=== PATIENT | female | born 1990 | race Caucasian/White ===

== ENCOUNTER 2019-10-19 11:57 | Observation (INO) | payer OTHER ==
[2019-10-19 12:05] VITALS: TEMP 98
[2019-10-19] MEDS ORDERED: SODIUM CHLORIDE 0.9% 1,000 ML IV ONE ×2 (12:17→16:05)
[2019-10-19 12:39] LABS: Basophils # (A) 0.1 k/uL (0-0.2); Basophils % (A) 1 %; Eosinophils # (A) 0.2 k/uL (0-0.7); Eosinophils % (A) 1 %; HCT 44.3 % (34.0-46.0); HGB 14.3 gm/dL (11.4-16.0); Lymphocytes # (A) 2.1 k/uL (1.0-4.8); Lymphocytes % (A) 17 %; MCH 30.4 pg (25.0-35.0); MCHC 32.4 g/dL (31.0-37.0); MCV 93.9 fL (80.0-100.0); Mean Platelet Volume 6.4; Monocytes # (A) 0.5 k/uL (0-1.0); Monocytes % (A) 4 %; Neutrophils # (A) 9.5 k/uL (1.3-7.7); Neutrophils % (A) 77 %; Platelet Count 370 k/uL (150-450); RBC 4.72 m/uL (3.80-5.40); RDW 12.5 % (11.5-15.5); WBC 12.5 k/uL (3.8-10.6)
[2019-10-19 12:48] LABS: ALT 26 U/L (9-52); AST 20 U/L (14-36); African American GFR (CKD) 62 (>60 ml/min/1.73 sqM); Albumin 4.1 g/dL (3.5-5.0); Alkaline Phosphatase 75 U/L (38-126); Anion Gap 14 mmol/L; Blood Urea Nitrogen 28 mg/dL (7-17); Calcium 9.8 mg/dL (8.4-10.2); Carbon Dioxide 20 mmol/L (22-30); Chloride 103 mmol/L (98-107); Glucose 388 mg/dL (74-99); Non-African American GFR(CKD) 54 (>60 ml/min/1.73 sqM); Potassium 4.4 mmol/L (3.5-5.1); Sodium 137 mmol/L (137-145); Total Bilirubin 0.8 mg/dL (0.2-1.3); Total Protein 6.8 g/dL (6.3-8.2)
--- NOTE | 2019-10-19 12:57 | ED ---
General Adult HPI - General Chief complaint: Nausea/Vomiting/Diarrhea Stated complaint: Eye Pain & hyperglycemia Time Seen by Provider: 10/19/19 12:05 Source: patient, RN notes reviewed Mode of arrival: ambulatory Limitations: no limitations - History of Present Illness Initial comments: This is a pleasant 29-year-old female presents emergency Department with chief complaint of nausea vomiting hyperglycemia, left eye changes. Patient states that she routinely has elevated blood sugar treated for 5 or so she feels that she may be in DKA. She had associated nausea vomiting abdominal discomfort is not feeling well. Fatigue. Patient states she does feel slightly improved after vomiting prior to arrival. She has no localized abdominal pain no recent cough or cold-like symptoms no URI fevers or chills. Patient states proximal one hour prior arrival she noticed her left eye had this dark stringy like structure. She states that she got there something in front of her realize it was in her vision. She states that she moves quickly does move it seems to be in approximately 10 o'clock position. She states it is more reddish discoloration at this time. She has no pain with ocular movement. Patient states that she had no trauma she does admit that she's had prior surgery left eye for hemorrhaging from her diabetes. She states this was done in November - Related Data Home Medications Medication Instructions Recorded Confirmed ALPRAZolam [Xanax] 0.5 mg PO Q8H PRN 11/16/14 11/16/14 INSULIN ASPART (NovoLOG) [NovoLOG 0 unit SQ TID 11/16/14 11/16/14 (formulary)] Pantoprazole Sodium [Protonix] 40 mg PO DAILY 11/16/14 11/16/14 Previous Rx's Medication Instructions Recorded Insulin Detemir (Levemir) [Levemir] 25 unit SQ BID #1 vial 11/18/14 Vancomycin Oral Solution 250 mg PO Q6HR 14 Days ml 11/18/14 traMADol HCl [Ultram] 50 mg PO QID PRN #40 tab 11/18/14 Allergies Allergy/AdvReac Type Severity Reaction Status Date / Time acetaminophen Allergy Unknown Verified 10/19/19 12:04 [From Darvocet-N] propoxyphene Allergy Unknown Verified 10/19/19 12:04 [From Darvocet-N] tramadol Allergy Unknown Verified 10/19/19 12:04 hydromorphone HCl AdvReac Anaphylaxis Verified 10/19/19 12:03 [From Dilaudid] venom-honey bee AdvReac Unknown Verified 10/19/19 12:03 [bee venom (honey bee)] Review of Systems ROS Statement: Those systems with pertinent positive or pertinent negative responses have been documented in the HPI. ROS Other: All systems not noted in ROS Statement are negative. Past Medical History Past Medical History: Diabetes Mellitus, GERD/Reflux, Hypertension Additional Past Medical History / Comment(s): left leg fracture last week(TIBIA) History of Any Multi-Drug Resistant Organisms: C-DIFF Date of last positivie culture/infection: 2013 MDRO Source:: stool Past Surgical History: Adenoidectomy, Cholecystectomy, Orthopedic Surgery, Tonsi llectomy Additional Past Surgical History / Comment(s): 2 KNEE SCOPES, EAR TUBES Past Anesthesia/Blood Transfusion Reactions: No Reported Reaction Past Psychological History: Anxiety Smoking Status: Never smoker Past Alcohol Use History: None Reported Past Drug Use History: None Reported - Past Family History Father Family Medical History: Unable to Obtain Mother Family Medical History: No Reported History General Exam Limitations: no limitations General appearance: alert, in no apparent distress Head exam: Present: atraumatic, normocephalic, normal inspection Eye exam: Present: normal appearance, PERRL, EOMI, other (Left Pressure 28, pressure right 25). Absent: scleral icterus, conjunctival injection, periorbital swelling Pupils: Present: normal accommodation ENT exam: Present: normal exam, normal oropharynx, mucous membranes moist Neck exam: Present: normal inspection, full ROM. Absent: tenderness, meningismus, lymphadenopathy Respiratory exam: Present: normal lung sounds bilaterally. Absent: respiratory distress, wheezes, rales, rhonchi, stridor Cardiovascular Exam: Present: regular rate, normal rhythm, normal heart sounds. Absent: systolic murmur, diastolic murmur, rubs, gallop, clicks GI/Abdominal exam: Present: soft, normal bowel sounds. Absent: distended, tenderness, guarding, rebound, rigid Course Vital Signs 10/19/19 12:01 Temperature 98.0 F Pulse Rate 108 H Respiratory 16 Rate Blood Pressure 129/84 O2 Sat by Pulse 100 Oximetry Medical Decision Making - Medical Decision Making Patient will be admitted for DKA, patient's case discussed with service parts driver Dr. Herrera advised to call Dr. Batres who is familiar with the patient. I did discuss the case with Dr. Batres who will evaluate the patient, follow-up also in office believes it is related to a vitreous hemorrhage - Lab Data Result diagrams: 10/19/19 10:15 10/19/19 10:15 Lab Results 10/19/19 10/19/19 10/19/19 Range/Units 10:15 10:15 10:15 WBC 12.5 H (3.8-10.6) k/uL RBC 4.72 (3.80-5.40) m/uL Hgb 14.3 (11.4-16.0) gm/dL Hct 44.3 (34.0-46.0) % MCV 93.9 (80.0-100.0) fL MCH 30.4 (25.0-35.0) pg MCHC 32.4 (31.0-37.0) g/dL RDW 12.5 (11.5-15.5) % Plt Count 370 (150-450) k/uL Neutrophils % 77 % Lymphocytes % 17 % Monocytes % 4 % Eosinophils % 1 % Basophils % 1 % Neutrophils # 9.5 H (1.3-7.7) k/uL Lymphocytes # 2.1 (1.0-4.8) k/uL Monocytes # 0.5 (0-1.0) k/uL Eosinophils # 0.2 (0-0.7) k/uL Basophils # 0.1 (0-0.2) k/uL Sodium 137 (137-145) mmol/L Potassium 4.4 (3.5-5.1) mmol/L Chloride 103 (98-107) mmol/L Carbon Dioxide 20 L (22-30) mmol/L Anion Gap 14 mmol/L BUN 28 H (7-17) mg/dL Creatinine 1.35 H (0.52-1.04) mg/dL Est GFR (CKD-EPI)AfAm 62 (>60 ml/min/1.73 sqM) Est GFR (CKD-EPI)NonAf 54 (>60 ml/min/1.73 sqM) Glucose 388 H (74-99) mg/dL Plasma Lactic Acid Christopher 1.0 (0.7-2.0) mmol/L Calcium 9.8 (8.4-10.2) mg/dL Total Bilirubin 0.8 (0.2-1.3) mg/dL AST 20 (14-36) U/L ALT 26 (9-52) U/L Alkaline Phosphatase 75 (38-126) U/L Total Protein 6.8 (6.3-8.2) g/dL Albumin 4.1 (3.5-5.0) g/dL Lipase 223 (23-300) U/L Urine Color Urine Appearance (Clear) Urine pH (5.0-8.0) Ur Specific [place] (1.001-1.035) Urine Protein (Negative) Urine Glucose (UA) (Negative) Urine Ketones (Negative) Urine Blood (Negative) Urine Nitrite (Negative) Urine Bilirubin (Negative) Urine Urobilinogen (<2.0) mg/dL Ur Leukocyte Esterase (Negative) Urine RBC (0-5) /hpf Urine WBC (0-5) /hpf Ur Squamous Epith Cells (0-4) /hpf Urine Bacteria (None) /hpf Urine Mucus (None) /hpf Urine HCG, Qual (Not Detectd) Acetone, Qual Positive (Negative) 10/19/19 10/19/19 Range/Units 12:46 12:46 WBC (3.8-10.6) k/uL RBC (3.80-5.40) m/uL Hgb (11.4-16.0) gm/dL Hct (34.0-46.0) % MCV (80.0-100.0) fL MCH (25.0-35.0) pg MCHC (31.0-37.0) g/dL RDW (11.5-15.5) % Plt Count (150-450) k/uL Neutrophils % % Lymphocytes % % Monocytes % % Eosinophils % % Basophils % % Neutrophils # (1.3-7.7) k/uL Lymphocytes # (1.0-4.8) k/uL Monocytes # (0-1.0) k/uL Eosinophils # (0-0.7) k/uL Basophils # (0-0.2) k/uL Sodium (137-145) mmol/L Potassium (3.5-5.1) mmol/L Chloride (98-107) mmol/L Carbon Dioxide (22-30) mmol/L Anion Gap mmol/L BUN (7-17) mg/dL Creatinine (0.52-1.04) mg/dL Est GFR (CKD-EPI)AfAm (>60 ml/min/1.73 sqM) Est GFR (CKD-EPI)NonAf (>60 ml/min/1.73 sqM) Glucose (74-99) mg/dL Plasma Lactic Acid Christopher (0.7-2.0) mmol/L Calcium (8.4-10.2) mg/dL Total Bilirubin (0.2-1.3) mg/dL AST (14-36) U/L ALT (9-52) U/L Alkaline Phosphatase (38-126) U/L Total Protein (6.3-8.2) g/dL Albumin (3.5-5.0) g/dL Lipase (23-300) U/L Urine Color Light Yellow Urine Appearance Clear (Clear) Urine pH 5.5 (5.0-8.0) Ur Specific [place] 1.016 (1.001-1.035) Urine Protein 2+ H (Negative) Urine Glucose (UA) 4+ H (Negative) Urine Ketones 2+ H (Negative) Urine Blood Small H (Negative) Urine Nitrite Negative (Negative) Urine Bilirubin Negative (Negative) Urine Urobilinogen <2.0 (<2.0) mg/dL Ur Leukocyte Esterase Negative (Negative) Urine RBC 6 H (0-5) /hpf Urine WBC 1 (0-5) /hpf Ur Squamous Epith Cells 1 (0-4) /hpf Urine Bacteria Occasional H (None) /hpf Urine Mucus Rare H (None) /hpf Urine HCG, Qual Not Detected (Not Detectd) Acetone, Qual (Negative) Critical Care Time Critical Care Time: Yes Total Critical Care Time: 35 Critical Care Time: Total 35 minutes of critical care, use initially evaluated patient, reviewed past medical history medications and ordered labs in urinalysis. Patient vomiting DKA with a glucose of 388, bicarbonate 20 with 2+ ketones and acetone positive. Patient will be admitted for IV insulin, IV hydration. Patient also had visual changes in which case discussed with ophthalmology for further evaluation. Disposition Clinical Impression: DKA (diabetic ketoacidoses), Visual disturbance Disposition[facility] Condition: Fair Referrals: None,Stated [Primary Care Provider] - 1-2 days
[2019-10-19 13:11] LABS: Appearance,Urine Clear (Clear); Bacteria,Urine Occasional /hpf; Bilirubin,Urine Negative (Negative); Blood,Urine Small (Negative); Color,Urine Light Yellow; Glucose,Urine (UA) 4+ (Negative); Leukocyte Esterase,Urine Negative (Negative); Mucus,Urine Rare /hpf; Nitrite,Urine Negative (Negative); PH, Urine 5.5 (5.0-8.0); Protein,Urine 2+ (Negative); RBC,Urine 6 /hpf (0-5); Specific Gravity,Urine 1.016 (1.001-1.035); Squamous Epithelial Cell,Urine 1 /hpf (0-4); Urobilinogen,Urine <2.0 mg/dL (<2.0); WBC,Urine 1 /hpf (0-5)
[2019-10-19 13:19] LABS: Ketones,Urine 2+ (Negative)
[2019-10-19] MEDS ORDERED: SODIUM CHLORIDE 0.9% 1,000 ML IV SCH (13:45)
[2019-10-19] MEDS ORDERED: INSULIN REGULAR 100 UNIT in SODIUM CHLORIDE 0.9% 100 ML IV SCH (13:45)
[2019-10-19 14:17] LABS: Glucose,Whole Blood 264 mg/dL (75-99)
[2019-10-19 14:27] VITALS: RESP 18
[2019-10-19 14:44] LABS: VBG PH 7.32 (7.31-7.41)
[2019-10-19] MEDS ORDERED: D5-0.45% NACL WITH KCL 20MEQ/L 1,000 ML IV SCH (15:00)
[2019-10-19 16:10] VITALS: BP 122/69; PULSE 100
[2019-10-19] MEDS ORDERED: ONDANSETRON 4 MG/2 ML VIAL IVP PRN (16:12)
[2019-10-19] MEDS ORDERED: ACETAMINOPHEN TAB 325 MG TAB PO PRN (16:12)
[2019-10-19] MEDS ORDERED: NALOXONE 0.4 MG/ML 1 ML VIAL IV PRN (16:12)
[2019-10-19 16:37] LABS: Glucose,Whole Blood 305 mg/dL (75-99)
[2019-10-19] MEDS ORDERED: ONDANSETRON 4 MG TAB PO PRN (16:59)
[2019-10-19] MEDS ORDERED: hydrOXYzine PAMOATE 25 MG CAP PO PRN (16:59)
[2019-10-19] MEDS ORDERED: Insulin Aspart (For Pump) 100 UNIT/ML VIAL SQ-PUMP SCH (17:00)
--- NOTE | 2019-10-19 17:04 | P.HPIM ---
History of Present Illness H&P Date: 10/19/19 Chief Complaint: high blood sugars Patient is a 29-year-old female past medical history of type 1 diabetes mellitus diagnosed at age 7 who wears a continuous pump as well as a continuous 24-hour glucose monitor, chronic kidney disease, acid reflux, and high blood pressure presented to the emergency department with complaints of visual changes in her outer upper visual field on the left. She underwent an extensive evaluation in the ER. On arrival she was slightly tachycardic without a pulse of 108 her vital signs were otherwise within normal limits. Urinalysis showed slightly elevated white blood cell count of 12.5, carbon dioxide 20, anion gap 14, BUN 28, creatinine 1.35 and glucose of 388. She was acetone positive. VBG showed pH of 7.32. She was given 1 L of IV fluids. An insulin drip was ordered. She was then started on D5 half-normal with 20 of KCl. Patient seen and examined in the emergency department. She states that she felt herself going into DKA and had been chasing some high blood sugars over the last 24 hours. Today she self-induced vomiting. After she vomited she noticed a floater in her left eye upper outer quadrant. She states that it persisted and has not changed with where she is looking her or what she is focusing on. She does have some pressure but no pain behind the eye. She reports this as a Brown ready and of cloudy-looking area. She describes it almost is of Micronesian smoke. She denies any headaches, visual loss, decreased visual acuity, flashes of light or scotomas. She denies any recent illnesses such as cough, cold, fever, flu, unexplained diarrhea, or urinary tract symptoms. She reports that she has a history of multiple bouts of DKA her last BM year ago. She follows with Dr. Camarena Her last A1c was 9.2 prior to that it had been 14. She believes that the flare this time is being caused by stress. She is currently working 3 jobs. She states she does not fill ill overall. She reports that she only came to the ER secondary to her visual changes and wanting tube exit fluid. She feels a s though she could manage her DKA at home. She states she has had sugars up to the 700s. She denies any increased thirst or urination. She feels as though she was perfectly capable to follow-up in the outpatient setting for her DKA. Review of Systems Pertinent positives and negatives as discussed in HPI, a complete review of systems was performed and all other systems are negative. Past Medical History Past Medical History: Diabetes Mellitus, GERD/Reflux, Hypertension Additional Past Medical History / Comment(s): Neuropathy, epilepsy, gastroparesis, depression, anxiety History of Any Multi-Drug Resistant Organisms: C-DIFF Date of last positivie culture/infection: 2013 MDRO Source:: stool Past Surgical History: Adenoidectomy, Cholecystectomy, Orthopedic Surgery, Tonsillectomy Additional Past Surgical History / Comment(s): 2 KNEE SCOPES, EAR TUBES, a dditional left knee surgery related to fracture Past Anesthesia/Blood Transfusion Reactions: No Reported Reaction Past Psychological History: Anxiety Smoking Status: Never smoker Past Alcohol Use History: None Reported Past Drug Use History: None Reported Additional History: , currently working 3 jobs - Past Family History Father Family Medical History: Unable to Obtain Mother Family Medical History: No Reported History Grandfather Additional Family Medical History / Comment(s): Diabetes mellitus type 2 Medications and Allergies Home Medications Medication Instructions Recorded Confirmed Type RX: Pantoprazole Sodium [Protonix] 40 mg PO DAILY 11/16/14 10/19/19 History Divalproex Sodium [Depakote] 500 mg PO BID 10/19/19 10/19/19 History Insulin Aspart (For Pump) [NovoLOG 0.01 unit SQ-PUMP CONTINUOUS 10/19/19 10/19/19 History (For Pump)] Levothyroxine Sodium [Synthroid] 50 mcg PO DAILY 10/19/19 10/19/19 History Metoclopramide [Reglan] 10 mg PO ACHS 10/19/19 10/19/19 History OLANZapine [ZyPREXA] 2.5 mg PO HS 10/19/19 10/19/19 History Ondansetron HCl [Zofran] 8 mg PO Q12H PRN 10/19/19 10/19/19 History RX: Gabapentin 600 mg PO HS 10/19/19 10/19/19 History amLODIPine [Norvasc] 5 mg PO DAILY 10/19/19 10/19/19 History hydrOXYzine PAMOATE [Vistaril] 50 mg PO TID PRN 10/19/19 10/19/19 History lamoTRIgine [LaMICtal] 25 mg PO HS 10/19/19 10/19/19 History valACYclovir [Valtrex] 500 mg PO DAILY 10/19/19 10/19/19 History Allergies Allergy/AdvReac Type Severity Reaction Status Date / Time propoxyphene Allergy Unknown Verified 10/19/19 14:52 [From Darvocet-N] tramadol Allergy Unknown Verified 10/19/19 14:52 hydromorphone HCl AdvReac Anaphylaxis Verified 10/19/19 14:52 [From Dilaudid] venom-honey bee AdvReac Unknown Verified 10/19/19 14:52 [bee venom (honey bee)] Physical Exam Osteopathic Statement: *. No significant issues noted on an osteopathic structural exam other than those noted in the History and Physical/Consult. Vitals: Vital Signs Temp Pulse Resp BP Pulse Ox 10/19/19 15:12 98.0 F 91 18 116/70 98 10/19/19 14:25 98 18 140/90 99 10/19/19 12:01 98.0 F 108 H 16 129/84 100 Intake and Output 10/19/19 10/19/19 10/19/19 06:59 14:59 22:59 Other: Weight 66.587 kg General: non toxic, no distress, appears at stated age, normal weight Derm: multiple tattoos, no unusual rashes/lesions no unusual ecchymoses, warm, dry Head: atraumatic, normocephalic, symmetric Eyes: EOMI, no lid lag, anicteric sclera, pupils equal round reactive to light, visual acuity intact, visual armendariz testing intact ENT: Nose and ears atraumatic, no thrush, no pharyngeal erythema Neck: No thyromegaly, no cervical lymphadenopathy, trachea midline, supple Mouth: no lip lesion, mucus membranes dry Cardiovascular: S1S2 reg, no murmur, positive posterior tibial pulse bilateral, no edema, capillary refill less than 2 seconds Lungs: CTA bilateral, no rhonchi, no rales , no accessory muscle use Abdominal: soft, nontender to palpation, no guarding, no appreciable organomegaly, normal bowel sounds Ext: no gross muscle atrophy, muscle strength 5 out of 5 in all 4 extremities grossly, no contractures, Neuro: CN II-XI grossly intact, light touch intact all 4 extremities, finger to nose within normal limits, Psych: Alert, oriented, appropriate affect Results CBC & Chem 7: 10/19/19 10:15 10/19/19 10:15 Labs: Abnormal Lab Results - Last 24 Hours (Table) 10/19/19 10/19/19 10/19/19 Range/Units 10:15 10:15 12:46 WBC 12.5 H (3.8-10.6) k/uL Neutrophils # 9.5 H (1.3-7.7) k/uL VBG HCO3 (24-28) mmol/L Carbon Dioxide 20 L (22-30) mmol/L BUN 28 H (7-17) mg/dL Creatinine 1.35 H (0.52-1.04) mg/dL Glucose 388 H (74-99) mg/dL POC Glucose (mg/dL) (75-99) mg/dL Urine Protein 2+ H (Negative) Urine Glucose (UA) 4+ H (Negative) Urine Ketones 2+ H (Negative) Urine Blood Small H (Negative) Urine RBC 6 H (0-5) /hpf Urine Bacteria Occasional H (None) /hpf Urine Mucus Rare H (None) /hpf 10/19/19 10/19/19 Range/Units 14:10 14:15 WBC (3.8-10.6) k/uL Neutrophils # (1.3-7.7) k/uL VBG HCO3 21 L (24-28) mmol/L Carbon Dioxide (22-30) mmol/L BUN (7-17) mg/dL Creatinine (0.52-1.04) mg/dL Glucose (74-99) mg/dL POC Glucose (mg/dL) 264 H (75-99) mg/dL Urine Protein (Negative) Urine Glucose (UA) (Negative) Urine Ketones (Negative) Urine Blood (Negative) Urine RBC (0-5) /hpf Urine Bacteria (None) /hpf Urine Mucus (None) /hpf Thrombosis Risk Factor Assmnt - DVT/VTE Prophylaxis DVT/VTE Prophylaxis: Low risk, early ambulation encouraged Assessment and Plan Assessment: Mild DKA - additional 1L bolus of NS - repeat labs at 1730 - Continue with pump - q 1 hour accuchecks - likely home tonight if AG improved and BS controlled after IVF Visual disturbance - Can be seen in office on Wednesday by Dr. Hutchins - Spoke with Dr. Batres HTN, controlled - resume home medications CKD III - continue out patient follow-up, patient is a jacobs has seen nephrology in the past GERD - PPI The patient is placed in observation with an anticipated less than 2 midnight stay for evaluation of mild DKA. DVT prophylaxis: early ambulation Discussed with: Patient, , nursing, Dr. Batres Anticipated discharge date: tonight or in AM Anticipated discharge place: home A total of 75 minutes was spent on the care of this complex patient more than 50% of the time was spent in counseling and care coordination.
[2019-10-19] MEDS ORDERED: METOCLOPRAMIDE 10 MG TAB PO SCH (17:30)
[2019-10-19 18:40] LABS: Calcium 8.5 mg/dL (8.4-10.2); Potassium 4.4 mmol/L (3.5-5.1)
--- NOTE | 2019-10-19 19:00 | P.DS ---
Providers Date of admission: 10/19/19 13:34 Expected date of discharge: 10/19/19 Attending physician: Karthikeyan Copeland MD Primary care physician: Stated None Hospital Course: Discharge Diagnosis: milkd DKA, resolved Visual disturbance HTN CKD III GERD Hospital Course: Patient is a 29-year-old female past medical history of type 1 diabetes mellitus diagnosed at age 7 who wears a continuous pump as well as a continuous 24-hour glucose monitor, chronic kidney disease, acid reflux, and high blood pressure presented to the emergency department with complaints of visual changes in her outer upper visual field on the left. She underwent an extensive evaluation in the ER. On arrival she was slightly tachycardic without a pulse of 108 her vital signs were otherwise within normal limits. Urinalysis showed slightly elevated white blood cell count of 12.5, carbon dioxide 20, anion gap 14, BUN 28, creatinine 1.35 and glucose of 388. She was acetone positive. VBG showed pH of 7.32. She was given 1 L of IV fluids. An insulin drip was ordered but was not administered in the ER. She was then started on D5 half-normal with 20 of KCl her sugar did go up slightly with fluids containing glucose. She was admitted. She recieved another 1L bolus of NS< D5 1/2 NS was stopped. Labs were repeated and Anion gap was close slightly acidotic due to increased chloride form IVF. She was feeling well and was determined stable for discharge home. I did speak with optho. Patient is aware to call tomorrow for and appointment on Wednesday with Dr. Hutchins. She will stay off work until she is seen by him. For physical exam see H and P same date, A total of 25 minutes of time were spent preparing this complex discharge summary . Patient Condition at Discharge: Stable Plan - Discharge Summary Discharge Rx Participant: No New Discharge Prescriptions: Continue Pantoprazole Sodium [Protonix] 40 mg PO DAILY valACYclovir [Valtrex] 500 mg PO DAILY hydrOXYzine PAMOATE [Vistaril] 50 mg PO TID PRN PRN Reason: Itching OLANZapine [ZyPREXA] 2.5 mg PO HS amLODIPine [Norvasc] 5 mg PO DAILY Ondansetron HCl [Zofran] 8 mg PO Q12H PRN PRN Reason: Nausea Insulin Aspart (For Pump) [NovoLOG (For Pump)] 0.01 unit SQ-PUMP CONTINUOUS lamoTRIgine [LaMICtal] 25 mg PO HS Metoclopramide [Reglan] 10 mg PO ACHS Gabapentin 600 mg PO HS Divalproex Sodium [Depakote] 500 mg PO BID Levothyroxine Sodium [Synthroid] 50 mcg PO DAILY Discharge Medication List Pantoprazole Sodium [Protonix] 40 mg PO DAILY 11/16/14 [History] Divalproex Sodium [Depakote] 500 mg PO BID 10/19/19 [History] Gabapentin 600 mg PO HS 10/19/19 [History] Insulin Aspart (For Pump) [NovoLOG (For Pump)] 0.01 unit SQ-PUMP CONTINUOUS 10/19/19 [History] Levothyroxine Sodium [Synthroid] 50 mcg PO DAILY 10/19/19 [History] Metoclopramide [Reglan] 10 mg PO ACHS 10/19/19 [History] OLANZapine [ZyPREXA] 2.5 mg PO HS 10/19/19 [History] Ondansetron HCl [Zofran] 8 mg PO Q12H PRN 10/19/19 [History] amLODIPine [Norvasc] 5 mg PO DAILY 10/19/19 [History] hydrOXYzine PAMOATE [Vistaril] 50 mg PO TID PRN 10/19/19 [History] lamoTRIgine [LaMICtal] 25 mg PO HS 10/19/19 [History] valACYclovir [Valtrex] 500 mg PO DAILY 10/19/19 [History] Follow up Appointment(s)/Referral(s): Jarrett Delgadillo MD [REFERRING] - 1 Week Lenny Hutchins MD [REFERRING] - 1 Week (call office tomorrow for appointment on Tuesday 10/23 ) None,Stated [Primary Care Provider] - 1-2 days Activity/Diet/Wound Care/Special Instructions: Activity: as tolerated Diet: carb consistent encourage fluid Special Instructions: No heavy lifting Discharge/Stand Alone Forms: Work/Release Restrictions Form Discharge Disposition: HOME SELF-CARE
[2019-10-19] MEDS ORDERED: DIVALPROEX 500 MG TABLET.DR PO SCH (21:00)
[2019-10-19] MEDS ORDERED: OLANZapine 2.5 MG TAB PO SCH (21:00)
[2019-10-19] MEDS ORDERED: GABAPENTIN 300 MG CAP PO SCH (21:00)
[2019-10-19] MEDS ORDERED: lamoTRIgine 25 MG TAB PO SCH (21:00)
[2019-10-20] MEDS ORDERED: LEVOTHYROXINE 50 MCG TAB PO SCH (06:30)
[2019-10-20] MEDS ORDERED: PANTOPRAZOLE 40 MG TABLET PO SCH (07:30)
[2019-10-20] MEDS ORDERED: amLODIPine 5 MG TAB PO SCH (09:00)
[2019-10-20] MEDS ORDERED: valACYclovir 500 MG TAB PO SCH (09:00)
== END 2019-10-19 19:27 | disposition home or self-care (01) ==
LOC: EC 11:57 → INTOOBSV 13:34 → 3SCARD 13:34
PROVIDERS: ADMIT Family Medicine; ATTEND Family Medicine
DX: E10.10 Type 1 diabetes mellitus with ketoacidosis without coma (principal); E10.22 Type 1 diabetes mellitus with diabetic chronic kidney disease; E10.43 Type 1 diabetes mellitus with diabetic autonomic (poly)neuropathy; F41.9 Anxiety disorder, unspecified; I12.9 Hypertensive chronic kidney disease with stage 1 through stage 4 chronic kidney disease, or unspecified chronic kidney disease; K21.9 Gastro-esophageal reflux disease without esophagitis; K31.84 Gastroparesis; N18.3 Chronic kidney disease, stage 3 (moderate); Z79.4 Long term (current) use of insulin; Z79.890 Hormone replacement therapy; Z79.899 Other long term (current) drug therapy; Z83.3 Family history of diabetes mellitus; Z96.41 Presence of insulin pump (external) (internal); Z16.24 Resistance to multiple antibiotics; Z90.49 Acquired absence of other specified parts of digestive tract; Z88.5 Allergy status to narcotic agent; Z88.8 Allergy status to other drugs, medicaments and biological substances; Z91.030 Bee allergy status; H53.9 Unspecified visual disturbance
CPT/HCPCS: 96366; 96361; 96365; 99284; 36415; 80053; 80048; 82803; 82009; 83605; 83690; 85025; 81001; 81025; G0378

== ENCOUNTER 2020-08-18 04:07 | Emergency (ER) | payer BC, OTHER ==
[2020-08-18 04:22] VITALS: RESP 18
[2020-08-18] MEDS ORDERED: SODIUM CHLORIDE 0.9% 500 ML 500 ML IV STA (04:32)
[2020-08-18] MEDS ORDERED: HYDROcodone/APAP 5-325MG 1 EACH TAB PO STA (04:33)
--- NOTE | 2020-08-18 05:16 | CT ---
EXAMINATION TYPE: CT brain fabyine wo con DATE OF EXAM: 08/18/2020 COMPARISON: None HISTORY: syncope Headache. Neck pain. CT DLP: 1334.5 mGycm Automated exposure control for dose reduction was used. Ventricles and sulci appear normal. There is no mass effect or midline shift. There is no sign of int racranial hemorrhage. The calvarium is intact. There is no evidence of cerebral edema. Cervical vertebra have normal spacing and alignment. Posterior elements are intact. Facet joints appe ar normal. Prevertebral soft tissues appear normal. The skull base is intact. There is normal aeratio n of the mastoid sinuses. IMPRESSION: Normal CT scan of the brain. Normal CT scan cervical spine.
[2020-08-18 05:35] LABS: Albumin 3.9 g/dL (3.5-5.0); Calcium 9.9 mg/dL (8.4-10.2); Potassium 3.7 mmol/L (3.5-5.1); Total Bilirubin 0.3 mg/dL (0.2-1.3); Total Protein 6.6 g/dL (6.3-8.2)
[2020-08-18 05:39] VITALS: TEMP 98
[2020-08-18 05:46] LABS: Basophils # (A) 0.2 k/uL (0-0.2); Basophils % (A) 1 %; Eosinophils # (A) 0.3 k/uL (0-0.7); Eosinophils % (A) 3 %; HCT 48.5 % (34.0-46.0); HGB 15.5 gm/dL (11.4-16.0); Lymphocytes # (A) 4.6 k/uL (1.0-4.8); Lymphocytes % (A) 38 %; MCH 29.6 pg (25.0-35.0); MCHC 31.9 g/dL (31.0-37.0); MCV 92.7 fL (80.0-100.0); Mean Platelet Volume 7.4; Monocytes # (A) 0.6 k/uL (0-1.0); Monocytes % (A) 5 %; Neutrophils # (A) 6.1 k/uL (1.3-7.7); Neutrophils % (A) 51 %; Platelet Count 349 k/uL (150-450); RBC 5.23 m/uL (3.80-5.40); RDW 12.4 % (11.5-15.5)
--- NOTE | 2020-08-18 06:09 | ED ---
General Adult HPI - General Chief complaint: Syncope Stated complaint: Syncope Time Seen by Provider: 08/18/20 04:22 Source: patient, EMS Mode of arrival: EMS Limitations: no limitations - History of Present Illness Initial comments: This patient is 30-year-old woman with history of multiple previous syncopal episode 2 presents today to be evaluated after she had one of these at home. Patient had gotten up to use the bathroom she states she then had passed out and struck the right side of her head. The patient states she has had history of syncopal episodes but usually it is in response to pain. She does get abdominal pains related to gastroparesis and this is usually caused her syncope in the past. Patient states she is feeling back to her baseline other than a little dull ache. No neurologic symptoms. No chest pain, dyspnea, diaphoresis, nausea or vomiting. Onset/Timin -: hour(s) Location: head Radiation: non-radiation Quality: aching Consistency: constant Improves with: none Worsens with: none Associated Symptoms: syncope Treatments Prior to Arrival: none - Related Data Home Medications Medication Instructions Recorded Confirmed Pantoprazole Sodium [Protonix] 40 mg PO DAILY 11/16/14 10/19/19 Divalproex Sodium [Depakote] 500 mg PO BID 10/19/19 10/19/19 Gabapentin 600 mg PO HS 10/19/19 10/19/19 Insulin Aspart (For Pump) [NovoLOG 0.01 unit SQ-PUMP CONTINUOUS 10/19/19 10/19/19 (For Pump)] Levothyroxine Sodium [Synthroid] 50 mcg PO DAILY 10/19/19 10/19/19 Metoclopramide [Reglan] 10 mg PO ACHS 10/19/19 10/19/19 OLANZapine [ZyPREXA] 2.5 mg PO HS 10/19/19 10/19/19 Ondansetron HCl [Zofran] 8 mg PO Q12H PRN 10/19/19 10/19/19 amLODIPine [Norvasc] 5 mg PO DAILY 10/19/19 10/19/19 hydrOXYzine pamoate [Vistaril] 50 mg PO TID PRN 10/19/19 10/19/19 lamoTRIgine [LaMICtal] 25 mg PO HS 12/05/19 12/05/19 valACYclovir [Valtrex] 500 mg PO DAILY 10/19/19 10/19/19 Allergies Allergy/AdvReac Type Severity Reaction Status Date / Time propoxyphene Allergy Unknown Verified 08/18/20 04:22 [From Darvocet-N] tramadol Allergy Unknown Verified 08/18/20 04:22 hydromorphone HCl AdvReac Anaphylaxis Verified 08/18/20 04:22 [From Dilaudid] venom-honey bee AdvReac Unknown Verified 08/18/20 04:22 [bee venom (honey bee)] Review of Systems ROS Statement: Those systems with pertinent positive or pertinent negative responses have been documented in the HPI. ROS Other: All systems not noted in ROS Statement are negative. Constitutional: Denies: fever, chills, weakness Eyes: Denies: vision change Respiratory: Denies: cough, dyspnea Cardiovascular: Reports: syncope. Denies: chest pain, palpitations, orthopnea, edema Gastrointestinal: Denies: abdominal pain, nausea, vomiting Genitourinary: Denies: dysuria, hematuria Musculoskeletal: Denies: back pain Skin: Denies: rash Neurological: Reports: as per HPI, headache. Denies: weakness, numbness, paresthesias, confusion Hematological/Lymphatic: Denies: easy bleeding Past Medical History Past Medical History: Diabetes Mellitus, GERD/Reflux, Hypertension Additional Past Medical History / Comment(s): Neuropathy, epilepsy, gastropares is, depression, anxiety History of Any Multi-Drug Resistant Organisms: C-DIFF Date of last positivie culture/infection: 2013 MDRO Source:: stool Past Surgical History: Adenoidectomy, Cholecystectomy, Orthopedic Surgery, Tonsillectomy Additional Past Surgical History / Comment(s): 2 KNEE SCOPES, EAR TUBES, additional left knee surgery related to fracture Past Anesthesia/Blood Transfusion Reactions: No Reported Reaction Past Psychological History: Anxiety Smoking Status: Current some day smoker Past Alcohol Use History: None Reported Past Drug Use History: None Reported - Past Family History Father Family Medical History: Unable to Obtain Mother Family Medical History: No Reported History Grandfather Additional Family Medical History / Comment(s): Diabetes mellitus type 2 General Exam General appearance: alert, in no apparent distress Head exam: Present: atraumatic, normocephalic Eye exam: Present: normal appearance, PERRL, EOMI. Absent: scleral icterus, conjunctival injection, nystagmus Neck exam: Present: normal inspection, tenderness (There is mild upper cervical tenderness with no step-off or deformity), full ROM. Absent: meningismus Respiratory exam: Present: normal lung sounds bilaterally. Absent: respiratory distress, wheezes, rales, rhonchi, stridor Cardiovascular Exam: Present: regular rate, normal rhythm, normal heart sounds. Absent: systolic murmur, diastolic murmur, rubs, gallop GI/Abdominal exam: Present: soft. Absent: distended, tenderness, guarding, rebound, rigid, mass Extremities exam: Present: normal inspection, normal capillary refill. Absent: pedal edema, calf tenderness Back exam: Present: normal inspection. Absent: CVA tenderness (R), CVA tenderness (L) Neurological exam: Present: alert, oriented X3, CN II-XII intact. Absent: motor sensory deficit Skin exam: Present: warm, dry, intact, normal color. Absent: rash Course Vital Signs 08/18/20 08/18/20 08/18/20 04:19 05:22 06:20 Temperature 98.2 F 98.0 F Pulse Rate 77 75 85 Respiratory 18 18 18 Rate Blood Pressure 121/83 102/63 110/75 O2 Sat by Pulse 100 98 98 Oximetry Medical Decision Making - Lab Data Result diagrams: 08/18/20 05:14 08/18/20 05:14 Lab Results 08/18/20 08/18/20 08/18/20 Range/Units 05:14 05:14 05:14 WBC 12.0 H (3.8-10.6) k/uL RBC 5.23 (3.80-5.40) m/uL Hgb 15.5 (11.4-16.0) gm/dL Hct 48.5 H (34.0-46.0) % MCV 92.7 (80.0-100.0) fL MCH 29.6 (25.0-35.0) pg MCHC 31.9 (31.0-37.0) g/dL RDW 12.4 (11.5-15.5) % Plt Count 349 (150-450) k/uL Neutrophils % 51 % Lymphocytes % 38 % Monocytes % 5 % Eosinophils % 3 % Basophils % 1 % Neutrophils # 6.1 (1.3-7.7) k/uL Lymphocytes # 4.6 (1.0-4.8) k/uL Monocytes # 0.6 (0-1.0) k/uL Eosinophils # 0.3 (0-0.7) k/uL Basophils # 0.2 (0-0.2) k/uL Sodium 139 (137-145) mmol/L Potassium 3.7 (3.5-5.1) mmol/L Chloride 108 H (98-107) mmol/L Carbon Dioxide 24 (22-30) mmol/L Anion Gap 7 mmol/L BUN 24 H (7-17) mg/dL Creatinine 1.34 H (0.52-1.04) mg/dL Est GFR (CKD-EPI)AfAm 62 (>60 ml/min/1.73 sqM) Est GFR (CKD-EPI)NonAf 54 (>60 ml/min/1.73 sqM) Glucose 109 H (74-99) mg/dL Calcium 9.9 (8.4-10.2) mg/dL Total Bilirubin 0.3 (0.2-1.3) mg/dL AST 23 (14-36) U/L ALT 16 (4-34) U/L Alkaline Phosphatase 71 (38-126) U/L Troponin I <0.012 (0.000-0.034) ng/mL Total Protein 6.6 (6.3-8.2) g/dL Albumin 3.9 (3.5-5.0) g/dL Disposition Clinical Impression: Syncope, Head injury Disposition: HOME SELF-CARE Condition: Good Instructions (If sedation given, give patient instructions): Syncope (ED), Head Injury (ED) Is patient prescribed a controlled substance at d/c from ED?: No Referrals: None,Stated [Primary Care Provider] - 1-2 days
[2020-08-18 06:36] VITALS: BP 110/75; PULSE 85
== END 2020-08-18 06:20 | disposition home or self-care (01) ==
LOC: EC 04:07
DX: R55 Syncope and collapse (principal); S09.90XA Unspecified injury of head, initial encounter; K21.9 Gastro-esophageal reflux disease without esophagitis; K31.84 Gastroparesis; E11.40 Type 2 diabetes mellitus with diabetic neuropathy, unspecified; F41.9 Anxiety disorder, unspecified; F32.9 Major depressive disorder, single episode, unspecified; G40.909 Epilepsy, unspecified, not intractable, without status epilepticus; F17.200 Nicotine dependence, unspecified, uncomplicated; Z79.4 Long term (current) use of insulin; Z79.899 Other long term (current) drug therapy; Z88.8 Allergy status to other drugs, medicaments and biological substances; Z88.5 Allergy status to narcotic agent; Z91.030 Bee allergy status; Z90.49 Acquired absence of other specified parts of digestive tract; W18.39XA Other fall on same level, initial encounter; Y92.002 Bathroom of unspecified non-institutional (private) residence as the place of occurrence of the external cause
CPT/HCPCS: 36415; 70450; 72125; 80053; 84484; 85025; 93005; 99285

== ENCOUNTER 2021-10-14 17:00 | Emergency (ER) | payer BC, OTHER ==
[2021-10-14 17:09] VITALS: TEMP 98.4
[2021-10-14] MEDS ORDERED: SODIUM CHLORIDE 0.9% 1,000 ML IV STA (17:35)
[2021-10-14 18:12] LABS: Basophils # (A) 0.1 k/uL (0-0.2); Basophils % (A) 1 %; Eosinophils # (A) 0.1 k/uL (0-0.7); Eosinophils % (A) 2 %; HCT 40.7 % (34.0-46.0); HGB 14.3 gm/dL (11.4-16.0); Lymphocytes # (A) 1.8 k/uL (1.0-4.8); Lymphocytes % (A) 27 %; MCH 31.8 pg (25.0-35.0); MCHC 35.2 g/dL (31.0-37.0); MCV 90.3 fL (80.0-100.0); Mean Platelet Volume 7.2; Monocytes # (A) 0.4 k/uL (0-1.0); Monocytes % (A) 5 %; Neutrophils # (A) 4.4 k/uL (1.3-7.7); Neutrophils % (A) 64 %; Platelet Count 310 k/uL (150-450); RBC 4.51 m/uL (3.80-5.40); RDW 11.9 % (11.5-15.5); WBC 6.8 k/uL (3.8-10.6)
[2021-10-14 18:27] LABS: VBG PH 7.37 (7.31-7.41)
[2021-10-14 18:36] LABS: ALT 16 U/L (4-34); AST 20 U/L (14-36); African American GFR (CKD) >90 (>60 ml/min/1.73 sqM); Albumin 4.7 g/dL (3.5-5.0); Alkaline Phosphatase 75 U/L (38-126); Anion Gap 8 mmol/L; Blood Urea Nitrogen 8 mg/dL (7-17); Carbon Dioxide 25 mmol/L (22-30); Chloride 107 mmol/L (98-107); Creatine Kinase 88 U/L (30-135); Glucose 87 mg/dL (74-99); Non-African American GFR(CKD) >90 (>60 ml/min/1.73 sqM); Potassium 4.3 mmol/L (3.5-5.1); Sodium 140 mmol/L (137-145); Total Bilirubin 0.3 mg/dL (0.2-1.3); Total Protein 7.9 g/dL (6.3-8.2)
[2021-10-14] MEDS ORDERED: ONDANSETRON 4 MG/2 ML VIAL IVP STA (18:36)
[2021-10-14 18:52] LABS: HCG,Quantitative Serum <2.4 mIU/mL
[2021-10-14] MEDS ORDERED: KETOROLAC 30 MG/ML 1 ML VIAL IVP STA (18:56)
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
--- NOTE | 2021-10-14 19:20 | XR ---
EXAMINATION TYPE: XR chest 2V DATE OF EXAM: 10/14/2021 COMPARISON: EXAMINATION TYPE: XR chest 2V DATE OF EXAM: 10/14/2021 COMPARISON: Chest radiographs 11/17/2014 HISTORY: Tachypnea. Shortness of breath. TECHNIQUE: Frontal and lateral views of the chest are obtained. FINDINGS: There is no focal air space opacity, pleural effusion, or pneumothorax seen. The cardiac silhouette size is within normal limits. The osseous structures are intact. IMPRESSION: No acute cardiopulmonary process.
[2021-10-14 21:10] VITALS: BP 158/103; PULSE 96; RESP 16
== END 2021-10-14 21:10 | disposition home or self-care (01) ==
LOC: EC 17:00
DX: T58.91XA Toxic effect of carbon monoxide from unspecified source, accidental (unintentional), initial encounter (principal); E11.40 Type 2 diabetes mellitus with diabetic neuropathy, unspecified; E11.43 Type 2 diabetes mellitus with diabetic autonomic (poly)neuropathy; K31.84 Gastroparesis; I10 Essential (primary) hypertension; K21.9 Gastro-esophageal reflux disease without esophagitis; F17.200 Nicotine dependence, unspecified, uncomplicated; F12.90 Cannabis use, unspecified, uncomplicated; Z79.4 Long term (current) use of insulin
CPT/HCPCS: 36415; 93005; 80053; 82375; 82550; 82803; 82009; 83605; 84484; 85025; 84702; 71046; 99284; 96374; 96375; J2405; J1885

== ENCOUNTER 2022-07-14 03:11 | Emergency (ER) | payer OTHER ==
[2022-07-14 03:20] VITALS: RESP 16; TEMP 98.3
[2022-07-14] MEDS ORDERED: SODIUM CHLORIDE 0.9% 1,000 ML IV STA ×2 (03:21→06:40)
[2022-07-14] MEDS ORDERED: ACETAMINOPHEN TAB 500 MG TAB PO STA (03:29)
--- NOTE | 2022-07-14 03:41 | ED ---
Syncope HPI - General Source: patient, RN notes reviewed Mode of arrival: EMS Limitations: no limitations <Epi Cote - Last Filed: 07/14/22 03:41> <Polo Edward - Last Filed: 07/14/22 06:56> - General Chief Complaint: Syncope Stated Complaint: Syncope Time Seen by Provider: 07/14/22 03:21 - History of Present Illness Initial Comments: This is a pleasant 32-year-old female with history of type 1 diabetes mellitus, epilepsy, gastroparesis, neuropathy, hypertension, and acid reflux. She presents to the emergency department tonight after having a syncopal episode at work. Patient states she was at work, turned to her coworker and said she needed to sit down. She states that the next thing she knows she was on the ground and waking up. Apparently the patient lost consciousness. Patient states that she is having pain across her forehead. She is describing a significant headache as well as pain below her right eye and over her nasal bone area. Patient also complaining of neck pain. Patient denies recent illness, no fever or chills, no changes in vision or hearing, no sore throat or difficulty with speech, no chest pain or shortness of breath, no abdominal pain, no nausea or vomiting, no changes in urination or bowel movements, no numbness or tingling, no extremity pain, no skin rashes or lesions. Past medical, surgical, social, and family history reviewed. (Epi Cote) - Related Data Home Medications Medication Instructions Recorded Confirmed Insulin Aspart (For Pump) [NovoLOG 0.01 unit SQ-PUMP CONTINUOUS 10/14/21 10/14/21 (For Pump)] Insulin Glargine [Lantus Vial] 28 unit SQ HS 10/14/21 10/14/21 Allergies Allergy/AdvReac Type Severity Reaction Status Date / Time ibuprofen [From Motrin] Allergy Unknown Verified 07/14/22 03:15 propoxyphene Allergy Unknown Verified 07/14/22 03:15 [From Darvocet-N] tramadol Allergy Unknown Verified 07/14/22 03:15 hydromorphone HCl AdvReac Anaphylaxis Verified 07/14/22 03:15 [From Dilaudid] venom-honey bee AdvReac Unknown Verified 07/14/22 03:15 [bee venom (honey bee)] Review of Systems ROS Other: All systems not noted in ROS Statement are negative. <Epi Cote - Last Filed: 07/14/22 03:41> ROS Other: All systems not noted in ROS Statement are negative. <Polo Edward - Last Filed: 07/14/22 06:56> ROS Statement: Those systems with pertinent positive or pertinent negative responses have been documented in the HPI. Past Medical History Past Medical History: Diabetes Mellitus, GERD/Reflux, Hypertension Additional Past Medical History / Comment(s): Neuropathy, epilepsy, gastroparesis, depression, anxiety History of Any Multi-Drug Resistant Organisms: C-DIFF Date of last positivie culture/infection: 2013 MDRO Source:: stool Past Surgical History: Adenoidectomy, Cholecystectomy, Orthopedic Surgery, Tonsillectomy Additional Past Surgical History / Comment(s): 2 KNEE SCOPES, EAR TUBES, additional left knee surgery related to fracture Past Anesthesia/Blood Transfusion Reactions: No Reported Reaction Past Psychological History: Anxiety Smoking Status: Current some day smoker Past Alcohol Use History: None Reported Past Drug Use History: Marijuana - Past Family History Father Family Medical History: Unable to Obtain Mother Family Medical History: No Reported History Grandfather Additional Family Medical History / Comment(s): Diabetes mellitus type 2 <Epi Cote - Last Filed: 07/14/22 03:41> General Exam Limitations: no limitations General appearance: alert, in distress Head exam: Present: other (Patient has tenderness over the glabella, to the inferior orbital rim and over the nasal bones. No significant tenderness elsewhere. Extraocular movements intact. No evidence of entrapment) Eye exam: Present: normal appearance, PERRL, EOMI, nystagmus (A few beats of nonspecific lateral), periorbital tenderness (Right side). Absent: scleral icterus, conjunctival injection, periorbital swelling Pupils: Absent: irregular, unequal ENT exam: Present: normal exam, mucous membranes moist Neck exam: Present: normal inspection, tenderness (Patient has bilateral cervical paraspinal tenderness with mild midline tenderness.). Absent: meningismus, lymphadenopathy Respiratory exam: Present: normal lung sounds bilaterally. Absent: respiratory distress, wheezes, rales, rhonchi, stridor Cardiovascular Exam: Present: regular rate, normal rhythm, normal heart sounds. Absent: systolic murmur, diastolic murmur, rubs, gallop, clicks GI/Abdominal exam: Present: soft, normal bowel sounds. Absent: distended, tenderness, guarding, rebound, rigid Extremities exam: Present: normal inspection, full ROM, normal capillary refill. Absent: tenderness, pedal edema, joint swelling, calf tenderness Back exam: Present: normal inspection Neurological exam: Present: alert, oriented X3, CN II-XII intact Expanded Patient oriented to: Present: person, place, time Speech: Present: fluid speech Cranial nerves: EOM's Intact: Normal, Gag Reflex: Normal, Tongue Deviation: Normal, Facial Sensation: Normal, Facial Palsy with Forehead Movement: Normal, Facial Palsy without Forehead Movement: Normal Cerebellar function: Finger to Nose: Normal, Heel to Garg: Normal Motor strength exam: RUE: 5, LUE: 5, RLE: 5, LLE: 5 Eye Response: (4) open spontaneously Motor Response: (6) obeys commands Verbal Response: (5) oriented [place] Total: 15 Psychiatric exam: Present: normal affect, normal mood Skin exam: Present: warm, dry, intact, normal color. Absent: rash <Epi Cote - Last Filed: 07/14/22 03:41> General appearance: alert, in no apparent distress Head exam: Present: atraumatic, normocephalic, normal inspection Eye exam: Present: normal appearance, PERRL, EOMI. Absent: scleral icterus, conjunctival injection, periorbital swelling ENT exam: Present: normal exam, mucous membranes moist Neck exam: Present: normal inspection. Absent: tenderness, meningismus, lymphadenopathy Respiratory exam: Present: normal lung sounds bilaterally. Absent: respiratory distress, wheezes, rales, rhonchi, stridor Cardiovascular Exam: Present: regular rate, normal rhythm, normal heart sounds. Absent: systolic murmur, diastolic murmur, rubs, gallop, clicks GI/Abdominal exam: Present: soft, normal bowel sounds. Absent: distended, tenderness, guarding, rebound, rigid Extremities exam: Present: normal inspection, full ROM, normal capillary refill. Absent: tenderness, pedal edema, joint swelling, calf tenderness Back exam: Present: normal inspection Neurological exam: Present: alert, oriented X3, CN II-XII intact Psychiatric exam: Present: normal affect, normal mood Skin exam: Present: warm, dry, intact, normal color. Absent: rash <Polo Edward - Last Filed: 07/14/22 06:56> - General Exam Comments Initial Comments: Well-developed, well-nourished 32-year-old female appears to be in mild distress at time I'm seeing her. Cranial nerves II through XII are intact. Does not appear to be overtly ill or toxic. Vital signs are reviewed (Epi Cote) Course <Polo Edward - Last Filed: 07/14/22 06:56> Vital Signs 07/14/22 03:15 Temperature 98.3 F Pulse Rate 98 Respiratory 16 Rate Blood Pressure 137/96 O2 Sat by Pulse 98 Oximetry - Reevaluation(s) Reevaluation #1: 07/14/22 06:51 Medical record is reviewed (Polo Edward) Reevaluation #2: 07/14/22 06:51 Symptoms are improved here in the ER with no recurrent syncope (Polo Edward) Reevaluation #3: 07/14/22 06:51 Issue informed results and questions answered (Polo Edward) EKG Findings - EKG Comments: EKG Findings:: EKG done at 3:19 AM and read by the ED attending physician r eveals sinus rhythm with a rate of 93, normal intervals, no acute ST or T-wave changes. Normal axis. Normal QRS morphology. <Epi Cote - Last Filed: 07/14/22 03:41> Medical Decision Making <Epi Cote - Last Filed: 07/14/22 03:41> - Lab Data Result diagrams: 07/14/22 03:45 07/14/22 03:45 - Radiology Data Radiology results: report reviewed ( CT brain C-spine and facial bones positive for hematoma chest x-ray negative for acute disease ), image reviewed <Polo Edward - Last Filed: 07/14/22 06:56> - Medical Decision Making Type I diabetic female fell from a standing position, had a premonition that she was going to pass out. Patient struck her head and has a significant headache, facial injury, neck pain. Computed tomography scan ordered. Verbal orders to RN for hard cervical collar Patient will be endorsed to the ED attending physician at 4 AM for further evaluation and disposition. The case was discussed in detail with ED attending physician. Presentation, findings, treatment plan discussed in detail. 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 Patient has had injury, hematoma from fall, patient also has urinary tract infection and elevated blood sugar. Here in the ER will be discharged on antibiotics (Polo Edward) - Lab Data Lab Results 07/14/22 07/14/22 07/14/22 Range/Units 03:45 03:45 03:45 WBC 14.3 H (3.8-10.6) k/uL RBC 4.29 (3.80-5.40) m/uL Hgb 12.9 (11.4-16.0) gm/dL Hct 40.3 (34.0-46.0) % MCV 93.9 (80.0-100.0) fL MCH 30.1 (25.0-35.0) pg MCHC 32.1 (31.0-37.0) g/dL RDW 13.6 (11.5-15.5) % Plt Count 401 (150-450) k/uL MPV 7.8 Neutrophils % 67 % Lymphocytes % 20 % Monocytes % 4 % Eosinophils % 8 % Basophils % 1 % Neutrophils # 9.5 H (1.3-7.7) k/uL Lymphocytes # 2.9 (1.0-4.8) k/uL Monocytes # 0.5 (0-1.0) k/uL Eosinophils # 1.1 H (0-0.7) k/uL Basophils # 0.1 (0-0.2) k/uL VBG pH (7.31-7.41) VBG pCO2 (37-51) mmHg VBG HCO3 (24-28) mmol/L Sodium 134 L (137-145) mmol/L Potassium 3.7 (3.5-5.1) mmol/L Chloride 103 (98-107) mmol/L Carbon Dioxide 23 (22-30) mmol/L Anion Gap 8 mmol/L BUN 25 H (7-17) mg/dL Creatinine 1.47 H (0.52-1.04) mg/dL Est GFR (CKD-EPI)AfAm 54 (>60 ml/min/1.73 sqM) Est GFR (CKD-EPI)NonAf 47 (>60 ml/min/1.73 sqM) Glucose 372 H (74-99) mg/dL Calcium 8.7 (8.4-10.2) mg/dL Magnesium 1.8 (1.6-2.3) mg/dL Total Bilirubin 0.2 (0.2-1.3) mg/dL AST 22 (14-36) U/L ALT 29 (4-34) U/L Alkaline Phosphatase 120 (38-126) U/L Troponin I <0.012 (0.000-0.034) ng/mL Total Protein 5.7 L (6.3-8.2) g/dL Albumin 3.1 L (3.5-5.0) g/dL Urine Color Urine Appearance (Clear) Urine pH (5.0-8.0) Ur Specific [place] (1.001-1.035) Urine Protein (Negative) Urine Glucose (UA) (Negative) Urine Ketones (Negative) Urine Blood (Negative) Urine Nitrite (Negative) Urine Bilirubin (Negative) Urine Urobilinogen (<2.0) mg/dL Ur Leukocyte Esterase (Negative) Urine RBC (0-5) /hpf Urine WBC (0-5) /hpf Ur Squamous Epith Cells (0-4) /hpf Urine Mucus (None) /hpf Urine HCG, Qual (Not Detectd) Acetone, Qual Negative (Negative) 07/14/22 07/14/22 07/14/22 Range/Units 03:45 04:21 04:21 WBC (3.8-10.6) k/uL RBC (3.80-5.40) m/uL Hgb (11.4-16.0) gm/dL Hct (34.0-46.0) % MCV (80.0-100.0) fL MCH (25.0-35.0) pg MCHC (31.0-37.0) g/dL RDW (11.5-15.5) % Plt Count (150-450) k/uL MPV Neutrophils % % Lymphocytes % % Monocytes % % Eosinophils % % Basophils % % Neutrophils # (1.3-7.7) k/uL Lymphocytes # (1.0-4.8) k/uL Monocytes # (0-1.0) k/uL Eosinophils # (0-0.7) k/uL Basophils # (0-0.2) k/uL VBG pH 7.36 (7.31-7.41) VBG pCO2 45 (37-51) mmHg VBG HCO3 25 (24-28) mmol/L Sodium (137-145) mmol/L Potassium (3.5-5.1) mmol/L Chloride (98-107) mmol/L Carbon Dioxide (22-30) mmol/L Anion Gap mmol/L BUN (7-17) mg/dL Creatinine (0.52-1.04) mg/dL Est GFR (CKD-EPI)AfAm (>60 ml/min/1.73 sqM) Est GFR (CKD-EPI)NonAf (>60 ml/min/1.73 sqM) Glucose (74-99) mg/dL Calcium (8.4-10.2) mg/dL Magnesium (1.6-2.3) mg/dL Total Bilirubin (0.2-1.3) mg/dL AST (14-36) U/L ALT (4-34) U/L Alkaline Phosphatase (38-126) U/L Troponin I (0.000-0.034) ng/mL Total Protein (6.3-8.2) g/dL Albumin (3.5-5.0) g/dL Urine Color Light Yellow Urine Appearance Clear (Clear) Urine pH 7.0 (5.0-8.0) Ur Specific [place] 1.018 (1.001-1.035) Urine Protein 3+ H (Negative) Urine Glucose (UA) 4+ H (Negative) Urine Ketones Negative (Negative) Urine Blood Small H (Negative) Urine Nitrite Negative (Negative) Urine Bilirubin Negative (Negative) Urine Urobilinogen <2.0 (<2.0) mg/dL Ur Leukocyte Esterase Small H (Negative) Urine RBC 2 (0-5) /hpf Urine WBC 28 H (0-5) /hpf Ur Squamous Epith Cells 1 (0-4) /hpf Urine Mucus Rare H (None) /hpf Urine HCG, Qual Not Detected (Not Detectd) Acetone, Qual (Negative) Disposition <Epi Cote - Last Filed: 07/14/22 03:41> Is patient prescribed a controlled substance at d/c from ED?: No Time of Disposition: 06:55 <Polo Edward - Last Filed: 07/14/22 06:56> Clinical Impression: Vasovagal syncope, Hyperglycemia, Dehydration, UTI (urinary tract infection), Scalp hematoma Disposition: HOME SELF-CARE Condition: Good Instructions (If sedation given, give patient instructions): Diabetic Hyperglycemia (ED), Urinary Tract Infection in Women (ED), Syncope (ED), Hematoma (ED) Referrals: None,Stated [Primary Care Provider] - 1-2 days
[2022-07-14 04:07] LABS: Basophils # (A) 0.1 k/uL (0-0.2); Basophils % (A) 1 %; Eosinophils # (A) 1.1 k/uL (0-0.7); Eosinophils % (A) 8 %; HCT 40.3 % (34.0-46.0); HGB 12.9 gm/dL (11.4-16.0); Lymphocytes # (A) 2.9 k/uL (1.0-4.8); Lymphocytes % (A) 20 %; MCH 30.1 pg (25.0-35.0); MCHC 32.1 g/dL (31.0-37.0); MCV 93.9 fL (80.0-100.0); Mean Platelet Volume 7.8; Monocytes # (A) 0.5 k/uL (0-1.0); Monocytes % (A) 4 %; Neutrophils # (A) 9.5 k/uL (1.3-7.7); Neutrophils % (A) 67 %; Platelet Count 401 k/uL (150-450); RBC 4.29 m/uL (3.80-5.40); RDW 13.6 % (11.5-15.5); WBC 14.3 k/uL (3.8-10.6)
[2022-07-14 04:29] LABS: VBG PH 7.36 (7.31-7.41)
--- NOTE | 2022-07-14 04:30 | CT ---
EXAMINATION TYPE: CT facial bones wo con DATE OF EXAM: 07/14/2022 COMPARISON: HISTORY: Syncope/head injury/facial injury/neck pain after fall. CT DLP: 789 mGycm Automated exposure control for dose reduction was used. Images obtained from the bottom of the mandible to the top of the frontal sinuses with no contrast. Mandibular ring is intact. Zygomatic arches appear normal. Temporomandibular joints are intact. Nasal bone is intact. Orbital margins are intact. No retro-orbital mass. The globes are symmetric. There i s no evidence of orbital blowout fracture. Maxilla is intact. Soft tissues appear intact. IMPRESSION: Negative CT scan of the facial bones. No fracture.
--- NOTE | 2022-07-14 04:33 | XR ---
EXAMINATION TYPE: XR chest 1V portable DATE OF EXAM: 07/14/2022 COMPARISON: 10/14/2021 HISTORY: TECHNIQUE: FINDINGS: Heart and mediastinum are normal. Lungs are clear. Diaphragm is normal. Bony thorax appears normal. IMPRESSION: Normal chest. No change.
--- NOTE | 2022-07-14 04:40 | CT ---
EXAMINATION TYPE: CT brain maulik wo con DATE OF EXAM: 07/14/2022 COMPARISON: None HISTORY: Syncope/head injury/facial injury/neck pain after fall. CT DLP: 306.9 mGycm Automated exposure control for dose reduction was used. Images of the brain and cervical spine obtained with no contrast. Ventricles and sulci appear normal. There is no mass effect or midline shift. No sign of intracranial hemorrhage. Calvarium is intact. No evidence of cerebral edema. Sella turcica is normal. The cervical vertebra have normal spacing and alignment. Posterior elements are intact. Facet joints are intact. No compression fracture. Prevertebral soft tissues are intact. There is minor spurring an teriorly at C5-6. IMPRESSION: Negative CT scan of the brain. Negative CT scan cervical spine.
[2022-07-14 04:46] LABS: Appearance,Urine Clear (Clear); Bilirubin,Urine Negative (Negative); Blood,Urine Small (Negative); Color,Urine Light Yellow; Glucose,Urine (UA) 4+ (Negative); Ketones,Urine Negative (Negative); Leukocyte Esterase,Urine Small (Negative); Mucus,Urine Rare /hpf; Nitrite,Urine Negative (Negative); Protein,Urine 3+ (Negative); RBC,Urine 2 /hpf (0-5); Specific Gravity,Urine 1.018 (1.001-1.035); Squamous Epithelial Cell,Urine 1 /hpf (0-4); Urobilinogen,Urine <2.0 mg/dL (<2.0); WBC,Urine 28 /hpf (0-5)
[2022-07-14 05:08] LABS: ALT 29 U/L (4-34); AST 22 U/L (14-36); African American GFR (CKD) 54 (>60 ml/min/1.73 sqM); Albumin 3.1 g/dL (3.5-5.0); Alkaline Phosphatase 120 U/L (38-126); Anion Gap 8 mmol/L; Blood Urea Nitrogen 25 mg/dL (7-17); Calcium 8.7 mg/dL (8.4-10.2); Carbon Dioxide 23 mmol/L (22-30); Chloride 103 mmol/L (98-107); Glucose 372 mg/dL (74-99); Magnesium 1.8 mg/dL (1.6-2.3); Non-African American GFR(CKD) 47 (>60 ml/min/1.73 sqM); Potassium 3.7 mmol/L (3.5-5.1); Sodium 134 mmol/L (137-145); Total Bilirubin 0.2 mg/dL (0.2-1.3); Total Protein 5.7 g/dL (6.3-8.2)
[2022-07-14] MEDS ORDERED: cefTRIAXone IN SWFI 1,000 MG/10 ML SYRINGE IVP STA (06:40)
[2022-07-14] MEDS ORDERED: INSULIN REGULAR 100 UNIT/ML VIAL (IV) IV ONE (06:40)
[2022-07-14 07:57] VITALS: BP 151/99; PULSE 96
[2022-07-14 08:00] LABS: Glucose,Whole Blood 452 mg/dL (70-110)
== END 2022-07-14 08:02 | disposition home or self-care (01) ==
LOC: EC 03:11
DX: E10.65 Type 1 diabetes mellitus with hyperglycemia (principal); N39.0 Urinary tract infection, site not specified; E86.0 Dehydration; E10.43 Type 1 diabetes mellitus with diabetic autonomic (poly)neuropathy; K31.84 Gastroparesis; E10.40 Type 1 diabetes mellitus with diabetic neuropathy, unspecified; I10 Essential (primary) hypertension; F17.200 Nicotine dependence, unspecified, uncomplicated; Z88.6 Allergy status to analgesic agent; Z88.8 Allergy status to other drugs, medicaments and biological substances; Z88.5 Allergy status to narcotic agent; Z91.030 Bee allergy status
CPT/HCPCS: 99285 ×2; 96374 ×2; 36415; 93005; 80053; 82803; 82009; 83735; 84484; 85025; 81001; 81025; 87086; 71045; 72125; 70486; 70450; 96361; J0696

== ENCOUNTER 2023-07-29 14:39 | Emergency (ER) | payer OTHER ==
--- NOTE | 2023-07-29 15:32 | ED ---
General Adult HPI - General Stated complaint: dialysis center sent her Time Seen by Provider: 07/29/23 15:31 Source: patient, RN notes reviewed Mode of arrival: ambulatory Limitations: no limitations - History of Present Illness Initial comments: 33-year-old female presents emergency Department chief complaint of compilations from her dialysis catheter. She states she had clotting issues with her last she had to replace today and states that she was having dialysis when she became very symptomatic her blood pressure elevated she started having pain states that this pain free across her chest, head, neck region. Patient was sent over from for evaluation. - Related Data Home Medications Medication Instructions Recorded Confirmed Ergocalciferol [Vitamin D2 (1250 1,250 mcg PO Q7D 07/30/23 07/30/23 Mcg = 80109 Iu)] Insulin Aspart [NovoLOG Flexpen] See Protocol SQ AC-TID 07/30/23 07/30/23 Levothyroxine Sodium [Synthroid] 150 mcg PO DAILY 07/30/23 07/30/23 Magnesium Oxide [Mag-Ox] 400 mg PO DAILY 07/30/23 07/30/23 Sertraline [Zoloft] 50 mg PO HS 07/30/23 07/30/23 Sodium Bicarbonate Tab 650 mg PO BID 07/30/23 07/30/23 Torsemide [Demadex] 40 mg PO DAILY 07/30/23 07/30/23 carvediloL [Coreg] 12.5 mg PO BID 07/30/23 07/30/23 hydrALAZINE HCL [Apresoline] 50 mg PO TID 07/30/23 07/30/23 Allergies Allergy/AdvReac Type Severity Reaction Status Date / Time hydromorphone HCl Allergy Anaphylaxis Verified 07/30/23 09:23 [From Dilaudid] ibuprofen [From Motrin] Allergy Unknown Verified 07/30/23 09:23 propoxyphene Allergy Unknown Verified 07/30/23 09:23 [From Darvocet-N] tramadol Allergy Unknown Verified 07/30/23 09:23 venom-honey bee Allergy Unknown Verified 07/30/23 09:23 [bee venom (honey bee)] Review of Systems ROS Statement: Those systems with pertinent positive or pertinent negative responses have been documented in the HPI. ROS Other: All systems not noted in ROS Statement are negative. Past Medical History Past Medical History: Diabetes Mellitus, GERD/Reflux, Hypertension Additional Past Medical History / Comment(s): Neuropathy, epilepsy, gastroparesis, depression, anxiety History of Any Multi-Drug Resistant Organisms: C-DIFF Date of last positivie culture/infection: 2013 MDRO Source:: stool Past Surgical History: Adenoidectomy, Cholecystectomy, Orthopedic Surgery, Tonsillectomy Additional Past Surgical History / Comment(s): 2 KNEE SCOPES, EAR TUBES, additional left knee surgery related to fracture Past Anesthesia/Blood Transfusion Reactions: No Reported Reaction Past Psychological History: Anxiety Smoking Status: Current some day smoker Past Alcohol Use History: None Reported Past Drug Use History: Marijuana - Past Family History Father Family Medical History: Unable to Obtain Mother Family Medical History: No Reported History Grandfather Additional Family Medical History / Comment(s): Diabetes mellitus type 2 General Exam - General Exam Comments Initial Comments: Visual Physical Exam Vital signs reviewed General: Well-appearing, nontoxic, no acute distress. Head: Normocephalic, atraumatic Eyes: PERRLA, EOMI ENT: Airway patent Chest: Nonlabored breathing Skin: No visual rash, normal skin tone Neuro: Alert and oriented 3 Musculoskeletal: No gross abnormalities Course Vital Signs 07/29/23 16:24 Temperature 98.5 F Pulse Rate 104 H Respiratory 18 Rate Blood Pressure 153/99 O2 Sat by Pulse 98 Oximetry Medical Decision Making - Medical Decision Making I performed a quick note portion of this chart signed Lei Alvarez PA-C Patient left AGAINST MEDICAL ADVICE in the waiting room - Lab Data Result diagrams: 07/29/23 16:34 07/29/23 16:34 Lab Results 07/29/23 07/29/23 07/29/23 Range/Units 16:34 16:34 16:34 WBC 7.4 (3.8-10.6) k/uL RBC 3.77 L (3.80-5.40) m/uL Hgb 11.4 (11.4-16.0) gm/dL Hct 34.1 (34.0-46.0) % MCV 90.5 (80.0-100.0) fL MCH 30.2 (25.0-35.0) pg MCHC 33.4 (31.0-37.0) g/dL RDW 14.2 (11.5-15.5) % Plt Count 323 (150-450) k/uL MPV 7.7 Neutrophils % 58 % Lymphocytes % 29 % Monocytes % 4 % Eosinophils % 6 % Basophils % 1 % Neutrophils # 4.3 (1.3-7.7) k/uL Lymphocytes # 2.2 (1.0-4.8) k/uL Monocytes # 0.3 (0-1.0) k/uL Eosinophils # 0.4 (0-0.7) k/uL Basophils # 0.0 (0-0.2) k/uL PT 9.3 (9.0-12.0) sec INR 0.9 (<1.2) APTT 25.7 (22.0-30.0) sec Sodium 134 L (137-145) mmol/L Potassium 4.0 (3.5-5.1) mmol/L Chloride 103 (98-107) mmol/L Carbon Dioxide 27 (22-30) mmol/L Anion Gap 4 mmol/L BUN 26 H (7-17) mg/dL Creatinine 3.66 H (0.52-1.04) mg/dL Est GFR (CKD-EPI)AfAm 18 (>60 ml/min/1.73 sqM) Est GFR (CKD-EPI)NonAf 16 (>60 ml/min/1.73 sqM) Glucose 180 H (74-99) mg/dL Calcium 8.1 L (8.4-10.2) mg/dL Phosphorus 5.1 H (2.5-4.5) mg/dL Magnesium 1.7 (1.6-2.3) mg/dL Total Bilirubin 0.3 (0.2-1.3) mg/dL AST 30 (14-36) U/L ALT 23 (4-34) U/L Alkaline Phosphatase 87 (38-126) U/L Total Protein 5.4 L (6.3-8.2) g/dL Albumin 2.7 L (3.5-5.0) g/dL Lipase 346 H (23-300) U/L Disposition Clinical Impression: Dialysis catheter clot or failure Disposition: LEFT AGAINST MEDICAL ADVICE Referrals: Gucci Sullivan [Primary Care Provider] - 1-2 days
[2023-07-29 16:31] VITALS: BP 153/99; PULSE 104; RESP 18; TEMP 98.5
[2023-07-29 16:41] LABS: Basophils % (A) 1 %; Eosinophils # (A) 0.4 k/uL (0-0.7); Eosinophils % (A) 6 %; HCT 34.1 % (34.0-46.0); HGB 11.4 gm/dL (11.4-16.0); Lymphocytes # (A) 2.2 k/uL (1.0-4.8); Lymphocytes % (A) 29 %; MCH 30.2 pg (25.0-35.0); MCHC 33.4 g/dL (31.0-37.0); MCV 90.5 fL (80.0-100.0); Mean Platelet Volume 7.7; Monocytes # (A) 0.3 k/uL (0-1.0); Monocytes % (A) 4 %; Neutrophils # (A) 4.3 k/uL (1.3-7.7); Neutrophils % (A) 58 %; Platelet Count 323 k/uL (150-450); RBC 3.77 m/uL (3.80-5.40); RDW 14.2 % (11.5-15.5); WBC 7.4 k/uL (3.8-10.6)
[2023-07-29 16:55] LABS: INR 0.9 (<1.2); Partial Thromboplastin Time 25.7 sec (22.0-30.0); Prothrombin Time 9.3 sec (9.0-12.0)
[2023-07-29 17:03] LABS: ALT 23 U/L (4-34); AST 30 U/L (14-36); African American GFR (CKD) 18 (>60 ml/min/1.73 sqM); Albumin 2.7 g/dL (3.5-5.0); Alkaline Phosphatase 87 U/L (38-126); Anion Gap 4 mmol/L; Blood Urea Nitrogen 26 mg/dL (7-17); Calcium 8.1 mg/dL (8.4-10.2); Carbon Dioxide 27 mmol/L (22-30); Chloride 103 mmol/L (98-107); Glucose 180 mg/dL (74-99); Lipase 346 U/L (23-300); Magnesium 1.7 mg/dL (1.6-2.3); Non-African American GFR(CKD) 16 (>60 ml/min/1.73 sqM); Phosphorus 5.1 mg/dL (2.5-4.5); Sodium 134 mmol/L (137-145); Total Bilirubin 0.3 mg/dL (0.2-1.3); Total Protein 5.4 g/dL (6.3-8.2)
[2023-07-29] MEDS ORDERED: ALTEPLASE 59 MG in EMPTY BAG 1 BAG IV STA (23:45)
[2023-07-29] MEDS ORDERED: ALTEPLASE BOLUS 1 MG/1 ML SYRINGE IV ONE (23:45)
[2023-07-30] MEDS ORDERED: SODIUM CHLORIDE 0.9% 50 ML MINI-BAG IV ONE (00:47)
== END 2023-07-29 18:43 | disposition left against medical advice (07) ==
LOC: EC 14:39
DX: T85.611A Breakdown (mechanical) of intraperitoneal dialysis catheter, initial encounter (principal); E11.9 Type 2 diabetes mellitus without complications; I10 Essential (primary) hypertension; F41.9 Anxiety disorder, unspecified; F17.200 Nicotine dependence, unspecified, uncomplicated; F12.90 Cannabis use, unspecified, uncomplicated; Z79.4 Long term (current) use of insulin; Z79.899 Other long term (current) drug therapy; Z88.5 Allergy status to narcotic agent; Z91.030 Bee allergy status; Z88.6 Allergy status to analgesic agent; Z88.8 Allergy status to other drugs, medicaments and biological substances; Z90.49 Acquired absence of other specified parts of digestive tract; Z53.29 Procedure and treatment not carried out because of patient's decision for other reasons
CPT/HCPCS: 36415; 80053; 83690; 83735; 84100; 85025; 85610; 85730; 99283

== ENCOUNTER 2023-09-21 14:07 | Emergency (ER) | payer OTHER ==
[2023-09-21 14:28] LABS: Glucose,Whole Blood 116 mg/dL (70-110)
[2023-09-21 14:48] VITALS: TEMP 97.6
[2023-09-21] MEDS ORDERED: droPERidol 5 MG/2 ML VIAL IVP ONE (14:53)
--- NOTE | 2023-09-21 14:53 | ED ---
General Adult HPI - General Chief complaint: Weakness Stated complaint: weakness Time Seen by Provider: 09/21/23 14:25 Source: patient, EMS, RN notes reviewed, old records reviewed Mode of arrival: EMS Limitations: no limitations - History of Present Illness Initial comments: This is a 33-year-old female presents emergency Department stating she woke up this morning didn't feel that she had a mild headache. Patient states she went to go get dialysis and her dialysis and started feeling even worse and the headache was worse. Patient states she always gets headaches during dialysis and she states this headache is no different than any other. Patient states the next thing she remembers everybody was 196 she sort of went unresponsive for a few moments. Patient states she feels very tired now which is not atypical with her dialysis. Patient states she also has a headache she took Tylenol at noon doesn't want any NSAIDs or narcotics for the headache. Patient states she remains mildly nauseous. Patient denies any chest pain. Patient denies any shortness of breath or difficulty breathing. Patient denies any abdominal pain. Patient denies any back pain. Patient denies any numbness or weakness. - Related Data Home Medications Medication Instructions Recorded Confirmed Ergocalciferol [Vitamin D2 (1250 1,250 mcg PO Q7D 07/30/23 07/30/23 Mcg = 96752 Iu)] Insulin Aspart [NovoLOG Flexpen] See Protocol SQ AC-TID 07/30/23 07/30/23 Levothyroxine Sodium [Synthroid] 150 mcg PO DAILY 07/30/23 07/30/23 Magnesium Oxide [Mag-Ox] 400 mg PO DAILY 07/30/23 07/30/23 Sertraline [Zoloft] 50 mg PO HS 07/30/23 07/30/23 Sodium Bicarbonate Tab 650 mg PO BID 07/30/23 07/30/23 Torsemide [Demadex] 40 mg PO DAILY 07/30/23 07/30/23 carvediloL [Coreg] 12.5 mg PO BID 07/30/23 07/30/23 Previous Rx's Medication Instructions Recorded Aspirin 81 mg PO DAILY #30 tab 08/02/23 hydrALAZINE HCL [Apresoline] 100 mg PO TID 30 Days #180 tab 08/02/23 Allergies Allergy/AdvReac Type Severity Reaction Status Date / Time hydromorphone HCl Allergy Anaphylaxis Verified 09/21/23 14:31 [From Dilaudid] ibuprofen [From Motrin] Allergy Unknown Verified 09/21/23 14:31 propoxyphene Allergy Unknown Verified 09/21/23 14:31 [From Darvocet-N] tramadol Allergy Unknown Verified 09/21/23 14:31 venom-honey bee Allergy Unknown Verified 09/21/23 14:31 [bee venom (honey bee)] Review of Systems ROS Statement: Those systems with pertinent positive or pertinent negative responses have been documented in the HPI. ROS Other: All systems not noted in ROS Statement are negative. Past Medical History Past Medical History: Diabetes Mellitus, GERD/Reflux, Hypertension Additional Past Medical History / Comment(s): Neuropathy, epilepsy, gastroparesis, depression, anxiety. patient awaiting Kidney and Pancrease Transplant . unknown cardiac issues since having child. hx of diabetic seizures History of Any Multi-Drug Resistant Organisms: C-DIFF Date of last positivie culture/infection: 2013 MDRO Source:: stool Past Surgical History: Adenoidectomy, Cholecystectomy, Orthopedic Surgery, Tonsillectomy Additional Past Surgical History / Comment(s): 2 KNEE SCOPES, EAR TUBES, additional left knee surgery related to fracture, [place] a cath jul 29 Past Anesthesia/Blood Transfusion Reactions: No Reported Reaction Additional Past Anesthesia/Blood Transfusion Reaction / Comment(s): confusion, vomiting. Past Psychological History: Anxiety Smoking Status: Current some day smoker Past Alcohol Use History: None Reported Past Drug Use History: Marijuana - Past Family History Father Family Medical History: Unable to Obtain Mother Family Medical History: No Reported History Grandfather Additional Family Medical History / Comment(s): Diabetes mellitus type 2 General Exam - General Exam Comments Initial Comments: GENERAL: Patient is well-developed and well-nourished. Patient is nontoxic and well- hydrated and is in mild distress. ENT: Neck is soft and supple. No significant lymphadenopathy is noted. Oropharynx i s clear. Moist mucous membranes. Neck has full range of motion without eliciting any pain. EYES: The sclera were anicteric and conjunctiva were pink and moist. Extraocular movements were intact and pupils were equal round and reactive to light. Eyelids were unremarkable. PULMONARY: Unlabored respirations. Good breath sounds bilaterally. No audible rales rhonchi or wheezing was noted. CARDIOVASCULAR: There is a regular rate and rhythm without any murmurs gallops or rubs. ABDOMEN: Soft and nontender with normal bowel sounds. SKIN: Skin is clear with no lesions or rashes and otherwise unremarkable. NEUROLOGIC: Patient is alert and oriented x3. Cranial nerves II through XII are grossly intact. Motor and sensory are also intact. Normal speech, volume and content. Symmetrical smile. MUSCULOSKELETAL: Normal extremities with adequate strength and full range of motion. LYMPHATICS: No significant lymphadenopathy is noted PSYCHIATRIC: Normal psychiatric evaluation. Limitations: no limitations Course Vital Signs 09/21/23 09/21/23 14:10 15:45 Temperature 97.6 F Pulse Rate 90 87 Respiratory 18 20 Rate Blood Pressure 111/82 109/78 O2 Sat by Pulse 99 98 Oximetry Medical Decision Making - Medical Decision Making EKG is interpreted by myself. EKG shows a sinus rhythm at 90 bpm LA interval 226 QRS is 88 QT interval 372 QTC is 419. Patient's EKG shows no ST segment elevation or depression. Was pt. sent in by a medical professional or institution (Dr. PA, [employer], urgent care, hospital, or senior living...) When possible be specific @ -Patient was sent to us from the dialysis center Did you speak to anyone other than the patient for history (EMS, parent, family, police, friend...)? What history was obtained from this source @ -No Did you review nursing and triage notes (agree or disagree)? Why? @ -I reviewed and agree with nursing and triage notes Were old charts reviewed (outside hosp., previous admission, EMS record, old EKG, old radiological studies, urgent care reports/EKG's, senior living records)? Report findings @ -I reviewed prior charts and prior labwork on this patient Differential Diagnosis (chest pain, altered mental status, abdominal pain women, abdominal pain men, vaginal bleeding, weakness, fever, dyspnea, syncope, hea dache, dizziness, GI bleed, back pain, seizure, CVA, palpatations, mental health, musculoskeletal)? @ -Differential Syncope: Valvular disease, hypertrophic cardiomyopathy, pulmonary embolism, tamponade, tachycardia, bradycardia, SC, hypovolemia, hemorrhage, dissection, anemia, i ntracranial hemorrhage, seizure, hypoglycemia, carbon monoxide poisoning, this is not meant to be an all-inclusive list. EKG interpreted by me (3pts min.). @ -As above X-rays interpreted by me (1pt min.). @ -Chest x-ray shows no acute abnormality CT interpreted by me (1pt min.). @ -None done U/S interpreted by me (1pt. min.). @ -None done What testing was considered but not performed or refused? (CT, X-rays, U/S, labs)? Why? @ -None What meds were considered but not given or refused? Why? @ -None Did you discuss the management of the patient with other professionals (professionals i.e. DrKaterin, PA, [employer], lab, RT, psych nurse, public health social worker, county program technician, teacher, employment security officer, telephonic nurse case manager)? Give summary @ -I spoke with Dr. Lim about this patient for appropriate follow-up Was smoking cessation discussed for >3mins.? @ -No Was critical care preformed (if so, how long)? @ -No Were there social determinants of health that impacted care today? How? (Homelessness, low income, unemployed, alcoholism, drug addiction, transportation, low edu. Level, literacy, decrease access to med. care, [facility], rehab)? @ -No Was there de-escalation of care discussed even if they declined (Discuss DNR or withdrawal of care, Hospice)? DNR status @ -No What co-morbidities impacted this encounter? (DM, HTN, Smoking, COPD, CAD, Cancer, CVA, ARF, Chemo, Hep., AIDS, mental health diagnosis, sleep apnea, morbid obesity)? @ -None Was patient admitted / discharged? Hospital course, mention meds given and route, prescriptions, significant lab abnormalities, going to OR and other pertinent info. @ -Patient had lab work done it was relatively normal for her. Patient had droperidol for her headache and nausea. Patient fully considerably better when I went back in and went to different occasions she was sleeping and I awoke her she states she felt much better she felt good enough to go home. Undiagnosed new problem with uncertain prognosis? @ -No Drug Therapy requiring intensive monitoring for toxicity (Heparin, Nitro, Insulin, Cardizem)? @ -No Were any procedures done? @ -No Diagnosis/symptom? @ -Syncope Acute, or Chronic, or Acute on Chronic? @ -Acute Uncomplicated (without systemic symptoms) or Complicated (systemic symptoms)? @ -Complicated Side effects of treatment? @ -No Exacerbation, Progression, or Severe Exacerbation? @ -No Poses a threat to life or bodily function? How? (Chest pain, USA, SC, pneumonia, PE, COPD, DKA, ARF, appy, cholecystitis, CVA, Diverticulitis, Homicidal, Suicidal, threat to staff... and all critical care pts) @ -No Diagnosis/symptom? @ -Headache Acute, or Chronic, or Acute on Chronic? @ -Acute Uncomplicated (without systemic symptoms) or Complicated (systemic symptoms)? @ -Uncomplicated Side effects of treatment? @ -none Exacerbation, Progression, or Severe Exacerbation] @ -no Poses a threat to life or bodily function? @ -no - Lab Data Result diagrams: 09/21/23 14:55 09/21/23 14:55 Lab Results 09/21/23 09/21/23 09/21/23 Range/Units 14:27 14:55 14:55 WBC 12.6 H (3.8-10.6) k/uL RBC 3.70 L (3.80-5.40) m/uL Hgb 11.4 (11.4-16.0) gm/dL Hct 32.7 L (34.0-46.0) % MCV 88.4 (80.0-100.0) fL MCH 30.9 (25.0-35.0) pg MCHC 34.9 (31.0-37.0) g/dL RDW 14.0 (11.5-15.5) % Plt Count 450 (150-450) k/uL MPV 8.2 Neutrophils % 71 % Lymphocytes % 17 % Monocytes % 6 % Eosinophils % 5 % Basophils % 0 % Neutrophils # 8.9 H (1.3-7.7) k/uL Lymphocytes # 2.2 (1.0-4.8) k/uL Monocytes # 0.7 (0-1.0) k/uL Eosinophils # 0.6 (0-0.7) k/uL Basophils # 0.1 (0-0.2) k/uL Sodium 133 L (137-145) mmol/L Potassium 3.3 L (3.5-5.1) mmol/L Chloride 97 L (98-107) mmol/L Carbon Dioxide 29 (22-30) mmol/L Anion Gap 7 mmol/L BUN 22 H (7-17) mg/dL Creatinine 2.99 H (0.52-1.04) mg/dL Est GFR (CKD-EPI)AfAm 23 (>60 ml/min/1.73 sqM) Est GFR (CKD-EPI)NonAf 20 (>60 ml/min/1.73 sqM) Glucose 98 (74-99) mg/dL POC Glucose (mg/dL) 116 H (70-110) mg/dL POC Glu Peer Support Specialist ID Kathy Turner Calcium 8.5 (8.4-10.2) mg/dL Magnesium 1.8 (1.6-2.3) mg/dL Total Bilirubin 0.3 (0.2-1.3) mg/dL AST 38 H (14-36) U/L ALT 28 (4-34) U/L Alkaline Phosphatase 82 (38-126) U/L Total Protein 6.1 L (6.3-8.2) g/dL Albumin 3.2 L (3.5-5.0) g/dL Disposition Clinical Impression: Near syncope Disposition: HOME SELF-CARE Condition: Good Instructions (If sedation given, give patient instructions): Near Syncope (ED) Is patient prescribed a controlled substance at d/c from ED?: No Referrals: None,Stated [Primary Care Provider] - 1-2 days Time of Disposition: 16:11
[2023-09-21 15:03] LABS: Basophils # (A) 0.1 k/uL (0-0.2); Basophils % (A) 0 %; Eosinophils # (A) 0.6 k/uL (0-0.7); Eosinophils % (A) 5 %; HCT 32.7 % (34.0-46.0); HGB 11.4 gm/dL (11.4-16.0); Lymphocytes # (A) 2.2 k/uL (1.0-4.8); Lymphocytes % (A) 17 %; MCH 30.9 pg (25.0-35.0); MCHC 34.9 g/dL (31.0-37.0); MCV 88.4 fL (80.0-100.0); Mean Platelet Volume 8.2; Monocytes # (A) 0.7 k/uL (0-1.0); Monocytes % (A) 6 %; Neutrophils # (A) 8.9 k/uL (1.3-7.7); Neutrophils % (A) 71 %; Platelet Count 450 k/uL (150-450); WBC 12.6 k/uL (3.8-10.6)
[2023-09-21 15:20] LABS: ALT 28 U/L (4-34); AST 38 U/L (14-36); African American GFR (CKD) 23 (>60 ml/min/1.73 sqM); Albumin 3.2 g/dL (3.5-5.0); Alkaline Phosphatase 82 U/L (38-126); Anion Gap 7 mmol/L; Blood Urea Nitrogen 22 mg/dL (7-17); Calcium 8.5 mg/dL (8.4-10.2); Carbon Dioxide 29 mmol/L (22-30); Chloride 97 mmol/L (98-107); Glucose 98 mg/dL (74-99); Magnesium 1.8 mg/dL (1.6-2.3); Non-African American GFR(CKD) 20 (>60 ml/min/1.73 sqM); Potassium 3.3 mmol/L (3.5-5.1); Sodium 133 mmol/L (137-145); Total Bilirubin 0.3 mg/dL (0.2-1.3); Total Protein 6.1 g/dL (6.3-8.2)
--- NOTE | 2023-09-21 15:35 | XR ---
EXAMINATION TYPE: XR chest 2V DATE OF EXAM: 09/21/2023 3:30 PM COMPARISON: Chest radiographs from 07/29/2023 TECHNIQUE: XR chest 2V Frontal and lateral views of the chest. CLINICAL INDICATION:Female, 33 years old with history of Difficulty breathing ; FINDINGS: Lungs/Pleura: There is no evidence of pleural effusion, focal consolidation, or pneumothorax. Pulmonary vascularity: Unremarkable. Heart/mediastinum: Cardiomediastinal silhouette is prominent in size. Musculoskeletal: No acute osseous pathology. Other findings: None Lines/Tubes: Right IJ central venous catheter identified with distal tip terminating in the right atrium. IMPRESSION: No acute cardiopulmonary disease/process.
[2023-09-21 16:01] VITALS: RESP 20
[2023-09-21 17:18] LABS: Glucose,Whole Blood 55 mg/dL (70-110)
[2023-09-21 17:43] LABS: Glucose,Whole Blood 82 mg/dL (70-110)
[2023-09-21 18:10] LABS: Glucose,Whole Blood 105 mg/dL (70-110)
[2023-09-21 18:33] VITALS: BP 129/96; PULSE 95
== END 2023-09-21 18:21 | disposition home or self-care (01) ==
LOC: EC 14:07
DX: R55 Syncope and collapse (principal); E11.10 Type 2 diabetes mellitus with ketoacidosis without coma; E11.40 Type 2 diabetes mellitus with diabetic neuropathy, unspecified; I10 Essential (primary) hypertension; F41.9 Anxiety disorder, unspecified; F17.200 Nicotine dependence, unspecified, uncomplicated; F12.90 Cannabis use, unspecified, uncomplicated; Z88.5 Allergy status to narcotic agent; Z88.6 Allergy status to analgesic agent; Z88.8 Allergy status to other drugs, medicaments and biological substances; Z91.030 Bee allergy status; Z79.4 Long term (current) use of insulin; Z79.899 Other long term (current) drug therapy
CPT/HCPCS: 36415; 93005; 80053; 83735; 85025; 71046; 99285; 96374; J1790

== ENCOUNTER 2023-10-25 07:08 | Day surgery (SDC) | payer OTHER ==
[2023-10-22 08:57] VITALS: BMI 24.3
[~2023-10-25 07:08] MED LIST: ACETAMINOPHEN TAB 500 MG TAB PO PRN; HEPARIN SODIUM,PORCINE/PF 5,000 UNIT/0.5 ML SYRINGE SQ PRN
[2023-10-25] MEDS ORDERED: fentaNYL (PF) 50 MCG/ML 2 ML AMP IV PRN (07:25)
[2023-10-25] MEDS ORDERED: ONDANSETRON 4 MG/2 ML VIAL IVP ONE (07:25)
[2023-10-25] MEDS ORDERED: LACTATED RINGERS 1,000 ML IV SCH (07:25)
[2023-10-25] MEDS ORDERED: LIDOCAINE 1% (10MG/ML) FOR IV START INTRADERMA PRN (07:25)
[2023-10-25 08:03] LABS: Glucose,Whole Blood 282 mg/dL (70-110)
[2023-10-25] MEDS ORDERED: INSULIN ASPART (NovoLOG) 100 UNIT/ML VIAL SQ ONE (08:07)
[2023-10-25 08:15] LABS: Basophils # (A) 0.1 k/uL (0-0.2); Basophils % (A) 1 %; Eosinophils # (A) 0.6 k/uL (0-0.7); Eosinophils % (A) 6 %; HCT 29.3 % (34.0-46.0); Lymphocytes # (A) 1.9 k/uL (1.0-4.8); Lymphocytes % (A) 21 %; MCH 30.8 pg (25.0-35.0); MCHC 32.7 g/dL (31.0-37.0); Mean Platelet Volume 7.9; Monocytes # (A) 0.5 k/uL (0-1.0); Monocytes % (A) 6 %; Neutrophils # (A) 6.1 k/uL (1.3-7.7); Neutrophils % (A) 65 %; Platelet Count 301 k/uL (150-450); RBC 3.11 m/uL (3.80-5.40); RDW 14.6 % (11.5-15.5); WBC 9.3 k/uL (3.8-10.6)
[2023-10-25 08:18] LABS: HGB 9.6 gm/dL (11.4-16.0)
[2023-10-25 08:21] LABS: ALT 22 U/L (4-34); AST 27 U/L (14-36); African American GFR (CKD) 7 (>60 ml/min/1.73 sqM); Albumin 2.6 g/dL (3.5-5.0); Alkaline Phosphatase 58 U/L (38-126); Anion Gap 13 mmol/L; Blood Urea Nitrogen 59 mg/dL (7-17); Calcium 7.3 mg/dL (8.4-10.2); Carbon Dioxide 18 mmol/L (22-30); Chloride 102 mmol/L (98-107); Glucose 261 mg/dL (74-99); Non-African American GFR(CKD) 6 (>60 ml/min/1.73 sqM); Potassium 4.6 mmol/L (3.5-5.1); Sodium 133 mmol/L (137-145); Total Bilirubin 0.4 mg/dL (0.2-1.3)
[2023-10-25] MEDS ORDERED: fentaNYL (PF) 50 MCG/ML 2 ML AMP ONE (09:12)
[2023-10-25] MEDS ORDERED: PROPOFOL 10 MG/ML 20 ML VIAL IV ONE (09:12)
[2023-10-25] MEDS ORDERED: MIDAZOLAM 2 MG/2 ML VIAL ONE (09:12)
[2023-10-25] MEDS ORDERED: METOPROLOL TARTRATE 5 MG/5 ML VIAL IVP ONE (09:12)
[2023-10-25] MEDS ORDERED: LIDOCAINE 1% INJ 10MG/ML (20 ML MDV) ONE (09:12)
[2023-10-25] MEDS ORDERED: BUPIVACAINE (PF) 0.25% 30 ML VIAL SQ ONE ×2 (09:31)
[2023-10-25] MEDS ORDERED: HYDROcodone/APAP 5-325MG 1 EACH TAB PO PRN (10:08)
[2023-10-25] MEDS ORDERED: NALOXONE 0.4 MG/ML 1 ML VIAL IV PRN (10:08)
--- NOTE | 2023-10-25 10:11 | P.OP ---
Date of Procedure: 10/25/23 Procedure(s) Performed: PREOPERATIVE DIAGNOSIS: Renal failure POSTOPERATIVE DIAGNOSIS: Same PROCEDURE: Peritoneal dialysis catheter insertion SURGEON: Fausto EBL: Minimal ANESTHESIA: General COMPLICATIONS: None OPERATIVE PROCEDURE: The patient was placed in the operative table in the supine position. The abdomen was prepped and draped in usual sterile fashion. A small vertical incision was made in the left periumbilical location. Dissection down through the subcutaneous tissues took place using electrocautery. The anterior rectus was divided vertically using the scalpel. The rectus was bluntly. The posterior rectus was visualized. An 0 Vicryl pursestring was placed. A small opening in the posterior rectus fascia and peritoneum took place using a Metzenbaum scissors. There were no adhesions to the suture that was placed. The pigtail catheter was advanced into the pelvis over a stylette. No resistance was met. The inner cuff was secured to the fascia using the 0 Vicryl pursestring that was placed. The catheter was tunneled to an exit site in the right lateral lower quadrant. The catheter was connected to the 1 L bag of saline and approximated 800 mL of saline was easily introduced into the peritoneal cavity. The fluid was then allowed to evacuate. The majority of the fluid was returned. The anterior rectus fascia was then reapproximated using a running 0 Vicryl stitch. The subcutaneous tissues reprepped using 3-0 Vicryl sutures and the skin using 4-0 Monocryl sutures. The outpatient dialysis adapter was applied to the end of the catheter. Sterile dressings were then applied after skin glue was placed over the incision. DISPOSITION: Stable to recovery room
[2023-10-25 10:25] LABS: Glucose,Whole Blood 178 mg/dL (70-110)
[2023-10-25 10:38] VITALS: TEMP 97.5
[2023-10-25 11:02] VITALS: RESP 18
[2023-10-25 11:28] VITALS: BP 144/88; PULSE 83
== END 2023-10-25 11:44 | disposition home or self-care (01) ==
LOC: OR 07:08
PROVIDERS: ATTEND Surgery
DX: N19 Unspecified kidney failure (principal); I10 Essential (primary) hypertension; F17.210 Nicotine dependence, cigarettes, uncomplicated; E11.9 Type 2 diabetes mellitus without complications; K21.9 Gastro-esophageal reflux disease without esophagitis; F41.9 Anxiety disorder, unspecified; F32.A Depression, unspecified; Z79.84 Long term (current) use of oral hypoglycemic drugs; Z79.82 Long term (current) use of aspirin; Z79.899 Other long term (current) drug therapy; Z79.4 Long term (current) use of insulin; Z88.5 Allergy status to narcotic agent; Z88.8 Allergy status to other drugs, medicaments and biological substances; Z88.6 Allergy status to analgesic agent; Z90.49 Acquired absence of other specified parts of digestive tract; Z98.890 Other specified postprocedural states
CPT/HCPCS: 49421; 81025; 80053; 85025; J2250; J0690; J2405; J2001; J3010; J2704; J1644; J0665

== ENCOUNTER 2023-12-27 03:06 | Inpatient (IN) | payer OTHER ==
[2023-12-27] MEDS: NITROGLYCERIN-D5W PMX 50 MG in DEXTROSE/WATER 1 250ML.BAG IV STA (03:16)
[2023-12-27] MEDS: ONDANSETRON 4 MG/2 ML VIAL IVP STA (03:27)
[2023-12-27] MEDS: FUROSEMIDE 10 MG/ML 4 ML VIAL IV STA ×2 (03:27→04:14)
[2023-12-27] MEDS: MORPHINE SULFATE 4 MG/ML SYRINGE IVP STA (03:28)
[2023-12-27 03:54] LABS: HCT 25.9 % (34.0-46.0); HGB 8.2 gm/dL (11.4-16.0); MCH 30.5 pg (25.0-35.0); MCHC 31.8 g/dL (31.0-37.0); MCV 95.9 fL (80.0-100.0); Mean Platelet Volume 8.3; Platelet Count 342 k/uL (150-450); RDW 14.9 % (11.5-15.5); WBC 30.9 k/uL (3.8-10.6)
--- NOTE | 2023-12-27 03:54 | ED ---
SOB HPI - General Chief Complaint: Shortness of Breath Stated Complaint: Respiratory Distress Time Seen by Provider: 12/27/23 03:08 Source: EMS Mode of arrival: EMS Limitations: physical limitation (Severe dyspnea) - History of Present Illness Initial Comments: This patient is a 33-year-old woman with history of diabetes and kidney failure, on hemodialysis, who presents for acute onset of shortness of breath. History is limited as the patient is very dyspneic. She reports that she admitted [facility] and was released yesterday. Over the course tonight she became very short of breath. She has chest pain, substernal. There is cough and nausea. MD Complaint: shortness of breath, chest pain -: hour(s) Severity scale (1-10): 0 Improves With: upright position Worsens With: lying flat Known History Of: diabetes, other (Kidney failure) Associated Symptoms: chest pain Treatments Prior to Arrival: oxygen, nitroglycerin - Related Data Home Oxygen Therapy: No Home Medications Medication Instructions Recorded Confirmed Insulin Glargine,Hum.rec.anlog 25 units SQ DAILY@1330 10/22/23 12/27/23 [Lantus Solostar Pen] Levothyroxine Sodium [Synthroid] 175 mcg PO DAILY 10/22/23 12/27/23 Sertraline [Zoloft] 200 mg PO DAILY 10/22/23 12/27/23 Atorvastatin [Lipitor] 40 mg PO HS 12/27/23 12/27/23 Clopidogrel [Plavix] 75 mg PO DAILY 12/27/23 12/27/23 Divalproex ER [Depakote ER] 500 mg PO BID 12/27/23 12/27/23 INSULIN LISPRO (humaLOG) [humaLOG] See Protocol SQ AC-TID PRN 12/27/23 12/27/23 Lidocaine 5% Patch [Lidoderm] 1 patch TOPICAL BID 12/27/23 12/27/23 NIFEdipine [Adalat CC] 60 mg PO DAILY 12/27/23 12/27/23 Ondansetron [Zofran] 4 mg PO Q8HR PRN 12/27/23 12/27/23 Pantoprazole [Protonix] 40 mg PO DAILY 12/27/23 12/27/23 Augustine Caps 1 cap PO HS 12/27/23 12/27/23 Sulfamethox-Tmp 800-160Mg [Bactrim 1 tab PO DAILY 12/27/23 12/27/23 DS 800-160 mg] carvediloL [Coreg] 25 mg PO BID 12/27/23 12/27/23 hydrALAZINE HCL [Apresoline] 100 mg PO TID 12/27/23 12/27/23 methocarbamoL [Robaxin-750] 750 mg PO QID 12/27/23 12/27/23 Previous Rx's Medication Instructions Recorded Aspirin 81 mg PO DAILY #30 tab 08/02/23 HYDROcodone/APAP 5-325MG [[place] 1 tab PO Q6HR PRN 3 Days #12 tab 10/25/23 5-325] Allergies Allergy/AdvReac Type Severity Reaction Status Date / Time hydromorphone HCl Allergy Anaphylaxis Verified 12/27/23 08:39 [From Dilaudid] ibuprofen [From Motrin] Allergy unable to Verified 12/27/23 08:39 take due to kidney disease morphine Allergy Nausea & Verified 12/27/23 08:39 Vomiting propoxyphene Allergy Rash/Hives Verified 12/27/23 08:39 [From Darvocet-N] tramadol Allergy Anaphylaxis Verified 12/27/23 08:39 venom-honey bee Allergy passes out Verified 12/27/23 08:39 [bee venom (honey bee)] Review of Systems ROS Statement: Those systems with pertinent positive or pertinent negative responses have been documented in the HPI. ROS Other: All systems not noted in ROS Statement are negative. Limitations: ROS unobtainable due to patients medical condition Constitutional: Denies: fever Respiratory: Reports: cough, dyspnea Cardiovascular: Reports: chest pain Gastrointestinal: Reports: nausea Genitourinary: Denies: dysuria Neurological: Denies: headache Psychiatric: Reports: anxiety Past Medical History Past Medical History: Diabetes Mellitus, GERD/Reflux, Hypertension, Renal Disease, Seizure Disorder, Thyroid Disorder Additional Past Medical History / Comment(s): Neuropathy, last seizure 2020, gastroparesis, headaches with dialysis, states "fast heart rate" since giving b irth., receives Hemodialysis Wednesday- and Saturdays at [facility] [place]., right chest hemodialysis catheter., severe HTN. patient awaiting Kidney and Pancrease Transplant. , states sometimes she has had stroke -like symptoms but no stroke., hx of c-diff 2013. History of Any Multi-Drug Resistant Organisms: None Reported Date of last positivie culture/infection: 2013 MDRO Source:: stool Past Surgical History: Adenoidectomy, Section, Cholecystectomy, Orthopedic Surgery, Tonsillectomy Additional Past Surgical History / Comment(s): 2 KNEE SCOPES, EAR TUBES, additional left knee surgery related to fracture, new port a cath sept , eye surgeries for diabetic retinopathy. Past Anesthesia/Blood Transfusion Reactions: Previous Problems w/ Anesthesia Additional Past Anesthesia/Blood Transfusion Reaction / Comment(s): confusion Past Psychological History: Anxiety, Depression Smoking Status: Former smoker Past Alcohol Use History: None Reported Past Drug Use History: Marijuana, Methamphetamine - Past Family History Father Family Medical History: Unable to Obtain Mother Family Medical History: No Reported History Grandfather Additional Family Medical History / Comment(s): Diabetes mellitus type 2 General Exam General appearance: alert, in distress Head exam: Present: atraumatic, normocephalic Eye exam: Present: normal appearance. Absent: scleral icterus, conjunctival injection ENT exam: Present: other (Conjunctival pallor) Neck exam: Present: normal inspection Respiratory exam: Present: respiratory distress, rales, rhonchi. Absent: wheezes, stridor, accessory muscle use Cardiovascular Exam: Present: normal rhythm, tachycardia, systolic murmur. Absent: diastolic murmur, rubs, gallop GI/Abdominal exam: Present: soft. Absent: distended, tenderness, guarding, rebound, rigid Extremities exam: Present: normal inspection, normal capillary refill, pedal edema. Absent: calf tenderness Back exam: Present: normal inspection Neurological exam: Present: alert Psychiatric exam: Present: anxious Skin exam: Present: warm, dry, intact, pallor Course Vital Signs 12/27/23 12/27/23 12/27/23 03:08 03:11 03:32 Temperature 97.6 F Pulse Rate 131 H 122 H Pulse Rate [ Dry Kiln Operator Helper ] Respiratory 18 30 H Rate Blood Pressure 209/139 170/122 Blood Pressure [Left Arm] O2 Sat by Pulse 100 100 Oximetry Fraction of 100 Inspired Oxygen (FIO2) 12/27/23 12/27/23 12/27/23 03:36 03:40 03:42 Temperature Pulse Rate 118 H 117 H Pulse Rate [ Dry Kiln Operator Helper ] Respiratory 28 H 23 36 H Rate Blood Pressure 154/110 174/105 Blood Pressure [Left Arm] O2 Sat by Pulse 100 100 Oximetry Fraction of Inspired Oxygen (FIO2) 12/27/23 12/27/23 12/27/23 03:50 04:07 04:14 Temperature Pulse Rate 110 H 107 H Pulse Rate [ Dry Kiln Operator Helper ] Respiratory 27 H 22 Rate Blood Pressure 161/106 172/107 Blood Pressure [Left Arm] O2 Sat by Pulse 100 99 Oximetry Fraction of 60 Inspired Oxygen (FIO2) 12/27/23 12/27/23 12/27/23 04:17 04:30 04:39 Temperature Pulse Rate 102 H 98 98 Pulse Rate [ Dry Kiln Operator Helper ] Respiratory 20 20 20 Rate Blood Pressure 170/99 176/96 179/99 Blood Pressure [Left Arm] O2 Sat by Pulse 99 99 100 Oximetry Fraction of Inspired Oxygen (FIO2) 12/27/23 12/27/23 12/27/23 04:45 05:00 05:30 Temperature Pulse Rate 92 91 92 Pulse Rate [ Dry Kiln Operator Helper ] Respiratory 20 20 22 Rate Blood Pressure 166/94 164/94 147/88 Blood Pressure [Left Arm] O2 Sat by Pulse 99 99 99 Oximetry Fraction of Inspired Oxygen (FIO2) 12/27/23 12/27/23 12/27/23 06:00 06:30 07:46 Temperature Pulse Rate 102 H 93 96 Pulse Rate [ Dry Kiln Operator Helper ] Respiratory 22 20 18 Rate Blood Pressure 151/85 139/82 146/91 Blood Pressure [Left Arm] O2 Sat by Pulse 100 100 98 Oximetry Fraction of Inspired Oxygen (FIO2) 12/27/23 12/27/23 12/27/23 07:55 10:38 11:30 Temperature 98 F Pulse Rate 85 85 Pulse Rate [ Dry Kiln Operator Helper ] Respiratory 20 18 Rate Blood Pressure 135/89 148/91 Blood Pressure [Left Arm] O2 Sat by Pulse 99 98 Oximetry Fraction of 60 Inspired Oxygen (FIO2) 12/27/23 12/27/23 12/27/23 12:28 13:31 14:59 Temperature 98 F Pulse Rate 95 98 Pulse Rate [ 85 Dry Kiln Operator Helper ] Respiratory 18 16 16 Rate Blood Pressure 115/65 111/63 Blood Pressure 148/90 [Left Arm] O2 Sat by Pulse 96 97 Oximetry Fraction of Inspired Oxygen (FIO2) - Reevaluation(s) Reevaluation #1: 12/27/23 04:30 Case discussed with nephrology and stat dialysis will be arranged Reevaluation #2: 12/27/23 06:05 I did discuss the case with the [facility] transfer line, and at this point they are not accepting patient for transfer Medical Decision Making - Medical Decision Making This patient is a 33-year-old woman with end-stage renal disease on hemodialysis, presenting with severe dyspnea. The patient also markedly hypertensive. The patient is placed on BiPAP and administered IV nitroglycerin. The case is discussed with boilermaker loftsman and the patient is to have urgent dialysis. I was at the bedside for prolonged period, administering nitroglycerin and following patient's blood pressure until she began to demonstrate clinical improvement in her vital signs and respiratory status Case discussed with patient and her mother. They requested to see if she would be excepted to [facility] to have intake into the transplant program. I discussed the case transfer line and the patient is currently too unstable for ambulance transport. The patient will be admitted here to on-call as the patient's mother states she has no primary physician only seeing specialists. Patient had chest x-ray which I interpreted as showing presence of pulmonary edema Was pt. sent in by a medical professional or institution (, [facility], [facility], urgent care, hospital, or long term...) When possible be specific @ -[No] Did you speak to anyone other than the patient for history (EMS, parent, family, police, friend...)? What history was obtained from this source @ -[Case discussed with EMS and also with the patient's mother who provided history Did you review nursing and triage notes (agree or disagree)? Why? @ -[I reviewed and agree with nursing and triage notes] Were old charts reviewed (outside hosp., previous admission, EMS record, old EKG, old radiological studies, urgent care reports/EKG's, long term records)? Report findings @ -[Yes, old charts were reviewed] Differential Diagnosis (chest pain, altered mental status, abdominal pain women, abdominal pain men, vaginal bleeding, weakness, fever, dyspnea, syncope, headache, dizziness, GI bleed, back pain, seizure, CVA, palpatations, mental health, musculoskeletal)? @ -Differential Dyspnea: Coronary syndrome, arrhythmia, tamponade, asthma, COPD, pulmonary embolism, pneumonia, pneumothorax, pulmonary effusion, anaphylaxis, diabetic ketoacidosis, flailed chest, pulmonary contusion, diaphragmatic rupture, anemia, neuromu scular, this is not meant to be an all-inclusive list. EKG interpreted by me (3pts min.). @ -I interpreted as above] X-rays interpreted by me (1pt min.). @ -[The patient had chest x-ray which I interpreted as above CT interpreted by me (1pt min.). @ -[None done] U/S interpreted by me (1pt. min.). @ -[None done] What testing was considered but not performed or refused? (CT, X-rays, U/S, labs)? Why? @ -[None] What meds were considered but not given or refused? Why? @ -[None] Did you discuss the management of the patient with other professionals (professionals i.e. , PA, [facility], lab, RT, psych nurse, social media content specialist, groundskeeping maintenance, teacher, army officer, gearcase assembler)? Give summary @ -[Discussed the case with the admitting physician and also with the boilermaker loftsman, and treatment recommendations are incorporated. Was smoking cessation discussed for >3mins.? @ -[No] Was critical care preformed (if so, how long)? @ -[Yes 45 minutes Were there social determinants of health that impacted care today? How? (Homelessness, low income, unemployed, alcoholism, drug addiction, transportation, low edu. Level, literacy, decrease access to med. care, [facility], rehab)? @ -[No] Was there de-escalation of care discussed even if they declined (Discuss DNR or withdrawal of care, Hospice)? DNR status @ -[No] What co-morbidities impacted this encounter? (DM, HTN, Smoking, COPD, CAD, Cancer, CVA, ARF, Chemo, Hep., AIDS, mental health diagnosis, sleep apnea, morbid obesity)? @ -[Diabetes, hypertension, end-stage renal disease Was patient admitted / discharged? Hospital course, mention meds given and route, prescriptions, significant lab abnormalities, going to OR and other pertinent info. @ -[The patient is admitted, see the above notes Undiagnosed new problem with uncertain prognosis? @ -[No] Drug Therapy requiring intensive monitoring for toxicity (Heparin, Nitro, Insulin, Cardizem)? @ -[IV nitroglycerin drip Were any procedures done? @ -[No] Diagnosis/symptom? @ -[Acute pulmonary edema Hypertensive emergency End-stage renal disease on hemodialysis Hyperkalemia, acute Acute, or Chronic, or Acute on Chronic? @ -[Acute Uncomplicated (without systemic symptoms) or Complicated (systemic symptoms)? @ -[Complicated by severe dyspnea Side effects of treatment? @ -[No] Exacerbation, Progression, or Severe Exacerbation? @ -[No] Poses a threat to life or bodily function? How? (Chest pain, USA, NM, pneumonia, PE, COPD, DKA, ARF, appy, cholecystitis, CVA, Diverticulitis, Homicidal, Suicidal, threat to staff... and all critical care pts) @ -[Yes there is a threat to life, if not promptly treated the patient would experience respiratory failure and - Lab Data Result diagrams: 12/27/23 03:46 12/27/23 15:52 Lab Results 12/27/23 12/27/23 12/27/23 Range/Units 03:44 03:46 03:46 WBC 30.9 H (3.8-10.6) k/uL RBC 2.70 L (3.80-5.40) m/uL Hgb 8.2 L (11.4-16.0) gm/dL Hct 25.9 L (34.0-46.0) % MCV 95.9 (80.0-100.0) fL MCH 30.5 (25.0-35.0) pg MCHC 31.8 (31.0-37.0) g/dL RDW 14.9 (11.5-15.5) % Plt Count 342 (150-450) k/uL MPV 8.3 Neutrophils % (Manual) 88 % Lymphocytes % (Manual) 6 % Monocytes % (Manual) 5 % Eosinophils % (Manual) 1 % Neutrophils # (Manual) 27.19 H (1.3-7.7) k/uL Lymphocytes # (Manual) 1.85 (1.0-4.8) k/uL Monocytes # (Manual) 1.55 H (0-1.0) k/uL Eosinophils # (Manual) 0.31 (0-0.7) k/uL Nucleated RBCs 0 (0-0) /100 WBC Manual Slide Review Performed PT (10.0-12.5) sec INR (<1.2) APTT (22.0-30.0) sec VBG pH (7.31-7.41) VBG pCO2 (37-51) mmHg VBG HCO3 (24-28) mmol/L Sodium 135 L (137-145) mmol/L Potassium 6.3 H* (3.5-5.1) mmol/L Chloride 104 (98-107) mmol/L Carbon Dioxide 25 (22-30) mmol/L Anion Gap 6 mmol/L BUN 71 H (7-17) mg/dL Creatinine 6.93 H (0.52-1.04) mg/dL Est GFR (CKD-EPI)AfAm 8 (>60 ml/min/1.73 sqM) Est GFR (CKD-EPI)NonAf 7 (>60 ml/min/1.73 sqM) Glucose 100 H (74-99) mg/dL Plasma Lactic Acid Christopher (0.7-2.0) mmol/L Calcium 8.5 (8.4-10.2) mg/dL Iron (50-170) UG/DL TIBC (228-460) UG/DL % Saturation (12.00-45.00) Transferrin (204.0-354.0) mg/dL Ferritin (10.0-291.0) ng/mL Total Bilirubin 0.7 (0.2-1.3) mg/dL AST 44 H (14-36) U/L ALT 29 (4-34) U/L Alkaline Phosphatase 93 (38-126) U/L Troponin I (0.000-0.034) ng/mL NT-Pro-B Natriuret Pep 83651 pg/mL Total Protein 5.7 L (6.3-8.2) g/dL Albumin 3.1 L (3.5-5.0) g/dL Procalcitonin (0.02-0.09) ng/mL Influenza Type A (PCR) Not Detected (Not Detectd) Influenza Type B (PCR) Not Detected (Not Detectd) RSV (PCR) Not Detected (Not Detectd) SARS-CoV-2 (PCR) Not Detected (Not Detectd) 12/27/23 12/27/23 12/27/23 Range/Units 03:46 03:46 03:46 WBC (3.8-10.6) k/uL RBC (3.80-5.40) m/uL Hgb (11.4-16.0) gm/dL Hct (34.0-46.0) % MCV (80.0-100.0) fL MCH (25.0-35.0) pg MCHC (31.0-37.0) g/dL RDW (11.5-15.5) % Plt Count (150-450) k/uL MPV Neutrophils % (Manual) % Lymphocytes % (Manual) % Monocytes % (Manual) % Eosinophils % (Manual) % Neutrophils # (Manual) (1.3-7.7) k/uL Lymphocytes # (Manual) (1.0-4.8) k/uL Monocytes # (Manual) (0-1.0) k/uL Eosinophils # (Manual) (0-0.7) k/uL Nucleated RBCs (0-0) /100 WBC Manual Slide Review PT (10.0-12.5) sec INR (<1.2) APTT (22.0-30.0) sec VBG pH (7.31-7.41) VBG pCO2 (37-51) mmHg VBG HCO3 (24-28) mmol/L Sodium (137-145) mmol/L Potassium (3.5-5.1) mmol/L Chloride (98-107) mmol/L Carbon Dioxide (22-30) mmol/L Anion Gap mmol/L BUN (7-17) mg/dL Creatinine (0.52-1.04) mg/dL Est GFR (CKD-EPI)AfAm (>60 ml/min/1.73 sqM) Est GFR (CKD-EPI)NonAf (>60 ml/min/1.73 sqM) Glucose (74-99) mg/dL Plasma Lactic Acid Christopher 0.9 (0.7-2.0) mmol/L Calcium (8.4-10.2) mg/dL Iron (50-170) UG/DL TIBC (228-460) UG/DL % Saturation (12.00-45.00) Transferrin (204.0-354.0) mg/dL Ferritin (10.0-291.0) ng/mL Total Bilirubin (0.2-1.3) mg/dL AST (14-36) U/L ALT (4-34) U/L Alkaline Phosphatase (38-126) U/L Troponin I <0.012 (0.000-0.034) ng/mL NT-Pro-B Natriuret Pep pg/mL Total Protein (6.3-8.2) g/dL Albumin (3.5-5.0) g/dL Procalcitonin 0.23 H (0.02-0.09) ng/mL Influenza Type A (PCR) (Not Detectd) Influenza Type B (PCR) (Not Detectd) RSV (PCR) (Not Detectd) SARS-CoV-2 (PCR) (Not Detectd) 12/27/23 12/27/23 12/27/23 Range/Units 03:46 04:06 04:21 WBC (3.8-10.6) k/uL RBC (3.80-5.40) m/uL Hgb (11.4-16.0) gm/dL Hct (34.0-46.0) % MCV (80.0-100.0) fL MCH (25.0-35.0) pg MCHC (31.0-37.0) g/dL RDW (11.5-15.5) % Plt Count (150-450) k/uL MPV Neutrophils % (Manual) % Lymphocytes % (Manual) % Monocytes % (Manual) % Eosinophils % (Manual) % Neutrophils # (Manual) (1.3-7.7) k/uL Lymphocytes # (Manual) (1.0-4.8) k/uL Monocytes # (Manual) (0-1.0) k/uL Eosinophils # (Manual) (0-0.7) k/uL Nucleated RBCs (0-0) /100 WBC Manual Slide Review PT 10.3 (10.0-12.5) sec INR 0.9 (<1.2) APTT 23.1 (22.0-30.0) sec VBG pH 7.48 H (7.31-7.41) VBG pCO2 33 L (37-51) mmHg VBG HCO3 25 (24-28) mmol/L Sodium (137-145) mmol/L Potassium (3.5-5.1) mmol/L Chloride (98-107) mmol/L Carbon Dioxide (22-30) mmol/L Anion Gap mmol/L BUN (7-17) mg/dL Creatinine (0.52-1.04) mg/dL Est GFR (CKD-EPI)AfAm (>60 ml/min/1.73 sqM) Est GFR (CKD-EPI)NonAf (>60 ml/min/1.73 sqM) Glucose (74-99) mg/dL Plasma Lactic Acid Christopher (0.7-2.0) mmol/L Calcium (8.4-10.2) mg/dL Iron 29 L (50-170) UG/DL TIBC 290 (228-460) UG/DL % Saturation 10.00 L (12.00-45.00) Transferrin 207.0 (204.0-354.0) mg/dL Ferritin 207.0 (10.0-291.0) ng/mL Total Bilirubin (0.2-1.3) mg/dL AST (14-36) U/L ALT (4-34) U/L Alkaline Phosphatase (38-126) U/L Troponin I (0.000-0.034) ng/mL NT-Pro-B Natriuret Pep pg/mL Total Protein (6.3-8.2) g/dL Albumin (3.5-5.0) g/dL Procalcitonin (0.02-0.09) ng/mL Influenza Type A (PCR) (Not Detectd) Influenza Type B (PCR) (Not Detectd) RSV (PCR) (Not Detectd) SARS-CoV-2 (PCR) (Not Detectd) - EKG Data -: EKG Interpreted by Me EKG shows normal: sinus rhythm, axis (Normal), intervals (Normal) Rate: tachycardia (Rate 126 bpm) Critical Care Time Critical Care Time: Yes (45 minutes) Disposition Clinical Impression: Hypertensive emergency, Hyperkalemia, Pulmonary edema Disposition: ADMITTED IP TO THIS HOSP Condition: Critical Is patient prescribed a controlled substance at d/c from ED?: No
[2023-12-27 04:17] LABS: ALT 29 U/L (4-34); AST 44 U/L (14-36); African American GFR (CKD) 8 (>60 ml/min/1.73 sqM); Albumin 3.1 g/dL (3.5-5.0); Alkaline Phosphatase 93 U/L (38-126); Anion Gap 6 mmol/L; Blood Urea Nitrogen 71 mg/dL (7-17); Calcium 8.5 mg/dL (8.4-10.2); Carbon Dioxide 25 mmol/L (22-30); Chloride 104 mmol/L (98-107); Glucose 100 mg/dL (74-99); Non-African American GFR(CKD) 7 (>60 ml/min/1.73 sqM); Sodium 135 mmol/L (137-145); Total Bilirubin 0.7 mg/dL (0.2-1.3); Total Protein 5.7 g/dL (6.3-8.2)
--- NOTE | 2023-12-27 04:19 | XR ---
EXAM: XR Chest, 1 View CLINICAL HISTORY: ITS.REASON XR Reason: dyspnea TECHNIQUE: Frontal view of the chest. COMPARISON: No relevant prior studies available. FINDINGS: Lungs: See below. Pleural space: Unremarkable. No pneumothorax. Heart: See below. Mediastinum: Unremarkable. Normal mediastinal contour. Bones/joints: Unremarkable. No acute fracture. Tubes, lines and devices: Right-sided tunneled hemodialysis catheter with its tip in the right atrium. Diffuse interstitial infiltrate scattered throughout the lungs bilaterally consistent with multifocal pneumonia. Cardiomegaly. No effusions. IMPRESSION: Multifocal pneumonia
[2023-12-27 04:25] LABS: Potassium 6.3 mmol/L (3.5-5.1)
[2023-12-27 04:34] LABS: Eosinophils # (M) 0.31 k/uL (0-0.7); Lymphocytes # (M) 1.85 k/uL (1.0-4.8); Monocytes # (M) 1.55 k/uL (0-1.0); Neutrophils # (M) 27.19 k/uL (1.3-7.7); Neutrophils % (M) 88 %; Nucleated Red Blood Cells 0 /100 WBC (0-0); Total Cells Counted 100
[2023-12-27 04:45] LABS: NT-Pro-B-Type Natriuretic Pept 37200 pg/mL
[2023-12-27 04:49] LABS: VBG PH 7.48 (7.31-7.41)
[2023-12-27 05:00] LABS: INR 0.9 (<1.2); Partial Thromboplastin Time 23.1 sec (22.0-30.0); Prothrombin Time 10.3 sec (10.0-12.5)
[2023-12-27] MEDS: METOCLOPRAMIDE 5 MG/ML 2 ML VIAL IVP STA (06:35)
[2023-12-27] MEDS: MORPHINE SULFATE 2 MG/ML SYRINGE IVP PRN (10:22)
--- NOTE | 2023-12-27 11:15 | P.NPCON ---
History of Present Illness - Reason for Consult end stage renal disease - History of Present Illness Reason for consultation: End-stage renal disease History of present illness: Patient is a 33-year-old female seen in renal consultation for end-stage renal disease. Patient was seen and examined in the emergency room. She is maintained on hemodialysis on Wednesday schedule. Patient was recently admitted at [facility] due to impaired vision. There was concern for occipital CVA versus optic neuritis. She was subsequently transferred to [facility] and was discharged over the weekend. Patient developed sudden onset shortness of breath overnight and came to the hospital. She was scheduled to undergo urgent hemodialysis. She has a permacath. Patient is a type I diabetic. She has a PD catheter but still has not trained to do peritoneal dialysis. She still has impaired vision in both eyes. Hemodynamically stable. She is currently on BiPAP. Vital signs are stable. General: No acute distress. HEENT: Head exam is unremarkable. On BiPAP. LUNGS: Scattered rhonchi. HEART: Rate and Rhythm are regular. ABDOMEN: Nontender. EXTREMITITES: 2+ edema. Past Medical History Past Medical History: Diabetes Mellitus, GERD/Reflux, Hypertension, Renal Disease, Seizure Disorder, Thyroid Disorder Additional Past Medical History / Comment(s): Neuropathy, last seizure 2020, gastroparesis, headaches with dialysis, states "fast heart rate" since giving ., receives Hemodialysis and Saturdays at [facility]., right chest hemodialysis catheter., severe HTN. patient awaiting Kidney and Pancrease Transplant. , states sometimes she has had stroke -like symptoms but no stroke., hx of c-diff 2013. History of Any Multi-Drug Resistant Organisms: None Reported Date of last positivie culture/infection: 2013 MDRO Source:: stool Past Surgical History: Adenoidectomy, Section, Cholecystectomy, Orthopedic Surgery, Tonsillectomy Additional Past Surgical History / Comment(s): 2 KNEE SCOPES, EAR TUBES, additional left knee surgery related to fracture, new port a cath jul 29, eye surgeries for diabetic retinopathy. Past Anesthesia/Blood Transfusion Reactions: Previous Problems w/ Anesthesia Additional Past Anesthesia/Blood Transfusion Reaction / Comment(s): confusion Past Psychological History: Anxiety, Depression Smoking Status: Former smoker Past Alcohol Use History: None Reported Past Drug Use History: Marijuana, Methamphetamine - Past Family History Father Family Medical History: Unable to Obtain Mother Family Medical History: No Reported History Grandfather Additional Family Medical History / Comment(s): Diabetes mellitus type 2 Medications and Allergies Home Medications Medication Instructions Recorded Confirmed Type Aspirin 81 mg PO DAILY #30 tab 08/02/23 12/27/23 Rx Insulin Glargine,Hum.rec.anlog 25 units SQ DAILY@1330 10/22/23 12/27/23 History [Lantus Solostar Pen] Levothyroxine Sodium [Synthroid] 175 mcg PO DAILY 10/22/23 12/27/23 History Sertraline [Zoloft] 200 mg PO DAILY 10/22/23 12/27/23 History HYDROcodone/APAP 5-325MG [[place] 1 tab PO Q6HR PRN 3 Days #12 tab 10/25/23 12/27/23 Rx 5-325] Atorvastatin [Lipitor] 40 mg PO HS 12/27/23 12/27/23 History Clopidogrel [Plavix] 75 mg PO DAILY 12/27/23 12/27/23 History Divalproex ER [Depakote ER] 500 mg PO BID 12/27/23 12/27/23 History INSULIN LISPRO (humaLOG) [humaLOG] See Protocol SQ AC-TID PRN 12/27/23 12/27/23 History Lidocaine 5% Patch [Lidoderm] 1 patch TOPICAL BID 12/27/23 12/27/23 History NIFEdipine [Adalat CC] 60 mg PO DAILY 12/27/23 12/27/23 History Ondansetron [Zofran] 4 mg PO Q8HR PRN 12/27/23 12/27/23 History Pantoprazole [Protonix] 40 mg PO DAILY 12/27/23 12/27/23 History [place] Caps 1 cap PO HS 12/27/23 12/27/23 History Sulfamethox-Tmp 800-160Mg [Bactrim 1 tab PO DAILY 12/27/23 12/27/23 History DS 800-160 mg] carvediloL [Coreg] 25 mg PO BID 12/27/23 12/27/23 History hydrALAZINE HCL [Apresoline] 100 mg PO TID 12/27/23 12/27/23 History methocarbamoL [Robaxin-750] 750 mg PO QID 12/27/23 12/27/23 History Allergies Allergy/AdvReac Type Severity Reaction Status Date / Time hydromorphone HCl Allergy Anaphylaxis Verified 12/27/23 08:39 [From Dilaudid] ibuprofen [From Motrin] Allergy unable to Verified 12/27/23 08:39 take due to kidney disease morphine Allergy Nausea & Verified 12/27/23 08:39 Vomiting propoxyphene Allergy Rash/Hives Verified 12/27/23 08:39 [From Darvocet-N] tramadol Allergy Anaphylaxis Verified 12/27/23 08:39 venom-honey bee Allergy passes out Verified 12/27/23 08:39 [bee venom (honey bee)] Physical Exam Vitals: Vital Signs Temp Pulse Resp BP Pulse Ox FiO2 12/27/23 10:38 85 20 135/89 99 12/27/23 07:55 60 12/27/23 07:46 96 18 146/91 98 12/27/23 06:30 93 20 139/82 100 12/27/23 06:00 102 H 22 151/85 100 12/27/23 05:30 92 22 147/88 99 12/27/23 05:00 91 20 164/94 99 12/27/23 04:45 92 20 166/94 99 12/27/23 04:39 98 20 179/99 100 12/27/23 04:30 98 20 176/96 99 12/27/23 04:17 102 H 20 170/99 99 12/27/23 04:14 60 12/27/23 04:07 107 H 22 172/107 99 12/27/23 03:50 110 H 27 H 161/106 100 12/27/23 03:42 36 H 12/27/23 03:40 117 H 23 174/105 100 12/27/23 03:36 118 H 28 H 154/110 100 12/27/23 03:32 122 H 30 H 170/122 100 12/27/23 03:11 100 12/27/23 03:08 97.6 F 131 H 18 209/139 100 Intake and Output 12/26/23 12/27/23 12/27/23 22:59 06:59 14:59 Intake Total 5.8 197 Balance 5.8 197 Intake: Intake, IV Titration 5.8 197 Amount Nitroglycerin-D5w Pmx 50 5.8 197 mg In Dextrose/Water 1 250ml.bag @ 5 MCG/MIN 1.5 mls/hr IV .Q24H STA Rx#: [id number] Other: Weight 83.915 kg Results - Lab Results Most recent lab results Calcium 8.5 mg/dL (8.4-10.2) 12/27/23 03:46 12/27/23 03:46 12/27/23 03:46 Assessment and Plan Plan: Assessment: 1. End-stage renal disease maintained on hemodialysis on Wednesday schedule via right chest permacath. Has a PD catheter but still needs to be trained. 2. Acute hypoxic respiratory failure. 3. Volume overload. 4. Type 1 diabetes mellitus. 5. Impaired vision due to CVA versus optic neuritis. Neurology consulted. 6. Hypertension with chronic kidney disease. 7. Hyperkalemia secondary to chronic kidney disease. 8. Anemia of chronic kidney disease. Plan: Currently seen while undergoing hemodialysis. Another treatment tomorrow. Check phosphorus level. Check iron studies. Repeat potassium level this afternoon. Case discussed with primary team. Thank you for the consultation. I will continue to follow the patient with you during her hospital stay.
[2023-12-27] MEDS: CALCIUM ACETATE 667 MG TAB PO SCH (11:40)
[2023-12-27] MEDS: SODIUM BICARBONATE TAB 650 MG TAB PO SCH (11:46)
[2023-12-27] MEDS: carvediloL 12.5 MG TAB PO SCH (11:46)
[2023-12-27] MEDS: ASPIRIN 81 MG PO SCH (11:46)
[2023-12-27] MEDS: hydrALAZINE HCL 50 MG TAB PO SCH (11:46)
--- NOTE | 2023-12-27 13:15 | P.HPIM ---
History of Present Illness H&P Date: 12/27/23 Chief Complaint: dyspnea 33-year-old woman with medical history of end-stage renal disease secondary to type 1 diabetes who is on Wednesday dialysis via permacath. Patient was recently discharged from [facility] where she was transferred after developing sudden onset blindness while she was hospitalized in [facility] for dialysis. Following her discharge from [facility], patient noted she had significantly worsening shortness of breath and presented to [facility] for further evaluation. Patient was found to be hyperkalemic and significantly volume overloaded. Review of systems is negative for fevers, chills, nausea, vomiting. In the emergency room, patient was afebrile, 148/91, heart rate 85, 98% on nasal cannula. Upon initial arrival, patient was 210/140 and BiPAP dependent with a heart rate in the 130's and was started on a nitroglycerin drip which improved her blood pressure and heart rate. CBC demonstrated leukocytosis at 30.9, hemoglobin of 8.2. Chemistry shows sodium of 135, potassium is 6.3, BUN of 71, creatinine of 6.93, total protein of 5.7, albumin of 3.1, procalcitonin 1.23. VBG showed pH of 7.48, pCO2 of 33, coags were unremarkable. Influenza A, B, RSV, COVID were negative. Chest x-ray demonstrated cardiomegaly with diffuse interstitial infiltrates scattered throughout the lungs. EKG demonstrated sinus tachycardia with a short NV interval, no ischemic changes. No peaked T waves. All Systems reviewed and pertinent positives and negatives noted in HPI, all other symptoms are negative Gen: in no apparent distress, resting comfortably in bed Eyes: PERRL, no scleral injection or icterus HENT: normocephalic, atraumatic, good hearing acuity, moist mucous membranes Neck: no tracheal deviation, full range of motion Resp: good air exchange, breathing comfortably with no accessory muscle use, no tactile fremitus CVS: good distal perfusion x 4, no pitting edema GI: soft, NTTP, ND, no hepatosplenomegaly : no suprapubic tenderness, no CVAT, hardy catheter not present MSK: no clubbing, no cyanosis, no noted contractures of extremities Skin: no noted rashes, petechiae; temperature of skin is appropriate Neuro: moving all extremities without signs of weakness, CN II-XII intact Psych: cooperative, euthymic mood, insight and judgment intact Labs and imaging as above Assessment/plan: Acute hypoxemic respiratory failure secondary to volume overload Volume overload secondary to end-stage renal disease Hyperkalemia secondary to end-stage renal disease -Admit to inpatient -Nephrology was consulted for urgent dialysis -Supportive oxygen Acute blindness -Neurology was consulted -CT of the head, pending Type 1 diabetes -Resume home insulin regimen Patient is full code Past Medical History Past Medical History: Diabetes Mellitus, GERD/Reflux, Hypertension, Renal Disease, Seizure Disorder, Thyroid Disorder Additional Past Medical History / Comment(s): Neuropathy, last seizure 2020, gastroparesis, headaches with dialysis, states "fast heart rate" since giving ., receives Hemodialysis Wednesday- and Saturdays at [facility]., right chest hemodialysis catheter., severe HTN. patient awaiting Kidney and Pancrease Transplant. , states sometimes she has had stroke -like symptoms but no stroke., hx of c-diff 2013. History of Any Multi-Drug Resistant Organisms: None Reported Date of last positivie culture/infection: 2013 MDRO Source:: stool Past Surgical History: Adenoidectomy, Section, Cholecystectomy, Orthopedic Surgery, Tonsillectomy Additional Past Surgical History / Comment(s): 2 KNEE SCOPES, EAR TUBES, additional left knee surgery related to fracture, new port a cath jul 29, eye surgeries for diabetic retinopathy. Past Anesthesia/Blood Transfusion Reactions: Previous Problems w/ Anesthesia Additional Past Anesthesia/Blood Transfusion Reaction / Comment(s): confusion Past Psychological History: Anxiety, Depression Smoking Status: Former smoker Past Alcohol Use History: None Reported Past Drug Use History: Marijuana, Methamphetamine - Past Family History Father Family Medical History: Unable to Obtain Mother Family Medical History: No Reported History Grandfather Additional Family Medical History / Comment(s): Diabetes mellitus type 2 Medications and Allergies Home Medications Medication Instructions Recorded Confirmed Type Aspirin 81 mg PO DAILY #30 tab 08/02/23 12/27/23 Rx Insulin Glargine,Hum.rec.anlog 25 units SQ DAILY@1330 10/22/23 12/27/23 History [Lantus Solostar Pen] Levothyroxine Sodium [Synthroid] 175 mcg PO DAILY 10/22/23 12/27/23 History Sertraline [Zoloft] 200 mg PO DAILY 10/22/23 12/27/23 History HYDROcodone/APAP 5-325MG [[place] 1 tab PO Q6HR PRN 3 Days #12 tab 10/25/23 12/27/23 Rx 5-325] Atorvastatin [Lipitor] 40 mg PO HS 12/27/23 12/27/23 History Clopidogrel [Plavix] 75 mg PO DAILY 12/27/23 12/27/23 History Divalproex ER [Depakote ER] 500 mg PO BID 12/27/23 12/27/23 History INSULIN LISPRO (humaLOG) [humaLOG] See Protocol SQ AC-TID PRN 12/27/23 12/27/23 History Lidocaine 5% Patch [Lidoderm] 1 patch TOPICAL BID 12/27/23 12/27/23 History NIFEdipine [Adalat CC] 60 mg PO DAILY 12/27/23 12/27/23 History Ondansetron [Zofran] 4 mg PO Q8HR PRN 12/27/23 12/27/23 History Pantoprazole [Protonix] 40 mg PO DAILY 12/27/23 12/27/23 History [place] Caps 1 cap PO HS 12/27/23 12/27/23 History Sulfamethox-Tmp 800-160Mg [Bactrim 1 tab PO DAILY 12/27/23 12/27/23 History DS 800-160 mg] carvediloL [Coreg] 25 mg PO BID 12/27/23 12/27/23 History hydrALAZINE HCL [Apresoline] 100 mg PO TID 12/27/23 12/27/23 History methocarbamoL [Robaxin-750] 750 mg PO QID 12/27/23 12/27/23 History Allergies Allergy/AdvReac Type Severity Reaction Status Date / Time hydromorphone HCl Allergy Anaphylaxis Verified 12/27/23 08:39 [From Dilaudid] ibuprofen [From Motrin] Allergy unable to Verified 12/27/23 08:39 take due to kidney disease morphine Allergy Nausea & Verified 12/27/23 08:39 Vomiting propoxyphene Allergy Rash/Hives Verified 12/27/23 08:39 [From Darvocet-N] tramadol Allergy Anaphylaxis Verified 12/27/23 08:39 venom-honey bee Allergy passes out Verified 12/27/23 08:39 [bee venom (honey bee)] Physical Exam Osteopathic Statement: *. No significant issues noted on an osteopathic structural exam other than those noted in the History and Physical/Consult. Vitals: Vital Signs Temp Pulse Pulse Resp BP BP Pulse Ox 12/27/23 12:28 98 F 85 18 148/90 12/27/23 11:30 98 F 85 18 148/91 98 12/27/23 10:38 85 20 135/89 99 12/27/23 07:55 12/27/23 07:46 96 18 146/91 98 12/27/23 06:30 93 20 139/82 100 12/27/23 06:00 102 H 22 151/85 100 12/27/23 05:30 92 22 147/88 99 12/27/23 05:00 91 20 164/94 99 12/27/23 04:45 92 20 166/94 99 12/27/23 04:39 98 20 179/99 100 12/27/23 04:30 98 20 176/96 99 12/27/23 04:17 102 H 20 170/99 99 12/27/23 04:14 12/27/23 04:07 107 H 22 172/107 99 12/27/23 03:50 110 H 27 H 161/106 100 12/27/23 03:42 36 H 12/27/23 03:40 117 H 23 174/105 100 12/27/23 03:36 118 H 28 H 154/110 100 12/27/23 03:32 122 H 30 H 170/122 100 12/27/23 03:11 12/27/23 03:08 97.6 F 131 H 18 209/139 100 FiO2 12/27/23 12:28 12/27/23 11:30 12/27/23 10:38 12/27/23 07:55 60 12/27/23 07:46 12/27/23 06:30 12/27/23 06:00 12/27/23 05:30 12/27/23 05:00 12/27/23 04:45 12/27/23 04:39 12/27/23 04:30 12/27/23 04:17 12/27/23 04:14 60 12/27/23 04:07 12/27/23 03:50 02/12/24 03:42 12/27/23 03:40 12/27/23 03:36 12/27/23 03:32 12/27/23 03:11 100 12/27/23 03:08 Intake and Output 12/26/23 12/27/23 12/27/23 22:59 06:59 14:59 Intake Total 5.8 597 Output Total 3900 Balance 5.8 -3303 Intake: Intake, IV Titration 5.8 197 Amount Nitroglycerin-D5w Pmx 50 5.8 197 mg In Dextrose/Water 1 250ml.bag @ 5 MCG/MIN 1.5 mls/hr IV .Q24H STA Rx#: [id number] Hemodialysis 400 Output: Hemodialysis 3900 Other: Weight 83.915 kg Results CBC & Chem 7: 12/27/23 03:46 12/27/23 03:46 Labs: Abnormal Lab Results - Last 24 Hours (Table) 12/27/23 12/27/23 12/27/23 Range/Units 03:46 03:46 03:46 WBC 30.9 H (3.8-10.6) k/uL RBC 2.70 L (3.80-5.40) m/uL Hgb 8.2 L (11.4-16.0) gm/dL Hct 25.9 L (34.0-46.0) % Neutrophils # (Manual) 27.19 H (1.3-7.7) k/uL Monocytes # (Manual) 1.55 H (0-1.0) k/uL VBG pH (7.31-7.41) VBG pCO2 (37-51) mmHg Sodium 135 L (137-145) mmol/L Potassium 6.3 H* (3.5-5.1) mmol/L BUN 71 H (7-17) mg/dL Creatinine 6.93 H (0.52-1.04) mg/dL Glucose 100 H (74-99) mg/dL AST 44 H (14-36) U/L Total Protein 5.7 L (6.3-8.2) g/dL Albumin 3.1 L (3.5-5.0) g/dL Procalcitonin 0.23 H (0.02-0.09) ng/mL 12/27/23 Range/Units 04:06 WBC (3.8-10.6) k/uL RBC (3.80-5.40) m/uL Hgb (11.4-16.0) gm/dL Hct (34.0-46.0) % Neutrophils # (Manual) (1.3-7.7) k/uL Monocytes # (Manual) (0-1.0) k/uL VBG pH 7.48 H (7.31-7.41) VBG pCO2 33 L (37-51) mmHg Sodium (137-145) mmol/L Potassium (3.5-5.1) mmol/L BUN (7-17) mg/dL Creatinine (0.52-1.04) mg/dL Glucose (74-99) mg/dL AST (14-36) U/L Total Protein (6.3-8.2) g/dL Albumin (3.5-5.0) g/dL Procalcitonin (0.02-0.09) ng/mL
[2023-12-27] MEDS: methocarbamoL 750 MG TAB PO SCH (13:42)
[2023-12-27] MEDS: INSULIN DETEMIR (LEVEMIR) 100 UNIT/ML SYR SQ SCH (13:42)
--- NOTE | 2023-12-27 13:42 | CT ---
EXAMINATION TYPE: CT brain wo con DATE OF EXAM: 12/27/2023 COMPARISON: 07/31/2023 INDICATION: blindness DLP: 1050.4 mGycm, Automated exposure control for dose reduction was used. CONTRAST: None CT of the brain is performed utilizing 3 mm thick sections through the posterior fossa and 3 mm thick sections through the remaining calvarium. Study is performed within 24 hours of arrival to the hosp ital. No abnormal hyperdensity is present to suggest an acute intracranial hemorrhage. No mass lesion is evident. No acute infarcts are evident. Suprasellar cistern in the region of the optic chiasm as visualized is normal. Ventricles and sulci are appropriate for the patient age. Paranasal sinuses and mastoid air cells within the [id number] are clear. IMPRESSION: 1. No acute intracranial process to account for the patient's symptoms. Consider MRI for additional workup.
[2023-12-27] MEDS: HYDROcodone/APAP 5-325MG 1 EACH TAB PO PRN (13:50)
--- NOTE | 2023-12-27 14:45 | US ---
EXAMINATION TYPE: US carotid duplex BILAT DATE OF EXAM: 12/27/2023 COMPARISON: CLINICAL INDICATION: Female, 33 years old with history of stroke; HTN- pt states she is on meds. No hx TIA or stroke. SOB. Dialysis. TECHNIQUE: Carotid duplex ultrasound examination. Indirect Doppler criteria was utilized. FINDINGS: EXAM MEASUREMENTS: RIGHT: Peak Systolic Velocity (PSV) cm/sec ----- Right CCA: 104.8 ----- Right ICA: 108.8 ----- Right ECA: 171.7 ICA/CCA ratio: 1.0 RIGHT: End Diastole cm/sec ----- Right CCA: 19.2 ----- Right ICA: 27.3 ----- Right ECA: 0.0 LEFT: Peak Systolic Velocity (PSV) cm/sec ----- Left CCA: 94.7 ----- Left ICA: 111.3 ----- Left ECA: 173.3 ICA/CCA ratio: 1.2 LEFT: End Diastole cm/sec ----- Left CCA: 28.4 ----- Left ICA: 41.8 ----- Left ECA: 17.7 VERTEBRALS (direction of flow): Right Vertebral: Antegrade Left Vertebral: Antegrade Rhythm: Normal BURSAR NOTES: No wall thickening or plaque seen. IMPRESSION: Less than 50% stenosis of the bilateral carotid bifurcations. Criteria for Assigning % of Stenosis / Diameter reduction (Estimation based on the indirect measurements of the internal carotid artery velocities (ICA PSV). 1. Normal (no stenosis)=ICA PSV < 125 cm/s: ratio < 2.0: ICA EDV<40 cm/s. 2. Less than 50% stenosis=ICA PSV < 125 cm/s: ratio < 2.0: ICA EDV<40 cm/s. 3. 50 to 69% stenosis=ICA PSV of 125 to 230 cm/s: ration 2.0 ? 4.0: ICA EDV 40-100 cm/s. 4. Greater than 70% stenosis to near occlusion= ICA PSV > 230 cm/s: ratio > 4.0: ICA EDV > 100 cm/s. 5. Near occlusion= ICA PSV velocities may be low or undetectable: variable ratio and ICA EDV. 6. Total occlusion=unable to detect flow.
[2023-12-27 16:06] LABS: Glucose,Whole Blood 332 mg/dL (70-110)
--- NOTE | 2023-12-27 16:22 | P.CNNES ---
History of Present Illness Consult date: 12/27/23 Requesting physician: Yossi Golden Reason for Consult: acute blindness History of Present Illness: This is a 33-year-old woman who presented emergency department because of shortness of breath. Neurology is consulted for acute blindness. According to the patient on 12/10/2023 she had blindness over the right eye and severe blurry vision on the left eye and the was taken to [facility] and they're she was there for 5-6 days and that she had some imaging then was transferred to [facility] for chelation of care for her neurological issues. She stated that at [facility] she had MRI and was told possible inflammation around the eye versus a stroke and she stated that every team was given her a different response according to the patient. She stated that she received IV antibiotic. She does have right eye pain with movement since the end of November 2023. She stated a few month ago she had the right facial weakness and dysarthria. She does not have an official diagnosis of multiple sclerosis. She never followed up with a neurologist as an outpatient. He states she has minimal headache over the right side and denies any vomiting. She stated that she is legally blind over the right eye as a result and the severely blurry over the left eye can make out on the left eye. She states maybe she can see us back over the right if any. The difficult swallowing, any focal weakness or numbness. She has history of diabetes as chronic for at least 26 years. She stated that she's been on dialysis for last 7 month. She denies any tobacco use. She is to have history of illicit drug use using meth but has not done it in a while. She does take aspirin at home 81 mg. Spoke with the primary team and he stated at the outside hospital they thought possible stroke versus optic neuritis and was started on steroids at [facility]. Patient is afebrile. Some other workup during his hospital visit consisted of: Initial white blood cell is 30.9 thousand predominately neutrophilic Sodium is 135, glucose is 100, calcium is 8.5, AST of [address] of the head is reported as no acute intracranial process to account for the patient's symptoms. Consider MRI for additional workup. I reviewed the CT and agree with report. Carotid duplex was reported as less than 50% stenosis of bilateral carotid bifurcation. Review of Systems Review of system: The 12 point system was reviewed and apparent positive and negative per HPI. Past Medical History Past Medical History: Diabetes Mellitus, GERD/Reflux, Hypertension, Renal Disease, Seizure Disorder, Thyroid Disorder Additional Past Medical History / Comment(s): Neuropathy, last seizure 2020, gastroparesis, headaches with dialysis, states "fast heart rate" since giving ., receives Hemodialysis Wednesday- and Saturdays at [facility] [place] right chest hemodialysis catheter., severe HTN. patient aw aiting Kidney and Pancrease Transplant. , states sometimes she has had stroke - like symptoms but no stroke., hx of c-diff 2013. History of Any Multi-Drug Resistant Organisms: None Reported Date of last positivie culture/infection: 2013 MDRO Source:: stool Past Surgical History: Adenoidectomy, Section, Cholecystectomy, Orthopedic Surgery, Tonsillectomy Additional Past Surgical History / Comment(s): 2 KNEE SCOPES, EAR TUBES, additional left knee surgery related to fracture, new port a cath jul 29, eye surgeries for diabetic retinopathy. Past Anesthesia/Blood Transfusion Reactions: Previous Problems w/ Anesthesia Additional Past Anesthesia/Blood Transfusion Reaction / Comment(s): confusion Past Psychological History: Anxiety, Depression Smoking Status: Former smoker Past Alcohol Use History: None Reported Past Drug Use History: Marijuana, Methamphetamine - Past Family History Father Family Medical History: Unable to Obtain Mother Family Medical History: No Reported History Grandfather Additional Family Medical History / Comment(s): Diabetes mellitus type 2 Medications and Allergies Home Medications Medication Instructions Recorded Confirmed Type Aspirin 81 mg PO DAILY #30 tab 08/02/23 12/27/23 Rx Insulin Glargine,Hum.rec.anlog 25 units SQ DAILY@1330 10/22/23 12/27/23 History [Lantus Solostar Pen] Levothyroxine Sodium [Synthroid] 175 mcg PO DAILY 10/22/23 12/27/23 History Sertraline [Zoloft] 200 mg PO DAILY 10/22/23 12/27/23 History HYDROcodone/APAP 5-325MG [[place] 1 tab PO Q6HR PRN 3 Days #12 tab 10/25/2311/07 Rx 5-325] Atorvastatin [Lipitor] 40 mg PO HS 12/27/23 12/27/23 History Clopidogrel [Plavix] 75 mg PO DAILY 12/27/23 12/27/23 History Divalproex ER [Depakote ER] 500 mg PO BID 12/27/23 12/27/23 History INSULIN LISPRO (humaLOG) [humaLOG] See Protocol SQ AC-TID PRN 12/27/23 12/27/23 History Lidocaine 5% Patch [Lidoderm] 1 patch TOPICAL BID 12/27/23 12/27/23 History NIFEdipine [Adalat CC] 60 mg PO DAILY 12/27/23 12/27/23 History Ondansetron [Zofran] 4 mg PO Q8HR PRN 12/27/23 12/27/23 History Pantoprazole [Protonix] 40 mg PO DAILY 12/27/23 12/27/23 History [place] Caps 1 cap PO HS 12/27/23 12/27/23 History Sulfamethox-Tmp 800-160Mg [Bactrim 1 tab PO DAILY 12/27/23 12/27/23 History DS 800-160 mg] carvediloL [Coreg] 25 mg PO BID 12/27/23 12/27/23 History hydrALAZINE HCL [Apresoline] 100 mg PO TID 12/27/23 12/27/23 History methocarbamoL [Robaxin-750] 750 mg PO QID 12/27/23 12/27/23 History Allergies Allergy/AdvReac Type Severity Reaction Status Date / Time hydromorphone HCl Allergy Anaphylaxis Verified 12/27/23 08:39 [From Dilaudid] ibuprofen [From Motrin] Allergy unable to Verified 12/27/23 08:39 take due to kidney disease morphine Allergy Nausea & Verified 12/27/23 08:39 Vomiting propoxyphene Allergy Rash/Hives Verified 12/27/23 08:39 [From Darvocet-N] tramadol Allergy Anaphylaxis Verified 12/27/23 08:39 venom-honey bee Allergy passes out Verified 12/27/23 08:39 [bee venom (honey bee)] Physical Examination - Vital Signs Vital Signs: Vital Signs Temp Pulse Pulse Resp BP BP Pulse Ox 12/27/23 15:05 85 16 12/27/23 14:59 98 16 111/63 97 12/27/23 13:31 95 16 115/65 96 12/27/23 12:28 98 F 85 18 148/90 12/27/23 11:30 98 F 85 18 148/91 98 12/27/23 10:38 85 20 135/89 99 12/27/23 07:55 12/27/23 07:46 96 18 146/91 98 12/27/23 06:30 93 20 139/82 100 12/27/23 06:00 102 H 22 151/85 100 12/27/23 05:30 92 22 147/88 99 12/27/23 05:00 91 20 164/94 99 12/27/23 04:45 92 20 166/94 99 12/27/23 04:39 98 20 179/99 100 12/27/23 04:30 98 20 176/96 99 12/27/23 04:17 102 H 20 170/99 99 12/27/23 04:14 12/27/23 04:07 107 H 22 172/107 99 12/27/23 03:50 110 H 27 H 161/106 100 12/27/23 03:42 36 H 12/27/23 03:40 117 H 23 174/105 100 12/27/23 03:36 118 H 28 H 154/110 100 12/27/23 03:32 122 H 30 H 170/122 100 12/27/23 03:11 12/27/23 03:08 97.6 F 131 H 18 209/139 100 FiO2 12/27/23 15:05 12/27/23 14:59 12/27/23 13:31 12/27/23 12:28 12/27/23 11:30 12/27/23 10:38 12/27/23 07:55 60 12/27/23 07:46 12/27/23 06:30 12/27/23 06:00 12/27/23 05:30 12/27/23 05:00 12/27/23 04:45 12/27/23 04:39 12/27/23 04:30 12/27/23 04:17 12/27/23 04:14 60 12/27/23 04:07 12/27/23 03:50 12/27/23 03:42 12/27/23 03:40 12/27/23 03:36 12/27/23 03:32 12/27/23 03:11 100 12/27/23 03:08 Intake and Output 12/27/23 12/27/23 12/27/23 06:59 14:59 22:59 Intake Total 5.8 597 Output Total 3900 Balance 5.8 -3303 Intake: Intake, IV Titration 5.8 197 Amount Nitroglycerin-D5w Pmx 50 5.8 197 mg In Dextrose/Water 1 250ml.bag @ 5 MCG/MIN 1.5 mls/hr IV .Q24H STA Rx#: [id number] Hemodialysis 400 Output: Hemodialysis 3900 Other: Weight 83.915 kg GENERAL: The patient is lying in bed and is not in acute distress. HENT: Supple neck. NEUROLOGICAL: Higher mental function: The patient is awake, alert, oriented to self, place and time. Patient is following commands. No aphasia and no neglect. Cranial nerves: The pupils are round, right is 4mm and left is 3mm and right is sluggishly reactive to light while left is briskly reactive. Has APD over the right. Visual armendariz is legally blind over the right while left is full to confrontation throughout. Extraocular movement is intact no nystagmus is noted. Facial sensation is normal to touch throughout. The facial strength is normal throughout. Hearing is normal bilaterally to hand rub. Tongue is midline and moved [id number] without any difficulty. No dysarthria is noted. Shoulder shrug is normal bilaterally. Motor: The strength is 5 over 5 throughout. Normal tone and bulk. Cerebellum: Normal finger to nose heel to chin bilaterally. Sensation: Sensation is normal to touch throughout. Reflexes (right/left): 2+. Plantars are mute bilaterally. Results - Laboratory Findings CBC and BMP: 12/27/23 03:46 12/27/23 03:46 Abnormal Lab Findings: Abnormal Labs 12/27/23 12/27/23 12/27/23 03:46 03:46 03:46 WBC 30.9 H RBC 2.70 L Hgb 8.2 L Hct 25.9 L Neutrophils # (Manual) 27.19 H Monocytes # (Manual) 1.55 H VBG pH VBG pCO2 Sodium 135 L Potassium 6.3 H* BUN 71 H Creatinine 6.93 H Glucose 100 H POC Glucose (mg/dL) AST 44 H Total Protein 5.7 L Albumin 3.1 L Procalcitonin 0.23 H 12/27/23 12/27/23 04:06 16:04 WBC RBC Hgb Hct Neutrophils # (Manual) Monocytes # (Manual) VBG pH 7.48 H VBG pCO2 33 L Sodium Potassium BUN Creatinine Glucose POC Glucose (mg/dL) 332 H AST Total Protein Albumin Procalcitonin Assessment and Plan Assessment: This is a 33-year-old woman who has chronic history of 5 diabetes, end-stage renal disease on dialysis who presented emergency department because of shortness of breath. It seems that the on 12/10/2023 she went to outside hospital (like [place] for complete the visual loss over the right eye with eye pain and the blurry vision over the left eye and was told the she had the possible optic neuritis esses occipital stroke. Seems at the outside hospital she received IV steroids and then was transferred to to [facility] for escalation of care. She stated that she was not given a determined answer whether was optic neuritis versus a stroke. Right eye pain with visual loss over the right eye and blurry vision of left eye: Patient was notified she had optic neuritis versus occipital stroke at the outside hospital course the patient. She had a current CT of the head and carotid duplex in our facility which were negative. History of right facial droop and dysarthria a couple months ago. The patient stated that she did not have a stroke at that time when she went to the hospital Leukocytosis is likely reactive due to steroids. Does not have fevers Dyspnea possibly due to ESRD ESRD on dialysis Chronic Diabetes Mellitus Plan: I ordered MRI the brain, MRA of the head, 2-D echo, ESR, CRP, TSH, vitamin B12. We'll try to obtain records from the outside hospital She is on aspirin 81 mg daily as well as Lipitor 40 mg daily Follow G and cardiology on board We'll defer the rest of the medical management to primary and other specialists On discharge recommend the patient to follow-up with a neurologist as an outpatient within 1-2 weeks The plan discussed with the patient and the primary attending Thank you consultation Time with Patient: Greater than 30
[2023-12-27 16:57] LABS: C Reactive Protein 5.7 mg/dL (<1.0)
[2023-12-27] MEDS: INSULIN ASPART (NovoLOG) 100 UNIT/ML VIAL SQ SCH (17:16)
[2023-12-27 18:10] LABS: T4, Free (Free Thyroxine) 1.17 ng/dL (0.78-2.19)
[2023-12-27 20:15] LABS: Glucose,Whole Blood 362 mg/dL (70-110)
[2023-12-27] MEDS: DIVALPROEX ER 500 MG TAB.ER.24H PO SCH (20:27)
[2023-12-27] MEDS: ATORVASTATIN 40 MG TAB PO SCH (20:27)
[2023-12-27] MEDS: LIDOCAINE 4% PATCH TOPICAL SCH (20:27)
[2023-12-27] MEDS: FOLIC ACID-VIT B COMPLEX-VIT C 1 CAP PO SCH (21:31)
[2023-12-28 05:49] LABS: Glucose,Whole Blood 203 mg/dL (70-110)
[2023-12-28] MEDS: LEVOTHYROXINE 88 MCG TAB PO SCH (06:27)
[2023-12-28] MEDS: PANTOPRAZOLE 40 MG TABLET PO SCH (06:27)
[2023-12-28 07:33] LABS: Basophils % (A) 0 %; Eosinophils # (A) 0.3 k/uL (0-0.7); Eosinophils % (A) 2 %; HCT 20.9 % (34.0-46.0); Lymphocytes # (A) 1.4 k/uL (1.0-4.8); Lymphocytes % (A) 9 %; MCHC 31.9 g/dL (31.0-37.0); Mean Platelet Volume 8.7; Monocytes # (A) 1.2 k/uL (0-1.0); Monocytes % (A) 8 %; Neutrophils # (A) 12.5 k/uL (1.3-7.7); Neutrophils % (A) 81 %; Platelet Count 294 k/uL (150-450); RBC 2.16 m/uL (3.80-5.40); WBC 15.5 k/uL (3.8-10.6)
[2023-12-28 07:55] LABS: HGB 6.7 gm/dL (11.4-16.0)
[2023-12-28 07:56] LABS: African American GFR (CKD) 12 (>60 ml/min/1.73 sqM); Anion Gap 7 mmol/L; Blood Urea Nitrogen 46 mg/dL (7-17); Calcium 8.2 mg/dL (8.4-10.2); Carbon Dioxide 25 mmol/L (22-30); Chloride 99 mmol/L (98-107); Glucose 166 mg/dL (74-99); Non-African American GFR(CKD) 11 (>60 ml/min/1.73 sqM); Phosphorus 4.1 mg/dL (2.5-4.5); Potassium 5.7 mmol/L (3.5-5.1); Sodium 131 mmol/L (137-145)
[2023-12-28] MEDS: CLOPIDOGREL 75 MG TAB PO SCH (08:16)
[2023-12-28] MEDS: SERTRALINE 100 MG TAB PO SCH (08:18)
--- NOTE | 2023-12-28 10:51 | P.PN ---
Subjective Patient is seen in follow-up for end-stage renal disease. She is maintained on hemodialysis on Wednesday schedule. Tolerating dialysis well. Hemoglobin 6.7 is scheduled to receive a unit of blood. Vital signs are stable. General: No acute distress. HEENT: Head exam is unremarkable. On nasal cannula. LUNGS: No audible rhonchi or wheezes. HEART: Rate and Rhythm are regular. ABDOMEN: Nontender. EXTREMITITES: 1+ edema. Objective - Vital Signs Vital signs: Vital Signs Temp 97.5 F L 12/28/23 07:30 Pulse 99 12/28/23 07:30 Resp 18 12/28/23 07:30 BP 121/71 12/28/23 07:30 Pulse Ox 98 12/28/23 07:30 FiO2 60 12/27/23 07:55 Intake & Output 12/27/23 12/28/23 12/28/23 18:59 06:59 18:59 Intake Total 1077 360 Output Total 3900 Balance -2823 360 Weight 83.915 kg 87.9 kg Intake: Intake, IV Titration 197 Amount Nitroglycerin-D5w Pmx 50 197 mg In Dextrose/Water 1 250ml.bag @ 5 MCG/MIN 1.5 mls/hr IV .Q24H STA Rx#: [id number] Oral 480 360 Hemodialysis 400 Output: Hemodialysis 3900 Other: Voiding Method Toilet # Voids 1 - Labs CBC & Chem 7: 12/28/23 06:17 12/28/23 06:17 Labs: Abnormal Lab Results - Last 24 Hours (Table) 12/27/23 12/27/23 12/27/23 Range/Units 03:46 15:52 15:52 WBC (3.8-10.6) k/uL RBC (3.80-5.40) m/uL Hgb (11.4-16.0) gm/dL Hct (34.0-46.0) % Neutrophils # (1.3-7.7) k/uL Monocytes # (0-1.0) k/uL ESR 33 H (0-20) mm/Hr Sodium (137-145) mmol/L Potassium (3.5-5.1) mmol/L BUN (7-17) mg/dL Creatinine (0.52-1.04) mg/dL Glucose (74-99) mg/dL POC Glucose (mg/dL) (70-110) mg/dL Calcium (8.4-10.2) mg/dL Iron 29 L (50-170) UG/DL % Saturation 10.00 L (12.00-45.00) C-Reactive Protein 5.7 H (<1.0) mg/dL TSH 7.230 H (0.465-4.680) mIU/L 12/27/23 12/27/23 12/28/23 Range/Units 16:04 20:14 05:47 WBC (3.8-10.6) k/uL RBC (3.80-5.40) m/uL Hgb (11.4-16.0) gm/dL Hct (34.0-46.0) % Neutrophils # (1.3-7.7) k/uL Monocytes # (0-1.0) k/uL ESR (0-20) mm/Hr Sodium (137-145) mmol/L Potassium (3.5-5.1) mmol/L BUN (7-17) mg/dL Creatinine (0.52-1.04) mg/dL Glucose (74-99) mg/dL POC Glucose (mg/dL) 332 H 362 H 203 H (70-110) mg/dL Calcium (8.4-10.2) mg/dL Iron (50-170) UG/DL % Saturation (12.00-45.00) C-Reactive Protein (<1.0) mg/dL TSH (0.465-4.680) mIU/L 12/28/23 12/28/23 Range/Units 06:17 06:17 WBC 15.5 H (3.8-10.6) k/uL RBC 2.16 L (3.80-5.40) m/uL Hgb 6.7 L* D (11.4-16.0) gm/dL Hct 20.9 L (34.0-46.0) % Neutrophils # 12.5 H (1.3-7.7) k/uL Monocytes # 1.2 H (0-1.0) k/uL ESR (0-20) mm/Hr Sodium 131 L (137-145) mmol/L Potassium 5.7 H (3.5-5.1) mmol/L BUN 46 H (7-17) mg/dL Creatinine 4.98 H (0.52-1.04) mg/dL Glucose 166 H (74-99) mg/dL POC Glucose (mg/dL) (70-110) mg/dL Calcium 8.2 L (8.4-10.2) mg/dL Iron (50-170) UG/DL % Saturation (12.00-45.00) C-Reactive Protein (<1.0) mg/dL TSH (0.465-4.680) mIU/L Assessment and Plan Plan: Assessment: 1. End-stage renal disease maintained on hemodialysis on Wednesday schedule via right chest permacath. Has a PD catheter but still needs to be trained. 2. Acute hypoxic respiratory failure. 3. Volume overload. Improving with ultrafiltration. 4. Type 1 diabetes mellitus. 5. Impaired vision due to CVA versus optic neuritis. Neurology following. 6. Hypertension with chronic kidney disease. Better controlled. 7. Hyperkalemia secondary to chronic kidney disease. Improved postdialysis. 8. Anemia of chronic kidney disease. Scheduled to receive a unit of blood today. Plan: Currently seen while undergoing hemodialysis. Another treatment tomorrow. Phosphorus level 4.1 dated December 28, 2023. IV DDAVP x 1 dose today. Add Aranesp. Awaits transfer to [facility].
[2023-12-28 11:45] LABS: Glucose,Whole Blood 179 mg/dL (70-110)
--- NOTE | 2023-12-28 12:16 | P.PN ---
Subjective Progress Note Date: 12/28/23 Hospital Course: 33-year-old female with ESRD on hemodialysis, type 1 diabetes, hypertension, dyslipidemia presenting with acute on chronic shortness of breath. She first discovered about renal disease when she became , and subsequently was preeclamptic at the later stages of . She was started on hemodialysis 1 month prior to delivery. She remained on hemodialysis ever since. She u nderwent workup, and currently planning on getting pancreatic and renal transplant at [facility]. However, 3 weeks ago, she developed sudden onset bilateral vision loss. She initially presented to [facility], and was transferred to [facility]. She claims that workup at that hospital showed possible infection of the eye, was started on IV antibiotics and later discharged on oral antibiotics. She was only home for 1 day before she started developing worsening shortness of breath, and presented back to our facility. In the emergency room, patient was afebrile, 148/91, heart rate 85, 98% on nasal cannula. Upon initial arrival, patient was 210/140 and BiPAP dependent with a heart rate in the 130's and was started on a nitroglycerin drip which improved her blood pressure and heart rate. CBC demonstrated leukocytosis at 30.9, hemoglobin of 8.2. Chemistry shows sodium of 135, potassium is 6.3, BUN of 71, creatinine of 6.93, total protein of 5.7, albumin of 3.1, procalcitonin 1.23. VBG showed pH of 7.48, pCO2 of 33, coags were unremarkable. Influenza A, B, RSV, COVID were negative. Chest x-ray demonstrated cardiomegaly with diffuse interstitial infiltrates scattered throughout the lungs. EKG demonstrated sinus tachycardia with a short DC interval, no ischemic changes. No peaked T waves. Nephrology and neurology were consulted. Currently pending records from [facility] as well as ophthalmology is consulted. Subjective: Patient seen and examined at bedside. No acute events overnight. Complaining of body wide pain, unable to localize. Denies any further changes in her vision. Shortness of breath slightly improved after dialysis. Making very little urine. Pertinent positives and negatives as discussed above, a complete review of systems was performed and all other systems are negative. Vitals Signs Reviewed. General: Nontoxic, no distress, appears at stated age Derm: Warm, dry Head: Atraumatic, normocephalic, symmetric Eyes: Reduced visual acuity bilaterally, worse on the left, pupils equal and reactive to light Mouth: No lip lesion, mucus membranes moist Cardiovascular: S1S2 reg, no murmur Lungs: Bilateral] , no accessory muscle use, supplemental oxygen Abdominal: Soft, nontender to palpation, no guarding, no appreciable organomegaly Ext: No gross muscle atrophy, 2+ pitting edema, no contractures Neuro: CN II-XI grossly intact, no focal neuro deficits Psych: Alert, oriented, appropriate affect Data Reviewed Today: Pertinent Labs: WBC 15.5, hemoglobin 6.7, sodium 131, potassium 5.7, creatinine 4.98, blood sugars range between 1 66-3 62, magnesium 2 Imaging: Brain CT did not show any acute process. Carotid Dopplers did not show any significant stenosis. Assessment and Plan: Active: Acute hypoxic respiratory failure Acute pulmonary edema ESRD on hemodialysis Hyperkalemia Hypertensive urgency Anemia of chronic disease -Nephrology note reviewed, continue hemodialysis, another treatment tomorrow, added aranesp, IV DDAVP -Hemoglobin 6.7, pending 1 unit of PRBCs -No active bleeding -Continue to wean oxygen -Blood pressure better on oral Coreg 25 twice daily, hydralazine 100 3 times daily, nifedipine 60 daily -Was on nitroglycerin drip in the ER, now discontinued Subacute bilateral vision loss -Pending records from [facility] -Discussed management with neurology, holding off on MRI for now -Ophthalmology consulted Type 1 diabetes -Levemir 25 units daily, sliding scale insulin, monitor for hypoglycemia Chronic: Depression GERD Hypothyroidism Dyslipidemia DVT ppx: SCDs Code status: Full code Anticipated discharge place: Pending clinical course Anticipated discharge time: Pending clinical course Objective - Vital Signs Vital signs: Vital Signs Temp 97.1 F L 12/28/23 11:42 Pulse 94 12/28/23 12:02 Resp 17 12/28/23 12:02 BP 160/85 12/28/23 12:02 Pulse Ox 99 12/28/23 11:42 FiO2 60 12/27/23 07:55 Intake & Output 12/27/23 12/28/23 12/28/23 18:59 06:59 18:59 Intake Total 1077 360 Output Total 3900 Balance -2823 360 Weight 83.915 kg 87.9 kg Intake: Intake, IV Titration 197 Amount Nitroglycerin-D5w Pmx 50 197 mg In Dextrose/Water 1 250ml.bag @ 5 MCG/MIN 1.5 mls/hr IV .Q24H STA Rx#: [id number] Oral 480 360 Blood Product 0 Rc As-1 Unit 0 [id number] Hemodialysis 400 Output: Hemodialysis 3900 Other: Voiding Method Toilet # Voids 1 1 # Bowel Movements 1 - Labs CBC & Chem 7: 12/28/23 06:17 12/28/23 06:17 Labs: Abnormal Lab Results - Last 24 Hours (Table) 12/27/23 12/27/23 12/27/23 Range/Units 03:46 15:52 15:52 WBC (3.8-10.6) k/uL RBC (3.80-5.40) m/uL Hgb (11.4-16.0) gm/dL Hct (34.0-46.0) % Neutrophils # (1.3-7.7) k/uL Monocytes # (0-1.0) k/uL ESR 33 H (0-20) mm/Hr Sodium (137-145) mmol/L Potassium (3.5-5.1) mmol/L BUN (7-17) mg/dL Creatinine (0.52-1.04) mg/dL Glucose (74-99) mg/dL POC Glucose (mg/dL) (70-110) mg/dL Calcium (8.4-10.2) mg/dL Iron 29 L (50-170) UG/DL % Saturation 10.00 L (12.00-45.00) C-Reactive Protein 5.7 H (<1.0) mg/dL TSH 7.230 H (0.465-4.680) mIU/L Crossmatch 12/27/23 12/27/23 12/28/23 Range/Units 16:04 20:14 05:47 WBC (3.8-10.6) k/uL RBC (3.80-5.40) m/uL Hgb (11.4-16.0) gm/dL Hct (34.0-46.0) % Neutrophils # (1.3-7.7) k/uL Monocytes # (0-1.0) k/uL ESR (0-20) mm/Hr Sodium (137-145) mmol/L Potassium (3.5-5.1) mmol/L BUN (7-17) mg/dL Creatinine (0.52-1.04) mg/dL Glucose (74-99) mg/dL POC Glucose (mg/dL) 332 H 362 H 203 H (70-110) mg/dL Calcium (8.4-10.2) mg/dL Iron (50-170) UG/DL % Saturation (12.00-45.00) C-Reactive Protein (<1.0) mg/dL TSH (0.465-4.680) mIU/L Crossmatch 12/28/23 12/28/23 12/28/23 Range/Units 06:17 06:17 09:25 WBC 15.5 H (3.8-10.6) k/uL RBC 2.16 L (3.80-5.40) m/uL Hgb 6.7 L* D (11.4-16.0) gm/dL Hct 20.9 L (34.0-46.0) % Neutrophils # 12.5 H (1.3-7.7) k/uL Monocytes # 1.2 H (0-1.0) k/uL ESR (0-20) mm/Hr Sodium 131 L (137-145) mmol/L Potassium 5.7 H (3.5-5.1) mmol/L BUN 46 H (7-17) mg/dL Creatinine 4.98 H (0.52-1.04) mg/dL Glucose 166 H (74-99) mg/dL POC Glucose (mg/dL) (70-110) mg/dL Calcium 8.2 L (8.4-10.2) mg/dL Iron (50-170) UG/DL % Saturation (12.00-45.00) C-Reactive Protein (<1.0) mg/dL TSH (0.465-4.680) mIU/L Crossmatch See Detail 12/28/23 Range/Units 11:25 WBC (3.8-10.6) k/uL RBC (3.80-5.40) m/uL Hgb (11.4-16.0) gm/dL Hct (34.0-46.0) % Neutrophils # (1.3-7.7) k/uL Monocytes # (0-1.0) k/uL ESR (0-20) mm/Hr Sodium (137-145) mmol/L Potassium (3.5-5.1) mmol/L BUN (7-17) mg/dL Creatinine (0.52-1.04) mg/dL Glucose (74-99) mg/dL POC Glucose (mg/dL) 179 H (70-110) mg/dL Calcium (8.4-10.2) mg/dL Iron (50-170) UG/DL % Saturation (12.00-45.00) C-Reactive Protein (<1.0) mg/dL TSH (0.465-4.680) mIU/L Crossmatch
[2023-12-28] MEDS: DARBEPOETIN ALFA 40 MCG/0.4 ML SYRINGE SQ SCH (13:05)
[2023-12-28] MEDS: DESMOPRESSIN ACETATE 26 MCG in SODIUM CHLORIDE 0.9% 50 ML IVPB ONE (13:44)
--- NOTE | 2023-12-28 14:20 | CA ---
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 67 - 155 / 56 - 104 cm??? LV Systolic Volume MOD BP 39.7 cm??? 22 - 58 / 19 - 49 cm??? LV Ejection Fraction MOD BP 49.7 % >= 55 % LV Cardiac Index MOD BP 1860.4 cm???/min???m??? LV Diastolic Volume MOD 4C 83.1 cm??? LV Systolic Volume MOD 4C 43.2 cm??? LV Ejection Fraction MOD 4C 48.0 % LV Cardiac Index MOD 4C 1891.7 cm???/min???m??? LV Diastolic Length 4C 8.1 cm LV Systolic Length 4C 7.0 cm LV Diastolic Volume MOD 2C 73.8 cm??? LV Systolic Volume MOD 2C 33.7 cm??? LV Ejection Fraction MOD 2C 54.3 % LV Cardiac Index MOD 2C 1898.3 cm???/min???m??? LV Diastolic Length 2C 7.9 cm LV Systolic Length 2C 6.4 cm LA Volume 40.4 cm??? 18 - 58 / 22 - 52 cm??? LA Volume Index 20.0 cm???/m??? 16 - 28 cm???/m??? DOPPLER AV Peak Velocity 214.3 cm/s AV Peak Gradient 18.4 mmHg AV Mean Velocity 145.2 cm/s AV Mean Gradient 9.7 mmHg AV Velocity Time Integral 41.1 cm LVOT Peak Velocity 149.5 cm/s LVOT Peak Gradient 8.9 mmHg LVOT Velocity Time Integral 27.5 cm LVOT Stroke Volume 90.6 cm??? LVOT Stroke Volume Index 45.8 ml/m??? LVOT Cardiac Index 4295.3 cm???/min???m??? AV Area Cont Eq vti 2.2 cm??? AV Area Cont Eq pk 2.3 cm??? MV Peak Velocity 177.2 cm/s MV Peak Gradient 12.6 mmHg MV Mean Velocity 99.5 cm/s MV Mean Gradient 4.9 mmHg MV Velocity Time Integral 41.7 cm MR Peak Velocity 434.7 cm/s MR Peak Gradient 75.6 mmHg Mitral E Point Velocity 189.8 cm/s Mitral A Point Velocity 135.7 cm/s Mitral E to A Ratio 1.4 MV Deceleration Time 220.6 ms MV E' Velocity 7.9 cm/s Mitral E to MV E' Ratio 24.0 TR Peak Velocity 268.1 cm/s TR Peak Gradient 28.8 mmHg Right Ventricular Systolic Press 33.8 mmHg PV Peak Velocity 137.5 cm/s PV Peak Gradient 7.6 mmHg FINDINGS Left Ventricle Normal LV size. Mild to moderateLVH. Right Ventricle Normal right ventricular size. RVSP= 34mmHg. Right Atrium Normal right atrial size. Left Atrium Normal left atrial size. Negative agitated saline study. Mitral Valve Structurally normal mitral valve. Mild MR. Aortic Valve Aortic valve not well visualized. No aortic regurgitation. Tricuspid Valve Structurally normal tricuspid valve. Mild TR. Pulmonic Valve Structurally normal pulmonic valve. No pulmonic regurgitation. Pericardium Small global pericardial effusion best noted in apical views. Aorta Normal size aortic root. CONCLUSIONS Negative Bubble study. Mild to moderate increased left ventricular wall thickness Left ventricular ejection fraction 55-60% Mild mitral regurgitation Mild tricuspid regurgitation Small pericardial effusion with no tamponade physiology Previewed by: Dr. Azeem Avila DO (Electronically Signed) Final Date: 28 December 2023 14:20
--- NOTE | 2023-12-28 14:24 | P.PN ---
Subjective Progress Note Date: 12/28/23 I am following-up with patient and she feels about the same. She was getting dialysis upon seeing her. Objective - Vital Signs Vital signs: Vital Signs Temp 97.9 F 12/28/23 13:26 Pulse 100 12/28/23 13:26 Resp 16 12/28/23 13:26 BP 148/78 12/28/23 13:26 Pulse Ox 99 12/28/23 11:42 FiO2 60 12/27/23 07:55 Intake & Output 12/27/23 12/28/23 12/28/23 18:59 06:59 18:59 Intake Total 1077 910 Output Total 3900 Balance -2823 910 Weight 83.915 kg 87.9 kg 87.9 kg Intake: Intake, IV Titration 197 Amount Nitroglycerin-D5w Pmx 50 197 mg In Dextrose/Water 1 250ml.bag @ 5 MCG/MIN 1.5 mls/hr IV .Q24H STA Rx#: [id number] Oral 480 600 Blood Product 310 Rc As-1 Unit 310 [id number] Hemodialysis 400 Output: Hemodialysis 3900 Other: Voiding Method Toilet # Voids 1 1 # Bowel Movements 1 - Exam GENERAL: The patient is lying in bed and is not in acute distress. HENT: Supple neck. NEUROLOGICAL: Higher mental function: The patient is awake, alert, oriented to self, place and time. Patient is following commands. No aphasia and no neglect. Cranial nerves: The pupils are round, right is 4mm and left is 3mm and right is sluggishly reactive to light while left is briskly reactive. Has APD over the right. Visual armendariz is legally blind over the right while left is full to confrontation throughout. Extraocular movement is intact no nystagmus is noted. Facial sensation is normal to touch throughout. The facial strength is normal throughout. Hearing is normal bilaterally to hand rub. Tongue is midline and moved [id number] without any difficulty. No dysarthria is noted. Shoulder shrug is normal bilaterally. Motor: The strength is 5 over 5 throughout. Normal tone and bulk. Cerebellum: Normal finger to nose heel to chin bilaterally. Sensation: Sensation is normal to touch throughout. Reflexes (right/left): 2+. Plantars are mute bilaterally. Spoke with the primary team and he stated at the outside hospital they thought possible stroke versus optic neuritis and was started on steroids at [facility]. Patient is afebrile. Some other workup during his hospital visit consisted of: Initial white blood cell is 30.9 thousand predominately neutrophilic. Repeat Wbc is 15.5K ESR 33 Vitamin B12: 882, folate 12.50 TSH: 7.230, free T4: 1.17 Sodium is 135, glucose is 100, calcium is 8.5, AST of [address] of the head is reported as no acute intracranial process to account for the patient's symptoms. Consider MRI for additional workup. I reviewed the CT and agree with report. Carotid duplex was reported as less than 50% stenosis of bilateral carotid bifurcation. 2D echo: Left ventricular EF 55-60%. Small pericardial effusion No tamponade physiology - Labs CBC & Chem 7: 12/28/23 06:17 12/28/23 06:17 Labs: Abnormal Lab Results - Last 24 Hours (Table) 12/27/23 12/27/23 12/27/23 Range/Units 03:46 15:52 15:52 WBC (3.8-10.6) k/uL RBC (3.80-5.40) m/uL Hgb (11.4-16.0) gm/dL Hct (34.0-46.0) % Neutrophils # (1.3-7.7) k/uL Monocytes # (0-1.0) k/uL ESR 33 H (0-20) mm/Hr Sodium (137-145) mmol/L Potassium (3.5-5.1) mmol/L BUN (7-17) mg/dL Creatinine (0.52-1.04) mg/dL Glucose (74-99) mg/dL POC Glucose (mg/dL) (70-110) mg/dL Calcium (8.4-10.2) mg/dL Iron 29 L (50-170) UG/DL % Saturation 10.00 L (12.00-45.00) C-Reactive Protein 5.7 H (<1.0) mg/dL TSH 7.230 H (0.465-4.680) mIU/L Crossmatch 12/27/23 12/27/23 12/28/23 Range/Units 16:04 20:14 05:47 WBC (3.8-10.6) k/uL RBC (3.80-5.40) m/uL Hgb (11.4-16.0) gm/dL Hct (34.0-46.0) % Neutrophils # (1.3-7.7) k/uL Monocytes # (0-1.0) k/uL ESR (0-20) mm/Hr Sodium (137-145) mmol/L Potassium (3.5-5.1) mmol/L BUN (7-17) mg/dL Creatinine (0.52-1.04) mg/dL Glucose (74-99) mg/dL POC Glucose (mg/dL) 332 H 362 H 203 H (70-110) mg/dL Calcium (8.4-10.2) mg/dL Iron (50-170) UG/DL % Saturation (12.00-45.00) C-Reactive Protein (<1.0) mg/dL TSH (0.465-4.680) mIU/L Crossmatch 12/28/23 12/28/23 12/28/23 Range/Units 06:17 06:17 09:25 WBC 15.5 H (3.8-10.6) k/uL RBC 2.16 L (3.80-5.40) m/uL Hgb 6.7 L* D (11.4-16.0) gm/dL Hct 20.9 L (34.0-46.0) % Neutrophils # 12.5 H (1.3-7.7) k/uL Monocytes # 1.2 H (0-1.0) k/uL ESR (0-20) mm/Hr Sodium 131 L (137-145) mmol/L Potassium 5.7 H (3.5-5.1) mmol/L BUN 46 H (7-17) mg/dL Creatinine 4.98 H (0.52-1.04) mg/dL Glucose 166 H (74-99) mg/dL POC Glucose (mg/dL) (70-110) mg/dL Calcium 8.2 L (8.4-10.2) mg/dL Iron (50-170) UG/DL % Saturation (12.00-45.00) C-Reactive Protein (<1.0) mg/dL TSH (0.465-4.680) mIU/L Crossmatch See Detail 12/28/23 Range/Units 11:25 WBC (3.8-10.6) k/uL RBC (3.80-5.40) m/uL Hgb (11.4-16.0) gm/dL Hct (34.0-46.0) % Neutrophils # (1.3-7.7) k/uL Monocytes # (0-1.0) k/uL ESR (0-20) mm/Hr Sodium (137-145) mmol/L Potassium (3.5-5.1) mmol/L BUN (7-17) mg/dL Creatinine (0.52-1.04) mg/dL Glucose (74-99) mg/dL POC Glucose (mg/dL) 179 H (70-110) mg/dL Calcium (8.4-10.2) mg/dL Iron (50-170) UG/DL % Saturation (12.00-45.00) C-Reactive Protein (<1.0) mg/dL TSH (0.465-4.680) mIU/L Crossmatch Assessment and Plan Assessment: This is a 33-year-old woman who has chronic history of 5 diabetes, end-stage renal disease on dialysis who presented emergency department because of shortness of breath. It seems that the on 12/10/2023 she went to outside hospital (like [place] for complete the visual loss over the right eye with eye pain and the blurry vision over the left eye and was told the she had the possible optic neuritis esses occipital stroke. Seems at the outside hospital she received IV steroids and then was transferred to to [facility] for escalation of care. She stated that she was not given a determined answer w hether was optic neuritis versus a stroke. Right eye pain with visual loss over the right eye and blurry vision of left eye: Patient was notified she had optic neuritis versus occipital stroke at the outside hospital course the patient. She had a current CT of the head and carotid duplex in our facility which were negative. History of right facial droop and dysarthria a couple months ago. The patient stated that she did not have a stroke at that time when she went to the hospital Leukocytosis is likely reactive due to steroids. Does not have fevers Dyspnea possibly due to ESRD ESRD on dialysis Chronic Diabetes Mellitus Plan: Will cancel MRI and will obtain records from outside facility especially since had recent MRI and no worse in her condition and after getting records will make further recommendation. She is on aspirin 81 mg daily as well as Lipitor 40 mg daily Nephrology and cardiology on board We'll defer the rest of the medical management to primary and other specialists On discharge recommend the patient to follow-up with a neurologist as an outpatient within 1-2 weeks The plan discussed with the patient and the primary attending Time with Patient: Less than 30
[2023-12-28 16:22] LABS: Glucose,Whole Blood 330 mg/dL (70-110)
[2023-12-28 20:11] LABS: Glucose,Whole Blood 250 mg/dL (70-110)
[2023-12-29 05:36] LABS: Glucose,Whole Blood 103 mg/dL (70-110)
[2023-12-29 08:32] LABS: Anisocytosis Slight; HGB 7.6 gm/dL (11.4-16.0); MCHC 32.8 g/dL (31.0-37.0); MCV 94.3 fL (80.0-100.0); Mean Platelet Volume 8.6; Platelet Count 266 k/uL (150-450); RBC 2.44 m/uL (3.80-5.40); RDW 16.1 % (11.5-15.5); WBC 11.4 k/uL (3.8-10.6)
[2023-12-29 09:10] LABS: African American GFR (CKD) 16 (>60 ml/min/1.73 sqM); Anion Gap 8 mmol/L; Blood Urea Nitrogen 34 mg/dL (7-17); Calcium 8.9 mg/dL (8.4-10.2); Carbon Dioxide 25 mmol/L (22-30); Chloride 100 mmol/L (98-107); Glucose 99 mg/dL (74-99); Non-African American GFR(CKD) 14 (>60 ml/min/1.73 sqM); Potassium 5.3 mmol/L (3.5-5.1); Sodium 133 mmol/L (137-145)
[2023-12-29 11:32] LABS: Glucose,Whole Blood 239 mg/dL (70-110)
--- NOTE | 2023-12-29 12:32 | P.PN ---
Subjective Progress Note Date: 12/29/23 Hospital Course: 33-year-old female with ESRD on hemodialysis, type 1 diabetes, hypertension, dyslipidemia presenting with acute on chronic shortness of breath. She first discovered about renal disease when she became , and subsequently was preeclamptic at the later stages of . She was started on hemodialysis 1 month prior to delivery. She remained on hemodialysis ever since. She u nderwent workup, and currently planning on getting pancreatic and renal transplant at [facility]. However, 3 weeks ago, she developed sudden onset bilateral vision loss. She initially presented to [facility], and was transferred to [facility]. She claims that workup at that hospital showed possible infection of the eye, was started on IV antibiotics and later discharged on oral antibiotics. She was only home for 1 day before she started developing worsening shortness of breath, and presented back to our facility. In the emergency room, patient was afebrile, 148/91, heart rate 85, 98% on nasal cannula. Upon initial arrival, patient was 210/140 and BiPAP dependent with a heart rate in the 130's and was started on a nitroglycerin drip which improved her blood pressure and heart rate. CBC demonstrated leukocytosis at 30.9, hemoglobin of 8.2. Chemistry shows sodium of 135, potassium is 6.3, BUN of 71, creatinine of 6.93, total protein of 5.7, albumin of 3.1, procalcitonin 1.23. VBG showed pH of 7.48, pCO2 of 33, coags were unremarkable. Influenza A, B, RSV, COVID were negative. Chest x-ray demonstrated cardiomegaly with diffuse interstitial infiltrates scattered throughout the lungs. EKG demonstrated sinus tachycardia with a short MN interval, no ischemic changes. No peaked T waves. Nephrology and neurology were consulted. Currently pending records from [facility] as well as ophthalmology is consulted. Subjective: Patient seen and examined at bedside. No acute events overnight. Shortness of breath slightly improved with BiPAP Pertinent positives and negatives as discussed above, a complete review of systems was performed and all other systems are negative. Vitals Signs Reviewed. General: Nontoxic, no distress, appears at stated age Derm: Warm, dry Head: Atraumatic, normocephalic, symmetric Eyes: Reduced visual acuity bilaterally, worse on the left, pupils equal and reactive to light Mouth: No lip lesion, mucus membranes moist Cardiovascular: S1S2 reg, no murmur Lungs: Bilateral rales , no accessory muscle use, on BiPAP Abdominal: Soft, nontender to palpation, no guarding, no appreciable organomegaly Ext: No gross muscle atrophy, 2+ pitting edema, no contractures Neuro: CN II-XI grossly intact, no focal neuro deficits Psych: Alert, oriented, appropriate affect Data Reviewed Today: Pertinent Labs: WBC 11.4, hemoglobin 7.6, potassium 5.3, sodium 133, creatinine 4.08, blood sugars range between 99-2 50 Imaging: Brain CT did not show any acute process. Carotid Dopplers did not show any significant stenosis. Assessment and Plan: Patient is severely ill, needs close monitoring, prognosis guarded. Active: Acute hypoxic respiratory failure Acute pulmonary edema ESRD on hemodialysis Hyperkalemia Hypertensive urgency Anemia of chronic disease, hemoglobin improved, status post 1 unit of PRBC -Nephrology following, continue hemodialysis, also on aranesp -No active bleeding -Continue to wean oxygen -Blood pressure better on oral Coreg 25 twice daily, hydralazine 100 3 times daily, nifedipine 60 daily -Was on nitroglycerin drip in the ER, now discontinued Subacute bilateral vision loss -Pending records from [facility] -Discussed management with neurology, awaiting records -Ophthalmology consulted Type 1 diabetes -Levemir 25 units daily, sliding scale insulin, monitor for hypoglycemia Chronic: Depression GERD Hypothyroidism Dyslipidemia DVT ppx: SCDs Code status: Full code Anticipated discharge place: Pending clinical course Anticipated discharge time: Pending clinical course Objective - Vital Signs Vital signs: Vital Signs Temp 98.0 F 12/29/23 07:59 Pulse 94 12/29/23 07:59 Resp 17 12/29/23 07:59 BP 155/79 12/29/23 07:59 Pulse Ox 97 12/29/23 07:59 FiO2 60 12/29/23 11:39 Intake & Output 12/28/23 12/29/23 12/29/23 18:59 06:59 18:59 Intake Total 910 240 240 Balance 910 240 240 Weight 87.9 kg 85.4 kg Intake: Oral 600 240 240 Blood Product 310 Rc As-1 Unit 310 [id number] Other: Voiding Method Toilet Toilet Toilet # Voids 1 1 1 # Bowel Movements 1 - Labs CBC & Chem 7: 12/29/23 07:37 12/29/23 07:37 Labs: Abnormal Lab Results - Last 24 Hours (Table) 12/28/23 12/28/23 12/28/23 Range/Units 09:25 16:19 20:08 WBC (3.8-10.6) k/uL RBC (3.80-5.40) m/uL Hgb (11.4-16.0) gm/dL Hct (34.0-46.0) % RDW (11.5-15.5) % Sodium (137-145) mmol/L Potassium (3.5-5.1) mmol/L BUN (7-17) mg/dL Creatinine (0.52-1.04) mg/dL POC Glucose (mg/dL) 330 H 250 H (70-110) mg/dL Crossmatch See Detail 12/29/23 12/29/23 12/29/23 Range/Units 07:37 07:37 11:30 WBC 11.4 H (3.8-10.6) k/uL RBC 2.44 L (3.80-5.40) m/uL Hgb 7.6 L (11.4-16.0) gm/dL Hct 23.0 L (34.0-46.0) % RDW 16.1 H (11.5-15.5) % Sodium 133 L (137-145) mmol/L Potassium 5.3 H (3.5-5.1) mmol/L BUN 34 H (7-17) mg/dL Creatinine 4.08 H (0.52-1.04) mg/dL POC Glucose (mg/dL) 239 H (70-110) mg/dL Crossmatch
--- NOTE | 2023-12-29 12:42 | P.PN ---
Subjective Patient is seen in follow-up for end-stage renal disease. She is maintained on hemodialysis on Wednesday schedule. No problems with dialysis yesterday. Hemoglobin improved. No active bleeding. Vital signs are stable. General: No acute distress. HEENT: Head exam is unremarkable. On nasal cannula. LUNGS: No audible rhonchi or wheezes. HEART: Rate and Rhythm are regular. ABDOMEN: Nontender. EXTREMITITES: 1+ edema. Objective - Vital Signs Vital signs: Vital Signs Temp 98.0 F 12/29/23 07:59 Pulse 91 12/29/23 12:34 Resp 17 12/29/23 12:34 BP 167/90 12/29/23 12:34 Pulse Ox 97 12/29/23 12:34 FiO2 60 12/29/23 11:39 Intake & Output 12/28/23 12/29/23 12/29/23 18:59 06:59 18:59 Intake Total 910 240 240 Balance 910 240 240 Weight 87.9 kg 85.4 kg Intake: Oral 600 240 240 Blood Product 310 Rc As-1 Unit 310 [id number] Other: Voiding Method Toilet Toilet Toilet # Voids 1 1 1 # Bowel Movements 1 - Labs CBC & Chem 7: 12/29/23 07:37 12/29/23 07:37 Labs: Abnormal Lab Results - Last 24 Hours (Table) 12/28/23 12/28/23 12/28/23 Range/Units 09:25 16:19 20:08 WBC (3.8-10.6) k/uL RBC (3.80-5.40) m/uL Hgb (11.4-16.0) gm/dL Hct (34.0-46.0) % RDW (11.5-15.5) % Sodium (137-145) mmol/L Potassium (3.5-5.1) mmol/L BUN (7-17) mg/dL Creatinine (0.52-1.04) mg/dL POC Glucose (mg/dL) 330 H 250 H (70-110) mg/dL Crossmatch See Detail 12/29/23 12/29/23 12/29/23 Range/Units 07:37 07:37 11:30 WBC 11.4 H (3.8-10.6) k/uL RBC 2.44 L (3.80-5.40) m/uL Hgb 7.6 L (11.4-16.0) gm/dL Hct 23.0 L (34.0-46.0) % RDW 16.1 H (11.5-15.5) % Sodium 133 L (137-145) mmol/L Potassium 5.3 H (3.5-5.1) mmol/L BUN 34 H (7-17) mg/dL Creatinine 4.08 H (0.52-1.04) mg/dL POC Glucose (mg/dL) 239 H (70-110) mg/dL Crossmatch Assessment and Plan Plan: Assessment: 1. End-stage renal disease maintained on hemodialysis on Wednesday schedule via right chest permacath. Has a PD catheter but still needs to be trained. 2. Acute hypoxic respiratory failure. 3. Volume overload. Improving with ultrafiltration. 4. Type 1 diabetes mellitus. 5. Impaired vision due to CVA versus optic neuritis. Neurology following. 6. Hypertension with chronic kidney disease. 7. Hyperkalemia secondary to chronic kidney disease. Improved postdialysis. 8. Anemia of chronic kidney disease. Status post blood transfusion this admission. On . Plan: Hemodialysis today and again tomorrow. Phosphorus level 4.1 dated December 28, 2023.
--- NOTE | 2023-12-29 14:31 | P.PN ---
Subjective Progress Note Date: 12/29/23 I am following-up with patient and is on BiPAP. The primary consulted Ophthamology team and his office notified the nurse that she is known to them and had cauterization of eye in past and it seems needs to follow-up as outpatient. Objective - Vital Signs Vital signs: Vital Signs Temp 98.0 F 12/29/23 07:59 Pulse 91 12/29/23 12:34 Resp 17 12/29/23 12:34 BP 167/90 12/29/23 12:34 Pulse Ox 97 12/29/23 12:34 FiO2 60 12/29/23 11:39 Intake & Output 12/28/23 12/29/23 12/29/23 18:59 06:59 18:59 Intake Total 910 240 480 Balance 910 240 480 Weight 87.9 kg 85.4 kg Intake: Oral 600 240 480 Blood Product 310 Rc As-1 Unit 310 [id number] Other: Voiding Method Toilet Toilet Toilet # Voids 1 1 1 # Bowel Movements 1 - Exam GENERAL: The patient is lying in bed and is not in acute distress. HENT: Supple neck. NEUROLOGICAL: Is sleeping and has BiPAP on. Spoke with the primary team and he stated at the outside hospital they thought possible stroke versus optic neuritis and was started on steroids at [facility]. Patient is afebrile. Some other workup during his hospital visit consisted of: Initial white blood cell is 30.9 thousand predominately neutrophilic. Repeat Wbc is 15.5K ESR 33 Vitamin B12: 882, folate 12.50 TSH: 7.230, free T4: 1.17 Sodium is 135, glucose is 100, calcium is 8.5, AST of [address] of the head is reported as no acute intracranial process to account for the patient's symptoms. Consider MRI for additional workup. I reviewed the CT and agree with report. Carotid duplex was reported as less than 50% stenosis of bilateral carotid bifurcation. 2D echo: Left ventricular EF 55-60%. Small pericardial effusion No tamponade physiology - Labs CBC & Chem 7: 12/29/23 07:37 12/29/23 07:37 Labs: Abnormal Lab Results - Last 24 Hours (Table) 12/28/23 12/28/23 12/29/23 Range/Units 16:19 20:08 07:37 WBC 11.4 H (3.8-10.6) k/uL RBC 2.44 L (3.80-5.40) m/uL Hgb 7.6 L (11.4-16.0) gm/dL Hct 23.0 L (34.0-46.0) % RDW 16.1 H (11.5-15.5) % Sodium (137-145) mmol/L Potassium (3.5-5.1) mmol/L BUN (7-17) mg/dL Creatinine (0.52-1.04) mg/dL POC Glucose (mg/dL) 330 H 250 H (70-110) mg/dL 12/29/23 12/29/23 Range/Units 07:37 11:30 WBC (3.8-10.6) k/uL RBC (3.80-5.40) m/uL Hgb (11.4-16.0) gm/dL Hct (34.0-46.0) % RDW (11.5-15.5) % Sodium 133 L (137-145) mmol/L Potassium 5.3 H (3.5-5.1) mmol/L BUN 34 H (7-17) mg/dL Creatinine 4.08 H (0.52-1.04) mg/dL POC Glucose (mg/dL) 239 H (70-110) mg/dL Assessment and Plan Assessment: This is a 33-year-old woman who has chronic history of 5 diabetes, end-stage renal disease on dialysis who presented emergency department because of shortness of breath. It seems that the on 12/10/2023 she went to outside hospital (like [place] for complete the visual loss over the right eye with eye pain and the blurry vision over the left eye and was told the she had the possible optic neuritis esses occipital stroke. Seems at the outside hospital she received IV steroids and then was transferred to to [facility] for escalation of care. She stated that she was not given a determined answer whether was optic neuritis versus a stroke. Right eye pain with visual loss over the right eye and blurry vision of left eye: Patient was notified she had optic neuritis versus occipital stroke at the outside hospital course the patient. She had a current CT of the head and carotid duplex in our facility which were negative. History of right facial droop and dysarthria a couple months ago. The patient stated that she did not have a stroke at that time when she went to the hospital Leukocytosis is likely reactive due to steroids. Does not have fevers Dyspnea possibly due to ESRD ESRD on dialysis Chronic Diabetes Mellitus Plan: MRI Brain was cancelled and since had recent MRI and no worse in her condition. Pending records from outside facility and after getting records will make further recommendation. Ophthamologist is consulted (Dr. Moncada) and his staff notified our nurse that she is known to them and she had cauterization of eyes. She is on aspirin 81 mg daily as well as Lipitor 40 mg daily Nephrology and cardiology on board We'll defer the rest of the medical management to primary and other specialists Upon discharge recommend the patient to follow-up with a neurologist as an outpatient within 1-2 weeks and continue to follow-up with her [employer]. The plan discussed with the primary attending. Time with Patient: Less than 30
[2023-12-29] MEDS: ONDANSETRON 4 MG/2 ML VIAL IVP PRN (14:47)
[2023-12-29 16:34] LABS: Glucose,Whole Blood 181 mg/dL (70-110)
[2023-12-29 20:06] LABS: Glucose,Whole Blood 125 mg/dL (70-110)
[2023-12-30 05:53] LABS: Glucose,Whole Blood 110 mg/dL (70-110)
--- NOTE | 2023-12-30 09:02 | P.CRDCN ---
History of Present Illness Reason for Consult (text): Recent acute/subacute occipital infarct needs HAYDER and event monitor Chief complaint: WAQAR History of present illness: History of present illness: This is a 33-year-old female patient of Dr. Avila with past medical history of diabetes type 1 since age of 6, hypertension uncontrolled, end-stage renal disease on hemodialysis, dyslipidemia, hypothyroidism, depression, anxiety. We have been asked to evaluate the patient for recent acute/subacute occipital infarct needing HAYDER and event monitor. Patient states that she developed sudden onset blindness in the right eye and went [facility] December 10. She had an MRI initially showed a small area of infarct followed by a second MRI that did show expansion of this infarct area. Patient continues to have blindness in the right eye and thus this HAYDER requested. Patient states she presented to [facility] on 12/27 for sudden onset of shortness of breath that started Wednesday after she went to bed. She states her breathing Getting worse like she was drowning and it got to the point where she was passing out before EMS arrived. Patient states that HAYDER was not done at [facility]. EKG performed on 12/27 sinus rhythm with ventricular rate of 126 bpm Chest x-ray: Multifocal pneumonia CAT scan of the brain no acute intracranial process Carotid duplex less than 50% stenosis of bilateral carotid bifurcations Echocardiogram performed on 12/28/2023:Negative bubble study. Mild to moderate increase left ventricular wall thickness. EF 55 to 60%, mild mitral regurgitation, mild tricuspid regurgitation. Small pericardial effusion with no tamponade physiology WBC 11.4, hemoglobin 7.6, platelet count 266. Sodium 133, potassium 5.3, BUN 34 and 4.08. proBNP 37,200. Albumin 3.1. Troponin negative x 1. Influenza A, influenza B, RSV, COVID-19 not detected. Home cardiac medications: Aspirin 81 mg daily, atorvastatin 40 mg at bedtime, Coreg 25 mg twice daily, Plavix 75 mg daily, Depakote 500 mg twice daily, hydralazine 100 mg 3 times daily, Procardia 60 mg daily, also on levothyroxine 175 mcg daily. Review Of Systems: At the time of my exam: CONSTITUTIONAL: Denies fever or chills. HEENT: Reports loss of vision in the right eye, or eye pain. Denies hemoptysis CARDIOVASCULAR: Denies chest pain. Denies orthopnea. Denies PND. Denies palpitations RESPIRATORY: Reported shortness of breath. GASTROINTESTINAL: Denies abdominal pain. Denies nausea or vomiting. HEMATOLOGIC: Denies bleeding disorders. GENITOURINARY: Denies any blood in urine. SKIN: Denies pruitis. Denies rash. Physical examination: Gen: This is a 33-year-old female appears to be in no acute distress VS: reviewed HEENT: Head is atraumatic, normocephalic. Pupils equal, round. Sclerae is anicteric. NECK: Supple. No JVD. LUNGS: Clear to auscultation. No wheezes or rhonchi. No intercostal retractions. HEART: Regular rate and rhythm. No murmur. ABDOMEN: Soft No tenderness. EXTREMITIES: 2+ pedal edema. No calf tenderness. NEUROLOGICAL: Patient is awake, alert and oriented x3. Assessment: Subacute stroke Bilateral vision loss Acute hypoxic respiratory failure Acute pulmonary edema End-stage renal disease on hemodialysis Diabetes mellitus type 1 Hypertension Plan: Continue patient's current cardiac medications Patient to be scheduled for HAYDER tomorrow with Dr. Avila N.p.o. after midnight Thank you kindly for this consultation. Nurse practitioner note has been reviewed, I agree with documented findings and plan of care. Patient was seen and examined. Past Medical History Past Medical History: Diabetes Mellitus, GERD/Reflux, Hypertension, Renal Disease, Seizure Disorder, Thyroid Disorder Additional Past Medical History / Comment(s): Neuropathy, last seizure 2020, gastroparesis, headaches with dialysis, states "fast heart rate" since giving ., receives Hemodialysis Wednesday- and Saturdays at [facility] right chest hemodialysis catheter., severe HTN. patient awaiting Kidney and Pancrease Transplant. , states sometimes she has had stroke -like symptoms but no stroke., hx of c-diff 2013. History of Any Multi-Drug Resistant Organisms: None Reported Date of last positivie culture/infection: 2013 MDRO Source:: stool Past Surgical History: Adenoidectomy, Section, Cholecystectomy, Orthopedic Surgery, Tonsillectomy Additional Past Surgical History / Comment(s): 2 KNEE SCOPES, EAR TUBES, addit ional left knee surgery related to fracture, new port a cath jul 29, eye surgeries for diabetic retinopathy. Past Anesthesia/Blood Transfusion Reactions: Previous Problems w/ Anesthesia Additional Past Anesthesia/Blood Transfusion Reaction / Comment(s): confusion Past Psychological History: Anxiety, Depression Smoking Status: Former smoker Past Alcohol Use History: None Reported Past Drug Use History: Marijuana, Methamphetamine - Past Family History Father Family Medical History: Unable to Obtain Mother Family Medical History: No Reported History Grandfather Additional Family Medical History / Comment(s): Diabetes mellitus type 2 Medications and Allergies Home Medications Medication Instructions Recorded Confirmed Type Aspirin 81 mg PO DAILY #30 tab 08/02/23 12/27/23 Rx Insulin Glargine,Hum.rec.anlog 25 units SQ DAILY@1330 10/22/23 12/27/23 History [Lantus Solostar Pen] Levothyroxine Sodium [Synthroid] 175 mcg PO DAILY 10/22/23 12/27/23 History Sertraline [Zoloft] 200 mg PO DAILY 10/22/23 12/27/23 History HYDROcodone/APAP 5-325MG [Boelus 1 tab PO Q6HR PRN 3 Days #12 tab 10/25/23 12/27/23 Rx 5-325] Atorvastatin [Lipitor] 40 mg PO HS 12/27/23 12/27/23 History Clopidogrel [Plavix] 75 mg PO DAILY 12/27/23 12/27/23 History Divalproex ER [Depakote ER] 500 mg PO BID 12/27/23 12/27/23 History INSULIN LISPRO (humaLOG) [humaLOG] See Protocol SQ AC-TID PRN 12/27/23 12/27/23 History Lidocaine 5% Patch [Lidoderm] 1 patch TOPICAL BID 12/27/23 12/27/23 History NIFEdipine [Adalat CC] 60 mg PO DAILY 12/27/23 12/27/23 History Ondansetron [Zofran] 4 mg PO Q8HR PRN 12/27/23 12/27/23 History Pantoprazole [Protonix] 40 mg PO DAILY 12/27/23 12/27/23 History Augustine Caps 1 cap PO HS 12/27/23 12/27/23 History Sulfamethox-Tmp 800-160Mg [Bactrim 1 tab PO DAILY 12/27/23 12/27/23 History DS 800-160 mg] carvediloL [Coreg] 25 mg PO BID 12/27/23 12/27/23 History hydrALAZINE HCL [Apresoline] 100 mg PO TID 12/27/23 12/27/23 History methocarbamoL [Robaxin-750] 750 mg PO QID 12/27/23 12/27/23 History Allergies Allergy/AdvReac Type Severity Reaction Status Date / Time hydromorphone HCl Allergy Anaphylaxis Verified 12/27/23 08:39 [From Dilaudid] ibuprofen [From Motrin] Allergy unable to Verified 12/27/23 08:39 take due to kidney disease propoxyphene Allergy Rash/Hives Verified 12/27/23 08:39 [From Darvocet-N] tramadol Allergy Anaphylaxis Verified 12/27/23 08:39 venom-honey bee Allergy passes out Verified 12/27/23 08:39 [bee venom (honey bee)] Physical Exam Vitals: Vital Signs Temp Pulse Pulse Resp BP Pulse Ox FiO2 12/30/23 04:30 80 16 175/95 96 12/30/23 03:39 60 12/29/23 23:31 80 18 154/84 100 12/29/23 23:27 60 12/29/23 20:00 98.0 F 92 96 18 145/76 96 12/29/23 16:00 98.2 F 82 100 20 151/78 100 12/29/23 15:29 60 12/29/23 15:15 89 98 18 169/69 12/29/23 12:34 91 17 167/90 97 12/29/23 11:39 60 12/29/23 08:35 60 12/29/23 07:59 98.0 F 94 17 155/79 97 Intake and Output 12/29/23 12/30/23 12/30/23 22:59 06:59 14:59 Intake Total 680 Output Total 1999 Balance -1320 Intake: Oral 180 Hemodialysis 500 Output: Hemodialysis 1999 Other: Voiding Method Toilet Toilet # Voids 1 Weight 84.1 kg Results 12/29/23 07:37 12/29/23 07:37 CBC 12/29/23 Range/Units 07:37 WBC 11.4 H (3.8-10.6) k/uL RBC 2.44 L (3.80-5.40) m/uL Hgb 7.6 L (11.4-16.0) gm/dL Hct 23.0 L (34.0-46.0) % Plt Count 266 (150-450) k/uL Comprehensive Metabolic Panel 12/29/23 Range/Units 07:37 Sodium 133 L (137-145) mmol/L Potassium 5.3 H (3.5-5.1) mmol/L Chloride 100 (98-107) mmol/L Carbon Dioxide 25 (22-30) mmol/L BUN 34 H (7-17) mg/dL Creatinine 4.08 H (0.52-1.04) mg/dL Glucose 99 (74-99) mg/dL Calcium 8.9 (8.4-10.2) mg/dL Current Medications Generic Name Dose Route Start Last Admin Trade Name Freq PRN Reason Stop Dose Admin Hydrocodone Bitart/Acetaminophen 1 each 12/27/23 10:34 12/30/23 00:41 Hydrocodone/Apap 5-325mg 1 Each Tab PO 1 each Q6HR PRN Administration Pain Aspirin 81 mg 12/27/23 09:00 12/29/23 08:03 Aspirin 81 Mg PO 81 mg DAILY VY Administration Atorvastatin Calcium 40 mg 12/27/23 21:00 12/29/23 20:46 Atorvastatin 40 Mg Tab PO 40 mg HS VY Administration Carvedilol 25 mg 12/27/23 10:45 12/30/23 06:52 Carvedilol 12.5 Mg Tab PO 25 mg BID-W/MEALS VY Administration Clopidogrel Bisulfate 75 mg 12/28/23 09:00 12/29/23 08:03 Clopidogrel 75 Mg Tab PO 75 mg DAILY VY Administration Darbepoetin Artur 40 mcg 12/28/23 12:00 12/28/23 13:05 Darbepoetin Artur 40 Mcg/0.4 Ml Syringe SQ 40 mcg Q7D VY Administration Divalproex Sodium 500 mg 12/27/23 21:00 12/29/23 20:46 Divalproex Er 500 Mg Tab.Er.24h PO 500 mg BID VY Administration Hydralazine HCl 100 mg 12/27/23 10:45 12/29/23 20:46 Hydralazine Hcl 50 Mg Tab PO 100 mg TID VY Administration Insulin Aspart 0 unit 12/27/23 17:30 12/30/23 05:59 Insulin Aspart (Novolog) 100 Unit/Ml Vial SQ Not Given AC-TID [facility] Protocol Insulin Detemir 25 unit 12/27/23 13:30 12/29/23 13:13 Insulin Detemir (Levemir) 100 Unit/Ml Syr SQ 25 unit DAILY@1330 VY Administration Labetalol HCl 10 mg 12/27/23 10:36 Labetalol 5 Mg/Ml Vial Mdv IVP Q1H PRN Blood Pressure - High Levothyroxine Sodium 176 mcg 12/28/23 06:30 12/30/23 06:52 Levothyroxine 88 Mcg Tab PO 176 mcg DAILY@0630 VY Administration Lidocaine 1 patch 12/27/23 21:00 12/29/23 20:39 Lidocaine 4% Patch TOPICAL Not Given BID VY Methocarbamol 750 mg 12/27/23 13:00 12/29/23 20:46 Methocarbamol 750 Mg Tab PO 750 mg QID VY Administration Morphine Sulfate 2 mg 12/27/23 09:20 12/30/23 04:31 Morphine Sulfate 2 Mg/Ml Syringe IVP 2 mg Q4HR PRN Administration Pain/Discomfort Multivit/Ca Carb/B Cmplx/FA/Prenat 1 each 12/27/23 21:00 12/29/23 20:46 Folic Acid-Vit B Complex-Vit C 1 Cap PO 1 each HS VY Administration Nifedipine 60 mg 12/27/23 10:45 12/29/23 08:03 Nifedipine Xl 60 Mg Tab.Er.24 PO Not Given DAILY [facility] Ondansetron HCl 4 mg 12/29/23 13:58 12/29/23 14:47 Ondansetron 4 Mg/2 Ml Vial IVP 4 mg Q6HR PRN Administration Nausea And Vomiting Pantoprazole Sodium 40 mg 12/28/23 07:30 12/30/23 06:52 Pantoprazole 40 Mg Tablet PO 40 mg AC-BRKFST VY Administration Sertraline HCl 200 mg 12/28/23 09:00 12/29/23 08:03 Sertraline 100 Mg Tab PO 200 mg DAILY VY Administration Sodium Chloride 10 ml 12/27/23 09:00 12/29/23 20:47 Sodium Chloride 0.9% Flush 10 Ml Syringe IV 10 ml BID VY Administration Intake and Output 12/29/23 12/30/23 12/30/23 22:59 06:59 14:59 Intake Total 680 Output Total 1999 Balance -1320 Intake: Oral 180 Hemodialysis 500 Output: Hemodialysis 1999 Other: Voiding Method Toilet Toilet # Voids 1 Weight 84.1 kg 12/29/23 07:37 12/29/23 07:37
[2023-12-30 09:25] LABS: Basophils % (A) 0 %; Eosinophils # (A) 0.3 k/uL (0-0.7); Eosinophils % (A) 3 %; HCT 22.3 % (34.0-46.0); Lymphocytes # (A) 1.5 k/uL (1.0-4.8); Lymphocytes % (A) 15 %; MCH 29.9 pg (25.0-35.0); MCHC 31.5 g/dL (31.0-37.0); Mean Platelet Volume 8.7; Monocytes # (A) 0.7 k/uL (0-1.0); Monocytes % (A) 7 %; Neutrophils # (A) 7.4 k/uL (1.3-7.7); Neutrophils % (A) 73 %; Platelet Count 296 k/uL (150-450); RBC 2.35 m/uL (3.80-5.40); RDW 15.9 % (11.5-15.5); WBC 10.1 k/uL (3.8-10.6)
[2023-12-30 09:53] LABS: African American GFR (CKD) 14 (>60 ml/min/1.73 sqM); Anion Gap 6 mmol/L; Blood Urea Nitrogen 34 mg/dL (7-17); Calcium 8.8 mg/dL (8.4-10.2); Carbon Dioxide 29 mmol/L (22-30); Chloride 99 mmol/L (98-107); Glucose 159 mg/dL (74-99); Non-African American GFR(CKD) 12 (>60 ml/min/1.73 sqM); Potassium 5.4 mmol/L (3.5-5.1); Sodium 134 mmol/L (137-145)
--- NOTE | 2023-12-30 10:19 | P.PN ---
Subjective Patient is seen in follow-up for end-stage renal disease. She is maintained on hemodialysis on Wednesday schedule. No problems with dialysis yesterday. Currently seen while undergoing dialysis. Hemoglobin 7.0. Vital signs are stable. General: No acute distress. HEENT: Head exam is unremarkable. On nasal cannula. LUNGS: No audible rhonchi or wheezes. HEART: Rate and Rhythm are regular. ABDOMEN: Nontender. EXTREMITITES: 1+ edema. Objective - Vital Signs Vital signs: Vital Signs Temp 98.0 F 12/30/23 08:00 Pulse 86 12/30/23 08:00 Resp 16 12/30/23 08:00 BP 160/88 12/30/23 08:00 Pulse Ox 93 L 12/30/23 09:18 FiO2 60 12/30/23 03:39 Intake & Output 12/29/23 12/30/23 12/30/23 18:59 06:59 18:59 Intake Total 1160 222 Output Total 1999 Balance -840 222 Weight 84.1 kg Intake: Oral 660 222 Hemodialysis 500 Output: Hemodialysis 1999 Other: Voiding Method Toilet Toilet # Voids 1 1 - Labs CBC & Chem 7: 12/30/23 08:05 12/30/23 08:05 Labs: Abnormal Lab Results - Last 24 Hours (Table) 12/29/23 12/29/23 12/29/23 Range/Units 11:30 16:33 20:04 RBC (3.80-5.40) m/uL Hgb (11.4-16.0) gm/dL Hct (34.0-46.0) % RDW (11.5-15.5) % Sodium (137-145) mmol/L Potassium (3.5-5.1) mmol/L BUN (7-17) mg/dL Creatinine (0.52-1.04) mg/dL Glucose (74-99) mg/dL POC Glucose (mg/dL) 239 H 181 H 125 H (70-110) mg/dL 12/30/23 12/30/23 Range/Units 08:05 08:05 RBC 2.35 L (3.80-5.40) m/uL Hgb 7.0 L (11.4-16.0) gm/dL Hct 22.3 L (34.0-46.0) % RDW 15.9 H (11.5-15.5) % Sodium 134 L (137-145) mmol/L Potassium 5.4 H (3.5-5.1) mmol/L BUN 34 H (7-17) mg/dL Creatinine 4.39 H (0.52-1.04) mg/dL Glucose 159 H (74-99) mg/dL POC Glucose (mg/dL) (70-110) mg/dL Assessment and Plan Plan: Assessment: 1. End-stage renal disease maintained on hemodialysis on Wednesday schedule via right chest permacath. Has a PD catheter but still needs to be trained. PD catheter will be removed if no improvement in her vision. 2. Acute hypoxic respiratory failure. 3. Volume overload. Improving with ultrafiltration. 4. Type 1 diabetes mellitus. 5. Impaired vision due to CVA versus optic neuritis. Neurology following. 6. Hypertension with chronic kidney disease. 7. Hyperkalemia secondary to chronic kidney disease. Expect improvement postdialysis. 8. Anemia of chronic kidney disease. Status post blood transfusion this admission. On . Plan: Hemodialysis today and again tomorrow. Phosphorus level 4.1 dated December 28, 2023. HAYDER tomorrow. Low potassium diet And Lokelma 10 g once daily. Increase nifedipine to 60 mg twice daily. Hold hydralazine for systolic blood pressure less than 120.
[2023-12-30 11:28] LABS: Glucose,Whole Blood 219 mg/dL (70-110)
--- NOTE | 2023-12-30 12:13 | P.PN ---
Subjective Progress Note Date: 12/30/23 Hospital Course: 33-year-old female with ESRD on hemodialysis, type 1 diabetes, hypertension, dyslipidemia presenting with acute on chronic shortness of breath. She first discovered about renal disease when she became , and subsequently was preeclamptic at the later stages of . She was started on hemodialysis 1 month prior to delivery. She remained on hemodialysis ever since. She u nderwent workup, and currently planning on getting pancreatic and renal transplant at [facility]. However, 3 weeks ago, she developed sudden onset bilateral vision loss. She initially presented to [facility], and was transferred to [facility]. She claims that workup at that hospital showed possible infection of the eye, was started on IV antibiotics and later discharged on oral antibiotics. She was only home for 1 day before she started developing worsening shortness of breath, and presented back to our facility. In the emergency room, patient was afebrile, 148/91, heart rate 85, 98% on nasal cannula. Upon initial arrival, patient was 210/140 and BiPAP dependent with a heart rate in the 130's and was started on a nitroglycerin drip which improved her blood pressure and heart rate. CBC demonstrated leukocytosis at 30.9, hemoglobin of 8.2. Chemistry shows sodium of 135, potassium is 6.3, BUN of 71, creatinine of 6.93, total protein of 5.7, albumin of 3.1, procalcitonin 1.23. VBG showed pH of 7.48, pCO2 of 33, coags were unremarkable. Influenza A, B, RSV, COVID were negative. Chest x-ray demonstrated cardiomegaly with diffuse interstitial infiltrates scattered throughout the lungs. EKG demonstrated sinus tachycardia with a short IN interval, no ischemic changes. No peaked T waves. Nephrology and neurology were consulted. Records from [facility]: Patient had dental caries with some facial cellulitis, for which she received antibiotics. Periorbital edema was also noted, unlikely to be infectious. Optic neuritis was ruled out. Patient was seen to have vitreous hemorrhage on the right, probable cause for her worsening right-sided vision. MRI brain also showed small area of infarct in the right occipital lobe. TTE did not show any vegetation or intracardiac shunt. Patient did not get a HAYDER or an event monitor. Cardiology consulted for further workup. Subjective: Patient seen and examined at bedside. No acute events overnight. Shortness of breath have improved. Pertinent positives and negatives as discussed above, a complete review of systems was performed and all other systems are negative. Vitals Signs Reviewed. General: Nontoxic, no distress, appears at stated age Derm: Warm, dry Head: Atraumatic, normocephalic, symmetric Eyes: Reduced visual acuity bilaterally, worse on the left, pupils equal and reactive to light Mouth: No lip lesion, mucus membranes moist Cardiovascular: S1S2 reg, no murmur Lungs: Bilateral rales , no accessory muscle use, on BiPAP Abdominal: Soft, nontender to palpation, no guarding, no appreciable organomegaly Ext: No gross muscle atrophy, 2+ pitting edema, no contractures Neuro: CN II-XI grossly intact, no focal neuro deficits Psych: Alert, oriented, appropriate affect Data Reviewed Today: Pertinent Labs: WBC 10.1, hemoglobin 7, potassium 5.4, creatinine 4.39, blood sugars range between 1 10-2 19 Imaging: Brain CT did not show any acute process. Carotid Dopplers did not show any significant stenosis. Assessment and Plan: Patient is severely ill, needs close monitoring, prognosis guarded. Active: Acute hypoxic respiratory failure Acute pulmonary edema ESRD on hemodialysis Hyperkalemia Hypertensive urgency Anemia of chronic disease, hemoglobin improved, status post 1 unit of PRBC -Nephrology note reviewed, hemodialysis today and tomorrow, low potassium diet, Lokelma 10 g once daily, nifedipine increased to 60 mg twice daily, also on aranesp -No active bleeding -Continue to wean oxygen -Blood pressure better on oral Coreg 25 twice daily, hydralazine 100 3 times daily, nifedipine 60 BID -Was on nitroglycerin drip in the ER, now discontinued Subacute bilateral vision loss Right vitreous hemorrhage Small acute/subacute right occipital infarct -Discussed management with neurology, patient has been on dual antiplatelet therapy for 21 days, discontinued Plavix, continue monotherapy with aspirin, and statin. -Cardiology consulted, pending HAYDER tomorrow Type 1 diabetes -Levemir 25 units daily, sliding scale insulin, monitor for hypoglycemia Chronic: Depression GERD Hypothyroidism Dyslipidemia DVT ppx: SCDs Code status: Full code Anticipated discharge place: Pending clinical course Anticipated discharge time: Pending clinical course Objective - Vital Signs Vital signs: Vital Signs Temp 98.0 F 12/30/23 08:00 Pulse 86 12/30/23 08:00 Resp 16 12/30/23 08:00 BP 160/88 12/30/23 08:00 Pulse Ox 93 L 12/30/23 09:18 FiO2 60 12/30/23 03:39 Intake & Output 12/29/23 12/30/23 12/30/23 18:59 06:59 18:59 Intake Total 1160 222 Output Total 1999 Balance -840 222 Weight 84.1 kg Intake: Oral 660 222 Hemodialysis 500 Output: Hemodialysis 1999 Other: Voiding Method Toilet Toilet Toilet # Voids 1 1 - Labs CBC & Chem 7: 12/30/23 08:05 12/30/23 08:05 Labs: Abnormal Lab Results - Last 24 Hours (Table) 12/29/23 12/29/23 12/30/23 Range/Units 16:33 20:04 08:05 RBC 2.35 L (3.80-5.40) m/uL Hgb 7.0 L (11.4-16.0) gm/dL Hct 22.3 L (34.0-46.0) % RDW 15.9 H (11.5-15.5) % Sodium (137-145) mmol/L Potassium (3.5-5.1) mmol/L BUN (7-17) mg/dL Creatinine (0.52-1.04) mg/dL Glucose (74-99) mg/dL POC Glucose (mg/dL) 181 H 125 H (70-110) mg/dL 12/30/23 12/30/23 Range/Units 08:05 11:27 RBC (3.80-5.40) m/uL Hgb (11.4-16.0) gm/dL Hct (34.0-46.0) % RDW (11.5-15.5) % Sodium 134 L (137-145) mmol/L Potassium 5.4 H (3.5-5.1) mmol/L BUN 34 H (7-17) mg/dL Creatinine 4.39 H (0.52-1.04) mg/dL Glucose 159 H (74-99) mg/dL POC Glucose (mg/dL) 219 H (70-110) mg/dL
[2023-12-30 16:49] LABS: Glucose,Whole Blood 258 mg/dL (70-110)
--- NOTE | 2023-12-30 16:52 | P.PN ---
Subjective Progress Note Date: 12/30/23 I am following up with patient and she feels she is about the same. Denies of any new neurological issues. Patient did confirm that since she was discharged from [facility] her vision has not improved and she does not have any new neurological issues. We obtained the records from [facility]: The patient initially prior to transfer to [facility] was at outside hospital on 12/11/2023 for sudden loss of vision over the right eye associate with pain but had left facial swelling and headache. She was having floaters over the left eye for a week and a half prior to presentation. This seems the patient had CT of the face which shows soft tissue swelling with discrete fluid collection dental disease of lateral incision. MRI the brain showed acute to subacute small she was started on IV antibiotic as well as was treated with IV Solu- Medrol starting on 12/14/2023 due to concern for optic neuritis. right occipital and left semiovalve. The patient had dental caries was some facial cellulitis and she received antibiotic.. She received IV antibiotic as well as treated for IV Solu-Medrol for concern for optic neuritis She had a transthoracic echocardiogram which did not show any vegetation or intracardiac shunt. She had carotid duplex was negative for any stenosis. Patient was transferred to [facility] for neuro-ophthalmology evaluation. The ophthalmology team felt her vision issues was due to her diabetic retinopathy and vitreous hemorrhage in both eyes explained her vision change and there is a low concern for optic neuritis. The IV Solu-Medrol was discontinued. Patient had a repeat MRI and it's reported as showed increased size and progressive signal abnormality involving the small right occipital nonhemorrhagic infarct greater than 8 hours. MRV was negative for sinus thrombosis. ID was involved and there is no concern for orbital cellulitis or effective septic emboli. Objective - Vital Signs Vital signs: Vital Signs Temp 97.3 F L 12/30/23 14:14 Pulse 88 12/30/23 14:14 Resp 18 12/30/23 14:14 BP 177/94 12/30/23 14:14 Pulse Ox 98 12/30/23 12:33 FiO2 60 12/30/23 03:39 Intake & Output 12/29/23 12/30/23 12/30/23 18:59 06:59 18:59 Intake Total 1160 980 Output Total 2000 4400 Balance -840 -3420 Weight 84.1 kg Intake: Oral 660 580 Hemodialysis 500 400 Output: Hemodialysis 1999 4400 Other: Voiding Method Toilet Toilet Toilet # Voids 1 1 - Exam GENERAL: The patient is lying in bed and is not in acute distress. She is getting dialysis. NEUROLOGICAL: Higher mental function: The patient is awake, alert, oriented to self, place and time. Patient is following commands. No aphasia and no neglect. Cranial nerves: The pupils are round, right is 4mm and left is 3mm and right is sluggishly reactive to light while left is briskly reactive. Has APD over the right. Visual armendariz is legally blind over the right while left is full to confrontation throughout. Extraocular movement is intact no nystagmus is noted. Facial sensation is normal to touch throughout. The facial strength is normal throughout. Hearing is normal bilaterally to hand rub. Tongue is midline and moved [id number] without any difficulty. No dysarthria is noted. Shoulder shrug is normal bilaterally. Motor: The strength is 5 over 5 throughout. Normal tone and bulk. Cerebellum: Normal finger to nose bilaterally. Sensation: Sensation is normal to touch throughout. Some other workup during his hospital visit consisted of: Initial white blood cell is 30.9 thousand predominately neutrophilic--normalized. ESR 33 Vitamin B12: 882, folate 12.50 TSH: 7.230, free T4: 1.17 Sodium is 135, glucose is 100, calcium is 8.5, AST of 44 ALT of 29 B12:882 Serum folate: 12.5 CT of the head is reported as no acute intracranial process to account for the patient's symptoms. Consider MRI for additional workup. I reviewed the CT and agree with report. Carotid duplex was reported as less than 50% stenosis of bilateral carotid bifurcation. 2D echo: Left ventricular EF 55-60%. Small pericardial effusion No tamponade physiology - Labs CBC & Chem 7: 12/30/23 08:05 12/30/23 08:05 Labs: Abnormal Lab Results - Last 24 Hours (Table) 12/29/23 12/30/23 12/30/23 Range/Units 20:04 08:05 08:05 RBC 2.35 L (3.80-5.40) m/uL Hgb 7.0 L (11.4-16.0) gm/dL Hct 22.3 L (34.0-46.0) % RDW 15.9 H (11.5-15.5) % Sodium 134 L (137-145) mmol/L Potassium 5.4 H (3.5-5.1) mmol/L BUN 34 H (7-17) mg/dL Creatinine 4.39 H (0.52-1.04) mg/dL Glucose 159 H (74-99) mg/dL POC Glucose (mg/dL) 125 H (70-110) mg/dL 12/30/23 Range/Units 11:27 RBC (3.80-5.40) m/uL Hgb (11.4-16.0) gm/dL Hct (34.0-46.0) % RDW (11.5-15.5) % Sodium (137-145) mmol/L Potassium (3.5-5.1) mmol/L BUN (7-17) mg/dL Creatinine (0.52-1.04) mg/dL Glucose (74-99) mg/dL POC Glucose (mg/dL) 219 H (70-110) mg/dL Assessment and Plan Assessment: This is a 33-year-old woman who has chronic history of diabetes type I, end- stage renal disease on dialysis who presented emergency department because of shortness of breath. It seems that the on 12/10/2023 she went to outside hospital (like [place] for complete the visual loss over the right eye with eye pain and the blurry vision over the left eye. Patient then was transferred to outside hospital over to [facility] escalation of care. Results during this admission for shortness of breath. Visual disturbance of both eyes, visual loss over the right eye and blurry vision over the left eye due to multifactorial: diabetic retinopathy and vitreous hemorrhage in both eye and her recent small right occipital stroke. She has two MRI Brain at outside hospital which showed small right occipital stroke and MRV was negative. Was felt unlikely optic neuritis or orbital cellulitis. Recent stroke over the right occipital and left centrum semiovalve on recent MRI at outside hospital: History of right facial droop and dysarthria a couple months ago. The patient stated that she did not have a stroke at that time when she went to the hospital Leukocytosis is likely reactive due to steroids. Does not have fevers---resolved Dyspnea possibly due to ESRD ESRD on dialysis Chronic Diabetes Mellitus and her last HbA1c is 9.6 on 07/2023--poorly controlled History of seizures on Depakote Hypertension Hypothyroidism Plan: * We obtained the records from [facility]: The patient initially prior to transfer to [facility] was at outside hospital on 12/11/2023 for sudden loss of vision over the right eye associate with pain but had left facial swelling and headache. She was having floaters over the left eye for a week and a half prior to presentation. This seems the patient had CT of the face which shows soft tissue swelling with discrete fluid collection dental disease of lateral incision. MRI the brain showed acute to subacute small she was started on IV antibiotic as well as was treated with IV Solu- Medrol starting on 12/14/2023 due to concern for optic neuritis. right occipital and left semiovalve. The patient had dental caries was some facial cellulitis and she received antibiotic.. She received IV antibiotic as well as treated for IV Solu-Medrol for concern for optic neuritis She had a transthoracic echocardiogram which did not show any vegetation or intracardiac shunt. She had carotid duplex was negative for any stenosis. Patient was transferred to [facility] for neuro-ophthalmology evaluation. The ophthalmology team felt her vision issues was due to her diabetic retinopathy and vitreous hemorrhage in both eyes explained her vision change and there is a low concern for optic neuritis. The IV Solu-Medrol was discontinued. Patient had a repeat MRI and it's reported as showed increased size and progressive signal abnormality involving the small right occipital nonhemorrhagic infarct greater than 8 hours. MRV was negative for sinus thrombosis. ID was involved and there is no concern for orbital cellulitis or effective septic emboli. * The patient does not have any worsening under her neurological condition no need for repeat MRI. * Ophthamologist is consulted (Dr. Moncada) and his staff notified our nurse that she is known to them and it seems she has vitreous hemorrhage and had cauterization of eyes. * Recommend transesophageal echocardiogram and 30 day event monitor. * She is on aspirin 81 mg daily as well as Lipitor 40 mg daily. No need for dual antiplatelet since not worse of neurological condition and has vitreous hemorrhage. Will defer use of dual antiplatlet to outpatient neurologist if felt the need. * Nephrology and cardiology on board * Commend the better control of her risk factors, diabetes, hypertension on manager long term care. * We'll defer the rest of the medical management to primary and other s pecialists * Upon discharge recommend the patient to follow-up with a neurologist as an outpatient within 1-2 weeks and continue to follow-up with her [employer]. The plan discussed with the patient and her primary attending. Time with Patient: Less than 30
[2023-12-30 19:35] LABS: Glucose,Whole Blood 257 mg/dL (70-110)
[2023-12-31 05:53] LABS: Glucose,Whole Blood 287 mg/dL (70-110)
[2023-12-31] MEDS: MIDAZOLAM 2 MG/2 ML VIAL IVP ONE ×2 (09:00)
[2023-12-31] MEDS: BENZOCAINE SPRAY 1 CAN TOPICAL ONE (09:00)
[2023-12-31 09:20] LABS: Basophils % (A) 0 %; Eosinophils # (A) 0.3 k/uL (0-0.7); Eosinophils % (A) 3 %; HCT 22.4 % (34.0-46.0); HGB 7.2 gm/dL (11.4-16.0); Lymphocytes # (A) 1.6 k/uL (1.0-4.8); Lymphocytes % (A) 17 %; MCH 30.4 pg (25.0-35.0); MCHC 32.2 g/dL (31.0-37.0); MCV 94.3 fL (80.0-100.0); Mean Platelet Volume 8.6; Monocytes # (A) 0.7 k/uL (0-1.0); Monocytes % (A) 7 %; Neutrophils # (A) 6.7 k/uL (1.3-7.7); Neutrophils % (A) 71 %; Platelet Count 312 k/uL (150-450); RBC 2.37 m/uL (3.80-5.40); RDW 15.4 % (11.5-15.5); WBC 9.5 k/uL (3.8-10.6)
--- NOTE | 2023-12-31 09:23 | P.TEE ---
Description of Procedure(s): Procedure performed: Transesophageal Echocardiogram with color flow doppler, pulsed wave doppler and continuous wave doppler, moderate conscious sedation Moderate conscious sedation: Moderate conscious sedation was supplied with direct supervision of myself using Versed and Fentanyl. Complications: none Indications: Bacteremia PROCEDURE: After the risks, benefits and alternatives of the above mentioned procedure was explained in detail with the patient, informed consent was obtained. Patient was brought to the lab in a fasting state. Patient was given IV Versed and Fentanyl for sedation. The throat was sprayed with Hurricane to anesthetize the throat. A lubricated Omni probe was then introduced into the esophagus and stomach and multiple views were obtained. 2D echo with color flow doppler, pulsed wave doppler and continuous wave doppler was utilized. Agitated saline bubbles were injected to assess for any intra-atrial shunt. There was no shunt or bubbles noted crossing however images not recorded. The probe was then removed. Patient tolerated the procedure well. Patient was transferred to the post procedure area in stable and satisfactory condition. FINDINGS: 1. The aortic valve is tricuspid with normal function. 2. The mitral valve appears be normal with mild mitral regurgitation. 3. Tricuspid valve is normal with no vegetation. 4. The interatrial septum is intact. No evidence of PFO. 5. Left atrial appendage is free of clot. 6. Left ventricular ejection fraction 55% 7. No vegetation noted 8. Dialysis catheter noted in right atrium with no vegetation noted on catheter.
[2023-12-31 09:36] LABS: African American GFR (CKD) 18 (>60 ml/min/1.73 sqM); Anion Gap 6 mmol/L; Blood Urea Nitrogen 34 mg/dL (7-17); Calcium 8.4 mg/dL (8.4-10.2); Carbon Dioxide 29 mmol/L (22-30); Chloride 96 mmol/L (98-107); Glucose 231 mg/dL (74-99); Magnesium 1.8 mg/dL (1.6-2.3); Non-African American GFR(CKD) 15 (>60 ml/min/1.73 sqM); Potassium 4.9 mmol/L (3.5-5.1); Sodium 131 mmol/L (137-145)
[2023-12-31] MEDS: fentaNYL (PF) 50 MCG/1 ML VIAL IVP ONE (09:50)
[2023-12-31] MEDS: fentaNYL (PF) 50 MCG/ML 2 ML AMP ONE (10:51)
[2023-12-31 11:22] LABS: Glucose,Whole Blood 308 mg/dL (70-110)
[2023-12-31] MEDS: SODIUM ZIRCONIUM CYCLOSILICATE 10 GM PACKET PO SCH (11:32)
[2023-12-31] MEDS: METOCLOPRAMIDE 10 MG TAB PO SCH (11:35)
--- NOTE | 2023-12-31 11:45 | P.PN ---
Subjective Patient is seen in follow-up for end-stage renal disease. She is maintained on hemodialysis on Wednesday schedule. No problems with dialysis yesterday. Resting in bed. No active complaints. Vital signs are stable. General: No acute distress. HEENT: Head exam is unremarkable. On room air. LUNGS: No audible rhonchi or wheezes. HEART: Rate and Rhythm are regular. ABDOMEN: Nontender. EXTREMITITES: Trace edema. Objective - Vital Signs Vital signs: Vital Signs Temp 97.9 F 12/31/23 11:00 Pulse 86 12/31/23 11:00 Resp 18 12/31/23 11:00 BP 149/83 12/31/23 11:00 Pulse Ox 95 12/31/23 11:00 FiO2 60 12/31/23 00:24 Intake & Output 12/30/23 12/31/23 12/31/23 18:59 06:59 18:59 Intake Total 1424 540 Output Total 4400 Balance -2976 540 Intake: Oral 1024 540 Hemodialysis 400 Output: Hemodialysis 4400 Other: Voiding Method Toilet Toilet Toilet - Labs CBC & Chem 7: 12/31/23 07:41 12/31/23 07:41 Labs: Abnormal Lab Results - Last 24 Hours (Table) 12/30/23 12/30/23 12/31/23 Range/Units 16:48 19:31 05:52 RBC (3.80-5.40) m/uL Hgb (11.4-16.0) gm/dL Hct (34.0-46.0) % Sodium (137-145) mmol/L Chloride (98-107) mmol/L BUN (7-17) mg/dL Creatinine (0.52-1.04) mg/dL Glucose (74-99) mg/dL POC Glucose (mg/dL) 258 H 257 H 287 H (70-110) mg/dL 12/31/23 12/31/23 12/31/23 Range/Units 07:41 07:41 11:20 RBC 2.37 L (3.80-5.40) m/uL Hgb 7.2 L (11.4-16.0) gm/dL Hct 22.4 L (34.0-46.0) % Sodium 131 L (137-145) mmol/L Chloride 96 L (98-107) mmol/L BUN 34 H (7-17) mg/dL Creatinine 3.72 H (0.52-1.04) mg/dL Glucose 231 H (74-99) mg/dL POC Glucose (mg/dL) 308 H (70-110) mg/dL Assessment and Plan Plan: Assessment: 1. End-stage renal disease maintained on hemodialysis on Wednesday schedule via right chest permacath. Has a PD catheter but still needs to be trained. PD catheter will be removed if no improvement in her vision. 2. Acute hypoxic respiratory failure. 3. Volume overload. Improved with ultrafiltration. 4. Type 1 diabetes mellitus. 5. Impaired vision due to CVA versus optic neuritis. Neurology following. 6. Hypertension with chronic kidney disease. 7. Hyperkalemia secondary to chronic kidney disease. Improved postdialysis. 8. Anemia of chronic kidney disease. Status post blood transfusion this admission. On Aranesp. Plan: Received hemodialysis last 3 days with nearly 10 L of ultrafiltration. Next dialysis treatment tomorrow. Phosphorus level 4.1 dated December 28, 2023. No vegetation noted on HAYDER. Preserved ejection fraction. Low potassium diet Maintain Lokelid. Hold hydralazine for systolic blood pressure less than 120.
--- NOTE | 2023-12-31 12:14 | P.PN ---
Subjective Progress Note Date: 12/31/23 I am following-up with patient and today she had HAYDER. Denies any acute neurological issues. Objective - Vital Signs Vital signs: Vital Signs Temp 97.9 F 12/31/23 11:00 Pulse 86 12/31/23 11:00 Resp 18 12/31/23 11:00 BP 149/83 12/31/23 11:00 Pulse Ox 95 12/31/23 11:00 FiO2 60 12/31/23 00:24 Intake & Output 12/30/23 12/31/23 12/31/23 18:59 06:59 18:59 Intake Total 1424 540 Output Total 4400 Balance -2976 540 Intake: Oral 1024 540 Hemodialysis 400 Output: Hemodialysis 4400 Other: Voiding Method Toilet Toilet Toilet - Exam GENERAL: The patient is lying in bed and is not in acute distress. NEUROLOGICAL: Limited since just had HAYDER and sleepy. No facial weakness. Some other workup during his hospital visit consisted of: Initial white blood cell is 30.9 thousand predominately neutrophilic--normali zed. ESR 33 Vitamin B12: 882, folate 12.50 TSH: 7.230, free T4: 1.17 Sodium is 135, glucose is 100, calcium is 8.5, AST of 44 ALT of 29 B12:882 Serum folate: 12.5 CT of the head is reported as no acute intracranial process to account for the patient's symptoms. Consider MRI for additional workup. I reviewed the CT and agree with report. Carotid duplex was reported as less than 50% stenosis of bilateral carotid bifurcation. 2D echo: Left ventricular EF 55-60%. Small pericardial effusion No tamponade physiology HAYDER: 1. The aortic valve is tricuspid with normal function. 2. The mitral valve appears be normal with mild mitral regurgitation. 3. Tricuspid valve is normal with no vegetation. 4. The interatrial septum is intact. No evidence of PFO. 5. Left atrial appendage is free of clot. 6. Left ventricular ejection fraction 55% 7. No vegetation noted 8. Dialysis catheter noted in right atrium with no vegetation noted on catheter. - Labs CBC & Chem 7: 12/31/23 07:41 12/31/23 07:41 Labs: Abnormal Lab Results - Last 24 Hours (Table) 12/30/23 12/30/23 12/31/23 Range/Units 16:48 19:31 05:52 RBC (3.80-5.40) m/uL Hgb (11.4-16.0) gm/dL Hct (34.0-46.0) % Sodium (137-145) mmol/L Chloride (98-107) mmol/L BUN (7-17) mg/dL Creatinine (0.52-1.04) mg/dL Glucose (74-99) mg/dL POC Glucose (mg/dL) 258 H 257 H 287 H (70-110) mg/dL 12/31/23 12/31/23 12/31/23 Range/Units 07:41 07:41 11:20 RBC 2.37 L (3.80-5.40) m/uL Hgb 7.2 L (11.4-16.0) gm/dL Hct 22.4 L (34.0-46.0) % Sodium 131 L (137-145) mmol/L Chloride 96 L (98-107) mmol/L BUN 34 H (7-17) mg/dL Creatinine 3.72 H (0.52-1.04) mg/dL Glucose 231 H (74-99) mg/dL POC Glucose (mg/dL) 308 H (70-110) mg/dL Assessment and Plan Assessment: This is a 33-year-old woman who has chronic history of diabetes type I, end- stage renal disease on dialysis who presented emergency department because of shortness of breath. It seems that the on 12/10/2023 she went to outside hospital (like [place] for complete the visual loss over the right eye with eye pain and the blurry vision over the left eye. Patient then was transferred to outside hospital over to [facility] escalation of care. Results during this admission for shortness of breath. Visual disturbance of both eyes, visual loss over the right eye and blurry vision over the left eye due to multifactorial: diabetic retinopathy and vitreous hemorrhage in both eye and her recent small right occipital stroke. She has two MRI Brain at outside hospital which showed small right occipital st roke and MRV was negative. Was felt unlikely optic neuritis or orbital cellulitis. Recent stroke over the right occipital and left centrum semiovalve on recent MRI at outside hospital: History of right facial droop and dysarthria a couple months ago. The patient stated that she did not have a stroke at that time when she went to the hospital Leukocytosis is likely reactive due to steroids. Does not have fevers---resolved Dyspnea possibly due to ESRD ESRD on dialysis Chronic Diabetes Mellitus and her last HbA1c is 9.6 on 07/2023--poorly controlled History of seizures on Depakote Hypertension Hypothyroidism Plan: * We obtained the records from [facility]: The patient initially prior to transfer to [facility] was at outside hospital on 12/11/2023 for sudden loss of vision over the right eye associate with pain but had left facial swelling and headache. She was having floaters over the left eye for a week and a half prior to presentation. This seems the patient had CT of the face which shows soft tissue swelling with discrete fluid collection dental disease of lateral incision. MRI the brain showed acute to subacute small she was started on IV antibiotic as well as was treated with IV Solu- Medrol starting on 12/14/2023 due to concern for optic neuritis. right occipital and left semiovalve. The patient had dental caries was some facial cellulitis and she received antibiotic.. She received IV antibiotic as well as treated for IV Solu-Medrol for concern for optic neuritis She had a transthoracic echocardiogram which did not show any vegetation or intracardiac shunt. She had carotid duplex was negative for any stenosis. Patient was transferred to [facility] for neuro-ophthalmology evaluation. The ophthalmology team felt her vision issues was due to her diabetic retinopathy and vitreous hemorrhage in both eyes explained her vision change and there is a low concern for optic neuritis. The IV Solu-Medrol was discontinued. Patient had a repeat MRI and it's reported as showed increased size and progressive signal abnormality involving the small right occipital nonhemorrhagic infarct greater than 8 hours. MRV was negative for sinus thrombosis. ID was involved and there is no concern for orbital cellulitis or effective septic emboli. * The patient does not have any worsening under her neurological condition no need for repeat MRI. * Ophthamologist is consulted (Dr. Moncada) and his staff notified our nurse that she is known to them and it seems she has vitreous hemorrhage and had cauterization of eyes. * Today she had HAYDER which is negative for PFO or clot. Recommend 30 day event monitor. * She is on aspirin 81 mg daily as well as Lipitor 40 mg daily. No need for dual antiplatelet since not worse of neurological condition and has vitreous hemorrhage. Will defer use of dual antiplatlet to outpatient neurologist if felt the need. * Nephrology and cardiology on board * Recommend the better control of her risk factors, diabetes, hypertension on retirement. * We'll defer the rest of the medical management to primary and other specialists * Upon discharge recommend the patient to follow-up with a neurologist as an outpatient within 1-2 weeks and continue to follow-up with her Easter Bunny. The plan discussed with the patient and her primary attending. Time with Patient: Less than 30
--- NOTE | 2023-12-31 13:55 | P.PN ---
Subjective Progress Note Date: 12/31/23 Hospital Course: 33-year-old female with ESRD on hemodialysis, type 1 diabetes, hypertension, dyslipidemia presenting with acute on chronic shortness of breath. She first discovered about renal disease when she became , and subsequently was preeclamptic at the later stages of . She was started on hemodialysis 1 month prior to delivery. She remained on hemodialysis ever since. She u nderwent workup, and currently planning on getting pancreatic and renal transplant at [facility]. However, 3 weeks ago, she developed sudden onset bilateral vision loss. She initially presented to [facility], and was transferred to [facility]. She claims that workup at that hospital showed possible infection of the eye, was started on IV antibiotics and later discharged on oral antibiotics. She was only home for 1 day before she started developing worsening shortness of breath, and presented back to our facility. In the emergency room, patient was afebrile, 148/91, heart rate 85, 98% on nasal cannula. Upon initial arrival, patient was 210/140 and BiPAP dependent with a heart rate in the 130's and was started on a nitroglycerin drip which improved her blood pressure and heart rate. CBC demonstrated leukocytosis at 30.9, hemoglobin of 8.2. Chemistry shows sodium of 135, potassium is 6.3, BUN of 71, creatinine of 6.93, total protein of 5.7, albumin of 3.1, procalcitonin 1.23. VBG showed pH of 7.48, pCO2 of 33, coags were unremarkable. Influenza A, B, RSV, COVID were negative. Chest x-ray demonstrated cardiomegaly with diffuse interstitial infiltrates scattered throughout the lungs. EKG demonstrated sinus tachycardia with a short NV interval, no ischemic changes. No peaked T waves. Nephrology and neurology were consulted. Records from [facility]: Patient had dental caries with some facial cellulitis, for which she received antibiotics. Periorbital edema was also noted, unlikely to be infectious. Optic neuritis was ruled out. Patient was seen to have vitreous hemorrhage on the right, probable cause for her worsening right-sided vision. MRI brain also showed small area of infarct in the right occipital lobe. TTE did not show any vegetation or intracardiac shunt. Patient did not get a HAYDER or an event monitor. HAYDER showed no vegetations. Cardiology consulted. Subjective: Patient seen and examined at bedside. No acute events overnight. Shortness of breath have improved. Overall improving. Pertinent positives and negatives as discussed above, a complete review of systems was performed and all other systems are negative. Vitals Signs Reviewed. General: Nontoxic, no distress, appears at stated age Derm: Warm, dry Head: Atraumatic, normocephalic, symmetric Eyes: Reduced visual acuity bilaterally, worse on the left, pupils equal and reactive to light Mouth: No lip lesion, mucus membranes moist Cardiovascular: S1S2 reg, no murmur Lungs: Bilateral rales , no accessory muscle use, on BiPAP Abdominal: Soft, nontender to palpation, no guarding, no appreciable organomegaly Ext: No gross muscle atrophy, 2+ pitting edema, no contractures Neuro: CN II-XI grossly intact, no focal neuro deficits Psych: Alert, oriented, appropriate affect Data Reviewed Today: Pertinent Labs: WBC 9.5, hemoglobin 7.2, creatinine 3.72, blood sugars range between [id number], magnesium 1.8 Imaging: HAYDER did not show any vegetations Assessment and Plan: Active: Acute hypoxic respiratory failure, resolving Acute pulmonary edema, resolving ESRD on hemodialysis Hyperkalemia, resolved Hypertensive urgency Anemia of chronic disease, hemoglobin improved, status post 1 unit of PRBC -Nephrology note reviewed, hemodialysis tomorrow, low potassium diet, Lokelma 10 g once daily, nifedipine increased to 60 mg twice daily, also on aranesp -Continue to wean oxygen -Blood pressure better on oral Coreg 25 twice daily, hydralazine 100 3 times daily, nifedipine 60 BID -Was on nitroglycerin drip in the ER, now discontinued Subacute bilateral vision loss Right vitreous hemorrhage Small acute/subacute right occipital infarct -Discussed management with neurology, discontinue Plavix as she has been on it for 21 days, continue monotherapy with aspirin, and statin -Needs outpatient follow-up with neurology and ophthalmology -Cardiology following, HAYDER did not show any vegetations, patient may benefit from an event monitor Type 1 diabetes -Levemir increased to 30 units daily, sliding scale insulin, monitor for hypoglycemia Chronic: Depression GERD Hypothyroidism Dyslipidemia DVT ppx: SCDs Code status: Full code Anticipated discharge place: Home Anticipated discharge time: Possibly tomorrow Objective - Vital Signs Vital signs: Vital Signs Temp 97.9 F 12/31/23 11:00 Pulse 86 12/31/23 11:00 Resp 18 12/31/23 11:00 BP 149/83 12/31/23 11:00 Pulse Ox 95 12/31/23 11:00 FiO2 60 12/31/23 00:24 Intake & Output 12/30/23 12/31/23 12/31/23 18:59 06:59 18:59 Intake Total 1424 540 Output Total 4400 Balance -2976 540 Intake: Oral 1024 540 Hemodialysis 400 Output: Hemodialysis 4400 Other: Voiding Method Toilet Toilet Toilet - Labs CBC & Chem 7: 12/31/23 07:41 12/31/23 07:41 Labs: Abnormal Lab Results - Last 24 Hours (Table) 12/30/23 12/30/23 12/31/23 Range/Units 16:48 19:31 05:52 RBC (3.80-5.40) m/uL Hgb (11.4-16.0) gm/dL Hct (34.0-46.0) % Sodium (137-145) mmol/L Chloride (98-107) mmol/L BUN (7-17) mg/dL Creatinine (0.52-1.04) mg/dL Glucose (74-99) mg/dL POC Glucose (mg/dL) 258 H 257 H 287 H (70-110) mg/dL 12/31/23 12/31/23 12/31/23 Range/Units 07:41 07:41 11:20 RBC 2.37 L (3.80-5.40) m/uL Hgb 7.2 L (11.4-16.0) gm/dL Hct 22.4 L (34.0-46.0) % Sodium 131 L (137-145) mmol/L Chloride 96 L (98-107) mmol/L BUN 34 H (7-17) mg/dL Creatinine 3.72 H (0.52-1.04) mg/dL Glucose 231 H (74-99) mg/dL POC Glucose (mg/dL) 308 H (70-110) mg/dL
[2023-12-31] MEDS: INSULIN DETEMIR (LEVEMIR) 100 UNIT/ML SYR SQ ONE (16:18)
[2023-12-31 16:39] LABS: Glucose,Whole Blood 337 mg/dL (70-110)
[2023-12-31 19:56] LABS: Glucose,Whole Blood 275 mg/dL (70-110)
[2023-12-31] MEDS: INSULIN ASPART (NovoLOG) 100 UNIT/ML VIAL SQ SCH (20:26)
[2024-01-01 05:58] LABS: Glucose,Whole Blood 179 mg/dL (70-110)
[2024-01-01] MEDS: METOCLOPRAMIDE 10 MG TAB PO SCH (06:34)
[2024-01-01 09:09] LABS: Basophils # (A) 0.1 k/uL (0-0.2); Basophils % (A) 1 %; Eosinophils # (A) 0.3 k/uL (0-0.7); Eosinophils % (A) 2 %; HCT 23.4 % (34.0-46.0); HGB 7.5 gm/dL (11.4-16.0); Lymphocytes # (A) 1.6 k/uL (1.0-4.8); Lymphocytes % (A) 13 %; MCH 30.6 pg (25.0-35.0); MCHC 32.3 g/dL (31.0-37.0); MCV 94.6 fL (80.0-100.0); Mean Platelet Volume 8.4; Monocytes # (A) 0.7 k/uL (0-1.0); Monocytes % (A) 6 %; Neutrophils # (A) 9.7 k/uL (1.3-7.7); Neutrophils % (A) 78 %; Platelet Count 339 k/uL (150-450); RBC 2.47 m/uL (3.80-5.40); RDW 15.2 % (11.5-15.5); WBC 12.5 k/uL (3.8-10.6)
[2024-01-01 09:23] LABS: African American GFR (CKD) 12 (>60 ml/min/1.73 sqM); Anion Gap 10 mmol/L; Blood Urea Nitrogen 52 mg/dL (7-17); Calcium 8.8 mg/dL (8.4-10.2); Carbon Dioxide 23 mmol/L (22-30); Chloride 96 mmol/L (98-107); Glucose 165 mg/dL (74-99); Non-African American GFR(CKD) 11 (>60 ml/min/1.73 sqM); Potassium 5.4 mmol/L (3.5-5.1); Sodium 129 mmol/L (137-145)
[2024-01-01 11:21] LABS: Glucose,Whole Blood 242 mg/dL (70-110)
--- NOTE | 2024-01-01 12:54 | P.PN ---
Subjective Progress Note Date: 01/01/24 Hospital course: Patient is a 33-year-old female with a past medical history of ESRD on hemodialysis, type 1 diabetes, hypertension, and dyslipidemia. She presented to the emergency department on 12/27/2023 with acute on chronic shortness of breath. She first discovered about renal disease when she became , and subsequently was preeclamptic at the later stages of . She was started on hemodialysis 1 month prior to delivery. She remained on hemodialysis ever since and is currently planning on getting pancreatic and renal transplant at [facility]. However, 3 weeks ago, she developed sudden onset bilateral vision loss. She initially presented to [facility], and was transferred to [facility]. She claims that workup at that hospital showed possible infection of the eye and was started on IV antibiotics and later discharged on oral antibiotics. She was only home for 1 day before she then started developing worsening shortness of breath and presented to our facility. In the emergency room patient underwent full evaluation. Vital signs upon arrival show patient to be in hypertensive urgency with blood pressure 210/140 and BiPAP dependent with a heart rate in the 130's. She was started on a nitroglycerin drip which improved her blood pressure and heart rate. Labs were completed and reviewed. CBC demonstrated leukocytosis with WBC count of 30.9 and normocytic anemia with hemoglobin of 8.2 BMP revealed hyperkalemia with potassium of 6.3 and renal function consistent with ESRD with BUN of 71, cr eatinine of 6.93, and GFR of 7. Liver profile revealing elevated AST of 44, total protein of 5.7 and albumin of 3.1. Procalcitonin 0.23. VBG showed pH of 7.48 and pCO2 of 33. Coags were unremarkable. Influenza A, influenza B, RSV, and COVID were negative. Chest x-ray demonstrated cardiomegaly with diffuse interstitial infiltrates scattered throughout the lungs. EKG demonstrated sinus tachycardia with a short [place] interval, no ischemic changes and no peaked T waves. Patient was admitted under our services and nephrology and neurology were consulted. Records from [facility] were obtained revealing: Patient had dental caries with some facial cellulitis, for which she received anti biotics. Periorbital edema was also noted, unlikely to be infectious. Optic neuritis was ruled out. Patient was seen to have vitreous hemorrhage on the right, probable cause for her worsening right-sided vision. MRI brain also showed small area of infarct in the right occipital lobe. Cardiology was consulted and HAYDER was completed revealing a preserved EF of 55% and did not show any vegetation, PFO or intracardiac shunt. ESR 33 and CRP 5.7. TSH was elevated at 7.230 but free T4 was normal findings at 1.17. On 12/28/23 hemoglobin decreased to 6.7 resulting in transfusion of 1 unit PRBCs. Physical exam: Patient seen and fully evaluated at the bedside this morning. She reports continued decreased visual armendariz unchanged since admission, she states she believes her swelling has increased in her upper and lower extremities. Called and discussed this with lumber racker, Dr. Guzmán, whom recommended starting pt on Lasix 80 mg BID with strict I&O's. Vital signs reviewed and stable. General: Nontoxic, no distress and appears stated age. Derm: Skin warm and dry, normal coloration for ethnicity. Head: Atraumatic, normocephalic and symmetric. Eyes: Reduced visual acuity bilaterally, worse on the left, pupils equal and reactive to light Mouth: no lip lesions, mucus membranes moist Cardiovascular: regular rate and rhythm with normal S1S2, no murmur, positive posterior tibial pulses bilaterally, and cap refill < 2 seconds. Lungs: Respirations even, regular, and unlabored on room air. Lungs CTA bilaterally, no rhonchi, no rales, no wheezing, and no accessory muscle usage. Abdominal: soft, nontender to palpation, no guarding, no appreciable organomegaly Ext: ROM intact. No gross muscle atrophy, 2+ pitting bilateral upper and lower extremity edema, no contractures Neuro: Speech clear, face symmetrical and CN II-XII grossly intact with no noted focal neuro deficits Psych: Alert and oriented to person, place, time, and situation. Appropriate and pleasant affect. Assessment and Plan of Care: Acute hypoxic respiratory failure, improving Acute pulmonary edema, resolving ESRD on hemodialysis Fluid volume overload Hyperkalemia, currently undergoing dialysis Hyponatremia, secondary to dilution from fluid overload Hypertensive urgency, improved Anemia of chronic disease, hemoglobin stable status post 1 unit of PRBC -Nephrology following and discussed plan of care with lumber racker, Dr. Guzmán, whom recommended starting pt on Lasix 80 mg BID with strict I&O's. -Orders placed for Lasix 80 mg IVP twice daily. -Strict I's and O's -Continue dialysis Tuesdays//Saturdays. -Patient to continue low potassium diet, Lokelma 10 g once daily, darbepoetin 40 mcg q. 7 days, and nifedipine was increased to 60 mg twice daily. -Continue to wean oxygen as patient tolerates -Blood pressures better controlled. Continue Coreg 25 mg twice daily, hydralazine 100 mg 3 times daily, and nifedipine 60 mg twice daily Subacute bilateral vision loss Right vitreous hemorrhage Small acute/subacute right occipital infarct -Discussed management with neurology, discontinue Plavix as she has been on it for 21 days, continue monotherapy with aspirin 81 mg daily and atorvastatin 40 mg nightly. -Needs further outpatient follow-up with neurology and ophthalmology -Cardiology following, HAYDER was completed and did not show any vegetations or PFO. Patient may benefit from an event monitor at time of discharge Type 1 diabetes melitis with hyperglycemia -Blood glucose levels remain elevated and have fluctuated between 179 and 337 over the past 24 hours. Levemir increased to 35 units daily, and patient to continue with NovoLog sliding scale insulin. Monitor for hypoglycemia -Hemoglobin A1c was 9.6% in July, order placed for repeat hemoglobin A1c to review. Chronic: Depression GERD Hypothyroidism Dyslipidemia Data and imaging reviewed: -HAYDER was completed and report reviewed revealing a preserved EF of 55% and did not show any vegetation, PFO or intracardiac shunt. -Morning labs reviewed. CBC showing stable normocytic anemia with hemoglobin of 7.5. BMP revealing worsening hyponatremia with sodium of 129, potassium 5.4, and renal function consistent with ESRD with BUN of 52, creatinine of 4.95, and GFR of 11. Patient currently undergoing dialysis at this time which will treat hyperkalemia without need for further interventions/orders to be placed at this time. -Vital signs reviewed. Blood pressure 165/89, heart rate 94, respiratory rate 18, temp 98.4 F, and SpO2 of 93% on 4 L. Patient did require BiPAP overnight secondary to worsening shortness of breath but is now improved and stable on 4 L O2. DVT ppx: NAHED mccollum and SCDs Code status: Full code Anticipated discharge date: Clinical course to determine Anticipated discharge place: Clinical course to determine Patient was seen independently by Nurse Pracitioner. This document was prepared using [employer] dictation software. Please allow for errors in exchange trouble shooter, while rare they do occur. This patient was seen independently by Castro BURNER [employer]FT. I agree with the assessment and plan done by my colleague. Objective - Vital Signs Vital signs: Vital Signs Temp 98.2 F 01/01/24 04:04 Pulse 92 01/01/24 04:04 Resp 20 01/01/24 04:04 BP 150/79 01/01/24 04:04 Pulse Ox 93 L 01/01/24 04:04 FiO2 60 12/31/23 23:23 Intake & Output 12/31/23 01/01/24 01/01/24 18:59 06:59 18:59 Intake Total 960 Balance 960 Weight 84 kg Intake: Oral 960 Other: Voiding Method Toilet Toilet # Voids 0 0 # Bowel Movements 0 - Labs CBC & Chem 7: 01/02/24 06:48 01/02/24 06:48 Labs: Abnormal Lab Results - Last 24 Hours (Table) 12/31/23 12/31/23 12/31/23 Range/Units 07:41 07:41 11:20 RBC 2.37 L (3.80-5.40) m/uL Hgb 7.2 L (11.4-16.0) gm/dL Hct 22.4 L (34.0-46.0) % Sodium 131 L (137-145) mmol/L Chloride 96 L (98-107) mmol/L BUN 34 H (7-17) mg/dL Creatinine 3.72 H (0.52-1.04) mg/dL Glucose 231 H (74-99) mg/dL POC Glucose (mg/dL) 308 H (70-110) mg/dL 12/31/23 12/31/23 01/01/24 Range/Units 16:36 19:55 05:55 RBC (3.80-5.40) m/uL Hgb (11.4-16.0) gm/dL Hct (34.0-46.0) % Sodium (137-145) mmol/L Chloride (98-107) mmol/L BUN (7-17) mg/dL Creatinine (0.52-1.04) mg/dL Glucose (74-99) mg/dL POC Glucose (mg/dL) 337 H 275 H 179 H (70-110) mg/dL
[2024-01-01] MEDS: FUROSEMIDE 10 MG/ML 10 ML VIAL IV SCH (13:11)
[2024-01-01] MEDS: INSULIN DETEMIR (LEVEMIR) 100 UNIT/ML SYR SQ SCH (13:12)
[2024-01-01] MEDS ORDERED: INSULIN DETEMIR (LEVEMIR) 100 UNIT/ML SYR SQ SCH (13:30)
--- NOTE | 2024-01-01 15:03 | P.PN ---
Subjective Progress Note Date: 01/01/24 Patient is seen in follow-up for end-stage renal disease. She is maintained on hemodialysis on Wednesday schedule. No problems with dialysis today. Still feels very short of breath between HD sessions. Vital signs are stable. General: No acute distress. HEENT: Head exam is unremarkable. On room air. LUNGS: No audible rhonchi or wheezes. HEART: Rate and Rhythm are regular. ABDOMEN: Nontender. EXTREMITITES: Trace edema. Objective - Vital Signs Vital signs: Vital Signs Temp 98.4 F 01/01/24 08:25 Pulse 94 01/01/24 08:25 Resp 18 01/01/24 08:25 BP 165/89 01/01/24 08:25 Pulse Ox 98 01/01/24 08:25 FiO2 60 12/31/23 23:23 Intake & Output 12/31/23 01/01/24 01/01/24 18:59 06:59 18:59 Intake Total 960 480 Balance 960 480 Weight 84 kg Intake: Oral 960 480 Other: Voiding Method Toilet Toilet Toilet # Voids 0 0 # Bowel Movements 0 - Labs CBC & Chem 7: 01/01/24 07:03 01/01/24 07:03 Labs: Abnormal Lab Results - Last 24 Hours (Table) 12/31/23 12/31/23 12/31/23 Range/Units 11:20 16:36 19:55 WBC (3.8-10.6) k/uL RBC (3.80-5.40) m/uL Hgb (11.4-16.0) gm/dL Hct (34.0-46.0) % Neutrophils # (1.3-7.7) k/uL Sodium (137-145) mmol/L Potassium (3.5-5.1) mmol/L Chloride (98-107) mmol/L BUN (7-17) mg/dL Creatinine (0.52-1.04) mg/dL Glucose (74-99) mg/dL POC Glucose (mg/dL) 308 H 337 H 275 H (70-110) mg/dL 01/01/24 01/01/24 01/01/24 Range/Units 05:55 07:03 07:03 WBC 12.5 H (3.8-10.6) k/uL RBC 2.47 L (3.80-5.40) m/uL Hgb 7.5 L (11.4-16.0) gm/dL Hct 23.4 L (34.0-46.0) % Neutrophils # 9.7 H (1.3-7.7) k/uL Sodium 129 L (137-145) mmol/L Potassium 5.4 H (3.5-5.1) mmol/L Chloride 96 L (98-107) mmol/L BUN 52 H (7-17) mg/dL Creatinine 4.95 H (0.52-1.04) mg/dL Glucose 165 H (74-99) mg/dL POC Glucose (mg/dL) 179 H (70-110) mg/dL Assessment and Plan Plan: Assessment: 1. End-stage renal disease maintained on hemodialysis on Wednesday schedule via right chest permacath. Has a PD catheter but still needs to be trained. PD catheter will be removed if no improvement in her vision. 2. Acute hypoxic respiratory failure. 3. Volume overload. Improved with ultrafiltration. 4. Type 1 diabetes mellitus. 5. Impaired vision due to CVA versus optic neuritis. Neurology following. 6. Hypertension with chronic kidney disease. 7. Hyperkalemia secondary to chronic kidney disease. Improved postdialysis. 8. Anemia of chronic kidney disease. Status post blood transfusion this admission. On Aranesp. Plan: Had HD today, no issues. Next dialysis treatment Wednesday Start Lasix 80mg BID to maintain urine output. Phosphorus level 4.1 dated December 28, 2023. No vegetation noted on HAYDER. Preserved ejection fraction. Low potassium diet Maintain Lokelin. Hold hydralazine for systolic blood pressure less than 120.
[2024-01-01 16:33] LABS: Glucose,Whole Blood 332 mg/dL (70-110)
[2024-01-01 19:56] LABS: Glucose,Whole Blood 237 mg/dL (70-110)
[2024-01-02 06:06] LABS: Glucose,Whole Blood 170 mg/dL (70-110)
[2024-01-02 08:29] LABS: HCT 24.2 % (34.0-46.0); HGB 7.9 gm/dL (11.4-16.0); MCH 30.7 pg (25.0-35.0); MCHC 32.6 g/dL (31.0-37.0); MCV 94.1 fL (80.0-100.0); Mean Platelet Volume 8.7; Platelet Count 373 k/uL (150-450); RBC 2.57 m/uL (3.80-5.40); RDW 15.3 % (11.5-15.5); WBC 11.2 k/uL (3.8-10.6)
[2024-01-02 09:00] LABS: African American GFR (CKD) 16 (>60 ml/min/1.73 sqM); Anion Gap 13 mmol/L; Blood Urea Nitrogen 42 mg/dL (7-17); Calcium 9.2 mg/dL (8.4-10.2); Carbon Dioxide 23 mmol/L (22-30); Chloride 97 mmol/L (98-107); Glucose 155 mg/dL (74-99); Magnesium 1.7 mg/dL (1.6-2.3); Non-African American GFR(CKD) 14 (>60 ml/min/1.73 sqM); Potassium 4.9 mmol/L (3.5-5.1); Sodium 133 mmol/L (137-145)
[2024-01-02 11:25] LABS: Glucose,Whole Blood 379 mg/dL (70-110)
--- NOTE | 2024-01-02 11:45 | P.PN ---
Subjective Progress Note Date: 01/02/24 Patient is seen in follow-up for end-stage renal disease. She is maintained on hemodialysis on Wednesday schedule. Breathing is improved today but states that she does have some mild abdominal pain and feels like she is constipated with hard stool yesterday. Vital signs are stable. General: No acute distress. HEENT: Head exam is unremarkable. On room air. LUNGS: No audible rhonchi or wheezes. HEART: Rate and Rhythm are regular. ABDOMEN: Mild tenderness to palpation, no rebound tenderness EXTREMITITES: Trace edema. Objective - Vital Signs Vital signs: Vital Signs Temp 97.2 F L 01/02/24 08:20 Pulse 87 01/02/24 08:20 Resp 18 01/02/24 08:20 BP 138/86 01/02/24 08:20 Pulse Ox 97 01/02/24 08:20 FiO2 60 12/31/23 23:23 Intake & Output 01/01/24 01/02/24 01/02/24 18:59 06:59 18:59 Intake Total 1478 700 Output Total 4400 Balance -2922 700 Weight 81.4 kg Intake: Oral 1078 700 Hemodialysis 400 Output: Hemodialysis 4400 Other: Voiding Method Toilet Toilet # Voids 0 # Bowel Movements 1 - Labs CBC & Chem 7: 01/02/24 06:48 01/02/24 06:48 Labs: Abnormal Lab Results - Last 24 Hours (Table) 01/01/24 01/01/24 01/02/24 Range/Units 16:31 19:54 06:01 WBC (3.8-10.6) k/uL RBC (3.80-5.40) m/uL Hgb (11.4-16.0) gm/dL Hct (34.0-46.0) % Sodium (137-145) mmol/L Chloride (98-107) mmol/L BUN (7-17) mg/dL Creatinine (0.52-1.04) mg/dL Glucose (74-99) mg/dL POC Glucose (mg/dL) 332 H 237 H 170 H (70-110) mg/dL 01/02/24 01/02/24 01/02/24 Range/Units 06:48 06:48 11:23 WBC 11.2 H (3.8-10.6) k/uL RBC 2.57 L (3.80-5.40) m/uL Hgb 7.9 L (11.4-16.0) gm/dL Hct 24.2 L (34.0-46.0) % Sodium 133 L (137-145) mmol/L Chloride 97 L (98-107) mmol/L BUN 42 H (7-17) mg/dL Creatinine 3.99 H (0.52-1.04) mg/dL Glucose 155 H (74-99) mg/dL POC Glucose (mg/dL) 379 H (70-110) mg/dL Assessment and Plan Plan: Assessment: 1. End-stage renal disease maintained on hemodialysis on Wednesday schedule via right chest permacath. Has a PD catheter but still needs to be trained. PD catheter will be removed if no improvement in her vision. 2. Acute hypoxic respiratory failure. 3. Volume overload. Improved with ultrafiltration. 4. Type 1 diabetes mellitus. 5. Impaired vision due to CVA versus optic neuritis. Neurology following. 6. Hypertension with chronic kidney disease. 7. Hyperkalemia secondary to chronic kidney disease. Improved postdialysis. 8. Anemia of chronic kidney disease. Status post blood transfusion this admission. On . Plan: Next dialysis treatment Wednesday Lasix 80mg IV BID to maintain urine output, no urine output past 24 hours Phosphorus level 4.1 dated December 28, 2023. No vegetation noted on HAYDER. Preserved ejection fraction. Low potassium diet Maintain Lokelma. Hold hydralazine for systolic blood pressure less than 120. Started on stool softeners to avoid constipation and abdominal pain persists despite bowel movements will consider peritoneal fluid analysis for peritonitis
[2024-01-02] MEDS: DOCUSATE 100 MG CAP PO SCH (12:30)
--- NOTE | 2024-01-02 12:35 | P.PN ---
Subjective Progress Note Date: 01/02/24 I am following-up with patient and she denies any new neurological issues. She has swelling in extremities. Objective - Vital Signs Vital signs: Vital Signs Temp 97.2 F L 01/02/24 08:20 Pulse 87 01/02/24 08:20 Resp 18 01/02/24 08:20 BP 138/86 01/02/24 08:20 Pulse Ox 97 01/02/24 08:20 FiO2 60 12/31/23 23:23 Intake & Output 01/01/24 01/02/24 01/02/24 18:59 06:59 18:59 Intake Total 1478 700 Output Total 4400 Balance -2922 700 Weight 81.4 kg Intake: Oral 1078 700 Hemodialysis 400 Output: Hemodialysis 4400 Other: Voiding Method Toilet Toilet # Voids 0 # Bowel Movements 1 - Exam GENERAL: The patient is lying in bed and is not in acute distress. NEUROLOGICAL: Limited since just had HAYDER and sleepy. No facial weakness. Some other workup during his hospital visit consisted of: Initial white blood cell is 30.9 thousand predominately neutrophilic--normalized. ESR 33 Vitamin B12: 882, folate 12.50 TSH: 7.230, free T4: 1.17 Sodium is 135, glucose is 100, calcium is 8.5, AST of 44 ALT of 29 B12:882 Serum folate: 12.5 CT of the head is reported as no acute intracranial process to account for the patient's symptoms. Consider MRI for additional workup. I reviewed the CT and agree with report. Carotid duplex was reported as less than 50% stenosis of bilateral carotid bifurcation. 2D echo: Left ventricular EF 55-60%. Small pericardial effusion No tamponade p hysiology HAYDER: 1. The aortic valve is tricuspid with normal function. 2. The mitral valve appears be normal with mild mitral regurgitation. 3. Tricuspid valve is normal with no vegetation. 4. The interatrial septum is intact. No evidence of PFO. 5. Left atrial appendage is free of clot. 6. Left ventricular ejection fraction 55% 7. No vegetation noted 8. Dialysis catheter noted in right atrium with no vegetation noted on catheter. - Labs CBC & Chem 7: 01/02/24 06:48 01/02/24 06:48 Labs: Abnormal Lab Results - Last 24 Hours (Table) 01/01/24 01/01/2424 Range/Units 16:31 19:54 06:01 WBC (3.8-10.6) k/uL RBC (3.80-5.40) m/uL Hgb (11.4-16.0) gm/dL Hct (34.0-46.0) % Sodium (137-145) mmol/L Chloride (98-107) mmol/L BUN (7-17) mg/dL Creatinine (0.52-1.04) mg/dL Glucose (74-99) mg/dL POC Glucose (mg/dL) 332 H 237 H 170 H (70-110) mg/dL 01/02/24 01/02/24 01/02/24 Range/Units 06:48 06:48 11:23 WBC 11.2 H (3.8-10.6) k/uL RBC 2.57 L (3.80-5.40) m/uL Hgb 7.9 L (11.4-16.0) gm/dL Hct 24.2 L (34.0-46.0) % Sodium 133 L (137-145) mmol/L Chloride 97 L (98-107) mmol/L BUN 42 H (7-17) mg/dL Creatinine 3.99 H (0.52-1.04) mg/dL Glucose 155 H (74-99) mg/dL POC Glucose (mg/dL) 379 H (70-110) mg/dL Assessment and Plan Assessment: This is a 33-year-old woman who has chronic history of diabetes type I, end- stage renal disease on dialysis who presented emergency department because of shortness of breath. It seems that the on 12/10/2023 she went to outside hospital (like [facility] for complete the visual loss over the right eye with eye pain and the blurry vision over the left eye. Patient then was transferred to outside hospital over to [facility] escalation of care. Results during this admission for shortness of breath. Visual disturbance of both eyes, visual loss over the right eye and blurry vision over the left eye due to multifactorial: diabetic retinopathy and vitreous hemorrhage in both eye and her recent small right occipital stroke. She has two MRI Brain at outside hospital which showed small right occipital stroke and MRV was negative. Was felt unlikely optic neuritis or orbital cellulitis. Recent stroke over the right occipital and left centrum semiovalve on recent MRI at outside hospital: History of right facial droop and dysarthria a couple months ago. The patient stated that she did not have a stroke at that time when she went to the hospital Leukocytosis is likely reactive due to steroids. Does not have fevers---resolved Dyspnea possibly due to ESRD ESRD on dialysis Chronic Diabetes Mellitus and her last HbA1c is 9.6 on 07/2023--poorly controlled History of seizures on Depakote Hypertension Hypothyroidism Plan: * We obtained the records from [facility]: The patient initially prior to transfer to [facility] was at outside hospital on 12/11/2023 for sudden loss of vision over the right eye associate with pain but had left facial swelling and headache. She was having floaters over the left eye for a week and a half prior to presentation. This seems the patient had CT of the face which shows soft tissue swelling with discrete fluid collection dental disease of lateral incision. MRI the brain showed acute to subacute small she was started on IV antibiotic as well as was treated with IV Solu- Medrol starting on 12/14/2023 due to concern for optic neuritis. right occipital and left semiovalve. The patient had dental caries was some facial cellulitis and she received antibiotic.. She received IV antibiotic as well as treated for IV Solu-Medrol for concern for optic neuritis She had a transthoracic echocardiogram which did not show any vegetation or intracardiac shunt. She had carotid duplex was negative for any stenosis. Patient was transferred to [facility] for neuro-ophthalmology evaluation. The ophthalmology team felt her vision issues was due to her diabetic retinopathy and vitreous hemorrhage in both eyes explained her vision change and there is a low concern for optic neuritis. The IV Solu-Medrol was discontinued. Patient had a repeat MRI and it's reported as showed increased size and progressive signal abnormality involving the small right occipital nonhemorrhagic infarct g reater than 8 hours. MRV was negative for sinus thrombosis. ID was involved and there is no concern for orbital cellulitis or effective septic emboli. * The patient does not have any worsening under her neurological condition no need for repeat MRI. * Ophthamologist is consulted (Dr. Moncada) and his staff notified our nurse that she is known to them and it seems she has vitreous hemorrhage and had cauterization of eyes. * HAYDER which is negative for PFO or clot. Recommend 30 day event monitor. * She is on aspirin 81 mg daily as well as Lipitor 40 mg daily. No need for d ual antiplatelet since not worse of neurological condition and has vitreous hemorrhage. Will defer use of dual antiplatlet to outpatient neurologist if felt the need. * Nephrology and cardiology on board * Recommend the better control of her risk factors, diabetes, hypertension on custodial. * We'll defer the rest of the medical management to primary and other specialists * Upon discharge recommend the patient to follow-up with a neurologist as an outpatient within 1-2 weeks and continue to follow-up with her Redevelopment Specialist. The plan discussed with the patient and her primary team N.P. Will follow-up sporadically. Dr. Severino will resume neurology service tomorrow A.M. Time with Patient: Less than 30
--- NOTE | 2024-01-02 13:57 | P.PN ---
Subjective Progress Note Date: 01/02/24 Hospital course: Patient is a 33-year-old female with a past medical history of ESRD on hemodialysis, type 1 diabetes, hypertension, and dyslipidemia. She presented to the emergency department on 12/27/2023 with acute on chronic shortness of breath. She first discovered about renal disease when she became , and subsequently was preeclamptic at the later stages of . She was started on hemodialysis 1 month prior to delivery. She remained on hemodialysis ever since and is currently planning on getting pancreatic and renal transplant at [facility]. However, 3 weeks ago, she developed sudden onset bilateral vision loss. She initially presented to [facility], and was transferred to [facility]. She claims that workup at that hospital showed possible infection of the eye and was started on IV antibiotics and later discharged on oral antibiotics. She was only home for 1 day before she then started developing worsening shortness of breath and presented to our facility. In the emergency room patient underwent full evaluation. Vital signs upon arrival show patient to be in hypertensive urgency with blood pressure 210/140 and BiPAP dependent with a heart rate in the 130's. She was started on a nitroglycerin drip which improved her blood pressure and heart rate. Labs were completed and reviewed. CBC demonstrated leukocytosis with WBC count of 30.9 and normocytic anemia with hemoglobin of 8.2 BMP revealed hyperkalemia with potassium of 6.3 and renal function consistent with ESRD with BUN of 71, cr eatinine of 6.93, and GFR of 7. Liver profile revealing elevated AST of 44, total protein of 5.7 and albumin of 3.1. Procalcitonin 0.23. VBG showed pH of 7.48 and pCO2 of 33. Coags were unremarkable. Influenza A, influenza B, RSV, and COVID were negative. Chest x-ray demonstrated cardiomegaly with diffuse interstitial infiltrates scattered throughout the lungs. EKG demonstrated sinus tachycardia with a short ND interval, no ischemic changes and no peaked T waves. Patient was admitted under our services and nephrology and neurology were consulted. Records from [facility] were obtained revealing: Patient had dental caries with some facial cellulitis, for which she received anti biotics. Periorbital edema was also noted, unlikely to be infectious. Optic neuritis was ruled out. Patient was seen to have vitreous hemorrhage on the right, probable cause for her worsening right-sided vision. MRI brain also showed small area of infarct in the right occipital lobe. Cardiology was consulted and HAYDER was completed revealing a preserved EF of 55% and did not show any vegetation, PFO or intracardiac shunt. ESR 33 and CRP 5.7. TSH was elevated at 7.230 but free T4 was normal findings at 1.17. On 12/28/23 hemoglobin decreased to 6.7 resulting in transfusion of 1 unit PRBCs. Physical exam: Patient seen and fully evaluated at the bedside this morning. She reports continued decreased visual armendariz unchanged since admission, and denies any changes in swelling of upper and lower extremities. Patient has not had any urinary output since undergoing dialysis yesterday despite being started on Lasix 80 mg IVP twice daily. Called and discussed this with agricultural labor camp manager, Dr. Guzmán, whom recommended continuation of Lasix 80 mg BID and monitor for urinary output. Vital signs reviewed and stable. General: Nontoxic, no distress and appears stated age. Derm: Skin warm and dry, normal coloration for ethnicity. Head: Atraumatic, normocephalic and symmetric. Eyes: Reduced visual acuity bilaterally, worse on the left, pupils equal and reactive to light Mouth: no lip lesions, mucus membranes moist Cardiovascular: regular rate and rhythm with normal S1S2, no murmur, positive posterior tibial pulses bilaterally, and cap refill < 2 seconds. Lungs: Respirations even, regular, and unlabored on room air. Lungs CTA bilaterally, no rhonchi, no rales, no wheezing, and no accessory muscle usage. Abdominal: soft, nontender to palpation, no guarding, no appreciable organomegaly Ext: ROM intact. No gross muscle atrophy, 2+ pitting bilateral upper and lower extremity edema, no contractures Neuro: Speech clear, face symmetrical and CN II-XII grossly intact with no noted focal neuro deficits Psych: Alert and oriented to person, place, time, and situation. Appropriate and pleasant affect. Assessment and Plan of Care: Acute hypoxic respiratory failure, improving Acute pulmonary edema, resolving ESRD on hemodialysis Fluid volume overload Hyperkalemia, currently undergoing dialysis Hyponatremia, secondary to dilution from fluid overload Hypertensive urgency, improved Anemia of chronic disease, hemoglobin stable status post 1 unit of PRBC -Nephrology following and discussed plan of care with agricultural labor camp manager, Dr. Guzmán, Patient has not had any urinary output since undergoing dialysis yesterday daryl pite being started on Lasix 80 mg IVP twice daily, Dr. Guzmán, recommended continuation of Lasix 80 mg BID and continue to monitor for output. -Continue Lasix 80 mg IVP twice daily. -Strict I's and O's -Continue dialysis Tuesdays//Saturdays. Last dialysis session was 01/01/2024. -Patient to continue low potassium diet, Lokelma 10 g once daily, darbepoetin 40 mcg q. 7 days, and nifedipine was increased to 60 mg twice daily. -Continue to wean oxygen as patient tolerates -Blood pressures better controlled. Continue Coreg 25 mg twice daily, hydralazine 100 mg 3 times daily, and nifedipine 60 mg twice daily Subacute bilateral vision loss Right vitreous hemorrhage Small acute/subacute right occipital infarct -Discussed management with neurology, discontinue Plavix as she has been on it for 21 days, continue monotherapy with aspirin 81 mg daily and atorvastatin 40 mg nightly. Neurology recommending placement of 30-day event monitor prior to discharge. -Needs further outpatient follow-up with neurology and ophthalmology -Cardiology following, HAYDER was completed and did not show any vegetations or PFO. Patient may benefit from an event monitor at time of discharge Type 1 diabetes melitis with hyperglycemia -Blood glucose levels remain elevated and have fluctuated between 179 and 337 over the past 24 hours. Levemir increased to 35 units daily, and patient to continue with NovoLog sliding scale insulin. Monitor for hypoglycemia -Hemoglobin A1c was 9.6% in July, order placed for repeat hemoglobin A1c to review. Chronic Conditions: Depression and anxiety GERD Hypothyroidism Dyslipidemia -Patient to continue daily medication regimen with aspirin 81 mg daily, atorvastatin 40 mg nightly, carvedilol 25 mg twice daily, Depakote 500 mg twice daily, levothyroxine 176 mcg daily, Procardia 60 mg twice daily, Protonix 40 mg daily, and sertraline 200 mg daily. Data and imaging reviewed: -Morning labs reviewed. CBC showing stable normocytic anemia with hemoglobin of 7.9 and mild leukocytosis with WBC count of 11.2. BMP revealing worsening hyponatremia with sodium of 133, potassium 4.9, and renal function consistent with ESRD with BUN of 42, creatinine of 3.99 and GFR of 14. -Vital signs reviewed. Blood pressure 165/89, heart rate 94, respiratory rate 18, temp 98.4 F, and SpO2 of 93% on 4 L. Patient did require BiPAP overnight secondary to worsening shortness of breath but is now improved and stable on 4 L O2. DVT ppx: NAHED hose and SCDs Code status: Full code Anticipated discharge date: Clinical course to determine Anticipated discharge place: Clinical course to determine Patient was seen independently by Nurse Pracitioner. This document was prepared using [employer] dictation software. Please allow for errors in rehabilitation services aide, while rare they do occur. This patient was seen independently by [facility] PRESENTATION SPECIALIST. I agree with the assessment and plan done by my colleague. Objective - Vital Signs Vital signs: Vital Signs Temp 98.3 F 01/02/24 04:14 Pulse 91 01/02/24 04:14 Resp 18 01/02/24 04:14 BP 179/88 01/02/24 04:14 Pulse Ox 96 01/02/24 04:14 FiO2 60 12/31/23 23:23 Intake & Output 01/01/24 01/02/24 01/02/24 18:59 06:59 18:59 Intake Total 1478 Output Total 4400 Balance -2922 Weight 81.4 kg Intake: Oral 1078 Hemodialysis 400 Output: Hemodialysis 4400 Other: Voiding Method Toilet # Voids 0 # Bowel Movements 1 - Labs CBC & Chem 7: 01/02/24 06:48 01/02/24 06:48 Labs: Abnormal Lab Results - Last 24 Hours (Table) 01/01/24 01/01/24 01/01/24 Range/Units 07:03 07:03 11:19 WBC 12.5 H (3.8-10.6) k/uL RBC 2.47 L (3.80-5.40) m/uL Hgb 7.5 L (11.4-16.0) gm/dL Hct 23.4 L (34.0-46.0) % Neutrophils # 9.7 H (1.3-7.7) k/uL Sodium 129 L (137-145) mmol/L Potassium 5.4 H (3.5-5.1) mmol/L Chloride 96 L (98-107) mmol/L BUN 52 H (7-17) mg/dL Creatinine 4.95 H (0.52-1.04) mg/dL Glucose 165 H (74-99) mg/dL POC Glucose (mg/dL) 242 H (70-110) mg/dL 01/01/24 01/01/24 01/02/24 Range/Units 16:31 19:54 06:01 WBC (3.8-10.6) k/uL RBC (3.80-5.40) m/uL Hgb (11.4-16.0) gm/dL Hct (34.0-46.0) % Neutrophils # (1.3-7.7) k/uL Sodium (137-145) mmol/L Potassium (3.5-5.1) mmol/L Chloride (98-107) mmol/L BUN (7-17) mg/dL Creatinine (0.52-1.04) mg/dL Glucose (74-99) mg/dL POC Glucose (mg/dL) 332 H 237 H 170 H (70-110) mg/dL
[2024-01-02 16:18] LABS: Glucose,Whole Blood 353 mg/dL (70-110)
[2024-01-02 20:09] LABS: Glucose,Whole Blood 246 mg/dL (70-110)
[2024-01-03 06:08] LABS: Glucose,Whole Blood 211 mg/dL (70-110)
[2024-01-03 09:40] LABS: HCT 21.6 % (34.0-46.0); HGB 7.1 gm/dL (11.4-16.0); MCH 31.2 pg (25.0-35.0); MCHC 32.8 g/dL (31.0-37.0); MCV 95.3 fL (80.0-100.0); Mean Platelet Volume 7.5; Platelet Count 343 k/uL (150-450); RBC 2.26 m/uL (3.80-5.40); RDW 15.2 % (11.5-15.5); WBC 9.5 k/uL (3.8-10.6)
[2024-01-03 09:42] LABS: African American GFR (CKD) 11 (>60 ml/min/1.73 sqM); Anion Gap 13 mmol/L; Blood Urea Nitrogen 63 mg/dL (7-17); Calcium 8.8 mg/dL (8.4-10.2); Carbon Dioxide 21 mmol/L (22-30); Chloride 97 mmol/L (98-107); Glucose 240 mg/dL (74-99); Magnesium 1.7 mg/dL (1.6-2.3); Non-African American GFR(CKD) 10 (>60 ml/min/1.73 sqM); Potassium 5.2 mmol/L (3.5-5.1); Sodium 131 mmol/L (137-145)
[2024-01-03 11:20] LABS: Glucose,Whole Blood 360 mg/dL (70-110)
--- NOTE | 2024-01-03 12:10 | P.PN ---
Subjective Patient is seen for follow-up for end-stage renal disease. Complaining of shortness of breath which started last night. Patient is scheduled for hemodialysis today. She is currently on BiPAP. No acute distress. Objective - Vital Signs Vital signs: Vital Signs Temp 97.1 F L 01/03/24 08:20 Pulse 91 01/03/24 11:42 Resp 17 01/03/24 11:42 BP 154/83 01/03/24 11:42 Pulse Ox 95 01/03/24 11:42 FiO2 30 01/03/24 08:49 Intake & Output 01/02/24 01/03/24 01/03/24 18:59 06:59 18:59 Intake Total 1538 225 Output Total 200 350 300 Balance 1338 -350 -75 Weight 83.3 kg Intake: Oral 1538 225 Output: Urine 200 350 300 Other: Voiding Method Toilet Toilet Toilet - Exam Patient is awake, comfortable, no acute distress Examination of the heart S1 and S2 Examination of the lungs shows decreased breath sounds at the bases with basilar crackles Abdomen is soft nontender Examination of lower extremities shows no significant edema [employer] exam shows patient is able to move all 4 extremities. Decreased vision. - Labs CBC & Chem 7: 01/03/24 09:04 01/03/24 09:04 Labs: Abnormal Lab Results - Last 24 Hours (Table) 01/02/24 01/02/24 01/02/24 Range/Units 06:48 16:16 20:07 RBC (3.80-5.40) m/uL Hgb (11.4-16.0) gm/dL Hct (34.0-46.0) % Sodium (137-145) mmol/L Potassium (3.5-5.1) mmol/L Chloride (98-107) mmol/L Carbon Dioxide (22-30) mmol/L BUN (7-17) mg/dL Creatinine (0.52-1.04) mg/dL Glucose (74-99) mg/dL POC Glucose (mg/dL) 353 H 246 H (70-110) mg/dL Hemoglobin A1c 7.8 H (<=6.0) % 01/03/24 01/03/24 01/03/24 Range/Units 06:06 09:04 09:04 RBC 2.26 L (3.80-5.40) m/uL Hgb 7.1 L (11.4-16.0) gm/dL Hct 21.6 L (34.0-46.0) % Sodium 131 L (137-145) mmol/L Potassium 5.2 H (3.5-5.1) mmol/L Chloride 97 L (98-107) mmol/L Carbon Dioxide 21 L (22-30) mmol/L BUN 63 H (7-17) mg/dL Creatinine 5.30 H (0.52-1.04) mg/dL Glucose 240 H (74-99) mg/dL POC Glucose (mg/dL) 211 H (70-110) mg/dL Hemoglobin A1c (<=6.0) % 01/03/24 Range/Units 11:15 RBC (3.80-5.40) m/uL Hgb (11.4-16.0) gm/dL Hct (34.0-46.0) % Sodium (137-145) mmol/L Potassium (3.5-5.1) mmol/L Chloride (98-107) mmol/L Carbon Dioxide (22-30) mmol/L BUN (7-17) mg/dL Creatinine (0.52-1.04) mg/dL Glucose (74-99) mg/dL POC Glucose (mg/dL) 360 H (70-110) mg/dL Hemoglobin A1c (<=6.0) % Assessment and Plan Assessment: 1. End-stage renal disease maintained on hemodialysis on Wednesday schedule via right chest permacath. Has a PD catheter but still needs to be trained. Patient will be entertained on peritoneal dialysis if there is improvement in the left eye vision post cataract surgery otherwise the pd catheter will need to be removed. 2. Acute hypoxic respiratory failure. Improved 3. Volume overload. Improved with ultrafiltration. 4. Type 1 diabetes mellitus. 5. Impaired vision due to CVA versus optic neuritis. Neurology following. 6. Hypertension with chronic kidney disease. 7. Hyperkalemia secondary to chronic kidney disease. Improved postdialysis. 8. Anemia of chronic kidney disease. Status post blood transfusion this admis broderick. On Aranesp. Plan: Hemodialysis today and Repeat in a.m. Add lactulose for constipation
[2024-01-03] MEDS: LACTULOSE 20 GM/30 ML CUP PO SCH (12:20)
--- NOTE | 2024-01-03 13:25 | P.PN ---
Subjective Progress Note Date: 01/03/24 Hospital course: Patient is a 33-year-old female with a past medical history of ESRD on hemodialysis, type 1 diabetes, hypertension, and dyslipidemia. She presented to the emergency department on 12/27/2023 with acute on chronic shortness of breath. She first discovered about renal disease when she became , and subsequently was preeclamptic at the later stages of . She was started on hemodialysis 1 month prior to delivery. She remained on hemodialysis ever since and is currently planning on getting pancreatic and renal transplant at [facility]. However, 3 weeks ago, she developed sudden onset bilateral vision loss. She initially presented to [facility], and was transferred to [facility]. She claims that workup at that hospital showed possible infection of the eye and was started on IV antibiotics and later discharged on oral antibiotics. She was only home for 1 day before she then started developing worsening shortness of breath and presented to our facility. In the emergency room patient underwent full evaluation. Vital signs upon arrival show patient to be in hypertensive urgency with blood pressure 210/140 and BiPAP dependent with a heart rate in the 130's. She was started on a nitroglycerin drip which improved her blood pressure and heart rate. Labs were completed and reviewed. CBC demonstrated leukocytosis with WBC count of 30.9 and normocytic anemia with hemoglobin of 8.2 BMP revealed hyperkalemia with potassium of 6.3 and renal function consistent with ESRD with BUN of 71, cr eatinine of 6.93, and GFR of 7. Liver profile revealing elevated AST of 44, total protein of 5.7 and albumin of 3.1. Procalcitonin 0.23. VBG showed pH of 7.48 and pCO2 of 33. Coags were unremarkable. Influenza A, influenza B, RSV, and COVID were negative. Chest x-ray demonstrated cardiomegaly with diffuse interstitial infiltrates scattered throughout the lungs. EKG demonstrated sinus tachycardia with a short LA interval, no ischemic changes and no peaked T waves. Patient was admitted under our services and nephrology and neurology were consulted. Records from [facility] were obtained revealing: Patient had dental caries with some facial cellulitis, for which she received anti biotics. Periorbital edema was also noted, unlikely to be infectious. Optic neuritis was ruled out. Patient was seen to have vitreous hemorrhage on the right, probable cause for her worsening right-sided vision. MRI brain also showed small area of infarct in the right occipital lobe. Cardiology was consulted and HAYDER was completed revealing a preserved EF of 55% and did not show any vegetation, PFO or intracardiac shunt. ESR 33 and CRP 5.7. TSH was elevated at 7.230 but free T4 was normal findings at 1.17. On 12/28/23 hemoglobin decreased to 6.7 resulting in transfusion of 1 unit PRBCs. Physical exam: Patient seen and fully evaluated at the bedside this morning. She reports continued shortness of breath, urine output over the past 24 hours is 550 mL. Nephrology ordered for additional session of dialysis today. Patient also reporting constipation on lactulose was ordered. She denies having any chest pain, palpitations, nausea, vomiting, dizziness, lightheadedness, or any other complaints at this time. Vital signs reviewed and stable. General: Nontoxic, no distress and appears stated age. Derm: Skin warm and dry, normal coloration for ethnicity. Head: Atraumatic, normocephalic and symmetric. Eyes: Reduced visual acuity bilaterally, worse on the left, pupils equal and reactive to light Mouth: no lip lesions, mucus membranes moist Cardiovascular: regular rate and rhythm with normal S1S2, no murmur, positive posterior tibial pulses bilaterally, and cap refill < 2 seconds. Lungs: Respirations even, regular, and unlabored on room air. Lungs CTA bilaterally, no rhonchi, no rales, no wheezing, and no accessory muscle usage. Abdominal: soft, nontender to palpation, no guarding, no appreciable organomegaly Ext: ROM intact. No gross muscle atrophy, 2+ pitting bilateral upper and lower extremity edema, no contractures Neuro: Speech clear, face symmetrical and CN II-XII grossly intact with no noted focal neuro deficits Psych: Alert and oriented to person, place, time, and situation. Appropriate and pleasant affect. Assessment and Plan of Care: Acute hypoxic respiratory failure, improving Acute pulmonary edema, resolving ESRD on hemodialysis Fluid volume overload Hyperkalemia, currently undergoing dialysis Hyponatremia, secondary to dilution from fluid overload Hypertensive urgency, improved Anemia of chronic disease, hemoglobin stable status post 1 unit of PRBC -Nephrology following and discussed plan of care with core drill operator, Dr. Guzmán, Patient has not had any urinary output since undergoing dialysis yesterday despite being started on Lasix 80 mg IVP twice daily, Dr. Guzmán, recommended continuation of Lasix 80 mg BID and continue to monitor for output. -Continue Lasix 80 mg IVP twice daily. -Strict I's and O's, urinary output over the past 24 hours is 550 cc. -Continue dialysis Tuesdays//Saturdays. Patient scheduled to undergo an additional dialysis session today. -Patient to continue low potassium diet, Lokelma 10 g once daily, darbepoetin 40 mcg q. 7 days, and nifedipine was increased to 60 mg twice daily. -Continue to wean oxygen as patient tolerates -Blood pressures better controlled. Continue Coreg 25 mg twice daily, hydralazine 100 mg 3 times daily, and nifedipine 60 mg twice daily Subacute bilateral vision loss Right vitreous hemorrhage Small acute/subacute right occipital infarct -Discussed management with neurology, discontinue Plavix as she has been on it for 21 days, continue monotherapy with aspirin 81 mg daily and atorvastatin 40 mg nightly. Neurology recommending placement of 30-day event monitor prior to discharge. -Needs further outpatient follow-up with neurology and ophthalmology -Cardiology following, HAYDER was completed and did not show any vegetations or PFO. Patient may benefit from an event monitor at time of discharge Type 1 diabetes melitis with hyperglycemia -Blood glucose levels remain elevated and have fluctuated between 179 and 337 over the past 24 hours. Levemir increased to 35 units daily, and patient to continue with NovoLog sliding scale insulin. Monitor for hypoglycemia -Hemoglobin A1c 7.8%. Constipation Patient started on lactulose 30 g twice daily Chronic Conditions: Depression and anxiety GERD Hypothyroidism Dyslipidemia -Patient to continue daily medication regimen with aspirin 81 mg daily, atorva statin 40 mg nightly, carvedilol 25 mg twice daily, Depakote 500 mg twice daily, levothyroxine 176 mcg daily, Procardia 60 mg twice daily, Protonix 40 mg daily, and sertraline 200 mg daily. Data and imaging reviewed: -Morning labs reviewed. CBC showing stable normocytic anemia BMP revealing hyponatremia with sodium of 131, hyperkalemia with potassium 5.2, hypochloremia with chloride of 97, and hypocarbia with bicarb of 21 and elevated anion gap of 13. Renal function consistent with known ESRD with BUN of 63, creatinine 5.30, and GFR of 10. Morning glucose 240. Magnesium slightly low at 1.7. Orders placed for replacement. -Vital signs reviewed. Blood pressure DVT ppx: NAHED hose and SCDs Code status: Full code Anticipated discharge date: Clinical course to determine Anticipated discharge place: Clinical course to determine Patient was seen independently by Nurse Pracitioner. This document was prepared using [employer] dictation software. Please allow for errors in pe manager, while rare they do occur. This patient was seen independently by my colleague Castro DUENAS. I agree with the assessment and plan. Objective - Vital Signs Vital signs: Vital Signs Temp 97.0 F L 01/03/24 04:00 Pulse 93 01/03/24 04:00 Resp 18 01/03/24 04:00 BP 142/76 01/03/24 04:00 Pulse Ox 94 L 01/03/24 04:00 FiO2 30 01/03/24 03:19 Intake & Output 01/02/24 01/03/24 01/03/24 18:59 06:59 18:59 Intake Total 1538 Output Total 200 350 Balance 1338 -350 Weight 83.3 kg Intake: Oral 1538 Output: Urine 200 350 Other: Voiding Method Toilet Toilet - Labs CBC & Chem 7: 01/04/24 13:33 01/04/24 13:33 Labs: Abnormal Lab Results - Last 24 Hours (Table) 01/02/24 01/02/24 01/02/24 Range/Units 06:48 06:48 06:48 WBC 11.2 H (3.8-10.6) k/uL RBC 2.57 L (3.80-5.40) m/uL Hgb 7.9 L (11.4-16.0) gm/dL Hct 24.2 L (34.0-46.0) % Sodium 133 L (137-145) mmol/L Chloride 97 L (98-107) mmol/L BUN 42 H (7-17) mg/dL Creatinine 3.99 H (0.52-1.04) mg/dL Glucose 155 H (74-99) mg/dL POC Glucose (mg/dL) (70-110) mg/dL Hemoglobin A1c 7.8 H (<=6.0) % 01/02/24 01/02/24 01/02/24 Range/Units 11:23 16:16 20:07 WBC (3.8-10.6) k/uL RBC (3.80-5.40) m/uL Hgb (11.4-16.0) gm/dL Hct (34.0-46.0) % Sodium (137-145) mmol/L Chloride (98-107) mmol/L BUN (7-17) mg/dL Creatinine (0.52-1.04) mg/dL Glucose (74-99) mg/dL POC Glucose (mg/dL) 379 H 353 H 246 H (70-110) mg/dL Hemoglobin A1c (<=6.0) % 01/03/24 Range/Units 06:06 WBC (3.8-10.6) k/uL RBC (3.80-5.40) m/uL Hgb (11.4-16.0) gm/dL Hct (34.0-46.0) % Sodium (137-145) mmol/L Chloride (98-107) mmol/L BUN (7-17) mg/dL Creatinine (0.52-1.04) mg/dL Glucose (74-99) mg/dL POC Glucose (mg/dL) 211 H (70-110) mg/dL Hemoglobin A1c (<=6.0) %
[2024-01-03] MEDS: MAGNESIUM SULFATE-D5W PMX 1 GM in DEXTROSE/WATER 1 100ML.BAG IVPB SCH (13:36)
[2024-01-03 16:08] LABS: Glucose,Whole Blood 186 mg/dL (70-110)
[2024-01-03 20:23] LABS: Glucose,Whole Blood 155 mg/dL (70-110)
[2024-01-04 06:04] LABS: Glucose,Whole Blood 329 mg/dL (70-110)
[2024-01-04 12:08] LABS: Glucose,Whole Blood 229 mg/dL (70-110)
[2024-01-04 13:49] LABS: HCT 24.1 % (34.0-46.0); HGB 7.7 gm/dL (11.4-16.0); MCH 30.3 pg (25.0-35.0); MCHC 31.9 g/dL (31.0-37.0); Mean Platelet Volume 8.1; Platelet Count 377 k/uL (150-450); RBC 2.53 m/uL (3.80-5.40); RDW 15.3 % (11.5-15.5); WBC 9.2 k/uL (3.8-10.6)
[2024-01-04 14:00] LABS: African American GFR (CKD) 33 (>60 ml/min/1.73 sqM); Anion Gap 10 mmol/L; Blood Urea Nitrogen 19 mg/dL (7-17); Calcium 8.3 mg/dL (8.4-10.2); Carbon Dioxide 26 mmol/L (22-30); Chloride 97 mmol/L (98-107); Glucose 284 mg/dL (74-99); Magnesium 1.8 mg/dL (1.6-2.3); Non-African American GFR(CKD) 29 (>60 ml/min/1.73 sqM); Potassium 4.3 mmol/L (3.5-5.1); Sodium 133 mmol/L (137-145)
--- NOTE | 2024-01-04 14:45 | P.PN ---
Subjective Progress Note Date: 01/04/24 Hospital course: Patient is a 33-year-old female with a past medical history of ESRD on hemodialysis, type 1 diabetes, hypertension, and dyslipidemia. She presented to the emergency department on 12/27/2023 with acute on chronic shortness of breath. She first discovered about renal disease when she became , and subsequently was preeclamptic at the later stages of . She was started on hemodialysis 1 month prior to delivery. She remained on hemodialysis ever since and is currently planning on getting pancreatic and renal transplant at [facility]. However, 3 weeks ago, she developed sudden onset bilateral vision loss. She initially presented to [facility], and was transferred to [facility]. She claims that workup at that hospital showed possible infection of the eye and was started on IV antibiotics and later discharged on oral antibiotics. She was only home for 1 day before she then started developing worsening shortness of breath and presented to our facility. In the emergency room patient underwent full evaluation. Vital signs upon arrival show patient to be in hypertensive urgency with blood pressure 210/140 and BiPAP dependent with a heart rate in the 130's. She was started on a nitroglycerin drip which improved her blood pressure and heart rate. Labs were completed and reviewed. CBC demonstrated leukocytosis with WBC count of 30.9 and normocytic anemia with hemoglobin of 8.2 BMP revealed hyperkalemia with potassium of 6.3 and renal function consistent with ESRD with BUN of 71, cr eatinine of 6.93, and GFR of 7. Liver profile revealing elevated AST of 44, total protein of 5.7 and albumin of 3.1. Procalcitonin 0.23. VBG showed pH of 7.48 and pCO2 of 33. Coags were unremarkable. Influenza A, influenza B, RSV, and COVID were negative. Chest x-ray demonstrated cardiomegaly with diffuse interstitial infiltrates scattered throughout the lungs. EKG demonstrated sinus tachycardia with a short DC interval, no ischemic changes and no peaked T waves. Patient was admitted under our services and nephrology and neurology were consulted. Records from [facility] were obtained revealing: Patient had dental caries with some facial cellulitis, for which she received anti biotics. Periorbital edema was also noted, unlikely to be infectious. Optic neuritis was ruled out. Patient was seen to have vitreous hemorrhage on the right, probable cause for her worsening right-sided vision. MRI brain also showed small area of infarct in the right occipital lobe. Cardiology was consulted and HAYDER was completed revealing a preserved EF of 55% and did not show any vegetation, PFO or intracardiac shunt. ESR 33 and CRP 5.7. TSH was elevated at 7.230 but free T4 was normal findings at 1.17. On 12/28/23 hemoglobin decreased to 6.7 resulting in transfusion of 1 unit PRBCs. Physical exam: Patient seen and fully evaluated at the bedside this morning. She reports continued shortness of breath, urine output over the past 24 hours is 500 mL. She is currently undergoing scheduled dialysis session. She reports full resolution of previous reported constipation after taking lactulose. She denies having any chest pain, palpitations, nausea, vomiting, dizziness, lightheadedness, or any other complaints at this time. Vital signs reviewed and stable. General: Nontoxic, no distress and appears stated age. Derm: Skin warm and dry, normal coloration for ethnicity. Head: Atraumatic, normocephalic and symmetric. Eyes: Reduced visual acuity bilaterally, worse on the left, pupils equal and reactive to light Mouth: no lip lesions, mucus membranes moist Cardiovascular: regular rate and rhythm with normal S1S2, no murmur, positive posterior tibial pulses bilaterally, and cap refill < 2 seconds. Lungs: Respirations even, regular, and unlabored on room air. Lungs CTA bilaterally, no rhonchi, no rales, no wheezing, and no accessory muscle usage. Abdominal: soft, nontender to palpation, no guarding, no appreciable organomeg stephanie Ext: ROM intact. No gross muscle atrophy, 2+ pitting bilateral upper and lower extremity edema, no contractures Neuro: Speech clear, face symmetrical and CN II-XII grossly intact with no noted focal neuro deficits Psych: Alert and oriented to person, place, time, and situation. Appropriate and pleasant affect. Assessment and Plan of Care: Acute hypoxic respiratory failure, improving Acute pulmonary edema, resolving ESRD on hemodialysis Fluid volume overload Hyperkalemia, currently undergoing dialysis Hyponatremia, secondary to dilution from fluid overload Hypertensive urgency, improved Anemia of chronic disease, hemoglobin stable status post 1 unit of PRBC -Nephrology following and discussed plan of care with check scaler, Dr. Guzmán, Patient has not had any urinary output since undergoing dialysis yesterday despite being started on Lasix 80 mg IVP twice daily, Dr. Guzmán, recommended continuation of Lasix 80 mg BID and continue to monitor for output. -Continue Lasix 80 mg IVP twice daily. -Strict I's and O's, urinary output over the past 24 hours is 550 cc. -Continue dialysis Tuesdays//Saturdays. Patient scheduled to undergo an additional dialysis session today. -Patient to continue low potassium diet, Lokelma 10 g once daily, darbepoetin 40 mcg q. 7 days, and nifedipine was increased to 60 mg twice daily. -Continue to wean oxygen as patient tolerates -Blood pressures better controlled. Continue Coreg 25 mg twice daily, hydralazine 100 mg 3 times daily, and nifedipine 60 mg twice daily Subacute bilateral vision loss Right vitreous hemorrhage Small acute/subacute right occipital infarct -Neurology evaluated, discontinued Plavix as she has been on it for 21 days, continue monotherapy with aspirin 81 mg daily and atorvastatin 40 mg nightly. Neurology recommending placement of 30-day event monitor prior to discharge. -Needs further outpatient follow-up with neurology and ophthalmology -Cardiology following, HAYDER was completed and did not show any vegetations or PFO. Patient may benefit from an event monitor at time of discharge Type 1 diabetes melitis with hyperglycemia -Blood glucose levels remain elevated and have fluctuated between 179 and 337 over the past 24 hours. Levemir increased to 35 units daily, and patient to continue with NovoLog sliding scale insulin. Monitor for hypoglycemia -Hemoglobin A1c 7.8%. Constipation Patient started on lactulose 30 g twice daily Chronic Conditions: Depression and anxiety GERD Hypothyroidism Dyslipidemia -Patient to continue daily medication regimen with aspirin 81 mg daily, ator vastatin 40 mg nightly, carvedilol 25 mg twice daily, Depakote 500 mg twice daily, levothyroxine 176 mcg daily, Procardia 60 mg twice daily, Protonix 40 mg daily, and sertraline 200 mg daily. Data and imaging reviewed: -Morning labs reviewed. CBC showing stable normocytic anemia with hemoglobin of 7.7. BMP revealing hyponatremia with sodium 133 and elevated renal function consistent with ESRD with BUN of 19, creatinine 2.20, and GFR of 29. Magnesium normal findings at 1.8. -Vital signs reviewed. Blood pressure 147/80, heart rate 106, respiratory rate 17, temp 97.8 F, and SpO2 of 94% on 2 L. DVT ppx: NAHED mccollum and SCDs Code status: Full code Anticipated discharge date: Clinical course to determine Anticipated discharge place: Clinical course to determine Patient was seen independently by Nurse Pracitioner. This document was prepared using [employer] dictation software. Please allow for errors in node js developer, while rare they do occur. This patient was seen independently by my colleague Castro DUENAS. I agree with the assessment and plan. Objective - Vital Signs Vital signs: Vital Signs Temp 99.0 F 01/04/24 04:00 Pulse 102 H 01/04/24 04:00 Resp 18 01/04/24 04:00 BP 171/87 01/04/24 04:00 Pulse Ox 91 L 01/04/24 04:00 FiO2 30 01/03/24 15:55 Intake & Output 01/03/24 01/04/24 01/04/24 18:59 06:59 18:59 Intake Total 835 Output Total 3800 200 Balance -2965 -200 Intake: Oral 335 Hemodialysis 500 Output: Urine 300 200 Hemodialysis 3500 Other: Voiding Method Toilet Toilet - Labs CBC & Chem 7: 01/04/24 13:33 01/04/24 13:33 Labs: Abnormal Lab Results - Last 24 Hours (Table) 01/03/24 01/03/24 01/03/24 Range/Units 09:04 09:04 11:15 RBC 2.26 L (3.80-5.40) m/uL Hgb 7.1 L (11.4-16.0) gm/dL Hct 21.6 L (34.0-46.0) % Sodium 131 L (137-145) mmol/L Potassium 5.2 H (3.5-5.1) mmol/L Chloride 97 L (98-107) mmol/L Carbon Dioxide 21 L (22-30) mmol/L BUN 63 H (7-17) mg/dL Creatinine 5.30 H (0.52-1.04) mg/dL Glucose 240 H (74-99) mg/dL POC Glucose (mg/dL) 360 H (70-110) mg/dL 01/03/24 01/03/24 01/04/24 Range/Units 16:05 20:10 05:49 RBC (3.80-5.40) m/uL Hgb (11.4-16.0) gm/dL Hct (34.0-46.0) % Sodium (137-145) mmol/L Potassium (3.5-5.1) mmol/L Chloride (98-107) mmol/L Carbon Dioxide (22-30) mmol/L BUN (7-17) mg/dL Creatinine (0.52-1.04) mg/dL Glucose (74-99) mg/dL POC Glucose (mg/dL) 186 H 155 H 329 H (70-110) mg/dL
[2024-01-04 16:38] LABS: Glucose,Whole Blood 230 mg/dL (70-110)
--- NOTE | 2024-01-04 16:44 | P.PN ---
Subjective Patient is seen for follow-up for end-stage renal disease. Status post UF of 3.5 L yesterday. Shortness of breath has improved but persistent. No chest pains. Patient is seen on hemodialysis. Goal UF about 4.5 L. Objective - Vital Signs Vital signs: Vital Signs Temp 97.8 F 01/04/24 08:39 Pulse 100 01/04/24 12:00 Resp 17 01/04/24 12:00 BP 157/73 01/04/24 12:00 Pulse Ox 94 L 01/04/24 12:07 FiO2 30 01/04/24 12:07 Intake & Output 01/03/24 01/04/24 01/04/24 18:59 06:59 18:59 Intake Total 835 240 Output Total 3800 200 Balance -2965 -200 240 Weight 80.3 kg Intake: Oral 335 240 Hemodialysis 500 Output: Urine 300 200 Hemodialysis 3500 Other: Voiding Method Toilet Toilet Toilet - Exam Patient is awake, comfortable, no acute distress Examination of the heart S1 and S2 Examination of the lungs shows decreased breath sounds at the bases with basilar crackles Abdomen is soft nontender Examination of lower extremities shows 2+ edema 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 Decreased vision. - Labs CBC & Chem 7: 01/04/24 13:33 01/04/24 13:33 Labs: Abnormal Lab Results - Last 24 Hours (Table) 01/03/24 01/04/24 01/04/24 Range/Units 20:10 05:49 12:07 RBC (3.80-5.40) m/uL Hgb (11.4-16.0) gm/dL Hct (34.0-46.0) % Sodium (137-145) mmol/L Chloride (98-107) mmol/L BUN (7-17) mg/dL Creatinine (0.52-1.04) mg/dL Glucose (74-99) mg/dL POC Glucose (mg/dL) 155 H 329 H 229 H (70-110) mg/dL Calcium (8.4-10.2) mg/dL 01/04/24 01/04/24 01/04/24 Range/Units 13:33 13:33 16:36 RBC 2.53 L (3.80-5.40) m/uL Hgb 7.7 L (11.4-16.0) gm/dL Hct 24.1 L (34.0-46.0) % Sodium 133 L (137-145) mmol/L Chloride 97 L (98-107) mmol/L BUN 19 H (7-17) mg/dL Creatinine 2.20 H (0.52-1.04) mg/dL Glucose 284 H (74-99) mg/dL POC Glucose (mg/dL) 230 H (70-110) mg/dL Calcium 8.3 L (8.4-10.2) mg/dL Assessment and Plan Assessment: 1. End-stage renal disease maintained on hemodialysis on Wednesday schedule via right chest permacath. Has a PD catheter but still needs to be trained. Patient will be maintained on peritoneal dialysis if there is improvement in the left eye vision post cataract surgery otherwise the pd catheter will need to be removed. 2. Acute hypoxic respiratory failure. Improved 3. Volume overload. Improved with ultrafiltration. 4. Type 1 diabetes mellitus. 5. Impaired vision due to CVA versus optic neuritis. Neurology following. 6. Hypertension with chronic kidney disease. 7. Hyperkalemia secondary to chronic kidney disease. Improved postdialysis. 8. Anemia of chronic kidney disease. Status post blood transfusion this admission. On Aranesp. Plan: Hemodialysis today and Repeat in a.m. Continue lactulose for constipation
[2024-01-04 20:16] LABS: Glucose,Whole Blood 183 mg/dL (70-110)
[2024-01-05 06:06] LABS: Glucose,Whole Blood 78 mg/dL (70-110)
[2024-01-05 09:52] LABS: HCT 22.6 % (34.0-46.0); HGB 7.4 gm/dL (11.4-16.0); MCH 31.2 pg (25.0-35.0); MCHC 32.9 g/dL (31.0-37.0); MCV 94.9 fL (80.0-100.0); Mean Platelet Volume 7.6; Platelet Count 390 k/uL (150-450); RBC 2.38 m/uL (3.80-5.40); RDW 15.4 % (11.5-15.5)
--- NOTE | 2024-01-05 10:08 | P.PN ---
Subjective Progress Note Date: 01/04/24 Patient was initially seen by Dr. Lakhwinder Thornton. Please refer to his note for details. Patient is a 33-year-old female with visual loss bilateral eyes. She has extensive testing done as outpatient at [facility] with 2 brain MRI, MRV, and ophthalmology consultation and was felt to be due to vitreous hemorrhage and diabetic neuropathy. Patient has recent small right occipital stroke. HAYDER was performed which was negative. Patient needs an event monitor. Patient was seen for a follow-up. Patient has history of diabetes for last 26 years, type I. Patient has history of end-stage renal disease on hemodialysis. Patient states that on 12/10/2023 she woke up and could not see out of right eye at all. She was admitted at [facility] for less than a week and then transferred to [facility] where she stayed for another 2 weeks. Patient was discharged on 12/25/2023 and then was admitted at this facility 2 days later on 12/27/2023 on a Wednesday with chief complaints of difficulty breathing, feeling "drowning" because of fluid overload. She has been here since then. Patient does complain of some headache 04/24. Patient states that at [facility] she was diagnosed with "stroke in the right eye". Left eye is also affected because of diabetic retinopathy and cataract. Patient states that the right eye is almost blind, except for some light that she see on the right lateral side and the small portion of the visual field. In the left eye, she see shadows and some color, but cannot check on the details. Patient states that sometimes she can see perfectly out of left eye only for 10 seconds about once or twice a day. When she blinks, the vision again gets them. Some other workup during his hospital visit consisted of: Initial white blood cell is 30.9 thousand predominately neutrophilic--normalized. ESR 33 Vitamin B12: 882, folate 12.50 TSH: 7.230, free T4: 1.17. We will defer to IM to address abnormal thyroid functions. Sodium is 135, glucose is 100, calcium is 8.5, AST of 44 ALT of 29 B12:882 Serum folate: 12.5 CT of the head is reported as no acute intracranial process to account for the patient's symptoms. Consider MRI for additional workup. I reviewed the CT and agree with report. Carotid duplex was reported as less than 50% stenosis of bilateral carotid bifurcation. 2D echo: Left ventricular EF 55-60%. Small pericardial effusion No tamponade physiology HAYDER: 1. The aortic valve is tricuspid with normal function. 2. The mitral valve appears be normal with mild mitral regurgitation. 3. Tricuspid valve is normal with no vegetation. 4. The interatrial septum is intact. No evidence of PFO. 5. Left atrial appendage is free of clot. 6. Left ventricular ejection fraction 55% 7. No vegetation noted 8. Dialysis catheter noted in right atrium with no vegetation noted on catheter. Objective - Vital Signs Vital signs: Vital Signs Temp 98 F 01/04/24 16:52 Pulse 93 01/04/24 16:52 Resp 18 01/04/24 16:52 BP 152/86 01/04/24 16:52 Pulse Ox 95 01/04/24 16:00 FiO2 30 01/04/24 12:07 Intake & Output 01/03/24 01/04/24 01/04/24 18:59 06:59 18:59 Intake Total 835 962 Output Total 3800 200 4500 Balance -2965 -200 -3538 Weight 80.3 kg Intake: Oral 335 462 Hemodialysis 500 500 Output: Urine 300 200 Hemodialysis 3500 4500 Other: Voiding Method Toilet Toilet Toilet - Exam Patient is alert and awake in no distress. Speech and language functions are normal. Patient knows it is December and the year is 2023 and that she is [facility]. Patient cannot count fingers with the right eye. Her visual armendariz are full on confrontation with the left eye. On muscle strength testing, there is no pronator drift and the strength is normal in arms and legs distally and proximally. No ataxia for [id number] testing. Tone and bulk of muscles normal. Sensations are equal. - Labs CBC & Chem 7: 01/04/24 13:33 01/04/24 13:33 Labs: Abnormal Lab Results - Last 24 Hours (Table) 01/03/24 01/04/24 01/04/24 Range/Units 20:10 05:49 12:07 RBC (3.80-5.40) m/uL Hgb (11.4-16.0) gm/dL Hct (34.0-46.0) % Sodium (137-145) mmol/L Chloride (98-107) mmol/L BUN (7-17) mg/dL Creatinine (0.52-1.04) mg/dL Glucose (74-99) mg/dL POC Glucose (mg/dL) 155 H 329 H 229 H (70-110) mg/dL Calcium (8.4-10.2) mg/dL 01/04/24 01/04/24 01/04/24 Range/Units 13:33 13:33 16:36 RBC 2.53 L (3.80-5.40) m/uL Hgb 7.7 L (11.4-16.0) gm/dL Hct 24.1 L (34.0-46.0) % Sodium 133 L (137-145) mmol/L Chloride 97 L (98-107) mmol/L BUN 19 H (7-17) mg/dL Creatinine 2.20 H (0.52-1.04) mg/dL Glucose 284 H (74-99) mg/dL POC Glucose (mg/dL) 230 H (70-110) mg/dL Calcium 8.3 L (8.4-10.2) mg/dL Assessment and Plan Assessment: This is a 33-year-old woman who has chronic history of diabetes type I, end- stage renal disease on dialysis who presented emergency department because of shortness of breath. It seems that the on 12/10/2023 she went to outside hospital (like [facility] for complete the visual loss over the right eye with eye pain and the blurry vision over the left eye. Patient then was transferred to outside hospital over to [facility] escalation of care. Visual disturbance of both eyes, visual loss over the right eye and blurry vision over the left eye due to multifactorial: diabetic retinopathy and vitreous hemorrhage in both eye and her recent small right occipital stroke. She has two MRI Brain at outside hospital which showed small right occipital stroke and MRV was negative. Was felt unlikely optic neuritis or orbital cellulitis. Recent stroke over the right occipital and left centrum semiovalve on recent MRI at outside hospital: History of right facial droop and dysarthria a couple months ago. The patient s tated that she did not have a stroke at that time when she went to the hospital Leukocytosis is likely reactive due to steroids. Does not have fevers---resolved Dyspnea possibly due to ESRD ESRD on dialysis Chronic Diabetes Mellitus and her last HbA1c is 9.6 on 07/2023--poorly controlled History of seizures on Depakote Hypertension Hypothyroidism Plan: * We obtained the records from [facility]: Per review of records by Dr. Thornton as below: The patient initially prior to transfer to [facility] was at outside hospital on 12/11/2023 for sudden loss of vision over the right eye associate with pain but had left facial swelling and headache. She was having floaters over the left eye for a week and a half prior to presentation. This seems the patient had CT of the face which shows soft tissue swelling with discrete fluid collection dental disease of lateral incision. MRI the brain showed acute to subacute small she was started on IV antibiotic as well as was treated with IV Solu- Medrol starting on 12/14/2023 due to concern for optic neuritis. right occipital and left semiovalve. The patient had dental caries was some facial cellulitis and she received antibiotic.. She received IV antibiotic as well as treated for IV Solu-Medrol for concern for optic neuritis She had a transthoracic echocardiogram which did not show any vegetation or intracardiac shunt. She had carotid duplex was negative for any stenosis. Patient was transferred to [facility] for neuro-ophthalmology evaluation. The ophthalmology team felt her vision issues was due to her diabetic retinopathy and vitreous hemorrhage in both eyes explained her vision change and there is a low concern for optic neuritis. The IV Solu-Medrol was discontinued. Patient had a repeat MRI and it's reported as showed increased size and progressive signal abnormality involving the small right occipital nonhemorrhagic infarct greater than 8 hours. MRV was negative for sinus thrombosis. ID was involved and there is no concern for orbital cellulitis or effective septic emboli. * The patient does not have any worsening under her neurological condition no need for repeat MRI. * Ophthamologist is consulted (Dr. Moncada) and his staff notified our nurse that she is known to them and it seems she has vitreous hemorrhage and had cauterization of eyes. * HAYDER which is negative for PFO or clot. Recommend 30 day event monitor. * She is on aspirin 81 mg daily as well as Lipitor 40 mg daily. No need for dual antiplatelet since not worse of neurological condition and has vitreous hemorrhage. Will defer use of dual antiplatlet to outpatient neurologist if felt the need. * Nephrology and cardiology on board * Recommend the better control of her risk factors, diabetes, hypertension on prison. * We'll defer the rest of the medical management to primary and other specialists * Upon discharge recommend the patient to follow-up with a neurologist as an outpatient within 1-2 weeks and continue to follow-up with her Athletic Team Physician.
[2024-01-05 10:58] LABS: African American GFR (CKD) 19 (>60 ml/min/1.73 sqM); Anion Gap 10 mmol/L; Blood Urea Nitrogen 29 mg/dL (7-17); Calcium 8.6 mg/dL (8.4-10.2); Carbon Dioxide 23 mmol/L (22-30); Chloride 99 mmol/L (98-107); Glucose 208 mg/dL (74-99); Magnesium 1.9 mg/dL (1.6-2.3); Non-African American GFR(CKD) 17 (>60 ml/min/1.73 sqM); Potassium 4.8 mmol/L (3.5-5.1); Sodium 132 mmol/L (137-145)
[2024-01-05 11:47] LABS: Glucose,Whole Blood 364 mg/dL (70-110)
[2024-01-05] MEDS: LABETALOL 5 MG/ML VIAL MDV IVP PRN (12:58)
--- NOTE | 2024-01-05 13:06 | P.PN ---
Subjective Progress Note Date: 01/05/24 Hospital course: Patient is a 33-year-old female with a past medical history of ESRD on hemodialysis, type 1 diabetes, hypertension, and dyslipidemia. She presented to the emergency department on 12/27/2023 with acute on chronic shortness of breath. She first discovered about renal disease when she became , and subsequently was preeclamptic at the later stages of . She was started on hemodialysis 1 month prior to delivery. She remained on hemodialysis ever since and is currently planning on getting pancreatic and renal transplant at [facility]. However, 3 weeks ago, she developed sudden onset bilateral vision loss. She initially presented to [facility], and was transferred to [facility]. She claims that workup at that hospital showed possible infection of the eye and was started on IV antibiotics and later discharged on oral antibiotics. She was only home for 1 day before she then started developing worsening shortness of breath and presented to our facility. In the emergency room patient underwent full evaluation. Vital signs upon arrival show patient to be in hypertensive urgency with blood pressure 210/140 and BiPAP dependent with a heart rate in the 130's. She was started on a nitroglycerin drip which improved her blood pressure and heart rate. Labs were completed and reviewed. CBC demonstrated leukocytosis with WBC count of 30.9 and normocytic anemia with hemoglobin of 8.2 BMP revealed hyperkalemia with potassium of 6.3 and renal function consistent with ESRD with BUN of 71, cr eatinine of 6.93, and GFR of 7. Liver profile revealing elevated AST of 44, total protein of 5.7 and albumin of 3.1. Procalcitonin 0.23. VBG showed pH of 7.48 and pCO2 of 33. Coags were unremarkable. Influenza A, influenza B, RSV, and COVID were negative. Chest x-ray demonstrated cardiomegaly with diffuse interstitial infiltrates scattered throughout the lungs. EKG demonstrated sinus tachycardia with a short [place] interval, no ischemic changes and no peaked T waves. Patient was admitted under our services and nephrology and neurology were consulted. Records from [facility] were obtained revealing: Patient had dental caries with some facial cellulitis, for which she received anti biotics. Periorbital edema was also noted, unlikely to be infectious. Optic neuritis was ruled out. Patient was seen to have vitreous hemorrhage on the right, probable cause for her worsening right-sided vision. MRI brain also showed small area of infarct in the right occipital lobe. Cardiology was consulted and HAYDER was completed revealing a preserved EF of 55% and did not show any vegetation, PFO or intracardiac shunt. ESR 33 and CRP 5.7. TSH was elevated at 7.230 but free T4 was normal findings at 1.17. On 12/28/23 hemoglobin decreased to 6.7 resulting in transfusion of 1 unit PRBCs. Physical exam: Patient seen and fully evaluated at the bedside this morning. She appears to be somewhat improving and has been weaned off of oxygen. Patient sitting up in bed knitting at this time. She is scheduled to undergo another day of dialysis today . Vital signs reviewed and stable. General: Nontoxic, no distress and appears stated age Derm: Skin warm and dry, normal coloration for ethnicity. Head: Atraumatic, normocephalic and symmetric. Eyes: Reduced visual acuity bilaterally, worse on the left, pupils equal and reactive to light Mouth: no lip lesions, mucus membranes moist Cardiovascular: regular rate and rhythm with normal S1S2, no murmur, positive posterior tibial pulses bilaterally, and cap refill < 2 seconds. Lungs: Respirations even, regular, and unlabored on room air. Lungs CTA bilaterally, no rhonchi, no rales, no wheezing, and no accessory muscle usage. Abdominal: soft, nontender to palpation, no guarding, no appreciable organomegaly Ext: ROM intact. No gross muscle atrophy, 2+ pitting bilateral upper and lower extremity edema, no contractures Neuro: Speech clear, face symmetrical and CN II-XII grossly intact with no noted focal neuro deficits Psych: Alert and oriented to person, place, time, and situation. Appropriate and pleasant affect. Assessment and Plan of Care: Acute hypoxic respiratory failure, improving Acute pulmonary edema, resolving ESRD on hemodialysis Fluid volume overload Hyperkalemia, currently undergoing dialysis Hyponatremia, secondary to dilution from fluid overload Hypertensive urgency, improved Anemia of chronic disease, hemoglobin stable status post 1 unit of PRBC -Nephrology following and discussed plan of care with buggy operator, Dr. Lim, Patient to undergo dialysis again today and continue Lasix -Continue Lasix 80 mg IVP twice daily. -Strict I's and O's, urinary output over the past 24 hours is 200 cc. -Continue dialysis Tuesdays//Saturdays. Patient scheduled to undergo an additional dialysis session today. -Patient to continue low potassium diet, Lokelma 10 g once daily, darbepoetin 40 mcg q. 7 days, and nifedipine was increased to 60 mg twice daily. -Continue to wean oxygen as patient tolerates -Blood pressures better controlled. Continue Coreg 25 mg twice daily, hydralazine 100 mg 3 times daily, and nifedipine 60 mg twice daily Subacute bilateral vision loss Right vitreous hemorrhage Small acute/subacute right occipital infarct -Neurology evaluated, discontinued Plavix as she has been on it for 21 days, continue monotherapy with aspirin 81 mg daily and atorvastatin 40 mg nightly. Neurology recommending placement of 30-day event monitor prior to discharge. -Needs further outpatient follow-up with neurology and ophthalmology -Cardiology following, HAYDER was completed and did not show any vegetations or PFO. Patient may benefit from an event monitor at time of discharge Type 1 diabetes melitis with hyperglycemia -Continue Levemir at 35 units daily, and patient to continue with NovoLog sliding scale insulin. Monitor for hypoglycemia -Hemoglobin A1c 7.8%. Constipation Patient started on lactulose 30 g twice daily Chronic Conditions: Depression and anxiety GERD Hypothyroidism Dyslipidemia -Patient to continue daily medication regimen with aspirin 81 mg daily, atorvastatin 40 mg nightly, carvedilol 25 mg twice daily, Depakote 500 mg twice daily, levothyroxine 176 mcg daily, Procardia 60 mg twice daily, Protonix 40 mg daily, and sertraline 200 mg daily. Data and imaging reviewed: -Morning labs reviewed. CBC showing stable normocytic anemia with hemoglobin of 7.4. BMP revealing hyponatremia with sodium 132 and elevated renal function consistent with ESRD with BUN of 29, creatinine 3.45, and GFR of 17. Magnesium normal findings at 1.8. -Vital signs reviewed. Blood pressure 152/90, heart rate 92, respiratory rate 18, temp 98.8 F, and SpO2 of 93% on room air. DVT ppx: NAHED hose and SCDs Code status: Full code Anticipated discharge date: Clinical course to determine Anticipated discharge place: Clinical course to determine Patient was seen independently by Nurse Pracitioner. This document was prepared using [employer] dictation software. Please allow for errors in work order sorting clerk, while rare they do occur. Patient was seen independently by Castro DUENAS. I agree with the assessment and plan done by my colleague. Objective - Vital Signs Vital signs: Vital Signs Temp 96.3 F L 01/05/24 04:00 Pulse 76 01/05/24 04:00 Resp 18 01/05/24 04:00 BP 159/90 01/05/24 04:00 Pulse Ox 95 01/05/24 04:00 FiO2 30 01/04/24 12:07 Intake & Output 01/04/24 01/05/24 01/05/24 18:59 06:59 18:59 Intake Total 1202 Output Total 4500 200 Balance -3298 -200 Weight 76.9 kg Intake: Oral 702 Hemodialysis 500 Output: Urine 200 Hemodialysis 4500 Other: Voiding Method Toilet - Labs CBC & Chem 7: 01/10/24 07:31 01/10/24 07:31 Labs: Abnormal Lab Results - Last 24 Hours (Table) 01/04/24 01/04/24 01/04/24 Range/Units 12:07 13:33 13:33 RBC 2.53 L (3.80-5.40) m/uL Hgb 7.7 L (11.4-16.0) gm/dL Hct 24.1 L (34.0-46.0) % Sodium 133 L (137-145) mmol/L Chloride 97 L (98-107) mmol/L BUN 19 H (7-17) mg/dL Creatinine 2.20 H (0.52-1.04) mg/dL Glucose 284 H (74-99) mg/dL POC Glucose (mg/dL) 229 H (70-110) mg/dL Calcium 8.3 L (8.4-10.2) mg/dL 01/04/24 01/04/24 Range/Units 16:36 20:13 RBC (3.80-5.40) m/uL Hgb (11.4-16.0) gm/dL Hct (34.0-46.0) % Sodium (137-145) mmol/L Chloride (98-107) mmol/L BUN (7-17) mg/dL Creatinine (0.52-1.04) mg/dL Glucose (74-99) mg/dL POC Glucose (mg/dL) 230 H 183 H (70-110) mg/dL Calcium (8.4-10.2) mg/dL
[2024-01-05 16:30] LABS: Glucose,Whole Blood 310 mg/dL (70-110)
--- NOTE | 2024-01-05 16:38 | P.PN ---
Subjective Patient is seen for follow-up for end-stage renal disease. Status post UF of 4.5 L yesterday. Shortness of breath has improved. No chest pains. Objective - Vital Signs Vital signs: Vital Signs Temp 98.4 F 01/05/24 16:00 Pulse 92 01/05/24 16:00 Resp 20 01/05/24 16:00 BP 167/93 01/05/24 16:00 Pulse Ox 95 01/05/24 16:00 FiO2 30 01/05/24 08:00 Intake & Output 01/04/24 01/05/24 01/05/24 18:59 06:59 18:59 Intake Total 1202 600 Output Total 4500 200 Balance -3298 -200 600 Weight 76.9 kg Intake: Oral 702 600 Hemodialysis 500 Output: Urine 200 Hemodialysis 4500 Other: Voiding Method Toilet Toilet - Exam Patient is awake, comfortable, no acute distress Examination of the heart S1 and S2 Examination of the lungs shows decreased breath sounds at the bases with basilar crackles Abdomen is soft nontender Examination of lower extremities shows 2+ edema BLENDER HELPER exam shows patient is able to move all 4 extremities. Decreased vision. - Labs CBC & Chem 7: 01/05/24 08:54 01/05/24 08:54 Labs: Abnormal Lab Results - Last 24 Hours (Table) 01/04/24 01/04/24 01/05/24 Range/Units 16:36 20:13 08:54 RBC 2.38 L (3.80-5.40) m/uL Hgb 7.4 L (11.4-16.0) gm/dL Hct 22.6 L (34.0-46.0) % Sodium (137-145) mmol/L BUN (7-17) mg/dL Creatinine (0.52-1.04) mg/dL Glucose (74-99) mg/dL POC Glucose (mg/dL) 230 H 183 H (70-110) mg/dL 01/05/24 01/05/24 01/05/24 Range/Units 08:54 11:41 16:29 RBC (3.80-5.40) m/uL Hgb (11.4-16.0) gm/dL Hct (34.0-46.0) % Sodium 132 L (137-145) mmol/L BUN 29 H (7-17) mg/dL Creatinine 3.45 H (0.52-1.04) mg/dL Glucose 208 H (74-99) mg/dL POC Glucose (mg/dL) 364 H 310 H (70-110) mg/dL Assessment and Plan Assessment: 1. End-stage renal disease maintained on hemodialysis on Wednesday schedule via right chest permacath. Has a PD catheter but still needs to be trained. Patient will be maintained on peritoneal dialysis if there is improvement in the left eye vision post cataract surgery otherwise the pd catheter will need to be removed. 2. Acute hypoxic respiratory failure. Improved 3. Volume overload. Improved with ultrafiltration. 4. Type 1 diabetes mellitus. 5. Impaired vision due to CVA versus optic neuritis. Neurology following. 6. Hypertension with chronic kidney disease. 7. Hyperkalemia secondary to chronic kidney disease. Improved postdialysis. 8. Anemia of chronic kidney disease. Status post blood transfusion this admission. On Aranesp. Plan: Hemodialysis today and Repeat in a.m. Continue lactulose for constipation
[2024-01-05 20:28] LABS: Glucose,Whole Blood 196 mg/dL (70-110)
[2024-01-06 06:12] LABS: Glucose,Whole Blood 131 mg/dL (70-110)
[2024-01-06 09:40] LABS: HCT 22.3 % (34.0-46.0); HGB 7.4 gm/dL (11.4-16.0); MCH 31.1 pg (25.0-35.0); MCHC 33.2 g/dL (31.0-37.0); MCV 93.7 fL (80.0-100.0); Mean Platelet Volume 8.1; Platelet Count 389 k/uL (150-450); RBC 2.38 m/uL (3.80-5.40); RDW 15.7 % (11.5-15.5); WBC 9.3 k/uL (3.8-10.6)
[2024-01-06 10:05] LABS: African American GFR (CKD) 27 (>60 ml/min/1.73 sqM); Anion Gap 8 mmol/L; Blood Urea Nitrogen 21 mg/dL (7-17); Calcium 8.6 mg/dL (8.4-10.2); Carbon Dioxide 29 mmol/L (22-30); Chloride 96 mmol/L (98-107); Glucose 198 mg/dL (74-99); Magnesium 1.7 mg/dL (1.6-2.3); Non-African American GFR(CKD) 23 (>60 ml/min/1.73 sqM); Potassium 4.5 mmol/L (3.5-5.1); Sodium 133 mmol/L (137-145)
[2024-01-06 11:30] LABS: Glucose,Whole Blood 241 mg/dL (70-110)
--- NOTE | 2024-01-06 12:47 | P.PN ---
Subjective Progress Note Date: 01/06/24 Hospital course: Patient is a 33-year-old female with a past medical history of ESRD on hemodialysis, type 1 diabetes, hypertension, and dyslipidemia. She presented to the emergency department on 12/27/2023 with acute on chronic shortness of breath. She first discovered about renal disease when she became , and subsequently was preeclamptic at the later stages of . She was started on hemodialysis 1 month prior to delivery. She remained on hemodialysis ever since and is currently planning on getting pancreatic and renal transplant at [facility]. However, 3 weeks ago, she developed sudden onset bilateral vision loss. She initially presented to [facility], and was transferred to [facility]. She claims that workup at that hospital showed possible infection of the eye and was started on IV antibiotics and later discharged on oral antibiotics. She was only home for 1 day before she then started developing worsening shortness of breath and presented to our facility. In the emergency room patient underwent full evaluation. Vital signs upon arrival show patient to be in hypertensive urgency with blood pressure 210/140 and BiPAP dependent with a heart rate in the 130's. She was started on a nitroglycerin drip which improved her blood pressure and heart rate. Labs were completed and reviewed. CBC demonstrated leukocytosis with WBC count of 30.9 and normocytic anemia with hemoglobin of 8.2 BMP revealed hyperkalemia with potassium of 6.3 and renal function consistent with ESRD with BUN of 71, cr eatinine of 6.93, and GFR of 7. Liver profile revealing elevated AST of 44, total protein of 5.7 and albumin of 3.1. Procalcitonin 0.23. VBG showed pH of 7.48 and pCO2 of 33. Coags were unremarkable. Influenza A, influenza B, RSV, and COVID were negative. Chest x-ray demonstrated cardiomegaly with diffuse interstitial infiltrates scattered throughout the lungs. EKG demonstrated sinus tachycardia with a short VT interval, no ischemic changes and no peaked T waves. Patient was admitted under our services and nephrology and neurology were consulted. Records from [facility] were obtained revealing: Patient had dental caries with some facial cellulitis, for which she received anti biotics. Periorbital edema was also noted, unlikely to be infectious. Optic neuritis was ruled out. Patient was seen to have vitreous hemorrhage on the right, probable cause for her worsening right-sided vision. MRI brain also showed small area of infarct in the right occipital lobe. Cardiology was consulted and HAYDER was completed revealing a preserved EF of 55% and did not show any vegetation, PFO or intracardiac shunt. ESR 33 and CRP 5.7. TSH was elevated at 7.230 but free T4 was normal findings at 1.17. On 12/28/23 hemoglobin decreased to 6.7 resulting in transfusion of 1 unit PRBCs. Patient has been receiving daily dialysis. She is showing significant improvement and after discussion with polyethylene bag machine operator, tentative plan is for discharge home tomorrow after completion of dialysis session. Physical exam: Patient seen and fully evaluated at the bedside this morning. She appears to be doing well this morning. Her lower extremity edema has significantly improved and upper extremity edema resolved. She is undergoing dialysis today. Di scussed with polyethylene bag machine operator, recommending patient undergo dialysis again tomorrow and she will then be cleared for discharge home. Vital signs reviewed and stable. General: Nontoxic, no distress and appears stated age Derm: Skin warm and dry, normal coloration for ethnicity. Head: Atraumatic, normocephalic and symmetric. Eyes: Reduced visual acuity bilaterally, worse on the left, pupils equal and reactive to light Mouth: no lip lesions, mucus membranes moist Cardiovascular: regular rate and rhythm with normal S1S2, no murmur, positive posterior tibial pulses bilaterally, and cap refill < 2 seconds. Lungs: Respirations even, regular, and unlabored on room air. Lungs CTA bilaterally, no rhonchi, no rales, no wheezing, and no accessory muscle usage. Abdominal: soft, nontender to palpation, no guarding, no appreciable organomegaly Ext: ROM intact. No gross muscle atrophy, scant to 1+ pitting lower extremity edema, no contractures Neuro: Speech clear, face symmetrical and CN II-XII grossly intact with no noted focal neuro deficits Psych: Alert and oriented to person, place, time, and situation. Appropriate and pleasant affect. Assessment and Plan of Care: Acute hypoxic respiratory failure, improving Acute pulmonary edema, resolving ESRD on hemodialysis Fluid volume overload Hyperkalemia, currently undergoing dialysis Hyponatremia, secondary to dilution from fluid overload Hypertensive urgency, improved Anemia of chronic disease, hemoglobin stable status post 1 unit of PRBC -Nephrology following and discussed plan of care with polyethylene bag machine operator, Dr. Lim, Patient to undergo dialysis again today and again tomorrow and then will be cleared for discharge from nephrology standpoint. -Continue Lasix 80 mg IVP twice daily. -Strict I's and O's -Patient to continue low potassium diet, Lokelma 10 g once daily, darbepoetin 40 mcg q. 7 days, and nifedipine 60 mg twice daily. -Continue to wean oxygen as patient tolerates -Blood pressures better controlled. Continue Coreg 25 mg twice daily, hyd ralazine 100 mg 3 times daily, and nifedipine 60 mg twice daily Subacute bilateral vision loss Right vitreous hemorrhage Small acute/subacute right occipital infarct -Neurology evaluated, discontinued Plavix as she has been on it for 21 days, continue monotherapy with aspirin 81 mg daily and atorvastatin 40 mg nightly. Neurology recommending placement of 30-day event monitor prior to discharge. -Needs further outpatient follow-up with neurology and ophthalmology -Cardiology following, HAYDER was completed and did not show any vegetations or PFO. Patient may benefit from an event monitor at time of discharge Type 1 diabetes melitis with hyperglycemia -Continue Levemir at 35 units daily, and patient to continue with NovoLog sliding scale insulin. Monitor for hypoglycemia -Hemoglobin A1c 7.8%. Constipation Patient started on lactulose 30 g twice daily Chronic Conditions: Depression and anxiety GERD Hypothyroidism Dyslipidemia -Patient to continue daily medication regimen with aspirin 81 mg daily, atorvastatin 40 mg nightly, carvedilol 25 mg twice daily, Depakote 500 mg twice daily, levothyroxine 176 mcg daily, Procardia 60 mg twice daily, Protonix 40 mg daily, and sertraline 200 mg daily. Data and imaging reviewed: -Morning labs reviewed. CBC showing stable normocytic anemia with hemoglobin of 7.4. BMP revealing hyponatremia with sodium of 136 and renal function consistent with ESRD with BUN of 21, creatinine 2.62, GFR of 23. Magnesium was slightly low at 1.7 orders placed for Mag-Ox 400 mg p.o. x 1 dose. -Vital signs reviewed. Blood pressure 178/105, heart rate 95, respiratory rate 18, temp 97.8 F, and SpO2 of 97% on 2 L. Patient undergoing dialysis at this time, which should result in improvement of blood pressure along with medication regimen. DVT ppx: NAHED mccollum and SCDs Code status: Full code Anticipated discharge date: Tomorrow after dialysis Anticipated discharge place: Home Patient was seen independently by Nurse Pracitioner. This document was prepared using Dragon dictation software. Please allow for errors in table games floor supervisor, while rare they do occur. Harrison Erazo NP rendered care for this patient independently, reviewed the findings and plan as documented in the note above. I did not physically speak with or examine the patient on this date. Objective - Vital Signs Vital signs: Vital Signs Temp 98.2 F 01/06/24 04:00 Pulse 86 01/06/24 04:00 Resp 18 01/06/24 04:00 BP 120/74 01/06/24 04:00 Pulse Ox 95 01/06/24 04:00 FiO2 30 01/05/24 08:00 Intake & Output 01/05/24 01/06/24 01/06/24 18:59 06:59 18:59 Intake Total 1140 400 Output Total 4400 Balance 1140 -4000 Weight 74.3 kg Intake: Oral 1140 Hemodialysis 400 Output: Hemodialysis 4400 Other: Voiding Method Toilet - Labs CBC & Chem 7: 01/07/24 07:06 01/07/24 07:06 Labs: Abnormal Lab Results - Last 24 Hours (Table) 01/05/24 01/05/24 01/05/24 Range/Units 08:54 08:54 11:41 RBC 2.38 L (3.80-5.40) m/uL Hgb 7.4 L (11.4-16.0) gm/dL Hct 22.6 L (34.0-46.0) % Sodium 132 L (137-145) mmol/L BUN 29 H (7-17) mg/dL Creatinine 3.45 H (0.52-1.04) mg/dL Glucose 208 H (74-99) mg/dL POC Glucose (mg/dL) 364 H (70-110) mg/dL 01/05/24 01/05/24 01/06/24 Range/Units 16:29 20:27 06:10 RBC (3.80-5.40) m/uL Hgb (11.4-16.0) gm/dL Hct (34.0-46.0) % Sodium (137-145) mmol/L BUN (7-17) mg/dL Creatinine (0.52-1.04) mg/dL Glucose (74-99) mg/dL POC Glucose (mg/dL) 310 H 196 H 131 H (70-110) mg/dL
[2024-01-06] MEDS: MAGNESIUM OXIDE 400 MG TAB PO STA (12:55)
--- NOTE | 2024-01-06 13:36 | P.PN ---
Subjective Patient is seen for follow-up for end-stage renal disease. Status post UF of 4.4 L yesterday. Shortness of breath has improved. No chest pains. Seen on hemodialysis today. Tolerating treatment well. Objective - Vital Signs Vital signs: Vital Signs Temp 97.7 F 01/06/24 12:02 Pulse 95 01/06/24 12:02 Resp 18 01/06/24 12:02 BP 198/104 01/06/24 12:02 Pulse Ox 98 01/06/24 12:02 FiO2 30 01/05/24 08:00 Intake & Output 01/05/24 01/06/24 01/06/24 18:59 06:59 18:59 Intake Total 1140 400 218 Output Total 4400 Balance 1140 -4000 218 Weight 74.3 kg Intake: Oral 1140 218 Hemodialysis 400 Output: Hemodialysis 4400 Other: Voiding Method Toilet Toilet - Exam Patient is awake, comfortable, no acute distress Examination of the heart S1 and S2 Examination of the lungs shows decreased breath sounds at the bases with basilar crackles Abdomen is soft nontender Examination of lower extremities shows 2+ edema FLOUR INSPECTOR exam shows patient is able to move all 4 extremities. Decreased vision. - Labs CBC & Chem 7: 01/06/24 08:42 01/06/24 08:42 Labs: Abnormal Lab Results - Last 24 Hours (Table) 01/05/24 01/05/24 01/06/24 Range/Units 16:29 20:27 06:10 RBC (3.80-5.40) m/uL Hgb (11.4-16.0) gm/dL Hct (34.0-46.0) % RDW (11.5-15.5) % Sodium (137-145) mmol/L Chloride (98-107) mmol/L BUN (7-17) mg/dL Creatinine (0.52-1.04) mg/dL Glucose (74-99) mg/dL POC Glucose (mg/dL) 310 H 196 H 131 H (70-110) mg/dL 01/06/24 01/06/24 01/06/24 Range/Units 08:42 08:42 11:26 RBC 2.38 L (3.80-5.40) m/uL Hgb 7.4 L (11.4-16.0) gm/dL Hct 22.3 L (34.0-46.0) % RDW 15.7 H (11.5-15.5) % Sodium 133 L (137-145) mmol/L Chloride 96 L (98-107) mmol/L BUN 21 H (7-17) mg/dL Creatinine 2.62 H (0.52-1.04) mg/dL Glucose 198 H (74-99) mg/dL POC Glucose (mg/dL) 241 H (70-110) mg/dL Assessment and Plan Assessment: 1. End-stage renal disease maintained on hemodialysis on Wednesday schedule via right chest permacath. Has a PD catheter but still needs to be trained. Patient will be maintained on peritoneal dialysis if there is improvement in the left eye vision post cataract surgery otherwise the pd catheter will need to be removed. 2. Acute hypoxic respiratory failure. Improved 3. Volume overload. Improved with ultrafiltration. 4. Type 1 diabetes mellitus. 5. Impaired vision due to CVA versus optic neuritis. Neurology following. 6. Hypertension with chronic kidney disease. 7. Hyperkalemia secondary to chronic kidney disease. Improved postdialysis. 8. Anemia of chronic kidney disease. Status post blood transfusion this admission. On Aranesp. Plan: Hemodialysis today and Repeat in a.m. Continue lactulose for constipation
[2024-01-06 16:36] LABS: Glucose,Whole Blood 244 mg/dL (70-110)
[2024-01-06 20:08] LABS: Glucose,Whole Blood 201 mg/dL (70-110)
[2024-01-07 06:18] LABS: Glucose,Whole Blood 205 mg/dL (70-110)
[2024-01-07 07:45] LABS: HCT 25.4 % (34.0-46.0); HGB 8.2 gm/dL (11.4-16.0); MCH 30.7 pg (25.0-35.0); MCHC 32.2 g/dL (31.0-37.0); MCV 95.5 fL (80.0-100.0); Mean Platelet Volume 7.8; Platelet Count 446 k/uL (150-450); RBC 2.66 m/uL (3.80-5.40); RDW 15.8 % (11.5-15.5); WBC 10.1 k/uL (3.8-10.6)
[2024-01-07 07:58] LABS: African American GFR (CKD) 24 (>60 ml/min/1.73 sqM); Anion Gap 10 mmol/L; Blood Urea Nitrogen 26 mg/dL (7-17); Calcium 9.2 mg/dL (8.4-10.2); Carbon Dioxide 25 mmol/L (22-30); Chloride 98 mmol/L (98-107); Glucose 234 mg/dL (74-99); Magnesium 1.8 mg/dL (1.6-2.3); Non-African American GFR(CKD) 21 (>60 ml/min/1.73 sqM); Potassium 4.8 mmol/L (3.5-5.1); Sodium 133 mmol/L (137-145)
--- NOTE | 2024-01-07 10:53 | P.PN ---
Subjective Patient is seen for follow-up for end-stage renal disease. Status post UF of 4.5 L yesterday. Shortness of breath has improved. No chest pains. Seen on hemodialysis today. Tolerating treatment well. Objective - Vital Signs Vital signs: Vital Signs Temp 97.7 F 01/07/24 08:35 Pulse 86 01/07/24 08:35 Resp 18 01/07/24 08:35 BP 147/85 01/07/24 08:35 Pulse Ox 99 01/07/24 08:35 FiO2 30 01/05/24 08:00 Intake & Output 01/06/24 01/07/24 01/07/24 18:59 06:59 18:59 Intake Total 1138 600 Output Total 4500 Balance -3362 600 Weight 71.8 kg Intake: Oral 638 600 Hemodialysis 500 Output: Hemodialysis 4500 Other: Voiding Method Toilet Toilet Toilet - Exam Patient is awake, comfortable, no acute distress Abdomen is soft nontender Examination of lower extremities shows trace edema CAKE WINDER exam shows patient is able to move all 4 extremities. Decreased vision. - Labs CBC & Chem 7: 01/07/24 07:06 01/07/24 07:06 Labs: Abnormal Lab Results - Last 24 Hours (Table) 01/06/24 01/06/24 01/06/24 Range/Units 11:26 16:35 20:05 RBC (3.80-5.40) m/uL Hgb (11.4-16.0) gm/dL Hct (34.0-46.0) % RDW (11.5-15.5) % Sodium (137-145) mmol/L BUN (7-17) mg/dL Creatinine (0.52-1.04) mg/dL Glucose (74-99) mg/dL POC Glucose (mg/dL) 241 H 244 H 201 H (70-110) mg/dL 01/07/24 01/07/24 01/07/24 Range/Units 06:14 07:06 07:06 RBC 2.66 L (3.80-5.40) m/uL Hgb 8.2 L (11.4-16.0) gm/dL Hct 25.4 L (34.0-46.0) % RDW 15.8 H (11.5-15.5) % Sodium 133 L (137-145) mmol/L BUN 26 H (7-17) mg/dL Creatinine 2.89 H (0.52-1.04) mg/dL Glucose 234 H (74-99) mg/dL POC Glucose (mg/dL) 205 H (70-110) mg/dL Assessment and Plan Assessment: 1. End-stage renal disease maintained on hemodialysis on Wednesday schedule via right chest permacath. Has a PD catheter but still needs to be trained. Patient will be maintained on peritoneal dialysis if there is improvement in the left eye vision post cataract surgery otherwise the pd catheter will need to be removed. 2. Acute hypoxic respiratory failure. Improved 3. Volume overload. Improved with ultrafiltration. 4. Type 1 diabetes mellitus. 5. Impaired vision due to CVA versus optic neuritis. Neurology following. 6. Hypertension with chronic kidney disease. 7. Hyperkalemia secondary to chronic kidney disease. Improved postdialysis. 8. Anemia of chronic kidney disease. Status post blood transfusion this admission. On Aranesp. Plan: Hemodialysis today and Repeat in a.m. Continue lactulose for constipation
[2024-01-07 11:20] LABS: Glucose,Whole Blood 229 mg/dL (70-110)
--- NOTE | 2024-01-07 12:00 | P.PN ---
Subjective Progress Note Date: 01/06/24 01/06/2024: Patient was seen for a follow-up. Patient is sitting comfortably in the bed having dinner. Patient states she feels exhausted. Patient states her right eye is completely dark. In the left eye, she has blurred vision. Patient states her memory is getting worse. Patient states that she follows up with [facility] and also follows up with Dr. Thompson for left eye vitreous hemorrhage. 01/04/2024: Patient was initially seen by Dr. Lakhwinder Thornton. Please refer to his note for details. Patient is a 33-year-old female with visual loss bilateral eyes. She has extensive testing done as outpatient at [facility] with 2 brain MRI, MRV, and ophthalmology consultation and was felt to be due to vitreous hemorrhage and diabetic neuropathy. Patient has recent small right occipital stroke. HAYDER was performed which was negative. Patient needs an event monitor. Patient was seen for a follow-up. Patient has history of diabetes for last 26 years, type I. Patient has history of end-stage renal disease on hemodialysis. Patient states that on 12/10/2023 she woke up and could not see out of right eye at all. She was admitted at [facility] for less than a week and then transferred to [facility] where she stayed for another 2 weeks. Patient was discharged on 12/25/2023 and then was admitted at this facility 2 days later on 12/27/2023 on a Wednesday with chief complaints of difficulty breathing, feeling "drowning" because of fluid overload. She has been here since then. Patient does complain of some headache 04/24. Patient states that at [facility] she was diagnosed with "stroke in the right eye". Left eye is also affected because of diabetic retinopathy and cataract. Patient states that the right eye is almost blind, except for some light that she see on the right lateral side and the small portion of the visual field. In the left eye, she see shadows and some color, but cannot check on the details. Patient states that sometimes she can see perfectly out of left eye only for 10 seconds about once or twice a day. When she blinks, the vision again gets them. Some other workup during his hospital visit consisted of: Initial white blood cell is 30.9 thousand predominately neutrophilic--n ormalized. ESR 33 Vitamin B12: 882, folate 12.50 TSH: 7.230, free T4: 1.17. We will defer to IM to address abnormal thyroid functions. Sodium is 135, glucose is 100, calcium is 8.5, AST of 44 ALT of 29 B12:882 Serum folate: 12.5 CT of the head is reported as no acute intracranial process to account for the patient's symptoms. Consider MRI for additional workup. I reviewed the CT and agree with report. Carotid duplex was reported as less than 50% stenosis of bilateral carotid bifurcation. 2D echo: Left ventricular EF 55-60%. Small pericardial effusion No tamponade physiology HAYDER: 1. The aortic valve is tricuspid with normal function. 2. The mitral valve appears be normal with mild mitral regurgitation. 3. Tricuspid valve is normal with no vegetation. 4. The interatrial septum is intact. No evidence of PFO. 5. Left atrial appendage is free of clot. 6. Left ventricular ejection fraction 55% 7. No vegetation noted 8. Dialysis catheter noted in right atrium with no vegetation noted on catheter. Objective - Vital Signs Vital signs: Vital Signs Temp 97.6 F 01/06/24 16:51 Pulse 95 01/06/24 16:00 Resp 16 01/06/24 16:51 BP 190/101 01/06/24 16:51 Pulse Ox 97 01/06/24 16:00 FiO2 30 01/05/24 08:00 Intake & Output 01/05/24 01/06/24 01/06/24 18:59 06:59 18:59 Intake Total 9635 545 3262 Output Total 4400 4500 Balance 1140 -4000 -3362 Weight 74.3 kg Intake: Oral 1140 638 Hemodialysis 400 500 Output: Hemodialysis 4400 4500 Other: Voiding Method Toilet Toilet - Exam Patient is alert and awake in no distress. Speech and language functions are normal. Patient knows it is December and the year is 2023 and that she is [facility]. Patient cannot count fingers with the right eye. Her visual armendariz are full on confrontation with the left eye. Her visual acuity is 20/32 left eye. On muscle strength testing, there is no pronator drift and the strength is normal in arms and legs distally and proximally. No ataxia for [id number] testing. Tone and bulk of muscles normal. Sensations are equal. - Labs CBC & Chem 7: 01/07/24 07:06 01/07/24 07:06 Labs: Abnormal Lab Results - Last 24 Hours (Table) 01/05/24 01/06/24 01/06/24 Range/Units 20:27 06:10 08:42 RBC 2.38 L (3.80-5.40) m/uL Hgb 7.4 L (11.4-16.0) gm/dL Hct 22.3 L (34.0-46.0) % RDW 15.7 H (11.5-15.5) % Sodium (137-145) mmol/L Chloride (98-107) mmol/L BUN (7-17) mg/dL Creatinine (0.52-1.04) mg/dL Glucose (74-99) mg/dL POC Glucose (mg/dL) 196 H 131 H (70-110) mg/dL 01/06/24 01/06/24 01/06/24 Range/Units 08:42 11:26 16:35 RBC (3.80-5.40) m/uL Hgb (11.4-16.0) gm/dL Hct (34.0-46.0) % RDW (11.5-15.5) % Sodium 133 L (137-145) mmol/L Chloride 96 L (98-107) mmol/L BUN 21 H (7-17) mg/dL Creatinine 2.62 H (0.52-1.04) mg/dL Glucose 198 H (74-99) mg/dL POC Glucose (mg/dL) 241 H 244 H (70-110) mg/dL Assessment and Plan Assessment: This is a 33-year-old woman who has chronic history of diabetes type I, end- stage renal disease on dialysis who presented emergency department because of shortness of breath. It seems that the on 12/10/2023 she went to outside hospital (like [facility] for complete the visual loss over the right eye with eye pain and the blurry vision over the left eye. Patient then was transferred to outside hospital over to [facility] escalation of care. Visual disturbance of both eyes, visual loss over the right eye and blurry vision over the left eye due to multifactorial: diabetic retinopathy and vitreous hemorrhage in both eye and her recent small right occipital stroke. She has two MRI Brain at outside hospital which showed small right occipital stroke and MRV was negative. Was felt unlikely optic neuritis or orbital cellulitis. Recent stroke over the right occipital and left centrum semiovalve on recent MRI at outside hospital: History of right facial droop and dysarthria a couple months ago. The patient stated that she did not have a stroke at that time when she went to the hospital Leukocytosis is likely reactive due to steroids. Does not have fevers---resol maurice Dyspnea possibly due to ESRD ESRD on dialysis since 04/21/2023 Chronic Diabetes Mellitus, with current A1c 7.8 (her previous HbA1c is 9.6 on 07/2023) History of seizures on Depakote Hypertension Hypothyroidism Plan: * We obtained the records from [facility]: Per review of records by Dr. Thornton as below: The patient initially prior to transfer to [facility] was at outside hospital on 12/11/2023 for sudden loss of vision over the right eye associate with pain but had left facial swelling and headache. She was having floaters over the left eye for a week and a half prior to presentation. This seems the patient had CT of the face which shows soft tissue swelling with discrete fluid collection dental disease of lateral incision. MRI the brain showed acute to subacute small she was started on IV antibiotic as well as was treated with IV Solu- Medrol starting on 12/14/2023 due to concern for optic neuritis. right occipital and left semiovalve. The patient had dental caries was some facial cellulitis and she received antibiotic.. She received IV antibiotic as well as treated for IV Solu-Medrol for concern for optic neuritis She had a transthorac ic echocardiogram which did not show any vegetation or intracardiac shunt. She had carotid duplex was negative for any stenosis. Patient was transferred to [facility] for neuro-ophthalmology evaluation. The ophthalmology team felt her vision issues was due to her diabetic retinopathy and vitreous hemorrhage in both eyes explained her vision change and there is a low concern for optic neuritis. The IV Solu-Medrol was discontinued. Patient had a repeat MRI and it's reported as showed increased size and progressive signal abnormality involving the small right occipital nonhemorrhagic infarct greater than 8 hours. MRV was negative for sinus thrombosis. ID was involved and there is no concern for orbital cellulitis or effective septic emboli. * The patient does not have any worsening of underlying neurological condition, no need for repeat MRI. * Ophthamologist is consulted (Dr. Moncada) and his staff notified our nurse that she is known to them and it seems she has vitreous hemorrhage and had cauterization of eyes. * HAYDER which is negative for PFO or clot. Recommend 30 day event monitor. * She is on aspirin 81 mg daily as well as Lipitor 40 mg daily. No need for dual antiplatelet since not worse of neurological condition and has vitreous hemorrhage. Will defer use of dual antiplatlet to outpatient neurologist if felt the need. * Nephrology and cardiology on board * Recommend the better control of her risk factors, diabetes, hypertension on shelter. * We'll defer the rest of the medical management to primary and other specialists * Upon discharge recommend the patient to follow-up with a neurologist and her cigarette book maker as an outpatient within 1-2 weeks. Neurologically clear. Please call neurology if any other concerns.
[2024-01-07 16:23] LABS: Glucose,Whole Blood 415 mg/dL (70-110)
--- NOTE | 2024-01-07 16:47 | P.PN ---
Subjective Progress Note Date: 01/07/24 Hospital course: Patient is a 33-year-old female with a past medical history of ESRD on hemodialysis, type 1 diabetes, hypertension, and dyslipidemia. She presented to the emergency department on 12/27/2023 with acute on chronic shortness of breath. She first discovered about renal disease when she became , and subsequently was preeclamptic at the later stages of . She was started on hemodialysis 1 month prior to delivery. She remained on hemodialysis ever since and is currently planning on getting pancreatic and renal transplant at [facility]. However, 3 weeks ago, she developed sudden onset bilateral vision loss. She initially presented to [facility], and was transferred to [facility]. She claims that workup at that hospital showed possible infection of the eye and was started on IV antibiotics and later discharged on oral antibiotics. She was only home for 1 day before she then started developing worsening shortness of breath and presented to our facility. In the emergency room patient underwent full evaluation. Vital signs upon arrival show patient to be in hypertensive urgency with blood pressure 210/140 and BiPAP dependent with a heart rate in the 130's. She was started on a nitroglycerin drip which improved her blood pressure and heart rate. Labs were completed and reviewed. CBC demonstrated leukocytosis with WBC count of 30.9 and normocytic anemia with hemoglobin of 8.2 BMP revealed hyperkalemia with potassium of 6.3 and renal function consistent with ESRD with BUN of 71, cr eatinine of 6.93, and GFR of 7. Liver profile revealing elevated AST of 44, total protein of 5.7 and albumin of 3.1. Procalcitonin 0.23. VBG showed pH of 7.48 and pCO2 of 33. Coags were unremarkable. Influenza A, influenza B, RSV, and COVID were negative. Chest x-ray demonstrated cardiomegaly with diffuse interstitial infiltrates scattered throughout the lungs. EKG demonstrated sinus tachycardia with a short ID interval, no ischemic changes and no peaked T waves. Patient was admitted under our services and nephrology and neurology were consulted. Records from [facility] were obtained revealing: Patient had dental caries with some facial cellulitis, for which she received anti biotics. Periorbital edema was also noted, unlikely to be infectious. Optic neuritis was ruled out. Patient was seen to have vitreous hemorrhage on the right, probable cause for her worsening right-sided vision. MRI brain also showed small area of infarct in the right occipital lobe. Cardiology was consulted and HAYDER was completed revealing a preserved EF of 55% and did not show any vegetation, PFO or intracardiac shunt. ESR 33 and CRP 5.7. TSH was elevated at 7.230 but free T4 was normal findings at 1.17. On 12/28/23 hemoglobin decreased to 6.7 resulting in transfusion of 1 unit PRBCs. Patient has been receiving daily dialysis. She is showing significant improvement and after discussion with data report analyst, tentative plan is for discharge home tomorrow after completion of dialysis session. Physical exam: Patient seen and fully evaluated at the bedside this morning. She continues to appear to be doing well this morning. She is currently undergoing dialysis session. Per data report analyst, patient to remain in the hospital an additional ni ght and undergo dialysis again tomorrow morning and will be cleared for discharge. Vital signs reviewed and stable. General: Nontoxic, no distress and appears stated age Derm: Skin warm and dry, normal coloration for ethnicity. Head: Atraumatic, normocephalic and symmetric. Eyes: Reduced visual acuity bilaterally, worse on the left, pupils equal and reactive to light Mouth: no lip lesions, mucus membranes moist Cardiovascular: regular rate and rhythm with normal S1S2, no murmur, positive p osterior tibial pulses bilaterally, and cap refill < 2 seconds. Lungs: Respirations even, regular, and unlabored on room air. Lungs CTA bilaterally, no rhonchi, no rales, no wheezing, and no accessory muscle usage. Abdominal: soft, nontender to palpation, no guarding, no appreciable organomegaly Ext: ROM intact. No gross muscle atrophy, scant lower extremity edema, no contractures Neuro: Speech clear, face symmetrical and CN II-XII grossly intact with no noted focal neuro deficits Psych: Alert and oriented to person, place, time, and situation. Appropriate and pleasant affect. Assessment and Plan of Care: Acute hypoxic respiratory failure, improving Acute pulmonary edema, resolving ESRD on hemodialysis Fluid volume overload Hyperkalemia, currently undergoing dialysis Hyponatremia, secondary to dilution from fluid overload Hypertensive urgency, improved Anemia of chronic disease, hemoglobin stable status post 1 unit of PRBC -Nephrology following and discussed plan of care with data report analyst, Dr. Lim, Patient to undergo dialysis again today and again tomorrow and then will be cleared for discharge from nephrology standpoint. -Continue Lasix 80 mg IVP twice daily. -Strict I's and O's, documented output over the past 24 hours is 500 cc. -Patient to continue low potassium diet, Lokelma 10 g once daily, darbepoetin 40 mcg q. 7 days, and nifedipine 60 mg twice daily. -Continue to wean oxygen as patient tolerates -Blood pressures better controlled. Continue Coreg 25 mg twice daily, hydralazi ne 100 mg 3 times daily, and nifedipine 60 mg twice daily Subacute bilateral vision loss Right vitreous hemorrhage Small acute/subacute right occipital infarct -Neurology evaluated, discontinued Plavix as she has been on it for 21 days, continue monotherapy with aspirin 81 mg daily and atorvastatin 40 mg nightly. Neurology recommending placement of 30-day event monitor prior to discharge. -Needs further outpatient follow-up with neurology and ophthalmology -Cardiology following, HAYDER was completed and did not show any vegetations or PFO. Patient may benefit from an event monitor at time of discharge Type 1 diabetes melitis with hyperglycemia -Continue Levemir at 35 units daily, and patient to continue with NovoLog sliding scale insulin. Monitor for hypoglycemia -Hemoglobin A1c 7.8%. Constipation Patient started on lactulose 30 g twice daily Chronic Conditions: Depression and anxiety GERD Hypothyroidism Dyslipidemia -Patient to continue daily medication regimen with aspirin 81 mg daily, atorvastatin 40 mg nightly, carvedilol 25 mg twice daily, Depakote 500 mg twice daily, levothyroxine 176 mcg daily, Procardia 60 mg twice daily, Protonix 40 mg daily, and sertraline 200 mg daily. Data and imaging reviewed: -Morning labs reviewed. CBC showing normocytic anemia with hemoglobin of 8.2. BMP revealing hyponatremia with sodium of 133 and elevated renal function with BUN of 26, creatinine 2.89, GFR of 21. Blood glucose elevated at 234 and magnesium normal at 1.8. -Vital signs reviewed. Blood pressure 147/85, heart rate 86, respiratory rate 18, temp 97.7 F, and SpO2 of 99% on 2 L. -Documented urinary output over the past 24 hours is 500 cc -Patient has lost a total of 12.1 kg or 26.6 lbs since admission through di uresis and dialysis. DVT ppx: NAHED mccollum and SCDs Code status: Full code Anticipated discharge date: Tomorrow after dialysis Anticipated discharge place: Home Patient was seen independently by Nurse Pracitioner. This document was prepared using [employer] dictation software. Please allow for errors in underwriting director, while rare they do occur. Harrison Erazo KEY ACCOUNT EXECUTIVE rendered care for this patient independently, reviewed the findings and plan as documented in the note above. I did not physically speak with or examine the patient on this date. Objective - Vital Signs Vital signs: Vital Signs Temp 98.1 F 01/07/24 04:00 Pulse 86 01/07/24 04:00 Resp 19 01/07/24 04:00 BP 159/86 01/07/24 04:00 Pulse Ox 96 01/07/24 04:00 FiO2 30 01/05/24 08:00 Intake & Output 01/06/24 01/07/24 01/07/24 18:59 06:59 18:59 Intake Total 1138 Output Total 4500 Balance -3362 Weight 71.8 kg Intake: Oral 638 Hemodialysis 500 Output: Hemodialysis 4500 Other: Voiding Method Toilet Toilet - Labs CBC & Chem 7: 01/07/24 07:06 01/07/24 07:06 Labs: Abnormal Lab Results - Last 24 Hours (Table) 01/06/24 01/06/24 01/06/24 Range/Units 08:42 08:42 11:26 RBC 2.38 L (3.80-5.40) m/uL Hgb 7.4 L (11.4-16.0) gm/dL Hct 22.3 L (34.0-46.0) % RDW 15.7 H (11.5-15.5) % Sodium 133 L (137-145) mmol/L Chloride 96 L (98-107) mmol/L BUN 21 H (7-17) mg/dL Creatinine 2.62 H (0.52-1.04) mg/dL Glucose 198 H (74-99) mg/dL POC Glucose (mg/dL) 241 H (70-110) mg/dL 01/06/24 01/06/24 01/07/24 Range/Units 16:35 20:05 06:14 RBC (3.80-5.40) m/uL Hgb (11.4-16.0) gm/dL Hct (34.0-46.0) % RDW (11.5-15.5) % Sodium (137-145) mmol/L Chloride (98-107) mmol/L BUN (7-17) mg/dL Creatinine (0.52-1.04) mg/dL Glucose (74-99) mg/dL POC Glucose (mg/dL) 244 H 201 H 205 H (70-110) mg/dL 01/07/24 01/07/24 Range/Units 07:06 07:06 RBC 2.66 L (3.80-5.40) m/uL Hgb 8.2 L (11.4-16.0) gm/dL Hct 25.4 L (34.0-46.0) % RDW 15.8 H (11.5-15.5) % Sodium 133 L (137-145) mmol/L Chloride (98-107) mmol/L BUN 26 H (7-17) mg/dL Creatinine 2.89 H (0.52-1.04) mg/dL Glucose 234 H (74-99) mg/dL POC Glucose (mg/dL) (70-110) mg/dL
[2024-01-07 20:17] LABS: Glucose,Whole Blood 274 mg/dL (70-110)
[2024-01-08 06:13] LABS: Glucose,Whole Blood 94 mg/dL (70-110)
--- NOTE | 2024-01-08 10:20 | P.PN ---
Subjective Patient is seen for follow-up for end-stage renal disease. Status post UF of 4.4 L yesterday. Shortness of breath has improved. No chest pains. Leg swellings almost completely resolved Starting hemodialysis. Patient states she is weak and may be considering short-term rehab stay. Patient states she feels very unsteady on walking. Objective - Vital Signs Vital signs: Vital Signs Temp 98.0 F 01/08/24 08:08 Pulse 89 01/08/24 08:08 Resp 15 01/08/24 08:08 BP 146/71 01/08/24 08:08 Pulse Ox 96 01/08/24 08:08 FiO2 30 01/05/24 08:00 Intake & Output 01/07/24 01/08/24 01/08/24 18:59 06:59 18:59 Intake Total 1447 240 480 Output Total 4400 Balance -2953 240 480 Weight 69.6 kg Intake: Oral 1047 240 480 Hemodialysis 400 Output: Hemodialysis 4400 Other: Voiding Method Toilet Toilet - Exam Patient is awake, comfortable, no acute distress Examination of the heart S1 and S2 Examination of the lungs bilateral breath sounds are heard Abdomen is soft nontender Examination of lower extremities shows trace edema CHART CHANGER exam shows patient is able to move all 4 extremities. Decreased vision. - Labs CBC & Chem 7: 01/07/24 07:06 01/07/24 07:06 Labs: Abnormal Lab Results - Last 24 Hours (Table) 01/07/24 01/07/24 01/07/24 Range/Units 11:19 16:21 20:15 POC Glucose (mg/dL) 229 H 415 H 274 H (70-110) mg/dL Assessment and Plan Assessment: 1. End-stage renal disease maintained on hemodialysis on Wednesday schedule via right chest permacath. Has a PD catheter but still needs to be trained. Patient will be maintained on peritoneal dialysis if there is improvement in the left eye vision post cataract surgery otherwise the pd catheter will need to be removed. 2. Acute hypoxic respiratory failure. Improved 3. Volume overload. Improved with ultrafiltration. 4. Type 1 diabetes mellitus. 5. Impaired vision due to CVA versus optic neuritis. Neurology following. 6. Hypertension with chronic kidney disease. 7. Hyperkalemia secondary to chronic kidney disease. Improved postdialysis. 8. Anemia of chronic kidney disease. Status post blood transfusion this admission. On Arap. Plan: Hemodialysis today. If patient is not discharged she will be dialyzed on 01/10/2024 Continue lactulose for constipation
[2024-01-08 11:19] LABS: Glucose,Whole Blood 321 mg/dL (70-110)
--- NOTE | 2024-01-08 14:39 | P.PN ---
Subjective Progress Note Date: 01/08/24 Hospital course: Patient is a 33-year-old female with a past medical history of ESRD on hemodialysis, type 1 diabetes, hypertension, and dyslipidemia. She presented to the emergency department on 12/27/2023 with acute on chronic shortness of breath. She first discovered about renal disease when she became , and subsequently was preeclamptic at the later stages of . She was started on hemodialysis 1 month prior to delivery. She remained on hemodialysis ever since and is currently planning on getting pancreatic and renal transplant at [facility]. However, 3 weeks ago, she developed sudden onset bilateral vision loss. She initially presented to [facility], and was transferred to [facility]. She claims that workup at that hospital showed possible infection of the eye and was started on IV antibiotics and later discharged on oral antibiotics. She was only home for 1 day before she then started developing worsening shortness of breath and presented to our facility. In the emergency room patient underwent full evaluation. Vital signs upon arr ival show patient to be in hypertensive urgency with blood pressure 210/140 and BiPAP dependent with a heart rate in the 130's. She was started on a nitroglycerin drip which improved her blood pressure and heart rate. Labs were completed and reviewed. CBC demonstrated leukocytosis with WBC count of 30.9 and normocytic anemia with hemoglobin of 8.2 BMP revealed hyperkalemia with potassium of 6.3 and renal function consistent with ESRD with BUN of 71, creatinine of 6.93, and GFR of 7. Liver profile revealing elevated AST of 44, total protein of 5.7 and albumin of 3.1. Procalcitonin 0.23. VBG showed pH of 7.48 and pCO2 of 33. Coags were unremarkable. Influenza A, influenza B, RSV, and COVID were negative. Chest x-ray demonstrated cardiomegaly with diffuse interstitial infiltrates scattered throughout the lungs. EKG demonstrated sinus tachycardia with a short [place] interval, no ischemic changes and no peaked T waves. Patient was admitted under our services and nephrology and neurology were consulted. Records from [facility] were obtained revealing: Patient had dental caries with some facial cellulitis, for which she received antibiotics. Periorbital edema was also noted, unlikely to be infectious. Optic neuritis was ruled out. Patient was seen to have vitreous hemorrhage on the right, probable cause for her worsening right-sided vision. MRI brain also showed small area of infarct in the right occipital lobe. Cardiology was consulted and HAYDER was completed revealing a preserved EF of 55% and did not show any vegetation, PFO or intracardiac shunt. ESR 33 and CRP 5.7. TSH was elevated at 7.230 but free T4 was normal findings at 1.17. On 12/28/23 hemoglobin de creased to 6.7 resulting in transfusion of 1 unit PRBCs. Patient has been receiving daily dialysis. Overall improving. However patient is extremely weak unable to ambulate without assistance. Physical therapy ordered. Physical exam: Patient seen and examined at bedside. No acute events overnight. Still feeling extremely weak, unable to get out of the bed into the chair. Worried about bein g home by herself without any assistance. Vital signs reviewed and stable. General: Nontoxic, no distress and appears stated age Derm: Skin warm and dry, normal coloration for ethnicity. Head: Atraumatic, normocephalic and symmetric. Eyes: Reduced visual acuity bilaterally, worse on the left, pupils equal and reactive to light Mouth: no lip lesions, mucus membranes moist Cardiovascular: regular rate and rhythm with normal S1S2, no murmur, positive posterior tibial pulses bilaterally, and cap refill < 2 seconds. Lungs: Respirations even, regular, and unlabored on room air. Lungs CTA bi laterally, no rhonchi, no rales, no wheezing, and no accessory muscle usage. Abdominal: soft, nontender to palpation, no guarding, no appreciable organomegaly Ext: ROM intact. No gross muscle atrophy, scant lower extremity edema, no contractures Neuro: Speech clear, face symmetrical and CN II-XII grossly intact with no noted focal neuro deficits Psych: Alert and oriented to person, place, time, and situation. Appropriate and pleasant affect. Assessment and Plan of Care: Acute hypoxic respiratory failure, resolved Acute pulmonary edema, resolved ESRD on hemodialysis Fluid volume overload Hyperkalemia, currently undergoing dialysis Hyponatremia, secondary to dilution from fluid overload Hypertensive urgency, improved Anemia of chronic disease, hemoglobin stable status post 1 unit of PRBC -Nephrology following and discussed plan of care with lead electrical engineer, Dr. Lim, Patient to undergo dialysis again today and again tomorrow and then will be cleared for discharge from nephrology standpoint. -Continue Lasix 80 mg IVP twice daily. -Strict I's and O's -Patient to continue low potassium diet, Lokelma 10 g once daily, darbepoetin 40 mcg q. 7 days, and nifedipine 60 mg twice daily. -Blood pressures better controlled. Continue Coreg 25 mg twice daily, hydralazine 100 mg 3 times daily, and nifedipine 60 mg twice daily Subacute bilateral vision loss Right vitreous hemorrhage Small acute/subacute right occipital infarct -Neurology evaluated, discontinued Plavix as she has been on it for 21 days, continue monotherapy with aspirin 81 mg daily and atorvastatin 40 mg nightly. Neurology recommending placement of 30-day event monitor prior to discharge. -Needs further outpatient follow-up with neurology and ophthalmology -Cardiology following, HAYDER was completed and did not show any vegetations or PFO. Patient may benefit from an event monitor at time of discharge Type 1 diabetes melitis with hyperglycemia -Levemir increased to 40 units daily and patient to continue with NovoLog sliding scale insulin. Monitor for hypoglycemia -Hemoglobin A1c 7.8%. Constipation Patient started on lactulose 30 g twice daily Chronic Conditions: Depression and anxiety GERD Hypothyroidism Dyslipidemia -Patient to continue daily medication regimen with aspirin 81 mg daily, atorvastatin 40 mg nightly, carvedilol 25 mg twice daily, Depakote 500 mg twice daily, levothyroxine 176 mcg daily, Procardia 60 mg twice daily, Protonix 40 mg daily, and sertraline 200 mg daily. Data and imaging reviewed: -Blood glucose range between 94-415 DVT ppx: NAHED mccollum and SCDs Code status: Full code Anticipated discharge date: Pending clinical course Anticipated discharge place: PT evaluation pending Objective - Vital Signs Vital signs: Vital Signs Temp 98.2 F 01/08/24 13:33 Pulse 101 H 01/08/24 13:33 Resp 16 01/08/24 13:33 BP 151/94 01/08/24 13:33 Pulse Ox 95 01/08/24 11:20 FiO2 30 01/05/24 08:00 Intake & Output 01/07/24 01/08/24 01/08/24 18:59 06:59 18:59 Intake Total 1447 240 880 Output Total 4400 4800 Balance -2953 240 -3920 Weight 69.6 kg Intake: Oral 1047 240 480 Hemodialysis 400 400 Output: Hemodialysis 4400 4800 Other: Voiding Method Toilet Toilet Toilet - Labs CBC & Chem 7: 01/07/24 07:06 01/07/24 07:06 Labs: Abnormal Lab Results - Last 24 Hours (Table) 01/07/24 01/07/24 01/08/24 Range/Units 16:21 20:15 11:17 POC Glucose (mg/dL) 415 H 274 H 321 H (70-110) mg/dL
[2024-01-08 16:28] LABS: Glucose,Whole Blood 387 mg/dL (70-110)
[2024-01-08 20:00] LABS: Glucose,Whole Blood 330 mg/dL (70-110)
[2024-01-09 06:04] LABS: Glucose,Whole Blood 161 mg/dL (70-110)
--- NOTE | 2024-01-09 10:52 | P.PN ---
Subjective Patient is seen for follow-up for end-stage renal disease. Status post UF of 4.8 L yesterday. Shortness of breath has improved. No chest pains. Leg swelling has completely resolved Patient states she is weak and is considering considering short-term rehab stay. Patient states she feels very unsteady on walking. Objective - Vital Signs Vital signs: Vital Signs Temp 98.2 F 01/09/24 04:00 Pulse 77 01/09/24 04:00 Resp 18 01/09/24 04:00 BP 161/90 01/09/24 04:00 Pulse Ox 95 01/09/24 04:00 FiO2 30 01/05/24 08:00 Intake & Output 01/08/24 01/09/24 01/09/24 18:59 06:59 18:59 Intake Total 1840 720 Output Total 4800 Balance -2960 720 Weight 67.7 kg Intake: Oral 1440 720 Hemodialysis 400 Output: Hemodialysis 4800 Other: Voiding Method Toilet Toilet # Voids 1 # Bowel Movements 1 - Exam Patient is awake, comfortable, no acute distress Examination of the heart S1 and S2 Examination of the lungs bilateral breath sounds are heard Abdomen is soft nontender Examination of lower extremities shows trace edema EVAPORATOR REPAIRER exam shows patient is able to move all 4 extremities. Decreased vision. - Labs CBC & Chem 7: 01/07/24 07:06 01/07/24 07:06 Labs: Abnormal Lab Results - Last 24 Hours (Table) 01/08/24 01/08/24 01/08/24 Range/Units 11:17 16:27 19:59 POC Glucose (mg/dL) 321 H 387 H 330 H (70-110) mg/dL 01/09/24 Range/Units 06:02 POC Glucose (mg/dL) 161 H (70-110) mg/dL Assessment and Plan Assessment: 1. End-stage renal disease maintained on hemodialysis on Wednesday schedule via right chest permacath. Has a PD catheter but still needs to be trained. Patient will be maintained on peritoneal dialysis if there is improvement in the left eye vision post cataract surgery otherwise the pd catheter will need to be removed. 2. Acute hypoxic respiratory failure. Improved 3. Volume overload. Improved with ultrafiltration. 4. Type 1 diabetes mellitus. 5. Impaired vision due to CVA versus optic neuritis. Neurology following. 6. Hypertension with chronic kidney disease. 7. Hyperkalemia secondary to chronic kidney disease. Improved postdialysis. 8. Anemia of chronic kidney disease. Status post blood transfusion this admission. On Aranesp. Plan: Hemodialysis on 01/11/2024. I am hopeful patient will not need dialysis treatment tomorrow. We have reached her dry weight. Discussed potassium restriction in diet with patient and mom along with i ncreased protein intake and restriction of fluids as well as sodium.
[2024-01-09 11:33] LABS: Glucose,Whole Blood 486 mg/dL (70-110)
[2024-01-09] MEDS: INSULIN DETEMIR (LEVEMIR) 100 UNIT/ML SYR SQ SCH (12:07)
--- NOTE | 2024-01-09 13:03 | P.PN ---
Subjective Progress Note Date: 01/09/24 Hospital course: Patient is a 33-year-old female with a past medical history of ESRD on hemodialysis, type 1 diabetes, hypertension, and dyslipidemia. She presented to the emergency department on 12/27/2023 with acute on chronic shortness of breath. She first discovered about renal disease when she became , and subsequently was preeclamptic at the later stages of . She was started on hemodialysis 1 month prior to delivery. She remained on hemodialysis ever since and is currently planning on getting pancreatic and renal transplant at [facility]. However, 3 weeks ago, she developed sudden onset bilateral vision loss. She initially presented to [facility], and was transferred to [facility]. She claims that workup at that hospital showed possible infection of the eye and was started on IV antibiotics and later discharged on oral antibiotics. She was only home for 1 day before she then started developing worsening shortness of breath and presented to our facility. In the emergency room patient underwent full evaluation. Vital signs upon arr ival show patient to be in hypertensive urgency with blood pressure 210/140 and BiPAP dependent with a heart rate in the 130's. She was started on a nitroglycerin drip which improved her blood pressure and heart rate. Labs were completed and reviewed. CBC demonstrated leukocytosis with WBC count of 30.9 and normocytic anemia with hemoglobin of 8.2 BMP revealed hyperkalemia with potassium of 6.3 and renal function consistent with ESRD with BUN of 71, creatinine of 6.93, and GFR of 7. Liver profile revealing elevated AST of 44, total protein of 5.7 and albumin of 3.1. Procalcitonin 0.23. VBG showed pH of 7.48 and pCO2 of 33. Coags were unremarkable. Influenza A, influenza B, RSV, and COVID were negative. Chest x-ray demonstrated cardiomegaly with diffuse interstitial infiltrates scattered throughout the lungs. EKG demonstrated sinus tachycardia with a short [place] interval, no ischemic changes and no peaked T waves. Patient was admitted under our services and nephrology and neurology were consulted. Records from [facility] were obtained revealing: Patient had dental caries with some facial cellulitis, for which she received antibiotics. Periorbital edema was also noted, unlikely to be infectious. Optic neuritis was ruled out. Patient was seen to have vitreous hemorrhage on the right, probable cause for her worsening right-sided vision. MRI brain also showed small area of infarct in the right occipital lobe. Cardiology was consulted and HAYDER was completed revealing a preserved EF of 55% and did not show any vegetation, PFO or intracardiac shunt. ESR 33 and CRP 5.7. TSH was elevated at 7.230 but free T4 was normal findings at 1.17. On 12/28/23 hemoglobin de creased to 6.7 resulting in transfusion of 1 unit PRBCs. Patient has been receiving daily dialysis. Overall improving. However patient is extremely weak unable to ambulate without assistance. Physical therapy ordered. Physical exam: Patient seen and examined at bedside. No acute events overnight. Still feeling extremely weak, unable to get out of the bed into the chair without assistance. Worried about being home by herself without any assistance. Vital signs reviewed and stable. General: Nontoxic, no distress and appears stated age Derm: Skin warm and dry, normal coloration for ethnicity. Head: Atraumatic, normocephalic and symmetric. Eyes: Reduced visual acuity bilaterally, worse on the left, pupils equal and reactive to light Mouth: no lip lesions, mucus membranes moist Cardiovascular: regular rate and rhythm with normal S1S2, no murmur, positive posterior tibial pulses bilaterally, and cap refill < 2 seconds. Lungs: Respirations even, regular, and unlabored on room air. Lungs CTA bilaterally, no rhonchi, no rales, no wheezing, and no accessory muscle usage. Abdominal: soft, nontender to palpation, no guarding, no appreciable organomegaly Ext: ROM intact. No gross muscle atrophy, scant lower extremity edema, no contractures Neuro: Speech clear, face symmetrical and CN II-XII grossly intact with no noted focal neuro deficits Psych: Alert and oriented to person, place, time, and situation. Appropriate and pleasant affect. Assessment and Plan of Care: Acute hypoxic respiratory failure, resolved Acute pulmonary edema, resolved ESRD on hemodialysis Fluid volume overload Hyperkalemia, currently undergoing dialysis Hyponatremia, secondary to dilution from fluid overload Hypertensive urgency, improved Anemia of chronic disease, hemoglobin stable status post 1 unit of PRBC -Nephrology note reviewed, continue current therapy, no dialysis today -Continue Lasix 80 mg IVP twice daily. -Strict I's and O's -Patient to continue low potassium diet, Lokelma 10 g once daily, darbepoetin 40 mcg q. 7 days, and nifedipine 60 mg twice daily. -Blood pressures better controlled. Continue Coreg 25 mg twice daily, hydralazine 100 mg 3 times daily, and nifedipine 60 mg twice daily Subacute bilateral vision loss Right vitreous hemorrhage Small acute/subacute right occipital infarct -Neurology evaluated, discontinued Plavix as she has been on it for 21 days, co ntinue monotherapy with aspirin 81 mg daily and atorvastatin 40 mg nightly. Neurology recommending placement of 30-day event monitor prior to discharge. -Needs further outpatient follow-up with neurology and ophthalmology -Cardiology following, HAYDER was completed and did not show any vegetations or PFO. Patient may benefit from an event monitor at time of discharge Type 1 diabetes melitis with hyperglycemia -Levemir increased to 40 units daily and patient to continue with NovoLog sliding scale insulin. Monitor for hypoglycemia -Hemoglobin A1c 7.8%. Constipation Patient started on lactulose 30 g twice daily Chronic Conditions: Depression and anxiety GERD Hypothyroidism Dyslipidemia -Patient to continue daily medication regimen with aspirin 81 mg daily, atorvastatin 40 mg nightly, carvedilol 25 mg twice daily, Depakote 500 mg twice daily, levothyroxine 176 mcg daily, Procardia 60 mg twice daily, Protonix 40 mg daily, and sertraline 200 mg daily. Data and imaging reviewed: -Blood glucose range between 1 61-387 DVT ppx: NAHED [place] and SCDs Code status: Full code Anticipated discharge date: Pending clinical course Anticipated discharge place: PT evaluation pending Objective - Vital Signs Vital signs: Vital Signs Temp 98.6 F 01/09/24 08:00 Pulse 96 01/09/24 08:00 Resp 18 01/09/24 08:00 BP 176/103 01/09/24 08:00 Pulse Ox 98 01/09/24 08:00 FiO2 30 01/05/24 08:00 Intake & Output 01/08/24 01/09/24 01/09/24 18:59 06:59 18:59 Intake Total 1840 720 Output Total 4800 Balance -2960 720 Weight 67.7 kg Intake: Oral 1440 720 Hemodialysis 400 Output: Hemodialysis 4800 Other: Voiding Method Toilet Toilet Toilet # Voids 1 # Bowel Movements 1 - Labs CBC & Chem 7: 01/07/24 07:06 01/07/24 07:06 Labs: Abnormal Lab Results - Last 24 Hours (Table) 01/08/24 01/08/24 01/09/24 Range/Units 16:27 19:59 06:02 POC Glucose (mg/dL) 387 H 330 H 161 H (70-110) mg/dL 01/09/24 Range/Units 11:32 POC Glucose (mg/dL) 486 H (70-110) mg/dL
[2024-01-09 16:29] LABS: Glucose,Whole Blood 352 mg/dL (70-110)
[2024-01-09 20:15] LABS: Glucose,Whole Blood 201 mg/dL (70-110)
[2024-01-10 06:07] LABS: Glucose,Whole Blood 84 mg/dL (70-110)
[2024-01-10 07:48] LABS: Anisocytosis Slight; HCT 26.2 % (34.0-46.0); HGB 8.9 gm/dL (11.4-16.0); MCH 31.5 pg (25.0-35.0); MCV 92.8 fL (80.0-100.0); Mean Platelet Volume 7.8; Platelet Count 482 k/uL (150-450); RBC 2.82 m/uL (3.80-5.40); RDW 16.6 % (11.5-15.5); WBC 9.8 k/uL (3.8-10.6)
[2024-01-10 08:06] LABS: ALT 24 U/L (4-34); AST 24 U/L (14-36); African American GFR (CKD) 13 (>60 ml/min/1.73 sqM); Albumin 3.5 g/dL (3.5-5.0); Alkaline Phosphatase 92 U/L (38-126); Anion Gap 12 mmol/L; Blood Urea Nitrogen 43 mg/dL (7-17); Calcium 9.2 mg/dL (8.4-10.2); Carbon Dioxide 20 mmol/L (22-30); Chloride 98 mmol/L (98-107); Glucose 126 mg/dL (74-99); Magnesium 1.8 mg/dL (1.6-2.3); Non-African American GFR(CKD) 11 (>60 ml/min/1.73 sqM); Potassium 5.1 mmol/L (3.5-5.1); Sodium 130 mmol/L (137-145); Total Bilirubin 0.7 mg/dL (0.2-1.3); Total Protein 5.9 g/dL (6.3-8.2)
[2024-01-10 09:49] LABS: Glucose,Whole Blood 360 mg/dL (70-110)
--- NOTE | 2024-01-10 10:09 | P.PN ---
Subjective Patient is seen in follow-up for end-stage renal disease. She is maintained on hemodialysis on Wednesday schedule. No active complaints. Denies chest pain or shortness of breath. Vital signs are stable. General: No acute distress. HEENT: Head exam is unremarkable. On room air. LUNGS: No audible rhonchi or wheezes. HEART: Rate and Rhythm are regular. ABDOMEN: Nontender. EXTREMITITES: No edema. Objective - Vital Signs Vital signs: Vital Signs Temp 97.0 F L 01/10/24 04:00 Pulse 85 01/10/24 08:21 Resp 16 01/10/24 08:21 BP 143/73 01/10/24 08:21 Pulse Ox 98 01/10/24 08:21 FiO2 30 01/05/24 08:00 Intake & Output 01/09/24 01/10/24 01/10/24 18:59 06:59 18:59 Intake Total 1200 10 Output Total 750 Balance 1200 -740 Weight 70.2 kg Intake: IV 10 0.9 10 Oral 1200 Output: Urine 750 Other: Voiding Method Toilet Toilet # Voids 0 # Bowel Movements 1 - Labs CBC & Chem 7: 01/10/24 07:31 01/10/24 07:31 Labs: Abnormal Lab Results - Last 24 Hours (Table) 01/09/24 01/09/24 01/09/24 Range/Units 11:32 16:28 20:06 RBC (3.80-5.40) m/uL Hgb (11.4-16.0) gm/dL Hct (34.0-46.0) % RDW (11.5-15.5) % Plt Count (150-450) k/uL Sodium (137-145) mmol/L Carbon Dioxide (22-30) mmol/L BUN (7-17) mg/dL Creatinine (0.52-1.04) mg/dL Glucose (74-99) mg/dL POC Glucose (mg/dL) 486 H 352 H 201 H (70-110) mg/dL Total Protein (6.3-8.2) g/dL 01/10/24 01/10/24 01/10/24 Range/Units 07:31 07:31 09:47 RBC 2.82 L (3.80-5.40) m/uL Hgb 8.9 L (11.4-16.0) gm/dL Hct 26.2 L (34.0-46.0) % RDW 16.6 H (11.5-15.5) % Plt Count 482 H (150-450) k/uL Sodium 130 L (137-145) mmol/L Carbon Dioxide 20 L (22-30) mmol/L BUN 43 H (7-17) mg/dL Creatinine 4.85 H (0.52-1.04) mg/dL Glucose 126 H (74-99) mg/dL POC Glucose (mg/dL) 360 H (70-110) mg/dL Total Protein 5.9 L (6.3-8.2) g/dL Assessment and Plan Plan: Assessment: 1. End-stage renal disease maintained on hemodialysis on Wednesday schedule via right chest permacath. Has a PD catheter but still needs to be trained. Patient requesting removal of PD catheter as she does not want to do PD anymore. 2. Acute hypoxic respiratory failure. Improved. 3. Volume overload. Improved with ultrafiltration. 4. Type 1 diabetes mellitus. 5. Impaired vision due to CVA versus optic neuritis. Neurology following. 6. Hypertension with chronic kidney disease. 7. Hyperkalemia secondary to chronic kidney disease. Improved postdialysis. 8. Anemia of chronic kidney disease. Status post blood transfusion this admission. On . Plan: Hemodialysis tomorrow. Phosphorus level 4.1 dated December 28, 2023. No vegetation noted on HAYDER. Preserved ejection fraction. Low potassium diet Hold hydralazine for systolic blood pressure less than 120. Change IV Lasix to oral torsemide. Consult Dr. Lambert for PD catheter removal per patient's request.
[2024-01-10] MEDS: TORSEMIDE 20 MG TAB PO SCH (10:42)
[2024-01-10] MEDS: INSULIN ASPART (NovoLOG) 100 UNIT/ML VIAL SQ SCH (10:43)
--- NOTE | 2024-01-10 10:47 | P.PN ---
Subjective Progress Note Date: 01/10/24 Hospital course: Patient is a 33-year-old female with a past medical history of ESRD on hemodialysis, type 1 diabetes, hypertension, and dyslipidemia. She presented to the emergency department on 12/27/2023 with acute on chronic shortness of breath. She first discovered about renal disease when she became , and subsequently was preeclamptic at the later stages of . She was started on hemodialysis 1 month prior to delivery. She remained on hemodialysis ever since and is currently planning on getting pancreatic and renal transplant at [facility]. However, 3 weeks ago, she developed sudden onset bilateral vision loss. She initially presented to [facility], and was transferred to [facility]. She claims that workup at that hospital showed possible infection of the eye and was started on IV antibiotics and later discharged on oral antibiotics. She was only home for 1 day before she then started developing worsening shortness of breath and presented to our facility. In the emergency room patient underwent full evaluation. Vital signs upon arrival show patient to be in hypertensive urgency with blood pressure 210/140 and BiPAP dependent with a heart rate in the 130's. She was started on a nitroglycerin drip which improved her blood pressure and heart rate. Labs were completed and reviewed. CBC demonstrated leukocytosis with WBC count of 30.9 and normocytic anemia with hemoglobin of 8.2 BMP revealed hyperkalemia with potassium of 6.3 and renal function consistent with ESRD with BUN of 71, cr eatinine of 6.93, and GFR of 7. Liver profile revealing elevated AST of 44, total protein of 5.7 and albumin of 3.1. Procalcitonin 0.23. VBG showed pH of 7.48 and pCO2 of 33. Coags were unremarkable. Influenza A, influenza B, RSV, and COVID were negative. Chest x-ray demonstrated cardiomegaly with diffuse interstitial infiltrates scattered throughout the lungs. EKG demonstrated sinus tachycardia with a short [place] interval, no ischemic changes and no peaked T waves. Patient was admitted under our services and nephrology and neurology were consulted. Records from [facility] were obtained revealing: Patient had dental caries with some facial cellulitis, for which she received anti biotics. Periorbital edema was also noted, unlikely to be infectious. Optic neuritis was ruled out. Patient was seen to have vitreous hemorrhage on the right, probable cause for her worsening right-sided vision. MRI brain also showed small area of infarct in the right occipital lobe. Cardiology was consulted and HAYDER was completed revealing a preserved EF of 55% and did not show any vegetation, PFO or intracardiac shunt. ESR 33 and CRP 5.7. TSH was elevated at 7.230 but free T4 was normal findings at 1.17. On 12/28/23 hemoglobin decreased to 6.7 resulting in transfusion of 1 unit PRBCs. Patient has been receiving daily dialysis. Overall improving. However patient is extremely weak unable to ambulate without assistance. Physical therapy ordered and recommending placement in long term facility. Physical exam: Patient seen and examined at bedside. No acute events overnight. Patient reports she still feels extremely weak and unable to ambulate without assistance. She was evaluated by physical therapy recommending placement in long term facility for rehab. Discussed with community case manager, patient to be discharged to [facility] once insurance authorization has been obtained. Vital signs reviewed and stable. General: Nontoxic, no distress and appears stated age Derm: Skin warm and dry, normal coloration for ethnicity. Head: Atraumatic, normocephalic and symmetric. Eyes: Reduced visual acuity bilaterally, worse on the left, pupils equal and reactive to light Mouth: no lip lesions, mucus membranes moist Cardiovascular: regular rate and rhythm with normal S1S2, no murmur, positive posterior tibial pulses bilaterally, and cap refill < 2 seconds. Lungs: Respirations even, regular, and unlabored on room air. Lungs CTA bilaterally, no rhonchi, no rales, no wheezing, and no accessory muscle usage. Abdominal: soft, nontender to palpation, no guarding, no appreciable organomegaly Ext: ROM intact. No gross muscle atrophy, scant lower extremity edema, no contractures Neuro: Speech clear, face symmetrical and CN II-XII grossly intact with no noted focal neuro deficits Psych: Alert and oriented to person, place, time, and situation. Appropriate and pleasant affect. Assessment and Plan of Care: Acute hypoxic respiratory failure, resolved Acute pulmonary edema, resolved ESRD on hemodialysis Fluid volume overload Hyperkalemia, resolved. Continue dialysis Wednesday//Wednesday Hyponatremia, secondary to dilution from fluid overload Hypertensive urgency, improved Anemia of chronic disease, hemoglobin stable status post 1 unit of PRBC -Nephrology note reviewed, continue current therapy, no dialysis today. Discontinued IV Lasix and starting patient on torsemide 40 mg daily. -Continue to monitor I's and O's -Patient to continue low potassium diet, darbepoetin 40 mcg q. 7 days, and nifedipine 60 mg twice daily. -Blood pressures better controlled. Continue Coreg 25 mg twice daily, hydralazine 100 mg 3 times daily, and nifedipine 60 mg twice daily Subacute bilateral vision loss Right vitreous hemorrhage Small acute/subacute right occipital infarct -Neurology evaluated, discontinued Plavix as she has been on it for 21 days, continue monotherapy with aspirin 81 mg daily and atorvastatin 40 mg nightly. Neurology recommending placement of 30-day event monitor prior to discharge. -Needs further outpatient follow-up with neurology and ophthalmology -Cardiology following, HAYDER was completed and did not show any vegetations or PFO. Patient may benefit from an event monitor at time of discharge Type 1 diabetes melitis with hyperglycemia -Levemir increased to 40 units daily and patient placed on fixed dose insulin 5 units 3 times daily with meals and to continue with glycemic protocol with NovoLog sliding scale 4 times daily. Monitor for hypoglycemia -Hemoglobin A1c 7.8%. Constipation, resolved -Patient started on lactulose 30 g twice daily Chronic Conditions: Depression and anxiety GERD Hypothyroidism Dyslipidemia -Patient to continue daily medication regimen with aspirin 81 mg daily, atorvastatin 40 mg nightly, carvedilol 25 mg twice daily, Depakote 500 mg twice daily, levothyroxine 176 mcg daily, Procardia 60 mg twice daily, Protonix 40 mg daily, and sertraline 200 mg daily. Data and imaging reviewed: -Urine output 750 cc over the past 24 hours. -Blood glucose range between 84-486. -Morning labs reviewed. CBC showing stable normocytic anemia with hemoglobin of 8.9 and thrombocytosis with platelet count of 482. BMP showing mild hyponatre farooq with sodium of 130 and renal function consistent with ESRD with BUN of 43, creatinine 4.85, GFR of 11. Magnesium 1.8. DVT ppx: NAHED [place] and SCDs Code status: Full code Anticipated discharge date: Awaiting insurance authorization Anticipated discharge place: [facility] once insurance authorization is obtained. Patient was seen independently by Nurse Pracitioner. This document was prepared using [employer] dictation software. Please allow for errors in as400 operator, while rare they do occur. Harrison Erazo NP rendered care for this patient independently, reviewed the findings and plan as documented in the note above. I did not physically speak with or examine the patient on this date. Objective - Vital Signs Vital signs: Vital Signs Temp 97.0 F L 01/10/24 04:00 Pulse 81 01/10/24 04:00 Resp 18 01/10/24 04:00 BP 151/80 01/10/24 04:00 Pulse Ox 96 01/10/24 04:00 FiO2 30 01/05/24 08:00 Intake & Output 01/09/24 01/10/24 01/10/24 18:59 06:59 18:59 Intake Total 1200 10 Output Total 750 Balance 1200 -740 Weight 70.2 kg Intake: IV 10 0.9 10 Oral 1200 Output: Urine 750 Other: Voiding Method Toilet Toilet # Voids 0 # Bowel Movements 1 - Labs CBC & Chem 7: 01/10/24 07:31 01/10/24 07:31 Labs: Abnormal Lab Results - Last 24 Hours (Table) 01/09/24 01/09/24 01/09/24 Range/Units 11:32 16:28 20:06 POC Glucose (mg/dL) 486 H 352 H 201 H (70-110) mg/dL
[2024-01-10 11:35] LABS: Glucose,Whole Blood 449 mg/dL (70-110)
[2024-01-10] MEDS ORDERED: ONDANSETRON 4 MG/2 ML VIAL IVP ONE (13:36)
[2024-01-10] MEDS: LACTATED RINGERS 1,000 ML IV SCH (13:40)
[2024-01-10 16:45] LABS: Glucose,Whole Blood 165 mg/dL (70-110)
--- NOTE | 2024-01-10 18:18 | P.GSCN ---
History of Present Illness Consult date: 01/10/24 Reason for Consult: Renal failure History of present illness: 33-year-old female known to our service. Patient had dialysis catheter placement performed few months ago. 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 We are being consulted for catheter removal since she is now switching over to hemodialysis permanently. She is not able to perform the appropriate function at home because of the acute stroke. She never had any issues with the catheter. She states it was only flushed a few times. No pain. No infections. Review of Systems The patient denies any acute changes in hearing, no dysphagia or odynophagia, no chest pain or shortness of breath, no dysuria or hematuria, no headache, no runny nose, no rectal bleeding or melena, no unexplained weight loss Past Medical History Past Medical History: Diabetes Mellitus, GERD/Reflux, Hypertension, Renal Disease, Seizure Disorder, Thyroid Disorder Additional Past Medical History / Comment(s): Neuropathy, last seizure 2020, gastroparesis, headaches with dialysis, states "fast heart rate" since giving ., receives Hemodialysis Wednesday- and Saturdays at [facility] right chest hemodialysis catheter., severe HTN. patient awaiting Kidney and Pancrease Transplant. , states sometimes she has had stroke -like symptoms but no stroke., hx of c-diff 2013. History of Any Multi-Drug Resistant Organisms: None Reported Year Discovered:: 2013 MDRO Source:: stool Past Surgical History: Adenoidectomy, Section, Cholecystectomy, Orthopedic Surgery, Tonsillectomy Additional Past Surgical History / Comment(s): 2 KNEE SCOPES, EAR TUBES, a dditional left knee surgery related to fracture, new port a cath jul 29, eye surgeries for diabetic retinopathy. Past Anesthesia/Blood Transfusion Reactions: Previous Problems w/ Anesthesia Additional Past Anesthesia/Blood Transfusion Reaction / Comm: confusion Past Psychological History: Anxiety, Depression Smoking Status: Former smoker Past Alcohol Use History: None Reported Past Drug Use History: Marijuana, Methamphetamine - Past Family History Father Family Medical History: Unable to Obtain Mother Family Medical History: No Reported History Grandfather Additional Family Medical History / Comment(s): Diabetes mellitus type 2 Medications and Allergies Home Medications Medication Instructions Recorded Confirmed Type Aspirin 81 mg PO DAILY #30 tab 08/02/23 12/27/23 Rx Insulin Glargine,Hum.rec.anlog 25 units SQ DAILY@1330 10/22/23 12/27/23 History [Lantus Solostar Pen] Levothyroxine Sodium [Synthroid] 175 mcg PO DAILY 10/22/23 12/27/23 History Sertraline [Zoloft] 200 mg PO DAILY 10/22/23 12/27/23 History HYDROcodone/APAP 5-325MG [[place] 1 tab PO Q6HR PRN 3 Days #12 tab 10/25/23 12/27/23 Rx 5-325] Atorvastatin [Lipitor] 40 mg PO HS 12/27/23 12/27/23 History Clopidogrel [Plavix] 75 mg PO DAILY 12/27/23 12/27/23 History Divalproex ER [Depakote ER] 500 mg PO BID 12/27/23 12/27/23 History INSULIN LISPRO (humaLOG) [humaLOG] See Protocol SQ AC-TID PRN 12/27/23 12/27/23 History Lidocaine 5% Patch [Lidoderm] 1 patch TOPICAL BID 12/27/23 12/27/23 History NIFEdipine [Adalat CC] 60 mg PO DAILY 12/27/23 12/27/23 History Ondansetron [Zofran] 4 mg PO Q8HR PRN 12/27/23 12/27/23 History Pantoprazole [Protonix] 40 mg PO DAILY 12/27/23 12/27/23 History Augustine Caps 1 cap PO HS 12/27/23 12/27/23 History Sulfamethox-Tmp 800-160Mg [Bactrim 1 tab PO DAILY 12/27/23 12/27/23 History DS 800-160 mg] carvediloL [Coreg] 25 mg PO BID 12/27/23 12/27/23 History hydrALAZINE HCL [Apresoline] 100 mg PO TID 12/27/23 12/27/23 History methocarbamoL [Robaxin-750] 750 mg PO QID 12/27/23 12/27/23 History Allergies Allergy/AdvReac Type Severity Reaction Status Date / Time hydromorphone HCl Allergy Anaphylaxis Verified 12/27/23 08:39 [From Dilaudid] ibuprofen [From Motrin] Allergy unable to Verified 12/27/23 08:39 take due to kidney disease propoxyphene Allergy Rash/Hives Verified 12/27/23 08:39 [From Darvocet-N] tramadol Allergy Anaphylaxis Verified 12/27/23 08:39 venom-honey bee Allergy passes out Verified 12/27/23 08:39 [bee venom (honey bee)] Surgical - Exam Vital Signs Temp Pulse Resp BP Pulse Ox 97.6 F 131 H 18 209/139 100 12/27/23 03:08 12/27/23 03:08 12/27/23 03:08 12/27/23 03:08 12/27/23 03:08 Physical exam: General: Well-developed, well-nourished HEENT: Normocephalic, sclerae nonicteric Abdomen: Nontender, nondistended, left-sided catheter in place Extremities: No edema Neuro: Alert and oriented Results - Labs 01/10/24 07:31 01/10/24 07:31 Abnormal Lab Results - Last 24 Hours (Table) 01/09/24 01/10/24 01/10/24 Range/Units 20:06 07:31 07:31 RBC 2.82 L (3.80-5.40) m/uL Hgb 8.9 L (11.4-16.0) gm/dL Hct 26.2 L (34.0-46.0) % RDW 16.6 H (11.5-15.5) % Plt Count 482 H (150-450) k/uL Sodium 130 L (137-145) mmol/L Carbon Dioxide 20 L (22-30) mmol/L BUN 43 H (7-17) mg/dL Creatinine 4.85 H (0.52-1.04) mg/dL Glucose 126 H (74-99) mg/dL POC Glucose (mg/dL) 201 H (70-110) mg/dL Total Protein 5.9 L (6.3-8.2) g/dL 01/10/24 01/10/24 01/10/24 Range/Units 09:47 11:33 16:43 RBC (3.80-5.40) m/uL Hgb (11.4-16.0) gm/dL Hct (34.0-46.0) % RDW (11.5-15.5) % Plt Count (150-450) k/uL Sodium (137-145) mmol/L Carbon Dioxide (22-30) mmol/L BUN (7-17) mg/dL Creatinine (0.52-1.04) mg/dL Glucose (74-99) mg/dL POC Glucose (mg/dL) 360 H 449 H 165 H (70-110) mg/dL Total Protein (6.3-8.2) g/dL Diabetes panel 01/10/24 Range/Units 07:31 Sodium 130 L (137-145) mmol/L Potassium 5.1 (3.5-5.1) mmol/L Chloride 98 (98-107) mmol/L Carbon Dioxide 20 L (22-30) mmol/L BUN 43 H (7-17) mg/dL Creatinine 4.85 H (0.52-1.04) mg/dL Glucose 126 H (74-99) mg/dL Calcium 9.2 (8.4-10.2) mg/dL AST 24 (14-36) U/L ALT 24 (4-34) U/L Alkaline Phosphatase 92 (38-126) U/L Total Protein 5.9 L (6.3-8.2) g/dL Albumin 3.5 (3.5-5.0) g/dL Calcium panel 01/10/24 Range/Units 07:31 Calcium 9.2 (8.4-10.2) mg/dL Albumin 3.5 (3.5-5.0) g/dL Pituitary panel 01/10/24 Range/Units 07:31 Sodium 130 L (137-145) mmol/L Potassium 5.1 (3.5-5.1) mmol/L Chloride 98 (98-107) mmol/L Carbon Dioxide 20 L (22-30) mmol/L BUN 43 H (7-17) mg/dL Creatinine 4.85 H (0.52-1.04) mg/dL Glucose 126 H (74-99) mg/dL Calcium 9.2 (8.4-10.2) mg/dL Adrenal panel 01/10/24 Range/Units 07:31 Sodium 130 L (137-145) mmol/L Potassium 5.1 (3.5-5.1) mmol/L Chloride 98 (98-107) mmol/L Carbon Dioxide 20 L (22-30) mmol/L BUN 43 H (7-17) mg/dL Creatinine 4.85 H (0.52-1.04) mg/dL Glucose 126 H (74-99) mg/dL Calcium 9.2 (8.4-10.2) mg/dL Total Bilirubin 0.7 (0.2-1.3) mg/dL AST 24 (14-36) U/L ALT 24 (4-34) U/L Alkaline Phosphatase 92 (38-126) U/L Total Protein 5.9 L (6.3-8.2) g/dL Albumin 3.5 (3.5-5.0) g/dL Assessment and Plan (1) Renal failure Narrative/Plan: Will proceed with peritoneal dialysis catheter removal tomorrow. Risks of bleeding, infection, scarring, bowel injury reviewed. She understands wishes to proceed. Current Visit: Yes Status: Acute Code(s): N19 - UNSPECIFIED KIDNEY FAILURE SNOMED Code(s): 72719803
[2024-01-10 20:11] LABS: Glucose,Whole Blood 72 mg/dL (70-110)
[2024-01-11 06:06] LABS: Glucose,Whole Blood 223 mg/dL (70-110)
--- NOTE | 2024-01-11 10:47 | P.PN ---
Subjective Patient is seen in follow-up for end-stage renal disease. She is maintained on hemodialysis on Wednesday schedule. No active complaints. Denies chest pain or shortness of breath. Tolerating dialysis well. No active complaints. Vital signs are stable. General: No acute distress. HEENT: Head exam is unremarkable. On room air. LUNGS: No audible rhonchi or wheezes. HEART: Rate and Rhythm are regular. ABDOMEN: Nontender. EXTREMITITES: No edema. Objective - Vital Signs Vital signs: Vital Signs Temp 96.4 F L 01/10/24 23:36 Pulse 89 01/11/24 08:32 Resp 16 01/11/24 08:32 BP 151/96 01/11/24 08:32 Pulse Ox 96 01/11/24 04:29 FiO2 30 01/05/24 08:00 Intake & Output 01/10/24 01/11/24 01/11/24 18:59 06:59 18:59 Intake Total 960 240 Output Total 800 600 Balance 160 240 -600 Weight 70.2 kg 65 kg Intake: Oral 960 240 Output: Urine 800 600 - Labs CBC & Chem 7: 01/10/24 07:31 01/10/24 07:31 Labs: Abnormal Lab Results - Last 24 Hours (Table) 01/10/24 01/10/24 01/11/24 Range/Units 11:33 16:43 06:05 POC Glucose (mg/dL) 449 H 165 H 223 H (70-110) mg/dL Assessment and Plan Plan: Assessment: 1. End-stage renal disease maintained on hemodialysis on Wednesday schedule via right chest permacath. Has a PD catheter but still needs to be trained. Patient requesting removal of PD catheter as she does not want to do PD anymore. 2. Acute hypoxic respiratory failure. Improved. 3. Volume overload. Improved with ultrafiltration. 4. Type 1 diabetes mellitus. 5. Impaired vision due to CVA versus optic neuritis. Neurology following. 6. Hypertension with chronic kidney disease. 7. Hyperkalemia secondary to chronic kidney disease. Improved postdialysis. 8. Anemia of chronic kidney disease. Status post blood transfusion this admission. On Aranesp. Plan: Currently seen while undergoing hemodialysis. Phosphorus level 4.1 dated December 28, 2023. No vegetation noted on HAYDER. Preserved ejection fraction. Low potassium diet Hold hydralazine for systolic blood pressure less than 120. Maintain torsemide. PD catheter scheduled to be removed this afternoon.
[2024-01-11] MEDS: ONDANSETRON 4 MG/2 ML VIAL IVP ONE ×2 (11:34→14:43)
[2024-01-11] MEDS: SODIUM CHLORIDE 0.9% 1,000 ML IV ONE ×2 (11:34→11:43)
--- NOTE | 2024-01-11 11:38 | P.PN ---
Subjective Progress Note Date: 01/11/24 Hospital course: Patient is a 33-year-old female with a past medical history of ESRD on hemodialysis, type 1 diabetes, hypertension, and dyslipidemia. She presented to the emergency department on 12/27/2023 with acute on chronic shortness of breath. She first discovered about renal disease when she became , and subsequently was preeclamptic at the later stages of . She was started on hemodialysis 1 month prior to delivery. She remained on hemodialysis ever since and is currently planning on getting pancreatic and renal transplant at [facility]. However, 3 weeks ago, she developed sudden onset bilateral vision loss. She initially presented to [facility], and was transferred to [facility]. She claims that workup at that hospital showed possible infection of the eye and was started on IV antibiotics and later discharged on oral antibiotics. She was only home for 1 day before she then started developing worsening shortness of breath and presented to our facility. In the emergency room patient underwent full evaluation. Vital signs upon arrival show patient to be in hypertensive urgency with blood pressure 210/140 and BiPAP dependent with a heart rate in the 130's. She was started on a nitroglycerin drip which improved her blood pressure and heart rate. Labs were completed and reviewed. CBC demonstrated leukocytosis with WBC count of 30.9 and normocytic anemia with hemoglobin of 8.2 BMP revealed hyperkalemia with potassium of 6.3 and renal function consistent with ESRD with BUN of 71, cr eatinine of 6.93, and GFR of 7. Liver profile revealing elevated AST of 44, total protein of 5.7 and albumin of 3.1. Procalcitonin 0.23. VBG showed pH of 7.48 and pCO2 of 33. Coags were unremarkable. Influenza A, influenza B, RSV, and COVID were negative. Chest x-ray demonstrated cardiomegaly with diffuse interstitial infiltrates scattered throughout the lungs. EKG demonstrated sinus tachycardia with a short HI interval, no ischemic changes and no peaked T waves. Patient was admitted under our services and nephrology and neurology were consulted. Records from [facility] were obtained revealing: Patient had dental caries with some facial cellulitis, for which she received anti biotics. Periorbital edema was also noted, unlikely to be infectious. Optic neuritis was ruled out. Patient was seen to have vitreous hemorrhage on the right, probable cause for her worsening right-sided vision. MRI brain also showed small area of infarct in the right occipital lobe. Cardiology was consulted and HAYDER was completed revealing a preserved EF of 55% and did not show any vegetation, PFO or intracardiac shunt. ESR 33 and CRP 5.7. TSH was elevated at 7.230 but free T4 was normal findings at 1.17. On 12/28/23 hemoglobin decreased to 6.7 resulting in transfusion of 1 unit PRBCs. Patient has been receiving daily dialysis. Overall improving. However patient is extremely weak unable to ambulate without assistance. Physical therapy evaluated and recommending placement in [facility]. Plan is for discharge to rehab pending acceptance to rehab facility and insurance authorization. Physical exam: Patient seen and examined at bedside. No acute events overnight. Patient undergoing dialysis at this time and visiting with her family at bedside. Patient denies having any complaints or concerns at this time. She is awaiting insurance authorization for discharge to rehab. Vital signs reviewed and stable. General: Nontoxic, no distress and appears stated age Derm: Skin warm and dry, normal coloration for ethnicity. Head: Atraumatic, normocephalic and symmetric. Eyes: Reduced visual acuity bilaterally, worse on the left, pupils equal and reactive to light Mouth: no lip lesions, mucus membranes moist Cardiovascular: regular rate and rhythm with normal S1S2, no murmur, positive posterior tibial pulses bilaterally, and cap refill < 2 seconds. Lungs: Respirations even, regular, and unlabored on room air. Lungs CTA bilaterally, no rhonchi, no rales, no wheezing, and no accessory muscle usage. Abdominal: soft, nontender to palpation, no guarding, no appreciable organomegaly Ext: ROM intact. No gross muscle atrophy, scant lower extremity edema, no contractures Neuro: Speech clear, face symmetrical and CN II-XII grossly intact with no noted focal neuro deficits Psych: Alert and oriented to person, place, time, and situation. Appropriate and pleasant affect. Assessment and Plan of Care: Acute hypoxic respiratory failure, resolved Acute pulmonary edema, resolved ESRD on hemodialysis Fluid volume overload Hyperkalemia, resolved. Continue dialysis Wednesday//Wednesday Hyponatremia, secondary to dilution from fluid overload Hypertensive urgency, improved Anemia of chronic disease, hemoglobin stable status post 1 unit of PRBC -Nephrology note reviewed, continue current therapy, undergoing dialysis today. Recommending continuation of torsemide 40 mg daily. -Continue to monitor I's and O's -Patient to continue low potassium diet, darbepoetin 40 mcg q. 7 days, and nifedipine 60 mg twice daily. -Blood pressures better controlled. Continue Coreg 25 mg twice daily, hydralazine 100 mg 3 times daily, and nifedipine 60 mg twice daily Subacute bilateral vision loss Right vitreous hemorrhage Small acute/subacute right occipital infarct -Neurology evaluated, discontinued Plavix as she has been on it for 21 days, continue monotherapy with aspirin 81 mg daily and atorvastatin 40 mg nightly. Neurology recommending placement of 30-day event monitor prior to discharge. -Needs further outpatient follow-up with neurology and ophthalmology -Cardiology following, HAYDER was completed and did not show any vegetations or PFO. Patient to have 30-day event monitor placed at time of discharge Type 1 diabetes melitis with hyperglycemia -Levemir increased to 40 units daily and secondary to blood glucose levels ranging between 72 and 449 patient was also placed on fixed dose insulin 5 units 3 times daily with meals and to continue with glycemic protocol with NovoLog sliding scale 4 times daily. Monitor for hypoglycemia -Hemoglobin A1c 7.8%. Constipation, resolved -Continue lactulose 30 g twice daily Chronic Conditions: Depression and anxiety GERD Hypothyroidism Dyslipidemia -Patient to continue daily medication regimen with aspirin 81 mg daily, atorvastatin 40 mg nightly, carvedilol 25 mg twice daily, Depakote 500 mg twice daily, levothyroxine 176 mcg daily, Procardia 60 mg twice daily, Protonix 40 mg daily, and sertraline 200 mg daily. Data and imaging reviewed: -Urine output 800 cc over the past 24 hours. -Blood glucose range between 72-449 -Vital signs reviewed. Blood pressure 151/96, heart rate 89, respiratory rate 16, temp 97.9 F, and SpO2 of 98% on room air. DVT ppx: NAHED hose and SCDs Code status: Full code Anticipated discharge date: Pending insurance authorization Anticipated discharge place: [facility] once insurance authorization is obtained. Patient was seen independently by Nurse Pracitioner. This document was prepared using [employer] dictation software. Please allow for errors in city carrier, while rare they do occur. Harrison Erazo NP rendered care for this patient independently, reviewed the findings and plan as documented in the note above. I did not physically speak with or examine the patient on this date. Objective - Vital Signs Vital signs: Vital Signs Temp 96.4 F L 01/10/24 23:36 Pulse 86 01/11/24 04:29 Resp 18 01/11/24 04:29 BP 144/74 01/11/24 04:29 Pulse Ox 96 01/11/24 04:29 FiO2 30 01/05/24 08:00 Intake & Output 01/10/24 01/11/24 01/11/24 18:59 06:59 18:59 Intake Total 960 240 Output Total 800 600 Balance 160 240 -600 Weight 70.2 kg 65 kg Intake: Oral 960 240 Output: Urine 800 600 - Labs CBC & Chem 7: 01/10/24 07:31 01/10/24 07:31 Labs: Abnormal Lab Results - Last 24 Hours (Table) 01/10/24 01/10/24 01/10/24 Range/Units 07:31 09:47 11:33 Sodium 130 L (137-145) mmol/L Carbon Dioxide 20 L (22-30) mmol/L BUN 43 H (7-17) mg/dL Creatinine 4.85 H (0.52-1.04) mg/dL Glucose 126 H (74-99) mg/dL POC Glucose (mg/dL) 360 H 449 H (70-110) mg/dL Total Protein 5.9 L (6.3-8.2) g/dL 01/10/24 01/11/24 Range/Units 16:43 06:05 Sodium (137-145) mmol/L Carbon Dioxide (22-30) mmol/L BUN (7-17) mg/dL Creatinine (0.52-1.04) mg/dL Glucose (74-99) mg/dL POC Glucose (mg/dL) 165 H 223 H (70-110) mg/dL Total Protein (6.3-8.2) g/dL
[2024-01-11 11:40] LABS: Glucose,Whole Blood 158 mg/dL (70-110)
[2024-01-11] MEDS ORDERED: LIDOCAINE 1% INJ 10MG/ML (20 ML MDV) ONE (11:40)
[2024-01-11] MEDS ORDERED: MIDAZOLAM 2 MG/2 ML VIAL ONE (11:40)
[2024-01-11] MEDS ORDERED: fentaNYL (PF) 50 MCG/ML 2 ML AMP ONE (11:40)
[2024-01-11] MEDS ORDERED: PROPOFOL 10 MG/ML 20 ML VIAL IV ONE (11:40)
[2024-01-11] MEDS: BUPIVACAINE (PF) 0.25% 30 ML VIAL SQ ONE (12:04)
[2024-01-11 12:42] LABS: Glucose,Whole Blood 188 mg/dL (70-110)
[2024-01-11] MEDS: fentaNYL (PF) 50 MCG/ML 2 ML AMP IV PRN (12:45)
--- NOTE | 2024-01-11 12:54 | P.OP ---
Date of Procedure: 01/11/24 Procedure(s) Performed: PREOPERATIVE DIAGNOSIS: Renal failure POSTOPERATIVE DIAGNOSIS: Same PROCEDURE: PD cath removal SURGEON: Fausto EBL: 2 mL ANESTHESIA: Sedation and local COMPLICATIONS: None OPERATIVE PROCEDURE: Patient was placed in the supine position. The abdomen was prepped and draped in usual sterile fashion. The previous paramedian incision was re-incised after localizing the skin. The subcutaneous tissues were divided using electrocautery. Blunt dissection around the cuff that was present at the fascia and peritoneum took place. The cuff was fully mobilized. The catheter was removed from the perineal cavity. The outer cuff was dissected from the saphenous fascia using electrocautery. The catheter was cut on the other side of that cuff and the catheter was removed. The fascial defect was closed using a single [id number] 0 Vicryl stitch. The subcutaneous tissues were closed using 3-0 Vicryl sutures and the skin using 4-0 Monocryl sutures. Skin glue and sterile dressings were applied. DISPOSITION: Stable to recovery room
[2024-01-11 13:26] LABS: Glucose,Whole Blood 232 mg/dL (70-110)
[2024-01-11 17:01] LABS: Glucose,Whole Blood 233 mg/dL (70-110)
[2024-01-11 20:24] LABS: Glucose,Whole Blood 133 mg/dL (70-110)
[2024-01-12 02:42] LABS: Glucose,Whole Blood 47 mg/dL (70-110)
[2024-01-12 02:58] LABS: Glucose,Whole Blood 51 mg/dL (70-110)
[2024-01-12 03:21] LABS: Glucose,Whole Blood 64 mg/dL (70-110)
[2024-01-12 03:42] LABS: Glucose,Whole Blood 80 mg/dL (70-110)
[2024-01-12 05:14] LABS: Glucose,Whole Blood 81 mg/dL (70-110)
[2024-01-12 06:05] LABS: Glucose,Whole Blood 85 mg/dL (70-110)
[2024-01-12 07:03] LABS: Glucose,Whole Blood 69 mg/dL (70-110)
[2024-01-12 07:27] LABS: Glucose,Whole Blood 77 mg/dL (70-110)
[2024-01-12 08:58] LABS: Glucose,Whole Blood 170 mg/dL (70-110)
--- NOTE | 2024-01-12 09:03 | P.CONS ---
History of Present Illness - Reason for Consult Consult date: 01/11/24 rehab recommendations - Chief Complaint weakness - History of Present Illness Ms Marita Perrin is a 33 y/o right handed female who likes with her daughter and daughter's father in a second floor apartment with two flights of stairs to enter. She states prior to november she was independent with mobility and ADLs, but since has been mostly in the hospital and having difficulty with walking. She has a 2ww from recent hospital stay but has not used it at home yet. She is not working, she does not drive, takes the bus or her mother drives her. She can get assistance from her mother or daughter's father on discharge. was just released the day prior from [facility]. She was placed on Bipap, given IV nitro. CT head wtih no acute intracranial process, recommended MRI. She had a PD catheter placed a few months ago, but was unable to utilize it as there was concern for CVA vs optic neuritis which left her partially blind. She was transferred to [facility] and was recent discharged. She had a HAYDER on 12/31/23 with WF 55%, no evidence of PFO. proBNP 37,200. Albumin 3.1. Troponin negative x 1. Influenza A, influenza B, RSV, COVID-19 not detected. Per [facility] Records, Records from [facility] were obtained revealing: Patient had dental caries with some facial cellulitis, for which she received antibiotics. Periorbital edema was also noted, unlikely to be infectious. Optic neuritis was ruled out. Patient was seen to have vitreous hemorrhage on the right, probable cause for her worsening right-sided vision. MRI brain also showed small area of infarct in the right occipital lobe.On 12/28/23 hemoglobin decreased to 6.7 resulting in transfusion of 1 unit PRBCs. On 01/11/24 she underwent PD catheter removal and switched over to HD. Of note, patient is awaiting kidney and pancreas transplant. PM&R consulted for rehab recommendations. Patient evaluated by therapies, supervision with bathing and UB dressing, bed mobility, and gait 5 ft. 01/11/24: Patient states she is doing ok, feeling a little bit better than a couple days ago but still very weak. She reports complete right eye blindness and decreased vision in the left eye which has not changed since November. She denies CP, SOB. She has some abdominal pain from haver her PD catheter removed. She had a BM today. She was getting daily dialysis for a little bit and has now stopped producing urine. She reports numbness in feet from neuropathy, does get intermittent numbness in her legs. She has pain in her lower legs which she feels occurred after so much fluid was taken off by dialysis. Review of Systems reviewed, negative unless stated in HPI Past Medical History Past Medical History: Diabetes Mellitus, GERD/Reflux, Hypertension, Renal Disease, Seizure Disorder, Thyroid Disorder Additional Past Medical History / Comment(s): Neuropathy, last seizure 2020, gastroparesis, headaches with dialysis, states "fast heart rate" since giving ., receives Hemodialysis Wednesday- and Saturdays at [facility] right chest hemodialysis catheter., severe HTN. patient awaiting Kidney and Pancrease Transplant. , states sometimes she has had stroke -like symptoms but no stroke., hx of c-diff 2013. History of Any Multi-Drug Resistant Organisms: None Reported Year Discovered:: 2013 MDRO Source:: stool Past Surgical History: Adenoidectomy, Section, Cholecystectomy, Orthopedic Surgery, Tonsillectomy Additional Past Surgical History / Comment(s): 2 KNEE SCOPES, EAR TUBES, additional left knee surgery related to fracture, new port a cath jul 29, eye surgeries for diabetic retinopathy. Past Anesthesia/Blood Transfusion Reactions: Previous Problems w/ Anesthesia Additional Past Anesthesia/Blood Transfusion Reaction / Comm: confusion Past Psychological History: Anxiety, Depression Smoking Status: Former smoker Past Alcohol Use History: None Reported Past Drug Use History: Marijuana, Methamphetamine - Past Family History Father Family Medical History: Unable to Obtain Mother Family Medical History: No Reported History Grandfather Additional Family Medical History / Comment(s): Diabetes mellitus type 2 Medications and Allergies Home Medications Medication Instructions Recorded Confirmed Type Aspirin 81 mg PO DAILY #30 tab 08/02/23 12/27/23 Rx Insulin Glargine,Hum.rec.anlog 25 units SQ DAILY@1330 10/22/23 12/27/23 History [Lantus Solostar Pen] Levothyroxine Sodium [Synthroid] 175 mcg PO DAILY 10/22/23 12/27/23 History Sertraline [Zoloft] 200 mg PO DAILY 10/22/23 12/27/23 History HYDROcodone/APAP 5-325MG [Foley 1 tab PO Q6HR PRN 3 Days #12 tab 10/25/23 12/27/23 Rx 5-325] Atorvastatin [Lipitor] 40 mg PO HS 12/27/23 12/27/23 History Clopidogrel [Plavix] 75 mg PO DAILY 12/27/23 12/27/23 History Divalproex ER [Depakote ER] 500 mg PO BID 12/27/23 12/27/23 History INSULIN LISPRO (humaLOG) [humaLOG] See Protocol SQ AC-TID PRN 12/27/23 12/27/23 History Lidocaine 5% Patch [Lidoderm] 1 patch TOPICAL BID 12/27/23 12/27/23 History NIFEdipine [Adalat CC] 60 mg PO DAILY 12/27/23 12/27/23 History Ondansetron [Zofran] 4 mg PO Q8HR PRN 12/27/23 12/27/23 History Pantoprazole [Protonix] 40 mg PO DAILY 12/27/23 12/27/23 History Augustine Caps 1 cap PO HS 12/27/23 12/27/23 History Sulfamethox-Tmp 800-160Mg [Bactrim 1 tab PO DAILY 12/27/23 12/27/23 History DS 800-160 mg] carvediloL [Coreg] 25 mg PO BID 12/27/23 12/27/23 History hydrALAZINE HCL [Apresoline] 100 mg PO TID 12/27/23 12/27/23 History methocarbamoL [Robaxin-750] 750 mg PO QID 12/27/23 12/27/23 History Allergies Allergy/AdvReac Type Severity Reaction Status Date / Time hydromorphone HCl Allergy Anaphylaxis Verified 12/27/23 08:39 [From Dilaudid] ibuprofen [From Motrin] Allergy unable to Verified 12/27/23 08:39 take due to kidney disease propoxyphene Allergy Rash/Hives Verified 12/27/23 08:39 [From Darvocet-N] tramadol Allergy Anaphylaxis Verified 12/27/23 08:39 venom-honey bee Allergy passes out Verified 12/27/23 08:39 [bee venom (honey bee)] Physical Exam Vitals: Vital Signs Temp Pulse Resp BP BP Pulse Ox 01/11/24 14:00 96 16 187/95 01/11/24 13:45 89 16 187/90 98 01/11/24 13:14 85 16 165/87 96 01/11/24 13:00 85 18 160/82 96 01/11/24 12:45 86 17 170/94 96 01/11/24 12:27 97 F L 90 16 156/87 97 01/11/24 11:21 97.9 F 92 18 174/86 98 01/11/24 08:32 89 16 151/96 01/11/24 04:29 86 18 144/74 96 01/10/24 23:36 96.4 F L 89 16 129/71 96 01/10/24 19:57 96.4 F L 85 16 112/59 97 01/10/24 16:07 90 16 129/70 97 Intake and Output 01/11/24 01/11/24 01/11/24 06:59 14:59 22:59 Intake Total 600 Output Total 605 Balance -5 Intake: IV 400 Oral 200 Output: Urine 600 Estimated Blood Loss 5 Other: Weight 65 kg General: WDWN, middle aged female, sitting up in chair, NAD Head: Normocephalic, atraumatic. Eyes: Symmetric, patient reports " black/no vision" in right eye, decreased in left eye Ears: Symmetric. Hearing within normal limits. Mouth: Clear. Neck: Supple. Cardiac: lunchroom monitor on, Calves supple, slightly tender, no LE edema Lungs: Breathing comfortably on RA. Chest symmetric. Abdomen: Soft, slightly tender around post surgical site. Neurological: Alert and oriented x 4. Speech is clear and fluent without paraphasic errors Cranial nerves: CN II-XII grossly intact, decreased vision bilateral eyes, EOMI Sensation: Intact and symmetrical limbs. Musculoskeletal: ROM WFL EXCEPT: LE weakness, weakness vs giveaway MMT UE Sh Abd EE EF FABD WE HG Right 4 4+ 5- 5 Left 4 4+ 5- 5 MMT LE HF KE DF EHL Right 4- 4 4- 4 Left 4- 4 4- 4 Reflexes Biceps Triceps Brachioradialis Patella Achilles Babinski Hoffmans Right 1 1 1 0 0 Left 1 1 1 1 1 Skin: Skin intact where visible to head, neck, and bilateral upper and lower extremities EXCEPT: IV, old PD site Psych: Calm, cooperative Results CBC & Chem 7: 01/10/24 07:31 01/10/24 07:31 Labs: Abnormal Lab Results - Last 24 Hours (Table) 01/10/24 01/11/24 01/11/24 Range/Units 16:43 06:05 11:37 POC Glucose (mg/dL) 165 H 223 H 158 H (70-110) mg/dL 01/11/24 01/11/24 Range/Units 12:40 13:24 POC Glucose (mg/dL) 188 H 232 H (70-110) mg/dL Assessment and Plan Assessment: # Debility secondary to acute hypoxic respiratory failure and prolonged hospitalization -PT/OT # Recent right occipital lobe infarct -ASA and statin # Hypertensive emergency # History of CVA vs vitreous hemorrhage with residual blindness -neurology consulted # Pulmonary Edema # Diabetes Mellitus Type 1 with ESRD on HD -//Wednesday outpatient at [facility] # Acute SOB # Anemia s/p transfusion # Depression/anxiety # History of methamphetamine use # Pain Management -Foley 5/325 mg Q 6 hrs prn, given 2 doses of Fentanyl IV, Morphine IV prn, Robaxin 750 mg QID, Lidocaine patch # Comorbidities: GERD, HTN, Seizure disorder-Depakote, thyroid d/o, neuropathy, gastroparesis, headaches # Your medical dx and mgt Goals: Modified Independent mobility and ADLS both basic and advanced; increased functional mobility/strength; increased balance, safety, endurance. Improvement in medical issues through your care. Barriers: dialysis, pain Discharge recommendation: Discussed rehab options with the patient, she states she is set on going to [facility] and has been accepted, she does not think that [facility] is a good fit for her. Patient seen and examined in collaboration with Dr. Medina Thank you for consulting our services.
--- NOTE | 2024-01-12 10:34 | P.PN ---
Subjective Patient is seen in follow-up for end-stage renal disease. She is maintained on hemodialysis on Wednesday schedule. No active complaints. Denies chest pain or shortness of breath. No problems with dialysis yesterday. Vital signs are stable. General: No acute distress. HEENT: Head exam is unremarkable. On room air. LUNGS: No audible rhonchi or wheezes. HEART: Rate and Rhythm are regular. ABDOMEN: Nontender. EXTREMITITES: No edema. Objective - Vital Signs Vital signs: Vital Signs Temp 98.2 F 01/12/24 08:42 Pulse 91 01/12/24 08:42 Resp 16 01/12/24 08:42 BP 125/75 01/12/24 08:42 Pulse Ox 93 L 01/12/24 08:42 FiO2 30 01/05/24 08:00 Intake & Output 01/11/24 01/12/24 01/12/24 18:59 06:59 18:59 Intake Total 600 640 670 Output Total 605 1800 Balance -5 -1160 670 Weight 70 kg Intake: IV 400 10 Invasive Line 4 10 Oral 200 240 660 Hemodialysis 400 Output: Urine 600 Hemodialysis 1800 Estimated Blood Loss 5 - Labs CBC & Chem 7: 01/10/24 07:31 01/10/24 07:31 Labs: Abnormal Lab Results - Last 24 Hours (Table) 01/11/24 01/11/24 01/11/24 Range/Units 11:37 12:40 13:24 POC Glucose (mg/dL) 158 H 188 H 232 H (70-110) mg/dL 01/11/24 01/11/24 01/12/24 Range/Units 16:49 20:23 02:40 POC Glucose (mg/dL) 233 H 133 H 47 L (70-110) mg/dL 01/12/24 01/12/24 01/12/24 Range/Units 02:56 03:18 07:01 POC Glucose (mg/dL) 51 L 64 L 69 L (70-110) mg/dL 01/12/24 Range/Units 08:57 POC Glucose (mg/dL) 170 H (70-110) mg/dL Assessment and Plan Plan: Assessment: 1. End-stage renal disease maintained on hemodialysis on Wednesday schedule via right chest permacath. PD catheter removed January 11, 2024 as she is not interested in doing PD at this point. 2. Acute hypoxic respiratory failure. Improved. 3. Volume overload. Improved with ultrafiltration. 4. Type 1 diabetes mellitus. 5. 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 Neurology following. On aspirin and statin. 6. Hypertension with chronic kidney disease. 7. Hyperkalemia secondary to chronic kidney disease. Improved postdialysis. 8. Anemia of chronic kidney disease. Status post blood transfusion this admission. On Aranesp. Plan: Hemodialysis tomorrow. Phosphorus level 4.1 dated December 28, 2023. No vegetation noted on HAYDER. Preserved ejection fraction. Low potassium diet Hold hydralazine for systolic blood pressure less than 120. Maintain torsemide. Rehab upon discharge.
[2024-01-12 11:43] LABS: Glucose,Whole Blood 282 mg/dL (70-110)
[2024-01-12] MEDS ORDERED: ACETAMINOPHEN TAB 325 MG TAB PO PRN (12:10)
--- NOTE | 2024-01-12 12:24 | P.PN ---
Subjective Progress Note Date: 01/12/24 CHIEF COMPLAINT: Renal failure HISTORY OF PRESENT ILLNESS: Patient postop day #1 status post peritoneal d ialysis catheter removal. Patient does complain of abdominal pain. Denies any nausea or vomiting. Pain medication controls pain. She is tolerating regular diet. History of CVA and partial blindness afebrile. PHYSICAL EXAM: VITAL SIGNS: Reviewed. GENERAL: Well-developed in no acute distress. ABDOMEN: Soft. Nondistended. Incision site clean dry and intact. tenderness with palpation NEUROLOGIC: Alert and oriented. Cranial nerves II through XII grossly intact. ASSESSMENT: 1. Status post peritoneal dialysis catheter removal 2. Renal failure PLAN: -Patient scheduled for hemodialysis tomorrow -Continue supportive care -Surgical service will sign off. Please call with any questions or concerns. Physician Technical Sme note has been reviewed by physician. Signing provider agrees with the documented findings, assessment, and plan of care. Objective - Vital Signs Vital signs: Vital Signs Temp 98.2 F 01/12/24 11:29 Pulse 90 01/12/24 11:29 Resp 16 01/12/24 11:29 BP 176/95 01/12/24 11:29 Pulse Ox 96 01/12/24 11:29 FiO2 30 01/05/24 08:00 Intake & Output 01/11/24 01/12/24 01/12/24 18:59 06:59 18:59 Intake Total 600 640 670 Output Total 605 1800 500 Balance -5 -1160 170 Weight 70 kg Intake: IV 400 10 Invasive Line 4 10 Oral 200 240 660 Hemodialysis 400 Output: Urine 600 500 Hemodialysis 1800 Estimated Blood Loss 5 Other: Voiding Method Toilet # Bowel Movements 1 - Labs CBC & Chem 7: 01/10/24 07:31 01/10/24 07:31 Labs: Abnormal Lab Results - Last 24 Hours (Table) 01/11/24 01/11/24 01/11/24 Range/Units 12:40 13:24 16:49 POC Glucose (mg/dL) 188 H 232 H 233 H (70-110) mg/dL 01/11/24 01/12/24 01/12/24 Range/Units 20:23 02:40 02:56 POC Glucose (mg/dL) 133 H 47 L 51 L (70-110) mg/dL 01/12/24 01/12/24 01/12/24 Range/Units 03:18 07:01 08:57 POC Glucose (mg/dL) 64 L 69 L 170 H (70-110) mg/dL 01/12/24 Range/Units 11:39 POC Glucose (mg/dL) 282 H (70-110) mg/dL
[2024-01-12] MEDS: HYDROcodone/APAP 5-325MG 1 EACH TAB PO PRN (12:32)
--- NOTE | 2024-01-12 12:37 | P.PN ---
Subjective Progress Note Date: 01/12/24 Hospital course: Patient is a 33-year-old female with a past medical history of ESRD on hemodialysis, type 1 diabetes, hypertension, and dyslipidemia. She presented to the emergency department on 12/27/2023 with acute on chronic shortness of breath. She first discovered about renal disease when she became , and subsequently was preeclamptic at the later stages of . She was started on hemodialysis 1 month prior to delivery. She remained on hemodialysis ever since and is currently planning on getting pancreatic and renal transplant at [facility]. However, 3 weeks ago, she developed sudden onset bilateral vision loss. She initially presented to [facility], and was transferred to [facility]. She claims that workup at that hospital showed possible infection of the eye and was started on IV antibiotics and later discharged on oral antibiotics. She was only home for 1 day before she then started developing worsening shortness of breath and presented to our facility. In the emergency room patient underwent full evaluation. Vital signs upon arrival show patient to be in hypertensive urgency with blood pressure 210/140 and BiPAP dependent with a heart rate in the 130's. She was started on a nitroglycerin drip which improved her blood pressure and heart rate. Labs were completed and reviewed. CBC demonstrated leukocytosis with WBC count of 30.9 and normocytic anemia with hemoglobin of 8.2 BMP revealed hyperkalemia with potassium of 6.3 and renal function consistent with ESRD with BUN of 71, cr eatinine of 6.93, and GFR of 7. Liver profile revealing elevated AST of 44, total protein of 5.7 and albumin of 3.1. Procalcitonin 0.23. VBG showed pH of 7.48 and pCO2 of 33. Coags were unremarkable. Influenza A, influenza B, RSV, and COVID were negative. Chest x-ray demonstrated cardiomegaly with diffuse interstitial infiltrates scattered throughout the lungs. EKG demonstrated sinus tachycardia with a short WA interval, no ischemic changes and no peaked T waves. Patient was admitted under our services and nephrology and neurology were consulted. Records from [facility] were obtained revealing: Patient had dental caries with some facial cellulitis, for which she received anti biotics. Periorbital edema was also noted, unlikely to be infectious. Optic neuritis was ruled out. Patient was seen to have vitreous hemorrhage on the right, probable cause for her worsening right-sided vision. MRI brain also showed small area of infarct in the right occipital lobe. Cardiology was consulted and HAYDER was completed revealing a preserved EF of 55% and did not show any vegetation, PFO or intracardiac shunt. ESR 33 and CRP 5.7. TSH was elevated at 7.230 but free T4 was normal findings at 1.17. On 12/28/23 hemoglobin decreased to 6.7 resulting in transfusion of 1 unit PRBCs. Patient has been receiving daily dialysis. Overall improving. However patient is extremely weak unable to ambulate without assistance. Physical therapy evaluated and recommending placement in [facility] facility. Plan is for discharge to [facility] for rehab pending insurance authorization. Physical exam: Patient seen and examined at bedside. No acute events overnight. Pt sitting in the chair at bedside this morning. reports having generalized body aches and pains in her legs. Order placed for [place] 5/325 mg tablets. She reports that she remains unable to ambulate without assistance and currently awaiting insurance authorization for placement in [facility] for rehab. Vital signs reviewed and stable. General: Nontoxic, no distress and appears stated age Derm: Skin warm and dry, normal coloration for ethnicity. Head: Atraumatic, normocephalic and symmetric. Eyes: Reduced visual acuity bilaterally, worse on the left, pupils equal and reactive to light Mouth: no lip lesions, mucus membranes moist Cardiovascular: regular rate and rhythm with normal S1S2, no murmur, positive posterior tibial pulses bilaterally, and cap refill < 2 seconds. Right chest permacath dialysis catheter. Lungs: Respirations even, regular, and unlabored on room air. Lungs CTA bilaterally, no rhonchi, no rales, no wheezing, and no accessory muscle usage. Abdominal: soft, nontender to palpation, no guarding, no appreciable organomegaly Ext: ROM intact. No gross muscle atrophy, scant lower extremity edema, no contractures Neuro: Speech clear, face symmetrical and CN II-XII grossly intact with no noted focal neuro deficits Psych: Alert and oriented to person, place, time, and situation. Appropriate and pleasant affect. Assessment and Plan of Care: Acute hypoxic respiratory failure, resolved Acute pulmonary edema, resolved ESRD on hemodialysis Fluid volume overload Hyperkalemia, resolved. Continue dialysis Wednesday//Wednesday Hyponatremia, secondary to dilution from fluid overload Hypertensive urgency, improved Anemia of chronic disease, hemoglobin stable status post 1 unit of PRBC -Nephrology note reviewed, continue current therapy with dialysis T //Fridays. Recommending continuation of torsemide 40 mg daily. -Continue to monitor I's and O's -Patient to continue low potassium diet, darbepoetin 40 mcg q. 7 days, and nifedipine 60 mg twice daily. -Blood pressures better controlled. Continue Coreg 25 mg twice daily, hydralazine 100 mg 3 times daily, and nifedipine 60 mg twice daily -Peritoneal dialysis catheter was removed on 01/11/2024. Subacute bilateral vision loss Right vitreous hemorrhage Small acute/subacute right occipital infarct -Neurology evaluated, discontinued Plavix as she has been on it for 21 days, continue monotherapy with aspirin 81 mg daily and atorvastatin 40 mg nightly. Neurology recommending placement of 30-day event monitor prior to discharge. -Needs further outpatient follow-up with neurology and ophthalmology -Cardiology following, HAYDER was completed and did not show any vegetations or PFO. Patient to have 30-day event monitor placed at time of discharge Type 1 diabetes melitis Recurrent episodes of hypoglycemia throughout the night -Levemir decreased to 30 units daily and patient to continue fixed dose insulin 5 units 3 times daily with meals along with glycemic protocol with NovoLog sliding scale 4 times daily. Monitor for hypoglycemia -Hemoglobin A1c 7.8%. Constipation, resolved -Continue lactulose 30 g twice daily Chronic Conditions: Depression and anxiety GERD Hypothyroidism Dyslipidemia -Patient to continue daily medication regimen with aspirin 81 mg daily, atorvas tatin 40 mg nightly, carvedilol 25 mg twice daily, Depakote 500 mg twice daily, levothyroxine 176 mcg daily, Procardia 60 mg twice daily, Protonix 40 mg daily, and sertraline 200 mg daily. Data and imaging reviewed: -Blood glucose levels ranging from 47-282 over the past 24 hours. -Vital signs reviewed. Blood pressure 125/75, heart rate 91, respiratory rate 16, temp 98.2 F, and SpO2 of 93% on room air. DVT ppx: NAHED hose and SCDs Code status: Full code Anticipated discharge date: Pending insurance authorization Anticipated discharge place: [facility] once insurance authorization is obtained. Patient was seen independently by Nurse Pracitioner. This document was prepared using [employer] dictation software. Please allow for errors in car restorer, while rare they do occur. Objective - Vital Signs Vital signs: Vital Signs Temp 98.4 F 01/11/24 23:37 Pulse 96 01/12/24 03:06 Resp 16 01/12/24 03:06 BP 145/79 01/12/24 03:06 Pulse Ox 95 01/12/24 03:06 FiO2 30 01/05/24 08:00 Intake & Output 01/11/24 01/12/24 01/12/24 18:59 06:59 18:59 Intake Total 600 640 Output Total 605 1800 Balance -5 -1160 Weight 70 kg Intake: IV 400 Oral 200 240 Hemodialysis 400 Output: Urine 600 Hemodialysis 1800 Estimated Blood Loss 5 - Labs CBC & Chem 7: 01/10/24 07:31 01/10/24 07:31 Labs: Abnormal Lab Results - Last 24 Hours (Table) 01/11/24 01/11/24 01/11/24 Range/Units 11:37 12:40 13:24 POC Glucose (mg/dL) 158 H 188 H 232 H (70-110) mg/dL 01/11/24 01/11/24 01/12/24 Range/Units 16:49 20:23 02:40 POC Glucose (mg/dL) 233 H 133 H 47 L (70-110) mg/dL 01/12/24 01/12/24 01/12/24 Range/Units 02:56 03:18 07:01 POC Glucose (mg/dL) 51 L 64 L 69 L (70-110) mg/dL
[2024-01-12 13:14] VITALS: BMI 23.4
[2024-01-12] MEDS: INSULIN DETEMIR (LEVEMIR) 100 UNIT/ML SYR SQ SCH (13:48)
[2024-01-12 16:38] LABS: Glucose,Whole Blood 209 mg/dL (70-110)
[2024-01-12 20:07] LABS: Glucose,Whole Blood 138 mg/dL (70-110)
[2024-01-13 06:27] LABS: Glucose,Whole Blood 123 mg/dL (70-110)
[2024-01-13 06:34] LABS: Anisocytosis Slight; Basophils # (A) 0.1 k/uL (0-0.2); Basophils % (A) 1 %; Eosinophils # (A) 1.5 k/uL (0-0.7); Eosinophils % (A) 15 %; HCT 24.7 % (34.0-46.0); Lymphocytes % (A) 10 %; MCV 96.9 fL (80.0-100.0); Macrocytosis Slight; Mean Platelet Volume 7.7; Monocytes # (A) 0.8 k/uL (0-1.0); Monocytes % (A) 8 %; Neutrophils # (A) 6.7 k/uL (1.3-7.7); Neutrophils % (A) 65 %; Platelet Count 401 k/uL (150-450); RBC 2.55 m/uL (3.80-5.40); RDW 16.5 % (11.5-15.5); WBC 10.4 k/uL (3.8-10.6)
[2024-01-13 06:35] LABS: MCH 31.1 pg (25.0-35.0); MCHC 32.3 g/dL (31.0-37.0)
[2024-01-13 07:13] LABS: Glucose,Whole Blood 191 mg/dL (70-110)
[2024-01-13 08:20] LABS: African American GFR (CKD) 10 (>60 ml/min/1.73 sqM); Anion Gap 12 mmol/L; Blood Urea Nitrogen 54 mg/dL (7-17); Calcium 8.8 mg/dL (8.4-10.2); Carbon Dioxide 19 mmol/L (22-30); Chloride 102 mmol/L (98-107); Glucose 184 mg/dL (74-99); Non-African American GFR(CKD) 9 (>60 ml/min/1.73 sqM); Potassium 5.9 mmol/L (3.5-5.1); Sodium 133 mmol/L (137-145)
--- NOTE | 2024-01-13 10:30 | P.PN ---
Subjective Patient is seen in follow-up for end-stage renal disease. She is maintained on hemodialysis on Wednesday schedule. No active complaints. Denies chest pain or shortness of breath. Tolerating dialysis well. Vital signs are stable. General: No acute distress. HEENT: Head exam is unremarkable. On room air. LUNGS: No audible rhonchi or wheezes. HEART: Rate and Rhythm are regular. ABDOMEN: Nontender. EXTREMITITES: No edema. Objective - Vital Signs Vital signs: Vital Signs Temp 98.4 F 01/13/24 08:15 Pulse 95 01/13/24 08:15 Resp 16 01/13/24 08:15 BP 132/77 01/13/24 08:15 Pulse Ox 96 01/13/24 08:15 FiO2 30 01/05/24 08:00 Intake & Output 01/12/24 01/13/24 01/13/24 18:59 06:59 18:59 Intake Total 910 20 490 Output Total 500 800 Balance 410 20 -310 Weight 70 kg 62.3 kg Intake: IV 10 20 10 Invasive Line 4 10 20 10 Oral 900 480 Output: Urine 500 800 Other: Voiding Method Toilet Toilet # Bowel Movements 1 - Labs CBC & Chem 7: 01/13/24 06:12 01/13/24 07:48 Labs: Abnormal Lab Results - Last 24 Hours (Table) 01/12/24 01/12/24 01/12/24 Range/Units 11:39 16:32 19:56 RBC (3.80-5.40) m/uL Hgb (11.4-16.0) gm/dL Hct (34.0-46.0) % RDW (11.5-15.5) % Eosinophils # (0-0.7) k/uL Sodium (137-145) mmol/L Potassium (3.5-5.1) mmol/L Carbon Dioxide (22-30) mmol/L BUN (7-17) mg/dL Creatinine (0.52-1.04) mg/dL Glucose (74-99) mg/dL POC Glucose (mg/dL) 282 H 209 H 138 H (70-110) mg/dL 01/13/24 01/13/24 01/13/24 Range/Units 06:08 06:12 07:12 RBC 2.55 L (3.80-5.40) m/uL Hgb 8.0 L (11.4-16.0) gm/dL Hct 24.7 L (34.0-46.0) % RDW 16.5 H (11.5-15.5) % Eosinophils # 1.5 H (0-0.7) k/uL Sodium (137-145) mmol/L Potassium (3.5-5.1) mmol/L Carbon Dioxide (22-30) mmol/L BUN (7-17) mg/dL Creatinine (0.52-1.04) mg/dL Glucose (74-99) mg/dL POC Glucose (mg/dL) 123 H 191 H (70-110) mg/dL 01/13/24 Range/Units 07:48 RBC (3.80-5.40) m/uL Hgb (11.4-16.0) gm/dL Hct (34.0-46.0) % RDW (11.5-15.5) % Eosinophils # (0-0.7) k/uL Sodium 133 L (137-145) mmol/L Potassium 5.9 H (3.5-5.1) mmol/L Carbon Dioxide 19 L (22-30) mmol/L BUN 54 H (7-17) mg/dL Creatinine 5.87 H (0.52-1.04) mg/dL Glucose 184 H (74-99) mg/dL POC Glucose (mg/dL) (70-110) mg/dL Assessment and Plan Plan: Assessment: 1. End-stage renal disease maintained on hemodialysis on Wednesday schedule via right chest permacath. PD catheter removed January 11, 2024 as she is not interested in doing PD at this point. 2. Acute hypoxic respiratory failure. Improved. 3. Volume overload. Improved with ultrafiltration. 4. Type 1 diabetes mellitus. 5. 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 Neurology following. On aspirin and statin. 6. Hypertension with chronic kidney disease. 7. Hyperkalemia secondary to chronic kidney disease. Expect improvement postdialysis. 8. Anemia of chronic kidney disease. Status post blood transfusion this admission. On Aranesp. Plan: Currently seen while undergoing hemodialysis. Phosphorus level 4.1 dated December 28, 2023. No vegetation noted on HAYDER. Preserved ejection fraction. Low potassium diet Hold hydralazine for systolic blood pressure less than 120. Maintain torsemide. Rehab upon discharge.
[2024-01-13 11:47] LABS: Glucose,Whole Blood 146 mg/dL (70-110)
--- NOTE | 2024-01-13 12:59 | P.PN ---
Subjective Progress Note Date: 01/13/24 Hospital course: Patient is a 33-year-old female with a past medical history of ESRD on hemodialysis, type 1 diabetes, hypertension, and dyslipidemia. She presented to the emergency department on 12/27/2023 with acute on chronic shortness of breath. She first discovered about renal disease when she became , and subsequently was preeclamptic at the later stages of . She was started on hemodialysis 1 month prior to delivery. She remained on hemodialysis ever since and is currently planning on getting pancreatic and renal transplant at [facility]. However, 3 weeks ago, she developed sudden onset bilateral vision loss. She initially presented to [facility], and was transferred to [facility]. She claims that workup at that hospital showed possible infection of the eye and was started on IV antibiotics and later discharged on oral antibiotics. She was only home for 1 day before she then started developing worsening shortness of breath and presented to our facility. In the emergency room patient underwent full evaluation. Vital signs upon arr ival show patient to be in hypertensive urgency with blood pressure 210/140 and BiPAP dependent with a heart rate in the 130's. She was started on a nitroglycerin drip which improved her blood pressure and heart rate. Labs were completed and reviewed. CBC demonstrated leukocytosis with WBC count of 30.9 and normocytic anemia with hemoglobin of 8.2 BMP revealed hyperkalemia with potassium of 6.3 and renal function consistent with ESRD with BUN of 71, creatinine of 6.93, and GFR of 7. Liver profile revealing elevated AST of 44, total protein of 5.7 and albumin of 3.1. Procalcitonin 0.23. VBG showed pH of 7.48 and pCO2 of 33. Coags were unremarkable. Influenza A, influenza B, RSV, and COVID were negative. Chest x-ray demonstrated cardiomegaly with diffuse interstitial infiltrates scattered throughout the lungs. EKG demonstrated sinus tachycardia with a short [place] interval, no ischemic changes and no peaked T waves. Patient was admitted under our services and nephrology and neurology were consulted. Records from [facility] were obtained revealing: Patient had dental caries with some facial cellulitis, for which she received antibiotics. Periorbital edema was also noted, unlikely to be infectious. Optic neuritis was ruled out. Patient was seen to have vitreous hemorrhage on the right, probable cause for her worsening right-sided vision. MRI brain also showed small area of infarct in the right occipital lobe. Cardiology was consulted and HAYDER was completed revealing a preserved EF of 55% and did not show any vegetation, PFO or intracardiac shunt. ESR 33 and CRP 5.7. TSH was elevated at 7.230 but free T4 was normal findings at 1.17. On 12/28/23 hemoglobin de creased to 6.7 resulting in transfusion of 1 unit PRBCs. Patient has been receiving daily dialysis. Overall improving. However patient is extremely weak unable to ambulate without assistance. Physical therapy evaluated and recommending placement in alf facility. Plan is for discharge to [facility] for rehab pending insurance authorization. Physical exam: Patient seen and examined at bedside. No acute events overnight. Vital signs reviewed and stable. General: Nontoxic, no distress and appears stated age Derm: Skin warm and dry, normal coloration for ethnicity. Head: Atraumatic, normocephalic and symmetric. Eyes: Reduced visual acuity bilaterally, worse on the left, pupils equal and reactive to light Mouth: no lip lesions, mucus membranes moist Cardiovascular: regular rate and rhythm with normal S1S2, no murmur, positive posterior tibial pulses bilaterally, and cap refill < 2 seconds. Right chest permacath dialysis catheter. Lungs: Respirations even, regular, and unlabored on room air. Lungs CTA bilaterally, no rhonchi, no rales, no wheezing, and no accessory muscle usage. Abdominal: soft, nontender to palpation, no guarding, no appreciable organomegaly Ext: ROM intact. No gross muscle atrophy, scant lower extremity edema, no contractures Neuro: Speech clear, face symmetrical and CN II-XII grossly intact with no noted focal neuro deficits Psych: Alert and oriented to person, place, time, and situation. Appropriate and pleasant affect. Assessment and Plan of Care: Acute hypoxic respiratory failure, resolved Acute pulmonary edema, resolved ESRD on hemodialysis Fluid volume overload Hyperkalemia, Continue dialysis Wednesday//Wednesday Hyponatremia, secondary to dilution from fluid overload Hypertensive urgency, improved Anemia of chronic disease, hemoglobin stable status post 1 unit of PRBC -Nephrology note reviewed, continue current therapy with dialysis Wednesday//Fridays. Recommending continuation of torsemide 40 mg daily. -Continue to monitor I's and O's -Patient to continue low potassium diet, darbepoetin 40 mcg q. 7 days, and nifedipine 60 mg twice daily. -Blood pressures better controlled. Continue Coreg 25 mg twice daily, hydralazine 100 mg 3 times daily, and nifedipine 60 mg twice daily -Peritoneal dialysis catheter was removed on 01/11/2024. Subacute bilateral vision loss Right vitreous hemorrhage Small acute/subacute right occipital infarct -Neurology evaluated, discontinued Plavix as she has been on it for 21 days, continue monotherapy with aspirin 81 mg daily and atorvastatin 40 mg nightly. Neurology recommending placement of 30-day event monitor prior to discharge. -Needs further outpatient follow-up with neurology and ophthalmology -Cardiology following, HAYDER was completed and did not show any vegetations or PFO. Patient to have 30-day event monitor placed at time of discharge Type 1 diabetes melitis Recurrent episodes of hypoglycemia throughout the night -Levemir decreased to 30 units daily and patient to continue fixed dose insulin 5 units 3 times daily with meals along with glycemic protocol with NovoLog sliding scale 4 times daily. Monitor for hypoglycemia -Hemoglobin A1c 7.8%. Constipation, resolved -Continue lactulose 30 g twice daily Chronic Conditions: Depression and anxiety GERD Hypothyroidism Dyslipidemia -Patient to continue daily medication regimen with aspirin 81 mg daily, atorvastatin 40 mg nightly, carvedilol 25 mg twice daily, Depakote 500 mg twice daily, levothyroxine 176 mcg daily, Procardia 60 mg twice daily, Protonix 40 mg daily, and sertraline 200 mg daily. Data and imaging reviewed: -Hemoglobin 8, potassium 5.9, creatinine 5.87, blood sugars range between 1 23-1 84 DVT ppx: NAHED matteoavery and SCDs Code status: Full code Anticipated discharge date: Pending insurance authorization Anticipated discharge place: [facility] once insurance authorization is obtained. Objective - Vital Signs Vital signs: Vital Signs Temp 98.1 F 01/13/24 12:32 Pulse 98 01/13/24 12:32 Resp 16 01/13/24 12:32 BP 184/99 01/13/24 12:32 Pulse Ox 96 01/13/24 12:32 FiO2 30 01/05/24 08:00 Intake & Output 01/12/24 01/13/24 01/13/24 18:59 06:59 18:59 Intake Total 910 20 490 Output Total 500 800 Balance 410 20 -310 Weight 70 kg 62.3 kg Intake: IV 10 20 10 Invasive Line 4 10 20 10 Oral 900 480 Output: Urine 500 800 Other: Voiding Method Toilet Toilet Toilet # Bowel Movements 1 - Labs CBC & Chem 7: 01/13/24 06:12 01/13/24 07:48 Labs: Abnormal Lab Results - Last 24 Hours (Table) 01/12/24 01/12/24 01/13/24 Range/Units 16:32 19:56 06:08 RBC (3.80-5.40) m/uL Hgb (11.4-16.0) gm/dL Hct (34.0-46.0) % RDW (11.5-15.5) % Eosinophils # (0-0.7) k/uL Sodium (137-145) mmol/L Potassium (3.5-5.1) mmol/L Carbon Dioxide (22-30) mmol/L BUN (7-17) mg/dL Creatinine (0.52-1.04) mg/dL Glucose (74-99) mg/dL POC Glucose (mg/dL) 209 H 138 H 123 H (70-110) mg/dL 01/13/24 01/13/24 01/13/24 Range/Units 06:12 07:12 07:48 RBC 2.55 L (3.80-5.40) m/uL Hgb 8.0 L (11.4-16.0) gm/dL Hct 24.7 L (34.0-46.0) % RDW 16.5 H (11.5-15.5) % Eosinophils # 1.5 H (0-0.7) k/uL Sodium 133 L (137-145) mmol/L Potassium 5.9 H (3.5-5.1) mmol/L Carbon Dioxide 19 L (22-30) mmol/L BUN 54 H (7-17) mg/dL Creatinine 5.87 H (0.52-1.04) mg/dL Glucose 184 H (74-99) mg/dL POC Glucose (mg/dL) 191 H (70-110) mg/dL 01/13/24 Range/Units 11:45 RBC (3.80-5.40) m/uL Hgb (11.4-16.0) gm/dL Hct (34.0-46.0) % RDW (11.5-15.5) % Eosinophils # (0-0.7) k/uL Sodium (137-145) mmol/L Potassium (3.5-5.1) mmol/L Carbon Dioxide (22-30) mmol/L BUN (7-17) mg/dL Creatinine (0.52-1.04) mg/dL Glucose (74-99) mg/dL POC Glucose (mg/dL) 146 H (70-110) mg/dL
[2024-01-13 16:36] LABS: Glucose,Whole Blood 193 mg/dL (70-110)
[2024-01-13 19:54] LABS: Glucose,Whole Blood 122 mg/dL (70-110)
--- NOTE | 2024-01-14 05:06 | XR ---
EXAM: XR Chest, 1 View CLINICAL HISTORY: Hypoxia TECHNIQUE: Frontal view of the chest. COMPARISON: 12/27/2023. FINDINGS: Right internal jugular central venous line with tip in the right atrium. Heart is normal in size. Interval decrease in multifocal bilateral infiltrates. No definite pleural effusion or pneumothorax. Bones are unchanged. IMPRESSION: Interval decrease in diffuse infiltrates which may represent improving pulmonary edema versus improving pneumonia.
[2024-01-14 05:50] LABS: Glucose,Whole Blood 365 mg/dL (70-110)
[2024-01-14 07:03] LABS: Glucose,Whole Blood 336 mg/dL (70-110)
--- NOTE | 2024-01-14 09:54 | P.PN ---
Subjective Patient is seen in follow-up for end-stage renal disease. She is maintained on hemodialysis on Wednesday schedule. No active complaints. States she became short of breath last night but is feeling better now. Vital signs are stable. General: No acute distress. HEENT: Head exam is unremarkable. On 2 L nasal cannula. LUNGS: No audible rhonchi or wheezes. HEART: Rate and Rhythm are regular. ABDOMEN: Nontender. EXTREMITITES: No edema. Objective - Vital Signs Vital signs: Vital Signs Temp 98.5 F 01/14/24 08:00 Pulse 93 01/14/24 08:00 Resp 20 01/14/24 08:00 BP 155/89 01/14/24 08:00 Pulse Ox 98 01/14/24 08:00 FiO2 30 01/05/24 08:00 Intake & Output 01/13/24 01/14/24 01/14/24 18:59 06:59 18:59 Intake Total 2250 30 Output Total 6750 Balance -4500 30 Weight 74 kg Intake: IV 10 30 Invasive Line 4 10 30 Oral 1440 Hemodialysis 800 Output: Urine 950 Hemodialysis 5800 Other: Voiding Method Toilet Toilet Toilet # Voids 1 # Bowel Movements 1 - Labs CBC & Chem 7: 01/13/24 06:12 01/13/24 07:48 Labs: Abnormal Lab Results - Last 24 Hours (Table) 01/13/24 01/13/24 01/13/24 Range/Units 11:45 16:33 19:52 POC Glucose (mg/dL) 146 H 193 H 122 H (70-110) mg/dL 01/14/24 01/14/24 Range/Units 05:48 07:02 POC Glucose (mg/dL) 365 H 336 H (70-110) mg/dL Assessment and Plan Plan: Assessment: 1. End-stage renal disease maintained on hemodialysis on Wednesday schedule via right chest permacath. PD catheter removed January 11, 2024 as she is not interested in doing PD at this point. 2. Acute hypoxic respiratory failure. Improved. 3. Volume overload. Improved with ultrafiltration. 4. Type 1 diabetes mellitus. 5. 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 Neurology following. On aspirin and statin. 6. Hypertension with chronic kidney disease. 7. Hyperkalemia secondary to chronic kidney disease. Expect improvement postdialysis. 8. Anemia of chronic kidney disease. Status post blood transfusion this admission. On Aranesp. Plan: Show treatment of hemodialysis today mostly for ultrafiltration purposes. Phosphorus level 4.1 dated December 28, 2023. No vegetation noted on HAYDER. Preserved ejection fraction. Low potassium diet Hold hydralazine for systolic blood pressure less than 120. Maintain torsemide. Rehab upon discharge.
[2024-01-14 10:16] LABS: African American GFR (CKD) 14 (>60 ml/min/1.73 sqM); Anion Gap 12 mmol/L; Blood Urea Nitrogen 42 mg/dL (7-17); Carbon Dioxide 22 mmol/L (22-30); Chloride 98 mmol/L (98-107); Glucose 299 mg/dL (74-99); Non-African American GFR(CKD) 12 (>60 ml/min/1.73 sqM); Sodium 132 mmol/L (137-145)
[2024-01-14 10:30] LABS: Potassium 6.3 mmol/L (3.5-5.1)
--- NOTE | 2024-01-14 11:22 | P.PN ---
Subjective Progress Note Date: 01/14/24 Hospital course: Patient is a 33-year-old female with a past medical history of ESRD on hemodialysis, type 1 diabetes, hypertension, and dyslipidemia. She presented to the emergency department on 12/27/2023 with acute on chronic shortness of breath. She first discovered about renal disease when she became , and subsequently was preeclamptic at the later stages of . She was started on hemodialysis 1 month prior to delivery. She remained on hemodialysis ever since and is currently planning on getting pancreatic and renal transplant at [facility]. However, 3 weeks ago, she developed sudden onset bilateral vision loss. She initially presented to [facility], and was transferred to [facility]. She claims that workup at that hospital showed possible infection of the eye and was started on IV antibiotics and later discharged on oral antibiotics. She was only home for 1 day before she then started developing worsening shortness of breath and presented to our facility. In the emergency room patient underwent full evaluation. Vital signs upon arr ival show patient to be in hypertensive urgency with blood pressure 210/140 and BiPAP dependent with a heart rate in the 130's. She was started on a nitroglycerin drip which improved her blood pressure and heart rate. Labs were completed and reviewed. CBC demonstrated leukocytosis with WBC count of 30.9 and normocytic anemia with hemoglobin of 8.2 BMP revealed hyperkalemia with potassium of 6.3 and renal function consistent with ESRD with BUN of 71, creatinine of 6.93, and GFR of 7. Liver profile revealing elevated AST of 44, total protein of 5.7 and albumin of 3.1. Procalcitonin 0.23. VBG showed pH of 7.48 and pCO2 of 33. Coags were unremarkable. Influenza A, influenza B, RSV, and COVID were negative. Chest x-ray demonstrated cardiomegaly with diffuse interstitial infiltrates scattered throughout the lungs. EKG demonstrated sinus tachycardia with a short [place] interval, no ischemic changes and no peaked T waves. Patient was admitted under our services and nephrology and neurology were consulted. Records from [facility] were obtained revealing: Patient had dental caries with some facial cellulitis, for which she received antibiotics. Periorbital edema was also noted, unlikely to be infectious. Optic neuritis was ruled out. Patient was seen to have vitreous hemorrhage on the right, probable cause for her worsening right-sided vision. MRI brain also showed small area of infarct in the right occipital lobe. Cardiology was consulted and HAYDER was completed revealing a preserved EF of 55% and did not show any vegetation, PFO or intracardiac shunt. ESR 33 and CRP 5.7. TSH was elevated at 7.230 but free T4 was normal findings at 1.17. On 12/28/23 hemoglobin de creased to 6.7 resulting in transfusion of 1 unit PRBCs. Patient has been receiving daily dialysis. Overall improving. However patient is extremely weak unable to ambulate without assistance. Physical therapy evaluated and recommending placement in senior care facility. Plan is for discharge to [facility] for rehab pending insurance authorization. Physical exam: Patient seen and examined at bedside. No acute events overnight. Was feeling slightly short of breath overnight. Now feeling better. Vital signs reviewed and stable. General: Nontoxic, no distress and appears stated age Derm: Skin warm and dry, normal coloration for ethnicity. Head: Atraumatic, normocephalic and symmetric. Eyes: Reduced visual acuity bilaterally, worse on the left, pupils equal and reactive to light Mouth: no lip lesions, mucus membranes moist Cardiovascular: regular rate and rhythm with normal S1S2, no murmur, positive posterior tibial pulses bilaterally, and cap refill < 2 seconds. Right chest permacath dialysis catheter. Lungs: Respirations even, regular, and unlabored on room air. Lungs CTA bilaterally, no rhonchi, no rales, no wheezing, and no accessory muscle usage. Abdominal: soft, nontender to palpation, no guarding, no appreciable organomegaly Ext: ROM intact. No gross muscle atrophy, scant lower extremity edema, no contractures Neuro: Speech clear, face symmetrical and CN II-XII grossly intact with no noted focal neuro deficits Psych: Alert and oriented to person, place, time, and situation. Appropriate and pleasant affect. Assessment and Plan of Care: Acute hypoxic respiratory failure, resolved Acute pulmonary edema, resolved ESRD on hemodialysis Fluid volume overload Hyperkalemia, Continue dialysis Wednesday//Wednesday Hyponatremia, secondary to dilution from fluid overload Hypertensive urgency, improved Anemia of chronic disease, hemoglobin stable status post 1 unit of PRBC -Nephrology note reviewed, continue current therapy with dialysis Wednesday//Fridays. Recommending continuation of torsemide 40 mg daily. -Continue to monitor I's and O's -Patient to continue low potassium diet, darbepoetin 40 mcg q. 7 days, and nifedipine 60 mg twice daily. -Blood pressures better controlled. Continue Coreg 25 mg twice daily, hydralazine 100 mg 3 times daily, and nifedipine 60 mg twice daily -Peritoneal dialysis catheter was removed on 01/11/2024. Subacute bilateral vision loss Right vitreous hemorrhage Small acute/subacute right occipital infarct -Neurology evaluated, discontinued Plavix as she has been on it for 21 days, continue monotherapy with aspirin 81 mg daily and atorvastatin 40 mg nightly. Neurology recommending placement of 30-day event monitor prior to discharge. -Needs further outpatient follow-up with neurology and ophthalmology -Cardiology following, HAYDER was completed and did not show any vegetations or PFO. Patient to have 30-day event monitor placed at time of discharge Type 1 diabetes melitis Recurrent episodes of hypoglycemia throughout the night -Levemir decreased to 30 units daily and patient to continue fixed dose insulin 5 units 3 times daily with meals along with glycemic protocol with NovoLog sliding scale 4 times daily. Monitor for hypoglycemia -Hemoglobin A1c 7.8%. Constipation, resolved -Continue lactulose 30 g twice daily Chronic Conditions: Depression and anxiety GERD Hypothyroidism Dyslipidemia -Patient to continue daily medication regimen with aspirin 81 mg daily, atorvastatin 40 mg nightly, carvedilol 25 mg twice daily, Depakote 500 mg twice daily, levothyroxine 176 mcg daily, Procardia 60 mg twice daily, Protonix 40 mg daily, and sertraline 200 mg daily. Data and imaging reviewed: -Sodium 132, potassium 6.3, creatinine 4.54, blood sugars range between 1 22-3 65 Chest x-ray independently interpreted, shows interstitial opacities but improving. DVT ppx: NAHED mccollum and SCDs Code status: Full code Anticipated discharge date: Pending insurance authorization Anticipated discharge place: [facility] once insurance authorization is obtained. Objective - Vital Signs Vital signs: Vital Signs Temp 98.4 F 01/14/24 11:17 Pulse 89 01/14/24 11:17 Resp 20 01/14/24 11:17 BP 146/83 01/14/24 11:17 Pulse Ox 98 01/14/24 11:17 FiO2 30 01/05/24 08:00 Intake & Output 01/13/24 01/14/24 01/14/24 18:59 06:59 18:59 Intake Total 2250 30 360 Output Total 6750 Balance -4500 30 360 Weight 74 kg Intake: IV 10 30 Invasive Line 4 10 30 Oral 1440 360 Hemodialysis 800 Output: Urine 950 Hemodialysis 5800 Other: Voiding Method Toilet Toilet Toilet # Voids 1 # Bowel Movements 1 - Labs CBC & Chem 7: 01/13/24 06:12 01/14/24 08:32 Labs: Abnormal Lab Results - Last 24 Hours (Table) 01/13/24 01/13/24 01/13/24 Range/Units 11:45 16:33 19:52 Sodium (137-145) mmol/L Potassium (3.5-5.1) mmol/L BUN (7-17) mg/dL Creatinine (0.52-1.04) mg/dL Glucose (74-99) mg/dL POC Glucose (mg/dL) 146 H 193 H 122 H (70-110) mg/dL 01/14/24 01/14/24 01/14/24 Range/Units 05:48 07:02 08:32 Sodium 132 L (137-145) mmol/L Potassium 6.3 H* (3.5-5.1) mmol/L BUN 42 H (7-17) mg/dL Creatinine 4.54 H (0.52-1.04) mg/dL Glucose 299 H (74-99) mg/dL POC Glucose (mg/dL) 365 H 336 H (70-110) mg/dL
[2024-01-14 11:48] LABS: Glucose,Whole Blood 425 mg/dL (70-110)
--- NOTE | 2024-01-14 13:56 | P.DS ---
Providers Date of admission: 12/27/23 06:47 Expected date of discharge: 01/14/24 Attending physician: Agnes Cortez MD Consults: 12/27/23 06:47 Consult Physician Urgent Consulting Provider: Charlene Lim Consult Reason/Comments: End-stage renal disease with fluid overload and hyperkalemia Do you want consulting provider notified?: Already Contacted 12/27/23 10:34 Consult Physician Routine Consulting Provider: Lakhwinder Thornton Consult Reason/Comments: acute blindness Do you want consulting provider notified?: Yes 12/28/23 10:16 Consult Physician Urgent Consulting Provider: Shree Moncada Consult Reason/Comments: acute bilateral vision loss Do you want consulting provider notified?: Yes 12/29/23 16:57 Consult Physician Routine Consulting Provider: Azeem Avila Consult Reason/Comments: Recent acute/subacute occipital infarct, needs HAYDER and event monitor Do you want consulting provider notified?: Yes 01/11/24 13:53 Consult Physician Routine Consulting Provider: Delmar Maurice Consult Reason/Comments: eval for ipr Do you want consulting provider notified?: Yes Primary care physician: Stated None Hospital Course: Discharge Diagnosis: Acute hypoxic respiratory failure Acute pulmonary edema ESRD on hemodialysis Fluid volume overload Hyperkalemia Hyponatremia Hypertensive urgency Anemia of chronic disease, hemoglobin stable status post 1 unit of PRBC Subacute bilateral vision loss Right vitreous hemorrhage Small acute/subacute right occipital infarct Type 1 diabetes melitis Constipation, Depression and anxiety GERD Hypothyroidism Dyslipidemia Hospital Course: Patient is a 33-year-old female with a past medical history of ESRD on hemodialysis, type 1 diabetes, hypertension, and dyslipidemia. She presented to the emergency department on 12/27/2023 with acute on chronic shortness of breath. She first discovered about renal disease when she became , and subsequently was preeclamptic at the later stages of . She was started on hemodialysis 1 month prior to delivery. She remained on hemodialysis ever since and is currently planning on getting pancreatic and renal transplant at [facility]. However, 3 weeks ago, she developed sudden onset bilateral vision loss. She initially presented to [facility], and was transferred to [facility]. She claims that workup at that hospital showed possible infection of the eye and was started on IV antibiotics and later discharged on oral antibiotics. She was only home for 1 day before she then started developing worsening shortness of breath and presented to our facility. In the emergency room patient underwent full evaluation. Vital signs upon arrival show patient to be in hypertensive urgency with blood pressure 210/140 and BiPAP dependent with a heart rate in the 130's. She was started on a nitroglycerin drip which improved her blood pressure and heart rate. Labs were completed and reviewed. CBC demonstrated leukocytosis with WBC count of 30.9 and normocytic anemia with hemoglobin of 8.2 BMP revealed hyperkalemia with potassium of 6.3 and renal function consistent with ESRD with BUN of 71, creatinine of 6.93, and GFR of 7. Liver profile revealing elevated AST of 44, total protein of 5.7 and albumin of 3.1. Procalcitonin 0.23. VBG showed pH of 7.48 and pCO2 of 33. Coags were unremarkable. Influenza A, influenza B, RSV, and COVID were negative. Chest x-ray demonstrated cardiomegaly with diffuse interstitial infiltrates scattered throughout the lungs. EKG demonstrated sinus tachycardia with a short OR interval, no ischemic changes and no peaked T waves. Patient was admitted under our services and nephrology and neurology were consulted. Records from [facility] were obtained revealing: Patient had dental caries with some facial cellulitis, for which she received antibiotics. Periorbital edema was also noted, unlikely to be infectious. Optic neuritis was ruled out. Patient was seen to have vitreous hemorrhage on the right, probable cause for her worsening right-sided vision. MRI brain also showed small area of infarct in the right occipital lobe. Cardiology was consulted and HAYDER was completed revealing a preserved EF of 55% and did not show any vegetation, PFO or intracardiac shunt. ESR 33 and CRP 5.7. TSH was elevated at 7.230 but free T4 was normal findings at 1.17. On 12/28/23 hemoglobin decreased to 6.7 resulting in transfusion of 1 unit PRBCs. Patient has been receiving daily dialysis. Overall improving. However patient is extremely weak unable to ambulate without assistance. Physical therapy evaluated and recommending placement in retirement facility. Being discharged to subacute rehab. Patient seen and examined at bedside. Vital signs reviewed and stable. General: Nontoxic, no distress and appears stated age Derm: Skin warm and dry, normal coloration for ethnicity. Head: Atraumatic, normocephalic and symmetric. Eyes: Reduced visual acuity bilaterally, worse on the left, pupils equal and reactive to light Mouth: no lip lesions, mucus membranes moist Cardiovascular: regular rate and rhythm with normal S1S2, no murmur, positive posterior tibial pulses bilaterally, and cap refill < 2 seconds. Right chest permacath dialysis catheter. Lungs: Respirations even, regular, and unlabored on room air. Lungs CTA bila terally, no rhonchi, no rales, no wheezing, and no accessory muscle usage. Abdominal: soft, nontender to palpation, no guarding, no appreciable organomegaly Ext: ROM intact. No gross muscle atrophy, scant lower extremity edema, no contractures Neuro: Speech clear, face symmetrical and CN II-XII grossly intact with no noted focal neuro deficits Psych: Alert and oriented to person, place, time, and situation. Appropriate and pleasant affect. A total of 33 minutes of time were spent preparing this complex discharge summary. Patient was discharged on 01/14/2024 at 1356. Patient Condition at Discharge: Stable Plan - Discharge Summary Discharge Rx Participant: Yes New Discharge Prescriptions: New Docusate [Colace] 100 mg PO DAILY cap INSULIN ASPART (NovoLOG) [NovoLOG (formulary)] 5 unit SQ AC-TID each NIFEdipine XL [Procardia XL] 60 mg PO BID tab Metoclopramide [Reglan] 5 mg PO AC-BID tab Darbepoetin Artur [Aranesp] 40 mcg SQ Q7D each Torsemide [Demadex] 40 mg PO DAILY tab Insulin Detemir (Levemir) [Levemir] 30 unit SQ DAILY@1330 each INSULIN ASPART (NovoLOG) [NovoLOG (formulary)] 0 unit SQ ACHS each Continue Sertraline [Zoloft] 200 mg PO DAILY hydrALAZINE HCL [Apresoline] 100 mg PO TID Claiborne Caps 1 cap PO HS Lidocaine 5% Patch [Lidoderm 5% Patch] 1 patch TOPICAL BID Atorvastatin [Lipitor] 40 mg PO HS methocarbamoL [Robaxin-750] 750 mg PO QID Ondansetron [Zofran] 4 mg PO Q8HR PRN PRN Reason: Nausea And Vomiting HYDROcodone/APAP 5-325MG [Laredo 5-325] 1 tab PO Q6HR PRN 3 Days #10 tab PRN Reason: Pain Aspirin 81 mg PO DAILY #30 tab Levothyroxine Sodium [Synthroid] 175 mcg PO DAILY carvediloL [Coreg] 25 mg PO BID Divalproex ER [Depakote ER] 500 mg PO BID Pantoprazole [Protonix] 40 mg PO DAILY Discontinued Insulin Glargine,Hum.rec.anlog [Lantus Solostar Pen] 25 units SQ DAILY@1330 Sulfamethox-Tmp 800-160Mg [Bactrim DS 800-160 mg] 1 tab PO DAILY INSULIN LISPRO (humaLOG) [humaLOG] See Protocol SQ AC-TID PRN PRN Reason: Blood Sugar - High NIFEdipine [Adalat CC] 60 mg PO DAILY Clopidogrel [Plavix] 75 mg PO DAILY Discharge Medication List Aspirin 81 mg PO DAILY #30 tab 08/02/23 [Rx] Levothyroxine Sodium [Synthroid] 175 mcg PO DAILY 10/22/23 [History] Sertraline [Zoloft] 200 mg PO DAILY 10/22/23 [History] Atorvastatin [Lipitor] 40 mg PO HS 12/27/23 [History] Divalproex ER [Depakote ER] 500 mg PO BID 12/27/23 [History] Lidocaine 5% Patch [Lidoderm 5% Patch] 1 patch TOPICAL BID 12/27/23 [History] Ondansetron [Zofran] 4 mg PO Q8HR PRN 12/27/23 [History] Pantoprazole [Protonix] 40 mg PO DAILY 12/27/23 [History] Claiborne Caps 1 cap PO HS 12/27/23 [History] carvediloL [Coreg] 25 mg PO BID 12/27/23 [History] hydrALAZINE HCL [Apresoline] 100 mg PO TID 12/27/23 [History] methocarbamoL [Robaxin-750] 750 mg PO QID 12/27/23 [History] Darbepoetin Artur [Aranesp] 40 mcg SQ Q7D each 01/14/24 [Rx] Docusate [Colace] 100 mg PO DAILY cap 01/14/24 [Rx] HYDROcodone/APAP 5-325MG [Lared[place] 5-325] 1 tab PO Q6HR PRN 3 Days #10 tab 01/14/24 [Rx] INSULIN ASPART (NovoLOG) [NovoLOG (formulary)] 0 unit SQ ACHS each 01/14/24 [Rx] INSULIN ASPART (NovoLOG) [NovoLOG (formulary)] 5 unit SQ AC-TID each 01/14/24 [Rx] Insulin Detemir (Levemir) [Levemir] 30 unit SQ DAILY@1330 each 01/14/24 [Rx] Metoclopramide [Reglan] 5 mg PO AC-BID tab 01/14/24 [Rx] NIFEdipine XL [Procardia XL] 60 mg PO BID tab 01/14/24 [Rx] Torsemide [Demadex] 40 mg PO DAILY tab 01/14/24 [Rx] Follow up Appointment(s)/Referral(s): Gary Andrade DO [STAFF PHYSICIAN] - 1 Week Jose Alfredo Haque MD [STAFF PHYSICIAN] - 1 Week Rachael Conway MD [REFERRING] - 1 Week Uche Riley MD [REFERRING] - 1 Week Patient Instructions/Handouts: End Stage Kidney Disease (DC), Dialysis Diet (DC), Ischemic Stroke (DC), Diabetic Retinopathy (GEN) Activity/Diet/Wound Care/Special Instructions: Activity: As tolerated. Take breaks as needed. Diet: Heart healthy and carb consistent diet. Avoid salts, or foods with hidden salts such as canned or boxed foods and frozen dinners. Extra salt makes your heart work harder and traps the fluid in your body for longer. Special Instructions: Take all of your medications as directed and remember to keep all of your doctor's appointments and follow-up as needed. You are being discharged home with a 30-day event monitor. Thank you for allowing us to participate in your care, it was truly a pleasure having you for our patient!!! Discharge Disposition: TRANSFER TO SNF/ECF
[2024-01-14 15:21] VITALS: BP 148/89; PULSE 92; RESP 18; TEMP 98.5
== END 2024-01-14 16:30 | DRG 444 ==
LOC: EC 03:06 → 5NMEDONC 06:47 → 3SCARD 07:11
PROVIDERS: ADMIT Internal Medicine; ATTEND Internal Medicine
PROC: 5A09357 Assistance with Respiratory Ventilation, Less than 24 Consecutive Hours, Continuous Positive Airway Pressure (ICD-10-PCS; 2023-12-27)
PROC: 5A1D70Z Performance of Urinary Filtration, Intermittent, Less than 6 Hours Per Day (ICD-10-PCS; 2023-12-27)
PROC: 30233N1 Transfusion of Nonautologous Red Blood Cells into Peripheral Vein, Percutaneous Approach (ICD-10-PCS; 2023-12-28)
PROC: B24BZZ4 Ultrasonography of Heart with Aorta, Transesophageal (ICD-10-PCS; 2023-12-31)
PROC: 05HF33Z Insertion of Infusion Device into Left Cephalic Vein, Percutaneous Approach (ICD-10-PCS; 2023-12-31)
PROC: 02HV33Z Insertion of Infusion Device into Superior Vena Cava, Percutaneous Approach (ICD-10-PCS; 2023-12-31)
PROC: 0WPG03Z Removal of Infusion Device from Peritoneal Cavity, Open Approach (ICD-10-PCS; principal; 2024-01-11 12:45)
DX: E10.22 Type 1 diabetes mellitus with diabetic chronic kidney disease (principal); E10.42 Type 1 diabetes mellitus with diabetic polyneuropathy; J96.01 Acute respiratory failure with hypoxia; J81.0 Acute pulmonary edema; E10.43 Type 1 diabetes mellitus with diabetic autonomic (poly)neuropathy; H43.13 Vitreous hemorrhage, bilateral; I13.11 Hypertensive heart and chronic kidney disease without heart failure, with stage 5 chronic kidney disease, or end stage renal disease; N18.6 End stage renal disease; E10.36 Type 1 diabetes mellitus with diabetic cataract; Z99.2 Dependence on renal dialysis; E10.319 Type 1 diabetes mellitus with unspecified diabetic retinopathy without macular edema; Z79.4 Long term (current) use of insulin; Z76.82 Awaiting organ transplant status; I31.39 Other pericardial effusion (noninflammatory); J18.9 Pneumonia, unspecified organism; E87.1 Hypo-osmolality and hyponatremia; D63.1 Anemia in chronic kidney disease; I16.1 Hypertensive emergency; I65.23 Occlusion and stenosis of bilateral carotid arteries; F32.A Depression, unspecified; E03.9 Hypothyroidism, unspecified; I08.1 Rheumatic disorders of both mitral and tricuspid valves; H54.8 Legal blindness, as defined in USA; F41.9 Anxiety disorder, unspecified; K21.9 Gastro-esophageal reflux disease without esophagitis; E78.5 Hyperlipidemia, unspecified; K31.84 Gastroparesis; E87.5 Hyperkalemia; E87.70 Fluid overload, unspecified; K59.00 Constipation, unspecified; T38.0X5A Adverse effect of glucocorticoids and synthetic analogues, initial encounter; D72.828 Other elevated white blood cell count; H57.11 Ocular pain, right eye; M79.89 Other specified soft tissue disorders; Z79.890 Hormone replacement therapy; Z79.02 Long term (current) use of antithrombotics/antiplatelets; Z79.899 Other long term (current) drug therapy; Z79.82 Long term (current) use of aspirin; Z88.5 Allergy status to narcotic agent; Z88.6 Allergy status to analgesic agent; Z91.030 Bee allergy status; Z86.69 Personal history of other diseases of the nervous system and sense organs; Z87.891 Personal history of nicotine dependence; Z28.310 Unvaccinated for COVID-19; Z86.73 Personal history of transient ischemic attack (TIA), and cerebral infarction without residual deficits
CPT/HCPCS: 36410; 36415; 36430; 70450; 71045; 76937; 80048; 80053; 81025; 82607; 82728; 82746; 82803; 83036; 83540; 83550; 83605; 83735; 83880; 84100; 84132; 84145; 84439; 84443; 84484; 84703; 85025; 85027; 85610; 85652; 85730; 86140; 86850; 86900; 86901; 86920; 87636; 90935; 93005; 93270; 93306; 93312; 93320; 93325; 93880; 94660; 94760; 96365; 96366; 96375; 96376; 99291

== ENCOUNTER 2024-02-05 02:05 | Inpatient (IN) | payer OTHER ==
--- NOTE | 2024-02-05 02:15 | ED ---
SOB HPI - General Chief Complaint: Shortness of Breath Stated Complaint: sob Time Seen by Provider: 02/05/24 02:09 Source: EMS, RN notes reviewed, old records reviewed Mode of arrival: EMS Limitations: no limitations - History of Present Illness Initial Comments: This is a 34-year-old female presenting from EMS for severe distress severe respiratory distress with hypertensive emergency patient is currently significant for historian secondary to respiratory and clinical status MD Complaint: shortness of breath, chest pain, "asthma attack", anxiety -: hour(s) Severity: severe Severity scale (1-10): 10 Consistency: constant Improves With: nothing Worsens With: exertion, movement Known History Of: congestive heart failure Context: recent URI, anxiety, recent illness, other (Severely elevated blood pressure) Associated Symptoms: chest pain, pain with inspiration, cough, palpitations Treatments Prior to Arrival: oxygen, bronchodilator, NIPPV - Related Data Home Medications Medication Instructions Recorded Confirmed Levothyroxine Sodium [Synthroid] 175 mcg PO DAILY@0600 10/22/23 02/05/24 Sertraline [Zoloft] 200 mg PO DAILY@0800 10/22/23 02/05/24 Atorvastatin [Lipitor] 40 mg PO HS@2100 12/27/23 02/05/24 Divalproex ER [Depakote ER] 500 mg PO BID@0600,1700 12/27/23 02/05/24 Ondansetron [Zofran] 4 mg PO Q8HR PRN 12/27/23 02/05/24 Pantoprazole [Protonix] 40 mg PO DAILY@0600 12/27/23 02/05/24 [place] Caps 1 cap PO HS@209912/27/23 02/05/24 carvediloL [Coreg] 25 mg PO BID@0600,1700 12/27/23 02/05/24 hydrALAZINE HCL [Apresoline] 100 mg PO TID@0600,1400,2200 12/27/23 02/05/24 methocarbamoL [Robaxin-750] 750 mg PO QID@06,12,17,21 12/27/23 02/05/24 Aspirin 81 mg PO DAILY@0800 02/05/24 02/05/24 Docusate [Colace] 100 mg PO DAILY@0800 02/05/24 02/05/24 Lidocaine 4% Patch 1 patch TOPICAL DAILY@0800 02/05/24 02/05/24 Magnesium Hydroxide [Milk of 7,200 mg PO DAILY PRN 02/05/24 02/05/24 Magnesia Concentrate] Menthol [Biofreeze] 1 applic TOPICAL BID PRN 02/05/24 02/05/24 NIFEdipine XL [Procardia XL] 60 mg PO BID@0800,1700 02/05/24 02/05/24 Sevelamer [Renvela] 1,600 mg PO AC-TID@07,11,1830 02/05/24 02/05/24 Torsemide [Demadex] 40 mg PO DAILY@0800 02/05/24 02/05/24 bisacodyL [Dulcolax] 10 mg RECTAL DAILY PRN 02/05/24 02/05/24 Previous Rx's Medication Instructions Recorded ALPRAZolam [Xanax] 0.25 mg PO QID PRN #60 tab 02/14/24 Darbepoetin Artur [Aranesp] 40 mcg SQ Q7D each 02/14/24 HYDROcodone/APAP 5-325MG [[place] 1 tab PO Q8H PRN #20 tab 02/14/24 5-325] INSULIN ASPART (NovoLOG) [NovoLOG 0 unit SQ ACHS each 02/14/24 (formulary)] INSULIN ASPART (NovoLOG) [NovoLOG 7 unit SQ AC-BID@0730,1230 each 02/14/24 (formulary)] INSULIN ASPART (NovoLOG) [NovoLOG 10 unit SQ AC-SUPPER each 02/14/24 (formulary)] Insulin Detemir (Levemir) [Levemir] 15 unit SQ BID@0700,2100 each 02/14/24 Ipratropium-Albuterol Nebulize 3 ml INHALATION RT-TID PRN each 02/14/24 [Duoneb 0.5 mg-3 mg/3 ml Soln] Isosorbide Mononitrate ER [Imdur] 30 mg PO DAILY tab 02/14/24 Metoclopramide [Reglan] 5 mg PO AC-TID tab 02/14/24 cloNIDine 0.3 MG/24HR PATCH 1 patch TRANSDERM Q7D #4 patch 02/14/24 [Catapres-TTS] polyethylene glycoL 3350 [Miralax] 17 gm PO AC-LUNCH #527 gm 02/14/24 Allergies Allergy/AdvReac Type Severity Reaction Status Date / Time hydromorphone HCl Allergy Anaphylaxis Verified 02/05/24 13:04 [From Dilaudid] ibuprofen [From Motrin] Allergy unable to Verified 02/05/24 13:04 take due to kidney disease propoxyphene Allergy Rash/Hives Verified 02/05/24 13:04 [From Darvocet-N] tramadol Allergy Anaphylaxis Verified 02/05/24 13:04 venom-honey bee Allergy passes out Verified 02/05/24 13:04 [bee venom (honey bee)] Review of Systems ROS Statement: Those systems with pertinent positive or pertinent negative responses have been documented in the HPI. ROS Other: All systems not noted in ROS Statement are negative. Past Medical History Past Medical History: Diabetes Mellitus, GERD/Reflux, Hypertension, Renal Disease, Seizure Disorder, Thyroid Disorder Additional Past Medical History / Comment(s): Neuropathy, last seizure 2020, gastroparesis, headaches with dialysis, states "fast heart rate" since giving bi rth., receives Hemodialysis Wednesday- and Saturdays at [facility] [place] right chest hemodialysis catheter., severe HTN. patient awaiting Kidney and Pancrease Transplant. , states sometimes she has had stroke -like symptoms but no stroke., hx of c-diff 2013. History of Any Multi-Drug Resistant Organisms: None Reported Date of last positivie culture/infection: 2013 MDRO Source:: stool Past Surgical History: Adenoidectomy, Section, Cholecystectomy, Orthopedic Surgery, Tonsillectomy Additional Past Surgical History / Comment(s): 2 KNEE SCOPES, EAR TUBES, additional left knee surgery related to fracture, new [place] a cath jul 29, eye surgeries for diabetic retinopathy. Past Anesthesia/Blood Transfusion Reactions: Previous Problems w/ Anesthesia Additional Past Anesthesia/Blood Transfusion Reaction / Comment(s): confusion Past Psychological History: Anxiety, Depression Smoking Status: Former smoker Past Alcohol Use History: None Reported Past Drug Use History: Marijuana, Methamphetamine - Past Family History Father Family Medical History: Unable to Obtain Mother Family Medical History: No Reported History Grandfather Additional Family Medical History / Comment(s): Diabetes mellitus type 2 General Exam Limitations: altered mental status General appearance: alert, anxious, lethargic, in distress Head exam: Present: atraumatic, normocephalic, normal inspection Eye exam: Present: normal appearance, PERRL, EOMI. Absent: scleral icterus, conjunctival injection, periorbital swelling ENT exam: Present: normal exam, mucous membranes moist Neck exam: Present: normal inspection. Absent: tenderness, meningismus, lymphadenopathy Respiratory exam: Present: normal lung sounds bilaterally. Absent: respiratory distress, wheezes, rales, rhonchi, stridor Cardiovascular Exam: Present: regular rate, normal rhythm, normal heart sounds. Absent: systolic murmur, diastolic murmur, rubs, gallop, clicks GI/Abdominal exam: Present: soft, normal bowel sounds. Absent: distended, tenderness, guarding, rebound, rigid Extremities exam: Present: normal inspection, full ROM, normal capillary refill. Absent: tenderness, pedal edema, joint swelling, calf tenderness Back exam: Present: normal inspection Neurological exam: Present: alert, oriented X3, CN II-XII intact Psychiatric exam: Present: normal affect, normal mood Skin exam: Present: warm, dry, intact, normal color. Absent: rash Course Vital Signs 02/05/24 02/05/24 02/05/24 02:07 02:10 02:13 Temperature 98.4 F Pulse Rate 123 H Respiratory 28 H Rate Blood Pressure 199/124 Blood Pressure [Left Arm] O2 Sat by Pulse 90 L 99 Oximetry Fraction of 100 Inspired Oxygen (FIO2) 02/05/24 02/05/24 02/05/24 02:15 02:22 02:23 Temperature Pulse Rate 107 H Respiratory 26 H Rate Blood Pressure Blood Pressure [Left Arm] O2 Sat by Pulse Oximetry Fraction of 100 Inspired Oxygen (FIO2) 02/05/24 02/05/24 02/05/24 02:31 02:40 03:10 Temperature Pulse Rate 101 H 100 81 Respiratory 24 22 Rate Blood Pressure 179/120 166/113 Blood Pressure [Left Arm] O2 Sat by Pulse 99 99 Oximetry Fraction of Inspired Oxygen (FIO2) 02/05/24 02/05/24 02/05/24 03:31 03:41 04:00 Temperature Pulse Rate 81 82 91 Respiratory 20 18 20 Rate Blood Pressure 151/101 146/98 162/98 Blood Pressure [Left Arm] O2 Sat by Pulse 100 100 100 Oximetry Fraction of Inspired Oxygen (FIO2) 02/05/24 02/05/24 02/05/24 04:20 06:00 07:10 Temperature 98.5 F Pulse Rate 89 92 Respiratory 20 18 Rate Blood Pressure 145/87 157/93 Blood Pressure [Left Arm] O2 Sat by Pulse 100 100 Oximetry Fraction of 85 Inspired Oxygen (FIO2) 02/05/24 02/05/24 02/05/24 07:56 07:59 08:06 Temperature Pulse Rate 92 Respiratory 19 Rate Blood Pressure Blood Pressure [Left Arm] O2 Sat by Pulse Oximetry Fraction of 85 Inspired Oxygen (FIO2) 02/05/24 02/05/24 02/05/24 08:16 11:01 14:10 Temperature 98.7 F Pulse Rate 94 Respiratory 17 Rate Blood Pressure Blood Pressure 181/97 [Left Arm] O2 Sat by Pulse Oximetry Fraction of 70 Inspired Oxygen (FIO2) 02/05/24 02/05/24 02/05/24 15:02 15:15 16:18 Temperature Pulse Rate 96 95 Respiratory 17 Rate Blood Pressure 199/101 Blood Pressure [Left Arm] O2 Sat by Pulse 100 Oximetry Fraction of 50 Inspired Oxygen (FIO2) 02/05/24 02/05/24 02/05/24 16:29 16:30 17:15 Temperature Pulse Rate 108 H 114 H Respiratory 20 Rate Blood Pressure 180/100 Blood Pressure [Left Arm] O2 Sat by Pulse 98 97 Oximetry Fraction of Inspired Oxygen (FIO2) 02/05/24 02/05/24 02/05/24 18:03 19:57 20:17 Temperature 97.9 F Pulse Rate 105 H 94 87 Respiratory 20 13 Rate Blood Pressure 170/99 164/89 Blood Pressure [Left Arm] O2 Sat by Pulse 98 98 Oximetry Fraction of Inspired Oxygen (FIO2) 02/05/24 02/05/24 02/05/24 20:37 21:28 22:50 Temperature 98.2 F Pulse Rate 93 94 96 Respiratory 20 20 Rate Blood Pressure 176/105 182/103 Blood Pressure [Left Arm] O2 Sat by Pulse 97 97 Oximetry Fraction of Inspired Oxygen (FIO2) - Reevaluation(s) Reevaluation #1: 02/05/24 02:14 Medical record is reviewed Reevaluation #2: 02/05/24 03:47 Patient has mild to significant improvement in symptoms here in the ER on BiPAP with medications Reevaluation #3: 02/05/24 03:47 Patient informed of results and questions answered Reevaluation #4: Was pt. sent in by a medical professional or institution ([facility], CAN RECONDITIONER, urgent care, hospital, or fdc...) When possible be specific @ -no Did you speak to anyone other than the patient for history (EMS, parent, family, police, friend...)? What history was obtained from this source @ -no Did you review nursing and triage notes (agree or disagree)? Why? @ -agree Are old charts reviewed (outside hosp., previous admission, EMS record, old EKG, old radiological studies, urgent care reports/EKG's, fdc records)? Report findings @ -yes Differential Diagnosis (chest pain, altered mental status, abdominal pain women, abdominal pain men, vaginal bleeding, weakness, fever, dyspnea, syncope, headache, dizziness, GI bleed, back pain, seizure, CVA, palpatations, mental health, musculoskeletal)? @ -prior EKG interpreted by me (3pts min.). @ -yes X-rays interpreted by me (1pt min.). @ -yes significant pulmonary edema CT interpreted by me (1pt min.). @ -no U/S interpreted by me (1pt. min.). @ -no What testing was considered but not performed or refused? (CT, X-rays, U/S, labs)? Why? @ -none What meds were considered but not given or refused? Why? @ -none Did you discuss the management of the patient with other professionals (professionals i.e. [facility], [employer], lab, RT, psych nurse, protective services social worker, ethics instructor, teacher, family preservation officer, family independence case manager)? Give summary @ -no Was smoking cessation discussed for >3mins.? @ -no Was critical care preformed (if so, how long)? @ -yes31 Were there social determinants of health that impacted care today? How? (Homelessness, low income, unemployed, alcoholism, drug addiction, transportation, low edu. Level, literacy, decrease access to med. care, long term, rehab)? @ -none Was there de-escalation of care discussed even if they declined (Discuss DNR or withdrawal of care, Hospice)? DNR status @ -no What co-morbidities impacted this encounter? (DM, HTN, Smoking, COPD, CAD, Cancer, CVA, ARF, Chemo, Hep., AIDS, mental health diagnosis, sleep apnea, morbid obesity)? @ -none Was patient admitted / discharged? Hospital course, mention meds given and route, prescriptions, significant lab abnormalities, going to OR and other per tinent info. @ - 34 female will be admitted for severe hypertensive emergency with CHF. Fluid overload status on dialysis with respiratory failure and hypoxia Admitted Undiagnosed new problem with uncertain prognosis? @ -no Drug Therapy requiring intensive monitoring for toxicity (Heparin, Nitro, Insulin, Cardizem)? @ -no Were any procedures done? @ -no Diagnosis/symptom? @ -Fluid overload and CHF with significant respiratory failure Acute, or Chronic, or Acute on Chronic? @ -Acute Uncomplicated (without systemic symptoms) or Complicated (systemic symptoms)? @ -Complicated Side effects of treatment? @ -no Exacerbation, Progression, or Severe Exacerbation? @ -exacerbation Poses a threat to life or bodily function? How? (Chest pain, [place], [place], pneumonia, PE, COPD, DKA, ARF, appy, cholecystitis, CVA, Diverticulitis, Homicidal, Suicidal, threat to staff... and all critical care pts) @ -yes with significant respiratory failure Reevaluation #5: Differential Dyspnea: Coronary syndrome, arrhythmia, tamponade, asthma, COPD, pulmonary embolism, pneumonia, pneumothorax, pulmonary effusion, anaphylaxis, diabetic ketoacidosis, flailed chest, pulmonary contusion, diaphragmatic rupture, anemia, neuromuscular, this is not meant to be an all-inclusive list. - Consultations Consultation #1: Spoke with Dr. Morgan who agrees to admit this patient Medical Decision Making - Medical Decision Making 34 female will be admitted for severe hypertensive emergency with CHF. Fluid overload status on dialysis with respiratory failure and hypoxia - Lab Data Result diagrams: 02/13/24 07:28 02/13/24 07:28 Lab Results 02/05/24 02/05/24 02/05/24 Range/Units 02:16 02:16 02:16 WBC 14.8 H (3.8-10.6) k/uL RBC 2.82 L (3.80-5.40) m/uL Hgb 8.6 L (11.4-16.0) gm/dL Hct 27.5 L (34.0-46.0) % MCV 97.8 (80.0-100.0) fL MCH 30.6 (25.0-35.0) pg MCHC 31.3 (31.0-37.0) g/dL RDW 15.0 (11.5-15.5) % Plt Count 391 (150-450) k/uL MPV 8.2 Neutrophils % (Manual) 60 % Band Neuts % (Manual) 1 % Lymphocytes % (Manual) 13 % Monocytes % (Manual) 6 % Eosinophils % (Manual) 22 % Neutrophils # (Manual) 9.00 H (1.3-7.7) k/uL Lymphocytes # (Manual) 1.92 (1.0-4.8) k/uL Monocytes # (Manual) 0.89 (0-1.0) k/uL Eosinophils # (Manual) 3.26 H (0-0.7) k/uL Nucleated RBCs 0 (0-0) /100 WBC Manual Slide Review Performed Ovalocytes Present PT 10.4 (10.0-12.5) sec INR 0.9 (<1.2) APTT 25.5 (22.0-30.0) sec Sodium 138 (137-145) mmol/L Potassium 5.7 H (3.5-5.1) mmol/L Chloride 98 (98-107) mmol/L Carbon Dioxide 30 (22-30) mmol/L Anion Gap 10 mmol/L BUN 57 H (7-17) mg/dL Creatinine 5.62 H (0.52-1.04) mg/dL Est GFR (CKD-EPI)AfAm 11 (>60 ml/min/1.73 sqM) Est GFR (CKD-EPI)NonAf 9 (>60 ml/min/1.73 sqM) Glucose 172 H (74-99) mg/dL Plasma Lactic Acid Christopher (0.7-2.0) mmol/L Calcium 9.0 (8.4-10.2) mg/dL Magnesium 1.9 (1.6-2.3) mg/dL Total Bilirubin 1.0 (0.2-1.3) mg/dL AST 54 H (14-36) U/L ALT 52 H (4-34) U/L Alkaline Phosphatase 125 (38-126) U/L Troponin I (0.000-0.034) ng/mL NT-Pro-B Natriuret Pep 43754 pg/mL Total Protein 6.7 (6.3-8.2) g/dL Albumin 4.1 (3.5-5.0) g/dL 02/05/24 02/05/24 Range/Units 02:16 02:16 WBC (3.8-10.6) k/uL RBC (3.80-5.40) m/uL Hgb (11.4-16.0) gm/dL Hct (34.0-46.0) % MCV (80.0-100.0) fL MCH (25.0-35.0) pg MCHC (31.0-37.0) g/dL RDW (11.5-15.5) % Plt Count (150-450) k/uL MPV Neutrophils % (Manual) % Band Neuts % (Manual) % Lymphocytes % (Manual) % Monocytes % (Manual) % Eosinophils % (Manual) % Neutrophils # (Manual) (1.3-7.7) k/uL Lymphocytes # (Manual) (1.0-4.8) k/uL Monocytes # (Manual) (0-1.0) k/uL Eosinophils # (Manual) (0-0.7) k/uL Nucleated RBCs (0-0) /100 WBC Manual Slide Review Ovalocytes PT (10.0-12.5) sec INR (<1.2) APTT (22.0-30.0) sec Sodium (137-145) mmol/L Potassium (3.5-5.1) mmol/L Chloride (98-107) mmol/L Carbon Dioxide (22-30) mmol/L Anion Gap mmol/L BUN (7-17) mg/dL Creatinine (0.52-1.04) mg/dL Est GFR (CKD-EPI)AfAm (>60 ml/min/1.73 sqM) Est GFR (CKD-EPI)NonAf (>60 ml/min/1.73 sqM) Glucose (74-99) mg/dL Plasma Lactic Acid Christopher 1.3 (0.7-2.0) mmol/L Calcium (8.4-10.2) mg/dL Magnesium (1.6-2.3) mg/dL Total Bilirubin (0.2-1.3) mg/dL AST (14-36) U/L ALT (4-34) U/L Alkaline Phosphatase (38-126) U/L Troponin I <0.012 (0.000-0.034) ng/mL NT-Pro-B Natriuret Pep pg/mL Total Protein (6.3-8.2) g/dL Albumin (3.5-5.0) g/dL - EKG Data -: EKG Interpreted by Me (EKG is sinus tachycardia 113 [place] 104 QRS 81 QTc 384) - Radiology Data Radiology results: report reviewed (Chest x-ray shows significant pulmonary edema), image reviewed Critical Care Time Critical Care Time: Yes Total Critical Care Time: 31 Disposition Clinical Impression: Renal failure, Hypertensive emergency, Pulmonary edema, Acute respiratory failure, Acute pulmonary edema Disposition: ADMITTED IP TO THIS [facility] Condition: Serious Is patient prescribed a controlled substance at d/c from ED?: No
[2024-02-05] MEDS: IPRATROPIUM-ALBUTEROL 3 ML NEB INHALATION STA (02:22)
[2024-02-05] MEDS: LORazepam 2 MG/ML INJ IV STA (02:24)
[2024-02-05] MEDS: ENALAPRILAT 1.25 MG/ML 1 ML VIAL IVP STA (02:26)
[2024-02-05] MEDS: MORPHINE SULFATE 2 MG/ML SYRINGE IVP STA (02:32)
[2024-02-05] MEDS: SODIUM CHLORIDE 0.9% 1,000 ML IV STA (02:33)
[2024-02-05 02:44] LABS: ALT 52 U/L (4-34); AST 54 U/L (14-36); African American GFR (CKD) 11 (>60 ml/min/1.73 sqM); Albumin 4.1 g/dL (3.5-5.0); Alkaline Phosphatase 125 U/L (38-126); Anion Gap 10 mmol/L; Blood Urea Nitrogen 57 mg/dL (7-17); Carbon Dioxide 30 mmol/L (22-30); Chloride 98 mmol/L (98-107); Glucose 172 mg/dL (74-99); Magnesium 1.9 mg/dL (1.6-2.3); Non-African American GFR(CKD) 9 (>60 ml/min/1.73 sqM); Potassium 5.7 mmol/L (3.5-5.1); Sodium 138 mmol/L (137-145); Total Protein 6.7 g/dL (6.3-8.2)
[2024-02-05 02:47] LABS: HCT 27.5 % (34.0-46.0); HGB 8.6 gm/dL (11.4-16.0); MCH 30.6 pg (25.0-35.0); MCHC 31.3 g/dL (31.0-37.0); MCV 97.8 fL (80.0-100.0); Mean Platelet Volume 8.2; Platelet Count 391 k/uL (150-450); RBC 2.82 m/uL (3.80-5.40); WBC 14.8 k/uL (3.8-10.6)
[2024-02-05 02:50] LABS: INR 0.9 (<1.2); Partial Thromboplastin Time 25.5 sec (22.0-30.0); Prothrombin Time 10.4 sec (10.0-12.5)
[2024-02-05 03:09] LABS: NT-Pro-B-Type Natriuretic Pept 29400 pg/mL
[2024-02-05] MEDS ORDERED: NALOXONE 0.4 MG/ML 1 ML VIAL IV PRN (03:44)
[2024-02-05 03:51] LABS: Band Neutrophils % 1 %; Eosinophils # (M) 3.26 k/uL (0-0.7); Lymphocytes # (M) 1.92 k/uL (1.0-4.8); Monocytes # (M) 0.89 k/uL (0-1.0); Neutrophils % (M) 60 %; Nucleated Red Blood Cells 0 /100 WBC (0-0); Total Cells Counted 200
--- NOTE | 2024-02-05 03:54 | XR ---
EXAMINATION TYPE: XR chest 1V portable DATE OF EXAM: 02/05/2024 COMPARISON: Chest x-ray January 14, 2024 HISTORY: Shortness of breath TECHNIQUE: Single frontal view of the chest is obtained. FINDINGS: Stable large bore right internal jugular dialysis catheter. Increasing bilateral opacities with new small bilateral pleural effusions on current study. The cardiac silhouette size is stable and upper limits of normal. The osseous structures are intact. IMPRESSION: Findings are consistent with more prominent fluid overload state. Correlate clinically.
[2024-02-05 03:55] LABS: Ovalocytes Present
[2024-02-05] MEDS: IPRATROPIUM-ALBUTEROL 3 ML NEB INHALATION PRN (08:06)
--- NOTE | 2024-02-05 08:17 | P.HPIM ---
History of Present Illness H&P Date: 02/05/24 HISTORY OF PRESENT ILLNESS: 34-year-old [address] Sullivan's patient who has been in [facility] for the last 2 months with end-stage renal disease on hemodialysis 3 times a week, history of CVA with blindness in one of her eyes, history of urgent hypertension many times with admission to the hospital, history of complication related to type 1 diabetes including hyper/hypoglycemia, neuropathy, nephropathy, retinopathy, also patient has giving of to a baby a year ago when her kidney function finally become much worse and ended up having to go on dialysis and complication related to. Patient was not hospitalized time in December 27, 2023 shortly after she left [facility] for complicated hospitalization related to her CVA along with her end-stage renal disease on hemodialysis leaving [facility] at the time she made it home and within 24 hours in the [facility] and [facility] with flash pulmonary edema require emergency dialysis with severely urgent hypertension 210/114. The patient was treated and become debilitated afterward require more PT OT and extra help ended up in [facility] for short-term rehab. Has been in [facility] since with multi complication related to. Patient apparently gets rejected from to center in [place] for dialysis for variety of present and continue to go to the dialysis center 5 days a week until this last week when her dialysis will cut down to 3 days a week only and she does dialysis close to 5 hours sometimes. Apparently she called her nurse in [facility] earlier this morning complaining of severe shortness of breath dyspnea and hypoxia not been able to lay down flat and found to have significantly low oxygen level in the 80s with pulse rate in the 110 blood pressure was urgently high above 200 at the time. EMS was called and patient was transferred to the emergency department at [facility] at the time she arrived her blood pressure was 199/ respiration over 20 with pulse oximetry running in the 80s with higher flow oxygen and supportive care brought it up to 99, chest x-ray shows finding consistent with fluid overload and congestive heart failure. EKG showed sinus tachycardia with pulse rate of 113 bpm. Laboratory value with white blood cell 14,000 hemoglobin 8.6 creatinine 5.62 with bun 56 slightly abnormal liver function test proBNP was 29 400. Patient was giving IV Vasotec along with lorazepam and morphine started on nebulizer management settle down with bed. Nephrology were called in for urgent dialysis patient be transferred to the ICU. REVIEW OF SYSTEMS: CONSTITUTIONAL: Well-developed mild respiratory distress, wearing BiPAP. EYES: No icterus sclerae, no conjunctivitis. EARS, NOSE, MOUTH, THROAT, and FACE: No sore throat, lymphadenopathy, carotid bruits or deformity. RESPIRATORY: Positive shortness of breath cough and wheezes. CARDIOVASCULAR: Positive PND orthopnea and palpitation no angina. GASTROINTESTINAL: No Abd pain, Nausea or vomiting, no Diarrhea or constipation, No GI Bleed, no distention or masses. GENITOURINARY: Negative for Hematuria or UTI, no kidney stones. INTEGUMENT/BREAST: Negative for any muscular injury with mild osteoarthritis.. HEMATOLOGIC/LYMPHATIC: Negative for bleed or purpura. MUSCULOSKELTAL: Negative for Myalgia or arthralgia. NEURLOGICAL: No LOC, Sz or syncope, blurred vision dizziness or abnormality.. BEHAVIORAL/PSYCH: Negative. ENDOCRINE: Negative. PHYSICAL EXAMINATION: General Appearance: Alert, cooperative, slightly distressed looks older than her age. Neck HEENT: Supple, no lymphadenopathy, no thyroid enlargement, no carotid bruits. Lungs: Decreased breath sound bilaterally with fine rhonchi positive crackles and wheezes in both lung armendariz. Chest Wall: Decreased expansion with deep inspiration no tenderness and no deformity was found on exam, no costochondral pain or discomfort. Heart: Regular rate and rhythm, S1, S2 positive tachycardia , no murmur, rub or gallop. Back: Symmetric, no curvature, ROM normal, no CVA tenderness. Abdomen: Soft, non-tender, bowel sounds active all four quadrants, no masses, no organomegaly. Extremities: Extremities normal, atraumatic, no cyanosis trace edema. Pulses: 2+ and symmetric. Skin: Skin color, texture, tugor normal, no rashes or lesions. Neurologic: Alert oriented x3 cranial nerves II through XII intact, no motor deficit, no abnormal balance or gait. ASSESSMENT AND PLAN: _Severe dyspnea and shortness of breath with respiratory failure secondary to fluid overload and flash pulmonary edema will require to go for urgent dialysis as soon as possible in the meanwhile continue BiPAP continue IV medication to bring her blood pressure down such as visit tach and if needed clonidine patch. _Flash pulmonary edema: Patient apparently has been on dialysis 5 days a week and recently was changed not clear whether that become a necessity or not the patient be seen nephrology dialysis will be done today hopefully. _Urgent hypertension with a blood pressure running over 200 will resume her home medication between hydralazine 100 mg 3 times a day, Coreg 25 mg twice a day, torsemide 40 mg daily, nifedipine X L 60 mg twice a day. _End-stage renal disease on hemodialysis initially was done 5 days a week and recently was decreased to 3 days a week. Consult nephrology and start hemodialysis. _Type 1 diabetes has been on Levemir 30 units daily along with Accu-Chek with sliding scale coverage titrate dose higher patient will benefit significantly from seen endocrinology. _Congestive heart failure exacerbation not quite sure the patient has cardiomyopathy or not echocardiogram will be ordered and if significant change in ejection fraction will consult cardiology. _Hyperlipidemia: Remain on atorvastatin 40 mg a day. _Anemia: Iron deficiency and chronic in origin most likely dialysis related will continue iron as 40 mg weekly. _Recent history of stroke was related to type 1 diabetes along with urgent hypertension she is not on any antiplatelet agent at this point. _Gastroparesis: Remain on pantoprazole, Zofran and Reglan. Continue medication. _Hypothyroidism: Continue levothyroxine 175 mcg daily. _Seizure: With no seizure activity lately continue Depakote ER 500 mg twice a day. _Chronic pain syndrome: Plain related to lower back pain and recurrent neuropathy pain. Patient can benefit probably from smaller dose of gabapentin in the meanwhile has been using hydrocodone 5/325 mg up to 4 times a day. _GI prophylaxis: Remain on pantoprazole. _DVT prophylaxis: Continue knee-high NAHED hose and early mobilization. CODE STATUS: Full code. Admit patient to the inpatient service for more than 2 night stay. Past Medical History Past Medical History: Diabetes Mellitus, GERD/Reflux, Hypertension, Renal Disease, Seizure Disorder, Thyroid Disorder Additional Past Medical History / Comment(s): Neuropathy, last seizure 2020, gastroparesis, headaches with dialysis, states "fast heart rate" since giving ., receives Hemodialysis Wednesday- and Saturdays at [facility]., right chest hemodialysis catheter., severe HTN. patient awaiting Kidney and Pancrease Transplant. , states sometimes she has had stroke -like symptoms but no stroke., hx of c-diff 2013. History of Any Multi-Drug Resistant Organisms: None Reported Date of last positivie culture/infection: 2013 MDRO Source:: stool Past Surgical History: Adenoidectomy, Section, Cholecystectomy, Orthopedic Surgery, Tonsillectomy Additional Past Surgical History / Comment(s): 2 KNEE SCOPES, EAR TUBES, additional left knee surgery related to fracture, new port a cath sept , eye surgeries for diabetic retinopathy. Past Anesthesia/Blood Transfusion Reactions: Previous Problems w/ Anesthesia Additional Past Anesthesia/Blood Transfusion Reaction / Comment(s): confusion Past Psychological History: Anxiety, Depression Smoking Status: Former smoker Past Alcohol Use History: None Reported Past Drug Use History: Marijuana, Methamphetamine - Past Family History Father Family Medical History: Unable to Obtain Mother Family Medical History: No Reported History Grandfather Additional Family Medical History / Comment(s): Diabetes mellitus type 2 Medications and Allergies Home Medications Medication Instructions Recorded Confirmed Type Aspirin 81 mg PO DAILY #30 tab 08/02/23 12/27/23 Rx Levothyroxine Sodium [Synthroid] 175 mcg PO DAILY 10/22/23 12/27/23 History Sertraline [Zoloft] 200 mg PO DAILY 10/22/23 12/27/23 History Atorvastatin [Lipitor] 40 mg PO HS 12/27/23 12/27/23 History Divalproex ER [Depakote ER] 500 mg PO BID 12/27/23 12/27/23 History Lidocaine 5% Patch [Lidoderm 5% 1 patch TOPICAL BID 12/27/23 12/27/23 History Patch] Ondansetron [Zofran] 4 mg PO Q8HR PRN 12/27/23 12/27/23 History Pantoprazole [Protonix] 40 mg PO DAILY 12/27/23 12/27/23 History [place] Caps 1 cap PO HS 12/27/23 12/27/23 History carvediloL [Coreg] 25 mg PO BID 12/27/23 12/27/23 History hydrALAZINE HCL [Apresoline] 100 mg PO TID 12/27/23 12/27/23 History methocarbamoL [Robaxin-750] 750 mg PO QID 12/27/23 12/27/23 History Darbepoetin Artur [Aranesp] 40 mcg SQ Q7D each 01/14/24 Rx Docusate [Colace] 100 mg PO DAILY cap 01/14/24 Rx HYDROcodone/APAP 5-325MG [[place] 1 tab PO Q6HR PRN 3 Days #10 tab 01/14/24 Rx 5-325] INSULIN ASPART (NovoLOG) [NovoLOG 0 unit SQ ACHS each 01/14/24 Rx (formulary)] INSULIN ASPART (NovoLOG) [NovoLOG 5 unit SQ AC-TID each 01/14/24 Rx (formulary)] Insulin Detemir (Levemir) [Levemir] 30 unit SQ DAILY@1330 each 01/14/24 Rx Metoclopramide [Reglan] 5 mg PO AC-BID tab 01/14/24 Rx NIFEdipine XL [Procardia XL] 60 mg PO BID tab 01/14/24 Rx Torsemide [Demadex] 40 mg PO DAILY tab 01/14/24 Rx Allergies Allergy/AdvReac Type Severity Reaction Status Date / Time hydromorphone HCl Allergy Anaphylaxis Verified 02/05/24 02:12 [From Dilaudid] ibuprofen [From Motrin] Allergy unable to Verified 02/05/24 02:12 take due to kidney disease propoxyphene Allergy Rash/Hives Verified 02/05/24 02:12 [From Darvocet-N] tramadol Allergy Anaphylaxis Verified 02/05/24 02:12 venom-honey bee Allergy passes out Verified 02/05/24 02:12 [bee venom (honey bee)] Physical Exam Vitals: Vital Signs Temp Pulse Resp BP Pulse Ox FiO2 02/05/24 07:10 98.5 F 92 18 157/93 100 02/05/24 06:00 89 20 145/87 100 02/05/24 04:20 85 02/05/24 04:00 91 20 162/98 100 02/05/24 03:41 82 18 146/98 100 02/05/24 03:31 81 20 151/101 100 02/05/24 03:10 81 22 166/113 99 02/05/24 02:40 100 24 179/120 99 02/05/24 02:31 101 H 02/05/24 02:23 100 02/05/24 02:22 107 H 02/05/24 02:15 26 H 02/05/24 02:13 99 02/05/24 02:10 100 02/05/24 02:07 98.4 F 123 H 28 H 199/124 90 L Intake and Output 03/02/05/24 02/05/24 22:59 06:59 14:59 Other: Weight 78.925 kg Results CBC & Chem 7: 02/05/24 02:16 02/05/24 02:16 Labs: Abnormal Lab Results - Last 24 Hours (Table) 02/05/24 02/05/24 Range/Units 02:16 02:16 WBC 14.8 H (3.8-10.6) k/uL RBC 2.82 L (3.80-5.40) m/uL Hgb 8.6 L (11.4-16.0) gm/dL Hct 27.5 L (34.0-46.0) % Neutrophils # (Manual) 9.00 H (1.3-7.7) k/uL Eosinophils # (Manual) 3.26 H (0-0.7) k/uL Potassium 5.7 H (3.5-5.1) mmol/L BUN 57 H (7-17) mg/dL Creatinine 5.62 H (0.52-1.04) mg/dL Glucose 172 H (74-99) mg/dL AST 54 H (14-36) U/L ALT 52 H (4-34) U/L
[2024-02-05] MEDS: ONDANSETRON 4 MG/2 ML VIAL IVP PRN (08:38)
--- NOTE | 2024-02-05 11:13 | P.NPCON ---
History of Present Illness - Reason for Consult end stage renal disease - History of Present Illness Reason for consultation: End-stage renal disease History of present illness: Patient is a 34-year-old female seen in renal consultation for end-stage renal disease. She is maintained on hemodialysis on Wednesday schedule. Patient was receiving hemodialysis 6 times a week and was cut down to 4 times a week this past week as she was having vomiting during dialysis. Her last hemodialysis was on . She was due to go to dialysis today but developed shortness of breath overnight and was brought to the hospital. Chest x-ray suggestive of fluid overload. Patient is currently residing at [facility]. Patient has history of diastolic CHF. Patient also has history of CVA with impa ired vision. There was also concern for optic neuritis for which she was evaluated at [facility] and completed steroids. Blood pressure was elevated on admission but is better controlled now. She is currently on a BiPAP. Mother is present at bedside. Patient has longstanding history of diabetes. Vital signs are stable. General: No acute distress. HEENT: On BiPAP. LUNGS: Scattered rhonchi. HEART: Rate and Rhythm are regular. ABDOMEN: Nontender. EXTREMITITES: Trace edema. Past Medical History Past Medical History: Diabetes Mellitus, GERD/Reflux, Hypertension, Renal Disease, Seizure Disorder, Thyroid Disorder Additional Past Medical History / Comment(s): Neuropathy, last seizure 2020, gastroparesis, headaches with dialysis, states "fast heart rate" since giving ., receives Hemodialysis Wednesday- and Saturdays at [facility]., right chest hemodialysis catheter., severe HTN. patient awaiting Kidney and Pancrease Transplant. , states sometimes she has had stroke -like symptoms but no stroke., hx of c-diff 2013. History of Any Multi-Drug Resistant Organisms: None Reported Date of last positivie culture/infection: 2013 MDRO Source:: stool Past Surgical History: Adenoidectomy, Section, Cholecystectomy, Orthopedic Surgery, Tonsillectomy Additional Past Surgical History / Comment(s): 2 KNEE SCOPES, EAR TUBES, additional left knee surgery related to fracture, new port a cath jul 29, eye surgeries for diabetic retinopathy. Past Anesthesia/Blood Transfusion Reactions: Previous Problems w/ Anesthesia Additional Past Anesthesia/Blood Transfusion Reaction / Comment(s): confusion Past Psychological History: Anxiety, Depression Smoking Status: Former smoker Past Alcohol Use History: None Reported Past Drug Use History: Marijuana, Methamphetamine - Past Family History Father Family Medical History: Unable to Obtain Mother Family Medical History: No Reported History Grandfather Additional Family Medical History / Comment(s): Diabetes mellitus type 2 Medications and Allergies Home Medications Medication Instructions Recorded Confirmed Type Aspirin 81 mg PO DAILY #30 tab 08/02/23 12/27/23 Rx Levothyroxine Sodium [Synthroid] 175 mcg PO DAILY 10/22/23 12/27/23 History Sertraline [Zoloft] 200 mg PO DAILY 10/22/23 12/27/23 History Atorvastatin [Lipitor] 40 mg PO HS 12/27/23 12/27/23 History Divalproex ER [Depakote ER] 500 mg PO BID 12/27/23 12/27/23 History Lidocaine 5% Patch [Lidoderm 5% 1 patch TOPICAL BID 12/27/23 12/27/23 History Patch] Ondansetron [Zofran] 4 mg PO Q8HR PRN 12/27/23 12/27/23 History Pantoprazole [Protonix] 40 mg PO DAILY 12/27/23 12/27/23 History [place] Caps 1 cap PO HS 12/27/23 12/27/23 History carvediloL [Coreg] 25 mg PO BID 12/27/23 12/27/23 History hydrALAZINE HCL [Apresoline] 100 mg PO TID 12/27/23 12/27/23 History methocarbamoL [Robaxin-750] 750 mg PO QID 12/27/23 12/27/23 History Darbepoetin Artur [Aranesp] 40 mcg SQ Q7D each 01/14/24 Rx Docusate [Colace] 100 mg PO DAILY cap 01/14/24 Rx HYDROcodone/APAP 5-325MG [[place] 1 tab PO Q6HR PRN 3 Days #10 tab 01/14/24 Rx 5-325] INSULIN ASPART (NovoLOG) [NovoLOG 0 unit SQ ACHS each 01/14/24 Rx (formulary)] INSULIN ASPART (NovoLOG) [NovoLOG 5 unit SQ AC-TID each 01/14/24 Rx (formulary)] Insulin Detemir (Levemir) [Levemir] 30 unit SQ DAILY@1330 each 01/14/24 Rx Metoclopramide [Reglan] 5 mg PO AC-BID tab 01/14/24 Rx NIFEdipine XL [Procardia XL] 60 mg PO BID tab 01/14/24 Rx Torsemide [Demadex] 40 mg PO DAILY tab 01/14/24 Rx Allergies Allergy/AdvReac Type Severity Reaction Status Date / Time hydromorphone HCl Allergy Anaphylaxis Verified 02/05/24 02:12 [From Dilaudid] ibuprofen [From Motrin] Allergy unable to Verified 02/05/24 02:12 take due to kidney disease propoxyphene Allergy Rash/Hives Verified 02/05/24 02:12 [From Darvocet-N] tramadol Allergy Anaphylaxis Verified 02/05/24 02:12 venom-honey bee Allergy passes out Verified 02/05/24 02:12 [bee venom (honey bee)] Physical Exam Vitals: Vital Signs Temp Pulse Resp BP Pulse Ox FiO2 02/05/24 11:01 70 02/05/24 08:16 94 02/05/24 08:06 92 02/05/24 07:59 19 02/05/24 07:56 85 02/05/24 07:10 98.5 F 92 18 157/93 100 02/05/24 06:00 89 20 145/87 100 02/05/24 04:20 85 02/05/24 04:00 91 20 162/98 100 02/05/24 03:41 82 18 146/98 100 02/05/24 03:31 81 20 151/101 100 02/05/24 03:10 81 22 166/113 99 02/05/24 02:40 100 24 179/120 99 02/05/24 02:31 101 H 02/05/24 02:23 100 02/05/24 02:22 107 H 02/05/24 02:15 26 H 02/05/24 02:13 99 02/05/24 02:10 100 02/05/24 02:07 98.4 F 123 H 28 H 199/124 90 L Intake and Output 02/04/24 02/05/24 02/05/24 22:59 06:59 14:59 Other: Weight 78.925 kg Results - Lab Results Most recent lab results Calcium 9.0 mg/dL (8.4-10.2) 02/05/24 02:16 Magnesium 1.9 mg/dL (1.6-2.3) 02/05/24 02:16 02/05/24 02:16 02/05/24 02:16 Assessment and Plan Plan: Assessment: 1. End-stage renal disease maintained on hemodialysis on Wednesday schedule. 2. Hyperkalemia secondary to chronic kidney disease. 3. Anemia of chronic kidney disease. On Aranesp. 4. Hypertension with chronic kidney disease. 5. Diabetes mellitus type I. 6. Volume overload. 7. Acute hypoxic respiratory failure. On BiPAP. Plan: Hemodialysis today with goal 3 to 4 L ultrafiltration. Maintain torsemide. Check iron studies. Check phosphorus level. Thank you for the consultation. I will continue to follow the patient with you during her hospital stay.
[2024-02-05] MEDS: ASPIRIN 81 MG PO SCH (12:38)
[2024-02-05] MEDS: DOCUSATE 100 MG CAP PO SCH (12:39)
[2024-02-05] MEDS: carvediloL 12.5 MG TAB PO SCH (12:39)
[2024-02-05] MEDS: DIVALPROEX ER 500 MG TAB.ER.24H PO SCH (12:39)
[2024-02-05] MEDS: hydrALAZINE HCL 50 MG TAB PO SCH (12:40)
[2024-02-05] MEDS: methocarbamoL 750 MG TAB PO SCH (12:40)
[2024-02-05] MEDS: LEVOTHYROXINE 88 MCG TAB PO SCH (12:40)
[2024-02-05] MEDS: TORSEMIDE 20 MG TAB PO SCH (12:45)
[2024-02-05] MEDS: SERTRALINE 100 MG TAB PO SCH (12:45)
[2024-02-05] MEDS: PANTOPRAZOLE 40 MG TABLET PO SCH (12:45)
[2024-02-05] MEDS: LIDOCAINE 4% PATCH TOPICAL SCH (12:47)
--- NOTE | 2024-02-05 12:52 | P.CRDCN ---
History of Present Illness History of present illness: HISTORY OF PRESENT ILLNESS: This is a 34-year-old female with a past medical history significant for type 1 diabetes, hypertension, chronic kidney disease on hemodialysis, depression, anx iety, and hyperlipidemia. Patient follows in the office with Dr. Avila. We have been asked to see the patient in consultation for CHF. Patient examined at the bedside in the emergency room. Patient is somewhat lethargic at the time of examination. She is currently on BiPAP. Patient states she came to the hospital secondary to worsening shortness of breath. She states that she has been attending her dialysis as scheduled. She states she is currently getting hemodialysis 4 times a week. She denies any chest pain or pressure. She is currently undergoing hemodialysis at the time of examination with a goal of removal of 4 L. Patient states during her previous dialysis sessions they have been removing less than 3 L but she is unsure of the exact amount. The patient was found to have significantly elevated blood pressures upon arrival to the hospital with a blood pressure 199/24. Blood pressures have improved this morning with a reading of 157/93. DIAGNOSTICS: - EKG reveals sinus tachycardia with no signs of acute ischemia. Heart rate 113.. - Chest xray findings are consistent with more prominent fluid overload state. - Laboratory data: WBC 14.8. Hemoglobin 8.6. Platelet count 391. Sodium 138. Potassium 5.7. AST 54. ALT 52. Troponin negative x 1. proBNP 29,400 - Current home cardiac medication list has not been updated at the time of examination - Most recent echocardiogram obtained in December 2023 revealed ejection fraction 55 to 60%, mild MR, mild TR, and a small pericardial effusion with no tamponade physiology -Patient underwent HAYDER on 12/27/2023 secondary to bacteremia revealing aortic valve is tricuspid with normal function, mitral valve appears to be normal with mild MR, tricuspid valve is normal with no vegetation, the intra-atrial septum is intact. No evidence of PFO. Left atrial appendage is free of clot. Left ventricular ejection fraction 55%, no vegetation noted. Dialysis catheter noted in the right atrium with no vegetation noted on catheter. REVIEW OF SYSTEMS: At the time of my exam: CONSTITUTIONAL: Denies fever or chills. HEENT: Denies blurred vision, vision changes, or eye pain. Denies hemoptysis CARDIOVASCULAR: Denies chest pain. Denies orthopnea. Denies PND. Denies palpitations RESPIRATORY: Denies shortness of breath. GASTROINTESTINAL: Denies abdominal pain. Denies nausea or vomiting. HEMATOLOGIC: Denies bleeding disorders. GENITOURINARY: Denies any blood in urine. SKIN: Denies pruitis. Denies rash. PHYSICAL EXAM: VITAL SIGNS: Reviewed. GENERAL: Well-developed in no acute distress. Pale. HEENT: Head is normocephalic. Pupils are equal, round. Sclerae anicteric. Mucous membranes of the mouth are moist. Neck supple. No JVD or thyromegaly LUNGS: Respirations even and unlabored. Lungs essentially clear to auscultation bilaterally. HEART: Regular rate and rhythm. S1 and S2 heard. ABDOMEN: Soft. Nondistended. Nontender. EXTREMITIES: Normal range of motion. No clubbing or cyanosis. Peripheral pulses intact. Trace bilateral lower extremity edema NEUROLOGIC: Somewhat lethargic. Oriented x 3. ASSESSMENT: Shortness of breath Acute hypoxic respiratory failure requiring BiPAP Acute on chronic heart failure with preserved ejection fraction likely more related to CKD/volume overload Hypertensive urgency End-stage renal disease on hemodialysis Anemia of chronic disease History of hypertension History of hyperlipidemia Type 1 diabetes History of CVA History of seizure Hypothyroidism Chronic pain syndrome PLAN: No need to repeat echocardiogram as this was performed in 12/2023 Resume home cardiac medications Continue to monitor blood pressure Hemodialysis per nephrology Further recommendations pending patient course Nurse practitioner note has been reviewed by physician. Signing provider agrees with the documented findings, assessment, and plan of care documented by [employer] as a scribe. Past Medical History Past Medical History: Diabetes Mellitus, GERD/Reflux, Hypertension, Renal Disease, Seizure Disorder, Thyroid Disorder Additional Past Medical History / Comment(s): Neuropathy, last seizure 2020, gastroparesis, headaches with dialysis, states "fast heart rate" since giving ., receives Hemodialysis Wednesday- and Saturdays at [facility] [place]., right chest hemodialysis catheter., severe HTN. patient awaiting Kidney and Pancrease Transplant. , states sometimes she has had stroke -like symptoms but no stroke., hx of c-diff 2013. History of Any Multi-Drug Resistant Organisms: None Reported Date of last positivie culture/infection: 2013 MDRO Source:: stool Past Surgical History: Adenoidectomy, Section, Cholecystectomy, Orthopedic Surgery, Tonsillectomy Additional Past Surgical History / Comment(s): 2 KNEE SCOPES, EAR TUBES, additional left knee surgery related to fracture, new port a cath sept , eye surgeries for diabetic retinopathy. Past Anesthesia/Blood Transfusion Reactions: Previous Problems w/ Anesthesia Additional Past Anesthesia/Blood Transfusion Reaction / Comment(s): confusion Past Psychological History: Anxiety, Depression Smoking Status: Former smoker Past Alcohol Use History: None Reported Past Drug Use History: Marijuana, Methamphetamine - Past Family History Father Family Medical History: Unable to Obtain Mother Family Medical History: No Reported History Grandfather Additional Family Medical History / Comment(s): Diabetes mellitus type 2 Medications and Allergies Home Medications Medication Instructions Recorded Confirmed Type Aspirin 81 mg PO DAILY #30 tab 08/02/23 12/27/23 Rx Levothyroxine Sodium [Synthroid] 175 mcg PO DAILY 10/22/23 12/27/23 History Sertraline [Zoloft] 200 mg PO DAILY 10/22/23 12/27/23 History Atorvastatin [Lipitor] 40 mg PO HS 12/27/23 12/27/23 History Divalproex ER [Depakote ER] 500 mg PO BID 12/27/23 12/27/23 History Lidocaine 5% Patch [Lidoderm 5% 1 patch TOPICAL BID 12/27/23 12/27/23 History Patch] Ondansetron [Zofran] 4 mg PO Q8HR PRN 12/27/23 12/27/23 History Pantoprazole [Protonix] 40 mg PO DAILY 12/27/23 12/27/23 History [place] Caps 1 cap PO HS 12/27/23 12/27/23 History carvediloL [Coreg] 25 mg PO BID 12/27/23 12/27/23 History hydrALAZINE HCL [Apresoline] 100 mg PO TID 12/27/23 12/27/23 History methocarbamoL [Robaxin-750] 750 mg PO QID 12/27/23 12/27/23 History Darbepoetin Artur [Aranesp] 40 mcg SQ Q7D each 01/14/24 Rx Docusate [Colace] 100 mg PO DAILY cap 01/14/24 Rx HYDROcodone/APAP 5-325MG [[place] 1 tab PO Q6HR PRN 3 Days #10 tab 01/14/24 Rx 5-325] INSULIN ASPART (NovoLOG) [NovoLOG 0 unit SQ ACHS each 01/14/24 Rx (formulary)] INSULIN ASPART (NovoLOG) [NovoLOG 5 unit SQ AC-TID each 01/14/24 Rx (formulary)] Insulin Detemir (Levemir) [Levemir] 30 unit SQ DAILY@1330 each 01/14/24 Rx Metoclopramide [Reglan] 5 mg PO AC-BID tab 01/14/24 Rx NIFEdipine XL [Procardia XL] 60 mg PO BID tab 01/14/24 Rx Torsemide [Demadex] 40 mg PO DAILY tab 01/14/24 Rx Allergies Allergy/AdvReac Type Severity Reaction Status Date / Time hydromorphone HCl Allergy Anaphylaxis Verified 02/05/24 02:12 [From Dilaudid] ibuprofen [From Motrin] Allergy unable to Verified 02/05/24 02:12 take due to kidney disease propoxyphene Allergy Rash/Hives Verified 02/05/24 02:12 [From Darvocet-N] tramadol Allergy Anaphylaxis Verified 02/05/24 02:12 venom-honey bee Allergy passes out Verified 02/05/24 02:12 [bee venom (honey bee)] Physical Exam Vitals: Vital Signs Temp Pulse Resp BP Pulse Ox FiO2 02/05/24 08:16 94 02/05/24 08:06 92 02/05/24 07:59 19 02/05/24 07:56 85 02/05/24 07:10 98.5 F 92 18 157/93 100 02/05/24 06:00 89 20 145/87 100 02/05/24 04:20 85 02/05/24 04:00 91 20 162/98 100 02/05/24 03:41 82 18 146/98 100 02/05/24 03:31 81 20 151/101 100 02/05/24 03:10 81 22 166/113 99 02/05/24 02:40 100 24 179/120 99 02/05/24 02:31 101 H 02/05/24 02:23 100 02/05/24 02:22 107 H 02/05/24 02:15 26 H 02/05/24 02:13 99 02/05/24 02:10 100 02/05/24 02:07 98.4 F 123 H 28 H 199/124 90 L Intake and Output 02/04/24 02/05/24 02/05/24 22:59 06:59 14:59 Other: Weight 78.925 kg Results 02/05/24 02:16 02/05/24 02:16 Cardiac Enzymes 02/05/24 02/05/24 Range/Units 02:16 02:16 AST 54 H (14-36) U/L Troponin I <0.012 (0.000-0.034) ng/mL Coagulation 02/05/24 Range/Units 02:16 PT 10.4 (10.0-12.5) sec APTT 25.5 (22.0-30.0) sec CBC 02/05/24 Range/Units 02:16 WBC 14.8 H (3.8-10.6) k/uL RBC 2.82 L (3.80-5.40) m/uL Hgb 8.6 L (11.4-16.0) gm/dL Hct 27.5 L (34.0-46.0) % Plt Count 391 (150-450) k/uL Comprehensive Metabolic Panel 02/05/24 Range/Units 02:16 Sodium 138 (137-145) mmol/L Potassium 5.7 H (3.5-5.1) mmol/L Chloride 98 (98-107) mmol/L Carbon Dioxide 30 (22-30) mmol/L BUN 57 H (7-17) mg/dL Creatinine 5.62 H (0.52-1.04) mg/dL Glucose 172 H (74-99) mg/dL Calcium 9.0 (8.4-10.2) mg/dL AST 54 H (14-36) U/L ALT 52 H (4-34) U/L Alkaline Phosphatase 125 (38-126) U/L Total Protein 6.7 (6.3-8.2) g/dL Albumin 4.1 (3.5-5.0) g/dL Current Medications Generic Name Dose Route Start Last Admin Trade Name Freq PRN Reason Stop Dose Admin Hydrocodone Bitart/Acetaminophen 1 each 02/05/24 08:17 Hydrocodone/Apap 5-325mg 1 Each Tab PO Q6HR PRN Pain Albuterol/Ipratropium 3 ml 02/05/24 03:44 02/05/24 08:06 Ipratropium-Albuterol 3 Ml Neb INHALATION 3 ml RT-TID PRN Administration Shortness Of Breath Or Wheezing Aspirin 81 mg 02/05/24 09:00 Aspirin 81 Mg PO DAILY [facility] Atorvastatin Calcium 40 mg 02/05/24 21:00 Atorvastatin 40 Mg Tab PO HS [facility] Carvedilol 25 mg 02/05/24 09:00 Carvedilol 12.5 Mg Tab PO BID [facility] Darbepoetin Artur 40 mcg 02/12/24 09:00 Darbepoetin Artur 40 Mcg/0.4 Ml Syringe SQ Q7D [facility] Divalproex Sodium 500 mg 02/05/24 09:00 Divalproex Er 500 Mg Tab.Er.24h PO BID [facility] Docusate Sodium 100 mg 02/05/24 09:00 Docusate 100 Mg Cap PO DAILY [facility] Hydralazine HCl 100 mg 02/05/24 09:00 Hydralazine Hcl 50 Mg Tab PO TID [facility] Sodium Chloride 1,000 mls @ 20 mls/hr 02/05/24 02:13 02/05/24 02:33 Saline 0.9% IV 02/06/24 02:12 20 mls/hr .Q24H STA Administration Insulin Aspart 0 unit 02/05/24 12:30 Insulin Aspart (Novolog) 100 Unit/Ml Vial SQ ACHS [facility] Insulin Aspart 5 unit 02/05/24 12:30 Insulin Aspart (Novolog) 100 Unit/Ml Vial SQ AC-TID [facility] Insulin Detemir 30 unit 02/05/24 13:30 Insulin Detemir (Levemir) 100 Unit/Ml Syr SQ DAILY@1330 [facility] Levothyroxine Sodium 176 mcg 02/05/24 09:00 Levothyroxine 88 Mcg Tab PO DAILY@0630 [facility] Lidocaine 1 patch 02/05/24 09:00 Lidocaine 4% Patch TOPICAL BID [facility] Methocarbamol 750 mg 02/05/24 09:00 Methocarbamol 750 Mg Tab PO QID [facility] Metoclopramide HCl 5 mg 02/05/24 17:30 Metoclopramide 5 Mg Tab PO AC-BID [facility] Multivit/Ca Carb/B Cmplx/FA/Prenat 1 each 02/05/24 21:00 Folic Acid-Vit B Complex-Vit C 1 Cap PO HS [facility] Naloxone HCl 0.2 mg 02/05/24 03:44 Naloxone 0.4 Mg/Ml 1 Ml Vial IV Q2M PRN Opioid Reversal Nifedipine 60 mg 02/05/24 09:00 Nifedipine Xl 60 Mg Tab.Er.24 PO BID [facility] Ondansetron HCl 4 mg 02/05/24 03:44 02/05/24 08:38 Ondansetron 4 Mg/2 Ml Vial IVP 4 mg Q8HR PRN Administration Nausea And Vomiting Ondansetron HCl 4 mg 02/05/24 08:17 Ondansetron 4 Mg Tab PO Q8HR PRN Nausea And Vomiting Pantoprazole Sodium 40 mg 02/05/24 09:00 Pantoprazole 40 Mg Tablet PO DAILY@0730 [facility] Sertraline HCl 200 mg 02/05/24 09:00 Sertraline 100 Mg Tab PO DAILY [facility] Torsemide 40 mg 02/05/24 09:00 Torsemide 20 Mg Tab PO DAILY [facility] Intake and Output 02/04/24 02/05/24 02/05/24 22:59 06:59 14:59 Other: Weight 78.925 kg 02/05/24 02:16 02/05/24 02:16
--- NOTE | 2024-02-05 13:45 | P.CNPUL ---
History of Present Illness Consult date: 02/05/24 Reason for consult: dyspnea History of present illness: This is a 34-year-old female patient with acute hypoxic respiratory failure was being seen in the emergency and the patient is currently on a BiPAP pressure of 14 over 6 cm of water on 05 1260% and the patient's chest x-ray showing acute pulmonary edema and volume overload. She has a right IJ dialysis catheter in place. In the emergency, the patient was lethargic and yet arousable and the patient was undergoing hemodialysis. The goal of ultrafiltration is around 4.5 L. The patient has diabetes mellitus and end-stage renal disease and he has been maintained on hemodialysis 4 times a week. The patient was receiving 6 times a week and this was cut down to 4 times a week and this past week she was having some nausea vomiting. He has also had a recent CVA with impaired vision and some right-sided weakness. He has some optic neuritis and she has been evaluated [facility] treated with steroids. WBC count of 14.8, hemoglobin is at 8.6, normal coagulation profile, BUN is 57 with a creatinine of 5.6 and a sodium level of 138. Troponins are negative. proBNP level is 29,400. Review of Systems CONSTITUTIONAL: Well-developed mild respiratory distress, wearing BiPAP. EYES: No icterus sclerae, no conjunctivitis. EARS, NOSE, MOUTH, THROAT, and FACE: No sore throat, lymphadenopathy, carotid bruits or deformity. RESPIRATORY: Positive shortness of breath cough and wheezes. CARDIOVASCULAR: Positive PND orthopnea and palpitation no angina. GASTROINTESTINAL: No Abd pain, Nausea or vomiting, no Diarrhea or constipation, No GI Bleed, no distention or masses. GENITOURINARY: Negative for Hematuria or UTI, no kidney stones. INTEGUMENT/BREAST: Negative for any muscular injury with mild osteoarthritis.. HEMATOLOGIC/LYMPHATIC: Negative for bleed or purpura. MUSCULOSKELTAL: Negative for Myalgia or arthralgia. NEURLOGICAL: No LOC, Sz or syncope, blurred vision dizziness or abnormality.. BEHAVIORAL/PSYCH: Negative. ENDOCRINE: Negative. Past Medical History Past Medical History: Diabetes Mellitus, GERD/Reflux, Hypertension, Renal Disease, Seizure Disorder, Thyroid Disorder Additional Past Medical History / Comment(s): Neuropathy, last seizure 2020, gastroparesis, headaches with dialysis, states "fast heart rate" since giving ., receives Hemodialysis Wednesday- and Saturdays at [facility] [place]., right chest hemodialysis catheter., severe HTN. patient awaiting Kidney and Pancrease Transplant. , states sometimes she has had stroke -like symptoms but no stroke., hx of c-diff 2013. History of Any Multi-Drug Resistant Organisms: None Reported Date of last positivie culture/infection: 2013 MDRO Source:: stool Past Surgical History: Adenoidectomy, Section, Cholecystectomy, Orthopedic Surgery, Tonsillectomy Additional Past Surgical History / Comment(s): 2 KNEE SCOPES, EAR TUBES, addit ional left knee surgery related to fracture, new port a cath jul 29, eye surgeries for diabetic retinopathy. Past Anesthesia/Blood Transfusion Reactions: Previous Problems w/ Anesthesia Additional Past Anesthesia/Blood Transfusion Reaction / Comment(s): confusion Past Psychological History: Anxiety, Depression Smoking Status: Former smoker Past Alcohol Use History: None Reported Past Drug Use History: Marijuana, Methamphetamine - Past Family History Father Family Medical History: Unable to Obtain Mother Family Medical History: No Reported History Grandfather Additional Family Medical History / Comment(s): Diabetes mellitus type 2 Medications and Allergies Home Medications Medication Instructions Recorded Confirmed Type Levothyroxine Sodium [Synthroid] 175 mcg PO DAILY@0600 10/22/23 02/05/24 History Sertraline [Zoloft] 200 mg PO DAILY@0800 10/22/23 02/05/24 History Atorvastatin [Lipitor] 40 mg PO HS@209912/27/23 02/05/24 History Divalproex ER [Depakote ER] 500 mg PO BID@0600,1700 12/27/23 02/05/24 History Ondansetron [Zofran] 4 mg PO Q8HR PRN 12/27/23 02/05/24 History Pantoprazole [Protonix] 40 mg PO DAILY@0600 12/27/23 02/05/24 History [place] Caps 1 cap PO HS@209912/27/23 02/05/24 History carvediloL [Coreg] 25 mg PO BID@0600,1700 12/27/23 02/05/24 History hydrALAZINE HCL [Apresoline] 100 mg PO TID@0600,1400,2200 12/27/23 02/05/24 History methocarbamoL [Robaxin-750] 750 mg PO QID@06,12,,12/27/23 02/05/24 History Insulin Detemir (Levemir) [Levemir] 30 unit SQ DAILY@1330 each 01/14/24 02/05/24 Rx ALPRAZolam [Xanax] 0.25 mg PO QID PRN 02/05/24 02/05/24 History Aspirin 81 mg PO DAILY@0800 02/05/24 02/05/24 History Docusate [Colace] 100 mg PO DAILY@0800 02/05/24 02/05/24 History HYDROcodone/APAP 5-325MG [[place] 1 tab PO Q8H PRN 02/05/24 02/05/24 History 5-325] Insulin Aspart [NovoLOG Flexpen] 5 units SQ TID@08,12,02/05/24 02/05/24 History Insulin Aspart [NovoLOG Flexpen] See Protocol SQ 02/05/24 02/05/24 History ACHS@07,11,1630,2130 Lidocaine 4% Patch 1 patch TOPICAL DAILY@0800 02/05/24 02/05/24 History Magnesium Hydroxide [Milk of 7,200 mg PO DAILY PRN 02/05/24 02/05/24 History Magnesia Concentrate] Menthol [Biofreeze] 1 applic TOPICAL BID PRN 02/05/24 02/05/24 History Metoclopramide [Reglan] 2.5 mg PO BID@0600,1500 02/05/24 02/05/24 History NIFEdipine XL [Procardia XL] 60 mg PO BID@0800,1700 02/05/24 02/05/24 History Sevelamer [Renvela] 1,600 mg PO AC-TID@07,11,1830 02/05/24 02/05/24 History Torsemide [Demadex] 40 mg PO DAILY@0800 02/05/24 02/05/24 History amLODIPine [Norvasc] 5 mg PO DAILY@0800,1700 PRN 02/05/24 02/05/24 History bisacodyL [Dulcolax] 10 mg RECTAL DAILY PRN 02/05/24 02/05/24 History Allergies Allergy/AdvReac Type Severity Reaction Status Date / Time hydromorphone HCl Allergy Anaphylaxis Verified 02/05/24 13:04 [From Dilaudid] ibuprofen [From Motrin] Allergy unable to Verified 02/05/24 13:04 take due to kidney disease propoxyphene Allergy Rash/Hives Verified 02/05/24 13:04 [From Darvocet-N] tramadol Allergy Anaphylaxis Verified 02/05/24 13:04 venom-honey bee Allergy passes out Verified 02/05/24 13:04 [bee venom (honey bee)] Physical Exam Vitals: Vital Signs Temp Pulse Resp BP Pulse Ox FiO2 02/05/24 11:01 70 02/05/24 08:16 94 02/05/24 08:06 92 02/05/24 07:59 19 02/05/24 07:56 85 02/05/24 07:10 98.5 F 92 18 157/93 100 02/05/24 06:00 89 20 145/87 100 02/05/24 04:20 85 02/05/24 04:00 91 20 162/98 100 02/05/24 03:41 82 18 146/98 100 02/05/24 03:31 81 20 151/101 100 02/05/24 03:10 81 22 166/113 99 02/05/24 02:40 100 24 179/120 99 02/05/24 02:31 101 H 02/05/24 02:23 100 02/05/24 02:22 107 H 02/05/24 02:15 26 H 02/05/24 02:13 99 02/05/24 02:10 100 02/05/24 02:07 98.4 F 123 H 28 H 199/124 90 L Intake and Output 02/04/24 02/05/24 02/05/24 22:59 06:59 14:59 Other: Weight 78.925 kg General Appearance: Lethargic, arousable, maintained on a BiPAP and the patient is tolerating the BiPAP reasonably well at a pressure of 14 over 6 cm of water and FiO2 of 70%. Not using accessory muscles of breathing at this point in time. Neck HEENT: Supple, no lymphadenopathy, no thyroid enlargement, no carotid bruits. The patient has a right IJ hemodialysis catheter in place. Lungs: Decreased breath sound bilaterally with fine rhonchi positive crackles and wheezes in both lung armendariz. Chest Wall: Decreased expansion with deep inspiration no tenderness and no deformity was found on exam, no costochondral pain or discomfort. Heart: Regular rate and rhythm, S1, S2 positive tachycardia , no murmur, rub or gallop. Back: Symmetric, no curvature, ROM normal, no CVA tenderness. Abdomen: Soft, non-tender, bowel sounds active all four quadrants, no masses, no organomegaly. Extremities: Extremities normal, atraumatic, no cyanosis trace edema. Pulses: 2+ and symmetric. Skin: Skin color, texture, tugor normal, no rashes or lesions. Neurologic: Alert oriented x3 cranial nerves II through XII intact, no motor deficit, no abnormal balance or gait.. Patient has motor weakness in the right lower extremity on the right upper extremity and manager advanced in the right arm is weaker compared to the left. Results - Laboratory Findings CBC and BMP: 02/05/24 02:16 02/05/24 02:16 PT/INR, D-dimer PT 10.4 sec (10.0-12.5) 02/05/24 02:16 INR 0.9 (<1.2) 02/05/24 02:16 Abnormal lab findings: Abnormal Labs 02/05/24 02/05/24 02:16 02:16 WBC 14.8 H RBC 2.82 L Hgb 8.6 L Hct 27.5 L Neutrophils # (Manual) 9.00 H Eosinophils # (Manual) 3.26 H Potassium 5.7 H BUN 57 H Creatinine 5.62 H Glucose 172 H AST 54 H ALT 52 H - Diagnostic Findings Chest x-ray: image reviewed Assessment and Plan Plan: Acute hypoxic respiratory failure secondary to massive fluid overload/pulmonary edema. The patient is undergoing emergent hemodialysis. Patient is currently supported with BiPAP at a pressure of 14/6 with an FiO2 of 70% hide chest x-ray is consistent with acute pulmonary edema End-stage renal disease on hemodialysis maintained on hemodialysis 4 times a week Acute hyperkalemia secondary end-stage renal disease with a potassium level of 5.7, undergoing hemodialysis Anemia of chronic disease Diabetes mellitus type 1 Recent history of CVA with some residual right-sided weakness Optic neuritis maintain treated with steroids Plan Transfer this patient to the intensive care unit and the patient will be completing her hemodialysis with a total of 4 L of ultrafiltration. Will wean the BiPAP following her dialysis. The patient will have her electrolytes monitored. Outpatient medications have been resumed. Monitor blood sugar. Monitor the blood pressure. Hemodynamically stable at this point in time and her most recent BP is under adequate control. Based on echocardiogram from previous admissions showed a preserved LV function with a normal ejection fraction and a RVSP of 34 mmHg. Small pericardial effusion.
[2024-02-05 15:12] LABS: Glucose,Whole Blood 267 mg/dL (70-110)
[2024-02-05] MEDS: HYDROcodone/APAP 5-325MG 1 EACH TAB PO PRN (15:21)
[2024-02-05] MEDS: INSULIN ASPART (NovoLOG) 100 UNIT/ML VIAL SQ SCH ×3 (15:41→18:02)
[2024-02-05] MEDS: INSULIN DETEMIR (LEVEMIR) 100 UNIT/ML SYR SQ SCH (15:53)
[2024-02-05 17:43] LABS: Glucose,Whole Blood 277 mg/dL (70-110)
[2024-02-05] MEDS ORDERED: DEXTROSE 50% SYRINGE 50 ML IVP PRN (17:46)
[2024-02-05] MEDS: METOCLOPRAMIDE 5 MG TAB PO SCH ×2 (17:46→18:00)
[2024-02-05 22:56] LABS: Glucose,Whole Blood 160 mg/dL (70-110)
[2024-02-05 23:05] LABS: % Iron Saturation 6.55 (12.00-45.00)
[2024-02-05] MEDS: ATORVASTATIN 40 MG TAB PO SCH (23:06)
[2024-02-05] MEDS: FOLIC ACID-VIT B COMPLEX-VIT C 1 CAP PO SCH (23:07)
[2024-02-06] MEDS: ALPRAZolam 0.25 MG TAB PO PRN (01:08)
[2024-02-06] MEDS: hydrALAZINE HCL 20 MG/ML 1 ML VIAL IVP PRN (05:28)
[2024-02-06] MEDS: LEVOTHYROXINE 100 MCG TAB PO SCH (06:12)
[2024-02-06] MEDS: LEVOTHYROXINE 75 MCG TAB PO SCH (06:12)
[2024-02-06 06:20] LABS: Glucose,Whole Blood 82 mg/dL (70-110)
[2024-02-06] MEDS: SEVELAMER 800 MG TAB PO SCH (07:14)
[2024-02-06] MEDS: bisacodyL 5 MG TABLET.DR PO PRN (10:43)
--- NOTE | 2024-02-06 11:22 | P.PN ---
Subjective Patient is seen in follow-up for end-stage renal disease. She is maintained on hemodialysis on Wednesday schedule. Tolerated 4 L u ltrafiltration yesterday. Now on nasal cannula. Denies chest pain or shortness of breath. Vital signs are stable. General: No acute distress. HEENT: Head exam is unremarkable. On nasal cannula. LUNGS: No audible rhonchi or wheezes. HEART: Rate and Rhythm are regular. ABDOMEN: Nontender. EXTREMITITES: No edema. Objective - Vital Signs Vital signs: Vital Signs Temp 97.9 F 02/06/24 09:00 Pulse 82 02/06/24 09:00 Resp 16 02/06/24 09:00 BP 160/98 02/06/24 09:00 Pulse Ox 99 02/06/24 09:00 FiO2 50 02/06/24 03:33 Intake & Output 02/05/24 02/06/24 02/06/24 18:59 06:59 18:59 Intake Total 400 180 250 Output Total 4400 350 Balance -4000 -170 250 Weight 75.5 kg Intake: IV 10 Invasive Line 1 10 Oral 180 240 Hemodialysis 400 Output: Urine 350 Hemodialysis 4400 Other: Voiding Method Toilet Toilet Bedside Commode Bedside Commode # Voids 1 - Labs CBC & Chem 7: 02/05/24 02:16 02/05/24 02:16 Labs: Abnormal Lab Results - Last 24 Hours (Table) 02/05/24 02/05/24 02/05/24 Range/Units 13:16 15:10 17:41 POC Glucose (mg/dL) 267 H 277 H (70-110) mg/dL Iron 19 L (50-170) UG/DL % Saturation 6.55 L (12.00-45.00) 02/05/24 Range/Units 22:55 POC Glucose (mg/dL) 160 H (70-110) mg/dL Iron (50-170) UG/DL % Saturation (12.00-45.00) Assessment and Plan Plan: Assessment: 1. End-stage renal disease maintained on hemodialysis on Wednesday schedule. 2. Hyperkalemia secondary to chronic kidney disease. Expect improvement postdialysis. 3. Anemia of chronic kidney disease. Iron deficiency noted. 4. Hypertension with chronic kidney disease. 5. Diabetes mellitus type I. 6. Volume overload. Improved with ultrafiltration. 7. Acute hypoxic respiratory failure. Now on nasal cannula. Plan: Hemodialysis tomorrow. Maintain torsemide. Add IV iron. Follow-up phosphorus level.
[2024-02-06 11:38] LABS: Basophils # (A) 0.1 k/uL (0-0.2); Basophils % (A) 1 %; Eosinophils # (A) 1.2 k/uL (0-0.7); Eosinophils % (A) 12 %; HCT 23.3 % (34.0-46.0); HGB 7.3 gm/dL (11.4-16.0); Lymphocytes # (A) 1.5 k/uL (1.0-4.8); Lymphocytes % (A) 15 %; MCH 30.6 pg (25.0-35.0); MCHC 31.6 g/dL (31.0-37.0); MCV 97.1 fL (80.0-100.0); Mean Platelet Volume 8.7; Monocytes # (A) 0.7 k/uL (0-1.0); Monocytes % (A) 7 %; Neutrophils # (A) 6.6 k/uL (1.3-7.7); Neutrophils % (A) 65 %; Platelet Count 319 k/uL (150-450); RBC 2.39 m/uL (3.80-5.40); RDW 15.1 % (11.5-15.5); WBC 10.2 k/uL (3.8-10.6)
[2024-02-06 11:38] LABS: Glucose,Whole Blood 278 mg/dL (70-110)
[2024-02-06 11:55] LABS: ALT 36 U/L (4-34); AST 28 U/L (14-36); African American GFR (CKD) 14 (>60 ml/min/1.73 sqM); Albumin 3.3 g/dL (3.5-5.0); Alkaline Phosphatase 99 U/L (38-126); Anion Gap 15 mmol/L; Blood Urea Nitrogen 52 mg/dL (7-17); Calcium 8.6 mg/dL (8.4-10.2); Carbon Dioxide 22 mmol/L (22-30); Chloride 97 mmol/L (98-107); Glucose 253 mg/dL (74-99); Non-African American GFR(CKD) 12 (>60 ml/min/1.73 sqM); Phosphorus 7.7 mg/dL (2.5-4.5); Potassium 5.3 mmol/L (3.5-5.1); Sodium 134 mmol/L (137-145); Total Bilirubin 0.8 mg/dL (0.2-1.3); Total Protein 5.5 g/dL (6.3-8.2)
--- NOTE | 2024-02-06 12:13 | P.PN ---
Subjective Progress Note Date: 02/06/24 This is a 34-year-old female patient with acute hypoxic respiratory failure was being seen in the emergency and the patient is currently on a BiPAP pressure of 14 over 6 cm of water on 05 1260% and the patient's chest x-ray showing acute pulmonary edema and volume overload. She has a right IJ dialysis catheter in place. In the emergency, the patient was lethargic and yet arousable and the patient was undergoing hemodialysis. The goal of ultrafiltration is around 4.5 L. The patient has diabetes mellitus and end-stage renal disease and he has been maintained on hemodialysis 4 times a week. The patient was receiving 6 times a week and this was cut down to 4 times a week and this past week she was having some nausea vomiting. He has also had a recent CVA with impaired vision and some right-sided weakness. He has some optic neuritis and she has been evaluated [facility] treated with steroids. WBC count of 14.8, hemoglobin is at 8.6, normal coagulation profile, BUN is 57 with a creatinine of 5.6 and a sodium level of 138. Troponins are negative. proBNP level is 29,400. On today's evaluation of 02/06/2024, the patient is a 47 oxygen nasal cannula and the patient was taken off the BiPAP. The patient underwent hemodialysis yesterday with a total of 4.5 L of fluid removed. No significant respiratory distress. He is calm and comfortable. Hemodynamically stable. White cell count is at 10 with a hemoglobin 7.3 and a platelet count of 319. BUN is 52 with a creatinine of 4.5 and a sodium levels at 134 with a potassium level of 5.3. The patient did not require ICU stay. He was transferred to telemetry unit. Objective - Vital Signs Vital signs: Vital Signs Temp 97.9 F 02/06/24 09:00 Pulse 82 02/06/24 09:00 Resp 16 02/06/24 09:00 BP 160/98 02/06/24 09:00 Pulse Ox 99 02/06/24 09:00 FiO2 50 02/06/24 03:33 Intake & Output 02/05/24 02/06/24 02/06/24 18:59 06:59 18:59 Intake Total 400 180 240 Output Total 4400 350 Balance -4000 -170 240 Weight 75.5 kg Intake: Oral 180 240 Hemodialysis 400 Output: Urine 350 Hemodialysis 4400 Other: Voiding Method Toilet Bedside Commode # Voids 1 - Exam General Appearance: Lethargic, arousable, maintained on oxygen at 4 L and the patient is off BiPAP and the patient is awake and alert. Neck HEENT: Supple, no lymphadenopathy, no thyroid enlargement, no carotid bruits. The patient has a right IJ hemodialysis catheter in place. Lungs: Decreased breath sound bilaterally with fine rhonchi positive crackles and wheezes in both lung armendariz. Chest Wall: Decreased expansion with deep inspiration no tenderness and no deformity was found on exam, no costochondral pain or discomfort. Heart: Regular rate and rhythm, S1, S2 positive tachycardia , no murmur, rub or gallop. Back: Symmetric, no curvature, ROM normal, no CVA tenderness. Abdomen: Soft, non-tender, bowel sounds active all four quadrants, no masses, no organomegaly. Extremities: Extremities normal, atraumatic, no cyanosis trace edema. Pulses: 2+ and symmetric. Skin: Skin color, texture, tugor normal, no rashes or lesions. Neurologic: Alert oriented x3 cranial nerves II through XII intact, no motor deficit, no abnormal balance or gait.. 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 - Labs CBC & Chem 7: 02/06/24 11:08 02/06/24 11:08 Labs: Abnormal Lab Results - Last 24 Hours (Table) 02/05/24 02/05/24 02/05/24 Range/Units 13:16 15:10 17:41 POC Glucose (mg/dL) 267 H 277 H (70-110) mg/dL Iron 19 L (50-170) UG/DL % Saturation 6.55 L (12.00-45.00) 02/05/24 Range/Units 22:55 POC Glucose (mg/dL) 160 H (70-110) mg/dL Iron (50-170) UG/DL % Saturation (12.00-45.00) Assessment and Plan Plan: Acute hypoxic respiratory failure secondary to massive fluid overload/pulmonary edema, improved with hemodialysis and the patient is currently off BiPAP on 4 L of O2 nasal cannula End-stage renal disease on hemodialysis maintained on hemodialysis 4 times a week Acute hyperkalemia secondary end-stage renal disease with a potassium level of 5.7, undergoing hemodialysis Anemia of chronic disease Diabetes mellitus type 1 Recent history of CVA with some residual right-sided weakness Optic neuritis maintain treated with steroids Plan Dialysis was completed with a total of 4.5 L of ultrafiltration Patient was taken off the BiPAP and the patient is currently on 4 L of O2 nasal cannula The patient will have her electrolytes monitored. Outpatient medications have been resumed. Monitor blood sugar. Monitor the blood pressure. Hemodynamically stable at this point in time and her most recent BP is under adequate control. Based on echocardiogram from previous admissions showed a preserved LV function with a normal ejection fraction and a RVSP of 34 mmHg. Small pericardial effusion. Another session of hemodialysis to be done tomorrow Given IV iron Given torsemide
--- NOTE | 2024-02-06 12:14 | P.PN ---
Subjective Progress Note Date: 02/06/24 HISTORY OF PRESENT ILLNESS: 34-year-old [address] 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 Patient was not hospitalized time in December 27, 2023 shortly after she left [facility] for complicated hospitalization related to her CVA along with her end-stage renal disease on hemodialysis leaving [facility] at the time she made it home and within 24 hours in the [facility] and [facility] with flash pulmonary edema require emergency dialysis with severely urgent hypertension 210/114. The patient was treated and become debilitated afterward require more PT OT and extra help ended up in [facility] for short-term rehab. Has been in [facility] since with multi complication related to. Patient apparently gets rejected from to center in [place] for dialysis for variety of present and continue to go to the dialysis center 5 days a week until this last week when her dialysis will cut down to 3 days a week only and she does dialysis close to 5 hours sometimes. Apparently she called her nurse in [facility] earlier this morning complaining of severe shortness of breath dyspnea and hypoxia not been able to lay down flat and found to have significantly low oxygen level in the 80s with pulse rate in the 110 blood pressure was urgently high above 200 at the time. EMS was called and patient was transferred to the emergency department at [facility] at the time she arrived her blood pressure was 199/ respiration over 20 with pulse oximetry running in the 80s with higher flow oxygen and supportive care brought it up to 99, chest x-ray shows finding consistent with fluid overload and congestive heart failure. EKG showed sinus tachycardia with pulse rate of 113 bpm. Laboratory value with white blood cell 14,000 hemoglobin 8.6 creatinine 5.62 with bun 56 slightly abnormal liver function test proBNP was 29 400. Patient was giving IV Vasotec along with lorazepam and morphine started on nebulizer management settle down with bed. Nephrology were called in for urgent dialysis patient be transferred to the ICU. 02/06/2024: Following her dialysis her shortness of breath had improved significantly: Patient apparently has been require more dialysis than before not a clear whether this is just her body adjusting with mild more dialysis than expected or she is noncompliant with salt and fluid which make her retain more than expected in short Period of time. Again necessity to see dietitian and gas technician on regular basis also to follow her medication her diet her fluid intake and salt restriction low is expected to be on a more regular basis. Patient be seen Nephrology today no need for dialysis till tomorrow she still apparently scheduled for 3 times a week after this urgent dialysis this time, patient still require O2 at 3 L decreased to 2 L and probably prepare for discharge back to [facility] tomorrow after dialysis with no oxygen. REVIEW OF SYSTEMS: CONSTITUTIONAL: Well-developed mild respiratory distress, wearing BiPAP. EYES: No icterus sclerae, no conjunctivitis. EARS, NOSE, MOUTH, THROAT, and FACE: No sore throat, lymphadenopathy, carotid bruits or deformity. RESPIRATORY: Positive shortness of breath cough and wheezes. CARDIOVASCULAR: Positive PND orthopnea and palpitation no angina. GASTROINTESTINAL: No Abd pain, Nausea or vomiting, no Diarrhea or constipation, No GI Bleed, no distention or masses. GENITOURINARY: Negative for Hematuria or UTI, no kidney stones. INTEGUMENT/BREAST: Negative for any muscular injury with mild osteoarthritis.. HEMATOLOGIC/LYMPHATIC: Negative for bleed or purpura. MUSCULOSKELTAL: Negative for Myalgia or arthralgia. NEURLOGICAL: No LOC, Sz or syncope, blurred vision dizziness or abnormality.. BEHAVIORAL/PSYCH: Negative. ENDOCRINE: Negative. PHYSICAL EXAMINATION: General Appearance: Alert, cooperative, slightly distressed looks older than her age. Neck HEENT: Supple, no lymphadenopathy, no thyroid enlargement, no carotid bruits. Lungs: Decreased breath sound bilaterally with fine rhonchi positive crackles and wheezes in both lung armendariz. Chest Wall: Decreased expansion with deep inspiration no tenderness and no deformity was found on exam, no costochondral pain or discomfort. Heart: Regular rate and rhythm, S1, S2 positive tachycardia , no murmur, rub or gallop. Back: Symmetric, no curvature, ROM normal, no CVA tenderness. Abdomen: Soft, non-tender, bowel sounds active all four quadrants, no masses, no organomegaly. Extremities: Extremities normal, atraumatic, no cyanosis trace edema. Pulses: 2+ and symmetric. Skin: Skin color, texture, tugor normal, no rashes or lesions. Neurologic: Alert oriented x3 cranial nerves II through XII intact, no motor deficit, no abnormal balance or gait. ASSESSMENT AND PLAN: _Severe dyspnea and shortness of breath with respiratory failure secondary to fluid overload and flash pulmonary edema will require to go for urgent dialysis as soon as possible in the meanwhile continue BiPAP continue IV medication to br ing her blood pressure down such as visit tach and if needed clonidine patch. _Flash pulmonary edema: Patient apparently has been on dialysis 5 days a week and recently was changed not clear whether that become a necessity or not the patient be seen nephrology dialysis will be done today hopefully. _Urgent hypertension with a blood pressure running over 200 will resume her home medication between hydralazine 100 mg 3 times a day, Coreg 25 mg twice a day, torsemide 40 mg daily, nifedipine X L 60 mg twice a day. _End-stage renal disease on hemodialysis initially was done 5 days a week and recently was decreased to 3 days a week. Consult nephrology and start hemodialysis. _Type 1 diabetes has been on Levemir 30 units daily along with Accu-Chek with sliding scale coverage titrate dose higher patient will benefit significantly from seen endocrinology. _Congestive heart failure exacerbation not quite sure the patient has cardiomyopathy or not echocardiogram will be ordered and if significant change in ejection fraction will consult cardiology. _Hyperlipidemia: Remain on atorvastatin 40 mg a day. _Anemia: Iron deficiency and chronic in origin most likely dialysis related will continue iron as 40 mg weekly. _Recent history of stroke was related to type 1 diabetes along with urgent hypertension she is not on any antiplatelet agent at this point. _Gastroparesis: Remain on pantoprazole, Zofran and Reglan. Continue medication. _Hypothyroidism: Continue levothyroxine 175 mcg daily. _Seizure: With no seizure activity lately continue Depakote ER 500 mg twice a day. _Chronic pain syndrome: Plain related to lower back pain and recurrent neuropathy pain. Patient can benefit probably from smaller dose of gabapentin in the meanwhile has been using hydrocodone 5/325 mg up to 4 times a day. Symptoms improved significantly after dialysis she is not on BiPAP anymore she is requiring less oxygen, patient is more compliant with fluid and salt restriction, continue current medication, readjusted her dialysis time hopefully patient will have dialysis will be going back to [facility] tomorrow. Objective - Vital Signs Vital signs: Vital Signs Temp 98.0 F 02/06/24 05:00 Pulse 96 02/06/24 07:51 Resp 18 02/06/24 05:00 BP 173/104 02/06/24 05:00 Pulse Ox 98 02/06/24 07:51 FiO2 50 02/06/24 03:33 Intake & Output 02/05/24 02/06/24 02/06/24 18:59 06:59 18:59 Intake Total 400 180 Output Total 4400 350 Balance -4000 -170 Weight 75.5 kg Intake: Oral 180 Hemodialysis 400 Output: Urine 350 Hemodialysis 4400 Other: Voiding Method Toilet Bedside Commode # Voids 1 - Labs CBC & Chem 7: 02/06/24 11:08 02/06/24 11:08 Labs: Abnormal Lab Results - Last 24 Hours (Table) 02/05/24 02/05/24 02/05/24 Range/Units 13:16 15:10 17:41 POC Glucose (mg/dL) 267 H 277 H (70-110) mg/dL Iron 19 L (50-170) UG/DL % Saturation 6.55 L (12.00-45.00) 02/05/24 Range/Units 22:55 POC Glucose (mg/dL) 160 H (70-110) mg/dL Iron (50-170) UG/DL % Saturation (12.00-45.00)
--- NOTE | 2024-02-06 13:54 | P.PN ---
Subjective Progress Note Date: 02/06/24 HISTORY OF PRESENT ILLNESS: This is a 34-year-old female with a past medical history significant for type 1 diabetes, hypertension, chronic kidney disease on hemodialysis, depression, anxiety, and hyperlipidemia. Patient follows in the office with Dr. Avila. We have been asked to see the patient in consultation for CHF. Patient examined at the bedside in the emergency room. Patient is somewhat lethargic at the time of examination. She is currently on BiPAP. Patient states she came to the hosp ital secondary to worsening shortness of breath. She states that she has been attending her dialysis as scheduled. She states she is currently getting hemodialysis 4 times a week. She denies any chest pain or pressure. She is currently undergoing hemodialysis at the time of examination with a goal of removal of 4 L. Patient states during her previous dialysis sessions they have been removing less than 3 L but she is unsure of the exact amount. The patient was found to have significantly elevated blood pressures upon arrival to the hospital with a blood pressure 199/24. DIAGNOSTICS: - EKG reveals sinus tachycardia with no signs of acute ischemia. Heart rate 113.. - Chest xray findings are consistent with more prominent fluid overload state. - Laboratory data: WBC 14.8. Hemoglobin 8.6. Platelet count 391. Sodium 138. Potassium 5.7. AST 54. ALT 52. Troponin negative x 1. proBNP 29,400 - Current home cardiac medication list has not been updated at the time of examination - Most recent echocardiogram obtained in December 2023 revealed ejection fraction 55 to 60%, mild MR, mild TR, and a small pericardial effusion with no tamponade physiology -Patient underwent HAYDER on 12/27/2023 secondary to bacteremia revealing aortic valve is tricuspid with normal function, mitral valve appears to be normal with mild MR, tricuspid valve is normal with no vegetation, the intra-atrial septum is intact. No evidence of PFO. Left atrial appendage is free of clot. Left ventricular ejection fraction 55%, no vegetation noted. Dialysis catheter noted in the right atrium with no vegetation noted on catheter. 02/06/2024 Had dialysis yesterday and was able to get 4L off. She is still having shortness of breath but this is improved, feels "air hunger". Feels chest pressure constant, same as yesterday, pain with deep breathing. Hgb 7.3, K+ 5.3. Blood pressure not well controlled. PHYSICAL EXAM: VITAL SIGNS: Reviewed. GENERAL: Well-developed in no acute distress. Pale. HEENT: Head is normocephalic. Pupils are equal, round. Sclerae anicteric. Mucous membranes of the mouth are moist. Neck supple. LUNGS: Respirations even and unlabored. Lungs essentially clear to auscultation bilaterally, on NC O2. HEART: Regular rate and rhythm. S1 and S2 heard. ABDOMEN: Soft. Nondistended. Nontender. EXTREMITIES: Normal range of motion. No clubbing or cyanosis. Peripheral pulses intact. Trace bilateral lower extremity edema NEUROLOGIC: Somewhat lethargic. Oriented x 3. ASSESSMENT: Shortness of breath Acute hypoxic respiratory failure was requiring BiPAP Acute on chronic heart failure with preserved ejection fraction likely more related to CKD/volume overload Hypertensive urgency End-stage renal disease on hemodialysis Anemia of chronic disease History of hypertension History of hyperlipidemia Type 1 diabetes History of CVA History of seizure Hypothyroidism Chronic pain syndrome PLAN: No need to repeat echocardiogram as this was performed in 12/2023. Resume home ca rdiac medications. Blood pressure remains elevated, needs better control will start by adding imdur and may consider adding minoxidil or losartan. Hemodialysis per nephrology. Further recommendations pending patient course. Nurse practitioner note has been reviewed by physician. Signing provider agrees with the documented findings, assessment, and plan of care documented by [facility]IRY [facility] TECHNICIAN as a scribe. Objective - Vital Signs Vital signs: Vital Signs Temp 97.9 F 02/06/24 09:00 Pulse 82 02/06/24 09:00 Resp 16 02/06/24 09:00 BP 160/98 02/06/24 09:00 Pulse Ox 99 02/06/24 09:00 FiO2 50 02/06/24 03:33 Intake & Output 02/05/24 02/06/24 02/06/24 18:59 06:59 18:59 Intake Total 400 180 250 Output Total 4400 350 Balance -4000 -170 250 Weight 75.5 kg Intake: IV 10 Invasive Line 1 10 Oral 180 240 Hemodialysis 400 Output: Urine 350 Hemodialysis 4400 Other: Voiding Method Toilet Toilet Bedside Commode Bedside Commode # Voids 1 - Labs CBC & Chem 7: 02/06/24 11:08 02/06/24 11:08 Labs: Abnormal Lab Results - Last 24 Hours (Table) 02/05/24 02/05/24 02/05/24 Range/Units 13:16 15:10 17:41 RBC (3.80-5.40) m/uL Hgb (11.4-16.0) gm/dL Hct (34.0-46.0) % Eosinophils # (0-0.7) k/uL Sodium (137-145) mmol/L Potassium (3.5-5.1) mmol/L Chloride (98-107) mmol/L BUN (7-17) mg/dL Creatinine (0.52-1.04) mg/dL Glucose (74-99) mg/dL POC Glucose (mg/dL) 267 H 277 H (70-110) mg/dL Phosphorus (2.5-4.5) mg/dL Iron 19 L (50-170) UG/DL % Saturation 6.55 L (12.00-45.00) ALT (4-34) U/L Total Protein (6.3-8.2) g/dL Albumin (3.5-5.0) g/dL 02/05/24 02/06/24 02/06/24 Range/Units 22:55 11:08 11:08 RBC 2.39 L (3.80-5.40) m/uL Hgb 7.3 L (11.4-16.0) gm/dL Hct 23.3 L (34.0-46.0) % Eosinophils # 1.2 H (0-0.7) k/uL Sodium 134 L (137-145) mmol/L Potassium 5.3 H (3.5-5.1) mmol/L Chloride 97 L (98-107) mmol/L BUN 52 H (7-17) mg/dL Creatinine 4.52 H (0.52-1.04) mg/dL Glucose 253 H (74-99) mg/dL POC Glucose (mg/dL) 160 H (70-110) mg/dL Phosphorus 7.7 H (2.5-4.5) mg/dL Iron (50-170) UG/DL % Saturation (12.00-45.00) ALT 36 H (4-34) U/L Total Protein 5.5 L (6.3-8.2) g/dL Albumin 3.3 L (3.5-5.0) g/dL 02/06/24 Range/Units 11:37 RBC (3.80-5.40) m/uL Hgb (11.4-16.0) gm/dL Hct (34.0-46.0) % Eosinophils # (0-0.7) k/uL Sodium (137-145) mmol/L Potassium (3.5-5.1) mmol/L Chloride (98-107) mmol/L BUN (7-17) mg/dL Creatinine (0.52-1.04) mg/dL Glucose (74-99) mg/dL POC Glucose (mg/dL) 278 H (70-110) mg/dL Phosphorus (2.5-4.5) mg/dL Iron (50-170) UG/DL % Saturation (12.00-45.00) ALT (4-34) U/L Total Protein (6.3-8.2) g/dL Albumin (3.5-5.0) g/dL
--- NOTE | 2024-02-06 15:00 | CA ---
Transthoracic Echo Report Name: Marita Perrin Age: 34 Gender: F : 1990 Exam Date: 02/06/2024 10:52 Exam Location: [place] [facility] Ht (in): 66 Wt (lb): 174 Ordering Physician: Jason Morgan MD Attending/Referring Phys: Huc Ob Randa Parada RDCS Procedure CPT: Indications: lvfunction Cardiac Hx: Technical Quality: Contrast 1: Total Dose (mL): Contrast 2: Total Dose (mL): MEASUREMENTS (Male / Female) Normal Values 2D ECHO LV Diastolic Diameter PLAX 4.1 cm 4.2 - 5.9 / 3.9 - 5.3 cm LV Systolic Diameter PLAX 2.8 cm IVS Diastolic Thickness 1.3 cm 0.6 - 1.0 / 0.6 - 0.9 cm LVPW Diastolic Thickness 1.1 cm 0.6 - 1.0 / 0.6 - 0.9 cm LV Relative Wall Thickness 0.6 FINDINGS Left Ventricle Left ventricular ejection fraction is estimated at 55-60 %. Right Ventricle Right Atrium Left Atrium Mitral Valve Aortic Valve Tricuspid Valve Pulmonic Valve Pericardium Small pericardial effusion. Aorta CONCLUSIONS Limited study, previous echo recorded on 12/28/2023. Left ventricular ejection fraction 55-60% Small pericardial effusion with no tamponade physiology Previewed by: Dr. Azeem Avila DO (Electronically Signed) Final Date: 06 February 2024 14:59
[2024-02-06 16:15] LABS: Glucose,Whole Blood 255 mg/dL (70-110)
[2024-02-06] MEDS: SODIUM FERRIC GLUCONAT-SUCROSE 125 MG in SODIUM CHLORIDE 0.9% 100 ML IVPB SCH (17:02)
[2024-02-06] MEDS: ISOSORBIDE MONONITRATE ER 30 MG TAB.ER.24H PO SCH (17:02)
[2024-02-06] MEDS: ONDANSETRON 4 MG TAB PO PRN (18:12)
[2024-02-06 20:25] LABS: Glucose,Whole Blood 142 mg/dL (70-110)
[2024-02-07 06:11] LABS: Glucose,Whole Blood 309 mg/dL (70-110)
[2024-02-07] MEDS: polyethylene glycoL 3350 17 GM POWD.PACK PO SCH (10:15)
[2024-02-07 11:59] LABS: Glucose,Whole Blood 378 mg/dL (70-110)
--- NOTE | 2024-02-07 12:05 | P.PN ---
Subjective Patient is seen in follow-up for end-stage renal disease. She is maintained on hemodialysis on Wednesday schedule. Scheduled to receive dialysis today and again tomorrow. On nasal cannula. Denies chest pain or shortness of breath. Vomiting this morning. Vital signs are stable. General: No acute distress. HEENT: Head exam is unremarkable. On nasal cannula. LUNGS: No audible rhonchi or wheezes. HEART: Rate and Rhythm are regular. ABDOMEN: Nontender. EXTREMITITES: No edema. Objective - Vital Signs Vital signs: Vital Signs Temp 98.1 F 02/07/24 08:00 Pulse 99 02/07/24 08:00 Resp 16 02/07/24 08:00 BP 178/97 02/07/24 08:00 Pulse Ox 99 02/07/24 08:00 FiO2 50 02/06/24 03:33 Intake & Output 02/06/24 02/07/24 02/07/24 18:59 06:59 18:59 Intake Total 740 247 100 Output Total 0 450 700 Balance 740 -203 -600 Weight 76 kg Intake: IV 20 10 Invasive Line 1 20 10 Intake, IV Titration 100 Amount Sodium Ferric Gluconat- 100 Sucrose 125 mg In Sodium Chloride 0.9% 100 ml @ 100 mls/hr IVPB DAILY [facility] Rx#:[id number] Oral 720 237 Output: Gastric Drainage 0 Urine 0 Stool 0 Urine/Stool Mix 0 Emesis 0 450 700 Oral Regurgitation 0 Other 0 Other: Voiding Method Toilet Toilet Toilet Bedside Commode Bedside Commode Bedside Commode # Voids 1 1 # Bowel Movements 1 1 3 - Labs CBC & Chem 7: 02/06/24 11:08 02/06/24 11:08 Labs: Abnormal Lab Results - Last 24 Hours (Table) 02/06/24 02/06/24 02/07/24 Range/Units 16:13 20:24 06:10 POC Glucose (mg/dL) 255 H 142 H 309 H (70-110) mg/dL 02/07/24 Range/Units 11:58 POC Glucose (mg/dL) 378 H (70-110) mg/dL Microbiology - Last 24 Hours (Table) 02/05/24 17:24 Blood Culture - Preliminary Blood Assessment and Plan Plan: Assessment: 1. End-stage renal disease maintained on hemodialysis on Wednesday schedule. 2. Hyperkalemia secondary to chronic kidney disease. Improved postdialysis. 3. Anemia of chronic kidney disease. Iron deficiency noted. 4. Hypertension with chronic kidney disease. Exacerbated by vomiting. 5. Diabetes mellitus type I. 6. Volume overload. Improved with ultrafiltration. 7. Acute hypoxic respiratory failure. On nasal cannula. 8. Chronic kidney disease mineral bone disease. Phosphorus level 7.7 dated Jan. On Renvela. Plan: Hemodialysis today and tomorrow. Maintain torsemide. Maintain IV iron. Add Aranesp. Avoid BRI/ARB due to tendency for hyperkalemia.
[2024-02-07] MEDS: METOCLOPRAMIDE 5 MG/ML 2 ML VIAL IVP STA (13:14)
[2024-02-07] MEDS: cloNIDine 0.3 MG/24HR PATCH TRANSDERM SCH (14:56)
[2024-02-07] MEDS: DARBEPOETIN ALFA 40 MCG/0.4 ML SYRINGE SQ SCH (14:56)
--- NOTE | 2024-02-07 16:06 | P.PN ---
Subjective Progress Note Date: 02/07/24 Principal diagnosis: Acute hypoxic respiratory failure secondary to fluid overload/pulmonary edema/renal failure This is a 34-year-old female patient with acute hypoxic respiratory failure was being seen in the emergency and the patient is currently on a BiPAP pressure of 14 over 6 cm of water on 05 1260% and the patient's chest x-ray showing acute pulmonary edema and volume overload. She has a right IJ dialysis catheter in place. In the emergency, the patient was lethargic and yet arousable and the patient was undergoing hemodialysis. The goal of ultrafiltration is around 4.5 L. The patient has diabetes mellitus and end-stage renal disease and he has been maintained on hemodialysis 4 times a week. The patient was receiving 6 times a week and this was cut down to 4 times a week and this past week she was having some nausea vomiting. He has also had a recent CVA with impaired vision and some right-sided weakness. He has some optic neuritis and she has been e valuated [facility] treated with steroids. WBC count of 14.8, hemoglobin is at 8.6, normal coagulation profile, BUN is 57 with a creatinine of 5.6 and a sodium level of 138. Troponins are negative. proBNP level is 29,400. On today's evaluation of 02/06/2024, the patient is a 47 oxygen nasal cannula and the patient was taken off the BiPAP. The patient underwent hemodialysis yesterday with a total of 4.5 L of fluid removed. No significant respiratory distress. He is calm and comfortable. Hemodynamically stable. White cell count is at 10 with a hemoglobin 7.3 and a platelet count of 319. BUN is 52 with a creatinine of 4.5 and a sodium levels at 134 with a potassium level of 5 .3. The patient did not require ICU stay. He was transferred to telemetry unit. Patient was reevaluated today on 02/07/2024, remains on 4 L nasal cannula, O2 sats 98%, patient is scheduled to have hemodialysis again today. And in the meantime her chest x-ray continues to show evidence of pulmonary edema, patient seems to be calm, not in distress, but she seems to be chronically ill. WBC count is 10.2 hemoglobin 7.3. Potassium is 5.3 BUN is 52 creatinine 4.52 her last chest x-ray from 2 days ago showed evidence of pulmonary edema Objective - Vital Signs Vital signs: Vital Signs Temp 98.1 F 02/07/24 12:00 Pulse 113 H 02/07/24 12:00 Resp 16 02/07/24 12:00 BP 180/90 02/07/24 12:00 Pulse Ox 98 02/07/24 12:00 FiO2 50 02/06/24 03:33 Intake & Output 02/06/24 02/07/24 02/07/24 18:59 06:59 18:59 Intake Total 740 247 100 Output Total 0 450 700 Balance 740 -203 -600 Weight 76 kg Intake: IV 20 10 Invasive Line 1 20 10 Intake, IV Titration 100 Amount Sodium Ferric Gluconat- 100 Sucrose 125 mg In Sodium Chloride 0.9% 100 ml @ 100 mls/hr IVPB DAILY [facility] Rx#:[id number] Oral 720 237 Output: Gastric Drainage 0 Urine 0 Stool 0 Urine/Stool Mix 0 Emesis 0 450 700 Oral Regurgitation 0 Other 0 Other: Voiding Method Toilet Toilet Toilet Bedside Commode Bedside Commode Bedside Commode # Voids 1 1 # Bowel Movements 1 1 3 - Exam General: The patient is awake and alert, on 4 L nasal cannula Skin: Skin is warm and dry and no rashes or lesions are noted. Eye: Pupils are equal, round and reactive to light, extra-ocular movements are intact; there is normal conjunctiva bilaterally. Ears, nose, mouth and throat: There are moist mucous membranes and no oral lesions. Neck: The neck is supple, there is no tenderness or JVD. Cardiovascular: There is a regular rate and rhythm. No murmur, rub or gallop is appreciated. Respiratory: Crackles at the bases bilaterally Gastrointestinal: Soft, non-distended, non-tender abdomen without masses or organomegaly noted. There is no rebound or guarding present. Bowel sounds are unremarkable. Back: There is no tenderness to palpation in the midline. There is no obvious deformity. Musculoskeletal: Normal ROM, no tenderness, There is no pedal edema. There is n o calf tenderness or swelling. No cords were appreciated. Neurological: CN II-XII intact, Cranial nerves III through XII are intact. There are no obvious motor or sensory deficits. Coordination appears grossly intact. Speech is normal. Psychiatric: Cooperative, appropriate mood & affect, normal judgment. - Labs CBC & Chem 7: 02/06/24 11:08 02/06/24 11:08 Labs: Abnormal Lab Results - Last 24 Hours (Table) 02/06/24 02/06/24 02/07/24 Range/Units 16:13 20:24 06:10 POC Glucose (mg/dL) 255 H 142 H 309 H (70-110) mg/dL 02/07/24 Range/Units 11:58 POC Glucose (mg/dL) 378 H (70-110) mg/dL Microbiology - Last 24 Hours (Table) 02/05/24 17:24 Blood Culture - Preliminary Blood Assessment and Plan Assessment: impression: acute hypoxic respiratory failure secondary to massive fluid overload/pulmonary edema, improving with hemodialysis End-stage renal disease on hemodialysis maintained on hemodialysis 4 times a week Acute hyperkalemia secondary end-stage renal disease Anemia of chronic disease Diabetes mellitus type 1 Recent history of CVA with some residual right-sided weakness Optic neuritis maintain treated with steroids Recommendation: Continue ultrafiltration/hemodialysis Titrate oxygen accordingly Repeat chest x-ray in a.m. Continue diuretics Will continue to follow Continue IV iron Time with Patient: Less than 30
[2024-02-07 16:19] LABS: Glucose,Whole Blood 250 mg/dL (70-110)
[2024-02-07 20:21] LABS: Glucose,Whole Blood 94 mg/dL (70-110)
[2024-02-07] MEDS: ENALAPRILAT 1.25 MG/ML 1 ML VIAL IVP STA (21:51)
[2024-02-07] MEDS: MORPHINE SULFATE 2 MG/ML SYRINGE IVP PRN (22:15)
[2024-02-07] MEDS: ACETAMINOPHEN IV (For NPO) 1,000 MG in EMPTY BAG 1 BAG IVPB PRN (22:19)
--- NOTE | 2024-02-07 22:19 | XR ---
EXAMINATION TYPE: XR chest 1V portable DATE OF EXAM: 02/07/2024 CLINICAL HISTORY: Fever, rule out infection TECHNIQUE: Single AP portable frontal upright view of the chest is obtained. COMPARISON: Chest x-ray 2 days earlier. FINDINGS: Stable large bore right internal jugular dialysis catheter. Improved central bilateral inc reased opacities. Persist and slightly more focal right basilar opacity. Stable mild cardiomegaly The osseous structures are intact. IMPRESSION: Improving bilateral central edema. Persistent right basilar acute infiltrate and/or atele ctasis.
[2024-02-07 22:54] LABS: Appearance,Urine Clear (Clear); Bacteria,Urine Rare /hpf; Bilirubin,Urine Negative (Negative); Blood,Urine Trace (Negative); Color,Urine Colorless; Glucose,Urine (UA) 2+ (Negative); Hyaline Casts,Urine 1 /lpf (0-2); Ketones,Urine Negative (Negative); Leukocyte Esterase,Urine Negative (Negative); Mucus,Urine Rare /hpf; Nitrite,Urine Negative (Negative); PH, Urine 8.5 (5.0-8.0); Protein,Urine 3+ (Negative); RBC,Urine 7 /hpf (0-5); Specific Gravity,Urine 1.013 (1.001-1.035); Squamous Epithelial Cell,Urine 1 /hpf (0-4); Urobilinogen,Urine <2.0 mg/dL (<2.0); WBC,Urine 3 /hpf (0-5)
--- NOTE | 2024-02-07 23:00 | P.PN ---
Subjective Progress Note Date: 02/07/24 HISTORY OF PRESENT ILLNESS: 34-year-old [address] 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 Patient was not hospitalized time in December 27, 2023 shortly after she left [facility] for complicated hospitalization related to her CVA along with her end-stage renal disease on hemodialysis leaving [facility] at the time she made it home and within 24 hours in the [facility] and [facility] with flash pulmonary edema require emergency dialysis with severely urgent hypertension 210/114. The patient was treated and become debilitated afterward require more PT OT and extra help ended up in [facility] for short-term rehab. Has been in [facility] since with multi complication related to. Patient apparently gets rejected from to center in [place] for dialysis for variety of present and continue to go to the dialysis center 5 days a week until this last week when her dialysis will cut down to 3 days a week only and she does dialysis close to 5 hours sometimes. Apparently she called her nurse in [facility] earlier this morning complaining of severe shortness of breath dyspnea and hypoxia not been able to lay down flat and found to have significantly low oxygen level in the 80s with pulse rate in the 110 blood pressure was urgently high above 200 at the time. EMS was called and patient was transferred to the emergency department at [facility] at the time she arrived her blood pressure was 199/ respiration over 20 with pulse oximetry running in the 80s with higher flow oxygen and supportive care brought it up to 99, chest x-ray shows finding consistent with fluid overload and congestive heart failure. EKG showed sinus tachycardia with pulse rate of 113 bpm. Laboratory value with white blood cell 14,000 hemoglobin 8.6 creatinine 5.62 with bun 56 slightly abnormal liver function test proBNP was 29 400. Patient was giving IV Vasotec along with lorazepam and morphine started on nebulizer management settle down with bed. Nephrology were called in for urgent dialysis patient be transferred to the ICU. 02/06/2024: Following her dialysis her shortness of breath had improved significantly: Patient apparently has been require more dialysis than before not a clear whether this is just her body adjusting with mild more dialysis than expected or she is noncompliant with salt and fluid which make her retain more than expected in short Period of time. Again necessity to see dietitian and maintenance painter apprentice on regular basis also to follow her medication her diet her fluid intake and salt restriction low is expected to be on a more regular basis. Patient be seen Nephrology today no need for dialysis till tomorrow she still apparently scheduled for 3 times a week after this urgent dialysis this time, patient still require O2 at 3 L decreased to 2 L and probably prepare for discharge back to [facility] tomorrow after dialysis with no oxygen. 02/07/2024: The patient is more symptomatic today with Gastrointestinal symptoms including significant nausea not been able to tolerate any food or fluid, still on 4 L of O2 to keep her pulse ox at 98 percentile, she was on BiPAP through the night all night long, her hemoglobin is 7.3 with creatinine at 4.5 to. Chest x- ray does not show any evidence of pulmonary edema the patient still have the extreme high sensitivity for fluid overload and pulmonary edema require dialysis more often. REVIEW OF SYSTEMS: CONSTITUTIONAL: Well-developed mild respiratory distress, wearing BiPAP. EYES: No icterus sclerae, no conjunctivitis. EARS, NOSE, MOUTH, THROAT, and FACE: No sore throat, lymphadenopathy, carotid bruits or deformity. RESPIRATORY: Positive shortness of breath cough and wheezes. CARDIOVASCULAR: Positive PND orthopnea and palpitation no angina. GASTROINTESTINAL: No Abd pain, Nausea or vomiting, no Diarrhea or constipation, No GI Bleed, no distention or masses. GENITOURINARY: Negative for Hematuria or UTI, no kidney stones. INTEGUMENT/BREAST: Negative for any muscular injury with mild osteoarthritis.. HEMATOLOGIC/LYMPHATIC: Negative for bleed or purpura. MUSCULOSKELTAL: Negative for Myalgia or arthralgia. NEURLOGICAL: No LOC, Sz or syncope, blurred vision dizziness or abnormality.. BEHAVIORAL/PSYCH: Negative. ENDOCRINE: Negative. PHYSICAL EXAMINATION: General Appearance: Alert, cooperative, slightly distressed looks older than her age. Neck HEENT: Supple, no lymphadenopathy, no thyroid enlargement, no carotid bruits. Lungs: Decreased breath sound bilaterally with fine rhonchi positive crackles and wheezes in both lung armendariz. Chest Wall: Decreased expansion with deep inspiration no tenderness and no deformity was found on exam, no costochondral pain or discomfort. Heart: Regular rate and rhythm, S1, S2 positive tachycardia , no murmur, rub or gallop. Back: Symmetric, no curvature, ROM normal, no CVA tenderness. Abdomen: Soft, non-tender, bowel sounds active all four quadrants, no masses, no organomegaly. Extremities: Extremities normal, atraumatic, no cyanosis trace edema. Pulses: 2+ and symmetric. Skin: Skin color, texture, tugor normal, no rashes or lesions. Neurologic: Alert oriented x3 cranial nerves II through XII intact, no motor deficit, no abnormal balance or gait. ASSESSMENT AND PLAN: _Severe dyspnea and shortness of breath with respiratory failure secondary to fluid overload and flash pulmonary edema still require dialysis almost on daily basis at this point. _Flash pulmonary edema: Patient apparently has been on dialysis 5 days a week and recently was changed not clear whether that become a necessity or not the patient be seen nephrology dialysis will be done today hopefully. See nephrology and using dialysis on as-needed basis based on demand with her current condition. _Urgent hypertension with a blood pressure running over 200 will resume her home medication between hydralazine 100 mg 3 times a day, Coreg 25 mg twice a day, torsemide 40 mg daily, nifedipine X L 60 mg twice a day. Will add if needed clonidine TTS patch weekly. _End-stage renal disease on hemodialysis initially was done 5 days a week and re cently was decreased to 3 days a week. Continue to have ultrafiltration/hemodialysis. _Type 1 diabetes has been on Levemir 30 units daily along with Accu-Chek with sliding scale coverage titrate dose higher if needed with the blood sugars under control at this point. _Gastroparesis: Resume Reglan along with pantoprazole and continue Zofran continue hydration and try to hold feeding at this point. _Congestive heart failure exacerbation not quite sure the patient has cardiomyopathy or not echocardiogram will be ordered and if significant change in ejection fraction will consult cardiology. _Hyperlipidemia: Remain on atorvastatin 40 mg a day. _Anemia: Iron deficiency and chronic in origin most likely dialysis related will continue iron as 40 mg weekly. _Recent history of stroke was related to type 1 diabetes along with urgent hypertension she is not on any antiplatelet agent at this point. _Severe gastritis: Required to be on PPI with pantoprazole. _Hypothyroidism: Continue levothyroxine 175 mcg daily. _Seizure: With no seizure activity lately continue Depakote ER 500 mg twice a day. _Chronic pain syndrome: Plain related to lower back pain and recurrent neuropathy pain. Patient can benefit probably from smaller dose of gabapentin in the meanwhile has been using hydrocodone 5/325 mg up to 4 times a day. Discussion: Patient will improved with dialysis but after 12 hours continue to have slight shortness of breath slight worsening symptoms with fluid overload require more help, patient hemodialysis been adjusted on regular basis continue to have significant urgent hypertension require more help with medication, blood sugars under better control, she is severely hypoxic require higher O2 flow and require BiPAP at night. Prognosis: Fair but the other possibility of complication on regular basis is very high. Objective - Vital Signs Vital signs: Vital Signs Temp 98.1 F 02/06/24 23:28 Pulse 75 02/07/24 05:00 Resp 15 02/07/24 05:00 BP 164/75 02/07/24 05:00 Pulse Ox 99 02/07/24 05:00 FiO2 50 02/06/24 03:33 Intake & Output 02/06/24 02/06/24 02/07/24 06:59 18:59 06:59 Intake Total 180 740 247 Output Total 350 0 450 Balance -170 740 -203 Weight 75.5 kg 76 kg Intake: IV 20 10 Invasive Line 1 20 10 Oral 180 720 237 Output: Gastric Drainage 0 Urine 350 0 Stool 0 Urine/Stool Mix 0 Emesis 0 450 Oral Regurgitation 0 Other 0 Other: Voiding Method Toilet Toilet Toilet Bedside Commode Bedside Commode Bedside Commode # Voids 1 1 1 # Bowel Movements 1 1 - Labs CBC & Chem 7: 02/06/24 11:08 02/06/24 11:08 Labs: Abnormal Lab Results - Last 24 Hours (Table) 02/06/24 02/06/24 02/06/24 Range/Units 11:08 11:08 11:37 RBC 2.39 L (3.80-5.40) m/uL Hgb 7.3 L (11.4-16.0) gm/dL Hct 23.3 L (34.0-46.0) % Eosinophils # 1.2 H (0-0.7) k/uL Sodium 134 L (137-145) mmol/L Potassium 5.3 H (3.5-5.1) mmol/L Chloride 97 L (98-107) mmol/L BUN 52 H (7-17) mg/dL Creatinine 4.52 H (0.52-1.04) mg/dL Glucose 253 H (74-99) mg/dL POC Glucose (mg/dL) 278 H (70-110) mg/dL Phosphorus 7.7 H (2.5-4.5) mg/dL ALT 36 H (4-34) U/L Total Protein 5.5 L (6.3-8.2) g/dL Albumin 3.3 L (3.5-5.0) g/dL 02/06/24 02/06/24 02/07/24 Range/Units 16:13 20:24 06:10 RBC (3.80-5.40) m/uL Hgb (11.4-16.0) gm/dL Hct (34.0-46.0) % Eosinophils # (0-0.7) k/uL Sodium (137-145) mmol/L Potassium (3.5-5.1) mmol/L Chloride (98-107) mmol/L BUN (7-17) mg/dL Creatinine (0.52-1.04) mg/dL Glucose (74-99) mg/dL POC Glucose (mg/dL) 255 H 142 H 309 H (70-110) mg/dL Phosphorus (2.5-4.5) mg/dL ALT (4-34) U/L Total Protein (6.3-8.2) g/dL Albumin (3.5-5.0) g/dL Microbiology - Last 24 Hours (Table) 02/05/24 17:24 Blood Culture - Preliminary Blood
--- NOTE | 2024-02-07 23:19 | PN ---
PROGRESS NOTE SUBJECTIVE: This patient is complaining of nausea and had quite a bit of emesis. She has what seems to be diabetes with some gastroparesis as well. I am recommending that we will try 5 mg of Reglan to see if that will help. Echo performed yesterday revealed preserved ejection fraction. This lady has type 1 diabetes, hypertension, chronic end- stage renal disease, on hemodialysis, depression and anxiety. Plan is to continue current medications. Try Reglan for her nausea and gastroparesis type symptoms. Continue other medications. OBJECTIVE: VITAL SIGNS: Stable. CARDIAC: S1, S2 heard normally. LUNGS: Revealed decent air entry. ABDOMEN: Soft. Bowel sounds are audible. Rest of physical exam unchanged. MMODL / IJN: [id number] /
[2024-02-08] MEDS: PANTOPRAZOLE 40 MG/10 ML VIAL IVP SCH (00:30)
[2024-02-08] MEDS: hydrALAZINE HCL 20 MG/ML 1 ML VIAL IVP PRN (00:30)
[2024-02-08 06:24] LABS: Glucose,Whole Blood 101 mg/dL (70-110)
[2024-02-08 08:53] LABS: HCT 22.8 % (34.0-46.0); HGB 7.5 gm/dL (11.4-16.0); MCH 31.2 pg (25.0-35.0); MCHC 32.9 g/dL (31.0-37.0); MCV 94.8 fL (80.0-100.0); Mean Platelet Volume 7.6; Platelet Count 315 k/uL (150-450); RBC 2.41 m/uL (3.80-5.40); RDW 14.9 % (11.5-15.5); WBC 8.2 k/uL (3.8-10.6)
[2024-02-08 09:02] LABS: ALT 22 U/L (4-34); AST 20 U/L (14-36); African American GFR (CKD) 12 (>60 ml/min/1.73 sqM); Albumin 2.8 g/dL (3.5-5.0); Alkaline Phosphatase 64 U/L (38-126); Anion Gap 11 mmol/L; Blood Urea Nitrogen 50 mg/dL (7-17); Calcium 8.1 mg/dL (8.4-10.2); Carbon Dioxide 23 mmol/L (22-30); Chloride 96 mmol/L (98-107); Glucose 150 mg/dL (74-99); Non-African American GFR(CKD) 10 (>60 ml/min/1.73 sqM); Potassium 4.8 mmol/L (3.5-5.1); Sodium 130 mmol/L (137-145); Total Bilirubin 0.5 mg/dL (0.2-1.3); Total Protein 4.9 g/dL (6.3-8.2)
--- NOTE | 2024-02-08 11:11 | P.PN ---
Subjective Patient is seen in follow-up for end-stage renal disease. She is maintained on hemodialysis on Wednesday schedule. Yesterday's treatment was cut short due to vomiting. Endoscopy being considered. Still feels nauseous. Vital signs are stable. General: No acute distress. HEENT: Head exam is unremarkable. On nasal cannula. LUNGS: No audible rhonchi or wheezes. HEART: Rate and Rhythm are regular. ABDOMEN: Nontender. EXTREMITITES: No edema. Objective - Vital Signs Vital signs: Vital Signs Temp 98.6 F 02/08/24 03:36 Pulse 98 02/08/24 08:30 Resp 18 02/08/24 08:30 BP 168/102 02/08/24 03:36 Pulse Ox 98 02/08/24 03:36 FiO2 50 02/06/24 03:33 Intake & Output 02/07/24 02/08/24 02/08/24 18:59 06:59 18:59 Intake Total 100 410 Output Total 700 2450 200 Balance -600 -2040 -200 Weight 72.4 kg Intake: IV 10 Invasive Line 1 10 Intake, IV Titration 100 Amount Sodium Ferric Gluconat- 100 Sucrose 125 mg In Sodium Chloride 0.9% 100 ml @ 100 mls/hr IVPB DAILY [facility] Rx#:[id number] Hemodialysis 400 Output: Urine 250 200 Stool 0 Emesis 700 Hemodialysis 2200 Other: Voiding Method Toilet Bedside Commode Bedside Commode Bedside Commode # Bowel Movements 0 1 - Labs CBC & Chem 7: 02/08/24 07:57 02/08/24 07:57 Labs: Abnormal Lab Results - Last 24 Hours (Table) 02/07/24 02/07/24 02/07/24 Range/Units 11:58 16:18 22:39 RBC (3.80-5.40) m/uL Hgb (11.4-16.0) gm/dL Hct (34.0-46.0) % Sodium (137-145) mmol/L Chloride (98-107) mmol/L BUN (7-17) mg/dL Creatinine (0.52-1.04) mg/dL Glucose (74-99) mg/dL POC Glucose (mg/dL) 378 H 250 H (70-110) mg/dL Calcium (8.4-10.2) mg/dL Total Protein (6.3-8.2) g/dL Albumin (3.5-5.0) g/dL Urine pH 8.5 H (5.0-8.0) Urine Protein 3+ H (Negative) Urine Glucose (UA) 2+ H (Negative) Urine Blood Trace H (Negative) Urine RBC 7 H (0-5) /hpf Urine Bacteria Rare H (None) /hpf Urine Mucus Rare H (None) /hpf 02/08/24 02/08/24 Range/Units 07:57 07:57 RBC 2.41 L (3.80-5.40) m/uL Hgb 7.5 L (11.4-16.0) gm/dL Hct 22.8 L (34.0-46.0) % Sodium 130 L (137-145) mmol/L Chloride 96 L (98-107) mmol/L BUN 50 H (7-17) mg/dL Creatinine 5.07 H (0.52-1.04) mg/dL Glucose 150 H (74-99) mg/dL POC Glucose (mg/dL) (70-110) mg/dL Calcium 8.1 L (8.4-10.2) mg/dL Total Protein 4.9 L (6.3-8.2) g/dL Albumin 2.8 L (3.5-5.0) g/dL Urine pH (5.0-8.0) Urine Protein (Negative) Urine Glucose (UA) (Negative) Urine Blood (Negative) Urine RBC (0-5) /hpf Urine Bacteria (None) /hpf Urine Mucus (None) /hpf Microbiology - Last 24 Hours (Table) 02/05/24 17:24 Blood Culture - Preliminary Blood Assessment and Plan Plan: Assessment: 1. End-stage renal disease maintained on hemodialysis on Wednesday schedule. 2. Hyperkalemia secondary to chronic kidney disease. Improved postdialysis. 3. Anemia of chronic kidney disease. Iron deficiency noted. Receiving IV i cece. On Aranesp. 4. Hypertension with chronic kidney disease. Exacerbated by vomiting. 5. Diabetes mellitus type I. 6. Volume overload. Improved with ultrafiltration. 7. Acute hypoxic respiratory failure. On nasal cannula. 8. Chronic kidney disease mineral bone disease. Phosphorus level 7.7 dated February 06, 2024. On Renvela. Plan: Hemodialysis today per her outpatient schedule. Maintain torsemide. Maintain IV hydralazine as well as clonidine patch. Has difficulty taking oral meds at this time due to nausea/vomiting. Avoid BRI/ARB due to tendency for hyperkalemia. Follow-up cultures. She spiked a fever last night. Also draw cultures from [facility].
[2024-02-08 11:46] LABS: Glucose,Whole Blood 383 mg/dL (70-110)
[2024-02-08] MEDS: METOCLOPRAMIDE 5 MG TAB PO SCH (12:14)
--- NOTE | 2024-02-08 13:20 | P.PN ---
Subjective Progress Note Date: 02/08/24 HISTORY OF PRESENT ILLNESS: This is a 34-year-old female with a past medical history significant for type 1 diabetes, hypertension, chronic kidney disease on hemodialysis, depression, anxiety, and hyperlipidemia. Patient follows in the office with Dr. Avila. We have been asked to see the patient in consultation for CHF. Patient examined at the bedside in the emergency room. Patient is somewhat lethargic at the time of examination. She is currently on BiPAP. Patient states she came to the hosp ital secondary to worsening shortness of breath. She states that she has been attending her dialysis as scheduled. She states she is currently getting hemodialysis 4 times a week. She denies any chest pain or pressure. She is currently undergoing hemodialysis at the time of examination with a goal of removal of 4 L. Patient states during her previous dialysis sessions they have been removing less than 3 L but she is unsure of the exact amount. The patient was found to have significantly elevated blood pressures upon arrival to the hospital with a blood pressure 199/24. DIAGNOSTICS: - EKG reveals sinus tachycardia with no signs of acute ischemia. Heart rate 113.. - Chest xray findings are consistent with more prominent fluid overload state. - Laboratory data: WBC 14.8. Hemoglobin 8.6. Platelet count 391. Sodium 138. Potassium 5.7. AST 54. ALT 52. Troponin negative x 1. proBNP 29,400 - Current home cardiac medication list has not been updated at the time of examination - Most recent echocardiogram obtained in December 2023 revealed ejection fraction 55 to 60%, mild MR, mild TR, and a small pericardial effusion with no tamponade physiology -Patient underwent HAYDER on 12/27/2023 secondary to bacteremia revealing aortic valve is tricuspid with normal function, mitral valve appears to be normal with mild MR, tricuspid valve is normal with no vegetation, the intra-atrial septum is intact. No evidence of PFO. Left atrial appendage is free of clot. Left ventricular ejection fraction 55%, no vegetation noted. Dialysis catheter noted in the right atrium with no vegetation noted on catheter. 02/06/2024 Had dialysis yesterday and was able to get 4L off. She is still having shortness of breath but this is improved, feels "air hunger". Feels chest pressure constant, same as yesterday, pain with deep breathing. Hgb 7.3, K+ 5.3. Blood pressure not well controlled. 02/07 Yesterday, Reglan was added for nausea and gastroparesis type symptoms. She states her nausea is improved and she is feeling better in general. Echocardiogram has revealed preserved EF. Chest x-ray improving bilateral central edema. Persistent right basilar acute infiltrate and or atelectasis. Repeat blood work reveals hemoglobin 7.5, BUN 50 creatinine 5.07, sodium 130, potassium 4.8, chloride 96, CO2 23. PHYSICAL EXAM: VITAL SIGNS: Reviewed. GENERAL: Well-developed in no acute distress. Pale. HEENT: Head is normocephalic. Pupils are equal, round. Sclerae anicteric. Mucous membranes of the mouth are moist. Neck supple. LUNGS: Respirations even and unlabored. Lungs essentially clear to auscultation bilaterally, on NC O2. HEART: Regular rate and rhythm. S1 and S2 heard. ABDOMEN: Soft. Nondistended. Nontender. EXTREMITIES: Normal range of motion. No clubbing or cyanosis. Peripheral pulses intact. Trace bilateral lower extremity edema NEUROLOGIC: Somewhat lethargic. Oriented x 3. ASSESSMENT: Shortness of breath Acute hypoxic respiratory failure was requiring BiPAP Acute on chronic heart failure with preserved ejection fraction likely more related to CKD/volume overload Hypertensive urgency End-stage renal disease on hemodialysis Anemia of chronic disease History of hypertension History of hyperlipidemia Type 1 diabetes History of CVA History of seizure Hypothyroidism Chronic pain syndrome PLAN: Continue current cardiac medications Cardiology will sign off this case and follow on an as-needed basis. Please reconsult for any new concerns. Patient may follow-up in the office with Dr. Avila in one to 2 weeks. Nurse practitioner note has been reviewed by physician. Signing provider agrees with the documented findings, assessment, and plan of care documented by [employer] as a scribe. Objective - Vital Signs Vital signs: Vital Signs Temp 98.6 F 02/08/24 03:36 Pulse 98 02/08/24 08:30 Resp 18 02/08/24 08:30 BP 168/102 02/08/24 03:36 Pulse Ox 98 02/08/24 03:36 FiO2 50 02/06/24 03:33 Intake & Output 02/07/24 02/08/24 02/08/24 18:59 06:59 18:59 Intake Total 100 410 Output Total 700 2450 200 Balance -600 -2040 -200 Weight 72.4 kg Intake: IV 10 Invasive Line 1 10 Intake, IV Titration 100 Amount Sodium Ferric Gluconat- 100 Sucrose 125 mg In Sodium Chloride 0.9% 100 ml @ 100 mls/hr IVPB DAILY [facility] Rx#:[id number] Hemodialysis 400 Output: Urine 250 200 Stool 0 Emesis 700 Hemodialysis 2200 Other: Voiding Method Toilet Bedside Commode Bedside Commode Bedside Commode # Bowel Movements 0 1 - Labs CBC & Chem 7: 02/08/24 07:57 02/08/24 07:57 Labs: Abnormal Lab Results - Last 24 Hours (Table) 02/07/24 02/07/24 02/07/24 Range/Units 11:58 16:18 22:39 RBC (3.80-5.40) m/uL Hgb (11.4-16.0) gm/dL Hct (34.0-46.0) % Sodium (137-145) mmol/L Chloride (98-107) mmol/L BUN (7-17) mg/dL Creatinine (0.52-1.04) mg/dL Glucose (74-99) mg/dL POC Glucose (mg/dL) 378 H 250 H (70-110) mg/dL Calcium (8.4-10.2) mg/dL Total Protein (6.3-8.2) g/dL Albumin (3.5-5.0) g/dL Urine pH 8.5 H (5.0-8.0) Urine Protein 3+ H (Negative) Urine Glucose (UA) 2+ H (Negative) Urine Blood Trace H (Negative) Urine RBC 7 H (0-5) /hpf Urine Bacteria Rare H (None) /hpf Urine Mucus Rare H (None) /hpf 02/08/24 02/08/24 Range/Units 07:57 07:57 RBC 2.41 L (3.80-5.40) m/uL Hgb 7.5 L (11.4-16.0) gm/dL Hct 22.8 L (34.0-46.0) % Sodium 130 L (137-145) mmol/L Chloride 96 L (98-107) mmol/L BUN 50 H (7-17) mg/dL Creatinine 5.07 H (0.52-1.04) mg/dL Glucose 150 H (74-99) mg/dL POC Glucose (mg/dL) (70-110) mg/dL Calcium 8.1 L (8.4-10.2) mg/dL Total Protein 4.9 L (6.3-8.2) g/dL Albumin 2.8 L (3.5-5.0) g/dL Urine pH (5.0-8.0) Urine Protein (Negative) Urine Glucose (UA) (Negative) Urine Blood (Negative) Urine RBC (0-5) /hpf Urine Bacteria (None) /hpf Urine Mucus (None) /hpf Microbiology - Last 24 Hours (Table) 02/05/24 17:24 Blood Culture - Preliminary Blood
--- NOTE | 2024-02-08 14:24 | P.PN ---
Subjective Progress Note Date: 02/08/24 Principal diagnosis: Acute hypoxic respiratory failure secondary to fluid overload/pulmonary edema/renal failure This is a 34-year-old female patient with acute hypoxic respiratory failure was being seen in the emergency and the patient is currently on a BiPAP pressure of 14 over 6 cm of water on 05 1260% and the patient's chest x-ray showing acute pulmonary edema and volume overload. She has a right IJ dialysis catheter in place. In the emergency, the patient was lethargic and yet arousable and the patient was undergoing hemodialysis. The goal of ultrafiltration is around 4.5 L. The patient has diabetes mellitus and end-stage renal disease and he has been maintained on hemodialysis 4 times a week. The patient was receiving 6 times a week and this was cut down to 4 times a week and this past week she was having some nausea vomiting. He has also had a recent CVA with impaired vision and some right-sided weakness. He has some optic neuritis and she has been e valuated [facility] treated with steroids. WBC count of 14.8, hemoglobin is at 8.6, normal coagulation profile, BUN is 57 with a creatinine of 5.6 and a sodium level of 138. Troponins are negative. proBNP level is 29,400. On today's evaluation of 02/06/2024, the patient is a 47 oxygen nasal cannula and the patient was taken off the BiPAP. The patient underwent hemodialysis yesterday with a total of 4.5 L of fluid removed. No significant respiratory distress. He is calm and comfortable. Hemodynamically stable. White cell count is at 10 with a hemoglobin 7.3 and a platelet count of 319. BUN is 52 with a creatinine of 4.5 and a sodium levels at 134 with a potassium level of 5 .3. The patient did not require ICU stay. He was transferred to telemetry unit. Patient was reevaluated today on 02/07/2024, remains on 4 L nasal cannula, O2 sats 98%, patient is scheduled to have hemodialysis again today. And in the meantime her chest x-ray continues to show evidence of pulmonary edema, patient seems to be calm, not in distress, but she seems to be chronically ill. WBC count is 10.2 hemoglobin 7.3. Potassium is 5.3 BUN is 52 creatinine 4.52 her last chest x-ray from 2 days ago showed evidence of pulmonary edema Patient was reevaluated today on 02/08/2024, patient has been maintained on hemodialysis on Wednesday and Wednesday schedule, seems to be doing much better from the pulmonary perspective, chest x-ray showed dramatic improvement in her fluid overload, and she continues to clinically improve. Reglan was added for nausea and gastroparesis type of symptoms. Her echocardiogram showed preserved ejection fraction labs were reviewed, hemoglobin remains low at 7.5, creatinine 5.07 Objective - Vital Signs Vital signs: Vital Signs Temp 98.6 F 02/08/24 03:36 Pulse 98 02/08/24 08:30 Resp 18 02/08/24 08:30 BP 168/102 02/08/24 03:36 Pulse Ox 98 02/08/24 03:36 FiO2 50 02/06/24 03:33 Intake & Output 02/07/24 02/08/24 02/08/24 18:59 06:59 18:59 Intake Total 100 410 Output Total 700 2450 200 Balance -600 -2040 -200 Weight 72.4 kg Intake: IV 10 Invasive Line 1 10 Intake, IV Titration 100 Amount Sodium Ferric Gluconat- 100 Sucrose 125 mg In Sodium Chloride 0.9% 100 ml @ 100 mls/hr IVPB DAILY [facility] Rx#:[id number] Hemodialysis 400 Output: Urine 250 200 Stool 0 Emesis 700 Hemodialysis 2200 Other: Voiding Method Toilet Bedside Commode Bedside Commode Bedside Commode # Bowel Movements 0 1 - Exam General: The patient is awake and alert, on 4 L nasal cannula, O2 saturation 98% Skin: Skin is warm and dry and no rashes or lesions are noted. Eye: Pupils are equal, round and reactive to light, extra-ocular movements are intact; there is normal conjunctiva bilaterally. Ears, nose, mouth and throat: There are moist mucous membranes and no oral lesions. Neck: The neck is supple, there is no tenderness or JVD. Cardiovascular: There is a regular rate and rhythm. No murmur, rub or gallop is appreciated. Respiratory: Minimal crackles at the bases no rhonchi no wheezes Gastrointestinal: Soft, non-distended, non-tender abdomen without masses or organomegaly noted. There is no rebound or guarding present. Bowel sounds are unremarkable. Back: There is no tenderness to palpation in the midline. There is no obvious deformity. Musculoskeletal: Normal ROM, no tenderness, There is trace of pedal edema. There is no calf tenderness or swelling. No cords were appreciated. Neurological: CN II-XII intact, Cranial nerves III through XII are intact. There are no obvious motor or sensory deficits. Coordination appears grossly intact. Speech is normal. Psychiatric: Cooperative, appropriate mood & affect, normal judgment. - Labs CBC & Chem 7: 02/08/24 07:57 02/08/24 07:57 Labs: Abnormal Lab Results - Last 24 Hours (Table) 02/07/24 02/07/24 02/08/24 Range/Units 16:18 22:39 07:57 RBC 2.41 L (3.80-5.40) m/uL Hgb 7.5 L (11.4-16.0) gm/dL Hct 22.8 L (34.0-46.0) % Sodium (137-145) mmol/L Chloride (98-107) mmol/L BUN (7-17) mg/dL Creatinine (0.52-1.04) mg/dL Glucose (74-99) mg/dL POC Glucose (mg/dL) 250 H (70-110) mg/dL Calcium (8.4-10.2) mg/dL Total Protein (6.3-8.2) g/dL Albumin (3.5-5.0) g/dL Urine pH 8.5 H (5.0-8.0) Urine Protein 3+ H (Negative) Urine Glucose (UA) 2+ H (Negative) Urine Blood Trace H (Negative) Urine RBC 7 H (0-5) /hpf Urine Bacteria Rare H (None) /hpf Urine Mucus Rare H (None) /hpf 02/08/24 02/08/24 Range/Units 07:57 11:45 RBC (3.80-5.40) m/uL Hgb (11.4-16.0) gm/dL Hct (34.0-46.0) % Sodium 130 L (137-145) mmol/L Chloride 96 L (98-107) mmol/L BUN 50 H (7-17) mg/dL Creatinine 5.07 H (0.52-1.04) mg/dL Glucose 150 H (74-99) mg/dL POC Glucose (mg/dL) 383 H (70-110) mg/dL Calcium 8.1 L (8.4-10.2) mg/dL Total Protein 4.9 L (6.3-8.2) g/dL Albumin 2.8 L (3.5-5.0) g/dL Urine pH (5.0-8.0) Urine Protein (Negative) Urine Glucose (UA) (Negative) Urine Blood (Negative) Urine RBC (0-5) /hpf Urine Bacteria (None) /hpf Urine Mucus (None) /hpf Microbiology - Last 24 Hours (Table) 02/05/24 17:24 Blood Culture - Preliminary Blood Assessment and Plan Assessment: impression: acute hypoxic respiratory failure secondary to massive fluid overload/pulmonary edema, improving with hemodialysis End-stage renal disease on hemodialysis maintained on hemodialysis 4 times a week Acute hyperkalemia secondary end-stage renal disease Anemia of chronic disease Diabetes mellitus type 1 Recent history of CVA with some residual right-sided weakness Optic neuritis maintain treated with steroids Recommendation: Continue ultrafiltration/hemodialysis Titrate oxygen accordingly Chest x-ray yesterday showed dramatic improvement in her fluid overload Continue diuretics Will continue to follow Continue IV iron Will clear for discharge once she is cleared by other consultants. Time with Patient: Less than 30
[2024-02-08 16:24] LABS: Glucose,Whole Blood 108 mg/dL (70-110)
[2024-02-08 20:37] LABS: Glucose,Whole Blood 85 mg/dL (70-110)
[2024-02-09 02:23] LABS: Glucose,Whole Blood 44 mg/dL (70-110)
[2024-02-09] MEDS: diphenhydrAMINE 25 MG CAP PO PRN (02:23)
[2024-02-09 02:42] LABS: Glucose,Whole Blood 50 mg/dL (70-110)
[2024-02-09] MEDS: DEXTROSE 50% SYRINGE 50 ML IVP PRN (02:42)
[2024-02-09 03:08] LABS: Glucose,Whole Blood 118 mg/dL (70-110)
--- NOTE | 2024-02-09 06:02 | P.PN ---
Subjective Progress Note Date: 02/08/24 HISTORY OF PRESENT ILLNESS: 34-year-old [address] 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 Patient was not hospitalized time in December 27, 2023 shortly after she left [facility] for complicated hospitalization related to her CVA along with her end-stage renal disease on hemodialysis leaving [facility] at the time she made it home and within [facility] with flash pulmonary edema require emergency dialysis with severely urgent hypertension 210/114. The patient was treated and become debilitated afterward require more PT OT and extra help ended up in [facility] for short-term rehab. Has been in [facility] since with multi complication related to. Patient apparently gets rejected from to center in [place] for dialysis for variety of present and continue to go to the dialysis center 5 days a week until this last week when her dialysis will cut down to 3 days a week only and she does dialysis close to 5 hours sometimes. Apparently she called her nurse in [facility] earlier this morning complaining of severe shortness of breath dyspnea and hypoxia not been able to lay down flat and found to have significantly low oxygen level in the 80s with pulse rate in the 110 blood pressure was urgently high above 200 at the time. EMS was called and patient was transferred to the emergency department at [facility] at the time she arrived her blood pressure was 199/ respiration over 20 with pulse oximetry running in the 80s with higher flow oxygen and supportive care brought it up to 99, chest x-ray shows finding consistent with fluid overload and congestive heart failure. EKG showed sinus tachycardia with pulse rate of 113 bpm. Laboratory value with white blood cell 14,000 hemoglobin 8.6 creatinine 5.62 with bun 56 slightly abnormal liver function test proBNP was 29 400. Patient was giving IV Vasotec along with lorazepam and morphine started on nebulizer management settle down with bed. Nephrology were called in for urgent dialysis patient be transferred to the ICU. 02/06/2024: Following her dialysis her shortness of breath had improved significantly: Patient apparently has been require more dialysis than before not a clear whether this is just her body adjusting with mild more dialysis than expected or she is noncompliant with salt and fluid which make her retain more than expected in short Period of time. Again necessity to see dietitian and plastics and composites inspector on regular basis also to follow her medication her diet her fluid intake and salt restriction low is expected to be on a more regular basis. Patient be seen Nephrology today no need for dialysis till tomorrow she still apparently scheduled for 3 times a week after this urgent dialysis this time, patient still require O2 at 3 L decreased to 2 L and probably prepare for discharge back to [facility] tomorrow after dialysis with no oxygen. 02/07/2024: The patient is more symptomatic today with Gastrointestinal symptoms including significant nausea not been able to tolerate any food or fluid, still on 4 L of O2 to keep her pulse ox at 98 percentile, she was on BiPAP through the night all night long, her hemoglobin is 7.3 with creatinine at 4.5 to. Chest x- ray does not show any evidence of pulmonary edema the patient still have the extreme high sensitivity for fluid overload and pulmonary edema require dialysis more often. 02/08/2024: She still having significant nausea and vomiting continue to move mor e fluid with hemodialysis, hemoglobin remained 7.5, echocardiogram was performed showed ejection fraction is well-preserved and normal. Chest x-ray shows significant improvement of bilateral central edema with persistent right base acute infiltrate with either atelectasis or pneumonia. Gastroparesis still bad enough that patient could not tolerate any food last 24 hours Reglan will be increased to 5 mg AC meals, still on Zofran on regular basis and on proton pump inhibitor. Consult gastroenterology for possible EGD. REVIEW OF SYSTEMS: CONSTITUTIONAL: Well-developed mild respiratory distress, wearing BiPAP. EYES: No icterus sclerae, no conjunctivitis. EARS, NOSE, MOUTH, THROAT, and FACE: No sore throat, lymphadenopathy, carotid bruits or deformity. RESPIRATORY: Positive shortness of breath cough and wheezes. CARDIOVASCULAR: Positive PND orthopnea and palpitation no angina. GASTROINTESTINAL: No Abd pain, Nausea or vomiting, no Diarrhea or constipation, No GI Bleed, no distention or masses. GENITOURINARY: Negative for Hematuria or UTI, no kidney stones. INTEGUMENT/BREAST: Negative for any muscular injury with mild osteoarthritis.. HEMATOLOGIC/LYMPHATIC: Negative for bleed or purpura. MUSCULOSKELTAL: Negative for Myalgia or arthralgia. NEURLOGICAL: No LOC, Sz or syncope, blurred vision dizziness or abnormality.. BEHAVIORAL/PSYCH: Negative. ENDOCRINE: Negative. PHYSICAL EXAMINATION: General Appearance: Alert, cooperative, slightly distressed looks older than her age. Neck HEENT: Supple, no lymphadenopathy, no thyroid enlargement, no carotid bruits. Lungs: Decreased breath sound bilaterally with fine rhonchi positive crackles and wheezes in both lung armendariz. Chest Wall: Decreased expansion with deep inspiration no tenderness and no deformity was found on exam, no costochondral pain or discomfort. Heart: Regular rate and rhythm, S1, S2 positive tachycardia , no murmur, rub or gallop. Back: Symmetric, no curvature, ROM normal, no CVA tenderness. Abdomen: Soft, non-tender, bowel sounds active all four quadrants, no masses, no organomegaly. Extremities: Extremities normal, atraumatic, no cyanosis trace edema. Pulses: 2+ and symmetric. Skin: Skin color, texture, tugor normal, no rashes or lesions. Neurologic: Alert oriented x3 cranial nerves II through XII intact, no motor deficit, no abnormal balance or gait. ASSESSMENT AND PLAN: _Severe dyspnea and shortness of breath with respiratory failure secondary to fluid overload and flash pulmonary edema still require dialysis almost on daily basis at this point. _Recurrent flash pulmonary edema: Has been requiring removing more fluid faster than expected which require more dialysis. _Urgent hypertension with a blood pressure running over 200 will resume her home medication between hydralazine 100 mg 3 times a day, Coreg 25 mg twice a day, torsemide 40 mg daily, nifedipine X L 60 mg twice a day. Will add if needed c lonidine TTS patch weekly. Blood pressure finally is much better running in the low 100s. _End-stage renal disease on hemodialysis initially was done 5 days a week and recently was decreased to 3 days a week. Continue to have ultrafiltration/hemodialysis. _Type 1 diabetes has been on Levemir 30 units daily along with Accu-Chek with sliding scale coverage titrate dose higher if needed, She is running little bit toward being low specially not having to eat or drink anything last 48 hours with intractable nausea and vomiting. _Gastroparesis: Resume Reglan along with pantoprazole and continue Zofran continue hydration and try to hold feeding at this point. Symptoms are much worsening increase Reglan up to 5 mg AC meals we will consult gastroenterology for possible EGD. _Congestive heart failure exacerbation not quite sure the patient has cardiomyopathy echocardiogram shows well-preserved ejection fraction so this is more exacerbation of diastolic congestive heart failure most likely fluid overload from her overflow dialysis our having to retain more water faster than expected related to dialysis. _Hyperlipidemia: Remain on atorvastatin 40 mg a day. _Anemia: Iron deficiency and chronic in origin most likely dialysis related will continue iron as 40 mg weekly. _Recent history of stroke was related to type 1 diabetes along with urgent hypertension she is not on any antiplatelet agent at this point. _Severe gastritis: Required to be on PPI with pantoprazole. _Hypothyroidism: Continue levothyroxine 175 mcg daily. _Seizure: With no seizure activity lately continue Depakote ER 500 mg twice a day. _Chronic pain syndrome: Plain related to lower back pain and recurrent neuropathy pain. Patient can benefit probably from smaller dose of gabapentin i n the meanwhile has been using hydrocodone 5/325 mg up to 4 times a day. Discussion: With much worsening nausea and vomiting given her fluid overload and status with dialysis slightly better with continue to have intractable symptoms with GI not able to tolerate any food or fluid down, will consult gastroenterology or general surgery at least for EGD. Prognosis: Fair but length of stay with hospitalization has increased significantly related to the other comorbidity patient has specially as type I diabetic with multiple complications related to gastroparesis. Also her fluid status is up and down significantly making the possibility of patient rehospitalization is a lot higher especially with the status of her adjustment to dialysis and fluid status there is no better way than having to s ee him probably end up having renal transplant which will solve this problem eventually. Objective - Vital Signs Vital signs: Vital Signs Temp 97.6 F 02/09/24 04:00 Pulse 76 02/09/24 04:00 Resp 16 02/09/24 04:00 BP 124/80 02/09/24 04:00 Pulse Ox 98 02/09/24 04:00 FiO2 50 02/06/24 03:33 Intake & Output 02/08/24 02/08/24 02/09/24 06:59 18:59 06:59 Intake Total 410 640 10 Output Total 2450 2100 Balance -[id number] 10 Weight 72.4 kg 71.8 kg Intake: IV 10 10 Invasive Line 1 10 Invasive Line 3 10 Oral 240 Hemodialysis 400 400 Output: Urine 250 200 Stool 0 Hemodialysis 2200 1900 Other: Voiding Method Bedside Commode Bedside Commode Bedside Commode # Voids 0 # Bowel Movements 1 1 0 - Labs CBC & Chem 7: 02/08/24 07:57 02/08/24 07:57 Labs: Abnormal Lab Results - Last 24 Hours (Table) 02/08/24 02/08/24 02/08/24 Range/Units 07:57 07:57 11:45 RBC 2.41 L (3.80-5.40) m/uL Hgb 7.5 L (11.4-16.0) gm/dL Hct 22.8 L (34.0-46.0) % Sodium 130 L (137-145) mmol/L Chloride 96 L (98-107) mmol/L BUN 50 H (7-17) mg/dL Creatinine 5.07 H (0.52-1.04) mg/dL Glucose 150 H (74-99) mg/dL POC Glucose (mg/dL) 383 H (70-110) mg/dL Calcium 8.1 L (8.4-10.2) mg/dL Total Protein 4.9 L (6.3-8.2) g/dL Albumin 2.8 L (3.5-5.0) g/dL 02/09/24 02/09/24 02/09/24 Range/Units 02:17 02:39 02:57 RBC (3.80-5.40) m/uL Hgb (11.4-16.0) gm/dL Hct (34.0-46.0) % Sodium (137-145) mmol/L Chloride (98-107) mmol/L BUN (7-17) mg/dL Creatinine (0.52-1.04) mg/dL Glucose (74-99) mg/dL POC Glucose (mg/dL) 44 L 50 L 118 H (70-110) mg/dL Calcium (8.4-10.2) mg/dL Total Protein (6.3-8.2) g/dL Albumin (3.5-5.0) g/dL Microbiology - Last 24 Hours (Table) 02/07/24 22:09 Blood Culture - Preliminary Blood 02/05/24 17:24 Blood Culture - Preliminary Blood
[2024-02-09 06:08] LABS: Glucose,Whole Blood 67 mg/dL (70-110)
[2024-02-09] MEDS: DEXTROSE 5% IN WATER 1,000 ML IV ONE (06:29)
[2024-02-09 06:38] LABS: Glucose,Whole Blood 99 mg/dL (70-110)
[2024-02-09 10:10] LABS: ALT 25 U/L (4-34); AST 30 U/L (14-36); African American GFR (CKD) 15 (>60 ml/min/1.73 sqM); Albumin 2.9 g/dL (3.5-5.0); Alkaline Phosphatase 77 U/L (38-126); Anion Gap 11 mmol/L; Blood Urea Nitrogen 40 mg/dL (7-17); Calcium 8.1 mg/dL (8.4-10.2); Carbon Dioxide 25 mmol/L (22-30); Chloride 95 mmol/L (98-107); Glucose 132 mg/dL (74-99); Non-African American GFR(CKD) 13 (>60 ml/min/1.73 sqM); Potassium 4.9 mmol/L (3.5-5.1); Sodium 131 mmol/L (137-145); Total Bilirubin 0.5 mg/dL (0.2-1.3)
[2024-02-09 10:29] LABS: HCT 22.4 % (34.0-46.0); HGB 7.1 gm/dL (11.4-16.0); Hypochromasia Slight; MCH 30.9 pg (25.0-35.0); MCHC 31.7 g/dL (31.0-37.0); MCV 97.4 fL (80.0-100.0); Mean Platelet Volume 8.2; Platelet Count 265 k/uL (150-450); WBC 7.5 k/uL (3.8-10.6)
[2024-02-09 11:21] LABS: Glucose,Whole Blood 249 mg/dL (70-110)
--- NOTE | 2024-02-09 11:23 | P.PN ---
Subjective Patient is seen in follow-up for end-stage renal disease. She is maintained on hemodialysis on Wednesday schedule. No problems with dialysis yesterday. Endoscopy being considered. Still feels nauseous. Has been vomiting as well. Vital signs are stable. General: No acute distress. HEENT: Head exam is unremarkable. On nasal cannula. LUNGS: No audible rhonchi or wheezes. HEART: Rate and Rhythm are regular. ABDOMEN: Nontender. EXTREMITITES: No edema. Objective - Vital Signs Vital signs: Vital Signs Temp 98.2 F 02/09/24 08:35 Pulse 100 02/09/24 08:35 Resp 16 02/09/24 08:35 BP 151/81 02/09/24 08:35 Pulse Ox 100 02/09/24 08:35 FiO2 50 02/06/24 03:33 Intake & Output 02/08/24 02/09/24 02/09/24 18:59 06:59 18:59 Intake Total 640 10 180 Output Total 2100 Balance -1460 10 180 Weight 71.8 kg Intake: IV 10 Invasive Line 3 10 Oral 240 180 Hemodialysis 400 Output: Urine 200 Stool 0 Hemodialysis 1900 Other: Voiding Method Bedside Commode Bedside Commode Bedside Commode # Voids 0 0 # Bowel Movements 1 0 0 - Labs CBC & Chem 7: 02/09/24 09:08 02/09/24 09:08 Labs: Abnormal Lab Results - Last 24 Hours (Table) 02/08/24 02/09/24 02/09/24 Range/Units 11:45 02:17 02:39 RBC (3.80-5.40) m/uL Hgb (11.4-16.0) gm/dL Hct (34.0-46.0) % Sodium (137-145) mmol/L Chloride (98-107) mmol/L BUN (7-17) mg/dL Creatinine (0.52-1.04) mg/dL Glucose (74-99) mg/dL POC Glucose (mg/dL) 383 H 44 L 50 L (70-110) mg/dL Calcium (8.4-10.2) mg/dL Total Protein (6.3-8.2) g/dL Albumin (3.5-5.0) g/dL 02/09/24 02/09/24 02/09/24 Range/Units 02:57 06:04 09:08 RBC 2.30 L (3.80-5.40) m/uL Hgb 7.1 L (11.4-16.0) gm/dL Hct 22.4 L (34.0-46.0) % Sodium (137-145) mmol/L Chloride (98-107) mmol/L BUN (7-17) mg/dL Creatinine (0.52-1.04) mg/dL Glucose (74-99) mg/dL POC Glucose (mg/dL) 118 H 67 L (70-110) mg/dL Calcium (8.4-10.2) mg/dL Total Protein (6.3-8.2) g/dL Albumin (3.5-5.0) g/dL 02/09/24 02/09/24 Range/Units 09:08 11:20 RBC (3.80-5.40) m/uL Hgb (11.4-16.0) gm/dL Hct (34.0-46.0) % Sodium 131 L (137-145) mmol/L Chloride 95 L (98-107) mmol/L BUN 40 H (7-17) mg/dL Creatinine 4.29 H (0.52-1.04) mg/dL Glucose 132 H (74-99) mg/dL POC Glucose (mg/dL) 249 H (70-110) mg/dL Calcium 8.1 L (8.4-10.2) mg/dL Total Protein 5.0 L (6.3-8.2) g/dL Albumin 2.9 L (3.5-5.0) g/dL Microbiology - Last 24 Hours (Table) 02/07/24 22:09 Blood Culture - Preliminary Blood 02/05/24 17:24 Blood Culture - Preliminary Blood Assessment and Plan Plan: Assessment: 1. End-stage renal disease maintained on hemodialysis on Wednesday schedule. 2. Hyperkalemia secondary to chronic kidney disease. Improved postdialysis. 3. Anemia of chronic kidney disease. Iron deficiency noted. Receiving IV iron. On Aranesp. 4. Hypertension with chronic kidney disease. Exacerbated by vomiting. Stable. 5. Diabetes mellitus type I. 6. Volume overload. Improved with ultrafiltration. 7. Acute hypoxic respiratory failure. On nasal cannula. 8. Chronic kidney disease mineral bone disease. Phosphorus level 7.7 dated February 06, 2024. On Renvela. Plan: Hemodialysis tomorrow. Maintain torsemide. Maintain IV hydralazine as well as clonidine patch. Has difficulty taking oral meds at this time due to nausea/vomiting. Avoid BRI/ARB due to tendency for hyperkalemia. Follow-up cultures. Endoscopy being considered. Surgery following.
--- NOTE | 2024-02-09 14:32 | P.PN ---
Subjective Progress Note Date: 02/09/24 Principal diagnosis: Acute hypoxic respiratory failure secondary to fluid overload/pulmonary edema/renal failure This is a 34-year-old female patient with acute hypoxic respiratory failure was being seen in the emergency and the patient is currently on a BiPAP pressure of 14 over 6 cm of water on 05 1260% and the patient's chest x-ray showing acute pulmonary edema and volume overload. She has a right IJ dialysis catheter in place. In the emergency, the patient was lethargic and yet arousable and the patient was undergoing hemodialysis. The goal of ultrafiltration is around 4.5 L. The patient has diabetes mellitus and end-stage renal disease and he has been maintained on hemodialysis 4 times a week. The patient was receiving 6 times a week and this was cut down to 4 times a week and this past week she was having some nausea vomiting. He has also had a recent CVA with impaired vision and some right-sided weakness. He has some optic neuritis and she has been e valuated [facility] treated with steroids. WBC count of 14.8, hemoglobin is at 8.6, normal coagulation profile, BUN is 57 with a creatinine of 5.6 and a sodium level of 138. Troponins are negative. proBNP level is 29,400. On today's evaluation of 02/06/2024, the patient is a 47 oxygen nasal cannula and the patient was taken off the BiPAP. The patient underwent hemodialysis yesterday with a total of 4.5 L of fluid removed. No significant respiratory distress. He is calm and comfortable. Hemodynamically stable. White cell count is at 10 with a hemoglobin 7.3 and a platelet count of 319. BUN is 52 with a creatinine of 4.5 and a sodium levels at 134 with a potassium level of 5 .3. The patient did not require ICU stay. He was transferred to telemetry unit. Patient was reevaluated today on 02/07/2024, remains on 4 L nasal cannula, O2 sats 98%, patient is scheduled to have hemodialysis again today. And in the meantime her chest x-ray continues to show evidence of pulmonary edema, patient seems to be calm, not in distress, but she seems to be chronically ill. WBC count is 10.2 hemoglobin 7.3. Potassium is 5.3 BUN is 52 creatinine 4.52 her last chest x-ray from 2 days ago showed evidence of pulmonary edema Patient was reevaluated today on 02/08/2024, patient has been maintained on hemodialysis on Wednesday and Wednesday schedule, seems to be doing much better from the pulmonary perspective, chest x-ray showed dramatic improvement in her fluid overload, and she continues to clinically improve. Reglan was added for nausea and gastroparesis type of symptoms. Her echocardiogram showed preserved ejection fraction labs were reviewed, hemoglobin remains low at 7.5, creatinine 5.07 Reevaluate today on 02/09/2024, patient continues to do well from the pulmonary perspective, significantly better after few rounds of hemodialysis, chest x-ray dramatically improved, patient is now on room air, nonetheless she is having symptoms of nausea and vomiting related to gastroparesis. Being considered for possible EGD tomorrow, labs were reviewed, hemoglobin is 7.1, patient does have chronic anemia BUN is 40 creatinine 4.29 Objective - Vital Signs Vital signs: Vital Signs Temp 98.2 F 02/09/24 08:35 Pulse 78 02/09/24 12:00 Resp 17 02/09/24 12:00 BP 116/70 02/09/24 12:00 Pulse Ox 98 02/09/24 12:00 FiO2 50 02/06/24 03:33 Intake & Output 02/08/24 02/09/24 02/09/24 18:59 06:59 18:59 Intake Total 640 10 360 Output Total 2100 Balance -1460 10 360 Weight 71.8 kg Intake: IV 10 Invasive Line 3 10 Oral 240 360 Hemodialysis 400 Output: Urine 200 Stool 0 Hemodialysis 1900 Other: Voiding Method Bedside Commode Bedside Commode Bedside Commode # Voids 0 0 # Bowel Movements 1 0 0 - Exam General: The patient is awake and alert, on room air, patient is nauseated and having episodes of vomiting Skin: Skin is warm and dry and no rashes or lesions are noted. Eye: Pupils are equal, round and reactive to light, extra-ocular movements are intact; there is normal conjunctiva bilaterally. Ears, nose, mouth and throat: There are moist mucous membranes and no oral lesions. Neck: The neck is supple, there is no tenderness or JVD. Cardiovascular: There is a regular rate and rhythm. No murmur, rub or gallop is appreciated. Respiratory: Lear throughout no crackles rhonchi or wheezes Gastrointestinal: Soft, non-distended, non-tender abdomen without masses or organomegaly noted. There is no rebound or guarding present. Bowel sounds are unremarkable. Back: There is no tenderness to palpation in the midline. There is no obvious deformity. Musculoskeletal: Normal ROM, no tenderness, There is trace of pedal edema. There is no calf tenderness or swelling. No cords were appreciated. Neurological: CN II-XII intact, Cranial nerves III through XII are intact. There are no obvious motor or sensory deficits. Coordination appears grossly intact. Speech is normal. Psychiatric: Cooperative, appropriate mood & affect, normal judgment. - Labs CBC & Chem 7: 02/09/24 09:08 02/09/24 09:08 Labs: Abnormal Lab Results - Last 24 Hours (Table) 02/09/24 02/09/24 02/09/24 Range/Units 02:17 02:39 02:57 RBC (3.80-5.40) m/uL Hgb (11.4-16.0) gm/dL Hct (34.0-46.0) % Sodium (137-145) mmol/L Chloride (98-107) mmol/L BUN (7-17) mg/dL Creatinine (0.52-1.04) mg/dL Glucose (74-99) mg/dL POC Glucose (mg/dL) 44 L 50 L 118 H (70-110) mg/dL Calcium (8.4-10.2) mg/dL Total Protein (6.3-8.2) g/dL Albumin (3.5-5.0) g/dL 02/09/24 02/09/24 02/09/24 Range/Units 06:04 09:08 09:08 RBC 2.30 L (3.80-5.40) m/uL Hgb 7.1 L (11.4-16.0) gm/dL Hct 22.4 L (34.0-46.0) % Sodium 131 L (137-145) mmol/L Chloride 95 L (98-107) mmol/L BUN 40 H (7-17) mg/dL Creatinine 4.29 H (0.52-1.04) mg/dL Glucose 132 H (74-99) mg/dL POC Glucose (mg/dL) 67 L (70-110) mg/dL Calcium 8.1 L (8.4-10.2) mg/dL Total Protein 5.0 L (6.3-8.2) g/dL Albumin 2.9 L (3.5-5.0) g/dL 02/09/24 Range/Units 11:20 RBC (3.80-5.40) m/uL Hgb (11.4-16.0) gm/dL Hct (34.0-46.0) % Sodium (137-145) mmol/L Chloride (98-107) mmol/L BUN (7-17) mg/dL Creatinine (0.52-1.04) mg/dL Glucose (74-99) mg/dL POC Glucose (mg/dL) 249 H (70-110) mg/dL Calcium (8.4-10.2) mg/dL Total Protein (6.3-8.2) g/dL Albumin (3.5-5.0) g/dL Microbiology - Last 24 Hours (Table) 02/07/24 22:09 Blood Culture - Preliminary Blood 02/05/24 17:24 Blood Culture - Preliminary Blood Assessment and Plan Assessment: impression: acute hypoxic respiratory failure secondary to massive fluid overload/pulmonary edema, improving with hemodialysis End-stage renal disease on hemodialysis maintained on hemodialysis Acute hyperkalemia secondary end-stage renal disease Anemia of chronic disease Diabetes mellitus type 1 Recent history of CVA with some residual right-sided weakness Optic neuritis maintain treated with steroids Nausea and vomiting, possible gastroparesis Recommendation: Continue ultrafiltration/hemodialysis Patient is now on room air Chest x-ray yesterday showed dramatic improvement in her fluid overload Continue diuretics Possible EGD tomorrow Will continue to follow Continue IV iron Will clear for discharge once she is cleared by other consultants. Time with Patient: Less than 30
--- NOTE | 2024-02-09 15:44 | P.GSCN ---
History of Present Illness Consult date: 02/09/24 History of present illness: CHIEF COMPLAINT: Shortness of breath Reason for consult EGD and gastroparesis HISTORY OF PRESENT ILLNESS: This is a 34-year-old female who presented to the hospital with shortness of breath and respiratory failure due to fluid overload. Patient is end-stage renal disease on hemodialysis. Patient is a diabetic. Patient has been having nausea and vomiting x 2 days. She has a known history of gastroparesis. She has never had a EGD completed. They have adjusted her Reglan dose and patient continues to have nausea and vomiting. Surgical service consulted for EGD. PAST MEDICAL HISTORY: Diabetes Mellitus, GERD/Reflux, Hypertension, Renal Disease, Seizure Disorder, Thyroid Disorder,patient awaiting Kidney and Pancrease Transplant, CVA PAST SURGICAL HISTORY: Adenoidectomy, Section, Cholecystectomy, Orthopedic Surgery, Tonsillectomy MEDICATIONS: See below ALLERGIES: See below SOCIAL HISTORY: No illicit drug use. REVIEW OF SYSTEMS: CONSTITUTIONAL: Denies fever or chills. HEENT: Denies blurred vision, vision changes, or eye pain. Denies hemoptysis CARDIOVASCULAR: Denies chest pain or pressure. RESPIRATORY: No shortness of breath. GASTROINTESTINAL: See HPI for pertinent findings HEMATOLOGIC: Denies bleeding disorders. GENITOURINARY: Denies any blood in urine or increased urinary frequency. SKIN: Denies pruitis. Denies rash. PHYSICAL EXAM: VITAL SIGNS: Reviewed GENERAL: Well-developed in no acute distress. HEENT: No sclera icterus. Extraocular movements grossly intact. Moist buccal mucosa. Head is atraumatic, normocephalic. No nasal drainage. ABDOMEN: Soft. Nondistended. Epigastric tenderness NEUROLOGIC: Alert and oriented. Cranial nerves II through XII grossly intact. LABORATORY DATA: WBC 7.5 Hgb 7.1 platelets 265 Sodium 131 potassium 4.9 creatinine 4.29 IMAGING: ASSESSMENT: 1. Nausea and vomiting with known history of gastroparesis PLAN: -Patient scheduled for EGD tomorrow with Dr. Bella -N.p.o. after midnight -Continue Reglan Physician Sap Fico Architect note has been reviewed by physician. Signing provider agrees with the documented findings, assessment, and plan of care. Past Medical History Past Medical History: Heart Failure, Diabetes Mellitus, GERD/Reflux, Hypertension, Renal Disease, Seizure Disorder, Thyroid Disorder Additional Past Medical History / Comment(s): Neuropathy, last seizure 2020, gastroparesis, headaches with dialysis, states "fast heart rate" since giving ., receives Hemodialysis Wednesday- and Saturdays at [facility] [place] right chest hemodialysis catheter., severe HTN. patient awaiting Kidney and Pancrease Transplant. , states sometimes she has had stroke -like symptoms but no stroke., hx of c-diff 2013. History of Any Multi-Drug Resistant Organisms: None Reported Year Discovered:: 2013 MDRO Source:: stool Past Surgical History: Adenoidectomy, Section, Cholecystectomy, Orthopedic Surgery, Tonsillectomy Additional Past Surgical History / Comment(s): 2 KNEE SCOPES, EAR TUBES, additional left knee surgery related to fracture, new port a cath jul 29, eye surgeries for diabetic retinopathy, removal of peritoneal port 01/08 Past Anesthesia/Blood Transfusion Reactions: Previous Problems w/ Anesthesia Additional Past Anesthesia/Blood Transfusion Reaction / Comm: increased confusion/restlessness Past Psychological History: Anxiety, Depression Smoking Status: Former smoker Past Alcohol Use History: None Reported Additional Past Alcohol Use History / Comment(s): quit smoking 01/08 hx of up to 3 ppd. Past Drug Use History: Marijuana, Methamphetamine Additional Drug Use History / Comment(s): previously using marijuana edibles in nov 2023. Not eating currently - Past Family History Father Family Medical History: Unable to Obtain Mother Family Medical History: Thyroid Disorder Additional Family Medical History / Comment(s): hypothyroid Grandfather Family Medical History: Coronary Artery Disease (CAD) Additional Family Medical History / Comment(s): Diabetes mellitus type 2 Medications and Allergies Home Medications Medication Instructions Recorded Confirmed Type Levothyroxine Sodium [Synthroid] 175 mcg PO DAILY@0600 10/22/23 02/05/24 History Sertraline [Zoloft] 200 mg PO DAILY@0800 10/22/23 02/05/24 History Atorvastatin [Lipitor] 40 mg PO HS@2100 12/27/23 02/05/24 History Divalproex ER [Depakote ER] 500 mg PO BID@0600,1700 12/27/23 02/05/24 History Ondansetron [Zofran] 4 mg PO Q8HR PRN 12/27/23 02/05/24 History Pantoprazole [Protonix] 40 mg PO DAILY@0600 02/12/24 03/23/24 History [place] Caps 1 cap PO HS@2100 12/27/23 02/05/24 History carvediloL [Coreg] 25 mg PO BID@0600,1700 12/27/23 02/05/24 History hydrALAZINE HCL [Apresoline] 100 mg PO TID@0600,1400,2200 12/27/23 02/05/24 History methocarbamoL [Robaxin-750] 750 mg PO QID@06,12,17,12/27/23 02/05/24 History Insulin Detemir (Levemir) [Levemir] 30 unit SQ DAILY@1330 each 01/14/24 02/05/24 Rx ALPRAZolam [Xanax] 0.25 mg PO QID PRN 02/05/24 02/05/24 History Aspirin 81 mg PO DAILY@0800 02/05/24 02/05/24 History Docusate [Colace] 100 mg PO DAILY@0800 02/05/24 02/05/24 History HYDROcodone/APAP 5-325MG [Temple 1 tab PO Q8H PRN 02/05/24 02/05/24 History 5-325] Insulin Aspart [NovoLOG Flexpen] 5 units SQ TID@08,12,17 02/05/24 02/05/24 History Insulin Aspart [NovoLOG Flexpen] See Protocol SQ 02/05/24 02/05/24 History ACHS@07,11,1630,2130 Lidocaine 4% Patch 1 patch TOPICAL DAILY@0800 02/05/24 02/05/24 History Magnesium Hydroxide [Milk of 7,200 mg PO DAILY PRN 02/05/24 02/05/24 History Magnesia Concentrate] Menthol [Biofreeze] 1 applic TOPICAL BID PRN 02/05/24 02/05/24 History Metoclopramide [Reglan] 2.5 mg PO BID@0600,1500 02/05/24 02/05/24 History NIFEdipine XL [Procardia XL] 60 mg PO BID@0800,1700 02/05/24 02/05/24 History Sevelamer [Renvela] 1,600 mg PO AC-TID@07,11,1830 02/05/24 02/05/24 History Torsemide [Demadex] 40 mg PO DAILY@0800 02/05/24 02/05/24 History amLODIPine [Norvasc] 5 mg PO DAILY@0800,1700 PRN 02/05/24 02/05/24 History bisacodyL [Dulcolax] 10 mg RECTAL DAILY PRN 02/05/24 02/05/24 History Allergies Allergy/AdvReac Type Severity Reaction Status Date / Time hydromorphone HCl Allergy Anaphylaxis Verified 02/05/24 13:04 [From Dilaudid] ibuprofen [From Motrin] Allergy unable to Verified 02/05/24 13:04 take due to kidney disease propoxyphene Allergy Rash/Hives Verified 02/05/24 13:04 [From Darvocet-N] tramadol Allergy Anaphylaxis Verified 02/05/24 13:04 venom-honey bee Allergy passes out Verified 02/05/24 13:04 [bee venom (honey bee)] Surgical - Exam Vital Signs Temp Pulse Resp BP Pulse Ox 98.4 F 123 H 28 H 199/124 90 L 02/05/24 02:07 02/05/24 02:07 02/05/24 02:07 02/05/24 02:07 02/05/24 02:07 Results - Labs 02/09/24 09:08 02/09/24 09:08 Abnormal Lab Results - Last 24 Hours (Table) 02/09/24 02/09/24 02/09/24 Range/Units 02:17 02:39 02:57 RBC (3.80-5.40) m/uL Hgb (11.4-16.0) gm/dL Hct (34.0-46.0) % Sodium (137-145) mmol/L Chloride (98-107) mmol/L BUN (7-17) mg/dL Creatinine (0.52-1.04) mg/dL Glucose (74-99) mg/dL POC Glucose (mg/dL) 44 L 50 L 118 H (70-110) mg/dL Calcium (8.4-10.2) mg/dL Total Protein (6.3-8.2) g/dL Albumin (3.5-5.0) g/dL 02/09/24 02/09/24 02/09/24 Range/Units 06:04 09:08 09:08 RBC 2.30 L (3.80-5.40) m/uL Hgb 7.1 L (11.4-16.0) gm/dL Hct 22.4 L (34.0-46.0) % Sodium 131 L (137-145) mmol/L Chloride 95 L (98-107) mmol/L BUN 40 H (7-17) mg/dL Creatinine 4.29 H (0.52-1.04) mg/dL Glucose 132 H (74-99) mg/dL POC Glucose (mg/dL) 67 L (70-110) mg/dL Calcium 8.1 L (8.4-10.2) mg/dL Total Protein 5.0 L (6.3-8.2) g/dL Albumin 2.9 L (3.5-5.0) g/dL 02/09/24 Range/Units 11:20 RBC (3.80-5.40) m/uL Hgb (11.4-16.0) gm/dL Hct (34.0-46.0) % Sodium (137-145) mmol/L Chloride (98-107) mmol/L BUN (7-17) mg/dL Creatinine (0.52-1.04) mg/dL Glucose (74-99) mg/dL POC Glucose (mg/dL) 249 H (70-110) mg/dL Calcium (8.4-10.2) mg/dL Total Protein (6.3-8.2) g/dL Albumin (3.5-5.0) g/dL Microbiology - Last 24 Hours (Table) 02/07/24 22:09 Blood Culture - Preliminary Blood 02/05/24 17:24 Blood Culture - Preliminary Blood Diabetes panel 02/09/24 Range/Units 09:08 Sodium 131 L (137-145) mmol/L Potassium 4.9 (3.5-5.1) mmol/L Chloride 95 L (98-107) mmol/L Carbon Dioxide 25 (22-30) mmol/L BUN 40 H (7-17) mg/dL Creatinine 4.29 H (0.52-1.04) mg/dL Glucose 132 H (74-99) mg/dL Calcium 8.1 L (8.4-10.2) mg/dL AST 30 (14-36) U/L ALT 25 (4-34) U/L Alkaline Phosphatase 77 (38-126) U/L Total Protein 5.0 L (6.3-8.2) g/dL Albumin 2.9 L (3.5-5.0) g/dL Calcium panel 02/09/24 Range/Units 09:08 Calcium 8.1 L (8.4-10.2) mg/dL Albumin 2.9 L (3.5-5.0) g/dL Pituitary panel 02/09/24 Range/Units 09:08 Sodium 131 L (137-145) mmol/L Potassium 4.9 (3.5-5.1) mmol/L Chloride 95 L (98-107) mmol/L Carbon Dioxide 25 (22-30) mmol/L BUN 40 H (7-17) mg/dL Creatinine 4.29 H (0.52-1.04) mg/dL Glucose 132 H (74-99) mg/dL Calcium 8.1 L (8.4-10.2) mg/dL Adrenal panel 02/09/24 Range/Units 09:08 Sodium 131 L (137-145) mmol/L Potassium 4.9 (3.5-5.1) mmol/L Chloride 95 L (98-107) mmol/L Carbon Dioxide 25 (22-30) mmol/L BUN 40 H (7-17) mg/dL Creatinine 4.29 H (0.52-1.04) mg/dL Glucose 132 H (74-99) mg/dL Calcium 8.1 L (8.4-10.2) mg/dL Total Bilirubin 0.5 (0.2-1.3) mg/dL AST 30 (14-36) U/L ALT 25 (4-34) U/L Alkaline Phosphatase 77 (38-126) U/L Total Protein 5.0 L (6.3-8.2) g/dL Albumin 2.9 L (3.5-5.0) g/dL
[2024-02-09 16:40] LABS: Glucose,Whole Blood 208 mg/dL (70-110)
[2024-02-09 20:30] LABS: Glucose,Whole Blood 203 mg/dL (70-110)
[2024-02-10 02:30] LABS: Glucose,Whole Blood 452 mg/dL (70-110)
[2024-02-10 03:56] LABS: Glucose,Whole Blood 486 mg/dL (70-110)
[2024-02-10] MEDS: INSULIN ASPART (NovoLOG) 100 UNIT/ML VIAL SQ ONE ×2 (04:03→06:42)
[2024-02-10 05:02] LABS: Glucose,Whole Blood 501 mg/dL (70-110)
--- NOTE | 2024-02-10 05:27 | P.PN ---
Subjective Progress Note Date: 02/09/24 HISTORY OF PRESENT ILLNESS: 34-year-old [address] Sullivan's patient who has been in 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 Patient was not hospitalized time in December 27, 2023 shortly after she left [facility] for complicated hospitalization related to her CVA along with her end-stage renal disease on hemodialysis leaving [facility] at the time she made it home and [facility] with flash pulmonary edema require emergency dialysis with severely urgent hypertension 210/114. The patient was treated and become debilitated afterward require more PT OT and extra help ended up in [facility] for short-term rehab. Has been in [facility] since with multi complication related to. Patient apparently gets rejected from to center in [place] for dialysis for variety of present and continue to go to the dialysis center 5 days a week until this last week when her dialysis will cut down to 3 days a week only and she does dialysis close to 5 hours sometimes. Apparently she called her nurse in [facility] earlier this morning complaining of severe shortness of breath dyspnea and hypoxia not been able to lay down flat and found to have significantly low oxygen level in the 80s with pulse rate in the 110 blood pressure was urgently high above 200 at the time. EMS was called and patient was transferred to the emergency department at [facility] at the time she arrived her blood pressure was 199/ respiration over 20 with pulse oximetry running in the 80s with higher flow oxygen and supportive care brought it up to 99, chest x-ray shows finding consistent with fluid overload and congestive heart failure. EKG showed sinus tachycardia with pulse rate of 113 bpm. Laboratory value with white blood cell 14,000 hemoglobin 8.6 creatinine 5.62 with bun 56 slightly abnormal liver function test proBNP was 29 400. Patient was giving IV Vasotec along with lorazepam and morphine started on nebulizer management settle down with bed. Nephrology were called in for urgent dialysis patient be transferred to the ICU. 02/06/2024: Following her dialysis her shortness of breath had improved significantly: Patient apparently has been require more dialysis than before not a clear whether this is just her body adjusting with mild more dialysis than expected or she is noncompliant with salt and fluid which make her retain more than expected in short Period of time. Again necessity to see dietitian and director dermatology on regular basis also to follow her medication her diet her fluid intake and salt restriction low is expected to be on a more regular basis. Patient be seen Nephrology today no need for dialysis till tomorrow she still apparently scheduled for 3 times a week after this urgent dialysis this time, patient still require O2 at 3 L decreased to 2 L and probably prepare for discharge back to [facility] tomorrow after dialysis with no oxygen. 02/07/2024: The patient is more symptomatic today with Gastrointestinal symptoms including significant nausea not been able to tolerate any food or fluid, still on 4 L of O2 to keep her pulse ox at 98 percentile, she was on BiPAP through the night all night long, her hemoglobin is 7.3 with creatinine at 4.5 to. Chest x- ray does not show any evidence of pulmonary edema the patient still have the extreme high sensitivity for fluid overload and pulmonary edema require dialysis more often. 02/08/2024: She still having significant nausea and vomiting continue to move mor e fluid with hemodialysis, hemoglobin remained 7.5, echocardiogram was performed showed ejection fraction is well-preserved and normal. Chest x-ray shows significant improvement of bilateral central edema with persistent right base acute infiltrate with either atelectasis or pneumonia. Gastroparesis still bad enough that patient could not tolerate any food last 24 hours Reglan will be increased to 5 mg AC meals, still on Zofran on regular basis and on proton pump inhibitor. Consult gastroenterology for possible EGD. 02/09/2024: The patient started having hypoglycemia this morning with blood sugar running 44 and 61 holding her insulin this morning continue D5 continue supportive care for now, her intractable nausea and vomiting has settled some remain on Reglan for now and pantoprazole. We will initiate feeding at this point cautiously. Patient will skip dialysis today for tomorrow. Blood pressure remain a problem patient has been on IV hydralazine along with the clonidine patch because she is able to take her oral meds still trying to avoid BRI and ARB. GI service apparently not available patient be seen general surgery for possible EGD. REVIEW OF SYSTEMS: CONSTITUTIONAL: Well-developed mild respiratory distress, wearing BiPAP. EYES: No icterus sclerae, no conjunctivitis. EARS, NOSE, MOUTH, THROAT, and FACE: No sore throat, lymphadenopathy, carotid bruits or deformity. RESPIRATORY: Positive shortness of breath cough and wheezes. CARDIOVASCULAR: Positive PND orthopnea and palpitation no angina. GASTROINTESTINAL: No Abd pain, Nausea or vomiting, no Diarrhea or constipation, No GI Bleed, no distention or masses. GENITOURINARY: Negative for Hematuria or UTI, no kidney stones. INTEGUMENT/BREAST: Negative for any muscular injury with mild osteoarthritis.. HEMATOLOGIC/LYMPHATIC: Negative for bleed or purpura. MUSCULOSKELTAL: Negative for Myalgia or arthralgia. NEURLOGICAL: No LOC, Sz or syncope, blurred vision dizziness or abnormality.. BEHAVIORAL/PSYCH: Negative. ENDOCRINE: Negative. PHYSICAL EXAMINATION: General Appearance: Alert, cooperative, slightly distressed looks older than her age. Neck HEENT: Supple, no lymphadenopathy, no thyroid enlargement, no carotid bruits. Lungs: Decreased breath sound bilaterally with fine rhonchi positive crackles and wheezes in both lung armendariz. Chest Wall: Decreased expansion with deep inspiration no tenderness and no deformity was found on exam, no costochondral pain or discomfort. Heart: Regular rate and rhythm, S1, S2 positive tachycardia , no murmur, rub or gallop. Back: Symmetric, no curvature, ROM normal, no CVA tenderness. Abdomen: Soft, non-tender, bowel sounds active all four quadrants, no masses, no organomegaly. Extremities: Extremities normal, atraumatic, no cyanosis trace edema. Pulses: 2+ and symmetric. Skin: Skin color, texture, tugor normal, no rashes or lesions. Neurologic: Alert oriented x3 cranial nerves II through XII intact, no motor deficit, no abnormal balance or gait. ASSESSMENT AND PLAN: _Severe dyspnea and shortness of breath with respiratory failure secondary to fluid overload and flash pulmonary edema still require dialysis almost on daily basis at this point. _Recurrent flash pulmonary edema: Has been requiring removing more fluid faster than expected which require more dialysis. _Urgent hypertension with a blood pressure running over 200 will resume her home medication between hydralazine 100 mg 3 times a day, Coreg 25 mg twice a day, torsemide 40 mg daily, nifedipine X L 60 mg twice a day. Will add if needed clonidine TTS patch weekly. Blood pressure finally is much better running in the low 100s. Continue to rely on IV hydralazine along with clonidine patch till patient is able to take her oral meds. _End-stage renal disease on hemodialysis initially was done 5 days a week and recently was decreased to 3 days a week. Continue to have ultrafiltration/hemodialysis. _Type 1 diabetes: Patient sadly developed to have severe hypoglycemia her Levemir has been and held for now continue Accu-Chek with sliding scale coverage reinitiate Levemir as soon as her blood sugar is up we will switch probably Levemir from nighttime to morning and will least start maybe 15 to 20 units tomorrow. _ Hypoglycemia: Holding Levemir till tomorrow continue Accu-Chek with sliding scale coverage and patient is on D5 for now till her blood sugars about 120. _Gastroparesis: Resume Reglan along with pantoprazole and continue Zofran continue hydration and try to hold feeding at this point. Symptoms are much worsening increase Reglan up to 5 mg AC meals we will consult gastroenterology for possible EGD. _Congestive heart failure: Patient echocardiogram showed well-preserved ejection fraction patient is having probably diastolic dysfunction on most likely the fluid exchange with related to her dialysis and how rapid were able to exchange fluid while she is in end-stage renal failure. _Hyperlipidemia: Remain on atorvastatin 40 mg a day. _Anemia: Iron deficiency and chronic in origin most likely dialysis related will continue iron as 40 mg weekly. _Recent history of stroke was related to type 1 diabetes along with urgent hypertension she is not on any antiplatelet agent at this point. _Severe gastritis: Required to be on PPI with pantoprazole. _Hypothyroidism: Continue levothyroxine 175 mcg daily. _Seizure: With no seizure activity lately continue Depakote ER 500 mg twice a day. _Chronic pain syndrome: Plain related to lower back pain and recurrent neuro lanette pain. Patient can benefit probably from smaller dose of gabapentin in the meanwhile has been using hydrocodone 5/325 mg up to 4 times a day. Discussion: Still having intractable nausea and vomiting require probably EGD, her Reglan was increased up to 5 mg AC meals. Initiate fluid today gradually. Discharge planning not clear whether patient will be able to discharge next 24 hours or not still all depend whether she is able to keep her food down, shortness of breath is down and require less dialysis and if her blood sugar recover. Objective - Vital Signs Vital signs: Vital Signs Temp 97.6 F 02/09/24 04:00 Pulse 76 02/09/24 04:00 Resp 16 02/09/24 04:00 BP 124/80 02/09/24 04:00 Pulse Ox 98 02/09/24 04:00 FiO2 50 02/06/24 03:33 Intake & Output 02/08/24 02/08/24 02/09/24 06:59 18:59 06:59 Intake Total 410 640 10 Output Total 2450 2100 Balance -2039 -146 10 Weight 72.4 kg 71.8 kg Intake: IV 10 10 Invasive Line 1 10 Invasive Line 3 10 Oral 240 Hemodialysis 400 400 Output: Urine 250 200 Stool 0 Hemodialysis 2200 1900 Other: Voiding Method Bedside Commode Bedside Commode Bedside Commode # Voids 0 # Bowel Movements 1 1 0 - Labs CBC & Chem 7: 02/09/24 09:08 02/09/24 09:08 Labs: Abnormal Lab Results - Last 24 Hours (Table) 02/08/24 02/08/24 02/08/24 Range/Units 07:57 07:57 11:45 RBC 2.41 L (3.80-5.40) m/uL Hgb 7.5 L (11.4-16.0) gm/dL Hct 22.8 L (34.0-46.0) % Sodium 130 L (137-145) mmol/L Chloride 96 L (98-107) mmol/L BUN 50 H (7-17) mg/dL Creatinine 5.07 H (0.52-1.04) mg/dL Glucose 150 H (74-99) mg/dL POC Glucose (mg/dL) 383 H (70-110) mg/dL Calcium 8.1 L (8.4-10.2) mg/dL Total Protein 4.9 L (6.3-8.2) g/dL Albumin 2.8 L (3.5-5.0) g/dL 02/09/24 02/09/24 02/09/24 Range/Units 02:17 02:39 02:57 RBC (3.80-5.40) m/uL Hgb (11.4-16.0) gm/dL Hct (34.0-46.0) % Sodium (137-145) mmol/L Chloride (98-107) mmol/L BUN (7-17) mg/dL Creatinine (0.52-1.04) mg/dL Glucose (74-99) mg/dL POC Glucose (mg/dL) 44 L 50 L 118 H (70-110) mg/dL Calcium (8.4-10.2) mg/dL Total Protein (6.3-8.2) g/dL Albumin (3.5-5.0) g/dL 02/09/24 Range/Units 06:04 RBC (3.80-5.40) m/uL Hgb (11.4-16.0) gm/dL Hct (34.0-46.0) % Sodium (137-145) mmol/L Chloride (98-107) mmol/L BUN (7-17) mg/dL Creatinine (0.52-1.04) mg/dL Glucose (74-99) mg/dL POC Glucose (mg/dL) 67 L (70-110) mg/dL Calcium (8.4-10.2) mg/dL Total Protein (6.3-8.2) g/dL Albumin (3.5-5.0) g/dL Microbiology - Last 24 Hours (Table) 02/07/24 22:09 Blood Culture - Preliminary Blood 02/05/24 17:24 Blood Culture - Preliminary Blood
[2024-02-10 06:31] LABS: Glucose,Whole Blood 424 mg/dL (70-110)
[2024-02-10] MEDS: INSULIN DETEMIR (LEVEMIR) 100 UNIT/ML SYR SQ SCH (06:43)
[2024-02-10] MEDS ORDERED: INSULIN DETEMIR (LEVEMIR) 100 UNIT/ML SYR SQ SCH (07:00)
[2024-02-10 07:59] LABS: Glucose,Whole Blood 274 mg/dL (70-110)
--- NOTE | 2024-02-10 08:22 | P.PN ---
Subjective Progress Note Date: 02/10/24 HISTORY OF PRESENT ILLNESS: 34-year-old [address] 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 Patient was not hospitalized time in December 27, 2023 shortly after she left [facility] for complicated hospitalization related to her CVA along with her end-stage renal disease on hemodialysis leaving [facility] at the time she made it home and within 24 hours in the [facility] and [facility] with flash pulmonary edema require emergency dialysis with severely urgent hypertension 210/114. The patient was treated and become debilitated afterward require more PT OT and extra help ended up in [facility] for short-term rehab. Has been in [facility] since with multi complication related to. Patient apparently gets rejected from to center in [place] for dialysis for variety of present and continue to go to the dialysis center 5 days a week until this last week when her dialysis will cut down to 3 days a week only and she does dialysis close to 5 hours sometimes. Apparently she called her nurse in [facility] earlier this morning complaining of severe shortness of breath dyspnea and hypoxia not been able to lay down flat and found to have significantly low oxygen level in the 80s with pulse rate in the 110 blood pressure was urgently high above 200 at the time. EMS was called and patient was transferred to the emergency department at [facility] at the time she arrived her blood pressure was 199/ respiration over 20 with pulse oximetry running in the 80s with higher flow oxygen and supportive care brought it up to 99, chest x-ray shows finding consistent with fluid overload and congestive heart failure. EKG showed sinus tachycardia with pulse rate of 113 bpm. Laboratory value with white blood cell 14,000 hemoglobin 8.6 creatinine 5.62 with bun 56 slightly abnormal liver function test proBNP was 29 400. Patient was giving IV Vasotec along with lorazepam and morphine started on nebulizer management settle down with bed. Nephrology were called in for urgent dialysis patient be transferred to the ICU. 02/06/2024: Following her dialysis her shortness of breath had improved significantly: Patient apparently has been require more dialysis than before not a clear whether this is just her body adjusting with mild more dialysis than expected or she is noncompliant with salt and fluid which make her retain more than expected in short Period of time. Again necessity to see dietitian and goal umpire on regular basis also to follow her medication her diet her fluid intake and salt restriction low is expected to be on a more regular basis. Patient be seen Nephrology today no need for dialysis till tomorrow she still apparently scheduled for 3 times a week after this urgent dialysis this time, patient still require O2 at 3 L decreased to 2 L and probably prepare for discharge back to [facility] tomorrow after dialysis with no oxygen. 02/07/2024: The patient is more symptomatic today with Gastrointestinal symptoms including significant nausea not been able to tolerate any food or fluid, still on 4 L of O2 to keep her pulse ox at 98 percentile, she was on BiPAP through the night all night long, her hemoglobin is 7.3 with creatinine at 4.5 to. Chest x- ray does not show any evidence of pulmonary edema the patient still have the extreme high sensitivity for fluid overload and pulmonary edema require dialysis more often. 02/08/2024: She still having significant nausea and vomiting continue to move mor e fluid with hemodialysis, hemoglobin remained 7.5, echocardiogram was performed showed ejection fraction is well-preserved and normal. Chest x-ray shows significant improvement of bilateral central edema with persistent right base acute infiltrate with either atelectasis or pneumonia. Gastroparesis still bad enough that patient could not tolerate any food last 24 hours Reglan will be increased to 5 mg AC meals, still on Zofran on regular basis and on proton pump inhibitor. Consult gastroenterology for possible EGD. 02/09/2024: The patient started having hypoglycemia this morning with blood sugar running 44 and 61 holding her insulin this morning continue D5 continue supportive care for now, her intractable nausea and vomiting has settled some remain on Reglan for now and pantoprazole. We will initiate feeding at this point cautiously. Patient will skip dialysis today for tomorrow. Blood pressure remain a problem patient has been on IV hydralazine along with the clonidine patch because she is able to take her oral meds still trying to avoid BRI and ARB. GI service apparently not available patient be seen general surgery for possible EGD. 02/10/2024: Patient was severely hyperglycemic this morning required 2 different x 8 units of NovoLog to keep her blood sugar below 400 finally she is down to around 200. Her Levemir was held last 48 hours because of the nausea and vomiting with no oral intake. Patient started to eat some yesterday despite the gastroparesis still actively causing intractable nausea. She will be going for EGD this morning and hemodialysis to be done shortly after. Restart her back on her outpatient medication and titrate dose higher hopefully prepare for possible discharge tomorrow or day after tomorrow. Her severe dyspnea and shortness of breath has improved some she still require oxygen but no BiPAP at this point. REVIEW OF SYSTEMS: CONSTITUTIONAL: Well-developed mild respiratory distress, wearing BiPAP. EYES: No icterus sclerae, no conjunctivitis. EARS, NOSE, MOUTH, THROAT, and FACE: No sore throat, lymphadenopathy, carotid bruits or deformity. RESPIRATORY: Positive shortness of breath cough and wheezes. CARDIOVASCULAR: Positive PND orthopnea and palpitation no angina. GASTROINTESTINAL: No Abd pain, Nausea or vomiting, no Diarrhea or constipation, No GI Bleed, no distention or masses. GENITOURINARY: Negative for Hematuria or UTI, no kidney stones. INTEGUMENT/BREAST: Negative for any muscular injury with mild osteoarthritis.. HEMATOLOGIC/LYMPHATIC: Negative for bleed or purpura. MUSCULOSKELTAL: Negative for Myalgia or arthralgia. NEURLOGICAL: No LOC, Sz or syncope, blurred vision dizziness or abnormality.. BEHAVIORAL/PSYCH: Negative. ENDOCRINE: Negative. PHYSICAL EXAMINATION: General Appearance: Alert, cooperative, slightly distressed looks older than her age. Neck HEENT: Supple, no lymphadenopathy, no thyroid enlargement, no carotid bruits. Lungs: Decreased breath sound bilaterally with fine rhonchi positive crackles and wheezes in both lung armendariz. Chest Wall: Decreased expansion with deep inspiration no tenderness and no deformity was found on exam, no costochondral pain or discomfort. Heart: Regular rate and rhythm, S1, S2 positive tachycardia , no murmur, rub or gallop. Back: Symmetric, no curvature, ROM normal, no CVA tenderness. Abdomen: Soft, non-tender, bowel sounds active all four quadrants, no masses, no organomegaly. Extremities: Extremities normal, atraumatic, no cyanosis trace edema. Pulses: 2+ and symmetric. Skin: Skin color, texture, tugor normal, no rashes or lesions. Neurologic: Alert oriented x3 cranial nerves II through XII intact, no motor deficit, no abnormal balance or gait. ASSESSMENT AND PLAN: _Severe dyspnea and shortness of breath mostly from fluid overload related to her dialysis symptoms are much better lately. _Recurrent flash pulmonary edema: Continue to adjust her dialysis hours and frequency. _Urgent hypertension: Blood pressure is better so far been on nifedipine XL 60 mg twice a day along with torsemide, Coreg 25 mg twice a day, hydralazine 100 mg 3 times a day along with her clonidine TTS patch. _End-stage renal disease on hemodialysis initially was done 5 days a week and recently was decreased to 3 days a week. Continue to have ultrafiltration/hemodialysis. _Type 1 diabetes: She is back on Levemir 20 units this morning along with NovoLog 5 units AC meals plus sliding scale. Continue current management titrate dose higher. _ Hypoglycemia: Holding Levemir till tomorrow continue Accu-Chek with sliding scale coverage and patient is on D5 for now till her blood sugars about 120. _Gastroparesis: She is going for EGD this morning Reglan is up 5 mg 3 times a day and still on pantoprazole twice a day. _Congestive heart failure: Patient echocardiogram showed well-preserved ejection fraction patient is having probably diastolic dysfunction on most likely the fluid exchange with related to her dialysis and how rapid were able to exchange fluid while she is in end-stage renal failure. _Hyperlipidemia: Remain on atorvastatin 40 mg a day. _Anemia: Iron deficiency and chronic in origin most likely dialysis related will continue iron as 40 mg weekly. _Recent history of stroke was related to type 1 diabetes along with urgent hypertension she is not on any antiplatelet agent at this point. _Severe gastritis: Required to be on PPI with pantoprazole. _Hypothyroidism: Continue levothyroxine 175 mcg daily. _Seizure: With no seizure activity lately continue Depakote ER 500 mg twice a day. _Chronic pain syndrome: Plain related to lower back pain and recurrent neuropathy pain. Patient can benefit probably from smaller dose of gabapentin in the meanwhile has been using hydrocodone 5/325 mg up to 4 times a day. Discharge planning: After her EGD today patient will have dialysis and if she is doing well in the next 24 hours hopefully can be discharged back to SNF. Objective - Vital Signs Vital signs: Vital Signs Temp 98 F 02/10/24 00:00 Pulse 83 02/10/24 02:00 Resp 16 02/10/24 02:00 BP 118/63 02/10/24 00:00 Pulse Ox 99 02/10/24 00:00 FiO2 50 02/06/24 03:33 Intake & Output 02/09/24 02/09/24 02/10/24 06:59 18:59 06:59 Intake Total 10 360 Output Total 400 Balance 10 360 -400 Weight 71.8 kg Intake: IV 10 Invasive Line 3 10 Oral 360 Output: Urine 400 Other: Voiding Method Bedside Commode Bedside Commode Bedside Commode # Voids 0 0 # Bowel Movements 0 0 - Labs CBC & Chem 7: 02/09/24 09:08 02/09/24 09:08 Labs: Abnormal Lab Results - Last 24 Hours (Table) 02/09/24 02/09/24 02/09/24 Range/Units 06:04 09:08 09:08 RBC 2.30 L (3.80-5.40) m/uL Hgb 7.1 L (11.4-16.0) gm/dL Hct 22.4 L (34.0-46.0) % Sodium 131 L (137-145) mmol/L Chloride 95 L (98-107) mmol/L BUN 40 H (7-17) mg/dL Creatinine 4.29 H (0.52-1.04) mg/dL Glucose 132 H (74-99) mg/dL POC Glucose (mg/dL) 67 L (70-110) mg/dL Calcium 8.1 L (8.4-10.2) mg/dL Total Protein 5.0 L (6.3-8.2) g/dL Albumin 2.9 L (3.5-5.0) g/dL 02/09/24 02/09/24 02/09/24 Range/Units 11:20 16:38 20:22 RBC (3.80-5.40) m/uL Hgb (11.4-16.0) gm/dL Hct (34.0-46.0) % Sodium (137-145) mmol/L Chloride (98-107) mmol/L BUN (7-17) mg/dL Creatinine (0.52-1.04) mg/dL Glucose (74-99) mg/dL POC Glucose (mg/dL) 249 H 208 H 203 H (70-110) mg/dL Calcium (8.4-10.2) mg/dL Total Protein (6.3-8.2) g/dL Albumin (3.5-5.0) g/dL 02/10/24 02/10/24 02/10/24 Range/Units 02:20 03:45 04:59 RBC (3.80-5.40) m/uL Hgb (11.4-16.0) gm/dL Hct (34.0-46.0) % Sodium (137-145) mmol/L Chloride (98-107) mmol/L BUN (7-17) mg/dL Creatinine (0.52-1.04) mg/dL Glucose (74-99) mg/dL POC Glucose (mg/dL) 452 H 486 H 501 H (70-110) mg/dL Calcium (8.4-10.2) mg/dL Total Protein (6.3-8.2) g/dL Albumin (3.5-5.0) g/dL Microbiology - Last 24 Hours (Table) 02/07/24 22:09 Blood Culture - Preliminary Blood
[2024-02-10] MEDS ORDERED: LIDOCAINE 2% (PF) 20 MG/ML 5 ML VIAL ONE (08:43)
[2024-02-10] MEDS ORDERED: PROPOFOL 10 MG/ML 20 ML VIAL IV ONE (08:43)
[2024-02-10] MEDS: SODIUM CHLORIDE 0.9% 500 ML 500 ML IV ONE ×2 (08:49→09:01)
--- NOTE | 2024-02-10 09:00 | P.OP ---
Date of Procedure: 02/10/24 Preoperative Diagnosis: Gastroparesis Postoperative Diagnosis: Gastroparesis Mild antral gastritis Procedure(s) Performed: EGD Anesthesia: MAC Surgeon: Kenny Bella Pathology: other (Antrum) Condition: stable Disposition: PACU Description of Procedure: The patient's placed on the endoscopy table in the lateral position. Received IV sedation. The gastroscope placed oropharynx passed in the esophagus and stomach. Scope was placed through the pylorus. The first and second portion duodenum appeared normal. Scope back the antrum this. Mildly inflamed. Scope summer back the stomach there is a large amount of retained food suggestive gastroparesis. There is no gastrointestinal obstruction. The GE junction was at 40 cm per the distal esophagus. Normal. The proximal esophagus appeared normal. Scope withdrawn for patient.
[2024-02-10 10:10] LABS: Glucose,Whole Blood 137 mg/dL (70-110)
[2024-02-10 10:34] LABS: Basophils # (A) 0.1 k/uL (0-0.2); Basophils % (A) 1 %; Eosinophils # (A) 2.3 k/uL (0-0.7); Eosinophils % (A) 26 %; Lymphocytes # (A) 1.7 k/uL (1.0-4.8); Lymphocytes % (A) 19 %; MCHC 32.5 g/dL (31.0-37.0); MCV 95.3 fL (80.0-100.0); Mean Platelet Volume 8.5; Monocytes # (A) 0.6 k/uL (0-1.0); Monocytes % (A) 7 %; Neutrophils % (A) 46 %; Platelet Count 277 k/uL (150-450); RBC 2.02 m/uL (3.80-5.40); RDW 15.1 % (11.5-15.5); WBC 8.8 k/uL (3.8-10.6)
--- NOTE | 2024-02-10 11:02 | P.PN ---
Subjective Patient is seen in follow-up for end-stage renal disease. She is maintained on hemodialysis on Wednesday schedule. Tolerating dialysis well. Still feels nauseous. Vital signs are stable. General: No acute distress. HEENT: Head exam is unremarkable. On nasal cannula. LUNGS: No audible rhonchi or wheezes. HEART: Rate and Rhythm are regular. ABDOMEN: Nontender. EXTREMITITES: No edema. Objective - Vital Signs Vital signs: Vital Signs Temp 97.8 F 02/10/24 07:54 Pulse 68 02/10/24 09:11 Resp 15 02/10/24 09:11 BP 115/69 02/10/24 09:11 Pulse Ox 97 02/10/24 09:11 FiO2 50 02/06/24 03:33 Intake & Output 02/09/24 02/10/24 02/10/24 18:59 06:59 18:59 Intake Total 360 100 Output Total 400 Balance 360 -400 100 Weight 73.9 kg Intake: IV 100 Oral 360 Output: Urine 400 Other: Voiding Method Bedside Commode Bedside Commode Bedside Commode # Voids 0 # Bowel Movements 0 - Labs CBC & Chem 7: 02/10/24 09:14 02/09/24 09:08 Labs: Abnormal Lab Results - Last 24 Hours (Table) 02/09/24 02/09/24 02/09/24 Range/Units 11:20 16:38 20:22 RBC (3.80-5.40) m/uL Hgb (11.4-16.0) gm/dL Hct (34.0-46.0) % POC Glucose (mg/dL) 249 H 208 H 203 H (70-110) mg/dL 02/10/24 02/10/24 02/10/24 Range/Units 02:20 03:45 04:59 RBC (3.80-5.40) m/uL Hgb (11.4-16.0) gm/dL Hct (34.0-46.0) % POC Glucose (mg/dL) 452 H 486 H 501 H (70-110) mg/dL 02/10/24 02/10/24 02/10/24 Range/Units 05:52 07:57 09:14 RBC 2.02 L (3.80-5.40) m/uL Hgb 6.3 L* (11.4-16.0) gm/dL Hct 19.2 L* (34.0-46.0) % POC Glucose (mg/dL) 424 H 274 H (70-110) mg/dL 02/10/24 Range/Units 10:07 RBC (3.80-5.40) m/uL Hgb (11.4-16.0) gm/dL Hct (34.0-46.0) % POC Glucose (mg/dL) 137 H (70-110) mg/dL Microbiology - Last 24 Hours (Table) 02/07/24 22:09 Blood Culture - Preliminary Blood Assessment and Plan Plan: Assessment: 1. End-stage renal disease maintained on hemodialysis on Wednesday schedule. 2. Hyperkalemia secondary to chronic kidney disease. Improved postdialysis. 3. Anemia of chronic kidney disease. Iron deficiency noted. Receiving IV iron. On Aranesp. Component of acute blood loss. Hemoglobin 6.3 today. EGD showed antral gastritis and gastroparesis. 4. Hypertension with chronic kidney disease. Exacerbated by vomiting. Stable. 5. Diabetes mellitus type I. 6. Volume overload. Improved with ultrafiltration. 7. Acute hypoxic respiratory failure. On nasal cannula. 8. Chronic kidney disease mineral bone disease. Phosphorus level 7.7 dated February 06, 2024. On Renvela. Plan: Currently seen while undergoing hemodialysis. Maintain torsemide. Avoid BRI/ARB due to tendency for hyperkalemia. Follow-up cultures. Schedule to receive blood today. IV DDAVP x 1 dose today.
[2024-02-10 11:03] LABS: HCT 19.2 % (34.0-46.0); HGB 6.3 gm/dL (11.4-16.0)
[2024-02-10 11:05] LABS: African American GFR (CKD) 9 (>60 ml/min/1.73 sqM); Anion Gap 9 mmol/L; Blood Urea Nitrogen 49 mg/dL (7-17); Calcium 7.6 mg/dL (8.4-10.2); Carbon Dioxide 27 mmol/L (22-30); Chloride 93 mmol/L (98-107); Glucose 170 mg/dL (74-99); Non-African American GFR(CKD) 8 (>60 ml/min/1.73 sqM); Sodium 129 mmol/L (137-145)
[2024-02-10 12:08] LABS: Glucose,Whole Blood 86 mg/dL (70-110)
[2024-02-10] MEDS: DESMOPRESSIN ACETATE 20 MCG in SODIUM CHLORIDE 0.9% 50 ML IVPB ONE (13:01)
[2024-02-10 13:57] LABS: Glucose,Whole Blood 96 mg/dL (70-110)
--- NOTE | 2024-02-10 15:41 | P.PN ---
Subjective Progress Note Date: 02/10/24 Principal diagnosis: Acute hypoxic respiratory failure secondary to fluid overload/pulmonary edema/renal failure This is a 34-year-old female patient with acute hypoxic respiratory failure was being seen in the emergency and the patient is currently on a BiPAP pressure of 14 over 6 cm of water on 05 1260% and the patient's chest x-ray showing acute pulmonary edema and volume overload. She has a right IJ dialysis catheter in place. In the emergency, the patient was lethargic and yet arousable and the patient was undergoing hemodialysis. The goal of ultrafiltration is around 4.5 L. The patient has diabetes mellitus and end-stage renal disease and he has been maintained on hemodialysis 4 times a week. The patient was receiving 6 times a week and this was cut down to 4 times a week and this past week she was having some nausea vomiting. He has also had a recent CVA with impaired vision and some right-sided weakness. He has some optic neuritis and she has been e valuated [facility] treated with steroids. WBC count of 14.8, hemoglobin is at 8.6, normal coagulation profile, BUN is 57 with a creatinine of 5.6 and a sodium level of 138. Troponins are negative. proBNP level is 29,400. On today's evaluation of 02/06/2024, the patient is a 47 oxygen nasal cannula and the patient was taken off the BiPAP. The patient underwent hemodialysis yesterday with a total of 4.5 L of fluid removed. No significant respiratory distress. He is calm and comfortable. Hemodynamically stable. White cell count is at 10 with a hemoglobin 7.3 and a platelet count of 319. BUN is 52 with a creatinine of 4.5 and a sodium levels at 134 with a potassium level of 5 .3. The patient did not require ICU stay. He was transferred to telemetry unit. Patient was reevaluated today on 02/07/2024, remains on 4 L nasal cannula, O2 sats 98%, patient is scheduled to have hemodialysis again today. And in the meantime her chest x-ray continues to show evidence of pulmonary edema, patient seems to be calm, not in distress, but she seems to be chronically ill. WBC count is 10.2 hemoglobin 7.3. Potassium is 5.3 BUN is 52 creatinine 4.52 her last chest x-ray from 2 days ago showed evidence of pulmonary edema Patient was reevaluated today on 02/08/2024, patient has been maintained on hemodialysis on Wednesday and Wednesday schedule, seems to be doing much better from the pulmonary perspective, chest x-ray showed dramatic improvement in her fluid overload, and she continues to clinically improve. Reglan was added for nausea and gastroparesis type of symptoms. Her echocardiogram showed preserved ejection fraction labs were reviewed, hemoglobin remains low at 7.5, creatinine 5.07 Reevaluate today on 02/09/2024, patient continues to do well from the pulmonary perspective, significantly better after few rounds of hemodialysis, chest x-ray dramatically improved, patient is now on room air, nonetheless she is having symptoms of nausea and vomiting related to gastroparesis. Being considered for possible EGD tomorrow, labs were reviewed, hemoglobin is 7.1, patient does have chronic anemia BUN is 40 creatinine 4.29 Reevaluate today on 02/10/2024, patient continues to do well pulmonary freed, no cough no wheezing no shortness of breath, patient underwent EGD, and she was found to have mostly gastroparesis. There was evidence of significant amount of retained food in the stomach consistent with gastroparesis, no gastrointestinal obstruction noted. Objective - Vital Signs Vital signs: Vital Signs Temp 98 F 02/10/24 14:30 Pulse 94 02/10/24 14:30 Resp 17 02/10/24 14:30 BP 112/85 02/10/24 14:30 Pulse Ox 97 02/10/24 11:31 FiO2 50 02/06/24 03:33 Intake & Output 02/09/24 02/10/24 02/10/24 18:59 06:59 18:59 Intake Total 360 500 Output Total 400 2400 Balance 360 -400 -1900 Weight 73.9 kg 73.9 kg Intake: IV 100 Oral 360 Blood Product 0 Unit 0 Hemodialysis 400 Output: Urine 400 Hemodialysis 2400 Other: Voiding Method Bedside Commode Bedside Commode Bedside Commode # Voids 0 # Bowel Movements 0 - Exam General: The patient is awake and alert, on room air, undergoing hemodialysis. Not in distress Skin: Skin is warm and dry and no rashes or lesions are noted. Eye: Pupils are equal, round and reactive to light, extra-ocular movements are intact; there is normal conjunctiva bilaterally. Ears, nose, mouth and throat: There are moist mucous membranes and no oral lesions. Neck: The neck is supple, there is no tenderness or JVD. Cardiovascular: There is a regular rate and rhythm. No murmur, rub or gallop is appreciated. Respiratory: Clear breath sounds no rhonchi no wheezes Gastrointestinal: Soft, non-distended, non-tender abdomen without masses or organomegaly noted. There is no rebound or guarding present. Bowel sounds are unremarkable. Back: There is no tenderness to palpation in the midline. There is no obvious deformity. Musculoskeletal: Normal ROM, no tenderness, There is trace of pedal edema. There is no calf tenderness or swelling. No cords were appreciated. Neurological: CN II-XII intact, Cranial nerves III through XII are intact. There are no obvious motor or sensory deficits. Coordination appears grossly intact. Speech is normal. Psychiatric: Cooperative, appropriate mood & affect, normal judgment. - Labs CBC & Chem 7: 02/10/24 09:14 02/10/24 09:14 Labs: Abnormal Lab Results - Last 24 Hours (Table) 02/09/24 02/09/24 02/10/24 Range/Units 16:38 20:22 02:20 RBC (3.80-5.40) m/uL Hgb (11.4-16.0) gm/dL Hct (34.0-46.0) % Eosinophils # (0-0.7) k/uL Sodium (137-145) mmol/L Chloride (98-107) mmol/L BUN (7-17) mg/dL Creatinine (0.52-1.04) mg/dL Glucose (74-99) mg/dL POC Glucose (mg/dL) 208 H 203 H 452 H (70-110) mg/dL Calcium (8.4-10.2) mg/dL Crossmatch 02/10/24 02/10/24 02/10/24 Range/Units 03:45 04:59 05:52 RBC (3.80-5.40) m/uL Hgb (11.4-16.0) gm/dL Hct (34.0-46.0) % Eosinophils # (0-0.7) k/uL Sodium (137-145) mmol/L Chloride (98-107) mmol/L BUN (7-17) mg/dL Creatinine (0.52-1.04) mg/dL Glucose (74-99) mg/dL POC Glucose (mg/dL) 486 H 501 H 424 H (70-110) mg/dL Calcium (8.4-10.2) mg/dL Crossmatch 02/10/24 02/10/24 02/10/24 Range/Units 07:57 09:14 09:14 RBC 2.02 L (3.80-5.40) m/uL Hgb 6.3 L* (11.4-16.0) gm/dL Hct 19.2 L* (34.0-46.0) % Eosinophils # 2.3 H (0-0.7) k/uL Sodium 129 L (137-145) mmol/L Chloride 93 L (98-107) mmol/L BUN 49 H (7-17) mg/dL Creatinine 6.16 H (0.52-1.04) mg/dL Glucose 170 H (74-99) mg/dL POC Glucose (mg/dL) 274 H (70-110) mg/dL Calcium 7.6 L (8.4-10.2) mg/dL Crossmatch 02/10/24 02/10/24 Range/Units 10:07 10:58 RBC (3.80-5.40) m/uL Hgb (11.4-16.0) gm/dL Hct (34.0-46.0) % Eosinophils # (0-0.7) k/uL Sodium (137-145) mmol/L Chloride (98-107) mmol/L BUN (7-17) mg/dL Creatinine (0.52-1.04) mg/dL Glucose (74-99) mg/dL POC Glucose (mg/dL) 137 H (70-110) mg/dL Calcium (8.4-10.2) mg/dL Crossmatch See Detail Microbiology - Last 24 Hours (Table) 02/07/24 22:09 Blood Culture - Preliminary Blood Assessment and Plan Assessment: impression: acute hypoxic respiratory failure secondary to massive fluid overload/pulmonary edema, improving with hemodialysis End-stage renal disease on hemodialysis maintained on hemodialysis Acute hyperkalemia secondary end-stage renal disease Anemia of chronic disease Diabetes mellitus type 1 Recent history of CVA with some residual right-sided weakness Optic neuritis maintain treated with steroids Gastroparesis Recommendation: Continue hemodialysis Titrate oxygen accordingly Chest x-ray yesterday showed dramatic improvement in her fluid overload Continue diuretics EGD report was noted Will continue to follow Continue IV iron Will clear for discharge once she is cleared by other consultants. Time with Patient: Less than 30
[2024-02-10 16:06] LABS: Glucose,Whole Blood 246 mg/dL (70-110)
[2024-02-10 18:09] LABS: Glucose,Whole Blood 292 mg/dL (70-110)
[2024-02-10 20:12] LABS: Glucose,Whole Blood 264 mg/dL (70-110)
[2024-02-11 01:55] LABS: Glucose,Whole Blood 312 mg/dL (70-110)
[2024-02-11 06:03] LABS: Glucose,Whole Blood 488 mg/dL (70-110)
[2024-02-11] MEDS: INSULIN ASPART (NovoLOG) 100 UNIT/ML VIAL SQ SCH (06:41)
[2024-02-11] MEDS: INSULIN DETEMIR (LEVEMIR) 100 UNIT/ML SYR SQ SCH (06:42)
[2024-02-11 08:02] LABS: Glucose,Whole Blood 447 mg/dL (70-110)
[2024-02-11 11:50] LABS: Glucose,Whole Blood 193 mg/dL (70-110)
--- NOTE | 2024-02-11 12:03 | P.PN ---
Subjective Patient is seen in follow-up for end-stage renal disease. She is maintained on hemodialysis on Wednesday schedule. Nausea and vomiting improved. Tolerated 2 L ultrafiltration yesterday. Vital signs are stable. General: No acute distress. HEENT: Head exam is unremarkable. On nasal cannula. LUNGS: No audible rhonchi or wheezes. HEART: Rate and Rhythm are regular. ABDOMEN: Nontender. EXTREMITITES: No edema. Objective - Vital Signs Vital signs: Vital Signs Temp 98.1 F 02/11/24 11:55 Pulse 72 02/11/24 11:55 Resp 16 02/11/24 11:55 BP 119/66 02/11/24 11:55 Pulse Ox 98 02/11/24 11:55 FiO2 50 02/06/24 03:33 Intake & Output 02/10/24 02/11/24 02/11/24 18:59 06:59 18:59 Intake Total 1050 540 118 Output Total 2400 0 Balance -1350 540 118 Weight 73.9 kg 74.1 kg Intake: IV 100 Oral 240 540 118 Blood Product 310 Rc As-1 Unit 310 [id number] Hemodialysis 400 Output: Urine 0 Stool 0 Hemodialysis 2400 Other: Voiding Method Bedside Commode Bedside Commode Bedside Commode # Voids 0 0 # Bowel Movements 0 - Labs CBC & Chem 7: 02/10/24 09:14 02/10/24 09:14 Labs: Abnormal Lab Results - Last 24 Hours (Table) 02/10/24 02/10/24 02/10/24 Range/Units 10:58 16:05 18:07 POC Glucose (mg/dL) 246 H 292 H (70-110) mg/dL Crossmatch See Detail 02/10/24 02/11/24 02/11/24 Range/Units 20:10 01:53 06:03 POC Glucose (mg/dL) 264 H 312 H 488 H (70-110) mg/dL Crossmatch 02/11/24 02/11/24 Range/Units 08:01 11:48 POC Glucose (mg/dL) 447 H 193 H (70-110) mg/dL Crossmatch Microbiology - Last 24 Hours (Table) 02/07/24 22:09 Blood Culture - Preliminary Blood 02/05/24 17:24 Blood Culture - Final Blood 02/09/24 14:30 Blood Culture - Preliminary Blood Assessment and Plan Plan: Assessment: 1. End-stage renal disease maintained on hemodialysis on Wednesday schedule. 2. Hyperkalemia secondary to chronic kidney disease. Improved postdialysis. 3. Anemia of chronic kidney disease. Iron deficiency noted. Receiving IV iron. On Aranesp. Component of acute blood loss. Status post blood tra nsfusion and IV DDAVP this admission. EGD showed antral gastritis and gastroparesis. 4. Hypertension with chronic kidney disease. Exacerbated by vomiting. Stable. 5. Diabetes mellitus type I. 6. Volume overload. Improved with ultrafiltration. 7. Acute hypoxic respiratory failure. On nasal cannula. 8. Chronic kidney disease mineral bone disease. Phosphorus level 7.7 dated February 06, 2024. On Renvela. Plan: Hemodialysis tomorrow. Maintain torsemide. Avoid BRI/ARB due to tendency for hyperkalemia.
[2024-02-11 12:41] LABS: HCT 22.6 % (34.0-46.0); HGB 7.2 gm/dL (11.4-16.0); MCH 30.9 pg (25.0-35.0); MCHC 32.1 g/dL (31.0-37.0); MCV 96.3 fL (80.0-100.0); Mean Platelet Volume 8.5; Platelet Count 288 k/uL (150-450); RBC 2.34 m/uL (3.80-5.40); RDW 14.8 % (11.5-15.5); WBC 8.6 k/uL (3.8-10.6)
[2024-02-11 12:59] LABS: African American GFR (CKD) 15 (>60 ml/min/1.73 sqM); Anion Gap 8 mmol/L; Blood Urea Nitrogen 33 mg/dL (7-17); Calcium 7.8 mg/dL (8.4-10.2); Carbon Dioxide 27 mmol/L (22-30); Chloride 94 mmol/L (98-107); Glucose 228 mg/dL (74-99); Non-African American GFR(CKD) 13 (>60 ml/min/1.73 sqM); Potassium 4.8 mmol/L (3.5-5.1); Sodium 129 mmol/L (137-145)
[2024-02-11 16:59] LABS: Glucose,Whole Blood 59 mg/dL (70-110)
[2024-02-11 17:10] LABS: Glucose,Whole Blood 69 mg/dL (70-110)
[2024-02-11 17:54] LABS: Glucose,Whole Blood 96 mg/dL (70-110)
[2024-02-11 20:36] LABS: Glucose,Whole Blood 117 mg/dL (70-110)
[2024-02-12 00:01] LABS: Glucose,Whole Blood 201 mg/dL (70-110)
--- NOTE | 2024-02-12 06:12 | P.PN ---
Subjective Progress Note Date: 02/11/24 HISTORY OF PRESENT ILLNESS: 34-year-old [address] 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 Patient was not hospitalized time in December 27, 2023 shortly after she left [facility] for complicated hospitalization related to her CVA along with her end-stage renal disease on hemodialysis leaving [facility] at the time she made it home and within 24 hours in the the [facility] with flash pulmonary edema require emergency dialysis with severely urgent hypertension 210/114. The patient was treated and become debilitated afterward require more PT OT and extra help ended up in [facility] for short-term rehab. Has been in [facility] since with multi complication related to. Patient apparently gets rejected from to center in [place] for dialysis for variety of present and continue to go to the dialysis center 5 days a week until this last week when her dialysis will cut down to 3 days a week only and she does dialysis close to 5 hours sometimes. Apparently she called her nurse in [facility] earlier this morning complaining of severe shortness of breath dyspnea and hypoxia not been able to lay down flat and found to have significantly low oxygen level in the 80s with pulse rate in the 110 blood pressure was urgently high above 200 at the time. EMS was called and patient was transferred to the emergency department at [facility] at the time she arrived her blood pressure was 199/ respiration over 20 with pulse oximetry running in the 80s with higher flow oxygen and supportive care brought it up to 99, chest x-ray shows finding consistent with fluid overload and congestive heart failure. EKG showed sinus tachycardia with pulse rate of 113 bpm. Laboratory value with white blood cell 14,000 hemoglobin 8.6 creatinine 5.62 with bun 56 slightly abnormal liver function test proBNP was 29 400. Patient was giving IV Vasotec along with lorazepam and morphine started on nebulizer management settle down with bed. Nephrology were called in for urgent dialysis patient be transferred to the ICU. 02/06/2024: Following her dialysis her shortness of breath had improved significantly: Patient apparently has been require more dialysis than before not a clear whether this is just her body adjusting with mild more dialysis than expected or she is noncompliant with salt and fluid which make her retain more than expected in short Period of time. Again necessity to see dietitian and [employer] deployment lead on regular basis also to follow her medication her diet her fluid intake and salt restriction low is expected to be on a more regular basis. Patient be seen Nephrology today no need for dialysis till tomorrow she still apparently scheduled for 3 times a week after this urgent dialysis this time, patient still require O2 at 3 L decreased to 2 L and probably prepare for discharge back to [facility] tomorrow after dialysis with no oxygen. 02/07/2024: The patient is more symptomatic today with Gastrointestinal symptoms including significant nausea not been able to tolerate any food or fluid, still on 4 L of O2 to keep her pulse ox at 98 percentile, she was on BiPAP through the night all night long, her hemoglobin is 7.3 with creatinine at 4.5 to. Chest x- ray does not show any evidence of pulmonary edema the patient still have the extreme high sensitivity for fluid overload and pulmonary edema require dialysis more often. 02/08/2024: She still having significant nausea and vomiting continue to move mor e fluid with hemodialysis, hemoglobin remained 7.5, echocardiogram was performed showed ejection fraction is well-preserved and normal. Chest x-ray shows significant improvement of bilateral central edema with persistent right base acute infiltrate with either atelectasis or pneumonia. Gastroparesis still bad enough that patient could not tolerate any food last 24 hours Reglan will be increased to 5 mg AC meals, still on Zofran on regular basis and on proton pump inhibitor. Consult gastroenterology for possible EGD. 02/09/2024: The patient started having hypoglycemia this morning with blood sugar running 44 and 61 holding her insulin this morning continue D5 continue supportive care for now, her intractable nausea and vomiting has settled some remain on Reglan for now and pantoprazole. We will initiate feeding at this point cautiously. Patient will skip dialysis today for tomorrow. Blood pressure remain a problem patient has been on IV hydralazine along with the clonidine patch because she is able to take her oral meds still trying to avoid BRI and ARB. GI service apparently not available patient be seen general surgery for possible EGD. 02/10/2024: Patient was severely hyperglycemic this morning required 2 different x 8 units of NovoLog to keep her blood sugar below 400 finally she is down to around 200. Her Levemir was held last 48 hours because of the nausea and vomiting with no oral intake. Patient started to eat some yesterday despite the gastroparesis still actively causing intractable nausea. She will be going for EGD this morning and hemodialysis to be done shortly after. Restart her back on her outpatient medication and titrate dose higher hopefully prepare for possible discharge tomorrow or day after tomorrow. Her severe dyspnea and shortness of breath has improved some she still require oxygen but no BiPAP at this point. 02/11/2024: Patient is resting in bed with her mom on the side of her bed were updated on current condition, patient has a new complaint today with severe pain behind her eye and parable with slight decrease in her vision. Requested ophthalmology consultation at this point knowing that patient had lost her vision in the left side from stroke back in November this year when she was transferred to [facility] at the time. With a new complaint will make follow-up right side at least does not have any problem. The meanwhile patient will continue dialysis. Her gastroparesis is slightly bit better patient is able to tolerate her food to slight degree.Blood sugar is fluctuating still dropping down little bit at the time that she is running much better than before. Again her mobility and ability to ambulate still limited still require more help. Will continue PT OT inpatient plan again to go back to [facility] rehab while she is doing dialysis potential of doing this through the weekend possible if not might not happen until Wednesday. REVIEW OF SYSTEMS: CONSTITUTIONAL: Well-developed mild respiratory distress, wearing BiPAP. EYES: No icterus sclerae, no conjunctivitis. EARS, NOSE, MOUTH, THROAT, and FACE: No sore throat, lymphadenopathy, carotid bruits or deformity. RESPIRATORY: Positive shortness of breath cough and wheezes. CARDIOVASCULAR: Positive PND orthopnea and palpitation no angina. GASTROINTESTINAL: No Abd pain, Nausea or vomiting, no Diarrhea or constipation, No GI Bleed, no distention or masses. GENITOURINARY: Negative for Hematuria or UTI, no kidney stones. INTEGUMENT/BREAST: Negative for any muscular injury with mild osteoarthritis.. HEMATOLOGIC/LYMPHATIC: Negative for bleed or purpura. MUSCULOSKELTAL: Negative for Myalgia or arthralgia. NEURLOGICAL: No LOC, Sz or syncope, blurred vision dizziness or abnormality.. BEHAVIORAL/PSYCH: Negative. ENDOCRINE: Negative. PHYSICAL EXAMINATION: General Appearance: Alert, cooperative, slightly distressed looks older than her age. Neck HEENT: Supple, no lymphadenopathy, no thyroid enlargement, no carotid bruits. Lungs: Decreased breath sound bilaterally with fine rhonchi positive crackles and wheezes in both lung armendariz. Chest Wall: Decreased expansion with deep inspiration no tenderness and no deformity was found on exam, no costochondral pain or discomfort. Heart: Regular rate and rhythm, S1, S2 positive tachycardia , no murmur, rub or gallop. Back: Symmetric, no curvature, ROM normal, no CVA tenderness. Abdomen: Soft, non-tender, bowel sounds active all four quadrants, no masses, no organomegaly. Extremities: Extremities normal, atraumatic, no cyanosis trace edema. Pulses: 2+ and symmetric. Skin: Skin color, texture, tugor normal, no rashes or lesions. Neurologic: Alert oriented x3 cranial nerves II through XII intact, no motor deficit, no abnormal balance or gait. ASSESSMENT AND PLAN: _Severe dyspnea and shortness of breath mostly from fluid overload related to her dialysis symptoms are much better lately. _Recurrent flash pulmonary edema: Continue to adjust her dialysis hours and frequency. _Urgent hypertension: Blood pressure is better so far been on nifedipine XL 60 mg twice a day along with torsemide, Coreg 25 mg twice a day, hydralazine 100 mg 3 times a day along with her clonidine TTS patch. _End-stage renal disease on hemodialysis initially was done 5 days a week and recently was decreased to 3 days a week. Continue to have ultrafiltration/hemodialysis. _New complaint of severe pain and discomfort behind the eye on the right side that patient is blind on the left side from stroke had happened earlier in the year, consult ophthalmology patient might still need an official eye exam at ophthalmology clinic might be a lot better and easier than what she does in the hospital not quite sure the practicality of this at this point at least evaluation why she is in can be beneficial. _Type 1 diabetes: She is back on Levemir 20 units this morning along with NovoLog 5 units AC meals plus sliding scale. Continue current management titrate dose higher. _ Hypoglycemia: Holding Levemir till tomorrow continue Accu-Chek with sliding scale coverage and patient is on D5 for now till her blood sugars about 120. _Gastroparesis: She is going for EGD this morning Reglan is up 5 mg 3 times a day and still on pantoprazole twice a day. _Congestive heart failure: Patient echocardiogram showed well-preserved ejection fraction patient is having probably diastolic dysfunction on most likely the fluid exchange with related to her dialysis and how rapid were able to exchange fluid while she is in end-stage renal failure. _Hyperlipidemia: Remain on atorvastatin 40 mg a day. _Anemia: Iron deficiency and chronic in origin most likely dialysis related will continue iron as 40 mg weekly. _Recent history of stroke was related to type 1 diabetes along with urgent hypertension she is not on any antiplatelet agent at this point. _Severe gastritis: Required to be on PPI with pantoprazole. _Hypothyroidism: Continue levothyroxine 175 mcg daily. _Seizure: With no seizure activity lately continue Depakote ER 500 mg twice a day. _Chronic pain syndrome: Plain related to lower back pain and recurrent neuropathy pain. Patient can benefit probably from smaller dose of gabapentin i n the meanwhile has been using hydrocodone 5/325 mg up to 4 times a day. Prognosis: Fair. Discussion: Mother was on the bedside was asking several questions today about the patient's diet, support with dialysis, support with dietitian and [employer] deployment lead. Also the practicality of patient need a lot more support to be able to carry on probably able to be listed in the transplant for both kidney and pancreas that she will need a lot more family support and help. Information was given to the mother to the best of my knowledge who sadly was not happy with the discussion today the patient is. She had a lot on her hand with her own life beside having to take care of her patient. Any occasion Marita still going probably tomorrow with when she is done with this hospitalization to continue doing physical therapy that would lead the rest of this discussion and extra help to rn social work. Objective - Vital Signs Vital signs: Vital Signs Temp 98.1 F 02/11/24 04:00 Pulse 83 02/11/24 04:00 Resp 18 02/11/24 04:00 BP 131/80 02/11/24 04:00 Pulse Ox 96 02/11/24 04:00 FiO2 50 02/06/24 03:33 Intake & Output 02/10/24 02/10/24 02/11/24 06:59 18:59 06:59 Intake Total 1050 540 Output Total 400 2400 Balance -400 -1350 540 Weight 73.9 kg 73.9 kg Intake: IV 100 Oral 240 540 Blood Product 310 Rc As-1 Unit 310 [id number] Hemodialysis 400 Output: Urine 400 0 Hemodialysis 2400 Other: Voiding Method Bedside Commode Bedside Commode Bedside Commode # Voids 0 0 # Bowel Movements 0 - Labs CBC & Chem 7: 02/11/24 11:02 02/11/24 11:02 Labs: Abnormal Lab Results - Last 24 Hours (Table) 02/10/24 02/10/24 02/10/24 Range/Units 05:52 07:57 09:14 RBC 2.02 L (3.80-5.40) m/uL Hgb 6.3 L* (11.4-16.0) gm/dL Hct 19.2 L* (34.0-46.0) % Eosinophils # 2.3 H (0-0.7) k/uL Sodium (137-145) mmol/L Chloride (98-107) mmol/L BUN (7-17) mg/dL Creatinine (0.52-1.04) mg/dL Glucose (74-99) mg/dL POC Glucose (mg/dL) 424 H 274 H (70-110) mg/dL Calcium (8.4-10.2) mg/dL Crossmatch 02/10/24 02/10/24 02/10/24 Range/Units 09:14 10:07 10:58 RBC (3.80-5.40) m/uL Hgb (11.4-16.0) gm/dL Hct (34.0-46.0) % Eosinophils # (0-0.7) k/uL Sodium 129 L (137-145) mmol/L Chloride 93 L (98-107) mmol/L BUN 49 H (7-17) mg/dL Creatinine 6.16 H (0.52-1.04) mg/dL Glucose 170 H (74-99) mg/dL POC Glucose (mg/dL) 137 H (70-110) mg/dL Calcium 7.6 L (8.4-10.2) mg/dL Crossmatch See Detail 02/10/24 02/10/24 02/10/24 Range/Units 16:05 18:07 20:10 RBC (3.80-5.40) m/uL Hgb (11.4-16.0) gm/dL Hct (34.0-46.0) % Eosinophils # (0-0.7) k/uL Sodium (137-145) mmol/L Chloride (98-107) mmol/L BUN (7-17) mg/dL Creatinine (0.52-1.04) mg/dL Glucose (74-99) mg/dL POC Glucose (mg/dL) 246 H 292 H 264 H (70-110) mg/dL Calcium (8.4-10.2) mg/dL Crossmatch 02/11/24 Range/Units 01:53 RBC (3.80-5.40) m/uL Hgb (11.4-16.0) gm/dL Hct (34.0-46.0) % Eosinophils # (0-0.7) k/uL Sodium (137-145) mmol/L Chloride (98-107) mmol/L BUN (7-17) mg/dL Creatinine (0.52-1.04) mg/dL Glucose (74-99) mg/dL POC Glucose (mg/dL) 312 H (70-110) mg/dL Calcium (8.4-10.2) mg/dL Crossmatch Microbiology - Last 24 Hours (Table) 02/07/24 22:09 Blood Culture - Preliminary Blood 02/05/24 17:24 Blood Culture - Final Blood 02/09/24 14:30 Blood Culture - Preliminary Blood
[2024-02-12 06:16] LABS: Glucose,Whole Blood 452 mg/dL (70-110)
[2024-02-12] MEDS ORDERED: DARBEPOETIN ALFA 40 MCG/0.4 ML SYRINGE SQ SCH (09:00)
--- NOTE | 2024-02-12 10:31 | P.PN ---
Subjective Progress Note Date: 02/12/24 HISTORY OF PRESENT ILLNESS: 34-year-old [address] 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 Patient was not hospitalized time in December 27, 2023 shortly after she left [facility] for complicated hospitalization related to her CVA along with her end-stage renal disease on hemodialysis leaving [facility] at the time she made it home and within 24 hours in the [facility] and [facility] with flash pulmonary edema require emergency dialysis with severely urgent hypertension 210/114. The patient was treated and become debilitated afterward require more PT OT and extra help ended up in [facility] for short-term rehab. Has been in [facility] since with multi complication related to. Patient apparently gets rejected from to center in [place] for dialysis for variety of present and continue to go to the dialysis center 5 days a week until this last week when her dialysis will cut down to 3 days a week only and she does dialysis close to 5 hours sometimes. Apparently she called her nurse in [facility] earlier this morning complaining of severe shortness of breath dyspnea and hypoxia not been able to lay down flat and found to have significantly low oxygen level in the 80s with pulse rate in the 110 blood pressure was urgently high above 200 at the time. EMS was called and patient was transferred to the emergency department at [facility] at the time she arrived her blood pressure was 199/ respiration over 20 with pulse oximetry running in the 80s with higher flow oxygen and supportive care brought it up to 99, chest x-ray shows finding consistent with fluid overload and congestive heart failure. EKG showed sinus tachycardia with pulse rate of 113 bpm. Laboratory value with white blood cell 14,000 hemoglobin 8.6 creatinine 5.62 with bun 56 slightly abnormal liver function test proBNP was 29 400. Patient was giving IV Vasotec along with lorazepam and morphine started on nebulizer management settle down with bed. Nephrology were called in for urgent dialysis patient be transferred to the ICU. 02/06/2024: Following her dialysis her shortness of breath had improved significantly: Patient apparently has been require more dialysis than before not a clear whether this is just her body adjusting with mild more dialysis than expected or she is noncompliant with salt and fluid which make her retain more than expected in short Period of time. Again necessity to see dietitian and capacitor repairer on regular basis also to follow her medication her diet her fluid intake and salt restriction low is expected to be on a more regular basis. Patient be seen Nephrology today no need for dialysis till tomorrow she still apparently scheduled for 3 times a week after this urgent dialysis this time, patient still require O2 at 3 L decreased to 2 L and probably prepare for discharge back to [facility] tomorrow after dialysis with no oxygen. 02/07/2024: The patient is more symptomatic today with Gastrointestinal symptoms including significant nausea not been able to tolerate any food or fluid, still on 4 L of O2 to keep her pulse ox at 98 percentile, she was on BiPAP through the night all night long, her hemoglobin is 7.3 with creatinine at 4.5 to. Chest x- ray does not show any evidence of pulmonary edema the patient still have the extreme high sensitivity for fluid overload and pulmonary edema require dialysis more often. 02/08/2024: She still having significant nausea and vomiting continue to move mor e fluid with hemodialysis, hemoglobin remained 7.5, echocardiogram was performed showed ejection fraction is well-preserved and normal. Chest x-ray shows significant improvement of bilateral central edema with persistent right base acute infiltrate with either atelectasis or pneumonia. Gastroparesis still bad enough that patient could not tolerate any food last 24 hours Reglan will be increased to 5 mg AC meals, still on Zofran on regular basis and on proton pump inhibitor. Consult gastroenterology for possible EGD. 02/09/2024: The patient started having hypoglycemia this morning with blood sugar running 44 and 61 holding her insulin this morning continue D5 continue supportive care for now, her intractable nausea and vomiting has settled some remain on Reglan for now and pantoprazole. We will initiate feeding at this point cautiously. Patient will skip dialysis today for tomorrow. Blood pressure remain a problem patient has been on IV hydralazine along with the clonidine patch because she is able to take her oral meds still trying to avoid BRI and ARB. GI service apparently not available patient be seen general surgery for possible EGD. 02/10/2024: Patient was severely hyperglycemic this morning required 2 different x 8 units of NovoLog to keep her blood sugar below 400 finally she is down to around 200. Her Levemir was held last 48 hours because of the nausea and vomiting with no oral intake. Patient started to eat some yesterday despite the gastroparesis still actively causing intractable nausea. She will be going for EGD this morning and hemodialysis to be done shortly after. Restart her back on her outpatient medication and titrate dose higher hopefully prepare for possible discharge tomorrow or day after tomorrow. Her severe dyspnea and shortness of breath has improved some she still require oxygen but no BiPAP at this point. 02/11/2024: Patient is resting in bed with her mom on the side of her bed were updated on current condition, patient has a new complaint today with severe pain behind her eye and parable with slight decrease in her vision. Requested ophthalmology consultation at this point knowing that patient had lost her vision in the left side from stroke back in November this year when she was transferred to [facility] at the time. With a new complaint will make follow-up right side at least does not have any problem. The meanwhile patient will continue dialysis. Her gastroparesis is slightly bit better patient is able to tolerate her food to slight degree.Blood sugar is fluctuating still dropping down little bit at the time that she is running much better than before. Again her mobility and ability to ambulate still limited still require more help. Will continue PT OT inpatient plan again to go back to [facility] rehab while she is doing dialysis potential of doing this through the weekend possible if not might not happen until Wednesday. 02/12/2024: She is having dialysis today, gastroparesis slightly bit better, her significant decrease in sight in the right eye still a problem still waiting for ophthalmology to see her. Her hemoglobin is up to 7.1 after 1 unit of blood transfusion. Blood sugars still fluctuate slight bit she had low reading early and she is up to 400 slight adjustment on her sliding scale along with a long- acting insulin for now. See if possible to get patient out of bed to do PT OT and prepare hopefully for being discharged to rehab on Wednesday. REVIEW OF SYSTEMS: CONSTITUTIONAL: Well-developed mild respiratory distress, wearing BiPAP. EYES: No icterus sclerae, no conjunctivitis. EARS, NOSE, MOUTH, THROAT, and FACE: No sore throat, lymphadenopathy, carotid bruits or deformity. RESPIRATORY: Positive shortness of breath cough and wheezes. CARDIOVASCULAR: Positive PND orthopnea and palpitation no angina. GASTROINTESTINAL: No Abd pain, Nausea or vomiting, no Diarrhea or constipation, No GI Bleed, no distention or masses. GENITOURINARY: Negative for Hematuria or UTI, no kidney stones. INTEGUMENT/BREAST: Negative for any muscular injury with mild osteoarthritis.. HEMATOLOGIC/LYMPHATIC: Negative for bleed or purpura. MUSCULOSKELTAL: Negative for Myalgia or arthralgia. NEURLOGICAL: No LOC, Sz or syncope, blurred vision dizziness or abnormality.. BEHAVIORAL/PSYCH: Negative. ENDOCRINE: Negative. PHYSICAL EXAMINATION: General Appearance: Alert, cooperative, slightly distressed looks older than her age. Neck HEENT: Supple, no lymphadenopathy, no thyroid enlargement, no carotid bruits. Lungs: Decreased breath sound bilaterally with fine rhonchi positive crackles and wheezes in both lung armendariz. Chest Wall: Decreased expansion with deep inspiration no tenderness and no deformity was found on exam, no costochondral pain or discomfort. Heart: Regular rate and rhythm, S1, S2 positive tachycardia , no murmur, rub or gallop. Back: Symmetric, no curvature, ROM normal, no CVA tenderness. Abdomen: Soft, non-tender, bowel sounds active all four quadrants, no masses, no organomegaly. Extremities: Extremities normal, atraumatic, no cyanosis trace edema. Pulses: 2+ and symmetric. Skin: Skin color, texture, tugor normal, no rashes or lesions. Neurologic: Alert oriented x3 cranial nerves II through XII intact, no motor deficit, no abnormal balance or gait. ASSESSMENT AND PLAN: _Severe dyspnea and shortness of breath mostly from fluid overload related to her dialysis symptoms are much better lately. _Recurrent flash pulmonary edema: Continue to adjust her dialysis hours and frequency. _Urgent hypertension: Blood pressure is better so far been on nifedipine XL 60 mg twice a day along with torsemide, Coreg 25 mg twice a day, hydralazine 100 mg 3 times a day along with her clonidine TTS patch. _End-stage renal disease on hemodialysis initially was done 5 days a week and recently was decreased to 3 days a week. Continue to have ultrafiltration/hemo dialysis. _New complaint of severe pain and discomfort behind the eye on the right side that patient is blind on the left side from stroke had happened earlier in the year, consult ophthalmology patient might still need an official eye exam at ophthalmology clinic might be a lot better and easier than what she does in the hospital not quite sure the practicality of this at this point at least kandis cannon why she is in can be beneficial. _Type 1 diabetes: She is back on Levemir 20 units this morning along with NovoLog 5 units AC meals plus sliding scale. Continue current management titrate dose higher. _Severe hyper/hypoglycemia: Remain on Levemir up to 25 units daily still on NovoLog 7 units AC meals plus sliding scales slightly but still getting her in and out hypo-/hyperglycemia stage patient better from with management when she leaves the hospital is to go back on insulin pump and to go back to see her supervisory clerk more regularly. _Gastroparesis: She is going for EGD this morning Reglan is up 5 mg 3 times a day and still on pantoprazole twice a day. Slightly bit better with PPI she is not throwing up anymore. _Congestive heart failure: Patient echocardiogram showed well-preserved ejection fraction patient is having probably diastolic dysfunction on most likely the f luid exchange with related to her dialysis and how rapid were able to exchange fluid while she is in end-stage renal failure. _Hyperlipidemia: Remain on atorvastatin 40 mg a day. _Anemia: Iron deficiency and chronic in origin most likely dialysis related will continue iron as 40 mg weekly. _Recent history of stroke was related to type 1 diabetes along with urgent hypertension she is not on any antiplatelet agent at this point. _Severe gastritis: Required to be on PPI with pantoprazole. _Hypothyroidism: Continue levothyroxine 175 mcg daily. _Seizure: With no seizure activity lately continue Depakote ER 500 mg twice a day. _Chronic pain syndrome: Plain related to lower back pain and recurrent neuropathy pain. Patient can benefit probably from smaller dose of gabapentin in the meanwhile has been using hydrocodone 5/325 mg up to 4 times a day. Prognosis: Fair. Discussion: She is doing slightly better today except slight challenge of the blood pressure and blood sugar she is doing dialysis and hopefully prepare for going to rehab on Wednesday. Objective - Vital Signs Vital signs: Vital Signs Temp 98.5 F 02/12/24 04:00 Pulse 78 02/12/24 04:00 Resp 19 02/12/24 04:00 BP 166/89 02/12/24 04:00 Pulse Ox 99 02/12/24 04:00 FiO2 50 02/06/24 03:33 Intake & Output 02/11/24 02/11/24 02/12/24 06:59 18:59 06:59 Intake Total 540 838 Output Total 350 Balance 540 488 Weight 74.1 kg 74.1 kg Intake: Oral 540 838 Output: Urine 350 Stool 0 Other: Voiding Method Bedside Commode Bedside Commode Bedside Commode # Voids 0 0 0 # Bowel Movements 0 1 - Labs CBC & Chem 7: 02/11/24 11:02 02/11/24 11:02 Labs: Abnormal Lab Results - Last 24 Hours (Table) 02/11/24 02/11/24 02/11/24 Range/Units 08:01 11:02 11:02 RBC 2.34 L (3.80-5.40) m/uL Hgb 7.2 L (11.4-16.0) gm/dL Hct 22.6 L (34.0-46.0) % Sodium 129 L (137-145) mmol/L Chloride 94 L (98-107) mmol/L BUN 33 H (7-17) mg/dL Creatinine 4.26 H (0.52-1.04) mg/dL Glucose 228 H (74-99) mg/dL POC Glucose (mg/dL) 447 H (70-110) mg/dL Calcium 7.8 L (8.4-10.2) mg/dL 02/11/24 02/11/24 02/11/24 Range/Units 11:48 16:52 17:09 RBC (3.80-5.40) m/uL Hgb (11.4-16.0) gm/dL Hct (34.0-46.0) % Sodium (137-145) mmol/L Chloride (98-107) mmol/L BUN (7-17) mg/dL Creatinine (0.52-1.04) mg/dL Glucose (74-99) mg/dL POC Glucose (mg/dL) 193 H 59 L 69 L (70-110) mg/dL Calcium (8.4-10.2) mg/dL 02/11/24 02/12/24 Range/Units 20:32 00:00 RBC (3.80-5.40) m/uL Hgb (11.4-16.0) gm/dL Hct (34.0-46.0) % Sodium (137-145) mmol/L Chloride (98-107) mmol/L BUN (7-17) mg/dL Creatinine (0.52-1.04) mg/dL Glucose (74-99) mg/dL POC Glucose (mg/dL) 117 H 201 H (70-110) mg/dL Calcium (8.4-10.2) mg/dL Microbiology - Last 24 Hours (Table) 02/09/24 14:30 Blood Culture - Preliminary Blood 02/07/24 22:09 Blood Culture - Preliminary Blood
[2024-02-12 11:45] LABS: Glucose,Whole Blood 154 mg/dL (70-110)
--- NOTE | 2024-02-12 12:02 | P.PN ---
Subjective patient is seen on hemodialysis. Tolerating her treatment well. Goal UF about 2.5 L. Complaining off nausea Objective - Vital Signs Vital signs: Vital Signs Temp 98.2 F 02/12/24 08:28 Pulse 80 02/12/24 11:11 Resp 17 02/12/24 11:11 BP 154/89 02/12/24 11:11 Pulse Ox 99 02/12/24 04:00 FiO2 50 02/06/24 03:33 Intake & Output 02/11/24 02/12/24 02/12/24 18:59 06:59 18:59 Intake Total 838 956 Output Total 350 Balance 488 956 Weight 74.1 kg 74.5 kg Intake: Oral 838 956 Output: Urine 350 Stool 0 Other: Voiding Method Bedside Commode Bedside Commode Bedside Commode # Voids 0 0 # Bowel Movements 1 - Exam patient is awake, comfortable, no acute distress Examination of the heart S1 and S2 Examination of the lungs decreased breath sounds at the bases Abdomen is soft nontender Examination of lower extremities shows no edema METAL SMELTER exam grossly intact - Labs CBC & Chem 7: 02/11/24 11:02 02/11/24 11:02 Labs: Abnormal Lab Results - Last 24 Hours (Table) 02/11/24 02/11/24 02/11/24 Range/Units 11:02 11:02 16:52 RBC 2.34 L (3.80-5.40) m/uL Hgb 7.2 L (11.4-16.0) gm/dL Hct 22.6 L (34.0-46.0) % Sodium 129 L (137-145) mmol/L Chloride 94 L (98-107) mmol/L BUN 33 H (7-17) mg/dL Creatinine 4.26 H (0.52-1.04) mg/dL Glucose 228 H (74-99) mg/dL POC Glucose (mg/dL) 59 L (70-110) mg/dL Calcium 7.8 L (8.4-10.2) mg/dL 02/11/24 02/11/24 02/12/24 Range/Units 17:09 20:32 00:00 RBC (3.80-5.40) m/uL Hgb (11.4-16.0) gm/dL Hct (34.0-46.0) % Sodium (137-145) mmol/L Chloride (98-107) mmol/L BUN (7-17) mg/dL Creatinine (0.52-1.04) mg/dL Glucose (74-99) mg/dL POC Glucose (mg/dL) 69 L 117 H 201 H (70-110) mg/dL Calcium (8.4-10.2) mg/dL 02/12/24 02/12/24 Range/Units 06:14 11:43 RBC (3.80-5.40) m/uL Hgb (11.4-16.0) gm/dL Hct (34.0-46.0) % Sodium (137-145) mmol/L Chloride (98-107) mmol/L BUN (7-17) mg/dL Creatinine (0.52-1.04) mg/dL Glucose (74-99) mg/dL POC Glucose (mg/dL) 452 H 154 H (70-110) mg/dL Calcium (8.4-10.2) mg/dL Microbiology - Last 24 Hours (Table) 02/09/24 14:30 Blood Culture - Preliminary Blood Assessment and Plan Assessment: 1. End-stage renal disease maintained on hemodialysis on Wednesday schedule. 2. Hyperkalemia secondary to chronic kidney disease. Improved postdialysis. 3. Anemia of chronic kidney disease. Iron deficiency noted. Receiving IV iron. On Aranesp. Component of acute blood loss. Status post blood transfusion and IV DDAVP this admission. EGD showed antral gastritis and gastroparesis. 4. Hypertension with chronic kidney disease. Exacerbated by vomiting. Stable. 5. Diabetes mellitus type I. 6. Volume overload. Improved with ultrafiltration. 7. Acute hypoxic respiratory failure. On nasal cannula. 8. Chronic kidney disease mineral bone disease. Phosphorus level 7.7 dated February 06, 2024. On Renvela. 9. Mild antral gastritis noted on EGD. Component of gastroparesis present as well. Patient is maintained on Reglan. Plan: continue hemodialysis on a Wednesday schedule. Continue to assess for need for extra treatments for volume overload. continue Reglan for gastroparesis
[2024-02-12] MEDS: diphenhydrAMINE 50 MG/ML 1 ML VIAL IVP PRN (13:59)
--- NOTE | 2024-02-12 14:04 | P.PN ---
Subjective Progress Note Date: 02/12/24 Principal diagnosis: Acute hypoxic respiratory failure secondary to fluid overload/pulmonary edema/renal failure This is a 34-year-old female patient with acute hypoxic respiratory failure was being seen in the emergency and the patient is currently on a BiPAP pressure of 14 over 6 cm of water on 05 1260% and the patient's chest x-ray showing acute pulmonary edema and volume overload. She has a right IJ dialysis catheter in place. In the emergency, the patient was lethargic and yet arousable and the patient was undergoing hemodialysis. The goal of ultrafiltration is around 4.5 L. The patient has diabetes mellitus and end-stage renal disease and he has been maintained on hemodialysis 4 times a week. The patient was receiving 6 times a week and this was cut down to 4 times a week and this past week she was having some nausea vomiting. He has also had a recent CVA with impaired vision and some right-sided weakness. He has some optic neuritis and she has been e valuated [facility] treated with steroids. WBC count of 14.8, hemoglobin is at 8.6, normal coagulation profile, BUN is 57 with a creatinine of 5.6 and a sodium level of 138. Troponins are negative. proBNP level is 29,400. On today's evaluation of 02/06/2024, the patient is a 47 oxygen nasal cannula and the patient was taken off the BiPAP. The patient underwent hemodialysis yesterday with a total of 4.5 L of fluid removed. No significant respiratory distress. He is calm and comfortable. Hemodynamically stable. White cell count is at 10 with a hemoglobin 7.3 and a platelet count of 319. BUN is 52 with a creatinine of 4.5 and a sodium levels at 134 with a potassium level of 5 .3. The patient did not require ICU stay. He was transferred to telemetry unit. Patient was reevaluated today on 02/07/2024, remains on 4 L nasal cannula, O2 sats 98%, patient is scheduled to have hemodialysis again today. And in the meantime her chest x-ray continues to show evidence of pulmonary edema, patient seems to be calm, not in distress, but she seems to be chronically ill. WBC count is 10.2 hemoglobin 7.3. Potassium is 5.3 BUN is 52 creatinine 4.52 her last chest x-ray from 2 days ago showed evidence of pulmonary edema Patient was reevaluated today on 02/08/2024, patient has been maintained on hemodialysis on Wednesday and Wednesday schedule, seems to be doing much better from the pulmonary perspective, chest x-ray showed dramatic improvement in her fluid overload, and she continues to clinically improve. Reglan was added for nausea and gastroparesis type of symptoms. Her echocardiogram showed preserved ejection fraction labs were reviewed, hemoglobin remains low at 7.5, creatinine 5.07 Reevaluate today on 02/09/2024, patient continues to do well from the pulmonary perspective, significantly better after few rounds of hemodialysis, chest x-ray dramatically improved, patient is now on room air, nonetheless she is having symptoms of nausea and vomiting related to gastroparesis. Being considered for possible EGD tomorrow, labs were reviewed, hemoglobin is 7.1, patient does have chronic anemia BUN is 40 creatinine 4.29 Reevaluate today on 02/10/2024, patient continues to do well pulmonary freed, no cough no wheezing no shortness of breath, patient underwent EGD, and she was found to have mostly gastroparesis. There was evidence of significant amount of retained food in the stomach consistent with gastroparesis, no gastrointestinal obstruction noted. Reevaluate today on 02/12/24, patient is doing well, patient is asymptomatic except for intermittent episodes of nausea, no shortness of breath no cough no wheezing Objective - Vital Signs Vital signs: Vital Signs Temp 36.8 F L 02/12/24 13:36 Pulse 86 02/12/24 12:54 Resp 18 02/12/24 13:36 BP 166/70 02/12/24 13:36 Pulse Ox 99 02/12/24 04:00 FiO2 50 02/06/24 03:33 Intake & Output 02/11/24 02/12/24 02/12/24 18:59 06:59 18:59 Intake Total 838 1896 Output Total 350 2400 Balance 488 -504 Weight 74.1 kg 74.5 kg Intake: Oral 838 1496 Hemodialysis 400 Output: Urine 350 Stool 0 Hemodialysis 2400 Other: Voiding Method Bedside Commode Bedside Commode Bedside Commode # Voids 0 0 # Bowel Movements 1 - Exam General: The patient is awake and alert, on room air, undergoing hemodialysis. Not in distress Skin: Skin is warm and dry and no rashes or lesions are noted. Eye: Pupils are equal, round and reactive to light, extra-ocular movements are intact; there is normal conjunctiva bilaterally. Ears, nose, mouth and throat: There are moist mucous membranes and no oral lesions. Neck: The neck is supple, there is no tenderness or JVD. Cardiovascular: There is a regular rate and rhythm. No murmur, rub or gallop is appreciated. Respiratory: Clear breath sounds no rhonchi no wheezes Gastrointestinal: Soft, non-distended, non-tender abdomen without masses or organomegaly noted. There is no rebound or guarding present. Bowel sounds are unremarkable. Back: There is no tenderness to palpation in the midline. There is no obvious deformity. Musculoskeletal: Normal ROM, no tenderness, There is trace of pedal edema. There is no calf tenderness or swelling. No cords were appreciated. Neurological: CN II-XII intact, Cranial nerves III through XII are intact. There are no obvious motor or sensory deficits. Coordination appears grossly intact. Speech is normal. Psychiatric: Cooperative, appropriate mood & affect, normal judgment. - Labs CBC & Chem 7: 02/11/24 11:02 02/11/24 11:02 Labs: Abnormal Lab Results - Last 24 Hours (Table) 02/11/24 02/11/24 02/11/24 Range/Units 16:52 17:09 20:32 POC Glucose (mg/dL) 59 L 69 L 117 H (70-110) mg/dL 02/12/24 02/12/24 02/12/24 Range/Units 00:00 06:14 11:43 POC Glucose (mg/dL) 201 H 452 H 154 H (70-110) mg/dL Microbiology - Last 24 Hours (Table) 02/09/24 14:30 Blood Culture - Preliminary Blood Assessment and Plan Assessment: impression: acute hypoxic respiratory failure secondary to massive fluid overload/pulmonary edema, improving with hemodialysis End-stage renal disease on hemodialysis maintained on hemodialysis Acute hyperkalemia secondary end-stage renal disease Anemia of chronic disease Diabetes mellitus type 1 Recent history of CVA with some residual right-sided weakness Optic neuritis maintain treated with steroids Gastroparesis Recommendation: Continue hemodialysis EGD report was noted Continue IV iron Consider discharge planning in the next few days Time with Patient: Less than 30
--- NOTE | 2024-02-12 14:07 | P.PN ---
Subjective Progress Note Date: 02/11/24 Principal diagnosis: Acute hypoxic respiratory failure secondary to fluid overload/pulmonary edema/renal failure This is a 34-year-old female patient with acute hypoxic respiratory failure was being seen in the emergency and the patient is currently on a BiPAP pressure of 14 over 6 cm of water on 05 1260% and the patient's chest x-ray showing acute pulmonary edema and volume overload. She has a right IJ dialysis catheter in place. In the emergency, the patient was lethargic and yet arousable and the patient was undergoing hemodialysis. The goal of ultrafiltration is around 4.5 L. The patient has diabetes mellitus and end-stage renal disease and he has been maintained on hemodialysis 4 times a week. The patient was receiving 6 times a week and this was cut down to 4 times a week and this past week she was having some nausea vomiting. He has also had a recent CVA with impaired vision and some right-sided weakness. He has some optic neuritis and she has been e valuated [facility] treated with steroids. WBC count of 14.8, hemoglobin is at 8.6, normal coagulation profile, BUN is 57 with a creatinine of 5.6 and a sodium level of 138. Troponins are negative. proBNP level is 29,400. On today's evaluation of 02/06/2024, the patient is a 47 oxygen nasal cannula and the patient was taken off the BiPAP. The patient underwent hemodialysis yesterday with a total of 4.5 L of fluid removed. No significant respiratory distress. He is calm and comfortable. Hemodynamically stable. White cell count is at 10 with a hemoglobin 7.3 and a platelet count of 319. BUN is 52 with a creatinine of 4.5 and a sodium levels at 134 with a potassium level of 5 .3. The patient did not require ICU stay. He was transferred to telemetry unit. Patient was reevaluated today on 02/07/2024, remains on 4 L nasal cannula, O2 sats 98%, patient is scheduled to have hemodialysis again today. And in the meantime her chest x-ray continues to show evidence of pulmonary edema, patient seems to be calm, not in distress, but she seems to be chronically ill. WBC count is 10.2 hemoglobin 7.3. Potassium is 5.3 BUN is 52 creatinine 4.52 her last chest x-ray from 2 days ago showed evidence of pulmonary edema Patient was reevaluated today on 02/08/2024, patient has been maintained on hemodialysis on Wednesday and Wednesday schedule, seems to be doing much better from the pulmonary perspective, chest x-ray showed dramatic improvement in her fluid overload, and she continues to clinically improve. Reglan was added for nausea and gastroparesis type of symptoms. Her echocardiogram showed preserved ejection fraction labs were reviewed, hemoglobin remains low at 7.5, creatinine 5.07 Reevaluate today on 02/09/2024, patient continues to do well from the pulmonary perspective, significantly better after few rounds of hemodialysis, chest x-ray dramatically improved, patient is now on room air, nonetheless she is having symptoms of nausea and vomiting related to gastroparesis. Being considered for possible EGD tomorrow, labs were reviewed, hemoglobin is 7.1, patient does have chronic anemia BUN is 40 creatinine 4.29 Reevaluate today on 02/10/2024, patient continues to do well pulmonary freed, no cough no wheezing no shortness of breath, patient underwent EGD, and she was found to have mostly gastroparesis. There was evidence of significant amount of retained food in the stomach consistent with gastroparesis, no gastrointestinal obstruction noted. Reevaluate today on 02/10/30, patient is basically about the same, continues to have intermittent episodes of nausea, vomiting, dry heaves, this is all related to her severe gastroparesis. Pulmonary freed the patient improved significantly with hemodialysis. And she continues to have hemodialysis on a regular basis. No cough no wheezing no shortness of breath no chest pain no fever no chills no hemoptysis Objective - Vital Signs Vital signs: Vital Signs Temp 36.8 F L 02/12/24 13:36 Pulse 86 02/12/24 12:54 Resp 18 02/12/24 13:36 BP 166/70 02/12/24 13:36 Pulse Ox 99 02/12/24 04:00 FiO2 50 02/06/24 03:33 Intake & Output 02/11/24 02/12/24 02/12/24 18:59 06:59 18:59 Intake Total 838 1896 Output Total 350 2400 Balance 488 -504 Weight 74.1 kg 74.5 kg Intake: Oral 838 1496 Hemodialysis 400 Output: Urine 350 Stool 0 Hemodialysis 2400 Other: Voiding Method Bedside Commode Bedside Commode Bedside Commode # Voids 0 0 # Bowel Movements 1 - Exam General: Revealed 34-year-old female in no distress Skin: Skin is warm and dry and no rashes or lesions are noted. Eye: Pupils are equal, round and reactive to light, extra-ocular movements are intact; there is normal conjunctiva bilaterally. Ears, nose, mouth and throat: There are moist mucous membranes and no oral lesions. Neck: The neck is supple, there is no tenderness or JVD. Cardiovascular: There is a regular rate and rhythm. No murmur, rub or gallop is appreciated. Respiratory: Clear breath sounds no rhonchi no wheezes Gastrointestinal: Soft, non-distended, non-tender abdomen without masses or organomegaly noted. There is no rebound or guarding present. Bowel sounds are unremarkable. Musculoskeletal: Deformities no limitation range of motion Neurological: CN II-XII intact, Cranial nerves III through XII are intact. There are no obvious motor or sensory deficits. Coordination appears grossly intact. Speech is normal. Psychiatric: Cooperative, appropriate mood & affect, normal judgment. - Labs CBC & Chem 7: 02/11/24 11:02 02/11/24 11:02 Labs: Abnormal Lab Results - Last 24 Hours (Table) 02/11/24 02/11/24 02/11/24 Range/Units 16:52 17:09 20:32 POC Glucose (mg/dL) 59 L 69 L 117 H (70-110) mg/dL 02/12/24 02/12/24 02/12/24 Range/Units 00:00 06:14 11:43 POC Glucose (mg/dL) 201 H 452 H 154 H (70-110) mg/dL Microbiology - Last 24 Hours (Table) 02/09/24 14:30 Blood Culture - Preliminary Blood Assessment and Plan Assessment: impression: acute hypoxic respiratory failure secondary to massive fluid overload/pulmonary edema, improving with hemodialysis End-stage renal disease on hemodialysis maintained on hemodialysis Acute hyperkalemia secondary end-stage renal disease Anemia of chronic disease Diabetes mellitus type 1 Recent history of CVA with some residual right-sided weakness Optic neuritis maintain treated with steroids Gastroparesis/severe with severe symptoms of nausea and vomiting. Recommendation: Continue present supportive care measures Continue treatment of her diabetes and her electrolyte imbalance Continue cardiac meds Continue Depakote Continue hydralazine Continue insulin Resume levothyroxine Continue hemodialysis EGD report was noted Continue IV iron Consider discharge planning in the next few days Time with Patient: Less than 30
[2024-02-12 16:32] LABS: Glucose,Whole Blood 182 mg/dL (70-110)
[2024-02-12 20:06] LABS: Glucose,Whole Blood 202 mg/dL (70-110)
[2024-02-13 01:49] LABS: Glucose,Whole Blood 395 mg/dL (70-110)
[2024-02-13 05:57] LABS: Glucose,Whole Blood 536 mg/dL (70-110)
[2024-02-13] MEDS: INSULIN ASPART (NovoLOG) 100 UNIT/ML VIAL SQ ONE (06:55)
[2024-02-13 08:36] LABS: Basophils # (A) 0.1 k/uL (0-0.2); Basophils % (A) 1 %; Eosinophils # (A) 2.6 k/uL (0-0.7); Eosinophils % (A) 23 %; HGB 8.1 gm/dL (11.4-16.0); Hypochromasia Slight; Lymphocytes # (A) 1.9 k/uL (1.0-4.8); Lymphocytes % (A) 16 %; MCH 30.7 pg (25.0-35.0); MCHC 31.2 g/dL (31.0-37.0); MCV 98.6 fL (80.0-100.0); Mean Platelet Volume 8.6; Monocytes # (A) 0.5 k/uL (0-1.0); Monocytes % (A) 5 %; Neutrophils # (A) 6.4 k/uL (1.3-7.7); Neutrophils % (A) 55 %; Platelet Count 345 k/uL (150-450); RBC 2.64 m/uL (3.80-5.40); RDW 14.7 % (11.5-15.5); WBC 11.6 k/uL (3.8-10.6)
[2024-02-13 08:47] LABS: ALT 92 U/L (4-34); AST 47 U/L (14-36); African American GFR (CKD) 17 (>60 ml/min/1.73 sqM); Albumin 3.3 g/dL (3.5-5.0); Alkaline Phosphatase 191 U/L (38-126); Anion Gap 12 mmol/L; Blood Urea Nitrogen 31 mg/dL (7-17); Calcium 8.4 mg/dL (8.4-10.2); Carbon Dioxide 23 mmol/L (22-30); Chloride 94 mmol/L (98-107); Non-African American GFR(CKD) 15 (>60 ml/min/1.73 sqM); Potassium 4.8 mmol/L (3.5-5.1); Sodium 129 mmol/L (137-145); Total Bilirubin 0.5 mg/dL (0.2-1.3); Total Protein 5.5 g/dL (6.3-8.2)
[2024-02-13 08:51] LABS: Glucose 510 mg/dL (74-99)
[2024-02-13] MEDS: INSULIN ASPART (NovoLOG) 100 UNIT/ML VIAL SQ SCH ×2 (09:43→17:30)
--- NOTE | 2024-02-13 11:13 | P.PN ---
Subjective patient is seen for follow-up for end-stage renal disease. Status post hemodialysis yesterday with 2.4 L. This morning patient is complaining off having significant milk production in the left breast. patient's daughter is 9 months old and she states that she had stopped breast-feeding about 2 weeks after her . Tolerating oral intake better. Nausea has improved. Objective - Vital Signs Vital signs: Vital Signs Temp 98.3 F 02/13/24 09:35 Pulse 82 02/13/24 09:35 Resp 16 02/13/24 09:35 BP 165/93 02/13/24 09:35 Pulse Ox 99 02/13/24 09:35 FiO2 50 02/06/24 03:33 Intake & Output 02/12/24 02/13/24 02/13/24 18:59 06:59 18:59 Intake Total 2358 358 Output Total 2550 Balance -192 358 Weight 76.5 kg Intake: Oral 1958 358 Hemodialysis 400 Output: Urine 150 Hemodialysis 2400 Other: Voiding Method Bedside Commode Bedside Commode # Voids 1 0 - Exam patient is awake, comfortable, no acute distress Examination of the heart S1 and S2 Left breast tenderness Examination of the lungs decreased breath sounds at the bases Abdomen is soft nontender Examination of lower extremities shows no edema [employer]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 - Labs CBC & Chem 7: 02/13/24 07:28 02/13/24 07:28 Labs: Abnormal Lab Results - Last 24 Hours (Table) 02/12/24 02/12/24 02/12/24 Range/Units 11:43 16:27 20:04 WBC (3.8-10.6) k/uL RBC (3.80-5.40) m/uL Hgb (11.4-16.0) gm/dL Hct (34.0-46.0) % Eosinophils # (0-0.7) k/uL Sodium (137-145) mmol/L Chloride (98-107) mmol/L BUN (7-17) mg/dL Creatinine (0.52-1.04) mg/dL Glucose (74-99) mg/dL POC Glucose (mg/dL) 154 H 182 H 202 H (70-110) mg/dL AST (14-36) U/L ALT (4-34) U/L Alkaline Phosphatase (38-126) U/L Total Protein (6.3-8.2) g/dL Albumin (3.5-5.0) g/dL 02/13/24 02/13/24 02/13/24 Range/Units 01:49 05:54 07:28 WBC 11.6 H (3.8-10.6) k/uL RBC 2.64 L (3.80-5.40) m/uL Hgb 8.1 L (11.4-16.0) gm/dL Hct 26.0 L (34.0-46.0) % Eosinophils # 2.6 H (0-0.7) k/uL Sodium (137-145) mmol/L Chloride (98-107) mmol/L BUN (7-17) mg/dL Creatinine (0.52-1.04) mg/dL Glucose (74-99) mg/dL POC Glucose (mg/dL) 395 H 536 H (70-110) mg/dL AST (14-36) U/L ALT (4-34) U/L Alkaline Phosphatase (38-126) U/L Total Protein (6.3-8.2) g/dL Albumin (3.5-5.0) g/dL 02/13/24 Range/Units 07:28 WBC (3.8-10.6) k/uL RBC (3.80-5.40) m/uL Hgb (11.4-16.0) gm/dL Hct (34.0-46.0) % Eosinophils # (0-0.7) k/uL Sodium 129 L (137-145) mmol/L Chloride 94 L (98-107) mmol/L BUN 31 H (7-17) mg/dL Creatinine 3.86 H (0.52-1.04) mg/dL Glucose 510 H* (74-99) mg/dL POC Glucose (mg/dL) (70-110) mg/dL AST 47 H (14-36) U/L ALT 92 H (4-34) U/L Alkaline Phosphatase 191 H (38-126) U/L Total Protein 5.5 L (6.3-8.2) g/dL Albumin 3.3 L (3.5-5.0) g/dL Microbiology - Last 24 Hours (Table) 02/07/24 22:09 Blood Culture - Final Blood 02/09/24 14:30 Blood Culture - Preliminary Blood Assessment and Plan Assessment: 1. End-stage renal disease maintained on hemodialysis on Wednesday schedule. 2. Hyperkalemia secondary to chronic kidney disease. Improved postdialysis. 3. Anemia of chronic kidney disease. Iron deficiency noted. Receiving IV iron. On Aranesp. Component of acute blood loss. Status post blood transfusion and IV DDAVP this admission. EGD showed antral gastritis and gastroparesis. 4. Hypertension with chronic kidney disease. Exacerbated by vomiting. Stable. 5. Diabetes mellitus type I. 6. Volume overload. Improved with ultrafiltration. 7. Acute hypoxic respiratory failure. On nasal cannula. 8. Chronic kidney disease mineral bone disease. Phosphorus level 7.7 dated February 06, 2024. On Renvela. 9. Mild antral gastritis noted on EGD. Component of gastroparesis present as well. Patient is maintained on Reglan. 10. Galactorrhea. Patient's daughter is 9 months old. Patient had stopped breast-feeding about 2 weeks after her . OB will be consult. MEDICATIONS WERE REVIEWED AND i BELIEVE THIS IS MOST LIKELY SECONDARY TO REGLAN. Plan: hemodialysis in a.m. for 2 hours with 2 L of UF Consult OB for galactorrhea, however I believe this is most likely secondary to Reglan Continue salt and fluid restriction Continue Reglan for gastroparesis
[2024-02-13 11:24] LABS: Glucose,Whole Blood 277 mg/dL (70-110)
--- NOTE | 2024-02-13 13:36 | P.PN ---
Subjective Progress Note Date: 02/13/24 HISTORY OF PRESENT ILLNESS: 34-year-old [address] 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 Patient was not hospitalized time in December 27, 2023 shortly after she left [facility] for complicated hospitalization related to her CVA along with her end-stage renal disease on hemodialysis leaving [facility] at the time she made it home and within 24 hours in the [place] [facility] and [facility] with flash pulmonary edema require emergency dialysis with severely urgent hypertension 210/114. The patient was treated and become debilitated afterward require more PT OT and extra help ended up in [facility] for short-term rehab. Has been in [facility] since with multi complication related to. Patient apparently gets rejected from to center in [place] for dialysis for variety of present and continue to go to the dialysis center 5 days a week until this last week when her dialysis will cut down to 3 days a week only and she does dialysis close to 5 hours sometimes. Apparently she called her nurse in [facility] earlier this morning complaining of severe shortness of breath dyspnea and hypoxia not been able to lay down flat and found to have significantly low oxygen level in the 80s with pulse rate in the 110 blood pressure was urgently high above 200 at the time. EMS was called and patient was transferred to the emergency department at At [facility] at the time she arrived her blood pressure was 199/ respiration over 20 with pulse oximetry running in the 80s with higher flow oxygen and supportive care brought it up to 99, chest x-ray shows finding consistent with fluid overload and congestive heart failure. EKG showed sinus tachycardia with pulse rate of 113 bpm. Laboratory value with white blood cell 14,000 hemoglobin 8.6 creatinine 5.62 with bun 56 slightly abnormal liver function test proBNP was 29 400. Patient was giving IV Vasotec along with lorazepam and morphine started on nebulizer management settle down with bed. Nephrology were called in for urgent dialysis patient be transferred to the ICU. 02/06/2024: Following her dialysis her shortness of breath had improved significantly: Patient apparently has been require more dialysis than before not a clear whether this is just her body adjusting with mild more dialysis than expected or she is noncompliant with salt and fluid which make her retain more than expected in short Period of time. Again necessity to see dietitian and assistant printer floor covering on regular basis also to follow her medication her diet her fluid intake and salt restriction low is expected to be on a more regular basis. Patient be seen Nephrology today no need for dialysis till tomorrow she still apparently scheduled for 3 times a week after this urgent dialysis this time, patient still require O2 at 3 L decreased to 2 L and probably prepare for discharge back to [facility] tomorrow after dialysis with no oxygen. 02/07/2024: The patient is more symptomatic today with Gastrointestinal symptoms including significant nausea not been able to tolerate any food or fluid, still on 4 L of O2 to keep her pulse ox at 98 percentile, she was on BiPAP through the night all night long, her hemoglobin is 7.3 with creatinine at 4.5 to. Chest x- ray does not show any evidence of pulmonary edema the patient still have the extreme high sensitivity for fluid overload and pulmonary edema require dialysis more often. 02/08/2024: She still having significant nausea and vomiting continue to move mor e fluid with hemodialysis, hemoglobin remained 7.5, echocardiogram was performed showed ejection fraction is well-preserved and normal. Chest x-ray shows significant improvement of bilateral central edema with persistent right base acute infiltrate with either atelectasis or pneumonia. Gastroparesis still bad enough that patient could not tolerate any food last 24 hours Reglan will be increased to 5 mg AC meals, still on Zofran on regular basis and on proton pump inhibitor. Consult gastroenterology for possible EGD. 02/09/2024: The patient started having hypoglycemia this morning with blood sugar running 44 and 61 holding her insulin this morning continue D5 continue supportive care for now, her intractable nausea and vomiting has settled some remain on Reglan for now and pantoprazole. We will initiate feeding at this point cautiously. Patient will skip dialysis today for tomorrow. Blood pressure remain a problem patient has been on IV hydralazine along with the clonidine patch because she is able to take her oral meds still trying to avoid BRI and ARB. GI service apparently not available patient be seen general surgery for possible EGD. 02/10/2024: Patient was severely hyperglycemic this morning required 2 different x 8 units of NovoLog to keep her blood sugar below 400 finally she is down to around 200. Her Levemir was held last 48 hours because of the nausea and vomiting with no oral intake. Patient started to eat some yesterday despite the gastroparesis still actively causing intractable nausea. She will be going for EGD this morning and hemodialysis to be done shortly after. Restart her back on her outpatient medication and titrate dose higher hopefully prepare for possible discharge tomorrow or day after tomorrow. Her severe dyspnea and shortness of breath has improved some she still require oxygen but no BiPAP at this point. 02/11/2024: Patient is resting in bed with her mom on the side of her bed were updated on current condition, patient has a new complaint today with severe pain behind her eye and parable with slight decrease in her vision. Requested ophthalmology consultation at this point knowing that patient had lost her vision in the left side from stroke back in November this year when she was transferred to [facility] at the time. With a new complaint will make follow-up right side at least does not have any problem. The meanwhile patient will continue dialysis. Her gastroparesis is slightly bit better patient is able to tolerate her food to slight degree.Blood sugar is fluctuating still dropping down little bit at the time that she is running much better than before. Again her mobility and ability to ambulate still limited still require more help. Will continue PT OT inpatient plan again to go back to [facility] rehab while she is doing dialysis potential of doing this through the weekend possible if not might not happen until Wednesday. 02/12/2024: She is having dialysis today, gastroparesis slightly bit better, her significant decrease in sight in the right eye still a problem still waiting for ophthalmology to see her. Her hemoglobin is up to 7.1 after 1 unit of blood transfusion. Blood sugars still fluctuate slight bit she had low reading early and she is up to 400 slight adjustment on her sliding scale along with a long- acting insulin for now. See if possible to get patient out of bed to do PT OT and prepare hopefully for being discharged to rehab on Wednesday. 02/13/2024: She had dialysis yesterday, has been feeling slightly bit better, able to tolerate her food, blood sugar has been fluctuating up and down. Will do slight adjustment on her diabetic management with the Levemir will be done 16 units twice a day and NovoLog will be 7 units before breakfast and lunch and be fore supper and might do 2 to 3 units before bedtime. Her blood sugar after 1 unit of blood transfusion on the 28 still holding at 7.2 with repeat lab today, still see nephrology every day. Also still seen pulmonary daily with no foreign exchange trader at she is stable currently improving with dialysis electrolyte are better and does not require any CPAP or BiPAP. Patient apparently still using morphine sulfate for pain which will be stopped completely today, there is no complaint of lactating today very minimum which will be watch little bit carefully patient had her baby over 9 months ago no sign of any pituitary gland abnormality is currently having symptoms only do more pituitary gland testing along with consult with clinic. REVIEW OF SYSTEMS: CONSTITUTIONAL: Well-developed mild respiratory distress, wearing BiPAP. EYES: No icterus sclerae, no conjunctivitis. EARS, NOSE, MOUTH, THROAT, and FACE: No sore throat, lymphadenopathy, carotid br uits or deformity. RESPIRATORY: Positive shortness of breath cough and wheezes. CARDIOVASCULAR: Positive PND orthopnea and palpitation no angina. GASTROINTESTINAL: No Abd pain, Nausea or vomiting, no Diarrhea or constipation, No GI Bleed, no distention or masses. GENITOURINARY: Negative for Hematuria or UTI, no kidney stones. INTEGUMENT/BREAST: Negative for any muscular injury with mild osteoarthritis.. HEMATOLOGIC/LYMPHATIC: Negative for bleed or purpura. MUSCULOSKELTAL: Negative for Myalgia or arthralgia. NEURLOGICAL: No LOC, Sz or syncope, blurred vision dizziness or abnormality.. BEHAVIORAL/PSYCH: Negative. ENDOCRINE: Negative. PHYSICAL EXAMINATION: General Appearance: Alert, cooperative, slightly distressed looks older than her age. Neck HEENT: Supple, no lymphadenopathy, no thyroid enlargement, no carotid bruits. Lungs: Decreased breath sound bilaterally with fine rhonchi positive crackles and wheezes in both lung armendariz. Chest Wall: Decreased expansion with deep inspiration no tenderness and no deformity was found on exam, no costochondral pain or discomfort. Heart: Regular rate and rhythm, S1, S2 positive tachycardia , no murmur, rub or gallop. Back: Symmetric, no curvature, ROM normal, no CVA tenderness. Abdomen: Soft, non-tender, bowel sounds active all four quadrants, no masses, no organomegaly. Extremities: Extremities normal, atraumatic, no cyanosis trace edema. Pulses: 2+ and symmetric. Skin: Skin color, texture, tugor normal, no rashes or lesions. Neurologic: Alert oriented x3 cranial nerves II through XII intact, no motor deficit, no abnormal balance or gait. ASSESSMENT AND PLAN: _Severe dyspnea and shortness of breath mostly from fluid overload related to her dialysis symptoms are much better lately. _Recurrent flash pulmonary edema: Seen with adjustment of her dialysis doing better. _Urgent hypertension: Blood pressure is better so far been on nifedipine XL 60 mg twice a day along with torsemide, Coreg 25 mg twice a day, hydralazine 100 mg 3 times a day along with her clonidine TTS patch. Improved significantly with systolic blood pressures hardly above 140. _ Chronic pain syndrome: Including pain behind her eye was on morphine sulfate switched to hydrocodone orally only which with she doing it [facility] before. _New complaint of : She was giving over 9 months ago which does not make any sense as a complaint this is can be reaction or side effect 1 of medication: Will watch patient carefully I believe one of the major side effect of Reglan can be if we have to might reduce the dose down to 2.5 mg eventually. _End-stage renal disease on hemodialysis initially was done 5 days a week and recently was decreased to 3 days a week. Continue to have ultrafiltration/ hemodialysis. _New complaint of severe pain and discomfort behind the eye on the right side that patient is blind on the left side from stroke had happened earlier in the year, consult ophthalmology patient might still need an official eye exam at ophthalmology clinic might be a lot better and easier than what she does in the hospital not quite sure the practicality of this at this point at least evaluation why she is in can be beneficial. _Type 1 diabetes: Levemir was changed to 15 units twice a day and NovoLog 7 units AC breakfast and lunch 10 AC dinner. _Severe hyper/hypoglycemia: With adjustment of insulin hopefully that will help. _Severe iron deficiency anemia: Continue Arenesp along with iron infusion hemoglobin still running above 7 no need for transfusion. _Gastroparesis: She is going for EGD this morning Reglan is up 5 mg 3 times a day and still on pantoprazole twice a day. Slightly bit better with PPI she is not throwing up anymore. _Congestive heart failure: Mostly diastolic dysfunction mostly related to the challenge of dialysis with adjustment of dialysis and time seems patient to do better. _Hyperlipidemia: Remain on atorvastatin 40 mg a day. _Recent history of stroke was related to type 1 diabetes along with urgent hypertension she is not on any antiplatelet agent at this point. _Severe gastritis: Required to be on PPI with pantoprazole. _Hypothyroidism: Continue levothyroxine 175 mcg daily. _Seizure: With no seizure activity lately continue Depakote ER 500 mg twice a day. _Chronic pain syndrome: Plain related to lower back pain and recurrent ne uropathy pain. Patient can benefit probably from smaller dose of gabapentin in the meanwhile has been using hydrocodone 5/325 mg up to 4 times a day. Prognosis: Fair. Discussion: Patient is doing slightly better, continue to have slight pressure behind her eye she will be still seeing ophthalmology if not in-house as an outpatient she is not blind currently. Has done much better with dialysis y esterday would be able to stretch all the way till tomorrow patient hopefully be discharged tomorrow tomorrow. Objective - Vital Signs Vital signs: Vital Signs Temp 98.5 F 02/13/24 04:00 Pulse 86 02/13/24 04:00 Resp 19 02/13/24 04:00 BP 142/69 02/13/24 04:00 Pulse Ox 93 L 02/13/24 04:00 FiO2 50 02/06/24 03:33 Intake & Output 02/12/24 02/13/24 02/13/24 18:59 06:59 18:59 Intake Total 2358 Output Total 2550 Balance -192 Weight 76.5 kg Intake: Oral 1957 Hemodialysis 400 Output: Urine 150 Hemodialysis 2400 Other: Voiding Method Bedside Commode Bedside Commode # Voids 1 0 - Labs CBC & Chem 7: 02/13/24 07:28 02/13/24 07:28 Labs: Abnormal Lab Results - Last 24 Hours (Table) 02/12/24 02/12/24 02/12/24 Range/Units 11:43 16:27 20:04 POC Glucose (mg/dL) 154 H 182 H 202 H (70-110) mg/dL 02/13/24 02/13/24 Range/Units 01:49 05:54 POC Glucose (mg/dL) 395 H 536 H (70-110) mg/dL Microbiology - Last 24 Hours (Table) 02/07/24 22:09 Blood Culture - Final Blood 02/09/24 14:30 Blood Culture - Preliminary Blood
--- NOTE | 2024-02-13 13:50 | P.PN ---
Subjective Progress Note Date: 02/13/24 Principal diagnosis: Acute hypoxic respiratory failure secondary to fluid overload/pulmonary edema/renal failure This is a 34-year-old female patient with acute hypoxic respiratory failure was being seen in the emergency and the patient is currently on a BiPAP pressure of 14 over 6 cm of water on 05 1260% and the patient's chest x-ray showing acute pulmonary edema and volume overload. She has a right IJ dialysis catheter in place. In the emergency, the patient was lethargic and yet arousable and the patient was undergoing hemodialysis. The goal of ultrafiltration is around 4.5 L. The patient has diabetes mellitus and end-stage renal disease and he has been maintained on hemodialysis 4 times a week. The patient was receiving 6 times a week and this was cut down to 4 times a week and this past week she was having some nausea vomiting. He has also had a recent CVA with impaired vision and some right-sided weakness. He has some optic neuritis and she has been e valuated [facility] treated with steroids. WBC count of 14.8, hemoglobin is at 8.6, normal coagulation profile, BUN is 57 with a creatinine of 5.6 and a sodium level of 138. Troponins are negative. proBNP level is 29,400. On today's evaluation of 02/06/2024, the patient is a 47 oxygen nasal cannula and the patient was taken off the BiPAP. The patient underwent hemodialysis yesterday with a total of 4.5 L of fluid removed. No significant respiratory distress. He is calm and comfortable. Hemodynamically stable. White cell count is at 10 with a hemoglobin 7.3 and a platelet count of 319. BUN is 52 with a creatinine of 4.5 and a sodium levels at 134 with a potassium level of 5 .3. The patient did not require ICU stay. He was transferred to telemetry unit. Patient was reevaluated today on 02/07/2024, remains on 4 L nasal cannula, O2 sats 98%, patient is scheduled to have hemodialysis again today. And in the meantime her chest x-ray continues to show evidence of pulmonary edema, patient seems to be calm, not in distress, but she seems to be chronically ill. WBC count is 10.2 hemoglobin 7.3. Potassium is 5.3 BUN is 52 creatinine 4.52 her last chest x-ray from 2 days ago showed evidence of pulmonary edema Patient was reevaluated today on 02/08/2024, patient has been maintained on hemodialysis on Wednesday and Wednesday schedule, seems to be doing much better from the pulmonary perspective, chest x-ray showed dramatic improvement in her fluid overload, and she continues to clinically improve. Reglan was added for nausea and gastroparesis type of symptoms. Her echocardiogram showed preserved ejection fraction labs were reviewed, hemoglobin remains low at 7.5, creatinine 5.07 Reevaluate today on 02/09/2024, patient continues to do well from the pulmonary perspective, significantly better after few rounds of hemodialysis, chest x-ray dramatically improved, patient is now on room air, nonetheless she is having symptoms of nausea and vomiting related to gastroparesis. Being considered for possible EGD tomorrow, labs were reviewed, hemoglobin is 7.1, patient does have chronic anemia BUN is 40 creatinine 4.29 Reevaluate today on 02/10/2024, patient continues to do well pulmonary freed, no cough no wheezing no shortness of breath, patient underwent EGD, and she was found to have mostly gastroparesis. There was evidence of significant amount of retained food in the stomach consistent with gastroparesis, no gastrointestinal obstruction noted. Reevaluate today on 02/10/30, patient is basically about the same, continues to have intermittent episodes of nausea, vomiting, dry heaves, this is all related to her severe gastroparesis. Pulmonary freed the patient improved significantly with hemodialysis. And she continues to have hemodialysis on a regular basis. No cough no wheezing no shortness of breath no chest pain no fever no chills no hemoptysis Reevaluate today on 02/13/2024, patient is doing well, relatively asymptomatic, not in distress, continues to have intermittent episodes of nausea, pulmonary freed she is doing great, patient is being considered for placement at [facility]/rehab facility. Objective - Vital Signs Vital signs: Vital Signs Temp 98 F 02/13/24 12:35 Pulse 86 02/13/24 12:35 Resp 18 02/13/24 12:35 BP 160/89 02/13/24 12:35 Pulse Ox 99 02/13/24 12:35 FiO2 50 02/06/24 03:33 Intake & Output 02/12/24 02/13/24 02/13/24 18:59 06:59 18:59 Intake Total 2358 838 Output Total 2550 Balance -192 838 Weight 76.5 kg Intake: Oral 1957 838 Hemodialysis 400 Output: Urine 150 Hemodialysis 2400 Other: Voiding Method Bedside Commode Bedside Commode # Voids 1 0 0 - Exam General: Revealed 34-year-old female in no distress Skin: Skin is warm and dry and no rashes or lesions are noted. Eye: Pupils are equal, round and reactive to light, extra-ocular movements are intact; there is normal conjunctiva bilaterally. Ears, nose, mouth and throat: There are moist mucous membranes and no oral lesions. Neck: The neck is supple, there is no tenderness or JVD. Cardiovascular: There is a regular rate and rhythm. No murmur, rub or gallop is appreciated. Respiratory: Clear breath sounds no rhonchi no wheezes Gastrointestinal: Soft, non-distended, non-tender abdomen without masses or organomegaly noted. There is no rebound or guarding present. Bowel sounds are unremarkable. Musculoskeletal: Deformities no limitation range of motion Neurological: CN II-XII intact, Cranial nerves III through XII are intact. There are no obvious motor or sensory deficits. Coordination appears grossly intact. Speech is normal. Psychiatric: Cooperative, appropriate mood & affect, normal judgment. - Labs CBC & Chem 7: 02/13/24 07:28 02/13/24 07:28 Labs: Abnormal Lab Results - Last 24 Hours (Table) 02/12/24 02/12/24 02/13/24 Range/Units 16:27 20:04 01:49 WBC (3.8-10.6) k/uL RBC (3.80-5.40) m/uL Hgb (11.4-16.0) gm/dL Hct (34.0-46.0) % Eosinophils # (0-0.7) k/uL Sodium (137-145) mmol/L Chloride (98-107) mmol/L BUN (7-17) mg/dL Creatinine (0.52-1.04) mg/dL Glucose (74-99) mg/dL POC Glucose (mg/dL) 182 H 202 H 395 H (70-110) mg/dL AST (14-36) U/L ALT (4-34) U/L Alkaline Phosphatase (38-126) U/L Total Protein (6.3-8.2) g/dL Albumin (3.5-5.0) g/dL 02/13/24 02/13/24 02/13/24 Range/Units 05:54 07:28 07:28 WBC 11.6 H (3.8-10.6) k/uL RBC 2.64 L (3.80-5.40) m/uL Hgb 8.1 L (11.4-16.0) gm/dL Hct 26.0 L (34.0-46.0) % Eosinophils # 2.6 H (0-0.7) k/uL Sodium 129 L (137-145) mmol/L Chloride 94 L (98-107) mmol/L BUN 31 H (7-17) mg/dL Creatinine 3.86 H (0.52-1.04) mg/dL Glucose 510 H* (74-99) mg/dL POC Glucose (mg/dL) 536 H (70-110) mg/dL AST 47 H (14-36) U/L ALT 92 H (4-34) U/L Alkaline Phosphatase 191 H (38-126) U/L Total Protein 5.5 L (6.3-8.2) g/dL Albumin 3.3 L (3.5-5.0) g/dL 02/13/24 Range/Units 11:21 WBC (3.8-10.6) k/uL RBC (3.80-5.40) m/uL Hgb (11.4-16.0) gm/dL Hct (34.0-46.0) % Eosinophils # (0-0.7) k/uL Sodium (137-145) mmol/L Chloride (98-107) mmol/L BUN (7-17) mg/dL Creatinine (0.52-1.04) mg/dL Glucose (74-99) mg/dL POC Glucose (mg/dL) 277 H (70-110) mg/dL AST (14-36) U/L ALT (4-34) U/L Alkaline Phosphatase (38-126) U/L Total Protein (6.3-8.2) g/dL Albumin (3.5-5.0) g/dL Microbiology - Last 24 Hours (Table) 02/07/24 22:09 Blood Culture - Final Blood 02/09/24 14:30 Blood Culture - Preliminary Blood Assessment and Plan Assessment: impression: acute hypoxic respiratory failure secondary to massive fluid overload/pulmonary edema, improving with hemodialysis End-stage renal disease on hemodialysis maintained on hemodialysis Acute hyperkalemia secondary end-stage renal disease Anemia of chronic disease Diabetes mellitus type 1 Recent history of CVA with some residual right-sided weakness Optic neuritis maintain treated with steroids Gastroparesis/severe with severe symptoms of nausea and vomiting. Recommendation: Continue present supportive care measures Patient has no active pulmonary issues, Will follow as needed Scheduled to go to [facility] in a.m. Continue IV iron for now Time with Patient: Less than 30
[2024-02-13 16:44] LABS: Glucose,Whole Blood 78 mg/dL (70-110)
[2024-02-13 17:08] LABS: Glucose,Whole Blood 95 mg/dL (70-110)
[2024-02-13 20:23] LABS: Glucose,Whole Blood 137 mg/dL (70-110)
[2024-02-13] MEDS: INSULIN DETEMIR (LEVEMIR) 100 UNIT/ML SYR SQ SCH (20:26)
[2024-02-14 06:27] LABS: Glucose,Whole Blood 83 mg/dL (70-110)
--- NOTE | 2024-02-14 08:24 | P.DS ---
Providers Date of admission: 02/05/24 03:44 Attending physician: Jason oMrgan Consults: 02/05/24 03:44 Consult Physician Routine Consulting Provider: Geremias Mullins Consult Reason/Comments: chf Do you want consulting provider notified?: Yes Consult Physician Routine Consulting Provider: Gary Andrade Consult Reason/Comments: CKD Do you want consulting provider notified?: Yes Consult Physician Routine Consulting Provider: Praneeth Thomson Consult Reason/Comments: hypoxia Do you want consulting provider notified?: Yes 02/08/24 19:07 Consult Physician Routine Consulting Provider: Kenny Bella Consult Reason/Comments: Gastroperesis, EGD Do you want consulting provider notified?: Yes, Notify in am 02/11/24 08:38 Consult Physician Stat Consulting Provider: Shree Moncada Consult Reason/Comments: pressure, vision loss Do you want consulting provider notified?: Yes [facility] care [facility] Course: HISTORY OF PRESENT ILLNESS: 34-year-old [address] 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 Patient was not hospitalized time in December 27, 2023 shortly after she left [facility] for complicated hospitalization related to her CVA along with her end-stage renal disease on hemodialysis leaving [facility] at the time she made it home and within 24 hours in the [facility] with flash pulmonary edema require emergency dialysis with severely urgent hypertension 210/114. The patient was treated and become debilitated afterward require more PT OT and extra help ended up in [facility] for short-term rehab. Has been in [facility] since with multi complication related to. Patient apparently gets rejected from to center in [place] for dialysis for variety of present and continue to go to the dialysis center 5 days a week until this last week when her dialysis will cut down to 3 days a week only and she does dialysis close to 5 hours sometimes. Apparently she called her nurse in [facility] earlier this morning complaining of severe shortness of breath dyspnea and hypoxia not been able to lay down flat and found to have significantly low oxygen level in the 80s with pulse rate in the 110 blood pressure was urgently high above 200 at the time. EMS was called and patient was transferred to the emergency department at [facility] at the time she arrived her blood pressure was 199/ respiration over 20 with pulse oximetry running in the 80s with higher flow oxygen and supportive care brought it up to 99, chest x-ray shows finding consistent with fluid overload and congestive heart failure. EKG showed sinus tachycardia with pulse rate of 113 bpm. Laboratory value with white blood cell 14,000 hemoglobin 8.6 creatinine 5.62 with bun 56 slightly abnormal liver function test proBNP was 29 400. Patient was giving IV Vasotec along with lorazepam and morphine started on nebulizer management settle down with bed. Nephrology were called in for urgent dialysis patient be transferred to the ICU. 02/06/2024: Following her dialysis her shortness of breath had improved significantly: Patient apparently has been require more dialysis than before not a clear whether this is just her body adjusting with mild more dialysis than expected or she is noncompliant with salt and fluid which make her retain more than expected in short Period of time. Again necessity to see dietitian and oil field technician on regular basis also to follow her medication her diet her fluid intake and salt restriction low is expected to be on a more regular basis. Patient be seen Nephrology today no need for dialysis till tomorrow she still apparently scheduled for 3 times a week after this urgent dialysis this time, patient still require O2 at 3 L decreased to 2 L and probably prepare for discharge back to [facility] tomorrow after dialysis with no oxygen. 02/07/2024: The patient is more symptomatic today with Gastrointestinal symptoms including significant nausea not been able to tolerate any food or fluid, still on 4 L of O2 to keep her pulse ox at 98 percentile, she was on BiPAP through the night all night long, her hemoglobin is 7.3 with creatinine at 4.5 to. Chest x- ray does not show any evidence of pulmonary edema the patient still have the extreme high sensitivity for fluid overload and pulmonary edema require dialysis more often. 02/08/2024: She still having significant nausea and vomiting continue to move more fluid with hemodialysis, hemoglobin remained 7.5, echocardiogram was performed showed ejection fraction is well-preserved and normal. Chest x-ray shows significant improvement of bilateral central edema with persistent right base acute infiltrate with either atelectasis or pneumonia. Gastroparesis still bad enough that patient could not tolerate any food last 24 hours Reglan will be increased to 5 mg AC meals, still on Zofran on regular basis and on proton pump inhibitor. Consult gastroenterology for possible EGD. 02/09/2024: The patient started having hypoglycemia this morning with blood sugar running 44 and 61 holding her insulin this morning continue D5 continue supportive care for now, her intractable nausea and vomiting has settled some remain on Reglan for now and pantoprazole. We will initiate feeding at this point cautiously. Patient will skip dialysis today for tomorrow. Blood pressure remain a problem patient has been on IV hydralazine along with the clonidine patch because she is able to take her oral meds still trying to avoid BRI and ARB. GI service apparently not available patient be seen general surgery for possible EGD. 02/10/2024: Patient was severely hyperglycemic this morning required 2 different x 8 units of NovoLog to keep her blood sugar below 400 finally she is down to around 200. Her Levemir was held last 48 hours because of the nausea and vomiting with no oral intake. Patient started to eat some yesterday despite the gastroparesis still actively causing intractable nausea. She will be going for EGD this morning and hemodialysis to be done shortly after. Restart her back on her outpatient medication and titrate dose higher hopefully prepare for possible discharge tomorrow or day after tomorrow. Her severe dyspnea and shortness of breath has improved some she still require oxygen but no BiPAP at this point. 02/11/2024: Patient is resting in bed with her mom on the side of her bed were updated on current condition, patient has a new complaint today with severe pain behind her eye and parable with slight decrease in her vision. Requested ophthalmology consultation at this point knowing that patient had lost her vision in the left side from stroke back in November this year when she was transferred to [facility] at the time. With a new complaint will make follow-up right side at least does not have any problem. The meanwhile patient will continue dialysis. Her gastroparesis is slightly bit better patient is able to tolerate her food to slight degree.Blood sugar is fluctuating still dropping down little bit at the time that she is running much better than before. Again her mobility and ability to ambulate still limited still require more help. Will continue PT OT inpatient plan again to go back to [facility] rehab while she is doing dialysis potential of doing this through the weekend possible if not might not happen until Wednesday. 02/12/2024: She is having dialysis today, gastroparesis slightly bit better, her significant decrease in sight in the right eye still a problem still waiting for ophthalmology to see her. Her hemoglobin is up to 7.1 after 1 unit of blood transfusion. Blood sugars still fluctuate slight bit she had low reading early and she is up to 400 slight adjustment on her sliding scale along with a long- acting insulin for now. See if possible to get patient out of bed to do PT OT and prepare hopefully for being discharged to rehab on Wednesday. 02/13/2024: She had dialysis yesterday, has been feeling slightly bit better, able to tolerate her food, blood sugar has been fluctuating up and down. Will do slight adjustment on her diabetic management with the Levemir will be done 16 units twice a day and NovoLog will be 7 units before breakfast and lunch and before supper and might do 2 to 3 units before bedtime. Her blood sugar after 1 unit of blood transfusion on the 28 still holding at 7.2 with repeat lab today, still see nephrology every day. Also still seen pulmonary daily with no microsoft exchange architect at she is stable currently improving with dialysis electrolyte are better and does not require any CPAP or BiPAP. Patient apparently still using morphine sulfate for pain which will be stopped completely today, there is no complaint of lactating today very minimum which will be watch little bit carefully patient had her baby over 9 months ago no sign of any pituitary gland abnormality is currently having symptoms only do more pituitary gland testing along with consult with clinic. 02/14/2024: She is going for dialysis today, shortness of breath is much better, she had an episode of medication yesterday not a clear why reviewing all her medication I believe this is side effect from the increase in Reglan she had and her symptoms are slightly bit better today we will continue the same dose. Patient is not complaining of her vision of the pressure behind her eye anymore her appointment with ophthalmology probably will change to an outpatient. She is going to complete her dialysis today and she will be discharged tomorrow today. REVIEW OF SYSTEMS: CONSTITUTIONAL: Well-developed mild respiratory distress, wearing BiPAP. EYES: No icterus sclerae, no conjunctivitis. EARS, NOSE, MOUTH, THROAT, and FACE: No sore throat, lymphadenopathy, carotid bruits or deformity. RESPIRATORY: Positive shortness of breath cough and wheezes. CARDIOVASCULAR: Positive PND orthopnea and palpitation no angina. GASTROINTESTINAL: No Abd pain, Nausea or vomiting, no Diarrhea or constipation, No GI Bleed, no distention or masses. GENITOURINARY: Negative for Hematuria or UTI, no kidney stones. INTEGUMENT/BREAST: Negative for any muscular injury with mild osteoarthritis.. HEMATOLOGIC/LYMPHATIC: Negative for bleed or purpura. MUSCULOSKELTAL: Negative for Myalgia or arthralgia. NEURLOGICAL: No LOC, Sz or syncope, blurred vision dizziness or abnormality.. BEHAVIORAL/PSYCH: Negative. ENDOCRINE: Negative. PHYSICAL EXAMINATION: General Appearance: Alert, cooperative, slightly distressed looks older than her age. Neck HEENT: Supple, no lymphadenopathy, no thyroid enlargement, no carotid bruits. Lungs: Decreased breath sound bilaterally with fine rhonchi positive crackles and wheezes in both lung armendariz. Chest Wall: Decreased expansion with deep inspiration no tenderness and no deformity was found on exam, no costochondral pain or discomfort. Heart: Regular rate and rhythm, S1, S2 positive tachycardia , no murmur, rub or gallop. Back: Symmetric, no curvature, ROM normal, no CVA tenderness. Abdomen: Soft, non-tender, bowel sounds active all four quadrants, no masses, no organomegaly. Extremities: Extremities normal, atraumatic, no cyanosis trace edema. Pulses: 2+ and symmetric. Skin: Skin color, texture, tugor normal, no rashes or lesions. Neurologic: Alert oriented x3 cranial nerves II through XII intact, no motor deficit, no abnormal balance or gait. ASSESSMENT AND PLAN: _Severe dyspnea and shortness of breath mostly from fluid overload related to her dialysis symptoms are much better lately. _Recurrent flash pulmonary edema: Seen with adjustment of her dialysis doing better. _Urgent hypertension: Blood pressure is better so far been on nifedipine XL 60 mg twice a day along with torsemide, Coreg 25 mg twice a day, hydralazine 100 mg 3 times a day along with her clonidine TTS patch. Improved significantly with systolic blood pressures hardly above 140. _ Chronic pain syndrome: Including pain behind her eye was on morphine sulfate switched to hydrocodone orally only which with she doing it [place] before. _New complaint of : She was giving over 9 months ago which does not make any sense as a complaint this is can be reaction or side effect 1 of medication: Will watch patient carefully I believe one of the major side effect of Reglan can be if we have to might reduce the dose down to 2.5 mg eventually. _End-stage renal disease on hemodialysis initially was done 5 days a week and recently was decreased to 3 days a week. Continue to have ultrafiltration/hemodialysis. _New complaint of severe pain and discomfort behind the eye on the right side that patient is blind on the left side from stroke had happened earlier in the year, consult ophthalmology patient might still need an official eye exam at ophthalmology clinic might be a lot better and easier than what she does in the hospital not quite sure the practicality of this at this point at least evaluation why she is in can be beneficial. _Type 1 diabetes: Levemir was changed to 15 units twice a day and NovoLog 7 units AC breakfast and lunch 10 AC dinner. _Severe hyper/hypoglycemia: With adjustment of insulin hopefully that will help. _Severe iron deficiency anemia: Continue Arenesp along with iron infusion hemoglobin still running above 7 no need for transfusion. _Gastroparesis: She is going for EGD this morning Reglan is up 5 mg 3 times a day and still on pantoprazole twice a day. Slightly bit better with PPI she is not throwing up anymore. _Congestive heart failure: Mostly diastolic dysfunction mostly related to the challenge of dialysis with adjustment of dialysis and time seems patient to do better. _Hyperlipidemia: Remain on atorvastatin 40 mg a day. _Recent history of stroke was related to type 1 diabetes along with urgent hypertension she is not on any antiplatelet agent at this point. _Severe gastritis: Required to be on PPI with pantoprazole. _Hypothyroidism: Continue levothyroxine 175 mcg daily. _Seizure: With no seizure activity lately continue Depakote ER 500 mg twice a day. _Chronic pain syndrome: Plain related to lower back pain and recurrent neuropathy pain. Patient can benefit probably from smaller dose of gabapentin in the meanwhile has been using hydrocodone 5/325 mg up to 4 times a day. Prognosis: Guarded. Discussion: Doing better today will do hemodialysis and patient will be discharged tomorrow with after she is done. Hospital course: Patient was admitted with severe shortness of breath dyspnea and flash pulmonary edema she is not adjusted to dialysis that well her blood pressure was urgently high and she was having chest pain and pressure along with tachycardia and hypoxia. End up going back for dialysis and with more dialysis through the last few days. Patient was seen multi specialist including pulmonary critical care, cardiolo gy, nephrology. With the adjustment of her dialysis time has done slightly better with fewer urgent dialysis in between last few days has been doing much better. Patient developed to have hyper/hypoglycemia on and off from 1 end to another end up splitting her long-acting insulin into 2 still having NovoLog before each meal and at bedtime with seem to be better so far. She developed Pressure behind her eye required to see ophthalmology but no change in vision on the right side at this point the patient will be seen ophthalmology as an outpatient. Yesterday patient developed lactating from both breast as a side effect from increase of her Reglan and she is able to tolerate it so we will continue the same dose of medication hoping that skin improved within a few days. Patient stable to be discharged back tomorrow with today on 02/14/2024. Time spent on discharging patient was over 40 minutes. Patient Condition at Discharge: Serious Plan - Discharge Summary Discharge Rx Participant: Yes New Discharge Prescriptions: New Ipratropium-Albuterol Nebulize [Duoneb 0.5 mg-3 mg/3 ml Soln] 3 ml INHALATION RT-TID PRN each PRN Reason: Shortness Of Breath Or Wheezing Insulin Detemir (Levemir) [Levemir] 15 unit SQ BID@0700,2100 each INSULIN ASPART (NovoLOG) [NovoLOG (formulary)] 0 unit SQ ACHS each Metoclopramide [Reglan] 5 mg PO AC-TID tab Darbepoetin Artur [Aranesp] 40 mcg SQ Q7D each cloNIDine 0.3 MG/24HR PATCH [Catapres-TTS] 1 patch TRANSDERM Q7D #4 patch Isosorbide Mononitrate ER [Imdur] 30 mg PO DAILY tab polyethylene glycoL 3350 [Miralax] 17 gm PO AC-LUNCH #527 gm INSULIN ASPART (NovoLOG) [NovoLOG (formulary)] 10 unit SQ AC-SUPPER each INSULIN ASPART (NovoLOG) [NovoLOG (formulary)] 7 unit SQ AC-BID@0730,1230 each Continue Sertraline [Zoloft] 200 mg PO DAILY@0800 hydrALAZINE HCL [Apresoline] 100 mg PO TID@0600,1400,2200 [place] Caps 1 cap PO HS@2100 Atorvastatin [Lipitor] 40 mg PO HS@2100 methocarbamoL [Robaxin-750] 750 mg PO QID@06,12,17,21 Ondansetron [Zofran] 4 mg PO Q8HR PRN PRN Reason: Nausea And Vomiting bisacodyL [Dulcolax] 10 mg RECTAL DAILY PRN PRN Reason: Constipation Magnesium Hydroxide [Milk of Magnesia Concentrate] 7,200 mg PO DAILY PRN PRN Reason: Constipation NIFEdipine XL [Procardia XL] 60 mg PO BID@0800,1700 Torsemide [Demadex] 40 mg PO DAILY@0800 Lidocaine 4% Patch 1 patch TOPICAL DAILY@0800 Levothyroxine Sodium [Synthroid] 175 mcg PO DAILY@0600 carvediloL [Coreg] 25 mg PO BID@0600,1700 Divalproex ER [Depakote ER] 500 mg PO BID@0600,1700 Pantoprazole [Protonix] 40 mg PO DAILY@0600 Menthol [Biofreeze] 1 applic TOPICAL BID PRN PRN Reason: Pain Sevelamer [Renvela] 1,600 mg PO AC-TID@07,11,1830 Docusate [Colace] 100 mg PO DAILY@0800 Aspirin 81 mg PO DAILY@0800 HYDROcodone/APAP 5-325MG [[place] 5-325] 1 tab PO Q8H PRN #20 tab PRN Reason: Pain ALPRAZolam [Xanax] 0.25 mg PO QID PRN #60 tab PRN Reason: Anxiety Discontinued Insulin Aspart [NovoLOG Flexpen] See Protocol SQ ACHS@07,11,1630,2130 Metoclopramide [Reglan] 2.5 mg PO BID@0600,1500 Insulin Aspart [NovoLOG Flexpen] 5 units SQ TID@08,12,17 Insulin Detemir (Levemir) [Levemir] 30 unit SQ DAILY@1330 each amLODIPine [Norvasc] 5 mg PO DAILY@0800,1700 PRN PRN Reason: HOLD FOR SBP BELOW 110 Discharge Medication List Levothyroxine Sodium [Synthroid] 175 mcg PO DAILY@0600 10/22/23 [History] Sertraline [Zoloft] 200 mg PO DAILY@0800 10/22/23 [History] Atorvastatin [Lipitor] 40 mg PO HS@209912/27/23 [History] Divalproex ER [Depakote ER] 500 mg PO BID@0600,1700 12/27/23 [History] Ondansetron [Zofran] 4 mg PO Q8HR PRN 12/27/23 [History] Pantoprazole [Protonix] 40 mg PO DAILY@0612/27/23 [History] [place] Caps 1 cap PO HS@209912/27/23 [History] carvediloL [Coreg] 25 mg PO BID@0600,1700 12/27/23 [History] hydrALAZINE HCL [Apresoline] 100 mg PO TID@0600,1400,2200 12/27/23 [History] methocarbamoL [Robaxin-750] 750 mg PO QID@06,12,17,12/27/23 [History] Aspirin 81 mg PO DAILY@0802/05/24 [History] Docusate [Colace] 100 mg PO DAILY@0802/05/24 [History] Lidocaine 4% Patch 1 patch TOPICAL DAILY@0800 02/05/24 [History] Magnesium Hydroxide [Milk of Magnesia Concentrate] 7,200 mg PO DAILY PRN 02/05/24 [History] Menthol [Biofreeze] 1 applic TOPICAL BID PRN 02/05/24 [History] NIFEdipine XL [Procardia XL] 60 mg PO BID@0800,1700 02/05/24 [History] Sevelamer [Renvela] 1,600 mg PO AC-TID@07,11,1830 02/05/24 [History] Torsemide [Demadex] 40 mg PO DAILY@0800 02/05/24 [History] bisacodyL [Dulcolax] 10 mg RECTAL DAILY PRN 02/05/24 [History] ALPRAZolam [Xanax] 0.25 mg PO QID PRN #60 tab 02/14/24 [Rx] Darbepoetin Artur [Aranesp] 40 mcg SQ Q7D each 02/14/24 [Rx] HYDROcodone/APAP 5-325MG [[place] 5-325] 1 tab PO Q8H PRN #20 tab 02/14/24 [Rx] INSULIN ASPART (NovoLOG) [NovoLOG (formulary)] 0 unit SQ ACHS each 02/14/24 [Rx] INSULIN ASPART (NovoLOG) [NovoLOG (formulary)] 7 unit SQ AC-BID@0730,1230 each 02/14/24 [Rx] INSULIN ASPART (NovoLOG) [NovoLOG (formulary)] 10 unit SQ AC-SUPPER each 02/14/24 [Rx] Insulin Detemir (Levemir) [Levemir] 15 unit SQ BID@0700,2100 each 02/14/24 [Rx] Ipratropium-Albuterol Nebulize [Duoneb 0.5 mg-3 mg/3 ml Soln] 3 ml INHALATION RT-TID PRN each 02/14/24 [Rx] Isosorbide Mononitrate ER [Imdur] 30 mg PO DAILY tab 02/14/24 [Rx] Metoclopramide [Reglan] 5 mg PO AC-TID tab 02/14/24 [Rx] cloNIDine 0.3 MG/24HR PATCH [Catapres-TTS] 1 patch TRANSDERM Q7D #4 patch 02/14/24 [Rx] polyethylene glycoL 3350 [Miralax] 17 gm PO AC-LUNCH #527 gm 02/14/24 [Rx] Follow up Appointment(s)/Referral(s): Charlene Lim MD [STAFF PHYSICIAN] - 1 Week Jarrett Delgadillo MD [REFERRING] - 1 Week Azeem Avila DO [STAFF PHYSICIAN] - 1 Week Jason Morgan MD [Primary Care Provider] - 1 Week Shree Moncada MD [STAFF PHYSICIAN] - 1 Week Discharge Disposition: TRANSFER TO SNF/ECF
--- NOTE | 2024-02-14 10:05 | P.PN ---
Subjective patient is seen for follow-up for end-stage renal disease. seen on hemodialysis. Tolerating treatment well. continues to have milk production from left breast. 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 End-stage renal disease maintained on hemodialysis on Wednesday schedule. 2. Hyperkalemia secondary to chronic kidney disease. Improved postdialysis. 3. Anemia of chronic kidney disease. Iron deficiency noted. Receiving IV iron. On Aranesp. Component of acute blood loss. Status post blood transfusion and IV DDAVP this admission. EGD showed antral gastritis and gastroparesis. 4. Hypertension with chronic kidney disease. Exacerbated by vomiting. Stable. 5. Diabetes mellitus type I. 6. Volume overload. Improved with ultrafiltration. 7. Acute hypoxic respiratory failure. On nasal cannula. 8. Chronic kidney disease mineral bone disease. Phosphorus level 7.7 dated February 06, 2024. On Renvela. 9. Mild antral gastritis noted on EGD. Component of gastroparesis present as well. Patient is maintained on Reglan. 10. Galactorrhea. Patient's daughter is 9 months old. Patient had stopped breast-feeding about 2 weeks after her . I believe this is most likely secondary to Reglan. Plan: hemodialysis in a.m.if still here Continue salt and fluid restriction Continue Reglan for gastroparesis
[2024-02-14 11:30] LABS: Glucose,Whole Blood 78 mg/dL (70-110)
[2024-02-14 14:14] VITALS: BMI 27.2
[2024-02-14 15:44] VITALS: BP 161/66; PULSE 77; RESP 17; TEMP 98
[2024-02-14 16:56] LABS: Glucose,Whole Blood 82 mg/dL (70-110)
== END 2024-02-14 17:27 | DRG 194 ==
LOC: EC 02:05 → 3SCARD 03:44
PROVIDERS: ADMIT Internal Medicine Geriatric Medicine; ATTEND Internal Medicine Geriatric Medicine
PROC: 5A09357 Assistance with Respiratory Ventilation, Less than 24 Consecutive Hours, Continuous Positive Airway Pressure (ICD-10-PCS; 2024-02-05)
PROC: 5A09357 Assistance with Respiratory Ventilation, Less than 24 Consecutive Hours, Continuous Positive Airway Pressure (ICD-10-PCS; 2024-02-05)
PROC: 0DB78ZX Excision of Stomach, Pylorus, Via Natural or Artificial Opening Endoscopic, Diagnostic (ICD-10-PCS; principal; 2024-02-10 11:15)
PROC: 5A1D70Z Performance of Urinary Filtration, Intermittent, Less than 6 Hours Per Day (ICD-10-PCS; 2024-02-12)
DX: I13.2 Hypertensive heart and chronic kidney disease with heart failure and with stage 5 chronic kidney disease, or end stage renal disease (principal); I16.1 Hypertensive emergency; I50.33 Acute on chronic diastolic (congestive) heart failure; I69.351 Hemiplegia and hemiparesis following cerebral infarction affecting right dominant side; J96.01 Acute respiratory failure with hypoxia; K31.84 Gastroparesis; E83.9 Disorder of mineral metabolism, unspecified; I69.398 Other sequelae of cerebral infarction; H53.8 Other visual disturbances; J45.909 Unspecified asthma, uncomplicated; N18.6 End stage renal disease; D63.1 Anemia in chronic kidney disease; Z76.82 Awaiting organ transplant status; E03.9 Hypothyroidism, unspecified; Z99.2 Dependence on renal dialysis; E10.22 Type 1 diabetes mellitus with diabetic chronic kidney disease; E10.319 Type 1 diabetes mellitus with unspecified diabetic retinopathy without macular edema; E10.43 Type 1 diabetes mellitus with diabetic autonomic (poly)neuropathy; E10.649 Type 1 diabetes mellitus with hypoglycemia without coma; E10.65 Type 1 diabetes mellitus with hyperglycemia; G40.909 Epilepsy, unspecified, not intractable, without status epilepticus; D50.9 Iron deficiency anemia, unspecified; F32.A Depression, unspecified; E78.5 Hyperlipidemia, unspecified; E87.5 Hyperkalemia; F41.9 Anxiety disorder, unspecified; Z28.310 Unvaccinated for COVID-19; N64.3 Galactorrhea not associated with childbirth; H54.62 Unqualified visual loss, left eye, normal vision right eye; H46.9 Unspecified optic neuritis; G89.4 Chronic pain syndrome; K29.70 Gastritis, unspecified, without bleeding; Z28.21 Immunization not carried out because of patient refusal; Z79.4 Long term (current) use of insulin; Z87.19 Personal history of other diseases of the digestive system; K21.9 Gastro-esophageal reflux disease without esophagitis; Z91.199 Patient's noncompliance with other medical treatment and regimen due to unspecified reason; Z88.6 Allergy status to analgesic agent; Z88.5 Allergy status to narcotic agent; Z88.8 Allergy status to other drugs, medicaments and biological substances; Z79.890 Hormone replacement therapy; Z79.899 Other long term (current) drug therapy; Z87.891 Personal history of nicotine dependence; Z79.82 Long term (current) use of aspirin; Z82.49 Family history of ischemic heart disease and other diseases of the circulatory system; Z83.3 Family history of diabetes mellitus; Z96.41 Presence of insulin pump (external) (internal)
CPT/HCPCS: 36410; 36415; 43239; 71045; 80048; 80053; 81001; 82728; 83540; 83550; 83605; 83735; 83880; 84100; 84484; 85025; 85027; 85610; 85730; 86850; 86900; 86901; 86920; 87040; 87636; 88305; 90935; 93005; 93308; 94640; 94660; 94760

== ENCOUNTER 2024-02-18 05:01 | Inpatient (IN) | payer OTHER ==
[2024-02-18 05:09] LABS: Glucose,Whole Blood 255 mg/dL (70-110)
[2024-02-18] MEDS: CLEVIDIPINE BUTYRATE 25 MG in EMPTY BAG 1 BAG IV SCH (05:28)
[2024-02-18 05:30] LABS: Anisocytosis Slight; Basophils # (A) 0.1 k/uL (0-0.2); Basophils % (A) 1 %; Eosinophils # (A) 2.4 k/uL (0-0.7); Eosinophils % (A) 16 %; HCT 30.5 % (34.0-46.0); Lymphocytes # (A) 1.8 k/uL (1.0-4.8); Lymphocytes % (A) 12 %; MCH 31.4 pg (25.0-35.0); MCHC 32.7 g/dL (31.0-37.0); MCV 96.2 fL (80.0-100.0); Macrocytosis Slight; Mean Platelet Volume 7.9; Monocytes # (A) 0.8 k/uL (0-1.0); Monocytes % (A) 5 %; Neutrophils # (A) 9.9 k/uL (1.3-7.7); Neutrophils % (A) 65 %; Platelet Count 445 k/uL (150-450); RBC 3.17 m/uL (3.80-5.40); RDW 16.5 % (11.5-15.5); WBC 15.3 k/uL (3.8-10.6)
--- NOTE | 2024-02-18 05:31 | XR ---
EXAMINATION TYPE: XR chest 1V portable DATE OF EXAM: 02/18/2024 COMPARISON: Prior chest x-ray February 07, 2024 HISTORY: Altered mental status. Fast heart rate. TECHNIQUE: Single frontal view of the chest is obtained. FINDINGS: Stable right internal jugular dialysis catheter. Increased central opacities bilaterally. T here is no suspicious focal air space opacity, pleural effusion, or pneumothorax seen. The cardiac s ilhouette size is stable and upper limits of normal. The osseous structures are intact. IMPRESSION: Mild bilateral central edema remains present. Correlate for fluid overload state.
--- NOTE | 2024-02-18 05:34 | CT ---
EXAMINATION TYPE: CODE STROKE: CT brain wo contrast DATE OF EXAM: 02/18/2024 COMPARISON: None. HISTORY: PER PT LAST WELL KNOWN WAS 0200 TODAY. PT HAD A STROKE IN OCT 2023. Neuropathy, last seizu re 2020, gastroparesis, headaches with dialysis, states "fast heart rate" since giving ., recei ves Hemodialysis Wednesday- and Saturdays at [facility]., right chest hemodialys is catheter., severe HTN patient awaiting Kidney and Pancrease Transplant. , states sometimes she bhardwaj s had stroke -like symptoms but no stroke., hx of c-diff 2013. H/O DM, HTN, RENAL DISEASE. PER DR ISAURA AKINS, BYPASS [facility]S DUE TO H/O STROKE. Acute onset neuro deficit. CT DLP: 1091.8 mGycm. Automated Exposure Control for Dose Reduction was Utilized. TECHNIQUE: CT scan of the head is performed without contrast. FINDINGS: There is no acute intracranial hemorrhage, mass effect, or midline shift identified. The ventricles and sulci are within normal limits in size. Zapata-white matter differentiation is preserve d. The globes are intact and the visualized sinuses are clear. IMPRESSION: No acute intracranial hemorrhage, mass effect, or midline shift is seen.
[2024-02-18 05:41] LABS: ALT 40 U/L (4-34); AST 24 U/L (14-36); African American GFR (CKD) 16 (>60 ml/min/1.73 sqM); Albumin 3.8 g/dL (3.5-5.0); Alkaline Phosphatase 148 U/L (38-126); Anion Gap 7 mmol/L; Blood Urea Nitrogen 25 mg/dL (7-17); Calcium 9.1 mg/dL (8.4-10.2); Carbon Dioxide 34 mmol/L (22-30); Chloride 93 mmol/L (98-107); Glucose 250 mg/dL (74-99); Non-African American GFR(CKD) 14 (>60 ml/min/1.73 sqM); Potassium 4.8 mmol/L (3.5-5.1); Sodium 134 mmol/L (137-145); Total Bilirubin 0.7 mg/dL (0.2-1.3); Total Protein 6.2 g/dL (6.3-8.2)
[2024-02-18 05:49] LABS: Partial Thromboplastin Time 25.3 sec (22.0-30.0); Prothrombin Time 10.8 sec (10.0-12.5)
--- NOTE | 2024-02-18 05:51 | CT ---
EXAMINATION TYPE: CODE STROKE: CTA head neck DATE OF EXAM: 02/18/2024 HISTORY: PER PT LAST WELL KNOWN WAS 0200 TODAY. PT HAD A STROKE IN OCT 2023. Neuropathy, last seizu re 2020, gastroparesis, headaches with dialysis, states "fast heart rate" since giving ., recei ves Hemodialysis Wednesday- and Saturdays at [facility] right chest hemodialys is catheter., severe HTN patient awaiting Kidney and Pancrease Transplant. , states sometimes she bhardwaj s had stroke -like symptoms but no stroke., hx of c-diff 2013. H/O DM, HTN, RENAL DISEASE. PER DR ISAURA AKINS, BYPASS LABS DUE TO H/O STROKE. Right-sided weakness. Code stroke. COMPARISON: None. CT DLP: 498.9 mGycm. Automated Exposure Control for Dose Reduction was Utilized. TECHNIQUE: CTA scan of the head and neck is performed with IV Contrast, patient injected with 65 mL of Isovue 370, axial images are obtained, coronal and sagittal reformatted images are reviewed. 3D re constructed images are created on an independent workstation and reviewed. FINDINGS: Carotid/Vascular Structures: There is for vessel origin from aortic arch which is normal variant. No significant plaque or stenosis. No significant plaque or stenosis in the common or internal carotid a rteries bilaterally. Patent external carotid arteries bilaterally without significant stenosis. Right vertebral artery is larger caliber dominant. Vertebral arteries are patent to the basilar junction. Patent bilateral posterior communicating arteries are seen. Patent Anterior communicating artery. No large vessel occlusion or aneurysm in the anterior posterior circulations Other: At least small size bilateral pleural effusions are partially imaged. Right internal jugular d ialysis catheter terminates outside the field of view IMPRESSION: No significant vascular abnormality is seen. At least small bilateral pleural effusions are partially imaged. NASCET criteria was used in interpretation of this exam?
[2024-02-18] MEDS: ONDANSETRON 4 MG/2 ML VIAL IVP STA (06:07)
--- NOTE | 2024-02-18 06:42 | ED ---
Neuro HPI - General Chief Complaint: Neuro Symptoms/Deficit Stated Complaint: pos stroke Time Seen by Provider: 02/18/24 05:06 Source: patient, EMS Mode of arrival: EMS Limitations: no limitations - History of Present Illness Is the patient presenting with stroke symptoms?: No Initial Comments: Marita is a 34-year-old female with extensive past medical history most significant for recent admissions for end-stage renal disease on dialysis, episodes of hypertensive emergency. Patient does have a history of stroke with right eye blindness. Patient presented to the ER today with complaint of 3 days of headache and waking at 2 AM this morning feeling like she has weakness in her right arm right leg. She states her right side of her face feels numb her right leg feels numb which is different from her chronic neuropathy. However after further questioning patient does state that she does feel maybe the right sided weakness has been present for the entire time she has had the headache may be 2 to 3 days. EMS was called for evaluation of a possible stroke and it was found to be profoundly hypertensive with systolic blood pressure over 220. History of same: Yes - Related Data Home Medications: Home Medications Medication Instructions Recorded Confirmed Levothyroxine Sodium [Synthroid] 175 mcg PO DAILY@0600 10/22/23 02/18/24 Sertraline [Zoloft] 200 mg PO DAILY@0800 10/22/23 02/18/24 Atorvastatin [Lipitor] 40 mg PO HS@209912/27/23 02/18/24 Divalproex ER [Depakote ER] 500 mg PO BID@0800,1700 12/27/23 02/18/24 Ondansetron [Zofran] 4 mg PO Q8HR PRN 12/27/23 02/18/24 Pantoprazole [Protonix] 40 mg PO DAILY@0600 12/27/23 02/18/24 [place] Caps 1 cap PO HS@209912/27/23 02/18/24 methocarbamoL [Robaxin-750] 750 mg PO QID@06,12,17,21 12/27/23 02/18/24 Aspirin 81 mg PO DAILY@0800 02/05/24 02/18/24 Docusate [Colace] 100 mg PO DAILY@0800 02/05/24 02/18/24 Lidocaine 4% Patch 1 patch TOPICAL DAILY@79902/05/24 02/18/24 Magnesium Hydroxide [Milk of 7,200 mg PO DAILY PRN 02/05/24 02/18/24 Magnesia Concentrate] Menthol [Biofreeze] 1 applic TOPICAL BID PRN 02/05/24 02/18/24 NIFEdipine XL [Procardia XL] 60 mg PO BID@0800,1700 02/05/24 02/18/24 Sevelamer [Renvela] 1,600 mg PO AC-TID@07,11,1630 02/05/24 02/18/24 Torsemide [Demadex] 40 mg PO DAILY@0800 02/05/24 02/18/24 bisacodyL [Dulcolax] 10 mg RECTAL DAILY PRN 02/05/24 02/18/24 Acetaminophen [Tylenol] 650 mg PO Q4H PRN 02/18/24 02/18/24 Biotene Dry Mouth/Throat 10 ml PO BID PRN 02/18/24 02/18/24 INSULIN ASPART (NovoLOG) [NovoLOG 7 unit SQ AC-BID@0700,1200 02/18/24 02/18/24 (formulary)] INSULIN ASPART (NovoLOG) [NovoLOG See Protocol SQ ACHS 02/18/24 02/18/24 (formulary)] Insulin Detemir (Levemir) [Levemir] 12 unit SQ HS 02/18/24 02/18/24 Insulin Detemir (Levemir) [Levemir] 20 unit SQ DAILY 02/18/24 02/18/24 Previous Rx's Medication Instructions Recorded INSULIN ASPART (NovoLOG) [NovoLOG 10 unit SQ AC-SUPPER each 02/14/24 (formulary)] Ipratropium-Albuterol Nebulize 3 ml INHALATION RT-TID PRN each 02/14/24 [Duoneb 0.5 mg-3 mg/3 ml Soln] Isosorbide Mononitrate ER [Imdur] 30 mg PO DAILY tab 02/14/24 Metoclopramide [Reglan] 5 mg PO AC-TID tab 02/14/24 polyethylene glycoL 3350 [Miralax] 17 gm PO AC-LUNCH #527 gm 02/14/24 ALPRAZolam [Xanax] 0.5 mg PO BID PRN #20 tab 02/25/24 ARIPiprazole [Abilify] 5 mg PO DAILY tab 02/25/24 Baclofen [Lioresal] 10 mg PO TID PRN tab 02/25/24 Butalb/APAP/Caff 50-325-40Mg 1 each PO Q4HR PRN #20 tab 02/25/24 [Fioricet 50-325-40] Darbepoetin Artur [Aranesp] 40 mcg SQ Q7D each 02/25/24 HYDROcodone/APAP 7.5-325MG [[place] 1 each PO Q8HR PRN #12 tab 02/25/24 7.5-325] Labetalol [Trandate] 400 mg PO BID tab 02/25/24 Melatonin 1 mg PO HS tab 02/25/24 cloNIDine HCL [Catapres] 0.3 mg PO TID tab 02/25/24 hydrALAZINE HCL [Apresoline] 150 mg PO TID tab 02/25/24 minoxidiL [Loniten] 2.5 mg PO DAILY tab 02/25/24 traZODone HCL [Desyrel] 50 mg PO HS tab 02/25/24 Allergies/Adverse Reactions: Allergies Allergy/AdvReac Type Severity Reaction Status Date / Time hydromorphone HCl Allergy Anaphylaxis Verified 02/18/24 09:23 [From Dilaudid] propoxyphene Allergy Rash/Hives Verified 02/18/24 09:23 [From Darvocet-N] tramadol Allergy Anaphylaxis Verified 02/18/24 09:23 ibuprofen [From Motrin] AdvReac unable to Verified 02/18/24 09:23 take due to kidney disease venom-honey bee AdvReac passes out Verified 02/18/24 09:23 [bee venom (honey bee)] Review of Systems ROS Statement: Those systems with pertinent positive or pertinent negative responses have been documented in the HPI. ROS Other: All systems not noted in ROS Statement are negative. General Exam - General Exam Comments Initial Comments: Physical Exam GENERAL: Chronically ill-appearing female HENT: Normocephalic, Atraumatic. EYES: PERRL, EOMI PULMONARY: Unlabored respirations. CARDIOVASCULAR: RRR Warm and well perfused extremities ABDOMEN: Non-distended SKIN: No rashes or bruising : Deferred NEUROLOGIC: Alert and oriented Slurred speech Right arm weakness MUSCULOSKELETAL: no apparent injury PSYCHIATRIC: No SI/HI Limitations: no limitations General appearance: alert Stroke MDM - Lab Data Result diagrams: 02/24/24 08:44 02/24/24 08:44 Lab Results 02/18/24 02/18/24 02/18/24 Range/Units 05:07 05:08 05:08 WBC 15.3 H (3.8-10.6) k/uL RBC 3.17 L (3.80-5.40) m/uL Hgb 10.0 L D (11.4-16.0) gm/dL Hct 30.5 L (34.0-46.0) % MCV 96.2 (80.0-100.0) fL MCH 31.4 (25.0-35.0) pg MCHC 32.7 (31.0-37.0) g/dL RDW 16.5 H (11.5-15.5) % Plt Count 445 (150-450) k/uL MPV 7.9 Neutrophils % 65 % Lymphocytes % 12 % Monocytes % 5 % Eosinophils % 16 % Basophils % 1 % Neutrophils # 9.9 H (1.3-7.7) k/uL Lymphocytes # 1.8 (1.0-4.8) k/uL Monocytes # 0.8 (0-1.0) k/uL Eosinophils # 2.4 H (0-0.7) k/uL Basophils # 0.1 (0-0.2) k/uL Anisocytosis Slight Macrocytosis Slight PT 10.8 (10.0-12.5) sec INR 1.0 (<1.2) APTT 25.3 (22.0-30.0) sec Sodium (137-145) mmol/L Potassium (3.5-5.1) mmol/L Chloride (98-107) mmol/L Carbon Dioxide (22-30) mmol/L Anion Gap mmol/L BUN (7-17) mg/dL Creatinine (0.52-1.04) mg/dL Est GFR (CKD-EPI)AfAm (>60 ml/min/1.73 sqM) Est GFR (CKD-EPI)NonAf (>60 ml/min/1.73 sqM) Glucose (74-99) mg/dL POC Glucose (mg/dL) 255 H (70-110) mg/dL POC Glu Denial Resolution Specialist ID Marisa Phan Estimated Ave Glu mg/dL mg/dL Hemoglobin A1c (<=6.0) % Calcium (8.4-10.2) mg/dL Total Bilirubin (0.2-1.3) mg/dL AST (14-36) U/L ALT (4-34) U/L Alkaline Phosphatase (38-126) U/L Troponin I (0.000-0.034) ng/mL Total Protein (6.3-8.2) g/dL Albumin (3.5-5.0) g/dL 02/18/24 02/18/24 02/18/24 Range/Units 05:08 05:08 05:08 WBC (3.8-10.6) k/uL RBC (3.80-5.40) m/uL Hgb (11.4-16.0) gm/dL Hct (34.0-46.0) % MCV (80.0-100.0) fL MCH (25.0-35.0) pg MCHC (31.0-37.0) g/dL RDW (11.5-15.5) % Plt Count (150-450) k/uL MPV Neutrophils % % Lymphocytes % % Monocytes % % Eosinophils % % Basophils % % Neutrophils # (1.3-7.7) k/uL Lymphocytes # (1.0-4.8) k/uL Monocytes # (0-1.0) k/uL Eosinophils # (0-0.7) k/uL Basophils # (0-0.2) k/uL Anisocytosis Macrocytosis PT (10.0-12.5) sec INR (<1.2) APTT (22.0-30.0) sec Sodium 134 L (137-145) mmol/L Potassium 4.8 (3.5-5.1) mmol/L Chloride 93 L (98-107) mmol/L Carbon Dioxide 34 H (22-30) mmol/L Anion Gap 7 mmol/L BUN 25 H (7-17) mg/dL Creatinine 3.97 H (0.52-1.04) mg/dL Est GFR (CKD-EPI)AfAm 16 (>60 ml/min/1.73 sqM) Est GFR (CKD-EPI)NonAf 14 (>60 ml/min/1.73 sqM) Glucose 250 H (74-99) mg/dL POC Glucose (mg/dL) (70-110) mg/dL POC Glu Denial Resolution Specialist ID Estimated Ave Glu mg/dL 140 mg/dL Hemoglobin A1c 6.5 H (<=6.0) % Calcium 9.1 (8.4-10.2) mg/dL Total Bilirubin 0.7 (0.2-1.3) mg/dL AST 24 (14-36) U/L ALT 40 H (4-34) U/L Alkaline Phosphatase 148 H (38-126) U/L Troponin I <0.012 (0.000-0.034) ng/mL Total Protein 6.2 L (6.3-8.2) g/dL Albumin 3.8 (3.5-5.0) g/dL - NIH Stroke Scale 1a. Level of Consciousness: (0) alert 1b. LOC Questions: (0) answers correctly 1c. LOC Commands: (0) performs tasks correctly 2. Best Gaze: (0) normal 4. Facial Palsy: (1) minor paralysis 5a. Motor Arm Left: (0) no drift 5b. Motor Arm Right: (1) drift 6a. Motor Leg Left: (0) no drift 6b. Motor Leg Right: (1) drift 7. Limb Ataxia: (0) absent 8. Sensory: (1) mild/moderate sensory loss 9. Best Language: (0) no aphasia 10. Dysarthria: (0) normal 11. Extinction/Inattention: (0) no abnormality - Thrombolytic Inclusion/Exclusion Thrombolytic Exclusion Criteria: Onset of Symptoms Unknown Thrombolytic Contraindications: Diastolic Pressure > 110, Systolic Pressure > 185 - Core Measures Door to CT Read: 24 min Door to Neurologist Consult: 10 min AMI Core Measures Followed: Yes - Medical Decision Making Was pt. sent in by a medical professional or institution (, PA, INFORMATION ASSURANCE, urgent c are, hospital, or assisted...) When possible be specific @ -Yes sent from assisted Did you speak to anyone other than the patient for history (EMS, parent, family, police, friend...)? What history was obtained from this source @ -EMS Did you review nursing and triage notes (agree or disagree)? Why? @ -I reviewed and agree with nursing and triage notes Were old charts reviewed (outside hosp., previous admission, EMS record, old EKG, old radiological studies, urgent care reports/EKG's, assisted records)? Report findings @ -Previous admission was reviewed Differential Diagnosis (chest pain, altered mental status, abdominal pain women, abdominal pain men, vaginal bleeding, weakness, fever, dyspnea, syncope, headache, dizziness, GI bleed, back pain, seizure, CVA, palpatations, mental health)? @ -Differential Weakness: Hypoglycemia, shock, sepsis, hyponatremia, anemia, infection, OK, ETOH, adverse medicine reaction, overdose, stroke, this is not meant to be an all-inclusive list. EKG interpreted by me (3pts min.). @ -As above X-rays interpreted by me (1pt min.). @ -Chronic fluid overload no pneumothorax no pneumonia CT interpreted by me (1pt min.). @ -CT and CTA with no obvious masses or bleeds, I see no large clots U/S interpreted by me (1pt. min.). @ -None done What testing was considered but not performed or refused? (CT, X-rays, U/S, labs)? Why? @ -None What meds were considered but not given or refused? Why? @ -None Did you discuss the management of the patient with other professionals (professionals i.e. , PA, INFORMATION ASSURANCE, lab, RT, psych nurse, criminal justice social worker, thermal engineer, teacher, forest officer, renal case manager)? Give summary @ -Discussed with consulting physician, neurologist Dr. Mccullough, painter foreman Dr. Lim, Was smoking cessation discussed for >3mins.? @ -No Was critical care preformed (if so, how long)? @ -Yes, 35 minutes Were there social determinants of health that impacted care today? How? (Homelessness, low income, unemployed, alcoholism, drug addiction, transportation, low edu. Level, literacy, decrease access to med. care, usp, rehab)? @ -Unemployed Was there de-escalation of care discussed even if they declined (Discuss DNR or withdrawal of care, Hospice)? DNR status @ -No What co-morbidities impacted this encounter? (DM, HTN, Smoking, COPD, CAD, Cancer, CVA, ARF, Chemo, Hep., AIDS, mental health diagnosis, sleep apnea, morb id obesity)? @ -Hypertension, end-stage renal disease, type 1 diabetes Was patient admitted / discharged? Hospital course, mention meds given and route, prescriptions, significant lab abnormalities, going to OR and other pertinent info. @ -Admit The patient was seen and evaluated immediately upon arrival to the emergency department. Upon arrival patient is reporting 2 to 3 hours of right-sided weakness and numbness. Code stroke was activated. Patient was found to be profoundly hypertensive and Cleviprex drip was ordered for treatment of hypertension. Patient care was discussed with on-call interventional neurologist given the patient's history of blood pressure he recommended optimiz ing the blood pressure and follow-up. Patient's blood pressure improved significantly with Cleviprex. CT and CTA were negative. Patient was feeling better after the medication she reported that she had intermittent numbness in the right arm and leg for 2 to 3 days. Not an acute change today she just cannot bear the headache anymore. Patient was treated with morphine for the headache. Patient will be admitted to the hospital for emergent dialysis due to having received IV contrast. Due to being on Cleviprex for hypertensive emergency patient care was discussed with on-call activity director who accepts the patient to the ICU. Undiagnosed new problem with uncertain prognosis? @ -No Drug Therapy requiring intensive monitoring for toxicity (Heparin, Nitro, Insulin, Cardizem)? @ -No Were any procedures done? @ -No Diagnosis/symptom? @ -Hypertensive emergency Acute, or Chronic, or Acute on Chronic? @ -Acute Uncomplicated (without systemic symptoms) or Complicated (systemic symptoms)? @ -Complicated Side effects of treatment? @ -No Exacerbation, Progression, or Severe Exacerbation? @ -No Poses a threat to life or bodily function? How? (Chest pain, [place], OK, pneumonia, PE, COPD, DKA, ARF, appy, cholecystitis, CVA, Diverticulitis, Homicidal, Suicidal, threat to staff... and all critical care pts) @ -Yes can result in stroke, intracranial hemorrhage and - Radiology Data Radiology results: image reviewed interpreted by me: No masses or bleeds - EKG Data -: EKG Interpreted by Me EKG shows normal: sinus rhythm Rate: normal EKG interpreted by me, EKG obtained as part of stroke workup, EKG obtained at 5:20 PM, EKG with a rate of 90 sinus rhythm normal axis normal intervals, CO 130 QRS 80 QTc [address] elevations or depressions no evidence of acute ischemia or infarction. 02/18/24 08:07 Past Medical History Past Medical History: Diabetes Mellitus, GERD/Reflux, Hypertension, Renal Disease, Seizure Disorder, Thyroid Disorder Additional Past Medical History / Comment(s): Neuropathy, last seizure 2020, gastroparesis, headaches with dialysis, states "fast heart rate" since giving ., receives Hemodialysis Wednesday- and Saturdays at [facility]., right chest hemodialysis catheter., severe HTN. patient awaiting Kidney and Pancrease Transplant. , states sometimes she has had stroke -like symptoms but no stroke., hx of c-diff 2013. History of Any Multi-Drug Resistant Organisms: None Reported Date of last positivie culture/infection: 2013 MDRO Source:: stool Past Surgical History: Adenoidectomy, Section, Cholecystectomy, Orthopedic Surgery, Tonsillectomy Additional Past Surgical History / Comment(s): 2 KNEE SCOPES, EAR TUBES, additional left knee surgery related to fracture, new port a cath jul 29, eye surgeries for diabetic retinopathy. Past Anesthesia/Blood Transfusion Reactions: Previous Problems w/ Anesthesia Additional Past Anesthesia/Blood Transfusion Reaction / Comment(s): confusion Past Psychological History: Anxiety, Depression Smoking Status: Former smoker Past Alcohol Use History: None Reported Past Drug Use History: Marijuana, Methamphetamine - Past Family History Father Family Medical History: Unable to Obtain Mother Family Medical History: No Reported History Grandfather Family Medical History: Coronary Artery Disease (CAD) Additional Family Medical History / Comment(s): Diabetes mellitus type 2 Course Vital Signs 02/18/24 02/18/24 02/18/24 05:03 05:28 05:33 Temperature 98.9 F Pulse Rate 101 H 91 90 Pulse Rate [ Commercial Door Installer ] Respiratory 16 22 20 Rate Blood Pressure 213/117 194/110 199/110 Blood Pressure [Left Arm] O2 Sat by Pulse 98 92 L 91 L Oximetry 02/18/24 02/18/24 02/18/24 05:37 05:39 05:47 Temperature Pulse Rate 92 93 97 Pulse Rate [ Commercial Door Installer ] Respiratory 20 20 18 Rate Blood Pressure 199/113 168/93 151/88 Blood Pressure [Left Arm] O2 Sat by Pulse 91 L 91 L 93 L Oximetry 02/18/24 02/18/24 02/18/24 05:50 05:53 06:07 Temperature Pulse Rate 98 96 97 Pulse Rate [ Commercial Door Installer ] Respiratory 16 Rate Blood Pressure 150/83 148/86 139/89 Blood Pressure [Left Arm] O2 Sat by Pulse 93 L Oximetry 02/18/24 02/18/24 02/18/24 06:14 06:19 06:48 Temperature Pulse Rate 96 95 102 H Pulse Rate [ Commercial Door Installer ] Respiratory 18 18 18 Rate Blood Pressure 140/91 140/86 151/84 Blood Pressure [Left Arm] O2 Sat by Pulse 95 95 95 Oximetry 02/18/24 02/18/24 02/18/24 06:55 07:45 07:51 Temperature 98.0 F Pulse Rate 104 H 92 90 Pulse Rate [ Commercial Door Installer ] Respiratory 18 18 18 Rate Blood Pressure 144/82 122/65 Blood Pressure [Left Arm] O2 Sat by Pulse 97 97 96 Oximetry 02/18/24 02/18/24 02/18/24 08:21 08:51 08:58 Temperature Pulse Rate 89 90 93 Pulse Rate [ Commercial Door Installer ] Respiratory 18 18 18 Rate Blood Pressure 120/79 130/77 128/79 Blood Pressure [Left Arm] O2 Sat by Pulse 97 96 97 Oximetry 02/18/24 02/18/24 02/18/24 09:21 09:58 10:00 Temperature Pulse Rate 92 92 98 Pulse Rate [ Commercial Door Installer ] Respiratory 18 18 18 Rate Blood Pressure 127/78 127/72 122/72 Blood Pressure [Left Arm] O2 Sat by Pulse 95 94 L 95 Oximetry 02/18/24 02/18/24 02/18/24 10:21 10:51 11:21 Temperature Pulse Rate 85 89 87 Pulse Rate [ Commercial Door Installer ] Respiratory 18 18 18 Rate Blood Pressure 125/72 133/82 150/78 Blood Pressure [Left Arm] O2 Sat by Pulse 98 98 98 Oximetry 02/18/24 02/18/24 02/18/24 11:46 11:51 12:21 Temperature Pulse Rate 86 88 87 Pulse Rate [ Commercial Door Installer ] Respiratory 18 18 18 Rate Blood Pressure 165/98 169/87 170/98 Blood Pressure [Left Arm] O2 Sat by Pulse 98 98 98 Oximetry 02/18/24 02/18/24 02/18/24 12:43 12:51 13:07 Temperature Pulse Rate 86 81 81 Pulse Rate [ Commercial Door Installer ] Respiratory 18 18 18 Rate Blood Pressure 183/105 181/100 Blood Pressure [Left Arm] O2 Sat by Pulse 98 98 98 Oximetry 02/18/24 02/18/24 02/18/24 13:51 13:56 14:33 Temperature Pulse Rate 90 90 87 Pulse Rate [ Commercial Door Installer ] Respiratory 18 18 Rate Blood Pressure 187/100 187/100 Blood Pressure [Left Arm] O2 Sat by Pulse 98 98 Oximetry 02/18/24 02/18/24 02/18/24 14:40 14:45 14:51 Temperature Pulse Rate 90 84 82 Pulse Rate [ Commercial Door Installer ] Respiratory 18 18 Rate Blood Pressure 179/96 172/98 Blood Pressure [Left Arm] O2 Sat by Pulse 97 98 Oximetry 02/18/24 02/18/24 02/18/24 15:51 16:46 16:51 Temperature 98.0 F Pulse Rate 83 81 90 Pulse Rate [ Commercial Door Installer ] Respiratory 18 18 18 Rate Blood Pressure 160/89 163/88 174/99 Blood Pressure [Left Arm] O2 Sat by Pulse 98 97 98 Oximetry 02/18/24 02/18/24 02/18/24 17:04 17:35 17:51 Temperature 98.6 F Pulse Rate 90 81 Pulse Rate [ 83 Commercial Door Installer ] Respiratory 16 18 18 Rate Blood Pressure 161/85 Blood Pressure 180/94 [Left Arm] O2 Sat by Pulse 98 96 Oximetry 02/18/24 02/18/24 02/18/24 18:09 18:51 19:47 Temperature 98.4 F Pulse Rate 82 86 76 Pulse Rate [ Commercial Door Installer ] Respiratory 18 18 16 Rate Blood Pressure 165/92 151/97 Blood Pressure [Left Arm] O2 Sat by Pulse 96 97 97 Oximetry 02/18/24 20:09 Temperature Pulse Rate Pulse Rate [ Commercial Door Installer ] Respiratory Rate Blood Pressure Blood Pressure [Left Arm] O2 Sat by Pulse 98 Oximetry Critical Care Time Critical Care Time: Yes Total Critical Care Time: 35 Disposition Clinical Impression: Hypertensive emergency, Pulmonary edema, ESRD (end stage renal disease) Disposition: ADMITTED IP TO THIS [facility] Condition: Serious Is patient prescribed a controlled substance at d/c from ED?: No
[2024-02-18] MEDS: MORPHINE SULFATE 4 MG/ML SYRINGE IVP STA ×2 (06:43→09:49)
[2024-02-18] MEDS ORDERED: NALOXONE 0.4 MG/ML 1 ML VIAL IV PRN (07:13)
[2024-02-18 09:00] LABS: Glucose,Whole Blood 287 mg/dL (70-110)
--- NOTE | 2024-02-18 10:26 | P.NPCON ---
History of Present Illness - Reason for Consult end stage renal disease - History of Present Illness patient is a 34-year-old female with end-stage renal disease maintained on hemodialysis on a Wednesday schedule. Patient was admitted from [facility] early this morning due to uncontrolled hypertension and hypertensive emergency. Blood pressure was 213/117 and patient complained of right-sided weakness. She is complaining of migraine headache which has been present for last 3 days. Blood pressure started to increase yesterday. Patient has been receiving all her antihypertensive medications as scheduled at [facility]. Patient has not missed any of her hemodialysis treatments. CTA of the brain was negative. Blood pressure has improved. Currently maintained on Cleviprex drip. Patient is maintained on clonidine patch which she has not taken off. Patient was just discharged 2 days ago. Review of Systems as per HPI Past Medical History Past Medical History: Diabetes Mellitus, GERD/Reflux, Hypertension, Renal Disea se, Seizure Disorder, Thyroid Disorder Additional Past Medical History / Comment(s): Neuropathy, last seizure 2020, gastroparesis, headaches with dialysis, states "fast heart rate" since giving ., receives Hemodialysis Wednesday- and Saturdays at [facility]., right chest hemodialysis catheter., severe HTN. patient awaiting Kidney and Pancrease Transplant. , states sometimes she has had stroke -like symptoms but no stroke., hx of c-diff 2013. History of Any Multi-Drug Resistant Organisms: None Reported Date of last positivie culture/infection: 2013 MDRO Source:: stool Past Surgical History: Adenoidectomy, Section, Cholecystectomy, Orthopedic Surgery, Tonsillectomy Additional Past Surgical History / Comment(s): 2 KNEE SCOPES, EAR TUBES, additional left knee surgery related to fracture, new port a cath jul 29, eye surgeries for diabetic retinopathy. Past Anesthesia/Blood Transfusion Reactions: Previous Problems w/ Anesthesia Additional Past Anesthesia/Blood Transfusion Reaction / Comment(s): confusion Past Psychological History: Anxiety, Depression Smoking Status: Former smoker Past Alcohol Use History: None Reported Past Drug Use History: Marijuana, Methamphetamine - Past Family History Father Family Medical History: Unable to Obtain Mother Family Medical History: No Reported History Grandfather Family Medical History: Coronary Artery Disease (CAD) Additional Family Medical History / Comment(s): Diabetes mellitus type 2 Medications and Allergies Home Medications Medication Instructions Recorded Confirmed Type Levothyroxine Sodium [Synthroid] 175 mcg PO DAILY@0600 10/22/23 02/18/24 History Sertraline [Zoloft] 200 mg PO DAILY@0800 10/22/23 02/18/24 History Atorvastatin [Lipitor] 40 mg PO HS@209912/27/23 02/18/24 History Divalproex ER [Depakote ER] 500 mg PO BID@0800,1700 12/27/23 02/18/24 History Ondansetron [Zofran] 4 mg PO Q8HR PRN 12/27/23 02/18/24 History Pantoprazole [Protonix] 40 mg PO DAILY@0600 12/27/23 02/18/24 History [place] Caps 1 cap PO HS@209912/27/23 02/18/24 History carvediloL [Coreg] 25 mg PO BID@0600,1700 12/27/23 02/18/24 History hydrALAZINE HCL [Apresoline] 100 mg PO TID@0600,1400,2200 12/27/23 02/18/24 History methocarbamoL [Robaxin-750] 750 mg PO QID@06,12,17,21 12/27/23 02/18/24 History Aspirin 81 mg PO DAILY@0800 02/05/24 02/18/24 History Docusate [Colace] 100 mg PO DAILY@0800 02/05/24 02/18/24 History Lidocaine 4% Patch 1 patch TOPICAL DAILY@0800 02/05/24 02/18/24 History Magnesium Hydroxide [Milk of 7,200 mg PO DAILY PRN 02/05/24 02/18/24 History Magnesia Concentrate] Menthol [Biofreeze] 1 applic TOPICAL BID PRN 02/05/24 02/18/24 History NIFEdipine XL [Procardia XL] 60 mg PO BID@0800,1700 02/05/24 02/18/24 History Sevelamer [Renvela] 1,600 mg PO AC-TID@07,11,1630 02/05/24 02/18/24 History Torsemide [Demadex] 40 mg PO DAILY@0800 02/05/24 02/18/24 History bisacodyL [Dulcolax] 10 mg RECTAL DAILY PRN 02/05/24 02/18/24 History ALPRAZolam [Xanax] 0.25 mg PO QID PRN #60 tab 02/14/24 02/18/24 Rx HYDROcodone/APAP 5-325MG [[place] 1 tab PO Q8H PRN #20 tab 02/14/24 02/18/24 Rx 5-325] INSULIN ASPART (NovoLOG) [NovoLOG 10 unit SQ AC-SUPPER each 02/14/24 02/18/24 Rx (formulary)] Ipratropium-Albuterol Nebulize 3 ml INHALATION RT-TID PRN each 02/14/24 02/18/24 Rx [Duoneb 0.5 mg-3 mg/3 ml Soln] Isosorbide Mononitrate ER [Imdur] 30 mg PO DAILY tab 02/14/24 02/18/24 Rx Metoclopramide [Reglan] 5 mg PO AC-TID tab 02/14/24 02/18/24 Rx polyethylene glycoL 3350 [Miralax] 17 gm PO AC-LUNCH #527 gm 02/14/24 02/18/24 Rx Acetaminophen [Tylenol] 650 mg PO Q4H PRN 02/18/24 02/18/24 History Biotene Dry Mouth/Throat 10 ml PO BID PRN 02/18/24 02/18/24 History INSULIN ASPART (NovoLOG) [NovoLOG 7 unit SQ AC-BID@0700,1200 02/18/24 02/18/24 History (formulary)] INSULIN ASPART (NovoLOG) [NovoLOG See Protocol SQ ACHS 02/18/24 02/18/24 History (formulary)] Insulin Detemir (Levemir) [Levemir] 12 unit SQ HS 02/18/24 02/18/24 History Insulin Detemir (Levemir) [Levemir] 20 unit SQ DAILY 02/18/24 02/18/24 History Na Phos,M-B/Na Phos,Di-Ba [Fleet 133 ml RECTAL DAILY PRN 02/18/24 02/18/24 History Adult] cloNIDine 0.3 MG/24HR PATCH 1 patch TRANSDERM MO 02/18/24 02/18/24 History [Catapres-TTS] Allergies Allergy/AdvReac Type Severity Reaction Status Date / Time hydromorphone HCl Allergy Anaphylaxis Verified 02/18/24 09:23 [From Dilaudid] propoxyphene Allergy Rash/Hives Verified 02/18/24 09:23 [From Darvocet-N] tramadol Allergy Anaphylaxis Verified 02/18/24 09:23 ibuprofen [From Motrin] AdvReac unable to Verified 02/18/24 09:23 take due to kidney disease venom-honey bee AdvReac passes out Verified 02/18/24 09:23 [bee venom (honey bee)] Physical Exam Vitals: Vital Signs Temp Pulse Resp BP Pulse Ox 02/18/24 09:58 92 18 127/72 94 L 02/18/24 09:21 92 18 127/78 95 02/18/24 08:58 93 18 128/79 97 02/18/24 08:51 90 18 130/77 96 02/18/24 08:21 89 18 120/79 97 02/18/24 07:51 90 18 96 02/18/24 07:45 98.0 F 92 18 122/65 97 02/18/24 06:55 104 H 18 144/82 97 02/18/24 06:48 102 H 18 151/84 95 02/18/24 06:19 95 18 140/86 95 02/18/24 06:14 96 18 140/91 95 02/18/24 06:07 97 16 139/89 93 L 02/18/24 05:53 96 148/86 02/18/24 05:50 98 150/83 02/18/24 05:47 97 18 151/88 93 L 02/18/24 05:39 93 20 168/93 91 L 02/18/24 05:37 92 20 199/113 91 L 02/18/24 05:33 90 20 199/110 91 L 02/18/24 05:28 91 22 194/110 92 L 02/18/24 05:03 98.9 F 101 H 16 213/117 98 Intake and Output 02/17/24 02/18/24 02/18/24 22:59 06:59 14:59 Intake Total 1.900 33.133 Balance 1.900 33.133 Intake: Intake, IV Titration 1.900 33.133 Amount Clevidipine Butyrate 25 1.900 33.133 mg In Empty Bag 1 bag @ 1 MG/HR 2 mls/hr IV .Q24H [facility] Rx#:[id number] Other: Weight 68.946 kg patient is awake, comfortable, no acute distress Examination of the heart S1 and S2 Examination of the lungs bilateral breath sounds are heard Abdomen is soft nontender Examination lower extremity shows no significant edema No focal deficits noted. Moving all 4 extremities Results - Lab Results Most recent lab results Calcium 9.1 mg/dL (8.4-10.2) 02/18/24 05:08 02/18/24 05:08 02/18/24 05:08 Assessment and Plan Assessment: 1. End-stage renal disease on hemodialysis on a Wednesday schedule 2. Volume overload significantly improved over the last 1 week. 3. Hypertension with hypertensive emergency on admission. Currently maintained on Cleviprex drip area blood pressure is controlled and we will try to wean off Cleviprex and resume oral medications. Pain control for headache. 4. Diabetic gastroparesis and nausea and vomiting, improved with Reglan. However Reglan has caused galactorrhea which seems to be improving per patient. 5. Right-sided weakness seems to have improved. CT of the brain was negative. CTA negative as well 6. uncontrolled diabetes Plan: hemodialysis today and repeat in a.m. Resume oral medications and wean off Cleviprex drip. Continue with clonidine patch. Continue Reglan Thank you for the consultation. We will continue to follow the patient with you during her hospitalization.
[2024-02-18] MEDS: cloNIDine 0.2 MG/24HR PATCH TRANSDERM SCH (10:34)
--- NOTE | 2024-02-18 11:13 | P.CNPUL ---
History of Present Illness Consult date: 02/18/24 Requesting physician: Jason Morgan Reason for consult: other Chief complaint: Hypertensive emergency. History of present illness: Pulmonary consult dated February 18, 2024. This is a 34-year-old female with a history of multiple medical problems, who was seen in the emergency department, trauma room #1. The patient was admitted with a diagnosis of hypertensive emergency. Her blood pressure was well over 200 systolic. The patient was started on Cleviprex, and is currently on Cleviprex at 7 mg an hour. She is getting oxygen at 3 L by nasal cannula. CT of the brain was negative for anything acute, and angiography CT, was also negative. The patient was brought in from [facility]. The patient was recently in the hospital, on February 04, for fluid overload, hypoxemic respiratory failure, end-stage renal disease, hyperkalemia, anemia of chronic disease, diabetes, recent CVA with right-sided weakness, and optic neuritis. The patient is very lethargic today in the emergency department. White count 15.3, hemoglobin 10, hematocrit 30.5, platelet count 445,000. Sodium 134, pota ssium 4.8, chloride 93, CO2 34, BUN 25, and creatinine 3.97. Glucose is 287. ALT is 40. Troponin less than 0.012. Albumin 3.8. Chest x-ray shows fluid overload. Review of Systems REVIEW OF SYSTEMS: CONSTITUTIONAL: Weakness, lethargy. NEUROLOGIC: Mental status changes. HEENT: [ Negative.] CARDIAC: [Negative.] PULMONARY: Shortness of breath. GI: [Negative.] : [Negative.] RHEUMATOLOGIC: [ Negative.] IMMUNOLOGIC: [ Negative.] ENDOCRINE: [Negative. ] DERMATOLOGIC: [Negative.] Past Medical History Past Medical History: Diabetes Mellitus, GERD/Reflux, Hypertension, Renal Disease, Seizure Disorder, Thyroid Disorder Additional Past Medical History / Comment(s): Neuropathy, last seizure 2020, gastroparesis, headaches with dialysis, states "fast heart rate" since giving ., receives Hemodialysis Wednesday- and Saturdays at [facility] [place]., right chest hemodialysis catheter., severe HTN. patient awaiting Kidney and Pancrease Transplant. , states sometimes she has had stroke -like symptoms but no stroke., hx of c-diff 2013. History of Any Multi-Drug Resistant Organisms: None Reported Date of last positivie culture/infection: 2013 MDRO Source:: stool Past Surgical History: Adenoidectomy, Section, Cholecystectomy, Orthopedic Surgery, Tonsillectomy Additional Past Surgical History / Comment(s): 2 KNEE SCOPES, EAR TUBES, additi onal left knee surgery related to fracture, new port a cath sept , eye surgeries for diabetic retinopathy. Past Anesthesia/Blood Transfusion Reactions: Previous Problems w/ Anesthesia Additional Past Anesthesia/Blood Transfusion Reaction / Comment(s): confusion Past Psychological History: Anxiety, Depression Smoking Status: Former smoker Past Alcohol Use History: None Reported Past Drug Use History: Marijuana, Methamphetamine - Past Family History Father Family Medical History: Unable to Obtain Mother Family Medical History: No Reported History Grandfather Family Medical History: Coronary Artery Disease (CAD) Additional Family Medical History / Comment(s): Diabetes mellitus type 2 Medications and Allergies Home Medications Medication Instructions Recorded Confirmed Type Levothyroxine Sodium [Synthroid] 175 mcg PO DAILY@0600 10/22/23 02/18/24 History Sertraline [Zoloft] 200 mg PO DAILY@0800 10/22/23 02/18/24 History Atorvastatin [Lipitor] 40 mg PO HS@209912/27/23 02/18/24 History Divalproex ER [Depakote ER] 500 mg PO BID@0800,1700 12/27/23 02/18/24 History Ondansetron [Zofran] 4 mg PO Q8HR PRN 12/27/23 02/18/24 History Pantoprazole [Protonix] 40 mg PO DAILY@0600 12/27/23 02/18/24 History [place] Caps 1 cap PO HS@209912/27/23 02/18/24 History carvediloL [Coreg] 25 mg PO BID@0600,1700 12/27/23 02/18/24 History hydrALAZINE HCL [Apresoline] 100 mg PO TID@0600,1400,2200 12/27/23 02/18/24 History methocarbamoL [Robaxin-750] 750 mg PO QID@06,12,17,21 12/27/23 02/18/24 History Aspirin 81 mg PO DAILY@0800 02/05/24 02/18/24 History Docusate [Colace] 100 mg PO DAILY@0800 02/05/24 02/18/24 History Lidocaine 4% Patch 1 patch TOPICAL DAILY@0800 02/05/24 02/18/24 History Magnesium Hydroxide [Milk of 7,200 mg PO DAILY PRN 02/05/24 02/18/24 History Magnesia Concentrate] Menthol [Biofreeze] 1 applic TOPICAL BID PRN 02/05/24 02/18/24 History NIFEdipine XL [Procardia XL] 60 mg PO BID@0800,1700 02/05/24 02/18/24 History Sevelamer [Renvela] 1,600 mg PO AC-TID@07,11,1630 02/05/24 02/18/24 History Torsemide [Demadex] 40 mg PO DAILY@0800 02/05/24 02/18/24 History bisacodyL [Dulcolax] 10 mg RECTAL DAILY PRN 02/05/24 02/18/24 History ALPRAZolam [Xanax] 0.25 mg PO QID PRN #60 tab 02/14/24 02/18/24 Rx HYDROcodone/APAP 5-325MG [[place] 1 tab PO Q8H PRN #20 tab 02/14/24 02/18/24 Rx 5-325] INSULIN ASPART (NovoLOG) [NovoLOG 10 unit SQ AC-SUPPER each 02/14/24 02/18/24 Rx (formulary)] Ipratropium-Albuterol Nebulize 3 ml INHALATION RT-TID PRN each 02/14/24 02/18/24 Rx [Duoneb 0.5 mg-3 mg/3 ml Soln] Isosorbide Mononitrate ER [Imdur] 30 mg PO DAILY tab 02/14/24 02/18/24 Rx Metoclopramide [Reglan] 5 mg PO AC-TID tab 02/14/24 02/18/24 Rx polyethylene glycoL 3350 [Miralax] 17 gm PO AC-LUNCH #527 gm 02/14/24 02/18/24 Rx Acetaminophen [Tylenol] 650 mg PO Q4H PRN 02/18/24 02/18/24 History Biotene Dry Mouth/Throat 10 ml PO BID PRN 02/18/24 02/18/24 History INSULIN ASPART (NovoLOG) [NovoLOG 7 unit SQ AC-BID@0700,1200 02/18/24 02/18/24 History (formulary)] INSULIN ASPART (NovoLOG) [NovoLOG See Protocol SQ ACHS 02/18/24 02/18/24 History (formulary)] Insulin Detemir (Levemir) [Levemir] 12 unit SQ HS 02/18/24 02/18/24 History Insulin Detemir (Levemir) [Levemir] 20 unit SQ DAILY 02/18/24 02/18/24 History Na Phos,M-B/Na Phos,Di-Ba [Fleet 133 ml RECTAL DAILY PRN 02/18/24 02/18/24 History Adult] cloNIDine 0.3 MG/24HR PATCH 1 patch TRANSDERM MO 02/18/24 02/18/24 History [Catapres-TTS] Allergies Allergy/AdvReac Type Severity Reaction Status Date / Time hydromorphone HCl Allergy Anaphylaxis Verified 02/18/24 09:23 [From Dilaudid] propoxyphene Allergy Rash/Hives Verified 02/18/24 09:23 [From Darvocet-N] tramadol Allergy Anaphylaxis Verified 02/18/24 09:23 ibuprofen [From Motrin] AdvReac unable to Verified 02/18/24 09:23 take due to kidney disease venom-honey bee AdvReac passes out Verified 02/18/24 09:23 [bee venom (honey bee)] Physical Exam Osteopathic Statement: *. No significant issues noted on an osteopathic structural exam other than those noted in the History and Physical/Consult. Vitals: Vital Signs Temp Pulse Resp BP Pulse Ox 02/18/24 10:00 98 18 122/72 95 02/18/24 09:58 92 18 127/72 94 L 02/18/24 09:21 92 18 127/78 95 02/18/24 08:58 93 18 128/79 97 02/18/24 08:51 90 18 130/77 96 02/18/24 08:21 89 18 120/79 97 02/18/24 07:51 90 18 96 02/18/24 07:45 98.0 F 92 18 122/65 97 02/18/24 06:55 104 H 18 144/82 97 02/18/24 06:48 102 H 18 151/84 95 02/18/24 06:19 95 18 140/86 95 02/18/24 06:14 96 18 140/91 95 02/18/24 06:07 97 16 139/89 93 L 02/18/24 05:53 96 148/86 02/18/24 05:50 98 150/83 02/18/24 05:47 97 18 151/88 93 L 02/18/24 05:39 93 20 168/93 91 L 02/18/24 05:37 92 20 199/113 91 L 02/18/24 05:33 90 20 199/110 91 L 02/18/24 05:28 91 22 194/110 92 L 02/18/24 05:03 98.9 F 101 H 16 213/117 98 Intake and Output 02/17/24 02/18/24 02/18/24 22:59 06:59 14:59 Intake Total 1.900 33.133 Balance 1.900 33.133 Intake: Intake, IV Titration 1.900 33.133 Amount Clevidipine Butyrate 25 1.900 33.133 mg In Empty Bag 1 bag @ 1 MG/HR 2 mls/hr IV .Q24H [facility] Rx#:[id number] Other: Weight 68.946 kg No acute distress, lethargic, but arouses, currently on 3 L of oxygen. HEENT examination is grossly unremarkable. Mucous membranes are moist. No oral lesions. Neck supple. Full range of motion. No adenopathy thyromegaly or neck vein distention. Cardiovascular examination reveals regular rhythm rate. S1-S2 normal. No S3 or S4. No discernible murmur noted. HR is 98 bpm. Lungs reveal diffuse crackles. Breath sounds are equal bilaterally. No rhonchi. No wheezes. Breath sounds equal bilaterally. Saturations are 95%. Abdomen soft bowel sounds are heard. No masses or tenderness. Extremities are intact. No cyanosis clubbing or edema. Skin is without rash or lesion. Neurologic examination reveals the patient to be somewhat lethargic/somnolent. Results - Laboratory Findings CBC and BMP: 02/18/24 05:08 02/18/24 05:08 PT/INR, D-dimer PT 10.8 sec (10.0-12.5) 02/18/24 05:08 INR 1.0 (<1.2) 04/05/24 05:08 Abnormal lab findings: Abnormal Labs 02/18/24 02/18/24 02/18/24 05:07 05:08 05:08 WBC 15.3 H RBC 3.17 L Hgb 10.0 L D Hct 30.5 L RDW 16.5 H Neutrophils # 9.9 H Eosinophils # 2.4 H Sodium 134 L Chloride 93 L Carbon Dioxide 34 H BUN 25 H Creatinine 3.97 H Glucose 250 H POC Glucose (mg/dL) 255 H ALT 40 H Alkaline Phosphatase 148 H Total Protein 6.2 L 02/18/24 08:58 WBC RBC Hgb Hct RDW Neutrophils # Eosinophils # Sodium Chloride Carbon Dioxide BUN Creatinine Glucose POC Glucose (mg/dL) 287 H ALT Alkaline Phosphatase Total Protein - Diagnostic Findings Chest x-ray: image reviewed Assessment and Plan Assessment: Acute hypertensive urgency, with hypertensive encephalopathy, and mental status changes. Recent admission, in January 2024, for hypoxemic respiratory failure, and fluid overload. History of end-stage renal disease, currently on hemodialysis. Anemia of chronic disease. Diabetes mellitus. Recent CVA with right-sided weakness. History of optic neuritis. Plan: Plan dated February 18, 2024. Currently, the patient is on Cleviprex at 7 mg an hour. The patient is on nasal O2 at 3 L/min. CT scan of the brain was negative. Angiography CT was also negative. The patient's blood pressure is under better control. The patient has a history of multiple medical problems including end-stage renal disease, anemia of chronic disease, diabetes, optic neuritis, and previous CVA. The patient was hospitalized in January of this year, with an episode of hypoxemic respiratory failure, secondary to fluid overload. Labs, x-rays, medications are reviewed. We will continue to follow make recommendations along the way. Time with Patient: Greater than 30
[2024-02-18] MEDS ORDERED: NA PHOS,M-B/NA PHOS,DI-BA 133 ML ENEMA RECTAL PRN (12:51)
[2024-02-18] MEDS ORDERED: METHYL SALICYLATE-MENTHOL OINT (3 OZ TUBE) TOPICAL PRN (12:51)
[2024-02-18] MEDS ORDERED: MAGNESIUM HYDROXIDE 2,400 MG/30 ML CUP PO PRN (12:51)
[2024-02-18] MEDS ORDERED: DRY MOUTH SPRAY 44.3 SPRAY/44.3 ML SPRAY MUCOUS MEM PRN (12:51)
[2024-02-18] MEDS ORDERED: bisacodyL 10 MG SUPP RECTAL PRN (12:51)
[2024-02-18] MEDS ORDERED: DEXTROSE 50% SYRINGE 50 ML IVP PRN ×2 (12:58)
[2024-02-18] MEDS: ISOSORBIDE MONONITRATE ER 30 MG TAB.ER.24H PO SCH (13:19)
[2024-02-18] MEDS: hydrALAZINE HCL 50 MG TAB PO SCH ×2 (13:19→14:38)
[2024-02-18] MEDS: HYDROcodone/APAP 5-325MG 1 EACH TAB PO PRN (13:21)
[2024-02-18] MEDS: IPRATROPIUM-ALBUTEROL 3 ML NEB INHALATION PRN (14:29)
[2024-02-18 14:37] LABS: Glucose,Whole Blood 314 mg/dL (70-110)
[2024-02-18] MEDS: ONDANSETRON 4 MG TAB PO PRN (14:37)
--- NOTE | 2024-02-18 15:19 | P.HPIM ---
History of Present Illness H&P Date: 02/18/24 This is a 34-year-old female who presented to the emergency department via EMS from [facility] where she has no PCP in the outpatient setting but has been followed by Dr. Morgan while in rehab with reports of uncontrolled hypertension and volume overload. Patient also with concerns of stroke with 3 days of ongoing headache and woke up again this morning from a sleep having weakness in her right arm and leg as well as some numbness on the side of her face. Patient reports she has been having difficulty with controlling her blood pressure and was recently started on clonidine patch although reports to having some itching and feels it is related to the patch. Patient with significant past medical history of CVA, insulin-dependent diabetes, GERD, hypertension, renal disease, seizure disorder, thyroid disorder, gastroparesis, maintained on hemodialysis Wednesday although also receiving another day of dialysis weekly and patient is currently awaiting a kidney and pancreas transplant. Patient also with significant history of anxiety and depression is a former smoker and used to use large amounts of marijuana and methamphetamine. Patient currently maintained on Cleviprex drip and awaiting an ICU bed. Will discontinue Cleviprex and add hydralazine orally as well as IV as needed. Labs reviewed revealed a mildly elevated white count of 15.3, hemoglobin is 10, platelets are 445, sodium is 134 with a potassium of 4.8, BUN is 25 and creatinine is 3.97. Blood sugars were in the 2-3 100s, troponin was negative. Chest x-ray revealed mild bilateral central edema that remains present for fluid overload. CT brain showing no acute intracranial hemorrhage mass effect or midline shift noted. CT angio shows no significant vascular abnormality noted with small bilateral pleural effusions partially imaged. EKG with sinus rhythm REVIEW OF SYSTEMS: CONSTITUTIONAL: No fever, no malaise, no fatigue. HEENT: Reports of right eye blindness with visual problems, denies hearing problems. Denied any sore throat. CARDIOVASCULAR: No chest pain, orthopnea, PND, no palpitations, no syncope. PULMONARY: Reports shortness of breath, no cough, no hemoptysis. GASTROINTESTINAL: No diarrhea, no nausea, no vomiting, no abdominal pain. NEUROLOGICAL: Reports of headaches, reports of weakness, reports some facial numbness. HEMATOLOGICAL: Denies any bleeding or petechiae. GENITOURINARY: Denies any burning micturition, frequency, or urgency. MUSCULOSKELETAL/RHEUMATOLOGICAL: Denies any joint pain, swelling, or any muscle pain. ENDOCRINE: Denies any polyuria or polydipsia. The rest of the 14-point review of systems is negative. PHYSICAL EXAMINATION: GENERAL: The patient is alert and oriented x3, not in any acute distress. Well developed, well nourished. Elderly appearing, ill-appearing HEENT: Pupils are round and equally reacting to light. EOMI. No scleral icterus. No conjunctival pallor. Normocephalic, atraumatic. No pharyngeal erythema. No thyromegaly. CARDIOVASCULAR: S1 and S2 muffled PULMONARY: Diminished breath sounds bilaterally with some basilar crackles noted. ABDOMEN: Soft, nontender, nondistended, normoactive bowel sounds. No palpable organomegaly. MUSCULOSKELETAL: No joint swelling or deformity. EXTREMITIES: No cyanosis, clubbing, or pedal edema. NEUROLOGICAL: Gross neurological examination did not reveal any focal deficits. Diffusely weak SKIN: No rashes. Assessment: Right side weakness with recurrent visual loss, concerns for CVA versus TIA History of CVA End-stage renal disease on hemodialysis Wednesday//Wednesday and patient reports has been receiving four times weekly History of diabetic gastroparesis with nausea and vomiting, currently controlled Diabetes melitis, type II, insulin-dependent, uncontrolled with hyperglycemia Hypertension, uncontrolled with elevated blood pressures on admission Volume overload with bilateral pleural effusions Acute on chronic hypoxic respiratory failure secondary to continued volume overload, patient reports has been wearing oxygen at [facility] continuously since last admission Generalized weakness with gait dysfunction Anemia of chronic disease History of optic neuritis status post CVA with right eye blindness, patient reported it recently resolved although when the symptoms started she is experiencing right eye blindness again GERD History of seizure disorder History of thyroid disorder GI prophylaxis DVT prophylaxis Full code Plan: Patient with concerns of right-sided weakness and visual disturbances with numbness with concerns of possible CVA versus TIA, neurology is consulted and pending, CTA was negative as well as CT of the brain Patient with uncontrolled blood pressure started on Cleviprex in the ER although will discontinue and resume home medications along with hydralazine and as needed Continue Accu-Cheks before meals and at bedtime and will treat accordingly and titrate insulins as needed Nephrology following and will be having dialysis today as well as tomorrow and will follow-up on repeat labs Gait dysfunction with generalized weakness was at [facility] will reconsult PT/OT therapy Due to multiple complex medical issues, prognosis is guarded The impression and plan of care has been dictated by Margie Urbina, Nurse Practitioner as directed. Dr. Connie MD I have performed a history and examination and MDM of this patient, discussed the same with the dictator, and agree with the dictator's assessment and plan as written ,documented as a scribe. Based on total visit time, I have performed more than 50% of the visit. Past Medical History Past Medical History: Diabetes Mellitus, GERD/Reflux, Hypertension, Renal Disease, Seizure Disorder, Thyroid Disorder Additional Past Medical History / Comment(s): Neuropathy, last seizure 2020, gastroparesis, headaches with dialysis, states "fast heart rate" since giving ., receives Hemodialysis Wednesday- and Saturdays at [facility] right chest hemodialysis catheter., severe HTN. patient awaiting Kidney and Pancrease Transplant. , states sometimes she has had stroke -like symptoms but no stroke., hx of c-diff 2013. History of Any Multi-Drug Resistant Organisms: None Reported Date of last positivie culture/infection: 2013 MDRO Source:: stool Past Surgical History: Adenoidectomy, Section, Cholecystectomy, Orthopedic Surgery, Tonsillectomy Additional Past Surgical History / Comment(s): 2 KNEE SCOPES, EAR TUBES, additional left knee surgery related to fracture, new port a cath jul 29, eye surgeries for diabetic retinopathy. Past Anesthesia/Blood Transfusion Reactions: Previous Problems w/ Anesthesia Additional Past Anesthesia/Blood Transfusion Reaction / Comment(s): confusion Past Psychological History: Anxiety, Depression Smoking Status: Former smoker Past Alcohol Use History: None Reported Past Drug Use History: Marijuana, Methamphetamine - Past Family History Father Family Medical History: Unable to Obtain Mother Family Medical History: No Reported History Grandfather Family Medical History: Coronary Artery Disease (CAD) Additional Family Medical History / Comment(s): Diabetes mellitus type 2 Medications and Allergies Home Medications Medication Instructions Recorded Confirmed Type Levothyroxine Sodium [Synthroid] 175 mcg PO DAILY@0600 10/22/23 02/18/24 History Sertraline [Zoloft] 200 mg PO DAILY@0800 10/22/23 02/18/24 History Atorvastatin [Lipitor] 40 mg PO HS@2100 12/27/23 02/18/24 History Divalproex ER [Depakote ER] 500 mg PO BID@0800,1700 12/27/23 02/18/24 History Ondansetron [Zofran] 4 mg PO Q8HR PRN 12/27/23 02/18/24 History Pantoprazole [Protonix] 40 mg PO DAILY@0600 12/27/23 02/18/24 History [place] Caps 1 cap PO HS@2100 12/27/23 02/18/24 History carvediloL [Coreg] 25 mg PO BID@0600,1700 12/27/23 02/18/24 History hydrALAZINE HCL [Apresoline] 100 mg PO TID@0600,1400,2200 12/27/23 02/18/24 History methocarbamoL [Robaxin-750] 750 mg PO QID@06,12,17,21 12/27/23 02/18/24 History Aspirin 81 mg PO DAILY@0800 02/05/24 02/18/24 History Docusate [Colace] 100 mg PO DAILY@0800 02/05/24 02/18/24 History Lidocaine 4% Patch 1 patch TOPICAL DAILY@0800 02/05/24 02/18/24 History Magnesium Hydroxide [Milk of 7,200 mg PO DAILY PRN 02/05/24 02/18/24 History Magnesia Concentrate] Menthol [Biofreeze] 1 applic TOPICAL BID PRN 02/05/24 02/18/24 History NIFEdipine XL [Procardia XL] 60 mg PO BID@0800,1700 02/05/24 02/18/24 History Sevelamer [Renvela] 1,600 mg PO AC-TID@07,11,1630 02/05/24 02/18/24 History Torsemide [Demadex] 40 mg PO DAILY@0800 02/05/24 02/18/24 History bisacodyL [Dulcolax] 10 mg RECTAL DAILY PRN 02/05/24 02/18/24 History ALPRAZolam [Xanax] 0.25 mg PO QID PRN #60 tab 02/14/24 02/18/24 Rx HYDROcodone/APAP 5-325MG [[place] 1 tab PO Q8H PRN #20 tab 02/14/24 02/18/24 Rx 5-325] INSULIN ASPART (NovoLOG) [NovoLOG 10 unit SQ AC-SUPPER each 02/14/24 02/18/24 Rx (formulary)] Ipratropium-Albuterol Nebulize 3 ml INHALATION RT-TID PRN each 02/14/24 02/18/24 Rx [Duoneb 0.5 mg-3 mg/3 ml Soln] Isosorbide Mononitrate ER [Imdur] 30 mg PO DAILY tab 02/14/24 02/18/24 Rx Metoclopramide [Reglan] 5 mg PO AC-TID tab 02/14/24 02/18/24 Rx polyethylene glycoL 3350 [Miralax] 17 gm PO AC-LUNCH #527 gm 02/14/24 02/18/24 Rx Acetaminophen [Tylenol] 650 mg PO Q4H PRN 02/18/24 02/18/24 History Biotene Dry Mouth/Throat 10 ml PO BID PRN 02/18/24 02/18/24 History INSULIN ASPART (NovoLOG) [NovoLOG 7 unit SQ AC-BID@0700,1200 02/18/24 02/18/24 History (formulary)] INSULIN ASPART (NovoLOG) [NovoLOG See Protocol SQ ACHS 02/18/24 02/18/24 History (formulary)] Insulin Detemir (Levemir) [Levemir] 12 unit SQ HS 02/18/24 02/18/24 History Insulin Detemir (Levemir) [Levemir] 20 unit SQ DAILY 02/18/24 02/18/24 History Na Phos,M-B/Na Phos,Di-Ba [Fleet 133 ml RECTAL DAILY PRN 02/18/24 02/18/24 History Adult] cloNIDine 0.3 MG/24HR PATCH 1 patch TRANSDERM MO 02/18/24 02/18/24 History [Catapres-TTS] Allergies Allergy/AdvReac Type Severity Reaction Status Date / Time hydromorphone HCl Allergy Anaphylaxis Verified 02/18/24 09:23 [From Dilaudid] propoxyphene Allergy Rash/Hives Verified 02/18/24 09:23 [From Darvocet-N] tramadol Allergy Anaphylaxis Verified 02/18/24 09:23 ibuprofen [From Motrin] AdvReac unable to Verified 02/18/24 09:23 take due to kidney disease venom-honey bee AdvReac passes out Verified 02/18/24 09:23 [bee venom (honey bee)] Physical Exam Vitals: Vital Signs Temp Pulse Resp BP Pulse Ox 02/18/24 09:21 92 18 127/78 95 02/18/24 08:58 93 18 128/79 97 02/18/24 08:51 90 18 130/77 96 02/18/24 08:21 89 18 120/79 97 02/18/24 07:51 90 18 96 02/18/24 07:45 98.0 F 92 18 122/65 97 02/18/24 06:55 104 H 18 144/82 97 02/18/24 06:48 102 H 18 151/84 95 02/18/24 06:19 95 18 140/86 95 02/18/24 06:14 96 18 140/91 95 02/18/24 06:07 97 16 139/89 93 L 02/18/24 05:53 96 148/86 02/18/24 05:50 98 150/83 02/18/24 05:47 97 18 151/88 93 L 02/18/24 05:39 93 20 168/93 91 L 02/18/24 05:37 92 20 199/113 91 L 02/18/24 05:33 90 20 199/110 91 L 02/18/24 05:28 91 22 194/110 92 L 02/18/24 05:03 98.9 F 101 H 16 213/117 98 Intake and Output 02/17/24 02/18/24 02/18/24 22:59 06:59 14:59 Intake Total 1.900 33.133 Balance 1.900 33.133 Intake: Intake, IV Titration 1.900 33.133 Amount Clevidipine Butyrate 25 1.900 33.133 mg In Empty Bag 1 bag @ 1 MG/HR 2 mls/hr IV .Q24H [facility] Rx#:[id number] Other: Weight 68.946 kg Results CBC & Chem 7: 02/18/24 05:08 02/18/24 05:08 Labs: Abnormal Lab Results - Last 24 Hours (Table) 02/18/24 02/18/24 02/18/24 Range/Units 05:07 05:08 05:08 WBC 15.3 H (3.8-10.6) k/uL RBC 3.17 L (3.80-5.40) m/uL Hgb 10.0 L D (11.4-16.0) gm/dL Hct 30.5 L (34.0-46.0) % RDW 16.5 H (11.5-15.5) % Neutrophils # 9.9 H (1.3-7.7) k/uL Eosinophils # 2.4 H (0-0.7) k/uL Sodium 134 L (137-145) mmol/L Chloride 93 L (98-107) mmol/L Carbon Dioxide 34 H (22-30) mmol/L BUN 25 H (7-17) mg/dL Creatinine 3.97 H (0.52-1.04) mg/dL Glucose 250 H (74-99) mg/dL POC Glucose (mg/dL) 255 H (70-110) mg/dL ALT 40 H (4-34) U/L Alkaline Phosphatase 148 H (38-126) U/L Total Protein 6.2 L (6.3-8.2) g/dL 02/18/24 Range/Units 08:58 WBC (3.8-10.6) k/uL RBC (3.80-5.40) m/uL Hgb (11.4-16.0) gm/dL Hct (34.0-46.0) % RDW (11.5-15.5) % Neutrophils # (1.3-7.7) k/uL Eosinophils # (0-0.7) k/uL Sodium (137-145) mmol/L Chloride (98-107) mmol/L Carbon Dioxide (22-30) mmol/L BUN (7-17) mg/dL Creatinine (0.52-1.04) mg/dL Glucose (74-99) mg/dL POC Glucose (mg/dL) 287 H (70-110) mg/dL ALT (4-34) U/L Alkaline Phosphatase (38-126) U/L Total Protein (6.3-8.2) g/dL Thrombosis Risk Factor Assmnt - DVT/VTE Prophylaxis DVT/VTE Prophylaxis: Pharmacologic Prophylaxis ordered Assessment and Plan Time with Patient: Greater than 30
[2024-02-18] MEDS: INSULIN DETEMIR (LEVEMIR) 100 UNIT/ML SYR SQ SCH ×2 (16:45→21:51)
[2024-02-18 16:46] LABS: Glucose,Whole Blood 371 mg/dL (70-110)
[2024-02-18] MEDS: INSULIN ASPART (NovoLOG) 100 UNIT/ML VIAL SQ SCH (16:58)
[2024-02-18] MEDS: DIVALPROEX ER 500 MG TAB.ER.24H PO SCH (16:58)
[2024-02-18] MEDS: carvediloL 12.5 MG TAB PO SCH ×2 (16:58→17:55)
[2024-02-18] MEDS: SEVELAMER 800 MG TAB PO SCH (16:59)
[2024-02-18] MEDS: CLOPIDOGREL 75 MG TAB PO STA (16:59)
[2024-02-18] MEDS: METOCLOPRAMIDE 5 MG TAB PO SCH (16:59)
[2024-02-18] MEDS: methocarbamoL 750 MG TAB PO SCH (17:01)
[2024-02-18] MEDS: ACETAMINOPHEN IV (For NPO) 1,000 MG in EMPTY BAG 1 BAG IVPB PRN (18:56)
[2024-02-18 21:46] LABS: Glucose,Whole Blood 161 mg/dL (70-110)
[2024-02-18] MEDS: ATORVASTATIN 40 MG TAB PO SCH (21:51)
[2024-02-18] MEDS: BUTALB/APAP/CAFF 50-325-40MG TAB PO PRN (22:48)
[2024-02-18] MEDS: FOLIC ACID-VIT B COMPLEX-VIT C 1 CAP PO SCH (22:48)
[2024-02-18] MEDS: ALPRAZolam 0.25 MG TAB PO PRN (23:34)
[2024-02-19 01:59] LABS: Glucose,Whole Blood 35 mg/dL (70-110)
[2024-02-19 02:19] LABS: Glucose,Whole Blood 52 mg/dL (70-110)
[2024-02-19 02:32] LABS: Glucose,Whole Blood 80 mg/dL (70-110)
[2024-02-19] MEDS: PANTOPRAZOLE 40 MG TABLET PO SCH (05:40)
[2024-02-19] MEDS: LEVOTHYROXINE 75 MCG TAB PO SCH (05:40)
[2024-02-19] MEDS: LEVOTHYROXINE 100 MCG TAB PO SCH (05:40)
[2024-02-19 06:13] LABS: Glucose,Whole Blood 136 mg/dL (70-110)
[2024-02-19] MEDS ORDERED: INSULIN ASPART (NovoLOG) 100 UNIT/ML VIAL SQ SCH (07:00)
[2024-02-19] MEDS: LIDOCAINE 4% PATCH TOPICAL SCH (08:55)
[2024-02-19] MEDS: DOCUSATE 100 MG CAP PO SCH (08:56)
[2024-02-19] MEDS: SERTRALINE 100 MG TAB PO SCH (08:57)
[2024-02-19] MEDS: TORSEMIDE 20 MG TAB PO SCH (08:57)
[2024-02-19] MEDS: ASPIRIN 81 MG PO SCH (08:57)
[2024-02-19] MEDS: CLOPIDOGREL 75 MG TAB PO SCH (08:57)
--- NOTE | 2024-02-19 09:06 | P.CNNES ---
History of Present Illness Consult date: 02/18/24 Requesting physician: Siva Rosales Reason for Consult: Neuro symptoms History of Present Illness: Patient is a 34-year-old right-handed female with history of type 1 diabetes, hypertension, ESRD on hemodialysis, diabetic retinopathy, came to the hospital by ambulance inspector bullet slugs today at 5:01 AM for strokelike symptoms. Patient states that for last 3 days she has been suffering from migraines. She notices that her blood pressure has been running high, around 208/101. Today inspector bullet slugs at around 3 AM, she was sitting in the bed, when she developed numbness and tingling in the right hand that extended to the right elbow, also involving the right foot. There was no involvement of the face or the other part of the leg (except the foot). As per EMS flow sheet, when they arrived, patient was sitting in her bed. Nursing the facility reported that patient has been hypertensive for last 3 days and new symptoms of a headache and blurred vision started around 2 AM. Nursing reported that patient is usually hypertensive with a systolic being between 140- 160. Patient has history of a stroke in October 2023 with lasting deficits of poor vision in the right eye, renal failure, seizures, hypertension and diabetes. Patient had 10 pounds of fluid removed during her dialysis. As per EMS, there was no slurred speech or facial droop, but patient does have arm drift and right-sided weakness noted. Patient's blood glucose was 286. Patient's vitals at the scene was blood pressure 222/119, pulse rate 98, respirations 16, saturation 97%. Repeat blood pressure was 216/111. Vital signs on arrival blood pressure 213/117, which came down to 194/110. Patient is afebrile, pulse 100. Blood tests shows WBC 15.3, hemoglobin 10.0, platelets are normal. PT/PTT normal, sodium is 134 potassium 4.8, BUN 25, creatinine 3.97. AST 24, ALT 40. Troponins negative. Chest x-ray revealed mild bilateral central edema remains present. Correlate for fluid overload status. CT head revealed no acute intracranial process. No midline shift. I personally reviewed CT head, given the findings. EKG shows sinus rhythm. In the ER, code stroke was activated. Patient was evaluated by the ED staff, and her NIH stroke scale documented as 4. Her blood pressure was very high, and she was started on Cleviprex. ED staff discuss case with neuro intervention, and recommended blood pressure management. After patient returned from radiology, she informed that symptoms have been present off and on for 2-3 days, therefore she was considered not a candidate for TPA. Also because of unknown onset of symptoms, and uncontrolled blood pressure. Patient states that in the ER her symptoms have got worse, with right facial droop, the numbness has progressed from foot up to the knees and also involving the right side of the face and the numbness in the arm has progressed up to the mid upper arm. She feels right facial droopiness. No slurred speech even at this time. Patient has significant vision loss right eye on 12/27/2023 admission. Patient states that her vision improved and she was able to see sh adows, but now this morning, the vision has again got worse in the right eye. It is completely black. She has some diabetic hemorrhage and spots in the vision in the left eye. Patient states that she has been getting migraines for last 2 days although she does not really get migraines. She states her diabetes is well controlled, the last A1c 6.7 on 01/17/2024. She has been on hemodialysis since April 2023. Patient has been seen by neurology team multiple times in the past for acute visual disturbance. At that time it was suspected with trace hemorrhage. Patient denies any tobacco or alcohol use. Some other workup during previous hospital visit consisted of: Vitamin B12: 882, folate 12.50 TSH: 7.230, free T4: 1.17. Carotid duplex was reported as less than 50% stenosis of bilateral carotid bifurcation. 2D echo: Left ventricular EF 55-60%. Small pericardial effusion No tamponade physiology HAYDER 12/31/2023: 1. The aortic valve is tricuspid with normal function. 2. The mitral valve appears be normal with mild mitral regurgitation. 3. Tricuspid valve is normal with no vegetation. 4. The interatrial septum is intact. No evidence of PFO. 5. Left atrial appendage is free of clot. 6. Left ventricular ejection fraction 55% 7. No vegetation noted 8. Dialysis catheter noted in right atrium with no vegetation noted on catheter. Review of Systems Constitutional: Reports fever, Reports sweats, Denies chills Eyes: right loss of vision, left tunnel vision/blind spots, denies diplopia Ears: deny: decreased hearing, ear discharge Ears, nose, mouth and throat: Reports headache, Denies sore throat, Denies vertigo Cardiovascular: Reports chest pain, Reports lightheadedness, Reports shortness of breath Respiratory: Denies cough, Denies excessive sputum Gastrointestinal: Reports diarrhea, Reports nausea, Reports vomiting, Denies abdominal pain Musculoskeletal: Denies low back pain, Denies neck pain Integumentary: Denies pruritus, Denies rash Neurological: Reports as per HPI Psychiatric: Reports anxiety, Reports depression Endocrine: Reports fatigue, Denies weight change Hematologic/Lymphatic: Denies easy bleeding, Denies easy bruising Past Medical History Past Medical History: Diabetes Mellitus, GERD/Reflux, Hypertension, Renal Disease, Seizure Disorder, Thyroid Disorder Additional Past Medical History / Comment(s): Neuropathy, last seizure 2020, gastroparesis, headaches with dialysis, states "fast heart rate" since giving ., receives Hemodialysis Wednesday- and Saturdays at [facility]., right chest hemodialysis catheter., severe HTN. patient awaiting Kidney and Pancrease Transplant. , states sometimes she has had stroke -like symptoms but no stroke., hx of c-diff 2013. History of Any Multi-Drug Resistant Organisms: None Reported Date of last positivie culture/infection: 2013 MDRO Source:: stool Past Surgical History: Adenoidectomy, Section, Cholecystectomy, Orthopedic Surgery, Tonsillectomy Additional Past Surgical History / Comment(s): 2 KNEE SCOPES, EAR TUBES, additional left knee surgery related to fracture, new port a cath jul 29, eye surgeries for diabetic retinopathy. Past Anesthesia/Blood Transfusion Reactions: Previous Problems w/ Anesthesia Additional Past Anesthesia/Blood Transfusion Reaction / Comment(s): confusion Past Psychological History: Anxiety, Depression Smoking Status: Former smoker Past Alcohol Use History: None Reported Past Drug Use History: Marijuana, Methamphetamine - Past Family History Father Family Medical History: Unable to Obtain Mother Family Medical History: No Reported History Grandfather Family Medical History: Coronary Artery Disease (CAD) Additional Family Medical History / Comment(s): Diabetes mellitus type 2 Medications and Allergies Home Medications Medication Instructions Recorded Confirmed Type Levothyroxine Sodium [Synthroid] 175 mcg PO DAILY@0600 10/22/23 02/18/24 History Sertraline [Zoloft] 200 mg PO DAILY@0800 10/22/23 02/18/24 History Atorvastatin [Lipitor] 40 mg PO HS@209912/27/23 02/18/24 History Divalproex ER [Depakote ER] 500 mg PO BID@0800,1700 12/27/23 02/18/24 History Ondansetron [Zofran] 4 mg PO Q8HR PRN 12/27/23 02/18/24 History Pantoprazole [Protonix] 40 mg PO DAILY@0600 12/27/23 02/18/24 History [place] Caps 1 cap PO HS@209912/27/23 02/18/24 History carvediloL [Coreg] 25 mg PO BID@0600,1700 12/27/23 02/18/24 History hydrALAZINE HCL [Apresoline] 100 mg PO TID@0600,1400,2200 12/27/23 02/18/24 History methocarbamoL [Robaxin-750] 750 mg PO QID@06,12,17,21 12/27/23 02/18/24 History Aspirin 81 mg PO DAILY@0800 02/05/24 02/18/24 History Docusate [Colace] 100 mg PO DAILY@0800 02/05/24 02/18/24 History Lidocaine 4% Patch 1 patch TOPICAL DAILY@0800 02/05/24 02/18/24 History Magnesium Hydroxide [Milk of 7,200 mg PO DAILY PRN 02/05/24 02/18/24 History Magnesia Concentrate] Menthol [Biofreeze] 1 applic TOPICAL BID PRN 02/05/24 02/18/24 History NIFEdipine XL [Procardia XL] 60 mg PO BID@0800,1700 02/05/24 02/18/24 History Sevelamer [Renvela] 1,600 mg PO AC-TID@07,11,1630 02/05/24 02/18/24 History Torsemide [Demadex] 40 mg PO DAILY@0800 02/05/24 02/18/24 History bisacodyL [Dulcolax] 10 mg RECTAL DAILY PRN 02/05/24 02/18/24 History ALPRAZolam [Xanax] 0.25 mg PO QID PRN #60 tab 02/14/24 02/18/24 Rx HYDROcodone/APAP 5-325MG [[place] 1 tab PO Q8H PRN #20 tab 02/14/24 02/18/24 Rx 5-325] INSULIN ASPART (NovoLOG) [NovoLOG 10 unit SQ AC-SUPPER each 02/14/24 02/18/24 Rx (formulary)] Ipratropium-Albuterol Nebulize 3 ml INHALATION RT-TID PRN each 02/14/24 02/18/24 Rx [Duoneb 0.5 mg-3 mg/3 ml Soln] Isosorbide Mononitrate ER [Imdur] 30 mg PO DAILY tab 02/14/24 02/18/24 Rx Metoclopramide [Reglan] 5 mg PO AC-TID tab 02/14/24 02/18/24 Rx polyethylene glycoL 3350 [Miralax] 17 gm PO AC-LUNCH #527 gm 02/14/24 02/18/24 R x Acetaminophen [Tylenol] 650 mg PO Q4H PRN 02/18/24 02/18/24 History Biotene Dry Mouth/Throat 10 ml PO BID PRN 02/18/24 02/18/24 History INSULIN ASPART (NovoLOG) [NovoLOG 7 unit SQ AC-BID@0700,1200 02/18/24 02/18/24 History (formulary)] INSULIN ASPART (NovoLOG) [NovoLOG See Protocol SQ ACHS 02/18/24 02/18/24 History (formulary)] Insulin Detemir (Levemir) [Levemir] 12 unit SQ HS 02/18/24 02/18/24 History Insulin Detemir (Levemir) [Levemir] 20 unit SQ DAILY 02/18/24 02/18/24 History Na Phos,M-B/Na Phos,Di-Ba [Fleet 133 ml RECTAL DAILY PRN 02/18/24 02/18/24 History Adult] cloNIDine 0.3 MG/24HR PATCH 1 patch TRANSDERM MO 02/18/24 02/18/24 History [Catapres-TTS] Allergies Allergy/AdvReac Type Severity Reaction Status Date / Time hydromorphone HCl Allergy Anaphylaxis Verified 02/18/24 09:23 [From Dilaudid] propoxyphene Allergy Rash/Hives Verified 02/18/24 09:23 [From Darvocet-N] tramadol Allergy Anaphylaxis Verified 02/18/24 09:23 ibuprofen [From Motrin] AdvReac unable to Verified 02/18/24 09:23 take due to kidney disease venom-honey bee AdvReac passes out Verified 02/18/24 09:23 [bee venom (honey bee)] Physical Examination - Vital Signs Vital Signs: Vital Signs Temp Pulse Resp BP Pulse Ox 02/18/24 14:51 82 18 172/98 98 02/18/24 14:45 84 18 179/96 97 02/18/24 14:40 90 02/18/24 14:33 87 02/18/24 13:56 90 18 187/100 98 02/18/24 13:51 90 18 187/100 98 02/18/24 13:07 81 18 181/100 98 02/18/24 12:51 81 18 98 02/18/24 12:43 86 18 183/105 98 02/18/24 12:21 87 18 170/98 98 02/18/24 11:51 88 18 169/87 98 02/18/24 11:46 86 18 165/98 98 02/18/24 11:21 87 18 150/78 98 02/18/24 10:51 89 18 133/82 98 02/18/24 10:21 85 18 125/72 98 02/18/24 10:00 98 18 122/72 95 02/18/24 09:58 92 18 127/72 94 L 02/18/24 09:21 92 18 127/78 95 02/18/24 08:58 93 18 128/79 97 02/18/24 08:51 90 18 130/77 96 02/18/24 08:21 89 18 120/79 97 02/18/24 07:51 90 18 96 02/18/24 07:45 98.0 F 92 18 122/65 97 02/18/24 06:55 104 H 18 144/82 97 02/18/24 06:48 102 H 18 151/84 95 02/18/24 06:19 95 18 140/86 95 02/18/24 06:14 96 18 140/91 95 02/18/24 06:07 97 16 139/89 93 L 02/18/24 05:53 96 148/86 02/18/24 05:50 98 150/83 02/18/24 05:47 97 18 151/88 93 L 02/18/24 05:39 93 20 168/93 91 L 02/18/24 05:37 92 20 199/113 91 L 02/18/24 05:33 90 20 199/110 91 L 02/18/24 05:28 91 22 194/110 92 L 02/18/24 05:03 98.9 F 101 H 16 213/117 98 Intake and Output 02/18/24 02/18/24 02/18/24 06:59 14:59 22:59 Intake Total 1.900 83.133 Balance 1.900 83.133 Intake: Intake, IV Titration 1.900 83.133 Amount Clevidipine Butyrate 25 1.900 83.133 mg In Empty Bag 1 bag @ 1 MG/HR 2 mls/hr IV .Q24H [facility] Rx#:[id number] Other: Weight 68.946 kg Patient is a young female, very pleasant, in no acute distress. She has a slightly flat affect. Patient is alert awake oriented to time place and person. Speech and language functions are normal. Patient can name and repeat very well. No aphasia or dysarthria. Attention, concentration and fund of knowledge is adequate. On cranial nerve examination, both pupils are round, the left pupil is better reactive than the right. Visual armendariz are difficult to assess because of significant diabetic retinopathy. There is questionable visual field defect right lower quadrant and left upper quadrant. Quite inconsistent. Her visual acuity is severely decreased in the right, but much better on the left. Extraocular muscles are intact with no nystagmus. Patient has right facial weakness, central type. Her tongue protrudes to the midline. Palatal elevation and sensation normal, hearing and shoulder shrug normal, facial sensation decreased on right side of the face. On muscle strength testing, there is a right pronator drift about 45. Muscle strength is (right/left) deltoid 4/5, biceps 4/5, triceps 4+/5, supervisor grips 4/5, hip flexion 4+/5, ankle dorsiflexion 4/5. Patient does have right leg drift but does not hit the bed. Deep tendon reflexes are symmetric 1+ at the biceps, 1 brachioradialis, 1+ at the knees, 0 ankles and plantars downgoing bilaterally. Sensory to touch is decreased in the right arm and right leg. Cerebellar function showed mild ataxia for [id number] testing only on the right, not left. Patient has ataxia of the left leg for [id number] testing, but not the left lower extremity. Tone and bulk of muscles normal. Gait deferred.. On general examination, there is no carotid bruit or murmur, S1-S2 audible. Chest is clear on consultation. Abdomen is soft nontender. No organomegaly, bowel sounds present. Peripheral pulses are present. No peripheral edema. Results - Laboratory Findings CBC and BMP: 02/18/24 05:08 02/18/24 05:08 Abnormal Lab Findings: Abnormal Labs 02/18/24 02/18/24 02/18/24 05:07 05:08 05:08 WBC 15.3 H RBC 3.17 L Hgb 10.0 L D Hct 30.5 L RDW 16.5 H Neutrophils # 9.9 H Eosinophils # 2.4 H Sodium 134 L Chloride 93 L Carbon Dioxide 34 H BUN 25 H Creatinine 3.97 H Glucose 250 H POC Glucose (mg/dL) 255 H ALT 40 H Alkaline Phosphatase 148 H Total Protein 6.2 L 02/18/24 02/18/24 08:58 14:36 WBC RBC Hgb Hct RDW Neutrophils # Eosinophils # Sodium Chloride Carbon Dioxide BUN Creatinine Glucose POC Glucose (mg/dL) 287 H 314 H ALT Alkaline Phosphatase Total Protein Assessment and Plan Assessment: Acute onset of numbness and weakness of right side of the body including face arm and leg. Possible CVA. Her NIH stroke scale was 4 on arrival, but now it is 7. Patient was considered not a candidate for thrombolysis because of unknown last known well, and uncontrolled blood pressure. No LVO noted on CTA. History of chronic visual disturbance due to diabetic retinopathy, vitreous hemorrhage. History of small right occipital and left centrum semiovalve on previous MRI (outside) in November 2023. ESRD on dialysis since 04/21/2023 Chronic Diabetes Mellitus, with his most recent A1c 6.7 on 01/17/2024. ?History of seizures on Depakote Hypertension Hypothyroidism Plan: * MRI of the brain evaluate for acute stroke * Patient had a HAYDER performed 12/31/2023, which was normal. No need to repeat. * Patient underwent event monitoring from 01/03/2024 through 01/25/2024. The rhythm strip revealed sinus mechanism. No atrial fibrillation noted. No ventricular ectopy. * CTA of head and neck revealed no significant vascular abnormality. At least small bilateral pleural effusions are partially imaged. We will defer to IM regarding pleural effusion. * Hemoglobin A1c 6.7 on 01/17/2024, well controlled * Check lipid panel * Patient was on aspirin 81 mg daily. We will start Plavix. As patient is noticing worsening right-sided symptoms, we'll give loading dose of Plavix 300 mg and then maintain on 75 mg daily. * DVT prophylaxis: Start heparin 5000 unit every 12 hour. * PT OT, speech therapy. * Telemetry monitoring * Neurology will follow. Thank you for the consult. Time with Patient: Greater than 30
[2024-02-19 11:26] LABS: Anisocytosis Slight; Basophils # (A) 0.1 k/uL (0-0.2); Basophils % (A) 1 %; Eosinophils # (A) 2.3 k/uL (0-0.7); Eosinophils % (A) 17 %; HCT 26.6 % (34.0-46.0); Lymphocytes # (A) 1.9 k/uL (1.0-4.8); Lymphocytes % (A) 13 %; MCH 32.8 pg (25.0-35.0); MCHC 33.9 g/dL (31.0-37.0); MCV 96.6 fL (80.0-100.0); Macrocytosis Slight; Mean Platelet Volume 8.1; Monocytes # (A) 0.8 k/uL (0-1.0); Monocytes % (A) 6 %; Neutrophils # (A) 8.7 k/uL (1.3-7.7); Neutrophils % (A) 63 %; Platelet Count 351 k/uL (150-450); RBC 2.75 m/uL (3.80-5.40); RDW 16.8 % (11.5-15.5); WBC 13.9 k/uL (3.8-10.6)
[2024-02-19 11:36] LABS: ALT 32 U/L (4-34); AST 20 U/L (14-36); African American GFR (CKD) 16 (>60 ml/min/1.73 sqM); Albumin 3.1 g/dL (3.5-5.0); Alkaline Phosphatase 124 U/L (38-126); Anion Gap 9 mmol/L; Blood Urea Nitrogen 31 mg/dL (7-17); Calcium 8.6 mg/dL (8.4-10.2); Carbon Dioxide 28 mmol/L (22-30); Chloride 93 mmol/L (98-107); Glucose 248 mg/dL (74-99); Non-African American GFR(CKD) 14 (>60 ml/min/1.73 sqM); Sodium 130 mmol/L (137-145); Total Bilirubin 0.5 mg/dL (0.2-1.3); Total Protein 5.3 g/dL (6.3-8.2)
[2024-02-19 11:37] LABS: Glucose,Whole Blood 263 mg/dL (70-110)
[2024-02-19] MEDS: polyethylene glycoL 3350 17 GM POWD.PACK PO SCH (11:50)
[2024-02-19] MEDS: HEPARIN SODIUM,PORCINE 5,000 UNIT/ML 1 ML VIAL SQ SCH (11:58)
--- NOTE | 2024-02-19 12:00 | P.PN ---
Subjective Progress Note Date: 02/19/24 Principal diagnosis: Hypertensive emergency. Pulmonary consult dated February 18, 2024. This is a 34-year-old female with a history of multiple medical problems, who was seen in the emergency department, trauma room #1. The patient was admitted with a diagnosis of hypertensive emergency. Her blood pressure was well over 200 systolic. The patient was started on Cleviprex, and is currently on Cleviprex at 7 mg an hour. She is getting oxygen at 3 L by nasal cannula. CT of the brain was negative for anything acute, and angiography CT, was also negative. The patient was brought in from [facility]. The patient was recently in the hospital, on February 04, for fluid overload, hypoxemic respiratory failure, end-stage renal disease, hyperkalemia, anemia of chronic di sease, diabetes, recent CVA with right-sided weakness, and optic neuritis. The patient is very lethargic today in the emergency department. White count 15.3, hemoglobin 10, hematocrit 30.5, platelet count 445,000. Sodium 134, potassium 4.8, chloride 93, CO2 34, BUN 25, and creatinine 3.97. Glucose is 287. ALT is 40. Troponin less than 0.012. Albumin 3.8. Chest x-ray shows fluid overload. Progress note dated February 19, 2024. This is a 34-year-old female with a history of end-stage renal disease, who was seen in the emergency department yesterday, with hypertensive emergency, and hypertensive encephalopathy. In the emergency department, the patient was on Cleviprex for blood pressure support. Currently, she is seen in room 365. She is feeling better. She is on 3 L of oxygen. She is not receiving any IV fluids. Obviously, because she is on the floor, she is no longer on Cleviprex. White count is 13.9, hemoglobin 9, hematocrit 26.6, platelet count 351,000. Sodium 130, potassium 5, chloride 73, CO2 28, BUN 31, and creatinine 3.98. Glucose is 263. Albumin is 3.1. Objective - Vital Signs Vital signs: Vital Signs Temp 97.6 F 02/19/24 08:52 Pulse 78 02/19/24 08:52 Resp 18 02/19/24 08:53 BP 177/106 02/19/24 08:52 Pulse Ox 98 02/19/24 08:52 FiO2 Intake & Output 02/18/24 02/19/24 02/19/24 18:59 06:59 18:59 Intake Total 483.133 780 240 Output Total 2400 300 Balance -1916.867 480 240 Weight 75.7 kg Intake: Intake, IV Titration 83.133 Amount Clevidipine Butyrate 25 83.133 mg In Empty Bag 1 bag @ 1 MG/HR 2 mls/hr IV .Q24H [facility] Rx#:[id number] Oral 780 240 Hemodialysis 400 Output: Urine 300 Hemodialysis 2400 Other: Voiding Method Bedside Commode Bedside Commode # Voids 1 1 # Bowel Movements 1 - Exam No acute distress, awake and alert, currently on 3 L of oxygen. HEENT examination is grossly unremarkable. Mucous membranes are moist. No oral lesions. Neck supple. Full range of motion. No adenopathy thyromegaly or neck vein distention. Cardiovascular examination reveals regular rhythm rate. S1-S2 normal. No S3 or S4. No discernible murmur noted. HR is 78 bpm. Lungs reveal diffuse crackles. Breath sounds are equal bilaterally. No rhonchi. No wheezes. Breath Sounds Are Improved. Breath sounds equal bilaterally. Saturations are 88 %. Abdomen soft bowel sounds are heard. No masses or tenderness. Extremities are intact. No cyanosis clubbing or edema. Skin is without rash or lesion. Neurologic examination reveals the patient to be more awake and alert. - Labs CBC & Chem 7: 02/19/24 10:27 02/19/24 10:27 Labs: Abnormal Lab Results - Last 24 Hours (Table) 02/18/24 02/18/24 02/18/24 Range/Units 05:08 14:36 16:45 WBC (3.8-10.6) k/uL RBC (3.80-5.40) m/uL Hgb (11.4-16.0) gm/dL Hct (34.0-46.0) % RDW (11.5-15.5) % Neutrophils # (1.3-7.7) k/uL Eosinophils # (0-0.7) k/uL Sodium (137-145) mmol/L Chloride (98-107) mmol/L BUN (7-17) mg/dL Creatinine (0.52-1.04) mg/dL Glucose (74-99) mg/dL POC Glucose (mg/dL) 314 H 371 H (70-110) mg/dL Hemoglobin A1c 6.5 H (<=6.0) % Total Protein (6.3-8.2) g/dL Albumin (3.5-5.0) g/dL 02/18/24 02/19/24 02/19/24 Range/Units 21:44 01:57 02:17 WBC (3.8-10.6) k/uL RBC (3.80-5.40) m/uL Hgb (11.4-16.0) gm/dL Hct (34.0-46.0) % RDW (11.5-15.5) % Neutrophils # (1.3-7.7) k/uL Eosinophils # (0-0.7) k/uL Sodium (137-145) mmol/L Chloride (98-107) mmol/L BUN (7-17) mg/dL Creatinine (0.52-1.04) mg/dL Glucose (74-99) mg/dL POC Glucose (mg/dL) 161 H 35 L 52 L (70-110) mg/dL Hemoglobin A1c (<=6.0) % Total Protein (6.3-8.2) g/dL Albumin (3.5-5.0) g/dL 02/19/24 02/19/24 02/19/24 Range/Units 06:12 10:27 10:27 WBC 13.9 H (3.8-10.6) k/uL RBC 2.75 L (3.80-5.40) m/uL Hgb 9.0 L (11.4-16.0) gm/dL Hct 26.6 L (34.0-46.0) % RDW 16.8 H (11.5-15.5) % Neutrophils # 8.7 H (1.3-7.7) k/uL Eosinophils # 2.3 H (0-0.7) k/uL Sodium 130 L (137-145) mmol/L Chloride 93 L (98-107) mmol/L BUN 31 H (7-17) mg/dL Creatinine 3.98 H (0.52-1.04) mg/dL Glucose 248 H (74-99) mg/dL POC Glucose (mg/dL) 136 H (70-110) mg/dL Hemoglobin A1c (<=6.0) % Total Protein 5.3 L (6.3-8.2) g/dL Albumin 3.1 L (3.5-5.0) g/dL 02/19/24 Range/Units 11:34 WBC (3.8-10.6) k/uL RBC (3.80-5.40) m/uL Hgb (11.4-16.0) gm/dL Hct (34.0-46.0) % RDW (11.5-15.5) % Neutrophils # (1.3-7.7) k/uL Eosinophils # (0-0.7) k/uL Sodium (137-145) mmol/L Chloride (98-107) mmol/L BUN (7-17) mg/dL Creatinine (0.52-1.04) mg/dL Glucose (74-99) mg/dL POC Glucose (mg/dL) 263 H (70-110) mg/dL Hemoglobin A1c (<=6.0) % Total Protein (6.3-8.2) g/dL Albumin (3.5-5.0) g/dL Assessment and Plan Assessment: Acute hypertensive urgency, with hypertensive encephalopathy, and mental status changes. Recent admission, in January 2024, for hypoxemic respiratory failure, and fluid overload. History of end-stage renal disease, currently on hemodialysis. Anemia of chronic disease. Diabetes mellitus. Recent CVA with right-sided weakness. History of optic neuritis. Plan: Plan dated February 18, 2024. Currently, the patient is on Cleviprex at 7 mg an hour. The patient is on nasal O2 at 3 L/min. CT scan of the brain was negative. Angiography CT was also negative. The patient's blood pressure is under better control. The patient has a history of multiple medical problems including end-stage renal disease, anemia of chronic disease, diabetes, optic neuritis, and previous CVA. The patient was hospitalized in January of this year, with an episode of hypoxemic respiratory failure, secondary to fluid overload. Labs, x-rays, medications are reviewed. We will continue to follow make recommendations along the way. Plan dated February 19, 2024. The patient was evaluated in the emergency department yesterday. She was on Cleviprex for blood pressure support. The patient is also on 3 L of oxygen. Chest x-ray showed fluid overload. The patient was initially evaluated for possible stroke. It was thought afterward, the patient likely had hypertensive encephalopathy. Labs, x-rays, and medications are reviewed. Overall, the patient appears to be doing much better. She is not receiving any IV fluids. She is getting 3 L of oxygen. We will continue to follow, make recommendations along the way. Time with Patient: Less than 30
[2024-02-19] MEDS ORDERED: METOCLOPRAMIDE 5 MG/ML 2 ML VIAL IM PRN (12:19)
[2024-02-19] MEDS: LORazepam 2 MG/ML INJ IV ONE (12:57)
--- NOTE | 2024-02-19 13:21 | P.PN ---
Subjective Progress Note Date: 02/19/24 Patient follow-up for hemodialysis. Her blood pressure is improved today but she still has a headache and requesting morphine for this. She is planning for an MRI this afternoon and then after is scheduled for dialysis. Patient is awake, comfortable, no acute distress Examination of the heart S1 and S2 Examination of the lungs bilateral breath sounds are heard Abdomen is soft nontender Examination lower extremity shows no significant edema No focal deficits noted. Moving all 4 extremities Objective - Vital Signs Vital signs: Vital Signs Temp 97.6 F 02/19/24 08:52 Pulse 78 02/19/24 08:52 Resp 18 02/19/24 08:53 BP 177/106 02/19/24 08:52 Pulse Ox 98 02/19/24 08:52 FiO2 Intake & Output 02/18/24 02/19/24 02/19/24 18:59 06:59 18:59 Intake Total 483.133 780 240 Output Total 2400 300 Balance -1916.867 480 240 Weight 75.7 kg Intake: Intake, IV Titration 83.133 Amount Clevidipine Butyrate 25 83.133 mg In Empty Bag 1 bag @ 1 MG/HR 2 mls/hr IV .Q24H [facility] Rx#:[id number] Oral 780 240 Hemodialysis 400 Output: Urine 300 Hemodialysis 2400 Other: Voiding Method Bedside Commode Bedside Commode # Voids 1 1 # Bowel Movements 1 - Labs CBC & Chem 7: 02/19/24 10:27 02/19/24 10:27 Labs: Abnormal Lab Results - Last 24 Hours (Table) 02/18/24 02/18/24 02/18/24 Range/Units 05:08 14:36 16:45 POC Glucose (mg/dL) 314 H 371 H (70-110) mg/dL Hemoglobin A1c 6.5 H (<=6.0) % 02/18/24 02/19/24 02/19/24 Range/Units 21:44 01:57 02:17 POC Glucose (mg/dL) 161 H 35 L 52 L (70-110) mg/dL Hemoglobin A1c (<=6.0) % 02/19/24 Range/Units 06:12 POC Glucose (mg/dL) 136 H (70-110) mg/dL Hemoglobin A1c (<=6.0) % Assessment and Plan Plan: 1. End-stage renal disease on hemodialysis on a Wednesday schedule 2. Volume overload significantly improved over the last 1 week. 3. Hypertension with hypertensive emergency on admission. S/p Cleviprex drip, now on oral medications. Pain control for headache. 4. Diabetic gastroparesis and nausea and vomiting, improved with Reglan. However Reglan has caused galactorrhea which seems to be improving per patient. 5. Right-sided weakness seems to have improved. CT of the brain was negative. CTA negative as well 6. uncontrolled diabetes Plan: Hemodialysis yesterday and repeat today. Weaned off Cleviprex drip, home medications resumed. Clonidine discontinued, BP improving. Continue Reglan MRI brain without contrast plan for today.
--- NOTE | 2024-02-19 13:57 | MR ---
EXAMINATION TYPE: MR brain wo con DATE OF EXAM: 02/19/2024 1:52 PM COMPARISON: NONE HISTORY: Numbness and tingling in RUE/RLE and face. Hx stroke. Multiplanar and multispin-echo imaging of the brain was performed . The ventricles, basal cisterns and sulci overlying the cerebral convexities are within normal limits. There is no evidence for midline shift or mass effect. Acute intracranial hemorrhage or extra-axial collection is not evident. The brain parenchyma reveals no abnormal increased signal. No acute edema is identified. The paranasal sinuses are well aerated. Chronic mastoiditis changes on the right. IMPRESSION: Chronic mastoiditis on the right. No acute intracranial process identified at this time.
--- NOTE | 2024-02-19 14:24 | P.PN ---
Subjective Progress Note Date: 02/19/24 This is a 34-year-old female who presented to the emergency department via EMS from [facility] where she has no PCP in the outpatient setting but has been followed by Dr. Morgan while in rehab with reports of uncontrolled hypertension and volume overload. Patient also with concerns of stroke with 3 days of on going headache and woke up again this morning from a sleep having weakness in her right arm and leg as well as some numbness on the side of her face. Patient reports she has been having difficulty with controlling her blood pressure and was recently started on clonidine patch although reports to having some itching and feels it is related to the patch. Patient with significant past medical history of CVA, insulin-dependent diabetes, GERD, hypertension, renal disease, seizure disorder, thyroid disorder, gastroparesis, maintained on hemodialysis Wednesday although also receiving another day of dialysis weekly and patient is currently awaiting a kidney and pancreas transplant. Patient also with significant history of anxiety and depression is a former smoker and used to use large amounts of marijuana and methamphetamine. Patient currently maintained on Cleviprex drip and awaiting an ICU bed. Will discontinue Cleviprex and add hydralazine orally as well as IV as needed. Labs reviewed revealed a mildly elevated white count of 15.3, hemoglobin is 10, platelets are 445, sodium is 134 with a potassium of 4.8, BUN is 25 and creatinine is 3.97. Blood sugars were in the 2-3 100s, troponin was negative. Chest x-ray revealed mild bilateral central edema that remains present for fluid overload. CT brain showing no acute intracranial hemorrhage mass effect or midline shift noted. CT angio shows no significant vascular abnormality noted with small bilateral pleural effusions partially imaged. EKG with sinus rhythm 02/19/2024 Patient is evaluated today in follow-up in the medical floor. Patient underwent hemodialysis yesterday with plans for hemodialysis again today. Patient continues to report significant migraine rating a 10 out of 10 neurology is following and she has been placed on Fioricet as well as [place]. As well as IV Tylenol. brain MRI done showing chronic mastoiditis on the right with no acute intracranial process identified at this time. White blood cell count down to 13.9. Review of Systems Constitutional: Denied any fatigue denied any fever. Cardio vascular: denied any chest pain, palpitations Gastrointestinal: denied any nausea, vomiting, diarrhea Pulmonary: Denied any shortness of breath cough Neurologic denied any new focal deficits All inpatient medications were reviewed and appropriate changes in these medications as dictated in the interval history and assessment and plan. PHYSICAL EXAMINATION: GENERAL: The patient is alert and oriented x3, not in any acute distress. Well developed, well nourished. Elderly appearing, ill-appearing HEENT: Pupils are round and equally reacting to light. EOMI. No scleral icterus. No conjunctival pallor. Normocephalic, atraumatic. No pharyngeal erythema. No thyromegaly. CARDIOVASCULAR: S1 and S2 muffled PULMONARY: Diminished breath sounds bilaterally with some basilar crackles noted. ABDOMEN: Soft, nontender, nondistended, normoactive bowel sounds. No palpable organomegaly. MUSCULOSKELETAL: No joint swelling or deformity. EXTREMITIES: No cyanosis, clubbing, or pedal edema. NEUROLOGICAL: Gross neurological examination did not reveal any focal deficits. Diffusely weak SKIN: No rashes. Assessment: Right side weakness with recurrent visual loss, concerns for CVA versus TIA, brain MRI is negative for acute findings. History of CVA End-stage renal disease on hemodialysis Wednesday//Wednesday and patient reports has been receiving four times weekly History of diabetic gastroparesis with nausea and vomiting, currently controlled Diabetes melitis, type II, insulin-dependent, uncontrolled with hyperglycemia Hypertension, uncontrolled with elevated blood pressures on admission Volume overload with bilateral pleural effusions Acute on chronic hypoxic respiratory failure secondary to continued volume overload, patient reports has been wearing oxygen at [facility] continuously since last admission Generalized weakness with gait dysfunction Anemia of chronic disease History of optic neuritis status post CVA with right eye blindness, patient reported it recently resolved although when the symptoms started she is experiencing right eye blindness again GERD History of seizure disorder History of thyroid disorder GI prophylaxis DVT prophylaxis Full code Plan: Patient with concerns of right-sided weakness and visual disturbances with numbness with concerns of possible CVA versus TIA, neurology is consulted and pending, CTA was negative as well as CT of the brain. MRI is negative. Patient with uncontrolled blood pressure started on Cleviprex in the ER although will discontinue and resume home medications along with hydralazine and as needed. Continue Accu-Cheks before meals and at bedtime and will treat accordingly and titrate insulins as needed Nephrology following and will be having dialysis today and will follow-up on repeat labs Gait dysfunction with generalized weakness was at [facility] will reconsult PT/OT therapy Due to multiple complex medical issues, prognosis is guarded The impression and plan of care has been dictated by Yeni Blackburn, Nurse Practitioner as directed. Dr. Connie MD I have performed a history and physical examination and medical decision making of this patient, discussed the same with the dictator, and agree with the dictators assessment and plan as written, documented as a scribe. Based on total visit time, I have performed more than 50% of this visit. Objective - Vital Signs Vital signs: Vital Signs Temp 97.6 F 02/19/24 08:52 Pulse 81 02/19/24 13:00 Resp 18 02/19/24 11:27 BP 177/91 02/19/24 11:27 Pulse Ox 99 02/19/24 12:56 FiO2 Intake & Output 02/18/24 02/19/24 02/19/24 18:59 06:59 18:59 Intake Total 483.133 780 462 Output Total 2400 300 Balance -1916.867 480 462 Weight 75.7 kg Intake: Intake, IV Titration 83.133 Amount Clevidipine Butyrate 25 83.133 mg In Empty Bag 1 bag @ 1 MG/HR 2 mls/hr IV .Q24H [facility] Rx#:[id number] Oral 780 462 Hemodialysis 400 Output: Urine 300 Hemodialysis 2400 Other: Voiding Method Bedside Commode Bedside Commode # Voids 1 1 # Bowel Movements 1 - Labs CBC & Chem 7: 02/19/24 10:27 02/19/24 10:27 Labs: Abnormal Lab Results - Last 24 Hours (Table) 02/18/24 02/18/24 02/18/24 Range/Units 05:08 14:36 16:45 WBC (3.8-10.6) k/uL RBC (3.80-5.40) m/uL Hgb (11.4-16.0) gm/dL Hct (34.0-46.0) % RDW (11.5-15.5) % Neutrophils # (1.3-7.7) k/uL Eosinophils # (0-0.7) k/uL Sodium (137-145) mmol/L Chloride (98-107) mmol/L BUN (7-17) mg/dL Creatinine (0.52-1.04) mg/dL Glucose (74-99) mg/dL POC Glucose (mg/dL) 314 H 371 H (70-110) mg/dL Hemoglobin A1c 6.5 H (<=6.0) % Total Protein (6.3-8.2) g/dL Albumin (3.5-5.0) g/dL 02/18/24 02/19/24 02/19/24 Range/Units 21:44 01:57 02:17 WBC (3.8-10.6) k/uL RBC (3.80-5.40) m/uL Hgb (11.4-16.0) gm/dL Hct (34.0-46.0) % RDW (11.5-15.5) % Neutrophils # (1.3-7.7) k/uL Eosinophils # (0-0.7) k/uL Sodium (137-145) mmol/L Chloride (98-107) mmol/L BUN (7-17) mg/dL Creatinine (0.52-1.04) mg/dL Glucose (74-99) mg/dL POC Glucose (mg/dL) 161 H 35 L 52 L (70-110) mg/dL Hemoglobin A1c (<=6.0) % Total Protein (6.3-8.2) g/dL Albumin (3.5-5.0) g/dL 02/19/24 02/19/24 02/19/24 Range/Units 06:12 10:27 10:27 WBC 13.9 H (3.8-10.6) k/uL RBC 2.75 L (3.80-5.40) m/uL Hgb 9.0 L (11.4-16.0) gm/dL Hct 26.6 L (34.0-46.0) % RDW 16.8 H (11.5-15.5) % Neutrophils # 8.7 H (1.3-7.7) k/uL Eosinophils # 2.3 H (0-0.7) k/uL Sodium 130 L (137-145) mmol/L Chloride 93 L (98-107) mmol/L BUN 31 H (7-17) mg/dL Creatinine 3.98 H (0.52-1.04) mg/dL Glucose 248 H (74-99) mg/dL POC Glucose (mg/dL) 136 H (70-110) mg/dL Hemoglobin A1c (<=6.0) % Total Protein 5.3 L (6.3-8.2) g/dL Albumin 3.1 L (3.5-5.0) g/dL 02/19/24 Range/Units 11:34 WBC (3.8-10.6) k/uL RBC (3.80-5.40) m/uL Hgb (11.4-16.0) gm/dL Hct (34.0-46.0) % RDW (11.5-15.5) % Neutrophils # (1.3-7.7) k/uL Eosinophils # (0-0.7) k/uL Sodium (137-145) mmol/L Chloride (98-107) mmol/L BUN (7-17) mg/dL Creatinine (0.52-1.04) mg/dL Glucose (74-99) mg/dL POC Glucose (mg/dL) 263 H (70-110) mg/dL Hemoglobin A1c (<=6.0) % Total Protein (6.3-8.2) g/dL Albumin (3.5-5.0) g/dL Assessment and Plan Time with Patient: Less than 30
[2024-02-19 16:49] LABS: Glucose,Whole Blood 98 mg/dL (70-110)
[2024-02-19 20:25] LABS: Glucose,Whole Blood 218 mg/dL (70-110)
[2024-02-19] MEDS: MORPHINE SULFATE 2 MG/ML SYRINGE IVP STA (22:44)
[2024-02-19 22:52] LABS: Chol/HDL Ratio 2.99 Ratio; LDL Cholesterol,Calculated 24.3 mg/dL (0.0-131.0)
[2024-02-20 06:21] LABS: Glucose,Whole Blood 243 mg/dL (70-110)
[2024-02-20] MEDS: hydrALAZINE HCL 20 MG/ML 1 ML VIAL IVP PRN (10:24)
[2024-02-20] MEDS: cloNIDine HCL 0.1 MG TAB PO SCH (10:47)
--- NOTE | 2024-02-20 11:01 | P.PN ---
Subjective Progress Note Date: 02/19/24 Patient was seen for a follow-up. Patient is laying comfortably in the bed. Patient states her headache is improved with the Fioricet. Patient believes the headaches are coming from neck and shoulder. Denies any changes in her vision. Her examination has improved as mentioned below. Objective - Vital Signs Vital signs: Vital Signs Temp 97.9 F 02/19/24 18:11 Pulse 88 02/19/24 18:11 Resp 18 02/19/24 18:11 BP 180/94 02/19/24 18:11 Pulse Ox 100 02/19/24 18:11 FiO2 Intake & Output 02/18/24 02/19/24 02/19/24 18:59 06:59 18:59 Intake Total 483.133 780 962 Output Total 2400 300 3500 Balance -1916.867 480 -7268 Weight 75.7 kg Intake: Intake, IV Titration 83.133 Amount Clevidipine Butyrate 25 83.133 mg In Empty Bag 1 bag @ 1 MG/HR 2 mls/hr IV .Q24H [facility] Rx#:[id number] Oral 780 462 Hemodialysis 400 500 Output: Urine 300 Hemodialysis 2400 3500 Other: Voiding Method Bedside Commode Bedside Commode # Voids 1 0 # Bowel Movements 1 - Exam Patient is alert and awake. Speech and language functions are normal. Cranial nerves revealed right facial asymmetry, which is much better. Her vision remains same. Detailed vision exam deferred. On muscle strength testing, patient has right drift 45 degree but no pronation. Muscle strength is (right/left) deltoid 4+5-/5, biceps 5-/5, triceps 5/5, cord tire builder 4+/5, hip flexion 5-/5, ankle dorsiflexion 5/5. Sensory to touch is decreased in the right side of the body. No ataxia for [id number] testing. - Labs CBC & Chem 7: 02/19/24 10:27 02/19/24 10:27 Labs: Abnormal Lab Results - Last 24 Hours (Table) 02/18/24 02/18/24 02/19/24 Range/Units 05:08 21:44 01:57 WBC (3.8-10.6) k/uL RBC (3.80-5.40) m/uL Hgb (11.4-16.0) gm/dL Hct (34.0-46.0) % RDW (11.5-15.5) % Neutrophils # (1.3-7.7) k/uL Eosinophils # (0-0.7) k/uL Sodium (137-145) mmol/L Chloride (98-107) mmol/L BUN (7-17) mg/dL Creatinine (0.52-1.04) mg/dL Glucose (74-99) mg/dL POC Glucose (mg/dL) 161 H 35 L (70-110) mg/dL Hemoglobin A1c 6.5 H (<=6.0) % Total Protein (6.3-8.2) g/dL Albumin (3.5-5.0) g/dL 02/19/24 02/19/24 02/19/24 Range/Units 02:17 06:12 10:27 WBC 13.9 H (3.8-10.6) k/uL RBC 2.75 L (3.80-5.40) m/uL Hgb 9.0 L (11.4-16.0) gm/dL Hct 26.6 L (34.0-46.0) % RDW 16.8 H (11.5-15.5) % Neutrophils # 8.7 H (1.3-7.7) k/uL Eosinophils # 2.3 H (0-0.7) k/uL Sodium (137-145) mmol/L Chloride (98-107) mmol/L BUN (7-17) mg/dL Creatinine (0.52-1.04) mg/dL Glucose (74-99) mg/dL POC Glucose (mg/dL) 52 L 136 H (70-110) mg/dL Hemoglobin A1c (<=6.0) % Total Protein (6.3-8.2) g/dL Albumin (3.5-5.0) g/dL 02/19/24 02/19/24 Range/Units 10:27 11:34 WBC (3.8-10.6) k/uL RBC (3.80-5.40) m/uL Hgb (11.4-16.0) gm/dL Hct (34.0-46.0) % RDW (11.5-15.5) % Neutrophils # (1.3-7.7) k/uL Eosinophils # (0-0.7) k/uL Sodium 130 L (137-145) mmol/L Chloride 93 L (98-107) mmol/L BUN 31 H (7-17) mg/dL Creatinine 3.98 H (0.52-1.04) mg/dL Glucose 248 H (74-99) mg/dL POC Glucose (mg/dL) 263 H (70-110) mg/dL Hemoglobin A1c (<=6.0) % Total Protein 5.3 L (6.3-8.2) g/dL Albumin 3.1 L (3.5-5.0) g/dL Assessment and Plan Assessment: Acute onset of numbness and weakness of right side of the body including face arm and leg. Possible CVA. Her NIH stroke scale was 4 on arrival, but now it is 7. Patient was considered not a candidate for thrombolysis because of unknown last known well, and uncontrolled blood pressure. No LVO noted on CTA. Acute stroke ruled out. Uncertain if some component of hypertensive encephalopathy. History of chronic visual disturbance due to diabetic retinopathy, vitreous hemorrhage. History of small right occipital and left centrum semiovalve on previous MRI (outside) in November 2023. ESRD on dialysis since 04/21/2023 Chronic Diabetes Mellitus, with his most recent A1c 6.7 on 01/17/2024. 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 No acute intracranial process identified. I personally reviewed MRI, agree with the findings. No acute ischemic stroke. * Patient's examination has much improved although still has mild weakness on the right and continues to have numbness on the right. * Patient had a HAYDER performed 12/31/2023, which was normal. No need to repeat. * Patient underwent event monitoring from 01/03/2024 through 01/25/2024. The rhythm strip revealed sinus mechanism. No atrial fibrillation noted. No ventricular ectopy. * CTA of head and neck revealed no significant vascular abnormality. At least small bilateral pleural effusions are partially imaged. We will defer to IM regarding pleural effusion. * Hemoglobin A1c 6.7 on 01/17/2024, well controlled * Lipid panel cholesterol 129, LDL 24, HDL 43, triglycerides 308. Continue Lipitor 40 mg. * Patient was on aspirin 81 mg daily. Plavix 75 mg daily also initiated on this admission. * DVT prophylaxis: Start heparin 5000 unit every 12 hour. * PT OT, speech therapy. * Telemetry monitoring * Optimize control of blood pressure, to normotensive level. * Dr. Lakhwinder Thornton to start neurology service from 02/21/2024.
--- NOTE | 2024-02-20 11:13 | P.PN ---
Subjective Progress Note Date: 02/20/24 Patient follow-up for hemodialysis. Tolerated HD yesterday. Having nose bleeds over night and BP still elevated with headaches. Patient is awake, comfortable, no acute distress Examination of the heart S1 and S2 Examination of the lungs bilateral breath sounds are heard Abdomen is soft nontender Examination lower extremity shows no significant edema No focal deficits noted. Moving all 4 extremities Objective - Vital Signs Vital signs: Vital Signs Temp 98.3 F 02/20/24 08:58 Pulse 85 02/20/24 08:58 Resp 18 02/20/24 08:58 BP 182/108 02/20/24 08:58 Pulse Ox 98 02/20/24 08:58 FiO2 Intake & Output 02/19/24 02/20/24 02/20/24 18:59 06:59 18:59 Intake Total 962 Output Total 3500 200 Balance -2538 -200 Weight 74.1 kg Intake: Oral 462 Hemodialysis 500 Output: Urine 200 Hemodialysis 3500 Other: Voiding Method Bedside Commode Bedside Commode Bedside Commode # Voids 0 # Bowel Movements 1 - Labs CBC & Chem 7: 02/19/24 10:27 02/19/24 10:27 Labs: Abnormal Lab Results - Last 24 Hours (Table) 02/18/24 02/19/24 02/19/24 Range/Units 05:08 10:27 10:27 WBC 13.9 H (3.8-10.6) k/uL RBC 2.75 L (3.80-5.40) m/uL Hgb 9.0 L (11.4-16.0) gm/dL Hct 26.6 L (34.0-46.0) % RDW 16.8 H (11.5-15.5) % Neutrophils # 8.7 H (1.3-7.7) k/uL Eosinophils # 2.3 H (0-0.7) k/uL Sodium 130 L (137-145) mmol/L Chloride 93 L (98-107) mmol/L BUN 31 H (7-17) mg/dL Creatinine 3.98 H (0.52-1.04) mg/dL Glucose 248 H (74-99) mg/dL POC Glucose (mg/dL) (70-110) mg/dL Hemoglobin A1c 6.5 H (<=6.0) % Total Protein 5.3 L (6.3-8.2) g/dL Albumin 3.1 L (3.5-5.0) g/dL Triglycerides (0.00-149.00) mg/dL VLDL Cholesterol, Calc (5.00-40.00) mg/dL 02/19/24 02/19/24 02/19/24 Range/Units 10:27 11:34 20:23 WBC (3.8-10.6) k/uL RBC (3.80-5.40) m/uL Hgb (11.4-16.0) gm/dL Hct (34.0-46.0) % RDW (11.5-15.5) % Neutrophils # (1.3-7.7) k/uL Eosinophils # (0-0.7) k/uL Sodium (137-145) mmol/L Chloride (98-107) mmol/L BUN (7-17) mg/dL Creatinine (0.52-1.04) mg/dL Glucose (74-99) mg/dL POC Glucose (mg/dL) 263 H 218 H (70-110) mg/dL Hemoglobin A1c (<=6.0) % Total Protein (6.3-8.2) g/dL Albumin (3.5-5.0) g/dL Triglycerides 308.00 H (0.00-149.00) mg/dL VLDL Cholesterol, Calc 61.60 H (5.00-40.00) mg/dL 02/20/24 Range/Units 06:19 WBC (3.8-10.6) k/uL RBC (3.80-5.40) m/uL Hgb (11.4-16.0) gm/dL Hct (34.0-46.0) % RDW (11.5-15.5) % Neutrophils # (1.3-7.7) k/uL Eosinophils # (0-0.7) k/uL Sodium (137-145) mmol/L Chloride (98-107) mmol/L BUN (7-17) mg/dL Creatinine (0.52-1.04) mg/dL Glucose (74-99) mg/dL POC Glucose (mg/dL) 243 H (70-110) mg/dL Hemoglobin A1c (<=6.0) % Total Protein (6.3-8.2) g/dL Albumin (3.5-5.0) g/dL Triglycerides (0.00-149.00) mg/dL VLDL Cholesterol, Calc (5.00-40.00) mg/dL Assessment and Plan Plan: 1. End-stage renal disease on hemodialysis on a Wednesday schedule 2. Volume overload significantly improved over the last 1 week. 3. Hypertension with hypertensive emergency on admission. S/p Cleviprex drip, now on oral medications. Pain control for headache. 4. Diabetic gastroparesis and nausea and vomiting, improved with Reglan. However Reglan has caused galactorrhea which seems to be improving per patient. 5. Right-sided weakness seems to have improved. CT of the brain was negative. CTA negative as well 6. Uncontrolled diabetes Plan: Hemodialysis yesterday, plan again tomorrow to optimize fluid status. Weaned off Cleviprex drip, home medications resumed. BP remains high, will start PO Clonidine 0.1mg TID. If epistaxis continues will consider DDAVP for uremic platelet dysfunction. MRI brain negative for acute process.
--- NOTE | 2024-02-20 11:20 | P.PN ---
Subjective Progress Note Date: 02/20/24 Principal diagnosis: Hypertensive emergency. Pulmonary consult dated February 18, 2024. This is a 34-year-old female with a history of multiple medical problems, who was seen in the emergency department, trauma room #1. The patient was admitted with a diagnosis of hypertensive emergency. Her blood pressure was well over 200 systolic. The patient was started on Cleviprex, and is currently on Cleviprex at 7 mg an hour. She is getting oxygen at 3 L by nasal cannula. CT of the brain was negative for anything acute, and angiography CT, was also negative. The patient was brought in from [facility]. The patient was recently in the hospital, on February 04, for fluid overload, hypoxemic respiratory failure, end-stage renal disease, hyperkalemia, anemia of chronic di sease, diabetes, recent CVA with right-sided weakness, and optic neuritis. The patient is very lethargic today in the emergency department. White count 15.3, hemoglobin 10, hematocrit 30.5, platelet count 445,000. Sodium 134, potassium 4.8, chloride 93, CO2 34, BUN 25, and creatinine 3.97. Glucose is 287. ALT is 40. Troponin less than 0.012. Albumin 3.8. Chest x-ray shows fluid overload. Progress note dated February 19, 2024. This is a 34-year-old female with a history of end-stage renal disease, who was seen in the emergency department yesterday, with hypertensive emergency, and hypertensive encephalopathy. In the emergency department, the patient was on Cleviprex for blood pressure support. Currently, she is seen in room 365. She is feeling better. She is on 3 L of oxygen. She is not receiving any IV fluids. Obviously, because she is on the floor, she is no longer on Cleviprex. White count is 13.9, hemoglobin 9, hematocrit 26.6, platelet count 351,000. Sodium 130, potassium 5, chloride 73, CO2 28, BUN 31, and creatinine 3.98. Glucose is 263. Albumin is 3.1. Progress note dated February 20, 2024. The patient is seen today in room 365. She is currently on room air. She is not receiving any IV fluids. Unfortunately, the patient developed some epistaxis, and has been having issues with bleeding from the left nostril, since last night. Other than that, she is doing reasonably well. No new labs today other than a glucose of 243. Objective - Vital Signs Vital signs: Vital Signs Temp 98.3 F 02/20/24 08:58 Pulse 83 02/20/24 10:45 Resp 18 02/20/24 10:45 BP 176/97 02/20/24 10:45 Pulse Ox 97 02/20/24 10:45 FiO2 Intake & Output 02/19/24 02/20/24 02/20/24 18:59 06:59 18:59 Intake Total 962 540 Output Total 3500 200 Balance -2538 -200 540 Weight 74.1 kg Intake: Oral 462 540 Hemodialysis 500 Output: Urine 200 Hemodialysis 3500 Other: Voiding Method Bedside Commode Bedside Commode Bedside Commode # Voids 0 # Bowel Movements 1 - Exam No acute distress, awake and alert, currently on room air. HEENT examination is grossly unremarkable. Mucous membranes are moist. No oral lesions. Bleeding from left nostril. Most of the blood is dried, and dark. Neck supple. Full range of motion. No adenopathy thyromegaly or neck vein distention. Cardiovascular examination reveals regular rhythm rate. S1-S2 normal. No S3 or S4. No discernible murmur noted. HR is 83 bpm. Lungs reveal diffuse crackles. Breath sounds are equal bilaterally. No rhonchi. No wheezes. Breath Sounds Are Improved. Breath sounds equal bilaterally. Saturations are 97 %. Abdomen soft bowel sounds are heard. No masses or tenderness. Extremities are intact. No cyanosis clubbing or edema. Skin is without rash or lesion. Neurologic examination reveals the patient to be more awake and alert. - Labs CBC & Chem 7: 02/19/24 10:27 02/19/24 10:27 Labs: Abnormal Lab Results - Last 24 Hours (Table) 02/19/24 02/19/24 02/19/24 Range/Units 10:27 10:27 10:27 WBC 13.9 H (3.8-10.6) k/uL RBC 2.75 L (3.80-5.40) m/uL Hgb 9.0 L (11.4-16.0) gm/dL Hct 26.6 L (34.0-46.0) % RDW 16.8 H (11.5-15.5) % Neutrophils # 8.7 H (1.3-7.7) k/uL Eosinophils # 2.3 H (0-0.7) k/uL Sodium 130 L (137-145) mmol/L Chloride 93 L (98-107) mmol/L BUN 31 H (7-17) mg/dL Creatinine 3.98 H (0.52-1.04) mg/dL Glucose 248 H (74-99) mg/dL POC Glucose (mg/dL) (70-110) mg/dL Total Protein 5.3 L (6.3-8.2) g/dL Albumin 3.1 L (3.5-5.0) g/dL Triglycerides 308.00 H (0.00-149.00) mg/dL VLDL Cholesterol, Calc 61.60 H (5.00-40.00) mg/dL 02/19/24 02/19/24 02/20/24 Range/Units 11:34 20:23 06:19 WBC (3.8-10.6) k/uL RBC (3.80-5.40) m/uL Hgb (11.4-16.0) gm/dL Hct (34.0-46.0) % RDW (11.5-15.5) % Neutrophils # (1.3-7.7) k/uL Eosinophils # (0-0.7) k/uL Sodium (137-145) mmol/L Chloride (98-107) mmol/L BUN (7-17) mg/dL Creatinine (0.52-1.04) mg/dL Glucose (74-99) mg/dL POC Glucose (mg/dL) 263 H 218 H 243 H (70-110) mg/dL Total Protein (6.3-8.2) g/dL Albumin (3.5-5.0) g/dL Triglycerides (0.00-149.00) mg/dL VLDL Cholesterol, Calc (5.00-40.00) mg/dL Assessment and Plan Assessment: Acute hypertensive urgency, with hypertensive encephalopathy, and mental status changes. Recent admission, in January 2024, for hypoxemic respiratory failure, and fluid overload. History of end-stage renal disease, currently on hemodialysis. Anemia of chronic disease. Diabetes mellitus. Recent CVA with right-sided weakness. History of optic neuritis. Plan: Plan dated February 18, 2024. Currently, the patient is on Cleviprex at 7 mg an hour. The patient is on nasal O2 at 3 L/min. CT scan of the brain was negative. Angiography CT was also negative. The patient's blood pressure is under better control. The patient has a history of multiple medical problems including end-stage renal disease, anemia of chronic disease, diabetes, optic neuritis, and previous CVA. The patient was hospitalized in January of this year, with an episode of hypoxemic respiratory failure, secondary to fluid overload. Labs, x-rays, medications are reviewed. We will continue to follow make recommendations along the way. Plan dated February 19, 2024. The patient was evaluated in the emergency department yesterday. She was on Cleviprex for blood pressure support. The patient is also on 3 L of oxygen. Chest x-ray showed fluid overload. The patient was initially evaluated for possible stroke. It was thought afterward, the patient likely had hypertensive encephalopathy. Labs, x-rays, and medications are reviewed. Overall, the patient appears to be doing much better. She is not receiving any IV fluids. She is getting 3 L of oxygen. We will continue to follow, make recommendations along the way. Plan dated February 20, 2024. The patient is seen in room 365. The patient was initially seen in the emergency department, for hypertensive emergency, and encephalopathy secondary to hypertension. Labs, x-rays, and medications are reviewed. The patient is on room air. She is not receiving any IV fluids. The patient had issues with epistaxis last night. We will continue to follow and make recommendations. Prognosis is guarded. Time with Patient: Less than 30
[2024-02-20 11:31] LABS: Glucose,Whole Blood 184 mg/dL (70-110)
[2024-02-20] MEDS: MORPHINE SULFATE 2 MG/ML SYRINGE IVP STA (12:32)
[2024-02-20] MEDS: dexAMETHasone 4 MG TAB PO SCH (13:40)
[2024-02-20] MEDS: OXYMETAZOLINE 0.05% NASL SPRAY 1 SPRAY BOTTLE NASAL STA (13:42)
--- NOTE | 2024-02-20 14:07 | P.PN ---
Subjective Progress Note Date: 02/20/24 This is a 34-year-old female who presented to the emergency department via EMS from [facility] where she has no PCP in the outpatient setting but has been followed by Dr. Morgan while in rehab with reports of uncontrolled hypertension and volume overload. Patient also with concerns of stroke with 3 days of on going headache and woke up again this morning from a sleep having weakness in her right arm and leg as well as some numbness on the side of her face. Patient reports she has been having difficulty with controlling her blood pressure and was recently started on clonidine patch although reports to having some itching and feels it is related to the patch. Patient with significant past medical history of CVA, insulin-dependent diabetes, GERD, hypertension, renal disease, seizure disorder, thyroid disorder, gastroparesis, maintained on hemodialysis Wednesday although also receiving another day of dialysis weekly and patient is currently awaiting a kidney and pancreas transplant. Patient also with significant history of anxiety and depression is a former smoker and used to use large amounts of marijuana and methamphetamine. Patient currently maintained on Cleviprex drip and awaiting an ICU bed. Will discontinue Cleviprex and add hydralazine orally as well as IV as needed. Labs reviewed revealed a mildly elevated white count of 15.3, hemoglobin is 10, platelets are 445, sodium is 134 with a potassium of 4.8, BUN is 25 and creatinine is 3.97. Blood sugars were in the 2-3 100s, troponin was negative. Chest x-ray revealed mild bilateral central edema that remains present for fluid overload. CT brain showing no acute intracranial hemorrhage mass effect or midline shift noted. CT angio shows no significant vascular abnormality noted with small bilateral pleural effusions partially imaged. EKG with sinus rhythm 02/19/2024 Patient is evaluated today in follow-up in the medical floor. Patient underwent hemodialysis yesterday with plans for hemodialysis again today. Patient continues to report significant migraine rating a 10 out of 10 neurology is following and she has been placed on Fioricet as well as [place]. As well as IV Tylenol. brain MRI done showing chronic mastoiditis on the right with no acute intracranial process identified at this time. White blood cell count down to 13.9. 02/20/2024 Patient is evaluated in follow-up today on the medical floor. Patient underwent hemodialysis yesterday she got 3.5 L of fluid off. She continues to report significant headache she feels like it is originating from her cervical spine with radiation up into her head and down into her back she feels tense. Patient states that morphine is only thing it is helping at this time. She has concerns that she has had viral meningitis in the past. Clinical examination this is more likely a cervical radiculopathy and patient will be treated with high-dose steroids for a short course and monitor for clinical improvement. There is no signs of nuchal rigidity. This was discussed with neurology who felt neurologically she is clear with no further workup indicated as her MRI only reveals chronic mastoiditis. Review of Systems Constitutional: Denied any fatigue denied any fever. Cardio vascular: denied any chest pain, palpitations Gastrointestinal: denied any nausea, vomiting, diarrhea Pulmonary: Denied any shortness of breath cough Neurologic denied any new focal deficits All inpatient medications were reviewed and appropriate changes in these medications as dictated in the interval history and assessment and plan. PHYSICAL EXAMINATION: GENERAL: The patient is alert and oriented x3, not in any acute distress. Well developed, well nourished. Elderly appearing, ill-appearing HEENT: Pupils are round and equally reacting to light. EOMI. No scleral icterus. No conjunctival pallor. Normocephalic, atraumatic. No pharyngeal erythema. No th yromegaly. CARDIOVASCULAR: S1 and S2 muffled PULMONARY: Diminished breath sounds bilaterally with some basilar crackles noted. ABDOMEN: Soft, nontender, nondistended, normoactive bowel sounds. No palpable organomegaly. MUSCULOSKELETAL: No joint swelling or deformity. EXTREMITIES: No cyanosis, clubbing, or pedal edema. NEUROLOGICAL: Gross neurological examination did not reveal any focal deficits. Diffusely weak SKIN: No rashes. Assessment: Right side weakness with recurrent visual loss, concerns for CVA versus TIA, brain MRI is negative for acute findings. History of CVA End-stage renal disease on hemodialysis Wednesday//Wednesday and patient reports has been receiving four times weekly History of diabetic gastroparesis with nausea and vomiting, currently controlled Diabetes melitis, type II, insulin-dependent, uncontrolled with hyperglycemia Hypertension, uncontrolled with elevated blood pressures on admission Cervical radiculopathy will continue with oral Decadron for a short course as well as continue with [place]. Patient may benefit from a pain management consultation. Volume overload with bilateral pleural effusions Acute on chronic hypoxic respiratory failure secondary to continued volume overload, patient reports has been wearing oxygen at [facility] continuously since last admission Generalized weakness with gait dysfunction Anemia of chronic disease History of optic neuritis status post CVA with right eye blindness, patient reported it recently resolved although when the symptoms started she is experiencing right eye blindness again GERD History of seizure disorder History of thyroid disorder GI prophylaxis DVT prophylaxis Full code Plan: Patient with concerns of right-sided weakness and visual disturbances with numbness with concerns of possible CVA versus TIA, neurology is consulted and pending, CTA was negative as well as CT of the brain. MRI is negative. Patient with uncontrolled blood pressure started on Cleviprex in the ER although will discontinue and resume home medications along with hydralazine and as needed. Blood pressure is slowly improving. Continue Accu-Cheks before meals and at bedtime and will treat accordingly and titrate insulins as needed Nephrology following patient is to undergo hemodialysis on Wednesday and will follo w-up on repeat labs the morning Patient is continued migraine which is not improving with pain medications. Patient be given a short course of high-dose oral steroids and monitor for clinical improvement. Gait dysfunction with generalized weakness was at [facility] will reconsult PT/OT therapy Due to multiple complex medical issues, prognosis is guarded The impression and plan of care has been dictated by Yeni Blackburn, Nurse Practitioner as directed. Dr. Connie MD I have performed a history and physical examination and medical decision making of this patient, discussed the same with the dictator, and agree with the dictators assessment and plan as written, documented as a scribe. Based on total visit time, I have performed more than 50% of this visit. Objective - Vital Signs Vital signs: Vital Signs Temp 97.7 F 02/20/24 12:31 Pulse 82 02/20/24 13:39 Resp 18 02/20/24 13:39 BP 160/91 02/20/24 13:39 Pulse Ox 94 L 02/20/24 13:39 FiO2 Intake & Output 02/19/24 02/20/24 02/20/24 18:59 06:59 18:59 Intake Total 962 540 Output Total 3500 200 Balance -2538 -200 540 Weight 74.1 kg Intake: Oral 462 540 Hemodialysis 500 Output: Urine 200 Hemodialysis 3500 Other: Voiding Method Bedside Commode Bedside Commode Bedside Commode # Voids 0 # Bowel Movements 1 - Labs CBC & Chem 7: 02/19/24 10:27 02/19/24 10:27 Labs: Abnormal Lab Results - Last 24 Hours (Table) 02/19/24 02/19/24 02/20/24 Range/Units 10:27 20:23 06:19 POC Glucose (mg/dL) 218 H 243 H (70-110) mg/dL Triglycerides 308.00 H (0.00-149.00) mg/dL VLDL Cholesterol, Calc 61.60 H (5.00-40.00) mg/dL 02/20/24 Range/Units 11:28 POC Glucose (mg/dL) 184 H (70-110) mg/dL Triglycerides (0.00-149.00) mg/dL VLDL Cholesterol, Calc (5.00-40.00) mg/dL Assessment and Plan Time with Patient: Less than 30
--- NOTE | 2024-02-20 14:52 | P.PN ---
Subjective Progress Note Date: 02/20/24 Patient was seen for a follow-up. Patient is sleeping comfortably in the bed. On waking up, patient states her headache is 9/10, also neck pain 9/10. Fioricet is helping. She appears comfortable, although complaining of 9/10 pain. Primary has started on steroids and muscle relaxer. Denies any new c hanges in her vision. Her examination has improved as mentioned below. Objective - Vital Signs Vital signs: Vital Signs Temp 97.7 F 02/20/24 12:31 Pulse 82 02/20/24 13:39 Resp 18 02/20/24 13:39 BP 160/91 02/20/24 13:39 Pulse Ox 94 L 02/20/24 13:39 FiO2 Intake & Output 02/19/24 02/20/24 02/20/24 18:59 06:59 18:59 Intake Total 962 762 Output Total 3500 200 Balance -2538 -200 762 Weight 74.1 kg Intake: Oral 462 762 Hemodialysis 500 Output: Urine 200 Hemodialysis 3500 Other: Voiding Method Bedside Commode Bedside Commode Bedside Commode # Voids 0 # Bowel Movements 1 - Exam Patient is alert and awake. Speech and language functions are normal. Cranial nerves revealed right facial asymmetry, which is much better. Her vision remains same. Detailed vision exam deferred. On muscle strength testing, patient has right drift 45 degree but no pronation. Muscle strength is (right/left) deltoid 4+5-/5, biceps 5-/5, triceps 5/5, epic [facility] 4+/5, hip flexion 5-/5, ankle dorsiflexion 5/5. Sensory to touch is decreased in the right side of the body. No ataxia for [id number] testing. - Labs CBC & Chem 7: 02/19/24 10:27 02/19/24 10:27 Labs: Abnormal Lab Results - Last 24 Hours (Table) 02/19/24 02/19/24 02/20/24 Range/Units 10:27 20:23 06:19 POC Glucose (mg/dL) 218 H 243 H (70-110) mg/dL Triglycerides 308.00 H (0.00-149.00) mg/dL VLDL Cholesterol, Calc 61.60 H (5.00-40.00) mg/dL 02/20/24 Range/Units 11:28 POC Glucose (mg/dL) 184 H (70-110) mg/dL Triglycerides (0.00-149.00) mg/dL VLDL Cholesterol, Calc (5.00-40.00) mg/dL Assessment and Plan Assessment: Acute onset of numbness and weakness of right side of the body including face arm and leg. Possible CVA. Her NIH stroke scale was 4 on arrival, but now it is 7. Patient was considered not a candidate for thrombolysis because of unknown last known well, and uncontrolled blood pressure. No LVO noted on CTA. Acute stroke ruled out. Uncertain if some component of hypertensive encephalopathy. Cephalgia, and neck pain unclear cause. History of chronic visual disturbance due to diabetic retinopathy, vitreous hemorrhage. History of small right occipital and left centrum semiovalve on previous MRI (outside) in November 2023. ESRD on dialysis since 04/21/2023 Chronic Diabetes Mellitus, with his most recent A1c 6.7 on 01/17/2024. 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 No acute intracranial process identified. I personally reviewed MRI, agree with the findings. No acute ischemic stroke. * Patient's examination has much improved although still has mild weakness on the right and continues to have numbness on the right. * Patient concerned about viral meningitis which she had suffered from before. Patient is on Plavix, cannot do lumbar puncture at this time. Discussed that we should hold Plavix, but patient wants to continue Plavix for now. Primary has started patient on steroids and muscle relaxer. We will follow. * Patient had a HAYDER performed 12/31/2023, which was normal. No need to repeat. * Patient underwent event monitoring from 01/03/2024 through 01/25/2024. The rhythm strip revealed sinus mechanism. No atrial fibrillation noted. No ventricular ectopy. * CTA of head and neck revealed no significant vascular abnormality. At least small bilateral pleural effusions are partially imaged. We will defer to IM regarding pleural effusion. * Hemoglobin A1c 6.7 on 01/17/2024, well controlled * Lipid panel cholesterol 129, LDL 24, HDL 43, triglycerides 308. Continue Lipitor 40 mg. * Patient was on aspirin 81 mg daily. Plavix 75 mg daily also initiated on this admission. * Patient on Protonix 40 mg daily for gastric ulcer prophylaxis. * DVT prophylaxis: Start heparin 5000 unit every 12 hour. * PT OT, speech therapy. * Telemetry monitoring * Optimize control of blood pressure, to normotensive level. Discussed with primary team. * Dr. Lakhwinder Thornton to start neurology service from Wednesday morning, 02/21/2024.
[2024-02-20 16:34] LABS: Glucose,Whole Blood 151 mg/dL (70-110)
[2024-02-20 20:00] LABS: Glucose,Whole Blood 165 mg/dL (70-110)
[2024-02-21 05:45] LABS: Glucose,Whole Blood 266 mg/dL (70-110)
[2024-02-21 09:32] LABS: Anisocytosis Slight; HCT 28.3 % (34.0-46.0); HGB 8.9 gm/dL (11.4-16.0); Hypochromasia Slight; MCH 31.2 pg (25.0-35.0); MCHC 31.7 g/dL (31.0-37.0); MCV 98.4 fL (80.0-100.0); Macrocytosis Slight; Mean Platelet Volume 7.5; Platelet Count 315 k/uL (150-450); RBC 2.87 m/uL (3.80-5.40); RDW 17.1 % (11.5-15.5)
[2024-02-21] MEDS: HYDROcodone/APAP 7.5-325MG 1 EACH TAB PO PRN (09:39)
[2024-02-21 09:56] LABS: African American GFR (CKD) 12 (>60 ml/min/1.73 sqM); Anion Gap 12 mmol/L; Blood Urea Nitrogen 35 mg/dL (7-17); Calcium 8.9 mg/dL (8.4-10.2); Carbon Dioxide 25 mmol/L (22-30); Chloride 96 mmol/L (98-107); Glucose 193 mg/dL (74-99); Non-African American GFR(CKD) 11 (>60 ml/min/1.73 sqM); Potassium 4.7 mmol/L (3.5-5.1); Sodium 133 mmol/L (137-145)
[2024-02-21 11:27] LABS: Glucose,Whole Blood 248 mg/dL (70-110)
--- NOTE | 2024-02-21 11:58 | P.PN ---
Subjective Patient is seen in follow-up for end-stage renal disease. She is maintained on hemodialysis on Wednesday schedule. Last dialysis Wednesday. Still having nosebleed. No vomiting or diarrhea. Vital signs are stable. General: No acute distress. HEENT: Head exam is unremarkable. Nasal packing noted. LUNGS: No audible rhonchi or wheezes. HEART: Rate and Rhythm are regular. ABDOMEN: Nontender. EXTREMITITES: No edema. Objective - Vital Signs Vital signs: Vital Signs Temp 97.9 F 02/21/24 09:35 Pulse 83 02/21/24 09:35 Resp 17 02/21/24 09:35 BP 197/98 02/21/24 09:35 Pulse Ox 98 02/21/24 09:35 FiO2 Intake & Output 02/20/24 02/21/24 02/21/24 18:59 06:59 18:59 Intake Total 784 540 Output Total 200 Balance 784 340 Weight 75.5 kg Intake: Oral 784 540 Output: Urine 200 Other: Voiding Method Bedside Commode Bedside Commode Bedside Commode # Voids 1 1 - Labs CBC & Chem 7: 02/21/24 08:39 02/21/24 08:39 Labs: Abnormal Lab Results - Last 24 Hours (Table) 02/20/24 02/20/24 02/21/24 Range/Units 16:32 19:58 05:44 WBC (3.8-10.6) k/uL RBC (3.80-5.40) m/uL Hgb (11.4-16.0) gm/dL Hct (34.0-46.0) % RDW (11.5-15.5) % Sodium (137-145) mmol/L Chloride (98-107) mmol/L BUN (7-17) mg/dL Creatinine (0.52-1.04) mg/dL Glucose (74-99) mg/dL POC Glucose (mg/dL) 151 H 165 H 266 H (70-110) mg/dL 02/21/24 02/21/24 02/21/24 Range/Units 08:39 08:39 11:25 WBC 15.0 H (3.8-10.6) k/uL RBC 2.87 L (3.80-5.40) m/uL Hgb 8.9 L (11.4-16.0) gm/dL Hct 28.3 L (34.0-46.0) % RDW 17.1 H (11.5-15.5) % Sodium 133 L (137-145) mmol/L Chloride 96 L (98-107) mmol/L BUN 35 H (7-17) mg/dL Creatinine 5.03 H (0.52-1.04) mg/dL Glucose 193 H (74-99) mg/dL POC Glucose (mg/dL) 248 H (70-110) mg/dL Assessment and Plan Plan: Assessment: 1. End-stage renal disease maintained on hemodialysis on Wednesday ay Wednesday schedule. 2. Hypertension with chronic kidney disease. 3. Diabetes mellitus. 4. Anemia of chronic kidney disease. 5. Chronic kidney disease mineral bone disease maintained on Renvela. 6. Volume overload. Improved with ultrafiltration. 7. Right-sided weakness. Improved. CT of the brain and CTA negative. 8. Diabetic gastroparesis. Plan: Hemodialysis today and again tomorrow. IV DDAVP x 1 dose today due to nosebleed. Stop Fleet enemas. Add Aranesp. Increase dose of clonidine.
[2024-02-21] MEDS: DESMOPRESSIN ACETATE 20 MCG in SODIUM CHLORIDE 0.9% 50 ML IVPB ONE (12:25)
[2024-02-21] MEDS: DARBEPOETIN ALFA 40 MCG/0.4 ML SYRINGE SQ SCH (12:25)
[2024-02-21] MEDS: cloNIDine HCL 0.2 MG TAB PO SCH (15:45)
--- NOTE | 2024-02-21 16:09 | P.PN ---
Subjective Progress Note Date: 02/21/24 This is a 34-year-old female with a history of multiple medical problems, who was seen in the emergency department, trauma room #1. The patient was admitted with a diagnosis of hypertensive emergency. Her blood pressure was well over 200 systolic. The patient was started on Cleviprex, and is currently on Cleviprex at 7 mg an hour. She is getting oxygen at 3 L by nasal cannula. CT of the brain was negative for anything acute, and angiography CT, was also negative. The patient was brought in from [facility]. The patient was recently in the hospital, on February 04, for fluid overload, hypoxemic respiratory failure, end-stage renal disease, hyperkalemia, anemia of chronic disease, diabetes, recent CVA with right-sided weakness, and optic neuritis. The patient is very lethargic today in the emergency department. White count 15.3, hemoglobin 10, hematocrit 30.5, platelet count 445,000. Sodium 134, potassium 4.8, chloride 93, CO2 34, BUN 25, and creatinine 3.97. Glucose is 287. ALT is 40. Troponin less than 0.012. Albumin 3.8. Chest x-ray shows fluid overload. Progress note dated February 19, 2024. This is a 34-year-old female with a history of end-stage renal disease, who was seen in the emergency department yesterday, with hypertensive emergency, and hypertensive encephalopathy. In the emergency department, the patient was on Cleviprex for blood pressure support. Currently, she is seen in room 365. She is feeling better. She is on 3 L of oxygen. She is not receiving any IV fluids. Obviously, because she is on the floor, she is no longer on Cleviprex. White count is 13.9, hemoglobin 9, hematocrit 26.6, platelet count 351,000. Sodium 130, potassium 5, chloride 73, CO2 28, BUN 31, and creatinine 3.98. Glucose is 263. Albumin is 3.1. Progress note dated February 20, 2024. The patient is seen today in room 365. She is currently on room air. She is not receiving any IV fluids. Unfortunately, the patient developed some epistaxis, and has been having issues with bleeding from the left nostril, since last night. Other than that, she is doing reasonably well. No new labs today other than a glucose of 243. On today's evaluation of 02/21/2024, the patient is being seen for a follow-up. The patient is on room air oxygen. The active issue for now remains elevated blood pressure. Earlier this morning, the patient's blood pressure was as high as 181/100. Clonidine was added to the regimen and the patient is currently on clonidine 0.2 mg p.o. 3 times daily. She is also on nifedipine 60 mg p.o. twice daily Imdur 30 mg p.o. daily hydralazine 100 mg p.o. 3 times daily and Coreg 25 mg p.o. twice a day. Noted blood pressure subsequently improved. She is having episodes of tach epistaxis. The nostril is currently packed and the patient is awaiting ENT evaluation. Today is a dialysis day for this patient. The white cell count of 15 with a hemoglobin 8.9 and a platelet count of 315. BUN is 35 with a creatinine of 5 and a sodium levels at 133. The patient is currently on room air oxygen with a pulse ox of 95%. No altered mentation at this point in time and she is fully alert and awake and communicating. Objective - Vital Signs Vital signs: Vital Signs Temp 97.9 F 02/21/24 09:35 Pulse 83 02/21/24 09:35 Resp 17 02/21/24 09:35 BP 197/98 02/21/24 09:35 Pulse Ox 98 02/21/24 09:35 FiO2 Intake & Output 02/20/24 02/21/24 02/21/24 18:59 06:59 18:59 Intake Total 784 540 Output Total 200 Balance 784 340 Weight 75.5 kg Intake: Oral 784 540 Output: Urine 200 Other: Voiding Method Bedside Commode Bedside Commode Bedside Commode # Voids 1 1 - Exam No acute distress, awake and alert, currently on room air. The patient is nostril is packed due to recurrent epistaxis. No signs of any respiratory distress at this point in time. HEENT examination is grossly unremarkable. Mucous membranes are moist. No oral lesions. Bleeding from left nostril. Most of the blood is dried, and dark. Neck supple. Full range of motion. No adenopathy thyromegaly or neck vein distention. Cardiovascular examination reveals regular rhythm rate. S1-S2 normal. No S3 or S4. No discernible murmur noted. Lungs reveal diffuse crackles. Breath sounds are equal bilaterally. No rhonchi. No wheezes. Breath Sounds Are Improved. Breath sounds equal bilat erally. Abdomen soft bowel sounds are heard. No masses or tenderness. Extremities are intact. No cyanosis clubbing or edema. Skin is without rash or lesion. Neurologic examination reveals the patient to be more awake and alert. - Labs CBC & Chem 7: 02/21/24 08:39 02/21/24 08:39 Labs: Abnormal Lab Results - Last 24 Hours (Table) 02/20/24 02/20/24 02/21/24 Range/Units 16:32 19:58 05:44 WBC (3.8-10.6) k/uL RBC (3.80-5.40) m/uL Hgb (11.4-16.0) gm/dL Hct (34.0-46.0) % RDW (11.5-15.5) % Sodium (137-145) mmol/L Chloride (98-107) mmol/L BUN (7-17) mg/dL Creatinine (0.52-1.04) mg/dL Glucose (74-99) mg/dL POC Glucose (mg/dL) 151 H 165 H 266 H (70-110) mg/dL 02/21/24 02/21/24 02/21/24 Range/Units 08:39 08:39 11:25 WBC 15.0 H (3.8-10.6) k/uL RBC 2.87 L (3.80-5.40) m/uL Hgb 8.9 L (11.4-16.0) gm/dL Hct 28.3 L (34.0-46.0) % RDW 17.1 H (11.5-15.5) % Sodium 133 L (137-145) mmol/L Chloride 96 L (98-107) mmol/L BUN 35 H (7-17) mg/dL Creatinine 5.03 H (0.52-1.04) mg/dL Glucose 193 H (74-99) mg/dL POC Glucose (mg/dL) 248 H (70-110) mg/dL Assessment and Plan Plan: Acute hypertensive urgency, with hypertensive encephalopathy, and mental status changes. Blood pressure remains elevated although it is under better control for now. The patient is on a combination of antihypertensive medication. Close BP monitoring and adjustment of the blood pressure medication is being done at this point in time. Recent admission, in January 2024, for hypoxemic respiratory failure, and fluid overload. History of end-stage renal disease, currently on hemodialysis. Anemia of chronic disease. Diabetes mellitus. Recent CVA with right-sided weakness. History of optic neuritis. Epistaxis, probably addicted to her poorly controlled blood pressure. Plan: Continue blood pressure management Clonidine 0.2 mg 3 times daily Procardia 60 mg p.o. twice daily Coreg 25 mg p.o. twice daily Hydralazine 100 mg 3 times daily Patient undergoing periodic dialysis per nephrology No signs of encephalopathy Awaiting ENT consultation regarding the recurrent epistaxis. The left nostril is packed.
[2024-02-21 16:12] LABS: Glucose,Whole Blood 193 mg/dL (70-110)
--- NOTE | 2024-02-21 16:16 | P.PN ---
Subjective Progress Note Date: 02/21/24 I am seeing the patient for the first time during this admission. Please refer to Dr. Severino's notes for further details. She presents back with headaches since last with nausea, vomiting. Her nausea and vomiting has resolved. Dr. Severino recommended lumbar puncture but recommended holding Plavix but she refused. She feels headache is improving with Morphine and Fioricet. Dr. Severino recommended a lumbar puncture but she is on Plavix and refused to hold Plavix and pursue with Lumbar puncture. /She continues to have headache over the bilateral frontal that is constant, radiates to neck. Headache is Has nausea and vomiting. Has visual disturbance. Objective - Vital Signs Vital signs: Vital Signs Temp 98.3 F 02/21/24 15:43 Pulse 94 02/21/24 15:43 Resp 14 02/21/24 15:43 BP 161/91 02/21/24 15:43 Pulse Ox 94 L 02/21/24 15:43 FiO2 Intake & Output 02/20/24 02/21/24 02/21/24 18:59 06:59 18:59 Intake Total 784 762 Output Total 200 Balance 784 562 Weight 75.5 kg Intake: Oral 784 762 Output: Urine 200 Other: Voiding Method Bedside Commode Bedside Commode Bedside Commode # Voids 1 1 - Exam General: Lying in bed and is not in acute distress. Neuro: The patient is awake, alert, oriented to self, place and time. Is following simple commands. Pupils are round, equal and reactive to light. Visual armendariz are full to confrontation. EOM intact and no nystagmus. No facial weakness. No dysarthria. Motor: Has right sided weakness about 4-4+ but feel there is effort related. Left is 5/5. Sensation: Is decrease to touch on the right side. - Labs CBC & Chem 7: 02/21/24 08:39 02/21/24 08:39 Labs: Abnormal Lab Results - Last 24 Hours (Table) 02/20/24 02/20/24 02/21/24 Range/Units 16:32 19:58 05:44 WBC (3.8-10.6) k/uL RBC (3.80-5.40) m/uL Hgb (11.4-16.0) gm/dL Hct (34.0-46.0) % RDW (11.5-15.5) % Sodium (137-145) mmol/L Chloride (98-107) mmol/L BUN (7-17) mg/dL Creatinine (0.52-1.04) mg/dL Glucose (74-99) mg/dL POC Glucose (mg/dL) 151 H 165 H 266 H (70-110) mg/dL 02/21/24 02/21/24 02/21/24 Range/Units 08:39 08:39 11:25 WBC 15.0 H (3.8-10.6) k/uL RBC 2.87 L (3.80-5.40) m/uL Hgb 8.9 L (11.4-16.0) gm/dL Hct 28.3 L (34.0-46.0) % RDW 17.1 H (11.5-15.5) % Sodium 133 L (137-145) mmol/L Chloride 96 L (98-107) mmol/L BUN 35 H (7-17) mg/dL Creatinine 5.03 H (0.52-1.04) mg/dL Glucose 193 H (74-99) mg/dL POC Glucose (mg/dL) 248 H (70-110) mg/dL Assessment and Plan Assessment: Acute onset of numbness and weakness of right side of the body including face arm and leg. MRI Brain and there is no acute ischemic stroke. Her NIH stroke scale was 4 on arrival, but now it is 7. Patient was considered not a candidate for thrombolysis because of unknown last known well, and uncontrolled blood pressure. No LVO noted on CTA.---on examination felt there is some effort related with motor strength on right side. Cephalgia, and neck pain unclear cause. History of chronic visual disturbance due to diabetic retinopathy, vitreous hemorrhage. And had extensive workup in past. History of small right occipital and left centrum semiovalve on previous MRI (outside) in November 2023. ESRD on dialysis since 04/21/2023 Chronic Diabetes Mellitus, with his most recent A1c 6.7 on 01/17/2024. 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 No acute intracranial process identified. I personally reviewed MRI, agree with the findings. No acute ischemic stroke. * Patient concerned about viral meningitis which she had suffered from before. Patient is on Plavix, cannot do lumbar puncture at this time per Dr. Severino. He discussed holding Pavix but she refused. Also today she refused to stop Plavix or pursue with lumbar puncture. Primary has started patient on steroids and muscle relaxer. * Patient had a HAYDER performed 12/31/2023, which was normal. No need to repeat. * Patient underwent event monitoring from 01/03/2024 through 01/25/2024. The rhythm strip revealed sinus mechanism. No atrial fibrillation noted. No ventricular ectopy. * CTA of head and neck revealed no significant vascular abnormality. At least small bilateral pleural effusions are partially imaged. We will defer to IM regarding pleural effusion. * Hemoglobin A1c 6.7 on 01/17/2024, well controlled * Lipid panel cholesterol 129, LDL 24, HDL 43, triglycerides 308. Continue Lipitor 40 mg. * Patient was on aspirin 81 mg daily. Plavix 75 mg daily also initiated on this admission by Dr. Severino * Recommend psychiatry consultation as inpatient to assess underlying cause to her neurological manifestation. Recommend patient to follow-up with psychiatry as outpatient. * Patient on Protonix 40 mg daily for gastric ulcer prophylaxis. * DVT prophylaxis: Start heparin 5000 unit every 12 hour. * PT OT, speech therapy. * Telemetry monitoring * Optimize control of blood pressure, to normotensive level. The plan is discussed with her nurse. Time with Patient: Less than 30
[2024-02-21 20:11] LABS: Glucose,Whole Blood 246 mg/dL (70-110)
[2024-02-21 20:37] LABS: % Iron Saturation 29.55 (12.00-45.00)
--- NOTE | 2024-02-21 23:30 | P.PN ---
Subjective Progress Note Date: 02/21/24 HISTORY OF PRESENT ILLNESS: This is a 34-year-old female who presented to the emergency department via EMS from [facility] where she has no PCP in the outpatient setting but has been followed by Dr. Morgan while in rehab with reports of uncontrolled hypertension and volume overload. Patient also with concerns of stroke with 3 days of ongoing headache and woke up again this morning from a sleep having weakness in her right arm and leg as well as some numbness on the side of her face. Patient reports she has been having difficulty with controlling her blood pressure and was recently started on clonidine patch although reports to having some itching and feels it is related to the patch. Patient with significant past medical history of CVA, insulin-dependent diabetes, GERD, hypertension, renal disease, seizure disorder, thyroid disorder, gastroparesis, maintained on hemodialysis Wednesday although also receiving another day of dialysis weekly and patient is currently awaiting a kidney and pancreas transplant. Patient also with significant history of anxiety and depression is a former smoker and used to use large amounts of marijuana and methamphetamine. Patient currently maintained on Cleviprex drip and awaiting an ICU bed. Will discontinue Clevi prex and add hydralazine orally as well as IV as needed. Labs reviewed revealed a mildly elevated white count of 15.3, hemoglobin is 10, platelets are 445, sodium is 134 with a potassium of 4.8, BUN is 25 and creatinine is 3.97. Blood sugars were in the 2-3 100s, troponin was negative. Chest x-ray revealed mild bilateral central edema that remains present for fluid overload. CT brain showing no acute intracranial hemorrhage mass effect or midline shift noted. CT angio shows no significant vascular abnormality noted with small bilateral pleural effusions partially imaged. EKG with sinus rhythm 02/21/2024: Continue to have significant epistaxis: Continue to be on IV medication to lower her blood pressure which will be changed completely to oral medication still having significant shortness of breath require dialysis more often, blood pressure still fluctuating slight better. Patient is still having significant neuro loss consistent with worsening pressure behind both eyes along with confusion and slightly change with weakness in the right side along with mild aphasia. REVIEW OF SYSTEMS: CONSTITUTIONAL: Well-developed mild respiratory distress, wearing BiPAP. EYES: No icterus sclerae, no conjunctivitis. EARS, NOSE, MOUTH, THROAT, and FACE: No sore throat, lymphadenopathy, carotid bruits or deformity. RESPIRATORY: Positive shortness of breath cough and wheezes. CARDIOVASCULAR: Positive PND orthopnea and palpitation no angina. GASTROINTESTINAL: No Abd pain, Nausea or vomiting, no Diarrhea or constipation, No GI Bleed, no distention or masses. GENITOURINARY: Negative for Hematuria or UTI, no kidney stones. INTEGUMENT/BREAST: Negative for any muscular injury with mild osteoarthritis.. HEMATOLOGIC/LYMPHATIC: Negative for bleed or purpura. MUSCULOSKELTAL: Negative for Myalgia or arthralgia. NEURLOGICAL: No LOC, Sz or syncope, blurred vision dizziness or abnormality.. BEHAVIORAL/PSYCH: Negative. ENDOCRINE: Negative. PHYSICAL EXAMINATION: General Appearance: Alert, cooperative, slightly distressed looks older than her age. Neck HEENT: Supple, no lymphadenopathy, no thyroid enlargement, no carotid bruits. Lungs: Decreased breath sound bilaterally with fine rhonchi positive crackles and wheezes in both lung armendariz. Chest Wall: Decreased expansion with deep inspiration no tenderness and no deformity was found on exam, no costochondral pain or discomfort. Heart: Regular rate and rhythm, S1, S2 positive tachycardia , no murmur, rub or gallop. Back: Symmetric, no curvature, ROM normal, no CVA tenderness. Abdomen: Soft, non-tender, bowel sounds active all four quadrants, no masses, no organomegaly. Extremities: Extremities normal, atraumatic, no cyanosis trace edema. Pulses: 2+ and symmetric. Skin: Skin color, texture, tugor normal, no rashes or lesions. Neurologic: Alert oriented x3 cranial nerves II through XII intact, no motor deficit, no abnormal balance or gait. ASSESSMENT AND PLAN: _CVA with right-sided weakness: MRI of the brain is negative so far, still see neurology continue to watch symptoms carefully this is could be hypoperfusion from the severity of hypertension. _Acute hypertensive urgency with hypertensive encephalopathy: She is remain on Cleviprex 7 mg an hour, she has been so far been on nifedipine XL 60 mg twice a day along with torsemide, Coreg 25 mg twice a day, hydralazine 100 mg 3 times a day along with her clonidine TTS patch. Improved significantly with systolic blood pressures hardly above 140. _End-stage renal disease on hemodialysis initially was done 5 days a week and recently was decreased to 3 days a week. Continue to have ultrafiltration/hemodialysis. _ Cervical radiculopathy will continue with oral Decadron for a short course as well as continue with Mayview. Patient may benefit from a pain management consultation. _Volume overload with bilateral pleural effusions _Severe dyspnea and shortness of breath mostly from fluid overload related to her dialysis symptoms are much better lately. _Acute on chronic hypoxic respiratory failure secondary to continued volume over load, patient reports has been wearing oxygen at [facility] continuously since last admission _Type 1 diabetes: Levemir was changed to 15 units twice a day and NovoLog 7 units AC breakfast and lunch 10 AC dinner. Which patient seems to do better with it so far. _Severe iron deficiency anemia: Continue Arenesp along with iron infusion hemoglobin still running above 7 no need for transfusion. _Gastroparesis: She had her EGD last admission remain on Reglan and pantoprazole no active bleed currently. _Hyperlipidemia: Remain on atorvastatin 40 mg a day. _Hypothyroidism: Continue levothyroxine 175 mcg daily. _Seizure: With no seizure activity lately continue Depakote ER 500 mg twice a day. No seizure activity. _Chronic pain syndrome: Plain related to lower back pain and recurrent neuropath y pain. Patient can benefit probably from smaller dose of gabapentin in the meanwhile has been using hydrocodone 5/325 mg up to 4 times a day. CODE STATUS: Full code. Prognosis: Guarded. Objective - Vital Signs Vital signs: Vital Signs Temp 98.1 F 02/20/24 20:35 Pulse 79 02/21/24 03:59 Resp 16 02/21/24 03:59 BP 175/97 02/21/24 03:59 Pulse Ox 93 L 02/21/24 03:59 FiO2 Intake & Output 02/20/24 02/20/24 02/21/24 06:59 18:59 06:59 Intake Total 784 Output Total 200 Balance -200 784 Weight 74.1 kg 75.5 kg Intake: Oral 784 Output: Urine 200 Other: Voiding Method Bedside Commode Bedside Commode Bedside Commode # Voids 1 - Labs CBC & Chem 7: 02/21/24 08:39 02/21/24 08:39 Labs: Abnormal Lab Results - Last 24 Hours (Table) 02/20/24 02/20/24 02/20/24 Range/Units 06:19 11:28 16:32 POC Glucose (mg/dL) 243 H 184 H 151 H (70-110) mg/dL 02/20/24 02/21/24 Range/Units 19:58 05:44 POC Glucose (mg/dL) 165 H 266 H (70-110) mg/dL
[2024-02-22 06:14] LABS: Glucose,Whole Blood 142 mg/dL (70-110)
[2024-02-22] MEDS: cloNIDine HCL 0.1 MG TAB PO SCH (09:09)
[2024-02-22] MEDS: hydrALAZINE HCL 50 MG TAB PO SCH (09:09)
--- NOTE | 2024-02-22 09:28 | P.PN ---
Subjective Patient is seen in follow-up for end-stage renal disease. She is maintained on hemodialysis on Wednesday schedule. Tolerating dialysis well. Nosebleed resolved. Vital signs are stable. General: No acute distress. HEENT: Head exam is unremarkable. LUNGS: No audible rhonchi or wheezes. HEART: Rate and Rhythm are regular. ABDOMEN: Nontender. EXTREMITITES: No edema. Objective - Vital Signs Vital signs: Vital Signs Temp 98.5 F 02/22/24 07:54 Pulse 84 02/22/24 07:54 Resp 17 02/22/24 07:54 BP 173/103 02/22/24 09:08 Pulse Ox 99 02/22/24 07:54 FiO2 Intake & Output 02/21/24 02/22/24 02/22/24 18:59 06:59 18:59 Intake Total 1662 620 Output Total 200 3500 Balance 1462 -2880 Weight 74.3 kg Intake: Oral 1662 120 Hemodialysis 500 Output: Urine 200 Hemodialysis 3500 Other: Voiding Method Bedside Commode Bedside Commode Bedside Commode # Voids 1 - Labs CBC & Chem 7: 02/21/24 08:39 02/21/24 08:39 Labs: Abnormal Lab Results - Last 24 Hours (Table) 02/21/24 02/21/24 02/21/24 Range/Units 08:39 08:39 08:39 WBC 15.0 H (3.8-10.6) k/uL RBC 2.87 L (3.80-5.40) m/uL Hgb 8.9 L (11.4-16.0) gm/dL Hct 28.3 L (34.0-46.0) % RDW 17.1 H (11.5-15.5) % Sodium 133 L (137-145) mmol/L Chloride 96 L (98-107) mmol/L BUN 35 H (7-17) mg/dL Creatinine 5.03 H (0.52-1.04) mg/dL Glucose 193 H (74-99) mg/dL POC Glucose (mg/dL) (70-110) mg/dL Ferritin 352.0 H (10.0-291.0) ng/mL 02/21/24 02/21/24 02/21/24 Range/Units 11:25 16:08 20:10 WBC (3.8-10.6) k/uL RBC (3.80-5.40) m/uL Hgb (11.4-16.0) gm/dL Hct (34.0-46.0) % RDW (11.5-15.5) % Sodium (137-145) mmol/L Chloride (98-107) mmol/L BUN (7-17) mg/dL Creatinine (0.52-1.04) mg/dL Glucose (74-99) mg/dL POC Glucose (mg/dL) 248 H 193 H 246 H (70-110) mg/dL Ferritin (10.0-291.0) ng/mL 02/22/24 Range/Units 06:12 WBC (3.8-10.6) k/uL RBC (3.80-5.40) m/uL Hgb (11.4-16.0) gm/dL Hct (34.0-46.0) % RDW (11.5-15.5) % Sodium (137-145) mmol/L Chloride (98-107) mmol/L BUN (7-17) mg/dL Creatinine (0.52-1.04) mg/dL Glucose (74-99) mg/dL POC Glucose (mg/dL) 142 H (70-110) mg/dL Ferritin (10.0-291.0) ng/mL Assessment and Plan Plan: Assessment: 1. End-stage renal disease maintained on hemodialysis on Wednesday schedule. 2. Hypertension with chronic kidney disease. 3. Diabetes mellitus. 4. Anemia of chronic kidney disease. On Aranesp. Iron replete. 5. Chronic kidney disease mineral bone disease maintained on Renvela. 6. Volume overload. Improved with ultrafiltration. 7. Right-sided weakness. Improved. CT of the brain and CTA negative. 8. Diabetic gastroparesis. Plan: Currently seen while undergoing hemodialysis. Nosebleed resolved post IV DDAVP. Stopped Fleet enemas. Has not received any blood pressure meds so far today. To be given now even if patient scheduled for dialysis or receiving HD.
[2024-02-22 11:37] LABS: Glucose,Whole Blood 115 mg/dL (70-110)
--- NOTE | 2024-02-22 12:32 | CT ---
EXAMINATION TYPE: CT sinus wo con DATE OF EXAM: 02/22/2024 COMPARISON: 07/14/2022 HISTORY: LEGER, Retention and infection CT DLP: 413.5 mGycm CONTRAST: 0 mL of Isovue 300 The paranasal sinuses are examined in the axial plane at 2 mm thick sections. Reconstructed images i n the coronal plane were obtained. There is dental amalgam scatter artifact The maxillary sinuses are clear. The ethmoid air cells are clear. The sphenoid sinuses are clear. The frontal sinuses are clear. The septum is evaluated. There is septal deviation to the left. The ostiomeatal units are patent. Maxillary spine is intact. Nasal bones are intact. Greater wings of the sphenoid are normal. IMPRESSION: 1. No suspicious acute changes paranasal sinus CT. 2. Left anterior septal deviation.
--- NOTE | 2024-02-22 13:58 | P.PN ---
Subjective Progress Note Date: 02/22/24 This is a 34-year-old female with a history of multiple medical problems, who was seen in the emergency department, trauma room #1. The patient was admitted with a diagnosis of hypertensive emergency. Her blood pressure was well over 200 systolic. The patient was started on Cleviprex, and is currently on Cleviprex at 7 mg an hour. She is getting oxygen at 3 L by nasal cannula. CT of the brain was negative for anything acute, and angiography CT, was also negative. The patient was brought in from [facility]. The patient was recently in the hospital, on February 04, for fluid overload, hypoxemic respiratory failure, end-stage renal disease, hyperkalemia, anemia of chronic disease, diabetes, recent CVA with right-sided weakness, and optic neuritis. The patient is very lethargic today in the emergency department. White count 15.3, hemoglobin 10, hematocrit 30.5, platelet count 445,000. Sodium 134, potassium 4.8, chloride 93, CO2 34, BUN 25, and creatinine 3.97. Glucose is 287. ALT is 40. Troponin less than 0.012. Albumin 3.8. Chest x-ray shows fluid overload. Progress note dated February 19, 2024. This is a 34-year-old female with a history of end-stage renal disease, who was seen in the emergency department yesterday, with hypertensive emergency, and hypertensive encephalopathy. In the emergency department, the patient was on Cleviprex for blood pressure support. Currently, she is seen in room 365. She is feeling better. She is on 3 L of oxygen. She is not receiving any IV fluids. Obviously, because she is on the floor, she is no longer on Cleviprex. White count is 13.9, hemoglobin 9, hematocrit 26.6, platelet count 351,000. Sodium 130, potassium 5, chloride 73, CO2 28, BUN 31, and creatinine 3.98. Glucose is 263. Albumin is 3.1. Progress note dated February 20, 2024. The patient is seen today in room 365. She is currently on room air. She is not receiving any IV fluids. Unfortunately, the patient developed some epistaxis, and has been having issues with bleeding from the left nostril, since last night. Other than that, she is doing reasonably well. No new labs today other than a glucose of 243. On today's evaluation of 02/21/2024, the patient is being seen for a follow-up. The patient is on room air oxygen. The active issue for now remains elevated blood pressure. Earlier this morning, the patient's blood pressure was as high as 181/100. Clonidine was added to the regimen and the patient is currently on clonidine 0.2 mg p.o. 3 times daily. She is also on nifedipine 60 mg p.o. twice daily Imdur 30 mg p.o. daily hydralazine 100 mg p.o. 3 times daily and Coreg 25 mg p.o. twice a day. Noted blood pressure subsequently improved. She is having episodes of tach epistaxis. The nostril is currently packed and the patient is awaiting ENT evaluation. Today is a dialysis day for this patient. The white cell count of 15 with a hemoglobin 8.9 and a platelet count of 315. BUN is 35 with a creatinine of 5 and a sodium levels at 133. The patient is currently on room air oxygen with a pulse ox of 95%. No altered mentation at this point in time and she is fully alert and awake and communicating. On 02/22/2024, the patient is being seen for a follow-up. Blood pressure remains elevated and modification of blood pressure medication was done and the patient's clonidine dose has been increased 2.3 mg p.o. 3 times daily and this is in combination with Coreg 25 mg p.o. twice a day and the patient is also on hydralazine 150 mg p.o. 3 times daily and Procardia 60 mg p.o. twice a day. The patient has no active epistaxis at this point in time. Most recent BP is down to 163/94. She was on room air oxygen with a pulse ox of 97%. During her dialysis, patient was placed on oxygen. No encephalopathy. She is communicating. No headache. No focal neurological deficit at this point in time. No chest pain. Objective - Vital Signs Vital signs: Vital Signs Temp 98.5 F 02/22/24 07:54 Pulse 84 02/22/24 07:54 Resp 17 02/22/24 07:54 BP 173/103 02/22/24 09:08 Pulse Ox 99 02/22/24 07:54 FiO2 Intake & Output 02/21/24 02/22/24 02/22/24 18:59 06:59 18:59 Intake Total 1662 620 Output Total 200 3500 Balance 1462 -2880 Weight 74.3 kg Intake: Oral 1662 120 Hemodialysis 500 Output: Urine 200 Hemodialysis 3500 Other: Voiding Method Bedside Commode Bedside Commode Bedside Commode # Voids 1 - Exam No acute distress, awake and alert, currently on room air. The patient is nostril is packed due to recurrent epistaxis. No signs of any respiratory distress at this point in time. HEENT examination is grossly unremarkable. Mucous membranes are moist. No oral lesions. Bleeding from left nostril. Most of the blood is dried, and dark. Neck supple. Full range of motion. No adenopathy thyromegaly or neck vein distention. Cardiovascular examination reveals regular rhythm rate. S1-S2 normal. No S3 or S4. No discernible murmur noted. Lungs reveal diffuse crackles. Breath sounds are equal bilaterally. No rhonchi. No wheezes. Breath Sounds Are Improved. Breath sounds equal bilaterally. Abdomen soft bowel sounds are heard. No masses or tenderness. Extremities are intact. No cyanosis clubbing or edema. Skin is without rash or lesion. Neurologic examination reveals the patient to be more awake and alert. - Labs CBC & Chem 7: 02/21/24 08:39 02/21/24 08:39 Labs: Abnormal Lab Results - Last 24 Hours (Table) 02/21/24 02/21/24 02/21/24 Range/Units 08:39 11:25 16:08 POC Glucose (mg/dL) 248 H 193 H (70-110) mg/dL Ferritin 352.0 H (10.0-291.0) ng/mL 02/21/24 02/22/24 Range/Units 20:10 06:12 POC Glucose (mg/dL) 246 H 142 H (70-110) mg/dL Ferritin (10.0-291.0) ng/mL Assessment and Plan Plan: Acute hypertensive urgency, with hypertensive encephalopathy, and mental status changes. Blood pressure remains elevated although it is under better control for now. The patient is on a combination of antihypertensive medication. Close BP monitoring and adjustment of the blood pressure medication is being done at this point in time. Recent admission, in January 2024, for hypoxemic respiratory failure, and fluid overload. History of end-stage renal disease, currently on hemodialysis. Anemia of chronic disease. Diabetes mellitus. Recent CVA with right-sided weakness. History of optic neuritis. Epistaxis, probably addicted to her poorly controlled blood pressure. Plan: Continue blood pressure management Clonidine point 3 mg 3 times daily Procardia 60 mg p.o. twice daily Coreg 25 mg p.o. twice daily Hydralazine 150 mg 3 times daily Blood pressure medication adjustments were done Patient undergoing periodic dialysis per nephrology No signs of encephalopathy The nasal packing is removed, no active epistaxis at this point in time.
[2024-02-22 16:17] LABS: Glucose,Whole Blood 134 mg/dL (70-110)
[2024-02-22 20:12] LABS: Glucose,Whole Blood 303 mg/dL (70-110)
[2024-02-23] MEDS: BACLOFEN 10 MG TAB PO PRN (04:09)
--- NOTE | 2024-02-23 04:59 | P.PN ---
Subjective Progress Note Date: 02/22/24 HISTORY OF PRESENT ILLNESS: This is a 34-year-old female who presented to the emergency department via EMS from [facility] where she has no PCP in the outpatient setting but has been followed by Dr. Morgan while in rehab with reports of uncontrolled hypertension and volume overload. Patient also with concerns of stroke with 3 days of ongoing headache and woke up again this morning from a sleep having weakness in her right arm and leg as well as some numbness on the side of her face. Patient reports she has been having difficulty with controlling her blood pressure and was recently started on clonidine patch although reports to having some itching and feels it is related to the patch. Patient with significant past medical history of CVA, insulin-dependent diabetes, GERD, hypertension, renal disease, seizure disorder, thyroid disorder, gastroparesis, maintained on hemodialysis Wednesday although also receiving another day of dialysis weekly and patient is currently awaiting a kidney and pancreas transplant. Patient also with significant history of anxiety and depression is a former smoker and used to use large amounts of marijuana and methamphetamine. Patient currently maintained on Cleviprex drip and awaiting an ICU bed. Will discontinue Clevi prex and add hydralazine orally as well as IV as needed. Labs reviewed revealed a mildly elevated white count of 15.3, hemoglobin is 10, platelets are 445, sodium is 134 with a potassium of 4.8, BUN is 25 and creatinine is 3.97. Blood sugars were in the 2-3 100s, troponin was negative. Chest x-ray revealed mild bilateral central edema that remains present for fluid overload. CT brain showing no acute intracranial hemorrhage mass effect or midline shift noted. CT angio shows no significant vascular abnormality noted with small bilateral pleural effusions partially imaged. EKG with sinus rhythm 02/21/2024: Continue to have significant epistaxis: Continue to be on IV medication to lower her blood pressure which will be changed completely to oral medication still having significant shortness of breath require dialysis more often, blood pressure still fluctuating slight better. Patient is still having significant neuro loss consistent with worsening pressure behind both eyes along with confusion and slightly change with weakness in the right side along with mild aphasia. 02/22/2024: Her nosebleed had stopped completely after receiving 1 dose of IV DDAVP per nephrology. Her right-sided weakness has resolved completely. Urgent hypertension continue to be a problem patient remain of clonidine patch but will titrate clonidine up to 2.3 mg 3 times a day, hydralazine up to 160 mg 3 times a day, also will switch her beta-stephanie by tomorrow from Coreg to labetalol 200 mg 3 times a day. If that does not settle the blood pressure seen by patient has done very well with the clonidine patch will put her back on clonidine patch as of tomorrow. Continue dialysis, patient has slightly more congestion with her sinus behind her eyes but exclude possibility of any sinus infection sinus CAT scan will be done. Also repeat thyroid testing. Blood sugar is much better for daytime but nighttime patient does so many snack because of blood pressure to be quite bit high after supper. Neurology standpoint had review her testing including MRI of the brain without contrast did not show any sign of stroke or ischemic change, even offering patient to go for lumbar puncture She refused to go off Plavix and prepare for that purpose, transesophageal echocardiogram and universal branch consultant were done early, CT of the neck showed no significant blockage, patient A1c and lipid panel has been done recently, with everything else neurology has recommended psychiatry consultation to exclude out possibility of underlying psych problem probably to follow-up as an outpatient and prepare for her transplant as she become closer to in the future. Patient improving to some degree hoping to be able to let her probably go back to [facility] in the next 24 hours. REVIEW OF SYSTEMS: CONSTITUTIONAL: Well-developed mild respiratory distress, wearing BiPAP. EYES: No icterus sclerae, no conjunctivitis. EARS, NOSE, MOUTH, THROAT, and FACE: No sore throat, lymphadenopathy, carotid bruits or deformity. RESPIRATORY: Positive shortness of breath cough and wheezes. CARDIOVASCULAR: Positive PND orthopnea and palpitation no angina. GASTROINTESTINAL: No Abd pain, Nausea or vomiting, no Diarrhea or constipation, No GI Bleed, no distention or masses. GENITOURINARY: Negative for Hematuria or UTI, no kidney stones. INTEGUMENT/BREAST: Negative for any muscular injury with mild osteoarthritis.. HEMATOLOGIC/LYMPHATIC: Negative for bleed or purpura. MUSCULOSKELTAL: Negative for Myalgia or arthralgia. NEURLOGICAL: No LOC, Sz or syncope, blurred vision dizziness or abnormality.. BEHAVIORAL/PSYCH: Negative. ENDOCRINE: Negative. PHYSICAL EXAMINATION: General Appearance: Alert, cooperative, slightly distressed looks older than her age. Neck HEENT: Supple, no lymphadenopathy, no thyroid enlargement, no carotid bruits. Lungs: Decreased breath sound bilaterally with fine rhonchi positive crackles and wheezes in both lung armendariz. Chest Wall: Decreased expansion with deep inspiration no tenderness and no deformity was found on exam, no costochondral pain or discomfort. Heart: Regular rate and rhythm, S1, S2 positive tachycardia , no murmur, rub or gallop. Back: Symmetric, no curvature, ROM normal, no CVA tenderness. Abdomen: Soft, non-tender, bowel sounds active all four quadrants, no masses, no organomegaly. Extremities: Extremities normal, atraumatic, no cyanosis trace edema. Pulses: 2+ and symmetric. Skin: Skin color, texture, tugor normal, no rashes or lesions. Neurologic: Alert oriented x3 cranial nerves II through XII intact, no motor deficit, no abnormal balance or gait. ASSESSMENT AND PLAN: _CVA with right-sided weakness: MRI of the brain is negative so far, neurology has finished urine mastication believe with review of her MRI there is no evidence for stroke or ischemic change. _Acute hypertensive urgency with hypertensive encephalopathy: She is off Clev iprex 7 mg and will continue nifedipine XL 60 mg twice a day along with torsemide, Coreg 25 mg twice a day, hydralazine 100 mg 3 times a day along with her clonidine point 3 mg 3 times a day and as a neck step consider probably to go back on the clonidine patch and possible to start labetalol instead of Coreg. Improved significantly with systolic blood pressures hardly above 140. _End-stage renal disease on hemodialysis initially was done 5 days a week and recently was decreased to 3 days a week. Continue to have ultrafiltration/hemodialysis. _ Cervical radiculopathy will continue with oral Decadron for a short course as well as continue with [place]. Symptoms are slightly better. _Volume overload with bilateral pleural effusions: Most likely diastolic congestive heart failure from dialysis patient is doing dialysis regularly 4 days a week currently. _Severe dyspnea and shortness of breath mostly from fluid overload related to her dialysis symptoms are much better lately. _Acute on chronic hypoxic respiratory failure secondary to continued volume overload, patient reports has been wearing oxygen at [facility] continuously since last admission _Type 1 diabetes: Levemir was changed to 15 units twice a day and NovoLog 7 units AC breakfast and lunch 10 AC dinner. Blood sugar still fluctuating slightly but worsening at nighttime from her snack mostly. _Severe iron deficiency anemia: Continue Arenesp along with iron infusion hemoglobin still running above 7 no need for transfusion. _Gastroparesis: She is doing slightly better with the combination of pantoprazole and Reglan. _Hyperlipidemia: Remain on atorvastatin 40 mg a day. _Hypothyroidism: Continue levothyroxine 175 mcg daily. _Seizure: With no seizure activity lately continue Depakote ER 500 mg twice a day. _Chronic pain syndrome: Plain related to lower back pain and recurrent neuropathy pain. Patient can benefit probably from smaller dose of gabapentin her hydrocodone was increased to 7.5 mg. CODE STATUS: Full code. Prognosis: Guarded. Discharge planning: Possibly in the next 48 hours. Objective - Vital Signs Vital signs: Vital Signs Temp 98.3 F 02/21/24 23:42 Pulse 84 02/22/24 04:00 Resp 18 02/22/24 04:00 BP 178/98 02/22/24 04:00 Pulse Ox 93 L 02/22/24 04:00 FiO2 Intake & Output 02/21/24 02/21/24 02/22/24 06:59 18:59 06:59 Intake Total 1662 500 Output Total 200 3500 Balance 1462 -3000 Weight 75.5 kg Intake: Oral 1662 Hemodialysis 500 Output: Urine 200 Hemodialysis 3500 Other: Voiding Method Bedside Commode Bedside Commode Bedside Commode # Voids 1 - Labs CBC & Chem 7: 02/21/24 08:39 02/21/24 08:39 Labs: Abnormal Lab Results - Last 24 Hours (Table) 02/21/24 02/21/24 02/21/24 Range/Units 08:39 08:39 08:39 WBC 15.0 H (3.8-10.6) k/uL RBC 2.87 L (3.80-5.40) m/uL Hgb 8.9 L (11.4-16.0) gm/dL Hct 28.3 L (34.0-46.0) % RDW 17.1 H (11.5-15.5) % Sodium 133 L (137-145) mmol/L Chloride 96 L (98-107) mmol/L BUN 35 H (7-17) mg/dL Creatinine 5.03 H (0.52-1.04) mg/dL Glucose 193 H (74-99) mg/dL POC Glucose (mg/dL) (70-110) mg/dL Ferritin 352.0 H (10.0-291.0) ng/mL 02/21/24 02/21/24 02/21/24 Range/Units 11:25 16:08 20:10 WBC (3.8-10.6) k/uL RBC (3.80-5.40) m/uL Hgb (11.4-16.0) gm/dL Hct (34.0-46.0) % RDW (11.5-15.5) % Sodium (137-145) mmol/L Chloride (98-107) mmol/L BUN (7-17) mg/dL Creatinine (0.52-1.04) mg/dL Glucose (74-99) mg/dL POC Glucose (mg/dL) 248 H 193 H 246 H (70-110) mg/dL Ferritin (10.0-291.0) ng/mL 02/22/24 Range/Units 06:12 WBC (3.8-10.6) k/uL RBC (3.80-5.40) m/uL Hgb (11.4-16.0) gm/dL Hct (34.0-46.0) % RDW (11.5-15.5) % Sodium (137-145) mmol/L Chloride (98-107) mmol/L BUN (7-17) mg/dL Creatinine (0.52-1.04) mg/dL Glucose (74-99) mg/dL POC Glucose (mg/dL) 142 H (70-110) mg/dL Ferritin (10.0-291.0) ng/mL
[2024-02-23 06:05] LABS: Glucose,Whole Blood 134 mg/dL (70-110)
[2024-02-23] MEDS: LABETALOL 200 MG TAB PO SCH (08:54)
--- NOTE | 2024-02-23 10:41 | P.PN ---
Subjective Patient is seen in follow-up for end-stage renal disease. She is maintained on hemodialysis on Wednesday schedule. No problems with dialysis yesterday. Tolerated 3.5 L ultrafiltration. Vital signs are stable. General: No acute distress. HEENT: Head exam is unremarkable. LUNGS: No audible rhonchi or wheezes. HEART: Rate and Rhythm are regular. ABDOMEN: Nontender. EXTREMITITES: No edema. Objective - Vital Signs Vital signs: Vital Signs Temp 98.2 F 02/23/24 08:50 Pulse 75 02/23/24 08:50 Resp 18 02/23/24 08:50 BP 189/102 02/23/24 08:50 Pulse Ox 99 02/23/24 08:50 FiO2 Intake & Output 02/22/24 02/23/24 02/23/24 18:59 06:59 18:59 Intake Total 2156 444 240 Output Total 3900 Balance -1744 444 240 Weight 73.1 kg Intake: Oral 1756 444 240 Hemodialysis 400 Output: Hemodialysis 3900 Other: Voiding Method Bedside Commode Bedside Commode Bedside Commode # Voids 1 0 # Bowel Movements 1 - Labs CBC & Chem 7: 02/21/24 08:39 02/21/24 08:39 Labs: Abnormal Lab Results - Last 24 Hours (Table) 02/22/24 02/22/24 02/22/24 Range/Units 11:36 16:15 20:07 POC Glucose (mg/dL) 115 H 134 H 303 H (70-110) mg/dL 02/23/24 Range/Units 06:03 POC Glucose (mg/dL) 134 H (70-110) mg/dL Assessment and Plan Plan: Assessment: 1. End-stage renal disease maintained on hemodialysis on Wednesday schedule. 2. Hypertension with chronic kidney disease. 3. Diabetes mellitus. 4. Anemia of chronic kidney disease. On Aranesp. Iron replete. 5. Chronic kidney disease mineral bone disease maintained on Renvela. 6. Volume overload. Improved with ultrafiltration. 7. Right-sided weakness. Improved. CT of the brain and CTA negative. 8. Diabetic gastroparesis. Plan: Hemodialysis tomorrow. Stopped Fleet enemas. Add low-dose minoxidil.
--- NOTE | 2024-02-23 11:14 | P.PN ---
Subjective Progress Note Date: 02/23/24 This is a 34-year-old female with a history of multiple medical problems, who was seen in the emergency department, trauma room #1. The patient was admitted with a diagnosis of hypertensive emergency. Her blood pressure was well over 200 systolic. The patient was started on Cleviprex, and is currently on Cleviprex at 7 mg an hour. She is getting oxygen at 3 L by nasal cannula. CT of the brain was negative for anything acute, and angiography CT, was also negative. The patient was brought in from [facility]. The patient was recently in the hospital, on February 04, for fluid overload, hypoxemic respiratory failure, end-stage renal disease, hyperkalemia, anemia of chronic disease, diabetes, recent CVA with right-sided weakness, and optic neuritis. The patient is very lethargic today in the emergency department. White count 15.3, hemoglobin 10, hematocrit 30.5, platelet count 445,000. Sodium 134, potassium 4.8, chloride 93, CO2 34, BUN 25, and creatinine 3.97. Glucose is 287. ALT is 40. Troponin less than 0.012. Albumin 3.8. Chest x-ray shows fluid overload. Progress note dated February 19, 2024. This is a 34-year-old female with a history of end-stage renal disease, who was seen in the emergency department yesterday, with hypertensive emergency, and hypertensive encephalopathy. In the emergency department, the patient was on Cleviprex for blood pressure support. Currently, she is seen in room 365. She is feeling better. She is on 3 L of oxygen. She is not receiving any IV fluids. Obviously, because she is on the floor, she is no longer on Cleviprex. White count is 13.9, hemoglobin 9, hematocrit 26.6, platelet count 351,000. Sodium 130, potassium 5, chloride 73, CO2 28, BUN 31, and creatinine 3.98. Glucose is 263. Albumin is 3.1. Progress note dated February 20, 2024. The patient is seen today in room 365. She is currently on room air. She is not receiving any IV fluids. Unfortunately, the patient developed some epistaxis, and has been having issues with bleeding from the left nostril, since last night. Other than that, she is doing reasonably well. No new labs today other than a glucose of 243. On today's evaluation of 02/21/2024, the patient is being seen for a follow-up. The patient is on room air oxygen. The active issue for now remains elevated blood pressure. Earlier this morning, the patient's blood pressure was as high as 181/100. Clonidine was added to the regimen and the patient is currently on clonidine 0.2 mg p.o. 3 times daily. She is also on nifedipine 60 mg p.o. twice daily Imdur 30 mg p.o. daily hydralazine 100 mg p.o. 3 times daily and Coreg 25 mg p.o. twice a day. Noted blood pressure subsequently improved. She is having episodes of tach epistaxis. The nostril is currently packed and the patient is awaiting ENT evaluation. Today is a dialysis day for this patient. The white cell count of 15 with a hemoglobin 8.9 and a platelet count of 315. BUN is 35 with a creatinine of 5 and a sodium levels at 133. The patient is currently on room air oxygen with a pulse ox of 95%. No altered mentation at this point in time and she is fully alert and awake and communicating. On 02/22/2024, the patient is being seen for a follow-up. Blood pressure remains elevated and modification of blood pressure medication was done and the patient's clonidine dose has been increased 2.3 mg p.o. 3 times daily and this is in combination with Coreg 25 mg p.o. twice a day and the patient is also on hydralazine 150 mg p.o. 3 times daily and Procardia 60 mg p.o. twice a day. The patient has no active epistaxis at this point in time. Most recent BP is down to 163/94. She was on room air oxygen with a pulse ox of 97%. During her dialysis, patient was placed on oxygen. No encephalopathy. She is communicating. No headache. No focal neurological deficit at this point in time. No chest pain. On today's evaluation of 02/23/2024, the patient is being seen for a follow-up. BP is under better control on today's evaluation. Her most recent BP is around 165/95. Blood pressure is being monitored very closely. She underwent hemodialysis yesterday. No plans for hemodialysis today. No altered mentation. No chest pain. No shortness of breath. Her current blood pressure Medication coverage includes clonidine 0.3 mg p.o. 3 times daily, hydralazine 150 mg p.o. 3 times daily, labetalol 200 mg p.o. twice daily, minoxidil 2.5 mg p.o. daily, and Procardia 60 mg p.o. twice a day. Objective - Vital Signs Vital signs: Vital Signs Temp 98.2 F 02/23/24 04:00 Pulse 79 02/23/24 04:00 Resp 16 02/23/24 04:00 BP 165/95 02/23/24 04:00 Pulse Ox 95 02/23/24 04:00 FiO2 Intake & Output 02/22/24 02/23/24 02/23/24 18:59 06:59 18:59 Intake Total 2156 444 240 Output Total 3900 Balance -1744 444 240 Weight 73.1 kg Intake: Oral 1756 444 240 Hemodialysis 400 Output: Hemodialysis 3900 Other: Voiding Method Bedside Commode Bedside Commode # Voids 1 0 # Bowel Movements 1 - Exam No acute distress, awake and alert, currently on room air. The patient is nostril is packed due to recurrent epistaxis. No signs of any respiratory distress at this point in time. HEENT examination is grossly unremarkable. Mucous membranes are moist. No oral lesions. Bleeding from left nostril. Most of the blood is dried, and dark. Neck supple. Full range of motion. No adenopathy thyromegaly or neck vein distention. Cardiovascular examination reveals regular rhythm rate. S1-S2 normal. No S3 or S4. No discernible murmur noted. Lungs reveal diffuse crackles. Breath sounds are equal bilaterally. No rhonchi. No wheezes. Breath Sounds Are Improved. Breath sounds equal bilaterally. Abdomen soft bowel sounds are heard. No masses or tenderness. Extremities are intact. No cyanosis clubbing or edema. Skin is without rash or lesion. Neurologic examination reveals the patient to be more awake and alert. - Labs CBC & Chem 7: 02/21/24 08:39 02/21/24 08:39 Labs: Abnormal Lab Results - Last 24 Hours (Table) 02/22/24 02/22/24 02/22/24 Range/Units 11:36 16:15 20:07 POC Glucose (mg/dL) 115 H 134 H 303 H (70-110) mg/dL 02/23/24 Range/Units 06:03 POC Glucose (mg/dL) 134 H (70-110) mg/dL Assessment and Plan Plan: Acute hypertensive urgency, with hypertensive encephalopathy, and mental status changes. Blood pressure remains elevated although it is under better control for now. The patient is on a combination of antihypertensive medication. Close BP monitoring and adjustment of the blood pressure medication is being done at this point in time. Blood pressure medication is still being adjusted and the patient is under better control although she is still having episodes of increased blood pressure. No hypertensive encephalopathy. No altered mentation at this point in time. Recent admission, in January 2024, for hypoxemic respiratory failure, and fluid overload. History of end-stage renal disease, currently on hemodialysis. Anemia of chronic disease. Diabetes mellitus. Recent CVA with right-sided weakness. History of optic neuritis. Epistaxis, probably addicted to her poorly controlled blood pressure. Plan: Continue blood pressure management Labetalol 200 mg p.o. twice a day Clonidine point 3 mg 3 times daily Procardia 60 mg p.o. twice daily Coreg 25 mg p.o. twice daily Hydralazine 150 mg 3 times daily Minoxidil 2.5 mg p.o. daily Patient undergoing periodic dialysis per nephrology, last hemodialysis session was done yesterday. No signs of encephalopathy The nasal packing is removed, no active epistaxis at this point in time.
[2024-02-23 11:39] VITALS: BMI 24.5
[2024-02-23 11:44] LABS: Glucose,Whole Blood 262 mg/dL (70-110)
[2024-02-23] MEDS: minoxidiL 2.5 MG TAB PO SCH (12:12)
--- NOTE | 2024-02-23 14:30 | P.CN ---
Psychiatric Consult - . Consult date: 02/23/24 Consult:: 02/23/24 13:27 IDENTIFYING DATA: This patient is a 34 yo female, currently staying at [facility], has 1 kid and is currently REASON FOR REFERRAL: Psychiatry was consulted for severe depression and conversion disorder HISTORY OF PRESENT ILLNESS: The patient presented to the hospital initially on 02/17, she has a significant psychiatric history for depression and anxiety and polysubstance abuse history. Patient has end-stage renal disease, currently on hemodialysis. Patient also has a history of stroke, right eye blindness. She was presenting with headaches, was in hypertensive emergency when she presented. CT scan did not show any changes. Patient was seen today sitting at the side of her bed on her phone, she was agreeable to speak to sign writer hand. She presented as somewhat depressed, claiming that she is feeling more depressed lately. Claims that she is also having anxiety. States that she was having hypertension when she came in and has been admitted several times in the past. States that she was also "fluid overloaded". She states that her depression has been worsening as she has been getting more medical issues. Claims that she has not seen her daughter much due to being sick and in the hospital. Claims that she has a "fear of not watching her grow up". States that she used to abuse methamphetamine and other recreational substances however has been sober now for about 1 and half months. Claims that her sleep has been poor, appetite has been on and off. At this time patient denies any suicidal or homical ideations, intent or plan. Patient denies any auditory, visual hallucinations and denies any paranoia or delusions. Patients admits to using cannabis and cigarettes however claims that she quit using these in November. PAST PSYCHIATRIC HISTORY: Patient has a a history of depression, anxiety, multiple medical comorbidities. Patient is currently on Xanax as needed, Depakote 500 mg twice daily and Zoloft 200 mg daily for mood/anxiety. Claims she was last psychiatrically admitted to the mental health unit when she was 19 years old. Patient denies any psychiatric outpatient follow-up. Claims that she attempted to overdose on insulin at the age of 19 Past Medical History: Diabetes Mellitus, GERD/Reflux, Hypertension, Renal Disease, Seizure Disorder, Thyroid Disorder Additional Past Medical History / Comment(s): Neuropathy, last seizure 2020, gastroparesis, headaches with dialysis, states "fast heart rate" since giving ., receives Hemodialysis Wednesday- and Saturdays at [facility]., right chest hemodialysis catheter., severe HTN. patient awaiting Kidney and Pancrease Transplant. , states sometimes she has had stroke -like symptoms but no stroke., hx of c-diff 2013. History of Any Multi-Drug Resistant Organisms: None Reported Date of last positivie culture/infection: 2013 MDRO Source:: stool Past Surgical History: Adenoidectomy, Section, Cholecystectomy, Orthopedic Surgery, Tonsillectomy Additional Past Surgical History / Comment(s): 2 KNEE SCOPES, EAR TUBES, additional left knee surgery related to fracture, new port a cath jul 29, eye surgeries for diabetic retinopathy. Past Anesthesia/Blood Transfusion Reactions: Previous Problems w/ Anesthesia Additional Past Anesthesia/Blood Transfusion Reaction / Comment(s): confusion Past Psychological History: Anxiety, Depression Smoking Status: Former smoker Past Alcohol Use History: None Reported Past Drug Use History: Marijuana, Methamphetamine ALLERGIES: as per EMR. CHEMICAL DEPENDENCY HISTORY: as per HPI. FAMILY PSYCHIATRIC/SUBSTANCE USE HISTORY: Denies SOCIAL HISTORY: Patient was born and raised in [place] and then moved to [place]. States that she completed up to ninth grade in school. 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 States that she has 1 daughter, she is is currently , she lives at [facility]. She claims that she went to senior care in the past at the age of 19 for retail fraud. MENTAL STATUS EXAM: General Appearance: Patient appears to be have several tattoos, stated age is alert, attempts to be cooperative. Patient appears to have fair hygiene and grooming wearing hospital gown with poor eye contact. Behavior: Patient is calmly l sitting in the chair without any agitated behavior. Poor eye contact Speech: Patient's speech is fluent and nonpressured. Soft tone Mood/Affect: Patient reports their mood is "depressed and anxious", affect is congruent and constricted Suicidality/Homicidality: Patient denies having any suicidal or homicidal ideation intent or plan. Perceptions: Patient denies any visual hallucinations and denies any auditory hallucinations Though content/process: There is no evidence of any delusional thought content and thought process is linear and goal-directed. Focused on her anxiety and mood Memory and concentration: AOX3, grossly intact for the purposes of this session. Can spell "WORLD" backwards Judgment and insight: Fair IMPRESSIONS: Major depressive disorder, mild Anxiety disorder unspecified rule out PTSD PLAN: -At this time patient DOES NOT meet criteria for inpatient psychiatric admission. -Would recommend the following medication changes/additions: Mild increase to Xanax to 0.5 mg twice daily as needed for anxiety, will likely hold off on increasing further due to increased likelihood of tolerance/abuse. Continue with Zoloft and Depakote as prescribed. Added Abilify, will start with 2.5 mg increased to 5 mg tomorrow for mood adjunct. Trazodone 50 mg nightly for mood/insomnia -childcare worker to provide patient with outpatient mental health/psychiatry resources for appropriate follow up upon discharge -Continue your medication management for underlying medical comorbidities -Communicated plan to patient's nurse -Will continue to follow along if needed. -Please contact with any questions. 02/23/24 14:22 02/23/24 14:23
[2024-02-23] MEDS: ARIPiprazole 5 MG TAB PO ONE (15:56)
--- NOTE | 2024-02-23 16:25 | P.PN ---
Subjective Progress Note Date: 02/23/24 I am following-up with patient and she states she is about the same. Continues to have headache and feels Morphine and Fioricet is helping. I was notified by nurse that has stopped Morphine and patient is not happy with primary attending. Objective - Vital Signs Vital signs: Vital Signs Temp 97.7 F 02/23/24 12:10 Pulse 80 02/23/24 12:10 Resp 16 02/23/24 12:10 BP 122/63 02/23/24 12:10 Pulse Ox 98 02/23/24 12:10 FiO2 Intake & Output 02/22/24 02/23/24 02/23/24 18:59 06:59 18:59 Intake Total 2156 444 240 Output Total 3900 Balance -1744 444 240 Weight 73.1 kg 73.1 kg Intake: Oral 1756 444 240 Hemodialysis 400 Output: Hemodialysis 3900 Other: Voiding Method Bedside Commode Bedside Commode Bedside Commode # Voids 1 0 # Bowel Movements 1 - Exam General: Lying in bed and is not in acute distress. Neuro: The patient is awake, alert, oriented to self, place and time. Is following simple commands. Pupils are round, equal and reactive to light. Visual armendariz are full to confrontation. EOM intact and no nystagmus. No facial weakness. No dysarthria. Motor: Has right sided weakness about 4-4+ but feel there is effort related. Left is 5/5. Sensation: Is decrease to touch on the right side. - Labs CBC & Chem 7: 02/21/24 08:39 02/21/24 08:39 Labs: Abnormal Lab Results - Last 24 Hours (Table) 02/22/24 02/23/24 02/23/24 Range/Units 20:07 06:03 11:42 POC Glucose (mg/dL) 303 H 134 H 262 H (70-110) mg/dL Assessment and Plan Assessment: Acute onset of numbness and weakness of right side of the body including face arm and leg. MRI Brain and there is no acute ischemic stroke. Her NIH stroke scale was 4 on arrival, but now it is 7. Patient was considered not a candidate for thrombolysis because of unknown last known well, and uncontrolled blood pressure. No LVO noted on CTA.---on examination felt there is some effort related with motor strength on right side. I feel patient has a factor of psychogenic factor for her weakness. Rule out component of depression. Cephalgia, and neck pain unclear cause. History of chronic visual disturbance due to diabetic retinopathy, vitreous hemorrhage. And had extensive workup in past. History of small right occipital and left centrum semiovalve on previous MRI (outside) in November 2023. ESRD on dialysis since 04/21/2023 Chronic Diabetes Mellitus, with his most recent A1c 6.7 on 01/17/2024. 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 No acute intracranial process identified. I personally reviewed MRI, agree with the findings. No acute ischemic stroke. * Patient concerned about viral meningitis which she had suffered from before. Patient is on Plavix, cannot do lumbar puncture at this time per Dr. Severino. He discussed holding Pavix but she refused. Also today she refused to stop Plavix or pursue with lumbar puncture. Primary has started patient on steroids and muscle relaxer. * Patient had a HAYDER performed 12/31/2023, which was normal. No need to repeat. * Patient underwent event monitoring from 01/03/2024 through 01/25/2024. The rhythm strip revealed sinus mechanism. No atrial fibrillation noted. No ventricular ectopy. * CTA of head and neck revealed no significant vascular abnormality. At least small bilateral pleural effusions are partially imaged. We will defer to IM regarding pleural effusion. * Hemoglobin A1c 6.7 on 01/17/2024, well controlled * Lipid panel cholesterol 129, LDL 24, HDL 43, triglycerides 308. Continue Lipitor 40 mg. * Patient was on aspirin 81 mg daily. Plavix 75 mg daily also initiated on this admission by Dr. Severino * Psychiatry is consulted. Recommend patient to follow-up with psychiatry as outpatient. * Patient on Protonix 40 mg daily for gastric ulcer prophylaxis. * DVT prophylaxis: On subqheparin 5000 unit every 12 hour. * PT OT, speech therapy. * Telemetry monitoring * Optimize control of blood pressure, to normotensive level. The plan is discussed with patient and her nurse. Time with Patient: Less than 30
[2024-02-23 16:32] LABS: Glucose,Whole Blood 163 mg/dL (70-110)
[2024-02-23 20:23] LABS: Glucose,Whole Blood 200 mg/dL (70-110)
[2024-02-23] MEDS: traZODone HCL 50 MG TAB PO SCH (21:29)
[2024-02-23] MEDS: ALPRAZolam 0.5 MG TAB PO PRN (21:29)
[2024-02-24 04:39] LABS: Glucose,Whole Blood 122 mg/dL (70-110)
--- NOTE | 2024-02-24 05:26 | P.PN ---
Subjective Progress Note Date: 02/23/24 HISTORY OF PRESENT ILLNESS: This is a 34-year-old female who presented to the emergency department via EMS from [facility] where she has no PCP in the outpatient setting but has been followed by Dr. Morgan while in rehab with reports of uncontrolled hypertension and volume overload. Patient also with concerns of stroke with 3 days of ongoing headache and woke up again this morning from a sleep having weakness in her right arm and leg as well as some numbness on the side of her face. Patient reports she has been having difficulty with controlling her blood pressure and was recently started on clonidine patch although reports to having some itching and feels it is related to the patch. Patient with significant past medical history of CVA, insulin-dependent diabetes, GERD, hypertension, renal disease, seizure disorder, thyroid disorder, gastroparesis, maintained on hemodialysis Wednesday although also receiving another day of dialysis weekly and patient is currently awaiting a kidney and pancreas transplant. Patient also with significant history of anxiety and depression is a former smoker and used to use large amounts of marijuana and methamphetamine. Patient currently maintained on Cleviprex drip and awaiting an ICU bed. Will discontinue Clevi prex and add hydralazine orally as well as IV as needed. Labs reviewed revealed a mildly elevated white count of 15.3, hemoglobin is 10, platelets are 445, sodium is 134 with a potassium of 4.8, BUN is 25 and creatinine is 3.97. Blood sugars were in the 2-3 100s, troponin was negative. Chest x-ray revealed mild bilateral central edema that remains present for fluid overload. CT brain showing no acute intracranial hemorrhage mass effect or midline shift noted. CT angio shows no significant vascular abnormality noted with small bilateral pleural effusions partially imaged. EKG with sinus rhythm 02/21/2024: Continue to have significant epistaxis: Continue to be on IV medication to lower her blood pressure which will be changed completely to oral medication still having significant shortness of breath require dialysis more often, blood pressure still fluctuating slight better. Patient is still having significant neuro loss consistent with worsening pressure behind both eyes along with confusion and slightly change with weakness in the right side along with mild aphasia. 02/22/2024: Her nosebleed had stopped completely after receiving 1 dose of IV DDAVP per nephrology. Her right-sided weakness has resolved completely. Urgent hypertension continue to be a problem patient remain of clonidine patch but will titrate clonidine up to 2.3 mg 3 times a day, hydralazine up to 160 mg 3 times a day, also will switch her beta-stephanie by tomorrow from Coreg to labetalol 200 mg 3 times a day. If that does not settle the blood pressure seen by patient has done very well with the clonidine patch will put her back on clonidine patch as of tomorrow. Continue dialysis, patient has slightly more congestion with her sinus behind her eyes but exclude possibility of any sinus infection sinus CAT scan will be done. Also repeat thyroid testing. Blood sugar is much better for daytime but nighttime patient does so many snack because of blood pressure to be quite bit high after supper. Neurology standpoint had review her testing including MRI of the brain without contrast did not show any sign of stroke or ischemic change, even offering patient to go for lumbar puncture She refused to go off Plavix and prepare for that purpose, transesophageal echocardiogram and monitoring and evaluation advisor were done early, CT of the neck showed no significant blockage, patient A1c and lipid panel has been done recently, with everything else neurology has recommended psychiatry consultation to exclude out possibility of underlying psych problem probably to follow-up as an outpatient and prepare for her transplant as she become closer to in the future. Patient improving to some degree hoping to be able to let her probably go back to [facility] in the next 24 hours. 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 Patient blood pressure has been much better finally still fluctuating but with adjustment of medication including higher labetalol up to 200 mg twice a day hydralazine 150 mg twice a day and might have to go back on the clonidine patch at this point. She is well adjusted with dialysis and her discomfort around the sinus has been better sinus CAT scan was negative. Patient still doing physical therapy and has been doing better than when prepare hopefully for getting her back to SNF as soon as her preauthorization approved. REVIEW OF SYSTEMS: CONSTITUTIONAL: Well-developed mild respiratory distress, wearing BiPAP. EYES: No icterus sclerae, no conjunctivitis. EARS, NOSE, MOUTH, THROAT, and FACE: No sore throat, lymphadenopathy, carotid bruits or deformity. RESPIRATORY: Positive shortness of breath cough and wheezes. CARDIOVASCULAR: Positive PND orthopnea and palpitation no angina. GASTROINTESTINAL: No Abd pain, Nausea or vomiting, no Diarrhea or constipation, No GI Bleed, no distention or masses. GENITOURINARY: Negative for Hematuria or UTI, no kidney stones. INTEGUMENT/BREAST: Negative for any muscular injury with mild osteoarthritis.. HEMATOLOGIC/LYMPHATIC: Negative for bleed or purpura. MUSCULOSKELTAL: Negative for Myalgia or arthralgia. NEURLOGICAL: No LOC, Sz or syncope, blurred vision dizziness or abnormality.. BEHAVIORAL/PSYCH: Negative. ENDOCRINE: Negative. PHYSICAL EXAMINATION: General Appearance: Alert, cooperative, slightly distressed looks older than her age. Neck HEENT: Supple, no lymphadenopathy, no thyroid enlargement, no carotid bruits. Lungs: Decreased breath sound bilaterally with fine rhonchi positive crackles and wheezes in both lung armendariz. Chest Wall: Decreased expansion with deep inspiration no tenderness and no deformity was found on exam, no costochondral pain or discomfort. Heart: Regular rate and rhythm, S1, S2 positive tachycardia , no murmur, rub or gallop. Back: Symmetric, no curvature, ROM normal, no CVA tenderness. Abdomen: Soft, non-tender, bowel sounds active all four quadrants, no masses, no organomegaly. Extremities: Extremities normal, atraumatic, no cyanosis trace edema. Pulses: 2+ and symmetric. Skin: Skin color, texture, tugor normal, no rashes or lesions. Neurologic: Alert oriented x3 cranial nerves II through XII intact, no motor deficit, no abnormal balance or gait. ASSESSMENT AND PLAN: _CVA with right-sided weakness: MRI of the brain is negative so far, neurology has finished their investigation and believe with review of her MRI there is no evidence for stroke or ischemic change. May be although this is more hypoperfusion related to fluid overload and with patient is going to dialysis causing her symptoms. _Acute hypertensive urgency with hypertensive encephalopathy: Continue to adjust blood pressure medication on daily basis try to get her systolic below 140. _End-stage renal disease on hemodialysis initially was done 5 days a week and recently was decreased to 3 days a week. Continue to have ultrafiltration/hemodialysis. _ Cervical radiculopathy will continue with oral Decadron for a short course as well as continue with Fernley. Symptoms are slightly better. _Volume overload with bilateral pleural effusions: Most likely diastolic congestive heart failure from dialysis patient is doing dialysis regularly 4 days a week currently. _Severe dyspnea and shortness of breath mostly from fluid overload related to her dialysis symptoms are much better lately. _Acute on chronic hypoxic respiratory failure secondary to continued volume overload, patient reports has been wearing oxygen at [facility] continuously since last admission _Type 1 diabetes: Levemir was changed to 15 units twice a day and NovoLog 7 units AC breakfast and lunch 10 AC dinner. Blood sugar still fluctuating slightly but worsening at nighttime from her snack mostly. Blood sugar has been better so far. _Severe depression: Patient be seen psych adjust medication accordingly try to control her symptoms she probably benefit from doing counseling on regular basis. _Severe iron deficiency anemia: Continue Arenesp along with iron infusion hemoglobin still running above 7 no need for transfusion. _Gastroparesis: She is doing slightly better with the combination of pantoprazole and Reglan. _Hyperlipidemia: Remain on atorvastatin 40 mg a day. _Hypothyroidism: Continue levothyroxine 175 mcg daily. _Seizure: With no seizure activity lately continue Depakote ER 500 mg twice a day. _Chronic pain syndrome: Plain related to lower back pain and recurrent neuropathy pain. Patient can benefit probably from smaller dose of gabapentin her hydrocodone was increased to 7.5 mg. CODE STATUS: Full code. Prognosis: Guarded. Discharge planning: Patient will be transferred to SNF anytime in the next 48 hours. Objective - Vital Signs Vital signs: Vital Signs Temp 98.1 F 02/23/24 23:56 Pulse 78 02/23/24 23:56 Resp 16 02/23/24 23:56 BP 145/76 02/23/24 23:56 Pulse Ox 98 02/23/24 23:56 FiO2 Intake & Output 02/23/24 02/23/24 02/24/24 06:59 18:59 06:59 Intake Total 444 960 Balance 444 960 Weight 73.1 kg 73.1 kg Intake: Oral 444 960 Other: Voiding Method Bedside Commode Bedside Commode Bedside Commode # Voids 0 - Labs CBC & Chem 7: 02/21/24 08:39 02/21/24 08:39 Labs: Abnormal Lab Results - Last 24 Hours (Table) 02/23/24 02/23/24 02/23/24 Range/Units 06:03 11:42 16:30 POC Glucose (mg/dL) 134 H 262 H 163 H (70-110) mg/dL 02/23/24 Range/Units 20:22 POC Glucose (mg/dL) 200 H (70-110) mg/dL
[2024-02-24 06:01] LABS: Glucose,Whole Blood 121 mg/dL (70-110)
[2024-02-24 09:09] LABS: Anisocytosis Slight; Basophils # (A) 0.1 k/uL (0-0.2); Basophils % (A) 1 %; Eosinophils # (A) 2.4 k/uL (0-0.7); Eosinophils % (A) 20 %; HCT 26.8 % (34.0-46.0); HGB 8.8 gm/dL (11.4-16.0); Hypochromasia Slight; Lymphocytes # (A) 1.9 k/uL (1.0-4.8); Lymphocytes % (A) 15 %; MCH 32.3 pg (25.0-35.0); MCHC 32.9 g/dL (31.0-37.0); MCV 98.3 fL (80.0-100.0); Macrocytosis Slight; Mean Platelet Volume 8.2; Monocytes # (A) 0.9 k/uL (0-1.0); Monocytes % (A) 7 %; Neutrophils % (A) 56 %; Platelet Count 288 k/uL (150-450); RBC 2.73 m/uL (3.80-5.40); RDW 17.8 % (11.5-15.5); WBC 12.5 k/uL (3.8-10.6)
[2024-02-24 09:22] LABS: ALT 20 U/L (4-34); AST 16 U/L (14-36); African American GFR (CKD) 13 (>60 ml/min/1.73 sqM); Albumin 3.1 g/dL (3.5-5.0); Alkaline Phosphatase 100 U/L (38-126); Anion Gap 9 mmol/L; Blood Urea Nitrogen 37 mg/dL (7-17); Calcium 8.6 mg/dL (8.4-10.2); Carbon Dioxide 26 mmol/L (22-30); Chloride 97 mmol/L (98-107); Glucose 173 mg/dL (74-99); Non-African American GFR(CKD) 12 (>60 ml/min/1.73 sqM); Potassium 5.1 mmol/L (3.5-5.1); Sodium 132 mmol/L (137-145); Total Bilirubin 0.7 mg/dL (0.2-1.3); Total Protein 5.3 g/dL (6.3-8.2)
--- NOTE | 2024-02-24 11:22 | P.PN ---
Subjective Patient is seen in follow-up for end-stage renal disease. She is maintained on hemodialysis on Wednesday schedule. Tolerating dialysis well. Again developed nosebleed. Vital signs are stable. General: No acute distress. HEENT: Head exam is unremarkable. Nosebleed noted. LUNGS: No audible rhonchi or wheezes. HEART: Rate and Rhythm are regular. ABDOMEN: Nontender. EXTREMITITES: No edema. Objective - Vital Signs Vital signs: Vital Signs Temp 98.1 F 02/24/24 08:00 Pulse 85 02/24/24 08:00 Resp 14 02/24/24 09:00 BP 163/97 02/24/24 10:50 Pulse Ox 99 02/24/24 08:00 FiO2 Intake & Output 02/23/24 02/24/24 02/24/24 18:59 06:59 18:59 Intake Total 960 240 Balance 960 240 Weight 73.1 kg 76 kg Intake: Oral 960 240 Other: Voiding Method Bedside Commode Bedside Commode Toilet # Voids 0 1 - Labs CBC & Chem 7: 02/24/24 08:44 02/24/24 08:44 Labs: Abnormal Lab Results - Last 24 Hours (Table) 02/23/24 02/23/24 02/23/24 Range/Units 11:42 16:30 20:22 WBC (3.8-10.6) k/uL RBC (3.80-5.40) m/uL Hgb (11.4-16.0) gm/dL Hct (34.0-46.0) % RDW (11.5-15.5) % Eosinophils # (0-0.7) k/uL Sodium (137-145) mmol/L Chloride (98-107) mmol/L BUN (7-17) mg/dL Creatinine (0.52-1.04) mg/dL Glucose (74-99) mg/dL POC Glucose (mg/dL) 262 H 163 H 200 H (70-110) mg/dL Total Protein (6.3-8.2) g/dL Albumin (3.5-5.0) g/dL 02/24/24 02/24/24 02/24/24 Range/Units 04:37 06:00 08:44 WBC 12.5 H (3.8-10.6) k/uL RBC 2.73 L (3.80-5.40) m/uL Hgb 8.8 L (11.4-16.0) gm/dL Hct 26.8 L (34.0-46.0) % RDW 17.8 H (11.5-15.5) % Eosinophils # 2.4 H (0-0.7) k/uL Sodium (137-145) mmol/L Chloride (98-107) mmol/L BUN (7-17) mg/dL Creatinine (0.52-1.04) mg/dL Glucose (74-99) mg/dL POC Glucose (mg/dL) 122 H 121 H (70-110) mg/dL Total Protein (6.3-8.2) g/dL Albumin (3.5-5.0) g/dL 02/24/24 Range/Units 08:44 WBC (3.8-10.6) k/uL RBC (3.80-5.40) m/uL Hgb (11.4-16.0) gm/dL Hct (34.0-46.0) % RDW (11.5-15.5) % Eosinophils # (0-0.7) k/uL Sodium 132 L (137-145) mmol/L Chloride 97 L (98-107) mmol/L BUN 37 H (7-17) mg/dL Creatinine 4.65 H (0.52-1.04) mg/dL Glucose 173 H (74-99) mg/dL POC Glucose (mg/dL) (70-110) mg/dL Total Protein 5.3 L (6.3-8.2) g/dL Albumin 3.1 L (3.5-5.0) g/dL Assessment and Plan Plan: Assessment: 1. End-stage renal disease maintained on hemodialysis on Wednesday schedule. 2. Hypertension with chronic kidney disease. 3. Diabetes mellitus. 4. Anemia of chronic kidney disease. On Aranesp. Iron replete. 5. Chronic kidney disease mineral bone disease maintained on Renvela. 6. Volume overload. Improved with ultrafiltration. 7. Right-sided weakness. Improved. CT of the brain and CTA negative. 8. Diabetic gastroparesis. Plan: Currently seen while undergoing hemodialysis. Another treatment tomorrow. Repeat IV DDAVP x 1 today. Increase dose of labetalol.
[2024-02-24 11:36] LABS: Glucose,Whole Blood 251 mg/dL (70-110)
[2024-02-24] MEDS: ARIPiprazole 5 MG TAB PO SCH (13:02)
[2024-02-24] MEDS: DESMOPRESSIN ACETATE 22 MCG in SODIUM CHLORIDE 0.9% 50 ML IVPB ONE (13:05)
--- NOTE | 2024-02-24 13:38 | P.PN ---
Subjective Progress Note Date: 02/24/24 I am following-up with patient and continues to have headache. Having high blood pressure. Is getting dialysis. Has epistaxis. Objective - Vital Signs Vital signs: Vital Signs Temp 97.6 F 02/24/24 13:25 Pulse 97 02/24/24 13:25 Resp 18 02/24/24 13:25 BP 174/93 02/24/24 13:25 Pulse Ox 99 02/24/24 08:00 FiO2 Intake & Output 02/23/24 02/24/24 02/24/24 18:59 06:59 18:59 Intake Total 960 640 Output Total 3900 Balance 960 -3260 Weight 73.1 kg 76 kg Intake: Oral 960 240 Hemodialysis 400 Output: Hemodialysis 3900 Other: Voiding Method Bedside Commode Bedside Commode Toilet # Voids 0 1 - Exam General: Sitting in bed and is not in acute distress. Neuro: The patient is awake, alert, oriented to self, place and time. Is following simple commands. Pupils are round, equal and reactive to light. Visual armendariz are full to confrontation. EOM intact and no nystagmus. No facial weakness. No dysarthria. Motor: Has right sided weakness about 4-4+ but feel there is effort related. Left is 5/5. Sensation: Is decrease to touch on the right side. - Labs CBC & Chem 7: 02/24/24 08:44 02/24/24 08:44 Labs: Abnormal Lab Results - Last 24 Hours (Table) 02/23/24 02/23/24 02/24/24 Range/Units 16:30 20:22 04:37 WBC (3.8-10.6) k/uL RBC (3.80-5.40) m/uL Hgb (11.4-16.0) gm/dL Hct (34.0-46.0) % RDW (11.5-15.5) % Eosinophils # (0-0.7) k/uL Sodium (137-145) mmol/L Chloride (98-107) mmol/L BUN (7-17) mg/dL Creatinine (0.52-1.04) mg/dL Glucose (74-99) mg/dL POC Glucose (mg/dL) 163 H 200 H 122 H (70-110) mg/dL Total Protein (6.3-8.2) g/dL Albumin (3.5-5.0) g/dL 02/24/24 02/24/24 02/24/24 Range/Units 06:00 08:44 08:44 WBC 12.5 H (3.8-10.6) k/uL RBC 2.73 L (3.80-5.40) m/uL Hgb 8.8 L (11.4-16.0) gm/dL Hct 26.8 L (34.0-46.0) % RDW 17.8 H (11.5-15.5) % Eosinophils # 2.4 H (0-0.7) k/uL Sodium 132 L (137-145) mmol/L Chloride 97 L (98-107) mmol/L BUN 37 H (7-17) mg/dL Creatinine 4.65 H (0.52-1.04) mg/dL Glucose 173 H (74-99) mg/dL POC Glucose (mg/dL) 121 H (70-110) mg/dL Total Protein 5.3 L (6.3-8.2) g/dL Albumin 3.1 L (3.5-5.0) g/dL 02/24/24 Range/Units 11:34 WBC (3.8-10.6) k/uL RBC (3.80-5.40) m/uL Hgb (11.4-16.0) gm/dL Hct (34.0-46.0) % RDW (11.5-15.5) % Eosinophils # (0-0.7) k/uL Sodium (137-145) mmol/L Chloride (98-107) mmol/L BUN (7-17) mg/dL Creatinine (0.52-1.04) mg/dL Glucose (74-99) mg/dL POC Glucose (mg/dL) 251 H (70-110) mg/dL Total Protein (6.3-8.2) g/dL Albumin (3.5-5.0) g/dL Assessment and Plan Assessment: Acute onset of numbness and weakness of right side of the body including face arm and leg. MRI Brain and there is no acute ischemic stroke. Her NIH stroke scale was 4 on arrival, but now it is 7. Patient was considered not a candidate for thrombolysis because of unknown last known well, and uncontrolled blood pressure. No LVO noted on CTA.---on examination felt there is some effort related with motor strength on right side. I feel patient has a factor of psychogenic factor for her weakness. Rule out component of depression. Cephalgia, and neck pain unclear cause. Possible component of hypertensive. History of chronic visual disturbance due to diabetic retinopathy, vitreous hemorrhage. And had extensive workup in past. History of small right occipital and left centrum semiovalve on previous MRI (outside) in November 2023. ESRD on dialysis since 04/21/2023 Chronic Diabetes Mellitus, with his most recent A1c 6.7 on 01/17/2024. 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 No acute intracranial process identified. I personally reviewed MRI, agree with the findings. No acute ischemic stroke. * Patient concerned about viral meningitis which she had suffered from before. Patient is on Plavix, cannot do lumbar puncture at this time per Dr. Severino. He discussed holding Pavix but she refused. She refused lumbar puncture. Primary has started patient on steroids and muscle relaxer. * I started her on Melatonin 1mg qhs which helps with headache and sleep. * Patient had a HAYDER performed 12/31/2023, which was normal. No need to repeat. * Patient underwent event monitoring from 01/03/2024 through 01/25/2024. The rhythm strip revealed sinus mechanism. No atrial fibrillation noted. No ventricular ectopy. * CTA of head and neck revealed no significant vascular abnormality. At least small bilateral pleural effusions are partially imaged. We will defer to IM regarding pleural effusion. * Hemoglobin A1c 6.7 on 01/17/2024, well controlled * Lipid panel cholesterol 129, LDL 24, HDL 43, triglycerides 308. Continue Lipitor 40 mg. * Patient was on aspirin 81 mg daily. Plavix 75 mg daily also initiated on this admission by Dr. Severino but since has epistaxis will discontinue and she is in agreement. * Psychiatry is consulted. Recommend patient to follow-up with psychiatry as outpatient. * Patient on Protonix 40 mg daily for gastric ulcer prophylaxis. * DVT prophylaxis: On subqheparin 5000 unit every 12 hour. * PT OT, speech therapy. * Telemetry monitoring * Optimize control of blood pressure, to normotensive level. The plan is discussed with patient and her nurse. Time with Patient: Less than 30
--- NOTE | 2024-02-24 14:08 | P.PN ---
Subjective Progress Note Date: 02/24/24 This is a 34-year-old female with a history of multiple medical problems, who was seen in the emergency department, trauma room #1. The patient was admitted with a diagnosis of hypertensive emergency. Her blood pressure was well over 200 systolic. The patient was started on Cleviprex, and is currently on Cleviprex at 7 mg an hour. She is getting oxygen at 3 L by nasal cannula. CT of the brain was negative for anything acute, and angiography CT, was also negative. The patient was brought in from [facility]. The patient was recently in the hospital, on February 04, for fluid overload, hypoxemic respiratory failure, end-stage renal disease, hyperkalemia, anemia of chronic disease, diabetes, recent CVA with right-sided weakness, and optic neuritis. The patient is very lethargic today in the emergency department. White count 15.3, hemoglobin 10, hematocrit 30.5, platelet count 445,000. Sodium 134, potassium 4.8, chloride 93, CO2 34, BUN 25, and creatinine 3.97. Glucose is 287. ALT is 40. Troponin less than 0.012. Albumin 3.8. Chest x-ray shows fluid overload. Progress note dated February 19, 2024. This is a 34-year-old female with a history of end-stage renal disease, who was seen in the emergency department yesterday, with hypertensive emergency, and hypertensive encephalopathy. In the emergency department, the patient was on Cleviprex for blood pressure support. Currently, she is seen in room 365. She is feeling better. She is on 3 L of oxygen. She is not receiving any IV fluids. Obviously, because she is on the floor, she is no longer on Cleviprex. White count is 13.9, hemoglobin 9, hematocrit 26.6, platelet count 351,000. Sodium 130, potassium 5, chloride 73, CO2 28, BUN 31, and creatinine 3.98. Glucose is 263. Albumin is 3.1. Progress note dated February 20, 2024. The patient is seen today in room 365. She is currently on room air. She is not receiving any IV fluids. Unfortunately, the patient developed some epistaxis, and has been having issues with bleeding from the left nostril, since last night. Other than that, she is doing reasonably well. No new labs today other than a glucose of 243. On today's evaluation of 02/21/2024, the patient is being seen for a follow-up. The patient is on room air oxygen. The active issue for now remains elevated blood pressure. Earlier this morning, the patient's blood pressure was as high as 181/100. Clonidine was added to the regimen and the patient is currently on clonidine 0.2 mg p.o. 3 times daily. She is also on nifedipine 60 mg p.o. twice daily Imdur 30 mg p.o. daily hydralazine 100 mg p.o. 3 times daily and Coreg 25 mg p.o. twice a day. Noted blood pressure subsequently improved. She is having episodes of tach epistaxis. The nostril is currently packed and the patient is awaiting ENT evaluation. Today is a dialysis day for this patient. The white cell count of 15 with a hemoglobin 8.9 and a platelet count of 315. BUN is 35 with a creatinine of 5 and a sodium levels at 133. The patient is currently on room air oxygen with a pulse ox of 95%. No altered mentation at this point in time and she is fully alert and awake and communicating. On 02/22/2024, the patient is being seen for a follow-up. Blood pressure remains elevated and modification of blood pressure medication was done and the patient's clonidine dose has been increased 2.3 mg p.o. 3 times daily and this is in combination with Coreg 25 mg p.o. twice a day and the patient is also on hydralazine 150 mg p.o. 3 times daily and Procardia 60 mg p.o. twice a day. The patient has no active epistaxis at this point in time. Most recent BP is down to 163/94. She was on room air oxygen with a pulse ox of 97%. During her dialysis, patient was placed on oxygen. No encephalopathy. She is communicating. No headache. No focal neurological deficit at this point in time. No chest pain. On today's evaluation of 02/23/2024, the patient is being seen for a follow-up. BP is under better control on today's evaluation. Her most recent BP is around 165/95. Blood pressure is being monitored very closely. She underwent hemodialysis yesterday. No plans for hemodialysis today. No altered mentation. No chest pain. No shortness of breath. Her current blood pressure Medication coverage includes clonidine 0.3 mg p.o. 3 times daily, hydralazine 150 mg p.o. 3 times daily, labetalol 200 mg p.o. twice daily, minoxidil 2.5 mg p.o. daily, and Procardia 60 mg p.o. twice a day. On 02/24/2024, the patient is being seen for a follow-up. Morning blood pressure was again elevated. The patient is having recurrent epistaxis. At the same time, the patient is undergoing hemodialysis today. Blood pressure control has become an ongoing issue for this patient. She is on a combination of antihypertensive medication. She is currently on clonidine 0.3 mg 3 times daily, hydralazine 150 mg 3 times daily, labetalol and a dose has been increased up to 400 mg p.o. twice daily, Procardia 60 mg p.o. twice daily and minoxidil 2.5 mg p.o. daily. WBC count is 12.5, hemoglobin 8.8 and platelet count is at 188. Sodium is at 132, BUN 37 with a creatinine of 4.6. She remains on aspirin and Plavix. Nephrology on the case. Objective - Vital Signs Vital signs: Vital Signs Temp 98.1 F 02/24/24 04:00 Pulse 87 02/24/24 04:00 Resp 18 02/24/24 04:00 BP 184/100 02/24/24 04:00 Pulse Ox 98 02/24/24 04:00 FiO2 Intake & Output 02/23/24 02/24/24 02/24/24 18:59 06:59 18:59 Intake Total 960 240 Balance 960 240 Weight 73.1 kg 76 kg Intake: Oral 960 240 Other: Voiding Method Bedside Commode Bedside Commode # Voids 0 1 - Exam No acute distress, awake and alert, currently on room air. The patient is nostril is packed due to recurrent epistaxis. No signs of any respiratory distress at this point in time. HEENT examination is grossly unremarkable. Mucous membranes are moist. No oral lesions. Bleeding from left nostril. Most of the blood is dried, and dark. Neck supple. Full range of motion. No adenopathy thyromegaly or neck vein distention. Cardiovascular examination reveals regular rhythm rate. S1-S2 normal. No S3 or S4. No discernible murmur noted. Lungs reveal diffuse crackles. Breath sounds are equal bilaterally. No rhonchi. No wheezes. Breath Sounds Are Improved. Breath sounds equal bilaterally. Abdomen soft bowel sounds are heard. No masses or tenderness. Extremities are intact. No cyanosis clubbing or edema. Skin is without rash or lesion. Neurologic examination reveals the patient to be more awake and alert. - Labs CBC & Chem 7: 02/24/24 08:44 02/24/24 08:44 Labs: Abnormal Lab Results - Last 24 Hours (Table) 02/23/24 02/23/24 02/23/24 Range/Units 11:42 16:30 20:22 WBC (3.8-10.6) k/uL RBC (3.80-5.40) m/uL Hgb (11.4-16.0) gm/dL Hct (34.0-46.0) % RDW (11.5-15.5) % Eosinophils # (0-0.7) k/uL Sodium (137-145) mmol/L Chloride (98-107) mmol/L BUN (7-17) mg/dL Creatinine (0.52-1.04) mg/dL Glucose (74-99) mg/dL POC Glucose (mg/dL) 262 H 163 H 200 H (70-110) mg/dL Total Protein (6.3-8.2) g/dL Albumin (3.5-5.0) g/dL 02/24/24 02/24/24 02/24/24 Range/Units 04:37 06:00 08:44 WBC 12.5 H (3.8-10.6) k/uL RBC 2.73 L (3.80-5.40) m/uL Hgb 8.8 L (11.4-16.0) gm/dL Hct 26.8 L (34.0-46.0) % RDW 17.8 H (11.5-15.5) % Eosinophils # 2.4 H (0-0.7) k/uL Sodium (137-145) mmol/L Chloride (98-107) mmol/L BUN (7-17) mg/dL Creatinine (0.52-1.04) mg/dL Glucose (74-99) mg/dL POC Glucose (mg/dL) 122 H 121 H (70-110) mg/dL Total Protein (6.3-8.2) g/dL Albumin (3.5-5.0) g/dL 02/24/24 Range/Units 08:44 WBC (3.8-10.6) k/uL RBC (3.80-5.40) m/uL Hgb (11.4-16.0) gm/dL Hct (34.0-46.0) % RDW (11.5-15.5) % Eosinophils # (0-0.7) k/uL Sodium 132 L (137-145) mmol/L Chloride 97 L (98-107) mmol/L BUN 37 H (7-17) mg/dL Creatinine 4.65 H (0.52-1.04) mg/dL Glucose 173 H (74-99) mg/dL POC Glucose (mg/dL) (70-110) mg/dL Total Protein 5.3 L (6.3-8.2) g/dL Albumin 3.1 L (3.5-5.0) g/dL Assessment and Plan Plan: Acute hypertensive urgency, with hypertensive encephalopathy, and mental status changes. Continues to have elevated blood pressure. Adjustments of the medications being done on a daily basis. Having episodes of epistaxis related to elevated blood pressure. The patient also on a combination of aspirin and Plavix. Recent admission, in January 2024, for hypoxemic respiratory failure, and fluid overload. History of end-stage renal disease, currently on hemodialysis. Anemia of chronic disease. Diabetes mellitus. Recent CVA with right-sided weakness. History of optic neuritis. Epistaxis, probably related to her poorly controlled blood pressure. Plan: Continue blood pressure management Labetalol 400 mg p.o. twice a day Clonidine 0.3 mg 3 times daily Procardia 60 mg p.o. twice daily Coreg 25 mg p.o. twice daily Hydralazine 150 mg 3 times daily Minoxidil 2.5 mg p.o. daily Patient undergoing hemodialysis today. No signs of encephalopathy The nasal packing is being performed in regards to her epistaxis.
[2024-02-24 16:35] LABS: Glucose,Whole Blood 329 mg/dL (70-110)
[2024-02-24 19:57] LABS: Glucose,Whole Blood 265 mg/dL (70-110)
[2024-02-24] MEDS: MELATONIN 1 MG TAB PO SCH (21:01)
[2024-02-24] MEDS: LABETALOL 200 MG TAB PO SCH (21:01)
[2024-02-24] MEDS: ACETAMINOPHEN TAB 325 MG TAB PO PRN (21:03)
--- NOTE | 2024-02-25 06:01 | P.PN ---
Subjective Progress Note Date: 02/24/24 HISTORY OF PRESENT ILLNESS: This is a 34-year-old female who presented to the emergency department via EMS from [facility] where she has no PCP in the outpatient setting but has been followed by Dr. Morgan while in rehab with reports of uncontrolled hypertension and volume overload. Patient also with concerns of stroke with 3 days of ongoing headache and woke up again this morning from a sleep having weakness in her right arm and leg as well as some numbness on the side of her face. Patient reports she has been having difficulty with controlling her blood pressure and was recently started on clonidine patch although reports to having some itching and feels it is related to the patch. Patient with significant past medical history of CVA, insulin-dependent diabetes, GERD, hypertension, renal disease, seizure disorder, thyroid disorder, gastroparesis, maintained on hemodialysis Wednesday although also receiving another day of dialysis weekly and patient is currently awaiting a kidney and pancreas transplant. Patient also with significant history of anxiety and depression is a former smoker and used to use large amounts of marijuana and methamphetamine. Patient currently maintained on Cleviprex drip and awaiting an ICU bed. Will discontinue Clevi prex and add hydralazine orally as well as IV as needed. Labs reviewed revealed a mildly elevated white count of 15.3, hemoglobin is 10, platelets are 445, sodium is 134 with a potassium of 4.8, BUN is 25 and creatinine is 3.97. Blood sugars were in the 2-3 100s, troponin was negative. Chest x-ray revealed mild bilateral central edema that remains present for fluid overload. CT brain showing no acute intracranial hemorrhage mass effect or midline shift noted. CT angio shows no significant vascular abnormality noted with small bilateral pleural effusions partially imaged. EKG with sinus rhythm 02/21/2024: Continue to have significant epistaxis: Continue to be on IV medication to lower her blood pressure which will be changed completely to oral medication still having significant shortness of breath require dialysis more often, blood pressure still fluctuating slight better. Patient is still having significant neuro loss consistent with worsening pressure behind both eyes along with confusion and slightly change with weakness in the right side along with mild aphasia. 02/22/2024: Her nosebleed had stopped completely after receiving 1 dose of IV DDAVP per nephrology. Her right-sided weakness has resolved completely. Urgent hypertension continue to be a problem patient remain of clonidine patch but will titrate clonidine up to 2.3 mg 3 times a day, hydralazine up to 160 mg 3 times a day, also will switch her beta-stephanie by tomorrow from Coreg to labetalol 200 mg 3 times a day. If that does not settle the blood pressure seen by patient has done very well with the clonidine patch will put her back on clonidine patch as of tomorrow. Continue dialysis, patient has slightly more congestion with her sinus behind her eyes but exclude possibility of any sinus infection sinus CAT scan will be done. Also repeat thyroid testing. Blood sugar is much better for daytime but nighttime patient does so many snack because of blood pressure to be quite bit high after supper. Neurology standpoint had review her testing including MRI of the brain without contrast did not show any sign of stroke or ischemic change, even offering patient to go for lumbar puncture She refused to go off Plavix and prepare for that purpose, transesophageal echocardiogram and forepart rasper were done early, CT of the neck showed no significant blockage, patient A1c and lipid panel has been done recently, with everything else neurology has recommended psychiatry consultation to exclude out possibility of underlying psych problem probably to follow-up as an outpatient and prepare for her transplant as she become closer to in the future. Patient improving to some degree hoping to be able to let her probably go back to [facility] in the next 24 hours. 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 Patient blood pressure has been much better finally still fluctuating but with adjustment of medication including higher labetalol up to 200 mg twice a day hydralazine 150 mg twice a day and might have to go back on the clonidine patch at this point. She is well adjusted with dialysis and her discomfort around the sinus has been better sinus CAT scan was negative. Patient still doing physical therapy and has been doing better than when prepare hopefully for getting her back to SNF as soon as her preauthorization approved. 02/24/2024: Patient is feeling slightly better, started having nosebleed again, her blood pressure still slightly bit elevated was started on minoxidil 2.5 mg by nephrology and does be titrated possibly up to 5 mg can be used up to twice a day if blood pressure still high. Patient might be due for dialysis today or tomorrow and still trying to do preauthorization for getting patient back to SNF. No further study or testing need to be done for neurology, her anemia has been stable. Patient is not having any chest pain or tightness. Still complaining of generalized body pain and ache and kept complaining about side effect of her clonidine patch which patient remain off at this point. Expect hopefully discharge back to SNF tomorrow. REVIEW OF SYSTEMS: CONSTITUTIONAL: Well-developed mild respiratory distress, wearing BiPAP. EYES: No icterus sclerae, no conjunctivitis. EARS, NOSE, MOUTH, THROAT, and FACE: No sore throat, lymphadenopathy, carotid bruits or deformity. RESPIRATORY: Positive shortness of breath cough and wheezes. CARDIOVASCULAR: Positive PND orthopnea and palpitation no angina. GASTROINTESTINAL: No Abd pain, Nausea or vomiting, no Diarrhea or constipation, No GI Bleed, no distention or masses. GENITOURINARY: Negative for Hematuria or UTI, no kidney stones. INTEGUMENT/BREAST: Negative for any muscular injury with mild osteoarthritis.. HEMATOLOGIC/LYMPHATIC: Negative for bleed or purpura. MUSCULOSKELTAL: Negative for Myalgia or arthralgia. NEURLOGICAL: No LOC, Sz or syncope, blurred vision dizziness or abnormality.. BEHAVIORAL/PSYCH: Negative. ENDOCRINE: Negative. PHYSICAL EXAMINATION: General Appearance: Alert, cooperative, slightly distressed looks older than her age. Neck HEENT: Supple, no lymphadenopathy, no thyroid enlargement, no carotid bruits. Lungs: Decreased breath sound bilaterally with fine rhonchi positive crackles and wheezes in both lung armendariz. Chest Wall: Decreased expansion with deep inspiration no tenderness and no deformity was found on exam, no costochondral pain or discomfort. Heart: Regular rate and rhythm, S1, S2 positive tachycardia , no murmur, rub or gallop. Back: Symmetric, no curvature, ROM normal, no CVA tenderness. Abdomen: Soft, non-tender, bowel sounds active all four quadrants, no masses, no organomegaly. Extremities: Extremities normal, atraumatic, no cyanosis trace edema. Pulses: 2+ and symmetric. Skin: Skin color, texture, tugor normal, no rashes or lesions. Neurologic: Alert oriented x3 cranial nerves II through XII intact, no motor deficit, no abnormal balance or gait. ASSESSMENT AND PLAN: _CVA with right-sided weakness: MRI of the brain is negative so far, neurology has finished their investigation and believe with review of her MRI there is no evidence for stroke or ischemic change. May be although this is more hypoperfusion related to fluid overload and with patient is going to dialysis causing her symptoms. _Acute hypertensive urgency with hypertensive encephalopathy: Continue to adjust blood pressure medication on daily basis try to get her systolic below 140. _End-stage renal disease on hemodialysis initially was done 5 days a week and recently was decreased to 3 days a week. Continue to have ultrafiltration/hemodialysis. _ Cervical radiculopathy will continue with oral Decadron for a short course as well as continue with Lead. Symptoms are slightly better. _Volume overload with bilateral pleural effusions: Most likely diastolic congestive heart failure from dialysis patient is doing dialysis regularly 4 days a week currently. _Severe dyspnea and shortness of breath mostly from fluid overload related to her dialysis symptoms are much better lately. _Acute on chronic hypoxic respiratory failure secondary to continued volume overload, patient reports has been wearing oxygen at [facility] continuously since last admission. _Epistaxis: Patient will be admitted probably another dose of DDAVP. _Type 1 diabetes: Levemir was changed to 15 units twice a day and NovoLog 7 units AC breakfast and lunch 10 AC dinner. Blood sugar still fluctuating slightly but worsening at nighttime from her snack mostly. Blood sugar has been better so far. _Severe depression: The patient was seen by psych and switch to Zoloft, combined with trazodone and alprazolam 0.5 mg twice a day also the use of Vistaril on as- needed basis. _Severe iron deficiency anemia: Continue Arenesp along with iron infusion hemoglobin still running above 7 no need for transfusion. _Gastroparesis: She is doing slightly better with the combination of pantoprazole and Reglan. _Hyperlipidemia: Remain on atorvastatin 40 mg a day. _Hypothyroidism: Continue levothyroxine 175 mcg daily. _Seizure: With no seizure activity lately continue Depakote ER 500 mg twice a day. _Chronic pain syndrome: Plain related to lower back pain and recurrent neur opathy pain. Still on hydrocodone 7.5 mg every 6 hours combined with Fioricet and Tylenol. CODE STATUS: Full code. Prognosis: Guarded. Discharge planning: Patient will be transferred to [facility] anytime in the next 48 hours. Objective - Vital Signs Vital signs: Vital Signs Temp 98.1 F 02/24/24 04:00 Pulse 87 02/24/24 04:00 Resp 18 02/24/24 04:00 BP 184/100 02/24/24 04:00 Pulse Ox 98 02/24/24 04:00 FiO2 Intake & Output 02/23/24 02/23/24 02/24/24 06:59 18:59 06:59 Intake Total 444 960 Balance 444 960 Weight 73.1 kg 73.1 kg 76 kg Intake: Oral 444 960 Other: Voiding Method Bedside Commode Bedside Commode Bedside Commode # Voids 0 0 - Labs CBC & Chem 7: 02/24/24 08:44 02/24/24 08:44 Labs: Abnormal Lab Results - Last 24 Hours (Table) 02/23/24 02/23/24 02/23/24 Range/Units 06:03 11:42 16:30 POC Glucose (mg/dL) 134 H 262 H 163 H (70-110) mg/dL 02/23/24 02/24/24 Range/Units 20:22 04:37 POC Glucose (mg/dL) 200 H 122 H (70-110) mg/dL
[2024-02-25 06:02] LABS: Glucose,Whole Blood 104 mg/dL (70-110)
--- NOTE | 2024-02-25 11:09 | P.DS ---
Providers Date of admission: 02/18/24 07:19 Attending physician: Jason Morgan Consults: 02/18/24 07:16 Consult Physician Routine Consulting Provider: Jorge Thornton Consult Reason/Comments: ICU Do you want consulting provider notified?: Already Contacted 02/18/24 07:17 Consult Physician Routine Consulting Provider: Charlene Lim Consult Reason/Comments: dialysis Do you want consulting provider notified?: Already Contacted 02/18/24 11:45 Consult Physician Urgent Consulting Provider: Randi Severino Consult Reason/Comments: neuro symptoms Do you want consulting provider notified?: Yes 02/21/24 08:20 Consult Physician Routine Consulting Provider: Luis Eduardo Suarez Consult Reason/Comments: Epistaxis not control Do you want consulting provider notified?: Yes 02/23/24 04:55 Consult Physician Routine Consulting Provider: Yvan Torres Consult Reason/Comments: severe Depression and conversion Disorder Do you want consulting provider notified?: Yes Primary care physician: Jason Morgan [place] Hospital Course: HISTORY OF PRESENT ILLNESS: This is a 34-year-old female who presented to the emergency department via EMS from [facility] where she has no PCP in the outpatient setting but has been followed by Dr. Morgan while in rehab with reports of uncontrolled hypertension and volume overload. Patient also with concerns of stroke with 3 days of ongoing headache and woke up again this morning from a sleep having weakness in her right arm and leg as well as some numbness on the side of her face. Patient reports she has been having difficulty with controlling her blood pressure and was recently started on clonidine patch although reports to having some itching and feels it is related to the patch. Patient with significant past medical history of CVA, insulin-dependent diabetes, GERD, hypertension, renal disease, seizure disorder, thyroid disorder, gastroparesis, maintained on hemodialysis Wednesday although also receiving another day of dialysis weekly and patient is currently awaiting a kidney and pancreas transplant. Patient also with significant history of anxiety and depression is a former smoker and used to use large amounts of marijuana and methamphetamine. Patient currently maintained on Cleviprex drip and awaiting an ICU bed. Will discontinue Cleviprex and add hydralazine orally as well as IV as needed. Labs reviewed revealed a mildly elevated white count of 15.3, hemoglobin is 10, platelets are 445, sodium is 134 with a potassium of 4.8, BUN is 25 and creatinine is 3.97. Blood sugars were in the 2-3 100s, troponin was negative. Chest x-ray revealed mild bilateral central edema that remains present for fluid overload. CT brain showing no acute intracranial hemorrhage mass effect or midline shift noted. CT angio shows no significant vascular abnormality noted with small bilateral pleural effusions partially imaged. EKG with sinus rhythm 02/21/2024: Continue to have significant epistaxis: Continue to be on IV medication to lower her blood pressure which will be changed completely to oral medication still having significant shortness of breath require dialysis more often, blood pressure still fluctuating slight better. Patient is still having significant neuro loss consistent with worsening pressure behind both eyes along with confusion and slightly change with weakness in the right side along with mild aphasia. 02/22/2024: Her nosebleed had stopped completely after receiving 1 dose of IV DDAVP per nephrology. Her right-sided weakness has resolved completely. Urgent hypertension continue to be a problem patient remain of clonidine patch but will titrate clonidine up to 2.3 mg 3 times a day, hydralazine up to 160 mg 3 times a day, also will switch her beta-stephanie by tomorrow from Coreg to labetalol 200 mg 3 times a day. If that does not settle the blood pressure seen by patient has done very well with the clonidine patch will put her back on clonidine patch as of tomorrow. Continue dialysis, patient has slightly more congestion with her sinus behind her eyes but exclude possibility of any sinus infection sinus CAT scan will be done. Also repeat thyroid testing. Blood sugar is much better for daytime but nighttime patient does so many snack because of blood pressure to be quite bit high after supper. Neurology standpoint had review her testing including MRI of the brain without contrast did not show any sign of stroke or ischemic change, even offering patient to go for lumbar puncture She refused to go off Plavix and prepare for that purpose, transesophageal echocardiogram and traffic monitor specialist were done early, CT of the neck showed no significant blockage, patient A1c and lipid panel has been done recently, with everything else neurology has recommended psychiatry consultation to exclude out possibility of underlying psych problem probably to follow-up as an outpatient and prepare for her transplant as she become closer to in the future. Patient improving to some degree hoping to be able to let her probably go back to [facility] in the next 24 hours. 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 Patient blood pressure has been much better finally still fluctuating but with adjustment of medication including higher labetalol up to 200 mg twice a day hydralazine 150 mg twice a day and might have to go back on the clonidine patch at this point. She is well adjusted with dialysis and her discomfort around the sinus has been better sinus CAT scan was negative. Patient still doing physical therapy and has been doing better than when prepare hopefully for getting her back to SNF as soon as her preauthorization approved. 02/24/2024: Patient is feeling slightly better, started having nosebleed again, her blood pressure still slightly bit elevated was started on minoxidil 2.5 mg by nephrology and does be titrated possibly up to 5 mg can be used up to twice a day if blood pressure still high. Patient might be due for dialysis today or tomorrow and still trying to do preauthorization for getting patient back to SNF. No further study or testing need to be done for neurology, her anemia has been stable. Patient is not having any chest pain or tightness. Still complaining of generalized body pain and ache and kept complaining about side effect of her clonidine patch which patient remain off at this point. Expect hopefully discharge back to SNF tomorrow. 02/25/2024: Patient was not prepared to be discharged today and continue to have significant fluctuation of blood pressure but has been doing much better on minoxidil at this point. Also continue to have slight nosebleed despite the use of DDAVP, ENT consultation was requested again the patient hopefully will be seen ENT for packing today. With current management and patient not feeling well her discharge might be delayed at least next 24 hours and may be on the weekend, continue to have slight shortness of breath will require dialysis today when she is due for hemodialysis tomorrow as well. Her blood sugar is doing slightly better at this point. REVIEW OF SYSTEMS: CONSTITUTIONAL: Well-developed mild respiratory distress, wearing BiPAP. EYES: No icterus sclerae, no conjunctivitis. EARS, NOSE, MOUTH, THROAT, and FACE: No sore throat, lymphadenopathy, carotid bruits or deformity. RESPIRATORY: Positive shortness of breath cough and wheezes. CARDIOVASCULAR: Positive PND orthopnea and palpitation no angina. GASTROINTESTINAL: No Abd pain, Nausea or vomiting, no Diarrhea or constipation, No GI Bleed, no distention or masses. GENITOURINARY: Negative for Hematuria or UTI, no kidney stones. INTEGUMENT/BREAST: Negative for any muscular injury with mild osteoarthritis.. HEMATOLOGIC/LYMPHATIC: Negative for bleed or purpura. MUSCULOSKELTAL: Negative for Myalgia or arthralgia. NEURLOGICAL: No LOC, Sz or syncope, blurred vision dizziness or abnormality.. BEHAVIORAL/PSYCH: Negative. ENDOCRINE: Negative. PHYSICAL EXAMINATION: General Appearance: Alert, cooperative, slightly distressed looks older than her age. Neck HEENT: Supple, no lymphadenopathy, no thyroid enlargement, no carotid bruits. Lungs: Decreased breath sound bilaterally with fine rhonchi positive crackles and wheezes in both lung armendariz. Chest Wall: Decreased expansion with deep inspiration no tenderness and no deformity was found on exam, no costochondral pain or discomfort. Heart: Regular rate and rhythm, S1, S2 positive tachycardia , no murmur, rub or gallop. Back: Symmetric, no curvature, ROM normal, no CVA tenderness. Abdomen: Soft, non-tender, bowel sounds active all four quadrants, no masses, no organomegaly. Extremities: Extremities normal, atraumatic, no cyanosis trace edema. Pulses: 2+ and symmetric. Skin: Skin color, texture, tugor normal, no rashes or lesions. Neurologic: Alert oriented x3 cranial nerves II through XII intact, no motor deficit, no abnormal balance or gait. ASSESSMENT AND PLAN: _CVA with right-sided weakness: MRI of the brain is negative so far, neurology has finished their investigation and believe with review of her MRI there is no evidence for stroke or ischemic change. May be although this is more hypoperfusion related to fluid overload and with patient is going to dialysis causing her symptoms. _Acute hypertensive urgency with hypertensive encephalopathy: Continue to adjust blood pressure medication on daily basis try to get her systolic below 140. She was started on minoxidil 2.5 mg which made a huge difference on the blood pressure and nephrology adjusted her medication she is to hold hydralazine if her systolic blood pressure is running below 120. _End-stage renal disease on hemodialysis patient has done much better when dialysis switched to do Wednesday then and Wednesday she is having dialysis today and her next hemodialysis will be done on Wednesday. _ Cervical radiculopathy will continue with oral Decadron for a short course as well as continue with [place]. Symptoms are slightly better. _Volume overload with bilateral pleural effusions: Most likely diastolic congestive heart failure from dialysis patient is doing dialysis regularly 4 days a week currently. _Severe dyspnea and shortness of breath mostly from fluid overload related to her dialysis symptoms are much better lately. _Acute on chronic hypoxic respiratory failure secondary to continued volume overload, patient reports has been wearing oxygen at [facility] continuously since last admission. _Epistaxis: Patient had another dose of DDAVP and seen ENT Dr. Liao end up having nasal clamp will be sent with her to [facility] also had Afrin nasal spray to use 2 spray every 5 minutes till the bleeding stopped if it happened. Patient had no further bleeding today. _Type 1 diabetes: Levemir was changed to 15 units twice a day and NovoLog 7 units AC breakfast and lunch 10 AC dinner. Blood sugar still fluctuating slightly but worsening at nighttime from her snack mostly. Blood sugar has been better so far. _Severe depression: The patient was seen by psych and switch to Zoloft, combined with trazodone and alprazolam 0.5 mg twice a day also the use of Vistaril on as- needed basis. _Severe iron deficiency anemia: Continue Arenesp along with iron infusion hemoglobin still running above 7 no need for transfusion. _Gastroparesis: She is doing slightly better with the combination of pantoprazole and Reglan. _Hyperlipidemia: Remain on atorvastatin 40 mg a day. _Hypothyroidism: Continue levothyroxine 175 mcg daily. _Seizure: With no seizure activity lately continue Depakote ER 500 mg twice a day. _Chronic pain syndrome: Plain related to lower back pain and recurrent neuropathy pain. Still on hydrocodone 7.5 mg every 6 hours combined with Fioricet and Tylenol. CODE STATUS: Full code. Prognosis: Guarded. Discharge planning: Patient will be transferred to SNF anytime in the next 48 hours. 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 Patient mated to the emergency department at [facility] her workup at the time with negative CAT scan of the brain that she was required with fluid overload and central edema. CT angiogram of the brain did not show any abnormality, chest x-ray showed bilateral pleural effusion at the time. Patient was hospitalized continue to have quite bit high blood pressure at the time and medication were adjusted by changing her clonidine patch and start titrating her hydralazine along with beta-stephanie and nifedipine. Blood pressure continues to be quite bit elevated required to use minoxidil to keep it under control. Patient ended up having an episode of nosebleed twice required the use of DDAVP to control her symptoms. Part of the workup for her stroke including MRI of the brain along with transesophageal echocardiogram and ongoing workup by nephrology and neurology in the upcoming completely negative for any major finding and or abnormality. Patient continue require dialysis at least 4 times a week which seems to do well with it finally. Neurology had signed this event as not stroke related with no finding consistent with any abnormality sustainable to see recent stroke. Advised to have patient seen by psychiatry. Patient was seen by psychiatry and changing her medication and keep her on counseling on more regular basis will be more helpful. Her medication was changed to larger dose of Zoloft 100 mg combined with alprazolam 0.5 mg and trazodone 50 to 100 mg at bedtime along with Vistaril on as-needed basis. Patient blood pressure finally is better controlled since adding minoxidil and taking her off clonidine patch completely she is on 400 mg of labetalol twice a day at this point still on hydralazine 150 mg twice a day and nifedipine 60 mg twice a day as well. Her blood sugar slightly with better control on combination of Levemir 15 to 20 units a.m. and p.m. along with 7 to 10 units of NovoLog AC meals plus sliding scale. Patient was told that to watch her impulsive habit of snacking at nighttime specially with salt and sweet causing her problem with some of the flash pu lmonary edema and fluid overload also to comply little bit with diabetic diet for better health and lower the odds of having hypo-/hyperglycemic episode and event. Patient did not like the confrontation to improve her comorbidity as she is going into end-stage renal failure and multi visit to the emergency room and hospitalization could be avoided by better diet and more compliant with medication. Also patient decided to change primary care physician to have Dr. Ayon take over her care when she goes back to [facility]. Awaiting for the last step of her preauthorization which should be done today patient will be transferred back to [facility] hopefully today. Time spent on discharging patient was 47 minutes. Patient Condition at Discharge: Serious Plan - Discharge Summary Discharge Rx Participant: No New Discharge Prescriptions: New cloNIDine HCL [Catapres] 0.3 mg PO TID tab traZODone HCL [Desyrel] 50 mg PO HS tab Butalb/APAP/Caff 50-325-40Mg [Fioricet 50-325-40] 1 each PO Q4HR PRN #20 tab PRN Reason: Headache minoxidiL [Loniten] 2.5 mg PO DAILY tab HYDROcodone/APAP 7.5-325MG [[place] 7.5-325] 1 each PO Q8HR PRN #12 tab PRN Reason: Pain ARIPiprazole [Abilify] 5 mg PO DAILY tab hydrALAZINE HCL [Apresoline] 150 mg PO TID tab Darbepoetin Artur [Aranesp] 40 mcg SQ Q7D each Baclofen [Lioresal] 10 mg PO TID PRN tab PRN Reason: Muscle Spasm Melatonin 1 mg PO HS tab Labetalol [Trandate] 400 mg PO BID tab ALPRAZolam [Xanax] 0.5 mg PO BID PRN #20 tab PRN Reason: Anxiety Continue Sertraline [Zoloft] 200 mg PO DAILY@0800 [place] Caps 1 cap PO HS@2100 Atorvastatin [Lipitor] 40 mg PO HS@2100 methocarbamoL [Robaxin-750] 750 mg PO QID@06,12,17,21 Ondansetron [Zofran] 4 mg PO Q8HR PRN PRN Reason: Nausea And Vomiting bisacodyL [Dulcolax] 10 mg RECTAL DAILY PRN PRN Reason: Constipation Magnesium Hydroxide [Milk of Magnesia Concentrate] 7,200 mg PO DAILY PRN PRN Reason: Constipation NIFEdipine XL [Procardia XL] 60 mg PO BID@0800,1700 Torsemide [Demadex] 40 mg PO DAILY@0800 Lidocaine 4% Patch 1 patch TOPICAL DAILY@0800 Ipratropium-Albuterol Nebulize [Duoneb 0.5 mg-3 mg/3 ml Soln] 3 ml INHALATION RT-TID PRN each PRN Reason: Shortness Of Breath Or Wheezing Metoclopramide [Reglan] 5 mg PO AC-TID tab Biotene Dry Mouth/Throat 10 ml PO BID PRN PRN Reason: DRY MOUTH/THROAT Acetaminophen [Tylenol] 650 mg PO Q4H PRN PRN Reason: Pain Or Fever > 100.5 INSULIN ASPART (NovoLOG) [NovoLOG (formulary)] See Protocol SQ ACHS INSULIN ASPART (NovoLOG) [NovoLOG (formulary)] 7 unit SQ AC-BID@0700,1200 Insulin Detemir (Levemir) [Levemir] 20 unit SQ DAILY Levothyroxine Sodium [Synthroid] 175 mcg PO DAILY@0600 Divalproex ER [Depakote ER] 500 mg PO BID@0800,1700 Pantoprazole [Protonix] 40 mg PO DAILY@0600 Menthol [Biofreeze] 1 applic TOPICAL BID PRN PRN Reason: Pain Sevelamer [Renvela] 1,600 mg PO AC-TID@07,11,1630 Docusate [Colace] 100 mg PO DAILY@0800 Aspirin 81 mg PO DAILY@0800 Isosorbide Mononitrate ER [Imdur] 30 mg PO DAILY tab polyethylene glycoL 3350 [Miralax] 17 gm PO AC-LUNCH #527 gm INSULIN ASPART (NovoLOG) [NovoLOG (formulary)] 10 unit SQ AC-SUPPER each Insulin Detemir (Levemir) [Levemir] 12 unit SQ HS Discontinued hydrALAZINE HCL [Apresoline] 100 mg PO TID@0600,1400,2200 cloNIDine 0.3 MG/24HR PATCH [Catapres-TTS] 1 patch TRANSDERM MO Na Phos,M-B/Na Phos,Di-Ba [Fleet Adult] 133 ml RECTAL DAILY PRN PRN Reason: Constipation carvediloL [Coreg] 25 mg PO BID@0600,1700 HYDROcodone/APAP 5-325MG [[place] 5-325] 1 tab PO Q8H PRN #20 tab PRN Reason: Pain ALPRAZolam [Xanax] 0.25 mg PO QID PRN #60 tab PRN Reason: Anxiety Discharge Medication List Levothyroxine Sodium [Synthroid] 175 mcg PO DAILY@0610/22/23 [History] Sertraline [Zoloft] 200 mg PO DAILY@0810/22/23 [History] Atorvastatin [Lipitor] 40 mg PO HS@209912/27/23 [History] Divalproex ER [Depakote ER] 500 mg PO BID@0800,1700 12/27/23 [History] Ondansetron [Zofran] 4 mg PO Q8HR PRN 12/27/23 [History] Pantoprazole [Protonix] 40 mg PO DAILY@59912/27/23 [History] [place] Caps 1 cap PO HS@209912/27/23 [History] methocarbamoL [Robaxin-750] 750 mg PO QID@06,12,17,21 12/27/23 [History] Aspirin 81 mg PO DAILY@0802/05/24 [History] Docusate [Colace] 100 mg PO DAILY@79902/05/24 [History] Lidocaine 4% Patch 1 patch TOPICAL DAILY@0802/05/24 [History] Magnesium Hydroxide [Milk of Magnesia Concentrate] 7,200 mg PO DAILY PRN 02/05/24 [History] Menthol [Biofreeze] 1 applic TOPICAL BID PRN 02/05/24 [History] NIFEdipine XL [Procardia XL] 60 mg PO BID@0800,1700 02/05/24 [History] Sevelamer [Renvela] 1,600 mg PO AC-TID@07,11,1630 02/05/24 [History] Torsemide [Demadex] 40 mg PO DAILY@0802/05/24 [History] bisacodyL [Dulcolax] 10 mg RECTAL DAILY PRN 02/05/24 [History] INSULIN ASPART (NovoLOG) [NovoLOG (formulary)] 10 unit SQ AC-SUPPER each 02/14/24 [Rx] Ipratropium-Albuterol Nebulize [Duoneb 0.5 mg-3 mg/3 ml Soln] 3 ml INHALATION RT-TID PRN each 02/14/24 [Rx] Isosorbide Mononitrate ER [Imdur] 30 mg PO DAILY tab 02/14/24 [Rx] Metoclopramide [Reglan] 5 mg PO AC-TID tab 02/14/24 [Rx] polyethylene glycoL 3350 [Miralax] 17 gm PO AC-LUNCH #527 gm 02/14/24 [Rx] Acetaminophen [Tylenol] 650 mg PO Q4H PRN 02/18/24 [History] Biotene Dry Mouth/Throat 10 ml PO BID PRN 02/18/24 [History] INSULIN ASPART (NovoLOG) [NovoLOG (formulary)] 7 unit SQ AC-BID@0700,1200 02/18/24 [History] INSULIN ASPART (NovoLOG) [NovoLOG (formulary)] See Protocol SQ ACHS 02/18/24 [History] Insulin Detemir (Levemir) [Levemir] 12 unit SQ HS 02/18/24 [History] Insulin Detemir (Levemir) [Levemir] 20 unit SQ DAILY 02/18/24 [History] ALPRAZolam [Xanax] 0.5 mg PO BID PRN #20 tab 02/25/24 [Rx] ARIPiprazole [Abilify] 5 mg PO DAILY tab 02/25/24 [Rx] Baclofen [Lioresal] 10 mg PO TID PRN tab 02/25/24 [Rx] Butalb/APAP/Caff 50-325-40Mg [Fioricet 50-325-40] 1 each PO Q4HR PRN #20 tab 02/25/24 [Rx] Darbepoetin Artur [Aranesp] 40 mcg SQ Q7D each 02/25/24 [Rx] HYDROcodone/APAP 7.5-325MG [[place] 7.5-325] 1 each PO Q8HR PRN #12 tab 02/25/24 [Rx] Labetalol [Trandate] 400 mg PO BID tab 02/25/24 [Rx] Melatonin 1 mg PO HS tab 02/25/24 [Rx] cloNIDine HCL [Catapres] 0.3 mg PO TID tab 02/25/24 [Rx] hydrALAZINE HCL [Apresoline] 150 mg PO TID tab 02/25/24 [Rx] minoxidiL [Loniten] 2.5 mg PO DAILY tab 02/25/24 [Rx] traZODone HCL [Desyrel] 50 mg PO HS tab 02/25/24 [Rx] Follow up Appointment(s)/Referral(s): Charlene Lim MD [STAFF PHYSICIAN] - 1 Week Rambo Ayon MD [STAFF PHYSICIAN] - 1 Week Discharge Disposition: TRANSFER TO SNF/ECF
--- NOTE | 2024-02-25 11:16 | P.PN ---
Subjective Patient is seen in follow-up for end-stage renal disease. She is maintained on hemodialysis on Wednesday schedule. Tolerating dialysis well. Nosebleed improved but is now coughing up blood. Vital signs are stable. General: No acute distress. HEENT: Head exam is unremarkable. LUNGS: No audible rhonchi or wheezes. HEART: Rate and Rhythm are regular. ABDOMEN: Nontender. EXTREMITITES: No edema. Objective - Vital Signs Vital signs: Vital Signs Temp 98.3 F 02/25/24 07:34 Pulse 86 02/25/24 07:34 Resp 12 02/25/24 07:34 BP 151/82 02/25/24 07:34 Pulse Ox 96 02/25/24 07:34 FiO2 Intake & Output 02/24/24 02/25/24 02/25/24 18:59 06:59 18:59 Intake Total 640 240 240 Output Total 3900 100 Balance -3260 140 240 Weight 74.2 kg Intake: Oral 240 240 240 Hemodialysis 400 Output: Urine 100 Hemodialysis 3900 Other: Voiding Method Toilet Toilet # Voids 1 1 - Labs CBC & Chem 7: 02/24/24 08:44 02/24/24 08:44 Labs: Abnormal Lab Results - Last 24 Hours (Table) 02/24/24 02/24/24 02/24/24 Range/Units 11:34 16:32 19:55 POC Glucose (mg/dL) 251 H 329 H 265 H (70-110) mg/dL Assessment and Plan Plan: Assessment: 1. End-stage renal disease maintained on hemodialysis on Wednesday schedule. 2. Hypertension with chronic kidney disease. Better controlled. 3. Diabetes mellitus. 4. Anemia of chronic kidney disease. On Aranesp. Iron replete. 5. Chronic kidney disease mineral bone disease maintained on Renvela. 6. Volume overload. Improved with ultrafiltration. 7. Right-sided weakness. Improved. CT of the brain and CTA negative. 8. Diabetic gastroparesis. Plan: Currently seen while undergoing hemodialysis. Another treatment tomorrow. Repeat IV DDAVP x 1 today. Check complements, ANCA titers and anti-GBM antibody.
[2024-02-25 11:31] LABS: Glucose,Whole Blood 135 mg/dL (70-110)
[2024-02-25] MEDS: OXYMETAZOLINE 0.05% NASL SPRAY 1 SPRAY BOTTLE NASAL SCH ×2 (12:47→20:31)
[2024-02-25] MEDS: DESMOPRESSIN ACETATE 22 MCG in SODIUM CHLORIDE 0.9% 50 ML IVPB ONE (12:48)
--- NOTE | 2024-02-25 14:28 | XR ---
EXAMINATION TYPE: XR chest 1V DATE OF EXAM: 02/25/2024 COMPARISON: 02/18/2024 HISTORY: Chest pain TECHNIQUE: Single frontal view of the chest is obtained. FINDINGS: There is pulmonary venous congestion with interstitial edema. Overall appearance is improved from frances or study. Cardiomegaly is unchanged. The cardiac silhouette size is within normal limits. The osseous structures are intact. IMPRESSION: 1. There is pulmonary venous congestion with interstitial edema. Overall appearance is improved from prior study.
--- NOTE | 2024-02-25 14:45 | P.PN ---
Subjective Progress Note Date: 02/25/24 This is a 34-year-old female with a history of multiple medical problems, who was seen in the emergency department, trauma room #1. The patient was admitted with a diagnosis of hypertensive emergency. Her blood pressure was well over 200 systolic. The patient was started on Cleviprex, and is currently on Cleviprex at 7 mg an hour. She is getting oxygen at 3 L by nasal cannula. [address] of the brain was negative for anything acute, and angiography CT, was also negative. The patient was brought in from [facility]. The patient was recently in the hospital, on February 04, for fluid overload, hypoxemic respiratory failure, end-stage renal disease, hyperkalemia, anemia of chronic disease, diabetes, recent CVA with right-sided weakness, and optic neuritis. The patient is very lethargic today in the emergency department. White count 15.3, hemoglobin 10, hematocrit 30.5, platelet count 445,000. Sodium 134, potassium 4.8, chloride 93, CO2 34, BUN 25, and creatinine 3.97. Glucose is 287. ALT is 40. Troponin less than 0.012. Albumin 3.8. Chest x-ray shows fluid overload. Progress note dated February 19, 2024. This is a 34-year-old female with a history of end-stage renal disease, who was seen in the emergency department yesterday, with hypertensive emergency, and hypertensive encephalopathy. In the emergency department, the patient was on Cleviprex for blood pressure support. Currently, she is seen in room 365. She is feeling better. She is on 3 L of oxygen. She is not receiving any IV fluids. Obviously, because she is on the floor, she is no longer on Cleviprex. White count is 13.9, hemoglobin 9, hematocrit 26.6, platelet count 351,000. Sodium 130, potassium 5, chloride 73, CO2 28, BUN 31, and creatinine 3.98. Glucose is 263. Albumin is 3.1. Progress note dated February 20, 2024. The patient is seen today in room 365. She is currently on room air. She is not receiving any IV fluids. Unfortunately, the patient developed some epistaxis, and has been having issues with bleeding from the left nostril, since last night. Other than that, she is doing reasonably well. No new labs today other than a glucose of 243. On today's evaluation of 02/21/2024, the patient is being seen for a follow-up. The patient is on room air oxygen. The active issue for now remains elevated blood pressure. Earlier this morning, the patient's blood pressure was as high as 181/100. Clonidine was added to the regimen and the patient is currently on clonidine 0.2 mg p.o. 3 times daily. She is also on nifedipine 60 mg p.o. twice daily Imdur 30 mg p.o. daily hydralazine 100 mg p.o. 3 times daily and Coreg 25 mg p.o. twice a day. Noted blood pressure subsequently improved. She is having episodes of tach epistaxis. The nostril is currently packed and the patient is awaiting ENT evaluation. Today is a dialysis day for this patient. The white cell count of 15 with a hemoglobin 8.9 and a platelet count of 315. BUN is 35 with a creatinine of 5 and a sodium levels at 133. The patient is currently on room air oxygen with a pulse ox of 95%. No altered mentation at this point in time and she is fully alert and awake and communicating. On 02/22/2024, the patient is being seen for a follow-up. Blood pressure remains elevated and modification of blood pressure medication was done and the patient's clonidine dose has been increased 2.3 mg p.o. 3 times daily and this is in combination with Coreg 25 mg p.o. twice a day and the patient is also on hydralazine 150 mg p.o. 3 times daily and Procardia 60 mg p.o. twice a day. The patient has no active epistaxis at this point in time. Most recent BP is down to 163/94. She was on room air oxygen with a pulse ox of 97%. During her dialysis, patient was placed on oxygen. No encephalopathy. She is communicating. No headache. No focal neurological deficit at this point in time. No chest pain. On today's evaluation of 02/23/2024, the patient is being seen for a follow-up. BP is under better control on today's evaluation. Her most recent BP is around 165/95. Blood pressure is being monitored very closely. She underwent hemodialysis yesterday. No plans for hemodialysis today. No altered mentation. No chest pain. No shortness of breath. Her current blood pressure Medication coverage includes clonidine 0.3 mg p.o. 3 times daily, hydralazine 150 mg p.o. 3 times daily, labetalol 200 mg p.o. twice daily, minoxidil 2.5 mg p.o. daily, and Procardia 60 mg p.o. twice a day. On 02/24/2024, the patient is being seen for a follow-up. Morning blood pressure was again elevated. The patient is having recurrent epistaxis. At the same time, the patient is undergoing hemodialysis today. Blood pressure control has become an ongoing issue for this patient. She is on a combination of antihypertensive medication. She is currently on clonidine 0.3 mg 3 times daily, hydralazine 150 mg 3 times daily, labetalol and a dose has been increased up to 400 mg p.o. twice daily, Procardia 60 mg p.o. twice daily and minoxidil 2.5 mg p.o. daily. WBC count is 12.5, hemoglobin 8.8 and platelet count is at 188. Sodium is at 132, BUN 37 with a creatinine of 4.6. She remains on aspirin and Plavix. Nephrology on the case. On today's evaluation of 02/25/2024, the patient's blood pressure control is improved considerably. Her left nostril is still packed. No altered mentation. Undergoing hemodialysis periodically and her last dialysis was yesterday. Nephrology on the case.. No focal neurological deficits. No new labs are available from today. She is currently on room air oxygen. Objective - Vital Signs Vital signs: Vital Signs Temp 98.3 F 02/25/24 07:34 Pulse 86 02/25/24 07:34 Resp 12 02/25/24 07:34 BP 151/82 02/25/24 07:34 Pulse Ox 96 02/25/24 07:34 FiO2 Intake & Output 02/24/24 02/25/24 02/25/24 18:59 06:59 18:59 Intake Total 640 240 240 Output Total 3900 100 Balance -3260 140 240 Weight 74.2 kg Intake: Oral 240 240 240 Hemodialysis 400 Output: Urine 100 Hemodialysis 3900 Other: Voiding Method Toilet Toilet # Voids 1 1 - Exam No acute distress, awake and alert, currently on room air. The patient is nostril is packed due to recurrent epistaxis. No signs of any respiratory distress at this point in time. HEENT examination is grossly unremarkable. Mucous membranes are moist. No oral lesions. Bleeding from left nostril. Most of the blood is dried, and dark. Neck supple. Full range of motion. No adenopathy thyromegaly or neck vein distention. Cardiovascular examination reveals regular rhythm rate. S1-S2 normal. No S3 or S4. No discernible murmur noted. Lungs reveal diffuse crackles. Breath sounds are equal bilaterally. No rhonchi. No wheezes. Breath Sounds Are Improved. Breath sounds equal bilaterally. Abdomen soft bowel sounds are heard. No masses or tenderness. Extremities are intact. No cyanosis clubbing or edema. Skin is without rash or lesion. Neurologic examination reveals the patient to be more awake and alert. - Labs CBC & Chem 7: 02/24/24 08:44 02/24/24 08:44 Labs: Abnormal Lab Results - Last 24 Hours (Table) 02/24/24 02/24/24 02/24/24 Range/Units 11:34 16:32 19:55 POC Glucose (mg/dL) 251 H 329 H 265 H (70-110) mg/dL Assessment and Plan Plan: Acute hypertensive urgency, with hypertensive encephalopathy, and mental status changes. Continues to have elevated blood pressure. Adjustments of the medications being done on a daily basis. Having episodes of epistaxis related to elevated blood pressure. The patient also on a combination of aspirin and Plavix. The patient has a better blood pressure control at this point in time. Recent admission, in January 2024, for hypoxemic respiratory failure, and fluid overload. History of end-stage renal disease, currently on hemodialysis. Anemia of chronic disease. Diabetes mellitus. Recent CVA with right-sided weakness. History of optic neuritis. Epistaxis, probably related to her poorly controlled blood pressure. The patient was taken off the Plavix. Plan: Continue blood pressure management Labetalol 400 mg p.o. twice a day Clonidine 0.3 mg 3 times daily Procardia 60 mg p.o. twice daily Coreg 25 mg p.o. twice daily Hydralazine 150 mg 3 times daily Minoxidil 2.5 mg p.o. daily Patient underwent hemodialysis yesterday. No signs of encephalopathy The nasal packing is being performed in regards to her epistaxis. Pulmonary critical care services will sign off.
[2024-02-25 16:38] LABS: Glucose,Whole Blood 179 mg/dL (70-110)
[2024-02-25 17:29] LABS: Anti-DNA, DS unit <1.0 IU/mL; DNA Double-Stranded Negative (Negative)
[2024-02-25 20:22] LABS: Glucose,Whole Blood 303 mg/dL (70-110)
--- NOTE | 2024-02-25 20:42 | CONS ---
CONSULTATION REASON FOR CONSULTATION: Left-sided epistaxis. HISTORY OF PRESENT ILLNESS: The patient is a pleasant 34-year-old female, who was admitted to [facility] for evaluation and treatment of severe hypertensive emergency, CVA, and possible encephalopathy. I saw this patient on 02/25/2024. The patient states that since she has been hospitalized, she started having intermittent episodes of nosebleeds. Prior to her admission to the hospital, she did not have a history of having recurrent nosebleed. The patient is a nonsmoker, but admits to having used illegal drugs. The patient states that she has in the past snorted crystal meth. She quit approximately 1-1/2 years ago and has not used any illegal drugs since that time. At the time that she was seen in the emergency room, her blood pressure was over 220 systolic and she was confused and having issues with left-sided numbness. It was felt that the patient might possibly be experiencing a CVA and because of her confusion, it was felt she may also be experiencing encephalopathy. The patient was subsequently admitted to the hospital for evaluation and treatment of these disorders and the appropriate consultations were obtained. The patient is known to have end-stage renal disease and is currently on dialysis. In addition, she is currently on a 1 year waiting list for a double kidney and pancreas transplant. So far, she has not been upgraded on this list because of her other medical issues. I was consulted earlier today because of the patient having a several day history of intermittent minor nose bleeding on the left side. I advised the nursing staff that they may use cotton to pack her nose, but did not use gauze or tissue paper. In addition to this, I had them initiate starting Afrin nasal spray 2 puffs the left nostril twice daily. At the time that I saw the patient in her room, she was not having any active bleeding. PAST MEDICAL HISTORY: Reveals she has allergies to Dilaudid, tramadol, Motrin, and honey bee venom. MEDICATIONS: She is on multiple medications at home because of her end-stage renal disease and diabetes. Her medications include: 1. Zofran. 2. NovoLog insulin. 3. DuoNeb nebulizer. 4. Albuterol. 5. Robaxin. 6. Renvela. 7. Reglan. 8. Procardia XL. 9. Depakote. 10.[place] Caps. 11.Protonix. 12.Zoloft. 13.Demadex. 14.Synthroid. 15.MiraLAX. 16.Lipitor. 17.Levemir. 18.Imdur. 19.Desyrel. 20.Xanax. 21.Abilify. 22.Loniten. 23.Apresoline. 24.Catapres. 25.Trandate. 26.Aranesp. 27.Fioricet. 28.Lioresal. REVIEW OF SYSTEMS: CARDIOVASCULAR: Positive for hypertension. GASTROINTESTINAL: Positive for GERD, gastroesophageal reflux disorder. METABOLIC/ENDOCRINE: Positive for type 1 diabetes mellitus and hypothyroidism. MUSCULOSKELETAL: Positive for osteoarthritis. UROLOGICAL SYSTEM: Positive for end-stage renal disease. Remainder of the review of systems is essentially unremarkable. PHYSICAL EXAMINATION: GENERAL: This patient is a 34-year-old female, who is alert and cooperative. She is not experiencing any acute epistaxis at this time. The patient states that the bleeding is normally on the left side. HEENT: The patient is normocephalic. Tympanic membranes are normal. Middle ear spaces are free of any fluid or infection. Pupils equal, round, and reactive to light and accommodation. Extraocular movements within normal limits. Intranasal examination reveals mild septal deviation. There is an area noted of recent bleeding on the anterior/midportion of the septum. It is not actively bleeding at this time. Examination of the oropharynx reveals no evidence of any bleeding down the posterior pharyngeal wall. The remainder of the head and neck exam is essentially unremarkable. CHEST/CARDIOVASCULAR: Both lung armendariz are clear to percussion and auscultation. The patient has a regular sinus rhythm. S1 and S2 are present without evidence of any murmurs. ABDOMEN: There is no evidence any masses, megaly, or tenderness. The abdomen is soft. The remainder of physical exam is unremarkable. IMPRESSION: Left anterior-posterior epistaxis. PLAN: I have advised the nursing staff that we should avoid any type of nasal packing if possible. ENT surgeons rarely cauterize nasal bleeding nowadays. This is because the effect of the cauterization with silver nitrate is very superficial and tends not to be very effective. In addition it tends to further traumatize the the blood vessels. If the patient does have a severe nosebleed, then they might be forced to call the A-team and have them insert a Rhino-Rocket nasal balloon .. I would prefer not to insert any packing into his nose. In addition, I have advised the patient that if she feels there is anything in her nose, she should sniff it back and spit it out and thus avoid blowing her nose. Blowing her nose may disrupt any type of clot or scab formation over the bleeding site. I have ordered for the patient to have Afrin nasal spray 2 puffs in the left nostril twice daily. The patient is to continue this for least 7 days after she is discharged. She is also continue not blowing her nose for 7 days after discharge. I believe that the initiating factor for her epistaxis was the hypertensive episode combined with her being on Plavix and her end-stage renal disease. If it is possible to keep the patient off the Plavix at least for 1 week, then I think all of the bleeding will resolve. I will sign off of this patient at this time and I do not need to see her for follow-up in my office after her discharge. From an ENT standpoint, she can be discharged home at any time. I would like to take this opportunity to thank you for allowing me to assist in the care of your patient. If I could be of any further assistance, please feel free to contact my office. MMODL / IJN: [id number] / CARTER
[2024-02-26 06:06] LABS: Glucose,Whole Blood 110 mg/dL (70-110)
--- NOTE | 2024-02-26 08:21 | P.PN ---
Subjective Progress Note Date: 02/25/24 HISTORY OF PRESENT ILLNESS: This is a 34-year-old female who presented to the emergency department via EMS from [facility] where she has no PCP in the outpatient setting but has been followed by Dr. Morgan while in rehab with reports of uncontrolled hypertension and volume overload. Patient also with concerns of stroke with 3 days of ongoing headache and woke up again this morning from a sleep having weakness in her right arm and leg as well as some numbness on the side of her face. Patient reports she has been having difficulty with controlling her blood pressure and was recently started on clonidine patch although reports to having some itching and feels it is related to the patch. Patient with significant past medical history of CVA, insulin-dependent diabetes, GERD, hypertension, renal disease, seizure disorder, thyroid disorder, gastroparesis, maintained on hemodialysis Wednesday although also receiving another day of dialysis weekly and patient is currently awaiting a kidney and pancreas transplant. Patient also with significant history of anxiety and depression is a former smoker and used to use large amounts of marijuana and methamphetamine. Patient currently maintained on Cleviprex drip and awaiting an ICU bed. Will discontinue Clevi prex and add hydralazine orally as well as IV as needed. Labs reviewed revealed a mildly elevated white count of 15.3, hemoglobin is 10, platelets are 445, sodium is 134 with a potassium of 4.8, BUN is 25 and creatinine is 3.97. Blood sugars were in the 2-3 100s, troponin was negative. Chest x-ray revealed mild bilateral central edema that remains present for fluid overload. CT brain showing no acute intracranial hemorrhage mass effect or midline shift noted. CT angio shows no significant vascular abnormality noted with small bilateral pleural effusions partially imaged. EKG with sinus rhythm 02/21/2024: Continue to have significant epistaxis: Continue to be on IV medication to lower her blood pressure which will be changed completely to oral medication still having significant shortness of breath require dialysis more often, blood pressure still fluctuating slight better. Patient is still having significant neuro loss consistent with worsening pressure behind both eyes along with confusion and slightly change with weakness in the right side along with mild aphasia. 02/22/2024: Her nosebleed had stopped completely after receiving 1 dose of IV DDAVP per nephrology. Her right-sided weakness has resolved completely. Urgent hypertension continue to be a problem patient remain of clonidine patch but will titrate clonidine up to 2.3 mg 3 times a day, hydralazine up to 160 mg 3 times a day, also will switch her beta-stephanie by tomorrow from Coreg to labetalol 200 mg 3 times a day. If that does not settle the blood pressure seen by patient has done very well with the clonidine patch will put her back on clonidine patch as of tomorrow. Continue dialysis, patient has slightly more congestion with her sinus behind her eyes but exclude possibility of any sinus infection sinus CAT scan will be done. Also repeat thyroid testing. Blood sugar is much better for daytime but nighttime patient does so many snack because of blood pressure to be quite bit high after supper. Neurology standpoint had review her testing including MRI of the brain without contrast did not show any sign of stroke or ischemic change, even offering patient to go for lumbar puncture She refused to go off Plavix and prepare for that purpose, transesophageal echocardiogram and alarm security or surveillance monitor were done early, CT of the neck showed no significant blockage, patient A1c and lipid panel has been done recently, with everything else neurology has recommended psychiatry consultation to exclude out possibility of underlying psych problem probably to follow-up as an outpatient and prepare for her transplant as she become closer to in the future. Patient improving to some degree hoping to be able to let her probably go back to [facility] in the next 24 hours. 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 Patient blood pressure has been much better finally still fluctuating but with adjustment of medication including higher labetalol up to 200 mg twice a day hydralazine 150 mg twice a day and might have to go back on the clonidine patch at this point. She is well adjusted with dialysis and her discomfort around the sinus has been better sinus CAT scan was negative. Patient still doing physical therapy and has been doing better than when prepare hopefully for getting her back to SNF as soon as her preauthorization approved. 02/24/2024: Patient is feeling slightly better, started having nosebleed again, her blood pressure still slightly bit elevated was started on minoxidil 2.5 mg by nephrology and does be titrated possibly up to 5 mg can be used up to twice a day if blood pressure still high. Patient might be due for dialysis today or tomorrow and still trying to do preauthorization for getting patient back to SNF. No further study or testing need to be done for neurology, her anemia has been stable. Patient is not having any chest pain or tightness. Still complaining of generalized body pain and ache and kept complaining about side effect of her clonidine patch which patient remain off at this point. Expect hopefully discharge back to SNF tomorrow. 02/25/2024: Patient was not prepared to be discharged today and continue to have significant fluctuation of blood pressure but has been doing much better on minoxidil at this point. Also continue to have slight nosebleed despite the use of DDAVP, ENT consultation was requested again the patient hopefully will be seen ENT for packing today. With current management and patient not feeling well her discharge might be delayed at least next 24 hours and may be on the weekend, continue to have slight shortness of breath will require dialysis today when she is due for hemodialysis tomorrow as well. Her blood sugar is doing slightly better at this point. REVIEW OF SYSTEMS: CONSTITUTIONAL: Well-developed mild respiratory distress, wearing BiPAP. EYES: No icterus sclerae, no conjunctivitis. EARS, NOSE, MOUTH, THROAT, and FACE: No sore throat, lymphadenopathy, carotid bruits or deformity. RESPIRATORY: Positive shortness of breath cough and wheezes. CARDIOVASCULAR: Positive PND orthopnea and palpitation no angina. GASTROINTESTINAL: No Abd pain, Nausea or vomiting, no Diarrhea or constipation, No GI Bleed, no distention or masses. GENITOURINARY: Negative for Hematuria or UTI, no kidney stones. INTEGUMENT/BREAST: Negative for any muscular injury with mild osteoarthritis.. HEMATOLOGIC/LYMPHATIC: Negative for bleed or purpura. MUSCULOSKELTAL: Negative for Myalgia or arthralgia. NEURLOGICAL: No LOC, Sz or syncope, blurred vision dizziness or abnormality.. BEHAVIORAL/PSYCH: Negative. ENDOCRINE: Negative. PHYSICAL EXAMINATION: General Appearance: Alert, cooperative, slightly distressed looks older than her age. Neck HEENT: Supple, no lymphadenopathy, no thyroid enlargement, no carotid bruits. Lungs: Decreased breath sound bilaterally with fine rhonchi positive crackles and wheezes in both lung armendariz. Chest Wall: Decreased expansion with deep inspiration no tenderness and no deformity was found on exam, no costochondral pain or discomfort. Heart: Regular rate and rhythm, S1, S2 positive tachycardia , no murmur, rub or gallop. Back: Symmetric, no curvature, ROM normal, no CVA tenderness. Abdomen: Soft, non-tender, bowel sounds active all four quadrants, no masses, no organomegaly. Extremities: Extremities normal, atraumatic, no cyanosis trace edema. Pulses: 2+ and symmetric. Skin: Skin color, texture, tugor normal, no rashes or lesions. Neurologic: Alert oriented x3 cranial nerves II through XII intact, no motor deficit, no abnormal balance or gait. ASSESSMENT AND PLAN: _CVA with right-sided weakness: MRI of the brain is negative so far, neurology has finished their investigation and believe with review of her MRI there is no evidence for stroke or ischemic change. May be although this is more hypoperfusion related to fluid overload and with patient is going to dialysis causing her symptoms. _Acute hypertensive urgency with hypertensive encephalopathy: Seems to respond better to minoxidil may be there does need to be changed up to 5 mg. _End-stage renal disease on hemodialysis initially was done 5 days a week and recently was decreased to 3 days a week. Continue to have ultrafiltration/hemodialysis. _ Cervical radiculopathy will continue with oral Decadron for a short course as well as continue with [place]. Symptoms are slightly better. _Volume overload with bilateral pleural effusions: Most likely diastolic congestive heart failure from dialysis patient is doing dialysis regularly 4 days a week currently. _Severe dyspnea and shortness of breath mostly from fluid overload related to her dialysis symptoms are much better lately. _Acute on chronic hypoxic respiratory failure secondary to continued volume overload, patient reports has been wearing oxygen at [facility] continuously since last admission. _Epistaxis: Patient is seen ENT today she had another dose of DDAVP did not help continue packing continue conservative management. _Type 1 diabetes: Levemir was changed to 15 units twice a day and NovoLog 7 units AC breakfast and lunch 10 AC dinner. Blood sugar still fluctuating slightly but worsening at nighttime from her snack mostly. Blood sugar has been better so far. _Severe depression: The patient was seen by psych and switch to Zoloft, combined with trazodone and alprazolam 0.5 mg twice a day also the use of Vistaril on as- needed basis. _Severe iron deficiency anemia: Continue Arenesp along with iron infusion hemoglobin still running above 7 no need for transfusion. _Gastroparesis: She is doing slightly better with the combination of pantoprazole and Reglan. _Hyperlipidemia: Remain on atorvastatin 40 mg a day. _Hypothyroidism: Continue levothyroxine 175 mcg daily. _Seizure: With no seizure activity lately continue Depakote ER 500 mg twice a day. _Chronic pain syndrome: Plain related to lower back pain and recurrent neuropathy pain. Still on hydrocodone 7.5 mg every 6 hours combined with Fioricet and Tylenol. CODE STATUS: Full code. Prognosis: Guarded. Discharge planning: Still trying to get patient to transfer to care home rehab when she is ready and with the new development with continue nosebleed and patient is not feeling well her discharge will be delayed at least 24 hours. Objective - Vital Signs Vital signs: Vital Signs Temp 97.9 F 02/26/24 04:00 Pulse 90 02/26/24 04:00 Resp 17 02/26/24 04:00 BP 160/87 02/26/24 04:00 Pulse Ox 93 L 02/26/24 04:00 FiO2 Intake & Output 02/25/24 02/26/24 02/26/24 18:59 06:59 18:59 Intake Total 760 200 0 Output Total 3200 160 Balance -2440 40 0 Intake: Oral 360 200 0 Hemodialysis 400 Output: Urine 160 Hemodialysis 3200 Other: Voiding Method Toilet Toilet # Voids 1 1 - Labs CBC & Chem 7: 02/24/24 08:44 02/24/24 08:44 Labs: Abnormal Lab Results - Last 24 Hours (Table) 02/25/24 02/25/24 02/25/24 Range/Units 11:29 16:36 20:20 POC Glucose (mg/dL) 135 H 179 H 303 H (70-110) mg/dL
--- NOTE | 2024-02-26 09:55 | P.PN ---
Subjective Patient is seen in follow-up for end-stage renal disease. She is maintained on hemodialysis on Wednesday schedule. Tolerating dialysis well. Hemoptysis resolved. Blood pressure better controlled. Vital signs are stable. General: No acute distress. HEENT: Head exam is unremarkable. LUNGS: No audible rhonchi or wheezes. HEART: Rate and Rhythm are regular. ABDOMEN: Nontender. EXTREMITITES: No edema. Objective - Vital Signs Vital signs: Vital Signs Temp 97.9 F 02/26/24 04:00 Pulse 90 02/26/24 04:00 Resp 17 02/26/24 04:00 BP 160/87 02/26/24 04:00 Pulse Ox 93 L 02/26/24 04:00 FiO2 Intake & Output 02/25/24 02/26/24 02/26/24 18:59 06:59 18:59 Intake Total 760 200 0 Output Total 3200 160 Balance -2440 40 0 Intake: Oral 360 200 0 Hemodialysis 400 Output: Urine 160 Hemodialysis 3200 Other: Voiding Method Toilet Toilet # Voids 1 1 - Labs CBC & Chem 7: 02/24/24 08:44 02/24/24 08:44 Labs: Abnormal Lab Results - Last 24 Hours (Table) 02/25/24 02/25/24 02/25/24 Range/Units 11:29 16:36 20:20 POC Glucose (mg/dL) 135 H 179 H 303 H (70-110) mg/dL Assessment and Plan Plan: Assessment: 1. End-stage renal disease maintained on hemodialysis on Wednesday schedule. 2. Hypertension with chronic kidney disease. Better controlled. 3. Diabetes mellitus. 4. Anemia of chronic kidney disease. On Aranesp. Iron replete. Also received IV DDAVP this admission. 5. Chronic kidney disease mineral bone disease maintained on Renvela. 6. Volume overload. Improved with ultrafiltration. 7. Right-sided weakness. Improved. CT of the brain and CTA negative. 8. Diabetic gastroparesis. Plan: Currently seen while undergoing hemodialysis. Next treatment Wednesday. Follow-up ANCA titers and anti-GBM antibody. SELAM, double-stranded DNA antibody and complements normal. Possible discharge tomorrow today. Hydralazine to be held for systolic blood pressure less than 120.
[2024-02-26 11:26] LABS: Glucose,Whole Blood 164 mg/dL (70-110)
[2024-02-26 13:15] VITALS: PULSE 102; RESP 16; TEMP 97.6
--- NOTE | 2024-02-26 13:54 | P.PN ---
Subjective Progress Note Date: 02/26/24 Patient was seen for a follow-up. Patient was seen by Dr. Lakhwinder Thornton over the last 5 days. Please refer to his notes for details. Patient still complaining of migraine, calling at 9.5/10. She has noticed some tremors of the hands and jaw. Plavix was discontinued because of nosebleed. The last dose she received was on , 02/24/2024 at 9 AM. The symptoms on the right side have essentially resolved. No more numbness. Objective - Vital Signs Vital signs: Vital Signs Temp 97.6 F 02/26/24 12:57 Pulse 102 H 02/26/24 12:57 Resp 16 02/26/24 12:57 BP 158/92 02/26/24 12:57 Pulse Ox 91 L 02/26/24 08:00 FiO2 Intake & Output 02/25/24 02/26/24 02/26/24 18:59 06:59 18:59 Intake Total 760 200 500 Output Total 3200 160 3500 Balance -2440 40 -3000 Intake: Oral 360 200 0 Hemodialysis 400 500 Output: Urine 160 Hemodialysis 3200 3500 Other: Voiding Method Toilet Toilet Toilet # Voids 1 1 - Exam Patient is alert and awake. Speech and language functions are normal. Cranial nerves there is no facial asymmetry. Her vision remains same. Detailed vision exam deferred. - Labs CBC & Chem 7: 02/24/24 08:44 02/24/24 08:44 Labs: Abnormal Lab Results - Last 24 Hours (Table) 02/25/24 02/25/24 02/26/24 Range/Units 16:36 20:20 11:24 POC Glucose (mg/dL) 179 H 303 H 164 H (70-110) mg/dL Assessment and Plan Assessment: Acute onset of numbness and weakness of right side of the body including face arm and leg. MRI Brain and there is no acute ischemic stroke. Patient was considered not a candidate for thrombolysis because of unknown last known well, and uncontrolled blood pressure. No LVO noted on CTA.---on examination felt there is some effort related with motor strength on right side. Dr. Thornton also felt patient has a factor of psychogenic factor for her weakness. Cephalgia, and neck pain unclear cause. Possible component of hypertensive. History of chronic visual disturbance due to diabetic retinopathy, vitreous hemorrhage. And had extensive workup in past. History of small right occipital and left centrum semiovalve on previous MRI (outside) in November 2023. ESRD on dialysis since 04/21/2023 Chronic Diabetes Mellitus, with his most recent A1c 6.7 on 01/17/2024. 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 No acute intracranial process identified. I personally reviewed MRI, agree with the findings. No acute ischemic stroke. * Patient concerned about viral meningitis which she had suffered from before. Patient's Plavix was stopped 2 days ago due to nosebleed and the last dose she received was on , 02/24/2024 at 9 AM. Patient will stay off Plavix. * If the headache persists, patient can undergo lumbar puncture after 7 days of being off Plavix. This can be performed as an outpatient. Patient appears very comfortable otherwise, smiling normally, despite calling at 9.5/10 headache. * Dr. Thornton started her on Melatonin 1mg qhs which helps with headache and sleep. * Patient had a HAYDER performed 12/31/2023, which was normal. No need to repeat. * Patient underwent event monitoring from 01/03/2024 through 01/25/2024. The rhythm strip revealed sinus mechanism. No atrial fibrillation noted. No stone tricular ectopy. * CTA of head and neck revealed no significant vascular abnormality. At least small bilateral pleural effusions are partially imaged. We will defer to IM regarding pleural effusion. * Hemoglobin A1c 6.7 on 01/17/2024, well controlled * Lipid panel cholesterol 129, LDL 24, HDL 43, triglycerides 308. Continue Lipitor 40 mg. * Patient was on aspirin 81 mg daily. Plavix 75 mg daily also initiated on this admission by Dr. Severino but since has epistaxis will discontinue and she is in agreement. * Psychiatry is consulted. Recommend patient to follow-up with psychiatry as outpatient. * Patient on Protonix 40 mg daily for gastric ulcer prophylaxis. * DVT prophylaxis: On subqheparin 5000 unit every 12 hour. * PT OT, speech therapy. * Telemetry monitoring * Optimize control of blood pressure, to normotensive level. * It appears patient is being discharged home today. Recommend follow-up with neurologist within 1 week for further management of her headache.
[2024-02-26 15:09] VITALS: BP 156/92
[2024-02-28 14:24] LABS: Anti-Glomerular Basement Memb <1.5 U/mL (<7.0)
[2024-02-28 14:46] LABS: C-ANCA <1:20 Titer (<1:20)
== END 2024-02-26 15:01 | DRG 133 ==
LOC: EC 05:01 → 2SICU 07:19 → 3SCARD 18:12
PROVIDERS: ADMIT Internal Medicine Geriatric Medicine; ATTEND Internal Medicine Geriatric Medicine
PROC: 5A1D70Z Performance of Urinary Filtration, Intermittent, Less than 6 Hours Per Day (ICD-10-PCS; principal; 2024-02-18)
PROC: 05HF33Z Insertion of Infusion Device into Left Cephalic Vein, Percutaneous Approach (ICD-10-PCS; 2024-02-23 08:30)
DX: J96.21 Acute and chronic respiratory failure with hypoxia (principal); E87.70 Fluid overload, unspecified; I12.0 Hypertensive chronic kidney disease with stage 5 chronic kidney disease or end stage renal disease; I16.1 Hypertensive emergency; H54.61 Unqualified visual loss, right eye, normal vision left eye; I67.4 Hypertensive encephalopathy; E10.649 Type 1 diabetes mellitus with hypoglycemia without coma; I13.2 Hypertensive heart and chronic kidney disease with heart failure and with stage 5 chronic kidney disease, or end stage renal disease; G89.4 Chronic pain syndrome; H70.11 Chronic mastoiditis, right ear; I50.32 Chronic diastolic (congestive) heart failure; I69.351 Hemiplegia and hemiparesis following cerebral infarction affecting right dominant side; K21.9 Gastro-esophageal reflux disease without esophagitis; N18.6 End stage renal disease; R29.704 NIHSS score 4; R29.810 Facial weakness; Z99.2 Dependence on renal dialysis; K31.84 Gastroparesis; E78.5 Hyperlipidemia, unspecified; D50.9 Iron deficiency anemia, unspecified; F32.9 Major depressive disorder, single episode, unspecified; F41.9 Anxiety disorder, unspecified; D63.1 Anemia in chronic kidney disease; E03.9 Hypothyroidism, unspecified; Z79.890 Hormone replacement therapy; E10.22 Type 1 diabetes mellitus with diabetic chronic kidney disease; I16.0 Hypertensive urgency; E10.43 Type 1 diabetes mellitus with diabetic autonomic (poly)neuropathy; E87.1 Hypo-osmolality and hyponatremia; E87.5 Hyperkalemia; F15.10 Other stimulant abuse, uncomplicated; F44.9 Dissociative and conversion disorder, unspecified; G43.909 Migraine, unspecified, not intractable, without status migrainosus; G62.9 Polyneuropathy, unspecified; Z79.4 Long term (current) use of insulin; Z79.82 Long term (current) use of aspirin; Z79.899 Other long term (current) drug therapy; Z82.49 Family history of ischemic heart disease and other diseases of the circulatory system; Z87.891 Personal history of nicotine dependence; Z88.5 Allergy status to narcotic agent; G40.909 Epilepsy, unspecified, not intractable, without status epilepticus; I31.39 Other pericardial effusion (noninflammatory); I65.23 Occlusion and stenosis of bilateral carotid arteries; M89.8X9 Other specified disorders of bone, unspecified site; R53.1 Weakness; N64.3 Galactorrhea not associated with childbirth; R04.0 Epistaxis; R47.01 Aphasia; M54.12 Radiculopathy, cervical region; E10.319 Type 1 diabetes mellitus with unspecified diabetic retinopathy without macular edema; Z91.030 Bee allergy status; Z88.6 Allergy status to analgesic agent
CPT/HCPCS: 36410; 36415; 70450; 70486; 70496; 70498; 70551; 71045; 76937; 80048; 80053; 80061; 82728; 83036; 83516; 83540; 83550; 83735; 84443; 84484; 85025; 85027; 85610; 85730; 86038; 86160; 86162; 86225; 86255; 87636; 90935; 93005; 94640; 94760; 96365; 96366; 96375; 96376; 99291

== ENCOUNTER 2024-03-14 03:44 | Inpatient (IN) | payer OTHER ==
[2024-03-14 05:06] LABS: Basophils # (A) 0.1 k/uL (0-0.2); Basophils % (A) 1 %; Eosinophils # (A) 1.7 k/uL (0-0.7); Eosinophils % (A) 13 %; HCT 28.5 % (34.0-46.0); Lymphocytes # (A) 0.6 k/uL (1.0-4.8); Lymphocytes % (A) 5 %; MCH 31.9 pg (25.0-35.0); MCHC 31.7 g/dL (31.0-37.0); MCV 100.6 fL (80.0-100.0); Macrocytosis Slight; Mean Platelet Volume 8.2; Monocytes # (A) 0.7 k/uL (0-1.0); Monocytes % (A) 6 %; Neutrophils # (A) 9.5 k/uL (1.3-7.7); Neutrophils % (A) 75 %; Platelet Count 253 k/uL (150-450); RBC 2.83 m/uL (3.80-5.40); RDW 15.5 % (11.5-15.5); WBC 12.6 k/uL (3.8-10.6)
[2024-03-14 05:16] LABS: ALT 43 U/L (4-34); AST 25 U/L (14-36); African American GFR (CKD) 16 (>60 ml/min/1.73 sqM); Albumin 4.2 g/dL (3.5-5.0); Alkaline Phosphatase 124 U/L (38-126); Anion Gap 7 mmol/L; Blood Urea Nitrogen 37 mg/dL (7-17); Calcium 9.2 mg/dL (8.4-10.2); Carbon Dioxide 36 mmol/L (22-30); Chloride 96 mmol/L (98-107); Glucose 181 mg/dL (74-99); Magnesium 1.8 mg/dL (1.6-2.3); Non-African American GFR(CKD) 14 (>60 ml/min/1.73 sqM); Potassium 4.8 mmol/L (3.5-5.1); Sodium 139 mmol/L (137-145); Total Bilirubin 0.7 mg/dL (0.2-1.3); Total Protein 6.6 g/dL (6.3-8.2)
[2024-03-14 05:17] LABS: Partial Thromboplastin Time 25.2 sec (22.0-30.0); Prothrombin Time 10.9 sec (10.0-12.5)
[2024-03-14 05:23] LABS: NT-Pro-B-Type Natriuretic Pept 22200 pg/mL
--- NOTE | 2024-03-14 05:48 | ED ---
SOB HPI - General Chief Complaint: Shortness of Breath Stated Complaint: WAQAR Time Seen by Provider: 03/14/24 03:50 Source: EMS Mode of arrival: EMS - History of Present Illness Initial Comments: 34-year-old female with past medical history of diabetes, hypertension, end- stage renal disease on hemodialysis Wednesday, and Wednesday presents emergency department from [facility]. Patient has been wearing 2 L wall at the facility. They state that she was hypoxic and had increased work of breathing and therefore they increased her to 4 L. When EMS arrived they found her saturating 84% on the 4 L. She was then transition to a CPAP and then to a BiPAP upon arrival to our facility. Patient admits to increased swelling. She denies that she makes any urine. She denies any fevers. Was concerned that she had a low-grade fever. No other alleviating, precipitating or modifying factors - Related Data Home Medications Medication Instructions Recorded Confirmed Levothyroxine Sodium [Synthroid] 175 mcg PO DAILY@0600 10/22/23 02/18/24 Sertraline [Zoloft] 200 mg PO DAILY@0800 10/22/23 02/18/24 Atorvastatin [Lipitor] 40 mg PO HS@209912/27/23 02/18/24 Divalproex ER [Depakote ER] 500 mg PO BID@0800,1700 12/27/23 02/18/24 Ondansetron [Zofran] 4 mg PO Q8HR PRN 12/27/23 02/18/24 Pantoprazole [Protonix] 40 mg PO DAILY@0600 12/27/23 02/18/24 Augustine Caps 1 cap PO HS@209912/27/23 02/18/24 methocarbamoL [Robaxin-750] 750 mg PO QID@06,12,17,21 12/27/23 02/18/24 Aspirin 81 mg PO DAILY@0800 02/05/24 02/18/24 Docusate [Colace] 100 mg PO DAILY@0800 02/05/24 02/18/24 Lidocaine 4% Patch 1 patch TOPICAL DAILY@0800 02/05/24 02/18/24 Magnesium Hydroxide [Milk of 7,200 mg PO DAILY PRN 02/05/24 02/18/24 Magnesia Concentrate] Menthol [Biofreeze] 1 applic TOPICAL BID PRN 02/05/24 02/18/24 NIFEdipine XL [Procardia XL] 60 mg PO BID@0800,1700 02/05/24 02/18/24 Sevelamer [Renvela] 1,600 mg PO AC-TID@07,11,1630 02/05/24 02/18/24 Torsemide [Demadex] 40 mg PO DAILY@0800 02/05/24 02/18/24 bisacodyL [Dulcolax] 10 mg RECTAL DAILY PRN 02/05/24 02/18/24 Acetaminophen [Tylenol] 650 mg PO Q4H PRN 02/18/24 02/18/24 Biotene Dry Mouth/Throat 10 ml PO BID PRN 02/18/24 02/18/24 INSULIN ASPART (NovoLOG) [NovoLOG 7 unit SQ AC-BID@0700,1200 02/18/24 02/18/24 (formulary)] INSULIN ASPART (NovoLOG) [NovoLOG See Protocol SQ ACHS 02/18/24 02/18/24 (formulary)] Insulin Detemir (Levemir) [Levemir] 12 unit SQ HS 02/18/24 02/18/24 Insulin Detemir (Levemir) [Levemir] 20 unit SQ DAILY 02/18/24 02/18/24 Previous Rx's Medication Instructions Recorded INSULIN ASPART (NovoLOG) [NovoLOG 10 unit SQ AC-SUPPER each 02/14/24 (formulary)] Ipratropium-Albuterol Nebulize 3 ml INHALATION RT-TID PRN each 02/14/24 [Duoneb 0.5 mg-3 mg/3 ml Soln] Isosorbide Mononitrate ER [Imdur] 30 mg PO DAILY tab 02/14/24 Metoclopramide [Reglan] 5 mg PO AC-TID tab 02/14/24 polyethylene glycoL 3350 [Miralax] 17 gm PO AC-LUNCH #527 gm 02/14/24 ALPRAZolam [Xanax] 0.5 mg PO BID PRN #20 tab 02/25/24 ARIPiprazole [Abilify] 5 mg PO DAILY tab 02/25/24 Baclofen [Lioresal] 10 mg PO TID PRN tab 02/25/24 Butalb/APAP/Caff 50-325-40Mg 1 each PO Q4HR PRN #20 tab 02/25/24 [Fioricet 50-325-40] Darbepoetin Artur [Aranesp] 40 mcg SQ Q7D each 02/25/24 HYDROcodone/APAP 7.5-325MG [Mott 1 each PO Q8HR PRN #12 tab 02/25/24 7.5-325] Labetalol [Trandate] 400 mg PO BID tab 02/25/24 Melatonin 1 mg PO HS tab 02/25/24 cloNIDine HCL [Catapres] 0.3 mg PO TID tab 02/25/24 hydrALAZINE HCL [Apresoline] 150 mg PO TID tab 02/25/24 minoxidiL [Loniten] 2.5 mg PO DAILY tab 02/25/24 traZODone HCL [Desyrel] 50 mg PO HS tab 02/25/24 Allergies Allergy/AdvReac Type Severity Reaction Status Date / Time hydromorphone HCl Allergy Anaphylaxis Verified 03/14/24 04:01 [From Dilaudid] propoxyphene Allergy Rash/Hives Verified 03/14/24 04:01 [From Darvocet-N] tramadol Allergy Anaphylaxis Verified 03/14/24 04:01 ibuprofen [From Motrin] AdvReac unable to Verified 03/14/24 04:01 take due to kidney disease venom-honey bee AdvReac passes out Verified 03/14/24 04:01 [bee venom (honey bee)] Review of Systems ROS Statement: Those systems with pertinent positive or pertinent negative responses have been documented in the HPI. ROS Other: All systems not noted in ROS Statement are negative. Past Medical History Past Medical History: Diabetes Mellitus, GERD/Reflux, Hypertension, Renal Disease, Seizure Disorder, Thyroid Disorder Additional Past Medical History / Comment(s): Neuropathy, last seizure 2020, gastroparesis, headaches with dialysis, states "fast heart rate" since giving ., receives Hemodialysis Wednesday- and Saturdays at [facility] [place] right chest hemodialysis catheter., severe HTN. patient a waiting Kidney and Pancrease Transplant. , states sometimes she has had stroke - like symptoms but no stroke., hx of c-diff 2013. History of Any Multi-Drug Resistant Organisms: None Reported Date of last positivie culture/infection: 2013 MDRO Source:: stool Past Surgical History: Adenoidectomy, Section, Cholecystectomy, Orthopedic Surgery, Tonsillectomy Additional Past Surgical History / Comment(s): 2 KNEE SCOPES, EAR TUBES, additional left knee surgery related to fracture, new port a cath sept , eye surgeries for diabetic retinopathy. Past Anesthesia/Blood Transfusion Reactions: Previous Problems w/ Anesthesia Additional Past Anesthesia/Blood Transfusion Reaction / Comment(s): confusion Past Psychological History: Anxiety, Depression Smoking Status: Former smoker Past Alcohol Use History: None Reported Past Drug Use History: Marijuana, Methamphetamine - Past Family History Father Family Medical History: Unable to Obtain Mother Family Medical History: No Reported History Grandfather Family Medical History: Coronary Artery Disease (CAD) Additional Family Medical History / Comment(s): Diabetes mellitus type 2 General Exam Limitations: physical limitation (bipap on) General appearance: alert, in distress Eye exam: Present: normal appearance, PERRL, EOMI. Absent: scleral icterus, conjunctival injection, periorbital swelling ENT exam: Present: mucous membranes dry Respiratory exam: Present: respiratory distress, rales, accessory muscle use Cardiovascular Exam: Present: normal rhythm, tachycardia Extremities exam: Present: pedal edema Neurological exam: Present: alert, oriented X3, CN II-XII intact Psychiatric exam: Present: normal affect, normal mood Course Vital Signs 03/14/24 03/14/24 03/14/24 03:48 04:16 05:08 Temperature 99.5 F Pulse Rate 120 H Respiratory 26 H 21 Rate Blood Pressure 175/97 O2 Sat by Pulse 92 L Oximetry Fraction of 40 60 Inspired Oxygen (FIO2) 03/14/24 05:42 Temperature Pulse Rate 105 H Respiratory 21 Rate Blood Pressure 159/97 O2 Sat by Pulse 95 Oximetry Fraction of Inspired Oxygen (FIO2) - Reevaluation(s) Reevaluation #1: 03/14/24 05:[address] Morgan who states that this patient is no longer part of his practice Reevaluation #2: Spoke with Dr. Lim. She will order the patient's dialysis. We did notify dialysis. She does recommend 80 mg of Lasix x1. 03/14/24 06:58 Medical Decision Making - Medical Decision Making Was pt. sent in by a medical professional or institution (Dr., PA, P[employer]NER, urgent care, hospital, or alf...) When possible be specific @ -Patient was sent in from [facility] Did you speak to anyone other than the patient for history (EMS, parent, family, police, friend...)? What history was obtained from this source @ -Spoke with [facility] for history Did you review nursing and triage notes (agree or disagree)? Why? @ -I reviewed and agree with nursing and triage notes Were old charts reviewed (outside hosp., previous admission, EMS record, old EKG, old radiological studies, urgent care reports/EKG's, alf records)? Report findings @ -Reviewed patient's discharge summary from 25 February Differential Diagnosis (chest pain, altered mental status, abdominal pain women, abdominal pain men, vaginal bleeding, weakness, fever, dyspnea, syncope, headache, dizziness, GI bleed, back pain, seizure, CVA, palpatations, mental health, musculoskeletal)? @ -Differential Dyspnea: Coronary syndrome, arrhythmia, tamponade, asthma, COPD, pulmonary embolism, pneumonia, pneumothorax, pulmonary effusion, anaphylaxis, diabetic ketoacidosis, flailed chest, pulmonary contusion, diaphragmatic rupture, anemia, neuromuscular, this is not meant to be an all-inclusive list. EKG interpreted by me (3pts min.). @ -Yes and demonstrates sinus tach with a rate of 116. AL interval 131. QRS 80. QTc of 375. No acute ST segment elevations or depressions X-rays interpreted by me (1pt min.). @ -Yes and demonstrates worsening pulmonary edema CT interpreted by me (1pt min.). @ -None done U/S interpreted by me (1pt. min.). @ -None done What testing was considered but not performed or refused? (CT, X-rays, U/S, labs)? Why? @ -None What meds were considered but not given or refused? Why? @ -None Did you discuss the management of the patient with other professionals (professionals i.e. SOSA Arroyo, [employer]NER, lab, RT, psych nurse, social services specialist, risk manager, teacher, telecommunications officer, case sealer)? Give summary @ -Spoke with Dr. Lim and Sophia from [facility] Was smoking cessation discussed for >3mins.? @ -No Was critical care preformed (if so, how long)? @ -Yes, 35 minutes for BiPAP management Were there social determinants of health that impacted care today? How? (Homelessness, low income, unemployed, alcoholism, drug addiction, transportation, low edu. Level, literacy, decrease access to med. care, alf, rehab)? @ -Patient resides in rehab Was there de-escalation of care discussed even if they declined (Discuss DNR or withdrawal of care, Hospice)? DNR status @ -No What co-morbidities impacted this encounter? (DM, HTN, Smoking, COPD, CAD, Cancer, CVA, ARF, Chemo, Hep., AIDS, mental health diagnosis, sleep apnea, morbid obesity)? @ -End-stage renal disease on hemodialysis, diabetes Was patient admitted / discharged? Hospital course, mention meds given and route, prescriptions, significant lab abnormalities, going to OR and other pertinent info. @ -On arrival patient was seen and evaluated in trauma 1. She is transition to BiPAP. IV was established and laboratory studies were conducted. BNP is 22,000. Chest x-ray demonstrates worsening edema with a tiny right effusion. I did call and speak with Dr. Lim. She recommends 80 mg of IV Lasix. We did call dialysis and they will dialyze the patient JEMAL as she does not make much urine. Patient will be admitted to [facility]. Spoke with Sophia for admission Undiagnosed new problem with uncertain prognosis? @ -No Drug Therapy requiring intensive monitoring for toxicity (Heparin, Nitro, Insulin, Cardizem)? @ -No Were any procedures done? @ -No Diagnosis/symptom? @ -Acute hypoxic respiratory failure, acute volume overload, history of end- stage renal disease on hemodialysis Acute, or Chronic, or Acute on Chronic? @ -Acute on chronic Uncomplicated (without systemic symptoms) or Complicated (systemic symptoms)? @ -Complicated Side effects of treatment? @ -No Exacerbation, Progression, or Severe Exacerbation? @ -Yes Poses a threat to life or bodily function? How? (Chest pain, [place], [place], pneumonia, PE, COPD, DKA, ARF, appy, cholecystitis, CVA, Diverticulitis, Homicidal, Suicidal, threat to staff... and all critical care pts) @ -Yes as patient arrives hypoxic and respiratory failure - Lab Data Result diagrams: 03/14/24 04:57 03/14/24 04:57 Lab Results 03/14/24 03/14/2424 Range/Units 04:57 04:57 04:57 WBC 12.6 H (3.8-10.6) k/uL RBC 2.83 L (3.80-5.40) m/uL Hgb 9.0 L (11.4-16.0) gm/dL Hct 28.5 L (34.0-46.0) % MCV 100.6 H (80.0-100.0) fL MCH 31.9 (25.0-35.0) pg MCHC 31.7 (31.0-37.0) g/dL RDW 15.5 (11.5-15.5) % Plt Count 253 (150-450) k/uL MPV 8.2 Neutrophils % 75 % Lymphocytes % 5 % Monocytes % 6 % Eosinophils % 13 % Basophils % 1 % Neutrophils # 9.5 H (1.3-7.7) k/uL Lymphocytes # 0.6 L (1.0-4.8) k/uL Monocytes # 0.7 (0-1.0) k/uL Eosinophils # 1.7 H (0-0.7) k/uL Basophils # 0.1 (0-0.2) k/uL Macrocytosis Slight PT 10.9 (10.0-12.5) sec INR 1.0 (<1.2) APTT 25.2 (22.0-30.0) sec Sodium 139 (137-145) mmol/L Potassium 4.8 (3.5-5.1) mmol/L Chloride 96 L (98-107) mmol/L Carbon Dioxide 36 H (22-30) mmol/L Anion Gap 7 mmol/L BUN 37 H (7-17) mg/dL Creatinine 4.05 H (0.52-1.04) mg/dL Est GFR (CKD-EPI)AfAm 16 (>60 ml/min/1.73 sqM) Est GFR (CKD-EPI)NonAf 14 (>60 ml/min/1.73 sqM) Glucose 181 H (74-99) mg/dL Plasma Lactic Acid Christopher (0.7-2.0) mmol/L Calcium 9.2 (8.4-10.2) mg/dL Magnesium 1.8 (1.6-2.3) mg/dL Total Bilirubin 0.7 (0.2-1.3) mg/dL AST 25 (14-36) U/L ALT 43 H (4-34) U/L Alkaline Phosphatase 124 (38-126) U/L Troponin I (0.000-0.034) ng/mL NT-Pro-B Natriuret Pep 91436 pg/mL Total Protein 6.6 (6.3-8.2) g/dL Albumin 4.2 (3.5-5.0) g/dL 03/14/24 03/14/24 Range/Units 04:57 04:57 WBC (3.8-10.6) k/uL RBC (3.80-5.40) m/uL Hgb (11.4-16.0) gm/dL Hct (34.0-46.0) % MCV (80.0-100.0) fL MCH (25.0-35.0) pg MCHC (31.0-37.0) g/dL RDW (11.5-15.5) % Plt Count (150-450) k/uL MPV Neutrophils % % Lymphocytes % % Monocytes % % Eosinophils % % Basophils % % Neutrophils # (1.3-7.7) k/uL Lymphocytes # (1.0-4.8) k/uL Monocytes # (0-1.0) k/uL Eosinophils # (0-0.7) k/uL Basophils # (0-0.2) k/uL Macrocytosis PT (10.0-12.5) sec INR (<1.2) APTT (22.0-30.0) sec Sodium (137-145) mmol/L Potassium (3.5-5.1) mmol/L Chloride (98-107) mmol/L Carbon Dioxide (22-30) mmol/L Anion Gap mmol/L BUN (7-17) mg/dL Creatinine (0.52-1.04) mg/dL Est GFR (CKD-EPI)AfAm (>60 ml/min/1.73 sqM) Est GFR (CKD-EPI)NonAf (>60 ml/min/1.73 sqM) Glucose (74-99) mg/dL Plasma Lactic Acid Christopher 1.0 (0.7-2.0) mmol/L Calcium (8.4-10.2) mg/dL Magnesium (1.6-2.3) mg/dL Total Bilirubin (0.2-1.3) mg/dL AST (14-36) U/L ALT (4-34) U/L Alkaline Phosphatase (38-126) U/L Troponin I <0.012 (0.000-0.034) ng/mL NT-Pro-B Natriuret Pep pg/mL Total Protein (6.3-8.2) g/dL Albumin (3.5-5.0) g/dL Disposition Clinical Impression: ESRD (end stage renal disease), Pulmonary edema, Acute respiratory failure, BiPAP (biphasic positive airway pressure) dependence Disposition: ADMITTED IP TO THIS [facility] Condition: Serious Is patient prescribed a controlled substance at d/c from ED?: No Time of Disposition: 05:50 Decision to Admit Reason: Admit from EC Decision Date: 03/14/24 Decision Time: 05:50
[2024-03-14] MEDS ORDERED: NALOXONE 0.4 MG/ML 1 ML VIAL IV PRN (05:50)
--- NOTE | 2024-03-14 06:17 | XR ---
EXAM: XR Chest, 1 View CLINICAL HISTORY: ITS.REASON XR Reason: short of breath, dialysis patient TECHNIQUE: Frontal view of the chest. COMPARISON: FINDINGS: Lungs: Interval worsening interstitial process and aeration. Overall low lung volumes accentuate overall lung markings. No consolidation. Pleural space: Mild blunting of the right costophrenic angle likely tiny effusion. No pneumothorax. Heart: Cardiovascular silhouette, mildly enlarged and unchanged. Mediastinum: Mediastinal contour, within normal limits. Bones/joints: Unremarkable. No acute fracture. Tubes, lines and devices: Right-sided central venous catheter, unchanged in position. IMPRESSION: 1. Interval worsening edema. 2. Tiny right effusion suspected 3. Stable cardiomegaly. Low lung volume
[2024-03-14] MEDS: FUROSEMIDE 10 MG/ML 10 ML VIAL IV STA (06:58)
[2024-03-14] MEDS: HYDROcodone/APAP 10-325MG 1 EACH TAB PO ONE (08:24)
[2024-03-14] MEDS: MORPHINE SULFATE 4 MG/ML SYRINGE IVP STA (08:27)
--- NOTE | 2024-03-14 09:30 | P.CRDCN ---
History of Present Illness History of present illness: HISTORY OF PRESENT ILLNESS: This is a 34-year-old female with a past medical history significant for type 1 diabetes, hypertension, chronic kidney disease on hemodialysis, depression, anx iety, and hyperlipidemia. Patient follows in the office with Dr. Avila. We have been asked to see the patient in consultation for CHF. Patient examined at the bedside in the emergency room. Patient presented to the hospital with a chief complaint of shortness of breath. Patient also reports having chest pain and feels like an elephant is sitting on her chest. She states she has been attending dialysis regularly with no missed sessions. She states that her most recent session she had 4 L of fluid removed. She states at home she has been gaining approximately 3 to 4 pounds a day for the past few days. Patient's blood pressure was elevated upon admission to the hospital with a reading of 175/98. She was also tachycardic with heart rate around 120. DIAGNOSTICS: - EKG reveals sinus tachycardia with no signs of acute ischemia. - Chest xray interval worsening edema. Tiny right effusion suspected. Stable cardiomegaly.. - Laboratory data: WBC 12.6. Hemoglobin 9.0. Platelet count 253. Sodium 139. Potassium 4.8. BUN 37. Creatinine 4.04. Lactic acid 1.0. Magnesium 1.8. Troponin negative x 1. proBNP 22,200. - Current home cardiac medication list has not been updated at the time of examination - Most recent echocardiogram obtained in December 2023 revealed ejection fract ion 55 to 60%, mild MR, mild TR, and a small pericardial effusion with no tamponade physiology -Limited echo obtained on 02/06/2024 revealed ejection fraction 55 to 60% with small pericardial effusion with no tamponade physiology. -Patient underwent HAYDER on 12/27/2023 secondary to bacteremia revealing aortic valve is tricuspid with normal function, mitral valve appears to be normal with mild MR, tricuspid valve is normal with no vegetation, the intra-atrial septum is intact. No evidence of PFO. Left atrial appendage is free of clot. Left ventricular ejection fraction 55%, no vegetation noted. Dialysis catheter noted in the right atrium with no vegetation noted on catheter. REVIEW OF SYSTEMS: At the time of my exam: CONSTITUTIONAL: Denies fever or chills. HEENT: Denies blurred vision, vision changes, or eye pain. Denies hemoptysis CARDIOVASCULAR: Denies chest pain. Denies orthopnea. Denies PND. Denies palpitations RESPIRATORY: Reports shortness of breath. GASTROINTESTINAL: Denies abdominal pain. Denies nausea or vomiting. HEMATOLOGIC: Denies bleeding disorders. GENITOURINARY: Denies any blood in urine. SKIN: Denies pruitis. Denies rash. PHYSICAL EXAM: VITAL SIGNS: Reviewed. GENERAL: Well-developed in no acute distress. HEENT: Head is normocephalic. Pupils are equal, round. Sclerae anicteric. Mucous membranes of the mouth are moist. Neck supple. No JVD or thyromegaly LUNGS: Respirations even and unlabored. Lungs essentially clear to auscultation bilaterally. HEART: Mildly tachycardic. Regular rate and rhythm. S1 and S2 heard. + systolic murmur. S4 noted. ABDOMEN: Soft. Nondistended. Nontender. EXTREMITIES: Normal range of motion. No clubbing or cyanosis. Peripheral pulses intact. Bilateral lower extremity edema noted. NEUROLOGIC: Awake and alert. Oriented x 3. ASSESSMENT: Shortness of breath Acute hypoxic respiratory failure requiring BiPAP Acute on chronic heart failure with preserved ejection fraction likely more related to CKD/volume overload Hypertensive urgency End-stage renal disease on hemodialysis, Wednesday Leukocytosis Anemia of chronic disease History of hypertension History of hyperlipidemia Type 1 diabetes History of CVA, 2023 History of seizure Hypothyroidism Chronic pain syndrome PLAN: No need to repeat echocardiogram as this was performed last month Resume home cardiac medications when list has been verified Hemodialysis per nephrology Continue to monitor blood pressure. Will make adjustments as needed pending BP trends. Patient has not received her meds this morning yet as med rec has not been completed. Further recommendations pending patient course Nurse practitioner note has been reviewed by physician. Signing provider agrees with the documented findings, assessment, and plan of care documented by [employer]SEMBLER as a scribe. Past Medical History Past Medical History: Diabetes Mellitus, GERD/Reflux, Hypertension, Renal Disease, Seizure Disorder, Thyroid Disorder Additional Past Medical History / Comment(s): Neuropathy, last seizure 2020, gastroparesis, headaches with dialysis, states "fast heart rate" since giving ., receives Hemodialysis and Saturdays at [facility]., right chest hemodialysis catheter., severe HTN. patient awaiting Kidney and Pancrease Transplant. , states sometimes she has had stroke -like symptoms but no stroke., hx of c-diff 2013. History of Any Multi-Drug Resistant Organisms: None Reported Date of last positivie culture/infection: 2013 MDRO Source:: stool Past Surgical History: Adenoidectomy, Section, Cholecystectomy, Orthopedic Surgery, Tonsillectomy Additional Past Surgical History / Comment(s): 2 KNEE SCOPES, EAR TUBES, additi onal left knee surgery related to fracture, new port a cath sept , eye surgeries for diabetic retinopathy. Past Anesthesia/Blood Transfusion Reactions: Previous Problems w/ Anesthesia Additional Past Anesthesia/Blood Transfusion Reaction / Comment(s): confusion Past Psychological History: Anxiety, Depression Smoking Status: Former smoker Past Alcohol Use History: None Reported Past Drug Use History: Marijuana, Methamphetamine - Past Family History Father Family Medical History: Unable to Obtain Mother Family Medical History: No Reported History Grandfather Family Medical History: Coronary Artery Disease (CAD) Additional Family Medical History / Comment(s): Diabetes mellitus type 2 Medications and Allergies Home Medications Medication Instructions Recorded Confirmed Type Levothyroxine Sodium [Synthroid] 175 mcg PO DAILY@0600 10/22/23 02/18/24 History Sertraline [Zoloft] 200 mg PO DAILY@0800 10/22/23 02/18/24 History Atorvastatin [Lipitor] 40 mg PO HS@209912/27/23 02/18/24 History Divalproex ER [Depakote ER] 500 mg PO BID@0800,1700 12/27/23 02/18/24 History Ondansetron [Zofran] 4 mg PO Q8HR PRN 12/27/23 02/18/24 History Pantoprazole [Protonix] 40 mg PO DAILY@0600 12/27/23 02/18/24 History [place] Caps 1 cap PO HS@209912/27/23 02/18/24 History methocarbamoL [Robaxin-750] 750 mg PO QID@06,12,17,21 12/27/23 02/18/24 History Aspirin 81 mg PO DAILY@0800 02/05/24 02/18/24 History Docusate [Colace] 100 mg PO DAILY@0800 02/05/24 02/18/24 History Lidocaine 4% Patch 1 patch TOPICAL DAILY@0800 02/05/24 02/18/24 History Magnesium Hydroxide [Milk of 7,200 mg PO DAILY PRN 02/05/24 02/18/24 History Magnesia Concentrate] Menthol [Biofreeze] 1 applic TOPICAL BID PRN 02/05/24 02/18/24 History NIFEdipine XL [Procardia XL] 60 mg PO BID@0800,1700 02/05/24 02/18/24 History Sevelamer [Renvela] 1,600 mg PO AC-TID@07,11,1630 02/05/24 02/18/24 History Torsemide [Demadex] 40 mg PO DAILY@0800 02/05/24 02/18/24 History bisacodyL [Dulcolax] 10 mg RECTAL DAILY PRN 02/05/24 02/18/24 History INSULIN ASPART (NovoLOG) [NovoLOG 10 unit SQ AC-SUPPER each 02/14/24 02/18/24 Rx (formulary)] Ipratropium-Albuterol Nebulize 3 ml INHALATION RT-TID PRN each 02/14/24 02/18/24 Rx [Duoneb 0.5 mg-3 mg/3 ml Soln] Isosorbide Mononitrate ER [Imdur] 30 mg PO DAILY tab 02/14/24 02/18/24 Rx Metoclopramide [Reglan] 5 mg PO AC-TID tab 02/14/24 02/18/24 Rx polyethylene glycoL 3350 [Miralax] 17 gm PO AC-LUNCH #527 gm 02/14/24 02/18/24 Rx Acetaminophen [Tylenol] 650 mg PO Q4H PRN 02/18/24 02/18/24 History Biotene Dry Mouth/Throat 10 ml PO BID PRN 02/18/24 02/18/24 History INSULIN ASPART (NovoLOG) [NovoLOG 7 unit SQ AC-BID@0700,1200 02/18/24 02/18/24 History (formulary)] INSULIN ASPART (NovoLOG) [NovoLOG See Protocol SQ ACHS 02/18/24 02/18/24 History (formulary)] Insulin Detemir (Levemir) [Levemir] 12 unit SQ HS 02/18/24 02/18/24 History Insulin Detemir (Levemir) [Levemir] 20 unit SQ DAILY 02/18/24 02/18/24 History ALPRAZolam [Xanax] 0.5 mg PO BID PRN #20 tab 02/25/24 Rx ARIPiprazole [Abilify] 5 mg PO DAILY tab 02/25/24 Rx Baclofen [Lioresal] 10 mg PO TID PRN tab 02/25/24 Rx Butalb/APAP/Caff 50-325-40Mg 1 each PO Q4HR PRN #20 tab 02/25/24 Rx [Fioricet 50-325-40] Darbepoetin Artur [Aranesp] 40 mcg SQ Q7D each 02/25/24 Rx HYDROcodone/APAP 7.5-325MG [[place] 1 each PO Q8HR PRN #12 tab 02/25/24 Rx 7.5-325] Labetalol [Trandate] 400 mg PO BID tab 02/25/24 Rx Melatonin 1 mg PO HS tab 02/25/24 Rx cloNIDine HCL [Catapres] 0.3 mg PO TID tab 02/25/24 Rx hydrALAZINE HCL [Apresoline] 150 mg PO TID tab 02/25/24 Rx minoxidiL [Loniten] 2.5 mg PO DAILY tab 02/25/24 Rx traZODone HCL [Desyrel] 50 mg PO HS tab 02/25/24 Rx Allergies Allergy/AdvReac Type Severity Reaction Status Date / Time hydromorphone HCl Allergy Anaphylaxis Verified 03/14/24 04:01 [From Dilaudid] propoxyphene Allergy Rash/Hives Verified 03/14/24 04:01 [From Darvocet-N] tramadol Allergy Anaphylaxis Verified 03/14/24 04:01 ibuprofen [From Motrin] AdvReac unable to Verified 03/14/24 04:01 take due to kidney disease venom-honey bee AdvReac passes out Verified 03/14/24 04:01 [bee venom (honey bee)] Physical Exam Vitals: Vital Signs Temp Pulse Resp BP Pulse Ox FiO2 03/14/24 08:22 98 50 03/14/24 08:10 50 03/14/24 06:56 106 H 24 165/96 97 03/14/24 05:42 105 H 21 159/97 95 03/14/24 05:08 60 03/14/24 04:16 21 03/14/24 03:48 99.5 F 120 H 26 H 175/97 92 L 40 Intake and Output 03/13/24 03/14/24 03/14/24 22:59 06:59 14:59 Other: Weight 79.379 kg Results 03/14/24 04:57 03/14/24 04:57 Cardiac Enzymes 03/14/24 03/14/24 Range/Units 04:57 04:57 AST 25 (14-36) U/L Troponin I <0.012 (0.000-0.034) ng/mL Coagulation 03/14/24 Range/Units 04:57 PT 10.9 (10.0-12.5) sec APTT 25.2 (22.0-30.0) sec CBC 03/14/24 Range/Units 04:57 WBC 12.6 H (3.8-10.6) k/uL RBC 2.83 L (3.80-5.40) m/uL Hgb 9.0 L (11.4-16.0) gm/dL Hct 28.5 L (34.0-46.0) % Plt Count 253 (150-450) k/uL Comprehensive Metabolic Panel 03/14/24 Range/Units 04:57 Sodium 139 (137-145) mmol/L Potassium 4.8 (3.5-5.1) mmol/L Chloride 96 L (98-107) mmol/L Carbon Dioxide 36 H (22-30) mmol/L BUN 37 H (7-17) mg/dL Creatinine 4.05 H (0.52-1.04) mg/dL Glucose 181 H (74-99) mg/dL Calcium 9.2 (8.4-10.2) mg/dL AST 25 (14-36) U/L ALT 43 H (4-34) U/L Alkaline Phosphatase 124 (38-126) U/L Total Protein 6.6 (6.3-8.2) g/dL Albumin 4.2 (3.5-5.0) g/dL Current Medications Generic Name Dose Route Start Last Admin Trade Name Freq PRN Reason Stop Dose Admin Naloxone HCl 0.2 mg 03/14/24 05:50 Naloxone 0.4 Mg/Ml 1 Ml Vial IV Q2M PRN Opioid Reversal Intake and Output 03/13/24 03/14/2424 22:59 06:59 14:59 Other: Weight 79.379 kg 03/14/24 04:57 03/14/24 04:57
--- NOTE | 2024-03-14 11:00 | P.NPCON ---
History of Present Illness - Reason for Consult end stage renal disease - History of Present Illness patient is a 34-year-old female with end-stage renal disease maintained on hemodialysis on a Wednesday schedule. Patient is admitted to the hospital with complaints of shortness of breath. c hest x-ray shows CHF and volume overload. Patient has not missed any hemodialysis treatments. She has been dialyzing 4-5 times a week as outpatient. Status post 3.5 L of ultrafiltration with hemodialysis on Wednesday. fluid restriction has been discussed several times with the patient. no history of fever chills or cough. No history of abdominal pain. Currently maintained on BiPAP. Patient is seen on hemodialysis. Tolerating treatment well. Goal UF 3-4 L. Review of Systems as per HPI Past Medical History Past Medical History: Diabetes Mellitus, GERD/Reflux, Hypertension, Renal Disease, Seizure Disorder, Thyroid Disorder Additional Past Medical History / Comment(s): Neuropathy, last seizure 2020, gastroparesis, headaches with dialysis, states "fast heart rate" since giving ., receives Hemodialysis Wednesday- and Saturdays at [facility]., right chest hemodialysis catheter., severe HTN. patient awaiting Kidney and Pancrease Transplant. , states sometimes she has had stroke -like symptoms but no stroke., hx of c-diff 2013. History of Any Multi-Drug Resistant Organisms: None Reported Date of last positivie culture/infection: 2013 MDRO Source:: stool Past Surgical History: Adenoidectomy, Section, Cholecystectomy, Orthopedic Surgery, Tonsillectomy Additional Past Surgical History / Comment(s): 2 KNEE SCOPES, EAR TUBES, janet tional left knee surgery related to fracture, new port a cath jul 29, eye surgeries for diabetic retinopathy. Past Anesthesia/Blood Transfusion Reactions: Previous Problems w/ Anesthesia Additional Past Anesthesia/Blood Transfusion Reaction / Comment(s): confusion Past Psychological History: Anxiety, Depression Smoking Status: Former smoker Past Alcohol Use History: None Reported Past Drug Use History: Marijuana, Methamphetamine - Past Family History Father Family Medical History: Unable to Obtain Mother Family Medical History: No Reported History Grandfather Family Medical History: Coronary Artery Disease (CAD) Additional Family Medical History / Comment(s): Diabetes mellitus type 2 Medications and Allergies Home Medications Medication Instructions Recorded Confirmed Type Levothyroxine Sodium [Synthroid] 175 mcg PO DAILY@0600 10/22/23 03/14/24 History Sertraline [Zoloft] 200 mg PO DAILY@0800 10/22/23 03/14/24 History Atorvastatin [Lipitor] 40 mg PO HS@2100 12/27/23 03/14/24 History Divalproex ER [Depakote ER] 500 mg PO BID@0800,1700 12/27/23 03/14/24 History Ondansetron [Zofran] 4 mg PO Q8HR PRN 12/27/23 03/14/24 History Pantoprazole [Protonix] 40 mg PO DAILY@0600 12/27/23 03/14/24 History [place] Caps 1 cap PO HS@209912/27/23 03/14/24 History methocarbamoL [Robaxin-750] 750 mg PO QID@02,06,12,17 12/27/23 03/14/24 History Aspirin 81 mg PO DAILY@0800 02/05/24 03/14/24 History Docusate [Colace] 100 mg PO DAILY@0800 02/05/24 03/14/24 History Lidocaine 4% Patch 1 patch TOPICAL DAILY@0800 02/05/24 03/14/24 History Magnesium Hydroxide [Milk of 7,200 mg PO DAILY PRN 02/05/24 03/14/24 History Magnesia Concentrate] NIFEdipine XL [Procardia XL] 60 mg PO BID@0800,1700 02/05/24 03/14/24 History Sevelamer [Renvela] 1,600 mg PO AC-TID@07,11,1630 02/05/24 03/14/24 History Torsemide [Demadex] 40 mg PO DAILY@0800 02/05/24 03/14/24 History bisacodyL [Dulcolax] 10 mg RECTAL DAILY PRN 02/05/24 03/14/24 History Ipratropium-Albuterol Nebulize 3 ml INHALATION RT-TID PRN each 02/14/24 03/14/24 Rx [Duoneb 0.5 mg-3 mg/3 ml Soln] Isosorbide Mononitrate ER [Imdur] 30 mg PO DAILY tab 02/14/24 03/14/24 Rx Metoclopramide [Reglan] 5 mg PO AC-TID tab 02/14/24 03/14/24 Rx polyethylene glycoL 3350 [Miralax] 17 gm PO AC-LUNCH #527 gm 02/14/24 03/14/24 Rx Acetaminophen [Tylenol] 650 mg PO Q4H PRN 02/18/24 03/14/24 History Biotene Dry Mouth/Throat 10 ml PO BID PRN 02/18/24 03/14/24 History ALPRAZolam [Xanax] 0.5 mg PO BID PRN #20 tab 02/25/24 03/14/24 Rx Baclofen [Lioresal] 10 mg PO TID PRN tab 02/25/24 03/14/24 Rx Melatonin 1 mg PO HS tab 02/25/24 03/14/24 Rx hydrALAZINE HCL [Apresoline] 150 mg PO TID tab 02/25/24 03/14/24 Rx minoxidiL [Loniten] 2.5 mg PO DAILY tab 02/25/24 03/14/24 Rx traZODone HCL [Desyrel] 50 mg PO HS tab 02/25/24 03/14/24 Rx Butalb/APAP/Caff 50-325-40Mg 1 tab PO Q4HR PRN 03/14/24 03/14/24 History [Fioricet 50-325-40] Darbepoetin Artur [Aranesp] 40 mcg SQ MO 03/14/24 03/14/24 History HYDROcodone/APAP 7.5-325MG [[place] 1 tab PO Q8HR PRN 03/14/24 03/14/24 History 7.5-325] Insulin Aspart (For Pump) [NovoLOG 0.01 unit SQ-PUMP CONTINUOUS 03/14/24 03/14/24 History (For Pump)] Insulin Glargine [Lantus Vial] 25 unit SQ HS 03/14/24 03/14/24 History Labetalol [Trandate] 400 mg PO BID@0800,1700 03/14/24 03/14/24 History Menthol [Biofreeze] 1 applic TOPICAL BID PRN 03/14/24 03/14/24 History Sevelamer [Renvela] 800 mg PO HS 03/14/24 03/14/24 History cloNIDine HCL [Catapres] 0.3 mg PO TID 03/14/24 03/14/24 History Allergies Allergy/AdvReac Type Severity Reaction Status Date / Time hydromorphone HCl Allergy Anaphylaxis Verified 03/14/24 10:00 [From Dilaudid] propoxyphene Allergy Rash/Hives Verified 03/14/24 10:00 [From Darvocet-N] tramadol Allergy Anaphylaxis Verified 03/14/24 10:00 ibuprofen [From Motrin] AdvReac unable to Verified 03/14/24 10:00 take due to kidney disease venom-honey bee AdvReac passes out Verified 03/14/24 10:00 [bee venom (honey bee)] Physical Exam Vitals: Vital Signs Temp Pulse Resp BP Pulse Ox FiO2 03/14/24 08:22 98 50 03/14/24 08:10 50 03/14/24 06:56 106 H 24 165/96 97 03/14/24 05:42 105 H 21 159/97 95 03/14/24 05:08 60 03/14/24 04:16 21 03/14/24 03:48 99.5 F 120 H 26 H 175/97 92 L 40 Intake and Output 03/13/24 03/14/24 03/14/24 22:59 06:59 14:59 Other: Weight 79.379 kg patient is awake. She is on BiPAP Examination of the heart S1 and S2 Examination of the lungs bilateral breath sounds are heard Abdomen is soft nontender Examination of lower extremities shows edema 2+ bilaterally RECRUITING ADMINISTRATOR exam grossly intact Results - Lab Results Most recent lab results Calcium 9.2 mg/dL (8.4-10.2) 03/14/24 04:57 Magnesium 1.8 mg/dL (1.6-2.3) 03/14/24 04:57 03/14/24 04:57 03/14/24 04:57 Assessment and Plan Assessment: 1. End-stage renal disease on hemodialysis on a Wednesday schedule 2. Volume overload 3. Acute hypoxic respiratory failure secondary to CHF and volume overload 4. Hypertension partly volume sensitive, uncontrolled. Expect improvement with hemodialysis and ultrafiltration 5. CK D mineral bone disorder Plan: hemodialysis today and repeat in a.m. Resume home antihypertensive regimen add Aranesp Resume Renvela with meals Resume proton pump inhibitors and Reglan for gastroparesis. Next Thank you for the consultation. We will continue to follow the patient with you during her hospitalization.
[2024-03-14] MEDS ORDERED: NON FORMULARY DRUG (Menthol [Biofreeze] 89 ML Gel..Ml.) TOPICAL PRN (12:10)
[2024-03-14] MEDS ORDERED: bisacodyL 10 MG SUPP RECTAL PRN (12:10)
--- NOTE | 2024-03-14 12:24 | P.HPIM ---
History of Present Illness 34-year-old female came in with complaints of shortness of breath and patient is presently on BiPAP.. Patient has history of end-stage renal disease on hemodialysis did not miss any hemodialysis as per the patient patient is found to have severe pulmonary edema and and patient is undergoing hemodialysis with removal of the 3.5 L of fluid. Patient blood pressure is high. Patient had normal ejection fraction does not have any history of heart failure patient does not urinate much. Patient is complaining of pain in the chest because of which cardiology evaluated the patient, EKG did not show any acute ST-T wave changes. 1 set of troponin is within normal limits patient's proBNP is elevated to 22,200. Patient has not had any fever chills patient does have leukocytosis 12,600 REVIEW OF SYSTEMS: All other review of systems are negative save those mentioned above PHYSICAL EXAMINATION: GENERAL: The patient is alert and oriented x3, not in any acute distress. Well developed, well nourished. On BiPAP HEENT: Pupils are round and equally reacting to light. EOMI. No scleral icterus. No conjunctival pallor. Normocephalic, atraumatic. No pharyngeal erythema. No thyromegaly. CARDIOVASCULAR: S1 and S2 present. No murmurs, rubs, or gallops. PULMONARY: Chest is clear to auscultation, no wheezing. Patient has crackles posteriorly ABDOMEN: Soft, nontender, nondistended, normoactive bowel sounds. No palpable organomegaly. MUSCULOSKELETAL: No joint swelling or deformity. EXTREMITIES: No cyanosis, clubbing, or pedal edema. NEUROLOGICAL: Gross neurological examination did not reveal any focal deficits. SKIN: No rashes. Assessment and plan -Acute respiratory failure secondary to pulmonary edema from end-stage renal disease patient is undergoing hemodialysis received IV Lasix. -Leukocytosis reactive in nature Chest-chest pressure probably because of uremia and end-stage renal disease cardiology evaluated the patient -Hypertension uncontrolled elevated clearly was started on her home antihypertensive medications expected to improve with hemodialysis -Gastroesophageal reflux disease -End-stage renal disease -Seizure disorder -Hypothyroidism -Chronic pain -Depression DVT prophylaxis: Subcutaneous heparin Past Medical History Past Medical History: Diabetes Mellitus, GERD/Reflux, Hypertension, Renal Disease, Seizure Disorder, Thyroid Disorder Additional Past Medical History / Comment(s): Neuropathy, last seizure 2020, gastroparesis, headaches with dialysis, states "fast heart rate" since giving ., receives Hemodialysis Wednesday- and Saturdays at [facility] right chest hemodialysis catheter., severe HTN. patient awaiting Kidney and Pancrease Transplant. , states sometimes she has had stroke -like symptoms but no stroke., hx of c-diff 2013. History of Any Multi-Drug Resistant Organisms: None Reported Date of last positivie culture/infection: 2013 MDRO Source:: stool Past Surgical History: Adenoidectomy, Section, Cholecystectomy, Orthopedic Surgery, Tonsillectomy Additional Past Surgical History / Comment(s): 2 KNEE SCOPES, EAR TUBES, additional left knee surgery related to fracture, new port a cath sept , eye surgeries for diabetic retinopathy. Past Anesthesia/Blood Transfusion Reactions: Previous Problems w/ Anesthesia Additional Past Anesthesia/Blood Transfusion Reaction / Comment(s): confusion Past Psychological History: Anxiety, Depression Smoking Status: Former smoker Past Alcohol Use History: None Reported Past Drug Use History: Marijuana, Methamphetamine - Past Family History Father Family Medical History: Unable to Obtain Mother Family Medical History: No Reported History Grandfather Family Medical History: Coronary Artery Disease (CAD) Additional Family Medical History / Comment(s): Diabetes mellitus type 2 Medications and Allergies Home Medications Medication Instructions Recorded Confirmed Type Levothyroxine Sodium [Synthroid] 175 mcg PO DAILY@0600 10/22/23 03/14/24 History Sertraline [Zoloft] 200 mg PO DAILY@0800 10/22/23 03/14/24 History Atorvastatin [Lipitor] 40 mg PO HS@209912/27/23 03/14/24 History Divalproex ER [Depakote ER] 500 mg PO BID@0800,1700 12/27/23 03/14/24 History Ondansetron [Zofran] 4 mg PO Q8HR PRN 12/27/23 03/14/24 History Pantoprazole [Protonix] 40 mg PO DAILY@0600 12/27/23 03/14/24 History [place] Caps 1 cap PO HS@209912/27/23 03/14/24 History methocarbamoL [Robaxin-750] 750 mg PO QID@02,06,12,17 12/27/23 03/14/24 History Aspirin 81 mg PO DAILY@0800 02/05/24 03/14/24 History Docusate [Colace] 100 mg PO DAILY@0800 02/05/24 03/14/24 History Lidocaine 4% Patch 1 patch TOPICAL DAILY@0800 02/05/24 03/14/24 History Magnesium Hydroxide [Milk of 7,200 mg PO DAILY PRN 02/05/24 03/14/24 History Magnesia Concentrate] NIFEdipine XL [Procardia XL] 60 mg PO BID@0800,1700 02/05/24 03/14/24 History Sevelamer [Renvela] 1,600 mg PO AC-TID@07,11,1630 02/05/24 03/14/24 History Torsemide [Demadex] 40 mg PO DAILY@0800 02/05/24 03/14/24 History bisacodyL [Dulcolax] 10 mg RECTAL DAILY PRN 02/05/24 03/14/24 History Ipratropium-Albuterol Nebulize 3 ml INHALATION RT-TID PRN each 02/14/24 03/14/24 Rx [Duoneb 0.5 mg-3 mg/3 ml Soln] Isosorbide Mononitrate ER [Imdur] 30 mg PO DAILY tab 02/14/24 03/14/24 Rx Metoclopramide [Reglan] 5 mg PO AC-TID tab 02/14/24 03/14/24 Rx polyethylene glycoL 3350 [Miralax] 17 gm PO AC-LUNCH #527 gm 02/14/24 03/14/24 Rx Acetaminophen [Tylenol] 650 mg PO Q4H PRN 02/18/24 03/14/24 History Biotene Dry Mouth/Throat 10 ml PO BID PRN 02/18/24 03/14/24 History ALPRAZolam [Xanax] 0.5 mg PO BID PRN #20 tab 02/25/24 03/14/24 Rx Baclofen [Lioresal] 10 mg PO TID PRN tab 02/25/24 03/14/24 Rx Melatonin 1 mg PO HS tab 02/25/24 03/14/24 Rx hydrALAZINE HCL [Apresoline] 150 mg PO TID tab 02/25/24 03/14/24 Rx minoxidiL [Loniten] 2.5 mg PO DAILY tab 02/25/24 03/14/24 Rx traZODone HCL [Desyrel] 50 mg PO HS tab 02/25/24 03/14/24 Rx Butalb/APAP/Caff 50-325-40Mg 1 tab PO Q4HR PRN 03/14/24 03/14/24 History [Fioricet 50-325-40] Darbepoetin Artur [Aranesp] 40 mcg SQ MO 03/14/24 03/14/24 History HYDROcodone/APAP 7.5-325MG [[place] 1 tab PO Q8HR PRN 03/14/24 03/14/24 History 7.5-325] Insulin Aspart (For Pump) [NovoLOG 0.01 unit SQ-PUMP CONTINUOUS 03/14/24 03/14/24 History (For Pump)] Insulin Glargine [Lantus Vial] 25 unit SQ HS 03/14/24 03/14/24 History Labetalol [Trandate] 400 mg PO BID@0800,1700 03/14/24 03/14/24 History Menthol [Biofreeze] 1 applic TOPICAL BID PRN 03/14/24 03/14/24 History Sevelamer [Renvela] 800 mg PO HS 03/14/24 03/14/24 History cloNIDine HCL [Catapres] 0.3 mg PO TID 03/14/24 03/14/24 History Allergies Allergy/AdvReac Type Severity Reaction Status Date / Time hydromorphone HCl Allergy Anaphylaxis Verified 03/14/24 10:00 [From Dilaudid] propoxyphene Allergy Rash/Hives Verified 03/14/24 10:00 [From Darvocet-N] tramadol Allergy Anaphylaxis Verified 03/14/24 10:00 ibuprofen [From Motrin] AdvReac unable to Verified 03/14/24 10:00 take due to kidney disease venom-honey bee AdvReac passes out Verified 03/14/24 10:00 [bee venom (honey bee)] Physical Exam Vitals: Vital Signs Temp Pulse Resp BP Pulse Ox FiO2 03/14/24 12:17 50 03/14/24 11:00 101 H 16 182/101 97 03/14/24 10:30 97 18 161/99 97 03/14/24 10:00 96 17 141/88 97 03/14/24 09:30 98 18 142/85 97 03/14/24 09:00 101 H 18 156/87 97 03/14/24 08:30 104 H 11 L 167/92 97 03/14/24 08:22 98 50 03/14/24 08:10 50 03/14/24 08:00 107 H 17 155/90 97 03/14/24 07:30 107 H 14 161/94 96 03/14/24 06:56 106 H 24 165/96 97 03/14/24 05:42 105 H 21 159/97 95 03/14/24 05:08 60 03/14/24 04:16 21 03/14/24 03:48 99.5 F 120 H 26 H 175/97 92 L 40 Intake and Output 03/13/24 03/14/24 03/14/24 22:59 06:59 14:59 Other: Weight 79.379 kg Results CBC & Chem 7: 03/14/24 04:57 03/14/24 04:57 Labs: Abnormal Lab Results - Last 24 Hours (Table) 03/14/24 03/14/24 Range/Units 04:57 04:57 WBC 12.6 H (3.8-10.6) k/uL RBC 2.83 L (3.80-5.40) m/uL Hgb 9.0 L (11.4-16.0) gm/dL Hct 28.5 L (34.0-46.0) % MCV 100.6 H (80.0-100.0) fL Neutrophils # 9.5 H (1.3-7.7) k/uL Lymphocytes # 0.6 L (1.0-4.8) k/uL Eosinophils # 1.7 H (0-0.7) k/uL Chloride 96 L (98-107) mmol/L Carbon Dioxide 36 H (22-30) mmol/L BUN 37 H (7-17) mg/dL Creatinine 4.05 H (0.52-1.04) mg/dL Glucose 181 H (74-99) mg/dL ALT 43 H (4-34) U/L
[2024-03-14] MEDS: LIDOCAINE 4% PATCH TOPICAL ONE (13:15)
[2024-03-14] MEDS: ALPRAZolam 0.5 MG TAB PO PRN (13:16)
[2024-03-14] MEDS: BUTALB/APAP/CAFF 50-325-40MG TAB PO PRN (13:16)
[2024-03-14] MEDS: HYDROcodone/APAP 7.5-325MG 1 EACH TAB PO PRN (13:17)
[2024-03-14] MEDS: cloNIDine HCL 0.1 MG TAB PO SCH (13:18)
[2024-03-14] MEDS: hydrALAZINE HCL 50 MG TAB PO SCH (13:18)
[2024-03-14] MEDS: polyethylene glycoL 3350 17 GM POWD.PACK PO SCH (13:23)
[2024-03-14 16:51] LABS: Glucose,Whole Blood 333 mg/dL (70-110)
[2024-03-14] MEDS: SEVELAMER 800 MG TAB PO SCH ×2 (17:57→20:52)
[2024-03-14] MEDS: HEPARIN SODIUM,PORCINE 5,000 UNIT/ML 1 ML VIAL SQ SCH (17:57)
[2024-03-14] MEDS: methocarbamoL 750 MG TAB PO SCH (17:58)
[2024-03-14] MEDS: DIVALPROEX ER 500 MG TAB.ER.24H PO SCH (17:59)
[2024-03-14] MEDS: LABETALOL 200 MG TAB PO SCH (17:59)
[2024-03-14 20:03] LABS: Glucose,Whole Blood 406 mg/dL (70-110)
[2024-03-14] MEDS: Insulin Aspart (For Pump) 100 UNIT/ML VIAL SQ-PUMP SCH (20:06)
[2024-03-14] MEDS: traZODone HCL 50 MG TAB PO SCH (20:50)
[2024-03-14] MEDS: MELATONIN 1 MG TAB PO SCH (20:51)
[2024-03-14] MEDS: ATORVASTATIN 40 MG TAB PO SCH (20:52)
[2024-03-14] MEDS: INSULIN ASPART (NovoLOG) 100 UNIT/ML VIAL SQ SCH (20:52)
[2024-03-14] MEDS: INSULIN DETEMIR (LEVEMIR) 100 UNIT/ML SYR SQ SCH (20:54)
[2024-03-14] MEDS ORDERED: INSULIN DETEMIR (LEVEMIR) 100 UNIT/ML SYR SQ SCH (21:00)
[2024-03-14 22:54] LABS: Glucose,Whole Blood 330 mg/dL (70-110)
[2024-03-15] MEDS: ONDANSETRON 4 MG/2 ML VIAL IVP PRN (04:17)
[2024-03-15] MEDS: ACETAMINOPHEN TAB 325 MG TAB PO PRN (04:25)
[2024-03-15 04:35] LABS: Glucose,Whole Blood 29 mg/dL (70-110)
[2024-03-15] MEDS: DEXTROSE 50% SYRINGE 50 ML IVP PRN ×2 (04:36→11:00)
[2024-03-15 04:59] LABS: Glucose,Whole Blood 84 mg/dL (70-110)
[2024-03-15 05:49] LABS: Glucose,Whole Blood 33 mg/dL (70-110)
[2024-03-15 06:12] LABS: Glucose,Whole Blood 86 mg/dL (70-110)
[2024-03-15] MEDS: PANTOPRAZOLE 40 MG TABLET PO SCH (06:28)
[2024-03-15] MEDS: LEVOTHYROXINE 88 MCG TAB PO SCH (06:28)
[2024-03-15 07:06] LABS: Glucose,Whole Blood 47 mg/dL (70-110)
[2024-03-15 07:23] LABS: Glucose,Whole Blood 69 mg/dL (70-110)
[2024-03-15 07:59] LABS: Glucose,Whole Blood 71 mg/dL (70-110)
[2024-03-15] MEDS ORDERED: TORSEMIDE 20 MG TAB PO SCH (08:00)
[2024-03-15] MEDS: ASPIRIN 81 MG PO SCH (08:29)
[2024-03-15] MEDS: SERTRALINE 100 MG TAB PO SCH (08:30)
[2024-03-15] MEDS: DOCUSATE 100 MG CAP PO SCH (08:30)
[2024-03-15] MEDS: ISOSORBIDE MONONITRATE ER 30 MG TAB.ER.24H PO SCH (08:30)
[2024-03-15 10:54] LABS: Glucose,Whole Blood 52 mg/dL (70-110)
--- NOTE | 2024-03-15 10:56 | P.PN ---
Subjective patient is seen for follow-up for end-stage renal disease. admitted with shortness of breath and fluid overload. Status post hemodialysis yesterday with UF of 3.9 L. Seen on hemodialysis again today. Shortness of breath has improved. Off of BiPAP. Objective - Vital Signs Vital signs: Vital Signs Temp 98.6 F 03/14/24 23:11 Pulse 95 03/15/24 01:13 Resp 18 03/15/24 01:13 BP 134/82 03/15/24 01:13 Pulse Ox 92 L 03/15/24 08:13 FiO2 40 03/15/24 08:13 Intake & Output 03/14/24 03/15/24 03/15/24 18:59 06:59 18:59 Intake Total 400 480 Output Total 3900 Balance -3500 480 Weight 78.2 kg Intake: Oral 480 Hemodialysis 400 Output: Hemodialysis 3900 - Exam patient is awake. comfortable Examination of the heart S1 and S2 Examination of the lungs bilateral breath sounds are heard Abdomen is soft nontender Examination of lower extremities shows edema 2+ bilaterally LEVER MILLER exam grossly intact - Labs CBC & Chem 7: 03/14/24 04:57 03/14/24 04:57 Labs: Abnormal Lab Results - Last 24 Hours (Table) 03/14/24 03/14/24 03/14/24 Range/Units 16:50 19:56 22:52 POC Glucose (mg/dL) 333 H 406 H 330 H (70-110) mg/dL 03/15/24 03/15/24 03/15/24 Range/Units 04:34 05:47 07:00 POC Glucose (mg/dL) 29 L 33 L 47 L (70-110) mg/dL 03/15/24 Range/Units 07:21 POC Glucose (mg/dL) 69 L (70-110) mg/dL Assessment and Plan Assessment: 1. End-stage renal disease on hemodialysis on a Wednesday schedule 2. Volume overload. Patient has been maintained on hemodialysis 4-5 times a week as outpatient. Fluid restriction has been discussed on multiple occasions. 3. Acute hypoxic respiratory failure secondary to CHF and volume overload 4. Hypertension partly volume sensitive, uncontrolled. improved with hemodialysis and ultrafiltration 5. CK D mineral bone disorder Plan: hemodialysis today and repeat in a.m. continue Aranesp continue Renvela with meals
[2024-03-15 11:36] LABS: Glucose,Whole Blood 74 mg/dL (70-110)
[2024-03-15] MEDS: LIDOCAINE 4% PATCH TOPICAL SCH (12:27)
--- NOTE | 2024-03-15 12:37 | P.PN ---
Subjective HISTORY OF PRESENT ILLNESS: This is a 34-year-old female with a past medical history significant for type 1 diabetes, hypertension, chronic kidney disease on hemodialysis, depression, anxiety, and hyperlipidemia. Patient follows in the office with Dr. Avila. We have been asked to see the patient in consultation for CHF. Patient examined at the bedside in the emergency room. Patient presented to the hospital with a chief complaint of shortness of breath. Patient also reports having chest pain and feels like an elephant is sitting on her chest. She states she has been attending dialysis regularly with no missed sessions. She states that her most recent session she had 4 L of fluid removed. She states at home she has been gaining approximately 3 to 4 pounds a day for the past few days. Patient's blood pressure was elevated upon admission to the hospital with a reading of 175/98. She was also tachycardic with heart rate around 120. DIAGNOSTICS: - EKG reveals sinus tachycardia with no signs of acute ischemia. - Chest xray interval worsening edema. Tiny right effusion suspected. Stable cardiomegaly.. - Laboratory data: WBC 12.6. Hemoglobin 9.0. Platelet count 253. Sodium 139. Potassium 4.8. BUN 37. Creatinine 4.04. Lactic acid 1.0. Magnesium 1.8. Troponin negative x 1. proBNP 22,200. - Current home cardiac medication list has not been updated at the time of examination - Most recent echocardiogram obtained in December 2023 revealed ejection fraction 55 to 60%, mild MR, mild TR, and a small pericardial effusion with no tamponade physiology -Limited echo obtained on 02/06/2024 revealed ejection fraction 55 to 60% with small pericardial effusion with no tamponade physiology. -Patient underwent HAYDER on 12/27/2023 secondary to bacteremia revealing aortic valve is tricuspid with normal function, mitral valve appears to be normal with mild MR, tricuspid valve is normal with no vegetation, the intra-atrial septum is intact. No evidence of PFO. Left atrial appendage is free of clot. Left ventricular ejection fraction 55%, no vegetation noted. Dialysis catheter noted in the right atrium with no vegetation noted on catheter. 03/15/2024 Patient examined this morning the bedside. Patient is currently undergoing hemodialysis. Patient states she has been sleeping a lot since being admitted to the hospital. She reports back pain when she is coughing. She also reports chest pain with deep inspiration. Vital signs are stable. Blood pressure is much better controlled today. Blood pressure this morning 157/88. PHYSICAL EXAM: VITAL SIGNS: Reviewed. GENERAL: Well-developed in no acute distress. HEENT: Head is normocephalic. Pupils are equal, round. Sclerae anicteric. Mucous membranes of the mouth are moist. Neck supple. No JVD or thyromegaly LUNGS: Respirations even and unlabored. Lungs essentially clear to auscultation bilaterally. HEART: Regular rate and rhythm. S1 and S2 heard. + systolic murmur. S4 noted. ABDOMEN: Soft. Nondistended. Nontender. EXTREMITIES: Normal range of motion. No clubbing or cyanosis. Peripheral pulses intact. Bilateral lower extremity edema noted. NEUROLOGIC: Awake and alert. Oriented x 3. ASSESSMENT: Shortness of breath Acute hypoxic respiratory failure requiring BiPAP Acute on chronic heart failure with preserved ejection fraction likely more re lated to CKD/volume overload Hypertensive urgency End-stage renal disease on hemodialysis, Wednesday Leukocytosis Anemia of chronic disease History of hypertension History of hyperlipidemia Type 1 diabetes History of CVA, 2023 History of seizure Hypothyroidism Chronic pain syndrome PLAN: No need to repeat echocardiogram as this was performed last month Continue current cardiac medications Hemodialysis per nephrology Continue to monitor blood pressure Patient currently stable from a cardiac perspective Further recommendations pending patient course Nurse practitioner note has been reviewed by physician. Signing provider agrees with the documented findings, assessment, and plan of care documented by [employer] as a scribe. Objective - Vital Signs Vital signs: Vital Signs Temp 98 F 03/15/24 08:25 Pulse 85 03/15/24 08:25 Resp 16 03/15/24 08:25 BP 157/88 03/15/24 08:25 Pulse Ox 98 03/15/24 08:25 FiO2 40 03/15/24 08:13 Intake & Output 03/14/24 03/15/24 03/15/24 18:59 06:59 18:59 Intake Total 400 490 Output Total 3900 Balance -3500 490 Weight 78.2 kg Intake: IV 10 Invasive Line 1 10 Oral 480 Hemodialysis 400 Output: Hemodialysis 3900 - Labs CBC & Chem 7: 03/14/24 04:57 03/14/24 04:57 Labs: Abnormal Lab Results - Last 24 Hours (Table) 03/14/24 03/14/24 03/14/24 Range/Units 16:50 19:56 22:52 POC Glucose (mg/dL) 333 H 406 H 330 H (70-110) mg/dL 03/15/24 03/15/24 03/15/24 Range/Units 04:34 05:47 07:00 POC Glucose (mg/dL) 29 L 33 L 47 L (70-110) mg/dL 03/15/24 03/15/24 Range/Units 07:21 10:52 POC Glucose (mg/dL) 69 L 52 L (70-110) mg/dL
[2024-03-15 15:13] LABS: Basophils # (A) 0.1 k/uL (0-0.2); Basophils % (A) 1 %; Eosinophils % (A) 9 %; HCT 21.8 % (34.0-46.0); Lymphocytes # (A) 0.7 k/uL (1.0-4.8); Lymphocytes % (A) 6 %; MCH 31.8 pg (25.0-35.0); MCHC 31.8 g/dL (31.0-37.0); Macrocytosis Slight; Mean Platelet Volume 8.1; Monocytes % (A) 9 %; Neutrophils # (A) 8.5 k/uL (1.3-7.7); Neutrophils % (A) 75 %; Platelet Count 213 k/uL (150-450); RBC 2.18 m/uL (3.80-5.40); RDW 15.5 % (11.5-15.5); WBC 11.4 k/uL (3.8-10.6)
[2024-03-15 15:20] LABS: HGB 6.9 gm/dL (11.4-16.0)
--- NOTE | 2024-03-15 15:20 | P.PN ---
Subjective Progress Note Date: 03/15/24 34-year-old female came in with complaints of shortness of breath and patient is presently on BiPAP.. Patient has history of end-stage renal disease on hemodialysis did not miss any hemodialysis as per the patient patient is found to have severe pulmonary edema and and patient is undergoing hemodialysis with removal of the 3.5 L of fluid. Patient blood pressure is high. Patient had normal ejection fraction does not have any history of heart failure patient does not urinate much. Patient is complaining of pain in the chest because of which cardiology evaluated the patient, EKG did not show any acute ST-T wave changes. 1 set of troponin is within normal limits patient's proBNP is elevated to 22, 200. Patient has not had any fever chills patient does have leukocytosis 12,600 03/15/2024 Patient is evaluated today resting in bed during hemodialysis. She continues to report significant nausea as well as her chronic back pain. Patient is requesting additional nausea medication. Patient was started on a heart healthy diet which was not started until this morning unfortunately she did not get any dinner and was given a dose of Levemir 40 units at at bedtime due to increased blood glucose and blood sugar was down until 33 today because she is currently up to 74. Would recommend to hold the evening dose of Levemir for blood glucose remains below 100. Levemir was also decreased back to her usual dose of 25 units at bedtime. Patient continues on 3 L of oxygen. Patient is a // Wednesday hemodialysis patient although has been getting hemodialysis 4 to 5 times weekly on an outpatient basis and has not been complaint with fluid restrictions. Review of Systems Constitutional: Denied any fatigue denied any fever. Cardio vascular: denied any chest pain, palpitations Gastrointestinal: Reports nausea, vomiting, diarrhea Pulmonary: Denied any shortness of breath cough Neurologic denied any new focal deficits All inpatient medications were reviewed and appropriate changes in these medications as dictated in the interval history and assessment and plan. PHYSICAL EXAMINATION: GENERAL: The patient is alert and oriented x3, not in any acute distress. Well developed, well nourished. On BiPAP HEENT: Pupils are round and equally reacting to light. EOMI. No scleral icterus. No conjunctival pallor. Normocephalic, atraumatic. No pharyngeal erythema. No thyromegaly. CARDIOVASCULAR: S1 and S2 present. No murmurs, rubs, or gallops. PULMONARY: Chest is clear to auscultation, no wheezing. Patient has crackles posteriorly ABDOMEN: Soft, nontender, nondistended, normoactive bowel sounds. No palpable organomegaly. MUSCULOSKELETAL: No joint swelling or deformity. EXTREMITIES: No cyanosis, clubbing, or pedal edema. NEUROLOGICAL: Gross neurological examination did not reveal any focal deficits. SKIN: No rashes. Assessment and plan -Acute respiratory failure secondary to pulmonary edema from end-stage renal disease patient is undergoing hemodialysis received IV Lasix. -Nausea secondary to uremia and end-stage renal disease continues on antiemetics, oral compazine added today -History of gastroparesis maintained on Reglan on an outpatient basis -Leukocytosis reactive in nature -Chest pressure which appears more musculoskeletal in nature, pain is reproducible with palpation. Patient states this is from coughing. -Hypertension uncontrolled elevated clearly was started on her home antihypertensive medications improved with hemodialysis -Gastroesophageal reflux disease -End-stage renal disease -Seizure disorder -Hypothyroidism -Chronic pain patient continues on oral Acme as well as baclofen, methocarbamol while as needed -Depression DVT prophylaxis: Subcutaneous heparin GI prophylaxis Full Code PT/OT consulted, continue with hemodialysis per nephrology. Monitor renal function and electrolytes. The impression and plan of care has been dictated by Yeni Blackburn, Nurse Practitioner as directed. Dr. Connie MD I have performed a history and physical examination and medical decision making of this patient, discussed the same with the dictator, and agree with the dictators assessment and plan as written, documented as a scribe. Based on total visit time, I have performed more than 50% of this visit. Objective - Vital Signs Vital signs: Vital Signs Temp 98.6 F 03/14/24 23:11 Pulse 95 03/15/24 01:13 Resp 18 03/15/24 01:13 BP 134/82 03/15/24 01:13 Pulse Ox 92 L 03/15/24 08:13 FiO2 40 03/15/24 08:13 Intake & Output 03/14/24 03/15/24 03/15/24 18:59 06:59 18:59 Intake Total 400 480 Output Total 3900 Balance -3500 480 Weight 78.2 kg Intake: Oral 480 Hemodialysis 400 Output: Hemodialysis 3900 - Labs CBC & Chem 7: 03/14/24 04:57 03/14/24 04:57 Labs: Abnormal Lab Results - Last 24 Hours (Table) 03/14/24 03/14/24 03/14/24 Range/Units 16:50 19:56 22:52 POC Glucose (mg/dL) 333 H 406 H 330 H (70-110) mg/dL 03/15/24 03/15/24 03/15/24 Range/Units 04:34 05:47 07:00 POC Glucose (mg/dL) 29 L 33 L 47 L (70-110) mg/dL 03/15/24 Range/Units 07:21 POC Glucose (mg/dL) 69 L (70-110) mg/dL Assessment and Plan Time with Patient: Less than 30
[2024-03-15 15:38] LABS: African American GFR (CKD) 33 (>60 ml/min/1.73 sqM); Anion Gap 5 mmol/L; Blood Urea Nitrogen 17 mg/dL (7-17); Calcium 8.3 mg/dL (8.4-10.2); Carbon Dioxide 30 mmol/L (22-30); Chloride 97 mmol/L (98-107); Glucose 167 mg/dL (74-99); Non-African American GFR(CKD) 28 (>60 ml/min/1.73 sqM); Potassium 4.1 mmol/L (3.5-5.1); Sodium 132 mmol/L (137-145)
[2024-03-15 16:26] LABS: Glucose,Whole Blood 255 mg/dL (70-110)
[2024-03-15] MEDS: minoxidiL 2.5 MG TAB PO SCH (17:20)
[2024-03-15] MEDS: IPRATROPIUM-ALBUTEROL 3 ML NEB INHALATION PRN (18:27)
[2024-03-15 20:11] LABS: Glucose,Whole Blood 320 mg/dL (70-110)
[2024-03-15] MEDS: INSULIN DETEMIR (LEVEMIR) 100 UNIT/ML SYR SQ SCH (21:13)
[2024-03-16] MEDS: BACLOFEN 10 MG TAB PO PRN (00:05)
[2024-03-16 01:57] LABS: Glucose,Whole Blood 213 mg/dL (70-110)
[2024-03-16 06:10] LABS: Glucose,Whole Blood 34 mg/dL (70-110)
[2024-03-16 06:11] LABS: Glucose,Whole Blood 34 mg/dL (70-110)
[2024-03-16 06:32] LABS: Glucose,Whole Blood 100 mg/dL (70-110)
--- NOTE | 2024-03-16 10:12 | P.PN ---
Subjective Patient is seen in follow-up for end-stage renal disease. She is maintained on hemodialysis 4 days a week. Tolerated 4 L ultrafiltration yesterday. Vital signs are stable. General: Resting in bed. HEENT: On BiPAP. LUNGS: No audible rhonchi or wheezes. HEART: Rate and Rhythm are regular. ABDOMEN: Nontender. EXTREMITITES: Trace edema. Objective - Vital Signs Vital signs: Vital Signs Temp 97.8 F 03/16/24 04:00 Pulse 90 03/16/24 08:00 Resp 16 03/16/24 08:00 BP 135/87 03/16/24 08:00 Pulse Ox 95 03/16/24 08:35 FiO2 40 03/16/24 08:35 Intake & Output 03/15/24 03/16/24 03/16/24 18:59 06:59 18:59 Intake Total 1352 295 472 Output Total 4400 Balance -3048 295 472 Intake: IV 10 Invasive Line 1 10 Oral 942 472 Blood Product 0 295 Rc Pheresis As-3 Unit 0 295 [id number] Hemodialysis 400 Output: Hemodialysis 4400 Other: Voiding Method Bedside Commode # Voids 0 - Labs CBC & Chem 7: 03/15/24 14:53 03/15/24 14:53 Labs: Abnormal Lab Results - Last 24 Hours (Table) 03/15/24 03/15/24 03/15/24 Range/Units 10:52 14:53 14:53 WBC 11.4 H (3.8-10.6) k/uL RBC 2.18 L (3.80-5.40) m/uL Hgb 6.9 L* D (11.4-16.0) gm/dL Hct 21.8 L (34.0-46.0) % Neutrophils # 8.5 H (1.3-7.7) k/uL Lymphocytes # 0.7 L (1.0-4.8) k/uL Eosinophils # 1.0 H (0-0.7) k/uL Sodium 132 L (137-145) mmol/L Chloride 97 L (98-107) mmol/L Creatinine 2.22 H (0.52-1.04) mg/dL Glucose 167 H (74-99) mg/dL POC Glucose (mg/dL) 52 L (70-110) mg/dL Calcium 8.3 L (8.4-10.2) mg/dL Crossmatch 03/15/24 03/15/24 03/15/24 Range/Units 16:07 16:24 20:09 WBC (3.8-10.6) k/uL RBC (3.80-5.40) m/uL Hgb (11.4-16.0) gm/dL Hct (34.0-46.0) % Neutrophils # (1.3-7.7) k/uL Lymphocytes # (1.0-4.8) k/uL Eosinophils # (0-0.7) k/uL Sodium (137-145) mmol/L Chloride (98-107) mmol/L Creatinine (0.52-1.04) mg/dL Glucose (74-99) mg/dL POC Glucose (mg/dL) 255 H 320 H (70-110) mg/dL Calcium (8.4-10.2) mg/dL Crossmatch See Detail 03/16/24 03/16/24 03/16/24 Range/Units 01:55 06:09 06:10 WBC (3.8-10.6) k/uL RBC (3.80-5.40) m/uL Hgb (11.4-16.0) gm/dL Hct (34.0-46.0) % Neutrophils # (1.3-7.7) k/uL Lymphocytes # (1.0-4.8) k/uL Eosinophils # (0-0.7) k/uL Sodium (137-145) mmol/L Chloride (98-107) mmol/L Creatinine (0.52-1.04) mg/dL Glucose (74-99) mg/dL POC Glucose (mg/dL) 213 H 34 L 34 L (70-110) mg/dL Calcium (8.4-10.2) mg/dL Crossmatch Assessment and Plan Plan: Assessment: 1. End-stage renal disease maintained on hemodialysis Wednesday. 2. Acute hypoxic respiratory failure. 3. Volume overload. 4. Acute on chronic diastolic CHF. 5. Diabetes mellitus. 6. Hypertensive urgency. Improved. 7. Anemia of chronic kidney disease maintained on Aranesp. Status post blood transfusion this admission. Denies any active bleeding. 8. Chronic kidney disease mineral bone disease maintained on Renvela. Plan: Hemodialysis today. Wean FiO2. Check phosphorus level.
--- NOTE | 2024-03-16 10:34 | P.PN ---
Subjective HISTORY OF PRESENT ILLNESS: This is a 34-year-old female with a past medical history significant for type 1 diabetes, hypertension, chronic kidney disease on hemodialysis, depression, anxiety, and hyperlipidemia. Patient follows in the office with Dr. Avila. We have been asked to see the patient in consultation for CHF. Patient examined at the bedside in the emergency room. Patient presented to the hospital with a chief complaint of shortness of breath. Patient also reports having chest pain and feels like an elephant is sitting on her chest. She states she has been attending dialysis regularly with no missed sessions. She states that her most recent session she had 4 L of fluid removed. She states at home she has been gaining approximately 3 to 4 pounds a day for the past few days. Patient's blood pressure was elevated upon admission to the hospital with a reading of 175/98. She was also tachycardic with heart rate around 120. DIAGNOSTICS: - EKG reveals sinus tachycardia with no signs of acute ischemia. - Chest xray interval worsening edema. Tiny right effusion suspected. Stable cardiomegaly.. - Laboratory data: WBC 12.6. Hemoglobin 9.0. Platelet count 253. Sodium 139. Potassium 4.8. BUN 37. Creatinine 4.04. Lactic acid 1.0. Magnesium 1.8. Troponin negative x 1. proBNP 22,200. - Current home cardiac medication list has not been updated at the time of examination - Most recent echocardiogram obtained in December 2023 revealed ejection fraction 55 to 60%, mild MR, mild TR, and a small pericardial effusion with no tamponade physiology -Limited echo obtained on 02/06/2024 revealed ejection fraction 55 to 60% with small pericardial effusion with no tamponade physiology. -Patient underwent HAYDER on 12/27/2023 secondary to bacteremia revealing aortic valve is tricuspid with normal function, mitral valve appears to be normal with mild MR, tricuspid valve is normal with no vegetation, the intra-atrial septum is intact. No evidence of PFO. Left atrial appendage is free of clot. Left ventricular ejection fraction 55%, no vegetation noted. Dialysis catheter noted in the right atrium with no vegetation noted on catheter. 03/15/2024 Patient examined this morning the bedside. Patient is currently undergoing hemodialysis. Patient states she has been sleeping a lot since being admitted to the hospital. She reports back pain when she is coughing. She also reports chest pain with deep inspiration. Vital signs are stable. Blood pressure is much better controlled today. Blood pressure this morning 157/88. 03/16/2024 Patient examined this morning at the bedside. Patient continues to report shortness of breath. She is currently on BiPAP at the time of examination. Patient states she is scheduled to undergo hemodialysis again today. PHYSICAL EXAM: VITAL SIGNS: Reviewed. GENERAL: Well-developed in no acute distress. HEENT: Head is normocephalic. Pupils are equal, round. Sclerae anicteric. Mucous membranes of the mouth are moist. Neck supple. No JVD or thyromegaly LUNGS: Respirations even and unlabored. Lungs essentially clear to auscultation bilaterally. HEART: Regular rate and rhythm. S1 and S2 heard. + systolic murmur. S4 noted. ABDOMEN: Soft. Nondistended. Nontender. EXTREMITIES: Normal range of motion. No clubbing or cyanosis. Peripheral pulses intact. Bilateral lower extremity edema noted. NEUROLOGIC: Awake and alert. Oriented x 3. ASSESSMENT: Shortness of breath Acute hypoxic respiratory failure requiring BiPAP Acute on chronic heart failure with preserved ejection fraction likely more related to CKD/volume overload Hypertensive urgency End-stage renal disease on hemodialysis, Wednesday Leukocytosis Anemia of chronic disease History of hypertension History of hyperlipidemia Type 1 diabetes History of CVA, 2023 History of seizure Hypothyroidism Chronic pain syndrome PLAN: No need to repeat echocardiogram as this was performed last month Continue current cardiac medications Hemodialysis per nephrology Continue to monitor blood pressure Patient currently stable from a cardiac perspective Further recommendations pending patient course Nurse practitioner note has been reviewed by physician. Signing provider agrees with the documented findings, assessment, and plan of care documented by MANAGER [employer] as a scribe. Objective - Vital Signs Vital signs: Vital Signs Temp 97.8 F 03/16/24 04:00 Pulse 90 03/16/24 08:00 Resp 16 03/16/24 08:00 BP 135/87 03/16/24 08:00 Pulse Ox 95 03/16/24 08:35 FiO2 40 03/16/24 08:35 Intake & Output 03/15/24 03/16/24 03/16/24 18:59 06:59 18:59 Intake Total 1352 295 472 Output Total 4400 Balance -3048 295 472 Intake: IV 10 Invasive Line 1 10 Oral 942 472 Blood Product 0 295 Rc Pheresis As-3 Unit 0 295 [id number] Hemodialysis 400 Output: Hemodialysis 4400 Other: Voiding Method Bedside Commode # Voids 0 - Labs CBC & Chem 7: 03/15/24 14:53 03/15/24 14:53 Labs: Abnormal Lab Results - Last 24 Hours (Table) 03/15/24 03/15/24 03/15/24 Range/Units 10:52 14:53 14:53 WBC 11.4 H (3.8-10.6) k/uL RBC 2.18 L (3.80-5.40) m/uL Hgb 6.9 L* D (11.4-16.0) gm/dL Hct 21.8 L (34.0-46.0) % Neutrophils # 8.5 H (1.3-7.7) k/uL Lymphocytes # 0.7 L (1.0-4.8) k/uL Eosinophils # 1.0 H (0-0.7) k/uL Sodium 132 L (137-145) mmol/L Chloride 97 L (98-107) mmol/L Creatinine 2.22 H (0.52-1.04) mg/dL Glucose 167 H (74-99) mg/dL POC Glucose (mg/dL) 52 L (70-110) mg/dL Calcium 8.3 L (8.4-10.2) mg/dL Crossmatch 03/15/24 03/15/24 03/15/24 Range/Units 16:07 16:24 20:09 WBC (3.8-10.6) k/uL RBC (3.80-5.40) m/uL Hgb (11.4-16.0) gm/dL Hct (34.0-46.0) % Neutrophils # (1.3-7.7) k/uL Lymphocytes # (1.0-4.8) k/uL Eosinophils # (0-0.7) k/uL Sodium (137-145) mmol/L Chloride (98-107) mmol/L Creatinine (0.52-1.04) mg/dL Glucose (74-99) mg/dL POC Glucose (mg/dL) 255 H 320 H (70-110) mg/dL Calcium (8.4-10.2) mg/dL Crossmatch See Detail 03/16/24 03/16/24 03/16/24 Range/Units 01:55 06:09 06:10 WBC (3.8-10.6) k/uL RBC (3.80-5.40) m/uL Hgb (11.4-16.0) gm/dL Hct (34.0-46.0) % Neutrophils # (1.3-7.7) k/uL Lymphocytes # (1.0-4.8) k/uL Eosinophils # (0-0.7) k/uL Sodium (137-145) mmol/L Chloride (98-107) mmol/L Creatinine (0.52-1.04) mg/dL Glucose (74-99) mg/dL POC Glucose (mg/dL) 213 H 34 L 34 L (70-110) mg/dL Calcium (8.4-10.2) mg/dL Crossmatch
[2024-03-16 11:56] LABS: Glucose,Whole Blood 64 mg/dL (70-110)
[2024-03-16 12:01] LABS: Basophils # (A) 0.1 k/uL (0-0.2); Basophils % (A) 1 %; Eosinophils # (A) 1.4 k/uL (0-0.7); Eosinophils % (A) 14 %; HCT 21.5 % (34.0-46.0); HGB 7.4 gm/dL (11.4-16.0); Lymphocytes # (A) 0.6 k/uL (1.0-4.8); Lymphocytes % (A) 5 %; MCH 33.6 pg (25.0-35.0); MCHC 34.4 g/dL (31.0-37.0); MCV 97.7 fL (80.0-100.0); Mean Platelet Volume 8.7; Monocytes # (A) 0.7 k/uL (0-1.0); Monocytes % (A) 6 %; Neutrophils # (A) 7.8 k/uL (1.3-7.7); Neutrophils % (A) 74 %; Platelet Count 207 k/uL (150-450); RDW 15.5 % (11.5-15.5); WBC 10.6 k/uL (3.8-10.6)
[2024-03-16 12:32] LABS: Glucose,Whole Blood 64 mg/dL (70-110)
[2024-03-16 12:43] LABS: Glucose,Whole Blood 75 mg/dL (70-110)
--- NOTE | 2024-03-16 12:46 | P.CONS ---
History of Present Illness - Reason for Consult Consult date: 03/16/24 Anemia Requesting physician: Yeni Blackburn - Chief Complaint Shortness of breath, hypoxemia - History of Present Illness This is a pleasant 34-year-old female who presented to the emergency department [address] [facility] for shortness of breath and increased need for oxygen and requiring BiPAP. She has a past medical history for type I diabetes mellitus, hypertension, end-stage renal disease on dialysis, chronic anemia, seizure disorder, and thyroid disorder. She undergoes hemodialysis Tuesdays, and Saturdays. She was admitted for pulmonary edema, fluid overload and complaints chest pain. Patient has a history of chronic anemia she was admitted with a hemoglobin of 9.0 with a drop to 6.9 yesterday and was transfused 1 unit of blood. Gastr oenterology was consulted for anemia. Trending patient's labs that she has had longstanding history of anemia likely secondary to chronic disease. She did have a workup during her last admission and underwent upper endoscopy with Dr. Hawthorne on 02/10/2024 with findings of mild antral gastritis and gastroparesis. She denies any abdominal pain, nausea or vomiting. Denies any blood in her stool or black stool. She is not on any anticoagulation and denies any NSAID use. Patient is currently on BiPAP during this examination she is scheduled to undergo hemodialysis today. She continues to report shortness of breath. Review of Systems REVIEW OF SYSTEMS: CARDIOPULMONARY: No chest pain, shortness of breath. Gastrointestinal: No abdominal or epigastric pain. No nausea or vomiting. No hematemesis, coffee-ground emesis. No rectal bleeding, or melena. GENITOURINARY: No dysuria or hematuria. MUSCULOSKELETAL: Reports normal range of motion. SKIN: No rashes. No jaundice. ENDOCRINE: No chills, fevers. No excessive weight gain or loss. No polydipsia or polyuria. PSYCHIATRIC: Unremarkable. NEUROLOGY: No change in mental status. Denies dizziness, headache. ENT: Vision unremarkable. CONSTITUTIONAL: No recent weight loss. No fever, chills, night sweats. Past Medical History Past Medical History: Diabetes Mellitus, GERD/Reflux, Hypertension, Renal Disease, Seizure Disorder, Thyroid Disorder Additional Past Medical History / Comment(s): Neuropathy, last seizure 2020, gastroparesis, headaches with dialysis, states "fast heart rate" since giving ., receives Hemodialysis Wednesday- and Saturdays at [facility] right chest hemodialysis catheter., severe HTN. patient awaiting Kidney and Pancrease Transplant. , states sometimes she has had stroke -like symptoms but no stroke., hx of c-diff 2013. History of Any Multi-Drug Resistant Organisms: None Reported Year Discovered:: None MDRO Source:: None Past Surgical History: Adenoidectomy, Section, Cholecystectomy, Orthopedic Surgery, Tonsillectomy Additional Past Surgical History / Comment(s): 2 KNEE SCOPES, EAR TUBES, additional left knee surgery related to fracture, new port a cath jul 29, eye surgeries for diabetic retinopathy. Past Anesthesia/Blood Transfusion Reactions: Previous Problems w/ Anesthesia Additional Past Anesthesia/Blood Transfusion Reaction / Comm: confusion Past Psychological History: Anxiety, Depression Smoking Status: Former smoker Past Alcohol Use History: None Reported Additional Past Alcohol Use History / Comment(s): quit smoking 01/08 hx of up to 3 ppd. Past Drug Use History: Marijuana, Methamphetamine Additional Drug Use History / Comment(s): previously using marijuana edibles in nov 2023. Not eating currently - Past Family History Father Family Medical History: Unable to Obtain Mother Family Medical History: No Reported History Grandfather Family Medical History: Coronary Artery Disease (CAD) Additional Family Medical History / Comment(s): Diabetes mellitus type 2 Medications and Allergies Home Medications Medication Instructions Recorded Confirmed Type Levothyroxine Sodium [Synthroid] 175 mcg PO DAILY@0600 10/22/23 03/14/24 History Sertraline [Zoloft] 200 mg PO DAILY@79910/22/23 03/14/24 History Atorvastatin [Lipitor] 40 mg PO HS@209912/27/23 03/14/24 History Divalproex ER [Depakote ER] 500 mg PO BID@0800,1700 12/27/23 03/14/24 History Ondansetron [Zofran] 4 mg PO Q8HR PRN 12/27/23 03/14/24 History Pantoprazole [Protonix] 40 mg PO DAILY@0600 12/27/23 03/14/24 History Mcculloch Caps 1 cap PO HS@209912/27/23 03/14/24 History methocarbamoL [Robaxin-750] 750 mg PO QID@02,,,17 12/27/23 03/14/24 History Aspirin 81 mg PO DAILY@0800 02/05/24 03/14/24 History Docusate [Colace] 100 mg PO DAILY@0800 02/05/24 03/14/24 History Lidocaine 4% Patch 1 patch TOPICAL DAILY@0800 02/05/24 03/14/24 History Magnesium Hydroxide [Milk of 7,200 mg PO DAILY PRN 02/05/24 03/14/24 History Magnesia Concentrate] NIFEdipine XL [Procardia XL] 60 mg PO BID@0800,1700 02/05/24 03/14/24 History Sevelamer [Renvela] 1,600 mg PO AC-TID@07,11,1630 02/05/24 03/14/24 History Torsemide [Demadex] 40 mg PO DAILY@0800 02/05/24 03/14/24 History bisacodyL [Dulcolax] 10 mg RECTAL DAILY PRN 02/05/24 03/14/24 History Ipratropium-Albuterol Nebulize 3 ml INHALATION RT-TID PRN each 02/14/24 03/14/24 Rx [Duoneb 0.5 mg-3 mg/3 ml Soln] Isosorbide Mononitrate ER [Imdur] 30 mg PO DAILY tab 02/14/24 03/14/24 Rx Metoclopramide [Reglan] 5 mg PO AC-TID tab 02/14/24 03/14/24 Rx polyethylene glycoL 3350 [Miralax] 17 gm PO AC-LUNCH #527 gm 02/14/24 03/14/24 Rx Acetaminophen [Tylenol] 650 mg PO Q4H PRN 02/18/24 03/14/24 History Biotene Dry Mouth/Throat 10 ml PO BID PRN 02/18/24 03/14/24 History ALPRAZolam [Xanax] 0.5 mg PO BID PRN #20 tab 02/25/24 03/14/24 Rx Baclofen [Lioresal] 10 mg PO TID PRN tab 02/25/24 03/14/24 Rx Melatonin 1 mg PO HS tab 02/25/24 03/14/24 Rx hydrALAZINE HCL [Apresoline] 150 mg PO TID tab 02/25/24 03/14/24 Rx minoxidiL [Loniten] 2.5 mg PO DAILY tab 02/25/24 03/14/24 Rx traZODone HCL [Desyrel] 50 mg PO HS tab 02/25/24 03/14/24 Rx Butalb/APAP/Caff 50-325-40Mg 1 tab PO Q4HR PRN 03/14/24 03/14/24 History [Fioricet 50-325-40] Darbepoetin Artur [Aranesp] 40 mcg SQ MO 03/14/24 03/14/24 History HYDROcodone/APAP 7.5-325MG [Florien 1 tab PO Q8HR PRN 03/14/24 03/14/24 History 7.5-325] Insulin Aspart (For Pump) [NovoLOG 0.01 unit SQ-PUMP CONTINUOUS 03/14/24 03/14/24 History (For Pump)] Insulin Glargine [Lantus Vial] 25 unit SQ HS 03/14/24 03/14/24 History Labetalol [Trandate] 400 mg PO BID@0800,1700 03/14/24 03/14/24 History Menthol [Biofreeze] 1 applic TOPICAL BID PRN 03/14/24 03/14/24 History Sevelamer [Renvela] 800 mg PO HS 03/14/24 03/14/24 History cloNIDine HCL [Catapres] 0.3 mg PO TID 03/14/24 03/14/24 History Allergies Allergy/AdvReac Type Severity Reaction Status Date / Time hydromorphone HCl Allergy Anaphylaxis Verified 03/14/24 10:00 [From Dilaudid] propoxyphene Allergy Rash/Hives Verified 03/14/24 10:00 [From Darvocet-N] tramadol Allergy Anaphylaxis Verified 03/14/24 10:00 ibuprofen [From Motrin] AdvReac unable to Verified 03/14/24 10:00 take due to kidney disease venom-honey bee AdvReac passes out Verified 03/14/24 10:00 [bee venom (honey bee)] Physical Exam Vitals: Vital Signs Temp Pulse Pulse Pulse Resp BP BP 03/16/24 08:35 03/16/24 08:00 90 16 135/87 03/16/24 04:00 97.8 F 78 19 124/72 03/16/24 02:00 98.6 F 82 19 168/92 03/15/24 20:55 98.8 F 80 17 173/94 03/15/24 20:00 98.9 F 80 19 173/94 03/15/24 18:37 92 03/15/24 18:30 98.3 F 92 16 137/82 03/15/24 18:27 92 03/15/24 18:10 98.7 F 98 16 148/88 03/15/24 18:00 98.3 F 91 16 146/80 03/15/24 14:00 98.9 F 85 16 128/77 03/15/24 13:58 98.9 F 83 18 129/74 Pulse Ox FiO2 03/16/24 08:35 95 40 03/16/24 08:00 93 L 40 03/16/24 04:00 93 L 03/16/24 02:00 95 03/15/24 20:55 03/15/24 20:00 94 L 03/15/24 18:37 03/15/24 18:30 03/15/24 18:27 03/15/24 18:10 03/15/24 18:00 03/15/24 14:00 94 L 03/15/24 13:58 Intake and Output 03/15/24 03/16/24 03/16/24 22:59 06:59 14:59 Intake Total 517 472 Balance 517 472 Intake: Oral 222 472 Blood Product 295 Rc Pheresis As-3 Unit 295 [id number] Other: Voiding Method Bedside Commode Bedside Commode # Voids 0 General appearance: The patient is alert, oriented, currently on BiPAP, appears in no acute distress. HET: Head is normocephalic and atraumatic. Conjunctiva pink. Sclera anicteric. Neck: Supple without lymphadenopathy. Trachea midline. Heart: Regular. Lungs: Equal expansion, normal respiratory effort. Abdomen: Soft, nontender, nondistended. Skin: No rashes. No jaundice. Extremities: Normal skin color and turgor. Lower extremity edema. Neurological: No focal deficits. Alert and oriented x3. Results CBC & Chem 7: 03/16/24 11:23 03/15/24 14:53 Labs: Abnormal Lab Results - Last 24 Hours (Table) 03/15/24 03/15/24 03/15/24 Range/Units 10:52 14:53 14:53 WBC 11.4 H (3.8-10.6) k/uL RBC 2.18 L (3.80-5.40) m/uL Hgb 6.9 L* D (11.4-16.0) gm/dL Hct 21.8 L (34.0-46.0) % Neutrophils # 8.5 H (1.3-7.7) k/uL Lymphocytes # 0.7 L (1.0-4.8) k/uL Eosinophils # 1.0 H (0-0.7) k/uL Sodium 132 L (137-145) mmol/L Chloride 97 L (98-107) mmol/L Creatinine 2.22 H (0.52-1.04) mg/dL Glucose 167 H (74-99) mg/dL POC Glucose (mg/dL) 52 L (70-110) mg/dL Calcium 8.3 L (8.4-10.2) mg/dL Crossmatch 03/15/24 03/15/24 03/15/24 Range/Units 16:07 16:24 20:09 WBC (3.8-10.6) k/uL RBC (3.80-5.40) m/uL Hgb (11.4-16.0) gm/dL Hct (34.0-46.0) % Neutrophils # (1.3-7.7) k/uL Lymphocytes # (1.0-4.8) k/uL Eosinophils # (0-0.7) k/uL Sodium (137-145) mmol/L Chloride (98-107) mmol/L Creatinine (0.52-1.04) mg/dL Glucose (74-99) mg/dL POC Glucose (mg/dL) 255 H 320 H (70-110) mg/dL Calcium (8.4-10.2) mg/dL Crossmatch See Detail 03/16/24 03/16/24 03/16/24 Range/Units 01:55 06:09 06:10 WBC (3.8-10.6) k/uL RBC (3.80-5.40) m/uL Hgb (11.4-16.0) gm/dL Hct (34.0-46.0) % Neutrophils # (1.3-7.7) k/uL Lymphocytes # (1.0-4.8) k/uL Eosinophils # (0-0.7) k/uL Sodium (137-145) mmol/L Chloride (98-107) mmol/L Creatinine (0.52-1.04) mg/dL Glucose (74-99) mg/dL POC Glucose (mg/dL) 213 H 34 L 34 L (70-110) mg/dL Calcium (8.4-10.2) mg/dL Crossmatch Comments: Chest x-ray reports interval worsening edema. Tiny right effusion suspected. Stable cardiomegaly. Low lung volume. Assessment and Plan (1) Normocytic normochromic anemia Narrative/Plan: 34-year-old female presenting with shortness of breath noted to be hypoxic with multiple comorbidities including type 1 diabetes mellitus, end-stage renal disease on hemodialysis, seizure disorder, thyroid disorder and anemia of chronic disease and maintain on Aranesp currently admitted for pulmonary edema and fluid overload. Again has a history of chronic anemia she came in with a hemoglobin of 9.0 with a drop to 6.9 however patient denies any blood in her stool, black stool, nausea vomiting or hematemesis. She just underwent recent upper endoscopy with Dr. Bella for anemia on 02/10/2024 with findings of mild gastritis, and retained food in the stomach consistent with gastroparesis. Normocytic normochromic anemia which is often seen with her history of anemia of chronic disease. With recent endoscopy and no complaints of bleeding as well as patient's poor respiratory status no plans on endoscopic evaluation. Iron studies ordered. Transfuse as needed. Continue with recommendations from nephrology. Current Visit: Yes Status: Acute Code(s): D64.9 - ANEMIA, UNSPECIFIED SNOMED Code(s): 42508799 (2) Acute respiratory failure Current Visit: Yes Status: Acute Code(s): J96.00 - ACUTE RESPIRATORY FAILURE, UNSP W HYPOXIA OR HYPERCAPNIA SNOMED Code(s): 34856775 (3) ESRD (end stage renal disease) Current Visit: Yes Status: Acute Code(s): N18.6 - END STAGE RENAL DISEASE SNOMED Code(s): 45690319 (4) Acute pulmonary edema Current Visit: No Status: Acute Code(s): J81.0 - ACUTE PULMONARY EDEMA SNOMED Code(s): 76575352 (5) Gastroparesis Current Visit: Yes Status: Acute Code(s): K31.84 - GASTROPARESIS SNOMED Code(s): 342527383 Plan: 1. Continue symptomatic and supportive care 2. Daily CBC, transfuse for hemoglobin less than 7 3. Iron studies ordered 4. Continue with recommendations from nephrology, patient maintained on Aranesp 5. No plans on endoscopic evaluation. Patient had recent upper endoscopy on 02/10/2024 with no evidence of GI bleed. Mild gastritis and gastroparesis noted 6. Medical management per primary medical team Thank you for this consultation, we will continue to follow. Dr. Jermain Castillo I agree with the dictator's note, documented as a scribe by Caitlyn Gipson.
[2024-03-16 13:23] LABS: African American GFR (CKD) 20 (>60 ml/min/1.73 sqM); Anion Gap 5 mmol/L; Blood Urea Nitrogen 34 mg/dL (7-17); Calcium 8.3 mg/dL (8.4-10.2); Carbon Dioxide 32 mmol/L (22-30); Chloride 96 mmol/L (98-107); Non-African American GFR(CKD) 17 (>60 ml/min/1.73 sqM); Phosphorus 4.7 mg/dL (2.5-4.5); Sodium 133 mmol/L (137-145)
[2024-03-16 13:32] LABS: Glucose 46 mg/dL (74-99)
--- NOTE | 2024-03-16 14:48 | P.PN ---
Subjective Progress Note Date: 03/16/24 34-year-old female came in with complaints of shortness of breath and patient is presently on BiPAP.. Patient has history of end-stage renal disease on hemodialysis did not miss any hemodialysis as per the patient patient is found to have severe pulmonary edema and and patient is undergoing hemodialysis with removal of the 3.5 L of fluid. Patient blood pressure is high. Patient had normal ejection fraction does not have any history of heart failure patient does not urinate much. Patient is complaining of pain in the chest because of which cardiology evaluated the patient, EKG did not show any acute ST-T wave changes. 1 set of troponin is within normal limits patient's proBNP is elevated to 22,200. Patient has not had any fever chills patient does have leukocytosis 12,600 03/15/2024 Patient is evaluated today resting in bed during hemodialysis. She continues to report significant nausea as well as her chronic back pain. Patient is requesting additional nausea medication. Patient was started on a heart healthy diet which was not started until this morning unfortunately she did not get any dinner and was given a dose of Levemir 40 units at at bedtime due to increased blood glucose and blood sugar was down until 33 today because she is currently up to 74. Would recommend to hold the evening dose of Levemir for blood glucose remains below 100. Levemir was also decreased back to her usual dose of 25 units at bedtime. Patient continues on 3 L of oxygen. Patient is a /Wed/Wednesday hemodialysis patient although has been getting hemodialysis 4 to 5 times weekly on an outpatient basis and has not been complaint with fluid restrictions. 03/16/2024 Patient is seen and evaluated in follow-up today with multiple medical consultations following. Patient receiving hemodialysis today. Patient continues to report significant shortness of breath and had been requesting Bi PAP. Patient chronically wears oxygen in the outpatient setting. Patient's blood sugars have been on the lower side and will adjust long-acting send continue with sliding scales and Accu-Cheks before meals and at bedtime and at 2 AM. No active bleeding noted and patient's hemoglobin is stable at 7.4. GI was consulted for anemia and ordered iron studies with no plans of surgical endoscopic intervention at this time. Patient recently had endoscopy with general surgery last admission. Patient is afebrile reporting continued weakness and awaiting PT/OT therapy. Patient currently resides at [facility] and plans on returning there. Will follow-up with consultations regarding discharge planning in the next 24 to 48 hours Review of Systems Constitutional: Denied any fatigue denied any fever. Cardio vascular: denied any chest pain, palpitations Gastrointestinal: Reports nausea, no reports of vomiting, no diarrhea Pulmonary: Reports continued shortness of breath Neurologic denied any new focal deficits, diffusely weak All inpatient medications were reviewed and appropriate changes in these medications as dictated in the interval history and assessment and plan. PHYSICAL EXAMINATION: GENERAL: The patient is lethargic although arousable, alert and oriented x3, not in any acute distress. Well developed, well nourished. On BiPAP HEENT: Pupils are round and equally reacting to light. EOMI. No scleral icterus. No conjunctival pallor. Normocephalic, atraumatic. No pharyngeal erythema. No thyromegaly. CARDIOVASCULAR: S1 and S2 present. No murmurs, rubs, or gallops. PULMONARY: Chest is clear to auscultation, no wheezing. Patient has crackles posteriorly ABDOMEN: Soft, nontender, nondistended, normoactive bowel sounds. No palpable organomegaly. MUSCULOSKELETAL: No joint swelling or deformity. EXTREMITIES: No cyanosis, clubbing, or pedal edema. NEUROLOGICAL: Gross neurological examination did not reveal any focal deficits. Diffuse weakness SKIN: No rashes. Assessment and plan -Acute respiratory failure secondary to pulmonary edema from end-stage renal disease patient is undergoing hemodialysis received IV Lasix. -Nausea secondary to uremia and end-stage renal disease continues on antiemetics, continue oral Compazine as needed -History of gastroparesis maintained on Reglan on an outpatient basis -Anemia, likely chronic with chronic kidney disease -Leukocytosis reactive in nature -Chest pressure which appears more musculoskeletal in nature, pain is reproduc ible with palpation. Patient states this is from coughing. -Hypertension uncontrolled elevated , improved with hemodialysis -Gastroesophageal reflux disease -End-stage renal disease -Seizure disorder -Hypothyroidism -Chronic pain patient continues on oral Chappell as well as baclofen, methocarbamol while as needed -Depression DVT prophylaxis: Subcutaneous heparin GI prophylaxis Full Code PT/OT consulted and patient will be returning to [facility] on discharge once cleared by consultations, continue with hemodialysis per nephrology. Patient is to receive hemodialysis today. Patient was evaluated by GI, ordered iron studies which are pending. No plans for endoscopic intervention at this time. Patient had endoscopy on admission in January, showing antral gastritis and gastroparesis. Hemoglobin is stable at 7.4 today no active bleeding noted Case management following and plan is to return to [facility] once stabilized and cleared by consultations. Awaiting PT/OT therapy Blood sugars have been uncontrolled and abnormal including hypoglycemia and will adjust insulins accordingly. Continue monitoring Accu-Cheks before meals and at bedtime as well as 2 AM Possible discharge planning to [facility] in the next 24 to 48 hours The impression and plan of care has been dictated by Margie Urbina, Nurse Practitioner as directed. Dr. Connie MD I have performed a history and physical examination and medical decision making of this patient, discussed the same with the dictator, and agree with the dictators assessment and plan as written, documented as a scribe. Based on total visit time, I have performed more than 50% of this visit. Objective - Vital Signs Vital signs: Vital Signs Temp 97.8 F 03/16/24 04:00 Pulse 78 03/16/24 04:00 Resp 19 03/16/24 04:00 BP 124/72 03/16/24 04:00 Pulse Ox 95 03/16/24 08:35 FiO2 40 03/16/24 08:35 Intake & Output 03/15/24 03/16/24 03/16/24 18:59 06:59 18:59 Intake Total 1352 295 472 Output Total 4400 Balance -3048 295 472 Intake: IV 10 Invasive Line 1 10 Oral 942 472 Blood Product 0 295 Rc Pheresis As-3 Unit 0 295 [id number] Hemodialysis 400 Output: Hemodialysis 4400 Other: Voiding Method Bedside Commode - Labs CBC & Chem 7: 03/16/24 11:23 03/16/24 11:23 Labs: Abnormal Lab Results - Last 24 Hours (Table) 03/15/24 03/15/24 03/15/24 Range/Units 10:52 14:53 14:53 WBC 11.4 H (3.8-10.6) k/uL RBC 2.18 L (3.80-5.40) m/uL Hgb 6.9 L* D (11.4-16.0) gm/dL Hct 21.8 L (34.0-46.0) % Neutrophils # 8.5 H (1.3-7.7) k/uL Lymphocytes # 0.7 L (1.0-4.8) k/uL Eosinophils # 1.0 H (0-0.7) k/uL Sodium 132 L (137-145) mmol/L Chloride 97 L (98-107) mmol/L Creatinine 2.22 H (0.52-1.04) mg/dL Glucose 167 H (74-99) mg/dL POC Glucose (mg/dL) 52 L (70-110) mg/dL Calcium 8.3 L (8.4-10.2) mg/dL Crossmatch 03/15/24 03/15/24 03/15/24 Range/Units 16:07 16:24 20:09 WBC (3.8-10.6) k/uL RBC (3.80-5.40) m/uL Hgb (11.4-16.0) gm/dL Hct (34.0-46.0) % Neutrophils # (1.3-7.7) k/uL Lymphocytes # (1.0-4.8) k/uL Eosinophils # (0-0.7) k/uL Sodium (137-145) mmol/L Chloride (98-107) mmol/L Creatinine (0.52-1.04) mg/dL Glucose (74-99) mg/dL POC Glucose (mg/dL) 255 H 320 H (70-110) mg/dL Calcium (8.4-10.2) mg/dL Crossmatch See Detail 03/16/24 03/16/24 03/16/24 Range/Units 01:55 06:09 06:10 WBC (3.8-10.6) k/uL RBC (3.80-5.40) m/uL Hgb (11.4-16.0) gm/dL Hct (34.0-46.0) % Neutrophils # (1.3-7.7) k/uL Lymphocytes # (1.0-4.8) k/uL Eosinophils # (0-0.7) k/uL Sodium (137-145) mmol/L Chloride (98-107) mmol/L Creatinine (0.52-1.04) mg/dL Glucose (74-99) mg/dL POC Glucose (mg/dL) 213 H 34 L 34 L (70-110) mg/dL Calcium (8.4-10.2) mg/dL Crossmatch
[2024-03-16 16:22] LABS: Glucose,Whole Blood 234 mg/dL (70-110)
[2024-03-16 19:20] LABS: % Iron Saturation 11.34 (12.00-45.00); Iron 27 UG/DL (50-170); Total Iron Binding Capacity 238 UG/DL (228-460)
[2024-03-16 19:52] LABS: Glucose,Whole Blood 355 mg/dL (70-110)
[2024-03-16] MEDS: INSULIN DETEMIR (LEVEMIR) 100 UNIT/ML SYR SQ SCH (20:58)
[2024-03-17] MEDS: MORPHINE SULFATE 2 MG/ML SYRINGE IVP STA (02:39)
[2024-03-17 02:40] LABS: Glucose,Whole Blood 283 mg/dL (70-110)
[2024-03-17 06:28] LABS: Glucose,Whole Blood 315 mg/dL (70-110)
[2024-03-17 09:07] LABS: Basophils # (A) 0.1 k/uL (0-0.2); Basophils % (A) 0 %; Eosinophils # (A) 0.9 k/uL (0-0.7); Eosinophils % (A) 6 %; HCT 25.7 % (34.0-46.0); HGB 8.2 gm/dL (11.4-16.0); Lymphocytes # (A) 0.8 k/uL (1.0-4.8); Lymphocytes % (A) 6 %; MCV 99.9 fL (80.0-100.0); Macrocytosis Slight; Mean Platelet Volume 8.7; Monocytes % (A) 7 %; Neutrophils # (A) 11.4 k/uL (1.3-7.7); Neutrophils % (A) 80 %; Platelet Count 256 k/uL (150-450); RBC 2.57 m/uL (3.80-5.40); RDW 14.9 % (11.5-15.5); WBC 14.2 k/uL (3.8-10.6)
[2024-03-17 09:08] LABS: ALT 30 U/L (4-34); AST 19 U/L (14-36); African American GFR (CKD) 20 (>60 ml/min/1.73 sqM); Albumin 3.7 g/dL (3.5-5.0); Alkaline Phosphatase 90 U/L (38-126); Anion Gap 14 mmol/L; Blood Urea Nitrogen 26 mg/dL (7-17); Calcium 8.7 mg/dL (8.4-10.2); Carbon Dioxide 25 mmol/L (22-30); Chloride 91 mmol/L (98-107); Glucose 225 mg/dL (74-99); Magnesium 1.7 mg/dL (1.6-2.3); Non-African American GFR(CKD) 17 (>60 ml/min/1.73 sqM); Potassium 4.3 mmol/L (3.5-5.1); Sodium 130 mmol/L (137-145); Total Bilirubin 0.8 mg/dL (0.2-1.3)
[2024-03-17] MEDS: INSULIN DETEMIR (LEVEMIR) 100 UNIT/ML SYR SQ SCH (09:19)
--- NOTE | 2024-03-17 10:28 | P.PN ---
Subjective Patient is seen in follow-up for end-stage renal disease. She is maintained on hemodialysis 4 days a week. Tolerated 4 L ultrafiltration yesterday. Now on nasal cannula. Vital signs are stable. General: Resting in bed. HEENT: On nasal cannula. LUNGS: No audible rhonchi or wheezes. HEART: Rate and Rhythm are regular. ABDOMEN: Nontender. EXTREMITITES: Trace edema. Objective - Vital Signs Vital signs: Vital Signs Temp 99.2 F 03/17/24 04:00 Pulse 70 03/17/24 08:00 Resp 16 03/17/24 08:00 BP 148/90 03/17/24 08:00 Pulse Ox 96 03/17/24 10:16 FiO2 40 03/16/24 12:03 Intake & Output 03/16/24 03/17/24 03/17/24 18:59 06:59 18:59 Intake Total 1034 980 472 Output Total 0 4500 Balance 1034 -3520 472 Weight 77.8 kg Intake: Oral 1034 480 472 Hemodialysis 500 Output: Urine 0 Hemodialysis 4500 Other: Voiding Method Bedside Commode Bedside Commode - Labs CBC & Chem 7: 03/17/24 07:54 03/17/24 07:54 Labs: Abnormal Lab Results - Last 24 Hours (Table) 03/16/24 03/16/24 03/16/24 Range/Units 11:23 11:23 11:54 WBC (3.8-10.6) k/uL RBC 2.20 L (3.80-5.40) m/uL Hgb 7.4 L (11.4-16.0) gm/dL Hct 21.5 L (34.0-46.0) % Neutrophils # 7.8 H (1.3-7.7) k/uL Lymphocytes # 0.6 L (1.0-4.8) k/uL Eosinophils # 1.4 H (0-0.7) k/uL Sodium 133 L (137-145) mmol/L Chloride 96 L (98-107) mmol/L Carbon Dioxide 32 H (22-30) mmol/L BUN 34 H (7-17) mg/dL Creatinine 3.37 H (0.52-1.04) mg/dL Glucose 46 L* (74-99) mg/dL POC Glucose (mg/dL) 64 L (70-110) mg/dL Calcium 8.3 L (8.4-10.2) mg/dL Phosphorus 4.7 H (2.5-4.5) mg/dL Iron 27 L (50-170) UG/DL % Saturation 11.34 L (12.00-45.00) Transferrin 170.0 L (204.0-354.0) mg/dL Ferritin 340.0 H (10.0-291.0) ng/mL Total Protein (6.3-8.2) g/dL 03/16/24 03/16/24 03/16/24 Range/Units 12:31 16:21 19:51 WBC (3.8-10.6) k/uL RBC (3.80-5.40) m/uL Hgb (11.4-16.0) gm/dL Hct (34.0-46.0) % Neutrophils # (1.3-7.7) k/uL Lymphocytes # (1.0-4.8) k/uL Eosinophils # (0-0.7) k/uL Sodium (137-145) mmol/L Chloride (98-107) mmol/L Carbon Dioxide (22-30) mmol/L BUN (7-17) mg/dL Creatinine (0.52-1.04) mg/dL Glucose (74-99) mg/dL POC Glucose (mg/dL) 64 L 234 H 355 H (70-110) mg/dL Calcium (8.4-10.2) mg/dL Phosphorus (2.5-4.5) mg/dL Iron (50-170) UG/DL % Saturation (12.00-45.00) Transferrin (204.0-354.0) mg/dL Ferritin (10.0-291.0) ng/mL Total Protein (6.3-8.2) g/dL 03/17/24 03/17/24 03/17/24 Range/Units 02:37 06:26 07:54 WBC 14.2 H (3.8-10.6) k/uL RBC 2.57 L (3.80-5.40) m/uL Hgb 8.2 L (11.4-16.0) gm/dL Hct 25.7 L (34.0-46.0) % Neutrophils # 11.4 H (1.3-7.7) k/uL Lymphocytes # 0.8 L (1.0-4.8) k/uL Eosinophils # 0.9 H (0-0.7) k/uL Sodium (137-145) mmol/L Chloride (98-107) mmol/L Carbon Dioxide (22-30) mmol/L BUN (7-17) mg/dL Creatinine (0.52-1.04) mg/dL Glucose (74-99) mg/dL POC Glucose (mg/dL) 283 H 315 H (70-110) mg/dL Calcium (8.4-10.2) mg/dL Phosphorus (2.5-4.5) mg/dL Iron (50-170) UG/DL % Saturation (12.00-45.00) Transferrin (204.0-354.0) mg/dL Ferritin (10.0-291.0) ng/mL Total Protein (6.3-8.2) g/dL 03/17/24 Range/Units 07:54 WBC (3.8-10.6) k/uL RBC (3.80-5.40) m/uL Hgb (11.4-16.0) gm/dL Hct (34.0-46.0) % Neutrophils # (1.3-7.7) k/uL Lymphocytes # (1.0-4.8) k/uL Eosinophils # (0-0.7) k/uL Sodium 130 L (137-145) mmol/L Chloride 91 L (98-107) mmol/L Carbon Dioxide (22-30) mmol/L BUN 26 H (7-17) mg/dL Creatinine 3.38 H (0.52-1.04) mg/dL Glucose 225 H (74-99) mg/dL POC Glucose (mg/dL) (70-110) mg/dL Calcium (8.4-10.2) mg/dL Phosphorus (2.5-4.5) mg/dL Iron (50-170) UG/DL % Saturation (12.00-45.00) Transferrin (204.0-354.0) mg/dL Ferritin (10.0-291.0) ng/mL Total Protein 6.0 L (6.3-8.2) g/dL Assessment and Plan Plan: Assessment: 1. End-stage renal disease maintained on hemodialysis Wednesday. 2. Acute hypoxic respiratory failure. 3. Volume overload. Improving with ultrafiltration. 4. Acute on chronic diastolic CHF. 5. Diabetes mellitus. 6. Hypertensive urgency. Improved. 7. Anemia of chronic kidney disease maintained on Aranesp. Status post blood transfusion this admission. Denies any active bleeding. 8. Chronic kidney disease mineral bone disease maintained on Renvela. Phosphorus level 4.7 dated March 16, 2024. Plan: Hemodialysis today and again tomorrow. Wean FiO2. Maintain low-salt diet. Add 1500 cc fluid restriction.
[2024-03-17 11:48] LABS: Glucose,Whole Blood 155 mg/dL (70-110)
--- NOTE | 2024-03-17 13:25 | P.PN ---
Subjective Progress Note Date: 03/17/24 Principal diagnosis: Anemia This is a pleasant 34-year-old female who presented to the emergency department 2 days ago from a [facility] for shortness of breath and increased need for oxygen and requiring BiPAP. She has a past medical history for type I diabetes mellitus, hypertension, end-stage renal disease on dialysis, chronic anemia, seizure disorder, and thyroid disorder. She undergoes hemodialysis Tuesdays, and Saturdays. She was admitted for pulmonary edema, fluid overload and complaints chest pain. Patient has a history of chronic anemia she was admitted with a hemoglobin of 9.0 with a drop to 6.9 yesterday and was transfused 1 unit of blood. Gastroent erology was consulted for anemia. Trending patient's labs that she has had longstanding history of anemia likely secondary to chronic disease. She did have a workup during her last admission and underwent upper endoscopy with Dr. Hawthorne on 02/10/2024 with findings of mild antral gastritis and gastroparesis. She denies any abdominal pain, nausea or vomiting. Denies any blood in her stool or black stool. She is not on any anticoagulation and denies any NSAID use. Patient is currently on BiPAP during this examination she is scheduled to undergo hemodialysis today. She continues to report shortness of breath. 03/17/2024 Patient is seen and examined today as a follow-up. She currently has oxygen supplement mentation by nasal cannula. States that she is still short of breath and not feeling well. She denies any abdominal pain, nausea or vomiting. No blood in her stool or black stool noted. Patient underwent dialysis yesterday. Today's repeat hemoglobin 8.2 Objective - Vital Signs Vital signs: Vital Signs Temp 99.2 F 03/17/24 04:00 Pulse 101 H 03/17/24 04:00 Resp 20 03/17/24 04:00 BP 149/80 03/17/24 04:00 Pulse Ox 92 L 03/17/24 04:00 FiO2 40 03/16/24 12:03 Intake & Output 03/16/24 03/17/24 03/17/24 18:59 06:59 18:59 Intake Total 1034 980 Output Total 0 4500 Balance 1034 -3520 Weight 77.8 kg Intake: Oral 1034 480 Hemodialysis 500 Output: Urine 0 Hemodialysis 4500 Other: Voiding Method Bedside Commode Bedside Commode - Exam General appearance: The patient is alert, oriented, appears in no acute distress. HET: Head is normocephalic and atraumatic. Conjunctiva pink. Sclera anicteric. Neck: Supple without lymphadenopathy. Abdomen: Soft, nontender, nondistended with bowel sounds. No guarding or rigidity. Extremities: Normal skin color and turgor. No pedal edema Skin: No rashes, no jaundice Neurological: No focal deficits. Alert and oriented. - Labs CBC & Chem 7: 03/17/24 07:54 03/17/24 07:54 Labs: Abnormal Lab Results - Last 24 Hours (Table) 03/16/24 03/16/24 03/16/24 Range/Units 11:23 11:23 11:54 RBC 2.20 L (3.80-5.40) m/uL Hgb 7.4 L (11.4-16.0) gm/dL Hct 21.5 L (34.0-46.0) % Neutrophils # 7.8 H (1.3-7.7) k/uL Lymphocytes # 0.6 L (1.0-4.8) k/uL Eosinophils # 1.4 H (0-0.7) k/uL Sodium 133 L (137-145) mmol/L Chloride 96 L (98-107) mmol/L Carbon Dioxide 32 H (22-30) mmol/L BUN 34 H (7-17) mg/dL Creatinine 3.37 H (0.52-1.04) mg/dL Glucose 46 L* (74-99) mg/dL POC Glucose (mg/dL) 64 L (70-110) mg/dL Calcium 8.3 L (8.4-10.2) mg/dL Phosphorus 4.7 H (2.5-4.5) mg/dL Iron 27 L (50-170) UG/DL % Saturation 11.34 L (12.00-45.00) Transferrin 170.0 L (204.0-354.0) mg/dL Ferritin 340.0 H (10.0-291.0) ng/mL 03/16/24 03/16/24 03/16/24 Range/Units 12:31 16:21 19:51 RBC (3.80-5.40) m/uL Hgb (11.4-16.0) gm/dL Hct (34.0-46.0) % Neutrophils # (1.3-7.7) k/uL Lymphocytes # (1.0-4.8) k/uL Eosinophils # (0-0.7) k/uL Sodium (137-145) mmol/L Chloride (98-107) mmol/L Carbon Dioxide (22-30) mmol/L BUN (7-17) mg/dL Creatinine (0.52-1.04) mg/dL Glucose (74-99) mg/dL POC Glucose (mg/dL) 64 L 234 H 355 H (70-110) mg/dL Calcium (8.4-10.2) mg/dL Phosphorus (2.5-4.5) mg/dL Iron (50-170) UG/DL % Saturation (12.00-45.00) Transferrin (204.0-354.0) mg/dL Ferritin (10.0-291.0) ng/mL 03/17/24 03/17/24 Range/Units 02:37 06:26 RBC (3.80-5.40) m/uL Hgb (11.4-16.0) gm/dL Hct (34.0-46.0) % Neutrophils # (1.3-7.7) k/uL Lymphocytes # (1.0-4.8) k/uL Eosinophils # (0-0.7) k/uL Sodium (137-145) mmol/L Chloride (98-107) mmol/L Carbon Dioxide (22-30) mmol/L BUN (7-17) mg/dL Creatinine (0.52-1.04) mg/dL Glucose (74-99) mg/dL POC Glucose (mg/dL) 283 H 315 H (70-110) mg/dL Calcium (8.4-10.2) mg/dL Phosphorus (2.5-4.5) mg/dL Iron (50-170) UG/DL % Saturation (12.00-45.00) Transferrin (204.0-354.0) mg/dL Ferritin (10.0-291.0) ng/mL Assessment and Plan (1) Normocytic normochromic anemia Narrative/Plan: 34-year-old female presenting with shortness of breath noted to be hypoxic with multiple comorbidities including type 1 diabetes mellitus, end-stage renal disease on hemodialysis, seizure disorder, thyroid disorder and anemia of chronic disease and maintain on Aranesp currently admitted for pulmonary edema and fluid overload. Again has a history of chronic anemia she came in with a hemoglobin of 9.0 with a drop to 6.9 however patient denies any blood in her stool, black stool, nausea vomiting or hematemesis. She just underwent recent upper endoscopy with Dr. Bella for anemia on 02/10/2024 with findings of mild gastritis, and retained food in the stomach consistent with gastroparesis. Normocytic normochromic anemia which is often seen with her history of anemia of chronic disease. With recent endoscopy and no complaints of bleeding as well as patient's poor respiratory status no plans on endoscopic evaluation. Iron studies ordered. Transfuse as needed. Continue with recommendations from nephrology. Current Visit: Yes Status: Acute Code(s): D64.9 - ANEMIA, UNSPECIFIED SNOMED Code(s): 07848471 (2) Acute respiratory failure Current Visit: Yes Status: Acute Code(s): J96.00 - ACUTE RESPIRATORY FAILURE, UNSP W HYPOXIA OR HYPERCAPNIA SNOMED Code(s): 18412656 (3) ESRD (end stage renal disease) Current Visit: Yes Status: Acute Code(s): N18.6 - END STAGE RENAL DISEASE SNOMED Code(s): 55748025 (4) Acute pulmonary edema Current Visit: No Status: Acute Code(s): J81.0 - ACUTE PULMONARY EDEMA SNOMED Code(s): 55216603 (5) Gastroparesis Current Visit: Yes Status: Acute Code(s): K31.84 - GASTROPARESIS SNOMED Code(s): 475168792 Plan: 1. Continue symptomatic and supportive care 2. Daily CBC, transfuse for hemoglobin less than 7 3. Iron studies ordered 4. Continue with recommendations from nephrology, patient maintained on Aranesp 5. No plans on endoscopic evaluation. Patient had recent upper endoscopy on 02/10/2024 with no evidence of GI bleed. Mild gastritis and gastroparesis noted 6. Medical management per primary medical team Thank you for this consultation, we will sign off at this time. Dr. Jermain Castillo I agree with the dictator's note, documented as a scribe by Caitlyn Gipson.
--- NOTE | 2024-03-17 13:36 | P.PN ---
Subjective HISTORY OF PRESENT ILLNESS: This is a 34-year-old female with a past medical history significant for type 1 diabetes, hypertension, chronic kidney disease on hemodialysis, depression, anxiety, and hyperlipidemia. Patient follows in the office with Dr. Avila. We have been asked to see the patient in consultation for CHF. Patient examined at the bedside in the emergency room. Patient presented to the hospital with a chief complaint of shortness of breath. Patient also reports having chest pain and feels like an elephant is sitting on her chest. She states she has been attending dialysis regularly with no missed sessions. She states that her most recent session she had 4 L of fluid removed. She states at home she has been gaining approximately 3 to 4 pounds a day for the past few days. Patient's blood pressure was elevated upon admission to the hospital with a reading of 175/98. She was also tachycardic with heart rate around 120. DIAGNOSTICS: - EKG reveals sinus tachycardia with no signs of acute ischemia. - Chest xray interval worsening edema. Tiny right effusion suspected. Stable cardiomegaly.. - Laboratory data: WBC 12.6. Hemoglobin 9.0. Platelet count 253. Sodium 139. Potassium 4.8. BUN 37. Creatinine 4.04. Lactic acid 1.0. Magnesium 1.8. Troponin negative x 1. proBNP 22,200. - Current home cardiac medication list has not been updated at the time of examination - Most recent echocardiogram obtained in December 2023 revealed ejection fraction 55 to 60%, mild MR, mild TR, and a small pericardial effusion with no tamponade physiology -Limited echo obtained on 02/06/2024 revealed ejection fraction 55 to 60% with small pericardial effusion with no tamponade physiology. -Patient underwent HAYDER on 12/27/2023 secondary to bacteremia revealing aortic valve is tricuspid with normal function, mitral valve appears to be normal with mild MR, tricuspid valve is normal with no vegetation, the intra-atrial septum is intact. No evidence of PFO. Left atrial appendage is free of clot. Left ventricular ejection fraction 55%, no vegetation noted. Dialysis catheter noted in the right atrium with no vegetation noted on catheter. 03/15/2024 Patient examined this morning the bedside. Patient is currently undergoing hemodialysis. Patient states she has been sleeping a lot since being admitted to the hospital. She reports back pain when she is coughing. She also reports chest pain with deep inspiration. Vital signs are stable. Blood pressure is much better controlled today. Blood pressure this morning 157/88. 03/16/2024 Patient examined this morning at the bedside. Patient continues to report shortness of breath. She is currently on BiPAP at the time of examination. Patient states she is scheduled to undergo hemodialysis again today. 02/16/2024 Patient examined this morning at the bedside. Patient states that she did not sleep well overnight and is feeling unwell this morning. She reports nausea. She also reports a cough with sputum production. WBC today 14.2. Creatinine 3.38. Patient's blood pressures have remained stable. PHYSICAL EXAM: VITAL SIGNS: Reviewed. GENERAL: Well-developed in no acute distress. HEENT: Head is normocephalic. Pupils are equal, round. Sclerae anicteric. Mucous membranes of the mouth are moist. Neck supple. No JVD or thyromegaly LUNGS: Respirations even and unlabored. Lungs essentially clear to auscultation bilaterally. HEART: Regular rate and rhythm. S1 and S2 heard. + systolic murmur. S4 noted. ABDOMEN: Soft. Nondistended. Nontender. EXTREMITIES: Normal range of motion. No clubbing or cyanosis. Peripheral pulses intact. Bilateral lower extremity edema noted. NEUROLOGIC: Awake and alert. Oriented x 3. ASSESSMENT: Shortness of breath Acute hypoxic respiratory failure requiring BiPAP Acute on chronic heart failure with preserved ejection fraction likely more related to CKD/volume overload Hypertensive urgency End-stage renal disease on hemodialysis, Wednesday Leukocytosis Anemia of chronic disease History of hypertension History of hyperlipidemia Type 1 diabetes History of CVA, 2023 History of seizure Hypothyroidism Chronic pain syndrome PLAN: No need to repeat echocardiogram as this was performed last month Continue current cardiac medications Hemodialysis per nephrology Continue to monitor blood pressure Patient currently stable from a cardiac perspective We will sign off. Please reconsult if needed. Nurse practitioner note has been reviewed by physician. Signing provider agrees with the documented findings, assessment, and plan of care documented by MID WIFE as a scribe. Objective - Vital Signs Vital signs: Vital Signs Temp 99.2 F 03/17/24 04:00 Pulse 82 03/17/24 12:00 Resp 16 03/17/24 12:00 BP 102/58 03/17/24 12:00 Pulse Ox 93 L 03/17/24 12:00 FiO2 40 03/16/24 12:03 Intake & Output 03/16/24 03/17/24 03/17/24 18:59 06:59 18:59 Intake Total 1034 980 590 Output Total 0 4500 Balance 1034 -3520 590 Weight 77.8 kg Intake: Oral 1034 480 590 Hemodialysis 500 Output: Urine 0 Hemodialysis 4500 Other: Voiding Method Bedside Commode Bedside Commode Bedside Commode - Labs CBC & Chem 7: 03/17/24 07:54 03/17/24 07:54 Labs: Abnormal Lab Results - Last 24 Hours (Table) 03/16/24 03/16/24 03/16/24 Range/Units 11:23 16:21 19:51 WBC (3.8-10.6) k/uL RBC (3.80-5.40) m/uL Hgb (11.4-16.0) gm/dL Hct (34.0-46.0) % Neutrophils # (1.3-7.7) k/uL Lymphocytes # (1.0-4.8) k/uL Eosinophils # (0-0.7) k/uL Sodium (137-145) mmol/L Chloride (98-107) mmol/L BUN (7-17) mg/dL Creatinine (0.52-1.04) mg/dL Glucose (74-99) mg/dL POC Glucose (mg/dL) 234 H 355 H (70-110) mg/dL Iron 27 L (50-170) UG/DL % Saturation 11.34 L (12.00-45.00) Transferrin 170.0 L (204.0-354.0) mg/dL Ferritin 340.0 H (10.0-291.0) ng/mL Total Protein (6.3-8.2) g/dL 03/17/24 03/17/24 03/17/24 Range/Units 02:37 06:26 07:54 WBC 14.2 H (3.8-10.6) k/uL RBC 2.57 L (3.80-5.40) m/uL Hgb 8.2 L (11.4-16.0) gm/dL Hct 25.7 L (34.0-46.0) % Neutrophils # 11.4 H (1.3-7.7) k/uL Lymphocytes # 0.8 L (1.0-4.8) k/uL Eosinophils # 0.9 H (0-0.7) k/uL Sodium (137-145) mmol/L Chloride (98-107) mmol/L BUN (7-17) mg/dL Creatinine (0.52-1.04) mg/dL Glucose (74-99) mg/dL POC Glucose (mg/dL) 283 H 315 H (70-110) mg/dL Iron (50-170) UG/DL % Saturation (12.00-45.00) Transferrin (204.0-354.0) mg/dL Ferritin (10.0-291.0) ng/mL Total Protein (6.3-8.2) g/dL 03/17/24 03/17/24 Range/Units 07:54 11:46 WBC (3.8-10.6) k/uL RBC (3.80-5.40) m/uL Hgb (11.4-16.0) gm/dL Hct (34.0-46.0) % Neutrophils # (1.3-7.7) k/uL Lymphocytes # (1.0-4.8) k/uL Eosinophils # (0-0.7) k/uL Sodium 130 L (137-145) mmol/L Chloride 91 L (98-107) mmol/L BUN 26 H (7-17) mg/dL Creatinine 3.38 H (0.52-1.04) mg/dL Glucose 225 H (74-99) mg/dL POC Glucose (mg/dL) 155 H (70-110) mg/dL Iron (50-170) UG/DL % Saturation (12.00-45.00) Transferrin (204.0-354.0) mg/dL Ferritin (10.0-291.0) ng/mL Total Protein 6.0 L (6.3-8.2) g/dL
--- NOTE | 2024-03-17 15:12 | XR ---
EXAMINATION TYPE: XR chest 1V portable DATE OF EXAM: 03/17/2024 3:00 PM CLINICAL INDICATION:Female, 34 years old with history of shortness of breath; [facility] COMPARISON: Chest radiographs from 03/14/2024 TECHNIQUE: XR chest 1V portable Frontal view of the chest. FINDINGS: Lungs/Pleura: There is no evidence of pleural effusion, focal consolidation, or pneumothorax. Pulmonary vascularity: Pulmonary vascular congestion. Heart/mediastinum: Cardiomediastinal silhouette is enlarged and stable. Musculoskeletal: No acute osseous pathology. Other findings: None Right central venous catheter with tip in appropriate position. IMPRESSION: Similar Volume overload with pulmonary vascular congestion.
--- NOTE | 2024-03-17 16:00 | P.PN ---
Subjective Progress Note Date: 03/17/24 34-year-old female came in with complaints of shortness of breath and patient is presently on BiPAP.. Patient has history of end-stage renal disease on hemodialysis did not miss any hemodialysis as per the patient patient is found to have severe pulmonary edema and and patient is undergoing hemodialysis with removal of the 3.5 L of fluid. Patient blood pressure is high. Patient had normal ejection fraction does not have any history of heart failure patient does not urinate much. Patient is complaining of pain in the chest because of which cardiology evaluated the patient, EKG did not show any acute ST-T wave changes. 1 set of troponin is within normal limits patient's proBNP is elevated to 22,200. Patient has not had any fever chills patient does have leukocytosis 12,600 03/15/2024 Patient is evaluated today resting in bed during hemodialysis. She continues to report significant nausea as well as her chronic back pain. Patient is requesting additional nausea medication. Patient was started on a heart healthy diet which was not started until this morning unfortunately she did not get any dinner and was given a dose of Levemir 40 units at at bedtime due to increased blood glucose and blood sugar was down until 33 today because she is currently up to 74. Would recommend to hold the evening dose of Levemir for blood glucose remains below 100. Levemir was also decreased back to her usual dose of 25 units at bedtime. Patient continues on 3 L of oxygen. Patient is a /Wed/Wednesday hemodialysis patient although has been getting hemodialysis 4 to 5 times weekly on an outpatient basis and has not been complaint with fluid restrictions. 03/16/2024 Patient is seen and evaluated in follow-up today with multiple medical consultations following. Patient receiving hemodialysis today. Patient continues to report significant shortness of breath and had been requesting Bi PAP. Patient chronically wears oxygen in the outpatient setting. Patient's blood sugars have been on the lower side and will adjust long-acting send continue with sliding scales and Accu-Cheks before meals and at bedtime and at 2 AM. No active bleeding noted and patient's hemoglobin is stable at 7.4. GI was consulted for anemia and ordered iron studies with no plans of surgical endoscopic intervention at this time. Patient recently had endoscopy with general surgery last admission. Patient is afebrile reporting continued weakness and awaiting PT/OT therapy. Patient currently resides at [facility] and plans on returning there. Will follow-up with consultations regarding discharge planning in the next 24 to 48 hours 03/17/2024 Patient is seen in follow-up today with multiple medical consultations following including cardiology and nephrology. Patient is being dialyzed today and will need additional dialyzing tomorrow with continued volume overload. Patient having some cough with congestion and some faint wheezing on expiration noted. Patient notes the sputum is greenish and will initiate empiric Zithromax along with DuoNeb treatments scheduled and as needed and will obtain a chest x-ray. Patient to be evaluated by physical therapy with plans on returning to [facility] once stabilized and discharged. Patient is currently afebrile reports continued back pain with no relief in pain medications. White count today is 14.2, hemoglobin is 8.2, platelets 256, sodium is 130 with a potassium of 4.3, BUN is 26 and creatinine is currently 3.38. Blood sugars being monitored and had been elevated with adjustments to medications being made. Patient reports she takes 15 units of long-acting during the day and 12 units at night when she does not have her pump. Patient was on a relatively high dose and had been having low blood sugars all day yesterday. Sugars are slightly elevated today and will adjust insulins accordingly. Continue monitoring Accu-Cheks before meals and at bedtime as well as 2 AM as patient has significantly uncontrolled diabetes. Review of Systems Constitutional: Denied any fatigue denied any fever. Cardio vascular: denied any chest pain, palpitations Gastrointestinal: Reports nausea, no reports of vomiting, no diarrhea Pulmonary: Reports continued shortness of breath and a cough with phlegm Neurologic denied any new focal deficits, diffusely weak All inpatient medications were reviewed and appropriate changes in these medications as dictated in the interval history and assessment and plan. PHYSICAL EXAMINATION: GENERAL: The patient is awake, alert and oriented x3. Well developed, well nourished. Appears older than stated age, currently maintained on 4 L via nasal cannula HEENT: Pupils are round and equally reacting to light. EOMI. No scleral icterus. No conjunctival pallor. Normocephalic, atraumatic. No pharyngeal erythema. No thyromegaly. CARDIOVASCULAR: S1 and S2 present. No murmurs, rubs, or gallops. PULMONARY: Diminished breath sounds bilaterally with some upper bronchial congestion noted with cough on exam and some faint lower expiratory wheezing at the bases Patient has crackles posteriorly bilaterally ABDOMEN: Soft, nontender, nondistended, normoactive bowel sounds. No palpable organomegaly. MUSCULOSKELETAL: No joint swelling or deformity. EXTREMITIES: No cyanosis, clubbing, or pedal edema. NEUROLOGICAL: Gross neurological examination did not reveal any focal deficits. Diffuse weakness SKIN: No rashes. Assessment: -Acute respiratory failure secondary to pulmonary edema from end-stage renal disease patient is undergoing hemodialysis received IV Lasix in the ER. -Nausea secondary to uremia and end-stage renal disease continues on antiemetics, continue oral Compazine as needed -History of gastroparesis maintained on Reglan on an outpatient basis -Anemia, likely chronic with chronic kidney disease -Leukocytosis, possibly reactive although patient is having some bronchial congestion and phlegm production, will undergo further possible infectious workup. -Chest pressure which appears more musculoskeletal in nature, pain is reproducible with palpation. Patient states this is from coughing. -Hypertension uncontrolled elevated , improved with hemodialysis -Gastroesophageal reflux disease -End-stage renal disease -Seizure disorder -Hypothyroidism -Chronic pain patient continues on oral [place] as well as baclofen, methocarbamol while as needed -Depression DVT prophylaxis: Subcutaneous heparin GI prophylaxis Full Code Plan: PT/OT consulted and following as patient will be returning to [facility] on discharge once cleared by consultations, continue with hemodialysis per nephrology. Patient is to receive hemodialysis today as well as tomorrow per nephrology. Patient was evaluated by GI. No plans for endoscopic intervention at this time. Patient had endoscopy on admission in January, showing antral gastritis and gastroparesis. Hemoglobin is stable at 8.2 today no active bleeding noted Case management following and plan is to return to [facility] once stabilized and cleared by consultations. Awaiting PT/OT therapy Blood sugars have been uncontrolled and abnormal including hypoglycemia as well as hyperglycemia and will adjust insulins accordingly. Continue monitoring Accu-Cheks before meals and at bedtime as well as 2 AM. Patient reports she normally has an insulin pump and when she does not she uses 15 units of long- acting during the day and 12 units at night. Will adjust insulins accordingly and continue to monitor closely Patient having some cough and upper bronchial congestion with some faint wheezing and crackles noted. Chest x-ray obtained showing similar volume overload with pulmonary vascular congestion. Will obtain sputum sample if possible, start empiric Zithromax, obtain a procalcitonin, Cepheid, and start Mucinex. Encouraged incentive spirometer use The impression and plan of care has been dictated by Margie Urbina, Nurse Practitioner as directed. Dr. Connie MD I have performed a history and physical examination and medical decision making of this patient, discussed the same with the dictator, and agree with the dictators assessment and plan as written, documented as a scribe. Based on total visit time, I have performed more than 50% of this visit. Objective - Vital Signs Vital signs: Vital Signs Temp 99.2 F 03/17/24 04:00 Pulse 101 H 03/17/24 04:00 Resp 20 03/17/24 04:00 BP 149/80 03/17/24 04:00 Pulse Ox 92 L 03/17/24 04:00 FiO2 40 03/16/24 12:03 Intake & Output 03/16/24 03/17/24 03/17/24 18:59 06:59 18:59 Intake Total 1034 980 Output Total 0 4500 Balance 1034 -3520 Weight 77.8 kg Intake: Oral 1034 480 Hemodialysis 500 Output: Urine 0 Hemodialysis 4500 Other: Voiding Method Bedside Commode Bedside Commode - Labs CBC & Chem 7: 03/17/24 07:54 03/17/24 07:54 Labs: Abnormal Lab Results - Last 24 Hours (Table) 03/16/24 03/16/24 03/16/24 Range/Units 11:23 11:23 11:54 RBC 2.20 L (3.80-5.40) m/uL Hgb 7.4 L (11.4-16.0) gm/dL Hct 21.5 L (34.0-46.0) % Neutrophils # 7.8 H (1.3-7.7) k/uL Lymphocytes # 0.6 L (1.0-4.8) k/uL Eosinophils # 1.4 H (0-0.7) k/uL Sodium 133 L (137-145) mmol/L Chloride 96 L (98-107) mmol/L Carbon Dioxide 32 H (22-30) mmol/L BUN 34 H (7-17) mg/dL Creatinine 3.37 H (0.52-1.04) mg/dL Glucose 46 L* (74-99) mg/dL POC Glucose (mg/dL) 64 L (70-110) mg/dL Calcium 8.3 L (8.4-10.2) mg/dL Phosphorus 4.7 H (2.5-4.5) mg/dL Iron 27 L (50-170) UG/DL % Saturation 11.34 L (12.00-45.00) Transferrin 170.0 L (204.0-354.0) mg/dL Ferritin 340.0 H (10.0-291.0) ng/mL 03/16/24 03/16/24 03/16/24 Range/Units 12:31 16:21 19:51 RBC (3.80-5.40) m/uL Hgb (11.4-16.0) gm/dL Hct (34.0-46.0) % Neutrophils # (1.3-7.7) k/uL Lymphocytes # (1.0-4.8) k/uL Eosinophils # (0-0.7) k/uL Sodium (137-145) mmol/L Chloride (98-107) mmol/L Carbon Dioxide (22-30) mmol/L BUN (7-17) mg/dL Creatinine (0.52-1.04) mg/dL Glucose (74-99) mg/dL POC Glucose (mg/dL) 64 L 234 H 355 H (70-110) mg/dL Calcium (8.4-10.2) mg/dL Phosphorus (2.5-4.5) mg/dL Iron (50-170) UG/DL % Saturation (12.00-45.00) Transferrin (204.0-354.0) mg/dL Ferritin (10.0-291.0) ng/mL 03/17/24 03/17/24 Range/Units 02:37 06:26 RBC (3.80-5.40) m/uL Hgb (11.4-16.0) gm/dL Hct (34.0-46.0) % Neutrophils # (1.3-7.7) k/uL Lymphocytes # (1.0-4.8) k/uL Eosinophils # (0-0.7) k/uL Sodium (137-145) mmol/L Chloride (98-107) mmol/L Carbon Dioxide (22-30) mmol/L BUN (7-17) mg/dL Creatinine (0.52-1.04) mg/dL Glucose (74-99) mg/dL POC Glucose (mg/dL) 283 H 315 H (70-110) mg/dL Calcium (8.4-10.2) mg/dL Phosphorus (2.5-4.5) mg/dL Iron (50-170) UG/DL % Saturation (12.00-45.00) Transferrin (204.0-354.0) mg/dL Ferritin (10.0-291.0) ng/mL
[2024-03-17 16:16] LABS: Glucose,Whole Blood 94 mg/dL (70-110)
[2024-03-17] MEDS: guaiFENesin 600 MG TABLET.ER PO SCH (17:13)
[2024-03-17] MEDS: AZITHROMYCIN 500 MG in SODIUM CHLORIDE 0.9% 250 ML IVPB SCH (17:15)
[2024-03-17 20:01] LABS: Glucose,Whole Blood 102 mg/dL (70-110)
[2024-03-17] MEDS: IPRATROPIUM-ALBUTEROL 3 ML NEB INHALATION SCH (21:02)
[2024-03-18 01:39] LABS: Glucose,Whole Blood 34 mg/dL (70-110)
[2024-03-18 02:11] LABS: Glucose,Whole Blood 60 mg/dL (70-110)
[2024-03-18 02:33] LABS: Glucose,Whole Blood 85 mg/dL (70-110)
[2024-03-18 06:09] LABS: Glucose,Whole Blood 80 mg/dL (70-110)
[2024-03-18 09:41] LABS: Basophils # (A) 0.1 k/uL (0-0.2); Basophils % (A) 1 %; Eosinophils # (A) 1.6 k/uL (0-0.7); Eosinophils % (A) 17 %; HCT 23.4 % (34.0-46.0); HGB 7.5 gm/dL (11.4-16.0); Lymphocytes # (A) 1.3 k/uL (1.0-4.8); Lymphocytes % (A) 14 %; MCH 31.6 pg (25.0-35.0); MCV 98.5 fL (80.0-100.0); Mean Platelet Volume 9.1; Monocytes # (A) 0.6 k/uL (0-1.0); Monocytes % (A) 6 %; Neutrophils # (A) 5.5 k/uL (1.3-7.7); Neutrophils % (A) 60 %; Platelet Count 247 k/uL (150-450); RBC 2.37 m/uL (3.80-5.40); RDW 14.8 % (11.5-15.5); WBC 9.2 k/uL (3.8-10.6)
[2024-03-18 09:57] LABS: African American GFR (CKD) 19 (>60 ml/min/1.73 sqM); Anion Gap 10 mmol/L; Blood Urea Nitrogen 26 mg/dL (7-17); Calcium 8.5 mg/dL (8.4-10.2); Carbon Dioxide 28 mmol/L (22-30); Chloride 94 mmol/L (98-107); Glucose 69 mg/dL (74-99); Non-African American GFR(CKD) 16 (>60 ml/min/1.73 sqM); Potassium 4.2 mmol/L (3.5-5.1); Sodium 132 mmol/L (137-145)
--- NOTE | 2024-03-18 10:10 | P.PN ---
Subjective Patient is seen in follow-up for end-stage renal disease. She is maintained on hemodialysis 4 days a week. Tolerating dialysis well. On nasal cannula. Vital signs are stable. General: Resting in bed. HEENT: On nasal cannula. LUNGS: No audible rhonchi or wheezes. HEART: Rate and Rhythm are regular. ABDOMEN: Nontender. EXTREMITITES: Trace edema. Objective - Vital Signs Vital signs: Vital Signs Temp 98.0 F 03/18/24 08:23 Pulse 81 03/18/24 08:23 Resp 18 03/18/24 08:23 BP 121/69 03/18/24 08:23 Pulse Ox 98 03/18/24 08:23 FiO2 40 03/16/24 12:03 Intake & Output 03/17/24 03/18/24 03/18/24 18:59 06:59 18:59 Intake Total 990 540 250 Output Total 1999 Balance -1010 540 250 Weight 77.8 kg Intake: IV 10 Invasive Line 1 10 Oral 590 540 240 Hemodialysis 400 Output: Hemodialysis 2000 Other: Voiding Method Bedside Commode Bedside Commode # Voids 1 # Bowel Movements 1 - Labs CBC & Chem 7: 03/18/24 09:26 03/18/24 09:26 Labs: Abnormal Lab Results - Last 24 Hours (Table) 03/17/24 03/17/24 03/18/24 Range/Units 07:54 11:46 01:37 RBC (3.80-5.40) m/uL Hgb (11.4-16.0) gm/dL Hct (34.0-46.0) % Eosinophils # (0-0.7) k/uL Sodium (137-145) mmol/L Chloride (98-107) mmol/L BUN (7-17) mg/dL Creatinine (0.52-1.04) mg/dL Glucose (74-99) mg/dL POC Glucose (mg/dL) 155 H 34 L (70-110) mg/dL Procalcitonin 15.10 H (0.02-0.09) ng/mL 03/18/24 03/18/24 03/18/24 Range/Units 02:09 09:26 09:26 RBC 2.37 L (3.80-5.40) m/uL Hgb 7.5 L (11.4-16.0) gm/dL Hct 23.4 L (34.0-46.0) % Eosinophils # 1.6 H (0-0.7) k/uL Sodium 132 L (137-145) mmol/L Chloride 94 L (98-107) mmol/L BUN 26 H (7-17) mg/dL Creatinine 3.54 H (0.52-1.04) mg/dL Glucose 69 L (74-99) mg/dL POC Glucose (mg/dL) 60 L (70-110) mg/dL Procalcitonin (0.02-0.09) ng/mL Assessment and Plan Plan: Assessment: 1. End-stage renal disease maintained on hemodialysis Wednesday. 2. Acute hypoxic respiratory failure. 3. Volume overload. Improving with ultrafiltration. 4. Acute on chronic diastolic CHF. 5. Diabetes mellitus. 6. Hypertensive urgency. Improved. 7. Anemia of chronic kidney disease maintained on Aranesp. Status post blood transfusion this admission. Denies any active bleeding. 8. Chronic kidney disease mineral bone disease maintained on Renvela. Phosphorus level 4.7 dated March 16, 2024. Plan: Currently seen while undergoing hemodialysis. Next treatment on Wednesday. Maintain low-salt diet. Add 1500 cc fluid restriction. Add IV iron.
[2024-03-18 11:39] LABS: Glucose,Whole Blood 62 mg/dL (70-110)
[2024-03-18] MEDS: SODIUM FERRIC GLUCONAT-SUCROSE 125 MG in SODIUM CHLORIDE 0.9% 100 ML IVPB SCH (11:53)
[2024-03-18 11:59] LABS: Glucose,Whole Blood 63 mg/dL (70-110)
[2024-03-18 12:18] LABS: Glucose,Whole Blood 70 mg/dL (70-110)
[2024-03-18 12:39] LABS: Glucose,Whole Blood 102 mg/dL (70-110)
[2024-03-18 16:15] LABS: Glucose,Whole Blood 286 mg/dL (70-110)
--- NOTE | 2024-03-18 18:14 | P.PN ---
Subjective Progress Note Date: 03/18/24 34-year-old female came in with complaints of shortness of breath and patient is presently on BiPAP.. Patient has history of end-stage renal disease on hemodialysis did not miss any hemodialysis as per the patient patient is found to have severe pulmonary edema and and patient is undergoing hemodialysis with removal of the 3.5 L of fluid. Patient blood pressure is high. Patient had normal ejection fraction does not have any history of heart failure patient does not urinate much. Patient is complaining of pain in the chest because of which cardiology evaluated the patient, EKG did not show any acute ST-T wave changes. 1 set of troponin is within normal limits patient's proBNP is elevated to 22, 200. Patient has not had any fever chills patient does have leukocytosis 12,600 03/15/2024 Patient is evaluated today resting in bed during hemodialysis. She continues to report significant nausea as well as her chronic back pain. Patient is requesting additional nausea medication. Patient was started on a heart healthy diet which was not started until this morning unfortunately she did not get any dinner and was given a dose of Levemir 40 units at at bedtime due to increased blood glucose and blood sugar was down until 33 today because she is currently up to 74. Would recommend to hold the evening dose of Levemir for blood glucose remains below 100. Levemir was also decreased back to her usual dose of 25 units at bedtime. Patient continues on 3 L of oxygen. Patient is a // Wednesday hemodialysis patient although has been getting hemodialysis 4 to 5 times weekly on an outpatient basis and has not been complaint with fluid restrictions. 03/16/2024 Patient is seen and evaluated in follow-up today with multiple medical consultations following. Patient receiving hemodialysis today. Patient continues to report significant shortness of breath and had been requesting BiPAP. Patient chronically wears oxygen in the outpatient setting. Patient's blood sugars have been on the lower side and will adjust long-acting send continue with sliding scales and Accu-Cheks before meals and at bedtime and at 2 AM. No active bleeding noted and patient's hemoglobin is stable at 7.4. GI was consulted for anemia and ordered iron studies with no plans of surgical endoscopic intervention at this time. Patient recently had endoscopy with general surgery last admission. Patient is afebrile reporting continued weakness and awaiting PT/OT therapy. Patient currently resides at [facility] and plans on returning there. Will follow-up with consultations regarding discharge planning in the next 24 to 48 hours 03/17/2024 Patient is seen in follow-up today with multiple medical consultations following including cardiology and nephrology. Patient is being dialyzed today and will need additional dialyzing tomorrow with continued volume overload. Patient having some cough with congestion and some faint wheezing on expiration noted. Patient notes the sputum is greenish and will initiate empiric Zithromax along with DuoNeb treatments scheduled and as needed and will obtain a chest x-ray. Patient to be evaluated by physical therapy with plans on returning to [facility] once stabilized and discharged. Patient is currently afebrile reports continued back pain with no relief in pain medications. White count today is 14.2, hemoglobin is 8.2, platelets 256, sodium is 130 with a potassium of 4.3, BUN is 26 and creatinine is currently 3.38. Blood sugars being monitored and had been elevated with adjustments to medications being made. Patient reports she takes 15 units of long-acting during the day and 12 units at night when she does not have her pump. Patient was on a relatively high dose and had been having low blood sugars all day yesterday. Sugars are slightly elevated today and will adjust insulins accordingly. Continue monitoring Accu-Cheks before meals and at bedtime as well as 2 AM as patient has significantly uncontrolled diabetes. 03/18/2024 Patient is evaluated today in stepdown unit patient is undergoing hemodialysis. She states that her nausea has improved and continues on as needed Zofran and Compazine. Patient does continue to report cough with sputum production continues on azithromycin. Her procalcitonin level was significantly elevated. Patient is reporting some chest discomfort secondary to the cough. Blood sugars remain low in the morning down to the 30s again. Patient states that she takes 15 units in the morning and only 13 units in the evening and we will just the Levemir as accordingly and continue to monitor blood glucose Accu-Cheks before meals and at bedtime as well as 2 AM. Sputum culture is currently pending at this time. White blood cell count improved to 9.2 hemoglobin 7.5, sodium level 132, BUN 26, creatinine of 3.54 today. Review of Systems Constitutional: Denied any fatigue denied any fever. Cardio vascular: denied any chest pain, palpitations Gastrointestinal: Reports nausea, no reports of vomiting, no diarrhea Pulmonary: Reports continued shortness of breath and a cough with phlegm Neurologic denied any new focal deficits, diffusely weak All inpatient medications were reviewed and appropriate changes in these medications as dictated in the interval history and assessment and plan. PHYSICAL EXAMINATION: GENERAL: The patient is awake, alert and oriented x3. Well developed, well nourished. Appears older than stated age, currently maintained on 4 L via nasal cannula HEENT: Pupils are round and equally reacting to light. EOMI. No scleral icterus. No conjunctival pallor. Normocephalic, atraumatic. No pharyngeal erythema. No thyromegaly. CARDIOVASCULAR: S1 and S2 present. No murmurs, rubs, or gallops. PULMONARY: Diminished breath sounds bilaterally with some upper bronchial congestion noted with cough on exam and some faint lower expiratory wheezing at the bases Patient has crackles posteriorly bilaterally ABDOMEN: Soft, nontender, nondistended, normoactive bowel sounds. No palpable organomegaly. MUSCULOSKELETAL: No joint swelling or deformity. EXTREMITIES: No cyanosis, clubbing, or pedal edema. NEUROLOGICAL: Gross neurological examination did not reveal any focal deficits. Diffuse weakness SKIN: No rashes. Assessment: -Acute respiratory failure secondary to pulmonary edema from end-stage renal disease patient is undergoing hemodialysis received IV Lasix in the ER. -Nausea secondary to uremia and end-stage renal disease continues on antiemetics, continue oral Compazine as needed -History of gastroparesis maintained on Reglan on an outpatient basis -Anemia, likely chronic with chronic kidney disease -Leukocytosis with elevated procalcitonin level also has developed acute tracheobronchitis patient has been started on IV azithromycin. -Chest pressure which appears more musculoskeletal in nature, pain is reproducible with palpation. Patient states this is from coughing. -Hypertension uncontrolled elevated , improved with hemodialysis -Gastroesophageal reflux disease -End-stage renal disease -Seizure disorder -Hypothyroidism -Chronic pain patient continues on oral [place] as well as baclofen, methocarbamol while as needed -Depression DVT prophylaxis: Subcutaneous heparin GI prophylaxis Full Code Plan: PT/OT consulted and following as patient will be returning to [facility] on discharge once cleared by consultations, continue with hemodialysis per neph rology. Patient is to receive hemodialysis today, with next scheduled treatment on Wednesday per nephrology. Patient is maintained on a Wednesday schedule on an outpatient basis. Patient was evaluated by GI. No plans for endoscopic intervention at this time. Patient had endoscopy on admission in January, showing antral gastritis and gastroparesis. Hemoglobin is stable today no active bleeding noted Case management following and plan is to return to [facility] once stabilized and cleared by consultations. Awaiting PT/OT therapy Blood sugars have been uncontrolled and abnormal including hypoglycemia as well as hyperglycemia and will adjust insulins accordingly. Continue monitoring Accu-Cheks before meals and at bedtime as well as 2 AM. Patient reports she normally has an insulin pump and when she does not she uses 15 units of long- acting during the day and 12 units at night. Will adjust insulins accordingly and continue to monitor closely., Patient having some cough and upper bronchial congestion with some faint wheezing and crackles noted. Chest x-ray obtained showing similar volume overload with pulmonary vascular congestion. Will obtain sputum sample if possible, start empiric Zithromax.procalcitonin level significantly elevated and will continue on antibiotics. And start Mucinex. Encouraged incentive spirometer use The impression and plan of care has been dictated by Yeni Blackburn, Nurse Practitioner as directed. Dr. Connie MD I have performed a history and physical examination and medical decision making of this patient, discussed the same with the dictator, and agree with the dictators assessment and plan as written, documented as a scribe. Based on total visit time, I have performed more than 50% of this visit. Objective - Vital Signs Vital signs: Vital Signs Temp 98.0 F 03/18/24 08:23 Pulse 81 03/18/24 08:23 Resp 18 03/18/24 08:23 BP 121/69 03/18/24 08:23 Pulse Ox 98 03/18/24 08:23 FiO2 40 03/16/24 12:03 Intake & Output 03/17/24 03/18/24 03/18/24 18:59 06:59 18:59 Intake Total 990 540 250 Output Total 1999 Balance -1010 540 250 Weight 77.8 kg Intake: IV 10 Invasive Line 1 10 Oral 590 540 240 Hemodialysis 400 Output: Hemodialysis 1999 Other: Voiding Method Bedside Commode Bedside Commode # Voids 1 # Bowel Movements 1 - Labs CBC & Chem 7: 03/18/24 09:26 03/18/24 09:26 Labs: Abnormal Lab Results - Last 24 Hours (Table) 03/17/24 03/17/24 03/17/24 Range/Units 07:54 07:54 07:54 WBC 14.2 H (3.8-10.6) k/uL RBC 2.57 L (3.80-5.40) m/uL Hgb 8.2 L (11.4-16.0) gm/dL Hct 25.7 L (34.0-46.0) % Neutrophils # 11.4 H (1.3-7.7) k/uL Lymphocytes # 0.8 L (1.0-4.8) k/uL Eosinophils # 0.9 H (0-0.7) k/uL Sodium 130 L (137-145) mmol/L Chloride 91 L (98-107) mmol/L BUN 26 H (7-17) mg/dL Creatinine 3.38 H (0.52-1.04) mg/dL Glucose 225 H (74-99) mg/dL POC Glucose (mg/dL) (70-110) mg/dL Total Protein 6.0 L (6.3-8.2) g/dL Procalcitonin 15.10 H (0.02-0.09) ng/mL 03/17/24 03/18/24 03/18/24 Range/Units 11:46 01:37 02:09 WBC (3.8-10.6) k/uL RBC (3.80-5.40) m/uL Hgb (11.4-16.0) gm/dL Hct (34.0-46.0) % Neutrophils # (1.3-7.7) k/uL Lymphocytes # (1.0-4.8) k/uL Eosinophils # (0-0.7) k/uL Sodium (137-145) mmol/L Chloride (98-107) mmol/L BUN (7-17) mg/dL Creatinine (0.52-1.04) mg/dL Glucose (74-99) mg/dL POC Glucose (mg/dL) 155 H 34 L 60 L (70-110) mg/dL Total Protein (6.3-8.2) g/dL Procalcitonin (0.02-0.09) ng/mL Assessment and Plan Time with Patient: Less than 30
[2024-03-18 19:46] LABS: Glucose,Whole Blood 424 mg/dL (70-110)
[2024-03-18] MEDS: INSULIN ASPART (NovoLOG) 100 UNIT/ML VIAL SQ ONE (20:25)
[2024-03-18] MEDS: INSULIN DETEMIR (LEVEMIR) 100 UNIT/ML SYR SQ STA (20:25)
[2024-03-19 01:56] LABS: Glucose,Whole Blood 73 mg/dL (70-110)
[2024-03-19 02:16] LABS: Glucose,Whole Blood 96 mg/dL (70-110)
[2024-03-19 06:01] LABS: Glucose,Whole Blood 100 mg/dL (70-110)
[2024-03-19] MEDS: INSULIN DETEMIR (LEVEMIR) 100 UNIT/ML SYR SQ SCH ×2 (06:10→21:28)
[2024-03-19] MEDS ORDERED: INSULIN DETEMIR (LEVEMIR) 100 UNIT/ML SYR SQ SCH ×2 (07:00→21:00)
[2024-03-19 07:34] LABS: Basophils # (A) 0.1 k/uL (0-0.2); Basophils % (A) 1 %; Eosinophils % (A) 20 %; HCT 24.2 % (34.0-46.0); HGB 8.1 gm/dL (11.4-16.0); Lymphocytes # (A) 1.2 k/uL (1.0-4.8); Lymphocytes % (A) 12 %; MCH 32.5 pg (25.0-35.0); MCHC 33.4 g/dL (31.0-37.0); MCV 97.2 fL (80.0-100.0); Mean Platelet Volume 8.3; Monocytes # (A) 0.7 k/uL (0-1.0); Monocytes % (A) 7 %; Neutrophils # (A) 5.8 k/uL (1.3-7.7); Neutrophils % (A) 59 %; Platelet Count 305 k/uL (150-450); RBC 2.49 m/uL (3.80-5.40); RDW 14.7 % (11.5-15.5); WBC 9.8 k/uL (3.8-10.6)
[2024-03-19 07:58] LABS: African American GFR (CKD) 20 (>60 ml/min/1.73 sqM); Anion Gap 7 mmol/L; Blood Urea Nitrogen 22 mg/dL (7-17); Calcium 8.8 mg/dL (8.4-10.2); Carbon Dioxide 31 mmol/L (22-30); Chloride 98 mmol/L (98-107); Glucose 82 mg/dL (74-99); Magnesium 1.8 mg/dL (1.6-2.3); Non-African American GFR(CKD) 17 (>60 ml/min/1.73 sqM); Potassium 4.4 mmol/L (3.5-5.1); Sodium 136 mmol/L (137-145)
[2024-03-19] MEDS ORDERED: Magnesium Replacement Protocol 1 EACH MISC MISCELLANE PRN (08:55)
--- NOTE | 2024-03-19 10:01 | P.PN ---
Subjective Patient is seen in follow-up for end-stage renal disease. She is maintained on hemodialysis 4 days a week. Tolerated 4 L ultrafiltration yesterday. On nasal cannula. Vital signs are stable. General: Resting in bed. HEENT: On nasal cannula. LUNGS: No audible rhonchi or wheezes. HEART: Rate and Rhythm are regular. ABDOMEN: Nontender. EXTREMITITES: Trace edema. Objective - Vital Signs Vital signs: Vital Signs Temp 97.8 F 03/19/24 08:00 Pulse 88 03/19/24 08:50 Resp 16 03/19/24 08:50 BP 155/84 03/19/24 08:00 Pulse Ox 99 03/19/24 08:38 FiO2 40 03/16/24 12:03 Intake & Output 03/18/24 03/19/24 03/19/24 18:59 06:59 18:59 Intake Total 990 880 462 Output Total 4400 Balance 990 -3520 462 Weight 78.7 kg Intake: IV 20 Invasive Line 1 10 Invasive Line 3 10 Intake, IV Titration 250 Amount Azithromycin 500 mg In 250 Sodium Chloride 0.9% 250 ml @ 250 mls/hr IVPB DAILY [facility] Rx#:[id number] Oral 720 480 462 Hemodialysis 400 Output: Hemodialysis 4400 Other: Voiding Method Bedside Commode Bedside Commode Bedside Commode # Voids 1 # Bowel Movements 1 - Labs CBC & Chem 7: 03/19/24 07:09 03/19/24 07:09 Labs: Abnormal Lab Results - Last 24 Hours (Table) 03/18/24 03/18/24 03/18/24 Range/Units 11:38 11:57 16:13 RBC (3.80-5.40) m/uL Hgb (11.4-16.0) gm/dL Hct (34.0-46.0) % Eosinophils # (0-0.7) k/uL Sodium (137-145) mmol/L Carbon Dioxide (22-30) mmol/L BUN (7-17) mg/dL Creatinine (0.52-1.04) mg/dL POC Glucose (mg/dL) 62 L 63 L 286 H (70-110) mg/dL 03/18/24 03/19/24 03/19/24 Range/Units 19:45 07:09 07:09 RBC 2.49 L (3.80-5.40) m/uL Hgb 8.1 L (11.4-16.0) gm/dL Hct 24.2 L (34.0-46.0) % Eosinophils # 2.0 H (0-0.7) k/uL Sodium 136 L (137-145) mmol/L Carbon Dioxide 31 H (22-30) mmol/L BUN 22 H (7-17) mg/dL Creatinine 3.31 H (0.52-1.04) mg/dL POC Glucose (mg/dL) 424 H (70-110) mg/dL Assessment and Plan Plan: Assessment: 1. End-stage renal disease maintained on hemodialysis Wednesday. 2. Acute hypoxic respiratory failure. Now on nasal cannula. 3. Volume overload. Improving with ultrafiltration. 4. Acute on chronic diastolic CHF. 5. Diabetes mellitus. 6. Hypertensive urgency. Improved. 7. Anemia of chronic kidney disease maintained on Aranesp. Status post blood transfusion this admission. Denies any active bleeding. 8. Chronic kidney disease mineral bone disease maintained on [place]. Phosphorus level 4.7 dated March 16, 2024. Plan: Hemodialysis tomorrow. Maintain low-salt diet. Add 1500 cc fluid restriction. Maintain IV iron.
[2024-03-19 11:28] LABS: Glucose,Whole Blood 102 mg/dL (70-110)
[2024-03-19] MEDS: MAGNESIUM SULFATE-D5W PMX 1 GM in DEXTROSE/WATER 1 100ML.BAG IVPB ONE (11:42)
[2024-03-19 16:28] LABS: Glucose,Whole Blood 172 mg/dL (70-110)
--- NOTE | 2024-03-19 18:57 | P.PN ---
Subjective Progress Note Date: 03/19/24 34-year-old female came in with complaints of shortness of breath and patient is presently on BiPAP.. Patient has history of end-stage renal disease on hemodialysis did not miss any hemodialysis as per the patient patient is found to have severe pulmonary edema and and patient is undergoing hemodialysis with removal of the 3.5 L of fluid. Patient blood pressure is high. Patient had normal ejection fraction does not have any history of heart failure patient does not urinate much. Patient is complaining of pain in the chest because of which cardiology evaluated the patient, EKG did not show any acute ST-T wave changes. 1 set of troponin is within normal limits patient's proBNP is elevated to 22, 200. Patient has not had any fever chills patient does have leukocytosis 12,600 03/15/2024 Patient is evaluated today resting in bed during hemodialysis. She continues to report significant nausea as well as her chronic back pain. Patient is requesting additional nausea medication. Patient was started on a heart healthy diet which was not started until this morning unfortunately she did not get any dinner and was given a dose of Levemir 40 units at at bedtime due to increased blood glucose and blood sugar was down until 33 today because she is currently up to 74. Would recommend to hold the evening dose of Levemir for blood glucose remains below 100. Levemir was also decreased back to her usual dose of 25 units at bedtime. Patient continues on 3 L of oxygen. Patient is a // Wednesday hemodialysis patient although has been getting hemodialysis 4 to 5 times weekly on an outpatient basis and has not been complaint with fluid restrictions. 03/16/2024 Patient is seen and evaluated in follow-up today with multiple medical consultations following. Patient receiving hemodialysis today. Patient continues to report significant shortness of breath and had been requesting BiPAP. Patient chronically wears oxygen in the outpatient setting. Patient's blood sugars have been on the lower side and will adjust long-acting send continue with sliding scales and Accu-Cheks before meals and at bedtime and at 2 AM. No active bleeding noted and patient's hemoglobin is stable at 7.4. GI was consulted for anemia and ordered iron studies with no plans of surgical endoscopic intervention at this time. Patient recently had endoscopy with general surgery last admission. Patient is afebrile reporting continued weakness and awaiting PT/OT therapy. Patient currently resides at [facility] and plans on returning there. Will follow-up with consultations regarding discharge planning in the next 24 to 48 hours 03/17/2024 Patient is seen in follow-up today with multiple medical consultations following including cardiology and nephrology. Patient is being dialyzed today and will need additional dialyzing tomorrow with continued volume overload. Patient having some cough with congestion and some faint wheezing on expiration noted. Patient notes the sputum is greenish and will initiate empiric Zithromax along with DuoNeb treatments scheduled and as needed and will obtain a chest x-ray. Patient to be evaluated by physical therapy with plans on returning to [facility] once stabilized and discharged. Patient is currently afebrile reports continued back pain with no relief in pain medications. White count today is 14.2, hemoglobin is 8.2, platelets 256, sodium is 130 with a potassium of 4.3, BUN is 26 and creatinine is currently 3.38. Blood sugars being monitored and had been elevated with adjustments to medications being made. Patient reports she takes 15 units of long-acting during the day and 12 units at night when she does not have her pump. Patient was on a relatively high dose and had been having low blood sugars all day yesterday. Sugars are slightly elevated today and will adjust insulins accordingly. Continue monitoring Accu-Cheks before meals and at bedtime as well as 2 AM as patient has significantly uncontrolled diabetes. 03/18/2024 Patient is evaluated today in stepdown unit patient is undergoing hemodialysis. She states that her nausea has improved and continues on as needed Zofran and Compazine. Patient does continue to report cough with sputum production continues on azithromycin. Her procalcitonin level was significantly elevated. Patient is reporting some chest discomfort secondary to the cough. Blood sugars remain low in the morning down to the 30s again. Patient states that she takes 15 units in the morning and only 13 units in the evening and we will just the Levemir as accordingly and continue to monitor blood glucose Accu-Cheks before meals and at bedtime as well as 2 AM. Sputum culture is currently pending at this time. White blood cell count improved to 9.2 hemoglobin 7.5, sodium level 132, BUN 26, creatinine of 3.54 today. 03/19/2024 Patient evaluated in follow up. Resting comfortably. Patient underwent h emodialysis yesterday with 4L of ultrafiltration and is scheduled for hemodialysis tomorrow. Blood glucose has been adjusted to 15 units in the AM and 12 units HS and blood glucose has not been below 70 in the last 24 hours. Hemoglobin stable at 8.1. BUN of 22 and creatinine of 3.31. Magnesium 1.8. Review of Systems Constitutional: Denied any fatigue denied any fever. Cardio vascular: denied any chest pain, palpitations Gastrointestinal: Reports nausea, no reports of vomiting, no diarrhea Pulmonary: Reports continued shortness of breath and a cough with phlegm Neurologic denied any new focal deficits, diffusely weak All inpatient medications were reviewed and appropriate changes in these medications as dictated in the interval history and assessment and plan. PHYSICAL EXAMINATION: GENERAL: The patient is awake, alert and oriented x3. Well developed, well nourished. Appears older than stated age, currently maintained on 4 L via nasal cannula HEENT: Pupils are round and equally reacting to light. EOMI. No scleral icterus. No conjunctival pallor. Normocephalic, atraumatic. No pharyngeal erythema. No thyromegaly. CARDIOVASCULAR: S1 and S2 present. No murmurs, rubs, or gallops. PULMONARY: Diminished breath sounds bilaterally with some upper bronchial congestion noted with cough on exam and some faint lower expiratory wheezing at the bases Patient has crackles posteriorly bilaterally ABDOMEN: Soft, nontender, nondistended, normoactive bowel sounds. No palpable organomegaly. MUSCULOSKELETAL: No joint swelling or deformity. EXTREMITIES: No cyanosis, clubbing, or pedal edema. NEUROLOGICAL: Gross neurological examination did not reveal any focal deficits. Diffuse weakness SKIN: No rashes. Assessment: -Acute respiratory failure secondary to pulmonary edema from end-stage renal disease patient is undergoing hemodialysis received IV Lasix in the ER. -Nausea secondary to uremia and end-stage renal disease continues on antiemetics, continue oral Compazine as needed -History of gastroparesis maintained on Reglan on an outpatient basis -Anemia, likely chronic with chronic kidney disease -Leukocytosis with elevated procalcitonin level also has developed acute tr acheobronchitis patient has been started on IV azithromycin. -Chest pressure which appears more musculoskeletal in nature, pain is reproducible with palpation. Patient states this is from coughing. -Hypertension uncontrolled elevated , improved with hemodialysis -Gastroesophageal reflux disease -End-stage renal disease -Seizure disorder -Hypothyroidism -Chronic pain patient continues on oral Conroy as well as baclofen, methocarbamol while as needed -Depression DVT prophylaxis: Subcutaneous heparin GI prophylaxis Full Code Plan: PT/OT consulted and following as patient will be returning to [facility] on discharge once cleared by consultations, continue with hemodialysis per nephrology. Patient is to receive hemodialysis today, with next scheduled treatment on Wednesday per nephrology. Patient is maintained on a Wednesday schedule on an outpatient basis. Patient was evaluated by GI. No plans for endoscopic intervention at this time. Patient had endoscopy on admission in January, showing antral gastritis and gastroparesis. Hemoglobin is stable today no active bleeding noted Case management following and plan is to return to [facility] once stabilized and cleared by consultations. Blood glucose control improving and patient has been resumed on her home regimen with 15 units daily and 12 units HS. HgbA1C 5.8. Patient continues on sliding scale insulin with meals and accuchecks [id number]. Continue on low salt diet and 1500 cc fluid restriction. Patient having some cough and upper bronchial congestion with some faint wheezing and crackles noted. Chest x-ray obtained showing similar volume overload with pulmonary vascular congestion. procalcitonin level significantly elevated and will continue on antibiotics. Continue on mucinex. Sputum culture pending. Encouraged incentive spirometer use The impression and plan of care has been dictated by Yeni Blackburn, Nurse Practitioner as directed. Dr. Connie MD I have performed a history and physical examination and medical decision making of this patient, discussed the same with the dictator, and agree with the dictators assessment and plan as written, documented as a scribe. Based on total visit time, I have performed more than 50% of this visit. Objective - Vital Signs Vital signs: Vital Signs Temp 98 F 03/19/24 16:05 Pulse 87 03/19/24 16:05 Resp 20 03/19/24 16:05 BP 137/77 03/19/24 16:05 Pulse Ox 99 03/19/24 16:05 FiO2 40 03/16/24 12:03 Intake & Output 03/18/24 03/19/24 03/19/24 18:59 06:59 18:59 Intake Total 154 800 3098 Output Total 4400 Balance 990 -3520 2110 Weight 78.7 kg Intake: IV 20 Invasive Line 1 10 Invasive Line 3 10 Intake, IV Titration 250 450 Amount Azithromycin 500 mg In 250 250 Sodium Chloride 0.9% 250 ml @ 250 mls/hr IVPB DAILY [facility] Rx#:[id number] Magnesium Sulfate-D5w Pmx 100 1 gm In Dextrose/Water 1 100ml.bag @ 100 mls/hr IVPB ONCE ONE Rx#: [id number] Sodium Ferric Gluconat- 100 Sucrose 125 mg In Sodium Chloride 0.9% 100 ml @ 100 mls/hr IVPB DAILY [facility] Rx#:[id number] Oral 105 470 6726 Hemodialysis 400 Output: Hemodialysis 4400 Other: Voiding Method Bedside Commode Bedside Commode Bedside Commode # Voids 1 # Bowel Movements 1 - Labs CBC & Chem 7: 03/19/24 07:09 03/19/24 07:09 Labs: Abnormal Lab Results - Last 24 Hours (Table) 03/18/24 03/19/24 03/19/24 Range/Units 19:45 07:09 07:09 RBC 2.49 L (3.80-5.40) m/uL Hgb 8.1 L (11.4-16.0) gm/dL Hct 24.2 L (34.0-46.0) % Eosinophils # 2.0 H (0-0.7) k/uL Sodium 136 L (137-145) mmol/L Carbon Dioxide 31 H (22-30) mmol/L BUN 22 H (7-17) mg/dL Creatinine 3.31 H (0.52-1.04) mg/dL POC Glucose (mg/dL) 424 H (70-110) mg/dL 03/19/24 Range/Units 16:25 RBC (3.80-5.40) m/uL Hgb (11.4-16.0) gm/dL Hct (34.0-46.0) % Eosinophils # (0-0.7) k/uL Sodium (137-145) mmol/L Carbon Dioxide (22-30) mmol/L BUN (7-17) mg/dL Creatinine (0.52-1.04) mg/dL POC Glucose (mg/dL) 172 H (70-110) mg/dL Microbiology - Last 24 Hours (Table) 03/18/24 02:00 Gram Stain - Preliminary Sputum Assessment and Plan Time with Patient: Less than 30
[2024-03-19 20:13] LABS: Glucose,Whole Blood 327 mg/dL (70-110)
[2024-03-20 01:51] LABS: Glucose,Whole Blood 228 mg/dL (70-110)
[2024-03-20 05:57] LABS: Glucose,Whole Blood 124 mg/dL (70-110)
[2024-03-20] MEDS: DARBEPOETIN ALFA 40 MCG/0.4 ML SYRINGE SQ SCH (09:55)
--- NOTE | 2024-03-20 10:10 | P.PN ---
Subjective Patient is seen in follow-up for end-stage renal disease. She is maintained on hemodialysis 4 days a week. Tolerating dialysis well. On nasal cannula. Vital signs are stable. General: Resting in bed. HEENT: On nasal cannula. LUNGS: No audible rhonchi or wheezes. HEART: Rate and Rhythm are regular. ABDOMEN: Nontender. EXTREMITITES: Trace edema. Objective - Vital Signs Vital signs: Vital Signs Temp 97.8 F 03/20/24 03:54 Pulse 88 03/20/24 08:43 Resp 16 03/20/24 03:54 BP 153/74 03/20/24 03:54 Pulse Ox 98 03/20/24 08:35 FiO2 40 03/16/24 12:03 Intake & Output 03/19/24 03/20/24 03/20/24 18:59 06:59 18:59 Intake Total 2110 540 Output Total 0 Balance 2110 540 Weight 77 kg Intake: Intake, IV Titration 450 Amount Azithromycin 500 mg In 250 Sodium Chloride 0.9% 250 ml @ 250 mls/hr IVPB DAILY [facility] Rx#:[id number] Magnesium Sulfate-D5w Pmx 100 1 gm In Dextrose/Water 1 100ml.bag @ 100 mls/hr IVPB ONCE ONE Rx#: [id number] Sodium Ferric Gluconat- 100 Sucrose 125 mg In Sodium Chloride 0.9% 100 ml @ 100 mls/hr IVPB DAILY [facility] Rx#:[id number] Oral 1660 540 Output: Urine 0 Other: Voiding Method Bedside Commode Bedside Commode - Labs CBC & Chem 7: 03/19/24 07:09 03/19/24 07:09 Labs: Abnormal Lab Results - Last 24 Hours (Table) 03/19/24 03/19/24 03/20/24 Range/Units 16:25 20:12 01:49 POC Glucose (mg/dL) 172 H 327 H 228 H (70-110) mg/dL 03/20/24 Range/Units 05:55 POC Glucose (mg/dL) 124 H (70-110) mg/dL Microbiology - Last 24 Hours (Table) 03/19/24 08:40 Gram Stain - Preliminary Sputum Sputum Culture - Preliminary 03/18/24 02:00 Gram Stain - Final Sputum Sputum Culture - Final Assessment and Plan Plan: Assessment: 1. End-stage renal disease maintained on hemodialysis Wednesday. 2. Acute hypoxic respiratory failure. Now on nasal cannula. 3. Volume overload. Improving with ultrafiltration. 4. Acute on chronic diastolic CHF. 5. Diabetes mellitus. 6. Hypertensive urgency. Improved. 7. Anemia of chronic kidney disease maintained on Aranesp. Status post blood transfusion this admission. Denies any active bleeding. 8. Chronic kidney disease mineral bone disease maintained on Renvela. Phosphorus level 4.7 dated March 16, 2024. Plan: Currently seen while undergoing hemodialysis. Maintain low-salt diet and 1500 cc fluid restriction. Maintain IV iron.
[2024-03-20 11:33] LABS: Glucose,Whole Blood 86 mg/dL (70-110)
[2024-03-20 16:36] LABS: Glucose,Whole Blood 256 mg/dL (70-110)
[2024-03-20 18:44] LABS: Hepatitis B Surface Antigen Nonreactive (Nonreactive)
[2024-03-20 20:20] LABS: Glucose,Whole Blood 446 mg/dL (70-110)
--- NOTE | 2024-03-20 20:43 | P.PN ---
Subjective Progress Note Date: 03/20/24 34-year-old female came in with complaints of shortness of breath and patient is presently on BiPAP.. Patient has history of end-stage renal disease on hemodialysis did not miss any hemodialysis as per the patient patient is found to have severe pulmonary edema and and patient is undergoing hemodialysis with removal of the 3.5 L of fluid. Patient blood pressure is high. Patient had normal ejection fraction does not have any history of heart failure patient does not urinate much. Patient is complaining of pain in the chest because of which cardiology evaluated the patient, EKG did not show any acute ST-T wave changes. 1 set of troponin is within normal limits patient's proBNP is elevated to 22, 200. Patient has not had any fever chills patient does have leukocytosis 12,600 03/15/2024 Patient is evaluated today resting in bed during hemodialysis. She continues to report significant nausea as well as her chronic back pain. Patient is requesting additional nausea medication. Patient was started on a heart healthy diet which was not started until this morning unfortunately she did not get any dinner and was given a dose of Levemir 40 units at at bedtime due to increased blood glucose and blood sugar was down until 33 today because she is currently up to 74. Would recommend to hold the evening dose of Levemir for blood glucose remains below 100. Levemir was also decreased back to her usual dose of 25 units at bedtime. Patient continues on 3 L of oxygen. Patient is a // Wednesday hemodialysis patient although has been getting hemodialysis 4 to 5 times weekly on an outpatient basis and has not been complaint with fluid restrictions. 03/16/2024 Patient is seen and evaluated in follow-up today with multiple medical consultations following. Patient receiving hemodialysis today. Patient continues to report significant shortness of breath and had been requesting BiPAP. Patient chronically wears oxygen in the outpatient setting. Patient's blood sugars have been on the lower side and will adjust long-acting send continue with sliding scales and Accu-Cheks before meals and at bedtime and at 2 AM. No active bleeding noted and patient's hemoglobin is stable at 7.4. GI was consulted for anemia and ordered iron studies with no plans of surgical endoscopic intervention at this time. Patient recently had endoscopy with general surgery last admission. Patient is afebrile reporting continued weakness and awaiting PT/OT therapy. Patient currently resides at [facility] and plans on returning there. Will follow-up with consultations regarding discharge planning in the next 24 to 48 hours 03/17/2024 Patient is seen in follow-up today with multiple medical consultations following including cardiology and nephrology. Patient is being dialyzed today and will need additional dialyzing tomorrow with continued volume overload. Patient having some cough with congestion and some faint wheezing on expiration noted. Patient notes the sputum is greenish and will initiate empiric Zithromax along with DuoNeb treatments scheduled and as needed and will obtain a chest x-ray. Patient to be evaluated by physical therapy with plans on returning to [facility] once stabilized and discharged. Patient is currently afebrile reports continued back pain with no relief in pain medications. White count today is 14.2, hemoglobin is 8.2, platelets 256, sodium is 130 with a potassium of 4.3, BUN is 26 and creatinine is currently 3.38. Blood sugars being monitored and had been elevated with adjustments to medications being made. Patient reports she takes 15 units of long-acting during the day and 12 units at night when she does not have her pump. Patient was on a relatively high dose and had been having low blood sugars all day yesterday. Sugars are slightly elevated today and will adjust insulins accordingly. Continue monitoring Accu-Cheks before meals and at bedtime as well as 2 AM as patient has significantly uncontrolled diabetes. 03/18/2024 Patient is evaluated today in stepdown unit patient is undergoing hemodialysis. She states that her nausea has improved and continues on as needed Zofran and Compazine. Patient does continue to report cough with sputum production continues on azithromycin. Her procalcitonin level was significantly elevated. Patient is reporting some chest discomfort secondary to the cough. Blood sugars remain low in the morning down to the 30s again. Patient states that she takes 15 units in the morning and only 13 units in the evening and we will just the Levemir as accordingly and continue to monitor blood glucose Accu-Cheks before meals and at bedtime as well as 2 AM. Sputum culture is currently pending at this time. White blood cell count improved to 9.2 hemoglobin 7.5, sodium level 132, BUN 26, creatinine of 3.54 today. 03/19/2024 Patient evaluated in follow up. Resting comfortably. Patient underwent h emodialysis yesterday with 4L of ultrafiltration and is scheduled for hemodialysis tomorrow. Blood glucose has been adjusted to 15 units in the AM and 12 units HS and blood glucose has not been below 70 in the last 24 hours. Hemoglobin stable at 8.1. BUN of 22 and creatinine of 3.31. Magnesium 1.8. 03/20/2024 Patient is evaluated today resting comfortably. Reports continued nausea but has been tolerating some diet. Patient reports improvement in the chest discomfort. States she is not coughing as much. Sputum culture is negative. Patient continues on hemodialysis 4 times per week. Patient is receiving IV iron. Blood glucose ranging from 86 to 446. She is on 2L of oxygen with saturations of 96% and this can be weaned. Blood pressure improved. Review of Systems Constitutional: Denied any fatigue denied any fever. Cardio vascular: denied any chest pain, palpitations Gastrointestinal: Reports nausea, no reports of vomiting, no diarrhea Pulmonary: Reports continued shortness of breath and a cough with phlegm Neurologic denied any new focal deficits, diffusely weak All inpatient medications were reviewed and appropriate changes in these medications as dictated in the interval history and assessment and plan. PHYSICAL EXAMINATION: GENERAL: The patient is awake, alert and oriented x3. Well developed, well nourished. Appears older than stated age, currently maintained on 4 L via nasal cannula HEENT: Pupils are round and equally reacting to light. EOMI. No scleral icterus. No conjunctival pallor. Normocephalic, atraumatic. No pharyngeal erythema. No thyromegaly. CARDIOVASCULAR: S1 and S2 present. No murmurs, rubs, or gallops. PULMONARY: Diminished breath sounds bilaterally with some upper bronchial congestion noted with cough on exam and some faint lower expiratory wheezing at the bases Patient has crackles posteriorly bilaterally ABDOMEN: Soft, nontender, nondistended, normoactive bowel sounds. No palpable organomegaly. MUSCULOSKELETAL: No joint swelling or deformity. EXTREMITIES: No cyanosis, clubbing, or pedal edema. NEUROLOGICAL: Gross neurological examination did not reveal any focal deficits. Diffuse weakness SKIN: No rashes. Assessment: -Acute respiratory failure secondary to pulmonary edema from end-stage renal disease patient is undergoing hemodialysis received IV Lasix in the ER. -Nausea secondary to uremia and end-stage renal disease continues on antiemetics, continue oral Compazine as needed -History of gastroparesis maintained on Reglan on an outpatient basis -Anemia, likely chronic with chronic kidney disease -Leukocytosis with elevated procalcitonin level also has developed acute tracheobronchitis patient has completed course of azithromycin. -Chest pressure which appears more musculoskeletal in nature, pain is reproducible with palpation. Patient states this is from coughing. -Hypertension uncontrolled elevated , improved with hemodialysis -Gastroesophageal reflux disease -End-stage renal disease -Seizure disorder -Hypothyroidism -Chronic pain patient continues on oral [employer] as well as baclofen, methocarbamol while as needed -Depression DVT prophylaxis: Subcutaneous heparin GI prophylaxis Full Code Plan: PT/OT consulted and following as patient will be returning to [facility] on discharge once cleared by consultations, continue with hemodialysis per nephrology. Patient is to receive hemodialysis today, and again tomorrow per nephrology. Patient is maintained on a Wednesday schedule on an outpatient basis. Patient was evaluated by GI. No plans for endoscopic intervention at this time. Patient had endoscopy on admission in January, showing antral gastritis and gastroparesis. Hemoglobin is stable today no active bleeding noted Case management following and plan is to return to [facility] once stabilized and cleared by consultations. Blood glucose control improving and patient has been resumed on her home regimen with 15 units daily and 12 units HS. HgbA1C 5.8. Patient continues on sliding scale insulin with meals and accuchecks [id number]. Continue on low salt diet and 1500 cc fluid restriction. Chest x-ray obtained showing similar volume overload with pulmonary vascular congestion. Continue on mucinex. Sputum culture pending. Encouraged incentive spirometer use The impression and plan of care has been dictated by Yeni Blackburn, Nurse Practitioner as directed. Dr. Connie MD I have performed a history and physical examination and medical decision making of this patient, discussed the same with the dictator, and agree with the dictators assessment and plan as written, documented as a scribe. Based on total visit time, I have performed more than 50% of this visit. Objective - Vital Signs Vital signs: Vital Signs Temp 98.2 F 03/20/24 19:50 Pulse 92 03/20/24 19:50 Resp 16 03/20/24 19:50 BP 126/66 03/20/24 19:50 Pulse Ox 96 03/20/24 19:50 FiO2 40 03/16/24 12:03 Intake & Output 03/20/24 03/20/24 03/21/24 06:59 18:59 06:59 Intake Total 540 1280 Output Total 0 5000 Balance 540 -3720 Weight 77 kg Intake: Intake, IV Titration 100 Amount Sodium Ferric Gluconat- 100 Sucrose 125 mg In Sodium Chloride 0.9% 100 ml @ 100 mls/hr IVPB DAILY [facility] Rx#:[id number] Oral 540 180 Hemodialysis 1000 Output: Urine 0 Hemodialysis 5000 Other: Voiding Method Bedside Commode Bedside Commode - Labs CBC & Chem 7: 03/19/24 07:09 03/19/24 07:09 Labs: Abnormal Lab Results - Last 24 Hours (Table) 03/20/24 03/20/24 03/20/24 Range/Units 01:49 05:55 12:18 POC Glucose (mg/dL) 228 H 124 H (70-110) mg/dL Hep Bs Antibody A (Negative) 03/20/24 03/20/24 Range/Units 16:35 20:18 POC Glucose (mg/dL) 256 H 446 H (70-110) mg/dL Hep Bs Antibody (Negative) Microbiology - Last 24 Hours (Table) 03/19/24 08:40 Gram Stain - Preliminary Sputum Sputum Culture - Preliminary 03/18/24 02:00 Gram Stain - Final Sputum Sputum Culture - Final Assessment and Plan Time with Patient: Less than 30
[2024-03-21 01:55] LABS: Glucose,Whole Blood 374 mg/dL (70-110)
[2024-03-21 06:00] LABS: Glucose,Whole Blood 248 mg/dL (70-110)
[2024-03-21 07:32] LABS: African American GFR (CKD) 19 (>60 ml/min/1.73 sqM); Anion Gap 7 mmol/L; Blood Urea Nitrogen 25 mg/dL (7-17); Calcium 8.7 mg/dL (8.4-10.2); Carbon Dioxide 29 mmol/L (22-30); Chloride 98 mmol/L (98-107); Glucose 204 mg/dL (74-99); Non-African American GFR(CKD) 17 (>60 ml/min/1.73 sqM); Potassium 4.7 mmol/L (3.5-5.1); Sodium 134 mmol/L (137-145)
--- NOTE | 2024-03-21 10:09 | P.PN ---
Subjective Patient is seen in follow-up for end-stage renal disease. She is maintained on hemodialysis 4 days a week. Tolerated over 4 L ultrafiltration yesterday. On nasal cannula. Vital signs are stable. General: Resting in bed. HEENT: On nasal cannula. LUNGS: No audible rhonchi or wheezes. HEART: Rate and Rhythm are regular. ABDOMEN: Nontender. EXTREMITITES: Trace edema. Objective - Vital Signs Vital signs: Vital Signs Temp 97.6 F 03/21/24 08:00 Pulse 87 03/21/24 08:00 Resp 20 03/21/24 08:00 BP 143/86 03/21/24 08:00 Pulse Ox 100 03/21/24 08:00 FiO2 40 03/16/24 12:03 Intake & Output 03/20/24 03/21/24 03/21/24 18:59 06:59 18:59 Intake Total 1280 540 472 Output Total 5000 Balance -3720 540 472 Weight 75 kg Intake: Intake, IV Titration 100 Amount Sodium Ferric Gluconat- 100 Sucrose 125 mg In Sodium Chloride 0.9% 100 ml @ 100 mls/hr IVPB DAILY [facility] Rx#:[id number] Oral 180 540 472 Hemodialysis 1000 Output: Hemodialysis 5000 Other: Voiding Method Bedside Commode Bedside Commode Bedside Commode # Voids 0 - Labs CBC & Chem 7: 03/19/24 07:09 03/21/24 06:39 Labs: Abnormal Lab Results - Last 24 Hours (Table) 03/20/24 03/20/24 03/20/24 Range/Units 12:18 16:35 20:18 Sodium (137-145) mmol/L BUN (7-17) mg/dL Creatinine (0.52-1.04) mg/dL Glucose (74-99) mg/dL POC Glucose (mg/dL) 256 H 446 H (70-110) mg/dL Hep Bs Antibody A (Negative) 03/21/24 03/21/24 03/21/24 Range/Units 01:52 05:58 06:39 Sodium 134 L (137-145) mmol/L BUN 25 H (7-17) mg/dL Creatinine 3.41 H (0.52-1.04) mg/dL Glucose 204 H (74-99) mg/dL POC Glucose (mg/dL) 374 H 248 H (70-110) mg/dL Hep Bs Antibody (Negative) Microbiology - Last 24 Hours (Table) 03/19/24 08:40 Gram Stain - Final Sputum Sputum Culture - Final 03/18/24 02:00 Gram Stain - Final Sputum Sputum Culture - Final Assessment and Plan Plan: Assessment: 1. End-stage renal disease maintained on hemodialysis Wednesday. 2. Acute hypoxic respiratory failure. On nasal cannula. 3. Volume overload. Improving with ultrafiltration. 4. Acute on chronic diastolic CHF. 5. Diabetes mellitus. 6. Hypertensive urgency. Improved. 7. Anemia of chronic kidney disease maintained on Aranesp. Status post blood transfusion this admission. Denies any active bleeding. 8. Chronic kidney disease mineral bone disease maintained on Renvela. Phosphorus level 4.7 dated March 16, 2024. Plan: Hemodialysis today. Maintain low-salt diet and 1500 cc fluid restriction. Maintain IV iron.
[2024-03-21 11:41] LABS: Glucose,Whole Blood 137 mg/dL (70-110)
[2024-03-21 14:29] VITALS: BMI 25.1
[2024-03-21 14:37] LABS: Appearance,Urine Clear (Clear); Bilirubin,Urine Negative (Negative); Blood,Urine Negative (Negative); Color,Urine Colorless; Glucose,Urine (UA) 4+ (Negative); Ketones,Urine Negative (Negative); Leukocyte Esterase,Urine Negative (Negative); Mucus,Urine Rare /hpf; Nitrite,Urine Negative (Negative); Protein,Urine 3+ (Negative); RBC,Urine 2 /hpf (0-5); Specific Gravity,Urine 1.008 (1.001-1.035); Squamous Epithelial Cell,Urine 3 /hpf (0-4); Urobilinogen,Urine <2.0 mg/dL (<2.0); WBC,Urine 15 /hpf (0-5)
--- NOTE | 2024-03-21 15:06 | P.PN ---
Subjective Progress Note Date: 03/21/24 34-year-old female came in with complaints of shortness of breath and patient is presently on BiPAP.. Patient has history of end-stage renal disease on hemodialysis did not miss any hemodialysis as per the patient patient is found to have severe pulmonary edema and and patient is undergoing hemodialysis with removal of the 3.5 L of fluid. Patient blood pressure is high. Patient had normal ejection fraction does not have any history of heart failure patient does not urinate much. Patient is complaining of pain in the chest because of which cardiology evaluated the patient, EKG did not show any acute ST-T wave changes. 1 set of troponin is within normal limits patient's proBNP is elevated to 22, 200. Patient has not had any fever chills patient does have leukocytosis 12,600 03/15/2024 Patient is evaluated today resting in bed during hemodialysis. She continues to report significant nausea as well as her chronic back pain. Patient is requesting additional nausea medication. Patient was started on a heart healthy diet which was not started until this morning unfortunately she did not get any dinner and was given a dose of Levemir 40 units at at bedtime due to increased blood glucose and blood sugar was down until 33 today because she is currently up to 74. Would recommend to hold the evening dose of Levemir for blood glucose remains below 100. Levemir was also decreased back to her usual dose of 25 units at bedtime. Patient continues on 3 L of oxygen. Patient is a // Wednesday hemodialysis patient although has been getting hemodialysis 4 to 5 times weekly on an outpatient basis and has not been complaint with fluid restrictions. 03/16/2024 Patient is seen and evaluated in follow-up today with multiple medical consultations following. Patient receiving hemodialysis today. Patient continues to report significant shortness of breath and had been requesting BiPAP. Patient chronically wears oxygen in the outpatient setting. Patient's blood sugars have been on the lower side and will adjust long-acting send continue with sliding scales and Accu-Cheks before meals and at bedtime and at 2 AM. No active bleeding noted and patient's hemoglobin is stable at 7.4. GI was consulted for anemia and ordered iron studies with no plans of surgical endoscopic intervention at this time. Patient recently had endoscopy with general surgery last admission. Patient is afebrile reporting continued weakness and awaiting PT/OT therapy. Patient currently resides at [facility] and plans on returning there. Will follow-up with consultations regarding discharge planning in the next 24 to 48 hours 03/17/2024 Patient is seen in follow-up today with multiple medical consultations following including cardiology and nephrology. Patient is being dialyzed today and will need additional dialyzing tomorrow with continued volume overload. Patient having some cough with congestion and some faint wheezing on expiration noted. Patient notes the sputum is greenish and will initiate empiric Zithromax along with DuoNeb treatments scheduled and as needed and will obtain a chest x-ray. Patient to be evaluated by physical therapy with plans on returning to [facility] once stabilized and discharged. Patient is currently afebrile reports continued back pain with no relief in pain medications. White count today is 14.2, hemoglobin is 8.2, platelets 256, sodium is 130 with a potassium of 4.3, BUN is 26 and creatinine is currently 3.38. Blood sugars being monitored and had been elevated with adjustments to medications being made. Patient reports she takes 15 units of long-acting during the day and 12 units at night when she does not have her pump. Patient was on a relatively high dose and had been having low blood sugars all day yesterday. Sugars are slightly elevated today and will adjust insulins accordingly. Continue monitoring Accu-Cheks before meals and at bedtime as well as 2 AM as patient has significantly uncontrolled diabetes. 03/18/2024 Patient is evaluated today in stepdown unit patient is undergoing hemodialysis. She states that her nausea has improved and continues on as needed Zofran and Compazine. Patient does continue to report cough with sputum production continues on azithromycin. Her procalcitonin level was significantly elevated. Patient is reporting some chest discomfort secondary to the cough. Blood sugars remain low in the morning down to the 30s again. Patient states that she takes 15 units in the morning and only 13 units in the evening and we will just the Levemir as accordingly and continue to monitor blood glucose Accu-Cheks before meals and at bedtime as well as 2 AM. Sputum culture is currently pending at this time. White blood cell count improved to 9.2 hemoglobin 7.5, sodium level 132, BUN 26, creatinine of 3.54 today. 03/19/2024 Patient evaluated in follow up. Resting comfortably. Patient underwent h emodialysis yesterday with 4L of ultrafiltration and is scheduled for hemodialysis tomorrow. Blood glucose has been adjusted to 15 units in the AM and 12 units HS and blood glucose has not been below 70 in the last 24 hours. Hemoglobin stable at 8.1. BUN of 22 and creatinine of 3.31. Magnesium 1.8. 03/20/2024 Patient is evaluated today resting comfortably. Reports continued nausea but has been tolerating some diet. Patient reports improvement in the chest discomfort. States she is not coughing as much. Sputum culture is negative. Patient continues on hemodialysis 4 times per week. Patient is receiving IV iron. Blood glucose ranging from 86 to 446. She is on 2L of oxygen with saturations of 96% and this can be weaned. Blood pressure improved. 03/21/2024 Patient evaluated in follow up today. She is sitting up in bed undergoing hemodialysis. Patient reports fullness and hearing loss to the right ear. Has completed course of antibiotics for the cough and congestion. Sputum culture neg ative. Blood glucose continues to range between 86 to 446 however has not had any episodes of hypoglycemia. Completed course of IV iron. Review of Systems Constitutional: Denied any fatigue denied any fever. Cardio vascular: denied any chest pain, palpitations Gastrointestinal: Reports nausea, no reports of vomiting, no diarrhea Pulmonary: Reports continued shortness of breath and a cough with phlegm Neurologic denied any new focal deficits, diffusely weak All inpatient medications were reviewed and appropriate changes in these medications as dictated in the interval history and assessment and plan. PHYSICAL EXAMINATION: GENERAL: The patient is awake, alert and oriented x3. Well developed, well nourished. Appears older than stated age, currently maintained on 4 L via nasal cannula HEENT: Pupils are round and equally reacting to light. EOMI. No scleral icterus. No conjunctival pallor. Normocephalic, atraumatic. No pharyngeal erythema. No thyromegaly. CARDIOVASCULAR: S1 and S2 present. No murmurs, rubs, or gallops. PULMONARY: Diminished breath sounds bilaterally with some upper bronchial congestion noted with cough on exam and some faint lower expiratory wheezing at the bases Patient has crackles posteriorly bilaterally ABDOMEN: Soft, nontender, nondistended, normoactive bowel sounds. No palpable organomegaly. MUSCULOSKELETAL: No joint swelling or deformity. EXTREMITIES: No cyanosis, clubbing, or pedal edema. NEUROLOGICAL: Gross neurological examination did not reveal any focal deficits. Diffuse weakness SKIN: No rashes. Assessment: -Acute respiratory failure secondary to pulmonary edema from end-stage renal disease patient is undergoing hemodialysis received IV Lasix in the ER. -Nausea secondary to uremia and end-stage renal disease continues on antiemet ics, continue oral Compazine as needed -History of gastroparesis maintained on Reglan on an outpatient basis -Anemia, likely chronic with chronic kidney disease underlying iron deficiency noted. -Leukocytosis with elevated procalcitonin level also has developed acute tracheobronchitis patient has completed course of azithromycin. -Chest pressure which appears more musculoskeletal in nature, pain is reproducible with palpation. Patient states this is from coughing. -Hypertension uncontrolled elevated , improved with hemodialysis -Gastroesophageal reflux disease -End-stage renal disease -Seizure disorder -Hypothyroidism -Chronic pain patient continues on oral Dalhart as well as baclofen, methocarbamol as needed -Depression DVT prophylaxis: Subcutaneous heparin GI prophylaxis Full Code Plan: PT/OT consulted and following as patient will be returning to [facility] on discharge once cleared by consultations, continue with hemodialysis per nephrology. Patient is to receive hemodialysis today with next scheduled session on . Patient is maintained on a Wednesday schedule on an outpatient basis. Patient was evaluated by GI. No plans for endoscopic intervention at this time. Patient had endoscopy on admission in January, showing antral gastritis and gastroparesis. Hemoglobin is stable today no active bleeding noted Case management following and plan is to return to [facility] once stabilized and cleared by consultations. Blood glucose control improving and patient has been resumed on her home regimen with 15 units daily and 12 units HS. HgbA1C 5.8. Patient continues on sliding scale insulin with meals and accuchecks [id number]. Continue on low salt diet and 1500 cc fluid restriction. Chest x-ray obtained showing similar volume overload with pulmonary vascular congestion. Continue on mucinex. Sputum culture pending. Encouraged incentive spirometer use Add Ciprodex ear gtts. The impression and plan of care has been dictated by Yeni Blackburn, Nurse Practitioner as directed. Dr. Connie MD I have performed a history and physical examination and medical decision making of this patient, discussed the same with the dictator, and agree with the dictators assessment and plan as written, documented as a scribe. Based on total visit time, I have performed more than 50% of this visit. Objective - Vital Signs Vital signs: Vital Signs Temp 98 F 03/21/24 11:45 Pulse 92 03/21/24 12:08 Resp 20 03/21/24 11:45 BP 173/89 03/21/24 11:45 Pulse Ox 99 03/21/24 11:45 FiO2 40 03/16/24 12:03 Intake & Output 03/20/24 03/21/24 03/21/24 18:59 06:59 18:59 Intake Total 1280 540 472 Output Total 5000 300 Balance -3720 540 172 Weight 75 kg 75 kg Intake: Intake, IV Titration 100 Amount Sodium Ferric Gluconat- 100 Sucrose 125 mg In Sodium Chloride 0.9% 100 ml @ 100 mls/hr IVPB DAILY [facility] Rx#:[id number] Oral 180 540 472 Hemodialysis 1000 Output: Urine 300 Hemodialysis 5000 Other: Voiding Method Bedside Commode Bedside Commode Bedside Commode # Voids 0 - Labs CBC & Chem 7: 03/19/24 07:09 03/21/24 06:39 Labs: Abnormal Lab Results - Last 24 Hours (Table) 03/20/24 03/20/24 03/20/24 Range/Units 12:18 16:35 20:18 Sodium (137-145) mmol/L BUN (7-17) mg/dL Creatinine (0.52-1.04) mg/dL Glucose (74-99) mg/dL POC Glucose (mg/dL) 256 H 446 H (70-110) mg/dL Urine Protein (Negative) Urine Glucose (UA) (Negative) Urine WBC (0-5) /hpf Urine Mucus (None) /hpf Hep Bs Antibody A (Negative) 03/21/24 03/21/24 03/21/24 Range/Units 01:52 05:58 06:39 Sodium 134 L (137-145) mmol/L BUN 25 H (7-17) mg/dL Creatinine 3.41 H (0.52-1.04) mg/dL Glucose 204 H (74-99) mg/dL POC Glucose (mg/dL) 374 H 248 H (70-110) mg/dL Urine Protein (Negative) Urine Glucose (UA) (Negative) Urine WBC (0-5) /hpf Urine Mucus (None) /hpf Hep Bs Antibody (Negative) 03/21/24 03/21/24 Range/Units 11:39 14:21 Sodium (137-145) mmol/L BUN (7-17) mg/dL Creatinine (0.52-1.04) mg/dL Glucose (74-99) mg/dL POC Glucose (mg/dL) 137 H (70-110) mg/dL Urine Protein 3+ H (Negative) Urine Glucose (UA) 4+ H (Negative) Urine WBC 15 H (0-5) /hpf Urine Mucus Rare H (None) /hpf Hep Bs Antibody (Negative) Microbiology - Last 24 Hours (Table) 03/19/24 08:40 Gram Stain - Final Sputum Sputum Culture - Final Assessment and Plan Time with Patient: Less than 30
[2024-03-21 16:36] LABS: Glucose,Whole Blood 262 mg/dL (70-110)
[2024-03-21 19:52] LABS: Glucose,Whole Blood 438 mg/dL (70-110)
[2024-03-21] MEDS: CIPROFLOXACIN-DEXAMETH 0.3-0.1% DROPS 7.5 ML BTL RIGHT EAR SCH (20:01)
[2024-03-22 02:10] LABS: Glucose,Whole Blood 230 mg/dL (70-110)
[2024-03-22 06:10] LABS: Glucose,Whole Blood 196 mg/dL (70-110)
[2024-03-22 11:18] LABS: Glucose,Whole Blood 262 mg/dL (70-110)
--- NOTE | 2024-03-22 11:55 | P.PN ---
Subjective Patient is seen in follow-up for end-stage renal disease. She is maintained on hemodialysis 4 days a week. Completed hemodialysis yesterday. Resting in bed. Vital signs are stable. General: Resting in bed. HEENT: On nasal cannula. LUNGS: No audible rhonchi or wheezes. HEART: Rate and Rhythm are regular. ABDOMEN: Nontender. EXTREMITITES: Trace edema. Objective - Vital Signs Vital signs: Vital Signs Temp 98 F 03/22/24 08:00 Pulse 92 03/22/24 11:50 Resp 18 03/22/24 08:00 BP 176/94 03/22/24 08:00 Pulse Ox 97 03/22/24 08:00 FiO2 40 03/16/24 12:03 Intake & Output 03/21/24 03/22/24 03/22/24 18:59 06:59 18:59 Intake Total 794 240 Output Total 300 Balance 494 240 Weight 75 kg 73.5 kg Intake: Intake, IV Titration 100 Amount Sodium Ferric Gluconat- 100 Sucrose 125 mg In Sodium Chloride 0.9% 100 ml @ 100 mls/hr IVPB DAILY [facility] Rx#:[id number] Oral 694 240 Output: Urine 300 Other: Voiding Method Bedside Commode Bedside Commode Bedside Commode - Labs CBC & Chem 7: 03/19/24 07:09 03/21/24 06:39 Labs: Abnormal Lab Results - Last 24 Hours (Table) 03/21/24 03/21/24 03/21/24 Range/Units 14:21 16:34 19:50 POC Glucose (mg/dL) 262 H 438 H (70-110) mg/dL Urine Protein 3+ H (Negative) Urine Glucose (UA) 4+ H (Negative) Urine WBC 15 H (0-5) /hpf Urine Mucus Rare H (None) /hpf 03/22/24 03/22/24 03/22/24 Range/Units 02:08 06:01 11:17 POC Glucose (mg/dL) 230 H 196 H 262 H (70-110) mg/dL Urine Protein (Negative) Urine Glucose (UA) (Negative) Urine WBC (0-5) /hpf Urine Mucus (None) /hpf Microbiology - Last 24 Hours (Table) 03/19/24 08:40 Gram Stain - Final Sputum Sputum Culture - Final Assessment and Plan Plan: Assessment: 1. End-stage renal disease maintained on hemodialysis Wednesday. 2. Acute hypoxic respiratory failure. On nasal cannula. 3. Volume overload. Improving with ultrafiltration. 4. Acute on chronic diastolic CHF. 5. Diabetes mellitus. 6. Hypertensive urgency. Improved. 7. Anemia of chronic kidney disease maintained on Aranesp. Status post IV iron . Status post blood transfusion this admission. Denies any active bleeding. 8. Chronic kidney disease mineral bone disease maintained on Renvela. Phosphorus level 4.7 dated March 16, 2024. 9. Pyuria with dysuria. Plan: Hemodialysis tomorrow. Add Cipro x 3 days. Maintain low-salt diet and 1500 cc fluid restriction.
[2024-03-22] MEDS: CIPROFLOXACIN HCL 500 MG TAB PO SCH (12:49)
--- NOTE | 2024-03-22 14:54 | P.PN ---
Subjective Progress Note Date: 03/22/24 34-year-old female came in with complaints of shortness of breath and patient is presently on BiPAP.. Patient has history of end-stage renal disease on hemodialysis did not miss any hemodialysis as per the patient patient is found to have severe pulmonary edema and and patient is undergoing hemodialysis with removal of the 3.5 L of fluid. Patient blood pressure is high. Patient had normal ejection fraction does not have any history of heart failure patient does not urinate much. Patient is complaining of pain in the chest because of which cardiology evaluated the patient, EKG did not show any acute ST-T wave changes. 1 set of troponin is within normal limits patient's proBNP is elevated to 22, 200. Patient has not had any fever chills patient does have leukocytosis 12,600 03/15/2024 Patient is evaluated today resting in bed during hemodialysis. She continues to report significant nausea as well as her chronic back pain. Patient is requesting additional nausea medication. Patient was started on a heart healthy diet which was not started until this morning unfortunately she did not get any dinner and was given a dose of Levemir 40 units at at bedtime due to increased blood glucose and blood sugar was down until 33 today because she is currently up to 74. Would recommend to hold the evening dose of Levemir for blood glucose remains below 100. Levemir was also decreased back to her usual dose of 25 units at bedtime. Patient continues on 3 L of oxygen. Patient is a // Wednesday hemodialysis patient although has been getting hemodialysis 4 to 5 times weekly on an outpatient basis and has not been complaint with fluid restrictions. 03/16/2024 Patient is seen and evaluated in follow-up today with multiple medical consultations following. Patient receiving hemodialysis today. Patient continues to report significant shortness of breath and had been requesting BiPAP. Patient chronically wears oxygen in the outpatient setting. Patient's blood sugars have been on the lower side and will adjust long-acting send continue with sliding scales and Accu-Cheks before meals and at bedtime and at 2 AM. No active bleeding noted and patient's hemoglobin is stable at 7.4. GI was consulted for anemia and ordered iron studies with no plans of surgical endoscopic intervention at this time. Patient recently had endoscopy with general surgery last admission. Patient is afebrile reporting continued weakness and awaiting PT/OT therapy. Patient currently resides at [facility] and plans on returning there. Will follow-up with consultations regarding discharge planning in the next 24 to 48 hours 03/17/2024 Patient is seen in follow-up today with multiple medical consultations following including cardiology and nephrology. Patient is being dialyzed today and will need additional dialyzing tomorrow with continued volume overload. Patient having some cough with congestion and some faint wheezing on expiration noted. Patient notes the sputum is greenish and will initiate empiric Zithromax along with DuoNeb treatments scheduled and as needed and will obtain a chest x-ray. Patient to be evaluated by physical therapy with plans on returning to [facility] once stabilized and discharged. Patient is currently afebrile reports continued back pain with no relief in pain medications. White count today is 14.2, hemoglobin is 8.2, platelets 256, sodium is 130 with a potassium of 4.3, BUN is 26 and creatinine is currently 3.38. Blood sugars being monitored and had been elevated with adjustments to medications being made. Patient reports she takes 15 units of long-acting during the day and 12 units at night when she does not have her pump. Patient was on a relatively high dose and had been having low blood sugars all day yesterday. Sugars are slightly elevated today and will adjust insulins accordingly. Continue monitoring Accu-Cheks before meals and at bedtime as well as 2 AM as patient has significantly uncontrolled diabetes. 03/18/2024 Patient is evaluated today in stepdown unit patient is undergoing hemodialysis. She states that her nausea has improved and continues on as needed Zofran and Compazine. Patient does continue to report cough with sputum production continues on azithromycin. Her procalcitonin level was significantly elevated. Patient is reporting some chest discomfort secondary to the cough. Blood sugars remain low in the morning down to the 30s again. Patient states that she takes 15 units in the morning and only 13 units in the evening and we will just the Levemir as accordingly and continue to monitor blood glucose Accu-Cheks before meals and at bedtime as well as 2 AM. Sputum culture is currently pending at this time. White blood cell count improved to 9.2 hemoglobin 7.5, sodium level 132, BUN 26, creatinine of 3.54 today. 03/19/2024 Patient evaluated in follow up. Resting comfortably. Patient underwent h emodialysis yesterday with 4L of ultrafiltration and is scheduled for hemodialysis tomorrow. Blood glucose has been adjusted to 15 units in the AM and 12 units HS and blood glucose has not been below 70 in the last 24 hours. Hemoglobin stable at 8.1. BUN of 22 and creatinine of 3.31. Magnesium 1.8. 03/20/2024 Patient is evaluated today resting comfortably. Reports continued nausea but has been tolerating some diet. Patient reports improvement in the chest discomfort. States she is not coughing as much. Sputum culture is negative. Patient continues on hemodialysis 4 times per week. Patient is receiving IV iron. Blood glucose ranging from 86 to 446. She is on 2L of oxygen with saturations of 96% and this can be weaned. Blood pressure improved. 03/21/2024 Patient evaluated in follow up today. She is sitting up in bed undergoing hemodialysis. Patient reports fullness and hearing loss to the right ear. Has completed course of antibiotics for the cough and congestion. Sputum culture neg ative. Blood glucose continues to range between 86 to 446 however has not had any episodes of hypoglycemia. Completed course of IV iron. 03/22/2024 Patient is evaluated today in follow-up patient is scheduled to undergo hemodialysis tomorrow. Currently resting in bed with started on Ciprodex eard rops for reports of fullness to the right ear. Cough has been improving. Patient was started on Cipro for 3 days by nephrology with concern for dysuria although patient has not mentioned this. Her urinalysis was not overly suggestive of infection there was 15 white blood cells and rare mucus 3+ protein 4+ glucose. Review of Systems Constitutional: Denied any fatigue denied any fever. Cardio vascular: denied any chest pain, palpitations Gastrointestinal: Reports nausea, no reports of vomiting, no diarrhea Pulmonary: Reports continued shortness of breath and a cough with phlegm Neurologic denied any new focal deficits, diffusely weak All inpatient medications were reviewed and appropriate changes in these medications as dictated in the interval history and assessment and plan. PHYSICAL EXAMINATION: GENERAL: The patient is awake, alert and oriented x3. Well developed, well nourished. Appears older than stated age, currently maintained on 4 L via nasal cannula HEENT: Pupils are round and equally reacting to light. EOMI. No scleral icterus. No conjunctival pallor. Normocephalic, atraumatic. No pharyngeal erythema. No thyromegaly. CARDIOVASCULAR: S1 and S2 present. No murmurs, rubs, or gallops. PULMONARY: Diminished breath sounds bilaterally with some upper bronchial loree estion noted with cough on exam and some faint lower expiratory wheezing at the bases Patient has crackles posteriorly bilaterally ABDOMEN: Soft, nontender, nondistended, normoactive bowel sounds. No palpable organomegaly. MUSCULOSKELETAL: No joint swelling or deformity. EXTREMITIES: No cyanosis, clubbing, or pedal edema. NEUROLOGICAL: Gross neurological examination did not reveal any focal deficits. Diffuse weakness SKIN: No rashes. Assessment: -Acute respiratory failure secondary to pulmonary edema from end-stage renal disease patient is undergoing hemodialysis received IV Lasix in the ER. -Nausea secondary to uremia and end-stage renal disease continues on antiemetics, continue oral Compazine as needed -History of gastroparesis maintained on Reglan on an outpatient basis -Anemia, likely chronic with chronic kidney disease underlying iron deficiency noted. -Leukocytosis with elevated procalcitonin level also has developed acute tracheobronchitis patient has completed course of azithromycin. -Chest pressure which appears more musculoskeletal in nature, pain is reproducible with palpation. Patient states this is from coughing. -Hypertension uncontrolled elevated , improved with hemodialysis -Gastroesophageal reflux disease -End-stage renal disease -Seizure disorder -Hypothyroidism -Chronic pain patient continues on oral [place] as well as baclofen, methocarbamol as needed -Depression DVT prophylaxis: Subcutaneous heparin GI prophylaxis Full Code Plan: PT/OT consulted and following as patient will be returning to [facility] on discharge once cleared by consultations, continue with hemodialysis per nephrology. Patient will be dialyzed tomorrow. Patient is maintained on a Wednesday schedule on an outpatient basis. Patient was evaluated by GI. No plans for endoscopic intervention at this time. Patient had endoscopy on admission in January, showing antral gastritis and gastroparesis. Hemoglobin is stable today no active bleeding noted Case management following and plan is to return to [facility] once stabilized and cleared by consultations. Blood glucose control improving and patient has been resumed on her home regimen with 15 units daily and 12 units HS. HgbA1C 5.8. Patient continues on sliding scale insulin with meals and accuchecks [id number]. Continue on low salt diet and 1500 cc fluid restriction. Chest x-ray obtained showing similar volume overload with pulmonary vascular congestion. Continue on mucinex. Sputum culture pending. Encouraged incentive spirometer use Add Ciprodex ear gtts. Repeat labs in the morning The impression and plan of care has been dictated by Yeni Blackburn, Nurse Practitioner as directed. Dr. Connie MD I have performed a history and physical examination and medical decision making of this patient, discussed the same with the dictator, and agree with the dictators assessment and plan as written, documented as a scribe. Based on total visit time, I have performed more than 50% of this visit. Objective - Vital Signs Vital signs: Vital Signs Temp 98 F 03/22/24 11:54 Pulse 87 03/22/24 11:54 Resp 18 03/22/24 11:54 BP 175/92 03/22/24 11:54 Pulse Ox 100 03/22/24 11:54 FiO2 40 03/16/24 12:03 Intake & Output 03/21/24 03/22/24 03/22/24 18:59 06:59 18:59 Intake Total 794 480 Output Total 300 Balance 494 480 Weight 75 kg 73.5 kg Intake: Intake, IV Titration 100 Amount Sodium Ferric Gluconat- 100 Sucrose 125 mg In Sodium Chloride 0.9% 100 ml @ 100 mls/hr IVPB DAILY [facility] Rx#:[id number] Oral 694 480 Output: Urine 300 Other: Voiding Method Bedside Commode Bedside Commode Bedside Commode - Labs CBC & Chem 7: 03/19/24 07:09 03/21/24 06:39 Labs: Abnormal Lab Results - Last 24 Hours (Table) 03/21/24 03/21/24 03/22/24 Range/Units 16:34 19:50 02:08 POC Glucose (mg/dL) 262 H 438 H 230 H (70-110) mg/dL 03/22/24 03/22/24 Range/Units 06:01 11:17 POC Glucose (mg/dL) 196 H 262 H (70-110) mg/dL Assessment and Plan Time with Patient: Less than 30
[2024-03-22 16:34] LABS: Glucose,Whole Blood 350 mg/dL (70-110)
[2024-03-22 20:05] LABS: Glucose,Whole Blood 426 mg/dL (70-110)
[2024-03-22] MEDS: INSULIN DETEMIR (LEVEMIR) 100 UNIT/ML SYR SQ SCH (21:40)
[2024-03-23 01:58] LABS: Glucose,Whole Blood 222 mg/dL (70-110)
[2024-03-23 05:56] LABS: Glucose,Whole Blood 140 mg/dL (70-110)
[2024-03-23 10:32] LABS: Basophils # (A) 0.1 k/uL (0-0.2); Basophils % (A) 1 %; Eosinophils # (A) 2.2 k/uL (0-0.7); Eosinophils % (A) 17 %; HCT 24.8 % (34.0-46.0); Lymphocytes # (A) 1.7 k/uL (1.0-4.8); Lymphocytes % (A) 13 %; MCHC 32.1 g/dL (31.0-37.0); MCV 99.7 fL (80.0-100.0); Macrocytosis Slight; Mean Platelet Volume 8.7; Monocytes # (A) 0.7 k/uL (0-1.0); Monocytes % (A) 6 %; Neutrophils # (A) 8.2 k/uL (1.3-7.7); Neutrophils % (A) 63 %; Platelet Count 380 k/uL (150-450); RBC 2.49 m/uL (3.80-5.40); RDW 14.9 % (11.5-15.5)
[2024-03-23 10:36] LABS: African American GFR (CKD) 14 (>60 ml/min/1.73 sqM); Anion Gap 11 mmol/L; Blood Urea Nitrogen 38 mg/dL (7-17); Calcium 9.4 mg/dL (8.4-10.2); Carbon Dioxide 25 mmol/L (22-30); Chloride 99 mmol/L (98-107); Glucose 107 mg/dL (74-99); Non-African American GFR(CKD) 12 (>60 ml/min/1.73 sqM); Potassium 5.7 mmol/L (3.5-5.1); Sodium 135 mmol/L (137-145)
--- NOTE | 2024-03-23 11:24 | P.PN ---
Subjective Patient is seen in follow-up for end-stage renal disease. She is maintained on hemodialysis 4 days a week. Tolerating dialysis well. Hemodynamically stable. Resting in bed. Vital signs are stable. General: Resting in bed. HEENT: On nasal cannula. LUNGS: No audible rhonchi or wheezes. HEART: Rate and Rhythm are regular. ABDOMEN: Nontender. EXTREMITITES: Trace edema. Objective - Vital Signs Vital signs: Vital Signs Temp 98.3 F 03/23/24 04:03 Pulse 92 03/23/24 09:25 Resp 18 03/23/24 04:03 BP 119/74 03/23/24 04:03 Pulse Ox 95 03/23/24 04:03 FiO2 40 03/16/24 12:03 Intake & Output 03/22/24 03/23/24 03/23/24 18:59 06:59 18:59 Intake Total 1939 360 Balance 1939 360 Intake: Oral 1939 360 Other: Voiding Method Bedside Commode Bedside Commode # Voids 2 2 - Labs CBC & Chem 7: 03/23/24 07:58 03/23/24 07:58 Labs: Abnormal Lab Results - Last 24 Hours (Table) 03/22/24 03/22/24 03/23/24 Range/Units 16:33 20:03 01:56 WBC (3.8-10.6) k/uL RBC (3.80-5.40) m/uL Hgb (11.4-16.0) gm/dL Hct (34.0-46.0) % Neutrophils # (1.3-7.7) k/uL Eosinophils # (0-0.7) k/uL Sodium (137-145) mmol/L Potassium (3.5-5.1) mmol/L BUN (7-17) mg/dL Creatinine (0.52-1.04) mg/dL Glucose (74-99) mg/dL POC Glucose (mg/dL) 350 H 426 H 222 H (70-110) mg/dL 03/23/24 03/23/24 03/23/24 Range/Units 05:55 07:58 07:58 WBC 13.0 H (3.8-10.6) k/uL RBC 2.49 L (3.80-5.40) m/uL Hgb 8.0 L (11.4-16.0) gm/dL Hct 24.8 L (34.0-46.0) % Neutrophils # 8.2 H (1.3-7.7) k/uL Eosinophils # 2.2 H (0-0.7) k/uL Sodium 135 L (137-145) mmol/L Potassium 5.7 H (3.5-5.1) mmol/L BUN 38 H (7-17) mg/dL Creatinine 4.38 H (0.52-1.04) mg/dL Glucose 107 H (74-99) mg/dL POC Glucose (mg/dL) 140 H (70-110) mg/dL Assessment and Plan Plan: Assessment: 1. End-stage renal disease maintained on hemodialysis Wednesday. 2. Acute hypoxic respiratory failure. On nasal cannula. 3. Volume overload. Improved with ultrafiltration. 4. Acute on chronic diastolic CHF. 5. Diabetes mellitus. 6. Hypertensive urgency. Improved. 7. Anemia of chronic kidney disease maintained on Aranesp. Status post IV iron. Status post blood transfusion this admission. Denies any active bleeding. 8. Chronic kidney disease mineral bone disease maintained on Renvela. Phosphorus level 4.7 dated March 16, 2024. 9. Pyuria with dysuria. On antibiotics. 10. Hyperkalemia secondary to chronic kidney disease. Expect improvement postdialysis. Plan: Currently seen while undergoing hemodialysis. Maintain renal diet and 1500 cc fluid restriction.
[2024-03-23 12:07] LABS: Glucose,Whole Blood 96 mg/dL (70-110)
[2024-03-23 17:04] LABS: Glucose,Whole Blood 349 mg/dL (70-110)
[2024-03-23 19:52] LABS: Glucose,Whole Blood 390 mg/dL (70-110)
[2024-03-23] MEDS ORDERED: SODIUM CHLORIDE 0.65% NASAL SPRAY 44 ML BTL NASAL PRN (22:03)
--- NOTE | 2024-03-23 22:14 | P.PN ---
Subjective Progress Note Date: 03/23/24 34-year-old female came in with complaints of shortness of breath and patient is presently on BiPAP.. Patient has history of end-stage renal disease on hemodialysis did not miss any hemodialysis as per the patient patient is found to have severe pulmonary edema and and patient is undergoing hemodialysis with removal of the 3.5 L of fluid. Patient blood pressure is high. Patient had normal ejection fraction does not have any history of heart failure patient does not urinate much. Patient is complaining of pain in the chest because of which cardiology evaluated the patient, EKG did not show any acute ST-T wave changes. 1 set of troponin is within normal limits patient's proBNP is elevated to 22, 200. Patient has not had any fever chills patient does have leukocytosis 12,600 03/15/2024 Patient is evaluated today resting in bed during hemodialysis. She continues to report significant nausea as well as her chronic back pain. Patient is requesting additional nausea medication. Patient was started on a heart healthy diet which was not started until this morning unfortunately she did not get any dinner and was given a dose of Levemir 40 units at at bedtime due to increased blood glucose and blood sugar was down until 33 today because she is currently up to 74. Would recommend to hold the evening dose of Levemir for blood glucose remains below 100. Levemir was also decreased back to her usual dose of 25 units at bedtime. Patient continues on 3 L of oxygen. Patient is a // Wednesday hemodialysis patient although has been getting hemodialysis 4 to 5 times weekly on an outpatient basis and has not been complaint with fluid restrictions. 03/16/2024 Patient is seen and evaluated in follow-up today with multiple medical consultations following. Patient receiving hemodialysis today. Patient continues to report significant shortness of breath and had been requesting BiPAP. Patient chronically wears oxygen in the outpatient setting. Patient's blood sugars have been on the lower side and will adjust long-acting send continue with sliding scales and Accu-Cheks before meals and at bedtime and at 2 AM. No active bleeding noted and patient's hemoglobin is stable at 7.4. GI was consulted for anemia and ordered iron studies with no plans of surgical endoscopic intervention at this time. Patient recently had endoscopy with general surgery last admission. Patient is afebrile reporting continued weakness and awaiting PT/OT therapy. Patient currently resides at [facility] and plans on returning there. Will follow-up with consultations regarding discharge planning in the next 24 to 48 hours 03/17/2024 Patient is seen in follow-up today with multiple medical consultations following including cardiology and nephrology. Patient is being dialyzed today and will need additional dialyzing tomorrow with continued volume overload. Patient having some cough with congestion and some faint wheezing on expiration noted. Patient notes the sputum is greenish and will initiate empiric Zithromax along with DuoNeb treatments scheduled and as needed and will obtain a chest x-ray. Patient to be evaluated by physical therapy with plans on returning to [facility] once stabilized and discharged. Patient is currently afebrile reports continued back pain with no relief in pain medications. White count today is 14.2, hemoglobin is 8.2, platelets 256, sodium is 130 with a potassium of 4.3, BUN is 26 and creatinine is currently 3.38. Blood sugars being monitored and had been elevated with adjustments to medications being made. Patient reports she takes 15 units of long-acting during the day and 12 units at night when she does not have her pump. Patient was on a relatively high dose and had been having low blood sugars all day yesterday. Sugars are slightly elevated today and will adjust insulins accordingly. Continue monitoring Accu-Cheks before meals and at bedtime as well as 2 AM as patient has significantly uncontrolled diabetes. 03/18/2024 Patient is evaluated today in stepdown unit patient is undergoing hemodialysis. She states that her nausea has improved and continues on as needed Zofran and Compazine. Patient does continue to report cough with sputum production continues on azithromycin. Her procalcitonin level was significantly elevated. Patient is reporting some chest discomfort secondary to the cough. Blood sugars remain low in the morning down to the 30s again. Patient states that she takes 15 units in the morning and only 13 units in the evening and we will just the Levemir as accordingly and continue to monitor blood glucose Accu-Cheks before meals and at bedtime as well as 2 AM. Sputum culture is currently pending at this time. White blood cell count improved to 9.2 hemoglobin 7.5, sodium level 132, BUN 26, creatinine of 3.54 today. 03/19/2024 Patient evaluated in follow up. Resting comfortably. Patient underwent h emodialysis yesterday with 4L of ultrafiltration and is scheduled for hemodialysis tomorrow. Blood glucose has been adjusted to 15 units in the AM and 12 units HS and blood glucose has not been below 70 in the last 24 hours. Hemoglobin stable at 8.1. BUN of 22 and creatinine of 3.31. Magnesium 1.8. 03/20/2024 Patient is evaluated today resting comfortably. Reports continued nausea but has been tolerating some diet. Patient reports improvement in the chest discomfort. States she is not coughing as much. Sputum culture is negative. Patient continues on hemodialysis 4 times per week. Patient is receiving IV iron. Blood glucose ranging from 86 to 446. She is on 2L of oxygen with saturations of 96% and this can be weaned. Blood pressure improved. 03/21/2024 Patient evaluated in follow up today. She is sitting up in bed undergoing hemodialysis. Patient reports fullness and hearing loss to the right ear. Has completed course of antibiotics for the cough and congestion. Sputum culture neg ative. Blood glucose continues to range between 86 to 446 however has not had any episodes of hypoglycemia. Completed course of IV iron. 03/22/2024 Patient is evaluated today in follow-up patient is scheduled to undergo hemodialysis tomorrow. Currently resting in bed with started on Ciprodex eard rops for reports of fullness to the right ear. Cough has been improving. Patient was started on Cipro for 3 days by nephrology with concern for dysuria although patient has not mentioned this. Her urinalysis was not overly suggestive of infection there was 15 white blood cells and rare mucus 3+ protein 4+ glucose. 03/23/2024 Patient is evaluated today in follow up. Complains of worsening sinus congestion and ear pressure. Also complaining of bilateral flank pain and dysuria although she does not make much urine. States the cough continues and having chest congestion. Started on cipro with concerns for UTI. Would recommend adjustment to IV ceftriaxone for the sinusitis and concern for urinalysis. Patient will be dialyzed today continues on usual Wed schedule. Nephrology following closely. Review of Systems Constitutional: Denied any fatigue denied any fever. Cardio vascular: denied any chest pain, palpitations Gastrointestinal: Reports nausea, no reports of vomiting, no diarrhea Pulmonary: Reports continued shortness of breath and a cough with phlegm Neurologic denied any new focal deficits, diffusely weak All inpatient medications were reviewed and appropriate changes in these medications as dictated in the interval history and assessment and plan. PHYSICAL EXAMINATION: GENERAL: The patient is awake, alert and oriented x3. Well developed, well nourished. Appears older than stated age, currently maintained on 4 L via nasal cannula HEENT: Pupils are round and equally reacting to light. EOMI. No scleral icterus. No conjunctival pallor. Normocephalic, atraumatic. No pharyngeal erythema. No thyromegaly. CARDIOVASCULAR: S1 and S2 present. No murmurs, rubs, or gallops. PULMONARY: Diminished breath sounds bilaterally with some upper bronchial conge stion noted with cough on exam and some faint lower expiratory wheezing at the bases Patient has crackles posteriorly bilaterally ABDOMEN: Soft, nontender, nondistended, normoactive bowel sounds. No palpable organomegaly. MUSCULOSKELETAL: No joint swelling or deformity. EXTREMITIES: No cyanosis, clubbing, or pedal edema. NEUROLOGICAL: Gross neurological examination did not reveal any focal deficits. Diffuse weakness SKIN: No rashes. Assessment: -Acute respiratory failure secondary to pulmonary edema from end-stage renal disease patient is undergoing hemodialysis received IV Lasix in the ER. Continues on oxygen at 3L nasal cannula. -Nausea secondary to uremia and end-stage renal disease continues on antiemetics, continue oral Compazine as needed, nausea has improved. -History of gastroparesis maintained on Reglan on an outpatient basis -Anemia, likely chronic with chronic kidney disease underlying iron deficiency noted. -Leukocytosis with elevated procalcitonin level also has developed acute tracheobronchitis patient has completed course of azithromycin. -Sinusitis -Chest pressure which appears more musculoskeletal in nature, pain is reproducible with palpation. Patient states this is from coughing. -Hypertension uncontrolled elevated , improved with hemodialysis -Gastroesophageal reflux disease -End-stage renal disease -Seizure disorder -Hypothyroidism -Chronic pain patient continues on oral [place] as well as baclofen, methocarbamol as needed -Depression DVT prophylaxis: Subcutaneous heparin GI prophylaxis Full Code Plan: PT/OT consulted and following as patient will be returning to [facility] on discharge once cleared by consultations, continue with hemodialysis per nephrology. Patient is maintained on a Wednesday schedule on an outpatient basis. Patient undergoing hemodialysis today. Patient was evaluated by GI. No plans for endoscopic intervention at this time. Patient had endoscopy on admission in January, showing antral gastritis and gastroparesis. Hemoglobin is stable today no active bleeding noted Case management following and plan is to return to [facility] once stabilized and cleared by consultations. Blood glucose control improving and patient has been resumed on her home regimen with 15 units daily and 12 units HS. HgbA1C 5.8. Patient continues on sliding scale insulin with meals and accuchecks [id number]. Continue on low salt diet and 1500 cc fluid restriction. Continues on oral cipro, consider switching to IV ceftriaxone while inpatient if no improvement in symptoms with concern for sinusitis. Patient started on medrol dose pack, claritin and also ciprodex ear gtts. Chest x-ray obtained showing similar volume overload with pulmonary vascular congestion. Continue on mucinex. Sputum culture pending. Encouraged incentive spirometer use Repeat labs in the morning The impression and plan of care has been dictated by Yeni Blackburn, Nurse Practitioner as directed. Dr. Connie MD I have performed a history and physical examination and medical decision making of this patient, discussed the same with the dictator, and agree with the dictators assessment and plan as written, documented as a scribe. Based on total visit time, I have performed more than 50% of this visit. Objective - Vital Signs Vital signs: Vital Signs Temp 98.8 F 03/23/24 13:55 Pulse 99 03/23/24 20:34 Resp 16 03/23/24 16:25 BP 164/92 03/23/24 16:25 Pulse Ox 98 03/23/24 16:25 FiO2 40 03/16/24 12:03 Intake & Output 03/23/24 03/23/24 03/24/24 06:59 18:59 06:59 Intake Total 360 720 240 Output Total 4400 Balance 360 -3680 240 Weight 76.6 kg Intake: Oral 360 320 240 Hemodialysis 400 Output: Urine 0 Hemodialysis 4400 Other: Voiding Method Bedside Commode Bedside Commode # Voids 2 0 # Bowel Movements 0 - Labs CBC & Chem 7: 03/23/24 07:58 03/23/24 07:58 Labs: Abnormal Lab Results - Last 24 Hours (Table) 03/23/24 03/23/24 03/23/24 Range/Units 01:56 05:55 07:58 WBC 13.0 H (3.8-10.6) k/uL RBC 2.49 L (3.80-5.40) m/uL Hgb 8.0 L (11.4-16.0) gm/dL Hct 24.8 L (34.0-46.0) % Neutrophils # 8.2 H (1.3-7.7) k/uL Eosinophils # 2.2 H (0-0.7) k/uL Sodium (137-145) mmol/L Potassium (3.5-5.1) mmol/L BUN (7-17) mg/dL Creatinine (0.52-1.04) mg/dL Glucose (74-99) mg/dL POC Glucose (mg/dL) 222 H 140 H (70-110) mg/dL 03/23/24 03/23/24 03/23/24 Range/Units 07:58 16:55 19:50 WBC (3.8-10.6) k/uL RBC (3.80-5.40) m/uL Hgb (11.4-16.0) gm/dL Hct (34.0-46.0) % Neutrophils # (1.3-7.7) k/uL Eosinophils # (0-0.7) k/uL Sodium 135 L (137-145) mmol/L Potassium 5.7 H (3.5-5.1) mmol/L BUN 38 H (7-17) mg/dL Creatinine 4.38 H (0.52-1.04) mg/dL Glucose 107 H (74-99) mg/dL POC Glucose (mg/dL) 349 H 390 H (70-110) mg/dL Assessment and Plan Time with Patient: Less than 30
[2024-03-24 02:25] LABS: Glucose,Whole Blood 124 mg/dL (70-110)
[2024-03-24 04:39] LABS: Glucose,Whole Blood 115 mg/dL (70-110)
[2024-03-24 05:53] LABS: Glucose,Whole Blood 120 mg/dL (70-110)
[2024-03-24] MEDS: methylPREDNISolone 4 MG TAB TAPER PO SCH (09:49)
[2024-03-24] MEDS: LORATADINE 10 MG TAB PO SCH (09:55)
[2024-03-24 10:01] LABS: Basophils # (A) 0.1 k/uL (0-0.2); Basophils % (A) 1 %; Eosinophils # (A) 2.1 k/uL (0-0.7); Eosinophils % (A) 14 %; HCT 27.2 % (34.0-46.0); HGB 8.4 gm/dL (11.4-16.0); Hypochromasia Slight; Lymphocytes # (A) 1.4 k/uL (1.0-4.8); Lymphocytes % (A) 10 %; MCH 31.5 pg (25.0-35.0); MCHC 31.1 g/dL (31.0-37.0); MCV 101.1 fL (80.0-100.0); Macrocytosis Slight; Monocytes # (A) 0.6 k/uL (0-1.0); Monocytes % (A) 4 %; Neutrophils # (A) 10.1 k/uL (1.3-7.7); Neutrophils % (A) 70 %; Platelet Count 437 k/uL (150-450); RBC 2.69 m/uL (3.80-5.40); RDW 15.3 % (11.5-15.5); WBC 14.4 k/uL (3.8-10.6)
[2024-03-24 10:34] LABS: African American GFR (CKD) 18 (>60 ml/min/1.73 sqM); Anion Gap 8 mmol/L; Blood Urea Nitrogen 28 mg/dL (7-17); Calcium 9.5 mg/dL (8.4-10.2); Carbon Dioxide 27 mmol/L (22-30); Chloride 98 mmol/L (98-107); Glucose 273 mg/dL (74-99); Magnesium 1.9 mg/dL (1.6-2.3); Non-African American GFR(CKD) 15 (>60 ml/min/1.73 sqM); Potassium 5.8 mmol/L (3.5-5.1); Sodium 133 mmol/L (137-145)
--- NOTE | 2024-03-24 11:02 | P.PN ---
Subjective Patient is seen in follow-up for end-stage renal disease. She is maintained on hemodialysis 4 days a week. Hemodynamically stable. Resting in bed. Vital signs are stable. General: Resting in bed. HEENT: On nasal cannula. LUNGS: No audible rhonchi or wheezes. HEART: Rate and Rhythm are regular. ABDOMEN: Nontender. EXTREMITITES: Trace edema. Objective - Vital Signs Vital signs: Vital Signs Temp 98 F 03/23/24 20:00 Pulse 85 03/24/24 04:00 Resp 16 03/24/24 04:00 BP 132/82 03/24/24 04:00 Pulse Ox 100 03/24/24 09:34 FiO2 40 03/16/24 12:03 Intake & Output 03/23/24 03/24/24 03/24/24 18:59 06:59 18:59 Intake Total 720 240 458 Output Total 4400 Balance -3680 240 458 Weight 70.3 kg Intake: Oral 320 240 458 Hemodialysis 400 Output: Urine 0 Hemodialysis 4400 Other: Voiding Method Bedside Commode Bedside Commode # Voids 0 2 # Bowel Movements 0 - Labs CBC & Chem 7: 03/24/24 09:34 03/24/24 09:34 Labs: Abnormal Lab Results - Last 24 Hours (Table) 03/23/24 03/23/24 03/24/24 Range/Units 16:55 19:50 02:23 WBC (3.8-10.6) k/uL RBC (3.80-5.40) m/uL Hgb (11.4-16.0) gm/dL Hct (34.0-46.0) % MCV (80.0-100.0) fL Neutrophils # (1.3-7.7) k/uL Eosinophils # (0-0.7) k/uL Sodium (137-145) mmol/L Potassium (3.5-5.1) mmol/L BUN (7-17) mg/dL Creatinine (0.52-1.04) mg/dL Glucose (74-99) mg/dL POC Glucose (mg/dL) 349 H 390 H 124 H (70-110) mg/dL 03/24/24 03/24/24 03/24/24 Range/Units 04:37 05:52 09:34 WBC 14.4 H (3.8-10.6) k/uL RBC 2.69 L (3.80-5.40) m/uL Hgb 8.4 L (11.4-16.0) gm/dL Hct 27.2 L (34.0-46.0) % MCV 101.1 H (80.0-100.0) fL Neutrophils # 10.1 H (1.3-7.7) k/uL Eosinophils # 2.1 H (0-0.7) k/uL Sodium (137-145) mmol/L Potassium (3.5-5.1) mmol/L BUN (7-17) mg/dL Creatinine (0.52-1.04) mg/dL Glucose (74-99) mg/dL POC Glucose (mg/dL) 115 H 120 H (70-110) mg/dL 03/24/24 Range/Units 09:34 WBC (3.8-10.6) k/uL RBC (3.80-5.40) m/uL Hgb (11.4-16.0) gm/dL Hct (34.0-46.0) % MCV (80.0-100.0) fL Neutrophils # (1.3-7.7) k/uL Eosinophils # (0-0.7) k/uL Sodium 133 L (137-145) mmol/L Potassium 5.8 H (3.5-5.1) mmol/L BUN 28 H (7-17) mg/dL Creatinine 3.70 H (0.52-1.04) mg/dL Glucose 273 H (74-99) mg/dL POC Glucose (mg/dL) (70-110) mg/dL Assessment and Plan Plan: Assessment: 1. End-stage renal disease maintained on hemodialysis Wednesday. 2. Acute hypoxic respiratory failure. On nasal cannula. 3. Volume overload. Improved with ultrafiltration. 4. Acute on chronic diastolic CHF. 5. Diabetes mellitus. 6. Hypertensive urgency. Improved. 7. Anemia of chronic kidney disease maintained on Aranesp. Status post IV iron. Status post blood transfusion this admission. Denies any active bleeding. 8. Chronic kidney disease mineral bone disease maintained on Renvela. Phosphorus level 4.7 dated March 16, 2024. 9. Pyuria with dysuria. On antibiotics. 10. Hyperkalemia secondary to chronic kidney disease. Potassium high at 5.8 this morning. Denies any active bleeding. Hemoglobin higher from yesterday. Plan: Show dialysis treatment today due to hyperkalemia. Plan for another treatment tomorrow. Maintain renal diet and 1500 cc fluid restriction. Blood sugar control. Add Lokelma.
[2024-03-24 11:18] LABS: Glucose,Whole Blood 414 mg/dL (70-110)
--- NOTE | 2024-03-24 15:15 | P.PN ---
Subjective Progress Note Date: 03/24/24 34-year-old female came in with complaints of shortness of breath and patient is presently on BiPAP.. Patient has history of end-stage renal disease on hemodialysis did not miss any hemodialysis as per the patient patient is found to have severe pulmonary edema and and patient is undergoing hemodialysis with removal of the 3.5 L of fluid. Patient blood pressure is high. Patient had normal ejection fraction does not have any history of heart failure patient does not urinate much. Patient is complaining of pain in the chest because of which cardiology evaluated the patient, EKG did not show any acute ST-T wave changes. 1 set of troponin is within normal limits patient's proBNP is elevated to 22 ,200. Patient has not had any fever chills patient does have leukocytosis 12,600 Objective - Vital Signs Vital signs: Vital Signs Temp 98 F 03/23/24 20:00 Pulse 85 03/24/24 04:00 Resp 16 03/24/24 04:00 BP 132/82 03/24/24 04:00 Pulse Ox 100 03/24/24 09:34 FiO2 40 03/16/24 12:03 Intake & Output 03/23/24 03/24/24 03/24/24 18:59 06:59 18:59 Intake Total 720 240 458 Output Total 4400 Balance -3680 240 458 Weight 70.3 kg Intake: Oral 320 240 458 Hemodialysis 400 Output: Urine 0 Hemodialysis 4400 Other: Voiding Method Bedside Commode Bedside Commode # Voids 0 2 # Bowel Movements 0 - Exam GENERAL: The patient is awake, alert and oriented x3. Well developed, well nourished. Appears older than stated age, currently maintained on 4 L via nasal cannula HEENT: Pupils are round and equally reacting to light. EOMI. No scleral icterus. No conjunctival pallor. Normocephalic, atraumatic. No pharyngeal erythema. No thyromegaly. CARDIOVASCULAR: S1 and S2 present. No murmurs, rubs, or gallops. PULMONARY: Diminished breath sounds bilaterally with some upper bronchial congestion noted with cough on exam and some faint lower expiratory wheezing at the bases Patient has crackles posteriorly bilaterally ABDOMEN: Soft, nontender, nondistended, normoactive bowel sounds. No palpable organomegaly. MUSCULOSKELETAL: No joint swelling or deformity. EXTREMITIES: No cyanosis, clubbing, or pedal edema. NEUROLOGICAL: Gross neurological examination did not reveal any focal deficits. Diffuse weakness SKIN: No rashes. - Labs CBC & Chem 7: 03/24/24 09:34 03/24/24 09:34 Labs: Abnormal Lab Results - Last 24 Hours (Table) 03/23/24 03/23/24 03/23/24 Range/Units 07:58 07:58 16:55 WBC 13.0 H (3.8-10.6) k/uL RBC 2.49 L (3.80-5.40) m/uL Hgb 8.0 L (11.4-16.0) gm/dL Hct 24.8 L (34.0-46.0) % MCV (80.0-100.0) fL Neutrophils # 8.2 H (1.3-7.7) k/uL Eosinophils # 2.2 H (0-0.7) k/uL Sodium 135 L (137-145) mmol/L Potassium 5.7 H (3.5-5.1) mmol/L BUN 38 H (7-17) mg/dL Creatinine 4.38 H (0.52-1.04) mg/dL Glucose 107 H (74-99) mg/dL POC Glucose (mg/dL) 349 H (70-110) mg/dL 03/23/24 03/24/24 03/24/24 Range/Units 19:50 02:23 04:37 WBC (3.8-10.6) k/uL RBC (3.80-5.40) m/uL Hgb (11.4-16.0) gm/dL Hct (34.0-46.0) % MCV (80.0-100.0) fL Neutrophils # (1.3-7.7) k/uL Eosinophils # (0-0.7) k/uL Sodium (137-145) mmol/L Potassium (3.5-5.1) mmol/L BUN (7-17) mg/dL Creatinine (0.52-1.04) mg/dL Glucose (74-99) mg/dL POC Glucose (mg/dL) 390 H 124 H 115 H (70-110) mg/dL 03/24/24 03/24/24 Range/Units 05:52 09:34 WBC 14.4 H (3.8-10.6) k/uL RBC 2.69 L (3.80-5.40) m/uL Hgb 8.4 L (11.4-16.0) gm/dL Hct 27.2 L (34.0-46.0) % MCV 101.1 H (80.0-100.0) fL Neutrophils # 10.1 H (1.3-7.7) k/uL Eosinophils # 2.1 H (0-0.7) k/uL Sodium (137-145) mmol/L Potassium (3.5-5.1) mmol/L BUN (7-17) mg/dL Creatinine (0.52-1.04) mg/dL Glucose (74-99) mg/dL POC Glucose (mg/dL) 120 H (70-110) mg/dL Assessment and Plan Assessment: -Acute respiratory failure secondary to pulmonary edema from end-stage renal disease patient is undergoing hemodialysis received IV Lasix in the ER. Continues on oxygen at 3L nasal cannula. -Nausea secondary to uremia and end-stage renal disease continues on antiemetics, continue oral Compazine as needed, nausea has improved. -History of gastroparesis maintained on Reglan on an outpatient basis -Anemia, likely chronic with chronic kidney disease underlying iron deficiency noted. -Leukocytosis with elevated procalcitonin level also has developed acute tracheobronchitis patient has completed course of azithromycin. -Sinusitis -Chest pressure which appears more musculoskeletal in nature, pain is repro ducible with palpation. Patient states this is from coughing. -Hypertension uncontrolled elevated , improved with hemodialysis -Gastroesophageal reflux disease -End-stage renal disease -Seizure disorder -Hypothyroidism -Chronic pain patient continues on oral [place] as well as baclofen, methocarbamol as needed -Depression DVT prophylaxis: Subcutaneous heparin GI prophylaxis Full Code
[2024-03-24 16:12] LABS: Glucose,Whole Blood 268 mg/dL (70-110)
[2024-03-24 20:29] LABS: Glucose,Whole Blood 226 mg/dL (70-110)
[2024-03-24 21:15] LABS: African American GFR (CKD) 23 (>60 ml/min/1.73 sqM); Anion Gap 11 mmol/L; Blood Urea Nitrogen 24 mg/dL (7-17); Calcium 8.8 mg/dL (8.4-10.2); Carbon Dioxide 26 mmol/L (22-30); Chloride 95 mmol/L (98-107); Glucose 188 mg/dL (74-99); Non-African American GFR(CKD) 20 (>60 ml/min/1.73 sqM); Potassium 4.5 mmol/L (3.5-5.1); Sodium 132 mmol/L (137-145)
[2024-03-25 06:19] LABS: Glucose,Whole Blood 64 mg/dL (70-110)
[2024-03-25 06:46] LABS: Glucose,Whole Blood 92 mg/dL (70-110)
[2024-03-25 07:10] LABS: Basophils # (A) 0.1 k/uL (0-0.2); Basophils % (A) 1 %; Eosinophils % (A) 8 %; HCT 25.3 % (34.0-46.0); Lymphocytes # (A) 2.1 k/uL (1.0-4.8); Lymphocytes % (A) 18 %; MCHC 31.4 g/dL (31.0-37.0); MCV 98.6 fL (80.0-100.0); Macrocytosis Slight; Mean Platelet Volume 7.6; Monocytes # (A) 0.7 k/uL (0-1.0); Monocytes % (A) 6 %; Neutrophils # (A) 7.9 k/uL (1.3-7.7); Neutrophils % (A) 67 %; Platelet Count 424 k/uL (150-450); RBC 2.57 m/uL (3.80-5.40); RDW 15.2 % (11.5-15.5); WBC 11.9 k/uL (3.8-10.6)
[2024-03-25 07:47] LABS: African American GFR (CKD) 19 (>60 ml/min/1.73 sqM); Anion Gap 10 mmol/L; Blood Urea Nitrogen 31 mg/dL (7-17); Calcium 9.3 mg/dL (8.4-10.2); Carbon Dioxide 25 mmol/L (22-30); Chloride 98 mmol/L (98-107); Non-African American GFR(CKD) 16 (>60 ml/min/1.73 sqM); Sodium 133 mmol/L (137-145)
[2024-03-25 07:55] LABS: Glucose 34 mg/dL (74-99)
[2024-03-25 07:59] LABS: Glucose,Whole Blood 73 mg/dL (70-110)
[2024-03-25] MEDS: SODIUM ZIRCONIUM CYCLOSILICATE 10 GM PACKET PO SCH (09:03)
[2024-03-25 12:10] LABS: Glucose,Whole Blood 160 mg/dL (70-110)
--- NOTE | 2024-03-25 13:26 | P.PN ---
Subjective Progress Note Date: 03/25/24 Patient is seen in follow-up for end-stage renal disease. She is maintained on hemodialysis 4 days a week. Hemodynamically stable. Seen while on HD. Vital signs are stable. General: Resting in bed. HEENT: On nasal cannula. LUNGS: No audible rhonchi or wheezes. HEART: Rate and Rhythm are regular. ABDOMEN: Nontender. EXTREMITITES: Trace edema. Objective - Vital Signs Vital signs: Vital Signs Temp 97.9 F 03/25/24 08:00 Pulse 86 03/25/24 08:00 Resp 17 03/25/24 08:21 BP 133/93 03/25/24 08:00 Pulse Ox 100 03/25/24 08:00 FiO2 40 03/16/24 12:03 Intake & Output 03/24/24 03/25/24 03/25/24 18:59 06:59 18:59 Intake Total 680 1020 240 Output Total 240 4100 Balance 440 -3080 240 Weight 74.3 kg Intake: Oral 680 120 240 Hemodialysis 900 Output: Urine 240 Hemodialysis 4100 Other: Voiding Method Bedside Commode Toilet Toilet # Voids 4 - Labs CBC & Chem 7: 03/25/24 06:23 03/25/24 06:23 Labs: Abnormal Lab Results - Last 24 Hours (Table) 03/24/24 03/24/24 03/24/24 Range/Units 09:34 11:13 16:09 WBC (3.8-10.6) k/uL RBC (3.80-5.40) m/uL Hgb (11.4-16.0) gm/dL Hct (34.0-46.0) % Neutrophils # (1.3-7.7) k/uL Eosinophils # (0-0.7) k/uL Sodium (137-145) mmol/L Ch[place] (98-107) mmol/L BUN (7-17) mg/dL Creatinine (0.52-1.04) mg/dL Glucose (74-99) mg/dL POC Glucose (mg/dL) 414 H 268 H (70-110) mg/dL Procalcitonin 1.72 H (0.02-0.09) ng/mL 03/24/24 03/24/24 03/25/24 Range/Units 20:27 20:41 06:17 WBC (3.8-10.6) k/uL RBC (3.80-5.40) m/uL Hgb (11.4-16.0) gm/dL Hct (34.0-46.0) % Neutrophils # (1.3-7.7) k/uL Eosinophils # (0-0.7) k/uL Sodium 132 L (137-145) mmol/L Chloride 95 L (98-107) mmol/L BUN 24 H (7-17) mg/dL Creatinine 2.94 H (0.52-1.04) mg/dL Glucose 188 H (74-99) mg/dL POC Glucose (mg/dL) 226 H 64 L (70-110) mg/dL Procalcitonin (0.02-0.09) ng/mL 03/25/24 03/25/24 Range/Units 06:23 06:23 WBC 11.9 H (3.8-10.6) k/uL RBC 2.57 L (3.80-5.40) m/uL Hgb 8.0 L (11.4-16.0) gm/dL Hct 25.3 L (34.0-46.0) % Neutrophils # 7.9 H (1.3-7.7) k/uL Eosinophils # 1.0 H (0-0.7) k/uL Sodium 133 L (137-145) mmol/L Ch[place]ide (98-107) mmol/L BUN 31 H (7-17) mg/dL Creatinine 3.50 H (0.52-1.04) mg/dL Glucose 34 L* (74-99) mg/dL POC Glucose (mg/dL) (70-110) mg/dL Procalcitonin (0.02-0.09) ng/mL Assessment and Plan Plan: Assessment: 1. End-stage renal disease maintained on hemodialysis Wednesday. 2. Acute hypoxic respiratory failure. On nasal cannula. 3. Volume overload. Improved with ultrafiltration. 4. Acute on chronic diastolic CHF. 5. Diabetes mellitus. 6. Hypertensive urgency. Improved. 7. Anemia of chronic kidney disease maintained on Aranesp. Status post IV iron. Status post blood transfusion this admission. Denies any active bleeding. 8. Chronic kidney disease mineral bone disease maintained on Renvela. Phosphorus level 4.7 dated March 16, 2024. 9. Pyuria with dysuria. On antibiotics. 10. Hyperkalemia secondary to chronic kidney disease. Potassium high at 5.8 this morning. Denies any active bleeding. Hemoglobin higher from yesterday. Plan: Seen while on HD today. Maintain renal diet and 1500 cc fluid restriction. Blood sugar control. [facility].
[2024-03-25 16:50] LABS: Glucose,Whole Blood 463 mg/dL (70-110)
--- NOTE | 2024-03-25 17:57 | P.PN ---
Subjective Progress Note Date: 03/25/24 34-year-old female came in with complaints of shortness of breath and patient is presently on BiPAP.. Patient has history of end-stage renal disease on hemodialysis did not miss any hemodialysis as per the patient patient is found to have severe pulmonary edema and and patient is undergoing hemodialysis with removal of the 3.5 L of fluid. Patient blood pressure is high. Patient had normal ejection fraction does not have any history of heart failure patient does not urinate much. Patient is complaining of pain in the chest because of which cardiology evaluated the patient, EKG did not show any acute ST-T wave changes. 1 set of troponin is within normal limits patient's proBNP is elevated to 22 ,200. Patient has not had any fever chills patient does have leukocytosis 12,600 03/25/2024 Patient seen and evaluated sitting up in bed; just completed hemodialysis Vital signs are reviewed and stable with temperature of 97.9, pulse 86, respirations 17 and blood pressure 133/93 Lab review shows WBC 11.9, hemoglobin 8.2 and platelet count of 424, sodium 133, potassium 5.0, BUNs/creatinine of 31/3.50 Patient remains on hemodialysis 4 times a week; hypoxic respiratory failure resolved with hemodialysis --Remains on [facility] for blood sugar control Objective - Vital Signs Vital signs: Vital Signs Temp 97.9 F 03/25/24 08:00 Pulse 86 03/25/24 08:00 Resp 17 03/25/24 08:21 BP 133/93 03/25/24 08:00 Pulse Ox 100 03/25/24 08:00 FiO2 40 03/16/24 12:03 Intake & Output 03/24/24 03/25/24 03/25/24 18:59 06:59 18:59 Intake Total 680 1020 240 Output Total 240 4100 Balance 440 -3080 240 Weight 74.3 kg Intake: Oral 680 120 240 Hemodialysis 900 Output: Urine 240 Hemodialysis 4100 Other: Voiding Method Bedside Commode Toilet Toilet # Voids 4 - Exam GENERAL: The patient is awake, alert and oriented x3. Well developed, well nourished. Appears older than stated age, currently maintained on 4 L via nasal cannula HEENT: Pupils are round and equally reacting to light. EOMI. No scleral icterus. No conjunctival pallor. Normocephalic, atraumatic. No pharyngeal erythema. No thyromegaly. CARDIOVASCULAR: S1 and S2 present. No murmurs, rubs, or gallops. PULMONARY: Diminished breath sounds bilaterally with some upper bronchial congestion noted with cough on exam and some faint lower expiratory wheezing at the bases Patient has crackles posteriorly bilaterally ABDOMEN: Soft, nontender, nondistended, normoactive bowel sounds. No palpable organomegaly. MUSCULOSKELETAL: No joint swelling or deformity. EXTREMITIES: No cyanosis, clubbing, or pedal edema. NEUROLOGICAL: Gross neurological examination did not reveal any focal deficits. Diffuse weakness SKIN: No rashes. - Labs CBC & Chem 7: 03/25/24 06:23 03/25/24 06:23 Labs: Abnormal Lab Results - Last 24 Hours (Table) 03/24/24 03/24/24 03/24/24 Range/Units 09:34 16:09 20:27 WBC (3.8-10.6) k/uL RBC (3.80-5.40) m/uL Hgb (11.4-16.0) gm/dL Hct (34.0-46.0) % Neutrophils # (1.3-7.7) k/uL Eosinophils # (0-0.7) k/uL Sodium (137-145) mmol/L Chloride (98-107) mmol/L BUN (7-17) mg/dL Creatinine (0.52-1.04) mg/dL Glucose (74-99) mg/dL POC Glucose (mg/dL) 268 H 226 H (70-110) mg/dL Procalcitonin 1.72 H (0.02-0.09) ng/mL 03/24/24 03/25/24 03/25/24 Range/Units 20:41 06:17 06:23 WBC 11.9 H (3.8-10.6) k/uL RBC 2.57 L (3.80-5.40) m/uL Hgb 8.0 L (11.4-16.0) gm/dL Hct 25.3 L (34.0-46.0) % Neutrophils # 7.9 H (1.3-7.7) k/uL Eosinophils # 1.0 H (0-0.7) k/uL Sodium 132 L (137-145) mmol/L Chloride 95 L (98-107) mmol/L BUN 24 H (7-17) mg/dL Creatinine 2.94 H (0.52-1.04) mg/dL Glucose 188 H (74-99) mg/dL POC Glucose (mg/dL) 64 L (70-110) mg/dL Procalcitonin (0.02-0.09) ng/mL 03/25/24 Range/Units 06:23 WBC (3.8-10.6) k/uL RBC (3.80-5.40) m/uL Hgb (11.4-16.0) gm/dL Hct (34.0-46.0) % Neutrophils # (1.3-7.7) k/uL Eosinophils # (0-0.7) k/uL Sodium 133 L (137-145) mmol/L Chloride (98-107) mmol/L BUN 31 H (7-17) mg/dL Creatinine 3.50 H (0.52-1.04) mg/dL Glucose 34 L* (74-99) mg/dL POC Glucose (mg/dL) (70-110) mg/dL Procalcitonin (0.02-0.09) ng/mL Assessment and Plan Assessment: -Acute respiratory failure secondary to pulmonary edema from end-stage renal disease patient is undergoing hemodialysis received IV Lasix in the ER. Continues on oxygen at 3L nasal cannula. -Nausea secondary to uremia and end-stage renal disease continues on antieme tics, continue oral Compazine as needed, nausea has improved. -History of gastroparesis maintained on Reglan on an outpatient basis -Anemia, likely chronic with chronic kidney disease underlying iron deficiency noted. -Leukocytosis with elevated procalcitonin level also has developed acute tracheo bronchitis patient has completed course of azithromycin. -Sinusitis -Chest pressure which appears more musculoskeletal in nature, pain is reproducible with palpation. Patient states this is from coughing. -Hypertension uncontrolled elevated , improved with hemodialysis -Gastroesophageal reflux disease -End-stage renal disease -Seizure disorder -Hypothyroidism -Chronic pain patient continues on oral [place] as well as baclofen, methocarbamol as needed -Depression DVT prophylaxis: Subcutaneous heparin GI prophylaxis Full Code
[2024-03-25 22:08] LABS: Glucose,Whole Blood 346 mg/dL (70-110)
[2024-03-26 02:55] LABS: Glucose,Whole Blood 126 mg/dL (70-110)
[2024-03-26 06:01] LABS: Glucose,Whole Blood 61 mg/dL (70-110)
[2024-03-26 06:21] LABS: Glucose,Whole Blood 67 mg/dL (70-110)
[2024-03-26 06:36] LABS: Glucose,Whole Blood 89 mg/dL (70-110)
[2024-03-26 11:03] LABS: Basophils # (A) 0.11 X 10*3/uL (0.00-0.10); Basophils % (A) 0.9 %; Eosinophils # (A) 1.51 X 10*3/uL (0.04-0.35); HCT 24.5 % (37.2-46.3); HGB 7.8 g/dL (12.0-15.0); Lymphocytes # (A) 2.27 X 10*3/uL (0.90-5.00); MCH 32.4 pg (27.0-32.0); MCHC 31.8 g/dL (32.0-37.0); MCV 101.7 FL (80.0-97.0); Mean Platelet Volume 9.9 FL (9.5-12.2); Monocytes # (A) 0.92 X 10*3/uL (0.20-1.00); Monocytes % (A) 7.3 %; NRBC Per 100 WBC 0 X 10*3/uL (0.00-0.01); Neutrophils # (A) 7.49 X 10*3/uL (1.80-7.70); Neutrophils % (A) 59.4 %; Platelet Count 376 X 10*3/uL (140-440); RBC 2.41 X 10*6/uL (4.10-5.20)
[2024-03-26 11:29] LABS: BUN/Creat Ratio 7.05 Ratio (12.00-20.00); Blood Urea Nitrogen 27.5 mg/dL (9.0-27.0); Calcium 9.2 mg/dL (8.7-10.3); Carbon Dioxide 26.7 mmol/L (21.6-31.8); Chloride 97 mmol/L (96-109); Glucose 94 mg/dL (70-110); Potassium 4.6 mmol/L (3.5-5.5); Sodium 137 mmol/L (135-145)
[2024-03-26 11:45] LABS: Glucose,Whole Blood 63 mg/dL (70-110)
--- NOTE | 2024-03-26 12:05 | P.PN ---
Subjective Progress Note Date: 03/26/24 Patient is seen in follow-up for end-stage renal disease. She is maintained on hemodialysis 4 days a week. Hemodynamically stable. Tolerated HD yesterday. Vital signs are stable. General: Resting in bed. HEENT: On nasal cannula. LUNGS: No audible rhonchi or wheezes. HEART: Rate and Rhythm are regular. ABDOMEN: Nontender. EXTREMITITES: Trace edema. Objective - Vital Signs Vital signs: Vital Signs Temp 98.3 F 03/26/24 07:28 Pulse 85 03/26/24 07:28 Resp 16 03/26/24 07:28 BP 134/86 03/26/24 07:28 Pulse Ox 100 03/26/24 07:28 FiO2 40 03/16/24 12:03 Intake & Output 03/25/24 03/26/24 03/26/24 18:59 06:59 18:59 Intake Total 1660 1000 Output Total 3400 0 Balance -1740 1000 Weight 74.4 kg Intake: Oral 1260 1000 Hemodialysis 400 Output: Urine 0 Hemodialysis 3400 Other: Voiding Method Toilet Toilet - Labs CBC & Chem 7: 03/25/24 06:23 03/25/24 06:23 Labs: Abnormal Lab Results - Last 24 Hours (Table) 03/25/24 03/25/24 03/25/24 Range/Units 12:08 16:47 22:06 POC Glucose (mg/dL) 160 H 463 H 346 H (70-110) mg/dL 03/26/24 03/26/24 03/26/24 Range/Units 02:52 06:00 06:19 POC Glucose (mg/dL) 126 H 61 L 67 L (70-110) mg/dL Assessment and Plan Plan: Assessment: 1. End-stage renal disease maintained on hemodialysis Wednesday. 2. Acute hypoxic respiratory failure. On nasal cannula. 3. Volume overload. Improved with ultrafiltration. 4. Acute on chronic diastolic CHF. 5. Diabetes mellitus. 6. Hypertensive urgency. Improved. 7. Anemia of chronic kidney disease maintained on Aranesp. Status post IV iron. Status post blood transfusion this admission. Denies any active bleeding. 8. Chronic kidney disease mineral bone disease maintained on Renvela. Phosp horus level 4.7 dated March 16, 2024. 9. Pyuria with dysuria. On antibiotics. 10. Hyperkalemia secondary to chronic kidney disease. Potassium high at 5.8 this morning. Denies any active bleeding. Hemoglobin higher from yesterday. Plan: HD again tomorrow. Maintain renal diet and 1500 cc fluid restriction. Blood sugar control. [facility].
[2024-03-26 12:10] LABS: Glucose,Whole Blood 83 mg/dL (70-110)
[2024-03-26 15:59] LABS: Glucose,Whole Blood 371 mg/dL (70-110)
[2024-03-26 16:52] LABS: Glucose,Whole Blood 425 mg/dL (70-110)
--- NOTE | 2024-03-26 19:15 | P.PN ---
Subjective Progress Note Date: 03/26/24 34-year-old female came in with complaints of shortness of breath and patient is presently on BiPAP.. Patient has history of end-stage renal disease on hemodialysis did not miss any hemodialysis as per the patient patient is found to have severe pulmonary edema and and patient is undergoing hemodialysis with removal of the 3.5 L of fluid. Patient blood pressure is high. Patient had normal ejection fraction does not have any history of heart failure patient does not urinate much. Patient is complaining of pain in the chest because of which cardiology evaluated the patient, EKG did not show any acute ST-T wave changes. 1 set of troponin is within normal limits patient's proBNP is elevated to 22 ,200. Patient has not had any fever chills patient does have leukocytosis 12,600 03/25/2024 Patient seen and evaluated sitting up in bed; just completed hemodialysis Vital signs are reviewed and stable with temperature of 97.9, pulse 86, respirations 17 and blood pressure 133/93 Lab review shows WBC 11.9, hemoglobin 8.2 and platelet count of 424, sodium 133, potassium 5.0, BUNs/creatinine of 31/3.50 Patient remains on hemodialysis 4 times a week; hypoxic respiratory failure resolved with hemodialysis --Remains on [facility] for blood sugar control 03/26/2024 Patient is seen and evaluated in room at bedside; resting comfortably; no complaint of shortness of breath Vital signs are reviewed and temperature of 98.3, pulse 78, respiration 18 and blood pressure of 134/86 with O2 saturation 98% on 3 L Blood work reveals WBC of 12.6, hemoglobin of 7.8 and platelet count of 376, sodium 137, potassium 4.6, BUNs/creatinine of 27.5/3.9 Patient undergoes hemodialysis Wednesday, Wednesday, and Wednesday; nephrology planning hemodialysis tomorrow morning -Patient remains on 1500 cc fluid restriction Objective - Vital Signs Vital signs: Vital Signs Temp 98.3 F 03/26/24 07:28 Pulse 85 03/26/24 07:28 Resp 16 03/26/24 07:28 BP 134/86 03/26/24 07:28 Pulse Ox 100 03/26/24 07:28 FiO2 40 03/16/24 12:03 Intake & Output 05/11/24 05/12/24 05/12/24 18:59 06:59 18:59 Intake Total 1660 1000 Output Total 3400 0 Balance -1740 1000 Weight 74.4 kg Intake: Oral 1260 1000 Hemodialysis 400 Output: Urine 0 Hemodialysis 3400 Other: Voiding Method Toilet Toilet Toilet - Exam GENERAL: The patient is awake, alert and oriented x3. Well developed, well nourished. Appears older than stated age, currently maintained on 4 L via nasal cannula HEENT: Pupils are round and equally reacting to light. EOMI. No scleral icterus. No conjunctival pallor. Normocephalic, atraumatic. No pharyngeal erythema. No thyromegaly. CARDIOVASCULAR: S1 and S2 present. No murmurs, rubs, or gallops. PULMONARY: Diminished breath sounds bilaterally with some upper bronchial congestion noted with cough on exam and some faint lower expiratory wheezing at the bases Patient has crackles posteriorly bilaterally ABDOMEN: Soft, nontender, nondistended, normoactive bowel sounds. No palpable organomegaly. MUSCULOSKELETAL: No joint swelling or deformity. EXTREMITIES: No cyanosis, clubbing, or pedal edema. NEUROLOGICAL: Gross neurological examination did not reveal any focal deficits. Diffuse weakness SKIN: No rashes. - Labs CBC & Chem 7: 03/26/24 06:44 03/26/24 06:44 Labs: Abnormal Lab Results - Last 24 Hours (Table) 03/25/24 03/25/24 03/26/24 Range/Units 16:47 22:06 02:52 WBC (4.50-10.00) X 10*3/uL RBC (4.10-5.20) X 10*6/uL Hgb (12.0-15.0) g/dL Hct (37.2-46.3) % MCV (80.0-97.0) FL MCH (27.0-32.0) pg MCHC (32.0-37.0) g/dL RDW (11.5-14.5) % Immature Gran # (0.00-0.04) X 10*3/uL Eosinophils # (0.04-0.35) X 10*3/uL Basophils # (0.00-0.10) X 10*3/uL Anion Gap (4.00-12.00) mmol/L BUN (9.0-27.0) mg/dL Creatinine (0.6-1.5) mg/dL Est GFR (CKD-EPI) (>=60) BUN/Creatinine Ratio (12.00-20.00) Ratio POC Glucose (mg/dL) 463 H 346 H 126 H (70-110) mg/dL 03/26/24 03/26/24 03/26/24 Range/Units 06:00 06:19 06:44 WBC 12.60 H (4.50-10.00) X 10*3/uL RBC 2.41 L (4.10-5.20) X 10*6/uL Hgb 7.8 L (12.0-15.0) g/dL Hct 24.5 L (37.2-46.3) % MCV 101.7 H (80.0-97.0) FL MCH 32.4 H (27.0-32.0) pg MCHC 31.8 L (32.0-37.0) g/dL RDW 15.0 H (11.5-14.5) % Immature Gran # 0.30 H (0.00-0.04) X 10*3/uL Eosinophils # 1.51 H (0.04-0.35) X 10*3/uL Basophils # 0.11 H (0.00-0.10) X 10*3/uL Anion Gap (4.00-12.00) mmol/L BUN (9.0-27.0) mg/dL Creatinine (0.6-1.5) mg/dL Est GFR (CKD-EPI) (>=60) BUN/Creatinine Ratio (12.00-20.00) Ratio POC Glucose (mg/dL) 61 L 67 L (70-110) mg/dL 24 03/26/24 Range/Units 06:44 11:43 WBC (4.50-10.00) X 10*3/uL RBC (4.10-5.20) X 10*6/uL Hgb (12.0-15.0) g/dL Hct (37.2-46.3) % MCV (80.0-97.0) FL MCH (27.0-32.0) pg MCHC (32.0-37.0) g/dL RDW (11.5-14.5) % Immature Gran # (0.00-0.04) X 10*3/uL Eosinophils # (0.04-0.35) X 10*3/uL Basophils # (0.00-0.10) X 10*3/uL Anion Gap 13.30 H (4.00-12.00) mmol/L BUN 27.5 H (9.0-27.0) mg/dL Creatinine 3.9 H (0.6-1.5) mg/dL Est GFR (CKD-EPI) 15 L (>=60) BUN/Creatinine Ratio 7.05 L (12.00-20.00) Ratio POC Glucose (mg/dL) 63 L (70-110) mg/dL Assessment and Plan Assessment: -Acute respiratory failure secondary to pulmonary edema from end-stage renal disease patient is undergoing hemodialysis received IV Lasix in the ER. Continues on oxygen at 3L nasal cannula. -Nausea secondary to uremia and end-stage renal disease continues on antiemetics, continue oral Compazine as needed, nausea has improved. -History of gastroparesis maintained on Reglan on an outpatient basis -Anemia, likely chronic with chronic kidney disease underlying iron deficiency noted. -Leukocytosis with elevated procalcitonin level also has developed acute tracheobronchitis patient has completed course of azithromycin. -Sinusitis -Chest pressure which appears more musculoskeletal in nature, pain is reproducible with palpation. Patient states this is from coughing. -Hypertension uncontrolled elevated , improved with hemodialysis -Gastroesophageal reflux disease -End-stage renal disease -Seizure disorder -Hypothyroidism -Chronic pain patient continues on oral [place] as well as baclofen, methocarbamol as needed -Depression DVT prophylaxis: Subcutaneous heparin GI prophylaxis Full Code
[2024-03-26 21:25] LABS: Glucose,Whole Blood 259 mg/dL (70-110)
[2024-03-27 01:52] LABS: Glucose,Whole Blood 100 mg/dL (70-110)
[2024-03-27 04:56] LABS: Glucose,Whole Blood 35 mg/dL (70-110)
[2024-03-27 05:30] LABS: Glucose,Whole Blood 124 mg/dL (70-110)
--- NOTE | 2024-03-27 07:36 | XR ---
EXAMINATION TYPE: XR chest 1V DATE OF EXAM: 03/27/2024 COMPARISON: 03/17/2024 HISTORY: 34-year-old female shortness of breath TECHNIQUE: Single frontal view of the chest is obtained. FINDINGS: Right-sided double-lumen hemodialysis catheter with tips in the right atrium. Heart mildly enlarged. Diffuse interstitial and bilateral perihilar opacities are noted. The previous confluent ai rspace disease has resolved. No pleural effusion. IMPRESSION: Improvement in the previous confluent areas of pulmonary edema. Interstitial pulmonary e ana remains.
[2024-03-27 09:04] LABS: Basophils # (A) 0.15 X 10*3/uL (0.00-0.10); Basophils % (A) 1.3 %; Eosinophils # (A) 1.21 X 10*3/uL (0.04-0.35); Eosinophils % (A) 10.6 %; HCT 23.8 % (37.2-46.3); HGB 7.6 g/dL (12.0-15.0); Lymphocytes % (A) 17.5 %; MCH 31.8 pg (27.0-32.0); MCHC 31.9 g/dL (32.0-37.0); MCV 99.6 FL (80.0-97.0); Mean Platelet Volume 9.9 FL (9.5-12.2); Monocytes # (A) 0.73 X 10*3/uL (0.20-1.00); Monocytes % (A) 6.4 %; NRBC Per 100 WBC 0 X 10*3/uL (0.00-0.01); Neutrophils # (A) 7.06 X 10*3/uL (1.80-7.70); Platelet Count 372 X 10*3/uL (140-440); RBC 2.39 X 10*6/uL (4.10-5.20); RDW 15.5 % (11.5-14.5)
[2024-03-27 09:33] LABS: BUN/Creat Ratio 9.09 Ratio (12.00-20.00); Blood Urea Nitrogen 48.2 mg/dL (9.0-27.0); Calcium 8.7 mg/dL (8.7-10.3); Carbon Dioxide 23.2 mmol/L (21.6-31.8); Chloride 96 mmol/L (96-109); Glucose 100 mg/dL (70-110); Potassium 5.2 mmol/L (3.5-5.5); Sodium 137 mmol/L (135-145)
[2024-03-27] MEDS: INSULIN DETEMIR (LEVEMIR) 100 UNIT/ML SYR SQ SCH ×2 (12:00→21:14)
[2024-03-27 12:04] LABS: Glucose,Whole Blood 175 mg/dL (70-110)
--- NOTE | 2024-03-27 12:23 | P.PN ---
Subjective patient is seen for follow-up for end-stage renal disease. Admitted with shortness of breath and fluid overload. no complaints of shortness of breath. Patient is seen on hemodialysis. Tolerating treatment well. UF will be increased to 3-4 L as tolerated. Objective - Vital Signs Vital signs: Vital Signs Temp 97.9 F 03/27/24 07:20 Pulse 81 03/27/24 08:00 Resp 16 03/27/24 08:00 BP 126/72 03/27/24 07:20 Pulse Ox 95 03/27/24 08:47 FiO2 40 03/16/24 12:03 Intake & Output 03/26/24 03/27/24 03/27/24 18:59 06:59 18:59 Intake Total 500 Balance 500 Weight 74.4 kg Intake: Oral 500 Other: Voiding Method Toilet Toilet - Exam patient is awake. comfortable Examination of the heart S1 and S2 Examination of the lungs bilateral breath sounds are heard Abdomen is soft nontender Examination of lower extremities shows trace edema [employer]P exam grossly intact - Labs CBC & Chem 7: 03/27/24 06:10 03/27/24 06:10 Labs: Abnormal Lab Results - Last 24 Hours (Table) 03/26/24 03/26/24 03/26/24 Range/Units 15:58 16:51 21:21 WBC (4.50-10.00) X 10*3/uL RBC (4.10-5.20) X 10*6/uL Hgb (12.0-15.0) g/dL Hct (37.2-46.3) % MCV (80.0-97.0) FL MCHC (32.0-37.0) g/dL RDW (11.5-14.5) % Immature Gran # (0.00-0.04) X 10*3/uL Eosinophils # (0.04-0.35) X 10*3/uL Basophils # (0.00-0.10) X 10*3/uL Anion Gap (4.00-12.00) mmol/L BUN (9.0-27.0) mg/dL Creatinine (0.6-1.5) mg/dL Est GFR (CKD-EPI) (>=60) BUN/Creatinine Ratio (12.00-20.00) Ratio POC Glucose (mg/dL) 371 H 425 H 259 H (70-110) mg/dL Procalcitonin (0.02-0.09) ng/mL 03/27/24 03/27/24 03/27/24 Range/Units 04:54 05:18 06:10 WBC 11.40 H (4.50-10.00) X 10*3/uL RBC 2.39 L (4.10-5.20) X 10*6/uL Hgb 7.6 L (12.0-15.0) g/dL Hct 23.8 L (37.2-46.3) % MCV 99.6 H (80.0-97.0) FL MCHC 31.9 L (32.0-37.0) g/dL RDW 15.5 H (11.5-14.5) % Immature Gran # 0.25 H (0.00-0.04) X 10*3/uL Eosinophils # 1.21 H (0.04-0.35) X 10*3/uL Basophils # 0.15 H (0.00-0.10) X 10*3/uL Anion Gap (4.00-12.00) mmol/L BUN (9.0-27.0) mg/dL Creatinine (0.6-1.5) mg/dL Est GFR (CKD-EPI) (>=60) BUN/Creatinine Ratio (12.00-20.00) Ratio POC Glucose (mg/dL) 35 L 124 H (70-110) mg/dL Procalcitonin (0.02-0.09) ng/mL 03/27/24 03/27/24 03/27/24 Range/Units 06:10 06:10 12:00 WBC (4.50-10.00) X 10*3/uL RBC (4.10-5.20) X 10*6/uL Hgb (12.0-15.0) g/dL Hct (37.2-46.3) % MCV (80.0-97.0) FL MCHC (32.0-37.0) g/dL RDW (11.5-14.5) % Immature Gran # (0.00-0.04) X 10*3/uL Eosinophils # (0.04-0.35) X 10*3/uL Basophils # (0.00-0.10) X 10*3/uL Anion Gap 17.80 H (4.00-12.00) mmol/L BUN 48.2 H (9.0-27.0) mg/dL Creatinine 5.3 H (0.6-1.5) mg/dL Est GFR (CKD-EPI) 10 L (>=60) BUN/Creatinine Ratio 9.09 L (12.00-20.00) Ratio POC Glucose (mg/dL) 175 H (70-110) mg/dL Procalcitonin 0.83 H (0.02-0.09) ng/mL Assessment and Plan Assessment: 1. End-stage renal disease on hemodialysis on a Wednesday schedule and receiving treatments 4-5 times a week based on volume status. 2. Volume overload. Patient has been maintained on hemodialysis 4-5 times a week as outpatient. Fluid restriction has been discussed on multiple occasions. 3. Acute hypoxic respiratory failure secondary to CHF and volume overload 4. Hypertension partly volume sensitive, improved with hemodialysis and ultrafi ltration 5. CK D mineral bone disorder Plan: hemodialysis today and repeat in a.m. Increase UF today continue Aranesp continue Renvela with meals
--- NOTE | 2024-03-27 13:11 | P.PN ---
Subjective 34-year-old female came in with complaints of shortness of breath and patient is presently on BiPAP.. Patient has history of end-stage renal disease on hemodialysis did not miss any hemodialysis as per the patient patient is found to have severe pulmonary edema and and patient is undergoing hemodialysis with removal of the 3.5 L of fluid. Patient blood pressure is high. Patient had normal ejection fraction does not have any history of heart failure patient does not urinate much. Patient is complaining of pain in the chest because of which cardiology evaluated the patient, EKG did not show any acute ST-T wave changes. 1 set of troponin is within normal limits patient's proBNP is elevated to 22,200. Patient has not had any fever chills patient does have leukocytosis 12,600 03/25/2024 Patient seen and evaluated sitting up in bed; just completed hemodialysis Vital signs are reviewed and stable with temperature of 97.9, pulse 86, respirations 17 and blood pressure 133/93 Lab review shows WBC 11.9, hemoglobin 8.2 and platelet count of 424, sodium 133, potassium 5.0, BUNs/creatinine of 31/3.50 Patient remains on hemodialysis 4 times a week; hypoxic respiratory failure resolved with hemodialysis --Remains on [facility] for blood sugar control 03/26/2024 Patient is seen and evaluated in room at bedside; resting comfortably; no complaint of shortness of breath Vital signs are reviewed and temperature of 98.3, pulse 78, respiration 18 and blood pressure of 134/86 with O2 saturation 98% on 3 L Blood work reveals WBC of 12.6, hemoglobin of 7.8 and platelet count of 376, sodium 137, potassium 4.6, BUNs/creatinine of 27.5/3.9 Patient undergoes hemodialysis Wednesday, Wednesday, and Wednesday; nephrology planning hemodialysis tomorrow morning -Patient remains on 1500 cc fluid restriction 03/27/2024 This is a pleasant 34 years old female who presents initially because of shortness of breath from [facility], she was wheezing and hypoxic and she had to be placed on CPAP. Patient was found to be fluid overloaded and she underwent hemodialysis as she is a known case of end-stage renal disease on hemodialysis as an outpatient and her breathing is improving. Today is awake and alert, she is breathing fine on 3 L oxygen was saturating 95 to 99% with no dyspnea or chest pain or coughing. She is getting hemodialysis today and tomorrow per loss mitigation specialist She has also hypoglycemia with a glucose dropped to 35 overnight, at home she was taking Lantus 25 units daily, here she was taking 15 units in the morning and 15 units at night, glucose was 35 contact center specialist, currently glucose improved. Patient is asymptomatic. Will switch her Levemir to 20 units daily and 5 units at bedtime. She is complaining from mild ear pain and migraine headache which is controlled. Patient hemoglobin 7.8. Blood pressure is borderline but this morning is better with systolic around 120. Procalcitonin is improving 15 down to 1.7 and 0.8 today. Patient is not on antibiotic Repeat chest x-ray: Improved aeration and fluid overload status Possible discharge in 24 to 48 hours if she keeps improving Objective - Vital Signs Vital signs: Vital Signs Temp 97.9 F 03/27/24 07:20 Pulse 81 03/27/24 08:00 Resp 16 03/27/24 08:00 BP 126/72 03/27/24 07:20 Pulse Ox 95 03/27/24 08:47 FiO2 40 03/16/24 12:03 Intake & Output 03/26/24 03/27/24 03/27/24 18:59 06:59 18:59 Intake Total 500 Balance 500 Weight 74.4 kg Intake: Oral 500 Other: Voiding Method Toilet Toilet - Exam GENERAL: The patient is alert and oriented x3, not in any acute distress. Well developed, well nourished. HEENT: Pupils are round and equally reacting to light. EOMI. No scleral icterus. No conjunctival pallor. Normocephalic, atraumatic. No pharyngeal erythema. No thyromegaly. CARDIOVASCULAR: S1 and S2 present. No murmurs, rubs, or gallops. PULMONARY: Chest is clear to auscultation, no wheezing , no crackles. ABDOMEN: Soft, nontender, nondistended, normoactive bowel sounds. No palpable organomegaly. MUSCULOSKELETAL: No joint swelling or deformity. EXTREMITIES: No cyanosis, clubbing, or pedal edema. NEUROLOGICAL: Gross neurological examination did not reveal any focal deficits. SKIN: No rashes. no petechiae. - Labs CBC & Chem 7: 03/27/24 06:10 03/27/24 06:10 Labs: Abnormal Lab Results - Last 24 Hours (Table) 05/12/24 05/12/24 05/12/24 Range/Units 15:58 16:51 21:21 WBC (4.50-10.00) X 10*3/uL RBC (4.10-5.20) X 10*6/uL Hgb (12.0-15.0) g/dL Hct (37.2-46.3) % MCV (80.0-97.0) FL MCHC (32.0-37.0) g/dL RDW (11.5-14.5) % Immature Gran # (0.00-0.04) X 10*3/uL Eosinophils # (0.04-0.35) X 10*3/uL Basophils # (0.00-0.10) X 10*3/uL Anion Gap (4.00-12.00) mmol/L BUN (9.0-27.0) mg/dL Creatinine (0.6-1.5) mg/dL Est GFR (CKD-EPI) (>=60) BUN/Creatinine Ratio (12.00-20.00) Ratio POC Glucose (mg/dL) 371 H 425 H 259 H (70-110) mg/dL Procalcitonin (0.02-0.09) ng/mL 03/27/24 03/27/24 03/27/24 Range/Units 04:54 05:18 06:10 WBC 11.40 H (4.50-10.00) X 10*3/uL RBC 2.39 L (4.10-5.20) X 10*6/uL Hgb 7.6 L (12.0-15.0) g/dL Hct 23.8 L (37.2-46.3) % MCV 99.6 H (80.0-97.0) FL MCHC 31.9 L (32.0-37.0) g/dL RDW 15.5 H (11.5-14.5) % Immature Gran # 0.25 H (0.00-0.04) X 10*3/uL Eosinophils # 1.21 H (0.04-0.35) X 10*3/uL Basophils # 0.15 H (0.00-0.10) X 10*3/uL Anion Gap (4.00-12.00) mmol/L BUN (9.0-27.0) mg/dL Creatinine (0.6-1.5) mg/dL Est GFR (CKD-EPI) (>=60) BUN/Creatinine Ratio (12.00-20.00) Ratio POC Glucose (mg/dL) 35 L 124 H (70-110) mg/dL Procalcitonin (0.02-0.09) ng/mL 03/27/24 03/27/24 03/27/24 Range/Units 06:10 06:10 12:00 WBC (4.50-10.00) X 10*3/uL RBC (4.10-5.20) X 10*6/uL Hgb (12.0-15.0) g/dL Hct (37.2-46.3) % MCV (80.0-97.0) FL MCHC (32.0-37.0) g/dL RDW (11.5-14.5) % Immature Gran # (0.00-0.04) X 10*3/uL Eosinophils # (0.04-0.35) X 10*3/uL Basophils # (0.00-0.10) X 10*3/uL Anion Gap 17.80 H (4.00-12.00) mmol/L BUN 48.2 H (9.0-27.0) mg/dL Creatinine 5.3 H (0.6-1.5) mg/dL Est GFR (CKD-EPI) 10 L (>=60) BUN/Creatinine Ratio 9.09 L (12.00-20.00) Ratio POC Glucose (mg/dL) 175 H (70-110) mg/dL Procalcitonin 0.83 H (0.02-0.09) ng/mL Assessment and Plan Assessment: -Acute respiratory failure secondary to pulmonary edema from end-stage renal disease patient is undergoing hemodialysis received IV Lasix in the ER. Continues on oxygen at 3L nasal cannula. -Nausea secondary to uremia and end-stage renal disease continues on antiemetics, continue oral Compazine as needed, nausea has improved. -History of gastroparesis maintained on Reglan on an outpatient basis -Anemia, likely chronic with chronic kidney disease underlying iron deficiency noted. FOBT Is negative , f/u as outpatient -Leukocytosis with elevated procalcitonin level also has developed acute tracheobronchitis patient has completed course of azithromycin.procalcitonin is trending down , no more symptoms, she is off antibiotics and doing well, more antibiotic would have more harm than benefits as pt is afebrile and asymptomatic -Sinusitis , f/u with ENT outpatient -Chest pressure which appears more musculoskeletal in nature, pain is reproducible with palpation. Patient states this is from coughing. resolved no chest pain today -Hypertension uncontrolled elevated , improved with hemodialysis -Gastroesophageal reflux disease -End-stage renal disease -Seizure disorder -Hypothyroidism -Chronic pain patient continues on oral [place] as well as baclofen, methocarbamol as needed -Depression DVT prophylaxis: Subcutaneous heparin GI prophylaxis Full Code possible dc in 24-48 hours
[2024-03-27 16:30] LABS: Glucose,Whole Blood 162 mg/dL (70-110)
[2024-03-27 20:02] LABS: Glucose,Whole Blood 194 mg/dL (70-110)
[2024-03-27] MEDS ORDERED: INSULIN DETEMIR (LEVEMIR) 100 UNIT/ML SYR SQ SCH (21:00)
[2024-03-28 02:04] LABS: Glucose,Whole Blood 70 mg/dL (70-110)
[2024-03-28 06:15] LABS: Glucose,Whole Blood 69 mg/dL (70-110)
[2024-03-28 11:13] LABS: Glucose,Whole Blood 349 mg/dL (70-110)
--- NOTE | 2024-03-28 12:33 | P.PN ---
Subjective patient is seen for follow-up for end-stage renal disease. Admitted with shortness of breath and fluid overload. no complaints of shortness of breath. currently being dialyzed 4 times a week. status post hemodialysis yesterday with UF of 3.5 L. Objective - Vital Signs Vital signs: Vital Signs Temp 98.2 F 03/28/24 07:09 Pulse 90 03/28/24 09:14 Resp 17 03/28/24 07:09 BP 143/77 03/28/24 07:09 Pulse Ox 100 03/28/24 09:03 FiO2 40 03/16/24 12:03 Intake & Output 03/27/24 03/28/24 03/28/24 18:59 06:59 18:59 Intake Total 1150 400 Output Total 3500 Balance -2350 400 Weight 93 kg Intake: Oral 650 400 Hemodialysis 500 Output: Hemodialysis 3500 Other: Voiding Method Toilet Toilet Toilet - Exam patient is awake. comfortable Examination of the heart S1 and S2 Examination of the lungs bilateral breath sounds are heard Abdomen is soft nontender Examination of lower extremities shows trace edema DISPATCHER MOTOR VEHICLE exam grossly intact - Labs CBC & Chem 7: 03/27/24 06:10 03/27/24 06:10 Labs: Abnormal Lab Results - Last 24 Hours (Table) 03/27/24 03/27/24 03/28/24 Range/Units 16:28 20:01 06:14 POC Glucose (mg/dL) 162 H 194 H 69 L (70-110) mg/dL 03/28/24 Range/Units 11:10 POC Glucose (mg/dL) 349 H (70-110) mg/dL Assessment and Plan Assessment: 1. End-stage renal disease on hemodialysis on a Wednesday schedule and receiving treatments 4-5 times a week based on volume status. 2. Volume overload. Patient has been maintained on hemodialysis 4-5 times a week as outpatient. Fluid restriction has been discussed on multiple occasions. 3. Acute hypoxic respiratory failure secondary to CHF and volume overload 4. Hypertension partly volume sensitive, improved with hemodialysis and ultrafiltration 5. CK D mineral bone disorder Plan: hemodialysis today continue Aranesp continue Renvela with meals
[2024-03-28] MEDS ORDERED: METOCLOPRAMIDE 5 MG/ML 2 ML VIAL IVP PRN (14:24)
[2024-03-28 16:42] LABS: Glucose,Whole Blood 158 mg/dL (70-110)
[2024-03-28 20:21] LABS: Glucose,Whole Blood 306 mg/dL (70-110)
--- NOTE | 2024-03-28 23:33 | P.PN ---
Subjective 34-year-old female came in with complaints of shortness of breath and patient is presently on BiPAP.. Patient has history of end-stage renal disease on hemodialysis did not miss any hemodialysis as per the patient patient is found to have severe pulmonary edema and and patient is undergoing hemodialysis with removal of the 3.5 L of fluid. Patient blood pressure is high. Patient had normal ejection fraction does not have any history of heart failure patient does not urinate much. Patient is complaining of pain in the chest because of which cardiology evaluated the patient, EKG did not show any acute ST-T wave changes. 1 set of troponin is within normal limits patient's proBNP is elevated to 22,200. Patient has not had any fever chills patient does have leukocytosis 12,600 03/25/2024 Patient seen and evaluated sitting up in bed; just completed hemodialysis Vital signs are reviewed and stable with temperature of 97.9, pulse 86, respirations 17 and blood pressure 133/93 Lab review shows WBC 11.9, hemoglobin 8.2 and platelet count of 424, sodium 133, potassium 5.0, BUNs/creatinine of 31/3.50 Patient remains on hemodialysis 4 times a week; hypoxic respiratory failure resolved with hemodialysis --Remains on [facility] for blood sugar control 03/26/2024 Patient is seen and evaluated in room at bedside; resting comfortably; no complaint of shortness of breath Vital signs are reviewed and temperature of 98.3, pulse 78, respiration 18 and blood pressure of 134/86 with O2 saturation 98% on 3 L Blood work reveals WBC of 12.6, hemoglobin of 7.8 and platelet count of 376, sodium 137, potassium 4.6, BUNs/creatinine of 27.5/3.9 Patient undergoes hemodialysis Wednesday, Wednesday, and Wednesday; nephrology planning hemodialysis tomorrow morning -Patient remains on 1500 cc fluid restriction 03/27/2024 This is a pleasant 34 years old female who presents initially because of shortness of breath from [facility], she was wheezing and hypoxic and she had to be placed on CPAP. Patient was found to be fluid overloaded and she underwent hemodialysis as she is a known case of end-stage renal disease on hemodialysis as an outpatient and her breathing is improving. Today is awake and alert, she is breathing fine on 3 L oxygen was saturating 95 to 99% with no dyspnea or chest pain or coughing. She is getting hemodialysis today and tomorrow per teaching assistant She has also hypoglycemia with a glucose dropped to 35 overnight, at home she was taking Lantus 25 units daily, here she was taking 15 units in the morning and 15 units at night, glucose was 35 traffic or system dispatcher, currently glucose improved. Patient is asymptomatic. Will switch her Levemir to 20 units daily and 5 units at bedtime. She is complaining from mild ear pain and migraine headache which is controlled. Patient hemoglobin 7.8. Blood pressure is borderline but this morning is better with systolic around 120. Procalcitonin is improving 15 down to 1.7 and 0.8 today. Patient is not on antibiotic Repeat chest x-ray: Improved aeration and fluid overload status Possible discharge in 24 to 48 hours if she keeps improving 03/28/2024 Patient still complaining from nausea, she tolerates diet well though about 75 to 100%. Reglan as needed is added No significant abdominal pain or tenderness Patient complains from mild right ear pain x 7 days which might benefit from ENT evaluation pulm consulted She is currently breathing easily. Hypoxia and tachypnea improved. Cardiology is already signed off the case. Continue with hemodialysis per nephrology team Objective - Vital Signs Vital signs: Vital Signs Temp 97.6 F 03/28/24 13:38 Pulse 96 03/28/24 13:38 Resp 17 03/28/24 13:38 BP 138/77 03/28/24 13:38 Pulse Ox 100 03/28/24 13:38 FiO2 40 03/16/24 12:03 Intake & Output 03/27/24 03/28/24 03/28/24 18:59 06:59 18:59 Intake Total 1150 400 Output Total 3500 Balance -2350 400 Weight 93 kg Intake: Oral 650 400 Hemodialysis 500 Output: Hemodialysis 3500 Other: Voiding Method Toilet Toilet Toilet - Exam GENERAL: The patient is alert and oriented x3, not in any acute distress. Well developed, well nourished. HEENT: Pupils are round and equally reacting to light. EOMI. No scleral icterus. No conjunctival pallor. Normocephalic, atraumatic. No pharyngeal erythema. No thyromegaly. CARDIOVASCULAR: S1 and S2 present. No murmurs, rubs, or gallops. PULMONARY: Chest is clear to auscultation, no wheezing , no crackles. ABDOMEN: Soft, nontender, nondistended, normoactive bowel sounds. No palpable organomegaly. MUSCULOSKELETAL: No joint swelling or deformity. EXTREMITIES: No cyanosis, clubbing, or pedal edema. NEUROLOGICAL: Gross neurological examination did not reveal any focal deficits. SKIN: No rashes. no petechiae. - Labs CBC & Chem 7: 03/27/24 06:10 03/27/24 06:10 Labs: Abnormal Lab Results - Last 24 Hours (Table) 03/27/24 03/27/24 03/28/24 Range/Units 16:28 20:01 06:14 POC Glucose (mg/dL) 162 H 194 H 69 L (70-110) mg/dL 03/28/24 Range/Units 11:10 POC Glucose (mg/dL) 349 H (70-110) mg/dL Assessment and Plan Assessment: -Acute respiratory failure secondary to pulmonary edema from end-stage renal disease patient is undergoing hemodialysis received IV Lasix in the ER. Continues on oxygen at 3L nasal cannula. -Nausea secondary to uremia and end-stage renal disease continues on ant iemetics, continue oral Compazine as needed, nausea has improved. -History of gastroparesis maintained on Reglan on an outpatient basis -Anemia, likely chronic with chronic kidney disease underlying iron deficiency noted. FOBT Is negative , f/u as outpatient -Leukocytosis with elevated procalcitonin level also has developed acute tracheobronchitis patient has completed course of azithromycin.procalcitonin is trending down , no more symptoms, she is off antibiotics and doing well, more antibiotic would have more harm than benefits as pt is afebrile and asymptomatic -Sinusitis , f/u with ENT outpatient -Chest pressure which appears more musculoskeletal in nature, pain is reproducible with palpation. Patient states this is from coughing. resolved no chest pain today -Hypertension uncontrolled elevated , improved with hemodialysis -Gastroesophageal reflux disease -End-stage renal disease -Seizure disorder -Hypothyroidism -Chronic pain patient continues on oral [place] as well as baclofen, methocarbamol as needed -Depression DVT prophylaxis: Subcutaneous heparin GI prophylaxis Full Code possible dc in 24-48 hours
[2024-03-29 01:45] LABS: Glucose,Whole Blood 463 mg/dL (70-110)
[2024-03-29] MEDS: INSULIN ASPART (NovoLOG) 100 UNIT/ML VIAL SQ ONE (02:09)
[2024-03-29 03:46] LABS: Glucose,Whole Blood 373 mg/dL (70-110)
[2024-03-29 05:57] LABS: Glucose,Whole Blood 246 mg/dL (70-110)
[2024-03-29] MEDS: INSULIN DETEMIR (LEVEMIR) 100 UNIT/ML SYR SQ SCH (06:32)
[2024-03-29 11:35] LABS: Glucose,Whole Blood 109 mg/dL (70-110)
[2024-03-29] MEDS: PROCHLORPERAZINE 5 MG TAB PO PRN (12:38)
[2024-03-29 16:35] LABS: Glucose,Whole Blood 131 mg/dL (70-110)
--- NOTE | 2024-03-29 19:11 | P.PN ---
Subjective patient is seen for follow-up for end-stage renal disease. Admitted with shortness of breath and fluid overload. no complaints of shortness of breath. currently being dialyzed 4 times a week. Continues to complain of nausea Objective - Vital Signs Vital signs: Vital Signs Temp 98.1 F 03/29/24 13:39 Pulse 76 03/29/24 16:44 Resp 20 03/29/24 13:39 BP 113/69 03/29/24 16:44 Pulse Ox 95 03/29/24 13:39 FiO2 40 03/16/24 12:03 Intake & Output 03/29/24 03/29/24 03/30/24 06:59 18:59 06:59 Intake Total 360 Balance 360 Weight 72.1 kg Intake: Oral 360 Other: Voiding Method Toilet # Voids 1 3 - Exam patient is awake. comfortable Examination of the heart S1 and S2 Examination of the lungs bilateral breath sounds are heard Abdomen is soft nontender Examination of lower extremities shows trace edema CLIENT SERVICE CONSULTANT exam grossly intact - Labs CBC & Chem 7: 03/27/24 06:10 03/27/24 06:10 Labs: Abnormal Lab Results - Last 24 Hours (Table) 03/28/24 03/29/24 03/29/24 Range/Units 20:20 01:44 03:44 POC Glucose (mg/dL) 306 H 463 H 373 H (70-110) mg/dL 03/29/24 03/29/24 Range/Units 05:55 16:34 POC Glucose (mg/dL) 246 H 131 H (70-110) mg/dL Assessment and Plan Assessment: 1. End-stage renal disease on hemodialysis on a Wednesday schedule and receiving treatments 4-5 times a week based on volume status. 2. Volume overload. Patient has been maintained on hemodialysis 4-5 times a week as outpatient. Fluid restriction has been discussed on multiple occasions. 3. Acute hypoxic respiratory failure secondary to CHF and volume overload 4. Hypertension partly volume sensitive, improved with hemodialysis and ultrafiltration 5. CK D mineral bone disorder Plan: hemodialysis in a.m. Salt and fluid restriction continue Aranesp continue Renvela with meals
[2024-03-29 21:02] LABS: Glucose,Whole Blood 290 mg/dL (70-110)
--- NOTE | 2024-03-29 21:58 | P.PN ---
Subjective 34-year-old female came in with complaints of shortness of breath and patient is presently on BiPAP.. Patient has history of end-stage renal disease on hemodialysis did not miss any hemodialysis as per the patient patient is found to have severe pulmonary edema and and patient is undergoing hemodialysis with removal of the 3.5 L of fluid. Patient blood pressure is high. Patient had normal ejection fraction does not have any history of heart failure patient does not urinate much. Patient is complaining of pain in the chest because of which cardiology evaluated the patient, EKG did not show any acute ST-T wave changes. 1 set of troponin is within normal limits patient's proBNP is elevated to 22,200. Patient has not had any fever chills patient does have leukocytosis 12,600 03/25/2024 Patient seen and evaluated sitting up in bed; just completed hemodialysis Vital signs are reviewed and stable with temperature of 97.9, pulse 86, respirations 17 and blood pressure 133/93 Lab review shows WBC 11.9, hemoglobin 8.2 and platelet count of 424, sodium 133, potassium 5.0, BUNs/creatinine of 31/3.50 Patient remains on hemodialysis 4 times a week; hypoxic respiratory failure resolved with hemodialysis --Remains on [facility] for blood sugar control 03/26/2024 Patient is seen and evaluated in room at bedside; resting comfortably; no complaint of shortness of breath Vital signs are reviewed and temperature of 98.3, pulse 78, respiration 18 and blood pressure of 134/86 with O2 saturation 98% on 3 L Blood work reveals WBC of 12.6, hemoglobin of 7.8 and platelet count of 376, sodium 137, potassium 4.6, BUNs/creatinine of 27.5/3.9 Patient undergoes hemodialysis Wednesday, Wednesday, and Wednesday; nephrology planning hemodialysis tomorrow morning -Patient remains on 1500 cc fluid restriction 03/27/2024 This is a pleasant 34 years old female who presents initially because of shortness of breath from [facility], she was wheezing and hypoxic and she had to be placed on CPAP. Patient was found to be fluid overloaded and she underwent hemodialysis as she is a known case of end-stage renal disease on hemodialysis as an outpatient and her breathing is improving. Today is awake and alert, she is breathing fine on 3 L oxygen was saturating 95 to 99% with no dyspnea or chest pain or coughing. 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 Patient is asymptomatic. Will switch her Levemir to 20 units daily and 5 units at bedtime. She is complaining from mild ear pain and migraine headache which is controlled. Patient hemoglobin 7.8. Blood pressure is borderline but this morning is better with systolic around 120. Procalcitonin is improving 15 down to 1.7 and 0.8 today. Patient is not on antibiotic Repeat chest x-ray: Improved aeration and fluid overload status Possible discharge in 24 to 48 hours if she keeps improving 03/28/2024 Patient still complaining from nausea, she tolerates diet well though about 75 to 100%. Reglan as needed is added No significant abdominal pain or tenderness Patient complains from mild right ear pain x 7 days which might benefit from ENT evaluation pulm consulted She is currently breathing easily. Hypoxia and tachypnea improved. Cardiology is already signed off the case. Continue with hemodialysis per nephrology team pt with still right side headache, she states her pain is in right ear with some hearing difficulty pain is also on right side of head, no visioni problems we checked ESR and is 10 consult neurology service and input is appreciated ct of the brain is ordered pt may bnefit from ENT Evaluation as well pt tolerates diet well Objective - Vital Signs Vital signs: Vital Signs Temp 98.1 F 03/29/24 13:39 Pulse 82 03/29/24 13:39 Resp 20 03/29/24 13:39 BP 95/57 03/29/24 13:39 Pulse Ox 95 03/29/24 13:39 FiO2 40 03/16/24 12:03 Intake & Output 03/28/24 03/29/24 03/29/24 18:59 06:59 18:59 Intake Total 360 Balance 360 Weight 72.1 kg Intake: Oral 360 Other: Voiding Method Toilet Toilet # Voids 1 1 - Exam GENERAL: The patient is alert and oriented x3, not in any acute distress. Well developed, well nourished. HEENT: Pupils are round and equally reacting to light. EOMI. No scleral icterus. No conjunctival pallor. Normocephalic, atraumatic. No pharyngeal erythema. No thyromegaly. CARDIOVASCULAR: S1 and S2 present. No murmurs, rubs, or gallops. PULMONARY: Chest is clear to auscultation, no wheezing , no crackles. ABDOMEN: Soft, nontender, nondistended, normoactive bowel sounds. No palpable organomegaly. MUSCULOSKELETAL: No joint swelling or deformity. EXTREMITIES: No cyanosis, clubbing, or pedal edema. NEUROLOGICAL: Gross neurological examination did not reveal any focal deficits. SKIN: No rashes. no petechiae. - Labs CBC & Chem 7: 03/27/24 06:10 03/27/24 06:10 Labs: Abnormal Lab Results - Last 24 Hours (Table) 03/28/24 03/28/24 03/29/24 Range/Units 16:40 20:20 01:44 POC Glucose (mg/dL) 158 H 306 H 463 H (70-110) mg/dL 03/29/24 03/29/24 Range/Units 03:44 05:55 POC Glucose (mg/dL) 373 H 246 H (70-110) mg/dL Assessment and Plan Assessment: -Acute respiratory failure secondary to pulmonary edema from end-stage renal disease patient is undergoing hemodialysis received IV Lasix in the ER. Continues on oxygen at 2L nasal cannula with saturation more than 95% -right ear pain and right headache , low ESR, HEAD CT is pending , neurology team consutl. refer to ENT SPECIALTY -Nausea secondary to uremia and end-stage renal disease continues on antiemetics, continue oral Compazine as needed, nausea has improved. -History of gastroparesis maintained on Reglan on an outpatient basis -Anemia, likely chronic with chronic kidney disease underlying iron deficiency noted. FOBT Is negative , f/u as outpatient -Leukocytosis with elevated procalcitonin level also has developed acute tracheobronchitis patient has completed course of azithromycin.procalcitonin is trending down , no more symptoms, she is off antibiotics and doing well, more antibiotic would have more harm than benefits as pt is afebrile and asymptomatic -Sinusitis , f/u with ENT outpatient -Chest pressure which appears more musculoskeletal in nature, pain is reproducible with palpation. Patient states this is from coughing. resolved no chest pain today -Hypertension uncontrolled elevated , improved with hemodialysis -Gastroesophageal reflux disease -End-stage renal disease -Seizure disorder -Hypothyroidism -Chronic pain patient continues on oral [place] as well as baclofen, methocarbamol as needed -Depression DVT prophylaxis: Subcutaneous heparin GI prophylaxis Full Code possible dc in 24-48 hours
[2024-03-29] MEDS: Acetaminophen-Codeine 300-30mg TAB PO STA (22:23)
[2024-03-30 02:05] LABS: Glucose,Whole Blood 154 mg/dL (70-110)
[2024-03-30 05:47] LABS: Glucose,Whole Blood 176 mg/dL (70-110)
[2024-03-30] MEDS: Acetaminophen-Codeine 300-30mg TAB PO PRN (06:23)
[2024-03-30 08:21] VITALS: RESP 18
--- NOTE | 2024-03-30 08:43 | CT ---
EXAMINATION TYPE: CT brain wo con CT DLP: 1095.4 mGycm, Automated exposure control for dose reduction was used. DATE OF EXAM: 03/30/2024 8:33 AM COMPARISON: 12/27/2023. CLINICAL INDICATION:Female, 34 years old with history of Right ear, right frontal/temporal LEGER, weakne ss TECHNIQUE: Brain: Axial CT images of the brain were obtained with coronal and sagittal reformats created and rev iewed. Contrast used: None. Oral contrast used: None. FINDINGS: Brain: Extra-axial spaces: No abnormal extra-axial fluid collections. Ventricular system: Within normal limits Cerebral parenchyma: No acute intraparenchymal hemorrhage or mass effect. The darling-white junction is well differentiated. Cerebellum: Unremarkable. Mass effect: No evidence of midline shift. Intracranial vasculature: Atherosclerotic calcifications of the intracranial vessels. Soft tissues: Normal. Calvarium/osseous structures: No depressed skull fracture. Paranasal sinuses and mastoid air cells: Mild scattered paranasal sinus disease. Visualized orbits: Orbital contents are intact. IMPRESSION: No acute intracranial process.
--- NOTE | 2024-03-30 10:34 | P.CNNES ---
History of Present Illness Consult date: 03/29/24 Requesting physician: Jamal Glasgow Reason for Consult: right headache History of Present Illness: Patient is a 34-year-old female well-known to neurology service from previous multiple admissions to the hospital, came to the hospital because of fluid overload. Patient has history of end-stage renal disease on hemodialysis 4 days a week. Neurology was consulted for headache. Patient states that she is feeling her heartbeat in her head. When she is swallowing, she gets shooting pain in the right ear that goes to the head pointing to the right frontal temporal region. She is light and noise sensitive, and also has nausea but no vomiting. The headache is getting worse. The headache started 4 days ago. Patient denies any history of migraines. Patient states that her right side of face swells up more. Patient has chronic visual disturbance and she continues to have blurred vision right eye and she sees shadow. The left eye has some hemorrhage issues. She is off Plavix, only on aspirin. Patient states that she is receiving Fioricet which is not working. She is allergic to Dilaudid. She believes morphine works. Her ESR is 10, CBC with WBC 11.4 hemoglobin 7.6, platelets 372. Electrolytes ar e normal, BUN 48, creatinine 5.3. Calcium is normal. Her last hemoglobin A1c 5.8 on 03/15/2024. Lipid panel with cholesterol 125, LDL 43, HDL 73 and triglycerides 38. B12 882, folate 26.8, TSH is normal. SELAM, ANCA antibodies, dsDNA, abdominal basement membrane antibodies, complements are normal. Some other workup during previous hospital visit consisted of: Vitamin B12: 882, folate 12.50 TSH: 7.230, free T4: 1.17. Hemoglobin A1c 5.8 on 03/15/2024 Lipid panel with cholesterol 125, LDL 43, HDL 73, triglycerides 38, on 03/10/2024. 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 No acute intracranial process identified at this time. CT of the sinuses performed 02/22/2024 which revealed no suspicious acute changes paranasal sinuses CT. Left anterior septal deviation. CTA head and neck 02/18/2024 revealed no significant vascular abnormality. Carotid duplex was reported as less than 50% stenosis of bilateral carotid bifurcation. 2D echo: Left ventricular EF 55-60%. Small pericardial effusion No tamponade physiology HAYDER 12/31/2023: 1. The aortic valve is tricuspid with normal function. 2. The mitral valve appears be normal with mild mitral regurgitation. 3. Tricuspid valve is normal with no vegetation. 4. The interatrial septum is intact. No evidence of PFO. 5. Left atrial appendage is free of clot. 6. Left ventricular ejection fraction 55% 7. No vegetation noted 8. Dialysis catheter noted in right atrium with no vegetation noted on catheter. Review of Systems As mentioned in HPI. Past Medical History Past Medical History: Diabetes Mellitus, GERD/Reflux, Hypertension, Renal Disease, Seizure Disorder, Thyroid Disorder Additional Past Medical History / Comment(s): Neuropathy, last seizure 2020, gastroparesis, headaches with dialysis, states "fast heart rate" since giving ., receives Hemodialysis Wednesday- and Saturdays at [facility] right chest hemodialysis catheter., severe HTN. patient awaiting Kidney and Pancrease Transplant. , states sometimes she has had stroke -like symptoms but no stroke., hx of c-diff 2013. History of Any Multi-Drug Resistant Organisms: None Reported Date of last positivie culture/infection: None MDRO Source:: None Past Surgical History: Adenoidectomy, Section, Cholecystectomy, Orthopedic Surgery, Tonsillectomy Additional Past Surgical History / Comment(s): 2 KNEE SCOPES, EAR TUBES, additional left knee surgery related to fracture, new port a cath sept , ey e surgeries for diabetic retinopathy. Past Anesthesia/Blood Transfusion Reactions: Previous Problems w/ Anesthesia Additional Past Anesthesia/Blood Transfusion Reaction / Comment(s): confusion Past Psychological History: Anxiety, Depression Smoking Status: Former smoker Past Alcohol Use History: None Reported Additional Past Alcohol Use History / Comment(s): quit smoking 01/08 hx of up to 3 ppd. Past Drug Use History: Marijuana, Methamphetamine Additional Drug Use History / Comment(s): previously using marijuana edibles in nov 2023. Not eating currently - Past Family History Father Family Medical History: Unable to Obtain Mother Family Medical History: No Reported History Grandfather Family Medical History: Coronary Artery Disease (CAD) Additional Family Medical History / Comment(s): Diabetes mellitus type 2 Medications and Allergies Home Medications Medication Instructions Recorded Confirmed Type Levothyroxine Sodium [Synthroid] 175 mcg PO DAILY@0600 10/22/23 03/14/24 History Sertraline [Zoloft] 200 mg PO DAILY@0800 10/22/23 03/14/24 History Atorvastatin [Lipitor] 40 mg PO HS@209912/27/23 03/14/24 History Divalproex ER [Depakote ER] 500 mg PO BID@0800,1700 12/27/23 03/14/24 History Ondansetron [Zofran] 4 mg PO Q8HR PRN 12/27/23 03/14/24 History Pantoprazole [Protonix] 40 mg PO DAILY@0600 12/27/23 03/14/24 History Victoria Caps 1 cap PO HS@209912/27/23 03/14/24 History methocarbamoL [Robaxin-750] 750 mg PO QID@02,06,12,17 12/27/23 03/14/24 History Aspirin 81 mg PO DAILY@0800 02/05/24 03/14/24 History Docusate [Colace] 100 mg PO DAILY@0800 02/05/24 03/14/24 History Lidocaine 4% Patch 1 patch TOPICAL DAILY@0800 02/05/24 03/14/24 History Magnesium Hydroxide [Milk of 7,200 mg PO DAILY PRN 02/05/24 03/14/24 History Magnesia Concentrate] NIFEdipine XL [Procardia XL] 60 mg PO BID@0800,1700 02/05/24 03/14/24 History Sevelamer [Renvela] 1,600 mg PO AC-TID@07,11,1630 02/05/24 03/14/24 History Torsemide [Demadex] 40 mg PO DAILY@0800 02/05/24 03/14/24 History bisacodyL [Dulcolax] 10 mg RECTAL DAILY PRN 02/05/24 03/14/24 History Ipratropium-Albuterol Nebulize 3 ml INHALATION RT-TID PRN each 02/14/24 03/14/24 Rx [Duoneb 0.5 mg-3 mg/3 ml Soln] Isosorbide Mononitrate ER [Imdur] 30 mg PO DAILY tab 02/14/24 03/14/24 Rx Metoclopramide [Reglan] 5 mg PO AC-TID tab 02/14/24 03/14/24 Rx polyethylene glycoL 3350 [Miralax] 17 gm PO AC-LUNCH #527 gm 02/14/24 03/14/24 Rx Acetaminophen [Tylenol] 650 mg PO Q4H PRN 02/18/24 03/14/24 History Biotene Dry Mouth/Throat 10 ml PO BID PRN 02/18/24 03/14/24 History ALPRAZolam [Xanax] 0.5 mg PO BID PRN #20 tab 02/25/24 03/14/24 Rx Baclofen [Lioresal] 10 mg PO TID PRN tab 02/25/24 03/14/24 Rx Melatonin 1 mg PO HS tab 02/25/24 03/14/24 Rx hydrALAZINE HCL [Apresoline] 150 mg PO TID tab 02/25/24 03/14/24 Rx minoxidiL [Loniten] 2.5 mg PO DAILY tab 02/25/24 03/14/24 Rx traZODone HCL [Desyrel] 50 mg PO HS tab 02/25/24 03/14/24 Rx Butalb/APAP/Caff 50-325-40Mg 1 tab PO Q4HR PRN 03/14/24 03/14/24 History [Fioricet 50-325-40] Darbepoetin Artur [Aranesp] 40 mcg SQ MO 03/14/24 03/14/24 History HYDROcodone/APAP 7.5-325MG [[place] 1 tab PO Q8HR PRN 03/14/24 03/14/24 History 7.5-325] Insulin Aspart (For Pump) [NovoLOG 0.01 unit SQ-PUMP CONTINUOUS 03/14/24 03/14/24 History (For Pump)] Insulin Glargine [Lantus Vial] 25 unit SQ HS 03/14/24 03/14/24 History Labetalol [Trandate] 400 mg PO BID@0800,1700 03/14/24 03/14/24 History Menthol [Biofreeze] 1 applic TOPICAL BID PRN 03/14/24 03/14/24 History Sevelamer [Renvela] 800 mg PO HS 03/14/24 03/14/24 History cloNIDine HCL [Catapres] 0.3 mg PO TID 03/14/24 03/14/24 History Allergies Allergy/AdvReac Type Severity Reaction Status Date / Time hydromorphone HCl Allergy Anaphylaxis Verified 03/14/24 10:00 [From Dilaudid] propoxyphene Allergy Rash/Hives Verified 03/14/24 10:00 [From Darvocet-N] tramadol Allergy Anaphylaxis Verified 03/14/24 10:00 ibuprofen [From Motrin] AdvReac unable to Verified 03/14/24 10:00 take due to kidney disease venom-honey bee AdvReac passes out Verified 03/14/24 10:00 [bee venom (honey bee)] Physical Examination - Vital Signs Vital Signs: Vital Signs Temp Pulse Pulse Pulse Resp BP BP 03/29/24 20:43 80 03/29/24 20:31 80 03/29/24 16:44 76 113/69 03/29/24 13:39 98.1 F 82 20 95/57 03/29/24 11:56 90 03/29/24 11:48 03/29/24 11:47 87 03/29/24 08:32 03/29/24 07:10 98.2 F 94 16 152/80 03/29/24 01:41 98.4 F 97 16 156/81 03/28/24 21:21 87 18 03/28/24 21:13 90 18 Pulse Ox 03/29/24 20:43 03/29/24 20:31 03/29/24 16:44 03/29/24 13:39 95 03/29/24 11:56 03/29/24 11:48 100 03/29/24 11:47 03/29/24 08:32 98 03/29/24 07:10 98 03/29/24 01:41 98 03/28/24 21:21 03/28/24 21:13 Intake and Output 03/29/24 03/29/24 03/29/24 06:59 14:59 22:59 Intake Total 360 Balance 360 Intake: Oral 360 Other: # Voids 1 3 Weight 72.1 kg Patient is a young female, very pleasant, in no acute distress. She has a flat affect. Patient is alert awake oriented to time place and person. Speech and language functions are normal. Patient can name and repeat very well. No aphasia or dysarthria. Attention, concentration and fund of knowledge is adequate. On cranial nerve examination, both pupils are round, the left pupil is better reactive than the right. Visual armendariz are difficult to assess because of significant diabetic retinopathy. Patient has possible nasal defect only of the right eye. Extraocular muscles are intact with no nystagmus. Face is symmetric. Her tongue protrudes to the midline. Palatal elevation and sensation normal, hearing and shoulder shrug normal, facial sensation equal. On muscle strength testing, there is no pronator drift and the strength is normal in arms and legs distally and proximally. Deep tendon reflexes are symmetric 1+ at the biceps, 1 brachioradialis, 1+ at the knees, 0 ankles and plantars downgoing bilaterally. Sensory to touch is equal. Cerebellar function showed mild ataxia for [id number]-qvfu testing only on the right, not left. Patient has ataxia of the left leg for nowo-ht-pdql testing, but not the left lower extremity. Tone and bulk of muscles normal. Gait deferred.. On general examination, there is no carotid bruit or murmur, S1-S2 audible. Chest is clear on consultation. Abdomen is soft nontender. No organomegaly, bowel sounds present. Peripheral pulses are present. No peripheral edema. Results - Laboratory Findings CBC and BMP: 03/27/24 06:10 03/27/24 06:10 Abnormal Lab Findings: Abnormal Labs 03/14/24 03/14/24 03/14/24 04:57 04:57 16:50 WBC 12.6 H RBC 2.83 L Hgb 9.0 L Hct 28.5 L MCV 100.6 H MCH MCHC RDW Immature Gran # Neutrophils # 9.5 H Lymphocytes # 0.6 L Eosinophils # 1.7 H Basophils # Sodium Potassium Chloride 96 L Carbon Dioxide 36 H Anion Gap BUN 37 H Creatinine 4.05 H Est GFR (CKD-EPI) BUN/Creatinine Ratio Glucose 181 H POC Glucose (mg/dL) 333 H Calcium Phosphorus Iron % Saturation Transferrin Ferritin ALT 43 H Total Protein Procalcitonin Urine Protein Urine Glucose (UA) Urine WBC Urine Mucus Hep Bs Antibody Crossmatch 03/14/24 03/14/24 03/15/24 19:56 22:52 04:34 WBC RBC Hgb Hct MCV MCH MCHC RDW Immature Gran # Neutrophils # Lymphocytes # Eosinophils # Basophils # Sodium Potassium Chloride Carbon Dioxide Anion Gap BUN Creatinine Est GFR (CKD-EPI) BUN/Creatinine Ratio Glucose POC Glucose (mg/dL) 406 H 330 H 29 L Calcium Phosphorus Iron % Saturation Transferrin Ferritin ALT Total Protein Procalcitonin Urine Protein Urine Glucose (UA) Urine WBC Urine Mucus Hep Bs Antibody Crossmatch 03/15/24 03/15/24 03/15/24 05:47 07:00 07:21 WBC RBC Hgb Hct MCV MCH MCHC RDW Immature Gran # Neutrophils # Lymphocytes # Eosinophils # Basophils # Sodium Potassium Chloride Carbon Dioxide Anion Gap BUN Creatinine Est GFR (CKD-EPI) BUN/Creatinine Ratio Glucose POC Glucose (mg/dL) 33 L 47 L 69 L Calcium Phosphorus Iron % Saturation Transferrin Ferritin ALT Total Protein Procalcitonin Urine Protein Urine Glucose (UA) Urine WBC Urine Mucus Hep Bs Antibody Crossmatch 03/15/24 03/15/24 03/15/24 10:52 14:53 14:53 WBC 11.4 H RBC 2.18 L Hgb 6.9 L* D Hct 21.8 L MCV MCH MCHC RDW Immature Gran # Neutrophils # 8.5 H Lymphocytes # 0.7 L Eosinophils # 1.0 H Basophils # Sodium 132 L Potassium Chloride 97 L Carbon Dioxide Anion Gap BUN Creatinine 2.22 H Est GFR (CKD-EPI) BUN/Creatinine Ratio Glucose 167 H POC Glucose (mg/dL) 52 L Calcium 8.3 L Phosphorus Iron % Saturation Transferrin Ferritin ALT Total Protein Procalcitonin Urine Protein Urine Glucose (UA) Urine WBC Urine Mucus Hep Bs Antibody Crossmatch 03/15/24 03/15/24 03/15/24 16:07 16:24 20:09 WBC RBC Hgb Hct MCV MCH MCHC RDW Immature Gran # Neutrophils # Lymphocytes # Eosinophils # Basophils # Sodium Potassium Chloride Carbon Dioxide Anion Gap BUN Creatinine Est GFR (CKD-EPI) BUN/Creatinine Ratio Glucose POC Glucose (mg/dL) 255 H 320 H Calcium Phosphorus Iron % Saturation Transferrin Ferritin ALT Total Protein Procalcitonin Urine Protein Urine Glucose (UA) Urine WBC Urine Mucus Hep Bs Antibody Crossmatch See Detail 03/16/24 03/16/24 03/16/24 01:55 06:09 06:10 WBC RBC Hgb Hct MCV MCH MCHC RDW Immature Gran # Neutrophils # Lymphocytes # Eosinophils # Basophils # Sodium Potassium Chloride Carbon Dioxide Anion Gap BUN Creatinine Est GFR (CKD-EPI) BUN/Creatinine Ratio Glucose POC Glucose (mg/dL) 213 H 34 L 34 L Calcium Phosphorus Iron % Saturation Transferrin Ferritin ALT Total Protein Procalcitonin Urine Protein Urine Glucose (UA) Urine WBC Urine Mucus Hep Bs Antibody Crossmatch 03/16/24 03/16/24 03/16/24 11:23 11:23 11:54 WBC RBC 2.20 L Hgb 7.4 L Hct 21.5 L MCV MCH MCHC RDW Immature Gran # Neutrophils # 7.8 H Lymphocytes # 0.6 L Eosinophils # 1.4 H Basophils # Sodium 133 L Potassium Chloride 96 L Carbon Dioxide 32 H Anion Gap BUN 34 H Creatinine 3.37 H Est GFR (CKD-EPI) BUN/Creatinine Ratio Glucose 46 L* POC Glucose (mg/dL) 64 L Calcium 8.3 L Phosphorus 4.7 H Iron 27 L % Saturation 11.34 L Transferrin 170.0 L Ferritin 340.0 H ALT Total Protein Procalcitonin Urine Protein Urine Glucose (UA) Urine WBC Urine Mucus Hep Bs Antibody Crossmatch 03/16/24 03/16/24 03/16/24 12:31 16:21 19:51 WBC RBC Hgb Hct MCV MCH MCHC RDW Immature Gran # Neutrophils # Lymphocytes # Eosinophils # Basophils # Sodium Potassium Chloride Carbon Dioxide Anion Gap BUN Creatinine Est GFR (CKD-EPI) BUN/Creatinine Ratio Glucose POC Glucose (mg/dL) 64 L 234 H 355 H Calcium Phosphorus Iron % Saturation Transferrin Ferritin ALT Total Protein Procalcitonin Urine Protein Urine Glucose (UA) Urine WBC Urine Mucus Hep Bs Antibody Crossmatch 03/17/24 03/17/24 03/17/24 02:37 06:26 07:54 WBC 14.2 H RBC 2.57 L Hgb 8.2 L Hct 25.7 L MCV MCH MCHC RDW Immature Gran # Neutrophils # 11.4 H Lymphocytes # 0.8 L Eosinophils # 0.9 H Basophils # Sodium Potassium Chloride Carbon Dioxide Anion Gap BUN Creatinine Est GFR (CKD-EPI) BUN/Creatinine Ratio Glucose POC Glucose (mg/dL) 283 H 315 H Calcium Phosphorus Iron % Saturation Transferrin Ferritin ALT Total Protein Procalcitonin Urine Protein Urine Glucose (UA) Urine WBC Urine Mucus Hep Bs Antibody Crossmatch 03/17/24 03/17/24 03/17/24 07:54 07:54 11:46 WBC RBC Hgb Hct MCV MCH MCHC RDW Immature Gran # Neutrophils # Lymphocytes # Eosinophils # Basophils # Sodium 130 L Potassium Chloride 91 L Carbon Dioxide Anion Gap BUN 26 H Creatinine 3.38 H Est GFR (CKD-EPI) BUN/Creatinine Ratio Glucose 225 H POC Glucose (mg/dL) 155 H Calcium Phosphorus Iron % Saturation Transferrin Ferritin ALT Total Protein 6.0 L Procalcitonin 15.10 H Urine Protein Urine Glucose (UA) Urine WBC Urine Mucus Hep Bs Antibody Crossmatch 03/18/24 03/18/24 03/18/24 01:37 02:09 09:26 WBC RBC 2.37 L Hgb 7.5 L Hct 23.4 L MCV MCH MCHC RDW Immature Gran # Neutrophils # Lymphocytes # Eosinophils # 1.6 H Basophils # Sodium Potassium Chloride Carbon Dioxide Anion Gap BUN Creatinine Est GFR (CKD-EPI) BUN/Creatinine Ratio Glucose POC Glucose (mg/dL) 34 L 60 L Calcium Phosphorus Iron % Saturation Transferrin Ferritin ALT Total Protein Procalcitonin Urine Protein Urine Glucose (UA) Urine WBC Urine Mucus Hep Bs Antibody Crossmatch 03/18/24 03/18/24 03/18/24 09:26 11:38 11:57 WBC RBC Hgb Hct MCV MCH MCHC RDW Immature Gran # Neutrophils # Lymphocytes # Eosinophils # Basophils # Sodium 132 L Potassium Chloride 94 L Carbon Dioxide Anion Gap BUN 26 H Creatinine 3.54 H Est GFR (CKD-EPI) BUN/Creatinine Ratio Glucose 69 L POC Glucose (mg/dL) 62 L 63 L Calcium Phosphorus Iron % Saturation Transferrin Ferritin ALT Total Protein Procalcitonin Urine Protein Urine Glucose (UA) Urine WBC Urine Mucus Hep Bs Antibody Crossmatch 03/18/24 03/18/24 03/19/24 16:13 19:45 07:09 WBC RBC 2.49 L Hgb 8.1 L Hct 24.2 L MCV MCH MCHC RDW Immature Gran # Neutrophils # Lymphocytes # Eosinophils # 2.0 H Basophils # Sodium Potassium Chloride Carbon Dioxide Anion Gap BUN Creatinine Est GFR (CKD-EPI) BUN/Creatinine Ratio Glucose POC Glucose (mg/dL) 286 H 424 H Calcium Phosphorus Iron % Saturation Transferrin Ferritin ALT Total Protein Procalcitonin Urine Protein Urine Glucose (UA) Urine WBC Urine Mucus Hep Bs Antibody Crossmatch 03/19/24 03/19/24 03/19/24 07:09 16:25 20:12 WBC RBC Hgb Hct MCV MCH MCHC RDW Immature Gran # Neutrophils # Lymphocytes # Eosinophils # Basophils # Sodium 136 L Potassium Chloride Carbon Dioxide 31 H Anion Gap BUN 22 H Creatinine 3.31 H Est GFR (CKD-EPI) BUN/Creatinine Ratio Glucose POC Glucose (mg/dL) 172 H 327 H Calcium Phosphorus Iron % Saturation Transferrin Ferritin ALT Total Protein Procalcitonin Urine Protein Urine Glucose (UA) Urine WBC Urine Mucus Hep Bs Antibody Crossmatch 03/20/24 03/20/24 03/20/24 01:49 05:55 12:18 WBC RBC Hgb Hct MCV MCH MCHC RDW Immature Gran # Neutrophils # Lymphocytes # Eosinophils # Basophils # Sodium Potassium Chloride Carbon Dioxide Anion Gap BUN Creatinine Est GFR (CKD-EPI) BUN/Creatinine Ratio Glucose POC Glucose (mg/dL) 228 H 124 H Calcium Phosphorus Iron % Saturation Transferrin Ferritin ALT Total Protein Procalcitonin Urine Protein Urine Glucose (UA) Urine WBC Urine Mucus Hep Bs Antibody A Crossmatch 03/20/24 03/20/24 03/21/24 16:35 20:18 01:52 WBC RBC Hgb Hct MCV MCH MCHC RDW Immature Gran # Neutrophils # Lymphocytes # Eosinophils # Basophils # Sodium Potassium Chloride Carbon Dioxide Anion Gap BUN Creatinine Est GFR (CKD-EPI) BUN/Creatinine Ratio Glucose POC Glucose (mg/dL) 256 H 446 H 374 H Calcium Phosphorus Iron % Saturation Transferrin Ferritin ALT Total Protein Procalcitonin Urine Protein Urine Glucose (UA) Urine WBC Urine Mucus Hep Bs Antibody Crossmatch 03/21/24 03/21/24 03/21/24 05:58 06:39 11:39 WBC RBC Hgb Hct MCV MCH MCHC RDW Immature Gran # Neutrophils # Lymphocytes # Eosinophils # Basophils # Sodium 134 L Potassium Chloride Carbon Dioxide Anion Gap BUN 25 H Creatinine 3.41 H Est GFR (CKD-EPI) BUN/Creatinine Ratio Glucose 204 H POC Glucose (mg/dL) 248 H 137 H Calcium Phosphorus Iron % Saturation Transferrin Ferritin ALT Total Protein Procalcitonin Urine Protein Urine Glucose (UA) Urine WBC Urine Mucus Hep Bs Antibody Crossmatch 03/21/24 03/21/24 03/21/24 14:21 16:34 19:50 WBC RBC Hgb Hct MCV MCH MCHC RDW Immature Gran # Neutrophils # Lymphocytes # Eosinophils # Basophils # Sodium Potassium Chloride Carbon Dioxide Anion Gap BUN Creatinine Est GFR (CKD-EPI) BUN/Creatinine Ratio Glucose POC Glucose (mg/dL) 262 H 438 H Calcium Phosphorus Iron % Saturation Transferrin Ferritin ALT Total Protein Procalcitonin Urine Protein 3+ H Urine Glucose (UA) 4+ H Urine WBC 15 H Urine Mucus Rare H Hep Bs Antibody Crossmatch 03/22/24 03/22/24 03/22/24 02:08 06:01 11:17 WBC RBC Hgb Hct MCV MCH MCHC RDW Immature Gran # Neutrophils # Lymphocytes # Eosinophils # Basophils # Sodium Potassium Chloride Carbon Dioxide Anion Gap BUN Creatinine Est GFR (CKD-EPI) BUN/Creatinine Ratio Glucose POC Glucose (mg/dL) 230 H 196 H 262 H Calcium Phosphorus Iron % Saturation Transferrin Ferritin ALT Total Protein Procalcitonin Urine Protein Urine Glucose (UA) Urine WBC Urine Mucus Hep Bs Antibody Crossmatch 03/22/24 03/22/24 03/23/24 16:33 20:03 01:56 WBC RBC Hgb Hct MCV MCH MCHC RDW Immature Gran # Neutrophils # Lymphocytes # Eosinophils # Basophils # Sodium Potassium Chloride Carbon Dioxide Anion Gap BUN Creatinine Est GFR (CKD-EPI) BUN/Creatinine Ratio Glucose POC Glucose (mg/dL) 350 H 426 H 222 H Calcium Phosphorus Iron % Saturation Transferrin Ferritin ALT Total Protein Procalcitonin Urine Protein Urine Glucose (UA) Urine WBC Urine Mucus Hep Bs Antibody Crossmatch 03/23/24 03/23/24 03/23/24 05:55 07:58 07:58 WBC 13.0 H RBC 2.49 L Hgb 8.0 L Hct 24.8 L MCV MCH MCHC RDW Immature Gran # Neutrophils # 8.2 H Lymphocytes # Eosinophils # 2.2 H Basophils # Sodium 135 L Potassium 5.7 H Chloride Carbon Dioxide Anion Gap BUN 38 H Creatinine 4.38 H Est GFR (CKD-EPI) BUN/Creatinine Ratio Glucose 107 H POC Glucose (mg/dL) 140 H Calcium Phosphorus Iron % Saturation Transferrin Ferritin ALT Total Protein Procalcitonin Urine Protein Urine Glucose (UA) Urine WBC Urine Mucus Hep Bs Antibody Crossmatch 03/23/24 03/23/24 03/24/24 16:55 19:50 02:23 WBC RBC Hgb Hct MCV MCH MCHC RDW Immature Gran # Neutrophils # Lymphocytes # Eosinophils # Basophils # Sodium Potassium Chloride Carbon Dioxide Anion Gap BUN Creatinine Est GFR (CKD-EPI) BUN/Creatinine Ratio Glucose POC Glucose (mg/dL) 349 H 390 H 124 H Calcium Phosphorus Iron % Saturation Transferrin Ferritin ALT Total Protein Procalcitonin Urine Protein Urine Glucose (UA) Urine WBC Urine Mucus Hep Bs Antibody Crossmatch 03/24/24 03/24/24 03/24/24 04:37 05:52 09:34 WBC RBC Hgb Hct MCV MCH MCHC RDW Immature Gran # Neutrophils # Lymphocytes # Eosinophils # Basophils # Sodium Potassium Chloride Carbon Dioxide Anion Gap BUN Creatinine Est GFR (CKD-EPI) BUN/Creatinine Ratio Glucose POC Glucose (mg/dL) 115 H 120 H Calcium Phosphorus Iron % Saturation Transferrin Ferritin ALT Total Protein Procalcitonin 1.72 H Urine Protein Urine Glucose (UA) Urine WBC Urine Mucus Hep Bs Antibody Crossmatch 03/24/24 03/24/24 03/24/24 09:34 09:34 11:13 WBC 14.4 H RBC 2.69 L Hgb 8.4 L Hct 27.2 L MCV 101.1 H MCH MCHC RDW Immature Gran # Neutrophils # 10.1 H Lymphocytes # Eosinophils # 2.1 H Basophils # Sodium 133 L Potassium 5.8 H Chloride Carbon Dioxide Anion Gap BUN 28 H Creatinine 3.70 H Est GFR (CKD-EPI) BUN/Creatinine Ratio Glucose 273 H POC Glucose (mg/dL) 414 H Calcium Phosphorus Iron % Saturation Transferrin Ferritin ALT Total Protein Procalcitonin Urine Protein Urine Glucose (UA) Urine WBC Urine Mucus Hep Bs Antibody Crossmatch 03/24/24 03/24/24 03/24/24 16:09 20:27 20:41 WBC RBC Hgb Hct MCV MCH MCHC RDW Immature Gran # Neutrophils # Lymphocytes # Eosinophils # Basophils # Sodium 132 L Potassium Chloride 95 L Carbon Dioxide Anion Gap BUN 24 H Creatinine 2.94 H Est GFR (CKD-EPI) BUN/Creatinine Ratio Glucose 188 H POC Glucose (mg/dL) 268 H 226 H Calcium Phosphorus Iron % Saturation Transferrin Ferritin ALT Total Protein Procalcitonin Urine Protein Urine Glucose (UA) Urine WBC Urine Mucus Hep Bs Antibody Crossmatch 03/25/24 03/25/24 03/25/24 06:17 06:23 06:23 WBC 11.9 H RBC 2.57 L Hgb 8.0 L Hct 25.3 L MCV MCH MCHC RDW Immature Gran # Neutrophils # 7.9 H Lymphocytes # Eosinophils # 1.0 H Basophils # Sodium 133 L Potassium Chloride Carbon Dioxide Anion Gap BUN 31 H Creatinine 3.50 H Est GFR (CKD-EPI) BUN/Creatinine Ratio Glucose 34 L* POC Glucose (mg/dL) 64 L Calcium Phosphorus Iron % Saturation Transferrin Ferritin ALT Total Protein Procalcitonin Urine Protein Urine Glucose (UA) Urine WBC Urine Mucus Hep Bs Antibody Crossmatch 03/25/24 03/25/24 03/25/24 12:08 16:47 22:06 WBC RBC Hgb Hct MCV MCH MCHC RDW Immature Gran # Neutrophils # Lymphocytes # Eosinophils # Basophils # Sodium Potassium Chloride Carbon Dioxide Anion Gap BUN Creatinine Est GFR (CKD-EPI) BUN/Creatinine Ratio Glucose POC Glucose (mg/dL) 160 H 463 H 346 H Calcium Phosphorus Iron % Saturation Transferrin Ferritin ALT Total Protein Procalcitonin Urine Protein Urine Glucose (UA) Urine WBC Urine Mucus Hep Bs Antibody Crossmatch 03/26/24 03/26/24 03/26/24 02:52 06:00 06:19 WBC RBC Hgb Hct MCV MCH MCHC RDW Immature Gran # Neutrophils # Lymphocytes # Eosinophils # Basophils # Sodium Potassium Chloride Carbon Dioxide Anion Gap BUN Creatinine Est GFR (CKD-EPI) BUN/Creatinine Ratio Glucose POC Glucose (mg/dL) 126 H 61 L 67 L Calcium Phosphorus Iron % Saturation Transferrin Ferritin ALT Total Protein Procalcitonin Urine Protein Urine Glucose (UA) Urine WBC Urine Mucus Hep Bs Antibody Crossmatch 03/26/24 03/26/24 03/26/24 06:44 06:44 11:43 WBC 12.60 H RBC 2.41 L Hgb 7.8 L Hct 24.5 L MCV 101.7 H MCH 32.4 H MCHC 31.8 L RDW 15.0 H Immature Gran # 0.30 H Neutrophils # Lymphocytes # Eosinophils # 1.51 H Basophils # 0.11 H Sodium Potassium Chloride Carbon Dioxide Anion Gap 13.30 H BUN 27.5 H Creatinine 3.9 H Est GFR (CKD-EPI) 15 L BUN/Creatinine Ratio 7.05 L Glucose POC Glucose (mg/dL) 63 L Calcium Phosphorus Iron % Saturation Transferrin Ferritin ALT Total Protein Procalcitonin Urine Protein Urine Glucose (UA) Urine WBC Urine Mucus Hep Bs Antibody Crossmatch 03/26/24 03/26/24 03/26/24 15:58 16:51 21:21 WBC RBC Hgb Hct MCV MCH MCHC RDW Immature Gran # Neutrophils # Lymphocytes # Eosinophils # Basophils # Sodium Potassium Chloride Carbon Dioxide Anion Gap BUN Creatinine Est GFR (CKD-EPI) BUN/Creatinine Ratio Glucose POC Glucose (mg/dL) 371 H 425 H 259 H Calcium Phosphorus Iron % Saturation Transferrin Ferritin ALT Total Protein Procalcitonin Urine Protein Urine Glucose (UA) Urine WBC Urine Mucus Hep Bs Antibody Crossmatch 03/27/24 03/27/24 03/27/24 04:54 05:18 06:10 WBC 11.40 H RBC 2.39 L Hgb 7.6 L Hct 23.8 L MCV 99.6 H MCH MCHC 31.9 L RDW 15.5 H Immature Gran # 0.25 H Neutrophils # Lymphocytes # Eosinophils # 1.21 H Basophils # 0.15 H Sodium Potassium Chloride Carbon Dioxide Anion Gap BUN Creatinine Est GFR (CKD-EPI) BUN/Creatinine Ratio Glucose POC Glucose (mg/dL) 35 L 124 H Calcium Phosphorus Iron % Saturation Transferrin Ferritin ALT Total Protein Procalcitonin Urine Protein Urine Glucose (UA) Urine WBC Urine Mucus Hep Bs Antibody Crossmatch 03/27/24 03/27/24 03/27/24 06:10 06:10 12:00 WBC RBC Hgb Hct MCV MCH MCHC RDW Immature Gran # Neutrophils # Lymphocytes # Eosinophils # Basophils # Sodium Potassium Chloride Carbon Dioxide Anion Gap 17.80 H BUN 48.2 H Creatinine 5.3 H Est GFR (CKD-EPI) 10 L BUN/Creatinine Ratio 9.09 L Glucose POC Glucose (mg/dL) 175 H Calcium Phosphorus Iron % Saturation Transferrin Ferritin ALT Total Protein Procalcitonin 0.83 H Urine Protein Urine Glucose (UA) Urine WBC Urine Mucus Hep Bs Antibody Crossmatch 03/27/24 03/27/24 03/28/24 16:28 20:01 06:14 WBC RBC Hgb Hct MCV MCH MCHC RDW Immature Gran # Neutrophils # Lymphocytes # Eosinophils # Basophils # Sodium Potassium Chloride Carbon Dioxide Anion Gap BUN Creatinine Est GFR (CKD-EPI) BUN/Creatinine Ratio Glucose POC Glucose (mg/dL) 162 H 194 H 69 L Calcium Phosphorus Iron % Saturation Transferrin Ferritin ALT Total Protein Procalcitonin Urine Protein Urine Glucose (UA) Urine WBC Urine Mucus Hep Bs Antibody Crossmatch 03/28/24 03/28/24 03/28/24 11:10 16:40 20:20 WBC RBC Hgb Hct MCV MCH MCHC RDW Immature Gran # Neutrophils # Lymphocytes # Eosinophils # Basophils # Sodium Potassium Chloride Carbon Dioxide Anion Gap BUN Creatinine Est GFR (CKD-EPI) BUN/Creatinine Ratio Glucose POC Glucose (mg/dL) 349 H 158 H 306 H Calcium Phosphorus Iron % Saturation Transferrin Ferritin ALT Total Protein Procalcitonin Urine Protein Urine Glucose (UA) Urine WBC Urine Mucus Hep Bs Antibody Crossmatch 03/29/24 03/29/24 03/29/24 01:44 03:44 05:55 WBC RBC Hgb Hct MCV MCH MCHC RDW Immature Gran # Neutrophils # Lymphocytes # Eosinophils # Basophils # Sodium Potassium Chloride Carbon Dioxide Anion Gap BUN Creatinine Est GFR (CKD-EPI) BUN/Creatinine Ratio Glucose POC Glucose (mg/dL) 463 H 373 H 246 H Calcium Phosphorus Iron % Saturation Transferrin Ferritin ALT Total Protein Procalcitonin Urine Protein Urine Glucose (UA) Urine WBC Urine Mucus Hep Bs Antibody Crossmatch 03/29/24 03/29/24 16:34 21:00 WBC RBC Hgb Hct MCV MCH MCHC RDW Immature Gran # Neutrophils # Lymphocytes # Eosinophils # Basophils # Sodium Potassium Chloride Carbon Dioxide Anion Gap BUN Creatinine Est GFR (CKD-EPI) BUN/Creatinine Ratio Glucose POC Glucose (mg/dL) 131 H 290 H Calcium Phosphorus Iron % Saturation Transferrin Ferritin ALT Total Protein Procalcitonin Urine Protein Urine Glucose (UA) Urine WBC Urine Mucus Hep Bs Antibody Crossmatch Assessment and Plan Assessment: * Cephalgia, right frontal temporal region and involving the right ear. Rule out otitis media, rule out sinusitis. ESR is normal. * History of chronic visual disturbance due to diabetic retinopathy, vitreous hemorrhage. 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 * ESRD on dialysis since 04/21/2023 * Chronic Diabetes Mellitus, with his most recent A1c 6.7 on 01/17/2024. * Hypertension * Hypothyroidism Plan: * CT head, rule out sinusitis. Rule out other causes. ESR is normal. * Patient states Fioricet and [place] is not helping. She feels morphine may help, but with ESRD, could create other metabolic problems. * Discussed with primary physician, and we will start Tylenol 3. * Management of other medical conditions as per IM and other specialties on board. * Neurology will follow. Thank you for the consult.
--- NOTE | 2024-03-30 10:59 | P.PN ---
Subjective patient is seen for follow-up for end-stage renal disease. Admitted with shortness of breath and fluid overload. no complaints of shortness of breath. currently being dialyzed 4 times a week. Continues to complain of nausea Objective - Vital Signs Vital signs: Vital Signs Temp 97.9 F 03/30/24 07:06 Pulse 88 03/30/24 07:06 Resp 18 03/30/24 07:06 BP 135/78 03/30/24 07:06 Pulse Ox 99 03/30/24 02:05 FiO2 40 03/16/24 12:03 Intake & Output 03/29/24 03/30/24 03/30/24 18:59 06:59 18:59 Weight 73.4 kg Other: # Voids 3 4 - Exam patient is awake. comfortable Examination of the heart S1 and S2 Examination of the lungs bilateral breath sounds are heard Abdomen is soft nontender Examination of lower extremities shows trace edema MANAGER TRADING exam grossly intact - Labs CBC & Chem 7: 03/27/24 06:10 03/27/24 06:10 Labs: Abnormal Lab Results - Last 24 Hours (Table) 03/29/24 03/29/24 03/30/24 Range/Units 16:34 21:00 02:04 POC Glucose (mg/dL) 131 H 290 H 154 H (70-110) mg/dL 03/30/24 Range/Units 05:46 POC Glucose (mg/dL) 176 H (70-110) mg/dL Assessment and Plan Assessment: 1. End-stage renal disease on hemodialysis on a Wednesday schedule and receiving treatments 4-5 times a week based on volume status. 2. Volume overload. Patient has been maintained on hemodialysis 4-5 times a week as outpatient. Fluid restriction has been discussed on multiple occasions. 3. Acute hypoxic respiratory failure secondary to CHF and volume overload 4. Hypertension partly volume sensitive, improved with hemodialysis and ultrafiltration 5. CK D mineral bone disorder Plan: hemodialysis today. maintain scheduled dose of Reglan Salt and fluid restriction continue Aranesp continue Renvela with meals
[2024-03-30 11:51] LABS: Glucose,Whole Blood 104 mg/dL (70-110)
[2024-03-30 15:08] VITALS: BP 161/99; PULSE 83; TEMP 98
--- NOTE | 2024-03-30 15:35 | P.DS ---
Providers Date of admission: 03/14/24 06:08 Attending physician: Dahiana Chan Consults: 03/14/24 06:07 Consult Physician Urgent Consulting Provider: Gary Andrade Consult Reason/Comments: esrd on hd, bipap resp failure Do you want consulting provider notified?: Yes 03/28/24 14:25 Consult Physician Routine Consulting Provider: Luis Eduardo Suarez Consult Reason/Comments: right ear pain. Do you want consulting provider notified?: Yes 03/29/24 13:39 Consult Physician Routine Consulting Provider: Randi Severino Consult Reason/Comments: right headache Do you want consulting provider notified?: Yes 03/30/24 10:27 Consult Physician Urgent Consulting Provider: Yvan Torres Consult Reason/Comments: depression , stress Do you want consulting provider notified?: Yes Primary care physician: Rambo Ayon [facility] Course: Diagnoses: -Acute respiratory failure secondary to pulmonary edema from end-stage renal disease patient is undergoing hemodialysis received IV Lasix in the ER. Continu es on oxygen at 3L nasal cannula. -Right-sided headache, suspicious for migraine headache versus multifactorial from hypoglycemia pressure all other medical problems and stress -Nausea secondary to uremia and end-stage renal disease continues on antiemetics, continue oral Compazine as needed, nausea has improved. -History of gastroparesis maintained on Reglan on an outpatient basis -Anemia, likely chronic with chronic kidney disease underlying iron deficiency noted. FOBT Is negative , f/u as outpatient ,we recommend patient follow-up with PCP and GI service as an outpatient, patient informed and agreed and she agrees -Leukocytosis with elevated procalcitonin level also has developed acute tracheobronchitis patient has completed course of azithromycin.procalcitonin is trending down , no more symptoms, she is off antibiotics and doing well, more antibiotic would have more harm than benefits as pt is afebrile and asymptomatic -Sinusitis , f/u with ENT outpatient -Chest pressure which appears more musculoskeletal in nature, pain is reproducible with palpation. Patient states this is from coughing. resolved no chest pain today -Hypertension uncontrolled elevated , improved with hemodialysis -Gastroesophageal reflux disease -End-stage renal disease -Seizure disorder -Hypothyroidism -Chronic pain patient continues on oral [place] as well as baclofen, methocarbamol as needed -Depression hospital course: 34-year-old female came in with complaints of shortness of breath and patient is presently on BiPAP.. Patient has history of end-stage renal disease on hemodialysis did not miss any hemodialysis as per the patient patient is found to have severe pulmonary edema and and patient is undergoing hemodialysis with removal of the 3.5 L of fluid. Patient blood pressure is high. Patient had normal ejection fraction does not have any history of heart failure , patient does not urinate much. Patient is complaining of pain in the chest because of which cardiology evaluated the patient, EKG did not show any acute ST-T wave changes. Patient was evaluated by cardiology team who cleared her for discharge. Chest pain improved. Also patient undergoing several episodes of hemodialysis with nephrology were following, currently her breathing is significantly improved and back to baseline. She denies any respiratory difficulty. She has oxygen saturation of 100% on 2 to 3 L via nasal light Patient also has been complaining from right-sided ear pain and headache and some nausea for a few days. However patient is able to tolerate diet well. No hearing difficulty no tinnitus. CT of the brain was negative for acute process. We checked ESR and was low at 10. Ear examination was unremarkable. As there is no GI or ENT service in this facility during this time patient was referred for the services as an outpatient, patient monitored for a few days with no worsening of symptoms. Also I discussed the case with the neurologist who currently evaluated the patient. Most likely patient have migraine might be contributing to her symptoms and recommend to continue with symptomatic treatment and follow-up with a neurologist as an outpatient with Dr. dong , patient informed and she agrees Psychiatrist also evaluated the patient for history of depression. Cleared her for discharge. On the day of discharge she is fully awake and oriented, no chest pain or dyspnea. No abdominal pain vomiting or diarrhea. She has some nausea but she denies diet as above. She is eating between 75 to 100% of her meals. Also her abdominal examination is soft with no tenderness. Patient also has chronic anemia and show patient was referred to GI as an outpatient. No GI service in this facility as above Patient is afebrile, patient leukocytosis is mild and chronic. Has had but trending down most likely secondary to renal disease. No evidence of infection currently and antibiotics has more risk than benefit. Patient does not need antibiotics upon discharge upon our recommendation. Patient also had fluctuating hyper and hypoglycemia, patient eventually placed on her regimen of long-acting insulin or Levemir 25 units daily and her sugar level was stabilized and controlled. No more hypo or hyperglycemia currently. Patient also can continue with insulin sliding scale Please note that patient is medically stable but prognosis is guarded Patient was cleared by all consultants, cardiology signed off the case, nephrology neurology have cleared the patient for discharge as well as psychiatry service Patient agrees to go to subacute rehab today Patient will be discharged on Cipro eardrops to the right ear with recommendation to follow-up with ENT as an outpatient Problems and management plan were discussed with the patient and he verbalized understanding and acceptance Patient was found stable and can be discharged to [facility] in definitely guarded prognosis given her multi-system problems with complications , however she needs follow-up as an outpatient. Patient was instructed to follow up with PCP Dr. Ayon within one week and patient agrees Patient was instructed to follow-up with Dr. Coronado with a neurologist in 1 week after discharge and she agrees Patient was instructed to follow-up with GI service Dr. Charles and ENT Dr. Liao in 7 to 10 days and she agrees as well Patient will benefit to follow-up with her card tape converter operator Dr. Lim/Dr. Garcia in 1 week Physical exam Gen: patient is a AAOx3, no distress CVS: S1-S2, RRR, no murmur Lungs: B/L CTA, no wheezing Abdomen: soft, no distention, no tenderness, positive bowel sounds Extremity: no leg edema or induration Time spent more than 35 minutes Patient Condition at Discharge: Serious Plan - Discharge Summary Discharge Rx Participant: No New Discharge Prescriptions: No Action Sertraline [Zoloft] 200 mg PO DAILY@0800 [place] Caps 1 cap PO HS@2100 Atorvastatin [Lipitor] 40 mg PO HS@2100 methocarbamoL [Robaxin-750] 750 mg PO QID@02,06,12,17 Ondansetron [Zofran] 4 mg PO Q8HR PRN PRN Reason: Nausea And Vomiting bisacodyL [Dulcolax] 10 mg RECTAL DAILY PRN PRN Reason: Constipation Magnesium Hydroxide [Milk of Magnesia Concentrate] 7,200 mg PO DAILY PRN PRN Reason: Constipation NIFEdipine XL [Procardia XL] 60 mg PO BID@0800,1700 Torsemide [Demadex] 40 mg PO DAILY@0800 Lidocaine 4% Patch 1 patch TOPICAL DAILY@0800 Ipratropium-Albuterol Nebulize [Duoneb 0.5 mg-3 mg/3 ml Soln] 3 ml INHALATION RT-TID PRN each PRN Reason: Shortness Of Breath Or Wheezing Metoclopramide [Reglan] 5 mg PO AC-TID tab Biotene Dry Mouth/Throat 10 ml PO BID PRN PRN Reason: DRY MOUTH/THROAT Acetaminophen [Tylenol] 650 mg PO Q4H PRN PRN Reason: Pain Or Fever > 100.5 traZODone HCL [Desyrel] 50 mg PO HS tab minoxidiL [Loniten] 2.5 mg PO DAILY tab cloNIDine HCL [Catapres] 0.3 mg PO TID Darbepoetin Artur [Aranesp] 40 mcg SQ MO HYDROcodone/APAP 7.5-325MG [[place] 7.5-325] 1 tab PO Q8HR PRN PRN Reason: Pain Labetalol [Trandate] 400 mg PO BID@0800,1700 Sevelamer [Renvela] 800 mg PO HS Levothyroxine Sodium [Synthroid] 175 mcg PO DAILY@0600 Divalproex ER [Depakote ER] 500 mg PO BID@0800,1700 Pantoprazole [Protonix] 40 mg PO DAILY@0600 Sevelamer [Renvela] 1,600 mg PO AC-TID@07,11,1630 Docusate [Colace] 100 mg PO DAILY@0800 Aspirin 81 mg PO DAILY@0800 Isosorbide Mononitrate ER [Imdur] 30 mg PO DAILY tab polyethylene glycoL 3350 [Miralax] 17 gm PO AC-LUNCH #527 gm hydrALAZINE HCL [Apresoline] 150 mg PO TID tab Baclofen [Lioresal] 10 mg PO TID PRN tab PRN Reason: Muscle Spasm Melatonin 1 mg PO HS tab ALPRAZolam [Xanax] 0.5 mg PO BID PRN #20 tab PRN Reason: Anxiety Butalb/APAP/Caff 50-325-40Mg [Fioricet 50-325-40] 1 tab PO Q4HR PRN PRN Reason: Headache Insulin Aspart (For Pump) [NovoLOG (For Pump)] 0.01 unit SQ-PUMP CONTINUOUS Insulin Glargine [Lantus Vial] 25 unit SQ HS Menthol [Biofreeze] 1 applic TOPICAL BID PRN PRN Reason: Pain Discharge Medication List Levothyroxine Sodium [Synthroid] 175 mcg PO DAILY@0600 10/22/23 [History] Sertraline [Zoloft] 200 mg PO DAILY@0800 10/22/23 [History] Atorvastatin [Lipitor] 40 mg PO HS@209912/27/23 [History] Divalproex ER [Depakote ER] 500 mg PO BID@0800,1700 12/27/23 [History] Ondansetron [Zofran] 4 mg PO Q8HR PRN 12/27/23 [History] Pantoprazole [Protonix] 40 mg PO DAILY@0612/27/23 [History] [place] Caps 1 cap PO HS@209912/27/23 [History] methocarbamoL [Robaxin-750] 750 mg PO QID@02,06,12,17 12/27/23 [History] Aspirin 81 mg PO DAILY@0802/05/24 [History] Docusate [Colace] 100 mg PO DAILY@0802/05/24 [History] Lidocaine 4% Patch 1 patch TOPICAL DAILY@0802/05/24 [History] Magnesium Hydroxide [Milk of Magnesia Concentrate] 7,200 mg PO DAILY PRN 02/05/24 [History] NIFEdipine XL [Procardia XL] 60 mg PO BID@0800,1700 02/05/24 [History] Sevelamer [Renvela] 1,600 mg PO AC-TID@07,11,1630 02/05/24 [History] Torsemide [Demadex] 40 mg PO DAILY@0800 02/05/24 [History] bisacodyL [Dulcolax] 10 mg RECTAL DAILY PRN 02/05/24 [History] Ipratropium-Albuterol Nebulize [Duoneb 0.5 mg-3 mg/3 ml Soln] 3 ml INHALATION RT-TID PRN each 02/14/24 [Rx] Isosorbide Mononitrate ER [Imdur] 30 mg PO DAILY tab 02/14/24 [Rx] Metoclopramide [Reglan] 5 mg PO AC-TID tab 02/14/24 [Rx] polyethylene glycoL 3350 [Miralax] 17 gm PO AC-LUNCH #527 gm 02/14/24 [Rx] Acetaminophen [Tylenol] 650 mg PO Q4H PRN 02/18/24 [History] Biotene Dry Mouth/Throat 10 ml PO BID PRN 02/18/24 [History] ALPRAZolam [Xanax] 0.5 mg PO BID PRN #20 tab 02/25/24 [Rx] Baclofen [Lioresal] 10 mg PO TID PRN tab 02/25/24 [Rx] Melatonin 1 mg PO HS tab 02/25/24 [Rx] hydrALAZINE HCL [Apresoline] 150 mg PO TID tab 02/25/24 [Rx] minoxidiL [Loniten] 2.5 mg PO DAILY tab 02/25/24 [Rx] traZODone HCL [Desyrel] 50 mg PO HS tab 02/25/24 [Rx] Butalb/APAP/Caff 50-325-40Mg [Fioricet 50-325-40] 1 tab PO Q4HR PRN 03/14/24 [History] Darbepoetin Artur [Aranesp] 40 mcg SQ MO 03/14/24 [History] HYDROcodone/APAP 7.5-325MG [[place] 7.5-325] 1 tab PO Q8HR PRN 03/14/24 [History] Insulin Aspart (For Pump) [NovoLOG (For Pump)] 0.01 unit SQ-PUMP CONTINUOUS 03/14/24 [History] Insulin Glargine [Lantus Vial] 25 unit SQ HS 03/14/24 [History] Labetalol [Trandate] 400 mg PO BID@0800,1700 03/14/24 [History] Menthol [Biofreeze] 1 applic TOPICAL BID PRN 03/14/24 [History] Sevelamer [Renvela] 800 mg PO HS 03/14/24 [History] cloNIDine HCL [Catapres] 0.3 mg PO TID 03/14/24 [History] Follow up Appointment(s)/Referral(s): Luis Eduardo Suarez DO [Doctor of Osteopathic Medicine] - 1 Week (ENT for your ear pain) Rambo Ayon MD [Primary Care Provider] - 1-2 days Flora Castillo MD [STAFF PHYSICIAN] - 10 Days (project structural engineer for your anemia and for your stomach pain ) Leon Dong MD [Medical Doctor] - 1 Week (Patient probably has migraine. Cannot try Imitrex or triptans because of her vascular risk factors. Consider newer medication for possible migraines like Nurtec ODT or Ubrrelvy, which ever is safe in ESRD patient.) Activity/Diet/Wound Care/Special Instructions: please follow up with ENT
[2024-03-30 16:29] LABS: Glucose,Whole Blood 75 mg/dL (70-110)
[2024-03-30 17:05] LABS: Glucose,Whole Blood 64 mg/dL (70-110)
--- NOTE | 2024-03-30 20:40 | P.CN ---
Psychiatric Consult - . Consult date: 03/30/24 Consult:: 03/30/24 20:39 Reason for consult; Evaluation and management of depression. Identifying Data: The patient is 33 years old, single, wf., who lives in [place], [place]. [facility] History of psychiatric illness: The patient noted that she has been feeling depressed. She thinks that her medications are not working. Her depressive symptomatology consists of feeling low, lack of energy, loss of interest, impaired appetite, lack of sleep, and feeling worthless. She denied being hopeless, suicidal, or homicidal. She denied any symptoms consistent with psychosis. She requested to change her medications. The patient was explained that she is on maximum dose of Zoloft. To start a different medication the Zoloft will need to be tapered and the other antidepressant will be added and titrated up. She also stated that she was on Abilify but could not take it because of being on Reglan. The patient was suggested Lamictal as an adjective to her antidepressant. She was suggested Cymbalta as an alternate to Zoloft. She was explained that Cymbalta is good for chronic pain also. Other alternates were discussed, the patient opted for Cymbalta and Lamictal. The patient noted that [facility] and would consider this cross over and addition of Lamictal as an adjunctive treatment [facility] as she being discharged today. She did not feel that she needs to be admitted to psychiatric [facility]. She stated that her depression is not that bad. She denied any symptoms of psychosis. The patient noted that her depression began at 16. She for counseling. At age 19 she admitted to the hospital for depression and suicidal behavior. She was seen as out-pt at [facility]. She has had no psychiatric hospitalizations since then. Current and past medications: Zoloft, Zyprexa, Prozac, Prazosin, Abilify Past medical history: IDDM, Kidney failure, HTN, Stroke, Seizure disorder. The patient is on dialysis. Substance abuse history: marijuana abuse. Family history of psychiatric disorder: The patient denied. MSE: The patient was alert and attentive. Orientation X3. Patient was pleasant and cooperative. Psychomotor activity was normal Speech was normal tone, quality, and quantity. Mood: depressed. Affect; Consistent with mood. SI or HI: None Thought content: normal Thought process: normal Perceptual disturbance: none Cognition: Intact Judgement- Good. Insight- Good IMP: Major Depressive Disorder, Moderate, recurrent REC: The patient needs cross over from Zoloft to Cymbalta. [facility]. She indicated that a psychiatrist comes to see her every week. Lamictal to be added to the treatment as an adjunct to Cymbalta. The patient was explained the risks/benefits and side effects of both the medications The possibility of rash/severe allergic reaction with Lamictal. The patient will [facility] and do the cross over there as she is getting discharged today Itz Hanson MD Psychiatry
--- NOTE | 2024-03-31 10:30 | P.PN ---
Subjective Progress Note Date: 03/30/24 Patient continues to complain of headache right frontal temporal region 08/24, but appears comfortable. Patient has a very flat affect. No new concerns. Patient is getting hemodialysis. Objective - Vital Signs Vital signs: Vital Signs Temp 98.0 F 03/30/24 13:22 Pulse 83 03/30/24 13:22 Resp 18 03/30/24 13:22 BP 161/99 03/30/24 13:22 Pulse Ox 100 03/30/24 13:22 FiO2 40 03/16/24 12:03 Intake & Output 03/29/24 03/30/24 03/30/24 18:59 06:59 18:59 Weight 73.4 kg Other: # Voids 3 4 - Exam Unchanged. Mental status is completely normal. Rest of the examination is unchanged. - Labs CBC & Chem 7: 03/27/24 06:10 03/27/24 06:10 Labs: Abnormal Lab Results - Last 24 Hours (Table) 03/29/24 03/29/24 03/30/24 Range/Units 16:34 21:00 02:04 POC Glucose (mg/dL) 131 H 290 H 154 H (70-110) mg/dL 03/30/24 Range/Units 05:46 POC Glucose (mg/dL) 176 H (70-110) mg/dL Assessment and Plan Assessment: * Right frontal temporal headache with light, noise sensitivity and nausea, suggestive of probable migraine. CT head showed no acute process. ESR is normal. * History of chronic visual disturbance due to diabetic retinopathy, vitreous hemorrhage. 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 * ESRD on dialysis since 04/21/2023 * Chronic Diabetes Mellitus, with his most recent A1c 6.7 on 01/17/2024. * Hypertension * Hypothyroidism Plan: * CT head, showed no acute intracranial process. Visualized paranasal sinuses, external auditory canals are clear.. ESR is normal and. * Patient states Fioricet and [place] is not helping. She feels morphine may help, but with ESRD, could create other metabolic problems. * Discussed with primary physician, and we will start Tylenol 3. * Patient probably has migraine headaches. She was recommended to follow-up with local neurologist to try medication for migraine. I would avoid triptans because of her vascular risk factors. She may be a candidate for Ubrelvy or Nurtec ODT, if safe from renal standpoint. Patient will follow-up with neurologist for management of her headache. Patient also recommended to follow-up with accounting office manager to make sure there is no ocular cause of headache. * Management of other medical conditions as per IM and other specialties on board. * Neurologically clear for discharge.
== END 2024-03-30 17:18 | DRG 133 ==
LOC: EC 03:44 → 3NCARDOBS 06:08 → 3SCARD 10:56 → 4SSUR 03-24 22:19
PROVIDERS: ADMIT Hospitalist; ATTEND Hospitalist
PROC: 5A09357 Assistance with Respiratory Ventilation, Less than 24 Consecutive Hours, Continuous Positive Airway Pressure (ICD-10-PCS; principal; 2024-03-14)
PROC: 5A1D70Z Performance of Urinary Filtration, Intermittent, Less than 6 Hours Per Day (ICD-10-PCS; 2024-03-14)
DX: J96.01 Acute respiratory failure with hypoxia (principal); I13.2 Hypertensive heart and chronic kidney disease with heart failure and with stage 5 chronic kidney disease, or end stage renal disease; I50.33 Acute on chronic diastolic (congestive) heart failure; I16.0 Hypertensive urgency; G89.4 Chronic pain syndrome; G43.909 Migraine, unspecified, not intractable, without status migrainosus; H91.91 Unspecified hearing loss, right ear; I65.23 Occlusion and stenosis of bilateral carotid arteries; J20.9 Acute bronchitis, unspecified; K21.9 Gastro-esophageal reflux disease without esophagitis; E83.9 Disorder of mineral metabolism, unspecified; E10.649 Type 1 diabetes mellitus with hypoglycemia without coma; D63.1 Anemia in chronic kidney disease; E10.319 Type 1 diabetes mellitus with unspecified diabetic retinopathy without macular edema; E10.43 Type 1 diabetes mellitus with diabetic autonomic (poly)neuropathy; Z76.82 Awaiting organ transplant status; F12.11 Cannabis abuse, in remission; Z99.2 Dependence on renal dialysis; E03.9 Hypothyroidism, unspecified; E10.42 Type 1 diabetes mellitus with diabetic polyneuropathy; I34.0 Nonrheumatic mitral (valve) insufficiency; F33.1 Major depressive disorder, recurrent, moderate; J32.9 Chronic sinusitis, unspecified; F41.9 Anxiety disorder, unspecified; K31.84 Gastroparesis; Z28.310 Unvaccinated for COVID-19; Z28.21 Immunization not carried out because of patient refusal; Z71.3 Dietary counseling and surveillance; H53.8 Other visual disturbances; Z79.4 Long term (current) use of insulin; Z87.891 Personal history of nicotine dependence; Z96.41 Presence of insulin pump (external) (internal); Z86.73 Personal history of transient ischemic attack (TIA), and cerebral infarction without residual deficits; Z79.82 Long term (current) use of aspirin; Z79.890 Hormone replacement therapy; Z79.899 Other long term (current) drug therapy; Z88.5 Allergy status to narcotic agent; Z86.19 Personal history of other infectious and parasitic diseases; H70.11 Chronic mastoiditis, right ear; R68.2 Dry mouth, unspecified
CPT/HCPCS: 36415; 70450; 71045; 80048; 80053; 81001; 82272; 82728; 83036; 83540; 83550; 83605; 83735; 83880; 84100; 84145; 84484; 85025; 85610; 85652; 85730; 86706; 86850; 86900; 86901; 86920; 87070; 87205; 87340; 87636; 90935; 93005; 94640; 94660; 94760; 96374; 96375; 99291

== ENCOUNTER 2024-04-15 23:54 | Inpatient (IN) | payer OTHER ==
--- NOTE | 2024-04-16 00:27 | ED ---
General Adult HPI - General Chief complaint: Shortness of Breath Stated complaint: SOB, hypoxic Time Seen by Provider: 04/15/24 23:57 Source: patient, EMS, RN notes reviewed, old records reviewed Mode of arrival: EMS Limitations: no limitations - History of Present Illness Initial comments: 34-year-old female with diabetes and end-stage renal disease presenting with dyspnea. Patient states she did receive hemodialysis today. She was noted by paramedics to be hypoxic in the 80s and required CPAP support during transport. She was hypertensive. She denies central chest pain. Denies cough or fever. - Related Data Home Medications Medication Instructions Recorded Confirmed Levothyroxine Sodium [Synthroid] 175 mcg PO DAILY@0600 10/22/23 03/14/24 Sertraline [Zoloft] 200 mg PO DAILY@0800 10/22/23 03/14/24 Atorvastatin [Lipitor] 40 mg PO HS@209912/27/23 03/14/24 Divalproex ER [Depakote ER] 500 mg PO BID@0800,1700 12/27/23 03/14/24 Ondansetron [Zofran] 4 mg PO Q8HR PRN 12/27/23 03/14/24 Pantoprazole [Protonix] 40 mg PO DAILY@59912/27/23 03/14/24 [place] Caps 1 cap PO HS@209912/27/23 03/14/24 methocarbamoL [Robaxin-750] 750 mg PO QID@02,06,12,17 12/27/23 03/14/24 Aspirin 81 mg PO DAILY@79902/05/24 03/14/24 Docusate [Colace] 100 mg PO DAILY@0800 02/05/24 03/14/24 Lidocaine 4% Patch 1 patch TOPICAL DAILY@0800 02/05/24 03/14/24 Magnesium Hydroxide [Milk of 7,200 mg PO DAILY PRN 02/05/24 03/14/24 Magnesia Concentrate] NIFEdipine XL [Procardia XL] 60 mg PO BID@0800,1700 02/05/24 03/14/24 Sevelamer [Renvela] 1,600 mg PO AC-TID@07,11,1630 02/05/24 03/14/24 bisacodyL [Dulcolax] 10 mg RECTAL DAILY PRN 02/05/24 03/14/24 Acetaminophen [Tylenol] 650 mg PO Q4H PRN 02/18/24 03/14/24 Biotene Dry Mouth/Throat 10 ml PO BID PRN 02/18/24 03/14/24 Butalb/APAP/Caff 50-325-40Mg 1 tab PO Q4HR PRN 03/14/24 03/14/24 [Fioricet 50-325-40] Darbepoetin Artur [Aranesp] 40 mcg SQ MO 03/14/24 03/14/24 Insulin Glargine [Lantus Vial] 25 unit SQ HS 03/14/24 03/14/24 Labetalol [Trandate] 400 mg PO BID@0800,1700 03/14/24 03/14/24 Sevelamer [Renvela] 800 mg PO HS 03/14/24 03/14/24 cloNIDine HCL [Catapres] 0.3 mg PO TID 03/14/24 03/14/24 Previous Rx's Medication Instructions Recorded Ipratropium-Albuterol Nebulize 3 ml INHALATION RT-TID PRN each 02/14/24 [Duoneb 0.5 mg-3 mg/3 ml Soln] Isosorbide Mononitrate ER [Imdur] 30 mg PO DAILY tab 02/14/24 Metoclopramide [Reglan] 5 mg PO AC-TID tab 02/14/24 polyethylene glycoL 3350 [Miralax] 17 gm PO AC-LUNCH #527 gm 02/14/24 Melatonin 1 mg PO HS tab 02/25/24 hydrALAZINE HCL [Apresoline] 150 mg PO TID tab 02/25/24 minoxidiL [Loniten] 2.5 mg PO DAILY tab 02/25/24 traZODone HCL [Desyrel] 50 mg PO HS tab 02/25/24 ALPRAZolam [Xanax] 0.5 mg PO BID PRN #4 tab 03/30/24 Acetaminophen-Codeine 300-30mg 1 each PO Q6HR PRN 3 Days #10 tab 03/30/24 [Tylenol w/codeine #3] Ciprofloxacin-Dexameth [Ciprodex 4 drops RIGHT EAR BID ml 03/30/24 Otic Susp] INSULIN ASPART (NovoLOG) [NovoLOG 0 unit SQ ACHS each 03/30/24 (formulary)] Loratadine [Claritin] 5 mg PO DAILY tab 03/30/24 Allergies Allergy/AdvReac Type Severity Reaction Status Date / Time hydromorphone HCl Allergy Anaphylaxis Verified 04/16/24 00:05 [From Dilaudid] propoxyphene Allergy Rash/Hives Verified 04/16/24 00:05 [From Darvocet-N] tramadol Allergy Anaphylaxis Verified 04/16/24 00:05 ibuprofen [From Motrin] AdvReac unable to Verified 04/16/24 00:05 take due to kidney disease venom-honey bee AdvReac passes out Verified 04/16/24 00:05 [bee venom (honey bee)] Review of Systems ROS Statement: Those systems with pertinent positive or pertinent negative responses have been documented in the HPI. ROS Other: All systems not noted in ROS Statement are negative. Past Medical History Past Medical History: Diabetes Mellitus, GERD/Reflux, Hypertension, Renal Disease, Seizure Disorder, Thyroid Disorder Additional Past Medical History / Comment(s): Neuropathy, last seizure 2020, gastroparesis, headaches with dialysis, states "fast heart rate" since giving ., receives Hemodialysis Wednesday- and Saturdays at [facility] right chest hemodialysis catheter., severe HTN. patient awaiting Kidney and Pancrease Transplant. , states sometimes she has had stroke -like symptoms but no stroke., hx of c-diff 2013. History of Any Multi-Drug Resistant Organisms: None Reported Date of last positivie culture/infection: None MDRO Source:: None Past Surgical History: Adenoidectomy, Section, Cholecystectomy, Orthopedic Surgery, Tonsillectomy Additional Past Surgical History / Comment(s): 2 KNEE SCOPES, EAR TUBES, ad ditional left knee surgery related to fracture, new port a cath jul 29, eye surgeries for diabetic retinopathy. Past Anesthesia/Blood Transfusion Reactions: Previous Problems w/ Anesthesia Additional Past Anesthesia/Blood Transfusion Reaction / Comment(s): confusion Past Psychological History: Anxiety, Depression Smoking Status: Former smoker Past Alcohol Use History: None Reported Past Drug Use History: Marijuana, Methamphetamine - Past Family History Father Family Medical History: Unable to Obtain Mother Family Medical History: No Reported History Grandfather Family Medical History: Coronary Artery Disease (CAD) Additional Family Medical History / Comment(s): Diabetes mellitus type 2 General Exam General appearance: alert, in distress Head exam: Present: atraumatic, normocephalic Eye exam: Present: normal appearance, PERRL ENT exam: Present: normal exam Neck exam: Present: normal inspection. Absent: meningismus Respiratory exam: Present: respiratory distress, rales Cardiovascular Exam: Present: regular rate, normal rhythm GI/Abdominal exam: Present: soft. Absent: distended, tenderness Extremities exam: Present: pedal edema Neurological exam: Present: alert, oriented X3 Psychiatric exam: Present: normal affect, normal mood Skin exam: Present: warm, dry, intact Course Vital Signs 04/15/24 04/16/24 04/16/24 23:58 00:05 00:07 Temperature 98.5 F Pulse Rate 108 H 99 Respiratory 24 20 Rate Blood Pressure 206/140 197/118 O2 Sat by Pulse 97 99 Oximetry Fraction of 40 Inspired Oxygen (FIO2) 04/16/24 04/16/24 04/16/24 00:39 01:05 01:43 Temperature Pulse Rate 105 H 90 96 Respiratory 20 18 20 Rate Blood Pressure 187/105 183/105 183/102 O2 Sat by Pulse 100 100 99 Oximetry Fraction of Inspired Oxygen (FIO2) 04/16/24 01:51 Temperature Pulse Rate 93 Respiratory 16 Rate Blood Pressure 185/103 O2 Sat by Pulse 99 Oximetry Fraction of Inspired Oxygen (FIO2) Medical Decision Making - Medical Decision Making Was pt. sent in by a medical professional or institution (, PA, LAST TURNER, urgent care, hospital, or alf...) When possible be specific @ -No Did you speak to anyone other than the patient for history (EMS, parent, family, police, friend...)? What history was obtained from this source @ -No Did you review nursing and triage notes (agree or disagree)? Why? @ -I reviewed and agree with nursing and triage notes Were old charts reviewed (outside hosp., previous admission, EMS record, old EKG, old radiological studies, urgent care reports/EKG's, alf records)? Report findings @ -No old charts were reviewed Differential Dyspnea: Coronary syndrome, arrhythmia, tamponade, asthma, COPD, pulmonary embolism, pneumonia, pneumothorax, pulmonary effusion, anaphylaxis, diabetic ketoacidosis, flailed chest, pulmonary contusion, diaphragmatic rupture, anemia, neuromuscular, this is not meant to be an all-inclusive list. EKG interpreted by me (3pts min.). @ -Sinus tachycardia rate of 104, [place] interval 134, QRS duration 85, QTc [address] segment elevation. X-rays interpreted by me (1pt min.). @ -[Single view chest x-ray showing pulmonary edema consistent with CHF and fluid overload CT interpreted by me (1pt min.). @ -None done U/S interpreted by me (1pt. min.). @ -None done What testing was considered but not performed or refused? (CT, X-rays, U/S, labs)? Why? @ -None What meds were considered but not given or refused? Why? @ -None Did you discuss the management of the patient with other professionals (professionals i.e. , PA, LAST TURNER, lab, RT, psych nurse, social media community manager, director of infection prevention, teacher, community service officer, manager rn case)? Give summary @ -EM Was smoking cessation discussed for >3mins.? @ -No Was critical care preformed (if so, how long)? @ -35 minutes Were there social determinants of health that impacted care today? How? (Homelessness, low income, unemployed, alcoholism, drug addiction, transportation, low edu. Level, literacy, decrease access to med. care, long-term, rehab)? @ -No Was there de-escalation of care discussed even if they declined (Discuss DNR or withdrawal of care, Hospice)? DNR status @ -No What co-morbidities impacted this encounter? (DM, HTN, Smoking, COPD, CAD, Cancer, CVA, ARF, Chemo, Hep., AIDS, mental health diagnosis, sleep apnea, morbid obesity)? @Diabetes, end-stage renal disease Was patient admitted / discharged? Hospital course, mention meds given and route, prescriptions, significant lab abnormalities, going to OR and other pertinent info. @ -34-year-old female presenting with hypoxia, respiratory distress. History of end-stage renal disease. Patient is hypoxic and hypertensive. Started on BiPAP and nitroglycerin. Patient has significant improvement in work of lola athing and hypoxia resolved with this treatment. She will be admitted with nephrology on consult for fluid overload and hypertensive urgency. Undiagnosed new problem with uncertain prognosis? @ -No Drug Therapy requiring intensive monitoring for toxicity (Heparin, Nitro, Insulin, Cardizem)? @ -No Were any procedures done? @ -No Diagnosis/symptom? @ hypoxia secondary to hypertensive urgency and fluid overload Acute, or Chronic, or Acute on Chronic? @ -Acute Uncomplicated (without systemic symptoms) or Complicated (systemic symptoms)? @ -Complicated Side effects of treatment? @ -No Exacerbation, Progression, or Severe Exacerbation? @ -No Poses a threat to life or bodily function? How? (Chest pain, USA, NC, pneumonia, PE, COPD, DKA, ARF, appy, cholecystitis, CVA, Diverticulitis, Homicidal, Suicidal, threat to staff... and all critical care pts) @ -[Yes, respiratory failure, hypoxia - Lab Data Result diagrams: 04/16/24 00:00 04/16/24 00:00 Lab Results 04/16/24 04/16/24 04/16/24 Range/Units 00:00 00:00 00:00 WBC 11.8 H (3.8-10.6) k/uL RBC 2.99 L (3.80-5.40) m/uL Hgb 9.4 L D (11.4-16.0) gm/dL Hct 29.3 L (34.0-46.0) % MCV 98.0 (80.0-100.0) fL MCH 31.4 (25.0-35.0) pg MCHC 32.0 (31.0-37.0) g/dL RDW 15.6 H (11.5-15.5) % Plt Count 401 (150-450) k/uL MPV 7.8 Neutrophils % 67 % Lymphocytes % 11 % Monocytes % 9 % Eosinophils % 12 % Basophils % 1 % Neutrophils # 7.9 H (1.3-7.7) k/uL Lymphocytes # 1.3 (1.0-4.8) k/uL Monocytes # 1.0 (0-1.0) k/uL Eosinophils # 1.4 H (0-0.7) k/uL Basophils # 0.1 (0-0.2) k/uL Macrocytosis Slight PT 11.6 (10.0-12.5) sec INR 1.1 (<1.2) APTT 26.0 (22.0-30.0) sec VBG pH (7.31-7.41) VBG pCO2 (37-51) mmHg VBG HCO3 (24-28) mmol/L Sodium 132 L (137-145) mmol/L Potassium 3.7 (3.5-5.1) mmol/L Chloride 91 L (98-107) mmol/L Carbon Dioxide 30 (22-30) mmol/L Anion Gap 11 mmol/L BUN 17 (7-17) mg/dL Creatinine 2.85 H (0.52-1.04) mg/dL Est GFR (CKD-EPI)AfAm 24 (>60 ml/min/1.73 sqM) Est GFR (CKD-EPI)NonAf 21 (>60 ml/min/1.73 sqM) Glucose 334 H (74-99) mg/dL Calcium 9.3 (8.4-10.2) mg/dL Total Bilirubin 0.7 (0.2-1.3) mg/dL AST 25 (14-36) U/L ALT 31 (4-34) U/L Alkaline Phosphatase 134 H (38-126) U/L Troponin I (0.000-0.034) ng/mL NT-Pro-B Natriuret Pep 79136 pg/mL Total Protein 7.0 (6.3-8.2) g/dL Albumin 4.4 (3.5-5.0) g/dL 04/16/24 04/16/24 Range/Units 00:00 00:00 WBC (3.8-10.6) k/uL RBC (3.80-5.40) m/uL Hgb (11.4-16.0) gm/dL Hct (34.0-46.0) % MCV (80.0-100.0) fL MCH (25.0-35.0) pg MCHC (31.0-37.0) g/dL RDW (11.5-15.5) % Plt Count (150-450) k/uL MPV Neutrophils % % Lymphocytes % % Monocytes % % Eosinophils % % Basophils % % Neutrophils # (1.3-7.7) k/uL Lymphocytes # (1.0-4.8) k/uL Monocytes # (0-1.0) k/uL Eosinophils # (0-0.7) k/uL Basophils # (0-0.2) k/uL Macrocytosis PT (10.0-12.5) sec INR (<1.2) APTT (22.0-30.0) sec VBG pH 7.45 H (7.31-7.41) VBG pCO2 51 (37-51) mmHg VBG HCO3 35 H (24-28) mmol/L Sodium (137-145) mmol/L Potassium (3.5-5.1) mmol/L Chloride (98-107) mmol/L Carbon Dioxide (22-30) mmol/L Anion Gap mmol/L BUN (7-17) mg/dL Creatinine (0.52-1.04) mg/dL Est GFR (CKD-EPI)AfAm (>60 ml/min/1.73 sqM) Est GFR (CKD-EPI)NonAf (>60 ml/min/1.73 sqM) Glucose (74-99) mg/dL Calcium (8.4-10.2) mg/dL Total Bilirubin (0.2-1.3) mg/dL AST (14-36) U/L ALT (4-34) U/L Alkaline Phosphatase (38-126) U/L Troponin I <0.012 (0.000-0.034) ng/mL NT-Pro-B Natriuret Pep pg/mL Total Protein (6.3-8.2) g/dL Albumin (3.5-5.0) g/dL Critical Care Time Critical Care Time: Yes Total Critical Care Time: 35 Disposition Clinical Impression: Pulmonary edema, Acute pulmonary edema, ESRD (end stage renal disease), BiPAP (biphasic positive airway pressure) dependence Disposition: ADMITTED IP TO THIS [facility] Condition: Stable Is patient prescribed a controlled substance at d/c from ED?: No Referrals: None,Stated [Primary Care Provider] - 1-2 days Time of Disposition: 02:02
[2024-04-16 00:31] LABS: Basophils # (A) 0.1 k/uL (0-0.2); Basophils % (A) 1 %; Eosinophils # (A) 1.4 k/uL (0-0.7); Eosinophils % (A) 12 %; HCT 29.3 % (34.0-46.0); Lymphocytes # (A) 1.3 k/uL (1.0-4.8); Lymphocytes % (A) 11 %; MCH 31.4 pg (25.0-35.0); Macrocytosis Slight; Mean Platelet Volume 7.8; Monocytes % (A) 9 %; Neutrophils # (A) 7.9 k/uL (1.3-7.7); Neutrophils % (A) 67 %; Platelet Count 401 k/uL (150-450); RBC 2.99 m/uL (3.80-5.40); RDW 15.6 % (11.5-15.5); WBC 11.8 k/uL (3.8-10.6)
[2024-04-16 00:32] LABS: HGB 9.4 gm/dL (11.4-16.0)
[2024-04-16 00:38] LABS: VBG PH 7.45 (7.31-7.41)
[2024-04-16 00:47] LABS: INR 1.1 (<1.2); Prothrombin Time 11.6 sec (10.0-12.5)
[2024-04-16] MEDS: NITROGLYCERIN-D5W PMX 50 MG in DEXTROSE/WATER 1 250ML.BAG IV ONE (00:47)
[2024-04-16 00:48] LABS: ALT 31 U/L (4-34); AST 25 U/L (14-36); African American GFR (CKD) 24 (>60 ml/min/1.73 sqM); Albumin 4.4 g/dL (3.5-5.0); Alkaline Phosphatase 134 U/L (38-126); Anion Gap 11 mmol/L; Blood Urea Nitrogen 17 mg/dL (7-17); Calcium 9.3 mg/dL (8.4-10.2); Carbon Dioxide 30 mmol/L (22-30); Chloride 91 mmol/L (98-107); Glucose 334 mg/dL (74-99); Non-African American GFR(CKD) 21 (>60 ml/min/1.73 sqM); Potassium 3.7 mmol/L (3.5-5.1); Sodium 132 mmol/L (137-145); Total Bilirubin 0.7 mg/dL (0.2-1.3)
[2024-04-16 00:56] LABS: NT-Pro-B-Type Natriuretic Pept 23100 pg/mL
[2024-04-16] MEDS: FUROSEMIDE 10 MG/ML 4 ML VIAL IV STA (01:28)
[2024-04-16] MEDS: MORPHINE SULFATE 4 MG/ML SYRINGE IVP STA (01:28)
[2024-04-16] MEDS: ONDANSETRON 4 MG/2 ML VIAL IVP STA (01:41)
[2024-04-16] MEDS ORDERED: NALOXONE 0.4 MG/ML 1 ML VIAL IV PRN (01:57)
--- NOTE | 2024-04-16 02:01 | XR ---
EXAM: XR Chest, 1 View CLINICAL HISTORY: ITS.REASON XR Reason: edison TECHNIQUE: Frontal view of the chest. COMPARISON: No relevant prior studies available. IMPRESSION: Right-sided central line in place. Increased bilateral interstitial markings.
[2024-04-16] MEDS: cloNIDine HCL 0.1 MG TAB PO SCH (09:13)
[2024-04-16] MEDS: ACETAMINOPHEN TAB 325 MG TAB PO PRN (09:13)
[2024-04-16] MEDS: hydrALAZINE HCL 50 MG TAB PO SCH (09:14)
[2024-04-16] MEDS ORDERED: bisacodyL 10 MG SUPP RECTAL PRN (09:22)
[2024-04-16] MEDS ORDERED: DRY MOUTH SPRAY 44.3 SPRAY/44.3 ML SPRAY MUCOUS MEM PRN (09:22)
[2024-04-16] MEDS ORDERED: MAGNESIUM HYDROXIDE 2,400 MG/30 ML CUP PO PRN (09:22)
[2024-04-16] MEDS ORDERED: BUTALB/APAP/CAFF 50-325-40MG TAB PO PRN (09:22)
[2024-04-16] MEDS: LABETALOL 200 MG TAB PO SCH (09:25)
--- NOTE | 2024-04-16 10:14 | P.NPCON ---
History of Present Illness - Reason for Consult end stage renal disease - History of Present Illness patient is a 34-year-old female with end-stage renal disease maintained on hemodialysis on Wednesday schedule with extra treatment either on Wednesday or Wednesday. Patient is admitted to the hospital with shortness of breath. She did have about 2-1/2 L of ultrafiltration yesterday with hemodialysis. Patient states that she did not take her blood pressure meds and blood pressure was noted to be significantly elevated above 200 range for systolic blood pressure. Patient also complained of pain in the abdomen. Patient had been on BiPAP but is currently down to 3 L nasal cannula. Shortness of breath has improved with improving blood pressure. Review of Systems As per HPI Past Medical History Past Medical History: Diabetes Mellitus, GERD/Reflux, Hypertension, Renal Disease, Seizure Disorder, Thyroid Disorder Additional Past Medical History / Comment(s): Neuropathy, last seizure 2020, gastroparesis, headaches with dialysis, states "fast heart rate" since giving ., receives Hemodialysis Wednesday- and Saturdays at [facility]., right chest hemodialysis catheter., severe HTN. patient awaiting Kidney and Pancrease Transplant. , states sometimes she has had stroke -like symptoms but no stroke., hx of c-diff 2013. History of Any Multi-Drug Resistant Organisms: None Reported Date of last positivie culture/infection: None MDRO Source:: None Past Surgical History: Adenoidectomy, Section, Cholecystectomy, Orthopedic Surgery, Tonsillectomy Additional Past Surgical History / Comment(s): 2 KNEE SCOPES, EAR TUBES, additional left knee surgery related to fracture, new port a cath jul 29, eye surgeries for diabetic retinopathy. Past Anesthesia/Blood Transfusion Reactions: Previous Problems w/ Anesthesia Additional Past Anesthesia/Blood Transfusion Reaction / Comment(s): confusion Past Psychological History: Anxiety, Depression Smoking Status: Former smoker Past Alcohol Use History: None Reported Past Drug Use History: Marijuana, Methamphetamine - Past Family History Father Family Medical History: Unable to Obtain Mother Family Medical History: No Reported History Grandfather Family Medical History: Coronary Artery Disease (CAD) Additional Family Medical History / Comment(s): Diabetes mellitus type 2 Medications and Allergies Home Medications Medication Instructions Recorded Confirmed Type Levothyroxine Sodium [Synthroid] 175 mcg PO DAILY@0600 10/22/23 04/16/24 History Sertraline [Zoloft] 200 mg PO DAILY@0800 10/22/23 04/16/24 History Atorvastatin [Lipitor] 40 mg PO HS@209912/27/23 04/16/24 History Divalproex ER [Depakote ER] 500 mg PO BID@0800,1700 12/27/23 04/16/24 History Ondansetron [Zofran] 4 mg PO Q8HR PRN 12/27/23 04/16/24 History Pantoprazole [Protonix] 40 mg PO DAILY@0600 12/27/23 04/16/24 History [place] Caps 1 cap PO HS@209912/27/23 04/16/24 History methocarbamoL [Robaxin-750] 750 mg PO QID@02,,,12/27/23 04/16/24 History Aspirin 81 mg PO DAILY@0800 02/05/24 04/16/24 History Docusate [Colace] 100 mg PO DAILY@0800 02/05/24 04/16/24 History Lidocaine 4% Patch 1 patch TOPICAL DAILY@0802/05/24 04/16/24 History Magnesium Hydroxide [Milk of 7,200 mg PO DAILY PRN 02/05/24 04/16/24 History Magnesia Concentrate] NIFEdipine XL [Procardia XL] 60 mg PO BID@0800,1700 02/05/24 04/16/24 History Sevelamer [Renvela] 1,600 mg PO AC-TID@07,11,1630 02/05/24 04/16/24 History bisacodyL [Dulcolax] 10 mg RECTAL DAILY PRN 02/05/24 04/16/24 History Ipratropium-Albuterol Nebulize 3 ml INHALATION RT-TID PRN each 02/14/24 04/16/24 Rx [Duoneb 0.5 mg-3 mg/3 ml Soln] Isosorbide Mononitrate ER [Imdur] 30 mg PO DAILY tab 02/14/24 04/16/24 Rx Metoclopramide [Reglan] 5 mg PO AC-TID tab 02/14/24 04/16/24 Rx polyethylene glycoL 3350 [Miralax] 17 gm PO AC-LUNCH #527 gm 02/14/24 04/16/24 Rx Acetaminophen [Tylenol] 650 mg PO Q4H PRN 02/18/24 04/16/24 History Biotene Dry Mouth/Throat 10 ml PO BID PRN 02/18/24 04/16/24 History Melatonin 1 mg PO HS tab 02/25/24 04/16/24 Rx hydrALAZINE HCL [Apresoline] 150 mg PO TID tab 02/25/24 04/16/24 Rx minoxidiL [Loniten] 2.5 mg PO DAILY tab 02/25/24 04/16/24 Rx traZODone HCL [Desyrel] 50 mg PO HS tab 02/25/24 04/16/24 Rx Butalb/APAP/Caff 50-325-40Mg 1 tab PO Q4HR PRN 03/14/24 04/16/24 History [Fioricet 50-325-40] Darbepoetin Artur [Aranesp] 40 mcg SQ MO 03/14/24 04/16/24 History Insulin Glargine [Lantus Vial] 25 unit SQ HS 03/14/24 04/16/24 History Labetalol [Trandate] 400 mg PO BID@0800,1700 03/14/24 04/16/24 History Sevelamer [Renvela] 800 mg PO HS 03/14/24 04/16/24 History cloNIDine HCL [Catapres] 0.3 mg PO TID 03/14/24 04/16/24 History ALPRAZolam [Xanax] 0.5 mg PO BID PRN #4 tab 03/30/24 04/16/24 Rx Ciprofloxacin-Dexameth [Ciprodex 4 drops RIGHT EAR BID ml 03/30/24 04/16/24 Rx Otic Susp] Loratadine [Claritin] 5 mg PO DAILY tab 03/30/24 04/16/24 Rx Acetaminophen-Codeine 300-30mg 1 tab PO Q6HR PRN 04/16/24 04/16/24 History [Tylenol w/codeine #3] INSULIN ASPART (NovoLOG) [NovoLOG See Protocol SQ ACHS 04/16/24 04/16/24 History (formulary)] Allergies Allergy/AdvReac Type Severity Reaction Status Date / Time hydromorphone HCl Allergy Anaphylaxis Verified 04/16/24 08:41 [From Dilaudid] propoxyphene Allergy Rash/Hives Verified 04/16/24 08:41 [From Darvocet-N] tramadol Allergy Anaphylaxis Verified 04/16/24 08:41 ibuprofen [From Motrin] AdvReac unable to Verified 04/16/24 08:41 take due to kidney disease venom-honey bee AdvReac passes out Verified 04/16/24 08:41 [bee venom (honey bee)] Physical Exam Vitals: Vital Signs Temp Pulse Pulse Resp BP BP Pulse Ox 04/16/24 08:30 98 04/16/24 08:00 92 14 190/107 97 04/16/24 07:42 187/107 04/16/24 07:00 96 12 184/112 99 04/16/24 04:40 04/16/24 03:50 82 18 180/101 100 04/16/24 02:00 98 19 97 04/16/24 01:51 93 16 185/103 99 04/16/24 01:43 96 20 183/102 99 04/16/24 01:05 90 18 183/105 100 04/16/24 00:39 105 H 20 187/105 100 04/16/24 00:15 24 04/16/24 00:07 99 20 197/118 99 04/16/24 00:05 04/15/24 23:58 98.5 F 108 H 24 206/140 97 FiO2 04/16/24 08:30 04/16/24 08:00 40 04/16/24 07:42 04/16/24 07:00 04/16/24 04:40 40 04/16/24 03:50 04/16/24 02:00 04/16/24 01:51 04/16/24 01:43 04/16/24 01:05 04/16/24 00:39 04/16/24 00:15 04/16/24 00:07 04/16/24 00:05 40 04/15/24 23:58 Intake and Output 04/15/24 04/16/24 04/16/24 22:59 06:59 14:59 Intake Total 4.875 55.35 Balance 4.875 55.35 Intake: Intake, IV Titration 4.875 55.35 Amount Nitroglycerin-D5w Pmx 50 4.875 55.35 mg In Dextrose/Water 1 250ml.bag @ 5 MCG/MIN 1.5 mls/hr IV .Q24H ONE Rx#: [id number] Other: Weight 72.575 kg patient is awake, comfortable, no acute distress. 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 End-stage renal disease on hemodialysis on a Wednesday schedule with extra treatments either on Wednesday or Wednesday as outpatient. 2. Volume overload 3. Acute hypoxic respiratory failure currently improved. We will continue to monitor respiratory status and plan for hemodialysis in a.m. If respiratory status deteriorates patient will be dialyzed tonight. 4. Hypertensive urgency. Patient had not received antihypertensive medications yesterday. She has just taken her oral meds and the nitro drip will be weaned down. 5. CK D mineral bone disorder Plan: hemodialysis in a.m. If patient's respiratory status deteriorates she will be dialyzed tonight. Resume oral antihypertensive medications continue with selma Thank you for the consultation. We will continue to follow the patient with you during her hospitalization.
[2024-04-16] MEDS: minoxidiL 2.5 MG TAB PO SCH (11:25)
[2024-04-16] MEDS: methocarbamoL 750 MG TAB PO SCH (11:25)
--- NOTE | 2024-04-16 11:27 | P.HPIM ---
History of Present Illness Patient is a 34-year-old female with end-stage renal disease on hemodialysis Wednesday and Wednesday schedule, had hemodialysis yesterday came in because shortness of breath found to have pulm edema patient is also found to have highly elevated blood pressures above 200 patient is admitted for hypertensive emergency because of pulmonary edema. Patient respiratory status improved even without dialysis today after heparin patient was under control patient was started on nitroglycerin. Patient was on multiple medications which are which she did not take yesterday as she does not have those medications. Patient was unable to get to the pharmacy to get those medications after discharge from rehabilitation place. Patient denies any fever chills patient denies nausea vomiting cough. Patient with multiple medications for hypertension including minoxidil hydralazine, Imdur, nifedipine, clonidine all of which were resumed patient is complaining of headache because of nitroglycerin which will be discontinued at this time patient blood pressure is well-controlled at this time. Patient was on BiPAP presently on 3 L of oxygen which is her baseline patient does use 2 L of oxygen at home for COPD REVIEW OF SYSTEMS: CONSTITUTIONAL: No fever, no malaise, no fatigue. HEENT: No recent visual problems or hearing problems. Denied any sore throat. CARDIOVASCULAR: No chest pain, no palpitations, no syncope. PULMONARY: no hemoptysis. GASTROINTESTINAL: No diarrhea, no nausea, no vomiting, no abdominal pain. NEUROLOGICAL: No headaches, no weakness, no numbness. HEMATOLOGICAL: Denies any bleeding or petechiae. GENITOURINARY: Denies any burning micturition, frequency, or urgency. MUSCULOSKELETAL/RHEUMATOLOGICAL: Denies any joint pain, swelling, or any muscle pain. ENDOCRINE: Denies any polyuria or polydipsia. The rest of the 14-point review of systems is negative. PHYSICAL EXAMINATION: GENERAL: The patient is alert and oriented x3, not in any acute distress. Well developed, well nourished. HEENT: Pupils are round and equally reacting to light. EOMI. No scleral icterus. No conjunctival pallor. Normocephalic, atraumatic. No pharyngeal erythema. No thyromegaly. CARDIOVASCULAR: S1 and S2 present. No murmurs, rubs, or gallops. PULMONARY: Chest is clear to auscultation, no wheezing or crackles. ABDOMEN: Soft, nontender, nondistended, normoactive bowel sounds. No palpable organomegaly. MUSCULOSKELETAL: No joint swelling or deformity. EXTREMITIES: No cyanosis, clubbing, or pedal edema. NEUROLOGICAL: Gross neurological examination did not reveal any focal deficits. SKIN: No rashes. Assessment and plan -Shortness of breath secondary to volume load from end-stage renal disease and hypertensive urgency. Patient blood pressure is fairly controlled management as mentioned above stop nitroglycerin patient was resumed on her home medications. Patient missed her medications unable to get medications from the pharmacy. -Hypertensive emergency: Management as mentioned above -End-stage renal disease received hemodialysis yesterday nephrology evaluated patient not planning on any hemodialysis today unless her respiratory status worsen patient is on 3 L saturating at 89% at this time-acute hypoxic respiratory failure secondary to pulm edema -Type 2 diabetes mellitus will be resumed on home regimen monitor blood sugars -Seizure disorder -Hypothyroidism -Gastroesophageal reflux disease Patient mentioned chronic problems patient will be resumed on appropriate home medications DVT prophylaxis: Subcutaneous heparin Past Medical History Past Medical History: Diabetes Mellitus, GERD/Reflux, Hypertension, Renal Disease, Seizure Disorder, Thyroid Disorder Additional Past Medical History / Comment(s): Neuropathy, last seizure 2020, gastroparesis, headaches with dialysis, states "fast heart rate" since giving ., receives Hemodialysis Wednesday- and Saturdays at [facility]., right chest hemodialysis catheter., severe HTN. patient awaiting Kidney and Pancrease Transplant. , states sometimes she has had stroke -like symptoms but no stroke., hx of c-diff 2013. History of Any Multi-Drug Resistant Organisms: None Reported Date of last positivie culture/infection: None MDRO Source:: None Past Surgical History: Adenoidectomy, Section, Cholecystectomy, Orthopedic Surgery, Tonsillectomy Additional Past Surgical History / Comment(s): 2 KNEE SCOPES, EAR TUBES, additional left knee surgery related to fracture, new port a cath jul 29, eye surgeries for diabetic retinopathy. Past Anesthesia/Blood Transfusion Reactions: Previous Problems w/ Anesthesia Additional Past Anesthesia/Blood Transfusion Reaction / Comment(s): confusion Past Psychological History: Anxiety, Depression Smoking Status: Former smoker Past Alcohol Use History: None Reported Past Drug Use History: Marijuana, Methamphetamine - Past Family History Father Family Medical History: Unable to Obtain Mother Family Medical History: No Reported History Grandfather Family Medical History: Coronary Artery Disease (CAD) Additional Family Medical History / Comment(s): Diabetes mellitus type 2 Medications and Allergies Home Medications Medication Instructions Recorded Confirmed Type Levothyroxine Sodium [Synthroid] 175 mcg PO DAILY@0600 10/22/23 04/16/24 History Sertraline [Zoloft] 200 mg PO DAILY@0800 10/22/23 04/16/24 History Atorvastatin [Lipitor] 40 mg PO HS@2100 12/27/23 04/16/24 History Divalproex ER [Depakote ER] 500 mg PO BID@0800,1700 12/27/23 04/16/24 History Ondansetron [Zofran] 4 mg PO Q8HR PRN 12/27/23 04/16/24 History Pantoprazole [Protonix] 40 mg PO DAILY@00 12/27/23 04/16/24 History [place] Caps 1 cap PO HS@209912/27/23 04/16/24 History methocarbamoL [Robaxin-750] 750 mg PO QID@02,06,12,12/27/23 04/16/24 History Aspirin 81 mg PO DAILY@0800 02/05/24 04/16/24 History Docusate [Colace] 100 mg PO DAILY@0800 02/05/24 04/16/24 History Lidocaine 4% Patch 1 patch TOPICAL DAILY@0800 02/05/24 04/16/24 History Magnesium Hydroxide [Milk of 7,200 mg PO DAILY PRN 02/05/24 04/16/24 History Magnesia Concentrate] NIFEdipine XL [Procardia XL] 60 mg PO BID@0800,1700 02/05/24 04/16/24 History Sevelamer [Renvela] 1,600 mg PO AC-TID@07,11,1630 02/05/24 04/16/24 History bisacodyL [Dulcolax] 10 mg RECTAL DAILY PRN 02/05/24 04/16/24 History Ipratropium-Albuterol Nebulize 3 ml INHALATION RT-TID PRN each 02/14/24 04/16/24 Rx [Duoneb 0.5 mg-3 mg/3 ml Soln] Isosorbide Mononitrate ER [Imdur] 30 mg PO DAILY tab 02/14/24 04/16/24 Rx Metoclopramide [Reglan] 5 mg PO AC-TID tab 02/14/24 04/16/24 Rx polyethylene glycoL 3350 [Miralax] 17 gm PO AC-LUNCH #527 gm 02/14/24 04/16/24 Rx Acetaminophen [Tylenol] 650 mg PO Q4H PRN 02/18/24 04/16/24 History Biotene Dry Mouth/Throat 10 ml PO BID PRN 02/18/24 04/16/24 History Melatonin 1 mg PO HS tab 02/25/24 04/16/24 Rx hydrALAZINE HCL [Apresoline] 150 mg PO TID tab 02/25/24 04/16/24 Rx minoxidiL [Loniten] 2.5 mg PO DAILY tab 02/25/24 04/16/24 Rx traZODone HCL [Desyrel] 50 mg PO HS tab 02/25/24 04/16/24 Rx Butalb/APAP/Caff 50-325-40Mg 1 tab PO Q4HR PRN 03/14/24 04/16/24 History [Fioricet 50-325-40] Darbepoetin Artur [Aranesp] 40 mcg SQ MO 03/14/24 04/16/24 History Insulin Glargine [Lantus Vial] 25 unit SQ HS 03/14/24 04/16/24 History Labetalol [Trandate] 400 mg PO BID@0800,1700 03/14/24 04/16/24 History Sevelamer [Renvela] 800 mg PO HS 03/14/24 04/16/24 History cloNIDine HCL [Catapres] 0.3 mg PO TID 03/14/24 04/16/24 History ALPRAZolam [Xanax] 0.5 mg PO BID PRN #4 tab 03/30/24 04/16/24 Rx Ciprofloxacin-Dexameth [Ciprodex 4 drops RIGHT EAR BID ml 03/30/24 04/16/24 Rx Otic Susp] Loratadine [Claritin] 5 mg PO DAILY tab 03/30/24 04/16/24 Rx Acetaminophen-Codeine 300-30mg 1 tab PO Q6HR PRN 04/16/24 04/16/24 History [Tylenol w/codeine #3] INSULIN ASPART (NovoLOG) [NovoLOG See Protocol SQ ACHS 04/16/24 04/16/24 History (formulary)] Allergies Allergy/AdvReac Type Severity Reaction Status Date / Time hydromorphone HCl Allergy Anaphylaxis Verified 04/16/24 08:41 [From Dilaudid] propoxyphene Allergy Rash/Hives Verified 04/16/24 08:41 [From Darvocet-N] tramadol Allergy Anaphylaxis Verified 04/16/24 08:41 ibuprofen [From Motrin] AdvReac unable to Verified 04/16/24 08:41 take due to kidney disease venom-honey bee AdvReac passes out Verified 04/16/24 08:41 [bee venom (honey bee)] Physical Exam Vitals: Vital Signs Temp Pulse Pulse Resp BP BP Pulse Ox 04/16/24 10:30 96 16 176/94 96 04/16/24 10:15 101 H 14 172/98 97 04/16/24 10:00 89 15 189/105 04/16/24 09:45 93 13 183/108 100 04/16/24 09:30 101 H 22 181/106 96 04/16/24 09:15 95 14 185/107 99 04/16/24 09:06 15 04/16/24 08:30 98 04/16/24 08:00 92 14 190/107 97 04/16/24 07:42 187/107 04/16/24 07:00 96 12 184/112 99 04/16/24 04:40 04/16/24 03:50 82 18 180/101 100 04/16/24 02:00 98 19 97 04/16/24 01:51 93 16 185/103 99 04/16/24 01:43 96 20 183/102 99 04/16/24 01:05 90 18 183/105 100 04/16/24 00:39 105 H 20 187/105 100 04/16/24 00:15 24 04/16/24 00:07 99 20 197/118 99 04/16/24 00:05 04/15/24 23:58 98.5 F 108 H 24 206/140 97 FiO2 04/16/24 10:30 04/16/24 10:15 04/16/24 10:00 04/16/24 09:45 04/16/24 09:30 04/16/24 09:15 06/02/24 09:06 04/16/24 08:30 04/16/24 08:00 40 04/16/24 07:42 04/16/24 07:00 04/16/24 04:40 40 04/16/24 03:50 04/16/24 02:00 04/16/24 01:51 04/16/24 01:43 04/16/24 01:05 04/16/24 00:39 04/16/24 00:15 04/16/24 00:07 04/16/24 00:05 40 04/15/24 23:58 Intake and Output 04/15/24 04/16/24 04/16/24 22:59 06:59 14:59 Intake Total 4.875 85.075 Balance 4.875 85.075 Intake: Intake, IV Titration 4.875 85.075 Amount Nitroglycerin-D5w Pmx 50 4.875 85.075 mg In Dextrose/Water 1 250ml.bag @ 5 MCG/MIN 1.5 mls/hr IV .Q24H ONE Rx#: [id number] Other: Weight 72.575 kg Results CBC & Chem 7: 04/16/24 00:00 04/16/24 00:00 Labs: Abnormal Lab Results - Last 24 Hours (Table) 04/16/24 04/16/24 04/16/24 Range/Units 00:00 00:00 00:00 WBC 11.8 H (3.8-10.6) k/uL RBC 2.99 L (3.80-5.40) m/uL Hgb 9.4 L D (11.4-16.0) gm/dL Hct 29.3 L (34.0-46.0) % RDW 15.6 H (11.5-15.5) % Neutrophils # 7.9 H (1.3-7.7) k/uL Eosinophils # 1.4 H (0-0.7) k/uL VBG pH 7.45 H (7.31-7.41) VBG HCO3 35 H (24-28) mmol/L Sodium 132 L (137-145) mmol/L Chloride 91 L (98-107) mmol/L Creatinine 2.85 H (0.52-1.04) mg/dL Glucose 334 H (74-99) mg/dL Alkaline Phosphatase 134 H (38-126) U/L
[2024-04-16] MEDS: polyethylene glycoL 3350 17 GM POWD.PACK PO SCH (11:52)
[2024-04-16] MEDS: SEVELAMER 800 MG TAB PO SCH ×2 (11:59→16:16)
[2024-04-16] MEDS: IPRATROPIUM-ALBUTEROL 3 ML NEB INHALATION PRN (12:02)
[2024-04-16] MEDS ORDERED: DEXTROSE 50% SYRINGE 50 ML IVP PRN ×2 (12:36)
[2024-04-16] MEDS: Acetaminophen-Codeine 300-30mg TAB PO PRN (12:42)
[2024-04-16 12:49] LABS: Glucose,Whole Blood 230 mg/dL (70-110)
[2024-04-16] MEDS: INSULIN ASPART (NovoLOG) 100 UNIT/ML VIAL SQ SCH (12:52)
[2024-04-16] MEDS: DIVALPROEX ER 500 MG TAB.ER.24H PO SCH (16:16)
[2024-04-16 17:19] LABS: Glucose,Whole Blood 334 mg/dL (70-110)
[2024-04-16] MEDS: hydrALAZINE HCL 20 MG/ML 1 ML VIAL IVP PRN (17:55)
[2024-04-16 20:36] LABS: Glucose,Whole Blood 189 mg/dL (70-110)
[2024-04-16] MEDS: MELATONIN 1 MG TAB PO SCH (21:49)
[2024-04-16] MEDS: HEPARIN SODIUM,PORCINE 5,000 UNIT/ML 1 ML VIAL SQ SCH (21:49)
[2024-04-16] MEDS: BACLOFEN 10 MG TAB PO PRN (21:50)
[2024-04-16] MEDS: ALPRAZolam 0.5 MG TAB PO PRN (21:50)
[2024-04-16] MEDS: FOLIC ACID-VIT B COMPLEX-VIT C 1 CAP PO SCH (21:50)
[2024-04-16] MEDS: ATORVASTATIN 40 MG TAB PO SCH (21:51)
[2024-04-16] MEDS: traZODone HCL 50 MG TAB PO SCH (21:57)
[2024-04-16] MEDS: ONDANSETRON 4 MG/2 ML VIAL IVP PRN (22:05)
[2024-04-16] MEDS: CIPROFLOXACIN-DEXAMETH 0.3-0.1% DROPS 7.5 ML BTL RIGHT EAR SCH (22:17)
[2024-04-17 00:10] LABS: Glucose,Whole Blood 156 mg/dL (70-110)
[2024-04-17 06:22] LABS: Glucose,Whole Blood 210 mg/dL (70-110)
[2024-04-17] MEDS: PANTOPRAZOLE 40 MG TABLET PO SCH (06:33)
[2024-04-17] MEDS: ONDANSETRON 4 MG TAB PO PRN (06:33)
[2024-04-17] MEDS: LEVOTHYROXINE 88 MCG TAB PO SCH (06:33)
[2024-04-17] MEDS: LORATADINE 10 MG TAB PO SCH (08:10)
[2024-04-17] MEDS: DOCUSATE 100 MG CAP PO SCH (08:12)
[2024-04-17] MEDS: ASPIRIN 81 MG PO SCH (08:12)
[2024-04-17] MEDS: ISOSORBIDE MONONITRATE ER 30 MG TAB.ER.24H PO SCH (08:12)
[2024-04-17] MEDS: SERTRALINE 100 MG TAB PO SCH (08:12)
[2024-04-17] MEDS: LIDOCAINE 4% PATCH TOPICAL SCH (08:16)
[2024-04-17 08:58] LABS: African American GFR (CKD) 12 (>60 ml/min/1.73 sqM); Anion Gap 7 mmol/L; Blood Urea Nitrogen 29 mg/dL (7-17); Calcium 9.7 mg/dL (8.4-10.2); Carbon Dioxide 33 mmol/L (22-30); Chloride 94 mmol/L (98-107); Glucose 169 mg/dL (74-99); Non-African American GFR(CKD) 10 (>60 ml/min/1.73 sqM); Potassium 4.1 mmol/L (3.5-5.1); Sodium 134 mmol/L (137-145)
[2024-04-17 09:22] LABS: Anisocytosis Slight; HCT 28.9 % (34.0-46.0); HGB 8.7 gm/dL (11.4-16.0); Hypochromasia Marked; MCH 31.5 pg (25.0-35.0); MCHC 30.2 g/dL (31.0-37.0); Macrocytosis Moderate; Mean Platelet Volume 7.8; Platelet Count 336 k/uL (150-450); RBC 2.77 m/uL (3.80-5.40); RDW 16.4 % (11.5-15.5); WBC 13.9 k/uL (3.8-10.6)
[2024-04-17 09:26] LABS: MCV 104.3 fL (80.0-100.0)
--- NOTE | 2024-04-17 11:03 | P.PN ---
Subjective Patient is seen in follow-up for end-stage renal disease. She is maintained on hemodialysis on Mondays, Tuesdays and Saturdays. No active complaints. Wants to go home. Vital signs are stable. General: No acute distress. HEENT: Head exam is unremarkable. On nasal cannula. LUNGS: No audible rhonchi or wheezes. HEART: Rate and Rhythm are regular. ABDOMEN: Nontender. EXTREMITITES: 1+ edema. Objective - Vital Signs Vital signs: Vital Signs Temp 98.8 F 04/16/24 20:00 Pulse 91 04/17/24 10:35 Resp 19 04/17/24 10:35 BP 172/99 04/17/24 07:59 Pulse Ox 100 04/17/24 07:59 FiO2 40 04/16/24 08:00 Intake & Output 04/16/24 04/17/24 04/17/24 18:59 06:59 18:59 Intake Total 204.575 240 180 Output Total 300 Balance -95.425 240 180 Weight 72.575 kg 75.1 kg Intake: Intake, IV Titration 86.575 Amount Nitroglycerin-D5w Pmx 50 86.575 mg In Dextrose/Water 1 250ml.bag @ 5 MCG/MIN 1.5 mls/hr IV .Q24H ONE Rx#: [id number] Oral 118 240 180 Output: Urine 300 Other: # Voids 0 - Labs CBC & Chem 7: 04/17/24 08:03 04/17/24 08:03 Labs: Abnormal Lab Results - Last 24 Hours (Table) 04/16/24 04/16/24 04/16/24 Range/Units 00:00 12:47 17:18 WBC (3.8-10.6) k/uL RBC (3.80-5.40) m/uL Hgb (11.4-16.0) gm/dL Hct (34.0-46.0) % MCV (80.0-100.0) fL MCHC (31.0-37.0) g/dL RDW (11.5-15.5) % Sodium (137-145) mmol/L Chloride (98-107) mmol/L Carbon Dioxide (22-30) mmol/L BUN (7-17) mg/dL Creatinine (0.52-1.04) mg/dL Glucose (74-99) mg/dL POC Glucose (mg/dL) 230 H 334 H (70-110) mg/dL Phosphorus 2.3 L (2.5-4.5) mg/dL 04/16/24 04/17/24 04/17/24 Range/Units 20:34 00:08 06:21 WBC (3.8-10.6) k/uL RBC (3.80-5.40) m/uL Hgb (11.4-16.0) gm/dL Hct (34.0-46.0) % MCV (80.0-100.0) fL MCHC (31.0-37.0) g/dL RDW (11.5-15.5) % Sodium (137-145) mmol/L Chloride (98-107) mmol/L Carbon Dioxide (22-30) mmol/L BUN (7-17) mg/dL Creatinine (0.52-1.04) mg/dL Glucose (74-99) mg/dL POC Glucose (mg/dL) 189 H 156 H 210 H (70-110) mg/dL Phosphorus (2.5-4.5) mg/dL 04/17/24 04/17/24 Range/Units 08:03 08:03 WBC 13.9 H (3.8-10.6) k/uL RBC 2.77 L (3.80-5.40) m/uL Hgb 8.7 L (11.4-16.0) gm/dL Hct 28.9 L (34.0-46.0) % MCV 104.3 H D (80.0-100.0) fL MCHC 30.2 L (31.0-37.0) g/dL RDW 16.4 H (11.5-15.5) % Sodium 134 L (137-145) mmol/L Chloride 94 L (98-107) mmol/L Carbon Dioxide 33 H (22-30) mmol/L BUN 29 H (7-17) mg/dL Creatinine 5.05 H (0.52-1.04) mg/dL Glucose 169 H (74-99) mg/dL POC Glucose (mg/dL) (70-110) mg/dL Phosphorus (2.5-4.5) mg/dL Assessment and Plan Plan: Assessment: 1. End-stage renal disease maintained on hemodialysis Tuesdays and Saturdays. 2. Hypertension with chronic kidney disease. 3. Chronic kidney disease mineral bone disease. On Renvela. 4. Diabetes mellitus. 5. Volume overload. 6. Anemia of chronic kidney disease. Plan: Hemodialysis today and again tomorrow per her outpatient schedule. Add Aranesp. Advised low-salt diet and 1500 cc fluid restriction. Maintain home antihypertensives.
[2024-04-17 11:37] LABS: Glucose,Whole Blood 321 mg/dL (70-110)
[2024-04-17] MEDS: DARBEPOETIN ALFA 40 MCG/0.4 ML SYRINGE SQ SCH (12:45)
--- NOTE | 2024-04-17 15:17 | P.PAINPG ---
Objective - Vital Signs Vital signs: Vital Signs Temp 98.8 F 04/16/24 20:00 Pulse 98 04/17/24 13:46 Resp 19 04/17/24 13:46 BP 169/95 04/17/24 12:27 Pulse Ox 98 04/17/24 12:27 FiO2 40 04/16/24 08:00 Intake & Output 04/16/24 04/17/24 04/17/24 18:59 06:59 18:59 Intake Total 204.575 240 420 Output Total 300 Balance -95.425 240 420 Weight 72.575 kg 75.1 kg Intake: Intake, IV Titration 86.575 Amount Nitroglycerin-D5w Pmx 50 86.575 mg In Dextrose/Water 1 250ml.bag @ 5 MCG/MIN 1.5 mls/hr IV .Q24H ONE Rx#: [id number] Oral 118 240 420 Output: Urine 300 Other: # Voids 0 1 - Labs CBC & Chem 7: 04/17/24 08:03 04/17/24 08:03 Labs: Abnormal Lab Results - Last 24 Hours (Table) 04/16/24 04/16/24 04/17/24 Range/Units 17:18 20:34 00:08 WBC (3.8-10.6) k/uL RBC (3.80-5.40) m/uL Hgb (11.4-16.0) gm/dL Hct (34.0-46.0) % MCV (80.0-100.0) fL MCHC (31.0-37.0) g/dL RDW (11.5-15.5) % Sodium (137-145) mmol/L Chloride (98-107) mmol/L Carbon Dioxide (22-30) mmol/L BUN (7-17) mg/dL Creatinine (0.52-1.04) mg/dL Glucose (74-99) mg/dL POC Glucose (mg/dL) 334 H 189 H 156 H (70-110) mg/dL 04/17/24 04/17/24 04/17/24 Range/Units 06:21 08:03 08:03 WBC 13.9 H (3.8-10.6) k/uL RBC 2.77 L (3.80-5.40) m/uL Hgb 8.7 L (11.4-16.0) gm/dL Hct 28.9 L (34.0-46.0) % MCV 104.3 H D (80.0-100.0) fL MCHC 30.2 L (31.0-37.0) g/dL RDW 16.4 H (11.5-15.5) % Sodium 134 L (137-145) mmol/L Chloride 94 L (98-107) mmol/L Carbon Dioxide 33 H (22-30) mmol/L BUN 29 H (7-17) mg/dL Creatinine 5.05 H (0.52-1.04) mg/dL Glucose 169 H (74-99) mg/dL POC Glucose (mg/dL) 210 H (70-110) mg/dL 04/17/24 Range/Units 11:36 WBC (3.8-10.6) k/uL RBC (3.80-5.40) m/uL Hgb (11.4-16.0) gm/dL Hct (34.0-46.0) % MCV (80.0-100.0) fL MCHC (31.0-37.0) g/dL RDW (11.5-15.5) % Sodium (137-145) mmol/L Chloride (98-107) mmol/L Carbon Dioxide (22-30) mmol/L BUN (7-17) mg/dL Creatinine (0.52-1.04) mg/dL Glucose (74-99) mg/dL POC Glucose (mg/dL) 321 H (70-110) mg/dL PQRS Measure Charge Sheet Comment: HISTORY OF PRESENT ILLNESS: A 34 yr old inpatient female w mother at side as a referral from Dr Donahue presents today w severe and chronic joint aches secondary to DJD for evaluation. Pt states pain level is provoked at 6 /10 in intensity, constant, generalized in the lumbar spine, predominantly axial, achy in character without shooting pain. Pain is provoked by any movement. Pain is alleviated by medications (Fioricet, Lidoderm 4%, ASA), topicals, repositioning and rest . PMH: OA, ESRD on HD (T, R, S), Hypothyroidism, MDD/ Anxiety, HTN, Hyperlipidemia, Migraines, IDDM II, Seizure Disorder, GERD, ACD PSH: HD for ESRD, R Chest Port for HD, Adenoidectomy, Section, Cholecystectomy, BL Knee Arthroscopies, Ear Tubes, L Knee Surgery s/p Fracture, Tonsillectomy, Diabetic Retinopathy Eye Surgery SH: Former tobacco user, Hx of Methamphetamine use, Cannabis gummies use. Patient awaiting Kidney and Pancreas Transplant FH: Fa- Unable to obtain. Mo- No Reported History. MGF- CAD, DM All: See list Meds: See list REVIEW OF ORGAN SYSTEMS: CONSTITUTIONAL: No fevers or chills. No recent weight loss. NEUROLOGICAL: + numbness and tingling along the distal extremities. No seizure disorders or headaches. MUSCULOSKELETAL: + pain PSYCHIATRIC: Denies current depression or suicidal thoughts. Physical Examinations : Constitutional : Cooperative , not in acute distress . Neurologic : Cranial nerve II to XII intact. No focal neurological deficits. Psychiatric : alert & oriented x 3. Matching mood & appropriate affect. Judgment & insight intact. Musculoskeletal : Cervical Spine Motor strength in the deltoid and biceps: Normal right side. Normal Left side Motor strength biceps and the wrist extensors: Normal right side . Normal left side Motor strength in the triceps muscle: Normal right side. Normal left side Deep tendon reflexes: Normal at the biceps. Normal at Brachioradialis. Normal at triceps Vertebral body tenderness to deep palpation over Cervical facet loading test: positive bilaterally Spurling test: positive bilaterally Neck distraction test: positive bilaterally Yennifer sign: positive bilaterally Lumbar spine Motor strength lower extremities ,thigh and legs 5/5 Right side , 5/5 Left side Deep tendon reflexes : Normal Knee Jerk. Normal Ankle Jerk Vertebral body tenderness over Dumont Test positive Lumbar facet Loading Test: positive R ight / positive Left Range of motion of the lumbar spine Flexion 30 degrees, extension 10 degrees Straight Leg Raise test: Left/ Right positive at degrees Jinny test: positive right / positive left. Severe tenderness over the Sacroiliac joint on the Right / Left sides Gaenslen test: positive bilaterally Seated flexion test: positive bilaterally. Sacral spine : Severe tenderness over the Sacroiliac joint: right side / left side Range of motion: Flexion of the lumbar spine <60 degrees Range of motion: Extension of the lumbar spine <20 degrees Gaenslen's Test positive Jinny test: positive right side / left side Thigh Thrust Test Sacral Thrust Test Assessment/ Plan : BL Knee DJD s/p Recommendation of short supply of Tylenol #3 #12 NR Use, side effects, adverse reactions, safe storage discussed. Stated she is able to use THC Gummies while on the Organ Transplant list, however it is contraindicated for a narcotic agreement. Pt acknowledged she will not use Tylenol #3 and THC products on the same day. She states she does not drive due to R visual loss. All questions answered. I have spent greater than 30 minutes on patient care today. Dr Acuna was available by phone for the evaluation of this patient. The time was used to review the medical records including relevant urine studies and Prescription history (MAPs), review of the available imaging, evaluation and examination of the patient, coordination of care with the medical staff and if applicable referring physicians, as well as creation of the medical record - Pain Location Head Non-Pharmacological Interventions: Darkened Room, Emotional/Spiritual Support, Environmental Control, Reduce Environmental Stimuli, Relaxation Technique Pharmacological Interventions: Discuss Pain Med Options PQRS Narrative: Smoking Status Never smoker Blood Pressure [Right Arm] 169/95 Blood Pressure 169/89 Pain Intensity [Head] 8 Pain Intensity 9 Pain Scale Used Numeric (1 - 10) Scale Used Numeric (1 - 10) Home Medications: Ambulatory Orders Levothyroxine Sodium [Synthroid] 175 mcg PO DAILY@59910/22/23 Sertraline [Zoloft] 200 mg PO DAILY@79910/22/23 Atorvastatin [Lipitor] 40 mg PO HS@209912/27/23 Divalproex ER [Depakote ER] 500 mg PO BID@0800,169912/27/23 Ondansetron [Zofran] 4 mg PO Q8HR PRN 12/27/23 Pantoprazole [Protonix] 40 mg PO DAILY@59912/27/23 [place] Caps 1 cap PO HS@209912/27/23 methocarbamoL [Robaxin-750] 750 mg PO QID@02,06,12,12/27/23 Aspirin 81 mg PO DAILY@79902/05/24 Docusate [Colace] 100 mg PO DAILY@79902/05/24 Lidocaine 4% Patch 1 patch TOPICAL DAILY@79902/05/24 Magnesium Hydroxide [Milk of Magnesia Concentrate] 7,200 mg PO DAILY PRN 02/05/24 NIFEdipine XL [Procardia XL] 60 mg PO BID@0800,1700 02/05/24 Sevelamer [Renvela] 1,600 mg PO AC-TID@07,11,1630 02/05/24 bisacodyL [Dulcolax] 10 mg RECTAL DAILY PRN 02/05/24 Ipratropium-Albuterol Nebulize [Duoneb 0.5 mg-3 mg/3 ml Soln] 3 ml INHALATION RT-TID PRN each 02/14/24 Isosorbide Mononitrate ER [Imdur] 30 mg PO DAILY tab 02/14/24 Metoclopramide [Reglan] 5 mg PO AC-TID tab 02/14/24 polyethylene glycoL 3350 [Miralax] 17 gm PO AC-LUNCH #527 gm 02/14/24 Acetaminophen [Tylenol] 650 mg PO Q4H PRN 02/18/24 Biotene Dry Mouth/Throat 10 ml PO BID PRN 02/18/24 Melatonin 1 mg PO HS tab 02/25/24 hydrALAZINE HCL [Apresoline] 150 mg PO TID tab 02/25/24 minoxidiL [Loniten] 2.5 mg PO DAILY tab 02/25/24 traZODone HCL [Desyrel] 50 mg PO HS tab 02/25/24 Butalb/APAP/Caff 50-325-40Mg [Fioricet 50-325-40] 1 tab PO Q4HR PRN 03/14/24 Darbepoetin Artur [Aranesp] 40 mcg SQ MO 03/14/24 Insulin Glargine [Lantus Vial] 25 unit SQ HS 03/14/24 Sevelamer [Renvela] 800 mg PO HS 03/14/24 cloNIDine HCL [Catapres] 0.3 mg PO TID 03/14/24 ALPRAZolam [Xanax] 0.5 mg PO BID PRN #4 tab 03/30/24 Ciprofloxacin-Dexameth [Ciprodex Otic Susp] 4 drops RIGHT EAR BID ml 03/30/24 Loratadine [Claritin] 5 mg PO DAILY tab 03/30/24 Acetaminophen-Codeine 300-30mg [Tylenol w/codeine #3] 1 tab PO Q6HR PRN 04/16/24 INSULIN ASPART (NovoLOG) [NovoLOG (formulary)] See Protocol SQ ACHS 04/16/24 Labetalol [Trandate] 400 mg PO BID@0800,1700 7 Days #14 tab 04/17/24 Controlled Substance Measures - Controlled Substance Measures Is patient prescribed a controlled substance at discharge?: Yes When asked, does pt state using other controlled substances?: Yes If prescribed controlled substance>3 days was MAPS reviewed?: Prescribed <3 Days
[2024-04-17 16:04] LABS: Glucose,Whole Blood 262 mg/dL (70-110)
[2024-04-17 19:23] VITALS: BP 135/84; PULSE 85; RESP 16; TEMP 97.9
--- NOTE | 2024-04-19 23:22 | P.DS ---
Providers Date of admission: 04/16/24 01:58 Attending physician: Jamal Glasgow MD Consults: 04/16/24 01:57 Consult Physician Routine Consulting Provider: Charlene Lim Consult Reason/Comments: ESRD Do you want consulting provider notified?: Yes Primary care physician: Stated None Hospital Course: Final Diagnosis -Shortness of breath secondary to volume load from end-stage renal disease and hypertensive urgency. Patient missed her medications unable to get medications from the pharmacy. -Hypertensive emergency: Management as mentioned above -End-stage renal disease received hemodialysis -Acute hypoxic respiratory failure secondary to pulm edema -Type 2 diabetes mellitus will be resumed on home regimen monitor blood sugars -Seizure disorder -Hypothyroidism -Gastroesophageal reflux disease -Chronic oxygen dependent COPD on 2L outpatient -Chronic back pain Discharge Disposition Patient is stable for discharge home. Has been cleared by nephrology. Patient to follow up at her usual hemodialysis session tomorrow. Given a few day supply of blood pressure medications, the rest are ready at her pharmacy for miner pick. Patient states she will be establishing care with Dr. hollins on discharge. 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 Hospital Course Patient is a 34-year-old female with end-stage renal disease on hemodialysis Wednesday and Wednesday schedule, had hemodialysis day before admission; patient came in to the hospital because shortness of breath found to have pulmonary edema patient is also found to have highly elevated blood pressures above 200 patient is admitted for hypertensive emergency because of pulmonary edema. Patient was on multiple medications which are which she did not take yesterday as she does not have those medications. Patient was unable to get to the pharmacy to get those medications after discharge from rehabilitation place, they were not ready at her pharmacy. Patient respiratory status improved even without dialysis. Patient denies any fever chills patient denies nausea vomiting cough. Patient did receive IV nitroglycerin for her blood pressure. Patient with multiple medications for hypertension including minoxidil hydralazine, Imdur, nifedipine, clonidine all of which were resumed patient is complaining of headache because of nitroglycerin which will be discontinued at this time patient blood pressure is well-controlled at this time. Patient was on BiPAP presently on 3 L of oxygen which is her baseline patient does use 2 L of oxygen at home for COPD. She was admitted for monitoring and nephrology was consulted. Patient underwent hemodialysis. Her blood pressure is down to 135/84. Patient is not having chest pain, she is not having shortness of breath. Her lungs are clear, S1 S2 auscultated. Abdomen is soft and nontender. Focal neurological exam is negative. Headache has improved. She will be discharged home. Please see medication reconciliation for a list of current medications. Thank you for allowing us to participate in the care of this patient. The impression and plan of care has been dictated by Yeni Blackburn, Nurse Practitioner as directed. Dr. Connie MD I have performed a history and physical examination and medical decision making of this patient, discussed the same with the dictator, and agree with the dictators assessment and plan as written, documented as a scribe. Based on total visit time, I have performed more than 50% of this visit. Patient Condition at Discharge: Stable Plan - Discharge Summary Discharge Rx Participant: Yes New Discharge Prescriptions: Continue Sertraline [Zoloft] 200 mg PO DAILY@0800 [place] Caps 1 cap PO HS@2100 Atorvastatin [Lipitor] 40 mg PO HS@2100 methocarbamoL [Robaxin-750] 750 mg PO QID@02,06,12,17 Ondansetron [Zofran] 4 mg PO Q8HR PRN PRN Reason: Nausea And Vomiting bisacodyL [Dulcolax] 10 mg RECTAL DAILY PRN PRN Reason: Constipation Magnesium Hydroxide [Milk of Magnesia Concentrate] 7,200 mg PO DAILY PRN PRN Reason: Constipation NIFEdipine XL [Procardia XL] 60 mg PO BID@0800,1700 Lidocaine 4% Patch 1 patch TOPICAL DAILY@0800 Ipratropium-Albuterol Nebulize [Duoneb 0.5 mg-3 mg/3 ml Soln] 3 ml INHALATION RT-TID PRN each PRN Reason: Shortness Of Breath Or Wheezing Metoclopramide [Reglan] 5 mg PO AC-TID tab Biotene Dry Mouth/Throat 10 ml PO BID PRN PRN Reason: DRY MOUTH/THROAT Acetaminophen [Tylenol] 650 mg PO Q4H PRN PRN Reason: Pain Or Fever > 100.5 traZODone HCL [Desyrel] 50 mg PO HS tab minoxidiL [Loniten] 2.5 mg PO DAILY tab cloNIDine HCL [Catapres] 0.3 mg PO TID Darbepoetin Artur [Aranesp] 40 mcg SQ MO Sevelamer [Renvela] 800 mg PO HS Ciprofloxacin-Dexameth [Ciprodex Otic Susp] 4 drops RIGHT EAR BID ml Loratadine [Claritin] 5 mg PO DAILY tab INSULIN ASPART (NovoLOG) [NovoLOG (formulary)] See Protocol SQ ACHS Levothyroxine Sodium [Synthroid] 175 mcg PO DAILY@0600 Divalproex ER [Depakote ER] 500 mg PO BID@0800,1700 Pantoprazole [Protonix] 40 mg PO DAILY@0600 Sevelamer [Renvela] 1,600 mg PO AC-TID@07,11,1630 Docusate [Colace] 100 mg PO DAILY@0800 Aspirin 81 mg PO DAILY@0800 Isosorbide Mononitrate ER [Imdur] 30 mg PO DAILY tab polyethylene glycoL 3350 [Miralax] 17 gm PO AC-LUNCH #527 gm hydrALAZINE HCL [Apresoline] 150 mg PO TID tab Melatonin 1 mg PO HS tab Butalb/APAP/Caff 50-325-40Mg [Fioricet 50-325-40] 1 tab PO Q4HR PRN PRN Reason: Headache Insulin Glargine [Lantus Vial] 25 unit SQ HS ALPRAZolam [Xanax] 0.5 mg PO BID PRN #4 tab PRN Reason: Anxiety Labetalol [Trandate] 400 mg PO BID@0800,1700 7 Days #14 tab Changed Acetaminophen-Codeine 300-30mg [Tylenol w/codeine #3] 1 tab PO Q6HR PRN 3 Days #12 tab PRN Reason: Pain Discharge Medication List Levothyroxine Sodium [Synthroid] 175 mcg PO DAILY@0600 10/22/23 [History] Sertraline [Zoloft] 200 mg PO DAILY@0800 10/22/23 [History] Atorvastatin [Lipitor] 40 mg PO HS@2100 12/27/23 [History] Divalproex ER [Depakote ER] 500 mg PO BID@0800,1700 12/27/23 [History] Ondansetron [Zofran] 4 mg PO Q8HR PRN 12/27/23 [History] Pantoprazole [Protonix] 40 mg PO DAILY@0600 12/27/23 [History] [place] Caps 1 cap PO HS@2100 12/27/23 [History] methocarbamoL [Robaxin-750] 750 mg PO QID@02,06,12,17 12/27/23 [History] Aspirin 81 mg PO DAILY@0800 02/05/24 [History] Docusate [Colace] 100 mg PO DAILY@0800 02/05/24 [History] Lidocaine 4% Patch 1 patch TOPICAL DAILY@0800 02/05/24 [History] Magnesium Hydroxide [Milk of Magnesia Concentrate] 7,200 mg PO DAILY PRN 02/05/24 [History] NIFEdipine XL [Procardia XL] 60 mg PO BID@0800,1700 02/05/24 [History] Sevelamer [Renvela] 1,600 mg PO AC-TID@07,11,1630 02/05/24 [History] bisacodyL [Dulcolax] 10 mg RECTAL DAILY PRN 02/05/24 [History] Ipratropium-Albuterol Nebulize [Duoneb 0.5 mg-3 mg/3 ml Soln] 3 ml INHALATION RT-TID PRN each 02/14/24 [Rx] Isosorbide Mononitrate ER [Imdur] 30 mg PO DAILY tab 02/14/24 [Rx] Metoclopramide [Reglan] 5 mg PO AC-TID tab 02/14/24 [Rx] polyethylene glycoL 3350 [Miralax] 17 gm PO AC-LUNCH #527 gm 02/14/24 [Rx] Acetaminophen [Tylenol] 650 mg PO Q4H PRN 02/18/24 [History] Biotene Dry Mouth/Throat 10 ml PO BID PRN 02/18/24 [History] Melatonin 1 mg PO HS tab 02/25/24 [Rx] hydrALAZINE HCL [Apresoline] 150 mg PO TID tab 02/25/24 [Rx] minoxidiL [Loniten] 2.5 mg PO DAILY tab 02/25/24 [Rx] traZODone HCL [Desyrel] 50 mg PO HS tab 02/25/24 [Rx] Butalb/APAP/Caff 50-325-40Mg [Fioricet 50-325-40] 1 tab PO Q4HR PRN 04/30/24 [History] Darbepoetin Artur [Aranesp] 40 mcg SQ MO 03/14/24 [History] Insulin Glargine [Lantus Vial] 25 unit SQ HS 03/14/24 [History] Sevelamer [Renvela] 800 mg PO HS 03/14/24 [History] cloNIDine HCL [Catapres] 0.3 mg PO TID 03/14/24 [History] ALPRAZolam [Xanax] 0.5 mg PO BID PRN #4 tab 03/30/24 [Rx] Ciprofloxacin-Dexameth [Ciprodex Otic Susp] 4 drops RIGHT EAR BID ml 03/30/24 [Rx] Loratadine [Claritin] 5 mg PO DAILY tab 03/30/24 [Rx] INSULIN ASPART (NovoLOG) [NovoLOG (formulary)] See Protocol SQ ACHS 04/16/24 [History] Acetaminophen-Codeine 300-30mg [Tylenol w/codeine #3] 1 tab PO Q6HR PRN 3 Days #12 tab 04/17/24 [Rx] Labetalol [Trandate] 400 mg PO BID@0800,1700 7 Days #14 tab 04/17/24 [Rx] Follow up Appointment(s)/Referral(s): Justino Hollins MD [STAFF PHYSICIAN] - 1-2 Days (please call and make appointment ) None,Stated [Primary Care Provider] - 1-2 days Gary Andrade DO [STAFF PHYSICIAN] - 1 Week Patient Instructions/Handouts: Heart Failure (DC) Activity/Diet/Wound Care/Special Instructions: Continue with hemodialysis Per home schedule with next session tomorrow. Establish care with a PCP. Continue low salt diet and 1500 CC fluid restriction Discharge Disposition: HOME SELF-CARE
== END 2024-04-17 18:53 | disposition home or self-care (01) | DRG 194 ==
LOC: EC 23:54 → 3SCARD 04-16 01:58
PROVIDERS: ADMIT Internal Medicine; ATTEND Internal Medicine
PROC: 5A1D70Z Performance of Urinary Filtration, Intermittent, Less than 6 Hours Per Day (ICD-10-PCS; principal; 2024-04-16)
PROC: 5A09357 Assistance with Respiratory Ventilation, Less than 24 Consecutive Hours, Continuous Positive Airway Pressure (ICD-10-PCS; 2024-04-16)
DX: J81.0 Acute pulmonary edema (principal); Z87.891 Personal history of nicotine dependence; I16.1 Hypertensive emergency; E11.319 Type 2 diabetes mellitus with unspecified diabetic retinopathy without macular edema; E11.22 Type 2 diabetes mellitus with diabetic chronic kidney disease; E11.43 Type 2 diabetes mellitus with diabetic autonomic (poly)neuropathy; T46.3X5A Adverse effect of coronary vasodilators, initial encounter; N18.6 End stage renal disease; E03.9 Hypothyroidism, unspecified; M19.90 Unspecified osteoarthritis, unspecified site; D63.1 Anemia in chronic kidney disease; G44.40 Drug-induced headache, not elsewhere classified, not intractable; E78.5 Hyperlipidemia, unspecified; F32.A Depression, unspecified; F41.9 Anxiety disorder, unspecified; G40.909 Epilepsy, unspecified, not intractable, without status epilepticus; J44.9 Chronic obstructive pulmonary disease, unspecified; Z76.82 Awaiting organ transplant status; Z99.81 Dependence on supplemental oxygen; Z99.2 Dependence on renal dialysis; I13.2 Hypertensive heart and chronic kidney disease with heart failure and with stage 5 chronic kidney disease, or end stage renal disease; J96.01 Acute respiratory failure with hypoxia; K21.9 Gastro-esophageal reflux disease without esophagitis; K31.84 Gastroparesis; E83.9 Disorder of mineral metabolism, unspecified; Z79.4 Long term (current) use of insulin; Z79.82 Long term (current) use of aspirin; Z79.890 Hormone replacement therapy; Z79.899 Other long term (current) drug therapy; Z88.6 Allergy status to analgesic agent; Z88.5 Allergy status to narcotic agent; Z88.8 Allergy status to other drugs, medicaments and biological substances; Z86.19 Personal history of other infectious and parasitic diseases
CPT/HCPCS: 36415; 71045; 80048; 80053; 82803; 83036; 83880; 84100; 84484; 85025; 85027; 85610; 85730; 90935; 93005; 94640; 94660; 96365; 96366; 96375; 99291

== ENCOUNTER 2024-04-27 06:12 | Inpatient (IN) | payer OTHER ==
--- NOTE | 2024-04-27 06:53 | ED ---
SOB HPI - General Chief Complaint: Shortness of Breath Stated Complaint: WAQAR Time Seen by Provider: 04/27/24 06:18 Source: patient, EMS, RN notes reviewed Mode of arrival: EMS Limitations: no limitations - History of Present Illness Initial Comments: This is a 34-year-old female who presents to the emergency department for shortness of breath. Patient is on hemodialysis Wednesday, , and Wednesday. She went to check into her dialysis session today and was found to have an oxygen saturation of 78% on room air. She does have COPD and is oxygen dependent and wears 2 L at home as her baseline. States that she started to feel short of breath this morning. Denies any chest pain. When EMS arrived they did start her on a BiPAP and she was given a DuoNeb breathing treatment. Patient very hypertensive on arrival and states that she did not take her blood pressure medication this morning. She is also noncompliant with checking her blood pressure at home as she is supposed to do. She received IV nitroglycerin for blood pressure management when she was in the emergency department earlier this month. States that this gave her a headache and her blood pressure improved significantly when given her home medications, which is what she would like to start with. MD Complaint: shortness of breath - Related Data Home Medications Medication Instructions Recorded Confirmed Levothyroxine Sodium [Synthroid] 175 mcg PO DAILY@0600 10/22/23 04/27/24 Sertraline [Zoloft] 200 mg PO DAILY@0800 10/22/23 04/27/24 Atorvastatin [Lipitor] 40 mg PO HS@209912/27/23 04/27/24 Divalproex ER [Depakote ER] 500 mg PO BID@0800,1700 12/27/23 04/27/24 Ondansetron [Zofran] 4 mg PO Q8HR PRN 12/27/23 04/27/24 Pantoprazole [Protonix] 40 mg PO DAILY@0600 12/27/23 04/27/24 [place] Caps 1 cap PO HS@209912/27/23 04/27/24 methocarbamoL [Robaxin-750] 750 mg PO QID@02,06,12,17 12/27/23 04/27/24 Aspirin 81 mg PO DAILY@0800 02/05/24 04/27/24 Docusate [Colace] 100 mg PO DAILY@0800 02/05/24 04/27/24 Lidocaine 4% Patch 1 patch TOPICAL DAILY@0800 02/05/24 04/27/24 Magnesium Hydroxide [Milk of 7,200 mg PO DAILY PRN 02/05/24 04/27/24 Magnesia Concentrate] NIFEdipine XL [Procardia XL] 60 mg PO BID@0800,1700 02/05/24 04/27/24 Sevelamer [Renvela] 1,600 mg PO AC-TID@07,11,1630 02/05/24 04/27/24 bisacodyL [Dulcolax] 10 mg RECTAL DAILY PRN 02/05/24 04/27/24 Acetaminophen [Tylenol] 650 mg PO Q4H PRN 02/18/24 04/27/24 Biotene Dry Mouth/Throat 10 ml PO BID PRN 02/18/24 04/27/24 Butalb/APAP/Caff 50-325-40Mg 1 tab PO Q4HR PRN 03/14/24 04/27/24 [Fioricet 50-325-40] Darbepoetin Artur [Aranesp] 40 mcg SQ MO 03/14/24 04/27/24 Insulin Glargine [Lantus Vial] 25 unit SQ HS 03/14/24 04/27/24 Sevelamer [Renvela] 800 mg PO HS 03/14/24 04/27/24 cloNIDine HCL [Catapres] 0.3 mg PO TID 03/14/24 04/27/24 INSULIN ASPART (NovoLOG) [NovoLOG See Protocol SQ ACHS 04/16/24 04/27/24 (formulary)] Previous Rx's Medication Instructions Recorded Ipratropium-Albuterol Nebulize 3 ml INHALATION RT-TID PRN each 02/14/24 [Duoneb 0.5 mg-3 mg/3 ml Soln] Isosorbide Mononitrate ER [Imdur] 30 mg PO DAILY tab 02/14/24 Metoclopramide [Reglan] 5 mg PO AC-TID tab 02/14/24 polyethylene glycoL 3350 [Miralax] 17 gm PO AC-LUNCH #527 gm 02/14/24 Melatonin 1 mg PO HS tab 02/25/24 hydrALAZINE HCL [Apresoline] 150 mg PO TID tab 02/25/24 minoxidiL [Loniten] 2.5 mg PO DAILY tab 02/25/24 traZODone HCL [Desyrel] 50 mg PO HS tab 02/25/24 ALPRAZolam [Xanax] 0.5 mg PO BID PRN #4 tab 03/30/24 Ciprofloxacin-Dexameth [Ciprodex 4 drops RIGHT EAR BID ml 03/30/24 Otic Susp] Loratadine [Claritin] 5 mg PO DAILY tab 03/30/24 Acetaminophen-Codeine 300-30mg 1 tab PO Q6HR PRN 3 Days #12 tab 04/17/24 [Tylenol w/codeine #3] Labetalol [Trandate] 400 mg PO BID@0800,1700 7 Days #14 04/17/24 tab Allergies Allergy/AdvReac Type Severity Reaction Status Date / Time hydromorphone HCl Allergy Anaphylaxis Verified 04/27/24 09:49 [From Dilaudid] propoxyphene Allergy Rash/Hives Verified 04/27/24 09:49 [From Darvocet-N] tramadol Allergy Anaphylaxis Verified 04/27/24 09:49 ibuprofen [From Motrin] AdvReac unable to Verified 04/27/24 09:49 take due to kidney disease venom-honey bee AdvReac passes out Verified 04/27/24 09:49 [bee venom (honey bee)] Review of Systems ROS Statement: Those systems with pertinent positive or pertinent negative responses have been documented in the HPI. ROS Other: All systems not noted in ROS Statement are negative. Past Medical History Past Medical History: Diabetes Mellitus, GERD/Reflux, Hypertension, Renal Disease, Seizure Disorder, Thyroid Disorder Additional Past Medical History / Comment(s): Neuropathy, last seizure 2020, gastroparesis, headaches with dialysis, states "fast heart rate" since giving ., receives Hemodialysis Wednesday- and Saturdays at [facility] [place] right chest hemodialysis catheter., severe HTN. patient awaiting Kidney and Pancrease Transplant. , states sometimes she has had stroke -like symptoms but no stroke., hx of c-diff 2013. History of Any Multi-Drug Resistant Organisms: None Reported Date of last positivie culture/infection: None MDRO Source:: None Past Surgical History: Adenoidectomy, Section, Cholecystectomy, Orthopedic Surgery, Tonsillectomy Additional Past Surgical History / Comment(s): 2 KNEE SCOPES, EAR TUBES, additional left knee surgery related to fracture, new port a cath sept , eye surgeries for diabetic retinopathy. Past Anesthesia/Blood Transfusion Reactions: Previous Problems w/ Anesthesia Additional Past Anesthesia/Blood Transfusion Reaction / Comment(s): confusion Past Psychological History: Anxiety, Depression Smoking Status: Former smoker Past Alcohol Use History: None Reported Past Drug Use History: Marijuana, Methamphetamine - Past Family History Father Family Medical History: Unable to Obtain Mother Family Medical History: No Reported History Grandfather Family Medical History: Coronary Artery Disease (CAD) Additional Family Medical History / Comment(s): Diabetes mellitus type 2 General Exam Limitations: no limitations General appearance: alert Head exam: Present: atraumatic, normocephalic, normal inspection Respiratory exam: Present: respiratory distress, rales, accessory muscle use Cardiovascular Exam: Present: tachycardia Neurological exam: Present: alert, oriented X3, CN II-XII intact Psychiatric exam: Present: normal affect, normal mood Skin exam: Present: warm, dry, intact, normal color. Absent: rash Course Vital Signs 04/27/24 04/27/24 04/27/24 06:16 06:20 07:00 Temperature 97.5 F L Pulse Rate 112 H 92 Respiratory 30 H 30 H Rate Blood Pressure 226/133 214/129 O2 Sat by Pulse 95 96 Oximetry Fraction of 40 Inspired Oxygen (FIO2) 04/27/24 04/27/24 04/27/24 07:30 08:00 08:13 Temperature Pulse Rate 86 85 Respiratory 30 H 30 H Rate Blood Pressure 183/111 194/109 O2 Sat by Pulse 97 98 Oximetry Fraction of 40 Inspired Oxygen (FIO2) 04/27/24 04/27/24 04/27/24 08:30 09:00 09:30 Temperature Pulse Rate 77 90 81 Respiratory 30 H 28 H 24 Rate Blood Pressure 199/111 208/116 217/121 O2 Sat by Pulse 97 98 99 Oximetry Fraction of Inspired Oxygen (FIO2) 04/27/24 10:00 Temperature Pulse Rate 73 Respiratory 18 Rate Blood Pressure 207/117 O2 Sat by Pulse 100 Oximetry Fraction of Inspired Oxygen (FIO2) Medical Decision Making - Medical Decision Making This is a 34 year old female who presents to the emergency department for shortness of breath. Was pt. sent in by a medical professional or institution? @ -No Did you speak to anyone other than the patient for history? @ -No Did you review nursing and triage notes? @ -Yes, and I agree, it is accurate with regards to the patient's symptoms. Were old charts reviewed? @ -Discharge summary from 04/17/24 discussing the patient being managed with IV nitroglycerin in the emergency department for blood pressure control and was then transitioned to her home medications with sustained improvement in blood pressure. Differential Diagnosis? @ -Differential Dyspnea: Coronary syndrome, arrhythmia, tamponade, asthma, COPD, pulmonary embolism, pneumonia, pneumothorax, pulmonary effusion, anaphylaxis, diabetic ketoacidosis, flailed chest, pulmonary contusion, diaphragmatic rupture, anemia, neuromuscular, this is not meant to be an all-inclusive list. EKG interpreted by me (3pts min.)? @ -EKG interpreted by me demonstrating the following: Sinus tachycardia. Ventricular rate 110 bpm, OK interval 112 ms, QRS duration 85 ms, QTc 373 ms. X-rays interpreted by me (1pt min.)? @ -Chest x-ray obtained. My interpretation identifies pulmonary edema. CT interpreted by me (1pt min.)? @ -Not obtained U/S interpreted by me (1pt. min.)? @ -Not obtained What testing was considered but not performed? (CT, X-rays, U/S, labs)? Why? @ -None What meds were considered but not given? Why? @ -None Did you discuss the management of the patient with other professionals? @ -Yes, Margie Urbina with [facility], who accepts the patient for admission. Did you reconcile home meds? @ -Yes Was smoking cessation discussed for >3mins.? @ -No Was critical care preformed (if so, how long)? @ -No Were there social determinants of health that impacted care today? How? (Homelessness, low income, unemployed, alcoholism, drug addiction, transportation, low edu. Level, literacy, decrease access to med. care, intermediate, rehab)? @ -No Was there de-escalation of care discussed even if they declined? (Discuss DNR or withdrawal of care, Hospice)? @ -No What co-morbidities impacted this encounter? (DM, HTN, Smoking, COPD, CAD, Cancer, CVA, Hep., AIDS, mental health diagnosis, sleep apnea, morbid obesity)? @ -COPD, HTN, ESRD on dialysis, DM Was patient admitted / discharged? @ -Admitted. Patient hypertensive on arrival with a blood pressure of 226/133. She missed her home medications, and during prior admissions her BP corrected w ell with those doses. She was subsequently given home medications including clonidine, nifedipine, minoxidil, and Imdur. She was also in notable respiratory distress and she was maintained on the BiPAP, which was started by EMS. Lab work demonstrates leukocytosis with a white blood cell count of 17.7. She also has hyperglycemia with a glucose of 695. BNP elevated at 46,300 and troponin bumped at 0.093, which may be secondary to end-stage renal disease on dialysis and elevated BNP. Chest x-ray demonstrates pulmonary edema versus diffuse pneumonia or ARDS. This is most likely pulmonary edema, especially given the patient's history. The cause of the leukocytosis is not entirely clear. This may be reactive. Cepheid 4 Plex and urinalysis ordered with results pending at the time of admission to evaluate for any other potential causes of the leukocytosis. 14 units of NovoLog and 40 mg of IV Lasix were administered. Patient admitted to medicine for pulmonary edema and hypertensive urgency. Consult placed for nephrology and cardiology. Serial troponins ordered. Undiagnosed new problem with uncertain prognosis? @ -None Drug Therapy requiring intensive monitoring for toxicity (Heparin, Nitro, Insulin, Cardizem)? @ -None Were any procedures done? @ -None Diagnosis/symptom? @ -Pulmonary edema, hypertensive urgency Acute, or Chronic, or Acute on Chronic? @ -Acute Uncomplicated (without systemic symptoms) or Complicated (systemic symptoms)? @ -Complicated Side effects of treatment? @ -None Exacerbation, Progression, or Severe Exacerbation] @ -Not applicable Poses a threat to life or bodily function? @ -Yes This case was discussed in detail with the attending ED physician, Dr. Driver. Presentation, findings, and treatment plan discussed in detail as well. - Lab Data Result diagrams: 04/27/24 06:52 04/27/24 06:52 Lab Results 04/27/24 04/27/24 04/27/24 Range/Units 06:52 06:52 06:52 WBC 17.7 H (3.8-10.6) k/uL RBC 2.69 L (3.80-5.40) m/uL Hgb 8.8 L (11.4-16.0) gm/dL Hct 28.1 L (34.0-46.0) % MCV 104.6 H (80.0-100.0) fL MCH 32.8 (25.0-35.0) pg MCHC 31.4 (31.0-37.0) g/dL RDW 17.4 H (11.5-15.5) % Plt Count 260 (150-450) k/uL MPV 8.9 Neutrophils % 86 % Lymphocytes % 4 % Monocytes % 3 % Eosinophils % 5 % Basophils % 0 % Neutrophils # 15.3 H (1.3-7.7) k/uL Lymphocytes # 0.7 L (1.0-4.8) k/uL Monocytes # 0.6 (0-1.0) k/uL Eosinophils # 1.0 H (0-0.7) k/uL Basophils # 0.1 (0-0.2) k/uL Hypochromasia Marked Anisocytosis Slight Macrocytosis Moderate PT 10.9 (10.0-12.5) sec INR 1.0 (<1.2) APTT 20.0 L (22.0-30.0) sec Sodium 128 L (137-145) mmol/L Potassium 4.4 (3.5-5.1) mmol/L Chloride 90 L (98-107) mmol/L Carbon Dioxide 27 (22-30) mmol/L Anion Gap 11 mmol/L BUN 38 H (7-17) mg/dL Creatinine 4.93 H (0.52-1.04) mg/dL Est GFR (CKD-EPI)AfAm 12 (>60 ml/min/1.73 sqM) Est GFR (CKD-EPI)NonAf 11 (>60 ml/min/1.73 sqM) Glucose 695 H* (74-99) mg/dL Plasma Lactic Acid Christopher (0.7-2.0) mmol/L Calcium 9.1 (8.4-10.2) mg/dL Magnesium 1.7 (1.6-2.3) mg/dL Total Bilirubin 1.0 (0.2-1.3) mg/dL AST 35 (14-36) U/L ALT 27 (4-34) U/L Alkaline Phosphatase 194 H (38-126) U/L Troponin I (0.000-0.034) ng/mL NT-Pro-B Natriuret Pep 93139 pg/mL Total Protein 6.2 L (6.3-8.2) g/dL Albumin 4.0 (3.5-5.0) g/dL 04/27/24 04/27/24 Range/Units 06:52 06:52 WBC (3.8-10.6) k/uL RBC (3.80-5.40) m/uL Hgb (11.4-16.0) gm/dL Hct (34.0-46.0) % MCV (80.0-100.0) fL MCH (25.0-35.0) pg MCHC (31.0-37.0) g/dL RDW (11.5-15.5) % Plt Count (150-450) k/uL MPV Neutrophils % % Lymphocytes % % Monocytes % % Eosinophils % % Basophils % % Neutrophils # (1.3-7.7) k/uL Lymphocytes # (1.0-4.8) k/uL Monocytes # (0-1.0) k/uL Eosinophils # (0-0.7) k/uL Basophils # (0-0.2) k/uL Hypochromasia Anisocytosis Macrocytosis PT (10.0-12.5) sec INR (<1.2) APTT (22.0-30.0) sec Sodium (137-145) mmol/L Potassium (3.5-5.1) mmol/L Chloride (98-107) mmol/L Carbon Dioxide (22-30) mmol/L Anion Gap mmol/L BUN (7-17) mg/dL Creatinine (0.52-1.04) mg/dL Est GFR (CKD-EPI)AfAm (>60 ml/min/1.73 sqM) Est GFR (CKD-EPI)NonAf (>60 ml/min/1.73 sqM) Glucose (74-99) mg/dL Plasma Lactic Acid Christopher 1.8 (0.7-2.0) mmol/L Calcium (8.4-10.2) mg/dL Magnesium (1.6-2.3) mg/dL Total Bilirubin (0.2-1.3) mg/dL AST (14-36) U/L ALT (4-34) U/L Alkaline Phosphatase (38-126) U/L Troponin I 0.093 H* (0.000-0.034) ng/mL NT-Pro-B Natriuret Pep pg/mL Total Protein (6.3-8.2) g/dL Albumin (3.5-5.0) g/dL - Radiology Data Radiology results: report reviewed, image reviewed Disposition Clinical Impression: Pulmonary edema, Hypertensive urgency Disposition: ADMITTED IP TO THIS HOSP
[2024-04-27] MEDS: cloNIDine HCL 0.1 MG TAB PO STA (06:54)
[2024-04-27] MEDS: cloNIDine HCL 0.2 MG TAB PO STA (06:58)
[2024-04-27 07:06] LABS: Anisocytosis Slight; Basophils # (A) 0.1 k/uL (0-0.2); Basophils % (A) 0 %; Eosinophils % (A) 5 %; HCT 28.1 % (34.0-46.0); HGB 8.8 gm/dL (11.4-16.0); Hypochromasia Marked; Lymphocytes # (A) 0.7 k/uL (1.0-4.8); Lymphocytes % (A) 4 %; MCH 32.8 pg (25.0-35.0); MCHC 31.4 g/dL (31.0-37.0); MCV 104.6 fL (80.0-100.0); Macrocytosis Moderate; Mean Platelet Volume 8.9; Monocytes # (A) 0.6 k/uL (0-1.0); Monocytes % (A) 3 %; Neutrophils # (A) 15.3 k/uL (1.3-7.7); Neutrophils % (A) 86 %; Platelet Count 260 k/uL (150-450); RBC 2.69 m/uL (3.80-5.40); RDW 17.4 % (11.5-15.5); WBC 17.7 k/uL (3.8-10.6)
[2024-04-27] MEDS: ISOSORBIDE MONONITRATE ER 30 MG TAB.ER.24H PO STA (07:13)
[2024-04-27] MEDS: minoxidiL 2.5 MG TAB PO SCH (07:13)
[2024-04-27 07:21] LABS: ALT 27 U/L (4-34); AST 35 U/L (14-36); African American GFR (CKD) 12 (>60 ml/min/1.73 sqM); Alkaline Phosphatase 194 U/L (38-126); Anion Gap 11 mmol/L; Blood Urea Nitrogen 38 mg/dL (7-17); Calcium 9.1 mg/dL (8.4-10.2); Carbon Dioxide 27 mmol/L (22-30); Chloride 90 mmol/L (98-107); Magnesium 1.7 mg/dL (1.6-2.3); Non-African American GFR(CKD) 11 (>60 ml/min/1.73 sqM); Potassium 4.4 mmol/L (3.5-5.1); Sodium 128 mmol/L (137-145); Total Protein 6.2 g/dL (6.3-8.2)
[2024-04-27 07:34] LABS: Prothrombin Time 10.9 sec (10.0-12.5)
[2024-04-27 07:47] LABS: NT-Pro-B-Type Natriuretic Pept 46300 pg/mL
[2024-04-27 07:49] LABS: Glucose 695 mg/dL (74-99)
--- NOTE | 2024-04-27 07:53 | XR ---
EXAMINATION TYPE: XR chest 1V portable DATE OF EXAM: 04/27/2024 COMPARISON: 04/16/2024 HISTORY: Shortness of breath TECHNIQUE: Single frontal view of the chest is obtained. FINDINGS: Diffuse bilateral airspace disease with small pleural effusions. Heart is enlarged. No pne umothorax. Dialysis catheter stable. Osseous structures are stable. IMPRESSION: Correlate for pulmonary edema versus diffuse pneumonia or ARDS.
[2024-04-27] MEDS ORDERED: ACETAMINOPHEN TAB 325 MG TAB PO PRN ×2 (08:08→10:52)
[2024-04-27] MEDS ORDERED: NALOXONE 0.4 MG/ML 1 ML VIAL IV PRN (08:08)
[2024-04-27] MEDS: INSULIN ASPART (NovoLOG) 100 UNIT/ML VIAL SQ ONE (08:58)
[2024-04-27] MEDS: FUROSEMIDE 10 MG/ML 4 ML VIAL IV STA (08:58)
[2024-04-27] MEDS ORDERED: MAGNESIUM HYDROXIDE 2,400 MG/30 ML CUP PO PRN (10:52)
[2024-04-27] MEDS ORDERED: DRY MOUTH SPRAY 44.3 SPRAY/44.3 ML SPRAY MUCOUS MEM PRN (10:52)
[2024-04-27] MEDS ORDERED: ONDANSETRON 4 MG TAB PO PRN (10:52)
[2024-04-27] MEDS ORDERED: bisacodyL 10 MG SUPP RECTAL PRN (10:52)
[2024-04-27] MEDS ORDERED: BUTALB/APAP/CAFF 50-325-40MG TAB PO PRN (10:52)
[2024-04-27] MEDS: Acetaminophen-Codeine 300-30mg TAB PO PRN (12:29)
[2024-04-27] MEDS: methocarbamoL 750 MG TAB PO SCH (12:30)
[2024-04-27] MEDS: METOCLOPRAMIDE 5 MG TAB PO SCH (12:30)
[2024-04-27] MEDS: SEVELAMER 800 MG TAB PO SCH ×2 (12:31→21:51)
[2024-04-27] MEDS: ALPRAZolam 0.5 MG TAB PO PRN (12:31)
--- NOTE | 2024-04-27 12:36 | P.NPCON ---
History of Present Illness - Reason for Consult end stage renal disease - History of Present Illness patient is a 34-year-old female with end-stage renal disease on hemodialysis 4 times a week as outpatient. She presents to the hospital with complaints of shortness of breath and is noted to be in significant fluid overload again.no complaints of chest pains fever or chills. Patient states that she did not miss any of her dialysis treatments.patient came to the dialysis unit this morning she was very short of breath and hypoxic with O2 sats at 70%. Patient was barely able to talk. Blood pressure could not be obtained on her as well and therefore patient was sent to the hospital. It appears that patient had been smoking as well prior to coming in to the dialysis unit. No complaints of chest pain. Patient is currently on hemodialysis. She was placed on BiPAP and states she is feeling better. Review of Systems as per HPI Past Medical History Past Medical History: Diabetes Mellitus, GERD/Reflux, Hypertension, Renal Disease, Seizure Disorder, Thyroid Disorder Additional Past Medical History / Comment(s): Neuropathy, last seizure 2020, gastroparesis, headaches with dialysis, states "fast heart rate" since giving ., receives Hemodialysis Wednesday- and Saturdays at [facility]., right chest hemodialysis catheter., severe HTN. patient awaiting Kidney and Pancrease Transplant. , states sometimes she has had stroke -like symptoms but no stroke., hx of c-diff 2013. History of Any Multi-Drug Resistant Organisms: None Reported Date of last positivie culture/infection: None MDRO Source:: None Past Surgical History: Adenoidectomy, Section, Cholecystectomy, Or thopedic Surgery, Tonsillectomy Additional Past Surgical History / Comment(s): 2 KNEE SCOPES, EAR TUBES, additional left knee surgery related to fracture, new port a cath jul 29, eye surgeries for diabetic retinopathy. Past Anesthesia/Blood Transfusion Reactions: Previous Problems w/ Anesthesia Additional Past Anesthesia/Blood Transfusion Reaction / Comment(s): confusion Past Psychological History: Anxiety, Depression Smoking Status: Former smoker Past Alcohol Use History: None Reported Past Drug Use History: Marijuana, Methamphetamine - Past Family History Father Family Medical History: Unable to Obtain Mother Family Medical History: No Reported History Grandfather Family Medical History: Coronary Artery Disease (CAD) Additional Family Medical History / Comment(s): Diabetes mellitus type 2 Medications and Allergies Home Medications Medication Instructions Recorded Confirmed Type Levothyroxine Sodium [Synthroid] 175 mcg PO DAILY@0600 10/22/23 04/27/24 History Sertraline [Zoloft] 200 mg PO DAILY@0800 10/22/23 04/27/24 History Atorvastatin [Lipitor] 40 mg PO HS@2100 12/27/23 04/27/24 History Divalproex ER [Depakote ER] 500 mg PO BID@0800,1700 12/27/23 04/27/24 History Ondansetron [Zofran] 4 mg PO Q8HR PRN 12/27/23 04/27/24 History Pantoprazole [Protonix] 40 mg PO DAILY@0600 12/27/23 04/27/24 History [place] Caps 1 cap PO HS@2100 12/27/23 04/27/24 History methocarbamoL [Robaxin-750] 750 mg PO QID@02,06,12,17 12/27/23 04/27/24 History Aspirin 81 mg PO DAILY@0800 02/05/24 04/27/24 History Docusate [Colace] 100 mg PO DAILY@0800 02/05/24 04/27/24 History Lidocaine 4% Patch 1 patch TOPICAL DAILY@0800 02/05/24 04/27/24 History Magnesium Hydroxide [Milk of 7,200 mg PO DAILY PRN 02/05/24 04/27/24 History Magnesia Concentrate] NIFEdipine XL [Procardia XL] 60 mg PO BID@0800,1700 02/05/24 04/27/24 History Sevelamer [Renvela] 1,600 mg PO AC-TID@07,11,1630 02/05/24 04/27/24 History bisacodyL [Dulcolax] 10 mg RECTAL DAILY PRN 02/05/24 04/27/24 History Ipratropium-Albuterol Nebulize 3 ml INHALATION RT-TID PRN each 02/14/24 04/27/24 Rx [Duoneb 0.5 mg-3 mg/3 ml Soln] Isosorbide Mononitrate ER [Imdur] 30 mg PO DAILY tab 02/14/24 04/27/24 Rx Metoclopramide [Reglan] 5 mg PO AC-TID tab 02/14/24 04/27/24 Rx polyethylene glycoL 3350 [Miralax] 17 gm PO AC-LUNCH #527 gm 02/14/24 04/27/24 Rx Acetaminophen [Tylenol] 650 mg PO Q4H PRN 02/18/24 04/27/24 History Biotene Dry Mouth/Throat 10 ml PO BID PRN 02/18/24 04/27/24 History Melatonin 1 mg PO HS tab 02/25/24 04/27/24 Rx hydrALAZINE HCL [Apresoline] 150 mg PO TID tab 02/25/24 04/27/24 Rx minoxidiL [Loniten] 2.5 mg PO DAILY tab 02/25/24 04/27/24 Rx traZODone HCL [Desyrel] 50 mg PO HS tab 02/25/24 04/27/24 Rx Butalb/APAP/Caff 50-325-40Mg 1 tab PO Q4HR PRN 03/14/24 04/27/24 History [Fioricet 50-325-40] Darbepoetin Artur [Aranesp] 40 mcg SQ MO 03/14/24 04/27/24 History Insulin Glargine [Lantus Vial] 25 unit SQ HS 03/14/24 04/27/24 History Sevelamer [Renvela] 800 mg PO HS 03/14/24 04/27/24 History cloNIDine HCL [Catapres] 0.3 mg PO TID 03/14/24 04/27/24 History ALPRAZolam [Xanax] 0.5 mg PO BID PRN #4 tab 03/30/24 04/27/24 Rx Ciprofloxacin-Dexameth [Ciprodex 4 drops RIGHT EAR BID ml 03/30/24 04/27/24 Rx Otic Susp] Loratadine [Claritin] 5 mg PO DAILY tab 03/30/24 04/27/24 Rx INSULIN ASPART (NovoLOG) [NovoLOG See Protocol SQ ACHS 04/16/24 04/27/24 History (formulary)] Acetaminophen-Codeine 300-30mg 1 tab PO Q6HR PRN 3 Days #12 tab 04/17/24 04/27/24 Rx [Tylenol w/codeine #3] Labetalol [Trandate] 400 mg PO BID@0800,1700 7 Days #14 04/17/24 04/27/24 Rx tab Allergies Allergy/AdvReac Type Severity Reaction Status Date / Time hydromorphone HCl Allergy Anaphylaxis Verified 04/27/24 09:49 [From Dilaudid] propoxyphene Allergy Rash/Hives Verified 04/27/24 09:49 [From Darvocet-N] tramadol Allergy Anaphylaxis Verified 04/27/24 09:49 ibuprofen [From Motrin] AdvReac unable to Verified 04/27/24 09:49 take due to kidney disease venom-honey bee AdvReac passes out Verified 04/27/24 09:49 [bee venom (honey bee)] Physical Exam Vitals: Vital Signs Temp Pulse Resp BP Pulse Ox FiO2 04/27/24 11:22 40 04/27/24 10:00 73 18 207/117 100 04/27/24 09:30 81 24 217/121 99 04/27/24 09:00 90 28 H 208/116 98 04/27/24 08:30 77 30 H 199/111 97 04/27/24 08:13 40 04/27/24 08:00 85 30 H 194/109 98 04/27/24 07:30 86 30 H 183/111 97 04/27/24 07:00 92 30 H 214/129 96 04/27/24 06:20 40 04/27/24 06:16 97.5 F L 112 H 30 H 226/133 95 Intake and Output 04/26/24 04/27/24 04/27/24 22:59 06:59 14:59 Other: Weight 76.43 kg patient is awake. She is currently on BiPAP. Examination of the heart S1 and S2 Examination of the lungs decreased breath sounds at the bases with basilar crackles Abdomen is soft nontender Examination of lower extremity shows edema 2+ bilaterally [employer]ING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 Results - Lab Results Most recent lab results Calcium 9.1 mg/dL (8.4-10.2) 04/27/24 06:52 Magnesium 1.7 mg/dL (1.6-2.3) 04/27/24 06:52 04/27/24 06:52 04/27/24 06:52 Assessment and Plan Assessment: 1. End-stage renal disease on hemodialysis 4 times a week as outpatient. 2. Volume overload. Patient has been advised multiple times regarding salt and fluid restriction. 3. Acute hypoxic respiratory failure secondary to CHF and volume overload 4. Diabetic gastroparesis 5. CK D mineral bone disorder Plan: hemodialysis today with goal UF 3-4 L and repeat in a.m. We will continue to work with her as outpatient to maintain her goal dry weight. Resume home medications including antihypertensive medications and phosphate binders.
[2024-04-27 12:44] LABS: Glucose,Whole Blood 195 mg/dL (70-110)
--- NOTE | 2024-04-27 13:09 | P.HPIM ---
History of Present Illness 34-year-old female who returns renal disease for type hemodialysis a week did not miss any hemodialysis that came in with volume overload acute respiratory failure requiring BiPAP. Patient has extensive pulm edema on the chest x-ray. Patient is undergoing hemodialysis with removal of 4.5 L. Patient is found to have highly elevated blood pressure with systolics going into 220. Patient blood pressure is slightly better now. Patient was hypoxic with saturations in 70%. Patient has multiple hospitalizations for the same problem apparently patient is noncompliant with diet and fluid restriction recommendations. REVIEW OF SYSTEMS: CONSTITUTIONAL: No fever, no malaise, no fatigue. HEENT: No recent visual problems or hearing problems. Denied any sore throat. CARDIOVASCULAR: No chest pain, orthopnea, PND, no palpitations, no syncope. PULMONARY, no hemoptysis. GASTROINTESTINAL: No diarrhea, no nausea, no vomiting, no abdominal pain. NEUROLOGICAL: No headaches, no weakness, no numbness. HEMATOLOGICAL: Denies any bleeding or petechiae. GENITOURINARY: Denies any burning micturition, frequency, or urgency. MUSCULOSKELETAL/RHEUMATOLOGICAL: Denies any joint pain, swelling, or any muscle pain. ENDOCRINE: Denies any polyuria or polydipsia. The rest of the 14-point review of systems is negative. PHYSICAL EXAMINATION: GENERAL: The patient is alert and oriented x3, not in any acute distress. Well developed, well nourished. On BiPAP is in some discomfort HEENT: Pupils are round and equally reacting to light. EOMI. No scleral icterus. No conjunctival pallor. Normocephalic, atraumatic. No pharyngeal erythema. No thyromegaly. CARDIOVASCULAR: S1 and S2 present. No murmurs, rubs, or gallops. PULMONARY: Extensive bilateral crackles ABDOMEN: Soft, nontender, nondistended, normoactive bowel sounds. No palpable organomegaly. MUSCULOSKELETAL: No joint swelling or deformity. EXTREMITIES: No cyanosis, clubbing, or pedal edema. NEUROLOGICAL: Gross neurological examination did not reveal any focal deficits. SKIN: No rashes. Assessment and plan -Acute hypoxic respiratory failure requiring BiPAP secondary to pulmonary edema from end-stage renal disease patient is undergoing hemodialysis at this time w ith removal of 4 L of fluid so far -Hypertensive urgency uncontrolled elevated blood pressures patient was resumed on home regimen her blood pressure is still elevated but will continue with the home regimen and monitor expected to improve with hemodialysis. -Diabetes mellitus with diabetic nephropathy end-stage renal disease patient will be resumed on home regimen along with sliding scale -Seizure disorder -Hypothyroidism -End-stage renal disease -Depression For above-mentioned chronic medical problems patient resumed on appropriate home medications DVT prophylaxis: Subcutaneous heparin Past Medical History Past Medical History: Diabetes Mellitus, GERD/Reflux, Hypertension, Renal Disease, Seizure Disorder, Thyroid Disorder Additional Past Medical History / Comment(s): Neuropathy, last seizure 2020, gastroparesis, headaches with dialysis, states "fast heart rate" since giving ., receives Hemodialysis Wednesday- and Saturdays at [facility]., right chest hemodialysis catheter., severe HTN. patient awaiting Kidney and Pancrease Transplant. , states sometimes she has had stroke -like symptoms but no stroke., hx of c-diff 2013. History of Any Multi-Drug Resistant Organisms: None Reported Date of last positivie culture/infection: None MDRO Source:: None Past Surgical History: Adenoidectomy, Section, Cholecystectomy, Orthopedic Surgery, Tonsillectomy Additional Past Surgical History / Comment(s): 2 KNEE SCOPES, EAR TUBES, additional left knee surgery related to fracture, new port a cath jul 29, eye surgeries for diabetic retinopathy. Past Anesthesia/Blood Transfusion Reactions: Previous Problems w/ Anesthesia Additional Past Anesthesia/Blood Transfusion Reaction / Comment(s): confusion Past Psychological History: Anxiety, Depression Smoking Status: Former smoker Past Alcohol Use History: None Reported Past Drug Use History: Marijuana, Methamphetamine - Past Family History Father Family Medical History: Unable to Obtain Mother Family Medical History: No Reported History Grandfather Family Medical History: Coronary Artery Disease (CAD) Additional Family Medical History / Comment(s): Diabetes mellitus type 2 Medications and Allergies Home Medications Medication Instructions Recorded Confirmed Type Levothyroxine Sodium [Synthroid] 175 mcg PO DAILY@0600 10/22/23 04/27/24 History Sertraline [Zoloft] 200 mg PO DAILY@0800 10/22/23 04/27/24 History Atorvastatin [Lipitor] 40 mg PO HS@2100 12/27/23 04/27/24 History Divalproex ER [Depakote ER] 500 mg PO BID@0800,1700 12/27/23 04/27/24 History Ondansetron [Zofran] 4 mg PO Q8HR PRN 12/27/23 04/27/24 History Pantoprazole [Protonix] 40 mg PO DAILY@0600 12/27/23 04/27/24 History [place] Caps 1 cap PO HS@2100 12/27/23 04/27/24 History methocarbamoL [Robaxin-750] 750 mg PO QID@02,06,12,17 12/27/23 04/27/24 History Aspirin 81 mg PO DAILY@0800 02/05/24 04/27/24 History Docusate [Colace] 100 mg PO DAILY@0800 02/05/24 04/27/24 History Lidocaine 4% Patch 1 patch TOPICAL DAILY@0800 02/05/24 04/27/24 History Magnesium Hydroxide [Milk of 7,200 mg PO DAILY PRN 02/05/24 04/27/24 History Magnesia Concentrate] NIFEdipine XL [Procardia XL] 60 mg PO BID@0800,1700 02/05/24 04/27/24 History Sevelamer [Renvela] 1,600 mg PO AC-TID@07,11,1630 02/05/24 04/27/24 History bisacodyL [Dulcolax] 10 mg RECTAL DAILY PRN 02/05/24 04/27/24 History Ipratropium-Albuterol Nebulize 3 ml INHALATION RT-TID PRN each 02/14/24 Rx [Duoneb 0.5 mg-3 mg/3 ml Soln] Isosorbide Mononitrate ER [Imdur] 30 mg PO DAILY tab 02/14/24 04/27/24 Rx Metoclopramide [Reglan] 5 mg PO AC-TID tab 02/14/24 04/27/24 Rx polyethylene glycoL 3350 [Miralax] 17 gm PO AC-LUNCH #527 gm 02/14/24 04/27/24 Rx Acetaminophen [Tylenol] 650 mg PO Q4H PRN 02/18/24 04/27/24 History Biotene Dry Mouth/Throat 10 ml PO BID PRN 02/18/24 04/27/24 History Melatonin 1 mg PO HS tab 02/25/24 04/27/24 Rx hydrALAZINE HCL [Apresoline] 150 mg PO TID tab 02/25/24 04/27/24 Rx minoxidiL [Loniten] 2.5 mg PO DAILY tab 02/25/24 04/27/24 Rx traZODone HCL [Desyrel] 50 mg PO HS tab 02/25/24 04/27/24 Rx Butalb/APAP/Caff 50-325-40Mg 1 tab PO Q4HR PRN 03/14/24 04/27/24 History [Fioricet 50-325-40] Darbepoetin Artur [Aranesp] 40 mcg SQ MO 03/14/24 04/27/24 History Insulin Glargine [Lantus Vial] 25 unit SQ HS 03/14/24 04/27/24 History Sevelamer [Renvela] 800 mg PO HS 03/14/24 04/27/24 History cloNIDine HCL [Catapres] 0.3 mg PO TID 03/14/24 04/27/24 History ALPRAZolam [Xanax] 0.5 mg PO BID PRN #4 tab 03/30/24 04/27/24 Rx Ciprofloxacin-Dexameth [Ciprodex 4 drops RIGHT EAR BID ml 03/30/24 04/27/24 Rx Otic Susp] Loratadine [Claritin] 5 mg PO DAILY tab 03/30/24 04/27/24 Rx INSULIN ASPART (NovoLOG) [NovoLOG See Protocol SQ ACHS 04/16/24 04/27/24 History (formulary)] Acetaminophen-Codeine 300-30mg 1 tab PO Q6HR PRN 3 Days #12 tab 04/17/24 04/27/24 Rx [Tylenol w/codeine #3] Labetalol [Trandate] 400 mg PO BID@0800,1700 7 Days #14 04/17/24 04/27/24 Rx tab Allergies Allergy/AdvReac Type Severity Reaction Status Date / Time hydromorphone HCl Allergy Anaphylaxis Verified 04/27/24 09:49 [From Dilaudid] propoxyphene Allergy Rash/Hives Verified 04/27/24 09:49 [From Darvocet-N] tramadol Allergy Anaphylaxis Verified 04/27/24 09:49 ibuprofen [From Motrin] AdvReac unable to Verified 04/27/24 09:49 take due to kidney disease venom-honey bee AdvReac passes out Verified 04/27/24 09:49 [bee venom (honey bee)] Physical Exam Vitals: Vital Signs Temp Pulse Resp BP Pulse Ox FiO2 04/27/24 12:31 90 26 H 203/120 100 04/27/24 11:22 40 04/27/24 10:00 73 18 207/117 100 04/27/24 09:30 81 24 217/121 99 04/27/24 09:00 90 28 H 208/116 98 04/27/24 08:30 77 30 H 199/111 97 04/27/24 08:13 40 04/27/24 08:00 85 30 H 194/109 98 04/27/24 07:30 86 30 H 183/111 97 04/27/24 07:00 92 30 H 214/129 96 04/27/24 06:20 40 04/27/24 06:16 97.5 F L 112 H 30 H 226/133 95 Intake and Output 04/26/24 04/27/24 04/27/24 22:59 06:59 14:59 Other: Weight 76.43 kg Results CBC & Chem 7: 04/27/24 06:52 04/27/24 06:52 Labs: Abnormal Lab Results - Last 24 Hours (Table) 04/27/24 04/27/24 04/27/24 Range/Units 06:52 06:52 06:52 WBC 17.7 H (3.8-10.6) k/uL RBC 2.69 L (3.80-5.40) m/uL Hgb 8.8 L (11.4-16.0) gm/dL Hct 28.1 L (34.0-46.0) % MCV 104.6 H (80.0-100.0) fL RDW 17.4 H (11.5-15.5) % Neutrophils # 15.3 H (1.3-7.7) k/uL Lymphocytes # 0.7 L (1.0-4.8) k/uL Eosinophils # 1.0 H (0-0.7) k/uL APTT 20.0 L (22.0-30.0) sec Sodium 128 L (137-145) mmol/L Chloride 90 L (98-107) mmol/L BUN 38 H (7-17) mg/dL Creatinine 4.93 H (0.52-1.04) mg/dL Glucose 695 H* (74-99) mg/dL POC Glucose (mg/dL) (70-110) mg/dL Alkaline Phosphatase 194 H (38-126) U/L Troponin I (0.000-0.034) ng/mL Total Protein 6.2 L (6.3-8.2) g/dL 04/27/24 04/27/24 04/27/24 Range/Units 06:52 11:04 12:42 WBC (3.8-10.6) k/uL RBC (3.80-5.40) m/uL Hgb (11.4-16.0) gm/dL Hct (34.0-46.0) % MCV (80.0-100.0) fL RDW (11.5-15.5) % Neutrophils # (1.3-7.7) k/uL Lymphocytes # (1.0-4.8) k/uL Eosinophils # (0-0.7) k/uL APTT (22.0-30.0) sec Sodium (137-145) mmol/L Chloride (98-107) mmol/L BUN (7-17) mg/dL Creatinine (0.52-1.04) mg/dL Glucose (74-99) mg/dL POC Glucose (mg/dL) 195 H (70-110) mg/dL Alkaline Phosphatase (38-126) U/L Troponin I 0.093 H* 0.099 H* (0.000-0.034) ng/mL Total Protein (6.3-8.2) g/dL
[2024-04-27] MEDS: INSULIN ASPART (NovoLOG) 100 UNIT/ML VIAL SQ SCH (13:47)
[2024-04-27] MEDS: polyethylene glycoL 3350 17 GM POWD.PACK PO SCH (13:50)
[2024-04-27] MEDS: cloNIDine HCL 0.1 MG TAB PO SCH (16:56)
[2024-04-27] MEDS: hydrALAZINE HCL 50 MG TAB PO SCH (16:57)
[2024-04-27] MEDS: LABETALOL 200 MG TAB PO SCH (17:13)
[2024-04-27] MEDS: DIVALPROEX ER 500 MG TAB.ER.24H PO SCH (17:14)
[2024-04-27 17:40] LABS: Glucose,Whole Blood 199 mg/dL (70-110)
[2024-04-27] MEDS: MELATONIN 1 MG TAB PO SCH (21:51)
[2024-04-27] MEDS: traZODone HCL 50 MG TAB PO SCH (21:51)
[2024-04-27] MEDS: ATORVASTATIN 40 MG TAB PO SCH (21:51)
[2024-04-27] MEDS: INSULIN DETEMIR (LEVEMIR) 100 UNIT/ML SYR SQ SCH (21:52)
[2024-04-27] MEDS: FOLIC ACID-VIT B COMPLEX-VIT C 1 CAP PO SCH (21:52)
[2024-04-27] MEDS: HEPARIN SODIUM,PORCINE 5,000 UNIT/ML 1 ML VIAL SQ SCH (21:59)
[2024-04-27] MEDS: CIPROFLOXACIN-DEXAMETH 0.3-0.1% DROPS 7.5 ML BTL RIGHT EAR SCH (22:08)
[2024-04-28] MEDS: LEVOTHYROXINE 88 MCG TAB PO SCH (05:42)
[2024-04-28] MEDS: PANTOPRAZOLE 40 MG TABLET PO SCH (05:45)
[2024-04-28 07:49] LABS: Glucose,Whole Blood 219 mg/dL (70-110)
[2024-04-28] MEDS ORDERED: minoxidiL 2.5 MG TAB PO SCH (09:00)
[2024-04-28] MEDS: LIDOCAINE 4% PATCH TOPICAL SCH (09:04)
[2024-04-28] MEDS: ISOSORBIDE MONONITRATE ER 30 MG TAB.ER.24H PO SCH (09:12)
[2024-04-28] MEDS: LORATADINE 10 MG TAB PO SCH (09:13)
[2024-04-28] MEDS: DOCUSATE 100 MG CAP PO SCH (09:13)
[2024-04-28] MEDS: ONDANSETRON 4 MG/2 ML VIAL IVP PRN (09:19)
[2024-04-28 11:47] LABS: African American GFR (CKD) 15 (>60 ml/min/1.73 sqM); Anion Gap 9 mmol/L; Blood Urea Nitrogen 22 mg/dL (7-17); Calcium 9.3 mg/dL (8.4-10.2); Carbon Dioxide 33 mmol/L (22-30); Chloride 93 mmol/L (98-107); Glucose 143 mg/dL (74-99); Non-African American GFR(CKD) 13 (>60 ml/min/1.73 sqM); Potassium 3.6 mmol/L (3.5-5.1); Sodium 135 mmol/L (137-145)
[2024-04-28 12:18] LABS: Glucose,Whole Blood 128 mg/dL (70-110)
[2024-04-28] MEDS: SERTRALINE 100 MG TAB PO SCH (13:33)
[2024-04-28] MEDS: ASPIRIN 81 MG PO SCH (13:33)
--- NOTE | 2024-04-28 14:04 | P.CRDCN ---
History of Present Illness Consult date: 04/28/24 History of present illness: HISTORY OF PRESENTING ILLNESS 34-year-old female with past medical history of type 1 diabetes, diabetic nephropathy leading to ESRD on hemodialysis with minimal urine output, hypertension, depression, anxiety. She is established with Dr. Avila. Last she was hospitalized on 03/14/2024 with CHF exacerbation and shortness of breath. At that time she was moderately volume overloaded. During that admission her home medications were renewed without any changes and she was managed with fluid removal by hemodialysis. This time she presents to the hospital because of increased worsening shortness of breath. She gets hemodialysis 4 times per week. Her last hemodialysis was on Wednesday. On patient went to hemodialysis center where it was noticed that she was significantly short of breath and was found to be hypoxic therefore she did not get an outpatient hemodialysis and was sent to the hospital. She ended up getting hemodialysis in the hospital. She reports that since hemodialysis her shortness of breath has slightly improved. She describes her shortness of breath as orthopnea and paroxysmal nocturnal dyspnea. ECG showed sinus tachycardia with heart rate 110 bpm, possible left atrial dilatation, nonspecific ST changes. CXR showed significant bilateral pulmonary congestion. Labs shows sodium 135, potassium 4.4, troponin 0.09 with a [place] [address]. This is higher than her last admission 2 weeks ago when it was 23,000 BP 135/80, heart rate 92 REVIEW OF SYSTEMS 14 point review of system is negative except what is mentioned above in HPI. PHYSICAL EXAMINATION Vital signs reviewed. Head: Normocephalic. Eyes: Sclerae nonicteric. Neck: Brisk carotid upstroke, no jugular venous distention. Lungs: Clear to auscultation. Heart: Regular rate and rhythm, S1-S2, no S3, no murmur or rub. Abdomen: Soft nontender, positive bowel sounds. Extremities: No edema, intact distal pulses. Neuro: Alert, oritented, no focal deficits. Detailed neuro exam was not performed. ASSESSMENT Acute hypoxic respiratory failure due to flash pulmonary edema Acute HFpEF exacerbation Hypertensive urgency ESRD on hemodialysis Type 1 diabetes Depression Echo from December shows LVEF of 55 to 60%, mild MR, small pericardial effusion PLAN At home she is on clonidine 0.3 mg 3 times daily, minoxidil 2.5 mg daily, hydralazine 150 mg 3 times daily, nifedipine 60 mg twice daily, Imdur 30 mg daily, labetalol 400 mg twice daily, aspirin, atorvastatin. As patient's kidney function has failed to improved and is ESRD, there is no hope of further renal function recovery. At this stage I would recommend her to be started on Entresto for diastolic heart failure. This will give us opportunity to reduce her some of the second-line antihypertensive medications. She would also benefit from a cardioselective beta-stephanie like carvedilol rather than labetalol. I will discontinue her labetalol. I will reduce her clonidine to 0.1 mg 3 times daily. Instead I will start her on Entresto 49/51 mg twice daily and Coreg 25 mg twice daily. If patient tolerate these medications, neck step will be to increase Entresto to max dose and increase Coreg to 50 mg twice daily and take of other second line antihypertensives. Past Medical History Past Medical History: Diabetes Mellitus, GERD/Reflux, Hypertension, Renal Disease, Seizure Disorder, Thyroid Disorder Additional Past Medical History / Comment(s): Neuropathy, last seizure 2020, gastroparesis, headaches with dialysis, states "fast heart rate" since giving ., receives Hemodialysis Wednesday- and Saturdays at [facility] right chest hemodialysis catheter., severe HTN. patient awaiting Kidney and Pancrease Transplant. , states sometimes she has had stroke -like symptoms but no stroke., hx of c-diff 2013. History of Any Multi-Drug Resistant Organisms: None Reported Date of last positivie culture/infection: None MDRO Source:: None Past Surgical History: Adenoidectomy, Section, Cholecystectomy, Orthopedic Surgery, Tonsillectomy Additional Past Surgical History / Comment(s): 2 KNEE SCOPES, EAR TUBES, additional left knee surgery related to fracture, new port a cath jul 29, eye surgeries for diabetic retinopathy. Past Anesthesia/Blood Transfusion Reactions: Previous Problems w/ Anesthesia Additional Past Anesthesia/Blood Transfusion Reaction / Comment(s): confusion Past Psychological History: Anxiety, Depression Smoking Status: Former smoker Past Alcohol Use History: None Reported Additional Past Alcohol Use History / Comment(s): quit smoking 01/08 hx of up to 3 ppd. Past Drug Use History: Marijuana, Methamphetamine Additional Drug Use History / Comment(s): previously using marijuana edibles in nov 2023. Not eating currently - Past Family History Father History Unknown: Yes Family Medical History: Unable to Obtain Mother History Unknown: Yes Family Medical History: No Reported History Grandfather History Unknown: Yes Family Medical History: Coronary Artery Disease (CAD) Additional Family Medical History / Comment(s): Diabetes mellitus type 2 Medications and Allergies Home Medications Medication Instructions Recorded Confirmed Type Levothyroxine Sodium [Synthroid] 175 mcg PO DAILY@0600 10/22/23 04/27/24 History Sertraline [Zoloft] 200 mg PO DAILY@0800 10/22/23 04/27/24 History Atorvastatin [Lipitor] 40 mg PO HS@209912/27/23 04/27/24 History Divalproex ER [Depakote ER] 500 mg PO BID@0800,1700 12/27/23 04/27/24 History Ondansetron [Zofran] 4 mg PO Q8HR PRN 12/27/23 04/27/24 History Pantoprazole [Protonix] 40 mg PO DAILY@0600 12/27/23 04/27/24 History [place] Caps 1 cap PO HS@209912/27/23 04/27/24 History methocarbamoL [Robaxin-750] 750 mg PO QID@02,06,12,17 12/27/23 04/27/24 History Aspirin 81 mg PO DAILY@0800 02/05/24 04/27/24 History Docusate [Colace] 100 mg PO DAILY@0800 02/05/24 04/27/24 History Lidocaine 4% Patch 1 patch TOPICAL DAILY@0800 02/05/24 04/27/24 History Magnesium Hydroxide [Milk of 7,200 mg PO DAILY PRN 02/05/24 04/27/24 History Magnesia Concentrate] NIFEdipine XL [Procardia XL] 60 mg PO BID@0800,1700 02/05/24 04/27/24 History Sevelamer [Renvela] 1,600 mg PO AC-TID@07,11,1630 02/05/24 04/27/24 History bisacodyL [Dulcolax] 10 mg RECTAL DAILY PRN 02/05/24 04/27/24 History Ipratropium-Albuterol Nebulize 3 ml INHALATION RT-TID PRN each 02/14/24 04/27/24 Rx [Duoneb 0.5 mg-3 mg/3 ml Soln] Isosorbide Mononitrate ER [Imdur] 30 mg PO DAILY tab 02/14/24 04/27/24 Rx Metoclopramide [Reglan] 5 mg PO AC-TID tab 02/14/24 04/27/24 Rx polyethylene glycoL 3350 [Miralax] 17 gm PO AC-LUNCH #527 gm 02/14/24 04/27/24 Rx Acetaminophen [Tylenol] 650 mg PO Q4H PRN 02/18/24 04/27/24 History Biotene Dry Mouth/Throat 10 ml PO BID PRN 02/18/24 04/27/24 History Melatonin 1 mg PO HS tab 02/25/24 04/27/24 Rx hydrALAZINE HCL [Apresoline] 150 mg PO TID tab 02/25/24 04/27/24 Rx minoxidiL [Loniten] 2.5 mg PO DAILY tab 02/25/24 04/27/24 Rx traZODone HCL [Desyrel] 50 mg PO HS tab 02/25/24 04/27/24 Rx Butalb/APAP/Caff 50-325-40Mg 1 tab PO Q4HR PRN 03/14/24 04/27/24 History [Fioricet 50-325-40] Darbepoetin Artur [Aranesp] 40 mcg SQ MO 03/14/24 04/27/24 History Insulin Glargine [Lantus Vial] 25 unit SQ HS 03/14/24 04/27/24 History Sevelamer [Renvela] 800 mg PO HS 03/14/24 04/27/24 History cloNIDine HCL [Catapres] 0.3 mg PO TID 03/14/24 04/27/24 History ALPRAZolam [Xanax] 0.5 mg PO BID PRN #4 tab 03/30/24 04/27/24 Rx Ciprofloxacin-Dexameth [Ciprodex 4 drops RIGHT EAR BID ml 03/30/24 04/27/24 Rx Otic Susp] Loratadine [Claritin] 5 mg PO DAILY tab 03/30/24 04/27/24 Rx INSULIN ASPART (NovoLOG) [NovoLOG See Protocol SQ ACHS 04/16/24 04/27/24 History (formulary)] Acetaminophen-Codeine 300-30mg 1 tab PO Q6HR PRN 3 Days #12 tab 04/17/24 04/27/24 Rx [Tylenol w/codeine #3] Labetalol [Trandate] 400 mg PO BID@0800,1700 7 Days #14 04/17/24 04/27/24 Rx tab Allergies Allergy/AdvReac Type Severity Reaction Status Date / Time hydromorphone HCl Allergy Anaphylaxis Verified 04/27/24 09:49 [From Dilaudid] propoxyphene Allergy Rash/Hives Verified 04/27/24 09:49 [From Darvocet-N] tramadol Allergy Anaphylaxis Verified 04/27/24 09:49 ibuprofen [From Motrin] AdvReac unable to Verified 04/27/24 09:49 take due to kidney disease venom-honey bee AdvReac passes out Verified 04/27/24 09:49 [bee venom (honey bee)] Physical Exam Vitals: Vital Signs Temp Pulse Pulse Resp BP BP Pulse Ox 04/28/24 13:31 96.9 F L 92 16 135/80 99 04/28/24 11:40 99 04/28/24 11:00 79 16 125/77 96 04/28/24 10:28 97.4 F L 87 16 175/100 100 04/28/24 08:27 97.4 F L 87 16 175/100 100 04/28/24 08:08 04/28/24 07:38 95 18 182/115 95 04/28/24 05:41 94 15 169/106 100 04/28/24 03:50 73 15 161/97 100 04/28/24 03:35 04/28/24 01:14 82 20 152/93 97 04/27/24 23:48 04/27/24 21:48 89 18 156/84 99 04/27/24 19:57 04/27/24 17:16 90 16 176/108 100 04/27/24 15:38 98 F 87 19 199/78 04/27/24 15:28 80 16 148/115 99 04/27/24 14:44 FiO2 04/28/24 13:31 04/28/24 11:40 04/28/24 11:00 04/28/24 10:28 40 04/28/24 08:27 40 04/28/24 08:08 40 04/28/24 07:38 04/28/24 05:41 04/28/24 03:50 04/28/24 03:35 40 04/28/24 01:14 04/27/24 23:48 40 04/27/24 21:48 04/27/24 19:57 40 04/27/24 17:16 04/27/24 15:38 04/27/24 15:28 04/27/24 14:44 40 Intake and Output 04/27/24 04/28/24 04/28/24 22:59 06:59 14:59 Intake Total 500 358 Output Total 4500 Balance -4000 358 Intake: Oral 358 Hemodialysis 500 Output: Hemodialysis 4500 Other: Voiding Method Toilet Weight 76.43 kg Results 04/27/24 06:52 04/28/24 11:00 Cardiac Enzymes 04/27/24 Range/Units 14:47 Troponin I 0.097 H* (0.000-0.034) ng/mL Comprehensive Metabolic Panel 04/28/24 Range/Units 11:00 Sodium 135 L (137-145) mmol/L Potassium 3.6 (3.5-5.1) mmol/L Chloride 93 L (98-107) mmol/L Carbon Dioxide 33 H (22-30) mmol/L BUN 22 H (7-17) mg/dL Creatinine 4.27 H (0.52-1.04) mg/dL Glucose 143 H (74-99) mg/dL Calcium 9.3 (8.4-10.2) mg/dL Current Medications Generic Name Dose Route Start Last Admin Trade Name Freq PRN Reason Stop Dose Admin Acetaminophen 650 mg 04/27/24 10:52 Acetaminophen Tab 325 Mg Tab PO Q4H PRN Pain or Fever > 100.5 Acetaminophen/Butalbital/Caffeine 1 each 04/27/24 10:52 Butalb/Apap/Caff 50-325-40mg Tab PO Q4HR PRN Headache Acetaminophen/Codeine Phosphate 1 each 04/27/24 10:52 04/28/24 13:33 Acetaminophen-Codeine 300-30mg Tab PO 1 each Q6HR PRN Administration Pain Albuterol/Ipratropium 3 ml 04/27/24 10:52 Ipratropium-Albuterol 3 Ml Neb INHALATION RT-TID PRN Shortness Of Breath Or Wheezing Alprazolam 0.5 mg 04/27/24 10:52 04/27/24 12:31 Alprazolam 0.5 Mg Tab PO 0.5 mg BID PRN Administration Anxiety Aspirin 81 mg 04/28/24 08:00 04/28/24 13:33 Aspirin 81 Mg PO 81 mg DAILY@0800 [facility] Administration Atorvastatin Calcium 40 mg 04/27/24 21:00 04/27/24 21:51 Atorvastatin 40 Mg Tab PO 40 mg HS@2100 [facility] Administration Bisacodyl 10 mg 04/27/24 10:52 Bisacodyl 10 Mg Supp RECTAL DAILY PRN Constipation Carvedilol 25 mg 04/28/24 17:30 Carvedilol 12.5 Mg Tab PO BID-W/MEALS [facility] Ciprofloxacin/Dexamethasone 4 drops 04/27/24 21:00 04/28/24 09:12 Ciprofloxacin-Dexameth 0.3-0.1% Drops 7.5 Ml Btl RIGHT EAR 05/04/24 09:01 4 drops BID [facility] Administration Clonidine 0.1 mg 04/28/24 16:00 Clonidine Hcl 0.1 Mg Tab PO TID [facility] Darbepoetin Artur 40 mcg 05/01/24 09:00 Darbepoetin Artur 40 Mcg/0.4 Ml Syringe SQ MO [facility] Divalproex Sodium 500 mg 04/27/24 17:00 04/28/24 09:13 Divalproex Er 500 Mg Tab.Er.24h PO 500 mg BID@0800,1700 [facility] Administration Docusate Sodium 100 mg 04/28/24 08:00 04/28/24 09:13 Docusate 100 Mg Cap PO 100 mg DAILY@0800 [facility] Administration Heparin Sodium (Porcine) 5,000 unit 04/27/24 21:00 04/28/24 09:14 Heparin Sodium,Porcine 5,000 Unit/Ml 1 Ml Vial SQ Not Given Q12HR [facility] Hydralazine HCl 150 mg 04/27/24 16:00 04/27/24 21:52 Hydralazine Hcl 50 Mg Tab PO 150 mg TID [facility] Administration Insulin Aspart 0 unit 04/27/24 12:30 04/28/24 12:21 Insulin Aspart (Novolog) 100 Unit/Ml Vial SQ Not Given AC-TID [facility] Protocol Insulin Detemir 25 unit 04/27/24 21:00 04/27/24 21:52 Insulin Detemir (Levemir) 100 Unit/Ml Syr SQ 25 unit HS [facility] Administration Isosorbide Mononitrate 30 mg 04/28/24 09:00 04/28/24 09:12 Isosorbide Mononitrate Er 30 Mg Tab.Er.24h PO 30 mg DAILY [facility] Administration Levothyroxine Sodium 176 mcg 04/28/24 06:00 04/28/24 05:42 Levothyroxine 88 Mcg Tab PO 176 mcg DAILY@0600 [facility] Administration Lidocaine 1 patch 04/28/24 08:00 04/28/24 09:04 Lidocaine 4% Patch TOPICAL Not Given DAILY@0800 [facility] Protocol Loratadine 5 mg 04/28/24 09:00 04/28/24 09:13 Loratadine 10 Mg Tab PO 5 mg DAILY [facility] Administration Magnesium Hydroxide 7,200 mg 04/27/24 10:52 Magnesium Hydroxide 2,400 Mg/30 Ml Cup PO DAILY PRN Constipation Melatonin 1 mg 04/27/24 21:00 04/27/24 21:51 Melatonin 1 Mg Tab PO 1 mg HS [facility] Administration Methocarbamol 750 mg 04/27/24 12:00 04/28/24 13:38 Methocarbamol 750 Mg Tab PO 750 mg QID@02,06,12,17 [facility] Administration Metoclopramide HCl 5 mg 04/27/24 12:30 04/28/24 13:33 Metoclopramide 5 Mg Tab PO 5 mg AC-TID [facility] Administration Multivit/Ca Carb/B Cmplx/FA/Prenat 1 each 04/27/24 21:00 04/27/24 21:52 Folic Acid-Vit B Complex-Vit C 1 Cap PO 1 each HS@2100 [facility] Administration Naloxone HCl 0.2 mg 04/27/24 08:08 Naloxone 0.4 Mg/Ml 1 Ml Vial IV Q2M PRN Opioid Reversal Nifedipine 60 mg 04/27/24 17:00 04/28/24 09:14 Nifedipine Xl 60 Mg Tab.Er.24 PO 60 mg BID@0800,1700 [facility] Administration Ondansetron HCl 4 mg 04/27/24 08:08 04/28/24 09:19 Ondansetron 4 Mg/2 Ml Vial IVP 4 mg Q8HR PRN Administration Nausea And Vomiting Ondansetron HCl 4 mg 04/27/24 10:52 Ondansetron 4 Mg Tab PO Q8HR PRN Nausea And Vomiting Pantoprazole Sodium 40 mg 04/28/24 06:00 04/28/24 05:45 Pantoprazole 40 Mg Tablet PO 40 mg DAILY@0600 [facility] Administration Polyethylene Glycol 17 gm 04/27/24 12:30 04/28/24 12:15 Polyethylene Glycol 3350 17 Gm Powd.Pack PO Not Given AC-LUNCH VY Sacubitril/Valsartan 1 each 04/28/24 18:00 Sacubitril/Valsartan 49 Mg-51 Mg Tablet PO BID [facility]Y Saliva Substitute 3 spray 04/27/24 10:52 Dry Mouth [place] 44.3 [place]/44.3 Ml [place] MUCOUS MEM BID PRN DRY MOUTH/THROAT Sertraline HCl 200 mg 04/28/24 08:00 04/28/24 13:33 Sertraline 100 Mg Tab PO 200 mg DAILY@0800 [facility] Administration Sevelamer Carbonate 800 mg 04/27/24 21:00 04/27/24 21:51 Sevelamer 800 Mg Tab PO 800 mg HS [facility] Administration Sevelamer Carbonate 1,600 mg 04/27/24 11:00 04/28/24 13:33 Sevelamer 800 Mg Tab PO 1,600 mg AC-TID@07,11,1630 [facility] Administration Trazodone HCl 50 mg 04/27/24 21:00 04/27/24 21:51 Trazodone Hcl 50 Mg Tab PO 50 mg HS [facility]Y Administration Intake and Output 04/27/24 04/28/24 04/28/24 22:59 06:59 14:59 Intake Total 500 358 Output Total 4500 Balance -4000 358 Intake: Oral 358 Hemodialysis 500 Output: Hemodialysis 4500 Other: Voiding Method Toilet Weight 76.43 kg Patient Weight 04/29/24 06:59 Weight 76.43 kg 04/27/24 06:52 04/28/24 11:00
[2024-04-28] MEDS: cloNIDine HCL 0.1 MG TAB PO SCH (15:49)
[2024-04-28 16:52] LABS: Glucose,Whole Blood 524 mg/dL (70-110)
[2024-04-28] MEDS: SACUBITRIL/VALSARTAN 49 MG-51 MG TABLET PO SCH (17:25)
[2024-04-28] MEDS: carvediloL 12.5 MG TAB PO SCH (17:25)
[2024-04-28] MEDS: INSULIN DETEMIR (LEVEMIR) 100 UNIT/ML SYR SQ ONE ×2 (17:48→20:53)
--- NOTE | 2024-04-28 17:54 | P.PN ---
Subjective Patient is seen for follow-up for end-stage renal disease. Currently seen on hemodialysis. Patient states that she had IV contrast on redness today for a CT and developed significant shortness of breath following the procedure. She had only about 1 to 1.4 kg weight gain between her dialysis treatment earlier this week. Patient tolerated 4.5 L of UF yesterday and is set for about 4 L again today. Objective - Vital Signs Vital signs: Vital Signs Temp 97.6 F 04/28/24 17:18 Pulse 86 04/28/24 17:18 Resp 16 04/28/24 17:18 BP 149/82 04/28/24 17:18 Pulse Ox 98 04/28/24 15:48 FiO2 40 04/28/24 10:28 Intake & Output 04/27/24 04/28/24 04/28/24 18:59 06:59 18:59 Intake Total 500 976 Output Total 4500 4200 Balance -4000 -3224 Weight 76.43 kg Intake: Oral 476 Hemodialysis 500 500 Output: Hemodialysis 4500 4200 Other: Voiding Method Toilet # Voids 1 - Exam patient is awake. Examination of the heart S1 and S2 Examination of the lungs decreased breath sounds at the bases Abdomen is soft nontender Examination of lower extremity shows edema trace bilaterally DIAGNOSTIC RADIOLOGIST exam grossly intact - Labs CBC & Chem 7: 04/27/24 06:52 04/28/24 11:00 Labs: Abnormal Lab Results - Last 24 Hours (Table) 04/28/24 04/28/24 04/28/24 Range/Units 07:47 11:00 12:16 Sodium 135 L (137-145) mmol/L Chloride 93 L (98-107) mmol/L Carbon Dioxide 33 H (22-30) mmol/L BUN 22 H (7-17) mg/dL Creatinine 4.27 H (0.52-1.04) mg/dL Glucose 143 H (74-99) mg/dL POC Glucose (mg/dL) 219 H 128 H (70-110) mg/dL 04/28/24 Range/Units 16:50 Sodium (137-145) mmol/L Chloride (98-107) mmol/L Carbon Dioxide (22-30) mmol/L BUN (7-17) mg/dL Creatinine (0.52-1.04) mg/dL Glucose (74-99) mg/dL POC Glucose (mg/dL) 524 H* (70-110) mg/dL Assessment and Plan Assessment: 1. End-stage renal disease on hemodialysis 4 times a week as outpatient. 2. Volume overload. Patient has been advised multiple times regarding salt and fluid restriction. Received IV contrast for a CT on Wednesday and patient reports significant shortness of breath post procedure. This was done as outpatient. 3. Acute hypoxic respiratory failure secondary to CHF and volume overload 4. Diabetic gastroparesis 5. CK D mineral bone disorder Plan: hemodialysis today with goal UF 4 L and repeat in a.m. We will continue to work with her as outpatient to maintain her goal dry weight. Possible discharge tomorrow after hemodialysis.
[2024-04-28 20:03] LABS: Glucose,Whole Blood 541 mg/dL (70-110)
[2024-04-28 20:03] LABS: Glucose,Whole Blood 557 mg/dL (70-110)
[2024-04-28] MEDS: BACLOFEN 10 MG TAB PO PRN (20:55)
[2024-04-28] MEDS: IPRATROPIUM-ALBUTEROL 3 ML NEB INHALATION PRN (20:56)
[2024-04-28] MEDS ORDERED: Magnesium Replacement Protocol 1 EACH MISC MISCELLANE PRN (21:38)
--- NOTE | 2024-04-28 21:43 | P.PN ---
Subjective Progress Note Date: 04/28/24 34-year-old female who returns renal disease for type hemodialysis a week did not miss any hemodialysis that came in with volume overload acute respiratory failure requiring BiPAP. Patient has extensive pulm edema on the chest x-ray. Patient is undergoing hemodialysis with removal of 4.5 L. Patient is found to have highly elevated blood pressure with systolics going into 220. Patient blood pressure is slightly better now. Patient was hypoxic with saturations in 70%. Patient has multiple hospitalizations for the same problem apparently patient is noncompliant with diet and fluid restriction recommendations. 04/28/2024 Patient is evaluated today resting in bed. Reports feeling less short of breath. Patient currently undergoing hemodialysis. Patient reporting significant lower extremity pain and cramping. Also headache. Blood glucose in the 500s. Magnesium 1.8. Review of Systems Constitutional: Denied any fatigue denied any fever. Cardio vascular: denied any chest pain, palpitations Gastrointestinal: denied any nausea, vomiting, diarrhea Pulmonary: Denied any shortness of breath cough Neurologic denied any new focal deficits All inpatient medications were reviewed and appropriate changes in these medications as dictated in the interval history and assessment and plan. PHYSICAL EXAMINATION: GENERAL: The patient is alert and oriented x3, not in any acute distress. Well developed, well nourished. On BiPAP is in some discomfort HEENT: Pupils are round and equally reacting to light. EOMI. No scleral icterus. No conjunctival pallor. Normocephalic, atraumatic. No pharyngeal erythema. No thyromegaly. CARDIOVASCULAR: S1 and S2 present. No murmurs, rubs, or gallops. PULMONARY: Extensive bilateral crackles ABDOMEN: Soft, nontender, nondistended, normoactive bowel sounds. No palpable organomegaly. MUSCULOSKELETAL: No joint swelling or deformity. EXTREMITIES: No cyanosis, clubbing, or pedal edema. NEUROLOGICAL: Gross neurological examination did not reveal any focal deficits. SKIN: No rashes. Assessment and plan -Acute hypoxic respiratory failure requiring BiPAP secondary to pulmonary edema from end-stage renal disease patient is undergoing hemodialysis at this time with removal of 4 L of fluid so far currently undergoing hemodialysis today. -Hypertensive urgency uncontrolled elevated blood pressures patient was resumed on home regimen her blood pressure is still elevated but will continue with the home regimen and monitor expected to improve with hemodialysis. -Diabetes mellitus with diabetic nephropathy end-stage renal disease patient will be resumed on home regimen along with sliding scale -Uncontrolled diabetes increasing levemir and add scheduled insulin -Seizure disorder -Hypothyroidism -End-stage renal disease -Depression For above-mentioned chronic medical problems patient resumed on appropriate home medications DVT prophylaxis: Subcutaneous heparin The impression and plan of care has been dictated by Yeni Blackburn, Nurse Practitioner as directed. Dr. Connie MD I have performed a history and physical examination and medical decision making of this patient, discussed the same with the dictator, and agree with the dictators assessment and plan as written, documented as a scribe. Based on total visit time, I have performed more than 50% of this visit. Objective - Vital Signs Vital signs: Vital Signs Temp 96.9 F L 04/28/24 13:31 Pulse 92 04/28/24 13:31 Resp 16 04/28/24 13:31 BP 135/80 04/28/24 13:31 Pulse Ox 99 04/28/24 13:31 FiO2 40 04/28/24 10:28 Intake & Output 04/27/24 04/28/24 04/28/24 18:59 06:59 18:59 Intake Total 500 476 Output Total 4500 Balance -4000 476 Weight 76.43 kg Intake: Oral 476 Hemodialysis 500 Output: Hemodialysis 4500 Other: Voiding Method Toilet # Voids 1 - Labs CBC & Chem 7: 04/27/24 06:52 04/28/24 11:00 Labs: Abnormal Lab Results - Last 24 Hours (Table) 04/27/24 04/27/24 04/28/24 Range/Units 14:47 17:38 07:47 Sodium (137-145) mmol/L Chloride (98-107) mmol/L Carbon Dioxide (22-30) mmol/L BUN (7-17) mg/dL Creatinine (0.52-1.04) mg/dL Glucose (74-99) mg/dL POC Glucose (mg/dL) 199 H 219 H (70-110) mg/dL Troponin I 0.097 H* (0.000-0.034) ng/mL 04/28/24 04/28/24 Range/Units 11:00 12:16 Sodium 135 L (137-145) mmol/L Chloride 93 L (98-107) mmol/L Carbon Dioxide 33 H (22-30) mmol/L BUN 22 H (7-17) mg/dL Creatinine 4.27 H (0.52-1.04) mg/dL Glucose 143 H (74-99) mg/dL POC Glucose (mg/dL) 128 H (70-110) mg/dL Troponin I (0.000-0.034) ng/mL Assessment and Plan Time with Patient: Less than 30
[2024-04-28 23:01] LABS: Glucose,Whole Blood 430 mg/dL (70-110)
[2024-04-28] MEDS: MAGNESIUM SULFATE-D5W PMX 1 GM in DEXTROSE/WATER 1 100ML.BAG IVPB ONE (23:11)
[2024-04-29 01:57] LABS: Glucose,Whole Blood 245 mg/dL (70-110)
[2024-04-29 06:09] LABS: Glucose,Whole Blood 34 mg/dL (70-110)
[2024-04-29 06:09] LABS: Glucose,Whole Blood 38 mg/dL (70-110)
[2024-04-29] MEDS: DEXTROSE 50% SYRINGE 50 ML IVP ONE ×2 (06:12→10:04)
[2024-04-29 06:16] LABS: Glucose,Whole Blood 169 mg/dL (70-110)
[2024-04-29 06:31] LABS: Glucose,Whole Blood 107 mg/dL (70-110)
[2024-04-29 07:12] LABS: Glucose,Whole Blood 63 mg/dL (70-110)
[2024-04-29 07:30] LABS: Glucose,Whole Blood 74 mg/dL (70-110)
[2024-04-29 10:01] LABS: Glucose,Whole Blood 43 mg/dL (70-110)
[2024-04-29] MEDS ORDERED: DEXTROSE 50% SYRINGE 50 ML IVP PRN ×2 (10:01)
[2024-04-29 10:27] LABS: Glucose,Whole Blood 127 mg/dL (70-110)
[2024-04-29 11:24] LABS: Anisocytosis Slight; Basophils # (A) 0.1 k/uL (0-0.2); Basophils % (A) 1 %; Eosinophils # (A) 1.2 k/uL (0-0.7); Eosinophils % (A) 12 %; HGB 8.8 gm/dL (11.4-16.0); Hypochromasia Slight; Lymphocytes # (A) 1.2 k/uL (1.0-4.8); Lymphocytes % (A) 12 %; MCH 31.4 pg (25.0-35.0); MCHC 31.3 g/dL (31.0-37.0); MCV 100.3 fL (80.0-100.0); Macrocytosis Slight; Mean Platelet Volume 8.5; Monocytes # (A) 0.6 k/uL (0-1.0); Monocytes % (A) 6 %; Neutrophils # (A) 6.8 k/uL (1.3-7.7); Neutrophils % (A) 68 %; Platelet Count 371 k/uL (150-450); RBC 2.79 m/uL (3.80-5.40)
[2024-04-29 11:42] LABS: Glucose,Whole Blood 75 mg/dL (70-110)
[2024-04-29 11:50] LABS: African American GFR (CKD) 19 (>60 ml/min/1.73 sqM); Anion Gap 4 mmol/L; Blood Urea Nitrogen 29 mg/dL (7-17); Calcium 8.7 mg/dL (8.4-10.2); Carbon Dioxide 32 mmol/L (22-30); Chloride 95 mmol/L (98-107); Glucose 91 mg/dL (74-99); Non-African American GFR(CKD) 16 (>60 ml/min/1.73 sqM); Sodium 131 mmol/L (137-145)
[2024-04-29 11:52] LABS: Magnesium 2.1 mg/dL (1.6-2.3); Potassium 5.1 mmol/L (3.5-5.1)
[2024-04-29 12:31] LABS: Appearance,Urine Clear (Clear); Bilirubin,Urine Negative (Negative); Blood,Urine Trace (Negative); Color,Urine Light Yellow; Glucose,Urine (UA) 4+ (Negative); Ketones,Urine Negative (Negative); Leukocyte Esterase,Urine Negative (Negative); Mucus,Urine Rare /hpf; Nitrite,Urine Negative (Negative); PH, Urine 7.5 (5.0-8.0); Protein,Urine 3+ (Negative); RBC,Urine <1 /hpf (0-5); Specific Gravity,Urine 1.012 (1.001-1.035); Squamous Epithelial Cell,Urine 6 /hpf (0-4); Urobilinogen,Urine <2.0 mg/dL (<2.0); WBC,Urine 9 /hpf (0-5)
[2024-04-29 13:18] LABS: Glucose,Whole Blood 90 mg/dL (70-110)
--- NOTE | 2024-04-29 13:58 | P.PN ---
Subjective Progress Note Date: 04/29/24 HISTORY OF PRESENTING ILLNESS 34-year-old female with past medical history of type 1 diabetes, diabetic ne phropathy leading to ESRD on hemodialysis with minimal urine output, hypertension, depression, anxiety. She is established with Dr. Avila. Last she was hospitalized on 03/14/2024 with CHF exacerbation and shortness of breath. At that time she was moderately volume overloaded. During that admiss ion her home medications were renewed without any changes and she was managed with fluid removal by hemodialysis. This time she presents to the hospital because of increased worsening shortness of breath. She gets hemodialysis 4 times per week. Her last hemodialysis was on Wednesday. On patient went to hemodialysis center where it was noticed that she was significantly short of breath and was found to be hypoxic therefore she did not get an outpatient hemodialysis and was sent to the hospital. She ended up getting hemodialysis in the hospital. She reports that since hemodialysis her shortness of breath has slightly improved. She describes her shortness of breath as orthopnea and paroxysmal nocturnal dyspnea. ECG showed sinus tachycardia with heart rate 110 bpm, possible left atrial dilatation, nonspecific ST changes. CXR showed significant bilateral pulmonary congestion. Labs shows sodium 135, potassium 4.4, troponin 0.09 with a [place] [address]. This is higher than her last admission 2 weeks ago when it was 23,000 BP 135/80, heart rate 92 Progress note April 29, 2024 Blood pressure 120/76, heart rate 72 bpm, patient tolerated the changes in the medication made yesterday. Hemoglobin 8.8. No active signs of bleeding. Tolerated hemodialysis well yesterday. Reports that shortness of breath is resolved back to baseline. Appears somewhat euvolemic REVIEW OF SYSTEMS 14 point review of system is negative except what is mentioned above in HPI. PHYSICAL EXAMINATION Vital signs reviewed. Head: Normocephalic. Eyes: Sclerae nonicteric. Neck: Brisk carotid upstroke, no jugular venous distention. Lungs: Clear to auscultation. Heart: Regular rate and rhythm, S1-S2, no S3, no murmur or rub. Abdomen: Soft nontender, positive bowel sounds. Extremities: Plus edema bilateral lower extremity Neuro: Alert, oritented, no focal deficits. Detailed neuro exam was not performed. ASSESSMENT Acute hypoxic respiratory failure due to flash pulmonary edema Acute HFpEF exacerbation Hypertensive urgency ESRD on hemodialysis Type 1 diabetes Depression Echo from December shows LVEF of 55 to 60%, mild MR, small pericardial effusion PLAN At home she is on clonidine 0.3 mg 3 times daily, minoxidil 2.5 mg daily, hydralazine 150 mg 3 times daily, nifedipine 60 mg twice daily, Imdur 30 mg daily, labetalol 400 mg twice daily, aspirin, atorvastatin. As patient's kidney function has failed to improved and is ESRD, there is no hope of further renal function recovery. At this stage I would recommend her to be started on Entresto for diastolic heart failure. This will give us opportunity to reduce her some of the second-line antihypertensive medications. She would also benefit from a cardioselective beta-stephanie like carvedilol rather than labetalol. I will discontinue her labetalol. I will reduce her clonidine to 0.1 mg 3 times daily. Instead I will start her on Entresto 49/51 mg twice daily and Coreg 25 mg twice daily. If patient tolerate these medications, neck step will be to increase Entresto to max dose and increase Coreg to 50 mg twice daily and take of other second line antihypertensives. Objective - Vital Signs Vital signs: Vital Signs Temp 97.7 F 04/29/24 07:20 Pulse 79 04/29/24 11:52 Resp 18 04/29/24 11:52 BP 124/73 04/29/24 11:52 Pulse Ox 100 04/29/24 11:52 FiO2 40 04/29/24 03:36 Intake & Output 04/28/24 04/29/24 04/29/24 18:59 06:59 18:59 Intake Total 1516 580 Output Total 4200 80 Balance -2684 500 Weight 76.43 kg 69.3 kg Intake: Oral 1016 580 Hemodialysis 500 Output: Urine 80 Hemodialysis 4200 Other: Voiding Method Toilet Toilet Toilet # Voids 1 - Labs CBC & Chem 7: 04/29/24 10:46 04/29/24 10:46 Labs: Abnormal Lab Results - Last 24 Hours (Table) 04/28/24 04/28/24 04/28/24 Range/Units 16:50 20:00 20:02 RBC (3.80-5.40) m/uL Hgb (11.4-16.0) gm/dL Hct (34.0-46.0) % MCV (80.0-100.0) fL RDW (11.5-15.5) % Eosinophils # (0-0.7) k/uL Sodium (137-145) mmol/L Chloride (98-107) mmol/L Carbon Dioxide (22-30) mmol/L BUN (7-17) mg/dL Creatinine (0.52-1.04) mg/dL POC Glucose (mg/dL) 524 H* 541 H* 557 H* (70-110) mg/dL Urine Protein (Negative) Urine Glucose (UA) (Negative) Urine Blood (Negative) Urine WBC (0-5) /hpf Ur Squamous Epith Cells (0-4) /hpf Urine Mucus (None) /hpf 04/28/24 04/29/24 04/29/24 Range/Units 23:00 01:56 06:07 RBC (3.80-5.40) m/uL Hgb (11.4-16.0) gm/dL Hct (34.0-46.0) % MCV (80.0-100.0) fL RDW (11.5-15.5) % Eosinophils # (0-0.7) k/uL Sodium (137-145) mmol/L Chloride (98-107) mmol/L Carbon Dioxide (22-30) mmol/L BUN (7-17) mg/dL Creatinine (0.52-1.04) mg/dL POC Glucose (mg/dL) 430 H 245 H 38 L* (70-110) mg/dL Urine Protein (Negative) Urine Glucose (UA) (Negative) Urine Blood (Negative) Urine WBC (0-5) /hpf Ur Squamous Epith Cells (0-4) /hpf Urine Mucus (None) /hpf 04/29/24 04/29/24 04/29/24 Range/Units 06:08 06:15 07:09 RBC (3.80-5.40) m/uL Hgb (11.4-16.0) gm/dL Hct (34.0-46.0) % MCV (80.0-100.0) fL RDW (11.5-15.5) % Eosinophils # (0-0.7) k/uL Sodium (137-145) mmol/L Chloride (98-107) mmol/L Carbon Dioxide (22-30) mmol/L BUN (7-17) mg/dL Creatinine (0.52-1.04) mg/dL POC Glucose (mg/dL) 34 L* 169 H 63 L (70-110) mg/dL Urine Protein (Negative) Urine Glucose (UA) (Negative) Urine Blood (Negative) Urine WBC (0-5) /hpf Ur Squamous Epith Cells (0-4) /hpf Urine Mucus (None) /hpf 04/29/24 04/29/24 04/29/24 Range/Units 09:59 10:25 10:46 RBC 2.79 L (3.80-5.40) m/uL Hgb 8.8 L (11.4-16.0) gm/dL Hct 28.0 L (34.0-46.0) % MCV 100.3 H (80.0-100.0) fL RDW 17.0 H (11.5-15.5) % Eosinophils # 1.2 H (0-0.7) k/uL Sodium (137-145) mmol/L Chloride (98-107) mmol/L Carbon Dioxide (22-30) mmol/L BUN (7-17) mg/dL Creatinine (0.52-1.04) mg/dL POC Glucose (mg/dL) 43 L* 127 H (70-110) mg/dL Urine Protein (Negative) Urine Glucose (UA) (Negative) Urine Blood (Negative) Urine WBC (0-5) /hpf Ur Squamous Epith Cells (0-4) /hpf Urine Mucus (None) /hpf 04/29/24 04/29/24 Range/Units 10:46 12:11 RBC (3.80-5.40) m/uL Hgb (11.4-16.0) gm/dL Hct (34.0-46.0) % MCV (80.0-100.0) fL RDW (11.5-15.5) % Eosinophils # (0-0.7) k/uL Sodium 131 L (137-145) mmol/L Chloride 95 L (98-107) mmol/L Carbon Dioxide 32 H (22-30) mmol/L BUN 29 H (7-17) mg/dL Creatinine 3.52 H (0.52-1.04) mg/dL POC Glucose (mg/dL) (70-110) mg/dL Urine Protein 3+ H (Negative) Urine Glucose (UA) 4+ H (Negative) Urine Blood Trace H (Negative) Urine WBC 9 H (0-5) /hpf Ur Squamous Epith Cells 6 H (0-4) /hpf Urine Mucus Rare H (None) /hpf
[2024-04-29 16:52] LABS: Glucose,Whole Blood 205 mg/dL (70-110)
[2024-04-29 17:56] VITALS: PULSE 95
[2024-04-29 18:11] VITALS: BP 154/89; RESP 17; TEMP 98.6
--- NOTE | 2024-04-29 19:25 | P.PN ---
Subjective Progress Note Date: 04/29/24 Patient is seen for follow-up for end-stage renal disease. Patient states that she had IV contrast on redness today for a CT and developed significant shortness of breath following the procedure. She had only about 1 to 1.4 kg weight gain between her dialysis treatment earlier this week. Seen while on HD today Patient is awake. Examination of the heart S1 and S2 Examination of the lungs decreased breath sounds at the bases Abdomen is soft nontender Examination of lower extremity shows edema trace bilaterally [employer] exam grossly intact Objective - Vital Signs Vital signs: Vital Signs Temp 97.7 F 04/29/24 07:20 Pulse 82 04/29/24 07:20 Resp 18 04/29/24 07:20 BP 150/97 04/29/24 07:20 Pulse Ox 100 04/29/24 07:20 FiO2 40 04/29/24 03:36 Intake & Output 04/28/24 04/29/24 04/29/24 18:59 06:59 18:59 Intake Total 1516 358 Output Total 4200 Balance -2684 358 Weight 76.43 kg 69.3 kg Intake: Oral 1016 358 Hemodialysis 500 Output: Hemodialysis 4200 Other: Voiding Method Toilet Toilet Toilet # Voids 1 - Labs CBC & Chem 7: 04/29/24 10:46 04/29/24 10:46 Labs: Abnormal Lab Results - Last 24 Hours (Table) 04/28/24 04/28/24 04/28/24 Range/Units 11:00 12:16 16:50 RBC (3.80-5.40) m/uL Hgb (11.4-16.0) gm/dL Hct (34.0-46.0) % MCV (80.0-100.0) fL RDW (11.5-15.5) % Eosinophils # (0-0.7) k/uL Sodium 135 L (137-145) mmol/L Chloride 93 L (98-107) mmol/L Carbon Dioxide 33 H (22-30) mmol/L BUN 22 H (7-17) mg/dL Creatinine 4.27 H (0.52-1.04) mg/dL Glucose 143 H (74-99) mg/dL POC Glucose (mg/dL) 128 H 524 H* (70-110) mg/dL 04/28/24 04/28/2424 Range/Units 20:00 20:02 23:00 RBC (3.80-5.40) m/uL Hgb (11.4-16.0) gm/dL Hct (34.0-46.0) % MCV (80.0-100.0) fL RDW (11.5-15.5) % Eosinophils # (0-0.7) k/uL Sodium (137-145) mmol/L Chloride (98-107) mmol/L Carbon Dioxide (22-30) mmol/L BUN (7-17) mg/dL Creatinine (0.52-1.04) mg/dL Glucose (74-99) mg/dL POC Glucose (mg/dL) 541 H* 557 H* 430 H (70-110) mg/dL 04/29/24 04/29/24 04/29/24 Range/Units 01:56 06:07 06:08 RBC (3.80-5.40) m/uL Hgb (11.4-16.0) gm/dL Hct (34.0-46.0) % MCV (80.0-100.0) fL RDW (11.5-15.5) % Eosinophils # (0-0.7) k/uL Sodium (137-145) mmol/L Chloride (98-107) mmol/L Carbon Dioxide (22-30) mmol/L BUN (7-17) mg/dL Creatinine (0.52-1.04) mg/dL Glucose (74-99) mg/dL POC Glucose (mg/dL) 245 H 38 L* 34 L* (70-110) mg/dL 04/29/24 04/29/24 04/29/24 Range/Units 06:15 07:09 09:59 RBC (3.80-5.40) m/uL Hgb (11.4-16.0) gm/dL Hct (34.0-46.0) % MCV (80.0-100.0) fL RDW (11.5-15.5) % Eosinophils # (0-0.7) k/uL Sodium (137-145) mmol/L Chloride (98-107) mmol/L Carbon Dioxide (22-30) mmol/L BUN (7-17) mg/dL Creatinine (0.52-1.04) mg/dL Glucose (74-99) mg/dL POC Glucose (mg/dL) 169 H 63 L 43 L* (70-110) mg/dL 04/29/24 04/29/24 Range/Units 10:25 10:46 RBC 2.79 L (3.80-5.40) m/uL Hgb 8.8 L (11.4-16.0) gm/dL Hct 28.0 L (34.0-46.0) % MCV 100.3 H (80.0-100.0) fL RDW 17.0 H (11.5-15.5) % Eosinophils # 1.2 H (0-0.7) k/uL Sodium (137-145) mmol/L Chloride (98-107) mmol/L Carbon Dioxide (22-30) mmol/L BUN (7-17) mg/dL Creatinine (0.52-1.04) mg/dL Glucose (74-99) mg/dL POC Glucose (mg/dL) 127 H (70-110) mg/dL Assessment and Plan Assessment: 1. End-stage renal disease on hemodialysis 4 times a week as outpatient. 2. Volume overload. Patient has been advised multiple times regarding salt and fluid restriction. Received IV contrast for a CT on Wednesday and patient reports significant shortness of breath post procedure. This was done as outpatient. 3. Acute hypoxic respiratory failure secondary to CHF and volume overload 4. Diabetic gastroparesis 5. CKD mineral bone disorder Plan: Hemodialysis yesterday with goal UF 4 L and repeat today. We will continue to work with her as outpatient to maintain her goal dry weight. Clear for discharge after HD today.
[2024-05-01] MEDS ORDERED: DARBEPOETIN ALFA 40 MCG/0.4 ML SYRINGE SQ SCH (09:00)
--- NOTE | 2024-05-01 23:28 | P.DS ---
Providers Date of admission: 04/27/24 10:49 Attending physician: Dahiana hCan Consults: 04/27/24 08:08 Consult Physician Urgent Consulting Provider: Rachid Aquino Consult Reason/Comments: Elevated troponin and BNP Do you want consulting provider notified?: Yes Consult Physician Urgent Consulting Provider: Charlene Lim Consult Reason/Comments: ESRD on dialysis, fluid overload Do you want consulting provider notified?: Yes Primary care physician: Charlene Lim Hospital Course: Final Diagnosis -Acute hypoxic respiratory failure requiring BiPAP secondary to pulmonary edema from end-stage renal disease patient is undergoing hemodialysis at this time with removal of 4 L of fluid so far currently undergoing hemodialysis today. -Hypertensive urgency uncontrolled elevated blood pressures patient was resumed on home regimen her blood pressure is still elevated but will continue with the home regimen and monitor expected to improve with hemodialysis. -Diabetes mellitus with diabetic nephropathy end-stage renal disease patient will be resumed on home regimen along with sliding scale -Uncontrolled diabetes increasing levemir and add scheduled insulin -Seizure disorder -Hypothyroidism -End-stage renal disease -Depression Discharge Disposition Patient is stable for discharge home after hemodialysis. Patient has been maintained on hemodialysis 4 times per week and will continue on discharge. As m entioned blood pressure medications have been adj.usted by cardiology. Patient to establish care with Dr. Vallecillo on discharge. Continue on fluid restriction and low sodium diet. Hospital Course 34-year-old female with medical history of endstage renal disease, hypothyroidism, diabetes mellitus, hypertension, depression. Patient returns to the hospital with volume overload and respiratory distress. Patient require BiPAP in the ER. Patient has end stage renal disease on hemodialysis four times a week did not miss any hemodialysis. Patient has extensive pulmonary edema on the chest x-ray. Patient is undergoing hemodialysis with removal of 4.5 L. Patient is found to have highly elevated blood pressure with systolics going into 220. Patient blood pressure is slightly better now. Patient was hypoxic with saturations in 70%. Patient has multiple hospitalizations for the same problem apparently patient is noncompliant with diet and fluid restriction recommendations. Patient was admitted with nephrology consultation. Blood pressure medications have been adjusted by cardiology recommending entresto, carvedilol. Clonidine has been decreased. Patient has been taken off labetolol and minoxidil Blood pressure has significant improved and blood pressure now 150/80s. Even down to 124/73. Patient has no chest pain. Shortness of breath significantly improved. Patient is on oxygen outpatient and continues on 2L of oxygen. Patient will be discharged home today after hemodialysis. Please see medication reconciliation for a list of current medications. Thank you for allowing us to participate in the care of this patient. The impression and plan of care has been dictated by Yeni Blackburn, Nurse Practitioner as directed. Dr. Connie MD I have performed a history and physical examination and medical decision making of this patient, discussed the same with the dictator, and agree with the dictators assessment and plan as written, documented as a scribe. Based on total visit time, I have performed more than 50% of this visit. Patient Condition at Discharge: Stable Plan - Discharge Summary Discharge Rx Participant: Yes New Discharge Prescriptions: New cloNIDine HCL [Catapres] 0.1 mg PO BID #90 tab carvediloL [Coreg] 25 mg PO BID-W/MEALS #60 tablet Sacubitril/Valsartan [Entresto 49 mg-51 mg Tablet] 1 each PO BID #60 tab Continue Sertraline [Zoloft] 200 mg PO DAILY@0800 [place] Caps 1 cap PO HS@2100 Atorvastatin [Lipitor] 40 mg PO HS@2100 methocarbamoL [Robaxin-750] 750 mg PO QID@02,06,12,17 Ondansetron [Zofran] 4 mg PO Q8HR PRN PRN Reason: Nausea And Vomiting bisacodyL [Dulcolax] 10 mg RECTAL DAILY PRN PRN Reason: Constipation Magnesium Hydroxide [Milk of Magnesia Concentrate] 7,200 mg PO DAILY PRN PRN Reason: Constipation NIFEdipine XL [Procardia XL] 60 mg PO BID@0800,1700 Lidocaine 4% Patch 1 patch TOPICAL DAILY@0800 Ipratropium-Albuterol Nebulize [Duoneb 0.5 mg-3 mg/3 ml Soln] 3 ml INHALATION RT-TID PRN each PRN Reason: Shortness Of Breath Or Wheezing Metoclopramide [Reglan] 5 mg PO AC-TID tab Biotene Dry Mouth/Throat 10 ml PO BID PRN PRN Reason: DRY MOUTH/THROAT Acetaminophen [Tylenol] 650 mg PO Q4H PRN PRN Reason: Pain Or Fever > 100.5 traZODone HCL [Desyrel] 50 mg PO HS tab Darbepoetin Artur [Aranesp] 40 mcg SQ MO Sevelamer [Renvela] 800 mg PO HS Loratadine [Claritin] 5 mg PO DAILY tab INSULIN ASPART (NovoLOG) [NovoLOG (formulary)] See Protocol SQ ACHS Levothyroxine Sodium [Synthroid] 175 mcg PO DAILY@0600 Divalproex ER [Depakote ER] 500 mg PO BID@0800,1700 Pantoprazole [Protonix] 40 mg PO DAILY@0600 Sevelamer [Renvela] 1,600 mg PO AC-TID@07,,1630 Docusate [Colace] 100 mg PO DAILY@0800 Aspirin 81 mg PO DAILY@0800 Isosorbide Mononitrate ER [Imdur] 30 mg PO DAILY tab polyethylene glycoL 3350 [Miralax] 17 gm PO AC-LUNCH #527 gm hydrALAZINE HCL [Apresoline] 150 mg PO TID tab Melatonin 1 mg PO HS tab Butalb/APAP/Caff 50-325-40Mg [Fioricet 50-325-40] 1 tab PO Q4HR PRN PRN Reason: Headache Insulin Glargine [Lantus Vial] 25 unit SQ HS ALPRAZolam [Xanax] 0.5 mg PO BID PRN #4 tab PRN Reason: Anxiety Acetaminophen-Codeine 300-30mg [Tylenol w/codeine #3] 1 tab PO Q6HR PRN 3 Days #12 tab PRN Reason: Pain Discontinued minoxidiL [Loniten] 2.5 mg PO DAILY tab cloNIDine HCL [Catapres] 0.3 mg PO TID Ciprofloxacin-Dexameth [Ciprodex Otic Susp] 4 drops RIGHT EAR BID ml Labetalol [Trandate] 400 mg PO BID@0800,1700 7 Days #14 tab Discharge Medication List Levothyroxine Sodium [Synthroid] 175 mcg PO DAILY@0600 10/22/23 [History] Sertraline [Zoloft] 200 mg PO DAILY@0800 10/22/23 [History] Atorvastatin [Lipitor] 40 mg PO HS@2100 12/27/23 [History] Divalproex ER [Depakote ER] 500 mg PO BID@0800,1700 12/27/23 [History] Ondansetron [Zofran] 4 mg PO Q8HR PRN 12/27/23 [History] Pantoprazole [Protonix] 40 mg PO DAILY@0600 12/27/23 [History] [place] Caps 1 cap PO HS@2100 12/27/23 [History] methocarbamoL [Robaxin-750] 750 mg PO QID@02,06,12,17 12/27/23 [History] Aspirin 81 mg PO DAILY@0800 02/05/24 [History] Docusate [Colace] 100 mg PO DAILY@0800 02/05/24 [History] Lidocaine 4% Patch 1 patch TOPICAL DAILY@0800 02/05/24 [History] Magnesium Hydroxide [Milk of Magnesia Concentrate] 7,200 mg PO DAILY PRN 02/05/24 [History] NIFEdipine XL [Procardia XL] 60 mg PO BID@0800,1700 02/05/24 [History] Sevelamer [Renvela] 1,600 mg PO AC-TID@07,11,1630 02/05/24 [History] bisacodyL [Dulcolax] 10 mg RECTAL DAILY PRN 02/05/24 [History] Ipratropium-Albuterol Nebulize [Duoneb 0.5 mg-3 mg/3 ml Soln] 3 ml INHALATION RT-TID PRN each 02/14/24 [Rx] Isosorbide Mononitrate ER [Imdur] 30 mg PO DAILY tab 02/14/24 [Rx] Metoclopramide [Reglan] 5 mg PO AC-TID tab 02/14/24 [Rx] polyethylene glycoL 3350 [Miralax] 17 gm PO AC-LUNCH #527 gm 02/14/24 [Rx] Acetaminophen [Tylenol] 650 mg PO Q4H PRN 02/18/24 [History] Biotene Dry Mouth/Throat 10 ml PO BID PRN 02/18/24 [History] Melatonin 1 mg PO HS tab 02/25/24 [Rx] hydrALAZINE HCL [Apresoline] 150 mg PO TID tab 02/25/24 [Rx] traZODone HCL [Desyrel] 50 mg PO HS tab 02/25/24 [Rx] Butalb/APAP/Caff 50-325-40Mg [Fioricet 50-325-40] 1 tab PO Q4HR PRN 03/14/24 [History] Darbepoetin Artur [Aranesp] 40 mcg SQ MO 03/14/24 [History] Insulin Glargine [Lantus Vial] 25 unit SQ HS 03/14/24 [History] Sevelamer [Renvela] 800 mg PO HS 03/14/24 [History] ALPRAZolam [Xanax] 0.5 mg PO BID PRN #4 tab 03/30/24 [Rx] Loratadine [Claritin] 5 mg PO DAILY tab 03/30/24 [Rx] INSULIN ASPART (NovoLOG) [NovoLOG (formulary)] See Protocol SQ ACHS 04/16/24 [History] Acetaminophen-Codeine 300-30mg [Tylenol w/codeine #3] 1 tab PO Q6HR PRN 3 Days #12 tab 04/17/24 [Rx] Sacubitril/Valsartan [Entresto 49 mg-51 mg Tablet] 1 each PO BID #60 tab 04/29/24 [Rx] carvediloL [Coreg] 25 mg PO BID-W/MEALS #60 tablet 04/29/24 [Rx] cloNIDine HCL [Catapres] 0.1 mg PO BID #90 tab 04/29/24 [Rx] Follow up Appointment(s)/Referral(s): Mahendra Hanson MD [Medical Doctor] - 1 Week (Cardiology ) Charlene Lim MD [Primary Care Provider] - 1-2 days Justino Vallecillo MD [STAFF PHYSICIAN] - 1 Week Ambulatory/Diagnostic Orders: Basic Metabolic Panel [LAB.AMB] Time Frame: 4 Days, Location: None Selected Patient Instructions/Handouts: Pulmonary Edema (DC), Cystic Fibrosis (DC), Hypertensive Crisis (DC) Activity/Diet/Wound Care/Special Instructions: Can D/C home after hemodialysis Discharge Disposition: HOME SELF-CARE
== END 2024-04-29 18:39 | disposition home or self-care (01) | DRG 194 ==
LOC: EC 06:12 → 1SOBS 10:49 → 3SCARD 17:07
PROVIDERS: ADMIT Hospitalist; ATTEND Hospitalist
PROC: 5A09457 Assistance with Respiratory Ventilation, 24-96 Consecutive Hours, Continuous Positive Airway Pressure (ICD-10-PCS; principal; 2024-04-27)
PROC: 5A1D70Z Performance of Urinary Filtration, Intermittent, Less than 6 Hours Per Day (ICD-10-PCS; 2024-04-27)
DX: I13.2 Hypertensive heart and chronic kidney disease with heart failure and with stage 5 chronic kidney disease, or end stage renal disease (principal); I50.33 Acute on chronic diastolic (congestive) heart failure; J96.01 Acute respiratory failure with hypoxia; K31.84 Gastroparesis; E83.9 Disorder of mineral metabolism, unspecified; R68.2 Dry mouth, unspecified; N18.6 End stage renal disease; E03.9 Hypothyroidism, unspecified; E10.22 Type 1 diabetes mellitus with diabetic chronic kidney disease; E10.319 Type 1 diabetes mellitus with unspecified diabetic retinopathy without macular edema; G62.9 Polyneuropathy, unspecified; E10.43 Type 1 diabetes mellitus with diabetic autonomic (poly)neuropathy; K21.9 Gastro-esophageal reflux disease without esophagitis; F32.A Depression, unspecified; F15.21 Other stimulant dependence, in remission; F12.11 Cannabis abuse, in remission; F41.9 Anxiety disorder, unspecified; G40.909 Epilepsy, unspecified, not intractable, without status epilepticus; I16.0 Hypertensive urgency; Z79.4 Long term (current) use of insulin; Z79.82 Long term (current) use of aspirin; Z79.890 Hormone replacement therapy; Z79.899 Other long term (current) drug therapy; Z76.82 Awaiting organ transplant status; Z99.81 Dependence on supplemental oxygen; Z88.6 Allergy status to analgesic agent; Z88.5 Allergy status to narcotic agent; Z28.310 Unvaccinated for COVID-19; Z28.21 Immunization not carried out because of patient refusal; Z11.52 Encounter for screening for COVID-19; Z87.891 Personal history of nicotine dependence
CPT/HCPCS: 36415; 71045; 80048; 80053; 81001; 83605; 83735; 83880; 84100; 84484; 85025; 85610; 85730; 87636; 90935; 93005; 94640; 94660; 96374; 99285

== ENCOUNTER 2024-05-14 10:19 | Inpatient (IN) | payer OTHER ==
[2024-05-14 10:32] LABS: Glucose,Whole Blood >600 mg/dL (70-110)
[2024-05-14] MEDS: SODIUM CHLORIDE 0.9% 500 ML 500 ML IV ONE (11:09)
[2024-05-14 11:11] LABS: Anisocytosis Slight; Basophils # (A) 0.1 k/uL (0-0.2); Basophils % (A) 1 %; Eosinophils # (A) 0.6 k/uL (0-0.7); Eosinophils % (A) 5 %; HCT 24.6 % (34.0-46.0); Hypochromasia Slight; Lymphocytes # (A) 0.8 k/uL (1.0-4.8); Lymphocytes % (A) 6 %; MCH 33.9 pg (25.0-35.0); MCHC 32.6 g/dL (31.0-37.0); MCV 104.1 fL (80.0-100.0); Macrocytosis Moderate; Monocytes # (A) 0.3 k/uL (0-1.0); Monocytes % (A) 2 %; Neutrophils % (A) 86 %; Platelet Count 272 k/uL (150-450); RBC 2.36 m/uL (3.80-5.40); RDW 18.4 % (11.5-15.5); WBC 12.7 k/uL (3.8-10.6)
[2024-05-14 11:20] LABS: INR 1.1 (<1.2); Partial Thromboplastin Time 24.9 sec (22.0-30.0); Prothrombin Time 11.6 sec (10.0-12.5)
[2024-05-14 11:34] LABS: ALT 46 U/L (4-34); AST 46 U/L (14-36); African American GFR (CKD) 12 (>60 ml/min/1.73 sqM); Albumin 4.2 g/dL (3.5-5.0); Alcohol <10 mg/dL; Alkaline Phosphatase 199 U/L (38-126); Anion Gap 12 mmol/L; Blood Urea Nitrogen 39 mg/dL (7-17); Calcium 9.3 mg/dL (8.4-10.2); Carbon Dioxide 28 mmol/L (22-30); Chloride 92 mmol/L (98-107); Non-African American GFR(CKD) 11 (>60 ml/min/1.73 sqM); Potassium 5.7 mmol/L (3.5-5.1); Sodium 132 mmol/L (137-145); Total Bilirubin 1.1 mg/dL (0.2-1.3); Total Protein 6.4 g/dL (6.3-8.2)
[2024-05-14 11:45] LABS: Glucose,Whole Blood >600 mg/dL (70-110)
[2024-05-14] MEDS: INSULIN REGULAR 100 UNIT in SODIUM CHLORIDE 0.9% 100 ML IV SCH ×2 (11:46→17:25)
[2024-05-14 12:29] LABS: VBG PH 7.44 (7.31-7.41)
[2024-05-14 12:47] LABS: Glucose,Whole Blood >600 mg/dL (70-110)
[2024-05-14 12:52] LABS: Glucose 680 mg/dL (74-99)
[2024-05-14 12:56] LABS: Valproic Acid (Depakene) 24.7 ug/mL
[2024-05-14] MEDS: SODIUM CHLORIDE 0.9% 1,000 ML IV SCH (13:01)
[2024-05-14 13:29] LABS: African American GFR (CKD) 12 (>60 ml/min/1.73 sqM); Anion Gap 12 mmol/L; Blood Urea Nitrogen 41 mg/dL (7-17); Carbon Dioxide 26 mmol/L (22-30); Chloride 92 mmol/L (98-107); Non-African American GFR(CKD) 11 (>60 ml/min/1.73 sqM); Potassium 5.4 mmol/L (3.5-5.1); Sodium 130 mmol/L (137-145)
[2024-05-14 13:41] LABS: Glucose 665 mg/dL (74-99)
[2024-05-14 13:52] LABS: Glucose,Whole Blood 542 mg/dL (70-110)
[2024-05-14 13:58] LABS: Appearance,Urine Clear (Clear); Bacteria,Urine Rare /hpf; Bilirubin,Urine Negative (Negative); Blood,Urine Trace (Negative); Color,Urine Colorless; Glucose,Urine (UA) 4+ (Negative); Hyaline Casts,Urine 7 /lpf (0-2); Ketones,Urine Trace (Negative); Leukocyte Esterase,Urine Negative (Negative); Mucus,Urine Rare /hpf; Nitrite,Urine Negative (Negative); PH, Urine 8.5 (5.0-8.0); Protein,Urine 3+ (Negative); RBC,Urine 8 /hpf (0-5); Specific Gravity,Urine 1.017 (1.001-1.035); Squamous Epithelial Cell,Urine 1 /hpf (0-4); Urobilinogen,Urine <2.0 mg/dL (<2.0); WBC,Urine 2 /hpf (0-5)
[2024-05-14 14:04] LABS: Amphetamine Screen,Urine Not Detected (NotDetected); Barbiturate Screen,Urine Detected (NotDetected); Benzodiazepines Screen,Urine Not Detected (NotDetected); Cocaine Screen,Urine Not Detected (NotDetected); Methadone Screen, Urine Not Detected (NotDetected); Opiate Screen,Urine Detected (NotDetected); Oxycodone Screen, Urine Not Detected (NotDetected); Phencyclidine Screen,Urine Not Detected (NotDetected); Tricyclic Antidepressant,Urine Not Detected (NotDetected); Urn Cannabinoid Scrn Detected (NotDetected)
--- NOTE | 2024-05-14 14:07 | ED ---
Altered Mental Status HPI - General Chief Complaint: Altered Mental Status Stated Complaint: AMS,Hyperglycemia Time Seen by Provider: 05/14/24 10:30 Source: patient, EMS Mode of arrival: EMS Limitations: altered mental status - History of Present Illness Initial Comments: 34-year-old female with past medical history of diabetes, end-stage renal disease on hemodialysis 4 days/week who presents to the emergency department with altered mental status. Is reported by EMS that the patient was altered. They obtained an Accu-Chek and her glucose was higher than 600. Patient cannot provide much history due to her altered state. She is well-known to the hospital for uncontrolled diabetes and pulmonary edema. Patient does have oxygen saturations of 72% on 3 L. I am unsure if the patient missed any dialysis or took her medications. HPI is limited because of the patient's current altered state - Related Data Home Medications Medication Instructions Recorded Confirmed Levothyroxine Sodium [Synthroid] 175 mcg PO DAILY@0600 10/22/23 05/14/24 Sertraline [Zoloft] 200 mg PO DAILY@0810/22/23 05/14/24 Atorvastatin [Lipitor] 40 mg PO HS@209912/27/23 05/14/24 Divalproex ER [Depakote ER] 500 mg PO BID@0800,1700 12/27/23 05/14/24 Ondansetron [Zofran] 4 mg PO Q8HR PRN 12/27/23 05/14/24 Pantoprazole [Protonix] 40 mg PO DAILY@59912/27/23 05/14/24 Crosby Caps 1 cap PO HS@209912/27/23 05/14/24 methocarbamoL [Robaxin-750] 750 mg PO QID@02,06,12,17 12/27/23 05/14/24 Docusate [Colace] 100 mg PO DAILY@0800 02/05/24 05/14/24 Lidocaine 4% Patch 1 patch TOPICAL DAILY@79902/05/24 05/14/24 Magnesium Hydroxide [Milk of 7,200 mg PO DAILY PRN 02/05/24 05/14/24 Magnesia Concentrate] Sevelamer [Renvela] 1,600 mg PO AC-TID@07,11,1630 02/05/24 05/14/24 bisacodyL [Dulcolax] 10 mg RECTAL DAILY PRN 02/05/24 05/14/24 Acetaminophen [Tylenol] 650 mg PO Q4H PRN 02/18/24 05/14/24 Biotene Dry Mouth/Throat 10 ml PO BID PRN 02/18/24 05/14/24 Butalb/APAP/Caff 50-325-40Mg 1 tab PO Q4HR PRN 03/14/24 05/14/24 [Fioricet 50-325-40] Darbepoetin Artur [Aranesp] 40 mcg SQ MO 03/14/24 05/14/24 Sevelamer [Renvela] 800 mg PO HS 03/14/24 05/14/24 INSULIN ASPART (NovoLOG) [NovoLOG See Protocol SQ ACHS 04/16/24 05/14/24 (formulary)] Previous Rx's Medication Instructions Recorded Ipratropium-Albuterol Nebulize 3 ml INHALATION RT-TID PRN each 02/14/24 [Duoneb 0.5 mg-3 mg/3 ml Soln] Metoclopramide [Reglan] 5 mg PO AC-TID tab 02/14/24 polyethylene glycoL 3350 [Miralax] 17 gm PO AC-LUNCH #527 gm 02/14/24 Melatonin 1 mg PO HS tab 02/25/24 traZODone HCL [Desyrel] 50 mg PO HS tab 02/25/24 ALPRAZolam [Xanax] 0.5 mg PO BID PRN #4 tab 03/30/24 Loratadine [Claritin] 5 mg PO DAILY tab 03/30/24 Acetaminophen-Codeine 300-30mg 1 tab PO Q6HR PRN 3 Days #12 tab 04/17/24 [Tylenol w/codeine #3] carvediloL [Coreg] 25 mg PO BID-W/MEALS #60 tablet 04/29/24 Aspirin 81 mg PO DAILY@0800 #30 tab 05/18/24 Insulin Glargine [Lantus Vial] 17 unit SQ HS #1 each 05/18/24 Isosorbide Mononitrate ER [Imdur] 30 mg PO DAILY #30 tab 05/18/24 NIFEdipine XL [Procardia XL] 60 mg PO BID@0800,1700 #60 tab 05/18/24 Sacubitril/Valsartan [Entresto 49 1 tab PO BID #60 tab 05/18/24 mg-51 mg Tablet] cloNIDine HCL [Catapres] 0.1 mg PO BID 60 Days #90 tab 05/18/24 hydrALAZINE HCL [Apresoline] 150 mg PO TID #300 tab 05/18/24 Allergies Allergy/AdvReac Type Severity Reaction Status Date / Time hydromorphone HCl Allergy Anaphylaxis Verified 05/14/24 15:31 [From Dilaudid] propoxyphene Allergy Rash/Hives Verified 05/14/24 15:31 [From Darvocet-N] tramadol Allergy Anaphylaxis Verified 05/14/24 15:31 ibuprofen [From Motrin] AdvReac unable to Verified 05/14/24 15:31 take due to kidney disease venom-honey bee AdvReac passes out Verified 05/14/24 15:31 [bee venom (honey bee)] Review of Systems ROS Statement: Those systems with pertinent positive or pertinent negative responses have been documented in the HPI. ROS Other: All systems not noted in ROS Statement are negative. Past Medical History Past Medical History: Diabetes Mellitus, GERD/Reflux, Hypertension, Renal Disease, Seizure Disorder, Thyroid Disorder Additional Past Medical History / Comment(s): Neuropathy, last seizure 2020, gastroparesis, headaches with dialysis, states "fast heart rate" since giving ., receives Hemodialysis Wednesday- and Saturdays at [facility] [place] right chest hemodialysis catheter., severe HTN. patient awaiting Kidney and Pancrease Transplant. , states sometimes she has had stroke -like symptoms but no stroke., hx of c-diff 2013. History of Any Multi-Drug Resistant Organisms: None Reported Date of last positivie culture/infection: None MDRO Source:: None Past Surgical History: Adenoidectomy, Section, Cholecystectomy, Orthopedic Surgery, Tonsillectomy Additional Past Surgical History / Comment(s): 2 KNEE SCOPES, EAR TUBES, additional left knee surgery related to fracture, new port a cath jul 29, eye surgeries for diabetic retinopathy. Past Anesthesia/Blood Transfusion Reactions: Previous Problems w/ Anesthesia Additional Past Anesthesia/Blood Transfusion Reaction / Comment(s): confusion Past Psychological History: Anxiety, Depression Smoking Status: Former smoker Past Alcohol Use History: None Reported Past Drug Use History: Marijuana, Methamphetamine - Past Family History Father History Unknown: Yes Family Medical History: Unable to Obtain Mother History Unknown: Yes Family Medical History: No Reported History Grandfather History Unknown: Yes Family Medical History: Coronary Artery Disease (CAD) Additional Family Medical History / Comment(s): Diabetes mellitus type 2 General Exam Limitations: altered mental status General appearance: alert, lethargic Head exam: Present: atraumatic, normocephalic, normal inspection ENT exam: Present: mucous membranes dry Respiratory exam: Present: rales, decreased breath sounds Cardiovascular Exam: Present: regular rate, normal rhythm GI/Abdominal exam: Present: soft, normal bowel sounds. Absent: distended, tenderness, guarding, rebound, rigid Neurological exam: Present: altered Psychiatric exam: Present: flat affect Course Vital Signs 05/14/24 05/14/24 05/14/24 10:26 11:15 11:45 Temperature 97.7 F Pulse Rate 92 Respiratory 16 Rate Blood Pressure 191/131 215/138 O2 Sat by Pulse 92 L 72 L 97 Oximetry Fraction of Inspired Oxygen (FIO2) 05/14/24 05/14/24 05/14/24 11:56 11:57 14:15 Temperature Pulse Rate 79 Respiratory 16 Rate Blood Pressure 229/126 O2 Sat by Pulse 99 Oximetry Fraction of 40 40 Inspired Oxygen (FIO2) 05/14/24 05/14/24 05/14/24 14:35 16:32 16:45 Temperature 97.8 F Pulse Rate 78 79 Respiratory 20 14 Rate Blood Pressure 180/105 200/126 O2 Sat by Pulse 99 100 Oximetry Fraction of 40 40 Inspired Oxygen (FIO2) Medical Decision Making - Medical Decision Making Was pt. sent in by a medical professional or institution (, PA, CIRCUIT BREAKER ASSEMBLER, urgent care, hospital, or longterm...) When possible be specific @ -No Did you speak to anyone other than the patient for history (EMS, parent, family, police, friend...)? What history was obtained from this source @ -Spoke with EMS for history Did you review nursing and triage notes (agree or disagree)? Why? @ -I reviewed and agree with nursing and triage notes Were old charts reviewed (outside hosp., previous admission, EMS record, old EKG, old radiological studies, urgent care reports/EKG's, longterm records)? Report findings @ -No old charts were reviewed Differential Diagnosis (chest pain, altered mental status, abdominal pain women, abdominal pain men, vaginal bleeding, weakness, fever, dyspnea, syncope, headache, dizziness, GI bleed, back pain, seizure, CVA, palpatations, mental health, musculoskeletal)? @ -Differential Altered Mental Status: Hypoglycemia, DKA, hypercapnia, ETOH, overdose, CO poisoning, trauma, myxedema coma, HTN encephalopathy, infection, encephalitis, psychosis, intercranial hemorrhage, hepatic encephalopathy, meningitis, CVA, this is not meant to be an all-inclusive list EKG interpreted by me (3pts min.). @ -Yes and demonstrates sinus rhythm with a rate of 68. IL interval 119. QRS 84. QTc of 444. No acute ST segment elevations or depressions X-rays interpreted by me (1pt min.). @ -Yes and demonstrates pulmonary vascular congestion CT interpreted by me (1pt min.). @ -Yes and demonstrates no acute intracranial process U/S interpreted by me (1pt. min.). @ -None done What testing was considered but not performed or refused? (CT, X-rays, U/S, labs)? Why? @ -None What meds were considered but not given or refused? Why? @ -None Did you discuss the management of the patient with other professionals (lupe morales i.eKaterin Arroyo, PA, CIRCUIT BREAKER ASSEMBLER, lab, RT, psych nurse, hospice social worker, hvac estimator, teacher, correction officer supervisor, case consultant)? Give summary @ -I spoke with Dr. Andrade. He does recommend ordering all of the patient's home medications. He will dialyze the patient soon as possible. I also spoke with Dr. Thornton who accepted the patient into the ICU Was smoking cessation discussed for >3mins.? @ -No Was critical care preformed (if so, how long)? @ -Yes, 40 minutes for BiPAP management Were there social determinants of health that impacted care today? How? (Homelessness, low income, unemployed, alcoholism, drug addiction, transportation, low edu. Level, literacy, decrease access to med. care, penitentiary, rehab)? @ -No Was there de-escalation of care discussed even if they declined (Discuss DNR or withdrawal of care, Hospice)? DNR status @ -No What co-morbidities impacted this encounter? (DM, HTN, Smoking, COPD, CAD, Cancer, CVA, ARF, Chemo, Hep., AIDS, mental health diagnosis, sleep apnea, morbid obesity)? @ -End-stage renal disease on hemodialysis, congestive heart failure, diabetes Was patient admitted / discharged? Hospital course, mention meds given and route, prescriptions, significant lab abnormalities, going to OR and other pertinent info. @ -Upon arrival patient seen and evaluated in room 25. Thorough history and physical exam was performed. Patient is tachypneic. She is placed on BiPAP. IV was established and laboratory studies are conducted. Glucose was greater than 600. As the patient is already in volume overload I did hold on fluids. Patient is initiated on an insulin drip. Razo catheter was placed and the patient was given some Lasix. I called Dr. Andrade and informed him that the patient needs to be dialyzed. Patient is extremely sick and therefore I did call Dr. Philippe who accepted the patient into the ICU. Patient awaiting a bed in stable condition with an extremely guarded prognosis Undiagnosed new problem with uncertain prognosis? @ -No Drug Therapy requiring intensive monitoring for toxicity (Heparin, Nitro, Insulin, Cardizem)? @ -Insulin drip Were any procedures done? @ -No Diagnosis/symptom? @ -Acute respiratory insufficiency, acute BiPAP dependent respiratory failure, acute hyperglycemia, end-stage renal disease on hemodialysis Acute, or Chronic, or Acute on Chronic? @ -No acute Uncomplicated (without systemic symptoms) or Complicated (systemic symptoms)? @ -Complicated Side effects of treatment? @ -No Exacerbation, Progression, or Severe Exacerbation? @ -Yes Poses a threat to life or bodily function? How? (Chest pain, [place], [place], pneumonia, PE, COPD, DKA, ARF, appy, cholecystitis, CVA, Diverticulitis, Homicidal, Suicidal, threat to staff... and all critical care pts) @ -Yes as patient is acutely ill requiring BiPAP and insulin drip - Lab Data Result diagrams: 05/16/24 05:42 05/17/24 07:30 Lab Results 05/14/24 05/14/24 05/14/24 Range/Units 10:30 10:40 10:40 WBC 12.7 H (3.8-10.6) k/uL RBC 2.36 L (3.80-5.40) m/uL Hgb 8.0 L (11.4-16.0) gm/dL Hct 24.6 L (34.0-46.0) % MCV 104.1 H (80.0-100.0) fL MCH 33.9 (25.0-35.0) pg MCHC 32.6 (31.0-37.0) g/dL RDW 18.4 H (11.5-15.5) % Plt Count 272 (150-450) k/uL MPV 9.0 Neutrophils % 86 % Lymphocytes % 6 % Monocytes % 2 % Eosinophils % 5 % Basophils % 1 % Neutrophils # 11.0 H (1.3-7.7) k/uL Lymphocytes # 0.8 L (1.0-4.8) k/uL Monocytes # 0.3 (0-1.0) k/uL Eosinophils # 0.6 (0-0.7) k/uL Basophils # 0.1 (0-0.2) k/uL Hypochromasia Slight Anisocytosis Slight Macrocytosis Moderate PT 11.6 (10.0-12.5) sec INR 1.1 (<1.2) APTT 24.9 (22.0-30.0) sec Sample Site ABG pH (7.35-7.45) ABG pCO2 (35-45) mmHg ABG pO2 (83-108) mmHg ABG HCO3 (21-25) mmol/L ABG Total CO2 (19-24) mmol/L ABG O2 Saturation (94-97) % ABG Base Excess mmol/L Momo Test VBG pH (7.31-7.41) VBG pCO2 (37-51) mmHg VBG HCO3 (24-28) mmol/L FiO2 % Sodium (137-145) mmol/L Potassium (3.5-5.1) mmol/L Chloride (98-107) mmol/L Carbon Dioxide (22-30) mmol/L Anion Gap mmol/L BUN (7-17) mg/dL Creatinine (0.52-1.04) mg/dL Est GFR (CKD-EPI)AfAm (>60 ml/min/1.73 sqM) Est GFR (CKD-EPI)NonAf (>60 ml/min/1.73 sqM) Glucose (74-99) mg/dL POC Glucose (mg/dL) >600 H* (70-110) mg/dL POC Glu Payable Manager ID Stephan Mora Estimated Ave Glu mg/dL mg/dL Hemoglobin A1c (<=6.0) % Plasma Lactic Acid Christopher (0.7-2.0) mmol/L Calcium (8.4-10.2) mg/dL Phosphorus (2.5-4.5) mg/dL Total Bilirubin (0.2-1.3) mg/dL AST (14-36) U/L ALT (4-34) U/L Alkaline Phosphatase (38-126) U/L Troponin I (0.000-0.034) ng/mL NT-Pro-B Natriuret Pep pg/mL Total Protein (6.3-8.2) g/dL Albumin (3.5-5.0) g/dL TSH (0.465-4.680) mIU/L Urine Color Urine Appearance (Clear) Urine pH (5.0-8.0) Ur Specific Wilmot (1.001-1.035) Urine Protein (Negative) Urine Glucose (UA) (Negative) Urine Ketones (Negative) Urine Blood (Negative) Urine Nitrite (Negative) Urine Bilirubin (Negative) Urine Urobilinogen (<2.0) mg/dL Ur Leukocyte Esterase (Negative) Urine RBC (0-5) /hpf Urine WBC (0-5) /hpf Ur Squamous Epith Cells (0-4) /hpf Urine Bacteria (None) /hpf Hyaline Casts (0-2) /lpf Urine Mucus (None) /hpf Urine HCG, Qual (Not Detectd) Urine Opiates Screen (NotDetected) Ur Oxycodone Screen (NotDetected) Urine Methadone Screen (NotDetected) Ur Barbiturates Screen (NotDetected) Valproic Acid ug/mL U Tricyclic Antidepress (NotDetected) Ur Phencyclidine Scrn (NotDetected) Ur Amphetamines Screen (NotDetected) U Methamphetamines Scrn (NotDetected) U Benzodiazepines Scrn (NotDetected) Urine Cocaine Screen (NotDetected) U Marijuana (THC) Screen (NotDetected) Serum Alcohol mg/dL Acetone, Qual (Negative) 05/14/24 05/14/24 05/14/24 Range/Units 10:40 10:40 10:40 WBC (3.8-10.6) k/uL RBC (3.80-5.40) m/uL Hgb (11.4-16.0) gm/dL Hct (34.0-46.0) % MCV (80.0-100.0) fL MCH (25.0-35.0) pg MCHC (31.0-37.0) g/dL RDW (11.5-15.5) % Plt Count (150-450) k/uL MPV Neutrophils % % Lymphocytes % % Monocytes % % Eosinophils % % Basophils % % Neutrophils # (1.3-7.7) k/uL Lymphocytes # (1.0-4.8) k/uL Monocytes # (0-1.0) k/uL Eosinophils # (0-0.7) k/uL Basophils # (0-0.2) k/uL Hypochromasia Anisocytosis Macrocytosis PT (10.0-12.5) sec INR (<1.2) APTT (22.0-30.0) sec Sample Site ABG pH (7.35-7.45) ABG pCO2 (35-45) mmHg ABG pO2 (83-108) mmHg ABG HCO3 (21-25) mmol/L ABG Total CO2 (19-24) mmol/L ABG O2 Saturation (94-97) % ABG Base Excess mmol/L Momo Test VBG pH (7.31-7.41) VBG pCO2 (37-51) mmHg VBG HCO3 (24-28) mmol/L FiO2 % Sodium 132 L (137-145) mmol/L Potassium 5.7 H (3.5-5.1) mmol/L Chloride 92 L (98-107) mmol/L Carbon Dioxide 28 (22-30) mmol/L Anion Gap 12 mmol/L BUN 39 H (7-17) mg/dL Creatinine 4.97 H (0.52-1.04) mg/dL Est GFR (CKD-EPI)AfAm 12 (>60 ml/min/1.73 sqM) Est GFR (CKD-EPI)NonAf 11 (>60 ml/min/1.73 sqM) Glucose 680 H* (74-99) mg/dL POC Glucose (mg/dL) (70-110) mg/dL POC Glu Payable Manager ID Estimated Ave Glu mg/dL 177 mg/dL Hemoglobin A1c 7.8 H (<=6.0) % Plasma Lactic Acid Christopher (0.7-2.0) mmol/L Calcium 9.3 (8.4-10.2) mg/dL Phosphorus (2.5-4.5) mg/dL Total Bilirubin 1.1 (0.2-1.3) mg/dL AST 46 H (14-36) U/L ALT 46 H (4-34) U/L Alkaline Phosphatase 199 H (38-126) U/L Troponin I <0.012 (0.000-0.034) ng/mL NT-Pro-B Natriuret Pep pg/mL Total Protein 6.4 (6.3-8.2) g/dL Albumin 4.2 (3.5-5.0) g/dL TSH 1.320 (0.465-4.680) mIU/L Urine Color Urine Appearance (Clear) Urine pH (5.0-8.0) Ur Specific Wilmot (1.001-1.035) Urine Protein (Negative) Urine Glucose (UA) (Negative) Urine Ketones (Negative) Urine Blood (Negative) Urine Nitrite (Negative) Urine Bilirubin (Negative) Urine Urobilinogen (<2.0) mg/dL Ur Leukocyte Esterase (Negative) Urine RBC (0-5) /hpf Urine WBC (0-5) /hpf Ur Squamous Epith Cells (0-4) /hpf Urine Bacteria (None) /hpf Hyaline Casts (0-2) /lpf Urine Mucus (None) /hpf Urine HCG, Qual (Not Detectd) Urine Opiates Screen (NotDetected) Ur Oxycodone Screen (NotDetected) Urine Methadone Screen (NotDetected) Ur Barbiturates Screen (NotDetected) Valproic Acid 24.7 ug/mL U Tricyclic Antidepress (NotDetected) Ur Phencyclidine Scrn (NotDetected) Ur Amphetamines Screen (NotDetected) U Methamphetamines Scrn (NotDetected) U Benzodiazepines Scrn (NotDetected) Urine Cocaine Screen (NotDetected) U Marijuana (THC) Screen (NotDetected) Serum Alcohol <10 mg/dL Acetone, Qual (Negative) 05/14/24 05/14/24 05/14/24 Range/Units 11:43 12:16 12:33 WBC (3.8-10.6) k/uL RBC (3.80-5.40) m/uL Hgb (11.4-16.0) gm/dL Hct (34.0-46.0) % MCV (80.0-100.0) fL MCH (25.0-35.0) pg MCHC (31.0-37.0) g/dL RDW (11.5-15.5) % Plt Count (150-450) k/uL MPV Neutrophils % % Lymphocytes % % Monocytes % % Eosinophils % % Basophils % % Neutrophils # (1.3-7.7) k/uL Lymphocytes # (1.0-4.8) k/uL Monocytes # (0-1.0) k/uL Eosinophils # (0-0.7) k/uL Basophils # (0-0.2) k/uL Hypochromasia Anisocytosis Macrocytosis PT (10.0-12.5) sec INR (<1.2) APTT (22.0-30.0) sec Sample Site ABG pH (7.35-7.45) ABG pCO2 (35-45) mmHg ABG pO2 (83-108) mmHg ABG HCO3 (21-25) mmol/L ABG Total CO2 (19-24) mmol/L ABG O2 Saturation (94-97) % ABG Base Excess mmol/L Momo Test VBG pH 7.44 H (7.31-7.41) VBG pCO2 47 (37-51) mmHg VBG HCO3 32 H (24-28) mmol/L FiO2 % Sodium (137-145) mmol/L Potassium (3.5-5.1) mmol/L Chloride (98-107) mmol/L Carbon Dioxide (22-30) mmol/L Anion Gap mmol/L BUN (7-17) mg/dL Creatinine (0.52-1.04) mg/dL Est GFR (CKD-EPI)AfAm (>60 ml/min/1.73 sqM) Est GFR (CKD-EPI)NonAf (>60 ml/min/1.73 sqM) Glucose (74-99) mg/dL POC Glucose (mg/dL) >600 H* (70-110) mg/dL POC Glu Payable Manager ID Marti Gordon Estimated Ave Glu mg/dL mg/dL Hemoglobin A1c (<=6.0) % Plasma Lactic Acid Christopher (0.7-2.0) mmol/L Calcium (8.4-10.2) mg/dL Phosphorus 4.8 H (2.5-4.5) mg/dL Total Bilirubin (0.2-1.3) mg/dL AST (14-36) U/L ALT (4-34) U/L Alkaline Phosphatase (38-126) U/L Troponin I (0.000-0.034) ng/mL NT-Pro-B Natriuret Pep pg/mL Total Protein (6.3-8.2) g/dL Albumin (3.5-5.0) g/dL TSH (0.465-4.680) mIU/L Urine Color Urine Appearance (Clear) Urine pH (5.0-8.0) Ur Specific Wilmot (1.001-1.035) Urine Protein (Negative) Urine Glucose (UA) (Negative) Urine Ketones (Negative) Urine Blood (Negative) Urine Nitrite (Negative) Urine Bilirubin (Negative) Urine Urobilinogen (<2.0) mg/dL Ur Leukocyte Esterase (Negative) Urine RBC (0-5) /hpf Urine WBC (0-5) /hpf Ur Squamous Epith Cells (0-4) /hpf Urine Bacteria (None) /hpf Hyaline Casts (0-2) /lpf Urine Mucus (None) /hpf Urine HCG, Qual (Not Detectd) Urine Opiates Screen (NotDetected) Ur Oxycodone Screen (NotDetected) Urine Methadone Screen (NotDetected) Ur Barbiturates Screen (NotDetected) Valproic Acid ug/mL U Tricyclic Antidepress (NotDetected) Ur Phencyclidine Scrn (NotDetected) Ur Amphetamines Screen (NotDetected) U Methamphetamines Scrn (NotDetected) U Benzodiazepines Scrn (NotDetected) Urine Cocaine Screen (NotDetected) U Marijuana (THC) Screen (NotDetected) Serum Alcohol mg/dL Acetone, Qual (Negative) 05/14/24 05/14/24 05/14/24 Range/Units 12:33 12:36 12:36 WBC (3.8-10.6) k/uL RBC (3.80-5.40) m/uL Hgb (11.4-16.0) gm/dL Hct (34.0-46.0) % MCV (80.0-100.0) fL MCH (25.0-35.0) pg MCHC (31.0-37.0) g/dL RDW (11.5-15.5) % Plt Count (150-450) k/uL MPV Neutrophils % % Lymphocytes % % Monocytes % % Eosinophils % % Basophils % % Neutrophils # (1.3-7.7) k/uL Lymphocytes # (1.0-4.8) k/uL Monocytes # (0-1.0) k/uL Eosinophils # (0-0.7) k/uL Basophils # (0-0.2) k/uL Hypochromasia Anisocytosis Macrocytosis PT (10.0-12.5) sec INR (<1.2) APTT (22.0-30.0) sec Sample Site ABG pH (7.35-7.45) ABG pCO2 (35-45) mmHg ABG pO2 (83-108) mmHg ABG HCO3 (21-25) mmol/L ABG Total CO2 (19-24) mmol/L ABG O2 Saturation (94-97) % ABG Base Excess mmol/L Momo Test VBG pH (7.31-7.41) VBG pCO2 (37-51) mmHg VBG HCO3 (24-28) mmol/L FiO2 % Sodium 130 L (137-145) mmol/L Potassium 5.4 H (3.5-5.1) mmol/L Chloride 92 L (98-107) mmol/L Carbon Dioxide 26 (22-30) mmol/L Anion Gap 12 mmol/L BUN 41 H (7-17) mg/dL Creatinine 4.93 H (0.52-1.04) mg/dL Est GFR (CKD-EPI)AfAm 12 (>60 ml/min/1.73 sqM) Est GFR (CKD-EPI)NonAf 11 (>60 ml/min/1.73 sqM) Glucose 665 H* (74-99) mg/dL POC Glucose (mg/dL) (70-110) mg/dL POC Glu Payable Manager ID Estimated Ave Glu mg/dL mg/dL Hemoglobin A1c (<=6.0) % Plasma Lactic Acid Christopher 1.1 (0.7-2.0) mmol/L Calcium (8.4-10.2) mg/dL Phosphorus (2.5-4.5) mg/dL Total Bilirubin (0.2-1.3) mg/dL AST (14-36) U/L ALT (4-34) U/L Alkaline Phosphatase (38-126) U/L Troponin I (0.000-0.034) ng/mL NT-Pro-B Natriuret Pep 15048 pg/mL Total Protein (6.3-8.2) g/dL Albumin (3.5-5.0) g/dL TSH (0.465-4.680) mIU/L Urine Color Urine Appearance (Clear) Urine pH (5.0-8.0) Ur Specific Wilmot (1.001-1.035) Urine Protein (Negative) Urine Glucose (UA) (Negative) Urine Ketones (Negative) Urine Blood (Negative) Urine Nitrite (Negative) Urine Bilirubin (Negative) Urine Urobilinogen (<2.0) mg/dL Ur Leukocyte Esterase (Negative) Urine RBC (0-5) /hpf Urine WBC (0-5) /hpf Ur Squamous Epith Cells (0-4) /hpf Urine Bacteria (None) /hpf Hyaline Casts (0-2) /lpf Urine Mucus (None) /hpf Urine HCG, Qual (Not Detectd) Urine Opiates Screen (NotDetected) Ur Oxycodone Screen (NotDetected) Urine Methadone Screen (NotDetected) Ur Barbiturates Screen (NotDetected) Valproic Acid ug/mL U Tricyclic Antidepress (NotDetected) Ur Phencyclidine Scrn (NotDetected) Ur Amphetamines Screen (NotDetected) U Methamphetamines Scrn (NotDetected) U Benzodiazepines Scrn (NotDetected) Urine Cocaine Screen (NotDetected) U Marijuana (THC) Screen (NotDetected) Serum Alcohol mg/dL Acetone, Qual Positive (Negative) 05/14/24 05/14/24 05/14/24 Range/Units 12:45 13:47 13:47 WBC (3.8-10.6) k/uL RBC (3.80-5.40) m/uL Hgb (11.4-16.0) gm/dL Hct (34.0-46.0) % MCV (80.0-100.0) fL MCH (25.0-35.0) pg MCHC (31.0-37.0) g/dL RDW (11.5-15.5) % Plt Count (150-450) k/uL MPV Neutrophils % % Lymphocytes % % Monocytes % % Eosinophils % % Basophils % % Neutrophils # (1.3-7.7) k/uL Lymphocytes # (1.0-4.8) k/uL Monocytes # (0-1.0) k/uL Eosinophils # (0-0.7) k/uL Basophils # (0-0.2) k/uL Hypochromasia Anisocytosis Macrocytosis PT (10.0-12.5) sec INR (<1.2) APTT (22.0-30.0) sec Sample Site ABG pH (7.35-7.45) ABG pCO2 (35-45) mmHg ABG pO2 (83-108) mmHg ABG HCO3 (21-25) mmol/L ABG Total CO2 (19-24) mmol/L ABG O2 Saturation (94-97) % ABG Base Excess mmol/L Momo Test VBG pH (7.31-7.41) VBG pCO2 (37-51) mmHg VBG HCO3 (24-28) mmol/L FiO2 % Sodium (137-145) mmol/L Potassium (3.5-5.1) mmol/L Chloride (98-107) mmol/L Carbon Dioxide (22-30) mmol/L Anion Gap mmol/L BUN (7-17) mg/dL Creatinine (0.52-1.04) mg/dL Est GFR (CKD-EPI)AfAm (>60 ml/min/1.73 sqM) Est GFR (CKD-EPI)NonAf (>60 ml/min/1.73 sqM) Glucose (74-99) mg/dL POC Glucose (mg/dL) >600 H* (70-110) mg/dL POC Glu Payable Manager ID Marti Gordon Estimated Ave Glu mg/dL mg/dL Hemoglobin A1c (<=6.0) % Plasma Lactic Acid Christopher (0.7-2.0) mmol/L Calcium (8.4-10.2) mg/dL Phosphorus (2.5-4.5) mg/dL Total Bilirubin (0.2-1.3) mg/dL AST (14-36) U/L ALT (4-34) U/L Alkaline Phosphatase (38-126) U/L Troponin I (0.000-0.034) ng/mL NT-Pro-B Natriuret Pep pg/mL Total Protein (6.3-8.2) g/dL Albumin (3.5-5.0) g/dL TSH (0.465-4.680) mIU/L Urine Color Colorless Urine Appearance Clear (Clear) Urine pH 8.5 H (5.0-8.0) Ur Specific Wilmot 1.017 (1.001-1.035) Urine Protein 3+ H (Negative) Urine Glucose (UA) 4+ H (Negative) Urine Ketones Trace H (Negative) Urine Blood Trace H (Negative) Urine Nitrite Negative (Negative) Urine Bilirubin Negative (Negative) Urine Urobilinogen <2.0 (<2.0) mg/dL Ur Leukocyte Esterase Negative (Negative) Urine RBC 8 H (0-5) /hpf Urine WBC 2 (0-5) /hpf Ur Squamous Epith Cells 1 (0-4) /hpf Urine Bacteria Rare H (None) /hpf Hyaline Casts 7 H (0-2) /lpf Urine Mucus Rare H (None) /hpf Urine HCG, Qual Not Detected (Not Detectd) Urine Opiates Screen Detected H (NotDetected) Ur Oxycodone Screen Not Detected (NotDetected) Urine Methadone Screen Not Detected (NotDetected) Ur Barbiturates Screen Detected H (NotDetected) Valproic Acid ug/mL U Tricyclic Antidepress Not Detected (NotDetected) Ur Phencyclidine Scrn Not Detected (NotDetected) Ur Amphetamines Screen Not Detected (NotDetected) U Methamphetamines Scrn Not Detected (NotDetected) U Benzodiazepines Scrn Not Detected (NotDetected) Urine Cocaine Screen Not Detected (NotDetected) U Marijuana (THC) Screen Detected H (NotDetected) Serum Alcohol mg/dL Acetone, Qual (Negative) 05/14/24 05/14/24 05/14/24 Range/Units 13:50 14:41 14:50 WBC (3.8-10.6) k/uL RBC (3.80-5.40) m/uL Hgb (11.4-16.0) gm/dL Hct (34.0-46.0) % MCV (80.0-100.0) fL MCH (25.0-35.0) pg MCHC (31.0-37.0) g/dL RDW (11.5-15.5) % Plt Count (150-450) k/uL MPV Neutrophils % % Lymphocytes % % Monocytes % % Eosinophils % % Basophils % % Neutrophils # (1.3-7.7) k/uL Lymphocytes # (1.0-4.8) k/uL Monocytes # (0-1.0) k/uL Eosinophils # (0-0.7) k/uL Basophils # (0-0.2) k/uL Hypochromasia Anisocytosis Macrocytosis PT (10.0-12.5) sec INR (<1.2) APTT (22.0-30.0) sec Sample Site Right Radial ABG pH 7.41 (7.35-7.45) ABG pCO2 49 H (35-45) mmHg ABG pO2 152 H (83-108) mmHg ABG HCO3 31 H (21-25) mmol/L ABG Total CO2 33 H (19-24) mmol/L ABG O2 Saturation 100.1 H (94-97) % ABG Base Excess 5.9 mmol/L Momo Test Yes VBG pH (7.31-7.41) VBG pCO2 (37-51) mmHg VBG HCO3 (24-28) mmol/L FiO2 40 % Sodium (137-145) mmol/L Potassium (3.5-5.1) mmol/L Chloride (98-107) mmol/L Carbon Dioxide (22-30) mmol/L Anion Gap mmol/L BUN (7-17) mg/dL Creatinine (0.52-1.04) mg/dL Est GFR (CKD-EPI)AfAm (>60 ml/min/1.73 sqM) Est GFR (CKD-EPI)NonAf (>60 ml/min/1.73 sqM) Glucose (74-99) mg/dL POC Glucose (mg/dL) 542 H* 463 H (70-110) mg/dL POC Glu Payable Manager ID Marti Gordon Danielle Estimated Ave Glu mg/dL mg/dL Hemoglobin A1c (<=6.0) % Plasma Lactic Acid Christopher (0.7-2.0) mmol/L Calcium (8.4-10.2) mg/dL Phosphorus (2.5-4.5) mg/dL Total Bilirubin (0.2-1.3) mg/dL AST (14-36) U/L ALT (4-34) U/L Alkaline Phosphatase (38-126) U/L Troponin I (0.000-0.034) ng/mL NT-Pro-B Natriuret Pep pg/mL Total Protein (6.3-8.2) g/dL Albumin (3.5-5.0) g/dL TSH (0.465-4.680) mIU/L Urine Color Urine Appearance (Clear) Urine pH (5.0-8.0) Ur Specific Wilmot (1.001-1.035) Urine Protein (Negative) Urine Glucose (UA) (Negative) Urine Ketones (Negative) Urine Blood (Negative) Urine Nitrite (Negative) Urine Bilirubin (Negative) Urine Urobilinogen (<2.0) mg/dL Ur Leukocyte Esterase (Negative) Urine RBC (0-5) /hpf Urine WBC (0-5) /hpf Ur Squamous Epith Cells (0-4) /hpf Urine Bacteria (None) /hpf Hyaline Casts (0-2) /lpf Urine Mucus (None) /hpf Urine HCG, Qual (Not Detectd) Urine Opiates Screen (NotDetected) Ur Oxycodone Screen (NotDetected) Urine Methadone Screen (NotDetected) Ur Barbiturates Screen (NotDetected) Valproic Acid ug/mL U Tricyclic Antidepress (NotDetected) Ur Phencyclidine Scrn (NotDetected) Ur Amphetamines Screen (NotDetected) U Methamphetamines Scrn (NotDetected) U Benzodiazepines Scrn (NotDetected) Urine Cocaine Screen (NotDetected) U Marijuana (THC) Screen (NotDetected) Serum Alcohol mg/dL Acetone, Qual (Negative) Disposition Clinical Impression: Hypertensive emergency, Acute pulmonary edema, Acute respiratory failure, BiPAP (biphasic positive airway pressure) dependence, ESRD (end stage renal disease), Hyperglycemia Disposition: ADMITTED IP TO THIS HOSP Condition: Serious Is patient prescribed a controlled substance at d/c from ED?: No Time of Disposition: 15:35 Decision to Admit Reason: Admit from EC Decision Date: 05/14/24 Decision Time: 15:35
--- NOTE | 2024-05-14 14:27 | XR ---
EXAMINATION TYPE: XR chest 1V DATE OF EXAM: 05/14/2024 COMPARISON: 04/27/2024 HISTORY: 34-year-old female confusion, altered mental status TECHNIQUE: Single frontal view of the chest is obtained. FINDINGS: Right-sided double-lumen hemodialysis catheter tips in the upper right atrium. Heart mild to moderately enlarged. Diffuse interstitial and airspace opacity bilaterally is slightly less than f luid from prior exam. Suspect small right effusion. IMPRESSION: Bilateral diffuse pulmonary edema shows slight interval improvement.
[2024-05-14 14:43] LABS: Glucose,Whole Blood 463 mg/dL (70-110)
[2024-05-14 14:45] LABS: ABG Oxygen Saturation 100.1 % (94-97); ABG PCO2 49 mmHg (35-45); ABG PO2 152 mmHg (83-108); Allen Test Performed? Yes
[2024-05-14 14:57] LABS: ABG Base Excess 5.9 mmol/L; ABG HCO3 31 mmol/L (21-25); ABG PH 7.41 (7.35-7.45); ABG TCO2 33 mmol/L (19-24)
--- NOTE | 2024-05-14 15:34 | CT ---
EXAMINATION TYPE: CT brain wo con DATE OF EXAM: 05/14/2024 COMPARISON: 03/30/2024 HISTORY: 34-year-old female confusion, AMS, hypoxia TECHNIQUE: Examination was done in axial plane without intravenous contrast. Coronal and sagittal r econstructions performed. CT DLP: 1095.4 mGycm Automated exposure control for dose reduction was used. FINDINGS: There is no evidence of acute intracranial hemorrhage, acute ischemic changes, mass, mass-effect, or extra-axial fluid collection. There is no effacement of cerebral sulci or basal subarachnoid cister ns. There is no hydrocephalus. There is no midline shift. Zapata-white matter distinction is preserv ed. Paranasal sinuses and mastoid air cells are well pneumatized. Orbits and globes are intact. IMPRESSION: No acute intracranial abnormality seen. If symptoms persist consider MRI.
[2024-05-14] MEDS ORDERED: Phosphorus Replacement Protoco 1 EACH MISC MISCELLANE PRN (15:35)
[2024-05-14] MEDS ORDERED: Magnesium Replacement Protocol 1 EACH MISC MISCELLANE PRN (15:35)
[2024-05-14] MEDS ORDERED: NALOXONE 0.4 MG/ML 1 ML VIAL IV PRN (15:35)
[2024-05-14] MEDS ORDERED: Potassium Replacement Protocol 1 EACH MISC MISCELLANE PRN (15:35)
[2024-05-14] MEDS: hydrALAZINE HCL 20 MG/ML 1 ML VIAL IVP STA (15:39)
[2024-05-14] MEDS ORDERED: MAGNESIUM HYDROXIDE 2,400 MG/30 ML CUP PO PRN (15:40)
[2024-05-14 15:46] LABS: Glucose,Whole Blood 383 mg/dL (70-110)
[2024-05-14 16:28] LABS: African American GFR (CKD) 11 (>60 ml/min/1.73 sqM); Anion Gap 12 mmol/L; Blood Urea Nitrogen 42 mg/dL (7-17); Carbon Dioxide 29 mmol/L (22-30); Chloride 95 mmol/L (98-107); Glucose 326 mg/dL (74-99); Non-African American GFR(CKD) 9 (>60 ml/min/1.73 sqM); Potassium 4.6 mmol/L (3.5-5.1); Sodium 136 mmol/L (137-145)
[2024-05-14 16:33] LABS: NT-Pro-B-Type Natriuretic Pept 55500 pg/mL
[2024-05-14 16:49] LABS: Glucose,Whole Blood 261 mg/dL (70-110)
[2024-05-14] MEDS ORDERED: hydrALAZINE HCL 50 MG TAB PO SCH (17:00)
[2024-05-14] MEDS: SEVELAMER 800 MG TAB PO SCH ×2 (17:00→20:41)
[2024-05-14] MEDS: DIVALPROEX ER 500 MG TAB.ER.24H PO SCH (17:01)
[2024-05-14] MEDS: carvediloL 12.5 MG TAB PO SCH (17:01)
[2024-05-14] MEDS ORDERED: DEXTROSE 50% SYRINGE 50 ML IVP PRN (17:04)
[2024-05-14] MEDS: CLEVIDIPINE BUTYRATE 25 MG in EMPTY BAG 1 BAG IV SCH (17:10)
[2024-05-14] MEDS: hydrALAZINE HCL 20 MG/ML 1 ML VIAL IVP SCH (17:20)
[2024-05-14] MEDS: CLEVIDIPINE BUTYRATE 25 MG/50 ML VIAL IV ONE (17:36)
[2024-05-14 17:42] LABS: Glucose,Whole Blood 169 mg/dL (70-110)
[2024-05-14] MEDS: ONDANSETRON 4 MG/2 ML VIAL IVP PRN (18:31)
[2024-05-14] MEDS: ACETAMINOPHEN IV (For NPO) 1,000 MG in EMPTY BAG 1 BAG IVPB PRN (18:50)
[2024-05-14 19:06] LABS: Glucose,Whole Blood 102 mg/dL (70-110)
[2024-05-14 20:13] LABS: Glucose,Whole Blood 108 mg/dL (70-110)
[2024-05-14] MEDS: FOLIC ACID-VIT B COMPLEX-VIT C 1 CAP PO SCH (20:41)
[2024-05-14] MEDS: SACUBITRIL/VALSARTAN 49 MG-51 MG TABLET PO SCH (20:41)
[2024-05-14] MEDS: cloNIDine HCL 0.1 MG TAB PO SCH (20:41)
[2024-05-14] MEDS: ATORVASTATIN 40 MG TAB PO SCH (20:41)
[2024-05-14 21:00] LABS: Glucose,Whole Blood 121 mg/dL (70-110)
[2024-05-14 21:58] LABS: Glucose,Whole Blood 151 mg/dL (70-110)
[2024-05-14 23:18] LABS: Glucose,Whole Blood 251 mg/dL (70-110)
[2024-05-14] MEDS: INSULIN ASPART (NovoLOG) 100 UNIT/ML VIAL SQ SCH (23:23)
[2024-05-14] MEDS: MORPHINE SULFATE 2 MG/ML SYRINGE IVP PRN (23:24)
[2024-05-14] MEDS: carvediloL 12.5 MG TAB PO STA (23:29)
[2024-05-14] MEDS: INSULIN DETEMIR (LEVEMIR) 100 UNIT/ML SYR SQ SCH (23:38)
--- NOTE | 2024-05-15 02:02 | P.HPIM ---
History of Present Illness Aydin Kirkland is a 34 years old female of past medical history of acute pulmonary edema and hypertensive emergency and acute CHF. Presents because of altered mental status with acute respiratory difficulty. Patient in respiratory distress and agitated, she has placed on BiPAP. No family members at bedside and patient is not sitting up position. She also has evidence of acute kidney injury. Sugar was elevated more than 600 on admission. Patient has worsening labs with high creatinine 4.9. CT of the brain negative for acute process. Chest x-ray showed bilateral pulmonary edema or infiltrates. EKG sinus rhythm Patient was admitted to the ICU to be started on antihypertensive drips with close monitoring of mental status and other vital functions. Review of Systems ROS unobtainable: due to mental status Past Medical History Past Medical History: Diabetes Mellitus, GERD/Reflux, Hypertension, Renal Disease, Seizure Disorder, Thyroid Disorder Additional Past Medical History / Comment(s): Neuropathy, last seizure 2020, gastroparesis, headaches with dialysis, states "fast heart rate" since giving ., receives Hemodialysis (mon,,,wed), right chest hemodialysis catheter., severe HTN. states sometimes she has had stroke -like symptoms but no stroke., hx of c-diff 2013. 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 History of Any Multi-Drug Resistant Organisms: C-DIFF Date of last positivie culture/infection: 2013 MDRO Source:: stool Past Surgical History: Adenoidectomy, Section, Cholecystectomy, Orthopedic Surgery, Tonsillectomy Additional Past Surgical History / Comment(s): 2 KNEE SCOPES, EAR TUBES, additional left knee surgery, new [place] a cath jul 29, eye surgeries for diabetic retinopathy. Past Anesthesia/Blood Transfusion Reactions: Previous Problems w/ Anesthesia Additional Past Anesthesia/Blood Transfusion Reaction / Comment(s): confusion Past Psychological History: Anxiety, Depression Smoking Status: Current some day smoker Past Alcohol Use History: None Reported Past Drug Use History: Marijuana, Methamphetamine Additional Drug Use History / Comment(s): previously using marijuana edibles in nov 2023. Not eating currently - Past Family History Father History Unknown: Yes Family Medical History: Unable to Obtain Mother History Unknown: Yes Family Medical History: No Reported History Grandfather History Unknown: Yes Family Medical History: Coronary Artery Disease (CAD) Additional Family Medical History / Comment(s): Diabetes mellitus type 2 Medications and Allergies Home Medications Medication Instructions Recorded Confirmed Type Levothyroxine Sodium [Synthroid] 175 mcg PO DAILY@0600 10/22/23 05/14/24 History Sertraline [Zoloft] 200 mg PO DAILY@0800 10/22/23 05/14/24 History Atorvastatin [Lipitor] 40 mg PO HS@2100 12/27/23 05/14/24 History Divalproex ER [Depakote ER] 500 mg PO BID@0800,1700 12/27/23 05/14/24 History Ondansetron [Zofran] 4 mg PO Q8HR PRN 12/27/23 05/14/24 History Pantoprazole [Protonix] 40 mg PO DAILY@0600 12/27/23 05/14/24 History Kendall Caps 1 cap PO HS@2100 12/27/23 05/14/24 History methocarbamoL [Robaxin-750] 750 mg PO QID@02,06,12,17 12/27/23 05/14/24 History Aspirin 81 mg PO DAILY@0800 02/05/24 05/14/24 History Docusate [Colace] 100 mg PO DAILY@0800 02/05/24 05/14/24 History Lidocaine 4% Patch 1 patch TOPICAL DAILY@0800 02/05/24 05/14/24 History Magnesium Hydroxide [Milk of 7,200 mg PO DAILY PRN 02/05/24 05/14/24 History Magnesia Concentrate] NIFEdipine XL [Procardia XL] 60 mg PO BID@0800,1700 02/05/24 05/14/24 History Sevelamer [Renvela] 1,600 mg PO AC-TID@07,11,1630 02/05/24 05/14/24 History bisacodyL [Dulcolax] 10 mg RECTAL DAILY PRN 02/05/24 05/14/24 History Ipratropium-Albuterol Nebulize 3 ml INHALATION RT-TID PRN each 02/14/24 05/14/24 Rx [Duoneb 0.5 mg-3 mg/3 ml Soln] Isosorbide Mononitrate ER [Imdur] 30 mg PO DAILY tab 02/14/24 05/14/24 Rx Metoclopramide [Reglan] 5 mg PO AC-TID tab 02/14/24 05/14/24 Rx polyethylene glycoL 3350 [Miralax] 17 gm PO AC-LUNCH #527 gm 02/14/24 05/14/24 Rx Acetaminophen [Tylenol] 650 mg PO Q4H PRN 02/18/24 05/14/24 History Biotene Dry Mouth/Throat 10 ml PO BID PRN 02/18/24 05/14/24 History Melatonin 1 mg PO HS tab 02/25/24 05/14/24 Rx hydrALAZINE HCL [Apresoline] 150 mg PO TID tab 02/25/24 05/14/24 Rx traZODone HCL [Desyrel] 50 mg PO HS tab 02/25/24 05/14/24 Rx Butalb/APAP/Caff 50-325-40Mg 1 tab PO Q4HR PRN 03/14/24 05/14/24 History [Fioricet 50-325-40] Darbepoetin Artur [Aranesp] 40 mcg SQ MO 03/14/24 05/14/24 History Insulin Glargine [Lantus Vial] 25 unit SQ HS 03/14/24 05/14/24 History Sevelamer [Renvela] 800 mg PO HS 03/14/24 05/14/24 History ALPRAZolam [Xanax] 0.5 mg PO BID PRN #4 tab 03/30/24 05/14/24 Rx Loratadine [Claritin] 5 mg PO DAILY tab 03/30/24 05/14/24 Rx INSULIN ASPART (NovoLOG) [NovoLOG See Protocol SQ ACHS 04/16/24 05/14/24 History (formulary)] Acetaminophen-Codeine 300-30mg 1 tab PO Q6HR PRN 3 Days #12 tab 04/17/24 05/14/24 Rx [Tylenol w/codeine #3] carvediloL [Coreg] 25 mg PO BID-W/MEALS #60 tablet 04/29/24 05/14/24 Rx cloNIDine HCL [Catapres] 0.1 mg PO BID #90 tab 04/29/24 05/14/24 Rx Sacubitril/Valsartan [Entresto 49 1 tab PO BID 05/14/24 05/14/24 History mg-51 mg Tablet] Allergies Allergy/AdvReac Type Severity Reaction Status Date / Time hydromorphone HCl Allergy Anaphylaxis Verified 05/14/24 15:31 [From Dilaudid] propoxyphene Allergy Rash/Hives Verified 05/14/24 15:31 [From Darvocet-N] tramadol Allergy Anaphylaxis Verified 05/14/24 15:31 ibuprofen [From Motrin] AdvReac unable to Verified 05/14/24 15:31 take due to kidney disease venom-honey bee AdvReac passes out Verified 05/14/24 15:31 [bee venom (honey bee)] Physical Exam Vitals: Vital Signs Temp Pulse Resp BP Pulse Ox FiO2 05/14/24 19:00 103 H 10 L 158/87 94 L 05/14/24 18:45 121 H 15 161/91 94 L 05/14/24 18:30 115 H 17 174/101 96 05/14/24 18:15 115 H 12 163/99 99 05/14/24 18:00 105 H 11 L 159/89 100 05/14/24 17:45 95 16 180/96 100 05/14/24 17:30 87 15 200/116 100 05/14/24 17:15 84 12 197/107 99 05/14/24 17:14 69 10 L 197/107 100 05/14/24 16:45 97.8 F 79 14 200/126 100 40 05/14/24 16:32 78 20 180/105 99 05/14/24 14:35 40 05/14/24 14:15 79 16 229/126 99 05/14/24 11:57 40 05/14/24 11:56 40 05/14/24 11:45 215/138 97 05/14/24 11:15 72 L 05/14/24 10:26 97.7 F 92 16 191/131 92 L Intake and Output 05/14/24 05/14/24 05/14/24 06:59 14:59 22:59 Intake Total 24.262 72.431 Output Total 60 Balance 24.262 12.431 Intake: IV 30 0.9 KVO 30 Intake, IV Titration 24.262 42.431 Amount Clevidipine Butyrate 25 21.267 mg In Empty Bag 1 bag @ 1 MG/HR 2 mls/hr IV .Q24H [facility] Rx#:[id number] Insulin Regular 100 unit 24.262 18.294 In Sodium Chloride 0.9% 100 ml @ 0.1 UNITS/KG/HR 7.33 mls/hr IV .[id number] [facility] Rx#:[id number] Insulin Regular 100 unit 2.870 In Sodium Chloride 0.9% 100 ml @ Titrate IV .Q0M [facility] Rx#:[id number] Output: Urine 60 Other: Weight 72.575 kg 74.8 kg -GENERAL: The patient is confused HEENT: Pupils are round and equally reacting to light. EOMI. No scleral icterus. No conjunctival pallor. Normocephalic, atraumatic. No pharyngeal erythema. No thyromegaly. CARDIOVASCULAR: S1 and S2 present. No murmurs, rubs, or gallops. -PULMONARY: Chest is clear to auscultation, no wheezing , bilateral crepitations ABDOMEN: Soft, nontender, nondistended, normoactive bowel sounds. No palpable organomegaly. MUSCULOSKELETAL: No joint swelling or deformity. EXTREMITIES: No cyanosis, clubbing, or pedal edema. NEUROLOGICAL: Gross neurological examination did not reveal any focal deficits. SKIN: No rashes. no petechiae. Results CBC & Chem 7: 05/14/24 10:40 05/14/24 15:57 Labs: Abnormal Lab Results - Last 24 Hours (Table) 05/14/24 05/14/24 05/14/24 Range/Units 10:30 10:40 10:40 WBC 12.7 H (3.8-10.6) k/uL RBC 2.36 L (3.80-5.40) m/uL Hgb 8.0 L (11.4-16.0) gm/dL Hct 24.6 L (34.0-46.0) % MCV 104.1 H (80.0-100.0) fL RDW 18.4 H (11.5-15.5) % Neutrophils # 11.0 H (1.3-7.7) k/uL Lymphocytes # 0.8 L (1.0-4.8) k/uL ABG pCO2 (35-45) mmHg ABG pO2 (83-108) mmHg ABG HCO3 (21-25) mmol/L ABG Total CO2 (19-24) mmol/L ABG O2 Saturation (94-97) % VBG pH (7.31-7.41) VBG HCO3 (24-28) mmol/L Sodium 132 L (137-145) mmol/L Potassium 5.7 H (3.5-5.1) mmol/L Chloride 92 L (98-107) mmol/L BUN 39 H (7-17) mg/dL Creatinine 4.97 H (0.52-1.04) mg/dL Glucose 680 H* (74-99) mg/dL POC Glucose (mg/dL) >600 H* (70-110) mg/dL Phosphorus (2.5-4.5) mg/dL AST 46 H (14-36) U/L ALT 46 H (4-34) U/L Alkaline Phosphatase 199 H (38-126) U/L Urine pH (5.0-8.0) Urine Protein (Negative) Urine Glucose (UA) (Negative) Urine Ketones (Negative) Urine Blood (Negative) Urine RBC (0-5) /hpf Urine Bacteria (None) /hpf Hyaline Casts (0-2) /lpf Urine Mucus (None) /hpf Urine Opiates Screen (NotDetected) Ur Barbiturates Screen (NotDetected) U Marijuana (THC) Screen (NotDetected) 05/14/24 05/14/24 05/14/24 Range/Units 11:43 12:16 12:33 WBC (3.8-10.6) k/uL RBC (3.80-5.40) m/uL Hgb (11.4-16.0) gm/dL Hct (34.0-46.0) % MCV (80.0-100.0) fL RDW (11.5-15.5) % Neutrophils # (1.3-7.7) k/uL Lymphocytes # (1.0-4.8) k/uL ABG pCO2 (35-45) mmHg ABG pO2 (83-108) mmHg ABG HCO3 (21-25) mmol/L ABG Total CO2 (19-24) mmol/L ABG O2 Saturation (94-97) % VBG pH 7.44 H (7.31-7.41) VBG HCO3 32 H (24-28) mmol/L Sodium (137-145) mmol/L Potassium (3.5-5.1) mmol/L Chloride (98-107) mmol/L BUN (7-17) mg/dL Creatinine (0.52-1.04) mg/dL Glucose (74-99) mg/dL POC Glucose (mg/dL) >600 H* (70-110) mg/dL Phosphorus 4.8 H (2.5-4.5) mg/dL AST (14-36) U/L ALT (4-34) U/L Alkaline Phosphatase (38-126) U/L Urine pH (5.0-8.0) Urine Protein (Negative) Urine Glucose (UA) (Negative) Urine Ketones (Negative) Urine Blood (Negative) Urine RBC (0-5) /hpf Urine Bacteria (None) /hpf Hyaline Casts (0-2) /lpf Urine Mucus (None) /hpf Urine Opiates Screen (NotDetected) Ur Barbiturates Screen (NotDetected) U Marijuana (THC) Screen (NotDetected) 05/14/24 05/14/24 05/14/24 Range/Units 12:33 12:45 13:47 WBC (3.8-10.6) k/uL RBC (3.80-5.40) m/uL Hgb (11.4-16.0) gm/dL Hct (34.0-46.0) % MCV (80.0-100.0) fL RDW (11.5-15.5) % Neutrophils # (1.3-7.7) k/uL Lymphocytes # (1.0-4.8) k/uL ABG pCO2 (35-45) mmHg ABG pO2 (83-108) mmHg ABG HCO3 (21-25) mmol/L ABG Total CO2 (19-24) mmol/L ABG O2 Saturation (94-97) % VBG pH (7.31-7.41) VBG HCO3 (24-28) mmol/L Sodium 130 L (137-145) mmol/L Potassium 5.4 H (3.5-5.1) mmol/L Chloride 92 L (98-107) mmol/L BUN 41 H (7-17) mg/dL Creatinine 4.93 H (0.52-1.04) mg/dL Glucose 665 H* (74-99) mg/dL POC Glucose (mg/dL) >600 H* (70-110) mg/dL Phosphorus (2.5-4.5) mg/dL AST (14-36) U/L ALT (4-34) U/L Alkaline Phosphatase (38-126) U/L Urine pH 8.5 H (5.0-8.0) Urine Protein 3+ H (Negative) Urine Glucose (UA) 4+ H (Negative) Urine Ketones Trace H (Negative) Urine Blood Trace H (Negative) Urine RBC 8 H (0-5) /hpf Urine Bacteria Rare H (None) /hpf Hyaline Casts 7 H (0-2) /lpf Urine Mucus Rare H (None) /hpf Urine Opiates Screen Detected H (NotDetected) Ur Barbiturates Screen Detected H (NotDetected) U Marijuana (THC) Screen Detected H (NotDetected) 05/14/24 05/14/24 05/14/24 Range/Units 13:50 14:41 14:50 WBC (3.8-10.6) k/uL RBC (3.80-5.40) m/uL Hgb (11.4-16.0) gm/dL Hct (34.0-46.0) % MCV (80.0-100.0) fL RDW (11.5-15.5) % Neutrophils # (1.3-7.7) k/uL Lymphocytes # (1.0-4.8) k/uL ABG pCO2 49 H (35-45) mmHg ABG pO2 152 H (83-108) mmHg ABG HCO3 31 H (21-25) mmol/L ABG Total CO2 33 H (19-24) mmol/L ABG O2 Saturation 100.1 H (94-97) % VBG pH (7.31-7.41) VBG HCO3 (24-28) mmol/L Sodium (137-145) mmol/L Potassium (3.5-5.1) mmol/L Chloride (98-107) mmol/L BUN (7-17) mg/dL Creatinine (0.52-1.04) mg/dL Glucose (74-99) mg/dL POC Glucose (mg/dL) 542 H* 463 H (70-110) mg/dL Phosphorus (2.5-4.5) mg/dL AST (14-36) U/L ALT (4-34) U/L Alkaline Phosphatase (38-126) U/L Urine pH (5.0-8.0) Urine Protein (Negative) Urine Glucose (UA) (Negative) Urine Ketones (Negative) Urine Blood (Negative) Urine RBC (0-5) /hpf Urine Bacteria (None) /hpf Hyaline Casts (0-2) /lpf Urine Mucus (None) /hpf Urine Opiates Screen (NotDetected) Ur Barbiturates Screen (NotDetected) U Marijuana (THC) Screen (NotDetected) 05/14/24 05/14/24 05/14/24 Range/Units 15:44 15:57 16:46 WBC (3.8-10.6) k/uL RBC (3.80-5.40) m/uL Hgb (11.4-16.0) gm/dL Hct (34.0-46.0) % MCV (80.0-100.0) fL RDW (11.5-15.5) % Neutrophils # (1.3-7.7) k/uL Lymphocytes # (1.0-4.8) k/uL ABG pCO2 (35-45) mmHg ABG pO2 (83-108) mmHg ABG HCO3 (21-25) mmol/L ABG Total CO2 (19-24) mmol/L ABG O2 Saturation (94-97) % VBG pH (7.31-7.41) VBG HCO3 (24-28) mmol/L Sodium 136 L (137-145) mmol/L Potassium (3.5-5.1) mmol/L Chloride 95 L (98-107) mmol/L BUN 42 H (7-17) mg/dL Creatinine 5.61 H (0.52-1.04) mg/dL Glucose 326 H (74-99) mg/dL POC Glucose (mg/dL) 383 H 261 H (70-110) mg/dL Phosphorus (2.5-4.5) mg/dL AST (14-36) U/L ALT (4-34) U/L Alkaline Phosphatase (38-126) U/L Urine pH (5.0-8.0) Urine Protein (Negative) Urine Glucose (UA) (Negative) Urine Ketones (Negative) Urine Blood (Negative) Urine RBC (0-5) /hpf Urine Bacteria (None) /hpf Hyaline Casts (0-2) /lpf Urine Mucus (None) /hpf Urine Opiates Screen (NotDetected) Ur Barbiturates Screen (NotDetected) U Marijuana (THC) Screen (NotDetected) 05/14/24 Range/Units 17:41 WBC (3.8-10.6) k/uL RBC (3.80-5.40) m/uL Hgb (11.4-16.0) gm/dL Hct (34.0-46.0) % MCV (80.0-100.0) fL RDW (11.5-15.5) % Neutrophils # (1.3-7.7) k/uL Lymphocytes # (1.0-4.8) k/uL ABG pCO2 (35-45) mmHg ABG pO2 (83-108) mmHg ABG HCO3 (21-25) mmol/L ABG Total CO2 (19-24) mmol/L ABG O2 Saturation (94-97) % VBG pH (7.31-7.41) VBG HCO3 (24-28) mmol/L Sodium (137-145) mmol/L Potassium (3.5-5.1) mmol/L Chloride (98-107) mmol/L BUN (7-17) mg/dL Creatinine (0.52-1.04) mg/dL Glucose (74-99) mg/dL POC Glucose (mg/dL) 169 H (70-110) mg/dL Phosphorus (2.5-4.5) mg/dL AST (14-36) U/L ALT (4-34) U/L Alkaline Phosphatase (38-126) U/L Urine pH (5.0-8.0) Urine Protein (Negative) Urine Glucose (UA) (Negative) Urine Ketones (Negative) Urine Blood (Negative) Urine RBC (0-5) /hpf Urine Bacteria (None) /hpf Hyaline Casts (0-2) /lpf Urine Mucus (None) /hpf Urine Opiates Screen (NotDetected) Ur Barbiturates Screen (NotDetected) U Marijuana (THC) Screen (NotDetected) Thrombosis Risk Factor Assmnt - Choose All That Apply Any of the Below Risk Factors Present?: Yes Each Factor Represents 1 point: Medical pt on bed rest, Swollen legs (current) Other Risk Factors: No Other congenital or acquired thrombophilia - If yes, enter type in comment: No Thrombosis Risk Factor Assessment Total Risk Factor Score: 2 Thrombosis Risk Factor Assessment Level: Low Risk Assessment and Plan Assessment: Metabolic encephalopathy Hypertensive emergency Acute pulmonary edema End-stage kidney disease on hemodialysis 4 times a week. Diabetic ketoacidosis Anemia, chronic Plan: Continue close monitoring in the ICU Needs close monitoring of her blood pressure patient currently on clevidipine Continue insulin with close monitoring of glucos Pulmonary/critical care team on the case Nephrology team consult GI prophylaxis on Protonix DVT prophylaxis Prognosis is guarded
[2024-05-15 02:58] LABS: Glucose,Whole Blood 127 mg/dL (70-110)
--- NOTE | 2024-05-15 02:58 | P.CNPUL ---
History of Present Illness Consult date: 05/15/24 Requesting physician: Meri Burns Reason for consult: other (Pulmonary edema, acute hypoxemic respiratory failure, ICU management) Chief complaint: Altered mental status History of present illness: Patient is a 34-year-old white female with past medical history significant for uncontrolled hypertension, diabetes mellitus, end-stage renal disease (maintained on hemodialysis 4 times weekly), TIA/CVA, optic neuritis, among other things. Of note, patient has had multiple hospitalization this year for similar presentation, and she was just discharged on April 29. She returns to the emergency department afternoon with altered mental status. She was severely hyperglycemic with a initial blood glucose of 680 mg/dL. She was started on an insulin infusion which is currently paused. She was also found to be profoundly hypertensive, and started on clevidipine infusion which is currently at 13 mg/h. Chest x-ray consistent with fluid overload and pulmonary edema, patient was initially placed on BiPAP with settings 12/6 and FiO2 of 40%. ABG performed on admission showed a PaO2 of 152, pCO2 of 49, pH of 7.41. She did subsequently have emergent hemodialysis with ultrafiltration of 4.9 L earlier yesterday. She is currently in the intensive care unit. She is alert and oriented x 3 at the moment. On 3 L/min nasal cannula, in no acute respiratory distress. She states that she has been compliant with all her medications and has not missed any hemodialysis treatments. She does not remember events leading to this hospitalization. Denies any infectious-like symptoms. Denies any chest pain, heart palpitations, or syncopal events. She states that she is having severe generalized pain. She states that she normally takes [facility] at home. CBC: WBC count 12.7, hemoglobin 8, hematocrit 24.6, platelets 272. CMP: Sodium 136, potassium 4.6, chloride 95, serum bicarb 29, BUN 42, creatinine 5.61, glucose 326. Hemoglobin A1c 7.8. Lactic 1.1. LFTs mildly elevated. Total bilirubin 1.1. Troponin less than 0.012. NT proBNP 55,000. Patient has an indwelling urinary catheter, without any urine and urometer, and is reportedly an uric at home. Urine toxicology screen positive for opiates, barbiturates, and marijuana. Recent available echocardiogram performed 12/27/2023 estimates a preserved left ventricular ejection fraction of 55 to 60%, mild to moderate LVH, mild mitral and tricuspid regurgitation, as well as, a small pericardial effusion. Patient is being monitored in the intensive care unit at the moment. Review of Systems REVIEW OF SYSTEMS: CONSTITUTIONAL: Denies any recent significant weight loss or weight gain. EYES: Denies change in vision. EARS, NOSE, MOUTH, THROAT: Denies headaches, denies sore throat. CARDIOVASCULAR: Denies chest pain, palpitations or syncopal episodes. RESPIRATORY: Denies cough, congestion or hemoptysis. Admits mild shortness of breath. GASTROINTESTINAL: Denies change in appetite, abdominal pain, nausea and vomiting, or diarrhea GENITOURINARY: Denies hematuria, denies infections. MUSKULOSKELETAL: Denies swelling. Admits generalized constant pain INTEGUMENTARY: Denies rash, denies eczema. NEUROLOGICAL: Denies recent memory loss, no recent seizure activity. PSYCHIATRIC: Denies anxiety, denies depression. HEMATOLOGIC/LYMPHATIC: Denies anemia, denies enlarged lymph node Past Medical History Past Medical History: Diabetes Mellitus, GERD/Reflux, Hypertension, Renal Disease, Seizure Disorder, Thyroid Disorder Additional Past Medical History / Comment(s): Neuropathy, last seizure 2020, gastroparesis, headaches with dialysis, states "fast heart rate" since giving ., receives Hemodialysis (mon,,,sat), right chest hemodialysis catheter., severe HTN. states sometimes she has had stroke -like symptoms but no stroke., hx of c-diff 2013. 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 History of Any Multi-Drug Resistant Organisms: C-DIFF Date of last positivie culture/infection: 2013 MDRO Source:: stool Past Surgical History: Adenoidectomy, Section, Cholecystectomy, Orthopedic Surgery, Tonsillectomy Additional Past Surgical History / Comment(s): 2 KNEE SCOPES, EAR TUBES, additional left knee surgery, new port a cath jul 29, eye surgeries for diabetic retinopathy. Past Anesthesia/Blood Transfusion Reactions: Previous Problems w/ Anesthesia Additional Past Anesthesia/Blood Transfusion Reaction / Comment(s): confusion Past Psychological History: Anxiety, Depression Smoking Status: Current some day smoker Past Alcohol Use History: None Reported Past Drug Use History: Marijuana, Methamphetamine Additional Drug Use History / Comment(s): previously using marijuana edibles in nov 2023. Not eating currently - Past Family History Father History Unknown: Yes Family Medical History: Unable to Obtain Mother History Unknown: Yes Family Medical History: No Reported History Grandfather History Unknown: Yes Family Medical History: Coronary Artery Disease (CAD) Additional Family Medical History / Comment(s): Diabetes mellitus type 2 Medications and Allergies Home Medications Medication Instructions Recorded Confirmed Type Levothyroxine Sodium [Synthroid] 175 mcg PO DAILY@0600 10/22/23 05/14/24 History Sertraline [Zoloft] 200 mg PO DAILY@0800 10/22/23 05/14/24 History Atorvastatin [Lipitor] 40 mg PO HS@209912/27/23 05/14/24 History Divalproex ER [Depakote ER] 500 mg PO BID@0800,1700 12/27/23 05/14/24 History Ondansetron [Zofran] 4 mg PO Q8HR PRN 12/27/23 05/14/24 History Pantoprazole [Protonix] 40 mg PO DAILY@59912/27/23 05/14/24 History [place] Caps 1 cap PO HS@209912/27/23 05/14/24 History methocarbamoL [Robaxin-750] 750 mg PO QID@02,,,12/27/23 05/14/24 History Aspirin 81 mg PO DAILY@0800 02/05/24 05/14/24 History Docusate [Colace] 100 mg PO DAILY@0800 02/05/24 05/14/24 History Lidocaine 4% Patch 1 patch TOPICAL DAILY@0802/05/24 05/14/24 History Magnesium Hydroxide [Milk of 7,200 mg PO DAILY PRN 02/05/24 05/14/24 History Magnesia Concentrate] NIFEdipine XL [Procardia XL] 60 mg PO BID@0800,1700 02/05/24 05/14/24 History Sevelamer [Renvela] 1,600 mg PO AC-TID@07,,1630 02/05/24 05/14/24 History bisacodyL [Dulcolax] 10 mg RECTAL DAILY PRN 02/05/24 05/14/24 History Ipratropium-Albuterol Nebulize 3 ml INHALATION RT-TID PRN each 02/14/24 05/14/24 Rx [Duoneb 0.5 mg-3 mg/3 ml Soln] Isosorbide Mononitrate ER [Imdur] 30 mg PO DAILY tab 02/14/24 05/14/24 Rx Metoclopramide [Reglan] 5 mg PO AC-TID tab 02/14/24 05/14/24 Rx polyethylene glycoL 3350 [Miralax] 17 gm PO AC-LUNCH #527 gm 02/14/24 05/14/24 Rx Acetaminophen [Tylenol] 650 mg PO Q4H PRN 02/18/24 05/14/24 History Biotene Dry Mouth/Throat 10 ml PO BID PRN 02/18/24 05/14/24 History Melatonin 1 mg PO HS tab 02/25/24 05/14/24 Rx hydrALAZINE HCL [Apresoline] 150 mg PO TID tab 02/25/24 05/14/24 Rx traZODone HCL [Desyrel] 50 mg PO HS tab 02/25/24 05/14/24 Rx Butalb/APAP/Caff 50-325-40Mg 1 tab PO Q4HR PRN 03/14/24 05/14/24 History [Fioricet 50-325-40] Darbepoetin Artur [Aranesp] 40 mcg SQ MO 03/14/24 05/14/24 History Insulin Glargine [Lantus Vial] 25 unit SQ HS 03/14/24 05/14/24 History Sevelamer [Renvela] 800 mg PO HS 03/14/24 05/14/24 History ALPRAZolam [Xanax] 0.5 mg PO BID PRN #4 tab 03/30/24 05/14/24 Rx Loratadine [Claritin] 5 mg PO DAILY tab 03/30/24 05/14/24 Rx INSULIN ASPART (NovoLOG) [NovoLOG See Protocol SQ ACHS 04/16/24 05/14/24 History (formulary)] Acetaminophen-Codeine 300-30mg 1 tab PO Q6HR PRN 3 Days #12 tab 04/17/24 05/14/24 Rx [Tylenol w/codeine #3] carvediloL [Coreg] 25 mg PO BID-W/MEALS #60 tablet 04/29/24 05/14/24 Rx cloNIDine HCL [Catapres] 0.1 mg PO BID #90 tab 04/29/24 05/14/24 Rx Sacubitril/Valsartan [Entresto 49 1 tab PO BID 05/14/24 05/14/24 History mg-51 mg Tablet] Allergies Allergy/AdvReac Type Severity Reaction Status Date / Time hydromorphone HCl Allergy Anaphylaxis Verified 05/14/24 15:31 [From Dilaudid] propoxyphene Allergy Rash/Hives Verified 05/14/24 15:31 [From Darvocet-N] tramadol Allergy Anaphylaxis Verified 05/14/24 15:31 ibuprofen [From Motrin] AdvReac unable to Verified 05/14/24 15:31 take due to kidney disease venom-honey bee AdvReac passes out Verified 05/14/24 15:31 [bee venom (honey bee)] Physical Exam Vitals: Vital Signs Temp Pulse Pulse Resp BP BP Pulse Ox 05/15/24 02:00 104 H 10 L 144/82 91 L 05/15/24 01:45 106 H 10 L 150/81 93 L 05/15/24 01:30 99 8 L 159/93 93 L 05/15/24 01:15 98 12 148/81 92 L 05/15/24 01:00 111 H 10 L 145/82 95 05/15/24 00:45 101 H 10 L 150/78 95 05/15/24 00:30 106 H 12 149/77 92 L 05/15/24 00:15 112 H 9 L 152/79 91 L 05/15/24 00:00 104 H 7 L 155/84 94 L 05/14/24 23:45 116 H 10 L 149/79 94 L 05/14/24 23:44 114 H 10 L 149/79 93 L 05/14/24 23:30 108 H 10 L 147/81 96 05/14/24 23:15 110 H 11 L 153/82 93 L 05/14/24 23:00 113 H 12 155/80 96 05/14/24 22:45 114 H 8 L 150/82 95 05/14/24 22:30 106 H 10 L 142/82 95 05/14/24 22:15 108 H 12 145/85 93 L 05/14/24 22:00 112 H 16 146/86 96 05/14/24 21:45 112 H 14 157/85 93 L 05/14/24 21:30 104 H 12 147/83 95 05/14/24 21:15 107 H 15 152/90 98 05/14/24 21:00 107 H 11 L 158/86 95 05/14/24 20:51 111 H 20 150/90 05/14/24 20:45 107 H 18 156/87 95 05/14/24 20:30 108 H 121 H 150/90 93 L 05/14/24 20:15 113 H 10 L 161/88 96 05/14/24 20:00 97.8 F 109 H 10 L 172/101 97 05/14/24 19:45 104 H 12 172/112 93 L 05/14/24 19:30 106 H 14 184/124 94 L 05/14/24 19:15 100 9 L 179/110 93 L 05/14/24 19:00 103 H 10 L 158/87 94 L 05/14/24 18:45 121 H 15 161/91 94 L 05/14/24 18:30 115 H 17 174/101 96 05/14/24 18:15 115 H 12 163/99 99 05/14/24 18:00 105 H 11 L 159/89 100 05/14/24 17:45 95 16 180/96 100 05/14/24 17:30 87 15 200/116 100 05/14/24 17:15 84 12 197/107 99 05/14/24 17:14 69 10 L 197/107 100 05/14/24 16:45 97.8 F 79 14 200/126 100 05/14/24 16:32 78 20 180/105 99 05/14/24 14:35 05/14/24 14:15 79 16 229/126 99 05/14/24 11:57 05/14/24 11:56 05/14/24 11:45 215/138 97 05/14/24 11:15 72 L 05/14/24 10:26 97.7 F 92 16 191/131 92 L FiO2 05/15/24 02:00 05/15/24 01:45 05/15/24 01:30 05/15/24 01:15 05/15/24 01:00 05/15/24 00:45 05/15/24 00:30 05/15/24 00:15 05/15/24 00:00 05/14/24 23:45 05/14/24 23:44 05/14/24 23:30 05/14/24 23:15 05/14/24 23:00 05/14/24 22:45 05/14/24 22:30 05/14/24 22:15 05/14/24 22:00 05/14/24 21:45 05/14/24 21:30 05/14/24 21:15 05/14/24 21:00 05/14/24 20:51 05/14/24 20:45 05/14/24 20:30 05/14/24 20:15 05/14/24 20:00 05/14/24 19:45 05/14/24 19:30 05/14/24 19:15 05/14/24 19:00 05/14/24 18:45 05/14/24 18:30 05/14/24 18:15 05/14/24 18:00 05/14/24 17:45 05/14/24 17:30 05/14/24 17:15 05/14/24 17:14 05/14/24 16:45 40 05/14/24 16:32 05/14/24 14:35 40 05/14/24 14:15 05/14/24 11:57 40 05/14/24 11:56 40 05/14/24 11:45 05/14/24 11:15 05/14/24 10:26 Intake and Output 05/14/24 05/14/24 05/15/24 14:59 22:59 06:59 Intake Total 24.262 552.431 132.733 Output Total 4975 0 Balance 24.262 -4422.569 132.733 Intake: IV 60 20 0.9 KVO 60 20 Intake, IV Titration 24.262 92.431 112.733 Amount Clevidipine Butyrate 25 71.267 112.733 mg In Empty Bag 1 bag @ 1 MG/HR 2 mls/hr IV .Q24H [facility] Rx#:[id number] Insulin Regular 100 unit 24.262 18.294 In Sodium Chloride 0.9% 100 ml @ 0.1 UNITS/KG/HR 7.33 mls/hr IV .[id number] [facility] Rx#:[id number] Insulin Regular 100 unit 2.870 In Sodium Chloride 0.9% 100 ml @ Titrate IV .Q0M [facility] Rx#:[id number] Hemodialysis 400 Output: Urine 75 0 Hemodialysis 4900 Other: Voiding Method Indwelling Catheter Indwelling Catheter Weight 72.575 kg 74.8 kg GENERAL EXAM: Alert, 34-year-old white female, teary-eyed and groaning. HEAD: Normocephalic and atraumatic EYES: Normal reaction of pupils, equal size. NOSE: Clear with pink turbinates. THROAT: No erythema or exudates. NECK: No masses, no JVD. CHEST: No chest wall deformity. LUNGS: Equal air entry with minimal inspiratory bibasilar crackles. On 3 L/min nasal cannula. No conversational dyspnea or accessory muscle use.. CVS: S1 and S2 normal with no audible murmur, regular rhythm. No extra heart sounds. Tachycardic on bedside monitor ABDOMEN: No hepatosplenomegaly, active bowel sounds, no guarding or rigidity. SPINE: No scoliosis or deformity SKIN: No rashes CENTRAL NERVOUS SYSTEM: Alert and oriented x 3, cranial nerves II through XII intact, mild right-sided hemiparesis, gait assessment was deferred, patellar DTRs 2+ bilaterally. EXTREMITIES: There is no peripheral edema, clubbing, or cyanosis. Peripheral pulses are intact. Results - Laboratory Findings CBC and BMP: 05/15/24 05:18 05/15/24 05:18 ABG ABG pH 7.41 (7.35-7.45) 05/14/24 14:50 ABG pCO2 49 mmHg (35-45) H 05/14/24 14:50 ABG pO2 152 mmHg (83-108) H 05/14/24 14:50 ABG O2 Saturation 100.1 % (94-97) H 05/14/24 14:50 PT/INR, D-dimer PT 11.6 sec (10.0-12.5) 05/14/24 10:40 INR 1.1 (<1.2) 05/14/24 10:40 Abnormal lab findings: Abnormal Labs 05/14/24 05/14/24 05/14/24 10:30 10:40 10:40 WBC 12.7 H RBC 2.36 L Hgb 8.0 L Hct 24.6 L MCV 104.1 H RDW 18.4 H Neutrophils # 11.0 H Lymphocytes # 0.8 L ABG pCO2 ABG pO2 ABG HCO3 ABG Total CO2 ABG O2 Saturation VBG pH VBG HCO3 Sodium 132 L Potassium 5.7 H Chloride 92 L BUN 39 H Creatinine 4.97 H Glucose 680 H* POC Glucose (mg/dL) >600 H* Hemoglobin A1c Phosphorus AST 46 H ALT 46 H Alkaline Phosphatase 199 H Urine pH Urine Protein Urine Glucose (UA) Urine Ketones Urine Blood Urine RBC Urine Bacteria Hyaline Casts Urine Mucus Urine Opiates Screen Ur Barbiturates Screen U Marijuana (THC) Screen 05/14/24 05/14/24 05/14/24 10:40 11:43 12:16 WBC RBC Hgb Hct MCV RDW Neutrophils # Lymphocytes # ABG pCO2 ABG pO2 ABG HCO3 ABG Total CO2 ABG O2 Saturation VBG pH 7.44 H VBG HCO3 32 H Sodium Potassium Chloride BUN Creatinine Glucose POC Glucose (mg/dL) >600 H* Hemoglobin A1c 7.8 H Phosphorus AST ALT Alkaline Phosphatase Urine pH Urine Protein Urine Glucose (UA) Urine Ketones Urine Blood Urine RBC Urine Bacteria Hyaline Casts Urine Mucus Urine Opiates Screen Ur Barbiturates Screen U Marijuana (THC) Screen 05/14/24 05/14/24 05/14/24 12:33 12:33 12:45 WBC RBC Hgb Hct MCV RDW Neutrophils # Lymphocytes # ABG pCO2 ABG pO2 ABG HCO3 ABG Total CO2 ABG O2 Saturation VBG pH VBG HCO3 Sodium 130 L Potassium 5.4 H Chloride 92 L BUN 41 H Creatinine 4.93 H Glucose 665 H* POC Glucose (mg/dL) >600 H* Hemoglobin A1c Phosphorus 4.8 H AST ALT Alkaline Phosphatase Urine pH Urine Protein Urine Glucose (UA) Urine Ketones Urine Blood Urine RBC Urine Bacteria Hyaline Casts Urine Mucus Urine Opiates Screen Ur Barbiturates Screen U Marijuana (THC) Screen 05/14/24 05/14/24 05/14/24 13:47 13:50 14:41 WBC RBC Hgb Hct MCV RDW Neutrophils # Lymphocytes # ABG pCO2 ABG pO2 ABG HCO3 ABG Total CO2 ABG O2 Saturation VBG pH VBG HCO3 Sodium Potassium Chloride BUN Creatinine Glucose POC Glucose (mg/dL) 542 H* 463 H Hemoglobin A1c Phosphorus AST ALT Alkaline Phosphatase Urine pH 8.5 H Urine Protein 3+ H Urine Glucose (UA) 4+ H Urine Ketones Trace H Urine Blood Trace H Urine RBC 8 H Urine Bacteria Rare H Hyaline Casts 7 H Urine Mucus Rare H Urine Opiates Screen Detected H Ur Barbiturates Screen Detected H U Marijuana (THC) Screen Detected H 05/14/24 05/14/24 05/14/24 14:50 15:44 15:57 WBC RBC Hgb Hct MCV RDW Neutrophils # Lymphocytes # ABG pCO2 49 H ABG pO2 152 H ABG HCO3 31 H ABG Total CO2 33 H ABG O2 Saturation 100.1 H VBG pH VBG HCO3 Sodium 136 L Potassium Chloride 95 L BUN 42 H Creatinine 5.61 H Glucose 326 H POC Glucose (mg/dL) 383 H Hemoglobin A1c Phosphorus AST ALT Alkaline Phosphatase Urine pH Urine Protein Urine Glucose (UA) Urine Ketones Urine Blood Urine RBC Urine Bacteria Hyaline Casts Urine Mucus Urine Opiates Screen Ur Barbiturates Screen U Marijuana (THC) Screen 05/14/24 05/14/24 05/14/24 16:46 17:41 20:59 WBC RBC Hgb Hct MCV RDW Neutrophils # Lymphocytes # ABG pCO2 ABG pO2 ABG HCO3 ABG Total CO2 ABG O2 Saturation VBG pH VBG HCO3 Sodium Potassium Chloride BUN Creatinine Glucose POC Glucose (mg/dL) 261 H 169 H 121 H Hemoglobin A1c Phosphorus AST ALT Alkaline Phosphatase Urine pH Urine Protein Urine Glucose (UA) Urine Ketones Urine Blood Urine RBC Urine Bacteria Hyaline Casts Urine Mucus Urine Opiates Screen Ur Barbiturates Screen U Marijuana (THC) Screen 05/14/24 05/14/24 21:56 23:16 WBC RBC Hgb Hct MCV RDW Neutrophils # Lymphocytes # ABG pCO2 ABG pO2 ABG HCO3 ABG Total CO2 ABG O2 Saturation VBG pH VBG HCO3 Sodium Potassium Chloride BUN Creatinine Glucose POC Glucose (mg/dL) 151 H 251 H Hemoglobin A1c Phosphorus AST ALT Alkaline Phosphatase Urine pH Urine Protein Urine Glucose (UA) Urine Ketones Urine Blood Urine RBC Urine Bacteria Hyaline Casts Urine Mucus Urine Opiates Screen Ur Barbiturates Screen U Marijuana (THC) Screen - Diagnostic Findings Chest x-ray: image reviewed Assessment and Plan Assessment: Acute hypoxemic respiratory failure, initially requiring BiPAP, secondary to flu id overload and diffuse pulmonary edema. Status/post emergent hemodialysis with ultrafiltration of a total of 4.9 L Hypertensive urgency, currently on a clevidipine infusion Severe hyperglycemia, initially placed on insulin infusion Diabetes mellitus, insulin-dependent Altered mental status, possibly secondary to a component of hypertensive encephalopathy, improved End-stage renal disease, maintained on hemodialysis 4 times a week, patient denies missing any sessions of hemodialysis Anemia of chronic disease History of CVA/TIA History of optic neuritis Plan: Patient's medications, labs, imaging reviewed Continue supplemental oxygen maintain oxygen saturation of 92% or greater. P jass initially was placed on BiPAP, but has already been weaned off after hemodialysis. Currently on 3 L/min nasal cannula. SpO2 93% Patient is already received emergent hemodialysis with ultrafiltration of 4.9 L, being followed by nephrology for hemodialysis recommendations. Continue clevidipine infusion for severe hypertension, will reintroduce home antihypertensive medications Patient has been transitioned by admitting to a sliding scale insulin protocol. No longer requiring insulin infusion Please remove indwelling urinary catheter if patient remains anuric Heparin for DVT prophylaxis Protonix for GI prophylaxis Patient will be monitored in the intensive care unit I have personally seen and examined the patient, performed the documentation and the assessment and plan as written. Number of minutes spent on the visit:20 This is a joint evaluation that was done along with the nurse practitioner. This evaluation was done more than 30. This is a joint evaluation. In summary, this patient is coming Acute hypoxic respiratory failure, hypertensive emergency, pulmonary edema as the patient missed a session of hemodialysis. The patient is currently calm and comfortable. She is off the BiPAP and she is on 2 L of oxygen by nasal cannula. Hemodialysis ultrafiltration was performed yesterday with a total of 4.5 L another session of 3 L is in progress for now. The patient is awake and alert and communicating. His blood pressure remains elevated. She was taken off the Cleviprex drip and the patient is currently on a combination of clonidine, Coreg, IV hydralazine and nifedipine is to be started. Blood pressure is being monitored very closely in the intensive care unit. Labs were reviewed. The patient was kept in the ICU. Nephrology on the case. Dialysis in progress. No signs of any significant respiratory distress at this point in time. Slight nausea is present. In terms of blood sugar control, the patient is currently on Levemir insulin 25 units at bedtime along with NovoLog sliding scale insulin coverage. Will keep the patient in the intensive care unit. Will monitor her progress. Further recommendations are to follow. Condition is still critical at this point in time. Time with Patient: Greater than 30
[2024-05-15 06:00] LABS: Glucose,Whole Blood 63 mg/dL (70-110)
[2024-05-15] MEDS ORDERED: PANTOPRAZOLE 40 MG TABLET PO SCH (06:00)
[2024-05-15 06:17] LABS: Glucose,Whole Blood 58 mg/dL (70-110)
[2024-05-15] MEDS: DEXTROSE 50% SYRINGE 50 ML IVP PRN (06:22)
[2024-05-15] MEDS: LEVOTHYROXINE 75 MCG TAB PO SCH (06:24)
[2024-05-15] MEDS: LEVOTHYROXINE 100 MCG TAB PO SCH (06:24)
[2024-05-15 06:31] LABS: Glucose,Whole Blood 147 mg/dL (70-110)
[2024-05-15 06:33] LABS: Anisocytosis Slight; Basophils # (A) 0.1 k/uL (0-0.2); Basophils % (A) 1 %; Eosinophils # (A) 0.9 k/uL (0-0.7); Eosinophils % (A) 8 %; HCT 26.7 % (34.0-46.0); HGB 8.6 gm/dL (11.4-16.0); Lymphocytes # (A) 1.6 k/uL (1.0-4.8); Lymphocytes % (A) 15 %; MCH 33.3 pg (25.0-35.0); MCHC 32.3 g/dL (31.0-37.0); MCV 103.1 fL (80.0-100.0); Macrocytosis Moderate; Mean Platelet Volume 8.2; Monocytes # (A) 0.4 k/uL (0-1.0); Monocytes % (A) 4 %; Neutrophils # (A) 7.9 k/uL (1.3-7.7); Neutrophils % (A) 72 %; Platelet Count 304 k/uL (150-450); RBC 2.59 m/uL (3.80-5.40); RDW 19.3 % (11.5-15.5)
[2024-05-15 06:34] LABS: African American GFR (CKD) 17 (>60 ml/min/1.73 sqM); Anion Gap 10 mmol/L; Blood Urea Nitrogen 21 mg/dL (7-17); Calcium 9.5 mg/dL (8.4-10.2); Carbon Dioxide 28 mmol/L (22-30); Chloride 96 mmol/L (98-107); Glucose 62 mg/dL (74-99); Non-African American GFR(CKD) 15 (>60 ml/min/1.73 sqM); Sodium 134 mmol/L (137-145)
[2024-05-15] MEDS: ASPIRIN 81 MG PO SCH (07:59)
[2024-05-15] MEDS: HEPARIN SODIUM,PORCINE 5,000 UNIT/ML 1 ML VIAL SQ SCH (07:59)
[2024-05-15] MEDS: DOCUSATE 100 MG CAP PO SCH (07:59)
[2024-05-15] MEDS: ISOSORBIDE MONONITRATE ER 30 MG TAB.ER.24H PO SCH (07:59)
[2024-05-15] MEDS: PANTOPRAZOLE 40 MG/10 ML VIAL IVP SCH (07:59)
[2024-05-15 08:25] LABS: Glucose,Whole Blood 133 mg/dL (70-110)
--- NOTE | 2024-05-15 08:29 | XR ---
EXAMINATION TYPE: XR chest 1V portable DATE OF EXAM: 05/15/2024 Comparison: 05/14/2024 Clinical History: 34-year-old female pulmonary edema; fluid overload Findings: Right-sided double lumen hemodialysis catheter tips in the right atrium. Heart mildly enlarged. Inter stitial opacities and patchy bibasilar opacities persists but with slight improvement in the interval . Possible trace left effusion. Impression: Patchy pulmonary edema shows slight interval improvement.
[2024-05-15] MEDS: ACETAMINOPHEN TAB 325 MG TAB PO PRN (09:48)
--- NOTE | 2024-05-15 10:17 | P.NPCON ---
History of Present Illness - Reason for Consult end stage renal disease - History of Present Illness Reason for consultation: End-stage renal disease History of present illness: Patient is a 34-year-old female seen in renal consultation for end-stage renal disease. She is maintained on hemodialysis on Wednesday. Patient says she went to hemodialysis Wednesday but cut the treatment short by about 1 hour. Patient says yesterday she developed nausea and vomiting and also developed shortness of breath. She was subsequently brought to the hospital. Patient blood glucose was 680 and she was started on insulin drip as well as IV fluids per DKA protocol. Subsequently IV fluids were discontinued as the patient was noted to be in pulmonary edema. She underwent emergent hemodialysis yesterday with 4.5 L ultrafiltration. She is currently seen while undergoing another treatment of hemodialysis. Patient is currently on a nasal cannula. She denies history of coronary artery disease. Denies fever or chills. Denies chest pain. Patient's blood pressure was over 200 systolic initially but is better controlled now. Most recent blood pressure 148/93. Vital signs are stable. General: No acute distress. HEENT: Head exam is unremarkable. On nasal cannula. LUNGS: No audible rhonchi or wheezes. HEART: Rate and Rhythm are regular. ABDOMEN: Nontender. EXTREMITITES: No edema. Past Medical History Past Medical History: Diabetes Mellitus, GERD/Reflux, Hypertension, Renal Disease, Seizure Disorder, Thyroid Disorder Additional Past Medical History / Comment(s): Neuropathy, last seizure 2020, gastroparesis, headaches with dialysis, states "fast heart rate" since giving ., receives Hemodialysis (wed,,,wed), right chest hemodialysis catheter., severe HTN. states sometimes she has had stroke -like symptoms but no stroke., hx of c-diff 2013. 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 History of Any Multi-Drug Resistant Organisms: C-DIFF Date of last positivie culture/infection: 2013 MDRO Source:: stool Past Surgical History: Adenoidectomy, Section, Cholecystectomy, Orthopedic Surgery, Tonsillectomy Additional Past Surgical History / Comment(s): 2 KNEE SCOPES, EAR TUBES, additional left knee surgery, [place] a cath jul 29, eye surgeries for kesha betic retinopathy. Past Anesthesia/Blood Transfusion Reactions: Previous Problems w/ Anesthesia Additional Past Anesthesia/Blood Transfusion Reaction / Comment(s): confusion Past Psychological History: Anxiety, Depression Smoking Status: Current some day smoker Past Alcohol Use History: None Reported Past Drug Use History: Marijuana, Methamphetamine Additional Drug Use History / Comment(s): previously using marijuana edibles in nov 2023. Not eating currently - Past Family History Father History Unknown: Yes Family Medical History: Unable to Obtain Mother History Unknown: Yes Family Medical History: No Reported History Grandfather History Unknown: Yes Family Medical History: Coronary Artery Disease (CAD) Additional Family Medical History / Comment(s): Diabetes mellitus type 2 Medications and Allergies Home Medications Medication Instructions Recorded Confirmed Type Levothyroxine Sodium [Synthroid] 175 mcg PO DAILY@0600 10/22/23 05/14/24 History Sertraline [Zoloft] 200 mg PO DAILY@0800 10/22/23 05/14/24 History Atorvastatin [Lipitor] 40 mg PO HS@209912/27/23 05/14/24 History Divalproex ER [Depakote ER] 500 mg PO BID@0800,1700 12/27/23 05/14/24 History Ondansetron [Zofran] 4 mg PO Q8HR PRN 12/27/23 05/14/24 History Pantoprazole [Protonix] 40 mg PO DAILY@59912/27/23 05/14/24 History Ventura Caps 1 cap PO HS@209912/27/23 05/14/24 History methocarbamoL [Robaxin-750] 750 mg PO QID@02,,12,12/27/23 05/14/24 History Aspirin 81 mg PO DAILY@0802/05/24 05/14/24 History Docusate [Colace] 100 mg PO DAILY@0800 02/05/24 05/14/24 History Lidocaine 4% Patch 1 patch TOPICAL DAILY@0802/05/24 05/14/24 History Magnesium Hydroxide [Milk of 7,200 mg PO DAILY PRN 02/05/24 05/14/24 History Magnesia Concentrate] NIFEdipine XL [Procardia XL] 60 mg PO BID@0800,1700 02/05/24 05/14/24 History Sevelamer [Renvela] 1,600 mg PO AC-TID@07,11,1630 02/05/24 05/14/24 History bisacodyL [Dulcolax] 10 mg RECTAL DAILY PRN 02/05/24 05/14/24 History Ipratropium-Albuterol Nebulize 3 ml INHALATION RT-TID PRN each 02/14/24 05/14/24 Rx [Duoneb 0.5 mg-3 mg/3 ml Soln] Isosorbide Mononitrate ER [Imdur] 30 mg PO DAILY tab 02/14/24 05/14/24 Rx Metoclopramide [Reglan] 5 mg PO AC-TID tab 02/14/24 05/14/24 Rx polyethylene glycoL 3350 [Miralax] 17 gm PO AC-LUNCH #527 gm 02/14/24 05/14/24 Rx Acetaminophen [Tylenol] 650 mg PO Q4H PRN 02/18/24 05/14/24 History Biotene Dry Mouth/Throat 10 ml PO BID PRN 02/18/24 05/14/24 History Melatonin 1 mg PO HS tab 02/25/24 05/14/24 Rx hydrALAZINE HCL [Apresoline] 150 mg PO TID tab 02/25/24 05/14/24 Rx traZODone HCL [Desyrel] 50 mg PO HS tab 02/25/24 05/14/24 Rx Butalb/APAP/Caff 50-325-40Mg 1 tab PO Q4HR PRN 03/14/24 05/14/24 History [Fioricet 50-325-40] Darbepoetin Artur [Aranesp] 40 mcg SQ MO 03/14/24 05/14/24 History Insulin Glargine [Lantus Vial] 25 unit SQ HS 03/14/24 05/14/24 History Sevelamer [Renvela] 800 mg PO HS 03/14/24 05/14/24 History ALPRAZolam [Xanax] 0.5 mg PO BID PRN #4 tab 03/30/24 05/14/24 Rx Loratadine [Claritin] 5 mg PO DAILY tab 03/30/24 05/14/24 Rx INSULIN ASPART (NovoLOG) [NovoLOG See Protocol SQ ACHS 04/16/24 05/14/24 History (formulary)] Acetaminophen-Codeine 300-30mg 1 tab PO Q6HR PRN 3 Days #12 tab 04/17/24 05/14/24 Rx [Tylenol w/codeine #3] carvediloL [Coreg] 25 mg PO BID-W/MEALS #60 tablet 04/29/24 05/14/24 Rx cloNIDine HCL [Catapres] 0.1 mg PO BID #90 tab 04/29/24 05/14/24 Rx Sacubitril/Valsartan [Entresto 49 1 tab PO BID 05/14/24 05/14/24 History mg-51 mg Tablet] Allergies Allergy/AdvReac Type Severity Reaction Status Date / Time hydromorphone HCl Allergy Anaphylaxis Verified 05/14/24 15:31 [From Dilaudid] propoxyphene Allergy Rash/Hives Verified 05/14/24 15:31 [From Darvocet-N] tramadol Allergy Anaphylaxis Verified 05/14/24 15:31 ibuprofen [From Motrin] AdvReac unable to Verified 05/14/24 15:31 take due to kidney disease venom-honey bee AdvReac passes out Verified 05/14/24 15:31 [bee venom (honey bee)] Physical Exam Vitals: Vital Signs Temp Pulse Pulse Resp BP BP Pulse Ox 05/15/24 08:15 90 12 148/93 97 05/15/24 08:00 97.8 F 88 9 L 146/125 97 05/15/24 07:45 91 12 142/96 98 05/15/24 07:30 96 16 153/96 97 05/15/24 07:15 87 7 L 160/99 96 05/15/24 07:00 97 11 L 157/96 98 05/15/24 06:45 92 8 L 156/95 96 05/15/24 06:30 91 10 L 148/94 98 05/15/24 06:15 81 10 L 156/89 99 05/15/24 06:00 89 14 165/101 97 05/15/24 05:45 80 14 164/107 98 05/15/24 05:30 79 16 153/94 98 05/15/24 05:15 88 12 160/101 97 05/15/24 05:00 86 12 152/88 98 05/15/24 04:45 82 15 137/84 98 05/15/24 04:30 84 14 143/87 99 05/15/24 04:15 90 18 147/84 94 L 05/15/24 04:00 98.9 F 95 19 155/90 92 L 05/15/24 03:45 109 H 17 163/90 94 L 05/15/24 03:30 112 H 9 L 149/86 94 L 05/15/24 03:15 97 10 L 148/88 98 05/15/24 03:00 99 13 155/89 93 L 05/15/24 02:45 100 8 L 153/83 91 L 05/15/24 02:30 103 H 10 L 148/85 91 L 05/15/24 02:15 103 H 12 151/82 87 L 05/15/24 02:00 104 H 10 L 144/82 91 L 05/15/24 01:45 106 H 10 L 150/81 93 L 05/15/24 01:30 99 8 L 159/93 93 L 05/15/24 01:15 98 12 148/81 92 L 05/15/24 01:00 111 H 10 L 145/82 95 05/15/24 00:45 101 H 10 L 150/78 95 05/15/24 00:30 106 H 12 149/77 92 L 05/15/24 00:15 112 H 9 L 152/79 91 L 05/15/24 00:00 104 H 7 L 155/84 94 L 05/14/24 23:45 116 H 10 L 149/79 94 L 05/14/24 23:44 114 H 10 L 149/79 93 L 05/14/24 23:30 108 H 10 L 147/81 96 05/14/24 23:15 110 H 11 L 153/82 93 L 05/14/24 23:00 113 H 12 155/80 96 05/14/24 22:45 114 H 8 L 150/82 95 05/14/24 22:30 106 H 10 L 142/82 95 05/14/24 22:15 108 H 12 145/85 93 L 05/14/24 22:00 112 H 16 146/86 96 05/14/24 21:45 112 H 14 157/85 93 L 05/14/24 21:30 104 H 12 147/83 95 05/14/24 21:15 107 H 15 152/90 98 05/14/24 21:00 107 H 11 L 158/86 95 05/14/24 20:51 111 H 20 150/90 05/14/24 20:45 107 H 18 156/87 95 05/14/24 20:30 108 H 121 H 150/90 93 L 05/14/24 20:15 113 H 10 L 161/88 96 05/14/24 20:00 97.8 F 109 H 10 L 172/101 97 05/14/24 19:45 104 H 12 172/112 93 L 05/14/24 19:30 106 H 14 184/124 94 L 05/14/24 19:15 100 9 L 179/110 93 L 05/14/24 19:00 103 H 10 L 158/87 94 L 05/14/24 18:45 121 H 15 161/91 94 L 05/14/24 18:30 115 H 17 174/101 96 05/14/24 18:15 115 H 12 163/99 99 05/14/24 18:00 105 H 11 L 159/89 100 05/14/24 17:45 95 16 180/96 100 05/14/24 17:30 87 15 200/116 100 05/14/24 17:15 84 12 197/107 99 05/14/24 17:14 69 10 L 197/107 100 05/14/24 16:45 97.8 F 79 14 200/126 100 05/14/24 16:32 78 20 180/105 99 05/14/24 14:35 05/14/24 14:15 79 16 229/126 99 05/14/24 11:57 05/14/24 11:56 05/14/24 11:45 215/138 97 05/14/24 11:15 72 L 05/14/24 10:26 97.7 F 92 16 191/131 92 L FiO2 05/15/24 08:15 05/15/24 08:00 05/15/24 07:45 05/15/24 07:30 05/15/24 07:15 05/15/24 07:00 05/15/24 06:45 05/15/24 06:30 05/15/24 06:15 05/15/24 06:00 05/15/24 05:45 05/15/24 05:30 05/15/24 05:15 05/15/24 05:00 05/15/24 04:45 05/15/24 04:30 05/15/24 04:15 05/15/24 04:00 05/15/24 03:45 05/15/24 03:30 05/15/24 03:15 05/15/24 03:00 05/15/24 02:45 05/15/24 02:30 05/15/24 02:15 05/15/24 02:00 05/15/24 01:45 05/15/24 01:30 05/15/24 01:15 05/15/24 01:00 05/15/24 00:45 05/15/24 00:30 05/15/24 00:15 05/15/24 00:00 05/14/24 23:45 05/14/24 23:44 05/14/24 23:30 05/14/24 23:15 05/14/24 23:00 05/14/24 22:45 05/14/24 22:30 05/14/24 22:15 05/14/24 22:00 05/14/24 21:45 05/14/24 21:30 05/14/24 21:15 05/14/24 21:00 05/14/24 20:51 05/14/24 20:45 05/14/24 20:30 05/14/24 20:15 05/14/24 20:00 05/14/24 19:45 05/14/24 19:30 05/14/24 19:15 05/14/24 19:00 05/14/24 18:45 05/14/24 18:30 05/14/24 18:15 05/14/24 18:00 05/14/24 17:45 05/14/24 17:30 05/14/24 17:15 05/14/24 17:14 05/14/24 16:45 40 05/14/24 16:32 05/14/24 14:35 40 05/14/24 14:15 05/14/24 11:57 40 05/14/24 11:56 40 05/14/24 11:45 05/14/24 11:15 05/14/24 10:26 Intake and Output 05/14/24 05/15/24 05/15/24 22:59 06:59 14:59 Intake Total 552.431 246.033 79.511 Output Total 4975 35 25 Balance -4422.569 211.033 54.511 Intake: IV 60 90 10 0.9 KVO 60 90 10 Intake, IV Titration 92.431 156.033 69.511 Amount Clevidipine Butyrate 25 71.267 156.033 11.067 mg In Empty Bag 1 bag @ 1 MG/HR 2 mls/hr IV .Q24H [facility] Rx#:[id number] Insulin Regular 100 unit 18.294 58.444 In Sodium Chloride 0.9% 100 ml @ 0.1 UNITS/KG/HR 7.33 mls/hr IV .[id number] [facility] Rx#:[id number] Insulin Regular 100 unit 2.870 In Sodium Chloride 0.9% 100 ml @ Titrate IV .Q0M [facility] Rx#:[id number] Hemodialysis 400 Output: Urine 75 35 25 Hemodialysis 4900 Other: Voiding Method Indwelling Catheter Indwelling Catheter Indwelling Catheter Weight 74.8 kg 73.3 kg Results - Lab Results Most recent lab results ABG pH 7.41 (7.35-7.45) 05/14/24 14:50 ABG pCO2 49 mmHg (35-45) H 05/14/24 14:50 ABG pO2 152 mmHg (83-108) H 05/14/24 14:50 ABG HCO3 31 mmol/L (21-25) H 05/14/24 14:50 ABG O2 Saturation 100.1 % (94-97) H 05/14/24 14:50 Calcium 9.5 mg/dL (8.4-10.2) 05/15/24 05:18 Phosphorus 4.2 mg/dL (2.5-4.5) 05/14/24 15:57 05/15/24 05:18 05/15/24 05:18 Assessment and Plan Plan: Assessment: 1. End-stage renal disease maintained on hemodialysis on Wednesday. 2. Acute hypoxic respiratory failure secondary to volume overload. 3. Hypertensive emergency with pulmonary edema. Improved. 4. Diabetes mellitus. 5. Anemia of chronic kidney disease. 6. Chronic kidney disease mineral bone disease maintained on Renvela. Plan: Currently seen while undergoing hemodialysis. Challenge ultrafiltration. Blood glucose control. Advised patient multiple times to maintain low-salt diet and fluid restriction of less than 50 ounces per day. Check iron studies. Case discussed with office support. Thank you for the consultation. I will continue to follow the patient with you during her hospital stay.
[2024-05-15 11:38] LABS: Glucose,Whole Blood 119 mg/dL (70-110)
[2024-05-15 15:37] LABS: % Iron Saturation 31.97 (12.00-45.00)
[2024-05-15 16:09] LABS: Glucose,Whole Blood 357 mg/dL (70-110)
[2024-05-15 16:09] LABS: Glucose,Whole Blood >600 mg/dL (70-110)
[2024-05-15 19:42] LABS: Glucose,Whole Blood 196 mg/dL (70-110)
[2024-05-15] MEDS ORDERED: NIFEdipine 10 MG CAP PO SCH (21:00)
[2024-05-16 02:14] LABS: Glucose,Whole Blood 90 mg/dL (70-110)
[2024-05-16 04:03] LABS: Glucose,Whole Blood 75 mg/dL (70-110)
--- NOTE | 2024-05-16 06:21 | P.PN ---
Cassandra Kirkland is a 34 years old female of past medical history of acute pulmonary edema and hypertensive emergency and acute CHF. Presents because of altered mental status with acute respiratory difficulty. Patient in respiratory distress and agitated, she has placed on BiPAP. No family members at bedside and patient is not sitting up position. She also has evidence of acute kidney injury. Sugar was elevated more than 600 on admission. Patient has worsening labs with high creatinine 4.9. CT of the brain negative for acute process. Chest x-ray showed bilateral pulmonary edema or infiltrates. EKG sinus rhythm Patient was admitted to the ICU to be started on antihypertensive drips with close monitoring of mental status and other vital functions. 05/16/2024 pt remains in the icu, she is on , she is not on resp distress , on 2 l/m of o xygen with good saturation She looks tired however less confused. Patient has Razo catheter with little urine output. Patient is oliguric Hemodialysis catheter in place and patient currently undergoing hemodialysis today. Objective - Vital Signs Vital signs: Vital Signs Temp 98.5 F 05/15/24 12:00 Pulse 97 05/15/24 14:15 Resp 16 05/15/24 14:15 BP 141/83 05/15/24 14:15 Pulse Ox 97 05/15/24 14:15 FiO2 40 05/14/24 16:45 Intake & Output 05/14/24 05/15/24 05/15/24 18:59 06:59 18:59 Intake Total 84.562 738.164 164.544 Output Total 60 4950 25 Balance 24.562 -4211.836 139.544 Weight 74.8 kg 73.3 kg 73.3 kg Intake: IV 20 130 70 0.9 KVO 20 130 70 Intake, IV Titration 64.562 208.164 94.544 Amount Clevidipine Butyrate 25 21.267 206.033 36.100 mg In Empty Bag 1 bag @ 1 MG/HR 2 mls/hr IV .Q24H [facility] Rx#:[id number] Insulin Regular 100 unit 42.556 58.444 In Sodium Chloride 0.9% 100 ml @ 0.1 UNITS/KG/HR 7.33 mls/hr IV .[id number] [facility] Rx#:[id number] Insulin Regular 100 unit 0.739 2.131 In Sodium Chloride 0.9% 100 ml @ Titrate IV .Q0M [facility] Rx#:[id number] Hemodialysis 400 Output: Urine 60 50 25 Hemodialysis 4900 Other: Voiding Method Indwelling Catheter Indwelling Catheter - Exam -GENERAL: The patient is alert and oriented x3, mildly confused, not in any acute distress. Well developed, well nourished. HEENT: Pupils are round and equally reacting to light. EOMI. No scleral icterus. No conjunctival pallor. Normocephalic, atraumatic. No pharyngeal erythema. No thyromegaly. CARDIOVASCULAR: S1 and S2 present. No murmurs, rubs, or gallops. PULMONARY: Chest is clear to auscultation, no wheezing , no crackles. ABDOMEN: Soft, nontender, nondistended, normoactive bowel sounds. No palpable organomegaly. MUSCULOSKELETAL: No joint swelling or deformity. -EXTREMITIES: No cyanosis, clubbing. Bilateral pitting leg l edema. NEUROLOGICAL: Gross neurological examination did not reveal any focal deficits. SKIN: No rashes. no petechiae. - Labs CBC & Chem 7: 05/15/24 05:18 05/15/24 05:18 Labs: Abnormal Lab Results - Last 24 Hours (Table) 05/14/24 05/14/24 05/14/24 Range/Units 10:40 15:57 16:46 WBC (3.8-10.6) k/uL RBC (3.80-5.40) m/uL Hgb (11.4-16.0) gm/dL Hct (34.0-46.0) % MCV (80.0-100.0) fL RDW (11.5-15.5) % Neutrophils # (1.3-7.7) k/uL Eosinophils # (0-0.7) k/uL Sodium 136 L (137-145) mmol/L Chloride 95 L (98-107) mmol/L BUN 42 H (7-17) mg/dL Creatinine 5.61 H (0.52-1.04) mg/dL Glucose 326 H (74-99) mg/dL POC Glucose (mg/dL) 261 H (70-110) mg/dL Hemoglobin A1c 7.8 H (<=6.0) % Transferrin (204.0-354.0) mg/dL Ferritin (10.0-291.0) ng/mL 06/30/24 06/30/24 06/30/24 Range/Units 17:41 20:59 21:56 WBC (3.8-10.6) k/uL RBC (3.80-5.40) m/uL Hgb (11.4-16.0) gm/dL Hct (34.0-46.0) % MCV (80.0-100.0) fL RDW (11.5-15.5) % Neutrophils # (1.3-7.7) k/uL Eosinophils # (0-0.7) k/uL Sodium (137-145) mmol/L Chloride (98-107) mmol/L BUN (7-17) mg/dL Creatinine (0.52-1.04) mg/dL Glucose (74-99) mg/dL POC Glucose (mg/dL) 169 H 121 H 151 H (70-110) mg/dL Hemoglobin A1c (<=6.0) % Transferrin (204.0-354.0) mg/dL Ferritin (10.0-291.0) ng/mL 05/14/24 05/15/24 05/15/24 Range/Units 23:16 02:56 05:18 WBC 11.0 H (3.8-10.6) k/uL RBC 2.59 L (3.80-5.40) m/uL Hgb 8.6 L (11.4-16.0) gm/dL Hct 26.7 L (34.0-46.0) % MCV 103.1 H (80.0-100.0) fL RDW 19.3 H (11.5-15.5) % Neutrophils # 7.9 H (1.3-7.7) k/uL Eosinophils # 0.9 H (0-0.7) k/uL Sodium (137-145) mmol/L Chloride (98-107) mmol/L BUN (7-17) mg/dL Creatinine (0.52-1.04) mg/dL Glucose (74-99) mg/dL POC Glucose (mg/dL) 251 H 127 H (70-110) mg/dL Hemoglobin A1c (<=6.0) % Transferrin (204.0-354.0) mg/dL Ferritin (10.0-291.0) ng/mL 05/15/24 05/15/24 05/15/24 Range/Units 05:18 05:18 05:59 WBC (3.8-10.6) k/uL RBC (3.80-5.40) m/uL Hgb (11.4-16.0) gm/dL Hct (34.0-46.0) % MCV (80.0-100.0) fL RDW (11.5-15.5) % Neutrophils # (1.3-7.7) k/uL Eosinophils # (0-0.7) k/uL Sodium 134 L (137-145) mmol/L Chloride 96 L (98-107) mmol/L BUN 21 H (7-17) mg/dL Creatinine 3.75 H (0.52-1.04) mg/dL Glucose 62 L (74-99) mg/dL POC Glucose (mg/dL) 63 L (70-110) mg/dL Hemoglobin A1c (<=6.0) % Transferrin 174.0 L (204.0-354.0) mg/dL Ferritin 601.0 H (10.0-291.0) ng/mL 05/15/24 05/15/24 05/15/24 Range/Units 06:15 06:29 08:24 WBC (3.8-10.6) k/uL RBC (3.80-5.40) m/uL Hgb (11.4-16.0) gm/dL Hct (34.0-46.0) % MCV (80.0-100.0) fL RDW (11.5-15.5) % Neutrophils # (1.3-7.7) k/uL Eosinophils # (0-0.7) k/uL Sodium (137-145) mmol/L Chloride (98-107) mmol/L BUN (7-17) mg/dL Creatinine (0.52-1.04) mg/dL Glucose (74-99) mg/dL POC Glucose (mg/dL) 58 L 147 H 133 H (70-110) mg/dL Hemoglobin A1c (<=6.0) % Transferrin (204.0-354.0) mg/dL Ferritin (10.0-291.0) ng/mL 05/15/24 05/15/24 05/15/24 Range/Units 11:37 16:07 16:08 WBC (3.8-10.6) k/uL RBC (3.80-5.40) m/uL Hgb (11.4-16.0) gm/dL Hct (34.0-46.0) % MCV (80.0-100.0) fL RDW (11.5-15.5) % Neutrophils # (1.3-7.7) k/uL Eosinophils # (0-0.7) k/uL Sodium (137-145) mmol/L Chloride (98-107) mmol/L BUN (7-17) mg/dL Creatinine (0.52-1.04) mg/dL Glucose (74-99) mg/dL POC Glucose (mg/dL) 119 H >600 H* 357 H (70-110) mg/dL Hemoglobin A1c (<=6.0) % Transferrin (204.0-354.0) mg/dL Ferritin (10.0-291.0) ng/mL Assessment and Plan Assessment: Metabolic encephalopathy Hypertensive emergency Acute pulmonary edema End-stage kidney disease on hemodialysis 4 times a week. Diabetic ketoacidosis Anemia, chronic Plan: Continue close monitoring in the ICU Needs close monitoring of her blood pressure patient currently on clevidipine Continue insulin with close monitoring of glucose Pulmonary/critical care team on the case Continue with hemodialysis per nephrology team who are on consult GI prophylaxis on Protonix DVT prophylaxis Prognosis is guarded
[2024-05-16 06:24] LABS: Glucose,Whole Blood 104 mg/dL (70-110)
[2024-05-16 06:28] LABS: Anisocytosis Slight; Basophils # (A) 0.1 k/uL (0-0.2); Basophils % (A) 1 %; Eosinophils # (A) 1.7 k/uL (0-0.7); Eosinophils % (A) 14 %; HGB 9.7 gm/dL (11.4-16.0); Lymphocytes # (A) 1.4 k/uL (1.0-4.8); Lymphocytes % (A) 12 %; MCH 33.4 pg (25.0-35.0); MCHC 32.4 g/dL (31.0-37.0); Macrocytosis Moderate; Mean Platelet Volume 8.3; Monocytes # (A) 0.7 k/uL (0-1.0); Monocytes % (A) 6 %; Neutrophils # (A) 8.1 k/uL (1.3-7.7); Neutrophils % (A) 67 %; Platelet Count 359 k/uL (150-450); RBC 2.92 m/uL (3.80-5.40); RDW 19.9 % (11.5-15.5); WBC 12.2 k/uL (3.8-10.6)
[2024-05-16 06:37] LABS: African American GFR (CKD) 18 (>60 ml/min/1.73 sqM); Anion Gap 7 mmol/L; Blood Urea Nitrogen 15 mg/dL (7-17); Calcium 9.4 mg/dL (8.4-10.2); Carbon Dioxide 30 mmol/L (22-30); Chloride 99 mmol/L (98-107); Glucose 85 mg/dL (74-99); Non-African American GFR(CKD) 16 (>60 ml/min/1.73 sqM); Potassium 4.3 mmol/L (3.5-5.1); Sodium 136 mmol/L (137-145)
[2024-05-16] MEDS: PANTOPRAZOLE 40 MG/10 ML VIAL IVP SCH (08:01)
--- NOTE | 2024-05-16 09:15 | CDI ---
Documentation Clarification Form Date: 05/16/2024 08:41:00 AM From: Dinora Mckee RN CCDS Phone: [phone] Admit Date: 05/14/2024 03:39:00 PM Patient Name: Marita Perrin Visit Number: [id number] Discharge Date: ATTENTION: The Clinical Documentation Specialists (CDI) and [facility] Coding Staff appreciate your assistance in clarifying documentation. Please respond to the clarification below the line at the bottom and electronically sign. The CDI & [facility] Coding staff will review the response and follow-up if needed. Please note: Queries are made part of the Legal Health Record. If you have any questions, please contact the author of this message via ITS. Dr. Berry E Sheet Your patient has the documented diagnosis of unspecified CHF 05/14, [place]. Additional information regarding the type of CHF is requested. History/Risk Factors: 34 year old female presents to the ED for altered mental status and difficulty breathing. Medical History: ESRD, DM2, HTN and Thyroid disease. 05/14, [place]. Clinical Indicators: VS/Pulse OX 05/14: B/P 191/131; HR 92; Temp 97.7F Oral; RR 16; SpO2 92% 3Lnc BNP, 05/14: [id number] Echocardiogram Results: 02/06/2024: EF 55-60% Chest X Ray 05/14/2024: Bilateral diffuse pulmonary edema shows slight interval improvement Treatment: Hemodialysis; Coreg BID In your professional opinion, can you please clarify the type of CHF if known? [ x ] Acute Diastolic Heart Failure (preserved EF) [ ] Other, please specify [ ] Unable to determine (Template Last Revised: December 2020) MTDD
--- NOTE | 2024-05-16 09:56 | P.PN ---
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 She presented to the emergency department on 05/14/2024 with altered mental status. She is well-known to the hospital for uncontrolled diabetes and pulmonary edema. On glucometer, glucose was greater than 600. ABG done PaO2 PCo2 49 pH 7.41. Blood pressure was 191/131. She was admitted to the floor, given clevidipine 25mg IV, Insulin Reg IV, and emergent hemodialysis (4.5L ultrafiltration). CXR showed pulmonary edema and she was placed on BiPAP FiO2 40% 10/20. She was admitted to the ICU because of persistent elevated blood pressure. Currently, she is alert and oriented, but complains of pain and leg swelling. BP still at 160s/100s. Clevidipine drip still ongoing. On clonidine, hydralazine, nicardipine, nitrites, and carvedilol. Gluc 119. Insulin drip switched to SQ. Objective - Vital Signs Vital signs: Vital Signs Temp 98.5 F 05/15/24 12:00 Pulse 92 05/15/24 12:00 Resp 8 L 05/15/24 12:00 BP 130/80 05/15/24 12:00 Pulse Ox 99 05/15/24 12:00 FiO2 40 05/14/24 16:45 Intake & Output 05/14/24 05/15/24 05/15/24 18:59 06:59 18:59 Intake Total 84.562 738.164 120.011 Output Total 60 4950 25 Balance 24.562 -4211.836 95.011 Weight 74.8 kg 73.3 kg 73.3 kg Intake: IV 20 130 50 0.9 KVO 20 130 50 Intake, IV Titration 64.562 208.164 70.011 Amount Clevidipine Butyrate 25 21.267 206.033 11.567 mg In Empty Bag 1 bag @ 1 MG/HR 2 mls/hr IV .Q24H [facility] Rx#:[id number] Insulin Regular 100 unit 42.556 58.444 In Sodium Chloride 0.9% 100 ml @ 0.1 UNITS/KG/HR 7.33 mls/hr IV .[id number] [facility] Rx#:[id number] Insulin Regular 100 unit 0.739 2.131 In Sodium Chloride 0.9% 100 ml @ Titrate IV .Q0M [facility] Rx#:[id number] Hemodialysis 400 Output: Urine 60 50 25 Hemodialysis 4900 Other: Voiding Method Indwelling Catheter Indwelling Catheter - Constitutional General appearance: Present: cooperative, no acute distress - EENT Eyes: Present: normal appearance ENT: Present: hearing grossly normal Ears: bilateral: normal - Neck Neck: Present: normal ROM Carotids: bilateral: upstroke normal, negative: bruit absent, bruit present Thyroid: bilateral: normal size - Respiratory Respiratory: right: diminished, dullness, negative: rales, rhonchi, wheezing, prolonged expiration, prolonged inspiration - Cardiovascular Rhythm: regular Heart sounds: normal: S1, S2 Abnormal Heart Sounds: Absent: systolic murmur, diastolic murmur, rub, S3 Gallop, S4 Gallop, click, other - Gastrointestinal General gastrointestinal: Present: normal bowel sounds, soft - Integumentary Integumentary: Present: pale - Neurologic Neurologic: Present: CNII-XII intact - Musculoskeletal Musculoskeletal Comment(s): bilateral shoulder and knee and ankle pain - stabbing still at 8-9/10 - Psychiatric Psychiatric: Present: A&O x's 3 - Labs CBC & Chem 7: 05/15/24 05:18 05/15/24 05:18 Labs: Abnormal Lab Results - Last 24 Hours (Table) 05/14/24 05/14/24 05/14/24 Range/Units 10:40 12:33 12:33 WBC (3.8-10.6) k/uL RBC (3.80-5.40) m/uL Hgb (11.4-16.0) gm/dL Hct (34.0-46.0) % MCV (80.0-100.0) fL RDW (11.5-15.5) % Neutrophils # (1.3-7.7) k/uL Eosinophils # (0-0.7) k/uL ABG pCO2 (35-45) mmHg ABG pO2 (83-108) mmHg ABG HCO3 (21-25) mmol/L ABG Total CO2 (19-24) mmol/L ABG O2 Saturation (94-97) % Sodium 130 L (137-145) mmol/L Potassium 5.4 H (3.5-5.1) mmol/L Chloride 92 L (98-107) mmol/L BUN 41 H (7-17) mg/dL Creatinine 4.93 H (0.52-1.04) mg/dL Glucose 665 H* (74-99) mg/dL POC Glucose (mg/dL) (70-110) mg/dL Hemoglobin A1c 7.8 H (<=6.0) % Phosphorus 4.8 H (2.5-4.5) mg/dL Urine pH (5.0-8.0) Urine Protein (Negative) Urine Glucose (UA) (Negative) Urine Ketones (Negative) Urine Blood (Negative) Urine RBC (0-5) /hpf Urine Bacteria (None) /hpf Hyaline Casts (0-2) /lpf Urine Mucus (None) /hpf Urine Opiates Screen (NotDetected) Ur Barbiturates Screen (NotDetected) U Marijuana (THC) Screen (NotDetected) 05/14/24 05/14/24 05/14/24 Range/Units 13:47 13:50 14:41 WBC (3.8-10.6) k/uL RBC (3.80-5.40) m/uL Hgb (11.4-16.0) gm/dL Hct (34.0-46.0) % MCV (80.0-100.0) fL RDW (11.5-15.5) % Neutrophils # (1.3-7.7) k/uL Eosinophils # (0-0.7) k/uL ABG pCO2 (35-45) mmHg ABG pO2 (83-108) mmHg ABG HCO3 (21-25) mmol/L ABG Total CO2 (19-24) mmol/L ABG O2 Saturation (94-97) % Sodium (137-145) mmol/L Potassium (3.5-5.1) mmol/L Chloride (98-107) mmol/L BUN (7-17) mg/dL Creatinine (0.52-1.04) mg/dL Glucose (74-99) mg/dL POC Glucose (mg/dL) 542 H* 463 H (70-110) mg/dL Hemoglobin A1c (<=6.0) % Phosphorus (2.5-4.5) mg/dL Urine pH 8.5 H (5.0-8.0) Urine Protein 3+ H (Negative) Urine Glucose (UA) 4+ H (Negative) Urine Ketones Trace H (Negative) Urine Blood Trace H (Negative) Urine RBC 8 H (0-5) /hpf Urine Bacteria Rare H (None) /hpf Hyaline Casts 7 H (0-2) /lpf Urine Mucus Rare H (None) /hpf Urine Opiates Screen Detected H (NotDetected) Ur Barbiturates Screen Detected H (NotDetected) U Marijuana (THC) Screen Detected H (NotDetected) 05/14/24 05/14/24 05/14/24 Range/Units 14:50 15:44 15:57 WBC (3.8-10.6) k/uL RBC (3.80-5.40) m/uL Hgb (11.4-16.0) gm/dL Hct (34.0-46.0) % MCV (80.0-100.0) fL RDW (11.5-15.5) % Neutrophils # (1.3-7.7) k/uL Eosinophils # (0-0.7) k/uL ABG pCO2 49 H (35-45) mmHg ABG pO2 152 H (83-108) mmHg ABG HCO3 31 H (21-25) mmol/L ABG Total CO2 33 H (19-24) mmol/L ABG O2 Saturation 100.1 H (94-97) % Sodium 136 L (137-145) mmol/L Potassium (3.5-5.1) mmol/L Chloride 95 L (98-107) mmol/L BUN 42 H (7-17) mg/dL Creatinine 5.61 H (0.52-1.04) mg/dL Glucose 326 H (74-99) mg/dL POC Glucose (mg/dL) 383 H (70-110) mg/dL Hemoglobin A1c (<=6.0) % Phosphorus (2.5-4.5) mg/dL Urine pH (5.0-8.0) Urine Protein (Negative) Urine Glucose (UA) (Negative) Urine Ketones (Negative) Urine Blood (Negative) Urine RBC (0-5) /hpf Urine Bacteria (None) /hpf Hyaline Casts (0-2) /lpf Urine Mucus (None) /hpf Urine Opiates Screen (NotDetected) Ur Barbiturates Screen (NotDetected) U Marijuana (THC) Screen (NotDetected) 05/14/24 05/14/24 05/14/24 Range/Units 16:46 17:41 20:59 WBC (3.8-10.6) k/uL RBC (3.80-5.40) m/uL Hgb (11.4-16.0) gm/dL Hct (34.0-46.0) % MCV (80.0-100.0) fL RDW (11.5-15.5) % Neutrophils # (1.3-7.7) k/uL Eosinophils # (0-0.7) k/uL ABG pCO2 (35-45) mmHg ABG pO2 (83-108) mmHg ABG HCO3 (21-25) mmol/L ABG Total CO2 (19-24) mmol/L ABG O2 Saturation (94-97) % Sodium (137-145) mmol/L Potassium (3.5-5.1) mmol/L Chloride (98-107) mmol/L BUN (7-17) mg/dL Creatinine (0.52-1.04) mg/dL Glucose (74-99) mg/dL POC Glucose (mg/dL) 261 H 169 H 121 H (70-110) mg/dL Hemoglobin A1c (<=6.0) % Phosphorus (2.5-4.5) mg/dL Urine pH (5.0-8.0) Urine Protein (Negative) Urine Glucose (UA) (Negative) Urine Ketones (Negative) Urine Blood (Negative) Urine RBC (0-5) /hpf Urine Bacteria (None) /hpf Hyaline Casts (0-2) /lpf Urine Mucus (None) /hpf Urine Opiates Screen (NotDetected) Ur Barbiturates Screen (NotDetected) U Marijuana (THC) Screen (NotDetected) 05/14/24 05/14/24 05/15/24 Range/Units 21:56 23:16 02:56 WBC (3.8-10.6) k/uL RBC (3.80-5.40) m/uL Hgb (11.4-16.0) gm/dL Hct (34.0-46.0) % MCV (80.0-100.0) fL RDW (11.5-15.5) % Neutrophils # (1.3-7.7) k/uL Eosinophils # (0-0.7) k/uL ABG pCO2 (35-45) mmHg ABG pO2 (83-108) mmHg ABG HCO3 (21-25) mmol/L ABG Total CO2 (19-24) mmol/L ABG O2 Saturation (94-97) % Sodium (137-145) mmol/L Potassium (3.5-5.1) mmol/L Chloride (98-107) mmol/L BUN (7-17) mg/dL Creatinine (0.52-1.04) mg/dL Glucose (74-99) mg/dL POC Glucose (mg/dL) 151 H 251 H 127 H (70-110) mg/dL Hemoglobin A1c (<=6.0) % Phosphorus (2.5-4.5) mg/dL Urine pH (5.0-8.0) Urine Protein (Negative) Urine Glucose (UA) (Negative) Urine Ketones (Negative) Urine Blood (Negative) Urine RBC (0-5) /hpf Urine Bacteria (None) /hpf Hyaline Casts (0-2) /lpf Urine Mucus (None) /hpf Urine Opiates Screen (NotDetected) Ur Barbiturates Screen (NotDetected) U Marijuana (THC) Screen (NotDetected) 05/15/24 05/15/24 05/15/24 Range/Units 05:18 05:18 05:59 WBC 11.0 H (3.8-10.6) k/uL RBC 2.59 L (3.80-5.40) m/uL Hgb 8.6 L (11.4-16.0) gm/dL Hct 26.7 L (34.0-46.0) % MCV 103.1 H (80.0-100.0) fL RDW 19.3 H (11.5-15.5) % Neutrophils # 7.9 H (1.3-7.7) k/uL Eosinophils # 0.9 H (0-0.7) k/uL ABG pCO2 (35-45) mmHg ABG pO2 (83-108) mmHg ABG HCO3 (21-25) mmol/L ABG Total CO2 (19-24) mmol/L ABG O2 Saturation (94-97) % Sodium 134 L (137-145) mmol/L Potassium (3.5-5.1) mmol/L Chloride 96 L (98-107) mmol/L BUN 21 H (7-17) mg/dL Creatinine 3.75 H (0.52-1.04) mg/dL Glucose 62 L (74-99) mg/dL POC Glucose (mg/dL) 63 L (70-110) mg/dL Hemoglobin A1c (<=6.0) % Phosphorus (2.5-4.5) mg/dL Urine pH (5.0-8.0) Urine Protein (Negative) Urine Glucose (UA) (Negative) Urine Ketones (Negative) Urine Blood (Negative) Urine RBC (0-5) /hpf Urine Bacteria (None) /hpf Hyaline Casts (0-2) /lpf Urine Mucus (None) /hpf Urine Opiates Screen (NotDetected) Ur Barbiturates Screen (NotDetected) U Marijuana (THC) Screen (NotDetected) 05/15/24 05/15/24 05/15/24 Range/Units 06:15 06:29 08:24 WBC (3.8-10.6) k/uL RBC (3.80-5.40) m/uL Hgb (11.4-16.0) gm/dL Hct (34.0-46.0) % MCV (80.0-100.0) fL RDW (11.5-15.5) % Neutrophils # (1.3-7.7) k/uL Eosinophils # (0-0.7) k/uL ABG pCO2 (35-45) mmHg ABG pO2 (83-108) mmHg ABG HCO3 (21-25) mmol/L ABG Total CO2 (19-24) mmol/L ABG O2 Saturation (94-97) % Sodium (137-145) mmol/L Potassium (3.5-5.1) mmol/L Chloride (98-107) mmol/L BUN (7-17) mg/dL Creatinine (0.52-1.04) mg/dL Glucose (74-99) mg/dL POC Glucose (mg/dL) 58 L 147 H 133 H (70-110) mg/dL Hemoglobin A1c (<=6.0) % Phosphorus (2.5-4.5) mg/dL Urine pH (5.0-8.0) Urine Protein (Negative) Urine Glucose (UA) (Negative) Urine Ketones (Negative) Urine Blood (Negative) Urine RBC (0-5) /hpf Urine Bacteria (None) /hpf Hyaline Casts (0-2) /lpf Urine Mucus (None) /hpf Urine Opiates Screen (NotDetected) Ur Barbiturates Screen (NotDetected) U Marijuana (THC) Screen (NotDetected) 05/15/24 Range/Units 11:37 WBC (3.8-10.6) k/uL RBC (3.80-5.40) m/uL Hgb (11.4-16.0) gm/dL Hct (34.0-46.0) % MCV (80.0-100.0) fL RDW (11.5-15.5) % Neutrophils # (1.3-7.7) k/uL Eosinophils # (0-0.7) k/uL ABG pCO2 (35-45) mmHg ABG pO2 (83-108) mmHg ABG HCO3 (21-25) mmol/L ABG Total CO2 (19-24) mmol/L ABG O2 Saturation (94-97) % Sodium (137-145) mmol/L Potassium (3.5-5.1) mmol/L Chloride (98-107) mmol/L BUN (7-17) mg/dL Creatinine (0.52-1.04) mg/dL Glucose (74-99) mg/dL POC Glucose (mg/dL) 119 H (70-110) mg/dL Hemoglobin A1c (<=6.0) % Phosphorus (2.5-4.5) mg/dL Urine pH (5.0-8.0) Urine Protein (Negative) Urine Glucose (UA) (Negative) Urine Ketones (Negative) Urine Blood (Negative) Urine RBC (0-5) /hpf Urine Bacteria (None) /hpf Hyaline Casts (0-2) /lpf Urine Mucus (None) /hpf Urine Opiates Screen (NotDetected) Ur Barbiturates Screen (NotDetected) U Marijuana (THC) Screen (NotDetected) - Imaging and Cardiology Chest x-ray: report reviewed (pulmonary edema improving) CT Scan - head: report reviewed (no abnormalities) Assessment and Plan Assessment: Acute pulmonary edema, resolving ESRD secondary to diabetic nephropathy on hemodialysis 4x a week Hypertensive emergency, resolving Plan: hemodialysis today goal of 3L discontinue insulin IV Switch to Insulin SQ titrate clevidipine switch to nifedipine 60mg PO extended release Continue acetaminophen PRN Continue Morphine PRN Continue carvedilol, Hydralazine, clonidine nitrites, sevalamer Time with Patient: Less than 30
[2024-05-16] MEDS: HYDROcodone/APAP 5-325MG 1 EACH TAB PO STA (09:59)
[2024-05-16] MEDS: hydrALAZINE HCL 25 MG TAB PO SCH (10:00)
--- NOTE | 2024-05-16 10:04 | P.PN ---
Cassandra Kirkland is a 34 years old female of past medical history of acute pulmonary edema and hypertensive emergency and acute CHF. Presents because of altered mental status with acute respiratory difficulty. Patient in respiratory distress and agitated, she has placed on BiPAP. No family members at bedside and patient is not sitting up position. She also has evidence of acute kidney injury. Sugar was elevated more than 600 on admission. Patient has worsening labs with high creatinine 4.9. CT of the brain negative for acute process. Chest x-ray showed bilateral pulmonary edema or infiltrates. EKG sinus rhythm Patient was admitted to the ICU to be started on antihypertensive drips with close monitoring of mental status and other vital functions. 05/16/2024 pt remains in the icu, she is on , she is not on resp distress , on 2 l/m of o xygen with good saturation She looks tired however less confused. Patient has Razo catheter with little urine output. Patient is oliguric Hemodialysis catheter in place and patient currently undergoing hemodialysis today. 05/16/24 Patient awake looks tired Her blood pressure controlled with oral medication, antihypertensive drip was stopped and systolic blood pressure is Below 160 on hydralazine 25 mg, clonidine 0.1 mg and nifedipine 60 mg twice daily Patient is getting another hemodialysis today where 3.5 L will be taken out. Patient herself is awake and alert but she feels pain all over using Tylenol recommend to give one-time dose of [place]. Objective - Vital Signs Vital signs: Vital Signs Temp 97.9 F 05/16/24 08:00 Pulse 86 05/16/24 09:30 Resp 13 05/16/24 09:30 BP 156/90 05/16/24 09:30 Pulse Ox 99 05/16/24 09:30 FiO2 40 05/14/24 16:45 Intake & Output 05/15/24 05/16/24 05/16/24 18:59 06:59 18:59 Intake Total 718.778 162.067 20 Output Total 3550 115 20 Balance -2831.222 47.067 0 Weight 73.3 kg 66.5 kg Intake: IV 110 130 20 0.9 KVO 110 130 20 Intake, IV Titration 108.778 32.067 Amount Clevidipine Butyrate 25 50.334 32.067 mg In Empty Bag 1 bag @ 1 MG/HR 2 mls/hr IV .Q24H [facility] Rx#:[id number] Insulin Regular 100 unit 58.444 In Sodium Chloride 0.9% 100 ml @ 0.1 UNITS/KG/HR 7.33 mls/hr IV .[id number] [facility] Rx#:[id number] Hemodialysis 500 Output: Urine 50 115 20 Hemodialysis 3500 Other: Voiding Method Indwelling Catheter Indwelling Catheter Indwelling Catheter - Exam -GENERAL: The patient is alert and oriented x3, mildly confused, not in any acute distress. Well developed, well nourished. HEENT: Pupils are round and equally reacting to light. EOMI. No scleral icterus. No conjunctival pallor. Normocephalic, atraumatic. No pharyngeal erythema. No thyromegaly. CARDIOVASCULAR: S1 and S2 present. No murmurs, rubs, or gallops. PULMONARY: Chest is clear to auscultation, no wheezing , no crackles. ABDOMEN: Soft, nontender, nondistended, normoactive bowel sounds. No palpable organomegaly. MUSCULOSKELETAL: No joint swelling or deformity. -EXTREMITIES: No cyanosis, clubbing. Bilateral pitting leg l edema. NEUROLOGICAL: Gross neurological examination did not reveal any focal deficits. SKIN: No rashes. no petechiae. - Labs CBC & Chem 7: 05/16/24 05:42 05/16/24 05:42 Labs: Abnormal Lab Results - Last 24 Hours (Table) 05/15/24 05/15/24 05/15/24 Range/Units 05:18 11:37 16:07 WBC (3.8-10.6) k/uL RBC (3.80-5.40) m/uL Hgb (11.4-16.0) gm/dL Hct (34.0-46.0) % MCV (80.0-100.0) fL RDW (11.5-15.5) % Neutrophils # (1.3-7.7) k/uL Eosinophils # (0-0.7) k/uL Sodium (137-145) mmol/L Creatinine (0.52-1.04) mg/dL POC Glucose (mg/dL) 119 H >600 H* (70-110) mg/dL Transferrin 174.0 L (204.0-354.0) mg/dL Ferritin 601.0 H (10.0-291.0) ng/mL 05/15/24 05/15/24 05/16/24 Range/Units 16:08 19:41 05:42 WBC 12.2 H (3.8-10.6) k/uL RBC 2.92 L (3.80-5.40) m/uL Hgb 9.7 L (11.4-16.0) gm/dL Hct 30.0 L (34.0-46.0) % MCV 103.0 H (80.0-100.0) fL RDW 19.9 H (11.5-15.5) % Neutrophils # 8.1 H (1.3-7.7) k/uL Eosinophils # 1.7 H (0-0.7) k/uL Sodium (137-145) mmol/L Creatinine (0.52-1.04) mg/dL POC Glucose (mg/dL) 357 H 196 H (70-110) mg/dL Transferrin (204.0-354.0) mg/dL Ferritin (10.0-291.0) ng/mL 05/16/24 Range/Units 05:42 WBC (3.8-10.6) k/uL RBC (3.80-5.40) m/uL Hgb (11.4-16.0) gm/dL Hct (34.0-46.0) % MCV (80.0-100.0) fL RDW (11.5-15.5) % Neutrophils # (1.3-7.7) k/uL Eosinophils # (0-0.7) k/uL Sodium 136 L (137-145) mmol/L Creatinine 3.60 H (0.52-1.04) mg/dL POC Glucose (mg/dL) (70-110) mg/dL Transferrin (204.0-354.0) mg/dL Ferritin (10.0-291.0) ng/mL Assessment and Plan Assessment: Metabolic encephalopathy Hypertensive emergency Acute pulmonary edema End-stage kidney disease on hemodialysis 4 times a week. Diabetic ketoacidosis Anemia, chronic Plan: Continue close monitoring in the ICU Continue with antihypertensive medication of hydralazine, clonidine and nifedipine Continue insulin with close monitoring of glucose Pulmonary/critical care team on the case Continue with hemodialysis per nephrology team who are on consult GI prophylaxis on Protonix DVT prophylaxis Prognosis is guarded
--- NOTE | 2024-05-16 11:40 | P.PN ---
Subjective Progress Note Date: 05/16/24 Patient is being followed for end-stage renal disease. She is maintained on hemodialysis on Wednesday, Wednesday, , and Wednesday. She states that she is not feeling well today. She states that she has not eating or drinking, only drinking while taking her medications. Patient was seen while receiving dialysis. Vital signs are stable. General: No acute distress. Lungs: No rhonchi, wheezes, or rales. Heart: Rate and rhythm are regular. Extremities: No edema present. Objective - Vital Signs Vital signs: Vital Signs Temp 98.2 F 05/16/24 04:00 Pulse 95 05/16/24 07:00 Resp 14 05/16/24 07:00 BP 152/90 05/16/24 07:00 Pulse Ox 96 05/16/24 07:52 FiO2 40 05/14/24 16:45 Intake & Output 05/15/24 05/16/24 05/16/24 18:59 06:59 18:59 Intake Total 718.778 162.067 Output Total 3550 115 Balance -2831.222 47.067 Weight 73.3 kg 66.5 kg Intake: IV 110 130 0.9 KVO 110 130 Intake, IV Titration 108.778 32.067 Amount Clevidipine Butyrate 25 50.334 32.067 mg In Empty Bag 1 bag @ 1 MG/HR 2 mls/hr IV .Q24H [facility] Rx#:[id number] Insulin Regular 100 unit 58.444 In Sodium Chloride 0.9% 100 ml @ 0.1 UNITS/KG/HR 7.33 mls/hr IV .[id number] [facility] Rx#:[id number] Hemodialysis 500 Output: Urine 50 115 Hemodialysis 3500 Other: Voiding Method Indwelling Catheter Indwelling Catheter - Labs CBC & Chem 7: 05/16/24 05:42 05/16/24 05:42 Labs: Abnormal Lab Results - Last 24 Hours (Table) 05/15/24 05/15/24 05/15/24 Range/Units 05:18 11:37 16:07 WBC (3.8-10.6) k/uL RBC (3.80-5.40) m/uL Hgb (11.4-16.0) gm/dL Hct (34.0-46.0) % MCV (80.0-100.0) fL RDW (11.5-15.5) % Neutrophils # (1.3-7.7) k/uL Eosinophils # (0-0.7) k/uL Sodium (137-145) mmol/L Creatinine (0.52-1.04) mg/dL POC Glucose (mg/dL) 119 H >600 H* (70-110) mg/dL Transferrin 174.0 L (204.0-354.0) mg/dL Ferritin 601.0 H (10.0-291.0) ng/mL 05/15/24 05/15/24 05/16/24 Range/Units 16:08 19:41 05:42 WBC 12.2 H (3.8-10.6) k/uL RBC 2.92 L (3.80-5.40) m/uL Hgb 9.7 L (11.4-16.0) gm/dL Hct 30.0 L (34.0-46.0) % MCV 103.0 H (80.0-100.0) fL RDW 19.9 H (11.5-15.5) % Neutrophils # 8.1 H (1.3-7.7) k/uL Eosinophils # 1.7 H (0-0.7) k/uL Sodium (137-145) mmol/L Creatinine (0.52-1.04) mg/dL POC Glucose (mg/dL) 357 H 196 H (70-110) mg/dL Transferrin (204.0-354.0) mg/dL Ferritin (10.0-291.0) ng/mL 05/16/24 Range/Units 05:42 WBC (3.8-10.6) k/uL RBC (3.80-5.40) m/uL Hgb (11.4-16.0) gm/dL Hct (34.0-46.0) % MCV (80.0-100.0) fL RDW (11.5-15.5) % Neutrophils # (1.3-7.7) k/uL Eosinophils # (0-0.7) k/uL Sodium 136 L (137-145) mmol/L Creatinine 3.60 H (0.52-1.04) mg/dL POC Glucose (mg/dL) (70-110) mg/dL Transferrin (204.0-354.0) mg/dL Ferritin (10.0-291.0) ng/mL Assessment and Plan Assessment: 1. End-stage renal disease maintained on hemodialysis on Wednesday, Wednesday, , and Wednesday. 2. Acute hypoxic respiratory failure secondary to volume overload. 3. Hypertensive emergency with pulmonary edemaimproved. 4. Diabetes mellitus. 5. Anemia of chronic kidney disease. 6. Chronic kidney disease mineral bone disease maintained on Renvela. Plan: Maintain blood glucose control. Continue to monitor renal function. Continue on dialysis 4 times per week. I saw and evaluated the patient and agree with resident's findings and plan as written. See changes below. Patient seen while undergoing HD. Iron replete. Add aranesp. Monitor volume status closely.
[2024-05-16 11:46] LABS: Glucose,Whole Blood 169 mg/dL (70-110)
[2024-05-16 11:55] VITALS: BMI 22.3
--- NOTE | 2024-05-16 11:59 | P.PN ---
Subjective Progress Note Date: 05/16/24 Patient is a 34-year-old white female with past medical history significant for uncontrolled hypertension, diabetes mellitus, end-stage renal disease (maintained on hemodialysis 4 times weekly), TIA/CVA, optic neuritis, among other things. Of note, patient has had multiple hospitalization this year for similar presentation, and she was just discharged on April 29. She returns to the emergency department afternoon with altered mental status. She was severely hyperglycemic with a initial blood glucose of 680 mg/dL. She was started on an insulin infusion which is currently paused. She was also found to be profoundly hypertensive, and started on clevidipine infusion which is currently at 13 mg/h. Chest x-ray consistent with fluid overload and pulmonary edema, patient was initially placed on BiPAP with settings 12/6 and FiO2 of 40%. ABG performed on admission showed a PaO2 of 152, pCO2 of 49, pH of 7.41. She did subsequently have emergent hemodialysis with ultrafiltration of 4.9 L earlier yesterday. She is currently in the intensive care unit. She is alert and oriented x 3 at the moment. On 3 L/min nasal cannula, in no acute respiratory distress. She states that she has been compliant with all her medications and has not missed any hemodialysis treatments. She does not remember events leading to this hospitalization. Denies any infectious-like symptoms. Denies any chest pain, heart palpitations, or syncopal events. She states that she is having severe generalized pain. She states that she normally takes [place] at home. CBC: WBC count 12.7, hemoglobin 8, hematocrit 24.6, platelets 272. CMP: Sodium 136, potassium 4.6, chloride 95, serum bicarb 29, BUN 42, creatinine 5.61, glucose 326. Hemoglobin A1c 7.8. Lactic 1.1. LFTs mildly elevated. Total bilirubin 1.1. Troponin less than 0.012. NT proBNP 55,000. Patient has an indwelling urinary catheter, without any urine and urometer, and is reportedly an uric at home. Urine toxicology screen positive for opiates, barbiturates, and marijuana. Recent available echocardiogram performed 12/27/2023 estimates a preserved left ventricular ejection fraction of 55 to 60%, mild to moderate LVH, mild mitral and tricuspid regurgitation, as well as, a small pericardial effusion. Patient is being monitored in the intensive care unit at the moment. 72,024, the patient is awake and alert, complaining of some nausea. She is currently on 2 L of oxygen by nasal cannula. Ultrafiltration and hemodialysis was done yesterday and a total of 3.5 L of fluid was removed. Another session of dialysis to be done today. Clinically stable. Hemodynamically stable. No chest pain. No shortness of breath. She is currently on 2 L of oxygen by nasal cannula. No signs of any respiratory distress. BP is under better control. The patient is off the Cleviprex drip. No other significant events otherwise. Objective - Vital Signs Vital signs: Vital Signs Temp 98.2 F 05/16/24 04:00 Pulse 95 05/16/24 07:00 Resp 14 05/16/24 07:00 BP 152/90 05/16/24 07:00 Pulse Ox 96 05/16/24 07:52 FiO2 40 05/14/24 16:45 Intake & Output 05/15/24 05/16/24 05/16/24 18:59 06:59 18:59 Intake Total 718.778 162.067 Output Total 3550 115 Balance -2831.222 47.067 Weight 73.3 kg 66.5 kg Intake: IV 110 130 0.9 KVO 110 130 Intake, IV Titration 108.778 32.067 Amount Clevidipine Butyrate 25 50.334 32.067 mg In Empty Bag 1 bag @ 1 MG/HR 2 mls/hr IV .Q24H [facility] Rx#:[id number] Insulin Regular 100 unit 58.444 In Sodium Chloride 0.9% 100 ml @ 0.1 UNITS/KG/HR 7.33 mls/hr IV .[id number] [facility] Rx#:[id number] Hemodialysis 500 Output: Urine 50 115 Hemodialysis 3500 Other: Voiding Method Indwelling Catheter Indwelling Catheter - Exam GENERAL EXAM: Alert, 34-year-old white female . The patient is currently on 30s of oxygen by nasal cannula., Comfortable. HEAD: Normocephalic and atraumatic EYES: Normal reaction of pupils, equal size. NOSE: Clear with pink turbinates. THROAT: No erythema or exudates. NECK: No masses, no JVD. CHEST: No chest wall deformity. LUNGS: Equal air entry with minimal inspiratory bibasilar crackles. On 3 L/min nasal cannula. No conversational dyspnea or accessory muscle use.. CVS: S1 and S2 normal with no audible murmur, regular rhythm. No extra heart sounds. Tachycardic on bedside monitor ABDOMEN: No hepatosplenomegaly, active bowel sounds, no guarding or rigidity. SPINE: No scoliosis or deformity SKIN: No rashes CENTRAL NERVOUS SYSTEM: Alert and oriented x 3, cranial nerves II through XII intact, mild right-sided hemiparesis, gait assessment was deferred, patellar DTRs 2+ bilaterally. EXTREMITIES: There is no peripheral edema, clubbing, or cyanosis. Peripheral pulses are intact. - Labs CBC & Chem 7: 05/16/24 05:42 05/16/24 05:42 Labs: Abnormal Lab Results - Last 24 Hours (Table) 05/15/24 05/15/24 05/15/24 Range/Units 05:18 11:37 16:07 WBC (3.8-10.6) k/uL RBC (3.80-5.40) m/uL Hgb (11.4-16.0) gm/dL Hct (34.0-46.0) % MCV (80.0-100.0) fL RDW (11.5-15.5) % Neutrophils # (1.3-7.7) k/uL Eosinophils # (0-0.7) k/uL Sodium (137-145) mmol/L Creatinine (0.52-1.04) mg/dL POC Glucose (mg/dL) 119 H >600 H* (70-110) mg/dL Transferrin 174.0 L (204.0-354.0) mg/dL Ferritin 601.0 H (10.0-291.0) ng/mL 05/15/24 05/15/24 05/16/24 Range/Units 16:08 19:41 05:42 WBC 12.2 H (3.8-10.6) k/uL RBC 2.92 L (3.80-5.40) m/uL Hgb 9.7 L (11.4-16.0) gm/dL Hct 30.0 L (34.0-46.0) % MCV 103.0 H (80.0-100.0) fL RDW 19.9 H (11.5-15.5) % Neutrophils # 8.1 H (1.3-7.7) k/uL Eosinophils # 1.7 H (0-0.7) k/uL Sodium (137-145) mmol/L Creatinine (0.52-1.04) mg/dL POC Glucose (mg/dL) 357 H 196 H (70-110) mg/dL Transferrin (204.0-354.0) mg/dL Ferritin (10.0-291.0) ng/mL 05/16/24 Range/Units 05:42 WBC (3.8-10.6) k/uL RBC (3.80-5.40) m/uL Hgb (11.4-16.0) gm/dL Hct (34.0-46.0) % MCV (80.0-100.0) fL RDW (11.5-15.5) % Neutrophils # (1.3-7.7) k/uL Eosinophils # (0-0.7) k/uL Sodium 136 L (137-145) mmol/L Creatinine 3.60 H (0.52-1.04) mg/dL POC Glucose (mg/dL) (70-110) mg/dL Transferrin (204.0-354.0) mg/dL Ferritin (10.0-291.0) ng/mL Assessment and Plan Assessment: Acute hypoxemic respiratory failure, initially requiring BiPAP, secondary to fluid overload and diffuse pulmonary edema. Status/post emergent hemodialysis x 2 initially 4.5 L and later on 3.5 L and another session of hemodialysis to be done today. Currently the patient on 2 L of oxygen by nasal cannula Hypertensive emergency, recovered Severe hyperglycemia, improved and the patient is currently on Levemir insulin Diabetes mellitus, insulin-dependent Altered mental status, possibly secondary to a component of hypertensive encephalopathy, improved End-stage renal disease, maintained on hemodialysis 4 times a week, patient denies missing any sessions of hemodialysis Anemia of chronic disease History of CVA/TIA History of optic neuritis Plan: The patient is currently on nasal cannula 2 Patient is undergoing routine hemodialysis. Another session of hemodialysis to be done today Clevidipine drip has been discontinued Continue combination of antihypertensive including nifedipine, clonidine, and Coreg. Hydralazine will be switched to oral. Patient is on Levemir insulin Zofran for nausea Heparin for DVT prophylaxis Protonix for GI prophylaxis Will continue to follow. Clinically stable. Advance diet as tolerated.
[2024-05-16] MEDS: DARBEPOETIN ALFA 40 MCG/0.4 ML SYRINGE SQ SCH (12:20)
--- NOTE | 2024-05-16 13:25 | P.PN ---
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 She presented to the emergency department on 05/14/2024 with altered mental status. She is well-known to the hospital for uncontrolled diabetes and pulmonary edema. On glucometer, glucose was greater than 600. ABG done PaO2 PCo2 49 pH 7.41. Blood pressure was 191/131. She was admitted to the floor, given clevidipine 25mg IV, Insulin Reg I V, and emergent hemodialysis (4.5L ultrafiltration). CXR showed pulmonary edema and she was placed on BiPAP FiO2 40% 10/20. She was admitted to the ICU because of persistent elevated blood pressure. Currently, she is alert and oriented, but complains of pain and leg swelling. BP still at 160s/100s. Clevidipine drip still ongoing. On clonidine, hydralazine, nicardipine, nitrites, and carvedilol. Gluc 119. Insulin drip switched to SQ. Patient has an indwelling urinary catheter and uric. 05/16 Patient had dialysis session the day prior (removed 3L), UO 1.12 ml/kg/hr. Glucose decreasing trend from range from 70-104. BP stable at 160/92. On 2L O2 via nasal cannula not in acute respiratory distress. Patient mentions low appetite, nausea and generalized stabbing pain 7-07/25. Objective - Vital Signs Vital signs: Vital Signs Temp 97.9 F 05/16/24 08:00 Pulse 86 05/16/24 09:30 Resp 13 05/16/24 09:30 BP 156/90 05/16/24 09:30 Pulse Ox 99 05/16/24 09:30 FiO2 40 05/14/24 16:45 Intake & Output 05/15/24 05/16/24 05/16/24 18:59 06:59 18:59 Intake Total 718.778 162.067 20 Output Total 3550 115 20 Balance -2831.222 47.067 0 Weight 73.3 kg 66.5 kg Intake: IV 110 130 20 0.9 KVO 110 130 20 Intake, IV Titration 108.778 32.067 Amount Clevidipine Butyrate 25 50.334 32.067 mg In Empty Bag 1 bag @ 1 MG/HR 2 mls/hr IV .Q24H [facility] Rx#:[id number] Insulin Regular 100 unit 58.444 In Sodium Chloride 0.9% 100 ml @ 0.1 UNITS/KG/HR 7.33 mls/hr IV .[id number] [facility] Rx#:[id number] Hemodialysis 500 Output: Urine 50 115 20 Hemodialysis 3500 Other: Voiding Method Indwelling Catheter Indwelling Catheter Indwelling Catheter - Constitutional General appearance: Present: cooperative, no acute distress - EENT Eyes: Present: anicteric sclerae, PERRLA, normal appearance ENT: Present: hearing grossly normal, NA/AT, normal oropharynx Ears: bilateral: normal, negative: bulging, bullous, dull, erythema, fluid - Neck Neck: Present: normal ROM Carotids: bilateral: upstroke normal, bruit absent Thyroid: bilateral: normal size - Respiratory Respiratory: negative: diminished, dullness, rales, rhonchi, wheezing, prolonged expiration, prolonged inspiration - Cardiovascular Heart rate: 100 Rhythm: regular Heart sounds: normal: S1, S2 - Gastrointestinal General gastrointestinal: Present: normal bowel sounds, soft - Integumentary Integumentary: Present: pale - Neurologic Neurologic: Present: CNII-XII intact - Musculoskeletal Musculoskeletal Comment(s): generalized pain stabbing 7-07/25 - Psychiatric Psychiatric: Present: A&O x's 3 - Additional findings Additional findings: generalized stabbing pain - Labs CBC & Chem 7: 05/16/24 05:42 05/16/24 05:42 Labs: Abnormal Lab Results - Last 24 Hours (Table) 05/15/24 05/15/24 05/15/24 Range/Units 05:18 11:37 16:07 WBC (3.8-10.6) k/uL RBC (3.80-5.40) m/uL Hgb (11.4-16.0) gm/dL Hct (34.0-46.0) % MCV (80.0-100.0) fL RDW (11.5-15.5) % Neutrophils # (1.3-7.7) k/uL Eosinophils # (0-0.7) k/uL Sodium (137-145) mmol/L Creatinine (0.52-1.04) mg/dL POC Glucose (mg/dL) 119 H >600 H* (70-110) mg/dL Transferrin 174.0 L (204.0-354.0) mg/dL Ferritin 601.0 H (10.0-291.0) ng/mL 05/15/24 05/15/24 05/16/24 Range/Units 16:08 19:41 05:42 WBC 12.2 H (3.8-10.6) k/uL RBC 2.92 L (3.80-5.40) m/uL Hgb 9.7 L (11.4-16.0) gm/dL Hct 30.0 L (34.0-46.0) % MCV 103.0 H (80.0-100.0) fL RDW 19.9 H (11.5-15.5) % Neutrophils # 8.1 H (1.3-7.7) k/uL Eosinophils # 1.7 H (0-0.7) k/uL Sodium (137-145) mmol/L Creatinine (0.52-1.04) mg/dL POC Glucose (mg/dL) 357 H 196 H (70-110) mg/dL Transferrin (204.0-354.0) mg/dL Ferritin (10.0-291.0) ng/mL 05/16/24 Range/Units 05:42 WBC (3.8-10.6) k/uL RBC (3.80-5.40) m/uL Hgb (11.4-16.0) gm/dL Hct (34.0-46.0) % MCV (80.0-100.0) fL RDW (11.5-15.5) % Neutrophils # (1.3-7.7) k/uL Eosinophils # (0-0.7) k/uL Sodium 136 L (137-145) mmol/L Creatinine 3.60 H (0.52-1.04) mg/dL POC Glucose (mg/dL) (70-110) mg/dL Transferrin (204.0-354.0) mg/dL Ferritin (10.0-291.0) ng/mL Assessment and Plan Assessment: Acute hypoxemic respiratory failure, initially requiring BiPAP, secondary to fluid overload and diffuse pulmonary edema, resolving Hypertensive urgency, resolving Severe hyperglycemia, resolving Diabetes mellitus, insulin-dependent Altered mental status, possibly secondary to a component of hypertensive encephalopathy, resolved End-stage renal disease, maintained on hemodialysis 4 times a week, status post hemodialysis 05/15 Anemia of chronic disease Plan: Continue close monitoring in the ICU Pulmonary/critical care team on the case Nephrology team consult Hemodialysis today Watch for hypoglycemia Switch Hydralazine to 25mg PO BID Give protonix and Zofran for nausea and GI precautions DVT prophylaxis Prognosis is Time with Patient: Less than 30
[2024-05-16 16:50] LABS: Glucose,Whole Blood 306 mg/dL (70-110)
[2024-05-16 20:35] LABS: Glucose,Whole Blood 236 mg/dL (70-110)
[2024-05-16] MEDS: D5-0.45% NACL WITH KCL 20MEQ/L 1,000 ML IV SCH (23:22)
[2024-05-17 01:57] LABS: Glucose,Whole Blood 107 mg/dL (70-110)
[2024-05-17 04:00] LABS: Glucose,Whole Blood 48 mg/dL (70-110)
[2024-05-17 04:16] LABS: Glucose,Whole Blood 49 mg/dL (70-110)
[2024-05-17 04:37] LABS: Glucose,Whole Blood 77 mg/dL (70-110)
[2024-05-17 07:14] LABS: Glucose,Whole Blood 98 mg/dL (70-110)
[2024-05-17] MEDS: IPRATROPIUM-ALBUTEROL 3 ML NEB INHALATION PRN (08:09)
[2024-05-17 12:34] LABS: Glucose,Whole Blood 236 mg/dL (70-110)
--- NOTE | 2024-05-17 12:46 | P.PN ---
Subjective Patient is being followed for end-stage renal disease. She is maintained on hemodialysis on Wednesday, Wednesday, , and Wednesday. Resting in bed. Tolerated 3 L ultrafiltration yesterday. On nasal cannula. Vital signs are stable. General: No acute distress. Lungs: No rhonchi, wheezes, or rales. Heart: Rate and rhythm are regular. Extremities: No edema present. Objective - Vital Signs Vital signs: Vital Signs Temp 98.1 F 05/17/24 07:14 Pulse 88 05/17/24 08:22 Resp 18 05/17/24 07:14 BP 164/94 05/17/24 07:14 Pulse Ox 99 05/17/24 08:12 FiO2 40 05/14/24 16:45 Intake & Output 05/16/24 05/17/24 05/17/24 18:59 06:59 18:59 Intake Total 850 500 Output Total 3535 0 Balance -2685 500 Weight 66.5 kg Intake: IV 110 0.9 KVO 110 Oral 240 500 Hemodialysis 500 Output: Urine 35 0 Stool 0 Hemodialysis 3500 Other: Voiding Method Indwelling Catheter Indwelling Catheter - Labs CBC & Chem 7: 05/16/24 05:42 05/17/24 07:30 Labs: Abnormal Lab Results - Last 24 Hours (Table) 05/16/24 05/16/24 05/17/24 Range/Units 16:48 20:32 03:55 POC Glucose (mg/dL) 306 H 236 H 48 L* (70-110) mg/dL 05/17/24 05/17/24 Range/Units 04:13 12:32 POC Glucose (mg/dL) 49 L* 236 H (70-110) mg/dL Assessment and Plan Assessment: 1. End-stage renal disease maintained on hemodialysis on Wednesday, Wednesday, , and Wednesday. 2. Acute hypoxic respiratory failure secondary to volume overload. Improved. Now on nasal cannula. 3. Hypertensive emergency with pulmonary edemaimproved. 4. Diabetes mellitus. 5. Anemia of chronic kidney disease. On Aranesp. 6. Chronic kidney disease mineral bone disease maintained on Renvela. Plan: Hemodialysis tomorrow. Patient is maintained on Wednesday ay schedule. Blood glucose control. Pain control. Increased dose of hydralazine to 50 mg. Advised patient to maintain low-salt diet and fluid restriction of less than 50 ounces per day.
[2024-05-17] MEDS: hydrALAZINE HCL 50 MG TAB PO SCH (12:51)
[2024-05-17 17:15] LABS: Glucose,Whole Blood 427 mg/dL (70-110)
[2024-05-17 19:52] LABS: Glucose,Whole Blood 352 mg/dL (70-110)
[2024-05-17] MEDS: INSULIN DETEMIR (LEVEMIR) 100 UNIT/ML SYR SQ SCH (21:18)
--- NOTE | 2024-05-17 23:35 | P.PN ---
Cassandra Kirkland is a 34 years old female of past medical history of acute pulmonary edema and hypertensive emergency and acute CHF. Presents because of altered mental status with acute respiratory difficulty. Patient in respiratory distress and agitated, she has placed on BiPAP. No family members at bedside and patient is not sitting up position. She also has evidence of acute kidney injury. Sugar was elevated more than 600 on admission. Patient has worsening labs with high creatinine 4.9. CT of the brain negative for acute process. Chest x-ray showed bilateral pulmonary edema or infiltrates. EKG sinus rhythm Patient was admitted to the ICU to be started on antihypertensive drips with close monitoring of mental status and other vital functions. 05/16/2024 pt remains in the icu, she is on , she is not on resp distress , on 2 l/m of o xygen with good saturation She looks tired however less confused. Patient has Razo catheter with little urine output. Patient is oliguric Hemodialysis catheter in place and patient currently undergoing hemodialysis today. 05/16/24 Patient awake looks tired Her blood pressure controlled with oral medication, antihypertensive drip was stopped and systolic blood pressure is Below 160 on hydralazine 25 mg, clonidine 0.1 mg and nifedipine 60 mg twice daily Patient is getting another hemodialysis today where 3.5 L will be taken out. Patient herself is awake and alert but she feels pain all over using Tylenol recommend to give one-time dose of [place]. 05/17/2024 Mentation at baseline, breathing also back to baseline with no breathing difficulty at rest. And no significant basilar crepitation on exam. Leg edema is improving as well. Patient blood pressure is better controlled on Coreg 25 mg, clonidine 0.1 twice daily, nifedipine 60 mg twice daily and hydralazine 50 mg 4 times a day. Currently blood pressure controlled Labs stable Glucose still fluctuating, it was low in the morning so lowered dose of Levemir 25 down to 20 units Objective - Vital Signs Vital signs: Vital Signs Temp 99.3 F 05/17/24 19:14 Pulse 88 05/17/24 21:49 Resp 18 05/17/24 19:14 BP 154/93 05/17/24 19:14 Pulse Ox 95 05/17/24 19:14 FiO2 40 05/14/24 16:45 Intake & Output 07/03/24 07/03/24 07/04/24 06:59 18:59 06:59 Intake Total 500 1620 Output Total 0 Balance 500 1620 Intake: Oral 500 1620 Output: Urine 0 Stool 0 Other: Voiding Method Indwelling Catheter - Exam -GENERAL: The patient is alert and oriented x3, mildly confused, not in any acute distress. Well developed, well nourished. HEENT: Pupils are round and equally reacting to light. EOMI. No scleral icterus. No conjunctival pallor. Normocephalic, atraumatic. No pharyngeal erythema. No thyromegaly. CARDIOVASCULAR: S1 and S2 present. No murmurs, rubs, or gallops. PULMONARY: Chest is clear to auscultation, no wheezing , no crackles. ABDOMEN: Soft, nontender, nondistended, normoactive bowel sounds. No palpable organomegaly. MUSCULOSKELETAL: No joint swelling or deformity. -EXTREMITIES: No cyanosis, clubbing. Bilateral pitting leg l edema. NEUROLOGICAL: Gross neurological examination did not reveal any focal deficits. SKIN: No rashes. no petechiae. - Labs CBC & Chem 7: 05/16/24 05:42 05/17/24 07:30 Labs: Abnormal Lab Results - Last 24 Hours (Table) 05/17/24 05/17/24 05/17/24 Range/Units 03:55 04:13 12:32 POC Glucose (mg/dL) 48 L* 49 L* 236 H (70-110) mg/dL 05/17/24 05/17/24 Range/Units 17:14 19:51 POC Glucose (mg/dL) 427 H 352 H (70-110) mg/dL Assessment and Plan Assessment: Metabolic encephalopathy Hypertensive emergency Acute pulmonary edema End-stage kidney disease on hemodialysis 4 times a week. Diabetic ketoacidosis Anemia, chronic Plan: Continue close monitoring in the ICU Continue with antihypertensive medication of hydralazine, clonidine and nifedipine Continue insulin with close monitoring of glucose Pulmonary/critical care team on the case Continue with hemodialysis per nephrology team who are on consult GI prophylaxis on Protonix DVT prophylaxis Prognosis is guarded
[2024-05-18 01:19] LABS: Glucose,Whole Blood 165 mg/dL (70-110)
[2024-05-18 06:51] LABS: Glucose,Whole Blood 65 mg/dL (70-110)
[2024-05-18 07:09] LABS: Glucose,Whole Blood 66 mg/dL (70-110)
[2024-05-18 07:27] LABS: Glucose,Whole Blood 65 mg/dL (70-110)
[2024-05-18 08:01] LABS: Glucose,Whole Blood 91 mg/dL (70-110)
[2024-05-18 08:15] VITALS: RESP 16
--- NOTE | 2024-05-18 11:17 | P.PN ---
Subjective Progress Note Date: 05/18/24 Patient is being followed for end-stage renal disease. She is maintained on hemodialysis on Wednesday, Wednesday, , and Wednesday. Patient was seen while receiving hemodialysis in the room. She states that she is feeling better today and is asking to go home. Vital signs are stable. General: No acute distress. Lungs: No rhonchi, wheezes, or rales. Heart: Rate and rhythm are regular. Extremities: No edema present. Objective - Vital Signs Vital signs: Vital Signs Temp 98.2 F 05/18/24 06:44 Pulse 93 05/18/24 06:44 Resp 16 05/18/24 06:44 BP 154/91 05/18/24 06:44 Pulse Ox 97 05/18/24 08:04 FiO2 40 05/14/24 16:45 Intake & Output 05/17/24 05/18/24 05/18/24 18:59 06:59 18:59 Intake Total 1620 Output Total 0 Balance 1620 0 Intake: Oral 1620 Output: Urine 0 Stool 0 Other: Voiding Method Indwelling Catheter - Labs CBC & Chem 7: 05/16/24 05:42 05/17/24 07:30 Labs: Abnormal Lab Results - Last 24 Hours (Table) 05/17/24 05/17/24 05/17/24 Range/Units 12:32 17:14 19:51 POC Glucose (mg/dL) 236 H 427 H 352 H (70-110) mg/dL 05/18/24 05/18/24 05/18/24 Range/Units 01:15 06:48 07:07 POC Glucose (mg/dL) 165 H 65 L 66 L (70-110) mg/dL 05/18/24 Range/Units 07:25 POC Glucose (mg/dL) 65 L (70-110) mg/dL Assessment and Plan Assessment: 1. End-stage renal disease maintained on hemodialysis on Wednesday, Wednesday, , and Wednesday. 2. Acute hypoxic respiratory failure secondary to volume overload. 3. Hypertensive emergency with pulmonary edemaimproved. 4. Diabetes mellitus. 5. Anemia of chronic kidney disease. 6. Chronic kidney disease, mineral bone disease maintained on Renvela. Plan: Maintain blood glucose control. Continue to monitor renal function. Monitor volume status closely. Continue hydralazine 50 mg. Maintain low-salt diet and fluid restriction of less than 50 ounces per day. Continue on dialysis 4 times per week. Patient is cleared for discharge from a nephrology standpoint. Patient was seen and examined independently along with resident. Patient seen while on HD today. Clear for discharge from nephrology standpoint. Agree with assessment and planned as outlined.
[2024-05-18 12:05] LABS: Glucose,Whole Blood 196 mg/dL (70-110)
[2024-05-18 12:33] VITALS: TEMP 97.6
[2024-05-18 13:21] VITALS: BP 158/90; PULSE 94
[2024-05-18 17:01] LABS: Glucose,Whole Blood 551 mg/dL (70-110)
[2024-05-18 17:08] LABS: Glucose,Whole Blood 543 mg/dL (70-110)
[2024-05-18] MEDS: INSULIN DETEMIR (LEVEMIR) 100 UNIT/ML SYR SQ ONE (18:55)
[2024-05-18 19:05] LABS: Glucose,Whole Blood 529 mg/dL (70-110)
[2024-05-18] MEDS ORDERED: INSULIN DETEMIR (LEVEMIR) 100 UNIT/ML SYR SQ SCH (21:00)
--- NOTE | 2024-05-19 06:43 | P.DS ---
Providers Date of admission: 05/14/24 15:39 Attending physician: Jamal Glasgow MD Consults: 05/14/24 15:32 Consult Physician Urgent Consulting Provider: Gary Andrade Consult Reason/Comments: esrd on hd Do you want consulting provider notified?: Yes Primary care physician: Charlene Lim [facility] Course: Please note patient was not discharged but she left AGAINST MEDICAL ADVICE Diagnoses: Metabolic encephalopathy Hypertensive emergency Acute pulmonary edema secondary to above resolved End-stage kidney disease on hemodialysis 4 times a week. Diabetic ketoacidosis Anemia, chronic Hospital course: Aydin Kirkland is a 34 years old female of past medical history of acute pulmonary edema and hypertensive emergency and acute CHF. Presents because of altered mental status with acute respiratory difficulty. Patient in respiratory distress and agitated, she has placed on BiPAP. No family members at bedside and patient is not sitting up position. She also has evidence of acute kidney injury. Sugar was elevated more than 600 on admission. Patient has worsening labs with high creatinine 4.9. CT of the brain negative for acute process. Chest x-ray showed bilateral pulmonary edema or infiltrates. EKG sinus rhythm Patient was admitted to the ICU to be started on antihypertensive drips with close monitoring of mental status and other vital functions. 05/16/2024 pt remains in the icu, she is on , she is not on resp distress , on 2 l/m of oxygen with good saturation She looks tired however less confused. Patient has Razo catheter with little urine output. Patient is oliguric Hemodialysis catheter in place and patient currently undergoing hemodialysis today. 05/16/24 Patient awake looks tired Her blood pressure controlled with oral medication, antihypertensive drip was stopped and systolic blood pressure is Below 160 on hydralazine 25 mg, clonidine 0.1 mg and nifedipine 60 mg twice daily Patient is getting another hemodialysis today where 3.5 L will be taken out. Patient herself is awake and alert but she feels pain all over using Tylenol recommend to give one-time dose of Raymond. 05/17/2024 Mentation at baseline, breathing also back to baseline with no breathing difficulty at rest. And no significant basilar crepitation on exam. Leg edema is improving as well. Patient blood pressure is better controlled on Coreg 25 mg, clonidine 0.1 twice daily, nifedipine 60 mg twice daily and hydralazine 50 mg 4 times a day. Currently blood pressure controlled Labs stable Glucose still fluctuating, it was low in the morning so lowered dose of Levemir 25 down to 20 units 05/18/2024 Patient clinically was doing well. She was asymptomatic in the morning with no chest pain dyspnea Retail Pharmacy Merchandiser also evaluated the patient and cleared her for discharge However through the day went on her sugar started going up more than 500, insulin sliding scale coverage provided as well extra doses of Levemir 5 units and we were monitoring her sugar. However she has not has not been normalizing Patient asked to be discharged and then proceeded to leave AMA when we tried to explain to her she is not medically ready for discharge Risks of leaving AMA are explained for the patient in detail including but not limited to the risk of worsening high blood pressure sugar pulmonary edema heart disease and or and she verbalized understanding and acceptance however she was adamant to leave. When asked the patient if we can do anything to prevent her from leaving she said no Based upon my evaluation patient has capacity to make medical decision and medical team cannot hold her against her well. However prescription is provided for her as paper copies upon discharge as earlier I reviewed all the medications with her and these are the new prescriptions and some of the old prescription that she needs, she told me she has the rest at home. We explained to the patient although this prescription provided for her however that we will not guarantee she will not be exposed to risk of leaving AMA. We asked the patient to follow-up with PCP in 1 day Also we advised the patient to come back to emergency room if any worsening symptoms or concerns or if changes her mind We advised patient to ask some family/friend to pick her up, as per staff her boyfriend showed up to take her home She needs follow-up as an outpatient. Patient was instructed to follow up with PCP within one DAY Physical exam Gen: patient is a AAOx3, no distress CVS: S1-S2, RRR, no murmur Lungs: B/L CTA, no wheezing Abdomen: soft, no distention, no tenderness, positive bowel sounds Extremity: no leg edema or induration Time spent more than 35 minutes Patient Condition at Discharge: Serious Plan - Discharge Summary New Discharge Prescriptions: Continue Sertraline [Zoloft] 200 mg PO DAILY@0800 Squire Caps 1 cap PO HS@2100 Atorvastatin [Lipitor] 40 mg PO HS@2100 methocarbamoL [Robaxin-750] 750 mg PO QID@02,06,12,17 Ondansetron [Zofran] 4 mg PO Q8HR PRN PRN Reason: Nausea And Vomiting bisacodyL [Dulcolax] 10 mg RECTAL DAILY PRN PRN Reason: Constipation Magnesium Hydroxide [Milk of Magnesia Concentrate] 7,200 mg PO DAILY PRN PRN Reason: Constipation Lidocaine 4% Patch 1 patch TOPICAL DAILY@0800 Ipratropium-Albuterol Nebulize [Duoneb 0.5 mg-3 mg/3 ml Soln] 3 ml INHALATION RT-TID PRN each PRN Reason: Shortness Of Breath Or Wheezing Metoclopramide [Reglan] 5 mg PO AC-TID tab Biotene Dry Mouth/Throat 10 ml PO BID PRN PRN Reason: DRY MOUTH/THROAT Acetaminophen [Tylenol] 650 mg PO Q4H PRN PRN Reason: Pain Or Fever > 100.5 traZODone HCL [Desyrel] 50 mg PO HS tab Darbepoetin Artur [Aranesp] 40 mcg SQ MO Sevelamer [Renvela] 800 mg PO HS Loratadine [Claritin] 5 mg PO DAILY tab INSULIN ASPART (NovoLOG) [NovoLOG (formulary)] See Protocol SQ ACHS carvediloL [Coreg] 25 mg PO BID-W/MEALS #60 tablet hydrALAZINE HCL [Apresoline] 150 mg PO TID #300 tab cloNIDine HCL [Catapres] 0.1 mg PO BID 60 Days #90 tab NIFEdipine XL [Procardia XL] 60 mg PO BID@0800,1700 #60 tab Levothyroxine Sodium [Synthroid] 175 mcg PO DAILY@0600 Divalproex ER [Depakote ER] 500 mg PO BID@0800,1700 Pantoprazole [Protonix] 40 mg PO DAILY@0600 Sevelamer [Renvela] 1,600 mg PO AC-TID@07,11,1630 Docusate [Colace] 100 mg PO DAILY@0800 polyethylene glycoL 3350 [Miralax] 17 gm PO AC-LUNCH #527 gm Melatonin 1 mg PO HS tab Butalb/APAP/Caff 50-325-40Mg [Fioricet 50-325-40] 1 tab PO Q4HR PRN PRN Reason: Headache ALPRAZolam [Xanax] 0.5 mg PO BID PRN #4 tab PRN Reason: Anxiety Acetaminophen-Codeine 300-30mg [Tylenol w/codeine #3] 1 tab PO Q6HR PRN 3 Days #12 tab PRN Reason: Pain Aspirin 81 mg PO DAILY@0800 #30 tab Isosorbide Mononitrate ER [Imdur] 30 mg PO DAILY #30 tab Changed Sacubitril/Valsartan [Entresto 49 mg-51 mg Tablet] 1 tab PO BID #60 tab Insulin Glargine [Lantus Vial] 17 unit SQ HS #1 each Discharge Medication List Levothyroxine Sodium [Synthroid] 175 mcg PO DAILY@0600 10/22/23 [History] Sertraline [Zoloft] 200 mg PO DAILY@0810/22/23 [History] Atorvastatin [Lipitor] 40 mg PO HS@209912/27/23 [History] Divalproex ER [Depakote ER] 500 mg PO BID@0800,1700 12/27/23 [History] Ondansetron [Zofran] 4 mg PO Q8HR PRN 12/27/23 [History] Pantoprazole [Protonix] 40 mg PO DAILY@0612/27/23 [History] Squire Caps 1 cap PO HS@209912/27/23 [History] methocarbamoL [Robaxin-750] 750 mg PO QID@02,06,12,12/27/23 [History] Docusate [Colace] 100 mg PO DAILY@0802/05/24 [History] Lidocaine 4% Patch 1 patch TOPICAL DAILY@0802/05/24 [History] Magnesium Hydroxide [Milk of Magnesia Concentrate] 7,200 mg PO DAILY PRN [History] Sevelamer [Renvela] 1,600 mg PO AC-TID@07,11,1630 02/05/24 [History] bisacodyL [Dulcolax] 10 mg RECTAL DAILY PRN 02/05/24 [History] Ipratropium-Albuterol Nebulize [Duoneb 0.5 mg-3 mg/3 ml Soln] 3 ml INHALATION RT-TID PRN each 02/14/24 [Rx] Metoclopramide [Reglan] 5 mg PO AC-TID tab 02/14/24 [Rx] polyethylene glycoL 3350 [Miralax] 17 gm PO AC-LUNCH #527 gm 02/14/24 [Rx] Acetaminophen [Tylenol] 650 mg PO Q4H PRN 02/18/24 [History] Biotene Dry Mouth/Throat 10 ml PO BID PRN 02/18/24 [History] Melatonin 1 mg PO HS tab 02/25/24 [Rx] traZODone HCL [Desyrel] 50 mg PO HS tab 02/25/24 [Rx] Butalb/APAP/Caff 50-325-40Mg [Fioricet 50-325-40] 1 tab PO Q4HR PRN 03/14/24 [History] Darbepoetin Artur [Aranesp] 40 mcg SQ MO 03/14/24 [History] Sevelamer [Renvela] 800 mg PO HS 03/14/24 [History] ALPRAZolam [Xanax] 0.5 mg PO BID PRN #4 tab 03/30/24 [Rx] Loratadine [Claritin] 5 mg PO DAILY tab 03/30/24 [Rx] INSULIN ASPART (NovoLOG) [NovoLOG (formulary)] See Protocol SQ ACHS 04/16/24 [History] Acetaminophen-Codeine 300-30mg [Tylenol w/codeine #3] 1 tab PO Q6HR PRN 3 Days #12 tab 04/17/24 [Rx] carvediloL [Coreg] 25 mg PO BID-W/MEALS #60 tablet 04/29/24 [Rx] Aspirin 81 mg PO DAILY@0800 #30 tab 05/18/24 [Rx] Insulin Glargine [Lantus Vial] 17 unit SQ HS #1 each 05/18/24 [Rx] Isosorbide Mononitrate ER [Imdur] 30 mg PO DAILY #30 tab 05/18/24 [Rx] NIFEdipine XL [Procardia XL] 60 mg PO BID@0800,1700 #60 tab 05/18/24 [Rx] Sacubitril/Valsartan [Entresto 49 mg-51 mg Tablet] 1 tab PO BID #60 tab 05/18/24 [Rx] cloNIDine HCL [Catapres] 0.1 mg PO BID 60 Days #90 tab 05/18/24 [Rx] hydrALAZINE HCL [Apresoline] 150 mg PO TID #300 tab 05/18/24 [Rx] Follow up Appointment(s)/Referral(s): Charlene Lim MD [Primary Care Provider] - 1-2 days Patient Instructions/Handouts: Pulmonary Edema (DC) Activity/Diet/Wound Care/Special Instructions: heart healthy diet activity is restricted till you see your doctor we recommend you check your glucose 4 times per day before each meal and at bed time, keep the results in a logbook and bring it to your doctor on your appointment date if your glucose is less than 70 or more than 400 then call 911 and come to emergency room Discharge Disposition: LEFT AGAINST MEDICAL ADVICE
== END 2024-05-18 19:51 | disposition left against medical advice (07) | DRG 194 ==
LOC: EC 10:19 → 2SICU 15:39 → 5NMEDONC 05-16 19:28
PROVIDERS: ADMIT Internal Medicine; ATTEND Internal Medicine
PROC: 5A09357 Assistance with Respiratory Ventilation, Less than 24 Consecutive Hours, Continuous Positive Airway Pressure (ICD-10-PCS; principal; 2024-05-14)
PROC: 5A1D70Z Performance of Urinary Filtration, Intermittent, Less than 6 Hours Per Day (ICD-10-PCS; 2024-05-14)
DX: I13.2 Hypertensive heart and chronic kidney disease with heart failure and with stage 5 chronic kidney disease, or end stage renal disease (principal); E11.22 Type 2 diabetes mellitus with diabetic chronic kidney disease; G93.41 Metabolic encephalopathy; N18.6 End stage renal disease; I50.31 Acute diastolic (congestive) heart failure; I16.1 Hypertensive emergency; E11.10 Type 2 diabetes mellitus with ketoacidosis without coma; J96.01 Acute respiratory failure with hypoxia; D63.1 Anemia in chronic kidney disease; Z53.29 Procedure and treatment not carried out because of patient's decision for other reasons; N17.9 Acute kidney failure, unspecified; E83.89 Other disorders of mineral metabolism; K21.9 Gastro-esophageal reflux disease without esophagitis; G40.909 Epilepsy, unspecified, not intractable, without status epilepticus; E11.40 Type 2 diabetes mellitus with diabetic neuropathy, unspecified; E11.43 Type 2 diabetes mellitus with diabetic autonomic (poly)neuropathy; K31.84 Gastroparesis; E07.9 Disorder of thyroid, unspecified; F32.A Depression, unspecified; E11.319 Type 2 diabetes mellitus with unspecified diabetic retinopathy without macular edema; Z99.2 Dependence on renal dialysis; Z79.4 Long term (current) use of insulin; F41.9 Anxiety disorder, unspecified; F17.200 Nicotine dependence, unspecified, uncomplicated; R45.1 Restlessness and agitation; Z86.73 Personal history of transient ischemic attack (TIA), and cerebral infarction without residual deficits; Z79.899 Other long term (current) drug therapy; Z79.890 Hormone replacement therapy; Z79.82 Long term (current) use of aspirin; Z88.5 Allergy status to narcotic agent; Z88.6 Allergy status to analgesic agent; Z76.82 Awaiting organ transplant status
CPT/HCPCS: 36415; 36600; 51702; 70450; 71045; 80048; 80051; 80053; 80164; 80306; 80320; 81001; 81025; 82009; 82565; 82728; 82803; 82805; 82947; 83036; 83540; 83550; 83605; 83880; 84100; 84443; 84484; 84520; 85025; 85610; 85730; 90935; 93005; 94640; 94660; 94760; 96361; 96374; 99291

== ENCOUNTER 2024-06-30 05:00 | Inpatient (IN) | payer OTHER ==
[2024-07-02] MEDS ORDERED: NITROGLYCERIN SL TABS 0.4 MG TAB SUBLINGUAL ONE (23:43)
[2024-07-03] MEDS ORDERED: NITROGLYCERIN 1000MCG/10ML SYRINGE ONE (00:55)
[2024-07-03] MEDS ORDERED: NITROGLYCERIN-D5W PMX 25 MG/250 ML BTL IV ONE (00:55)
[2024-07-03] MEDS ORDERED: MORPHINE SULFATE 4 MG/ML SYRINGE ONE ×2 (01:50→04:25)
[2024-07-03] MEDS ORDERED: INSULIN REGULAR 100 UNIT/ML VIAL (IV) ONE ×2 (03:23→05:13)
[2024-07-03] MEDS ORDERED: NITROGLYCERIN-D5W PMX 250 ML IV ONE (06:27)
[2024-07-03] MEDS ORDERED: ENOXAPARIN 30 MG/0.3 ML SYRINGE SQ ONE (11:00)
[2024-07-03] MEDS ORDERED: PANTOPRAZOLE 40 MG/10 ML VIAL ONE (11:00)
[2024-07-03] MEDS ORDERED: INSULIN ASPART (NovoLOG) 100 UNIT/ML VIAL SQ ONE ×2 (11:01→19:23)
[2024-07-03] MEDS ORDERED: hydrALAZINE HCL 20 MG/ML 1 ML VIAL ONE ×2 (15:10→20:38)
[2024-07-03] MEDS ORDERED: cloNIDine HCL 0.1 MG TAB ONE ×2 (16:08→21:27)
[2024-07-03] MEDS ORDERED: hydrALAZINE HCL 50 MG TAB ONE ×2 (16:08→21:27)
[2024-07-03] MEDS ORDERED: carvediloL 12.5 MG TAB ONE (16:08)
[2024-07-03] MEDS ORDERED: HYDROcodone/APAP 7.5-325MG 1 EACH TAB ONE (20:43)
[2024-07-03] MEDS ORDERED: LABETALOL 200 MG TAB ONE (23:59)
[2024-07-04] MEDS ORDERED: ALPRAZolam 0.25 MG TAB ONE ×2 (00:51→20:59)
[2024-07-04] MEDS ORDERED: cloNIDine HCL 0.1 MG TAB ONE ×4 (00:51→21:00)
[2024-07-04] MEDS ORDERED: ONDANSETRON 4 MG/2 ML VIAL ONE ×4 (01:04→21:09)
[2024-07-04] MEDS ORDERED: MORPHINE SULFATE 4 MG/ML SYRINGE ONE ×4 (02:39→20:59)
[2024-07-04] MEDS ORDERED: DEXTROSE 50% SYRINGE 50 ML IVP ONE (06:40)
[2024-07-04] MEDS ORDERED: PANTOPRAZOLE 40 MG TABLET PO ONE (10:35)
[2024-07-04] MEDS ORDERED: HYDROcodone/APAP 7.5-325MG 1 EACH TAB ONE (10:35)
[2024-07-04] MEDS ORDERED: ISOSORBIDE MONONITRATE ER 30 MG TAB.ER.24H PO ONE (13:05)
[2024-07-04] MEDS ORDERED: hydrALAZINE HCL 50 MG TAB ONE ×2 (13:06→20:59)
[2024-07-04] MEDS ORDERED: INSULIN ASPART (NovoLOG) 100 UNIT/ML VIAL SQ ONE ×2 (16:53→21:00)
[2024-07-04] MEDS ORDERED: PANTOPRAZOLE 40 MG/10 ML VIAL ONE (20:58)
[2024-07-04] MEDS ORDERED: HEPARIN SODIUM,PORCINE 5,000 UNIT/ML 1 ML VIAL ONE (20:58)
[2024-07-04] MEDS ORDERED: INSULIN DETEMIR (LEVEMIR) 100 UNIT/ML SYR SQ ONE (23:59)
[2024-07-04] MEDS ORDERED: INSULIN REGULAR 100 UNIT/ML VIAL (IV) ONE (23:59)
[2024-07-04] MEDS ORDERED: SODIUM CHLORIDE 0.9% 100 ML BAG IV ONE (23:59)
[2024-07-05] MEDS ORDERED: MORPHINE SULFATE 4 MG/ML SYRINGE ONE ×5 (04:17→21:56)
[2024-07-05] MEDS ORDERED: ONDANSETRON 4 MG/2 ML VIAL ONE ×4 (04:17→23:34)
[2024-07-05] MEDS ORDERED: INSULIN ASPART (NovoLOG) 100 UNIT/ML VIAL SQ ONE ×3 (04:18→20:50)
[2024-07-05] MEDS ORDERED: cloNIDine HCL 0.1 MG TAB ONE ×3 (07:13→20:50)
[2024-07-05] MEDS ORDERED: HEPARIN SODIUM,PORCINE 5,000 UNIT/ML 1 ML VIAL ONE ×2 (09:58→20:51)
[2024-07-05] MEDS ORDERED: hydrALAZINE HCL 50 MG TAB ONE ×5 (09:58→20:50)
[2024-07-05] MEDS ORDERED: ISOSORBIDE MONONITRATE ER 30 MG TAB.ER.24H PO ONE (09:58)
[2024-07-05] MEDS ORDERED: HYDROcodone/APAP 7.5-325MG 1 EACH TAB ONE (20:49)
[2024-07-05] MEDS ORDERED: PANTOPRAZOLE 40 MG/10 ML VIAL ONE (20:49)
[2024-07-05] MEDS ORDERED: MAGNESIUM SULFATE-D5W PMX 100 ML IVPB ONE (20:51)
[2024-07-05] MEDS ORDERED: ALPRAZolam 0.25 MG TAB ONE (22:12)
[2024-07-05] MEDS ORDERED: traZODone HCL 50 MG TAB ONE (22:13)
[2024-07-05] MEDS ORDERED: INSULIN DETEMIR (LEVEMIR) 100 UNIT/ML SYR SQ ONE (23:59)
[2024-07-05] MEDS ORDERED: LABETALOL 200 MG TAB ONE (23:59)
[2024-07-06] MEDS ORDERED: MORPHINE SULFATE 4 MG/ML SYRINGE ONE ×6 (02:00→23:52)
[2024-07-06] MEDS ORDERED: HYDROcodone/APAP 7.5-325MG 1 EACH TAB ONE (04:21)
[2024-07-06] MEDS ORDERED: cloNIDine HCL 0.1 MG TAB ONE ×3 (06:12→19:59)
[2024-07-06] MEDS ORDERED: ONDANSETRON 4 MG/2 ML VIAL ONE ×4 (06:12→23:52)
[2024-07-06] MEDS ORDERED: PANTOPRAZOLE 40 MG/10 ML VIAL ONE ×2 (11:47→19:59)
[2024-07-06] MEDS ORDERED: hydrALAZINE HCL 50 MG TAB ONE ×4 (11:48→19:59)
[2024-07-06] MEDS ORDERED: ISOSORBIDE MONONITRATE ER 30 MG TAB.ER.24H PO ONE (11:48)
[2024-07-06] MEDS ORDERED: HEPARIN SODIUM,PORCINE 5,000 UNIT/ML 1 ML VIAL ONE ×2 (11:49→20:00)
[2024-07-06] MEDS ORDERED: ALPRAZolam 0.25 MG TAB ONE ×2 (17:32→23:52)
[2024-07-06] MEDS ORDERED: cloNIDine HCL 0.2 MG TAB ONE (19:59)
[2024-07-06] MEDS ORDERED: INSULIN ASPART (NovoLOG) 100 UNIT/ML VIAL SQ ONE (20:00)
[2024-07-06] MEDS ORDERED: traZODone HCL 50 MG TAB ONE (20:00)
[2024-07-06] MEDS ORDERED: INSULIN DETEMIR (LEVEMIR) 100 UNIT/ML SYR SQ ONE (23:59)
[2024-07-06] MEDS ORDERED: LABETALOL 200 MG TAB ONE (23:59)
[2024-07-07] MEDS ORDERED: MORPHINE SULFATE 4 MG/ML SYRINGE ONE ×5 (04:01→22:54)
[2024-07-07] MEDS ORDERED: ONDANSETRON 4 MG/2 ML VIAL ONE ×3 (06:33→18:08)
[2024-07-07] MEDS ORDERED: cloNIDine HCL 0.1 MG TAB ONE ×4 (06:33→20:08)
[2024-07-07] MEDS ORDERED: cloNIDine HCL 0.2 MG TAB ONE (06:33)
[2024-07-07] MEDS ORDERED: HYDROcodone/APAP 7.5-325MG 1 EACH TAB ONE ×3 (06:33→21:57)
[2024-07-07] MEDS ORDERED: PANTOPRAZOLE 40 MG/10 ML VIAL ONE ×2 (07:58→19:30)
[2024-07-07] MEDS ORDERED: HEPARIN SODIUM,PORCINE 5,000 UNIT/ML 1 ML VIAL ONE ×2 (07:58→19:30)
[2024-07-07] MEDS ORDERED: ISOSORBIDE MONONITRATE ER 30 MG TAB.ER.24H PO ONE (11:59)
[2024-07-07] MEDS ORDERED: hydrALAZINE HCL 50 MG TAB ONE ×3 (11:59→19:30)
[2024-07-07] MEDS ORDERED: ALPRAZolam 0.25 MG TAB ONE ×2 (12:06→20:14)
[2024-07-07] MEDS ORDERED: INSULIN ASPART (NovoLOG) 100 UNIT/ML VIAL SQ ONE ×3 (12:17→20:06)
[2024-07-07] MEDS ORDERED: traZODone HCL 50 MG TAB ONE (20:15)
[2024-07-07] MEDS ORDERED: LABETALOL 200 MG TAB ONE (23:59)
[2024-07-07] MEDS ORDERED: INSULIN DETEMIR (LEVEMIR) 100 UNIT/ML SYR SQ ONE (23:59)
[2024-07-08] MEDS ORDERED: MORPHINE SULFATE 4 MG/ML SYRINGE ONE ×5 (04:09→20:45)
[2024-07-08] MEDS ORDERED: INSULIN ASPART (NovoLOG) 100 UNIT/ML VIAL SQ ONE (05:59)
[2024-07-08] MEDS ORDERED: PANTOPRAZOLE 40 MG/10 ML VIAL ONE ×2 (07:50→19:54)
[2024-07-08] MEDS ORDERED: hydrALAZINE HCL 50 MG TAB ONE (07:51)
[2024-07-08] MEDS ORDERED: ISOSORBIDE MONONITRATE ER 30 MG TAB.ER.24H PO ONE (07:51)
[2024-07-08] MEDS ORDERED: cloNIDine HCL 0.1 MG TAB ONE (07:51)
[2024-07-08] MEDS ORDERED: ONDANSETRON 4 MG/2 ML VIAL ONE ×2 (07:51→16:37)
[2024-07-08] MEDS ORDERED: HEPARIN SODIUM,PORCINE 5,000 UNIT/ML 1 ML VIAL ONE (07:52)
[2024-07-08] MEDS ORDERED: NIFEdipine XL 30 MG TAB.ER.24 PO ONE (07:52)
[2024-07-08] MEDS ORDERED: HYDROcodone/APAP 7.5-325MG 1 EACH TAB ONE ×2 (11:19→22:57)
[2024-07-08] MEDS ORDERED: ASPIRIN 81 MG ONE (14:14)
[2024-07-08] MEDS ORDERED: FAMOTIDINE 20 MG TAB ONE (19:55)
[2024-07-08] MEDS ORDERED: ALPRAZolam 0.5 MG TAB ONE (20:16)
[2024-07-08] MEDS ORDERED: LABETALOL 200 MG TAB ONE (23:59)
[2024-07-08] MEDS ORDERED: INSULIN DETEMIR (LEVEMIR) 100 UNIT/ML SYR SQ ONE (23:59)
[2024-07-09] MEDS ORDERED: NALOXONE 0.4 MG/ML 1 ML VIAL IVP PRN
[2024-07-09] MEDS ORDERED: hydrALAZINE HCL 20 MG/ML 1 ML VIAL IVP PRN
[2024-07-09] MEDS ORDERED: guaiFENesin SYRUP 100MG/5ML 200 MG/10 ML CUP PO PRN
[2024-07-09] MEDS ORDERED: BENZONATATE 100 MG CAP PO PRN
[2024-07-09] MEDS ORDERED: BUTALB/APAP/CAFF 50-325-40MG TAB PO PRN
[2024-07-09] MEDS ORDERED: ALPRAZolam 0.25 MG TAB PO PRN
[2024-07-09] MEDS ORDERED: ALPRAZolam 0.5 MG TAB PO PRN
[2024-07-09] MEDS ORDERED: methocarbamoL 750 MG TAB PO PRN
[2024-07-09] MEDS ORDERED: DEXTROSE 50% SYRINGE 50 ML IVP PRN ×2
[2024-07-09] MEDS ORDERED: BACLOFEN 10 MG TAB PO PRN
[2024-07-09] MEDS: DARBEPOETIN ALFA 40 MCG/0.4 ML SYRINGE SQ SCH (02:56)
[2024-07-09] MEDS: FOLIC ACID-VIT B COMPLEX-VIT C 1 CAP PO SCH (02:56)
[2024-07-09] MEDS: Potassium Replacement Protocol 1 EACH MISC MISCELLANE ONE (02:56)
[2024-07-09] MEDS: PROCHLORPERAZINE INJ 10 MG/2 ML VIAL IVP ONE (02:56)
[2024-07-09] MEDS: Phosphorus Replacement Protoco 1 EACH MISC MISCELLANE ONE (02:56)
[2024-07-09] MEDS: Magnesium Replacement Protocol 1 EACH MISC MISCELLANE ONE (02:56)
[2024-07-09 04:39] LABS: Anisocytosis Slight; Basophils % (A) 0 %; Eosinophils # (A) 0.9 k/uL (0-0.7); Eosinophils % (A) 8 %; HCT 28.7 % (34.0-46.0); HGB 9.1 gm/dL (11.4-16.0); Hypochromasia Marked; Lymphocytes # (A) 1.2 k/uL (1.0-4.8); Lymphocytes % (A) 11 %; MCH 32.5 pg (25.0-35.0); MCHC 31.7 g/dL (31.0-37.0); MCV 102.5 fL (80.0-100.0); Macrocytosis Moderate; Mean Platelet Volume 7.8; Monocytes # (A) 0.4 k/uL (0-1.0); Monocytes % (A) 4 %; Neutrophils # (A) 7.7 k/uL (1.3-7.7); Neutrophils % (A) 76 %; Platelet Count 336 k/uL (150-450); RDW 17.7 % (11.5-15.5); WBC 10.2 k/uL (3.8-10.6)
[2024-07-09] MEDS: ONDANSETRON 4 MG/2 ML VIAL IVP PRN (04:52)
[2024-07-09 05:19] LABS: African American GFR (CKD) 23 (>60 ml/min/1.73 sqM); Anion Gap 7 mmol/L; Blood Urea Nitrogen 10 mg/dL (7-17); Calcium 8.8 mg/dL (8.4-10.2); Carbon Dioxide 26 mmol/L (22-30); Chloride 99 mmol/L (98-107); Glucose 238 mg/dL (74-99); Magnesium 1.7 mg/dL (1.6-2.3); Non-African American GFR(CKD) 20 (>60 ml/min/1.73 sqM); Phosphorus 3.9 mg/dL (2.5-4.5); Potassium 4.2 mmol/L (3.5-5.1); Sodium 132 mmol/L (137-145)
[2024-07-09] MEDS: INSULIN DETEMIR (LEVEMIR) 100 UNIT/ML SYR SQ SCH (06:19)
[2024-07-09] MEDS: CALCIUM ACETATE 667 MG TAB PO SCH (06:19)
[2024-07-09] MEDS: INSULIN ASPART (NovoLOG) 100 UNIT/ML VIAL SQ SCH (06:19)
[2024-07-09] MEDS: MORPHINE SULFATE 4 MG/ML SYRINGE IVP PRN (06:19)
[2024-07-09] MEDS: LEVOTHYROXINE 88 MCG TAB PO SCH (06:19)
[2024-07-09] MEDS: PANTOPRAZOLE 40 MG/10 ML VIAL IVP SCH (09:27)
[2024-07-09] MEDS: hydrALAZINE HCL 50 MG TAB PO SCH (09:27)
[2024-07-09] MEDS: FAMOTIDINE 20 MG TAB PO SCH (09:28)
[2024-07-09] MEDS: SERTRALINE 100 MG TAB PO SCH (09:28)
[2024-07-09] MEDS: ASPIRIN 81 MG PO SCH (09:28)
[2024-07-09] MEDS: LABETALOL 200 MG TAB PO SCH (09:28)
[2024-07-09] MEDS: ISOSORBIDE MONONITRATE ER 30 MG TAB.ER.24H PO SCH (09:28)
[2024-07-09] MEDS: DIVALPROEX 500 MG TABLET.DR PO SCH (09:28)
[2024-07-09] MEDS: cloNIDine HCL 0.1 MG TAB PO SCH (09:28)
[2024-07-09] MEDS: HEPARIN SODIUM,PORCINE 5,000 UNIT/ML 1 ML VIAL SQ SCH (09:29)
[2024-07-09] MEDS: SACUBITRIL/VALSARTAN 49 MG-51 MG TABLET PO SCH (11:20)
[2024-07-09 11:37] LABS: Glucose,Whole Blood 104 mg/dL (70-110)
--- NOTE | 2024-07-09 12:48 | P.PN ---
Subjective Progress Note Date: 07/09/24 Patient is evaluated today in follow up on the medical floor. Was resumed on all her home medications yesterday. She had dizziness overnight. Reports hitting her head on the wall while walking to the bathroom. Brain CT was done. She was likely dizzy as her blood pressure has no normalized down to 120-130s systolic. Possibly was orthostatic. Sodium 132, creatinine 2.92. Hemoglobin 9.1. Review of Systems Constitutional: Denied any fatigue denied any fever. Cardio vascular: denied any chest pain, palpitations Gastrointestinal: denied any nausea, vomiting, diarrhea Pulmonary: Denied any shortness of breath cough Neurologic denied any new focal deficits All inpatient medications were reviewed and appropriate changes in these medications as dictated in the interval history and assessment and plan. PHYSICAL EXAMINATION: GENERAL: The patient is alert and oriented x3, not in any acute distress. Well developed, well nourished. on 3-4 L, pale. ill appearing. HEENT: Pupils are round and equally reacting to light. EOMI. No scleral icterus. No conjunctival pallor. Normocephalic, atraumatic. No pharyngeal erythema. No thyromegaly. CARDIOVASCULAR: S1 and S2 present. No murmurs, rubs, or gallops. PULMONARY: Chest is clear to auscultation, no wheezing or crackles. ABDOMEN: Soft, nontender, nondistended, normoactive bowel sounds. No palpable organomegaly. MUSCULOSKELETAL: No joint swelling or deformity. EXTREMITIES: No cyanosis, clubbing, or pedal edema. NEUROLOGICAL: Gross neurological examination did not reveal any focal deficits. Weakness. SKIN: No rashes. Assessment End stage renal disease maintained on hemodialysis Acute pulmonary edema. volume overload secondary to above Hypertension, uncontrolled, better after being resumed on her home medications Hypertensive urgency on admission Diabetes Mellitus type 2 uncontrolled with hyperglycemia and hypoglycemia Acute on Chronic hypoxic respiratory failure on 3 to 4 L outpatient Medical noncompliance Chronic pain and nausea Patient has 2 moles she is concerned about on her left shoulder and left breast. Advised to see derm on outpatient follow up. Anemia of chronic disease GI prophylaxis Full Code Plan Patient was resumed on her home blood pressure medications yesterday Patient underwent hemodialysis yesterday Patient is complaining of dizziness hit head on wall while walking to the bathroom; brain CT has been completed Patient was started on aranesp yesterday Continue home blood pressure medications remain off lisinopril has entresto has been resumed. Nephrology, pulmonary critical care following the patient closely. Check orthostatic vitals Discharge home in the next 24 hours. The impression and plan of care has been dictated by Yeni Blackburn, Nurse Practitioner as directed. Dr. Connie MD I have performed a history and physical examination and medical decision making of this patient, discussed the same with the dictator, and agree with the dictators assessment and plan as written, documented as a scribe. Based on total visit time, I have performed more than 50% of this visit. Objective - Vital Signs Vital signs: Vital Signs Temp 98.2 F 07/09/24 03:17 Pulse 89 07/09/24 08:00 Resp 16 07/09/24 08:00 BP 160/91 07/09/24 08:00 Pulse Ox 100 07/09/24 08:00 FiO2 35 07/09/24 03:11 Intake & Output 07/08/24 07/09/24 07/09/24 18:59 06:59 18:59 Intake Total 222 Balance 222 Weight 75.6 kg 67.4 kg Intake: Oral 222 Other: Voiding Method Toilet - Labs CBC & Chem 7: 07/09/24 03:10 07/09/24 03:46 Labs: Abnormal Lab Results - Last 24 Hours (Table) 07/09/24 07/09/24 Range/Units 03:10 03:46 RBC 2.80 L (3.80-5.40) m/uL Hgb 9.1 L (11.4-16.0) gm/dL Hct 28.7 L (34.0-46.0) % MCV 102.5 H (80.0-100.0) fL RDW 17.7 H (11.5-15.5) % Eosinophils # 0.9 H (0-0.7) k/uL Sodium 132 L (137-145) mmol/L Creatinine 2.92 H (0.52-1.04) mg/dL Glucose 238 H (74-99) mg/dL Assessment and Plan Time with Patient: Greater than 30
--- NOTE | 2024-07-09 12:58 | P.PN ---
Subjective Progress Note Date: 07/09/24 The patient is seen today July 09, 2024 and follow-up on the regular medical floor. She is sitting up in bed. Awake and alert in no acute distress. She is maintaining O2 saturations up to 100% on 2 L/min per nasal cannula. She has been afebrile. Hemodynamically stable. White count 10.2. Hemoglobin 9.1. Platelets 336. Sodium 132. Potassium 4.2. Bicarb 26. BUN 10. Creatinine 2.92. Glucose 238. She remains on heparin for DVT prophylaxis. Objective - Vital Signs Vital signs: Vital Signs Temp 98.2 F 07/09/24 03:17 Pulse 89 07/09/24 08:00 Resp 16 07/09/24 11:24 BP 122/69 07/09/24 11:24 Pulse Ox 100 07/09/24 11:24 FiO2 35 07/09/24 03:11 Intake & Output 07/08/24 07/09/24 07/09/24 18:59 06:59 18:59 Intake Total 222 Balance 222 Weight 75.6 kg 67.4 kg Intake: Oral 222 Other: Voiding Method Toilet Toilet - Exam GENERAL EXAM: Alert, 34-year-old female, on 2 L nasal cannula, comfortable in no apparent distress. HEAD: Normocephalic. EYES: Normal reaction of pupils, equal size. NOSE: Clear with pink turbinates. THROAT: No erythema or exudates. NECK: No masses, no JVD. CHEST: No chest wall deformity. LUNGS: Equal air entry with no crackles, wheeze, rhonchi or dullness. CVS: S1 and S2 normal with no audible murmur, regular rhythm. ABDOMEN: No hepatosplenomegaly, normal bowel sounds, no guarding or rigidity. SPINE: No scoliosis or deformity SKIN: No rashes CENTRAL NERVOUS SYSTEM: No focal deficits, tone is normal in all 4 extremities. EXTREMITIES: There is no peripheral edema. No clubbing, no cyanosis. Peripher al pulses are intact. - Labs CBC & Chem 7: 07/09/24 03:10 07/09/24 03:46 Labs: Abnormal Lab Results - Last 24 Hours (Table) 07/09/24 07/09/24 Range/Units 03:10 03:46 RBC 2.80 L (3.80-5.40) m/uL Hgb 9.1 L (11.4-16.0) gm/dL Hct 28.7 L (34.0-46.0) % MCV 102.5 H (80.0-100.0) fL RDW 17.7 H (11.5-15.5) % Eosinophils # 0.9 H (0-0.7) k/uL Sodium 132 L (137-145) mmol/L Creatinine 2.92 H (0.52-1.04) mg/dL Glucose 238 H (74-99) mg/dL Assessment and Plan Assessment: Acute on chronic hypoxic respiratory failure secondary to pulmonary edema End-stage renal disease maintained on hemodialysis Chronic anemia Hypertension Diabetes mellitus: The patient was seen and evaluated Labs and medications reviewed Titrate down the FiO2 as tolerated Increase her activity as tolerated Hemodialysis per nephrology Probable discharge in the a.m. I have personally seen and examined the patient, performed the documentation and the assessment and plan as written. Number of minutes spent on the visit: 10.
[2024-07-09] MEDS: ALPRAZolam 0.25 MG TAB PO PRN (13:47)
[2024-07-09] MEDS: BACLOFEN 10 MG TAB PO PRN (13:47)
[2024-07-09 16:31] LABS: Glucose,Whole Blood 192 mg/dL (70-110)
[2024-07-09 20:39] LABS: Glucose,Whole Blood 224 mg/dL (70-110)
[2024-07-09] MEDS ORDERED: traZODone HCL 50 MG TAB PO SCH (21:00)
[2024-07-09] MEDS: ATORVASTATIN 40 MG TAB PO SCH (21:49)
[2024-07-09] MEDS: traZODone HCL 50 MG TAB PO PRN (23:48)
[2024-07-10 06:20] LABS: Glucose,Whole Blood 161 mg/dL (70-110)
--- NOTE | 2024-07-10 10:27 | P.PN ---
Subjective Patient is seen in follow-up for end-stage renal disease. She is maintained on hemodialysis 4 days a week. Last dialysis Wednesday. Hemodynamically stable. Currently on room air. No active complaints. Vital signs are stable. General: No acute distress. HEENT: Head exam is unremarkable. LUNGS: No audible rhonchi or wheezes. HEART: Rate and Rhythm are regular. ABDOMEN: Nontender. EXTREMITITES: No edema. Objective - Vital Signs Vital signs: Vital Signs Temp 98.1 F 07/10/24 05:00 Pulse 78 07/10/24 08:00 Resp 16 07/10/24 08:00 BP 137/76 07/10/24 08:00 Pulse Ox 100 07/10/24 09:50 FiO2 35 07/09/24 03:11 Intake & Output 07/09/24 07/10/24 07/10/24 18:59 06:59 18:59 Intake Total 222 777 Balance 222 777 Weight 68.6 kg Intake: Oral 222 777 Other: Voiding Method Toilet Toilet # Voids 1 # Bowel Movements 1 - Labs CBC & Chem 7: 07/09/24 03:10 07/09/24 03:46 Labs: Abnormal Lab Results - Last 24 Hours (Table) 07/09/24 07/09/24 07/10/24 Range/Units 16:28 20:37 06:16 POC Glucose (mg/dL) 192 H 224 H 161 H (70-110) mg/dL Assessment and Plan Plan: Assessment: 1. End-stage renal disease maintained on hemodialysis on Wednesday schedule. 2. Acute hypoxic respiratory failure secondary to volume overload. Improved with ultrafiltration. 3. Hypertension with chronic kidney disease. Stable. 4. Chronic kidney disease mineral bone disease maintained on PhosLo. Phosphorus level 3.9 dated July 09, 2024. 5. Anemia of chronic kidney disease maintained on Aranesp. 6. Diabetes mellitus. Plan: Hemodialysis today.
[2024-07-10 11:29] LABS: Glucose,Whole Blood 119 mg/dL (70-110)
[2024-07-10] MEDS: ONDANSETRON 4 MG/2 ML VIAL ONE ×6 (12:12→12:51)
[2024-07-10] MEDS: MORPHINE SULFATE 4 MG/ML SYRINGE ONE ×8 (12:47→12:52)
[2024-07-10] MEDS: PANTOPRAZOLE 40 MG/10 ML VIAL ONE ×3 (12:47→12:51)
[2024-07-10] MEDS: ALPRAZolam 0.25 MG TAB ONE ×2 (12:48→12:51)
[2024-07-10] MEDS: FAMOTIDINE 20 MG TAB ONE ×3 (12:48→12:51)
[2024-07-10] MEDS: ASPIRIN 81 MG ONE ×2 (12:48→12:51)
--- NOTE | 2024-07-10 13:09 | P.PN ---
Subjective Progress Note Date: 07/10/24 Principal diagnosis: Shortness of breath. The patient is seen today July 09, 2024 and follow-up on the regular medical floor. She is sitting up in bed. Awake and alert in no acute distress. She is maintaining O2 saturations up to 100% on 2 L/min per nasal cannula. She has been afebrile. Hemodynamically stable. White count 10.2. Hemoglobin 9.1. Platelets 336. Sodium 132. Potassium 4.2. Bicarb 26. BUN 10. Creatinine 2.92. Glucose 238. She remains on heparin for DVT prophylaxis. Progress note dated July 10, 2024. 34-year-old female seen today in room 370. The patient is currently on 3 L by nasal cannula. The patient did not use the BiPAP device. The patient is scheduled to have hemodialysis today. The patient is not receiving any IV fluids currently. No new labs today, other than a glucose of 119. Objective - Vital Signs Vital signs: Vital Signs Temp 98.1 F 07/10/24 05:00 Pulse 66 07/10/24 12:00 Resp 16 07/10/24 12:00 BP 145/85 07/10/24 12:00 Pulse Ox 98 07/10/24 12:00 FiO2 35 07/09/24 03:11 Intake & Output 07/09/24 07/10/24 07/10/24 18:59 06:59 18:59 Intake Total 222 777 Balance 222 777 Weight 68.6 kg Intake: Oral 222 777 Other: Voiding Method Toilet Toilet Toilet # Voids 1 # Bowel Movements 1 - Exam No acute distress, oriented 3. Currently on 3 L of oxygen. HEENT examination is grossly unremarkable. Mucous membranes are moist. No oral lesions. Neck supple. Full range of motion. No adenopathy thyromegaly or neck vein distention. Cardiovascular examination reveals regular rhythm rate. S1-S2 normal. No S3 or S4. No discernible murmur noted. Lungs reveal clear breath sounds. Breath sounds are equal bilaterally. No adventitious lung sounds including wheezes rhonchi or crackles. Abdomen soft bowel sounds are heard. No masses or tenderness. Extremities are intact. No cyanosis clubbing or edema. Skin is without rash or lesion. Neurologic examination is brief but nonfocal. - Labs CBC & Chem 7: 07/09/24 03:10 07/09/24 03:46 Labs: Abnormal Lab Results - Last 24 Hours (Table) 07/09/24 07/09/24 07/10/24 Range/Units 16:28 20:37 06:16 POC Glucose (mg/dL) 192 H 224 H 161 H (70-110) mg/dL 07/10/24 Range/Units 11:26 POC Glucose (mg/dL) 119 H (70-110) mg/dL Assessment and Plan Assessment: Acute on chronic hypoxemic respiratory failure, secondary to pulmonary edema. End-stage renal disease, maintained on 3 times a week hemodialysis. Anemia of chronic disease. Benign essential hypertension. Diabetes mellitus. Plan: Plan dated July 10, 2024. The patient appears to be doing relatively well. She sitting up the bed, on nasal O2. No respiratory distress. The patient is scheduled to have hemodialysis today. Labs, x-rays, and medications are reviewed. From the pulmonary standpoint, the patient is cleared for discharge. She is not describing any new or worsening shortness of breath, cough, wheezing, chest tightness, or phlegm production. Time with Patient: Less than 30
[2024-07-10 15:20] VITALS: BMI 23.0
--- NOTE | 2024-07-10 15:48 | P.PN ---
Subjective Progress Note Date: 07/10/24 Patient is evaluated today in follow up on the medical floor. Was resumed on all her home medications yesterday. She had dizziness overnight. Reports hitting her head on the wall while walking to the bathroom. Brain CT was done. She was likely dizzy as her blood pressure has no normalized down to 120-130s systolic. Possibly was orthostatic. Sodium 132, creatinine 2.92. Hemoglobin 9.1. 07/10/2024 Patient seen in follow-up today currently receiving hemodialysis with nephrology and pulmonary following closely. Patient denies any worsening shortness of breath although scheduled to receive hemodialysis sometime today. Patient reports she undergoes dialysis 4 times a week on Wednesday/Wednesday/ /Wednesday. Will receive hemodialysis Wednesday morning and likely discharge. Blood pressures have been better controlled as well as blood sugars. Patient tolerating somewhat more oral intake and will continue current blood sugar regimen. Encouraged to increase activity as tolerated. Torsemide will be resumed on discharge. Review of Systems Constitutional: Denied any fatigue denied any fever. Cardio vascular: denied any chest pain, palpitations Gastrointestinal: denied any nausea, vomiting, diarrhea Pulmonary: Denied any worsening shortness of breath, denies cough Neurologic denied any new focal deficits All inpatient medications were reviewed and appropriate changes in these medications as dictated in the interval history and assessment and plan. PHYSICAL EXAMINATION: GENERAL: The patient is alert and oriented x3, not in any acute distress. Well developed, well nourished. on 3-4 L, pale. ill appearing. HEENT: Pupils are round and equally reacting to light. EOMI. No scleral icterus. No conjunctival pallor. Normocephalic, atraumatic. No pharyngeal erythema. No thyromegaly. CARDIOVASCULAR: S1 and S2 present. No murmurs, rubs, or gallops. PULMONARY: Chest is clear to auscultation, no wheezing or crackles. ABDOMEN: Soft, nontender, nondistended, normoactive bowel sounds. No palpable organomegaly. MUSCULOSKELETAL: No joint swelling or deformity. EXTREMITIES: No cyanosis, clubbing, or pedal edema. NEUROLOGICAL: Gross neurological examination did not reveal any focal deficits. Weakness. SKIN: No rashes. Assessment: End stage renal disease maintained on hemodialysis Acute pulmonary edema. volume overload secondary to above Hypertension, uncontrolled, better after being resumed on her home medications Hypertensive urgency on admission Diabetes Mellitus type 2 uncontrolled with hyperglycemia and hypoglycemia Acute on Chronic hypoxic respiratory failure on 3 to 4 L outpatient Medical noncompliance Chronic pain and nausea Patient has 2 moles she is concerned about on her left shoulder and left breast. Advised to see derm on outpatient follow up. Anemia of chronic disease GI prophylaxis Full Code Plan: Patient was resumed on her home blood pressure medications yesterday Patient underwent hemodialysis yesterday and is scheduled to receive hemo dialysis today with nephrology following. Patient will receive dialysis on her normally scheduled Wednesday and likely discharge Patient was complaining of dizziness hit head on wall while walking to the bathroom; brain CT has been completed and negative for any acute process Patient was started on aranesp yesterday Continue home blood pressure medications remain off lisinopril and entresto has been resumed. Nephrology, pulmonary critical care following the patient closely. Patient has been cleared by pulmonary Discharge home in the next 24 hours after hemodialysis on Wednesday. Overall guarded prognosis given significant comorbidities and patient is high risk for readmissions The impression and plan of care has been dictated by Margie Urbina, Nurse Practitioner as directed. Dr. Connie MD I have performed a history and physical examination and medical decision making of this patient, discussed the same with the dictator, and agree with the dictators assessment and plan as written, documented as a scribe. Based on total visit time, I have performed more than 50% of this visit. Objective - Vital Signs Vital signs: Vital Signs Temp 98.1 F 07/10/24 05:00 Pulse 78 07/10/24 08:00 Resp 16 07/10/24 08:00 BP 137/76 07/10/24 08:00 Pulse Ox 97 07/10/24 08:00 FiO2 35 07/09/24 03:11 Intake & Output 07/09/24 07/10/24 07/10/24 18:59 06:59 18:59 Intake Total 222 777 Balance 222 777 Weight 68.6 kg Intake: Oral 222 777 Other: Voiding Method Toilet Toilet # Voids 1 # Bowel Movements 1 - Labs CBC & Chem 7: 07/09/24 03:10 07/09/24 03:46 Labs: Abnormal Lab Results - Last 24 Hours (Table) 07/09/24 07/09/24 07/10/24 Range/Units 16:28 20:37 06:16 POC Glucose (mg/dL) 192 H 224 H 161 H (70-110) mg/dL
[2024-07-10 16:45] LABS: Glucose,Whole Blood 86 mg/dL (70-110)
[2024-07-10 20:11] LABS: Glucose,Whole Blood 181 mg/dL (70-110)
[2024-07-11 05:39] LABS: Glucose,Whole Blood 262 mg/dL (70-110)
[2024-07-11] MEDS: HYDROcodone/APAP 7.5-325MG 1 EACH TAB PO PRN (07:58)
--- NOTE | 2024-07-11 10:54 | P.PN ---
Subjective Patient is seen in follow-up for end-stage renal disease. She is maintained on hemodialysis 4 days a week. Tolerating dialysis well. Hemodynamically stable. No active complaints. Vital signs are stable. General: No acute distress. HEENT: Head exam is unremarkable. On nasal cannula. LUNGS: No audible rhonchi or wheezes. HEART: Rate and Rhythm are regular. ABDOMEN: Nontender. EXTREMITITES: No edema. Objective - Vital Signs Vital signs: Vital Signs Temp 98.2 F 07/11/24 07:49 Pulse 85 07/11/24 07:50 Resp 16 07/11/24 07:50 BP 151/83 07/11/24 07:49 Pulse Ox 100 07/11/24 07:49 FiO2 35 07/09/24 03:11 Intake & Output 07/10/24 07/11/24 07/11/24 18:59 06:59 18:59 Intake Total 400 20 10 Output Total 6400 300 Balance -6000 -280 10 Weight 68.6 kg 65.2 kg Intake: IV 20 10 Invasive Line 1 10 Invasive Line 3 10 10 Hemodialysis 400 Output: Emesis 300 Hemodialysis 3400 Hemodialysis Net Amount 3000 Other: Voiding Method Toilet Toilet Toilet # Voids 1 - Labs CBC & Chem 7: 07/09/24 03:10 07/09/24 03:46 Labs: Abnormal Lab Results - Last 24 Hours (Table) 07/10/24 07/10/24 07/11/24 Range/Units 11:26 20:10 05:38 POC Glucose (mg/dL) 119 H 181 H 262 H (70-110) mg/dL Assessment and Plan Plan: Assessment: 1. End-stage renal disease maintained on hemodialysis on Wednesday schedule. 2. Acute hypoxic respiratory failure secondary to volume overload. Improved with ultrafiltration. 3. Hypertension with chronic kidney disease. Stable. 4. Chronic kidney disease mineral bone disease maintained on PhosLo. Phosph orus level 3.9 dated July 09, 2024. 5. Anemia of chronic kidney disease maintained on Aranesp. 6. Diabetes mellitus. Plan: Currently seen while undergoing hemodialysis. Next treatment .
--- NOTE | 2024-07-11 11:19 | P.PN ---
Subjective Progress Note Date: 07/11/24 Principal diagnosis: Shortness of breath. The patient is seen today July 09, 2024 and follow-up on the regular medical floor. She is sitting up in bed. Awake and alert in no acute distress. She is maintaining O2 saturations up to 100% on 2 L/min per nasal cannula. She has been afebrile. Hemodynamically stable. White count 10.2. Hemoglobin 9.1. Platelets 336. Sodium 132. Potassium 4.2. Bicarb 26. BUN 10. Creatinine 2.92. Glucose 238. She remains on heparin for DVT prophylaxis. Progress note dated July 10, 2024. 34-year-old female seen today in room 370. The patient is currently on 3 L by nasal cannula. The patient did not use the BiPAP device. The patient is scheduled to have hemodialysis today. The patient is not receiving any IV fluids currently. No new labs today, other than a glucose of 119. Progress note dated July 11, 2024. 34-year-old female seen today in room 370. The patient is currently undergoing hemodialysis. Yesterday, she had 3 L removed. Today, the goal was 3.5 L. The patient continues on oxygen, at 3 L. The patient is laying flat in bed, without any respiratory distress or difficulty. The patient is not receiving any IV fluids. Current laboratory data includes only a glucose of 262. Objective - Vital Signs Vital signs: Vital Signs Temp 98.2 F 07/11/24 07:49 Pulse 85 07/11/24 07:50 Resp 16 07/11/24 07:50 BP 151/83 07/11/24 07:49 Pulse Ox 100 07/11/24 07:49 FiO2 35 07/09/24 03:11 Intake & Output 07/10/24 07/11/24 07/11/24 18:59 06:59 18:59 Intake Total 400 20 370 Output Total 6400 300 Balance -6000 -280 370 Weight 68.6 kg 65.2 kg Intake: IV 20 10 Invasive Line 1 10 Invasive Line 3 10 10 Oral 360 Hemodialysis 400 Output: Emesis 300 Hemodialysis 3400 Hemodialysis Net Amount 3000 Other: Voiding Method Toilet Toilet Toilet # Voids 1 - Exam No acute distress, oriented 3. Currently on 3 L of oxygen. HEENT examination is grossly unremarkable. Mucous membranes are moist. No oral lesions. Neck supple. Full range of motion. No adenopathy thyromegaly or neck vein distention. Cardiovascular examination reveals regular rhythm rate. S1-S2 normal. No S3 or S4. No discernible murmur noted. Lungs reveal clear breath sounds. Breath sounds are equal bilaterally. No adventitious lung sounds including wheezes rhonchi or crackles. Abdomen soft bowel sounds are heard. No masses or tenderness. Extremities are intact. No cyanosis clubbing or edema. Skin is without rash or lesion. Neurologic examination is brief but nonfocal. - Labs CBC & Chem 7: 07/09/24 03:10 07/09/24 03:46 Labs: Abnormal Lab Results - Last 24 Hours (Table) 07/10/24 07/10/24 07/11/24 Range/Units 11:26 20:10 05:38 POC Glucose (mg/dL) 119 H 181 H 262 H (70-110) mg/dL Assessment and Plan Assessment: Acute on chronic hypoxemic respiratory failure, secondary to pulmonary edema. End-stage renal disease, maintained on 3 times a week hemodialysis. Anemia of chronic disease. Benign essential hypertension. Diabetes mellitus. Plan: Plan dated July 10, 2024. The patient appears to be doing relatively well. She sitting up the bed, on nasal O2. No respiratory distress. The patient is scheduled to have hemod ialysis today. Labs, x-rays, and medications are reviewed. From the pulmonary standpoint, the patient is cleared for discharge. She is not describing any new or worsening shortness of breath, cough, wheezing, chest tightness, or phlegm production. Plan dated July 11, 2024. Labs, x-rays, and all medications have been reviewed. The patient is currently receiving hemodialysis. She had hemodialysis yesterday, wherein 3 L of fluid was removed. The goal for hemodialysis today is 3.5 L. We will continue to follow make recommendations. Her respiratory status is stable. No additional recommendations are made at this time. Time with Patient: Less than 30
[2024-07-11 11:55] LABS: Glucose,Whole Blood 115 mg/dL (70-110)
[2024-07-11 13:22] VITALS: BP 133/75; PULSE 81; RESP 18; TEMP 97.6
--- NOTE | 2024-07-11 14:59 | P.DS ---
Providers Date of admission: 07/03/24 05:39 Expected date of discharge: 07/11/24 Attending physician: Dahiana Chan Consults: 07/03/24 05:00 Consult Physician Routine Consulting Provider: Jamal Seay Consult Reason/Comments: Hypertensive emergency Do you want consulting provider notified?: Already Contacted Primary care physician: Physician Nonstaff Hospital Course: Final diagnosis End stage renal disease maintained on hemodialysis Acute pulmonary edema. volume overload secondary to above Hypertension, uncontrolled, better after being resumed on her home medications Hypertensive urgency on admission Diabetes Mellitus type 2 uncontrolled with hyperglycemia and hypoglycemia Acute on Chronic hypoxic respiratory failure on 3 to 4 L outpatient Medical noncompliance Chronic pain and nausea Patient has 2 moles she is concerned about on her left shoulder and left breast. Advised to see derm on outpatient follow up. Anemia of chronic disease GI prophylaxis Full Code Discharge disposition Patient is being discharged in a stable condition with guarded prognosis to home. Patient will follow-up in the outpatient setting upon discharge to establish as patient has not followed up and established with a primary care provider. Patient is to continue with hemodialysis as scheduled and next dose being on as patient is on Wednesday/Wednesday//Wednesday. Follow-up with nephrology outpatient. Total time taken is greater than 35 minutes. Hospital course This is a 34-year-old female who was recently admitted with increasing shortness of breath with significant volume overload with acute pulmonary edema. Patient has had prolonged hospitalization being followed by cardiology along with pulmonary and nephrology. Patient is continued on hemodialysis 4 times weekly with end-stage renal disease and is receiving dialysis again today. Patient's next session is on at her normally scheduled days recommending outpatient follow-up with nephrology. Patient has yet to follow-up and establish with a primary care provider as patient has had multiple hospitalizations and ER visits regarding significant comorbidities and continued shortness of breath with volume overload. Patient is extremely noncompliant to follow-up and has been discharged from previous practices due to noncompliance. Patient continues to have nausea which is chronic and also chronic pain. All medications reviewed and resumed as appropriate and refills on all these medications have been sent to the pharmacy. Patient with acute on chronic hypoxic respiratory failure chronically wears 3 L and is maintained on that. Patient has been cleared by consultations recommending outpatient follow-up. Please refer to other consultation notes for further HPI. Currently no reports of chest pain, shortness of breath, or palpitations. Patient is afebrile. Patient continues to have reports of nausea and not tolerating much oral intake. This is chronic and patient has been instructed to follow-up with GI along with establishing with a primary care provider on multiple hospitalizations prior to this. Patient has had 17 hospitalizations this year. Patient will be discharged home today. Guarded prognosis given significant comorbidities and noncompliance and is extremely high risk for rehospitalization. Physical exam: Gen: This is a 34-year-old female who is awake, alert and oriented x 3, well- developed, elderly appearing, ill-appearing HEENT: Head is atraumatic, normocephalic. Pupils equal, round. Sclerae is anicteric. NECK: Supple. No JVD. No lymphadenopathy. No thyromegaly. LUNGS: Diminished breath sounds bilaterally otherwise clear to auscultation. No wheezes or rhonchi. No intercostal retractions. HEART: S1, S2 are muffled ABDOMEN: Soft. Bowel sounds are present. No masses. No tenderness. EXTREMITIES: No pedal edema. No calf tenderness. NEUROLOGICAL: Patient is awake, alert and oriented x3. Cranial nerves 2 through 12 are grossly intact. Diffusely weak Please refer to medication reconciliation sheet for a list of medications. The impression and plan of care has been dictated by Margie Urbina, Nurse Practitioner as directed. Dr. Connie MD I have performed a history and examination and MDM of this patient, discussed the same with the dictator, and agree with the dictator's assessment and plan as written ,documented as a scribe. Based on total visit time, I have performed more than 50% of the visit. Patient Condition at Discharge: Fair Plan - Discharge Summary New Discharge Prescriptions: New hydrALAZINE HCL [Apresoline] 150 mg PO QID 30 Days #360 tab cloNIDine HCL [Catapres] 0.3 mg PO TID #270 tab Labetalol [Trandate] 200 mg PO BID #60 tab Folic Acid-Vit B Complex-Vit C [Nephrocaps] 1 each PO HS #30 cap HYDROcodone/APAP 7.5-325MG [Parmele 7.5-325] 1 each PO Q8H PRN #6 tab PRN Reason: Pain Famotidine [Pepcid] 20 mg PO BID #60 tab ALPRAZolam [Xanax] 0.25 mg PO BID PRN tab PRN Reason: Anxiety Continue bisacodyL [Dulcolax] 10 mg RECTAL DAILY PRN PRN Reason: Constipation Magnesium Hydroxide [Milk of Magnesia Concentrate] 7,200 mg PO DAILY PRN PRN Reason: Constipation Lidocaine 4% Patch 1 patch TOPICAL DAILY@0800 Ipratropium-Albuterol Nebulize [Duoneb 0.5 mg-3 mg/3 ml Soln] 3 ml INHALATION RT-TID PRN each PRN Reason: Shortness Of Breath Or Wheezing Biotene Dry Mouth/Throat 10 ml PO BID PRN PRN Reason: DRY MOUTH/THROAT Acetaminophen [Tylenol] 650 mg PO Q4H PRN PRN Reason: Pain Or Fever > 100.5 Darbepoetin Artur [Aranesp] 40 mcg SQ MO Loratadine [Claritin] 5 mg PO DAILY tab INSULIN ASPART (NovoLOG) [NovoLOG (formulary)] See Protocol SQ ACHS Divalproex ER [Depakote ER] 500 mg PO BID@0800,1700 #60 tab traZODone HCL [Desyrel] 50 mg PO HS #30 tab Sacubitril/Valsartan [Entresto 49 mg-51 mg Tablet] 1 tab PO BID #60 tab NIFEdipine XL [Procardia XL] 60 mg PO BID@0800,1700 #60 tab Augustine Caps 1 cap PO HS@2100 #30 methocarbamoL [Robaxin-750] 750 mg PO QID@02,06,12,17 #30 tab Ondansetron [Zofran] 4 mg PO Q8HR PRN #20 tab PRN Reason: Nausea And Vomiting Sertraline [Zoloft] 200 mg PO DAILY@0800 #60 tab Docusate [Colace] 100 mg PO DAILY@0800 polyethylene glycoL 3350 [Miralax] 17 gm PO AC-LUNCH #527 gm Melatonin 1 mg PO HS tab Butalb/APAP/Caff 50-325-40Mg [Fioricet 50-325-40] 1 tab PO Q4HR PRN PRN Reason: Headache Aspirin 81 mg PO DAILY@0800 #30 tab Isosorbide Mononitrate ER [Imdur] 30 mg PO DAILY #30 tab Atorvastatin [Lipitor] 40 mg PO HS@2100 #30 tab Pantoprazole [Protonix] 40 mg PO DAILY@0600 #30 tab Sevelamer [Renvela] 1,600 mg PO AC-TID@1630 #180 tab Sevelamer [Renvela] 800 mg PO HS #30 tab Levothyroxine Sodium [Synthroid] 175 mcg PO DAILY@0600 #30 tab Changed Insulin Glargine [Lantus Vial] 12 unit SQ BID #1 each Metoclopramide [Reglan] 5 mg PO AC-TID PRN #30 tab PRN Reason: Nausea Discontinued carvediloL [Coreg] 25 mg PO BID-W/MEALS #60 tablet hydrALAZINE HCL [Apresoline] 150 mg PO TID #300 tab cloNIDine HCL [Catapres] 0.1 mg PO BID 60 Days #90 tab ALPRAZolam [Xanax] 0.5 mg PO BID PRN #4 tab PRN Reason: Anxiety Acetaminophen-Codeine 300-30mg [Tylenol w/codeine #3] 1 tab PO Q6HR PRN 3 Days #12 tab PRN Reason: Pain Discharge Medication List Docusate [Colace] 100 mg PO DAILY@0800 02/05/24 [History] Lidocaine 4% Patch 1 patch TOPICAL DAILY@0802/05/24 [History] Magnesium Hydroxide [Milk of Magnesia Concentrate] 7,200 mg PO DAILY PRN 02/05/24 [History] bisacodyL [Dulcolax] 10 mg RECTAL DAILY PRN 02/05/24 [History] Ipratropium-Albuterol Nebulize [Duoneb 0.5 mg-3 mg/3 ml Soln] 3 ml INHALATION RT-TID PRN each 02/14/24 [Rx] polyethylene glycoL 3350 [Miralax] 17 gm PO AC-LUNCH #527 gm 02/14/24 [Rx] Acetaminophen [Tylenol] 650 mg PO Q4H PRN 02/18/24 [History] Biotene Dry Mouth/Throat 10 ml PO BID PRN 02/18/24 [History] Melatonin 1 mg PO HS tab 02/25/24 [Rx] Butalb/APAP/Caff 50-325-40Mg [Fioricet 50-325-40] 1 tab PO Q4HR PRN 03/14/24 [History] Darbepoetin Artur [Aranesp] 40 mcg SQ MO 03/14/24 [History] Loratadine [Claritin] 5 mg PO DAILY tab 03/30/24 [Rx] INSULIN ASPART (NovoLOG) [NovoLOG (formulary)] See Protocol SQ ACHS 04/16/24 [History] Aspirin 81 mg PO DAILY@0800 #30 tab 05/18/24 [Rx] ALPRAZolam [Xanax] 0.25 mg PO BID PRN tab 07/11/24 [Rx] Atorvastatin [Lipitor] 40 mg PO HS@2100 #30 tab 07/11/24 [Rx] Divalproex ER [Depakote ER] 500 mg PO BID@0800,1700 #60 tab 07/11/24 [Rx] Famotidine [Pepcid] 20 mg PO BID #60 tab 07/11/24 [Rx] Folic Acid-Vit B Complex-Vit C [Nephrocaps] 1 each PO HS #30 cap 07/11/24 [Rx] HYDROcodone/APAP 7.5-325MG [Parmele 7.5-325] 1 each PO Q8H PRN #6 tab 07/11/24 [Rx] Insulin Glargine [Lantus Vial] 12 unit SQ BID #1 each 07/11/24 [Rx] Isosorbide Mononitrate ER [Imdur] 30 mg PO DAILY #30 tab 07/11/24 [Rx] Labetalol [Trandate] 200 mg PO BID #60 tab 07/11/24 [Rx] Levothyroxine Sodium [Synthroid] 175 mcg PO DAILY@0600 #30 tab 07/11/24 [Rx] Metoclopramide [Reglan] 5 mg PO AC-TID PRN #30 tab 07/11/24 [Rx] NIFEdipine XL [Procardia XL] 60 mg PO BID@0800,1700 #60 tab 07/11/24 [Rx] Ondansetron [Zofran] 4 mg PO Q8HR PRN #20 tab 07/11/24 [Rx] Pantoprazole [Protonix] 40 mg PO DAILY@0600 #30 tab 07/11/24 [Rx] Titus Caps 1 cap PO HS@2100 #30 07/11/24 [Rx] Sacubitril/Valsartan [Entresto 49 mg-51 mg Tablet] 1 tab PO BID #60 tab 07/11/24 [Rx] Sertraline [Zoloft] 200 mg PO DAILY@0800 #60 tab 07/11/24 [Rx] Sevelamer [Renvela] 1,600 mg PO AC-TID@07,11,1630 #180 tab 07/11/24 [Rx] Sevelamer [Renvela] 800 mg PO HS #30 tab 07/11/24 [Rx] cloNIDine HCL [Catapres] 0.3 mg PO TID #270 tab 07/11/24 [Rx] hydrALAZINE HCL [Apresoline] 150 mg PO QID 30 Days #360 tab 07/11/24 [Rx] methocarbamoL [Robaxin-750] 750 mg PO QID@02,06,12,17 #30 tab 07/11/24 [Rx] traZODone HCL [Desyrel] 50 mg PO HS #30 tab 07/11/24 [Rx] Follow up Appointment(s)/Referral(s): Charlene Lim MD [STAFF PHYSICIAN] - 1 Week Activity/Diet/Wound Care/Special Instructions: Activity limited until follow-up Follow-up with primary care provider on discharge Follow-up cardiology outpatient Follow-up nephrology outpatient Continue with Wednesday/Wednesday//Wednesday dialysis Discharge/Stand Alone Forms: Area PCPs Discharge Disposition: HOME SELF-CARE
--- NOTE | 2024-07-31 14:50 | XR ---
Marita Perrin ID: [id number] : 1990 EXAMINATION TYPE: XR chest 1V DATE OF EXAM: 07/04/2024 COMPARISON: 05/15/2024, 07/03/2024 HISTORY: 34-year-old female ICU follow-up, shortness of breath TECHNIQUE: Single frontal view of the chest is obtained. FINDINGS: Right-sided double-lumen hemodialysis catheter tips at the right atrium. Cardiac/pericardi ac silhouette remains borderline enlarged. Diffuse interstitial and bilateral patchy airspace opaciti es persist but show some interval improvement especially in the mid and lower lungs. Possible trace r ight effusion. IMPRESSION: Persistent but improving pulmonary edema. Predominantly interstitial pulmonary edema on t he present exam.
--- NOTE | 2024-08-11 12:37 | CT ---
EXAM: CT Head Without Intravenous Contrast CLINICAL HISTORY: hit head on wall today. TECHNIQUE: Axial computed tomography images of the head/brain without intravenous contrast. CTDI is 49.2 mGy and DLP is 1095.4 mGy-cm. This CT examwas performed using one or more of the following dose reduction techniques: automated exposure control, adjustment of the mA and/or kV according to patient size, and/or use of iterative reconstruction technique. COMPARISON: No relevant prior studies available. FINDINGS: Brain:Unremarkable. No hemorrhage. No significant white matter disease. No edema. Ventricles:Unremarkable. No ventriculomegaly. Bones/joints:Unremarkable. No acute fracture. Soft tissues:Unremarkable. Sinuses:Unremarkable as visualized. No acute sinusitis. Mastoid air cells:Unremarkable as visualized. No mastoid effusion. IMPRESSION: Normal head/brain CT. Radiologist: Aaron Medina MD Electronically Signed: 07/09/24 06:08 Study ready at 05:50 and initial results transmitted at 06:08 [facility]
--- NOTE | 2024-08-11 12:39 | XR ---
EXAM: XR Chest, 1 View CLINICAL HISTORY: WAQAR, PT ON BIPAP TECHNIQUE: Frontal view of the chest. COMPARISON: No relevant prior studies available. FINDINGS: Lungs: Patchy to confluent airspace opacities in the perihilar regions and mid to lower lung zones. The pulmonary vasculature appears prominent and somewhat equalized. Pleural space:No large pleural effusions with mild blunting of the left costophrenic margin. Heart: The cardiac silhouette is partially obscured but thought to be within normal limits. Mediastinum: The mediastinal contours are grossly unremarkable. The trachea is midline. Bones/joints:Unremarkable. No acute fracture. Tubes, lines and devices:Aright internal jugular approach tunneled hemodialysis catheter is noted with the tip in the superior right atrium. IMPRESSION: Patchy to confluent airspace opacities in the perihilar regions and mid to lower lung zones. The pulmonary vasculature appears prominent and somewhat equalized. Favor florid CHF over diffuse bilateral pneumonia. Please correlate clinically. Small left pleural effusion. No pneumothorax. Radiologist: Grey Verdugo MD Electronically Signed: 07/03/24 04:26 Study ready at 02:51 and initial results transmitted at 0 MTDD
== END 2024-07-11 15:49 | disposition home or self-care (01) | DRG 143 ==
LOC: 3SCARD 05:00 → UNDOADMIN 07-03 05:39 → 3SCARD 07-03 05:39 → UNDODISIN 07-11 15:49
PROVIDERS: ADMIT Hospitalist; ATTEND Hospitalist
PROC: 5A1D70Z Performance of Urinary Filtration, Intermittent, Less than 6 Hours Per Day (ICD-10-PCS; principal; 2024-07-10)
DX: J81.0 Acute pulmonary edema (principal); F17.200 Nicotine dependence, unspecified, uncomplicated; D63.1 Anemia in chronic kidney disease; E11.22 Type 2 diabetes mellitus with diabetic chronic kidney disease; E11.65 Type 2 diabetes mellitus with hyperglycemia; E11.43 Type 2 diabetes mellitus with diabetic autonomic (poly)neuropathy; K31.84 Gastroparesis; G89.29 Other chronic pain; I12.0 Hypertensive chronic kidney disease with stage 5 chronic kidney disease or end stage renal disease; I16.1 Hypertensive emergency; J96.21 Acute and chronic respiratory failure with hypoxia; E83.9 Disorder of mineral metabolism, unspecified; N18.6 End stage renal disease; W22.01XA Walked into wall, initial encounter; Z91.199 Patient's noncompliance with other medical treatment and regimen due to unspecified reason; Z99.2 Dependence on renal dialysis
CPT/HCPCS: 70450; 71045; 80048; 83735; 84100; 85025; 90935; 93005; 94660; 94760; 96374; 96375; 99291

== ENCOUNTER 2024-08-14 04:39 | Inpatient (IN) | payer OTHER ==
[2024-08-14] MEDS: MORPHINE SULFATE 4 MG/ML SYRINGE IV STA (04:55)
[2024-08-14] MEDS: NITROGLYCERIN-D5W PMX 50 MG in DEXTROSE/WATER 1 250ML.BAG IV ONE (04:59)
--- NOTE | 2024-08-14 05:08 | XR ---
EXAM: XR Chest, 1 View CLINICAL HISTORY: ITS.REASON XR Reason: dyspnea TECHNIQUE: Frontal view of the chest. COMPARISON: No relevant prior studies available. IMPRESSION: Severe pulmonary edema
[2024-08-14 05:19] LABS: Anisocytosis Slight; Basophils # (A) 0.1 k/uL (0-0.2); Basophils % (A) 1 %; Eosinophils # (A) 0.8 k/uL (0-0.7); Eosinophils % (A) 4 %; HCT 39.8 % (34.0-46.0); Lymphocytes # (A) 1.5 k/uL (1.0-4.8); Lymphocytes % (A) 8 %; MCHC 32.1 g/dL (31.0-37.0); MCV 99.7 fL (80.0-100.0); Macrocytosis Moderate; Mean Platelet Volume 8.4; Monocytes # (A) 0.3 k/uL (0-1.0); Monocytes % (A) 2 %; Neutrophils # (A) 15.8 k/uL (1.3-7.7); Neutrophils % (A) 85 %; Platelet Count 443 k/uL (150-450); RBC 3.99 m/uL (3.80-5.40); RDW 19.4 % (11.5-15.5); WBC 18.5 k/uL (3.8-10.6)
[2024-08-14 05:21] LABS: HGB 12.8 gm/dL (11.4-16.0)
--- NOTE | 2024-08-14 05:23 | ED ---
SOB HPI - General Chief Complaint: Shortness of Breath Stated Complaint: WAQAR Time Seen by Provider: 08/14/24 04:44 Source: EMS Mode of arrival: EMS Limitations: no limitations - History of Present Illness Initial Comments: This patient is a 34-year-old woman with history of diabetes, renal failure on hemodialysis, and previous congestive heart failure. The patient takes dialysis 4 times per week her last session was Wednesday. The patient states that over the past few hours she has become increasingly short of breath. No fever or chills noted. No productive cough. MD Complaint: shortness of breath Onset/Timin -: hour(s) Severity: mild Quality: other (Tight) Consistency: constant Improves With: nothing Worsens With: lying flat Known History Of: congestive heart failure, diabetes, other (Kidney failure) Treatments Prior to Arrival: oxygen, bronchodilator - Related Data Home Oxygen Therapy: No Home Medications Medication Instructions Recorded Confirmed Docusate [Colace] 100 mg PO DAILY@0800 02/05/24 08/14/24 Lidocaine 4% Patch 1 patch TOPICAL DAILY@79902/05/24 08/14/24 Magnesium Hydroxide [Milk of 7,200 mg PO DAILY PRN 02/05/24 08/14/24 Magnesia Concentrate] bisacodyL [Dulcolax] 10 mg RECTAL DAILY PRN 02/05/24 08/14/24 Acetaminophen [Tylenol] 650 mg PO Q4H PRN 02/18/24 08/14/24 Biotene Dry Mouth/Throat 10 ml PO BID PRN 02/18/24 08/14/24 Butalb/APAP/Caff 50-325-40Mg 1 tab PO Q4HR PRN 03/14/24 08/14/24 [Fioricet 50-325-40] Darbepoetin Artur [Aranesp] 40 mcg SQ MO 03/14/24 08/14/24 INSULIN ASPART (NovoLOG) [NovoLOG See Protocol SQ ACHS 04/16/24 08/14/24 (formulary)] ALPRAZolam [Xanax] 0.25 mg PO DIRECTED PRN 08/14/24 08/14/24 Atorvastatin [Lipitor] 40 mg PO DIRECTED 08/14/24 08/14/24 Divalproex ER [Depakote ER] 500 mg PO DIRECTED 08/14/24 08/14/24 Folic Acid-Vit B Complex-Vit C 1 cap PO DIRECTED 08/14/24 08/14/24 [Nephrocaps] HYDROcodone/APAP 7.5-325MG [[place] 1 tab PO DIRECTED PRN 08/14/24 08/14/24 7.5-325] Levothyroxine Sodium [Synthroid] 175 mcg PO DIRECTED 08/14/24 08/14/24 Metoclopramide [Reglan] 5 mg PO DIRECTED PRN 08/14/24 08/14/24 Pantoprazole [Protonix] 40 mg PO DIRECTED 08/14/24 08/14/24 [place] Caps 1 cap PO DIRECTED 08/14/24 08/14/24 Sertraline [Zoloft] 200 mg PO DIRECTED 08/14/24 08/14/24 Sevelamer [Renvela] 1,600 mg PO DIRECTED 08/14/24 08/14/24 cloNIDine HCL [Catapres] 0.3 mg PO DIRECTED 08/14/24 08/14/24 hydrALAZINE HCL [Apresoline] 150 mg PO DIRECTED 08/14/24 08/14/24 methocarbamoL [Robaxin-750] 750 mg PO DIRECTED 08/14/24 08/14/24 traZODone HCL [Desyrel] 50 mg PO DIRECTED 08/14/24 08/14/24 Previous Rx's Medication Instructions Recorded Ipratropium-Albuterol Nebulize 3 ml INHALATION RT-TID PRN each 02/14/24 [Duoneb 0.5 mg-3 mg/3 ml Soln] polyethylene glycoL 3350 [Miralax] 17 gm PO AC-LUNCH #527 gm 02/14/24 Melatonin 1 mg PO HS tab 02/25/24 Loratadine [Claritin] 5 mg PO DAILY tab 03/30/24 Aspirin 81 mg PO DAILY@0800 #30 tab 05/18/24 Famotidine [Pepcid] 20 mg PO BID #60 tab 07/11/24 Insulin Glargine [Lantus Vial] 12 unit SQ BID #1 each 07/11/24 Ondansetron [Zofran] 4 mg PO Q8HR PRN #20 tab 07/11/24 Sevelamer [Renvela] 800 mg PO HS #30 tab 07/11/24 Amoxic-Pot Clav 875-125Mg 1 tab PO Q12HR 5 Days #10 tab 08/24/24 [Augmentin 875-125] Isosorbide Mononitrate ER [Imdur] 30 mg PO DIRECTED 30 Days #30 08/24/24 tab Labetalol [Trandate] 200 mg PO BID 30 Days #60 tab 08/24/24 Sacubitril/Valsartan [Entresto 49 1 each PO BID 30 Days #60 tab 08/24/24 mg-51 mg Tablet] amLODIPine [Norvasc] 10 mg PO DAILY 30 Days #30 tab 08/24/24 Allergies Allergy/AdvReac Type Severity Reaction Status Date / Time hydromorphone HCl Allergy Anaphylaxis Verified 08/14/24 09:55 [From Dilaudid] propoxyphene Allergy Rash/Hives Verified 08/14/24 09:55 [From Darvocet-N] tramadol Allergy Anaphylaxis Verified 08/14/24 09:55 ibuprofen [From Motrin] AdvReac unable to Verified 08/14/24 09:55 take due to kidney disease venom-honey bee AdvReac passes out Verified 08/14/24 09:55 [bee venom (honey bee)] Review of Systems ROS Statement: Those systems with pertinent positive or pertinent negative responses have been documented in the HPI. ROS Other: All systems not noted in ROS Statement are negative. Constitutional: Denies: fever, chills ENT: Denies: congestion Respiratory: Reports: dyspnea. Denies: cough, hemoptysis Cardiovascular: Reports: palpitations, orthopnea. Denies: chest pain, syncope Gastrointestinal: Denies: abdominal pain, vomiting, diarrhea Musculoskeletal: Denies: back pain Skin: Denies: rash Neurological: Denies: headache, weakness Psychiatric: Reports: anxiety Past Medical History Past Medical History: Diabetes Mellitus, GERD/Reflux, Hypertension, Renal Disease, Seizure Disorder, Thyroid Disorder Additional Past Medical History / Comment(s): Neuropathy, last seizure 2020, gastroparesis, headaches with dialysis, states "fast heart rate" since giving b irth., receives Hemodialysis Wednesday- and Saturdays at [facility] [place] right chest hemodialysis catheter., severe HTN. patient awaiting Kidney and Pancrease Transplant. , states sometimes she has had stroke -like symptoms but no stroke., hx of c-diff 2013. History of Any Multi-Drug Resistant Organisms: None Reported Date of last positivie culture/infection: None MDRO Source:: None Past Surgical History: Adenoidectomy, Section, Cholecystectomy, Orthopedic Surgery, Tonsillectomy Additional Past Surgical History / Comment(s): 2 KNEE SCOPES, EAR TUBES, additional left knee surgery related to fracture, new port a cath sept , eye surgeries for diabetic retinopathy. Past Anesthesia/Blood Transfusion Reactions: Previous Problems w/ Anesthesia Additional Past Anesthesia/Blood Transfusion Reaction / Comment(s): confusion Past Psychological History: Anxiety, Depression Smoking Status: Former smoker Past Alcohol Use History: None Reported Past Drug Use History: Marijuana, Methamphetamine - Past Family History Father History Unknown: Yes Family Medical History: Unable to Obtain Mother History Unknown: Yes Family Medical History: No Reported History Grandfather History Unknown: Yes Family Medical History: Coronary Artery Disease (CAD) Additional Family Medical History / Comment(s): Diabetes mellitus type 2 General Exam Limitations: no limitations General appearance: alert, in distress Head exam: Present: atraumatic, normocephalic Eye exam: Present: normal appearance Neck exam: Present: normal inspection Respiratory exam: Present: respiratory distress, rales, accessory muscle use Cardiovascular Exam: Present: normal rhythm, tachycardia, systolic murmur. Absent: bradycardia, diastolic murmur, rubs, gallop GI/Abdominal exam: Present: soft. Absent: distended, tenderness, guarding, rebound, mass, pulsatile mass Extremities exam: Present: normal inspection, normal capillary refill. Absent: pedal edema, calf tenderness Back exam: Present: normal inspection Neurological exam: Present: alert Skin exam: Present: warm, intact, normal color, diaphoretic. Absent: rash Course Vital Signs 08/14/24 08/14/24 08/14/24 04:41 04:46 04:48 Temperature 97.4 F L Pulse Rate 148 H 140 H Pulse Rate [ Physical Science Aide ] Respiratory 28 H 23 Rate Blood Pressure 249/157 204/144 Blood Pressure [Left Arm] O2 Sat by Pulse 90 L 95 Oximetry Fraction of 40 Inspired Oxygen (FIO2) 08/14/24 08/14/24 08/14/24 04:49 05:10 05:15 Temperature Pulse Rate 112 H 109 H Pulse Rate [ Physical Science Aide ] Respiratory 26 H 11 L Rate Blood Pressure 198/130 217/130 Blood Pressure [Left Arm] O2 Sat by Pulse 95 96 Oximetry Fraction of 40 Inspired Oxygen (FIO2) 08/14/24 08/14/24 08/14/24 05:20 05:25 05:30 Temperature Pulse Rate 102 H 100 98 Pulse Rate [ Physical Science Aide ] Respiratory 23 24 23 Rate Blood Pressure 194/125 197/119 200/123 Blood Pressure [Left Arm] O2 Sat by Pulse 95 95 95 Oximetry Fraction of Inspired Oxygen (FIO2) 08/14/24 08/14/24 08/14/24 05:35 05:40 05:45 Temperature Pulse Rate 96 95 96 Pulse Rate [ Physical Science Aide ] Respiratory 23 22 22 Rate Blood Pressure 194/124 190/121 196/121 Blood Pressure [Left Arm] O2 Sat by Pulse 95 94 L 95 Oximetry Fraction of Inspired Oxygen (FIO2) 08/14/24 08/14/24 08/14/24 05:50 05:55 06:00 Temperature Pulse Rate 99 94 93 Pulse Rate [ Physical Science Aide ] Respiratory 20 22 21 Rate Blood Pressure 188/117 186/128 199/120 Blood Pressure [Left Arm] O2 Sat by Pulse 95 96 95 Oximetry Fraction of Inspired Oxygen (FIO2) 08/14/24 08/14/24 08/14/24 06:05 06:10 06:15 Temperature Pulse Rate 98 93 95 Pulse Rate [ Physical Science Aide ] Respiratory 15 19 20 Rate Blood Pressure 198/120 191/116 191/114 Blood Pressure [Left Arm] O2 Sat by Pulse 95 97 96 Oximetry Fraction of Inspired Oxygen (FIO2) 08/14/24 08/14/24 08/14/24 06:20 06:25 06:30 Temperature Pulse Rate 101 H 96 96 Pulse Rate [ Physical Science Aide ] Respiratory 21 22 20 Rate Blood Pressure 190/120 189/117 183/118 Blood Pressure [Left Arm] O2 Sat by Pulse 96 96 97 Oximetry Fraction of Inspired Oxygen (FIO2) 08/14/24 08/14/24 08/14/24 06:35 06:40 06:45 Temperature Pulse Rate 96 93 90 Pulse Rate [ Physical Science Aide ] Respiratory 21 20 21 Rate Blood Pressure 182/118 184/116 180/115 Blood Pressure [Left Arm] O2 Sat by Pulse 97 97 97 Oximetry Fraction of Inspired Oxygen (FIO2) 08/14/24 08/14/24 08/14/24 06:50 06:55 07:00 Temperature Pulse Rate 93 93 107 H Pulse Rate [ Physical Science Aide ] Respiratory 22 21 14 Rate Blood Pressure 182/109 187/114 185/115 Blood Pressure [Left Arm] O2 Sat by Pulse 97 97 95 Oximetry Fraction of Inspired Oxygen (FIO2) 08/14/24 08/14/24 08/14/24 07:27 08:00 08:20 Temperature 98.5 F Pulse Rate 90 95 89 Pulse Rate [ Physical Science Aide ] Respiratory 22 22 18 Rate Blood Pressure 186/110 175/103 190/111 Blood Pressure [Left Arm] O2 Sat by Pulse 97 98 97 Oximetry Fraction of Inspired Oxygen (FIO2) 08/14/24 08/14/24 08/14/24 08:25 08:38 09:12 Temperature Pulse Rate 89 Pulse Rate [ Physical Science Aide ] Respiratory 22 Rate Blood Pressure 185/109 Blood Pressure [Left Arm] O2 Sat by Pulse 100 99 Oximetry Fraction of 40 40 Inspired Oxygen (FIO2) 08/14/24 08/14/24 08/14/24 09:31 09:45 10:02 Temperature Pulse Rate 80 90 Pulse Rate [ Physical Science Aide ] Respiratory 22 22 Rate Blood Pressure 180/107 166/95 166/95 Blood Pressure [Left Arm] O2 Sat by Pulse 99 98 Oximetry Fraction of Inspired Oxygen (FIO2) 08/14/24 08/14/24 08/14/24 10:43 11:01 13:00 Temperature Pulse Rate 82 Pulse Rate [ 88 Physical Science Aide ] Respiratory 18 17 Rate Blood Pressure 144/87 Blood Pressure 191/104 [Left Arm] O2 Sat by Pulse 98 Oximetry Fraction of 40 Inspired Oxygen (FIO2) 08/14/24 08/14/24 08/14/24 13:08 14:40 15:01 Temperature Pulse Rate 88 83 88 Pulse Rate [ Physical Science Aide ] Respiratory 20 20 20 Rate Blood Pressure 179/91 202/113 197/106 Blood Pressure [Left Arm] O2 Sat by Pulse 100 100 100 Oximetry Fraction of Inspired Oxygen (FIO2) 08/14/24 08/14/24 08/14/24 16:35 18:20 18:53 Temperature Pulse Rate 88 98 93 Pulse Rate [ Physical Science Aide ] Respiratory 10 L 22 22 Rate Blood Pressure 198/104 209/122 181/106 Blood Pressure [Left Arm] O2 Sat by Pulse 99 98 99 Oximetry Fraction of Inspired Oxygen (FIO2) 08/14/24 08/14/2408/14/24 19:00 19:01 19:05 Temperature Pulse Rate 97 99 101 H Pulse Rate [ Physical Science Aide ] Respiratory 28 H 22 11 L Rate Blood Pressure 187/107 175/99 175/99 Blood Pressure [Left Arm] O2 Sat by Pulse 99 100 99 Oximetry Fraction of Inspired Oxygen (FIO2) 08/14/24 08/14/24 08/14/24 19:06 19:10 19:11 Temperature Pulse Rate 102 H 101 H 101 H Pulse Rate [ Physical Science Aide ] Respiratory 22 11 L 22 Rate Blood Pressure 148/84 137/79 146/83 Blood Pressure [Left Arm] O2 Sat by Pulse 99 99 100 Oximetry Fraction of Inspired Oxygen (FIO2) 08/14/24 08/14/24 08/14/24 19:15 19:20 19:25 Temperature Pulse Rate 96 105 H 98 Pulse Rate [ Physical Science Aide ] Respiratory 10 L 15 8 L Rate Blood Pressure 144/90 149/86 153/89 Blood Pressure [Left Arm] O2 Sat by Pulse 99 99 99 Oximetry Fraction of Inspired Oxygen (FIO2) 08/14/24 08/14/24 08/14/24 19:30 19:35 19:40 Temperature Pulse Rate 92 97 101 H Pulse Rate [ Physical Science Aide ] Respiratory 8 L 6 L 10 L Rate Blood Pressure 153/86 147/83 162/90 Blood Pressure [Left Arm] O2 Sat by Pulse 100 98 99 Oximetry Fraction of Inspired Oxygen (FIO2) 08/14/24 08/14/24 08/14/24 19:45 19:50 19:55 Temperature Pulse Rate 98 99 98 Pulse Rate [ Physical Science Aide ] Respiratory 6 L 4 L 16 Rate Blood Pressure 159/92 160/86 157/86 Blood Pressure [Left Arm] O2 Sat by Pulse 99 99 99 Oximetry Fraction of Inspired Oxygen (FIO2) 08/14/24 08/14/24 08/14/24 20:00 20:05 20:10 Temperature Pulse Rate 95 95 99 Pulse Rate [ Physical Science Aide ] Respiratory 19 11 L 0 L Rate Blood Pressure 152/88 157/88 156/91 Blood Pressure [Left Arm] O2 Sat by Pulse 99 100 100 Oximetry Fraction of Inspired Oxygen (FIO2) 08/14/24 08/14/24 08/14/24 20:15 20:20 20:25 Temperature Pulse Rate 94 105 H 105 H Pulse Rate [ Physical Science Aide ] Respiratory 7 L 7 L 11 L Rate Blood Pressure 154/91 148/90 168/91 Blood Pressure [Left Arm] O2 Sat by Pulse 99 99 98 Oximetry Fraction of Inspired Oxygen (FIO2) 08/14/24 08/14/24 08/14/24 20:30 20:35 20:40 Temperature Pulse Rate 102 H 106 H 101 H Pulse Rate [ Physical Science Aide ] Respiratory 27 H 8 L 12 Rate Blood Pressure 161/91 158/89 157/86 Blood Pressure [Left Arm] O2 Sat by Pulse 99 99 99 Oximetry Fraction of Inspired Oxygen (FIO2) Medical Decision Making - Medical Decision Making The patient had chest x-ray which I interpreted as showing presence of pulmonary edema. No pneumothorax. No definite infiltrate Patient is 34-year-old woman with end-stage renal disease on hemodialysis brought by ambulance for severe dyspnea. The patient was brought directly to the resuscitation room where she is started on BiPAP and I administered IV nitroglycerin to improve patient's blood pressure. The patient is in hypertensive urgency with pulmonary edema and will be admitted to have emergent dialysis as well as further medical management. Was pt. sent in by a medical professional or institution (, PA, COAL CAGER, urgent care, hospital, or custodial...) When possible be specific @ -[No] Did you speak to anyone other than the patient for history (EMS, parent, family, police, friend...)? What history was obtained from this source @ -[MS did provide history Did you review nursing and triage notes (agree or disagree)? Why? @ -[I reviewed and agree with nursing and triage notes] Were old charts reviewed (outside hosp., previous admission, EMS record, old EKG, old radiological studies, urgent care reports/EKG's, custodial records)? Report findings @ -[Yes, old charts were reviewed] Differential Diagnosis (chest pain, altered mental status, abdominal pain women, abdominal pain men, vaginal bleeding, weakness, fever, dyspnea, syncope, headache, dizziness, GI bleed, back pain, seizure, CVA, palpatations, mental health, musculoskeletal)? @ -[Differential Dyspnea: Coronary syndrome, arrhythmia, tamponade, asthma, COPD, pulmonary embolism, pneumonia, pneumothorax, pulmonary effusion, anaphylaxis, diabetic ketoacidosis, flailed chest, pulmonary contusion, diaphragmatic rupture, anemia, neuromuscular, this is not meant to be an all-inclusive list. EKG interpreted by me (3pts min.). @ -[I interpreted as above] X-rays interpreted by me (1pt min.). @ -[I interpreted as above CT interpreted by me (1pt min.). @ -[None done] U/S interpreted by me (1pt. min.). @ -[None done] What testing was considered but not performed or refused? (CT, X-rays, U/S, labs)? Why? @ -[None] What meds were considered but not given or refused? Why? @ -[None] Did you discuss the management of the patient with other professionals (professionals i.e. , PA, COAL CAGER, lab, RT, psych nurse, elementary school social worker, voip technician, teacher, supervisor dog license officer, telehealth case manager)? Give summary @ -[Case discussed with admitting physician and also with the pulmonology service, midlevel and nephrology service. Treatment recommendations incorporated Was smoking cessation discussed for >3mins.? @ -[No] Was critical care preformed (if so, how long)? @ -[Yes, 35 minutes Were there social determinants of health that impacted care today? How? (Homelessness, low income, unemployed, alcoholism, drug addiction, transportation, low edu. Level, literacy, decrease access to med. care, intermediate, rehab)? @ -[No] Was there de-escalation of care discussed even if they declined (Discuss DNR or withdrawal of care, Hospice)? DNR status @ -[No] What co-morbidities impacted this encounter? (DM, HTN, Smoking, COPD, CAD, Cancer, CVA, ARF, Chemo, Hep., AIDS, mental health diagnosis, sleep apnea, morbid obesity)? @ -[Hypertension, end-stage renal disease, diabetes Was patient admitted / discharged? Hospital course, mention meds given and route, prescriptions, significant lab abnormalities, going to OR and other pertinent info. @ -[Patient presents with significant dyspnea, is hypertensive, has congestive heart failure/pulmonary edema. The patient placed on BiPAP and on IV nitroglycerin with improvement clinically. Patient is admitted to have further inpatient treatment Undiagnosed new problem with uncertain prognosis? @ -[No] Drug Therapy requiring intensive monitoring for toxicity (Heparin, Nitro, Insulin, Cardizem)? @ -[IV nitroglycerin Were any procedures done? @ -[No] Diagnosis/symptom? @ -[Acute hypertensive urgency Acute pulmonary edema acute respiratory failure end stage renal disease Mild hyperkalemia Hyperglycemia and diabetic patient Acute, or Chronic, or Acute on Chronic? @ -[Acute Uncomplicated (without systemic symptoms) or Complicated (systemic symptoms)? @ -[Complicated by acute respiratory failure Side effects of treatment? @ -[No] Exacerbation, Progression, or Severe Exacerbation? @ -[No] Poses a threat to life or bodily function? How? (Chest pain, [place], [place], pneumonia, PE, COPD, DKA, ARF, appy, cholecystitis, CVA, Diverticulitis, Homicidal, Suicidal, threat to staff... and all critical care pts) @ -[Yes, - Lab Data Result diagrams: 08/23/24 07:15 08/24/24 03:36 Lab Results 08/14/24 08/14/24 08/14/24 Range/Units 04:50 04:50 04:50 WBC 18.5 H (3.8-10.6) k/uL RBC 3.99 (3.80-5.40) m/uL Hgb 12.8 D (11.4-16.0) gm/dL Hct 39.8 (34.0-46.0) % MCV 99.7 (80.0-100.0) fL MCH 32.0 (25.0-35.0) pg MCHC 32.1 (31.0-37.0) g/dL RDW 19.4 H (11.5-15.5) % Plt Count 443 (150-450) k/uL MPV 8.4 Neutrophils % 85 % Lymphocytes % 8 % Monocytes % 2 % Eosinophils % 4 % Basophils % 1 % Neutrophils # 15.8 H (1.3-7.7) k/uL Lymphocytes # 1.5 (1.0-4.8) k/uL Monocytes # 0.3 (0-1.0) k/uL Eosinophils # 0.8 H (0-0.7) k/uL Basophils # 0.1 (0-0.2) k/uL Anisocytosis Slight Macrocytosis Moderate PT 10.5 (10.0-12.5) sec INR 1.0 (<1.2) APTT 24.8 (22.0-30.0) sec Sodium 135 L (137-145) mmol/L Potassium 5.5 H (3.5-5.1) mmol/L Chloride 94 L (98-107) mmol/L Carbon Dioxide 23 (22-30) mmol/L Anion Gap 18 mmol/L BUN 53 H (7-17) mg/dL Creatinine 6.78 H (0.52-1.04) mg/dL Est GFR (CKD-EPI)AfAm 8 (>60 ml/min/1.73 sqM) Est GFR (CKD-EPI)NonAf 7 (>60 ml/min/1.73 sqM) Glucose 247 H (74-99) mg/dL Plasma Lactic Acid Christopher (0.7-2.0) mmol/L Calcium 9.9 (8.4-10.2) mg/dL Total Bilirubin 1.3 (0.2-1.3) mg/dL AST 46 H (14-36) U/L ALT 23 (4-34) U/L Alkaline Phosphatase 165 H (38-126) U/L Troponin I (0.000-0.034) ng/mL NT-Pro-B Natriuret Pep 74734 pg/mL Total Protein 8.8 H (6.3-8.2) g/dL Albumin 5.6 H (3.5-5.0) g/dL 08/14/24 08/14/24 Range/Units 04:50 04:50 WBC (3.8-10.6) k/uL RBC (3.80-5.40) m/uL Hgb (11.4-16.0) gm/dL Hct (34.0-46.0) % MCV (80.0-100.0) fL MCH (25.0-35.0) pg MCHC (31.0-37.0) g/dL RDW (11.5-15.5) % Plt Count (150-450) k/uL MPV Neutrophils % % Lymphocytes % % Monocytes % % Eosinophils % % Basophils % % Neutrophils # (1.3-7.7) k/uL Lymphocytes # (1.0-4.8) k/uL Monocytes # (0-1.0) k/uL Eosinophils # (0-0.7) k/uL Basophils # (0-0.2) k/uL Anisocytosis Macrocytosis PT (10.0-12.5) sec INR (<1.2) APTT (22.0-30.0) sec Sodium (137-145) mmol/L Potassium (3.5-5.1) mmol/L Chloride (98-107) mmol/L Carbon Dioxide (22-30) mmol/L Anion Gap mmol/L BUN (7-17) mg/dL Creatinine (0.52-1.04) mg/dL Est GFR (CKD-EPI)AfAm (>60 ml/min/1.73 sqM) Est GFR (CKD-EPI)NonAf (>60 ml/min/1.73 sqM) Glucose (74-99) mg/dL Plasma Lactic Acid Christopher 2.9 H* (0.7-2.0) mmol/L Calcium (8.4-10.2) mg/dL Total Bilirubin (0.2-1.3) mg/dL AST (14-36) U/L ALT (4-34) U/L Alkaline Phosphatase (38-126) U/L Troponin I 0.042 H* (0.000-0.034) ng/mL NT-Pro-B Natriuret Pep pg/mL Total Protein (6.3-8.2) g/dL Albumin (3.5-5.0) g/dL - EKG Data -: EKG Interpreted by Me EKG shows normal: sinus rhythm, axis (Normal), intervals (Normal), QRS complexes (Possible right ventricular conduction delay) Rate: tachycardia (Rate 114 bpm) Interpretation: nonspecific ST-T wave changes Disposition Clinical Impression: Acute respiratory failure, Pulmonary edema, ESRD (end stage renal disease), Hypertensive urgency Disposition: ADMITTED IP TO THIS HOSP Condition: Good Is patient prescribed a controlled substance at d/c from ED?: No
[2024-08-14 05:24] LABS: Partial Thromboplastin Time 24.8 sec (22.0-30.0); Prothrombin Time 10.5 sec (10.0-12.5)
[2024-08-14 05:26] LABS: ALT 23 U/L (4-34); African American GFR (CKD) 8 (>60 ml/min/1.73 sqM); Albumin 5.6 g/dL (3.5-5.0); Anion Gap 18 mmol/L; Blood Urea Nitrogen 53 mg/dL (7-17); Calcium 9.9 mg/dL (8.4-10.2); Carbon Dioxide 23 mmol/L (22-30); Chloride 94 mmol/L (98-107); Glucose 247 mg/dL (74-99); Non-African American GFR(CKD) 7 (>60 ml/min/1.73 sqM); Sodium 135 mmol/L (137-145); Total Bilirubin 1.3 mg/dL (0.2-1.3); Total Protein 8.8 g/dL (6.3-8.2)
[2024-08-14] MEDS: cloNIDine HCL 0.2 MG TAB PO STA (05:49)
[2024-08-14 06:02] LABS: AST 46 U/L (14-36); Alkaline Phosphatase 165 U/L (38-126); NT-Pro-B-Type Natriuretic Pept 96400 pg/mL; Potassium 5.5 mmol/L (3.5-5.1)
[2024-08-14] MEDS: ASPIRIN 325 MG TAB PO STA (06:59)
[2024-08-14] MEDS: hydrALAZINE HCL 20 MG/ML 1 ML VIAL IVP PRN (09:32)
--- NOTE | 2024-08-14 10:48 | P.NPCON ---
History of Present Illness - History of Present Illness 34-year-old female with a past medical history of ESRD (TTS), diabetes, CHF (ech o from 01/08 shows EF of 55-60%) presents with increasing shortness of breath. Patient reports they received their most recent dialysis on Wednesday. No history of fever. No CP. Patient has not missed any hemodialysis treatments. CXR in the ED shows severe pulmonary edema. Nephrology consulted for dialysis management and fluid overload. Past Medical History Past Medical History: Diabetes Mellitus, GERD/Reflux, Hypertension, Renal Disease, Seizure Disorder, Thyroid Disorder Additional Past Medical History / Comment(s): Neuropathy, last seizure 2020, gastroparesis, headaches with dialysis, states "fast heart rate" since giving ., receives Hemodialysis Wednesday- and Saturdays at [facility] [place] right chest hemodialysis catheter., severe HTN. patient awaiting Kidney and Pancrease Transplant. , states sometimes she has had stroke -like symptoms but no stroke., hx of c-diff 2013. History of Any Multi-Drug Resistant Organisms: None Reported Date of last positivie culture/infection: None MDRO Source:: None Past Surgical History: Adenoidectomy, Section, Cholecystectomy, Orthope dic Surgery, Tonsillectomy Additional Past Surgical History / Comment(s): 2 KNEE SCOPES, EAR TUBES, additional left knee surgery related to fracture, new port a cath sept , eye surgeries for diabetic retinopathy. Past Anesthesia/Blood Transfusion Reactions: Previous Problems w/ Anesthesia Additional Past Anesthesia/Blood Transfusion Reaction / Comment(s): confusion Past Psychological History: Anxiety, Depression Smoking Status: Former smoker Past Alcohol Use History: None Reported Past Drug Use History: Marijuana, Methamphetamine - Past Family History Father History Unknown: Yes Family Medical History: Unable to Obtain Mother History Unknown: Yes Family Medical History: No Reported History Grandfather History Unknown: Yes Family Medical History: Coronary Artery Disease (CAD) Additional Family Medical History / Comment(s): Diabetes mellitus type 2 Medications and Allergies Home Medications Medication Instructions Recorded Confirmed Type Docusate [Colace] 100 mg PO DAILY@0800 02/05/24 08/14/24 History Lidocaine 4% Patch 1 patch TOPICAL DAILY@79902/05/24 08/14/24 History Magnesium Hydroxide [Milk of 7,200 mg PO DAILY PRN 02/05/24 08/14/24 History Magnesia Concentrate] bisacodyL [Dulcolax] 10 mg RECTAL DAILY PRN 02/05/24 08/14/24 History Ipratropium-Albuterol Nebulize 3 ml INHALATION RT-TID PRN each 02/14/24 08/14/24 Rx [Duoneb 0.5 mg-3 mg/3 ml Soln] polyethylene glycoL 3350 [Miralax] 17 gm PO AC-LUNCH #527 gm 02/14/24 08/14/24 Rx Acetaminophen [Tylenol] 650 mg PO Q4H PRN 02/18/24 08/14/24 History Biotene Dry Mouth/Throat 10 ml PO BID PRN 02/18/24 08/14/24 History Melatonin 1 mg PO HS tab 02/25/24 08/14/24 Rx Butalb/APAP/Caff 50-325-40Mg 1 tab PO Q4HR PRN 03/14/24 08/14/24 History [Fioricet 50-325-40] Darbepoetin Artur [Aranesp] 40 mcg SQ MO 03/14/24 08/14/24 History Loratadine [Claritin] 5 mg PO DAILY tab 03/30/24 08/14/24 Rx INSULIN ASPART (NovoLOG) [NovoLOG See Protocol SQ ACHS 04/16/24 08/14/24 History (formulary)] Aspirin 81 mg PO DAILY@0800 #30 tab 05/18/24 08/14/24 Rx Famotidine [Pepcid] 20 mg PO BID #60 tab 07/11/24 08/14/24 Rx Insulin Glargine [Lantus Vial] 12 unit SQ BID #1 each 07/11/24 08/14/24 Rx NIFEdipine XL [Procardia XL] 60 mg PO BID@0800,1700 #60 tab 07/11/24 08/14/24 Rx Ondansetron [Zofran] 4 mg PO Q8HR PRN #20 tab 07/11/24 08/14/24 Rx Sevelamer [Renvela] 800 mg PO HS #30 tab 07/11/24 08/14/24 Rx ALPRAZolam [Xanax] 0.25 mg PO DIRECTED PRN 08/14/24 08/14/24 History Atorvastatin [Lipitor] 40 mg PO DIRECTED 08/14/24 08/14/24 History Divalproex ER [Depakote ER] 500 mg PO DIRECTED 08/14/24 08/14/24 History Folic Acid-Vit B Complex-Vit C 1 cap PO DIRECTED 08/14/24 08/14/24 History [Nephrocaps] HYDROcodone/APAP 7.5-325MG [[place] 1 tab PO DIRECTED PRN 08/14/24 08/14/24 History 7.5-325] Isosorbide Mononitrate ER [Imdur] 30 mg PO DIRECTED 08/14/24 08/14/24 History Labetalol [Trandate] 200 mg PO DIRECTED 08/14/24 08/14/24 History Levothyroxine Sodium [Synthroid] 175 mcg PO DIRECTED 08/14/24 08/14/24 History Metoclopramide [Reglan] 5 mg PO DIRECTED PRN 08/14/24 08/14/24 History Pantoprazole [Protonix] 40 mg PO DIRECTED 08/14/24 08/14/24 History [place] Caps 1 cap PO DIRECTED 08/14/24 08/14/24 History Sacubitril/Valsartan [Entresto 49 1 tab PO DIRECTED 08/14/24 08/14/24 History mg-51 mg Tablet] Sertraline [Zoloft] 200 mg PO DIRECTED 08/14/24 08/14/24 History Sevelamer [Renvela] 1,600 mg PO DIRECTED 08/14/24 08/14/24 History cloNIDine HCL [Catapres] 0.3 mg PO DIRECTED 08/14/24 08/14/24 History hydrALAZINE HCL [Apresoline] 150 mg PO DIRECTED 08/14/24 08/14/24 History methocarbamoL [Robaxin-750] 750 mg PO DIRECTED 08/14/24 08/14/24 History traZODone HCL [Desyrel] 50 mg PO DIRECTED 08/14/24 08/14/24 History Allergies Allergy/AdvReac Type Severity Reaction Status Date / Time hydromorphone HCl Allergy Anaphylaxis Verified 08/14/24 09:55 [From Dilaudid] propoxyphene Allergy Rash/Hives Verified 08/14/24 09:55 [From Darvocet-N] tramadol Allergy Anaphylaxis Verified 08/14/24 09:55 ibuprofen [From Motrin] AdvReac unable to Verified 08/14/24 09:55 take due to kidney disease venom-honey bee AdvReac passes out Verified 08/14/24 09:55 [bee venom (honey bee)] Physical Exam Vitals: Vital Signs Temp Pulse Resp BP Pulse Ox FiO2 08/14/24 10:02 90 22 166/95 98 08/14/24 09:45 166/95 08/14/24 09:31 80 22 180/107 99 08/14/24 09:12 89 22 185/109 99 08/14/24 08:38 100 40 08/14/24 08:25 40 08/14/24 08:20 98.5 F 89 18 190/111 97 08/14/24 08:00 95 22 175/103 98 08/14/24 07:27 90 22 186/110 97 08/14/24 07:00 107 H 14 185/115 95 08/14/24 06:55 93 21 187/114 97 08/14/24 06:50 93 22 182/109 97 08/14/24 06:45 90 21 180/115 97 08/14/24 06:40 93 20 184/116 97 08/14/24 06:35 96 21 182/118 97 08/14/24 06:30 96 20 183/118 97 08/14/24 06:25 96 22 189/117 96 08/14/24 06:20 101 H 21 190/120 96 08/14/24 06:15 95 20 191/114 96 08/14/24 06:10 93 19 191/116 97 08/14/24 06:05 98 15 198/120 95 08/14/24 06:00 93 21 199/120 95 08/14/24 05:55 94 22 186/128 96 08/14/24 05:50 99 20 188/117 95 08/14/24 05:45 96 22 196/121 95 08/14/24 05:40 95 22 190/121 94 L 08/14/24 05:35 96 23 194/124 95 08/14/24 05:30 98 23 200/123 95 08/14/24 05:25 100 24 197/119 95 08/14/24 05:20 102 H 23 194/125 95 08/14/24 05:15 109 H 11 L 217/130 96 08/14/24 05:10 112 H 26 H 198/130 95 08/14/24 04:49 40 08/14/24 04:48 40 08/14/24 04:46 140 H 23 204/144 95 08/14/24 04:41 97.4 F L 148 H 28 H 249/157 90 L Intake and Output 08/13/24 08/14/24 08/14/24 22:59 06:59 14:59 Intake Total 46.700 Balance 46.700 Intake: Intake, IV Titration 46.700 Amount Nitroglycerin-D5w Pmx 50 46.700 mg In Dextrose/Water 1 250ml.bag @ 20 MCG/MIN 6 mls/hr IV .Q24H ONE Rx#: [id number] Other: Weight 63.503 kg Vital signs are stable. General: No acute distress. HEENT: Head exam is unremarkable. On nasal cannula. LUNGS: No audible rhonchi or wheezes. HEART: Rate and Rhythm are regular. ABDOMEN: Nontender. EXTREMITITES: No edema. Results - Lab Results Most recent lab results Calcium 9.9 mg/dL (8.4-10.2) 08/14/24 04:50 08/14/24 04:50 08/14/24 04:50 Assessment and Plan Assessment: 1. End-stage renal disease maintained on hemodialysis on Wednesday schedule. With extra treatments on mondays. 2. Volume overload. 3.Acute hypoxic respiratory failure, currently on BiPAP. 4. CKD mineral bone disroder Plan: Initiate hemodialysis today. Challenge ultrafiltration. Repeat HD in AM Cont anti hypertensive treatment Cont with phosphate binders Wean o2 as tolerated Thank you for the consultation we will continue to follow the patient. Agree with resident's findings, assessment and plan.
--- NOTE | 2024-08-14 12:18 | P.CNPUL ---
History of Present Illness Consult date: 08/14/24 Requesting physician: Jamal Glasgow Reason for consult: dyspnea, hypoxemia, abnormal CXR/CT Chief complaint: Shortness of breath History of present illness: This is a 34-year-old female patient with a known history of uncontrolled hypertension, end-stage renal disease requiring hemodialysis 4 times weekly, diabetes mellitus, TIA/CVA, optic neuritis, anemia of chronic disease. She has had multiple admissions for fluid volume overload and hypertensive emergency. She presented here again early this morning with worsening shortness of breath. She states she had dialysis 2 days ago on 08/12/2024. Chest x-ray revealed severe pulmonary edema. She was placed on BiPAP 10/5 and 40% FiO2. She was extremely hypertensive and requiring a nitroglycerin drip currently at 130 mcg/min. White count 18.5. Hemoglobin 12.8. Platelets 443. Sodium 135. Potassium 5.5. Bicarb 23. BUN 53. Creatinine 6.78. Glucose 247. proBNP 96,400. She is seen currently in the emergency department. She remains on BiPAP. She is receiving hemodialysis with a goal of 4 L to be removed today. Review of Systems REVIEW OF SYSTEMS: CONSTITUTIONAL: Denies any recent significant weight loss or weight gain. EYES: Denies change in vision. EARS, NOSE, MOUTH, THROAT: Denies headaches, denies sore throat. CARDIOVASCULAR: Denies chest pain, palpitations or syncopal episodes. RESPIRATORY: Positive for shortness of breath, no cough, congestion or hemoptysis. GASTROINTESTINAL: Denies change in appetite, denies abdominal pain GENITOURINARY: Denies hematuria, denies infections. MUSKULOSKELETAL: Denies pain, denies swelling. INTEGUMENTARY: Denies rash, denies eczema. NEUROLOGICAL: Denies recent memory loss, no recent seizure activity. PSYCHIATRIC: Denies anxiety, denies depression. HEMATOLOGIC/LYMPHATIC: Denies anemia, denies enlarged lymph nodes. Past Medical History Past Medical History: Diabetes Mellitus, GERD/Reflux, Hypertension, Renal Disease, Seizure Disorder, Thyroid Disorder Additional Past Medical History / Comment(s): Neuropathy, last seizure 2020, gastroparesis, headaches with dialysis, states "fast heart rate" since giving ., receives Hemodialysis Wednesday- and Saturdays at [facility] right chest hemodialysis catheter., severe HTN. patient awaiting Kidney and Pancrease Transplant. , states sometimes she has had stroke -like symptoms but no stroke., hx of c-diff 2013. History of Any Multi-Drug Resistant Organisms: None Reported Date of last positivie culture/infection: None MDRO Source:: None Past Surgical History: Adenoidectomy, Section, Cholecystectomy, Orthopedic Surgery, Tonsillectomy Additional Past Surgical History / Comment(s): 2 KNEE SCOPES, EAR TUBES, additional left knee surgery related to fracture, new port a cath sept , eye surgeries for diabetic retinopathy. Past Anesthesia/Blood Transfusion Reactions: Previous Problems w/ Anesthesia Additional Past Anesthesia/Blood Transfusion Reaction / Comment(s): confusion Past Psychological History: Anxiety, Depression Smoking Status: Former smoker Past Alcohol Use History: None Reported Past Drug Use History: Marijuana, Methamphetamine - Past Family History Father History Unknown: Yes Family Medical History: Unable to Obtain Mother History Unknown: Yes Family Medical History: No Reported History Grandfather History Unknown: Yes Family Medical History: Coronary Artery Disease (CAD) Additional Family Medical History / Comment(s): Diabetes mellitus type 2 Medications and Allergies Home Medications Medication Instructions Recorded Confirmed Type Docusate [Colace] 100 mg PO DAILY@0800 02/05/24 08/14/24 History Lidocaine 4% Patch 1 patch TOPICAL DAILY@0802/05/24 08/14/24 History Magnesium Hydroxide [Milk of 7,200 mg PO DAILY PRN 02/05/24 08/14/24 History Magnesia Concentrate] bisacodyL [Dulcolax] 10 mg RECTAL DAILY PRN 02/05/24 08/14/24 History Ipratropium-Albuterol Nebulize 3 ml INHALATION RT-TID PRN each 02/14/24 08/14/24 Rx [Duoneb 0.5 mg-3 mg/3 ml Soln] polyethylene glycoL 3350 [Miralax] 17 gm PO AC-LUNCH #527 gm 02/14/24 08/14/24 Rx Acetaminophen [Tylenol] 650 mg PO Q4H PRN 02/18/24 08/14/24 History Biotene Dry Mouth/Throat 10 ml PO BID PRN 02/18/24 08/14/24 History Melatonin 1 mg PO HS tab 02/25/24 08/14/24 Rx Butalb/APAP/Caff 50-325-40Mg 1 tab PO Q4HR PRN 03/14/24 08/14/24 History [Fioricet 50-325-40] Darbepoetin Artur [Aranesp] 40 mcg SQ MO 03/14/24 08/14/24 History Loratadine [Claritin] 5 mg PO DAILY tab 03/30/24 08/14/24 Rx INSULIN ASPART (NovoLOG) [NovoLOG See Protocol SQ ACHS 04/16/24 08/14/24 History (formulary)] Aspirin 81 mg PO DAILY@0800 #30 tab 05/18/24 08/14/24 Rx Famotidine [Pepcid] 20 mg PO BID #60 tab 07/11/24 08/14/24 Rx Insulin Glargine [Lantus Vial] 12 unit SQ BID #1 each 07/11/24 08/14/24 Rx NIFEdipine XL [Procardia XL] 60 mg PO BID@0800,1700 #60 tab 07/11/24 08/14/24 Rx Ondansetron [Zofran] 4 mg PO Q8HR PRN #20 tab 07/11/24 08/14/24 Rx Sevelamer [Renvela] 800 mg PO HS #30 tab 07/11/24 08/14/24 Rx ALPRAZolam [Xanax] 0.25 mg PO DIRECTED PRN 08/14/24 08/14/24 History Atorvastatin [Lipitor] 40 mg PO DIRECTED 08/14/24 08/14/24 History Divalproex ER [Depakote ER] 500 mg PO DIRECTED 08/14/24 08/14/24 History Folic Acid-Vit B Complex-Vit C 1 cap PO DIRECTED 08/14/24 08/14/24 History [Nephrocaps] HYDROcodone/APAP 7.5-325MG [[place] 1 tab PO DIRECTED PRN 08/14/24 08/14/24 History 7.5-325] Isosorbide Mononitrate ER [Imdur] 30 mg PO DIRECTED 08/14/24 08/14/24 History Labetalol [Trandate] 200 mg PO DIRECTED 08/14/24 08/14/24 History Levothyroxine Sodium [Synthroid] 175 mcg PO DIRECTED 08/14/24 08/14/24 History Metoclopramide [Reglan] 5 mg PO DIRECTED PRN 08/14/24 08/14/24 History Pantoprazole [Protonix] 40 mg PO DIRECTED 08/14/24 08/14/24 History [place] Caps 1 cap PO DIRECTED 08/14/24 08/14/24 History Sacubitril/Valsartan [Entresto 49 1 tab PO DIRECTED 08/14/24 08/14/24 History mg-51 mg Tablet] Sertraline [Zoloft] 200 mg PO DIRECTED 08/14/24 08/14/24 History Sevelamer [Renvela] 1,600 mg PO DIRECTED 08/14/24 08/14/24 History cloNIDine HCL [Catapres] 0.3 mg PO DIRECTED 08/14/24 08/14/24 History hydrALAZINE HCL [Apresoline] 150 mg PO DIRECTED 08/14/24 08/14/24 History methocarbamoL [Robaxin-750] 750 mg PO DIRECTED 08/14/24 08/14/24 History traZODone HCL [Desyrel] 50 mg PO DIRECTED 08/14/24 08/14/24 History Allergies Allergy/AdvReac Type Severity Reaction Status Date / Time hydromorphone HCl Allergy Anaphylaxis Verified 08/14/24 09:55 [From Dilaudid] propoxyphene Allergy Rash/Hives Verified 08/14/24 09:55 [From Darvocet-N] tramadol Allergy Anaphylaxis Verified 08/14/24 09:55 ibuprofen [From Motrin] AdvReac unable to Verified 08/14/24 09:55 take due to kidney disease venom-honey bee AdvReac passes out Verified 08/14/24 09:55 [bee venom (honey bee)] Physical Exam Vitals: Vital Signs Temp Pulse Resp BP Pulse Ox FiO2 08/14/24 11:01 40 08/14/24 10:43 82 18 144/87 98 08/14/24 10:02 90 22 166/95 98 08/14/24 09:45 166/95 08/14/24 09:31 80 22 180/107 99 08/14/24 09:12 89 22 185/109 99 08/14/24 08:38 100 40 08/14/24 08:25 40 08/14/24 08:20 98.5 F 89 18 190/111 97 08/14/24 08:00 95 22 175/103 98 08/14/24 07:27 90 22 186/110 97 08/14/24 07:00 107 H 14 185/115 95 08/14/24 06:55 93 21 187/114 97 08/14/24 06:50 93 22 182/109 97 08/14/24 06:45 90 21 180/115 97 08/14/24 06:40 93 20 184/116 97 08/14/24 06:35 96 21 182/118 97 08/14/24 06:30 96 20 183/118 97 08/14/24 06:25 96 22 189/117 96 08/14/24 06:20 101 H 21 190/120 96 08/14/24 06:15 95 20 191/114 96 08/14/24 06:10 93 19 191/116 97 08/14/24 06:05 98 15 198/120 95 08/14/24 06:00 93 21 199/120 95 08/14/24 05:55 94 22 186/128 96 08/14/24 05:50 99 20 188/117 95 08/14/24 05:45 96 22 196/121 95 08/14/24 05:40 95 22 190/121 94 L 08/14/24 05:35 96 23 194/124 95 08/14/24 05:30 98 23 200/123 95 08/14/24 05:25 100 24 197/119 95 08/14/24 05:20 102 H 23 194/125 95 08/14/24 05:15 109 H 11 L 217/130 96 08/14/24 05:10 112 H 26 H 198/130 95 08/14/24 04:49 40 08/14/24 04:48 40 08/14/24 04:46 140 H 23 204/144 95 08/14/24 04:41 97.4 F L 148 H 28 H 249/157 90 L Intake and Output 08/13/24 08/14/24 08/14/24 22:59 06:59 14:59 Intake Total 46.700 Balance 46.700 Intake: Intake, IV Titration 46.700 Amount Nitroglycerin-D5w Pmx 50 46.700 mg In Dextrose/Water 1 250ml.bag @ 20 MCG/MIN 6 mls/hr IV .Q24H ONE Rx#: [id number] Other: Weight 63.503 kg GENERAL EXAM: Alert, 4-year-old female, on BiPAP 10/5 and 40% FiO2, fairly comfortable in no apparent distress. HEAD: Normocephalic. EYES: Normal reaction of pupils, equal size. NOSE: Clear with pink turbinates. THROAT: No erythema or exudates. NECK: No masses, no JVD. CHEST: No chest wall deformity. Right sided hemodialysis catheter in place LUNGS: Equal air entry with crackles in the bilateral bases. CVS: S1 and S2 normal with no audible murmur, regular rhythm. ABDOMEN: No hepatosplenomegaly, normal bowel sounds, no guarding or rigidity. SPINE: No scoliosis or deformity SKIN: No rashes CENTRAL NERVOUS SYSTEM: No focal deficits, tone is normal in all 4 extremities. EXTREMITIES: There is no peripheral edema. No clubbing, no cyanosis. Peripheral pulses are intact. Results - Laboratory Findings CBC and BMP: 08/14/24 04:50 08/14/24 04:50 PT/INR, D-dimer PT 10.5 sec (10.0-12.5) 08/14/24 04:50 INR 1.0 (<1.2) 08/14/24 04:50 Abnormal lab findings: Abnormal Labs 08/14/24 08/14/24 08/14/24 04:50 04:50 04:50 WBC 18.5 H RDW 19.4 H Neutrophils # 15.8 H Eosinophils # 0.8 H Sodium 135 L Potassium 5.5 H Chloride 94 L BUN 53 H Creatinine 6.78 H Glucose 247 H Plasma Lactic Acid Christopher 2.9 H* AST 46 H Alkaline Phosphatase 165 H Troponin I Total Protein 8.8 H Albumin 5.6 H 08/14/24 08/14/24 04:50 10:19 WBC RDW Neutrophils # Eosinophils # Sodium Potassium Chloride BUN Creatinine Glucose Plasma Lactic Acid Christopher 0.6 L AST Alkaline Phosphatase Troponin I 0.042 H* Total Protein Albumin - Diagnostic Findings Chest x-ray: image reviewed Assessment and Plan Assessment: Acute hypoxemic respiratory failure secondary to an acute episode of pulmonary edema and fluid volume overload currently requiring BiPAP support. Currently receiving hemodialysis with a goal of 4 L to be removed Hypertensive urgency requiring nitroglycerin drip currently at 130 mcg/min End-stage renal disease requiring hemodialysis 4 times per week Hyperkalemia secondary to above Diabetes mellitus, insulin-dependent Anemia of chronic disease History of CVA/TIA History of optic neuritis Hypothyroidism History of depression Plan: The patient was seen and evaluated Chest x-ray, labs and medications reviewed Add a Apresoline 20 mg every 6 hours as needed Titrate down the nitroglycerin drip as tolerated Titrate the FiO2 as tolerated Currently receiving urgent hemodialysis May require ICU admission if hypertension not improving We will continue to follow and make further recommendations based on her clinical status I have personally seen and examined the patient, performed the documentation and the assessment and plan as written. Number of minutes spent on the visit: 20.
[2024-08-14] MEDS ORDERED: methocarbamoL 750 MG TAB PO PRN (16:42)
[2024-08-14] MEDS ORDERED: ALPRAZolam 0.25 MG TAB PO PRN (16:42)
[2024-08-14] MEDS ORDERED: IPRATROPIUM-ALBUTEROL 3 ML NEB INHALATION PRN (16:42)
[2024-08-14] MEDS ORDERED: DRY MOUTH SPRAY 44.3 SPRAY/44.3 ML SPRAY MUCOUS MEM PRN (16:42)
[2024-08-14] MEDS ORDERED: bisacodyL 10 MG SUPP RECTAL PRN (16:42)
[2024-08-14] MEDS: INSULIN ASPART (NovoLOG) 100 UNIT/ML VIAL SQ SCH (16:58)
[2024-08-14] MEDS: DARBEPOETIN ALFA 40 MCG/0.4 ML SYRINGE SQ SCH (17:02)
[2024-08-14] MEDS: HYDROcodone/APAP 7.5-325MG 1 EACH TAB PO PRN (17:13)
[2024-08-14] MEDS: SEVELAMER 800 MG TAB PO SCH ×2 (17:13→20:31)
[2024-08-14] MEDS: DIVALPROEX ER 500 MG TAB.ER.24H PO SCH (17:14)
[2024-08-14] MEDS: NITROGLYCERIN-D5W PMX 50 MG in DEXTROSE/WATER 1 250ML.BAG IV SCH (18:41)
[2024-08-14] MEDS: CLEVIDIPINE BUTYRATE 25 MG in EMPTY BAG 1 BAG IV SCH (18:56)
[2024-08-14] MEDS: traZODone HCL 50 MG TAB PO SCH (20:31)
[2024-08-14] MEDS: cloNIDine HCL 0.1 MG TAB PO SCH (20:31)
[2024-08-14] MEDS: INSULIN DETEMIR (LEVEMIR) 100 UNIT/ML SYR SQ SCH (20:31)
[2024-08-14] MEDS: ATORVASTATIN 40 MG TAB PO SCH (20:31)
[2024-08-14] MEDS: FAMOTIDINE 20 MG TAB PO SCH (20:31)
[2024-08-14] MEDS: LABETALOL 200 MG TAB PO SCH (20:31)
[2024-08-14] MEDS: MORPHINE SULFATE 2 MG/ML SYRINGE IVP PRN (20:37)
[2024-08-14] MEDS: ONDANSETRON 4 MG TAB PO PRN (20:38)
[2024-08-14] MEDS ORDERED: FAMOTIDINE 20 MG TAB PO SCH (21:00)
[2024-08-14] MEDS ORDERED: RENO PO SCH (21:00)
[2024-08-14] MEDS: ACETAMINOPHEN TAB 325 MG TAB PO PRN (22:05)
[2024-08-14] MEDS: PROCHLORPERAZINE INJ 10 MG/2 ML VIAL IVP PRN (22:06)
[2024-08-15] MEDS: hydrALAZINE HCL 50 MG TAB PO SCH
[2024-08-15] MEDS: MELATONIN 1 MG TAB PO SCH (01:00)
[2024-08-15] MEDS: SACUBITRIL/VALSARTAN 49 MG-51 MG TABLET PO SCH (01:00)
[2024-08-15] MEDS: FOLIC ACID-VIT B COMPLEX-VIT C 1 CAP PO SCH (01:00)
[2024-08-15] MEDS: LEVOTHYROXINE 88 MCG TAB PO SCH (05:57)
[2024-08-15 06:18] LABS: Anisocytosis Slight; Basophils # (A) 0.1 k/uL (0-0.2); Basophils % (A) 1 %; Eosinophils # (A) 0.8 k/uL (0-0.7); Eosinophils % (A) 6 %; HCT 40.9 % (34.0-46.0); HGB 13.3 gm/dL (11.4-16.0); Lymphocytes # (A) 1.4 k/uL (1.0-4.8); Lymphocytes % (A) 11 %; MCHC 32.4 g/dL (31.0-37.0); MCV 98.8 fL (80.0-100.0); Macrocytosis Moderate; Mean Platelet Volume 8.5; Monocytes # (A) 0.6 k/uL (0-1.0); Monocytes % (A) 5 %; Neutrophils # (A) 9.3 k/uL (1.3-7.7); Neutrophils % (A) 76 %; Platelet Count 443 k/uL (150-450); RBC 4.14 m/uL (3.80-5.40); RDW 19.6 % (11.5-15.5); WBC 12.2 k/uL (3.8-10.6)
[2024-08-15 06:32] LABS: African American GFR (CKD) 10 (>60 ml/min/1.73 sqM); Anion Gap 12 mmol/L; Blood Urea Nitrogen 33 mg/dL (7-17); Calcium 9.7 mg/dL (8.4-10.2); Carbon Dioxide 29 mmol/L (22-30); Chloride 94 mmol/L (98-107); Glucose 148 mg/dL (74-99); Non-African American GFR(CKD) 9 (>60 ml/min/1.73 sqM); Potassium 4.3 mmol/L (3.5-5.1); Sodium 135 mmol/L (137-145)
--- NOTE | 2024-08-15 07:58 | XR ---
EXAMINATION TYPE: XR chest 1V portable DATE OF EXAM: 08/15/2024 COMPARISON: 08/14/2024 HISTORY: Follow-up pulmonary edema TECHNIQUE: Single frontal view of the chest is obtained. FINDINGS: Significant improvement in features of pulmonary edema with mild residual changes noted. The cardiac silhouette size is stable. The osseous structures are intact. IMPRESSION: 1. Significant improvement in features of pulmonary edema with mild residual changes noted. [facility], , 08/15/2024 7:55 AM
[2024-08-15] MEDS: amLODIPine 10 MG TAB PO SCH (08:26)
[2024-08-15] MEDS: ASPIRIN 81 MG PO SCH (08:26)
[2024-08-15] MEDS: DOCUSATE 100 MG CAP PO SCH (08:26)
[2024-08-15] MEDS: ISOSORBIDE MONONITRATE ER 30 MG TAB.ER.24H PO SCH (08:26)
[2024-08-15] MEDS: LORATADINE 10 MG TAB PO SCH (08:26)
[2024-08-15] MEDS: SERTRALINE 100 MG TAB PO SCH (08:30)
--- NOTE | 2024-08-15 12:38 | P.PN ---
Subjective patient is seen for follow-up for end-stage renal disease. Status post hemodialysis yesterday with UF of 4.2 L. Currently off of BiPAP. Off of nitro drip and Cleviprex drip. Blood pressure has improved. Objective - Vital Signs Vital signs: Vital Signs Temp 98.1 F 08/15/24 12:00 Pulse 70 08/15/24 12:15 Resp 10 L 08/15/24 12:15 BP 129/84 08/15/24 12:15 Pulse Ox 100 08/15/24 12:15 FiO2 40 08/14/24 11:01 Intake & Output 08/14/24 08/15/24 08/15/24 18:59 06:59 18:59 Intake Total 401.3 184.142 516.634 Output Total 8800 0 20 Balance -8398.7 184.142 496.634 Weight 65.3 kg Intake: Intake, IV Titration 1.3 184.142 116.634 Amount Clevidipine Butyrate 25 166.267 116.634 mg In Empty Bag 1 bag @ 5 MG/HR 10 mls/hr IV .Q5H VY Rx#:[id number] Nitroglycerin-D5w Pmx 50 1.3 17.875 mg In Dextrose/Water 1 250ml.bag @ 20 MCG/MIN 6 mls/hr IV .Q24H VY Rx#: [id number] Oral 400 Hemodialysis 400 Output: Urine 0 0 Emesis 20 Hemodialysis 4600 Hemodialysis Net Amount 4200 Other: # Voids 1 - Exam patient is awake, comfortable, no acute distress. Examination of the heart S1 and S2 Examination of the lungs decreased breath sounds at the bases Abdomen is soft nontender Examination of lower extremities shows no significant edema [employer]ER exam grossly intact - Labs CBC & Chem 7: 08/15/24 05:44 08/15/24 05:44 Labs: Abnormal Lab Results - Last 24 Hours (Table) 08/15/24 08/15/24 Range/Units 05:44 05:44 WBC 12.2 H (3.8-10.6) k/uL RDW 19.6 H (11.5-15.5) % Neutrophils # 9.3 H (1.3-7.7) k/uL Eosinophils # 0.8 H (0-0.7) k/uL Sodium 135 L (137-145) mmol/L Chloride 94 L (98-107) mmol/L BUN 33 H (7-17) mg/dL Creatinine 5.67 H (0.52-1.04) mg/dL Glucose 148 H (74-99) mg/dL Assessment and Plan Assessment: 1. End-stage renal disease maintained on hemodialysis on Wednesday schedule. With extra treatments on mondays. 2. Volume overload. 3. Acute hypoxic respiratory failure, currently on BiPAP. 4. CKD mineral bone disroder 5. Hypertension, volume sensitive, improved with ultrafiltration and i mprovement in volume status. Plan: continue daily dialysis. Encourage increase oral intake Adjust antihypertensive regimen based on blood pressure Try to wean off clonidine
[2024-08-15] MEDS: polyethylene glycoL 3350 17 GM POWD.PACK PO SCH (13:30)
--- NOTE | 2024-08-15 14:36 | P.PN ---
Subjective Progress Note Date: 08/15/24 Principal diagnosis: Acute hypertensive emergency with acute pulmonary edema This is a 34-year-old female patient with a known history of uncontrolled hypertension, end-stage renal disease requiring hemodialysis 4 times weekly, diabetes mellitus, TIA/CVA, optic neuritis, anemia of chronic disease. She has had multiple admissions for fluid volume overload and hypertensive emergency. She presented here again early this morning with worsening shortness of breath. She states she had dialysis 2 days ago on 08/12/2024. Chest x-ray revealed severe pulmonary edema. She was placed on BiPAP 10/5 and 40% FiO2. She was extremely hypertensive and requiring a nitroglycerin drip currently at 130 mcg/min. White count 18.5. Hemoglobin 12.8. Platelets 443. Sodium 135. Potassium 5.5. Bicarb 23. BUN 53. Creatinine 6.78. Glucose 247. proBNP 96,400. She is seen currently in the emergency department. She remains on BiPAP. She is receiving hemodialysis with a goal of 4 L to be removed today. Patient today on 08/15/2024, she is now in the ICU, undergoing hemodialysis, patient is feeling better. Breathing easier, last night she had to go on BiPAP 10/5/40%, now she is on 2 L nasal cannula, chest x-ray showed dramatic improvement in her pulmonary edema. Remains on Cleviprex at 9 mg/h, patient is on multiple cardiac meds for hypertension, and her blood pressure seems to be quite better controlled at this point. But the plan is to continue tapering the Cleviprex, and once discontinued the patient could be transferred out of the ICU to the cardiac floor. Labs reviewed WBC count is 12.2 hemoglobin is 13.3 basic metabolic profile is normal renal profile showed a BUN of 33 creatinine 5.67 Objective - Vital Signs Vital signs: Vital Signs Temp 98.4 F 08/15/24 13:29 Pulse 76 08/15/24 14:15 Resp 12 08/15/24 14:15 BP 152/91 08/15/24 14:15 Pulse Ox 100 08/15/24 14:15 FiO2 40 08/14/24 11:01 Intake & Output 08/14/24 08/15/24 08/15/24 18:59 06:59 18:59 Intake Total 401.3 033.700 6565.401 Output Total 8800 0 8500 Balance -8398.7 184.142 -7400.599 Weight 65.3 kg Intake: Intake, IV Titration 1.3 184.142 119.401 Amount Clevidipine Butyrate 25 166.267 119.401 mg In Empty Bag 1 bag @ 5 MG/HR 10 mls/hr IV .Q5H [facility] Rx#:[id number] Nitroglycerin-D5w Pmx 50 1.3 17.875 mg In Dextrose/Water 1 250ml.bag @ 20 MCG/MIN 6 mls/hr IV .Q24H [facility] Rx#: [id number] Oral 580 Hemodialysis 400 400 Output: Urine 0 0 Emesis 20 Hemodialysis 4600 4440 Hemodialysis Net Amount 4200 4040 Other: # Voids 1 - Exam GENERAL EXAM: Alert, 34-year-old female, on 2 L nasal cannula, not in distress HEAD: Normocephalic. EYES: Normal reaction of pupils, equal size. NOSE: Clear with pink turbinates. THROAT: No erythema or exudates. NECK: No masses, no JVD. CHEST: No chest wall deformity. Right sided hemodialysis catheter in place LUNGS: Minimal crackles bilaterally no rhonchi no wheezes CVS: S1 and S2 normal with no audible murmur, regular rhythm. ABDOMEN: No hepatosplenomegaly, normal bowel sounds, no guarding or rigidity. SKIN: No rashes CENTRAL NERVOUS SYSTEM: Alert and oriented x 3 no focal deficit EXTREMITIES: No clubbing edema or cyanosis - Labs CBC & Chem 7: 08/15/24 05:44 08/15/24 05:44 Labs: Abnormal Lab Results - Last 24 Hours (Table) 08/15/24 08/15/24 Range/Units 05:44 05:44 WBC 12.2 H (3.8-10.6) k/uL RDW 19.6 H (11.5-15.5) % Neutrophils # 9.3 H (1.3-7.7) k/uL Eosinophils # 0.8 H (0-0.7) k/uL Sodium 135 L (137-145) mmol/L Chloride 94 L (98-107) mmol/L BUN 33 H (7-17) mg/dL Creatinine 5.67 H (0.52-1.04) mg/dL Glucose 148 H (74-99) mg/dL Assessment and Plan Assessment: Impression: Acute hypoxemic respiratory failure secondary to an acute episode of pulmonary edema and fluid volume overload Hypertensive emergency, improving it was associated with pulmonary edema End-stage renal disease requiring hemodialysis 4 times per week Hyperkalemia secondary to above Diabetes mellitus, insulin-dependent Anemia of chronic disease History of CVA/TIA History of optic neuritis Hypothyroidism History of depression Recommendation: Continue present supportive care measures Continue to monitor in the ICU and taper down and possibly discontinue Cleviprex today. Continue the rest of the blood pressure medications including Norvasc, Apresoline, clonidine, and could add more medications if necessary. Continue hemodialysis as felt necessary by nephrology Prognosis remains guarded Monitor daily labs and daily electrolytes as well as renal profile We will continue to follow Time with Patient: Less than 30
[2024-08-15] MEDS: BUTALB/APAP/CAFF 50-325-40MG TAB PO PRN (15:06)
[2024-08-15] MEDS: cloNIDine HCL 0.2 MG TAB PO SCH (20:31)
[2024-08-16 06:33] LABS: Anisocytosis Slight; Basophils # (A) 0.1 k/uL (0-0.2); Basophils % (A) 1 %; Eosinophils # (A) 0.6 k/uL (0-0.7); Eosinophils % (A) 8 %; HCT 45.3 % (34.0-46.0); Hypochromasia Moderate; Lymphocytes # (A) 1.1 k/uL (1.0-4.8); Lymphocytes % (A) 13 %; MCH 31.9 pg (25.0-35.0); MCV 102.9 fL (80.0-100.0); Macrocytosis Moderate; Mean Platelet Volume 7.3; Monocytes # (A) 0.6 k/uL (0-1.0); Monocytes % (A) 7 %; Neutrophils # (A) 5.6 k/uL (1.3-7.7); Neutrophils % (A) 69 %; Platelet Count 532 k/uL (150-450); RDW 19.2 % (11.5-15.5); WBC 8.1 k/uL (3.8-10.6)
[2024-08-16 06:41] LABS: African American GFR (CKD) 13 (>60 ml/min/1.73 sqM); Anion Gap 15 mmol/L; Blood Urea Nitrogen 21 mg/dL (7-17); Calcium 10.3 mg/dL (8.4-10.2); Carbon Dioxide 25 mmol/L (22-30); Chloride 93 mmol/L (98-107); Glucose 213 mg/dL (74-99); Non-African American GFR(CKD) 11 (>60 ml/min/1.73 sqM); Potassium 5.3 mmol/L (3.5-5.1); Sodium 133 mmol/L (137-145)
--- NOTE | 2024-08-16 09:38 | P.HPIM ---
History of Present Illness H&P Date: 08/15/24 Chief Complaint: Shortness of breath Patient is a 34-year-old female with a past medical history of ESRD on hemodialysis TTS-currently awaiting renal and pancreas transplant, gastroparesis, diabetic neuropathy, hypothyroidism, diabetes type 2, hypertension, seizure disorder, anxiety/depression and prior history of smoking, marijuana and methamphetamine use. Patient presents to ER with complaints of worsening shortness of breath. Patient had dialysis 2 days ago on 08/12/2024. On admission patient found to be hypertensive emergency with volume overload. Patient was started on nitroglycerin drip and was transferred to MICU. Chest x-ray showed severe pulmonary edema EKG showed sinus tachycardia. Laboratory data showed WBC 18.5 hemoglobin 12.8 and platelets 443 sodium 135 potassium 5.5 chloride 94 bicarb is 23 BUN 53 and creatinine 6.78 blood sugar 247 and lactic acid 2.9 AST 46 ALT 23 and alk phos 165 and troponin 0.042 and proBNP 96,400 Review of Systems Constitutional: Patient denies any fever or chills . No generalized weakness or weight loss. Abdomen: Patient denied nausea vomiting and diarrhea and abdominal pain. Cardiovascular: Patient denies any chest pain. Complaining of short of breath no palpitations. Respiratory: patient denied any cough or sputum production. Positive for shortness of breath Neurologic: Patient denied any numbness or tingling. no headache. Musculoskeletal: Patient denies any complaints of joint swelling or deformity. Skin: Negative Psychiatric: Negative Endocrine: No heat or cold intolerance. No recent weight gain. Genitourinary: No dysuria or hematuria. All other 14 point ROS negative except the above Past Medical History Past Medical History: Diabetes Mellitus, GERD/Reflux, Hypertension, Renal Disease, Seizure Disorder, Thyroid Disorder Additional Past Medical History / Comment(s): Neuropathy, last seizure 2020, [place] stroparesis, headaches with dialysis, states "fast heart rate" since giving ., receives Hemodialysis Wednesday- and Saturdays at [facility] [place] right chest hemodialysis catheter., severe HTN. patient awaiting Kidney and Pancrease Transplant. , states sometimes she has had stroke -like symptoms but no stroke., hx of c-diff 2013. History of Any Multi-Drug Resistant Organisms: None Reported Date of last positivie culture/infection: None MDRO Source:: None Past Surgical History: Adenoidectomy, Section, Cholecystectomy, Orthopedic Surgery, Tonsillectomy Additional Past Surgical History / Comment(s): 2 KNEE SCOPES, EAR TUBES, additional left knee surgery related to fracture, new port a cath sept , eye surgeries for diabetic retinopathy. Past Anesthesia/Blood Transfusion Reactions: Previous Problems w/ Anesthesia Additional Past Anesthesia/Blood Transfusion Reaction / Comment(s): confusion Past Psychological History: Anxiety, Depression Smoking Status: Former smoker Past Alcohol Use History: None Reported Additional Past Alcohol Use History / Comment(s): quit smoking 01/08 hx of up to 3 ppd. Past Drug Use History: Marijuana, Methamphetamine Additional Drug Use History / Comment(s): previously using marijuana edibles in nov 2023. Not eating currently - Past Family History Father History Unknown: Yes Family Medical History: Unable to Obtain Mother History Unknown: Yes Family Medical History: No Reported History Grandfather History Unknown: Yes Family Medical History: Coronary Artery Disease (CAD) Additional Family Medical History / Comment(s): Diabetes mellitus type 2 Medications and Allergies Home Medications Medication Instructions Recorded Confirmed Type Docusate [Colace] 100 mg PO DAILY@0800 02/05/24 08/14/24 History Lidocaine 4% Patch 1 patch TOPICAL DAILY@0800 02/05/24 08/14/24 History Magnesium Hydroxide [Milk of 7,200 mg PO DAILY PRN 02/05/24 08/14/24 History Magnesia Concentrate] bisacodyL [Dulcolax] 10 mg RECTAL DAILY PRN 02/05/24 08/14/24 History Ipratropium-Albuterol Nebulize 3 ml INHALATION RT-TID PRN each 02/14/24 08/14/24 Rx [Duoneb 0.5 mg-3 mg/3 ml Soln] polyethylene glycoL 3350 [Miralax] 17 gm PO AC-LUNCH #527 gm 02/14/24 08/14/24 Rx Acetaminophen [Tylenol] 650 mg PO Q4H PRN 02/18/24 08/14/24 History Biotene Dry Mouth/Throat 10 ml PO BID PRN 02/18/24 08/14/24 History Melatonin 1 mg PO HS tab 02/25/24 08/14/24 Rx Butalb/APAP/Caff 50-325-40Mg 1 tab PO Q4HR PRN 03/14/24 08/14/24 History [Fioricet 50-325-40] Darbepoetin Artur [Aranesp] 40 mcg SQ MO 03/14/24 08/14/24 History Loratadine [Claritin] 5 mg PO DAILY tab 03/30/24 08/14/24 Rx INSULIN ASPART (NovoLOG) [NovoLOG See Protocol SQ ACHS 04/16/24 08/14/24 History (formulary)] Aspirin 81 mg PO DAILY@0800 #30 tab 05/18/24 08/14/24 Rx Famotidine [Pepcid] 20 mg PO BID #60 tab 07/11/24 08/14/24 Rx Insulin Glargine [Lantus Vial] 12 unit SQ BID #1 each 07/11/24 08/14/24 Rx NIFEdipine XL [Procardia XL] 60 mg PO BID@0800,1700 #60 tab 07/11/24 08/14/24 Rx Ondansetron [Zofran] 4 mg PO Q8HR PRN #20 tab 07/11/24 08/14/24 Rx Sevelamer [Renvela] 800 mg PO HS #30 tab 07/11/24 08/14/24 Rx ALPRAZolam [Xanax] 0.25 mg PO DIRECTED PRN 08/14/24 08/14/24 History Atorvastatin [Lipitor] 40 mg PO DIRECTED 08/14/24 08/14/24 History Divalproex ER [Depakote ER] 500 mg PO DIRECTED 08/14/24 08/14/24 History Folic Acid-Vit B Complex-Vit C 1 cap PO DIRECTED 08/14/24 08/14/24 History [Nephrocaps] HYDROcodone/APAP 7.5-325MG [[place] 1 tab PO DIRECTED PRN 08/14/24 08/14/24 History 7.5-325] Isosorbide Mononitrate ER [Imdur] 30 mg PO DIRECTED 08/14/24 08/14/24 History Labetalol [Trandate] 200 mg PO DIRECTED 08/14/24 08/14/24 History Levothyroxine Sodium [Synthroid] 175 mcg PO DIRECTED 08/14/24 08/14/24 History Metoclopramide [Reglan] 5 mg PO DIRECTED PRN 08/14/24 08/14/24 History Pantoprazole [Protonix] 40 mg PO DIRECTED 08/14/24 08/14/24 History [place] Caps 1 cap PO DIRECTED 08/14/24 08/14/24 History Sacubitril/Valsartan [Entresto 49 1 tab PO DIRECTED 08/14/24 08/14/24 History mg-51 mg Tablet] Sertraline [Zoloft] 200 mg PO DIRECTED 08/14/24 08/14/24 History Sevelamer [Renvela] 1,600 mg PO DIRECTED 08/14/24 08/14/24 History cloNIDine HCL [Catapres] 0.3 mg PO DIRECTED 08/14/24 08/14/24 History hydrALAZINE HCL [Apresoline] 150 mg PO DIRECTED 08/14/24 08/14/24 History methocarbamoL [Robaxin-750] 750 mg PO DIRECTED 08/14/24 08/14/24 History traZODone HCL [Desyrel] 50 mg PO DIRECTED 08/14/24 08/14/24 History Allergies Allergy/AdvReac Type Severity Reaction Status Date / Time hydromorphone HCl Allergy Anaphylaxis Verified 08/14/24 09:55 [From Dilaudid] propoxyphene Allergy Rash/Hives Verified 08/14/24 09:55 [From Darvocet-N] tramadol Allergy Anaphylaxis Verified 08/14/24 09:55 ibuprofen [From Motrin] AdvReac unable to Verified 08/14/24 09:55 take due to kidney disease venom-honey bee AdvReac passes out Verified 08/14/24 09:55 [bee venom (honey bee)] Physical Exam Vitals: Vital Signs Temp Pulse Pulse Resp BP BP Pulse Ox 08/16/24 08:16 99 08/16/24 07:00 80 12 130/76 100 08/16/24 06:00 101 H 18 154/87 99 08/16/24 05:45 96 12 134/83 100 08/16/24 05:30 89 14 158/83 100 08/16/24 05:15 106 H 24 139/87 99 08/16/24 05:00 82 12 136/85 100 08/16/24 04:45 78 12 143/94 100 08/16/24 04:30 74 15 157/105 100 08/16/24 04:15 84 20 157/97 97 08/16/24 04:00 98.1 F 80 21 141/112 100 08/16/24 03:45 80 24 160/101 100 08/16/24 03:30 78 12 120/92 100 08/16/24 03:15 94 13 138/101 96 08/16/24 03:00 88 13 146/101 96 08/16/24 02:45 86 12 147/105 100 08/16/24 02:30 89 12 148/123 100 08/16/24 02:15 93 12 135/86 98 08/16/24 02:00 77 12 144/88 100 08/16/24 01:45 82 12 162/101 100 08/16/24 01:30 84 14 173/99 100 08/16/24 01:15 87 12 146/90 100 08/16/24 01:00 75 12 132/93 100 08/16/24 00:45 75 20 131/86 100 08/16/24 00:30 75 12 142/91 100 08/16/24 00:15 74 12 151/90 99 08/16/24 00:02 73 13 131/83 99 08/16/24 00:00 99.1 F 77 15 131/83 100 08/15/24 23:45 77 13 126/85 100 08/15/24 23:30 75 21 154/95 100 08/15/24 23:15 75 12 135/87 100 08/15/24 23:00 77 12 143/90 100 08/15/24 22:45 81 24 153/96 100 08/15/24 22:30 84 14 173/102 100 08/15/24 22:15 89 12 163/99 100 08/15/24 22:00 84 13 137/86 100 08/15/24 21:45 80 24 137/87 100 08/15/24 21:30 72 12 149/93 100 08/15/24 21:15 90 12 111/64 99 08/15/24 21:00 80 12 143/78 100 08/15/24 20:45 90 14 151/101 100 08/15/24 20:30 105 H 24 149/95 99 08/15/24 20:15 98 12 162/102 99 08/15/24 20:00 98.1 F 105 H 13 161/101 99 08/15/24 19:45 90 17 158/99 99 08/15/24 19:30 89 13 159/94 100 08/15/24 19:15 87 14 157/94 100 08/15/24 19:00 85 11 L 157/98 100 08/15/24 18:45 85 15 153/81 100 08/15/24 18:30 88 12 163/93 08/15/24 18:15 79 12 170/112 08/15/24 18:00 93 12 174/115 100 08/15/24 17:45 87 11 L 173/120 08/15/24 17:30 98 16 156/89 99 08/15/24 17:15 80 18 168/102 08/15/24 17:00 80 159/100 100 08/15/24 16:45 93 28 H 183/115 100 08/15/24 16:30 89 26 H 179/109 99 08/15/24 16:15 80 16 183/111 100 08/15/24 16:00 98.1 F 80 24 185/111 100 08/15/24 15:45 91 10 L 171/106 100 08/15/24 15:30 91 14 164/110 99 08/15/24 15:15 85 12 160/92 100 08/15/24 15:00 80 13 165/101 100 08/15/24 14:45 82 11 L 158/96 100 08/15/24 14:30 80 11 L 153/93 100 08/15/24 14:15 76 12 152/91 100 08/15/24 14:00 76 11 L 155/92 100 08/15/24 13:45 72 13 143/87 100 08/15/24 13:30 83 145/93 100 08/15/24 13:29 98.4 F 71 18 137/86 08/15/24 13:15 71 137/86 100 08/15/24 13:00 81 131/88 100 08/15/24 12:45 81 13 135/91 100 08/15/24 12:30 71 13 131/88 100 08/15/24 12:15 70 10 L 129/84 100 08/15/24 12:00 98.1 F 71 12 132/85 100 08/15/24 11:45 70 12 128/80 100 08/15/24 11:30 69 15 99/67 100 08/15/24 11:15 81 16 113/74 100 08/15/24 11:00 92 12 120/73 100 08/15/24 10:45 94 14 127/76 100 08/15/24 10:30 101 H 9 L 138/80 100 08/15/24 10:15 107 H 8 L 150/85 100 08/15/24 10:00 102 H 12 130/79 100 08/15/24 09:45 93 136/79 100 08/15/24 09:30 104 H 9 L 150/88 98 Intake and Output 08/15/24 08/16/24 08/16/24 22:59 06:59 14:59 Intake Total 15.333 507.800 215.866 Output Total 100 0 Balance -84.667 507.800 215.866 Intake: Intake, IV Titration 15.333 27.800 15.866 Amount Clevidipine Butyrate 25 15.333 27.800 15.866 mg In Empty Bag 1 bag @ 5 MG/HR 10 mls/hr IV .Q5H [facility] Rx#:[id number] Oral 480 200 Output: Urine 0 0 Emesis 100 Other: Weight 65 kg PHYSICAL EXAMINATION: Patient is lying in the bed comfortably, no acute distress, awake alert and oriented. Drowsy and lethargic.. HEENT: Normocephalic. Neck is supple. Pupils reactive. Nostrils clear. Oral cavity is moist. Neck reveals no JVD, carotid bruits, or thyromegaly. CHEST EXAMINATION: Trachea is central. Symmetrical expansion. Lung armendariz clear to auscultation and percussion. CARDIAC: Normal S1, S2 with no gallops. No murmurs ABDOMEN: Soft. Bowel sounds normal. No organomegaly. No abdominal bruits. Extremities: reveal no edema. No clubbing or cyanosis Neurologically awake, alert, oriented x 2-3 with well-coordinated movements. No focal deficits noted Skin: No rash or skin lesions. Psychiatric: Coperative. Nonsuicidal Musculoskeletal: No joint swelling or deformity. Normal range of motion. Results CBC & Chem 7: 08/16/24 05:51 08/16/24 05:51 Labs: Abnormal Lab Results - Last 24 Hours (Table) 10/02/24 10/02/24 Range/Units 05:51 05:51 MCV 102.9 H (80.0-100.0) fL RDW 19.2 H (11.5-15.5) % Plt Count 532 H (150-450) k/uL Sodium 133 L (137-145) mmol/L Potassium 5.3 H (3.5-5.1) mmol/L Chloride 93 L (98-107) mmol/L BUN 21 H (7-17) mg/dL Creatinine 4.86 H (0.52-1.04) mg/dL Glucose 213 H (74-99) mg/dL Calcium 10.3 H (8.4-10.2) mg/dL Thrombosis Risk Factor Assmnt - DVT/VTE Prophylaxis DVT/VTE Prophylaxis: Pharmacologic Prophylaxis ordered - Choose All That Apply Any of the Below Risk Factors Present?: No Assessment and Plan Assessment: Acute hypoxic respiratory failure secondary to pulmonary edema and volume overload requiring BiPAP on admission currently transition to oxygen at 3 L via nasal cannula. Hypertensive emergency requiring nitroglycerin drip ESRD requiring hemodialysis 4 times per week. Next elevated proBNP level Hypokalemia 5.5 potassium. Mild hemolysis. Leukocytosis likely reactive. Diabetes type 2 insulin-dependent Hypothyroidism Anemia of chronic disease History of CVA/TIA History of optic neuritis Anxiety/depression History of marijuana use and methamphetamine use Prior history of smoking DVT prophylaxis with heparin subcu Plan: Patient will be continued on oxygen supplementation. Nitro drip is being tapered down. Patient is undergoing hemodialysis session today again. Continue blood pressure medications and titrate doses. Nephrology and critical care team is on board. Follow-up closely. Time with Patient: Greater than 30
[2024-08-16] MEDS: SODIUM ZIRCONIUM CYCLOSILICATE 10 GM PACKET PO ONE (11:09)
[2024-08-16 11:42] VITALS: BMI 23.1
--- NOTE | 2024-08-16 13:45 | P.PN ---
Subjective patient is seen for follow-up for end-stage renal disease. Status post hemodialysis yesterday with UF of 4.0 L. Seen on hemodialysis today. Blood pressure has improved significantly and in fact it dropped during treatment today and we were only able to get about 3 L. Patient is likely at her dry weight now. Objective - Vital Signs Vital signs: Vital Signs Temp 98.0 F 08/16/24 12:00 Pulse 73 08/16/24 13:00 Resp 11 L 08/16/24 13:00 BP 121/90 08/16/24 13:00 Pulse Ox 99 08/16/24 13:00 FiO2 40 08/14/24 11:01 Intake & Output 08/15/24 08/16/24 08/16/24 18:59 06:59 18:59 Intake Total 1099.934 522.600 515.866 Output Total 8600 0 0 Balance -7500.066 522.600 515.866 Weight 65 kg 65 kg Intake: Intake, IV Titration 119.934 42.600 15.866 Amount Clevidipine Butyrate 25 119.934 42.600 15.866 mg In Empty Bag 1 bag @ 5 MG/HR 10 mls/hr IV .Q5H [facility] 234 BEDS AT THE [facility] Rx#:[id number] Oral 580 480 500 Hemodialysis 400 Output: Urine 0 0 0 Emesis 120 Hemodialysis 4440 Hemodialysis Net Amount 4040 Other: # Voids 1 - Exam patient is awake, comfortable, no acute distress. 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 End-stage renal disease maintained on hemodialysis on Wednesday schedule. With extra treatments on mondays. 2. Volume overload. 3. Acute hypoxic respiratory failure, improved with improved volume status. 4. CKD mineral bone disroder 5. Hypertension, volume sensitive, improved with ultrafiltration and improvement in volume status. 6. History of diabetic gastroparesis Plan: Hemodialysis in a.m. with no significant UF as patient has likely reached her dry weight. Encourage increase oral intake Adjust antihypertensive regimen based on blood pressure Decrease clonidine
--- NOTE | 2024-08-16 15:47 | P.PN ---
Subjective Progress Note Date: 08/16/24 Principal diagnosis: Acute hypertensive emergency with acute pulmonary edema This is a 34-year-old female patient with a known history of uncontrolled hypertension, end-stage renal disease requiring hemodialysis 4 times weekly, diabetes mellitus, TIA/CVA, optic neuritis, anemia of chronic disease. She has had multiple admissions for fluid volume overload and hypertensive emergency. She presented here again early this morning with worsening shortness of breath. She states she had dialysis 2 days ago on 08/12/2024. Chest x-ray revealed severe pulmonary edema. She was placed on BiPAP 10/5 and 40% FiO2. She was extremely hypertensive and requiring a nitroglycerin drip currently at 130 mcg/min. White count 18.5. Hemoglobin 12.8. Platelets 443. Sodium 135. Potassium 5.5. Bicarb 23. BUN 53. Creatinine 6.78. Glucose 247. proBNP 96,400. She is seen currently in the emergency department. She remains on BiPAP. She is receiving hemodialysis with a goal of 4 L to be removed today. Patient today on 08/15/2024, she is now in the ICU, undergoing hemodialysis, patient is feeling better. Breathing easier, last night she had to go on BiPAP 10/5/40%, now she is on 2 L nasal cannula, chest x-ray showed dramatic improvement in her pulmonary edema. Remains on Cleviprex at 9 mg/h, patient is on multiple cardiac meds for hypertension, and her blood pressure seems to be quite better controlled at this point. But the plan is to continue tapering the Cleviprex, and once discontinued the patient could be transferred out of the ICU to the cardiac floor. Labs reviewed WBC count is 12.2 hemoglobin is 13.3 basic metabolic profile is normal renal profile showed a BUN of 33 creatinine 5.67 Patient was evaluated today on 08/16/2024, remains in the ICU, remains on hemodialysis, blood pressure seems to be better controlled, patient is maximized on multiple blood pressure medications. Hence considering the patient is off Cleviprex, and she is off nitroglycerin, I will arrange for the patient to transfer sometime later today to a monitored bed on 3 S. In the meantime we will continue blood pressure medications for adequate control of the blood pressure, and continue hemodialysis. WBC count is 8.1 hemoglobin is 14 basic metabolic profile is normal BUN is 21 creatinine 4.86. Bicarb is 25 Objective - Vital Signs Vital signs: Vital Signs Temp 98.0 F 08/16/24 12:00 Pulse 80 08/16/24 14:00 Resp 14 08/16/24 14:00 BP 121/76 08/16/24 14:00 Pulse Ox 100 08/16/24 14:00 FiO2 40 08/14/24 11:01 Intake & Output 08/15/24 08/16/24 08/16/24 18:59 06:59 18:59 Intake Total 1099.934 522.600 515.866 Output Total 8600 0 0 Balance -7500.066 522.600 515.866 Weight 65 kg 65 kg Intake: Intake, IV Titration 119.934 42.600 15.866 Amount Clevidipine Butyrate 25 119.934 42.600 15.866 mg In Empty Bag 1 bag @ 5 MG/HR 10 mls/hr IV .Q5H [facility] Rx#:[id number] Oral 580 480 500 Hemodialysis 400 Output: Urine 0 0 0 Emesis 120 Hemodialysis 4440 Hemodialysis Net Amount 4040 Other: # Voids 1 - Exam GENERAL EXAM: Alert, 34-year-old female, on 2 L nasal cannula, not in distress, O2 saturation 100% HEAD: Normocephalic. EYES: Normal reaction of pupils, equal size. NOSE: Clear with pink turbinates. THROAT: No erythema or exudates. NECK: No masses, no JVD. CHEST: No chest wall deformity. Right sided hemodialysis catheter in place LUNGS: Minimal crackles bilaterally no rhonchi no wheezes CVS: S1 and S2 normal with no audible murmur, regular rhythm. ABDOMEN: No hepatosplenomegaly, normal bowel sounds, no guarding or rigidity. SKIN: No rashes CENTRAL NERVOUS SYSTEM: Alert and oriented x 3 no focal deficit EXTREMITIES: No clubbing edema or cyanosis - Labs CBC & Chem 7: 08/16/24 05:51 08/16/24 05:51 Labs: Abnormal Lab Results - Last 24 Hours (Table) 08/16/24 08/16/24 Range/Units 05:51 05:51 MCV 102.9 H (80.0-100.0) fL RDW 19.2 H (11.5-15.5) % Plt Count 532 H (150-450) k/uL Sodium 133 L (137-145) mmol/L Potassium 5.3 H (3.5-5.1) mmol/L Chloride 93 L (98-107) mmol/L BUN 21 H (7-17) mg/dL Creatinine 4.86 H (0.52-1.04) mg/dL Glucose 213 H (74-99) mg/dL Calcium 10.3 H (8.4-10.2) mg/dL Assessment and Plan Assessment: Impression: Acute hypoxemic respiratory failure secondary to an acute episode of pulmonary edema and fluid volume overload Hypertensive emergency, improving it was associated with pulmonary edema End-stage renal disease requiring hemodialysis 4 times per week Hyperkalemia secondary to above Diabetes mellitus, insulin-dependent Anemia of chronic disease History of CVA/TIA History of optic neuritis Hypothyroidism History of depression Recommendation: Transfer patient to 3 S. Continue the rest of the blood pressure medications including Norvasc, Apresoline, clonidine, labetalol Continue hemodialysis Prognosis remains guarded Overall long-term prognosis remains poor and guarded, We will continue to follow Time with Patient: Less than 30
[2024-08-16] MEDS ORDERED: DEXTROSE 50% SYRINGE 50 ML IVP PRN ×2 (16:39)
[2024-08-16] MEDS: INSULIN ASPART (NovoLOG) 100 UNIT/ML VIAL SQ SCH (16:53)
[2024-08-16] MEDS: HEPARIN SODIUM,PORCINE 5,000 UNIT/ML 1 ML VIAL SQ SCH (20:00)
[2024-08-16] MEDS: cloNIDine HCL 0.1 MG TAB PO SCH (21:19)
[2024-08-16] MEDS: MORPHINE SULFATE 2 MG/ML SYRINGE IVP STA (23:00)
[2024-08-17 07:04] LABS: Anisocytosis Slight; Basophils # (A) 0.1 k/uL (0-0.2); Basophils % (A) 1 %; Eosinophils # (A) 0.6 k/uL (0-0.7); Eosinophils % (A) 8 %; HCT 45.6 % (34.0-46.0); Hypochromasia Moderate; Lymphocytes # (A) 1.2 k/uL (1.0-4.8); Lymphocytes % (A) 15 %; MCH 31.5 pg (25.0-35.0); MCHC 30.6 g/dL (31.0-37.0); Macrocytosis Moderate; Mean Platelet Volume 7.4; Monocytes # (A) 0.6 k/uL (0-1.0); Monocytes % (A) 7 %; Neutrophils # (A) 5.2 k/uL (1.3-7.7); Neutrophils % (A) 66 %; Platelet Count 470 k/uL (150-450); RBC 4.43 m/uL (3.80-5.40); RDW 19.2 % (11.5-15.5); WBC 7.8 k/uL (3.8-10.6)
[2024-08-17 07:21] LABS: African American GFR (CKD) 12 (>60 ml/min/1.73 sqM); Anion Gap 15 mmol/L; Blood Urea Nitrogen 24 mg/dL (7-17); Calcium 9.8 mg/dL (8.4-10.2); Carbon Dioxide 25 mmol/L (22-30); Chloride 93 mmol/L (98-107); Glucose 225 mg/dL (74-99); Non-African American GFR(CKD) 10 (>60 ml/min/1.73 sqM); Potassium 4.9 mmol/L (3.5-5.1); Sodium 133 mmol/L (137-145)
--- NOTE | 2024-08-17 10:50 | P.PN ---
Subjective patient is seen for follow-up for end-stage renal disease. Status post hemodialysis yesterday with UF of 3.0 L. Seen on hemodialysis today. Tolerating treatment well. Goal UF today about 2 L. Objective - Vital Signs Vital signs: Vital Signs Temp 98.1 F 08/17/24 08:20 Pulse 83 08/17/24 08:20 Resp 17 08/17/24 08:20 BP 163/96 08/17/24 08:20 Pulse Ox 100 08/17/24 08:21 FiO2 40 08/14/24 11:01 Intake & Output 08/16/24 08/17/24 08/17/24 18:59 06:59 18:59 Intake Total 846.203 2344 Output Total 0 7000 Balance 765.866 -5820 Weight 65 kg 55.8 kg Intake: Intake, IV Titration 15.866 Amount Clevidipine Butyrate 25 15.866 mg In Empty Bag 1 bag @ 5 MG/HR 10 mls/hr IV .Q5H [facility] Rx#:[id number] Oral 750 180 Hemodialysis 1000 Output: Urine 0 Hemodialysis 4000 Hemodialysis Net Amount 3000 - Exam patient is awake, comfortable, no acute distress. Examination of the heart S1 and S2 Examination of the lungs shows bilateral breath sounds are heard Abdomen is soft nontender Examination of lower extremities shows no significant edema [employer] exam grossly intact - Labs CBC & Chem 7: 08/17/24 06:28 08/17/24 06:28 Labs: Abnormal Lab Results - Last 24 Hours (Table) 08/17/24 08/17/24 Range/Units 06:28 06:28 MCV 103.0 H (80.0-100.0) fL MCHC 30.6 L (31.0-37.0) g/dL RDW 19.2 H (11.5-15.5) % Plt Count 470 H (150-450) k/uL Sodium 133 L (137-145) mmol/L Chloride 93 L (98-107) mmol/L BUN 24 H (7-17) mg/dL Creatinine 5.19 H (0.52-1.04) mg/dL Glucose 225 H (74-99) mg/dL Assessment and Plan Assessment: 1. End-stage renal disease maintained on hemodialysis on Wednesday schedule with extra treatments on mondays. 2. Volume overload. 3. Acute hypoxic respiratory failure, improved with improved volume status. 4. CKD mineral bone disroder 5. Hypertension, volume sensitive, improved with ultrafiltration and improvement in volume status. 6. History of diabetic gastroparesis Plan: Hemodialysis today with goal UF about 2 L. Next dialysis on 08/19/2024 Encourage increase oral intake Adjust antihypertensive regimen based on blood pressure
[2024-08-17 14:20] LABS: Glucose,Whole Blood 214 mg/dL (70-110)
--- NOTE | 2024-08-17 16:38 | P.PN ---
Subjective Progress Note Date: 08/17/24 Principal diagnosis: Acute hypertensive emergency with acute pulmonary edema This is a 34-year-old female patient with a known history of uncontrolled hypertension, end-stage renal disease requiring hemodialysis 4 times weekly, diabetes mellitus, TIA/CVA, optic neuritis, anemia of chronic disease. She has had multiple admissions for fluid volume overload and hypertensive emergency. She presented here again early this morning with worsening shortness of breath. She states she had dialysis 2 days ago on 08/12/2024. Chest x-ray revealed severe pulmonary edema. She was placed on BiPAP 10/5 and 40% FiO2. She was extremely hypertensive and requiring a nitroglycerin drip currently at 130 mcg/min. White count 18.5. Hemoglobin 12.8. Platelets 443. Sodium 135. Potassium 5.5. Bicarb 23. BUN 53. Creatinine 6.78. Glucose 247. proBNP 96,400. She is seen currently in the emergency department. She remains on BiPAP. She is receiving hemodialysis with a goal of 4 L to be removed today. Patient today on 08/15/2024, she is now in the ICU, undergoing hemodialysis, patient is feeling better. Breathing easier, last night she had to go on BiPAP 10/5/40%, now she is on 2 L nasal cannula, chest x-ray showed dramatic improvement in her pulmonary edema. Remains on Cleviprex at 9 mg/h, patient is on multiple cardiac meds for hypertension, and her blood pressure seems to be quite better controlled at this point. But the plan is to continue tapering the Cleviprex, and once discontinued the patient could be transferred out of the ICU to the cardiac floor. Labs reviewed WBC count is 12.2 hemoglobin is 13.3 basic metabolic profile is normal renal profile showed a BUN of 33 creatinine 5.67 Patient was evaluated today on 08/16/2024, remains in the ICU, remains on hemodialysis, blood pressure seems to be better controlled, patient is maximized on multiple blood pressure medications. Hence considering the patient is off Cleviprex, and she is off nitroglycerin, I will arrange for the patient to transfer sometime later today to a monitored bed on 3 S. In the meantime we will continue blood pressure medications for adequate control of the blood pressure, and continue hemodialysis. WBC count is 8.1 hemoglobin is 14 basic metabolic profile is normal BUN is 21 creatinine 4.86. Bicarb is 25 Patient was evaluated today on 08/17/2024, patient is doing well, on hemodialysis, seems very comfortable, not in any distress, but she intermittently moans and groans. Does not seem to be quite pleased with her overall condition. During my evaluation the patient was having hemodialysis, and did not seem to be in any distress.WBC of 7.8 hemoglobin 14 electrolytes are normal BUN is 24 creatinine 5.19 Objective - Vital Signs Vital signs: Vital Signs Temp 98.2 F 08/17/24 15:28 Pulse 89 08/17/24 15:28 Resp 16 08/17/24 15:28 BP 112/70 08/17/24 15:28 Pulse Ox 99 08/17/24 15:28 FiO2 40 08/14/24 11:01 Intake & Output 08/16/24 08/17/24 08/17/24 18:59 06:59 18:59 Intake Total 804.387 2383 2940 Output Total 0 7000 2400 Balance 765.866 -5820 540 Weight 65 kg 55.8 kg Intake: Intake, IV Titration 15.866 Amount Clevidipine Butyrate 25 15.866 mg In Empty Bag 1 bag @ 5 MG/HR 10 mls/hr IV .Q5H [facility] Rx#:[id number] Oral 750 180 540 Hemodialysis 1000 2400 Output: Urine 0 Hemodialysis 4000 400 Hemodialysis Net Amount 3000 2000 - Exam GENERAL EXAM: Alert, 34-year-old female, on 2 L nasal cannula, not in distress, O2 saturation 96 to 99% HEAD: Normocephalic. EYES: Normal reaction of pupils, equal size. NOSE: Clear with pink turbinates. THROAT: No erythema or exudates. NECK: No masses, no JVD. CHEST: No chest wall deformity. Right sided hemodialysis catheter in place LUNGS: Clear bilaterally no crackles rhonchi or wheezes CVS: S1 and S2 normal with no audible murmur, regular rhythm. ABDOMEN: No hepatosplenomegaly, normal bowel sounds, no guarding or rigidity. SKIN: No rashes CENTRAL NERVOUS SYSTEM: alert and oriented x 3 no focal deficit Psychiatric: Depressed mood, blunted affect, otherwise normal mental status examination EXTREMITIES: No clubbing edema or cyanosis - Labs CBC & Chem 7: 08/17/24 06:28 10/03/24 06:28 Labs: Abnormal Lab Results - Last 24 Hours (Table) 08/17/24 08/17/24 08/17/24 Range/Units 06:28 06:28 14:18 MCV 103.0 H (80.0-100.0) fL MCHC 30.6 L (31.0-37.0) g/dL RDW 19.2 H (11.5-15.5) % Plt Count 470 H (150-450) k/uL Sodium 133 L (137-145) mmol/L Chloride 93 L (98-107) mmol/L BUN 24 H (7-17) mg/dL Creatinine 5.19 H (0.52-1.04) mg/dL Glucose 225 H (74-99) mg/dL POC Glucose (mg/dL) 214 H (70-110) mg/dL Assessment and Plan Assessment: Impression: Acute hypoxemic respiratory failure secondary to an acute episode of pulmonary edema and fluid volume overload Hypertensive emergency, improving it was associated with pulmonary edema End-stage renal disease requiring hemodialysis 4 times per week Hyperkalemia secondary to above Diabetes mellitus, insulin-dependent Anemia of chronic disease History of CVA/TIA History of optic neuritis Hypothyroidism History of depression Recommendation: Continue present supportive care measures Continue to monitor blood pressure and continue the same medications for blood pressure as she is presently on Continue hemodialysis Consider follow-up chest x-ray in the next 24 hours Consider discharge planning once she is cleared by nephrology. We will continue to follow Time with Patient: Less than 30
[2024-08-17 16:48] LABS: Glucose,Whole Blood 217 mg/dL (70-110)
[2024-08-17 20:13] LABS: Glucose,Whole Blood 267 mg/dL (70-110)
[2024-08-18 06:06] LABS: Glucose,Whole Blood 242 mg/dL (70-110)
[2024-08-18 06:59] LABS: Glucose,Whole Blood 101 mg/dL (70-110)
[2024-08-18 07:00] LABS: Glucose,Whole Blood 206 mg/dL (70-110)
[2024-08-18 07:01] LABS: Glucose,Whole Blood 149 mg/dL (70-110)
[2024-08-18 07:01] LABS: Glucose,Whole Blood 353 mg/dL (70-110)
[2024-08-18 07:01] LABS: Glucose,Whole Blood 419 mg/dL (70-110)
--- NOTE | 2024-08-18 08:15 | XR ---
EXAMINATION TYPE: XR chest 1V portable DATE OF EXAM: 08/18/2024 COMPARISON: 08/15/2024 HISTORY: Chest pain TECHNIQUE: Single frontal view of the chest is obtained. FINDINGS: There is no focal air space opacity, pleural effusion, or pneumothorax seen. The cardiac silhouette size is within normal limits. Large bore central venous line unchanged in po sition. The osseous structures are intact. IMPRESSION: 1. No acute process. [facility], , 08/18/2024 8:12 AM
--- NOTE | 2024-08-18 11:23 | P.PN ---
Subjective Progress Note Date: 08/16/24 Patient is a 34-year-old female with a past medical history of ESRD on hemodialysis TTS-currently awaiting renal and pancreas transplant, gastroparesis, diabetic neuropathy, hypothyroidism, diabetes type 2, hypertension, seizure disorder, anxiety/depression and prior history of smoking, marijuana and methamphetamine use. Patient presents to ER with complaints of worsening shortness of breath. Patient had dialysis 2 days ago on 08/12/2024. On admission patient found to be hypertensive emergency with volume overload. Patient was started on nitroglycerin drip and was transferred to MICU. Chest x-ray showed severe pulmonary edema EKG showed sinus tachycardia. Laboratory data showed WBC 18.5 hemoglobin 12.8 and platelets 443 sodium 135 potassium 5.5 chloride 94 bicarb is 23 BUN 53 and creatinine 6.78 blood sugar 247 and lactic acid 2.9 AST 46 ALT 23 and alk phos 165 and troponin 0.042 and proBNP 96,400 08/16/2024 Patient is the MICU. Awake alert and oriented x 3. Currently on 2 L via nasal cannula. Patient is undergoing hemodialysis again today. Patient is off nitro drip and Cleviprex drip. Blood pressure is fairly controlled. Continued on blood pressure medications. Laboratory data showed WBC 8.1 hemoglobin 14.0 platelets 532 sodium 133 potassium 5.3 chloride 93 bicarb is 25 BUN 21 and creatinine 4.86 and blood sugar 213 and calcium 10.3 Nephrology and pulmonary is on board. Current medications reviewed. Objective - Vital Signs Vital signs: Vital Signs Temp 98.1 F 08/16/24 04:00 Pulse 80 08/16/24 07:00 Resp 12 08/16/24 07:00 BP 130/76 08/16/24 07:00 Pulse Ox 99 08/16/24 08:16 FiO2 40 08/14/24 11:01 Intake & Output 08/15/24 08/16/24 08/16/24 18:59 06:59 18:59 Intake Total 1099.934 522.600 215.866 Output Total 8600 0 Balance -7500.066 522.600 215.866 Weight 65 kg Intake: Intake, IV Titration 119.934 42.600 15.866 Amount Clevidipine Butyrate 25 119.934 42.600 15.866 mg In Empty Bag 1 bag @ 5 MG/HR 10 mls/hr IV .Q5H [facility] Rx#:[id number] Oral 580 480 200 Hemodialysis 400 Output: Urine 0 0 Emesis 120 Hemodialysis 4440 Hemodialysis Net Amount 4040 Other: # Voids 1 - Exam PHYSICAL EXAMINATION: Patient is lying in the bed comfortably, no acute distress, awake alert and oriented. Drowsy and lethargic.. HEENT: Normocephalic. Neck is supple. Pupils reactive. Nostrils clear. Oral cavity is moist. Neck reveals no JVD, carotid bruits, or thyromegaly. CHEST EXAMINATION: Trachea is central. Symmetrical expansion. Lung armendariz clear to auscultation and percussion. CARDIAC: Normal S1, S2 with no gallops. No murmurs ABDOMEN: Soft. Bowel sounds normal. No organomegaly. No abdominal bruits. Extremities: reveal no edema. No clubbing or cyanosis Neurologically awake, alert, oriented x 2-3 with well-coordinated movements. No focal deficits noted Skin: No rash or skin lesions. Psychiatric: Coperative. Nonsuicidal Musculoskeletal: No joint swelling or deformity. Normal range of motion. - Labs CBC & Chem 7: 08/17/24 06:28 08/17/24 06:28 Labs: Abnormal Lab Results - Last 24 Hours (Table) 08/16/24 08/16/24 Range/Units 05:51 05:51 MCV 102.9 H (80.0-100.0) fL RDW 19.2 H (11.5-15.5) % Plt Count 532 H (150-450) k/uL Sodium 133 L (137-145) mmol/L Potassium 5.3 H (3.5-5.1) mmol/L Chloride 93 L (98-107) mmol/L BUN 21 H (7-17) mg/dL Creatinine 4.86 H (0.52-1.04) mg/dL Glucose 213 H (74-99) mg/dL Calcium 10.3 H (8.4-10.2) mg/dL Assessment and Plan Assessment: Acute hypoxic respiratory failure secondary to pulmonary edema and volume overload requiring BiPAP on admission currently transition to oxygen at 2 L via nasal cannula. Hypertensive emergency requiring nitroglycerin drip. Currently off drip. ESRD requiring hemodialysis 4 times per week. Next elevated proBNP level Hyperkalemia Leukocytosis likely reactive. Diabetes type 2 insulin-dependent Hypothyroidism Anemia of chronic disease History of CVA/TIA History of optic neuritis Anxiety/depression History of marijuana use and methamphetamine use Prior history of smoking DVT prophylaxis with heparin subcu Plan: Patient will be continued on oxygen supplementation. Nitro drip and Cleviprex drip has been discontinued.. Patient is undergoing hemodialysis session today again. Continue blood pressure medications and titrate doses. Nephrology and critical care team is on board. Follow-up closely. Time with Patient: Greater than 30
--- NOTE | 2024-08-18 11:25 | P.PN ---
Subjective Progress Note Date: 08/17/24 Patient is a 34-year-old female with a past medical history of ESRD on hemodialysis TTS-currently awaiting renal and pancreas transplant, gastroparesis, diabetic neuropathy, hypothyroidism, diabetes type 2, hypertension, seizure disorder, anxiety/depression and prior history of smoking, marijuana and methamphetamine use. Patient presents to ER with complaints of worsening shortness of breath. Patient had dialysis 2 days ago on 08/12/2024. On admission patient found to be hypertensive emergency with volume overload. Patient was started on nitroglycerin drip and was transferred to MICU. Chest x-ray showed severe pulmonary edema EKG showed sinus tachycardia. Laboratory data showed WBC 18.5 hemoglobin 12.8 and platelets 443 sodium 135 potassium 5.5 chloride 94 bicarb is 23 BUN 53 and creatinine 6.78 blood sugar 247 and lactic acid 2.9 AST 46 ALT 23 and alk phos 165 and troponin 0.042 and proBNP 96,400 08/16/2024 Patient is the MICU. Awake alert and oriented x 3. Currently on 2 L via nasal cannula. Patient is undergoing hemodialysis again today. Patient is off nitro drip and Cleviprex drip. Blood pressure is fairly controlled. Continued on blood pressure medications. Laboratory data showed WBC 8.1 hemoglobin 14.0 platelets 532 sodium 133 potassium 5.3 chloride 93 bicarb is 25 BUN 21 and creatinine 4.86 and blood sugar 213 and calcium 10.3 Nephrology and pulmonary is on board. 08/17/2024 Patient is transferred to medical floor. Complains of migraine headache. No complaints of chest pain or shortness of breath. Patient underwent hemodialysis today. Tolerating well. Blood pressure is high this morning with SBP in 180s. Patient was given all her blood pressure medications requiring oxygen at 2 L via nasal cannula. Laboratory data showed WBC 7.8 hemoglobin 14.0 and platelets 470 sodium 133 potassium 4.9 chloride 93 bicarb is 25 BUN 24 and creatinine 5.19 and blood sugar 225 and calcium 9.8. Current medications reviewed. Objective - Vital Signs Vital signs: Vital Signs Temp 97.9 F 08/17/24 20:00 Pulse 89 08/18/24 08:20 Resp 16 08/18/24 08:20 BP 136/77 08/18/24 04:00 Pulse Ox 98 08/18/24 04:00 FiO2 40 08/14/24 11:01 Intake & Output 08/17/24 08/18/24 08/18/24 18:59 06:59 18:59 Intake Total 3180 472 Output Total 2400 Balance 780 472 Weight 62 kg Intake: Oral 780 472 Hemodialysis 2400 Output: Hemodialysis 400 Hemodialysis Net Amount 2000 - Exam PHYSICAL EXAMINATION: Patient is lying in the bed comfortably, no acute distress, awake alert and oriented. Drowsy and lethargic.. HEENT: Normocephalic. Neck is supple. Pupils reactive. Nostrils clear. Oral cavity is moist. Neck reveals no JVD, carotid bruits, or thyromegaly. CHEST EXAMINATION: Trachea is central. Symmetrical expansion. Lung armendariz clear to auscultation and percussion. CARDIAC: Normal S1, S2 with no gallops. No murmurs ABDOMEN: Soft. Bowel sounds normal. No organomegaly. No abdominal bruits. Extremities: reveal no edema. No clubbing or cyanosis Neurologically awake, alert, oriented x 2-3 with well-coordinated movements. No focal deficits noted Skin: No rash or skin lesions. Psychiatric: Coperative. Nonsuicidal Musculoskeletal: No joint swelling or deformity. Normal range of motion. - Labs CBC & Chem 7: 08/17/24 06:28 08/17/24 06:28 Labs: Abnormal Lab Results - Last 24 Hours (Table) 08/16/24 08/16/24 08/16/24 Range/Units 16:36 16:50 20:03 POC Glucose (mg/dL) 419 H 353 H 149 H (70-110) mg/dL 08/17/24 08/17/24 08/17/24 Range/Units 06:09 14:18 16:46 POC Glucose (mg/dL) 206 H 214 H 217 H (70-110) mg/dL 08/17/24 08/18/24 Range/Units 19:58 05:56 POC Glucose (mg/dL) 267 H 242 H (70-110) mg/dL Assessment and Plan Assessment: Acute hypoxic respiratory failure secondary to pulmonary edema and volume overload requiring BiPAP on admission currently transition to oxygen at 2 L via nasal cannula. Hypertensive emergency requiring nitroglycerin drip. Currently off drip. ESRD requiring hemodialysis 4 times per week. Next elevated proBNP level Hyperkalemia improved. Leukocytosis likely reactive. Diabetes type 2 insulin-dependent Hypothyroidism Anemia of chronic disease History of CVA/TIA History of optic neuritis Anxiety/depression History of marijuana use and methamphetamine use Prior history of smoking DVT prophylaxis with heparin subcu Plan: Patient will be continued on oxygen supplementation. Nitro drip and Cleviprex drip has been discontinued.. Patient is transferred to medical floor. Patient is undergoing hemodialysis session today again. Continue blood pressure medications and titrate doses. Nephrology and critical care team is on board. Follow-up closely. Time with Patient: Greater than 30
[2024-08-18 11:31] LABS: Glucose,Whole Blood 478 mg/dL (70-110)
[2024-08-18 11:31] LABS: Glucose,Whole Blood 463 mg/dL (70-110)
[2024-08-18 11:56] LABS: Glucose,Whole Blood 380 mg/dL (70-110)
[2024-08-18 11:56] LABS: Glucose,Whole Blood 361 mg/dL (70-110)
[2024-08-18 11:56] LABS: Glucose,Whole Blood 417 mg/dL (70-110)
[2024-08-18 11:56] LABS: Glucose,Whole Blood 374 mg/dL (70-110)
[2024-08-18 11:57] LABS: Glucose,Whole Blood 166 mg/dL (70-110)
[2024-08-18 11:57] LABS: Glucose,Whole Blood 98 mg/dL (70-110)
[2024-08-18 11:57] LABS: Glucose,Whole Blood 146 mg/dL (70-110)
[2024-08-18 11:57] LABS: Glucose,Whole Blood 281 mg/dL (70-110)
[2024-08-18 11:57] LABS: Glucose,Whole Blood 225 mg/dL (70-110)
[2024-08-18 11:58] LABS: Glucose,Whole Blood 215 mg/dL (70-110)
[2024-08-18 11:58] LABS: Glucose,Whole Blood 241 mg/dL (70-110)
--- NOTE | 2024-08-18 14:28 | P.PN ---
Subjective Progress Note Date: 08/18/24 Principal diagnosis: Acute hypertensive emergency with acute pulmonary edema This is a 34-year-old female patient with a known history of uncontrolled hypertension, end-stage renal disease requiring hemodialysis 4 times weekly, diabetes mellitus, TIA/CVA, optic neuritis, anemia of chronic disease. She has had multiple admissions for fluid volume overload and hypertensive emergency. She presented here again early this morning with worsening shortness of breath. She states she had dialysis 2 days ago on 08/12/2024. Chest x-ray revealed severe pulmonary edema. She was placed on BiPAP 10/5 and 40% FiO2. She was extremely hypertensive and requiring a nitroglycerin drip currently at 130 mcg/min. White count 18.5. Hemoglobin 12.8. Platelets 443. Sodium 135. Potassium 5.5. Bicarb 23. BUN 53. Creatinine 6.78. Glucose 247. proBNP 96,400. She is seen currently in the emergency department. She remains on BiPAP. She is receiving hemodialysis with a goal of 4 L to be removed today. Patient today on 08/15/2024, she is now in the ICU, undergoing hemodialysis, patient is feeling better. Breathing easier, last night she had to go on BiPAP 10/5/40%, now she is on 2 L nasal cannula, chest x-ray showed dramatic improvement in her pulmonary edema. Remains on Cleviprex at 9 mg/h, patient is on multiple cardiac meds for hypertension, and her blood pressure seems to be quite better controlled at this point. But the plan is to continue tapering the Cleviprex, and once discontinued the patient could be transferred out of the ICU to the cardiac floor. Labs reviewed WBC count is 12.2 hemoglobin is 13.3 basic metabolic profile is normal renal profile showed a BUN of 33 creatinine 5.67 Patient was evaluated today on 08/16/2024, remains in the ICU, remains on hemodialysis, blood pressure seems to be better controlled, patient is maximized on multiple blood pressure medications. Hence considering the patient is off Cleviprex, and she is off nitroglycerin, I will arrange for the patient to transfer sometime later today to a monitored bed on 3 S. In the meantime we will continue blood pressure medications for adequate control of the blood pressure, and continue hemodialysis. WBC count is 8.1 hemoglobin is 14 basic metabolic profile is normal BUN is 21 creatinine 4.86. Bicarb is 25 Patient was evaluated today on 08/17/2024, patient is doing well, on hemodialysis, seems very comfortable, not in any distress, but she intermittently moans and groans. Does not seem to be quite pleased with her overall condition. During my evaluation the patient was having hemodialysis, and did not seem to be in any distress.WBC of 7.8 hemoglobin 14 electrolytes are normal BUN is 24 creatinine 5.19 Reevaluate today on 08/18/2024, patient is doing great, hardly any pulmonary symptoms, however the patient remains extremely quiet, and she has a very dull affect. Very depressed mood.On room air, O2 sats is 100% blood pressure is normal 142/82, patient remains on intermittent hemodialysis. Objective - Vital Signs Vital signs: Vital Signs Temp 98.2 F 08/18/24 11:59 Pulse 97 08/18/24 11:59 Resp 16 08/18/24 11:59 BP 132/82 08/18/24 11:59 Pulse Ox 100 08/18/24 11:59 FiO2 40 08/14/24 11:01 Intake & Output 08/17/24 08/18/24 08/18/24 18:59 06:59 18:59 Intake Total 3180 472 Output Total 2400 Balance 780 472 Weight 62 kg Intake: Oral 780 472 Hemodialysis 2400 Output: Hemodialysis 400 Hemodialysis Net Amount 1999 Other: # Voids 2 - Exam GENERAL EXAM: Alert, 34-year-old female, on room air HEAD: Normocephalic. EYES: Normal reaction of pupils, equal size. NOSE: Clear with pink turbinates. THROAT: No erythema or exudates. NECK: No masses, no JVD. CHEST: No chest wall deformity. Right sided hemodialysis catheter in place LUNGS: Clear bilaterally no crackles rhonchi or wheezes CVS: S1 and S2 normal with no audible murmur, regular rhythm. ABDOMEN: No hepatosplenomegaly, normal bowel sounds, no guarding or rigidity. SKIN: No rashes CENTRAL NERVOUS SYSTEM: alert and oriented x 3 no focal deficit Psychiatric: Depressed mood, blunted affect, otherwise normal mental status examination EXTREMITIES: No clubbing edema or cyanosis - Labs CBC & Chem 7: 08/17/24 06:28 08/17/24 06:28 Labs: Abnormal Lab Results - Last 24 Hours (Table) 08/14/24 08/14/24 08/14/24 Range/Units 16:07 16:46 20:10 POC Glucose (mg/dL) 374 H 417 H 361 H (70-110) mg/dL 08/14/24 08/15/24 08/15/24 Range/Units 21:01 07:17 11:12 POC Glucose (mg/dL) 380 H 166 H 146 H (70-110) mg/dL 08/15/24 08/15/24 08/16/24 Range/Units 16:35 20:16 06:27 POC Glucose (mg/dL) 225 H 281 H 215 H (70-110) mg/dL 08/16/24 08/16/24 08/16/24 Range/Units 11:14 16:36 16:50 POC Glucose (mg/dL) 241 H 419 H 353 H (70-110) mg/dL 08/16/24 08/17/24 08/17/24 Range/Units 20:03 06:09 16:46 POC Glucose (mg/dL) 149 H 206 H 217 H (70-110) mg/dL 08/17/24 08/18/24 08/18/24 Range/Units 19:58 05:56 11:29 POC Glucose (mg/dL) 267 H 242 H 463 H (70-110) mg/dL 08/18/24 Range/Units 11:30 POC Glucose (mg/dL) 478 H (70-110) mg/dL Assessment and Plan Assessment: Impression: Acute hypoxemic respiratory failure secondary to an acute episode of pulmonary edema and fluid volume overload Hypertensive emergency, improving it was associated with pulmonary edema End-stage renal disease requiring hemodialysis 4 times per week Hyperkalemia secondary to above Diabetes mellitus, insulin-dependent Anemia of chronic disease History of CVA/TIA History of optic neuritis Hypothyroidism History of depression Recommendation: Continue present supportive care measures Continue blood pressure meds Continue hemodialysis Reviewed chest x-ray from today, showed complete resolution of her pulmonary edema Will clear for discharge if cleared by other case consultant Time with Patient: Less than 30
--- NOTE | 2024-08-18 15:16 | P.PN ---
Subjective patient is seen for follow-up for end-stage renal disease. Status post hemodialysis yesterday with UF of 2.0 L. Complaining of nausea. No complaints of shortness of breath. Patient has just received Compazine. Objective - Vital Signs Vital signs: Vital Signs Temp 98.2 F 08/18/24 11:59 Pulse 97 08/18/24 14:00 Resp 16 08/18/24 14:00 BP 132/82 08/18/24 11:59 Pulse Ox 100 08/18/24 11:59 FiO2 40 08/14/24 11:01 Intake & Output 08/17/24 08/18/24 08/18/24 18:59 06:59 18:59 Intake Total 3180 472 Output Total 2400 Balance 780 472 Weight 62 kg Intake: Oral 780 472 Hemodialysis 2400 Output: Hemodialysis 400 Hemodialysis Net Amount 2000 Other: # Voids 2 - Exam patient is awake, comfortable, no acute distress. 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 - Labs CBC & Chem 7: 08/17/24 06:28 08/17/24 06:28 Labs: Abnormal Lab Results - Last 24 Hours (Table) 08/14/24 08/14/24 08/14/24 Range/Units 16:07 16:46 20:10 POC Glucose (mg/dL) 374 H 417 H 361 H (70-110) mg/dL 08/14/24 08/15/24 08/15/24 Range/Units 21:01 07:17 11:12 POC Glucose (mg/dL) 380 H 166 H 146 H (70-110) mg/dL 08/15/24 08/15/24 08/16/24 Range/Units 16:35 20:16 06:27 POC Glucose (mg/dL) 225 H 281 H 215 H (70-110) mg/dL 08/16/24 08/16/24 08/16/24 Range/Units 11:14 16:36 16:50 POC Glucose (mg/dL) 241 H 419 H 353 H (70-110) mg/dL 08/16/24 08/17/24 08/17/24 Range/Units 20:03 06:09 16:46 POC Glucose (mg/dL) 149 H 206 H 217 H (70-110) mg/dL 08/17/24 08/18/24 08/18/24 Range/Units 19:58 05:56 11:29 POC Glucose (mg/dL) 267 H 242 H 463 H (70-110) mg/dL 08/18/24 Range/Units 11:30 POC Glucose (mg/dL) 478 H (70-110) mg/dL Assessment and Plan Assessment: 1. End-stage renal disease maintained on hemodialysis on Wednesday schedule with extra treatments on Mondays. 2. Volume overload. 3. Acute hypoxic respiratory failure, improved with improved volume status. 4. CKD mineral bone disroder 5. Hypertension, volume sensitive, improved with ultrafiltration and improvement in volume status. 6. History of diabetic gastroparesis Plan: Hemodialysis in a.m. Encourage increase oral intake Consider adding Reglan for gastroparesis if nausea has not improved.
[2024-08-18 16:12] LABS: Glucose,Whole Blood 302 mg/dL (70-110)
[2024-08-18 20:02] LABS: Glucose,Whole Blood 92 mg/dL (70-110)
--- NOTE | 2024-08-18 22:02 | P.PN ---
Subjective Progress Note Date: 08/18/24 Patient is a 34-year-old female with a past medical history of ESRD on hemodialysis TTS-currently awaiting renal and pancreas transplant, gastroparesis, diabetic neuropathy, hypothyroidism, diabetes type 2, hypertension, seizure disorder, anxiety/depression and prior history of smoking, marijuana and methamphetamine use. Patient presents to ER with complaints of worsening shortness of breath. Patient had dialysis 2 days ago on 08/12/2024. On admission patient found to be hypertensive emergency with volume overload. Patient was started on nitroglycerin drip and was transferred to MICU. Chest x-ray showed severe pulmonary edema EKG showed sinus tachycardia. Laboratory data showed WBC 18.5 hemoglobin 12.8 and platelets 443 sodium 135 potassium 5.5 chloride 94 bicarb is 23 BUN 53 and creatinine 6.78 blood sugar 247 and lactic acid 2.9 AST 46 ALT 23 and alk phos 165 and troponin 0.042 and proBNP 96,400 08/16/2024 Patient is the MICU. Awake alert and oriented x 3. Currently on 2 L via nasal cannula. Patient is undergoing hemodialysis again today. Patient is off nitro drip and Cleviprex drip. Blood pressure is fairly controlled. Continued on blood pressure medications. Laboratory data showed WBC 8.1 hemoglobin 14.0 platelets 532 sodium 133 potassium 5.3 chloride 93 bicarb is 25 BUN 21 and creatinine 4.86 and blood sugar 213 and calcium 10.3 Nephrology and pulmonary is on board. 08/17/2024 Patient is transferred to medical floor. Complains of migraine headache. No complaints of chest pain or shortness of breath. Patient underwent hemodialysis today. Tolerating well. Blood pressure is high this morning with SBP in 180s. Patient was given all her blood pressure medications requiring oxygen at 2 L via nasal cannula. Laboratory data showed WBC 7.8 hemoglobin 14.0 and platelets 470 sodium 133 potassium 4.9 chloride 93 bicarb is 25 BUN 24 and creatinine 5.19 and blood sugar 225 and calcium 9.8. 08/18/2024 Patient is lying in the bed. Awake alert and oriented x 3. On room air. Complains of headache and generalized body pains. Requesting more pain medications. Otherwise blood pressure is much improved today.. Next hemodialysis session will be tomorrow. Blood sugar went up to 478 before lunch. Continued on insulin sliding scale and is also on Levemir 12 units twice daily. Patient is being continued on Imdur, labetalol, Entresto and hydralazine as well as clonidine. Nephrology is on board. Current medications reviewed. Objective - Vital Signs Vital signs: Vital Signs Temp 98.5 F 08/18/24 08:50 Pulse 98 08/18/24 08:50 Resp 17 08/18/24 08:50 BP 168/99 08/18/24 08:50 Pulse Ox 99 08/18/24 08:50 FiO2 40 08/14/24 11:01 Intake & Output 08/17/24 08/18/24 08/18/24 18:59 06:59 18:59 Intake Total 3180 472 Output Total 2400 Balance 780 472 Weight 62 kg Intake: Oral 780 472 Hemodialysis 2400 Output: Hemodialysis 400 Hemodialysis Net Amount 1999 - Exam PHYSICAL EXAMINATION: Patient is lying in the bed comfortably, no acute distress, awake alert and oriented. Drowsy and lethargic.. HEENT: Normocephalic. Neck is supple. Pupils reactive. Nostrils clear. Oral cavity is moist. Neck reveals no JVD, carotid bruits, or thyromegaly. CHEST EXAMINATION: Trachea is central. Symmetrical expansion. Lung armendariz clear to auscultation and percussion. CARDIAC: Normal S1, S2 with no gallops. No murmurs ABDOMEN: Soft. Bowel sounds normal. No organomegaly. No abdominal bruits. Extremities: reveal no edema. No clubbing or cyanosis Neurologically awake, alert, oriented x 2-3 with well-coordinated movements. No focal deficits noted Skin: No rash or skin lesions. Psychiatric: Coperative. Nonsuicidal Musculoskeletal: No joint swelling or deformity. Normal range of motion. - Labs CBC & Chem 7: 08/17/24 06:28 08/17/24 06:28 Labs: Abnormal Lab Results - Last 24 Hours (Table) 08/16/24 08/16/24 08/16/24 Range/Units 16:36 16:50 20:03 POC Glucose (mg/dL) 419 H 353 H 149 H (70-110) mg/dL 08/17/24 08/17/24 08/17/24 Range/Units 06:09 14:18 16:46 POC Glucose (mg/dL) 206 H 214 H 217 H (70-110) mg/dL 08/17/24 08/18/24 Range/Units 19:58 05:56 POC Glucose (mg/dL) 267 H 242 H (70-110) mg/dL Assessment and Plan Assessment: Acute hypoxic respiratory failure secondary to pulmonary edema and volume overload requiring BiPAP on admission currently titrated down to room air. Hypertensive emergency requiring nitroglycerin drip. Currently off drip. ESRD requiring hemodialysis 4 times per week. elevated proBNP level Hyperkalemia improved. Leukocytosis likely reactive. Diabetes type 2 insulin-dependent Hypothyroidism Anemia of chronic disease History of CVA/TIA History of optic neuritis Anxiety/depression History of marijuana use and methamphetamine use Prior history of smoking DVT prophylaxis with heparin subcu Plan: Patient will be continued on oxygen supplementation. Nitro drip and Cleviprex drip has been discontinued.. Patient was transferred to medical floor.. Patient is scheduled for hemodialysis tomorrow.. Continue blood pressure medications and titrate doses. Follow-up CBC BMP and phosphorus level. Nephrology and critical care team is on board. Follow-up closely. Time with Patient: Greater than 30
[2024-08-18] MEDS: cloNIDine HCL 0.1 MG TAB PO SCH (23:34)
[2024-08-19 06:07] LABS: Glucose,Whole Blood 197 mg/dL (70-110)
[2024-08-19 06:54] LABS: Anisocytosis Slight; Basophils # (A) 0.1 k/uL (0-0.2); Basophils % (A) 0 %; Eosinophils # (A) 0.6 k/uL (0-0.7); Eosinophils % (A) 5 %; HGB 13.9 gm/dL (11.4-16.0); Hypochromasia Slight; Lymphocytes # (A) 1.3 k/uL (1.0-4.8); Lymphocytes % (A) 10 %; MCHC 31.6 g/dL (31.0-37.0); MCV 101.4 fL (80.0-100.0); Macrocytosis Moderate; Monocytes # (A) 0.9 k/uL (0-1.0); Monocytes % (A) 7 %; Neutrophils # (A) 10.8 k/uL (1.3-7.7); Neutrophils % (A) 77 %; Platelet Count 436 k/uL (150-450); RBC 4.34 m/uL (3.80-5.40); RDW 19.5 % (11.5-15.5)
[2024-08-19 07:35] LABS: African American GFR (CKD) 7 (>60 ml/min/1.73 sqM); Anion Gap 17 mmol/L; Blood Urea Nitrogen 43 mg/dL (7-17); Calcium 9.6 mg/dL (8.4-10.2); Carbon Dioxide 22 mmol/L (22-30); Chloride 94 mmol/L (98-107); Glucose 194 mg/dL (74-99); Non-African American GFR(CKD) 6 (>60 ml/min/1.73 sqM); Potassium 5.6 mmol/L (3.5-5.1); Sodium 133 mmol/L (137-145)
[2024-08-19 07:36] LABS: Phosphorus 9.1 mg/dL (2.5-4.5)
[2024-08-19] MEDS: ONDANSETRON 4 MG/2 ML VIAL IVP PRN (07:59)
[2024-08-19 11:21] LABS: Glucose,Whole Blood 105 mg/dL (70-110)
--- NOTE | 2024-08-19 11:35 | P.PN ---
Subjective patient is seen for follow-up for end-stage renal disease. patient is seen on hemodialysis. Goal UF will be increased to 4 L. Complaining of nausea. No complaints of shortness of breath. Objective - Vital Signs Vital signs: Vital Signs Temp 98 F 08/19/24 08:00 Pulse 99 08/19/24 08:00 Resp 17 08/19/24 08:00 BP 149/91 08/19/24 08:00 Pulse Ox 99 08/19/24 08:00 FiO2 40 08/14/24 11:01 Intake & Output 08/18/24 08/19/24 08/19/24 18:59 06:59 18:59 Intake Total 472 Balance 472 Weight 60 kg Intake: Oral 472 Other: # Voids 2 3 - Exam patient is awake, comfortable, no acute distress. 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 - Labs CBC & Chem 7: 08/19/24 06:05 08/19/24 06:05 Labs: Abnormal Lab Results - Last 24 Hours (Table) 08/14/24 08/14/24 08/14/24 Range/Units 16:07 16:46 20:10 WBC (3.8-10.6) k/uL MCV (80.0-100.0) fL RDW (11.5-15.5) % Neutrophils # (1.3-7.7) k/uL Sodium (137-145) mmol/L Potassium (3.5-5.1) mmol/L Chloride (98-107) mmol/L BUN (7-17) mg/dL Creatinine (0.52-1.04) mg/dL Glucose (74-99) mg/dL POC Glucose (mg/dL) 374 H 417 H 361 H (70-110) mg/dL Phosphorus (2.5-4.5) mg/dL 08/14/24 08/15/24 08/15/24 Range/Units 21:01 07:17 11:12 WBC (3.8-10.6) k/uL MCV (80.0-100.0) fL RDW (11.5-15.5) % Neutrophils # (1.3-7.7) k/uL Sodium (137-145) mmol/L Potassium (3.5-5.1) mmol/L Chloride (98-107) mmol/L BUN (7-17) mg/dL Creatinine (0.52-1.04) mg/dL Glucose (74-99) mg/dL POC Glucose (mg/dL) 380 H 166 H 146 H (70-110) mg/dL Phosphorus (2.5-4.5) mg/dL 08/15/24 08/15/24 08/16/24 Range/Units 16:35 20:16 06:27 WBC (3.8-10.6) k/uL MCV (80.0-100.0) fL RDW (11.5-15.5) % Neutrophils # (1.3-7.7) k/uL Sodium (137-145) mmol/L Potassium (3.5-5.1) mmol/L Chloride (98-107) mmol/L BUN (7-17) mg/dL Creatinine (0.52-1.04) mg/dL Glucose (74-99) mg/dL POC Glucose (mg/dL) 225 H 281 H 215 H (70-110) mg/dL Phosphorus (2.5-4.5) mg/dL 08/16/24 08/18/24 08/19/24 Range/Units 11:14 16:11 06:05 WBC 14.0 H (3.8-10.6) k/uL MCV 101.4 H (80.0-100.0) fL RDW 19.5 H (11.5-15.5) % Neutrophils # 10.8 H (1.3-7.7) k/uL Sodium (137-145) mmol/L Potassium (3.5-5.1) mmol/L Chloride (98-107) mmol/L BUN (7-17) mg/dL Creatinine (0.52-1.04) mg/dL Glucose (74-99) mg/dL POC Glucose (mg/dL) 241 H 302 H (70-110) mg/dL Phosphorus (2.5-4.5) mg/dL 08/19/24 08/19/24 Range/Units 06:05 06:06 WBC (3.8-10.6) k/uL MCV (80.0-100.0) fL RDW (11.5-15.5) % Neutrophils # (1.3-7.7) k/uL Sodium 133 L (137-145) mmol/L Potassium 5.6 H (3.5-5.1) mmol/L Chloride 94 L (98-107) mmol/L BUN 43 H (7-17) mg/dL Creatinine 7.50 H* (0.52-1.04) mg/dL Glucose 194 H (74-99) mg/dL POC Glucose (mg/dL) 197 H (70-110) mg/dL Phosphorus 9.1 H* (2.5-4.5) mg/dL Assessment and Plan Assessment: 1. End-stage renal disease maintained on hemodialysis on Wednesday schedule with extra treatments on Mondays. 2. Volume overload. improved. 3. Acute hypoxic respiratory failure, improved with improved volume status. 4. CKD mineral bone disroder 5. Hypertension, volume sensitive, improved with ultrafiltration and improvement in volume status. 6. History of diabetic gastroparesis Plan: Hemodialysis today with goal UF on 4 L Encourage increase oral intake Consider adding Reglan for gastroparesis if nausea has not improved.
[2024-08-19] MEDS: CALCIUM ACETATE 667 MG TAB PO SCH (11:55)
--- NOTE | 2024-08-19 13:10 | P.PN ---
Subjective Progress Note Date: 08/19/24 Principal diagnosis: Acute hypertensive emergency with acute pulmonary edema This is a 34-year-old female patient with a known history of uncontrolled hypertension, end-stage renal disease requiring hemodialysis 4 times weekly, diabetes mellitus, TIA/CVA, optic neuritis, anemia of chronic disease. She has had multiple admissions for fluid volume overload and hypertensive emergency. She presented here again early this morning with worsening shortness of breath. She states she had dialysis 2 days ago on 08/12/2024. Chest x-ray revealed severe pulmonary edema. She was placed on BiPAP 10/5 and 40% FiO2. She was extremely hypertensive and requiring a nitroglycerin drip currently at 130 mcg/min. White count 18.5. Hemoglobin 12.8. Platelets 443. Sodium 135. Potassium 5.5. Bicarb 23. BUN 53. Creatinine 6.78. Glucose 247. proBNP 96,400. She is seen currently in the emergency department. She remains on BiPAP. She is receiving hemodialysis with a goal of 4 L to be removed today. Patient today on 08/15/2024, she is now in the ICU, undergoing hemodialysis, patient is feeling better. Breathing easier, last night she had to go on BiPAP 10/5/40%, now she is on 2 L nasal cannula, chest x-ray showed dramatic improvement in her pulmonary edema. Remains on Cleviprex at 9 mg/h, patient is on multiple cardiac meds for hypertension, and her blood pressure seems to be quite better controlled at this point. But the plan is to continue tapering the Cleviprex, and once discontinued the patient could be transferred out of the ICU to the cardiac floor. Labs reviewed WBC count is 12.2 hemoglobin is 13.3 basic metabolic profile is normal renal profile showed a BUN of 33 creatinine 5.67 Patient was evaluated today on 08/16/2024, remains in the ICU, remains on hemodialysis, blood pressure seems to be better controlled, patient is maximized on multiple blood pressure medications. Hence considering the patient is off Cleviprex, and she is off nitroglycerin, I will arrange for the patient to transfer sometime later today to a monitored bed on 3 S. In the meantime we will continue blood pressure medications for adequate control of the blood pressure, and continue hemodialysis. WBC count is 8.1 hemoglobin is 14 basic metabolic profile is normal BUN is 21 creatinine 4.86. Bicarb is 25 Patient was evaluated today on 08/17/2024, patient is doing well, on hemodialysis, seems very comfortable, not in any distress, but she intermittently moans and groans. Does not seem to be quite pleased with her overall condition. During my evaluation the patient was having hemodialysis, and did not seem to be in any distress.WBC of 7.8 hemoglobin 14 electrolytes are normal BUN is 24 creatinine 5.19 Reevaluate today on 08/18/2024, patient is doing great, hardly any pulmonary symptoms, however the patient remains extremely quiet, and she has a very dull affect. Very depressed mood.On room air, O2 sats is 100% blood pressure is normal 142/82, patient remains on intermittent hemodialysis. Patient was seen today on 08/19/2024, patient is receiving hemodialysis during my evaluation, her follow-up chest x-ray yesterday showed complete resolution of her pulmonary edema, patient is doing well from the pulmonary perspective hardly any pulmonary symptoms no cough no wheezing no shortness of breath. Patient remains on 2 L nasal cannula but her O2 saturation 100% Objective - Vital Signs Vital signs: Vital Signs Temp 98 F 08/19/24 08:00 Pulse 102 H 08/19/24 12:00 Resp 19 08/19/24 12:00 BP 145/90 08/19/24 12:00 Pulse Ox 100 08/19/24 12:00 FiO2 40 08/14/24 11:01 Intake & Output 08/18/24 08/19/24 08/19/24 18:59 06:59 18:59 Intake Total 472 Balance 472 Weight 60 kg Intake: Oral 472 Other: # Voids 2 3 - Exam GENERAL EXAM: Alert, 34-year-old female, on 2 L nasal cannula with O2 sat of 100% HEAD: Normocephalic. EYES: Normal reaction of pupils, equal size. NOSE: Clear with pink turbinates. THROAT: No erythema or exudates. NECK: No masses, no JVD. CHEST: No chest wall deformity. Right sided hemodialysis catheter in place LUNGS: Clear bilaterally no crackles rhonchi or wheezes CVS: S1 and S2 normal with no audible murmur, regular rhythm. ABDOMEN: No hepatosplenomegaly, normal bowel sounds, no guarding or rigidity. SKIN: No rashes CENTRAL NERVOUS SYSTEM: alert and oriented x 3 no focal deficit Psychiatric: Depressed mood, blunted affect, otherwise normal mental status examination EXTREMITIES: No clubbing edema or cyanosis - Labs CBC & Chem 7: 08/19/24 06:05 08/19/24 06:05 Labs: Abnormal Lab Results - Last 24 Hours (Table) 08/18/24 08/19/24 08/19/24 Range/Units 16:11 06:05 06:05 WBC 14.0 H (3.8-10.6) k/uL MCV 101.4 H (80.0-100.0) fL RDW 19.5 H (11.5-15.5) % Neutrophils # 10.8 H (1.3-7.7) k/uL Sodium 133 L (137-145) mmol/L Potassium 5.6 H (3.5-5.1) mmol/L Chloride 94 L (98-107) mmol/L BUN 43 H (7-17) mg/dL Creatinine 7.50 H* (0.52-1.04) mg/dL Glucose 194 H (74-99) mg/dL POC Glucose (mg/dL) 302 H (70-110) mg/dL Phosphorus 9.1 H* (2.5-4.5) mg/dL 08/19/24 Range/Units 06:06 WBC (3.8-10.6) k/uL MCV (80.0-100.0) fL RDW (11.5-15.5) % Neutrophils # (1.3-7.7) k/uL Sodium (137-145) mmol/L Potassium (3.5-5.1) mmol/L Chloride (98-107) mmol/L BUN (7-17) mg/dL Creatinine (0.52-1.04) mg/dL Glucose (74-99) mg/dL POC Glucose (mg/dL) 197 H (70-110) mg/dL Phosphorus (2.5-4.5) mg/dL Assessment and Plan Assessment: Impression: Acute hypoxemic respiratory failure secondary to an acute episode of pulmonary edema and fluid volume overload Hypertensive emergency, improving it was associated with pulmonary edema End-stage renal disease requiring hemodialysis 4 times per week Hyperkalemia secondary to above Diabetes mellitus, insulin-dependent Anemia of chronic disease History of CVA/TIA History of optic neuritis Hypothyroidism History of depression Recommendation: Continue present supportive care measures Will clear the patient for discharge when she is cleared by other consultants. Continue hemodialysis Chest x-ray yesterday was reassuring Time with Patient: Less than 30
--- NOTE | 2024-08-19 14:03 | P.PN ---
Subjective Progress Note Date: 08/19/24 Patient is a 34-year-old female with a past medical history of ESRD on hemodialysis TTS-currently awaiting renal and pancreas transplant, gastroparesis, diabetic neuropathy, hypothyroidism, diabetes type 2, hypertension, seizure disorder, anxiety/depression and prior history of smoking, marijuana and methamphetamine use. Patient presents to ER with complaints of worsening shortness of breath. Patient had dialysis 2 days ago on 08/12/2024. On admission patient found to be hypertensive emergency with volume overload. Patient was started on nitroglycerin drip and was transferred to MICU. Chest x-ray showed severe pulmonary edema EKG showed sinus tachycardia. Laboratory data showed WBC 18.5 hemoglobin 12.8 and platelets 443 sodium 135 potassium 5.5 chloride 94 bicarb is 23 BUN 53 and creatinine 6.78 blood sugar 247 and lactic acid 2.9 AST 46 ALT 23 and alk phos 165 and troponin 0.042 and proBNP 96,400 08/16/2024 Patient is the MICU. Awake alert and oriented x 3. Currently on 2 L via nasal cannula. Patient is undergoing hemodialysis again today. Patient is off nitro drip and Cleviprex drip. Blood pressure is fairly controlled. Continued on blood pressure medications. Laboratory data showed WBC 8.1 hemoglobin 14.0 platelets 532 sodium 133 potassium 5.3 chloride 93 bicarb is 25 BUN 21 and creatinine 4.86 and blood sugar 213 and calcium 10.3 Nephrology and pulmonary is on board. 08/17/2024 Patient is transferred to medical floor. Complains of migraine headache. No complaints of chest pain or shortness of breath. Patient underwent hemodialysis today. Tolerating well. Blood pressure is high this morning with SBP in 180s. Patient was given all her blood pressure medications requiring oxygen at 2 L via nasal cannula. Laboratory data showed WBC 7.8 hemoglobin 14.0 and platelets 470 sodium 133 potassium 4.9 chloride 93 bicarb is 25 BUN 24 and creatinine 5.19 and blood sugar 225 and calcium 9.8. 08/18/2024 Patient is lying in the bed. Awake alert and oriented x 3. On room air. Complains of headache and generalized body pains. Requesting more pain medications. Otherwise blood pressure is much improved today.. Next hemodialysis session will be tomorrow. Blood sugar went up to 478 before lunch. Continued on insulin sliding scale and is also on Levemir 12 units twice daily. Patient is being continued on Imdur, labetalol, Entresto and hydralazine as well as clonidine. Nephrology is on board. 08/19. Patient seen and examined. Blood work done this morning showed WBC 14, hemoglobin 13.9, sodium 133, potassium 5.6, BUN 43, creatinine 7.5, phosphorus 9.1. Patient is undergoing dialysis today. REVIEW OF SYSTEMS: CONSTITUTIONAL: No fever, no malaise,. CARDIOVASCULAR: No chest pain, no palpitations, no syncope. PULMONARY: No shortness of breath, no cough, GASTROINTESTINAL: No diarrhea, no nausea, no vomiting, no abdominal pain. NEUROLOGICAL: No headaches, no weakness, PHYSICAL EXAMINATION: GENERAL: The patient is alert and oriented x3, chronically ill looking HEENT: Pupils are round and equally reacting to light. EOMI. No scleral icterus. No conjunctival pallor. Normocephalic, atraumatic. No pharyngeal erythema. No thyromegaly. CARDIOVASCULAR: S1 and S2 present. No murmurs, rubs, or gallops. PULMONARY: Chest is clear to auscultation, no wheezing or crackles. ABDOMEN: Soft, nontender, nondistended, normoactive bowel sounds. No palpable organomegaly. MUSCULOSKELETAL: No joint swelling or deformity. EXTREMITIES: No cyanosis, clubbing, or pedal edema. NEUROLOGICAL: Gross neurological examination did not reveal any focal deficits. SKIN: No rashes. Assessment and plan Acute hypoxic respiratory failure secondary to pulmonary edema and volume overload requiring BiPAP on admission currently titrated down to room air. Hypertensive emergency requiring nitroglycerin drip. Currently off drip. ESRD requiring hemodialysis 4 times per week. elevated proBNP level Hyperkalemia improved. Leukocytosis likely reactive. Diabetes type 2 insulin-dependent Hypothyroidism Anemia of chronic disease History of CVA/TIA History of optic neuritis Anxiety/depression History of marijuana use and methamphetamine use Prior history of smoking Monitor vital signs Monitor CBC Monitor CMP Continue aspirin, Lipitor Continue Norvasc, clonidine, hydralazine, labetalol Continue Synthroid Monitor blood sugar levels, continue current insulin regimen Continue dialysis per nephrology ICU following Labs and medication were reviewed.. Continue same treatment. Continue with symptomatic treatment. Resume home medication. Monitor labs and vitals. DVT and GI prophylaxis. Further recommendations as per clinical course of the patient Dictation was produced using dragon dictation software. please excuse any grammatical, word or spelling errors. Objective - Vital Signs Vital signs: Vital Signs Temp 98 F 08/19/24 08:00 Pulse 99 08/19/24 08:00 Resp 17 08/19/24 08:00 BP 149/91 08/19/24 08:00 Pulse Ox 99 08/19/24 08:00 FiO2 40 08/14/24 11:01 Intake & Output 08/18/24 08/19/24 08/19/24 18:59 06:59 18:59 Intake Total 472 Balance 472 Weight 60 kg Intake: Oral 472 Other: # Voids 2 3 - Labs CBC & Chem 7: 08/19/24 06:05 08/19/24 06:05 Labs: Abnormal Lab Results - Last 24 Hours (Table) 08/14/24 08/14/24 08/14/24 Range/Units 16:07 16:46 20:10 WBC (3.8-10.6) k/uL MCV (80.0-100.0) fL RDW (11.5-15.5) % Neutrophils # (1.3-7.7) k/uL Sodium (137-145) mmol/L Potassium (3.5-5.1) mmol/L Chloride (98-107) mmol/L BUN (7-17) mg/dL Creatinine (0.52-1.04) mg/dL Glucose (74-99) mg/dL POC Glucose (mg/dL) 374 H 417 H 361 H (70-110) mg/dL Phosphorus (2.5-4.5) mg/dL 08/14/24 08/15/24 08/15/24 Range/Units 21:01 07:17 11:12 WBC (3.8-10.6) k/uL MCV (80.0-100.0) fL RDW (11.5-15.5) % Neutrophils # (1.3-7.7) k/uL Sodium (137-145) mmol/L Potassium (3.5-5.1) mmol/L Chloride (98-107) mmol/L BUN (7-17) mg/dL Creatinine (0.52-1.04) mg/dL Glucose (74-99) mg/dL POC Glucose (mg/dL) 380 H 166 H 146 H (70-110) mg/dL Phosphorus (2.5-4.5) mg/dL 08/15/24 08/15/24 08/16/24 Range/Units 16:35 20:16 06:27 WBC (3.8-10.6) k/uL MCV (80.0-100.0) fL RDW (11.5-15.5) % Neutrophils # (1.3-7.7) k/uL Sodium (137-145) mmol/L Potassium (3.5-5.1) mmol/L Chloride (98-107) mmol/L BUN (7-17) mg/dL Creatinine (0.52-1.04) mg/dL Glucose (74-99) mg/dL POC Glucose (mg/dL) 225 H 281 H 215 H (70-110) mg/dL Phosphorus (2.5-4.5) mg/dL 08/16/24 08/18/24 08/18/24 Range/Units 11:14 11:29 11:30 WBC (3.8-10.6) k/uL MCV (80.0-100.0) fL RDW (11.5-15.5) % Neutrophils # (1.3-7.7) k/uL Sodium (137-145) mmol/L Potassium (3.5-5.1) mmol/L Chloride (98-107) mmol/L BUN (7-17) mg/dL Creatinine (0.52-1.04) mg/dL Glucose (74-99) mg/dL POC Glucose (mg/dL) 241 H 463 H 478 H (70-110) mg/dL Phosphorus (2.5-4.5) mg/dL 08/18/24 08/19/24 08/19/24 Range/Units 16:11 06:05 06:05 WBC 14.0 H (3.8-10.6) k/uL MCV 101.4 H (80.0-100.0) fL RDW 19.5 H (11.5-15.5) % Neutrophils # 10.8 H (1.3-7.7) k/uL Sodium 133 L (137-145) mmol/L Potassium 5.6 H (3.5-5.1) mmol/L Chloride 94 L (98-107) mmol/L BUN 43 H (7-17) mg/dL Creatinine 7.50 H* (0.52-1.04) mg/dL Glucose 194 H (74-99) mg/dL POC Glucose (mg/dL) 302 H (70-110) mg/dL Phosphorus 9.1 H* (2.5-4.5) mg/dL 08/19/24 Range/Units 06:06 WBC (3.8-10.6) k/uL MCV (80.0-100.0) fL RDW (11.5-15.5) % Neutrophils # (1.3-7.7) k/uL Sodium (137-145) mmol/L Potassium (3.5-5.1) mmol/L Chloride (98-107) mmol/L BUN (7-17) mg/dL Creatinine (0.52-1.04) mg/dL Glucose (74-99) mg/dL POC Glucose (mg/dL) 197 H (70-110) mg/dL Phosphorus (2.5-4.5) mg/dL
[2024-08-19 16:16] LABS: Glucose,Whole Blood 358 mg/dL (70-110)
[2024-08-19 20:12] LABS: Glucose,Whole Blood 185 mg/dL (70-110)
[2024-08-20 05:59] LABS: Glucose,Whole Blood 110 mg/dL (70-110)
--- NOTE | 2024-08-20 10:52 | P.PN ---
Subjective patient is seen for follow-up for end-stage renal disease. status post 3 L of UF with dialysis yesterday. Patient is complaining off pain in the left front tooth. She feels there was pus draining from it yesterday. No complaints of fever or chills. Objective - Vital Signs Vital signs: Vital Signs Temp 98 F 08/20/24 09:00 Pulse 103 H 08/20/24 09:00 Resp 18 08/20/24 09:00 BP 165/100 08/20/24 09:00 Pulse Ox 99 08/20/24 09:00 FiO2 40 08/14/24 11:01 Intake & Output 08/19/24 08/20/24 08/20/24 18:59 06:59 18:59 Intake Total 860 200 540 Output Total 6500 Balance -5640 200 540 Weight 60.8 kg Intake: Oral 360 200 540 Hemodialysis 500 Output: Hemodialysis 3500 Hemodialysis Net Amount 3000 Other: # Voids 1 1 - Exam patient is awake, comfortable, no acute distress. Examination of the heart S1 and S2 Examination of the lungs shows bilateral breath sounds are heard Abdomen is soft nontender Examination of lower extremities shows no significant edema [employer] exam grossly intact - Labs CBC & Chem 7: 08/19/24 06:05 08/19/24 06:05 Labs: Abnormal Lab Results - Last 24 Hours (Table) 08/19/24 08/19/24 Range/Units 16:14 20:11 POC Glucose (mg/dL) 358 H 185 H (70-110) mg/dL Assessment and Plan Assessment: 1. End-stage renal disease maintained on hemodialysis on Wednesday schedule with extra treatments on Mondays. 2. Volume overload. improved. 3. Acute hypoxic respiratory failure, improved with improved volume status. 4. CKD mineral bone disroder 5. Hypertension, volume sensitive, improved with ultrafiltration and improvement in volume status. 6. History of diabetic gastroparesis 7. Possible tooth abscess Plan: Hemodialysis in a.m. Add IV antibiotics Encourage increase oral intake Consider adding Reglan for gastroparesis if nausea has not improved.
[2024-08-20 11:23] LABS: Glucose,Whole Blood 291 mg/dL (70-110)
[2024-08-20] MEDS ORDERED: METOCLOPRAMIDE 5 MG/ML 2 ML VIAL IVP PRN (14:06)
--- NOTE | 2024-08-20 14:08 | P.PN ---
Subjective Progress Note Date: 08/20/24 Patient is a 34-year-old female with a past medical history of ESRD on hemodialysis TTS-currently awaiting renal and pancreas transplant, gastroparesis, diabetic neuropathy, hypothyroidism, diabetes type 2, hypertension, seizure disorder, anxiety/depression and prior history of smoking, marijuana and methamphetamine use. Patient presents to ER with complaints of worsening shortness of breath. Patient had dialysis 2 days ago on 08/12/2024. On admission patient found to be hypertensive emergency with volume overload. Patient was started on nitroglycerin drip and was transferred to MICU. Chest x-ray showed severe pulmonary edema EKG showed sinus tachycardia. Laboratory data showed WBC 18.5 hemoglobin 12.8 and platelets 443 sodium 135 potassium 5.5 chloride 94 bicarb is 23 BUN 53 and creatinine 6.78 blood sugar 247 and lactic acid 2.9 AST 46 ALT 23 and alk phos 165 and troponin 0.042 and proBNP 96,400 08/16/2024 Patient is the MICU. Awake alert and oriented x 3. Currently on 2 L via nasal cannula. Patient is undergoing hemodialysis again today. Patient is off nitro drip and Cleviprex drip. Blood pressure is fairly controlled. Continued on blood pressure medications. Laboratory data showed WBC 8.1 hemoglobin 14.0 platelets 532 sodium 133 potassium 5.3 chloride 93 bicarb is 25 BUN 21 and creatinine 4.86 and blood sugar 213 and calcium 10.3 Nephrology and pulmonary is on board. 08/17/2024 Patient is transferred to medical floor. Complains of migraine headache. No complaints of chest pain or shortness of breath. Patient underwent hemodialysis today. Tolerating well. Blood pressure is high this morning with SBP in 180s. Patient was given all her blood pressure medications requiring oxygen at 2 L via nasal cannula. Laboratory data showed WBC 7.8 hemoglobin 14.0 and platelets 470 sodium 133 potassium 4.9 chloride 93 bicarb is 25 BUN 24 and creatinine 5.19 and blood sugar 225 and calcium 9.8. 08/18/2024 Patient is lying in the bed. Awake alert and oriented x 3. On room air. Complains of headache and generalized body pains. Requesting more pain medications. Otherwise blood pressure is much improved today.. Next hemodialysis session will be tomorrow. Blood sugar went up to 478 before lunch. Continued on insulin sliding scale and is also on Levemir 12 units twice daily. Patient is being continued on Imdur, labetalol, Entresto and hydralazine as well as clonidine. Nephrology is on board. 08/19. Patient seen and examined. B. Vitals this morning temperature 98, heart rate 103, lood work done this morning showed WBC 14, hemoglobin 13.9, sodium 133, potassium 5.6, BUN 43, creatinine 7.5, phosphorus 9.1. Patient is undergoing dialysis today. 08/20. Patient seen and examined. Vital signs this morning temperature 98, heart rate 103, respiration 18 blood pressure 165/100. Complaining of pain in her gums with pussy discharge. Complaining of nausea and vomiting as well REVIEW OF SYSTEMS: CONSTITUTIONAL: No fever, no malaise,. CARDIOVASCULAR: No chest pain, no palpitations, no syncope. PULMONARY: No shortness of breath, no cough, GASTROINTESTINAL: No diarrhea, no abdominal pain. NEUROLOGICAL: No headaches, no weakness, PHYSICAL EXAMINATION: GENERAL: The patient is alert and oriented x3, chronically ill looking HEENT: Pupils are round and equally reacting to light. EOMI. No scleral icterus. No conjunctival pallor. Normocephalic, atraumatic. No pharyngeal erythema. No thyromegaly. CARDIOVASCULAR: S1 and S2 present. No murmurs, rubs, or gallops. PULMONARY: Chest is clear to auscultation, no wheezing or crackles. ABDOMEN: Soft, nontender, nondistended, normoactive bowel sounds. No palpable organomegaly. MUSCULOSKELETAL: No joint swelling or deformity. EXTREMITIES: No cyanosis, clubbing, or pedal edema. NEUROLOGICAL: Gross neurological examination did not reveal any focal deficits. SKIN: No rashes. Assessment and plan Acute hypoxic respiratory failure secondary to pulmonary edema and volume overload requiring BiPAP on admission currently titrated down to room air. Hypertensive emergency requiring nitroglycerin drip. Currently off drip. ESRD requiring hemodialysis 4 times per week. Gingivitis Oral tooth infection elevated proBNP level Hyperkalemia improved. Leukocytosis likely reactive. Diabetes type 2 insulin-dependent Hypothyroidism Anemia of chronic disease History of CVA/TIA History of optic neuritis Anxiety/depression History of marijuana use and methamphetamine use Prior history of smoking Monitor vital signs Monitor CBC Monitor CMP Continue aspirin, Lipitor Continue Norvasc, clonidine, hydralazine, labetalol Continue Synthroid Started Augmentin Started Reglan Monitor blood sugar levels, continue current insulin regimen Continue dialysis per nephrology ICU following Labs and medication were reviewed.. Continue same treatment. Continue with symptomatic treatment. Resume home medication. Monitor labs and vitals. DVT and GI prophylaxis. Further recommendations as per clinical course of the patient Dictation was produced using [email or web address] dictation software. please excuse any grammatical, word or spelling errors. Objective - Vital Signs Vital signs: Vital Signs Temp 98 F 08/20/24 09:00 Pulse 103 H 08/20/24 09:00 Resp 18 08/20/24 09:00 BP 165/100 08/20/24 09:00 Pulse Ox 99 08/20/24 09:00 FiO2 40 08/14/24 11:01 Intake & Output 08/19/24 08/20/24 08/20/24 18:59 06:59 18:59 Intake Total 860 200 540 Output Total 6500 Balance -5640 200 540 Weight 60.8 kg Intake: Oral 360 200 540 Hemodialysis 500 Output: Hemodialysis 3500 Hemodialysis Net Amount 3000 Other: # Voids 1 1 - Labs CBC & Chem 7: 08/19/24 06:05 08/19/24 06:05 Labs: Abnormal Lab Results - Last 24 Hours (Table) 08/19/24 08/19/24 Range/Units 16:14 20:11 POC Glucose (mg/dL) 358 H 185 H (70-110) mg/dL
--- NOTE | 2024-08-20 14:12 | P.PN ---
Subjective Progress Note Date: 08/20/24 Principal diagnosis: Acute hypertensive emergency with acute pulmonary edema This is a 34-year-old female patient with a known history of uncontrolled hypertension, end-stage renal disease requiring hemodialysis 4 times weekly, diabetes mellitus, TIA/CVA, optic neuritis, anemia of chronic disease. She has had multiple admissions for fluid volume overload and hypertensive emergency. She presented here again early this morning with worsening shortness of breath. She states she had dialysis 2 days ago on 08/12/2024. Chest x-ray revealed severe pulmonary edema. She was placed on BiPAP 10/5 and 40% FiO2. She was extremely hypertensive and requiring a nitroglycerin drip currently at 130 mcg/min. White count 18.5. Hemoglobin 12.8. Platelets 443. Sodium 135. Potassium 5.5. Bicarb 23. BUN 53. Creatinine 6.78. Glucose 247. proBNP 96,400. She is seen currently in the emergency department. She remains on BiPAP. She is receiving hemodialysis with a goal of 4 L to be removed today. Patient today on 08/15/2024, she is now in the ICU, undergoing hemodialysis, patient is feeling better. Breathing easier, last night she had to go on BiPAP 10/5/40%, now she is on 2 L nasal cannula, chest x-ray showed dramatic improvement in her pulmonary edema. Remains on Cleviprex at 9 mg/h, patient is on multiple cardiac meds for hypertension, and her blood pressure seems to be quite better controlled at this point. But the plan is to continue tapering the Cleviprex, and once discontinued the patient could be transferred out of the ICU to the cardiac floor. Labs reviewed WBC count is 12.2 hemoglobin is 13.3 basic metabolic profile is normal renal profile showed a BUN of 33 creatinine 5.67 Patient was evaluated today on 08/16/2024, remains in the ICU, remains on hemodialysis, blood pressure seems to be better controlled, patient is maximized on multiple blood pressure medications. Hence considering the patient is off Cleviprex, and she is off nitroglycerin, I will arrange for the patient to transfer sometime later today to a monitored bed on 3 S. In the meantime we will continue blood pressure medications for adequate control of the blood pressure, and continue hemodialysis. WBC count is 8.1 hemoglobin is 14 basic metabolic profile is normal BUN is 21 creatinine 4.86. Bicarb is 25 Patient was evaluated today on 08/17/2024, patient is doing well, on hemodialysis, seems very comfortable, not in any distress, but she intermittently moans and groans. Does not seem to be quite pleased with her overall condition. During my evaluation the patient was having hemodialysis, and did not seem to be in any distress.WBC of 7.8 hemoglobin 14 electrolytes are normal BUN is 24 creatinine 5.19 Reevaluate today on 08/18/2024, patient is doing great, hardly any pulmonary symptoms, however the patient remains extremely quiet, and she has a very dull affect. Very depressed mood.On room air, O2 sats is 100% blood pressure is normal 142/82, patient remains on intermittent hemodialysis. Patient was seen today on 08/19/2024, patient is receiving hemodialysis during my evaluation, her follow-up chest x-ray yesterday showed complete resolution of her pulmonary edema, patient is doing well from the pulmonary perspective hardly any pulmonary symptoms no cough no wheezing no shortness of breath. Patient remains on 2 L nasal cannula but her O2 saturation 100% Seen today on 08/20/2024, patient is doing great, no active pulmonary symptoms, no cough no wheezing no shortness of breath, patient is still receiving hemodialysis pulmonary freed no cough no wheezing no shortness of breath last follow-up chest x-ray showed complete resolution of her fluid overload/pulmonary edema. Objective - Vital Signs Vital signs: Vital Signs Temp 98 F 08/20/24 09:00 Pulse 100 08/20/24 11:30 Resp 17 08/20/24 11:30 BP 134/80 08/20/24 11:30 Pulse Ox 99 08/20/24 11:30 FiO2 40 08/14/24 11:01 Intake & Output 08/19/24 08/20/24 08/20/24 18:59 06:59 18:59 Intake Total 860 200 540 Output Total 6500 Balance -5640 200 540 Weight 60.8 kg Intake: Oral 360 200 540 Hemodialysis 500 Output: Hemodialysis 3500 Hemodialysis Net Amount 3000 Other: # Voids 1 1 - Exam GENERAL EXAM: Alert, 34-year-old female, on 2 L nasal cannula with O2 sat 99% HEAD: Normocephalic. EYES: Normal reaction of pupils, equal size. NOSE: Clear with pink turbinates. THROAT: No erythema or exudates. NECK: No masses, no JVD. CHEST: No chest wall deformity. Right sided hemodialysis catheter in place LUNGS: Clear bilaterally no crackles rhonchi or wheezes CVS: S1 and S2 normal with no audible murmur, regular rhythm. ABDOMEN: No hepatosplenomegaly, normal bowel sounds, no guarding or rigidity. SKIN: No rashes CENTRAL NERVOUS SYSTEM: alert and oriented x 3 no focal deficit Psychiatric: Depressed mood, blunted affect, otherwise normal mental status examination EXTREMITIES: No clubbing edema or cyanosis - Labs CBC & Chem 7: 08/19/24 06:05 08/19/24 06:05 Labs: Abnormal Lab Results - Last 24 Hours (Table) 08/19/24 08/19/24 08/20/24 Range/Units 16:14 20:11 11:22 POC Glucose (mg/dL) 358 H 185 H 291 H (70-110) mg/dL Assessment and Plan Assessment: Impression: Acute hypoxemic respiratory failure secondary to an acute episode of pulmonary edema and fluid volume overload Hypertensive emergency, improving it was associated with pulmonary edema End-stage renal disease requiring hemodialysis 4 times per week Hyperkalemia secondary to above Diabetes mellitus, insulin-dependent Anemia of chronic disease History of CVA/TIA History of optic neuritis Hypothyroidism History of depression Recommendation: Continue present supportive care measures Cleared for discharge, once she is cleared by nephrology Continue hemodialysis Will follow as needed Time with Patient: Less than 30
[2024-08-20] MEDS: AMOXIC-POT CLAV 875-125MG 1 EACH TAB PO SCH (15:03)
[2024-08-20 16:28] LABS: Glucose,Whole Blood 220 mg/dL (70-110)
[2024-08-20 20:53] LABS: Glucose,Whole Blood 176 mg/dL (70-110)
[2024-08-21 06:25] LABS: Glucose,Whole Blood 78 mg/dL (70-110)
[2024-08-21 06:49] LABS: Anisocytosis Slight; Basophils # (A) 0.1 k/uL (0-0.2); Basophils % (A) 1 %; Eosinophils # (A) 0.5 k/uL (0-0.7); Eosinophils % (A) 7 %; HCT 42.9 % (34.0-46.0); HGB 13.1 gm/dL (11.4-16.0); Hypochromasia Moderate; Lymphocytes # (A) 1.2 k/uL (1.0-4.8); Lymphocytes % (A) 17 %; MCH 31.3 pg (25.0-35.0); MCHC 30.6 g/dL (31.0-37.0); MCV 102.5 fL (80.0-100.0); Macrocytosis Moderate; Mean Platelet Volume 7.3; Monocytes # (A) 0.9 k/uL (0-1.0); Monocytes % (A) 12 %; Neutrophils # (A) 4.3 k/uL (1.3-7.7); Neutrophils % (A) 60 %; Platelet Count 326 k/uL (150-450); RBC 4.19 m/uL (3.80-5.40); RDW 18.2 % (11.5-15.5); WBC 7.3 k/uL (3.8-10.6)
[2024-08-21 07:01] LABS: ALT 12 U/L (4-34); AST 17 U/L (14-36); African American GFR (CKD) 7 (>60 ml/min/1.73 sqM); Albumin 4.2 g/dL (3.5-5.0); Alkaline Phosphatase 77 U/L (38-126); Anion Gap 14 mmol/L; Blood Urea Nitrogen 43 mg/dL (7-17); Calcium 9.3 mg/dL (8.4-10.2); Carbon Dioxide 25 mmol/L (22-30); Chloride 93 mmol/L (98-107); Glucose 65 mg/dL (74-99); Non-African American GFR(CKD) 6 (>60 ml/min/1.73 sqM); Potassium 5.6 mmol/L (3.5-5.1); Sodium 132 mmol/L (137-145); Total Bilirubin 0.5 mg/dL (0.2-1.3); Total Protein 6.5 g/dL (6.3-8.2)
--- NOTE | 2024-08-21 09:13 | P.PN ---
Subjective Patient is seen in follow-up for end-stage renal disease. She is maintained on hemodialysis Saturdays. Oral intake poor. Vital signs are stable. General: No acute distress. HEENT: Head exam is unremarkable. LUNGS: No audible rhonchi or wheezes. HEART: Rate and Rhythm are regular. ABDOMEN: Nontender. EXTREMITITES: No edema. Objective - Vital Signs Vital signs: Vital Signs Temp 98.2 F 08/21/24 08:24 Pulse 89 08/21/24 08:24 Resp 18 08/21/24 08:24 BP 164/90 08/21/24 08:24 Pulse Ox 99 08/21/24 08:24 FiO2 40 08/14/24 11:01 Intake & Output 08/20/24 08/21/24 08/21/24 18:59 06:59 18:59 Intake Total 1500 600 240 Balance 1500 600 240 Weight 61.3 kg Intake: Oral 1500 600 240 Other: # Voids 1 - Labs CBC & Chem 7: 08/21/24 05:49 08/21/24 05:49 Labs: Abnormal Lab Results - Last 24 Hours (Table) 08/20/24 08/20/24 08/20/24 Range/Units 11:22 16:22 20:52 MCV (80.0-100.0) fL MCHC (31.0-37.0) g/dL RDW (11.5-15.5) % Sodium (137-145) mmol/L Potassium (3.5-5.1) mmol/L Chloride (98-107) mmol/L BUN (7-17) mg/dL Creatinine (0.52-1.04) mg/dL Glucose (74-99) mg/dL POC Glucose (mg/dL) 291 H 220 H 176 H (70-110) mg/dL 08/21/24 08/21/24 Range/Units 05:49 05:49 MCV 102.5 H (80.0-100.0) fL MCHC 30.6 L (31.0-37.0) g/dL RDW 18.2 H (11.5-15.5) % Sodium 132 L (137-145) mmol/L Potassium 5.6 H (3.5-5.1) mmol/L Chloride 93 L (98-107) mmol/L BUN 43 H (7-17) mg/dL Creatinine 7.79 H* (0.52-1.04) mg/dL Glucose 65 L (74-99) mg/dL POC Glucose (mg/dL) (70-110) mg/dL Assessment and Plan Plan: Assessment: 1. End-stage renal disease maintained on hemodialysis on Saturdays. 2. Hypertension with chronic kidney disease. 3. Acute hypoxic respiratory failure secondary to volume overload. Improved. 4. Diabetes mellitus with gastroparesis. 5. Dental abscess maintained on antibiotics. 6. Chronic kidney disease mineral bone disease maintained on phosphate binders. 7. Mild hyperkalemia secondary to chronic kidney disease and Entresto. Plan: Hemodialysis today and again tomorrow per her outpatient schedule. Renal diet.
[2024-08-21 11:22] LABS: Glucose,Whole Blood 148 mg/dL (70-110)
--- NOTE | 2024-08-21 12:32 | P.PN ---
Subjective Progress Note Date: 08/21/24 Patient is a 34-year-old female with a past medical history of ESRD on hemodialysis TTS-currently awaiting renal and pancreas transplant, gastroparesis, diabetic neuropathy, hypothyroidism, diabetes type 2, hypertension, seizure disorder, anxiety/depression and prior history of smoking, marijuana and methamphetamine use. Patient presents to ER with complaints of worsening shortness of breath. Patient had dialysis 2 days ago on 08/12/2024. On admission patient found to be hypertensive emergency with volume overload. Patient was started on nitroglycerin drip and was transferred to MICU. Chest x-ray showed severe pulmonary edema EKG showed sinus tachycardia. Laboratory data showed WBC 18.5 hemoglobin 12.8 and platelets 443 sodium 135 potassium 5.5 chloride 94 bicarb is 23 BUN 53 and creatinine 6.78 blood sugar 247 and lactic acid 2.9 AST 46 ALT 23 and alk phos 165 and troponin 0.042 and proBNP 96,400 08/16/2024 Patient is the MICU. Awake alert and oriented x 3. Currently on 2 L via nasal cannula. Patient is undergoing hemodialysis again today. Patient is off nitro drip and Cleviprex drip. Blood pressure is fairly controlled. Continued on blood pressure medications. Laboratory data showed WBC 8.1 hemoglobin 14.0 platelets 532 sodium 133 potassium 5.3 chloride 93 bicarb is 25 BUN 21 and creatinine 4.86 and blood sugar 213 and calcium 10.3 Nephrology and pulmonary is on board. 08/17/2024 Patient is transferred to medical floor. Complains of migraine headache. No complaints of chest pain or shortness of breath. Patient underwent hemodialysis today. Tolerating well. Blood pressure is high this morning with SBP in 180s. Patient was given all her blood pressure medications requiring oxygen at 2 L via nasal cannula. Laboratory data showed WBC 7.8 hemoglobin 14.0 and platelets 470 sodium 133 potassium 4.9 chloride 93 bicarb is 25 BUN 24 and creatinine 5.19 and blood sugar 225 and calcium 9.8. 08/18/2024 Patient is lying in the bed. Awake alert and oriented x 3. On room air. Complains of headache and generalized body pains. Requesting more pain medications. Otherwise blood pressure is much improved today.. Next hemodialysis session will be tomorrow. Blood sugar went up to 478 before lunch. Continued on insulin sliding scale and is also on Levemir 12 units twice daily. Patient is being continued on Imdur, labetalol, Entresto and hydralazine as well as clonidine. Nephrology is on board. 08/19. Patient seen and examined. B. Vitals this morning temperature 98, heart rate 103, lood work done this morning showed WBC 14, hemoglobin 13.9, sodium 133, potassium 5.6, BUN 43, creatinine 7.5, phosphorus 9.1. Patient is undergoing dialysis today. 08/20. Patient seen and examined. Vital signs this morning temperature 98, heart rate 103, respiration 18 blood pressure 165/100. Complaining of pain in her gums with pussy discharge. Complaining of nausea and vomiting as well 08/21. Patient seen and examined. Continues to have nausea and vomiting. Complaining of swelling of her gums and pain in her left jaw. Ordered CT of the face. REVIEW OF SYSTEMS: CONSTITUTIONAL: No fever, no malaise,. CARDIOVASCULAR: No chest pain, no palpitations, no syncope. PULMONARY: No shortness of breath, no cough, GASTROINTESTINAL: No diarrhea, no abdominal pain. NEUROLOGICAL: No headaches, no weakness, PHYSICAL EXAMINATION: GENERAL: The patient is alert and oriented x3, chronically ill looking HEENT: Pupils are round and equally reacting to light. EOMI. No scleral icterus. No conjunctival pallor. Normocephalic, atraumatic. No pharyngeal erythema. No thyromegaly. CARDIOVASCULAR: S1 and S2 present. No murmurs, rubs, or gallops. PULMONARY: Chest is clear to auscultation, no wheezing or crackles. ABDOMEN: Soft, nontender, nondistended, normoactive bowel sounds. No palpable organomegaly. MUSCULOSKELETAL: No joint swelling or deformity. EXTREMITIES: No cyanosis, clubbing, or pedal edema. NEUROLOGICAL: Gross neurological examination did not reveal any focal deficits. SKIN: No rashes. Assessment and plan Acute hypoxic respiratory failure secondary to pulmonary edema and volume overload requiring BiPAP on admission currently titrated down to room air. Hypertensive emergency requiring nitroglycerin drip. Currently off drip. ESRD requiring hemodialysis 4 times per week. Gingivitis Oral tooth infection elevated proBNP level Hyperkalemia improved. Leukocytosis likely reactive. Diabetes type 2 insulin-dependent Hypothyroidism Anemia of chronic disease History of CVA/TIA History of optic neuritis Anxiety/depression History of marijuana use and methamphetamine use Prior history of smoking Monitor vital signs Monitor CBC Monitor CMP Continue aspirin, Lipitor Continue Norvasc, clonidine, hydralazine, labetalol Continue Synthroid Ordered CT face Continue Augmentin Continue antiemetics Monitor blood sugar levels, continue current insulin regimen Continue dialysis per nephrology Pulmonary following ID consulted Labs and medication were reviewed.. Continue same treatment. Continue with symptomatic treatment. Resume home medication. Monitor labs and vitals. DVT and GI prophylaxis. Further recommendations as per clinical course of the patient Dictation was produced using [employer] dictation software. please excuse any grammatical, word or spelling errors. Objective - Vital Signs Vital signs: Vital Signs Temp 98.2 F 08/21/24 08:24 Pulse 89 08/21/24 08:24 Resp 18 08/21/24 08:24 BP 164/90 08/21/24 08:24 Pulse Ox 99 08/21/24 08:24 FiO2 40 08/14/24 11:01 Intake & Output 08/20/24 08/21/24 08/21/24 18:59 06:59 18:59 Intake Total 1500 600 240 Balance 1500 600 240 Weight 61.3 kg Intake: Oral 1500 600 240 Other: # Voids 1 - Labs CBC & Chem 7: 08/21/24 05:49 08/21/24 05:49 Labs: Abnormal Lab Results - Last 24 Hours (Table) 08/20/24 08/20/24 08/20/24 Range/Units 11:22 16:22 20:52 MCV (80.0-100.0) fL MCHC (31.0-37.0) g/dL RDW (11.5-15.5) % Sodium (137-145) mmol/L Potassium (3.5-5.1) mmol/L Chloride (98-107) mmol/L BUN (7-17) mg/dL Creatinine (0.52-1.04) mg/dL Glucose (74-99) mg/dL POC Glucose (mg/dL) 291 H 220 H 176 H (70-110) mg/dL 08/21/24 08/21/24 Range/Units 05:49 05:49 MCV 102.5 H (80.0-100.0) fL MCHC 30.6 L (31.0-37.0) g/dL RDW 18.2 H (11.5-15.5) % Sodium 132 L (137-145) mmol/L Potassium 5.6 H (3.5-5.1) mmol/L Chloride 93 L (98-107) mmol/L BUN 43 H (7-17) mg/dL Creatinine 7.79 H* (0.52-1.04) mg/dL Glucose 65 L (74-99) mg/dL POC Glucose (mg/dL) (70-110) mg/dL
--- NOTE | 2024-08-21 12:47 | P.PN ---
Subjective Progress Note Date: 08/21/24 Principal diagnosis: Hypertensive emergency. This is a 34-year-old female patient with a known history of uncontrolled hypertension, end-stage renal disease requiring hemodialysis 4 times weekly, diabetes mellitus, TIA/CVA, optic neuritis, anemia of chronic disease. She has had multiple admissions for fluid volume overload and hypertensive emergency. She presented here again early this morning with worsening shortness of breath. She states she had dialysis 2 days ago on 08/12/2024. Chest x-ray revealed severe pulmonary edema. She was placed on BiPAP 10/5 and 40% FiO2. She was extremely hypertensive and requiring a nitroglycerin drip currently at 130 mcg/min. White count 18.5. Hemoglobin 12.8. Platelets 443. Sodium 135. Potassium 5.5. Bicarb 23. BUN 53. Creatinine 6.78. Glucose 247. proBNP 96,400. She is seen currently in the emergency department. She remains on BiPAP. She is receiving hemodialysis with a goal of 4 L to be removed today. Patient today on 08/15/2024, she is now in the ICU, undergoing hemodialysis, patient is feeling better. Breathing easier, last night she had to go on BiPAP 10/5/40%, now she is on 2 L nasal cannula, chest x-ray showed dramatic improvement in her pulmonary edema. Remains on Cleviprex at 9 mg/h, patient is on multiple cardiac meds for hypertension, and her blood pressure seems to be quite better controlled at this point. But the plan is to continue tapering the Cleviprex, and once discontinued the patient could be transferred out of the ICU to the cardiac floor. Labs reviewed WBC count is 12.2 hemoglobin is 13.3 basic metabolic profile is normal renal profile showed a BUN of 33 creatinine 5.67 Patient was evaluated today on 08/16/2024, remains in the ICU, remains on hemodialysis, blood pressure seems to be better controlled, patient is maximized on multiple blood pressure medications. Hence considering the patient is off Cleviprex, and she is off nitroglycerin, I will arrange for the patient to transfer sometime later today to a monitored bed on 3 S. In the meantime we will continue blood pressure medications for adequate control of the blood pressure, and continue hemodialysis. WBC count is 8.1 hemoglobin is 14 basic metabolic profile is normal BUN is 21 creatinine 4.86. Bicarb is 25 Patient was evaluated today on 08/17/2024, patient is doing well, on hemodialysis, seems very comfortable, not in any distress, but she intermittently moans and groans. Does not seem to be quite pleased with her overall condition. During my evaluation the patient was having hemodialysis, and did not seem to be in any distress.WBC of 7.8 hemoglobin 14 electrolytes are normal BUN is 24 creatinine 5.19 Reevaluate today on 08/18/2024, patient is doing great, hardly any pulmonary symptoms, however the patient remains extremely quiet, and she has a very dull affect. Very depressed mood.On room air, O2 sats is 100% blood pressure is normal 142/82, patient remains on intermittent hemodialysis. Patient was seen today on 08/19/2024, patient is receiving hemodialysis during my evaluation, her follow-up chest x-ray yesterday showed complete resolution of her pulmonary edema, patient is doing well from the pulmonary perspective hardly any pulmonary symptoms no cough no wheezing no shortness of breath. Patient remains on 2 L nasal cannula but her O2 saturation 100% Seen today on 08/20/2024, patient is doing great, no active pulmonary symptoms, no cough no wheezing no shortness of breath, patient is still receiving hemodialysis pulmonary freed no cough no wheezing no shortness of breath last follow-up chest x-ray showed complete resolution of her fluid overload/pulmonary edema. Progress note dated August 21, 2024. 34-year-old female well-known to our service. The patient is seen today in room 352. When asked how she is feeling, she shakes her head, and says not will well. The patient is not receiving any IV fluids. She continues on oxygen at 2 L. Current labs include a white count of 7.3, hemoglobin 13.1, hematocrit 42.9, and a normal platelet count. Sodium 132, potassium 5.6, chlorides 93, CO2 25, BUN 43, creatinine is 7.79. Glucose is 148. Objective - Vital Signs Vital signs: Vital Signs Temp 98.2 F 08/21/24 08:24 Pulse 96 08/21/24 12:27 Resp 20 08/21/24 12:27 BP 159/92 08/21/24 12:27 Pulse Ox 98 08/21/24 12:27 FiO2 40 08/14/24 11:01 Intake & Output 08/20/24 08/21/24 08/21/24 18:59 06:59 18:59 Intake Total 1500 600 240 Balance 1500 600 240 Weight 61.3 kg Intake: Oral 1500 600 240 Other: # Voids 1 - Exam No acute distress, oriented 3. Currently on 2 L. HEENT examination is grossly unremarkable. Mucous membranes are moist. No oral lesions. Neck supple. Full range of motion. No adenopathy thyromegaly or neck vein distention. Cardiovascular examination reveals regular rhythm rate. S1-S2 normal. No S3 or S4. No discernible murmur noted. Lungs reveal mild bibasilar crackles. No rhonchi or wheezes. Breath sounds are equal. Abdomen soft bowel sounds are heard. No masses or tenderness. Extremities are intact. No cyanosis clubbing or edema. Skin is without rash or lesion. Neurologic examination is brief but nonfocal. - Labs CBC & Chem 7: 08/21/24 05:49 08/21/24 05:49 Labs: Abnormal Lab Results - Last 24 Hours (Table) 08/20/24 08/20/24 08/21/24 Range/Units 16:22 20:52 05:49 MCV 102.5 H (80.0-100.0) fL MCHC 30.6 L (31.0-37.0) g/dL RDW 18.2 H (11.5-15.5) % Sodium (137-145) mmol/L Potassium (3.5-5.1) mmol/L Chloride (98-107) mmol/L BUN (7-17) mg/dL Creatinine (0.52-1.04) mg/dL Glucose (74-99) mg/dL POC Glucose (mg/dL) 220 H 176 H (70-110) mg/dL 08/21/24 08/21/24 Range/Units 05:49 11:20 MCV (80.0-100.0) fL MCHC (31.0-37.0) g/dL RDW (11.5-15.5) % Sodium 132 L (137-145) mmol/L Potassium 5.6 H (3.5-5.1) mmol/L Chloride 93 L (98-107) mmol/L BUN 43 H (7-17) mg/dL Creatinine 7.79 H* (0.52-1.04) mg/dL Glucose 65 L (74-99) mg/dL POC Glucose (mg/dL) 148 H (70-110) mg/dL Assessment and Plan Assessment: Acute hypoxemic respiratory failure secondary to fluid overload/pulmonary edema. Hypertensive urgency/emergency. End-stage renal disease, requiring hemodialysis, 4 times a week. Hyperkalemia. Diabetes mellitus, insulin-dependent. Anemia of chronic disease. History of CVA/TIA. History of optic neuritis. Hypothyroidism. History of depression. Plan: Plan dated August 21, 2024. The patient is seen today in room 352. She continues on oxygen at 2 L. Saturations are adequate. No IV fluids. Labs, x-rays, and all medications are reviewed. The patient's overall prognosis remains guarded. We will continue to follow make recommendations along the way. The patient is well-known to our service, as she has had multiple admissions, for acute pulmonary edema, and acute hypertensive urgency/emergency. Time with Patient: Less than 30
--- NOTE | 2024-08-21 13:41 | CT ---
EXAMINATION TYPE: CT facial bones wo con CT DLP: 488.9 mGycm, Automated exposure control for dose reduction was used. DATE OF EXAM: 08/21/2024 1:21 PM COMPARISON: CT brain 05/14/2024, CTs of 02/22/2024. CLINICAL INDICATION:Female, 34 years old with history of swelling of the face. rule out infection; PH H, SWELLING OF THE FACE, RULE OUT INFECTION TECHNIQUE: Multiple unenhanced axial CT images were obtained of the facial bones soft tissue and bone windows. Coronal, axial and sagittal reformatted images were also provided in soft tissue and bone windows and submitted for interpretation. FINDINGS: Dental amalgam creates streak artifact which limits attenuation. There is no evidence of fracture, subluxation, dislocation. Mild soft tissue swelling of the chin. Th e orbital contents are unremarkable. Nasal septal deviation to the left. The temporal-mandibular join ts appear symmetric. The visualized portion of the paranasal sinuses appear clear. Periapical lucenc y involving the left mandibular first premolar. No definitive fluid collection. Left lip piercing aretha ntified. IMPRESSION: 1. No acute facial bone fracture. 2. Mild soft tissue swelling of the chin with periapical lucency involving the left mandibular first premolar suggesting cavity. No surrounding organized fluid collection to suggest abscess. [facility], , 08/21/2024 1:39 PM
[2024-08-21 16:33] LABS: Glucose,Whole Blood 110 mg/dL (70-110)
[2024-08-21 20:25] LABS: Glucose,Whole Blood 416 mg/dL (70-110)
[2024-08-21] MEDS: diphenhydrAMINE 25 MG CAP PO PRN (21:15)
[2024-08-22] MEDS: AMPICILLIN-SULBACTAM 3 GM in SODIUM CHLORIDE 0.9% 100 ML IVPB SCH (00:45)
[2024-08-22 05:58] LABS: Glucose,Whole Blood 139 mg/dL (70-110)
--- NOTE | 2024-08-22 08:45 | P.CONS ---
History of Present Illness - Reason for Consult Consult date: 08/21/24 Tooth abscess, facial swelling Requesting physician: Getachew Dacosta - Chief Complaint Pain to the lower jaw teeth x few days - History of Present Illness Patient is a 34-year-old female with a past medical history significant for diabetes mellitus reflux hypertension seizure disorder end-stage renal disease on hemodialysis with a right chest wall catheter patient presented to the hospital about a week ago for evaluation of increasing shortness of breath and this patient has been managed by admitting pulmonary and nephrology team patient started complaining of pain to the lower jaw teeth describing the pain to be sharp moderate intensity and difficulty achieving and swallowing has been diagnosed with a dental abscess she was started on Augmentin infectious he was consulted for further management patient on presentation to the hospital was afebrile and no fever have been called subsequently patient was not tachycardic or hypotensive patient did have a elevated white count of 18.4 of admission with a white count of 14,000 on 08/19/2024 BUN and creatinine has been elevated liver enzymes are normal patient did have a chest x-ray no acute process CT of the face has been requested pending completion infectious disease was consulted for further management of antibiotic therapy Review of Systems Positive point and negatives has been mentioned in the HPI, complete review of systems was performed and all other systems are negative Past Medical History Past Medical History: Diabetes Mellitus, GERD/Reflux, Hypertension, Renal Disease, Seizure Disorder, Thyroid Disorder Additional Past Medical History / Comment(s): Neuropathy, last seizure 2020, gastroparesis, headaches with dialysis, states "fast heart rate" since giving ., receives Hemodialysis Wednesday- and Saturdays at [facility] [place] right chest hemodialysis catheter., severe HTN. patient awaiting Kidney and Pancrease Transplant. , states sometimes she has had stroke -like symptoms but no stroke., hx of c-diff 2013. History of Any Multi-Drug Resistant Organisms: None Reported Year Discovered:: None MDRO Source:: None Past Surgical History: Adenoidectomy, Section, Cholecystectomy, Orthopedic Surgery, Tonsillectomy Additional Past Surgical History / Comment(s): 2 KNEE SCOPES, EAR TUBES, additional left knee surgery related to fracture, new port a cath jul 29, eye surgeries for diabetic retinopathy. Past Anesthesia/Blood Transfusion Reactions: Previous Problems w/ Anesthesia Additional Past Anesthesia/Blood Transfusion Reaction / Comm: confusion Past Psychological History: Anxiety, Depression Smoking Status: Former smoker Past Alcohol Use History: None Reported Additional Past Alcohol Use History / Comment(s): quit smoking 01/08 hx of up to 3 ppd. Past Drug Use History: Marijuana, Methamphetamine Additional Drug Use History / Comment(s): previously using marijuana edibles in nov 2023. Not eating currently - Past Family History Father History Unknown: Yes Family Medical History: Unable to Obtain Mother History Unknown: Yes Family Medical History: No Reported History Grandfather History Unknown: Yes Family Medical History: Coronary Artery Disease (CAD) Additional Family Medical History / Comment(s): Diabetes mellitus type 2 Medications and Allergies Home Medications Medication Instructions Recorded Confirmed Type Docusate [Colace] 100 mg PO DAILY@79902/05/24 08/14/24 History Lidocaine 4% Patch 1 patch TOPICAL DAILY@79902/05/24 08/14/24 History Magnesium Hydroxide [Milk of 7,200 mg PO DAILY PRN 02/05/24 08/14/24 History Magnesia Concentrate] bisacodyL [Dulcolax] 10 mg RECTAL DAILY PRN 02/05/24 08/14/24 History Ipratropium-Albuterol Nebulize 3 ml INHALATION RT-TID PRN each 02/14/24 08/14/24 Rx [Duoneb 0.5 mg-3 mg/3 ml Soln] polyethylene glycoL 3350 [Miralax] 17 gm PO AC-LUNCH #527 gm 02/14/24 08/14/24 Rx Acetaminophen [Tylenol] 650 mg PO Q4H PRN 02/18/24 08/14/24 History Biotene Dry Mouth/Throat 10 ml PO BID PRN 02/18/24 08/14/24 History Melatonin 1 mg PO HS tab 02/25/24 08/14/24 Rx Butalb/APAP/Caff 50-325-40Mg 1 tab PO Q4HR PRN 03/14/24 08/14/24 History [Fioricet 50-325-40] Darbepoetin Artur [Aranesp] 40 mcg SQ MO 03/14/24 08/14/24 History Loratadine [Claritin] 5 mg PO DAILY tab 03/30/24 08/14/24 Rx INSULIN ASPART (NovoLOG) [NovoLOG See Protocol SQ ACHS 04/16/24 08/14/24 History (formulary)] Aspirin 81 mg PO DAILY@0800 #30 tab 05/18/24 08/14/24 Rx Famotidine [Pepcid] 20 mg PO BID #60 tab 07/11/24 08/14/24 Rx Insulin Glargine [Lantus Vial] 12 unit SQ BID #1 each 07/11/24 08/14/24 Rx NIFEdipine XL [Procardia XL] 60 mg PO BID@0800,1700 #60 tab 07/11/24 08/14/24 Rx Ondansetron [Zofran] 4 mg PO Q8HR PRN #20 tab 07/11/24 08/14/24 Rx Sevelamer [Renvela] 800 mg PO HS #30 tab 07/11/24 08/14/24 Rx ALPRAZolam [Xanax] 0.25 mg PO DIRECTED PRN 08/14/24 08/14/24 History Atorvastatin [Lipitor] 40 mg PO DIRECTED 08/14/24 08/14/24 History Divalproex ER [Depakote ER] 500 mg PO DIRECTED 08/14/24 08/14/24 History Folic Acid-Vit B Complex-Vit C 1 cap PO DIRECTED 08/14/24 08/14/24 History [Nephrocaps] HYDROcodone/APAP 7.5-325MG [Bern 1 tab PO DIRECTED PRN 08/14/24 08/14/24 History 7.5-325] Isosorbide Mononitrate ER [Imdur] 30 mg PO DIRECTED 08/14/24 08/14/24 History Labetalol [Trandate] 200 mg PO DIRECTED 08/14/24 08/14/24 History Levothyroxine Sodium [Synthroid] 175 mcg PO DIRECTED 08/14/24 08/14/24 History Metoclopramide [Reglan] 5 mg PO DIRECTED PRN 08/14/24 08/14/24 History Pantoprazole [Protonix] 40 mg PO DIRECTED 08/14/24 08/14/24 History [place] Caps 1 cap PO DIRECTED 08/14/24 08/14/24 History Sacubitril/Valsartan [Entresto 49 1 tab PO DIRECTED 08/14/24 08/14/24 History mg-51 mg Tablet] Sertraline [Zoloft] 200 mg PO DIRECTED 08/14/24 08/14/24 History Sevelamer [Renvela] 1,600 mg PO DIRECTED 08/14/24 08/14/24 History cloNIDine HCL [Catapres] 0.3 mg PO DIRECTED 08/14/24 08/14/24 History hydrALAZINE HCL [Apresoline] 150 mg PO DIRECTED 08/14/24 08/14/24 History methocarbamoL [Robaxin-750] 750 mg PO DIRECTED 08/14/24 08/14/24 History traZODone HCL [Desyrel] 50 mg PO DIRECTED 08/14/24 08/14/24 History Allergies Allergy/AdvReac Type Severity Reaction Status Date / Time hydromorphone HCl Allergy Anaphylaxis Verified 08/14/24 09:55 [From Dilaudid] propoxyphene Allergy Rash/Hives Verified 08/14/24 09:55 [From Darvocet-N] tramadol Allergy Anaphylaxis Verified 08/14/24 09:55 ibuprofen [From Motrin] AdvReac unable to Verified 08/14/24 09:55 take due to kidney disease venom-honey bee AdvReac passes out Verified 08/14/24 09:55 [bee venom (honey bee)] Physical Exam Vitals: Vital Signs Temp Pulse Pulse Resp BP Pulse Ox 08/21/24 12:27 96 20 159/92 98 08/21/24 08:24 98.2 F 89 18 164/90 99 08/21/24 04:00 97.7 F 90 18 147/86 98 08/21/24 02:00 85 88 16 08/21/24 00:42 98.2 F 88 16 160/98 99 08/20/24 21:13 87 16 159/94 98 08/20/24 20:00 85 87 16 08/20/24 15:00 81 17 125/66 99 08/20/24 14:00 85 Intake and Output 08/20/24 08/21/24 08/21/24 22:59 06:59 14:59 Intake Total 960 120 240 Balance 960 120 240 Intake: Oral 960 120 240 Other: # Voids 1 Weight 61.3 kg GENERAL DESCRIPTION: Middle-aged female lying in bed, no distress. No tachypnea or accessory muscle of respiration use. HEENT: Shows Pallor , no scleral icterus. Oral mucous membrane is dry. Lower jaw with minimal swelling no significant redness or drainage was noticed NECK: Trachea central, no thyromegaly. LUNGS: Unlabored breathing. Clear to auscultation anteriorly. No wheeze or crackle. HEART: S1, S2, regular rate and rhythm. No loud murmur ABDOMEN: Soft, no tenderness , guarding or rigidity, no organomegaly EXTREMITIES: No edema of feet. SKIN: No rash, no masses palpable. NEUROLOGICAL: The patient is awake, alert, oriented x3, mood and affect normal. Results CBC & Chem 7: 08/21/24 05:49 08/21/24 05:49 Labs: Abnormal Lab Results - Last 24 Hours (Table) 08/20/24 08/20/24 08/21/24 Range/Units 16:22 20:52 05:49 MCV 102.5 H (80.0-100.0) fL MCHC 30.6 L (31.0-37.0) g/dL RDW 18.2 H (11.5-15.5) % Sodium (137-145) mmol/L Potassium (3.5-5.1) mmol/L Chloride (98-107) mmol/L BUN (7-17) mg/dL Creatinine (0.52-1.04) mg/dL Glucose (74-99) mg/dL POC Glucose (mg/dL) 220 H 176 H (70-110) mg/dL 08/21/24 08/21/24 Range/Units 05:49 11:20 MCV (80.0-100.0) fL MCHC (31.0-37.0) g/dL RDW (11.5-15.5) % Sodium 132 L (137-145) mmol/L Potassium 5.6 H (3.5-5.1) mmol/L Chloride 93 L (98-107) mmol/L BUN 43 H (7-17) mg/dL Creatinine 7.79 H* (0.52-1.04) mg/dL Glucose 65 L (74-99) mg/dL POC Glucose (mg/dL) 148 H (70-110) mg/dL Assessment and Plan (1) Dental infection Current Visit: Yes Status: Acute Code(s): K04.7 - PERIAPICAL ABSCESS WITHOUT SINUS SNOMED Code(s): 057069560 (2) Infected dental caries Current Visit: Yes Status: Acute Code(s): K02.9 - DENTAL CARIES, UNSPECIFIED; K04.7 - PERIAPICAL ABSCESS WITHOUT SINUS SNOMED Code(s): 17738360 Plan: 1patient is a 34-year female with multiple comorbidity including end- stage renal disease on dialysis presented to hospital with shortness of breath and also complaining of lower jaw dental pain concerning for dental caries possible abscess less likely but not excluded and will need to cover for the polymicrobial oral awa. 2patient complaining of difficulty swallowing we will go ahead and discontinue Augmentin and start the patient on Unasyn. 3await CT of the face already requested by admitting team we will follow on clinical condition and cultures to further adjust medication if needed Thank you for this consultation we will follow the patient along with you Dictation was produced using [employer] dictation software. please excuse any grammatical, word or spelling errors. Time with Patient: Greater than 30
--- NOTE | 2024-08-22 08:45 | P.PN ---
Subjective Patient is seen in follow-up for end-stage renal disease. She is maintained on hemodialysis Saturdays. Oral intake remains poor. Tolerated 2.5 L ultrafiltration yesterday. Denies chest pain or shortness of breath. Vital signs are stable. General: No acute distress. HEENT: Head exam is unremarkable. LUNGS: No audible rhonchi or wheezes. HEART: Rate and Rhythm are regular. ABDOMEN: Nontender. EXTREMITITES: No edema. Objective - Vital Signs Vital signs: Vital Signs Temp 97.8 F 08/22/24 08:39 Pulse 88 08/22/24 08:39 Resp 18 08/22/24 08:39 BP 170/97 08/22/24 08:39 Pulse Ox 99 08/22/24 08:39 FiO2 40 08/14/24 11:01 Intake & Output 08/21/24 08/22/24 08/22/24 18:59 06:59 18:59 Intake Total 1800 240 Output Total 5600 Balance -3800 240 Weight 60.5 kg Intake: Oral 1200 240 Hemodialysis 600 Output: Hemodialysis 3100 Hemodialysis Net Amount 2500 Other: Voiding Method Toilet # Voids 1 - Labs CBC & Chem 7: 08/21/24 05:49 08/21/24 05:49 Labs: Abnormal Lab Results - Last 24 Hours (Table) 08/21/24 08/21/24 08/22/24 Range/Units 11:20 20:23 05:56 POC Glucose (mg/dL) 148 H 416 H 139 H (70-110) mg/dL Assessment and Plan Plan: Assessment: 1. End-stage renal disease maintained on hemodialysis on Saturdays. 2. Hypertension with chronic kidney disease. Stable. 3. Acute hypoxic respiratory failure secondary to volume overload. Improved. 4. Diabetes mellitus with gastroparesis. 5. Dental abscess maintained on antibiotics. 6. Chronic kidney disease mineral bone disease maintained on phosphate binders. 7. Mild hyperkalemia secondary to chronic kidney disease and Entresto. Expect improvement postdialysis. Plan: Hemodialysis today per her outpatient schedule. Renal diet.
[2024-08-22 12:06] LABS: Glucose,Whole Blood 103 mg/dL (70-110)
--- NOTE | 2024-08-22 12:36 | P.PN ---
Subjective Progress Note Date: 08/22/24 Patient is a 34-year-old female with a past medical history of ESRD on hemodialysis TTS-currently awaiting renal and pancreas transplant, gastroparesis, diabetic neuropathy, hypothyroidism, diabetes type 2, hypertension, seizure disorder, anxiety/depression and prior history of smoking, marijuana and methamphetamine use. Patient presents to ER with complaints of worsening shortness of breath. Patient had dialysis 2 days ago on 08/12/2024. On admission patient found to be hypertensive emergency with volume overload. Patient was started on nitroglycerin drip and was transferred to MICU. Chest x-ray showed severe pulmonary edema EKG showed sinus tachycardia. Laboratory data showed WBC 18.5 hemoglobin 12.8 and platelets 443 sodium 135 potassium 5.5 chloride 94 bicarb is 23 BUN 53 and creatinine 6.78 blood sugar 247 and lactic acid 2.9 AST 46 ALT 23 and alk phos 165 and troponin 0.042 and proBNP 96,400 08/16/2024 Patient is the MICU. Awake alert and oriented x 3. Currently on 2 L via nasal cannula. Patient is undergoing hemodialysis again today. Patient is off nitro drip and Cleviprex drip. Blood pressure is fairly controlled. Continued on blood pressure medications. Laboratory data showed WBC 8.1 hemoglobin 14.0 platelets 532 sodium 133 potassium 5.3 chloride 93 bicarb is 25 BUN 21 and creatinine 4.86 and blood sugar 213 and calcium 10.3 Nephrology and pulmonary is on board. 08/17/2024 Patient is transferred to medical floor. Complains of migraine headache. No complaints of chest pain or shortness of breath. Patient underwent hemodialysis today. Tolerating well. Blood pressure is high this morning with SBP in 180s. Patient was given all her blood pressure medications requiring oxygen at 2 L via nasal cannula. Laboratory data showed WBC 7.8 hemoglobin 14.0 and platelets 470 sodium 133 potassium 4.9 chloride 93 bicarb is 25 BUN 24 and creatinine 5.19 and blood sugar 225 and calcium 9.8. 08/18/2024 Patient is lying in the bed. Awake alert and oriented x 3. On room air. Complains of headache and generalized body pains. Requesting more pain medications. Otherwise blood pressure is much improved today.. Next hemodialysis session will be tomorrow. Blood sugar went up to 478 before lunch. Continued on insulin sliding scale and is also on Levemir 12 units twice daily. Patient is being continued on Imdur, labetalol, Entresto and hydralazine as well as clonidine. Nephrology is on board. 08/19. Patient seen and examined. B. Vitals this morning temperature 98, heart rate 103, lood work done this morning showed WBC 14, hemoglobin 13.9, sodium 133, potassium 5.6, BUN 43, creatinine 7.5, phosphorus 9.1. Patient is undergoing dialysis today. 08/20. Patient seen and examined. Vital signs this morning temperature 98, heart rate 103, respiration 18 blood pressure 165/100. Complaining of pain in her gums with pussy discharge. Complaining of nausea and vomiting as well 08/21. Patient seen and examined. Continues to have nausea and vomiting. Complaining of swelling of her gums and pain in her left jaw. Ordered CT of the face. 08/22. Patient seen and examined. Complaining of nausea but no vomiting. Currently undergoing dialysis. REVIEW OF SYSTEMS: CONSTITUTIONAL: No fever, no malaise,. CARDIOVASCULAR: No chest pain, no palpitations, no syncope. PULMONARY: No shortness of breath, no cough, GASTROINTESTINAL: No diarrhea, no abdominal pain. NEUROLOGICAL: No headaches, no weakness, PHYSICAL EXAMINATION: GENERAL: The patient is alert and oriented x3, chronically ill looking HEENT: Pupils are round and equally reacting to light. EOMI. No scleral icterus. No conjunctival pallor. Normocephalic, atraumatic. No pharyngeal erythema. No thyromegaly. CARDIOVASCULAR: S1 and S2 present. No murmurs, rubs, or gallops. PULMONARY: Chest is clear to auscultation, no wheezing or crackles. ABDOMEN: Soft, nontender, nondistended, normoactive bowel sounds. No palpable organomegaly. MUSCULOSKELETAL: No joint swelling or deformity. EXTREMITIES: No cyanosis, clubbing, or pedal edema. NEUROLOGICAL: Gross neurological examination did not reveal any focal deficits. SKIN: No rashes. Assessment and plan Acute hypoxic respiratory failure secondary to pulmonary edema and volume overload requiring BiPAP on admission currently titrated down to room air. Hypertensive emergency requiring nitroglycerin drip. Currently off drip. ESRD requiring hemodialysis 4 times per week. Gingivitis Oral tooth infection elevated proBNP level Hyperkalemia improved. Leukocytosis likely reactive. Diabetes type 2 insulin-dependent Hypothyroidism Anemia of chronic disease History of CVA/TIA History of optic neuritis Anxiety/depression History of marijuana use and methamphetamine use Prior history of smoking Monitor vital signs Monitor CBC Monitor CMP Continue aspirin, Lipitor Continue Norvasc, clonidine, hydralazine, labetalol Continue Synthroid CT face did not show any evidence of any abscess. Antibiotics changed to IV Unasyn Continue antiemetics Monitor blood sugar levels, continue current insulin regimen Continue dialysis per nephrology Pulmonary following ID following Labs and medication were reviewed.. Continue same treatment. Continue with symptomatic treatment. Resume home medication. Monitor labs and vitals. DVT and GI prophylaxis. Further recommendations as per clinical course of the patient Dictation was produced using [employer] dictation software. please excuse any grammatical, word or spelling errors. Objective - Vital Signs Vital signs: Vital Signs Temp 98.0 F 08/22/24 12:25 Pulse 88 08/22/24 12:25 Resp 18 08/22/24 12:25 BP 176/97 08/22/24 12:25 Pulse Ox 97 08/22/24 12:25 FiO2 40 08/14/24 11:01 Intake & Output 08/21/24 08/22/24 08/22/24 18:59 06:59 18:59 Intake Total 1800 240 Output Total 5600 Balance -3800 240 Weight 60.5 kg Intake: Oral 1200 240 Hemodialysis 600 Output: Hemodialysis 3100 Hemodialysis Net Amount 2500 Other: Voiding Method Toilet Toilet # Voids 1 - Labs CBC & Chem 7: 08/21/24 05:49 08/21/24 05:49 Labs: Abnormal Lab Results - Last 24 Hours (Table) 08/21/24 08/22/24 Range/Units 20:23 05:56 POC Glucose (mg/dL) 416 H 139 H (70-110) mg/dL
--- NOTE | 2024-08-22 13:23 | P.PN ---
Subjective Progress Note Date: 08/22/24 Principal diagnosis: Reason for follow-up is infected teeth Patient is a 34-year-old female with a past medical history significant for diabetes mellitus reflux hypertension seizure disorder end-stage renal disease on hemodialysis presented to hospital for shortness of breath patient was also complaining of pain to the lower jaw area concerning for infected teeth/abscess prompted this consultation. On today's evaluation that is 08/22/2024, the patient continues to be afebrile, the patient is on room air however is complaining of some shortness of breath currently undergoing dialysis, still complaining of pain to the lower jaw, no difficulty swallowing no nausea vomiting abdominal pain or diarrhea. No new lab has been repeated today CT of the face was negative for any abscess Objective - Vital Signs Vital signs: Vital Signs Temp 98.0 F 08/22/24 12:25 Pulse 88 08/22/24 12:25 Resp 18 08/22/24 12:25 BP 176/97 08/22/24 12:25 Pulse Ox 97 08/22/24 12:25 FiO2 40 08/14/24 11:01 Intake & Output 08/21/24 08/22/24 08/22/24 18:59 06:59 18:59 Intake Total 1800 240 Output Total 5600 Balance -3800 240 Weight 60.5 kg Intake: Oral 1200 240 Hemodialysis 600 Output: Hemodialysis 3100 Hemodialysis Net Amount 2500 Other: Voiding Method Toilet Toilet # Voids 1 - Exam GENERAL DESCRIPTION: Middle-age female lying in bed in no distress RESPIRATORY SYSTEM: Unlabored breathing , decreased breath sounds at bases HEART: S1 S2 regular rate and rhythm , ABDOMEN: Soft , no tenderness EXTREMITIES: No edema feet - Labs CBC & Chem 7: 08/21/24 05:49 08/21/24 05:49 Labs: Abnormal Lab Results - Last 24 Hours (Table) 08/21/24 08/22/24 Range/Units 20:23 05:56 POC Glucose (mg/dL) 416 H 139 H (70-110) mg/dL Assessment and Plan (1) Dental infection Current Visit: Yes Status: Acute Code(s): K04.7 - PERIAPICAL ABSCESS WITHOUT SINUS SNOMED Code(s): 309826908 (2) Infected dental caries Current Visit: Yes Status: Acute Code(s): K02.9 - DENTAL CARIES, UNSPECIF IED; K04.7 - PERIAPICAL ABSCESS WITHOUT SINUS SNOMED Code(s): 89264667 Plan: 1patient is a 34-year female with multiple comorbidity including end- stage renal disease on dialysis presented to hospital with shortness of breath and also complaining of lower jaw dental pain concerning for dental caries possible abscess less likely but not excluded and will need to cover for the polymicrobial oral awa. 2 CT of the face did not show any evidence of abscess 3we will keep the patient on Unasyn transition to oral Augmentin on discharge Dictation was produced using [employer] dictation software. please excuse any grammatical, word or spelling errors. Time with Patient: Less than 30
--- NOTE | 2024-08-22 13:24 | P.PN ---
Subjective Progress Note Date: 08/22/24 Principal diagnosis: Hypertensive emergency. This is a 34-year-old female patient with a known history of uncontrolled hypertension, end-stage renal disease requiring hemodialysis 4 times weekly, diabetes mellitus, TIA/CVA, optic neuritis, anemia of chronic disease. She has had multiple admissions for fluid volume overload and hypertensive emergency. She presented here again early this morning with worsening shortness of breath. She states she had dialysis 2 days ago on 08/12/2024. Chest x-ray revealed severe pulmonary edema. She was placed on BiPAP 10/5 and 40% FiO2. She was extremely hypertensive and requiring a nitroglycerin drip currently at 130 mcg/min. White count 18.5. Hemoglobin 12.8. Platelets 443. Sodium 135. Potassium 5.5. Bicarb 23. BUN 53. Creatinine 6.78. Glucose 247. proBNP 96,400. She is seen currently in the emergency department. She remains on BiPAP. She is receiving hemodialysis with a goal of 4 L to be removed today. Patient today on 08/15/2024, she is now in the ICU, undergoing hemodialysis, patient is feeling better. Breathing easier, last night she had to go on BiPAP 10/5/40%, now she is on 2 L nasal cannula, chest x-ray showed dramatic improvement in her pulmonary edema. Remains on Cleviprex at 9 mg/h, patient is on multiple cardiac meds for hypertension, and her blood pressure seems to be quite better controlled at this point. But the plan is to continue tapering the Cleviprex, and once discontinued the patient could be transferred out of the ICU to the cardiac floor. Labs reviewed WBC count is 12.2 hemoglobin is 13.3 basic metabolic profile is normal renal profile showed a BUN of 33 creatinine 5.67 Patient was evaluated today on 08/16/2024, remains in the ICU, remains on hemodialysis, blood pressure seems to be better controlled, patient is maximized on multiple blood pressure medications. Hence considering the patient is off Cleviprex, and she is off nitroglycerin, I will arrange for the patient to transfer sometime later today to a monitored bed on 3 S. In the meantime we will continue blood pressure medications for adequate control of the blood pressure, and continue hemodialysis. WBC count is 8.1 hemoglobin is 14 basic metabolic profile is normal BUN is 21 creatinine 4.86. Bicarb is 25 Patient was evaluated today on 08/17/2024, patient is doing well, on hemodialysis, seems very comfortable, not in any distress, but she intermittently moans and groans. Does not seem to be quite pleased with her overall condition. During my evaluation the patient was having hemodialysis, and did not seem to be in any distress.WBC of 7.8 hemoglobin 14 electrolytes are normal BUN is 24 creatinine 5.19 Reevaluate today on 08/18/2024, patient is doing great, hardly any pulmonary symptoms, however the patient remains extremely quiet, and she has a very dull affect. Very depressed mood.On room air, O2 sats is 100% blood pressure is normal 142/82, patient remains on intermittent hemodialysis. Patient was seen today on 08/19/2024, patient is receiving hemodialysis during my evaluation, her follow-up chest x-ray yesterday showed complete resolution of her pulmonary edema, patient is doing well from the pulmonary perspective hardly any pulmonary symptoms no cough no wheezing no shortness of breath. Patient remains on 2 L nasal cannula but her O2 saturation 100% Seen today on 08/20/2024, patient is doing great, no active pulmonary symptoms, no cough no wheezing no shortness of breath, patient is still receiving hemodialysis pulmonary freed no cough no wheezing no shortness of breath last follow-up chest x-ray showed complete resolution of her fluid overload/pulmonary edema. Progress note dated August 21, 2024. 34-year-old female well-known to our service. The patient is seen today in room 352. When asked how she is feeling, she shakes her head, and says not will well. The patient is not receiving any IV fluids. She continues on oxygen at 2 L. Current labs include a white count of 7.3, hemoglobin 13.1, hematocrit 42.9, and a normal platelet count. Sodium 132, potassium 5.6, chlorides 93, CO2 25, BUN 43, creatinine is 7.79. Glucose is 148. Progress note dated August 22, 2024. 34-year-old female well-known to our service. She is seen today in room 352. She is currently undergoing hemodialysis. She is not receiving any IV fluids. She is on 2 L nasal cannula. She denies any shortness of breath. The plan for hemodialysis is removal of 2 L of fluid. No new labs today. Glucose 103. Objective - Vital Signs Vital signs: Vital Signs Temp 98.0 F 08/22/24 12:25 Pulse 88 08/22/24 12:25 Resp 18 08/22/24 12:25 BP 176/97 08/22/24 12:25 Pulse Ox 97 08/22/24 12:25 FiO2 40 08/14/24 11:01 Intake & Output 08/21/24 08/22/24 08/22/24 18:59 06:59 18:59 Intake Total 1800 240 Output Total 5600 Balance -3800 240 Weight 60.5 kg Intake: Oral 1200 240 Hemodialysis 600 Output: Hemodialysis 3100 Hemodialysis Net Amount 2500 Other: Voiding Method Toilet Toilet # Voids 1 - Exam No acute distress, oriented 3. Currently on 2 L. HEENT examination is grossly unremarkable. Mucous membranes are moist. No oral lesions. Neck supple. Full range of motion. No adenopathy thyromegaly or neck vein distention. Cardiovascular examination reveals regular rhythm rate. S1-S2 normal. No S3 or S4. No discernible murmur noted. Lungs reveal mild bibasilar crackles. No rhonchi or wheezes. Breath sounds are equal. Abdomen soft bowel sounds are heard. No masses or tenderness. Extremities are intact. No cyanosis clubbing or edema. Skin is without rash or lesion. Neurologic examination is brief but nonfocal. - Labs CBC & Chem 7: 08/21/24 05:49 08/21/24 05:49 Labs: Abnormal Lab Results - Last 24 Hours (Table) 08/21/24 08/22/24 Range/Units 20:23 05:56 POC Glucose (mg/dL) 416 H 139 H (70-110) mg/dL Assessment and Plan Assessment: Acute hypoxemic respiratory failure secondary to fluid overload/pulmonary edema. Hypertensive urgency/emergency. End-stage renal disease, requiring hemodialysis, 4 times a week. Hyperkalemia. Diabetes mellitus, insulin-dependent. Anemia of chronic disease. History of CVA/TIA. History of optic neuritis. Hypothyroidism. History of depression. Plan: Plan dated August 21, 2024. The patient is seen today in room 352. She continues on oxygen at 2 L. Saturations are adequate. No IV fluids. Labs, x-rays, and all medications are reviewed. The patient's overall prognosis remains guarded. We will continue to follow make recommendations along the way. The patient is well-known to our service, as she has had multiple admissions, for acute pulmonary edema, and acute hypertensive urgency/emergency. Plan dated August 22, 2024. The patient is seen again in room 352. The patient continues on oxygen at 2 L. Saturations are in the mid 90s. The patient is not receiving any IV fluids. Labs, x-rays, and all medications are reviewed. The patient is undergoing hemodialysis today. The plan is to remove 2 L. Currently she is tolerating dialysis well. We will continue to follow the patient, and make recommendations along the way. Prognosis is certainly guarded, given her multiple admissions. Time with Patient: Less than 30
[2024-08-22 16:38] LABS: Glucose,Whole Blood 322 mg/dL (70-110)
[2024-08-22 20:18] LABS: Glucose,Whole Blood 251 mg/dL (70-110)
[2024-08-23 05:54] LABS: Glucose,Whole Blood 51 mg/dL (70-110)
[2024-08-23 06:25] LABS: Glucose,Whole Blood 60 mg/dL (70-110)
[2024-08-23 06:45] LABS: Glucose,Whole Blood 68 mg/dL (70-110)
[2024-08-23 07:04] LABS: Glucose,Whole Blood 84 mg/dL (70-110)
[2024-08-23 07:31] LABS: Anisocytosis Slight; Basophils % (A) 1 %; Eosinophils # (A) 0.5 k/uL (0-0.7); Eosinophils % (A) 9 %; HCT 43.2 % (34.0-46.0); HGB 13.5 gm/dL (11.4-16.0); Hypochromasia Moderate; Lymphocytes % (A) 17 %; MCH 31.7 pg (25.0-35.0); MCHC 31.2 g/dL (31.0-37.0); MCV 101.7 fL (80.0-100.0); Macrocytosis Moderate; Mean Platelet Volume 7.6; Monocytes # (A) 0.9 k/uL (0-1.0); Monocytes % (A) 16 %; Neutrophils # (A) 2.9 k/uL (1.3-7.7); Neutrophils % (A) 53 %; Platelet Count 252 k/uL (150-450); RBC 4.25 m/uL (3.80-5.40); RDW 17.7 % (11.5-15.5); WBC 5.5 k/uL (3.8-10.6)
[2024-08-23 07:42] LABS: ALT 12 U/L (4-34); AST 22 U/L (14-36); African American GFR (CKD) 13 (>60 ml/min/1.73 sqM); Alkaline Phosphatase 74 U/L (38-126); Anion Gap 12 mmol/L; Blood Urea Nitrogen 25 mg/dL (7-17); Calcium 9.1 mg/dL (8.4-10.2); Carbon Dioxide 26 mmol/L (22-30); Chloride 97 mmol/L (98-107); Glucose 84 mg/dL (74-99); Non-African American GFR(CKD) 11 (>60 ml/min/1.73 sqM); Potassium 5.1 mmol/L (3.5-5.1); Sodium 135 mmol/L (137-145); Total Bilirubin 0.7 mg/dL (0.2-1.3); Total Protein 6.3 g/dL (6.3-8.2)
--- NOTE | 2024-08-23 11:39 | P.PN ---
Subjective Progress Note Date: 08/23/24 Principal diagnosis: Hypertensive emergency. This is a 34-year-old female patient with a known history of uncontrolled hypertension, end-stage renal disease requiring hemodialysis 4 times weekly, diabetes mellitus, TIA/CVA, optic neuritis, anemia of chronic disease. She has had multiple admissions for fluid volume overload and hypertensive emergency. She presented here again early this morning with worsening shortness of breath. She states she had dialysis 2 days ago on 08/12/2024. Chest x-ray revealed severe pulmonary edema. She was placed on BiPAP 10/5 and 40% FiO2. She was extremely hypertensive and requiring a nitroglycerin drip currently at 130 mcg/min. White count 18.5. Hemoglobin 12.8. Platelets 443. Sodium 135. Potassium 5.5. Bicarb 23. BUN 53. Creatinine 6.78. Glucose 247. proBNP 96,400. She is seen currently in the emergency department. She remains on BiPAP. She is receiving hemodialysis with a goal of 4 L to be removed today. Patient today on 08/15/2024, she is now in the ICU, undergoing hemodialysis, patient is feeling better. Breathing easier, last night she had to go on BiPAP 10/5/40%, now she is on 2 L nasal cannula, chest x-ray showed dramatic improvement in her pulmonary edema. Remains on Cleviprex at 9 mg/h, patient is on multiple cardiac meds for hypertension, and her blood pressure seems to be quite better controlled at this point. But the plan is to continue tapering the Cleviprex, and once discontinued the patient could be transferred out of the ICU to the cardiac floor. Labs reviewed WBC count is 12.2 hemoglobin is 13.3 basic metabolic profile is normal renal profile showed a BUN of 33 creatinine 5.67 Patient was evaluated today on 08/16/2024, remains in the ICU, remains on hemodialysis, blood pressure seems to be better controlled, patient is maximized on multiple blood pressure medications. Hence considering the patient is off Cleviprex, and she is off nitroglycerin, I will arrange for the patient to transfer sometime later today to a monitored bed on 3 S. In the meantime we will continue blood pressure medications for adequate control of the blood pressure, and continue hemodialysis. WBC count is 8.1 hemoglobin is 14 basic metabolic profile is normal BUN is 21 creatinine 4.86. Bicarb is 25 Patient was evaluated today on 08/17/2024, patient is doing well, on hemodialysis, seems very comfortable, not in any distress, but she intermittently moans and groans. Does not seem to be quite pleased with her overall condition. During my evaluation the patient was having hemodialysis, and did not seem to be in any distress.WBC of 7.8 hemoglobin 14 electrolytes are normal BUN is 24 creatinine 5.19 Reevaluate today on 08/18/2024, patient is doing great, hardly any pulmonary symptoms, however the patient remains extremely quiet, and she has a very dull affect. Very depressed mood.On room air, O2 sats is 100% blood pressure is normal 142/82, patient remains on intermittent hemodialysis. Patient was seen today on 08/19/2024, patient is receiving hemodialysis during my evaluation, her follow-up chest x-ray yesterday showed complete resolution of her pulmonary edema, patient is doing well from the pulmonary perspective hardly any pulmonary symptoms no cough no wheezing no shortness of breath. Patient remains on 2 L nasal cannula but her O2 saturation 100% Seen today on 08/20/2024, patient is doing great, no active pulmonary symptoms, no cough no wheezing no shortness of breath, patient is still receiving hemodialysis pulmonary freed no cough no wheezing no shortness of breath last follow-up chest x-ray showed complete resolution of her fluid overload/pulmonary edema. Progress note dated August 21, 2024. 34-year-old female well-known to our service. The patient is seen today in room 352. When asked how she is feeling, she shakes her head, and says not will well. The patient is not receiving any IV fluids. She continues on oxygen at 2 L. Current labs include a white count of 7.3, hemoglobin 13.1, hematocrit 42.9, and a normal platelet count. Sodium 132, potassium 5.6, chlorides 93, CO2 25, BUN 43, creatinine is 7.79. Glucose is 148. Progress note dated August 22, 2024. 34-year-old female well-known to our service. She is seen today in room 352. She is currently undergoing hemodialysis. She is not receiving any IV fluids. She is on 2 L nasal cannula. She denies any shortness of breath. The plan for hemodialysis is removal of 2 L of fluid. No new labs today. Glucose 103. Progress note dated August 23, 2024. 34-year-old female seen today in room 352. Currently, she is on 2 L of oxygen. Saturations are 100%. She is not receiving any IV fluids. The patient had hemodialysis yesterday. Current laboratory data includes a white count 5.5, h emoglobin 13.5, hematocrit 43.2, and a platelet count of 252,000. Sodium 135, potassium 5.1, chlorides 97, CO2 26, BUN 25, creatinine 4.72. Objective - Vital Signs Vital signs: Vital Signs Temp 97.8 F 08/23/24 10:52 Pulse 84 08/23/24 10:52 Resp 16 08/23/24 10:52 BP 140/85 08/23/24 10:52 Pulse Ox 100 08/23/24 10:52 FiO2 40 08/14/24 11:01 Intake & Output 08/22/24 08/23/24 08/23/24 18:59 06:59 18:59 Intake Total 2758 540 Output Total 2400 Balance 358 540 Weight 65.5 kg Intake: Oral 358 540 Hemodialysis 2400 Output: Hemodialysis 400 Hemodialysis Net Amount 1999 Other: Voiding Method Toilet Toilet Toilet - Exam No acute distress, oriented 3. Currently on 2 L. HEENT examination is grossly unremarkable. Mucous membranes are moist. No oral lesions. Neck supple. Full range of motion. No adenopathy thyromegaly or neck vein distention. Cardiovascular examination reveals regular rhythm rate. S1-S2 normal. No S3 or S4. No discernible murmur noted. Lungs reveal mild bibasilar crackles. No rhonchi or wheezes. Breath sounds are equal. Abdomen soft bowel sounds are heard. No masses or tenderness. Extremities are intact. No cyanosis clubbing or edema. Skin is without rash or lesion. Neurologic examination is brief but nonfocal. - Labs CBC & Chem 7: 08/23/24 07:15 08/23/24 07:15 Labs: Abnormal Lab Results - Last 24 Hours (Table) 08/22/24 08/22/24 08/23/24 Range/Units 16:37 20:16 05:53 MCV (80.0-100.0) fL RDW (11.5-15.5) % Sodium (137-145) mmol/L Chloride (98-107) mmol/L BUN (7-17) mg/dL Creatinine (0.52-1.04) mg/dL POC Glucose (mg/dL) 322 H 251 H 51 L (70-110) mg/dL 08/23/24 08/23/24 08/23/24 Range/Units 06:23 06:43 07:15 MCV 101.7 H (80.0-100.0) fL RDW 17.7 H (11.5-15.5) % Sodium (137-145) mmol/L Chloride (98-107) mmol/L BUN (7-17) mg/dL Creatinine (0.52-1.04) mg/dL POC Glucose (mg/dL) 60 L 68 L (70-110) mg/dL 08/23/24 Range/Units 07:15 MCV (80.0-100.0) fL RDW (11.5-15.5) % Sodium 135 L (137-145) mmol/L Chloride 97 L (98-107) mmol/L BUN 25 H (7-17) mg/dL Creatinine 4.72 H (0.52-1.04) mg/dL POC Glucose (mg/dL) (70-110) mg/dL Assessment and Plan Assessment: Acute hypoxemic respiratory failure secondary to fluid overload/pulmonary edema. Hypertensive urgency/emergency. End-stage renal disease, requiring hemodialysis, 4 times a week. Hyperkalemia. Diabetes mellitus, insulin-dependent. Anemia of chronic disease. History of CVA/TIA. History of optic neuritis. Hypothyroidism. History of depression. Plan: Plan dated August 21, 2024. The patient is seen today in room 352. She continues on oxygen at 2 L. Saturations are adequate. No IV fluids. Labs, x-rays, and all medications are reviewed. The patient's overall prognosis remains guarded. We will continue to follow make recommendations along the way. The patient is well-known to our service, as she has had multiple admissions, for acute pulmonary edema, and acute hypertensive urgency/emergency. Plan dated August 22, 2024. The patient is seen again in room 352. The patient continues on oxygen at 2 L. Saturations are in the mid 90s. The patient is not receiving any IV fluids. Labs, x-rays, and all medications are reviewed. The patient is undergoing hemod ialysis today. The plan is to remove 2 L. Currently she is tolerating dialysis well. We will continue to follow the patient, and make recommendations along the way. Prognosis is certainly guarded, given her multiple admissions. Plan dated August 23, 2024. The patient appears to be doing relatively well. From our perspective, the patient could be considered for possible discharge. She is not receiving any IV fluids. She is on 2 L of oxygen. Saturations are 100%. She is not having any conversational dyspnea or use of accessory muscles. Labs, x-rays, and all medications are reviewed. Prognosis is guarded. Time with Patient: Less than 30
[2024-08-23 11:56] LABS: Glucose,Whole Blood 111 mg/dL (70-110)
[2024-08-23] MEDS: AMPICILLIN-SULBACTAM 3 GM in SODIUM CHLORIDE 0.9% 100 ML IVPB SCH (12:09)
--- NOTE | 2024-08-23 13:01 | P.PN ---
Subjective Progress Note Date: 08/23/24 Patient is a 34-year-old female with a past medical history of ESRD on hemodialysis TTS-currently awaiting renal and pancreas transplant, gastroparesis, diabetic neuropathy, hypothyroidism, diabetes type 2, hypertension, seizure disorder, anxiety/depression and prior history of smoking, marijuana and methamphetamine use. Patient presents to ER with complaints of worsening shortness of breath. Patient had dialysis 2 days ago on 08/12/2024. On admission patient found to be hypertensive emergency with volume overload. Patient was started on nitroglycerin drip and was transferred to MICU. Chest x-ray showed severe pulmonary edema EKG showed sinus tachycardia. Laboratory data showed WBC 18.5 hemoglobin 12.8 and platelets 443 sodium 135 potassium 5.5 chloride 94 bicarb is 23 BUN 53 and creatinine 6.78 blood sugar 247 and lactic acid 2.9 AST 46 ALT 23 and alk phos 165 and troponin 0.042 and proBNP 96,400 08/16/2024 Patient is the MICU. Awake alert and oriented x 3. Currently on 2 L via nasal cannula. Patient is undergoing hemodialysis again today. Patient is off nitro drip and Cleviprex drip. Blood pressure is fairly controlled. Continued on blood pressure medications. Laboratory data showed WBC 8.1 hemoglobin 14.0 platelets 532 sodium 133 potassium 5.3 chloride 93 bicarb is 25 BUN 21 and creatinine 4.86 and blood sugar 213 and calcium 10.3 Nephrology and pulmonary is on board. 08/17/2024 Patient is transferred to medical floor. Complains of migraine headache. No complaints of chest pain or shortness of breath. Patient underwent hemodialysis today. Tolerating well. Blood pressure is high this morning with SBP in 180s. Patient was given all her blood pressure medications requiring oxygen at 2 L via nasal cannula. Laboratory data showed WBC 7.8 hemoglobin 14.0 and platelets 470 sodium 133 potassium 4.9 chloride 93 bicarb is 25 BUN 24 and creatinine 5.19 and blood sugar 225 and calcium 9.8. 08/18/2024 Patient is lying in the bed. Awake alert and oriented x 3. On room air. Complains of headache and generalized body pains. Requesting more pain medications. Otherwise blood pressure is much improved today.. Next hemodialysis session will be tomorrow. Blood sugar went up to 478 before lunch. Continued on insulin sliding scale and is also on Levemir 12 units twice daily. Patient is being continued on Imdur, labetalol, Entresto and hydralazine as well as clonidine. Nephrology is on board. 08/19. Patient seen and examined. B. Vitals this morning temperature 98, heart rate 103, lood work done this morning showed WBC 14, hemoglobin 13.9, sodium 133, potassium 5.6, BUN 43, creatinine 7.5, phosphorus 9.1. Patient is undergoing dialysis today. 08/20. Patient seen and examined. Vital signs this morning temperature 98, heart rate 103, respiration 18 blood pressure 165/100. Complaining of pain in her gums with pussy discharge. Complaining of nausea and vomiting as well 08/21. Patient seen and examined. Continues to have nausea and vomiting. Complaining of swelling of her gums and pain in her left jaw. Ordered CT of the face. 08/22. Patient seen and examined. Complaining of nausea but no vomiting. Currently undergoing dialysis. 08/23. Patient seen and examined.Blood work done showed WBC 5.5, hemoglobin 8.5, sodium 135, potassium 5.1, BUN 25, creatinine 4.72, glucose 111 . Continues to complain of lethargy and weakness. Complaining of poor appetite REVIEW OF SYSTEMS: CONSTITUTIONAL: No fever, no malaise,. CARDIOVASCULAR: No chest pain, no palpitations, no syncope. PULMONARY: No shortness of breath, no cough, GASTROINTESTINAL: No diarrhea, no abdominal pain. NEUROLOGICAL: No headaches, no weakness, PHYSICAL EXAMINATION: GENERAL: The patient is alert and oriented x3, chronically ill looking HEENT: Pupils are round and equally reacting to light. EOMI. No scleral icterus. No conjunctival pallor. Normocephalic, atraumatic. No pharyngeal erythema. No thyromegaly. CARDIOVASCULAR: S1 and S2 present. No murmurs, rubs, or gallops. PULMONARY: Chest is clear to auscultation, no wheezing or crackles. ABDOMEN: Soft, nontender, nondistended, normoactive bowel sounds. No palpable organomegaly. MUSCULOSKELETAL: No joint swelling or deformity. EXTREMITIES: No cyanosis, clubbing, or pedal edema. NEUROLOGICAL: Gross neurological examination did not reveal any focal deficits. SKIN: No rashes. Assessment and plan Acute hypoxic respiratory failure secondary to pulmonary edema and volume overload requiring BiPAP on admission currently titrated down to room air. Hypertensive emergency requiring nitroglycerin drip. Currently off drip. ESRD requiring hemodialysis 4 times per week. Gingivitis Oral tooth infection elevated proBNP level Hyperkalemia improved. Leukocytosis likely reactive. Diabetes type 2 insulin-dependent Hypothyroidism Anemia of chronic disease History of CVA/TIA History of optic neuritis Anxiety/depression History of marijuana use and methamphetamine use Prior history of smoking Monitor vital signs Monitor CBC Monitor CMP Continue aspirin, Lipitor Continue Norvasc, clonidine, hydralazine, labetalol Continue Synthroid CT face did not show any evidence of any abscess. Continue IV Unasyn Continue antiemetics Monitor blood sugar levels, continue current insulin regimen Continue dialysis per nephrology, nephrology recommending 1 more cycle of dialysis before discharge Pulmonary following ID following Labs and medication were reviewed.. Continue same treatment. Continue with symptomatic treatment. Resume home medication. Monitor labs and vitals. DVT and GI prophylaxis. Further recommendations as per clinical course of the patient Dictation was produced using [employer] dictation software. please excuse any grammatical, word or spelling errors. Objective - Vital Signs Vital signs: Vital Signs Temp 97.8 F 08/23/24 10:52 Pulse 84 08/23/24 10:52 Resp 16 08/23/24 10:52 BP 140/85 08/23/24 10:52 Pulse Ox 100 08/23/24 10:52 FiO2 40 08/14/24 11:01 Intake & Output 08/22/24 08/23/24 08/23/24 18:59 06:59 18:59 Intake Total 2758 540 Output Total 2400 Balance 358 540 Weight 65.5 kg Intake: Oral 358 540 Hemodialysis 2400 Output: Hemodialysis 400 Hemodialysis Net Amount 1999 Other: Voiding Method Toilet Toilet Toilet - Labs CBC & Chem 7: 08/23/24 07:15 08/23/24 07:15 Labs: Abnormal Lab Results - Last 24 Hours (Table) 08/22/24 08/22/24 08/23/24 Range/Units 16:37 20:16 05:53 MCV (80.0-100.0) fL RDW (11.5-15.5) % Sodium (137-145) mmol/L Chloride (98-107) mmol/L BUN (7-17) mg/dL Creatinine (0.52-1.04) mg/dL POC Glucose (mg/dL) 322 H 251 H 51 L (70-110) mg/dL 08/23/24 08/23/24 08/23/24 Range/Units 06:23 06:43 07:15 MCV 101.7 H (80.0-100.0) fL RDW 17.7 H (11.5-15.5) % Sodium (137-145) mmol/L Chloride (98-107) mmol/L BUN (7-17) mg/dL Creatinine (0.52-1.04) mg/dL POC Glucose (mg/dL) 60 L 68 L (70-110) mg/dL 08/23/24 08/23/24 Range/Units 07:15 11:55 MCV (80.0-100.0) fL RDW (11.5-15.5) % Sodium 135 L (137-145) mmol/L Chloride 97 L (98-107) mmol/L BUN 25 H (7-17) mg/dL Creatinine 4.72 H (0.52-1.04) mg/dL POC Glucose (mg/dL) 111 H (70-110) mg/dL
--- NOTE | 2024-08-23 15:22 | P.PN ---
Subjective Progress Note Date: 08/23/24 Principal diagnosis: ESRD on hemodialysis Hospital course: 34 year old female with PMH of ESRD with hemodialysis MTTS, diabetes, CHF with EF 55-60% had presented to the ED for shortness of breath on 08/14. 08/24/24 Patient seen today in room 352. She complains of abdominal pain, dental pain, shortness of breath. She mentions having weakness after the hemodialysis yesterday.Denies chest pain. Tolerated 2L of ultrafiltration yesterday. Oral intake is poor. She reports urinating once in a couple days. Labs show Na 135, K 5.1, BUN 25, creatinine 4.72, GFR 11. Objective - Vital Signs Vital signs: Vital Signs Temp 97.8 F 08/23/24 10:52 Pulse 84 08/23/24 10:52 Resp 16 08/23/24 10:52 BP 140/85 08/23/24 10:52 Pulse Ox 100 08/23/24 10:52 FiO2 40 08/14/24 11:01 Intake & Output 08/22/24 08/23/24 08/23/24 18:59 06:59 18:59 Intake Total 2758 540 240 Output Total 2400 Balance 358 540 240 Weight 65.5 kg Intake: Oral 358 540 240 Hemodialysis 2400 Output: Hemodialysis 400 Hemodialysis Net Amount 2000 Other: Voiding Method Toilet Toilet Toilet - Exam General: Mild distress, appears at stated age, normal BMI Derm: warm, dry, intact Head: atraumatic, normocephalic, symmetric Cardiovascular: S1 S2 reg, no murmur, rubs, or gallops Lungs: CTA bilateral, no rhonchi, no rales, no accessory muscle use Abdominal: soft, non-tender to palpataion Extremities: no gross muscle atrophy, no edema, no contractures Neuro: Alert, Oriented - Labs CBC & Chem 7: 08/23/24 07:15 08/23/24 07:15 Labs: Abnormal Lab Results - Last 24 Hours (Table) 08/22/24 08/22/24 08/23/24 Range/Units 16:37 20:16 05:53 MCV (80.0-100.0) fL RDW (11.5-15.5) % Sodium (137-145) mmol/L Chloride (98-107) mmol/L BUN (7-17) mg/dL Creatinine (0.52-1.04) mg/dL POC Glucose (mg/dL) 322 H 251 H 51 L (70-110) mg/dL 08/23/24 08/23/24 08/23/24 Range/Units 06:23 06:43 07:15 MCV 101.7 H (80.0-100.0) fL RDW 17.7 H (11.5-15.5) % Sodium (137-145) mmol/L Chloride (98-107) mmol/L BUN (7-17) mg/dL Creatinine (0.52-1.04) mg/dL POC Glucose (mg/dL) 60 L 68 L (70-110) mg/dL 08/23/24 08/23/24 Range/Units 07:15 11:55 MCV (80.0-100.0) fL RDW (11.5-15.5) % Sodium 135 L (137-145) mmol/L Chloride 97 L (98-107) mmol/L BUN 25 H (7-17) mg/dL Creatinine 4.72 H (0.52-1.04) mg/dL POC Glucose (mg/dL) 111 H (70-110) mg/dL Assessment and Plan Assessment: End-stage renal disease maintained on hemodialysis on Saturdays. Hypertension with chronic kidney disease. Stable. Acute hypoxic respiratory failure secondary to volume overload. Improved. Diabetes mellitus with gastroparesis. Dental abscess maintained on antibiotics. Chronic kidney disease mineral bone disease maintained on phosphate binders. Mild hyperkalemia secondary to chronic kidney disease and Entresto. Improved postdialysis Plan: Hemodialysis tomorrow per schedule Target ultrafiltration 3L, tomorrow Renal diet Monitor BMP I have seen and examined the patient with resident and agree with A&P as written.
[2024-08-23 16:23] LABS: Glucose,Whole Blood 142 mg/dL (70-110)
[2024-08-23 20:06] LABS: Glucose,Whole Blood 261 mg/dL (70-110)
[2024-08-24 04:22] LABS: African American GFR (CKD) 10 (>60 ml/min/1.73 sqM); Anion Gap 12 mmol/L; Blood Urea Nitrogen 38 mg/dL (7-17); Calcium 9.2 mg/dL (8.4-10.2); Carbon Dioxide 21 mmol/L (22-30); Chloride 97 mmol/L (98-107); Glucose 200 mg/dL (74-99); Non-African American GFR(CKD) 8 (>60 ml/min/1.73 sqM); Sodium 130 mmol/L (137-145)
[2024-08-24 07:17] LABS: Glucose,Whole Blood 116 mg/dL (70-110)
--- NOTE | 2024-08-24 09:10 | P.PN ---
Subjective Progress Note Date: 08/23/24 Principal diagnosis: Reason for follow-up is infected teeth Patient is a 34-year-old female with a past medical history significant for diabetes mellitus reflux hypertension seizure disorder end-stage renal disease on hemodialysis presented to hospital for shortness of breath patient was also complaining of pain to the lower jaw area concerning for infected teeth/abscess prompted this consultation. On today's evaluation that is 08/23/2024, Patient is afebrile patient is currently on room air and denies having any shortness of breath, the patient denies any chest pain or cough, the patient still complaining of soreness in the mouth nausea but no vomiting no abdominal pain or diarrhea. Patient did have white count of 5.5 creatinine is 4.72 Objective - Vital Signs Vital signs: Vital Signs Temp 97.8 F 08/23/24 10:52 Pulse 84 08/23/24 10:52 Resp 16 08/23/24 10:52 BP 140/85 08/23/24 10:52 Pulse Ox 100 08/23/24 10:52 FiO2 40 08/14/24 11:01 Intake & Output 08/22/24 08/23/24 08/23/24 18:59 06:59 18:59 Intake Total 2758 540 Output Total 2400 Balance 358 540 Weight 65.5 kg Intake: Oral 358 540 Hemodialysis 2400 Output: Hemodialysis 400 Hemodialysis Net Amount 2000 Other: Voiding Method Toilet Toilet Toilet - Exam GENERAL DESCRIPTION: Middle-age female lying in bed in no distress RESPIRATORY SYSTEM: Unlabored breathing , decreased breath sounds at bases HEART: S1 S2 regular rate and rhythm , ABDOMEN: Soft , no tenderness EXTREMITIES: No edema feet - Labs CBC & Chem 7: 08/23/24 07:15 08/24/24 03:36 Labs: Abnormal Lab Results - Last 24 Hours (Table) 08/22/24 08/22/24 08/23/24 Range/Units 16:37 20:16 05:53 MCV (80.0-100.0) fL RDW (11.5-15.5) % Sodium (137-145) mmol/L Chloride (98-107) mmol/L BUN (7-17) mg/dL Creatinine (0.52-1.04) mg/dL POC Glucose (mg/dL) 322 H 251 H 51 L (70-110) mg/dL 08/23/24 08/23/24 08/23/24 Range/Units 06:23 06:43 07:15 MCV 101.7 H (80.0-100.0) fL RDW 17.7 H (11.5-15.5) % Sodium (137-145) mmol/L Chloride (98-107) mmol/L BUN (7-17) mg/dL Creatinine (0.52-1.04) mg/dL POC Glucose (mg/dL) 60 L 68 L (70-110) mg/dL 08/23/24 08/23/24 Range/Units 07:15 11:55 MCV (80.0-100.0) fL RDW (11.5-15.5) % Sodium 135 L (137-145) mmol/L Chloride 97 L (98-107) mmol/L BUN 25 H (7-17) mg/dL Creatinine 4.72 H (0.52-1.04) mg/dL POC Glucose (mg/dL) 111 H (70-110) mg/dL Assessment and Plan (1) Dental infection Current Visit: Yes Status: Acute Code(s): K04.7 - PERIAPICAL ABSCESS WITHOUT SINUS SNOMED Code(s): 493143092 (2) Infected dental caries Current Visit: Yes Status: Acute Code(s): K02.9 - DENTAL CARIES, UNSPECIFIED; K04.7 - PERIAPICAL ABSCESS WITHOUT SINUS SNOMED Code(s): 42944493 Plan: 1patient is a 34-year female with multiple comorbidity including end- stage renal disease on dialysis presented to hospital with shortness of breath and also complaining of lower jaw dental pain concerning for dental caries possible abscess less likely but not excluded and will need to cover for the polymicrobial oral awa. 2 CT of the face did not show any evidence of abscess 3patient to continue with IV Unasyn while inpatient and a short course of Augmentin on discharge discussed with admitting physician Dictation was produced using [employer] dictation software. please excuse any grammatical, word or spelling errors. Time with Patient: Less than 30
--- NOTE | 2024-08-24 09:46 | P.DS ---
Providers Date of admission: 08/14/24 06:16 Expected date of discharge: 08/24/24 Attending physician: Jamal Glasgow MD Consults: 08/14/24 06:16 Consult Physician Routine Consulting Provider: Gary Andrade Consult Reason/Comments: Dialysis patient, fluid overload Do you want consulting provider notified?: Already Contacted 08/14/24 06:53 Consult Physician Routine Consulting Provider: Jamal Seay Consult Reason/Comments: PULMONARY EDEMA Do you want consulting provider notified?: Already Contacted 08/21/24 10:47 Consult Physician Routine Consulting Provider: Marianna Rm Consult Reason/Comments: tooth abscess/ facial swelling Do you want consulting provider notified?: Yes Primary care physician: Physician Nonstaff Hospital Course: Discharge diagnoses; Acute hypoxic respiratory failure secondary to pulmonary edema and volume overload requiring BiPAP on admission currently titrated down to room air. Hypertensive emergency requiring nitroglycerin drip. Currently off drip. ESRD requiring hemodialysis 4 times per week. Gingivitis Oral tooth infection elevated proBNP level Hyperkalemia improved. Leukocytosis likely reactive. Diabetes type 2 insulin-dependent Hypothyroidism Anemia of chronic disease History of CVA/TIA History of optic neuritis Anxiety/depression History of marijuana use and methamphetamine use Prior history of smoking Hospital course; Patient is a 34-year-old female with a past medical history of ESRD on hemodialysis TTS-currently awaiting renal and pancreas transplant, gastroparesis, diabetic neuropathy, hypothyroidism, diabetes type 2, hypertension, seizure disorder, anxiety/depression and prior history of smoking, marijuana and methamphetamine use. Patient presents to ER with complaints of worsening shortness of breath. Patient had dialysis 2 days ago on 08/12/2024. On admission patient found to be hypertensive emergency with volume overload. Patient was started on nitroglycerin drip and was transferred to MICU. Chest x-ray showed severe pulmonary edema EKG showed sinus tachycardia. Laboratory data showed WBC 18.5 hemoglobin 12.8 and platelets 443 sodium 135 potassium 5.5 chloride 94 bicarb is 23 BUN 53 and creatinine 6.78 blood sugar 247 and lactic acid 2.9 AST 46 ALT 23 and alk phos 165 and troponin 0.042 and proBNP 96,400 08/16/2024 Patient is the MICU. Awake alert and oriented x 3. Currently on 2 L via nasal cannula. Patient is undergoing hemodialysis again today. Patient is off nitro drip and Cleviprex drip. Blood pressure is fairly controlled. Continued on blood pressure medications. Laboratory data showed WBC 8.1 hemoglobin 14.0 platelets 532 sodium 133 potassium 5.3 chloride 93 bicarb is 25 BUN 21 and creatinine 4.86 and blood sugar 213 and calcium 10.3 Nephrology and pulmonary is on board. 08/17/2024 Patient is transferred to medical floor. Complains of migraine headache. No complaints of chest pain or shortness of breath. Patient underwent hemodialysis today. Tolerating well. Blood pressure is high this morning with SBP in 180s. Patient was given all her blood pressure medications requiring oxygen at 2 L via nasal cannula. Laboratory data showed WBC 7.8 hemoglobin 14.0 and platelets 470 sodium 133 potassium 4.9 chloride 93 bicarb is 25 BUN 24 and creatinine 5.19 and blood sugar 225 and calcium 9.8. 08/18/2024 Patient is lying in the bed. Awake alert and oriented x 3. On room air. Complains of headache and generalized body pains. Requesting more pain medications. Otherwise blood pressure is much improved today.. Next hemodialysis session will be tomorrow. Blood sugar went up to 478 before lunch. Continued on insulin sliding scale and is also on Levemir 12 units twice daily. Patient is being continued on Imdur, labetalol, Entresto and hydralazine as well as clonidine. Nephrology is on board. 08/19. Patient seen and examined. B. Vitals this morning temperature 98, heart rate 103, lood work done this morning showed WBC 14, hemoglobin 13.9, sodium 133, potassium 5.6, BUN 43, creatinine 7.5, phosphorus 9.1. Patient is undergoing dialysis today. 08/20. Patient seen and examined. Vital signs this morning temperature 98, heart rate 103, respiration 18 blood pressure 165/100. Complaining of pain in her gums with pussy discharge. Complaining of nausea and vomiting as well 08/21. Patient seen and examined. Continues to have nausea and vomiting. Complaining of swelling of her gums and pain in her left jaw. Ordered CT of the face. 08/22. Patient seen and examined. Complaining of nausea but no vomiting. Currently undergoing dialysis. 08/23. Patient seen and examined.Blood work done showed WBC 5.5, hemoglobin 8.5, sodium 135, potassium 5.1, BUN 25, creatinine 4.72, glucose 111 . Continues to complain of lethargy and weakness. Complaining of poor appetite 08/24. Patient seen and examined. Blood pressure has improved. Patient undergoing dialysis today. Being discharged on Augmentin for 5 days. Outpatient follow-up with PCP PHYSICAL EXAMINATION: GENERAL: The patient is alert and oriented x3, not in any acute distress. Well developed, well nourished. HEENT: Pupils are round and equally reacting to light. EOMI. No scleral icterus. No conjunctival pallor. Normocephalic, atraumatic. No pharyngeal erythema. No thyromegaly. CARDIOVASCULAR: S1 and S2 present. No murmurs, rubs, or gallops. PULMONARY: Chest is clear to auscultation, no wheezing or crackles. ABDOMEN: Soft, nontender, nondistended, normoactive bowel sounds. No palpable organomegaly. MUSCULOSKELETAL: No joint swelling or deformity. EXTREMITIES: No cyanosis, clubbing, or pedal edema. NEUROLOGICAL: Gross neurological examination did not reveal any focal deficits. SKIN: No rashes. Dictation was produced using [employer] dictation software. please excuse any grammatical, word or spelling errors. Patient Condition at Discharge: Good Plan - Discharge Summary Discharge Rx Participant: Yes New Discharge Prescriptions: New Sacubitril/Valsartan [Entresto 49 mg-51 mg Tablet] 1 each PO BID 30 Days #60 tab Labetalol [Trandate] 200 mg PO BID 30 Days #60 tab amLODIPine [Norvasc] 10 mg PO DAILY 30 Days #30 tab Continue bisacodyL [Dulcolax] 10 mg RECTAL DAILY PRN PRN Reason: Constipation Magnesium Hydroxide [Milk of Magnesia Concentrate] 7,200 mg PO DAILY PRN PRN Reason: Constipation Lidocaine 4% Patch 1 patch TOPICAL DAILY@0800 Ipratropium-Albuterol Nebulize [Duoneb 0.5 mg-3 mg/3 ml Soln] 3 ml INHALATION RT-TID PRN each PRN Reason: Shortness Of Breath Or Wheezing Biotene Dry Mouth/Throat 10 ml PO BID PRN PRN Reason: DRY MOUTH/THROAT Acetaminophen [Tylenol] 650 mg PO Q4H PRN PRN Reason: Pain Or Fever > 100.5 Darbepoetin Artur [Aranesp] 40 mcg SQ MO Loratadine [Claritin] 5 mg PO DAILY tab INSULIN ASPART (NovoLOG) [NovoLOG (formulary)] See Protocol SQ ACHS Insulin Glargine [Lantus Vial] 12 unit SQ BID #1 each Ondansetron [Zofran] 4 mg PO Q8HR PRN #20 tab PRN Reason: Nausea And Vomiting [place] Caps 1 cap PO DIRECTED cloNIDine HCL [Catapres] 0.3 mg PO DIRECTED Folic Acid-Vit B Complex-Vit C [Nephrocaps] 1 cap PO DIRECTED methocarbamoL [Robaxin-750] 750 mg PO DIRECTED Sertraline [Zoloft] 200 mg PO DIRECTED Docusate [Colace] 100 mg PO DAILY@0800 polyethylene glycoL 3350 [Miralax] 17 gm PO AC-LUNCH #527 gm Melatonin 1 mg PO HS tab Butalb/APAP/Caff 50-325-40Mg [Fioricet 50-325-40] 1 tab PO Q4HR PRN PRN Reason: Headache Aspirin 81 mg PO DAILY@0800 #30 tab Famotidine [Pepcid] 20 mg PO BID #60 tab Sevelamer [Renvela] 800 mg PO HS #30 tab ALPRAZolam [Xanax] 0.25 mg PO DIRECTED PRN PRN Reason: Anxiety Atorvastatin [Lipitor] 40 mg PO DIRECTED Divalproex ER [Depakote ER] 500 mg PO DIRECTED hydrALAZINE HCL [Apresoline] 150 mg PO DIRECTED HYDROcodone/APAP 7.5-325MG [[place] 7.5-325] 1 tab PO DIRECTED PRN PRN Reason: Pain Levothyroxine Sodium [Synthroid] 175 mcg PO DIRECTED Metoclopramide [Reglan] 5 mg PO DIRECTED PRN PRN Reason: Nausea Pantoprazole [Protonix] 40 mg PO DIRECTED Sevelamer [Renvela] 1,600 mg PO DIRECTED traZODone HCL [Desyrel] 50 mg PO DIRECTED Changed Isosorbide Mononitrate ER [Imdur] 30 mg PO DIRECTED 30 Days #30 tab Discontinued NIFEdipine XL [Procardia XL] 60 mg PO BID@0800,1700 #60 tab Sacubitril/Valsartan [Entresto 49 mg-51 mg Tablet] 1 tab PO DIRECTED Labetalol [Trandate] 200 mg PO DIRECTED Discharge Medication List Docusate [Colace] 100 mg PO DAILY@0800 02/05/24 [History] Lidocaine 4% Patch 1 patch TOPICAL DAILY@0800 02/05/24 [History] Magnesium Hydroxide [Milk of Magnesia Concentrate] 7,200 mg PO DAILY PRN 02/05/24 [History] bisacodyL [Dulcolax] 10 mg RECTAL DAILY PRN 02/05/24 [History] Ipratropium-Albuterol Nebulize [Duoneb 0.5 mg-3 mg/3 ml Soln] 3 ml INHALATION RT-TID PRN each 02/14/24 [Rx] polyethylene glycoL 3350 [Miralax] 17 gm PO AC-LUNCH #527 gm 02/14/24 [Rx] Acetaminophen [Tylenol] 650 mg PO Q4H PRN 02/18/24 [History] Biotene Dry Mouth/Throat 10 ml PO BID PRN 02/18/24 [History] Melatonin 1 mg PO HS tab 02/25/24 [Rx] Butalb/APAP/Caff 50-325-40Mg [Fioricet 50-325-40] 1 tab PO Q4HR PRN 03/14/24 [History] Darbepoetin Artur [Aranesp] 40 mcg SQ MO 03/14/24 [History] Loratadine [Claritin] 5 mg PO DAILY tab 03/30/24 [Rx] INSULIN ASPART (NovoLOG) [NovoLOG (formulary)] See Protocol SQ ACHS 04/16/24 [History] Aspirin 81 mg PO DAILY@0800 #30 tab 05/18/24 [Rx] Famotidine [Pepcid] 20 mg PO BID #60 tab 07/11/24 [Rx] Insulin Glargine [Lantus Vial] 12 unit SQ BID #1 each 07/11/24 [Rx] Ondansetron [Zofran] 4 mg PO Q8HR PRN #20 tab 07/11/24 [Rx] Sevelamer [Renvela] 800 mg PO HS #30 tab 07/11/24 [Rx] ALPRAZolam [Xanax] 0.25 mg PO DIRECTED PRN 08/14/24 [History] Atorvastatin [Lipitor] 40 mg PO DIRECTED 08/14/24 [History] Divalproex ER [Depakote ER] 500 mg PO DIRECTED 08/14/24 [History] Folic Acid-Vit B Complex-Vit C [Nephrocaps] 1 cap PO DIRECTED 08/14/24 [History] HYDROcodone/APAP 7.5-325MG [[place] 7.5-325] 1 tab PO DIRECTED PRN 08/14/24 [History] Levothyroxine Sodium [Synthroid] 175 mcg PO DIRECTED 08/14/24 [History] Metoclopramide [Reglan] 5 mg PO DIRECTED PRN 08/14/24 [History] Pantoprazole [Protonix] 40 mg PO DIRECTED 08/14/24 [History] [place] Caps 1 cap PO DIRECTED 08/14/24 [History] Sertraline [Zoloft] 200 mg PO DIRECTED 08/14/24 [History] Sevelamer [Renvela] 1,600 mg PO DIRECTED 08/14/24 [History] cloNIDine HCL [Catapres] 0.3 mg PO DIRECTED 08/14/24 [History] hydrALAZINE HCL [Apresoline] 150 mg PO DIRECTED 08/14/24 [History] methocarbamoL [Robaxin-750] 750 mg PO DIRECTED 08/14/24 [History] traZODone HCL [Desyrel] 50 mg PO DIRECTED 08/14/24 [History] Isosorbide Mononitrate ER [Imdur] 30 mg PO DIRECTED 30 Days #30 tab 08/24/24 [Rx] Labetalol [Trandate] 200 mg PO BID 30 Days #60 tab 08/24/24 [Rx] Sacubitril/Valsartan [Entresto 49 mg-51 mg Tablet] 1 each PO BID 30 Days #60 tab 08/24/24 [Rx] amLODIPine [Norvasc] 10 mg PO DAILY 30 Days #30 tab 08/24/24 [Rx] Follow up Appointment(s)/Referral(s): Nonstaff,Physician [Primary Care Provider] - 1-2 days Charlene Lim MD [STAFF PHYSICIAN] - 1 Week Discharge Disposition: HOME SELF-CARE
--- NOTE | 2024-08-24 12:19 | P.PN ---
Subjective Progress Note Date: 08/24/24 Principal diagnosis: ESRD on hemodialysis Hospital course: 34 year old female with PMH of ESRD with hemodialysis MTTS, diabetes, CHF with EF 55-60% had presented to the ED for shortness of breath on 08/14. 08/23/24 Patient seen today in room 352. She complains of abdominal pain, dental pain, shortness of breath. She mentions having weakness after the hemodialysis yesterday.Denies chest pain. Tolerated 2L of ultrafiltration yesterday. Oral intake is poor. She reports urinating once in a couple days. Labs show Na 135, K 5.1, BUN 25, creatinine 4.72, GFR 11. 08/24/24 Patient evaluated today. She is currently on hemodialysis. Still complains of abdominal pain. Denies shortness of breath and weakness. Labs show Na 130, K 5.0, BUN 38, creatinine 6.10, GFR 8. Objective - Vital Signs Vital signs: Vital Signs Temp 97.8 F 08/24/24 07:12 Pulse 82 08/24/24 07:12 Resp 16 08/24/24 07:12 BP 167/85 08/24/24 07:12 Pulse Ox 98 08/24/24 07:12 FiO2 40 08/14/24 11:01 Intake & Output 08/23/24 08/24/24 08/24/24 18:59 06:59 18:59 Intake Total 720 240 Balance 720 240 Intake: Oral 720 240 Other: Voiding Method Toilet Toilet Toilet # Voids 3 - Exam General: No acute distress, appears at stated age, normal BMI Derm: warm, dry, intact Cardiovascular: S1 S2 reg, no murmur Lungs: CTA bilateral, no rhonchi, no rales, no accessory muscle use Extremities: no gross muscle atrophy, no edema Neuro: Alert, Oriented - Labs CBC & Chem 7: 08/23/24 07:15 08/24/24 03:36 Labs: Abnormal Lab Results - Last 24 Hours (Table) 08/23/24 08/23/24 08/23/24 Range/Units 11:55 16:21 20:05 Sodium (137-145) mmol/L Chloride (98-107) mmol/L Carbon Dioxide (22-30) mmol/L BUN (7-17) mg/dL Creatinine (0.52-1.04) mg/dL Glucose (74-99) mg/dL POC Glucose (mg/dL) 111 H 142 H 261 H (70-110) mg/dL 08/24/24 08/24/24 Range/Units 03:36 07:16 Sodium 130 L (137-145) mmol/L Chloride 97 L (98-107) mmol/L Carbon Dioxide 21 L (22-30) mmol/L BUN 38 H (7-17) mg/dL Creatinine 6.10 H (0.52-1.04) mg/dL Glucose 200 H (74-99) mg/dL POC Glucose (mg/dL) 116 H (70-110) mg/dL Assessment and Plan Assessment: End-stage renal disease maintained on hemodialysis on Saturdays. Hypertension with chronic kidney disease. Stable. Acute hypoxic respiratory failure secondary to volume overload. Improved. Diabetes mellitus with gastroparesis. Dental abscess maintained on antibiotics. Chronic kidney disease mineral bone disease maintained on phosphate binders. Mild hyperkalemia secondary to chronic kidney disease and Entresto. Improved postdialysis Plan: Patient currently on Hemodialysis. Target ultrafiltration 3L Renal diet I have seen and examined the patient with resident and agree with A&P as written. PO abx up on d/c per ID.
--- NOTE | 2024-08-24 12:31 | P.PN ---
Subjective Progress Note Date: 08/24/24 This is a 34-year-old female patient with a known history of uncontrolled hypertension, end-stage renal disease requiring hemodialysis 4 times weekly, diabetes mellitus, TIA/CVA, optic neuritis, anemia of chronic disease. She has had multiple admissions for fluid volume overload and hypertensive emergency. She presented here again early this morning with worsening shortness of breath. She states she had dialysis 2 days ago on 08/12/2024. Chest x-ray revealed severe pulmonary edema. She was placed on BiPAP 10/5 and 40% FiO2. She was extremely hypertensive and requiring a nitroglycerin drip currently at 130 mcg/min. White count 18.5. Hemoglobin 12.8. Platelets 443. Sodium 135. Potassium 5.5. Bicarb 23. BUN 53. Creatinine 6.78. Glucose 247. proBNP 96,400. She is seen currently in the emergency department. She remains on BiPAP. She is receiving hemodialysis with a goal of 4 L to be removed today. Patient today on 08/15/2024, she is now in the ICU, undergoing hemodialysis, patient is feeling better. Breathing easier, last night she had to go on BiPAP 10/5/40%, now she is on 2 L nasal cannula, chest x-ray showed dramatic improvement in her pulmonary edema. Remains on Cleviprex at 9 mg/h, patient is on multiple cardiac meds for hypertension, and her blood pressure seems to be quite better controlled at this point. But the plan is to continue tapering the Cleviprex, and once discontinued the patient could be transferred out of the ICU to the cardiac floor. Labs reviewed WBC count is 12.2 hemoglobin is 13.3 basic metabolic profile is normal renal profile showed a BUN of 33 creatinine 5.67 Patient was evaluated today on 08/16/2024, remains in the ICU, remains on hem odialysis, blood pressure seems to be better controlled, patient is maximized on multiple blood pressure medications. Hence considering the patient is off Cleviprex, and she is off nitroglycerin, I will arrange for the patient to transfer sometime later today to a monitored bed on 3 S. In the meantime we will continue blood pressure medications for adequate control of the blood pressure, and continue hemodialysis. WBC count is 8.1 hemoglobin is 14 basic metabolic profile is normal BUN is 21 creatinine 4.86. Bicarb is 25 Patient was evaluated today on 08/17/2024, patient is doing well, on h emodialysis, seems very comfortable, not in any distress, but she intermittently moans and groans. Does not seem to be quite pleased with her overall condition. During my evaluation the patient was having hemodialysis, and did not seem to be in any distress.WBC of 7.8 hemoglobin 14 electrolytes are normal BUN is 24 creatinine 5.19 Reevaluate today on 08/18/2024, patient is doing great, hardly any pulmonary symptoms, however the patient remains extremely quiet, and she has a very dull affect. Very depressed mood.On room air, O2 sats is 100% blood pressure is normal 142/82, patient remains on intermittent hemodialysis. Patient was seen today on 08/19/2024, patient is receiving hemodialysis during my evaluation, her follow-up chest x-ray yesterday showed complete resolution of her pulmonary edema, patient is doing well from the pulmonary perspective hardly any pulmonary symptoms no cough no wheezing no shortness of breath. Patient remains on 2 L nasal cannula but her O2 saturation 100% Seen today on 08/20/2024, patient is doing great, no active pulmonary symptoms, no cough no wheezing no shortness of breath, patient is still receiving hemodialysis pulmonary freed no cough no wheezing no shortness of breath last follow-up chest x-ray showed complete resolution of her fluid overload/pulmonary edema. Progress note dated August 21, 2024. 34-year-old female well-known to our service. The patient is seen today in room 352. When asked how she is feeling, she shakes her head, and says not will well. The patient is not receiving any IV fluids. She continues on oxygen at 2 L. Current labs include a white count of 7.3, hemoglobin 13.1, hematocrit 42.9, and a normal platelet count. Sodium 132, potassium 5.6, chlorides 93, CO2 25, BUN 43, creatinine is 7.79. Glucose is 148. Progress note dated August 22, 2024. 34-year-old female well-known to our service. She is seen today in room 352. She is currently undergoing hemodialysis. She is not receiving any IV fluids. She is on 2 L nasal cannula. She denies any shortness of breath. The plan for hemodialysis is removal of 2 L of fluid. No new labs today. Glucose 103. Progress note dated August 23, 2024. 34-year-old female seen today in room 352. Currently, she is on 2 L of oxygen. Saturations are 100%. She is not receiving any IV fluids. The patient had hemodialysis yesterday. Current laboratory data includes a white count 5.5, hemoglobin 13.5, hematocrit 43.2, and a platelet count of 252,000. Sodium 135, potassium 5.1, chlorides 97, CO2 26, BUN 25, creatinine 4.72. The patient is seen today August 24, 2024 in follow-up on the regular medical floor. She is currently sitting up in bed. Awake and alert in no acute distress. Maintaining O2 saturations in the 90s on room air. No IV fluids. No complaints of shortness of breath, cough or congestion. The plan is for hemodialysis today and then possible discharge. Sodium 130. Potassium 5.0. Bicarb 21. BUN 38. Creatinine 6.1. Glucose 200. She remains on bronchodilators. Heparin for DVT prophylaxis. Objective - Vital Signs Vital signs: Vital Signs Temp 97.8 F 08/24/24 07:12 Pulse 82 08/24/24 07:12 Resp 16 08/24/24 07:12 BP 167/85 08/24/24 07:12 Pulse Ox 98 08/24/24 07:12 FiO2 40 08/14/24 11:01 Intake & Output 08/23/24 08/24/24 08/24/24 18:59 06:59 18:59 Intake Total 720 240 Balance 720 240 Intake: Oral 720 240 Other: Voiding Method Toilet Toilet Toilet # Voids 3 - Exam GENERAL EXAM: Alert, 34-year-old female, on room air, comfortable in no apparent distress. HEAD: Normocephalic. EYES: Normal reaction of pupils, equal size. NOSE: Clear with pink turbinates. THROAT: No erythema or exudates. NECK: No masses, no JVD. CHEST: No chest wall deformity. Right sided hemodialysis catheter in place LUNGS: Equal air entry with crackles in the bilateral bases. CVS: S1 and S2 normal with no audible murmur, regular rhythm. ABDOMEN: No hepatosplenomegaly, normal bowel sounds, no guarding or rigidity. SPINE: No scoliosis or deformity SKIN: No rashes CENTRAL NERVOUS SYSTEM: No focal deficits, tone is normal in all 4 extremities. EXTREMITIES: There is no peripheral edema. No clubbing, no cyanosis. Peripheral pulses are intact. - Labs CBC & Chem 7: 08/23/24 07:15 08/24/24 03:36 Labs: Abnormal Lab Results - Last 24 Hours (Table) 08/23/24 08/23/24 08/24/24 Range/Units 16:21 20:05 03:36 Sodium 130 L (137-145) mmol/L Chloride 97 L (98-107) mmol/L Carbon Dioxide 21 L (22-30) mmol/L BUN 38 H (7-17) mg/dL Creatinine 6.10 H (0.52-1.04) mg/dL Glucose 200 H (74-99) mg/dL POC Glucose (mg/dL) 142 H 261 H (70-110) mg/dL 08/24/24 Range/Units 07:16 Sodium (137-145) mmol/L Chloride (98-107) mmol/L Carbon Dioxide (22-30) mmol/L BUN (7-17) mg/dL Creatinine (0.52-1.04) mg/dL Glucose (74-99) mg/dL POC Glucose (mg/dL) 116 H (70-110) mg/dL Assessment and Plan Assessment: Acute hypoxemic respiratory failure secondary to an acute episode of pulmonary edema and fluid volume overload currently requiring BiPAP support. Recovered and on room air Hypertensive urgency, recovered End-stage renal disease requiring hemodialysis 4 times per week Hyperkalemia secondary to above Diabetes mellitus, insulin-dependent Anemia of chronic disease History of CVA/TIA History of optic neuritis Hypothyroidism History of depression Plan: The patient was seen and evaluated Labs and medications reviewed Plan is for hemodialysis again today Stable and on room air Cleared for discharge This patient was seen independently by the pulmonary nurse practitioner addressing pulmonary issues I have personally seen and examined the patient, performed the documentation and the assessment and plan as written. Number of minutes spent on the visit: 24.
[2024-08-24 12:47] LABS: Glucose,Whole Blood 82 mg/dL (70-110)
[2024-08-24 13:30] VITALS: BP 151/89; PULSE 89; RESP 20; TEMP 98.5
--- NOTE | 2024-08-24 14:23 | P.PN ---
Subjective Progress Note Date: 08/24/24 Principal diagnosis: Reason for follow-up is infected teeth Patient is a 34-year-old female with a past medical history significant for diabetes mellitus reflux hypertension seizure disorder end-stage renal disease on hemodialysis presented to hospital for shortness of breath patient was also complaining of pain to the lower jaw area concerning for infected teeth/abscess prompted this consultation. On today's evaluation that is 08/24/2024, patient has been afebrile, patient is breathing comfortably and is currently on room air, patient denies having any significant cough no chest pain, patient has been complaining some nausea but no difficulty swallowing abdominal pain or diarrhea. Patient creatinine 6.10 Objective - Vital Signs Vital signs: Vital Signs Temp 98.5 F 08/24/24 13:00 Pulse 89 08/24/24 13:00 Resp 20 08/24/24 13:00 BP 151/89 08/24/24 13:00 Pulse Ox 99 08/24/24 12:45 FiO2 40 08/14/24 11:01 Intake & Output 08/23/24 08/24/24 08/24/24 18:59 06:59 18:59 Intake Total 720 640 Output Total 6400 Balance 720 -5760 Intake: Oral 720 240 Hemodialysis 400 Output: Hemodialysis 3400 Hemodialysis Net Amount 3000 Other: Voiding Method Toilet Toilet Toilet # Voids 3 - Exam GENERAL DESCRIPTION: Middle-age female lying in bed in no distress RESPIRATORY SYSTEM: Unlabored breathing , decreased breath sounds at bases HEART: S1 S2 regular rate and rhythm , ABDOMEN: Soft , no tenderness EXTREMITIES: No edema feet - Labs CBC & Chem 7: 08/23/24 07:15 08/24/24 03:36 Labs: Abnormal Lab Results - Last 24 Hours (Table) 08/23/24 08/23/24 08/24/24 Range/Units 16:21 20:05 03:36 Sodium 130 L (137-145) mmol/L Chloride 97 L (98-107) mmol/L Carbon Dioxide 21 L (22-30) mmol/L BUN 38 H (7-17) mg/dL Creatinine 6.10 H (0.52-1.04) mg/dL Glucose 200 H (74-99) mg/dL POC Glucose (mg/dL) 142 H 261 H (70-110) mg/dL 10/10/24 Range/Units 07:16 Sodium (137-145) mmol/L Chloride (98-107) mmol/L Carbon Dioxide (22-30) mmol/L BUN (7-17) mg/dL Creatinine (0.52-1.04) mg/dL Glucose (74-99) mg/dL POC Glucose (mg/dL) 116 H (70-110) mg/dL Assessment and Plan (1) Dental infection Status: Acute Code(s): K04.7 - PERIAPICAL ABSCESS WITHOUT SINUS SNOMED Code(s): 222127871 (2) Infected dental caries Status: Acute Code(s): K02.9 - DENTAL CARIES, UNSPECIFIED; K04.7 - PERIAPICAL ABSCESS WITHOUT SINUS SNOMED Code(s): 58021694 Plan: 1patient is a 34-year female with multiple comorbidity including end- stage renal disease on dialysis presented to hospital with shortness of breath and also complaining of lower jaw dental pain concerning for dental caries possible abscess less likely but not excluded and will need to cover for the polymicrobial oral awa. 2 CT of the face did not show any evidence of abscess 3patient remains to be afebrile some improvement in her lower chest syndrome finishing therapy with oral Augmentin x 7 to 10 days Dictation was produced using [employer] dictation software. please excuse any grammatical, word or spelling errors. Time with Patient: Less than 30
== END 2024-08-24 13:52 | disposition home or self-care (01) | DRG 199 ==
LOC: EC 04:39 → 3SCARD 06:16 → 2SICU 18:42 → 3SCARD 08-16 18:03 → 5NMEDONC 08-24 00:57
PROVIDERS: ADMIT Internal Medicine; ATTEND Internal Medicine
PROC: 5A09357 Assistance with Respiratory Ventilation, Less than 24 Consecutive Hours, Continuous Positive Airway Pressure (ICD-10-PCS; principal; 2024-08-14)
PROC: 5A1D70Z Performance of Urinary Filtration, Intermittent, Less than 6 Hours Per Day (ICD-10-PCS; 2024-08-17)
DX: I16.1 Hypertensive emergency (principal); I13.2 Hypertensive heart and chronic kidney disease with heart failure and with stage 5 chronic kidney disease, or end stage renal disease; N18.6 End stage renal disease; J96.01 Acute respiratory failure with hypoxia; I50.9 Heart failure, unspecified; K04.7 Periapical abscess without sinus; K05.10 Chronic gingivitis, plaque induced; D63.1 Anemia in chronic kidney disease; D72.829 Elevated white blood cell count, unspecified; F32.A Depression, unspecified; E03.9 Hypothyroidism, unspecified; E11.22 Type 2 diabetes mellitus with diabetic chronic kidney disease; E11.319 Type 2 diabetes mellitus with unspecified diabetic retinopathy without macular edema; E83.9 Disorder of mineral metabolism, unspecified; E11.43 Type 2 diabetes mellitus with diabetic autonomic (poly)neuropathy; Z99.2 Dependence on renal dialysis; G40.909 Epilepsy, unspecified, not intractable, without status epilepticus; E87.5 Hyperkalemia; E87.6 Hypokalemia; H46.9 Unspecified optic neuritis; F41.9 Anxiety disorder, unspecified; G43.909 Migraine, unspecified, not intractable, without status migrainosus; K02.9 Dental caries, unspecified; K31.84 Gastroparesis; Z79.4 Long term (current) use of insulin; Z79.82 Long term (current) use of aspirin; Z79.890 Hormone replacement therapy; Z79.899 Other long term (current) drug therapy; Z86.73 Personal history of transient ischemic attack (TIA), and cerebral infarction without residual deficits; Z87.891 Personal history of nicotine dependence; Z88.6 Allergy status to analgesic agent; Z88.5 Allergy status to narcotic agent
CPT/HCPCS: 36415; 70486; 71045; 80048; 80053; 83605; 83880; 84100; 84484; 85025; 85610; 85730; 90935; 93005; 94660; 94760; 96365; 96366; 96375; 96376; 99291

== ENCOUNTER 2024-09-04 01:52 | Inpatient (IN) | payer MEDICARE, OTHER ==
[2024-09-04] MEDS: NITROGLYCERIN-D5W PMX 50 MG in DEXTROSE/WATER 1 250ML.BAG IV ONE (02:07)
[2024-09-04] MEDS: SODIUM CHLORIDE 0.9% 1,000 ML IV STA (02:08)
[2024-09-04] MEDS: FUROSEMIDE 10 MG/ML 4 ML VIAL IV STA (02:12)
--- NOTE | 2024-09-04 02:18 | XR ---
EXAMINATION TYPE: XR chest 1V portable DATE OF EXAM: 09/04/2024 COMPARISON: Chest x-ray August 18, 2024 HISTORY: Dyspnea. TECHNIQUE: Single frontal view of the chest is obtained. FINDINGS: Stable right-sided internal jugular large bore catheter. More prominent cardiomegaly and m ild to moderate interstitial edema on current study. Suspect small to tiny bilateral pleural effusion s on current study. The osseous structures are intact. IMPRESSION: Findings are consistent with CHF exacerbation/fluid overload state. [facility], , 09/04/2024 2:16 AM
[2024-09-04] MEDS: MORPHINE SULFATE 4 MG/ML SYRINGE IV STA ×3 (02:26→05:32)
[2024-09-04 02:30] LABS: INR 1.1 (<1.2); Partial Thromboplastin Time 27.3 sec (22.0-30.0); Prothrombin Time 11.5 sec (10.0-12.5)
[2024-09-04 02:35] LABS: ALT 196 U/L (4-34); African American GFR (CKD) 7 (>60 ml/min/1.73 sqM); Albumin 4.5 g/dL (3.5-5.0); Anion Gap 11 mmol/L; Blood Urea Nitrogen 74 mg/dL (7-17); Calcium 8.2 mg/dL (8.4-10.2); Carbon Dioxide 25 mmol/L (22-30); Chloride 98 mmol/L (98-107); Glucose 86 mg/dL (74-99); Non-African American GFR(CKD) 6 (>60 ml/min/1.73 sqM); Sodium 134 mmol/L (137-145); Total Protein 6.9 g/dL (6.3-8.2)
[2024-09-04 02:36] LABS: AST 147 U/L (14-36); Alkaline Phosphatase 138 U/L (38-126); Potassium 6.2 mmol/L (3.5-5.1)
[2024-09-04 02:40] LABS: Anisocytosis Slight; Basophils # (A) 0.1 k/uL (0-0.2); Basophils % (A) 1 %; Eosinophils # (A) 0.5 k/uL (0-0.7); Eosinophils % (A) 6 %; HGB 10.7 gm/dL (11.4-16.0); Lymphocytes # (A) 1.3 k/uL (1.0-4.8); Lymphocytes % (A) 14 %; MCH 30.5 pg (25.0-35.0); MCHC 31.5 g/dL (31.0-37.0); MCV 96.9 fL (80.0-100.0); Macrocytosis Slight; Mean Platelet Volume 7.8; Monocytes # (A) 0.4 k/uL (0-1.0); Monocytes % (A) 4 %; Neutrophils # (A) 6.8 k/uL (1.3-7.7); Neutrophils % (A) 74 %; Platelet Count 374 k/uL (150-450); RBC 3.51 m/uL (3.80-5.40); RDW 17.2 % (11.5-15.5); WBC 9.2 k/uL (3.8-10.6)
--- NOTE | 2024-09-04 03:03 | ED ---
SOB HPI - General Chief Complaint: Shortness of Breath Stated Complaint: WAQAR Time Seen by Provider: 09/04/24 01:59 Source: EMS Mode of arrival: EMS - History of Present Illness Initial Comments: This patient is a 34-year-old woman with history of renal failure on hemodialysis and previous hypertensive crises who presents with acute onset of severe dyspnea. The patient relates that she had been doing relatively well until 11 today when she started to feel shortness of breath coming on and it rapidly worsened. EMS was called and placed patient on NIPPV and transported her here. The patient states there is also a tight feeling in her chest. Patient's last dialysis session was Wednesday and she states it was normal. No leg pain or swelling. MD Complaint: shortness of breath, chest pain -: hour(s) Severity: moderate Quality: aching Consistency: constant Improves With: oxygen, upright position Worsens With: lying flat Associated Symptoms: chest pain Treatments Prior to Arrival: oxygen, NIPPV - Related Data Home Oxygen Therapy: No Home Medications Medication Instructions Recorded Confirmed Docusate [Colace] 100 mg PO DAILY@0800 02/05/24 09/04/24 Lidocaine 4% Patch 1 patch TOPICAL DAILY@0800 02/05/24 09/04/24 Magnesium Hydroxide [Milk of 7,200 mg PO DAILY PRN 02/05/24 09/04/24 Magnesia Concentrate] Acetaminophen [Tylenol] 650 mg PO Q4H PRN 02/18/24 09/04/24 Biotene Dry Mouth/Throat 10 ml PO BID PRN 02/18/24 09/04/24 Butalb/APAP/Caff 50-325-40Mg 1 tab PO Q4HR PRN 03/14/24 09/04/24 [Fioricet 50-325-40] Darbepoetin Artur [Aranesp] 40 mcg SQ MO 03/14/24 09/04/24 INSULIN ASPART (NovoLOG) [NovoLOG See Protocol SQ ACHS 04/16/24 09/04/24 (formulary)] Atorvastatin [Lipitor] 40 mg PO DIRECTED 08/14/24 09/04/24 Divalproex ER [Depakote ER] 500 mg PO DIRECTED 08/14/24 09/04/24 Folic Acid-Vit B Complex-Vit C 1 cap PO DIRECTED 08/14/24 09/04/24 [Nephrocaps] HYDROcodone/APAP 7.5-325MG [[place] 1 tab PO DIRECTED PRN 08/14/24 09/04/24 7.5-325] Levothyroxine Sodium [Synthroid] 175 mcg PO DIRECTED 08/14/24 09/04/24 Metoclopramide [Reglan] 5 mg PO DIRECTED PRN 08/14/24 09/04/24 Pantoprazole [Protonix] 40 mg PO DIRECTED 08/14/24 09/04/24 Sertraline [Zoloft] 200 mg PO DIRECTED 08/14/24 09/04/24 methocarbamoL [Robaxin-750] 750 mg PO DIRECTED 08/14/24 09/04/24 traZODone HCL [Desyrel] 50 mg PO DIRECTED 08/14/24 09/04/24 ALPRAZolam [Xanax] 0.25 mg PO BID PRN 09/04/24 09/04/24 Calcium Acetate [PhosLo] 2,001 mg PO TID-W/MEALS 09/04/24 09/04/24 Calcium Acetate [PhosLo] 667 mg PO DAILY PRN 09/04/24 09/04/24 cloNIDine HCL [Catapres] 0.3 mg PO TID 09/04/24 09/04/24 Previous Rx's Medication Instructions Recorded Ipratropium-Albuterol Nebulize 3 ml INHALATION RT-TID PRN each 02/14/24 [Duoneb 0.5 mg-3 mg/3 ml Soln] polyethylene glycoL 3350 [Miralax] 17 gm PO AC-LUNCH #527 gm 02/14/24 Melatonin 1 mg PO HS tab 02/25/24 Loratadine [Claritin] 5 mg PO DAILY tab 03/30/24 Aspirin 81 mg PO DAILY@0800 #30 tab 05/18/24 Famotidine [Pepcid] 20 mg PO BID #60 tab 07/11/24 Ondansetron [Zofran] 4 mg PO Q8HR PRN #20 tab 07/11/24 Colchicine [Colcrys] 0.3 mg PO DAILY #15 each 09/23/24 Folic Acid-Vit B Complex-Vit C 1 each PO HS #30 cap 09/23/24 [Nephrocaps] INSULIN ASPART (NovoLOG) [NovoLOG 4 unit SQ AC-TID #1 each 09/23/24 (formulary)] Insulin Glargine [Lantus Vial] 12 unit SQ BID #1 each 09/23/24 Isosorbide Mononitrate ER [Imdur] 120 mg PO DAILY #60 tab 09/23/24 Labetalol [Trandate] 500 mg PO BID #150 tab 09/23/24 NIFEdipine XL [Procardia XL] 60 mg PO BID #60 tab 09/23/24 hydrALAZINE HCL [Apresoline] 100 mg PO TID #90 tab 09/23/24 Allergies Allergy/AdvReac Type Severity Reaction Status Date / Time hydromorphone HCl Allergy Anaphylaxis Verified 09/04/24 08:48 [From Dilaudid] propoxyphene Allergy Rash/Hives Verified 09/04/24 08:48 [From Darvocet-N] tramadol Allergy Anaphylaxis Verified 09/04/24 08:48 ibuprofen [From Motrin] AdvReac unable to Verified 09/04/24 08:48 take due to kidney disease venom-honey bee AdvReac passes out Verified 09/04/24 08:48 [bee venom (honey bee)] Review of Systems ROS Statement: Those systems with pertinent positive or pertinent negative responses have been documented in the HPI. ROS Other: All systems not noted in ROS Statement are negative. Constitutional: Denies: fever, chills Respiratory: Reports: as per HPI, dyspnea. Denies: wheezes, hemoptysis Cardiovascular: Reports: as per HPI, chest pain, orthopnea. Denies: edema, syncope Gastrointestinal: Denies: abdominal pain, nausea, vomiting, diarrhea Musculoskeletal: Denies: back pain Skin: Denies: rash Neurological: Denies: headache, weakness, numbness Past Medical History Past Medical History: Diabetes Mellitus, GERD/Reflux, Hypertension, Renal Disease, Seizure Disorder, Thyroid Disorder Additional Past Medical History / Comment(s): Neuropathy, last seizure 2020, gastroparesis, headaches with dialysis, states "fast heart rate" since giving ., receives Hemodialysis Wednesday- and Saturdays at [facility] [place] right chest hemodialysis catheter., severe HTN. patient awaiting Kidney and Pancrease Transplant. , states sometimes she has had stroke -like symptoms but no stroke., hx of c-diff 2013. History of Any Multi-Drug Resistant Organisms: None Reported Date of last positivie culture/infection: None MDRO Source:: None Past Surgical History: Adenoidectomy, Section, Cholecystectomy, Orthopedic Surgery, Tonsillectomy Additional Past Surgical History / Comment(s): 2 KNEE SCOPES, EAR TUBES, additional left knee surgery related to fracture, new port a cath sept , eye surgeries for diabetic retinopathy. Past Anesthesia/Blood Transfusion Reactions: Previous Problems w/ Anesthesia Additional Past Anesthesia/Blood Transfusion Reaction / Comment(s): confusion Past Psychological History: Anxiety, Depression Smoking Status: Former smoker Past Alcohol Use History: None Reported Past Drug Use History: Marijuana, Methamphetamine - Past Family History Father History Unknown: Yes Family Medical History: Unable to Obtain Mother History Unknown: Yes Family Medical History: No Reported History Grandfather History Unknown: Yes Family Medical History: Coronary Artery Disease (CAD) Additional Family Medical History / Comment(s): Diabetes mellitus type 2 General Exam General appearance: alert, in no apparent distress Head exam: Present: atraumatic, normocephalic Eye exam: Present: normal appearance. Absent: scleral icterus, conjunctival injection ENT exam: Present: normal oropharynx Neck exam: Present: normal inspection Respiratory exam: Present: respiratory distress, wheezes, rales, accessory muscle use. Absent: rhonchi, stridor, decreased breath sounds, prolonged expiratory Cardiovascular Exam: Present: normal rhythm, tachycardia, systolic murmur, gallop. Absent: diastolic murmur, rubs GI/Abdominal exam: Present: soft. Absent: distended, tenderness, guarding, rebound, rigid, mass Extremities exam: Present: normal inspection, normal capillary refill. Absent: pedal edema, calf tenderness Back exam: Present: normal inspection. Absent: CVA tenderness (R), CVA tenderness (L) Neurological exam: Present: alert Skin exam: Present: warm, dry, intact, normal color. Absent: rash Course Vital Signs 09/04/24 09/04/24 09/04/24 01:55 01:58 02:07 Temperature 97.5 F L Pulse Rate 111 H 111 H Respiratory 24 24 Rate Blood Pressure 171/120 O2 Sat by Pulse 98 100 Oximetry Fraction of 40 Inspired Oxygen (FIO2) 09/04/24 09/04/24 09/04/24 02:15 02:16 02:27 Temperature Pulse Rate 98 89 Respiratory 35 H 28 H 24 Rate Blood Pressure 148/101 167/107 O2 Sat by Pulse 99 99 Oximetry Fraction of Inspired Oxygen (FIO2) 09/04/24 09/04/24 09/04/24 02:38 02:48 03:01 Temperature Pulse Rate 90 89 88 Respiratory 26 H 22 24 Rate Blood Pressure 165/100 161/108 161/103 O2 Sat by Pulse 100 98 Oximetry Fraction of Inspired Oxygen (FIO2) 09/04/24 09/04/24 09/04/24 03:12 03:26 03:49 Temperature Pulse Rate 88 91 90 Respiratory 22 18 Rate Blood Pressure 158/98 165/103 162/101 O2 Sat by Pulse 98 98 Oximetry Fraction of Inspired Oxygen (FIO2) 09/04/24 09/04/24 09/04/24 04:06 04:17 04:39 Temperature Pulse Rate 93 95 97 Respiratory 24 24 22 Rate Blood Pressure 173/101 163/104 170/104 O2 Sat by Pulse 100 99 99 Oximetry Fraction of Inspired Oxygen (FIO2) 09/04/24 09/04/24 09/04/24 04:56 05:11 05:25 Temperature Pulse Rate 95 87 90 Respiratory 24 22 24 Rate Blood Pressure 154/99 164/100 164/100 O2 Sat by Pulse 99 98 Oximetry Fraction of Inspired Oxygen (FIO2) 09/04/24 09/04/24 09/04/24 05:38 06:00 06:46 Temperature Pulse Rate 92 93 95 Respiratory 22 24 20 Rate Blood Pressure 163/105 160/98 147/95 O2 Sat by Pulse 99 98 Oximetry Fraction of Inspired Oxygen (FIO2) 09/04/24 09/04/24 09/04/24 07:16 07:57 08:07 Temperature Pulse Rate 111 H 102 H Respiratory 22 22 Rate Blood Pressure 174/105 179/117 171/102 O2 Sat by Pulse 94 L 97 Oximetry Fraction of Inspired Oxygen (FIO2) 09/04/24 08:29 Temperature 97.8 F Pulse Rate 94 Respiratory 24 Rate Blood Pressure 173/110 O2 Sat by Pulse 98 Oximetry Fraction of Inspired Oxygen (FIO2) Medical Decision Making - Medical Decision Making The patient had chest x-ray that I interpreted as negative for acute infiltrate, negative for pneumothorax, there is cardiomegaly and vascular congestion consistent with pulmonary edema/CHF Was pt. sent in by a medical professional or institution (Dr., PA, APPAREL SALES LEADER, urgent care, hospital, or detention...) When possible be specific @ -[No] Did you speak to anyone other than the patient for history (EMS, parent, family, police, friend...)? What history was obtained from this source @ -[EMS contributed history Did you review nursing and triage notes (agree or disagree)? Why? @ -[I reviewed and agree with nursing and triage notes] Were old charts reviewed (outside hosp., previous admission, EMS record, old EKG, old radiological studies, urgent care reports/EKG's, detention records)? Report findings @ -[Yes, old charts were reviewed] Differential Diagnosis (chest pain, altered mental status, abdominal pain women, abdominal pain men, vaginal bleeding, weakness, fever, dyspnea, syncope, headache, dizziness, GI bleed, back pain, seizure, CVA, palpatations, mental health, musculoskeletal)? @ -[Differential Dyspnea: Coronary syndrome, arrhythmia, tamponade, asthma, COPD, pulmonary embolism, pneumonia, pneumothorax, pulmonary effusion, anaphylaxis, diabetic ketoacidosis, flailed chest, pulmonary contusion, diaphragmatic rupture, anemia, neuromuscular, this is not meant to be an all-inclusive list. EKG interpreted by me (3pts min.). @ -[I interpreted as above] X-rays interpreted by me (1pt min.). @ -[Interpreted as above CT interpreted by me (1pt min.). @ -[None done] U/S interpreted by me (1pt. min.). @ -[None done] What testing was considered but not performed or refused? (CT, X-rays, U/S, labs )? Why? @ -[None] What meds were considered but not given or refused? Why? @ -[None] Did you discuss the management of the patient with other professionals (professionals i.e. SOSA Arroyo, APPAREL SALES LEADER, lab, RT, psych nurse, social services analyst, fur farmer, teacher, global chief experience officer, case supervisor)? Give summary @ -[Case discussed with admitting physician and also with consultants and treatment recommendations are incorporated. Was smoking cessation discussed for >3mins.? @ -[No] Was critical care preformed (if so, how long)? @ -[Yes, 40 minutes Were there social determinants of health that impacted care today? How? (Homelessness, low income, unemployed, alcoholism, drug addiction, transportation, low edu. Level, literacy, decrease access to med. care, half-way, rehab)? @ -[No] Was there de-escalation of care discussed even if they declined (Discuss DNR or withdrawal of care, Hospice)? DNR status @ -[No] What co-morbidities impacted this encounter? (DM, HTN, Smoking, COPD, CAD, Cancer, CVA, ARF, Chemo, Hep., AIDS, mental health diagnosis, sleep apnea, morbid obesity)? @ -[Hypertension, renal failure with hemodialysis. Was patient admitted / discharged? Hospital course, mention meds given and route, prescriptions, significant lab abnormalities, going to OR and other pertinent info. @ -[Patient is a 34-year-old woman with history of kidney disease requiring dialysis, hypertension, diabetes. She presents in congestive heart failure/fluid overload and did require IV nitroglycerin and BiPAP. Patient is admitted, will have consultation for dialysis. Undiagnosed new problem with uncertain prognosis? @ -[No] Drug Therapy requiring intensive monitoring for toxicity (Heparin, Nitro, Insulin, Cardizem)? @ -[3 nitroglycerin Were any procedures done? @ -[No] Diagnosis/symptom? @ -[Acute hypertensive emergency. Chronic renal failure on dialysis Acute congestive heart failure exacerbation Acute, or Chronic, or Acute on Chronic? @ -[Acute on chronic Uncomplicated (without systemic symptoms) or Complicated (systemic symptoms)? @ -[Complicated by impending respiratory failure Side effects of treatment? @ -[No] Exacerbation, Progression, or Severe Exacerbation? @ -[No] Poses a threat to life or bodily function? How? (Chest pain, [place], [place], pneumonia, PE, COPD, DKA, ARF, appy, cholecystitis, CVA, Diverticulitis, Homicidal, Suicidal, threat to staff... and all critical care pts) @ -yes - Lab Data Result diagrams: 09/21/24 15:12 09/21/24 15:12 Lab Results 09/04/24 09/04/24 09/04/24 Range/Units 02:07 02:07 02:07 WBC 9.2 (3.8-10.6) k/uL RBC 3.51 L (3.80-5.40) m/uL Hgb 10.7 L (11.4-16.0) gm/dL Hct 34.0 (34.0-46.0) % MCV 96.9 (80.0-100.0) fL MCH 30.5 (25.0-35.0) pg MCHC 31.5 (31.0-37.0) g/dL RDW 17.2 H (11.5-15.5) % Plt Count 374 (150-450) k/uL MPV 7.8 Neutrophils % 74 % Lymphocytes % 14 % Monocytes % 4 % Eosinophils % 6 % Basophils % 1 % Neutrophils # 6.8 (1.3-7.7) k/uL Lymphocytes # 1.3 (1.0-4.8) k/uL Monocytes # 0.4 (0-1.0) k/uL Eosinophils # 0.5 (0-0.7) k/uL Basophils # 0.1 (0-0.2) k/uL Anisocytosis Slight Macrocytosis Slight PT 11.5 (10.0-12.5) sec INR 1.1 (<1.2) APTT 27.3 (22.0-30.0) sec Sodium 134 L (137-145) mmol/L Potassium 6.2 H* (3.5-5.1) mmol/L Chloride 98 (98-107) mmol/L Carbon Dioxide 25 (22-30) mmol/L Anion Gap 11 mmol/L BUN 74 H (7-17) mg/dL Creatinine 7.58 H* (0.52-1.04) mg/dL Est GFR (CKD-EPI)AfAm 7 (>60 ml/min/1.73 sqM) Est GFR (CKD-EPI)NonAf 6 (>60 ml/min/1.73 sqM) Glucose 86 (74-99) mg/dL Plasma Lactic Acid Christopher (0.7-2.0) mmol/L Calcium 8.2 L (8.4-10.2) mg/dL Total Bilirubin 1.0 (0.2-1.3) mg/dL AST 147 H (14-36) U/L ALT 196 H (4-34) U/L Alkaline Phosphatase 138 H (38-126) U/L Troponin I (0.000-0.034) ng/mL NT-Pro-B Natriuret Pep 81156 pg/mL Total Protein 6.9 (6.3-8.2) g/dL Albumin 4.5 (3.5-5.0) g/dL 09/04/24 09/04/24 Range/Units 02:07 02:07 WBC (3.8-10.6) k/uL RBC (3.80-5.40) m/uL Hgb (11.4-16.0) gm/dL Hct (34.0-46.0) % MCV (80.0-100.0) fL MCH (25.0-35.0) pg MCHC (31.0-37.0) g/dL RDW (11.5-15.5) % Plt Count (150-450) k/uL MPV Neutrophils % % Lymphocytes % % Monocytes % % Eosinophils % % Basophils % % Neutrophils # (1.3-7.7) k/uL Lymphocytes # (1.0-4.8) k/uL Monocytes # (0-1.0) k/uL Eosinophils # (0-0.7) k/uL Basophils # (0-0.2) k/uL Anisocytosis Macrocytosis PT (10.0-12.5) sec INR (<1.2) APTT (22.0-30.0) sec Sodium (137-145) mmol/L Potassium (3.5-5.1) mmol/L Chloride (98-107) mmol/L Carbon Dioxide (22-30) mmol/L Anion Gap mmol/L BUN (7-17) mg/dL Creatinine (0.52-1.04) mg/dL Est GFR (CKD-EPI)AfAm (>60 ml/min/1.73 sqM) Est GFR (CKD-EPI)NonAf (>60 ml/min/1.73 sqM) Glucose (74-99) mg/dL Plasma Lactic Acid Christopher 1.0 (0.7-2.0) mmol/L Calcium (8.4-10.2) mg/dL Total Bilirubin (0.2-1.3) mg/dL AST (14-36) U/L ALT (4-34) U/L Alkaline Phosphatase (38-126) U/L Troponin I <0.012 (0.000-0.034) ng/mL NT-Pro-B Natriuret Pep pg/mL Total Protein (6.3-8.2) g/dL Albumin (3.5-5.0) g/dL - EKG Data -: EKG Interpreted by Me EKG shows normal: sinus rhythm, axis (Normal), intervals (Normal), QRS complexes ( normal), ST-T waves (Normal) Rate: tachycardia (Rate 105 bpm) Disposition Clinical Impression: Hypertensive emergency, Hyperkalemia, Acute pulmonary edema, ESRD (end stage renal disease) Disposition: ADMITTED IP TO THIS HOSP Is patient prescribed a controlled substance at d/c from ED?: No
[2024-09-04 03:12] LABS: NT-Pro-B-Type Natriuretic Pept 58200 pg/mL
[2024-09-04] MEDS: hydrALAZINE HCL 20 MG/ML 1 ML VIAL IVP STA (05:32)
[2024-09-04] MEDS ORDERED: ACETAMINOPHEN SUPPOSITORY 650 MG SUPP RECTAL PRN (05:55)
[2024-09-04] MEDS ORDERED: NALOXONE 0.4 MG/ML 1 ML VIAL IV PRN (05:55)
[2024-09-04] MEDS: hydrALAZINE HCL 50 MG TAB PO SCH ×2 (06:14→07:58)
[2024-09-04] MEDS: SODIUM CHLORIDE 0.9% 1,000 ML IV SCH (06:16)
[2024-09-04 06:25] LABS: Glucose,Whole Blood 266 mg/dL (70-110)
[2024-09-04] MEDS: LORazepam 2 MG/ML INJ IV PRN (06:40)
[2024-09-04] MEDS: amLODIPine 10 MG TAB PO SCH (07:58)
[2024-09-04] MEDS: cloNIDine HCL 0.1 MG TAB PO SCH (07:58)
[2024-09-04] MEDS: DIVALPROEX ER 500 MG TAB.ER.24H PO SCH (07:58)
[2024-09-04] MEDS: LABETALOL 200 MG TAB PO SCH (07:58)
[2024-09-04] MEDS: ASPIRIN 81 MG PO SCH (07:59)
[2024-09-04] MEDS: FAMOTIDINE 20 MG/2 ML VIAL IV SCH (08:02)
[2024-09-04] MEDS ORDERED: ISOSORBIDE MONONITRATE ER 30 MG TAB.ER.24H PO SCH (09:00)
[2024-09-04] MEDS: MORPHINE SULFATE 4 MG/ML SYRINGE IV PRN (10:03)
--- NOTE | 2024-09-04 10:08 | P.NPCON ---
History of Present Illness - Reason for Consult end stage renal disease - History of Present Illness Reason for consultation: End-stage renal disease History of present illness: Patient is a 34-year-old female seen in renal consultation for end-stage renal disease. She is maintained on hemodialysis on Wednesday. Denies missing any dialysis treatments. Patient states she suddenly became short of breath around 11 PM and came to the hospital. Patient was placed on a BiPAP but is now on a nasal cannula. She is maintained on nitroglycerin drip. Blood pressure has improved. Patient denies excessive fluid or salt intake. She does not make any urine. Echocardiogram from December 2023 showed mild mitral and tricuspid regurgitation. Patient states she has been compliant with her medications. She recently also had a dental infection which she states has improved and is now done with antibiotics. Patient has history of type 1 diabetes. Vital signs - afebrile. Blood pressure high. General: No acute distress. HEENT: Head exam is unremarkable. On nasal cannula. LUNGS: No audible rhonchi or wheezes. HEART: Rate and Rhythm are regular. ABDOMEN: Nontender. EXTREMITITES: 1+ edema. Past Medical History Past Medical History: Diabetes Mellitus, GERD/Reflux, Hypertension, Renal Disease, Seizure Disorder, Thyroid Disorder Additional Past Medical History / Comment(s): Neuropathy, last seizure 2020, gastroparesis, headaches with dialysis, states "fast heart rate" since giving ., receives Hemodialysis and Saturdays at [facility]., right chest hemodialysis catheter., severe HTN. patient awaiting Kidney and Pancrease Transplant. , states sometimes she has had stroke -like symptoms but no stroke., hx of c-diff 2013. History of Any Multi-Drug Resistant Organisms: None Reported Date of last positivie culture/infection: None MDRO Source:: None Past Surgical History: Adenoidectomy, Section, Cholecystectomy, Orthopedic Surgery, Tonsillectomy Additional Past Surgical History / Comment(s): 2 KNEE SCOPES, EAR TUBES, additional left knee surgery related to fracture, new port a cath jul 29, eye surgeries for diabetic retinopathy. Past Anesthesia/Blood Transfusion Reactions: Previous Problems w/ Anesthesia Additional Past Anesthesia/Blood Transfusion Reaction / Comment(s): confusion Past Psychological History: Anxiety, Depression Smoking Status: Former smoker Past Alcohol Use History: None Reported Past Drug Use History: Marijuana, Methamphetamine - Past Family History Father History Unknown: Yes Family Medical History: Unable to Obtain Mother History Unknown: Yes Family Medical History: No Reported History Grandfather History Unknown: Yes Family Medical History: Coronary Artery Disease (CAD) Additional Family Medical History / Comment(s): Diabetes mellitus type 2 Medications and Allergies Home Medications Medication Instructions Recorded Confirmed Type Docusate [Colace] 100 mg PO DAILY@0800 02/05/24 09/04/24 History Lidocaine 4% Patch 1 patch TOPICAL DAILY@0800 02/05/24 09/04/24 History Magnesium Hydroxide [Milk of 7,200 mg PO DAILY PRN 02/05/24 09/04/24 History Magnesia Concentrate] Ipratropium-Albuterol Nebulize 3 ml INHALATION RT-TID PRN each 02/14/24 09/04/24 Rx [Duoneb 0.5 mg-3 mg/3 ml Soln] polyethylene glycoL 3350 [Miralax] 17 gm PO AC-LUNCH #527 gm 02/14/24 09/04/24 Rx Acetaminophen [Tylenol] 650 mg PO Q4H PRN 02/18/24 09/04/24 History Biotene Dry Mouth/Throat 10 ml PO BID PRN 02/18/24 09/04/24 History Melatonin 1 mg PO HS tab 02/25/24 09/04/24 Rx Butalb/APAP/Caff 50-325-40Mg 1 tab PO Q4HR PRN 03/14/24 09/04/24 History [Fioricet 50-325-40] Darbepoetin Artur [Aranesp] 40 mcg SQ MO 03/14/24 09/04/24 History Loratadine [Claritin] 5 mg PO DAILY tab 03/30/24 09/04/24 Rx INSULIN ASPART (NovoLOG) [NovoLOG See Protocol SQ ACHS 04/16/24 09/04/24 History (formulary)] Aspirin 81 mg PO DAILY@0800 #30 tab 05/18/24 09/04/24 Rx Famotidine [Pepcid] 20 mg PO BID #60 tab 07/11/24 09/04/24 Rx Insulin Glargine [Lantus Vial] 12 unit SQ BID #1 each 07/11/24 09/04/24 Rx Ondansetron [Zofran] 4 mg PO Q8HR PRN #20 tab 07/11/24 09/04/24 Rx Atorvastatin [Lipitor] 40 mg PO DIRECTED 08/14/24 09/04/24 History Divalproex ER [Depakote ER] 500 mg PO DIRECTED 08/14/24 09/04/24 History Folic Acid-Vit B Complex-Vit C 1 cap PO DIRECTED 08/14/24 09/04/24 History [Nephrocaps] HYDROcodone/APAP 7.5-325MG [[place] 1 tab PO DIRECTED PRN 08/14/24 09/04/24 History 7.5-325] Levothyroxine Sodium [Synthroid] 175 mcg PO DIRECTED 08/14/24 09/04/24 History Metoclopramide [Reglan] 5 mg PO DIRECTED PRN 08/14/24 09/04/24 History Pantoprazole [Protonix] 40 mg PO DIRECTED 08/14/24 09/04/24 History Sertraline [Zoloft] 200 mg PO DIRECTED 08/14/24 09/04/24 History hydrALAZINE HCL [Apresoline] 150 mg PO QID 08/14/24 09/04/24 History methocarbamoL [Robaxin-750] 750 mg PO DIRECTED 08/14/24 09/04/24 History traZODone HCL [Desyrel] 50 mg PO DIRECTED 08/14/24 09/04/24 History Labetalol [Trandate] 200 mg PO BID 30 Days #60 tab 08/24/24 09/04/24 Rx amLODIPine [Norvasc] 10 mg PO DAILY 30 Days #30 tab 08/24/24 09/04/24 Rx ALPRAZolam [Xanax] 0.25 mg PO BID PRN 09/04/24 09/04/24 History Calcium Acetate [Phoslo] 2,001 mg PO TID-W/MEALS 09/04/24 09/04/24 History Calcium Acetate [Phoslo] 667 mg PO DAILY PRN 09/04/24 09/04/24 History Isosorbide Mononitrate ER [Imdur] 30 mg PO DAILY 09/04/24 09/04/24 History Sacubitril/Valsartan [Entresto 49 1 tab PO BID 09/04/24 09/04/24 History mg-51 mg Tablet] cloNIDine HCL [Catapres] 0.3 mg PO TID 09/04/24 09/04/24 History Allergies Allergy/AdvReac Type Severity Reaction Status Date / Time hydromorphone HCl Allergy Anaphylaxis Verified 09/04/24 08:48 [From Dilaudid] propoxyphene Allergy Rash/Hives Verified 09/04/24 08:48 [From Darvocet-N] tramadol Allergy Anaphylaxis Verified 09/04/24 08:48 ibuprofen [From Motrin] AdvReac unable to Verified 09/04/24 08:48 take due to kidney disease venom-honey bee AdvReac passes out Verified 09/04/24 08:48 [bee venom (honey bee)] Physical Exam Vitals: Vital Signs Temp Pulse Resp BP Pulse Ox FiO2 09/04/24 08:29 97.8 F 94 24 173/110 98 09/04/24 08:07 102 H 22 171/102 97 09/04/24 07:57 179/117 09/04/24 07:16 111 H 22 174/105 94 L 09/04/24 06:46 95 20 147/95 98 09/04/24 06:00 93 24 160/98 09/04/24 05:38 92 22 163/105 99 09/04/24 05:25 90 24 164/100 98 09/04/24 05:11 87 22 164/100 09/04/24 04:56 95 24 154/99 99 09/04/24 04:39 97 22 170/104 99 09/04/24 04:17 95 24 163/104 99 09/04/24 04:06 93 24 173/101 100 09/04/24 03:49 90 162/101 09/04/24 03:26 91 18 165/103 98 09/04/24 03:12 88 22 158/98 98 09/04/24 03:01 88 24 161/103 09/04/24 02:48 89 22 161/108 98 09/04/24 02:38 90 26 H 165/100 100 09/04/24 02:27 89 24 167/107 99 09/04/24 02:16 98 28 H 148/101 99 09/04/24 02:15 35 H 10/21/24 02:07 40 09/04/24 01:58 111 H 24 100 09/04/24 01:55 97.5 F L 111 H 24 171/120 98 Intake and Output 09/03/24 09/04/24 09/04/24 22:59 06:59 14:59 Intake Total 138.925 111.075 Balance 138.925 111.075 Intake: Intake, IV Titration 138.925 111.075 Amount Nitroglycerin-D5w Pmx 50 138.925 111.075 mg In Dextrose/Water 1 250ml.bag @ 50 MCG/MIN 15 mls/hr IV .[id number] ONE Rx#:[id number] Other: Weight 65.771 kg Results - Lab Results Most recent lab results Calcium 8.2 mg/dL (8.4-10.2) L 09/04/24 02:07 09/04/24 02:07 09/04/24 02:07 Assessment and Plan Plan: Assessment: 1. End-stage renal disease maintained on hemodialysis on Wednesday. 2. Acute hypoxic respiratory failure currently on nasal cannula. 3. Hypertensive emergency. 4. Chronic kidney disease mineral bone disease maintained on Renvela. 5. Hyperkalemia secondary to chronic kidney disease. Entresto also noted on medication list. 6. Type 1 diabetes mellitus. 7. Volume overload. Plan: Hemodialysis today and again tomorrow. Challenge ultrafiltration. Hold Entresto due to hyperkalemia. 1 g IV calcium gluconate, 10 units IV regular insulin with an amp of D50 now. Home BP meds resumed. Wean nitroglycerin. Thank you for the consultation. I will continue to follow the patient with you during her hospital stay.
[2024-09-04] MEDS: CALCIUM GLUCONATE IN NACL 1 GM in SALINE 1 100ML.BAG IVPB ONE (10:38)
[2024-09-04] MEDS: DEXTROSE 50% SYRINGE 50 ML IVP STA (10:38)
[2024-09-04] MEDS: INSULIN REGULAR 100 UNIT/ML VIAL (IV) IV ONE (10:38)
--- NOTE | 2024-09-04 10:41 | P.CNPUL ---
History of Present Illness Consult date: 09/04/24 Requesting physician: Dahiana Chan Reason for consult: other (ICU management/hypertensive emergency) Chief complaint: Shortness of breath History of present illness: This is a 34-year-old female, familiar to my service, I have seen this patient multiple times previously for similar admissions mostly admission secondary to hypertensive emergency and pulmonary edema. Patient had this similar pr esentation today, she is maintained on hemodialysis for end-stage renal disease and she is supposed to be getting dialysis Wednesday and Wednesday. Patient denies missing any dialysis treatments, however she came into the ER around 11 PM last night complaining of increased shortness of breath. Patient required placement on BiPAP, and her blood pressure was extremely elevated in the 180 range systolic chest x-ray showed evidence of pulmonary edema, patient was placed on nitroglycerin drip, and she is to be dialyzed today by nephrology, patient will be admitted to the ICU, hence this consult was initiated. During my evaluation, patient was on nasal cannula, did not seem to be in any distress, however she was still on nitroglycerin drip, blood pressure was still elevated patient is on multiple medications for hypertension including hydralazine, clonidine, amlodipine, labetalol, and now she is on nitroglycerin drip. Again her chest x-ray showed evidence of pulmonary edema CBC is relatively unremarkable with WC count of 9.2 hemoglobin 10.7. Electrolytes are abnormal with potassium of 6.2 her bicarb is normal BUN is 74 creatinine 7.58 GFR is only 70 BNP level was over 58,000. Liver enzymes were also noted to be a bit elevated. Review of Systems CONSTITUTIONAL: Denies any recent significant weight loss or weight gain. EYES: Denies change in vision. EARS, NOSE, MOUTH, THROAT: Denies headaches, denies sore throat. CARDIOVASCULAR: Denies chest pain, palpitations or syncopal episodes. RESPIRATORY: Positive for shortness of breath, no cough, congestion or hemoptysis. GASTROINTESTINAL: Denies change in appetite, denies abdominal pain GENITOURINARY: Denies hematuria, denies infections. MUSKULOSKELETAL: Denies pain, denies swelling. INTEGUMENTARY: Denies rash, denies eczema. NEUROLOGICAL: Denies recent memory loss, no recent seizure activity. PSYCHIATRIC: Denies anxiety, denies depression. HEMATOLOGIC/LYMPHATIC: Denies anemia, denies enlarged lymph nodes. Past Medical History Past Medical History: Diabetes Mellitus, GERD/Reflux, Hypertension, Renal Disease, Seizure Disorder, Thyroid Disorder Additional Past Medical History / Comment(s): Neuropathy, last seizure 2020, gastroparesis, headaches with dialysis, states "fast heart rate" since giving ., receives Hemodialysis Wednesday- and Saturdays at [facility]., right chest hemodialysis catheter., severe HTN. patient awaiting Kidney and Pancrease Transplant. , states sometimes she has had stroke -like symptoms but no stroke., hx of c-diff 2013. History of Any Multi-Drug Resistant Organisms: None Reported Date of last positivie culture/infection: None MDRO Source:: None Past Surgical History: Adenoidectomy, Section, Cholecystectomy, Orthopedic Surgery, Tonsillectomy Additional Past Surgical History / Comment(s): 2 KNEE SCOPES, EAR TUBES, ad ditional left knee surgery related to fracture, new port a cath jul 29, eye surgeries for diabetic retinopathy. Past Anesthesia/Blood Transfusion Reactions: Previous Problems w/ Anesthesia Additional Past Anesthesia/Blood Transfusion Reaction / Comment(s): confusion Past Psychological History: Anxiety, Depression Smoking Status: Former smoker Past Alcohol Use History: None Reported Past Drug Use History: Marijuana, Methamphetamine - Past Family History Father History Unknown: Yes Family Medical History: Unable to Obtain Mother History Unknown: Yes Family Medical History: No Reported History Grandfather History Unknown: Yes Family Medical History: Coronary Artery Disease (CAD) Additional Family Medical History / Comment(s): Diabetes mellitus type 2 Medications and Allergies Home Medications Medication Instructions Recorded Confirmed Type Docusate [Colace] 100 mg PO DAILY@0800 02/05/24 09/04/24 History Lidocaine 4% Patch 1 patch TOPICAL DAILY@79902/05/24 09/04/24 History Magnesium Hydroxide [Milk of 7,200 mg PO DAILY PRN 02/05/24 09/04/24 History Magnesia Concentrate] Ipratropium-Albuterol Nebulize 3 ml INHALATION RT-TID PRN each 02/14/24 09/04/24 Rx [Duoneb 0.5 mg-3 mg/3 ml Soln] polyethylene glycoL 3350 [Miralax] 17 gm PO AC-LUNCH #527 gm 02/14/24 09/04/24 Rx Acetaminophen [Tylenol] 650 mg PO Q4H PRN 02/18/24 09/04/24 History Biotene Dry Mouth/Throat 10 ml PO BID PRN 02/18/24 09/04/24 History Melatonin 1 mg PO HS tab 02/25/24 09/04/24 Rx Butalb/APAP/Caff 50-325-40Mg 1 tab PO Q4HR PRN 03/14/24 09/04/24 History [Fioricet 50-325-40] Darbepoetin Artur [Aranesp] 40 mcg SQ MO 03/14/24 09/04/24 History Loratadine [Claritin] 5 mg PO DAILY tab 03/30/24 09/04/24 Rx INSULIN ASPART (NovoLOG) [NovoLOG See Protocol SQ ACHS 04/16/24 09/04/24 History (formulary)] Aspirin 81 mg PO DAILY@0800 #30 tab 05/18/24 09/04/24 Rx Famotidine [Pepcid] 20 mg PO BID #60 tab 07/11/24 09/04/24 Rx Insulin Glargine [Lantus Vial] 12 unit SQ BID #1 each 07/11/24 09/04/24 Rx Ondansetron [Zofran] 4 mg PO Q8HR PRN #20 tab 07/11/24 09/04/24 Rx Atorvastatin [Lipitor] 40 mg PO DIRECTED 08/14/24 09/04/24 History Divalproex ER [Depakote ER] 500 mg PO DIRECTED 08/14/24 09/04/24 History Folic Acid-Vit B Complex-Vit C 1 cap PO DIRECTED 08/14/24 09/04/24 History [Nephrocaps] HYDROcodone/APAP 7.5-325MG [[place] 1 tab PO DIRECTED PRN 08/14/24 09/04/24 History 7.5-325] Levothyroxine Sodium [Synthroid] 175 mcg PO DIRECTED 08/14/24 09/04/24 History Metoclopramide [Reglan] 5 mg PO DIRECTED PRN 08/14/24 09/04/24 History Pantoprazole [Protonix] 40 mg PO DIRECTED 08/14/24 09/04/24 History Sertraline [Zoloft] 200 mg PO DIRECTED 08/14/24 09/04/24 History hydrALAZINE HCL [Apresoline] 150 mg PO QID 08/14/24 09/04/24 History methocarbamoL [Robaxin-750] 750 mg PO DIRECTED 08/14/24 09/04/24 History traZODone HCL [Desyrel] 50 mg PO DIRECTED 08/14/24 09/04/24 History Labetalol [Trandate] 200 mg PO BID 30 Days #60 tab 08/24/24 09/04/24 Rx amLODIPine [Norvasc] 10 mg PO DAILY 30 Days #30 tab 08/24/24 09/04/24 Rx ALPRAZolam [Xanax] 0.25 mg PO BID PRN 09/04/24 09/04/24 History Calcium Acetate [Phoslo] 2,001 mg PO TID-W/MEALS 09/04/24 09/04/24 History Calcium Acetate [Phoslo] 667 mg PO DAILY PRN 09/04/24 09/04/24 History Isosorbide Mononitrate ER [Imdur] 30 mg PO DAILY 09/04/24 09/04/24 History Sacubitril/Valsartan [Entresto 49 1 tab PO BID 09/04/24 09/04/24 History mg-51 mg Tablet] cloNIDine HCL [Catapres] 0.3 mg PO TID 09/04/24 09/04/24 History Allergies Allergy/AdvReac Type Severity Reaction Status Date / Time hydromorphone HCl Allergy Anaphylaxis Verified 09/04/24 08:48 [From Dilaudid] propoxyphene Allergy Rash/Hives Verified 09/04/24 08:48 [From Darvocet-N] tramadol Allergy Anaphylaxis Verified 09/04/24 08:48 ibuprofen [From Motrin] AdvReac unable to Verified 09/04/24 08:48 take due to kidney disease venom-honey bee AdvReac passes out Verified 09/04/24 08:48 [bee venom (honey bee)] Physical Exam Vitals: Vital Signs Temp Pulse Resp BP Pulse Ox FiO2 09/04/24 09:45 93 18 142/92 96 09/04/24 09:30 142/89 09/04/24 09:15 91 12 151/96 98 09/04/24 09:00 98.1 F 101 H 58 H 151/102 98 09/04/24 08:29 97.8 F 94 24 173/110 98 09/04/24 08:07 102 H 22 171/102 97 09/04/24 07:57 179/117 09/04/24 07:16 111 H 22 174/105 94 L 09/04/24 06:46 95 20 147/95 98 09/04/24 06:00 93 24 160/98 09/04/24 05:38 92 22 163/105 99 09/04/24 05:25 90 24 164/100 98 09/04/24 05:11 87 22 164/100 09/04/24 04:56 95 24 154/99 99 09/04/24 04:39 97 22 170/104 99 09/04/24 04:17 95 24 163/104 99 09/04/24 04:06 93 24 173/101 100 09/04/24 03:49 90 162/101 09/04/24 03:26 91 18 165/103 98 09/04/24 03:12 88 22 158/98 98 09/04/24 03:01 88 24 161/103 09/04/24 02:48 89 22 161/108 98 09/04/24 02:38 90 26 H 165/100 100 09/04/24 02:27 89 24 167/107 99 09/04/24 02:16 98 28 H 148/101 99 09/04/24 02:15 35 H 09/04/24 02:07 40 09/04/24 01:58 111 H 24 100 09/04/24 01:55 97.5 F L 111 H 24 171/120 98 Intake and Output 09/03/24 09/04/24 09/04/24 22:59 06:59 14:59 Intake Total 138.925 111.075 Balance 138.925 111.075 Intake: Intake, IV Titration 138.925 111.075 Amount Nitroglycerin-D5w Pmx 50 138.925 111.075 mg In Dextrose/Water 1 250ml.bag @ 50 MCG/MIN 15 mls/hr IV .[id number] ONE Rx#:[id number] Other: Weight 65.771 kg GENERAL EXAM: Alert, 34-year-old female, on cell cannula and BiPAP is at bedside. HEAD: Normocephalic. EYES: Normal reaction of pupils, equal size. NOSE: Clear with pink turbinates. THROAT: No erythema or exudates. NECK: No masses, no JVD. CHEST: No chest wall deformity. Right sided hemodialysis catheter in place LUNGS: Fine crackles at the bases. No rhonchi no wheezes. CVS: S1 and S2 normal with no audible murmur, regular rhythm. ABDOMEN: No hepatosplenomegaly, normal bowel sounds, no guarding or rigidity. SKIN: No rashes CENTRAL NERVOUS SYSTEM: No focal deficits, tone is normal in all 4 extremities. EXTREMITIES: There is no peripheral edema. No clubbing, no cyanosis. Peripheral pulses are intact. Results - Laboratory Findings CBC and BMP: 09/04/24 02:07 09/04/24 02:07 PT/INR, D-dimer PT 11.5 sec (10.0-12.5) 09/04/24 02:07 INR 1.1 (<1.2) 09/04/24 02:07 Abnormal lab findings: Abnormal Labs 09/04/24 09/04/24 09/04/24 02:07 02:07 06:24 RBC 3.51 L Hgb 10.7 L RDW 17.2 H Sodium 134 L Potassium 6.2 H* BUN 74 H Creatinine 7.58 H* POC Glucose (mg/dL) 266 H Calcium 8.2 L AST 147 H ALT 196 H Alkaline Phosphatase 138 H - Diagnostic Findings Chest x-ray: image reviewed (As noted in HPI) Assessment and Plan Assessment: Impression Acute hypoxemic respiratory failure secondary to an acute episode of pulmonary edema and fluid volume overload currently requiring BiPAP support. Hypertensive urgency requiring nitroglycerin drip currently at 130 mcg/min End-stage renal disease requiring hemodialysis 4 times per week Hyperkalemia secondary to above Diabetes mellitus, insulin-dependent Anemia of chronic disease History of CVA/TIA History of optic neuritis Hypothyroidism History of depression Recommendation Patient was seen and examined in the ER, Reviewed all her medications Reviewed her chest x-ray Continue present meds including all the blood pressure medications as listed Titrate nitroglycerin Admit to ICU Nephrology to see for hemodialysis Will continue to follow. Time with Patient: Greater than 30
[2024-09-04] MEDS: polyethylene glycoL 3350 17 GM POWD.PACK PO SCH (12:47)
[2024-09-04] MEDS: MAGNESIUM HYDROXIDE 2,400 MG/30 ML CUP PO PRN (12:50)
--- NOTE | 2024-09-04 14:40 | P.HPIM ---
History of Present Illness H&P Date: 09/04/24 Chief Complaint: Shortness of breath Patient is a 34-year-old female with a past medical history of hypertension, diabetes type 1, ESRD on hemodialysis/4 times a week., Seizure disorder and hypothyroidism and also history of gastroparesis and chronic pain, anxiety/depression. Patient presents to ER with complaints of shortness of breath. Patient states that she had last hemodialysis on Wednesday. She has been doing well until 11 PM and started having shortness of breath and rapidly worsening. EMS was called and patient was transported to ER. Patient was placed on BiPAP and wrote. She was also having chest tightness along with shortness of breath. Denied any worsening swelling in the legs. No fever no chills. No nausea vomiting or diarrhea. No headache or dizziness. Chest x-ray showed findings consistent with CHF exacerbation/fluid overload state. EKG showed sinus tachycardia with heart rate 105 Laboratory test showed WBC 9.2 hemoglobin 10.7 and platelets 374 Sodium 134 potassium 6.2 with slight hemolysis Chloride 98 bicarb is 25 BUN 74 and creatinine 7.58 and blood sugar 266. Lactic acid 1.0 AST 147 ALT 196 and alk phos 138, troponin 0.012 and proBNP 58,200. Patient's blood pressure was 171/120 pulse 111 respiration 24 on admission. Patient was started on nitro drip in the ER. Review of Systems Constitutional: Patient denies any fever or chills . No generalized weakness or weight loss. Abdomen: Patient denied nausea vomiting. No diarrhea. No complaints of abdominal pain. Cardiovascular: Patient denies any chest pain. Patient does have short of breath no palpitations. Respiratory: patient denied any cough or sputum production. Positive for shortness of breath Neurologic: Patient denied any numbness or tingling. no headache. Musculoskeletal: Patient denies any complaints of joint swelling or deformity. Skin: Negative Psychiatric: Negative Endocrine: No heat or cold intolerance. No recent weight gain. Genitourinary: No dysuria or hematuria. All other 14 point ROS negative except the above Past Medical History Past Medical History: Diabetes Mellitus, GERD/Reflux, Hypertension, Renal Disease, Seizure Disorder, Thyroid Disorder Additional Past Medical History / Comment(s): Neuropathy, last seizure 2020, gastroparesis, headaches with dialysis, states "fast heart rate" since giving ., receives Hemodialysis Wednesday- and Saturdays at [facility] right chest hemodialysis catheter., severe HTN. patient awaiting Kidney and Pancrease Transplant. , states sometimes she has had stroke -like symptoms but no stroke., hx of c-diff 2013. History of Any Multi-Drug Resistant Organisms: None Reported Date of last positivie culture/infection: None MDRO Source:: None Past Surgical History: Adenoidectomy, Section, Cholecystectomy, Orthopedic Surgery, Tonsillectomy Additional Past Surgical History / Comment(s): 2 KNEE SCOPES, EAR TUBES, additional left knee surgery related to fracture, new port a cath sept , eye surgeries for diabetic retinopathy. Past Anesthesia/Blood Transfusion Reactions: Previous Problems w/ Anesthesia Additional Past Anesthesia/Blood Transfusion Reaction / Comment(s): confusion Past Psychological History: Anxiety, Depression Smoking Status: Former smoker Past Alcohol Use History: None Reported Past Drug Use History: Marijuana, Methamphetamine - Past Family History Father History Unknown: Yes Family Medical History: Unable to Obtain Mother History Unknown: Yes Family Medical History: No Reported History Grandfather History Unknown: Yes Family Medical History: Coronary Artery Disease (CAD) Additional Family Medical History / Comment(s): Diabetes mellitus type 2 Medications and Allergies Home Medications Medication Instructions Recorded Confirmed Type Docusate [Colace] 100 mg PO DAILY@0800 02/05/24 09/04/24 History Lidocaine 4% Patch 1 patch TOPICAL DAILY@0800 02/05/24 09/04/24 History Magnesium Hydroxide [Milk of 7,200 mg PO DAILY PRN 02/05/24 09/04/24 History Magnesia Concentrate] Ipratropium-Albuterol Nebulize 3 ml INHALATION RT-TID PRN each 02/14/24 09/04/24 Rx [Duoneb 0.5 mg-3 mg/3 ml Soln] polyethylene glycoL 3350 [Miralax] 17 gm PO AC-LUNCH #527 gm 02/14/24 09/04/24 Rx Acetaminophen [Tylenol] 650 mg PO Q4H PRN 02/18/24 09/04/24 History Biotene Dry Mouth/Throat 10 ml PO BID PRN 02/18/24 09/04/24 History Melatonin 1 mg PO HS tab 02/25/24 09/04/24 Rx Butalb/APAP/Caff 50-325-40Mg 1 tab PO Q4HR PRN 03/14/24 09/04/24 History [Fioricet 50-325-40] Darbepoetin Artur [Aranesp] 40 mcg SQ MO 03/14/24 09/04/24 History Loratadine [Claritin] 5 mg PO DAILY tab 03/30/24 09/04/24 Rx INSULIN ASPART (NovoLOG) [NovoLOG See Protocol SQ ACHS 04/16/24 09/04/24 History (formulary)] Aspirin 81 mg PO DAILY@0800 #30 tab 05/18/24 09/04/24 Rx Famotidine [Pepcid] 20 mg PO BID #60 tab 07/11/24 09/04/24 Rx Insulin Glargine [Lantus Vial] 12 unit SQ BID #1 each 07/11/24 09/04/24 Rx Ondansetron [Zofran] 4 mg PO Q8HR PRN #20 tab 07/11/24 09/04/24 Rx Atorvastatin [Lipitor] 40 mg PO DIRECTED 08/14/24 09/04/24 History Divalproex ER [Depakote ER] 500 mg PO DIRECTED 08/14/24 09/04/24 History Folic Acid-Vit B Complex-Vit C 1 cap PO DIRECTED 08/14/24 09/04/24 History [Nephrocaps] HYDROcodone/APAP 7.5-325MG [[place] 1 tab PO DIRECTED PRN 08/14/24 09/04/24 History 7.5-325] Levothyroxine Sodium [Synthroid] 175 mcg PO DIRECTED 08/14/24 09/04/24 History Metoclopramide [Reglan] 5 mg PO DIRECTED PRN 08/14/24 09/04/24 History Pantoprazole [Protonix] 40 mg PO DIRECTED 08/14/24 09/04/24 History Sertraline [Zoloft] 200 mg PO DIRECTED 08/14/24 09/04/24 History hydrALAZINE HCL [Apresoline] 150 mg PO QID 08/14/24 09/04/24 History methocarbamoL [Robaxin-750] 750 mg PO DIRECTED 08/14/24 09/04/24 History traZODone HCL [Desyrel] 50 mg PO DIRECTED 08/14/24 09/04/24 History Labetalol [Trandate] 200 mg PO BID 30 Days #60 tab 08/24/24 09/04/24 Rx amLODIPine [Norvasc] 10 mg PO DAILY 30 Days #30 tab 08/24/24 09/04/24 Rx ALPRAZolam [Xanax] 0.25 mg PO BID PRN 09/04/24 09/04/24 History Calcium Acetate [Phoslo] 2,001 mg PO TID-W/MEALS 09/04/24 09/04/24 History Calcium Acetate [Phoslo] 667 mg PO DAILY PRN 09/04/24 09/04/24 History Isosorbide Mononitrate ER [Imdur] 30 mg PO DAILY 09/04/24 09/04/24 History Sacubitril/Valsartan [Entresto 49 1 tab PO BID 09/04/24 09/04/24 History mg-51 mg Tablet] cloNIDine HCL [Catapres] 0.3 mg PO TID 09/04/24 09/04/24 History Allergies Allergy/AdvReac Type Severity Reaction Status Date / Time hydromorphone HCl Allergy Anaphylaxis Verified 09/04/24 08:48 [From Dilaudid] propoxyphene Allergy Rash/Hives Verified 09/04/24 08:48 [From Darvocet-N] tramadol Allergy Anaphylaxis Verified 09/04/24 08:48 ibuprofen [From Motrin] AdvReac unable to Verified 09/04/24 08:48 take due to kidney disease venom-honey bee AdvReac passes out Verified 09/04/24 08:48 [bee venom (honey bee)] Physical Exam Vitals: Vital Signs Temp Pulse Resp BP Pulse Ox FiO2 09/04/24 09:45 93 18 142/92 96 09/04/24 09:30 142/89 09/04/24 09:15 91 12 151/96 98 09/04/24 09:00 98.1 F 101 H 58 H 151/102 98 09/04/24 08:29 97.8 F 94 24 173/110 98 09/04/24 08:07 102 H 22 171/102 97 09/04/24 07:57 179/117 09/04/24 07:16 111 H 22 174/105 94 L 09/04/24 06:46 95 20 147/95 98 09/04/24 06:00 93 24 160/98 09/04/24 05:38 92 22 163/105 99 09/04/24 05:25 90 24 164/100 98 09/04/24 05:11 87 22 164/100 09/04/24 04:56 95 24 154/99 99 09/04/24 04:39 97 22 170/104 99 09/04/24 04:17 95 24 163/104 99 09/04/24 04:06 93 24 173/101 100 09/04/24 03:49 90 162/101 09/04/24 03:26 91 18 165/103 98 09/04/24 03:12 88 22 158/98 98 09/04/24 03:01 88 24 161/103 09/04/24 02:48 89 22 161/108 98 09/04/24 02:38 90 26 H 165/100 100 09/04/24 02:27 89 24 167/107 99 09/04/24 02:16 98 28 H 148/101 99 09/04/24 02:15 35 H 09/04/24 02:07 40 09/04/24 01:58 111 H 24 100 09/04/24 01:55 97.5 F L 111 H 24 171/120 98 Intake and Output 09/03/24 09/04/24 09/04/24 22:59 06:59 14:59 Intake Total 138.925 111.075 Balance 138.925 111.075 Intake: Intake, IV Titration 138.925 111.075 Amount Nitroglycerin-D5w Pmx 50 138.925 111.075 mg In Dextrose/Water 1 250ml.bag @ 50 MCG/MIN 15 mls/hr IV .[id number] ONE Rx#:[id number] Other: Weight 65.771 kg PHYSICAL EXAMINATION: Patient is lying in the bed comfortably, no acute distress, awake alert and oriented.. HEENT: Normocephalic. Neck is supple. Pupils reactive. Nostrils clear. Oral cavity is moist. Neck reveals no JVD, carotid bruits, or thyromegaly. CHEST EXAMINATION: Trachea is central. Symmetrical expansion. Bibasilar diminished sounds. No wheezing or rhonchi.. CARDIAC: Normal S1, S2 with no gallops. No murmurs ABDOMEN: Soft. Bowel sounds normal. No organomegaly. No abdominal bruits. Extremities: Bilateral lower extremity trace edema. No clubbing or cyanosis Neurologically awake, alert, oriented x3 with well-coordinated movements. No focal deficits noted Skin: No rash or skin lesions. Psychiatric: Coperative. Nonsuicidal Musculoskeletal: No joint swelling or deformity. Results CBC & Chem 7: 09/04/24 02:07 09/04/24 02:07 Labs: Abnormal Lab Results - Last 24 Hours (Table) 09/04/24 09/04/24 09/04/24 Range/Units 02:07 02:07 06:24 RBC 3.51 L (3.80-5.40) m/uL Hgb 10.7 L (11.4-16.0) gm/dL RDW 17.2 H (11.5-15.5) % Sodium 134 L (137-145) mmol/L Potassium 6.2 H* (3.5-5.1) mmol/L BUN 74 H (7-17) mg/dL Creatinine 7.58 H* (0.52-1.04) mg/dL POC Glucose (mg/dL) 266 H (70-110) mg/dL Calcium 8.2 L (8.4-10.2) mg/dL AST 147 H (14-36) U/L ALT 196 H (4-34) U/L Alkaline Phosphatase 138 H (38-126) U/L Thrombosis Risk Factor Assmnt - DVT/VTE Prophylaxis DVT/VTE Prophylaxis: Pharmacologic Prophylaxis ordered Assessment and Plan Assessment: Hypertensive emergency requiring nitroglycerin drip Acute hypoxic respiratory failure due to pulmonary edema/volume overload. Requiring BiPAP on admission. Currently transition to nasal cannula Elevated liver enzymes ESRD on hemodialysis Wednesday and Wednesday Hyperkalemia secondary to CKD Hypertension Diabetes type 1 History of CVA/TIA History of optic neuritis Hypothyroidism Anxiety/depression DVT prophylaxis with heparin subcu Plan: Patient is currently on nitro drip which is being weaned off in the MICU. Started back on home medications. Patient was given a dose of calcium gluconate and insulin D50/insulin 10 units for hyperkalemia. Nephrology is planning for hemodialysis today. Continue with oxygen supplementation and follow-up closely. GI and DVT prophylaxis. Time with Patient: Greater than 30
[2024-09-04 15:05] LABS: Potassium 6.1 mmol/L (3.5-5.1)
[2024-09-04 15:26] LABS: HCG,Qualitative Serum Not Detected
[2024-09-04] MEDS: CLEVIDIPINE BUTYRATE 25 MG in EMPTY BAG 1 BAG IV SCH (19:59)
[2024-09-04] MEDS: HEPARIN SODIUM,PORCINE 5,000 UNIT/ML 1 ML VIAL SQ SCH (20:32)
[2024-09-04] MEDS: ATORVASTATIN 40 MG TAB PO SCH (20:32)
[2024-09-04] MEDS: HYDROcodone/APAP 7.5-325MG 1 EACH TAB PO PRN (20:44)
[2024-09-04] MEDS: FOLIC ACID-VIT B COMPLEX-VIT C 1 CAP PO SCH (20:58)
[2024-09-04] MEDS: SEVELAMER 800 MG TAB PO SCH (20:58)
[2024-09-04] MEDS: MELATONIN 1 MG TAB PO SCH (20:58)
[2024-09-05 05:28] LABS: Glucose,Whole Blood 586 mg/dL (70-110)
[2024-09-05] MEDS ORDERED: DEXTROSE 50% SYRINGE 50 ML IVP PRN ×2 (05:30)
[2024-09-05] MEDS: ONDANSETRON 4 MG TAB PO PRN (05:39)
[2024-09-05] MEDS: INSULIN ASPART (NovoLOG) 100 UNIT/ML VIAL SQ ONE ×2 (05:39→08:16)
[2024-09-05 06:07] LABS: Anisocytosis Slight; Basophils # (A) 0.1 k/uL (0-0.2); Basophils % (A) 1 %; Eosinophils # (A) 0.5 k/uL (0-0.7); Eosinophils % (A) 4 %; HCT 33.6 % (34.0-46.0); HGB 10.5 gm/dL (11.4-16.0); Hypochromasia Moderate; Lymphocytes # (A) 0.9 k/uL (1.0-4.8); Lymphocytes % (A) 7 %; MCHC 31.2 g/dL (31.0-37.0); Macrocytosis Moderate; Mean Platelet Volume 9.6; Monocytes # (A) 0.3 k/uL (0-1.0); Monocytes % (A) 2 %; Neutrophils # (A) 10.6 k/uL (1.3-7.7); Neutrophils % (A) 85 %; Platelet Count 341 k/uL (150-450); RBC 3.28 m/uL (3.80-5.40); RDW 17.1 % (11.5-15.5); WBC 12.4 k/uL (3.8-10.6)
[2024-09-05 06:28] LABS: Glucose,Whole Blood 500 mg/dL (70-110)
[2024-09-05 06:33] LABS: ALT 139 U/L (4-34); AST 68 U/L (14-36); African American GFR (CKD) 12 (>60 ml/min/1.73 sqM); Albumin 4.6 g/dL (3.5-5.0); Alkaline Phosphatase 168 U/L (38-126); Anion Gap 25 mmol/L; Blood Urea Nitrogen 39 mg/dL (7-17); Calcium 8.4 mg/dL (8.4-10.2); Carbon Dioxide 17 mmol/L (22-30); Chloride 87 mmol/L (98-107); Non-African American GFR(CKD) 10 (>60 ml/min/1.73 sqM); Potassium 5.9 mmol/L (3.5-5.1); Sodium 129 mmol/L (137-145); Total Bilirubin 0.9 mg/dL (0.2-1.3); Total Protein 6.7 g/dL (6.3-8.2)
[2024-09-05 06:38] LABS: Glucose 611 mg/dL (74-99); MCV 102.4 fL (80.0-100.0)
[2024-09-05] MEDS: INSULIN ASPART (NovoLOG) 100 UNIT/ML VIAL SQ SCH (06:39)
[2024-09-05] MEDS: INSULIN DETEMIR (LEVEMIR) 100 UNIT/ML SYR SQ SCH (06:42)
[2024-09-05 07:33] LABS: Glucose,Whole Blood 480 mg/dL (70-110)
[2024-09-05] MEDS: LEVOTHYROXINE 88 MCG TAB PO SCH (08:13)
[2024-09-05 09:23] LABS: Glucose,Whole Blood 246 mg/dL (70-110)
--- NOTE | 2024-09-05 10:12 | P.PN ---
Subjective Patient is seen in follow-up for end-stage renal disease. Tolerated 4 L ultrafiltration yesterday. Cleviprex being decreased. Overall feels better today. Vital signs are stable. General: No acute distress. HEENT: Head exam is unremarkable. On nasal cannula. LUNGS: No audible rhonchi or wheezes. HEART: Rate and Rhythm are regular. ABDOMEN: Nontender. EXTREMITITES: Trace edema. Objective - Vital Signs Vital signs: Vital Signs Temp 97.5 F L 09/05/24 08:00 Pulse 93 09/05/24 09:00 Resp 17 09/05/24 09:00 BP 149/88 09/05/24 09:00 Pulse Ox 97 09/05/24 09:00 FiO2 40 09/04/24 02:07 Intake & Output 09/04/24 09/05/24 09/05/24 18:59 06:59 18:59 Intake Total 1601.075 486.467 110.567 Output Total 8400 0 0 Balance -6798.925 486.467 110.567 Weight 75.1 kg Intake: Intake, IV Titration 661.075 286.467 80.567 Amount Calcium Gluconate in NaCl 100 1 gm In Saline 1 100ml. bag @ 100 mls/hr IVPB ONCE ONE Rx#:[id number] Clevidipine Butyrate 25 66.467 20.567 mg In Empty Bag 1 bag @ 1 MG/HR 2 mls/hr IV .Q24H [facility] Rx#:[id number] Nitroglycerin-D5w Pmx 50 361.075 mg In Dextrose/Water 1 250ml.bag @ 50 MCG/MIN 15 mls/hr IV .[id number] ONE Rx#:[id number] Sodium Chloride 0.9% 1, 200 220 60 000 ml @ 20 mls/hr IV . Q24H [facility] Rx#:[id number] Oral 540 200 30 Hemodialysis 400 Output: Urine 0 0 Hemodialysis 4400 Hemodialysis Net Amount 4000 - Labs CBC & Chem 7: 09/05/24 05:33 09/05/24 05:33 Labs: Abnormal Lab Results - Last 24 Hours (Table) 09/04/24 09/05/24 09/05/24 Range/Units 14:05 05:26 05:33 WBC 12.4 H (3.8-10.6) k/uL RBC 3.28 L (3.80-5.40) m/uL Hgb 10.5 L (11.4-16.0) gm/dL Hct 33.6 L (34.0-46.0) % MCV 102.4 H D (80.0-100.0) fL RDW 17.1 H (11.5-15.5) % Neutrophils # 10.6 H (1.3-7.7) k/uL Lymphocytes # 0.9 L (1.0-4.8) k/uL Sodium (137-145) mmol/L Potassium 6.1 H* (3.5-5.1) mmol/L Chloride (98-107) mmol/L Carbon Dioxide (22-30) mmol/L BUN (7-17) mg/dL Creatinine (0.52-1.04) mg/dL Glucose (74-99) mg/dL POC Glucose (mg/dL) 586 H* (70-110) mg/dL AST (14-36) U/L ALT (4-34) U/L Alkaline Phosphatase (38-126) U/L 09/05/24 09/05/24 09/05/24 Range/Units 05:33 06:26 07:32 WBC (3.8-10.6) k/uL RBC (3.80-5.40) m/uL Hgb (11.4-16.0) gm/dL Hct (34.0-46.0) % MCV (80.0-100.0) fL RDW (11.5-15.5) % Neutrophils # (1.3-7.7) k/uL Lymphocytes # (1.0-4.8) k/uL Sodium 129 L (137-145) mmol/L Potassium 5.9 H (3.5-5.1) mmol/L Chloride 87 L (98-107) mmol/L Carbon Dioxide 17 L (22-30) mmol/L BUN 39 H (7-17) mg/dL Creatinine 5.20 H (0.52-1.04) mg/dL Glucose 611 H* (74-99) mg/dL POC Glucose (mg/dL) 500 H 480 H (70-110) mg/dL AST 68 H (14-36) U/L ALT 139 H (4-34) U/L Alkaline Phosphatase 168 H (38-126) U/L 09/05/24 Range/Units 09:22 WBC (3.8-10.6) k/uL RBC (3.80-5.40) m/uL Hgb (11.4-16.0) gm/dL Hct (34.0-46.0) % MCV (80.0-100.0) fL RDW (11.5-15.5) % Neutrophils # (1.3-7.7) k/uL Lymphocytes # (1.0-4.8) k/uL Sodium (137-145) mmol/L Potassium (3.5-5.1) mmol/L Chloride (98-107) mmol/L Carbon Dioxide (22-30) mmol/L BUN (7-17) mg/dL Creatinine (0.52-1.04) mg/dL Glucose (74-99) mg/dL POC Glucose (mg/dL) 246 H (70-110) mg/dL AST (14-36) U/L ALT (4-34) U/L Alkaline Phosphatase (38-126) U/L Assessment and Plan Plan: Assessment: 1. End-stage renal disease maintained on hemodialysis on Wednesday. 2. Acute hypoxic respiratory failure currently on nasal cannula. 3. Hypertensive emergency. 4. Chronic kidney disease mineral bone disease maintained on Renvela. 5. Hyperkalemia secondary to chronic kidney disease and hyperglycemia. Entresto also noted on medication list. 6. Type 1 diabetes mellitus. 7. Volume overload. Improved with ultrafiltration. 8. Hypertonic hyponatremia secondary to hyperglycemia. 9. Metabolic acidosis secondary to hyperglycemia. Plan: Hemodialysis today. Challenge ultrafiltration. Blood glucose control.
[2024-09-05 10:29] LABS: Potassium 4.7 mmol/L (3.5-5.1)
[2024-09-05 12:20] LABS: Glucose,Whole Blood 56 mg/dL (70-110)
[2024-09-05 13:13] LABS: Glucose,Whole Blood 76 mg/dL (70-110)
--- NOTE | 2024-09-05 13:16 | P.PN ---
Subjective Progress Note Date: 09/05/24 Principal diagnosis: Tensive emergency with pulmonary edema This is a 34-year-old female, familiar to my service, I have seen this patient multiple times previously for similar admissions mostly admission secondary to hypertensive emergency and pulmonary edema. Patient had this similar presentation today, she is maintained on hemodialysis for end-stage renal disease and she is supposed to be getting dialysis Wednesday and Wednesday. Patient denies missing any dialysis treatments, however she came into the ER around 11 PM last night complaining of increased shortness of breath. Patient required placement on BiPAP, and her blood pressure was extremely elev ated in the 180 range systolic chest x-ray showed evidence of pulmonary edema, patient was placed on nitroglycerin drip, and she is to be dialyzed today by nephrology, patient will be admitted to the ICU, hence this consult was initiated. During my evaluation, patient was on nasal cannula, did not seem to be in any distress, however she was still on nitroglycerin drip, blood pressure was still elevated patient is on multiple medications for hypertension including hydralazine, clonidine, amlodipine, labetalol, and now she is on nitroglycerin drip. Again her chest x-ray showed evidence of pulmonary edema CBC is relatively unremarkable with WC count of 9.2 hemoglobin 10.7. Electrolytes are abnormal with potassium of 6.2 her bicarb is normal BUN is 74 creatinine 7.58 GFR is only 70 BNP level was over 58,000. Liver enzymes were also noted to be a bit elevated. Patient was seen today on 09/05/2024, remains in the ICU, on 3 L nasal cannula, not in distress. Blood pressure remains elevated, yesterday she was placed on Cleviprex and her nitroglycerin was discontinued. She is doing well, she had 4 L of fluids removed yesterday via dialysis and for plan to be removed today. Patient is comfortable, not in distress, no headache no blurred vision no dizziness no cough no wheezing no chest pain. She feels generally weak. WBC count today is 12.4 hemoglobin 10.5 electrolytes are normal BUN is 39 creatinine 5.20. Sugar was high, patient was given insulin, she may require insulin drip if she continues to have significantly elevated blood sugars. Objective - Vital Signs Vital signs: Vital Signs Temp 97.5 F L 09/05/24 08:00 Pulse 90 09/05/24 10:15 Resp 15 09/05/24 10:15 BP 146/89 09/05/24 10:15 Pulse Ox 99 09/05/24 10:15 FiO2 40 09/04/24 02:07 Intake & Output 09/04/24 09/05/24 09/05/24 18:59 06:59 18:59 Intake Total 1601.075 486.467 132.000 Output Total 8400 0 0 Balance -6798.925 486.467 132.000 Weight 75.1 kg 70.17 kg Intake: Intake, IV Titration 661.075 286.467 102.000 Amount Calcium Gluconate in NaCl 100 1 gm In Saline 1 100ml. bag @ 100 mls/hr IVPB ONCE ONE Rx#:[id number] Clevidipine Butyrate 25 66.467 22.000 mg In Empty Bag 1 bag @ 1 MG/HR 2 mls/hr IV .Q24H [facility] Rx#:[id number] Nitroglycerin-D5w Pmx 50 361.075 mg In Dextrose/Water 1 250ml.bag @ 50 MCG/MIN 15 mls/hr IV .[id number] ONE Rx#:[id number] Sodium Chloride 0.9% 1, 200 220 80 000 ml @ 20 mls/hr IV . Q24H [facility] Rx#:[id number] Oral 540 200 30 Hemodialysis 400 Output: Urine 0 0 Hemodialysis 4400 Hemodialysis Net Amount 4000 - Exam GENERAL EXAM: Alert, 34-year-old female, on 3 L nasal cannula HEAD: Normocephalic. EYES: Normal reaction of pupils, equal size. NOSE: Clear with pink turbinates. THROAT: No erythema or exudates. NECK: No masses, no JVD. CHEST: Clear bilaterally no rhonchi no wheezes LUNGS: Fine crackles at the bases. No rhonchi no wheezes. CVS: S1 and S2 normal with no audible murmur, regular rhythm. ABDOMEN: No hepatosplenomegaly, normal bowel sounds, no guarding or rigidity. SKIN: No rashes CENTRAL NERVOUS SYSTEM: No focal deficits, tone is normal in all 4 extremities. EXTREMITIES: There is no peripheral edema. No clubbing, no cyanosis. Peripheral pulses are intact. - Labs CBC & Chem 7: 09/05/24 05:33 09/05/24 09:35 Labs: Abnormal Lab Results - Last 24 Hours (Table) 09/04/24 09/05/24 09/05/24 Range/Units 14:05 05:26 05:33 WBC 12.4 H (3.8-10.6) k/uL RBC 3.28 L (3.80-5.40) m/uL Hgb 10.5 L (11.4-16.0) gm/dL Hct 33.6 L (34.0-46.0) % MCV 102.4 H D (80.0-100.0) fL RDW 17.1 H (11.5-15.5) % Neutrophils # 10.6 H (1.3-7.7) k/uL Lymphocytes # 0.9 L (1.0-4.8) k/uL Sodium (137-145) mmol/L Potassium 6.1 H* (3.5-5.1) mmol/L Chloride (98-107) mmol/L Carbon Dioxide (22-30) mmol/L BUN (7-17) mg/dL Creatinine (0.52-1.04) mg/dL Glucose (74-99) mg/dL POC Glucose (mg/dL) 586 H* (70-110) mg/dL AST (14-36) U/L ALT (4-34) U/L Alkaline Phosphatase (38-126) U/L 09/05/24 09/05/24 09/05/24 Range/Units 05:33 06:26 07:32 WBC (3.8-10.6) k/uL RBC (3.80-5.40) m/uL Hgb (11.4-16.0) gm/dL Hct (34.0-46.0) % MCV (80.0-100.0) fL RDW (11.5-15.5) % Neutrophils # (1.3-7.7) k/uL Lymphocytes # (1.0-4.8) k/uL Sodium 129 L (137-145) mmol/L Potassium 5.9 H (3.5-5.1) mmol/L Chloride 87 L (98-107) mmol/L Carbon Dioxide 17 L (22-30) mmol/L BUN 39 H (7-17) mg/dL Creatinine 5.20 H (0.52-1.04) mg/dL Glucose 611 H* (74-99) mg/dL POC Glucose (mg/dL) 500 H 480 H (70-110) mg/dL AST 68 H (14-36) U/L ALT 139 H (4-34) U/L Alkaline Phosphatase 168 H (38-126) U/L 09/05/24 09/05/24 09/05/24 Range/Units 09:22 09:35 12:18 WBC (3.8-10.6) k/uL RBC (3.80-5.40) m/uL Hgb (11.4-16.0) gm/dL Hct (34.0-46.0) % MCV (80.0-100.0) fL RDW (11.5-15.5) % Neutrophils # (1.3-7.7) k/uL Lymphocytes # (1.0-4.8) k/uL Sodium 131 L (137-145) mmol/L Potassium (3.5-5.1) mmol/L Chloride 94 L (98-107) mmol/L Carbon Dioxide (22-30) mmol/L BUN (7-17) mg/dL Creatinine (0.52-1.04) mg/dL Glucose (74-99) mg/dL POC Glucose (mg/dL) 246 H 56 L (70-110) mg/dL AST (14-36) U/L ALT (4-34) U/L Alkaline Phosphatase (38-126) U/L Assessment and Plan Assessment: Impression Acute hypoxemic respiratory failure secondary to an acute episode of pulmonary edema and fluid volume overload significantly improved after dialysis Hypertensive urgency, still tapering her Cleviprex now she is on 1 mg/h and will likely discontinue in the next hour End-stage renal disease requiring hemodialysis 4 times per week Hyperkalemia secondary to above Diabetes mellitus, insulin-dependent Anemia of chronic disease History of CVA/TIA History of optic neuritis Hypothyroidism History of depression Recommendation Continue present supportive care measures Taper and discontinue Cleviprex Continue oral meds for hypertension Continue hemodialysis Transfer to cardiac floor once the patient is off Cleviprex Continue hemodialysis Will continue to follow. Time with Patient: Less than 30
[2024-09-05 15:07] LABS: Glucose,Whole Blood 125 mg/dL (70-110)
[2024-09-05] MEDS: ONDANSETRON 4 MG/2 ML VIAL IVP PRN (17:07)
[2024-09-05 17:33] LABS: Glucose,Whole Blood 122 mg/dL (70-110)
[2024-09-05 20:08] LABS: Glucose,Whole Blood 244 mg/dL (70-110)
[2024-09-05] MEDS: BUTALB/APAP/CAFF 50-325-40MG TAB PO PRN (20:30)
[2024-09-06 05:35] LABS: Glucose,Whole Blood 61 mg/dL (70-110)
[2024-09-06 06:04] LABS: Glucose,Whole Blood 90 mg/dL (70-110)
--- NOTE | 2024-09-06 09:40 | P.PN ---
Subjective Patient is seen in follow-up for end-stage renal disease. Tolerated 4 L ultrafiltration yesterday. Cleviprex discontinued. No vomiting this morning. Vital signs are stable. General: No acute distress. HEENT: Head exam is unremarkable. On nasal cannula. LUNGS: No audible rhonchi or wheezes. HEART: Rate and Rhythm are regular. ABDOMEN: Nontender. EXTREMITITES: No edema. Objective - Vital Signs Vital signs: Vital Signs Temp 98.2 F 09/06/24 04:00 Pulse 75 09/06/24 04:00 Resp 12 09/06/24 04:00 BP 152/91 09/06/24 04:00 Pulse Ox 94 L 09/06/24 08:28 FiO2 40 09/04/24 02:07 Intake & Output 09/05/24 09/06/24 09/06/24 18:59 06:59 18:59 Intake Total 1492.000 120 Output Total 8940 0 Balance -7448.000 120 Weight 67.2 kg Intake: Intake, IV Titration 102.000 20 Amount Clevidipine Butyrate 25 22.000 mg In Empty Bag 1 bag @ 1 MG/HR 2 mls/hr IV .Q24H [facility] Rx#:[id number] Sodium Chloride 0.9% 1, 80 20 000 ml @ 20 mls/hr IV . Q24H [facility] Rx#:[id number] Oral 640 100 Hemodialysis 750 Output: Urine 0 0 Emesis 150 Hemodialysis 4770 Hemodialysis Net Amount 4020 Other: # Voids 1 # Bowel Movements 0 - Labs CBC & Chem 7: 09/05/24 05:33 09/05/24 09:35 Labs: Abnormal Lab Results - Last 24 Hours (Table) 09/05/24 09/05/24 09/05/24 Range/Units 09:35 12:18 15:06 Sodium 131 L (137-145) mmol/L Chloride 94 L (98-107) mmol/L POC Glucose (mg/dL) 56 L 125 H (70-110) mg/dL 09/05/24 09/05/24 09/06/24 Range/Units 16:34 20:07 05:33 Sodium (137-145) mmol/L Chloride (98-107) mmol/L POC Glucose (mg/dL) 122 H 244 H 61 L (70-110) mg/dL Assessment and Plan Plan: Assessment: 1. End-stage renal disease maintained on hemodialysis on Wednesday T wednesday. 2. Acute hypoxic respiratory failure currently on nasal cannula. 3. Hypertensive emergency. Improved. 4. Chronic kidney disease mineral bone disease maintained on Renvela. 5. Hyperkalemia secondary to chronic kidney disease and hyperglycemia. Entresto also noted on medication list. 6. Type 1 diabetes mellitus. 7. Volume overload. Improved with ultrafiltration. 8. Hypertonic hyponatremia secondary to hyperglycemia. 9. Metabolic acidosis secondary to hyperglycemia. Improved postdialysis. Plan: Hemodialysis tomorrow. Blood glucose control. Patient had white streaks noted in the clotted venous chamber yesterday. This can be from hyperlipidemia or possibly from Cleviprex. Follow-up lipid panel.
[2024-09-06 10:52] LABS: Chol/HDL Ratio 1.97 Ratio; LDL Cholesterol,Calculated 53.1 mg/dL (0.0-131.0); VLDL Calculation 10.98 mg/dL (5.00-40.00)
--- NOTE | 2024-09-06 11:13 | P.PN ---
Subjective Progress Note Date: 09/05/24 Patient is a 34-year-old female with a past medical history of hypertension, diabetes type 1, ESRD on hemodialysis/4 times a week., Seizure disorder and hypothyroidism and also history of gastroparesis and chronic pain, anxiety/depression. Patient presents to ER with complaints of shortness of breath. Patient states that she had last hemodialysis on Wednesday. She has been doing well until 11 PM and started having shortness of breath and rapidly worsening. EMS was called and patient was transported to ER. Patient was placed on BiPAP and wrote. She was also having chest tightness along with horacio rtness of breath. Denied any worsening swelling in the legs. No fever no chills. No nausea vomiting or diarrhea. No headache or dizziness. Chest x-ray showed findings consistent with CHF exacerbation/fluid overload state. EKG showed sinus tachycardia with heart rate 105 Laboratory test showed WBC 9.2 hemoglobin 10.7 and platelets 374 Sodium 134 potassium 6.2 with slight hemolysis Chloride 98 bicarb is 25 BUN 74 and creatinine 7.58 and blood sugar 266. Lactic acid 1.0 AST 147 ALT 196 and alk phos 138, troponin 0.012 and proBNP 58,200. Patient's blood pressure was 171/120 pulse 111 respiration 24 on admission. Patient was started on nitro drip in the ER. 09/05/2024 Patient is in the MICU. Currently requiring 3 L oxygen via nasal cannula. No complaints of chest pain. Complains of shortness of breath. Also complains of nausea. No close of vomiting. Patient is also being continued on Cleviprex drip. Nitroglycerin drip has been discontinued. Patient is currently undergoing hemodialysis and planning for 4Lultrafiltration. Blood pressure is also poorly controlled with SBP in 140s. Laboratory showed WBC 12.4 hemoglobin 10.5 and platelets 341 sodium 129 potassium 5.9 chloride 87 bicarb is 17 BUN 39 creatinine 5.1 blood sugar 611 AST 68 ALT is 139 alk phos 168. Critical care team and nephrology is on board. Current medications reviewed. Objective - Vital Signs Vital signs: Vital Signs Temp 98.0 F 09/05/24 20:00 Pulse 82 09/05/24 21:00 Resp 10 L 09/05/24 21:00 BP 178/102 09/05/24 21:00 Pulse Ox 94 L 09/05/24 21:00 FiO2 40 09/04/24 02:07 Intake & Output 09/05/24 09/05/24 09/06/24 06:59 18:59 06:59 Intake Total 804.041 0967.000 Output Total 0 8940 0 Balance 486.467 -7448.000 0 Weight 70.17 kg Intake: Intake, IV Titration 286.467 102.000 Amount Clevidipine Butyrate 25 66.467 22.000 mg In Empty Bag 1 bag @ 1 MG/HR 2 mls/hr IV .Q24H [facility] Rx#:[id number] Sodium Chloride 0.9% 1, 220 80 000 ml @ 20 mls/hr IV . Q24H [facility] Rx#:[id number] Oral 200 640 Hemodialysis 750 Output: Urine 0 0 0 Emesis 150 Hemodialysis 4770 Hemodialysis Net Amount 4020 Other: # Bowel Movements 0 - Exam PHYSICAL EXAMINATION: Patient is lying in the bed comfortably, no acute distress, awake alert and oriented.. HEENT: Normocephalic. Neck is supple. Pupils reactive. Nostrils clear. Oral cavity is moist. Neck reveals no JVD, carotid bruits, or thyromegaly. CHEST EXAMINATION: Trachea is central. Symmetrical expansion. Bibasilar d iminished sounds. No wheezing or rhonchi.. CARDIAC: Normal S1, S2 with no gallops. No murmurs ABDOMEN: Soft. Bowel sounds normal. No organomegaly. No abdominal bruits. Extremities: Bilateral lower extremity trace edema. No clubbing or cyanosis Neurologically awake, alert, oriented x3 with well-coordinated movements. No focal deficits noted Skin: No rash or skin lesions. Psychiatric: Coperative. Nonsuicidal Musculoskeletal: No joint swelling or deformity. - Labs CBC & Chem 7: 09/05/24 05:33 09/05/24 09:35 Labs: Abnormal Lab Results - Last 24 Hours (Table) 09/05/24 09/05/24 09/05/24 Range/Units 05:26 05:33 05:33 WBC 12.4 H (3.8-10.6) k/uL RBC 3.28 L (3.80-5.40) m/uL Hgb 10.5 L (11.4-16.0) gm/dL Hct 33.6 L (34.0-46.0) % MCV 102.4 H D (80.0-100.0) fL RDW 17.1 H (11.5-15.5) % Neutrophils # 10.6 H (1.3-7.7) k/uL Lymphocytes # 0.9 L (1.0-4.8) k/uL Sodium 129 L (137-145) mmol/L Potassium 5.9 H (3.5-5.1) mmol/L Chloride 87 L (98-107) mmol/L Carbon Dioxide 17 L (22-30) mmol/L BUN 39 H (7-17) mg/dL Creatinine 5.20 H (0.52-1.04) mg/dL Glucose 611 H* (74-99) mg/dL POC Glucose (mg/dL) 586 H* (70-110) mg/dL AST 68 H (14-36) U/L ALT 139 H (4-34) U/L Alkaline Phosphatase 168 H (38-126) U/L 09/05/24 09/05/24 09/05/24 Range/Units 06:26 07:32 09:22 WBC (3.8-10.6) k/uL RBC (3.80-5.40) m/uL Hgb (11.4-16.0) gm/dL Hct (34.0-46.0) % MCV (80.0-100.0) fL RDW (11.5-15.5) % Neutrophils # (1.3-7.7) k/uL Lymphocytes # (1.0-4.8) k/uL Sodium (137-145) mmol/L Potassium (3.5-5.1) mmol/L Chloride (98-107) mmol/L Carbon Dioxide (22-30) mmol/L BUN (7-17) mg/dL Creatinine (0.52-1.04) mg/dL Glucose (74-99) mg/dL POC Glucose (mg/dL) 500 H 480 H 246 H (70-110) mg/dL AST (14-36) U/L ALT (4-34) U/L Alkaline Phosphatase (38-126) U/L 09/05/24 09/05/24 09/05/24 Range/Units 09:35 12:18 15:06 WBC (3.8-10.6) k/uL RBC (3.80-5.40) m/uL Hgb (11.4-16.0) gm/dL Hct (34.0-46.0) % MCV (80.0-100.0) fL RDW (11.5-15.5) % Neutrophils # (1.3-7.7) k/uL Lymphocytes # (1.0-4.8) k/uL Sodium 131 L (137-145) mmol/L Potassium (3.5-5.1) mmol/L Chloride 94 L (98-107) mmol/L Carbon Dioxide (22-30) mmol/L BUN (7-17) mg/dL Creatinine (0.52-1.04) mg/dL Glucose (74-99) mg/dL POC Glucose (mg/dL) 56 L 125 H (70-110) mg/dL AST (14-36) U/L ALT (4-34) U/L Alkaline Phosphatase (38-126) U/L 09/05/24 09/05/24 Range/Units 16:34 20:07 WBC (3.8-10.6) k/uL RBC (3.80-5.40) m/uL Hgb (11.4-16.0) gm/dL Hct (34.0-46.0) % MCV (80.0-100.0) fL RDW (11.5-15.5) % Neutrophils # (1.3-7.7) k/uL Lymphocytes # (1.0-4.8) k/uL Sodium (137-145) mmol/L Potassium (3.5-5.1) mmol/L Chloride (98-107) mmol/L Carbon Dioxide (22-30) mmol/L BUN (7-17) mg/dL Creatinine (0.52-1.04) mg/dL Glucose (74-99) mg/dL POC Glucose (mg/dL) 122 H 244 H (70-110) mg/dL AST (14-36) U/L ALT (4-34) U/L Alkaline Phosphatase (38-126) U/L Assessment and Plan Assessment: Hypertensive emergency requiring nitroglycerin drip. Currently off. Acute hypoxic respiratory failure due to pulmonary edema/volume overload. Requiring BiPAP on admission. Currently transition to nasal cannula Elevated liver enzymes ESRD on hemodialysis Wednesday and Wednesday Hyperkalemia secondary to CKD Hypertension Diabetes type 1 History of CVA/TIA History of optic neuritis Hypothyroidism Anxiety/depression DVT prophylaxis with heparin subcu Plan: Patient is in MICU. Nitro drip off. Patient is on Cleviprex. Started back on home blood pressure medications. Continue to titrate doses. Hemodialysis today and he is planning for 4 L ultrafiltration. Patient was started insulin to be 2 hyperglycemia. Continue with oxygen supplementation and follow-up closely. GI and DVT prophylaxis. Time with Patient: Greater than 30
[2024-09-06 11:56] LABS: Glucose,Whole Blood 308 mg/dL (70-110)
--- NOTE | 2024-09-06 13:19 | P.PN ---
Subjective Progress Note Date: 09/06/24 Principal diagnosis: Hypertensive emergency with pulmonary edema This is a 34-year-old female, familiar to my service, I have seen this patient multiple times previously for similar admissions mostly admission secondary to hypertensive emergency and pulmonary edema. Patient had this similar presentation today, she is maintained on hemodialysis for end-stage renal disease and she is supposed to be getting dialysis Wednesday and Wednesday. Patient denies missing any dialysis treatments, however she came into the ER around 11 PM last night complaining of increased shortness of breath. Patient required placement on BiPAP, and her blood pressure was extremely elevated in the 180 range systolic chest x-ray showed evidence of pulmonary edema, patient was placed on nitroglycerin drip, and she is to be dialyzed today by nephrology, patient will be admitted to the ICU, hence this consult was initiated. During my evaluation, patient was on nasal cannula, did not seem to be in any distress, however she was still on nitroglycerin drip, blood pressure was still elevated patient is on multiple medications for hypertension including hydralazine, clonidine, amlodipine, labetalol, and now she is on nitroglycerin drip. Again her chest x-ray showed evidence of pulmonary edema CBC is relatively unremarkable with WC count of 9.2 hemoglobin 10.7. Electrolytes are abnormal with potassium of 6.2 her bicarb is normal BUN is 74 creatinine 7.58 GFR is only 70 BNP level was over 58,000. Liver enzymes were also noted to be a bit elevated. Patient was seen today on 09/05/2024, remains in the ICU, on 3 L nasal cannula, not in distress. Blood pressure remains elevated, yesterday she was placed on Cleviprex and her nitroglycerin was discontinued. She is doing well, she had 4 L of fluids removed yesterday via dialysis and for plan to be removed today. Patient is comfortable, not in distress, no headache no blurred vision no dizziness no cough no wheezing no chest pain. She feels generally weak. WBC count today is 12.4 hemoglobin 10.5 electrolytes are normal BUN is 39 creatinine 5.20. Sugar was high, patient was given insulin, she may require insulin drip if she continues to have significantly elevated blood sugars. Patient was seen today on 09/06/2024, patient is off all the drips that she received for hypertensive emergency she is maintained on oral medications, doing well, asymptomatic, patient is on room air, not in any distress, and I plan to transfer the patient to a regular medical floor today. Blood sugar is 308 and her phosphorus is 6.9 Objective - Vital Signs Vital signs: Vital Signs Temp 98.6 F 09/06/24 08:00 Pulse 86 09/06/24 10:00 Resp 12 09/06/24 10:00 BP 162/93 09/06/24 10:00 Pulse Ox 100 09/06/24 10:00 FiO2 40 09/04/24 02:07 Intake & Output 09/05/24 09/06/24 09/06/24 18:59 06:59 18:59 Intake Total 1492.000 120 300 Output Total 8940 0 0 Balance -7448.000 120 300 Weight 67.2 kg Intake: IV 60 Sodium Chloride 0.9% 1, 60 000 ml @ 20 mls/hr IV . Q24H [facility] Rx#:[id number] Intake, IV Titration 102.000 20 Amount Clevidipine Butyrate 25 22.000 mg In Empty Bag 1 bag @ 1 MG/HR 2 mls/hr IV .Q24H [facility] Rx#:[id number] Sodium Chloride 0.9% 1, 80 20 000 ml @ 20 mls/hr IV . Q24H [facility] Rx#:[id number] Oral 640 100 Tube Feeding 240 Hemodialysis 750 Output: Urine 0 0 0 Emesis 150 Hemodialysis 4770 Hemodialysis Net Amount 4020 Other: # Voids 1 # Bowel Movements 0 - Exam GENERAL EXAM: Alert, 34-year-old female, on room air HEAD: Normocephalic. EYES: Normal reaction of pupils, equal size. NOSE: Clear with pink turbinates. THROAT: No erythema or exudates. NECK: No masses, no JVD. CHEST: Clear bilaterally no rhonchi no wheezes LUNGS: Fine crackles at the bases. No rhonchi no wheezes. CVS: S1 and S2 normal with no audible murmur, regular rhythm. ABDOMEN: No hepatosplenomegaly, normal bowel sounds, no guarding or rigidity. SKIN: No rashes CENTRAL NERVOUS SYSTEM: No focal deficits, tone is normal in all 4 extremities. EXTREMITIES: There is no peripheral edema. No clubbing, no cyanosis. Peripheral pulses are intact. - Labs CBC & Chem 7: 09/05/24 05:33 09/05/24 09:35 Labs: Abnormal Lab Results - Last 24 Hours (Table) 09/05/24 09/05/24 09/05/24 Range/Units 15:06 16:34 20:07 POC Glucose (mg/dL) 125 H 122 H 244 H (70-110) mg/dL Hemoglobin A1c (<=6.0) % Phosphorus (2.5-4.5) mg/dL HDL Cholesterol (40.00-60.00) mg/dL 09/06/24 09/06/24 09/06/24 Range/Units 05:33 06:02 06:02 POC Glucose (mg/dL) 61 L (70-110) mg/dL Hemoglobin A1c 8.3 H (<=6.0) % Phosphorus (2.5-4.5) mg/dL HDL Cholesterol 65.90 H (40.00-60.00) mg/dL 09/06/24 09/06/24 Range/Units 06:02 11:52 POC Glucose (mg/dL) 308 H (70-110) mg/dL Hemoglobin A1c (<=6.0) % Phosphorus 6.9 H (2.5-4.5) mg/dL HDL Cholesterol (40.00-60.00) mg/dL Assessment and Plan Assessment: Impression Acute hypoxemic respiratory failure secondary to an acute episode of pulmonary edema and fluid volume overload significantly improved after dialysis Hypertensive urgency, still tapering her Cleviprex now she is on 1 mg/h and will likely discontinue in the next hour End-stage renal disease requiring hemodialysis 4 times per week Hyperkalemia secondary to above Diabetes mellitus, insulin-dependent Anemia of chronic disease History of CVA/TIA History of optic neuritis Hypothyroidism History of depression Recommendation Continue present supportive care measures Transfer patient to medical surgical floor Continue oral meds for hypertension Continue hemodialysis as felt necessary by nephrology Will continue to follow. Time with Patient: Less than 30
[2024-09-06 16:43] LABS: Glucose,Whole Blood 115 mg/dL (70-110)
[2024-09-06] MEDS: METOCLOPRAMIDE 5 MG TAB PO PRN (17:09)
[2024-09-06 21:11] LABS: Glucose,Whole Blood 365 mg/dL (70-110)
[2024-09-07 03:56] LABS: Anisocytosis Slight; Basophils # (A) 0.1 k/uL (0-0.2); Basophils % (A) 1 %; Eosinophils # (A) 0.5 k/uL (0-0.7); Eosinophils % (A) 5 %; HCT 30.6 % (34.0-46.0); HGB 9.1 gm/dL (11.4-16.0); Hypochromasia Marked; Lymphocytes # (A) 0.8 k/uL (1.0-4.8); Lymphocytes % (A) 8 %; MCH 30.3 pg (25.0-35.0); MCHC 29.7 g/dL (31.0-37.0); MCV 101.7 fL (80.0-100.0); Macrocytosis Moderate; Mean Platelet Volume 8.3; Monocytes # (A) 0.3 k/uL (0-1.0); Monocytes % (A) 3 %; Neutrophils # (A) 7.5 k/uL (1.3-7.7); Neutrophils % (A) 81 %; Platelet Count 308 k/uL (150-450); RBC 3.01 m/uL (3.80-5.40); RDW 17.1 % (11.5-15.5); WBC 9.2 k/uL (3.8-10.6)
[2024-09-07 04:26] LABS: African American GFR (CKD) 9 (>60 ml/min/1.73 sqM); Anion Gap 12 mmol/L; Blood Urea Nitrogen 39 mg/dL (7-17); Calcium 8.3 mg/dL (8.4-10.2); Carbon Dioxide 23 mmol/L (22-30); Chloride 91 mmol/L (98-107); Glucose 228 mg/dL (74-99); Non-African American GFR(CKD) 8 (>60 ml/min/1.73 sqM); Phosphorus 7.2 mg/dL (2.5-4.5); Potassium 4.4 mmol/L (3.5-5.1); Sodium 126 mmol/L (137-145)
[2024-09-07 06:48] LABS: Glucose,Whole Blood 241 mg/dL (70-110)
[2024-09-07] MEDS: INSULIN ASPART (NovoLOG) 100 UNIT/ML VIAL SQ SCH (07:08)
--- NOTE | 2024-09-07 11:41 | P.PN ---
Subjective Patient is seen in follow-up for end-stage renal disease. Tolerating dialysis well. Still having nausea and vomiting. Vital signs are stable. General: No acute distress. HEENT: Head exam is unremarkable. On nasal cannula. LUNGS: No audible rhonchi or wheezes. HEART: Rate and Rhythm are regular. ABDOMEN: Nontender. EXTREMITITES: No edema. Objective - Vital Signs Vital signs: Vital Signs Temp 98.1 F 09/07/24 08:00 Pulse 93 09/07/24 08:00 Resp 18 09/06/24 16:11 BP 191/104 09/07/24 08:00 Pulse Ox 99 09/07/24 08:00 FiO2 40 09/04/24 02:07 Intake & Output 09/06/24 09/07/24 09/07/24 18:59 06:59 18:59 Intake Total 300 Output Total 200 Balance 100 Weight 67.7 kg Intake: IV 60 Sodium Chloride 0.9% 1, 60 000 ml @ 20 mls/hr IV . Q24H [facility] Rx#:[id number] Tube Feeding 240 Output: Urine 0 Emesis 200 Other: Voiding Method Toilet # Voids 2 - Labs CBC & Chem 7: 09/07/24 03:33 09/07/24 03:33 Labs: Abnormal Lab Results - Last 24 Hours (Table) 09/06/24 09/06/24 09/06/24 Range/Units 11:52 16:42 21:09 RBC (3.80-5.40) m/uL Hgb (11.4-16.0) gm/dL Hct (34.0-46.0) % MCV (80.0-100.0) fL MCHC (31.0-37.0) g/dL RDW (11.5-15.5) % Lymphocytes # (1.0-4.8) k/uL Sodium (137-145) mmol/L Chloride (98-107) mmol/L BUN (7-17) mg/dL Creatinine (0.52-1.04) mg/dL Glucose (74-99) mg/dL POC Glucose (mg/dL) 308 H 115 H 365 H (70-110) mg/dL Calcium (8.4-10.2) mg/dL Phosphorus (2.5-4.5) mg/dL 1009/07/24 09/07/24 Range/Units 03:33 03:33 06:46 RBC 3.01 L (3.80-5.40) m/uL Hgb 9.1 L (11.4-16.0) gm/dL Hct 30.6 L (34.0-46.0) % MCV 101.7 H (80.0-100.0) fL MCHC 29.7 L (31.0-37.0) g/dL RDW 17.1 H (11.5-15.5) % Lymphocytes # 0.8 L (1.0-4.8) k/uL Sodium 126 L (137-145) mmol/L Chloride 91 L (98-107) mmol/L BUN 39 H (7-17) mg/dL Creatinine 6.19 H (0.52-1.04) mg/dL Glucose 228 H (74-99) mg/dL POC Glucose (mg/dL) 241 H (70-110) mg/dL Calcium 8.3 L (8.4-10.2) mg/dL Phosphorus 7.2 H (2.5-4.5) mg/dL Assessment and Plan Plan: Assessment: 1. End-stage renal disease maintained on hemodialysis on Wednesday. 2. Acute hypoxic respiratory failure currently on nasal cannula. 3. Hypertensive emergency. Improved. 4. Chronic kidney disease mineral bone disease maintained on Renvela. 5. Hyperkalemia secondary to chronic kidney disease and hyperglycemia. Entresto also noted on medication list. 6. Type 1 diabetes mellitus. 7. Volume overload. Improved with ultrafiltration. 8. Hypertonic hyponatremia secondary to hyperglycemia. 9. Metabolic acidosis secondary to hyperglycemia. Improved postdialysis. Plan: Currently seen while undergoing hemodialysis. Blood glucose control.
[2024-09-07 11:42] LABS: Glucose,Whole Blood 74 mg/dL (70-110)
--- NOTE | 2024-09-07 12:04 | P.PN ---
Subjective Progress Note Date: 09/07/24 This is a 34-year-old female, familiar to my service, I have seen this patient multiple times previously for similar admissions mostly admission secondary to hypertensive emergency and pulmonary edema. Patient had this similar presentation today, she is maintained on hemodialysis for end-stage renal dise ase and she is supposed to be getting dialysis Wednesday and Wednesday. Patient denies missing any dialysis treatments, however she came into the ER around 11 PM last night complaining of increased shortness of breath. Patient required placement on BiPAP, and her blood pressure was extremely elevated in the 180 range systolic chest x-ray showed evidence of pulmonary edema, patient was placed on nitroglycerin drip, and she is to be dialyzed today by nephrology, patient will be admitted to the ICU, hence this consult was initiated. During my evaluation, patient was on nasal cannula, did not seem to be in any distress, however she was still on nitroglycerin drip, blood pressure was still elevated patient is on multiple medications for hypertension including hydralazine, clonidine, amlodipine, labetalol, and now she is on nitroglycerin drip. Again her chest x-ray showed evidence of pulmonary edema CBC is relatively unremarkable with WC count of 9.2 hemoglobin 10.7. Electrolytes are abnormal with potassium of 6.2 her bicarb is normal BUN is 74 creatinine 7.58 GFR is only 70 BNP level was over 58,000. Liver enzymes were also noted to be a bit elevated. Patient was seen today on 09/05/2024, remains in the ICU, on 3 L nasal cannula, not in distress. Blood pressure remains elevated, yesterday she was placed on Cleviprex and her nitroglycerin was discontinued. She is doing well, she had 4 L of fluids removed yesterday via dialysis and for plan to be removed today. Patient is comfortable, not in distress, no headache no blurred vision no dizziness no cough no wheezing no chest pain. She feels generally weak. WBC count today is 12.4 hemoglobin 10.5 electrolytes are normal BUN is 39 creatinine 5.20. Sugar was high, patient was given insulin, she may require insulin drip if she continues to have significantly elevated blood sugars. Patient was seen today on 09/06/2024, patient is off all the drips that she received for hypertensive emergency she is maintained on oral medications, doing well, asymptomatic, patient is on room air, not in any distress, and I plan to transfer the patient to a regular medical floor today. Blood sugar is 308 and her phosphorus is 6.9 The patient is seen today September 07, 2024 in follow-up on the regular medical floor. She is currently resting in bed. Awake and alert in no acute distress. Receiving hemodialysis today with a goal of 4 L to be removed. She is maintaining O2 saturations in the 90s on 3 L/min per nasal cannula. She still has ongoing issues with nausea. White count 9.2. Hemoglobin 9.1. Platelets 308. Sodium 126. Potassium 4.4. Bicarb 23. BUN 39. Creatinine 6.19. Glucose 228. She remains somewhat hypertensive. She remains on multiple antihypertensive medications. Objective - Vital Signs Vital signs: Vital Signs Temp 98.1 F 09/07/24 08:00 Pulse 93 09/07/24 08:00 Resp 18 09/06/24 16:11 BP 191/104 09/07/24 08:00 Pulse Ox 99 09/07/24 08:00 FiO2 40 09/04/24 02:07 Intake & Output 09/06/24 09/07/24 09/07/24 18:59 06:59 18:59 Intake Total 300 Output Total 200 Balance 100 Weight 67.7 kg Intake: IV 60 Sodium Chloride 0.9% 1, 60 000 ml @ 20 mls/hr IV . Q24H [facility] Rx#:[id number] Tube Feeding 240 Output: Urine 0 Emesis 200 Other: Voiding Method Toilet # Voids 2 - Exam GENERAL EXAM: Alert, weak 34-year-old female, on 3 L/min per nasal cannula, no acute distress. HEAD: Normocephalic. EYES: Normal reaction of pupils, equal size. NOSE: Clear with pink turbinates. THROAT: No erythema or exudates. NECK: No masses, no JVD. CHEST: No chest wall deformity. Dialysis catheter on the right LUNGS: Fine crackles at the bases. No rhonchi no wheezes. CVS: S1 and S2 normal with no audible murmur, regular rhythm. ABDOMEN: No hepatosplenomegaly, normal bowel sounds, no guarding or rigidity. SKIN: No rashes CENTRAL NERVOUS SYSTEM: No focal deficits, tone is normal in all 4 extremities. EXTREMITIES: There is no peripheral edema. No clubbing, no cyanosis. Periphe ral pulses are intact. - Labs CBC & Chem 7: 09/07/24 03:33 09/07/24 03:33 Labs: Abnormal Lab Results - Last 24 Hours (Table) 09/06/24 09/06/24 09/06/24 Range/Units 11:52 16:42 21:09 RBC (3.80-5.40) m/uL Hgb (11.4-16.0) gm/dL Hct (34.0-46.0) % MCV (80.0-100.0) fL MCHC (31.0-37.0) g/dL RDW (11.5-15.5) % Lymphocytes # (1.0-4.8) k/uL Sodium (137-145) mmol/L Chloride (98-107) mmol/L BUN (7-17) mg/dL Creatinine (0.52-1.04) mg/dL Glucose (74-99) mg/dL POC Glucose (mg/dL) 308 H 115 H 365 H (70-110) mg/dL Calcium (8.4-10.2) mg/dL Phosphorus (2.5-4.5) mg/dL 09/07/24 09/07/24 09/07/24 Range/Units 03:33 03:33 06:46 RBC 3.01 L (3.80-5.40) m/uL Hgb 9.1 L (11.4-16.0) gm/dL Hct 30.6 L (34.0-46.0) % MCV 101.7 H (80.0-100.0) fL MCHC 29.7 L (31.0-37.0) g/dL RDW 17.1 H (11.5-15.5) % Lymphocytes # 0.8 L (1.0-4.8) k/uL Sodium 126 L (137-145) mmol/L Chloride 91 L (98-107) mmol/L BUN 39 H (7-17) mg/dL Creatinine 6.19 H (0.52-1.04) mg/dL Glucose 228 H (74-99) mg/dL POC Glucose (mg/dL) 241 H (70-110) mg/dL Calcium 8.3 L (8.4-10.2) mg/dL Phosphorus 7.2 H (2.5-4.5) mg/dL Assessment and Plan Assessment: Acute hypoxemic respiratory failure secondary to an acute episode of pulmonary edema and fluid volume overload significantly improved after dialysis Hypertensive urgency, still tapering her Cleviprex now she is on 1 mg/h and will likely discontinue in the next hour End-stage renal disease requiring hemodialysis 4 times per week Hyperkalemia secondary to above Diabetes mellitus, insulin-dependent Anemia of chronic disease History of CVA/TIA History of optic neuritis Hypothyroidism History of depression Plan: The patient was seen and evaluated Labs and medications reviewed Currently receiving hemodialysis today Still requiring multiple antihypertensive medications Titrate down the FiO2 as tolerated We will continue to follow I have personally seen and examined the patient, performed the documentation and the assessment and plan as written. Number of minutes spent on the visit: 10 Dictation was produced using [employer] dictation software. Please excuse any grammatical, word or spelling errors..
[2024-09-07] MEDS: hydrALAZINE HCL 20 MG/ML 1 ML VIAL IVP PRN (12:28)
[2024-09-07 16:56] LABS: Glucose,Whole Blood 88 mg/dL (70-110)
[2024-09-07 21:09] LABS: Glucose,Whole Blood 327 mg/dL (70-110)
[2024-09-08 06:33] LABS: Glucose,Whole Blood 122 mg/dL (70-110)
[2024-09-08] MEDS: FAMOTIDINE 20 MG TAB PO SCH (09:10)
[2024-09-08 09:37] LABS: BUN/Creat Ratio 3.83 Ratio (12.00-20.00); Blood Urea Nitrogen 17.6 mg/dL (9.0-27.0); Calcium 9.2 mg/dL (8.7-10.3); Carbon Dioxide 26.8 mmol/L (21.6-31.8); Chloride 92 mmol/L (96-109); Glucose 142 mg/dL (70-110); Potassium 4.1 mmol/L (3.5-5.5); Sodium 134 mmol/L (135-145)
--- NOTE | 2024-09-08 10:55 | P.PN ---
Subjective Patient is seen in follow-up for end-stage renal disease. Tolerated 4 L ultrafiltration yesterday. Still nauseated. Vital signs are stable. General: No acute distress. HEENT: Head exam is unremarkable. On nasal cannula. LUNGS: No audible rhonchi or wheezes. HEART: Rate and Rhythm are regular. ABDOMEN: Nontender. EXTREMITITES: No edema. Objective - Vital Signs Vital signs: Vital Signs Temp 98.0 F 09/08/24 07:25 Pulse 84 09/08/24 07:25 Resp 18 09/08/24 07:25 BP 183/97 09/08/24 07:25 Pulse Ox 95 09/08/24 07:25 FiO2 40 09/04/24 02:07 Intake & Output 09/07/24 09/08/24 09/08/24 18:59 06:59 18:59 Output Total 0 Balance 0 Output: Urine 0 Other: Voiding Method Toilet - Labs CBC & Chem 7: 09/07/24 03:33 09/08/24 03:55 Labs: Abnormal Lab Results - Last 24 Hours (Table) 09/07/24 09/08/24 09/08/24 Range/Units 21:08 03:55 06:32 Sodium 134 L (135-145) mmol/L Chloride 92 L (96-109) mmol/L Anion Gap 15.20 H (4.00-12.00) mmol/L Creatinine 4.6 H (0.6-1.5) mg/dL Est GFR (CKD-EPI) 12 L (>=60) BUN/Creatinine Ratio 3.83 L (12.00-20.00) Ratio Glucose 142 H (70-110) mg/dL POC Glucose (mg/dL) 327 H 122 H (70-110) mg/dL Assessment and Plan Plan: Assessment: 1. End-stage renal disease maintained on hemodialysis on Wednesday. 2. Acute hypoxic respiratory failure currently on nasal cannula. 3. Hypertensive emergency. Improved. 4. Chronic kidney disease mineral bone disease maintained on Renvela. 5. Hyperkalemia secondary to chronic kidney disease and hyperglycemia. Entresto also noted on medication list. 6. Type 1 diabetes mellitus. 7. Volume overload. Improved with ultrafiltration. 8. Hypertonic hyponatremia secondary to hyperglycemia. Improved. 9. Metabolic acidosis secondary to hyperglycemia. Improved postdialysis. Plan: Hemodialysis tomorrow. Blood glucose control. Increased dose of labetalol.
--- NOTE | 2024-09-08 11:36 | P.PN ---
Subjective Progress Note Date: 09/06/24 Patient is a 34-year-old female with a past medical history of hypertension, diabetes type 1, ESRD on hemodialysis/4 times a week., Seizure disorder and hypothyroidism and also history of gastroparesis and chronic pain, anxiety/depression. Patient presents to ER with complaints of shortness of breath. Patient states that she had last hemodialysis on Wednesday. She has been doing well until 11 PM and started having shortness of breath and rapidly worsening. EMS was called and patient was transported to ER. Patient was placed on BiPAP and wrote. She was also having chest tightness along with horacio rtness of breath. Denied any worsening swelling in the legs. No fever no chills. No nausea vomiting or diarrhea. No headache or dizziness. Chest x-ray showed findings consistent with CHF exacerbation/fluid overload state. EKG showed sinus tachycardia with heart rate 105 Laboratory test showed WBC 9.2 hemoglobin 10.7 and platelets 374 Sodium 134 potassium 6.2 with slight hemolysis Chloride 98 bicarb is 25 BUN 74 and creatinine 7.58 and blood sugar 266. Lactic acid 1.0 AST 147 ALT 196 and alk phos 138, troponin 0.012 and proBNP 58,200. Patient's blood pressure was 171/120 pulse 111 respiration 24 on admission. Patient was started on nitro drip in the ER. 09/05/2024 Patient is in the MICU. Currently requiring 3 L oxygen via nasal cannula. No complaints of chest pain. Complains of shortness of breath. Also complains of nausea. No close of vomiting. Patient is also being continued on Cleviprex drip. Nitroglycerin drip has been discontinued. Patient is currently undergoing hemodialysis and planning for 4Lultrafiltration. Blood pressure is also poorly controlled with SBP in 140s. Laboratory showed WBC 12.4 hemoglobin 10.5 and platelets 341 sodium 129 potassium 5.9 chloride 87 bicarb is 17 BUN 39 creatinine 5.1 blood sugar 611 AST 68 ALT is 139 alk phos 168. Critical care team and nephrology is on board. 09/06/2024 Patient is here in the MICU. Still complains of pain. Shortness of breath is much improved. Blood pressure is also better. Nitroglycerin drip has been discontinued. Patient is currently on room air. Underwent hemodialysis yesterday. Nephrology and critical care team on board. Patient is being transferred to medical floor today. Blood sugar is elevated to 308 this morning. Started on insulin regimen and titrate dose as needed. Other laborato ry data showed A1c 8.3 phosphorus 6.9 sodium 131 and potassium 4.7 and chloride 94. Current medications reviewed. Objective - Vital Signs Vital signs: Vital Signs Temp 98.6 F 09/06/24 08:00 Pulse 86 09/06/24 10:00 Resp 12 09/06/24 10:00 BP 162/93 09/06/24 10:00 Pulse Ox 100 09/06/24 10:00 FiO2 40 09/04/24 02:07 Intake & Output 09/05/24 09/06/24 09/06/24 18:59 06:59 18:59 Intake Total 1492.000 120 300 Output Total 8940 0 0 Balance -7448.000 120 300 Weight 67.2 kg Intake: IV 60 Sodium Chloride 0.9% 1, 60 000 ml @ 20 mls/hr IV . Q24H VY Rx#:[id number] Intake, IV Titration 102.000 20 Amount Clevidipine Butyrate 25 22.000 mg In Empty Bag 1 bag @ 1 MG/HR 2 mls/hr IV .Q24H VY Rx#:[id number] Sodium Chloride 0.9% 1, 80 20 000 ml @ 20 mls/hr IV . Q24H VY Rx#:[id number] Oral 640 100 Tube Feeding 240 Hemodialysis 750 Output: Urine 0 0 0 Emesis 150 Hemodialysis 4770 Hemodialysis Net Amount 4020 Other: # Voids 1 # Bowel Movements 0 - Exam PHYSICAL EXAMINATION: Patient is lying in the bed comfortably, no acute distress, awake alert and oriented.. HEENT: Normocephalic. Neck is supple. Pupils reactive. Nostrils clear. Oral cavity is moist. Neck reveals no JVD, carotid bruits, or thyromegaly. CHEST EXAMINATION: Trachea is central. Symmetrical expansion. Bibasilar diminished sounds. No wheezing or rhonchi.. CARDIAC: Normal S1, S2 with no gallops. No murmurs ABDOMEN: Soft. Bowel sounds normal. No organomegaly. No abdominal bruits. Extremities: Bilateral lower extremity trace edema. No clubbing or cyanosis Neurologically awake, alert, oriented x3 with well-coordinated movements. No focal deficits noted Skin: No rash or skin lesions. Psychiatric: Coperative. Nonsuicidal Musculoskeletal: No joint swelling or deformity. - Labs CBC & Chem 7: 09/07/24 03:33 09/08/24 03:55 Labs: Abnormal Lab Results - Last 24 Hours (Table) 09/05/24 09/05/24 09/05/24 Range/Units 12:18 15:06 16:34 POC Glucose (mg/dL) 56 L 125 H 122 H (70-110) mg/dL Hemoglobin A1c (<=6.0) % Phosphorus (2.5-4.5) mg/dL HDL Cholesterol (40.00-60.00) mg/dL 09/05/24 09/06/24 09/06/24 Range/Units 20:07 05:33 06:02 POC Glucose (mg/dL) 244 H 61 L (70-110) mg/dL Hemoglobin A1c 8.3 H (<=6.0) % Phosphorus (2.5-4.5) mg/dL HDL Cholesterol (40.00-60.00) mg/dL 09/06/24 09/06/24 Range/Units 06:02 06:02 POC Glucose (mg/dL) (70-110) mg/dL Hemoglobin A1c (<=6.0) % Phosphorus 6.9 H (2.5-4.5) mg/dL HDL Cholesterol 65.90 H (40.00-60.00) mg/dL Assessment and Plan Assessment: Hypertensive emergency requiring nitroglycerin drip. Currently off nitro drip.. Acute hypoxic respiratory failure due to pulmonary edema/volume overload. Requiring BiPAP on admission. Currently transition to room air. Elevated liver enzymes ESRD on hemodialysis Wednesday and Wednesday Hyperkalemia secondary to CKD Hypertension Diabetes type 1 History of CVA/TIA History of optic neuritis Hypothyroidism Anxiety/depression DVT prophylaxis with heparin subcu Plan: Patient is in MICU. Cleviprex drip and nitro drip has been discontinued. Patient is currently on room air.. Started back on home blood pressure medications. Continue to titrate doses. Hemodialysis as per schedule. 4 times per week. Patient was started insulin drip due to hypoglycemia. Currently changed to Levemir 12 units twice daily and insulin sliding scale. Continue with oxygen supplementation and follow-up closely. GI and DVT prophylaxis. Time with Patient: Greater than 30
--- NOTE | 2024-09-08 11:44 | P.PN ---
Subjective Progress Note Date: 09/07/24 Patient is a 34-year-old female with a past medical history of hypertension, diabetes type 1, ESRD on hemodialysis/4 times a week., Seizure disorder and hypothyroidism and also history of gastroparesis and chronic pain, anxiety/depression. Patient presents to ER with complaints of shortness of breath. Patient states that she had last hemodialysis on Wednesday. She has been doing well until 11 PM and started having shortness of breath and rapidly worsening. EMS was called and patient was transported to ER. Patient was placed on BiPAP and wrote. She was also having chest tightness along with horacio rtness of breath. Denied any worsening swelling in the legs. No fever no chills. No nausea vomiting or diarrhea. No headache or dizziness. Chest x-ray showed findings consistent with CHF exacerbation/fluid overload state. EKG showed sinus tachycardia with heart rate 105 Laboratory test showed WBC 9.2 hemoglobin 10.7 and platelets 374 Sodium 134 potassium 6.2 with slight hemolysis Chloride 98 bicarb is 25 BUN 74 and creatinine 7.58 and blood sugar 266. Lactic acid 1.0 AST 147 ALT 196 and alk phos 138, troponin 0.012 and proBNP 58,200. Patient's blood pressure was 171/120 pulse 111 respiration 24 on admission. Patient was started on nitro drip in the ER. 09/05/2024 Patient is in the MICU. Currently requiring 3 L oxygen via nasal cannula. No complaints of chest pain. Complains of shortness of breath. Also complains of nausea. No close of vomiting. Patient is also being continued on Cleviprex drip. Nitroglycerin drip has been discontinued. Patient is currently undergoing hemodialysis and planning for 4Lultrafiltration. Blood pressure is also poorly controlled with SBP in 140s. Laboratory showed WBC 12.4 hemoglobin 10.5 and platelets 341 sodium 129 potassium 5.9 chloride 87 bicarb is 17 BUN 39 creatinine 5.1 blood sugar 611 AST 68 ALT is 139 alk phos 168. Critical care team and nephrology is on board. 09/06/2024 Patient is here in the MICU. Still complains of pain. Shortness of breath is much improved. Blood pressure is also better. Nitroglycerin drip has been discontinued. Patient is currently on room air. Underwent hemodialysis yesterday. Nephrology and critical care team on board. Patient is being transferred to medical floor today. Blood sugar is elevated to 308 this morning. Started on insulin regimen and titrate dose as needed. Other laborato ry data showed A1c 8.3 phosphorus 6.9 sodium 131 and potassium 4.7 and chloride 94. 09/07/2024 Patient is in the medical floor. Resting in the bed. Awake alert and oriented x 3. Patient is getting hemodialysis with 4 L goal of ultrafiltration. Patient is currently room air. No complaints of chest pain or worsening shortness of breath. Patient still complaining of pain and nausea. Improved with medications. Blood pressure is still elevated today afternoon. Nephrology and pulmonary is on board. Laboratory data showed WBC 9 point hemoglobin 9.1 and platelets 308 sodium 126 potassium 4.4 chloride 191 bicarb is 23 BUN 13 and creatinine was 6.19 and blood sugar 228 and phosphorus 7.2. Current medications reviewed. Objective - Vital Signs Vital signs: Vital Signs Temp 97.5 F L 09/07/24 19:57 Pulse 87 09/07/24 19:57 Resp 17 09/07/24 14:00 BP 189/98 09/07/24 19:57 Pulse Ox 98 09/07/24 19:57 FiO2 40 09/04/24 02:07 Intake & Output 09/07/24 09/07/24 09/08/24 06:59 18:59 06:59 Output Total 0 Balance 0 Output: Urine 0 Other: Voiding Method Toilet Toilet - Exam PHYSICAL EXAMINATION: Patient is lying in the bed , no acute distress, awake alert and oriented.. HEENT: Normocephalic. Neck is supple. Pupils reactive. Nostrils clear. Oral cavity is moist. Neck reveals no JVD, carotid bruits, or thyromegaly. CHEST EXAMINATION: Trachea is central. Symmetrical expansion. Bibasilar diminished sounds. No wheezing or rhonchi.. CARDIAC: Normal S1, S2 with no gallops. No murmurs ABDOMEN: Soft. Bowel sounds normal. No organomegaly. No abdominal bruits. Extremities: Bilateral lower extremity trace edema. No clubbing or cyanosis Neurologically awake, alert, oriented x3 with well-coordinated movements. No focal deficits noted Skin: No rash or skin lesions. Psychiatric: Coperative. Nonsuicidal Musculoskeletal: No joint swelling or deformity. - Labs CBC & Chem 7: 09/07/24 03:33 09/08/24 03:55 Labs: Abnormal Lab Results - Last 24 Hours (Table) 09/07/24 09/07/24 09/07/24 Range/Units 03:33 03:33 06:46 RBC 3.01 L (3.80-5.40) m/uL Hgb 9.1 L (11.4-16.0) gm/dL Hct 30.6 L (34.0-46.0) % MCV 101.7 H (80.0-100.0) fL MCHC 29.7 L (31.0-37.0) g/dL RDW 17.1 H (11.5-15.5) % Lymphocytes # 0.8 L (1.0-4.8) k/uL Sodium 126 L (137-145) mmol/L Chloride 91 L (98-107) mmol/L BUN 39 H (7-17) mg/dL Creatinine 6.19 H (0.52-1.04) mg/dL Glucose 228 H (74-99) mg/dL POC Glucose (mg/dL) 241 H (70-110) mg/dL Calcium 8.3 L (8.4-10.2) mg/dL Phosphorus 7.2 H (2.5-4.5) mg/dL 09/07/24 Range/Units 21:08 RBC (3.80-5.40) m/uL Hgb (11.4-16.0) gm/dL Hct (34.0-46.0) % MCV (80.0-100.0) fL MCHC (31.0-37.0) g/dL RDW (11.5-15.5) % Lymphocytes # (1.0-4.8) k/uL Sodium (137-145) mmol/L Chloride (98-107) mmol/L BUN (7-17) mg/dL Creatinine (0.52-1.04) mg/dL Glucose (74-99) mg/dL POC Glucose (mg/dL) 327 H (70-110) mg/dL Calcium (8.4-10.2) mg/dL Phosphorus (2.5-4.5) mg/dL Assessment and Plan Assessment: Hypertensive emergency requiring nitroglycerin drip. Currently off nitro drip.. Acute hypoxic respiratory failure due to pulmonary edema/volume overload. Requiring BiPAP on admission. Currently transition to room air. Elevated liver enzymes on admission. ESRD on hemodialysis Wednesday and Wednesday Hyperkalemia secondary to CKD Hypertension Diabetes type 1 History of CVA/TIA History of optic neuritis Hypothyroidism Anxiety/depression DVT prophylaxis with heparin subcu Plan: Patient is in MICU. Cleviprex drip and nitro drip has been discontinued. Patient is currently on room air.. Started back on home blood pressure medications. Continue to titrate doses. Hemodialysis as per schedule. 4 times per week. Hemodialysis today. Patient was started insulin drip due to hypoglycemia. Currently changed to Le vemir 12 units twice daily and insulin sliding scale. Started on NovoLog 3 units 3 times daily AC. Symptomatic management for nausea and continued pain management. Continue with oxygen supplementation and follow-up closely. GI and DVT prophylaxis. Time with Patient: Greater than 30
[2024-09-08 11:52] LABS: Glucose,Whole Blood 99 mg/dL (70-110)
--- NOTE | 2024-09-08 11:58 | P.PN ---
Subjective Progress Note Date: 09/08/24 This is a 34-year-old female, familiar to my service, I have seen this patient multiple times previously for similar admissions mostly admission secondary to hypertensive emergency and pulmonary edema. Patient had this similar presentation today, she is maintained on hemodialysis for end-stage renal dise ase and she is supposed to be getting dialysis Wednesday and Wednesday. Patient denies missing any dialysis treatments, however she came into the ER around 11 PM last night complaining of increased shortness of breath. Patient required placement on BiPAP, and her blood pressure was extremely elevated in the 180 range systolic chest x-ray showed evidence of pulmonary edema, patient was placed on nitroglycerin drip, and she is to be dialyzed today by nephrology, patient will be admitted to the ICU, hence this consult was initiated. During my evaluation, patient was on nasal cannula, did not seem to be in any distress, however she was still on nitroglycerin drip, blood pressure was still elevated patient is on multiple medications for hypertension including hydralazine, clonidine, amlodipine, labetalol, and now she is on nitroglycerin drip. Again her chest x-ray showed evidence of pulmonary edema CBC is relatively unremarkable with WC count of 9.2 hemoglobin 10.7. Electrolytes are abnormal with potassium of 6.2 her bicarb is normal BUN is 74 creatinine 7.58 GFR is only 70 BNP level was over 58,000. Liver enzymes were also noted to be a bit elevated. Patient was seen today on 09/05/2024, remains in the ICU, on 3 L nasal cannula, not in distress. Blood pressure remains elevated, yesterday she was placed on Cleviprex and her nitroglycerin was discontinued. She is doing well, she had 4 L of fluids removed yesterday via dialysis and for plan to be removed today. Patient is comfortable, not in distress, no headache no blurred vision no dizziness no cough no wheezing no chest pain. She feels generally weak. WBC count today is 12.4 hemoglobin 10.5 electrolytes are normal BUN is 39 creatinine 5.20. Sugar was high, patient was given insulin, she may require insulin drip if she continues to have significantly elevated blood sugars. Patient was seen today on 09/06/2024, patient is off all the drips that she received for hypertensive emergency she is maintained on oral medications, doing well, asymptomatic, patient is on room air, not in any distress, and I plan to transfer the patient to a regular medical floor today. Blood sugar is 308 and her phosphorus is 6.9 The patient is seen today September 07, 2024 in follow-up on the regular medical floor. She is currently resting in bed. Awake and alert in no acute distress. Receiving hemodialysis today with a goal of 4 L to be removed. She is maintaining O2 saturations in the 90s on 3 L/min per nasal cannula. She still has ongoing issues with nausea. White count 9.2. Hemoglobin 9.1. Platelets 308. Sodium 126. Potassium 4.4. Bicarb 23. BUN 39. Creatinine 6.19. Glucose 228. She remains somewhat hypertensive. She remains on multiple antihypertensive medications. The patient is seen today September 08, 2024 in follow-up on the regular medical floor. She is currently sitting up at the bedside. Awake and alert in no acute distress. Still with some nausea. Maintaining good O2 saturations in the mid 90s on room air. She is afebrile. Still somewhat hypertensive. Sodium 134. Potassium 4.1. Bicarb 27. BUN 18. Creatinine 4.6. Glucose 142. She did tolerate 4 L of ultrafiltration yesterday. Plan is for dialysis tomorrow. Labetalol increased for blood pressure control. Jacqui on heparin for DVT prophylaxis. Objective - Vital Signs Vital signs: Vital Signs Temp 98.0 F 09/08/24 07:25 Pulse 84 09/08/24 07:25 Resp 18 09/08/24 07:25 BP 183/97 09/08/24 07:25 Pulse Ox 95 09/08/24 07:25 FiO2 40 09/04/24 02:07 Intake & Output 09/07/24 09/08/24 09/08/24 18:59 06:59 18:59 Output Total 0 Balance 0 Output: Urine 0 Other: Voiding Method Toilet - Exam GENERAL EXAM: Alert, weak 34-year-old female, sitting up at the bedside, on room air, no acute distress. HEAD: Normocephalic. EYES: Normal reaction of pupils, equal size. NOSE: Clear with pink turbinates. THROAT: No erythema or exudates. NECK: No masses, no JVD. CHEST: No chest wall deformity. Dialysis catheter on the right LUNGS: Fine crackles at the bases. No rhonchi no wheezes. CVS: S1 and S2 normal with no audible murmur, regular rhythm. ABDOMEN: No hepatosplenomegaly, normal bowel sounds, no guarding or rigidity. SKIN: No rashes CENTRAL NERVOUS SYSTEM: No focal deficits, tone is normal in all 4 extremities. EXTREMITIES: There is no peripheral edema. No clubbing, no cyanosis. Peripheral pulses are intact. - Labs CBC & Chem 7: 09/07/24 03:33 09/08/24 03:55 Labs: Abnormal Lab Results - Last 24 Hours (Table) 09/07/24 09/08/24 09/08/24 Range/Units 21:08 03:55 06:32 Sodium 134 L (135-145) mmol/L Chloride 92 L (96-109) mmol/L Anion Gap 15.20 H (4.00-12.00) mmol/L Creatinine 4.6 H (0.6-1.5) mg/dL Est GFR (CKD-EPI) 12 L (>=60) BUN/Creatinine Ratio 3.83 L (12.00-20.00) Ratio Glucose 142 H (70-110) mg/dL POC Glucose (mg/dL) 327 H 122 H (70-110) mg/dL Assessment and Plan Assessment: Acute hypoxemic respiratory failure secondary to an acute episode of pulmonary edema and fluid volume overload, significantly improved after dialysis Hypertensive urgency, improved, labetalol increased End-stage renal disease requiring hemodialysis 4 times per week Hyperkalemia secondary to above Diabetes mellitus, insulin-dependent Anemia of chronic disease History of CVA/TIA History of optic neuritis Hypothyroidism History of depression Plan: The patient was seen and evaluated Labs and medications reviewed Stable and on room air Plan is for hemodialysis tomorrow Labetalol increased today per nephrology This patient was seen independently by the pulmonary nurse practitioner addressing pulmonary issues I have personally seen and examined the patient, performed the documentation and the assessment and plan as written. Number of minutes spent on the visit: 24 Dictation was produced using [employer] dictation software. Please excuse any grammatical, word or spelling errors.
[2024-09-08] MEDS: SEVELAMER 800 MG TAB PO SCH (12:54)
[2024-09-08 16:30] LABS: Glucose,Whole Blood 114 mg/dL (70-110)
[2024-09-08 20:38] LABS: Glucose,Whole Blood 231 mg/dL (70-110)
[2024-09-08] MEDS: LABETALOL 200 MG TAB PO SCH (21:03)
--- NOTE | 2024-09-08 21:57 | P.PN ---
Subjective Progress Note Date: 09/08/24 Patient is a 34-year-old female with a past medical history of hypertension, diabetes type 1, ESRD on hemodialysis/4 times a week., Seizure disorder and hypothyroidism and also history of gastroparesis and chronic pain, anxiety/depression. Patient presents to ER with complaints of shortness of breath. Patient states that she had last hemodialysis on Wednesday. She has been doing well until 11 PM and started having shortness of breath and rapidly worsening. EMS was called and patient was transported to ER. Patient was placed on BiPAP and wrote. She was also having chest tightness along with horacio rtness of breath. Denied any worsening swelling in the legs. No fever no chills. No nausea vomiting or diarrhea. No headache or dizziness. Chest x-ray showed findings consistent with CHF exacerbation/fluid overload state. EKG showed sinus tachycardia with heart rate 105 Laboratory test showed WBC 9.2 hemoglobin 10.7 and platelets 374 Sodium 134 potassium 6.2 with slight hemolysis Chloride 98 bicarb is 25 BUN 74 and creatinine 7.58 and blood sugar 266. Lactic acid 1.0 AST 147 ALT 196 and alk phos 138, troponin 0.012 and proBNP 58,200. Patient's blood pressure was 171/120 pulse 111 respiration 24 on admission. Patient was started on nitro drip in the ER. 09/05/2024 Patient is in the MICU. Currently requiring 3 L oxygen via nasal cannula. No complaints of chest pain. Complains of shortness of breath. Also complains of nausea. No close of vomiting. Patient is also being continued on Cleviprex drip. Nitroglycerin drip has been discontinued. Patient is currently undergoing hemodialysis and planning for 4Lultrafiltration. Blood pressure is also poorly controlled with SBP in 140s. Laboratory showed WBC 12.4 hemoglobin 10.5 and platelets 341 sodium 129 potassium 5.9 chloride 87 bicarb is 17 BUN 39 creatinine 5.1 blood sugar 611 AST 68 ALT is 139 alk phos 168. Critical care team and nephrology is on board. 09/06/2024 Patient is here in the MICU. Still complains of pain. Shortness of breath is much improved. Blood pressure is also better. Nitroglycerin drip has been discontinued. Patient is currently on room air. Underwent hemodialysis yesterday. Nephrology and critical care team on board. Patient is being transferred to medical floor today. Blood sugar is elevated to 308 this morning. Started on insulin regimen and titrate dose as needed. Other laborato ry data showed A1c 8.3 phosphorus 6.9 sodium 131 and potassium 4.7 and chloride 94. 09/07/2024 Patient is in the medical floor. Resting in the bed. Awake alert and oriented x 3. Patient is getting hemodialysis with 4 L goal of ultrafiltration. Patient is currently room air. No complaints of chest pain or worsening shortness of breath. Patient still complaining of pain and nausea. Improved with medications. Blood pressure is still elevated today afternoon. Nephrology and pulmonary is on board. Laboratory data showed WBC 9 point hemoglobin 9.1 and platelets 308 sodium 126 potassium 4.4 chloride 191 bicarb is 23 BUN 13 and creatinine was 6.19 and blood sugar 228 and phosphorus 7.2. 09/08/2024 Patient is in the medical floor. Awake alert and oriented x 3. Still complains of nausea and generalized pain. Patient is also very oxygen via nasal cannula. Saturating at 90% on room air. Blood pressure is still elevated. Patient is scheduled for hemodialysis tomorrow. Laboratory data showed sodium 134 potassium 4.1 chloride 92 bicarb is 26.8 BUN 17.6 and creatinine 4.6 and blood sugar 142 and calcium 9.2. Patient has been afebrile. No headache or dizziness. No cough or sputum production. Nephrology and pulmonary is on board. Current medications reviewed. Objective - Vital Signs Vital signs: Vital Signs Temp 98.0 F 09/08/24 07:25 Pulse 84 09/08/24 07:25 Resp 18 09/08/24 07:25 BP 183/97 09/08/24 07:25 Pulse Ox 95 09/08/24 07:25 FiO2 40 09/04/24 02:07 Intake & Output 09/07/24 09/08/24 09/08/24 18:59 06:59 18:59 Output Total 0 Balance 0 Output: Urine 0 Other: Voiding Method Toilet - Exam PHYSICAL EXAMINATION: Patient is lying in the bed , no acute distress, awake alert and oriented.. HEENT: Normocephalic. Neck is supple. Pupils reactive. Nostrils clear. Oral cavity is moist. Neck reveals no JVD, carotid bruits, or thyromegaly. CHEST EXAMINATION: Trachea is central. Symmetrical expansion. Bibasilar diminished sounds. No wheezing or rhonchi.. CARDIAC: Normal S1, S2 with no gallops. No murmurs ABDOMEN: Soft. Bowel sounds normal. No organomegaly. No abdominal bruits. Extremities: Bilateral lower extremity trace edema. No clubbing or cyanosis Neurologically awake, alert, oriented x3 with well-coordinated movements. No focal deficits noted Skin: No rash or skin lesions. Psychiatric: Coperative. Nonsuicidal Musculoskeletal: No joint swelling or deformity. - Labs CBC & Chem 7: 09/07/24 03:33 09/08/24 03:55 Labs: Abnormal Lab Results - Last 24 Hours (Table) 09/07/24 09/08/24 09/08/24 Range/Units 21:08 03:55 06:32 Sodium 134 L (135-145) mmol/L Chloride 92 L (96-109) mmol/L Anion Gap 15.20 H (4.00-12.00) mmol/L Creatinine 4.6 H (0.6-1.5) mg/dL Est GFR (CKD-EPI) 12 L (>=60) BUN/Creatinine Ratio 3.83 L (12.00-20.00) Ratio Glucose 142 H (70-110) mg/dL POC Glucose (mg/dL) 327 H 122 H (70-110) mg/dL Assessment and Plan Assessment: Hypertensive emergency requiring nitroglycerin drip. Currently off nitro drip.. Acute hypoxic respiratory failure due to pulmonary edema/volume overload. Requiring BiPAP on admission. Currently transition to room air. Elevated liver enzymes on admission. ESRD on hemodialysis Wednesday and Wednesday Hyperkalemia secondary to CKD Hypertension uncontrolled Diabetes type 1 History of CVA/TIA History of optic neuritis Hypothyroidism Anxiety/depression DVT prophylaxis with heparin subcu Plan: Patient was transferred to medical floor. Currently on room air. Started back on home blood pressure medications. Continue to titrate doses. Blood pressure is elevated. Hemodialysis as per schedule. 4 times per week. Next hemodialysis tomorrow. Continue with Levemir 12 units twice daily and insulin sliding scale. Started on NovoLog 3 units 3 times daily AC. Symptomatic management for nausea and continued pain management. Continue with oxygen supplementation and follow-up closely. GI and DVT prophylaxis. Time with Patient: Greater than 30
[2024-09-09 07:45] LABS: Glucose,Whole Blood 72 mg/dL (70-110)
[2024-09-09 09:32] LABS: Basophils # (A) 0.06 X 10*3/uL (0.00-0.10); Basophils % (A) 0.8 %; Eosinophils # (A) 0.73 X 10*3/uL (0.04-0.35); Eosinophils % (A) 9.8 %; HCT 29.4 % (37.2-46.3); HGB 9.7 g/dL (12.0-15.0); Lymphocytes # (A) 1.05 X 10*3/uL (0.90-5.00); Lymphocytes % (A) 14.1 %; MCH 31.6 pg (27.0-32.0); MCV 95.8 FL (80.0-97.0); Mean Platelet Volume 10.9 FL (9.5-12.2); Monocytes # (A) 0.65 X 10*3/uL (0.20-1.00); Monocytes % (A) 8.7 %; NRBC Per 100 WBC 0 X 10*3/uL (0.00-0.01); Neutrophils # (A) 4.96 X 10*3/uL (1.80-7.70); Neutrophils % (A) 66.3 %; Platelet Count 300 X 10*3/uL (140-440); RBC 3.07 X 10*6/uL (4.10-5.20); RDW 16.5 % (11.5-14.5); WBC 7.47 X 10*3/uL (4.50-10.00)
[2024-09-09 09:34] LABS: BUN/Creat Ratio 3.61 Ratio (12.00-20.00); Blood Urea Nitrogen 23.8 mg/dL (9.0-27.0); Carbon Dioxide 24.6 mmol/L (21.6-31.8); Chloride 93 mmol/L (96-109); Glucose 109 mg/dL (70-110); Phosphorus 6.8 mg/dL (2.4-5.1); Potassium 4.5 mmol/L (3.5-5.5); Sodium 134 mmol/L (135-145)
--- NOTE | 2024-09-09 11:30 | P.PN ---
Subjective Progress Note Date: 09/09/24 This is a 34-year-old female, familiar to my service, I have seen this patient multiple times previously for similar admissions mostly admission secondary to hypertensive emergency and pulmonary edema. Patient had this similar presentation today, she is maintained on hemodialysis for end-stage renal dise ase and she is supposed to be getting dialysis Wednesday and Wednesday. Patient denies missing any dialysis treatments, however she came into the ER around 11 PM last night complaining of increased shortness of breath. Patient required placement on BiPAP, and her blood pressure was extremely elevated in the 180 range systolic chest x-ray showed evidence of pulmonary edema, patient was placed on nitroglycerin drip, and she is to be dialyzed today by nephrology, patient will be admitted to the ICU, hence this consult was initiated. During my evaluation, patient was on nasal cannula, did not seem to be in any distress, however she was still on nitroglycerin drip, blood pressure was still elevated patient is on multiple medications for hypertension including hydralazine, clonidine, amlodipine, labetalol, and now she is on nitroglycerin drip. Again her chest x-ray showed evidence of pulmonary edema CBC is relatively unremarkable with WC count of 9.2 hemoglobin 10.7. Electrolytes are abnormal with potassium of 6.2 her bicarb is normal BUN is 74 creatinine 7.58 GFR is only 70 BNP level was over 58,000. Liver enzymes were also noted to be a bit elevated. Patient was seen today on 09/05/2024, remains in the ICU, on 3 L nasal cannula, not in distress. Blood pressure remains elevated, yesterday she was placed on Cleviprex and her nitroglycerin was discontinued. She is doing well, she had 4 L of fluids removed yesterday via dialysis and for plan to be removed today. Patient is comfortable, not in distress, no headache no blurred vision no dizziness no cough no wheezing no chest pain. She feels generally weak. WBC count today is 12.4 hemoglobin 10.5 electrolytes are normal BUN is 39 creatinine 5.20. Sugar was high, patient was given insulin, she may require insulin drip if she continues to have significantly elevated blood sugars. Patient was seen today on 09/06/2024, patient is off all the drips that she received for hypertensive emergency she is maintained on oral medications, doing well, asymptomatic, patient is on room air, not in any distress, and I plan to transfer the patient to a regular medical floor today. Blood sugar is 308 and her phosphorus is 6.9 The patient is seen today September 07, 2024 in follow-up on the regular medical floor. She is currently resting in bed. Awake and alert in no acute distress. Receiving hemodialysis today with a goal of 4 L to be removed. She is maintaining O2 saturations in the 90s on 3 L/min per nasal cannula. She still has ongoing issues with nausea. White count 9.2. Hemoglobin 9.1. Platelets 308. Sodium 126. Potassium 4.4. Bicarb 23. BUN 39. Creatinine 6.19. Glucose 228. She remains somewhat hypertensive. She remains on multiple antihypertensive medications. The patient is seen today September 08, 2024 in follow-up on the regular medical floor. She is currently sitting up at the bedside. Awake and alert in no acute distress. Still with some nausea. Maintaining good O2 saturations in the mid 90s on room air. She is afebrile. Still somewhat hypertensive. Sodium 134. Potassium 4.1. Bicarb 27. BUN 18. Creatinine 4.6. Glucose 142. She did tolerate 4 L of ultrafiltration yesterday. Plan is for dialysis tomorrow. Labetalol increased for blood pressure control. Jacqui on heparin for DVT prophylaxis. The patient is seen today September 09, 2024 in follow-up on the regular medical floor. She is currently resting in bed. Awake and alert in no acute distress. Maintaining good O2 saturations in the 90s on room air. She is receiving hemodialysis with a goal of 3-1/2 to 4 L to be removed today. She did have issues with epistaxis last night and earlier this morning. She continues to have ongoing issues with hypertension. She has been afebrile. White count 7.4. Hemoglobin 9.7. Platelets 300. Sodium 134. Potassium 3.5. Bicarb 25. BUN 24. Creatinine 6.6. Glucose 109. She remains on heparin for DVT prophylaxis. Objective - Vital Signs Vital signs: Vital Signs Temp 97.9 F 09/09/24 07:14 Pulse 92 09/09/24 07:14 Resp 18 09/09/24 07:14 BP 200/105 09/09/24 07:14 Pulse Ox 95 09/09/24 07:14 FiO2 40 09/04/24 02:07 Intake & Output 09/08/24 09/09/24 09/09/24 18:59 06:59 18:59 Weight 66.5 kg Other: # Voids 2 - Exam GENERAL EXAM: Alert, 34-year-old female, resting in bed, on room air, no acute d istress. HEAD: Normocephalic. EYES: Normal reaction of pupils, equal size. NOSE: Clear with pink turbinates. Recent epistaxis. THROAT: No erythema or exudates. NECK: No masses, no JVD. CHEST: No chest wall deformity. Dialysis catheter on the right LUNGS: Fine crackles at the bases. No rhonchi no wheezes. CVS: S1 and S2 normal with no audible murmur, regular rhythm. ABDOMEN: No hepatosplenomegaly, normal bowel sounds, no guarding or rigidity. SKIN: No rashes CENTRAL NERVOUS SYSTEM: No focal deficits, tone is normal in all 4 extremities. EXTREMITIES: There is no peripheral edema. No clubbing, no cyanosis. Peripheral pulses are intact. - Labs CBC & Chem 7: 09/09/24 03:45 09/09/24 03:45 Labs: Abnormal Lab Results - Last 24 Hours (Table) 09/08/24 09/08/24 09/09/24 Range/Units 16:28 20:36 03:45 RBC 3.07 L (4.10-5.20) X 10*6/uL Hgb 9.7 L (12.0-15.0) g/dL Hct 29.4 L (37.2-46.3) % RDW 16.5 H (11.5-14.5) % Eosinophils # 0.73 H (0.04-0.35) X 10*3/uL Sodium (135-145) mmol/L Chloride (96-109) mmol/L Anion Gap (4.00-12.00) mmol/L Creatinine (0.6-1.5) mg/dL Est GFR (CKD-EPI) (>=60) BUN/Creatinine Ratio (12.00-20.00) Ratio POC Glucose (mg/dL) 114 H 231 H (70-110) mg/dL Phosphorus (2.4-5.1) mg/dL 09/09/24 Range/Units 03:45 RBC (4.10-5.20) X 10*6/uL Hgb (12.0-15.0) g/dL Hct (37.2-46.3) % RDW (11.5-14.5) % Eosinophils # (0.04-0.35) X 10*3/uL Sodium 134 L (135-145) mmol/L Chloride 93 L (96-109) mmol/L Anion Gap 16.40 H (4.00-12.00) mmol/L Creatinine 6.6 H (0.6-1.5) mg/dL Est GFR (CKD-EPI) 8 L (>=60) BUN/Creatinine Ratio 3.61 L (12.00-20.00) Ratio POC Glucose (mg/dL) (70-110) mg/dL Phosphorus 6.8 H (2.4-5.1) mg/dL Assessment and Plan Assessment: Acute hypoxemic respiratory failure secondary to an acute episode of pulmonary edema and fluid volume overload, significantly improved after dialysis stable and on room air Hypertensive urgency, labetalol increased End-stage renal disease requiring hemodialysis 4 times per week Hyperkalemia secondary to above Diabetes mellitus, insulin-dependent Anemia of chronic disease History of CVA/TIA History of optic neuritis Hypothyroidism History of depression Plan: The patient was seen and evaluated Labs and medications reviewed Stable and on room air Receiving hemodialysis today Labetalol increased again per nephrology This patient was seen independently by the pulmonary nurse practitioner addressing pulmonary issues I have personally seen and examined the patient, performed the documentation and the assessment and plan as written. Number of minutes spent on the visit: 23 Dictation was produced using [employer] dictation software. Please excuse any grammatical, word or spelling errors.
[2024-09-09 11:45] LABS: Glucose,Whole Blood 99 mg/dL (70-110)
--- NOTE | 2024-09-09 11:53 | P.PN ---
Subjective Patient is seen in follow-up for end-stage renal disease. Tolerating dialysis well. Has nosebleed last night but now resolved. Vital signs are stable. General: No acute distress. HEENT: Head exam is unremarkable. On room air. LUNGS: No audible rhonchi or wheezes. HEART: Rate and Rhythm are regular. ABDOMEN: Nontender. EXTREMITITES: No edema. Objective - Vital Signs Vital signs: Vital Signs Temp 97.9 F 09/09/24 07:14 Pulse 92 09/09/24 07:14 Resp 18 09/09/24 07:14 BP 200/105 09/09/24 07:14 Pulse Ox 95 09/09/24 07:14 FiO2 40 09/04/24 02:07 Intake & Output 09/08/24 09/09/24 09/09/24 18:59 06:59 18:59 Weight 66.5 kg Other: # Voids 2 - Labs CBC & Chem 7: 09/09/24 03:45 09/09/24 03:45 Labs: Abnormal Lab Results - Last 24 Hours (Table) 09/08/24 09/08/24 09/09/24 Range/Units 16:28 20:36 03:45 RBC 3.07 L (4.10-5.20) X 10*6/uL Hgb 9.7 L (12.0-15.0) g/dL Hct 29.4 L (37.2-46.3) % RDW 16.5 H (11.5-14.5) % Eosinophils # 0.73 H (0.04-0.35) X 10*3/uL Sodium (135-145) mmol/L Chloride (96-109) mmol/L Anion Gap (4.00-12.00) mmol/L Creatinine (0.6-1.5) mg/dL Est GFR (CKD-EPI) (>=60) BUN/Creatinine Ratio (12.00-20.00) Ratio POC Glucose (mg/dL) 114 H 231 H (70-110) mg/dL Phosphorus (2.4-5.1) mg/dL 09/09/24 Range/Units 03:45 RBC (4.10-5.20) X 10*6/uL Hgb (12.0-15.0) g/dL Hct (37.2-46.3) % RDW (11.5-14.5) % Eosinophils # (0.04-0.35) X 10*3/uL Sodium 134 L (135-145) mmol/L Chloride 93 L (96-109) mmol/L Anion Gap 16.40 H (4.00-12.00) mmol/L Creatinine 6.6 H (0.6-1.5) mg/dL Est GFR (CKD-EPI) 8 L (>=60) BUN/Creatinine Ratio 3.61 L (12.00-20.00) Ratio POC Glucose (mg/dL) (70-110) mg/dL Phosphorus 6.8 H (2.4-5.1) mg/dL Assessment and Plan Plan: Assessment: 1. End-stage renal disease maintained on hemodialysis on Wednesday. 2. Acute hypoxic respiratory failure currently on room air. 3. Hypertensive emergency. Improved. 4. Chronic kidney disease mineral bone disease maintained on Renvela. 5. Hyperkalemia secondary to chronic kidney disease and hyperglycemia. Entresto also noted on medication list. 6. Type 1 diabetes mellitus. 7. Volume overload. Improved with ultrafiltration. 8. Hypertonic hyponatremia secondary to hyperglycemia. Improved. 9. Metabolic acidosis secondary to hyperglycemia. Improved postdialysis. Plan: Currently seen while undergoing hemodialysis. Challenge ultrafiltration. Blood pressure stable during dialysis. Blood glucose control. Labetalol dose increased September 08, 2024. Not on ACEi/ARB or aldactone due to hyperkalemia. Add minoxidil. Maintain as needed hydralazine.
[2024-09-09] MEDS: minoxidiL 2.5 MG TAB PO SCH (13:42)
--- NOTE | 2024-09-09 14:58 | XR ---
EXAMINATION TYPE: XR hand limited RT DATE OF EXAM: 09/09/2024 COMPARISON: 07/10/2012 HISTORY: 34-year-old female with hand pain TECHNIQUE: 2 views FINDINGS: No acute fracture, subluxation, dislocation. No soft tissue calcifications or marginal eros ions are seen. IMPRESSION: No acute osseous abnormality seen on these 2 views. [facility] Jessica Pickard, , 09/09/2024 2:56 PM
[2024-09-09 15:24] LABS: % Iron Saturation 36.24 (12.00-45.00)
[2024-09-09 16:44] LABS: Glucose,Whole Blood 109 mg/dL (70-110)
--- NOTE | 2024-09-09 18:19 | P.CNOR ---
History of Present Illness - [facility] Consult date: 09/09/24 Requesting physician: Jamal E Sheet Consult reason: other (Right hand pain) History of present illness: History of Presenting Illness Patient is a Pleasant 34-year-old female who presented to the ER on 09/04/2024 due to an acute onset of severe dyspnea. Patient does have a history of renal failure and is on hemodialysis. Our services were consulted due to right hand pain. Patient reports that 3 days prior to admission that she developed an aching pain to the hypothenar region of the right hand. Patient does express increased pain with flexion and extension of the right wrist. Patient denies any injury or trauma to indicate onset of symptoms. She denies any numbness or tingling of the right upper extremity, hand, or fingers. Patient does have a past medical history of hypertension, diabetes type 1, end-stage renal disease in which she is on hemodialysis 4 times a week, seizure disorder, hypothyroidism, gastroparesis, chronic pain, anxiety and depression. Patient denies any orthopedic history. Review of Systems Pertinent positives and negatives as discussed in HPI, a complete review of systems was performed and all other systems are negative. Physical Examination Right Hand: Inspection: Negative for any open fractures, ecchymosis, significant erythema/ulcers. Sensation: Sensation is equal, symmetric, bilaterally intact throughout the upper extremities Palpation: Tender to palpation of the hypothenar region of the right hand. Range of motion: Patient does have limited range of motion due to pain. Motor: 4/5 in all major motor groups of the right hand, increased pain with nascar driver and flexion and extension of the right wrist. Neurovascular: Radial pulse intact, 2+ bilaterally. Cap refill under 3 seconds in digits upper extremities. Assessment 1. Right hand pain Plan At this time we do not recommend any emergent/urgent orthopedic surgical intervention. We will obtain CRP and ESR labs to rule out any type of infectious process. Xrays of the right hand are negative for any dislocations or fractures. 2. Appreciate medical management 3. CRP and ESR labs have been ordered STAT, pending results. 4. Pain management - Recommend analgesics 5. Appreciate consult I reviewed and discussed this case with my attending Dr. Feng, whom has reviewed this chart and films and is in agreement with assessment and plan of care as outlined above. I have personally seen and examined the patient, performed the documentation and the assessment and plan as written. Number of minutes spent on the visit: 30m. Past Medical History Past Medical History: Diabetes Mellitus, GERD/Reflux, Hypertension, Renal Disease, Seizure Disorder, Thyroid Disorder Additional Past Medical History / Comment(s): Neuropathy, last seizure 2020, gastroparesis, headaches with dialysis, states "fast heart rate" since giving ., receives Hemodialysis Wednesday- and Saturdays at [facility] right chest hemodialysis catheter., severe HTN. patient awaiting Kidney and Pancrease Transplant. , states sometimes she has had stroke -like symptoms but no stroke., hx of c-diff 2013. History of Any Multi-Drug Resistant Organisms: None Reported Year Discovered:: None MDRO Source:: None Past Surgical History: Adenoidectomy, Section, Cholecystectomy, Orthopedic Surgery, Tonsillectomy Additional Past Surgical History / Comment(s): 2 KNEE SCOPES, EAR TUBES, additional left knee surgery related to fracture, new port a cath sept , eye surgeries for diabetic retinopathy. Past Anesthesia/Blood Transfusion Reactions: Previous Problems w/ Anesthesia Additional Past Anesthesia/Blood Transfusion Reaction / Comm: confusion Past Psychological History: Anxiety, Depression Smoking Status: Former smoker Past Alcohol Use History: None Reported Past Drug Use History: Marijuana, Methamphetamine - Past Family History Father History Unknown: Yes Family Medical History: Unable to Obtain Mother History Unknown: Yes Family Medical History: No Reported History Grandfather History Unknown: Yes Family Medical History: Coronary Artery Disease (CAD) Additional Family Medical History / Comment(s): Diabetes mellitus type 2 Medications and Allergies Home Medications Medication Instructions Recorded Confirmed Type Docusate [Colace] 100 mg PO DAILY@0802/05/24 09/04/24 History Lidocaine 4% Patch 1 patch TOPICAL DAILY@79902/05/24 09/04/24 History Magnesium Hydroxide [Milk of 7,200 mg PO DAILY PRN 02/05/24 09/04/24 History Magnesia Concentrate] Ipratropium-Albuterol Nebulize 3 ml INHALATION RT-TID PRN each 02/14/24 09/04/24 Rx [Duoneb 0.5 mg-3 mg/3 ml Soln] polyethylene glycoL 3350 [Miralax] 17 gm PO AC-LUNCH #527 gm 02/14/24 09/04/24 Rx Acetaminophen [Tylenol] 650 mg PO Q4H PRN 02/18/24 09/04/24 History Biotene Dry Mouth/Throat 10 ml PO BID PRN 02/18/24 09/04/24 History Melatonin 1 mg PO HS tab 02/25/24 09/04/24 Rx Butalb/APAP/Caff 50-325-40Mg 1 tab PO Q4HR PRN 03/14/24 09/04/24 History [Fioricet 50-325-40] Darbepoetin Artur [Aranesp] 40 mcg SQ MO 03/14/24 09/04/24 History Loratadine [Claritin] 5 mg PO DAILY tab 03/30/24 09/04/24 Rx INSULIN ASPART (NovoLOG) [NovoLOG See Protocol SQ ACHS 04/16/24 09/04/24 History (formulary)] Aspirin 81 mg PO DAILY@0800 #30 tab 05/18/24 09/04/24 Rx Famotidine [Pepcid] 20 mg PO BID #60 tab 07/11/24 09/04/24 Rx Insulin Glargine [Lantus Vial] 12 unit SQ BID #1 each 07/11/24 09/04/24 Rx Ondansetron [Zofran] 4 mg PO Q8HR PRN #20 tab 07/11/24 09/04/24 Rx Atorvastatin [Lipitor] 40 mg PO DIRECTED 08/14/24 09/04/24 History Divalproex ER [Depakote ER] 500 mg PO DIRECTED 08/14/24 09/04/24 History Folic Acid-Vit B Complex-Vit C 1 cap PO DIRECTED 08/14/24 09/04/24 History [Nephrocaps] HYDROcodone/APAP 7.5-325MG [Ford 1 tab PO DIRECTED PRN 08/14/24 09/04/24 History 7.5-325] Levothyroxine Sodium [Synthroid] 175 mcg PO DIRECTED 08/14/24 09/04/24 History Metoclopramide [Reglan] 5 mg PO DIRECTED PRN 08/14/24 09/04/24 History Pantoprazole [Protonix] 40 mg PO DIRECTED 08/14/24 09/04/24 History Sertraline [Zoloft] 200 mg PO DIRECTED 08/14/24 09/04/24 History hydrALAZINE HCL [Apresoline] 150 mg PO QID 08/14/24 09/04/24 History methocarbamoL [Robaxin-750] 750 mg PO DIRECTED 08/14/24 09/04/24 History traZODone HCL [Desyrel] 50 mg PO DIRECTED 08/14/24 09/04/24 History Labetalol [Trandate] 200 mg PO BID 30 Days #60 tab 08/24/24 09/04/24 Rx amLODIPine [Norvasc] 10 mg PO DAILY 30 Days #30 tab 08/24/24 09/04/24 Rx ALPRAZolam [Xanax] 0.25 mg PO BID PRN 09/04/24 09/04/24 History Calcium Acetate [Phoslo] 2,001 mg PO TID-W/MEALS 09/04/24 09/04/24 History Calcium Acetate [Phoslo] 667 mg PO DAILY PRN 09/04/24 09/04/24 History Isosorbide Mononitrate ER [Imdur] 30 mg PO DAILY 09/04/24 09/04/24 History Sacubitril/Valsartan [Entresto 49 1 tab PO BID 09/04/24 09/04/24 History mg-51 mg Tablet] cloNIDine HCL [Catapres] 0.3 mg PO TID 09/04/24 09/04/24 History Allergies Allergy/AdvReac Type Severity Reaction Status Date / Time hydromorphone HCl Allergy Anaphylaxis Verified 09/04/24 08:48 [From Dilaudid] propoxyphene Allergy Rash/Hives Verified 09/04/24 08:48 [From Darvocet-N] tramadol Allergy Anaphylaxis Verified 09/04/24 08:48 ibuprofen [From Motrin] AdvReac unable to Verified 09/04/24 08:48 take due to kidney disease venom-honey bee AdvReac passes out Verified 09/04/24 08:48 [bee venom (honey bee)] Results - Labs Labs: Abnormal Lab Results - Last 24 Hours (Table) 09/08/24 09/08/24 09/09/24 Range/Units 16:28 20:36 03:45 RBC 3.07 L (4.10-5.20) X 10*6/uL Hgb 9.7 L (12.0-15.0) g/dL Hct 29.4 L (37.2-46.3) % RDW 16.5 H (11.5-14.5) % Eosinophils # 0.73 H (0.04-0.35) X 10*3/uL Sodium (135-145) mmol/L Chloride (96-109) mmol/L Anion Gap (4.00-12.00) mmol/L Creatinine (0.6-1.5) mg/dL Est GFR (CKD-EPI) (>=60) BUN/Creatinine Ratio (12.00-20.00) Ratio POC Glucose (mg/dL) 114 H 231 H (70-110) mg/dL Phosphorus (2.4-5.1) mg/dL 09/09/24 Range/Units 03:45 RBC (4.10-5.20) X 10*6/uL Hgb (12.0-15.0) g/dL Hct (37.2-46.3) % RDW (11.5-14.5) % Eosinophils # (0.04-0.35) X 10*3/uL Sodium 134 L (135-145) mmol/L Chloride 93 L (96-109) mmol/L Anion Gap 16.40 H (4.00-12.00) mmol/L Creatinine 6.6 H (0.6-1.5) mg/dL Est GFR (CKD-EPI) 8 L (>=60) BUN/Creatinine Ratio 3.61 L (12.00-20.00) Ratio POC Glucose (mg/dL) (70-110) mg/dL Phosphorus 6.8 H (2.4-5.1) mg/dL H & H 09/04/24 09/05/24 09/07/24 Range/Units 02:07 05:33 03:33 Hgb 10.7 L 10.5 L 9.1 L (11.4-16.0) gm/dL Hct 34.0 33.6 L 30.6 L (34.0-46.0) % 09/09/24 Range/Units 03:45 Hgb 9.7 L (11.4-16.0) gm/dL Hct 29.4 L (34.0-46.0) % Coagulation 09/04/24 Range/Units 02:07 INR 1.1 (<1.2) Result Diagrams: 09/09/24 03:45 09/09/24 03:45
[2024-09-09 21:08] LABS: Glucose,Whole Blood 318 mg/dL (70-110)
[2024-09-09 21:18] LABS: Glucose,Whole Blood 347 mg/dL (70-110)
--- NOTE | 2024-09-09 21:30 | P.PN ---
Subjective This is a pleasant 34 years old female who was admitted for hypertensive urgency and acute CHF. She is a known case of end-stage renal disease undergoing hemodialysis Her blood pressure remains elevated, this morning 190/100 Currently she is on multiple blood pressure medication including Norvasc, clonidine, hydralazine and labetalol 400 mg twice daily. Yesterday labetalol dose was increased as well as added minoxidil as she is having epistaxis Today she still have epistaxis and she still hypertensive therefore we will increase labetalol to 500 mg twice daily, heart rate is around 70s to 80s. Currently she is on aspirin 81 mg only. Also today she has been complaining of from painful red area on the palm of her right hand, she states this has been for 3 days and she denies trauma. X-ray of the hand is negative, orthopedic consult was obtained who recommended to check inflammatory markers, CRP slightly elevated at 1.1. Other than hypertension rest of vitals look stable hemoglobin 9.7, creatinine 6.6, liver enzymes slightly elevated but improving Objective - Vital Signs Vital signs: Vital Signs Temp 97.9 F 09/09/24 07:14 Pulse 92 09/09/24 07:14 Resp 18 09/09/24 07:14 BP 200/105 09/09/24 07:14 Pulse Ox 95 09/09/24 07:14 FiO2 40 09/04/24 02:07 Intake & Output 09/08/24 09/09/24 09/09/24 18:59 06:59 18:59 Weight 66.5 kg Other: # Voids 2 - Exam GENERAL: The patient is alert and oriented x3, not in any acute distress. Well developed, well nourished. HEENT: Pupils are round and equally reacting to light. EOMI. No scleral icterus. No conjunctival pallor. Normocephalic, atraumatic. No pharyngeal erythema. No thyromegaly. CARDIOVASCULAR: S1 and S2 present. No murmurs, rubs, or gallops. PULMONARY: Chest is clear to auscultation, no wheezing , no crackles. ABDOMEN: Soft, nontender, nondistended, normoactive bowel sounds. No palpable organomegaly. MUSCULOSKELETAL: No joint swelling or deformity. -EXTREMITIES: No cyanosis, clubbing, or pedal edema. Painful area on the right hand about 1 inch in diameter NEUROLOGICAL: Gross neurological examination did not reveal any focal deficits. SKIN: No rashes. no petechiae. - Labs CBC & Chem 7: 09/09/24 03:45 09/09/24 03:45 Labs: Abnormal Lab Results - Last 24 Hours (Table) 09/08/24 09/08/24 09/09/24 Range/Units 16:28 20:36 03:45 RBC 3.07 L (4.10-5.20) X 10*6/uL Hgb 9.7 L (12.0-15.0) g/dL Hct 29.4 L (37.2-46.3) % RDW 16.5 H (11.5-14.5) % Eosinophils # 0.73 H (0.04-0.35) X 10*3/uL Sodium (135-145) mmol/L Chloride (96-109) mmol/L Anion Gap (4.00-12.00) mmol/L Creatinine (0.6-1.5) mg/dL Est GFR (CKD-EPI) (>=60) BUN/Creatinine Ratio (12.00-20.00) Ratio POC Glucose (mg/dL) 114 H 231 H (70-110) mg/dL Phosphorus (2.4-5.1) mg/dL 09/09/24 Range/Units 03:45 RBC (4.10-5.20) X 10*6/uL Hgb (12.0-15.0) g/dL Hct (37.2-46.3) % RDW (11.5-14.5) % Eosinophils # (0.04-0.35) X 10*3/uL Sodium 134 L (135-145) mmol/L Chloride 93 L (96-109) mmol/L Anion Gap 16.40 H (4.00-12.00) mmol/L Creatinine 6.6 H (0.6-1.5) mg/dL Est GFR (CKD-EPI) 8 L (>=60) BUN/Creatinine Ratio 3.61 L (12.00-20.00) Ratio POC Glucose (mg/dL) (70-110) mg/dL Phosphorus 6.8 H (2.4-5.1) mg/dL Assessment and Plan Assessment: Hypertensive urgency Acute on chronic diastolic CHF End-stage renal disease on hemodialysis Epistaxis secondary to above improved Right hand pain and erythema of the palm Plan: Continue with current hypertensive medication increase labetalol to 500 mg. Also she is on minoxidil, Norvasc, clonidine 0.3 mg Afrin is added Monitor blood pressure Nephrology consult for hemodialysis Orthopedic consult was obtained for her right hand pain and erythema, hand x-ray is negative. Labs and medication were reviewed.. Continue same treatment. Continue with symptomatic treatment. Resume home medication. Monitor labs and vitals. DVT and GI prophylaxis. Further recommendations as per clinical course of the patient DVT prophylaxis: no Subcutaneous heparin for epistaxis GI Prophylaxis: Pepcid Prognosis is guarded
[2024-09-09] MEDS: LABETALOL 200 MG TAB PO SCH (22:19)
[2024-09-09] MEDS: LABETALOL 100 MG TAB PO ONE (22:19)
[2024-09-09] MEDS: OXYMETAZOLINE 0.05% NASL SPRAY 1 SPRAY BOTTLE NASAL PRN (22:21)
[2024-09-09] MEDS: LABETALOL 5 MG/ML VIAL MDV IVP STA (22:30)
[2024-09-10] MEDS: hydrALAZINE HCL 20 MG/ML 1 ML VIAL IVP PRN (00:39)
[2024-09-10 06:56] LABS: Glucose,Whole Blood 177 mg/dL (70-110)
[2024-09-10] MEDS: LABETALOL 200 MG TAB PO SCH (07:56)
--- NOTE | 2024-09-10 08:00 | P.PN ---
Subjective Progress Note Date: 09/10/24 Principal diagnosis: Right hand pain Patient seen and examined this morning. Upon entering room patient is vomiting into a basin, adjunct nursing faculty is at bedside assisting patient. Patient continues to report pain into the hypothenar region of the hand. Today there is redness and bruising present in this area. Very tender to palpation. Patient continues to have complaint of increased pain with any movement. Patient does have a right subclavian dialysis port, there is no edema or erythema to this site. CRP is slightly elevated at 1.1, still awaiting ESR level. Objective - Vital Signs Vital signs: Vital Signs Temp 98.3 F 09/10/24 07:14 Pulse 87 09/10/24 07:14 Resp 14 09/10/24 07:14 BP 153/83 09/10/24 07:14 Pulse Ox 100 09/10/24 07:14 FiO2 40 09/04/24 02:07 Intake & Output 09/09/24 09/10/24 09/10/24 18:59 06:59 18:59 Intake Total 500 Output Total 7700 Balance -7200 Intake: Hemodialysis 500 Output: Hemodialysis 4100 Hemodialysis Net Amount 3600 Other: # Voids 4 - Exam Right Hand: Inspection: There is a small area with erythema and ecchymosis in the hypothenar region Sensation: Sensation is equal, symmetric, bilaterally intact throughout the upper extremities Palpation: Very tender to palpation of the hypothenar region of the right hand. Range of motion: Patient does have limited range of motion due to pain. 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 Neurovascular: Radial pulse intact, 2+ bilaterally. Cap refill under 3 seconds in digits upper extremities. - Labs CBC & Chem 7: 09/09/24 03:45 09/09/24 03:45 Labs: Abnormal Lab Results - Last 24 Hours (Table) 09/09/24 09/09/24 09/09/24 Range/Units 03:45 03:45 03:45 RBC 3.07 L (4.10-5.20) X 10*6/uL Hgb 9.7 L (12.0-15.0) g/dL Hct 29.4 L (37.2-46.3) % RDW 16.5 H (11.5-14.5) % Eosinophils # 0.73 H (0.04-0.35) X 10*3/uL Sodium 134 L (135-145) mmol/L Chloride 93 L (96-109) mmol/L Anion Gap 16.40 H (4.00-12.00) mmol/L Creatinine 6.6 H (0.6-1.5) mg/dL Est GFR (CKD-EPI) 8 L (>=60) BUN/Creatinine Ratio 3.61 L (12.00-20.00) Ratio POC Glucose (mg/dL) (70-110) mg/dL Phosphorus 6.8 H (2.4-5.1) mg/dL Ferritin 534.0 H (10.0-291.0) ng/mL C-Reactive Protein (<1.0) mg/dL 09/09/24 09/09/24 09/09/24 Range/Units 18:23 21:06 21:16 RBC (4.10-5.20) X 10*6/uL Hgb (12.0-15.0) g/dL Hct (37.2-46.3) % RDW (11.5-14.5) % Eosinophils # (0.04-0.35) X 10*3/uL Sodium (135-145) mmol/L Chloride (96-109) mmol/L Anion Gap (4.00-12.00) mmol/L Creatinine (0.6-1.5) mg/dL Est GFR (CKD-EPI) (>=60) BUN/Creatinine Ratio (12.00-20.00) Ratio POC Glucose (mg/dL) 318 H 347 H (70-110) mg/dL Phosphorus (2.4-5.1) mg/dL Ferritin (10.0-291.0) ng/mL C-Reactive Protein 1.1 H (<1.0) mg/dL 09/10/24 Range/Units 06:54 RBC (4.10-5.20) X 10*6/uL Hgb (12.0-15.0) g/dL Hct (37.2-46.3) % RDW (11.5-14.5) % Eosinophils # (0.04-0.35) X 10*3/uL Sodium (135-145) mmol/L Chloride (96-109) mmol/L Anion Gap (4.00-12.00) mmol/L Creatinine (0.6-1.5) mg/dL Est GFR (CKD-EPI) (>=60) BUN/Creatinine Ratio (12.00-20.00) Ratio POC Glucose (mg/dL) 177 H (70-110) mg/dL Phosphorus (2.4-5.1) mg/dL Ferritin (10.0-291.0) ng/mL C-Reactive Protein (<1.0) mg/dL Assessment and Plan Assessment: Assessment 1. Right hand pain Plan: Plan At this time we do not recommend any emergent/urgent orthopedic surgical intervention. 2. Appreciate medical management 3. Awaiting ESR results 4. Pain management - Recommend analgesics 5. Appreciate consult I reviewed and discussed this case with my attending Dr. Feng, whom has reviewed this chart and films and is in agreement with assessment and plan of care as outlined above. I have personally seen and examined the patient, performed the documentation and the assessment and plan as written. Number of minutes spent on the visit: 30m.
--- NOTE | 2024-09-10 10:17 | P.PN ---
Subjective Patient is seen in follow-up for end-stage renal disease. Tolerated 3.6 L ultrafiltration yesterday. On 3 L nasal cannula. Continues to have inte rmittent nausea and vomiting. Vital signs are stable. General: No acute distress. HEENT: Head exam is unremarkable. On room air. LUNGS: No audible rhonchi or wheezes. HEART: Rate and Rhythm are regular. ABDOMEN: Nontender. EXTREMITITES: No edema. Objective - Vital Signs Vital signs: Vital Signs Temp 98.3 F 09/10/24 07:14 Pulse 87 09/10/24 07:14 Resp 14 09/10/24 07:14 BP 153/83 09/10/24 07:14 Pulse Ox 100 09/10/24 07:14 FiO2 40 09/04/24 02:07 Intake & Output 09/09/24 09/10/24 09/10/24 18:59 06:59 18:59 Intake Total 500 Output Total 7700 Balance -7200 Intake: Hemodialysis 500 Output: Hemodialysis 4100 Hemodialysis Net Amount 3600 Other: # Voids 4 - Labs CBC & Chem 7: 09/09/24 03:45 09/09/24 03:45 Labs: Abnormal Lab Results - Last 24 Hours (Table) 09/09/24 09/09/24 09/09/24 Range/Units 03:45 18:23 18:23 ESR 22 H (0-20) mm/Hr POC Glucose (mg/dL) (70-110) mg/dL Ferritin 534.0 H (10.0-291.0) ng/mL C-Reactive Protein 1.1 H (<1.0) mg/dL 09/09/24 09/09/24 09/10/24 Range/Units 21:06 21:16 06:54 ESR (0-20) mm/Hr POC Glucose (mg/dL) 318 H 347 H 177 H (70-110) mg/dL Ferritin (10.0-291.0) ng/mL C-Reactive Protein (<1.0) mg/dL Assessment and Plan Plan: Assessment: 1. End-stage renal disease maintained on hemodialysis on Wednesday. 2. Acute hypoxic respiratory failure currently on nasal cannula. 3. Hypertensive emergency. Improved. 4. Chronic kidney disease mineral bone disease maintained on Renvela. 5. Hyperkalemia secondary to chronic kidney disease and hyperglycemia. Entresto also noted on medication list. 6. Type 1 diabetes mellitus. 7. Volume overload. Improved with ultrafiltration. 8. Hypertonic hyponatremia secondary to hyperglycemia. Improved. 9. Metabolic acidosis secondary to hyperglycemia. Improved postdialysis. Plan: Hemodialysis tomorrow. Blood glucose control. Labetalol dose increased this morning by primary team. Not on ACEi/ARB or aldactone due to hyperkalemia. Minoxidil added September 09, 2024. Maintain as needed hydralazine.
[2024-09-10 11:30] LABS: Glucose,Whole Blood 131 mg/dL (70-110)
--- NOTE | 2024-09-10 12:55 | P.PN ---
Subjective This is a pleasant 34 years old female who was admitted for hypertensive urgency and acute CHF. She is a known case of end-stage renal disease undergoing hemodialysis Her blood pressure remains elevated, this morning 190/100 Currently she is on multiple blood pressure medication including Norvasc, clonidine, hydralazine and labetalol 400 mg twice daily. Yesterday labetalol dose was increased as well as added minoxidil as she is having epistaxis Today she still have epistaxis and she still hypertensive therefore we will increase labetalol to 500 mg twice daily, heart rate is around 70s to 80s. Currently she is on aspirin 81 mg only. Also today she has been complaining of from painful red area on the palm of her right hand, she states this has been for 3 days and she denies trauma. X-ray of the hand is negative, orthopedic consult was obtained who recommended to check inflammatory markers, CRP slightly elevated at 1.1. Other than hypertension rest of vitals look stable hemoglobin 9.7, creatinine 6.6, liver enzymes slightly elevated but improving 09/10 Patient still have mild epistaxis She is also having recurrent nausea vomiting, she is on Zofran and Reglan but patient told me this morning she wants to try Compazine as it is working for her which is ordered No abdominal pain or distention. No headache or confusion. Before her right hand small area of redness and tenderness thought secondary to contusion by orthopedic team who cleared her to follow-up as an outpatient as needed. Inflammatory markers were minimally elevated which is expected in renal disease, her CRP is 1.1 and ESR 22. No other new complaints. Objective - Vital Signs Vital signs: Vital Signs Temp 98.3 F 09/10/24 07:14 Pulse 87 09/10/24 07:14 Resp 14 09/10/24 07:14 BP 153/83 09/10/24 07:14 Pulse Ox 100 09/10/24 07:14 FiO2 40 09/04/24 02:07 Intake & Output 09/09/24 09/10/24 09/10/24 18:59 06:59 18:59 Intake Total 500 Output Total 7700 Balance -7200 Intake: Hemodialysis 500 Output: Hemodialysis 4100 Hemodialysis Net Amount 3600 Other: # Voids 4 - Exam GENERAL: The patient is alert and oriented x3, not in any acute distress. Well developed, well nourished. HEENT: Pupils are round and equally reacting to light. EOMI. No scleral icterus. No conjunctival pallor. Normocephalic, atraumatic. No pharyngeal erythema. No thyromegaly. CARDIOVASCULAR: S1 and S2 present. No murmurs, rubs, or gallops. PULMONARY: Chest is clear to auscultation, no wheezing , no crackles. ABDOMEN: Soft, nontender, nondistended, normoactive bowel sounds. No palpable organomegaly. MUSCULOSKELETAL: No joint swelling or deformity. -EXTREMITIES: No cyanosis, clubbing, or pedal edema. Painful area on the right hand about 1 inch in diameter NEUROLOGICAL: Gross neurological examination did not reveal any focal deficits. SKIN: No rashes. no petechiae. - Labs CBC & Chem 7: 09/09/24 03:45 09/09/24 03:45 Labs: Abnormal Lab Results - Last 24 Hours (Table) 09/09/24 09/09/24 09/09/24 Range/Units 03:45 18:23 18:23 ESR 22 H (0-20) mm/Hr POC Glucose (mg/dL) (70-110) mg/dL Ferritin 534.0 H (10.0-291.0) ng/mL C-Reactive Protein 1.1 H (<1.0) mg/dL 09/09/24 09/09/24 09/10/24 Range/Units 21:06 21:16 06:54 ESR (0-20) mm/Hr POC Glucose (mg/dL) 318 H 347 H 177 H (70-110) mg/dL Ferritin (10.0-291.0) ng/mL C-Reactive Protein (<1.0) mg/dL 09/10/24 Range/Units 11:28 ESR (0-20) mm/Hr POC Glucose (mg/dL) 131 H (70-110) mg/dL Ferritin (10.0-291.0) ng/mL C-Reactive Protein (<1.0) mg/dL Assessment and Plan Assessment: Hypertensive urgency, improving Acute on chronic diastolic CHF End-stage renal disease on hemodialysis Epistaxis secondary to above improved Right hand pain and erythema of the palm. Thought secondary to hand contusion. Orthopedic team signed off the case and recommended follow-up outpatient as needed Plan: Continue with current hypertensive medication increase labetalol to 500 mg. Also she is on minoxidil, Norvasc, clonidine 0.3 mg Afrin is added Monitor blood pressure Nephrology consult for hemodialysis Orthopedic consult was obtained for her right hand pain and erythema, hand x-ray is negative. They recommend follow-up outpatient as needed. No need for any surgical intervention Labs and medication were reviewed.. Continue same treatment. Continue with symptomatic treatment. Resume home medication. Monitor labs and vitals. DVT and GI prophylaxis. Further recommendations as per clinical course of the patient DVT prophylaxis: no Subcutaneous heparin for epistaxis GI Prophylaxis: Pepcid Prognosis is guarded
[2024-09-10] MEDS: PROCHLORPERAZINE 5 MG TAB PO PRN (13:44)
[2024-09-10 16:28] LABS: Glucose,Whole Blood 148 mg/dL (70-110)
[2024-09-10 20:44] LABS: Glucose,Whole Blood 231 mg/dL (70-110)
[2024-09-11 06:24] LABS: Glucose,Whole Blood 149 mg/dL (70-110)
[2024-09-11 11:21] LABS: Glucose,Whole Blood 119 mg/dL (70-110)
--- NOTE | 2024-09-11 13:12 | P.PN ---
Subjective patient is seen for follow-up for end-stage renal disease. Scheduled for dialysis today. Shortness of breath has improved. Patient has had epistaxis which is slightly better now. Objective - Vital Signs Vital signs: Vital Signs Temp 97.7 F 09/11/24 08:00 Pulse 84 09/11/24 08:00 Resp 16 09/11/24 08:00 BP 145/80 09/11/24 08:00 Pulse Ox 97 09/11/24 08:00 FiO2 40 09/04/24 02:07 Intake & Output 09/10/24 09/11/24 09/11/24 18:59 06:59 18:59 Weight 63.5 kg Other: Voiding Method Toilet # Voids 2 2 1 - Exam patient is awake, comfortable, no acute distress. Examination of the heart S1 and S2 Examination of the lungs bilateral breath sounds are heard Examination of lower extremities shows no edema - Labs CBC & Chem 7: 09/09/24 03:45 09/09/24 03:45 Labs: Abnormal Lab Results - Last 24 Hours (Table) 09/10/24 09/10/24 09/11/24 Range/Units 16:27 20:28 06:20 POC Glucose (mg/dL) 148 H 231 H 149 H (70-110) mg/dL 09/11/24 Range/Units 11:19 POC Glucose (mg/dL) 119 H (70-110) mg/dL Assessment and Plan Assessment: 1. End-stage renal disease maintained on hemodialysis on Wednesday. 2. Acute hypoxic respiratory failure currently on nasal cannula. 3. Hypertensive emergency. Improved. 4. Chronic kidney disease mineral bone disease maintained on Renvela. 5. Hyperkalemia secondary to chronic kidney disease and hyperglycemia. Entresto also noted on medication list. 6. Type 1 diabetes mellitus. 7. Volume overload. Improved with ultrafiltration. 8. Hypertonic hyponatremia secondary to hyperglycemia. Improved. 9. Metabolic acidosis secondary to hyperglycemia. Improved postdialysis. Plan: repeat hemodialysis in a.m. Increase UF as tolerated. Blood pressure usually improves with adequate ultrafiltration.
[2024-09-11 14:34] LABS: African American GFR (CKD) 7 (>60 ml/min/1.73 sqM); Anion Gap 11 mmol/L; Blood Urea Nitrogen 31 mg/dL (7-17); Calcium 9.2 mg/dL (8.4-10.2); Carbon Dioxide 31 mmol/L (22-30); Chloride 89 mmol/L (98-107); Glucose 85 mg/dL (74-99); Non-African American GFR(CKD) 6 (>60 ml/min/1.73 sqM); Potassium 4.9 mmol/L (3.5-5.1); Sodium 131 mmol/L (137-145)
[2024-09-11 16:41] LABS: Glucose,Whole Blood 102 mg/dL (70-110)
[2024-09-11 20:20] LABS: Glucose,Whole Blood 381 mg/dL (70-110)
[2024-09-12 05:57] LABS: Glucose,Whole Blood 449 mg/dL (70-110)
[2024-09-12 11:25] LABS: Glucose,Whole Blood 166 mg/dL (70-110)
--- NOTE | 2024-09-12 12:36 | P.PN ---
Subjective Progress Note Date: 09/11/24 Patient is a 34-year-old female with a past medical history of hypertension, diabetes type 1, ESRD on hemodialysis/4 times a week., Seizure disorder and hypothyroidism and also history of gastroparesis and chronic pain, anxiety/depression. Patient presents to ER with complaints of shortness of breath. Patient states that she had last hemodialysis on Wednesday. She has been doing well until 11 PM and started having shortness of breath and rapidly worsening. EMS was called and patient was transported to ER. Patient was placed on BiPAP and wrote. She was also having chest tightness along with horacio rtness of breath. Denied any worsening swelling in the legs. No fever no chills. No nausea vomiting or diarrhea. No headache or dizziness. Chest x-ray showed findings consistent with CHF exacerbation/fluid overload state. EKG showed sinus tachycardia with heart rate 105 Laboratory test showed WBC 9.2 hemoglobin 10.7 and platelets 374 Sodium 134 potassium 6.2 with slight hemolysis Chloride 98 bicarb is 25 BUN 74 and creatinine 7.58 and blood sugar 266. Lactic acid 1.0 AST 147 ALT 196 and alk phos 138, troponin 0.012 and proBNP 58,200. Patient's blood pressure was 171/120 pulse 111 respiration 24 on admission. Patient was started on nitro drip in the ER. 09/05/2024 Patient is in the MICU. Currently requiring 3 L oxygen via nasal cannula. No complaints of chest pain. Complains of shortness of breath. Also complains of nausea. No close of vomiting. Patient is also being continued on Cleviprex drip. Nitroglycerin drip has been discontinued. Patient is currently undergoing hemodialysis and planning for 4Lultrafiltration. Blood pressure is also poorly controlled with SBP in 140s. Laboratory showed WBC 12.4 hemoglobin 10.5 and platelets 341 sodium 129 potassium 5.9 chloride 87 bicarb is 17 BUN 39 creatinine 5.1 blood sugar 611 AST 68 ALT is 139 alk phos 168. Critical care team and nephrology is on board. 09/06/2024 Patient is here in the MICU. Still complains of pain. Shortness of breath is much improved. Blood pressure is also better. Nitroglycerin drip has been discontinued. Patient is currently on room air. Underwent hemodialysis yesterday. Nephrology and critical care team on board. Patient is being transferred to medical floor today. Blood sugar is elevated to 308 this morning. Started on insulin regimen and titrate dose as needed. Other laborato ry data showed A1c 8.3 phosphorus 6.9 sodium 131 and potassium 4.7 and chloride 94. 09/07/2024 Patient is in the medical floor. Resting in the bed. Awake alert and oriented x 3. Patient is getting hemodialysis with 4 L goal of ultrafiltration. Patient is currently room air. No complaints of chest pain or worsening shortness of breath. Patient still complaining of pain and nausea. Improved with medications. Blood pressure is still elevated today afternoon. Nephrology and pulmonary is on board. Laboratory data showed WBC 9 point hemoglobin 9.1 and platelets 308 sodium 126 potassium 4.4 chloride 191 bicarb is 23 BUN 13 and creatinine was 6.19 and blood sugar 228 and phosphorus 7.2. 09/08/2024 Patient is in the medical floor. Awake alert and oriented x 3. Still complains of nausea and generalized pain. Patient is also very oxygen via nasal cannula. Saturating at 90% on room air. Blood pressure is still elevated. Patient is scheduled for hemodialysis tomorrow. Laboratory data showed sodium 134 potassium 4.1 chloride 92 bicarb is 26.8 BUN 17.6 and creatinine 4.6 and blood sugar 142 and calcium 9.2. Patient has been afebrile. No headache or dizziness. No cough or sputum production. Nephrology and pulmonary is on board. 09/11/2021 Patient is lying in the bed. Awake alert and oriented. Complains of pain and shortness of breath. Blood pressure was high this morning with SBP's 170s. Patient is currently undergoing hemodialysis and blood pressure went down to 112/74. No complaints of dizziness or lightheadedness. Nosebleed has improved. Laboratory data showed sodium 131 potassium 4.9 chloride 89, bicarb is 31 BUN 31 and creatinine 8.37 and blood sugar 85. Calcium 9.2. Current medications reviewed. Objective - Vital Signs Vital signs: Vital Signs Temp 97.7 F 09/11/24 08:00 Pulse 84 09/11/24 08:00 Resp 16 09/11/24 08:00 BP 145/80 09/11/24 08:00 Pulse Ox 97 09/11/24 08:00 FiO2 40 09/04/24 02:07 Intake & Output 09/10/24 09/11/24 09/11/24 18:59 06:59 18:59 Weight 63.5 kg Other: Voiding Method Toilet # Voids 2 2 1 - Exam PHYSICAL EXAMINATION: Patient is lying in the bed , no acute distress, awake alert and oriented.. HEENT: Normocephalic. Neck is supple. Pupils reactive. Nostrils clear. Oral cavity is moist. Neck reveals no JVD, carotid bruits, or thyromegaly. CHEST EXAMINATION: Trachea is central. Symmetrical expansion. Bibasilar diminished sounds. No wheezing or rhonchi.. CARDIAC: Normal S1, S2 with no gallops. No murmurs ABDOMEN: Soft. Bowel sounds normal. No organomegaly. No abdominal bruits. Extremities: Bilateral lower extremity trace edema. No clubbing or cyanosis Neurologically awake, alert, oriented x3 with well-coordinated movements. No focal deficits noted Skin: No rash or skin lesions. Psychiatric: Coperative. Nonsuicidal Musculoskeletal: No joint swelling or deformity. - Labs CBC & Chem 7: 09/15/24 07:52 09/15/24 07:52 Labs: Abnormal Lab Results - Last 24 Hours (Table) 09/10/24 09/10/24 09/11/24 Range/Units 16:27 20:28 06:20 POC Glucose (mg/dL) 148 H 231 H 149 H (70-110) mg/dL 09/11/24 Range/Units 11:19 POC Glucose (mg/dL) 119 H (70-110) mg/dL Assessment and Plan Assessment: Hypertensive emergency requiring nitroglycerin drip on admission. Currently off drip. Acute hypoxic respiratory failure due to pulmonary edema/volume overload. Requiring BiPAP on admission. Transitioned on to room air. Elevated liver enzymes on admission. ESRD on hemodialysis Wednesday and Wednesday Hyperkalemia secondary to CKD Hypertension uncontrolled Diabetes type 1 History of CVA/TIA History of optic neuritis Hypothyroidism Anxiety/depression DVT prophylaxis with heparin subcu Plan: Patient is getting hemodialysis today. Started back on home blood pressure medications. Continue to titrate doses. Blood pressure is elevated before dialysis.. Hemodialysis as per schedule. 4 times per week. Continue with Levemir 12 units twice daily and insulin sliding scale. Started on NovoLog 3 units 3 times daily AC. Blood sugar is fluctuating. Symptomatic management for nausea and continued pain management. Continue with oxygen supplementation and follow-up closely. GI and DVT prophylaxis. Time with Patient: Greater than 30
[2024-09-12 16:51] LABS: Glucose,Whole Blood 119 mg/dL (70-110)
--- NOTE | 2024-09-12 20:11 | P.PN ---
Subjective patient is seen for follow-up for end-stage renal disease. Scheduled for dialysis today. Shortness of breath has improved. Systolic blood pressure in the 130s now. Objective - Vital Signs Vital signs: Vital Signs Temp 97.5 F L 09/12/24 17:24 Pulse 90 09/12/24 17:24 Resp 20 09/12/24 17:24 BP 129/68 09/12/24 17:24 Pulse Ox 99 09/12/24 14:00 FiO2 40 09/04/24 02:07 Intake & Output 09/12/24 09/12/24 09/13/24 06:59 18:59 06:59 Intake Total 400 Output Total 5800 Balance -5400 Weight 62.5 kg Intake: Hemodialysis 400 Output: Hemodialysis 3100 Hemodialysis Net Amount 2700 Other: Voiding Method Toilet # Voids 2 3 - Exam patient is awake, comfortable, no acute distress. Examination of the heart S1 and S2 Examination of the lungs bilateral breath sounds are heard Examination of lower extremities shows no edema - Labs CBC & Chem 7: 09/09/24 03:45 09/11/24 13:45 Labs: Abnormal Lab Results - Last 24 Hours (Table) 09/11/24 09/12/24 09/12/24 Range/Units 20:19 05:54 11:25 POC Glucose (mg/dL) 381 H 449 H 166 H (70-110) mg/dL 09/12/24 Range/Units 16:48 POC Glucose (mg/dL) 119 H (70-110) mg/dL Assessment and Plan Assessment: 1. End-stage renal disease maintained on hemodialysis on Wednesday. 2. Acute hypoxic respiratory failure currently on nasal cannula. 3. Hypertensive emergency. Improved. 4. Chronic kidney disease mineral bone disease maintained on Renvela. 5. Hyperkalemia secondary to chronic kidney disease and hyperglycemia. Entresto also noted on medication list. 6. Type 1 diabetes mellitus. 7. Volume overload. Improved with ultrafiltration. 8. Hypertonic hyponatremia secondary to hyperglycemia. Improved. 9. Metabolic acidosis secondary to hyperglycemia. Improved postdialysis. Plan: Decrease goal OF UF with hemodialysis as blood pressure is now low. May need to adjust antihypertensive medications. HERBERTH minoxidil Next hemodialysis on 09/14/2024
[2024-09-12] MEDS: IPRATROPIUM-ALBUTEROL 3 ML NEB INHALATION PRN (21:04)
[2024-09-12 21:22] LABS: Glucose,Whole Blood 514 mg/dL (70-110)
[2024-09-12 21:22] LABS: Glucose,Whole Blood 521 mg/dL (70-110)
[2024-09-12] MEDS: INSULIN DETEMIR (LEVEMIR) 100 UNIT/ML SYR SQ SCH (22:07)
[2024-09-12] MEDS: INSULIN ASPART (NovoLOG) 100 UNIT/ML VIAL SQ ONE (22:08)
[2024-09-12 23:59] LABS: Glucose,Whole Blood 435 mg/dL (70-110)
[2024-09-13 02:03] LABS: Glucose,Whole Blood 299 mg/dL (70-110)
[2024-09-13 06:59] LABS: Glucose,Whole Blood 182 mg/dL (70-110)
[2024-09-13 08:20] LABS: Basophils # (A) 0.11 X 10*3/uL (0.00-0.10); Basophils % (A) 1.1 %; Eosinophils # (A) 0.81 X 10*3/uL (0.04-0.35); Eosinophils % (A) 8.3 %; HCT 30.1 % (37.2-46.3); HGB 9.8 g/dL (12.0-15.0); Lymphocytes # (A) 1.17 X 10*3/uL (0.90-5.00); Lymphocytes % (A) 11.9 %; MCH 31.1 pg (27.0-32.0); MCHC 32.6 g/dL (32.0-37.0); MCV 95.6 FL (80.0-97.0); Mean Platelet Volume 11.2 FL (9.5-12.2); Monocytes # (A) 1.09 X 10*3/uL (0.20-1.00); Monocytes % (A) 11.1 %; NRBC Per 100 WBC 0 X 10*3/uL (0.00-0.01); Neutrophils # (A) 6.57 X 10*3/uL (1.80-7.70); Platelet Count 267 X 10*3/uL (140-440); RBC 3.15 X 10*6/uL (4.10-5.20); RDW 16.1 % (11.5-14.5); WBC 9.81 X 10*3/uL (4.50-10.00)
[2024-09-13 08:33] LABS: BUN/Creat Ratio 4.03 Ratio (12.00-20.00); Blood Urea Nitrogen 15.7 mg/dL (9.0-27.0); Calcium 9.3 mg/dL (8.7-10.3); Carbon Dioxide 27.2 mmol/L (21.6-31.8); Chloride 90 mmol/L (96-109); Glucose 276 mg/dL (70-110); Potassium 4.4 mmol/L (3.5-5.5); Sodium 129 mmol/L (135-145)
[2024-09-13 11:14] LABS: Glucose,Whole Blood 96 mg/dL (70-110)
--- NOTE | 2024-09-13 12:41 | P.PN ---
Subjective patient is seen for follow-up for end-stage renal disease. Shortness of breath has improved. Blood pressure has improved as well. Status post UF of 2.7 L yesterday. Objective - Vital Signs Vital signs: Vital Signs Temp 98.2 F 09/13/24 07:18 Pulse 86 09/13/24 07:18 Resp 17 09/13/24 07:18 BP 156/82 09/13/24 07:18 Pulse Ox 98 09/13/24 07:18 FiO2 40 09/04/24 02:07 Intake & Output 09/12/24 09/13/24 09/13/24 18:59 06:59 18:59 Intake Total 400 Output Total 5800 Balance -5400 Intake: Hemodialysis 400 Output: Hemodialysis 3100 Hemodialysis Net Amount 2700 Other: Voiding Method Toilet Toilet # Voids 3 - Exam patient is awake, comfortable, no acute distress. Examination of the heart S1 and S2 Examination of the lungs bilateral breath sounds are heard Abdomen is soft nontender Examination of lower extremities shows no edema - Labs CBC & Chem 7: 09/13/24 03:35 09/13/24 03:35 Labs: Abnormal Lab Results - Last 24 Hours (Table) 09/12/24 09/12/24 09/12/24 Range/Units 16:48 21:18 21:19 RBC (4.10-5.20) X 10*6/uL Hgb (12.0-15.0) g/dL Hct (37.2-46.3) % RDW (11.5-14.5) % Immature Gran # (0.00-0.04) X 10*3/uL Monocytes # (0.20-1.00) X 10*3/uL Eosinophils # (0.04-0.35) X 10*3/uL Basophils # (0.00-0.10) X 10*3/uL Sodium (135-145) mmol/L Chloride (96-109) mmol/L Creatinine (0.6-1.5) mg/dL Est GFR (CKD-EPI) (>=60) BUN/Creatinine Ratio (12.00-20.00) Ratio Glucose (70-110) mg/dL POC Glucose (mg/dL) 119 H 521 H* 514 H* (70-110) mg/dL 09/12/24 09/13/2409/13/24 Range/Units 23:58 02:01 03:35 RBC 3.15 L (4.10-5.20) X 10*6/uL Hgb 9.8 L (12.0-15.0) g/dL Hct 30.1 L (37.2-46.3) % RDW 16.1 H (11.5-14.5) % Immature Gran # 0.06 H (0.00-0.04) X 10*3/uL Monocytes # 1.09 H (0.20-1.00) X 10*3/uL Eosinophils # 0.81 H (0.04-0.35) X 10*3/uL Basophils # 0.11 H (0.00-0.10) X 10*3/uL Sodium (135-145) mmol/L Chloride (96-109) mmol/L Creatinine (0.6-1.5) mg/dL Est GFR (CKD-EPI) (>=60) BUN/Creatinine Ratio (12.00-20.00) Ratio Glucose (70-110) mg/dL POC Glucose (mg/dL) 435 H 299 H (70-110) mg/dL 09/13/24 09/13/24 Range/Units 03:35 06:56 RBC (4.10-5.20) X 10*6/uL Hgb (12.0-15.0) g/dL Hct (37.2-46.3) % RDW (11.5-14.5) % Immature Gran # (0.00-0.04) X 10*3/uL Monocytes # (0.20-1.00) X 10*3/uL Eosinophils # (0.04-0.35) X 10*3/uL Basophils # (0.00-0.10) X 10*3/uL Sodium 129 L (135-145) mmol/L Chloride 90 L (96-109) mmol/L Creatinine 3.9 H (0.6-1.5) mg/dL Est GFR (CKD-EPI) 15 L (>=60) BUN/Creatinine Ratio 4.03 L (12.00-20.00) Ratio Glucose 276 H (70-110) mg/dL POC Glucose (mg/dL) 182 H (70-110) mg/dL Assessment and Plan Assessment: 1. End-stage renal disease maintained on hemodialysis on Wednesday. 2. Acute hypoxic respiratory failure currently on nasal cannula. 3. Hypertensive emergency. Improved. 4. Chronic kidney disease mineral bone disease maintained on Renvela. 5. Hyperkalemia secondary to chronic kidney disease and hyperglycemia. Entresto also noted on medication list. 6. Type 1 diabetes mellitus. 7. Volume overload. Improved with ultrafiltration. 8. Hypertonic hyponatremia secondary to hyperglycemia. Improved. 9. Metabolic acidosis secondary to hyperglycemia. Improved postdialysis. Plan: hemodialysis in a.m. encouraged increased oral intake
--- NOTE | 2024-09-13 15:31 | P.GSCN ---
History of Present Illness Consult date: 09/13/24 Reason for Consult: Hematoma and fluid buildup in palms Requesting physician: Annette Read History of present illness: This is a pleasant 34-year-old female who presented to the emergency department 9 days ago with complaints of shortness of breath. She has a past medical history including end-stage renal disease on hemodialysis, diabetes mellitus, GERD, hypertension, seizure disorder and thyroid disorder. She is known to Dr. Razo for end-stage renal disease requiring hemodialysis. She has right IJ catheter in place and is supposed to have fistula creation earlier this month that was canceled. She was admitted with hypertensive urgency. Apparently during her hospitalization she has been complaining about right hand pain. States that it has been painful for about 3 weeks duration. There is area of bruising noted on her right palm. It is only affecting her right hand. States that causing some pain into her hand and fingers. Does not recall any injury. Review of Systems A 14 point review systems was completed all pertinent positives and negatives as stated in the HPI. Past Medical History Past Medical History: Diabetes Mellitus, GERD/Reflux, Hypertension, Renal Disease, Seizure Disorder, Thyroid Disorder Additional Past Medical History / Comment(s): Neuropathy, last seizure 2020, gastroparesis, headaches with dialysis, states "fast heart rate" since giving ., receives Hemodialysis Wednesday- and Saturdays at [facility] right chest hemodialysis catheter., severe HTN. patient awaiting Kidney and Pancrease Transplant. , states sometimes she has had stroke -like symptoms but no stroke., hx of c-diff 2013. History of Any Multi-Drug Resistant Organisms: None Reported Year Discovered:: None MDRO Source:: None Past Surgical History: Adenoidectomy, Section, Cholecystectomy, Orthopedic Surgery, Tonsillectomy Additional Past Surgical History / Comment(s): 2 KNEE SCOPES, EAR TUBES, additional left knee surgery related to fracture, new port a cath jul 29, eye surgeries for diabetic retinopathy. Past Anesthesia/Blood Transfusion Reactions: Previous Problems w/ Anesthesia Additional Past Anesthesia/Blood Transfusion Reaction / Comm: confusion Past Psychological History: Anxiety, Depression Smoking Status: Former smoker Past Alcohol Use History: None Reported Past Drug Use History: Marijuana, Methamphetamine - Past Family History Father History Unknown: Yes Family Medical History: Unable to Obtain Mother History Unknown: Yes Family Medical History: No Reported History Grandfather History Unknown: Yes Family Medical History: Coronary Artery Disease (CAD) Additional Family Medical History / Comment(s): Diabetes mellitus type 2 Medications and Allergies Home Medications Medication Instructions Recorded Confirmed Type Docusate [Colace] 100 mg PO DAILY@0800 02/05/24 09/04/24 History Lidocaine 4% Patch 1 patch TOPICAL DAILY@0800 02/05/24 09/04/24 History Magnesium Hydroxide [Milk of 7,200 mg PO DAILY PRN 02/05/24 09/04/24 History Magnesia Concentrate] Ipratropium-Albuterol Nebulize 3 ml INHALATION RT-TID PRN each 02/14/24 09/04/24 Rx [Duoneb 0.5 mg-3 mg/3 ml Soln] polyethylene glycoL 3350 [Miralax] 17 gm PO AC-LUNCH #527 gm 02/14/24 09/04/24 Rx Acetaminophen [Tylenol] 650 mg PO Q4H PRN 02/18/24 09/04/24 History Biotene Dry Mouth/Throat 10 ml PO BID PRN 02/18/24 09/04/24 History Melatonin 1 mg PO HS tab 02/25/24 09/04/24 Rx Butalb/APAP/Caff 50-325-40Mg 1 tab PO Q4HR PRN 03/14/24 09/04/24 History [Fioricet 50-325-40] Darbepoetin Artur [Aranesp] 40 mcg SQ MO 03/14/24 09/04/24 History Loratadine [Claritin] 5 mg PO DAILY tab 03/30/24 09/04/24 Rx INSULIN ASPART (NovoLOG) [NovoLOG See Protocol SQ ACHS 04/16/24 09/04/24 History (formulary)] Aspirin 81 mg PO DAILY@0800 #30 tab 05/18/24 09/04/24 Rx Famotidine [Pepcid] 20 mg PO BID #60 tab 07/11/24 09/04/24 Rx Insulin Glargine [Lantus Vial] 12 unit SQ BID #1 each 07/11/24 09/04/24 Rx Ondansetron [Zofran] 4 mg PO Q8HR PRN #20 tab 07/11/24 09/04/24 Rx Atorvastatin [Lipitor] 40 mg PO DIRECTED 08/14/24 09/04/24 History Divalproex ER [Depakote ER] 500 mg PO DIRECTED 08/14/24 09/04/24 History Folic Acid-Vit B Complex-Vit C 1 cap PO DIRECTED 08/14/24 09/04/24 History [Nephrocaps] HYDROcodone/APAP 7.5-325MG [[place] 1 tab PO DIRECTED PRN 08/14/24 09/04/24 History 7.5-325] Levothyroxine Sodium [Synthroid] 175 mcg PO DIRECTED 08/14/24 09/04/24 History Metoclopramide [Reglan] 5 mg PO DIRECTED PRN 08/14/24 09/04/24 History Pantoprazole [Protonix] 40 mg PO DIRECTED 08/14/24 09/04/24 History Sertraline [Zoloft] 200 mg PO DIRECTED 08/14/24 09/04/24 History hydrALAZINE HCL [Apresoline] 150 mg PO QID 08/14/24 09/04/24 History methocarbamoL [Robaxin-750] 750 mg PO DIRECTED 08/14/24 09/04/24 History traZODone HCL [Desyrel] 50 mg PO DIRECTED 08/14/24 09/04/24 History Labetalol [Trandate] 200 mg PO BID 30 Days #60 tab 08/24/24 09/04/24 Rx amLODIPine [Norvasc] 10 mg PO DAILY 30 Days #30 tab 08/24/24 09/04/24 Rx ALPRAZolam [Xanax] 0.25 mg PO BID PRN 09/04/24 09/04/24 History Calcium Acetate [Phoslo] 2,001 mg PO TID-W/MEALS 09/04/24 09/04/24 History Calcium Acetate [Phoslo] 667 mg PO DAILY PRN 09/04/24 09/04/24 History Isosorbide Mononitrate ER [Imdur] 30 mg PO DAILY 09/04/24 09/04/24 History Sacubitril/Valsartan [Entresto 49 1 tab PO BID 09/04/24 09/04/24 History mg-51 mg Tablet] cloNIDine HCL [Catapres] 0.3 mg PO TID 09/04/24 09/04/24 History Allergies Allergy/AdvReac Type Severity Reaction Status Date / Time hydromorphone HCl Allergy Anaphylaxis Verified 09/04/24 08:48 [From Dilaudid] propoxyphene Allergy Rash/Hives Verified 09/04/24 08:48 [From Darvocet-N] tramadol Allergy Anaphylaxis Verified 09/04/24 08:48 ibuprofen [From Motrin] AdvReac unable to Verified 09/04/24 08:48 take due to kidney disease venom-honey bee AdvReac passes out Verified 09/04/24 08:48 [bee venom (honey bee)] Surgical - Exam Vital Signs Temp Pulse Resp BP Pulse Ox 97.5 F L 111 H 24 171/120 98 09/04/24 01:55 09/04/24 01:55 09/04/24 01:55 09/04/24 01:55 09/04/24 01:55 General appearance: The patient is alert, oriented, appears in no acute distress. HET: Head is normocephalic and atraumatic. Pupils are equal and reactive. Neck: Supple. Heart: Regular. Lungs: Equal expansion, normal respiratory effort. Abdomen: Soft, nontender, nondistended. Extremities: Normal skin color and turgor. Bilateral palpable radial pulses. Right hand full range of motion, area of bruising noted on palm of hand near wrist that is tender with palpation. Neurological: No focal deficits. Strength and sensation are grossly intact. Results - Labs 09/13/24 03:35 09/13/24 03:35 Abnormal Lab Results - Last 24 Hours (Table) 09/12/24 09/12/24 09/12/24 Range/Units 16:48 21:18 21:19 RBC (4.10-5.20) X 10*6/uL Hgb (12.0-15.0) g/dL Hct (37.2-46.3) % RDW (11.5-14.5) % Immature Gran # (0.00-0.04) X 10*3/uL Monocytes # (0.20-1.00) X 10*3/uL Eosinophils # (0.04-0.35) X 10*3/uL Basophils # (0.00-0.10) X 10*3/uL Sodium (135-145) mmol/L Chloride (96-109) mmol/L Creatinine (0.6-1.5) mg/dL Est GFR (CKD-EPI) (>=60) BUN/Creatinine Ratio (12.00-20.00) Ratio Glucose (70-110) mg/dL POC Glucose (mg/dL) 119 H 521 H* 514 H* (70-110) mg/dL 09/12/24 09/13/24 09/13/24 Range/Units 23:58 02:01 03:35 RBC 3.15 L (4.10-5.20) X 10*6/uL Hgb 9.8 L (12.0-15.0) g/dL Hct 30.1 L (37.2-46.3) % RDW 16.1 H (11.5-14.5) % Immature Gran # 0.06 H (0.00-0.04) X 10*3/uL Monocytes # 1.09 H (0.20-1.00) X 10*3/uL Eosinophils # 0.81 H (0.04-0.35) X 10*3/uL Basophils # 0.11 H (0.00-0.10) X 10*3/uL Sodium (135-145) mmol/L Chloride (96-109) mmol/L Creatinine (0.6-1.5) mg/dL Est GFR (CKD-EPI) (>=60) BUN/Creatinine Ratio (12.00-20.00) Ratio Glucose (70-110) mg/dL POC Glucose (mg/dL) 435 H 299 H (70-110) mg/dL 09/13/24 09/13/24 Range/Units 03:35 06:56 RBC (4.10-5.20) X 10*6/uL Hgb (12.0-15.0) g/dL Hct (37.2-46.3) % RDW (11.5-14.5) % Immature Gran # (0.00-0.04) X 10*3/uL Monocytes # (0.20-1.00) X 10*3/uL Eosinophils # (0.04-0.35) X 10*3/uL Basophils # (0.00-0.10) X 10*3/uL Sodium 129 L (135-145) mmol/L Chloride 90 L (96-109) mmol/L Creatinine 3.9 H (0.6-1.5) mg/dL Est GFR (CKD-EPI) 15 L (>=60) BUN/Creatinine Ratio 4.03 L (12.00-20.00) Ratio Glucose 276 H (70-110) mg/dL POC Glucose (mg/dL) 182 H (70-110) mg/dL Diabetes panel 09/13/24 Range/Units 03:35 Sodium 129 L (135-145) mmol/L Potassium 4.4 (3.5-5.5) mmol/L Chloride 90 L (96-109) mmol/L Carbon Dioxide 27.2 (21.6-31.8) mmol/L BUN 15.7 (9.0-27.0) mg/dL Creatinine 3.9 H (0.6-1.5) mg/dL Glucose 276 H (70-110) mg/dL Calcium 9.3 (8.7-10.3) mg/dL Calcium panel 09/13/24 Range/Units 03:35 Calcium 9.3 (8.7-10.3) mg/dL Pituitary panel 09/13/24 Range/Units 03:35 Sodium 129 L (135-145) mmol/L Potassium 4.4 (3.5-5.5) mmol/L Chloride 90 L (96-109) mmol/L Carbon Dioxide 27.2 (21.6-31.8) mmol/L BUN 15.7 (9.0-27.0) mg/dL Creatinine 3.9 H (0.6-1.5) mg/dL Glucose 276 H (70-110) mg/dL Calcium 9.3 (8.7-10.3) mg/dL Adrenal panel 09/13/24 Range/Units 03:35 Sodium 129 L (135-145) mmol/L Potassium 4.4 (3.5-5.5) mmol/L Chloride 90 L (96-109) mmol/L Carbon Dioxide 27.2 (21.6-31.8) mmol/L BUN 15.7 (9.0-27.0) mg/dL Creatinine 3.9 H (0.6-1.5) mg/dL Glucose 276 H (70-110) mg/dL Calcium 9.3 (8.7-10.3) mg/dL - Imaging Comments: Right hand x-ray reports no acute osseous abnormality seen Assessment and Plan Assessment: 1. Right and pain Plan: 1. There is small area of bruising on right palm, no apparent hematoma, likely secondary from injury/contusion 2. There is no indication for any vascular surgical intervention 3. Would defer to orthopedic hand surgeon Thank you for this consultation, we will sign off at this time. Patient is to follow-up with Dr. Razo as previously scheduled. The impression and plan of care has been dictated as directed. Dr. Razo I performed a history and examination of this patient, discussed the same with the dictator. I agree with the dictator's note ,documented as a scribe. Any additional findings or plans will be noted.
[2024-09-13 17:22] LABS: Glucose,Whole Blood 349 mg/dL (70-110)
[2024-09-13] MEDS: NITROGLYCERIN SL TABS 0.4 MG TAB SUBLINGUAL PRN (18:06)
[2024-09-13 19:41] LABS: Glucose,Whole Blood 267 mg/dL (70-110)
[2024-09-13 19:54] LABS: Glucose,Whole Blood 236 mg/dL (70-110)
[2024-09-13] MEDS: METOCLOPRAMIDE 5 MG/ML 2 ML VIAL IVP PRN (21:03)
[2024-09-13] MEDS: traZODone HCL 50 MG TAB PO SCH (23:29)
--- NOTE | 2024-09-14 00:17 | P.PN ---
Subjective Progress Note Date: 09/12/24 Patient is a 34-year-old female with a past medical history of hypertension, diabetes type 1, ESRD on hemodialysis/4 times a week., Seizure disorder and hypothyroidism and also history of gastroparesis and chronic pain, anxiety/depression. Patient presents to ER with complaints of shortness of breath. Patient states that she had last hemodialysis on Wednesday. She has been doing well until 11 PM and started having shortness of breath and rapidly worsening. EMS was called and patient was transported to ER. Patient was placed on BiPAP and wrote. She was also having chest tightness along with horacio rtness of breath. Denied any worsening swelling in the legs. No fever no chills. No nausea vomiting or diarrhea. No headache or dizziness. Chest x-ray showed findings consistent with CHF exacerbation/fluid overload state. EKG showed sinus tachycardia with heart rate 105 Laboratory test showed WBC 9.2 hemoglobin 10.7 and platelets 374 Sodium 134 potassium 6.2 with slight hemolysis Chloride 98 bicarb is 25 BUN 74 and creatinine 7.58 and blood sugar 266. Lactic acid 1.0 AST 147 ALT 196 and alk phos 138, troponin 0.012 and proBNP 58,200. Patient's blood pressure was 171/120 pulse 111 respiration 24 on admission. Patient was started on nitro drip in the ER. 09/05/2024 Patient is in the MICU. Currently requiring 3 L oxygen via nasal cannula. No complaints of chest pain. Complains of shortness of breath. Also complains of nausea. No close of vomiting. Patient is also being continued on Cleviprex drip. Nitroglycerin drip has been discontinued. Patient is currently undergoing hemodialysis and planning for 4Lultrafiltration. Blood pressure is also poorly controlled with SBP in 140s. Laboratory showed WBC 12.4 hemoglobin 10.5 and platelets 341 sodium 129 potassium 5.9 chloride 87 bicarb is 17 BUN 39 creatinine 5.1 blood sugar 611 AST 68 ALT is 139 alk phos 168. Critical care team and nephrology is on board. 09/06/2024 Patient is here in the MICU. Still complains of pain. Shortness of breath is much improved. Blood pressure is also better. Nitroglycerin drip has been discontinued. Patient is currently on room air. Underwent hemodialysis yesterday. Nephrology and critical care team on board. Patient is being transferred to medical floor today. Blood sugar is elevated to 308 this morning. Started on insulin regimen and titrate dose as needed. Other laborato ry data showed A1c 8.3 phosphorus 6.9 sodium 131 and potassium 4.7 and chloride 94. 09/07/2024 Patient is in the medical floor. Resting in the bed. Awake alert and oriented x 3. Patient is getting hemodialysis with 4 L goal of ultrafiltration. Patient is currently room air. No complaints of chest pain or worsening shortness of breath. Patient still complaining of pain and nausea. Improved with medications. Blood pressure is still elevated today afternoon. Nephrology and pulmonary is on board. Laboratory data showed WBC 9 point hemoglobin 9.1 and platelets 308 sodium 126 potassium 4.4 chloride 191 bicarb is 23 BUN 13 and creatinine was 6.19 and blood sugar 228 and phosphorus 7.2. 09/08/2024 Patient is in the medical floor. Awake alert and oriented x 3. Still complains of nausea and generalized pain. Patient is also very oxygen via nasal cannula. Saturating at 90% on room air. Blood pressure is still elevated. Patient is scheduled for hemodialysis tomorrow. Laboratory data showed sodium 134 potassium 4.1 chloride 92 bicarb is 26.8 BUN 17.6 and creatinine 4.6 and blood sugar 142 and calcium 9.2. Patient has been afebrile. No headache or dizziness. No cough or sputum production. Nephrology and pulmonary is on board. 09/12/2021 Patient is lying in the bed. Awake alert and oriented. Complains of pain and shortness of breath. Blood pressure was high this morning with SBP's 170s. Patient is currently undergoing hemodialysis and blood pressure went down to 112 /74. No complaints of dizziness or lightheadedness. Nosebleed has improved. Laboratory data showed sodium 131 potassium 4.9 chloride 89, bicarb is 31 BUN 31 and creatinine 8.37 and blood sugar 85. Calcium 9.2. Current medications reviewed. Objective - Vital Signs Vital signs: Vital Signs Temp 98.6 F 09/12/24 20:00 Pulse 95 09/12/24 21:23 Resp 16 09/12/24 20:00 BP 116/68 09/12/24 20:00 Pulse Ox 97 09/12/24 20:00 FiO2 40 09/04/24 02:07 Intake & Output 09/12/24 09/12/24 09/13/24 06:59 18:59 06:59 Intake Total 400 Output Total 5800 Balance -5400 Weight 62.5 kg Intake: Hemodialysis 400 Output: Hemodialysis 3100 Hemodialysis Net Amount 2700 Other: Voiding Method Toilet Toilet # Voids 2 3 - Exam PHYSICAL EXAMINATION: Patient is lying in the bed , no acute distress, awake alert and oriented.. HEENT: Normocephalic. Neck is supple. Pupils reactive. Nostrils clear. Oral cavity is moist. Neck reveals no JVD, carotid bruits, or thyromegaly. CHEST EXAMINATION: Trachea is central. Symmetrical expansion. Bibasilar diminished sounds. No wheezing or rhonchi.. CARDIAC: Normal S1, S2 with no gallops. No murmurs ABDOMEN: Soft. Bowel sounds normal. No organomegaly. No abdominal bruits. Extremities: Bilateral lower extremity trace edema. No clubbing or cyanosis Neurologically awake, alert, oriented x3 with well-coordinated movements. No focal deficits noted Skin: No rash or skin lesions. Psychiatric: Coperative. Nonsuicidal Musculoskeletal: No joint swelling or deformity. - Labs CBC & Chem 7: 09/13/24 03:35 09/13/24 03:35 Labs: Abnormal Lab Results - Last 24 Hours (Table) 09/12/24 09/12/24 09/12/24 Range/Units 05:54 11:25 16:48 POC Glucose (mg/dL) 449 H 166 H 119 H (70-110) mg/dL 09/12/24 09/12/24 Range/Units 21:18 21:19 POC Glucose (mg/dL) 521 H* 514 H* (70-110) mg/dL Assessment and Plan Assessment: Hypertensive emergency requiring nitroglycerin drip on admission. Currently off drip. Acute hypoxic respiratory failure due to pulmonary edema/volume overload. Requiring BiPAP on admission. Transitioned on to room air. Elevated liver enzymes on admission. ESRD on hemodialysis Wednesday and Wednesday Hyperkalemia secondary to CKD Hypertension uncontrolled Diabetes type 1 History of CVA/TIA History of optic neuritis Hypothyroidism Anxiety/depression DVT prophylaxis with heparin subcu Plan: Patient is getting hemodialysis today. Started back on home blood pressure medications. Continue to titrate doses. B lood pressure is elevated before dialysis.. Hemodialysis as per schedule. 4 times per week. Continue with Levemir 12 units twice daily and insulin sliding scale. Started on NovoLog 3 units 3 times daily AC. Blood sugar is fluctuating. Symptomatic management for nausea and continued pain management. Continue with oxygen supplementation and follow-up closely. GI and DVT prophylaxis. Time with Patient: Greater than 30
--- NOTE | 2024-09-14 00:20 | P.PN ---
Subjective Progress Note Date: 09/13/24 Patient is a 34-year-old female with a past medical history of hypertension, diabetes type 1, ESRD on hemodialysis/4 times a week., Seizure disorder and hypothyroidism and also history of gastroparesis and chronic pain, anxiety/depression. Patient presents to ER with complaints of shortness of breath. Patient states that she had last hemodialysis on Wednesday. She has been doing well until 11 PM and started having shortness of breath and rapidly worsening. EMS was called and patient was transported to ER. Patient was placed on BiPAP and wrote. She was also having chest tightness along with horacio rtness of breath. Denied any worsening swelling in the legs. No fever no chills. No nausea vomiting or diarrhea. No headache or dizziness. Chest x-ray showed findings consistent with CHF exacerbation/fluid overload state. EKG showed sinus tachycardia with heart rate 105 Laboratory test showed WBC 9.2 hemoglobin 10.7 and platelets 374 Sodium 134 potassium 6.2 with slight hemolysis Chloride 98 bicarb is 25 BUN 74 and creatinine 7.58 and blood sugar 266. Lactic acid 1.0 AST 147 ALT 196 and alk phos 138, troponin 0.012 and proBNP 58,200. Patient's blood pressure was 171/120 pulse 111 respiration 24 on admission. Patient was started on nitro drip in the ER. 09/05/2024 Patient is in the MICU. Currently requiring 3 L oxygen via nasal cannula. No complaints of chest pain. Complains of shortness of breath. Also complains of nausea. No close of vomiting. Patient is also being continued on Cleviprex drip. Nitroglycerin drip has been discontinued. Patient is currently undergoing hemodialysis and planning for 4Lultrafiltration. Blood pressure is also poorly controlled with SBP in 140s. Laboratory showed WBC 12.4 hemoglobin 10.5 and platelets 341 sodium 129 potassium 5.9 chloride 87 bicarb is 17 BUN 39 creatinine 5.1 blood sugar 611 AST 68 ALT is 139 alk phos 168. Critical care team and nephrology is on board. 09/06/2024 Patient is here in the MICU. Still complains of pain. Shortness of breath is much improved. Blood pressure is also better. Nitroglycerin drip has been discontinued. Patient is currently on room air. Underwent hemodialysis yesterday. Nephrology and critical care team on board. Patient is being transferred to medical floor today. Blood sugar is elevated to 308 this morning. Started on insulin regimen and titrate dose as needed. Other laborato ry data showed A1c 8.3 phosphorus 6.9 sodium 131 and potassium 4.7 and chloride 94. 09/07/2024 Patient is in the medical floor. Resting in the bed. Awake alert and oriented x 3. Patient is getting hemodialysis with 4 L goal of ultrafiltration. Patient is currently room air. No complaints of chest pain or worsening shortness of breath. Patient still complaining of pain and nausea. Improved with medications. Blood pressure is still elevated today afternoon. Nephrology and pulmonary is on board. Laboratory data showed WBC 9 point hemoglobin 9.1 and platelets 308 sodium 126 potassium 4.4 chloride 191 bicarb is 23 BUN 13 and creatinine was 6.19 and blood sugar 228 and phosphorus 7.2. 09/08/2024 Patient is in the medical floor. Awake alert and oriented x 3. Still complains of nausea and generalized pain. Patient is also very oxygen via nasal cannula. Saturating at 90% on room air. Blood pressure is still elevated. Patient is scheduled for hemodialysis tomorrow. Laboratory data showed sodium 134 potassium 4.1 chloride 92 bicarb is 26.8 BUN 17.6 and creatinine 4.6 and blood sugar 142 and calcium 9.2. Patient has been afebrile. No headache or dizziness. No cough or sputum production. Nephrology and pulmonary is on board. 09/12/2021 Patient is lying in the bed. Awake alert and oriented. Complains of pain and shortness of breath. Blood pressure was high this morning with SBP's 170s. Patient is currently undergoing hemodialysis and blood pressure went down to 112 /74. No complaints of dizziness or lightheadedness. Nosebleed has improved. Laboratory data showed sodium 131 potassium 4.9 chloride 89, bicarb is 31 BUN 31 and creatinine 8.37 and blood sugar 85. Calcium 9.2. 09/13/2024 Patient is currently sitting in the bed. Awake alert and oriented. Still complains of pain mainly generalized.. Shortness of breath is slightly better. No fever no chills. Blood sugar is labile. Patient is scheduled for hemodialysis tomorrow.. Systolic blood pressure is better. Patient is also complaining of right hand pain at the base of the thumb with a bump probable fluid collection. Laboratory data reviewed.Sodium 129 potassium 4.4 chloride of 90 bicarb 27.2 BUN 15.7 and creatinine 3.9 blood sugar 276. Current medications reviewed. Objective - Vital Signs Vital signs: Vital Signs Temp 98.2 F 09/13/24 07:18 Pulse 86 09/13/24 07:18 Resp 17 09/13/24 07:18 BP 156/82 09/13/24 07:18 Pulse Ox 98 09/13/24 07:18 FiO2 40 09/04/24 02:07 Intake & Output 09/12/24 09/13/24 09/13/24 18:59 06:59 18:59 Intake Total 400 Output Total 5800 Balance -5400 Intake: Hemodialysis 400 Output: Hemodialysis 3100 Hemodialysis Net Amount 2700 Other: Voiding Method Toilet Toilet # Voids 3 - Exam PHYSICAL EXAMINATION: Patient is lying in the bed , no acute distress, awake alert and oriented.. HEENT: Normocephalic. Neck is supple. Pupils reactive. Nostrils clear. Oral cavity is moist. Neck reveals no JVD, carotid bruits, or thyromegaly. CHEST EXAMINATION: Trachea is central. Symmetrical expansion. Bibasilar diminished sounds. No wheezing or rhonchi.. CARDIAC: Normal S1, S2 with no gallops. No murmurs ABDOMEN: Soft. Bowel sounds normal. No organomegaly. No abdominal bruits. Extremities: Bilateral lower extremity trace edema. Tenderness and palpable fluid collection at the right palm/thumb base. No clubbing or cyanosis Neurologically awake, alert, oriented x3 with well-coordinated movements. No focal deficits noted Skin: No rash or skin lesions. Psychiatric: Coperative. Nonsuicidal Musculoskeletal: No joint swelling or deformity. - Labs CBC & Chem 7: 09/13/24 03:35 09/13/24 03:35 Labs: Abnormal Lab Results - Last 24 Hours (Table) 09/12/24 09/12/24 09/12/24 Range/Units 16:48 21:18 21:19 RBC (4.10-5.20) X 10*6/uL Hgb (12.0-15.0) g/dL Hct (37.2-46.3) % RDW (11.5-14.5) % Immature Gran # (0.00-0.04) X 10*3/uL Monocytes # (0.20-1.00) X 10*3/uL Eosinophils # (0.04-0.35) X 10*3/uL Basophils # (0.00-0.10) X 10*3/uL Sodium (135-145) mmol/L Chloride (96-109) mmol/L Creatinine (0.6-1.5) mg/dL Est GFR (CKD-EPI) (>=60) BUN/Creatinine Ratio (12.00-20.00) Ratio Glucose (70-110) mg/dL POC Glucose (mg/dL) 119 H 521 H* 514 H* (70-110) mg/dL 09/12/24 09/13/24 09/13/24 Range/Units 23:58 02:01 03:35 RBC 3.15 L (4.10-5.20) X 10*6/uL Hgb 9.8 L (12.0-15.0) g/dL Hct 30.1 L (37.2-46.3) % RDW 16.1 H (11.5-14.5) % Immature Gran # 0.06 H (0.00-0.04) X 10*3/uL Monocytes # 1.09 H (0.20-1.00) X 10*3/uL Eosinophils # 0.81 H (0.04-0.35) X 10*3/uL Basophils # 0.11 H (0.00-0.10) X 10*3/uL Sodium (135-145) mmol/L Chloride (96-109) mmol/L Creatinine (0.6-1.5) mg/dL Est GFR (CKD-EPI) (>=60) BUN/Creatinine Ratio (12.00-20.00) Ratio Glucose (70-110) mg/dL POC Glucose (mg/dL) 435 H 299 H (70-110) mg/dL 09/13/24 09/13/24 Range/Units 03:35 06:56 RBC (4.10-5.20) X 10*6/uL Hgb (12.0-15.0) g/dL Hct (37.2-46.3) % RDW (11.5-14.5) % Immature Gran # (0.00-0.04) X 10*3/uL Monocytes # (0.20-1.00) X 10*3/uL Eosinophils # (0.04-0.35) X 10*3/uL Basophils # (0.00-0.10) X 10*3/uL Sodium 129 L (135-145) mmol/L Chloride 90 L (96-109) mmol/L Creatinine 3.9 H (0.6-1.5) mg/dL Est GFR (CKD-EPI) 15 L (>=60) BUN/Creatinine Ratio 4.03 L (12.00-20.00) Ratio Glucose 276 H (70-110) mg/dL POC Glucose (mg/dL) 182 H (70-110) mg/dL Assessment and Plan Assessment: Hypertensive emergency requiring nitroglycerin drip on admission. Currently off drip. Acute hypoxic respiratory failure due to pulmonary edema/volume overload. Requiring BiPAP on admission. Transitioned on to room air. Elevated liver enzymes on admission. ESRD on hemodialysis Wednesday and Wednesday Hyperkalemia secondary to CKD Hypertension uncontrolled Diabetes type 1 History of CVA/TIA History of optic neuritis Hypothyroidism Anxiety/depression DVT prophylaxis with heparin subcu Plan: Patient is getting hemodialysis tomorrow. Started back on home blood pressure medications. Continue to titrate doses. Blood pressure is better controlled. Hemodialysis as per schedule. 4 times per week. Patient was started on Levemir 15 units twice daily along with sliding scale.. Symptomatic management for nausea and continued pain management. Continue with oxygen supplementation and follow-up closely. GI and DVT prophylaxis. Anticipate discharge home after dialysis tomorrow. Time with Patient: Greater than 30
[2024-09-14 06:30] LABS: Glucose,Whole Blood 71 mg/dL (70-110)
[2024-09-14] MEDS: INSULIN DETEMIR (LEVEMIR) 100 UNIT/ML SYR SQ SCH ×2 (06:57→20:26)
[2024-09-14 07:19] LABS: Glucose,Whole Blood 67 mg/dL (70-110)
[2024-09-14 08:04] LABS: Glucose,Whole Blood 72 mg/dL (70-110)
[2024-09-14 08:47] LABS: BUN/Creat Ratio 4.18 Ratio (12.00-20.00); Blood Urea Nitrogen 25.1 mg/dL (9.0-27.0); Calcium 9.7 mg/dL (8.7-10.3); Carbon Dioxide 25.9 mmol/L (21.6-31.8); Chloride 91 mmol/L (96-109); Glucose 104 mg/dL (70-110); Potassium 4.6 mmol/L (3.5-5.5); Sodium 131 mmol/L (135-145)
[2024-09-14] MEDS: LORATADINE 10 MG TAB PO SCH (09:26)
[2024-09-14 10:22] LABS: Glucose,Whole Blood 137 mg/dL (70-110)
[2024-09-14 11:38] LABS: Glucose,Whole Blood 198 mg/dL (70-110)
--- NOTE | 2024-09-14 12:07 | P.PN ---
Subjective patient is seen for follow-up for end-stage renal disease. Shortness of breath has improved. Blood pressure has improved as well. Objective - Vital Signs Vital signs: Vital Signs Temp 98.9 F 09/14/24 08:00 Pulse 81 09/14/24 08:00 Resp 18 09/14/24 08:00 BP 146/84 09/14/24 08:00 Pulse Ox 100 09/14/24 08:00 FiO2 40 09/04/24 02:07 Intake & Output 09/13/24 09/14/24 09/14/24 18:59 06:59 18:59 Intake Total 1810 Balance 1810 Weight 60 kg Intake: Oral 1810 Other: Voiding Method Toilet Toilet # Voids 4 2 - Exam patient is awake, comfortable, no acute distress. Examination of the heart S1 and S2 Examination of the lungs bilateral breath sounds are heard Abdomen is soft nontender Examination of lower extremities shows no edema - Labs CBC & Chem 7: 09/13/24 03:35 09/14/24 03:51 Labs: Abnormal Lab Results - Last 24 Hours (Table) 09/13/24 09/13/24 09/13/24 Range/Units 17:20 19:38 19:52 Sodium (135-145) mmol/L Chloride (96-109) mmol/L Anion Gap (4.00-12.00) mmol/L Creatinine (0.6-1.5) mg/dL Est GFR (CKD-EPI) (>=60) BUN/Creatinine Ratio (12.00-20.00) Ratio POC Glucose (mg/dL) 349 H 267 H 236 H (70-110) mg/dL Troponin I (0.000-0.034) ng/mL 09/14/24 09/14/24 09/14/24 Range/Units 03:51 04:17 07:17 Sodium 131 L (135-145) mmol/L Chloride 91 L (96-109) mmol/L Anion Gap 14.10 H (4.00-12.00) mmol/L Creatinine 6.0 H (0.6-1.5) mg/dL Est GFR (CKD-EPI) 9 L (>=60) BUN/Creatinine Ratio 4.18 L (12.00-20.00) Ratio POC Glucose (mg/dL) 67 L (70-110) mg/dL Troponin I 0.042 H* (0.000-0.034) ng/mL 09/14/24 09/14/24 09/14/24 Range/Units 09:46 10:20 11:37 Sodium (135-145) mmol/L Chloride (96-109) mmol/L Anion Gap (4.00-12.00) mmol/L Creatinine (0.6-1.5) mg/dL Est GFR (CKD-EPI) (>=60) BUN/Creatinine Ratio (12.00-20.00) Ratio POC Glucose (mg/dL) 137 H 198 H (70-110) mg/dL Troponin I 0.054 H* (0.000-0.034) ng/mL Assessment and Plan Assessment: 1. End-stage renal disease maintained on hemodialysis on Wednesday. 2. Acute hypoxic respiratory failure currently on nasal cannula. 3. Hypertensive emergency. Improved. 4. Chronic kidney disease mineral bone disease maintained on Renvela. 5. Hyperkalemia secondary to chronic kidney disease and hyperglycemia. Entresto also noted on medication list. 6. Type 1 diabetes mellitus. 7. Volume overload. Improved with ultrafiltration. 8. Hypertonic hyponatremia secondary to hyperglycemia. Improved. 9. Metabolic acidosis secondary to hyperglycemia. Improved postdialysis. Plan: hemodialysis today encouraged increased oral intake
--- NOTE | 2024-09-14 12:26 | P.CRDCN ---
History of Present Illness History of present illness: HISTORY OF PRESENT ILLNESS: This is a 34-year-old female with a past medical history significant for congestive heart failure, type 1 diabetes, hypertension, chronic kidney disease on hemodialysis, depression, and anxiety. Patient follows in the office with Dr. Avila and was last seen in the office in September 2023. We have been asked to see the patient in consultation for chest pain. Patient examined at the bedside. Patient states she presented to the hospital with a chief complaint of elevated blood pressure at home. She reports that she had a headache at that time. She also reports feeling slightly dizzy and having some chest discomfort. The patient reports having some chest discomfort overnight and this morning. She states the pain is like a sharp stabbing pain that goes across her chest. The pain is worse with deep inspiration. She currently denies any shortness of breath. She is a current cigarette smoker and smokes about 3 cigarettes/day. DIAGNOSTICS: - EKG reveals sinus mechanism with T wave inversions in lead I and aVL - Laboratory data: WBC 9.81. Hemoglobin 9.8. Platelet count 267. D-dimer 0.42. Sodium 131. Potassium 4.6. BUN 25. Creatinine 6.0. Troponin 0.042. 0.054. - Current home cardiac medications include hydralazine 150 mg 4 times a day, Catapres 0.3 mg 3 times daily, Imdur 30 mg daily, labetalol 200 mg twice a day, amlodipine 10 mg daily, aspirin 81 mg daily, Lipitor 40 mg daily - Most recent echocardiogram obtained in January 2024 revealed ejection fraction of 55 to 60% with small pericardial effusion with no tamponade physiology. -Patient underwent stress echocardiogram in August 2023 which was negative for ischemia REVIEW OF SYSTEMS: At the time of my exam: CONSTITUTIONAL: Denies fever or chills. HEENT: Denies blurred vision, vision changes, or eye pain. Denies hemoptysis CARDIOVASCULAR: Denies chest pain. Denies orthopnea. Denies PND. Denies palpitations RESPIRATORY: Denies shortness of breath. GASTROINTESTINAL: Denies abdominal pain. Denies nausea or vomiting. HEMATOLOGIC: Denies bleeding disorders. GENITOURINARY: Denies any blood in urine. SKIN: Denies pruitis. Denies rash. PHYSICAL EXAM: VITAL SIGNS: Reviewed. GENERAL: Well-developed in no acute distress. HEENT: Head is normocephalic. Pupils are equal, round. Sclerae anicteric. Mucous membranes of the mouth are moist. Neck supple. No JVD or thyromegaly LUNGS: Respirations even and unlabored. Lungs essentially clear to auscultation bilaterally. HEART: Regular rate and rhythm. S1 and S2 heard. ABDOMEN: Soft. Nondistended. Nontender. EXTREMITIES: Normal range of motion. No clubbing or cyanosis. Peripheral pulses intact. No lower extremity edema NEUROLOGIC: Awake and alert. Oriented x 3. ASSESSMENT: Hypertensive emergency, resolved Acute hypoxic respiratory failure requiring BiPAP, resolved Acute on chronic heart failure with preserved EF, currently euvolemic End-stage renal disease on hemodialysis Chest pain, atypical, appears pleuritic in nature Elevated troponins, flat, likely secondary to end-stage renal disease, no eviden ce of acute coronary syndrome Type 1 diabetes History of hypertension History of depression History of anxiety PLAN: Obtain 2D echo to assess cardiac structure and function Obtain additional troponin level Continue home cardiac medications Imdur is currently on hold for unknown reason. Resume Imdur. Hemodialysis per nephrology No plans for stress test or cardiac cath at this time Further recommendations pending patient course Nurse practitioner note has been reviewed by physician. Signing provider agrees with the documented findings, assessment, and plan of care documented by BINGO CASHIER as a scribe. Past Medical History Past Medical History: Diabetes Mellitus, GERD/Reflux, Hypertension, Renal Disease, Seizure Disorder, Thyroid Disorder Additional Past Medical History / Comment(s): Neuropathy, last seizure 2020, gastroparesis, headaches with dialysis, states "fast heart rate" since giving ., receives Hemodialysis Wednesday- and Saturdays at [facility] right chest hemodialysis catheter., severe HTN. patient awaiting Kidney and Pancrease Transplant. , states sometimes she has had stroke -like symptoms but no stroke., hx of c-diff 2013. History of Any Multi-Drug Resistant Organisms: None Reported Date of last positivie culture/infection: None MDRO Source:: None Past Surgical History: Adenoidectomy, Section, Cholecystectomy, Orthopedic Surgery, Tonsillectomy Additional Past Surgical History / Comment(s): 2 KNEE SCOPES, EAR TUBES, additional left knee surgery related to fracture, new port a cath jul 29, eye surgeries for diabetic retinopathy. Past Anesthesia/Blood Transfusion Reactions: Previous Problems w/ Anesthesia Additional Past Anesthesia/Blood Transfusion Reaction / Comment(s): confusion Past Psychological History: Anxiety, Depression Smoking Status: Former smoker Past Alcohol Use History: None Reported Past Drug Use History: Marijuana, Methamphetamine - Past Family History Father History Unknown: Yes Family Medical History: Unable to Obtain Mother History Unknown: Yes Family Medical History: No Reported History Grandfather History Unknown: Yes Family Medical History: Coronary Artery Disease (CAD) Additional Family Medical History / Comment(s): Diabetes mellitus type 2 Medications and Allergies Home Medications Medication Instructions Recorded Confirmed Type Docusate [Colace] 100 mg PO DAILY@0800 02/05/24 09/04/24 History Lidocaine 4% Patch 1 patch TOPICAL DAILY@0800 02/05/24 09/04/24 History Magnesium Hydroxide [Milk of 7,200 mg PO DAILY PRN 02/05/24 09/04/24 History Magnesia Concentrate] Ipratropium-Albuterol Nebulize 3 ml INHALATION RT-TID PRN each 02/14/24 09/04/24 Rx [Duoneb 0.5 mg-3 mg/3 ml Soln] polyethylene glycoL 3350 [Miralax] 17 gm PO AC-LUNCH #527 gm 02/14/24 09/04/24 Rx Acetaminophen [Tylenol] 650 mg PO Q4H PRN 02/18/24 09/04/24 History Biotene Dry Mouth/Throat 10 ml PO BID PRN 02/18/24 09/04/24 History Melatonin 1 mg PO HS tab 02/25/24 09/04/24 Rx Butalb/APAP/Caff 50-325-40Mg 1 tab PO Q4HR PRN 03/14/24 09/04/24 History [Fioricet 50-325-40] Darbepoetin Artur [Aranesp] 40 mcg SQ MO 03/14/24 09/04/24 History Loratadine [Claritin] 5 mg PO DAILY tab 03/30/24 09/04/24 Rx INSULIN ASPART (NovoLOG) [NovoLOG See Protocol SQ ACHS 04/16/24 09/04/24 History (formulary)] Aspirin 81 mg PO DAILY@0800 #30 tab 05/18/24 09/04/24 Rx Famotidine [Pepcid] 20 mg PO BID #60 tab 07/11/24 09/04/24 Rx Insulin Glargine [Lantus Vial] 12 unit SQ BID #1 each 07/11/24 09/04/24 Rx Ondansetron [Zofran] 4 mg PO Q8HR PRN #20 tab 07/11/24 09/04/24 Rx Atorvastatin [Lipitor] 40 mg PO DIRECTED 08/14/24 09/04/24 History Divalproex ER [Depakote ER] 500 mg PO DIRECTED 08/14/24 09/04/24 History Folic Acid-Vit B Complex-Vit C 1 cap PO DIRECTED 08/14/24 09/04/24 History [Nephrocaps] HYDROcodone/APAP 7.5-325MG [Wanda 1 tab PO DIRECTED PRN 08/14/24 09/04/24 History 7.5-325] Levothyroxine Sodium [Synthroid] 175 mcg PO DIRECTED 08/14/24 09/04/24 History Metoclopramide [Reglan] 5 mg PO DIRECTED PRN 08/14/24 09/04/24 History Pantoprazole [Protonix] 40 mg PO DIRECTED 08/14/24 09/04/24 History Sertraline [Zoloft] 200 mg PO DIRECTED 08/14/24 09/04/24 History hydrALAZINE HCL [Apresoline] 150 mg PO QID 08/14/24 09/04/24 History methocarbamoL [Robaxin-750] 750 mg PO DIRECTED 08/14/24 09/04/24 History traZODone HCL [Desyrel] 50 mg PO DIRECTED 08/14/24 09/04/24 History Labetalol [Trandate] 200 mg PO BID 30 Days #60 tab 08/24/24 09/04/24 Rx amLODIPine [Norvasc] 10 mg PO DAILY 30 Days #30 tab 08/24/24 09/04/24 Rx ALPRAZolam [Xanax] 0.25 mg PO BID PRN 09/04/24 09/04/24 History Calcium Acetate [Phoslo] 2,001 mg PO TID-W/MEALS 09/04/24 09/04/24 History Calcium Acetate [Phoslo] 667 mg PO DAILY PRN 09/04/24 09/04/24 History Isosorbide Mononitrate ER [Imdur] 30 mg PO DAILY 09/04/24 09/04/24 History Sacubitril/Valsartan [Entresto 49 1 tab PO BID 09/04/24 09/04/24 History mg-51 mg Tablet] cloNIDine HCL [Catapres] 0.3 mg PO TID 09/04/24 09/04/24 History Allergies Allergy/AdvReac Type Severity Reaction Status Date / Time hydromorphone HCl Allergy Anaphylaxis Verified 09/04/24 08:48 [From Dilaudid] propoxyphene Allergy Rash/Hives Verified 09/04/24 08:48 [From Darvocet-N] tramadol Allergy Anaphylaxis Verified 09/04/24 08:48 ibuprofen [From Motrin] AdvReac unable to Verified 09/04/24 08:48 take due to kidney disease venom-honey bee AdvReac passes out Verified 09/04/24 08:48 [bee venom (honey bee)] Physical Exam Vitals: Vital Signs Temp Pulse Resp BP BP Pulse Ox 09/14/24 08:00 98.9 F 81 18 146/84 100 09/14/24 03:52 81 17 135/78 100 09/14/24 00:15 97.6 F 85 20 173/80 99 09/13/24 19:12 97.3 F L 89 18 119/66 99 09/13/24 17:34 98.2 F 87 18 161/84 97 09/13/24 15:53 119/74 09/13/24 13:20 98.2 F 85 17 110/64 100 Intake and Output 09/13/24 09/14/24 09/14/24 22:59 06:59 14:59 Intake Total 745 1065 Balance 745 1065 Intake: Oral 745 1065 Other: Voiding Method Toilet # Voids 4 2 Weight 60 kg Results 09/13/24 03:35 09/14/24 03:51 Cardiac Enzymes 09/14/24 09/14/24 Range/Units 04:17 09:46 Troponin I 0.042 H* 0.054 H* (0.000-0.034) ng/mL Comprehensive Metabolic Panel 09/14/24 Range/Units 03:51 Sodium 131 L (135-145) mmol/L Potassium 4.6 (3.5-5.5) mmol/L Chloride 91 L (96-109) mmol/L Carbon Dioxide 25.9 (21.6-31.8) mmol/L BUN 25.1 (9.0-27.0) mg/dL Creatinine 6.0 H (0.6-1.5) mg/dL Glucose 104 (70-110) mg/dL Calcium 9.7 (8.7-10.3) mg/dL Current Medications Generic Name Dose Route Start Last Admin Trade Name Freq PRN Reason Stop Dose Admin Acetaminophen 650 mg 09/04/24 05:55 Acetaminophen Tab 325 Mg Tab PO Q4HR PRN Fever and/or Mild Pain Acetaminophen 650 mg 09/04/24 05:55 Acetaminophen Suppository 650 Mg Supp RECTAL Q4HR PRN Fever And/ Or Mild Pain Acetaminophen/Butalbital/Caffeine 1 each 09/04/24 05:58 09/11/24 05:20 Butalb/Apap/Caff 50-325-40mg Tab PO 1 each Q4HR PRN Administration Headache Hydrocodone Bitart/Acetaminophen 1 each 09/04/24 05:58 09/10/24 07:01 Hydrocodone/Apap 7.5-325mg 1 Each Tab PO 1 each Q8H PRN Administration Pain Albuterol/Ipratropium 3 ml 09/04/24 05:58 09/12/24 21:04 Ipratropium-Albuterol 3 Ml Neb INHALATION 3 ml RT-TID PRN Administration Shortness Of Breath Or Wheezing Amlodipine Besylate 10 mg 09/04/24 09:00 09/14/24 09:26 Amlodipine 10 Mg Tab PO 10 mg DAILY VY Administration Aspirin 81 mg 09/04/24 08:00 09/14/24 09:27 Aspirin 81 Mg PO 81 mg DAILY@0800 VY Administration Atorvastatin Calcium 40 mg 09/04/24 21:00 09/13/24 22:19 Atorvastatin 40 Mg Tab PO 40 mg HS VY Administration Clonidine 0.3 mg 09/04/24 09:00 09/14/24 09:27 Clonidine Hcl 0.1 Mg Tab PO 0.3 mg TID VY Administration Dextrose/Water 25 ml 09/05/24 05:30 Dextrose 50% Syringe 50 Ml IVP PER PROTOCOL PRN Hypoglycemia Protocol Dextrose/Water 50 ml 09/05/24 05:30 Dextrose 50% Syringe 50 Ml IVP PER PROTOCOL PRN Hypoglycemia Protocol Divalproex Sodium 500 mg 09/04/24 08:00 09/14/24 09:26 Divalproex Er 500 Mg Tab.Er.24h PO 500 mg BID@0800,1700 VY Administration Famotidine 20 mg 09/08/24 09:00 09/14/24 09:27 Famotidine 20 Mg Tab PO 20 mg DAILY VY Administration Heparin Sodium (Porcine) 5,000 unit 09/04/24 21:00 09/14/24 09:29 Heparin Sodium,Porcine 5,000 Unit/Ml 1 Ml Vial SQ Not Given Q12HR VY Hydralazine HCl 150 mg 09/04/24 09:00 09/14/24 09:26 Hydralazine Hcl 50 Mg Tab PO 150 mg QID VY Administration Sodium Chloride 1,000 mls @ 20 mls/hr 09/04/24 06:00 09/14/24 05:06 Saline 0.9% IV Not Given .Q24H VY Insulin Aspart 0 unit 09/05/24 07:30 09/14/24 06:31 Insulin Aspart (Novolog) 100 Unit/Ml Vial SQ Not Given ACHS [facility] Protocol Insulin Detemir 15 unit 09/14/24 07:00 09/14/24 06:57 Insulin Detemir (Levemir) 100 Unit/Ml Syr SQ Not Given BID@0700,2100 [facility] Isosorbide Mononitrate 30 mg 09/04/24 09:00 Isosorbide Mononitrate Er 30 Mg Tab.Er.24h PO DAILY VY Labetalol HCl 500 mg 09/10/24 09:00 09/14/24 09:27 Labetalol 200 Mg Tab PO 500 mg BID VY Administration Levothyroxine Sodium 176 mcg 09/05/24 06:30 09/14/24 06:58 Levothyroxine 88 Mcg Tab PO 176 mcg 0630 VY Administration Loratadine 5 mg 09/14/24 09:00 09/14/24 09:26 Loratadine 10 Mg Tab PO 5 mg DAILY VY Administration Lorazepam 1 mg 09/04/24 05:55 09/14/24 06:13 Lorazepam 2 Mg/Ml Inj IV 1 mg Q6HR PRN Administration Anxiety Magnesium Hydroxide 7,200 mg 09/04/24 05:58 09/04/24 12:50 Magnesium Hydroxide 2,400 Mg/30 Ml Cup PO 7,200 mg DAILY PRN Administration Constipation Melatonin 1 mg 09/04/24 21:00 09/13/24 22:17 Melatonin 1 Mg Tab PO 1 mg HS VY Administration Metoclopramide HCl 5 mg 09/13/24 20:56 09/13/24 21:03 Metoclopramide 5 Mg/Ml 2 Ml Vial IVP 5 mg Q6HR PRN Administration Nausea And Vomiting Morphine Sulfate 4 mg 09/04/24 05:55 09/14/24 08:39 Morphine Sulfate 4 Mg/Ml Syringe IV 4 mg Q3HR PRN Administration Severe Pain (Scale 7 to 10) Multivit/Ca Carb/B Cmplx/FA/Prenat 1 each 09/04/24 21:00 09/13/24 22:18 Folic Acid-Vit B Complex-Vit C 1 Cap PO 1 each HS VY Administration Naloxone HCl 0.2 mg 09/04/24 05:55 Naloxone 0.4 Mg/Ml 1 Ml Vial IV Q2M PRN Opioid Reversal Nitroglycerin 0.4 mg 09/13/24 17:58 09/14/24 03:41 Nitroglycerin Sl Tabs 0.4 Mg Tab SUBLINGUAL 0.4 mg Q5M PRN Administration Chest Pain Ondansetron HCl 4 mg 09/05/24 16:51 09/14/24 06:35 Ondansetron 4 Mg/2 Ml Vial IVP 4 mg Q6HR PRN Administration Nausea And Vomiting Oxymetazoline HCl 2 spray 09/09/24 14:12 09/10/24 21:21 Oxymetazoline 0.05% Nasl Moosup 1 Moosup Bottle NASAL 2 spray BID PRN Administration Runny Nose Polyethylene Glycol 17 gm 09/04/24 12:30 09/13/24 12:33 Polyethylene Glycol 3350 17 Gm Powd.Pack PO Not Given AC-LUNCH VY Prochlorperazine Maleate 5 mg 09/10/24 12:55 09/12/24 20:32 Prochlorperazine 5 Mg Tab PO 5 mg Q8HR PRN Administration Nausea And Vomiting Sevelamer Carbonate 800 mg 09/08/24 12:30 09/14/24 06:58 Sevelamer 800 Mg Tab PO 800 mg TID-W/MEALS VY Administration Trazodone HCl 50 mg 09/13/24 22:45 09/13/24 23:29 Trazodone Hcl 50 Mg Tab PO 50 mg HS VY Administration Intake and Output 09/13/24 09/14/24 09/14/24 22:59 06:59 14:59 Intake Total 745 1065 Balance 745 1065 Intake: Oral 745 1065 Other: Voiding Method Toilet # Voids 4 2 Weight 60 kg 09/13/24 03:35 09/14/24 03:51
[2024-09-14] MEDS: ISOSORBIDE MONONITRATE ER 30 MG TAB.ER.24H PO SCH (12:33)
--- NOTE | 2024-09-14 14:44 | P.PN ---
Subjective Progress Note Date: 09/14/24 Patient is a 34-year-old female with a past medical history of hypertension, diabetes type 1, ESRD on hemodialysis/4 times a week., Seizure disorder and hypothyroidism and also history of gastroparesis and chronic pain, anxiety/depression. Patient presents to ER with complaints of shortness of breath. Patient states that she had last hemodialysis on Wednesday. She has been doing well until 11 PM and started having shortness of breath and rapidly worsening. EMS was called and patient was transported to ER. Patient was placed on BiPAP and wrote. She was also having chest tightness along with sh ortness of breath. Denied any worsening swelling in the legs. No fever no chills. No nausea vomiting or diarrhea. No headache or dizziness. Chest x-ray showed findings consistent with CHF exacerbation/fluid overload state. EKG showed sinus tachycardia with heart rate 105 Laboratory test showed WBC 9.2 hemoglobin 10.7 and platelets 374 Sodium 134 potassium 6.2 with slight hemolysis Chloride 98 bicarb is 25 BUN 74 and creatinine 7.58 and blood sugar 266. Lactic acid 1.0 AST 147 ALT 196 and alk phos 138, troponin 0.012 and proBNP 58,200. Patient's blood pressure was 171/120 pulse 111 respiration 24 on admission. Patient was started on nitro drip in the ER. 09/05/2024 Patient is in the MICU. Currently requiring 3 L oxygen via nasal cannula. No complaints of chest pain. Complains of shortness of breath. Also complains of nausea. No close of vomiting. Patient is also being continued on Cleviprex drip. Nitroglycerin drip has been discontinued. Patient is currently undergoing hemodialysis and planning for 4Lultrafiltration. Blood pressure is also poorly controlled with SBP in 140s. Laboratory showed WBC 12.4 hemoglobin 10.5 and platelets 341 sodium 129 potassium 5.9 chloride 87 bicarb is 17 BUN 39 creatinine 5.1 blood sugar 611 AST 68 ALT is 139 alk phos 168. Critical care team and nephrology is on board. 09/06/2024 Patient is here in the MICU. Still complains of pain. Shortness of breath is much improved. Blood pressure is also better. Nitroglycerin drip has been discontinued. Patient is currently on room air. Underwent hemodialysis yesterday. Nephrology and critical care team on board. Patient is being transferred to medical floor today. Blood sugar is elevated to 308 this morning. Started on insulin regimen and titrate dose as needed. Other laborat ory data showed A1c 8.3 phosphorus 6.9 sodium 131 and potassium 4.7 and chloride 94. 09/07/2024 Patient is in the medical floor. Resting in the bed. Awake alert and oriented x 3. Patient is getting hemodialysis with 4 L goal of ultrafiltration. Patient is currently room air. No complaints of chest pain or worsening shortness of breath. Patient still complaining of pain and nausea. Improved with medications. Blood pressure is still elevated today afternoon. Nephrology and pulmonary is on board. Laboratory data showed WBC 9 point hemoglobin 9.1 and platelets 308 sodium 126 potassium 4.4 chloride 191 bicarb is 23 BUN 13 and creatinine was 6.19 and blood sugar 228 and phosphorus 7.2. 09/08/2024 Patient is in the medical floor. Awake alert and oriented x 3. Still complains of nausea and generalized pain. Patient is also very oxygen via nasal cannula. Saturating at 90% on room air. Blood pressure is still elevated. Patient is scheduled for hemodialysis tomorrow. Laboratory data showed sodium 134 potassium 4.1 chloride 92 bicarb is 26.8 BUN 17.6 and creatinine 4.6 and blood sugar 142 and calcium 9.2. Patient has been afebrile. No headache or dizziness. No cough or sputum production. Nephrology and pulmonary is on board. 09/12/2021 Patient is lying in the bed. Awake alert and oriented. Complains of pain and shortness of breath. Blood pressure was high this morning with SBP's 170s. Patient is currently undergoing hemodialysis and blood pressure went down to 11 2/. No complaints of dizziness or lightheadedness. Nosebleed has improved. Laboratory data showed sodium 131 potassium 4.9 chloride 89, bicarb is 31 BUN 31 and creatinine 8.37 and blood sugar 85. Calcium 9.2. 09/13/2024 Patient is currently sitting in the bed. Awake alert and oriented. Still complains of pain mainly generalized.. Shortness of breath is slightly better. No fever no chills. Blood sugar is labile. Patient is scheduled for hemodialysis tomorrow.. Systolic blood pressure is better. Patient is also complaining of right hand pain at the base of the thumb with a bump probable fluid collection. Laboratory data reviewed.Sodium 129 potassium 4.4 chloride of 90 bicarb 27.2 BUN 15.7 and creatinine 3.9 blood sugar 276. /31. Patient seen and examined. Patient was having chest pain this morning. Getting dialysis today. Complaining of nausea and vomiting REVIEW OF SYSTEMS: CONSTITUTIONAL: No fever, no malaise,. CARDIOVASCULAR: no palpitations, no syncope. PULMONARY: No shortness of breath, no cough, GASTROINTESTINAL: As mentioned above NEUROLOGICAL: No headaches, no weakness, PHYSICAL EXAMINATION: GENERAL: The patient is alert and oriented x3, not in any acute distress. Ill looking HEENT: Pupils are round and equally reacting to light. EOMI. No scleral icterus. No conjunctival pallor. Normocephalic, atraumatic. No pharyngeal erythema. No thyromegaly. CARDIOVASCULAR: S1 and S2 present. No murmurs, rubs, or gallops. PULMONARY: Chest is clear to auscultation, no wheezing or crackles. ABDOMEN: Soft, nontender, nondistended, normoactive bowel sounds. No palpable organomegaly. MUSCULOSKELETAL: No joint swelling or deformity. EXTREMITIES: No cyanosis, clubbing, or pedal edema. NEUROLOGICAL: Gross neurological examination did not reveal any focal deficits. SKIN: No rashes. Assessment and plan Hypertensive emergency requiring nitroglycerin drip on admission. Currently off drip. Acute hypoxic respiratory failure due to pulmonary edema/volume overload. Requiring BiPAP on admission. Transitioned on to room air. Elevated liver enzymes on admission. ESRD on hemodialysis Wednesday and Wednesday Hyperkalemia secondary to CKD Hypertension uncontrolled Diabetes type 1 History of CVA/TIA History of optic neuritis Hypothyroidism Anxiety/depression Monitor vital signs Monitor CBC Monitor CMP Continue telemetry monitoring Trend troponins Resume Imdur Continue aspirin, Norvasc Continue clonidine Continue Synthroid Monitor blood sugar levels, decrease Levemir 10 units twice a daily Continue dialysis per nephrology Cardiology consulted, ordered resuming Imdur and echo Labs and medication were reviewed.. Continue same treatment. Continue with symptomatic treatment. Resume home medication. Monitor labs and vitals. DVT and GI prophylaxis. Further recommendations as per clinical course of the patient Dictation was produced using [employer] dictation software. please excuse any grammatical, word or spelling errors. Objective - Vital Signs Vital signs: Vital Signs Temp 98.9 F 09/14/24 08:00 Pulse 84 10/31/24 14:00 Resp 16 09/14/24 14:00 BP 158/75 09/14/24 12:00 Pulse Ox 93 L 09/14/24 12:00 FiO2 40 09/04/24 02:07 Intake & Output 09/13/24 09/14/24 09/14/24 18:59 06:59 18:59 Intake Total 1810 115 Balance 1810 115 Weight 60 kg 60 kg Intake: Oral 1810 115 Other: Voiding Method Toilet Toilet Toilet # Voids 4 2 - Labs CBC & Chem 7: 09/13/24 03:35 09/14/24 03:51 Labs: Abnormal Lab Results - Last 24 Hours (Table) 09/13/24 09/13/24 09/13/24 Range/Units 17:20 19:38 19:52 Sodium (135-145) mmol/L Chloride (96-109) mmol/L Anion Gap (4.00-12.00) mmol/L Creatinine (0.6-1.5) mg/dL Est GFR (CKD-EPI) (>=60) BUN/Creatinine Ratio (12.00-20.00) Ratio POC Glucose (mg/dL) 349 H 267 H 236 H (70-110) mg/dL Troponin I (0.000-0.034) ng/mL 09/14/24 09/14/24 09/14/24 Range/Units 03:51 04:17 07:17 Sodium 131 L (135-145) mmol/L Chloride 91 L (96-109) mmol/L Anion Gap 14.10 H (4.00-12.00) mmol/L Creatinine 6.0 H (0.6-1.5) mg/dL Est GFR (CKD-EPI) 9 L (>=60) BUN/Creatinine Ratio 4.18 L (12.00-20.00) Ratio POC Glucose (mg/dL) 67 L (70-110) mg/dL Troponin I 0.042 H* (0.000-0.034) ng/mL 09/14/24 09/14/24 09/14/24 Range/Units 09:46 10:20 11:37 Sodium (135-145) mmol/L Chloride (96-109) mmol/L Anion Gap (4.00-12.00) mmol/L Creatinine (0.6-1.5) mg/dL Est GFR (CKD-EPI) (>=60) BUN/Creatinine Ratio (12.00-20.00) Ratio POC Glucose (mg/dL) 137 H 198 H (70-110) mg/dL Troponin I 0.054 H* (0.000-0.034) ng/mL 09/14/24 Range/Units 12:39 Sodium (135-145) mmol/L Chloride (96-109) mmol/L Anion Gap (4.00-12.00) mmol/L Creatinine (0.6-1.5) mg/dL Est GFR (CKD-EPI) (>=60) BUN/Creatinine Ratio (12.00-20.00) Ratio POC Glucose (mg/dL) (70-110) mg/dL Troponin I 0.036 H* (0.000-0.034) ng/mL
[2024-09-14 16:26] LABS: Glucose,Whole Blood 230 mg/dL (70-110)
[2024-09-14] MEDS: METOCLOPRAMIDE 10 MG TAB PO SCH (17:06)
[2024-09-14] MEDS: INSULIN ASPART (NovoLOG) 100 UNIT/ML VIAL SQ SCH (17:06)
[2024-09-14 20:10] LABS: Glucose,Whole Blood 368 mg/dL (70-110)
[2024-09-14] MEDS: MORPHINE SULFATE 4 MG/ML SYRINGE IV PRN (20:28)
[2024-09-14 23:48] LABS: Glucose,Whole Blood 366 mg/dL (70-110)
[2024-09-15 06:13] LABS: Glucose,Whole Blood 382 mg/dL (70-110)
[2024-09-15 08:07] LABS: Anisocytosis Slight; Basophils # (A) 0.1 k/uL (0-0.2); Basophils % (A) 1 %; Eosinophils # (A) 0.9 k/uL (0-0.7); Eosinophils % (A) 15 %; HCT 33.6 % (34.0-46.0); HGB 10.9 gm/dL (11.4-16.0); Lymphocytes % (A) 16 %; MCH 31.2 pg (25.0-35.0); MCHC 32.4 g/dL (31.0-37.0); Mean Platelet Volume 7.6; Monocytes # (A) 0.7 k/uL (0-1.0); Monocytes % (A) 12 %; Neutrophils # (A) 3.3 k/uL (1.3-7.7); Neutrophils % (A) 54 %; Platelet Count 273 k/uL (150-450); RBC 3.48 m/uL (3.80-5.40); RDW 16.5 % (11.5-15.5); WBC 6.1 k/uL (3.8-10.6)
[2024-09-15 08:11] LABS: MCV 96.4 fL (80.0-100.0)
[2024-09-15 08:19] LABS: ALT 21 U/L (4-34); AST 18 U/L (14-36); African American GFR (CKD) 11 (>60 ml/min/1.73 sqM); Albumin 4.4 g/dL (3.5-5.0); Alkaline Phosphatase 93 U/L (38-126); Anion Gap 11 mmol/L; Blood Urea Nitrogen 20 mg/dL (7-17); Calcium 9.4 mg/dL (8.4-10.2); Carbon Dioxide 28 mmol/L (22-30); Chloride 89 mmol/L (98-107); Glucose 340 mg/dL (74-99); Non-African American GFR(CKD) 10 (>60 ml/min/1.73 sqM); Potassium 3.9 mmol/L (3.5-5.1); Sodium 128 mmol/L (137-145); Total Bilirubin 0.4 mg/dL (0.2-1.3); Total Protein 6.6 g/dL (6.3-8.2)
--- NOTE | 2024-09-15 11:12 | CA ---
Transthoracic Echo Report Name: Marita Perrin Age: 34 Gender: F : 1990 Exam Date: 09/15/2024 08:11 Exam Location: [facility] Ht (in): 68 Wt (lb): 132 Ordering Physician: Madison Hedrick Attending/Referring Phys: [id number], Ryley Mine Foreman Estela Desai RDCS Procedure CPT: Indications: LV function, CP, r/o effusion Cardiac Hx: Technical Quality: Good Contrast 1: Total Dose (mL): Contrast 2: Total Dose (mL): MEASUREMENTS (Male / Female) Normal Values 2D ECHO LV Diastolic Diameter PLAX 4.9 cm 4.2 - 5.9 / 3.9 - 5.3 cm LV Systolic Diameter PLAX 3.7 cm IVS Diastolic Thickness 1.0 cm 0.6 - 1.0 / 0.6 - 0.9 cm LVPW Diastolic Thickness 1.3 cm 0.6 - 1.0 / 0.6 - 0.9 cm LV Relative Wall Thickness 0.5 LVOT Diameter 1.8 cm LV Diastolic Volume MOD BP 136.8 cm??? 67 - 155 / 56 - 104 cm??? LV Systolic Volume MOD BP 54.7 cm??? 22 - 58 / 19 - 49 cm??? LV Ejection Fraction MOD BP 60.0 % >= 55 % LV Cardiac Index MOD BP 3936.2 cm???/min???m??? LV Diastolic Volume MOD 4C 140.9 cm??? LV Systolic Volume MOD 4C 56.9 cm??? LV Ejection Fraction MOD 4C 59.6 % LV Cardiac Index MOD 4C 4029.5 cm???/min???m??? LV Diastolic Length 4C 9.7 cm LV Systolic Length 4C 8.6 cm LV Diastolic Volume MOD 2C 130.2 cm??? LV Systolic Volume MOD 2C 51.3 cm??? LV Ejection Fraction MOD 2C 60.6 % LV Cardiac Index MOD 2C 3780.4 cm???/min???m??? LV Diastolic Length 2C 9.5 cm LV Systolic Length 2C 8.4 cm LA Volume 67.5 cm??? 18 - 58 / 22 - 52 cm??? LA Volume Index 39.9 cm???/m??? 16 - 28 cm???/m??? Ascending Aorta Diameter 3.1 cm DOPPLER AV Peak Velocity 213.0 cm/s AV Peak Gradient 18.1 mmHg AV Mean Velocity 137.0 cm/s AV Mean Gradient 8.4 mmHg AV Velocity Time Integral 34.2 cm LVOT Peak Velocity 172.1 cm/s LVOT Peak Gradient 11.8 mmHg LVOT Velocity Time Integral 30.2 cm LVOT Stroke Volume 76.8 cm??? LVOT Stroke Volume Index 44.8 ml/m??? LVOT Cardiac Index 3683.7 cm???/min???m??? AV Area Cont Eq vti 2.2 cm??? AV Area Cont Eq pk 2.1 cm??? MV Peak Velocity 126.2 cm/s MV Peak Gradient 6.4 mmHg MV Mean Velocity 89.4 cm/s MV Mean Gradient 3.4 mmHg MV Velocity Time Integral 32.0 cm MV Area PHT 3.6 cm??? Mitral E Point Velocity 101.8 cm/s Mitral A Point Velocity 114.1 cm/s Mitral E to A Ratio 0.9 MV Deceleration Time 210.0 ms TR Peak Velocity 197.3 cm/s TR Peak Gradient 15.6 mmHg Right Atrial Pressure 5.0 mmHg Pulmonary Artery Systolic Pressu 20.6 mmHg Right Ventricular Systolic Press 20.6 mmHg PV Peak Velocity 109.9 cm/s PV Peak Gradient 4.8 mmHg FINDINGS Left Ventricle Left ventricular ejection fraction is estimated at 55-60 %. Mildly increased septal wall thickness. Mildly increased posterior wall thickness. Severely increased left ventricular diastolic volume. Mildly increased left ventricular systolic volume. No obvious regional wall motion abnormalities. Abnormal average global longitudinal strain of the left ventricle with a value of -15 %. Right Ventricle Normal right ventricular size and function. Right ventricular systolic pressure within normal limits. Right Atrium Normal right atrial size. Catheter/pacemaker wire in the right atrial cavity. Small calcification on catheter lead. Left Atrium Moderately increased left atrial volume. Mildly increased left atrial area. Mitral Valve Mitral valve thickened. No evidence for mitral valve prolapse. Mild mitral stenosis. Trace mitral regurgitation. Aortic Valve Aortic valve not well visualized. No aortic valve stenosis or regurgitation. Increased velocities through the outflow tract. Tricuspid Valve Structurally normal tricuspid valve. No tricuspid stenosis. Mild tricuspid regurgitation. Pulmonic Valve Structurally normal pulmonic valve. No pulmonic stenosis. Trace pulmonic regurgitation. Pericardium Small pericardial effusion. Aorta Normal size aortic root and proximal ascending aorta. CONCLUSIONS Left ventricular hypertrophy with normal LV systolic function Mild tricuspid regurgitation Small pericardial effusion Previewed by: Dr. Ilan Castillo MD (Electronically Signed) Final Date: 15 September 2024 11:11
[2024-09-15 11:21] LABS: Glucose,Whole Blood 219 mg/dL (70-110)
[2024-09-15] MEDS: COLCHICINE 0.6 MG EACH PO SCH (13:24)
--- NOTE | 2024-09-15 13:24 | P.PN ---
Subjective Progress Note Date: 09/15/24 Patient is a 34-year-old female with a past medical history of hypertension, diabetes type 1, ESRD on hemodialysis/4 times a week., Seizure disorder and hypothyroidism and also history of gastroparesis and chronic pain, anxiety/depression. Patient presents to ER with complaints of shortness of breath. Patient states that she had last hemodialysis on Wednesday. She has been doing well until 11 PM and started having shortness of breath and rapidly worsening. EMS was called and patient was transported to ER. Patient was placed on BiPAP and wrote. She was also having chest tightness along with sh ortness of breath. Denied any worsening swelling in the legs. No fever no chills. No nausea vomiting or diarrhea. No headache or dizziness. Chest x-ray showed findings consistent with CHF exacerbation/fluid overload state. EKG showed sinus tachycardia with heart rate 105 Laboratory test showed WBC 9.2 hemoglobin 10.7 and platelets 374 Sodium 134 potassium 6.2 with slight hemolysis Chloride 98 bicarb is 25 BUN 74 and creatinine 7.58 and blood sugar 266. Lactic acid 1.0 AST 147 ALT 196 and alk phos 138, troponin 0.012 and proBNP 58,200. Patient's blood pressure was 171/120 pulse 111 respiration 24 on admission. Patient was started on nitro drip in the ER. 09/05/2024 Patient is in the MICU. Currently requiring 3 L oxygen via nasal cannula. No complaints of chest pain. Complains of shortness of breath. Also complains of nausea. No close of vomiting. Patient is also being continued on Cleviprex drip. Nitroglycerin drip has been discontinued. Patient is currently undergoing hemodialysis and planning for 4Lultrafiltration. Blood pressure is also poorly controlled with SBP in 140s. Laboratory showed WBC 12.4 hemoglobin 10.5 and platelets 341 sodium 129 potassium 5.9 chloride 87 bicarb is 17 BUN 39 creatinine 5.1 blood sugar 611 AST 68 ALT is 139 alk phos 168. Critical care team and nephrology is on board. 09/06/2024 Patient is here in the MICU. Still complains of pain. Shortness of breath is much improved. Blood pressure is also better. Nitroglycerin drip has been discontinued. Patient is currently on room air. Underwent hemodialysis yesterday. Nephrology and critical care team on board. Patient is being transferred to medical floor today. Blood sugar is elevated to 308 this morning. Started on insulin regimen and titrate dose as needed. Other laborat ory data showed A1c 8.3 phosphorus 6.9 sodium 131 and potassium 4.7 and chloride 94. 09/07/2024 Patient is in the medical floor. Resting in the bed. Awake alert and oriented x 3. Patient is getting hemodialysis with 4 L goal of ultrafiltration. Patient is currently room air. No complaints of chest pain or worsening shortness of breath. Patient still complaining of pain and nausea. Improved with medications. Blood pressure is still elevated today afternoon. Nephrology and pulmonary is on board. Laboratory data showed WBC 9 point hemoglobin 9.1 and platelets 308 sodium 126 potassium 4.4 chloride 191 bicarb is 23 BUN 13 and creatinine was 6.19 and blood sugar 228 and phosphorus 7.2. 09/08/2024 Patient is in the medical floor. Awake alert and oriented x 3. Still complains of nausea and generalized pain. Patient is also very oxygen via nasal cannula. Saturating at 90% on room air. Blood pressure is still elevated. Patient is scheduled for hemodialysis tomorrow. Laboratory data showed sodium 134 potassium 4.1 chloride 92 bicarb is 26.8 BUN 17.6 and creatinine 4.6 and blood sugar 142 and calcium 9.2. Patient has been afebrile. No headache or dizziness. No cough or sputum production. Nephrology and pulmonary is on board. 09/12/2021 Patient is lying in the bed. Awake alert and oriented. Complains of pain and shortness of breath. Blood pressure was high this morning with SBP's 170s. Patient is currently undergoing hemodialysis and blood pressure went down to 11 2/. No complaints of dizziness or lightheadedness. Nosebleed has improved. Laboratory data showed sodium 131 potassium 4.9 chloride 89, bicarb is 31 BUN 31 and creatinine 8.37 and blood sugar 85. Calcium 9.2. 09/13/2024 Patient is currently sitting in the bed. Awake alert and oriented. Still complains of pain mainly generalized.. Shortness of breath is slightly better. No fever no chills. Blood sugar is labile. Patient is scheduled for hemodialysis tomorrow.. Systolic blood pressure is better. Patient is also complaining of right hand pain at the base of the thumb with a bump probable fluid collection. Laboratory data reviewed.Sodium 129 potassium 4.4 chloride of 90 bicarb 27.2 BUN 15.7 and creatinine 3.9 blood sugar 276. /31. Patient seen and examined. Patient was having chest pain this morning. Getting dialysis today. Complaining of nausea and vomiting 09/15. Patient seen and examined. 2D echo done showed left ventricular hypertrophy with normal LV systolic function, echodense lesion at the tip of catheter in the right atrium. Blood cultures ordered. Patient is still complaining of lethargic and weakness. Patient is afebrile. REVIEW OF SYSTEMS: CONSTITUTIONAL: No fever, no malaise,. CARDIOVASCULAR: no palpitations, no syncope. PULMONARY: No shortness of breath, no cough, GASTROINTESTINAL: Still having nausea NEUROLOGICAL: No headaches, no weakness, PHYSICAL EXAMINATION: GENERAL: The patient is alert and oriented x3, not in any acute distress. Ill looking HEENT: Pupils are round and equally reacting to light. EOMI. No scleral icterus. No conjunctival pallor. Normocephalic, atraumatic. No pharyngeal erythema. No thyromegaly. CARDIOVASCULAR: S1 and S2 present. No murmurs, rubs, or gallops. PULMONARY: Chest is clear to auscultation, no wheezing or crackles. ABDOMEN: Soft, nontender, nondistended, normoactive bowel sounds. No palpable organomegaly. MUSCULOSKELETAL: No joint swelling or deformity. EXTREMITIES: No cyanosis, clubbing, or pedal edema. NEUROLOGICAL: Gross neurological examination did not reveal any focal deficits. SKIN: No rashes. Assessment and plan Hypertensive emergency requiring nitroglycerin drip on admission. Currently off drip. Acute hypoxic respiratory failure due to pulmonary edema/volume overload. Requiring BiPAP on admission. Transitioned on to room air. Elevated liver enzymes on admission. ESRD on hemodialysis Wednesday and Wednesday Hyperkalemia secondary to CKD Hypertension uncontrolled Diabetes type 1 History of CVA/TIA History of optic neuritis Hypothyroidism Anxiety/depression Monitor vital signs Monitor CBC Monitor CMP Continue telemetry monitoring Ordered blood cultures Trend troponins Continue Imdur Continue aspirin, Norvasc Continue clonidine Continue Synthroid Monitor blood sugar levels, continue Levemir 10 units twice a daily Continue dialysis per nephrology Cardiology following, recommended ordering blood cultures ID consulted Labs and medication were reviewed.. Continue same treatment. Continue with symptomatic treatment. Resume home medication. Monitor labs and vitals. DVT and GI prophylaxis. Further recommendations as per clinical course of the patient Dictation was produced using [employer] dictation software. please excuse any grammatical, word or spelling errors. Objective - Vital Signs Vital signs: Vital Signs Temp 97.9 F 09/15/24 08:00 Pulse 84 09/15/24 08:00 Resp 16 09/15/24 08:00 BP 132/64 09/15/24 08:00 Pulse Ox 96 09/15/24 08:00 FiO2 40 09/04/24 02:07 Intake & Output 09/14/24 09/15/24 09/15/24 18:59 06:59 18:59 Intake Total 4383 480 Output Total 9800 Balance -5417 480 Weight 60 kg Intake: Oral 583 480 Hemodialysis 3800 Output: Hemodialysis 3800 Hemodialysis Net Amount 6000 Other: Voiding Method Toilet Toilet Toilet # Voids 0 1 # Bowel Movements 0 - Labs CBC & Chem 7: 09/15/24 07:52 09/15/24 07:52 Labs: Abnormal Lab Results - Last 24 Hours (Table) 09/14/24 09/14/24 09/14/24 Range/Units 12:39 16:11 16:25 RBC (3.80-5.40) m/uL Hgb (11.4-16.0) gm/dL Hct (34.0-46.0) % RDW (11.5-15.5) % Eosinophils # (0-0.7) k/uL Sodium (137-145) mmol/L Chloride (98-107) mmol/L BUN (7-17) mg/dL Creatinine (0.52-1.04) mg/dL Glucose (74-99) mg/dL POC Glucose (mg/dL) 230 H (70-110) mg/dL Troponin I 0.036 H* 0.042 H* (0.000-0.034) ng/mL 09/14/24 09/14/24 09/15/24 Range/Units 20:02 23:46 05:55 RBC (3.80-5.40) m/uL Hgb (11.4-16.0) gm/dL Hct (34.0-46.0) % RDW (11.5-15.5) % Eosinophils # (0-0.7) k/uL Sodium (137-145) mmol/L Chloride (98-107) mmol/L BUN (7-17) mg/dL Creatinine (0.52-1.04) mg/dL Glucose (74-99) mg/dL POC Glucose (mg/dL) 368 H 366 H 382 H (70-110) mg/dL Troponin I (0.000-0.034) ng/mL 09/15/24 09/15/24 09/15/24 Range/Units 07:52 07:52 11:19 RBC 3.48 L (3.80-5.40) m/uL Hgb 10.9 L (11.4-16.0) gm/dL Hct 33.6 L (34.0-46.0) % RDW 16.5 H (11.5-15.5) % Eosinophils # 0.9 H (0-0.7) k/uL Sodium 128 L (137-145) mmol/L Chloride 89 L (98-107) mmol/L BUN 20 H (7-17) mg/dL Creatinine 5.48 H (0.52-1.04) mg/dL Glucose 340 H (74-99) mg/dL POC Glucose (mg/dL) 219 H (70-110) mg/dL Troponin I (0.000-0.034) ng/mL
--- NOTE | 2024-09-15 13:41 | P.PN ---
Subjective HISTORY OF PRESENT ILLNESS: This is a 34-year-old female with a past medical history significant for congestive heart failure, type 1 diabetes, hypertension, chronic kidney disease on hemodialysis, depression, and anxiety. Patient follows in the office with Dr. Avila and was last seen in the office in September 2023. We have been asked to see the patient in consultation for chest pain. Patient examined at the bedside. Patient states she presented to the hospital with a chief complaint of elevated blood pressure at home. She reports that she had a headache at that time. She also reports feeling slightly dizzy and having some chest discomfort. The patient reports having some chest discomfort overnight and this morning. She states the pain is like a sharp stabbing pain that goes across her chest. The pain is worse with deep inspiration. She currently denies any shortness of breath. She is a current cigarette smoker and smokes about 3 cigarettes/day. DIAGNOSTICS: - EKG reveals sinus mechanism with T wave inversions in lead I and aVL - Laboratory data: WBC 9.81. Hemoglobin 9.8. Platelet count 267. D-dimer 0.42. Sodium 131. Potassium 4.6. BUN 25. Creatinine 6.0. Troponin 0.042. 0.054. - Current home cardiac medications include hydralazine 150 mg 4 times a day, Catapres 0.3 mg 3 times daily, Imdur 30 mg daily, labetalol 200 mg twice a day, amlodipine 10 mg daily, aspirin 81 mg daily, Lipitor 40 mg daily - Most recent echocardiogram obtained in January 2024 revealed ejection fraction of 55 to 60% with small pericardial effusion with no tamponade physiology. -Patient underwent stress echocardiogram in August 2023 which was negative for ischemia 09/15/2024 Patient examined this morning at the bedside. Patient currently denies any shortness of breath. She continues to report some occasional episodes of chest discomfort that started on the left side of her chest and radiate to the right side. She states it feels like a stabbing pain. The pain is worse with deep inspiration and also with chest wall palpation. Patient also continues to report vomiting although improved from yesterday. Echocardiogram completed revealing ejection fraction 55 to 60%, no obvious regional wall motion abnormalities, abnormal average global longitudinal strain of the left ventricle with a value of -15%, echodense lesion within the right atrium at the tip of the catheter exact significance of which is unclear, mild mitral stenosis, trace mitral regurgitation, mild tricuspid regurgitation, mild pericardial effusion PHYSICAL EXAM: VITAL SIGNS: Reviewed. GENERAL: Well-developed in no acute distress. HEENT: Head is normocephalic. Pupils are equal, round. Sclerae anicteric. Mucous membranes of the mouth are moist. Neck supple. No JVD or thyromegaly LUNGS: Respirations even and unlabored. Lungs essentially clear to auscultation bilaterally. HEART: Regular rate and rhythm. S1 and S2 heard. ABDOMEN: Soft. Nondistended. Nontender. EXTREMITIES: Normal range of motion. No clubbing or cyanosis. Peripheral puls es intact. No lower extremity edema NEUROLOGIC: Awake and alert. Oriented x 3. ASSESSMENT: Hypertensive emergency, resolved Acute hypoxic respiratory failure requiring BiPAP, resolved Acute on chronic heart failure with preserved EF, currently euvolemic End-stage renal disease on hemodialysis Chest pain, atypical, appears pleuritic in nature Elevated troponins, flat, likely secondary to end-stage renal disease, no evidence of acute coronary syndrome Type 1 diabetes History of hypertension History of depression History of anxiety Small pericardial effusion, with possible component of pericarditis Echodense lesion within the right atrium at the tip of catheter, etiology unclear PLAN: Continue current cardiac medications Begin colchicine 0.6 mg twice a day for possible pericarditis Echodense lesion within the right atrium at the tip of the catheter noted on echocardiogram, etiology unclear. Obtain blood cultures. If blood cultures are positive, patient will require HAYDER. Further recommendations pending patient course Nurse practitioner note has been reviewed by physician. Signing provider agrees with the documented findings, assessment, and plan of care documented by ERECTOR OPERATOR as a scribe. Objective - Vital Signs Vital signs: Vital Signs Temp 97.9 F 09/15/24 08:00 Pulse 84 09/15/24 08:00 Resp 16 09/15/24 08:00 BP 132/64 09/15/24 08:00 Pulse Ox 96 09/15/24 08:00 FiO2 40 09/04/24 02:07 Intake & Output 09/14/24 09/15/24 09/15/24 18:59 06:59 18:59 Intake Total 4383 480 Output Total 9800 Balance -5417 480 Weight 60 kg Intake: Oral 583 480 Hemodialysis 3800 Output: Hemodialysis 3800 Hemodialysis Net Amount 6000 Other: Voiding Method Toilet Toilet Toilet # Voids 0 1 # Bowel Movements 0 - Labs CBC & Chem 7: 09/15/24 07:52 09/15/24 07:52 Labs: Abnormal Lab Results - Last 24 Hours (Table) 09/14/24 09/14/24 09/14/24 Range/Units 16:11 16:25 20:02 RBC (3.80-5.40) m/uL Hgb (11.4-16.0) gm/dL Hct (34.0-46.0) % RDW (11.5-15.5) % Eosinophils # (0-0.7) k/uL Sodium (137-145) mmol/L Chloride (98-107) mmol/L BUN (7-17) mg/dL Creatinine (0.52-1.04) mg/dL Glucose (74-99) mg/dL POC Glucose (mg/dL) 230 H 368 H (70-110) mg/dL Troponin I 0.042 H* (0.000-0.034) ng/mL 09/14/24 09/15/24 09/15/24 Range/Units 23:46 05:55 07:52 RBC 3.48 L (3.80-5.40) m/uL Hgb 10.9 L (11.4-16.0) gm/dL Hct 33.6 L (34.0-46.0) % RDW 16.5 H (11.5-15.5) % Eosinophils # 0.9 H (0-0.7) k/uL Sodium (137-145) mmol/L Chloride (98-107) mmol/L BUN (7-17) mg/dL Creatinine (0.52-1.04) mg/dL Glucose (74-99) mg/dL POC Glucose (mg/dL) 366 H 382 H (70-110) mg/dL Troponin I (0.000-0.034) ng/mL 09/15/24 09/15/24 Range/Units 07:52 11:19 RBC (3.80-5.40) m/uL Hgb (11.4-16.0) gm/dL Hct (34.0-46.0) % RDW (11.5-15.5) % Eosinophils # (0-0.7) k/uL Sodium 128 L (137-145) mmol/L Chloride 89 L (98-107) mmol/L BUN 20 H (7-17) mg/dL Creatinine 5.48 H (0.52-1.04) mg/dL Glucose 340 H (74-99) mg/dL POC Glucose (mg/dL) 219 H (70-110) mg/dL Troponin I (0.000-0.034) ng/mL
--- NOTE | 2024-09-15 15:16 | P.PN ---
Subjective patient is seen for follow-up for end-stage renal disease. Shortness of breath has improved. Blood pressure has improved as well. No significant complaints today Objective - Vital Signs Vital signs: Vital Signs Temp 97.9 F 09/15/24 08:00 Pulse 84 09/15/24 08:00 Resp 16 09/15/24 08:00 BP 132/64 09/15/24 08:00 Pulse Ox 96 09/15/24 08:00 FiO2 40 09/04/24 02:07 Intake & Output 09/14/24 09/15/24 09/15/24 18:59 06:59 18:59 Intake Total 4383 742 Output Total 9800 Balance -5417 742 Weight 60 kg Intake: Oral 583 742 Hemodialysis 3800 Output: Hemodialysis 3800 Hemodialysis Net Amount 6000 Other: Voiding Method Toilet Toilet Toilet # Voids 0 1 # Bowel Movements 0 - Exam patient is awake, comfortable, no acute distress. Examination of the heart S1 and S2 Examination of the lungs bilateral breath sounds are heard Abdomen is soft nontender Examination of lower extremities shows no edema - Labs CBC & Chem 7: 09/15/24 07:52 09/15/24 07:52 Labs: Abnormal Lab Results - Last 24 Hours (Table) 09/14/24 09/14/24 09/14/24 Range/Units 16:11 16:25 20:02 RBC (3.80-5.40) m/uL Hgb (11.4-16.0) gm/dL Hct (34.0-46.0) % RDW (11.5-15.5) % Eosinophils # (0-0.7) k/uL Sodium (137-145) mmol/L Chloride (98-107) mmol/L BUN (7-17) mg/dL Creatinine (0.52-1.04) mg/dL Glucose (74-99) mg/dL POC Glucose (mg/dL) 230 H 368 H (70-110) mg/dL Troponin I 0.042 H* (0.000-0.034) ng/mL 09/14/24 09/15/24 09/15/24 Range/Units 23:46 05:55 07:52 RBC 3.48 L (3.80-5.40) m/uL Hgb 10.9 L (11.4-16.0) gm/dL Hct 33.6 L (34.0-46.0) % RDW 16.5 H (11.5-15.5) % Eosinophils # 0.9 H (0-0.7) k/uL Sodium (137-145) mmol/L Chloride (98-107) mmol/L BUN (7-17) mg/dL Creatinine (0.52-1.04) mg/dL Glucose (74-99) mg/dL POC Glucose (mg/dL) 366 H 382 H (70-110) mg/dL Troponin I (0.000-0.034) ng/mL 09/15/24 09/15/24 Range/Units 07:52 11:19 RBC (3.80-5.40) m/uL Hgb (11.4-16.0) gm/dL Hct (34.0-46.0) % RDW (11.5-15.5) % Eosinophils # (0-0.7) k/uL Sodium 128 L (137-145) mmol/L Chloride 89 L (98-107) mmol/L BUN 20 H (7-17) mg/dL Creatinine 5.48 H (0.52-1.04) mg/dL Glucose 340 H (74-99) mg/dL POC Glucose (mg/dL) 219 H (70-110) mg/dL Troponin I (0.000-0.034) ng/mL Assessment and Plan Assessment: 1. End-stage renal disease maintained on hemodialysis on Wednesday. 2. Acute hypoxic respiratory failure, improved 3. Hypertensive emergency. Improved. 4. Chronic kidney disease mineral bone disease maintained on Renvela. 5. Hyperkalemia secondary to chronic kidney disease and hyperglycemia. Entresto also noted on medication list. 6. Type 1 diabetes mellitus. 7. Volume overload. Improved with ultrafiltration. 8. Hypertonic hyponatremia secondary to hyperglycemia. Improved. 9. Metabolic acidosis secondary to hyperglycemia. Improved postdialysis. Plan: hemodialysis in a.m. encouraged increased oral intake
[2024-09-15 16:08] LABS: Glucose,Whole Blood 310 mg/dL (70-110)
[2024-09-15 21:00] LABS: Glucose,Whole Blood 463 mg/dL (70-110)
[2024-09-16 06:12] LABS: Glucose,Whole Blood 207 mg/dL (70-110)
--- NOTE | 2024-09-16 07:06 | P.PN ---
Subjective Progress Note Date: 09/16/24 This is a very pleasant 34-year-old female patient with a past medical history significant for end-stage renal disease on dialysis through hemodialysis catheter as well as hypertension and dyslipidemia and diabetes and multiple comorbid conditions who was admitted to the hospital with attention emergency which has improved significantly. We consulted to see the patient because of chest discomfort which we felt is pleuritic and noncardiac. The chest discomfort is mostly when she take a deep breath. D-dimer came in to be unremarkable with the echo showed preserved LV systolic function with a small pericardial effusion and also showed an echodensity attached to the hemodialysis catheter in the right atrium. Infectious disease specialist was consulted to see the patient. Troponin came to be mildly elevated but flat across the board and the EKG did not show any ischemic ST or T wave abnormalities and the chest discomfort is clearly not anginal/noncardiac. September 16, 2024 The patient was seen and evaluated this morning which she is overall stable with improvement in the blood pressure which she continues to have intermittent episodes of chest discomfort with the same nature as described above. She is euvolemic on examination. Infectious disease specialist consulted to see the patient. Blood culture was drawn. We added colchicine to the current medical regimen for presumably pericarditis component. The examination is remarkable for regular rhythm with a soft systolic murmur and clear breathing sounds bilaterally and no edema was noted in the lower extremities Assessment Hypertension emergency which has improved Evidence of myocardial injury with no evidence of ischemia Small pericardial effusion End-stage renal disease on dialysis Possible infected hemodialysis catheter Multiple comorbid conditions Plan Continue the current medical regimen Further recommendation to follow the infectious diseases service Follow-up with the patient Objective - Vital Signs Vital signs: Vital Signs Temp 98.2 F 09/16/24 04:00 Pulse 86 09/16/24 04:00 Resp 20 09/16/24 04:00 BP 156/85 09/16/24 04:00 Pulse Ox 98 09/16/24 04:00 FiO2 40 09/04/24 02:07 Intake & Output 09/15/24 09/16/24 09/16/24 18:59 06:59 18:59 Intake Total 860 600 Balance 860 600 Weight 63.1 kg Intake: Oral 860 600 Other: Voiding Method Toilet Toilet # Voids 1 1 - Labs CBC & Chem 7: 09/15/24 07:52 09/15/24 07:52 Labs: Abnormal Lab Results - Last 24 Hours (Table) 09/15/24 09/15/24 09/15/24 Range/Units 07:52 07:52 11:19 RBC 3.48 L (3.80-5.40) m/uL Hgb 10.9 L (11.4-16.0) gm/dL Hct 33.6 L (34.0-46.0) % RDW 16.5 H (11.5-15.5) % Eosinophils # 0.9 H (0-0.7) k/uL Sodium 128 L (137-145) mmol/L Chloride 89 L (98-107) mmol/L BUN 20 H (7-17) mg/dL Creatinine 5.48 H (0.52-1.04) mg/dL Glucose 340 H (74-99) mg/dL POC Glucose (mg/dL) 219 H (70-110) mg/dL 09/15/24 09/15/24 09/16/24 Range/Units 16:06 20:41 05:51 RBC (3.80-5.40) m/uL Hgb (11.4-16.0) gm/dL Hct (34.0-46.0) % RDW (11.5-15.5) % Eosinophils # (0-0.7) k/uL Sodium (137-145) mmol/L Chloride (98-107) mmol/L BUN (7-17) mg/dL Creatinine (0.52-1.04) mg/dL Glucose (74-99) mg/dL POC Glucose (mg/dL) 310 H 463 H 207 H (70-110) mg/dL
--- NOTE | 2024-09-16 09:18 | P.CONS ---
History of Present Illness - Reason for Consult Consult date: 09/15/24 2D echo showing vegetation Requesting physician: Getachew Dacosta - Chief Complaint Nausea and vomiting x few days - History of Present Illness Patient is a 34-year-old female with a past medical history difficult for diabetes mellitus reflux hypertension seizure disorder history of end-stage renal disease on dialysis through the right subclavian permacatheter that has been placed about a year ago patient has been in the hospital for more than 10 days with initial presentation to the hospital concerning for increasing shortness of breath patient did have a echocardiogram completed this morning which did show left ventricular hypertrophy with normal LV systolic function there was echodense lesion at the tip of the catheter in the right atrium concerning for vegetation that has prompted this consultation patient has been afebrile during this hospital stay and did have normal white count throughout her hospital stay except white count of 12.4 on 09/05/2024 patient did mention having issues with the catheter and was consulted for possible clotting however she was unable to give complete information has been complaining of pain to the right chest wall that seem to be radiating to the left side describing it to be sharp about 7-1/2 to 10 out of 10 in severity however currently do not have any redness or any drainage from the dialysis catheter Review of Systems Positive point and negatives has been mentioned in the HPI, complete review of systems was performed and all other systems are negative Past Medical History Past Medical History: Diabetes Mellitus, GERD/Reflux, Hypertension, Renal Disease, Seizure Disorder, Thyroid Disorder Additional Past Medical History / Comment(s): Neuropathy, last seizure 2020, gastroparesis, headaches with dialysis, states "fast heart rate" since giving ., receives Hemodialysis Wednesday- and Saturdays at [facility] right chest hemodialysis catheter., severe HTN. patient awaiting Kidney and Pancrease Transplant. , states sometimes she has had stroke -like symptoms but no stroke., hx of c-diff 2013. History of Any Multi-Drug Resistant Organisms: None Reported Year Discovered:: None MDRO Source:: None Past Surgical History: Adenoidectomy, Section, Cholecystectomy, Orthopedic Surgery, Tonsillectomy Additional Past Surgical History / Comment(s): 2 KNEE SCOPES, EAR TUBES, additional left knee surgery related to fracture, new port a cath jul 29, ey e surgeries for diabetic retinopathy. Past Anesthesia/Blood Transfusion Reactions: Previous Problems w/ Anesthesia Additional Past Anesthesia/Blood Transfusion Reaction / Comm: confusion Past Psychological History: Anxiety, Depression Smoking Status: Former smoker Past Alcohol Use History: None Reported Past Drug Use History: Marijuana, Methamphetamine - Past Family History Father History Unknown: Yes Family Medical History: Unable to Obtain Mother History Unknown: Yes Family Medical History: No Reported History Grandfather History Unknown: Yes Family Medical History: Coronary Artery Disease (CAD) Additional Family Medical History / Comment(s): Diabetes mellitus type 2 Medications and Allergies Home Medications Medication Instructions Recorded Confirmed Type Docusate [Colace] 100 mg PO DAILY@0800 02/05/24 09/04/24 History Lidocaine 4% Patch 1 patch TOPICAL DAILY@0800 02/05/24 09/04/24 History Magnesium Hydroxide [Milk of 7,200 mg PO DAILY PRN 02/05/24 09/04/24 History Magnesia Concentrate] Ipratropium-Albuterol Nebulize 3 ml INHALATION RT-TID PRN each 02/14/24 09/04/24 Rx [Duoneb 0.5 mg-3 mg/3 ml Soln] polyethylene glycoL 3350 [Miralax] 17 gm PO AC-LUNCH #527 gm 02/14/24 09/04/24 Rx Acetaminophen [Tylenol] 650 mg PO Q4H PRN 02/18/24 09/04/24 History Biotene Dry Mouth/Throat 10 ml PO BID PRN 02/18/24 09/04/24 History Melatonin 1 mg PO HS tab 02/25/24 09/04/24 Rx Butalb/APAP/Caff 50-325-40Mg 1 tab PO Q4HR PRN 03/14/24 09/04/24 History [Fioricet 50-325-40] Darbepoetin Artur [Aranesp] 40 mcg SQ MO 03/14/24 09/04/24 History Loratadine [Claritin] 5 mg PO DAILY tab 03/30/24 09/04/24 Rx INSULIN ASPART (NovoLOG) [NovoLOG See Protocol SQ ACHS 04/16/24 09/04/24 History (formulary)] Aspirin 81 mg PO DAILY@0800 #30 tab 05/18/24 09/04/24 Rx Famotidine [Pepcid] 20 mg PO BID #60 tab 07/11/24 09/04/24 Rx Insulin Glargine [Lantus Vial] 12 unit SQ BID #1 each 07/11/24 09/04/24 Rx Ondansetron [Zofran] 4 mg PO Q8HR PRN #20 tab 07/11/24 09/04/24 Rx Atorvastatin [Lipitor] 40 mg PO DIRECTED 08/14/24 09/04/24 History Divalproex ER [Depakote ER] 500 mg PO DIRECTED 08/14/24 09/04/24 History Folic Acid-Vit B Complex-Vit C 1 cap PO DIRECTED 08/14/24 09/04/24 History [Nephrocaps] HYDROcodone/APAP 7.5-325MG [[place] 1 tab PO DIRECTED PRN 08/14/24 09/04/24 History 7.5-325] Levothyroxine Sodium [Synthroid] 175 mcg PO DIRECTED 08/14/24 09/04/24 History Metoclopramide [Reglan] 5 mg PO DIRECTED PRN 08/14/24 09/04/24 History Pantoprazole [Protonix] 40 mg PO DIRECTED 08/14/24 09/04/24 History Sertraline [Zoloft] 200 mg PO DIRECTED 08/14/24 09/04/24 History hydrALAZINE HCL [Apresoline] 150 mg PO QID 08/14/24 09/04/24 History methocarbamoL [Robaxin-750] 750 mg PO DIRECTED 08/14/24 09/04/24 History traZODone HCL [Desyrel] 50 mg PO DIRECTED 08/14/24 09/04/24 History Labetalol [Trandate] 200 mg PO BID 30 Days #60 tab 08/24/24 09/04/24 Rx amLODIPine [Norvasc] 10 mg PO DAILY 30 Days #30 tab 08/24/24 09/04/24 Rx ALPRAZolam [Xanax] 0.25 mg PO BID PRN 09/04/24 09/04/24 History Calcium Acetate [Phoslo] 2,001 mg PO TID-W/MEALS 09/04/24 09/04/24 History Calcium Acetate [Phoslo] 667 mg PO DAILY PRN 09/04/24 09/04/24 History Isosorbide Mononitrate ER [Imdur] 30 mg PO DAILY 09/04/24 09/04/24 History Sacubitril/Valsartan [Entresto 49 1 tab PO BID 09/04/24 09/04/24 History mg-51 mg Tablet] cloNIDine HCL [Catapres] 0.3 mg PO TID 09/04/24 09/04/24 History Allergies Allergy/AdvReac Type Severity Reaction Status Date / Time hydromorphone HCl Allergy Anaphylaxis Verified 09/04/24 08:48 [From Dilaudid] propoxyphene Allergy Rash/Hives Verified 09/04/24 08:48 [From Darvocet-N] tramadol Allergy Anaphylaxis Verified 09/04/24 08:48 ibuprofen [From Motrin] AdvReac unable to Verified 09/04/24 08:48 take due to kidney disease venom-honey bee AdvReac passes out Verified 09/04/24 08:48 [bee venom (honey bee)] Physical Exam Vitals: Vital Signs Temp Pulse Pulse Resp BP Pulse Ox 09/15/24 08:00 97.9 F 84 81 16 132/64 96 09/15/24 03:35 97.7 F 85 18 121/76 98 09/15/24 01:28 16 09/14/24 23:52 97.9 F 87 18 100/62 98 09/14/24 20:07 98.9 F 97 18 119/60 98 09/14/24 20:00 16 09/14/24 17:48 98.2 F 90 18 119/74 09/14/24 15:47 98.0 F 81 16 121/76 95 Intake and Output 09/14/24 09/15/24 09/15/24 22:59 06:59 14:59 Intake Total 750 742 Output Total 6400 Balance -5650 742 Intake: Oral 350 742 Hemodialysis 400 Output: Hemodialysis 3400 Hemodialysis Net Amount 3000 Other: Voiding Method Toilet Toilet Toilet # Voids 1 1 GENERAL DESCRIPTION: Middle-aged female lying in bed, no distress. No tachypnea or accessory muscle of respiration use. HEENT: Shows Pallor , no scleral icterus. Oral mucous membrane is dry. NECK: Trachea central, no thyromegaly. LUNGS: Unlabored breathing. Clear to auscultation anteriorly. No wheeze or crackle. HEART: S1, S2, regular rate and rhythm. No loud murmur ABDOMEN: Soft, no tenderness , guarding or rigidity, no organomegaly EXTREMITIES: No edema of feet. SKIN: No rash, no masses palpable. NEUROLOGICAL: The patient is awake, alert, oriented x3, mood and affect normal. Results CBC & Chem 7: 09/15/24 07:52 09/15/24 07:52 Labs: Abnormal Lab Results - Last 24 Hours (Table) 09/14/24 09/14/24 09/14/24 Range/Units 16:11 16:25 20:02 RBC (3.80-5.40) m/uL Hgb (11.4-16.0) gm/dL Hct (34.0-46.0) % RDW (11.5-15.5) % Eosinophils # (0-0.7) k/uL Sodium (137-145) mmol/L Chloride (98-107) mmol/L BUN (7-17) mg/dL Creatinine (0.52-1.04) mg/dL Glucose (74-99) mg/dL POC Glucose (mg/dL) 230 H 368 H (70-110) mg/dL Troponin I 0.042 H* (0.000-0.034) ng/mL 09/14/24 09/15/24 09/15/24 Range/Units 23:46 05:55 07:52 RBC 3.48 L (3.80-5.40) m/uL Hgb 10.9 L (11.4-16.0) gm/dL Hct 33.6 L (34.0-46.0) % RDW 16.5 H (11.5-15.5) % Eosinophils # 0.9 H (0-0.7) k/uL Sodium (137-145) mmol/L Chloride (98-107) mmol/L BUN (7-17) mg/dL Creatinine (0.52-1.04) mg/dL Glucose (74-99) mg/dL POC Glucose (mg/dL) 366 H 382 H (70-110) mg/dL Troponin I (0.000-0.034) ng/mL 09/15/24 09/15/24 Range/Units 07:52 11:19 RBC (3.80-5.40) m/uL Hgb (11.4-16.0) gm/dL Hct (34.0-46.0) % RDW (11.5-15.5) % Eosinophils # (0-0.7) k/uL Sodium 128 L (137-145) mmol/L Chloride 89 L (98-107) mmol/L BUN 20 H (7-17) mg/dL Creatinine 5.48 H (0.52-1.04) mg/dL Glucose 340 H (74-99) mg/dL POC Glucose (mg/dL) 219 H (70-110) mg/dL Troponin I (0.000-0.034) ng/mL Assessment and Plan Plan: 1patient with abnormal echo with evidence of hypodense lesion at the tip of the dialysis catheter in the right atrium questionably hematoma as the patient do report issues with the dialysis and clotting clinically not behaving as infection/infected vegetation as the patient did not have any fever or any elevated white count in this hospital stay but not entirely excluded 2-blood culture has been obtained we will also obtain blood cultures from the dialysis catheter at the time of dialysis tomorrow 3-check inflammatory markers 4-May benefit from HAYDER for better definition of that abnormality 5as patient had does not look toxic clinic suspicious low for infection we will hold on adding any empiric systemic antibiotic therapy at this point We will follow on clinical condition and cultures to further adjust medication if needed Thank you for this consultation we will follow the patient along with you Dictation was produced using [employer] dictation software. please excuse any grammatical, word or spelling errors. Time with Patient: Greater than 30
[2024-09-16 11:27] LABS: Glucose,Whole Blood 136 mg/dL (70-110)
--- NOTE | 2024-09-16 12:03 | P.PN ---
Subjective Progress Note Date: 09/16/24 Patient is seen for follow-up for end-stage renal disease. Shortness of breath has improved. patient is awake, comfortable, no acute distress. Examination of the heart S1 and S2 Examination of the lungs bilateral breath sounds are heard Abdomen is soft nontender Examination of lower extremities shows no edema Objective - Vital Signs Vital signs: Vital Signs Temp 98.2 F 09/16/24 04:00 Pulse 86 09/16/24 04:00 Resp 20 09/16/24 04:00 BP 156/85 09/16/24 04:00 Pulse Ox 98 09/16/24 04:00 FiO2 40 09/04/24 02:07 Intake & Output 09/15/24 09/16/24 09/16/24 18:59 06:59 18:59 Intake Total 860 600 480 Balance 860 600 480 Weight 63.1 kg Intake: Oral 860 600 480 Other: Voiding Method Toilet Toilet # Voids 1 1 - Labs CBC & Chem 7: 09/15/24 07:52 09/15/24 07:52 Labs: Abnormal Lab Results - Last 24 Hours (Table) 09/15/24 09/15/24 09/15/24 Range/Units 11:19 16:06 20:41 POC Glucose (mg/dL) 219 H 310 H 463 H (70-110) mg/dL 09/16/24 Range/Units 05:51 POC Glucose (mg/dL) 207 H (70-110) mg/dL Assessment and Plan Assessment: 1. End-stage renal disease maintained on hemodialysis on Wednesday. 2. Acute hypoxic respiratory failure, improved 3. Hypertensive emergency. Improved. 4. Chronic kidney disease mineral bone disease maintained on Renvela. 5. Hyperkalemia secondary to chronic kidney disease and hyperglycemia. Entresto also noted on medication list. 6. Type 1 diabetes mellitus. 7. Volume overload. Improved with ultrafiltration. 8. Hypertonic hyponatremia secondary to hyperglycemia. Improved. 9. Metabolic acidosis secondary to hyperglycemia. Improved postdialysis. Plan: Hemodialysis today encouraged increased oral intake
--- NOTE | 2024-09-16 14:32 | P.PN ---
Subjective Progress Note Date: 09/16/24 Principal diagnosis: Reason for follow-up is abnormal echo with echodense mass to the catheter tip Patient is a 34-year-old female with a past medical history difficult for diabetes mellitus reflux hypertension seizure disorder history of end-stage renal disease on dialysis through the right subclavian permacatheter with an echocardiogram showing echodense mass to the tip of the dialysis catheter and a question of infection. On today's evaluation that is 09/16/2024, Patient is afebrile patient is currently on room air and denies having any shortness of breath, the patient denies any chest pain or cough, the patient denies any nausea vomiting did not have any abdominal pain and no diarrhea still complaining of some pain to the right chest area undergoing dialysis without any problem. No new lab has been obtained today CRP done yesterday was 0.30 procalcitonin 0.38 Objective - Vital Signs Vital signs: Vital Signs Temp 98 F 09/16/24 11:50 Pulse 81 09/16/24 11:50 Resp 14 09/16/24 11:50 BP 164/95 09/16/24 11:50 Pulse Ox 99 09/16/24 11:50 FiO2 40 09/04/24 02:07 Intake & Output 09/15/24 09/16/24 09/16/24 18:59 06:59 18:59 Intake Total 860 600 480 Balance 860 600 480 Weight 63.1 kg Intake: Oral 860 600 480 Other: Voiding Method Toilet Toilet Toilet # Voids 1 1 - Exam GENERAL DESCRIPTION: Middle-age female lying in bed in no distress RESPIRATORY SYSTEM: Unlabored breathing , decreased breath sounds at bases HEART: S1 S2 regular rate and rhythm , ABDOMEN: Soft , no tenderness EXTREMITIES: No edema feet - Labs CBC & Chem 7: 09/15/24 07:52 09/15/24 07:52 Labs: Abnormal Lab Results - Last 24 Hours (Table) 09/15/24 09/15/24 09/16/24 Range/Units 16:06 20:41 05:51 POC Glucose (mg/dL) 310 H 463 H 207 H (70-110) mg/dL 09/16/24 Range/Units 11:26 POC Glucose (mg/dL) 136 H (70-110) mg/dL Assessment and Plan (1) Abnormal echocardiogram Current Visit: Yes Status: Acute Code(s): R93.1 - ABNORMAL FINDINGS ON DX IMAGING OF HEART AND COR CIRC SNOMED Code(s): 439259373 Plan: 1patient with abnormal echo with evidence of hypodense lesion at the tip of the dialysis catheter in the right atrium questionably hematoma as the patient do report issues with the dialysis and clotting clinically not behaving as infection/infected vegetation as the patient did not have any fever or any elevated white count in this hospital stay but not entirely excluded 2-blood culture has been obtained peripherally also from the dialysis catheter this morning 3-patient did have a normal CRP there will make infectious etiology to be less likely hence we will monitor closely off antibiotic therapy while waiting for the culture to finalize Dictation was produced using [employer] dictation software. please excuse any grammatical, word or spelling errors. Time with Patient: Less than 30
[2024-09-16 16:35] LABS: Glucose,Whole Blood 580 mg/dL (70-110)
[2024-09-16 17:25] LABS: Glucose,Whole Blood 552 mg/dL (70-110); Glucose,Whole Blood 576 mg/dL (70-110)
[2024-09-16 18:15] LABS: Glucose,Whole Blood 508 mg/dL (70-110)
--- NOTE | 2024-09-16 18:34 | XR ---
EXAMINATION TYPE: XR wrist complete RT DATE OF EXAM: 09/16/2024 6:08 PM COMPARISON: 09/09/2024. CLINICAL INDICATION: Female, 34 years old with history of Sudden pain; [facility] TECHNIQUE: XR wrist complete RT; examined in the Frontal, navicular, lateral, and oblique. FINDINGS: No acute osseous pathology, joint dislocation, or joint effusion. No evidence of any soft tissue swelling is seen. IMPRESSION: No acute osseous pathology. [facility], , 09/16/2024 6:32 PM
[2024-09-16] MEDS: INSULIN ASPART (NovoLOG) 100 UNIT/ML VIAL SQ ONE (18:46)
[2024-09-16 20:17] LABS: Glucose,Whole Blood 415 mg/dL (70-110)
[2024-09-17 01:52] LABS: Glucose,Whole Blood 101 mg/dL (70-110)
[2024-09-17 05:56] LABS: Glucose,Whole Blood 139 mg/dL (70-110)
--- NOTE | 2024-09-17 07:04 | P.PN ---
Subjective Progress Note Date: 09/17/24 This is a very pleasant 34-year-old female patient with a past medical history significant for end-stage renal disease on dialysis through hemodialysis catheter as well as hypertension and dyslipidemia and diabetes and multiple comorbid conditions who was admitted to the hospital with attention emergency which has improved significantly. We consulted to see the patient because of chest discomfort which we felt is pleuritic and noncardiac. The chest discomfort is mostly when she take a deep breath. D-dimer came in to be unremarkable with the echo showed preserved LV systolic function with a small pericardial effusion and also showed an echodensity attached to the hemodialysis catheter in the right atrium. Infectious disease specialist was consulted to see the patient. Troponin came to be mildly elevated but flat across the board and the EKG did not show any ischemic ST or T wave abnormalities and the chest discomfort is clearly not anginal/noncardiac. September 16, 2024 The patient was seen and evaluated this morning which she is overall stable with improvement in the blood pressure which she continues to have intermittent episodes of chest discomfort with the same nature as described above. She is euvolemic on examination. Infectious disease specialist consulted to see the patient. Blood culture was drawn. We added colchicine to the current medical regimen for presumably pericarditis component. The examination is remarkable for regular rhythm with a soft systolic murmur and clear breathing sounds bilaterally and no edema was noted in the lower extremities September 17, 2024 The patient was seen and evaluated this morning which she is feeling overall better. The chest discomfort is better. The pressure still elevated and consistent with stage II hypertension. I am going to increase the dose of isosorbide mononitrate and beside that she is on maximum dose of dihydropyridine calcium channel stephanie and maximum dose of beta-stephanie and also she is on high-dose clonidine and also she is on high-dose of hydralazine. Blood culture was sent and still pending as of now. Infectious disease on the case. If there is no concern regarding any infection and the patient continues to have chest discomfort I believe she need to undergo a heart catheterization. Examination is remarkable for regular rhythm with a soft systolic murmur and clear breathing sounds bilaterally and no edema was noted in the lower extremities Assessment Hypertension emergency which has improved Evidence of myocardial injury with no evidence of ischemia Small pericardial effusion End-stage renal disease on dialysis Possible infected hemodialysis catheter Multiple comorbid conditions Plan Continue the current medical regimen Increase the dose of isosorbide mononitrate Follow-up regarding ruling out infection at the tip of the dialysis catheter If she remains symptomatic in terms of chest discomfort and infection has been ruled out the patient need to undergo a heart catheterization Objective - Vital Signs Vital signs: Vital Signs Temp 98.0 F 09/17/24 04:00 Pulse 77 09/17/24 04:00 Resp 15 09/17/24 04:00 BP 162/80 09/17/24 04:00 Pulse Ox 99 09/17/24 04:00 FiO2 40 09/04/24 02:07 Intake & Output 09/16/24 09/17/24 09/17/24 19:59 06:59 18:59 Intake Total Output Total Balance Weight Intake: IV Sodium Chloride 0.9% 1, 000 ml @ 20 mls/hr IV . Q[facility]H [facility] Rx#:[id number] Oral Hemodialysis Output: Urine Hemodialysis Hemodialysis Net Amount Other: Voiding Method # Voids # Bowel Movements - Labs CBC & Chem 7: 09/15/24 07:52 09/15/24 07:52 Labs: Abnormal Lab Results - Last 24 Hours (Table) 09/16/24 09/16/24 09/16/24 Range/Units 11:26 16:28 17:23 POC Glucose (mg/dL) 136 H 580 H* 576 H* (70-110) mg/dL 09/16/24 09/16/24 09/16/24 Range/Units 17:23 18:14 20:15 POC Glucose (mg/dL) 552 H* 508 H* 415 H (70-110) mg/dL 09/17/24 Range/Units 05:55 POC Glucose (mg/dL) 139 H (70-110) mg/dL Microbiology - Last 24 Hours (Table) 09/15/24 12:53 Blood Culture Gram Stain - Preliminary Blood Blood Culture - Preliminary
[2024-09-17] MEDS: ISOSORBIDE MONONITRATE ER 60 MG TAB.ER.24H PO SCH (08:00)
--- NOTE | 2024-09-17 10:59 | P.PN ---
Subjective Progress Note Date: 09/17/24 Patient is seen for follow-up for end-stage renal disease. Shortness of breath has improved. patient is awake, comfortable, no acute distress. Examination of the heart S1 and S2 Examination of the lungs bilateral breath sounds are heard Abdomen is soft nontender Examination of lower extremities shows no edema Objective - Vital Signs Vital signs: Vital Signs Temp 98.2 F 09/17/24 07:54 Pulse 87 09/17/24 07:54 Resp 14 09/17/24 07:54 BP 201/107 09/17/24 07:54 Pulse Ox 100 09/17/24 08:01 FiO2 40 09/04/24 02:07 Intake & Output 09/16/24 09/17/24 09/17/24 19:59 06:59 18:59 Intake Total 480 Output Total Balance 480 Weight Intake: IV Sodium Chloride 0.9% 1, 000 ml @ 20 mls/hr IV . Q24H [facility] Rx#:[id number] Oral 480 Hemodialysis Output: Urine Hemodialysis Hemodialysis Net Amount Other: Voiding Method # Voids # Bowel Movements - Labs CBC & Chem 7: 09/15/24 07:52 09/15/24 07:52 Labs: Abnormal Lab Results - Last 24 Hours (Table) 09/16/24 09/16/24 09/16/24 Range/Units 11:26 16:28 17:23 POC Glucose (mg/dL) 136 H 580 H* 576 H* (70-110) mg/dL 09/16/24 09/16/24 09/16/24 Range/Units 17:23 18:14 20:15 POC Glucose (mg/dL) 552 H* 508 H* 415 H (70-110) mg/dL 09/17/24 Range/Units 05:55 POC Glucose (mg/dL) 139 H (70-110) mg/dL Microbiology - Last 24 Hours (Table) 09/15/24 12:53 Blood Culture Gram Stain - Preliminary Blood Blood Culture - Preliminary Assessment and Plan Assessment: 1. End-stage renal disease maintained on hemodialysis on Wednesday. 2. Acute hypoxic respiratory failure, improved 3. Hypertensive emergency. Improved. 4. Chronic kidney disease mineral bone disease maintained on Renvela. 5. Hyperkalemia secondary to chronic kidney disease and hyperglycemia. Entresto also noted on medication list. 6. Type 1 diabetes mellitus. 7. Volume overload. Improved with ultrafiltration. 8. Hypertonic hyponatremia secondary to hyperglycemia. Improved. 9. Metabolic acidosis secondary to hyperglycemia. Improved postdialysis. Plan: Hemodialysis planned tomorrow. Encouraged increased oral intake Blood cultures pending to rule out possible endocarditis
[2024-09-17 11:26] LABS: Glucose,Whole Blood 185 mg/dL (70-110)
--- NOTE | 2024-09-17 13:29 | P.PN ---
Subjective Progress Note Date: 09/17/24 Principal diagnosis: Reason for follow-up is abnormal echo with echodense mass to the catheter tip Patient is a 34-year-old female with a past medical history difficult for diabetes mellitus reflux hypertension seizure disorder history of end-stage renal disease on dialysis through the right subclavian permacatheter with an echocardiogram showing echodense mass to the tip of the dialysis catheter and a question of infection. On today's evaluation that is 09/17/2024, patient has been afebrile, patient is breathing comfortably and is currently on room air, patient denies having any significant cough no chest pain, patient denies nausea vomiting or diarrhea and no abdominal pain, no new symptoms. No new lab has been obtained today last white count was normal per cultures came back positive with gram-positive bacilli Objective - Vital Signs Vital signs: Vital Signs Temp 98.2 F 09/17/24 11:52 Pulse 84 09/17/24 11:52 Resp 14 09/17/24 11:52 BP 152/88 09/17/24 11:52 Pulse Ox 99 09/17/24 11:52 FiO2 40 09/04/24 02:07 Intake & Output 09/16/24 09/17/24 09/17/24 19:59 06:59 18:59 Intake Total 480 Output Total Balance 480 Weight Intake: IV Sodium Chloride 0.9% 1, 000 ml @ 20 mls/hr IV . Q24H [facility] Rx#:[id number] Oral 480 Hemodialysis Output: Urine Hemodialysis Hemodialysis Net Amount Other: Voiding Method Toilet # Voids # Bowel Movements - Exam GENERAL DESCRIPTION: Middle-age female lying in bed in no distress RESPIRATORY SYSTEM: Unlabored breathing , decreased breath sounds at bases HEART: S1 S2 regular rate and rhythm , ABDOMEN: Soft , no tenderness EXTREMITIES: No edema feet - Labs CBC & Chem 7: 09/15/24 07:52 09/15/24 07:52 Labs: Abnormal Lab Results - Last 24 Hours (Table) 09/16/24 09/16/24 09/16/24 Range/Units 16:28 17:23 17:23 POC Glucose (mg/dL) 580 H* 576 H* 552 H* (70-110) mg/dL 09/16/24 09/16/24 09/17/24 Range/Units 18:14 20:15 05:55 POC Glucose (mg/dL) 508 H* 415 H 139 H (70-110) mg/dL 09/17/24 Range/Units 11:25 POC Glucose (mg/dL) 185 H (70-110) mg/dL Microbiology - Last 24 Hours (Table) 09/15/24 12:53 Blood Culture Gram Stain - Preliminary Blood Blood Culture - Preliminary Assessment and Plan (1) Abnormal echocardiogram Current Visit: Yes Status: Acute Code(s): R93.1 - ABNORMAL FINDINGS ON DX IMAGING OF HEART AND COR CIRC SNOMED Code(s): 158053202 Plan: 1patient with abnormal echo with evidence of hypodense lesion at the tip of the dialysis catheter in the right atrium questionably hematoma as the patient do report issues with the dialysis and clotting clinically not behaving as infection/infected vegetation as the patient did not have any fever or any elevated white count in this hospital stay but not entirely excluded 2-blood culture has been obtained peripherally also from the dialysis catheter this morning 3-patient did have a normal CRP there will make infectious etiology to be less likely, did have a positive blood culture with gram-positive bacilli more likely contamination we will follow-up on the repeat cultures if they are positive too then will need a HAYDER to confirm the abnormality seen on the 2D echocardiogram on the permacatheter tip Dictation was produced using [employer] dictation software. please excuse any grammatical, word or spelling errors. Time with Patient: Less than 30
[2024-09-17 16:32] LABS: Glucose,Whole Blood 332 mg/dL (70-110)
[2024-09-17 20:02] LABS: Glucose,Whole Blood 377 mg/dL (70-110)
[2024-09-18 06:12] LABS: Glucose,Whole Blood 182 mg/dL (70-110)
[2024-09-18] MEDS: INSULIN ASPART (NovoLOG) 100 UNIT/ML VIAL SQ SCH (06:26)
[2024-09-18 07:48] LABS: Anisocytosis Slight; Basophils % (A) 0 %; Eosinophils # (A) 0.9 k/uL (0-0.7); Eosinophils % (A) 13 %; HCT 28.8 % (34.0-46.0); Lymphocytes % (A) 15 %; MCH 31.1 pg (25.0-35.0); MCHC 32.4 g/dL (31.0-37.0); Mean Platelet Volume 8.8; Monocytes # (A) 0.4 k/uL (0-1.0); Monocytes % (A) 6 %; Neutrophils # (A) 4.5 k/uL (1.3-7.7); Neutrophils % (A) 64 %; Platelet Count 240 k/uL (150-450); RDW 16.7 % (11.5-15.5); WBC 6.9 k/uL (3.8-10.6)
[2024-09-18 07:52] LABS: HGB 9.3 gm/dL (11.4-16.0)
[2024-09-18 08:07] LABS: African American GFR (CKD) 9 (>60 ml/min/1.73 sqM); Anion Gap 12 mmol/L; Blood Urea Nitrogen 46 mg/dL (7-17); Calcium 9.3 mg/dL (8.4-10.2); Carbon Dioxide 21 mmol/L (22-30); Chloride 95 mmol/L (98-107); Glucose 196 mg/dL (74-99); Non-African American GFR(CKD) 8 (>60 ml/min/1.73 sqM); Potassium 5.6 mmol/L (3.5-5.1); Sodium 128 mmol/L (137-145)
--- NOTE | 2024-09-18 10:27 | P.PN ---
Subjective Patient is seen in follow-up for end-stage renal disease. Tolerating dialysis well. Feels tired. Vital signs are stable. General: No acute distress. HEENT: Head exam is unremarkable. On room air. LUNGS: No audible rhonchi or wheezes. HEART: Rate and Rhythm are regular. ABDOMEN: Nontender. EXTREMITITES: No edema. Objective - Vital Signs Vital signs: Vital Signs Temp 98 F 09/18/24 09:12 Pulse 88 09/18/24 09:12 Resp 14 09/18/24 09:12 BP 187/104 09/18/24 09:12 Pulse Ox 99 09/18/24 09:12 FiO2 40 09/04/24 02:07 Intake & Output 09/17/24 09/18/24 09/18/24 18:59 06:59 18:59 Intake Total 1146 118 Output Total 0 Balance 1146 0 118 Weight 66 kg Intake: Oral 1146 118 Output: Urine 0 Other: Voiding Method Toilet Toilet # Voids 2 - Labs CBC & Chem 7: 09/18/24 06:46 09/18/24 06:46 Labs: Abnormal Lab Results - Last 24 Hours (Table) 09/17/24 09/17/24 09/17/24 Range/Units 11:25 16:31 20:01 RBC (3.80-5.40) m/uL Hgb (11.4-16.0) gm/dL Hct (34.0-46.0) % RDW (11.5-15.5) % Eosinophils # (0-0.7) k/uL Sodium (137-145) mmol/L Potassium (3.5-5.1) mmol/L Chloride (98-107) mmol/L Carbon Dioxide (22-30) mmol/L BUN (7-17) mg/dL Creatinine (0.52-1.04) mg/dL Glucose (74-99) mg/dL POC Glucose (mg/dL) 185 H 332 H 377 H (70-110) mg/dL 09/18/24 09/18/24 09/18/24 Range/Units 06:11 06:46 06:46 RBC 3.00 L (3.80-5.40) m/uL Hgb 9.3 L D (11.4-16.0) gm/dL Hct 28.8 L (34.0-46.0) % RDW 16.7 H (11.5-15.5) % Eosinophils # 0.9 H (0-0.7) k/uL Sodium 128 L (137-145) mmol/L Potassium 5.6 H (3.5-5.1) mmol/L Chloride 95 L (98-107) mmol/L Carbon Dioxide 21 L (22-30) mmol/L BUN 46 H (7-17) mg/dL Creatinine 6.42 H (0.52-1.04) mg/dL Glucose 196 H (74-99) mg/dL POC Glucose (mg/dL) 182 H (70-110) mg/dL Microbiology - Last 24 Hours (Table) 09/16/24 10:59 Blood Culture - Preliminary Blood Assessment and Plan Plan: Assessment: 1. End-stage renal disease maintained on hemodialysis on Wednesday. 2. Acute hypoxic respiratory failure. Currently on room air. 3. Hypertensive emergency. Improved. 4. Chronic kidney disease mineral bone disease maintained on Renvela. 5. Hyperkalemia secondary to chronic kidney disease and hyperglycemia. Entresto also noted on medication list. 6. Type 1 diabetes mellitus. 7. Volume overload. Improved with ultrafiltration. 8. Hypertonic hyponatremia secondary to hyperglycemia. Also component of h ypervolemia. 9. Metabolic acidosis secondary to hyperglycemia. Improved postdialysis. 10. Gram-positive bacteremia. Questionable contamination. ID following. 11. Small pericardial effusion. Plan: Currently seen while undergoing hemodialysis. Another treatment tomorrow. Blood glucose control. Follow-up cultures. Decrease dose of colchicine.
[2024-09-18 11:31] LABS: Glucose,Whole Blood 108 mg/dL (70-110)
--- NOTE | 2024-09-18 12:40 | P.PN ---
Subjective Progress Note Date: 09/18/24 Principal diagnosis: Reason for follow-up is abnormal echo with echodense mass to the catheter tip Patient is a 34-year-old female with a past medical history difficult for diabetes mellitus reflux hypertension seizure disorder history of end-stage renal disease on dialysis through the right subclavian permacatheter with an echocardiogram showing echodense mass to the tip of the dialysis catheter and a question of infection. On today's evaluation that is 09/18/2024, Patient is afebrile this morning patient denies having any chest pain shortness of breath or cough, the patient is currently on room air, patient denies any abdominal pain did have some nausea discussed with the heating technician who did mention she do have issues with pulling up blood clots at the start of the dialysis. Patient white count 6.9, creatinine 6.42 blood culture repeat currently pending Objective - Vital Signs Vital signs: Vital Signs Temp 98.2 F 09/18/24 11:40 Pulse 92 09/18/24 11:40 Resp 14 09/18/24 11:40 BP 176/102 09/18/24 11:40 Pulse Ox 99 09/18/24 11:40 FiO2 40 09/04/24 02:07 Intake & Output 09/17/24 09/18/24 09/18/24 18:59 06:59 18:59 Intake Total 1146 118 Output Total 0 Balance 1146 0 118 Weight 66 kg Intake: Oral 1146 118 Output: Urine 0 Other: Voiding Method Toilet Toilet # Voids 2 - Exam GENERAL DESCRIPTION: Middle-age female lying in bed in no distress RESPIRATORY SYSTEM: Unlabored breathing , decreased breath sounds at bases HEART: S1 S2 regular rate and rhythm , ABDOMEN: Soft , no tenderness EXTREMITIES: No edema feet - Labs CBC & Chem 7: 09/18/24 06:46 09/18/24 06:46 Labs: Abnormal Lab Results - Last 24 Hours (Table) 09/17/24 09/17/24 09/18/24 Range/Units 16:31 20:01 06:11 RBC (3.80-5.40) m/uL Hgb (11.4-16.0) gm/dL Hct (34.0-46.0) % RDW (11.5-15.5) % Eosinophils # (0-0.7) k/uL Sodium (137-145) mmol/L Potassium (3.5-5.1) mmol/L Chloride (98-107) mmol/L Carbon Dioxide (22-30) mmol/L BUN (7-17) mg/dL Creatinine (0.52-1.04) mg/dL Glucose (74-99) mg/dL POC Glucose (mg/dL) 332 H 377 H 182 H (70-110) mg/dL 09/18/24 09/18/24 Range/Units 06:46 06:46 RBC 3.00 L (3.80-5.40) m/uL Hgb 9.3 L D (11.4-16.0) gm/dL Hct 28.8 L (34.0-46.0) % RDW 16.7 H (11.5-15.5) % Eosinophils # 0.9 H (0-0.7) k/uL Sodium 128 L (137-145) mmol/L Potassium 5.6 H (3.5-5.1) mmol/L Chloride 95 L (98-107) mmol/L Carbon Dioxide 21 L (22-30) mmol/L BUN 46 H (7-17) mg/dL Creatinine 6.42 H (0.52-1.04) mg/dL Glucose 196 H (74-99) mg/dL POC Glucose (mg/dL) (70-110) mg/dL Microbiology - Last 24 Hours (Table) 09/16/24 10:59 Blood Culture - Preliminary Blood Assessment and Plan (1) Abnormal echocardiogram Current Visit: Yes Status: Acute Code(s): R93.1 - ABNORMAL FINDINGS ON DX IMAGING OF HEART AND COR CIRC SNOMED Code(s): 133272512 (2) Positive blood culture Current Visit: Yes Status: Acute Code(s): R78.81 - BACTEREMIA SNOMED Code(s): 362148677 Plan: 1patient with abnormal echo with evidence of hypodense lesion at the tip of the dialysis catheter in the right atrium questionably hematoma as the patient do report issues with the dialysis and clotting clinically not behaving as infection/infected vegetation as the patient did not have any fever or any elevated white count in this hospital stay but not entirely excluded 2-blood culture has been obtained peripherally also [facility] 3-patient did have a normal CRP there will make infectious etiology to be less likely, did have a positive blood culture with gram-positive bacilli more likely contamination repeat blood culture still pending however with the heating technician reporting pulling out clots when she started the dialysis more likely will be seen at the tip of the dialysis cath is more likely blood clot rather than infectious vegetation Dictation was produced using [employer] dictation software. please excuse any grammatical, word or spelling errors. Time with Patient: Less than 30
--- NOTE | 2024-09-18 15:26 | P.PN ---
Subjective Progress Note Date: 09/18/24 09/18/2024, patient is being seen for a follow-up. Patient is undergoing hemodialysis today. Blood pressure remains quite elevated and nephrology is on the case. The patient on a combination of antihypertensive medication and the patient is currently on Catapres 0.3 mg p.o. 3 times daily, hydralazine 150 mg p.o. 4 times daily, Norvasc 10 mg p.o. daily, Imdur 60 mg p.o. daily, labetalol 500 mg p.o. twice daily. Most recent blood pressure was measured to be at 169/90. She remains on room air oxygen. The white cell count at 6.1 with a hemoglobin 9.3 and a platelet count of 240. Sodium levels at 128, potassium of is at 5.6, BUN is 46 and a creatinine is at 6.42. The patient has no significant respiratory distress at this point in time. No shortness of breath. Chronic recurrent chest pain is still present. Objective - Vital Signs Vital signs: Vital Signs Temp 98 F 09/18/24 09:12 Pulse 88 09/18/24 09:12 Resp 14 09/18/24 09:12 BP 187/104 09/18/24 09:12 Pulse Ox 99 09/18/24 09:12 FiO2 40 09/04/24 02:07 Intake & Output 09/17/24 09/18/24 09/18/24 18:59 06:59 18:59 Intake Total 1146 118 Output Total 0 Balance 1146 0 118 Weight 66 kg Intake: Oral 1146 118 Output: Urine 0 Other: Voiding Method Toilet Toilet # Voids 2 - Exam GENERAL EXAM: Alert, 34-year-old female, resting in bed, on room air, no acute distress. HEAD: Normocephalic. EYES: Normal reaction of pupils, equal size. NOSE: Clear with pink turbinates. Recent epistaxis. THROAT: No erythema or exudates. NECK: No masses, no JVD. CHEST: No chest wall deformity. Dialysis catheter on the right LUNGS: Fine crackles at the bases. No rhonchi no wheezes. CVS: S1 and S2 normal with no audible murmur, regular rhythm. ABDOMEN: No hepatosplenomegaly, normal bowel sounds, no guarding or rigidity. SKIN: No rashes CENTRAL NERVOUS SYSTEM: No focal deficits, tone is normal in all 4 extremities. EXTREMITIES: There is no peripheral edema. No clubbing, no cyanosis. Peripheral pulses are intact. - Labs CBC & Chem 7: 09/18/24 06:46 09/18/24 06:46 Labs: Abnormal Lab Results - Last 24 Hours (Table) 09/17/24 09/17/24 09/18/24 Range/Units 16:31 20:01 06:11 RBC (3.80-5.40) m/uL Hgb (11.4-16.0) gm/dL Hct (34.0-46.0) % RDW (11.5-15.5) % Eosinophils # (0-0.7) k/uL Sodium (137-145) mmol/L Potassium (3.5-5.1) mmol/L Chloride (98-107) mmol/L Carbon Dioxide (22-30) mmol/L BUN (7-17) mg/dL Creatinine (0.52-1.04) mg/dL Glucose (74-99) mg/dL POC Glucose (mg/dL) 332 H 377 H 182 H (70-110) mg/dL 09/18/24 09/18/24 Range/Units 06:46 06:46 RBC 3.00 L (3.80-5.40) m/uL Hgb 9.3 L D (11.4-16.0) gm/dL Hct 28.8 L (34.0-46.0) % RDW 16.7 H (11.5-15.5) % Eosinophils # 0.9 H (0-0.7) k/uL Sodium 128 L (137-145) mmol/L Potassium 5.6 H (3.5-5.1) mmol/L Chloride 95 L (98-107) mmol/L Carbon Dioxide 21 L (22-30) mmol/L BUN 46 H (7-17) mg/dL Creatinine 6.42 H (0.52-1.04) mg/dL Glucose 196 H (74-99) mg/dL POC Glucose (mg/dL) (70-110) mg/dL Microbiology - Last 24 Hours (Table) 09/16/24 10:59 Blood Culture - Preliminary Blood Assessment and Plan Plan: Acute hypoxemic respiratory failure secondary to an acute episode of pulmonary edema and fluid volume overload, significantly improved after dialysis stable and on room air Hypertensive with a poorly controlled blood pressure, currently covered with multiple antihypertensive medications. End-stage renal disease requiring hemodialysis 4 times per week, undergoing hemodialysis this morning Hyperkalemia secondary to above Diabetes mellitus, insulin-dependent Anemia of chronic disease History of CVA/TIA History of optic neuritis Hypothyroidism History of depression Abnormal echocardiogram, patient with abnormal echo with evidence of hypodense lesion at the tip of the dialysis catheter in the right atrium questionably hematoma as the patient do report issues with the dialysis and clotting clinically not behaving as infection/infected vegetation as the patient did not have any fever or any elevated white count in this hospital stay but not entirely excluded Plan: Monitor the blood pressure and adjust antihypertensive medications accordingly Continue hemodialysis Stable and on room air Nephrology is on the case
--- NOTE | 2024-09-18 15:31 | P.PN ---
Subjective Progress Note Date: 09/18/24 This is a very pleasant 34-year-old female patient with a past medical history significant for end-stage renal disease on dialysis through hemodialysis catheter as well as hypertension and dyslipidemia and diabetes and multiple comorbid conditions who was admitted to the hospital with attention emergency which has improved significantly. We consulted to see the patient because of chest discomfort which we felt is pleuritic and noncardiac. The chest discomfort is mostly when she take a deep breath. D-dimer came in to be unremarkable with the echo showed preserved LV systolic function with a small pericardial effusion and also showed an echodensity attached to the hemodialysis catheter in the right atrium. Infectious disease specialist was consulted to see the patient. Troponin came to be mildly elevated but flat across the board and the EKG did not show any ischemic ST or T wave abnormalities and the chest discomfort is clearly not anginal/noncardiac. September 16, 2024 The patient was seen and evaluated this morning which she is overall stable with improvement in the blood pressure which she continues to have intermittent episodes of chest discomfort with the same nature as described above. She is euvolemic on examination. Infectious disease specialist consulted to see the patient. Blood culture was drawn. We added colchicine to the current medical regimen for presumably pericarditis component. The examination is remarkable for regular rhythm with a soft systolic murmur and clear breathing sounds bilaterally and no edema was noted in the lower extremities September 17, 2024 The patient was seen and evaluated this morning which she is feeling overall better. The chest discomfort is better. The pressure still elevated and consistent with stage II hypertension. I am going to increase the dose of isosorbide mononitrate and beside that she is on maximum dose of dihydropyridine calcium channel stephanie and maximum dose of beta-stephanie and also she is on high-dose clonidine and also she is on high-dose of hydralazine. Blood culture was sent and still pending as of now. Infectious disease on the case. If there is no concern regarding any infection and the patient continues to have chest discomfort I believe she need to undergo a heart catheterization. Examination is remarkable for regular rhythm with a soft systolic murmur and clear breathing sounds bilaterally and no edema was noted in the lower extremities 09/18 Patient is seen and examined. She is undergoing hemodialysis today. She is complaining of some chest pain and there are noted EKG changes with Q waves in the inferior leads lateral ST-T wave changes. Blood pressure is 176/102, pulse ox 99% on room air, heart rate 92. Repeat blood work reveals hemoglobin 9.3. Sodium 128, potassium 5.6, BUN 46 creatinine 6.42. Blood pressures remain quite elevated. Imdur was increased yesterday. Examination is remarkable for regular rhythm with a soft systolic murmur and clear breathing sounds bilaterally and no edema was noted in the lower extremities Assessment Hypertension emergency which has improved Evidence of myocardial injury with no evidence of ischemia Small pericardial effusion End-stage renal disease on dialysis Possible infected hemodialysis catheter Multiple comorbid conditions Plan Patient is currently on the following blood pressure medications: Amlodipine 10 mg daily, clonidine 0.3 mg 3 times daily, hydralazine 150 mg 4 times daily, labetalol 500 mg twice daily Continue aspirin 81 mg daily, atorvastatin 40 mg at bedtime, Imdur 60 mg daily No medication changes made today Follow-up regarding ruling out infection at the tip of the dialysis catheter If she remains symptomatic in terms of chest discomfort and infection has been ruled out the patient need to undergo a heart catheterization Nurse practitioner note has been reviewed, I agree with documented findings and plan of care. Patient was seen and examined. Objective - Vital Signs Vital signs: Vital Signs Temp 98 F 09/18/24 09:12 Pulse 88 09/18/24 09:12 Resp 14 09/18/24 09:12 BP 187/104 09/18/24 09:12 Pulse Ox 99 09/18/24 09:12 FiO2 40 09/04/24 02:07 Intake & Output 09/17/24 09/18/24 09/18/24 18:59 06:59 18:59 Intake Total 1146 118 Output Total 0 Balance 1146 0 118 Weight 66 kg Intake: Oral 1146 118 Output: Urine 0 Other: Voiding Method Toilet Toilet # Voids 2 - Labs CBC & Chem 7: 09/18/24 06:46 09/18/24 06:46 Labs: Abnormal Lab Results - Last 24 Hours (Table) 09/17/24 09/17/24 09/17/24 Range/Units 11:25 16:31 20:01 RBC (3.80-5.40) m/uL Hgb (11.4-16.0) gm/dL Hct (34.0-46.0) % RDW (11.5-15.5) % Eosinophils # (0-0.7) k/uL Sodium (137-145) mmol/L Potassium (3.5-5.1) mmol/L Chloride (98-107) mmol/L Carbon Dioxide (22-30) mmol/L BUN (7-17) mg/dL Creatinine (0.52-1.04) mg/dL Glucose (74-99) mg/dL POC Glucose (mg/dL) 185 H 332 H 377 H (70-110) mg/dL 09/18/24 09/18/24 09/18/24 Range/Units 06:11 06:46 06:46 RBC 3.00 L (3.80-5.40) m/uL Hgb 9.3 L D (11.4-16.0) gm/dL Hct 28.8 L (34.0-46.0) % RDW 16.7 H (11.5-15.5) % Eosinophils # 0.9 H (0-0.7) k/uL Sodium 128 L (137-145) mmol/L Potassium 5.6 H (3.5-5.1) mmol/L Chloride 95 L (98-107) mmol/L Carbon Dioxide 21 L (22-30) mmol/L BUN 46 H (7-17) mg/dL Creatinine 6.42 H (0.52-1.04) mg/dL Glucose 196 H (74-99) mg/dL POC Glucose (mg/dL) 182 H (70-110) mg/dL Microbiology - Last 24 Hours (Table) 09/16/24 10:59 Blood Culture - Preliminary Blood
[2024-09-18] MEDS: SODIUM POLYSTYRENE SULFONATE 15 GM/60 ML BOTTLE PO ONE (16:37)
[2024-09-18 16:42] LABS: Glucose,Whole Blood 223 mg/dL (70-110)
[2024-09-18 20:11] LABS: Glucose,Whole Blood 337 mg/dL (70-110)
[2024-09-19 01:56] LABS: Glucose,Whole Blood 198 mg/dL (70-110)
[2024-09-19 06:39] LABS: Glucose,Whole Blood 134 mg/dL (70-110)
[2024-09-19] MEDS: COLCHICINE 0.6 MG EACH PO SCH (09:19)
--- NOTE | 2024-09-19 10:06 | P.PN ---
Subjective Progress Note Date: 09/16/24 Patient is a 34-year-old female with a past medical history of hypertension, diabetes type 1, ESRD on hemodialysis/4 times a week., Seizure disorder and hypothyroidism and also history of gastroparesis and chronic pain, anxiety/depression. Patient presents to ER with complaints of shortness of breath. Patient states that she had last hemodialysis on Wednesday. She has been doing well until 11 PM and started having shortness of breath and rapidly worsening. EMS was called and patient was transported to ER. Patient was placed on BiPAP and wrote. She was also having chest tightness along with horacio rtness of breath. Denied any worsening swelling in the legs. No fever no chills. No nausea vomiting or diarrhea. No headache or dizziness. Chest x-ray showed findings consistent with CHF exacerbation/fluid overload state. EKG showed sinus tachycardia with heart rate 105 Laboratory test showed WBC 9.2 hemoglobin 10.7 and platelets 374 Sodium 134 potassium 6.2 with slight hemolysis Chloride 98 bicarb is 25 BUN 74 and creatinine 7.58 and blood sugar 266. Lactic acid 1.0 AST 147 ALT 196 and alk phos 138, troponin 0.012 and proBNP 58,200. Patient's blood pressure was 171/120 pulse 111 respiration 24 on admission. Patient was started on nitro drip in the ER. 09/05/2024 Patient is in the MICU. Currently requiring 3 L oxygen via nasal cannula. No complaints of chest pain. Complains of shortness of breath. Also complains of nausea. No close of vomiting. Patient is also being continued on Cleviprex drip. Nitroglycerin drip has been discontinued. Patient is currently undergoing hemodialysis and planning for 4Lultrafiltration. Blood pressure is also poorly controlled with SBP in 140s. Laboratory showed WBC 12.4 hemoglobin 10.5 and platelets 341 sodium 129 potassium 5.9 chloride 87 bicarb is 17 BUN 39 creatinine 5.1 blood sugar 611 AST 68 ALT is 139 alk phos 168. Critical care team and nephrology is on board. 09/06/2024 Patient is here in the MICU. Still complains of pain. Shortness of breath is much improved. Blood pressure is also better. Nitroglycerin drip has been discontinued. Patient is currently on room air. Underwent hemodialysis yesterday. Nephrology and critical care team on board. Patient is being transferred to medical floor today. Blood sugar is elevated to 308 this morning. Started on insulin regimen and titrate dose as needed. Other laborato ry data showed A1c 8.3 phosphorus 6.9 sodium 131 and potassium 4.7 and chloride 94. 09/07/2024 Patient is in the medical floor. Resting in the bed. Awake alert and oriented x 3. Patient is getting hemodialysis with 4 L goal of ultrafiltration. Patient is currently room air. No complaints of chest pain or worsening shortness of breath. Patient still complaining of pain and nausea. Improved with medications. Blood pressure is still elevated today afternoon. Nephrology and pulmonary is on board. Laboratory data showed WBC 9 point hemoglobin 9.1 and platelets 308 sodium 126 potassium 4.4 chloride 191 bicarb is 23 BUN 13 and creatinine was 6.19 and blood sugar 228 and phosphorus 7.2. 09/08/2024 Patient is in the medical floor. Awake alert and oriented x 3. Still complains of nausea and generalized pain. Patient is also very oxygen via nasal cannula. Saturating at 90% on room air. Blood pressure is still elevated. Patient is scheduled for hemodialysis tomorrow. Laboratory data showed sodium 134 potassium 4.1 chloride 92 bicarb is 26.8 BUN 17.6 and creatinine 4.6 and blood sugar 142 and calcium 9.2. Patient has been afebrile. No headache or dizziness. No cough or sputum production. Nephrology and pulmonary is on board. 09/11/2021 Patient is lying in the bed. Awake alert and oriented. Complains of pain and shortness of breath. Blood pressure was high this morning with SBP's 170s. Patient is currently undergoing hemodialysis and blood pressure went down to 112/74. No complaints of dizziness or lightheadedness. Nosebleed has improved. Laboratory data showed sodium 131 potassium 4.9 chloride 89, bicarb is 31 BUN 31 and creatinine 8.37 and blood sugar 85. Calcium 9.2. Current medications reviewed. 09/16/2024 Patient is lying in the bed. Awake alert and oriented x 3. Still complains of chest discomfort. Blood pressure is elevated. Patient was also started on colchicine. Blood pressure medications are being titrated. Other laboratory data reviewed. Continued on pain medications. Objective - Vital Signs Vital signs: Vital Signs Temp 97.9 F 09/16/24 09:31 Pulse 83 09/16/24 09:31 Resp 14 09/16/24 09:31 BP 155/84 09/16/24 09:31 Pulse Ox 97 09/16/24 09:31 FiO2 40 09/04/24 02:07 Intake & Output 09/15/24 09/16/24 09/16/24 18:59 06:59 18:59 Intake Total 860 600 480 Balance 860 600 480 Weight 63.1 kg Intake: Oral 860 600 480 Other: Voiding Method Toilet Toilet # Voids 1 1 - Exam PHYSICAL EXAMINATION: Patient is lying in the bed , no acute distress, awake alert and oriented.. HEENT: Normocephalic. Neck is supple. Pupils reactive. Nostrils clear. Oral cavity is moist. Neck reveals no JVD, carotid bruits, or thyromegaly. CHEST EXAMINATION: Trachea is central. Symmetrical expansion. Bibasilar diminished sounds. No wheezing or rhonchi.. CARDIAC: Normal S1, S2 with no gallops. No murmurs ABDOMEN: Soft. Bowel sounds normal. No organomegaly. No abdominal bruits. Extremities: Bilateral lower extremity trace edema. No clubbing or cyanosis Neurologically awake, alert, oriented x3 with well-coordinated movements. No focal deficits noted Skin: No rash or skin lesions. Psychiatric: Coperative. Nonsuicidal Musculoskeletal: No joint swelling or deformity. - Labs CBC & Chem 7: 09/18/24 06:46 09/18/24 06:46 Labs: Abnormal Lab Results - Last 24 Hours (Table) 09/15/24 09/15/24 09/15/24 Range/Units 11:19 16:06 20:41 POC Glucose (mg/dL) 219 H 310 H 463 H (70-110) mg/dL 09/16/24 Range/Units 05:51 POC Glucose (mg/dL) 207 H (70-110) mg/dL Assessment and Plan Assessment: Hypertensive emergency requiring nitroglycerin drip on admission. Currently off drip. Acute hypoxic respiratory failure due to pulmonary edema/volume overload. Requiring BiPAP on admission. Transitioned on to room air. Elevated liver enzymes on admission. Elevated troponin level due to myocardial injury. Chest pain likely pleuritic ESRD on hemodialysis Wednesday and Wednesday Hyperkalemia secondary to CKD Hypertension uncontrolled Diabetes type 1 History of CVA/TIA History of optic neuritis Hypothyroidism Anxiety/depression DVT prophylaxis with heparin subcu Plan: Patient is getting hemodialysis per schedule. Started back on home blood pressure medications. Continue to titrate doses. Blood pressure is elevated before dialysis.. Hemodialysis as per schedule. 4 times per week. Continue with Levemir 10 units twice daily and insulin sliding scale. Patient did have hypoglycemic episodes. Started on NovoLog 3 units 3 times daily AC. Blood sugar is fluctuating. Symptomatic management for nausea and continued pain management. Cardiology and nephrology is on board. Continue with oxygen supplementation and follow-up closely. GI and DVT prophylaxis. Time with Patient: Greater than 30
--- NOTE | 2024-09-19 10:08 | P.PN ---
Subjective Progress Note Date: 09/17/24 Patient is a 34-year-old female with a past medical history of hypertension, diabetes type 1, ESRD on hemodialysis/4 times a week., Seizure disorder and hypothyroidism and also history of gastroparesis and chronic pain, anxiety/depression. Patient presents to ER with complaints of shortness of breath. Patient states that she had last hemodialysis on Wednesday. She has been doing well until 11 PM and started having shortness of breath and rapidly worsening. EMS was called and patient was transported to ER. Patient was placed on BiPAP and wrote. She was also having chest tightness along with horacio rtness of breath. Denied any worsening swelling in the legs. No fever no chills. No nausea vomiting or diarrhea. No headache or dizziness. Chest x-ray showed findings consistent with CHF exacerbation/fluid overload state. EKG showed sinus tachycardia with heart rate 105 Laboratory test showed WBC 9.2 hemoglobin 10.7 and platelets 374 Sodium 134 potassium 6.2 with slight hemolysis Chloride 98 bicarb is 25 BUN 74 and creatinine 7.58 and blood sugar 266. Lactic acid 1.0 AST 147 ALT 196 and alk phos 138, troponin 0.012 and proBNP 58,200. Patient's blood pressure was 171/120 pulse 111 respiration 24 on admission. Patient was started on nitro drip in the ER. 09/05/2024 Patient is in the MICU. Currently requiring 3 L oxygen via nasal cannula. No complaints of chest pain. Complains of shortness of breath. Also complains of nausea. No close of vomiting. Patient is also being continued on Cleviprex drip. Nitroglycerin drip has been discontinued. Patient is currently undergoing hemodialysis and planning for 4Lultrafiltration. Blood pressure is also poorly controlled with SBP in 140s. Laboratory showed WBC 12.4 hemoglobin 10.5 and platelets 341 sodium 129 potassium 5.9 chloride 87 bicarb is 17 BUN 39 creatinine 5.1 blood sugar 611 AST 68 ALT is 139 alk phos 168. Critical care team and nephrology is on board. 09/06/2024 Patient is here in the MICU. Still complains of pain. Shortness of breath is much improved. Blood pressure is also better. Nitroglycerin drip has been discontinued. Patient is currently on room air. Underwent hemodialysis yesterday. Nephrology and critical care team on board. Patient is being transferred to medical floor today. Blood sugar is elevated to 308 this morning. Started on insulin regimen and titrate dose as needed. Other laborato ry data showed A1c 8.3 phosphorus 6.9 sodium 131 and potassium 4.7 and chloride 94. 09/07/2024 Patient is in the medical floor. Resting in the bed. Awake alert and oriented x 3. Patient is getting hemodialysis with 4 L goal of ultrafiltration. Patient is currently room air. No complaints of chest pain or worsening shortness of breath. Patient still complaining of pain and nausea. Improved with medications. Blood pressure is still elevated today afternoon. Nephrology and pulmonary is on board. Laboratory data showed WBC 9 point hemoglobin 9.1 and platelets 308 sodium 126 potassium 4.4 chloride 191 bicarb is 23 BUN 13 and creatinine was 6.19 and blood sugar 228 and phosphorus 7.2. 09/08/2024 Patient is in the medical floor. Awake alert and oriented x 3. Still complains of nausea and generalized pain. Patient is also very oxygen via nasal cannula. Saturating at 90% on room air. Blood pressure is still elevated. Patient is scheduled for hemodialysis tomorrow. Laboratory data showed sodium 134 potassium 4.1 chloride 92 bicarb is 26.8 BUN 17.6 and creatinine 4.6 and blood sugar 142 and calcium 9.2. Patient has been afebrile. No headache or dizziness. No cough or sputum production. Nephrology and pulmonary is on board. 09/11/2021 Patient is lying in the bed. Awake alert and oriented. Complains of pain and shortness of breath. Blood pressure was high this morning with SBP's 170s. Patient is currently undergoing hemodialysis and blood pressure went down to 112/74. No complaints of dizziness or lightheadedness. Nosebleed has improved. Laboratory data showed sodium 131 potassium 4.9 chloride 89, bicarb is 31 BUN 31 and creatinine 8.37 and blood sugar 85. Calcium 9.2. Current medications reviewed. 09/16/2024 Patient is lying in the bed. Awake alert and oriented x 3. Still complains of chest discomfort. Blood pressure is elevated. Patient was also started on colchicine. Blood pressure medications are being titrated. Other laboratory data reviewed. Continued on pain medications. 09/17/2024 Patient is lying in the bed. Awake alert and orient x 3. Still having some chest discomfort. Otherwise patient feels weak and tired. No complaints of nausea or vomiting. Tolerating oral diet. Undergoing hemodialysis as per elsy juan. Continue blood pressure medications and pain medications. Blood sugars are fluctuating. Continue to titrate insulin dose. Objective - Vital Signs Vital signs: Vital Signs Temp 98.2 F 09/17/24 20:00 Pulse 88 09/17/24 20:00 Resp 14 09/17/24 20:00 BP 137/80 09/17/24 20:00 Pulse Ox 100 09/17/24 20:00 FiO2 40 09/04/24 02:07 Intake & Output 09/17/24 09/17/24 09/18/24 06:59 18:59 06:59 Intake Total 1146 Output Total Balance 1146 Weight Intake: IV Sodium Chloride 0.9% 1, 000 ml @ 20 mls/hr IV . Q24H VY Rx#:[id number] Oral 1146 Output: Urine Other: Voiding Method Toilet Toilet # Voids 2 # Bowel Movements - Exam PHYSICAL EXAMINATION: Patient is lying in the bed , no acute distress, awake alert and oriented.. HEENT: Normocephalic. Neck is supple. Pupils reactive. Nostrils clear. Oral cavity is moist. Neck reveals no JVD, carotid bruits, or thyromegaly. CHEST EXAMINATION: Trachea is central. Symmetrical expansion. Bibasilar diminished sounds. No wheezing or rhonchi.. CARDIAC: Normal S1, S2 with no gallops. No murmurs ABDOMEN: Soft. Bowel sounds normal. No organomegaly. No abdominal bruits. Extremities: Bilateral lower extremity trace edema. No clubbing or cyanosis Neurologically awake, alert, oriented x3 with well-coordinated movements. No focal deficits noted Skin: No rash or skin lesions. Psychiatric: Coperative. Nonsuicidal Musculoskeletal: No joint swelling or deformity. - Labs CBC & Chem 7: 09/18/24 06:46 09/18/24 06:46 Labs: Abnormal Lab Results - Last 24 Hours (Table) 09/17/24 09/17/24 09/17/24 Range/Units 05:55 11: 16:31 POC Glucose (mg/dL) 139 H 185 H 332 H (70-110) mg/dL 09/17/24 Range/Units 20:01 POC Glucose (mg/dL) 377 H (70-110) mg/dL Microbiology - Last 24 Hours (Table) 09/15/24 12:53 Blood Culture Gram Stain - Preliminary Blood Blood Culture - Preliminary Assessment and Plan Assessment: Hypertensive emergency requiring nitroglycerin drip on admission. Currently off drip. Acute hypoxic respiratory failure due to pulmonary edema/volume overload. Requiring BiPAP on admission. Transitioned on to room air. Elevated liver enzymes on admission. Elevated troponin level due to myocardial injury. Chest pain likely pleuritic ESRD on hemodialysis Wednesday and Wednesday Hyperkalemia secondary to CKD Hypertension uncontrolled Diabetes type 1 History of CVA/TIA History of optic neuritis Hypothyroidism Anxiety/depression DVT prophylaxis with heparin subcu Plan: Patient is getting hemodialysis per schedule. Patient was started on colchicine. Started back on home blood pressure medications. Continue to titrate doses. Blood pressure is elevated before dialysis.. Hemodialysis as per schedule. 4 times per week. Continue with Levemir 10 units twice daily and insulin sliding scale. Patient did have hypoglycemic episodes. Started on NovoLog 3 units 3 times daily AC. Blood sugar is fluctuating. Symptomatic management for nausea and continued pain management. Cardiology and nephrology is on board. Continue with oxygen supplementation and follow-up closely. GI and DVT prophylaxis. Time with Patient: Greater than 30
--- NOTE | 2024-09-19 10:10 | P.PN ---
Subjective Progress Note Date: 09/18/24 Patient is a 34-year-old female with a past medical history of hypertension, diabetes type 1, ESRD on hemodialysis/4 times a week., Seizure disorder and hypothyroidism and also history of gastroparesis and chronic pain, anxiety/depression. Patient presents to ER with complaints of shortness of breath. Patient states that she had last hemodialysis on Wednesday. She has been doing well until 11 PM and started having shortness of breath and rapidly worsening. EMS was called and patient was transported to ER. Patient was placed on BiPAP and wrote. She was also having chest tightness along with horacio rtness of breath. Denied any worsening swelling in the legs. No fever no chills. No nausea vomiting or diarrhea. No headache or dizziness. Chest x-ray showed findings consistent with CHF exacerbation/fluid overload state. EKG showed sinus tachycardia with heart rate 105 Laboratory test showed WBC 9.2 hemoglobin 10.7 and platelets 374 Sodium 134 potassium 6.2 with slight hemolysis Chloride 98 bicarb is 25 BUN 74 and creatinine 7.58 and blood sugar 266. Lactic acid 1.0 AST 147 ALT 196 and alk phos 138, troponin 0.012 and proBNP 58,200. Patient's blood pressure was 171/120 pulse 111 respiration 24 on admission. Patient was started on nitro drip in the ER. 09/05/2024 Patient is in the MICU. Currently requiring 3 L oxygen via nasal cannula. No complaints of chest pain. Complains of shortness of breath. Also complains of nausea. No close of vomiting. Patient is also being continued on Cleviprex drip. Nitroglycerin drip has been discontinued. Patient is currently undergoing hemodialysis and planning for 4Lultrafiltration. Blood pressure is also poorly controlled with SBP in 140s. Laboratory showed WBC 12.4 hemoglobin 10.5 and platelets 341 sodium 129 potassium 5.9 chloride 87 bicarb is 17 BUN 39 creatinine 5.1 blood sugar 611 AST 68 ALT is 139 alk phos 168. Critical care team and nephrology is on board. 09/06/2024 Patient is here in the MICU. Still complains of pain. Shortness of breath is much improved. Blood pressure is also better. Nitroglycerin drip has been discontinued. Patient is currently on room air. Underwent hemodialysis yesterday. Nephrology and critical care team on board. Patient is being transferred to medical floor today. Blood sugar is elevated to 308 this morning. Started on insulin regimen and titrate dose as needed. Other laborato ry data showed A1c 8.3 phosphorus 6.9 sodium 131 and potassium 4.7 and chloride 94. 09/07/2024 Patient is in the medical floor. Resting in the bed. Awake alert and oriented x 3. Patient is getting hemodialysis with 4 L goal of ultrafiltration. Patient is currently room air. No complaints of chest pain or worsening shortness of breath. Patient still complaining of pain and nausea. Improved with medications. Blood pressure is still elevated today afternoon. Nephrology and pulmonary is on board. Laboratory data showed WBC 9 point hemoglobin 9.1 and platelets 308 sodium 126 potassium 4.4 chloride 191 bicarb is 23 BUN 13 and creatinine was 6.19 and blood sugar 228 and phosphorus 7.2. 09/08/2024 Patient is in the medical floor. Awake alert and oriented x 3. Still complains of nausea and generalized pain. Patient is also very oxygen via nasal cannula. Saturating at 90% on room air. Blood pressure is still elevated. Patient is scheduled for hemodialysis tomorrow. Laboratory data showed sodium 134 potassium 4.1 chloride 92 bicarb is 26.8 BUN 17.6 and creatinine 4.6 and blood sugar 142 and calcium 9.2. Patient has been afebrile. No headache or dizziness. No cough or sputum production. Nephrology and pulmonary is on board. 09/11/2021 Patient is lying in the bed. Awake alert and oriented. Complains of pain and shortness of breath. Blood pressure was high this morning with SBP's 170s. Patient is currently undergoing hemodialysis and blood pressure went down to 112/74. No complaints of dizziness or lightheadedness. Nosebleed has improved. Laboratory data showed sodium 131 potassium 4.9 chloride 89, bicarb is 31 BUN 31 and creatinine 8.37 and blood sugar 85. Calcium 9.2. Current medications reviewed. 09/16/2024 Patient is lying in the bed. Awake alert and oriented x 3. Still complains of chest discomfort. Blood pressure is elevated. Patient was also started on colchicine. Blood pressure medications are being titrated. Other laboratory data reviewed. Continued on pain medications. 09/17/2024 Patient is lying in the bed. Awake alert and orient x 3. Still having some chest discomfort. Otherwise patient feels weak and tired. No complaints of nausea or vomiting. Tolerating oral diet. Undergoing hemodialysis as per elsy juan. Continue blood pressure medications and pain medications. Blood sugars are fluctuating. Continue to titrate insulin dose. 09/18/2024 Patient is undergoing hemodialysis today. Awake alert and oriented x 3. Requiring 2 L oxygen via nasal cannula. Saturating at 100%. Still complains of some chest pain. Blood pressure is in 170s. Patient was started on Imdur and also on colchicine. Patient has been afebrile. No cough or sputum production. Laboratory showed WBC 6.9 hemoglobin 9.3 and platelets 240 sodium 128 potassium 5.6 chloride 95 bicarb is 21 BUN 46 and creatinine 6.42 and blood sugar is 196. Calcium 9.3. Nephrology and cardiology is on board. Objective - Vital Signs Vital signs: Vital Signs Temp 97.8 F 09/18/24 12:43 Pulse 89 09/18/24 12:43 Resp 18 09/18/24 12:43 BP 169/90 09/18/24 12:43 Pulse Ox 99 09/18/24 11:40 FiO2 40 09/04/24 02:07 Intake & Output 09/17/24 09/18/24 09/18/24 18:59 06:59 18:59 Intake Total 1146 518 Output Total 0 8400 Balance 1146 0 -7882 Weight 66 kg Intake: Oral 1146 118 Hemodialysis 400 Output: Urine 0 Hemodialysis 4400 Hemodialysis Net Amount 4000 Other: Voiding Method Toilet Toilet Toilet # Voids 2 - Exam PHYSICAL EXAMINATION: Patient is lying in the bed , no acute distress, awake alert and oriented.. HEENT: Normocephalic. Neck is supple. Pupils reactive. Nostrils clear. Oral cavity is moist. Neck reveals no JVD, carotid bruits, or thyromegaly. CHEST EXAMINATION: Trachea is central. Symmetrical expansion. Bibasilar diminis hed sounds. No wheezing or rhonchi.. CARDIAC: Normal S1, S2 with no gallops. No murmurs ABDOMEN: Soft. Bowel sounds normal. No organomegaly. No abdominal bruits. Extremities: Bilateral lower extremity trace edema. No clubbing or cyanosis Neurologically awake, alert, oriented x3 with well-coordinated movements. No focal deficits noted Skin: No rash or skin lesions. Psychiatric: Coperative. Nonsuicidal Musculoskeletal: No joint swelling or deformity. - Labs CBC & Chem 7: 09/18/24 06:46 09/18/24 06:46 Labs: Abnormal Lab Results - Last 24 Hours (Table) 09/17/24 09/17/24 09/18/24 Range/Units 16:31 20:01 06:11 RBC (3.80-5.40) m/uL Hgb (11.4-16.0) gm/dL Hct (34.0-46.0) % RDW (11.5-15.5) % Eosinophils # (0-0.7) k/uL Sodium (137-145) mmol/L Potassium (3.5-5.1) mmol/L Chloride (98-107) mmol/L Carbon Dioxide (22-30) mmol/L BUN (7-17) mg/dL Creatinine (0.52-1.04) mg/dL Glucose (74-99) mg/dL POC Glucose (mg/dL) 332 H 377 H 182 H (70-110) mg/dL 09/18/24 09/18/24 Range/Units 06:46 06:46 RBC 3.00 L (3.80-5.40) m/uL Hgb 9.3 L D (11.4-16.0) gm/dL Hct 28.8 L (34.0-46.0) % RDW 16.7 H (11.5-15.5) % Eosinophils # 0.9 H (0-0.7) k/uL Sodium 128 L (137-145) mmol/L Potassium 5.6 H (3.5-5.1) mmol/L Chloride 95 L (98-107) mmol/L Carbon Dioxide 21 L (22-30) mmol/L BUN 46 H (7-17) mg/dL Creatinine 6.42 H (0.52-1.04) mg/dL Glucose 196 H (74-99) mg/dL POC Glucose (mg/dL) (70-110) mg/dL Microbiology - Last 24 Hours (Table) 09/16/24 10:59 Blood Culture - Preliminary Blood Assessment and Plan Assessment: Hypertensive emergency requiring nitroglycerin drip on admission. Currently off drip. Acute hypoxic respiratory failure due to pulmonary edema/volume overload. Requiring BiPAP on admission. Transitioned on to room air. Elevated liver enzymes on admission. Elevated troponin level due to myocardial injury. Chest pain likely pleuritic ESRD on hemodialysis Wednesday and Wednesday Hyperkalemia secondary to CKD Hypertension uncontrolled Diabetes type 1 History of CVA/TIA History of optic neuritis Hypothyroidism Anxiety/depression DVT prophylaxis with heparin subcu Plan: Patient is getting hemodialysis per schedule. Patient is undergoing h emodialysis today. Patient was started on colchicine. Imdur dose increased. Started back on home blood pressure medications. Continue to titrate doses. Blood pressure is elevated before dialysis.. Hemodialysis as per schedule. 4 times per week. Continue with Levemir 10 units twice daily and insulin sliding scale. Patient did have hypoglycemic episodes. Started on NovoLog 3 units 3 times daily AC. Blood sugar is fluctuating. Symptomatic management for nausea and continued pain management. Cardiology and nephrology is on board. Continue with oxygen supplementation and follow-up closely. GI and DVT prophylaxis. Time with Patient: Greater than 30
--- NOTE | 2024-09-19 10:37 | P.PN ---
Subjective Patient is seen in follow-up for end-stage renal disease. Tolerating dialysis well. Feels tired. Vital signs are stable. General: No acute distress. HEENT: Head exam is unremarkable. On room air. LUNGS: No audible rhonchi or wheezes. HEART: Rate and Rhythm are regular. ABDOMEN: Nontender. EXTREMITITES: No edema. Objective - Vital Signs Vital signs: Vital Signs Temp 98.3 F 09/19/24 08:00 Pulse 82 09/19/24 08:00 Resp 16 09/19/24 08:00 BP 182/104 09/19/24 08:00 Pulse Ox 99 09/19/24 08:00 FiO2 40 09/04/24 02:07 Intake & Output 09/18/24 09/19/24 09/19/24 18:59 06:59 18:59 Intake Total 518 10 Output Total 8400 0 Balance -7882 10 Weight 63.6 kg Intake: IV 10 Invasive Line 6 10 Oral 118 Hemodialysis 400 Output: Urine 0 Hemodialysis 4400 Hemodialysis Net Amount 4000 Other: Voiding Method Toilet Toilet # Voids 1 # Bowel Movements 0 - Labs CBC & Chem 7: 09/18/24 06:46 09/18/24 06:46 Labs: Abnormal Lab Results - Last 24 Hours (Table) 09/18/24 09/18/24 09/19/24 Range/Units 16:39 20:10 01:49 POC Glucose (mg/dL) 223 H 337 H 198 H (70-110) mg/dL 09/19/24 Range/Units 06:37 POC Glucose (mg/dL) 134 H (70-110) mg/dL Microbiology - Last 24 Hours (Table) 09/17/24 14:42 Blood Culture - Preliminary Blood 09/16/24 10:59 Blood Culture - Preliminary Blood Assessment and Plan Plan: Assessment: 1. End-stage renal disease maintained on hemodialysis on Wednesday. 2. Acute hypoxic respiratory failure. Currently on room air. 3. Hypertensive emergency. Improved. 4. Chronic kidney disease mineral bone disease maintained on Renvela. 5. Hyperkalemia secondary to chronic kidney disease and hyperglycemia. Entresto also noted on medication list. 6. Type 1 diabetes mellitus. 7. Volume overload. Improved with ultrafiltration. 8. Hypertonic hyponatremia secondary to hyperglycemia. Also component of hypervolemia. 9. Metabolic acidosis secondary to hyperglycemia. Improved postdialysis. 10. Gram-positive bacteremia. Questionable contamination. ID following. 11. Small pericardial effusion. 12. Anemia of chronic kidney disease. Plan: Currently seen while undergoing hemodialysis. Tolerated 4 L ultrafiltration yesterday. Blood glucose control. Follow-up cultures. Decreased dose of colchicine to adjust for renal function. Check iron studies.
[2024-09-19 11:15] VITALS: BMI 21.3
[2024-09-19 11:27] LABS: Glucose,Whole Blood 138 mg/dL (70-110)
--- NOTE | 2024-09-19 13:26 | P.PN ---
Subjective Progress Note Date: 09/19/24 09/18/2024, patient is being seen for a follow-up. Patient is undergoing hemodialysis today. Blood pressure remains quite elevated and nephrology is on the case. The patient on a combination of antihypertensive medication and the patient is currently on Catapres 0.3 mg p.o. 3 times daily, hydralazine 150 mg p.o. 4 times daily, Norvasc 10 mg p.o. daily, Imdur 60 mg p.o. daily, labetalol 500 mg p.o. twice daily. Most recent blood pressure was measured to be at 169/90. She remains on room air oxygen. The white cell count at 6.1 with a hemoglobin 9.3 and a platelet count of 240. Sodium levels at 128, potassium of is at 5.6, BUN is 46 and a creatinine is at 6.42. The patient has no significant respiratory distress at this point in time. No shortness of breath. Chronic recurrent chest pain is still present. On 09/19/2024, I am seeing the patient for a follow-up. The patient is undergoing another session of hemodialysis. Yesterday, the patient underwent an ultrafiltration of 3 L and today the goal is 3.9 L. Blood pressure remains elevated despite a combination of antihypertensive medication and the patient continues to have episodes of chest pain. EKG was done and it shows a normal sinus rhythm. No significant ST segment abnormalities. Most recent blood pressure documented on this patient is 182/104 and nephrology is adjusting the blood pressure medication. As mentioned, the patient is currently on clonidine 0.3 mg p.o. 3 times daily, Norvasc 10 mg p.o. daily, hydralazine 150 mg p.o. 4 times daily, Mg 120 mg p.o. daily, Trandate 500 mg p.o. twice daily. Rest of the medications remain unchanged. The patient is currently on 2 L of oxygen by nasal cannula with a pulse ox of 99 to 100%. No new labs are available from today. No headaches. No altered mentation. Objective - Vital Signs Vital signs: Vital Signs Temp 98.3 F 09/19/24 08:00 Pulse 82 09/19/24 08:00 Resp 16 09/19/24 08:00 BP 182/104 09/19/24 08:00 Pulse Ox 99 09/19/24 08:00 FiO2 40 09/04/24 02:07 Intake & Output 09/18/24 09/19/24 09/19/24 18:59 06:59 18:59 Intake Total 518 10 Output Total 8400 0 Balance -7882 10 Weight 63.6 kg Intake: IV 10 Invasive Line 6 10 Oral 118 Hemodialysis 400 Output: Urine 0 Hemodialysis 4400 Hemodialysis Net Amount 4000 Other: Voiding Method Toilet Toilet # Voids 1 # Bowel Movements 0 - Exam GENERAL EXAM: Alert, 34-year-old female, resting in bed, on room air, no acute distress. HEAD: Normocephalic. EYES: Normal reaction of pupils, equal size. NOSE: Clear with pink turbinates. Recent epistaxis. THROAT: No erythema or exudates. NECK: No masses, no JVD. CHEST: No chest wall deformity. Dialysis catheter on the right LUNGS: Fine crackles at the bases. No rhonchi no wheezes. CVS: S1 and S2 normal with no audible murmur, regular rhythm. ABDOMEN: No hepatosplenomegaly, normal bowel sounds, no guarding or rigidity. SKIN: No rashes CENTRAL NERVOUS SYSTEM: No focal deficits, tone is normal in all 4 extremities. EXTREMITIES: There is no peripheral edema. No clubbing, no cyanosis. Peripheral pulses are intact. - Labs CBC & Chem 7: 09/18/24 06:46 09/18/24 06:46 Labs: Abnormal Lab Results - Last 24 Hours (Table) 09/18/24 09/18/24 09/19/24 Range/Units 16:39 20:10 01:49 POC Glucose (mg/dL) 223 H 337 H 198 H (70-110) mg/dL 09/19/24 Range/Units 06:37 POC Glucose (mg/dL) 134 H (70-110) mg/dL Microbiology - Last 24 Hours (Table) 09/17/24 14:42 Blood Culture - Preliminary Blood 09/16/24 10:59 Blood Culture - Preliminary Blood Assessment and Plan Plan: Acute hypoxemic respiratory failure secondary to an acute episode of pulmonary edema and fluid volume overload, significantly improved after dialysis stable and on 2 L of oxygen by nasal cannula. Hypertensive with a poorly controlled blood pressure, currently covered with multiple antihypertensive medications. End-stage renal disease requiring hemodialysis 4 times per week, undergoing hemodialysis this morning Hyperkalemia secondary to above Diabetes mellitus, insulin-dependent Anemia of chronic disease History of CVA/TIA History of optic neuritis Hypothyroidism History of depression Abnormal echocardiogram, patient with abnormal echo with evidence of hypodense lesion at the tip of the dialysis catheter in the right atrium questionably hematoma as the patient do report issues with the dialysis and clotting clinically not behaving as infection/infected vegetation as the patient did not have any fever or any elevated white count in this hospital stay but not entirely excluded Plan: Monitor the blood pressure and adjust antihypertensive medications accordingly, the blood pressure medication regimen was noted and adjustments are being done by nephrology. Continue hemodialysis with a goal of 3.9 L of ultrafiltration today Stable and on room air Nephrology is on the case
[2024-09-19] MEDS: ISOSORBIDE MONONITRATE ER 60 MG TAB.ER.24H PO STA (13:27)
[2024-09-19 15:18] LABS: % Iron Saturation 45.99 (12.00-45.00)
[2024-09-19 16:59] LABS: Glucose,Whole Blood 288 mg/dL (70-110)
[2024-09-19 20:24] LABS: Glucose,Whole Blood 276 mg/dL (70-110)
--- NOTE | 2024-09-19 20:38 | P.PN ---
Subjective Progress Note Date: 09/19/24 This is a very pleasant 34-year-old female patient with a past medical history significant for end-stage renal disease on dialysis through hemodialysis catheter as well as hypertension and dyslipidemia and diabetes and multiple comorbid conditions who was admitted to the hospital with attention emergency which has improved significantly. We consulted to see the patient because of chest discomfort which we felt is pleuritic and noncardiac. The chest discomfort is mostly when she take a deep breath. D-dimer came in to be unremarkable with the echo showed preserved LV systolic function with a small pericardial effusion and also showed an echodensity attached to the hemodialysis catheter in the right atrium. Infectious disease specialist was consulted to see the patient. Troponin came to be mildly elevated but flat across the board and the EKG did not show any ischemic ST or T wave abnormalities and the chest discomfort is clearly not anginal/noncardiac. September 16, 2024 The patient was seen and evaluated this morning which she is overall stable with improvement in the blood pressure which she continues to have intermittent episodes of chest discomfort with the same nature as described above. She is euvolemic on examination. Infectious disease specialist consulted to see the patient. Blood culture was drawn. We added colchicine to the current medical regimen for presumably pericarditis component. The examination is remarkable for regular rhythm with a soft systolic murmur and clear breathing sounds bilaterally and no edema was noted in the lower extremities September 17, 2024 The patient was seen and evaluated this morning which she is feeling overall better. The chest discomfort is better. The pressure still elevated and consistent with stage II hypertension. I am going to increase the dose of isosorbide mononitrate and beside that she is on maximum dose of dihydropyridine calcium channel stephanie and maximum dose of beta-stephanie and also she is on high-dose clonidine and also she is on high-dose of hydralazine. Blood culture was sent and still pending as of now. Infectious disease on the case. If there is no concern regarding any infection and the patient continues to have chest discomfort I believe she need to undergo a heart catheterization. Examination is remarkable for regular rhythm with a soft systolic murmur and clear breathing sounds bilaterally and no edema was noted in the lower extremities 09/18 Patient is seen and examined. She is undergoing hemodialysis today. She is complaining of some chest pain and there are noted EKG changes with Q waves in the inferior leads lateral ST-T wave changes. Blood pressure is 176/102, pulse ox 99% on room air, heart rate 92. Repeat blood work reveals hemoglobin 9.3. Sodium 128, potassium 5.6, BUN 46 creatinine 6.42. Blood pressures remain quite elevated. Imdur was increased yesterday. Examination is remarkable for regular rhythm with a soft systolic murmur and clear breathing sounds bilaterally and no edema was noted in the lower extremities September 19, 2024 Patient is seen and examined at bedside this a.m. She continues to complain of substernal chest pressure. Systolic pressure in 180s. Chest pain does get better with sublingual nitroglycerin. Continues to get hemodialysis with 3.5 L of ultrafiltrate removal today. Patient appears depressed and is crying when evaluating her. Assessment Hypertension emergency which has improved Evidence of myocardial injury with no evidence of ischemia Small pericardial effusion End-stage renal disease on dialysis Possible infected hemodialysis catheter Multiple comorbid conditions Plan Patient is currently on the following blood pressure medications: Amlodipine 10 mg daily, clonidine 0.3 mg 3 times daily, hydralazine 150 mg 4 times daily, labetalol 500 mg twice daily Continue aspirin 81 mg daily, atorvastatin 40 mg at bedtime, Increase Imdur to 120 mg daily Patient's chest pain is mostly related to poorly controlled blood pressure. On max therapy, she continues to have poorly controlled blood pressure. I will increase her Imdur today. If blood pressure continues to be high, will talk to nephrology and see if she will benefit from potassium channel stephanie like minoxidil. Would request primary team to evaluate and see if patient has any concerns of dialysis catheter tip infection. If she remains symptomatic in terms of chest discomfort even after blood pressure control, and infection has been ruled out the patient need to undergo a heart catheterization Objective - Vital Signs Vital signs: Vital Signs Temp 98.0 F 09/19/24 20:00 Pulse 92 09/19/24 20:00 Resp 16 09/19/24 20:00 BP 125/74 09/19/24 20:00 Pulse Ox 98 09/19/24 20:00 FiO2 40 09/04/24 02:07 Intake & Output 09/19/24 09/19/24 09/20/24 06:59 18:59 06:59 Intake Total 10 Output Total 0 Balance 10 Weight 63.6 kg 63.6 kg Intake: IV 10 Invasive Line 6 10 Output: Urine 0 Other: Voiding Method Toilet # Voids 1 - Labs CBC & Chem 7: 09/18/24 06:46 09/18/24 06:46 Labs: Abnormal Lab Results - Last 24 Hours (Table) 09/19/24 09/19/24 09/19/24 Range/Units 01:49 06:37 11:00 POC Glucose (mg/dL) 198 H 134 H (70-110) mg/dL % Saturation 45.99 H (12.00-45.00) Ferritin 520.0 H (10.0-291.0) ng/mL 09/19/24 09/19/24 09/19/24 Range/Units 11:21 16:56 20:22 POC Glucose (mg/dL) 138 H 288 H 276 H (70-110) mg/dL % Saturation (12.00-45.00) Ferritin (10.0-291.0) ng/mL Microbiology - Last 24 Hours (Table) 09/15/24 12:53 Blood Culture Gram Stain - Final Blood Blood Culture - Final Corynebacterium species 09/17/24 14:42 Blood Culture - Preliminary Blood 09/16/24 10:59 Blood Culture - Preliminary Blood
--- NOTE | 2024-09-19 22:17 | P.PN ---
Subjective Progress Note Date: 09/19/24 Principal diagnosis: Reason for follow-up is abnormal echo with echodense mass to the catheter tip Patient is a 34-year-old female with a past medical history difficult for diabetes mellitus reflux hypertension seizure disorder history of end-stage renal disease on dialysis through the right subclavian permacatheter with an echocardiogram showing echodense mass to the tip of the dialysis catheter and a question of infection. On today's evaluation that is 09/19/2024,the patient denies any fever or any chills, patient is breathing comfortably on 2 L current oxygen, the patient denies chest pain shortness of breath and no significant cough, patient denies abdominal pain, no nausea vomiting or diarrhea. No new lab has been obtained today blood culture from 09/16/2024 as well as 09/17/2024 has been negative Objective - Vital Signs Vital signs: Vital Signs Temp 97.8 F 09/19/24 11:21 Pulse 92 09/19/24 11:21 Resp 20 09/19/24 11:21 BP 195/116 09/19/24 11:21 Pulse Ox 100 09/19/24 11:21 FiO2 40 09/04/24 02:07 Intake & Output 09/18/24 09/19/24 09/19/24 18:59 06:59 18:59 Intake Total 518 10 Output Total 8400 0 Balance -7882 10 Weight 63.6 kg 63.6 kg Intake: IV 10 Invasive Line 6 10 Oral 118 Hemodialysis 400 Output: Urine 0 Hemodialysis 4400 Hemodialysis Net Amount 4000 Other: Voiding Method Toilet Toilet # Voids 1 # Bowel Movements 0 - Exam GENERAL DESCRIPTION: Middle-age female lying in bed in no distress RESPIRATORY SYSTEM: Unlabored breathing , decreased breath sounds at bases HEART: S1 S2 regular rate and rhythm , ABDOMEN: Soft , no tenderness EXTREMITIES: No edema feet - Labs CBC & Chem 7: 09/18/24 06:46 09/18/24 06:46 Labs: Abnormal Lab Results - Last 24 Hours (Table) 09/18/24 09/18/24 09/19/24 Range/Units 16:39 20:10 01:49 POC Glucose (mg/dL) 223 H 337 H 198 H (70-110) mg/dL 09/19/24 09/19/24 Range/Units 06:37 11:21 POC Glucose (mg/dL) 134 H 138 H (70-110) mg/dL Microbiology - Last 24 Hours (Table) 09/15/24 12:53 Blood Culture Gram Stain - Final Blood Blood Culture - Final Corynebacterium species 09/17/24 14:42 Blood Culture - Preliminary Blood 09/16/24 10:59 Blood Culture - Preliminary Blood Assessment and Plan (1) Abnormal echocardiogram Current Visit: Yes Status: Acute Code(s): R93.1 - ABNORMAL FINDINGS ON DX IMAGING OF HEART AND COR CIRC SNOMED Code(s): 168036117 (2) Positive blood culture Current Visit: Yes Status: Acute Code(s): R78.81 - BACTEREMIA SNOMED Code(s): 742414850 Plan: 1patient with abnormal echo with evidence of hypodense lesion at the tip of the dialysis catheter in the right atrium questionably hematoma as the patient do report issues with the dialysis and clotting clinically not behaving as infection/infected vegetation as the patient did not have any fever or any elevated white count in this hospital stay but not entirely excluded 2-blood culture has been obtained peripherally also from the dialysis catheter which are so far negative 3-patient did have a normal CRP there will make infectious etiology to be less likely, did have a positive blood culture with corynebacterium species more likely contamination with repeat blood culture from 09/16/2024 as well as 09/17/2024 has been negative, no need for systemic antibiotics Dictation was produced using [employer] dictation software. please excuse any grammatical, word or spelling errors. Time with Patient: Greater than 30
[2024-09-20 06:08] LABS: Glucose,Whole Blood 298 mg/dL (70-110)
[2024-09-20] MEDS: ISOSORBIDE MONONITRATE ER 60 MG TAB.ER.24H PO SCH (08:31)
--- NOTE | 2024-09-20 10:52 | P.PN ---
Subjective Patient is seen in follow-up for end-stage renal disease. No problems with dialysis yesterday. Hemodynamically stable. Vital signs are stable. General: No acute distress. HEENT: Head exam is unremarkable. On room air. LUNGS: No audible rhonchi or wheezes. HEART: Rate and Rhythm are regular. ABDOMEN: Nontender. EXTREMITITES: No edema. Objective - Vital Signs Vital signs: Vital Signs Temp 97.1 F L 09/20/24 04:00 Pulse 87 09/20/24 00:00 Resp 16 09/20/24 04:00 BP 140/81 09/20/24 06:18 Pulse Ox 98 09/20/24 09:20 FiO2 40 09/04/24 02:07 Intake & Output 09/19/24 09/20/24 09/20/24 18:59 06:59 18:59 Intake Total 400 356 Output Total 7400 Balance -7000 356 Weight 63.6 kg 63.1 kg Intake: Oral 356 Hemodialysis 400 Output: Hemodialysis 3900 Hemodialysis Net Amount 3500 Other: Voiding Method Toilet # Voids 0 # Bowel Movements 0 - Labs CBC & Chem 7: 09/18/24 06:46 09/18/24 06:46 Labs: Abnormal Lab Results - Last 24 Hours (Table) 09/19/24 09/19/24 09/19/24 Range/Units 11:00 11: 16:56 POC Glucose (mg/dL) 138 H 288 H (70-110) mg/dL % Saturation 45.99 H (12.00-45.00) Ferritin 520.0 H (10.0-291.0) ng/mL 09/19/24 09/20/24 Range/Units 20:22 06:07 POC Glucose (mg/dL) 276 H 298 H (70-110) mg/dL % Saturation (12.00-45.00) Ferritin (10.0-291.0) ng/mL Microbiology - Last 24 Hours (Table) 09/17/24 14:42 Blood Culture - Preliminary Blood 09/16/24 10:59 Blood Culture - Preliminary Blood 09/15/24 12:53 Blood Culture Gram Stain - Final Blood Blood Culture - Final Corynebacterium species Assessment and Plan Plan: Assessment: 1. End-stage renal disease maintained on hemodialysis on Wednesday. 2. Acute hypoxic respiratory failure. Currently on room air. 3. Hypertensive emergency. Improved. 4. Chronic kidney disease mineral bone disease maintained on Renvela. 5. Hyperkalemia secondary to chronic kidney disease and hyperglycemia. Entresto also noted on medication list. 6. Type 1 diabetes mellitus. 7. Volume overload. Improved with ultrafiltration. 8. Hypertonic hyponatremia secondary to hyperglycemia. Also component of hypervolemia. 9. Metabolic acidosis secondary to hyperglycemia. Improved postdialysis. 10. Corynebacterium bacteremia. Questionable contamination. ID following. 11. Small pericardial effusion. 12. Anemia of chronic kidney disease. Iron replete. Plan: Hemodialysis tomorrow. Follow-up cultures. Decreased dose of colchicine to adjust for renal function. Add Aranesp.
[2024-09-20 11:26] LABS: Glucose,Whole Blood 201 mg/dL (70-110)
[2024-09-20] MEDS: DARBEPOETIN ALFA 40 MCG/0.4 ML SYRINGE SQ SCH (11:59)
--- NOTE | 2024-09-20 12:09 | P.PN ---
Subjective Progress Note Date: 09/20/24 Principal diagnosis: Reason for follow-up is abnormal echo with echodense mass to the catheter tip Patient is a 34-year-old female with a past medical history difficult for diabetes mellitus reflux hypertension seizure disorder history of end-stage renal disease on dialysis through the right subclavian permacatheter with an echocardiogram showing echodense mass to the tip of the dialysis catheter and a question of infection. On today's evaluation that is 09/20/2024,the patient remains to be afebrile, patient is on room air not requiring supplemental oxygen patient complaining of some chest pain and shortness of breath but no cough.Patient denies having any nausea or vomiting, no abdominal pain and no diarrhea has been reported. No new lab has been obtained today blood culture from 09/16/2024 as well as 09/17/2024 has been negative Objective - Vital Signs Vital signs: Vital Signs Temp 97.1 F L 09/20/24 04:00 Pulse 87 09/20/24 00:00 Resp 16 09/20/24 04:00 BP 140/81 09/20/24 06:18 Pulse Ox 98 09/20/24 09:20 FiO2 40 09/04/24 02:07 Intake & Output 09/19/24 09/20/24 09/20/24 18:59 06:59 18:59 Intake Total 400 356 Output Total 7400 Balance -7000 356 Weight 63.6 kg 63.1 kg Intake: Oral 356 Hemodialysis 400 Output: Hemodialysis 3900 Hemodialysis Net Amount 3500 Other: Voiding Method Toilet # Voids 0 # Bowel Movements 0 - Exam GENERAL DESCRIPTION: Middle-age female lying in bed in no distress RESPIRATORY SYSTEM: Unlabored breathing , decreased breath sounds at bases HEART: S1 S2 regular rate and rhythm , ABDOMEN: Soft , no tenderness EXTREMITIES: No edema feet - Labs CBC & Chem 7: 09/18/24 06:46 09/18/24 06:46 Labs: Abnormal Lab Results - Last 24 Hours (Table) 09/19/24 09/19/24 09/19/24 Range/Units 11:00 16:56 20:22 POC Glucose (mg/dL) 288 H 276 H (70-110) mg/dL % Saturation 45.99 H (12.00-45.00) Ferritin 520.0 H (10.0-291.0) ng/mL 09/20/24 09/20/24 Range/Units 06:07 11:20 POC Glucose (mg/dL) 298 H 201 H (70-110) mg/dL % Saturation (12.00-45.00) Ferritin (10.0-291.0) ng/mL Microbiology - Last 24 Hours (Table) 09/17/24 14:42 Blood Culture - Preliminary Blood 09/16/24 10:59 Blood Culture - Preliminary Blood 09/15/24 12:53 Blood Culture Gram Stain - Final Blood Blood Culture - Final Corynebacterium species Assessment and Plan (1) Abnormal echocardiogram Current Visit: Yes Status: Acute Code(s): R93.1 - ABNORMAL FINDINGS ON DX IMAGING OF HEART AND COR CIRC SNOMED Code(s): 985776857 (2) Positive blood culture Current Visit: Yes Status: Acute Code(s): R78.81 - BACTEREMIA SNOMED Code(s): 214969191 Plan: 1patient with abnormal echo with evidence of hypodense lesion at the tip of the dialysis catheter in the right atrium questionably hematoma as the patient do report issues with the dialysis and clotting clinically not behaving as infection/infected vegetation as the patient did not have any fever or any elevated white count in this hospital stay but not entirely excluded 2-blood culture has been obtained peripherally also from the dialysis catheter which are so far negative 3-patient did have a normal CRP there will make infectious etiology to be less likely, 4-patient did have a positive blood culture with corynebacterium species more likely contamination with repeat blood culture from 09/16/2024 as well as 09/17/2024 has been negative, will monitor closely off antibiotics Dictation was produced using [employer] dictation software. please excuse any grammatical, word or spelling errors. Time with Patient: Less than 30
--- NOTE | 2024-09-20 12:27 | P.PN ---
Subjective Progress Note Date: 09/20/24 09/18/2024, patient is being seen for a follow-up. Patient is undergoing hemodialysis today. Blood pressure remains quite elevated and nephrology is on the case. The patient on a combination of antihypertensive medication and the patient is currently on Catapres 0.3 mg p.o. 3 times daily, hydralazine 150 mg p.o. 4 times daily, Norvasc 10 mg p.o. daily, Imdur 60 mg p.o. daily, labetalol 500 mg p.o. twice daily. Most recent blood pressure was measured to be at 169/90. She remains on room air oxygen. The white cell count at 6.1 with a hemoglobin 9.3 and a platelet count of 240. Sodium levels at 128, potassium of is at 5.6, BUN is 46 and a creatinine is at 6.42. The patient has no significant respiratory distress at this point in time. No shortness of breath. Chronic recurrent chest pain is still present. On 09/19/2024, I am seeing the patient for a follow-up. The patient is undergoing another session of hemodialysis. Yesterday, the patient underwent an ultrafiltration of 3 L and today the goal is 3.9 L. Blood pressure remains elevated despite a combination of antihypertensive medication and the patient continues to have episodes of chest pain. EKG was done and it shows a normal sinus rhythm. No significant ST segment abnormalities. Most recent blood pressure documented on this patient is 182/104 and nephrology is adjusting the blood pressure medication. As mentioned, the patient is currently on clonidine 0.3 mg p.o. 3 times daily, Norvasc 10 mg p.o. daily, hydralazine 150 mg p.o. 4 times daily, Mg 120 mg p.o. daily, Trandate 500 mg p.o. twice daily. Rest of the medications remain unchanged. The patient is currently on 2 L of oxygen by nasal cannula with a pulse ox of 99 to 100%. No new labs are available from today. No headaches. No altered mentation. On 09/20/2024, the patient is being seen for a follow-up. BP is under better control as the patient had some adjustment in her blood pressure medication with increase the dose of Imdur and hydralazine. She underwent hemodialysis yesterday. She is on room air oxygen. Pulse ox 98%. Most recent BP is 140/81. No altered mentation. She is lethargic and weak and anxious complaining of chronic fatigue and tiredness. Objective - Vital Signs Vital signs: Vital Signs Temp 97.1 F L 09/20/24 04:00 Pulse 87 09/20/24 00:00 Resp 16 09/20/24 04:00 BP 140/81 09/20/24 06:18 Pulse Ox 98 09/20/24 09:20 FiO2 40 09/04/24 02:07 Intake & Output 09/19/24 09/20/24 09/20/24 18:59 06:59 18:59 Intake Total 400 356 Output Total 7400 Balance -7000 356 Weight 63.6 kg 63.1 kg Intake: Oral 356 Hemodialysis 400 Output: Hemodialysis 3900 Hemodialysis Net Amount 3500 Other: Voiding Method Toilet # Voids 0 # Bowel Movements 0 - Exam GENERAL EXAM: Alert, 34-year-old female, resting in bed, on room air, no acute distress. HEAD: Normocephalic. EYES: Normal reaction of pupils, equal size. NOSE: Clear with pink turbinates. Recent epistaxis. THROAT: No erythema or exudates. NECK: No masses, no JVD. CHEST: No chest wall deformity. Dialysis catheter on the right LUNGS: Fine crackles at the bases. No rhonchi no wheezes. CVS: S1 and S2 normal with no audible murmur, regular rhythm. ABDOMEN: No hepatosplenomegaly, normal bowel sounds, no guarding or rigidity. SKIN: No rashes CENTRAL NERVOUS SYSTEM: No focal deficits, tone is normal in all 4 extremities. EXTREMITIES: There is no peripheral edema. No clubbing, no cyanosis. Peripheral pulses are intact. - Labs CBC & Chem 7: 09/18/24 06:46 09/18/24 06:46 Labs: Abnormal Lab Results - Last 24 Hours (Table) 09/19/24 09/19/24 09/19/24 Range/Units 11:00 11: 16:56 POC Glucose (mg/dL) 138 H 288 H (70-110) mg/dL % Saturation 45.99 H (12.00-45.00) Ferritin 520.0 H (10.0-291.0) ng/mL 09/19/24 09/20/24 Range/Units 20:22 06:07 POC Glucose (mg/dL) 276 H 298 H (70-110) mg/dL % Saturation (12.00-45.00) Ferritin (10.0-291.0) ng/mL Microbiology - Last 24 Hours (Table) 09/17/24 14:42 Blood Culture - Preliminary Blood 09/16/24 10:59 Blood Culture - Preliminary Blood 09/15/24 12:53 Blood Culture Gram Stain - Final Blood Blood Culture - Final Corynebacterium species Assessment and Plan Plan: Acute hypoxemic respiratory failure secondary to an acute episode of pulmonary edema and fluid volume overload, recovered and the patient is currently on room air oxygen Hypertensive with a better controlled blood pressure, currently covered with multiple antihypertensive medications. End-stage renal disease requiring hemodialysis 4 times per week, undergoing hemodialysis this morning Hyperkalemia secondary to above Diabetes mellitus, insulin-dependent Anemia of chronic disease History of CVA/TIA History of optic neuritis Hypothyroidism History of depression Abnormal echocardiogram, patient with abnormal echo with evidence of hypodense lesion at the tip of the dialysis catheter in the right atrium questionably hematoma as the patient do report issues with the dialysis and clotting clinically not behaving as infection/infected vegetation as the patient did not have any fever or any elevated white count in this hospital stay but not entirely excluded Plan: Monitor the blood pressure and adjust antihypertensive medications accordingly, BP is under better control Continue hemodialysis with a goal of 3.9 L of ultrafiltration from yesterday Stable and on room air Nephrology is on the case
--- NOTE | 2024-09-20 15:03 | P.PN ---
Subjective Progress Note Date: 09/20/24 This is a very pleasant 34-year-old female patient with a past medical history significant for end-stage renal disease on dialysis through hemodialysis catheter as well as hypertension and dyslipidemia and diabetes and multiple comorbid conditions who was admitted to the hospital with attention emergency which has improved significantly. We consulted to see the patient because of chest discomfort which we felt is pleuritic and noncardiac. The chest discomfort is mostly when she take a deep breath. D-dimer came in to be unremarkable with the echo showed preserved LV systolic function with a small pericardial effusion and also showed an echodensity attached to the hemodialysis catheter in the right atrium. Infectious disease specialist was consulted to see the patient. Troponin came to be mildly elevated but flat across the board and the EKG did not show any ischemic ST or T wave abnormalities and the chest discomfort is clearly not anginal/noncardiac. September 16, 2024 The patient was seen and evaluated this morning which she is overall stable with improvement in the blood pressure which she continues to have intermittent episodes of chest discomfort with the same nature as described above. She is euvolemic on examination. Infectious disease specialist consulted to see the patient. Blood culture was drawn. We added colchicine to the current medical regimen for presumably pericarditis component. The examination is remarkable for regular rhythm with a soft systolic murmur and clear breathing sounds bilaterally and no edema was noted in the lower extremities September 17, 2024 The patient was seen and evaluated this morning which she is feeling overall better. The chest discomfort is better. The pressure still elevated and consistent with stage II hypertension. I am going to increase the dose of isosorbide mononitrate and beside that she is on maximum dose of dihydropyridine calcium channel stephanie and maximum dose of beta-stephanie and also she is on high-dose clonidine and also she is on high-dose of hydralazine. Blood culture was sent and still pending as of now. Infectious disease on the case. If there is no concern regarding any infection and the patient continues to have chest discomfort I believe she need to undergo a heart catheterization. Examination is remarkable for regular rhythm with a soft systolic murmur and clear breathing sounds bilaterally and no edema was noted in the lower extremities 09/18 Patient is seen and examined. She is undergoing hemodialysis today. She is complaining of some chest pain and there are noted EKG changes with Q waves in the inferior leads lateral ST-T wave changes. Blood pressure is 176/102, pulse ox 99% on room air, heart rate 92. Repeat blood work reveals hemoglobin 9.3. Sodium 128, potassium 5.6, BUN 46 creatinine 6.42. Blood pressures remain quite elevated. Imdur was increased yesterday. Examination is remarkable for regular rhythm with a soft systolic murmur and clear breathing sounds bilaterally and no edema was noted in the lower extremities September 19, 2024 Patient is seen and examined at bedside this a.m. She continues to complain of substernal chest pressure. Systolic pressure in 180s. Chest pain does get better with sublingual nitroglycerin. Continues to get hemodialysis with 3.5 L of ultrafiltrate removal today. Patient appears depressed and is crying when evaluating her. 09/20/2024 Patient is seen and examined. Blood pressure readings have been intermittently better controlled with 135/89 up to 183/92. Heart rate is in the 80s, pulse ox 97% on 2 L nasal cannula. Examination is remarkable for regular rhythm with a soft systolic murmur and clear breathing sounds bilaterally and no edema was noted in the lower extremities Assessment Hypertension emergency which has improved Evidence of myocardial injury with no evidence of ischemia Small pericardial effusion End-stage renal disease on dialysis Possible infected hemodialysis catheter Multiple comorbid conditions Plan Patient is currently on the following blood pressure medications: Amlodipine 10 mg daily, clonidine 0.3 mg 3 times daily, hydralazine 150 mg 4 times daily, labetalol 500 mg twice daily Continue aspirin 81 mg daily, atorvastatin 40 mg at bedtime, Continue Imdur to 120 mg daily Patient's chest pain is mostly related to poorly controlled blood pressure. On max therapy, she continues to have poorly controlled blood pressure. Would request primary team to evaluate and see if patient has any concerns of dialysis catheter tip infection. Nurse practitioner note has been reviewed, I agree with documented findings and plan of care. Patient was seen and examined. Objective - Vital Signs Vital signs: Vital Signs Temp 97.8 F 09/20/24 11:59 Pulse 88 09/20/24 11:59 Resp 16 09/20/24 11:59 BP 157/79 09/20/24 11:59 Pulse Ox 98 09/20/24 11:59 FiO2 40 09/04/24 02:07 Intake & Output 09/19/24 09/20/24 09/20/24 18:59 06:59 18:59 Intake Total 400 596 Output Total 7400 Balance -7000 596 Weight 63.6 kg 63.1 kg Intake: Oral 596 Hemodialysis 400 Output: Hemodialysis 3900 Hemodialysis Net Amount 3500 Other: Voiding Method Toilet # Voids 0 1 # Bowel Movements 0 - Labs CBC & Chem 7: 09/18/24 06:46 09/18/24 06:46 Labs: Abnormal Lab Results - Last 24 Hours (Table) 09/19/24 09/19/24 09/19/24 Range/Units 11:00 16:56 20:22 POC Glucose (mg/dL) 288 H 276 H (70-110) mg/dL % Saturation 45.99 H (12.00-45.00) Ferritin 520.0 H (10.0-291.0) ng/mL 09/20/24 09/20/24 Range/Units 06:07 11:20 POC Glucose (mg/dL) 298 H 201 H (70-110) mg/dL % Saturation (12.00-45.00) Ferritin (10.0-291.0) ng/mL Microbiology - Last 24 Hours (Table) 09/17/24 14:42 Blood Culture - Preliminary Blood 09/16/24 10:59 Blood Culture - Preliminary Blood 09/15/24 12:53 Blood Culture Gram Stain - Final Blood Blood Culture - Final Corynebacterium species
[2024-09-20 16:29] LABS: Glucose,Whole Blood 255 mg/dL (70-110)
[2024-09-20 20:03] LABS: Glucose,Whole Blood 286 mg/dL (70-110)
[2024-09-21] MEDS: ACETAMINOPHEN TAB 325 MG TAB PO PRN (01:33)
[2024-09-21 05:41] LABS: Glucose,Whole Blood 248 mg/dL (70-110)
[2024-09-21] MEDS ORDERED: NITROGLYCERIN SL TABS 0.4 MG TAB SUBLINGUAL PRN (09:04)
[2024-09-21] MEDS: LIDOCAINE 4% PATCH TOPICAL SCH (09:19)
--- NOTE | 2024-09-21 09:32 | P.PN ---
Subjective Patient is seen in follow-up for end-stage renal disease. Complaining of chest pain this morning. Vital signs are stable. General: No acute distress. HEENT: Head exam is unremarkable. On room air. LUNGS: No audible rhonchi or wheezes. HEART: Rate and Rhythm are regular. ABDOMEN: Nontender. EXTREMITITES: No edema. Objective - Vital Signs Vital signs: Vital Signs Temp 97.4 F L 09/21/24 08:37 Pulse 93 09/21/24 08:38 Resp 18 09/21/24 08:37 BP 170/89 09/21/24 08:37 Pulse Ox 98 09/21/24 08:37 FiO2 40 09/04/24 02:07 Intake & Output 09/20/24 09/21/24 09/21/24 18:59 06:59 18:59 Intake Total 596 462 Balance 596 462 Weight 66.7 kg Intake: Oral 596 462 Other: Voiding Method Toilet Toilet # Voids 1 1 # Bowel Movements 0 - Labs CBC & Chem 7: 09/18/24 06:46 09/18/24 06:46 Labs: Abnormal Lab Results - Last 24 Hours (Table) 09/20/24 09/20/24 09/20/24 Range/Units 11:20 16:27 20:02 POC Glucose (mg/dL) 201 H 255 H 286 H (70-110) mg/dL 09/21/24 Range/Units 05:40 POC Glucose (mg/dL) 248 H (70-110) mg/dL Microbiology - Last 24 Hours (Table) 09/17/24 14:42 Blood Culture - Preliminary Blood Assessment and Plan Plan: Assessment: 1. End-stage renal disease maintained on hemodialysis on Wednesday. 2. Acute hypoxic respiratory failure. Currently on room air. 3. Hypertensive emergency. Improved. 4. Chronic kidney disease mineral bone disease maintained on Renvela. 5. Hyperkalemia secondary to chronic kidney disease and hyperglycemia. Entresto also noted on medication list. 6. Type 1 diabetes mellitus. 7. Volume overload. Improved with ultrafiltration. 8. Hypertonic hyponatremia secondary to hyperglycemia. Also component of hypervolemia. 9. Metabolic acidosis secondary to hyperglycemia. Improved postdialysis. 10. Corynebacterium bacteremia. Questionable contamination. ID following. 11. Small pericardial effusion. 12. Anemia of chronic kidney disease. Iron replete. On Aranesp. Plan: Hemodialysis today. Follow-up cultures. Decreased dose of colchicine to adjust for renal function. Nitroglycerin being given for chest pain. Will also obtain EKG and notify cardiology.
--- NOTE | 2024-09-21 10:06 | P.PN ---
Subjective Progress Note Date: 09/19/24 Patient is a 34-year-old female with a past medical history of hypertension, diabetes type 1, ESRD on hemodialysis/4 times a week., Seizure disorder and hypothyroidism and also history of gastroparesis and chronic pain, anxiety/depression. Patient presents to ER with complaints of shortness of breath. Patient states that she had last hemodialysis on Wednesday. She has been doing well until 11 PM and started having shortness of breath and rapidly worsening. EMS was called and patient was transported to ER. Patient was placed on BiPAP and wrote. She was also having chest tightness along with horacio rtness of breath. Denied any worsening swelling in the legs. No fever no chills. No nausea vomiting or diarrhea. No headache or dizziness. Chest x-ray showed findings consistent with CHF exacerbation/fluid overload state. EKG showed sinus tachycardia with heart rate 105 Laboratory test showed WBC 9.2 hemoglobin 10.7 and platelets 374 Sodium 134 potassium 6.2 with slight hemolysis Chloride 98 bicarb is 25 BUN 74 and creatinine 7.58 and blood sugar 266. Lactic acid 1.0 AST 147 ALT 196 and alk phos 138, troponin 0.012 and proBNP 58,200. Patient's blood pressure was 171/120 pulse 111 respiration 24 on admission. Patient was started on nitro drip in the ER. 09/05/2024 Patient is in the MICU. Currently requiring 3 L oxygen via nasal cannula. No complaints of chest pain. Complains of shortness of breath. Also complains of nausea. No close of vomiting. Patient is also being continued on Cleviprex drip. Nitroglycerin drip has been discontinued. Patient is currently undergoing hemodialysis and planning for 4Lultrafiltration. Blood pressure is also poorly controlled with SBP in 140s. Laboratory showed WBC 12.4 hemoglobin 10.5 and platelets 341 sodium 129 potassium 5.9 chloride 87 bicarb is 17 BUN 39 creatinine 5.1 blood sugar 611 AST 68 ALT is 139 alk phos 168. Critical care team and nephrology is on board. 09/06/2024 Patient is here in the MICU. Still complains of pain. Shortness of breath is much improved. Blood pressure is also better. Nitroglycerin drip has been discontinued. Patient is currently on room air. Underwent hemodialysis yesterday. Nephrology and critical care team on board. Patient is being transferred to medical floor today. Blood sugar is elevated to 308 this morning. Started on insulin regimen and titrate dose as needed. Other laborato ry data showed A1c 8.3 phosphorus 6.9 sodium 131 and potassium 4.7 and chloride 94. 09/07/2024 Patient is in the medical floor. Resting in the bed. Awake alert and oriented x 3. Patient is getting hemodialysis with 4 L goal of ultrafiltration. Patient is currently room air. No complaints of chest pain or worsening shortness of breath. Patient still complaining of pain and nausea. Improved with medications. Blood pressure is still elevated today afternoon. Nephrology and pulmonary is on board. Laboratory data showed WBC 9 point hemoglobin 9.1 and platelets 308 sodium 126 potassium 4.4 chloride 191 bicarb is 23 BUN 13 and creatinine was 6.19 and blood sugar 228 and phosphorus 7.2. 09/08/2024 Patient is in the medical floor. Awake alert and oriented x 3. Still complains of nausea and generalized pain. Patient is also very oxygen via nasal cannula. Saturating at 90% on room air. Blood pressure is still elevated. Patient is scheduled for hemodialysis tomorrow. Laboratory data showed sodium 134 potassium 4.1 chloride 92 bicarb is 26.8 BUN 17.6 and creatinine 4.6 and blood sugar 142 and calcium 9.2. Patient has been afebrile. No headache or dizziness. No cough or sputum production. Nephrology and pulmonary is on board. 09/11/2021 Patient is lying in the bed. Awake alert and oriented. Complains of pain and shortness of breath. Blood pressure was high this morning with SBP's 170s. Patient is currently undergoing hemodialysis and blood pressure went down to 112/74. No complaints of dizziness or lightheadedness. Nosebleed has improved. Laboratory data showed sodium 131 potassium 4.9 chloride 89, bicarb is 31 BUN 31 and creatinine 8.37 and blood sugar 85. Calcium 9.2. Current medications reviewed. 09/16/2024 Patient is lying in the bed. Awake alert and oriented x 3. Still complains of chest discomfort. Blood pressure is elevated. Patient was also started on colchicine. Blood pressure medications are being titrated. Other laboratory data reviewed. Continued on pain medications. 09/17/2024 Patient is lying in the bed. Awake alert and orient x 3. Still having some chest discomfort. Otherwise patient feels weak and tired. No complaints of nausea or vomiting. Tolerating oral diet. Undergoing hemodialysis as per elsy juan. Continue blood pressure medications and pain medications. Blood sugars are fluctuating. Continue to titrate insulin dose. 09/18/2024 Patient is undergoing hemodialysis today. Awake alert and oriented x 3. Requiring 2 L oxygen via nasal cannula. Saturating at 100%. Still complains of some chest pain. Blood pressure is in 170s. Patient was started on Imdur and also on colchicine. Patient has been afebrile. No cough or sputum production. Laboratory showed WBC 6.9 hemoglobin 9.3 and platelets 240 sodium 128 potassium 5.6 chloride 95 bicarb is 21 BUN 46 and creatinine 6.42 and blood sugar is 196. Calcium 9.3. Nephrology and cardiology is on board. 09/19/2024 Patient is currently lying in the bed. Awake alert and oriented x 3. Undergoing hemodialysis. No complaints of chest pain or shortness of breath. Blood sugar is 138 this morning. Nephrology and cardiology on board. Blood pressure medications are being titrated. Objective - Vital Signs Vital signs: Vital Signs Temp 97.4 F L 09/21/24 08:37 Pulse 93 09/21/24 08:38 Resp 18 09/21/24 08:37 BP 170/89 09/21/24 08:37 Pulse Ox 98 09/21/24 08:37 FiO2 40 09/04/24 02:07 Intake & Output 09/20/24 09/21/24 09/21/24 18:59 06:59 18:59 Intake Total 596 462 Balance 596 462 Weight 66.7 kg Intake: Oral 596 462 Other: Voiding Method Toilet Toilet # Voids 1 1 # Bowel Movements 0 - Exam PHYSICAL EXAMINATION: Patient is lying in the bed , no acute distress, awake alert and oriented.. HEENT: Normocephalic. Neck is supple. Pupils reactive. Nostrils clear. Oral cavity is moist. Neck reveals no JVD, carotid bruits, or thyromegaly. CHEST EXAMINATION: Trachea is central. Symmetrical expansion. Bibasilar diminished sounds. No wheezing or rhonchi.. CARDIAC: Normal S1, S2 with no gallops. No murmurs ABDOMEN: Soft. Bowel sounds normal. No organomegaly. No abdominal bruits. Extremities: Bilateral lower extremity trace edema. No clubbing or cyanosis Neurologically awake, alert, oriented x3 with well-coordinated movements. No focal deficits noted Skin: No rash or skin lesions. Psychiatric: Coperative. Nonsuicidal Musculoskeletal: No joint swelling or deformity. - Labs CBC & Chem 7: 09/18/24 06:46 09/18/24 06:46 Labs: Abnormal Lab Results - Last 24 Hours (Table) 09/20/24 09/20/24 09/20/24 Range/Units 11:20 16:27 20:02 POC Glucose (mg/dL) 201 H 255 H 286 H (70-110) mg/dL 09/21/24 Range/Units 05:40 POC Glucose (mg/dL) 248 H (70-110) mg/dL Microbiology - Last 24 Hours (Table) 09/17/24 14:42 Blood Culture - Preliminary Blood Assessment and Plan Assessment: Hypertensive emergency requiring nitroglycerin drip on admission. Currently off drip. Acute hypoxic respiratory failure due to pulmonary edema/volume overload. Requiring BiPAP on admission. Transitioned on to room air. Elevated liver enzymes on admission. Elevated troponin level due to myocardial injury. Chest pain likely pleuritic ESRD on hemodialysis Wednesday and Wednesday Hyperkalemia secondary to CKD Hypertension uncontrolled Diabetes type 1 History of CVA/TIA History of optic neuritis Hypothyroidism Anxiety/depression DVT prophylaxis with heparin subcu Plan: Patient is getting hemodialysis per schedule. Patient is undergoing hemodialysis today. Patient was started on colchicine. Imdur dose increased. Started back on home blood pressure medications. Continue to titrate doses. Blood pressure is elevated before dialysis.. Hemodialysis as per schedule. 4 times per week. Continue with Levemir 10 units twice daily and insulin sliding scale. Patient did have hypoglycemic episodes. Started on NovoLog 3 units 3 times daily AC. Blood sugar is fluctuating. Symptomatic management for nausea and continued pain management. Cardiology and nephrology is on board. Continue with oxygen supplementation and follow-up closely. GI and DVT prophylaxis. Time with Patient: Greater than 30
--- NOTE | 2024-09-21 10:11 | P.PN ---
Subjective Progress Note Date: 09/20/24 Patient is a 34-year-old female with a past medical history of hypertension, diabetes type 1, ESRD on hemodialysis/4 times a week., Seizure disorder and hypothyroidism and also history of gastroparesis and chronic pain, anxiety/depression. Patient presents to ER with complaints of shortness of breath. Patient states that she had last hemodialysis on Wednesday. She has been doing well until 11 PM and started having shortness of breath and rapidly worsening. EMS was called and patient was transported to ER. Patient was placed on BiPAP and wrote. She was also having chest tightness along with horacio rtness of breath. Denied any worsening swelling in the legs. No fever no chills. No nausea vomiting or diarrhea. No headache or dizziness. Chest x-ray showed findings consistent with CHF exacerbation/fluid overload state. EKG showed sinus tachycardia with heart rate 105 Laboratory test showed WBC 9.2 hemoglobin 10.7 and platelets 374 Sodium 134 potassium 6.2 with slight hemolysis Chloride 98 bicarb is 25 BUN 74 and creatinine 7.58 and blood sugar 266. Lactic acid 1.0 AST 147 ALT 196 and alk phos 138, troponin 0.012 and proBNP 58,200. Patient's blood pressure was 171/120 pulse 111 respiration 24 on admission. Patient was started on nitro drip in the ER. 09/05/2024 Patient is in the MICU. Currently requiring 3 L oxygen via nasal cannula. No complaints of chest pain. Complains of shortness of breath. Also complains of nausea. No close of vomiting. Patient is also being continued on Cleviprex drip. Nitroglycerin drip has been discontinued. Patient is currently undergoing hemodialysis and planning for 4Lultrafiltration. Blood pressure is also poorly controlled with SBP in 140s. Laboratory showed WBC 12.4 hemoglobin 10.5 and platelets 341 sodium 129 potassium 5.9 chloride 87 bicarb is 17 BUN 39 creatinine 5.1 blood sugar 611 AST 68 ALT is 139 alk phos 168. Critical care team and nephrology is on board. 09/06/2024 Patient is here in the MICU. Still complains of pain. Shortness of breath is much improved. Blood pressure is also better. Nitroglycerin drip has been discontinued. Patient is currently on room air. Underwent hemodialysis yesterday. Nephrology and critical care team on board. Patient is being transferred to medical floor today. Blood sugar is elevated to 308 this morning. Started on insulin regimen and titrate dose as needed. Other laborato ry data showed A1c 8.3 phosphorus 6.9 sodium 131 and potassium 4.7 and chloride 94. 09/07/2024 Patient is in the medical floor. Resting in the bed. Awake alert and oriented x 3. Patient is getting hemodialysis with 4 L goal of ultrafiltration. Patient is currently room air. No complaints of chest pain or worsening shortness of breath. Patient still complaining of pain and nausea. Improved with medications. Blood pressure is still elevated today afternoon. Nephrology and pulmonary is on board. Laboratory data showed WBC 9 point hemoglobin 9.1 and platelets 308 sodium 126 potassium 4.4 chloride 191 bicarb is 23 BUN 13 and creatinine was 6.19 and blood sugar 228 and phosphorus 7.2. 09/08/2024 Patient is in the medical floor. Awake alert and oriented x 3. Still complains of nausea and generalized pain. Patient is also very oxygen via nasal cannula. Saturating at 90% on room air. Blood pressure is still elevated. Patient is scheduled for hemodialysis tomorrow. Laboratory data showed sodium 134 potassium 4.1 chloride 92 bicarb is 26.8 BUN 17.6 and creatinine 4.6 and blood sugar 142 and calcium 9.2. Patient has been afebrile. No headache or dizziness. No cough or sputum production. Nephrology and pulmonary is on board. 09/11/2021 Patient is lying in the bed. Awake alert and oriented. Complains of pain and shortness of breath. Blood pressure was high this morning with SBP's 170s. Patient is currently undergoing hemodialysis and blood pressure went down to 112/74. No complaints of dizziness or lightheadedness. Nosebleed has improved. Laboratory data showed sodium 131 potassium 4.9 chloride 89, bicarb is 31 BUN 31 and creatinine 8.37 and blood sugar 85. Calcium 9.2. Current medications reviewed. 09/16/2024 Patient is lying in the bed. Awake alert and oriented x 3. Still complains of chest discomfort. Blood pressure is elevated. Patient was also started on colchicine. Blood pressure medications are being titrated. Other laboratory data reviewed. Continued on pain medications. 09/17/2024 Patient is lying in the bed. Awake alert and orient x 3. Still having some chest discomfort. Otherwise patient feels weak and tired. No complaints of nausea or vomiting. Tolerating oral diet. Undergoing hemodialysis as per elsy juan. Continue blood pressure medications and pain medications. Blood sugars are fluctuating. Continue to titrate insulin dose. 09/18/2024 Patient is undergoing hemodialysis today. Awake alert and oriented x 3. Requiring 2 L oxygen via nasal cannula. Saturating at 100%. Still complains of some chest pain. Blood pressure is in 170s. Patient was started on Imdur and also on colchicine. Patient has been afebrile. No cough or sputum production. Laboratory showed WBC 6.9 hemoglobin 9.3 and platelets 240 sodium 128 potassium 5.6 chloride 95 bicarb is 21 BUN 46 and creatinine 6.42 and blood sugar is 196. Calcium 9.3. Nephrology and cardiology is on board. 09/19/2024 Patient is currently lying in the bed. Awake alert and oriented x 3. Undergoing hemodialysis. No complaints of chest pain or shortness of breath. Blood sugar is 138 this morning. Nephrology and cardiology on board. Blood pressure medications are being titrated. 09/20/2024 Patient is lying in the bed. Chest pressure is better. No complaints of shortness of breath. Blood pressure is still fluctuating. Currently on 2 L oxygen via nasal cannula. Patient has been febrile. Nausea did improve as well. No cough or sputum production. Cardiology and nephrology is on board. Current medications reviewed. Objective - Vital Signs Vital signs: Vital Signs Temp 97.4 F L 09/21/24 08:37 Pulse 93 09/21/24 08:38 Resp 18 09/21/24 08:37 BP 170/89 09/21/24 08:37 Pulse Ox 98 09/21/24 08:37 FiO2 40 09/04/24 02:07 Intake & Output 09/20/24 09/21/24 09/21/24 18:59 06:59 18:59 Intake Total 596 462 Balance 596 462 Weight 66.7 kg Intake: Oral 596 462 Other: Voiding Method Toilet Toilet # Voids 1 1 # Bowel Movements 0 - Exam PHYSICAL EXAMINATION: Patient is lying in the bed , no acute distress, awake alert and oriented.. HEENT: Normocephalic. Neck is supple. Pupils reactive. Nostrils clear. Oral cavity is moist. Neck reveals no JVD, carotid bruits, or thyromegaly. CHEST EXAMINATION: Trachea is central. Symmetrical expansion. Nonlabored breathing no wheezing or rhonchi.. CARDIAC: Normal S1, S2 with no gallops. No murmurs ABDOMEN: Soft. Bowel sounds normal. No organomegaly. No abdominal bruits. Extremities: Bilateral lower extremity trace edema. No clubbing or cyanosis Neurologically awake, alert, oriented x3 with well-coordinated movements. No focal deficits noted Skin: No rash or skin lesions. Psychiatric: Coperative. Nonsuicidal Musculoskeletal: No joint swelling or deformity. - Labs CBC & Chem 7: 09/18/24 06:46 09/18/24 06:46 Labs: Abnormal Lab Results - Last 24 Hours (Table) 09/20/24 09/20/24 09/20/24 Range/Units 11:20 16:27 20:02 POC Glucose (mg/dL) 201 H 255 H 286 H (70-110) mg/dL 09/21/24 Range/Units 05:40 POC Glucose (mg/dL) 248 H (70-110) mg/dL Microbiology - Last 24 Hours (Table) 09/17/24 14:42 Blood Culture - Preliminary Blood Assessment and Plan Assessment: Hypertensive emergency requiring nitroglycerin drip on admission. Currently off drip. Acute hypoxic respiratory failure due to pulmonary edema/volume overload. Requiring BiPAP on admission. Transitioned on to room air. Elevated liver enzymes on admission. Elevated troponin level due to myocardial injury. Chest pain likely pleuritic ESRD on hemodialysis Wednesday and Wednesday Hyperkalemia secondary to CKD Hypertension uncontrolled Diabetes type 1 History of CVA/TIA History of optic neuritis Hypothyroidism Anxiety/depression DVT prophylaxis with heparin subcu Plan: Patient is getting hemodialysis per schedule. Patient is underwent hemodialysis yesterday. Patient was started on colchicine. Imdur dose increased. Started back on home blood pressure medications. Continue to titrate doses. Blood pressure is elevated before dialysis.. Hemodialysis as per schedule. 4 times per week. Continue with Levemir 10 units twice daily and insulin sliding scale. Patient did have hypoglycemic episodes. Started on NovoLog 3 units 3 times daily AC. Blood sugar is fluctuating. Symptomatic management for nausea and continued pain management. Cardiology and nephrology is on board. Continue with oxygen supplementation and follow-up closely. GI and DVT prophylaxis. Time with Patient: Greater than 30
[2024-09-21 11:44] LABS: Glucose,Whole Blood 124 mg/dL (70-110)
[2024-09-21] MEDS: INSULIN ASPART (NovoLOG) 100 UNIT/ML VIAL SQ SCH (12:38)
--- NOTE | 2024-09-21 14:04 | P.PN ---
Subjective Progress Note Date: 09/21/24 This is a very pleasant 34-year-old female patient with a past medical history significant for end-stage renal disease on dialysis through hemodialysis catheter as well as hypertension and dyslipidemia and diabetes and multiple comorbid conditions who was admitted to the hospital with attention emergency which has improved significantly. We consulted to see the patient because of chest discomfort which we felt is pleuritic and noncardiac. The chest discomfort is mostly when she take a deep breath. D-dimer came in to be unremarkable with the echo showed preserved LV systolic function with a small pericardial effusion and also showed an echodensity attached to the hemodialysis catheter in the right atrium. Infectious disease specialist was consulted to see the patient. Troponin came to be mildly elevated but flat across the board and the EKG did not show any ischemic ST or T wave abnormalities and the chest discomfort is clearly not anginal/noncardiac. September 16, 2024 The patient was seen and evaluated this morning which she is overall stable with improvement in the blood pressure which she continues to have intermittent episodes of chest discomfort with the same nature as described above. She is euvolemic on examination. Infectious disease specialist consulted to see the patient. Blood culture was drawn. We added colchicine to the current medical regimen for presumably pericarditis component. The examination is remarkable for regular rhythm with a soft systolic murmur and clear breathing sounds bilaterally and no edema was noted in the lower extremities September 17, 2024 The patient was seen and evaluated this morning which she is feeling overall better. The chest discomfort is better. The pressure still elevated and consistent with stage II hypertension. I am going to increase the dose of isosorbide mononitrate and beside that she is on maximum dose of dihydropyridine calcium channel stephanie and maximum dose of beta-stephanie and also she is on high-dose clonidine and also she is on high-dose of hydralazine. Blood culture was sent and still pending as of now. Infectious disease on the case. If there is no concern regarding any infection and the patient continues to have chest discomfort I believe she need to undergo a heart catheterization. Examination is remarkable for regular rhythm with a soft systolic murmur and clear breathing sounds bilaterally and no edema was noted in the lower extremities 09/18 Patient is seen and examined. She is undergoing hemodialysis today. She is complaining of some chest pain and there are noted EKG changes with Q waves in the inferior leads lateral ST-T wave changes. Blood pressure is 176/102, pulse ox 99% on room air, heart rate 92. Repeat blood work reveals hemoglobin 9.3. Sodium 128, potassium 5.6, BUN 46 creatinine 6.42. Blood pressures remain quite elevated. Imdur was increased yesterday. Examination is remarkable for regular rhythm with a soft systolic murmur and clear breathing sounds bilaterally and no edema was noted in the lower extremities September 19, 2024 Patient is seen and examined at bedside this a.m. She continues to complain of substernal chest pressure. Systolic pressure in 180s. Chest pain does get better with sublingual nitroglycerin. Continues to get hemodialysis with 3.5 L of ultrafiltrate removal today. Patient appears depressed and is crying when evaluating her. 09/20/2024 Patient is seen and examined. Blood pressure readings have been intermittently better controlled with 135/89 up to 183/92. Heart rate is in the 80s, pulse ox 97% on 2 L nasal cannula. Examination is remarkable for regular rhythm with a soft systolic murmur and clear breathing sounds bilaterally and no edema was noted in the lower extremities 09/21 Patient is seen and examined. She is undergoing hemodialysis today. She continues to have chest pain and ordered for nitroglycerin but she is currently undergoing hemodialysis. Blood pressure 181/111, heart rate 86, pulse ox 98% on room air. Assessment Hypertension emergency Evidence of myocardial injury with no evidence of ischemia Small pericardial effusion End-stage renal disease on dialysis Bacteremia ruled out by ID Multiple comorbid conditions Plan Patient is currently on the following blood pressure medications: Amlodipine 10 mg daily, clonidine 0.3 mg 3 times daily, hydralazine 150 mg 4 times daily, labetalol 500 mg twice daily Continue aspirin 81 mg daily, atorvastatin 40 mg at bedtime, Continue Imdur to 120 mg daily Patient's chest pain is mostly related to poorly controlled blood pressure but unable to rule out CAD. Patient will be scheduled for cardiac catheterization tomorrow with Dr. Avila. N.p.o. after midnight. Apply lidocaine patch daily to chest wall. Would request primary team to evaluate and see if patient has any concerns of dialysis catheter tip infection. Nurse practitioner note has been reviewed, I agree with documented findings and plan of care. Patient was seen and examined. Objective - Vital Signs Vital signs: Vital Signs Temp 97.4 F L 09/21/24 08:37 Pulse 93 09/21/24 08:38 Resp 18 09/21/24 08:37 BP 170/89 09/21/24 08:37 Pulse Ox 98 09/21/24 08:37 FiO2 40 09/04/24 02:07 Intake & Output 09/20/24 09/21/24 09/21/24 18:59 06:59 18:59 Intake Total 596 462 Balance 596 462 Weight 66.7 kg Intake: Oral 596 462 Other: Voiding Method Toilet Toilet # Voids 1 1 # Bowel Movements 0 - Labs CBC & Chem 7: 09/18/24 06:46 09/18/24 06:46 Labs: Abnormal Lab Results - Last 24 Hours (Table) 09/20/24 09/20/24 09/20/24 Range/Units 11:20 16:27 20:02 POC Glucose (mg/dL) 201 H 255 H 286 H (70-110) mg/dL 09/21/24 Range/Units 05:40 POC Glucose (mg/dL) 248 H (70-110) mg/dL Microbiology - Last 24 Hours (Table) 09/17/24 14:42 Blood Culture - Preliminary Blood
--- NOTE | 2024-09-21 14:52 | P.PN ---
Subjective Progress Note Date: 09/21/24 09/18/2024, patient is being seen for a follow-up. Patient is undergoing hemodialysis today. Blood pressure remains quite elevated and nephrology is on the case. The patient on a combination of antihypertensive medication and the patient is currently on Catapres 0.3 mg p.o. 3 times daily, hydralazine 150 mg p.o. 4 times daily, Norvasc 10 mg p.o. daily, Imdur 60 mg p.o. daily, labetalol 500 mg p.o. twice daily. Most recent blood pressure was measured to be at 169/90. She remains on room air oxygen. The white cell count at 6.1 with a hemoglobin 9.3 and a platelet count of 240. Sodium levels at 128, potassium of is at 5.6, BUN is 46 and a creatinine is at 6.42. The patient has no significant respiratory distress at this point in time. No shortness of breath. Chronic recurrent chest pain is still present. On 09/19/2024, I am seeing the patient for a follow-up. The patient is undergoing another session of hemodialysis. Yesterday, the patient underwent an ultrafiltration of 3 L and today the goal is 3.9 L. Blood pressure remains elevated despite a combination of antihypertensive medication and the patient continues to have episodes of chest pain. EKG was done and it shows a normal sinus rhythm. No significant ST segment abnormalities. Most recent blood pressure documented on this patient is 182/104 and nephrology is adjusting the blood pressure medication. As mentioned, the patient is currently on clonidine 0.3 mg p.o. 3 times daily, Norvasc 10 mg p.o. daily, hydralazine 150 mg p.o. 4 times daily, Mg 120 mg p.o. daily, Trandate 500 mg p.o. twice daily. Rest of the medications remain unchanged. The patient is currently on 2 L of oxygen by nasal cannula with a pulse ox of 99 to 100%. No new labs are available from today. No headaches. No altered mentation. On 09/20/2024, the patient is being seen for a follow-up. BP is under better control as the patient had some adjustment in her blood pressure medication with increase the dose of Imdur and hydralazine. She underwent hemodialysis yesterday. She is on room air oxygen. Pulse ox 98%. Most recent BP is 140/81. No altered mentation. She is lethargic and weak and anxious complaining of chronic fatigue and tiredness.] On 09/21/2024, the patient is being seen for a follow-up. The patient is undergoing hemodialysis with a goal of 4 L of ultrafiltration. Blood pressure slightly elevated compared to yesterday. She is currently on room air oxygen with a pulse ox of 98%. Most recent blood pressure 159/85 at 170/89. She remains on the same antihypertensive medication regimen. The patient usually r esponds to hemodialysis with subsequent drop in her blood pressure. She is scheduled to undergo a cardiac catheterization tomorrow in view of her ongoing episodes of chest pain. She will be kept n.p.o. after midnight. Her chest wall is probably skeletal and lidocaine patch was applied to her chest. Objective - Vital Signs Vital signs: Vital Signs Temp 97.4 F L 09/21/24 08:37 Pulse 93 09/21/24 08:38 Resp 18 09/21/24 08:37 BP 170/89 09/21/24 08:37 Pulse Ox 98 09/21/24 08:37 FiO2 40 09/04/24 02:07 Intake & Output 09/20/24 09/21/24 09/21/24 18:59 06:59 18:59 Intake Total 596 462 Balance 596 462 Weight 66.7 kg Intake: Oral 596 462 Other: Voiding Method Toilet Toilet # Voids 1 1 # Bowel Movements 0 - Exam GENERAL EXAM: Alert, 34-year-old female, resting in bed, on room air, no acute distress. HEAD: Normocephalic. EYES: Normal reaction of pupils, equal size. NOSE: Clear with pink turbinates. Recent epistaxis. THROAT: No erythema or exudates. NECK: No masses, no JVD. CHEST: No chest wall deformity. Dialysis catheter on the right LUNGS: Fine crackles at the bases. No rhonchi no wheezes. CVS: S1 and S2 normal with no audible murmur, regular rhythm. ABDOMEN: No hepatosplenomegaly, normal bowel sounds, no guarding or rigidity. SKIN: No rashes CENTRAL NERVOUS SYSTEM: No focal deficits, tone is normal in all 4 extremities. EXTREMITIES: There is no peripheral edema. No clubbing, no cyanosis. Peripheral pulses are intact. - Labs CBC & Chem 7: 09/18/24 06:46 09/18/24 06:46 Labs: Abnormal Lab Results - Last 24 Hours (Table) 09/20/24 09/20/24 09/20/24 Range/Units 11:20 16:27 20:02 POC Glucose (mg/dL) 201 H 255 H 286 H (70-110) mg/dL 09/21/24 Range/Units 05:40 POC Glucose (mg/dL) 248 H (70-110) mg/dL Microbiology - Last 24 Hours (Table) 09/17/24 14:42 Blood Culture - Preliminary Blood Assessment and Plan Plan: Acute hypoxemic respiratory failure secondary to an acute episode of pulmonary edema and fluid volume overload, recovered and the patient is currently on room air oxygen Hypertensive with a better controlled blood pressure, currently covered with multiple antihypertensive medications. End-stage renal disease requiring hemodialysis 4 times per week, undergoing hemodialysis this morning Episodic chest pain, scheduled to undergo cardiac catheterization tomorrow Hyperkalemia secondary to above Diabetes mellitus, insulin-dependent Anemia of chronic disease History of CVA/TIA History of optic neuritis Hypothyroidism History of depression Abnormal echocardiogram, patient with abnormal echo with evidence of hypodense lesion at the tip of the dialysis catheter in the right atrium questionably he matoma as the patient do report issues with the dialysis and clotting clinically not behaving as infection/infected vegetation as the patient did not have any fever or any elevated white count in this hospital stay but not entirely excluded Plan: Hemodialysis today with a goal of 4 L of ultrafiltration Monitor the blood pressure and adjust antihypertensive medications accordingly, BP is being monitored Keep n.p.o. after midnight and the patient is undergoing cardiac catheterization in a.m. Stable and on room air Nephrology is on the case Health Sciences Manager on the case.
[2024-09-21 15:30] LABS: Anisocytosis Slight; Basophils # (A) 0.1 k/uL (0-0.2); Basophils % (A) 1 %; Eosinophils % (A) 11 %; HCT 28.3 % (34.0-46.0); HGB 9.4 gm/dL (11.4-16.0); Lymphocytes # (A) 0.9 k/uL (1.0-4.8); Lymphocytes % (A) 10 %; MCH 31.3 pg (25.0-35.0); MCHC 33.1 g/dL (31.0-37.0); MCV 94.4 fL (80.0-100.0); Mean Platelet Volume 7.8; Monocytes # (A) 0.8 k/uL (0-1.0); Monocytes % (A) 9 %; Neutrophils % (A) 68 %; Platelet Count 191 k/uL (150-450); RDW 16.2 % (11.5-15.5); WBC 8.9 k/uL (3.8-10.6)
[2024-09-21 15:48] LABS: African American GFR (CKD) 20 (>60 ml/min/1.73 sqM); Anion Gap 7 mmol/L; Blood Urea Nitrogen 19 mg/dL (7-17); Calcium 8.9 mg/dL (8.4-10.2); Carbon Dioxide 31 mmol/L (22-30); Chloride 92 mmol/L (98-107); Glucose 154 mg/dL (74-99); Non-African American GFR(CKD) 18 (>60 ml/min/1.73 sqM); Potassium 4.6 mmol/L (3.5-5.1); Sodium 130 mmol/L (137-145)
--- NOTE | 2024-09-21 16:00 | P.PN ---
Subjective Progress Note Date: 09/21/24 Principal diagnosis: Reason for follow-up is abnormal echo with echodense mass to the catheter tip Patient is a 34-year-old female with a past medical history difficult for diabetes mellitus reflux hypertension seizure disorder history of end-stage renal disease on dialysis through the right subclavian permacatheter with an echocardiogram showing echodense mass to the tip of the dialysis catheter and a question of infection. On today's evaluation that is 09/21/2024, the patient continues to be afebrile, the patient is on room air and breathing comfortably, the Pt has been complaining of pain all over patient has been asking for more pain medications and nausea no vomiting has been reported. Patient white count is 8.8, creatinine 3.30 blood culture repeat from 09/16/2024 as well as 09/17/2024 has been negative Objective - Vital Signs Vital signs: Vital Signs Temp 97.4 F L 09/21/24 08:37 Pulse 86 09/21/24 11:21 Resp 18 09/21/24 08:37 BP 181/111 09/21/24 11:21 Pulse Ox 98 09/21/24 08:37 FiO2 40 09/04/24 02:07 Intake & Output 09/20/24 09/21/24 09/21/24 18:59 06:59 18:59 Intake Total 596 462 Balance 596 462 Weight 66.7 kg Intake: Oral 596 462 Other: Voiding Method Toilet Toilet # Voids 1 1 # Bowel Movements 0 - Exam GENERAL DESCRIPTION: Middle-age female lying in bed in no distress RESPIRATORY SYSTEM: Unlabored breathing , decreased breath sounds at bases HEART: S1 S2 regular rate and rhythm , ABDOMEN: Soft , no tenderness EXTREMITIES: No edema feet - Labs CBC & Chem 7: 09/21/24 15:12 09/21/24 15:12 Labs: Abnormal Lab Results - Last 24 Hours (Table) 09/20/24 09/20/24 09/21/24 Range/Units 16:27 20:02 05:40 POC Glucose (mg/dL) 255 H 286 H 248 H (70-110) mg/dL 09/21/24 Range/Units 11:42 POC Glucose (mg/dL) 124 H (70-110) mg/dL Microbiology - Last 24 Hours (Table) 09/17/24 14:42 Blood Culture - Preliminary Blood Assessment and Plan (1) Abnormal echocardiogram Current Visit: Yes Status: Acute Code(s): R93.1 - ABNORMAL FINDINGS ON DX IMAGING OF HEART AND COR CIRC SNOMED Code(s): 600713449 (2) Positive blood culture Current Visit: Yes Status: Acute Code(s): R78.81 - BACTEREMIA SNOMED Code(s): 858187046 Plan: 1patient with abnormal echo with evidence of hypodense lesion at the tip of the dialysis catheter in the right atrium questionably hematoma as the patient do report issues with the dialysis and clotting clinically not behaving as infection/infected vegetation as the patient did not have any fever or any elevated white count in this hospital stay but not entirely excluded 2-blood culture has been obtained peripherally also from the dialysis catheter which are so far negative 3-patient did have a normal CRP there will make infectious etiology to be less likely, 4-patient remains to be febrile did have a normal white count, did have a positive blood culture with corynebacterium species more likely contamination with repeat blood culture from 09/16/2024 as well as 09/17/2024 has been negative, no need for antibiotic therapy at this point Dictation was produced using [employer] dictation software. please excuse any grammatical, word or spelling errors. Time with Patient: Less than 30
[2024-09-21 16:18] LABS: Glucose,Whole Blood 191 mg/dL (70-110)
[2024-09-21 19:51] LABS: Glucose,Whole Blood 239 mg/dL (70-110)
[2024-09-21] MEDS: ALPRAZolam 0.25 MG TAB PO PRN (20:56)
[2024-09-22 06:24] LABS: Glucose,Whole Blood 221 mg/dL (70-110)
[2024-09-22] MEDS: ATORVASTATIN 80 MG TAB PO ONE (06:33)
[2024-09-22] MEDS: ASPIRIN 325 MG TAB PO ONE (06:33)
--- NOTE | 2024-09-22 09:54 | P.PN ---
Subjective Patient is seen in follow-up for end-stage renal disease. No chest pain or shortness of breath. Scheduled for cardiac cath today. Vital signs are stable. General: No acute distress. HEENT: Head exam is unremarkable. On room air. LUNGS: No audible rhonchi or wheezes. HEART: Rate and Rhythm are regular. ABDOMEN: Nontender. EXTREMITITES: No edema. Objective - Vital Signs Vital signs: Vital Signs Temp 98.4 F 09/22/24 08:46 Pulse 79 09/22/24 09:09 Resp 17 09/22/24 08:47 BP 167/88 09/22/24 08:46 Pulse Ox 94 L 09/22/24 08:57 FiO2 40 09/04/24 02:07 Intake & Output 09/21/24 09/22/24 09/22/24 18:59 06:59 18:59 Intake Total 5546 10 Output Total 4400 Balance 1146 10 Weight 64.8 kg Intake: IV 10 Invasive Line 6 10 Oral 1146 Hemodialysis 4400 Output: Hemodialysis 400 Hemodialysis Net Amount 4000 Other: Voiding Method Toilet Toilet Toilet # Voids 1 - Labs CBC & Chem 7: 09/21/24 15:12 09/21/24 15:12 Labs: Abnormal Lab Results - Last 24 Hours (Table) 09/21/24 09/21/24 09/21/24 Range/Units 11:42 15:12 15:12 RBC 3.00 L (3.80-5.40) m/uL Hgb 9.4 L (11.4-16.0) gm/dL Hct 28.3 L (34.0-46.0) % RDW 16.2 H (11.5-15.5) % Lymphocytes # 0.9 L (1.0-4.8) k/uL Eosinophils # 1.0 H (0-0.7) k/uL Sodium 130 L (137-145) mmol/L Chloride 92 L (98-107) mmol/L Carbon Dioxide 31 H (22-30) mmol/L BUN 19 H (7-17) mg/dL Creatinine 3.30 H (0.52-1.04) mg/dL Glucose 154 H (74-99) mg/dL POC Glucose (mg/dL) 124 H (70-110) mg/dL 11/06/0709/21/24 09/22/24 Range/Units 16:16 19:47 06:23 RBC (3.80-5.40) m/uL Hgb (11.4-16.0) gm/dL Hct (34.0-46.0) % RDW (11.5-15.5) % Lymphocytes # (1.0-4.8) k/uL Eosinophils # (0-0.7) k/uL Sodium (137-145) mmol/L Chloride (98-107) mmol/L Carbon Dioxide (22-30) mmol/L BUN (7-17) mg/dL Creatinine (0.52-1.04) mg/dL Glucose (74-99) mg/dL POC Glucose (mg/dL) 191 H 239 H 221 H (70-110) mg/dL Microbiology - Last 24 Hours (Table) 09/16/24 10:59 Blood Culture - Final Blood Assessment and Plan Plan: Assessment: 1. End-stage renal disease maintained on hemodialysis on Wednesday. 2. Acute hypoxic respiratory failure. Currently on room air. 3. Hypertensive emergency. Improved. 4. Chronic kidney disease mineral bone disease maintained on Renvela. 5. Hyperkalemia secondary to chronic kidney disease and hyperglycemia. Entresto also noted on medication list. 6. Type 1 diabetes mellitus. 7. Volume overload. Improved with ultrafiltration. 8. Hypertonic hyponatremia secondary to hyperglycemia. Also component of hypervolemia. 9. Metabolic acidosis secondary to hyperglycemia. Improved postdialysis. 10. Corynebacterium bacteremia. Questionable contamination. ID following. Repeat cultures negative so far. 11. Small pericardial effusion. 12. Anemia of chronic kidney disease. Iron replete. On Aranesp. Plan: Hemodialysis tomorrow. Follow-up cultures. Decreased dose of colchicine to adjust for renal function. Cardiac catheterization today. No need for IV fluids before and after catheterization.
[2024-09-22 11:39] LABS: Glucose,Whole Blood 275 mg/dL (70-110)
[2024-09-22] MEDS: IV FLUID CONTINUATION 300 ML IV ONE (13:10)
[2024-09-22] MEDS: MIDAZOLAM 2 MG/2 ML VIAL IVP ONE (13:10)
[2024-09-22] MEDS: fentaNYL (PF) 50 MCG/ML 2 ML AMP IVP ONE (13:10)
--- NOTE | 2024-09-22 13:11 | P.PN ---
Subjective Progress Note Date: 09/22/24 Principal diagnosis: Reason for follow-up is abnormal echo with echodense mass to the catheter tip Patient is a 34-year-old female with a past medical history difficult for diabetes mellitus reflux hypertension seizure disorder history of end-stage renal disease on dialysis through the right subclavian permacatheter with an echocardiogram showing echodense mass to the tip of the dialysis catheter and a question of infection. On today's evaluation that is 09/22/2024, Patient is afebrile patient is currently on 2 L nasal cannula oxygen and is breathing comfortably no vomiting diarrhea any changes reported. No new lab has been repeated today blood culture repeat has been negative Objective - Vital Signs Vital signs: Vital Signs Temp 97.9 F 09/22/24 11:00 Pulse 93 09/22/24 11:00 Resp 19 09/22/24 11:38 BP 152/82 09/22/24 11:00 Pulse Ox 99 09/22/24 11:38 FiO2 40 09/04/24 02:07 Intake & Output 09/21/24 09/22/24 09/22/24 18:59 06:59 18:59 Intake Total 5546 10 Output Total 4400 Balance 1146 10 Weight 64.8 kg Intake: IV 10 Invasive Line 6 10 Oral 1146 Hemodialysis 4400 Output: Hemodialysis 400 Hemodialysis Net Amount 4000 Other: Voiding Method Toilet Toilet Toilet # Voids 1 - Exam GENERAL DESCRIPTION: Middle-age female lying in bed in no distress RESPIRATORY SYSTEM: Unlabored breathing , decreased breath sounds at bases HEART: S1 S2 regular rate and rhythm , ABDOMEN: Soft , no tenderness EXTREMITIES: No edema feet - Labs CBC & Chem 7: 09/21/24 15:12 09/21/24 15:12 Labs: Abnormal Lab Results - Last 24 Hours (Table) 09/21/24 09/21/24 09/21/24 Range/Units 15:12 15:12 16:16 RBC 3.00 L (3.80-5.40) m/uL Hgb 9.4 L (11.4-16.0) gm/dL Hct 28.3 L (34.0-46.0) % RDW 16.2 H (11.5-15.5) % Lymphocytes # 0.9 L (1.0-4.8) k/uL Eosinophils # 1.0 H (0-0.7) k/uL Sodium 130 L (137-145) mmol/L Chloride 92 L (98-107) mmol/L Carbon Dioxide 31 H (22-30) mmol/L BUN 19 H (7-17) mg/dL Creatinine 3.30 H (0.52-1.04) mg/dL Glucose 154 H (74-99) mg/dL POC Glucose (mg/dL) 191 H (70-110) mg/dL 09/21/24 09/22/24 09/22/24 Range/Units 19:47 06:23 11:38 RBC (3.80-5.40) m/uL Hgb (11.4-16.0) gm/dL Hct (34.0-46.0) % RDW (11.5-15.5) % Lymphocytes # (1.0-4.8) k/uL Eosinophils # (0-0.7) k/uL Sodium (137-145) mmol/L Chloride (98-107) mmol/L Carbon Dioxide (22-30) mmol/L BUN (7-17) mg/dL Creatinine (0.52-1.04) mg/dL Glucose (74-99) mg/dL POC Glucose (mg/dL) 239 H 221 H 275 H (70-110) mg/dL Microbiology - Last 24 Hours (Table) 09/16/24 10:59 Blood Culture - Final Blood Assessment and Plan (1) Abnormal echocardiogram Current Visit: Yes Status: Acute Code(s): R93.1 - ABNORMAL FINDINGS ON DX IMAGING OF HEART AND COR CIRC SNOMED Code(s): 719846334 (2) Positive blood culture Current Visit: Yes Status: Acute Code(s): R78.81 - BACTEREMIA SNOMED Code(s): 412618626 Plan: 1patient with abnormal echo with evidence of hypodense lesion at the tip of the dialysis catheter in the right atrium questionably hematoma as the patient do report issues with the dialysis and clotting clinically not behaving as infection/infected vegetation as the patient did not have any fever or any elevated white count in this hospital stay but not entirely excluded 2-blood culture has been obtained peripherally also from the dialysis catheter which are so far negative 3-patient did have a normal CRP there will make infectious etiology to be less likely, 4-patient remains to be febrile did have a normal white count, did have a positive blood culture with corynebacterium species more likely contamination with repeat blood culture from 09/16/2024 as well as 09/17/2024 has been negative, no need for antibiotic therapy at this point, ID will sign off please call back if any question regarding her infectious disease care Dictation was produced using [employer] dictation software. please excuse any grammatical, word or spelling errors. Time with Patient: Less than 30
[2024-09-22] MEDS: LIDOCAINE 1% INJ 10MG/ML (20 ML MDV) SQ ONE (13:12)
[2024-09-22] MEDS: VERAPAMIL SYRINGE (5 MG/10 ML) INTRAARTER ONE (13:15)
[2024-09-22] MEDS: HEPARIN SODIUM 1,000 UN/ML (10ML VL) IVP ONE (13:17)
[2024-09-22] MEDS: IOPAMIDOL-370 100ML BTL INJ ONE (13:25)
[2024-09-22] MEDS: HEPARIN SODIUM,PORCINE 10,000 UNIT in SODIUM CHLORIDE 0.9% 1,000 ML IRRIGATION PRN (13:31)
[2024-09-22] MEDS: HEPARIN SODIUM,PORCINE (1 ML) 2,500 UNIT in SODIUM CHLORIDE 0.9% 250 ML IRRIGATION PRN (13:31)
--- NOTE | 2024-09-22 13:39 | P.CARDCATH ---
Description of Procedure: PROCEDURES PERFORMED: Left heart catheterization, bilateral coronary angiography, ultrasound guided arterial access INDICATION: chest pain concerning for unstable angina CONSENT:I have discussed the risks, benefits and alternative therapies for the above-mentioned procedure and for both sedation/analgesia as well as necessary blood product administration, if indicated, as they pertain to this patient. The patient has indicated understanding and acceptance of the risks and procedures discussed. PROCEDURE: After the risks, benefits and alternatives of the above mentioned procedure explained in detail with the patient, informed consent was obtained. Patient was taken to the catheterization lab and prepped and draped in usual fashion. Ultrasound guidance was used to assess for arterial access. 1% lidocaine was used to anesthetize the right radial artery. A 6-Armenian sheath was placed in the right radial artery using modified Seldinger technique and ultrasound guidance. Left coronary angiography was performed with a 5-Armenian JL 3.5 catheter and right coronary angiography was performed with a 5-Armenian FR5 catheter in various views. A 5-Armenian FR5 catheter was inserted into the left ventricle and pressure measurements were obtained. The right radial sheath was removed and a TR band was placed with hemostasis achieved. The patient tolerated the procedure well. Patient was transported back to the post catheterization holding area in stable condition. Conscious Sedation: Patient was monitored under the direct supervision of myself for conscious sedation using Versed and fentanyl for a total duration of 9 minutes HEMODYNAMICS: aorta: 148/72 LV: 145/15, LVEDP 24 SELECTIVE CORONARY ARTERIOGRAPHY: LEFT MAIN: The left main is a large caliber vessel which bifurcates into the LAD and circumflex. There is no significant stenosis. LEFT ANTERIOR DESCENDING CORONARY ARTERY: LAD is a large caliber vessel which wraps around to the apex. There is no significant stenosis. LEFT CIRCUMFLEX CORONARY ARTERY: Left circumflex is a moderate caliber vessel without significant stenosis. RIGHT CORONARY ARTERY: The right coronary artery is a large caliber vessel which gives off a PDA and PLV branch and is the dominant vessel. There is no significant stenosis. FINAL IMPRESSION: 1. Normal coronary arteries as described above. 2. Elevated left sided filling pressures PLAN: 1. Aggressive risk factor modification per most recent ACC/AHA guidelines. 2. Follow-up in the office in 1-2 weeks.
--- NOTE | 2024-09-22 15:19 | P.PN ---
Subjective Progress Note Date: 09/22/24 09/18/2024, patient is being seen for a follow-up. Patient is undergoing hemodialysis today. Blood pressure remains quite elevated and nephrology is on the case. The patient on a combination of antihypertensive medication and the patient is currently on Catapres 0.3 mg p.o. 3 times daily, hydralazine 150 mg p.o. 4 times daily, Norvasc 10 mg p.o. daily, Imdur 60 mg p.o. daily, labetalol 500 mg p.o. twice daily. Most recent blood pressure was measured to be at 169/90. She remains on room air oxygen. The white cell count at 6.1 with a hemoglobin 9.3 and a platelet count of 240. Sodium levels at 128, potassium of is at 5.6, BUN is 46 and a creatinine is at 6.42. The patient has no significant respiratory distress at this point in time. No shortness of breath. Chronic recurrent chest pain is still present. On 09/19/2024, I am seeing the patient for a follow-up. The patient is undergoing another session of hemodialysis. Yesterday, the patient underwent an ultrafiltration of 3 L and today the goal is 3.9 L. Blood pressure remains elevated despite a combination of antihypertensive medication and the patient continues to have episodes of chest pain. EKG was done and it shows a normal sinus rhythm. No significant ST segment abnormalities. Most recent blood pressure documented on this patient is 182/104 and nephrology is adjusting the blood pressure medication. As mentioned, the patient is currently on clonidine 0.3 mg p.o. 3 times daily, Norvasc 10 mg p.o. daily, hydralazine 150 mg p.o. 4 times daily, Mg 120 mg p.o. daily, Trandate 500 mg p.o. twice daily. Rest of the medications remain unchanged. The patient is currently on 2 L of oxygen by nasal cannula with a pulse ox of 99 to 100%. No new labs are available from today. No headaches. No altered mentation. On 09/20/2024, the patient is being seen for a follow-up. BP is under better control as the patient had some adjustment in her blood pressure medication with increase the dose of Imdur and hydralazine. She underwent hemodialysis yesterday. She is on room air oxygen. Pulse ox 98%. Most recent BP is 140/81. No altered mentation. She is lethargic and weak and anxious complaining of chronic fatigue and tiredness.] On 09/21/2024, the patient is being seen for a follow-up. The patient is undergoing hemodialysis with a goal of 4 L of ultrafiltration. Blood pressure slightly elevated compared to yesterday. She is currently on room air oxygen with a pulse ox of 98%. Most recent blood pressure 159/85 at 170/89. She remains on the same antihypertensive medication regimen. The patient usually r esponds to hemodialysis with subsequent drop in her blood pressure. She is scheduled to undergo a cardiac catheterization tomorrow in view of her ongoing episodes of chest pain. She will be kept n.p.o. after midnight. Her chest wall is probably skeletal and lidocaine patch was applied to her chest. On 09/22/2024, the patient is still awaiting her cardiac catheterization in regards to her ongoing episodic chest pain. This seems to be noncardiac pain. Nevertheless, based on her comorbidities, cardiac catheterization was recommended. The patient otherwise is doing well. BP is under better control. Antihypertensive medications are still unchanged and the patient completed hemodialysis yesterday with a total of 4 L of ultrafiltration. She is awake and alert and communicating. Objective - Vital Signs Vital signs: Vital Signs Temp 97.9 F 09/22/24 11:00 Pulse 93 09/22/24 11:00 Resp 19 09/22/24 11:38 BP 152/82 09/22/24 11:00 Pulse Ox 99 09/22/24 11:38 FiO2 40 09/04/24 02:07 Intake & Output 09/21/24 09/22/24 09/22/24 18:59 06:59 18:59 Intake Total 5546 10 Output Total 4400 Balance 1146 10 Weight 64.8 kg Intake: IV 10 Invasive Line 6 10 Oral 1146 Hemodialysis 4400 Output: Hemodialysis 400 Hemodialysis Net Amount 4000 Other: Voiding Method Toilet Toilet Toilet # Voids 1 - Exam GENERAL EXAM: Alert, 34-year-old female, resting in bed, on room air, no acute distress. HEAD: Normocephalic. EYES: Normal reaction of pupils, equal size. NOSE: Clear with pink turbinates. Recent epistaxis. THROAT: No erythema or exudates. NECK: No masses, no JVD. CHEST: No chest wall deformity. Dialysis catheter on the right LUNGS: Fine crackles at the bases. No rhonchi no wheezes. CVS: S1 and S2 normal with no audible murmur, regular rhythm. ABDOMEN: No hepatosplenomegaly, normal bowel sounds, no guarding or rigidity. SKIN: No rashes CENTRAL NERVOUS SYSTEM: No focal deficits, tone is normal in all 4 extremities. EXTREMITIES: There is no peripheral edema. No clubbing, no cyanosis. Peripheral pulses are intact. - Labs CBC & Chem 7: 09/21/24 15:12 09/21/24 15:12 Labs: Abnormal Lab Results - Last 24 Hours (Table) 09/21/24 09/21/24 09/21/24 Range/Units 15:12 15:12 16:16 RBC 3.00 L (3.80-5.40) m/uL Hgb 9.4 L (11.4-16.0) gm/dL Hct 28.3 L (34.0-46.0) % RDW 16.2 H (11.5-15.5) % Lymphocytes # 0.9 L (1.0-4.8) k/uL Eosinophils # 1.0 H (0-0.7) k/uL Sodium 130 L (137-145) mmol/L Chloride 92 L (98-107) mmol/L Carbon Dioxide 31 H (22-30) mmol/L BUN 19 H (7-17) mg/dL Creatinine 3.30 H (0.52-1.04) mg/dL Glucose 154 H (74-99) mg/dL POC Glucose (mg/dL) 191 H (70-110) mg/dL 09/21/24 09/22/24 09/22/24 Range/Units 19:47 06:23 11:38 RBC (3.80-5.40) m/uL Hgb (11.4-16.0) gm/dL Hct (34.0-46.0) % RDW (11.5-15.5) % Lymphocytes # (1.0-4.8) k/uL Eosinophils # (0-0.7) k/uL Sodium (137-145) mmol/L Chloride (98-107) mmol/L Carbon Dioxide (22-30) mmol/L BUN (7-17) mg/dL Creatinine (0.52-1.04) mg/dL Glucose (74-99) mg/dL POC Glucose (mg/dL) 239 H 221 H 275 H (70-110) mg/dL Microbiology - Last 24 Hours (Table) 09/16/24 10:59 Blood Culture - Final Blood Assessment and Plan Plan: Acute hypoxemic respiratory failure secondary to an acute episode of pulmonary edema and fluid volume overload, recovered and the patient is currently on room air oxygen Episodic chest pain, awaiting cardiac catheterization Hypertensive with a better controlled blood pressure, currently covered with multiple antihypertensive medications. End-stage renal disease requiring hemodialysis 4 times per week, undergoing hemodialysis this morning Hyperkalemia secondary to above Diabetes mellitus, insulin-dependent Anemia of chronic disease History of CVA/TIA History of optic neuritis Hypothyroidism History of depression Abnormal echocardiogram, patient with abnormal echo with evidence of hypodense lesion at the tip of the dialysis catheter in the right atrium questionably hematoma as the patient do report issues with the dialysis and clotting clinically not behaving as infection/infected vegetation as the patient did not have any fever or any elevated white count in this hospital stay but not entirely excluded Plan: Hemodialysis was performed yesterday with a total of 4 L of ultrafiltration Monitor the blood pressure and adjust antihypertensive medications accordingly, BP is being monitored Cardiac catheterization today Stable and on room air Nephrology is on the case Team Guide on the case.
[2024-09-22 16:23] LABS: Glucose,Whole Blood 321 mg/dL (70-110)
[2024-09-22 19:56] LABS: Glucose,Whole Blood 186 mg/dL (70-110)
--- NOTE | 2024-09-23 03:08 | P.PN ---
Subjective Progress Note Date: 09/21/24 Patient is a 34-year-old female with a past medical history of hypertension, diabetes type 1, ESRD on hemodialysis/4 times a week., Seizure disorder and hypothyroidism and also history of gastroparesis and chronic pain, anxiety/depression. Patient presents to ER with complaints of shortness of breath. Patient states that she had last hemodialysis on Wednesday. She has been doing well until 11 PM and started having shortness of breath and rapidly worsening. EMS was called and patient was transported to ER. Patient was placed on BiPAP and wrote. She was also having chest tightness along with horacio rtness of breath. Denied any worsening swelling in the legs. No fever no chills. No nausea vomiting or diarrhea. No headache or dizziness. Chest x-ray showed findings consistent with CHF exacerbation/fluid overload state. EKG showed sinus tachycardia with heart rate 105 Laboratory test showed WBC 9.2 hemoglobin 10.7 and platelets 374 Sodium 134 potassium 6.2 with slight hemolysis Chloride 98 bicarb is 25 BUN 74 and creatinine 7.58 and blood sugar 266. Lactic acid 1.0 AST 147 ALT 196 and alk phos 138, troponin 0.012 and proBNP 58,200. Patient's blood pressure was 171/120 pulse 111 respiration 24 on admission. Patient was started on nitro drip in the ER. 09/05/2024 Patient is in the MICU. Currently requiring 3 L oxygen via nasal cannula. No complaints of chest pain. Complains of shortness of breath. Also complains of nausea. No close of vomiting. Patient is also being continued on Cleviprex drip. Nitroglycerin drip has been discontinued. Patient is currently undergoing hemodialysis and planning for 4Lultrafiltration. Blood pressure is also poorly controlled with SBP in 140s. Laboratory showed WBC 12.4 hemoglobin 10.5 and platelets 341 sodium 129 potassium 5.9 chloride 87 bicarb is 17 BUN 39 creatinine 5.1 blood sugar 611 AST 68 ALT is 139 alk phos 168. Critical care team and nephrology is on board. 09/06/2024 Patient is here in the MICU. Still complains of pain. Shortness of breath is much improved. Blood pressure is also better. Nitroglycerin drip has been discontinued. Patient is currently on room air. Underwent hemodialysis yesterday. Nephrology and critical care team on board. Patient is being transferred to medical floor today. Blood sugar is elevated to 308 this morning. Started on insulin regimen and titrate dose as needed. Other laborato ry data showed A1c 8.3 phosphorus 6.9 sodium 131 and potassium 4.7 and chloride 94. 09/07/2024 Patient is in the medical floor. Resting in the bed. Awake alert and oriented x 3. Patient is getting hemodialysis with 4 L goal of ultrafiltration. Patient is currently room air. No complaints of chest pain or worsening shortness of breath. Patient still complaining of pain and nausea. Improved with medications. Blood pressure is still elevated today afternoon. Nephrology and pulmonary is on board. Laboratory data showed WBC 9 point hemoglobin 9.1 and platelets 308 sodium 126 potassium 4.4 chloride 191 bicarb is 23 BUN 13 and creatinine was 6.19 and blood sugar 228 and phosphorus 7.2. 09/08/2024 Patient is in the medical floor. Awake alert and oriented x 3. Still complains of nausea and generalized pain. Patient is also very oxygen via nasal cannula. Saturating at 90% on room air. Blood pressure is still elevated. Patient is scheduled for hemodialysis tomorrow. Laboratory data showed sodium 134 potassium 4.1 chloride 92 bicarb is 26.8 BUN 17.6 and creatinine 4.6 and blood sugar 142 and calcium 9.2. Patient has been afebrile. No headache or dizziness. No cough or sputum production. Nephrology and pulmonary is on board. 09/11/2021 Patient is lying in the bed. Awake alert and oriented. Complains of pain and shortness of breath. Blood pressure was high this morning with SBP's 170s. Patient is currently undergoing hemodialysis and blood pressure went down to 112/74. No complaints of dizziness or lightheadedness. Nosebleed has improved. Laboratory data showed sodium 131 potassium 4.9 chloride 89, bicarb is 31 BUN 31 and creatinine 8.37 and blood sugar 85. Calcium 9.2. Current medications reviewed. 09/16/2024 Patient is lying in the bed. Awake alert and oriented x 3. Still complains of chest discomfort. Blood pressure is elevated. Patient was also started on colchicine. Blood pressure medications are being titrated. Other laboratory data reviewed. Continued on pain medications. 09/17/2024 Patient is lying in the bed. Awake alert and orient x 3. Still having some chest discomfort. Otherwise patient feels weak and tired. No complaints of nausea or vomiting. Tolerating oral diet. Undergoing hemodialysis as per elsy juan. Continue blood pressure medications and pain medications. Blood sugars are fluctuating. Continue to titrate insulin dose. 09/18/2024 Patient is undergoing hemodialysis today. Awake alert and oriented x 3. Requiring 2 L oxygen via nasal cannula. Saturating at 100%. Still complains of some chest pain. Blood pressure is in 170s. Patient was started on Imdur and also on colchicine. Patient has been afebrile. No cough or sputum production. Laboratory showed WBC 6.9 hemoglobin 9.3 and platelets 240 sodium 128 potassium 5.6 chloride 95 bicarb is 21 BUN 46 and creatinine 6.42 and blood sugar is 196. Calcium 9.3. Nephrology and cardiology is on board. 09/19/2024 Patient is currently lying in the bed. Awake alert and oriented x 3. Undergoing hemodialysis. No complaints of chest pain or shortness of breath. Blood sugar is 138 this morning. Nephrology and cardiology on board. Blood pressure medications are being titrated. 09/20/2024 Patient is lying in the bed. Chest pressure is better. No complaints of shortness of breath. Blood pressure is still fluctuating. Currently on 2 L oxygen via nasal cannula. Patient has been febrile. Nausea did improve as well. No cough or sputum production. Cardiology and nephrology is on board. 09/21/2024 Patient is lying in the bed. Awake alert and oriented. Underwent hemodialysis with 4 L ultrafiltration. Blood pressure is better controlled with SBP in 160s. Currently on room air. Patient is on hypertensive medications and does need titrated. Cardiology is planning for cardiac catheterization due to continued chest pain. Continued on pain management. Also lidocaine was applied. Laboratory data showed WBC 8.9 hemoglobin 9.4 and platelets 191 sodium 130 potassium 4.6 chloride 92, BUN 19 and creatinine 3.3 and blood sugar 154 and calcium 8.9. Current medications reviewed. Objective - Vital Signs Vital signs: Vital Signs Temp 97.4 F L 09/21/24 08:37 Pulse 93 09/21/24 08:38 Resp 18 09/21/24 08:37 BP 170/89 09/21/24 08:37 Pulse Ox 98 09/21/24 08:37 FiO2 40 09/04/24 02:07 Intake & Output 09/20/24 09/21/24 09/21/24 18:59 06:59 18:59 Intake Total 596 462 Balance 596 462 Weight 66.7 kg Intake: Oral 596 462 Other: Voiding Method Toilet Toilet # Voids 1 1 # Bowel Movements 0 - Exam PHYSICAL EXAMINATION: Patient is lying in the bed , no acute distress, awake alert and oriented.. HEENT: Normocephalic. Neck is supple. Pupils reactive. Nostrils clear. Oral cavity is moist. Neck reveals no JVD, carotid bruits, or thyromegaly. CHEST EXAMINATION: Trachea is central. Symmetrical expansion. Nonlabored breathing no wheezing or rhonchi.. CARDIAC: Normal S1, S2 with no gallops. No murmurs ABDOMEN: Soft. Bowel sounds normal. No organomegaly. No abdominal bruits. Extremities: Bilateral lower extremity trace edema. No clubbing or cyanosis Neurologically awake, alert, oriented x3 with well-coordinated movements. No focal deficits noted Skin: No rash or skin lesions. Psychiatric: Coperative. Nonsuicidal Musculoskeletal: No joint swelling or deformity. - Labs CBC & Chem 7: 09/21/24 15:12 09/21/24 15:12 Labs: Abnormal Lab Results - Last 24 Hours (Table) 09/20/24 09/20/24 09/20/24 Range/Units 11:20 16:27 20:02 POC Glucose (mg/dL) 201 H 255 H 286 H (70-110) mg/dL 09/21/24 Range/Units 05:40 POC Glucose (mg/dL) 248 H (70-110) mg/dL Microbiology - Last 24 Hours (Table) 09/17/24 14:42 Blood Culture - Preliminary Blood Assessment and Plan Assessment: Hypertensive emergency requiring nitroglycerin drip on admission. Currently off drip. Acute hypoxic respiratory failure due to pulmonary edema/volume overload. Requiring BiPAP on admission. Transitioned on to room air. Elevated liver enzymes on admission. Elevated troponin level due to myocardial injury. Chest pain likely pleuritic and musculoskeletal. ESRD on hemodialysis Wednesday and Wednesday Hyperkalemia secondary to CKD Hypertension uncontrolled Diabetes type 1 History of CVA/TIA History of optic neuritis Hypothyroidism Anxiety/depression DVT prophylaxis with heparin subcu Plan: Patient is getting hemodialysis per schedule. Underwent hemodialysis today. Patient was started on colchicine. Imdur dose increased. Lidocaine patch. Patient is scheduled for cardiac catheterization tomorrow. Started back on home blood pressure medications. Continue to titrate doses. Blood pressure is elevated before dialysis.. Hemodialysis as per schedule. 4 times per week. Continue with Levemir 10 units twice daily and insulin sliding scale. Patient did have hypoglycemic episodes. Started on NovoLog 3 units 3 times daily AC. Blood sugar is fluctuating. Symptomatic management for nausea and continued pain management. Cardiology and nephrology is on board. Continue with oxygen supplementation and follow-up closely. GI and DVT prophylaxis. Time with Patient: Greater than 30
--- NOTE | 2024-09-23 03:09 | P.PN ---
Subjective Progress Note Date: 09/22/24 Patient is a 34-year-old female with a past medical history of hypertension, diabetes type 1, ESRD on hemodialysis/4 times a week., Seizure disorder and hypothyroidism and also history of gastroparesis and chronic pain, anxiety/depression. Patient presents to ER with complaints of shortness of breath. Patient states that she had last hemodialysis on Wednesday. She has been doing well until 11 PM and started having shortness of breath and rapidly worsening. EMS was called and patient was transported to ER. Patient was placed on BiPAP and wrote. She was also having chest tightness along with horacio rtness of breath. Denied any worsening swelling in the legs. No fever no chills. No nausea vomiting or diarrhea. No headache or dizziness. Chest x-ray showed findings consistent with CHF exacerbation/fluid overload state. EKG showed sinus tachycardia with heart rate 105 Laboratory test showed WBC 9.2 hemoglobin 10.7 and platelets 374 Sodium 134 potassium 6.2 with slight hemolysis Chloride 98 bicarb is 25 BUN 74 and creatinine 7.58 and blood sugar 266. Lactic acid 1.0 AST 147 ALT 196 and alk phos 138, troponin 0.012 and proBNP 58,200. Patient's blood pressure was 171/120 pulse 111 respiration 24 on admission. Patient was started on nitro drip in the ER. 09/05/2024 Patient is in the MICU. Currently requiring 3 L oxygen via nasal cannula. No complaints of chest pain. Complains of shortness of breath. Also complains of nausea. No close of vomiting. Patient is also being continued on Cleviprex drip. Nitroglycerin drip has been discontinued. Patient is currently undergoing hemodialysis and planning for 4Lultrafiltration. Blood pressure is also poorly controlled with SBP in 140s. Laboratory showed WBC 12.4 hemoglobin 10.5 and platelets 341 sodium 129 potassium 5.9 chloride 87 bicarb is 17 BUN 39 creatinine 5.1 blood sugar 611 AST 68 ALT is 139 alk phos 168. Critical care team and nephrology is on board. 09/06/2024 Patient is here in the MICU. Still complains of pain. Shortness of breath is much improved. Blood pressure is also better. Nitroglycerin drip has been discontinued. Patient is currently on room air. Underwent hemodialysis yesterday. Nephrology and critical care team on board. Patient is being transferred to medical floor today. Blood sugar is elevated to 308 this morning. Started on insulin regimen and titrate dose as needed. Other laborato ry data showed A1c 8.3 phosphorus 6.9 sodium 131 and potassium 4.7 and chloride 94. 09/07/2024 Patient is in the medical floor. Resting in the bed. Awake alert and oriented x 3. Patient is getting hemodialysis with 4 L goal of ultrafiltration. Patient is currently room air. No complaints of chest pain or worsening shortness of breath. Patient still complaining of pain and nausea. Improved with medications. Blood pressure is still elevated today afternoon. Nephrology and pulmonary is on board. Laboratory data showed WBC 9 point hemoglobin 9.1 and platelets 308 sodium 126 potassium 4.4 chloride 191 bicarb is 23 BUN 13 and creatinine was 6.19 and blood sugar 228 and phosphorus 7.2. 09/08/2024 Patient is in the medical floor. Awake alert and oriented x 3. Still complains of nausea and generalized pain. Patient is also very oxygen via nasal cannula. Saturating at 90% on room air. Blood pressure is still elevated. Patient is scheduled for hemodialysis tomorrow. Laboratory data showed sodium 134 potassium 4.1 chloride 92 bicarb is 26.8 BUN 17.6 and creatinine 4.6 and blood sugar 142 and calcium 9.2. Patient has been afebrile. No headache or dizziness. No cough or sputum production. Nephrology and pulmonary is on board. 09/11/2021 Patient is lying in the bed. Awake alert and oriented. Complains of pain and shortness of breath. Blood pressure was high this morning with SBP's 170s. Patient is currently undergoing hemodialysis and blood pressure went down to 112/74. No complaints of dizziness or lightheadedness. Nosebleed has improved. Laboratory data showed sodium 131 potassium 4.9 chloride 89, bicarb is 31 BUN 31 and creatinine 8.37 and blood sugar 85. Calcium 9.2. Current medications reviewed. 09/16/2024 Patient is lying in the bed. Awake alert and oriented x 3. Still complains of chest discomfort. Blood pressure is elevated. Patient was also started on colchicine. Blood pressure medications are being titrated. Other laboratory data reviewed. Continued on pain medications. 09/17/2024 Patient is lying in the bed. Awake alert and orient x 3. Still having some chest discomfort. Otherwise patient feels weak and tired. No complaints of nausea or vomiting. Tolerating oral diet. Undergoing hemodialysis as per elsy juan. Continue blood pressure medications and pain medications. Blood sugars are fluctuating. Continue to titrate insulin dose. 09/18/2024 Patient is undergoing hemodialysis today. Awake alert and oriented x 3. Requiring 2 L oxygen via nasal cannula. Saturating at 100%. Still complains of some chest pain. Blood pressure is in 170s. Patient was started on Imdur and also on colchicine. Patient has been afebrile. No cough or sputum production. Laboratory showed WBC 6.9 hemoglobin 9.3 and platelets 240 sodium 128 potassium 5.6 chloride 95 bicarb is 21 BUN 46 and creatinine 6.42 and blood sugar is 196. Calcium 9.3. Nephrology and cardiology is on board. 09/19/2024 Patient is currently lying in the bed. Awake alert and oriented x 3. Undergoing hemodialysis. No complaints of chest pain or shortness of breath. Blood sugar is 138 this morning. Nephrology and cardiology on board. Blood pressure medications are being titrated. 09/20/2024 Patient is lying in the bed. Chest pressure is better. No complaints of shortness of breath. Blood pressure is still fluctuating. Currently on 2 L oxygen via nasal cannula. Patient has been febrile. Nausea did improve as well. No cough or sputum production. Cardiology and nephrology is on board. 09/21/2024 Patient is lying in the bed. Awake alert and oriented. Underwent hemodialysis with 4 L ultrafiltration. Blood pressure is better controlled with SBP in 160s. Currently on room air. Patient is on hypertensive medications and does need titrated. Cardiology is planning for cardiac catheterization due to continued chest pain. Continued on pain management. Also lidocaine was applied. Laboratory data showed WBC 8.9 hemoglobin 9.4 and platelets 191 sodium 130 potassium 4.6 chloride 92, BUN 19 and creatinine 3.3 and blood sugar 154 and calcium 8.9. 09/22/2024 Patient is awake alert and oriented x 3. No complaints of worsening shortness of breath. Still having chest pain. Patient is scheduled for cardiac cathete rization this afternoon. Otherwise blood pressure is in 160s today. Continue to titrate with hypertensive medications. Patient is scheduled for hemodialysis tomorrow. Current medications reviewed. Objective - Vital Signs Vital signs: Vital Signs Temp 98.0 F 09/22/24 16:52 Pulse 92 09/22/24 16:52 Resp 16 09/22/24 16:52 BP 180/92 09/22/24 16:52 Pulse Ox 97 09/22/24 16:52 FiO2 40 09/04/24 02:07 Intake & Output 09/21/24 09/22/24 09/22/24 18:59 06:59 18:59 Intake Total 5546 295 Output Total 4400 Balance 1146 295 Weight 64.8 kg Intake: IV 195 Invasive Line 6 20 Oral 1146 100 Hemodialysis 4400 Output: Hemodialysis 400 Hemodialysis Net Amount 4000 Other: Voiding Method Toilet Toilet Toilet # Voids 1 - Exam PHYSICAL EXAMINATION: Patient is lying in the bed , no acute distress, awake alert and oriented.. HEENT: Normocephalic. Neck is supple. Pupils reactive. Nostrils clear. Oral cavity is moist. Neck reveals no JVD, carotid bruits, or thyromegaly. CHEST EXAMINATION: Trachea is central. Symmetrical expansion. Nonlabored breathing no wheezing or rhonchi.. CARDIAC: Normal S1, S2 with no gallops. No murmurs ABDOMEN: Soft. Bowel sounds normal. No organomegaly. No abdominal bruits. Extremities: Bilateral lower extremity trace edema. No clubbing or cyanosis Neurologically awake, alert, oriented x3 with well-coordinated movements. No focal deficits noted Skin: No rash or skin lesions. Psychiatric: Coperative. Nonsuicidal Musculoskeletal: No joint swelling or deformity. - Labs CBC & Chem 7: 09/21/24 15:12 09/21/24 15:12 Labs: Abnormal Lab Results - Last 24 Hours (Table) 09/21/24 09/22/24 09/22/24 Range/Units 19:47 06:23 11:38 POC Glucose (mg/dL) 239 H 221 H 275 H (70-110) mg/dL 09/22/24 Range/Units 16:22 POC Glucose (mg/dL) 321 H (70-110) mg/dL Microbiology - Last 24 Hours (Table) 09/16/24 10:59 Blood Culture - Final Blood Assessment and Plan Assessment: Hypertensive emergency requiring nitroglycerin drip on admission. Currently off drip. Acute hypoxic respiratory failure due to pulmonary edema/volume overload. Requiring BiPAP on admission. Transitioned on to room air. Elevated liver enzymes on admission. Elevated troponin level due to myocardial injury. Chest pain likely pleuritic and musculoskeletal. ESRD on hemodialysis Wednesday and Wednesday Hyperkalemia secondary to CKD Hypertension uncontrolled Diabetes type 1 History of CVA/TIA History of optic neuritis Hypothyroidism Anxiety/depression DVT prophylaxis with heparin subcu Plan: Patient is getting hemodialysis per schedule. Next hemodialysis tomorrow.. Patient was started on colchicine. Imdur dose increased. Lidocaine patch. Patient is scheduled for cardiac catheterization today. Started back on home blood pressure medications. Continue to titrate doses. Blood pressure is elevated before dialysis.. Hemodialysis as per schedule. 4 times per week. Continue with Levemir 10 units twice daily and insulin sliding scale. Patient did have hypoglycemic episodes. Started on NovoLog 3 units 3 times daily AC. Blood sugar is fluctuating. Symptomatic management for nausea and continued pain management. Cardiology and nephrology is on board. Continue with oxygen supplementation and follow-up closely. GI and DVT prophylaxis. Time with Patient: Greater than 30
[2024-09-23] MEDS: ALPRAZolam 0.5 MG TAB PO PRN (04:23)
[2024-09-23 06:09] LABS: Glucose,Whole Blood 80 mg/dL (70-110)
--- NOTE | 2024-09-23 08:56 | P.PN ---
Subjective Patient is seen in follow-up for end-stage renal disease. No chest pain or shortness of breath. Wants to go home. Cardiac cath showed normal coronaries. Vital signs are stable. General: No acute distress. HEENT: Head exam is unremarkable. On room air. LUNGS: No audible rhonchi or wheezes. HEART: Rate and Rhythm are regular. ABDOMEN: Nontender. EXTREMITITES: No edema. Objective - Vital Signs Vital signs: Vital Signs Temp 97.7 F 09/23/24 04:00 Pulse 88 09/23/24 04:00 Resp 18 09/23/24 04:00 BP 176/93 09/23/24 04:00 Pulse Ox 97 09/23/24 04:00 FiO2 40 09/04/24 02:07 Intake & Output 09/22/24 09/23/24 09/23/24 18:59 06:59 18:59 Intake Total 295 40 Balance 295 40 Weight 66.8 kg Intake: IV 195 40 Invasive Line 6 20 Sodium Chloride 0.9% 1, 40 000 ml @ 20 mls/hr IV . Q24H [facility] Rx#:[id number] Oral 100 Other: Voiding Method Toilet Toilet # Voids 0 - Labs CBC & Chem 7: 09/21/24 15:12 09/21/24 15:12 Labs: Abnormal Lab Results - Last 24 Hours (Table) 09/22/24 09/22/24 09/22/24 Range/Units 11:38 16:22 19:49 POC Glucose (mg/dL) 275 H 321 H 186 H (70-110) mg/dL Microbiology - Last 24 Hours (Table) 09/17/24 14:42 Blood Culture - Final Blood Assessment and Plan Plan: Assessment: 1. End-stage renal disease maintained on hemodialysis on Wednesday. 2. Acute hypoxic respiratory failure. Currently on room air. 3. Hypertensive emergency. Improved. 4. Chronic kidney disease mineral bone disease maintained on Renvela. 5. Hyperkalemia secondary to chronic kidney disease and hyperglycemia. Entresto also noted on medication list. Improved postdialysis. 6. Type 1 diabetes mellitus. 7. Volume overload. Improved with ultrafiltration. 8. Hypertonic hyponatremia secondary to hyperglycemia. Also component of hypervolemia. Improved. 9. Metabolic acidosis secondary to hyperglycemia. Improved postdialysis. 10. Corynebacterium bacteremia. Questionable contamination. ID following. Repeat cultures negative so far. 11. Small pericardial effusion. 12. Anemia of chronic kidney disease. Iron replete. On Aranesp. Plan: Hemodialysis today. Decreased dose of colchicine to adjust for renal function. Cardiac catheterization showed normal coronaries.
[2024-09-23 11:24] LABS: Glucose,Whole Blood 88 mg/dL (70-110)
--- NOTE | 2024-09-23 14:44 | P.PN ---
Subjective Progress Note Date: 09/23/24 09/18/2024, patient is being seen for a follow-up. Patient is undergoing hemodialysis today. Blood pressure remains quite elevated and nephrology is on the case. The patient on a combination of antihypertensive medication and the patient is currently on Catapres 0.3 mg p.o. 3 times daily, hydralazine 150 mg p.o. 4 times daily, Norvasc 10 mg p.o. daily, Imdur 60 mg p.o. daily, labetalol 500 mg p.o. twice daily. Most recent blood pressure was measured to be at 169/90. She remains on room air oxygen. The white cell count at 6.1 with a hemoglobin 9.3 and a platelet count of 240. Sodium levels at 128, potassium of is at 5.6, BUN is 46 and a creatinine is at 6.42. The patient has no significant respiratory distress at this point in time. No shortness of breath. Chronic recurrent chest pain is still present. On 09/19/2024, I am seeing the patient for a follow-up. The patient is undergoing another session of hemodialysis. Yesterday, the patient underwent an ultrafiltration of 3 L and today the goal is 3.9 L. Blood pressure remains elevated despite a combination of antihypertensive medication and the patient continues to have episodes of chest pain. EKG was done and it shows a normal sinus rhythm. No significant ST segment abnormalities. Most recent blood pressure documented on this patient is 182/104 and nephrology is adjusting the blood pressure medication. As mentioned, the patient is currently on clonidine 0.3 mg p.o. 3 times daily, Norvasc 10 mg p.o. daily, hydralazine 150 mg p.o. 4 times daily, Mg 120 mg p.o. daily, Trandate 500 mg p.o. twice daily. Rest of the medications remain unchanged. The patient is currently on 2 L of oxygen by nasal cannula with a pulse ox of 99 to 100%. No new labs are available from today. No headaches. No altered mentation. On 09/20/2024, the patient is being seen for a follow-up. BP is under better control as the patient had some adjustment in her blood pressure medication with increase the dose of Imdur and hydralazine. She underwent hemodialysis yesterday. She is on room air oxygen. Pulse ox 98%. Most recent BP is 140/81. No altered mentation. She is lethargic and weak and anxious complaining of chronic fatigue and tiredness.] On 09/21/2024, the patient is being seen for a follow-up. The patient is undergoing hemodialysis with a goal of 4 L of ultrafiltration. Blood pressure slightly elevated compared to yesterday. She is currently on room air oxygen with a pulse ox of 98%. Most recent blood pressure 159/85 at 170/89. She remains on the same antihypertensive medication regimen. The patient usually r esponds to hemodialysis with subsequent drop in her blood pressure. She is scheduled to undergo a cardiac catheterization tomorrow in view of her ongoing episodes of chest pain. She will be kept n.p.o. after midnight. Her chest wall is probably skeletal and lidocaine patch was applied to her chest. On 09/22/2024, the patient is still awaiting her cardiac catheterization in regards to her ongoing episodic chest pain. This seems to be noncardiac pain. Nevertheless, based on her comorbidities, cardiac catheterization was recommended. The patient otherwise is doing well. BP is under better control. Antihypertensive medications are still unchanged and the patient completed hemodialysis yesterday with a total of 4 L of ultrafiltration. She is awake and alert and communicating. On 09/23/2024, the patient remains hypertensive. Cardiac catheterization was done in the cardiac cath showed normal coronaries. On and off still having some chest pain. No shortness of breath. Blood pressure management as per nephrology. Hemodialysis to be done today. No other complaints otherwise for now. She is on room air oxygen. Objective - Vital Signs Vital signs: Vital Signs Temp 97.7 F 09/23/24 04:00 Pulse 82 09/23/24 12:04 Resp 15 09/23/24 12:04 BP 193/105 09/23/24 12:04 Pulse Ox 95 09/23/24 12:04 FiO2 40 09/04/24 02:07 Intake & Output 09/22/24 09/23/24 09/23/24 18:59 06:59 18:59 Intake Total 295 40 Balance 295 40 Weight 66.8 kg Intake: IV 195 40 Invasive Line 6 20 Sodium Chloride 0.9% 1, 40 000 ml @ 20 mls/hr IV . Q24H [facility] Rx#:[id number] Oral 100 Other: Voiding Method Toilet Toilet # Voids 0 - Exam GENERAL EXAM: Alert, 34-year-old female, resting in bed, on room air, no acute distress. HEAD: Normocephalic. EYES: Normal reaction of pupils, equal size. NOSE: Clear with pink turbinates. Recent epistaxis. THROAT: No erythema or exudates. NECK: No masses, no JVD. CHEST: No chest wall deformity. Dialysis catheter on the right LUNGS: Fine crackles at the bases. No rhonchi no wheezes. CVS: S1 and S2 normal with no audible murmur, regular rhythm. ABDOMEN: No hepatosplenomegaly, normal bowel sounds, no guarding or rigidity. SKIN: No rashes CENTRAL NERVOUS SYSTEM: No focal deficits, tone is normal in all 4 extremities. EXTREMITIES: There is no peripheral edema. No clubbing, no cyanosis. Peripheral pulses are intact. - Labs CBC & Chem 7: 09/21/24 15:12 09/21/24 15:12 Labs: Abnormal Lab Results - Last 24 Hours (Table) 09/22/24 09/22/24 Range/Units 16:22 19:49 POC Glucose (mg/dL) 321 H 186 H (70-110) mg/dL Microbiology - Last 24 Hours (Table) 09/17/24 14:42 Blood Culture - Final Blood Assessment and Plan Plan: Acute hypoxemic respiratory failure secondary to an acute episode of pulmonary edema and fluid volume overload, recovered and the patient is currently on room air oxygen Episodic chest pain, normal coronaries Hypertensive with a better controlled blood pressure, currently covered with multiple antihypertensive medications. End-stage renal disease requiring hemodialysis 4 times per week, undergoing hemodialysis this morning Hyperkalemia secondary to above Diabetes mellitus, insulin-dependent Anemia of chronic disease History of CVA/TIA History of optic neuritis Hypothyroidism History of depression Abnormal echocardiogram, patient with abnormal echo with evidence of hypodense lesion at the tip of the dialysis catheter in the right atrium questionably hematoma as the patient do report issues with the dialysis and clotting clinically not behaving as infection/infected vegetation as the patient did not have any fever or any elevated white count in this hospital stay but not entirely excluded Plan: Hemodialysis per nephrology Monitor the blood pressure and adjust antihypertensive medications accordingly, BP is being monitored Cardiac catheterization showed normal coronaries Stable and on room air Nephrology is on the case [employer] on the case. Patient currently on room air oxygen and pulmonary services will sign off.
--- NOTE | 2024-09-23 16:12 | P.DS ---
Providers Date of admission: 09/04/24 05:55 Expected date of discharge: 09/23/24 Attending physician: Dhaiana Chan Consults: 09/04/24 05:55 Consult Physician Stat Consulting Provider: Jamal Seay Consult Reason/Comments: Hypertensive urgency. Congestive heart failure. Dialysis patient. Do you want consulting provider notified?: Yes Consult Physician Urgent Consulting Provider: Charlene Lim Consult Reason/Comments: Dialysis patient Do you want consulting provider notified?: Yes 09/09/24 14:16 Consult Physician Routine Consulting Provider: New Feng Consult Reason/Comments: hand pain Do you want consulting provider notified?: Yes 09/14/24 04:11 Consult Physician Stat Consulting Provider: Mahendra Hanson Consult Reason/Comments: chest pain Do you want consulting provider notified?: Yes, Notify in am 09/15/24 13:22 Consult Physician Routine Consulting Provider: Marianna Rm Consult Reason/Comments: 2D echo showing possible vegetation. Do you want consulting provider notified?: Yes Primary care physician: Stated None Hospital Course: Discharge diagnoses: Hypertensive emergency requiring nitroglycerin drip on admission. Currently off drip. Acute hypoxic respiratory failure due to pulmonary edema/volume overload. Requiring BiPAP on admission. Transitioned on to room air. Elevated liver enzymes on admission. Elevated troponin level due to myocardial injury. Chest pain likely pleuritic and musculoskeletal. ESRD on hemodialysis Wednesday and Wednesday Hyperkalemia secondary to CKD Hypertension uncontrolled Diabetes type 1 History of CVA/TIA History of optic neuritis Hypothyroidism Anxiety/depression DVT prophylaxis with heparin subcu Plan: Patient received hemodialysis during hospitalization, received last hemodialysis on day of discharge. Started on colchicine. Imdur dose was increased. Labetalol dose increased, Norvasc changed to Procardia for better blood pressure control, started on clonidine 0.3 mg 3 times daily. Patient underwent cardiac catheterization which showed normal coronary arteries. Patient respiratory status gradually improved, on room air at the time of discharge. Home Lantus and Humalog resumed at discharge. Continue outpatient hemodialysis per schedule. Hospital course: Patient is a 34-year-old female with a past medical history of hypertension, diabetes type 1, ESRD on hemodialysis/4 times a week., Seizure disorder and hypothyroidism and also history of gastroparesis and chronic pain, anxiety/depression. Patient presents to ER with complaints of shortness of breath. Patient states that she had last hemodialysis on Wednesday. She has been doing well until 11 PM and started having shortness of breath and rapidly worsening. EMS was called and patient was transported to ER. Patient was placed on BiPAP and wrote. She was also having chest tightness along with shortness of breath. Denied any worsening swelling in the legs. No fever no chills. No nausea vomiting or diarrhea. No headache or dizziness. Chest x-ray showed findings consistent with CHF exacerbation/fluid overload state. EKG showed sinus tachycardia with heart rate 105 Laboratory test showed WBC 9.2 hemoglobin 10.7 and platelets 374 Sodium 134 potassium 6.2 with slight hemolysis Chloride 98 bicarb is 25 BUN 74 and creatinine 7.58 and blood sugar 266. Lactic acid 1.0 AST 147 ALT 196 and alk phos 138, troponin 0.012 and proBNP 58,200. Patient's blood pressure was 171/120 pulse 111 respiration 24 on admission. Patient was started on nitro drip in the ER. 09/05/2024 Patient is in the MICU. Currently requiring 3 L oxygen via nasal cannula. No complaints of chest pain. Complains of shortness of breath. Also complains of nausea. No close of vomiting. Patient is also being continued on Cleviprex drip. Nitroglycerin drip has been discontinued. Patient is currently undergoing hemodialysis and planning for 4Lultrafiltration. Blood pressure is also poorly controlled with SBP in 140s. Laboratory showed WBC 12.4 hemoglobin 10.5 and platelets 341 sodium 129 potassium 5.9 chloride 87 bicarb is 17 BUN 39 creatinine 5.1 blood sugar 611 AST 68 ALT is 139 alk phos 168. Critical care team and nephrology is on board. 09/06/2024 Patient is here in the MICU. Still complains of pain. Shortness of breath is much improved. Blood pressure is also better. Nitroglycerin drip has been discontinued. Patient is currently on room air. Underwent hemodialysis yesterday. Nephrology and critical care team on board. Patient is being transferred to medical floor today. Blood sugar is elevated to 308 this morning. Started on insulin regimen and titrate dose as needed. Other laboratory data showed A1c 8.3 phosphorus 6.9 sodium 131 and potassium 4.7 and chloride 94. 09/07/2024 Patient is in the medical floor. Resting in the bed. Awake alert and oriented x 3. Patient is getting hemodialysis with 4 L goal of ultrafiltration. Patient is currently room air. No complaints of chest pain or worsening shortness of breath. Patient still complaining of pain and nausea. Improved with medications. Blood pressure is still elevated today afternoon. Nephrology and pulmonary is on board. Laboratory data showed WBC 9 point hemoglobin 9.1 and platelets 308 sodium 126 potassium 4.4 chloride 191 bicarb is 23 BUN 13 and creatinine was 6.19 and blood sugar 228 and phosphorus 7.2. 09/08/2024 Patient is in the medical floor. Awake alert and oriented x 3. Still complains of nausea and generalized pain. Patient is also very oxygen via nasal cannula. Saturating at 90% on room air. Blood pressure is still elevated. Patient is scheduled for hemodialysis tomorrow. Laboratory data showed sodium 134 potassium 4.1 chloride 92 bicarb is 26.8 BUN 17.6 and creatinine 4.6 and blood sugar 142 and calcium 9.2. Patient has been afebrile. No headache or dizziness. No cough or sputum production. Nephrology and pulmonary is on board. 09/11/2021 Patient is lying in the bed. Awake alert and oriented. Complains of pain and shortness of breath. Blood pressure was high this morning with SBP's 170s. Patient is currently undergoing hemodialysis and blood pressure went down to 112/74. No complaints of dizziness or lightheadedness. Nosebleed has improved. Laboratory data showed sodium 131 potassium 4.9 chloride 89, bicarb is 31 BUN 31 and creatinine 8.37 and blood sugar 85. Calcium 9.2. Current medications reviewed. 09/16/2024 Patient is lying in the bed. Awake alert and oriented x 3. Still complains of chest discomfort. Blood pressure is elevated. Patient was also started on colchicine. Blood pressure medications are being titrated. Other laboratory data reviewed. Continued on pain medications. 09/17/2024 Patient is lying in the bed. Awake alert and orient x 3. Still having some chest discomfort. Otherwise patient feels weak and tired. No complaints of nausea or vomiting. Tolerating oral diet. Undergoing hemodialysis as per schedule. Continue blood pressure medications and pain medications. Blood sugars are fluctuating. Continue to titrate insulin dose. 09/18/2024 Patient is undergoing hemodialysis today. Awake alert and oriented x 3. Requiring 2 L oxygen via nasal cannula. Saturating at 100%. Still complains of some chest pain. Blood pressure is in 170s. Patient was started on Imdur and also on colchicine. Patient has been afebrile. No cough or sputum production. Laboratory showed WBC 6.9 hemoglobin 9.3 and platelets 240 sodium 128 potassium 5.6 chloride 95 bicarb is 21 BUN 46 and creatinine 6.42 and blood sugar is 196. Calcium 9.3. Nephrology and cardiology is on board. 09/19/2024 Patient is currently lying in the bed. Awake alert and oriented x 3. Undergoing hemodialysis. No complaints of chest pain or shortness of breath. Blood sugar is 138 this morning. Nephrology and cardiology on board. Blood pressure medications are being titrated. 09/20/2024 Patient is lying in the bed. Chest pressure is better. No complaints of shortness of breath. Blood pressure is still fluctuating. Currently on 2 L oxygen via nasal cannula. Patient has been febrile. Nausea did improve as well. No cough or sputum production. Cardiology and nephrology is on board. 09/21/2024 Patient is lying in the bed. Awake alert and oriented. Underwent hemodialysis with 4 L ultrafiltration. Blood pressure is better controlled with SBP in 160s. Currently on room air. Patient is on hypertensive medications and does need titrated. Cardiology is planning for cardiac catheterization due to continued chest pain. Continued on pain management. Also lidocaine was applied. Laboratory data showed WBC 8.9 hemoglobin 9.4 and platelets 191 sodium 130 potassium 4.6 chloride 92, BUN 19 and creatinine 3.3 and blood sugar 154 and calcium 8.9. 09/22/2024 Patient is awake alert and oriented x 3. No complaints of worsening shortness of breath. Still having chest pain. Patient is scheduled for cardiac catheterization this afternoon. Otherwise blood pressure is in 160s today. Continue to titrate with hypertensive medications. Patient is scheduled for hemodialysis tomorrow. 09/23/2024atient was seen and examined today. Patient underwent hemodialysis today. Card catheterization yesterday showed normal coronary arteries. Blood pressure was still elevated, later on trending down. Pulmonary evaluated the patient, currently on room air, pulmonary signed off. Patient condition and vital stable at discharge. Please refer to med rec and assessment plan for further details. Follow-up with PCP in 1 week. Follow-up with nephrology and cardiology as outpatient. PHYSICAL EXAMINATION: GENERAL: The patient is A&O x3, NAD HEENT: EOMI, Sclerae anicteric, Moist Mucous membranes Neck: Supple, Non tender, No JVD PULMONARY: Equal breath souds B/L, No wheezing, No crackles. CARDIOVASCULAR: S1, S2 present. No murmurs, rubs, or gallops. ABDOMEN: Soft, nontender, nondistended, normoactive bowel sounds. No guarding or rebound tenderness. MUSCULOSKELETAL: No edema, No cyanosis. No clubbing. Normal ROM. Intact peripheral pulses. EXTREMITIES: No cyanosis, clubbing, or pedal edema. NEUROLOGICAL: CN 2-12 grossly intact. No FND SKIN: No rashes. Dictation was produced using [employer] dictation software. please excuse any grammatical, word or spelling errors. Plan - Discharge Summary Discharge Rx Participant: No New Discharge Prescriptions: New Colchicine [Colcrys] 0.3 mg PO DAILY #15 each Isosorbide Mononitrate ER [Imdur] 120 mg PO DAILY #60 tab Folic Acid-Vit B Complex-Vit C [Nephrocaps] 1 each PO HS #30 cap hydrALAZINE HCL [Apresoline] 100 mg PO TID #90 tab NIFEdipine XL [Procardia XL] 60 mg PO BID #60 tab Labetalol [Trandate] 500 mg PO BID #150 tab Continue Magnesium Hydroxide [Milk of Magnesia Concentrate] 7,200 mg PO DAILY PRN PRN Reason: Constipation Lidocaine 4% Patch 1 patch TOPICAL DAILY@0800 Ipratropium-Albuterol Nebulize [Duoneb 0.5 mg-3 mg/3 ml Soln] 3 ml INHALATION RT-TID PRN each PRN Reason: Shortness Of Breath Or Wheezing Biotene Dry Mouth/Throat 10 ml PO BID PRN PRN Reason: DRY MOUTH/THROAT Acetaminophen [Tylenol] 650 mg PO Q4H PRN PRN Reason: Pain Or Fever > 100.5 Darbepoetin Artur [Aranesp] 40 mcg SQ MO Loratadine [Claritin] 5 mg PO DAILY tab INSULIN ASPART (NovoLOG) [NovoLOG (formulary)] See Protocol SQ ACHS Insulin Glargine [Lantus Vial] 12 unit SQ BID #1 each Ondansetron [Zofran] 4 mg PO Q8HR PRN #20 tab PRN Reason: Nausea And Vomiting Folic Acid-Vit B Complex-Vit C [Nephrocaps] 1 cap PO DIRECTED methocarbamoL [Robaxin-750] 750 mg PO DIRECTED Sertraline [Zoloft] 200 mg PO DIRECTED ALPRAZolam [Xanax] 0.25 mg PO BID PRN PRN Reason: Anxiety cloNIDine HCL [Catapres] 0.3 mg PO TID Docusate [Colace] 100 mg PO DAILY@0800 polyethylene glycoL 3350 [Miralax] 17 gm PO AC-LUNCH #527 gm Melatonin 1 mg PO HS tab Butalb/APAP/Caff 50-325-40Mg [Fioricet 50-325-40] 1 tab PO Q4HR PRN PRN Reason: Headache Aspirin 81 mg PO DAILY@0800 #30 tab Famotidine [Pepcid] 20 mg PO BID #60 tab Atorvastatin [Lipitor] 40 mg PO DIRECTED Divalproex ER [Depakote ER] 500 mg PO DIRECTED HYDROcodone/APAP 7.5-325MG [[place] 7.5-325] 1 tab PO DIRECTED PRN PRN Reason: Pain Levothyroxine Sodium [Synthroid] 175 mcg PO DIRECTED Metoclopramide [Reglan] 5 mg PO DIRECTED PRN PRN Reason: Nausea Pantoprazole [Protonix] 40 mg PO DIRECTED traZODone HCL [Desyrel] 50 mg PO DIRECTED Calcium Acetate [PhosLo] 2,001 mg PO TID-W/MEALS Calcium Acetate [PhosLo] 667 mg PO DAILY PRN PRN Reason: W/SNACK Discontinued Labetalol [Trandate] 200 mg PO BID 30 Days #60 tab Sacubitril/Valsartan [Entresto 49 mg-51 mg Tablet] 1 tab PO BID Isosorbide Mononitrate ER [Imdur] 30 mg PO DAILY hydrALAZINE HCL [Apresoline] 150 mg PO QID amLODIPine [Norvasc] 10 mg PO DAILY 30 Days #30 tab Discharge Medication List Docusate [Colace] 100 mg PO DAILY@0800 02/05/24 [History] Lidocaine 4% Patch 1 patch TOPICAL DAILY@0800 02/05/24 [History] Magnesium Hydroxide [Milk of Magnesia Concentrate] 7,200 mg PO DAILY PRN 02/05/24 [History] Ipratropium-Albuterol Nebulize [Duoneb 0.5 mg-3 mg/3 ml Soln] 3 ml INHALATION RT-TID PRN each 02/14/24 [Rx] polyethylene glycoL 3350 [Miralax] 17 gm PO AC-LUNCH #527 gm 02/14/24 [Rx] Acetaminophen [Tylenol] 650 mg PO Q4H PRN 02/18/24 [History] Biotene Dry Mouth/Throat 10 ml PO BID PRN 02/18/24 [History] Melatonin 1 mg PO HS tab 02/25/24 [Rx] Butalb/APAP/Caff 50-325-40Mg [Fioricet 50-325-40] 1 tab PO Q4HR PRN 03/14/24 [History] Darbepoetin Artur [Aranesp] 40 mcg SQ MO 03/14/24 [History] Loratadine [Claritin] 5 mg PO DAILY tab 03/30/24 [Rx] INSULIN ASPART (NovoLOG) [NovoLOG (formulary)] See Protocol SQ ACHS 04/16/24 [History] Aspirin 81 mg PO DAILY@0800 #30 tab 05/18/24 [Rx] Famotidine [Pepcid] 20 mg PO BID #60 tab 07/11/24 [Rx] Insulin Glargine [Lantus Vial] 12 unit SQ BID #1 each 07/11/24 [Rx] Ondansetron [Zofran] 4 mg PO Q8HR PRN #20 tab 07/11/24 [Rx] Atorvastatin [Lipitor] 40 mg PO DIRECTED 08/14/24 [History] Divalproex ER [Depakote ER] 500 mg PO DIRECTED 08/14/24 [History] Folic Acid-Vit B Complex-Vit C [Nephrocaps] 1 cap PO DIRECTED 08/14/24 [History] HYDROcodone/APAP 7.5-325MG [[place] 7.5-325] 1 tab PO DIRECTED PRN 08/14/24 [History] Levothyroxine Sodium [Synthroid] 175 mcg PO DIRECTED 08/14/24 [History] Metoclopramide [Reglan] 5 mg PO DIRECTED PRN 08/14/24 [History] Pantoprazole [Protonix] 40 mg PO DIRECTED 08/14/24 [History] Sertraline [Zoloft] 200 mg PO DIRECTED 08/14/24 [History] methocarbamoL [Robaxin-750] 750 mg PO DIRECTED 08/14/24 [History] traZODone HCL [Desyrel] 50 mg PO DIRECTED 08/14/24 [History] ALPRAZolam [Xanax] 0.25 mg PO BID PRN 09/04/24 [History] Calcium Acetate [PhosLo] 2,001 mg PO TID-W/MEALS 09/04/24 [History] Calcium Acetate [PhosLo] 667 mg PO DAILY PRN 09/04/24 [History] cloNIDine HCL [Catapres] 0.3 mg PO TID 09/04/24 [History] Colchicine [Colcrys] 0.3 mg PO DAILY #15 each 09/23/24 [Rx] Folic Acid-Vit B Complex-Vit C [Nephrocaps] 1 each PO HS #30 cap 09/23/24 [Rx] Isosorbide Mononitrate ER [Imdur] 120 mg PO DAILY #60 tab 09/23/24 [Rx] Labetalol [Trandate] 500 mg PO BID #150 tab 09/23/24 [Rx] NIFEdipine XL [Procardia XL] 60 mg PO BID #60 tab 09/23/24 [Rx] hydrALAZINE HCL [Apresoline] 100 mg PO TID #90 tab 09/23/24 [Rx] Follow up Appointment(s)/Referral(s): None,Stated [Primary Care Provider] - 1-2 days New Feng MD [STAFF PHYSICIAN] - As Needed (Right hand hypotherna contusion) Discharge/Stand Alone Forms: Area PCPs Discharge Disposition: HOME SELF-CARE
[2024-09-23 16:25] LABS: Glucose,Whole Blood 267 mg/dL (70-110)
[2024-09-23 22:55] VITALS: BP 190/105; PULSE 97; RESP 18; TEMP 98.2
== END 2024-09-23 17:50 | disposition home or self-care (01) | DRG 286 ==
LOC: EC 01:52 → 2SICU 05:55 → 4SSUR 09-06 16:05 → 3SCARD 09-14 09:41
PROVIDERS: ADMIT Hospitalist; ATTEND Hospitalist
PROC: 5A1D70Z Performance of Urinary Filtration, Intermittent, Less than 6 Hours Per Day (ICD-10-PCS; 2024-09-04)
PROC: 5A09357 Assistance with Respiratory Ventilation, Less than 24 Consecutive Hours, Continuous Positive Airway Pressure (ICD-10-PCS; 2024-09-04)
PROC: 05HA33Z Insertion of Infusion Device into Left Brachial Vein, Percutaneous Approach (ICD-10-PCS; 2024-09-15)
PROC: B2111ZZ Fluoroscopy of Multiple Coronary Arteries using Low Osmolar Contrast (ICD-10-PCS; 2024-09-22)
PROC: 4A023N7 Measurement of Cardiac Sampling and Pressure, Left Heart, Percutaneous Approach (ICD-10-PCS; principal; 2024-09-22 13:30)
DX: I16.1 Hypertensive emergency (principal); I50.33 Acute on chronic diastolic (congestive) heart failure; J96.01 Acute respiratory failure with hypoxia; N18.6 End stage renal disease; E87.20 Acidosis, unspecified; E87.1 Hypo-osmolality and hyponatremia; I31.39 Other pericardial effusion (noninflammatory); I5A Non-ischemic myocardial injury (non-traumatic); R78.81 Bacteremia; I13.2 Hypertensive heart and chronic kidney disease with heart failure and with stage 5 chronic kidney disease, or end stage renal disease; E03.9 Hypothyroidism, unspecified; Z79.890 Hormone replacement therapy; E10.22 Type 1 diabetes mellitus with diabetic chronic kidney disease; E10.319 Type 1 diabetes mellitus with unspecified diabetic retinopathy without macular edema; E10.43 Type 1 diabetes mellitus with diabetic autonomic (poly)neuropathy; E87.5 Hyperkalemia; F32.A Depression, unspecified; F41.9 Anxiety disorder, unspecified; G40.909 Epilepsy, unspecified, not intractable, without status epilepticus; K31.84 Gastroparesis; E10.65 Type 1 diabetes mellitus with hyperglycemia; R04.0 Epistaxis; S60.221A Contusion of right hand, initial encounter; D63.1 Anemia in chronic kidney disease; R53.82 Chronic fatigue, unspecified; E78.5 Hyperlipidemia, unspecified; E10.42 Type 1 diabetes mellitus with diabetic polyneuropathy; R00.0 Tachycardia, unspecified; R07.81 Pleurodynia; R01.1 Cardiac murmur, unspecified; I08.1 Rheumatic disorders of both mitral and tricuspid valves; F17.210 Nicotine dependence, cigarettes, uncomplicated; K04.7 Periapical abscess without sinus; M89.8X9 Other specified disorders of bone, unspecified site; Z79.4 Long term (current) use of insulin; Z79.82 Long term (current) use of aspirin; Z79.899 Other long term (current) drug therapy; Z82.49 Family history of ischemic heart disease and other diseases of the circulatory system; Z86.73 Personal history of transient ischemic attack (TIA), and cerebral infarction without residual deficits; Z99.2 Dependence on renal dialysis; Z88.5 Allergy status to narcotic agent; Z88.6 Allergy status to analgesic agent; Z90.49 Acquired absence of other specified parts of digestive tract; Z91.030 Bee allergy status; Z88.8 Allergy status to other drugs, medicaments and biological substances
CPT/HCPCS: 36410; 36415; 71045; 76937; 80048; 80051; 80053; 80061; 80164; 82728; 83036; 83540; 83550; 83605; 83880; 84100; 84132; 84145; 84484; 84703; 85025; 85379; 85610; 85652; 85730; 86140; 87040; 90935; 93005; 93306; 93458; 94640; 94660; 94760; 96365; 96366; 96375; 96376; 99291

== ENCOUNTER 2024-10-10 11:35 | Inpatient (IN) | payer MEDICARE, OTHER ==
--- NOTE | 2024-10-10 12:08 | ED ---
General Adult HPI - General Chief complaint: Upper Respiratory Infection Stated complaint: Chest pain Time Seen by Provider: 10/10/24 11:52 Source: patient, EMS, RN notes reviewed Mode of arrival: EMS Limitations: no limitations - History of Present Illness Initial comments: This is a 34-year-old female arriving via EMS with history of hypertension, DM1 and ESRD complaining of chest pain (8/10) since 830 this morning. Patient states pain radiates to her neck with associated shortness of breath and dizziness. States pain worsens with inspiration patient also mentions nausea and vomiting at 3 AM this morning with no ongoing nausea at this time. Patient states she last had dialysis performed yesterday. Patient denies fever, chills, cough, hemoptysis, abdominal pain, diarrhea. Onset/Timin -: hour(s) Location: chest Radiation: neck Severity scale (1-10): 8 Quality: stabbing Consistency: constant Improves with: none Worsens with: other (Inspiration) Associated Symptoms: nausea/vomiting, shortness of breath, other (Dizziness) Treatments Prior to Arrival: none - Related Data Home Medications Medication Instructions Recorded Confirmed Docusate [Colace] 100 mg PO DAILY@0800 02/05/24 10/10/24 Lidocaine 4% Patch 1 patch TOPICAL DAILY@0800 02/05/24 10/10/24 Magnesium Hydroxide [Milk of 7,200 mg PO DAILY PRN 02/05/24 10/10/24 Magnesia Concentrate] Acetaminophen [Tylenol] 650 mg PO Q4H PRN 02/18/24 10/10/24 Biotene Dry Mouth/Throat 10 ml PO BID PRN 02/18/24 10/10/24 Butalb/APAP/Caff 50-325-40Mg 1 tab PO Q4HR PRN 03/14/24 10/10/24 [Fioricet 50-325-40] Darbepoetin Artur [Aranesp] 40 mcg SQ MO 03/14/24 10/10/24 Atorvastatin [Lipitor] 40 mg PO DIRECTED 08/14/24 10/10/24 Divalproex ER [Depakote ER] 500 mg PO BID@0800,1700 08/14/24 10/10/24 HYDROcodone/APAP 7.5-325MG [Mullan 1 tab PO Q8H PRN 08/14/24 10/10/24 7.5-325] Levothyroxine Sodium [Synthroid] 175 mcg PO DAILY@0600 08/14/24 10/10/24 Metoclopramide [Reglan] 5 mg PO AC-TID PRN 08/14/24 10/10/24 Pantoprazole [Protonix] 40 mg PO DAILY@0600 08/14/24 10/10/24 Sertraline [Zoloft] 200 mg PO DAILY@0800 08/14/24 10/10/24 methocarbamoL [Robaxin-750] 750 mg PO DIRECTED 08/14/24 10/10/24 traZODone HCL [Desyrel] 50 mg PO HS 08/14/24 10/10/24 ALPRAZolam [Xanax] 0.25 mg PO BID PRN 09/04/24 10/10/24 Calcium Acetate [PhosLo] 2,001 mg PO TID-W/MEALS 09/04/24 10/10/24 Calcium Acetate [PhosLo] 667 mg PO DAILY PRN 09/04/24 10/10/24 cloNIDine HCL [Catapres] 0.3 mg PO TID 09/04/24 10/10/24 Insulin Aspart [NovoLOG Flexpen] 4 units SQ AC-TID 10/10/24 10/10/24 Insulin Aspart [NovoLOG Flexpen] See Protocol SQ ACHS 10/10/24 10/10/24 Insulin Glargine,Hum.rec.anlog 12 units SQ BID 10/10/24 10/10/24 [Lantus Solostar Pen] Triphrocaps 1mg Cap 1 cap PO DAILY 10/10/24 10/10/24 Previous Rx's Medication Instructions Recorded Ipratropium-Albuterol Nebulize 3 ml INHALATION RT-TID PRN each 02/14/24 [Duoneb 0.5 mg-3 mg/3 ml Soln] polyethylene glycoL 3350 [Miralax] 17 gm PO AC-LUNCH #527 gm 02/14/24 Melatonin 1 mg PO HS tab 02/25/24 Loratadine [Claritin] 5 mg PO DAILY tab 03/30/24 Aspirin 81 mg PO DAILY@0800 #30 tab 05/18/24 Famotidine [Pepcid] 20 mg PO BID #60 tab 07/11/24 Ondansetron [Zofran] 4 mg PO Q8HR PRN #20 tab 07/11/24 Colchicine [Colcrys] 0.3 mg PO DAILY #15 each 09/23/24 Isosorbide Mononitrate ER [Imdur] 120 mg PO DAILY #60 tab 09/23/24 Labetalol [Trandate] 500 mg PO BID #150 tab 09/23/24 NIFEdipine XL [Procardia XL] 60 mg PO BID #60 tab 09/23/24 hydrALAZINE HCL [Apresoline] 100 mg PO TID #90 tab 09/23/24 Allergies Allergy/AdvReac Type Severity Reaction Status Date / Time hydromorphone HCl Allergy Anaphylaxis Verified 10/10/24 16:07 [From Dilaudid] propoxyphene Allergy Rash/Hives Verified 10/10/24 16:07 [From Darvocet-N] tramadol Allergy Anaphylaxis Verified 10/10/24 16:07 ibuprofen [From Motrin] AdvReac unable to Verified 10/10/24 16:07 take due to kidney disease venom-honey bee AdvReac passes out Verified 10/10/24 16:07 [bee venom (honey bee)] Review of Systems ROS Statement: Those systems with pertinent positive or pertinent negative responses have been documented in the HPI. ROS Other: All systems not noted in ROS Statement are negative. Past Medical History Past Medical History: Diabetes Mellitus, GERD/Reflux, Hypertension, Renal Disease, Seizure Disorder, Thyroid Disorder Additional Past Medical History / Comment(s): Neuropathy, last seizure 2020, gastroparesis, headaches with dialysis, states "fast heart rate" since giving ., receives Hemodialysis Wednesday- and Saturdays at [facility] right chest hemodialysis catheter., severe HTN. patient awaiting Kidney and Pancrease Transplant. , states sometimes she has had stroke -like symptoms but no stroke., hx of c-diff 2013. History of Any Multi-Drug Resistant Organisms: C-DIFF Date of last positivie culture/infection: unknown MDRO Source:: stool Past Surgical History: Adenoidectomy, Section, Cholecystectomy, Orthopedic Surgery, Tonsillectomy Additional Past Surgical History / Comment(s): 2 KNEE SCOPES, EAR TUBES, additional left knee surgery related to fracture, new port a cath jul 29, eye surgeries for diabetic retinopathy. Past Anesthesia/Blood Transfusion Reactions: Previous Problems w/ Anesthesia Additional Past Anesthesia/Blood Transfusion Reaction / Comment(s): confusion Past Psychological History: Anxiety, Depression Smoking Status: Current every day smoker Past Alcohol Use History: None Reported Past Drug Use History: Marijuana, Methamphetamine - Past Family History Father History Unknown: Yes Family Medical History: Unable to Obtain Mother History Unknown: Yes Family Medical History: No Reported History Grandfather History Unknown: Yes Family Medical History: Coronary Artery Disease (CAD) Additional Family Medical History / Comment(s): Diabetes mellitus type 2 General Exam Limitations: no limitations General appearance: alert, in distress Head exam: Present: atraumatic, normocephalic, normal inspection Eye exam: Present: normal appearance, PERRL, EOMI. Absent: scleral icterus, conjunctival injection, periorbital swelling ENT exam: Present: normal exam, mucous membranes moist Neck exam: Present: normal inspection. Absent: tenderness, meningismus, lymphadenopathy Respiratory exam: Present: normal lung sounds bilaterally. Absent: respiratory distress, wheezes, rales, rhonchi, stridor Cardiovascular Exam: Present: regular rate, normal rhythm, normal heart sounds. Absent: systolic murmur, diastolic murmur, rubs, gallop, clicks GI/Abdominal exam: Present: soft, tenderness (Positive right upper quadrant and epigastric tenderness. Positive Hidalgo sign. Patient endorses history of cholecystectomy), hypoactive bowel sounds. Absent: distended, guarding, rebound, rigid Extremities exam: Present: normal inspection, full ROM, normal capillary refill, other (Bilateral posterior tibialis pulse +2). Absent: tenderness, pedal edema, joint swelling, calf tenderness Back exam: Present: normal inspection Neurological exam: Present: alert, oriented X3, CN II-XII intact Psychiatric exam: Present: normal affect, normal mood Skin exam: Present: warm, dry, intact, normal color. Absent: rash Course Vital Signs 10/10/24 10/10/24 10/10/24 11:36 12:45 13:18 Temperature 100.1 F H 99.9 F H Pulse Rate 87 89 Respiratory 20 18 Rate Blood Pressure 195/105 O2 Sat by Pulse 100 98 Oximetry 10/10/24 10/10/24 10/10/24 13:34 15:12 15:57 Temperature 99.6 F 98.5 F Pulse Rate 94 104 H 106 H Respiratory 18 18 18 Rate Blood Pressure 174/104 173/92 190/106 O2 Sat by Pulse 98 99 97 Oximetry 10/10/24 10/10/24 10/10/24 16:48 18:27 19:31 Temperature 99.1 F Pulse Rate 108 H 96 91 Respiratory 18 18 16 Rate Blood Pressure 187/104 166/99 164/98 O2 Sat by Pulse 97 97 97 Oximetry 10/10/24 10/10/24 10/10/24 21:21 21:30 22:10 Temperature Pulse Rate 89 90 88 Respiratory 20 Rate Blood Pressure 159/91 O2 Sat by Pulse 96 Oximetry 10/10/24 23:18 Temperature Pulse Rate 90 Respiratory 16 Rate Blood Pressure 164/96 O2 Sat by Pulse 98 Oximetry Medical Decision Making - Medical Decision Making Was pt. sent in by a medical professional or institution (, PA, ACCOUNTING MACHINE OPERATOR, urgent care, hospital, or residential...) When possible be specific @ -No Did you speak to anyone other than the patient for history (EMS, parent, family, police, friend...)? What history was obtained from this source @ -No Did you review nursing and triage notes (agree or disagree)? Why? @ -I reviewed and agree with nursing and triage notes Were old charts reviewed (outside hosp., previous admission, EMS record, old EKG, old radiological studies, urgent care reports/EKG's, residential records)? Report findings @ -No old charts were reviewed Differential Diagnosis (chest pain, altered mental status, abdominal pain women, abdominal pain men, vaginal bleeding, weakness, fever, dyspnea, syncope, headache, dizziness, GI bleed, back pain, seizure, CVA, palpatations, mental health, musculoskeletal)? @ -Differential Chest Pain: Stable Angina, Unstable Angina, STEMI, NSTEMI Aortic Dissection, Pneumothorax, Musculoskeletal, Esophageal Spasm GERD, Cholecystitis, Pancreatitis, Zoster, this is not meant to be an all-inclusive list. EKG interpreted by me (3pts min.). @ -Sinus rhythm without ST changes or T wave inversion. Ventricular rate 84 bpm, HUNTER 122 ms, QRS duration 85 ms, QTc 440 ms. X-rays interpreted by me (1pt min.). @ -Chest x-ray shows mild mildly enlarged heart, perihilar and interstitial opacity with no pleural effusion. Pulmonary vascular congestion with mild interstitial edema. CT interpreted by me (1pt min.). @ -None done U/S interpreted by me (1pt. min.). @ -None done What testing was considered but not performed or refused? (CT, X-rays, U/S, labs)? Why? @ -None What meds were considered but not given or refused? Why? @ -None Did you discuss the management of the patient with other professionals (professionals i.e. DrKaterin, PA, ACCOUNTING MACHINE OPERATOR, lab, RT, psych nurse, social security assessor, vibration engineer, teacher, resident medical officer, case management associate)? Give summary @ -Spoke to Dr. Read from [facility] who accepted patient admission and advised to consult nephrology. Was smoking cessation discussed for >3mins.? @ -No Was critical care preformed (if so, how long)? @ -No Were there social determinants of health that impacted care today? How? (Homelessness, low income, unemployed, alcoholism, drug addiction, transportation, low edu. Level, literacy, decrease access to med. care, longterm, rehab)? @ -No Was there de-escalation of care discussed even if they declined (Discuss DNR or withdrawal of care, Hospice)? DNR status @ -No What co-morbidities impacted this encounter? (DM, HTN, Smoking, COPD, CAD, Cancer, CVA, ARF, Chemo, Hep., AIDS, mental health diagnosis, sleep apnea, morbid obesity)? @ -DM1, ESRD Was patient admitted / discharged? Hospital course, mention meds given and route, prescriptions, significant lab abnormalities, going to OR and other pertinent info. @ -Lab work shows leukocytosis with left shift and hemoglobin of 9.4. CMP shows hyperkalemia of 6.3 and hyponatremia and low chloride. Evidence of ESRD with BUN of 44 and creatinine of 5.72. Hyperglycemia of 232 noted troponin and lactic acid were within normal limits. BNP 45,600. Cepheid test was negative. Chest x-ray shows mild mildly enlarged heart, perihilar and interstitial opacity with no pleural effusion. Pulmonary vascular congestion with mild interstitial edema. P.o. Tylenol and IV normal saline initially given for suspected URI. P.o. Lokelma for hyperkalemia and IV morphine given for pain. Spoke to Dr. Read from [facility] who accepted patient admission and advised to consult nephrology. Undiagnosed new problem with uncertain prognosis? @ -No Drug Therapy requiring intensive monitoring for toxicity (Heparin, Nitro, Insulin, Cardizem)? @ -No Were any procedures done? @ -No Diagnosis/symptom? @ -Flash Pulmonary edema, hyperkalemia Acute, or Chronic, or Acute on Chronic? @ -Acute Uncomplicated (without systemic symptoms) or Complicated (systemic symptoms)? @ -Complicated Side effects of treatment? @ -No Exacerbation, Progression, or Severe Exacerbation? @ -Severe exacerbation Poses a threat to life or bodily function? How? (Chest pain, [place], [place], pneumonia, PE, COPD, DKA, ARF, appy, cholecystitis, CVA, Diverticulitis, Homicidal, Suicidal, threat to staff... and all critical care pts) @ -Hyperkalemia, pulmonary edema, ESRD - Lab Data Result diagrams: 10/14/24 05:58 10/14/24 05:58 Lab Results 10/10/24 10/10/24 10/10/24 Range/Units 12:18 12:18 12:18 WBC 14.1 H (3.8-10.6) k/uL RBC 2.92 L (3.80-5.40) m/uL Hgb 9.4 L (11.4-16.0) gm/dL Hct 28.9 L (34.0-46.0) % MCV 98.9 (80.0-100.0) fL MCH 32.0 (25.0-35.0) pg MCHC 32.4 (31.0-37.0) g/dL RDW 19.5 H (11.5-15.5) % Plt Count 292 (150-450) k/uL MPV 8.8 Neutrophils % 91 % Lymphocytes % 4 % Monocytes % 2 % Eosinophils % 2 % Basophils % 0 % Neutrophils # 12.8 H (1.3-7.7) k/uL Lymphocytes # 0.6 L (1.0-4.8) k/uL Monocytes # 0.3 (0-1.0) k/uL Eosinophils # 0.3 (0-0.7) k/uL Basophils # 0.0 (0-0.2) k/uL Anisocytosis Slight Macrocytosis Moderate PT 10.6 (10.0-12.5) sec INR 1.0 (<1.2) APTT 20.7 L (22.0-30.0) sec D-Dimer 0.35 (<0.60) mg/L FEU Sodium 128 L (137-145) mmol/L Potassium 6.3 H* (3.5-5.1) mmol/L Chloride 90 L (98-107) mmol/L Carbon Dioxide 24 (22-30) mmol/L Anion Gap 14 mmol/L BUN 44 H (7-17) mg/dL Creatinine 5.72 H (0.52-1.04) mg/dL Est GFR (CKD-EPI)AfAm 10 (>60 ml/min/1.73 sqM) Est GFR (CKD-EPI)NonAf 9 (>60 ml/min/1.73 sqM) Glucose 232 H (74-99) mg/dL Plasma Lactic Acid Christopher (0.7-2.0) mmol/L Calcium 9.0 (8.4-10.2) mg/dL Total Bilirubin 1.2 (0.2-1.3) mg/dL AST 35 (14-36) U/L ALT 31 (4-34) U/L Alkaline Phosphatase 93 (38-126) U/L Troponin I (0.000-0.034) ng/mL NT-Pro-B Natriuret Pep pg/mL Total Protein 6.7 (6.3-8.2) g/dL Albumin 4.3 (3.5-5.0) g/dL HCG, Quant mIU/mL Influenza Type A (PCR) (Not Detectd) Influenza Type B (PCR) (Not Detectd) RSV (PCR) (Not Detectd) SARS-CoV-2 (PCR) (Not Detectd) 10/10/24 10/10/24 10/10/24 Range/Units 12:18 12:18 12:18 WBC (3.8-10.6) k/uL RBC (3.80-5.40) m/uL Hgb (11.4-16.0) gm/dL Hct (34.0-46.0) % MCV (80.0-100.0) fL MCH (25.0-35.0) pg MCHC (31.0-37.0) g/dL RDW (11.5-15.5) % Plt Count (150-450) k/uL MPV Neutrophils % % Lymphocytes % % Monocytes % % Eosinophils % % Basophils % % Neutrophils # (1.3-7.7) k/uL Lymphocytes # (1.0-4.8) k/uL Monocytes # (0-1.0) k/uL Eosinophils # (0-0.7) k/uL Basophils # (0-0.2) k/uL Anisocytosis Macrocytosis PT (10.0-12.5) sec INR (<1.2) APTT (22.0-30.0) sec D-Dimer (<0.60) mg/L FEU Sodium (137-145) mmol/L Potassium (3.5-5.1) mmol/L Chloride (98-107) mmol/L Carbon Dioxide (22-30) mmol/L Anion Gap mmol/L BUN (7-17) mg/dL Creatinine (0.52-1.04) mg/dL Est GFR (CKD-EPI)AfAm (>60 ml/min/1.73 sqM) Est GFR (CKD-EPI)NonAf (>60 ml/min/1.73 sqM) Glucose (74-99) mg/dL Plasma Lactic Acid Christopher 1.6 (0.7-2.0) mmol/L Calcium (8.4-10.2) mg/dL Total Bilirubin (0.2-1.3) mg/dL AST (14-36) U/L ALT (4-34) U/L Alkaline Phosphatase (38-126) U/L Troponin I 0.021 (0.000-0.034) ng/mL NT-Pro-B Natriuret Pep pg/mL Total Protein (6.3-8.2) g/dL Albumin (3.5-5.0) g/dL HCG, Quant mIU/mL Influenza Type A (PCR) Not Detected (Not Detectd) Influenza Type B (PCR) Not Detected (Not Detectd) RSV (PCR) Not Detected (Not Detectd) SARS-CoV-2 (PCR) Not Detected (Not Detectd) 10/10/24 Range/Units 12:18 WBC (3.8-10.6) k/uL RBC (3.80-5.40) m/uL Hgb (11.4-16.0) gm/dL Hct (34.0-46.0) % MCV (80.0-100.0) fL MCH (25.0-35.0) pg MCHC (31.0-37.0) g/dL RDW (11.5-15.5) % Plt Count (150-450) k/uL MPV Neutrophils % % Lymphocytes % % Monocytes % % Eosinophils % % Basophils % % Neutrophils # (1.3-7.7) k/uL Lymphocytes # (1.0-4.8) k/uL Monocytes # (0-1.0) k/uL Eosinophils # (0-0.7) k/uL Basophils # (0-0.2) k/uL Anisocytosis Macrocytosis PT (10.0-12.5) sec INR (<1.2) APTT (22.0-30.0) sec D-Dimer (<0.60) mg/L FEU Sodium (137-145) mmol/L Potassium (3.5-5.1) mmol/L Chloride (98-107) mmol/L Carbon Dioxide (22-30) mmol/L Anion Gap mmol/L BUN (7-17) mg/dL Creatinine (0.52-1.04) mg/dL Est GFR (CKD-EPI)AfAm (>60 ml/min/1.73 sqM) Est GFR (CKD-EPI)NonAf (>60 ml/min/1.73 sqM) Glucose (74-99) mg/dL Plasma Lactic Acid Christopher (0.7-2.0) mmol/L Calcium (8.4-10.2) mg/dL Total Bilirubin (0.2-1.3) mg/dL AST (14-36) U/L ALT (4-34) U/L Alkaline Phosphatase (38-126) U/L Troponin I (0.000-0.034) ng/mL NT-Pro-B Natriuret Pep 62693 pg/mL Total Protein (6.3-8.2) g/dL Albumin (3.5-5.0) g/dL HCG, Quant <2.4 mIU/mL Influenza Type A (PCR) (Not Detectd) Influenza Type B (PCR) (Not Detectd) RSV (PCR) (Not Detectd) SARS-CoV-2 (PCR) (Not Detectd) Disposition Clinical Impression: Pulmonary edema, ESRD (end stage renal disease), Hyperkalemia Disposition: ADMITTED IP TO THIS HOSP Condition: Fair Is patient prescribed a controlled substance at d/c from ED?: No Time of Disposition: 15:32 Decision Date: 10/10/24 Decision Time: 15:32
[2024-10-10] MEDS: ACETAMINOPHEN TAB 325 MG TAB PO STA (12:23)
[2024-10-10 12:33] LABS: Anisocytosis Slight; Basophils % (A) 0 %; Eosinophils # (A) 0.3 k/uL (0-0.7); Eosinophils % (A) 2 %; HCT 28.9 % (34.0-46.0); HGB 9.4 gm/dL (11.4-16.0); Lymphocytes # (A) 0.6 k/uL (1.0-4.8); Lymphocytes % (A) 4 %; MCHC 32.4 g/dL (31.0-37.0); MCV 98.9 fL (80.0-100.0); Macrocytosis Moderate; Mean Platelet Volume 8.8; Monocytes # (A) 0.3 k/uL (0-1.0); Monocytes % (A) 2 %; Neutrophils # (A) 12.8 k/uL (1.3-7.7); Neutrophils % (A) 91 %; Platelet Count 292 k/uL (150-450); RBC 2.92 m/uL (3.80-5.40); RDW 19.5 % (11.5-15.5); WBC 14.1 k/uL (3.8-10.6)
[2024-10-10] MEDS: SODIUM CHLORIDE 0.9% 1,000 ML IV STA (12:44)
[2024-10-10 12:51] LABS: Prothrombin Time 10.6 sec (10.0-12.5)
[2024-10-10 12:52] LABS: ALT 31 U/L (4-34); African American GFR (CKD) 10 (>60 ml/min/1.73 sqM); Albumin 4.3 g/dL (3.5-5.0); Anion Gap 14 mmol/L; Blood Urea Nitrogen 44 mg/dL (7-17); Carbon Dioxide 24 mmol/L (22-30); Chloride 90 mmol/L (98-107); Glucose 232 mg/dL (74-99); Non-African American GFR(CKD) 9 (>60 ml/min/1.73 sqM); Sodium 128 mmol/L (137-145); Total Bilirubin 1.2 mg/dL (0.2-1.3); Total Protein 6.7 g/dL (6.3-8.2)
[2024-10-10 12:53] LABS: Partial Thromboplastin Time 20.7 sec (22.0-30.0)
[2024-10-10 13:14] LABS: AST 35 U/L (14-36); Alkaline Phosphatase 93 U/L (38-126); Potassium 6.3 mmol/L (3.5-5.1)
--- NOTE | 2024-10-10 13:25 | XR ---
EXAMINATION TYPE: XR chest 2V DATE OF EXAM: 10/10/2024 1:20 PM COMPARISON: 09/04/2024 CLINICAL INDICATION: Female, 34 years old with history of Right side chest pain, , TECHNIQUE: AP and lateral views FINDINGS: Heart mildly enlarged. Perihilar and interstitial opacity is noted. Not quite as extensive as on 08/16. No pleural effusion. Right-sided double-lumen hemodialysis catheter with tips in the right at rium. IMPRESSION: Correlate for CHF with pulmonary vascular congestion and mild interstitial edema. Changes not quite a s extensive as on 09/04/2024. [facility], , 10/10/2024 1:23 PM
[2024-10-10] MEDS: SODIUM ZIRCONIUM CYCLOSILICATE 10 GM PACKET PO ONE (13:53)
[2024-10-10 14:27] LABS: HCG,Quantitative Serum <2.4 mIU/mL
[2024-10-10 14:43] LABS: NT-Pro-B-Type Natriuretic Pept 45600 pg/mL
[2024-10-10] MEDS: MORPHINE SULFATE 4 MG/ML SYRINGE IVP STA (14:48)
[2024-10-10] MEDS ORDERED: NALOXONE 0.4 MG/ML 1 ML VIAL IV PRN (15:26)
[2024-10-10] MEDS ORDERED: CALCIUM ACETATE 667 MG TAB PO PRN (15:28)
[2024-10-10 15:44] LABS: Glucose,Whole Blood 512 mg/dL (70-110)
[2024-10-10] MEDS: INSULIN ASPART (NovoLOG) 100 UNIT/ML VIAL SQ ONE (15:53)
[2024-10-10] MEDS: cloNIDine HCL 0.1 MG TAB PO SCH (15:55)
[2024-10-10] MEDS: hydrALAZINE HCL 50 MG TAB PO SCH (15:55)
[2024-10-10] MEDS: ONDANSETRON 4 MG/2 ML VIAL IVP STA (16:15)
[2024-10-10] MEDS: MORPHINE SULFATE 2 MG/ML SYRINGE IVP ONE (16:16)
[2024-10-10 16:43] LABS: Glucose,Whole Blood 440 mg/dL (70-110)
[2024-10-10 17:48] LABS: Glucose,Whole Blood 352 mg/dL (70-110)
[2024-10-10] MEDS: INSULIN ASPART (NovoLOG) 100 UNIT/ML VIAL SQ SCH (17:55)
[2024-10-10] MEDS: MORPHINE SULFATE 2 MG/ML SYRINGE IV PRN (19:35)
[2024-10-10 20:41] LABS: Glucose,Whole Blood 210 mg/dL (70-110)
[2024-10-10] MEDS: traZODone HCL 50 MG TAB PO SCH (20:49)
[2024-10-10] MEDS: ATORVASTATIN 40 MG TAB PO SCH (20:49)
[2024-10-10] MEDS: FAMOTIDINE 20 MG TAB PO SCH (20:49)
[2024-10-10] MEDS: LABETALOL 200 MG TAB PO SCH (20:51)
[2024-10-10] MEDS: HEPARIN SODIUM,PORCINE 5,000 UNIT/ML 1 ML VIAL SQ SCH (20:54)
[2024-10-10] MEDS: INSULIN DETEMIR (LEVEMIR) 100 UNIT/ML SYR SQ SCH (21:08)
[2024-10-10] MEDS: IPRATROPIUM-ALBUTEROL 3 ML NEB INHALATION PRN (21:21)
[2024-10-10] MEDS: ACETAMINOPHEN TAB 325 MG TAB PO PRN (23:34)
[2024-10-10] MEDS: ALPRAZolam 0.25 MG TAB PO PRN (23:35)
[2024-10-11] MEDS: DEXTROSE 50% SYRINGE 50 ML IVP STA (00:18)
[2024-10-11 05:54] LABS: Glucose,Whole Blood 64 mg/dL (70-110)
[2024-10-11 06:13] LABS: Glucose,Whole Blood 64 mg/dL (70-110)
[2024-10-11 06:29] LABS: ALT 31 U/L (4-34); AST 27 U/L (14-36); African American GFR (CKD) 7 (>60 ml/min/1.73 sqM); Albumin 3.9 g/dL (3.5-5.0); Alkaline Phosphatase 82 U/L (38-126); Anion Gap 11 mmol/L; Blood Urea Nitrogen 59 mg/dL (7-17); Calcium 8.4 mg/dL (8.4-10.2); Carbon Dioxide 27 mmol/L (22-30); Chloride 92 mmol/L (98-107); Glucose 58 mg/dL (74-99); Non-African American GFR(CKD) 6 (>60 ml/min/1.73 sqM); Potassium 5.3 mmol/L (3.5-5.1); Sodium 130 mmol/L (137-145); Total Bilirubin 0.8 mg/dL (0.2-1.3); Total Protein 6.2 g/dL (6.3-8.2)
[2024-10-11 06:31] LABS: Glucose,Whole Blood 97 mg/dL (70-110)
[2024-10-11] MEDS: PANTOPRAZOLE 40 MG TABLET PO SCH (06:38)
[2024-10-11] MEDS: LEVOTHYROXINE 88 MCG TAB PO SCH (06:39)
--- NOTE | 2024-10-11 10:08 | P.NPCON ---
History of Present Illness - Reason for Consult end stage renal disease - History of Present Illness patient is a 34-year-old female with end-stage renal disease on hemodialysis Wednesday schedule along with extra treatment on Mondays. She is admitted to the hospital with complaints of chest pain mostly near the permacath. There is no history of redness or drainage from the catheter sit e.patient is afebrile. Currently seen on dialysis tolerating treatment well. Blood pressure was elevated. No complaints of shortness of breath. No complaints of nausea vomiting or diarrhea. Past Medical History Past Medical History: Diabetes Mellitus, GERD/Reflux, Hypertension, Renal Disease, Seizure Disorder, Thyroid Disorder Additional Past Medical History / Comment(s): Neuropathy, last seizure 2020, gastroparesis, headaches with dialysis, states "fast heart rate" since giving ., receives Hemodialysis Wednesday- and Saturdays at [facility]., right chest hemodialysis catheter., severe HTN. patient awaiting Kidney and Pancrease Transplant. , states sometimes she has had stroke -like symptoms but no stroke., hx of c-diff 2013. History of Any Multi-Drug Resistant Organisms: C-DIFF Date of last positivie culture/infection: unknown MDRO Source:: stool Past Surgical History: Adenoidectomy, Section, Cholecystectomy, Orthopedic Surgery, Tonsillectomy Additional Past Surgical History / Comment(s): 2 KNEE SCOPES, EAR TUBES, additional left knee surgery related to fracture, new port a cath sept , eye surgeries for diabetic retinopathy. laser sx 2023 Past Anesthesia/Blood Transfusion Reactions: Previous Problems w/ Anesthesia Additional Past Anesthesia/Blood Transfusion Reaction / Comment(s): confusion Past Psychological History: Anxiety, Depression Smoking Status: Current every day smoker Past Alcohol Use History: None Reported Additional Past Alcohol Use History / Comment(s): quit smoking 01/08 hx of up to 3 ppd. Past Drug Use History: Marijuana, Methamphetamine Additional Drug Use History / Comment(s): previously using marijuana edibles in nov 2023. Not eating currently - Past Family History Father History Unknown: Yes Family Medical History: Unable to Obtain Mother History Unknown: Yes Family Medical History: No Reported History Grandfather History Unknown: Yes Family Medical History: Coronary Artery Disease (CAD) Additional Family Medical History / Comment(s): Diabetes mellitus type 2 Medications and Allergies Home Medications Medication Instructions Recorded Confirmed Type Docusate [Colace] 100 mg PO DAILY@0800 02/05/24 10/10/24 History Lidocaine 4% Patch 1 patch TOPICAL DAILY@0800 02/05/24 10/10/24 History Magnesium Hydroxide [Milk of 7,200 mg PO DAILY PRN 02/05/24 10/10/24 History Magnesia Concentrate] Ipratropium-Albuterol Nebulize 3 ml INHALATION RT-TID PRN each 02/14/24 10/10/24 Rx [Duoneb 0.5 mg-3 mg/3 ml Soln] polyethylene glycoL 3350 [Miralax] 17 gm PO AC-LUNCH #527 gm 02/14/24 10/10/24 Rx Acetaminophen [Tylenol] 650 mg PO Q4H PRN 02/18/24 10/10/24 History Biotene Dry Mouth/Throat 10 ml PO BID PRN 02/18/24 10/10/24 History Melatonin 1 mg PO HS tab 02/25/24 10/10/24 Rx Butalb/APAP/Caff 50-325-40Mg 1 tab PO Q4HR PRN 03/14/24 10/10/24 History [Fioricet 50-325-40] Darbepoetin Artur [Aranesp] 40 mcg SQ MO 03/14/24 10/10/24 History Loratadine [Claritin] 5 mg PO DAILY tab 03/30/24 10/10/24 Rx Aspirin 81 mg PO DAILY@0800 #30 tab 05/18/24 10/10/24 Rx Famotidine [Pepcid] 20 mg PO BID #60 tab 07/11/24 10/10/24 Rx Ondansetron [Zofran] 4 mg PO Q8HR PRN #20 tab 07/11/24 10/10/24 Rx Atorvastatin [Lipitor] 40 mg PO DIRECTED 08/14/24 10/10/24 History Divalproex ER [Depakote ER] 500 mg PO BID@0800,1700 08/14/24 10/10/24 History HYDROcodone/APAP 7.5-325MG [Alba 1 tab PO Q8H PRN 08/14/24 10/10/24 History 7.5-325] Levothyroxine Sodium [Synthroid] 175 mcg PO DAILY@0600 24 11/26/24 History Metoclopramide [Reglan] 5 mg PO AC-TID PRN 08/14/24 10/10/24 History Pantoprazole [Protonix] 40 mg PO DAILY@59908/14/24 10/10/24 History Sertraline [Zoloft] 200 mg PO DAILY@0808/14/24 10/10/24 History methocarbamoL [Robaxin-750] 750 mg PO DIRECTED 08/14/24 10/10/24 History traZODone HCL [Desyrel] 50 mg PO HS 08/14/24 10/10/24 History ALPRAZolam [Xanax] 0.25 mg PO BID PRN 09/04/24 10/10/24 History Calcium Acetate [PhosLo] 2,001 mg PO TID-W/MEALS 09/04/24 10/10/24 History Calcium Acetate [PhosLo] 667 mg PO DAILY PRN 09/04/24 10/10/24 History cloNIDine HCL [Catapres] 0.3 mg PO TID 09/04/24 10/10/24 History Colchicine [Colcrys] 0.3 mg PO DAILY #15 each 09/23/24 10/10/24 Rx Isosorbide Mononitrate ER [Imdur] 120 mg PO DAILY #60 tab 09/23/24 10/10/24 Rx Labetalol [Trandate] 500 mg PO BID #150 tab 09/23/24 10/10/24 Rx NIFEdipine XL [Procardia XL] 60 mg PO BID #60 tab 09/23/24 10/10/24 Rx hydrALAZINE HCL [Apresoline] 100 mg PO TID #90 tab 09/23/24 10/10/24 Rx Insulin Aspart [NovoLOG Flexpen] 4 units SQ AC-TID 10/10/24 10/10/24 History Insulin Aspart [NovoLOG Flexpen] See Protocol SQ ACHS 10/10/24 10/10/24 History Insulin Glargine,Hum.rec.anlog 12 units SQ BID 10/10/24 10/10/24 History [Lantus Solostar Pen] Triphrocaps 1mg Cap 1 cap PO DAILY 10/10/24 10/10/24 History Allergies Allergy/AdvReac Type Severity Reaction Status Date / Time hydromorphone HCl Allergy Anaphylaxis Verified 10/10/24 16:07 [From Dilaudid] propoxyphene Allergy Rash/Hives Verified 10/10/24 16:07 [From Darvocet-N] tramadol Allergy Anaphylaxis Verified 10/10/24 16:07 ibuprofen [From Motrin] AdvReac unable to Verified 10/10/24 16:07 take due to kidney disease venom-honey bee AdvReac passes out Verified 10/10/24 16:07 [bee venom (honey bee)] Physical Exam Vitals: Vital Signs Temp Pulse Pulse Resp BP BP Pulse Ox 10/11/24 04:31 98.1 F 76 16 130/78 97 10/11/24 02:00 91 16 10/10/24 23:37 99.2 F 16 154/87 96 10/10/24 23:35 99.2 F 91 16 154/87 96 10/10/24 23:18 90 16 164/96 98 10/10/24 22:10 88 20 159/91 96 10/10/24 21:30 90 10/10/24 21:21 89 10/10/24 19:31 99.1 F 91 16 164/98 97 10/10/24 18:27 96 18 166/99 97 10/10/24 16:48 108 H 18 187/104 97 10/10/24 15:57 106 H 18 190/106 97 10/10/24 15:12 98.5 F 104 H 18 173/92 99 10/10/24 13:34 99.6 F 94 18 174/104 98 10/10/24 13:18 99.9 F H 10/10/24 12:45 89 18 98 10/10/24 11:36 100.1 F H 87 20 195/105 100 Intake and Output 10/10/24 10/11/24 10/11/24 22:59 06:59 14:59 Intake Total 270 Balance 270 Intake: Oral 270 Other: Voiding Method Toilet # Voids 1 0 # Bowel Movements 0 Weight 64.7 kg patient is comfortable awake alert oriented 3. 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 End-stage renal disease on hemodialysis on Wednesday schedule along with x-ray treatment on Mondays for volume overload 2. Chest pain, atypical. No erythema noted around the catheter site. 3. CK D mineral bone disorder 4. Hypertension 5. Diabetic gastroparesis Plan: hemodialysis today Check blood cultures Continue current antihypertensive medications Increase UF as tolerated with hemodialysis today.
[2024-10-11 10:48] VITALS: BMI 21.7
[2024-10-11 10:58] LABS: Glucose,Whole Blood 203 mg/dL (70-110)
[2024-10-11] MEDS: ISOSORBIDE MONONITRATE ER 60 MG TAB.ER.24H PO SCH (11:21)
[2024-10-11] MEDS: DOCUSATE 100 MG CAP PO SCH (11:21)
[2024-10-11] MEDS: SERTRALINE 100 MG TAB PO SCH (11:21)
[2024-10-11] MEDS ORDERED: METOCLOPRAMIDE 5 MG TAB PO PRN (11:35)
[2024-10-11] MEDS ORDERED: ONDANSETRON 4 MG TAB PO PRN (11:35)
--- NOTE | 2024-10-11 11:36 | P.HPIM ---
History of Present Illness H&P Date: 10/10/24 Chief Complaint: Chest pain and shortness of breath Patient is a 4-year-old female with a past medical history of ESRD on hemodialysis 4 times a week with right subclavian permacath awaiting panel and liver transplant , hypertension, diabetes type 2 insulin-dependent, hypoth yroidism, diabetic neuropathy, gastroparesis,, anxiety/depression, currently everyday smoker and history of marijuana and methamphetamine use. Patient was recently discharged from the hospital on 09/23/2024 after prolonged stay due to hypertensive emergency and pulmonary edema and fluid overload. Bernard lewis presented back to the hospital with complaints of chest pain 8 of 10 in severity started around 8:30 in the morning. Patient also states that the pain radiated to her neck associated shortness of breath and dizziness. Worsens with inspiration and is also complaining of nausea and vomiting started around 3 AM in the morning. Patient had hemodialysis done yesterday with full run. Denied any fever or chills. No cough or sputum production. No diarrhea. No complaint of abdominal pain. On admission blood pressure 195/105 pulse 87 respiration 20 and pulse ox 100% on room air. Laboratory data showed WBC 14.1 hemoglobin 9.4 and platelets 292 Sodium 128 potassium 6.3 with slight hemolysis, chloride 90 bicarb is 24 BUN 44 and creatinine 5.72 and blood sugar 232 and repeat was 512 liver enzymes not elevated proBNP 44,600 Flu in the ED RSV and COVID-19 PCR not detected. Chest x-ray showed correlate for CHF with pulmonary vascular congestion and mild interstitial edema. Review of Systems Constitutional: Patient denies any fever or chills . No generalized weakness or weight loss. Generalized body aches. Abdomen: Nausea vomiting abdominal pain. No diarrhea.. Cardiovascular: Complaints of chest pain and shortness breath. No palpitations no leg swelling Respiratory: patient denied any cough or sputum production. Positive for shortness of breath Neurologic: Patient denied any numbness or tingling. no headache. Musculoskeletal: Patient denies any complaints of joint swelling or deformity. Skin: Negative Psychiatric: Negative Endocrine: No heat or cold intolerance. No recent weight gain. Genitourinary: No dysuria or hematuria. All other 14 point ROS negative except the above Past Medical History Past Medical History: Diabetes Mellitus, GERD/Reflux, Hypertension, Renal Disease, Seizure Disorder, Thyroid Disorder Additional Past Medical History / Comment(s): Neuropathy, last seizure 2020, gastroparesis, headaches with dialysis, states "fast heart rate" since giving ., receives Hemodialysis Wednesday- and Saturdays at [facility]., right chest hemodialysis catheter., severe HTN. patient awaiting Kidney and Pancrease Transplant. , states sometimes she has had stroke -like symptoms but no stroke., hx of c-diff 2013. History of Any Multi-Drug Resistant Organisms: C-DIFF Date of last positivie culture/infection: unknown MDRO Source:: stool Past Surgical History: Adenoidectomy, Section, Cholecystectomy, Orthopedic Surgery, Tonsillectomy Additional Past Surgical History / Comment(s): 2 KNEE SCOPES, EAR TUBES, a dditional left knee surgery related to fracture, new port a cath sept , eye surgeries for diabetic retinopathy. Past Anesthesia/Blood Transfusion Reactions: Previous Problems w/ Anesthesia Additional Past Anesthesia/Blood Transfusion Reaction / Comment(s): confusion Past Psychological History: Anxiety, Depression Smoking Status: Current every day smoker Past Alcohol Use History: None Reported Past Drug Use History: Marijuana, Methamphetamine - Past Family History Father History Unknown: Yes Family Medical History: Unable to Obtain Mother History Unknown: Yes Family Medical History: No Reported History Grandfather History Unknown: Yes Family Medical History: Coronary Artery Disease (CAD) Additional Family Medical History / Comment(s): Diabetes mellitus type 2 Medications and Allergies Home Medications Medication Instructions Recorded Confirmed Type Docusate [Colace] 100 mg PO DAILY@0800 02/05/24 10/10/24 History Lidocaine 4% Patch 1 patch TOPICAL DAILY@0800 02/05/24 10/10/24 History Magnesium Hydroxide [Milk of 7,200 mg PO DAILY PRN 02/05/24 10/10/24 History Magnesia Concentrate] Ipratropium-Albuterol Nebulize 3 ml INHALATION RT-TID PRN each 02/14/24 10/10/24 Rx [Duoneb 0.5 mg-3 mg/3 ml Soln] polyethylene glycoL 3350 [Miralax] 17 gm PO AC-LUNCH #527 gm 02/14/24 10/10/24 Rx Acetaminophen [Tylenol] 650 mg PO Q4H PRN 02/18/24 10/10/24 History Biotene Dry Mouth/Throat 10 ml PO BID PRN 02/18/24 10/10/24 History Melatonin 1 mg PO HS tab 02/25/24 10/10/24 Rx Butalb/APAP/Caff 50-325-40Mg 1 tab PO Q4HR PRN 03/14/24 10/10/24 History [Fioricet 50-325-40] Darbepoetin Artur [Aranesp] 40 mcg SQ MO 03/14/24 10/10/24 History Loratadine [Claritin] 5 mg PO DAILY tab 03/30/24 10/10/24 Rx Aspirin 81 mg PO DAILY@0800 #30 tab 05/18/24 10/10/24 Rx Famotidine [Pepcid] 20 mg PO BID #60 tab 07/11/24 10/10/24 Rx Ondansetron [Zofran] 4 mg PO Q8HR PRN #20 tab 07/11/24 10/10/24 Rx Atorvastatin [Lipitor] 40 mg PO DIRECTED 08/14/24 10/10/24 History Divalproex ER [Depakote ER] 500 mg PO BID@0800,1700 08/14/24 10/10/24 History HYDROcodone/APAP 7.5-325MG [Harrison 1 tab PO Q8H PRN 08/14/24 10/10/24 History 7.5-325] Levothyroxine Sodium [Synthroid] 175 mcg PO DAILY@0600 08/14/24 10/10/24 History Metoclopramide [Reglan] 5 mg PO AC-TID PRN 08/14/24 10/10/24 History Pantoprazole [Protonix] 40 mg PO DAILY@0600 08/14/24 10/10/24 History Sertraline [Zoloft] 200 mg PO DAILY@0800 08/14/24 10/10/24 History methocarbamoL [Robaxin-750] 750 mg PO DIRECTED 08/14/24 10/10/24 History traZODone HCL [Desyrel] 50 mg PO HS 08/14/24 10/10/24 History ALPRAZolam [Xanax] 0.25 mg PO BID PRN 09/04/24 10/10/24 History Calcium Acetate [PhosLo] 2,001 mg PO TID-W/MEALS 09/04/24 10/10/24 History Calcium Acetate [PhosLo] 667 mg PO DAILY PRN 09/04/24 10/10/24 History cloNIDine HCL [Catapres] 0.3 mg PO TID 09/04/24 10/10/24 History Colchicine [Colcrys] 0.3 mg PO DAILY #15 each 09/23/24 10/10/24 Rx Isosorbide Mononitrate ER [Imdur] 120 mg PO DAILY #60 tab 09/23/24 10/10/24 Rx Labetalol [Trandate] 500 mg PO BID #150 tab 09/23/24 10/10/24 Rx NIFEdipine XL [Procardia XL] 60 mg PO BID #60 tab 09/23/24 10/10/24 Rx hydrALAZINE HCL [Apresoline] 100 mg PO TID #90 tab 09/23/24 10/10/24 Rx Insulin Aspart [NovoLOG Flexpen] 4 units SQ AC-TID 10/10/24 10/10/24 History Insulin Aspart [NovoLOG Flexpen] See Protocol SQ ACHS 10/10/24 10/10/24 History Insulin Glargine,Hum.rec.anlog 12 units SQ BID 10/10/24 10/10/24 History [Lantus Solostar Pen] Triphrocaps 1mg Cap 1 cap PO DAILY 10/10/24 10/10/24 History Allergies Allergy/AdvReac Type Severity Reaction Status Date / Time hydromorphone HCl Allergy Anaphylaxis Verified 10/10/24 16:07 [From Dilaudid] propoxyphene Allergy Rash/Hives Verified 10/10/24 16:07 [From Darvocet-N] tramadol Allergy Anaphylaxis Verified 10/10/24 16:07 ibuprofen [From Motrin] AdvReac unable to Verified 10/10/24 16:07 take due to kidney disease venom-honey bee AdvReac passes out Verified 10/10/24 16:07 [bee venom (honey bee)] Physical Exam Vitals: Vital Signs Temp Pulse Resp BP Pulse Ox 10/10/24 18:27 96 18 166/99 97 10/10/24 16:48 108 H 18 187/104 97 10/10/24 15:57 106 H 18 190/106 97 10/10/24 15:12 98.5 F 104 H 18 173/92 99 10/10/24 13:34 99.6 F 94 18 174/104 98 10/10/24 13:18 99.9 F H 10/10/24 12:45 89 18 98 10/10/24 11:36 100.1 F H 87 20 195/105 100 Intake and Output 10/10/24 10/10/24 10/10/24 06:59 14:59 22:59 Other: Weight 65.771 kg PHYSICAL EXAMINATION: Patient is lying in the bed, mild distress due to nausea vomiting and pain, awake alert and oriented.. HEENT: Normocephalic. Neck is supple. Pupils reactive. Nostrils clear. Oral cavity is moist. Neck reveals no JVD, carotid bruits, or thyromegaly. CHEST EXAMINATION: Trachea is central. Symmetrical expansion. Bibasilar diminished sounds. No wheezing. Otherwise lung armendariz clear to auscultation and percussion. CARDIAC: Normal S1, S2 with no gallops. No murmurs ABDOMEN: Soft. Bowel sounds normal. No organomegaly. No abdominal bruits. Extremities: reveal no edema. No clubbing or cyanosis Neurologically awake, alert, oriented x3 with well-coordinated movements. No gross focal deficits noted Skin: No rash or skin lesions. Psychiatric: Coperative. Nonsuicidal Musculoskeletal: No joint swelling or deformity. Normal range of motion. Results CBC & Chem 7: 10/11/24 12:01 10/11/24 05:47 Labs: Abnormal Lab Results - Last 24 Hours (Table) 10/10/24 10/10/24 10/10/24 Range/Units 12:18 12:18 12:18 WBC 14.1 H (3.8-10.6) k/uL RBC 2.92 L (3.80-5.40) m/uL Hgb 9.4 L (11.4-16.0) gm/dL Hct 28.9 L (34.0-46.0) % RDW 19.5 H (11.5-15.5) % Neutrophils # 12.8 H (1.3-7.7) k/uL Lymphocytes # 0.6 L (1.0-4.8) k/uL APTT 20.7 L (22.0-30.0) sec Sodium 128 L (137-145) mmol/L Potassium 6.3 H* (3.5-5.1) mmol/L Chloride 90 L (98-107) mmol/L BUN 44 H (7-17) mg/dL Creatinine 5.72 H (0.52-1.04) mg/dL Glucose 232 H (74-99) mg/dL POC Glucose (mg/dL) (70-110) mg/dL 10/10/24 10/10/24 10/10/24 Range/Units 15:42 16:42 17:47 WBC (3.8-10.6) k/uL RBC (3.80-5.40) m/uL Hgb (11.4-16.0) gm/dL Hct (34.0-46.0) % RDW (11.5-15.5) % Neutrophils # (1.3-7.7) k/uL Lymphocytes # (1.0-4.8) k/uL APTT (22.0-30.0) sec Sodium (137-145) mmol/L Potassium (3.5-5.1) mmol/L Chloride (98-107) mmol/L BUN (7-17) mg/dL Creatinine (0.52-1.04) mg/dL Glucose (74-99) mg/dL POC Glucose (mg/dL) 512 H* 440 H 352 H (70-110) mg/dL Thrombosis Risk Factor Assmnt - DVT/VTE Prophylaxis DVT/VTE Prophylaxis: Pharmacologic Prophylaxis ordered Assessment and Plan Assessment: Hypertensive emergency on admission Intractable nausea and vomiting Worsening shortness of breath and chest pain. Rule out ACS Acute CHF with preserved EF and volume overload. ESRD on hemodialysis 4 times per week M TTS Hyperglycemia with uncontrolled diabetes type 1 Hyperkalemia secondary to CKD History of CVA/TIA with no residual weakness Diabetic gastroparesis and diabetic peripheral neuropathy History of optic neuritis Hypothyroidism Anxiety/depression DVT prophylaxis with heparin subcu Plan: Patient will be continued on telemonitoring. Troponin x 1 negative. proBNP is elevated at 44,600. Nephrology was consulted for hemodialysis. Patient had full run of hemodialysis yesterday as per schedule. Start back on home blood pressure medications. Symptomatic management for nausea and vomiting.. Will continue with insulin sliding scale along with home regimen and follow-up closely. Prognosis is guarded with multimedical problems and comorbid conditions. Time with Patient: Greater than 30
[2024-10-11] MEDS ORDERED: methocarbamoL 750 MG TAB PO SCH (11:45)
[2024-10-11] MEDS ORDERED: VANCOMYCIN IV PER PHARMACY 1 EACH MISC MISCELLANE PRN (12:16)
[2024-10-11 12:37] LABS: Anisocytosis Slight; Basophils % (A) 0 %; Eosinophils # (A) 0.3 k/uL (0-0.7); Eosinophils % (A) 3 %; HCT 27.4 % (34.0-46.0); HGB 8.7 gm/dL (11.4-16.0); Hypochromasia Slight; Lymphocytes # (A) 0.3 k/uL (1.0-4.8); Lymphocytes % (A) 3 %; MCH 32.4 pg (25.0-35.0); MCHC 31.7 g/dL (31.0-37.0); MCV 102.4 fL (80.0-100.0); Macrocytosis Moderate; Mean Platelet Volume 7.8; Monocytes # (A) 0.2 k/uL (0-1.0); Monocytes % (A) 2 %; Neutrophils # (A) 9.3 k/uL (1.3-7.7); Neutrophils % (A) 91 %; Platelet Count 248 k/uL (150-450); RBC 2.68 m/uL (3.80-5.40); RDW 18.6 % (11.5-15.5); WBC 10.2 k/uL (3.8-10.6)
[2024-10-11] MEDS: CEFEPIME 1 GM in SODIUM CHLORIDE 0.9% 50 ML IVPB ONE (13:27)
[2024-10-11] MEDS: ONDANSETRON 4 MG/2 ML VIAL IVP PRN (13:30)
[2024-10-11] MEDS: VANCOMYCIN 1,250 MG in SODIUM CHLORIDE 0.9% 250 ML IVPB ONE (14:30)
[2024-10-11] MEDS: VANCOMYCIN IV PER PHARMACY 1 EACH MISC MISCELLANE STA (15:11)
[2024-10-11 16:33] LABS: Glucose,Whole Blood 303 mg/dL (70-110)
[2024-10-11] MEDS: HYDROcodone/APAP 7.5-325MG 1 EACH TAB PO PRN (17:17)
[2024-10-11] MEDS: DIVALPROEX ER 500 MG TAB.ER.24H PO SCH (17:17)
[2024-10-11 19:59] LABS: Glucose,Whole Blood 349 mg/dL (70-110)
[2024-10-12 06:08] LABS: Glucose,Whole Blood 167 mg/dL (70-110)
[2024-10-12] MEDS: CALCIUM ACETATE 667 MG TAB PO SCH (06:30)
[2024-10-12] MEDS: COLCHICINE 0.6 MG EACH PO SCH (08:50)
[2024-10-12] MEDS: ASPIRIN 81 MG PO SCH (08:51)
[2024-10-12 09:26] LABS: Anisocytosis Slight; Basophils # (A) 0.1 k/uL (0-0.2); Basophils % (A) 1 %; Eosinophils # (A) 0.6 k/uL (0-0.7); Eosinophils % (A) 10 %; HGB 8.5 gm/dL (11.4-16.0); Hypochromasia Slight; Lymphocytes # (A) 0.4 k/uL (1.0-4.8); Lymphocytes % (A) 7 %; MCH 31.8 pg (25.0-35.0); MCHC 31.7 g/dL (31.0-37.0); MCV 100.6 fL (80.0-100.0); Macrocytosis Moderate; Monocytes # (A) 0.3 k/uL (0-1.0); Monocytes % (A) 5 %; Neutrophils # (A) 4.7 k/uL (1.3-7.7); Neutrophils % (A) 77 %; Platelet Count 254 k/uL (150-450); RBC 2.68 m/uL (3.80-5.40); RDW 18.8 % (11.5-15.5); WBC 6.1 k/uL (3.8-10.6)
[2024-10-12 09:40] LABS: African American GFR (CKD) 11 (>60 ml/min/1.73 sqM); Anion Gap 16 mmol/L; Blood Urea Nitrogen 40 mg/dL (7-17); Calcium 8.4 mg/dL (8.4-10.2); Carbon Dioxide 25 mmol/L (22-30); Chloride 91 mmol/L (98-107); Glucose 163 mg/dL (74-99); Non-African American GFR(CKD) 10 (>60 ml/min/1.73 sqM); Potassium 4.9 mmol/L (3.5-5.1); Sodium 132 mmol/L (137-145)
[2024-10-12] MEDS: VANCOMYCIN 1,250 MG in SODIUM CHLORIDE 0.9% 250 ML IVPB ONE (09:45)
--- NOTE | 2024-10-12 10:37 | P.PN ---
Subjective patient is seen for follow-up for end-stage renal disease. Complaining of pain in the flank area bilaterally. No radiation to the groin. No history of kidney stones. Tolerated hemodialysis well yesterday.UF 4 L. Objective - Vital Signs Vital signs: Vital Signs Temp 98.1 F 10/12/24 08:00 Pulse 83 10/12/24 08:00 Resp 16 10/12/24 08:00 BP 153/79 10/12/24 08:00 Pulse Ox 98 10/12/24 08:00 FiO2 Intake & Output 10/11/24 10/12/24 10/12/24 18:59 06:59 18:59 Intake Total 5524 1380 240 Output Total 4400 Balance 1124 1380 240 Weight 64.7 kg 64.6 kg Intake: Oral 1124 1380 240 Hemodialysis 4400 Output: Hemodialysis 400 Hemodialysis Net Amount 4000 Other: Voiding Method Toilet Toilet # Voids 0 0 # Bowel Movements 0 - Exam patient is comfortable awake alert oriented 3. 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 - Labs CBC & Chem 7: 10/12/24 08:19 10/12/24 08:19 Labs: Abnormal Lab Results - Last 24 Hours (Table) 10/11/24 10/11/24 10/11/24 Range/Units 05:47 10:57 12:01 RBC 2.68 L (3.80-5.40) m/uL Hgb 8.7 L (11.4-16.0) gm/dL Hct 27.4 L (34.0-46.0) % MCV 102.4 H (80.0-100.0) fL RDW 18.6 H (11.5-15.5) % Neutrophils # 9.3 H (1.3-7.7) k/uL Lymphocytes # 0.3 L (1.0-4.8) k/uL Sodium (137-145) mmol/L Chloride (98-107) mmol/L BUN (7-17) mg/dL Creatinine (0.52-1.04) mg/dL Glucose (74-99) mg/dL POC Glucose (mg/dL) 203 H (70-110) mg/dL Procalcitonin 4.97 H (0.02-0.50) ng/mL 10/11/24 10/11/24 10/12/24 Range/Units 16:32 19:55 06:04 RBC (3.80-5.40) m/uL Hgb (11.4-16.0) gm/dL Hct (34.0-46.0) % MCV (80.0-100.0) fL RDW (11.5-15.5) % Neutrophils # (1.3-7.7) k/uL Lymphocytes # (1.0-4.8) k/uL Sodium (137-145) mmol/L Chloride (98-107) mmol/L BUN (7-17) mg/dL Creatinine (0.52-1.04) mg/dL Glucose (74-99) mg/dL POC Glucose (mg/dL) 303 H 349 H 167 H (70-110) mg/dL Procalcitonin (0.02-0.50) ng/mL 10/12/24 10/12/24 Range/Units 08:19 08:19 RBC 2.68 L (3.80-5.40) m/uL Hgb 8.5 L (11.4-16.0) gm/dL Hct 27.0 L (34.0-46.0) % MCV 100.6 H (80.0-100.0) fL RDW 18.8 H (11.5-15.5) % Neutrophils # (1.3-7.7) k/uL Lymphocytes # 0.4 L (1.0-4.8) k/uL Sodium 132 L (137-145) mmol/L Chloride 91 L (98-107) mmol/L BUN 40 H (7-17) mg/dL Creatinine 5.37 H (0.52-1.04) mg/dL Glucose 163 H (74-99) mg/dL POC Glucose (mg/dL) (70-110) mg/dL Procalcitonin (0.02-0.50) ng/mL Assessment and Plan Assessment: 1. End-stage renal disease on hemodialysis on Wednesday schedule along with extra treatment on Mondays for volume overload 2. Chest pain, atypical. No erythema noted around the catheter site. 3. CK D mineral bone disorder 4. Hypertension 5. Diabetic gastroparesis 6. Flank pain bilaterally. Unlikely to be related to nephrolithiasis. Will obtain ultrasound of the kidneys Plan: hemodialysis in a.m. follow-up on blood cultures Check ultrasound of the kidneys Continue current antihypertensive medications
[2024-10-12 11:29] LABS: Glucose,Whole Blood 249 mg/dL (70-110)
[2024-10-12] MEDS: CEFEPIME 1 GM in SODIUM CHLORIDE 0.9% 50 ML IVPB SCH (11:38)
--- NOTE | 2024-10-12 12:21 | US ---
EXAMINATION TYPE: US kidneys/renal and bladder DATE OF EXAM: 10/12/2024 Exam done portable COMPARISON: CT & US 2010 CLINICAL INDICATION: Female, 34 years old with history of r/o stones; TECHNIQUE: Grayscale imaging of the bilateral kidneys and urinary bladder: FINDINGS: EXAM MEASUREMENTS: Right Kidney: 9.2 x 3.5 x 3.8 cm Left Kidney: 9.1 x 4.1 x 3.7 cm Right Kidney: wnl Left Kidney: wnl Bladder: not fully distended There is no evidence for hydronephrosis at this point in time. No nephrolithiasis is seen. No deedee s are identified. The urinary bladder is anechoic. IMPRESSION: No evidence for obstructive uropathy or renal calculus. [facility], , 10/12/2024 12:19 PM
[2024-10-12 16:28] LABS: Glucose,Whole Blood 374 mg/dL (70-110)
[2024-10-12 19:52] LABS: Glucose,Whole Blood 442 mg/dL (70-110)
[2024-10-13 05:50] LABS: Glucose,Whole Blood 247 mg/dL (70-110)
--- NOTE | 2024-10-13 08:42 | P.CONS ---
History of Present Illness - Reason for Consult Consult date: 10/12/24 Fever, hemodialysis patient Requesting physician: Annette Read - Chief Complaint Chest pain x 1 day - History of Present Illness Patient is a 34-year-old female with a past medical history significant for diabetes mellitus seizure disorder hypertension reflux patient also with a history of end-stage renal disease on hemodialysis through the right subclavian permacatheter patient has been brought into the hospital for evaluation of chest pain that apparently started the morning of presentation to the hospital patient describes the pain to mostly around the catheter site right side of the chest and has been radiating to the neck describing intensity of the pain to be almost 8 out of 10 patient also complaining of shortness of breath and dizziness associated with it and did have an episode of nausea vomiting with no further vomiting repeat denies having abdominal pain did not have any diarrhea patient on presentation to the hospital did have a low-grade fever 100.1 F subsequently patient did spike a fever of 101.3 F yesterday afternoon probably this consultation patient did have a tachycardia but not hypotensive has been mildly hypoxic currently on a 3-day schedule oxygen patient did have a white count of 14.1 with a left shift did have elevated BUN and creatinine potassium is 5.3 liver enzymes are normal procalcitonin 4.97 influenza RSV COVID testing has been negative blood cultures obtained which are currently pending patient did have a chest x-ray correlate for CT with pulmonary vascular congestion mild interstitial edema changes not quite extensive as of 09/04/2024 patient has been started on cefepime and vancomycin infectious disease was consulted for further management of antibiotic therapy Review of Systems Positive point and negatives has been mentioned in the HPI, complete review of systems was performed and all other systems are negative Past Medical History Past Medical History: Diabetes Mellitus, GERD/Reflux, Hypertension, Renal Disease, Seizure Disorder, Thyroid Disorder Additional Past Medical History / Comment(s): Neuropathy, last seizure 2020, gastroparesis, headaches with dialysis, states "fast heart rate" since giving ., receives Hemodialysis Wednesday- and Saturdays at [facility] right chest hemodialysis catheter., severe HTN. patient awaiting Kidney and Pancrease Transplant. , states sometimes she has had stroke -like symptoms but no stroke., hx of c-diff 2013. History of Any Multi-Drug Resistant Organisms: C-DIFF Year Discovered:: unknown MDRO Source:: stool Past Surgical History: Adenoidectomy, Section, Cholecystectomy, Orthopedic Surgery, Tonsillectomy Additional Past Surgical History / Comment(s): 2 KNEE SCOPES, EAR TUBES, addit ional left knee surgery related to fracture, new port a cath sept , eye surgeries for diabetic retinopathy. Past Anesthesia/Blood Transfusion Reactions: Previous Problems w/ Anesthesia Additional Past Anesthesia/Blood Transfusion Reaction / Comm: confusion Past Psychological History: Anxiety, Depression Smoking Status: Current every day smoker Past Alcohol Use History: None Reported Past Drug Use History: Marijuana, Methamphetamine - Past Family History Father History Unknown: Yes Family Medical History: Unable to Obtain Mother History Unknown: Yes Family Medical History: No Reported History Grandfather History Unknown: Yes Family Medical History: Coronary Artery Disease (CAD) Additional Family Medical History / Comment(s): Diabetes mellitus type 2 Medications and Allergies Home Medications Medication Instructions Recorded Confirmed Type Docusate [Colace] 100 mg PO DAILY@0800 02/05/24 10/10/24 History Lidocaine 4% Patch 1 patch TOPICAL DAILY@0800 02/05/24 10/10/24 History Magnesium Hydroxide [Milk of 7,200 mg PO DAILY PRN 02/05/24 10/10/24 History Magnesia Concentrate] Ipratropium-Albuterol Nebulize 3 ml INHALATION RT-TID PRN each 02/14/24 Rx [Duoneb 0.5 mg-3 mg/3 ml Soln] polyethylene glycoL 3350 [Miralax] 17 gm PO AC-LUNCH #527 gm 02/14/24 10/10/24 Rx Acetaminophen [Tylenol] 650 mg PO Q4H PRN 02/18/24 10/10/24 History Biotene Dry Mouth/Throat 10 ml PO BID PRN 02/18/24 10/10/24 History Melatonin 1 mg PO HS tab 02/25/24 10/10/24 Rx Butalb/APAP/Caff 50-325-40Mg 1 tab PO Q4HR PRN 03/14/24 10/10/24 History [Fioricet 50-325-40] Darbepoetin Artur [Aranesp] 40 mcg SQ MO 03/14/24 10/10/24 History Loratadine [Claritin] 5 mg PO DAILY tab 03/30/24 10/10/24 Rx Aspirin 81 mg PO DAILY@0800 #30 tab 05/18/24 10/10/24 Rx Famotidine [Pepcid] 20 mg PO BID #60 tab 07/11/24 10/10/24 Rx Ondansetron [Zofran] 4 mg PO Q8HR PRN #20 tab 07/11/24 10/10/24 Rx Atorvastatin [Lipitor] 40 mg PO DIRECTED 08/14/24 10/10/24 History Divalproex ER [Depakote ER] 500 mg PO BID@0800,1700 08/14/24 10/10/24 History HYDROcodone/APAP 7.5-325MG [[place] 1 tab PO Q8H PRN 08/14/24 10/10/24 History 7.5-325] Levothyroxine Sodium [Synthroid] 175 mcg PO DAILY@0600 08/14/24 10/10/24 History Metoclopramide [Reglan] 5 mg PO AC-TID PRN 08/14/24 10/10/24 History Pantoprazole [Protonix] 40 mg PO DAILY@0600 08/14/24 10/10/24 History Sertraline [Zoloft] 200 mg PO DAILY@0800 08/14/24 10/10/24 History methocarbamoL [Robaxin-750] 750 mg PO DIRECTED 08/14/24 10/10/24 History traZODone HCL [Desyrel] 50 mg PO HS 08/14/24 10/10/24 History ALPRAZolam [Xanax] 0.25 mg PO BID PRN 09/04/24 10/10/24 History Calcium Acetate [PhosLo] 2,001 mg PO TID-W/MEALS 09/04/24 10/10/24 History Calcium Acetate [PhosLo] 667 mg PO DAILY PRN 09/04/24 10/10/24 History cloNIDine HCL [Catapres] 0.3 mg PO TID 09/04/24 10/10/24 History Colchicine [Colcrys] 0.3 mg PO DAILY #15 each 09/23/24 10/10/24 Rx Isosorbide Mononitrate ER [Imdur] 120 mg PO DAILY #60 tab 09/23/24 10/10/24 Rx Labetalol [Trandate] 500 mg PO BID #150 tab 09/23/24 10/10/24 Rx NIFEdipine XL [Procardia XL] 60 mg PO BID #60 tab 09/23/24 10/10/24 Rx hydrALAZINE HCL [Apresoline] 100 mg PO TID #90 tab 09/23/24 10/10/24 Rx Insulin Aspart [NovoLOG Flexpen] 4 units SQ AC-TID 10/10/24 10/10/24 History Insulin Aspart [NovoLOG Flexpen] See Protocol SQ ACHS 10/10/24 10/10/24 History Insulin Glargine,Hum.rec.anlog 12 units SQ BID 10/10/24 10/10/24 History [Lantus Solostar Pen] Triphrocaps 1mg Cap 1 cap PO DAILY 10/10/24 10/10/24 History Allergies Allergy/AdvReac Type Severity Reaction Status Date / Time hydromorphone HCl Allergy Anaphylaxis Verified 10/10/24 16:07 [From Dilaudid] propoxyphene Allergy Rash/Hives Verified 10/10/24 16:07 [From Darvocet-N] tramadol Allergy Anaphylaxis Verified 10/10/24 16:07 ibuprofen [From Motrin] AdvReac unable to Verified 10/10/24 16:07 take due to kidney disease venom-honey bee AdvReac passes out Verified 10/10/24 16:07 [bee venom (honey bee)] Physical Exam Vitals: Vital Signs Temp Pulse Resp BP Pulse Ox 10/12/24 08:00 98.1 F 83 16 153/79 98 10/12/24 04:45 98.5 F 83 16 149/78 97 10/12/24 02:00 86 16 10/11/24 23:10 98.4 F 86 16 123/64 95 10/11/24 20:00 86 16 10/11/24 19:35 98.1 F 86 16 109/68 100 10/11/24 17:15 97.5 F L 89 16 105/62 98 10/11/24 15:39 95 18 136/76 91 L 10/11/24 14:38 101.1 F H 10/11/24 14:00 105 H 18 10/11/24 13:56 101.3 F H 18 195/104 10/11/24 12:00 105 H 18 197/107 95 Intake and Output 10/11/24 10/12/24 10/12/24 22:59 06:59 14:59 Intake Total 932 1080 240 Balance 932 1080 240 Intake: Oral 932 1080 240 Other: Voiding Method Toilet Toilet Toilet # Voids 0 0 # Bowel Movements 0 Weight 64.6 kg GENERAL DESCRIPTION: Middle-aged female up in bed, no distress. No tachypnea or accessory muscle of respiration use. HEENT: Shows Pallor , no scleral icterus. Oral mucous membrane is dry. No pharyngeal erythema or thrush NECK: Trachea central, no thyromegaly. LUNGS: Unlabored breathing. Decreased breath sound at the base HEART: S1, S2, regular rate and rhythm. No loud murmur ABDOMEN: Soft, no tenderness , EXTREMITIES: No edema of feet. SKIN: No rash, no masses palpable. NEUROLOGICAL: The patient is awake, alert, oriented x3, mood and affect normal. Results CBC & Chem 7: 10/12/24 08:19 10/12/24 08:19 Labs: Abnormal Lab Results - Last 24 Hours (Table) 10/11/24 10/11/24 10/11/24 Range/Units 05:47 12:01 16:32 RBC 2.68 L (3.80-5.40) m/uL Hgb 8.7 L (11.4-16.0) gm/dL Hct 27.4 L (34.0-46.0) % MCV 102.4 H (80.0-100.0) fL RDW 18.6 H (11.5-15.5) % Neutrophils # 9.3 H (1.3-7.7) k/uL Lymphocytes # 0.3 L (1.0-4.8) k/uL Sodium (137-145) mmol/L Chloride (98-107) mmol/L BUN (7-17) mg/dL Creatinine (0.52-1.04) mg/dL Glucose (74-99) mg/dL POC Glucose (mg/dL) 303 H (70-110) mg/dL Procalcitonin 4.97 H (0.02-0.50) ng/mL 10/11/24 10/12/24 10/12/24 Range/Units 19:55 06:04 08:19 RBC 2.68 L (3.80-5.40) m/uL Hgb 8.5 L (11.4-16.0) gm/dL Hct 27.0 L (34.0-46.0) % MCV 100.6 H (80.0-100.0) fL RDW 18.8 H (11.5-15.5) % Neutrophils # (1.3-7.7) k/uL Lymphocytes # 0.4 L (1.0-4.8) k/uL Sodium (137-145) mmol/L Chloride (98-107) mmol/L BUN (7-17) mg/dL Creatinine (0.52-1.04) mg/dL Glucose (74-99) mg/dL POC Glucose (mg/dL) 349 H 167 H (70-110) mg/dL Procalcitonin (0.02-0.50) ng/mL 10/12/24 Range/Units 08:19 RBC (3.80-5.40) m/uL Hgb (11.4-16.0) gm/dL Hct (34.0-46.0) % MCV (80.0-100.0) fL RDW (11.5-15.5) % Neutrophils # (1.3-7.7) k/uL Lymphocytes # (1.0-4.8) k/uL Sodium 132 L (137-145) mmol/L Chloride 91 L (98-107) mmol/L BUN 40 H (7-17) mg/dL Creatinine 5.37 H (0.52-1.04) mg/dL Glucose 163 H (74-99) mg/dL POC Glucose (mg/dL) (70-110) mg/dL Procalcitonin (0.02-0.50) ng/mL Assessment and Plan (1) Sepsis Current Visit: Yes Status: Acute Code(s): A41.9 - SEPSIS, UNSPECIFIED ORGANISM SNOMED Code(s): 58224833 (2) Pneumonia Current Visit: Yes Status: Acute Code(s): J18.9 - PNEUMONIA, UNSPECIFIED ORGANISM SNOMED Code(s): 268235207 Plan: 1patient with sepsis in this patient who did have fever tachycardia elevated white count admission presentation has been mostly chest pain which seem to be around her catheter site however no redness has been noticed with a question of possible dialysis catheter infection versus pneumonia less likely but not entirely excluded is considered other obvious focus of infection. 2blood cultures will repeat from dialysis catheter and will wait for initial culture to finalize. 3we will keep the patient on cefepime and vancomycin while waiting for the culture to finalize. We will follow on clinical condition and cultures to further adjust medication if needed Thank you for this consultation we will follow the patient along with you Dictation was produced using [employer] dictation software. please excuse any grammatical, word or spelling errors. Time with Patient: Greater than 30
--- NOTE | 2024-10-13 08:52 | P.PN ---
Subjective patient is seen for follow-up for end-stage renal disease. Complaining of pain in the flank area bilaterally. No radiation to the groin. Ultrasound of the kidneys shows no evidence of nephrolithiasis. scheduled for hemodialysis today. Objective - Vital Signs Vital signs: Vital Signs Temp 98.2 F 10/12/24 20:00 Pulse 75 10/13/24 03:35 Resp 16 10/13/24 03:35 BP 117/61 10/13/24 03:35 Pulse Ox 92 L 10/13/24 03:35 FiO2 Intake & Output 10/12/24 10/13/24 10/13/24 18:59 06:59 18:59 Intake Total 1820 1080 236 Balance 1820 1080 236 Weight 65.3 kg Intake: Intake, IV Titration 300 Amount Cefepime 1 gm In Sodium 50 Chloride 0.9% 50 ml @ 12. 5 mls/hr IVPB DAILY [facility] Rx#:[id number] Vancomycin 1,250 mg In 250 Sodium Chloride 0.9% 250 ml @ 125 mls/hr IVPB ONCE ONE Rx#:[id number] Oral 1520 1080 236 Other: Voiding Method Toilet Toilet # Voids 0 0 - Exam patient is comfortable awake alert oriented 3. Examination of the heart S1 and S2 Examination the lungs bilateral breath sounds are heard Abdomen is soft nontender Examination of lower extremities shows no significant edema [employer] exam grossly intact - Labs CBC & Chem 7: 10/12/24 08:19 10/12/24 08:19 Labs: Abnormal Lab Results - Last 24 Hours (Table) 10/12/24 10/12/24 10/12/24 Range/Units 08:19 08:19 11:27 RBC 2.68 L (3.80-5.40) m/uL Hgb 8.5 L (11.4-16.0) gm/dL Hct 27.0 L (34.0-46.0) % MCV 100.6 H (80.0-100.0) fL RDW 18.8 H (11.5-15.5) % Lymphocytes # 0.4 L (1.0-4.8) k/uL Sodium 132 L (137-145) mmol/L Chloride 91 L (98-107) mmol/L BUN 40 H (7-17) mg/dL Creatinine 5.37 H (0.52-1.04) mg/dL Glucose 163 H (74-99) mg/dL POC Glucose (mg/dL) 249 H (70-110) mg/dL 10/12/24 10/12/24 10/13/24 Range/Units 16:26 19:47 05:48 RBC (3.80-5.40) m/uL Hgb (11.4-16.0) gm/dL Hct (34.0-46.0) % MCV (80.0-100.0) fL RDW (11.5-15.5) % Lymphocytes # (1.0-4.8) k/uL Sodium (137-145) mmol/L Chloride (98-107) mmol/L BUN (7-17) mg/dL Creatinine (0.52-1.04) mg/dL Glucose (74-99) mg/dL POC Glucose (mg/dL) 374 H 442 H 247 H (70-110) mg/dL Microbiology - Last 24 Hours (Table) 10/11/24 15:56 Nasal Screen MRSA/MSSA - Final Nasal Swab 10/11/24 10:27 Blood Culture - Preliminary Blood Assessment and Plan Assessment: 1. End-stage renal disease on hemodialysis on Wednesday schedule along with extra treatment on Mondays for volume overload 2. Chest pain, atypical. No erythema noted around the catheter site. 3. CK D mineral bone disorder 4. Hypertension 5. Diabetic gastroparesis 6. Flank pain bilaterally. No evidence of nephrolithiasis on ultrasound Plan: hemodialysis today and in a.m. Continue current antihypertensive medications
[2024-10-13 11:19] LABS: Glucose,Whole Blood 137 mg/dL (70-110)
--- NOTE | 2024-10-13 14:53 | P.PN ---
Subjective Progress Note Date: 10/13/24 Principal diagnosis: Reason for follow-up is fever possible pneumonia Patient is a 34-year-old female with a past medical history significant for diabetes mellitus seizure disorder hypertension reflux patient also with a history of end-stage renal disease on hemodialysis through the right subclavian permacatheter patient has been brought into the hospital for evaluat ion of chest pain along with shortness of breath patient also spiked a fever prompting this consultation. On today's evaluation that is 10/13/2024,the patient did have resolution of her fever and is afebrile today, patient is on 3 L nasal cannula supplemental oxygen however is still complaining of shortness of breath and chest pain she did have a cough not bringing up any sputum no vomiting or diarrhea has been reported. Patient did have random vancomycin of 30.3 blood culture currently pending MRSA nasal swab has been negative Objective - Vital Signs Vital signs: Vital Signs Temp 36.7 F L 10/13/24 09:10 Pulse 76 10/13/24 11:27 Resp 16 10/13/24 11:27 BP 126/73 10/13/24 11:27 Pulse Ox 94 L 10/13/24 11:27 FiO2 Intake & Output 10/12/24 10/13/24 10/13/24 18:59 06:59 18:59 Intake Total 1820 1080 4098 Output Total 3400 Balance 1820 1080 698 Weight 65.3 kg Intake: Intake, IV Titration 300 Amount Cefepime 1 gm In Sodium 50 Chloride 0.9% 50 ml @ 12. 5 mls/hr IVPB DAILY [facility] Rx#:[id number] Vancomycin 1,250 mg In 250 Sodium Chloride 0.9% 250 ml @ 125 mls/hr IVPB ONCE ONE Rx#:[id number] Oral 1520 1080 698 Hemodialysis 3400 Output: Hemodialysis 400 Hemodialysis Net Amount 3000 Other: Voiding Method Toilet Toilet # Voids 0 0 0 - Exam GENERAL DESCRIPTION: Middle-age female lying in bed in no distress RESPIRATORY SYSTEM: Unlabored breathing , decreased breath sounds at bases HEART: S1 S2 regular rate and rhythm , ABDOMEN: Soft , no tenderness EXTREMITIES: No edema feet - Labs CBC & Chem 7: 10/12/24 08:19 10/12/24 08:19 Labs: Abnormal Lab Results - Last 24 Hours (Table) 10/12/24 10/12/24 10/13/24 Range/Units 16:26 19:47 05:48 POC Glucose (mg/dL) 374 H 442 H 247 H (70-110) mg/dL 10/13/24 Range/Units 11:17 POC Glucose (mg/dL) 137 H (70-110) mg/dL Microbiology - Last 24 Hours (Table) 10/11/24 15:56 Nasal Screen MRSA/MSSA - Final Nasal Swab 10/11/24 10:27 Blood Culture - Preliminary Blood Assessment and Plan (1) Sepsis Current Visit: Yes Status: Acute Code(s): A41.9 - SEPSIS, UNSPECIFIED ORGANISM SNOMED Code(s): 27107411 (2) Pneumonia Current Visit: Yes Status: Acute Code(s): J18.9 - PNEUMONIA, UNSPECIFIED ORGANISM SNOMED Code(s): 671209941 Plan: 1patient with sepsis in this patient who did have fever tachycardia elevated white count admission presentation has been mostly chest pain which seem to be around her catheter site however no redness has been noticed with a question of possible dialysis catheter infection versus pneumonia less likely but not entirely excluded is considered other obvious focus of infection. 2blood cultures has been obtained from dialysis catheter this morning initial cultures currently pending 3we will keep the patient on cefepime and vancomycin while waiting for the workup to be completed however if the blood culture remains to be negative we will discontinue vancomycin Dictation was produced using [employer] dictation software. please excuse any grammatical, word or spelling errors. Time with Patient: Less than 30
[2024-10-13 16:11] LABS: Glucose,Whole Blood 282 mg/dL (70-110)
[2024-10-13 20:23] LABS: Glucose,Whole Blood 184 mg/dL (70-110)
[2024-10-13] MEDS: guaiFENesin-DM 100-10MG/5ML 10 ML CUP PO PRN (21:41)
[2024-10-13] MEDS: guaiFENesin-DM 100-10MG/5ML 10 ML CUP PO ONE (22:00)
--- NOTE | 2024-10-13 23:37 | P.PN ---
Subjective Progress Note Date: 10/11/24 Patient is a 4-year-old female with a past medical history of ESRD on hemodialysis 4 times a week with right subclavian permacath awaiting panel and liver transplant , hypertension, diabetes type 2 insulin-dependent, hypothyroidism, diabetic neuropathy, gastroparesis,, anxiety/depression, currently everyday smoker and history of marijuana and methamphetamine use. Patient was recently discharged from the hospital on 09/23/2024 after prolonged stay due to hypertensive emergency and pulmonary edema and fluid overload. Patient presented back to the hospital with complaints of chest pain 8 of 10 in severity started around 8:30 in the morning. Patient also states that the pain radiated to her neck associated shortness of breath and dizziness. Worsens with inspiration and is also complaining of nausea and vomiting started around 3 AM in the morning. Patient had hemodialysis done yesterday with full run. Denied any fever or chills. No cough or sputum production. No diarrhea. No complaint of abdominal pain. On admission blood pressure 195/105 pulse 87 respiration 20 and pulse ox 100% on room air. Laboratory data showed WBC 14.1 hemoglobin 9.4 and platelets 292 Sodium 128 potassium 6.3 with slight hemolysis, chloride 90 bicarb is 24 BUN 44 and creatinine 5.72 and blood sugar 232 and repeat was 512 liver enzymes not elevated proBNP 44,600 Flu in the ED RSV and COVID-19 PCR not detected. Chest x-ray showed correlate for CHF with pulmonary vascular congestion and mild interstitial edema. 10/11/2024 Patient is currently lying in bed. Awake alert and oriented. Still complains of pain. Also complains of nausea. Patient is undergoingtoday. Patient had patient developed fever with Tmax of 101.3 morning. Blood cultures were sent. Patient was started on broad-spectrum antibiotics and ID consult placed. Chest x-ray correlate for CHF with pulmonary vascular congestion and mild interstitial edema. Laboratory showed sodium 130 potassium 5.3 chloride 27 BUN 59 creatinine 7.69 and blood sugar is 64. Procalcitonin level 4.97. Nephrology is on board. Current medications reviewed. Objective - Vital Signs Vital signs: Vital Signs Temp 101.1 F H 10/11/24 14:38 Pulse 95 10/11/24 15:39 Resp 18 10/11/24 15:39 BP 136/76 10/11/24 15:39 Pulse Ox 91 L 10/11/24 15:39 FiO2 Intake & Output 10/10/24 10/11/24 10/11/24 18:59 06:59 18:59 Intake Total 4892 Output Total 4400 Balance 492 Weight 65.771 kg 64.7 kg 64.7 kg Intake: Oral 492 Hemodialysis 4400 Output: Hemodialysis 400 Hemodialysis Net Amount 4000 Other: Voiding Method Toilet Toilet # Voids 1 0 # Bowel Movements 0 - Exam PHYSICAL EXAMINATION: Patient is lying in the bed, no acute distress, awake alert and oriented but a nxious... HEENT: Normocephalic. Neck is supple. Pupils reactive. Nostrils clear. Oral cavity is moist. Neck reveals no JVD, carotid bruits, or thyromegaly. CHEST EXAMINATION: Trachea is central. Symmetrical expansion. Left basilar minimal crackles. No wheezing. Otherwise lung armendariz clear to auscultation and percussion. CARDIAC: Normal S1, S2 with no gallops. No murmurs ABDOMEN: Soft. Bowel sounds normal. No organomegaly. No abdominal bruits. Extremities: reveal no edema. No clubbing or cyanosis Neurologically awake, alert, oriented x3 with well-coordinated movements. No gross focal deficits noted Skin: No rash or skin lesions. Psychiatric: Coperative. Nonsuicidal Musculoskeletal: No joint swelling or deformity. Normal range of motion. - Labs CBC & Chem 7: 10/12/24 08:19 10/12/24 08:19 Labs: Abnormal Lab Results - Last 24 Hours (Table) 10/10/24 10/10/24 10/10/24 Range/Units 15:42 16:42 17:47 RBC (3.80-5.40) m/uL Hgb (11.4-16.0) gm/dL Hct (34.0-46.0) % MCV (80.0-100.0) fL RDW (11.5-15.5) % Neutrophils # (1.3-7.7) k/uL Lymphocytes # (1.0-4.8) k/uL Sodium (137-145) mmol/L Potassium (3.5-5.1) mmol/L Chloride (98-107) mmol/L BUN (7-17) mg/dL Creatinine (0.52-1.04) mg/dL Glucose (74-99) mg/dL POC Glucose (mg/dL) 512 H* 440 H 352 H (70-110) mg/dL Phosphorus (2.5-4.5) mg/dL Total Protein (6.3-8.2) g/dL 10/10/24 10/10/24 10/11/24 Range/Units 20:40 22:54 05:47 RBC (3.80-5.40) m/uL Hgb (11.4-16.0) gm/dL Hct (34.0-46.0) % MCV (80.0-100.0) fL RDW (11.5-15.5) % Neutrophils # (1.3-7.7) k/uL Lymphocytes # (1.0-4.8) k/uL Sodium 130 L (137-145) mmol/L Potassium 5.3 H 5.3 H (3.5-5.1) mmol/L Chloride 92 L (98-107) mmol/L BUN 59 H (7-17) mg/dL Creatinine 7.69 H* (0.52-1.04) mg/dL Glucose 58 L (74-99) mg/dL POC Glucose (mg/dL) 210 H (70-110) mg/dL Phosphorus 8.0 H (2.5-4.5) mg/dL Total Protein 6.2 L (6.3-8.2) g/dL 10/11/24 10/11/24 10/11/24 Range/Units 05:51 06:11 10:57 RBC (3.80-5.40) m/uL Hgb (11.4-16.0) gm/dL Hct (34.0-46.0) % MCV (80.0-100.0) fL RDW (11.5-15.5) % Neutrophils # (1.3-7.7) k/uL Lymphocytes # (1.0-4.8) k/uL Sodium (137-145) mmol/L Potassium (3.5-5.1) mmol/L Chloride (98-107) mmol/L BUN (7-17) mg/dL Creatinine (0.52-1.04) mg/dL Glucose (74-99) mg/dL POC Glucose (mg/dL) 64 L 64 L 203 H (70-110) mg/dL Phosphorus (2.5-4.5) mg/dL Total Protein (6.3-8.2) g/dL 10/11/24 Range/Units 12:01 RBC 2.68 L (3.80-5.40) m/uL Hgb 8.7 L (11.4-16.0) gm/dL Hct 27.4 L (34.0-46.0) % MCV 102.4 H (80.0-100.0) fL RDW 18.6 H (11.5-15.5) % Neutrophils # 9.3 H (1.3-7.7) k/uL Lymphocytes # 0.3 L (1.0-4.8) k/uL Sodium (137-145) mmol/L Potassium (3.5-5.1) mmol/L Chloride (98-107) mmol/L BUN (7-17) mg/dL Creatinine (0.52-1.04) mg/dL Glucose (74-99) mg/dL POC Glucose (mg/dL) (70-110) mg/dL Phosphorus (2.5-4.5) mg/dL Total Protein (6.3-8.2) g/dL Assessment and Plan Assessment: Fever Hypertensive emergency on admission Intractable nausea and vomiting Worsening shortness of breath and chest pain. Likely due to fluid overload. Ruled out ACS Acute CHF with preserved EF and volume overload. ESRD on hemodialysis 4 times per week M TTS Hyperglycemia with uncontrolled diabetes type 1 Hyperkalemia secondary to CKD History of CVA/TIA with no residual weakness Diabetic gastroparesis and diabetic peripheral neuropathy History of optic neuritis Hypothyroidism Anxiety/depression DVT prophylaxis with heparin subcu Plan: Patient will be continued on telemonitoring. proBNP is elevated at 44,600. Patient was seen by nephrology. Patient is scheduled for hemodialysis today. Due to new onset fever blood cultures were sent. Patient was started on antibiotics vancomycin and cefepime. Patient had prior history of catheter infection. Start back on home blood pressure medications. Symptomatic management for nausea and vomiting.. Will continue with insulin sliding scale along with home regimen and follow-up closely. Prognosis is guarded with multimedical problems and comorbid conditions. Time with Patient: Greater than 30
--- NOTE | 2024-10-13 23:41 | P.PN ---
Subjective Progress Note Date: 10/12/24 Patient is a 4-year-old female with a past medical history of ESRD on hemodialysis 4 times a week with right subclavian permacath awaiting panel and liver transplant , hypertension, diabetes type 2 insulin-dependent, hypothyroidism, diabetic neuropathy, gastroparesis,, anxiety/depression, currently everyday smoker and history of marijuana and methamphetamine use. Patient was recently discharged from the hospital on 09/23/2024 after prolonged stay due to hypertensive emergency and pulmonary edema and fluid overload. Patient presented back to the hospital with complaints of chest pain 8 of 10 in severity started around 8:30 in the morning. Patient also states that the pain radiated to her neck associated shortness of breath and dizziness. Worsens with inspiration and is also complaining of nausea and vomiting started around 3 AM in the morning. Patient had hemodialysis done yesterday with full run. Denied any fever or chills. No cough or sputum production. No diarrhea. No complaint of abdominal pain. On admission blood pressure 195/105 pulse 87 respiration 20 and pulse ox 100% on room air. Laboratory data showed WBC 14.1 hemoglobin 9.4 and platelets 292 Sodium 128 potassium 6.3 with slight hemolysis, chloride 90 bicarb is 24 BUN 44 and creatinine 5.72 and blood sugar 232 and repeat was 512 liver enzymes not elevated proBNP 44,600 Flu in the ED RSV and COVID-19 PCR not detected. Chest x-ray showed correlate for CHF with pulmonary vascular congestion and mild interstitial edema. 10/11/2024 Patient is currently lying in bed. Awake alert and oriented. Still complains of pain. Also complains of nausea. Patient is undergoingtoday. Patient had patient developed fever with Tmax of 101.3 morning. Blood cultures were sent. Patient was started on broad-spectrum antibiotics and ID consult placed. Chest x-ray correlate for CHF with pulmonary vascular congestion and mild interstitial edema. Laboratory showed sodium 130 potassium 5.3 chloride 27 BUN 59 creatinine 7.69 and blood sugar is 64. Procalcitonin level 4.97. Nephrology is on board. 10/12/2024 Patient is resting in the bed. Feels better. No complaints of chest pain. Worsening shortness of breath. Patient also states that she has been having right-sided neck pain at the catheter site. Patient has been afebrile today. Still complains of nausea and occasional chest pains. Laboratory showed WBC 6.1 hemoglobin 8.1 platelets 254 sodium 132 potassium 4.9 chloride 91 bicarb is 25 BUN 40 and creatinine 5.37 and blood sugar 163. Patient is being on antibiotics cefepime and vancomycin. Blood cultures negati ve so far. ID and nephrology is on board. Current medications reviewed. Objective - Vital Signs Vital signs: Vital Signs Temp 98.1 F 10/12/24 08:00 Pulse 83 10/12/24 08:00 Resp 16 10/12/24 08:00 BP 153/79 10/12/24 08:00 Pulse Ox 98 10/12/24 08:00 FiO2 Intake & Output 10/11/24 10/12/24 10/12/24 18:59 06:59 18:59 Intake Total 5524 1380 240 Output Total 4400 Balance 1124 1380 240 Weight 64.7 kg 64.6 kg Intake: Oral 1124 1380 240 Hemodialysis 4400 Output: Hemodialysis 400 Hemodialysis Net Amount 4000 Other: Voiding Method Toilet Toilet # Voids 0 0 # Bowel Movements 0 - Exam PHYSICAL EXAMINATION: Patient is lying in the bed, no acute distress, awake alert and oriented but anxious... HEENT: Normocephalic. Neck is supple. Tenderness over the right neck at the catheter site. No surrounding redness or discharge noted. Pupils reactive. Nostrils clear. Oral cavity is moist. Neck reveals no JVD, carotid bruits, or thyromegaly. CHEST EXAMINATION: Trachea is central. Symmetrical expansion. Left basilar minimal crackles. No wheezing. Otherwise lung armendariz clear to auscultation and percussion. CARDIAC: Normal S1, S2 with no gallops. No murmurs ABDOMEN: Soft. Bowel sounds normal. No organomegaly. No abdominal bruits. Extremities: reveal no edema. No clubbing or cyanosis Neurologically awake, alert, oriented x3 with well-coordinated movements. No gross focal deficits noted Skin: No rash or skin lesions. Psychiatric: Coperative. Nonsuicidal Musculoskeletal: No joint swelling or deformity. Normal range of motion. - Labs CBC & Chem 7: 10/12/24 08:19 10/12/24 08:19 Labs: Abnormal Lab Results - Last 24 Hours (Table) 10/11/24 10/11/24 10/11/24 Range/Units 05:47 10:57 12:01 RBC 2.68 L (3.80-5.40) m/uL Hgb 8.7 L (11.4-16.0) gm/dL Hct 27.4 L (34.0-46.0) % MCV 102.4 H (80.0-100.0) fL RDW 18.6 H (11.5-15.5) % Neutrophils # 9.3 H (1.3-7.7) k/uL Lymphocytes # 0.3 L (1.0-4.8) k/uL Sodium (137-145) mmol/L Chloride (98-107) mmol/L BUN (7-17) mg/dL Creatinine (0.52-1.04) mg/dL Glucose (74-99) mg/dL POC Glucose (mg/dL) 203 H (70-110) mg/dL Procalcitonin 4.97 H (0.02-0.50) ng/mL 10/11/24 10/11/24 10/12/24 Range/Units 16:32 19:55 06:04 RBC (3.80-5.40) m/uL Hgb (11.4-16.0) gm/dL Hct (34.0-46.0) % MCV (80.0-100.0) fL RDW (11.5-15.5) % Neutrophils # (1.3-7.7) k/uL Lymphocytes # (1.0-4.8) k/uL Sodium (137-145) mmol/L Chloride (98-107) mmol/L BUN (7-17) mg/dL Creatinine (0.52-1.04) mg/dL Glucose (74-99) mg/dL POC Glucose (mg/dL) 303 H 349 H 167 H (70-110) mg/dL Procalcitonin (0.02-0.50) ng/mL 10/12/24 10/12/24 Range/Units 08:19 08:19 RBC 2.68 L (3.80-5.40) m/uL Hgb 8.5 L (11.4-16.0) gm/dL Hct 27.0 L (34.0-46.0) % MCV 100.6 H (80.0-100.0) fL RDW 18.8 H (11.5-15.5) % Neutrophils # (1.3-7.7) k/uL Lymphocytes # 0.4 L (1.0-4.8) k/uL Sodium 132 L (137-145) mmol/L Chloride 91 L (98-107) mmol/L BUN 40 H (7-17) mg/dL Creatinine 5.37 H (0.52-1.04) mg/dL Glucose 163 H (74-99) mg/dL POC Glucose (mg/dL) (70-110) mg/dL Procalcitonin (0.02-0.50) ng/mL Assessment and Plan Assessment: Fever. Possible catheter site infection versus pneumonia less likely. Hypertensive emergency on admission Intractable nausea and vomiting Worsening shortness of breath and chest pain. Likely due to fluid overload. Ruled out ACS Acute CHF with preserved EF and volume overload. ESRD on hemodialysis 4 times per week M TTS Hyperglycemia with uncontrolled diabetes type 1 Hyperkalemia secondary to CKD History of CVA/TIA with no residual weakness Diabetic gastroparesis and diabetic peripheral neuropathy History of optic neuritis Hypothyroidism Anxiety/depression DVT prophylaxis with heparin subcu Plan: Patient will be continued on telemonitoring. proBNP is elevated at 44,600. Patient was seen by nephrology. Underwent hemodialysis yesterday.. Follow-up blood cultures. Patient will be continued on antibiotics vancomycin and cefepime. Patient had prior history of catheter infection. Start back on home blood pressure medications. Symptomatic management for nausea and vomiting.. Will continue with insulin sliding scale along with home regimen and follow-up closely. Prognosis is guarded with multimedical problems and comorbid conditions. Time with Patient: Greater than 30
--- NOTE | 2024-10-13 23:44 | P.PN ---
Subjective Progress Note Date: 10/13/24 Patient is a 4-year-old female with a past medical history of ESRD on hemodialysis 4 times a week with right subclavian permacath awaiting panel and liver transplant , hypertension, diabetes type 2 insulin-dependent, hypothyroidism, diabetic neuropathy, gastroparesis,, anxiety/depression, currently everyday smoker and history of marijuana and methamphetamine use. Patient was recently discharged from the hospital on 09/23/2024 after prolonged stay due to hypertensive emergency and pulmonary edema and fluid overload. Patient presented back to the hospital with complaints of chest pain 8 of 10 in severity started around 8:30 in the morning. Patient also states that the pain radiated to her neck associated shortness of breath and dizziness. Worsens with inspiration and is also complaining of nausea and vomiting started around 3 AM in the morning. Patient had hemodialysis done yesterday with full run. Denied any fever or chills. No cough or sputum production. No diarrhea. No complaint of abdominal pain. On admission blood pressure 195/105 pulse 87 respiration 20 and pulse ox 100% on room air. Laboratory data showed WBC 14.1 hemoglobin 9.4 and platelets 292 Sodium 128 potassium 6.3 with slight hemolysis, chloride 90 bicarb is 24 BUN 44 and creatinine 5.72 and blood sugar 232 and repeat was 512 liver enzymes not elevated proBNP 44,600 Flu in the ED RSV and COVID-19 PCR not detected. Chest x-ray showed correlate for CHF with pulmonary vascular congestion and mild interstitial edema. 10/11/2024 Patient is currently lying in bed. Awake alert and oriented. Still complains of pain. Also complains of nausea. Patient is undergoingtoday. Patient had patient developed fever with Tmax of 101.3 morning. Blood cultures were sent. Patient was started on broad-spectrum antibiotics and ID consult placed. Chest x-ray correlate for CHF with pulmonary vascular congestion and mild interstitial edema. Laboratory showed sodium 130 potassium 5.3 chloride 27 BUN 59 creatinine 7.69 and blood sugar is 64. Procalcitonin level 4.97. Nephrology is on board. 10/12/2024 Patient is resting in the bed. Feels better. No complaints of chest pain. Worsening shortness of breath. Patient also states that she has been having right-sided neck pain at the catheter site. Patient has been afebrile today. Still complains of nausea and occasional chest pains. Laboratory showed WBC 6.1 hemoglobin 8.1 platelets 254 sodium 132 potassium 4.9 chloride 91 bicarb is 25 BUN 40 and creatinine 5.37 and blood sugar 163. Patient is being on antibiotics cefepime and vancomycin. Blood cultures negati ve so far. ID and nephrology is on board. 10/13/2024 Patient is lying in the bed. Awake alert and oriented. Patient states that she is not feeling well. Complains of pain at the catheter site over the right side of neck. Patient has been afebrile. Remains on broad-spectrum antibiotics. Otherwise blood sugars are fluctuating. Continued on insulin sliding scale along with insulin regimen with Levemir. Patient also complaining of nausea. Scheduled for hemodialysis today. Laboratory data reviewed. Current medications reviewed. Objective - Vital Signs Vital signs: Vital Signs Temp 98.3 F 10/13/24 23:18 Pulse 77 10/13/24 23:18 Resp 16 10/13/24 23:18 BP 152/80 10/13/24 23:18 Pulse Ox 99 10/13/24 23:18 FiO2 Intake & Output 10/13/24 10/13/24 10/14/24 06:59 18:59 06:59 Intake Total 1080 4098 Output Total 3400 Balance 1080 698 Weight 65.3 kg Intake: Oral 1080 698 Hemodialysis 3400 Output: Hemodialysis 400 Hemodialysis Net Amount 3000 Other: Voiding Method Toilet Toilet # Voids 0 0 - Exam PHYSICAL EXAMINATION: Patient is lying in the bed, no acute distress, awake alert and oriented but anxious... HEENT: Normocephalic. Neck is supple. Tenderness over the right neck at the ca theter site. No surrounding redness or discharge noted. Pupils reactive. Nostrils clear. Oral cavity is moist. Neck reveals no JVD, carotid bruits, or thyromegaly. CHEST EXAMINATION: Trachea is central. Symmetrical expansion. Left basilar minimal crackles. No wheezing. Otherwise lung armendariz clear to auscultation and percussion. CARDIAC: Normal S1, S2 with no gallops. No murmurs ABDOMEN: Soft. Bowel sounds normal. No organomegaly. No abdominal bruits. Extremities: reveal no edema. No clubbing or cyanosis Neurologically awake, alert, oriented x3 with well-coordinated movements. No gr oss focal deficits noted Skin: No rash or skin lesions. Psychiatric: Coperative. Nonsuicidal Musculoskeletal: No joint swelling or deformity. Normal range of motion. - Labs CBC & Chem 7: 10/12/24 08:19 10/12/24 08:19 Labs: Abnormal Lab Results - Last 24 Hours (Table) 10/13/24 10/13/24 10/13/24 Range/Units 05:48 11:17 16:10 POC Glucose (mg/dL) 247 H 137 H 282 H (70-110) mg/dL 10/13/24 Range/Units 20:21 POC Glucose (mg/dL) 184 H (70-110) mg/dL Microbiology - Last 24 Hours (Table) 10/11/24 10:27 Blood Culture - Preliminary Blood 10/11/24 15:56 Nasal Screen MRSA/MSSA - Final Nasal Swab Assessment and Plan Assessment: Fever. Possible catheter site infection with tenderness of the right side of the neck. Versus pneumonia less likely. Patient has been afebrile last 36 hours. Hypertensive emergency on admission Intractable nausea and vomiting Worsening shortness of breath and chest pain. Likely due to fluid overload. Ruled out ACS Acute CHF with preserved EF and volume overload. ESRD on hemodialysis 4 times per week M TTS Hyperglycemia with uncontrolled diabetes type 1 Hyperkalemia secondary to CKD History of CVA/TIA with no residual weakness Diabetic gastroparesis and diabetic peripheral neuropathy History of optic neuritis Hypothyroidism Anxiety/depression DVT prophylaxis with heparin subcu Plan: Patient will be continued on telemonitoring. Patient is scheduled for hemodialysis today. Nephrology is on board. Follow-up blood cultures. Blood cultures were sent from catheter. Patient will be continued on antibiotics vancomycin and cefepime. Patient had prior history of catheter infection. Start back on home blood pressure medications. Symptomatic management for nausea and vomiting.. Will continue with insulin sliding scale along with home regimen and follow-up closely. Prognosis is guarded with multimedical problems and comorbid conditions. Time with Patient: Greater than 30
[2024-10-14 02:24] LABS: Glucose,Whole Blood 45 mg/dL (70-110)
[2024-10-14 02:24] LABS: Glucose,Whole Blood 46 mg/dL (70-110)
[2024-10-14 02:44] LABS: Glucose,Whole Blood 57 mg/dL (70-110)
[2024-10-14 03:05] LABS: Glucose,Whole Blood 73 mg/dL (70-110)
[2024-10-14 06:03] LABS: Glucose,Whole Blood 85 mg/dL (70-110)
[2024-10-14 06:43] LABS: Anisocytosis Slight; Basophils % (A) 1 %; Eosinophils # (A) 0.8 k/uL (0-0.7); Eosinophils % (A) 14 %; HCT 24.6 % (34.0-46.0); HGB 7.8 gm/dL (11.4-16.0); Hypochromasia Moderate; Lymphocytes # (A) 0.4 k/uL (1.0-4.8); Lymphocytes % (A) 8 %; MCH 32.1 pg (25.0-35.0); MCHC 31.8 g/dL (31.0-37.0); MCV 101.1 fL (80.0-100.0); Macrocytosis Moderate; Monocytes # (A) 0.2 k/uL (0-1.0); Monocytes % (A) 4 %; Neutrophils # (A) 3.7 k/uL (1.3-7.7); Neutrophils % (A) 71 %; Platelet Count 195 k/uL (150-450); RBC 2.43 m/uL (3.80-5.40); RDW 17.9 % (11.5-15.5); WBC 5.2 k/uL (3.8-10.6)
[2024-10-14 06:48] LABS: African American GFR (CKD) 11 (>60 ml/min/1.73 sqM); Anion Gap 6 mmol/L; Blood Urea Nitrogen 30 mg/dL (7-17); Calcium 8.5 mg/dL (8.4-10.2); Carbon Dioxide 30 mmol/L (22-30); Chloride 97 mmol/L (98-107); Glucose 83 mg/dL (74-99); Non-African American GFR(CKD) 9 (>60 ml/min/1.73 sqM); Phosphorus 5.5 mg/dL (2.5-4.5); Potassium 4.8 mmol/L (3.5-5.1); Sodium 133 mmol/L (137-145)
[2024-10-14 06:53] LABS: Vancomycin,Random 20.3 ug/mL
--- NOTE | 2024-10-14 09:15 | P.PN ---
Subjective Patient is seen in follow-up for end-stage renal disease. Underwent hemodialysis yesterday with 3 L ultrafiltration. Blood pressure controlled. On nasal cannula. Vital signs are stable. General: No acute distress. HEENT: Head exam is unremarkable. On nasal cannula. LUNGS: No audible rhonchi or wheezes. HEART: Rate and Rhythm are regular. ABDOMEN: Nontender. EXTREMITITES: No edema. Objective - Vital Signs Vital signs: Vital Signs Temp 97.4 F L 10/14/24 03:01 Pulse 75 10/14/24 03:01 Resp 16 10/14/24 03:01 BP 118/70 10/14/24 03:01 Pulse Ox 99 10/14/24 03:01 FiO2 Intake & Output 10/13/24 10/14/24 10/14/24 18:59 06:59 18:59 Intake Total 4098 740 480 Output Total 3400 Balance 698 740 480 Weight 63.5 kg Intake: Oral 698 740 480 Hemodialysis 3400 Output: Hemodialysis 400 Hemodialysis Net Amount 3000 Other: Voiding Method Toilet # Voids 0 - Labs CBC & Chem 7: 10/14/24 05:58 10/14/24 05:58 Labs: Abnormal Lab Results - Last 24 Hours (Table) 10/13/24 10/13/24 10/13/24 Range/Units 11: 16:10 20:21 RBC (3.80-5.40) m/uL Hgb (11.4-16.0) gm/dL Hct (34.0-46.0) % MCV (80.0-100.0) fL RDW (11.5-15.5) % Lymphocytes # (1.0-4.8) k/uL Eosinophils # (0-0.7) k/uL Sodium (137-145) mmol/L Chloride (98-107) mmol/L BUN (7-17) mg/dL Creatinine (0.52-1.04) mg/dL POC Glucose (mg/dL) 137 H 282 H 184 H (70-110) mg/dL Phosphorus (2.5-4.5) mg/dL 10/14/24 10/14/24 10/14/24 Range/Units 02:20 02:21 02:41 RBC (3.80-5.40) m/uL Hgb (11.4-16.0) gm/dL Hct (34.0-46.0) % MCV (80.0-100.0) fL RDW (11.5-15.5) % Lymphocytes # (1.0-4.8) k/uL Eosinophils # (0-0.7) k/uL Sodium (137-145) mmol/L Chloride (98-107) mmol/L BUN (7-17) mg/dL Creatinine (0.52-1.04) mg/dL POC Glucose (mg/dL) 45 L* 46 L* 57 L (70-110) mg/dL Phosphorus (2.5-4.5) mg/dL 10/14/24 10/14/24 Range/Units 05:58 05:58 RBC 2.43 L (3.80-5.40) m/uL Hgb 7.8 L (11.4-16.0) gm/dL Hct 24.6 L (34.0-46.0) % MCV 101.1 H (80.0-100.0) fL RDW 17.9 H (11.5-15.5) % Lymphocytes # 0.4 L (1.0-4.8) k/uL Eosinophils # 0.8 H (0-0.7) k/uL Sodium 133 L (137-145) mmol/L Chloride 97 L (98-107) mmol/L BUN 30 H (7-17) mg/dL Creatinine 5.50 H (0.52-1.04) mg/dL POC Glucose (mg/dL) (70-110) mg/dL Phosphorus 5.5 H (2.5-4.5) mg/dL Microbiology - Last 24 Hours (Table) 10/11/24 10:27 Blood Culture - Preliminary Blood Assessment and Plan Plan: Assessment: 1. End-stage renal disease maintained on hemodialysis on Wednesday. Has permacath. 2. Chest pain. She is concerned that the dialysis catheter is a source of the pain. 3. Hypertension with chronic kidney disease. Stable. 4. Diabetes mellitus. 5. Chronic kidney disease mineral bone disease maintained on PhosLo. 6. Anemia of chronic kidney disease. Plan: Hemodialysis today. Check iron studies. Vascular surgery consulted for evaluation of permacath. Blood culture negative so far.
[2024-10-14 11:19] LABS: Glucose,Whole Blood 174 mg/dL (70-110)
--- NOTE | 2024-10-14 13:39 | P.PN ---
Subjective Progress Note Date: 10/14/24 Patient is a 34-year-old female with a past medical history of ESRD on hemodialysis 4 times a week with right subclavian permacath awaiting panel and liver transplant , hypertension, diabetes type 2 insulin-dependent, hypothyroidism, diabetic neuropathy, gastroparesis,, anxiety/depression, currently everyday smoker and history of marijuana and methamphetamine use. Patient was recently discharged from the hospital on 09/23/2024 after prolonged stay due to hypertensive emergency and pulmonary edema and fluid overload. Patient presented back to the hospital with complaints of chest pain 8 of 10 in severity started around 8:30 in the morning. Patient also states that the pain radiated to her neck associated shortness of breath and dizziness. Worsens with inspiration and is also complaining of nausea and vomiting started around 3 AM in the morning. Patient had hemodialysis done yesterday with full run. Denied any fever or chills. No cough or sputum production. No diarrhea. No complaint of abdominal pain. On admission blood pressure 195/105 pulse 87 respiration 20 and pulse ox 100% on room air. Laboratory data showed WBC 14.1 hemoglobin 9.4 and platelets 292 Sodium 128 potassium 6.3 with slight hemolysis, chloride 90 bicarb is 24 BUN 44 and creatinine 5.72 and blood sugar 232 and repeat was 512 liver enzymes not elevated proBNP 44,600 Flu in the ED RSV and COVID-19 PCR not detected. Chest x-ray showed correlate for CHF with pulmonary vascular congestion and mild interstitial edema. 10/11/2024 Patient is currently lying in bed. Awake alert and oriented. Still complains of pain. Also complains of nausea. Patient is undergoingtoday. Patient had patient developed fever with Tmax of 101.3 morning. Blood cultures were sent. Patient was started on broad-spectrum antibiotics and ID consult placed. Chest x-ray correlate for CHF with pulmonary vascular congestion and mild interstitial edema. Laboratory showed sodium 130 potassium 5.3 chloride 27 BUN 59 creatinine 7.69 and blood sugar is 64. Procalcitonin level 4.97. Nephrology is on board. 10/12/2024 Patient is resting in the bed. Feels better. No complaints of chest pain. Worsening shortness of breath. Patient also states that she has been having right-sided neck pain at the catheter site. Patient has been afebrile today. Still complains of nausea and occasional chest pains. Laboratory showed WBC 6.1 hemoglobin 8.1 platelets 254 sodium 132 potassium 4.9 chloride 91 bicarb is 25 BUN 40 and creatinine 5.37 and blood sugar 163. Patient is being on antibiotics cefepime and vancomycin. Blood cultures negat vicki so far. ID and nephrology is on board. 10/13/2024 Patient is lying in the bed. Awake alert and oriented. Patient states that she is not feeling well. Complains of pain at the catheter site over the right side of neck. Patient has been afebrile. Remains on broad-spectrum antibiotics. Otherwise blood sugars are fluctuating. Continued on insulin sliding scale along with insulin regimen with Levemir. Patient also complaining of nausea. Scheduled for hemodialysis today. Laboratory data reviewed. 10/14. Patient seen and examined. Blood work this morning showed WBC 5.2, hemoglobin 7.8, sodium 133, potassium 4.8, BUN 30, creatinine 5.50. Complaining of right-sided neck pain at the site of dialysis catheter REVIEW OF SYSTEMS: CONSTITUTIONAL: No fever, no malaise,. CARDIOVASCULAR: No chest pain, no palpitations, no syncope. PULMONARY: No shortness of breath, no cough, GASTROINTESTINAL: No diarrhea, no nausea, no vomiting, no abdominal pain. NEUROLOGICAL: No headaches, no weakness, PHYSICAL EXAMINATION: GENERAL: The patient is alert and oriented x3, chronically ill looking HEENT: Pupils are round and equally reacting to light. EOMI. No scleral icterus. No conjunctival pallor. Normocephalic, atraumatic. No pharyngeal erythema. No thyromegaly. CARDIOVASCULAR: S1 and S2 present. No murmurs, rubs, or gallops. PULMONARY: Chest is clear to auscultation, no wheezing or crackles. ABDOMEN: Soft, nontender, nondistended, normoactive bowel sounds. No palpable organomegaly. MUSCULOSKELETAL: No joint swelling or deformity. EXTREMITIES: No cyanosis, clubbing, or pedal edema. NEUROLOGICAL: Gross neurological examination did not reveal any focal deficits. SKIN: No rashes. Assessment and plan ever. Possible catheter site infection with tenderness of the right side of the neck. Versus pneumonia less likely. Patient has been afebrile last 36 hours. Hypertensive emergency on admission Intractable nausea and vomiting Worsening shortness of breath and chest pain. Likely due to fluid overload. Ruled out ACS Acute CHF with preserved EF and volume overload. ESRD on hemodialysis 4 times per week M TTS Hyperglycemia with uncontrolled diabetes type 1 Hyperkalemia secondary to CKD History of CVA/TIA with no residual weakness Diabetic gastroparesis and diabetic peripheral neuropathy History of optic neuritis Hypothyroidism Anxiety/depression Monitor vital signs Monitor CBC Monitor CMP Follow-up on blood cultures continue antibiotics in the form of IV cefepime ID following Nephrology following Vascular surgery consulted Labs and medication were reviewed.. Continue same treatment. Continue with symptomatic treatment. Resume home medication. Monitor labs and vitals. DVT and GI prophylaxis. Further recommendations as per clinical course of the patient Dictation was produced using [employer] dictation software. please excuse any grammatical, word or spelling errors. Objective - Vital Signs Vital signs: Vital Signs Temp 97.6 F 10/14/24 08:00 Pulse 72 10/14/24 08:00 Resp 18 10/14/24 08:00 BP 143/79 10/14/24 08:00 Pulse Ox 98 10/14/24 08:00 FiO2 Intake & Output 10/13/24 10/14/24 10/14/24 18:59 06:59 18:59 Intake Total 4098 740 480 Output Total 3400 Balance 698 740 480 Weight 63.5 kg Intake: Oral 698 740 480 Hemodialysis 3400 Output: Hemodialysis 400 Hemodialysis Net Amount 3000 Other: Voiding Method Toilet Toilet # Voids 0 - Labs CBC & Chem 7: 10/14/24 05:58 10/14/24 05:58 Labs: Abnormal Lab Results - Last 24 Hours (Table) 10/13/24 10/13/24 10/13/24 Range/Units 11:17 16:10 20:21 RBC (3.80-5.40) m/uL Hgb (11.4-16.0) gm/dL Hct (34.0-46.0) % MCV (80.0-100.0) fL RDW (11.5-15.5) % Lymphocytes # (1.0-4.8) k/uL Eosinophils # (0-0.7) k/uL Sodium (137-145) mmol/L Chloride (98-107) mmol/L BUN (7-17) mg/dL Creatinine (0.52-1.04) mg/dL POC Glucose (mg/dL) 137 H 282 H 184 H (70-110) mg/dL Phosphorus (2.5-4.5) mg/dL 10/14/24 10/14/24 10/14/24 Range/Units 02:20 02:21 02:41 RBC (3.80-5.40) m/uL Hgb (11.4-16.0) gm/dL Hct (34.0-46.0) % MCV (80.0-100.0) fL RDW (11.5-15.5) % Lymphocytes # (1.0-4.8) k/uL Eosinophils # (0-0.7) k/uL Sodium (137-145) mmol/L Chloride (98-107) mmol/L BUN (7-17) mg/dL Creatinine (0.52-1.04) mg/dL POC Glucose (mg/dL) 45 L* 46 L* 57 L (70-110) mg/dL Phosphorus (2.5-4.5) mg/dL 10/14/24 10/14/24 Range/Units 05:58 05:58 RBC 2.43 L (3.80-5.40) m/uL Hgb 7.8 L (11.4-16.0) gm/dL Hct 24.6 L (34.0-46.0) % MCV 101.1 H (80.0-100.0) fL RDW 17.9 H (11.5-15.5) % Lymphocytes # 0.4 L (1.0-4.8) k/uL Eosinophils # 0.8 H (0-0.7) k/uL Sodium 133 L (137-145) mmol/L Chloride 97 L (98-107) mmol/L BUN 30 H (7-17) mg/dL Creatinine 5.50 H (0.52-1.04) mg/dL POC Glucose (mg/dL) (70-110) mg/dL Phosphorus 5.5 H (2.5-4.5) mg/dL Microbiology - Last 24 Hours (Table) 10/11/24 10:27 Blood Culture - Preliminary Blood
[2024-10-14 14:08] LABS: % Iron Saturation 10.31 (12.00-45.00)
--- NOTE | 2024-10-14 14:40 | P.GSCN ---
History of Present Illness Consult date: 10/14/24 Reason for Consult: right tunneled catheter pain History of present illness: 34 year old female with history of ESRD on hemodialysis via right-sided tunneled chest catheter which she has had for close to a year presented to the hospital secondary to chest pain. She states that she has pain at the catheter site and has noticed that the catheter is more palpable at her neck and clavicle area and she denies any weight loss. She states that the catheter has been functioning well and her hemodialysis has gone without any issues. She denies any fevers, chills, chest pain or shortness of breath. She did previously have a scheduled arteriovenous graft which was canceled due to an infection with Dr. Razo. She states she does not have a follow-up appointment scheduled as of yet. Review of Systems All systems: negative (What is mentioned in the HPI or past medical history) Past Medical History Past Medical History: Diabetes Mellitus, GERD/Reflux, Hypertension, Renal Disease, Seizure Disorder, Thyroid Disorder Additional Past Medical History / Comment(s): Neuropathy, last seizure 2020, gastroparesis, headaches with dialysis, states "fast heart rate" since giving ., receives Hemodialysis Wednesday- and Saturdays at [facility] right chest hemodialysis catheter., severe HTN. patient awaiting Kidney and Pancrease Transplant. , states sometimes she has had stroke -like symptoms but no stroke., hx of c-diff 2013. History of Any Multi-Drug Resistant Organisms: C-DIFF Year Discovered:: unknown MDRO Source:: stool Past Surgical History: Adenoidectomy, Section, Cholecystectomy, Orthopedic Surgery, Tonsillectomy Additional Past Surgical History / Comment(s): 2 KNEE SCOPES, EAR TUBES, additional left knee surgery related to fracture, new port a cath jul 29, eye surgeries for diabetic retinopathy. Past Anesthesia/Blood Transfusion Reactions: Previous Problems w/ Anesthesia Additional Past Anesthesia/Blood Transfusion Reaction / Comm: confusion Past Psychological History: Anxiety, Depression Smoking Status: Current every day smoker Past Alcohol Use History: None Reported Past Drug Use History: Marijuana, Methamphetamine - Past Family History Father History Unknown: Yes Family Medical History: Unable to Obtain Mother History Unknown: Yes Family Medical History: No Reported History Grandfather History Unknown: Yes Family Medical History: Coronary Artery Disease (CAD) Additional Family Medical History / Comment(s): Diabetes mellitus type 2 Medications and Allergies Home Medications Medication Instructions Recorded Confirmed Type Docusate [Colace] 100 mg PO DAILY@0800 02/05/24 10/10/24 History Lidocaine 4% Patch 1 patch TOPICAL DAILY@0800 02/05/24 10/10/24 History Magnesium Hydroxide [Milk of 7,200 mg PO DAILY PRN 02/05/24 10/10/24 History Magnesia Concentrate] Ipratropium-Albuterol Nebulize 3 ml INHALATION RT-TID PRN each 02/14/24 10/10/24 Rx [Duoneb 0.5 mg-3 mg/3 ml Soln] polyethylene glycoL 3350 [Miralax] 17 gm PO AC-LUNCH #527 gm 02/14/24 10/10/24 Rx Acetaminophen [Tylenol] 650 mg PO Q4H PRN 02/18/24 10/10/24 History Biotene Dry Mouth/Throat 10 ml PO BID PRN 02/18/24 10/10/24 History Melatonin 1 mg PO HS tab 02/25/24 10/10/24 Rx Butalb/APAP/Caff 50-325-40Mg 1 tab PO Q4HR PRN 03/14/24 10/10/24 History [Fioricet 50-325-40] Darbepoetin Artur [Aranesp] 40 mcg SQ MO 03/14/24 10/10/24 History Loratadine [Claritin] 5 mg PO DAILY tab 03/30/24 10/10/24 Rx Aspirin 81 mg PO DAILY@0800 #30 tab 05/18/24 10/10/24 Rx Famotidine [Pepcid] 20 mg PO BID #60 tab 07/11/24 10/10/24 Rx Ondansetron [Zofran] 4 mg PO Q8HR PRN #20 tab 07/11/24 10/10/24 Rx Atorvastatin [Lipitor] 40 mg PO DIRECTED 08/14/24 10/10/24 History Divalproex ER [Depakote ER] 500 mg PO BID@0800,1700 08/14/24 10/10/24 History HYDROcodone/APAP 7.5-325MG [[place] 1 tab PO Q8H PRN 08/14/24 10/10/24 History 7.5-325] Levothyroxine Sodium [Synthroid] 175 mcg PO DAILY@0608/14/24 10/10/24 History Metoclopramide [Reglan] 5 mg PO AC-TID PRN 08/14/24 10/10/24 History Pantoprazole [Protonix] 40 mg PO DAILY@0600 08/14/24 10/10/24 History Sertraline [Zoloft] 200 mg PO DAILY@0808/14/24 10/10/24 History methocarbamoL [Robaxin-750] 750 mg PO DIRECTED 08/14/24 10/10/24 History traZODone HCL [Desyrel] 50 mg PO HS 08/14/24 10/10/24 History ALPRAZolam [Xanax] 0.25 mg PO BID PRN 09/04/24 10/10/24 History Calcium Acetate [PhosLo] 2,001 mg PO TID-W/MEALS 09/04/24 10/10/24 History Calcium Acetate [PhosLo] 667 mg PO DAILY PRN 09/04/24 10/10/24 History cloNIDine HCL [Catapres] 0.3 mg PO TID 09/04/24 10/10/24 History Colchicine [Colcrys] 0.3 mg PO DAILY #15 each 09/23/24 10/10/24 Rx Isosorbide Mononitrate ER [Imdur] 120 mg PO DAILY #60 tab 09/23/24 10/10/24 Rx Labetalol [Trandate] 500 mg PO BID #150 tab 09/23/24 10/10/24 Rx NIFEdipine XL [Procardia XL] 60 mg PO BID #60 tab 09/23/24 10/10/24 Rx hydrALAZINE HCL [Apresoline] 100 mg PO TID #90 tab 09/23/24 10/10/24 Rx Insulin Aspart [NovoLOG Flexpen] 4 units SQ AC-TID 10/10/24 10/10/24 History Insulin Aspart [NovoLOG Flexpen] See Protocol SQ ACHS 10/10/24 10/10/24 History Insulin Glargine,Hum.rec.anlog 12 units SQ BID 10/10/24 10/10/24 History [Lantus Solostar Pen] Triphrocaps 1mg Cap 1 cap PO DAILY 10/10/24 10/10/24 History Allergies Allergy/AdvReac Type Severity Reaction Status Date / Time hydromorphone HCl Allergy Anaphylaxis Verified 10/10/24 16:07 [From Dilaudid] propoxyphene Allergy Rash/Hives Verified 10/10/24 16:07 [From Darvocet-N] tramadol Allergy Anaphylaxis Verified 10/10/24 16:07 ibuprofen [From Motrin] AdvReac unable to Verified 10/10/24 16:07 take due to kidney disease venom-honey bee AdvReac passes out Verified 10/10/24 16:07 [bee venom (honey bee)] Surgical - Exam Vital Signs Temp Pulse Resp BP Pulse Ox 100.1 F H 87 20 195/105 100 10/10/24 11:36 10/10/24 11:36 10/10/24 11:36 10/10/24 11:36 10/10/24 11:36 Patient Seen Date: 10/14/24 Patient Seen Time: 13:30 - General Minimal pain. well developed, well nourished - Eyes PERRL, normal ocular movement - ENT normal pinna, normal nares - Neck no masses, no bruits - Respiratory normal respiratory effort, clear to auscultation - Cardiovascular Rhythm: regular - Abdomen Abdomen: soft, non tender - Psychiatric oriented to time, oriented to person, oriented to place, speech is normal Chest catheter is clean, dry and intact. No signs of infection. Minimal tenderness to palpation at the catheter site overlying the clavicle and neck area. Palpable DP and PT pulse bilaterally. Palpable radial pulses bilaterally Results Chest x-ray reviewed from the 26 which demonstrates normal-appearing catheter without any kinks - Labs 10/14/24 05:58 10/14/24 05:58 Abnormal Lab Results - Last 24 Hours (Table) 10/13/24 10/13/24 10/14/24 Range/Units 16:10 20:21 02:20 RBC (3.80-5.40) m/uL Hgb (11.4-16.0) gm/dL Hct (34.0-46.0) % MCV (80.0-100.0) fL RDW (11.5-15.5) % Lymphocytes # (1.0-4.8) k/uL Eosinophils # (0-0.7) k/uL Sodium (137-145) mmol/L Chloride (98-107) mmol/L BUN (7-17) mg/dL Creatinine (0.52-1.04) mg/dL POC Glucose (mg/dL) 282 H 184 H 45 L* (70-110) mg/dL Phosphorus (2.5-4.5) mg/dL Iron (50-170) UG/DL TIBC (228-460) UG/DL % Saturation (12.00-45.00) Transferrin (204.0-354.0) mg/dL Ferritin (10.0-291.0) ng/mL 10/14/24 10/14/24 10/14/24 Range/Units 02:21 02:41 05:58 RBC (3.80-5.40) m/uL Hgb (11.4-16.0) gm/dL Hct (34.0-46.0) % MCV (80.0-100.0) fL RDW (11.5-15.5) % Lymphocytes # (1.0-4.8) k/uL Eosinophils # (0-0.7) k/uL Sodium 133 L (137-145) mmol/L Chloride 97 L (98-107) mmol/L BUN 30 H (7-17) mg/dL Creatinine 5.50 H (0.52-1.04) mg/dL POC Glucose (mg/dL) 46 L* 57 L (70-110) mg/dL Phosphorus 5.5 H (2.5-4.5) mg/dL Iron (50-170) UG/DL TIBC (228-460) UG/DL % Saturation (12.00-45.00) Transferrin (204.0-354.0) mg/dL Ferritin (10.0-291.0) ng/mL 10/14/24 10/14/24 10/14/24 Range/Units 05:58 05:58 11:17 RBC 2.43 L (3.80-5.40) m/uL Hgb 7.8 L (11.4-16.0) gm/dL Hct 24.6 L (34.0-46.0) % MCV 101.1 H (80.0-100.0) fL RDW 17.9 H (11.5-15.5) % Lymphocytes # 0.4 L (1.0-4.8) k/uL Eosinophils # 0.8 H (0-0.7) k/uL Sodium (137-145) mmol/L Chloride (98-107) mmol/L BUN (7-17) mg/dL Creatinine (0.52-1.04) mg/dL POC Glucose (mg/dL) 174 H (70-110) mg/dL Phosphorus (2.5-4.5) mg/dL Iron 23 L (50-170) UG/DL TIBC 223 L (228-460) UG/DL % Saturation 10.31 L (12.00-45.00) Transferrin 159.0 L (204.0-354.0) mg/dL Ferritin 562.0 H (10.0-291.0) ng/mL Microbiology - Last 24 Hours (Table) 10/11/24 10:27 Blood Culture - Preliminary Blood Diabetes panel 10/14/24 Range/Units 05:58 Sodium 133 L (137-145) mmol/L Potassium 4.8 (3.5-5.1) mmol/L Chloride 97 L (98-107) mmol/L Carbon Dioxide 30 (22-30) mmol/L BUN 30 H (7-17) mg/dL Creatinine 5.50 H (0.52-1.04) mg/dL Glucose 83 (74-99) mg/dL Calcium 8.5 (8.4-10.2) mg/dL Calcium panel 10/14/24 Range/Units 05:58 Calcium 8.5 (8.4-10.2) mg/dL Phosphorus 5.5 H (2.5-4.5) mg/dL Pituitary panel 10/14/24 Range/Units 05:58 Sodium 133 L (137-145) mmol/L Potassium 4.8 (3.5-5.1) mmol/L Chloride 97 L (98-107) mmol/L Carbon Dioxide 30 (22-30) mmol/L BUN 30 H (7-17) mg/dL Creatinine 5.50 H (0.52-1.04) mg/dL Glucose 83 (74-99) mg/dL Calcium 8.5 (8.4-10.2) mg/dL Adrenal panel 10/14/24 Range/Units 05:58 Sodium 133 L (137-145) mmol/L Potassium 4.8 (3.5-5.1) mmol/L Chloride 97 L (98-107) mmol/L Carbon Dioxide 30 (22-30) mmol/L BUN 30 H (7-17) mg/dL Creatinine 5.50 H (0.52-1.04) mg/dL Glucose 83 (74-99) mg/dL Calcium 8.5 (8.4-10.2) mg/dL Assessment and Plan Assessment: End-stage renal disease on hemodialysis via right-sided chest catheter Right tunneled hemodialysis catheter pain Fevers Plan: Reviewed chest x-ray with the patient in full detail which demonstrates normal- appearing catheter without any signs of kinking. Her evaluation demonstrates no evidence of any infection and we reviewed her blood cultures which are negative to this point roughly after 48 hours. She does have a previous history of scheduled access in her arm which needs to be done soon as possible. I discussed this with her and she is on board for scheduling a upper extremity access with Dr. Razo in the near future. I would not recommend at this point removing the catheter unless positive blood cultures. Thank you for the consultation.
--- NOTE | 2024-10-14 15:11 | P.PN ---
Subjective Progress Note Date: 10/14/24 Principal diagnosis: Reason for follow-up is fever possible pneumonia Patient is a 34-year-old female with a past medical history significant for diabetes mellitus seizure disorder hypertension reflux patient also with a history of end-stage renal disease on hemodialysis through the right subclavian permacatheter patient has been brought into the hospital for evaluat ion of chest pain along with shortness of breath patient also spiked a fever prompting this consultation. On today's evaluation that is 10/14/2024, the patient continues to be afebrile, the patient is on 3 L nasal oxygen and breathing slightly comfortably, the Pt has been complaining of chest pain and also having a cough bring up some sputum supine vomiting has been reported and no diarrhea. Patient white count is 5.2 creatinine is 5.50 blood culture remains to be negative Objective - Vital Signs Vital signs: Vital Signs Temp 97.7 F 10/14/24 13:22 Pulse 81 10/14/24 13:22 Resp 16 10/14/24 13:22 BP 160/85 10/14/24 13:22 Pulse Ox 97 10/14/24 11:29 FiO2 Intake & Output 10/13/24 10/14/24 10/14/24 18:59 06:59 18:59 Intake Total 4098 740 1220 Output Total 3400 7500 Balance 698 740 -6280 Weight 63.5 kg Intake: Oral 698 740 720 Hemodialysis 3400 500 Output: Hemodialysis 400 4000 Hemodialysis Net Amount 3000 3500 Other: Voiding Method Toilet Toilet # Voids 0 0 - Exam GENERAL DESCRIPTION: Middle-age female lying in bed in no distress RESPIRATORY SYSTEM: Unlabored breathing , decreased breath sounds at bases HEART: S1 S2 regular rate and rhythm , ABDOMEN: Soft , no tenderness EXTREMITIES: No edema feet - Labs CBC & Chem 7: 10/14/24 05:58 10/14/24 05:58 Labs: Abnormal Lab Results - Last 24 Hours (Table) 10/13/24 10/13/24 10/14/24 Range/Units 16:10 20:21 02:20 RBC (3.80-5.40) m/uL Hgb (11.4-16.0) gm/dL Hct (34.0-46.0) % MCV (80.0-100.0) fL RDW (11.5-15.5) % Lymphocytes # (1.0-4.8) k/uL Eosinophils # (0-0.7) k/uL Sodium (137-145) mmol/L Chloride (98-107) mmol/L BUN (7-17) mg/dL Creatinine (0.52-1.04) mg/dL POC Glucose (mg/dL) 282 H 184 H 45 L* (70-110) mg/dL Phosphorus (2.5-4.5) mg/dL Iron (50-170) UG/DL TIBC (228-460) UG/DL % Saturation (12.00-45.00) Transferrin (204.0-354.0) mg/dL Ferritin (10.0-291.0) ng/mL 10/14/24 10/14/24 10/14/24 Range/Units 02:21 02:41 05:58 RBC (3.80-5.40) m/uL Hgb (11.4-16.0) gm/dL Hct (34.0-46.0) % MCV (80.0-100.0) fL RDW (11.5-15.5) % Lymphocytes # (1.0-4.8) k/uL Eosinophils # (0-0.7) k/uL Sodium 133 L (137-145) mmol/L Chloride 97 L (98-107) mmol/L BUN 30 H (7-17) mg/dL Creatinine 5.50 H (0.52-1.04) mg/dL POC Glucose (mg/dL) 46 L* 57 L (70-110) mg/dL Phosphorus 5.5 H (2.5-4.5) mg/dL Iron (50-170) UG/DL TIBC (228-460) UG/DL % Saturation (12.00-45.00) Transferrin (204.0-354.0) mg/dL Ferritin (10.0-291.0) ng/mL 10/14/24 10/14/24 10/14/24 Range/Units 05:58 05:58 11:17 RBC 2.43 L (3.80-5.40) m/uL Hgb 7.8 L (11.4-16.0) gm/dL Hct 24.6 L (34.0-46.0) % MCV 101.1 H (80.0-100.0) fL RDW 17.9 H (11.5-15.5) % Lymphocytes # 0.4 L (1.0-4.8) k/uL Eosinophils # 0.8 H (0-0.7) k/uL Sodium (137-145) mmol/L Chloride (98-107) mmol/L BUN (7-17) mg/dL Creatinine (0.52-1.04) mg/dL POC Glucose (mg/dL) 174 H (70-110) mg/dL Phosphorus (2.5-4.5) mg/dL Iron 23 L (50-170) UG/DL TIBC 223 L (228-460) UG/DL % Saturation 10.31 L (12.00-45.00) Transferrin 159.0 L (204.0-354.0) mg/dL Ferritin 562.0 H (10.0-291.0) ng/mL Microbiology - Last 24 Hours (Table) 10/11/24 10:27 Blood Culture - Preliminary Blood Assessment and Plan (1) Sepsis Current Visit: Yes Status: Acute Code(s): A41.9 - SEPSIS, UNSPECIFIED ORGANISM SNOMED Code(s): 15601982 (2) Pneumonia Current Visit: Yes Status: Acute Code(s): J18.9 - PNEUMONIA, UNSPECIFIED ORGANISM SNOMED Code(s): 376879208 Plan: 1patient with sepsis in this patient who did have fever tachycardia elevated white count admission presentation has been mostly chest pain which seem to be around her catheter site however no redness has been noticed with a question of possible dialysis catheter infection versus pneumonia less likely but not entirely excluded is considered other obvious focus of infection. 2blood cultures has been obtained from dialysis catheter which are currently pending 3patient will be treated with cefepime and vancomycin while waiting for the culture to finalize and monitor clinical course closely nursing staff try to obtain a sputum Dictation was produced using [employer] dictation software. please excuse any grammatical, word or spelling errors. Time with Patient: Less than 30
[2024-10-14 16:12] LABS: Glucose,Whole Blood 399 mg/dL (70-110)
[2024-10-14] MEDS: VANCOMYCIN 1,250 MG in SODIUM CHLORIDE 0.9% 250 ML IVPB ONE (17:50)
[2024-10-14 20:25] LABS: Glucose,Whole Blood 411 mg/dL (70-110)
[2024-10-15 06:14] LABS: Glucose,Whole Blood 231 mg/dL (70-110)
--- NOTE | 2024-10-15 09:26 | P.PN ---
Subjective Patient is seen in follow-up for end-stage renal disease. Underwent hemodialysis yesterday with 3.5 L ultrafiltration. Hemodynamically stable. On room air. Vital signs are stable. General: No acute distress. HEENT: Head exam is unremarkable. LUNGS: No audible rhonchi or wheezes. HEART: Rate and Rhythm are regular. ABDOMEN: Nontender. EXTREMITITES: No edema. Objective - Vital Signs Vital signs: Vital Signs Temp 98.2 F 10/14/24 20:00 Pulse 67 10/15/24 04:00 Resp 16 10/15/24 04:00 BP 137/82 10/15/24 04:00 Pulse Ox 99 10/15/24 04:00 FiO2 Intake & Output 10/14/24 10/15/24 10/15/24 18:59 06:59 18:59 Intake Total 1700 1020 Output Total 7500 Balance -5800 1020 Weight 62.9 kg Intake: Oral 1200 1020 Hemodialysis 500 Output: Hemodialysis 4000 Hemodialysis Net Amount 3500 Other: Voiding Method Toilet Toilet # Voids 0 0 - Labs CBC & Chem 7: 10/14/24 05:58 10/14/24 05:58 Labs: Abnormal Lab Results - Last 24 Hours (Table) 10/14/24 10/14/24 10/14/24 Range/Units 05:58 11:17 16:10 POC Glucose (mg/dL) 174 H 399 H (70-110) mg/dL Iron 23 L (50-170) UG/DL TIBC 223 L (228-460) UG/DL % Saturation 10.31 L (12.00-45.00) Transferrin 159.0 L (204.0-354.0) mg/dL Ferritin 562.0 H (10.0-291.0) ng/mL 10/14/24 10/15/24 Range/Units 20:24 06:12 POC Glucose (mg/dL) 411 H 231 H (70-110) mg/dL Iron (50-170) UG/DL TIBC (228-460) UG/DL % Saturation (12.00-45.00) Transferrin (204.0-354.0) mg/dL Ferritin (10.0-291.0) ng/mL Microbiology - Last 24 Hours (Table) 10/11/24 10:27 Blood Culture - Preliminary Blood Assessment and Plan Plan: Assessment: 1. End-stage renal disease maintained on hemodialysis on Wednesday. Has permacath. 2. Chest pain. She is concerned that the dialysis catheter is a source of the pain. Seen by vascular surgery. No interventions planned. 3. Hypertension with chronic kidney disease. Stable. 4. Diabetes mellitus. 5. Chronic kidney disease mineral bone disease maintained on PhosLo. 6. Anemia of chronic kidney disease. Iron deficiency noted. Plan: Hemodialysis tomorrow. Add IV iron. Blood culture negative so far.
[2024-10-15 11:21] LABS: Glucose,Whole Blood 150 mg/dL (70-110)
--- NOTE | 2024-10-15 12:27 | XR ---
EXAMINATION TYPE: XR chest 1V portable DATE OF EXAM: 10/15/2024 12:09 PM COMPARISON: 10/10/2024 CLINICAL INDICATION: Female, 34 years old with history of pulm edema; shortness of breath TECHNIQUE: XR chest 1V portable Frontal view of the chest. FINDINGS: Lungs/Pleura: There is no evidence of pleural effusion, focal consolidation, or pneumothorax. Pulmonary vascularity: Pulmonary vascular congestion. Heart/mediastinum: Cardiomediastinal silhouette is unremarkable. Musculoskeletal: No acute osseous pathology. Other findings: None Lines/Tubes: Right internal jugular central venous catheter with distal tip at the cavoatrial junction. IMPRESSION: 1. Right central venous catheter in appropriate position. 2. Mild pulmonary edema [facility], , 10/15/2024 12:25 PM
[2024-10-15] MEDS: SODIUM FERRIC GLUCONAT-SUCROSE 125 MG in SODIUM CHLORIDE 0.9% 100 ML IVPB SCH (12:49)
--- NOTE | 2024-10-15 12:51 | P.PN ---
Subjective Progress Note Date: 10/15/24 Patient is a 34-year-old female with a past medical history of ESRD on hemodialysis 4 times a week with right subclavian permacath awaiting panel and liver transplant , hypertension, diabetes type 2 insulin-dependent, hypothyroidism, diabetic neuropathy, gastroparesis,, anxiety/depression, currently everyday smoker and history of marijuana and methamphetamine use. Patient was recently discharged from the hospital on 09/23/2024 after prolonged stay due to hypertensive emergency and pulmonary edema and fluid overload. Patient presented back to the hospital with complaints of chest pain 8 of 10 in severity started around 8:30 in the morning. Patient also states that the pain radiated to her neck associated shortness of breath and dizziness. Worsens with inspiration and is also complaining of nausea and vomiting started around 3 AM in the morning. Patient had hemodialysis done yesterday with full run. Denied any fever or chills. No cough or sputum production. No diarrhea. No complaint of abdominal pain. On admission blood pressure 195/105 pulse 87 respiration 20 and pulse ox 100% on room air. Laboratory data showed WBC 14.1 hemoglobin 9.4 and platelets 292 Sodium 128 potassium 6.3 with slight hemolysis, chloride 90 bicarb is 24 BUN 44 and creatinine 5.72 and blood sugar 232 and repeat was 512 liver enzymes not elevated proBNP 44,600 Flu in the ED RSV and COVID-19 PCR not detected. Chest x-ray showed correlate for CHF with pulmonary vascular congestion and mild interstitial edema. 10/11/2024 Patient is currently lying in bed. Awake alert and oriented. Still complains of pain. Also complains of nausea. Patient is undergoingtoday. Patient had patient developed fever with Tmax of 101.3 morning. Blood cultures were sent. Patient was started on broad-spectrum antibiotics and ID consult placed. Chest x-ray correlate for CHF with pulmonary vascular congestion and mild interstitial edema. Laboratory showed sodium 130 potassium 5.3 chloride 27 BUN 59 creatinine 7.69 and blood sugar is 64. Procalcitonin level 4.97. Nephrology is on board. 10/12/2024 Patient is resting in the bed. Feels better. No complaints of chest pain. Worsening shortness of breath. Patient also states that she has been having right-sided neck pain at the catheter site. Patient has been afebrile today. Still complains of nausea and occasional chest pains. Laboratory showed WBC 6.1 hemoglobin 8.1 platelets 254 sodium 132 potassium 4.9 chloride 91 bicarb is 25 BUN 40 and creatinine 5.37 and blood sugar 163. Patient is being on antibiotics cefepime and vancomycin. Blood cultures negat vicki so far. ID and nephrology is on board. 10/13/2024 Patient is lying in the bed. Awake alert and oriented. Patient states that she is not feeling well. Complains of pain at the catheter site over the right side of neck. Patient has been afebrile. Remains on broad-spectrum antibiotics. Otherwise blood sugars are fluctuating. Continued on insulin sliding scale along with insulin regimen with Levemir. Patient also complaining of nausea. Scheduled for hemodialysis today. Laboratory data reviewed. 10/14. Patient seen and examined. Blood work this morning showed WBC 5.2, hemoglobin 7.8, sodium 133, potassium 4.8, BUN 30, creatinine 5.50. Complaining of right-sided neck pain at the site of dialysis catheter 10/15. Patient seen and examined. Complaining of cough. Continues to be afebrile complaining of difficulty in breathing. REVIEW OF SYSTEMS: CONSTITUTIONAL: No fever, no malaise,. CARDIOVASCULAR: No chest pain, no palpitations, no syncope. PULMONARY: As mentioned above GASTROINTESTINAL: No diarrhea, no nausea, no vomiting, no abdominal pain. NEUROLOGICAL: No headaches, no weakness, PHYSICAL EXAMINATION: GENERAL: The patient is alert and oriented x3, chronically ill looking HEENT: Pupils are round and equally reacting to light. EOMI. No scleral icterus. No conjunctival pallor. Normocephalic, atraumatic. No pharyngeal erythema. No thyromegaly. CARDIOVASCULAR: S1 and S2 present. No murmurs, rubs, or gallops. PULMONARY: Coarse breath sound bilaterally,, no wheezing or crackles. ABDOMEN: Soft, nontender, nondistended, normoactive bowel sounds. No palpable organomegaly. MUSCULOSKELETAL: No joint swelling or deformity. EXTREMITIES: No cyanosis, clubbing, or pedal edema. NEUROLOGICAL: Gross neurological examination did not reveal any focal deficits. SKIN: No rashes. Assessment and plan Possible catheter site infection with tenderness of the right side of the neck. Versus pneumonia less likely. Patient has been afebrile last 36 hours. Hypertensive emergency on admission Intractable nausea and vomiting Worsening shortness of breath and chest pain. Likely due to fluid overload. Ruled out ACS Acute CHF with preserved EF and volume overload. ESRD on hemodialysis 4 times per week M TTS Hyperglycemia with uncontrolled diabetes type 1 Hyperkalemia secondary to CKD History of CVA/TIA with no residual weakness Diabetic gastroparesis and diabetic peripheral neuropathy History of optic neuritis Hypothyroidism Anxiety/depression Monitor vital signs Monitor CBC Monitor CMP Follow-up on blood cultures continue antibiotics in the form of IV cefepime Monitor blood sugar levels, continue current insulin regimen Continue Imdur, Procardia, labetalol Continue Synthroid Ordered chest x-ray ID following Nephrology following Vascular surgery following Labs and medication were reviewed.. Continue same treatment. Continue with symptomatic treatment. Resume home medication. Monitor labs and vitals. DVT and GI prophylaxis. Further recommendations as per clinical course of the patient Dictation was produced using [employer] dictation software. please excuse any grammatical, word or spelling errors. Objective - Vital Signs Vital signs: Vital Signs Temp 98.3 F 10/15/24 08:00 Pulse 72 10/15/24 08:00 Resp 18 10/15/24 08:00 BP 142/84 10/15/24 08:00 Pulse Ox 94 L 10/15/24 08:00 FiO2 Intake & Output 10/14/24 10/15/24 10/15/24 18:59 06:59 18:59 Intake Total 1700 1020 Output Total 7500 Balance -5800 1020 Weight 62.9 kg Intake: Oral 1200 1020 Hemodialysis 500 Output: Hemodialysis 4000 Hemodialysis Net Amount 3500 Other: Voiding Method Toilet Toilet Toilet # Voids 0 0 - Labs CBC & Chem 7: 10/14/24 05:58 10/14/24 05:58 Labs: Abnormal Lab Results - Last 24 Hours (Table) 10/14/24 10/14/24 10/14/24 Range/Units 05:58 11:17 16:10 POC Glucose (mg/dL) 174 H 399 H (70-110) mg/dL Iron 23 L (50-170) UG/DL TIBC 223 L (228-460) UG/DL % Saturation 10.31 L (12.00-45.00) Transferrin 159.0 L (204.0-354.0) mg/dL Ferritin 562.0 H (10.0-291.0) ng/mL 10/14/24 10/15/24 Range/Units 20:24 06:12 POC Glucose (mg/dL) 411 H 231 H (70-110) mg/dL Iron (50-170) UG/DL TIBC (228-460) UG/DL % Saturation (12.00-45.00) Transferrin (204.0-354.0) mg/dL Ferritin (10.0-291.0) ng/mL Microbiology - Last 24 Hours (Table) 10/11/24 10:27 Blood Culture - Preliminary Blood
--- NOTE | 2024-10-15 13:01 | P.PN ---
Subjective Progress Note Date: 10/15/24 Principal diagnosis: Reason for follow-up is fever possible pneumonia Patient is a 34-year-old female with a past medical history significant for diabetes mellitus seizure disorder hypertension reflux patient also with a history of end-stage renal disease on hemodialysis through the right subclavian permacatheter patient has been brought into the hospital for evaluat ion of chest pain along with shortness of breath patient also spiked a fever prompting this consultation. On today's evaluation that is 10/15/2024, Patient is afebrile patient is currently on room air and complaining of right-sided chest pain and a cough but not bringing up any sputum some nausea with vomiting no abdominal pain or diarrhea patient is currently on room air satting 96%. No new lab has been obtained today blood culture remains to be negative sputum cultures pending Objective - Vital Signs Vital signs: Vital Signs Temp 98.3 F 10/15/24 08:00 Pulse 73 10/15/24 11:41 Resp 16 10/15/24 11:41 BP 156/86 10/15/24 11:41 Pulse Ox 96 10/15/24 11:41 FiO2 Intake & Output 10/14/24 10/15/24 10/15/24 18:59 06:59 18:59 Intake Total 1700 1020 Output Total 7500 Balance -5800 1020 Weight 62.9 kg Intake: Oral 1200 1020 Hemodialysis 500 Output: Hemodialysis 4000 Hemodialysis Net Amount 3500 Other: Voiding Method Toilet Toilet Toilet # Voids 0 0 - Exam GENERAL DESCRIPTION: Middle-age female lying in bed in no distress RESPIRATORY SYSTEM: Unlabored breathing , decreased breath sounds at bases HEART: S1 S2 regular rate and rhythm , ABDOMEN: Soft , no tenderness EXTREMITIES: No edema feet - Labs CBC & Chem 7: 10/14/24 05:58 10/14/24 05:58 Labs: Abnormal Lab Results - Last 24 Hours (Table) 10/14/24 10/14/24 10/14/24 Range/Units 05:58 16:10 20:24 POC Glucose (mg/dL) 399 H 411 H (70-110) mg/dL Iron 23 L (50-170) UG/DL TIBC 223 L (228-460) UG/DL % Saturation 10.31 L (12.00-45.00) Transferrin 159.0 L (204.0-354.0) mg/dL Ferritin 562.0 H (10.0-291.0) ng/mL 10/15/24 10/15/24 Range/Units 06:12 11:20 POC Glucose (mg/dL) 231 H 150 H (70-110) mg/dL Iron (50-170) UG/DL TIBC (228-460) UG/DL % Saturation (12.00-45.00) Transferrin (204.0-354.0) mg/dL Ferritin (10.0-291.0) ng/mL Microbiology - Last 24 Hours (Table) 10/11/24 10:27 Blood Culture - Preliminary Blood Assessment and Plan (1) Sepsis Current Visit: Yes Status: Acute Code(s): A41.9 - SEPSIS, UNSPECIFIED ORGANISM SNOMED Code(s): 05569760 (2) Pneumonia Current Visit: Yes Status: Acute Code(s): J18.9 - PNEUMONIA, UNSPECIFIED ORGANISM SNOMED Code(s): 532230326 Plan: 1patient with sepsis in this patient who did have fever tachycardia elevated white count admission presentation has been mostly chest pain which seem to be around her catheter site however no redness has been noticed with a question of possible dialysis catheter infection versus pneumonia less likely but not entirely excluded is considered other obvious focus of infection. 2blood cultures has been obtained from dialysis catheter which are so far negative 3patient is more behaving as pneumonia with a line infection sputum culture will be followed I will treat the patient with cefepime and discontinue vancomycin Dictation was produced using [employer] dictation software. please excuse any grammatical, word or spelling errors. Time with Patient: Less than 30
[2024-10-15 16:31] LABS: Glucose,Whole Blood 315 mg/dL (70-110)
[2024-10-15 20:26] LABS: Glucose,Whole Blood 315 mg/dL (70-110)
[2024-10-16 06:27] LABS: Anisocytosis Slight; Basophils % (A) 1 %; Eosinophils # (A) 1.3 k/uL (0-0.7); Eosinophils % (A) 20 %; HCT 25.7 % (34.0-46.0); HGB 8.1 gm/dL (11.4-16.0); Hypochromasia Marked; Lymphocytes % (A) 15 %; MCH 32.1 pg (25.0-35.0); MCHC 31.5 g/dL (31.0-37.0); MCV 101.9 fL (80.0-100.0); Macrocytosis Moderate; Mean Platelet Volume 8.2; Monocytes # (A) 0.4 k/uL (0-1.0); Monocytes % (A) 6 %; Neutrophils # (A) 3.6 k/uL (1.3-7.7); Neutrophils % (A) 56 %; Platelet Count 244 k/uL (150-450); RBC 2.52 m/uL (3.80-5.40); RDW 17.6 % (11.5-15.5); WBC 6.5 k/uL (3.8-10.6)
[2024-10-16 06:39] LABS: Glucose,Whole Blood 123 mg/dL (70-110)
[2024-10-16 06:44] LABS: ALT 22 U/L (4-34); AST 18 U/L (14-36); African American GFR (CKD) 11 (>60 ml/min/1.73 sqM); Albumin 3.5 g/dL (3.5-5.0); Alkaline Phosphatase 96 U/L (38-126); Anion Gap 9 mmol/L; Blood Urea Nitrogen 44 mg/dL (7-17); Calcium 8.8 mg/dL (8.4-10.2); Carbon Dioxide 22 mmol/L (22-30); Chloride 103 mmol/L (98-107); Glucose 118 mg/dL (74-99); Non-African American GFR(CKD) 9 (>60 ml/min/1.73 sqM); Sodium 134 mmol/L (137-145); Total Bilirubin 0.7 mg/dL (0.2-1.3); Total Protein 5.8 g/dL (6.3-8.2)
[2024-10-16 08:41] LABS: Glucose,Whole Blood 220 mg/dL (70-110)
--- NOTE | 2024-10-16 10:08 | P.PN ---
Subjective Patient is seen in follow-up for end-stage renal disease. Underwent hemodialysis yesterday with 3.5 L ultrafiltration. Hemodynamically stable. On room air. Tolerating dialysis well. Vital signs are stable. General: No acute distress. HEENT: Head exam is unremarkable. LUNGS: No audible rhonchi or wheezes. HEART: Rate and Rhythm are regular. ABDOMEN: Nontender. EXTREMITITES: No edema. Objective - Vital Signs Vital signs: Vital Signs Temp 98.2 F 10/16/24 08:30 Pulse 81 10/16/24 08:30 Resp 17 10/16/24 08:30 BP 158/92 10/16/24 08:30 Pulse Ox 95 10/16/24 08:30 FiO2 Intake & Output 10/15/24 10/16/24 10/16/24 18:59 06:59 18:59 Intake Total 780 480 Balance 780 480 Weight 62.2 kg Intake: Oral 780 480 Other: Voiding Method Toilet Toilet Toilet # Voids 1 1 0 # Bowel Movements 0 - Labs CBC & Chem 7: 10/16/24 05:29 10/16/24 05:29 Labs: Abnormal Lab Results - Last 24 Hours (Table) 10/15/24 10/15/24 10/15/24 Range/Units 11:20 16:29 20:23 RBC (3.80-5.40) m/uL Hgb (11.4-16.0) gm/dL Hct (34.0-46.0) % MCV (80.0-100.0) fL RDW (11.5-15.5) % Eosinophils # (0-0.7) k/uL Sodium (137-145) mmol/L BUN (7-17) mg/dL Creatinine (0.52-1.04) mg/dL Glucose (74-99) mg/dL POC Glucose (mg/dL) 150 H 315 H 315 H (70-110) mg/dL Total Protein (6.3-8.2) g/dL 10/16/24 10/16/24 10/16/24 Range/Units 05:29 05:29 06:36 RBC 2.52 L (3.80-5.40) m/uL Hgb 8.1 L (11.4-16.0) gm/dL Hct 25.7 L (34.0-46.0) % MCV 101.9 H (80.0-100.0) fL RDW 17.6 H (11.5-15.5) % Eosinophils # 1.3 H (0-0.7) k/uL Sodium 134 L (137-145) mmol/L BUN 44 H (7-17) mg/dL Creatinine 5.56 H (0.52-1.04) mg/dL Glucose 118 H (74-99) mg/dL POC Glucose (mg/dL) 123 H (70-110) mg/dL Total Protein 5.8 L (6.3-8.2) g/dL 10/16/24 Range/Units 08:39 RBC (3.80-5.40) m/uL Hgb (11.4-16.0) gm/dL Hct (34.0-46.0) % MCV (80.0-100.0) fL RDW (11.5-15.5) % Eosinophils # (0-0.7) k/uL Sodium (137-145) mmol/L BUN (7-17) mg/dL Creatinine (0.52-1.04) mg/dL Glucose (74-99) mg/dL POC Glucose (mg/dL) 220 H (70-110) mg/dL Total Protein (6.3-8.2) g/dL Microbiology - Last 24 Hours (Table) 10/15/24 08:48 Gram Stain - Preliminary Sputum 10/14/24 05:58 Blood Culture - Preliminary Blood Assessment and Plan Plan: Assessment: 1. End-stage renal disease maintained on hemodialysis on Wednesday. Has permacath. 2. Chest pain. She is concerned that the dialysis catheter is a source of the pain. Seen by vascular surgery. No interventions planned. 3. Hypertension with chronic kidney disease. Stable. 4. Diabetes mellitus. 5. Chronic kidney disease mineral bone disease maintained on PhosLo. 6. Anemia of chronic kidney disease. Iron deficiency noted. 7. Pneumonia on antibiotics. ID following. Plan: Currently seen while undergoing hemodialysis. Maintain IV iron. Blood culture negative so far.
--- NOTE | 2024-10-16 10:21 | P.PN ---
Subjective Progress Note Date: 10/16/24 Principal diagnosis: Pneumonia Patient is seen and examined today as a follow-up. She is currently undergoing dialysis without any complications. States that it is painful still in her chest. Although there is no redness or drainage. X-ray showed proper placement. She is afebrile. Initial blood cultures were negative, preliminary pending and no growth at 24 hours. Objective - Vital Signs Vital signs: Vital Signs Temp 97.5 F L 10/16/24 04:00 Pulse 78 10/16/24 04:00 Resp 15 10/16/24 04:00 BP 152/82 10/16/24 04:00 Pulse Ox 93 L 10/16/24 07:46 FiO2 Intake & Output 10/15/24 10/16/24 10/16/24 18:59 06:59 18:59 Intake Total 780 Balance 780 Weight 62.2 kg Intake: Oral 780 Other: Voiding Method Toilet Toilet # Voids 1 1 - Exam General appearance: The patient is alert, oriented, appears in no acute distress. HET: Head is normocephalic and atraumatic. Neck: Supple. Heart: Regular. Lungs: Equal expansion, normal respiratory effort. Chest: Right upper chest wall dialysis catheter with dressing clean dry and intact. No surrounding erythema or drainage. Abdomen: Soft, nontender, nondistended. Extremities: Normal skin color and turgor. Neurological: No focal deficits. Alert and oriented. - Labs CBC & Chem 7: 10/16/24 05:29 10/16/24 05:29 Labs: Abnormal Lab Results - Last 24 Hours (Table) 10/15/24 10/15/24 10/15/24 Range/Units 11:20 16:29 20:23 RBC (3.80-5.40) m/uL Hgb (11.4-16.0) gm/dL Hct (34.0-46.0) % MCV (80.0-100.0) fL RDW (11.5-15.5) % Eosinophils # (0-0.7) k/uL Sodium (137-145) mmol/L BUN (7-17) mg/dL Creatinine (0.52-1.04) mg/dL Glucose (74-99) mg/dL POC Glucose (mg/dL) 150 H 315 H 315 H (70-110) mg/dL Total Protein (6.3-8.2) g/dL 10/16/24 10/16/24 10/16/24 Range/Units 05:29 05:29 06:36 RBC 2.52 L (3.80-5.40) m/uL Hgb 8.1 L (11.4-16.0) gm/dL Hct 25.7 L (34.0-46.0) % MCV 101.9 H (80.0-100.0) fL RDW 17.6 H (11.5-15.5) % Eosinophils # 1.3 H (0-0.7) k/uL Sodium 134 L (137-145) mmol/L BUN 44 H (7-17) mg/dL Creatinine 5.56 H (0.52-1.04) mg/dL Glucose 118 H (74-99) mg/dL POC Glucose (mg/dL) 123 H (70-110) mg/dL Total Protein 5.8 L (6.3-8.2) g/dL 10/16/24 Range/Units 08:39 RBC (3.80-5.40) m/uL Hgb (11.4-16.0) gm/dL Hct (34.0-46.0) % MCV (80.0-100.0) fL RDW (11.5-15.5) % Eosinophils # (0-0.7) k/uL Sodium (137-145) mmol/L BUN (7-17) mg/dL Creatinine (0.52-1.04) mg/dL Glucose (74-99) mg/dL POC Glucose (mg/dL) 220 H (70-110) mg/dL Total Protein (6.3-8.2) g/dL Microbiology - Last 24 Hours (Table) 10/15/24 08:48 Gram Stain - Preliminary Sputum 10/14/24 05:58 Blood Culture - Preliminary Blood Assessment and Plan Assessment: End-stage renal disease on hemodialysis via right-sided chest catheter Right tunneled hemodialysis catheter pain Fevers Plan: 1. May continue to use tunneled dialysis catheter 2. Patient is cleared from vascular surgery for discharge 3. Will plan for outpatient AV graft creation Thank you for this consultation, we will be on standby if anything is further needed please do not hesitate to call us. The impression and plan of care has been dictated as directed. I performed a history and examination of this patient, discussed the same with the dictator. I agree with the dictator's note ,documented as a scribe. Any additional findings or plans will be noted.
[2024-10-16 11:55] LABS: Glucose,Whole Blood 127 mg/dL (70-110)
[2024-10-16 16:30] LABS: Glucose,Whole Blood 256 mg/dL (70-110)
[2024-10-16 20:15] LABS: Glucose,Whole Blood 385 mg/dL (70-110)
[2024-10-17 05:53] LABS: Glucose,Whole Blood 161 mg/dL (70-110)
[2024-10-17 07:34] LABS: African American GFR (CKD) 17 (>60 ml/min/1.73 sqM); Anion Gap 5 mmol/L; Blood Urea Nitrogen 27 mg/dL (7-17); Calcium 9.1 mg/dL (8.4-10.2); Carbon Dioxide 30 mmol/L (22-30); Chloride 98 mmol/L (98-107); Glucose 148 mg/dL (74-99); Non-African American GFR(CKD) 15 (>60 ml/min/1.73 sqM); Potassium 4.5 mmol/L (3.5-5.1); Sodium 133 mmol/L (137-145)
--- NOTE | 2024-10-17 08:24 | P.PN ---
Subjective Progress Note Date: 10/16/24 Principal diagnosis: Reason for follow-up is fever possible pneumonia Patient is a 34-year-old female with a past medical history significant for diabetes mellitus seizure disorder hypertension reflux patient also with a history of end-stage renal disease on hemodialysis through the right subclavian permacatheter patient has been brought into the hospital for evaluat ion of chest pain along with shortness of breath patient also spiked a fever prompting this consultation. On today's evaluation that is 10/16/2024, patient has been afebrile, patient is complaining of shortness of breath and also having a cough but not bring up any sputum some nausea with vomiting abdominal pain no diarrhea patient is currently on 2 L nasal cannula oxygen and was undergoing dialysis at the time of evaluation. The patient white count is 6.5, creatinine is 5.56 blood and sputum cultures currently pending Objective - Vital Signs Vital signs: Vital Signs Temp 98.2 F 10/16/24 08:30 Pulse 81 10/16/24 08:30 Resp 17 10/16/24 08:30 BP 158/92 10/16/24 08:30 Pulse Ox 95 10/16/24 08:30 FiO2 Intake & Output 10/15/24 10/16/24 10/16/24 18:59 06:59 18:59 Intake Total 780 480 Balance 780 480 Weight 62.2 kg Intake: Oral 780 480 Other: Voiding Method Toilet Toilet Toilet # Voids 1 1 0 # Bowel Movements 0 - Exam GENERAL DESCRIPTION: Middle-age female lying in bed in no distress RESPIRATORY SYSTEM: Unlabored breathing , decreased breath sounds at bases HEART: S1 S2 regular rate and rhythm , ABDOMEN: Soft , no tenderness EXTREMITIES: No edema feet - Labs CBC & Chem 7: 10/16/24 05:29 10/17/24 05:41 Labs: Abnormal Lab Results - Last 24 Hours (Table) 10/15/24 10/15/24 10/16/24 Range/Units 16:29 20:23 05:29 RBC 2.52 L (3.80-5.40) m/uL Hgb 8.1 L (11.4-16.0) gm/dL Hct 25.7 L (34.0-46.0) % MCV 101.9 H (80.0-100.0) fL RDW 17.6 H (11.5-15.5) % Eosinophils # 1.3 H (0-0.7) k/uL Sodium (137-145) mmol/L BUN (7-17) mg/dL Creatinine (0.52-1.04) mg/dL Glucose (74-99) mg/dL POC Glucose (mg/dL) 315 H 315 H (70-110) mg/dL Total Protein (6.3-8.2) g/dL 10/16/24 10/16/24 10/16/24 Range/Units 05:29 06:36 08:39 RBC (3.80-5.40) m/uL Hgb (11.4-16.0) gm/dL Hct (34.0-46.0) % MCV (80.0-100.0) fL RDW (11.5-15.5) % Eosinophils # (0-0.7) k/uL Sodium 134 L (137-145) mmol/L BUN 44 H (7-17) mg/dL Creatinine 5.56 H (0.52-1.04) mg/dL Glucose 118 H (74-99) mg/dL POC Glucose (mg/dL) 123 H 220 H (70-110) mg/dL Total Protein 5.8 L (6.3-8.2) g/dL 10/16/24 Range/Units 11:52 RBC (3.80-5.40) m/uL Hgb (11.4-16.0) gm/dL Hct (34.0-46.0) % MCV (80.0-100.0) fL RDW (11.5-15.5) % Eosinophils # (0-0.7) k/uL Sodium (137-145) mmol/L BUN (7-17) mg/dL Creatinine (0.52-1.04) mg/dL Glucose (74-99) mg/dL POC Glucose (mg/dL) 127 H (70-110) mg/dL Total Protein (6.3-8.2) g/dL Microbiology - Last 24 Hours (Table) 10/15/24 08:48 Gram Stain - Preliminary Sputum 10/14/24 05:58 Blood Culture - Preliminary Blood Assessment and Plan (1) Sepsis Current Visit: Yes Status: Acute Code(s): A41.9 - SEPSIS, UNSPECIFIED ORGANISM SNOMED Code(s): 57508097 (2) Pneumonia Current Visit: Yes Status: Acute Code(s): J18.9 - PNEUMONIA, UNSPECIFIED ORGANISM SNOMED Code(s): 453611442 Plan: 1patient with sepsis in this patient who did have fever tachycardia elevated white count admission presentation has been mostly chest pain which seem to be around her catheter site however no redness has been noticed with a question of possible dialysis catheter infection versus pneumonia less likely but not entirely excluded is considered other obvious focus of infection. 2blood cultures has been obtained from dialysis catheter which are so far negative, sputum culture currently pending 3patient is more behaving as pneumonia rather than line infection sputum culture are currently pending continue with the cefepime and monitor clinical course closely Dictation was produced using [employer] dictation software. please excuse any grammatical, word or spelling errors. Time with Patient: Less than 30
[2024-10-17 09:05] VITALS: RESP 16
--- NOTE | 2024-10-17 10:09 | P.PN ---
Subjective Patient is seen in follow-up for end-stage renal disease. Underwent hemodialysis yesterday with 3.5 L ultrafiltration. Undergoing another treatment currently. Hemodynamically stable. On room air. Vital signs are stable. General: No acute distress. HEENT: Head exam is unremarkable. LUNGS: No audible rhonchi or wheezes. HEART: Rate and Rhythm are regular. ABDOMEN: Nontender. EXTREMITITES: No edema. Objective - Vital Signs Vital signs: Vital Signs Temp 98.4 F 10/17/24 09:03 Pulse 80 10/17/24 09:05 Resp 16 10/17/24 09:05 BP 151/78 10/17/24 09:03 Pulse Ox 97 10/17/24 09:03 FiO2 Intake & Output 10/16/24 10/17/24 10/17/24 18:59 06:59 18:59 Intake Total 1480 500 10 Output Total 7500 Balance -6020 500 10 Weight 62.4 kg Intake: IV 20 20 10 Invasive Line 3 20 20 10 Oral 960 480 Hemodialysis 500 Output: Hemodialysis 4000 Hemodialysis Net Amount 3500 Other: Voiding Method Toilet Toilet Toilet # Voids 0 # Bowel Movements 0 - Labs CBC & Chem 7: 10/16/24 05:29 10/17/24 05:41 Labs: Abnormal Lab Results - Last 24 Hours (Table) 10/16/24 10/16/24 10/16/24 Range/Units 11:52 16:26 20:14 Sodium (137-145) mmol/L BUN (7-17) mg/dL Creatinine (0.52-1.04) mg/dL Glucose (74-99) mg/dL POC Glucose (mg/dL) 127 H 256 H 385 H (70-110) mg/dL 10/17/24 10/17/24 Range/Units 05:41 05:52 Sodium 133 L (137-145) mmol/L BUN 27 H (7-17) mg/dL Creatinine 3.84 H (0.52-1.04) mg/dL Glucose 148 H (74-99) mg/dL POC Glucose (mg/dL) 161 H (70-110) mg/dL Microbiology - Last 24 Hours (Table) 10/15/24 08:48 Gram Stain - Final Sputum Sputum Culture - Final 10/11/24 10:27 Blood Culture - Final Blood 10/14/24 05:58 Blood Culture - Preliminary Blood Assessment and Plan Plan: Assessment: 1. End-stage renal disease maintained on hemodialysis on Wednesday. Has permacath. 2. Chest pain. She is concerned that the dialysis catheter is a source of the pain. Seen by vascular surgery. No interventions planned. 3. Hypertension with chronic kidney disease. Stable. 4. Diabetes mellitus. 5. Chronic kidney disease mineral bone disease maintained on PhosLo. 6. Anemia of chronic kidney disease. Iron deficiency noted. 7. Pneumonia on antibiotics. ID following. Plan: Currently seen while undergoing hemodialysis. Maintain IV iron. Blood culture negative so far. Potential discharge today.
--- NOTE | 2024-10-17 10:10 | P.PN ---
Subjective Progress Note Date: 10/17/24 Principal diagnosis: Pneumonia Patient seen and examined today as a follow-up. Patient is going to have dialysis today. She is on a Wednesday schedule. States that she still has some discomfort at the catheter site in her right chest however no shortness of breath. She has had no fevers or chills. Catheter site is clean dry and intact without any signs of infection. Repeat blood culture is negative at 48 hours. Sputum culture is pending. Objective - Vital Signs Vital signs: Vital Signs Temp 98.2 F 10/17/24 04:00 Pulse 75 10/17/24 04:00 Resp 17 10/17/24 04:00 BP 183/91 10/17/24 04:00 Pulse Ox 97 10/17/24 04:00 FiO2 Intake & Output 10/16/24 10/17/24 10/17/24 18:59 06:59 18:59 Intake Total 1480 500 Output Total 7500 Balance -6020 500 Weight 62.4 kg Intake: IV 20 20 Invasive Line 3 20 20 Oral 960 480 Hemodialysis 500 Output: Hemodialysis 4000 Hemodialysis Net Amount 3500 Other: Voiding Method Toilet Toilet # Voids 0 # Bowel Movements 0 - Exam General appearance: The patient is alert, oriented, appears in no acute d istress. HET: Head is normocephalic and atraumatic. Neck: Supple. Chest: Right upper chest wall dialysis catheter with dressing clean dry and intact. No surrounding erythema or drainage. Abdomen: Soft, nontender, nondistended. Extremities: Normal skin color and turgor. Neurological: No focal deficits. Alert and oriented. - Labs CBC & Chem 7: 10/16/24 05:29 10/17/24 05:41 Labs: Abnormal Lab Results - Last 24 Hours (Table) 10/16/24 10/16/24 10/16/24 Range/Units 11:52 16:26 20:14 Sodium (137-145) mmol/L BUN (7-17) mg/dL Creatinine (0.52-1.04) mg/dL Glucose (74-99) mg/dL POC Glucose (mg/dL) 127 H 256 H 385 H (70-110) mg/dL 10/17/24 10/17/24 Range/Units 05:41 05:52 Sodium 133 L (137-145) mmol/L BUN 27 H (7-17) mg/dL Creatinine 3.84 H (0.52-1.04) mg/dL Glucose 148 H (74-99) mg/dL POC Glucose (mg/dL) 161 H (70-110) mg/dL Microbiology - Last 24 Hours (Table) 10/15/24 08:48 Gram Stain - Final Sputum Sputum Culture - Final 10/11/24 10:27 Blood Culture - Final Blood 10/14/24 05:58 Blood Culture - Preliminary Blood Assessment and Plan Assessment: End-stage renal disease on hemodialysis via right-sided chest catheter Right tunneled hemodialysis catheter pain Fevers, resolved likely secondary to pneumonia Plan: 1. May continue to use tunneled dialysis catheter 2. Patient is cleared from vascular surgery for discharge 3. Will plan for outpatient AV graft creation, tentatively scheduled for 10/19/2024 if patient is discharged. This was discussed with patient as well as infectious disease. Thank you for this consultation, we will be on standby if anything is further needed please do not hesitate to call us. The impression and plan of care has been dictated as directed. Dr. Yarbrough I performed a history and examination of this patient, discussed the same with the dictator. I agree with the dictator's note ,documented as a scribe. Any additional findings or plans will be noted.
[2024-10-17 12:01] LABS: Glucose,Whole Blood 185 mg/dL (70-110)
--- NOTE | 2024-10-17 16:07 | P.PN ---
Subjective Progress Note Date: 10/17/24 Principal diagnosis: Reason for follow-up is fever possible pneumonia Patient is a 34-year-old female with a past medical history significant for diabetes mellitus seizure disorder hypertension reflux patient also with a history of end-stage renal disease on hemodialysis through the right subclavian permacatheter patient has been brought into the hospital for evaluat ion of chest pain along with shortness of breath patient also spiked a fever prompting this consultation. On today's evaluation that is 10/17/2024, Patient is afebrile this morning patient is breathing slightly comfortably and is on room air improvement in the chest pain cough is also decreased some nausea but no vomiting no abdominal pain or diarrhea. Patient did have a creatinine 3.84 blood culture remains to be negative sputum negative Objective - Vital Signs Vital signs: Vital Signs Temp 98.4 F 10/17/24 09:03 Pulse 80 10/17/24 09:05 Resp 16 10/17/24 09:05 BP 151/78 10/17/24 09:03 Pulse Ox 97 10/17/24 09:03 FiO2 Intake & Output 10/16/24 10/17/24 10/17/24 18:59 06:59 18:59 Intake Total 1480 500 10 Output Total 7500 Balance -6020 500 10 Weight 62.4 kg Intake: IV 20 20 10 Invasive Line 3 20 20 10 Oral 960 480 Hemodialysis 500 Output: Hemodialysis 4000 Hemodialysis Net Amount 3500 Other: Voiding Method Toilet Toilet Toilet # Voids 0 # Bowel Movements 0 - Exam GENERAL DESCRIPTION: Middle-age female lying in bed in no distress RESPIRATORY SYSTEM: Unlabored breathing , decreased breath sounds at bases HEART: S1 S2 regular rate and rhythm , ABDOMEN: Soft , no tenderness EXTREMITIES: No edema feet - Labs CBC & Chem 7: 10/16/24 05:29 10/17/24 05:41 Labs: Abnormal Lab Results - Last 24 Hours (Table) 10/16/24 10/16/24 10/17/24 Range/Units 16:26 20:14 05:41 Sodium 133 L (137-145) mmol/L BUN 27 H (7-17) mg/dL Creatinine 3.84 H (0.52-1.04) mg/dL Glucose 148 H (74-99) mg/dL POC Glucose (mg/dL) 256 H 385 H (70-110) mg/dL 10/17/24 10/17/24 Range/Units 05:52 11:59 Sodium (137-145) mmol/L BUN (7-17) mg/dL Creatinine (0.52-1.04) mg/dL Glucose (74-99) mg/dL POC Glucose (mg/dL) 161 H 185 H (70-110) mg/dL Microbiology - Last 24 Hours (Table) 10/15/24 08:48 Gram Stain - Final Sputum Sputum Culture - Final 10/11/24 10:27 Blood Culture - Final Blood 10/14/24 05:58 Blood Culture - Preliminary Blood Assessment and Plan (1) Sepsis Current Visit: Yes Status: Acute Code(s): A41.9 - SEPSIS, UNSPECIFIED ORGANISM SNOMED Code(s): 59339214 (2) Pneumonia Current Visit: Yes Status: Acute Code(s): J18.9 - PNEUMONIA, UNSPECIFIED ORGANISM SNOMED Code(s): 506804886 Plan: 1patient with sepsis in this patient who did have fever tachycardia elevated white count admission presentation has been mostly chest pain which seem to be around her catheter site however no redness has been noticed with a question of possible dialysis catheter infection versus pneumonia less likely but not entire ly excluded is considered other obvious focus of infection. 2blood cultures has been obtained from dialysis catheter which are so far negative, sputum culture currently pending 3patient did have clinical improvement bilateral sputum culture have been negative she will finish therapy with oral Ceftin and a close outpatient follow- up discussed with the SCREEN ROLLER for admitting team working on discharge Dictation was produced using Contrib dictation software. please excuse any grammatical, word or spelling errors.
[2024-10-17 18:42] VITALS: BP 169/97; PULSE 83; TEMP 98
--- NOTE | 2024-10-19 07:08 | CDI ---
Documentation Clarification Form Date: 10/19/2024 06:52:28 AM From: Temi Martins Admit Date: 10/10/2024 02:40:00 PM Patient Name: Marita Perrin Visit Number: [id number] Discharge Date: 10/17/2024 04:27:00 PM ATTENTION: The Clinical Documentation Specialists (CDI) and [facility] Coding Staff appreciate your assistance in clarifying documentation. Please respond to the clarification below the line at the bottom and electronically sign. The CDI & [facility] Coding staff will review the response and follow-up if needed. Please note: Queries are made part of the Legal Health Record. If you have any questions, please contact the author of this message via ITS. Doctor/Provider: Annette Read Per ID consult and PN's 10/13 - 10/17 Sepsis and pneumonia are documented. Patient with fever, tachycardia and elevated WBC's. Based on this information and the findings below, is there an additional diagnosis that is clinically appropriate for this patient? History/Risk Factors: ESRD on dialysis, DM type 1 uncontrolled, patient on transplant list Clinical Indicators: WBC 14.1 Lactic acid: 1.6 Blood cultures: No growth Vitals signs: 100.1 F, 87-104 bpm, 100% RA Treatment: IV antibiotics ID Consult: Sepsis, pneumonia No sign of infection in dialysis catheter Antibiotics: Vancomycin, Cefepime Is there an additional diagnosis that is clinically appropriate for this patient? [ x ] Sepsis due to pneumonia, present on admission [ ] Sepsis due to dialysis cath site POA [ ] Sepsis ruled out [ ] SIRS, without underlying infectious process [ ] No additional diagnosis/not clinically significant [ ] Other, please specify [ ] Unable to determine SIRS Criteria: 2 or more of the following may indicate SIRS Temperature < 96.8F (36C) or > 101.0F (38.3C) Heart Rate > 90 bpm Respiratory Rate > 20 breaths/min or PaCO2 < 32 mmHg White Blood Cell Count > 12,000 or < 4,000 cells/mm3 or > 10% bands MTDD
== END 2024-10-17 16:27 | disposition home or self-care (01) | DRG 871 ==
LOC: EC 11:35 → 3SCARD 14:40
PROVIDERS: ADMIT Internal Medicine; ATTEND Internal Medicine
PROC: 5A1D70Z Performance of Urinary Filtration, Intermittent, Less than 6 Hours Per Day (ICD-10-PCS; principal; 2024-10-11)
PROC: 05HA33Z Insertion of Infusion Device into Left Brachial Vein, Percutaneous Approach (ICD-10-PCS; principal; 2024-10-11)
DX: A41.9 Sepsis, unspecified organism (principal); I50.31 Acute diastolic (congestive) heart failure; N18.6 End stage renal disease; J18.9 Pneumonia, unspecified organism; I13.2 Hypertensive heart and chronic kidney disease with heart failure and with stage 5 chronic kidney disease, or end stage renal disease; I16.1 Hypertensive emergency; T82.848A Pain due to vascular prosthetic devices, implants and grafts, initial encounter; H46.9 Unspecified optic neuritis; E83.9 Disorder of mineral metabolism, unspecified; F32.A Depression, unspecified; E10.22 Type 1 diabetes mellitus with diabetic chronic kidney disease; Z76.82 Awaiting organ transplant status; Z99.2 Dependence on renal dialysis; E10.319 Type 1 diabetes mellitus with unspecified diabetic retinopathy without macular edema; E03.9 Hypothyroidism, unspecified; E10.43 Type 1 diabetes mellitus with diabetic autonomic (poly)neuropathy; E10.65 Type 1 diabetes mellitus with hyperglycemia; E87.5 Hyperkalemia; K31.84 Gastroparesis; Z79.4 Long term (current) use of insulin; D50.9 Iron deficiency anemia, unspecified; K21.9 Gastro-esophageal reflux disease without esophagitis; D63.1 Anemia in chronic kidney disease; F17.200 Nicotine dependence, unspecified, uncomplicated; G40.909 Epilepsy, unspecified, not intractable, without status epilepticus; Z79.82 Long term (current) use of aspirin; F41.9 Anxiety disorder, unspecified; Z79.890 Hormone replacement therapy; Z79.899 Other long term (current) drug therapy; Z86.73 Personal history of transient ischemic attack (TIA), and cerebral infarction without residual deficits; Z71.3 Dietary counseling and surveillance; Z88.6 Allergy status to analgesic agent; Z88.5 Allergy status to narcotic agent; Z86.19 Personal history of other infectious and parasitic diseases
CPT/HCPCS: 36410; 36415; 71045; 71046; 76770; 76937; 80048; 80053; 80202; 82728; 83540; 83550; 83605; 83880; 84100; 84132; 84145; 84484; 84702; 85025; 85379; 85610; 85730; 87040; 87070; 87205; 87636; 90935; 93005; 94640; 94760; 96372; 96374; 96375; 96376; 99285

== ENCOUNTER 2024-10-19 10:40 | Day surgery (SDC) | payer MEDICARE, OTHER ==
[2024-10-19] MEDS ORDERED: ONDANSETRON 4 MG/2 ML VIAL IVP ONE (11:11)
[2024-10-19] MEDS ORDERED: LACTATED RINGERS 1,000 ML IV SCH (11:11)
[2024-10-19] MEDS ORDERED: LIDOCAINE 1% (10MG/ML) FOR IV START INTRADERMA PRN (11:11)
[2024-10-19] MEDS: SODIUM CHLORIDE 0.9% 500 ML 500 ML IV ONE ×2 (11:40→13:45)
[2024-10-19 11:42] LABS: Glucose,Whole Blood 259 mg/dL (70-110)
[2024-10-19] MEDS: MIDAZOLAM 2 MG/2 ML VIAL IV ONE (12:27)
[2024-10-19] MEDS ORDERED: HEPARIN SODIUM,PORCINE 5,000 UNIT/ML 1 ML VIAL ONE (12:35)
[2024-10-19] MEDS ORDERED: GLYCOPYRROLATE 0.2 MG/ML 2 ML VIAL ONE (12:35)
[2024-10-19] MEDS ORDERED: MIDAZOLAM 2 MG/2 ML VIAL ONE (12:35)
[2024-10-19] MEDS ORDERED: fentaNYL (PF) 50 MCG/ML 2 ML AMP ONE (12:35)
[2024-10-19] MEDS ORDERED: ROPIVACAINE 5 MG/ML 30 ML VIAL ONE (12:35)
[2024-10-19] MEDS ORDERED: PROPOFOL 10 MG/ML 20 ML VIAL IV ONE (12:35)
[2024-10-19] MEDS ORDERED: DEXAMETHASONE SOD PHOSPHATE 4 MG/ML 1 ML VIAL ONE (12:35)
[2024-10-19] MEDS: THROMBIN (BOVINE) 5,000 UNIT VIAL TOPICAL ONE (13:09)
[2024-10-19] MEDS: ceFAZolin 2 GM in SODIUM CHLORIDE 0.9% 500 ML 500 ML IRRIGATION ONE (13:09)
[2024-10-19] MEDS: HEPARIN SODIUM,PORCINE (1 ML) 2,000 UNIT in SODIUM CHLORIDE 0.9% 500 ML 500 ML IRRIGATION ONE (13:09)
[2024-10-19] MEDS: LIDOCAINE 1% INJ 10MG/ML (20 ML MDV) SQ ONE (13:10)
--- NOTE | 2024-10-19 14:49 | P.OP ---
Date of Procedure: 10/19/24 Description of Procedure: Preoperative diagnosis: End-stage kidney disease, currently on dialysis Postoperative diagnosis: Same Procedure: Left upper extremity loop forearm graft Surgeon: Abril Razo D.O. Anesthesia: Regional block with sedation EBL: 25 mL IV fluids: See operative records Urine output: Not measured Drains: None Complications: None immediately apparent Condition: Stable to PACU Operative indication and findings: Patient is a 34-year-old female who has type 1 diabetes and end-stage renal disease. She gets dialysis via right tunneled chest wall catheter. She was found of smaller veins therefore the discussion was made regarding placing a loop forearm graft. Risks and benefits were previously discussed. She seemingly understood and was willing to proceed. Procedure in detail: The patient was taken to the operative suite and placed in supine position. The upper extremity is prepped and draped in usual sterile fashion. A preprocedure timeout was performed, all parties were in agreement. A transverse incision was made just distal to the antecubital fossa and carried down to the level of the brachial artery. It was dissected free circumferentially and proximal and distal Vesseloops were placed. Attention was then turned towards the venous outflow. The most appropriate sized appearing vein was the antecubital vein therefore it was dissected free along with the basilic and cephalic takeoff and encircled proximally and distally. The 4 x 7 propatent graft was then tunneled through a counter incision in the forearm and a subcutaneous tissues. The patient was then heparinized. Flow was occluded through the artery. An arteriotomy was performed and anastomosis to the graft was performed with 6-0 Prolene. The graft was then flushed and the anastomosis was tied. Flow was resumed through the artery. Attention was then turned towards the venous anastomosis. Flow was occluded through the vein and a venotomy was performed. Anastomosis created with 6-0 Prolene. Prior to completion of the anastomosis the graft was flushed as well as the veins themselves. Fow was reinstituted. There remained a palpable pulse proximal and distal to the arterial anastomosis as well as a palpable pulse in the wrist. Thrombin Gelfoam was used for hemostasis. The incision sites were copiously irrigated the subcutaneous tissues were approximately with 3-0 Vicryl in interrupted fashion and the skin was reapproximated with running 4-0 Monocryl. Skin glue was placed. The patient was allowed awaken from anesthesia and transferred to PACU in stable condition having tolerated the procedure well.] Plan - Discharge Summary New Discharge Prescriptions: No Action Magnesium Hydroxide [Milk of Magnesia Concentrate] 7,200 mg PO DAILY PRN PRN Reason: Constipation Lidocaine 4% Patch 1 patch TOPICAL DAILY@0800 Ipratropium-Albuterol Nebulize [Duoneb 0.5 mg-3 mg/3 ml Soln] 3 ml INHALATION RT-TID PRN each PRN Reason: Shortness Of Breath Or Wheezing Biotene Dry Mouth/Throat 10 ml PO BID PRN PRN Reason: DRY MOUTH/THROAT Acetaminophen [Tylenol] 650 mg PO Q4H PRN PRN Reason: Pain Or Fever > 100.5 Darbepoetin Artur [Aranesp] 40 mcg SQ MO Loratadine [Claritin] 5 mg PO DAILY tab Ondansetron [Zofran] 4 mg PO Q8HR PRN #20 tab PRN Reason: Nausea And Vomiting Sertraline [Zoloft] 200 mg PO DAILY@0800 ALPRAZolam [Xanax] 0.25 mg PO BID PRN PRN Reason: Anxiety cloNIDine HCL [Catapres] 0.3 mg PO TID Colchicine [Colcrys] 0.3 mg PO DAILY #15 each Isosorbide Mononitrate ER [Imdur] 120 mg PO DAILY #60 tab Insulin Aspart [NovoLOG Flexpen] 4 units SQ AC-TID Insulin Aspart [NovoLOG Flexpen] See Protocol SQ ACHS cefuroxime axetiL [Ceftin] 500 mg PO BID Insulin Aspart (For Pump) [NovoLOG (For Pump)] 30 units SQ CONTINUOUS Docusate [Colace] 100 mg PO DAILY@0800 polyethylene glycoL 3350 [Miralax] 17 gm PO AC-LUNCH #527 gm Melatonin 1 mg PO HS tab Butalb/APAP/Caff 50-325-40Mg [Fioricet 50-325-40] 1 tab PO Q4HR PRN PRN Reason: Headache Aspirin 81 mg PO DAILY@0800 #30 tab Famotidine [Pepcid] 20 mg PO BID #60 tab Atorvastatin [Lipitor] 40 mg PO DIRECTED Divalproex ER [Depakote ER] 500 mg PO BID@0800,1700 HYDROcodone/APAP 7.5-325MG [[place] 7.5-325] 1 tab PO Q8H PRN PRN Reason: Pain Levothyroxine Sodium [Synthroid] 175 mcg PO DAILY@0600 Metoclopramide [Reglan] 5 mg PO AC-TID PRN PRN Reason: Nausea Pantoprazole [Protonix] 40 mg PO DAILY@0600 traZODone HCL [Desyrel] 50 mg PO HS Calcium Acetate [PhosLo] 2,001 mg PO TID-W/MEALS Calcium Acetate [PhosLo] 667 mg PO DAILY PRN PRN Reason: W/SNACK hydrALAZINE HCL [Apresoline] 100 mg PO TID #90 tab NIFEdipine XL [Procardia XL] 60 mg PO BID #60 tab Labetalol [Trandate] 500 mg PO BID #150 tab Triphrocaps 1mg Cap 1 cap PO DAILY Insulin Glargine,Hum.rec.anlog [Lantus Solostar Pen] 12 units SQ BID Discharge Medication List Docusate [Colace] 100 mg PO DAILY@0800 02/05/24 [History] Lidocaine 4% Patch 1 patch TOPICAL DAILY@0802/05/24 [History] Magnesium Hydroxide [Milk of Magnesia Concentrate] 7,200 mg PO DAILY PRN 02/05/24 [History] Ipratropium-Albuterol Nebulize [Duoneb 0.5 mg-3 mg/3 ml Soln] 3 ml INHALATION RT-TID PRN each 02/14/24 [Rx] polyethylene glycoL 3350 [Miralax] 17 gm PO AC-LUNCH #527 gm 02/14/24 [Rx] Acetaminophen [Tylenol] 650 mg PO Q4H PRN 02/18/24 [History] Biotene Dry Mouth/Throat 10 ml PO BID PRN 02/18/24 [History] Melatonin 1 mg PO HS tab 02/25/24 [Rx] Butalb/APAP/Caff 50-325-40Mg [Fioricet 50-325-40] 1 tab PO Q4HR PRN 03/14/24 [History] Darbepoetin Artur [Aranesp] 40 mcg SQ MO 03/14/24 [History] Loratadine [Claritin] 5 mg PO DAILY tab 03/30/24 [Rx] Aspirin 81 mg PO DAILY@0800 #30 tab 05/18/24 [Rx] Famotidine [Pepcid] 20 mg PO BID #60 tab 07/11/24 [Rx] Ondansetron [Zofran] 4 mg PO Q8HR PRN #20 tab 07/11/24 [Rx] Atorvastatin [Lipitor] 40 mg PO DIRECTED 08/14/24 [History] Divalproex ER [Depakote ER] 500 mg PO BID@0800,1700 08/14/24 [History] HYDROcodone/APAP 7.5-325MG [[place] 7.5-325] 1 tab PO Q8H PRN 08/14/24 [History] Levothyroxine Sodium [Synthroid] 175 mcg PO DAILY@0600 08/14/24 [History] Metoclopramide [Reglan] 5 mg PO AC-TID PRN 08/14/24 [History] Pantoprazole [Protonix] 40 mg PO DAILY@0600 08/14/24 [History] Sertraline [Zoloft] 200 mg PO DAILY@0800 08/14/24 [History] traZODone HCL [Desyrel] 50 mg PO HS 08/14/24 [History] ALPRAZolam [Xanax] 0.25 mg PO BID PRN 09/04/24 [History] Calcium Acetate [PhosLo] 2,001 mg PO TID-W/MEALS 09/04/24 [History] Calcium Acetate [PhosLo] 667 mg PO DAILY PRN 09/04/24 [History] cloNIDine HCL [Catapres] 0.3 mg PO TID 09/04/24 [History] Colchicine [Colcrys] 0.3 mg PO DAILY #15 each 09/23/24 [Rx] Isosorbide Mononitrate ER [Imdur] 120 mg PO DAILY #60 tab 09/23/24 [Rx] Labetalol [Trandate] 500 mg PO BID #150 tab 09/23/24 [Rx] NIFEdipine XL [Procardia XL] 60 mg PO BID #60 tab 09/23/24 [Rx] hydrALAZINE HCL [Apresoline] 100 mg PO TID #90 tab 09/23/24 [Rx] Insulin Aspart [NovoLOG Flexpen] 4 units SQ AC-TID 10/10/24 [History] Insulin Aspart [NovoLOG Flexpen] See Protocol SQ ACHS 10/10/24 [History] Insulin Glargine,Hum.rec.anlog [Lantus Solostar Pen] 12 units SQ BID 10/10/24 [History] Triphrocaps 1mg Cap 1 cap PO DAILY 10/10/24 [History] Insulin Aspart (For Pump) [NovoLOG (For Pump)] 30 units SQ CONTINUOUS 10/19/24 [History] cefuroxime axetiL [Ceftin] 500 mg PO BID 10/19/24 [History] Follow up Appointment(s)/Referral(s): Abril Raoz DO [STAFF PHYSICIAN] - 2 Weeks Activity/Diet/Wound Care/Special Instructions: Resume previous diet. Resume previous home medications. May bathe as previously beginning tomorrow. Protect left upper extremity. Utilize wrap in place for 2 days. Utilize sling Discharge Disposition: HOME SELF-CARE
[2024-10-19 15:01] VITALS: TEMP 97.4
[2024-10-19 15:21] LABS: Glucose,Whole Blood 271 mg/dL (70-110)
[2024-10-19] MEDS: fentaNYL (PF) 50 MCG/ML 2 ML AMP IV PRN (15:24)
[2024-10-19 16:00] VITALS: BP 179/87; RESP 16
[2024-10-19 16:16] VITALS: PULSE 97
--- NOTE | 2024-10-20 07:26 | P.ANPRN ---
Procedure Note - Anesthesia - Nerve Block Performed Left Supraclavicular Single Time Out Performed: Yes Date of Procedure: 10/19/24 Procedure Start Time: : Procedure Stop Time: : Location of Patient: PreOp Indication: Acute Post-Operative Pain, Requested by Surgeon Sedation Type: Sedate with meaningful contact maintained Preparation: Sterile Prep Position: Supine Needle Types: Pajunk Needle Gauge: 21 Ultrasound used to visualize needle placement: Yes Ultrasound used to observe medication spread: Yes Blood Aspirated: No Pain Paresthesia on Injection Noted: No Resistance on Injection: Normal Image Stored and Saved: Yes Events: Uneventful and Well Tolerated (Ropivacaine 0.5% 20 cc plus dexamethasone 4 mg)
== END 2024-10-19 16:30 | disposition home or self-care (01) ==
LOC: OR 10:40
PROVIDERS: ATTEND Surgery
DX: E10.22 Type 1 diabetes mellitus with diabetic chronic kidney disease (principal); I12.0 Hypertensive chronic kidney disease with stage 5 chronic kidney disease or end stage renal disease; N18.6 End stage renal disease; Z99.2 Dependence on renal dialysis; E10.40 Type 1 diabetes mellitus with diabetic neuropathy, unspecified; G89.18 Other acute postprocedural pain; F17.200 Nicotine dependence, unspecified, uncomplicated; Z79.82 Long term (current) use of aspirin; Z79.890 Hormone replacement therapy; Z79.4 Long term (current) use of insulin; Z79.2 Long term (current) use of antibiotics; Z79.899 Other long term (current) drug therapy
CPT/HCPCS: 36830; 64415; 84702; L8670; J2250; J1644; J1100; J0690; J2003; J3010; J2795; J2704; J1596

== ENCOUNTER 2024-10-20 23:54 | Inpatient (IN) | payer MEDICARE, OTHER ==
[2024-10-21] MEDS: cloNIDine HCL 0.1 MG TAB PO STA (00:35)
[2024-10-21] MEDS: NITROGLYCERIN OINT 1 INCH/GM PACKET TOPICAL STA (00:36)
[2024-10-21] MEDS: MORPHINE SULFATE 4 MG/ML SYRINGE IV STA ×2 (00:51→01:41)
[2024-10-21] MEDS: hydrALAZINE HCL 20 MG/ML 1 ML VIAL IVP STA ×2 (00:54→07:32)
[2024-10-21] MEDS: ONDANSETRON 4 MG/2 ML VIAL IVP STA (01:42)
[2024-10-21] MEDS: LORazepam 2 MG/ML INJ IV STA (01:49)
--- NOTE | 2024-10-21 02:04 | US ---
EXAM: US Duplex Left Upper Extremity Veins CLINICAL HISTORY: pain, possible DVT TECHNIQUE: Real-time duplex ultrasound scan of the left upper extremity veins integrating B-mode two-dimensional vascular structure, Doppler spectral analysis, color flow Doppler imaging and compression. COMPARISON: No relevant prior studies available. FINDINGS: Deep veins: Unremarkable. No DVT in the internal jugular, subclavian, axillary, or brachial veins. The veins demonstrate normal color flow, are normally compressible, with normal phasic flow and/or augmentation response. Superficial veins: No thrombus in the visualized basilic and cephalic veins. Dialysis graft in the forearm: The graft appears to be thrombosed. Soft tissues: No acute findings. IMPRESSION: No thrombus in the main deep or superficial veins in the left upper extremity. The dialysis graft in the forearm appears to be thrombosed.
--- NOTE | 2024-10-21 02:48 | ED ---
Upper Extremity HPI - General Chief Complaint: Extremity Injury, Upper Stated Complaint: Left arm swelling Time Seen by Provider: 10/21/24 00:08 Source: EMS Mode of arrival: EMS - History of Present Illness Initial Comments: This patient is a 34-year-old woman with history of diabetes, hypertension, end- stage renal disease on hemodialysis. The patient had left forearm loop graft for dialysis which was placed October 19 at this [address] by Dr. Razo. The patient notes that over the last hours she has been developing swelling and pain to the left forearm. She states her hand feels cold. The patient has not noted fevers. No chest pain or dyspnea. She does state that her last dialysis session was and was normal. MD Complaint: Injury to:: left, forearm -: hour(s) Other Extremity Injury: Forearm: Left Other Injuries: none Handedness: right Place: home Improves With: none Worsens With: none Context: other (Post surgical) Associated Symptoms: denies other symptoms - Related Data Home Medications Medication Instructions Recorded Confirmed Docusate [Colace] 100 mg PO DAILY@0800 02/05/24 10/19/24 Lidocaine 4% Patch 1 patch TOPICAL DAILY@0800 02/05/24 10/19/24 Magnesium Hydroxide [Milk of 7,200 mg PO DAILY PRN 02/05/24 10/19/24 Magnesia Concentrate] Acetaminophen [Tylenol] 650 mg PO Q4H PRN 02/18/24 10/19/24 Biotene Dry Mouth/Throat 10 ml PO BID PRN 02/18/24 10/19/24 Butalb/APAP/Caff 50-325-40Mg 1 tab PO Q4HR PRN 03/14/24 10/19/24 [Fioricet 50-325-40] Darbepoetin Artur [Aranesp] 40 mcg SQ MO 03/14/24 10/19/24 Atorvastatin [Lipitor] 40 mg PO DIRECTED 08/14/24 10/19/24 Divalproex ER [Depakote ER] 500 mg PO BID@0800,1700 08/14/24 10/19/24 HYDROcodone/APAP 7.5-325MG [[place] 1 tab PO Q8H PRN 08/14/24 10/19/24 7.5-325] Levothyroxine Sodium [Synthroid] 175 mcg PO DAILY@0600 08/14/24 10/19/24 Metoclopramide [Reglan] 5 mg PO AC-TID PRN 08/14/24 10/19/24 Pantoprazole [Protonix] 40 mg PO DAILY@0600 08/14/24 10/19/24 Sertraline [Zoloft] 200 mg PO DAILY@0800 08/14/24 10/19/24 traZODone HCL [Desyrel] 50 mg PO HS 08/14/24 10/19/24 ALPRAZolam [Xanax] 0.25 mg PO BID PRN 09/04/24 10/19/24 Calcium Acetate [PhosLo] 2,001 mg PO TID-W/MEALS 09/04/24 10/19/24 Calcium Acetate [PhosLo] 667 mg PO DAILY PRN 09/04/24 10/19/24 cloNIDine HCL [Catapres] 0.3 mg PO TID 09/04/24 10/19/24 Insulin Aspart [NovoLOG Flexpen] 4 units SQ AC-TID 10/10/24 10/19/24 Insulin Aspart [NovoLOG Flexpen] See Protocol SQ ACHS 10/10/24 10/19/24 Insulin Glargine,Hum.rec.anlog 12 units SQ BID 10/10/24 10/19/24 [Lantus Solostar Pen] Triphrocaps 1mg Cap 1 cap PO DAILY 10/10/24 10/19/24 Insulin Aspart (For Pump) [NovoLOG 30 units SQ CONTINUOUS 10/19/24 10/19/24 (For Pump)] cefuroxime axetiL [Ceftin] 500 mg PO BID 10/19/24 10/19/24 Previous Rx's Medication Instructions Recorded Ipratropium-Albuterol Nebulize 3 ml INHALATION RT-TID PRN each 02/14/24 [Duoneb 0.5 mg-3 mg/3 ml Soln] polyethylene glycoL 3350 [Miralax] 17 gm PO AC-LUNCH #527 gm 02/14/24 Melatonin 1 mg PO HS tab 02/25/24 Loratadine [Claritin] 5 mg PO DAILY tab 03/30/24 Aspirin 81 mg PO DAILY@0800 #30 tab 05/18/24 Famotidine [Pepcid] 20 mg PO BID #60 tab 07/11/24 Ondansetron [Zofran] 4 mg PO Q8HR PRN #20 tab 07/11/24 Colchicine [Colcrys] 0.3 mg PO DAILY #15 each 09/23/24 Isosorbide Mononitrate ER [Imdur] 120 mg PO DAILY #60 tab 09/23/24 Labetalol [Trandate] 500 mg PO BID #150 tab 09/23/24 NIFEdipine XL [Procardia XL] 60 mg PO BID #60 tab 09/23/24 hydrALAZINE HCL [Apresoline] 100 mg PO TID #90 tab 09/23/24 Allergies Allergy/AdvReac Type Severity Reaction Status Date / Time hydromorphone HCl Allergy Anaphylaxis Verified 10/21/24 00:12 [From Dilaudid] propoxyphene Allergy Rash/Hives Verified 10/21/24 00:12 [From Darvocet-N] tramadol Allergy Anaphylaxis Verified 10/21/24 00:12 ibuprofen [From Motrin] AdvReac unable to Verified 10/21/24 00:12 take due to kidney disease venom-honey bee AdvReac passes out Verified 10/21/24 00:12 [bee venom (honey bee)] Review of Systems ROS Statement: Those systems with pertinent positive or pertinent negative responses have been documented in the HPI. ROS Other: All systems not noted in ROS Statement are negative. Constitutional: Denies: fever, chills Respiratory: Denies: cough, dyspnea Cardiovascular: Denies: chest pain, palpitations, edema, syncope Gastrointestinal: Denies: abdominal pain, nausea, vomiting, diarrhea Genitourinary: Reports: other (Urinates approximately every other day) Musculoskeletal: Reports: as per HPI, myalgia. Denies: back pain Skin: Denies: rash, lesions Neurological: Reports: paresthesias. Denies: headache, weakness, numbness Hematological/Lymphatic: Denies: easy bleeding Past Medical History Past Medical History: Diabetes Mellitus, GERD/Reflux, Hypertension, Renal Disease, Seizure Disorder, Thyroid Disorder Additional Past Medical History / Comment(s): Neuropathy, last seizure 2020, gastroparesis, headaches with dialysis, states "fast heart rate" since giving ., receives Hemodialysis Wednesday- and Saturdays at [facility]., right chest hemodialysis catheter., severe HTN. patient awaiting Kidney and Pancrease Transplant. , states sometimes she has had stroke -like symptoms but no stroke., hx of c-diff 2013. History of Any Multi-Drug Resistant Organisms: C-DIFF Date of last positivie culture/infection: unknown MDRO Source:: stool Past Surgical History: Adenoidectomy, Section, Cholecystectomy, Orthopedic Surgery, Tonsillectomy Additional Past Surgical History / Comment(s): 2 KNEE SCOPES, EAR TUBES, additional left knee surgery related to fracture, new port a cath sept , eye surgeries for diabetic retinopathy. Past Anesthesia/Blood Transfusion Reactions: Previous Problems w/ Anesthesia Additional Past Anesthesia/Blood Transfusion Reaction / Comment(s): confusion Past Psychological History: Anxiety, Depression Smoking Status: Current every day smoker Past Alcohol Use History: None Reported Past Drug Use History: Marijuana, Methamphetamine - Past Family History Father History Unknown: Yes Family Medical History: Unable to Obtain Mother History Unknown: Yes Family Medical History: No Reported History Grandfather History Unknown: Yes Family Medical History: Coronary Artery Disease (CAD) Additional Family Medical History / Comment(s): Diabetes mellitus type 2 General Exam General appearance: alert, in no apparent distress Head exam: Present: atraumatic, normocephalic Eye exam: Present: normal appearance. Absent: scleral icterus, conjunctival injection Neck exam: Present: normal inspection, full ROM. Absent: tenderness Respiratory exam: Present: normal lung sounds bilaterally. Absent: respiratory distress, wheezes, rales Cardiovascular Exam: Present: normal rhythm, tachycardia, systolic murmur, gallop. Absent: diastolic murmur, rubs GI/Abdominal exam: Present: soft. Absent: distended, tenderness, guarding, r ebound, rigid, mass, pulsatile mass, hernia Extremities exam: Present: normal inspection, normal capillary refill, other (The patient's left forearm graft does not have a thrill or home. The left hand is cool but there is capillary refill and there is radial pulse.). Absent: pedal edema, calf tenderness Back exam: Present: normal inspection Neurological exam: Present: alert Skin exam: Present: warm, dry, intact, normal color. Absent: rash Course Vital Signs 10/21/24 10/21/24 10/21/24 00:04 01:01 01:30 Temperature 98.3 F Pulse Rate 116 H 98 114 H Pulse Rate [ Pulse Oximetery ] Respiratory 20 20 20 Rate Blood Pressure 205/124 208/119 200/120 Blood Pressure [Right Arm] O2 Sat by Pulse 99 98 98 Oximetry 10/21/24 10/21/24 10/21/24 01:51 05:00 06:08 Temperature Pulse Rate 111 H 93 98 Pulse Rate [ Pulse Oximetery ] Respiratory 18 18 18 Rate Blood Pressure 187/111 166/98 153/96 Blood Pressure [Right Arm] O2 Sat by Pulse 97 96 96 Oximetry 10/21/24 06:48 Temperature 98 F Pulse Rate Pulse Rate [ 99 Pulse Oximetery ] Respiratory 16 Rate Blood Pressure Blood Pressure 199/115 [Right Arm] O2 Sat by Pulse 96 Oximetry Medical Decision Making - Medical Decision Making Patient went for ultrasound of the left forearm which does not reveal DVT but does appear consistent with a thrombosed AV graft. Case discussed with Dr. Yarbrough covering vascular surgeon and will see the patient. Patient placed on heparin pending evaluation. - Lab Data Result diagrams: 10/21/24 03:27 10/21/24 03:27 Lab Results 10/21/24 10/21/24 10/21/24 Range/Units 03:27 03:27 03:27 WBC 12.7 H (3.8-10.6) k/uL RBC 3.32 L (3.80-5.40) m/uL Hgb 10.5 L (11.4-16.0) gm/dL Hct 32.0 L (34.0-46.0) % MCV 96.4 D (80.0-100.0) fL MCH 31.6 (25.0-35.0) pg MCHC 32.8 (31.0-37.0) g/dL RDW 17.2 H (11.5-15.5) % Plt Count 429 (150-450) k/uL MPV 7.6 Neutrophils % 68 % Lymphocytes % 14 % Monocytes % 7 % Eosinophils % 8 % Basophils % 1 % Neutrophils # 8.6 H (1.3-7.7) k/uL Lymphocytes # 1.8 (1.0-4.8) k/uL Monocytes # 0.9 (0-1.0) k/uL Eosinophils # 1.0 H (0-0.7) k/uL Basophils # 0.1 (0-0.2) k/uL Anisocytosis Slight PT 11.2 (10.0-12.5) sec INR 1.0 (<1.2) APTT 26.2 (22.0-30.0) sec Sodium 133 L (137-145) mmol/L Potassium 4.2 (3.5-5.1) mmol/L Chloride 96 L (98-107) mmol/L Carbon Dioxide 28 (22-30) mmol/L Anion Gap 9 mmol/L BUN 57 H (7-17) mg/dL Creatinine 7.02 H* (0.52-1.04) mg/dL Est GFR (CKD-EPI)AfAm 8 (>60 ml/min/1.73 sqM) Est GFR (CKD-EPI)NonAf 7 (>60 ml/min/1.73 sqM) Glucose 98 (74-99) mg/dL Calcium 9.1 (8.4-10.2) mg/dL Total Bilirubin 0.5 (0.2-1.3) mg/dL AST 51 H (14-36) U/L ALT 12 (4-34) U/L Alkaline Phosphatase 99 (38-126) U/L Total Protein 6.6 (6.3-8.2) g/dL Albumin 4.1 (3.5-5.0) g/dL - EKG Data -: EKG Interpreted by Ne EKG shows normal: sinus rhythm, axis (Normal), intervals (Normal), QRS complexes (Normal) Rate: tachycardia (115 bpm) Interpretation: nonspecific ST-T wave changes Disposition
[2024-10-21] MEDS: HEPARIN SODIUM 1,000 UN/ML (10ML VL) IV ONE (03:24)
[2024-10-21] MEDS: HEPARIN SOD,PORK IN 0.45% NACL 25,000 UNIT in 0.45% NACL 1 250ML.BAG IV SCH (03:25)
[2024-10-21 03:41] LABS: Anisocytosis Slight; Basophils # (A) 0.1 k/uL (0-0.2); Basophils % (A) 1 %; Eosinophils % (A) 8 %; HGB 10.5 gm/dL (11.4-16.0); Lymphocytes # (A) 1.8 k/uL (1.0-4.8); Lymphocytes % (A) 14 %; MCH 31.6 pg (25.0-35.0); MCHC 32.8 g/dL (31.0-37.0); Mean Platelet Volume 7.6; Monocytes # (A) 0.9 k/uL (0-1.0); Monocytes % (A) 7 %; Neutrophils # (A) 8.6 k/uL (1.3-7.7); Neutrophils % (A) 68 %; Platelet Count 429 k/uL (150-450); RBC 3.32 m/uL (3.80-5.40); RDW 17.2 % (11.5-15.5); WBC 12.7 k/uL (3.8-10.6)
[2024-10-21 03:50] LABS: Partial Thromboplastin Time 26.2 sec (22.0-30.0); Prothrombin Time 11.2 sec (10.0-12.5)
[2024-10-21 03:55] LABS: MCV 96.4 fL (80.0-100.0)
[2024-10-21 04:07] LABS: ALT 12 U/L (4-34); AST 51 U/L (14-36); African American GFR (CKD) 8 (>60 ml/min/1.73 sqM); Albumin 4.1 g/dL (3.5-5.0); Alkaline Phosphatase 99 U/L (38-126); Anion Gap 9 mmol/L; Blood Urea Nitrogen 57 mg/dL (7-17); Calcium 9.1 mg/dL (8.4-10.2); Carbon Dioxide 28 mmol/L (22-30); Chloride 96 mmol/L (98-107); Glucose 98 mg/dL (74-99); Non-African American GFR(CKD) 7 (>60 ml/min/1.73 sqM); Potassium 4.2 mmol/L (3.5-5.1); Sodium 133 mmol/L (137-145); Total Bilirubin 0.5 mg/dL (0.2-1.3); Total Protein 6.6 g/dL (6.3-8.2)
[2024-10-21] MEDS ORDERED: MAG HYDROX/AL HYDROX/SIMETH 30 ML CUP PO PRN (04:07)
[2024-10-21] MEDS ORDERED: ACETAMINOPHEN TAB 325 MG TAB PO PRN (04:07)
[2024-10-21] MEDS ORDERED: NALOXONE 0.4 MG/ML 1 ML VIAL IV PRN (04:07)
[2024-10-21] MEDS: MORPHINE SULFATE 4 MG/ML SYRINGE IV PRN (06:33)
[2024-10-21] MEDS: LABETALOL 100 MG TAB PO STA (07:33)
[2024-10-21] MEDS: ONDANSETRON 4 MG/2 ML VIAL IVP PRN (07:38)
[2024-10-21] MEDS ORDERED: IPRATROPIUM-ALBUTEROL 3 ML NEB INHALATION PRN (07:48)
[2024-10-21] MEDS: HYDROcodone/APAP 7.5-325MG 1 EACH TAB PO PRN (08:32)
[2024-10-21] MEDS: ALPRAZolam 0.25 MG TAB PO PRN (08:32)
[2024-10-21] MEDS ORDERED: FAMOTIDINE 20 MG TAB PO SCH (09:00)
[2024-10-21] MEDS: hydrALAZINE HCL 50 MG TAB PO SCH (09:01)
[2024-10-21] MEDS: LORATADINE 10 MG TAB PO SCH (09:01)
[2024-10-21] MEDS: ISOSORBIDE MONONITRATE ER 60 MG TAB.ER.24H PO SCH (09:01)
[2024-10-21] MEDS: FAMOTIDINE 20 MG TAB PO SCH (09:02)
[2024-10-21] MEDS: DIVALPROEX ER 500 MG TAB.ER.24H PO SCH (09:02)
[2024-10-21] MEDS: SERTRALINE 100 MG TAB PO SCH (09:02)
[2024-10-21] MEDS: cloNIDine HCL 0.1 MG TAB PO SCH (09:02)
[2024-10-21] MEDS: MORPHINE SULFATE 4 MG/ML SYRINGE IVP STA (09:37)
[2024-10-21] MEDS: HEPARIN SODIUM 1,000 UN/ML (10ML VL) IV PRN (11:20)
[2024-10-21] MEDS: ASPIRIN 81 MG PO SCH (11:20)
[2024-10-21] MEDS: NITROGLYCERIN OINT 1 INCH/GM PACKET TOPICAL SCH (11:21)
--- NOTE | 2024-10-21 11:24 | P.GSCN ---
History of Present Illness Consult date: 10/21/24 Reason for Consult: left upper extremity pain and thrombosed graft History of present illness: 34 year old female with ESRD on HD via right chest catheter who underwent left upper extremity loop forearm AVG creation on presented to the hospital secondary to pain in the left arm, fingers and hand throughout the day and into the night to the point where she was unable to sleep or move her hand. She was seen and evaluated in the ER and underwent ultrasound that demonstrated thrombosed graft and poor flow to the hand. This morning according to her mom her hand was cold and no pulse was palpated. She was placed on heparin drip and had a warm blanket placed over her hand and fingers and has noticed some improvement with her pain and movement of her fingers. She denies any fevers, chills, chest pain or shortness of breath. Review of Systems All systems: negative (what is mentioned in the PMH) Past Medical History Past Medical History: Diabetes Mellitus, GERD/Reflux, Hypertension, Renal Disease, Seizure Disorder, Thyroid Disorder Additional Past Medical History / Comment(s): Neuropathy, last seizure 2020, gastroparesis, headaches with dialysis, states "fast heart rate" since giving ., receives Hemodialysis Wednesday- and Saturdays at [facility] right chest hemodialysis catheter., severe HTN. patient awaiting Kidney and Pancrease Transplant. , states sometimes she has had stroke -like symptoms but no stroke., hx of c-diff 2013. History of Any Multi-Drug Resistant Organisms: C-DIFF Year Discovered:: unknown MDRO Source:: stool Past Surgical History: Adenoidectomy, Section, Cholecystectomy, Orthopedic Surgery, Tonsillectomy Additional Past Surgical History / Comment(s): 2 KNEE SCOPES, EAR TUBES, additional left knee surgery related to fracture, new port a cath jul 29, eye surgeries for diabetic retinopathy. Past Anesthesia/Blood Transfusion Reactions: Previous Problems w/ Anesthesia Additional Past Anesthesia/Blood Transfusion Reaction / Comm: confusion Smoking Status: Current every day smoker - Past Family History Father History Unknown: Yes Family Medical History: Unable to Obtain Mother History Unknown: Yes Family Medical History: No Reported History Grandfather History Unknown: Yes Family Medical History: Coronary Artery Disease (CAD) Additional Family Medical History / Comment(s): Diabetes mellitus type 2 Medications and Allergies Home Medications Medication Instructions Recorded Confirmed Type RX: Docusate [Colace] 100 mg PO DAILY@0800 02/05/24 10/19/24 History RX: Lidocaine 4% Patch 1 patch TOPICAL DAILY@0800 02/05/24 10/19/24 History RX: Magnesium Hydroxide [Milk of 7,200 mg PO DAILY PRN 02/05/24 10/19/24 History Magnesia Concentrate] RX: Ipratropium-Albuterol Nebulize 3 ml INHALATION RT-TID PRN each 02/14/24 10/19/24 Rx [Duoneb 0.5 mg-3 mg/3 ml Soln] RX: polyethylene glycoL 3350 17 gm PO AC-LUNCH #527 gm 02/14/24 10/19/24 Rx [Miralax] Biotene Dry Mouth/Throat 10 ml PO BID PRN 02/18/24 10/19/24 History RX: Acetaminophen [Tylenol] 650 mg PO Q4H PRN 02/18/24 10/19/24 History RX: Melatonin 1 mg PO HS tab 02/25/24 10/19/24 Rx RX: Butalb/APAP/Caff 50-325-40Mg 1 tab PO Q4HR PRN 03/14/24 10/19/24 History [Fioricet 50-325-40] RX: Darbepoetin Artur [Aranesp] 40 mcg SQ MO 03/14/24 10/19/24 History RX: Loratadine [Claritin] 5 mg PO DAILY tab 03/30/24 10/19/24 Rx RX: Aspirin 81 mg PO DAILY@0800 #30 tab 05/18/24 10/19/24 Rx RX: Famotidine [Pepcid] 20 mg PO BID #60 tab 07/11/24 10/19/24 Rx RX: Ondansetron [Zofran] 4 mg PO Q8HR PRN #20 tab 07/11/24 10/19/24 Rx RX: Atorvastatin [Lipitor] 40 mg PO DIRECTED 08/14/24 10/19/24 History RX: Divalproex ER [Depakote ER] 500 mg PO BID@0800,1700 08/14/24 10/19/24 Hist ory RX: HYDROcodone/APAP 7.5-325MG 1 tab PO Q8H PRN 08/14/24 10/19/24 History [[place] 7.5-325] RX: Levothyroxine Sodium 175 mcg PO DAILY@59908/14/24 10/19/24 History [Synthroid] RX: Metoclopramide [Reglan] 5 mg PO AC-TID PRN 08/14/24 10/19/24 History RX: Pantoprazole [Protonix] 40 mg PO DAILY@59908/14/24 10/19/24 History RX: Sertraline [Zoloft] 200 mg PO DAILY@79908/14/24 10/19/24 History RX: traZODone HCL [Desyrel] 50 mg PO HS 08/14/24 10/19/24 History RX: ALPRAZolam [Xanax] 0.25 mg PO BID PRN 09/04/24 10/19/24 History RX: Calcium Acetate [PhosLo] 2,001 mg PO TID-W/MEALS 09/04/24 10/19/24 History RX: Calcium Acetate [PhosLo] 667 mg PO DAILY PRN 09/04/24 10/19/24 History RX: cloNIDine HCL [Catapres] 0.3 mg PO TID 09/04/24 10/19/24 History RX: Colchicine [Colcrys] 0.3 mg PO DAILY #15 each 09/23/24 10/19/24 Rx RX: Isosorbide Mononitrate ER 120 mg PO DAILY #60 tab 09/23/24 10/19/24 Rx [Imdur] RX: Labetalol [Trandate] 500 mg PO BID #150 tab 09/23/24 10/19/24 Rx RX: NIFEdipine XL [Procardia XL] 60 mg PO BID #60 tab 09/23/24 10/19/24 Rx RX: hydrALAZINE HCL [Apresoline] 100 mg PO TID #90 tab 09/23/24 10/19/24 Rx RX: Insulin Aspart [NovoLOG 4 units SQ AC-TID 10/10/24 10/19/24 History Flexpen] RX: Insulin Aspart [NovoLOG See Protocol SQ ACHS 10/10/24 10/19/24 History Flexpen] RX: Insulin Glargine,Hum.rec.anlog 12 units SQ BID 10/10/24 10/19/24 History [Lantus Solostar Pen] Triphrocaps 1mg Cap 1 cap PO DAILY 10/10/24 10/19/24 History RX: Insulin Aspart (For Pump) 30 units SQ CONTINUOUS 10/19/24 10/19/24 History [NovoLOG (For Pump)] cefuroxime axetiL [Ceftin] 500 mg PO BID 10/19/24 10/19/24 History Allergies Allergy/AdvReac Type Severity Reaction Status Date / Time hydromorphone HCl Allergy Anaphylaxis Verified 10/21/24 00:12 [From Dilaudid] propoxyphene Allergy Rash/Hives Verified 10/21/24 00:12 [From Darvocet-N] tramadol Allergy Anaphylaxis Verified 10/21/24 00:12 ibuprofen [From Motrin] AdvReac unable to Verified 10/21/24 00:12 take due to kidney disease venom-honey bee AdvReac passes out Verified 10/21/24 00:12 [bee venom (honey bee)] Surgical - Exam Vital Signs Temp Pulse Resp BP Pulse Ox 98.3 F 116 H 20 205/124 99 10/21/24 00:04 10/21/24 00:04 10/21/24 00:04 10/21/24 00:04 10/21/24 00:04 Patient Seen Date: 10/21/24 Patient Seen Time: 11:00 - General well nourished, moderate distress - Eyes PERRL - Neck no masses - Respiratory normal expansion, normal respiratory effort - Cardiovascular Rhythm: regular - Neurologic normal coordination - Psychiatric oriented to time, oriented to person, oriented to place, speech is normal palpable thrill left upper extremity graft bruit noted at the loop graft and up the arm to the basilic and cephalic veins Fingers are tender to palpation, warm to the touch Results - Labs 10/21/24 03:27 10/21/24 03:27 Abnormal Lab Results - Last 24 Hours (Table) 10/21/24 10/21/24 10/21/24 Range/Units 03:27 03:27 08:45 WBC 12.7 H (3.8-10.6) k/uL RBC 3.32 L (3.80-5.40) m/uL Hgb 10.5 L (11.4-16.0) gm/dL Hct 32.0 L (34.0-46.0) % RDW 17.2 H (11.5-15.5) % Neutrophils # 8.6 H (1.3-7.7) k/uL Eosinophils # 1.0 H (0-0.7) k/uL APTT 34.0 H (22.0-30.0) sec Sodium 133 L (137-145) mmol/L Chloride 96 L (98-107) mmol/L BUN 57 H (7-17) mg/dL Creatinine 7.02 H* (0.52-1.04) mg/dL AST 51 H (14-36) U/L Diabetes panel 10/21/24 Range/Units 03:27 Sodium 133 L (137-145) mmol/L Potassium 4.2 (3.5-5.1) mmol/L Chloride 96 L (98-107) mmol/L Carbon Dioxide 28 (22-30) mmol/L BUN 57 H (7-17) mg/dL Creatinine 7.02 H* (0.52-1.04) mg/dL Glucose 98 (74-99) mg/dL Calcium 9.1 (8.4-10.2) mg/dL AST 51 H (14-36) U/L ALT 12 (4-34) U/L Alkaline Phosphatase 99 (38-126) U/L Total Protein 6.6 (6.3-8.2) g/dL Albumin 4.1 (3.5-5.0) g/dL Calcium panel 10/21/24 Range/Units 03:27 Calcium 9.1 (8.4-10.2) mg/dL Albumin 4.1 (3.5-5.0) g/dL Pituitary panel 10/21/24 Range/Units 03:27 Sodium 133 L (137-145) mmol/L Potassium 4.2 (3.5-5.1) mmol/L Chloride 96 L (98-107) mmol/L Carbon Dioxide 28 (22-30) mmol/L BUN 57 H (7-17) mg/dL Creatinine 7.02 H* (0.52-1.04) mg/dL Glucose 98 (74-99) mg/dL Calcium 9.1 (8.4-10.2) mg/dL Adrenal panel 10/21/24 Range/Units 03:27 Sodium 133 L (137-145) mmol/L Potassium 4.2 (3.5-5.1) mmol/L Chloride 96 L (98-107) mmol/L Carbon Dioxide 28 (22-30) mmol/L BUN 57 H (7-17) mg/dL Creatinine 7.02 H* (0.52-1.04) mg/dL Glucose 98 (74-99) mg/dL Calcium 9.1 (8.4-10.2) mg/dL Total Bilirubin 0.5 (0.2-1.3) mg/dL AST 51 H (14-36) U/L ALT 12 (4-34) U/L Alkaline Phosphatase 99 (38-126) U/L Total Protein 6.6 (6.3-8.2) g/dL Albumin 4.1 (3.5-5.0) g/dL Assessment and Plan Assessment: Left upper extremity pain secondary to recent AVG creation Possible thrombosed left upper extremity graft- resolved- palpable thrill ESRD on HD via right chest catheter Plan: Reviewed ultrasound from this morning which demonstrated no flow to the graft which does not correlate to exam Upon exam patient has palpable thrill, good augmentation and palpable radial pulse and therefore no surgical intervention required at this time. Will obtain another ultrasound to prove patency and determine if any residual thrombus or stenosis. Continue heparin drip, IV/PO pain control Discussed with her and her mother who is at bedside and they understand and agree with plan. Thank you for the consultation.
[2024-10-21 11:26] LABS: Glucose,Whole Blood 116 mg/dL (70-110)
--- NOTE | 2024-10-21 11:49 | P.HPIM ---
History of Present Illness H&P Date: 10/21/24 [employer] was not called by the ER provider regarding this admission. 34 year old F with PMH of ESRD on HD, HTN, DM, seizure disorder, Anxiety, Hypothyroidism, GERD presents to the ED for intractable left arm pain. She recently underwent left upper extremity loop forearm graft with Dr. Razo on 10/19. Since yesterday, she reports progressively worsening swelling, pain and cold to touch in her left arm which prompted her to come to the ED. Her pain is 10/10. She reports some nausea but no vomiting. No chest pain, shortness of breath, palpitations or lightheadedness. In the ED she underwent extensive evaluation. BP 205/124, HR 116, RR 20, T 98.3F, 99% on RA. CBC, Coag panel, CMP significant for WBC 12.7, RBC 3.32, Hg 10.5, Hct 32, Na 133, Cl 96, BUN 57, Cr 7.02, AST 51. Venous doppler showed thrombosed dialysis graft. EKG sinus tachycardia with short SC. Patient was started on a Heparin drip and admitted for further workup and management. General: non toxic, severe distress, appears at stated age Derm: warm, dry Head: atraumatic, normocephalic, symmetric Eyes: EOMI, no lid lag, anicteric sclera Mouth: no lip lesion, mucus membranes moist Cardiovascular: S1S2 tachy, no murmur Lungs: CTA bilateral, no rhonchi, no rales , no accessory muscle use Ext: no gross muscle atrophy, no edema, no contractures, 1+ radial pulse LLE with extreme tenderness to palpation and limited ROM. Neuro: no focal neuro deficits Psych: Alert, oriented, appropriate affect Based on my assessment of this patient, this patient meets a high complexity level of care. Intractable LUE pain: Left upper extremity loop forearm graft with Dr. Razo on 10/19. Discussed with Dr. Yarbrough, palpable thrill and radial pulse which does not correlate with US results, unlikely compartment syndrome. Possible v asospasms? started on Nitroglycerine topical. Repeat US has been ordered. Continue heparin drip in the meantime, monitor APTT. Pain control with Morphine 4 mg IV Q4H PRN + Percocet 10 Q4H PRN. Zofran 4 mg IV Q8H PRN for N/V. Vascular surgery on board. Hypertensive emergency: Labetalol 300 mg PO x 1 + Hydralazine 20 mg IV ordered this morning. Transfer to 3S. Telemetry monitoring. Restart Clonidine 0.3 mg PO TID, Hydralazine 100 mg PO TID, Labetalol 500 mg PO BID, Nifedipine 60 mg PO BID, Imdur 120 mg PO QD. Expected to improve with HD and pain control. ESRD on HD TTS: Nephrology consulted to resume HD. Anxiety and Depression: Xanax 0.25 mg PO BID PRN. Sertraline 200 mg PO QD. History of CVA: ASA 81 mg PO QD, Lipitor 40 mg PO QHS. Seizure disorder: Depakote 500 mg PO BID. Hypothyroidism: Synthroid 176 mcg PO QD. CODE STATUS: FULL CODE DVT Prophylaxis: Heparin drip GI Prophylaxis: Protonix PO Designated medical POA if patient is not able to make medical decisions for themselves: I have reviewed the following business analysis consultant notes: ER, Vascular note. I have reviewed the results of the following tests: As above. I have ordered the following tests: As above. I have discussed the care of this patient with the following independent historian: SUSU. Family at bedside. I have independently interpreted the following test below: I have discussed the management of this patient with the following physician: Dr. Yarbrough. Past Medical History Past Medical History: Diabetes Mellitus, GERD/Reflux, Hypertension, Renal Disease, Seizure Disorder, Thyroid Disorder Additional Past Medical History / Comment(s): Neuropathy, last seizure 2020, gastroparesis, headaches with dialysis, states "fast heart rate" since giving ., receives Hemodialysis Wednesday- and Saturdays at [facility] right chest hemodialysis catheter., severe HTN. patient awaiting Kidney and Pancrease Transplant. , states sometimes she has had stroke -like symptoms but no stroke., hx of c-diff 2013. History of Any Multi-Drug Resistant Organisms: C-DIFF Date of last positivie culture/infection: unknown MDRO Source:: stool Past Surgical History: Adenoidectomy, Section, Cholecystectomy, Orthopedic Surgery, Tonsillectomy Additional Past Surgical History / Comment(s): 2 KNEE SCOPES, EAR TUBES, ad ditional left knee surgery related to fracture, new port a cath jul 29, eye surgeries for diabetic retinopathy. Past Anesthesia/Blood Transfusion Reactions: Previous Problems w/ Anesthesia Additional Past Anesthesia/Blood Transfusion Reaction / Comment(s): confusion Smoking Status: Current every day smoker - Past Family History Father History Unknown: Yes Family Medical History: Unable to Obtain Mother History Unknown: Yes Family Medical History: No Reported History Grandfather History Unknown: Yes Family Medical History: Coronary Artery Disease (CAD) Additional Family Medical History / Comment(s): Diabetes mellitus type 2 Medications and Allergies Home Medications Medication Instructions Recorded Confirmed Type Docusate [Colace] 100 mg PO DAILY@0800 02/05/24 10/19/24 History Lidocaine 4% Patch 1 patch TOPICAL DAILY@0800 02/05/24 10/19/24 History Magnesium Hydroxide [Milk of 7,200 mg PO DAILY PRN 02/05/24 10/19/24 History Magnesia Concentrate] Ipratropium-Albuterol Nebulize 3 ml INHALATION RT-TID PRN each 02/14/24 10/19/24 Rx [Duoneb 0.5 mg-3 mg/3 ml Soln] polyethylene glycoL 3350 [Miralax] 17 gm PO AC-LUNCH #527 gm 02/14/24 10/19/24 Rx Acetaminophen [Tylenol] 650 mg PO Q4H PRN 02/18/24 10/19/24 History Biotene Dry Mouth/Throat 10 ml PO BID PRN 02/18/24 10/19/24 History Melatonin 1 mg PO HS tab 02/25/24 10/19/24 Rx Butalb/APAP/Caff 50-325-40Mg 1 tab PO Q4HR PRN 03/14/24 10/19/24 History [Fioricet 50-325-40] Darbepoetin Artur [Aranesp] 40 mcg SQ MO 03/14/24 10/19/24 History Loratadine [Claritin] 5 mg PO DAILY tab 03/30/24 10/19/24 Rx Aspirin 81 mg PO DAILY@0800 #30 tab 05/18/24 10/19/24 Rx Famotidine [Pepcid] 20 mg PO BID #60 tab 07/11/24 10/19/24 Rx Ondansetron [Zofran] 4 mg PO Q8HR PRN #20 tab 07/11/24 10/19/24 Rx Atorvastatin [Lipitor] 40 mg PO DIRECTED 08/14/24 10/19/24 History Divalproex ER [Depakote ER] 500 mg PO BID@0800,1700 08/14/24 10/19/24 History HYDROcodone/APAP 7.5-325MG [[place] 1 tab PO Q8H PRN 08/14/24 10/19/24 History 7.5-325] Levothyroxine Sodium [Synthroid] 175 mcg PO DAILY@0600 08/14/24 10/19/24 History Metoclopramide [Reglan] 5 mg PO AC-TID PRN 08/14/24 10/19/24 History Pantoprazole [Protonix] 40 mg PO DAILY@0600 08/14/24 10/19/24 History Sertraline [Zoloft] 200 mg PO DAILY@0800 08/14/24 10/19/24 History traZODone HCL [Desyrel] 50 mg PO HS 08/14/24 10/19/24 History ALPRAZolam [Xanax] 0.25 mg PO BID PRN 09/04/24 10/19/24 History Calcium Acetate [PhosLo] 2,001 mg PO TID-W/MEALS 09/04/24 10/19/24 History Calcium Acetate [PhosLo] 667 mg PO DAILY PRN 09/04/24 10/19/24 History cloNIDine HCL [Catapres] 0.3 mg PO TID 09/04/24 10/19/24 History Colchicine [Colcrys] 0.3 mg PO DAILY #15 each 09/23/24 10/19/24 Rx Isosorbide Mononitrate ER [Imdur] 120 mg PO DAILY #60 tab 09/23/24 10/19/24 Rx Labetalol [Trandate] 500 mg PO BID #150 tab 09/23/24 10/19/24 Rx NIFEdipine XL [Procardia XL] 60 mg PO BID #60 tab 09/23/24 10/19/24 Rx hydrALAZINE HCL [Apresoline] 100 mg PO TID #90 tab 09/23/24 10/19/24 Rx Insulin Aspart [NovoLOG Flexpen] 4 units SQ AC-TID 10/10/24 10/19/24 History Insulin Aspart [NovoLOG Flexpen] See Protocol SQ ACHS 10/10/24 10/19/24 History Insulin Glargine,Hum.rec.anlog 12 units SQ BID 10/10/24 10/19/24 History [Lantus Solostar Pen] Triphrocaps 1mg Cap 1 cap PO DAILY 10/10/24 10/19/24 History Insulin Aspart (For Pump) [NovoLOG 30 units SQ CONTINUOUS 10/19/24 10/19/24 History (For Pump)] cefuroxime axetiL [Ceftin] 500 mg PO BID 10/19/24 10/19/24 History Allergies Allergy/AdvReac Type Severity Reaction Status Date / Time hydromorphone HCl Allergy Anaphylaxis Verified 10/21/24 00:12 [From Dilaudid] propoxyphene Allergy Rash/Hives Verified 10/21/24 00:12 [From Darvocet-N] tramadol Allergy Anaphylaxis Verified 10/21/24 00:12 ibuprofen [From Motrin] AdvReac unable to Verified 10/21/24 00:12 take due to kidney disease venom-honey bee AdvReac passes out Verified 10/21/24 00:12 [bee venom (honey bee)] Physical Exam Vitals: Vital Signs Temp Pulse Pulse Resp BP BP Pulse Ox 10/21/24 10:02 102 H 20 191/99 99 10/21/24 09:10 199/104 10/21/24 07:53 94 169/96 10/21/24 06:48 98 F 99 16 199/115 96 10/21/24 06:08 98 18 153/96 96 10/21/24 05:00 93 18 166/98 96 10/21/24 01:51 111 H 18 187/111 97 10/21/24 01:30 114 H 20 200/120 98 10/21/24 01:01 98 20 208/119 98 10/21/24 00:04 98.3 F 116 H 20 205/124 99 Intake and Output 10/20/24 10/21/24 10/21/24 22:59 06:59 14:59 Other: Weight 61.689 kg 61.689 kg Results CBC & Chem 7: 10/21/24 03:27 10/21/24 03:27 Labs: Abnormal Lab Results - Last 24 Hours (Table) 10/21/24 10/21/24 10/21/24 Range/Units 03:27 03:27 08:45 WBC 12.7 H (3.8-10.6) k/uL RBC 3.32 L (3.80-5.40) m/uL Hgb 10.5 L (11.4-16.0) gm/dL Hct 32.0 L (34.0-46.0) % RDW 17.2 H (11.5-15.5) % Neutrophils # 8.6 H (1.3-7.7) k/uL Eosinophils # 1.0 H (0-0.7) k/uL APTT 34.0 H (22.0-30.0) sec Sodium 133 L (137-145) mmol/L Chloride 96 L (98-107) mmol/L BUN 57 H (7-17) mg/dL Creatinine 7.02 H* (0.52-1.04) mg/dL POC Glucose (mg/dL) (70-110) mg/dL AST 51 H (14-36) U/L 10/21/24 Range/Units 11:25 WBC (3.8-10.6) k/uL RBC (3.80-5.40) m/uL Hgb (11.4-16.0) gm/dL Hct (34.0-46.0) % RDW (11.5-15.5) % Neutrophils # (1.3-7.7) k/uL Eosinophils # (0-0.7) k/uL APTT (22.0-30.0) sec Sodium (137-145) mmol/L Chloride (98-107) mmol/L BUN (7-17) mg/dL Creatinine (0.52-1.04) mg/dL POC Glucose (mg/dL) 116 H (70-110) mg/dL AST (14-36) U/L Thrombosis Risk Factor Assmnt - Choose All That Apply Each Factor Represents 1 point: Heart failure (<1month), Medical pt on bed rest Thrombosis Risk Factor Assessment Total Risk Factor Score: 2 Thrombosis Risk Factor Assessment Level: Low Risk
[2024-10-21] MEDS: oxyCODONE-APAP 10-325MG 1 EACH TAB PO PRN (12:06)
--- NOTE | 2024-10-21 12:25 | P.NPCON ---
History of Present Illness - Reason for Consult Consult date: 10/21/24 - Chief Complaint Arm pain - History of Present Illness This patient is a 34-year-old woman with history of diabetes, hypertension, end- stage renal disease on hemodialysis. The patient had left forearm loop graft for dialysis which was placed October 19 at this facility by Dr. Razo. The patient notes that over the last hours she has been developing swelling and pain to the left forearm. She states her hand feels cold. The patient has not noted fevers. No chest pain or dyspnea. She does state that her last dialysis session was and was normal. Vital signs are stable. General: No acute distress. HEENT: Head exam is unremarkable. LUNGS: No audible rhonchi or wheezes. HEART: Rate and Rhythm are regular. ABDOMEN: Nontender. EXTREMITITES: No edema. Review of Systems Constitutional: Reports as per HPI Past Medical History Past Medical History: Diabetes Mellitus, GERD/Reflux, Hypertension, Renal Disease, Seizure Disorder, Thyroid Disorder Additional Past Medical History / Comment(s): Neuropathy, last seizure 2020, gastroparesis, headaches with dialysis, states "fast heart rate" since giving ., receives Hemodialysis Wednesday- and Saturdays at [facility]., right chest hemodialysis catheter., severe HTN. patient awaiting Kidney and Pancrease Transplant. , states sometimes she has had stroke -like symptoms but no stroke., hx of c-diff 2013. History of Any Multi-Drug Resistant Organisms: C-DIFF Date of last positivie culture/infection: unknown MDRO Source:: stool Past Surgical History: Adenoidectomy, Section, Cholecystectomy, Orthopedic Surgery, Tonsillectomy Additional Past Surgical History / Comment(s): 2 KNEE SCOPES, EAR TUBES, additional left knee surgery related to fracture, new port a cath jul 29, eye surgeries for diabetic retinopathy. Past Anesthesia/Blood Transfusion Reactions: Previous Problems w/ Anesthesia Additional Past Anesthesia/Blood Transfusion Reaction / Comment(s): confusion Smoking Status: Current every day smoker - Past Family History Father History Unknown: Yes Family Medical History: Unable to Obtain Mother History Unknown: Yes Family Medical History: No Reported History Grandfather History Unknown: Yes Family Medical History: Coronary Artery Disease (CAD) Additional Family Medical History / Comment(s): Diabetes mellitus type 2 Medications and Allergies Home Medications Medication Instructions Recorded Confirmed Type Docusate [Colace] 100 mg PO DAILY@0800 02/05/24 10/21/24 History Lidocaine 4% Patch 1 patch TOPICAL DAILY@0800 02/05/24 10/21/24 History Magnesium Hydroxide [Milk of 7,200 mg PO DAILY PRN 02/05/24 10/21/24 History Magnesia Concentrate] Ipratropium-Albuterol Nebulize 3 ml INHALATION RT-TID PRN each 02/14/24 10/21/24 Rx [Duoneb 0.5 mg-3 mg/3 ml Soln] polyethylene glycoL 3350 [Miralax] 17 gm PO AC-LUNCH #527 gm 02/14/24 10/21/24 Rx Acetaminophen [Tylenol] 650 mg PO Q4H PRN 02/18/24 10/21/24 History Biotene Dry Mouth/Throat 10 ml PO BID PRN 02/18/24 10/21/24 History Melatonin 1 mg PO HS tab 02/25/24 10/21/24 Rx Butalb/APAP/Caff 50-325-40Mg 1 tab PO Q4HR PRN 03/14/24 10/21/24 History [Fioricet 50-325-40] Darbepoetin Artur [Aranesp] 40 mcg SQ MO 03/14/24 10/21/24 History Loratadine [Claritin] 5 mg PO DAILY tab 03/30/24 10/21/24 Rx Aspirin 81 mg PO DAILY@0800 #30 tab 05/18/24 10/21/24 Rx Famotidine [Pepcid] 20 mg PO BID #60 tab 07/11/24 10/21/24 Rx Ondansetron [Zofran] 4 mg PO Q8HR PRN #20 tab 07/11/24 10/21/24 Rx Atorvastatin [Lipitor] 40 mg PO DIRECTED 08/14/24 10/21/24 History Divalproex ER [Depakote ER] 500 mg PO BID@0800,1700 08/14/24 10/21/24 History HYDROcodone/APAP 7.5-325MG [[place] 1 tab PO Q8H PRN 08/14/24 10/21/24 History 7.5-325] Levothyroxine Sodium [Synthroid] 175 mcg PO DAILY@0600 08/14/24 12/07/24 History Metoclopramide [Reglan] 5 mg PO AC-TID PRN 08/14/24 10/21/24 History Pantoprazole [Protonix] 40 mg PO DAILY@59908/14/24 10/21/24 History Sertraline [Zoloft] 200 mg PO DAILY@79908/14/24 10/21/24 History traZODone HCL [Desyrel] 50 mg PO HS 08/14/24 10/21/24 History ALPRAZolam [Xanax] 0.25 mg PO BID PRN 09/04/24 10/21/24 History Calcium Acetate [PhosLo] 2,001 mg PO TID-W/MEALS 09/04/24 10/21/24 History Calcium Acetate [PhosLo] 667 mg PO DAILY PRN 09/04/24 10/21/24 History cloNIDine HCL [Catapres] 0.3 mg PO TID 09/04/24 10/21/24 History Colchicine [Colcrys] 0.3 mg PO DAILY #15 each 09/23/24 10/21/24 Rx Isosorbide Mononitrate ER [Imdur] 120 mg PO DAILY #60 tab 09/23/24 10/21/24 Rx Labetalol [Trandate] 500 mg PO BID #150 tab 09/23/24 10/21/24 Rx NIFEdipine XL [Procardia XL] 60 mg PO BID #60 tab 09/23/24 10/21/24 Rx hydrALAZINE HCL [Apresoline] 100 mg PO TID #90 tab 09/23/24 10/21/24 Rx Insulin Aspart [NovoLOG Flexpen] 4 units SQ AC-TID 10/10/24 10/21/24 History Insulin Aspart [NovoLOG Flexpen] See Protocol SQ ACHS 10/10/24 10/21/24 History Insulin Glargine,Hum.rec.anlog 12 units SQ BID 10/10/24 10/21/24 History [Lantus Solostar Pen] Triphrocaps 1mg Cap 1 cap PO DAILY 10/10/24 10/21/24 History Insulin Aspart (For Pump) [NovoLOG 30 units SQ CONTINUOUS 10/19/24 10/21/24 History (For Pump)] cefuroxime axetiL [Ceftin] 500 mg PO BID 10/19/24 10/21/24 History Allergies Allergy/AdvReac Type Severity Reaction Status Date / Time hydromorphone HCl Allergy Anaphylaxis Verified 10/21/24 11:45 [From Dilaudid] propoxyphene Allergy Rash/Hives Verified 10/21/24 11:45 [From Darvocet-N] tramadol Allergy Anaphylaxis Verified 10/21/24 11:45 ibuprofen [From Motrin] AdvReac unable to Verified 10/21/24 11:45 take due to kidney disease venom-honey bee AdvReac passes out Verified 10/21/24 11:45 [bee venom (honey bee)] Physical Exam Vitals: Vital Signs Temp Pulse Pulse Resp BP BP Pulse Ox 10/21/24 10:02 102 H 20 191/99 99 10/21/24 09:10 199/104 10/21/24 07:53 94 169/96 10/21/24 06:48 98 F 99 16 199/115 96 10/21/24 06:08 98 18 153/96 96 10/21/24 05:00 93 18 166/98 96 10/21/24 01:51 111 H 18 187/111 97 10/21/24 01:30 114 H 20 200/120 98 10/21/24 01:01 98 20 208/119 98 10/21/24 00:04 98.3 F 116 H 20 205/124 99 Intake and Output 10/20/24 10/21/24 10/21/24 22:59 06:59 14:59 Other: Weight 61.689 kg 61.689 kg Results - Lab Results Most recent lab results Calcium 9.1 mg/dL (8.4-10.2) 10/21/24 03:27 10/21/24 03:27 10/21/24 03:27 Assessment and Plan Assessment: 1. End-stage renal disease maintained on hemodialysis on Wednesday. Has permacath. 2. LUE AVG placement with post-operative pain and swelling. 3. Hypertension with chronic kidney disease. Stable. 4. Diabetes mellitus. 5. Chronic kidney disease mineral bone disease maintained on PhosLo. 6. Anemia of chronic kidney disease. Plan: HD today to maintain schedule Vascular evaluation of new AVG
[2024-10-21] MEDS: CALCIUM ACETATE 667 MG TAB PO SCH (13:03)
--- NOTE | 2024-10-21 13:13 | US ---
EXAMINATION TYPE: US venous doppler duplex UE LT DATE OF EXAM: 10/21/2024 COMPARISON: US 10/21/2024 CLINICAL INDICATION: Female, 34 years old with history of left upper extremity loop graft thrombosis; Left forearm dialysis graft thrombosed, reevaluate TECHNIQUE: Grayscale, color Doppler and spectral Doppler imaging of the upper extremity. SIDE PERFORMED: Left FINDINGS: Left Arm: Left forearm dialysis graft scanned. Unable to obtain color doppler or waveforms. Edema se en. Grayscale, color doppler, spectral doppler imaging performed. IMPRESSION: Thrombosed left forearm dialysis graft. [facility], , 10/21/2024 1:11 PM
[2024-10-21 16:18] LABS: Glucose,Whole Blood 162 mg/dL (70-110)
--- NOTE | 2024-10-21 18:22 | CT ---
EXAMINATION TYPE: CT angio upper extremity LT DATE OF EXAM: 10/21/2024 COMPARISON: Prior previous ultrasound study 10/21/2024. Chest x-ray February 07, 2024 HISTORY: Dialysis loop graft, concern for thrombosis TECHNIQUE: Multiple contiguous axial CT angiography images of the left upper extremity were performed following the administration of IV contrast. Coronal and sagittal reformats were acquired in additio n to MIP and 3-D post processing performed on a separate workstation FINDINGS: Partially visualized left lung concerning for acute pathology. Central venous catheter visualized ter minating in the right atrium. Three-vessel thoracic regards with grossly patent main thoracic aortic arch branches. Left subclavian artery and left axillary artery are patent throughout. The left brachi al artery is patent. Visualized left radial and ulnar arteries appear patent. Left subclavian and axillary veins appear patent without stenosis or significant occlusion. Left brac hial vein is patent. Visualized portion of the dialysis loop graft appears patent. There is soft tiss ue gas and edema throughout the left upper extremity and left forearm. There is focal region of irreg ularity involving the cephalic vein (image 146) which could reflect partially occlusive thrombus. Visualized portions of the abdomen demonstrate large amount of colonic stool burden. IMPRESSION: 1. Visualized portions of the dialysis loop graft appear patent. 2. Focal irregularity involving the cephalic vein which could reflect partially occlusive thrombus. 3. Left upper extremity arterial structures appear patent. [facility], , 10/21/2024 6:19 PM
[2024-10-21 20:23] LABS: Glucose,Whole Blood 209 mg/dL (70-110)
[2024-10-21] MEDS: ATORVASTATIN 40 MG TAB PO SCH (21:59)
[2024-10-21] MEDS: INSULIN ASPART (NovoLOG) 100 UNIT/ML VIAL SQ SCH (22:00)
[2024-10-21] MEDS: traZODone HCL 50 MG TAB PO SCH (23:06)
[2024-10-21] MEDS: LABETALOL 200 MG TAB PO SCH (23:06)
[2024-10-22 00:50] LABS: Glucose,Whole Blood 333 mg/dL (70-110)
[2024-10-22 01:36] LABS: Anisocytosis Slight; Basophils # (A) 0.1 k/uL (0-0.2); Basophils % (A) 0 %; Eosinophils % (A) 8 %; HGB 9.9 gm/dL (11.4-16.0); Hypochromasia Moderate; Lymphocytes # (A) 1.4 k/uL (1.0-4.8); Lymphocytes % (A) 11 %; MCH 32.1 pg (25.0-35.0); MCV 100.1 fL (80.0-100.0); Macrocytosis Slight; Mean Platelet Volume 7.7; Monocytes # (A) 0.8 k/uL (0-1.0); Monocytes % (A) 6 %; Neutrophils # (A) 9.8 k/uL (1.3-7.7); Neutrophils % (A) 74 %; Platelet Count 396 k/uL (150-450); RDW 17.3 % (11.5-15.5); WBC 13.3 k/uL (3.8-10.6)
[2024-10-22] MEDS: PANTOPRAZOLE 40 MG/10 ML VIAL IVP STA (01:38)
[2024-10-22 04:07] LABS: Glucose,Whole Blood 579 mg/dL (70-110)
[2024-10-22] MEDS: INSULIN ASPART (NovoLOG) 100 UNIT/ML VIAL SQ SCH (04:35)
[2024-10-22] MEDS: PANTOPRAZOLE 40 MG TABLET PO SCH (06:12)
[2024-10-22] MEDS: LEVOTHYROXINE 88 MCG TAB PO SCH (06:12)
[2024-10-22 06:20] LABS: Glucose,Whole Blood 577 mg/dL (70-110)
[2024-10-22] MEDS: INSULIN DETEMIR (LEVEMIR) 100 UNIT/ML SYR SQ SCH (06:54)
[2024-10-22] MEDS: INSULIN ASPART (NovoLOG) 100 UNIT/ML VIAL SQ STA (07:07)
[2024-10-22 08:08] LABS: Glucose,Whole Blood 508 mg/dL (70-110)
[2024-10-22 08:10] LABS: Anisocytosis Slight; HCT 29.6 % (34.0-46.0); HGB 9.1 gm/dL (11.4-16.0); Hypochromasia Moderate; MCH 31.3 pg (25.0-35.0); MCHC 30.8 g/dL (31.0-37.0); MCV 101.7 fL (80.0-100.0); Macrocytosis Moderate; Mean Platelet Volume 8.7; Platelet Count 367 k/uL (150-450); RBC 2.91 m/uL (3.80-5.40); RDW 17.2 % (11.5-15.5); WBC 16.2 k/uL (3.8-10.6)
[2024-10-22] MEDS: FAMOTIDINE 20 MG TAB PO SCH (08:53)
[2024-10-22 09:06] LABS: African American GFR (CKD) 12 (>60 ml/min/1.73 sqM); Anion Gap 13 mmol/L; Blood Urea Nitrogen 39 mg/dL (7-17); Calcium 8.8 mg/dL (8.4-10.2); Carbon Dioxide 21 mmol/L (22-30); Chloride 93 mmol/L (98-107); Glucose 494 mg/dL (74-99); Non-African American GFR(CKD) 10 (>60 ml/min/1.73 sqM); Sodium 127 mmol/L (137-145)
--- NOTE | 2024-10-22 10:48 | P.PN ---
Progress Note - Text Progress Note Date: 10/22/24 Reviewed CTA of the upper extremity. Patent graft with flow to the hand noted. No surgical intervention at this time. Continue to elevate left arm. If no improvement of swelling then will need arm wrapped.
--- NOTE | 2024-10-22 11:32 | P.PN ---
Subjective Progress Note Date: 10/22/24 Patient seen in follow-up for ESRD. Still with left arm pain. Toelrated HD yesterday without issues. Vital signs are stable. General: No acute distress. HEENT: Head exam is unremarkable. LUNGS: No audible rhonchi or wheezes. HEART: Rate and Rhythm are regular. ABDOMEN: Nontender. EXTREMITITES: Left forearm edema. Objective - Vital Signs Vital signs: Vital Signs Temp 98.2 F 10/22/24 08:41 Pulse 94 10/22/24 08:41 Resp 18 10/22/24 08:41 BP 142/74 10/22/24 08:41 Pulse Ox 92 L 10/22/24 08:41 FiO2 Intake & Output 10/21/24 10/22/24 10/22/24 18:59 06:59 18:59 Intake Total 3806.810 74.212 Output Total 3400 Balance 406.810 74.212 Weight 61.689 kg 61.4 kg Intake: Intake, IV Titration 166.810 74.212 Amount Heparin Sod,Pork in 0.45% 166.810 74.212 NaCl 25,000 unit In 0.45 % NaCl 1 250ml.bag @ 18 UNITS/KG/HR 11.104 mls/hr IV .[id number] VY Rx#: [id number] Oral 240 Hemodialysis 3400 Output: Hemodialysis 400 Hemodialysis Net Amount 3000 Other: # Voids 0 0 # Bowel Movements 1 - Labs CBC & Chem 7: 10/22/24 07:56 10/22/24 07:56 Labs: Abnormal Lab Results - Last 24 Hours (Table) 10/21/24 10/21/24 10/21/24 Range/Units 08:45 11:25 16:16 WBC (3.8-10.6) k/uL RBC (3.80-5.40) m/uL Hgb (11.4-16.0) gm/dL Hct (34.0-46.0) % MCV (80.0-100.0) fL MCHC (31.0-37.0) g/dL RDW (11.5-15.5) % Neutrophils # (1.3-7.7) k/uL Eosinophils # (0-0.7) k/uL APTT 34.0 H (22.0-30.0) sec Sodium (137-145) mmol/L Chloride (98-107) mmol/L Carbon Dioxide (22-30) mmol/L BUN (7-17) mg/dL Creatinine (0.52-1.04) mg/dL Glucose (74-99) mg/dL POC Glucose (mg/dL) 116 H 162 H (70-110) mg/dL 10/21/24 10/21/24 10/22/24 Range/Units 16:21 20:22 00:49 WBC (3.8-10.6) k/uL RBC (3.80-5.40) m/uL Hgb (11.4-16.0) gm/dL Hct (34.0-46.0) % MCV (80.0-100.0) fL MCHC (31.0-37.0) g/dL RDW (11.5-15.5) % Neutrophils # (1.3-7.7) k/uL Eosinophils # (0-0.7) k/uL APTT >200.0 H* (22.0-30.0) sec Sodium (137-145) mmol/L Chloride (98-107) mmol/L Carbon Dioxide (22-30) mmol/L BUN (7-17) mg/dL Creatinine (0.52-1.04) mg/dL Glucose (74-99) mg/dL POC Glucose (mg/dL) 209 H 333 H (70-110) mg/dL 10/22/24 10/22/24 10/22/24 Range/Units 01:02 01:05 04:05 WBC 13.3 H (3.8-10.6) k/uL RBC 3.10 L (3.80-5.40) m/uL Hgb 9.9 L (11.4-16.0) gm/dL Hct 31.0 L (34.0-46.0) % MCV 100.1 H (80.0-100.0) fL MCHC (31.0-37.0) g/dL RDW 17.3 H (11.5-15.5) % Neutrophils # 9.8 H (1.3-7.7) k/uL Eosinophils # 1.0 H (0-0.7) k/uL APTT 38.7 H (22.0-30.0) sec Sodium (137-145) mmol/L Chloride (98-107) mmol/L Carbon Dioxide (22-30) mmol/L BUN (7-17) mg/dL Creatinine (0.52-1.04) mg/dL Glucose (74-99) mg/dL POC Glucose (mg/dL) 579 H* (70-110) mg/dL 10/22/24 10/22/24 10/22/24 Range/Units 06:18 07:56 07:56 WBC 16.2 H (3.8-10.6) k/uL RBC 2.91 L (3.80-5.40) m/uL Hgb 9.1 L (11.4-16.0) gm/dL Hct 29.6 L (34.0-46.0) % MCV 101.7 H (80.0-100.0) fL MCHC 30.8 L (31.0-37.0) g/dL RDW 17.2 H (11.5-15.5) % Neutrophils # (1.3-7.7) k/uL Eosinophils # (0-0.7) k/uL APTT 49.3 H (22.0-30.0) sec Sodium (137-145) mmol/L Chloride (98-107) mmol/L Carbon Dioxide (22-30) mmol/L BUN (7-17) mg/dL Creatinine (0.52-1.04) mg/dL Glucose (74-99) mg/dL POC Glucose (mg/dL) 577 H* (70-110) mg/dL 10/22/24 10/22/24 Range/Units 07:56 08:07 WBC (3.8-10.6) k/uL RBC (3.80-5.40) m/uL Hgb (11.4-16.0) gm/dL Hct (34.0-46.0) % MCV (80.0-100.0) fL MCHC (31.0-37.0) g/dL RDW (11.5-15.5) % Neutrophils # (1.3-7.7) k/uL Eosinophils # (0-0.7) k/uL APTT (22.0-30.0) sec Sodium 127 L (137-145) mmol/L Chloride 93 L (98-107) mmol/L Carbon Dioxide 21 L (22-30) mmol/L BUN 39 H (7-17) mg/dL Creatinine 5.17 H (0.52-1.04) mg/dL Glucose 494 H (74-99) mg/dL POC Glucose (mg/dL) 508 H* (70-110) mg/dL Assessment and Plan Assessment: 1. End-stage renal disease maintained on hemodialysis on Wednesday. Has permacath. 2. LUE AVG placement with post-operative pain and swelling. 3. Hypertension with chronic kidney disease. Stable. 4. Diabetes mellitus. 5. Chronic kidney disease mineral bone disease maintained on PhosLo. 6. Anemia of chronic kidney disease. Plan: HD per MTTS schedule CTA showed patent AVG with possible cephalic vein thrombosis
[2024-10-22 11:33] LABS: Glucose,Whole Blood 453 mg/dL (70-110)
--- NOTE | 2024-10-22 11:48 | P.PN ---
Subjective Progress Note Date: 10/22/24 34 year old F with PMH of ESRD on HD, HTN, DM, seizure disorder, Anxiety, Hypothyroidism, GERD presents to the ED for intractable left arm pain. She recently underwent left upper extremity loop forearm graft with Dr. Razo on 10/19. Since yesterday, she reports progressively worsening swelling, pain and co ld to touch in her left arm which prompted her to come to the ED. Her pain is 10/10. She reports some nausea but no vomiting. No chest pain, shortness of breath, palpitations or lightheadedness. In the ED she underwent extensive evaluation. BP 205/124, HR 116, RR 20, T 98.3F, 99% on RA. CBC, Coag panel, CMP significant for WBC 12.7, RBC 3.32, Hg 10.5, Hct 32, Na 133, Cl 96, BUN 57, Cr 7.02, AST 51. Venous doppler showed thrombosed dialysis graft. EKG sinus tachycardia with short NH. Patient was started on a Heparin drip and admitted for further workup and management. She received Labetalol + Hydralazine IV in the ED for better BP control. She was restarted on her antihypertensive medications. BP improved. Discussed with Dr. Yarbrough, palpable thrill and radial pulse which does not correlate with US results, unlikely compartment syndrome, possible vasospasms, started on Nitroglycerine topical. Repeat Venous doppler showed thrombosed AV graft. CTA was ordered which showed patent dialysis loop graft, focal irregularity involving the cephalic vein which could represent partially occlusive thrombus. 10/22 Patient was seen and examined. She reported some lightheadedness during HD, her BP was 117/72. Heparin drip was also held for a short period of time due to APTT of > 200, she did have some epistaxis. She also reported an episode of N/V of bloody/black emesis for which she was given Protonix 80 mg IV. Today, she continues to report swelling and 10/10 pain in her LUE. CBC and BMP significant for WBC 16.2, RBC 2.91, Hg 9.1, Hct 29.6, MCV 101.7, Na 127, Cl 93, bicarb 21, BUN 39, Cr 5.17, glu 494. APTT 49.3. Most recently POC glucose 579 requiring 6 units of Novolog. She was also started on Novolog 4 units TID and Levemir 12 units BID. General: non toxic, mild distress, appears at stated age Derm: warm, dry Head: atraumatic, normocephalic, symmetric Eyes: EOMI, no lid lag, anicteric sclera Mouth: no lip lesion, mucus membranes moist Cardiovascular: S1S2 tachy, no murmur Lungs: CTA bilateral, no rhonchi, no rales , no accessory muscle use Ext: no gross muscle atrophy, no edema, no contractures, 2+ radial pulse LLE with extreme tenderness to palpation and limited ROM. Neuro: no focal neuro deficits Psych: Alert, oriented, appropriate affect Based on my assessment of this patient, this patient meets a high complexity level of care. Intractable LUE pain: Left upper extremity loop forearm graft with Dr. Razo on 10/19. CTA was ordered which showed patent dialysis loop graft, focal irregularity involving the cephalic vein which could represent partially occlusive thrombus. Discussed with Dr. Yarbrough, no surgical intervention, OK with discontinuing Heparin drip. Pain control with Morphine 4 mg IV Q4H PRN + Percocet 10 Q4H PRN. Zofran 4 mg IV Q8H PRN for N/V. Vascular surgery on board. Epistaxis and Hematemesis: Patient reported one episode last night. Status post Protonix 80 mg IV. Start Protonix 40 mg IV QD. Discontinue heparin drip per Vascular recommendations. Repeat CBC tomorrow and monitor for further signs of bleeding, may need endoscopic evaluation if continued. DM with hyperglycemia: Patient stopped insulin pump. ISS. Novolog 4 units TID. Levemir 12 units BID. Accuchecks ACHS. Hypoglycemic precautions. Hypertension: Clonidine 0.3 mg PO TID, Hydralazine 100 mg PO TID, Labetalol 500 mg PO BID, Nifedipine 60 mg PO BID, Imdur 120 mg PO QD. Expected to improve with HD and pain control. ESRD on HD TTS: Nephrology consulted to resume HD. Last HD session 10/21. Anxiety and Depression: Ativan 1 mg IV Q4H PRN. Sertraline 200 mg PO QD. History of CVA: ASA 81 mg PO QD, Lipitor 40 mg PO QHS. Seizure disorder: Depakote 500 mg PO BID. Hypothyroidism: Synthroid 176 mcg PO QD. Resolved: Hypertensive emergency CODE STATUS: FULL CODE DVT Prophylaxis: SCD GI Prophylaxis: Protonix IV Designated medical POA if patient is not able to make medical decisions for themselves: I have reviewed the following implementation consultant notes: Nephro, Vascular note. I have reviewed the results of the following tests: CBC, APTT, POC glucose, BMP. I have ordered the following tests: CBC, BMP in the AM. I have discussed the care of this patient with the following independent historian: I have independently interpreted the following test below: I have discussed the management of this patient with the following physician: Dr. Yarbrough Objective - Vital Signs Vital signs: Vital Signs Temp 98.1 F 10/21/24 23:58 Pulse 111 H 10/22/24 04:06 Resp 18 10/22/24 04:06 BP 146/81 10/22/24 04:06 Pulse Ox 98 10/22/24 04:06 FiO2 Intake & Output 10/21/24 10/22/24 10/22/24 18:59 06:59 18:59 Intake Total 3806.810 74.212 Output Total 3400 Balance 406.810 74.212 Weight 61.689 kg 61.4 kg Intake: Intake, IV Titration 166.810 74.212 Amount Heparin Sod,Pork in 0.45% 166.810 74.212 NaCl 25,000 unit In 0.45 % NaCl 1 250ml.bag @ 18 UNITS/KG/HR 11.104 mls/hr IV .[id number] [facility] Rx#: [id number] Oral 240 Hemodialysis 3400 Output: Hemodialysis 400 Hemodialysis Net Amount 3000 Other: # Voids 0 # Bowel Movements 1 - Labs CBC & Chem 7: 10/22/24 07:56 10/22/24 07:56 Labs: Abnormal Lab Results - Last 24 Hours (Table) 10/21/24 10/21/24 10/21/24 Range/Units 08:45 11:25 16:16 WBC (3.8-10.6) k/uL RBC (3.80-5.40) m/uL Hgb (11.4-16.0) gm/dL Hct (34.0-46.0) % MCV (80.0-100.0) fL RDW (11.5-15.5) % Neutrophils # (1.3-7.7) k/uL Eosinophils # (0-0.7) k/uL APTT 34.0 H (22.0-30.0) sec POC Glucose (mg/dL) 116 H 162 H (70-110) mg/dL 10/21/24 10/21/24 10/22/24 Range/Units 16:21 20:22 00:49 WBC (3.8-10.6) k/uL RBC (3.80-5.40) m/uL Hgb (11.4-16.0) gm/dL Hct (34.0-46.0) % MCV (80.0-100.0) fL RDW (11.5-15.5) % Neutrophils # (1.3-7.7) k/uL Eosinophils # (0-0.7) k/uL APTT >200.0 H* (22.0-30.0) sec POC Glucose (mg/dL) 209 H 333 H (70-110) mg/dL 10/22/24 10/22/24 10/22/24 Range/Units 01:02 01:05 04:05 WBC 13.3 H (3.8-10.6) k/uL RBC 3.10 L (3.80-5.40) m/uL Hgb 9.9 L (11.4-16.0) gm/dL Hct 31.0 L (34.0-46.0) % MCV 100.1 H (80.0-100.0) fL RDW 17.3 H (11.5-15.5) % Neutrophils # 9.8 H (1.3-7.7) k/uL Eosinophils # 1.0 H (0-0.7) k/uL APTT 38.7 H (22.0-30.0) sec POC Glucose (mg/dL) 579 H* (70-110) mg/dL 10/22/24 Range/Units 06:18 WBC (3.8-10.6) k/uL RBC (3.80-5.40) m/uL Hgb (11.4-16.0) gm/dL Hct (34.0-46.0) % MCV (80.0-100.0) fL RDW (11.5-15.5) % Neutrophils # (1.3-7.7) k/uL Eosinophils # (0-0.7) k/uL APTT (22.0-30.0) sec POC Glucose (mg/dL) 577 H* (70-110) mg/dL
[2024-10-22 12:41] LABS: Glucose,Whole Blood 404 mg/dL (70-110)
[2024-10-22] MEDS: LORazepam 2 MG/ML INJ IV PRN (14:28)
[2024-10-22 16:15] LABS: Anisocytosis Slight; HCT 25.8 % (34.0-46.0); HGB 8.4 gm/dL (11.4-16.0); Hypochromasia Slight; MCH 32.4 pg (25.0-35.0); MCHC 32.5 g/dL (31.0-37.0); MCV 99.7 fL (80.0-100.0); Macrocytosis Slight; Mean Platelet Volume 7.9; Platelet Count 338 k/uL (150-450); RBC 2.59 m/uL (3.80-5.40); RDW 17.1 % (11.5-15.5); WBC 13.4 k/uL (3.8-10.6)
[2024-10-22 16:51] LABS: Glucose,Whole Blood 121 mg/dL (70-110)
[2024-10-22 20:33] LABS: Glucose,Whole Blood 109 mg/dL (70-110)
[2024-10-22] MEDS ORDERED: INSULIN DETEMIR (LEVEMIR) 100 UNIT/ML SYR SQ SCH (21:00)
[2024-10-23 06:22] LABS: Glucose,Whole Blood 90 mg/dL (70-110)
[2024-10-23 07:58] LABS: Anisocytosis Slight; HCT 27.5 % (34.0-46.0); HGB 8.7 gm/dL (11.4-16.0); Hypochromasia Slight; MCH 31.7 pg (25.0-35.0); MCHC 31.6 g/dL (31.0-37.0); MCV 100.2 fL (80.0-100.0); Macrocytosis Slight; Platelet Count 346 k/uL (150-450); RBC 2.75 m/uL (3.80-5.40); RDW 17.1 % (11.5-15.5); WBC 13.7 k/uL (3.8-10.6)
[2024-10-23 08:17] LABS: African American GFR (CKD) 8 (>60 ml/min/1.73 sqM); Anion Gap 11 mmol/L; Blood Urea Nitrogen 55 mg/dL (7-17); Calcium 9.3 mg/dL (8.4-10.2); Carbon Dioxide 29 mmol/L (22-30); Chloride 92 mmol/L (98-107); Glucose 85 mg/dL (74-99); Non-African American GFR(CKD) 7 (>60 ml/min/1.73 sqM); Potassium 5.3 mmol/L (3.5-5.1); Sodium 132 mmol/L (137-145)
[2024-10-23] MEDS: PANTOPRAZOLE 40 MG/10 ML VIAL IVP SCH (08:47)
--- NOTE | 2024-10-23 10:53 | P.PN ---
Subjective Progress Note Date: 10/23/24 Principal diagnosis: Left arm pain Patient is seen and examined at the bedside. She is currently undergoing hemodialysis per her right chest catheter. She is in her room whimpering and crying stating that she has pain in her left upper extremity. CTA shows patent flow of loop graft. Objective - Vital Signs Vital signs: Vital Signs Temp 97.7 F 10/23/24 08:42 Pulse 91 10/23/24 08:42 Resp 18 10/23/24 08:42 BP 130/78 10/23/24 08:42 Pulse Ox 99 10/23/24 08:42 FiO2 Intake & Output 10/22/24 10/23/24 10/23/24 18:59 06:59 18:59 Intake Total 613.997 240 Balance 613.997 240 Weight 63.6 kg Intake: IV 10 Invasive Line 1 10 Intake, IV Titration 123.997 Amount Heparin Sod,Pork in 0.45% 123.997 NaCl 25,000 unit In 0.45 % NaCl 1 250ml.bag @ 18 UNITS/KG/HR 11.104 mls/hr IV .[id number] [facility] Rx#: [id number] Oral 480 240 Other: # Voids 2 - Exam General appearance: The patient is alert, oriented, appears in no acute distress. HET: Head is normocephalic and atraumatic. Pupils are equal and reactive. Neck: Supple. Chest: Symmetrical, right tunnel catheter clean dry and intact. Abdomen: Soft, nontender, nondistended. Extremities: Normal skin color and turgor. Left fingers and forearm with swelling. Palpable radial pulse. Audible bruit. Left upper extremity warm to the touch, fingers warm to the touch. Neurological: No focal deficits. Strength and sensation are grossly intact. - Labs CBC & Chem 7: 10/23/24 07:15 10/23/24 07:15 Labs: Abnormal Lab Results - Last 24 Hours (Table) 10/22/24 10/22/24 10/22/24 Range/Units 07:56 11:31 12:39 WBC (3.8-10.6) k/uL RBC (3.80-5.40) m/uL Hgb (11.4-16.0) gm/dL Hct (34.0-46.0) % MCV (80.0-100.0) fL RDW (11.5-15.5) % Sodium 127 L (137-145) mmol/L Potassium (3.5-5.1) mmol/L Chloride 93 L (98-107) mmol/L Carbon Dioxide 21 L (22-30) mmol/L BUN 39 H (7-17) mg/dL Creatinine 5.17 H (0.52-1.04) mg/dL Glucose 494 H (74-99) mg/dL POC Glucose (mg/dL) 453 H 404 H (70-110) mg/dL 10/22/24 10/22/24 10/23/24 Range/Units 15:50 16:49 07:15 WBC 13.4 H 13.7 H (3.8-10.6) k/uL RBC 2.59 L 2.75 L (3.80-5.40) m/uL Hgb 8.4 L 8.7 L (11.4-16.0) gm/dL Hct 25.8 L 27.5 L (34.0-46.0) % MCV 100.2 H (80.0-100.0) fL RDW 17.1 H 17.1 H (11.5-15.5) % Sodium (137-145) mmol/L Potassium (3.5-5.1) mmol/L Chloride (98-107) mmol/L Carbon Dioxide (22-30) mmol/L BUN (7-17) mg/dL Creatinine (0.52-1.04) mg/dL Glucose (74-99) mg/dL POC Glucose (mg/dL) 121 H (70-110) mg/dL 10/23/24 Range/Units 07:15 WBC (3.8-10.6) k/uL RBC (3.80-5.40) m/uL Hgb (11.4-16.0) gm/dL Hct (34.0-46.0) % MCV (80.0-100.0) fL RDW (11.5-15.5) % Sodium 132 L (137-145) mmol/L Potassium 5.3 H (3.5-5.1) mmol/L Chloride 92 L (98-107) mmol/L Carbon Dioxide (22-30) mmol/L BUN 55 H (7-17) mg/dL Creatinine 7.28 H* (0.52-1.04) mg/dL Glucose (74-99) mg/dL POC Glucose (mg/dL) (70-110) mg/dL Assessment and Plan Assessment: 1. Left upper extremity pain secondary to recent AVG creation 2. Patent graft with flow to hand per CTA. Palpable thrill and audible bruit. 3. End-stage renal disease on hemodialysis via right chest catheter Plan: 1. Jv wrap applied to left upper extremity 2. Keep elevated 3. May apply ice pack and heat pack as needed 4. No surgical intervention at this time. Thank you for this consultation, we will continue to follow. The impression and plan of care has been dictated as directed. I performed a history and examination of this patient, discussed the same with the dictator. I agree with the dictator's note ,documented as a scribe. Any additional findings or plans will be noted.
[2024-10-23 11:22] LABS: Glucose,Whole Blood 115 mg/dL (70-110)
--- NOTE | 2024-10-23 11:41 | P.PN ---
Subjective Progress Note Date: 10/23/24 34 year old F with PMH of ESRD on HD, HTN, DM, seizure disorder, Anxiety, Hypothyroidism, GERD presents to the ED for intractable left arm pain. She recently underwent left upper extremity loop forearm graft with Dr. Razo on 10/19. Since yesterday, she reports progressively worsening swelling, pain and co ld to touch in her left arm which prompted her to come to the ED. Her pain is 10/10. She reports some nausea but no vomiting. No chest pain, shortness of breath, palpitations or lightheadedness. In the ED she underwent extensive evaluation. BP 205/124, HR 116, RR 20, T 98.3F, 99% on RA. CBC, Coag panel, CMP significant for WBC 12.7, RBC 3.32, Hg 10.5, Hct 32, Na 133, Cl 96, BUN 57, Cr 7.02, AST 51. Venous doppler showed thrombosed dialysis graft. EKG sinus tachycardia with short MO. Patient was started on a Heparin drip and admitted for further workup and management. She received Labetalol + Hydralazine IV in the ED for better BP control. She was restarted on her antihypertensive medications. BP improved. Discussed with Dr. Yarbrough, palpable thrill and radial pulse which does not correlate with US results, unlikely compartment syndrome, possible vasospasms, started on Nitroglycerine topical. Repeat Venous doppler showed thrombosed AV graft. CTA was ordered which showed patent dialysis loop graft, focal irregularity involving the cephalic vein which could represent partially occlusive thrombus. 10/22 Patient was seen and examined. She reported some lightheadedness during HD, her BP was 117/72. Heparin drip was also held for a short period of time due to APTT of > 200, she did have some epistaxis. She also reported an episode of N/V of bloody/black emesis for which she was given Protonix 80 mg IV. Today, she continues to report swelling and 10/10 pain in her LUE. CBC and BMP significant for WBC 16.2, RBC 2.91, Hg 9.1, Hct 29.6, MCV 101.7, Na 127, Cl 93, bicarb 21, BUN 39, Cr 5.17, glu 494. APTT 49.3. Most recently POC glucose 579 requiring 6 units of Novolog. She was also started on Novolog 4 units TID and Levemir 12 units BID. 10/23. Patient seen and examined at bedside undergoing HD. She reports 10/10 pain in the left upper extremity and numbness of the left hand. An pino bandage had just been applied to left upper extremity for swelling by vascular. States that nosebleeds and black/bloody emesis have improved since discontinuing the heparin. HD goal today is 3.5 L. WBCs 13.7, RBCs 2.75, hemoglobin 8.7, hematocrit 27.5, MCV 100.2, sodium 132, potassium 5.3, chloride 92, CO2 29, BUN 55, creatinine 7.28, glucose 85, APTT 26.2. General: non toxic, mild distress, appears stated age Derm: warm, dry Head: atraumatic, normocephalic, symmetric Eyes: EOMI, no lid lag, anicteric sclera Mouth: no lip lesion, mucus membranes moist Cardiovascular: S1S2 tachy, no murmur Lungs: CTA bilateral, no rhonchi, no rales, no accessory muscle use Ext: no gross muscle atrophy, no edema, no contractures, 2+ radial pulse LUE with extreme tenderness to palpation and limited ROM Neuro: no focal neuro deficits Psych: Alert, oriented, appropriate affect Based on my assessment of this patient, this patient meets a high complexity level of care. Intractable LUE pain: Left upper extremity loop forearm graft with Dr. Razo on 10/19. CTA was ordered which showed patent dialysis loop graft, focal irregularity involving the cephalic vein which could represent partially occlusive thrombus. Discussed with Dr. Yarbrough, no surgical intervention. Pain control with Morphine 4 mg IV Q4H PRN + Percocet 10 Q4H PRN. Zofran 4 mg IV Q8H PRN for N/V. Vascular surgery on board-no surgical intervention at this time. Diabetes mellitus with hyperglycemia: Patient stopped insulin pump. ISS. Novolog 4 units TID. Levemir 12 units BID. Accuchecks ACHS. Hypoglycemic precautions. Hypertension: Clonidine 0.3 mg PO TID, Hydralazine 100 mg PO TID, Labetalol 500 mg PO BID, Nifedipine 60 mg PO BID, Imdur 120 mg PO QD. Expected to improve with HD and pain control. ESRD on HD TTS: Nephrology consulted to resume HD. Last HD session 10/23. Anxiety and Depression: Ativan 1 mg IV Q4H PRN. Sertraline 200 mg PO QD. History of CVA: ASA 81 mg PO QD, Lipitor 40 mg PO QHS. Seizure disorder: Depakote 500 mg PO BID. Hypothyroidism: Synthroid 176 mcg PO QD. Resolved: Hypertensive emergency, epistaxis, and hematemesis CODE STATUS: FULL CODE DVT Prophylaxis: SCD GI Prophylaxis: Protonix IV Designated medical POA if patient is not able to make medical decisions for themselves: I have reviewed the following legal nurse consultant notes: Nephro, Vascular note. I have reviewed the results of the following tests: CBC, APTT, POC glucose, BMP. I have ordered the following tests: CBC, BMP in the AM. I have discussed the care of this patient with the following independent historian: I have independently interpreted the following test below: I have discussed the management of this patient with the following physician: Dr. Yarbrough I saw and evaluated the patient during the salcido and critical portions of this encounter, and discussed the case in detail with the resident author of this note, I agree with the Assessment and Plan, and my changes, if any, are noted b elow. Patient still with significant pain in her L arm. Reports numbness in her finger tips. Wrapped by Vascular today. Discussed with Caitlyn, started on Gabapentin for possible neuropathic pain. Also reports 2 episodes of bloody/black vomiting and bowel movements. This was not witnessed by the RN. Advised to inform RN if he has another episode. Continue Protonix 40 mg IV QD for now. Hg 8.7 today down from 10.5. BP improved, 141/76 this morning. Continue Clonidine 0.3 mg PO TID, Hydralazine 100 mg PO TID, Labetalol 500 mg PO BID, Nifedipine 60 mg PO BID, Imdur 120 mg PO QD. Mildly elevated potassium of 5.3. Expected to resolve with HD. Nephrology on board. Objective - Vital Signs Vital signs: Vital Signs Temp 97.6 F 10/22/24 20:00 Pulse 81 10/23/24 03:33 Resp 16 10/23/24 03:33 BP 143/83 10/23/24 03:33 Pulse Ox 94 L 10/23/24 03:33 FiO2 Intake & Output 10/22/24 10/23/24 10/23/24 18:59 06:59 18:59 Intake Total 613.997 240 Balance 613.997 240 Weight 63.6 kg Intake: IV 10 Invasive Line 1 10 Intake, IV Titration 123.997 Amount Heparin Sod,Pork in 0.45% 123.997 NaCl 25,000 unit In 0.45 % NaCl 1 250ml.bag @ 18 UNITS/KG/HR 11.104 mls/hr IV .[id number] [facility] Rx#: [id number] Oral 480 240 Other: # Voids 2 - Labs CBC & Chem 7: 10/23/24 07:15 10/23/24 07:15 Labs: Abnormal Lab Results - Last 24 Hours (Table) 10/22/24 10/22/24 10/22/24 Range/Units 07:56 07:56 07:56 WBC 16.2 H (3.8-10.6) k/uL RBC 2.91 L (3.80-5.40) m/uL Hgb 9.1 L (11.4-16.0) gm/dL Hct 29.6 L (34.0-46.0) % MCV 101.7 H (80.0-100.0) fL MCHC 30.8 L (31.0-37.0) g/dL RDW 17.2 H (11.5-15.5) % APTT 49.3 H (22.0-30.0) sec Sodium 127 L (137-145) mmol/L Chloride 93 L (98-107) mmol/L Carbon Dioxide 21 L (22-30) mmol/L BUN 39 H (7-17) mg/dL Creatinine 5.17 H (0.52-1.04) mg/dL Glucose 494 H (74-99) mg/dL POC Glucose (mg/dL) (70-110) mg/dL 10/22/24 10/22/24 10/22/24 Range/Units 08:07 11:31 12:39 WBC (3.8-10.6) k/uL RBC (3.80-5.40) m/uL Hgb (11.4-16.0) gm/dL Hct (34.0-46.0) % MCV (80.0-100.0) fL MCHC (31.0-37.0) g/dL RDW (11.5-15.5) % APTT (22.0-30.0) sec Sodium (137-145) mmol/L Chloride (98-107) mmol/L Carbon Dioxide (22-30) mmol/L BUN (7-17) mg/dL Creatinine (0.52-1.04) mg/dL Glucose (74-99) mg/dL POC Glucose (mg/dL) 508 H* 453 H 404 H (70-110) mg/dL 10/22/24 10/22/24 Range/Units 15:50 16:49 WBC 13.4 H (3.8-10.6) k/uL RBC 2.59 L (3.80-5.40) m/uL Hgb 8.4 L (11.4-16.0) gm/dL Hct 25.8 L (34.0-46.0) % MCV (80.0-100.0) fL MCHC (31.0-37.0) g/dL RDW 17.1 H (11.5-15.5) % APTT (22.0-30.0) sec Sodium (137-145) mmol/L Chloride (98-107) mmol/L Carbon Dioxide (22-30) mmol/L BUN (7-17) mg/dL Creatinine (0.52-1.04) mg/dL Glucose (74-99) mg/dL POC Glucose (mg/dL) 121 H (70-110) mg/dL
[2024-10-23 16:10] LABS: Glucose,Whole Blood 202 mg/dL (70-110)
[2024-10-23] MEDS: GABAPENTIN 300 MG CAP PO SCH (16:27)
--- NOTE | 2024-10-23 18:08 | P.PN ---
Subjective Patient is seen for follow-up for end-stage renal disease. Seen on hemodialysis today. No significant complaints. Objective - Vital Signs Vital signs: Vital Signs Temp 97.8 F 10/23/24 16:25 Pulse 85 10/23/24 16:25 Resp 15 10/23/24 16:25 BP 161/83 10/23/24 16:25 Pulse Ox 96 10/23/24 16:25 FiO2 Intake & Output 10/22/24 10/23/24 10/23/24 18:59 06:59 18:59 Intake Total 613.997 240 858 Output Total 7400 Balance 613.997 240 -6542 Weight 63.6 kg Intake: IV 10 Invasive Line 1 10 Intake, IV Titration 123.997 Amount Heparin Sod,Pork in 0.45% 123.997 NaCl 25,000 unit In 0.45 % NaCl 1 250ml.bag @ 18 UNITS/KG/HR 11.104 mls/hr IV .[id number] [facility] Rx#: [id number] Oral 480 240 458 Hemodialysis 400 Output: Hemodialysis 3900 Hemodialysis Net Amount 3500 Other: # Voids 2 - Exam Patient is awake comfortable no acute distress. She is sleeping but arousable Examination of the heart S1 and S2 Examination of the lungs bilateral breath sounds are heard Abdomen is soft nontender Examination of lower extremities shows no edema. - Labs CBC & Chem 7: 10/23/24 07:15 10/23/24 07:15 Labs: Abnormal Lab Results - Last 24 Hours (Table) 10/23/24 10/23/24 10/23/24 Range/Units 07:15 07:15 11:18 WBC 13.7 H (3.8-10.6) k/uL RBC 2.75 L (3.80-5.40) m/uL Hgb 8.7 L (11.4-16.0) gm/dL Hct 27.5 L (34.0-46.0) % MCV 100.2 H (80.0-100.0) fL RDW 17.1 H (11.5-15.5) % Sodium 132 L (137-145) mmol/L Potassium 5.3 H (3.5-5.1) mmol/L Chloride 92 L (98-107) mmol/L BUN 55 H (7-17) mg/dL Creatinine 7.28 H* (0.52-1.04) mg/dL POC Glucose (mg/dL) 115 H (70-110) mg/dL 10/23/24 Range/Units 16:07 WBC (3.8-10.6) k/uL RBC (3.80-5.40) m/uL Hgb (11.4-16.0) gm/dL Hct (34.0-46.0) % MCV (80.0-100.0) fL RDW (11.5-15.5) % Sodium (137-145) mmol/L Potassium (3.5-5.1) mmol/L Chloride (98-107) mmol/L BUN (7-17) mg/dL Creatinine (0.52-1.04) mg/dL POC Glucose (mg/dL) 202 H (70-110) mg/dL Assessment and Plan Assessment: 1. End-stage renal disease maintained on hemodialysis on Wednesday. Has permacath. 2. LUE AVG placement with post-operative pain and swelling. 3. Hypertension with chronic kidney disease. Stable. 4. Diabetes mellitus. 5. Chronic kidney disease mineral bone disease maintained on PhosLo. 6. Anemia of chronic kidney disease. Plan: Hemodialysis in a.m.
[2024-10-23 20:37] LABS: Glucose,Whole Blood 233 mg/dL (70-110)
[2024-10-24 05:55] LABS: Glucose,Whole Blood 288 mg/dL (70-110)
[2024-10-24 07:38] LABS: Anisocytosis Slight; HGB 8.5 gm/dL (11.4-16.0); Hypochromasia Marked; MCH 32.2 pg (25.0-35.0); MCHC 31.4 g/dL (31.0-37.0); MCV 102.7 fL (80.0-100.0); Macrocytosis Moderate; Mean Platelet Volume 7.7; Platelet Count 301 k/uL (150-450); RBC 2.63 m/uL (3.80-5.40); RDW 16.9 % (11.5-15.5); WBC 10.8 k/uL (3.8-10.6)
[2024-10-24 08:13] LABS: African American GFR (CKD) 13 (>60 ml/min/1.73 sqM); Anion Gap 12 mmol/L; Blood Urea Nitrogen 34 mg/dL (7-17); Calcium 9.1 mg/dL (8.4-10.2); Carbon Dioxide 26 mmol/L (22-30); Chloride 97 mmol/L (98-107); Glucose 204 mg/dL (74-99); Non-African American GFR(CKD) 11 (>60 ml/min/1.73 sqM); Potassium 4.8 mmol/L (3.5-5.1); Sodium 135 mmol/L (137-145)
--- NOTE | 2024-10-24 10:04 | P.PN ---
Subjective Progress Note Date: 10/24/24 Principal diagnosis: Left arm pain Patient was seen resting comfortably with her eyes closed. Arm was elevated on pillows. Objective - Vital Signs Vital signs: Vital Signs Temp 98.1 F 10/23/24 20:15 Pulse 86 10/24/24 04:00 Resp 14 10/24/24 04:00 BP 138/83 10/24/24 04:00 Pulse Ox 99 10/24/24 04:00 FiO2 Intake & Output 10/23/24 10/24/24 10/24/24 18:59 06:59 18:59 Intake Total 858 260 Output Total 7400 Balance -6542 260 Weight 63.5 kg Intake: IV 20 Invasive Line 1 20 Oral 458 240 Hemodialysis 400 Output: Hemodialysis 3900 Hemodialysis Net Amount 3500 Other: # Voids 0 - Exam General appearance: The patient is alert, oriented, appears in no acute distress. HET: Head is normocephalic and atraumatic. Pupils are equal and reactive. Neck: Supple. Chest: Symmetrical, right tunnel catheter clean dry and intact. Abdomen: Soft, nontender, nondistended. Extremities: Normal skin color and turgor. Left fingers with some swelling. Forearm with Jv wrap. Good capillary refill. Neurological: No focal deficits. Strength and sensation are grossly intact. - Labs CBC & Chem 7: 10/24/24 07:06 10/24/24 07:06 Labs: Abnormal Lab Results - Last 24 Hours (Table) 10/23/24 10/23/24 10/23/24 Range/Units 07:15 11:18 16:07 WBC (3.8-10.6) k/uL RBC (3.80-5.40) m/uL Hgb (11.4-16.0) gm/dL Hct (34.0-46.0) % MCV (80.0-100.0) fL RDW (11.5-15.5) % Sodium 132 L (137-145) mmol/L Potassium 5.3 H (3.5-5.1) mmol/L Chloride 92 L (98-107) mmol/L BUN 55 H (7-17) mg/dL Creatinine 7.28 H* (0.52-1.04) mg/dL Glucose (74-99) mg/dL POC Glucose (mg/dL) 115 H 202 H (70-110) mg/dL 10/23/24 10/24/24 10/24/24 Range/Units 20:36 05:50 07:06 WBC 10.8 H (3.8-10.6) k/uL RBC 2.63 L (3.80-5.40) m/uL Hgb 8.5 L (11.4-16.0) gm/dL Hct 27.0 L (34.0-46.0) % MCV 102.7 H (80.0-100.0) fL RDW 16.9 H (11.5-15.5) % Sodium (137-145) mmol/L Potassium (3.5-5.1) mmol/L Chloride (98-107) mmol/L BUN (7-17) mg/dL Creatinine (0.52-1.04) mg/dL Glucose (74-99) mg/dL POC Glucose (mg/dL) 233 H 288 H (70-110) mg/dL 10/24/24 Range/Units 07:06 WBC (3.8-10.6) k/uL RBC (3.80-5.40) m/uL Hgb (11.4-16.0) gm/dL Hct (34.0-46.0) % MCV (80.0-100.0) fL RDW (11.5-15.5) % Sodium 135 L (137-145) mmol/L Potassium (3.5-5.1) mmol/L Chloride 97 L (98-107) mmol/L BUN 34 H (7-17) mg/dL Creatinine 4.72 H (0.52-1.04) mg/dL Glucose 204 H (74-99) mg/dL POC Glucose (mg/dL) (70-110) mg/dL Assessment and Plan Assessment: 1. Left upper extremity pain secondary to recent AVG creation 2. Patent graft with flow to hand per CTA. Palpable thrill and audible bruit. 3. End-stage renal disease on hemodialysis via right chest catheter Plan: 1. Jv wrap applied to left upper extremity 2. Keep elevated 3. May apply ice pack and heat pack as needed 4. No surgical intervention at this time 5. Continue with gabapentin Thank you for this consultation, patient is cleared from vascular surgery for discharge. Follow-up with Dr. Razo as previously scheduled or sooner as needed The impression and plan of care has been dictated as directed. Dr. Yarbrough I performed a history and examination of this patient, discussed the same with the dictator. I agree with the dictator's note ,documented as a scribe. Any additional findings or plans will be noted.
[2024-10-24 11:17] LABS: Glucose,Whole Blood 198 mg/dL (70-110)
[2024-10-24 12:07] VITALS: RESP 18
--- NOTE | 2024-10-24 12:26 | XR ---
EXAMINATION TYPE: XR chest 1V portable DATE OF EXAM: 10/24/2024 11:43 AM COMPARISON: 10/15/2024 CLINICAL INDICATION: Female, 34 years old with history of congested cough, TECHNIQUE: XR chest 1V portable view(s) obtained. FINDINGS: The heart size is normal. The pulmonary vasculature is normal. No suspicious focal consolidation evident. There is blunting of the left costophrenic angle may be s ome underlying atelectasis or minimal effusion. Right-sided double lumen catheter is present with tips in the right atrium region IMPRESSION: 1. Mild infiltrate or effusion within the left costophrenic angle. Correlate for atelectasis. [facility], , 10/24/2024 12:23 PM
--- NOTE | 2024-10-24 12:45 | P.PN ---
Subjective Patient is seen for follow-up for end-stage renal disease. scheduled for hemodialysis today complaining of cough. No shortness of breath. Objective - Vital Signs Vital signs: Vital Signs Temp 97.8 F 10/24/24 10:00 Pulse 96 10/24/24 12:04 Resp 18 10/24/24 12:04 BP 163/85 10/24/24 12:04 Pulse Ox 96 10/24/24 12:04 FiO2 Intake & Output 10/23/24 10/24/24 10/24/24 18:59 06:59 18:59 Intake Total 858 260 490 Output Total 7400 Balance -6542 260 490 Weight 63.5 kg Intake: IV 20 10 Invasive Line 1 20 10 Oral 458 240 480 Hemodialysis 400 Output: Hemodialysis 3900 Hemodialysis Net Amount 3500 Other: # Voids 0 - Exam Patient is awake comfortable no acute distress. Examination of the heart S1 and S2 Examination of the lungs bilateral breath sounds are heard Abdomen is soft nontender Examination of lower extremities shows no edema. - Labs CBC & Chem 7: 10/24/24 07:06 10/24/24 07:06 Labs: Abnormal Lab Results - Last 24 Hours (Table) 10/23/24 10/23/24 10/24/24 Range/Units 16:07 20:36 05:50 WBC (3.8-10.6) k/uL RBC (3.80-5.40) m/uL Hgb (11.4-16.0) gm/dL Hct (34.0-46.0) % MCV (80.0-100.0) fL RDW (11.5-15.5) % Sodium (137-145) mmol/L Chloride (98-107) mmol/L BUN (7-17) mg/dL Creatinine (0.52-1.04) mg/dL Glucose (74-99) mg/dL POC Glucose (mg/dL) 202 H 233 H 288 H (70-110) mg/dL 10/24/24 10/24/24 10/24/24 Range/Units 07:06 07:06 11:15 WBC 10.8 H (3.8-10.6) k/uL RBC 2.63 L (3.80-5.40) m/uL Hgb 8.5 L (11.4-16.0) gm/dL Hct 27.0 L (34.0-46.0) % MCV 102.7 H (80.0-100.0) fL RDW 16.9 H (11.5-15.5) % Sodium 135 L (137-145) mmol/L Chloride 97 L (98-107) mmol/L BUN 34 H (7-17) mg/dL Creatinine 4.72 H (0.52-1.04) mg/dL Glucose 204 H (74-99) mg/dL POC Glucose (mg/dL) 198 H (70-110) mg/dL Assessment and Plan Assessment: 1. End-stage renal disease maintained on hemodialysis on Wednesday. Has permacath. 2. LUE AVG placement with post-operative pain and swelling. 3. Hypertension with chronic kidney disease. Stable. 4. Diabetes mellitus. 5. Chronic kidney disease mineral bone disease maintained on PhosLo. 6. Anemia of chronic kidney disease. Plan: Hemodialysis today
--- NOTE | 2024-10-24 12:50 | P.DS ---
Providers Date of admission: 10/21/24 04:07 Expected date of discharge: 10/24/24 Attending physician: Agnes Cortez MD Consults: 10/21/24 02:43 Consult Physician Routine Consulting Provider: Abril Razo Consult Reason/Comments: Dialysis graft thrombosis Do you want consulting provider notified?: Yes 10/21/24 03:52 Consult Physician Routine Consulting Provider: Gary Andrade Consult Reason/Comments: dialysis patient (T,TH,S) Do you want consulting provider notified?: Yes Primary care physician: Stated None Hospital Course: 34 year old F with PMH of ESRD on HD, HTN, DM, seizure disorder, Anxiety, Hypothyroidism, GERD presents to the ED for intractable left arm pain. She recently underwent left upper extremity loop forearm graft with Dr. Razo on 10/19. Since yesterday, she reports progressively worsening swelling, pain and cold to touch in her left arm which prompted her to come to the ED. Her pain is 10/10. She reports some nausea but no vomiting. No chest pain, shortness of breath, palpitations or lightheadedness. In the ED she underwent extensive evaluation. BP 205/124, HR 116, RR 20, T 98.3F, 99% on RA. CBC, Coag panel, CMP significant for WBC 12.7, RBC 3.32, Hg 10.5, Hct 32, Na 133, Cl 96, BUN 57, Cr 7.02, AST 51. Venous doppler showed thrombosed dialysis graft. EKG sinus tachycardia with short PA. Patient was started on a Heparin drip and admitted for further workup and management. She received Labetalol + Hydralazine IV in the ED for better BP control. She was restarted on her antihypertensive medications. BP improved. Discussed with Dr. Yarbrough, palpable thrill and radial pulse which does not correlate with US results, unlikely compartment syndrome, possible vasospasms, started on Nitroglycerine topical. Repeat Venous doppler showed thrombosed AV graft. CTA was ordered which showed patent dialysis loop graft, focal irregularity involving the cephalic vein which could represent partially occlusive thrombus. Heparin drip was discontinued. Vascular surgery recommended no surgical intervention, start Gabapentin for neuropathic pain and LUE wrapping and elevation. She did have an episode of epixstaxis and unwitnessed hematemesis which resolved after Heparin drip was discontinued. 10/24 Patient was seen and examined. She appeared comfortable as I walked by her room but immediately in distress when I entered her room. She reports stabbing pain in her left forearm. She reports numbness along the first 3 digits of her fingers. She reports sharp and stabbing pain in her forearm. Also reports a wet cough that started yesterday, CXR shows blunting of the left costophrenic angle atelectasis versus effusion. CBC and BMP significant for WBC 10.7, RBC 2.63m Hg 8.5, Hct 27, MCV 102.7, Na 135, Cl 97, BUN 34, Cr 4.72, glu 204. Her pain is likely neuropathic following the median nerve distribution. There is some swelling in her arm I expect this pain to resolve as the swelling improves. Advised LUE elevation. Prescribed Gabapentin x 10 days and Percocet x 3 days for pain control. Follow up with PCP within 1-2 days and Vascular Sx within 1 week of discharge. General: non toxic, mild distress, appears at stated age Derm: warm, dry Head: atraumatic, normocephalic, symmetric Eyes: EOMI, no lid lag, anicteric sclera Mouth: no lip lesion, mucus membranes moist Cardiovascular: good distal perfusion in all 4 extremities Lungs: breathing comfortably, no accessory muscle use Ext: no gross muscle atrophy, no edema, no contractures, 2+ radial pulse LLE with extreme tenderness to palpation and limited ROM. Neuro: no focal neuro deficits Psych: Alert, oriented, appropriate affect Discharge Diagnosis: Intractable LUE pain Epistaxis and Hematemesis DM with hyperglycemia Hypertension ESRD on HD TTS Anxiety and Depression History of CVA Seizure disorder Hypothyroidism Resolved: Hypertensive emergency This complex discharge took 35 minutes to complete. Patient Condition at Discharge: Stable Plan - Discharge Summary New Discharge Prescriptions: New Gabapentin [Neurontin] 300 mg PO TID #30 cap oxyCODONE-APAP 10-325MG [Percocet 10-325 mg] 1 each PO Q4HR PRN #18 tab PRN Reason: Pain SCALE 6-10 Continue Magnesium Hydroxide [Milk of Magnesia Concentrate] 7,200 mg PO DAILY PRN PRN Reason: Constipation Lidocaine 4% Patch 1 patch TOPICAL DAILY@0800 Ipratropium-Albuterol Nebulize [Duoneb 0.5 mg-3 mg/3 ml Soln] 3 ml INHALATION RT-TID PRN each PRN Reason: Shortness Of Breath Or Wheezing Biotene Dry Mouth/Throat 10 ml PO BID PRN PRN Reason: DRY MOUTH/THROAT Acetaminophen [Tylenol] 650 mg PO Q4H PRN PRN Reason: Pain Or Fever > 100.5 Darbepoetin Artur [Aranesp] 40 mcg SQ MO Loratadine [Claritin] 5 mg PO DAILY tab Ondansetron [Zofran] 4 mg PO Q8HR PRN #20 tab PRN Reason: Nausea And Vomiting Sertraline [Zoloft] 200 mg PO DAILY@0800 ALPRAZolam [Xanax] 0.25 mg PO BID PRN PRN Reason: Anxiety cloNIDine HCL [Catapres] 0.3 mg PO TID Colchicine [Colcrys] 0.3 mg PO DAILY #15 each Isosorbide Mononitrate ER [Imdur] 120 mg PO DAILY #60 tab Insulin Aspart [NovoLOG Flexpen] 4 units SQ AC-TID Insulin Aspart [NovoLOG Flexpen] See Protocol SQ ACHS cefuroxime axetiL [Ceftin] 500 mg PO BID Insulin Aspart (For Pump) [NovoLOG (For Pump)] 30 units SQ CONTINUOUS Docusate [Colace] 100 mg PO DAILY@0800 polyethylene glycoL 3350 [Miralax] 17 gm PO AC-LUNCH #527 gm Melatonin 1 mg PO HS tab Butalb/APAP/Caff 50-325-40Mg [Fioricet 50-325-40] 1 tab PO Q4HR PRN PRN Reason: Headache Aspirin 81 mg PO DAILY@0800 #30 tab Famotidine [Pepcid] 20 mg PO BID #60 tab Atorvastatin [Lipitor] 40 mg PO DIRECTED Divalproex ER [Depakote ER] 500 mg PO BID@0800,1700 Levothyroxine Sodium [Synthroid] 175 mcg PO DAILY@0600 Metoclopramide [Reglan] 5 mg PO AC-TID PRN PRN Reason: Nausea Pantoprazole [Protonix] 40 mg PO DAILY@0600 traZODone HCL [Desyrel] 50 mg PO HS Calcium Acetate [PhosLo] 2,001 mg PO TID-W/MEALS Calcium Acetate [PhosLo] 667 mg PO DAILY PRN PRN Reason: W/SNACK hydrALAZINE HCL [Apresoline] 100 mg PO TID #90 tab NIFEdipine XL [Procardia XL] 60 mg PO BID #60 tab Labetalol [Trandate] 500 mg PO BID #150 tab Triphrocaps 1mg Cap 1 cap PO DAILY Insulin Glargine,Hum.rec.anlog [Lantus Solostar Pen] 12 units SQ BID Discontinued HYDROcodone/APAP 7.5-325MG [[facility] 7.5-325] 1 tab PO Q8H PRN PRN Reason: Pain Discharge Medication List Docusate [Colace] 100 mg PO DAILY@0800 02/05/24 [History] Lidocaine 4% Patch 1 patch TOPICAL DAILY@0800 02/05/24 [History] Magnesium Hydroxide [Milk of Magnesia Concentrate] 7,200 mg PO DAILY PRN 02/05/24 [History] Ipratropium-Albuterol Nebulize [Duoneb 0.5 mg-3 mg/3 ml Soln] 3 ml INHALATION RT-TID PRN each 02/14/24 [Rx] polyethylene glycoL 3350 [Miralax] 17 gm PO AC-LUNCH #527 gm 02/14/24 [Rx] Acetaminophen [Tylenol] 650 mg PO Q4H PRN 02/18/24 [History] Biotene Dry Mouth/Throat 10 ml PO BID PRN 02/18/24 [History] Melatonin 1 mg PO HS tab 02/25/24 [Rx] Butalb/APAP/Caff 50-325-40Mg [Fioricet 50-325-40] 1 tab PO Q4HR PRN 03/14/24 [History] Darbepoetin Artur [Aranesp] 40 mcg SQ MO 03/14/24 [History] Loratadine [Claritin] 5 mg PO DAILY tab 03/30/24 [Rx] Aspirin 81 mg PO DAILY@0800 #30 tab 05/18/24 [Rx] Famotidine [Pepcid] 20 mg PO BID #60 tab 07/11/24 [Rx] Ondansetron [Zofran] 4 mg PO Q8HR PRN #20 tab 07/11/24 [Rx] Atorvastatin [Lipitor] 40 mg PO DIRECTED 08/14/24 [History] Divalproex ER [Depakote ER] 500 mg PO BID@0800,1700 08/14/24 [History] Levothyroxine Sodium [Synthroid] 175 mcg PO DAILY@0600 08/14/24 [History] Metoclopramide [Reglan] 5 mg PO AC-TID PRN 08/14/24 [History] Pantoprazole [Protonix] 40 mg PO DAILY@0600 08/14/24 [History] Sertraline [Zoloft] 200 mg PO DAILY@0800 08/14/24 [History] traZODone HCL [Desyrel] 50 mg PO HS 08/14/24 [History] ALPRAZolam [Xanax] 0.25 mg PO BID PRN 09/04/24 [History] Calcium Acetate [PhosLo] 2,001 mg PO TID-W/MEALS 09/04/24 [History] Calcium Acetate [PhosLo] 667 mg PO DAILY PRN 09/04/24 [History] cloNIDine HCL [Catapres] 0.3 mg PO TID 09/04/24 [History] Colchicine [Colcrys] 0.3 mg PO DAILY #15 each 09/23/24 [Rx] Isosorbide Mononitrate ER [Imdur] 120 mg PO DAILY #60 tab 09/23/24 [Rx] Labetalol [Trandate] 500 mg PO BID #150 tab 09/23/24 [Rx] NIFEdipine XL [Procardia XL] 60 mg PO BID #60 tab 09/23/24 [Rx] hydrALAZINE HCL [Apresoline] 100 mg PO TID #90 tab 09/23/24 [Rx] Insulin Aspart [NovoLOG Flexpen] 4 units SQ AC-TID 10/10/24 [History] Insulin Aspart [NovoLOG Flexpen] See Protocol SQ ACHS 10/10/24 [History] Insulin Glargine,Hum.rec.anlog [Lantus Solostar Pen] 12 units SQ BID 10/10/24 [History] Triphrocaps 1mg Cap 1 cap PO DAILY 10/10/24 [History] Insulin Aspart (For Pump) [NovoLOG (For Pump)] 30 units SQ CONTINUOUS 10/19/24 [History] cefuroxime axetiL [Ceftin] 500 mg PO BID 10/19/24 [History] Gabapentin [Neurontin] 300 mg PO TID #30 cap 10/24/24 [Rx] oxyCODONE-APAP 10-325MG [Percocet 10-325 mg] 1 each PO Q4HR PRN #18 tab 10/24/24 [Rx] Follow up Appointment(s)/Referral(s): Abril Razo DO [STAFF PHYSICIAN] - 1 Week None,Stated [Primary Care Provider] - 1-2 days Activity/Diet/Wound Care/Special Instructions: Diet: Renal Discharge Disposition: HOME SELF-CARE
[2024-10-24] MEDS: LORazepam 1 MG TAB PO PRN (13:36)
[2024-10-24 16:04] VITALS: PULSE 93
[2024-10-24 16:14] LABS: Glucose,Whole Blood 139 mg/dL (70-110)
[2024-10-24 16:44] VITALS: BP 112/70; TEMP 98.2
== END 2024-10-24 17:10 | disposition home or self-care (01) | DRG 304 ==
LOC: EC 23:54 → 5NMEDONC 10-21 04:07 → 3SCARD 10-21 09:50
PROVIDERS: ADMIT Internal Medicine; ATTEND Internal Medicine
PROC: 5A1D70Z Performance of Urinary Filtration, Intermittent, Less than 6 Hours Per Day (ICD-10-PCS; principal; 2024-10-22)
DX: I16.1 Hypertensive emergency (principal); N18.6 End stage renal disease; T82.868A Thrombosis due to vascular prosthetic devices, implants and grafts, initial encounter; K92.0 Hematemesis; Y84.8 Other medical procedures as the cause of abnormal reaction of the patient, or of later complication, without mention of misadventure at the time of the procedure; K31.84 Gastroparesis; D63.1 Anemia in chronic kidney disease; E03.9 Hypothyroidism, unspecified; E11.22 Type 2 diabetes mellitus with diabetic chronic kidney disease; E11.319 Type 2 diabetes mellitus with unspecified diabetic retinopathy without macular edema; Z79.890 Hormone replacement therapy; E11.43 Type 2 diabetes mellitus with diabetic autonomic (poly)neuropathy; E11.65 Type 2 diabetes mellitus with hyperglycemia; F17.210 Nicotine dependence, cigarettes, uncomplicated; F32.A Depression, unspecified; F41.9 Anxiety disorder, unspecified; G40.909 Epilepsy, unspecified, not intractable, without status epilepticus; Z99.2 Dependence on renal dialysis; Z96.41 Presence of insulin pump (external) (internal); I12.0 Hypertensive chronic kidney disease with stage 5 chronic kidney disease or end stage renal disease; M89.8X9 Other specified disorders of bone, unspecified site; R04.0 Epistaxis; Z79.4 Long term (current) use of insulin; Z79.82 Long term (current) use of aspirin; Z79.899 Other long term (current) drug therapy; Z82.49 Family history of ischemic heart disease and other diseases of the circulatory system; Z86.73 Personal history of transient ischemic attack (TIA), and cerebral infarction without residual deficits; Z88.5 Allergy status to narcotic agent; Z88.8 Allergy status to other drugs, medicaments and biological substances; Z88.6 Allergy status to analgesic agent; Z91.030 Bee allergy status
CPT/HCPCS: 36415; 71045; 80048; 80053; 85025; 85027; 85610; 85730; 90935; 96365; 96366; 96375; 96376; 99285

== ENCOUNTER 2024-11-02 06:35 | Inpatient (IN) | payer MEDICARE ==
--- NOTE | 2024-11-02 06:50 | ED ---
General Adult HPI - General Source: patient, EMS, RN notes reviewed, old records reviewed Mode of arrival: EMS <Nathan Driver - Last Filed: 11/02/24 06:55> <Jorge Durand - Last Filed: 11/02/24 07:59> - General Chief complaint: Upper Respiratory Infection Stated complaint: SOB Time Seen by Provider: 11/02/24 06:40 - History of Present Illness Initial comments: Patient is a 34-year-old female with past medical history significant for ESRD on hemodialysis 4 times a week, diabetes, GERD, hypertension, seizures disorder, thyroid disorder, chronic pain who presents emergency department for what appears to be volume overload state in the setting of ESRD on hemodialysis. No longer makes urine. Did not miss any dialysis. Presented to dialysis this morning but was hypertensive, short of breath, began developing some generalized chest tightness and pain across her chest. Blood pressure was elevated over 220 at dialysis. Was placed on CPAP by EMS. Was not experiencing any hypoxia there was significant but more increased work of breathing. States she took all of her medications this morning. Has no other acute complaints at this time. Symptoms all started this morning. Was due for dialysis this morning. Recently was admitted to the ICU for similar complaints. Presents for further evaluation at this time. Denies any fevers, chills, cough. Denies any abdominal pain, nausea, vomiting. Recently had new AV fistula placed in the left upper extremity. (Nathan Driver) - Related Data Home Medications Medication Instructions Recorded Confirmed Docusate [Colace] 100 mg PO DAILY@0800 02/05/24 10/21/24 Lidocaine 4% Patch 1 patch TOPICAL DAILY@0802/05/24 10/21/24 Magnesium Hydroxide [Milk of 7,200 mg PO DAILY PRN 02/05/24 10/21/24 Magnesia Concentrate] Acetaminophen [Tylenol] 650 mg PO Q4H PRN 02/18/24 10/21/24 Biotene Dry Mouth/Throat 10 ml PO BID PRN 02/18/24 10/21/24 Butalb/APAP/Caff 50-325-40Mg 1 tab PO Q4HR PRN 03/14/24 10/21/24 [Fioricet 50-325-40] Darbepoetin Artur [Aranesp] 40 mcg SQ MO 03/14/24 10/21/24 Atorvastatin [Lipitor] 40 mg PO DIRECTED 08/14/24 10/21/24 Divalproex ER [Depakote ER] 500 mg PO BID@0800,1700 08/14/24 10/21/24 Levothyroxine Sodium [Synthroid] 175 mcg PO DAILY@0600 08/14/24 10/21/24 Metoclopramide [Reglan] 5 mg PO AC-TID PRN 08/14/24 10/21/24 Pantoprazole [Protonix] 40 mg PO DAILY@0608/14/24 10/21/24 Sertraline [Zoloft] 200 mg PO DAILY@0800 08/14/24 10/21/24 traZODone HCL [Desyrel] 50 mg PO HS 08/14/24 10/21/24 ALPRAZolam [Xanax] 0.25 mg PO BID PRN 09/04/24 10/21/24 Calcium Acetate [PhosLo] 2,001 mg PO TID-W/MEALS 09/04/24 10/21/24 Calcium Acetate [PhosLo] 667 mg PO DAILY PRN 09/04/24 10/21/24 cloNIDine HCL [Catapres] 0.3 mg PO TID 09/04/24 10/21/24 Insulin Aspart [NovoLOG Flexpen] 4 units SQ AC-TID 10/10/24 10/21/24 Insulin Aspart [NovoLOG Flexpen] See Protocol SQ ACHS 10/10/24 10/21/24 Insulin Glargine,Hum.rec.anlog 12 units SQ BID 10/10/24 10/21/24 [Lantus Solostar Pen] Triphrocaps 1mg Cap 1 cap PO DAILY 10/10/24 10/21/24 Insulin Aspart (For Pump) [NovoLOG 30 units SQ CONTINUOUS 10/19/24 10/21/24 (For Pump)] cefuroxime axetiL [Ceftin] 500 mg PO BID 10/19/24 10/21/24 Previous Rx's Medication Instructions Recorded Ipratropium-Albuterol Nebulize 3 ml INHALATION RT-TID PRN each 02/14/24 [Duoneb 0.5 mg-3 mg/3 ml Soln] polyethylene glycoL 3350 [Miralax] 17 gm PO AC-LUNCH #527 gm 02/14/24 Melatonin 1 mg PO HS tab 02/25/24 Loratadine [Claritin] 5 mg PO DAILY tab 03/30/24 Aspirin 81 mg PO DAILY@0800 #30 tab 05/18/24 Famotidine [Pepcid] 20 mg PO BID #60 tab 07/11/24 Ondansetron [Zofran] 4 mg PO Q8HR PRN #20 tab 07/11/24 Colchicine [Colcrys] 0.3 mg PO DAILY #15 each 09/23/24 Isosorbide Mononitrate ER [Imdur] 120 mg PO DAILY #60 tab 09/23/24 Labetalol [Trandate] 500 mg PO BID #150 tab 09/23/24 NIFEdipine XL [Procardia XL] 60 mg PO BID #60 tab 09/23/24 hydrALAZINE HCL [Apresoline] 100 mg PO TID #90 tab 09/23/24 Gabapentin [Neurontin] 300 mg PO TID #30 cap 10/24/24 oxyCODONE-APAP 10-325MG [Percocet 1 each PO Q4HR PRN #18 tab 10/24/24 10-325 mg] Allergies Allergy/AdvReac Type Severity Reaction Status Date / Time hydromorphone HCl Allergy Anaphylaxis Verified 10/21/24 11:45 [From Dilaudid] propoxyphene Allergy Rash/Hives Verified 10/21/24 11:45 [From Darvocet-N] tramadol Allergy Anaphylaxis Verified 10/21/24 11:45 ibuprofen [From Motrin] AdvReac unable to Verified 10/21/24 11:45 take due to kidney disease venom-honey bee AdvReac passes out Verified 10/21/24 11:45 [bee venom (honey bee)] Review of Systems ROS Other: All systems not noted in ROS Statement are negative. <Nathan Driver - Last Filed: 11/02/24 06:55> ROS Other: All systems not noted in ROS Statement are negative. <Jorge Durand - Last Filed: 11/02/24 07:59> ROS Statement: Those systems with pertinent positive or pertinent negative responses have been documented in the HPI. Review of Systems: CONST: Denies fever EYES: Denies blurry vision ENT: Denies nasal congestion C/V: Denies Chest pain RESP: Endorses shortness of breath GI: Denies abdominal pain : Denies dysuria SKIN: Denies rash. MSK: Denies joint pain. NEURO: Denies headache (Nathan Driver) Past Medical History Past Medical History: Diabetes Mellitus, GERD/Reflux, Hypertension, Renal Disease, Seizure Disorder, Thyroid Disorder Additional Past Medical History / Comment(s): Neuropathy, last seizure 2020, gastroparesis, headaches with dialysis, states "fast heart rate" since giving ., receives Hemodialysis Wednesday- and Saturdays at [facility] right chest hemodialysis catheter., severe HTN. patient awaiting Kidney and Pancrease Transplant. , states sometimes she has had stroke -like symptoms but no stroke., hx of c-diff 2013. History of Any Multi-Drug Resistant Organisms: C-DIFF Date of last positivie culture/infection: unknown MDRO Source:: stool Past Surgical History: Adenoidectomy, Section, Cholecystectomy, Orthopedic Surgery, Tonsillectomy Additional Past Surgical History / Comment(s): 2 KNEE SCOPES, EAR TUBES, additional left knee surgery related to fracture, new port a cath jul 29, eye surgeries for diabetic retinopathy. Past Anesthesia/Blood Transfusion Reactions: Previous Problems w/ Anesthesia Additional Past Anesthesia/Blood Transfusion Reaction / Comment(s): confusion Past Psychological History: Anxiety, Depression Smoking Status: Current every day smoker Past Alcohol Use History: None Reported Past Drug Use History: Marijuana, Methamphetamine - Past Family History Father History Unknown: Yes Family Medical History: Unable to Obtain Mother History Unknown: Yes Family Medical History: No Reported History Grandfather History Unknown: Yes Family Medical History: Coronary Artery Disease (CAD) Additional Family Medical History / Comment(s): Diabetes mellitus type 2 <Nathan Driver - Last Filed: 11/02/24 06:55> General Exam <Nathan Driver - Last Filed: 11/02/24 06:55> - General Exam Comments Initial Comments: General: Appears in moderate respiratory distress. HEAD: Normal with no signs of head trauma. EYES: PERRLA, EOMI, conjunctiva normal, no discharge. ENT: Hearing grossly intact, normal oropharynx. RESPIRATORY: Coarse breath sounds bilaterally. Increased work of breathing. C/V: Regular rate and rhythm. S1 and S2 auscultated, no edema, peripheral pulses 2+ and intact throughout ABD: Abd is soft, nontender, nondistended EXT: Normal range of motion, no obvious deformity SKIN: No rashes or lesions observed on exposed skin. NEURO: Alert and oriented x 4. (Nathan Driver) Course Vital Signs 11/02/24 11/02/24 11/02/24 06:39 06:45 06:46 Pulse Rate Respiratory 28 H 25 H Rate Blood Pressure 206/128 O2 Sat by Pulse 100 Oximetry Fraction of 40 40 Inspired Oxygen (FIO2) 11/02/24 11/02/24 11/02/24 07:08 07:43 07:50 Pulse Rate 128 H 122 H 122 H Respiratory 23 20 16 Rate Blood Pressure 205/119 207/121 193/122 O2 Sat by Pulse 100 95 99 Oximetry Fraction of 40 Inspired Oxygen (FIO2) 11/02/24 07:51 Pulse Rate Respiratory Rate Blood Pressure O2 Sat by Pulse Oximetry Fraction of 40 Inspired Oxygen (FIO2) Medical Decision Making - EKG Data -: EKG Interpreted by Tn <Nathan Driver - Last Filed: 11/02/24 06:55> - Lab Data Result diagrams: 11/02/24 06:43 11/02/24 06:43 <Jorge Durand - Last Filed: 11/02/24 07:59> - Medical Decision Making Was pt. sent in by a medical professional or institution ([facility], [employer], urgent care, hospital, or detention...) When possible be specific @ -No Did you speak to anyone other than the patient for history (EMS, parent, family, police, friend...)? What history was obtained from this source @ -No Did you review nursing and triage notes (agree or disagree)? Why? @ -I reviewed and agree with nursing and triage notes Were old charts reviewed (outside hosp., previous admission, EMS record, old EKG, old radiological studies, urgent care reports/EKG's, detention records)? Report findings @ -Reviewed recent visit from October 2024. Patient admitted for issues with her AV fistula at that time. Differential Diagnosis (chest pain, altered mental status, abdominal pain women, abdominal pain men, vaginal bleeding, weakness, fever, dyspnea, syncope, headache, dizziness, GI bleed, back pain, seizure, CVA, palpatations, mental h ealth, musculoskeletal)? @ -Differential Dyspnea: Coronary syndrome, arrhythmia, tamponade, asthma, COPD, pulmonary embolism, pneumonia, pneumothorax, pulmonary effusion, anaphylaxis, diabetic ketoacidosis, flailed chest, pulmonary contusion, diaphragmatic rupture, anemia, neuromuscular, this is not meant to be an all-inclusive list. EKG interpreted by me (3pts min.). @ -As above X-rays interpreted by me (1pt min.). @ -Chest x-ray reveals bilateral pulmonary vascular congestion. CT interpreted by me (1pt min.). @ -None done U/S interpreted by me (1pt. min.). @ -None done What testing was considered but not performed or refused? (CT, X-rays, U/S, labs)? Why? @ -None What meds were considered but not given or refused? Why? @ -None Did you discuss the management of the patient with other professionals (professionals i.e. DrKaterin, PA, ELECT[employer] HEL[employer], lab, RT, psych nurse, nephrology social worker, balloon dipper, te acher, postal sorting officer, case management assistant)? Give summary @ -Discussed with on-call nephrology, Dr. Alvarez who agreed to arrange for dialysis for the patient Was smoking cessation discussed for >3mins.? @ -No Was critical care preformed (if so, how long)? @ -No Were there social determinants of health that impacted care today? How? (Homelessness, low income, unemployed, alcoholism, drug addiction, tra nsportation, low edu. Level, literacy, decrease access to med. care, [facility], rehab)? @ -No Was there de-escalation of care discussed even if they declined (Discuss DNR or withdrawal of care, Hospice)? DNR status @ -No What co-morbidities impacted this encounter? (DM, HTN, Smoking, COPD, CAD, Cancer, CVA, ARF, Chemo, Hep., AIDS, mental health diagnosis, sleep apnea, morbid obesity)? @ -ESRD on hemodialysis Was patient admitted / discharged? Hospital course, mention meds given and route, prescriptions, significant lab abnormalities, going to OR and other pertinent info. @ -Based on patient's presentation and physical exam, presents with suspected volume overload state in the setting of ESRD on hemodialysis. Do not miss any rounds of hemodialysis but he has a known history of ESRD and requires dialysis 4 times a week. Vital signs remarkable for hypertension, as well as increased work of breathing. Patient is currently on CPAP and saturating well. Patient will be transition to BiPAP. Patient will be started on a nitro drip. She is complaining of some chest pain as well for which she will receive some morphine. Patient was in agreement this plan. Chest x-ray reveals bilateral pulm vascular congestion. EKG shows sinus tachycardia. I spoke with Dr. Alvarze of nephrology who agreed to arrange for dialysis. Patient is saturating well on BiPAP. At this time, patient is pending completion of workup. Patient signed out to [facility] emergency department physician Dr. Durand pending results of workup. Undiagnosed new problem with uncertain prognosis? @ -No Drug Therapy requiring intensive monitoring for toxicity (Heparin, Nitro, Insulin, Cardizem)? @ -No Were any procedures done? @ -No (Nathan Driver) Patient admitted to [facility], Dr. Graham has accepted the patient. Patient will receive hemodialysis. Continued on BiPAP and nitroglycerin until dialysis can be arranged. Critical care time: 35 minutes, respiratory failure secondary to fluid overload, end-stage renal disease, hypertensive urgency (Jorge Durand) - Lab Data Lab Results 11/02/24 11/02/24 11/02/24 Range/Units 06:43 06:43 06:43 WBC 22.0 H (3.8-10.6) k/uL RBC 2.66 L (3.80-5.40) m/uL Hgb 8.6 L (11.4-16.0) gm/dL Hct 26.2 L (34.0-46.0) % MCV 98.6 (80.0-100.0) fL MCH 32.2 (25.0-35.0) pg MCHC 32.7 (31.0-37.0) g/dL RDW 16.8 H (11.5-15.5) % Plt Count 447 (150-450) k/uL MPV 8.1 Neutrophils % 79 % Lymphocytes % 7 % Monocytes % 3 % Eosinophils % 10 % Basophils % 1 % Neutrophils # 17.4 H (1.3-7.7) k/uL Lymphocytes # 1.5 (1.0-4.8) k/uL Monocytes # 0.6 (0-1.0) k/uL Eosinophils # 2.1 H (0-0.7) k/uL Basophils # 0.1 (0-0.2) k/uL Anisocytosis Slight Macrocytosis Slight PT 11.2 (10.0-12.5) sec INR 1.0 (<1.2) APTT 26.3 (22.0-30.0) sec Sodium 135 L (137-145) mmol/L Potassium 5.0 (3.5-5.1) mmol/L Chloride 92 L (98-107) mmol/L Carbon Dioxide 24 (22-30) mmol/L Anion Gap 19 mmol/L BUN 70 H (7-17) mg/dL Creatinine 6.25 H (0.52-1.04) mg/dL Est GFR (CKD-EPI)AfAm 9 (>60 ml/min/1.73 sqM) Est GFR (CKD-EPI)NonAf 8 (>60 ml/min/1.73 sqM) Glucose 119 H (74-99) mg/dL Plasma Lactic Acid Christopher (0.7-2.0) mmol/L Calcium 10.5 H (8.4-10.2) mg/dL Magnesium 1.6 (1.6-2.3) mg/dL Total Bilirubin 0.8 (0.2-1.3) mg/dL AST 131 H (14-36) U/L ALT 363 H (4-34) U/L Alkaline Phosphatase 365 H (38-126) U/L Total Protein 7.4 (6.3-8.2) g/dL Albumin 4.7 (3.5-5.0) g/dL 11/02/24 Range/Units 06:43 WBC (3.8-10.6) k/uL RBC (3.80-5.40) m/uL Hgb (11.4-16.0) gm/dL Hct (34.0-46.0) % MCV (80.0-100.0) fL MCH (25.0-35.0) pg MCHC (31.0-37.0) g/dL RDW (11.5-15.5) % Plt Count (150-450) k/uL MPV Neutrophils % % Lymphocytes % % Monocytes % % Eosinophils % % Basophils % % Neutrophils # (1.3-7.7) k/uL Lymphocytes # (1.0-4.8) k/uL Monocytes # (0-1.0) k/uL Eosinophils # (0-0.7) k/uL Basophils # (0-0.2) k/uL Anisocytosis Macrocytosis PT (10.0-12.5) sec INR (<1.2) APTT (22.0-30.0) sec Sodium (137-145) mmol/L Potassium (3.5-5.1) mmol/L Chloride (98-107) mmol/L Carbon Dioxide (22-30) mmol/L Anion Gap mmol/L BUN (7-17) mg/dL Creatinine (0.52-1.04) mg/dL Est GFR (CKD-EPI)AfAm (>60 ml/min/1.73 sqM) Est GFR (CKD-EPI)NonAf (>60 ml/min/1.73 sqM) Glucose (74-99) mg/dL Plasma Lactic Acid Christopher 1.5 (0.7-2.0) mmol/L Calcium (8.4-10.2) mg/dL Magnesium (1.6-2.3) mg/dL Total Bilirubin (0.2-1.3) mg/dL AST (14-36) U/L ALT (4-34) U/L Alkaline Phosphatase (38-126) U/L Total Protein (6.3-8.2) g/dL Albumin (3.5-5.0) g/dL - EKG Data EKG Comments: 12-lead Electrocardiogram Interpretation Note EKG was reviewed and interpreted by myself. 12-lead ECG performed at 0650 is interpreted by me as revealing sinus tachycardia at a rate of 119 beats per minute. Adrian is normal. CO interval is 133 ms, QRS duration 79 ms, QTc is 388 ms.. There were no ST or T wave abnormalities to suggest myocardial ischemia or injury. R wave progression across the precordium was satisfactory. By my interpretation this EKG is non-diagnostic for acute ischemia. (Nathan Driver) Critical Care Time Critical Care Time: Yes Total Critical Care Time: 35 <Jorge Durand - Last Filed: 11/02/24 07:59> Disposition <Nathan Driver - Last Filed: 12/19/24 06:55> Is patient prescribed a controlled substance at d/c from ED?: No Time of Disposition: 07:59 <Jorge Durand - Last Filed: 11/02/24 07:59> Clinical Impression: BiPAP (biphasic positive airway pressure) dependence, Pulmonary edema, ESRD (end stage renal disease), Hypertensive urgency Disposition: ADMITTED IP TO THIS HOSP Condition: Stable Referrals: None,Stated [Primary Care Provider] - 1-2 days
[2024-11-02] MEDS: NITROGLYCERIN-D5W PMX 50 MG in DEXTROSE/WATER 1 250ML.BAG IV STA (06:58)
--- NOTE | 2024-11-02 06:59 | XR ---
EXAMINATION TYPE: XR chest 1V portable DATE OF EXAM: 11/02/2024 COMPARISON: Chest x-ray 9 days earlier CLINICAL INDICATION: Female, 34 years old with history of difficulty breathing; TECHNIQUE: Single frontal view of the chest is obtained. FINDINGS: Stable large bore right internal jugular dialysis catheter. More prominent increased inters titial markings bilaterally. New silhouetting of portions of right and left heart border. Cardiac madalyn houette size stable and upper limits of normal. The osseous structures are intact. IMPRESSION: More prominent at least moderate bilateral interstitial edema. Findings consistent with fluid overload state. [facility], , 11/02/2024 6:57 AM
[2024-11-02] MEDS: MORPHINE SULFATE 4 MG/ML SYRINGE IVP STA (07:02)
[2024-11-02] MEDS: ASPIRIN 81 MG PO STA (07:02)
[2024-11-02 07:24] LABS: Anisocytosis Slight; Basophils # (A) 0.1 k/uL (0-0.2); Basophils % (A) 1 %; Eosinophils # (A) 2.1 k/uL (0-0.7); Eosinophils % (A) 10 %; HCT 26.2 % (34.0-46.0); HGB 8.6 gm/dL (11.4-16.0); Lymphocytes # (A) 1.5 k/uL (1.0-4.8); Lymphocytes % (A) 7 %; MCH 32.2 pg (25.0-35.0); MCHC 32.7 g/dL (31.0-37.0); MCV 98.6 fL (80.0-100.0); Macrocytosis Slight; Mean Platelet Volume 8.1; Monocytes # (A) 0.6 k/uL (0-1.0); Monocytes % (A) 3 %; Neutrophils # (A) 17.4 k/uL (1.3-7.7); Neutrophils % (A) 79 %; Platelet Count 447 k/uL (150-450); RBC 2.66 m/uL (3.80-5.40); RDW 16.8 % (11.5-15.5)
[2024-11-02 07:33] LABS: Partial Thromboplastin Time 26.3 sec (22.0-30.0); Prothrombin Time 11.2 sec (10.0-12.5)
[2024-11-02] MEDS ORDERED: NALOXONE 0.4 MG/ML 1 ML VIAL IV PRN (07:48)
[2024-11-02 07:54] LABS: ALT 363 U/L (4-34); AST 131 U/L (14-36); African American GFR (CKD) 9 (>60 ml/min/1.73 sqM); Albumin 4.7 g/dL (3.5-5.0); Alkaline Phosphatase 365 U/L (38-126); Anion Gap 19 mmol/L; Blood Urea Nitrogen 70 mg/dL (7-17); Calcium 10.5 mg/dL (8.4-10.2); Carbon Dioxide 24 mmol/L (22-30); Chloride 92 mmol/L (98-107); Glucose 119 mg/dL (74-99); Magnesium 1.6 mg/dL (1.6-2.3); Non-African American GFR(CKD) 8 (>60 ml/min/1.73 sqM); Sodium 135 mmol/L (137-145); Total Bilirubin 0.8 mg/dL (0.2-1.3); Total Protein 7.4 g/dL (6.3-8.2)
[2024-11-02 08:23] LABS: NT-Pro-B-Type Natriuretic Pept 38800 pg/mL
[2024-11-02] MEDS ORDERED: METOCLOPRAMIDE 5 MG TAB PO PRN (09:00)
[2024-11-02] MEDS: FAMOTIDINE 20 MG TAB PO SCH (09:47)
[2024-11-02] MEDS: LORATADINE 10 MG TAB PO SCH (09:47)
[2024-11-02] MEDS: oxyCODONE-APAP 10-325MG 1 EACH TAB PO PRN (09:47)
[2024-11-02] MEDS: GABAPENTIN 300 MG CAP PO SCH (09:48)
--- NOTE | 2024-11-02 10:28 | P.NPCON ---
History of Present Illness - Reason for Consult end stage renal disease - History of Present Illness Reason for consultation: End-stage renal disease History of present illness: Patient is a 34-year-old female seen in renal consultation for end-stage renal disease. She is maintained on hemodialysis Wednesday. Patient states she went to hemodialysis this morning but was sent to the hospital as she was extremely short of breath and hypertensive. Patient is currently maintained on nitroglycerin drip. She is also undergoing hemodialysis. Home antihypertensives have been resumed. She is currently on BiPAP. Patient denies missing any dialysis treatments. She makes no urine. No fever or chills. No vomiting or diarrhea. Patient has longstanding history of diabetes. Vital signs are stable. Blood pressure high. On nitroglycerin drip. General: Sitting up in bed. HEENT: On BiPAP. LUNGS: Scattered rhonchi. HEART: Rate and Rhythm are regular. ABDOMEN: Nontender. EXTREMITITES: No edema. Past Medical History Past Medical History: Diabetes Mellitus, GERD/Reflux, Hypertension, Renal Disease, Seizure Disorder, Thyroid Disorder Additional Past Medical History / Comment(s): Neuropathy, last seizure 2020, gastroparesis, headaches with dialysis, states "fast heart rate" since giving ., receives Hemodialysis and Saturdays at [facility] right chest hemodialysis catheter., severe HTN. patient awaiting Kidney and Pancrease Transplant. , states sometimes she has had stroke -like symptoms but no stroke., hx of c-diff 2013. History of Any Multi-Drug Resistant Organisms: C-DIFF Date of last positivie culture/infection: unknown MDRO Source:: stool Past Surgical History: Adenoidectomy, Section, Cholecystectomy, Orthopedic Surgery, Tonsillectomy Additional Past Surgical History / Comment(s): 2 KNEE SCOPES, EAR TUBES, additional left knee surgery related to fracture, new port a cath jul 29, eye surgeries for diabetic retinopathy. Past Anesthesia/Blood Transfusion Reactions: Previous Problems w/ Anesthesia Additional Past Anesthesia/Blood Transfusion Reaction / Comment(s): confusion Past Psychological History: Anxiety, Depression Smoking Status: Current every day smoker Past Alcohol Use History: None Reported Past Drug Use History: Marijuana, Methamphetamine - Past Family History Father History Unknown: Yes Family Medical History: Unable to Obtain Mother History Unknown: Yes Family Medical History: No Reported History Grandfather History Unknown: Yes Family Medical History: Coronary Artery Disease (CAD) Additional Family Medical History / Comment(s): Diabetes mellitus type 2 Medications and Allergies Home Medications Medication Instructions Recorded Confirmed Type Docusate [Colace] 100 mg PO DAILY@0800 02/05/24 11/02/24 History Lidocaine 4% Patch 1 patch TOPICAL DAILY@0800 02/05/24 11/02/24 History Magnesium Hydroxide [Milk of 7,200 mg PO DAILY PRN 02/05/24 11/02/24 History Magnesia Concentrate] Ipratropium-Albuterol Nebulize 3 ml INHALATION RT-TID PRN each 02/14/24 11/02/24 Rx [Duoneb 0.5 mg-3 mg/3 ml Soln] polyethylene glycoL 3350 [Miralax] 17 gm PO AC-LUNCH #527 gm 02/14/24 11/02/24 Rx Acetaminophen [Tylenol] 650 mg PO Q4H PRN 02/18/24 11/02/24 History Biotene Dry Mouth/Throat 10 ml PO BID PRN 02/18/24 11/02/24 History Melatonin 1 mg PO HS tab 02/25/24 11/02/24 Rx Butalb/APAP/Caff 50-325-40Mg 1 tab PO Q4HR PRN 03/14/24 11/02/24 History [Fioricet 50-325-40] Darbepoetin Artur [Aranesp] 40 mcg SQ MO 03/14/24 11/02/24 History Loratadine [Claritin] 5 mg PO DAILY tab 03/30/24 11/02/24 Rx Aspirin 81 mg PO DAILY@0800 #30 tab 05/18/24 11/02/24 Rx Famotidine [Pepcid] 20 mg PO BID #60 tab 07/11/24 11/02/24 Rx Atorvastatin [Lipitor] 40 mg PO DIRECTED 08/14/24 11/02/24 History Divalproex ER [Depakote ER] 500 mg PO BID@0800,1700 08/14/24 11/02/24 History Levothyroxine Sodium [Synthroid] 175 mcg PO DAILY@0600 08/14/24 11/02/24 History Metoclopramide [Reglan] 5 mg PO AC-TID PRN 08/14/24 11/02/24 History Pantoprazole [Protonix] 40 mg PO DAILY@0600 08/14/24 11/02/24 History Sertraline [Zoloft] 200 mg PO DAILY@0800 08/14/24 11/02/24 History traZODone HCL [Desyrel] 50 mg PO HS 08/14/24 11/02/24 History ALPRAZolam [Xanax] 0.25 mg PO BID PRN 09/04/24 11/02/24 History Calcium Acetate [PhosLo] 2,001 mg PO TID-W/MEALS 09/04/24 11/02/24 History Calcium Acetate [PhosLo] 667 mg PO DAILY PRN 09/04/24 11/02/24 History cloNIDine HCL [Catapres] 0.3 mg PO TID 09/04/24 11/02/24 History Colchicine [Colcrys] 0.3 mg PO DAILY #15 each 09/23/24 11/02/24 Rx Isosorbide Mononitrate ER [Imdur] 120 mg PO DAILY #60 tab 09/23/24 11/02/24 Rx Labetalol [Trandate] 500 mg PO BID #150 tab 09/23/24 11/02/24 Rx NIFEdipine XL [Procardia XL] 60 mg PO BID #60 tab 09/23/24 11/02/24 Rx hydrALAZINE HCL [Apresoline] 100 mg PO TID #90 tab 09/23/24 11/02/24 Rx Triphrocaps 1mg Cap 1 cap PO DAILY 10/10/24 11/02/24 History Gabapentin [Neurontin] 600 mg PO TID 11/02/24 11/02/24 History Insulin Aspart (For Pump) [NovoLOG 0.01 unit SQ-PUMP CONTINUOUS 11/02/24 11/02/24 History (For Pump)] Ondansetron Odt [Zofran Odt] 4 mg PO Q8HR PRN 11/02/24 11/02/24 History oxyCODONE-APAP 10-325MG [Percocet 1 tab PO Q4HR PRN 11/02/24 11/02/24 History 10-325 mg] Allergies Allergy/AdvReac Type Severity Reaction Status Date / Time hydromorphone HCl Allergy Anaphylaxis Verified 10/21/24 11:45 [From Dilaudid] propoxyphene Allergy Rash/Hives Verified 10/21/24 11:45 [From Darvocet-N] tramadol Allergy Anaphylaxis Verified 10/21/24 11:45 ibuprofen [From Motrin] AdvReac unable to Verified 10/21/24 11:45 take due to kidney disease venom-honey bee AdvReac passes out Verified 10/21/24 11:45 [bee venom (honey bee)] Physical Exam Vitals: Vital Signs Temp Pulse Resp BP Pulse Ox FiO2 11/02/24 10:15 110 H 16 182/109 95 11/02/24 09:53 98.9 F 118 H 18 198/117 97 11/02/24 09:21 116 H 16 189/115 100 11/02/24 09:01 117 H 16 193/118 100 11/02/24 08:28 123 H 18 195/116 100 11/02/24 07:51 40 11/02/24 07:50 122 H 16 193/122 99 40 11/02/24 07:43 122 H 20 207/121 95 11/02/24 07:08 128 H 23 205/119 100 11/02/24 06:46 40 11/02/24 06:45 25 H 40 11/02/24 06:39 28 H 206/128 100 Intake and Output 11/01/24 11/02/24 11/02/24 22:59 06:59 14:59 Intake Total 0.675 Balance 0.675 Intake: Intake, IV Titration 0.675 Amount Nitroglycerin-D5w Pmx 50 0.675 mg In Dextrose/Water 1 250ml.bag @ 5 MCG/MIN 1.5 mls/hr IV .Q24H STA Rx#: [id number] Other: Weight 61.69 kg Results - Lab Results Most recent lab results Calcium 10.5 mg/dL (8.4-10.2) H 11/02/24 06:43 Magnesium 1.6 mg/dL (1.6-2.3) 11/02/24 06:43 11/02/24 06:43 11/02/24 06:43 Assessment and Plan Plan: Assessment: 1. End-stage renal disease maintained on hemodialysis on Wednesday schedule. Has permacath. Has a maturing left upper extremity AV fistula. 2. Acute hypoxic respiratory failure. 3. Volume overload. 4. Anemia of chronic kidney disease. 5. Hypertensive emergency. 6. Chronic kidney disease mineral bone disease. Calcium level 10.5. Albumin 4.7. Corrected calcium normal. Was also on PhosLo. Plan: Currently seen while undergoing hemodialysis. Another treatment tomorrow. Challenge ultrafiltration. Check iron studies. Home antihypertensives resumed. Wean nitroglycerin drip. Check phosphorus level. Thank you for the consultation. I will continue to follow the patient with you during her hospital stay.
[2024-11-02] MEDS ORDERED: DEXTROSE 50% SYRINGE 50 ML IVP PRN (10:47)
[2024-11-02 11:24] LABS: Phosphorus 2.6 mg/dL (2.5-4.5)
[2024-11-02 11:59] LABS: Glucose,Whole Blood 140 mg/dL (70-110)
[2024-11-02] MEDS: INSULIN ASPART (NovoLOG) 100 UNIT/ML VIAL SQ SCH (12:07)
[2024-11-02] MEDS: polyethylene glycoL 3350 17 GM POWD.PACK PO SCH (13:55)
[2024-11-02] MEDS: cloNIDine HCL 0.1 MG TAB PO SCH (14:03)
[2024-11-02] MEDS: hydrALAZINE HCL 50 MG TAB PO SCH (14:03)
--- NOTE | 2024-11-02 14:22 | P.HPIM ---
History of Present Illness H&P Date: 11/02/24 Patient is a 34-year-old female with past medical history of ESRD on hemodialysis ([facility]), hypertension, history of CVA in November 2023, insulin- dependent diabetes mellitus, seizure disorder, hypothyroidism, anxiety, GERD presents to the emergency department for hypertension, chest pain, and dyspnea. She states that she was sent here from dialysis due to her systolic blood pressure being close to 250. She notes that the chest pain feels like a squeezing/tight pressure across the entire front of her chest which does radiate to her back. It worsens with deep inspiration. She rates it as a 6/10 pain. She notes that she usually feels this chest pain when she is volume overloaded and that it improves with dialysis. She endorses sleeping in a recliner with 1 pillow since April. She currently endorses a squeezing global headache noting that she feels pressure behind her eyes. She states that she has felt this pain before and she usually just sleeps it off or takes Tylenol for it. She denies vision changes or ringing in the ears. She also notes that she has had intermittent bloody noses for about 3 days with about 20 episodes per day lasting anywhere from 30 seconds to 5 minutes. She states compliance with her medications. She currently endorses chest pain, dyspnea, nausea, headache, and epistaxis. Denies fever, chills, abdominal pain, vomiting, cough. Initial EKG independently interpreted: Sinus tachycardia no significant ST-T wave changes Initial chest x-ray independently interpreted: Bilateral interstitial opacities Initial labs: WBC 22, hemoglobin 8.6, hematocrit 26.2, platelets 447, PT 11.2, INR 1, APTT 26.3, sodium 135, potassium 5, chloride 92, CO2 24, BUN 70, creatinine 6.25, glucose 119, lactic acid 1.5, calcium 10.5, magnesium 1.6, AST 121, ALT 363, alkaline phosphatase 365, troponin X1 0.074, BNP 38,800. Initial vitals: BP 206/128, NH 128, RR 28, 100% oxygen saturation on CPAP. ED documentation reviewed. Review of systems: Pertinent positives and negatives as discussed in HPI, a complete review of systems was performed and all other systems are negative. 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 Cranial nerves II to XII grossly intact. Psych: Appropriate affect and mood Assessment and Plan: Patient is a 34-year-old female with past medical history of ESRD on hemodialysis ([facility]), hypertension, history of CVA in November 2023, insulin-dependent diabetes mellitus, seizure disorder, hypothyroidism, anxiety, GERD admitted for hypertensive emergency. Active #. Hypertensive emergency #. Acute hypoxic respiratory failure #. Acute pulmonary edema #. Hypervolemia Goal BP 160s/110s Maintain nitroglycerin drip, discussed management with natural resource technician, patient will likely need to be in ICU for further titration of antihypertensive Nephrology consulted for management of dialysis Resume home oral medication -Home antihypertensive started, clonidine 0.3 p.o. 3 times daily, hydralazine 100 3 times daily, Imdur 120 daily, labetalol 500 twice daily, nifedipine 60 twice daily #. Acute transaminitis, possibly congestive hepatopathy Repeat CMP this afternoon Right upper quadrant ultrasound #. Acute chest pain, likely due to hypervolemia #NSTEMI, likely type II No improvement with nitro drip Trend troponins Continuous telemetry #. Leukocytosis likely reactive Monitor CBC #. Tension headache Continue Tylenol 650 mg PO every 6 hours as needed #. Epistaxis, likely anterior Nasal packing as needed Chronic #. ESRD on hemodialysis ([facility]) Nephrology consulted for management of dialysis #. Insulin-dependent diabetes mellitus Insulin sliding scale while inpatient Insulin pump off Accu-Cheks ACHS Hypoglycemic precautions #. History of CVA Continue aspirin 81 mg PO daily #. Hypertension #. Hypothyroidism #. Seizure disorder #. Anxiety #. Gout-hold colchicine #. GERD Continue home medications DVT prophylaxis: Subcutaneous heparin every 8 hours GI prophylaxis: Protonix 40 mg PO daily The patient is admitted with an anticipated last than 2 midnight stay for evaluation of hypertensive emergency. CODE STATUS: Full code Discussed with: Dr. Graham Anticipated discharge place: Home A total of 3 5 minutes was spent on the care of this complex patient more than 50% of the time was spent in counseling and care coordination. I have seen and evaluated the patient today. Discussed with the resident and agree with the residents finding and plan as documented in the resident's note. Changes highlighted in blue font. Past Medical History Past Medical History: Diabetes Mellitus, GERD/Reflux, Hypertension, Renal Disease, Seizure Disorder, Thyroid Disorder Additional Past Medical History / Comment(s): Neuropathy, last seizure 2020, gastroparesis, headaches with dialysis, states "fast heart rate" since giving ., receives Hemodialysis Wednesday- and Saturdays at [facility]., right chest hemodialysis catheter., severe HTN. patient awaiting Kidney and Pancrease Transplant. , states sometimes she has had stroke -like symptoms but no stroke., hx of c-diff 2013. History of Any Multi-Drug Resistant Organisms: C-DIFF Date of last positivie culture/infection: unknown MDRO Source:: stool Past Surgical History: Adenoidectomy, Section, Cholecystectomy, Orthopedic Surgery, Tonsillectomy Additional Past Surgical History / Comment(s): 2 KNEE SCOPES, EAR TUBES, additional left knee surgery related to fracture, new port a cath jul 29, eye surgeries for diabetic retinopathy. Past Anesthesia/Blood Transfusion Reactions: Previous Problems w/ Anesthesia Additional Past Anesthesia/Blood Transfusion Reaction / Comment(s): confusion Past Psychological History: Anxiety, Depression Smoking Status: Current every day smoker Past Alcohol Use History: None Reported Past Drug Use History: Marijuana, Methamphetamine - Past Family History Father History Unknown: Yes Family Medical History: Unable to Obtain Mother History Unknown: Yes Family Medical History: No Reported History Grandfather History Unknown: Yes Family Medical History: Coronary Artery Disease (CAD) Additional Family Medical History / Comment(s): Diabetes mellitus type 2 Medications and Allergies Home Medications Medication Instructions Recorded Confirmed Type Docusate [Colace] 100 mg PO DAILY@0800 02/05/24 11/02/24 History Lidocaine 4% Patch 1 patch TOPICAL DAILY@0800 02/05/24 11/02/24 History Magnesium Hydroxide [Milk of 7,200 mg PO DAILY PRN 02/05/24 11/02/24 History Magnesia Concentrate] Ipratropium-Albuterol Nebulize 3 ml INHALATION RT-TID PRN each 02/14/24 11/02/24 Rx [Duoneb 0.5 mg-3 mg/3 ml Soln] polyethylene glycoL 3350 [Miralax] 17 gm PO AC-LUNCH #527 gm 02/14/24 11/02/24 Rx Acetaminophen [Tylenol] 650 mg PO Q4H PRN 02/18/24 11/02/24 History Biotene Dry Mouth/Throat 10 ml PO BID PRN 02/18/24 11/02/24 History Melatonin 1 mg PO HS tab 02/25/24 11/02/24 Rx Butalb/APAP/Caff 50-325-40Mg 1 tab PO Q4HR PRN 03/14/24 11/02/24 History [Fioricet 50-325-40] Darbepoetin Artur [Aranesp] 40 mcg SQ MO 03/14/24 11/02/24 History Loratadine [Claritin] 5 mg PO DAILY tab 03/30/24 11/02/24 Rx Aspirin 81 mg PO DAILY@0800 #30 tab 05/18/24 11/02/24 Rx Famotidine [Pepcid] 20 mg PO BID #60 tab 07/11/24 11/02/24 Rx Atorvastatin [Lipitor] 40 mg PO DIRECTED 08/14/24 11/02/24 History Divalproex ER [Depakote ER] 500 mg PO BID@0800,1700 08/14/24 11/02/24 History Levothyroxine Sodium [Synthroid] 175 mcg PO DAILY@0600 08/14/24 11/02/24 History Metoclopramide [Reglan] 5 mg PO AC-TID PRN 08/14/24 11/02/24 History Pantoprazole [Protonix] 40 mg PO DAILY@0600 08/14/24 11/02/24 History Sertraline [Zoloft] 200 mg PO DAILY@0800 08/14/24 11/02/24 History traZODone HCL [Desyrel] 50 mg PO HS 08/14/24 11/02/24 History ALPRAZolam [Xanax] 0.25 mg PO BID PRN 09/04/24 11/02/24 History Calcium Acetate [PhosLo] 2,001 mg PO TID-W/MEALS 09/04/24 11/02/24 History Calcium Acetate [PhosLo] 667 mg PO DAILY PRN 09/04/24 11/02/24 History cloNIDine HCL [Catapres] 0.3 mg PO TID 09/04/24 11/02/24 History Colchicine [Colcrys] 0.3 mg PO DAILY #15 each 09/23/24 11/02/24 Rx Isosorbide Mononitrate ER [Imdur] 120 mg PO DAILY #60 tab 09/23/24 11/02/24 Rx Labetalol [Trandate] 500 mg PO BID #150 tab 09/23/24 11/02/24 Rx NIFEdipine XL [Procardia XL] 60 mg PO BID #60 tab 09/23/24 11/02/24 Rx hydrALAZINE HCL [Apresoline] 100 mg PO TID #90 tab 09/23/24 11/02/24 Rx Triphrocaps 1mg Cap 1 cap PO DAILY 10/10/24 11/02/24 History Gabapentin [Neurontin] 600 mg PO TID 11/02/24 11/02/24 History Insulin Aspart (For Pump) [NovoLOG 0.01 unit SQ-PUMP CONTINUOUS 11/02/24 11/02/24 History (For Pump)] Ondansetron Odt [Zofran Odt] 4 mg PO Q8HR PRN 11/02/24 11/02/24 History oxyCODONE-APAP 10-325MG [Percocet 1 tab PO Q4HR PRN 11/02/24 11/02/24 History 10-325 mg] Allergies Allergy/AdvReac Type Severity Reaction Status Date / Time hydromorphone HCl Allergy Anaphylaxis Verified 10/21/24 11:45 [From Dilaudid] propoxyphene Allergy Rash/Hives Verified 10/21/24 11:45 [From Darvocet-N] tramadol Allergy Anaphylaxis Verified 10/21/24 11:45 ibuprofen [From Motrin] AdvReac unable to Verified 10/21/24 11:45 take due to kidney disease venom-honey bee AdvReac passes out Verified 10/21/24 11:45 [bee venom (honey bee)] Physical Exam Vitals: Vital Signs Pulse Resp BP Pulse Ox FiO2 11/02/24 07:51 40 11/02/24 07:50 122 H 16 193/122 99 40 11/02/24 07:43 122 H 20 207/121 95 11/02/24 07:08 128 H 23 205/119 100 11/02/24 06:46 40 11/02/24 06:45 25 H 40 11/02/24 06:39 28 H 206/128 100 Intake and Output 11/01/24 11/02/24 11/02/24 22:59 06:59 14:59 Intake Total 0.675 Balance 0.675 Intake: Intake, IV Titration 0.675 Amount Nitroglycerin-D5w Pmx 50 0.675 mg In Dextrose/Water 1 250ml.bag @ 5 MCG/MIN 1.5 mls/hr IV .Q24H STA Rx#: [id number] Other: Weight 61.69 kg Results CBC & Chem 7: 11/02/24 06:43 11/02/24 06:43 Labs: Abnormal Lab Results - Last 24 Hours (Table) 11/02/24 11/02/24 11/02/24 Range/Units 06:43 06:43 06:43 WBC 22.0 H (3.8-10.6) k/uL RBC 2.66 L (3.80-5.40) m/uL Hgb 8.6 L (11.4-16.0) gm/dL Hct 26.2 L (34.0-46.0) % RDW 16.8 H (11.5-15.5) % Neutrophils # 17.4 H (1.3-7.7) k/uL Eosinophils # 2.1 H (0-0.7) k/uL Sodium 135 L (137-145) mmol/L Chloride 92 L (98-107) mmol/L BUN 70 H (7-17) mg/dL Creatinine 6.25 H (0.52-1.04) mg/dL Glucose 119 H (74-99) mg/dL Calcium 10.5 H (8.4-10.2) mg/dL AST 131 H (14-36) U/L ALT 363 H (4-34) U/L Alkaline Phosphatase 365 H (38-126) U/L Troponin I 0.074 H* (0.000-0.034) ng/mL
[2024-11-02 15:07] LABS: % Iron Saturation 12.94 (12.00-45.00)
[2024-11-02] MEDS: HEPARIN SODIUM,PORCINE 5,000 UNIT/ML 1 ML VIAL SQ SCH (15:22)
[2024-11-02] MEDS: CLEVIDIPINE BUTYRATE 25 MG in EMPTY BAG 1 BAG IV SCH (15:34)
--- NOTE | 2024-11-02 16:00 | US ---
EXAMINATION TYPE: US abdomen limited DATE OF EXAM: 11/02/2024 COMPARISON: US kidneys CLINICAL INDICATION: Female, 34 years old with history of transaminitis; Abnormal labs TECHNIQUE: Grayscale and color Doppler imaging of the right upper quadrant. FINDINGS: EXAM MEASUREMENTS: Liver Length: 19.4 cm CBD: 0.4 cm, color Doppler imaging was utilized to isolate the common bile duct for measurement. Right Kidney: 8.6 x 3.3 x 3.2 cm DATA WAREHOUSING MANAGER NOTES: Pancreas: wnl Liver: Enlarged, heterogeneous Gallbladder: Surgically absent Evidence for sonographic Hidalgo's sign: No CBD: wnl Right Kidney: No evidence of hydro, small in size increased renal cortical echotexture. IMPRESSION: 1. Relatively normal sonographic appearance of the liver no dilated ducts cystic structures or deedee s. 2. Increased echotexture of the kidney with atrophy changes correlate for medical renal disease. [facility], Workstation: [facility], 11/02/2024 3:58 PM
[2024-11-02 16:37] LABS: ALT 316 U/L (4-34); AST 90 U/L (14-36); African American GFR (CKD) 19 (>60 ml/min/1.73 sqM); Albumin 4.2 g/dL (3.5-5.0); Alkaline Phosphatase 330 U/L (38-126); Anion Gap 11 mmol/L; Blood Urea Nitrogen 28 mg/dL (7-17); Calcium 9.3 mg/dL (8.4-10.2); Carbon Dioxide 26 mmol/L (22-30); Chloride 93 mmol/L (98-107); Glucose 408 mg/dL (74-99); Non-African American GFR(CKD) 17 (>60 ml/min/1.73 sqM); Potassium 4.5 mmol/L (3.5-5.1); Sodium 130 mmol/L (137-145); Total Bilirubin 0.8 mg/dL (0.2-1.3); Total Protein 6.6 g/dL (6.3-8.2)
[2024-11-02 17:07] LABS: Glucose,Whole Blood 465 mg/dL (70-110)
[2024-11-02] MEDS: DIVALPROEX ER 500 MG TAB.ER.24H PO SCH (17:10)
--- NOTE | 2024-11-02 17:57 | P.CNPUL ---
History of Present Illness Consult date: 11/02/24 Reason for consult: dyspnea, hypoxemia History of present illness: This is a 34-year-old female patient came into the emergency department with a cute respiratory distress. The patient is known to us and the patient has end- stage renal disease on hemodialysis 4 times a week, Wednesday, Wednesday, and Wednesday. The patient was found to be having significant shortness of breath and hemodialysis and the patient was diverted to the hospital. Initially she was placed on a BiPAP and she was noted to be and pulmonary edema/fluid overload. At the same time, the patient was quite hypertensive and her initial blood pressure was 206/128. A stat hemodialysis was done in the emergency department. Subsequently, the patient respiratory is improved and she was weaned off the BiPAP and the patient is currently on 2 L of O2 nasal cannula with a pulse ox of 97%. Blood pressure remains elevated. Recommended Cleviprex drip that was started in the emergency. At the same time, the patient on clonidine 0.3 mg p.o. 3 times daily, hydralazine 100 mg p.o. 3 times daily, labetalol 500 mg p.o. twice daily, and Procardia XL 60 mg p.o. twice daily. Clevidipine drip is running at 1 mg an hour. No chest pain. She is lethargic. There is no focal neurological deficits. The WBC count is at 22 with a hemoglobin 8.6 and a platelet count of 447. Sodium is at 130, potassium is 4.5, BUN 28 with a creatinine of 3.4 and a bicarb is at 26. Blood sugars have been fluctuating between 140 and 465. LFTs show an AST of 90, ALT of 316, alkaline phosphatase of 330. Troponins are abnormal with levels of 0.07, 0.09 and 0.07 respectively and the proBNP level is 13,800. Protein and albumin are both within normal limits. Ultrasound of the abdomen was done and showed no dilatation of the hepatic ducts and the common bile duct was also within normal limits. The gallbladder was surgically absent. No fever. No chest pain. No other complaints otherwise for now. The patient makes no urine. In terms of her blood sugar control, the patient has been maintained on insulin pump on outpatient basis. Review of Systems CONSTITUTIONAL: Denies any recent significant weight loss or weight gain. EYES: Denies change in vision. EARS, NOSE, MOUTH, THROAT: Denies headaches, denies sore throat. CARDIOVASCULAR: Denies chest pain, palpitations or syncopal episodes. RESPIRATORY: Positive for shortness of breath, no cough, congestion or hemoptysis. GASTROINTESTINAL: Denies change in appetite, denies abdominal pain GENITOURINARY: Denies hematuria, denies infections. MUSKULOSKELETAL: Denies pain, denies swelling. INTEGUMENTARY: Denies rash, denies eczema. NEUROLOGICAL: Denies recent memory loss, no recent seizure activity. PSYCHIATRIC: Denies anxiety, denies depression. HEMATOLOGIC/LYMPHATIC: Denies anemia, denies enlarged lymph nodes. Past Medical History Past Medical History: Diabetes Mellitus, GERD/Reflux, Hypertension, Renal Disease, Seizure Disorder, Thyroid Disorder Additional Past Medical History / Comment(s): Neuropathy, last seizure 2020, g astroparesis, headaches with dialysis, states "fast heart rate" since giving ., receives Hemodialysis Wednesday- and Saturdays at [facility] right chest hemodialysis catheter., severe HTN. patient awaiting Kidney and Pancrease Transplant. , states sometimes she has had stroke -like symptoms but no stroke., hx of c-diff 2013. History of Any Multi-Drug Resistant Organisms: C-DIFF Date of last positivie culture/infection: unknown MDRO Source:: stool Past Surgical History: Adenoidectomy, Section, Cholecystectomy, Orthopedic Surgery, Tonsillectomy Additional Past Surgical History / Comment(s): 2 KNEE SCOPES, EAR TUBES, additional left knee surgery related to fracture, new port a cath jul 29, eye surgeries for diabetic retinopathy. Past Anesthesia/Blood Transfusion Reactions: Previous Problems w/ Anesthesia Additional Past Anesthesia/Blood Transfusion Reaction / Comment(s): confusion Past Psychological History: Anxiety, Depression Smoking Status: Current every day smoker Past Alcohol Use History: None Reported Past Drug Use History: Marijuana, Methamphetamine - Past Family History Father History Unknown: Yes Family Medical History: Unable to Obtain Mother History Unknown: Yes Family Medical History: No Reported History Grandfather History Unknown: Yes Family Medical History: Coronary Artery Disease (CAD) Additional Family Medical History / Comment(s): Diabetes mellitus type 2 Medications and Allergies Home Medications Medication Instructions Recorded Confirmed Type Docusate [Colace] 100 mg PO DAILY@0800 02/05/24 11/02/24 History Lidocaine 4% Patch 1 patch TOPICAL DAILY@0800 02/05/24 11/02/24 History Magnesium Hydroxide [Milk of 7,200 mg PO DAILY PRN 02/05/24 11/02/24 History Magnesia Concentrate] Ipratropium-Albuterol Nebulize 3 ml INHALATION RT-TID PRN each 02/14/24 11/02/24 Rx [Duoneb 0.5 mg-3 mg/3 ml Soln] polyethylene glycoL 3350 [Miralax] 17 gm PO AC-LUNCH #527 gm 02/14/24 11/02/24 Rx Acetaminophen [Tylenol] 650 mg PO Q4H PRN 02/18/24 11/02/24 History Biotene Dry Mouth/Throat 10 ml PO BID PRN 02/18/24 11/02/24 History Melatonin 1 mg PO HS tab 02/25/24 11/02/24 Rx Butalb/APAP/Caff 50-325-40Mg 1 tab PO Q4HR PRN 03/14/24 11/02/24 History [Fioricet 50-325-40] Darbepoetin Artur [Aranesp] 40 mcg SQ MO 03/14/24 11/02/24 History Loratadine [Claritin] 5 mg PO DAILY tab 03/30/24 11/02/24 Rx Aspirin 81 mg PO DAILY@0800 #30 tab 05/18/24 11/02/24 Rx Famotidine [Pepcid] 20 mg PO BID #60 tab 07/11/24 11/02/24 Rx Atorvastatin [Lipitor] 40 mg PO DIRECTED 08/14/24 11/02/24 History Divalproex ER [Depakote ER] 500 mg PO BID@0800,1700 08/14/24 11/02/24 History Levothyroxine Sodium [Synthroid] 175 mcg PO DAILY@0600 08/14/24 11/02/24 History Metoclopramide [Reglan] 5 mg PO AC-TID PRN 08/14/24 11/02/24 History Pantoprazole [Protonix] 40 mg PO DAILY@0600 08/14/24 11/02/24 History Sertraline [Zoloft] 200 mg PO DAILY@0800 08/14/24 11/02/24 History traZODone HCL [Desyrel] 50 mg PO HS 08/14/24 11/02/24 History ALPRAZolam [Xanax] 0.25 mg PO BID PRN 09/04/24 11/02/24 History Calcium Acetate [PhosLo] 2,001 mg PO TID-W/MEALS 09/04/24 11/02/24 History Calcium Acetate [PhosLo] 667 mg PO DAILY PRN 09/04/24 11/02/24 History cloNIDine HCL [Catapres] 0.3 mg PO TID 09/04/24 11/02/24 History Colchicine [Colcrys] 0.3 mg PO DAILY #15 each 09/23/24 11/02/24 Rx Isosorbide Mononitrate ER [Imdur] 120 mg PO DAILY #60 tab 09/23/24 11/02/24 Rx Labetalol [Trandate] 500 mg PO BID #150 tab 09/23/24 11/02/24 Rx NIFEdipine XL [Procardia XL] 60 mg PO BID #60 tab 09/23/24 11/02/24 Rx hydrALAZINE HCL [Apresoline] 100 mg PO TID #90 tab 09/23/24 11/02/24 Rx Triphrocaps 1mg Cap 1 cap PO DAILY 10/10/24 11/02/24 History Gabapentin [Neurontin] 600 mg PO TID 11/02/24 11/02/24 History Insulin Aspart (For Pump) [NovoLOG 0.01 unit SQ-PUMP CONTINUOUS 11/02/24 11/02/24 History (For Pump)] Ondansetron Odt [Zofran Odt] 4 mg PO Q8HR PRN 11/02/24 11/02/24 History oxyCODONE-APAP 10-325MG [Percocet 1 tab PO Q4HR PRN 11/02/24 11/02/24 History 10-325 mg] Allergies Allergy/AdvReac Type Severity Reaction Status Date / Time hydromorphone HCl Allergy Anaphylaxis Verified 10/21/24 11:45 [From Dilaudid] propoxyphene Allergy Rash/Hives Verified 10/21/24 11:45 [From Darvocet-N] tramadol Allergy Anaphylaxis Verified 10/21/24 11:45 ibuprofen [From Motrin] AdvReac unable to Verified 10/21/24 11:45 take due to kidney disease venom-honey bee AdvReac passes out Verified 10/21/24 11:45 [bee venom (honey bee)] Physical Exam Vitals: Vital Signs Temp Pulse Resp BP Pulse Ox FiO2 11/02/24 16:31 107 H 20 149/91 97 11/02/24 16:15 104 H 20 161/93 97 11/02/24 16:00 102 H 18 154/91 98 11/02/24 15:50 109 H 18 175/105 100 11/02/24 15:36 105 H 18 162/94 98 11/02/24 15:15 112 H 16 170/94 97 11/02/24 14:34 106 H 16 185/107 98 11/02/24 14:12 108 H 18 190/116 94 L 11/02/24 13:45 112 H 18 194/116 97 11/02/24 13:24 104 H 16 188/109 97 11/02/24 13:09 101 H 18 189/107 98 11/02/24 12:50 101 H 18 162/100 99 11/02/24 12:34 101 H 18 157/97 99 11/02/24 12:15 96 18 153/107 99 11/02/24 12:00 112 H 16 176/108 96 11/02/24 11:46 107 H 18 180/105 98 11/02/24 11:41 92 L 11/02/24 11:35 110 H 16 194/111 93 L 11/02/24 10:15 110 H 16 182/109 95 11/02/24 09:53 98.9 F 118 H 18 198/117 97 11/02/24 09:21 116 H 16 189/115 100 11/02/24 09:01 117 H 16 193/118 100 11/02/24 08:28 123 H 18 195/116 100 11/02/24 07:51 40 11/02/24 07:50 122 H 16 193/122 99 40 11/02/24 07:43 122 H 20 207/121 95 11/02/24 07:08 128 H 23 205/119 100 11/02/24 06:46 40 11/02/24 06:45 25 H 40 11/02/24 06:39 28 H 206/128 100 Intake and Output 11/02/24 11/02/2424 06:59 14:59 22:59 Intake Total 27.300 15.033 Balance 27.300 15.033 Intake: Intake, IV Titration 27.300 15.033 Amount Clevidipine Butyrate 25 0.433 mg In Empty Bag 1 bag @ 5 MG/HR 10 mls/hr IV .Q5H VY Rx#:[id number] Nitroglycerin-D5w Pmx 50 27.300 14.6 mg In Dextrose/Water 1 250ml.bag @ 5 MCG/MIN 1.5 mls/hr IV .Q24H STA Rx#: [id number] Other: Weight 61.69 kg GENERAL EXAM: Alert, 34-year-old female, resting in bed, patient is currently on 2 L of oxygen by nasal cannula HEAD: Normocephalic. EYES: Normal reaction of pupils, equal size. NOSE: Clear with pink turbinates. Recent epistaxis. THROAT: No erythema or exudates. NECK: No masses, no JVD. CHEST: No chest wall deformity. Dialysis catheter on the right LUNGS: Fine crackles at the bases. No rhonchi no wheezes. CVS: S1 and S2 normal with no audible murmur, regular rhythm. ABDOMEN: No hepatosplenomegaly, normal bowel sounds, no guarding or rigidity. SKIN: No rashes CENTRAL NERVOUS SYSTEM: No focal deficits, tone is normal in all 4 extremities. EXTREMITIES: There is no peripheral edema. No clubbing, no cyanosis. Peripheral pulses are intact. Results - Laboratory Findings CBC and BMP: 11/02/24 06:43 11/02/24 15:59 PT/INR, D-dimer PT 11.2 sec (10.0-12.5) 11/02/24 06:43 INR 1.0 (<1.2) 11/02/24 06:43 Abnormal lab findings: Abnormal Labs 11/02/24 11/02/24 11/02/24 06:43 06:43 06:43 WBC 22.0 H RBC 2.66 L Hgb 8.6 L Hct 26.2 L RDW 16.8 H Neutrophils # 17.4 H Eosinophils # 2.1 H Sodium 135 L Chloride 92 L BUN 70 H Creatinine 6.25 H Glucose 119 H POC Glucose (mg/dL) Calcium 10.5 H Iron Ferritin AST 131 H ALT 363 H Alkaline Phosphatase 365 H Troponin I 0.074 H* 11/02/24 11/02/24 11/02/24 10:55 10:55 11:57 WBC RBC Hgb Hct RDW Neutrophils # Eosinophils # Sodium Chloride BUN Creatinine Glucose POC Glucose (mg/dL) 140 H Calcium Iron 37 L Ferritin 777.0 H AST ALT Alkaline Phosphatase Troponin I 0.090 H* 11/02/24 11/02/24 11/02/24 15:59 15:59 17:03 WBC RBC Hgb Hct RDW Neutrophils # Eosinophils # Sodium 130 L Chloride 93 L BUN 28 H Creatinine 3.41 H Glucose 408 H POC Glucose (mg/dL) 465 H Calcium Iron Ferritin AST 90 H ALT 316 H Alkaline Phosphatase 330 H Troponin I 0.076 H* Assessment and Plan Plan: Acute hypoxemic respiratory failure secondary to an acute episode of pulmonary edema and fluid volume overload, initially placed on BiPAP and subsequently the patient underwent emergent hemodialysis and the patient respiratory status improved and oxygenation has also improved and the patient is currently on 2 L of O2 nasal cannula. Acute shortness of breath, improved with hemodialysis Acute hypertensive emergency, currently on Cleviprex drip and the patient is also on a combination of Procardia, clonidine, hydralazine and labetolol Episodic chest pain, normal coronaries on previous cardiac cath, positive trop leak related to hypertension and myocardial type II ischemia End-stage renal disease requiring hemodialysis 4 times per week Diabetes mellitus, insulin-dependent Anemia of chronic disease History of CVA/TIA History of optic neuritis Hypothyroidism History of depression Plan Hemodialysis been completed and patient's respiratory status is stable Wean down FiO2 as tolerated to maintain saturation above 90% Wean off Cleviprex drip Continue a combination of hydralazine, labetalol and clonidine and Procardia for blood pressure control Nephrology on the case regarding hemodialysis Start the patient on Levemir insulin and monitor the blood sugars ICU if the blood pressure continues to be elevated and the patient continues to require Cleviprex drip. Will continue to follow Resume home medications
[2024-11-02 20:35] LABS: Glucose,Whole Blood 519 mg/dL (70-110)
[2024-11-02] MEDS: INSULIN ASPART (NovoLOG) 100 UNIT/ML VIAL SQ STA (20:43)
[2024-11-02] MEDS: ATORVASTATIN 40 MG TAB PO SCH (20:43)
[2024-11-02] MEDS: INSULIN DETEMIR (LEVEMIR) 100 UNIT/ML SYR SQ SCH (20:50)
[2024-11-02] MEDS: traZODone HCL 50 MG TAB PO SCH (20:52)
[2024-11-02] MEDS: MELATONIN 1 MG TAB PO SCH (20:52)
[2024-11-02 21:52] LABS: Glucose,Whole Blood 489 mg/dL (70-110)
[2024-11-03 05:07] LABS: Glucose,Whole Blood 136 mg/dL (70-110)
[2024-11-03] MEDS: LEVOTHYROXINE 88 MCG TAB PO SCH (06:02)
[2024-11-03] MEDS: PANTOPRAZOLE 40 MG TABLET PO SCH (06:03)
[2024-11-03 07:31] LABS: Anisocytosis Slight; Basophils # (A) 0.1 k/uL (0-0.2); Basophils % (A) 1 %; Eosinophils # (A) 1.2 k/uL (0-0.7); Eosinophils % (A) 10 %; HCT 27.2 % (34.0-46.0); HGB 8.6 gm/dL (11.4-16.0); Lymphocytes # (A) 1.3 k/uL (1.0-4.8); Lymphocytes % (A) 11 %; MCH 31.8 pg (25.0-35.0); MCHC 31.5 g/dL (31.0-37.0); MCV 100.8 fL (80.0-100.0); Macrocytosis Slight; Monocytes # (A) 0.4 k/uL (0-1.0); Monocytes % (A) 4 %; Neutrophils # (A) 8.8 k/uL (1.3-7.7); Neutrophils % (A) 73 %; Platelet Count 429 k/uL (150-450); RBC 2.69 m/uL (3.80-5.40); RDW 17.1 % (11.5-15.5); WBC 12.1 k/uL (3.8-10.6)
[2024-11-03 07:33] LABS: African American GFR (CKD) 13 (>60 ml/min/1.73 sqM); Anion Gap 10 mmol/L; Blood Urea Nitrogen 46 mg/dL (7-17); Calcium 9.7 mg/dL (8.4-10.2); Carbon Dioxide 30 mmol/L (22-30); Chloride 92 mmol/L (98-107); Glucose 120 mg/dL (74-99); Non-African American GFR(CKD) 12 (>60 ml/min/1.73 sqM); Potassium 4.9 mmol/L (3.5-5.1); Sodium 132 mmol/L (137-145)
[2024-11-03 08:00] LABS: Glucose,Whole Blood 170 mg/dL (70-110)
--- NOTE | 2024-11-03 08:26 | XR ---
EXAMINATION TYPE: XR chest 1V portable DATE OF EXAM: 11/03/2024 6:29 AM COMPARISON: 11/02/2024 CLINICAL INDICATION: Female, 34 years old with history of pulmonary edema, TECHNIQUE: Single frontal view of the chest is obtained. FINDINGS: Pulmonary venous congestion much improved from prior study. Interstitial edema has resolved. Large serge re central venous line. IMPRESSION: Significant interval improvement appreciated. [facility], , 11/03/2024 8:23 AM
[2024-11-03] MEDS: INSULIN DETEMIR (LEVEMIR) 100 UNIT/ML SYR SQ SCH (11:40)
[2024-11-03 12:27] LABS: Glucose,Whole Blood 371 mg/dL (70-110)
--- NOTE | 2024-11-03 12:27 | P.PN ---
Subjective Patient is seen in follow-up for end-stage renal disease. She is maintained on hemodialysis on Wednesday schedule. Tolerated 4 L ultrafiltration yesterday. Currently undergoing an extra treatment of dialysis. Now on nasal cannula. Feels better today. Vital signs are stable. General: No acute distress. HEENT: Head exam is unremarkable. LUNGS: No audible rhonchi or wheezes. HEART: Rate and Rhythm are regular. ABDOMEN: Nontender. EXTREMITITES: No edema. Objective - Vital Signs Vital signs: Vital Signs Temp 98.2 F 11/03/24 11:44 Pulse 90 11/03/24 11:13 Resp 17 11/03/24 11:13 BP 126/78 11/03/24 11:13 Pulse Ox 100 11/03/24 11:13 FiO2 40 11/02/24 07:51 Intake & Output 11/02/24 11/03/24 11/03/24 18:59 06:59 18:59 Intake Total 54.933 517.300 Output Total 8500 Balance 54.933 -7982.700 Intake: Intake, IV Titration 54.933 17.300 Amount Clevidipine Butyrate 25 13.033 17.300 mg In Empty Bag 1 bag @ 5 MG/HR 10 mls/hr IV .Q5H VY Rx#:[id number] Nitroglycerin-D5w Pmx 50 41.900 mg In Dextrose/Water 1 250ml.bag @ 5 MCG/MIN 1.5 mls/hr IV .Q24H STA Rx#: [id number] Hemodialysis 500 Output: Hemodialysis 4500 Hemodialysis Net Amount 4000 - Labs CBC & Chem 7: 11/03/24 06:31 11/03/24 06:31 Labs: Abnormal Lab Results - Last 24 Hours (Table) 11/02/24 11/02/24 11/02/24 Range/Units 10:55 15:59 15:59 WBC (3.8-10.6) k/uL RBC (3.80-5.40) m/uL Hgb (11.4-16.0) gm/dL Hct (34.0-46.0) % MCV (80.0-100.0) fL RDW (11.5-15.5) % Neutrophils # (1.3-7.7) k/uL Eosinophils # (0-0.7) k/uL Sodium 130 L (137-145) mmol/L Chloride 93 L (98-107) mmol/L BUN 28 H (7-17) mg/dL Creatinine 3.41 H (0.52-1.04) mg/dL Glucose 408 H (74-99) mg/dL POC Glucose (mg/dL) (70-110) mg/dL Iron 37 L (50-170) UG/DL Ferritin 777.0 H (10.0-291.0) ng/mL AST 90 H (14-36) U/L ALT 316 H (4-34) U/L Alkaline Phosphatase 330 H (38-126) U/L Troponin I 0.076 H* (0.000-0.034) ng/mL 11/02/24 11/02/24 11/02/24 Range/Units 17:03 20:26 21:50 WBC (3.8-10.6) k/uL RBC (3.80-5.40) m/uL Hgb (11.4-16.0) gm/dL Hct (34.0-46.0) % MCV (80.0-100.0) fL RDW (11.5-15.5) % Neutrophils # (1.3-7.7) k/uL Eosinophils # (0-0.7) k/uL Sodium (137-145) mmol/L Chloride (98-107) mmol/L BUN (7-17) mg/dL Creatinine (0.52-1.04) mg/dL Glucose (74-99) mg/dL POC Glucose (mg/dL) 465 H 519 H* 489 H (70-110) mg/dL Iron (50-170) UG/DL Ferritin (10.0-291.0) ng/mL AST (14-36) U/L ALT (4-34) U/L Alkaline Phosphatase (38-126) U/L Troponin I (0.000-0.034) ng/mL 11/03/24 11/03/24 11/03/24 Range/Units 05:06 06:31 06:31 WBC 12.1 H (3.8-10.6) k/uL RBC 2.69 L (3.80-5.40) m/uL Hgb 8.6 L (11.4-16.0) gm/dL Hct 27.2 L (34.0-46.0) % MCV 100.8 H (80.0-100.0) fL RDW 17.1 H (11.5-15.5) % Neutrophils # 8.8 H (1.3-7.7) k/uL Eosinophils # 1.2 H (0-0.7) k/uL Sodium 132 L (137-145) mmol/L Chloride 92 L (98-107) mmol/L BUN 46 H (7-17) mg/dL Creatinine 4.63 H (0.52-1.04) mg/dL Glucose 120 H (74-99) mg/dL POC Glucose (mg/dL) 136 H (70-110) mg/dL Iron (50-170) UG/DL Ferritin (10.0-291.0) ng/mL AST (14-36) U/L ALT (4-34) U/L Alkaline Phosphatase (38-126) U/L Troponin I (0.000-0.034) ng/mL 11/03/24 Range/Units 07:59 WBC (3.8-10.6) k/uL RBC (3.80-5.40) m/uL Hgb (11.4-16.0) gm/dL Hct (34.0-46.0) % MCV (80.0-100.0) fL RDW (11.5-15.5) % Neutrophils # (1.3-7.7) k/uL Eosinophils # (0-0.7) k/uL Sodium (137-145) mmol/L Chloride (98-107) mmol/L BUN (7-17) mg/dL Creatinine (0.52-1.04) mg/dL Glucose (74-99) mg/dL POC Glucose (mg/dL) 170 H (70-110) mg/dL Iron (50-170) UG/DL Ferritin (10.0-291.0) ng/mL AST (14-36) U/L ALT (4-34) U/L Alkaline Phosphatase (38-126) U/L Troponin I (0.000-0.034) ng/mL Assessment and Plan Plan: Assessment: 1. End-stage renal disease maintained on hemodialysis on Wednesday schedule. Has permacath. Has a maturing left upper extremity AV fistula. 2. Acute hypoxic respiratory failure. 3. Volume overload. Improved with ultrafiltration. 4. Anemia of chronic kidney disease. Iron deficiency noted. 5. Hypertensive emergency. Improved. 6. Chronic kidney disease mineral bone disease. Calcium level now normal. Phosphorus level 2.6. Plan: Currently seen while undergoing hemodialysis. Another treatment tomorrow per her outpatient schedule. Add IV iron. Decrease dose of gabapentin. Add fluid restriction.
[2024-11-03] MEDS: LABETALOL 200 MG TAB PO SCH (12:58)
[2024-11-03] MEDS: GABAPENTIN 100 MG CAP PO SCH (12:59)
[2024-11-03] MEDS: FAMOTIDINE 20 MG TAB PO SCH (12:59)
[2024-11-03] MEDS: SERTRALINE 100 MG TAB PO SCH (13:00)
[2024-11-03] MEDS: ISOSORBIDE MONONITRATE ER 60 MG TAB.ER.24H PO SCH (13:14)
[2024-11-03] MEDS: ASPIRIN 81 MG PO SCH (13:14)
[2024-11-03] MEDS: DOCUSATE 100 MG CAP PO SCH (13:14)
[2024-11-03 13:57] LABS: ALT 366 U/L (4-34); AST 61 U/L (14-36); Albumin 4.1 g/dL (3.5-5.0); Albumin/Globulin Ratio 1.5; Alkaline Phosphatase 292 U/L (38-126); Globulin 2.8 g/dL; Total Bilirubin 0.8 mg/dL (0.2-1.3); Total Protein 6.9 g/dL (6.3-8.2)
--- NOTE | 2024-11-03 14:07 | P.PN ---
Subjective Progress Note Date: 11/03/24 Patient is a 34-year-old female with past medical history of ESRD on hemodialysis ([facility]), hypertension, history of CVA in November 2023, insulin- dependent diabetes mellitus, seizure disorder, hypothyroidism, anxiety, GERD presents to the emergency department for hypertension, chest pain, and dyspnea. She states that she was sent here from dialysis due to her systolic blood pressure being close to 250. She notes that the chest pain feels like a squeezing/tight pressure across the entire front of her chest which does radiate to her back. It worsens with deep inspiration. She rates it as a 6/10 pain. She notes that she usually feels this chest pain when she is volume overloaded and that it improves with dialysis. She endorses sleeping in a recliner with 1 pillow since April. She currently endorses a squeezing global headache noting that she feels pressure behind her eyes. She states that she has felt this pain before and she usually just sleeps it off or takes Tylenol for it. She denies vision changes or ringing in the ears. She also notes that she has had intermittent bloody noses for about 3 days with about 20 episodes per day lasting anywhere from 30 seconds to 5 minutes. She states compliance with her medications. She currently endorses chest pain, dyspnea, nausea, headache, and epistaxis. Denies fever, chills, abdominal pain, vomiting, cough. Initial EKG independently interpreted: Sinus tachycardia no significant ST-T wave changes Initial chest x-ray independently interpreted: Bilateral interstitial opacities Initial labs: WBC 22, hemoglobin 8.6, hematocrit 26.2, platelets 447, PT 11.2, INR 1, APTT 26.3, sodium 135, potassium 5, chloride 92, CO2 24, BUN 70, cre atinine 6.25, glucose 119, lactic acid 1.5, calcium 10.5, magnesium 1.6, AST 121, ALT 363, alkaline phosphatase 365, troponin X1 0.074, BNP 38,800. Initial vitals: BP 206/128, RI 128, RR 28, 100% oxygen saturation on CPAP. 11/03. Patient seen and examined laying in bed. She endorses unchanged chest pain and headache. Denies fever, dyspnea, nausea, and abdominal pain. Reports no epistaxis today. Labs today: WBC 12.1, hemoglobin 8.6, platelets 429, sodium 132, potassium 4.9, chloride 92, BUN 46, creatinine 4.63, glucose 120. Pending liver enzymes. Right upper quadrant ultrasound yesterday: Relatively normal sonographic appearance of the liver no dilated ducts cystic structures or deedee s, increased echotexture of the kidney with atrophy changes currently from medical renal disease. Chest x-ray independently interpreted, shows bilateral interstitial opacities Pertinent positives and negatives discussed above, a complete review of systems was performed and all the other systems were negative. 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 Cranial nerves II to XII grossly intact. Psych: Appropriate affect and mood Assessment and Plan: Patient is a 34-year-old female with past medical history of ESRD on h emodialysis ([facility]), hypertension, history of CVA in November 2023, insulin- dependent diabetes mellitus, seizure disorder, hypothyroidism, anxiety, GERD admitted for hypertensive emergency. Active #. Acute hypoxic respiratory failure, improved #. Acute pulmonary edema #. Hypervolemia Wean oxygen supplementation to room air as tolerated Nephrology note reviewed, add IV iron, decrease dose of gabapentin, hemodialysis today and tomorrow Home antihypertensives: Clonidine 0.3 mg PO 3 times daily, hydralazine 100 mg PO 3 times daily, Imdur 120 mg PO daily, labetalol 500 mg PO twice daily, nifedipine 60 mg PO twice daily #. Transaminitis, possibly congestive hepatopathy Monitor CMP #. Acute chest pain, likely due to hypervolemia #. NSTEMI, likely type II Continuous telemetry #. Leukocytosis, likely reactive Monitor CBC #. Tension headache Continue Tylenol 650 mg PO every 6 hours as needed Resolved #. Epistaxis, likely anterior Chronic #. ESRD on hemodialysis ([facility]) Nephrology consulted for management of dialysis #. Insulin-dependent diabetes mellitus Insulin sliding scale while inpatient Insulin pump off Accu-Cheks ACHS Hypoglycemic precautions #. History of CVA Aspirin 81 mg PO daily #. Hypertension #. Hypothyroidism #. Seizure disorder #. Anxiety #. Gout-hold colchicine #. GERD Continue home medications F: None E: Replete if required N: Renal diet A: Ambulatory DVT prophylaxis: Subcutaneous heparin every 8 hours GI prophylaxis: Protonix 40 mg PO daily Code status: Full code Anticipated discharge place: Home Possible discharge tomorrow I have seen and evaluated the patient today. Discussed with the resident and agree with the residents finding and plan as documented in the resident's note. Changes highlighted in blue font. Objective - Vital Signs Vital signs: Vital Signs Temp 98.0 F 11/03/24 00:00 Pulse 92 11/03/24 04:00 Resp 17 11/03/24 04:00 BP 119/83 11/03/24 05:32 Pulse Ox 100 11/03/24 04:00 FiO2 40 11/02/24 07:51 Intake & Output 11/02/24 11/03/24 11/03/24 18:59 06:59 18:59 Intake Total 54.933 517.300 Output Total 8500 Balance 54.933 -7982.700 Intake: Intake, IV Titration 54.933 17.300 Amount Clevidipine Butyrate 25 13.033 17.300 mg In Empty Bag 1 bag @ 5 MG/HR 10 mls/hr IV .Q5H VY Rx#:[id number] Nitroglycerin-D5w Pmx 50 41.900 mg In Dextrose/Water 1 250ml.bag @ 5 MCG/MIN 1.5 mls/hr IV .Q24H STA Rx#: [id number] Hemodialysis 500 Output: Hemodialysis 4500 Hemodialysis Net Amount 4000 - Labs CBC & Chem 7: 11/03/24 06:31 11/03/24 06:31 Labs: Abnormal Lab Results - Last 24 Hours (Table) 11/02/24 11/02/24 11/02/24 Range/Units 06:43 06:43 10:55 WBC (3.8-10.6) k/uL RBC (3.80-5.40) m/uL Hgb (11.4-16.0) gm/dL Hct (34.0-46.0) % MCV (80.0-100.0) fL RDW (11.5-15.5) % Neutrophils # (1.3-7.7) k/uL Eosinophils # (0-0.7) k/uL Sodium 135 L (137-145) mmol/L Chloride 92 L (98-107) mmol/L BUN 70 H (7-17) mg/dL Creatinine 6.25 H (0.52-1.04) mg/dL Glucose 119 H (74-99) mg/dL POC Glucose (mg/dL) (70-110) mg/dL Calcium 10.5 H (8.4-10.2) mg/dL Iron 37 L (50-170) UG/DL Ferritin 777.0 H (10.0-291.0) ng/mL AST 131 H (14-36) U/L ALT 363 H (4-34) U/L Alkaline Phosphatase 365 H (38-126) U/L Troponin I 0.074 H* (0.000-0.034) ng/mL 11/02/24 11/02/24 11/02/24 Range/Units 10:55 11:57 15:59 WBC (3.8-10.6) k/uL RBC (3.80-5.40) m/uL Hgb (11.4-16.0) gm/dL Hct (34.0-46.0) % MCV (80.0-100.0) fL RDW (11.5-15.5) % Neutrophils # (1.3-7.7) k/uL Eosinophils # (0-0.7) k/uL Sodium (137-145) mmol/L Chloride (98-107) mmol/L BUN (7-17) mg/dL Creatinine (0.52-1.04) mg/dL Glucose (74-99) mg/dL POC Glucose (mg/dL) 140 H (70-110) mg/dL Calcium (8.4-10.2) mg/dL Iron (50-170) UG/DL Ferritin (10.0-291.0) ng/mL AST (14-36) U/L ALT (4-34) U/L Alkaline Phosphatase (38-126) U/L Troponin I 0.090 H* 0.076 H* (0.000-0.034) ng/mL 11/02/24 11/02/24 11/02/24 Range/Units 15:59 17:03 20:26 WBC (3.8-10.6) k/uL RBC (3.80-5.40) m/uL Hgb (11.4-16.0) gm/dL Hct (34.0-46.0) % MCV (80.0-100.0) fL RDW (11.5-15.5) % Neutrophils # (1.3-7.7) k/uL Eosinophils # (0-0.7) k/uL Sodium 130 L (137-145) mmol/L Chloride 93 L (98-107) mmol/L BUN 28 H (7-17) mg/dL Creatinine 3.41 H (0.52-1.04) mg/dL Glucose 408 H (74-99) mg/dL POC Glucose (mg/dL) 465 H 519 H* (70-110) mg/dL Calcium (8.4-10.2) mg/dL Iron (50-170) UG/DL Ferritin (10.0-291.0) ng/mL AST 90 H (14-36) U/L ALT 316 H (4-34) U/L Alkaline Phosphatase 330 H (38-126) U/L Troponin I (0.000-0.034) ng/mL 11/02/24 11/03/24 11/03/24 Range/Units 21:50 05:06 06:31 WBC 12.1 H (3.8-10.6) k/uL RBC 2.69 L (3.80-5.40) m/uL Hgb 8.6 L (11.4-16.0) gm/dL Hct 27.2 L (34.0-46.0) % MCV 100.8 H (80.0-100.0) fL RDW 17.1 H (11.5-15.5) % Neutrophils # 8.8 H (1.3-7.7) k/uL Eosinophils # 1.2 H (0-0.7) k/uL Sodium (137-145) mmol/L Chloride (98-107) mmol/L BUN (7-17) mg/dL Creatinine (0.52-1.04) mg/dL Glucose (74-99) mg/dL POC Glucose (mg/dL) 489 H 136 H (70-110) mg/dL Calcium (8.4-10.2) mg/dL Iron (50-170) UG/DL Ferritin (10.0-291.0) ng/mL AST (14-36) U/L ALT (4-34) U/L Alkaline Phosphatase (38-126) U/L Troponin I (0.000-0.034) ng/mL 11/03/24 Range/Units 06:31 WBC (3.8-10.6) k/uL RBC (3.80-5.40) m/uL Hgb (11.4-16.0) gm/dL Hct (34.0-46.0) % MCV (80.0-100.0) fL RDW (11.5-15.5) % Neutrophils # (1.3-7.7) k/uL Eosinophils # (0-0.7) k/uL Sodium 132 L (137-145) mmol/L Chloride 92 L (98-107) mmol/L BUN 46 H (7-17) mg/dL Creatinine 4.63 H (0.52-1.04) mg/dL Glucose 120 H (74-99) mg/dL POC Glucose (mg/dL) (70-110) mg/dL Calcium (8.4-10.2) mg/dL Iron (50-170) UG/DL Ferritin (10.0-291.0) ng/mL AST (14-36) U/L ALT (4-34) U/L Alkaline Phosphatase (38-126) U/L Troponin I (0.000-0.034) ng/mL
--- NOTE | 2024-11-03 15:36 | P.PN ---
Subjective Progress Note Date: 11/03/24 This is a 34-year-old female patient came into the emergency department with acute respiratory distress. The patient is known to us and the patient has end- stage renal disease on hemodialysis 4 times a week, Wednesday, Wednesday, and Wednesday. The patient was found to be having significant shortness of breath and hemodialysis and the patient was diverted to the hospital. Initially she was placed on a BiPAP and she was noted to be and pulmonary edema/fluid overload. At the same time, the patient was quite hypertensive and her initial blood pressure was 206/128. A stat hemodialysis was done in the emergency department. Subsequently, the patient respiratory is improved and she was weaned off the BiPAP and the patient is currently on 2 L of O2 nasal cannula with a pulse ox of 97%. Blood pressure remains elevated. Recommended Cleviprex drip that was started in the emergency. At the same time, the patient on clonidine 0.3 mg p.o. 3 times daily, hydralazine 100 mg p.o. 3 times daily, labetalol 500 mg p.o. twice daily, and Procardia XL 60 mg p.o. twice daily. Clevidipine drip is running at 1 mg an hour. No chest pain. She is lethargic. There is no focal neurological deficits. The WBC count is at 22 with a hemoglobin 8.6 and a platelet count of 447. Sodium is at 130, potassium is 4.5, BUN 28 with a creatinine of 3.4 and a bicarb is at 26. Blood sugars have been fluctuating between 140 and 465. LFTs show an AST of 90, ALT of 316, alkaline phosphatase of 330. Troponins are abnormal with levels of 0.07, 0.09 and 0.07 respectively and the proBNP level is 13,800. Protein and albumin are both within normal limits. Ultrasound of the abdomen was done and showed no dilat ation of the hepatic ducts and the common bile duct was also within normal limits. The gallbladder was surgically absent. No fever. No chest pain. No other complaints otherwise for now. The patient makes no urine. In terms of her blood sugar control, the patient has been maintained on insulin pump on outpatient basis. On 11/03/2024, the patient is being seen for a follow-up. The patient is undergoing hemodialysis with a goal of ultrafiltration of around 3 L. Noted her blood pressure is stable and the patient was taken off the Cleviprex drip. The patient is currently on clonidine 0.3 mg p.o. 3 times daily, Imdur 120 mg p.o. daily, hydralazine 100 mg p.o. 3 times daily, labetalol 500 mg p.o. twice daily and Procardia 60 mg p.o. twice a day. No headaches. No chest pain. No altered mentation. Underwent hemodialysis and another session of hemodialysis to be done today. A follow-up chest x-ray was done today and shows improvement in volume status and there is significant improvement in the pulmonary vascular congestion. Oxygenation is also improved and the patient is currently off the BiPAP, he is only on 2 L of oxygen by nasal cannula with a pulse ox of 97%. No altered mentation. No respiratory distress. Objective - Vital Signs Vital signs: Vital Signs Temp 98.5 F 11/03/24 08:05 Pulse 89 11/03/24 08:05 Resp 17 11/03/24 09:45 BP 122/86 11/03/24 09:45 Pulse Ox 97 11/03/24 09:45 FiO2 40 11/02/24 07:51 Intake & Output 11/02/24 11/03/24 11/03/24 18:59 06:59 18:59 Intake Total 54.933 517.300 Output Total 8500 Balance 54.933 -7982.700 Intake: Intake, IV Titration 54.933 17.300 Amount Clevidipine Butyrate 25 13.033 17.300 mg In Empty Bag 1 bag @ 5 MG/HR 10 mls/hr IV .Q5H VY Rx#:[id number] Nitroglycerin-D5w Pmx 50 41.900 mg In Dextrose/Water 1 250ml.bag @ 5 MCG/MIN 1.5 mls/hr IV .Q24H STA Rx#: [id number] Hemodialysis 500 Output: Hemodialysis 4500 Hemodialysis Net Amount 4000 - Exam GENERAL EXAM: Alert, 34-year-old female, resting in bed, patient is currently on 2 L of oxygen by nasal cannula HEAD: Normocephalic. EYES: Normal reaction of pupils, equal size. NOSE: Clear with pink turbinates. Recent epistaxis. THROAT: No erythema or exudates. NECK: No masses, no JVD. CHEST: No chest wall deformity. Dialysis catheter on the right LUNGS: Fine crackles at the bases. No rhonchi no wheezes. CVS: S1 and S2 normal with no audible murmur, regular rhythm. ABDOMEN: No hepatosplenomegaly, normal bowel sounds, no guarding or rigidity. SKIN: No rashes CENTRAL NERVOUS SYSTEM: No focal deficits, tone is normal in all 4 extremities. EXTREMITIES: There is no peripheral edema. No clubbing, no cyanosis. Jessica pheral pulses are intact. - Labs CBC & Chem 7: 11/03/24 06:31 11/03/24 06:31 Labs: Abnormal Lab Results - Last 24 Hours (Table) 11/02/24 11/02/24 11/02/24 Range/Units 10:55 10:55 11:57 WBC (3.8-10.6) k/uL RBC (3.80-5.40) m/uL Hgb (11.4-16.0) gm/dL Hct (34.0-46.0) % MCV (80.0-100.0) fL RDW (11.5-15.5) % Neutrophils # (1.3-7.7) k/uL Eosinophils # (0-0.7) k/uL Sodium (137-145) mmol/L Chloride (98-107) mmol/L BUN (7-17) mg/dL Creatinine (0.52-1.04) mg/dL Glucose (74-99) mg/dL POC Glucose (mg/dL) 140 H (70-110) mg/dL Iron 37 L (50-170) UG/DL Ferritin 777.0 H (10.0-291.0) ng/mL AST (14-36) U/L ALT (4-34) U/L Alkaline Phosphatase (38-126) U/L Troponin I 0.090 H* (0.000-0.034) ng/mL 11/02/24 11/02/24 11/02/24 Range/Units 15:59 15:59 17:03 WBC (3.8-10.6) k/uL RBC (3.80-5.40) m/uL Hgb (11.4-16.0) gm/dL Hct (34.0-46.0) % MCV (80.0-100.0) fL RDW (11.5-15.5) % Neutrophils # (1.3-7.7) k/uL Eosinophils # (0-0.7) k/uL Sodium 130 L (137-145) mmol/L Chloride 93 L (98-107) mmol/L BUN 28 H (7-17) mg/dL Creatinine 3.41 H (0.52-1.04) mg/dL Glucose 408 H (74-99) mg/dL POC Glucose (mg/dL) 465 H (70-110) mg/dL Iron (50-170) UG/DL Ferritin (10.0-291.0) ng/mL AST 90 H (14-36) U/L ALT 316 H (4-34) U/L Alkaline Phosphatase 330 H (38-126) U/L Troponin I 0.076 H* (0.000-0.034) ng/mL 11/02/24 11/02/24 11/03/24 Range/Units 20:26 21:50 05:06 WBC (3.8-10.6) k/uL RBC (3.80-5.40) m/uL Hgb (11.4-16.0) gm/dL Hct (34.0-46.0) % MCV (80.0-100.0) fL RDW (11.5-15.5) % Neutrophils # (1.3-7.7) k/uL Eosinophils # (0-0.7) k/uL Sodium (137-145) mmol/L Chloride (98-107) mmol/L BUN (7-17) mg/dL Creatinine (0.52-1.04) mg/dL Glucose (74-99) mg/dL POC Glucose (mg/dL) 519 H* 489 H 136 H (70-110) mg/dL Iron (50-170) UG/DL Ferritin (10.0-291.0) ng/mL AST (14-36) U/L ALT (4-34) U/L Alkaline Phosphatase (38-126) U/L Troponin I (0.000-0.034) ng/mL 11/03/24 11/03/24 11/03/24 Range/Units 06:31 06:31 07:59 WBC 12.1 H (3.8-10.6) k/uL RBC 2.69 L (3.80-5.40) m/uL Hgb 8.6 L (11.4-16.0) gm/dL Hct 27.2 L (34.0-46.0) % MCV 100.8 H (80.0-100.0) fL RDW 17.1 H (11.5-15.5) % Neutrophils # 8.8 H (1.3-7.7) k/uL Eosinophils # 1.2 H (0-0.7) k/uL Sodium 132 L (137-145) mmol/L Chloride 92 L (98-107) mmol/L BUN 46 H (7-17) mg/dL Creatinine 4.63 H (0.52-1.04) mg/dL Glucose 120 H (74-99) mg/dL POC Glucose (mg/dL) 170 H (70-110) mg/dL Iron (50-170) UG/DL Ferritin (10.0-291.0) ng/mL AST (14-36) U/L ALT (4-34) U/L Alkaline Phosphatase (38-126) U/L Troponin I (0.000-0.034) ng/mL Assessment and Plan Plan: Acute hypoxemic respiratory failure secondary to an acute episode of pulmonary edema and fluid volume overload, initially placed on BiPAP and subsequently the patient underwent emergent hemodialysis and the patient respiratory status improved and oxygenation has also improved and the patient is currently on 2 L of O2 nasal cannula. Chest x-ray shows improvement in the pulm vascular congestion and the patient is having another session of hemodialysis today. Acute shortness of breath, improved with hemodialysis Acute hypertensive emergency, currently on Imdur, Procardia, clonidine, hydralazine and labetolol, BP is controlled and the patient is currently off to Cleviprex drip Episodic chest pain, normal coronaries on previous cardiac cath, positive trop leak related to hypertension and myocardial type II ischemia End-stage renal disease requiring hemodialysis 4 times per week Diabetes mellitus, insulin-dependent Anemia of chronic disease History of CVA/TIA History of optic neuritis Hypothyroidism History of depression Plan Hemodialysis been completed and patient's respiratory status is stable Wean down FiO2 as tolerated to maintain saturation above 90% Patient is off the Cleviprex drip Continue a combination of Imdur, hydralazine, labetalol and clonidine and Procardia for blood pressure control, BP is under adequate control for now Nephrology on the case regarding hemodialysis Start the patient on Levemir insulin and monitor the blood sugars, currently on 10 units twice daily and sliding scale coverage. Proceed with another session of hemodialysis today No need for ICU stay Will continue to follow Resume home medications
[2024-11-03 16:37] LABS: Glucose,Whole Blood >600 mg/dL (70-110)
[2024-11-03 16:40] LABS: Glucose,Whole Blood >600 mg/dL (70-110)
[2024-11-03 18:07] LABS: Glucose,Whole Blood >600 mg/dL (70-110)
[2024-11-03] MEDS: INSULIN ASPART (NovoLOG) 100 UNIT/ML VIAL SQ ONE (18:23)
[2024-11-03 19:21] LABS: Glucose,Whole Blood 530 mg/dL (70-110)
[2024-11-03 22:14] LABS: Glucose,Whole Blood 116 mg/dL (70-110)
[2024-11-03] MEDS: ALPRAZolam 0.25 MG TAB PO PRN (23:17)
[2024-11-03 23:22] LABS: Glucose,Whole Blood 42 mg/dL (70-110)
[2024-11-03] MEDS: DEXTROSE 50% SYRINGE 50 ML IVP PRN (23:22)
[2024-11-03] MEDS: ONDANSETRON ODT 4 MG TAB PO PRN (23:31)
[2024-11-03 23:43] LABS: Glucose,Whole Blood 142 mg/dL (70-110)
[2024-11-04 00:15] LABS: Glucose,Whole Blood 92 mg/dL (70-110)
[2024-11-04] MEDS: MORPHINE SULFATE 2 MG/ML SYRINGE IVP STA (00:25)
[2024-11-04 00:49] LABS: Glucose,Whole Blood 78 mg/dL (70-110)
[2024-11-04 01:15] LABS: Glucose,Whole Blood 80 mg/dL (70-110)
[2024-11-04 01:48] LABS: Glucose,Whole Blood 97 mg/dL (70-110)
[2024-11-04] MEDS: ACETAMINOPHEN TAB 325 MG TAB PO PRN (02:36)
[2024-11-04 03:29] LABS: Glucose,Whole Blood 145 mg/dL (70-110)
[2024-11-04 06:08] LABS: Glucose,Whole Blood 311 mg/dL (70-110)
[2024-11-04] MEDS: IPRATROPIUM-ALBUTEROL 3 ML NEB INHALATION PRN (07:33)
[2024-11-04 08:01] LABS: Glucose,Whole Blood 386 mg/dL (70-110)
--- NOTE | 2024-11-04 10:44 | P.PN ---
Subjective Patient is seen in follow-up for end-stage renal disease. She is maintained on hemodialysis on Wednesday schedule. Tolerated 3 L ultrafiltration yesterday. Tolerating dialysis well. On nasal cannula. Complains of numbness in her left arm. Vital signs are stable. General: No acute distress. HEENT: Head exam is unremarkable. On nasal cannula. LUNGS: No audible rhonchi or wheezes. HEART: Rate and Rhythm are regular. ABDOMEN: Nontender. EXTREMITITES: No edema. Objective - Vital Signs Vital signs: Vital Signs Temp 97.6 F 11/04/24 06:05 Pulse 74 11/04/24 09:04 Resp 18 11/04/24 09:04 BP 117/69 11/04/24 09:04 Pulse Ox 100 11/04/24 09:04 FiO2 40 11/04/24 07:30 Intake & Output 11/03/24 11/04/24 11/04/24 18:59 06:59 18:59 Intake Total 500 Output Total 6500 Balance -6000 Intake: Hemodialysis 500 Output: Hemodialysis 3500 Hemodialysis Net Amount 3000 - Labs CBC & Chem 7: 11/03/24 06:31 11/03/24 06:31 Labs: Abnormal Lab Results - Last 24 Hours (Table) 11/03/24 11/03/24 11/03/24 Range/Units 06:31 12:26 16:36 Sodium 132 L (137-145) mmol/L Chloride 92 L (98-107) mmol/L BUN 46 H (7-17) mg/dL Creatinine 4.63 H (0.52-1.04) mg/dL Glucose 120 H (74-99) mg/dL POC Glucose (mg/dL) 371 H >600 H* (70-110) mg/dL AST 61 H (14-36) U/L ALT 366 H (4-34) U/L Alkaline Phosphatase 292 H (38-126) U/L 11/03/24 11/03/24 11/03/24 Range/Units 16:39 18:06 19:20 Sodium (137-145) mmol/L Chloride (98-107) mmol/L BUN (7-17) mg/dL Creatinine (0.52-1.04) mg/dL Glucose (74-99) mg/dL POC Glucose (mg/dL) >600 H* >600 H* 530 H* (70-110) mg/dL AST (14-36) U/L ALT (4-34) U/L Alkaline Phosphatase (38-126) U/L 11/03/24 11/03/24 11/03/24 Range/Units 22:13 23:20 23:42 Sodium (137-145) mmol/L Chloride (98-107) mmol/L BUN (7-17) mg/dL Creatinine (0.52-1.04) mg/dL Glucose (74-99) mg/dL POC Glucose (mg/dL) 116 H 42 L* 142 H (70-110) mg/dL AST (14-36) U/L ALT (4-34) U/L Alkaline Phosphatase (38-126) U/L 11/04/24 11/04/24 11/04/24 Range/Units 03:28 06:07 07:59 Sodium (137-145) mmol/L Chloride (98-107) mmol/L BUN (7-17) mg/dL Creatinine (0.52-1.04) mg/dL Glucose (74-99) mg/dL POC Glucose (mg/dL) 145 H 311 H 386 H (70-110) mg/dL AST (14-36) U/L ALT (4-34) U/L Alkaline Phosphatase (38-126) U/L Assessment and Plan Plan: Assessment: 1. End-stage renal disease maintained on hemodialysis on Wednesday schedule. Has permacath. Has a maturing left upper extremity AV fistula. 2. Acute hypoxic respiratory failure. Improved. 3. Volume overload. Improved with ultrafiltration. 4. Anemia of chronic kidney disease. Iron deficiency noted. 5. Hypertensive emergency. Improved. 6. Chronic kidney disease mineral bone disease. Calcium level now normal. Phosphorus level 2.6. 7. Left arm numbness. Recent access surgery. Vascular surgery consulted. Plan: Currently seen while undergoing hemodialysis. Next treatment Wednesday. Maintain IV iron. Maintain fluid restriction.
[2024-11-04 11:13] LABS: ALT 241 U/L (8-44); AST 34 U/L (13-35); Albumin 3.9 g/dL (3.8-4.9); Albumin/Globulin Ratio 1.77 Ratio (1.60-3.17); Alkaline Phosphatase 229 U/L (41-126); BUN/Creat Ratio 8.49 Ratio (12.00-20.00); Blood Urea Nitrogen 36.5 mg/dL (9.0-27.0); Calcium 8.6 mg/dL (8.7-10.3); Carbon Dioxide 23.7 mmol/L (21.6-31.8); Chloride 85 mmol/L (96-109); Globulin 2.2 g/dL (1.6-3.3); Glucose 317 mg/dL (70-110); Sodium 125 mmol/L (135-145); Total Bilirubin 0.3 mg/dL (0.3-1.2); Total Protein 6.1 g/dL (6.2-8.2)
[2024-11-04 11:44] LABS: Glucose,Whole Blood 151 mg/dL (70-110)
[2024-11-04 12:07] LABS: Basophils # (A) 0.09 X 10*3/uL (0.00-0.10); Basophils % (A) 0.9 %; Eosinophils # (A) 0.78 X 10*3/uL (0.04-0.35); Eosinophils % (A) 7.6 %; HCT 21.1 % (37.2-46.3); HGB 6.8 g/dL (12.0-15.0); Lymphocytes # (A) 1.18 X 10*3/uL (0.90-5.00); Lymphocytes % (A) 11.5 %; MCH 32.5 pg (27.0-32.0); MCHC 32.2 g/dL (32.0-37.0); Mean Platelet Volume 10.7 FL (9.5-12.2); Monocytes # (A) 0.68 X 10*3/uL (0.20-1.00); Monocytes % (A) 6.6 %; NRBC Per 100 WBC 0.03 X 10*3/uL (0.00-0.01); Neutrophils # (A) 7.37 X 10*3/uL (1.80-7.70); Neutrophils % (A) 72.1 %; Platelet Count 363 X 10*3/uL (140-440); RBC 2.09 X 10*6/uL (4.10-5.20); RDW 16.6 % (11.5-14.5); WBC 10.23 X 10*3/uL (4.50-10.00)
--- NOTE | 2024-11-04 12:12 | P.GSCN ---
History of Present Illness Consult date: 11/04/24 History of present illness: Patient is a 34-year-old female well-known to our service from multiple previous consultations and office visits for this same concern. She recently had a left upper extremity loop forearm graft and supposedly has complaints now of the swelling. This is similar when discussed with her to previous. She has been trying to keep it wrapped and elevated. She has some issues she thinks with moving her hand and her housecalls nurse strength. Past Medical History Past Medical History: Diabetes Mellitus, GERD/Reflux, Hypertension, Renal Disease, Seizure Disorder, Thyroid Disorder Additional Past Medical History / Comment(s): Neuropathy, last seizure 2020, gastroparesis, headaches with dialysis, states "fast heart rate" since giving ., receives Hemodialysis Wednesday- and Saturdays at [facility] right chest hemodialysis catheter., severe HTN. patient awaiting Kidney and Pancrease Transplant. , states sometimes she has had stroke -like symptoms but no stroke., hx of c-diff 2013. History of Any Multi-Drug Resistant Organisms: C-DIFF Year Discovered:: unknown MDRO Source:: stool Past Surgical History: Adenoidectomy, Section, Cholecystectomy, Orthopedic Surgery, Tonsillectomy Additional Past Surgical History / Comment(s): 2 KNEE SCOPES, EAR TUBES, additional left knee surgery related to fracture, new port a cath jul 29, eye surgeries for diabetic retinopathy. Past Anesthesia/Blood Transfusion Reactions: Previous Problems w/ Anesthesia Additional Past Anesthesia/Blood Transfusion Reaction / Comm: confusion Past Psychological History: Anxiety, Depression Smoking Status: Current every day smoker Past Alcohol Use History: None Reported Past Drug Use History: Marijuana, Methamphetamine - Past Family History Father History Unknown: Yes Family Medical History: Unable to Obtain Mother History Unknown: Yes Family Medical History: No Reported History Grandfather History Unknown: Yes Family Medical History: Coronary Artery Disease (CAD) Additional Family Medical History / Comment(s): Diabetes mellitus type 2 Medications and Allergies Home Medications Medication Instructions Recorded Confirmed Type Docusate [Colace] 100 mg PO DAILY@0800 02/05/24 11/02/24 History Lidocaine 4% Patch 1 patch TOPICAL DAILY@0800 02/05/24 11/02/24 History Magnesium Hydroxide [Milk of 7,200 mg PO DAILY PRN 02/05/24 11/02/24 History Magnesia Concentrate] Ipratropium-Albuterol Nebulize 3 ml INHALATION RT-TID PRN each 02/14/24 11/02/24 Rx [Duoneb 0.5 mg-3 mg/3 ml Soln] polyethylene glycoL 3350 [Miralax] 17 gm PO AC-LUNCH #527 gm 02/14/24 11/02/24 Rx Acetaminophen [Tylenol] 650 mg PO Q4H PRN 02/18/24 11/02/24 History Biotene Dry Mouth/Throat 10 ml PO BID PRN 02/18/24 11/02/24 History Melatonin 1 mg PO HS tab 02/25/24 11/02/24 Rx Butalb/APAP/Caff 50-325-40Mg 1 tab PO Q4HR PRN 03/14/24 11/02/24 History [Fioricet 50-325-40] Darbepoetin Artur [Aranesp] 40 mcg SQ MO 03/14/24 11/02/24 History Loratadine [Claritin] 5 mg PO DAILY tab 03/30/24 11/02/24 Rx Aspirin 81 mg PO DAILY@0800 #30 tab 05/18/24 11/02/24 Rx Famotidine [Pepcid] 20 mg PO BID #60 tab 07/11/24 11/02/24 Rx Atorvastatin [Lipitor] 40 mg PO DIRECTED 08/14/24 11/02/24 History Divalproex ER [Depakote ER] 500 mg PO BID@0800,1700 08/14/24 11/02/24 History Levothyroxine Sodium [Synthroid] 175 mcg PO DAILY@0600 08/14/24 11/02/24 History Metoclopramide [Reglan] 5 mg PO AC-TID PRN 08/14/24 11/02/24 History Pantoprazole [Protonix] 40 mg PO DAILY@0600 08/14/24 11/02/24 History Sertraline [Zoloft] 200 mg PO DAILY@0800 08/14/24 11/02/24 History traZODone HCL [Desyrel] 50 mg PO HS 08/14/24 11/02/24 History ALPRAZolam [Xanax] 0.25 mg PO BID PRN 09/04/24 11/02/24 History Calcium Acetate [PhosLo] 2,001 mg PO TID-W/MEALS 09/04/24 11/02/24 History Calcium Acetate [PhosLo] 667 mg PO DAILY PRN 09/04/24 11/02/24 History cloNIDine HCL [Catapres] 0.3 mg PO TID 09/04/24 11/02/24 History Colchicine [Colcrys] 0.3 mg PO DAILY #15 each 09/23/24 11/02/24 Rx Isosorbide Mononitrate ER [Imdur] 120 mg PO DAILY #60 tab 09/23/24 11/02/24 Rx Labetalol [Trandate] 500 mg PO BID #150 tab 09/23/24 11/02/24 Rx NIFEdipine XL [Procardia XL] 60 mg PO BID #60 tab 09/23/24 11/02/24 Rx hydrALAZINE HCL [Apresoline] 100 mg PO TID #90 tab 09/23/24 11/02/24 Rx Triphrocaps 1mg Cap 1 cap PO DAILY 10/10/24 11/02/24 History Gabapentin [Neurontin] 600 mg PO TID 11/02/24 11/02/24 History Insulin Aspart (For Pump) [NovoLOG 0.01 unit SQ-PUMP CONTINUOUS 11/02/24 History (For Pump)] Ondansetron Odt [Zofran Odt] 4 mg PO Q8HR PRN 11/02/24 11/02/24 History oxyCODONE-APAP 10-325MG [Percocet 1 tab PO Q4HR PRN 11/02/24 11/02/24 History 10-325 mg] Allergies Allergy/AdvReac Type Severity Reaction Status Date / Time hydromorphone HCl Allergy Anaphylaxis Verified 10/21/24 11:45 [From Dilaudid] propoxyphene Allergy Rash/Hives Verified 10/21/24 11:45 [From Darvocet-N] tramadol Allergy Anaphylaxis Verified 10/21/24 11:45 ibuprofen [From Motrin] AdvReac unable to Verified 10/21/24 11:45 take due to kidney disease venom-honey bee AdvReac passes out Verified 10/21/24 11:45 [bee venom (honey bee)] Surgical - Exam Vital Signs Resp BP Pulse Ox 28 H 206/128 100 11/02/24 06:39 11/02/24 06:39 11/02/24 06:39 Is a pleasant cooperative female in no acute distress sleeping well she is getting dialysis via a chest wall tunneled catheter that is functioning well. There is no surrounding erythema or swelling at the catheter site. There is no concern in this regard. Her left upper extremity actually has significantly improved swelling from our previous visit last Wednesday in my office. Due to the way her wrap was on, her hand is mildly more swollen as the wrap did not include her hand. She maintains palpable pulse and thrill through the graft with palpable radial pulse. She is motor intact to her hands although mildly difficult due to the swelling. She is able to grasp without significant issue. The wrap is removed I do not think she needs it anymore. Results - Labs 11/04/24 06:36 11/04/24 06:36 Abnormal Lab Results - Last 24 Hours (Table) 11/03/24 11/03/24 11/03/24 Range/Units 06:31 12:26 16:36 WBC (4.50-10.00) X 10*3/uL RBC (4.10-5.20) X 10*6/uL Hgb (12.0-15.0) g/dL Hct (37.2-46.3) % MCV (80.0-97.0) FL MCH (27.0-32.0) pg RDW (11.5-14.5) % Immature Gran # (0.00-0.04) X 10*3/uL Eosinophils # (0.04-0.35) X 10*3/uL NRBC/100 WBC Diff (0.00-0.01) X 10*3/uL Sodium 132 L (137-145) mmol/L Potassium (3.5-5.5) mmol/L Chloride 92 L (98-107) mmol/L Anion Gap (4.00-12.00) mmol/L BUN 46 H (7-17) mg/dL Creatinine 4.63 H (0.52-1.04) mg/dL Est GFR (CKD-EPI) (>=60) BUN/Creatinine Ratio (12.00-20.00) Ratio Glucose 120 H (74-99) mg/dL POC Glucose (mg/dL) 371 H >600 H* (70-110) mg/dL Calcium (8.7-10.3) mg/dL AST 61 H (14-36) U/L ALT 366 H (4-34) U/L Alkaline Phosphatase 292 H (38-126) U/L Total Protein (6.2-8.2) g/dL 11/03/24 11/03/24 11/03/24 Range/Units 16:39 18:06 19:20 WBC (4.50-10.00) X 10*3/uL RBC (4.10-5.20) X 10*6/uL Hgb (12.0-15.0) g/dL Hct (37.2-46.3) % MCV (80.0-97.0) FL MCH (27.0-32.0) pg RDW (11.5-14.5) % Immature Gran # (0.00-0.04) X 10*3/uL Eosinophils # (0.04-0.35) X 10*3/uL NRBC/100 WBC Diff (0.00-0.01) X 10*3/uL Sodium (137-145) mmol/L Potassium (3.5-5.5) mmol/L Chloride (98-107) mmol/L Anion Gap (4.00-12.00) mmol/L BUN (7-17) mg/dL Creatinine (0.52-1.04) mg/dL Est GFR (CKD-EPI) (>=60) BUN/Creatinine Ratio (12.00-20.00) Ratio Glucose (74-99) mg/dL POC Glucose (mg/dL) >600 H* >600 H* 530 H* (70-110) mg/dL Calcium (8.7-10.3) mg/dL AST (14-36) U/L ALT (4-34) U/L Alkaline Phosphatase (38-126) U/L Total Protein (6.2-8.2) g/dL 11/03/24 11/03/24 11/03/24 Range/Units 22:13 23:20 23:42 WBC (4.50-10.00) X 10*3/uL RBC (4.10-5.20) X 10*6/uL Hgb (12.0-15.0) g/dL Hct (37.2-46.3) % MCV (80.0-97.0) FL MCH (27.0-32.0) pg RDW (11.5-14.5) % Immature Gran # (0.00-0.04) X 10*3/uL Eosinophils # (0.04-0.35) X 10*3/uL NRBC/100 WBC Diff (0.00-0.01) X 10*3/uL Sodium (137-145) mmol/L Potassium (3.5-5.5) mmol/L Chloride (98-107) mmol/L Anion Gap (4.00-12.00) mmol/L BUN (7-17) mg/dL Creatinine (0.52-1.04) mg/dL Est GFR (CKD-EPI) (>=60) BUN/Creatinine Ratio (12.00-20.00) Ratio Glucose (74-99) mg/dL POC Glucose (mg/dL) 116 H 42 L* 142 H (70-110) mg/dL Calcium (8.7-10.3) mg/dL AST (14-36) U/L ALT (4-34) U/L Alkaline Phosphatase (38-126) U/L Total Protein (6.2-8.2) g/dL 11/04/24 11/04/24 11/04/24 Range/Units 03:28 06:07 06:36 WBC 10.23 H (4.50-10.00) X 10*3/uL RBC 2.09 L (4.10-5.20) X 10*6/uL Hgb 6.8 A* (12.0-15.0) g/dL Hct 21.1 L (37.2-46.3) % MCV 101.0 H (80.0-97.0) FL MCH 32.5 H (27.0-32.0) pg RDW 16.6 H (11.5-14.5) % Immature Gran # 0.13 H (0.00-0.04) X 10*3/uL Eosinophils # 0.78 H (0.04-0.35) X 10*3/uL NRBC/100 WBC Diff 0.03 H (0.00-0.01) X 10*3/uL Sodium (137-145) mmol/L Potassium (3.5-5.5) mmol/L Chloride (98-107) mmol/L Anion Gap (4.00-12.00) mmol/L BUN (7-17) mg/dL Creatinine (0.52-1.04) mg/dL Est GFR (CKD-EPI) (>=60) BUN/Creatinine Ratio (12.00-20.00) Ratio Glucose (74-99) mg/dL POC Glucose (mg/dL) 145 H 311 H (70-110) mg/dL Calcium (8.7-10.3) mg/dL AST (14-36) U/L ALT (4-34) U/L Alkaline Phosphatase (38-126) U/L Total Protein (6.2-8.2) g/dL 11/04/24 11/04/24 11/04/24 Range/Units 06:36 07:59 11:43 WBC (4.50-10.00) X 10*3/uL RBC (4.10-5.20) X 10*6/uL Hgb (12.0-15.0) g/dL Hct (37.2-46.3) % MCV (80.0-97.0) FL MCH (27.0-32.0) pg RDW (11.5-14.5) % Immature Gran # (0.00-0.04) X 10*3/uL Eosinophils # (0.04-0.35) X 10*3/uL NRBC/100 WBC Diff (0.00-0.01) X 10*3/uL Sodium 125 L (137-145) mmol/L Potassium 6.0 H (3.5-5.5) mmol/L Chloride 85 L (98-107) mmol/L Anion Gap 16.30 H (4.00-12.00) mmol/L BUN 36.5 H (7-17) mg/dL Creatinine 4.3 H (0.52-1.04) mg/dL Est GFR (CKD-EPI) 13 L (>=60) BUN/Creatinine Ratio 8.49 L (12.00-20.00) Ratio Glucose 317 H (74-99) mg/dL POC Glucose (mg/dL) 386 H 151 H (70-110) mg/dL Calcium 8.6 L (8.7-10.3) mg/dL AST (14-36) U/L ALT 241 H (4-34) U/L Alkaline Phosphatase 229 H (38-126) U/L Total Protein 6.1 L (6.2-8.2) g/dL Diabetes panel 11/03/24 11/04/24 Range/Units 06:31 06:36 Sodium 132 L 125 L (137-145) mmol/L Potassium 4.9 6.0 H (3.5-5.1) mmol/L Chloride 92 L 85 L (98-107) mmol/L Carbon Dioxide 30 23.7 (22-30) mmol/L BUN 46 H 36.5 H (7-17) mg/dL Creatinine 4.63 H 4.3 H (0.52-1.04) mg/dL Glucose 120 H 317 H (74-99) mg/dL Calcium 9.7 8.6 L (8.4-10.2) mg/dL AST 61 H 34 (14-36) U/L ALT 366 H 241 H (4-34) U/L Alkaline Phosphatase 292 H 229 H (38-126) U/L Total Protein 6.9 6.1 L (6.3-8.2) g/dL Albumin 4.1 3.9 (3.5-5.0) g/dL Calcium panel 11/03/24 11/04/24 Range/Units 06:31 06:36 Calcium 9.7 8.6 L (8.4-10.2) mg/dL Albumin 4.1 3.9 (3.5-5.0) g/dL Pituitary panel 11/03/24 11/04/24 Range/Units 06:31 06:36 Sodium 132 L 125 L (137-145) mmol/L Potassium 4.9 6.0 H (3.5-5.1) mmol/L Chloride 92 L 85 L (98-107) mmol/L Carbon Dioxide 30 23.7 (22-30) mmol/L BUN 46 H 36.5 H (7-17) mg/dL Creatinine 4.63 H 4.3 H (0.52-1.04) mg/dL Glucose 120 H 317 H (74-99) mg/dL Calcium 9.7 8.6 L (8.4-10.2) mg/dL Adrenal panel 11/03/24 11/04/24 Range/Units 06:31 06:36 Sodium 132 L 125 L (137-145) mmol/L Potassium 4.9 6.0 H (3.5-5.1) mmol/L Chloride 92 L 85 L (98-107) mmol/L Carbon Dioxide 30 23.7 (22-30) mmol/L BUN 46 H 36.5 H (7-17) mg/dL Creatinine 4.63 H 4.3 H (0.52-1.04) mg/dL Glucose 120 H 317 H (74-99) mg/dL Calcium 9.7 8.6 L (8.4-10.2) mg/dL Total Bilirubin 0.8 0.3 (0.2-1.3) mg/dL AST 61 H 34 (14-36) U/L ALT 366 H 241 H (4-34) U/L Alkaline Phosphatase 292 H 229 H (38-126) U/L Total Protein 6.9 6.1 L (6.3-8.2) g/dL Albumin 4.1 3.9 (3.5-5.0) g/dL Assessment and Plan Assessment: End-stage renal disease, on dialysis Newly placed left loop forearm graft Upper extremity edema significantly improved Plan: I came in to see Marita in the ER. Her arms evaluated I do not believe there is any overly concerning finding. She no longer needs the compression wrap and I think it might be eating into some of her just mobility issues. Encouraged the importance of moving the upper extremity as well as the hand. She is given a rolled Kerlix to utilize for housecalls nurse. She seemingly understands and is fine with this discourse. She does not have any questions or concerns at this time.No vascular intervention indicated. Follow-up as previously scheduled in the office for ultrasound maturation evaluation
--- NOTE | 2024-11-04 13:39 | P.PN ---
Subjective Progress Note Date: 11/04/24 Patient is a 34-year-old female with past medical history of ESRD on hemodialysis (MTThSa), hypertension, history of CVA in November 2023, insulin- dependent diabetes mellitus, seizure disorder, hypothyroidism, anxiety, GERD presents to the emergency department for hypertension, chest pain, and dyspnea. She states that she was sent here from dialysis due to her systolic blood pressure being close to 250. She notes that the chest pain feels like a squeezing/tight pressure across the entire front of her chest which does radiate to her back. It worsens with deep inspiration. She rates it as a 6/10 pain. She notes that she usually feels this chest pain when she is volume overloaded and that it improves with dialysis. She reports sleeping in a recliner with 1 pillow since April. She currently reports a squeezing global headache noting that she feels pressure behind her eyes. She states that she has felt this pain before and she usually just sleeps it off or takes Tylenol for it. She denies vision changes or ringing in the ears. She also notes that she has had intermittent bloody noses for about 3 days with about 20 episodes per day lasting anywhere from 30 seconds to 5 minutes. She states compliance with her medications. She currently reports chest pain, dyspnea, nausea, headache, and epistaxis. Denies fever, chills, abdominal pain, vomiting, cough. Initial EKG independently interpreted: Sinus tachycardia no significant ST-T wave changes Initial chest x-ray independently interpreted: Bilateral interstitial opacities Initial labs: WBC 22, hemoglobin 8.6, hematocrit 26.2, platelets 447, PT 11.2, INR 1, APTT 26.3, sodium 135, potassium 5, chloride 92, CO2 24, BUN 70, creati nine 6.25, glucose 119, lactic acid 1.5, calcium 10.5, magnesium 1.6, AST 121, ALT 363, alkaline phosphatase 365, troponin X1 0.074, BNP 38,800. Initial vitals: BP 206/128, [place] 128, RR 28, 100% oxygen saturation on CPAP. 11/03. Patient seen and examined laying in bed. She reports unchanged chest p ain and headache. Denies fever, dyspnea, nausea, and abdominal pain. Reports no epistaxis today. Labs today: WBC 12.1, hemoglobin 8.6, platelets 429, sodium 132, potassium 4.9, chloride 92, BUN 46, creatinine 4.63, glucose 120. Pending liver enzymes. Right upper quadrant ultrasound yesterday: Relatively normal sonographic appearance of the liver no dilated ducts cystic structures or masses, increased echotexture of the kidney with atrophy changes currently from medical renal disease. Chest x-ray independently interpreted, shows bilateral interstitial opacities. 11/04. Patient seen lying comfortably in bed. Reports unchanged headache and chest pain. Denies fever, vomiting, dyspnea, abdominal pain. Seen while undergoing hemodialysis. Labs today: WBC 10.23, RBC 2.09, hemoglobin 6.8, platelets 363, sodium 125, potassium 6, chloride 85, BUN 36.5, creatinine 4.3, glucose 317, AST 34, ALT 241, alkaline phosphatase 229. She also reports swelling and weakness of the left hand/wrist that began last nightshe is status post AV graft. Pertinent positives and negatives discussed above, a complete review of systems was performed and all the other systems were negative. Physical examination: Vital signs reviewed. Afebrile, hypotensive episodes, saturating 98% on 2 L nasal cannula. 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 Cranial nerves II to XII grossly intact. Psych: Appropriate affect and mood Assessment and Plan: Patient is a 34-year-old female with past medical history of ESRD on hemodialysis (MTTa), hypertension, history of CVA in November 2023, insulin- dependent diabetes mellitus, seizure disorder, hypothyroidism, anxiety, GERD admitted for hypertensive emergency. Active #. Acute hypoxic respiratory failure, improved #. Acute pulmonary edema #. Hypervolemia Wean oxygen supplementation to room air as tolerated Nephrology consulted for management of dialysis. Note reviewed: Maintain IV iron, maintain fluid restriction, next hemodialysis on Wednesday Home antihypertensives: Clonidine 0.3 mg PO 3 times daily, hydralazine 100 mg PO 3 times daily, Imdur 120 mg PO daily, labetalol 500 mg PO twice daily, nifedipine 60 mg PO twice daily Discussed management with nephrology, for systolic blood pressure <120 hold hydralazine and clonidine #Acute on chronic Anemia -no active bleeding -1 unit of pRBCs #. Transaminitis, possibly congestive hepatopathy Monitor CMP #. Acute chest pain, likely due to hypervolemia #. NSTEMI, likely type II Continuous telemetry Not improved with nitro drip (currently off) #. Leukocytosis, likely reactive, improved Monitor CBC #. Tension headache Continue Tylenol 650 mg PO every 6 hours as needed #. Left forearm edema and weakness Ultrasound venous Doppler Vascular surgery note reviewed: Compression wrap no longer needed, increase mobility of the left upper extremity Resolved #. Epistaxis, likely anterior Chronic #. ESRD on hemodialysis (MTThSa) Nephrology consulted for management of dialysis #. Insulin-dependent diabetes mellitus Insulin sliding scale while inpatient, monitor for hypoglycemia Levemir 10 twice daily Insulin pump off Accu-Cheks ACHS Hypoglycemic precautions #. History of CVA Aspirin 81 mg PO daily #. Hypertension #. Hypothyroidism #. Seizure disorder #. Anxiety #. GERD Continue home medications #. Gout Hold colchicine F: None E: Replete if required N: Renal diet A: Ambulatory DVT prophylaxis: Subcutaneous heparin every 8 hours GI prophylaxis: Protonix 40 mg PO daily Code status: Full code Anticipated discharge place: Home I have seen and evaluated the patient today. Discussed with the resident and agree with the residents finding and plan as documented in the resident's note. Changes highlighted in blue font. Objective - Vital Signs Vital signs: Vital Signs Temp 97.6 F 11/04/24 06:05 Pulse 71 11/04/24 06:05 Resp 18 11/04/24 06:05 BP 98/60 11/04/24 06:05 Pulse Ox 98 11/04/24 06:05 FiO2 40 11/02/24 07:51 Intake & Output 11/03/24 11/04/24 11/04/24 18:59 06:59 18:59 Intake Total 500 Output Total 6500 Balance -6000 Intake: Hemodialysis 500 Output: Hemodialysis 3500 Hemodialysis Net Amount 3000 - Labs CBC & Chem 7: 11/04/24 06:36 11/04/24 06:36 Labs: Abnormal Lab Results - Last 24 Hours (Table) 11/03/24 11/03/24 11/03/24 Range/Units 06:31 06:31 07:59 WBC 12.1 H (3.8-10.6) k/uL RBC 2.69 L (3.80-5.40) m/uL Hgb 8.6 L (11.4-16.0) gm/dL Hct 27.2 L (34.0-46.0) % MCV 100.8 H (80.0-100.0) fL RDW 17.1 H (11.5-15.5) % Neutrophils # 8.8 H (1.3-7.7) k/uL Eosinophils # 1.2 H (0-0.7) k/uL Sodium 132 L (137-145) mmol/L Chloride 92 L (98-107) mmol/L BUN 46 H (7-17) mg/dL Creatinine 4.63 H (0.52-1.04) mg/dL Glucose 120 H (74-99) mg/dL POC Glucose (mg/dL) 170 H (70-110) mg/dL AST 61 H (14-36) U/L ALT 366 H (4-34) U/L Alkaline Phosphatase 292 H (38-126) U/L 11/03/24 11/03/24 11/03/24 Range/Units 12:26 16:36 16:39 WBC (3.8-10.6) k/uL RBC (3.80-5.40) m/uL Hgb (11.4-16.0) gm/dL Hct (34.0-46.0) % MCV (80.0-100.0) fL RDW (11.5-15.5) % Neutrophils # (1.3-7.7) k/uL Eosinophils # (0-0.7) k/uL Sodium (137-145) mmol/L Chloride (98-107) mmol/L BUN (7-17) mg/dL Creatinine (0.52-1.04) mg/dL Glucose (74-99) mg/dL POC Glucose (mg/dL) 371 H >600 H* >600 H* (70-110) mg/dL AST (14-36) U/L ALT (4-34) U/L Alkaline Phosphatase (38-126) U/L 11/03/24 11/03/24 11/03/24 Range/Units 18:06 19:20 22:13 WBC (3.8-10.6) k/uL RBC (3.80-5.40) m/uL Hgb (11.4-16.0) gm/dL Hct (34.0-46.0) % MCV (80.0-100.0) fL RDW (11.5-15.5) % Neutrophils # (1.3-7.7) k/uL Eosinophils # (0-0.7) k/uL Sodium (137-145) mmol/L Chloride (98-107) mmol/L BUN (7-17) mg/dL Creatinine (0.52-1.04) mg/dL Glucose (74-99) mg/dL POC Glucose (mg/dL) >600 H* 530 H* 116 H (70-110) mg/dL AST (14-36) U/L ALT (4-34) U/L Alkaline Phosphatase (38-126) U/L 11/03/24 11/03/24 11/04/24 Range/Units 23:20 23:42 03:28 WBC (3.8-10.6) k/uL RBC (3.80-5.40) m/uL Hgb (11.4-16.0) gm/dL Hct (34.0-46.0) % MCV (80.0-100.0) fL RDW (11.5-15.5) % Neutrophils # (1.3-7.7) k/uL Eosinophils # (0-0.7) k/uL Sodium (137-145) mmol/L Chloride (98-107) mmol/L BUN (7-17) mg/dL Creatinine (0.52-1.04) mg/dL Glucose (74-99) mg/dL POC Glucose (mg/dL) 42 L* 142 H 145 H (70-110) mg/dL AST (14-36) U/L ALT (4-34) U/L Alkaline Phosphatase (38-126) U/L 11/04/24 Range/Units 06:07 WBC (3.8-10.6) k/uL RBC (3.80-5.40) m/uL Hgb (11.4-16.0) gm/dL Hct (34.0-46.0) % MCV (80.0-100.0) fL RDW (11.5-15.5) % Neutrophils # (1.3-7.7) k/uL Eosinophils # (0-0.7) k/uL Sodium (137-145) mmol/L Chloride (98-107) mmol/L BUN (7-17) mg/dL Creatinine (0.52-1.04) mg/dL Glucose (74-99) mg/dL POC Glucose (mg/dL) 311 H (70-110) mg/dL AST (14-36) U/L ALT (4-34) U/L Alkaline Phosphatase (38-126) U/L
[2024-11-04 13:49] LABS: Glucose,Whole Blood 131 mg/dL (70-110)
--- NOTE | 2024-11-04 13:49 | US ---
EXAMINATION TYPE: US venous doppler duplex UE LT DATE OF EXAM: 11/04/2024 COMPARISON: EXAMINATION TYPE: US venous doppler duplex UE LT DATE OF EXAM: 11/04/2024 COMPARISON: NONE CLINICAL INDICATION: Female, 34 years old with history of edema assess av graft; Assess graft. TECHNIQUE: Grayscale and color Doppler and spectral Doppler imaging of the left graft. FINDINGS: Scanned left graft appears patent with appropriate arterial and spectral waveforms. No org anizing fluid collection or evidence for thrombus. IMPRESSION: Patent left proximal radiograph. No organizing fluid collection thrombus visualized. [facility], , 11/04/2024 1:47 PM
--- NOTE | 2024-11-04 14:46 | P.PN ---
Subjective Progress Note Date: 11/04/24 This is a 34-year-old female patient came into the emergency department with acute respiratory distress. The patient is known to us and the patient has end- stage renal disease on hemodialysis 4 times a week, Wednesday, Wednesday, and Wednesday. The patient was found to be having significant shortness of breath and hemodialysis and the patient was diverted to the hospital. Initially she was placed on a BiPAP and she was noted to be and pulmonary edema/fluid overload. At the same time, the patient was quite hypertensive and her initial blood pressure was 206/128. A stat hemodialysis was done in the emergency department. Subsequently, the patient respiratory is improved and she was weaned off the BiPAP and the patient is currently on 2 L of O2 nasal cannula with a pulse ox of 97%. Blood pressure remains elevated. Recommended Cleviprex drip that was started in the emergency. At the same time, the patient on clonidine 0.3 mg p.o. 3 times daily, hydralazine 100 mg p.o. 3 times daily, labetalol 500 mg p.o. twice daily, and Procardia XL 60 mg p.o. twice daily. Clevidipine drip is running at 1 mg an hour. No chest pain. She is lethargic. There is no focal neurological deficits. The WBC count is at 22 with a hemoglobin 8.6 and a platelet count of 447. Sodium is at 130, potassium is 4.5, BUN 28 with a creatinine of 3.4 and a bicarb is at 26. Blood sugars have been fluctuating between 140 and 465. LFTs show an AST of 90, ALT of 316, alkaline phosphatase of 330. Troponins are abnormal with levels of 0.07, 0.09 and 0.07 respectively and the proBNP level is 13,800. Protein and albumin are both within normal limits. Ultrasound of the abdomen was done and showed no dilat ation of the hepatic ducts and the common bile duct was also within normal limits. The gallbladder was surgically absent. No fever. No chest pain. No other complaints otherwise for now. The patient makes no urine. In terms of her blood sugar control, the patient has been maintained on insulin pump on outpatient basis. On 11/03/2024, the patient is being seen for a follow-up. The patient is undergoing hemodialysis with a goal of ultrafiltration of around 3 L. Noted her blood pressure is stable and the patient was taken off the Cleviprex drip. The patient is currently on clonidine 0.3 mg p.o. 3 times daily, Imdur 120 mg p.o. daily, hydralazine 100 mg p.o. 3 times daily, labetalol 500 mg p.o. twice daily and Procardia 60 mg p.o. twice a day. No headaches. No chest pain. No altered mentation. Underwent hemodialysis and another session of hemodialysis to be done today. A follow-up chest x-ray was done today and shows improvement in volume status and there is significant improvement in the pulmonary vascular congestion. Oxygenation is also improved and the patient is currently off the BiPAP, he is only on 2 L of oxygen by nasal cannula with a pulse ox of 97%. No altered mentation. No respiratory distress. On 11/04/2024, the patient has a stable blood pressure. No specific complaints. Resting comfortably in bed. Blood pressure is under very good control. She is going to undergo another session of hemodialysis. Tolerated 3 L of ultrafiltration yesterday. She is on 2 L with a pulse ox of 98 to 100%. She has a left upper extremity graft for dialysis access. The white cell count of 10.2 with a hemoglobin 6.8 and a platelet count of 363. Sodium levels at 125, BUN is 36 with a creatinine of 4.3. No shortness of breath. No chest pain. Objective - Vital Signs Vital signs: Vital Signs Temp 97.6 F 11/04/24 06:05 Pulse 74 11/04/24 09:04 Resp 18 11/04/24 09:04 BP 117/69 11/04/24 09:04 Pulse Ox 100 11/04/24 09:04 FiO2 40 11/04/24 07:30 Intake & Output 11/03/24 11/04/24 11/04/24 18:59 06:59 18:59 Intake Total 500 Output Total 6500 Balance -6000 Intake: Hemodialysis 500 Output: Hemodialysis 3500 Hemodialysis Net Amount 3000 - Exam GENERAL EXAM: Alert, 34-year-old female, resting in bed, patient is currently on 2 L of oxygen by nasal cannula HEAD: Normocephalic. EYES: Normal reaction of pupils, equal size. NOSE: Clear with pink turbinates. Recent epistaxis. THROAT: No erythema or exudates. NECK: No masses, no JVD. CHEST: No chest wall deformity. Dialysis catheter on the right LUNGS: Fine crackles at the bases. No rhonchi no wheezes. CVS: S1 and S2 normal with no audible murmur, regular rhythm. ABDOMEN: No hepatosplenomegaly, normal bowel sounds, no guarding or rigidity. SKIN: No rashes CENTRAL NERVOUS SYSTEM: No focal deficits, tone is normal in all 4 extremities. EXTREMITIES: There is no peripheral edema. No clubbing, no cyanosis. Peripheral pulses are intact. - Labs CBC & Chem 7: 11/04/24 06:36 11/04/24 06:36 Labs: Abnormal Lab Results - Last 24 Hours (Table) 11/03/24 11/03/24 11/03/24 Range/Units 06:31 12:26 16:36 Sodium 132 L (137-145) mmol/L Chloride 92 L (98-107) mmol/L BUN 46 H (7-17) mg/dL Creatinine 4.63 H (0.52-1.04) mg/dL Glucose 120 H (74-99) mg/dL POC Glucose (mg/dL) 371 H >600 H* (70-110) mg/dL AST 61 H (14-36) U/L ALT 366 H (4-34) U/L Alkaline Phosphatase 292 H (38-126) U/L 11/03/24 11/03/24 11/03/24 Range/Units 16:39 18:06 19:20 Sodium (137-145) mmol/L Chloride (98-107) mmol/L BUN (7-17) mg/dL Creatinine (0.52-1.04) mg/dL Glucose (74-99) mg/dL POC Glucose (mg/dL) >600 H* >600 H* 530 H* (70-110) mg/dL AST (14-36) U/L ALT (4-34) U/L Alkaline Phosphatase (38-126) U/L 11/03/24 11/03/24 11/03/24 Range/Units 22:13 23:20 23:42 Sodium (137-145) mmol/L Chloride (98-107) mmol/L BUN (7-17) mg/dL Creatinine (0.52-1.04) mg/dL Glucose (74-99) mg/dL POC Glucose (mg/dL) 116 H 42 L* 142 H (70-110) mg/dL AST (14-36) U/L ALT (4-34) U/L Alkaline Phosphatase (38-126) U/L 11/04/24 11/04/24 11/04/24 Range/Units 03:28 06:07 07:59 Sodium (137-145) mmol/L Chloride (98-107) mmol/L BUN (7-17) mg/dL Creatinine (0.52-1.04) mg/dL Glucose (74-99) mg/dL POC Glucose (mg/dL) 145 H 311 H 386 H (70-110) mg/dL AST (14-36) U/L ALT (4-34) U/L Alkaline Phosphatase (38-126) U/L Assessment and Plan Plan: Acute hypoxemic respiratory failure secondary to an acute episode of pulmonary edema and fluid volume overload, initially placed on BiPAP and subsequently the patient underwent emergent hemodialysis and the patient respiratory status improved and oxygenation has also improved and the patient is currently on 2 L of O2 nasal cannula. Chest x-ray shows improvement in the pulm vascular congestion and the patient is undergoing regular dialysis another session to be done today. Ultrafiltration of 3 L was performed yesterday. Acute shortness of breath, improved with hemodialysis Acute hypertensive emergency, currently on Imdur, Procardia, clonidine, hydralazine and labetolol, BP is controlled and the patient is currently off to Cleviprex drip Episodic chest pain, normal coronaries on previous cardiac cath, positive trop leak related to hypertension and myocardial type II ischemia End-stage renal disease requiring hemodialysis 4 times per week Diabetes mellitus, insulin-dependent Anemia of chronic disease History of CVA/TIA History of optic neuritis Hypothyroidism History of depression Plan Hemodialysis be today Wean down FiO2 as tolerated to maintain saturation above 90%, currently on 2 L Patient is off the Cleviprex drip Continue a combination of Imdur, hydralazine, labetalol and clonidine and Procardia for blood pressure control, BP is under adequate control for now Nephrology on the case regarding hemodialysis Start the patient on Levemir insulin and monitor the blood sugars, currently on 10 units twice daily and sliding scale coverage. Proceed with another session of hemodialysis today Monitor hemoglobin, will be given a unit of packed RBC Nephrology on the case Pulmonary critical care services will sign off
[2024-11-04] MEDS: DESMOPRESSIN ACETATE 19 MCG in SODIUM CHLORIDE 0.9% 50 ML IVPB ONE (15:50)
[2024-11-04 16:06] LABS: Appearance,Urine Cloudy (Clear); Bacteria,Urine Rare /hpf; Bilirubin,Urine Negative (Negative); Blood,Urine Negative (Negative); Color,Urine Light Yellow; Glucose,Urine (UA) 3+ (Negative); Ketones,Urine Negative (Negative); Leukocyte Esterase,Urine Trace (Negative); Mucus,Urine Rare /hpf; Nitrite,Urine Negative (Negative); Protein,Urine 3+ (Negative); RBC,Urine 3 /hpf (0-5); Squamous Epithelial Cell,Urine 3 /hpf (0-4); Urobilinogen,Urine <2.0 mg/dL (<2.0); WBC,Urine 22 /hpf (0-5)
[2024-11-04 16:59] LABS: Glucose,Whole Blood 499 mg/dL (70-110)
[2024-11-04 17:41] LABS: Glucose,Whole Blood 572 mg/dL (70-110)
[2024-11-04 18:17] LABS: Glucose,Whole Blood 525 mg/dL (70-110)
[2024-11-04 19:52] LABS: Glucose,Whole Blood 557 mg/dL (70-110)
[2024-11-04] MEDS: INSULIN DETEMIR (LEVEMIR) 100 UNIT/ML SYR SQ SCH (21:14)
[2024-11-04] MEDS: LABETALOL 100 MG TAB PO SCH (21:27)
[2024-11-05 01:43] LABS: Glucose,Whole Blood 327 mg/dL (70-110)
[2024-11-05 06:17] LABS: Glucose,Whole Blood 306 mg/dL (70-110)
[2024-11-05] MEDS: INSULIN DETEMIR (LEVEMIR) 100 UNIT/ML SYR SQ STA (09:18)
--- NOTE | 2024-11-05 09:49 | P.PN ---
Subjective Patient is seen in follow-up for end-stage renal disease. She is maintained on hemodialysis on Wednesday schedule. Tolerated 3 L ultrafiltration yesterday. Pain in left arm improved. Vital signs are stable. General: No acute distress. HEENT: Head exam is unremarkable. On room air. LUNGS: No audible rhonchi or wheezes. HEART: Rate and Rhythm are regular. ABDOMEN: Nontender. EXTREMITITES: No edema. Objective - Vital Signs Vital signs: Vital Signs Temp 98.5 F 11/05/24 07:10 Pulse 84 11/05/24 07:10 Resp 18 11/05/24 07:10 BP 154/81 11/05/24 07:10 Pulse Ox 98 11/05/24 07:10 FiO2 40 11/04/24 07:30 Intake & Output 11/04/24 11/05/24 11/05/24 18:59 06:59 18:59 Intake Total 310 980 100 Output Total 200 6500 Balance 110 -5520 100 Weight 61.69 kg 62.3 kg Intake: Oral 480 100 Blood Product 310 Rc As-1 Unit 310 [id number] Hemodialysis 500 Output: Urine 200 Hemodialysis 3500 Hemodialysis Net Amount 3000 Other: # Voids 1 2 - Labs CBC & Chem 7: 11/04/24 06:36 11/04/24 17:08 Labs: Abnormal Lab Results - Last 24 Hours (Table) 11/04/24 11/04/24 11/04/24 Range/Units 06:36 06:36 11:43 WBC 10.23 H (4.50-10.00) X 10*3/uL RBC 2.09 L (4.10-5.20) X 10*6/uL Hgb 6.8 A* (12.0-15.0) g/dL Hct 21.1 L (37.2-46.3) % MCV 101.0 H (80.0-97.0) FL MCH 32.5 H (27.0-32.0) pg RDW 16.6 H (11.5-14.5) % Immature Gran # 0.13 H (0.00-0.04) X 10*3/uL Eosinophils # 0.78 H (0.04-0.35) X 10*3/uL NRBC/100 WBC Diff 0.03 H (0.00-0.01) X 10*3/uL Sodium 125 L (135-145) mmol/L Potassium 6.0 H (3.5-5.5) mmol/L Chloride 85 L (96-109) mmol/L Anion Gap 16.30 H (4.00-12.00) mmol/L BUN 36.5 H (9.0-27.0) mg/dL Creatinine 4.3 H (0.6-1.5) mg/dL Est GFR (CKD-EPI) 13 L (>=60) BUN/Creatinine Ratio 8.49 L (12.00-20.00) Ratio Glucose 317 H (70-110) mg/dL POC Glucose (mg/dL) 151 H (70-110) mg/dL Calcium 8.6 L (8.7-10.3) mg/dL ALT 241 H (8-44) U/L Alkaline Phosphatase 229 H (41-126) U/L Total Protein 6.1 L (6.2-8.2) g/dL Urine Appearance (Clear) Urine Protein (Negative) Urine Glucose (UA) (Negative) Ur Leukocyte Esterase (Negative) Urine WBC (0-5) /hpf Urine Bacteria (None) /hpf Urine Mucus (None) /hpf Crossmatch 11/04/24 11/04/24 11/04/24 Range/Units 13:22 13:38 15:49 WBC (4.50-10.00) X 10*3/uL RBC (4.10-5.20) X 10*6/uL Hgb (12.0-15.0) g/dL Hct (37.2-46.3) % MCV (80.0-97.0) FL MCH (27.0-32.0) pg RDW (11.5-14.5) % Immature Gran # (0.00-0.04) X 10*3/uL Eosinophils # (0.04-0.35) X 10*3/uL NRBC/100 WBC Diff (0.00-0.01) X 10*3/uL Sodium (135-145) mmol/L Potassium (3.5-5.5) mmol/L Chloride (96-109) mmol/L Anion Gap (4.00-12.00) mmol/L BUN (9.0-27.0) mg/dL Creatinine (0.6-1.5) mg/dL Est GFR (CKD-EPI) (>=60) BUN/Creatinine Ratio (12.00-20.00) Ratio Glucose (70-110) mg/dL POC Glucose (mg/dL) 131 H (70-110) mg/dL Calcium (8.7-10.3) mg/dL ALT (8-44) U/L Alkaline Phosphatase (41-126) U/L Total Protein (6.2-8.2) g/dL Urine Appearance Cloudy H (Clear) Urine Protein 3+ H (Negative) Urine Glucose (UA) 3+ H (Negative) Ur Leukocyte Esterase Trace H (Negative) Urine WBC 22 H (0-5) /hpf Urine Bacteria Rare H (None) /hpf Urine Mucus Rare H (None) /hpf Crossmatch See Detail 11/04/24 11/04/24 11/04/24 Range/Units 16:57 17:35 18:15 WBC (4.50-10.00) X 10*3/uL RBC (4.10-5.20) X 10*6/uL Hgb (12.0-15.0) g/dL Hct (37.2-46.3) % MCV (80.0-97.0) FL MCH (27.0-32.0) pg RDW (11.5-14.5) % Immature Gran # (0.00-0.04) X 10*3/uL Eosinophils # (0.04-0.35) X 10*3/uL NRBC/100 WBC Diff (0.00-0.01) X 10*3/uL Sodium (135-145) mmol/L Potassium (3.5-5.5) mmol/L Chloride (96-109) mmol/L Anion Gap (4.00-12.00) mmol/L BUN (9.0-27.0) mg/dL Creatinine (0.6-1.5) mg/dL Est GFR (CKD-EPI) (>=60) BUN/Creatinine Ratio (12.00-20.00) Ratio Glucose (70-110) mg/dL POC Glucose (mg/dL) 499 H 572 H* 525 H* (70-110) mg/dL Calcium (8.7-10.3) mg/dL ALT (8-44) U/L Alkaline Phosphatase (41-126) U/L Total Protein (6.2-8.2) g/dL Urine Appearance (Clear) Urine Protein (Negative) Urine Glucose (UA) (Negative) Ur Leukocyte Esterase (Negative) Urine WBC (0-5) /hpf Urine Bacteria (None) /hpf Urine Mucus (None) /hpf Crossmatch 11/04/24 11/05/24 11/05/24 Range/Units 19:51 01:41 06:15 WBC (4.50-10.00) X 10*3/uL RBC (4.10-5.20) X 10*6/uL Hgb (12.0-15.0) g/dL Hct (37.2-46.3) % MCV (80.0-97.0) FL MCH (27.0-32.0) pg RDW (11.5-14.5) % Immature Gran # (0.00-0.04) X 10*3/uL Eosinophils # (0.04-0.35) X 10*3/uL NRBC/100 WBC Diff (0.00-0.01) X 10*3/uL Sodium (135-145) mmol/L Potassium (3.5-5.5) mmol/L Chloride (96-109) mmol/L Anion Gap (4.00-12.00) mmol/L BUN (9.0-27.0) mg/dL Creatinine (0.6-1.5) mg/dL Est GFR (CKD-EPI) (>=60) BUN/Creatinine Ratio (12.00-20.00) Ratio Glucose (70-110) mg/dL POC Glucose (mg/dL) 557 H* 327 H 306 H (70-110) mg/dL Calcium (8.7-10.3) mg/dL ALT (8-44) U/L Alkaline Phosphatase (41-126) U/L Total Protein (6.2-8.2) g/dL Urine Appearance (Clear) Urine Protein (Negative) Urine Glucose (UA) (Negative) Ur Leukocyte Esterase (Negative) Urine WBC (0-5) /hpf Urine Bacteria (None) /hpf Urine Mucus (None) /hpf Crossmatch Assessment and Plan Plan: Assessment: 1. End-stage renal disease maintained on hemodialysis on Wednesday schedule. Has permacath. Has a maturing left upper extremity AV fistula. 2. Acute hypoxic respiratory failure. Improved. 3. Volume overload. Improved with ultrafiltration. 4. Anemia of chronic kidney disease. Status post blood transfusion this ad mission. Also received IV DDAVP. 5. Hypertensive emergency. Improved. 6. Chronic kidney disease mineral bone disease. Calcium level now normal. Phosphorus level 2.6. 7. Left arm numbness. Recent access surgery. Vascular surgery following. Ultrasound negative. Plan: Hemodialysis tomorrow. Maintain fluid restriction. Add Aranesp.
[2024-11-05 11:42] LABS: Glucose,Whole Blood 174 mg/dL (70-110)
[2024-11-05] MEDS: DARBEPOETIN ALFA 40 MCG/0.4 ML SYRINGE SQ SCH (12:37)
[2024-11-05 13:21] LABS: Anisocytosis Slight; Basophils # (A) 0.1 k/uL (0-0.2); Basophils % (A) 1 %; Eosinophils % (A) 20 %; HCT 24.7 % (34.0-46.0); Hypochromasia Slight; Lymphocytes # (A) 1.5 k/uL (1.0-4.8); Lymphocytes % (A) 15 %; MCH 32.2 pg (25.0-35.0); MCHC 32.3 g/dL (31.0-37.0); MCV 99.8 fL (80.0-100.0); Macrocytosis Slight; Mean Platelet Volume 7.4; Monocytes # (A) 0.6 k/uL (0-1.0); Monocytes % (A) 6 %; Neutrophils # (A) 5.6 k/uL (1.3-7.7); Neutrophils % (A) 57 %; Platelet Count 354 k/uL (150-450); RBC 2.48 m/uL (3.80-5.40)
--- NOTE | 2024-11-05 13:30 | P.PN ---
Subjective Progress Note Date: 11/05/24 Subjective: Patient seen and examined at bedside. No acute events overnight. Patient claims that she feels fatigued. Pertinent positives and negatives as discussed above, a complete review of systems was performed and all other systems are negative. Vitals Signs Reviewed. General: Nontoxic, no distress, appears at stated age, chronically ill-appearing Derm: Warm, dry Head: Atraumatic, normocephalic, symmetric Eyes: EOMI, no lid lag, anicteric sclera Mouth: No lip lesion, mucus membranes moist Cardiovascular: S1S2 reg, no murmur, left arm fistula Lungs: CTA bilateral, no rhonchi, no rales, no accessory muscle use Abdominal: Soft, nontender to palpation, no guarding, no appreciable organomegaly Ext: No gross muscle atrophy, no edema, no contractures Neuro: CN II-XI grossly intact, no focal neuro deficits Psych: Alert, oriented, appropriate affect Data Reviewed Today: Pertinent Labs: Blood sugars range between 1 74-3 27 Imaging: Left upper extremity venous Doppler did not show any organizing fluid collection, patent graft Assessment and Plan: Active: Hypertensive emergency on presentation, resolved Uncontrolled hypertension Acute hypoxic respiratory failure, resolved Acute pulmonary edema, resolved Hypervolemia on hemodialysis ESRD on hemodialysis Hyperkalemia, resolved Hypervolemic hyponatremia -Nephrology note reviewed, continue dialysis 3 times per week, also started on darbepoetin -Continue clonidine 0.3 3 times daily, hydralazine 100 3 times daily, Imdur 120 daily, labetalol 500 twice daily, Procardia 60 twice daily Acute on chronic normocytic anemia -Likely secondary to ESRD -Status post 1 unit of PRBCs -Status post DDAVP -Repeat CBC pending Insulin-dependent diabetes on insulin pump Uncontrolled diabetes -Currently on Levemir 20 units twice daily, sliding scale insulin, monitor for hypoglycemia -Off of insulin pump, no battery available Left arm edema -Patent graft -Vascular surgery evaluated patient during this admission Resolved: Epistaxis Type II NSTEMI Chest pain Chronic: History of CVA Hypothyroidism Seizure disorder Anxiety GERD DVT ppx: Subcu heparin Code status: Full code Anticipated discharge place: Pending clinical course Anticipated discharge time: Pending clinical course Objective - Vital Signs Vital signs: Vital Signs Temp 98.5 F 11/05/24 07:10 Pulse 82 11/05/24 12:30 Resp 20 11/05/24 09:47 BP 113/67 11/05/24 12:30 Pulse Ox 98 11/05/24 07:10 FiO2 40 11/04/24 07:30 Intake & Output 11/04/24 11/05/24 11/05/24 18:59 06:59 18:59 Intake Total 310 980 100 Output Total 200 6500 Balance 110 -5520 100 Weight 61.69 kg 62.3 kg Intake: Oral 480 100 Blood Product 310 Rc As-1 Unit 310 [id number] Hemodialysis 500 Output: Urine 200 Hemodialysis 3500 Hemodialysis Net Amount 3000 Other: # Voids 1 2 - Labs CBC & Chem 7: 11/05/24 13:00 11/04/24 17:08 Labs: Abnormal Lab Results - Last 24 Hours (Table) 11/04/24 11/04/24 11/04/24 Range/Units 13:22 13:38 15:49 RBC (3.80-5.40) m/uL Hgb (11.4-16.0) gm/dL Hct (34.0-46.0) % RDW (11.5-15.5) % Eosinophils # (0-0.7) k/uL POC Glucose (mg/dL) 131 H (70-110) mg/dL Urine Appearance Cloudy H (Clear) Urine Protein 3+ H (Negative) Urine Glucose (UA) 3+ H (Negative) Ur Leukocyte Esterase Trace H (Negative) Urine WBC 22 H (0-5) /hpf Urine Bacteria Rare H (None) /hpf Urine Mucus Rare H (None) /hpf Crossmatch See Detail 11/04/24 11/04/24 11/04/24 Range/Units 16:57 17:35 18:15 RBC (3.80-5.40) m/uL Hgb (11.4-16.0) gm/dL Hct (34.0-46.0) % RDW (11.5-15.5) % Eosinophils # (0-0.7) k/uL POC Glucose (mg/dL) 499 H 572 H* 525 H* (70-110) mg/dL Urine Appearance (Clear) Urine Protein (Negative) Urine Glucose (UA) (Negative) Ur Leukocyte Esterase (Negative) Urine WBC (0-5) /hpf Urine Bacteria (None) /hpf Urine Mucus (None) /hpf Crossmatch 11/04/24 11/05/24 11/05/24 Range/Units 19:51 01:41 06:15 RBC (3.80-5.40) m/uL Hgb (11.4-16.0) gm/dL Hct (34.0-46.0) % RDW (11.5-15.5) % Eosinophils # (0-0.7) k/uL POC Glucose (mg/dL) 557 H* 327 H 306 H (70-110) mg/dL Urine Appearance (Clear) Urine Protein (Negative) Urine Glucose (UA) (Negative) Ur Leukocyte Esterase (Negative) Urine WBC (0-5) /hpf Urine Bacteria (None) /hpf Urine Mucus (None) /hpf Crossmatch 11/05/24 11/05/24 Range/Units 11:41 13:00 RBC 2.48 L (3.80-5.40) m/uL Hgb 8.0 L (11.4-16.0) gm/dL Hct 24.7 L (34.0-46.0) % RDW 19.0 H (11.5-15.5) % Eosinophils # 2.0 H (0-0.7) k/uL POC Glucose (mg/dL) 174 H (70-110) mg/dL Urine Appearance (Clear) Urine Protein (Negative) Urine Glucose (UA) (Negative) Ur Leukocyte Esterase (Negative) Urine WBC (0-5) /hpf Urine Bacteria (None) /hpf Urine Mucus (None) /hpf Crossmatch
[2024-11-05 13:36] LABS: ALT 165 U/L (4-34); AST 31 U/L (14-36); African American GFR (CKD) 15 (>60 ml/min/1.73 sqM); Albumin 4.3 g/dL (3.5-5.0); Albumin/Globulin Ratio 1.7; Alkaline Phosphatase 219 U/L (38-126); Anion Gap 14 mmol/L; Blood Urea Nitrogen 33 mg/dL (7-17); Calcium 9.2 mg/dL (8.4-10.2); Carbon Dioxide 26 mmol/L (22-30); Chloride 90 mmol/L (98-107); Globulin 2.5 g/dL; Glucose 150 mg/dL (74-99); Magnesium 1.8 mg/dL (1.6-2.3); Non-African American GFR(CKD) 13 (>60 ml/min/1.73 sqM); Potassium 4.8 mmol/L (3.5-5.1); Sodium 130 mmol/L (137-145); Total Bilirubin 0.4 mg/dL (0.2-1.3); Total Protein 6.8 g/dL (6.3-8.2)
--- NOTE | 2024-11-05 14:39 | P.DS ---
Providers Date of admission: 11/02/24 07:48 Expected date of discharge: 11/05/24 Attending physician: Omar Graham Consults: 11/02/24 06:42 Consult Physician Urgent Consulting Provider: Gary Andrade Consult Reason/Comments: dialysis, volume overload Do you want consulting provider notified?: Already Contacted 11/02/24 13:21 Consult Physician Urgent Consulting Provider: Jamal Seay Consult Reason/Comments: hypertensive urgency Do you want consulting provider notified?: Already Contacted 11/04/24 00:04 Consult Physician Urgent Consulting Provider: Kristopher Yarbrough Consult Reason/Comments: Graft reddness Do you want consulting provider notified?: Yes Primary care physician: Stated None Hospital Course: Discharge Diagnosis: Hypertensive emergency on presentation, resolved Uncontrolled hypertension Acute hypoxic respiratory failure, resolved Acute pulmonary edema, resolved Hypervolemia on hemodialysis ESRD on hemodialysis Hyperkalemia, resolved Hypervolemic hyponatremia Acute on chronic normocytic anemia Insulin-dependent diabetes on insulin pump Uncontrolled diabetes Left arm edema Resolved: Epistaxis Type II NSTEMI Chest pain History of CVA Hypothyroidism Seizure disorder Anxiety GERD Hospital Course: 34-year-old female with past medical history of ESRD on hemodialysis ([facility] hypertension, history of CVA in November 2023, insulin-dependent diabetes mellitus, seizure disorder, hypothyroidism, anxiety, GERD presents to the emergency department for hypertension, chest pain, and dyspnea. Initial EKG independently interpreted: Sinus tachycardia no significant ST-T wave changes Initial chest x-ray independently interpreted: Bilateral interstitial opacities Initial labs: WBC 22, hemoglobin 8.6, hematocrit 26.2, platelets 447, PT 11.2, INR 1, APTT 26.3, sodium 135, potassium 5, chloride 92, CO2 24, BUN 70, creatinine 6.25, glucose 119, lactic acid 1.5, calcium 10.5, magnesium 1.6, AST 121, ALT 363, alkaline phosphatase 365, troponin X1 0.074, BNP 38,800. Initial vitals: BP 206/128, HI 128, RR 28, 100% oxygen saturation on CPAP. Blood pressure improved with antihypertensives. Was continued on hemodialysis. Patient's hemoglobin also went down below 7, and had 1 unit of PRBC. Outpatient follow-up with PCP and director workforce management. Patient seen and examined at bedside. Vital signs reviewed and stable. General: Nontoxic, no distress, appears at stated age, chronically ill-appearing Derm: Warm, dry Head: Atraumatic, normocephalic, symmetric Eyes: EOMI, no lid lag, anicteric sclera Mouth: No lip lesion, mucus membranes moist Cardiovascular: S1S2 reg, no murmur, left arm fistula Lungs: CTA bilateral, no rhonchi, no rales, no accessory muscle use Abdominal: Soft, nontender to palpation, no guarding, no appreciable organomegaly Ext: No gross muscle atrophy, no edema, no contractures Neuro: CN II-XI grossly intact, no focal neuro deficits Psych: Alert, oriented, appropriate affect A total of 33 minutes of time were spent preparing this complex discharge summary. Patient was discharged on 11/05/2024 at 1435. Patient Condition at Discharge: Stable Plan - Discharge Summary New Discharge Prescriptions: Continue Magnesium Hydroxide [Milk of Magnesia Concentrate] 7,200 mg PO DAILY PRN PRN Reason: Constipation Lidocaine 4% Patch 1 patch TOPICAL DAILY@0800 Ipratropium-Albuterol Nebulize [Duoneb 0.5 mg-3 mg/3 ml Soln] 3 ml INHALATION RT-TID PRN each PRN Reason: Shortness Of Breath Or Wheezing Biotene Dry Mouth/Throat 10 ml PO BID PRN PRN Reason: DRY MOUTH/THROAT Acetaminophen [Tylenol] 650 mg PO Q4H PRN PRN Reason: Pain Or Fever > 100.5 Darbepoetin Artur [Aranesp] 40 mcg SQ MO Loratadine [Claritin] 5 mg PO DAILY tab Sertraline [Zoloft] 200 mg PO DAILY@0800 ALPRAZolam [Xanax] 0.25 mg PO BID PRN PRN Reason: Anxiety cloNIDine HCL [Catapres] 0.3 mg PO TID Colchicine [Colcrys] 0.3 mg PO DAILY #15 each Isosorbide Mononitrate ER [Imdur] 120 mg PO DAILY #60 tab Insulin Aspart (For Pump) [NovoLOG (For Pump)] 0.01 unit SQ-PUMP CONTINUOUS Ondansetron Odt [Zofran ODT] 4 mg PO Q8HR PRN PRN Reason: Nausea And Vomiting Docusate [Colace] 100 mg PO DAILY@0800 polyethylene glycoL 3350 [Miralax] 17 gm PO AC-LUNCH #527 gm Melatonin 1 mg PO HS tab Butalb/APAP/Caff 50-325-40Mg [Fioricet 50-325-40] 1 tab PO Q4HR PRN PRN Reason: Headache Aspirin 81 mg PO DAILY@0800 #30 tab Famotidine [Pepcid] 20 mg PO BID #60 tab Atorvastatin [Lipitor] 40 mg PO DIRECTED Divalproex ER [Depakote ER] 500 mg PO BID@0800,1700 Levothyroxine Sodium [Synthroid] 175 mcg PO DAILY@0600 Metoclopramide [Reglan] 5 mg PO AC-TID PRN PRN Reason: Nausea Pantoprazole [Protonix] 40 mg PO DAILY@0600 traZODone HCL [Desyrel] 50 mg PO HS Calcium Acetate [PhosLo] 2,001 mg PO TID-W/MEALS Calcium Acetate [PhosLo] 667 mg PO DAILY PRN PRN Reason: W/SNACK hydrALAZINE HCL [Apresoline] 100 mg PO TID #90 tab NIFEdipine XL [Procardia XL] 60 mg PO BID #60 tab Labetalol [Trandate] 500 mg PO BID #150 tab Triphrocaps 1mg Cap 1 cap PO DAILY Gabapentin [Neurontin] 600 mg PO TID oxyCODONE-APAP 10-325MG [Percocet 10-325 mg] 1 tab PO Q4HR PRN PRN Reason: Pain SCALE 6-10 Discharge Medication List Docusate [Colace] 100 mg PO DAILY@0800 02/05/24 [History] Lidocaine 4% Patch 1 patch TOPICAL DAILY@0800 02/05/24 [History] Magnesium Hydroxide [Milk of Magnesia Concentrate] 7,200 mg PO DAILY PRN 02/05/24 [History] Ipratropium-Albuterol Nebulize [Duoneb 0.5 mg-3 mg/3 ml Soln] 3 ml INHALATION RT-TID PRN each 02/14/24 [Rx] polyethylene glycoL 3350 [Miralax] 17 gm PO AC-LUNCH #527 gm 02/14/24 [Rx] Acetaminophen [Tylenol] 650 mg PO Q4H PRN 02/18/24 [History] Biotene Dry Mouth/Throat 10 ml PO BID PRN 02/18/24 [History] Melatonin 1 mg PO HS tab 02/25/24 [Rx] Butalb/APAP/Caff 50-325-40Mg [Fioricet 50-325-40] 1 tab PO Q4HR PRN 03/14/24 [History] Darbepoetin Artur [Aranesp] 40 mcg SQ MO 03/14/24 [History] Loratadine [Claritin] 5 mg PO DAILY tab 03/30/24 [Rx] Aspirin 81 mg PO DAILY@0800 #30 tab 05/18/24 [Rx] Famotidine [Pepcid] 20 mg PO BID #60 tab 07/11/24 [Rx] Atorvastatin [Lipitor] 40 mg PO DIRECTED 08/14/24 [History] Divalproex ER [Depakote ER] 500 mg PO BID@0800,1700 08/14/24 [History] Levothyroxine Sodium [Synthroid] 175 mcg PO DAILY@0600 08/14/24 [History] Metoclopramide [Reglan] 5 mg PO AC-TID PRN 08/14/24 [History] Pantoprazole [Protonix] 40 mg PO DAILY@0600 08/14/24 [History] Sertraline [Zoloft] 200 mg PO DAILY@0800 08/14/24 [History] traZODone HCL [Desyrel] 50 mg PO HS 08/14/24 [History] ALPRAZolam [Xanax] 0.25 mg PO BID PRN 09/04/24 [History] Calcium Acetate [PhosLo] 2,001 mg PO TID-W/MEALS 09/04/24 [History] Calcium Acetate [PhosLo] 667 mg PO DAILY PRN 09/04/24 [History] cloNIDine HCL [Catapres] 0.3 mg PO TID 09/04/24 [History] Colchicine [Colcrys] 0.3 mg PO DAILY #15 each 09/23/24 [Rx] Isosorbide Mononitrate ER [Imdur] 120 mg PO DAILY #60 tab 09/23/24 [Rx] Labetalol [Trandate] 500 mg PO BID #150 tab 09/23/24 [Rx] NIFEdipine XL [Procardia XL] 60 mg PO BID #60 tab 09/23/24 [Rx] hydrALAZINE HCL [Apresoline] 100 mg PO TID #90 tab 09/23/24 [Rx] Triphrocaps 1mg Cap 1 cap PO DAILY 10/10/24 [History] Gabapentin [Neurontin] 600 mg PO TID 11/02/24 [History] Insulin Aspart (For Pump) [NovoLOG (For Pump)] 0.01 unit SQ-PUMP CONTINUOUS 11/02/24 [History] Ondansetron Odt [Zofran ODT] 4 mg PO Q8HR PRN 11/02/24 [History] oxyCODONE-APAP 10-325MG [Percocet 10-325 mg] 1 tab PO Q4HR PRN 11/02/24 [History] Follow up Appointment(s)/Referral(s): [facility] [NON-STAFF] - 1 Week Gary Andrade DO [STAFF PHYSICIAN] - 1 Week Patient Instructions/Handouts: Hypertensive Crisis (DC) Activity/Diet/Wound Care/Special Instructions: Please see PCP and director workforce management. Discharge Disposition: HOME SELF-CARE
[2024-11-05 14:55] VITALS: BP 106/62; PULSE 80; RESP 18; TEMP 97.9
[2024-11-06] MEDS ORDERED: INSULIN DETEMIR (LEVEMIR) 100 UNIT/ML SYR SQ SCH (07:00)
== END 2024-11-05 15:36 | disposition home or self-care (01) | DRG 280 ==
LOC: EC 06:35 → 3SCARD 07:48 → 2SICU 13:15 → 3SCARD 11-03 06:04 → 5NMEDONC 11-03 10:52 → 4SSUR 11-04 15:56
PROVIDERS: ADMIT Student in an Organized Health Care Education/Training Program; ATTEND Student in an Organized Health Care Education/Training Program
PROC: 5A1D70Z Performance of Urinary Filtration, Intermittent, Less than 6 Hours Per Day (ICD-10-PCS; principal; 2024-11-02)
PROC: 5A09357 Assistance with Respiratory Ventilation, Less than 24 Consecutive Hours, Continuous Positive Airway Pressure (ICD-10-PCS; 2024-11-02)
PROC: 30233N1 Transfusion of Nonautologous Red Blood Cells into Peripheral Vein, Percutaneous Approach (ICD-10-PCS; 2024-11-04)
DX: I16.1 Hypertensive emergency (principal); J81.0 Acute pulmonary edema; I21.A1 Myocardial infarction type 2; J96.01 Acute respiratory failure with hypoxia; N18.6 End stage renal disease; E87.1 Hypo-osmolality and hyponatremia; I12.0 Hypertensive chronic kidney disease with stage 5 chronic kidney disease or end stage renal disease; E87.70 Fluid overload, unspecified; Z99.2 Dependence on renal dialysis; E87.5 Hyperkalemia; E11.22 Type 2 diabetes mellitus with diabetic chronic kidney disease; R04.0 Epistaxis; Z86.73 Personal history of transient ischemic attack (TIA), and cerebral infarction without residual deficits; E03.9 Hypothyroidism, unspecified; G40.909 Epilepsy, unspecified, not intractable, without status epilepticus; F41.9 Anxiety disorder, unspecified; K21.9 Gastro-esophageal reflux disease without esophagitis; E07.9 Disorder of thyroid, unspecified; G89.29 Other chronic pain; D63.1 Anemia in chronic kidney disease; F32.A Depression, unspecified; F17.210 Nicotine dependence, cigarettes, uncomplicated; R74.01 Elevation of levels of liver transaminase levels; G44.209 Tension-type headache, unspecified, not intractable; M10.9 Gout, unspecified; M89.8X9 Other specified disorders of bone, unspecified site; Z79.890 Hormone replacement therapy; Z79.4 Long term (current) use of insulin; Z79.82 Long term (current) use of aspirin; Z88.8 Allergy status to other drugs, medicaments and biological substances; Z88.6 Allergy status to analgesic agent; Z79.899 Other long term (current) drug therapy; Z96.41 Presence of insulin pump (external) (internal); Z91.030 Bee allergy status
CPT/HCPCS: 36415; 71045; 76705; 80053; 81001; 82728; 83540; 83550; 83605; 83735; 83880; 84100; 84132; 84484; 85025; 85610; 85730; 86850; 86900; 86901; 86920; 90935; 93005; 94640; 94660; 94760; 96365; 96366; 96367; 96375; 99291

== ENCOUNTER 2024-11-09 08:53 | Emergency (ER) | payer MEDICARE ==
--- NOTE | 2024-11-09 09:15 | ED ---
Recheck HPI - General Chief Complaint: Recheck/Abnormal Lab/Rx Stated Complaint: Arm pain Time Seen by Provider: 11/09/24 09:12 Source: patient, EMS, RN notes reviewed, old records reviewed Mode of arrival: EMS Limitations: no limitations - History of Present Illness Initial Comments: 34-year-old female with a past medical history of end-stage renal disorder on dialysis, diabetes mellitus, thyroid disorder and seizure disorder presenting to the ER for evaluation of left forearm/hand pain. Patient reports approximately 1 month ago she underwent a dialysis graft placement by Dr. Razo. This morning upon waking she noticed her left hand was numb and extremely painful. She also is reporting pain to the forearm and elbow. Patient states her left hand has been swelling since procedure 1 month ago. She went to dialysis this morning and only had an hour and a half left when she had to stop treatment and come to the ER for evaluation. Patient is concerned of infection. Patient was given Tylenol for pain control at dialysis. She denies any fevers, chills, nausea, vomiting, chest pain, shortness of breath, abdominal pain, urinary complaints, constipation/diarrhea or peripheral edema. Patient typically attends dialysis 4 days a week. - Related Data Home Medications Medication Instructions Recorded Confirmed Docusate [Colace] 100 mg PO DAILY@0800 02/05/24 11/09/24 Lidocaine 4% Patch 1 patch TOPICAL DAILY@0800 02/05/24 11/09/24 Magnesium Hydroxide [Milk of 7,200 mg PO DAILY PRN 02/05/24 11/09/24 Magnesia Concentrate] Acetaminophen [Tylenol] 650 mg PO Q4H PRN 02/18/24 11/09/24 Biotene Dry Mouth/Throat 10 ml PO BID PRN 02/18/24 11/09/24 Butalb/APAP/Caff 50-325-40Mg 1 tab PO Q4HR PRN 03/14/24 11/09/24 [Fioricet 50-325-40] Darbepoetin Artur [Aranesp] 40 mcg SQ MO 03/14/24 11/09/24 Atorvastatin [Lipitor] 40 mg PO DIRECTED 08/14/24 11/09/24 Divalproex ER [Depakote ER] 500 mg PO BID@0800,1700 08/14/24 11/09/24 Levothyroxine Sodium [Synthroid] 175 mcg PO DAILY@0600 08/14/24 11/09/24 Metoclopramide [Reglan] 5 mg PO AC-TID PRN 08/14/24 11/09/24 Pantoprazole [Protonix] 40 mg PO DAILY@0600 08/14/24 11/09/24 Sertraline [Zoloft] 200 mg PO DAILY@0800 08/14/24 11/09/24 traZODone HCL [Desyrel] 50 mg PO HS 08/14/24 11/09/24 ALPRAZolam [Xanax] 0.25 mg PO BID PRN 09/04/24 11/09/24 Calcium Acetate [PhosLo] 2,001 mg PO TID-W/MEALS 09/04/24 11/09/24 Calcium Acetate [PhosLo] 667 mg PO DAILY PRN 09/04/24 11/09/24 cloNIDine HCL [Catapres] 0.3 mg PO TID 09/04/24 11/09/24 Triphrocaps 1mg Cap 1 cap PO DAILY 10/10/24 11/09/24 Gabapentin [Neurontin] 600 mg PO TID 11/02/24 11/09/24 Insulin Aspart (For Pump) [NovoLOG 0.01 unit SQ-PUMP CONTINUOUS 11/02/24 11/09/24 (For Pump)] Ondansetron Odt [Zofran ODT] 4 mg PO Q8HR PRN 11/02/24 11/09/24 oxyCODONE-APAP 10-325MG [Percocet 1 tab PO Q4HR PRN 11/02/24 11/09/24 10-325 mg] Previous Rx's Medication Instructions Recorded Ipratropium-Albuterol Nebulize 3 ml INHALATION RT-TID PRN each 02/14/24 [Duoneb 0.5 mg-3 mg/3 ml Soln] polyethylene glycoL 3350 [Miralax] 17 gm PO AC-LUNCH #527 gm 02/14/24 Melatonin 1 mg PO HS tab 02/25/24 Loratadine [Claritin] 5 mg PO DAILY tab 03/30/24 Aspirin 81 mg PO DAILY@0800 #30 tab 05/18/24 Famotidine [Pepcid] 20 mg PO BID #60 tab 07/11/24 Colchicine [Colcrys] 0.3 mg PO DAILY #15 each 09/23/24 Isosorbide Mononitrate ER [Imdur] 120 mg PO DAILY #60 tab 09/23/24 Labetalol [Trandate] 500 mg PO BID #150 tab 09/23/24 NIFEdipine XL [Procardia XL] 60 mg PO BID #60 tab 09/23/24 hydrALAZINE HCL [Apresoline] 100 mg PO TID #90 tab 09/23/24 Allergies Allergy/AdvReac Type Severity Reaction Status Date / Time hydromorphone HCl Allergy Anaphylaxis Verified 11/09/24 10:23 [From Dilaudid] propoxyphene Allergy Rash/Hives Verified 11/09/24 10:23 [From Darvocet-N] tramadol Allergy Anaphylaxis Verified 11/09/24 10:23 ibuprofen [From Motrin] AdvReac unable to Verified 11/09/24 10:23 take due to kidney disease venom-honey bee AdvReac passes out Verified 11/09/24 10:23 [bee venom (honey bee)] Review of Systems ROS Statement: Those systems with pertinent positive or pertinent negative responses have been documented in the HPI. ROS Other: All systems not noted in ROS Statement are negative. 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 Past Anesthesia/Blood Transfusion Reactions: Previous Problems w/ Anesthesia Additional Past Anesthesia/Blood Transfusion Reaction / Comment(s): confusion Past Psychological History: Anxiety, Depression Smoking Status: Current every day smoker Past Alcohol Use History: None Reported Past Drug Use History: Marijuana, Methamphetamine - Past Family History Father History Unknown: Yes Family Medical History: Unable to Obtain Mother History Unknown: Yes Family Medical History: No Reported History Grandfather History Unknown: Yes Family Medical History: Coronary Artery Disease (CAD) Additional Family Medical History / Comment(s): Diabetes mellitus type 2 General Exam Limitations: no limitations General appearance: alert, in no apparent distress, other (Patient crying hold ing left forearm) Respiratory exam: Present: normal lung sounds bilaterally. Absent: respiratory distress, wheezes, rales, rhonchi, stridor Cardiovascular Exam: Present: regular rate, normal rhythm, normal heart sounds. Absent: systolic murmur, diastolic murmur, rubs, gallop, clicks Extremities exam: Present: tenderness ( 2+ left radial pulse. Left forearm and hand ulnar aspect. No overlying skin changes. Patient has full range of motion), other (Left forearm has healing surgical incisions. There is no erythema or purulent drainage present. Left forearm and hand that are mildly edematous.) Neurological exam: Present: alert, oriented X3, CN II-XII intact Skin exam: Present: warm, dry, intact, normal color. Absent: rash Course Vital Signs 11/09/24 11/09/24 11/09/24 08:57 10:16 12:15 Temperature 98.5 F 98.7 F Pulse Rate 84 76 68 Respiratory 18 20 20 Rate Blood Pressure 117/68 99/56 110/65 O2 Sat by Pulse 99 99 98 Oximetry - Reevaluation(s) Reevaluation #1: 11/09/24 11:35 Case discussed with on-call vascular, Dr. Razo. She stated patient has been recently admitted and seen multiple times within the past couple of weeks. She reviewed ultrasound and laboratory studies herself and states patient can be discharged with outpatient management. Medical Decision Making - Medical Decision Making Was pt. sent in by a medical professional or institution (, PA, TANK TRUCK DRIVER, urgent care, hospital, or [place] health care facility...) When possible be specific @ -No Did you speak to anyone other than the patient for history (EMS, parent, family, police, friend...)? What history was obtained from this source @ -No Did you review nursing and triage notes (agree or disagree)? Why? @ -I reviewed and agree with nursing and triage notes Were old charts reviewed (outside hosp., previous admission, EMS record, old EKG, old radiological studies, urgent care reports/EKG's, [place] health care facility records)? Report findings @ -Yes, I reviewed recent admissions and procedure completed on 10-19-2024. Differential Diagnosis (chest pain, altered mental status, abdominal pain women, abdominal pain men, vaginal bleeding, weakness, fever, dyspnea, syncope, headache, dizziness, GI bleed, back pain, seizure, CVA, palpatations, mental health, musculoskeletal)? @ -Differential Musculoskeletal: Muscular strain, contusion, ligament sprain, fracture, arthritis, septic arthritis, bursitis, cellulitis, muscle spasm, nerve compression, DVT, arterial occlusion, herpes zoster, electrolyte abnormality, tumor.... This is not meant to be in all inclusive list EKG interpreted by me (3pts min.). @ -None done X-rays interpreted by me (1pt min.). @ -None done CT interpreted by me (1pt min.). @ -None done U/S interpreted by me (1pt. min.). @ -[Ultrasound focused of left forearm showing patency of graft in the left forearm. Exam was not tailored to assess anastomotic sites. What testing was considered but not performed or refused? (CT, X-rays, U/S, labs)? Why? @ -None What meds were considered but not given or refused? Why? @ -None Did you discuss the management of the patient with other professionals (professionals i.e. , PA, TANK TRUCK DRIVER, lab, RT, psych nurse, vp digital marketing social media and crm, russian language instructor, teacher, structural engineering drafting officer, foster care case manager)? Give summary @ -Yes, I discussed his case with on-call vascular surgery, Dr. Razo. She advised on pain control and outpatient follow-up. Was smoking cessation discussed for >3mins.? @ -No Was critical care preformed (if so, how long)? @ -No Were there social determinants of health that impacted care today? How? (Homelessness, low income, unemployed, alcoholism, drug addiction, transportati on, low edu. Level, literacy, decrease access to med. care, skilled nursing, rehab)? @ -No Was there de-escalation of care discussed even if they declined (Discuss DNR or withdrawal of care, Hospice)? DNR status @ -No What co-morbidities impacted this encounter? (DM, HTN, Smoking, COPD, CAD, Cancer, CVA, ARF, Chemo, Hep., AIDS, mental health diagnosis, sleep apnea, morbid obesity)? @ -End-stage renal disease on dialysis Was patient admitted / discharged? Hospital course, mention meds given and route, prescriptions, significant lab abnormalities, going to OR and other pertinent info. @ -Discharge. 34-year-old female presented to the ER for evaluation of left forearm and hand pain. Patient underwent dialysis graft repair by Dr. Razo on 10-19-2024. Upon evaluation, patient is extremely anxious and tearful on exam no signs of acute respiratory distress. Left upper extremity is mildly edematous but neurovascularly intact. Surgical incisions appear well healing without signs of infection. Laboratory studies obtained appear to be at patient's baseline. Ultrasound left forearm showing patency of graft. Case was discussed with on-call vascular, Dr. Razo who advised on outpatient management. Symptomatic control in the ER. Patient is stable for discharge upon reevaluation. Strict return parameters discussed. Patient discharged in stable condition with follow-up to PCP. Patient verbally expressed understanding and agreement with care plan. Case discussed with ED attending, Dr. Zepeda. Undiagnosed new problem with uncertain prognosis? @ -No Drug Therapy requiring intensive monitoring for toxicity (Heparin, Nitro, Insulin, Cardizem)? @ -No Were any procedures done? @ -No Diagnosis/symptom? @ -Left arm pain status post dialysis graft Acute, or Chronic, or Acute on Chronic? @ -Acute Uncomplicated (without systemic symptoms) or Complicated (systemic symptoms)? @ -Uncomplicated Side effects of treatment? @ -No Exacerbation, Progression, or Severe Exacerbation? @ -No Poses a threat to life or bodily function? How? (Chest pain, [place], [place], pneumonia, PE, COPD, DKA, ARF, appy, cholecystitis, CVA, Diverticulitis, Homicidal, Suicidal, threat to staff... and all critical care pts) @ -No - Lab Data Result diagrams: 11/09/24 09:11/09/24 09:27 Lab Results 11/09/24 11/09/24 11/09/24 Range/Units 09: 09: 09:27 WBC 14.8 H (3.8-10.6) k/uL RBC 2.72 L (3.80-5.40) m/uL Hgb 8.9 L (11.4-16.0) gm/dL Hct 26.9 L (34.0-46.0) % MCV 98.6 (80.0-100.0) fL MCH 32.7 (25.0-35.0) pg MCHC 33.1 (31.0-37.0) g/dL RDW 20.0 H (11.5-15.5) % Plt Count 320 (150-450) k/uL MPV 7.4 Neutrophils % 76 % Lymphocytes % 7 % Monocytes % 4 % Eosinophils % 12 % Basophils % 0 % Neutrophils # 11.2 H (1.3-7.7) k/uL Lymphocytes # 1.1 (1.0-4.8) k/uL Monocytes # 0.6 (0-1.0) k/uL Eosinophils # 1.8 H (0-0.7) k/uL Basophils # 0.1 (0-0.2) k/uL Hypochromasia Slight Anisocytosis Moderate Macrocytosis Moderate Sodium 133 L (137-145) mmol/L Potassium 3.9 (3.5-5.1) mmol/L Chloride 90 L (98-107) mmol/L Carbon Dioxide 33 H (22-30) mmol/L Anion Gap 10 mmol/L BUN 29 H (7-17) mg/dL Creatinine 3.62 H (0.52-1.04) mg/dL Est GFR (CKD-EPI)AfAm 18 (>60 ml/min/1.73 sqM) Est GFR (CKD-EPI)NonAf 16 (>60 ml/min/1.73 sqM) Glucose 240 H (74-99) mg/dL Plasma Lactic Acid Christopher 1.3 (0.7-2.0) mmol/L Calcium 8.9 (8.4-10.2) mg/dL Total Bilirubin 0.7 (0.2-1.3) mg/dL AST 51 H (14-36) U/L ALT 136 H (4-34) U/L Alkaline Phosphatase 261 H (38-126) U/L Total Protein 6.4 (6.3-8.2) g/dL Albumin 4.1 (3.5-5.0) g/dL - Radiology Data Radiology results: report reviewed, image reviewed Disposition Clinical Impression: Left arm pain Disposition: HOME SELF-CARE Condition: Stable Additional Instructions: Follow-up with PCP and Dr. Razo outpatient. Return to the ER for any new or worsening symptoms. Is patient prescribed a controlled substance at d/c from ED?: No Referrals: None,Stated [Primary Care Provider] - 1-2 days Abril Razo DO [STAFF PHYSICIAN] - 1-2 days Forms: Area PCPs Time of Disposition: 12:06
[2024-11-09] MEDS: MORPHINE SULFATE 4 MG/ML SYRINGE IVP STA (09:23)
[2024-11-09 09:32] LABS: Anisocytosis Moderate; Basophils # (A) 0.1 k/uL (0-0.2); Basophils % (A) 0 %; Eosinophils # (A) 1.8 k/uL (0-0.7); Eosinophils % (A) 12 %; HCT 26.9 % (34.0-46.0); HGB 8.9 gm/dL (11.4-16.0); Hypochromasia Slight; Lymphocytes # (A) 1.1 k/uL (1.0-4.8); Lymphocytes % (A) 7 %; MCH 32.7 pg (25.0-35.0); MCHC 33.1 g/dL (31.0-37.0); MCV 98.6 fL (80.0-100.0); Macrocytosis Moderate; Mean Platelet Volume 7.4; Monocytes # (A) 0.6 k/uL (0-1.0); Monocytes % (A) 4 %; Neutrophils # (A) 11.2 k/uL (1.3-7.7); Neutrophils % (A) 76 %; Platelet Count 320 k/uL (150-450); RBC 2.72 m/uL (3.80-5.40); WBC 14.8 k/uL (3.8-10.6)
[2024-11-09 09:46] LABS: ALT 136 U/L (4-34); AST 51 U/L (14-36); African American GFR (CKD) 18 (>60 ml/min/1.73 sqM); Albumin 4.1 g/dL (3.5-5.0); Alkaline Phosphatase 261 U/L (38-126); Anion Gap 10 mmol/L; Blood Urea Nitrogen 29 mg/dL (7-17); Calcium 8.9 mg/dL (8.4-10.2); Carbon Dioxide 33 mmol/L (22-30); Chloride 90 mmol/L (98-107); Glucose 240 mg/dL (74-99); Non-African American GFR(CKD) 16 (>60 ml/min/1.73 sqM); Potassium 3.9 mmol/L (3.5-5.1); Sodium 133 mmol/L (137-145); Total Bilirubin 0.7 mg/dL (0.2-1.3); Total Protein 6.4 g/dL (6.3-8.2)
[2024-11-09] MEDS: MORPHINE SULFATE 2 MG/ML SYRINGE IVP ONE (10:13)
[2024-11-09 10:36] VITALS: RESP 20
--- NOTE | 2024-11-09 11:06 | US ---
EXAMINATION TYPE: US venous doppler duplex UE LT DATE OF EXAM: 11/09/2024 COMPARISON: NONE CLINICAL INDICATION: Female, 34 years old with history of hand /forearm pain hx dialysis graft; Pain in left hand has graft in forearm. Check for patency. TECHNIQUE: Scanned left forearm graft patency if visualized. FINDINGS AND IMPRESSION: Images show patency of the graft within the right forearm. The exam was not tailored to assess the an astomotic sites. [facility], , 11/09/2024 11:03 AM
[2024-11-09] MEDS: LORazepam 2 MG/ML INJ IV STA (11:49)
[2024-11-09] MEDS: oxyCODONE-APAP 10-325MG 1 EACH TAB PO STA (12:14)
[2024-11-09 12:16] VITALS: BP 110/65; PULSE 68; TEMP 98.7
== END 2024-11-09 12:21 | disposition home or self-care (01) ==
LOC: EC 08:53
DX: M79.602 Pain in left arm (principal); F17.200 Nicotine dependence, unspecified, uncomplicated; Z88.5 Allergy status to narcotic agent; Z88.6 Allergy status to analgesic agent; Z91.030 Bee allergy status; Z86.73 Personal history of transient ischemic attack (TIA), and cerebral infarction without residual deficits; Z99.2 Dependence on renal dialysis
CPT/HCPCS: 36415; 80053; 83605; 85025; 93971; 99284; 96374; 96375; 96376; J2060; J2270 ×2

== ENCOUNTER 2024-11-14 01:13 | Inpatient (IN) | payer MEDICARE, OTHER ==
[2024-11-14] MEDS ORDERED: NITROGLYCERIN SL TABS 0.4 MG TAB SUBLINGUAL PRN (01:23)
[2024-11-14 01:51] LABS: HCT 29.9 % (34.0-46.0); HGB 9.8 gm/dL (11.4-16.0); MCH 33.2 pg (25.0-35.0); MCHC 32.9 g/dL (31.0-37.0); MCV 100.9 fL (80.0-100.0); RBC 2.97 m/uL (3.80-5.40); WBC 17.6 k/uL (3.8-10.6)
[2024-11-14 01:52] LABS: Anisocytosis Slight; Basophils # (A) 0.1 k/uL (0-0.2); Basophils % (A) 0 %; Eosinophils # (A) 1.5 k/uL (0-0.7); Eosinophils % (A) 8 %; Hypochromasia Moderate; Lymphocytes # (A) 1.6 k/uL (1.0-4.8); Lymphocytes % (A) 9 %; Macrocytosis Moderate; Mean Platelet Volume 7.6; Monocytes # (A) 0.5 k/uL (0-1.0); Monocytes % (A) 3 %; Neutrophils # (A) 13.8 k/uL (1.3-7.7); Neutrophils % (A) 78 %; Platelet Count 345 k/uL (150-450); RDW 18.5 % (11.5-15.5)
[2024-11-14] MEDS: NITROGLYCERIN-D5W PMX 50 MG in DEXTROSE/WATER 1 250ML.BAG IV ONE (01:55)
--- NOTE | 2024-11-14 01:59 | ED ---
General Adult HPI - General Chief complaint: Shortness of Breath Stated complaint: WAQAR Time Seen by Provider: 11/14/24 01:14 Source: patient, RN notes reviewed, old records reviewed Mode of arrival: EMS Limitations: no limitations - History of Present Illness Initial comments: 34-year-old female with end-stage renal disease on hemodialysis 4 days a week. Patient brought in with respiratory distress which began today. Patient received hemodialysis today and states that she had 4 L removed. She denies central chest pain. Denies fever. History somewhat limited by respiratory distress. - Related Data Home Medications Medication Instructions Recorded Confirmed Docusate [Colace] 100 mg PO DAILY@0800 02/05/24 11/09/24 Lidocaine 4% Patch 1 patch TOPICAL DAILY@79902/05/24 11/09/24 Magnesium Hydroxide [Milk of 7,200 mg PO DAILY PRN 02/05/24 11/09/24 Magnesia Concentrate] Acetaminophen [Tylenol] 650 mg PO Q4H PRN 02/18/24 11/09/24 Biotene Dry Mouth/Throat 10 ml PO BID PRN 02/18/24 11/09/24 Butalb/APAP/Caff 50-325-40Mg 1 tab PO Q4HR PRN 03/14/24 11/09/24 [Fioricet 50-325-40] Darbepoetin Artur [Aranesp] 40 mcg SQ MO 03/14/24 11/09/24 Atorvastatin [Lipitor] 40 mg PO DIRECTED 08/14/24 11/09/24 Divalproex ER [Depakote ER] 500 mg PO BID@0800,1700 08/14/24 11/09/24 Levothyroxine Sodium [Synthroid] 175 mcg PO DAILY@0608/14/24 11/09/24 Metoclopramide [Reglan] 5 mg PO AC-TID PRN 08/14/24 11/09/24 Pantoprazole [Protonix] 40 mg PO DAILY@0600 08/14/24 11/09/24 Sertraline [Zoloft] 200 mg PO DAILY@0800 08/14/24 11/09/24 traZODone HCL [Desyrel] 50 mg PO HS 08/14/24 11/09/24 ALPRAZolam [Xanax] 0.25 mg PO BID PRN 09/04/24 11/09/24 Calcium Acetate [PhosLo] 2,001 mg PO TID-W/MEALS 09/04/24 11/09/24 Calcium Acetate [PhosLo] 667 mg PO DAILY PRN 09/04/24 11/09/24 cloNIDine HCL [Catapres] 0.3 mg PO TID 09/04/24 11/09/24 Triphrocaps 1mg Cap 1 cap PO DAILY 10/10/24 11/09/24 Gabapentin [Neurontin] 600 mg PO TID 11/02/24 11/09/24 Insulin Aspart (For Pump) [NovoLOG 0.01 unit SQ-PUMP CONTINUOUS 11/02/24 11/09/24 (For Pump)] Ondansetron Odt [Zofran ODT] 4 mg PO Q8HR PRN 11/02/24 11/09/24 oxyCODONE-APAP 10-325MG [Percocet 1 tab PO Q4HR PRN 11/02/24 11/09/24 10-325 mg] Previous Rx's Medication Instructions Recorded Ipratropium-Albuterol Nebulize 3 ml INHALATION RT-TID PRN each 02/14/24 [Duoneb 0.5 mg-3 mg/3 ml Soln] polyethylene glycoL 3350 [Miralax] 17 gm PO AC-LUNCH #527 gm 02/14/24 Melatonin 1 mg PO HS tab 02/25/24 Loratadine [Claritin] 5 mg PO DAILY tab 03/30/24 Aspirin 81 mg PO DAILY@0800 #30 tab 05/18/24 Famotidine [Pepcid] 20 mg PO BID #60 tab 07/11/24 Colchicine [Colcrys] 0.3 mg PO DAILY #15 each 09/23/24 Isosorbide Mononitrate ER [Imdur] 120 mg PO DAILY #60 tab 09/23/24 Labetalol [Trandate] 500 mg PO BID #150 tab 09/23/24 NIFEdipine XL [Procardia XL] 60 mg PO BID #60 tab 09/23/24 hydrALAZINE HCL [Apresoline] 100 mg PO TID #90 tab 09/23/24 Allergies Allergy/AdvReac Type Severity Reaction Status Date / Time hydromorphone HCl Allergy Anaphylaxis Verified 11/14/24 01:23 [From Dilaudid] propoxyphene Allergy Rash/Hives Verified 11/14/24 01:23 [From Darvocet-N] tramadol Allergy Anaphylaxis Verified 11/14/24 01:23 ibuprofen [From Motrin] AdvReac unable to Verified 11/14/24 01:23 take due to kidney disease venom-honey bee AdvReac passes out Verified 11/14/24 01:23 [bee venom (honey bee)] Review of Systems ROS Statement: Those systems with pertinent positive or pertinent negative responses have been documented in the HPI. ROS Other: All systems not noted in ROS Statement are negative. 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 Past Anesthesia/Blood Transfusion Reactions: Previous Problems w/ Anesthesia Additional Past Anesthesia/Blood Transfusion Reaction / Comment(s): confusion Past Psychological History: Anxiety, Depression Smoking Status: Current every day smoker Past Alcohol Use History: None Reported Past Drug Use History: Marijuana, Methamphetamine - Past Family History Father History Unknown: Yes Family Medical History: Unable to Obtain Mother History Unknown: Yes Family Medical History: No Reported History Grandfather History Unknown: Yes Family Medical History: Coronary Artery Disease (CAD) Additional Family Medical History / Comment(s): Diabetes mellitus type 2 General Exam General appearance: alert, in distress Head exam: Present: atraumatic, normocephalic Eye exam: Present: normal appearance, PERRL Respiratory exam: Present: respiratory distress, rales, accessory muscle use Cardiovascular Exam: Present: regular rate, normal rhythm GI/Abdominal exam: Present: soft. Absent: distended, tenderness Extremities exam: Present: normal inspection, normal capillary refill. Absent: pedal edema, calf tenderness Neurological exam: Present: alert, oriented X3, CN II-XII intact. Absent: motor sensory deficit Psychiatric exam: Present: anxious Skin exam: Present: warm, dry, intact Course Vital Signs 11/14/24 11/14/24 11/14/24 01:15 01:22 02:00 Temperature 98.2 F Pulse Rate 100 95 Respiratory 22 18 Rate Blood Pressure 190/104 195/108 O2 Sat by Pulse 100 100 Oximetry Fraction of 50 Inspired Oxygen (FIO2) 11/14/24 11/14/24 11/14/24 02:15 02:25 02:33 Temperature Pulse Rate 96 93 99 Respiratory 18 18 18 Rate Blood Pressure 199/109 200/108 199/112 O2 Sat by Pulse 96 98 100 Oximetry Fraction of Inspired Oxygen (FIO2) 11/14/24 11/14/24 11/14/24 03:02 03:10 03:18 Temperature Pulse Rate 100 97 96 Respiratory 18 18 18 Rate Blood Pressure 213/116 188/108 195/111 O2 Sat by Pulse 98 98 96 Oximetry Fraction of Inspired Oxygen (FIO2) 11/14/24 11/14/24 11/14/24 03:34 03:55 04:10 Temperature Pulse Rate 102 H 99 103 H Respiratory 18 18 18 Rate Blood Pressure 197/120 198/110 197/115 O2 Sat by Pulse 98 100 98 Oximetry Fraction of 40 Inspired Oxygen (FIO2) 11/14/24 11/14/24 11/14/24 04:30 05:03 05:17 Temperature Pulse Rate 103 H 101 H 98 Respiratory 18 18 18 Rate Blood Pressure 200/119 192/105 198/111 O2 Sat by Pulse 100 98 100 Oximetry Fraction of Inspired Oxygen (FIO2) 11/14/24 11/14/24 05:35 05:52 Temperature Pulse Rate 99 96 Respiratory 18 18 Rate Blood Pressure 183/113 186/104 O2 Sat by Pulse 100 100 Oximetry Fraction of Inspired Oxygen (FIO2) Medical Decision Making - Medical Decision Making Was pt. sent in by a medical professional or institution (, PA, DOCUMENT DESIGN SPECIALIST, urgent care, hospital, or prison...) When possible be specific @ -No Did you speak to anyone other than the patient for history (EMS, parent, family, police, friend...)? What history was obtained from this source @ -No Did you review nursing and triage notes (agree or disagree)? Why? @ -I reviewed and agree with nursing and triage notes Were old charts reviewed (outside hosp., previous admission, EMS record, old EKG, old radiological studies, urgent care reports/EKG's, prison records)? Report findings @ -No old charts were reviewed Differential Dyspnea: Coronary syndrome, arrhythmia, tamponade, asthma, COPD, pulmonary embolism, pneumonia, pneumothorax, pulmonary effusion, anaphylaxis, diabetic ketoacidosis, flailed chest, pulmonary contusion, diaphragmatic rupture, anemia, neuromuscular, this is not meant to be an all-inclusive list. EKG interpreted by me (3pts min.). @ -EKG: Sinus rhythm rate of 94, IL interval 127, QRS duration 81, QTc [address] segment elevation. X-rays interpreted by me (1pt min.). @ -Chest x-ray showing bilateral pulmonary edema CT interpreted by me (1pt min.). @ -None done U/S interpreted by me (1pt. min.). @ -None done What testing was considered but not performed or refused? (CT, X-rays, U/S, labs)? Why? @ -None What meds were considered but not given or refused? Why? @ -None Did you discuss the management of the patient with other professionals (professionals i.e. , PA, DOCUMENT DESIGN SPECIALIST, lab, RT, psych nurse, renal social worker, molding plasterer, teacher, zoology technical officer, upper caser)? Give summary @Dr. Cortez, and Dr. Guzmán Was smoking cessation discussed for >3mins.? @ -No Was critical care preformed (if so, how long)? @ -yes 35 min Were there social determinants of health that impacted care today? How? (Homelessness, low income, unemployed, alcoholism, drug addiction, lopez sportation, low edu. Level, literacy, decrease access to med. care, intermediate, rehab)? @ -No Was there de-escalation of care discussed even if they declined (Discuss DNR or withdrawal of care, Hospice)? DNR status @ -No What co-morbidities impacted this encounter? (DM, HTN, Smoking, COPD, CAD, Cancer, CVA, ARF, Chemo, Hep., AIDS, mental health diagnosis, sleep apnea, morbid obesity)? @End-stage renal disease Was patient admitted / discharged? Hospital course, mention meds given and route, prescriptions, significant lab abnormalities, going to OR and other pertinent info. @ -34-year-old female with end-stage renal disease presenting with respiratory distress, hypertensive urgency. Patient placed on BiPAP for respiratory support, started on nitroglycerin. Patient reports that she did go to dialysis as scheduled and received to complete treatment. Normal potassium, elevated BNP. Case discussed with Dr. Cortez who will admit, Dr. Guzmán aware Undiagnosed new problem with uncertain prognosis? @ -No Drug Therapy requiring intensive monitoring for toxicity (Heparin, Nitro, Insulin, Cardizem)? @ -No Were any procedures done? @ -No Diagnosis/symptom? @ -[Fluid overload, end-stage renal disease, hypertensive urgency Acute, or Chronic, or Acute on Chronic? @ -Acute Uncomplicated (without systemic symptoms) or Complicated (systemic symptoms)? @ -complicated Side effects of treatment? @ -[No Exacerbation, Progression, or Severe Exacerbation? @ -No Poses a threat to life or bodily function? How? (Chest pain, [place], [place], pneumonia, PE, COPD, DKA, ARF, appy, cholecystitis, CVA, Diverticulitis, Homicidal, Suicidal, threat to staff... and all critical care pts) @Yes, hypertensive emergency, respiratory failure, hypoxia - Lab Data Result diagrams: 11/14/24 01:30 11/14/24 01:30 Lab Results 11/14/24 11/14/24 11/14/24 Range/Units 01:30 01:30 01:30 WBC 17.6 H (3.8-10.6) k/uL RBC 2.97 L (3.80-5.40) m/uL Hgb 9.8 L (11.4-16.0) gm/dL Hct 29.9 L (34.0-46.0) % MCV 100.9 H (80.0-100.0) fL MCH 33.2 (25.0-35.0) pg MCHC 32.9 (31.0-37.0) g/dL RDW 18.5 H (11.5-15.5) % Plt Count 345 (150-450) k/uL MPV 7.6 Neutrophils % 78 % Lymphocytes % 9 % Monocytes % 3 % Eosinophils % 8 % Basophils % 0 % Neutrophils # 13.8 H (1.3-7.7) k/uL Lymphocytes # 1.6 (1.0-4.8) k/uL Monocytes # 0.5 (0-1.0) k/uL Eosinophils # 1.5 H (0-0.7) k/uL Basophils # 0.1 (0-0.2) k/uL Hypochromasia Moderate Anisocytosis Slight Macrocytosis Moderate PT 11.2 (10.0-12.5) sec INR 1.0 (<1.2) APTT 25.6 (22.0-30.0) sec Sodium 130 L (137-145) mmol/L Potassium 4.7 (3.5-5.1) mmol/L Chloride 87 L (98-107) mmol/L Carbon Dioxide 27 (22-30) mmol/L Anion Gap 16 mmol/L BUN 37 H (7-17) mg/dL Creatinine 4.61 H (0.52-1.04) mg/dL Est GFR (CKD-EPI)AfAm 13 (>60 ml/min/1.73 sqM) Est GFR (CKD-EPI)NonAf 12 (>60 ml/min/1.73 sqM) Glucose 342 H (74-99) mg/dL Calcium 9.1 (8.4-10.2) mg/dL Magnesium 1.5 L (1.6-2.3) mg/dL Total Bilirubin 1.0 (0.2-1.3) mg/dL AST 63 H (14-36) U/L ALT 84 H (4-34) U/L Alkaline Phosphatase 255 H (38-126) U/L NT-Pro-B Natriuret Pep 92799 pg/mL Total Protein 7.0 (6.3-8.2) g/dL Albumin 4.4 (3.5-5.0) g/dL Critical Care Time Critical Care Time: Yes Total Critical Care Time: 35 Disposition Clinical Impression: BiPAP (biphasic positive airway pressure) dependence, Pulmonary edema, Hypertensive urgency Disposition: ADMITTED IP TO THIS HOSP Condition: Serious Is patient prescribed a controlled substance at d/c from ED?: No Time of Disposition: 03:46
[2024-11-14] MEDS: ONDANSETRON 4 MG/2 ML VIAL IVP STA (02:05)
[2024-11-14] MEDS: MORPHINE SULFATE 4 MG/ML SYRINGE IVP STA ×2 (02:08→03:38)
[2024-11-14 02:14] LABS: ALT 84 U/L (4-34); AST 63 U/L (14-36); African American GFR (CKD) 13 (>60 ml/min/1.73 sqM); Albumin 4.4 g/dL (3.5-5.0); Alkaline Phosphatase 255 U/L (38-126); Anion Gap 16 mmol/L; Blood Urea Nitrogen 37 mg/dL (7-17); Calcium 9.1 mg/dL (8.4-10.2); Carbon Dioxide 27 mmol/L (22-30); Chloride 87 mmol/L (98-107); Glucose 342 mg/dL (74-99); Magnesium 1.5 mg/dL (1.6-2.3); Non-African American GFR(CKD) 12 (>60 ml/min/1.73 sqM); Potassium 4.7 mmol/L (3.5-5.1); Sodium 130 mmol/L (137-145)
[2024-11-14 02:54] LABS: NT-Pro-B-Type Natriuretic Pept 58100 pg/mL
[2024-11-14 02:55] LABS: Partial Thromboplastin Time 25.6 sec (22.0-30.0); Prothrombin Time 11.2 sec (10.0-12.5)
[2024-11-14] MEDS ORDERED: NALOXONE 0.4 MG/ML 1 ML VIAL IV PRN (03:06)
--- NOTE | 2024-11-14 03:59 | XR ---
EXAM: XR Chest, 1 View CLINICAL HISTORY: ITS.REASON XR Reason: edison TECHNIQUE: Frontal view of the chest. COMPARISON: Single view of the chest November 03, 2024 IMPRESSION: 1. Stable positioning of dual lumen right internal jugular approach central venous catheter which terminates with distal tip within the right atrium. 2. Cardiomegaly. 3. Mild interstitial changes in the lungs which can be seen with mild interstitial pulmonary edema. This is worsened from prior study.
--- NOTE | 2024-11-14 05:49 | P.HPIM ---
History of Present Illness H&P Date: 11/14/24 Patient is a 34-year-old female with PMH of ESRD on HD MTThSa, type I DM, seizure disorder, hypertension, hypothyroidism, anxiety who presents to the emergency room with complaints of shortness of breath. Patient reports that she underwent her regularly scheduled dialysis session earlier today where they removed 4 L of fluid. Patient notes she was at home when she developed quickly worsening shortness of breath. She denies paresthesias discomfort, nausea, vomiting, diaphoresis, dizziness. Chest x-ray emergency room revealed cardiomegaly with mild interstitial pulmonary edema. EKG revealed sinus rhythm at [address]/T wave changes noted and reviewed by me. Laboratory valuation was remarkable for hemoglobin 9.8, WBC count 17.6, sodium 130, chloride 87, BUN 37, creatinine 4.61, glucose 342, magnesium 1.5, AST 63, ALT 84, and proBNP of 58,100. ED documentation reviewed and case discussed with ED provider. Review of systems: Pertinent positives and negatives as discussed in HPI, a complete review of systems was performed and all other systems are negative. Physical examination: Vital signs reviewed General: non toxic, no distress, appears at stated age, normal weight Derm: no unusual rashes/lesions, warm Head: atraumatic, normocephalic, symmetric Eyes: EOMI, no lid lag, anicteric sclera, pupils equal round reactive to light ENT: Nose and ears atraumatic Neck: No cervical lymphadenopathy, trachea midline, supple Mouth: no lip lesion, mucus membranes moist Cardiovascular: S1S2 reg, no murmur, positive dorsalis pedis pulse bilateral, no edema Lungs: CTA bilateral, no rhonchi, no rales, no accessory muscle use Abdominal: soft, nontender to palpation, no guarding Ext: muscle strength 5 out of 5 in all 4 extremities grossly, no gross muscle atrophy, no contractures, Neuro: CN II-XI grossly intact, no gross focal neuro deficits Psych: Alert, oriented, appropriate affect Assessment: Shortness of breath, likely secondary to fluid overload in setting of dialysis Chronic conditions: Type I DM, CHF, hypertension, hypothyroidism, Imaging: Chest x-ray emergency room revealed cardiomegaly with mild interstitial pulmonary edema. EKG revealed sinus rhythm at [address]/T wave changes noted and reviewed by me. Data Review: Laboratory valuation was remarkable for hemoglobin 9.8, WBC count 17.6, sodium 130, chloride 87, BUN 37, creatinine 4.61, glucose 342, magnesium 1.5, AST 63, ALT 84, and proBNP of 58,100. Plan: Nephrology consulted Continue with BiPAP as needed Continue with nitroglycerin infusion Cardiac monitoring Resume home medications once reconciled DVT prophylaxis: IPCDs The patient is admitted with an anticipated [] than 2 midnight stay for evaluation of [] CODE STATUS: Full Code Discussed with: Patient Anticipated discharge place: Home Past Medical History Past Medical History: Diabetes Mellitus, GERD/Reflux, Hypertension, Renal Disease, Seizure Disorder, Thyroid Disorder Additional Past Medical History / Comment(s): Neuropathy, last seizure 2020, gastroparesis, headaches with dialysis, states "fast heart rate" since giving ., receives Hemodialysis Wednesday- and Saturdays at [facility]., right chest hemodialysis catheter., severe HTN, hx of c-diff 2013., 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 Past Anesthesia/Blood Transfusion Reactions: Previous Problems w/ Anesthesia Additional Past Anesthesia/Blood Transfusion Reaction / Comment(s): confusion Past Psychological History: Anxiety, Depression Smoking Status: Current every day smoker Past Alcohol Use History: None Reported Past Drug Use History: Marijuana, Methamphetamine - Past Family History Father History Unknown: Yes Family Medical History: Unable to Obtain Mother History Unknown: Yes Family Medical History: No Reported History Grandfather History Unknown: Yes Family Medical History: Coronary Artery Disease (CAD) Additional Family Medical History / Comment(s): Diabetes mellitus type 2 Medications and Allergies Home Medications Medication Instructions Recorded Confirmed Type Docusate [Colace] 100 mg PO DAILY@0800 02/05/24 11/09/24 History Lidocaine 4% Patch 1 patch TOPICAL DAILY@0800 02/05/24 11/09/24 History Magnesium Hydroxide [Milk of 7,200 mg PO DAILY PRN 02/05/24 11/09/24 History Magnesia Concentrate] Ipratropium-Albuterol Nebulize 3 ml INHALATION RT-TID PRN each 02/14/24 11/09/24 Rx [Duoneb 0.5 mg-3 mg/3 ml Soln] polyethylene glycoL 3350 [Miralax] 17 gm PO AC-LUNCH #527 gm 02/14/24 11/09/24 Rx Acetaminophen [Tylenol] 650 mg PO Q4H PRN 02/18/24 11/09/24 History Biotene Dry Mouth/Throat 10 ml PO BID PRN 02/18/24 11/09/24 History Melatonin 1 mg PO HS tab 02/25/24 11/09/24 Rx Butalb/APAP/Caff 50-325-40Mg 1 tab PO Q4HR PRN 03/14/24 11/09/24 History [Fioricet 50-325-40] Darbepoetin Artur [Aranesp] 40 mcg SQ MO 03/14/24 11/09/24 History Loratadine [Claritin] 5 mg PO DAILY tab 03/30/24 11/09/24 Rx Aspirin 81 mg PO DAILY@0800 #30 tab 05/18/24 11/09/24 Rx Famotidine [Pepcid] 20 mg PO BID #60 tab 07/11/24 11/09/24 Rx Atorvastatin [Lipitor] 40 mg PO DIRECTED 08/14/24 11/09/24 History Divalproex ER [Depakote ER] 500 mg PO BID@0800,1700 08/14/24 11/09/24 History Levothyroxine Sodium [Synthroid] 175 mcg PO DAILY@0600 08/14/24 11/09/24 History Metoclopramide [Reglan] 5 mg PO AC-TID PRN 08/14/24 11/09/24 History Pantoprazole [Protonix] 40 mg PO DAILY@0600 08/14/24 11/09/24 History Sertraline [Zoloft] 200 mg PO DAILY@0800 08/14/24 11/09/24 History traZODone HCL [Desyrel] 50 mg PO HS 08/14/24 11/09/24 History ALPRAZolam [Xanax] 0.25 mg PO BID PRN 09/04/24 11/09/24 History Calcium Acetate [PhosLo] 2,001 mg PO TID-W/MEALS 09/04/24 11/09/24 History Calcium Acetate [PhosLo] 667 mg PO DAILY PRN 09/04/24 11/09/24 History cloNIDine HCL [Catapres] 0.3 mg PO TID 09/04/24 11/09/24 History Colchicine [Colcrys] 0.3 mg PO DAILY #15 each 09/23/24 11/09/24 Rx Isosorbide Mononitrate ER [Imdur] 120 mg PO DAILY #60 tab 09/23/24 11/09/24 Rx Labetalol [Trandate] 500 mg PO BID #150 tab 09/23/24 11/09/24 Rx NIFEdipine XL [Procardia XL] 60 mg PO BID #60 tab 09/23/24 11/09/24 Rx hydrALAZINE HCL [Apresoline] 100 mg PO TID #90 tab 09/23/24 11/09/24 Rx Triphrocaps 1mg Cap 1 cap PO DAILY 10/10/24 11/09/24 History Gabapentin [Neurontin] 600 mg PO TID 11/02/24 11/09/24 History Insulin Aspart (For Pump) [NovoLOG 0.01 unit SQ-PUMP CONTINUOUS 11/02/24 11/09/24 History (For Pump)] Ondansetron Odt [Zofran ODT] 4 mg PO Q8HR PRN 11/02/24 11/09/24 History oxyCODONE-APAP 10-325MG [Percocet 1 tab PO Q4HR PRN 11/02/24 11/09/24 History 10-325 mg] Allergies Allergy/AdvReac Type Severity Reaction Status Date / Time hydromorphone HCl Allergy Anaphylaxis Verified 11/14/24 01:23 [From Dilaudid] propoxyphene Allergy Rash/Hives Verified 11/14/24 01:23 [From Darvocet-N] tramadol Allergy Anaphylaxis Verified 11/14/24 01:23 ibuprofen [From Motrin] AdvReac unable to Verified 11/14/24 01:23 take due to kidney disease venom-honey bee AdvReac passes out Verified 11/14/24 01:23 [bee venom (honey bee)] Physical Exam Vitals: Vital Signs Temp Pulse Resp BP Pulse Ox FiO2 11/14/24 04:30 103 H 18 200/119 100 11/14/24 04:10 103 H 18 197/115 98 11/14/24 03:55 99 18 198/110 100 40 11/14/24 03:34 102 H 18 197/120 98 11/14/24 03:18 96 18 195/111 96 11/14/24 03:10 97 18 188/108 98 11/14/24 03:02 100 18 213/116 98 11/14/24 02:33 99 18 199/112 100 11/14/24 02:25 93 18 200/108 98 11/14/24 02:15 96 18 199/109 96 11/14/24 02:00 95 18 195/108 100 11/14/24 01:22 50 11/14/24 01:15 98.2 F 100 22 190/104 100 Intake and Output 11/13/24 11/13/24 11/14/24 14:59 22:59 06:59 Intake Total 36.000 Balance 36.000 Intake: Intake, IV Titration 36.000 Amount Nitroglycerin-D5w Pmx 50 36.000 mg In Dextrose/Water 1 250ml.bag @ 5 MCG/MIN 1.5 mls/hr IV .Q24H ONE Rx#: [id number] Other: Weight 61.689 kg Results CBC & Chem 7: 11/14/24 01:30 11/14/24 01:30 Labs: Abnormal Lab Results - Last 24 Hours (Table) 11/14/24 11/14/24 Range/Units 01:30 01:30 WBC 17.6 H (3.8-10.6) k/uL RBC 2.97 L (3.80-5.40) m/uL Hgb 9.8 L (11.4-16.0) gm/dL Hct 29.9 L (34.0-46.0) % MCV 100.9 H (80.0-100.0) fL RDW 18.5 H (11.5-15.5) % Neutrophils # 13.8 H (1.3-7.7) k/uL Eosinophils # 1.5 H (0-0.7) k/uL Sodium 130 L (137-145) mmol/L Chloride 87 L (98-107) mmol/L BUN 37 H (7-17) mg/dL Creatinine 4.61 H (0.52-1.04) mg/dL Glucose 342 H (74-99) mg/dL Magnesium 1.5 L (1.6-2.3) mg/dL AST 63 H (14-36) U/L ALT 84 H (4-34) U/L Alkaline Phosphatase 255 H (38-126) U/L
[2024-11-14] MEDS: hydrALAZINE HCL 50 MG TAB PO SCH (09:03)
[2024-11-14] MEDS: LABETALOL 200 MG TAB PO SCH (09:03)
[2024-11-14] MEDS: cloNIDine HCL 0.1 MG TAB PO SCH (09:03)
[2024-11-14] MEDS: oxyCODONE-APAP 10-325MG 1 EACH TAB PO PRN (09:03)
[2024-11-14] MEDS: ISOSORBIDE MONONITRATE ER 60 MG TAB.ER.24H PO SCH (09:04)
[2024-11-14] MEDS: MORPHINE SULFATE 4 MG/ML SYRINGE IV PRN (12:01)
--- NOTE | 2024-11-14 12:41 | P.NPCON ---
History of Present Illness - Reason for Consult end stage renal disease - History of Present Illness patient is a 34-year-old female with end-stage renal disease maintained on hemodialysis 4 days a week. Patient is admitted to the hospital with complaints of shortness of breath. Status post 4 L of ultrafiltration yesterdayat dialysis. Chest x-ray shows pulmonary vascular congestion. Patient was initially on BiPAP and currently decreased to nasal cannula. She is appears fairly comfortable at this time. Currently maintained on nitro drip as blood pressure was also significantly elevated with systolic in the 200 range. No history of fever chills nausea vomiting or abdominal pain. 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 Past Anesthesia/Blood Transfusion Reactions: Previous Problems w/ Anesthesia Additional Past Anesthesia/Blood Transfusion Reaction / Comment(s): confusion Past Psychological History: Anxiety, Depression Smoking Status: Current every day smoker Past Alcohol Use History: None Reported Past Drug Use History: Marijuana, Methamphetamine - Past Family History Father History Unknown: Yes Family Medical History: Unable to Obtain Mother History Unknown: Yes Family Medical History: No Reported History Grandfather History Unknown: Yes Family Medical History: Coronary Artery Disease (CAD) Additional Family Medical History / Comment(s): Diabetes mellitus type 2 Medications and Allergies Home Medications Medication Instructions Recorded Confirmed Type Docusate [Colace] 100 mg PO DAILY@0800 02/05/24 11/14/24 History Lidocaine 4% Patch 1 patch TOPICAL DAILY@79902/05/24 11/14/24 History Magnesium Hydroxide [Milk of 7,200 mg PO DAILY PRN 02/05/24 11/14/24 History Magnesia Concentrate] Ipratropium-Albuterol Nebulize 3 ml INHALATION RT-TID PRN each 02/14/24 11/14/24 Rx [Duoneb 0.5 mg-3 mg/3 ml Soln] polyethylene glycoL 3350 [Miralax] 17 gm PO AC-LUNCH #527 gm 02/14/24 11/14/24 Rx Acetaminophen [Tylenol] 650 mg PO Q4H PRN 02/18/24 11/14/24 History Biotene Dry Mouth/Throat 10 ml PO BID PRN 02/18/24 11/14/24 History Melatonin 1 mg PO HS tab 02/25/24 11/14/24 Rx Butalb/APAP/Caff 50-325-40Mg 1 tab PO Q4HR PRN 03/14/24 11/14/24 History [Fioricet 50-325-40] Darbepoetin Artur [Aranesp] 40 mcg SQ MO 03/14/24 11/14/24 History Loratadine [Claritin] 5 mg PO DAILY tab 03/30/24 11/14/24 Rx Aspirin 81 mg PO DAILY@0800 #30 tab 05/18/24 11/14/24 Rx Famotidine [Pepcid] 20 mg PO BID #60 tab 07/11/24 11/14/24 Rx Atorvastatin [Lipitor] 40 mg PO DIRECTED 08/14/24 11/14/24 History Divalproex ER [Depakote ER] 500 mg PO BID@0800,1700 08/14/24 11/14/24 History Levothyroxine Sodium [Synthroid] 175 mcg PO DAILY@0600 08/14/24 11/14/24 History Metoclopramide [Reglan] 5 mg PO AC-TID PRN 08/14/24 11/14/24 History Pantoprazole [Protonix] 40 mg PO DAILY@0600 08/14/24 11/14/24 History Sertraline [Zoloft] 200 mg PO DAILY@0800 08/14/24 11/14/24 History traZODone HCL [Desyrel] 50 mg PO HS 08/14/24 11/14/24 History ALPRAZolam [Xanax] 0.25 mg PO BID PRN 09/04/24 11/14/24 History Calcium Acetate [PhosLo] 2,001 mg PO TID-W/MEALS 09/04/24 11/14/24 History Calcium Acetate [PhosLo] 667 mg PO DAILY PRN 09/04/24 11/14/24 History cloNIDine HCL [Catapres] 0.3 mg PO TID 09/04/24 11/14/24 History Colchicine [Colcrys] 0.3 mg PO DAILY #15 each 09/23/24 11/14/24 Rx Isosorbide Mononitrate ER [Imdur] 120 mg PO DAILY #60 tab 09/23/24 11/14/24 Rx Labetalol [Trandate] 500 mg PO BID #150 tab 09/23/24 11/14/24 Rx NIFEdipine XL [Procardia XL] 60 mg PO BID #60 tab 09/23/24 11/14/24 Rx hydrALAZINE HCL [Apresoline] 100 mg PO TID #90 tab 09/23/24 11/14/24 Rx Triphrocaps 1mg Cap 1 cap PO DAILY 10/10/24 11/14/24 History Gabapentin [Neurontin] 600 mg PO TID 11/02/24 11/14/24 History Insulin Aspart (For Pump) [NovoLOG 0.01 unit SQ-PUMP CONTINUOUS 11/02/24 11/14/24 History (For Pump)] Ondansetron Odt [Zofran ODT] 4 mg PO Q8HR PRN 11/02/24 11/14/24 History oxyCODONE-APAP 10-325MG [Percocet 1 tab PO Q4HR PRN 11/02/24 11/14/24 History 10-325 mg] Allergies Allergy/AdvReac Type Severity Reaction Status Date / Time hydromorphone HCl Allergy Anaphylaxis Verified 11/14/24 01:23 [From Dilaudid] propoxyphene Allergy Rash/Hives Verified 11/14/24 01:23 [From Darvocet-N] tramadol Allergy Anaphylaxis Verified 11/14/24 01:23 ibuprofen [From Motrin] AdvReac unable to Verified 11/14/24 01:23 take due to kidney disease venom-honey bee AdvReac passes out Verified 11/14/24 01:23 [bee venom (honey bee)] Physical Exam Vitals: Vital Signs Temp Pulse Resp BP Pulse Ox FiO2 11/14/24 12:05 80 18 107/69 98 11/14/24 09:00 100 11/14/24 08:43 152/84 11/14/24 08:23 87 18 175/109 98 11/14/24 08:19 40 11/14/24 07:18 90 20 171/100 99 11/14/24 06:45 91 18 172/104 99 11/14/24 06:30 91 18 168/105 100 11/14/24 06:24 93 18 168/102 96 11/14/24 05:52 96 18 186/104 100 11/14/24 05:35 99 18 183/113 100 11/14/24 05:17 98 18 198/111 100 11/14/24 05:03 101 H 18 192/105 98 11/14/24 04:30 103 H 18 200/119 100 11/14/24 04:10 103 H 18 197/115 98 11/14/24 03:55 99 18 198/110 100 40 11/14/24 03:34 102 H 18 197/120 98 11/14/24 03:18 96 18 195/111 96 11/14/24 03:10 97 18 188/108 98 11/14/24 03:02 100 18 213/116 98 11/14/24 02:33 99 18 199/112 100 11/14/24 02:25 93 18 200/108 98 11/14/24 02:15 96 18 199/109 96 11/14/24 02:00 95 18 195/108 100 11/14/24 01:30 28 H 11/14/24 01:22 50 11/14/24 01:15 98.2 F 100 22 190/104 100 Intake and Output 11/13/24 11/14/24 11/14/24 22:59 06:59 14:59 Intake Total 75.800 103.600 Balance 75.800 103.600 Intake: Intake, IV Titration 75.800 103.600 Amount Nitroglycerin-D5w Pmx 50 75.800 103.600 mg In Dextrose/Water 1 250ml.bag @ 5 MCG/MIN 1.5 mls/hr IV .Q24H ONE Rx#: [id number] Other: Weight 61.689 kg patient is awake, comfortable, no acute distress. Examination of the heart S1 and S2 Examination the lungs bilateral breath sounds are heard Abdomen is soft nontender Examination lower extremities shows no significant edema Left upper extremity is wrapped. Patient has a newly placed left forearm AV graft Results - Lab Results Most recent lab results Calcium 9.1 mg/dL (8.4-10.2) 11/14/24 01:30 Magnesium 1.5 mg/dL (1.6-2.3) L 11/14/24 01:30 11/14/24 01:30 11/14/24 01:30 Assessment and Plan Assessment: 1. End-stage renal disease on hemodialysis on Wednesday as outpatient 2. Acute hypoxic respiratory failure 3. Hypertensive emergency 4. Status post recent left forearm AV graft Plan: Hemodialysis today with UF of about 4L Weaned down nitro drip Discussed salt and fluid restriction again. Continue antihypertensive regimen. Thank you for the consultation. We will continue to follow the patient with you during her hospitalization.
[2024-11-14] MEDS: ACETAMINOPHEN TAB 325 MG TAB PO PRN (14:45)
--- NOTE | 2024-11-14 15:03 | P.PN ---
Subjective Progress Note Date: 11/14/24 Hospital Course: 24-year-old female with PMH of ESRD on HD, type I DM on insulin pump, seizure disorder, HTN, hypothyroidism, anxiety, who presented to ED with sudden onset of shortness of breath, before admission she underwent hemodialysis with 4 L fluid removed. Chest x-ray showed cardiomegaly with mild interstitial pulmonary edema, EKG showed no ST-T wave changes, lab work showed hemoglobin of 9.8, leukocytosis WBC 17.6, sodium 130, magnesium 1.5, mildly elevated AST ALT, proBNP 58,100. Patient was admitted for management of acute hypoxic respiratory failure likely secondary to fluid overload, nephrology consulted, patient was started on nitroglycerin drip, later on her oral BP medications were resumed. Patient was switched from BiPAP to nasal cannula, underwent hemodialysis 11/04 with 4 L removal, wean down nitro drip. Pertinent Imaging: Reviewed chest x-ray showing bilateral pulmonary vascular congestion Subjective: Patient was seen and examined in the ER, complaining of residual shortness of breath though improved, generalized fatigue Pertinent positives and negatives as discussed above, a complete review of systems was performed and all other systems are negative. Vitals Signs Reviewed. General chronically ill-appearing Derm: [warm], [dry] Head: [atraumatic], [normocephalic], [symmetric] Eyes: [EOMI], [no lid lag], [anicteric sclera] Mouth: [no lip lesion], [mucus membranes moist] Cardiovascular: [S1S2 reg], [no murmur] Lungs: [CTA bilateral], [no rhonchi, no rales] , [no accessory muscle use] Abdominal: [soft], [ nontender to palpation], [no guarding], [no appreciable organomegaly] Ext: [no gross muscle atrophy], [no edema], [no contractures], left lower extremity fistula, maturing Neuro: [ CN II-XI grossly intact], [no focal neuro deficits] Psych: [Alert], [oriented], [appropriate affect] Data Reviewed Today: Pertinent Labs: Leukocytosis 17.6, hemoglobin 9.8, sodium 130, magnesium 1.5, elevated AST ALT Assessment and Plan: Acute Hypoxic respiratory failure secondary to fluid overload Hypertensive emergency ESRD on HD Wednesday -Status post HD 11/04 with 4 L fluid removed, nephrology following -Resumed home oral BP regimen with hydralazine 100 3 times daily, Imdur 120 daily, labetalol 500 twice daily, Procardia 60 twice daily -Down nitro drip, discussed with RN -Wean down supplemental oxygen, discussed with RN [Chronic:] Type I DM on insulin pump Hypothyroidism CHF Resumed home medications- DVT ppx: Heparin Anticipated discharge place: home Anticipated discharge time: 11/15/24 Objective - Vital Signs Vital signs: Vital Signs Temp 98.2 F 11/14/24 01:15 Pulse 80 11/14/24 12:05 Resp 18 11/14/24 12:05 BP 107/69 11/14/24 12:05 Pulse Ox 98 11/14/24 12:05 FiO2 40 11/14/24 08:19 Intake & Output 11/13/24 11/14/24 11/14/24 18:59 06:59 18:59 Intake Total 75.800 103.600 Balance 75.800 103.600 Weight 61.689 kg Intake: Intake, IV Titration 75.800 103.600 Amount Nitroglycerin-D5w Pmx 50 75.800 103.600 mg In Dextrose/Water 1 250ml.bag @ 5 MCG/MIN 1.5 mls/hr IV .Q24H ONE Rx#: [id number] - Labs CBC & Chem 7: 11/14/24 01:30 11/14/24 01:30 Labs: Abnormal Lab Results - Last 24 Hours (Table) 11/14/24 11/14/24 Range/Units 01:30 01:30 WBC 17.6 H (3.8-10.6) k/uL RBC 2.97 L (3.80-5.40) m/uL Hgb 9.8 L (11.4-16.0) gm/dL Hct 29.9 L (34.0-46.0) % MCV 100.9 H (80.0-100.0) fL RDW 18.5 H (11.5-15.5) % Neutrophils # 13.8 H (1.3-7.7) k/uL Eosinophils # 1.5 H (0-0.7) k/uL Sodium 130 L (137-145) mmol/L Chloride 87 L (98-107) mmol/L BUN 37 H (7-17) mg/dL Creatinine 4.61 H (0.52-1.04) mg/dL Glucose 342 H (74-99) mg/dL Magnesium 1.5 L (1.6-2.3) mg/dL AST 63 H (14-36) U/L ALT 84 H (4-34) U/L Alkaline Phosphatase 255 H (38-126) U/L
[2024-11-14] MEDS: HEPARIN SODIUM,PORCINE 5,000 UNIT/ML 1 ML VIAL SQ SCH (15:12)
[2024-11-14] MEDS: DIVALPROEX ER 500 MG TAB.ER.24H PO SCH (16:29)
[2024-11-14] MEDS: ALPRAZolam 0.25 MG TAB PO PRN (20:54)
[2024-11-14] MEDS: TRIMETHOBENZAMIDE 100 MG/ML 2 ML VIAL IM PRN (22:59)
[2024-11-14] MEDS: traZODone HCL 50 MG TAB PO SCH (22:59)
[2024-11-15] MEDS: LEVOTHYROXINE 88 MCG TAB PO SCH (06:01)
[2024-11-15 08:46] LABS: Anisocytosis Slight; Basophils # (A) 0.1 k/uL (0-0.2); Basophils % (A) 1 %; Eosinophils % (A) 20 %; HCT 25.9 % (34.0-46.0); Hypochromasia Marked; Lymphocytes # (A) 1.2 k/uL (1.0-4.8); Lymphocytes % (A) 11 %; MCH 32.8 pg (25.0-35.0); MCHC 32.1 g/dL (31.0-37.0); MCV 102.4 fL (80.0-100.0); Macrocytosis Moderate; Mean Platelet Volume 7.7; Monocytes # (A) 0.5 k/uL (0-1.0); Monocytes % (A) 4 %; Neutrophils # (A) 6.4 k/uL (1.3-7.7); Neutrophils % (A) 61 %; Platelet Count 322 k/uL (150-450); RBC 2.53 m/uL (3.80-5.40); RDW 18.3 % (11.5-15.5); WBC 10.4 k/uL (3.8-10.6)
[2024-11-15] MEDS: SERTRALINE 100 MG TAB PO SCH (08:54)
[2024-11-15 08:57] LABS: HGB 8.3 gm/dL (11.4-16.0)
[2024-11-15 09:16] LABS: African American GFR (CKD) 13 (>60 ml/min/1.73 sqM); Anion Gap 10 mmol/L; Blood Urea Nitrogen 36 mg/dL (7-17); Carbon Dioxide 30 mmol/L (22-30); Chloride 93 mmol/L (98-107); Glucose 149 mg/dL (74-99); Magnesium 1.7 mg/dL (1.6-2.3); Non-African American GFR(CKD) 11 (>60 ml/min/1.73 sqM); Potassium 4.5 mmol/L (3.5-5.1); Sodium 133 mmol/L (137-145)
--- NOTE | 2024-11-15 12:34 | P.PN ---
Subjective Patient is seen for follow-up for end-stage renal disease. She was dialyzed yesterday with UF of 3.4 L. No significant complaints today except for back pain. No abdominal pain Objective - Vital Signs Vital signs: Vital Signs Temp 97.5 F L 11/15/24 02:30 Pulse 70 11/15/24 12:10 Resp 16 11/15/24 12:10 BP 105/69 11/15/24 12:10 Pulse Ox 98 11/15/24 12:10 FiO2 40 11/14/24 08:19 Intake & Output 11/14/24 11/15/24 11/15/24 18:59 06:59 18:59 Intake Total 3510.975 Output Total 3400 Balance 110.975 Intake: Intake, IV Titration 110.975 Amount Nitroglycerin-D5w Pmx 50 110.975 mg In Dextrose/Water 1 250ml.bag @ 5 MCG/MIN 1.5 mls/hr IV .Q24H ONE Rx#: [id number] Hemodialysis 3400 Output: Hemodialysis 400 Hemodialysis Net Amount 3000 - Exam patient is awake, comfortable, no acute distress. Examination of the heart S1 and S2 Examination the lungs bilateral breath sounds are heard Abdomen is soft nontender Examination lower extremities shows no significant edema Left upper extremity is wrapped. Patient has a newly placed left forearm AV graft - Labs CBC & Chem 7: 11/15/24 08:20 11/15/24 08:20 Labs: Abnormal Lab Results - Last 24 Hours (Table) 11/15/24 11/15/24 Range/Units 08:20 08:20 RBC 2.53 L (3.80-5.40) m/uL Hgb 8.3 L D (11.4-16.0) gm/dL Hct 25.9 L (34.0-46.0) % MCV 102.4 H (80.0-100.0) fL RDW 18.3 H (11.5-15.5) % Eosinophils # 2.0 H (0-0.7) k/uL Sodium 133 L (137-145) mmol/L Chloride 93 L (98-107) mmol/L BUN 36 H (7-17) mg/dL Creatinine 4.90 H (0.52-1.04) mg/dL Glucose 149 H (74-99) mg/dL Phosphorus 6.0 H (2.5-4.5) mg/dL Assessment and Plan Assessment: 1. End-stage renal disease on hemodialysis on Wednesday as outpatient 2. Acute hypoxic respiratory failure, improved 3. Hypertensive emergency, improved 4. Status post recent left forearm AV graft Plan: Hemodialysis in a.m. Lottie Ohara
--- NOTE | 2024-11-15 14:00 | P.PN ---
Subjective Progress Note Date: 11/15/24 Hospital Course: 34-year-old female with PMH of ESRD on HD, type I DM on insulin pump, seizure disorder, HTN, hypothyroidism, anxiety, who presented to ED with sudden onset of shortness of breath, before admission she underwent hemodialysis with 4 L fluid removed. Chest x-ray showed cardiomegaly with mild interstitial pulmonary edema, EKG showed no ST-T wave changes, lab work showed hemoglobin of 9.8, leukocytosis WBC 17.6, sodium 130, magnesium 1.5, mildly elevated AST ALT, proBNP 58,100. Patient was admitted for management of acute hypoxic respiratory failure likely secondary to fluid overload, nephrology consulted, patient was started on nitroglycerin drip, later on her oral BP medications were resumed. Patient was switched from BiPAP to nasal cannula, underwent hemodialysis 11/04 with 4 L removal, nitro drip stopped, blood pressure is better controlled. Plan for EGD on 11/16 and possibly discharge after. On room air today Subjective: Continues to complain of reproducible chest pain, arm pain Pertinent positives and negatives as discussed above, a complete review of sy stems was performed and all other systems are negative. Vitals Signs Reviewed. General chronically ill-appearing Derm: [warm], [dry] Head: [atraumatic], [normocephalic], [symmetric] Eyes: [EOMI], [no lid lag], [anicteric sclera] Mouth: [no lip lesion], [mucus membranes moist] Cardiovascular: [S1S2 reg], [no murmur] Lungs: [CTA bilateral], [no rhonchi, no rales] , [no accessory muscle use] Abdominal: [soft], [ nontender to palpation], [no guarding], [no appreciable organomegaly] Ext: [no gross muscle atrophy], [no edema], [no contractures], left lower extremity fistula, maturing Neuro: [ CN II-XI grossly intact], [no focal neuro deficits] Psych: [Alert], [oriented], [appropriate affect] Data Reviewed Today: Pertinent Labs: Leukocytosis resolved, hemoglobin 8.3, down from 9.8, no signs of bleeding, sodium 133, potassium normal 4.5. Assessment and Plan: [Acute Hypoxic respiratory failure secondary to fluid overload, resolved Hypertensive emergency,resolved Hypertension ESRD on HD Wednesday -Status post HD 11/04 with 4 L fluid removed, nephrology following -Resumed home oral BP regimen with hydralazine 100 3 times daily, Imdur 120 d aily, labetalol 500 twice daily, Procardia 60 twice daily -HD 11/16/2024, started on Aranesp [Chronic:] Type I DM on insulin pump Hypothyroidism CHF Resumed home medications- DVT ppx: Heparin Anticipated discharge place: home Anticipated discharge time: Objective - Vital Signs Vital signs: Vital Signs Temp 97.5 F L 11/15/24 02:30 Pulse 69 11/15/24 13:24 Resp 18 11/15/24 13:24 BP 105/65 11/15/24 13:24 Pulse Ox 99 11/15/24 13:24 FiO2 40 11/14/24 08:19 Intake & Output 11/14/24 11/15/24 11/15/24 18:59 06:59 18:59 Intake Total 3510.975 Output Total 3400 Balance 110.975 Intake: Intake, IV Titration 110.975 Amount Nitroglycerin-D5w Pmx 50 110.975 mg In Dextrose/Water 1 250ml.bag @ 5 MCG/MIN 1.5 mls/hr IV .Q24H ONE Rx#: [id number] Hemodialysis 3400 Output: Hemodialysis 400 Hemodialysis Net Amount 3000 - Labs CBC & Chem 7: 11/15/24 08:20 11/15/24 08:20 Labs: Abnormal Lab Results - Last 24 Hours (Table) 11/15/24 11/15/24 Range/Units 08:20 08:20 RBC 2.53 L (3.80-5.40) m/uL Hgb 8.3 L D (11.4-16.0) gm/dL Hct 25.9 L (34.0-46.0) % MCV 102.4 H (80.0-100.0) fL RDW 18.3 H (11.5-15.5) % Eosinophils # 2.0 H (0-0.7) k/uL Sodium 133 L (137-145) mmol/L Chloride 93 L (98-107) mmol/L BUN 36 H (7-17) mg/dL Creatinine 4.90 H (0.52-1.04) mg/dL Glucose 149 H (74-99) mg/dL Phosphorus 6.0 H (2.5-4.5) mg/dL
[2024-11-15] MEDS: DARBEPOETIN ALFA 60 MCG/0.3 ML SYRINGE SQ SCH (14:01)
[2024-11-15 16:49] LABS: Glucose,Whole Blood 161 mg/dL (70-110)
[2024-11-15] MEDS ORDERED: DEXTROSE 50% SYRINGE 50 ML IVP PRN ×2 (17:21)
[2024-11-15] MEDS: INSULIN ASPART (NovoLOG) 100 UNIT/ML VIAL SQ SCH ×2 (18:30)
[2024-11-15 20:02] LABS: Glucose,Whole Blood 202 mg/dL (70-110)
[2024-11-15] MEDS: INSULIN DETEMIR (LEVEMIR) 100 UNIT/ML SYR SQ SCH (21:29)
[2024-11-16 02:19] LABS: Glucose,Whole Blood 199 mg/dL (70-110)
[2024-11-16 05:59] LABS: Glucose,Whole Blood 106 mg/dL (70-110)
[2024-11-16 06:48] LABS: Anisocytosis Slight; Basophils # (A) 0.1 k/uL (0-0.2); Basophils % (A) 1 %; Eosinophils # (A) 1.8 k/uL (0-0.7); Eosinophils % (A) 19 %; HCT 27.5 % (34.0-46.0); HGB 8.6 gm/dL (11.4-16.0); Hypochromasia Slight; Lymphocytes # (A) 1.6 k/uL (1.0-4.8); Lymphocytes % (A) 16 %; MCH 32.1 pg (25.0-35.0); MCHC 31.3 g/dL (31.0-37.0); MCV 102.7 fL (80.0-100.0); Macrocytosis Moderate; Mean Platelet Volume 8.5; Monocytes # (A) 0.4 k/uL (0-1.0); Monocytes % (A) 4 %; Neutrophils # (A) 5.5 k/uL (1.3-7.7); Neutrophils % (A) 58 %; Platelet Count 352 k/uL (150-450); RBC 2.68 m/uL (3.80-5.40); RDW 19.2 % (11.5-15.5); WBC 9.6 k/uL (3.8-10.6)
[2024-11-16 06:57] LABS: Glucose,Whole Blood 107 mg/dL (70-110)
[2024-11-16 07:11] LABS: African American GFR (CKD) 9 (>60 ml/min/1.73 sqM); Anion Gap 13 mmol/L; Blood Urea Nitrogen 51 mg/dL (7-17); Calcium 9.3 mg/dL (8.4-10.2); Carbon Dioxide 28 mmol/L (22-30); Chloride 91 mmol/L (98-107); Glucose 91 mg/dL (74-99); Magnesium 1.7 mg/dL (1.6-2.3); Non-African American GFR(CKD) 8 (>60 ml/min/1.73 sqM); Phosphorus 8.1 mg/dL (2.5-4.5); Potassium 5.2 mmol/L (3.5-5.1); Sodium 132 mmol/L (137-145)
[2024-11-16] MEDS: ONDANSETRON 4 MG/2 ML VIAL IVP PRN (09:10)
[2024-11-16 11:32] LABS: Glucose,Whole Blood 103 mg/dL (70-110)
--- NOTE | 2024-11-16 11:58 | P.PN ---
Subjective Patient is seen for follow-up for end-stage renal disease. Patient is seen on dialysis. Tolerating treatment well. Systolic blood pressure in the 130s. Objective - Vital Signs Vital signs: Vital Signs Temp 97.9 F 11/16/24 09:07 Pulse 77 11/16/24 09:08 Resp 16 11/16/24 09:08 BP 131/78 11/16/24 09:07 Pulse Ox 100 11/16/24 09:07 FiO2 40 11/14/24 08:19 Intake & Output 11/15/24 11/16/24 11/16/24 18:59 06:59 18:59 Intake Total 360 400 358 Output Total 0 Balance 360 400 358 Weight 61.689 kg Intake: Oral 360 400 358 Output: Urine 0 Other: Voiding Method Toilet Toilet Toilet # Voids 1 - Exam patient is awake, comfortable, no acute distress. Examination of the heart S1 and S2 Examination the lungs bilateral breath sounds are heard Abdomen is soft nontender Examination lower extremities shows no significant edema Left upper extremity is wrapped. Patient has a newly placed left forearm AV graft - Labs CBC & Chem 7: 11/16/24 06:21 11/16/24 06:21 Labs: Abnormal Lab Results - Last 24 Hours (Table) 11/15/24 11/15/24 11/16/24 Range/Units 16:46 19:59 02:08 RBC (3.80-5.40) m/uL Hgb (11.4-16.0) gm/dL Hct (34.0-46.0) % MCV (80.0-100.0) fL RDW (11.5-15.5) % Eosinophils # (0-0.7) k/uL Sodium (137-145) mmol/L Potassium (3.5-5.1) mmol/L Chloride (98-107) mmol/L BUN (7-17) mg/dL Creatinine (0.52-1.04) mg/dL POC Glucose (mg/dL) 161 H 202 H 199 H (70-110) mg/dL Phosphorus (2.5-4.5) mg/dL 11/16/24 11/16/24 Range/Units 06:21 06:21 RBC 2.68 L (3.80-5.40) m/uL Hgb 8.6 L (11.4-16.0) gm/dL Hct 27.5 L (34.0-46.0) % MCV 102.7 H (80.0-100.0) fL RDW 19.2 H (11.5-15.5) % Eosinophils # 1.8 H (0-0.7) k/uL Sodium 132 L (137-145) mmol/L Potassium 5.2 H (3.5-5.1) mmol/L Chloride 91 L (98-107) mmol/L BUN 51 H (7-17) mg/dL Creatinine 6.59 H (0.52-1.04) mg/dL POC Glucose (mg/dL) (70-110) mg/dL Phosphorus 8.1 H (2.5-4.5) mg/dL Assessment and Plan Assessment: 1. End-stage renal disease on hemodialysis on Wednesday as outpatient 2. Acute hypoxic respiratory failure, improved 3. Hypertensive emergency, improved 4. Status post recent left forearm AV graft Plan: Hemodialysis today and possibly again in a.m.
[2024-11-16 13:05] LABS: Glucose,Whole Blood 126 mg/dL (70-110)
--- NOTE | 2024-11-16 14:32 | P.PN ---
Subjective Progress Note Date: 11/16/24 Hospital Course: 34-year-old female with PMH of ESRD on HD, type I DM on insulin pump, seizure disorder, HTN, hypothyroidism, anxiety, who presented to ED with sudden onset of shortness of breath, before admission she underwent hemodialysis with 4 L fluid removed. Chest x-ray showed cardiomegaly with mild interstitial pulmonary edema, EKG showed no ST-T wave changes, lab work showed hemoglobin of 9.8, leukocytosis WBC 17.6, sodium 130, magnesium 1.5, mildly elevated AST ALT, proBNP 58,100. Patient was admitted for management of acute hypoxic respiratory failure likely secondary to fluid overload, nephrology consulted, patient was started on nitroglycerin drip, later on her oral BP medications were resumed. Patient was switched from BiPAP to nasal cannula, underwent hemodialysis 11/04 with 4 L removal, nitro drip stopped, blood pressure is better controlled. Hemodialysis planned for 11/17, possible discharge after. Subjective: He was seen and examined at bedside today, complaining of nausea that started after breakfast, persistent chest wall pain Pertinent positives and negatives as discussed above, a complete review of systems was performed and all other systems are negative. Vitals Signs Reviewed. General chronically ill-appearing Derm: [warm], [dry] Head: [atraumatic], [normocephalic], [symmetric] Eyes: [EOMI], [no lid lag], [anicteric sclera] Mouth: [no lip lesion], [mucus membranes moist] Cardiovascular: [S1S2 reg], [no murmur] Lungs: [CTA bilateral], [no rhonchi, no rales] , [no accessory muscle use] Abdominal: [soft], [ nontender to palpation], [no guarding], [no appreciable organomegaly] Ext: [no gross muscle atrophy], [no edema], [no contractures], left lower extremity fistula, maturing Neuro: [ CN II-XI grossly intact], [no focal neuro deficits] Psych: [Alert], [oriented], [appropriate affect] Data Reviewed Today: Pertinent Labs: Hemoglobin 8.6, stable, leukocytes normal, platelet count normal, sodium 132, potassium 5.2 predialysis, glucose is well-controlled Assessment and Plan: Acute Hypoxic respiratory failure secondary to fluid overload Hypertensive emergency,resolved Hypertension ESRD on HD Wednesday -nephrology following -Resumed home oral BP regimen with hydralazine 100 3 times daily, Imdur 120 daily, labetalol 500 twice daily, Procardia 60 twice daily, blood pressure is well-controlled -HD 11/16/2024 and 11/17, started on Aranesp [Chronic:] Type I DM on insulin pump Hypothyroidism CHF Resumed home medications- DVT ppx: Heparin Anticipated discharge place: home Anticipated discharge time: 11/17/2024 Objective - Vital Signs Vital signs: Vital Signs Temp 97.7 F 11/16/24 13:05 Pulse 87 11/16/24 13:07 Resp 16 11/16/24 13:07 BP 124/78 11/16/24 13:05 Pulse Ox 100 11/16/24 13:05 FiO2 40 11/14/24 08:19 Intake & Output 11/15/24 11/16/24 11/16/24 18:59 06:59 18:59 Intake Total 360 400 458 Output Total 0 Balance 360 400 458 Weight 61.689 kg Intake: Oral 360 400 458 Output: Urine 0 Other: Voiding Method Toilet Toilet Toilet # Voids 1 - Labs CBC & Chem 7: 11/16/24 06:21 11/16/24 06:21 Labs: Abnormal Lab Results - Last 24 Hours (Table) 11/15/24 11/15/24 11/16/24 Range/Units 16:46 19:59 02:08 RBC (3.80-5.40) m/uL Hgb (11.4-16.0) gm/dL Hct (34.0-46.0) % MCV (80.0-100.0) fL RDW (11.5-15.5) % Eosinophils # (0-0.7) k/uL Sodium (137-145) mmol/L Potassium (3.5-5.1) mmol/L Chloride (98-107) mmol/L BUN (7-17) mg/dL Creatinine (0.52-1.04) mg/dL POC Glucose (mg/dL) 161 H 202 H 199 H (70-110) mg/dL Phosphorus (2.5-4.5) mg/dL 11/16/24 11/16/24 11/16/24 Range/Units 06:21 06:21 13:04 RBC 2.68 L (3.80-5.40) m/uL Hgb 8.6 L (11.4-16.0) gm/dL Hct 27.5 L (34.0-46.0) % MCV 102.7 H (80.0-100.0) fL RDW 19.2 H (11.5-15.5) % Eosinophils # 1.8 H (0-0.7) k/uL Sodium 132 L (137-145) mmol/L Potassium 5.2 H (3.5-5.1) mmol/L Chloride 91 L (98-107) mmol/L BUN 51 H (7-17) mg/dL Creatinine 6.59 H (0.52-1.04) mg/dL POC Glucose (mg/dL) 126 H (70-110) mg/dL Phosphorus 8.1 H (2.5-4.5) mg/dL
[2024-11-16 16:46] LABS: Glucose,Whole Blood 150 mg/dL (70-110)
[2024-11-16 20:41] LABS: Glucose,Whole Blood 147 mg/dL (70-110)
[2024-11-17 01:29] VITALS: RESP 16
[2024-11-17 06:12] LABS: Anisocytosis Slight; Basophils % (A) 1 %; Eosinophils # (A) 1.4 k/uL (0-0.7); Eosinophils % (A) 19 %; HCT 26.3 % (34.0-46.0); HGB 8.3 gm/dL (11.4-16.0); Hypochromasia Moderate; Lymphocytes # (A) 1.2 k/uL (1.0-4.8); Lymphocytes % (A) 16 %; MCH 32.5 pg (25.0-35.0); MCHC 31.5 g/dL (31.0-37.0); MCV 103.1 fL (80.0-100.0); Macrocytosis Moderate; Mean Platelet Volume 7.7; Monocytes # (A) 0.4 k/uL (0-1.0); Monocytes % (A) 5 %; Neutrophils # (A) 4.4 k/uL (1.3-7.7); Neutrophils % (A) 58 %; Platelet Count 334 k/uL (150-450); RBC 2.55 m/uL (3.80-5.40); RDW 19.1 % (11.5-15.5); WBC 7.5 k/uL (3.8-10.6)
[2024-11-17 06:23] LABS: Glucose,Whole Blood 98 mg/dL (70-110)
[2024-11-17 06:34] LABS: African American GFR (CKD) 13 (>60 ml/min/1.73 sqM); Anion Gap 8 mmol/L; Blood Urea Nitrogen 34 mg/dL (7-17); Calcium 8.7 mg/dL (8.4-10.2); Carbon Dioxide 30 mmol/L (22-30); Chloride 94 mmol/L (98-107); Glucose 102 mg/dL (74-99); Non-African American GFR(CKD) 11 (>60 ml/min/1.73 sqM); Phosphorus 6.3 mg/dL (2.5-4.5); Potassium 4.7 mmol/L (3.5-5.1); Sodium 132 mmol/L (137-145)
[2024-11-17 08:29] VITALS: TEMP 98.3
--- NOTE | 2024-11-17 09:43 | P.DS ---
Providers Date of admission: 11/14/24 03:08 Attending physician: Agnes Cortez MD Consults: 11/14/24 03:06 Consult Physician Urgent Consulting Provider: Bart Guzmán Consult Reason/Comments: ESRD, fluid overload Do you want consulting provider notified?: Yes Primary care physician: Stated None Hospital Course: 34-year-old female with PMH of ESRD on HD, type I DM on insulin pump, seizure disorder, HTN, hypothyroidism, anxiety, who presented to ED with sudden onset of shortness of breath, before admission she underwent hemodialysis with 4 L fluid removed. Chest x-ray showed cardiomegaly with mild interstitial pulmonary edema, EKG showed no ST-T wave changes, lab work showed hemoglobin of 9.8, leukocytosis WBC 17.6, sodium 130, magnesium 1.5, mildly elevated AST ALT, proBNP 58,100. Patient was admitted for management of acute hypoxic respiratory failure likely secondary to fluid overload, nephrology consulted, patient was started on nitroglycerin drip, later on her oral BP medications were resumed. Patient was switched from BiPAP to nasal cannula, underwent hemodialysis 11/04 with 4 L removal, nitro drip stopped, blood pressure was better controlled. She had dialysis on November 17 and was discharged home thereafter. Health Concerns: Acute Hypoxic respiratory failure secondary to fluid overload Hypertensive emergency,resolved Primary hypertension ESRD on HD Wednesday Type 1 diabetes on insulin pump Patient Condition at Discharge: Fair Plan - Discharge Summary Discharge Rx Participant: Yes New Discharge Prescriptions: New Isosorbide Mononitrate ER [Imdur] 120 mg PO DAILY tab cloNIDine HCL [Catapres] 0.3 mg PO TID tab Continue Magnesium Hydroxide [Milk of Magnesia Concentrate] 7,200 mg PO DAILY PRN PRN Reason: Constipation Lidocaine 4% Patch 1 patch TOPICAL DAILY@0800 Ipratropium-Albuterol Nebulize [Duoneb 0.5 mg-3 mg/3 ml Soln] 3 ml INHALATION RT-TID PRN each PRN Reason: Shortness Of Breath Or Wheezing Biotene Dry Mouth/Throat 10 ml PO BID PRN PRN Reason: DRY MOUTH/THROAT Acetaminophen [Tylenol] 650 mg PO Q4H PRN PRN Reason: Pain Or Fever > 100.5 Darbepoetin Artur [Aranesp] 40 mcg SQ MO Loratadine [Claritin] 5 mg PO DAILY tab Sertraline [Zoloft] 200 mg PO DAILY@0800 ALPRAZolam [Xanax] 0.25 mg PO BID PRN PRN Reason: Anxiety Colchicine [Colcrys] 0.3 mg PO DAILY #15 each Insulin Aspart (For Pump) [NovoLOG (For Pump)] 0.01 unit SQ-PUMP CONTINUOUS Ondansetron Odt [Zofran ODT] 4 mg PO Q8HR PRN PRN Reason: Nausea And Vomiting Docusate [Colace] 100 mg PO DAILY@0800 polyethylene glycoL 3350 [Miralax] 17 gm PO AC-LUNCH #527 gm Melatonin 1 mg PO HS tab Butalb/APAP/Caff 50-325-40Mg [Fioricet 50-325-40] 1 tab PO Q4HR PRN PRN Reason: Headache Aspirin 81 mg PO DAILY@0800 #30 tab Famotidine [Pepcid] 20 mg PO BID #60 tab Atorvastatin [Lipitor] 40 mg PO DIRECTED Divalproex ER [Depakote ER] 500 mg PO BID@0800,1700 Levothyroxine Sodium [Synthroid] 175 mcg PO DAILY@0600 Metoclopramide [Reglan] 5 mg PO AC-TID PRN PRN Reason: Nausea Pantoprazole [Protonix] 40 mg PO DAILY@0600 traZODone HCL [Desyrel] 50 mg PO HS Calcium Acetate [PhosLo] 2,001 mg PO TID-W/MEALS Calcium Acetate [PhosLo] 667 mg PO DAILY PRN PRN Reason: W/SNACK hydrALAZINE HCL [Apresoline] 100 mg PO TID #90 tab NIFEdipine XL [Procardia XL] 60 mg PO BID #60 tab Labetalol [Trandate] 500 mg PO BID #150 tab Triphrocaps 1mg Cap 1 cap PO DAILY Gabapentin [Neurontin] 600 mg PO TID oxyCODONE-APAP 10-325MG [Percocet 10-325 mg] 1 tab PO Q4HR PRN PRN Reason: Pain SCALE 6-10 Discontinued cloNIDine HCL [Catapres] 0.3 mg PO TID Isosorbide Mononitrate ER [Imdur] 120 mg PO DAILY #60 tab Discharge Medication List Docusate [Colace] 100 mg PO DAILY@0800 02/05/24 [History] Lidocaine 4% Patch 1 patch TOPICAL DAILY@0800 02/05/24 [History] Magnesium Hydroxide [Milk of Magnesia Concentrate] 7,200 mg PO DAILY PRN 02/05/24 [History] Ipratropium-Albuterol Nebulize [Duoneb 0.5 mg-3 mg/3 ml Soln] 3 ml INHALATION RT-TID PRN each 02/14/24 [Rx] polyethylene glycoL 3350 [Miralax] 17 gm PO AC-LUNCH #527 gm 02/14/24 [Rx] Acetaminophen [Tylenol] 650 mg PO Q4H PRN 02/18/24 [History] Biotene Dry Mouth/Throat 10 ml PO BID PRN 02/18/24 [History] Melatonin 1 mg PO HS tab 02/25/24 [Rx] Butalb/APAP/Caff 50-325-40Mg [Fioricet 50-325-40] 1 tab PO Q4HR PRN 03/14/24 [History] Darbepoetin Artur [Aranesp] 40 mcg SQ MO 03/14/24 [History] Loratadine [Claritin] 5 mg PO DAILY tab 03/30/24 [Rx] Aspirin 81 mg PO DAILY@0800 #30 tab 05/18/24 [Rx] Famotidine [Pepcid] 20 mg PO BID #60 tab 07/11/24 [Rx] Atorvastatin [Lipitor] 40 mg PO DIRECTED 08/14/24 [History] Divalproex ER [Depakote ER] 500 mg PO BID@0800,1700 08/14/24 [History] Levothyroxine Sodium [Synthroid] 175 mcg PO DAILY@0600 08/14/24 [History] Metoclopramide [Reglan] 5 mg PO AC-TID PRN 08/14/24 [History] Pantoprazole [Protonix] 40 mg PO DAILY@0600 08/14/24 [History] Sertraline [Zoloft] 200 mg PO DAILY@0800 08/14/24 [History] traZODone HCL [Desyrel] 50 mg PO HS 08/14/24 [History] ALPRAZolam [Xanax] 0.25 mg PO BID PRN 09/04/24 [History] Calcium Acetate [PhosLo] 2,001 mg PO TID-W/MEALS 09/04/24 [History] Calcium Acetate [PhosLo] 667 mg PO DAILY PRN 09/04/24 [History] Colchicine [Colcrys] 0.3 mg PO DAILY #15 each 09/23/24 [Rx] Labetalol [Trandate] 500 mg PO BID #150 tab 09/23/24 [Rx] NIFEdipine XL [Procardia XL] 60 mg PO BID #60 tab 09/23/24 [Rx] hydrALAZINE HCL [Apresoline] 100 mg PO TID #90 tab 09/23/24 [Rx] Triphrocaps 1mg Cap 1 cap PO DAILY 10/10/24 [History] Gabapentin [Neurontin] 600 mg PO TID 11/02/24 [History] Insulin Aspart (For Pump) [NovoLOG (For Pump)] 0.01 unit SQ-PUMP CONTINUOUS 11/02/24 [History] Ondansetron Odt [Zofran ODT] 4 mg PO Q8HR PRN 11/02/24 [History] oxyCODONE-APAP 10-325MG [Percocet 10-325 mg] 1 tab PO Q4HR PRN 11/02/24 [History] Isosorbide Mononitrate ER [Imdur] 120 mg PO DAILY tab 11/17/24 [Rx] cloNIDine HCL [Catapres] 0.3 mg PO TID tab 11/17/24 [Rx] Follow up Appointment(s)/Referral(s): None,Stated [Primary Care Provider] - 1-2 days Discharge Disposition: HOME SELF-CARE
[2024-11-17 11:42] LABS: Glucose,Whole Blood 110 mg/dL (70-110)
--- NOTE | 2024-11-17 16:28 | P.PN ---
Subjective Patient is seen for follow-up for end-stage renal disease. Patient is scheduled for extra hemodialysis treatment today. No significant complaints Objective - Vital Signs Vital signs: Vital Signs Temp 98.3 F 11/17/24 08:20 Pulse 74 11/17/24 11:25 Resp 16 11/17/24 14:34 BP 113/67 11/17/24 11:25 Pulse Ox 100 11/17/24 11:25 FiO2 40 11/14/24 08:19 Intake & Output 11/16/24 11/17/24 11/17/24 18:59 06:59 18:59 Intake Total 1080 961 222 Output Total 6200 Balance 1080 -8330 222 Weight 67.4 kg Intake: Oral 1080 761 222 Hemodialysis 200 Output: Hemodialysis 3200 Hemodialysis Net Amount 3000 Other: Voiding Method Toilet Toilet Toilet # Voids 0 # Bowel Movements 0 - Exam patient is awake, comfortable, no acute distress. Examination of the heart S1 and S2 Examination the lungs bilateral breath sounds are heard Abdomen is soft nontender Examination lower extremities shows no significant edema Left upper extremity is wrapped. Patient has a newly placed left forearm AV graft - Labs CBC & Chem 7: 11/17/24 05:58 11/17/24 05:58 Labs: Abnormal Lab Results - Last 24 Hours (Table) 11/16/24 11/16/24 11/17/24 Range/Units 16:44 20:39 05:58 RBC 2.55 L (3.80-5.40) m/uL Hgb 8.3 L (11.4-16.0) gm/dL Hct 26.3 L (34.0-46.0) % MCV 103.1 H (80.0-100.0) fL RDW 19.1 H (11.5-15.5) % Eosinophils # 1.4 H (0-0.7) k/uL Sodium (137-145) mmol/L Chloride (98-107) mmol/L BUN (7-17) mg/dL Creatinine (0.52-1.04) mg/dL Glucose (74-99) mg/dL POC Glucose (mg/dL) 150 H 147 H (70-110) mg/dL Phosphorus (2.5-4.5) mg/dL 11/17/24 Range/Units 05:58 RBC (3.80-5.40) m/uL Hgb (11.4-16.0) gm/dL Hct (34.0-46.0) % MCV (80.0-100.0) fL RDW (11.5-15.5) % Eosinophils # (0-0.7) k/uL Sodium 132 L (137-145) mmol/L Chloride 94 L (98-107) mmol/L BUN 34 H (7-17) mg/dL Creatinine 4.79 H (0.52-1.04) mg/dL Glucose 102 H (74-99) mg/dL POC Glucose (mg/dL) (70-110) mg/dL Phosphorus 6.3 H (2.5-4.5) mg/dL Assessment and Plan Assessment: 1. End-stage renal disease on hemodialysis on Wednesday as outpatient 2. Acute hypoxic respiratory failure, improved 3. Hypertensive emergency, improved 4. Status post recent left forearm AV graft Plan: Hemodialysis today Patient can be discharged postdialysis. She will repeat hemodialysis in a.m. as outpatient.
[2024-11-17 16:44] LABS: Glucose,Whole Blood 77 mg/dL (70-110)
[2024-11-17 16:53] VITALS: BP 139/79
[2024-11-17 17:17] VITALS: PULSE 71
== END 2024-11-17 17:30 | disposition home or self-care (01) | DRG 291 ==
LOC: EC 01:13 → 3SCARD 03:08
PROVIDERS: ADMIT Internal Medicine; ATTEND Internal Medicine
PROC: 5A09457 Assistance with Respiratory Ventilation, 24-96 Consecutive Hours, Continuous Positive Airway Pressure (ICD-10-PCS; principal; 2024-11-14)
PROC: 5A1D70Z Performance of Urinary Filtration, Intermittent, Less than 6 Hours Per Day (ICD-10-PCS; 2024-11-16)
DX: I13.2 Hypertensive heart and chronic kidney disease with heart failure and with stage 5 chronic kidney disease, or end stage renal disease (principal); J96.01 Acute respiratory failure with hypoxia; N18.6 End stage renal disease; I16.1 Hypertensive emergency; I50.9 Heart failure, unspecified; E10.22 Type 1 diabetes mellitus with diabetic chronic kidney disease; E03.9 Hypothyroidism, unspecified; G40.909 Epilepsy, unspecified, not intractable, without status epilepticus; K21.9 Gastro-esophageal reflux disease without esophagitis; F17.200 Nicotine dependence, unspecified, uncomplicated; Z99.2 Dependence on renal dialysis; Z96.41 Presence of insulin pump (external) (internal); Z79.4 Long term (current) use of insulin; Z79.890 Hormone replacement therapy; Z79.82 Long term (current) use of aspirin; Z88.8 Allergy status to other drugs, medicaments and biological substances; Z88.6 Allergy status to analgesic agent; Z91.030 Bee allergy status; Z86.73 Personal history of transient ischemic attack (TIA), and cerebral infarction without residual deficits
CPT/HCPCS: 36415; 71045; 80048; 80053; 83735; 83880; 84100; 85025; 85610; 85730; 90935; 93005; 94660; 96365; 96366; 96372; 96375; 96376; 99291

== ENCOUNTER 2024-11-21 14:53 | Observation (INO) | payer MEDICARE ==
--- NOTE | 2024-11-21 15:48 | ED ---
Extremity Problem HPI - General Chief complaint: Extremity Problem,Nontraumatic Stated complaint: Arm Pain Time Seen by Provider: 11/21/24 15:08 Source: patient, RN notes reviewed, old records reviewed Mode of arrival: EMS Limitations: no limitations - History of Present Illness Initial comments: This is a 34-year-old female to the ER for evaluation patient coming in for severe left arm pain history of fistula left arm as well as graft anterior chest Michel catheter. Patient has severe pain and swelling of the left arm which has been going on for about a month unimproved and patient is here for pain control MD Complaint: extremity pain, extremity swelling -: month(s) Location: left, upper extremity History of Same: Yes -: Yes myalgia, Yes arthralgia Radiation: proximal, distal Severity scale (1-10): 10 Quality: aching Consistency: constant Improves with: nothing Worsens with: nothing Associated Symptoms: denies other symptoms - Related Data Home Medications Medication Instructions Recorded Confirmed Docusate [Colace] 100 mg PO DAILY@0800 02/05/24 11/27/24 Lidocaine 4% Patch 1 patch TOPICAL DAILY@0800 02/05/24 11/27/24 Magnesium Hydroxide [Milk of 7,200 mg PO DAILY PRN 02/05/24 11/27/24 Magnesia Concentrate] Acetaminophen [Tylenol] 650 mg PO Q4H PRN 02/18/24 11/27/24 Biotene Dry Mouth/Throat 10 ml PO BID PRN 02/18/24 11/27/24 Butalb/APAP/Caff 50-325-40Mg 1 tab PO Q4HR PRN 03/14/24 11/27/24 [Fioricet 50-325-40] Darbepoetin Artur [Aranesp] 40 mcg SQ MO 03/14/24 11/27/24 Divalproex ER [Depakote ER] 500 mg PO BID@0800,1700 08/14/24 11/27/24 Levothyroxine Sodium [Synthroid] 175 mcg PO DAILY@0600 08/14/24 11/27/24 Metoclopramide [Reglan] 5 mg PO AC-TID PRN 08/14/24 11/27/24 Pantoprazole [Protonix] 40 mg PO DAILY@0600 08/14/24 11/27/24 Sertraline [Zoloft] 200 mg PO DAILY@0800 08/14/24 11/27/24 traZODone HCL [Desyrel] 50 mg PO HS 08/14/24 11/27/24 ALPRAZolam [Xanax] 0.25 mg PO BID PRN 09/04/24 11/27/24 Calcium Acetate [PhosLo] 2,001 mg PO TID-W/MEALS 09/04/24 11/27/24 Calcium Acetate [PhosLo] 667 mg PO DAILY PRN 09/04/24 11/27/24 Triphrocaps 1mg Cap 1 cap PO DAILY 10/10/24 11/27/24 Insulin Aspart (For Pump) [NovoLOG 0.01 unit SQ-PUMP CONTINUOUS 11/02/24 11/27/24 (For Pump)] Ondansetron Odt [Zofran ODT] 4 mg PO Q8HR PRN 11/02/24 11/27/24 Previous Rx's Medication Instructions Recorded Ipratropium-Albuterol Nebulize 3 ml INHALATION RT-TID PRN each 02/14/24 [Duoneb 0.5 mg-3 mg/3 ml Soln] polyethylene glycoL 3350 [Miralax] 17 gm PO AC-LUNCH #527 gm 02/14/24 Melatonin 1 mg PO HS tab 02/25/24 Loratadine [Claritin] 5 mg PO DAILY tab 03/30/24 Aspirin 81 mg PO DAILY@0800 #30 tab 05/18/24 Famotidine [Pepcid] 20 mg PO BID #60 tab 07/11/24 Colchicine [Colcrys] 0.3 mg PO DAILY #15 each 09/23/24 Labetalol [Trandate] 500 mg PO BID #150 tab 09/23/24 NIFEdipine XL [Procardia XL] 60 mg PO BID #60 tab 09/23/24 hydrALAZINE HCL [Apresoline] 100 mg PO TID #90 tab 09/23/24 Isosorbide Mononitrate ER [Imdur] 120 mg PO DAILY tab 11/17/24 cloNIDine HCL [Catapres] 0.3 mg PO TID tab 11/17/24 Atorvastatin [Lipitor] 40 mg PO HS #0 11/23/24 Pregabalin [Lyrica] 200 mg PO BID 15 Days #60 cap 11/23/24 oxyCODONE-APAP 10-325MG [Percocet 1 tab PO Q4HR PRN #18 tab 11/23/24 10-325 mg] Allergies Allergy/AdvReac Type Severity Reaction Status Date / Time hydromorphone HCl Allergy Anaphylaxis Verified 11/27/24 09:33 [From Dilaudid] propoxyphene Allergy Rash/Hives Verified 11/27/24 09:33 [From Darvocet-N] tramadol Allergy Anaphylaxis Verified 11/27/24 09:33 ibuprofen [From Motrin] AdvReac unable to Verified 11/27/24 09:33 take due to kidney disease venom-honey bee AdvReac passes out Verified 11/27/24 09:33 [bee venom (honey bee)] Review of Systems ROS Statement: Those systems with pertinent positive or pertinent negative responses have been documented in the HPI. ROS Other: All systems not noted in ROS Statement are negative. 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 Past Anesthesia/Blood Transfusion Reactions: Previous Problems w/ Anesthesia Additional Past Anesthesia/Blood Transfusion Reaction / Comment(s): confusion Past Psychological History: Anxiety, Depression Smoking Status: Current every day smoker Past Alcohol Use History: None Reported Past Drug Use History: Marijuana, Methamphetamine - Past Family History Father History Unknown: Yes Family Medical History: Unable to Obtain Mother History Unknown: Yes Family Medical History: No Reported History Grandfather History Unknown: Yes Family Medical History: Coronary Artery Disease (CAD) Additional Family Medical History / Comment(s): Diabetes mellitus type 2 General Exam General appearance: alert, in no apparent distress Head exam: Present: atraumatic, normocephalic, normal inspection Eye exam: Present: normal appearance, PERRL, EOMI. Absent: scleral icterus, conjunctival injection, periorbital swelling ENT exam: Present: normal exam, mucous membranes moist Neck exam: Present: normal inspection. Absent: tenderness, meningismus, lymphadenopathy Respiratory exam: Present: normal lung sounds bilaterally. Absent: respiratory distress, wheezes, rales, rhonchi, stridor Cardiovascular Exam: Present: regular rate, normal rhythm, normal heart sounds. Absent: systolic murmur, diastolic murmur, rubs, gallop, clicks GI/Abdominal exam: Present: soft, normal bowel sounds. Absent: distended, tenderness, guarding, rebound, rigid Extremities exam: Present: normal inspection, full ROM, normal capillary refill. Absent: tenderness, pedal edema, joint swelling, calf tenderness Back exam: Present: normal inspection Neurological exam: Present: alert, oriented X3, CN II-XII intact Psychiatric exam: Present: normal affect, normal mood Skin exam: Present: warm, dry, intact, normal color. Absent: rash Course Vital Signs 11/21/24 11/21/24 11/21/24 15:08 17:45 18:09 Temperature 99 F 99.0 F Pulse Rate 101 H 96 Pulse Rate [ Washroom Operator ] Respiratory 18 19 Rate Blood Pressure 207/104 209/107 209/107 Blood Pressure [Right Arm] O2 Sat by Pulse 97 92 L Oximetry 11/21/24 11/21/24 11/21/24 19:25 20:25 22:56 Temperature 98.4 F Pulse Rate 104 H 100 103 H Pulse Rate [ Washroom Operator ] Respiratory 17 Rate Blood Pressure 207/98 208/118 Blood Pressure [Right Arm] O2 Sat by Pulse 76 L 92 L 95 Oximetry 11/21/24 11/21/24 11/22/24 23:15 23:56 03:45 Temperature 98.1 F Pulse Rate 101 H 88 97 Pulse Rate [ Washroom Operator ] Respiratory 16 20 Rate Blood Pressure 206/114 187/102 194/114 Blood Pressure [Right Arm] O2 Sat by Pulse 94 L 95 98 Oximetry 01/07/0911/22/24 11/22/24 04:18 12:16 15:17 Temperature Pulse Rate 99 92 93 Pulse Rate [ Washroom Operator ] Respiratory 20 18 18 Rate Blood Pressure 192/110 194/109 149/95 Blood Pressure [Right Arm] O2 Sat by Pulse 98 97 97 Oximetry 11/22/24 11/22/24 11/22/24 16:05 16:22 18:03 Temperature 98.6 F Pulse Rate 84 Pulse Rate [ 87 Washroom Operator ] Respiratory 18 18 Rate Blood Pressure 156/97 148/85 Blood Pressure 150/96 [Right Arm] O2 Sat by Pulse 99 Oximetry 11/22/24 19:26 Temperature Pulse Rate 86 Pulse Rate [ Washroom Operator ] Respiratory 18 Rate Blood Pressure 129/75 Blood Pressure [Right Arm] O2 Sat by Pulse 99 Oximetry - Reevaluation(s) Reevaluation #1: 11/21/24 18:03 Medical records reviewed Reevaluation #2: 11/21/24 18:03 Patient symptoms unchanged Reevaluation #3: 11/21/24 18:03 Patient informed of results and questions answered Reevaluation #4: Was pt. sent in by a medical professional or institution (, PA, ADMEASURER, urgent c are, hospital, or skilled nursing...) When possible be specific @ -no Did you speak to anyone other than the patient for history (EMS, parent, family, police, friend...)? What history was obtained from this source @ -no Did you review nursing and triage notes (agree or disagree)? Why? @ -agree Are old charts reviewed (outside hosp., previous admission, EMS record, old EKG, old radiological studies, urgent care reports/EKG's, skilled nursing records)? Report findings @ -yes Differential Diagnosis (chest pain, altered mental status, abdominal pain women, abdominal pain men, vaginal bleeding, weakness, fever, dyspnea, syncope, headache, dizziness, GI bleed, back pain, seizure, CVA, palpatations, mental health, musculoskeletal)? @ -prior EKG interpreted by me (3pts min.). @ -yes X-rays interpreted by me (1pt min.). @ -yes negative for acute disease CT interpreted by me (1pt min.). @ -no U/S interpreted by me (1pt. min.). @ -no What testing was considered but not performed or refused? (CT, X-rays, U/S, labs)? Why? @ -none What meds were considered but not given or refused? Why? @ -none Did you discuss the management of the patient with other professionals (professionals i.e. , PA, ADMEASURER, lab, RT, psych nurse, secondary social studies teacher, flume tender, teacher, aviation tactical readiness officer, onsite case manager)? Give summary @ -no Was smoking cessation discussed for >3mins.? @ -no Was critical care preformed (if so, how long)? @ -yes31 Were there social determinants of health that impacted care today? How? (H omelessness, low income, unemployed, alcoholism, drug addiction, transportation, low edu. Level, literacy, decrease access to med. care, detention, rehab)? @ -none Was there de-escalation of care discussed even if they declined (Discuss DNR or withdrawal of care, Hospice)? DNR status @ -no What co-morbidities impacted this encounter? (DM, HTN, Smoking, COPD, CAD, Cancer, CVA, ARF, Chemo, Hep., AIDS, mental health diagnosis, sleep apnea, morbid obesity)? @ -none Was patient admitted / discharged? Hospital course, mention meds given and route, prescriptions, significant lab abnormalities, going to OR and other pertinent info. @ - 34 female to ER for evaluation patient presents today. Patient close left arm pain severe. Patient remains to have severe hypoxia and elevated blood pressure weakness and HyperK and will be admitted Admitted Undiagnosed new problem with uncertain prognosis? @ -no Drug Therapy requiring intensive monitoring for toxicity (Heparin, Nitro, Insulin, Cardizem)? @ -no Were any procedures done? @ -no Diagnosis/symptom? @ -Severely elevated uncontrolled blood pressuresevere arm pain with hypoxia here in the ER, Acute, or Chronic, or Acute on Chronic? @ -Acute Uncomplicated (without systemic symptoms) or Complicated (systemic symptoms)? @ -Complicated Side effects of treatment? @ -no Exacerbation, Progression, or Severe Exacerbation? @ -exacerbation Poses a threat to life or bodily function? How? (Chest pain, [place], [place], pneumonia, PE, COPD, DKA, ARF, appy, cholecystitis, CVA, Diverticulitis, Homicidal, Suicidal, threat to staff... and all critical care pts) @ -yes multiple abnormalities of vital signs and comorbid disease - Consultations Consultation #1: spoke w [facility] who will admit the patient Medical Decision Making - Medical Decision Making 34 female to ER for evaluation patient presents today. Patient close left arm pain severe. Patient remains to have severe hypoxia and elevated blood pressure weakness and HyperK and will be admitted - Lab Data Result diagrams: 11/23/24 03:03 11/23/24 03:03 Lab Results 11/21/24 11/21/24 11/21/24 Range/Units 16:53 16:53 16:53 WBC 11.6 H (3.8-10.6) k/uL RBC 2.96 L (3.80-5.40) m/uL Hgb 9.6 L (11.4-16.0) gm/dL Hct 30.9 L (34.0-46.0) % MCV 104.3 H (80.0-100.0) fL MCH 32.4 (25.0-35.0) pg MCHC 31.1 (31.0-37.0) g/dL RDW 18.7 H (11.5-15.5) % Plt Count 377 (150-450) k/uL MPV 7.6 Neutrophils % 80 % Lymphocytes % 9 % Monocytes % 3 % Eosinophils % 7 % Basophils % 1 % Neutrophils # 9.3 H (1.3-7.7) k/uL Lymphocytes # 1.1 (1.0-4.8) k/uL Monocytes # 0.3 (0-1.0) k/uL Eosinophils # 0.8 H (0-0.7) k/uL Basophils # 0.1 (0-0.2) k/uL Differential Comment P Polychromasia Present Hypochromasia Moderate Poikilocytosis (manual Present Anisocytosis Slight Anisocytosis (manual) Present Macrocytosis Marked A PT 11.9 (10.0-12.5) sec INR 1.1 (<1.2) APTT 27.0 (22.0-30.0) sec Sodium 126 L (137-145) mmol/L Potassium 5.5 H (3.5-5.1) mmol/L Chloride 87 L (98-107) mmol/L Carbon Dioxide 24 (22-30) mmol/L Anion Gap 15 mmol/L BUN 41 H (7-17) mg/dL Creatinine 6.54 H (0.52-1.04) mg/dL Est GFR (CKD-EPI)AfAm 9 (>60 ml/min/1.73 sqM) Est GFR (CKD-EPI)NonAf 8 (>60 ml/min/1.73 sqM) Glucose 486 H (74-99) mg/dL POC Glucose (mg/dL) (70-110) mg/dL POC Glu Asphalt Screed Operator ID Calcium 9.4 (8.4-10.2) mg/dL Phosphorus 6.2 H (2.5-4.5) mg/dL Magnesium 1.9 (1.6-2.3) mg/dL Total Bilirubin 1.0 (0.2-1.3) mg/dL AST 44 H (14-36) U/L ALT 88 H (4-34) U/L Alkaline Phosphatase 241 H (38-126) U/L Total Protein 6.9 (6.3-8.2) g/dL Albumin 4.6 (3.5-5.0) g/dL 11/21/24 Range/Units 20:20 WBC (3.8-10.6) k/uL RBC (3.80-5.40) m/uL Hgb (11.4-16.0) gm/dL Hct (34.0-46.0) % MCV (80.0-100.0) fL MCH (25.0-35.0) pg MCHC (31.0-37.0) g/dL RDW (11.5-15.5) % Plt Count (150-450) k/uL MPV Neutrophils % % Lymphocytes % % Monocytes % % Eosinophils % % Basophils % % Neutrophils # (1.3-7.7) k/uL Lymphocytes # (1.0-4.8) k/uL Monocytes # (0-1.0) k/uL Eosinophils # (0-0.7) k/uL Basophils # (0-0.2) k/uL Differential Comment Polychromasia Hypochromasia Poikilocytosis (manual Anisocytosis Anisocytosis (manual) Macrocytosis PT (10.0-12.5) sec INR (<1.2) APTT (22.0-30.0) sec Sodium (137-145) mmol/L Potassium (3.5-5.1) mmol/L Chloride (98-107) mmol/L Carbon Dioxide (22-30) mmol/L Anion Gap mmol/L BUN (7-17) mg/dL Creatinine (0.52-1.04) mg/dL Est GFR (CKD-EPI)AfAm (>60 ml/min/1.73 sqM) Est GFR (CKD-EPI)NonAf (>60 ml/min/1.73 sqM) Glucose (74-99) mg/dL POC Glucose (mg/dL) 395 H (70-110) mg/dL POC Glu Asphalt Screed Operator ID [place] Calcium (8.4-10.2) mg/dL Phosphorus (2.5-4.5) mg/dL Magnesium (1.6-2.3) mg/dL Total Bilirubin (0.2-1.3) mg/dL AST (14-36) U/L ALT (4-34) U/L Alkaline Phosphatase (38-126) U/L Total Protein (6.3-8.2) g/dL Albumin (3.5-5.0) g/dL - Radiology Data Radiology results: report reviewed (CXR is positive for pulmonary edema), image reviewed Critical Care Time Critical Care Time: Yes Total Critical Care Time: 31 Disposition Clinical Impression: ESRD (end stage renal disease), Left arm pain, Pulmonary edema, Hypoxia, Hypertensive urgency, Renal failure, Hypertensive emergency, Acute respiratory failure Disposition: ADMITTED IP TO THIS HOSP Condition: Fair Is patient prescribed a controlled substance at d/c from ED?: No Time of Disposition: 18:00
[2024-11-21] MEDS: cloNIDine 0.3 MG/24HR PATCH TRANSDERM STA (16:17)
[2024-11-21] MEDS: MORPHINE SULFATE 4 MG/ML SYRINGE IVP STA ×2 (16:48→18:43)
[2024-11-21] MEDS: SODIUM CHLORIDE 0.9% 1,000 ML IV STA (16:49)
[2024-11-21 17:15] LABS: Anisocytosis Slight; Basophils # (A) 0.1 k/uL (0-0.2); Basophils % (A) 1 %; Eosinophils # (A) 0.8 k/uL (0-0.7); Eosinophils % (A) 7 %; HCT 30.9 % (34.0-46.0); HGB 9.6 gm/dL (11.4-16.0); Hypochromasia Moderate; Lymphocytes # (A) 1.1 k/uL (1.0-4.8); Lymphocytes % (A) 9 %; MCH 32.4 pg (25.0-35.0); MCHC 31.1 g/dL (31.0-37.0); MCV 104.3 fL (80.0-100.0); Macrocytosis Marked; Mean Platelet Volume 7.6; Monocytes # (A) 0.3 k/uL (0-1.0); Monocytes % (A) 3 %; Neutrophils # (A) 9.3 k/uL (1.3-7.7); Neutrophils % (A) 80 %; Platelet Count 377 k/uL (150-450); RBC 2.96 m/uL (3.80-5.40); RDW 18.7 % (11.5-15.5); WBC 11.6 k/uL (3.8-10.6)
[2024-11-21 17:18] LABS: ALT 88 U/L (4-34); AST 44 U/L (14-36); African American GFR (CKD) 9 (>60 ml/min/1.73 sqM); Albumin 4.6 g/dL (3.5-5.0); Alkaline Phosphatase 241 U/L (38-126); Anion Gap 15 mmol/L; Blood Urea Nitrogen 41 mg/dL (7-17); Calcium 9.4 mg/dL (8.4-10.2); Carbon Dioxide 24 mmol/L (22-30); Chloride 87 mmol/L (98-107); Glucose 486 mg/dL (74-99); INR 1.1 (<1.2); Magnesium 1.9 mg/dL (1.6-2.3); Non-African American GFR(CKD) 8 (>60 ml/min/1.73 sqM); Phosphorus 6.2 mg/dL (2.5-4.5); Potassium 5.5 mmol/L (3.5-5.1); Prothrombin Time 11.9 sec (10.0-12.5); Sodium 126 mmol/L (137-145); Total Protein 6.9 g/dL (6.3-8.2)
[2024-11-21 17:34] LABS: Anisocytosis (M) Present; Poikilocytosis (M) Present
[2024-11-21 17:35] LABS: Polychromasia Present
[2024-11-21] MEDS: INSULIN REGULAR 100 UNIT/ML VIAL (IV) IV ONE (18:46)
[2024-11-21] MEDS: DEXTROSE 50% SYRINGE 50 ML IVP STA (18:50)
[2024-11-21] MEDS: SODIUM BICARB 8.4% 50 ML SYR (1 MEQ/ML) IV STA (18:50)
[2024-11-21] MEDS: SODIUM CHLORIDE 0.9% 500 ML 500 ML IV STA (18:54)
[2024-11-21] MEDS: SODIUM ZIRCONIUM CYCLOSILICATE 10 GM PACKET PO ONE (19:03)
[2024-11-21 20:22] LABS: Glucose,Whole Blood 395 mg/dL (70-110)
--- NOTE | 2024-11-21 20:44 | XR ---
EXAMINATION TYPE: XR chest 2V DATE OF EXAM: 11/21/2024 7:58 PM COMPARISON: 11/14/2024 CLINICAL INDICATION: Female, 34 years old with history of chf, TECHNIQUE: XR chest 2V view(s) obtained. FINDINGS: The heart size is enlarged. The pulmonary vasculature is prominent. Mild diffuse increased lung markings may be present. Port is present on the right with the tips in th e right atrium.. IMPRESSION: 1. Clinical correlation is recommended for mild congestive heart failure [facility], Workstation: [facility], 11/21/2024 8:41 PM
[2024-11-21] MEDS ORDERED: NALOXONE 0.4 MG/ML 1 ML VIAL IV PRN (21:13)
[2024-11-21] MEDS: LABETALOL 5 MG/ML VIAL MDV IVP STA (23:22)
[2024-11-21] MEDS: SODIUM CHLORIDE 0.9% 1,000 ML IV SCH (23:27)
[2024-11-22 07:49] LABS: ALT 75 U/L (4-34); AST 28 U/L (14-36); African American GFR (CKD) 7 (>60 ml/min/1.73 sqM); Albumin 4.6 g/dL (3.5-5.0); Alkaline Phosphatase 201 U/L (38-126); Anion Gap 16 mmol/L; Blood Urea Nitrogen 45 mg/dL (7-17); Calcium 9.7 mg/dL (8.4-10.2); Carbon Dioxide 26 mmol/L (22-30); Chloride 90 mmol/L (98-107); Glucose 166 mg/dL (74-99); Magnesium 1.9 mg/dL (1.6-2.3); Non-African American GFR(CKD) 6 (>60 ml/min/1.73 sqM); Phosphorus 7.3 mg/dL (2.5-4.5); Sodium 132 mmol/L (137-145); Total Bilirubin 0.8 mg/dL (0.2-1.3); Total Protein 6.9 g/dL (6.3-8.2)
[2024-11-22 07:50] LABS: Anisocytosis Slight; Basophils # (A) 0.1 k/uL (0-0.2); Basophils % (A) 1 %; Eosinophils % (A) 6 %; HGB 10.2 gm/dL (11.4-16.0); Hypochromasia Slight; Lymphocytes # (A) 1.2 k/uL (1.0-4.8); Lymphocytes % (A) 6 %; MCH 32.1 pg (25.0-35.0); MCV 103.7 fL (80.0-100.0); Macrocytosis Marked; Mean Platelet Volume 8.1; Monocytes # (A) 0.4 k/uL (0-1.0); Monocytes % (A) 2 %; Neutrophils # (A) 15.3 k/uL (1.3-7.7); Neutrophils % (A) 84 %; Platelet Count 374 k/uL (150-450); RBC 3.19 m/uL (3.80-5.40); RDW 19.2 % (11.5-15.5); WBC 18.1 k/uL (3.8-10.6)
[2024-11-22] MEDS ORDERED: IPRATROPIUM-ALBUTEROL 3 ML NEB INHALATION PRN (10:57)
[2024-11-22] MEDS ORDERED: BUTALB/APAP/CAFF 50-325-40MG TAB PO PRN (10:57)
[2024-11-22] MEDS ORDERED: ACETAMINOPHEN TAB 325 MG TAB PO PRN (10:57)
[2024-11-22] MEDS ORDERED: METOCLOPRAMIDE 5 MG TAB PO PRN (10:57)
[2024-11-22] MEDS ORDERED: MAGNESIUM HYDROXIDE 2,400 MG/30 ML CUP PO PRN (10:57)
[2024-11-22] MEDS ORDERED: MELATONIN 1 MG TAB PO PRN (10:57)
[2024-11-22] MEDS ORDERED: CALCIUM ACETATE 667 MG TAB PO PRN (10:57)
[2024-11-22] MEDS ORDERED: ONDANSETRON ODT 4 MG TAB PO PRN (10:57)
--- NOTE | 2024-11-22 12:21 | P.HPIM ---
History of Present Illness 34-year-old female with with a graft in the left arm for end-stage renal disease hemodialysis purposes came in with severe pain and swelling in the left arm there is no increased redness left arm is tender to touch 10 x 10 pain with lo calized of temperature. REVIEW OF SYSTEMS: All other systems are negative except those mentioned in the HPI PHYSICAL EXAMINATION: GENERAL: The patient is alert and oriented x3, not in any acute distress. Well developed, well nourished. HEENT: Pupils are round and equally reacting to light. EOMI. No scleral icterus. No conjunctival pallor. Normocephalic, atraumatic. No pharyngeal erythema. No thyromegaly. CARDIOVASCULAR: S1 and S2 present. No murmurs, rubs, or gallops. PULMONARY: Chest is clear to auscultation, no wheezing or crackles. ABDOMEN: Soft, nontender, nondistended, normoactive bowel sounds. No palpable organomegaly. MUSCULOSKELETAL: No joint swelling or deformity. Left thumb is swollen localized of temperature severe tenderness to touch EXTREMITIES: No cyanosis, clubbing, or pedal edema. NEUROLOGICAL: Gross neurological examination did not reveal any focal deficits. SKIN: No rashes. Assessment and plan -Left arm pain severe: Concern for complex regional pain syndrome although patient does not have any bluish discoloration of the left arm. Patient has a graft in that arm, vascular surgery will be consulted. Because of severe tenderness unfortunately I cannot get any ultrasound x-ray will be obtained. Patient is allergic to hydromorphone will be started on fentanyl patch. Prefer not to use morphine because of her end-stage renal disease -Type 2 diabetes mellitus on insulin pump which will be resumed -Hypertension uncontrolled accelerated hypertension patient will be resumed on home medications patient blood pressures are usually high -Gastroesophageal flux disease -End-stage renal disease hemodialysis dependent 4 times a week. Patient does bhardwaj ve mild pulm edema on the x-ray nephrology will evaluate the patient -Hyponatremia secondary to end-stage renal disease -Leukocytosis due to assessment #1 -Hypothyroidism -Seizure disorder -Depression DVT prophylaxis: Subcutaneous heparin Past Medical History Past Medical History: Diabetes Mellitus, GERD/Reflux, Hypertension, Renal Disease, Seizure Disorder, Thyroid Disorder Additional Past Medical History / Comment(s): Neuropathy, last seizure 2020, gastroparesis, headaches with dialysis, states "fast heart rate" since giving ., receives Hemodialysis [facility]- and Saturdays at [facility] right chest hemodialysis catheter., severe HTN, hx of c-diff 2013., 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 Past Anesthesia/Blood Transfusion Reactions: Previous Problems w/ Anesthesia Additional Past Anesthesia/Blood Transfusion Reaction / Comment(s): confusion Past Psychological History: Anxiety, Depression Smoking Status: Current every day smoker Past Alcohol Use History: None Reported Past Drug Use History: Marijuana, Methamphetamine - Past Family History Father History Unknown: Yes Family Medical History: Unable to Obtain Mother History Unknown: Yes Family Medical History: No Reported History Grandfather History Unknown: Yes Family Medical History: Coronary Artery Disease (CAD) Additional Family Medical History / Comment(s): Diabetes mellitus type 2 Medications and Allergies Home Medications Medication Instructions Recorded Confirmed Type Docusate [Colace] 100 mg PO DAILY@0800 02/05/24 11/22/24 History Lidocaine 4% Patch 1 patch TOPICAL DAILY@0800 02/05/24 11/22/24 History Magnesium Hydroxide [Milk of 7,200 mg PO DAILY PRN 02/05/24 11/22/24 History Magnesia Concentrate] Ipratropium-Albuterol Nebulize 3 ml INHALATION RT-TID PRN each 02/14/24 11/22/24 Rx [Duoneb 0.5 mg-3 mg/3 ml Soln] polyethylene glycoL 3350 [Miralax] 17 gm PO AC-LUNCH #527 gm 02/14/24 11/22/24 Rx Acetaminophen [Tylenol] 650 mg PO Q4H PRN 02/18/24 11/22/24 History Biotene Dry Mouth/Throat 10 ml PO BID PRN 02/18/24 11/22/24 History Melatonin 1 mg PO HS tab 02/25/24 11/22/24 Rx Butalb/APAP/Caff 50-325-40Mg 1 tab PO Q4HR PRN 03/14/24 11/22/24 History [Fioricet 50-325-40] Darbepoetin Artur [Aranesp] 40 mcg SQ MO 03/14/24 11/22/24 History Loratadine [Claritin] 5 mg PO DAILY tab 03/30/24 11/22/24 Rx Aspirin 81 mg PO DAILY@0800 #30 tab 05/18/24 11/22/24 Rx Famotidine [Pepcid] 20 mg PO BID #60 tab 07/11/24 11/22/24 Rx Atorvastatin [Lipitor] 40 mg PO DIRECTED 08/14/24 11/22/24 History Divalproex ER [Depakote ER] 500 mg PO BID@0800,1700 08/14/24 11/22/24 History Levothyroxine Sodium [Synthroid] 175 mcg PO DAILY@0600 08/14/24 11/22/24 History Metoclopramide [Reglan] 5 mg PO AC-TID PRN 08/14/24 11/22/24 History Pantoprazole [Protonix] 40 mg PO DAILY@0600 08/14/24 11/22/24 History Sertraline [Zoloft] 200 mg PO DAILY@0800 08/14/24 11/22/24 History traZODone HCL [Desyrel] 50 mg PO HS 08/14/24 11/22/24 History ALPRAZolam [Xanax] 0.25 mg PO BID PRN 09/04/24 11/22/24 History Calcium Acetate [PhosLo] 2,001 mg PO TID-W/MEALS 09/04/24 11/22/24 History Calcium Acetate [PhosLo] 667 mg PO DAILY PRN 09/04/24 11/22/24 History Colchicine [Colcrys] 0.3 mg PO DAILY #15 each 09/23/24 11/22/24 Rx Labetalol [Trandate] 500 mg PO BID #150 tab 09/23/24 11/22/24 Rx NIFEdipine XL [Procardia XL] 60 mg PO BID #60 tab 09/23/24 11/22/24 Rx hydrALAZINE HCL [Apresoline] 100 mg PO TID #90 tab 09/23/24 11/22/24 Rx Triphrocaps 1mg Cap 1 cap PO DAILY 10/10/24 11/22/24 History Insulin Aspart (For Pump) [NovoLOG 0.01 unit SQ-PUMP CONTINUOUS 11/02/24 11/22/24 History (For Pump)] Ondansetron Odt [Zofran ODT] 4 mg PO Q8HR PRN 11/02/24 11/22/24 History oxyCODONE-APAP 10-325MG [Percocet 1 tab PO Q4HR PRN 11/02/24 11/22/24 History 10-325 mg] Isosorbide Mononitrate ER [Imdur] 120 mg PO DAILY tab 11/17/24 11/22/24 Rx cloNIDine HCL [Catapres] 0.3 mg PO TID tab 11/17/24 11/22/24 Rx Gabapentin [Neurontin] 600 mg PO TID #90 cap 11/21/24 Rx HYDROcodone/APAP 10-325MG [[place] 1 tab PO Q6H PRN #12 tab 11/21/24 Rx 10-325] Allergies Allergy/AdvReac Type Severity Reaction Status Date / Time hydromorphone HCl Allergy Anaphylaxis Verified 11/22/24 07:48 [From Dilaudid] propoxyphene Allergy Rash/Hives Verified 11/22/24 07:48 [From Darvocet-N] tramadol Allergy Anaphylaxis Verified 11/22/24 07:48 ibuprofen [From Motrin] AdvReac unable to Verified 11/22/24 07:48 take due to kidney disease venom-honey bee AdvReac passes out Verified 11/22/24 07:48 [bee venom (honey bee)] Physical Exam Vitals: Vital Signs Temp Pulse Resp BP Pulse Ox 11/22/24 12:16 92 18 194/109 97 11/22/24 04:18 99 20 192/110 98 11/22/24 03:45 97 20 194/114 98 11/21/24 23:56 88 187/102 95 11/21/24 23:15 98.1 F 101 H 16 206/114 94 L 11/21/24 22:56 103 H 17 208/118 95 11/21/24 20:25 100 92 L 11/21/24 19:25 98.4 F 104 H 207/98 76 L 11/21/24 18:09 209/107 11/21/24 17:45 99.0 F 96 19 209/107 92 L 11/21/24 15:08 99 F 101 H 18 207/104 97 Intake and Output 11/21/24 11/22/24 11/22/24 22:59 06:59 14:59 Other: Weight 60.781 kg Results CBC & Chem 7: 11/22/24 06:19 11/22/24 06:19 Labs: Abnormal Lab Results - Last 24 Hours (Table) 11/21/24 11/21/24 11/21/24 Range/Units 16:53 16:53 20:20 WBC 11.6 H (3.8-10.6) k/uL RBC 2.96 L (3.80-5.40) m/uL Hgb 9.6 L (11.4-16.0) gm/dL Hct 30.9 L (34.0-46.0) % MCV 104.3 H (80.0-100.0) fL RDW 18.7 H (11.5-15.5) % Neutrophils # 9.3 H (1.3-7.7) k/uL Eosinophils # 0.8 H (0-0.7) k/uL Macrocytosis Marked A Sodium 126 L (137-145) mmol/L Potassium 5.5 H (3.5-5.1) mmol/L Chloride 87 L (98-107) mmol/L BUN 41 H (7-17) mg/dL Creatinine 6.54 H (0.52-1.04) mg/dL Glucose 486 H (74-99) mg/dL POC Glucose (mg/dL) 395 H (70-110) mg/dL Phosphorus 6.2 H (2.5-4.5) mg/dL AST 44 H (14-36) U/L ALT 88 H (4-34) U/L Alkaline Phosphatase 241 H (38-126) U/L 11/22/24 11/22/24 Range/Units 06:19 06:19 WBC 18.1 H (3.8-10.6) k/uL RBC 3.19 L (3.80-5.40) m/uL Hgb 10.2 L (11.4-16.0) gm/dL Hct 33.0 L (34.0-46.0) % MCV 103.7 H (80.0-100.0) fL RDW 19.2 H (11.5-15.5) % Neutrophils # 15.3 H (1.3-7.7) k/uL Eosinophils # 1.0 H (0-0.7) k/uL Macrocytosis Marked A Sodium 132 L (137-145) mmol/L Potassium (3.5-5.1) mmol/L Chloride 90 L (98-107) mmol/L BUN 45 H (7-17) mg/dL Creatinine 7.71 H* (0.52-1.04) mg/dL Glucose 166 H (74-99) mg/dL POC Glucose (mg/dL) (70-110) mg/dL Phosphorus 7.3 H (2.5-4.5) mg/dL AST (14-36) U/L ALT 75 H (4-34) U/L Alkaline Phosphatase 201 H (38-126) U/L
[2024-11-22] MEDS: CALCIUM ACETATE 667 MG TAB PO SCH (12:23)
[2024-11-22] MEDS: LABETALOL 200 MG TAB PO SCH (12:23)
[2024-11-22] MEDS: FAMOTIDINE 20 MG TAB PO SCH (12:23)
[2024-11-22] MEDS: ISOSORBIDE MONONITRATE ER 60 MG TAB.ER.24H PO SCH (12:24)
[2024-11-22] MEDS: polyethylene glycoL 3350 17 GM POWD.PACK PO SCH (12:24)
[2024-11-22] MEDS ORDERED: polyethylene glycoL 3350 17 GM POWD.PACK PO PRN (12:24)
--- NOTE | 2024-11-22 13:30 | P.NPCON ---
History of Present Illness - Reason for Consult end stage renal disease - History of Present Illness Patient is a 34-year-old female with end-stage renal disease on hemodialysis on Wednesday schedule. Patient is admitted to the hospital with severe pain in her left arm at the site of the left forearm AV graft. No history of fever or chills. Arm is swollen. Blood pressure is elevated. Patient denies any shortness of breath. She will be scheduled for hemodialysis today. 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 Past Anesthesia/Blood Transfusion Reactions: Previous Problems w/ Anesthesia Additional Past Anesthesia/Blood Transfusion Reaction / Comment(s): confusion Past Psychological History: Anxiety, Depression Smoking Status: Current every day smoker Past Alcohol Use History: None Reported Past Drug Use History: Marijuana, Methamphetamine - Past Family History Father History Unknown: Yes Family Medical History: Unable to Obtain Mother History Unknown: Yes Family Medical History: No Reported History Grandfather History Unknown: Yes Family Medical History: Coronary Artery Disease (CAD) Additional Family Medical History / Comment(s): Diabetes mellitus type 2 Medications and Allergies Home Medications Medication Instructions Recorded Confirmed Type Docusate [Colace] 100 mg PO DAILY@0800 02/05/24 11/22/24 History Lidocaine 4% Patch 1 patch TOPICAL DAILY@0800 02/05/24 11/22/24 History Magnesium Hydroxide [Milk of 7,200 mg PO DAILY PRN 02/05/24 11/22/24 History Magnesia Concentrate] Ipratropium-Albuterol Nebulize 3 ml INHALATION RT-TID PRN each 02/14/24 11/22/24 Rx [Duoneb 0.5 mg-3 mg/3 ml Soln] polyethylene glycoL 3350 [Miralax] 17 gm PO AC-LUNCH #527 gm 02/14/24 11/22/24 Rx Acetaminophen [Tylenol] 650 mg PO Q4H PRN 02/18/24 11/22/24 History Biotene Dry Mouth/Throat 10 ml PO BID PRN 02/18/24 11/22/24 History Melatonin 1 mg PO HS tab 02/25/24 11/22/24 Rx Butalb/APAP/Caff 50-325-40Mg 1 tab PO Q4HR PRN 03/14/24 11/22/24 History [Fioricet 50-325-40] Darbepoetin Artur [Aranesp] 40 mcg SQ MO 03/14/24 11/22/24 History Loratadine [Claritin] 5 mg PO DAILY tab 03/30/24 11/22/24 Rx Aspirin 81 mg PO DAILY@0800 #30 tab 05/18/24 11/22/24 Rx Famotidine [Pepcid] 20 mg PO BID #60 tab 07/11/24 11/22/24 Rx Atorvastatin [Lipitor] 40 mg PO DIRECTED 08/14/24 11/22/24 History Divalproex ER [Depakote ER] 500 mg PO BID@0800,1700 08/14/24 11/22/24 History Levothyroxine Sodium [Synthroid] 175 mcg PO DAILY@0608/14/24 11/22/24 History Metoclopramide [Reglan] 5 mg PO AC-TID PRN 08/14/24 11/22/24 History Pantoprazole [Protonix] 40 mg PO DAILY@0600 08/14/24 11/22/24 History Sertraline [Zoloft] 200 mg PO DAILY@0800 08/14/24 11/22/24 History traZODone HCL [Desyrel] 50 mg PO HS 08/14/24 11/22/24 History ALPRAZolam [Xanax] 0.25 mg PO BID PRN 09/04/24 11/22/24 History Calcium Acetate [PhosLo] 2,001 mg PO TID-W/MEALS 09/04/24 11/22/24 History Calcium Acetate [PhosLo] 667 mg PO DAILY PRN 09/04/24 11/22/24 History Colchicine [Colcrys] 0.3 mg PO DAILY #15 each 09/23/24 11/22/24 Rx Labetalol [Trandate] 500 mg PO BID #150 tab 09/23/24 11/22/24 Rx NIFEdipine XL [Procardia XL] 60 mg PO BID #60 tab 09/23/24 11/22/24 Rx hydrALAZINE HCL [Apresoline] 100 mg PO TID #90 tab 09/23/24 11/22/24 Rx Triphrocaps 1mg Cap 1 cap PO DAILY 10/10/24 11/22/24 History Insulin Aspart (For Pump) [NovoLOG 0.01 unit SQ-PUMP CONTINUOUS 11/02/24 11/22/24 History (For Pump)] Ondansetron Odt [Zofran ODT] 4 mg PO Q8HR PRN 11/02/24 11/22/24 History oxyCODONE-APAP 10-325MG [Percocet 1 tab PO Q4HR PRN 11/02/24 11/22/24 History 10-325 mg] Isosorbide Mononitrate ER [Imdur] 120 mg PO DAILY tab 11/17/24 11/22/24 Rx cloNIDine HCL [Catapres] 0.3 mg PO TID tab 11/17/24 11/22/24 Rx Gabapentin [Neurontin] 600 mg PO TID #90 cap 11/21/24 Rx HYDROcodone/APAP 10-325MG [[place] 1 tab PO Q6H PRN #12 tab 11/21/24 Rx 10-325] Allergies Allergy/AdvReac Type Severity Reaction Status Date / Time hydromorphone HCl Allergy Anaphylaxis Verified 11/22/24 07:48 [From Dilaudid] propoxyphene Allergy Rash/Hives Verified 11/22/24 07:48 [From Darvocet-N] tramadol Allergy Anaphylaxis Verified 11/22/24 07:48 ibuprofen [From Motrin] AdvReac unable to Verified 11/22/24 07:48 take due to kidney disease venom-honey bee AdvReac passes out Verified 11/22/24 07:48 [bee venom (honey bee)] Physical Exam Vitals: Vital Signs Temp Pulse Resp BP Pulse Ox 11/22/24 12:16 92 18 194/109 97 11/22/24 04:18 99 20 192/110 98 11/22/24 03:45 97 20 194/114 98 11/21/24 23:56 88 187/102 95 11/21/24 23:15 98.1 F 101 H 16 206/114 94 L 11/21/24 22:56 103 H 17 208/118 95 11/21/24 20:25 100 92 L 11/21/24 19:25 98.4 F 104 H 207/98 76 L 11/21/24 18:09 209/107 11/21/24 17:45 99.0 F 96 19 209/107 92 L 11/21/24 15:08 99 F 101 H 18 207/104 97 Intake and Output 11/21/24 11/22/24 11/22/24 22:59 06:59 14:59 Other: Weight 60.781 kg Patient is awake, comfortable, no acute distress. Examination of the heart S1 and S2 Examination of the lungs bilateral breath sounds are heard Abdomen is soft nontender Examination of the left arm shows significant swelling and tenderness in the left forearm. AV graft is functional. Bruit is heard No edema noted in the lower extremities [employer] exam grossly intact Results - Lab Results Most recent lab results Calcium 9.7 mg/dL (8.4-10.2) 11/22/24 06:19 Phosphorus 7.3 mg/dL (2.5-4.5) H 11/22/24 06:19 Magnesium 1.9 mg/dL (1.6-2.3) 11/22/24 06:19 11/22/24 06:19 11/22/24 06:19 Assessment and Plan Assessment: 1. End-stage renal disease on hemodialysis on Wednesday schedule via IJ permacath 2. Volume overload 3. Pain and swelling left forearm at the site of AV graft 4. CKD mineral bone disorder 5. Hypertensive urgency partly volume sensitive Plan: Hemodialysis today and in a.m. Consult vascular surgery regarding left forearm AV graft Continue phosphate binders
[2024-11-22 13:32] LABS: Glucose,Whole Blood 132 mg/dL (70-110)
[2024-11-22] MEDS: Insulin Aspart (For Pump) 100 UNIT/ML VIAL SQ-PUMP SCH (13:32)
[2024-11-22] MEDS: oxyCODONE-APAP 10-325MG 1 EACH TAB PO PRN (15:13)
[2024-11-22] MEDS: cloNIDine HCL 0.1 MG TAB PO SCH (15:14)
[2024-11-22] MEDS: HEPARIN SODIUM,PORCINE 5,000 UNIT/ML 1 ML VIAL SQ SCH (15:17)
--- NOTE | 2024-11-22 15:18 | P.GSCN ---
History of Present Illness Consult date: 11/22/24 Reason for Consult: Left arm swelling, AV fistula Requesting physician: Siva Rosales History of present illness: This is a 34-year-old female with end-stage renal disease on hemodialysis well- known to vascular surgical services. She presented to the emergency department yesterday with complaints of left upper extremity pain and swelling. She did not call the vascular office and states that she just came into the emergency department for evaluation and pain management. She has a tunnel catheter present which is currently in use getting dialysis as well as had a new left upper extremity loop forearm graft that was created on 10/19/2024. Shortly after procedure patient has been having ongoing complaints of pain in the left upper extremity. She has had ultrasounds done that showed patency. She reports pain mostly at the elbow and the wrist. She has full range of motion. States that the pain is sharp, states that you cannot put any pressure or blow on it as it hurts. Review of Systems A 14 point review systems was completed all pertinent positives and negatives as stated in the HPI. 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 Past Anesthesia/Blood Transfusion Reactions: Previous Problems w/ Anesthesia Additional Past Anesthesia/Blood Transfusion Reaction / Comm: confusion Past Psychological History: Anxiety, Depression Smoking Status: Current every day smoker Past Alcohol Use History: None Reported Past Drug Use History: Marijuana, Methamphetamine - Past Family History Father History Unknown: Yes Family Medical History: Unable to Obtain Mother History Unknown: Yes Family Medical History: No Reported History Grandfather History Unknown: Yes Family Medical History: Coronary Artery Disease (CAD) Additional Family Medical History / Comment(s): Diabetes mellitus type 2 Medications and Allergies Home Medications Medication Instructions Recorded Confirmed Type Docusate [Colace] 100 mg PO DAILY@0800 02/05/24 11/22/24 History Lidocaine 4% Patch 1 patch TOPICAL DAILY@0800 02/05/24 11/22/24 History Magnesium Hydroxide [Milk of 7,200 mg PO DAILY PRN 02/05/24 11/22/24 History Magnesia Concentrate] Ipratropium-Albuterol Nebulize 3 ml INHALATION RT-TID PRN each 02/14/24 11/22/24 Rx [Duoneb 0.5 mg-3 mg/3 ml Soln] polyethylene glycoL 3350 [Miralax] 17 gm PO AC-LUNCH #527 gm 02/14/24 11/22/24 Rx Acetaminophen [Tylenol] 650 mg PO Q4H PRN 02/18/24 11/22/24 History Biotene Dry Mouth/Throat 10 ml PO BID PRN 02/18/24 11/22/24 History Melatonin 1 mg PO HS tab 02/25/24 11/22/24 Rx Butalb/APAP/Caff 50-325-40Mg 1 tab PO Q4HR PRN 03/14/24 11/22/24 History [Fioricet 50-325-40] Darbepoetin Artur [Aranesp] 40 mcg SQ MO 03/14/24 11/22/24 History Loratadine [Claritin] 5 mg PO DAILY tab 03/30/24 11/22/24 Rx Aspirin 81 mg PO DAILY@0800 #30 tab 05/18/24 11/22/24 Rx Famotidine [Pepcid] 20 mg PO BID #60 tab 07/11/24 11/22/24 Rx Atorvastatin [Lipitor] 40 mg PO DIRECTED 08/14/24 11/22/24 History Divalproex ER [Depakote ER] 500 mg PO BID@0800,1700 08/14/24 11/22/24 History Levothyroxine Sodium [Synthroid] 175 mcg PO DAILY@0600 08/14/24 11/22/24 History Metoclopramide [Reglan] 5 mg PO AC-TID PRN 08/14/24 11/22/24 History Pantoprazole [Protonix] 40 mg PO DAILY@0608/14/24 11/22/24 History Sertraline [Zoloft] 200 mg PO DAILY@0808/14/24 11/22/24 History traZODone HCL [Desyrel] 50 mg PO HS 08/14/24 11/22/24 History ALPRAZolam [Xanax] 0.25 mg PO BID PRN 09/04/24 11/22/24 History Calcium Acetate [PhosLo] 2,001 mg PO TID-W/MEALS 09/04/24 11/22/24 History Calcium Acetate [PhosLo] 667 mg PO DAILY PRN 09/04/24 11/22/24 History Colchicine [Colcrys] 0.3 mg PO DAILY #15 each 09/23/24 11/22/24 Rx Labetalol [Trandate] 500 mg PO BID #150 tab 09/23/24 11/22/24 Rx NIFEdipine XL [Procardia XL] 60 mg PO BID #60 tab 09/23/24 11/22/24 Rx hydrALAZINE HCL [Apresoline] 100 mg PO TID #90 tab 09/23/24 11/22/24 Rx Triphrocaps 1mg Cap 1 cap PO DAILY 10/10/24 11/22/24 History Insulin Aspart (For Pump) [NovoLOG 0.01 unit SQ-PUMP CONTINUOUS 11/02/24 11/22/24 History (For Pump)] Ondansetron Odt [Zofran ODT] 4 mg PO Q8HR PRN 11/02/24 11/22/24 History oxyCODONE-APAP 10-325MG [Percocet 1 tab PO Q4HR PRN 11/02/24 11/22/24 History 10-325 mg] Isosorbide Mononitrate ER [Imdur] 120 mg PO DAILY tab 11/17/24 11/22/24 Rx cloNIDine HCL [Catapres] 0.3 mg PO TID tab 11/17/24 11/22/24 Rx Gabapentin [Neurontin] 600 mg PO TID #90 cap 11/21/24 Rx HYDROcodone/APAP 10-325MG [[place] 1 tab PO Q6H PRN #12 tab 11/21/24 Rx 10325] Allergies Allergy/AdvReac Type Severity Reaction Status Date / Time hydromorphone HCl Allergy Anaphylaxis Verified 11/22/24 07:48 [From Dilaudid] propoxyphene Allergy Rash/Hives Verified 11/22/24 07:48 [From Darvocet-N] tramadol Allergy Anaphylaxis Verified 11/22/24 07:48 ibuprofen [From Motrin] AdvReac unable to Verified 11/22/24 07:48 take due to kidney disease venom-honey bee AdvReac passes out Verified 11/22/24 07:48 [bee venom (honey bee)] Surgical - Exam Vital Signs Temp Pulse Resp BP Pulse Ox 99 F 101 H 18 207/104 97 11/21/24 15:08 11/21/24 15:08 11/21/24 15:08 11/21/24 15:08 11/21/24 15:08 General appearance: The patient is alert, oriented, appears in no acute distress. HET: Head is normocephalic and atraumatic. Pupils are equal and reactive. Neck: Supple. Heart: Regular. Lungs: Equal expansion, normal respiratory effort. Abdomen: Soft, nondistended. Extremities: Normal skin color and turgor. Left upper extremity with palpable radial pulse, good range of motion, there is some swelling along the left forearm without any swelling. There is palpable thrill and audible bruit at AV graft. Neurological: No focal deficits. Strength and sensation are grossly intact. Results - Labs 11/22/24 06:19 11/22/24 06:19 Abnormal Lab Results - Last 24 Hours (Table) 11/21/24 11/21/24 11/21/24 Range/Units 16:53 16:53 20:20 WBC 11.6 H (3.8-10.6) k/uL RBC 2.96 L (3.80-5.40) m/uL Hgb 9.6 L (11.4-16.0) gm/dL Hct 30.9 L (34.0-46.0) % MCV 104.3 H (80.0-100.0) fL RDW 18.7 H (11.5-15.5) % Neutrophils # 9.3 H (1.3-7.7) k/uL Eosinophils # 0.8 H (0-0.7) k/uL Macrocytosis Marked A Sodium 126 L (137-145) mmol/L Potassium 5.5 H (3.5-5.1) mmol/L Chloride 87 L (98-107) mmol/L BUN 41 H (7-17) mg/dL Creatinine 6.54 H (0.52-1.04) mg/dL Glucose 486 H (74-99) mg/dL POC Glucose (mg/dL) 395 H (70-110) mg/dL Phosphorus 6.2 H (2.5-4.5) mg/dL AST 44 H (14-36) U/L ALT 88 H (4-34) U/L Alkaline Phosphatase 241 H (38-126) U/L 11/22/24 11/22/24 11/22/24 Range/Units 06:19 06:19 13:30 WBC 18.1 H (3.8-10.6) k/uL RBC 3.19 L (3.80-5.40) m/uL Hgb 10.2 L (11.4-16.0) gm/dL Hct 33.0 L (34.0-46.0) % MCV 103.7 H (80.0-100.0) fL RDW 19.2 H (11.5-15.5) % Neutrophils # 15.3 H (1.3-7.7) k/uL Eosinophils # 1.0 H (0-0.7) k/uL Macrocytosis Marked A Sodium 132 L (137-145) mmol/L Potassium (3.5-5.1) mmol/L Chloride 90 L (98-107) mmol/L BUN 45 H (7-17) mg/dL Creatinine 7.71 H* (0.52-1.04) mg/dL Glucose 166 H (74-99) mg/dL POC Glucose (mg/dL) 132 H (70-110) mg/dL Phosphorus 7.3 H (2.5-4.5) mg/dL AST (14-36) U/L ALT 75 H (4-34) U/L Alkaline Phosphatase 201 H (38-126) U/L Diabetes panel 11/21/24 11/22/24 Range/Units 16:53 06:19 Sodium 126 L 132 L (137-145) mmol/L Potassium 5.5 H 5.0 (3.5-5.1) mmol/L Chloride 87 L 90 L (98-107) mmol/L Carbon Dioxide 24 26 (22-30) mmol/L BUN 41 H 45 H (7-17) mg/dL Creatinine 6.54 H 7.71 H* (0.52-1.04) mg/dL Glucose 486 H 166 H (74-99) mg/dL Calcium 9.4 9.7 (8.4-10.2) mg/dL AST 44 H 28 (14-36) U/L ALT 88 H 75 H (4-34) U/L Alkaline Phosphatase 241 H 201 H (38-126) U/L Total Protein 6.9 6.9 (6.3-8.2) g/dL Albumin 4.6 4.6 (3.5-5.0) g/dL Calcium panel 11/21/24 11/22/24 Range/Units 16:53 06:19 Calcium 9.4 9.7 (8.4-10.2) mg/dL Phosphorus 6.2 H 7.3 H (2.5-4.5) mg/dL Albumin 4.6 4.6 (3.5-5.0) g/dL Pituitary panel 11/21/24 11/22/24 Range/Units 16:53 06:19 Sodium 126 L 132 L (137-145) mmol/L Potassium 5.5 H 5.0 (3.5-5.1) mmol/L Chloride 87 L 90 L (98-107) mmol/L Carbon Dioxide 24 26 (22-30) mmol/L BUN 41 H 45 H (7-17) mg/dL Creatinine 6.54 H 7.71 H* (0.52-1.04) mg/dL Glucose 486 H 166 H (74-99) mg/dL Calcium 9.4 9.7 (8.4-10.2) mg/dL Adrenal panel 11/21/24 11/22/24 Range/Units 16:53 06:19 Sodium 126 L 132 L (137-145) mmol/L Potassium 5.5 H 5.0 (3.5-5.1) mmol/L Chloride 87 L 90 L (98-107) mmol/L Carbon Dioxide 24 26 (22-30) mmol/L BUN 41 H 45 H (7-17) mg/dL Creatinine 6.54 H 7.71 H* (0.52-1.04) mg/dL Glucose 486 H 166 H (74-99) mg/dL Calcium 9.4 9.7 (8.4-10.2) mg/dL Total Bilirubin 1.0 0.8 (0.2-1.3) mg/dL AST 44 H 28 (14-36) U/L ALT 88 H 75 H (4-34) U/L Alkaline Phosphatase 241 H 201 H (38-126) U/L Total Protein 6.9 6.9 (6.3-8.2) g/dL Albumin 4.6 4.6 (3.5-5.0) g/dL Assessment and Plan Assessment: 1. Left forearm pain 2. Recent left upper extremity loop AV graft creation 10/19/2024 3. End-stage renal disease on hemodialysis Plan: Left upper extremity has been evaluated. Good palpable radial pulse and range of motion so unlikely any steal syndrome. There is some mild swelling but this has improved from initial procedure. There is otherwise no erythema or drainage. Good palpable thrill and audible bruit. There is no indication for any vascular surgical intervention. This was again discussed with patient and offered patient to get a second opinion as an outpatient. Continue with recommendations from nephrology. Medical management per primary medical team. Thank you for this consultation, patient is cleared by vascular surgery for discharge. The impression and plan of care has been dictated as directed. I performed a history and examination of this patient, discussed the same with the dictator. I agree with the dictator's note ,documented as a scribe. Any additional findings or plans will be noted.
[2024-11-22] MEDS: DIVALPROEX ER 500 MG TAB.ER.24H PO SCH (18:02)
[2024-11-22] MEDS: ATORVASTATIN 40 MG TAB PO SCH (21:15)
[2024-11-22] MEDS: traZODone HCL 50 MG TAB PO SCH (21:16)
[2024-11-23 05:35] LABS: Glucose,Whole Blood 351 mg/dL (70-110)
[2024-11-23] MEDS: PANTOPRAZOLE 40 MG TABLET PO SCH (05:54)
[2024-11-23] MEDS: LEVOTHYROXINE 88 MCG TAB PO SCH (05:55)
[2024-11-23] MEDS: DOCUSATE 100 MG CAP PO SCH (08:59)
[2024-11-23] MEDS: ASPIRIN 81 MG PO SCH (08:59)
[2024-11-23] MEDS: LIDOCAINE 4% PATCH TOPICAL SCH (09:00)
[2024-11-23] MEDS: FAMOTIDINE 20 MG TAB PO SCH (09:00)
[2024-11-23] MEDS: SERTRALINE 100 MG TAB PO SCH (09:00)
[2024-11-23] MEDS: FOLIC ACID-VIT B COMPLEX-VIT C 1 CAP PO SCH (09:00)
[2024-11-23] MEDS: LORATADINE 10 MG TAB PO SCH (09:02)
[2024-11-23] MEDS: ALPRAZolam 0.25 MG TAB PO PRN (09:03)
[2024-11-23 09:20] LABS: HCT 28.2 % (37.2-46.3); MCH 32.1 pg (27.0-32.0); MCHC 31.9 g/dL (32.0-37.0); MCV 100.7 FL (80.0-97.0); Mean Platelet Volume 9.7 FL (9.5-12.2); NRBC Per 100 WBC 0 X 10*3/uL (0.00-0.01); Platelet Count 303 X 10*3/uL (140-440); RDW 18.6 % (11.5-14.5); WBC 9.42 X 10*3/uL (4.50-10.00)
[2024-11-23 09:29] LABS: Blood Urea Nitrogen 26.5 mg/dL (9.0-27.0); Carbon Dioxide 28.5 mmol/L (21.6-31.8); Chloride 88 mmol/L (96-109); Glucose 393 mg/dL (70-110); Potassium 4.2 mmol/L (3.5-5.5); Sodium 132 mmol/L (135-145)
[2024-11-23] MEDS: GABAPENTIN 300 MG CAP PO SCH (10:37)
[2024-11-23 12:31] LABS: Glucose,Whole Blood 497 mg/dL (70-110)
[2024-11-23 13:59] VITALS: RESP 16
--- NOTE | 2024-11-23 14:05 | P.PN ---
Subjective Patient is seen for follow-up for end-stage renal disease. She has been evaluated by vascular surgery. No significant findings on ultrasound. Left forearm AV graft is functional. Swelling seems to have decreased today. Status post UF of 4 L yesterday. Scheduled for dialysis today. Objective - Vital Signs Vital signs: Vital Signs Temp 97.5 F L 11/23/24 13:58 Pulse 67 11/23/24 13:58 Resp 16 11/23/24 13:58 BP 115/61 11/23/24 13:58 Pulse Ox 97 11/23/24 13:58 FiO2 Intake & Output 11/22/24 11/23/24 11/23/24 18:59 06:59 18:59 Intake Total 500 Output Total 8500 Balance -8000 Intake: Hemodialysis 500 Output: Hemodialysis 4500 Hemodialysis Net Amount 4000 Other: # Voids 0 - Exam Patient is awake, comfortable, no acute distress. Examination of the heart S1 and S2 Examination of the lungs bilateral breath sounds are heard Abdomen is soft nontender Examination of the left arm shows swelling in the left forearm to be improved. AV graft is functional. 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 exam grossly intact - Labs CBC & Chem 7: 11/23/24 03:03 11/23/24 03:03 Labs: Abnormal Lab Results - Last 24 Hours (Table) 11/23/24 11/23/24 11/23/24 Range/Units 03:03 03:03 05:27 RBC 2.80 L (4.10-5.20) X 10*6/uL Hgb 9.0 L (12.0-15.0) g/dL Hct 28.2 L (37.2-46.3) % MCV 100.7 H (80.0-97.0) FL MCH 32.1 H (27.0-32.0) pg MCHC 31.9 L (32.0-37.0) g/dL RDW 18.6 H (11.5-14.5) % Sodium 132 L (135-145) mmol/L Chloride 88 L (96-109) mmol/L Anion Gap 15.50 H (4.00-12.00) mmol/L Creatinine 5.3 H (0.6-1.5) mg/dL Est GFR (CKD-EPI) 10 L (>=60) BUN/Creatinine Ratio 5.00 L (12.00-20.00) Ratio Glucose 393 H (70-110) mg/dL POC Glucose (mg/dL) 351 H (70-110) mg/dL 11/23/24 Range/Units 12:28 RBC (4.10-5.20) X 10*6/uL Hgb (12.0-15.0) g/dL Hct (37.2-46.3) % MCV (80.0-97.0) FL MCH (27.0-32.0) pg MCHC (32.0-37.0) g/dL RDW (11.5-14.5) % Sodium (135-145) mmol/L Chloride (96-109) mmol/L Anion Gap (4.00-12.00) mmol/L Creatinine (0.6-1.5) mg/dL Est GFR (CKD-EPI) (>=60) BUN/Creatinine Ratio (12.00-20.00) Ratio Glucose (70-110) mg/dL POC Glucose (mg/dL) 497 H (70-110) mg/dL Assessment and Plan Assessment: 1. End-stage renal disease on hemodialysis on Wednesday schedule via [facility] permacath 2. Volume overload 3. Pain and swelling left forearm at the site of AV graft, seems to be improving 4. CKD mineral bone disorder 5. Hypertensive urgency partly volume sensitive, improved with dialysis and UF Plan: Hemodialysis today Continue phosphate binders
--- NOTE | 2024-11-23 14:08 | P.PN ---
Subjective Progress Note Date: 11/23/24 Principal diagnosis: Left arm pain Patient seen and examined today as a follow-up. States that the pain in her left upper extremity is better. She has been afebrile. No other acute changes. Objective - Vital Signs Vital signs: Vital Signs Temp 97.5 F L 11/23/24 13:58 Pulse 67 11/23/24 13:58 Resp 16 11/23/24 13:58 BP 115/61 11/23/24 13:58 Pulse Ox 97 11/23/24 13:58 FiO2 Intake & Output 11/22/24 11/23/24 11/23/24 18:59 06:59 18:59 Intake Total 500 Output Total 8500 Balance -8000 Intake: Hemodialysis 500 Output: Hemodialysis 4500 Hemodialysis Net Amount 4000 Other: # Voids 0 - Exam General appearance: The patient is alert, oriented, appears in no acute distress. HET: Head is normocephalic and atraumatic. Pupils are equal and reactive. Neck: Supple. Abdomen: Soft, nondistended. Extremities: Normal skin color and turgor. Left forearm with some swelling, palpable thrill and audible bruit. Full range of motion. Palpable radial pulse. Neurological: No focal deficits. Strength and sensation are grossly intact. - Labs CBC & Chem 7: 11/23/24 03:03 11/23/24 03:03 Labs: Abnormal Lab Results - Last 24 Hours (Table) 11/23/24 11/23/24 11/23/24 Range/Units 03:03 03:03 05:27 RBC 2.80 L (4.10-5.20) X 10*6/uL Hgb 9.0 L (12.0-15.0) g/dL Hct 28.2 L (37.2-46.3) % MCV 100.7 H (80.0-97.0) FL MCH 32.1 H (27.0-32.0) pg MCHC 31.9 L (32.0-37.0) g/dL RDW 18.6 H (11.5-14.5) % Sodium 132 L (135-145) mmol/L Chloride 88 L (96-109) mmol/L Anion Gap 15.50 H (4.00-12.00) mmol/L Creatinine 5.3 H (0.6-1.5) mg/dL Est GFR (CKD-EPI) 10 L (>=60) BUN/Creatinine Ratio 5.00 L (12.00-20.00) Ratio Glucose 393 H (70-110) mg/dL POC Glucose (mg/dL) 351 H (70-110) mg/dL 11/23/24 Range/Units 12:28 RBC (4.10-5.20) X 10*6/uL Hgb (12.0-15.0) g/dL Hct (37.2-46.3) % MCV (80.0-97.0) FL MCH (27.0-32.0) pg MCHC (32.0-37.0) g/dL RDW (11.5-14.5) % Sodium (135-145) mmol/L Chloride (96-109) mmol/L Anion Gap (4.00-12.00) mmol/L Creatinine (0.6-1.5) mg/dL Est GFR (CKD-EPI) (>=60) BUN/Creatinine Ratio (12.00-20.00) Ratio Glucose (70-110) mg/dL POC Glucose (mg/dL) 497 H (70-110) mg/dL Assessment and Plan Assessment: 1. Left forearm pain 2. Recent left upper extremity loop AV graft creation 10/19/2024 3. End-stage renal disease on hemodialysis Plan: Left upper extremity has been evaluated. Good palpable radial pulse and range of motion so unlikely any steal syndrome. There is some mild swelling but this has improved from initial procedure. There is otherwise no erythema or drainage. Good palpable thrill and audible bruit. There is no indication for a ny vascular surgical intervention. This was again discussed with patient and offered patient to get a second opinion as an outpatient. Continue with recommendations from nephrology. Medical management per primary medical team. Thank you for this consultation, patient is cleared by vascular surgery for discharge. We will sign off at this time. The impression and plan of care has been dictated as directed. I performed a history and examination of this patient, discussed the same with the dictator. I agree with the dictator's note ,documented as a scribe. Any additional findings or plans will be noted.
[2024-11-23 19:09] VITALS: BP 134/72; PULSE 69; TEMP 97.9
--- NOTE | 2024-11-26 20:35 | P.DS ---
Providers Date of admission: 11/21/24 21:13 Attending physician: Dahiana Chan Consults: 11/21/24 21:13 Consult Physician Routine Consulting Provider: Gary Andrade Consult Reason/Comments: CKD Do you want consulting provider notified?: Yes 11/22/24 12:13 Consult Physician Routine Consulting Provider: Abril Razo Consult Reason/Comments: Left arm swelling, AV fistula may be a Do you want consulting provider notified?: Yes Primary care physician: Stated None Hospital Course: Final Diagnosis -Left arm pain severe: Concern for complex regional pain syndrome although patient does not have any bluish discoloration of the left arm. Patient has a graft in that arm, vascular surgery will be consulted. Because of severe tenderness unfortunately I cannot get any ultrasound x-ray will be obtained. Patient is allergic to hydromorphone will be started on fentanyl patch. Prefer not to use morphine because of her end-stage renal disease -Type 2 diabetes mellitus on insulin pump which will be resumed -Hypertension uncontrolled accelerated hypertension patient will be resumed on home medications patient blood pressures are usually high -Gastroesophageal flux disease -End-stage renal disease hemodialysis dependent 4 times a week. Patient does have mild pulm edema on the x-ray nephrology will evaluate the patient -Hyponatremia secondary to end-stage renal disease -Leukocytosis due to assessment #1 -Hypothyroidism -Seizure disorder -Depression Discharge Disposition Stable for discharge home. Leukocytosis better. Vascular has cleared. Patient underwent normal hemodialysis session prior to discharge. Needs to establish care with a PCP and information was provided. Hospital Course 34-year-old female with with a graft in the left arm for end-stage renal disease hemodialysis purposes came in with severe pain and swelling in the left arm there is no increased redness left arm is tender to touch 10 x 10 pain with localized of temperature. on 10/19/24 patient had recent left upper extremity loop AV graft creation. Patient was admitted with nephrology and vascular consultation. Initial white blood cell count 18 but has normalized. patient was recently evaluated in the vascular office had discussed gabapentin being increased. Due to the renal dysfunction recommending to change from gabapentin to lyrica patient OK with this and prescription provided. Patient has not been able to establish with a PCP due to her frequent re admissions. Vascular evaluated the left arm. Patient has no erythema or drainage and there is a palpable thrill and audible bruit. Patients arm pain has now improved. Patient will be discharged home. Please see medication reconciliation for a list of current medications. Thank you for allowing us to participate in the care of this patient. The impression and plan of care has been dictated by Yeni Blackburn, Nurse Practitioner as directed. Dr. Connie MD I have performed a history and physical examination and medical decision making of this patient, discussed the same with the dictator, and agree with the dictators assessment and plan as written, documented as a scribe. Based on total visit time, I have performed more than 50% of this visit. Patient Condition at Discharge: Fair Plan - Discharge Summary New Discharge Prescriptions: New HYDROcodone/APAP 10-325MG [[place] 10-325] 1 tab PO Q6H PRN #12 tab PRN Reason: Pain Pregabalin [Lyrica] 200 mg PO BID 15 Days #60 cap Continue Magnesium Hydroxide [Milk of Magnesia Concentrate] 7,200 mg PO DAILY PRN PRN Reason: Constipation Lidocaine 4% Patch 1 patch TOPICAL DAILY@0800 Ipratropium-Albuterol Nebulize [Duoneb 0.5 mg-3 mg/3 ml Soln] 3 ml INHALATION RT-TID PRN each PRN Reason: Shortness Of Breath Or Wheezing Biotene Dry Mouth/Throat 10 ml PO BID PRN PRN Reason: DRY MOUTH/THROAT Acetaminophen [Tylenol] 650 mg PO Q4H PRN PRN Reason: Pain Or Fever > 100.5 Darbepoetin Artur [Aranesp] 40 mcg SQ MO Loratadine [Claritin] 5 mg PO DAILY tab Sertraline [Zoloft] 200 mg PO DAILY@0800 ALPRAZolam [Xanax] 0.25 mg PO BID PRN PRN Reason: Anxiety Colchicine [Colcrys] 0.3 mg PO DAILY #15 each Insulin Aspart (For Pump) [NovoLOG (For Pump)] 0.01 unit SQ-PUMP CONTINUOUS Ondansetron Odt [Zofran ODT] 4 mg PO Q8HR PRN PRN Reason: Nausea And Vomiting Docusate [Colace] 100 mg PO DAILY@0800 polyethylene glycoL 3350 [Miralax] 17 gm PO AC-LUNCH #527 gm Melatonin 1 mg PO HS tab Butalb/APAP/Caff 50-325-40Mg [Fioricet 50-325-40] 1 tab PO Q4HR PRN PRN Reason: Headache Aspirin 81 mg PO DAILY@0800 #30 tab Famotidine [Pepcid] 20 mg PO BID #60 tab Divalproex ER [Depakote ER] 500 mg PO BID@0800,1700 Levothyroxine Sodium [Synthroid] 175 mcg PO DAILY@0600 Metoclopramide [Reglan] 5 mg PO AC-TID PRN PRN Reason: Nausea Pantoprazole [Protonix] 40 mg PO DAILY@0600 traZODone HCL [Desyrel] 50 mg PO HS Calcium Acetate [PhosLo] 2,001 mg PO TID-W/MEALS Calcium Acetate [PhosLo] 667 mg PO DAILY PRN PRN Reason: W/SNACK hydrALAZINE HCL [Apresoline] 100 mg PO TID #90 tab NIFEdipine XL [Procardia XL] 60 mg PO BID #60 tab Labetalol [Trandate] 500 mg PO BID #150 tab Triphrocaps 1mg Cap 1 cap PO DAILY Isosorbide Mononitrate ER [Imdur] 120 mg PO DAILY tab cloNIDine HCL [Catapres] 0.3 mg PO TID tab oxyCODONE-APAP 10-325MG [Percocet 10-325 mg] 1 tab PO Q4HR PRN #18 tab PRN Reason: Pain SCALE 6-10 Changed Atorvastatin [Lipitor] 40 mg PO HS #0 Discontinued Gabapentin [Neurontin] 600 mg PO TID Discharge Medication List Docusate [Colace] 100 mg PO DAILY@0800 02/05/24 [History] Lidocaine 4% Patch 1 patch TOPICAL DAILY@0800 02/05/24 [History] Magnesium Hydroxide [Milk of Magnesia Concentrate] 7,200 mg PO DAILY PRN 02/05/24 [History] Ipratropium-Albuterol Nebulize [Duoneb 0.5 mg-3 mg/3 ml Soln] 3 ml INHALATION RT-TID PRN each 02/14/24 [Rx] polyethylene glycoL 3350 [Miralax] 17 gm PO AC-LUNCH #527 gm 02/14/24 [Rx] Acetaminophen [Tylenol] 650 mg PO Q4H PRN 02/18/24 [History] Biotene Dry Mouth/Throat 10 ml PO BID PRN 02/18/24 [History] Melatonin 1 mg PO HS tab 02/25/24 [Rx] Butalb/APAP/Caff 50-325-40Mg [Fioricet 50-325-40] 1 tab PO Q4HR PRN 03/14/24 [History] Darbepoetin Artur [Aranesp] 40 mcg SQ MO 03/14/24 [History] Loratadine [Claritin] 5 mg PO DAILY tab 03/30/24 [Rx] Aspirin 81 mg PO DAILY@0800 #30 tab 05/18/24 [Rx] Famotidine [Pepcid] 20 mg PO BID #60 tab 07/11/24 [Rx] Divalproex ER [Depakote ER] 500 mg PO BID@0800,1700 08/14/24 [History] Levothyroxine Sodium [Synthroid] 175 mcg PO DAILY@0600 08/14/24 [History] Metoclopramide [Reglan] 5 mg PO AC-TID PRN 08/14/24 [History] Pantoprazole [Protonix] 40 mg PO DAILY@0608/14/24 [History] Sertraline [Zoloft] 200 mg PO DAILY@0800 08/14/24 [History] traZODone HCL [Desyrel] 50 mg PO HS 08/14/24 [History] ALPRAZolam [Xanax] 0.25 mg PO BID PRN 09/04/24 [History] Calcium Acetate [PhosLo] 2,001 mg PO TID-W/MEALS 09/04/24 [History] Calcium Acetate [PhosLo] 667 mg PO DAILY PRN 09/04/24 [History] Colchicine [Colcrys] 0.3 mg PO DAILY #15 each 09/23/24 [Rx] Labetalol [Trandate] 500 mg PO BID #150 tab 09/23/24 [Rx] NIFEdipine XL [Procardia XL] 60 mg PO BID #60 tab 09/23/24 [Rx] hydrALAZINE HCL [Apresoline] 100 mg PO TID #90 tab 09/23/24 [Rx] Triphrocaps 1mg Cap 1 cap PO DAILY 10/10/24 [History] Insulin Aspart (For Pump) [NovoLOG (For Pump)] 0.01 unit SQ-PUMP CONTINUOUS 11/02/24 [History] Ondansetron Odt [Zofran ODT] 4 mg PO Q8HR PRN 11/02/24 [History] Isosorbide Mononitrate ER [Imdur] 120 mg PO DAILY tab 11/17/24 [Rx] cloNIDine HCL [Catapres] 0.3 mg PO TID tab 11/17/24 [Rx] HYDROcodone/APAP 10-325MG [[place] 10-325] 1 tab PO Q6H PRN #12 tab 11/21/24 [Rx] Atorvastatin [Lipitor] 40 mg PO HS #0 11/23/24 [Rx] Pregabalin [Lyrica] 200 mg PO BID 15 Days #60 cap 11/23/24 [Rx] oxyCODONE-APAP 10-325MG [Percocet 10-325 mg] 1 tab PO Q4HR PRN #18 tab 11/23/24 [Rx] Follow up Appointment(s)/Referral(s): Charlene Lim MD [STAFF PHYSICIAN] - 1 Week Abril Razo DO [STAFF PHYSICIAN] - 1 Week [facility] [NON-STAFF] - 1 Week None,Stated [Primary Care Provider] - 1-2 days Patient Instructions/Handouts: Arm Pain (ED) Discharge/Stand Alone Forms: PH Area PCPs Discharge Disposition: HOME SELF-CARE
== END 2024-11-23 17:40 | disposition home or self-care (01) ==
LOC: EC 14:53 → 6NMEDSUR 21:13
PROVIDERS: ADMIT Hospitalist; ATTEND Hospitalist
DX: T82.848A Pain due to vascular prosthetic devices, implants and grafts, initial encounter (principal); Y84.8 Other medical procedures as the cause of abnormal reaction of the patient, or of later complication, without mention of misadventure at the time of the procedure; R22.32 Localized swelling, mass and lump, left upper limb; I16.0 Hypertensive urgency; I12.0 Hypertensive chronic kidney disease with stage 5 chronic kidney disease or end stage renal disease; N18.6 End stage renal disease; E11.22 Type 2 diabetes mellitus with diabetic chronic kidney disease; E11.43 Type 2 diabetes mellitus with diabetic autonomic (poly)neuropathy; K31.84 Gastroparesis; K21.9 Gastro-esophageal reflux disease without esophagitis; F32.A Depression, unspecified; F41.9 Anxiety disorder, unspecified; J81.1 Chronic pulmonary edema; E87.1 Hypo-osmolality and hyponatremia; D72.829 Elevated white blood cell count, unspecified; E03.9 Hypothyroidism, unspecified; G40.909 Epilepsy, unspecified, not intractable, without status epilepticus; N25.0 Renal osteodystrophy; F17.200 Nicotine dependence, unspecified, uncomplicated; Z86.73 Personal history of transient ischemic attack (TIA), and cerebral infarction without residual deficits; Z96.41 Presence of insulin pump (external) (internal); Z99.2 Dependence on renal dialysis; Z79.4 Long term (current) use of insulin; Z79.82 Long term (current) use of aspirin; Z79.890 Hormone replacement therapy; Z79.899 Other long term (current) drug therapy; Z88.5 Allergy status to narcotic agent; Z88.6 Allergy status to analgesic agent
CPT/HCPCS: 96372; 96376; 96374; 96375; 99291; 36415; 94760; 80053 ×2; 80048; 83735 ×2; 84100 ×2; 85025 ×2; 85027; 85610; 85730; 71046; G0257 ×2; G0378 ×3; J2270; J1644; J1920; 90935

== ENCOUNTER 2024-11-26 16:40 | Inpatient (IN) | payer MEDICARE ==
[2024-11-26 17:07] LABS: Glucose,Whole Blood >600 mg/dL (70-110)
--- NOTE | 2024-11-26 17:45 | ED ---
Recheck HPI - General Chief Complaint: Recheck/Abnormal Lab/Rx Stated Complaint: Hyperglycemia Time Seen by Provider: 11/26/24 16:54 Source: patient, EMS, RN notes reviewed Mode of arrival: EMS Limitations: no limitations - History of Present Illness Initial Comments: This is a 34-year-old female with history of ESRD and DM presenting via EMS for uncontrolled blood sugar x 3 days. Patient states she has been unable to control her blood sugar despite use of the insulin pump attached to her abdomen. Patient is otherwise difficult to arouse and unable to obtain a sufficient HPI from her. MD Complaint: abnormal lab Onset/Timin -: days(s) - Related Data Home Medications Medication Instructions Recorded Confirmed Docusate [Colace] 100 mg PO DAILY@0800 02/05/24 11/27/24 Lidocaine 4% Patch 1 patch TOPICAL DAILY@79902/05/24 11/27/24 Magnesium Hydroxide [Milk of 7,200 mg PO DAILY PRN 02/05/24 11/27/24 Magnesia Concentrate] Acetaminophen [Tylenol] 650 mg PO Q4H PRN 02/18/24 11/27/24 Biotene Dry Mouth/Throat 10 ml PO BID PRN 02/18/24 11/27/24 Butalb/APAP/Caff 50-325-40Mg 1 tab PO Q4HR PRN 03/14/24 11/27/24 [Fioricet 50-325-40] Darbepoetin Artur [Aranesp] 40 mcg SQ MO 03/14/24 11/27/24 Divalproex ER [Depakote ER] 500 mg PO BID@0800,1700 08/14/24 11/27/24 Levothyroxine Sodium [Synthroid] 175 mcg PO DAILY@59908/14/24 11/27/24 Metoclopramide [Reglan] 5 mg PO AC-TID PRN 08/14/24 11/27/24 Pantoprazole [Protonix] 40 mg PO DAILY@59908/14/24 11/27/24 Sertraline [Zoloft] 200 mg PO DAILY@0800 08/14/24 11/27/24 traZODone HCL [Desyrel] 50 mg PO HS 08/14/24 11/27/24 ALPRAZolam [Xanax] 0.25 mg PO BID PRN 09/04/24 11/27/24 Calcium Acetate [PhosLo] 2,001 mg PO TID-W/MEALS 09/04/24 11/27/24 Calcium Acetate [PhosLo] 667 mg PO DAILY PRN 09/04/24 11/27/24 Triphrocaps 1mg Cap 1 cap PO DAILY 10/10/24 11/27/24 Insulin Aspart (For Pump) [NovoLOG 0.01 unit SQ-PUMP CONTINUOUS 11/02/24 11/27/24 (For Pump)] Ondansetron Odt [Zofran ODT] 4 mg PO Q8HR PRN 11/02/24 11/27/24 Previous Rx's Medication Instructions Recorded Ipratropium-Albuterol Nebulize 3 ml INHALATION RT-TID PRN each 02/14/24 [Duoneb 0.5 mg-3 mg/3 ml Soln] polyethylene glycoL 3350 [Miralax] 17 gm PO AC-LUNCH #527 gm 02/14/24 Melatonin 1 mg PO HS tab 02/25/24 Loratadine [Claritin] 5 mg PO DAILY tab 03/30/24 Aspirin 81 mg PO DAILY@0800 #30 tab 05/18/24 Famotidine [Pepcid] 20 mg PO BID #60 tab 07/11/24 Colchicine [Colcrys] 0.3 mg PO DAILY #15 each 09/23/24 Labetalol [Trandate] 500 mg PO BID #150 tab 09/23/24 NIFEdipine XL [Procardia XL] 60 mg PO BID #60 tab 09/23/24 hydrALAZINE HCL [Apresoline] 100 mg PO TID #90 tab 09/23/24 Isosorbide Mononitrate ER [Imdur] 120 mg PO DAILY tab 11/17/24 cloNIDine HCL [Catapres] 0.3 mg PO TID tab 11/17/24 Atorvastatin [Lipitor] 40 mg PO HS #0 11/23/24 Pregabalin [Lyrica] 200 mg PO BID 15 Days #60 cap 11/23/24 oxyCODONE-APAP 10-325MG [Percocet 1 tab PO Q4HR PRN #18 tab 11/23/24 10-325 mg] Allergies Allergy/AdvReac Type Severity Reaction Status Date / Time hydromorphone HCl Allergy Anaphylaxis Verified 11/27/24 09:33 [From Dilaudid] propoxyphene Allergy Rash/Hives Verified 11/27/24 09:33 [From Darvocet-N] tramadol Allergy Anaphylaxis Verified 11/27/24 09:33 ibuprofen [From Motrin] AdvReac unable to Verified 11/27/24 09:33 take due to kidney disease venom-honey bee AdvReac passes out Verified 11/27/24 09:33 [bee venom (honey bee)] Review of Systems ROS Statement: Those systems with pertinent positive or pertinent negative responses have been documented in the HPI. ROS Other: All systems not noted in ROS Statement are negative. Past Medical History Past Medical History: Diabetes Mellitus, GERD/Reflux, Hypertension, Renal Disease, Seizure Disorder, Thyroid Disorder Additional Past Medical History / Comment(s): Neuropathy, last seizure 2020, gastroparesis, headaches with dialysis, states "fast heart rate" since giving ., receives Hemodialysis Wednesday- and Saturdays at 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 Past Anesthesia/Blood Transfusion Reactions: Previous Problems w/ Anesthesia Additional Past Anesthesia/Blood Transfusion Reaction / Comment(s): confusion Past Psychological History: Anxiety, Depression Smoking Status: Current every day smoker Past Alcohol Use History: None Reported Past Drug Use History: Marijuana - Past Family History Father History Unknown: Yes Family Medical History: Unable to Obtain Mother History Unknown: Yes Family Medical History: No Reported History Grandfather History Unknown: Yes Family Medical History: Coronary Artery Disease (CAD) Additional Family Medical History / Comment(s): Diabetes mellitus type 2 General Exam Limitations: no limitations General appearance: lethargic (Patient difficult to arouse, alert to verbal) Head exam: Present: atraumatic, normocephalic, normal inspection Eye exam: Present: normal appearance, PERRL, EOMI. Absent: scleral icterus, conjunctival injection, periorbital swelling ENT exam: Present: normal exam, mucous membranes moist Neck exam: Present: normal inspection. Absent: tenderness, meningismus, lymphadenopathy Respiratory exam: Present: normal lung sounds bilaterally. Absent: respiratory distress, wheezes, rales, rhonchi, stridor Cardiovascular Exam: Present: regular rate, normal rhythm, normal heart sounds. Absent: systolic murmur, diastolic murmur, rubs, gallop, clicks GI/Abdominal exam: Present: soft, tenderness (Diffuse abdominal tenderness with voluntary guarding), normal bowel sounds. Absent: distended, guarding, rebound, rigid Extremities exam: Present: normal capillary refill. Absent: tenderness, pedal edema, joint swelling, calf tenderness Back exam: Present: normal inspection Neurological exam: Present: altered (Patient alert to verbal, withdraws from pain), CN II-XII intact Psychiatric exam: Present: normal mood, flat affect Skin exam: Present: warm, dry, intact, normal color. Absent: rash Course Vital Signs 11/26/24 11/26/24 11/26/24 16:43 17:02 20:38 Temperature 98.6 F Pulse Rate 85 82 Pulse Rate [ Facepiece Line Supervisor ] Respiratory 16 16 Rate Blood Pressure 172/99 160/102 Blood Pressure [Right Arm] O2 Sat by Pulse 86 L 95 97 Oximetry 11/26/24 11/26/24 11/27/24 21:38 23:14 06:01 Temperature Pulse Rate 81 80 72 Pulse Rate [ Facepiece Line Supervisor ] Respiratory 16 18 20 Rate Blood Pressure 143/86 136/89 128/79 Blood Pressure [Right Arm] O2 Sat by Pulse 95 98 99 Oximetry 11/27/24 11/27/24 11/27/24 08:08 09:05 12:00 Temperature Pulse Rate 83 67 68 Pulse Rate [ Facepiece Line Supervisor ] Respiratory 18 18 16 Rate Blood Pressure 110/72 97/65 100/58 Blood Pressure [Right Arm] O2 Sat by Pulse 97 98 98 Oximetry 11/27/24 11/27/24 11/27/24 15:38 19:34 20:25 Temperature 97.8 F 98.3 F Pulse Rate 68 Pulse Rate [ 74 78 Facepiece Line Supervisor ] Respiratory 16 16 18 Rate Blood Pressure 131/98 Blood Pressure 167/91 143/80 [Right Arm] O2 Sat by Pulse 96 99 Oximetry Medical Decision Making - Medical Decision Making Was pt. sent in by a medical professional or institution ([facility], [facility], urgent care, hospital, or correction...) When possible be specific @ -No Did you speak to anyone other than the patient for history (EMS, parent, family, police, friend...)? What history was obtained from this source @ -No Did you review nursing and triage notes (agree or disagree)? Why? @ -I reviewed and agree with nursing and triage notes Were old charts reviewed (outside hosp., previous admission, EMS record, old EKG, old radiological studies, urgent care reports/EKG's, correction records)? Report findings @ -No old charts were reviewed Differential Diagnosis (chest pain, altered mental status, abdominal pain women, abdominal pain men, vaginal bleeding, weakness, fever, dyspnea, syncope, headache, dizziness, GI bleed, back pain, seizure, CVA, palpatations, mental health, musculoskeletal)? @ -Differential Altered Mental Status: Hypoglycemia, DKA, hypercapnia, ETOH, overdose, CO poisoning, trauma, myxedema coma, HTN encephalopathy, infection, encephalitis, psychosis, intercranial hemorrhage, hepatic encephalopathy, meningitis, CVA, this is not meant to be an all-inclusive list EKG interpreted by me (3pts min.). @ -Sinus rhythm without ST changes or T wave inversion. Ventricular rate 81 bpm, HUNTER 143 ms, QRS duration 97 ms, QTc 430 ms. X-rays interpreted by me (1pt min.). @ - CXR indicates prominent pulmonary vasculature indicating CHF. CT interpreted by me (1pt min.). @ -None done U/S interpreted by me (1pt. min.). @ -None done What testing was considered but not performed or refused? (CT, X-rays, U/S, labs)? Why? @ -None What meds were considered but not given or refused? Why? @ -None Did you discuss the management of the patient with other professionals (professionals i.e. [facility], [facility], lab, RT, psych nurse, manager social media, supply chain development manager, teacher, articulation officer, case sealer)? Give summary @ -Spoke to Briseyda Olmos from [facility] who agreed to patient admission. Was smoking cessation discussed for >3mins.? @ -No Was critical care preformed (if so, how long)? @ -Yes, 35 minutes Were there social determinants of health that impacted care today? How? (Homelessness, low income, unemployed, alcoholism, drug addiction, transportation, low edu. Level, literacy, decrease access to med. care, correction, rehab)? @ -No Was there de-escalation of care discussed even if they declined (Discuss DNR or withdrawal of care, Hospice)? DNR status @ -No What co-morbidities impacted this encounter? (DM, HTN, Smoking, COPD, CAD, Canc er, CVA, ARF, Chemo, Hep., AIDS, mental health diagnosis, sleep apnea, morbid obesity)? @ -ESRD, DM Was patient admitted / discharged? Hospital course, mention meds given and route, prescriptions, significant lab abnormalities, going to OR and other pertinent info. @ -Lab work shows anemia (10.5). POC glucose 450, phosphorus 7.1. Hyponatremia (127) hyperchloremia NC 87) and ELOINA with BUN 63 and creatinine 7.5. Positive anion gap of 21. Acetone positive. CXR indicates prominent pulmonary vasculature indicating CHF. Patient initially provided 24 units NovoLog insulin and sodium chloride bolus. Patient placed on insulin drip. Briseyda Olmso from [facility] notified of patient admission. Discussed patient with Dr. Zepeda. Undiagnosed new problem with uncertain prognosis? @ -DKA, ELOINA Drug Therapy requiring intensive monitoring for toxicity (Heparin, Nitro, Insulin, Cardizem)? @ -Insulin Were any procedures done? @ -No Diagnosis/symptom? @ -DKA, CKD/ELOINA, hyperkalemia, heart failure with pulmonary edema Acute, or Chronic, or Acute on Chronic? @ -Acute Uncomplicated (without systemic symptoms) or Complicated (systemic symptoms)? @ -Complicated Side effects of treatment? @ -No Exacerbation, Progression, or Severe Exacerbation? @ -Severe exacerbation Poses a threat to life or bodily function? How? (Chest pain, [place], [place], pneumonia, PE, COPD, DKA, ARF, appy, cholecystitis, CVA, Diverticulitis, Homicidal, Suicidal, threat to staff... and all critical care pts) @ -DKA, ELOINA, hyperkalemia, heart failure - Lab Data Result diagrams: 11/30/24 07:19 11/30/24 07:16 Lab Results 11/26/24 11/26/24 11/26/24 Range/Units 17:06 17:47 17:47 WBC 9.9 (3.8-10.6) k/uL RBC 3.29 L (3.80-5.40) m/uL Hgb 10.5 L (11.4-16.0) gm/dL Hct 33.5 L (34.0-46.0) % MCV 101.9 H (80.0-100.0) fL MCH 31.9 (25.0-35.0) pg MCHC 31.4 (31.0-37.0) g/dL RDW 17.0 H (11.5-15.5) % Plt Count 309 (150-450) k/uL MPV 7.5 Neutrophils % 84 % Lymphocytes % 7 % Monocytes % 5 % Eosinophils % 2 % Basophils % 1 % Neutrophils # 8.4 H (1.3-7.7) k/uL Lymphocytes # 0.7 L (1.0-4.8) k/uL Monocytes # 0.5 (0-1.0) k/uL Eosinophils # 0.2 (0-0.7) k/uL Basophils # 0.1 (0-0.2) k/uL Hypochromasia Moderate Anisocytosis Slight Macrocytosis Moderate Sodium 122 L (137-145) mmol/L Potassium 6.2 H* (3.5-5.1) mmol/L Chloride 79 L (98-107) mmol/L Carbon Dioxide 25 (22-30) mmol/L Anion Gap 18 mmol/L BUN 67 H (7-17) mg/dL Creatinine 7.57 H* (0.52-1.04) mg/dL Est GFR (CKD-EPI)AfAm 7 (>60 ml/min/1.73 sqM) Est GFR (CKD-EPI)NonAf 6 (>60 ml/min/1.73 sqM) Glucose 684 H* (74-99) mg/dL POC Glucose (mg/dL) >600 H* (70-110) mg/dL POC Glu Ortho Nurse ID Taras Pavithra Plasma Lactic Acid Christopher (0.7-2.0) mmol/L Calcium 8.9 (8.4-10.2) mg/dL Phosphorus (2.5-4.5) mg/dL Magnesium (1.6-2.3) mg/dL Total Bilirubin 0.9 (0.2-1.3) mg/dL AST 38 H (14-36) U/L ALT 45 H (4-34) U/L Alkaline Phosphatase 213 H (38-126) U/L Troponin I (0.000-0.034) ng/mL NT-Pro-B Natriuret Pep pg/mL Total Protein 7.2 (6.3-8.2) g/dL Albumin 4.8 (3.5-5.0) g/dL Amylase 45 (30-110) U/L Lipase 170 (23-300) U/L Acetone, Qual Positive (Negative) 11/26/24 11/26/24 11/26/24 Range/Units 17:47 18:31 18:31 WBC (3.8-10.6) k/uL RBC (3.80-5.40) m/uL Hgb (11.4-16.0) gm/dL Hct (34.0-46.0) % MCV (80.0-100.0) fL MCH (25.0-35.0) pg MCHC (31.0-37.0) g/dL RDW (11.5-15.5) % Plt Count (150-450) k/uL MPV Neutrophils % % Lymphocytes % % Monocytes % % Eosinophils % % Basophils % % Neutrophils # (1.3-7.7) k/uL Lymphocytes # (1.0-4.8) k/uL Monocytes # (0-1.0) k/uL Eosinophils # (0-0.7) k/uL Basophils # (0-0.2) k/uL Hypochromasia Anisocytosis Macrocytosis Sodium (137-145) mmol/L Potassium (3.5-5.1) mmol/L Chloride (98-107) mmol/L Carbon Dioxide (22-30) mmol/L Anion Gap mmol/L BUN (7-17) mg/dL Creatinine (0.52-1.04) mg/dL Est GFR (CKD-EPI)AfAm (>60 ml/min/1.73 sqM) Est GFR (CKD-EPI)NonAf (>60 ml/min/1.73 sqM) Glucose (74-99) mg/dL POC Glucose (mg/dL) (70-110) mg/dL POC Glu Ortho Nurse ID Plasma Lactic Acid Christopher 1.4 (0.7-2.0) mmol/L Calcium (8.4-10.2) mg/dL Phosphorus (2.5-4.5) mg/dL Magnesium (1.6-2.3) mg/dL Total Bilirubin (0.2-1.3) mg/dL AST (14-36) U/L ALT (4-34) U/L Alkaline Phosphatase (38-126) U/L Troponin I 0.043 H* (0.000-0.034) ng/mL NT-Pro-B Natriuret Pep 81790 pg/mL Total Protein (6.3-8.2) g/dL Albumin (3.5-5.0) g/dL Amylase (30-110) U/L Lipase (23-300) U/L Acetone, Qual (Negative) 11/26/24 Range/Units 18:31 WBC (3.8-10.6) k/uL RBC (3.80-5.40) m/uL Hgb (11.4-16.0) gm/dL Hct (34.0-46.0) % MCV (80.0-100.0) fL MCH (25.0-35.0) pg MCHC (31.0-37.0) g/dL RDW (11.5-15.5) % Plt Count (150-450) k/uL MPV Neutrophils % % Lymphocytes % % Monocytes % % Eosinophils % % Basophils % % Neutrophils # (1.3-7.7) k/uL Lymphocytes # (1.0-4.8) k/uL Monocytes # (0-1.0) k/uL Eosinophils # (0-0.7) k/uL Basophils # (0-0.2) k/uL Hypochromasia Anisocytosis Macrocytosis Sodium (137-145) mmol/L Potassium (3.5-5.1) mmol/L Chloride (98-107) mmol/L Carbon Dioxide (22-30) mmol/L Anion Gap mmol/L BUN (7-17) mg/dL Creatinine (0.52-1.04) mg/dL Est GFR (CKD-EPI)AfAm (>60 ml/min/1.73 sqM) Est GFR (CKD-EPI)NonAf (>60 ml/min/1.73 sqM) Glucose (74-99) mg/dL POC Glucose (mg/dL) (70-110) mg/dL POC Glu Ortho Nurse ID Plasma Lactic Acid Christopher (0.7-2.0) mmol/L Calcium (8.4-10.2) mg/dL Phosphorus 7.8 H (2.5-4.5) mg/dL Magnesium 2.0 (1.6-2.3) mg/dL Total Bilirubin (0.2-1.3) mg/dL AST (14-36) U/L ALT (4-34) U/L Alkaline Phosphatase (38-126) U/L Troponin I (0.000-0.034) ng/mL NT-Pro-B Natriuret Pep pg/mL Total Protein (6.3-8.2) g/dL Albumin (3.5-5.0) g/dL Amylase (30-110) U/L Lipase (23-300) U/L Acetone, Qual (Negative) Disposition Clinical Impression: DKA (diabetic ketoacidosis), ELOINA (acute kidney injury), Altered level of consciousness Disposition: ADMITTED IP TO THIS HOSP Condition: Fair Is patient prescribed a controlled substance at d/c from ED?: No Time of Disposition: 19:48 Decision Date: 11/26/24 Decision Time: 19:48
[2024-11-26] MEDS: INSULIN ASPART (NovoLOG) 100 UNIT/ML VIAL SQ ONE (17:51)
[2024-11-26] MEDS: SODIUM CHLORIDE 0.9% 1,000 ML IV STA ×2 (17:53→18:31)
[2024-11-26 18:10] LABS: Anisocytosis Slight; Basophils # (A) 0.1 k/uL (0-0.2); Basophils % (A) 1 %; Eosinophils # (A) 0.2 k/uL (0-0.7); Eosinophils % (A) 2 %; HCT 33.5 % (34.0-46.0); HGB 10.5 gm/dL (11.4-16.0); Hypochromasia Moderate; Lymphocytes # (A) 0.7 k/uL (1.0-4.8); Lymphocytes % (A) 7 %; MCH 31.9 pg (25.0-35.0); MCHC 31.4 g/dL (31.0-37.0); MCV 101.9 fL (80.0-100.0); Macrocytosis Moderate; Mean Platelet Volume 7.5; Monocytes # (A) 0.5 k/uL (0-1.0); Monocytes % (A) 5 %; Neutrophils # (A) 8.4 k/uL (1.3-7.7); Neutrophils % (A) 84 %; Platelet Count 309 k/uL (150-450); RBC 3.29 m/uL (3.80-5.40); WBC 9.9 k/uL (3.8-10.6)
[2024-11-26 18:13] LABS: ALT 45 U/L (4-34); AST 38 U/L (14-36); African American GFR (CKD) 7 (>60 ml/min/1.73 sqM); Albumin 4.8 g/dL (3.5-5.0); Alkaline Phosphatase 213 U/L (38-126); Amylase 45 U/L (30-110); Anion Gap 18 mmol/L; Blood Urea Nitrogen 67 mg/dL (7-17); Calcium 8.9 mg/dL (8.4-10.2); Carbon Dioxide 25 mmol/L (22-30); Chloride 79 mmol/L (98-107); Lipase 170 U/L (23-300); Non-African American GFR(CKD) 6 (>60 ml/min/1.73 sqM); Sodium 122 mmol/L (137-145); Total Bilirubin 0.9 mg/dL (0.2-1.3); Total Protein 7.2 g/dL (6.3-8.2)
[2024-11-26 18:23] LABS: Glucose 684 mg/dL (74-99)
[2024-11-26 18:24] LABS: Potassium 6.2 mmol/L (3.5-5.1)
--- NOTE | 2024-11-26 18:43 | XR ---
EXAMINATION TYPE: XR chest 2V DATE OF EXAM: 11/26/2024 6:37 PM COMPARISON: 11/21/2024 CLINICAL INDICATION: Female, 34 years old with history of AMS, TECHNIQUE: XR chest 2V view(s) obtained. FINDINGS: The heart size is enlarged. The pulmonary vasculature is prominent. Diffuse increased lung markings are present. Catheter is present on the right with the tips in the r ight atrium IMPRESSION: 1. Clinical correlation for congestive heart failure recommended [facility], , 11/26/2024 6:40 PM
[2024-11-26] MEDS ORDERED: HYDROcodone/APAP 10-325MG 1 EACH TAB PO PRN (19:45)
[2024-11-26] MEDS ORDERED: METOCLOPRAMIDE 5 MG TAB PO PRN (19:45)
[2024-11-26 20:04] LABS: Glucose,Whole Blood 450 mg/dL (70-110)
[2024-11-26 20:06] LABS: Phosphorus 7.8 mg/dL (2.5-4.5)
[2024-11-26] MEDS: INSULIN REGULAR 100 UNIT in SODIUM CHLORIDE 0.9% 100 ML IV SCH (20:07)
[2024-11-26] MEDS: SODIUM CHLORIDE 0.9% 1,000 ML IV SCH (20:11)
[2024-11-26] MEDS: LABETALOL 200 MG TAB PO SCH (20:39)
[2024-11-26] MEDS: hydrALAZINE HCL 50 MG TAB PO SCH (20:39)
[2024-11-26] MEDS: traZODone HCL 50 MG TAB PO SCH (20:40)
[2024-11-26] MEDS: PREGABALIN 100 MG CAP PO SCH (20:41)
[2024-11-26 20:56] LABS: African American GFR (CKD) 7 (>60 ml/min/1.73 sqM); Anion Gap 21 mmol/L; Blood Urea Nitrogen 63 mg/dL (7-17); Carbon Dioxide 19 mmol/L (22-30); Chloride 87 mmol/L (98-107); Glucose 372 mg/dL (74-99); Non-African American GFR(CKD) 6 (>60 ml/min/1.73 sqM); Potassium 4.8 mmol/L (3.5-5.1); Sodium 127 mmol/L (137-145)
[2024-11-26 21:06] LABS: Glucose,Whole Blood 316 mg/dL (70-110)
[2024-11-26] MEDS: oxyCODONE-APAP 10-325MG 1 EACH TAB PO PRN (21:07)
[2024-11-26 22:03] LABS: Glucose,Whole Blood 256 mg/dL (70-110)
[2024-11-26] MEDS: D5-0.45% NACL WITH KCL 20MEQ/L 1,000 ML IV SCH (22:44)
[2024-11-26 23:13] LABS: Glucose,Whole Blood 155 mg/dL (70-110)
[2024-11-27 00:11] LABS: Glucose,Whole Blood 103 mg/dL (70-110)
[2024-11-27 01:24] LABS: Glucose,Whole Blood 57 mg/dL (70-110)
[2024-11-27] MEDS: DEXTROSE 50% SYRINGE 50 ML IVP PRN (01:28)
[2024-11-27 01:49] LABS: Glucose,Whole Blood 122 mg/dL (70-110)
[2024-11-27 04:00] LABS: Glucose,Whole Blood 124 mg/dL (70-110)
[2024-11-27 04:26] LABS: African American GFR (CKD) 7 (>60 ml/min/1.73 sqM); Anion Gap 14 mmol/L; Blood Urea Nitrogen 63 mg/dL (7-17); Calcium 8.5 mg/dL (8.4-10.2); Carbon Dioxide 26 mmol/L (22-30); Chloride 89 mmol/L (98-107); Glucose 111 mg/dL (74-99); Non-African American GFR(CKD) 6 (>60 ml/min/1.73 sqM); Phosphorus 6.9 mg/dL (2.5-4.5); Sodium 129 mmol/L (137-145)
[2024-11-27] MEDS: INSULIN REGULAR 100 UNIT in SODIUM CHLORIDE 0.9% 100 ML IV SCH (05:01)
[2024-11-27 05:05] LABS: Glucose,Whole Blood 128 mg/dL (70-110)
[2024-11-27] MEDS: SODIUM CHLORIDE 0.9% 1,000 ML IV ONE (06:03)
[2024-11-27] MEDS: SODIUM CHLORIDE 0.9% 1,000 ML IV SCH (06:03)
[2024-11-27 06:11] LABS: Glucose,Whole Blood 126 mg/dL (70-110)
[2024-11-27] MEDS: LEVOTHYROXINE 88 MCG TAB PO SCH (06:42)
[2024-11-27] MEDS: INSULIN ASPART (NovoLOG) 100 UNIT/ML VIAL SQ SCH (07:11)
[2024-11-27 07:14] LABS: Glucose,Whole Blood 104 mg/dL (70-110)
[2024-11-27 08:10] LABS: Glucose,Whole Blood 91 mg/dL (70-110)
[2024-11-27] MEDS: SERTRALINE 100 MG TAB PO SCH (08:10)
[2024-11-27 08:41] LABS: Glucose,Whole Blood 83 mg/dL (70-110)
[2024-11-27 09:12] LABS: Glucose,Whole Blood 95 mg/dL (70-110)
--- NOTE | 2024-11-27 09:17 | US ---
EXAMINATION TYPE: US duplex graft UE LT DATE OF EXAM: 11/27/2024 COMPARISON: NONE CLINICAL INDICATION: Female, 34 years old with history of graft occlusion; graft left forearm. check patency TECHNIQUE: Grayscale, color Doppler and spectral Doppler imaging of the upper extremity. SIDE PERFORMED: left FINDINGS: Dialysis graft left forearm appears patent X-Ray Jeovanny Pickard, , 11/27/2024 9:15 AM CARTER
--- NOTE | 2024-11-27 10:07 | P.NPCON ---
History of Present Illness - Reason for Consult end stage renal disease - History of Present Illness Reason for consultation: End-stage renal disease History of present illness: Patient is a 34-year-old female seen in renal consultation for end-stage renal disease. Patient was seen and examined in the emergency room. Patient is maintained on hemodialysis on Wednesday schedule via permacath. She has a maturing AV graft in the left forearm. Patient states she did not miss any dialysis treatments and her last treatment was on Wednesday. Patient states yesterday her sugars got really high to the point where the meter could not treat her blood glucose. Patient states blood sugars have been running on the higher side over the last 2 to 3 days. Therefore she came to the hospital. She did have vomiting. Denies fever or chills. Denies chest pain or shortness of breath. Blood glucose was 684 on admission and she is currently maintained on insulin drip. She also received 2 L of normal saline and is currently receiving half- normal saline at 250 cc an hour. Vital signs are stable. General: No acute distress. HEENT: Head exam is unremarkable. LUNGS: No audible rhonchi or wheezes. HEART: Rate and Rhythm are regular. ABDOMEN: Nontender. EXTREMITITES: Trace edema. 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 Past Anesthesia/Blood Transfusion Reactions: Previous Problems w/ Anesthesia Additional Past Anesthesia/Blood Transfusion Reaction / Comment(s): confusion Past Psychological History: Anxiety, Depression Smoking Status: Current every day smoker Past Alcohol Use History: None Reported Past Drug Use History: Marijuana - Past Family History Father History Unknown: Yes Family Medical History: Unable to Obtain Mother History Unknown: Yes Family Medical History: No Reported History Grandfather History Unknown: Yes Family Medical History: Coronary Artery Disease (CAD) Additional Family Medical History / Comment(s): Diabetes mellitus type 2 Medications and Allergies Home Medications Medication Instructions Recorded Confirmed Type Docusate [Colace] 100 mg PO DAILY@0800 02/05/24 11/27/24 History Lidocaine 4% Patch 1 patch TOPICAL DAILY@0800 02/05/24 11/27/24 History Magnesium Hydroxide [Milk of 7,200 mg PO DAILY PRN 02/05/24 11/27/24 History Magnesia Concentrate] Ipratropium-Albuterol Nebulize 3 ml INHALATION RT-TID PRN each 02/14/24 11/27/24 Rx [Duoneb 0.5 mg-3 mg/3 ml Soln] polyethylene glycoL 3350 [Miralax] 17 gm PO AC-LUNCH #527 gm 02/14/24 11/27/24 Rx Acetaminophen [Tylenol] 650 mg PO Q4H PRN 02/18/24 11/27/24 History Biotene Dry Mouth/Throat 10 ml PO BID PRN 02/18/24 11/27/24 History Melatonin 1 mg PO HS tab 02/25/24 11/27/24 Rx Butalb/APAP/Caff 50-325-40Mg 1 tab PO Q4HR PRN 03/14/24 11/27/24 History [Fioricet 50-325-40] Darbepoetin Artur [Aranesp] 40 mcg SQ MO 03/14/24 11/27/24 History Loratadine [Claritin] 5 mg PO DAILY tab 03/30/24 11/27/24 Rx Aspirin 81 mg PO DAILY@0800 #30 tab 05/18/24 11/27/24 Rx Famotidine [Pepcid] 20 mg PO BID #60 tab 07/11/24 11/27/24 Rx Divalproex ER [Depakote ER] 500 mg PO BID@0800,1700 08/14/24 11/27/24 History Levothyroxine Sodium [Synthroid] 175 mcg PO DAILY@0600 30/24 01/13/25 History Metoclopramide [Reglan] 5 mg PO AC-TID PRN 08/14/24 11/27/24 History Pantoprazole [Protonix] 40 mg PO DAILY@59908/14/24 11/27/24 History Sertraline [Zoloft] 200 mg PO DAILY@79908/14/24 11/27/24 History traZODone HCL [Desyrel] 50 mg PO HS 08/14/24 11/27/24 History ALPRAZolam [Xanax] 0.25 mg PO BID PRN 09/04/24 11/27/24 History Calcium Acetate [PhosLo] 2,001 mg PO TID-W/MEALS 09/04/24 11/27/24 History Calcium Acetate [PhosLo] 667 mg PO DAILY PRN 09/04/24 11/27/24 History Colchicine [Colcrys] 0.3 mg PO DAILY #15 each 09/23/24 11/27/24 Rx Labetalol [Trandate] 500 mg PO BID #150 tab 09/23/24 11/27/24 Rx NIFEdipine XL [Procardia XL] 60 mg PO BID #60 tab 09/23/24 11/27/24 Rx hydrALAZINE HCL [Apresoline] 100 mg PO TID #90 tab 09/23/24 11/27/24 Rx Triphrocaps 1mg Cap 1 cap PO DAILY 10/10/24 11/27/24 History Insulin Aspart (For Pump) [NovoLOG 0.01 unit SQ-PUMP CONTINUOUS 11/02/24 11/27/24 History (For Pump)] Ondansetron Odt [Zofran ODT] 4 mg PO Q8HR PRN 11/02/24 11/27/24 History Isosorbide Mononitrate ER [Imdur] 120 mg PO DAILY tab 11/17/24 11/27/24 Rx cloNIDine HCL [Catapres] 0.3 mg PO TID tab 11/17/24 11/27/24 Rx Atorvastatin [Lipitor] 40 mg PO HS #0 11/23/24 11/27/24 Rx Pregabalin [Lyrica] 200 mg PO BID 15 Days #60 cap 11/23/24 11/27/24 Rx oxyCODONE-APAP 10-325MG [Percocet 1 tab PO Q4HR PRN #18 tab 11/23/24 11/27/24 Rx 10-325 mg] Allergies Allergy/AdvReac Type Severity Reaction Status Date / Time hydromorphone HCl Allergy Anaphylaxis Verified 11/27/24 09:33 [From Dilaudid] propoxyphene Allergy Rash/Hives Verified 11/27/24 09:33 [From Darvocet-N] tramadol Allergy Anaphylaxis Verified 11/27/24 09:33 ibuprofen [From Motrin] AdvReac unable to Verified 11/27/24 09:33 take due to kidney disease venom-honey bee AdvReac passes out Verified 11/27/24 09:33 [bee venom (honey bee)] Physical Exam Vitals: Vital Signs Temp Pulse Resp BP Pulse Ox 11/27/24 09:05 67 18 97/65 98 11/27/24 08:08 83 18 110/72 97 11/27/24 06:01 72 20 128/79 99 11/26/24 23:14 80 18 136/89 98 11/26/24 21:38 81 16 143/86 95 11/26/24 20:38 82 16 160/102 97 11/26/24 17:02 95 11/26/24 16:43 98.6 F 85 16 172/99 86 L Intake and Output 11/26/24 11/27/24 11/27/24 22:59 06:59 14:59 Intake Total 12.774 26.791 4.673 Balance 12.774 26.791 4.673 Intake: Intake, IV Titration 12.774 26.791 4.673 Amount Insulin Regular 100 unit 12.774 19.521 In Sodium Chloride 0.9% 100 ml @ 0.1 UNITS/KG/HR 6.231 mls/hr IV .[id number] [facility] Rx#:[id number] Insulin Regular 100 unit 7.27 4.673 In Sodium Chloride 0.9% 100 ml @ 0.1 UNITS/KG/HR 6.231 mls/hr IV .[id number] [facility] Rx#:[id number] Other: Weight 61.689 kg Results - Lab Results Most recent lab results Calcium 8.5 mg/dL (8.4-10.2) 11/27/24 03:59 Phosphorus 6.9 mg/dL (2.5-4.5) H 11/27/24 03:59 Magnesium 2.1 mg/dL (1.6-2.3) 11/27/24 03:59 11/26/24 17:47 11/27/24 03:59 Assessment and Plan Plan: Assessment: 1. End-stage renal disease maintained on hemodialysis on Wednesday schedule. Currently using permacath. She has a maturing left forearm AV graft. 2. DKA maintained on insulin drip and IV fluids. 3. Hypervolemic hyponatremia. 4. Hypertension with chronic kidney disease. 5. Chronic kidney disease mineral bone disease. Plan: Hemodialysis today. Decrease rate of IV fluids. Thank you for the consultation. I will continue to follow the patient with you during her hospital stay.
[2024-11-27 10:08] LABS: African American GFR (CKD) 7 (>60 ml/min/1.73 sqM); Anion Gap 13 mmol/L; Blood Urea Nitrogen 64 mg/dL (7-17); Carbon Dioxide 23 mmol/L (22-30); Chloride 91 mmol/L (98-107); Glucose 124 mg/dL (74-99); Non-African American GFR(CKD) 6 (>60 ml/min/1.73 sqM); Phosphorus 6.4 mg/dL (2.5-4.5); Potassium 5.8 mmol/L (3.5-5.1); Sodium 127 mmol/L (137-145)
[2024-11-27 10:14] LABS: Glucose,Whole Blood 132 mg/dL (70-110)
[2024-11-27 11:08] LABS: Glucose,Whole Blood 179 mg/dL (70-110)
[2024-11-27 12:13] LABS: Glucose,Whole Blood 233 mg/dL (70-110)
[2024-11-27] MEDS: ALPRAZolam 0.25 MG TAB PO PRN (12:16)
[2024-11-27 13:43] LABS: African American GFR (CKD) 7 (>60 ml/min/1.73 sqM); Anion Gap 19 mmol/L; Blood Urea Nitrogen 65 mg/dL (7-17); Carbon Dioxide 20 mmol/L (22-30); Chloride 89 mmol/L (98-107); Glucose 212 mg/dL (74-99); Non-African American GFR(CKD) 6 (>60 ml/min/1.73 sqM); Phosphorus 6.7 mg/dL (2.5-4.5); Potassium 5.4 mmol/L (3.5-5.1); Sodium 128 mmol/L (137-145)
--- NOTE | 2024-11-27 16:30 | P.CNPUL ---
History of Present Illness Consult date: 11/27/24 Requesting physician: Dahiana Chan Reason for consult: other (Critical care management) Chief complaint: DKA History of present illness: This is a 34-year-old female patient with a known history of diabetes mellitus with frequent admissions for DKA, gastroparesis, neuropathy, hypertension, end-s tage renal disease receiving hemodialysis on Wednesday schedule, anxiety/depression, chronic and ongoing tobacco dependence, history of marijuana use methamphetamines. She came into the emergency room yesterday with uncontrolled blood sugars at home. She does wear an insulin pump attached to her abdomen that had been working according to her. Chest x-ray reveals evidence of mild fluid volume overload. Count 9.9. Hemoglobin 10.5. Platelets 309. Sodium 128. Potassium 5.4. Bicarb 20. BUN 65. Creatinine 8.37. Current glucose 212. She is seen today in consultation in the emergency department. She is currently sitting up on a stretcher. Awake and alert in no acute distress. Maintaining good O2 saturations in the 90s on room air. She is on her insulin pump. NovoLog sliding scale. She is having some complaints of pain over her left upper extremity graft site. Review of Systems REVIEW OF SYSTEMS: CONSTITUTIONAL: Denies any recent significant weight loss or weight gain. EYES: Denies change in vision. EARS, NOSE, MOUTH, THROAT: Denies headaches, denies sore throat. CARDIOVASCULAR: Denies chest pain, palpitations or syncopal episodes. RESPIRATORY: Denies shortness of breath, cough, congestion or hemoptysis. GASTROINTESTINAL: Denies change in appetite, denies abdominal pain GENITOURINARY: Denies hematuria, denies infections. MUSKULOSKELETAL: Some pain in the left upper extremity near graft. INTEGUMENTARY: Denies rash, denies eczema. NEUROLOGICAL: Denies recent memory loss, no recent seizure activity. PSYCHIATRIC: Denies anxiety, denies depression. HEMATOLOGIC/LYMPHATIC: Denies anemia, denies enlarged lymph nodes. 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 Past Anesthesia/Blood Transfusion Reactions: Previous Problems w/ Anesthesia Additional Past Anesthesia/Blood Transfusion Reaction / Comment(s): confusion Past Psychological History: Anxiety, Depression Smoking Status: Current every day smoker Past Alcohol Use History: None Reported Past Drug Use History: Marijuana - Past Family History Father History Unknown: Yes Family Medical History: Unable to Obtain Mother History Unknown: Yes Family Medical History: No Reported History Grandfather History Unknown: Yes Family Medical History: Coronary Artery Disease (CAD) Additional Family Medical History / Comment(s): Diabetes mellitus type 2 Medications and Allergies Home Medications Medication Instructions Recorded Confirmed Type Docusate [Colace] 100 mg PO DAILY@0800 02/05/24 11/27/24 History Lidocaine 4% Patch 1 patch TOPICAL DAILY@0800 02/05/24 11/27/24 History Magnesium Hydroxide [Milk of 7,200 mg PO DAILY PRN 02/05/24 11/27/24 History Magnesia Concentrate] Ipratropium-Albuterol Nebulize 3 ml INHALATION RT-TID PRN each 02/14/24 11/27/24 Rx [Duoneb 0.5 mg-3 mg/3 ml Soln] polyethylene glycoL 3350 [Miralax] 17 gm PO AC-LUNCH #527 gm 02/14/24 11/27/24 Rx Acetaminophen [Tylenol] 650 mg PO Q4H PRN 02/18/24 11/27/24 History Biotene Dry Mouth/Throat 10 ml PO BID PRN 02/18/24 11/27/24 History Melatonin 1 mg PO HS tab 02/25/24 11/27/24 Rx Butalb/APAP/Caff 50-325-40Mg 1 tab PO Q4HR PRN 03/14/24 11/27/24 History [Fioricet 50-325-40] Darbepoetin Artur [Aranesp] 40 mcg SQ MO 03/14/24 11/27/24 History Loratadine [Claritin] 5 mg PO DAILY tab 03/30/24 11/27/24 Rx Aspirin 81 mg PO DAILY@0800 #30 tab 05/18/24 11/27/24 Rx Famotidine [Pepcid] 20 mg PO BID #60 tab 07/11/24 11/27/24 Rx Divalproex ER [Depakote ER] 500 mg PO BID@0800,1700 08/14/24 11/27/24 History Levothyroxine Sodium [Synthroid] 175 mcg PO DAILY@0600 08/14/24 11/27/24 History Metoclopramide [Reglan] 5 mg PO AC-TID PRN 08/14/24 11/27/24 History Pantoprazole [Protonix] 40 mg PO DAILY@0600 08/14/24 11/27/24 History Sertraline [Zoloft] 200 mg PO DAILY@0800 08/14/24 11/27/24 History traZODone HCL [Desyrel] 50 mg PO HS 08/14/24 11/27/24 History ALPRAZolam [Xanax] 0.25 mg PO BID PRN 09/04/24 11/27/24 History Calcium Acetate [PhosLo] 2,001 mg PO TID-W/MEALS 09/04/24 11/27/24 History Calcium Acetate [PhosLo] 667 mg PO DAILY PRN 09/04/24 11/27/24 History Colchicine [Colcrys] 0.3 mg PO DAILY #15 each 09/23/24 11/27/24 Rx Labetalol [Trandate] 500 mg PO BID #150 tab 09/23/24 11/27/24 Rx NIFEdipine XL [Procardia XL] 60 mg PO BID #60 tab 09/23/24 11/27/24 Rx hydrALAZINE HCL [Apresoline] 100 mg PO TID #90 tab 09/23/24 11/27/24 Rx Triphrocaps 1mg Cap 1 cap PO DAILY 10/10/24 11/27/24 History Insulin Aspart (For Pump) [NovoLOG 0.01 unit SQ-PUMP CONTINUOUS 11/02/24 11/27/24 History (For Pump)] Ondansetron Odt [Zofran ODT] 4 mg PO Q8HR PRN 11/02/24 11/27/24 History Isosorbide Mononitrate ER [Imdur] 120 mg PO DAILY tab 11/17/24 11/27/24 Rx cloNIDine HCL [Catapres] 0.3 mg PO TID tab 11/17/24 11/27/24 Rx Atorvastatin [Lipitor] 40 mg PO HS #0 11/23/24 11/27/24 Rx Pregabalin [Lyrica] 200 mg PO BID 15 Days #60 cap 11/23/24 11/27/24 Rx oxyCODONE-APAP 10-325MG [Percocet 1 tab PO Q4HR PRN #18 tab 11/23/24 11/27/24 Rx 10-325 mg] Allergies Allergy/AdvReac Type Severity Reaction Status Date / Time hydromorphone HCl Allergy Anaphylaxis Verified 11/27/24 09:33 [From Dilaudid] propoxyphene Allergy Rash/Hives Verified 11/27/24 09:33 [From Darvocet-N] tramadol Allergy Anaphylaxis Verified 11/27/24 09:33 ibuprofen [From Motrin] AdvReac unable to Verified 11/27/24 09:33 take due to kidney disease venom-honey bee AdvReac passes out Verified 11/27/24 09:33 [bee venom (honey bee)] Physical Exam Vitals: Vital Signs Temp Pulse Resp BP Pulse Ox 11/27/24 15:38 68 16 131/98 96 11/27/24 12:00 68 16 100/58 98 11/27/24 09:05 67 18 97/65 98 11/27/24 08:08 83 18 110/72 97 11/27/24 06:01 72 20 128/79 99 11/26/24 23:14 80 18 136/89 98 11/26/24 21:38 81 16 143/86 95 11/26/24 20:38 82 16 160/102 97 11/26/24 17:02 95 11/26/24 16:43 98.6 F 85 16 172/99 86 L Intake and Output 11/27/24 11/27/24 11/27/24 06:59 14:59 22:59 Intake Total 26.791 4.673 Balance 26.791 4.673 Intake: Intake, IV Titration 26.791 4.673 Amount Insulin Regular 100 unit 19.521 In Sodium Chloride 0.9% 100 ml @ 0.1 UNITS/KG/HR 6.231 mls/hr IV .[id number] [facility] Rx#:[id number] Insulin Regular 100 unit 7.27 4.673 In Sodium Chloride 0.9% 100 ml @ 0.1 UNITS/KG/HR 6.231 mls/hr IV .[id number] [facility] Rx#:[id number] GENERAL EXAM: Alert, 4-year-old female, on room air, comfortable in no apparent distress. HEAD: Normocephalic. EYES: Normal reaction of pupils, equal size. NOSE: Clear with pink turbinates. THROAT: No erythema or exudates. NECK: No masses, no JVD. CHEST: No chest wall deformity. LUNGS: Equal air entry with few scattered crackles in the bilateral bases. CVS: S1 and S2 normal with no audible murmur, regular rhythm. ABDOMEN: No hepatosplenomegaly, normal bowel sounds, no guarding or rigidity. SPINE: No scoliosis or deformity SKIN: No rashes CENTRAL NERVOUS SYSTEM: No focal deficits, tone is normal in all 4 extremities. EXTREMITIES: There is some edema over her left upper extremity graft. No clubbing, no cyanosis. Peripheral pulses are intact. Results - Laboratory Findings CBC and BMP: 11/26/24 17:47 11/27/24 13:25 Abnormal lab findings: Abnormal Labs 11/26/24 11/26/24 11/26/24 17:06 17:47 17:47 RBC 3.29 L Hgb 10.5 L Hct 33.5 L MCV 101.9 H RDW 17.0 H Neutrophils # 8.4 H Lymphocytes # 0.7 L Sodium 122 L Potassium 6.2 H* Chloride 79 L Carbon Dioxide BUN 67 H Creatinine 7.57 H* Glucose 684 H* POC Glucose (mg/dL) >600 H* Phosphorus AST 38 H ALT 45 H Alkaline Phosphatase 213 H Troponin I 11/26/24 11/26/24 11/26/24 18:31 18:31 20:02 RBC Hgb Hct MCV RDW Neutrophils # Lymphocytes # Sodium Potassium Chloride Carbon Dioxide BUN Creatinine Glucose POC Glucose (mg/dL) 450 H Phosphorus 7.8 H AST ALT Alkaline Phosphatase Troponin I 0.043 H* 11/26/24 11/26/24 11/26/24 20:14 20:14 21:05 RBC Hgb Hct MCV RDW Neutrophils # Lymphocytes # Sodium 127 L Potassium Chloride 87 L Carbon Dioxide 19 L BUN 63 H Creatinine 7.50 H* Glucose 372 H POC Glucose (mg/dL) 316 H Phosphorus 7.1 H AST ALT Alkaline Phosphatase Troponin I 11/26/24 11/26/24 11/27/24 22:02 23:12 01:23 RBC Hgb Hct MCV RDW Neutrophils # Lymphocytes # Sodium Potassium Chloride Carbon Dioxide BUN Creatinine Glucose POC Glucose (mg/dL) 256 H 155 H 57 L Phosphorus AST ALT Alkaline Phosphatase Troponin I 11/27/24 11/27/24 11/27/24 01:47 03:58 03:59 RBC Hgb Hct MCV RDW Neutrophils # Lymphocytes # Sodium 129 L Potassium Chloride 89 L Carbon Dioxide BUN 63 H Creatinine 8.07 H* Glucose 111 H POC Glucose (mg/dL) 122 H 124 H Phosphorus 6.9 H AST ALT Alkaline Phosphatase Troponin I 11/27/24 11/27/24 11/27/24 05:04 06:10 09:44 RBC Hgb Hct MCV RDW Neutrophils # Lymphocytes # Sodium 127 L Potassium 5.8 H Chloride 91 L Carbon Dioxide BUN 64 H Creatinine 7.95 H* Glucose 124 H POC Glucose (mg/dL) 128 H 126 H Phosphorus 6.4 H AST ALT Alkaline Phosphatase Troponin I 11/27/24 11/27/24 11/27/24 10:11 11:06 12:11 RBC Hgb Hct MCV RDW Neutrophils # Lymphocytes # Sodium Potassium Chloride Carbon Dioxide BUN Creatinine Glucose POC Glucose (mg/dL) 132 H 179 H 233 H Phosphorus AST ALT Alkaline Phosphatase Troponin I 11/27/24 13:25 RBC Hgb Hct MCV RDW Neutrophils # Lymphocytes # Sodium 128 L Potassium 5.4 H Chloride 89 L Carbon Dioxide 20 L BUN 65 H Creatinine 8.37 H* Glucose 212 H POC Glucose (mg/dL) Phosphorus 6.7 H AST ALT Alkaline Phosphatase Troponin I - Diagnostic Findings Chest x-ray: image reviewed Assessment and Plan Assessment: Hyperglycemia in a patient with a known history of diabetes mellitus utilizing a insulin pump at home End-stage renal disease requiring hemodialysis 4 times per week Left upper extremity pain near graft site, Doppler revealed patent graft Diabetes mellitus, insulin-dependent Hyponatremia secondary to above Hyperkalemia secondary to above Anemia of chronic disease History of CVA/TIA History of optic neuritis Hypothyroidism History of depression Plan: The patient was seen and evaluated Imaging, labs and medications reviewed Currently off the insulin drip Does not require ICU admission Admit to 3 S. To receive dialysis today Nephrology consulted We will continue to follow and make recommendations based on her clinical status I have personally seen and examined the patient, performed the documentation and the assessment and plan as written. Number of minutes spent on the visit: 20 Dictation was produced using [employer] dictation software. Please excuse any grammatical, word or spelling errors.
[2024-11-27 16:41] LABS: Glucose,Whole Blood 168 mg/dL (70-110)
[2024-11-27 17:58] LABS: Glucose,Whole Blood 155 mg/dL (70-110)
[2024-11-27 21:08] LABS: Glucose,Whole Blood 279 mg/dL (70-110)
[2024-11-28 06:06] LABS: Glucose,Whole Blood 489 mg/dL (70-110)
[2024-11-28] MEDS: INSULIN DETEMIR (LEVEMIR) 100 UNIT/ML SYR SQ SCH ×2 (06:31→21:04)
[2024-11-28 07:47] LABS: Anisocytosis Slight; Basophils # (A) 0.1 k/uL (0-0.2); Basophils % (A) 1 %; Eosinophils # (A) 0.1 k/uL (0-0.7); Eosinophils % (A) 1 %; HCT 32.9 % (34.0-46.0); HGB 9.5 gm/dL (11.4-16.0); Hypochromasia Marked; Lymphocytes # (A) 0.4 k/uL (1.0-4.8); Lymphocytes % (A) 5 %; MCH 31.7 pg (25.0-35.0); Macrocytosis Marked; Monocytes # (A) 0.3 k/uL (0-1.0); Monocytes % (A) 3 %; Neutrophils # (A) 7.7 k/uL (1.3-7.7); Neutrophils % (A) 90 %; Platelet Count 291 k/uL (150-450); RBC 3.01 m/uL (3.80-5.40); RDW 17.2 % (11.5-15.5); WBC 8.6 k/uL (3.8-10.6)
[2024-11-28 07:49] LABS: MCV 109.4 fL (80.0-100.0)
[2024-11-28 07:52] LABS: ALT 43 U/L (4-34); AST 31 U/L (14-36); African American GFR (CKD) 10 (>60 ml/min/1.73 sqM); Albumin 4.1 g/dL (3.5-5.0); Alkaline Phosphatase 165 U/L (38-126); Anion Gap 35 mmol/L; Blood Urea Nitrogen 34 mg/dL (7-17); Calcium 8.7 mg/dL (8.4-10.2); Chloride 88 mmol/L (98-107); Non-African American GFR(CKD) 8 (>60 ml/min/1.73 sqM); Sodium 131 mmol/L (137-145); Total Bilirubin 0.5 mg/dL (0.2-1.3); Total Protein 6.1 g/dL (6.3-8.2)
[2024-11-28 08:22] LABS: Anisocytosis (M) Present
[2024-11-28 08:47] LABS: Glucose 561 mg/dL (74-99)
[2024-11-28 08:48] LABS: Carbon Dioxide 8 mmol/L (22-30)
[2024-11-28] MEDS ORDERED: Potassium Replacement Protocol 1 EACH MISC MISCELLANE PRN ×2 (09:54)
[2024-11-28] MEDS ORDERED: DEXTROSE 50% SYRINGE 50 ML IVP PRN ×4 (09:54)
[2024-11-28] MEDS ORDERED: INSULIN REGULAR BOLUS (FROM DRIP BAG) IV ONE (09:54)
[2024-11-28] MEDS ORDERED: Magnesium Replacement Protocol 1 EACH MISC MISCELLANE PRN ×2 (09:54)
[2024-11-28 09:56] LABS: ABG HCO3 25 mmol/L (21-25); ABG Oxygen Saturation 98.2 % (94-97); ABG PCO2 40 mmHg (35-45); ABG PO2 87 mmHg (83-108); ABG TCO2 26 mmol/L (19-24); Allen Test Performed? Yes
[2024-11-28] MEDS ORDERED: INSULIN REGULAR 100 UNIT in SODIUM CHLORIDE 0.9% 100 ML IV SCH (10:00)
--- NOTE | 2024-11-28 10:08 | XR ---
EXAMINATION TYPE: XR chest 1V portable DATE OF EXAM: 11/28/2024 10:03 AM COMPARISON: None. CLINICAL INDICATION: Female, 34 years old with history of ams, TECHNIQUE: XR chest 1V portable view(s) obtained. FINDINGS: The heart size is enlarged. There is a catheter on the right with tips in the right atrium. The pulmonary vasculature is normal. The lungs are clear. IMPRESSION: 1. No acute pulmonary process. 2. Cardiomegaly [facility], , 11/28/2024 10:06 AM
[2024-11-28] MEDS: SODIUM BICARB 8.4% 50 ML SYR (1 MEQ/ML) IV STA (10:21)
[2024-11-28] MEDS: NALOXONE 0.4 MG/ML 1 ML VIAL IVP STA (10:23)
--- NOTE | 2024-11-28 10:45 | P.PN ---
Subjective Patient is seen in follow-up for end-stage renal disease. Insulin drip was stopped yesterday but bicarb level was 8 this morning with a blood glucose of 561. Patient is drowsy but arousable. Vital signs are stable. General: No acute distress. HEENT: Head exam is unremarkable. LUNGS: No audible rhonchi or wheezes. HEART: Rate and Rhythm are regular. ABDOMEN: No distention. EXTREMITITES: No edema. Objective - Vital Signs Vital signs: Vital Signs Temp 98.7 F 11/28/24 09:00 Pulse 86 11/28/24 09:00 Resp 16 11/28/24 10:23 BP 134/70 11/28/24 09:00 Pulse Ox 98 11/28/24 09:00 FiO2 Intake & Output 11/27/24 11/28/24 11/28/24 18:59 06:59 18:59 Intake Total 4.673 940 Output Total 6400 Balance 4.673 -5460 Weight 65 kg Intake: Intake, IV Titration 4.673 Amount Insulin Regular 100 unit 4.673 In Sodium Chloride 0.9% 100 ml @ 0.1 UNITS/KG/HR 6.231 mls/hr IV .[id number] [facility] Rx#:[id number] Oral 540 Hemodialysis 400 Output: Hemodialysis 3400 Hemodialysis Net Amount 3000 Other: Voiding Method Toilet # Voids 1 - Labs CBC & Chem 7: 11/28/24 07:17 11/28/24 07:17 Labs: Abnormal Lab Results - Last 24 Hours (Table) 11/27/24 11/27/24 11/27/24 Range/Units 11:06 12:11 13:25 RBC (3.80-5.40) m/uL Hgb (11.4-16.0) gm/dL Hct (34.0-46.0) % MCV (80.0-100.0) fL MCHC (31.0-37.0) g/dL RDW (11.5-15.5) % Lymphocytes # (1.0-4.8) k/uL Macrocytosis ABG Total CO2 (19-24) mmol/L ABG O2 Saturation (94-97) % Hemoglobin (11.4-16.0) gm/dL Sodium 128 L (137-145) mmol/L Potassium 5.4 H (3.5-5.1) mmol/L Chloride 89 L (98-107) mmol/L Carbon Dioxide 20 L (22-30) mmol/L BUN 65 H (7-17) mg/dL Creatinine 8.37 H* (0.52-1.04) mg/dL Glucose 212 H (74-99) mg/dL POC Glucose (mg/dL) 179 H 233 H (70-110) mg/dL Phosphorus 6.7 H (2.5-4.5) mg/dL ALT (4-34) U/L Alkaline Phosphatase (38-126) U/L Total Protein (6.3-8.2) g/dL 11/27/24 11/27/24 11/27/24 Range/Units 16:39 17:51 21:07 RBC (3.80-5.40) m/uL Hgb (11.4-16.0) gm/dL Hct (34.0-46.0) % MCV (80.0-100.0) fL MCHC (31.0-37.0) g/dL RDW (11.5-15.5) % Lymphocytes # (1.0-4.8) k/uL Macrocytosis ABG Total CO2 (19-24) mmol/L ABG O2 Saturation (94-97) % Hemoglobin (11.4-16.0) gm/dL Sodium (137-145) mmol/L Potassium (3.5-5.1) mmol/L Chloride (98-107) mmol/L Carbon Dioxide (22-30) mmol/L BUN (7-17) mg/dL Creatinine (0.52-1.04) mg/dL Glucose (74-99) mg/dL POC Glucose (mg/dL) 168 H 155 H 279 H (70-110) mg/dL Phosphorus (2.5-4.5) mg/dL ALT (4-34) U/L Alkaline Phosphatase (38-126) U/L Total Protein (6.3-8.2) g/dL 11/28/24 11/28/24 11/28/24 Range/Units 06:04 07:17 07:17 RBC 3.01 L (3.80-5.40) m/uL Hgb 9.5 L (11.4-16.0) gm/dL Hct 32.9 L (34.0-46.0) % MCV 109.4 H D (80.0-100.0) fL MCHC 29.0 L (31.0-37.0) g/dL RDW 17.2 H (11.5-15.5) % Lymphocytes # 0.4 L (1.0-4.8) k/uL Macrocytosis Marked A ABG Total CO2 (19-24) mmol/L ABG O2 Saturation (94-97) % Hemoglobin (11.4-16.0) gm/dL Sodium 131 L (137-145) mmol/L Potassium (3.5-5.1) mmol/L Chloride 88 L (98-107) mmol/L Carbon Dioxide 8 L* (22-30) mmol/L BUN 34 H (7-17) mg/dL Creatinine 6.07 H (0.52-1.04) mg/dL Glucose 561 H* (74-99) mg/dL POC Glucose (mg/dL) 489 H (70-110) mg/dL Phosphorus (2.5-4.5) mg/dL ALT 43 H (4-34) U/L Alkaline Phosphatase 165 H (38-126) U/L Total Protein 6.1 L (6.3-8.2) g/dL 11/28/24 Range/Units 09:51 RBC (3.80-5.40) m/uL Hgb (11.4-16.0) gm/dL Hct (34.0-46.0) % MCV (80.0-100.0) fL MCHC (31.0-37.0) g/dL RDW (11.5-15.5) % Lymphocytes # (1.0-4.8) k/uL Macrocytosis ABG Total CO2 26 H (19-24) mmol/L ABG O2 Saturation 98.2 H (94-97) % Hemoglobin 9.0 L (11.4-16.0) gm/dL Sodium (137-145) mmol/L Potassium (3.5-5.1) mmol/L Chloride (98-107) mmol/L Carbon Dioxide (22-30) mmol/L BUN (7-17) mg/dL Creatinine (0.52-1.04) mg/dL Glucose (74-99) mg/dL POC Glucose (mg/dL) (70-110) mg/dL Phosphorus (2.5-4.5) mg/dL ALT (4-34) U/L Alkaline Phosphatase (38-126) U/L Total Protein (6.3-8.2) g/dL Assessment and Plan Plan: Assessment: 1. End-stage renal disease maintained on hemodialysis on Wednesday schedule. Currently using permacath. She has a maturing left forearm AV graft. 2. DKA status post insulin drip. However patient with anion gap metabolic acidosis and blood glucose of 561 this morning and insulin drip will be resumed. ABG showed normal acid-base balance. 3. Hypervolemic hyponatremia. Also component of hypertonicity from hyperglycemia. 4. Hypertension with chronic kidney disease. Controlled. 5. Chronic kidney disease mineral bone disease. On PhosLo. Plan: Currently seen while undergoing hemodialysis. BMP will be repeated. Avoid aggressive IV fluids as in DKA protocol due to underlying hypervolemia.
[2024-11-28 10:48] LABS: Blood Urea Nitrogen 34 mg/dL (7-17)
[2024-11-28 10:55] LABS: African American GFR (CKD) 16 (>60 ml/min/1.73 sqM); Anion Gap 17 mmol/L; Blood Urea Nitrogen 26 mg/dL (7-17); Calcium 8.5 mg/dL (8.4-10.2); Carbon Dioxide 27 mmol/L (22-30); Chloride 90 mmol/L (98-107); Glucose 257 mg/dL (74-99); Non-African American GFR(CKD) 14 (>60 ml/min/1.73 sqM); Potassium 3.7 mmol/L (3.5-5.1); Sodium 134 mmol/L (137-145)
[2024-11-28 10:55] LABS: Glucose,Whole Blood 199 mg/dL (70-110)
[2024-11-28 11:00] LABS: Glucose 568 mg/dL (74-99)
[2024-11-28] MEDS: ONDANSETRON 4 MG/2 ML VIAL IVP PRN (11:03)
[2024-11-28] MEDS: INSULIN REGULAR 100 UNIT in SODIUM CHLORIDE 0.9% 100 ML IV SCH (11:03)
[2024-11-28] MEDS: SODIUM CHLORIDE 0.9% 1,000 ML IV SCH ×2 (11:04→11:49)
[2024-11-28] MEDS: INSULIN REGULAR BOLUS (FROM DRIP BAG) IV ONE (11:49)
[2024-11-28 12:12] LABS: Glucose,Whole Blood 108 mg/dL (70-110)
[2024-11-28] MEDS ORDERED: D5-0.45% NACL WITH KCL 20MEQ/L 1,000 ML IV SCH (13:00)
[2024-11-28 13:01] LABS: Glucose,Whole Blood 67 mg/dL (70-110)
--- NOTE | 2024-11-28 13:01 | P.PN ---
Subjective Progress Note Date: 11/28/24 Principal diagnosis: Acute DKA and acute fluid overload/pulmonary edema This is a 34-year-old female patient with a known history of diabetes mellitus with frequent admissions for DKA, gastroparesis, neuropathy, hypertension, end- stage renal disease receiving hemodialysis on Wednesday schedule, anxiety/depression, chronic and ongoing tobacco dependence, history of marijuana use methamphetamines. She came into the emergency room yesterday with uncontrolled blood sugars at home. She does wear an insulin pump attached to her abdomen that had been working according to her. Chest x-ray reveals evidence of mild fluid volume overload. Count 9.9. Hemoglobin 10.5. Platelets 309. Sodium 128. Potassium 5.4. Bicarb 20. BUN 65. Creatinine 8.37. C urrent glucose 212. She is seen today in consultation in the emergency department. She is currently sitting up on a stretcher. Awake and alert in no acute distress. Maintaining good O2 saturations in the 90s on room air. She is on her insulin pump. NovoLog sliding scale. She is having some complaints of pain over her left upper extremity graft site. Seen today on 11/28/2024, patient is feeling better, she is actually undergoing dialysis during my evaluation, seems to be doing a bit better today compared to yesterday, less shortness of breath, she is on room air, not in any distress. WBC count is 8.6 hemoglobin 9.5 ABG today showed a pO2 of 87 pCO2 4 0 pH of 7.40, basic metabolic profile is normal BUN is 34 creatinine 4.08 blood sugar still running high in the 568 range at times. This afternoon blood sugar is 108 Objective - Vital Signs Vital signs: Vital Signs Temp 98.9 F 11/28/24 11:19 Pulse 82 11/28/24 11:19 Resp 16 11/28/24 11:19 BP 106/56 11/28/24 11:19 Pulse Ox 98 11/28/24 11:19 FiO2 Intake & Output 11/27/24 11/28/24 11/28/24 18:59 06:59 18:59 Intake Total 4.673 940 7.987 Output Total 6400 Balance 4.673 -5460 7.987 Weight 65 kg Intake: Intake, IV Titration 4.673 7.987 Amount Insulin Regular 100 unit 4.673 In Sodium Chloride 0.9% 100 ml @ 0.1 UNITS/KG/HR 6.231 mls/hr IV .[id number] [facility] Rx#:[id number] Insulin Regular 100 unit 7.987 In Sodium Chloride 0.9% 100 ml @ 0.1 UNITS/KG/HR 6.565 mls/hr IV .[id number] [facility] Rx#:[id number] Oral 540 Hemodialysis 400 Output: Hemodialysis 3400 Hemodialysis Net Amount 3000 Other: Voiding Method Toilet # Voids 1 - Exam GENERAL EXAM: 34-year-old female in no distress on room air HEAD: Normocephalic. EYES: Normal reaction of pupils, equal size. NOSE: Clear with pink turbinates. THROAT: No erythema or exudates. NECK: No masses, no JVD. CHEST: No chest wall deformity. LUNGS: Crackles at the bases no rhonchi no wheezes CVS: Distant S1-S2, no S3 gallop, no murmur abdomen: Soft nontender no MAG no rebound no guarding SKIN: No rashes CENTRAL NERVOUS SYSTEM: No focal deficits, tone is normal in all 4 extremities. EXTREMITIES: There is some edema over her left upper extremity graft. No clubbing, no cyanosis. Peripheral pulses are intact. - Labs CBC & Chem 7: 11/28/24 07:17 11/28/24 09:54 Labs: Abnormal Lab Results - Last 24 Hours (Table) 11/27/24 11/27/24 11/27/24 Range/Units 13:25 16:39 17:51 RBC (3.80-5.40) m/uL Hgb (11.4-16.0) gm/dL Hct (34.0-46.0) % MCV (80.0-100.0) fL MCHC (31.0-37.0) g/dL RDW (11.5-15.5) % Lymphocytes # (1.0-4.8) k/uL Macrocytosis ABG Total CO2 (19-24) mmol/L ABG O2 Saturation (94-97) % Hemoglobin (11.4-16.0) gm/dL Sodium 128 L (137-145) mmol/L Potassium 5.4 H (3.5-5.1) mmol/L Chloride 89 L (98-107) mmol/L Carbon Dioxide 20 L (22-30) mmol/L BUN 65 H (7-17) mg/dL Creatinine 8.37 H* (0.52-1.04) mg/dL Glucose 212 H (74-99) mg/dL POC Glucose (mg/dL) 168 H 155 H (70-110) mg/dL Phosphorus 6.7 H (2.5-4.5) mg/dL ALT (4-34) U/L Alkaline Phosphatase (38-126) U/L Total Protein (6.3-8.2) g/dL 11/27/24 11/28/24 11/28/24 Range/Units 21:07 06:04 07:17 RBC 3.01 L (3.80-5.40) m/uL Hgb 9.5 L (11.4-16.0) gm/dL Hct 32.9 L (34.0-46.0) % MCV 109.4 H D (80.0-100.0) fL MCHC 29.0 L (31.0-37.0) g/dL RDW 17.2 H (11.5-15.5) % Lymphocytes # 0.4 L (1.0-4.8) k/uL Macrocytosis Marked A ABG Total CO2 (19-24) mmol/L ABG O2 Saturation (94-97) % Hemoglobin (11.4-16.0) gm/dL Sodium (137-145) mmol/L Potassium (3.5-5.1) mmol/L Chloride (98-107) mmol/L Carbon Dioxide (22-30) mmol/L BUN (7-17) mg/dL Creatinine (0.52-1.04) mg/dL Glucose (74-99) mg/dL POC Glucose (mg/dL) 279 H 489 H (70-110) mg/dL Phosphorus (2.5-4.5) mg/dL ALT (4-34) U/L Alkaline Phosphatase (38-126) U/L Total Protein (6.3-8.2) g/dL 11/28/24 11/28/24 11/28/24 Range/Units 07:17 09:46 09:51 RBC (3.80-5.40) m/uL Hgb (11.4-16.0) gm/dL Hct (34.0-46.0) % MCV (80.0-100.0) fL MCHC (31.0-37.0) g/dL RDW (11.5-15.5) % Lymphocytes # (1.0-4.8) k/uL Macrocytosis ABG Total CO2 26 H (19-24) mmol/L ABG O2 Saturation 98.2 H (94-97) % Hemoglobin 9.0 L (11.4-16.0) gm/dL Sodium 131 L 134 L (137-145) mmol/L Potassium (3.5-5.1) mmol/L Chloride 88 L 90 L (98-107) mmol/L Carbon Dioxide 8 L* (22-30) mmol/L BUN 34 H 26 H (7-17) mg/dL Creatinine 6.07 H 4.08 H (0.52-1.04) mg/dL Glucose 561 H* 257 H (74-99) mg/dL POC Glucose (mg/dL) (70-110) mg/dL Phosphorus (2.5-4.5) mg/dL ALT 43 H (4-34) U/L Alkaline Phosphatase 165 H (38-126) U/L Total Protein 6.1 L (6.3-8.2) g/dL 11/28/24 11/28/24 Range/Units 09:54 10:54 RBC (3.80-5.40) m/uL Hgb (11.4-16.0) gm/dL Hct (34.0-46.0) % MCV (80.0-100.0) fL MCHC (31.0-37.0) g/dL RDW (11.5-15.5) % Lymphocytes # (1.0-4.8) k/uL Macrocytosis ABG Total CO2 (19-24) mmol/L ABG O2 Saturation (94-97) % Hemoglobin (11.4-16.0) gm/dL Sodium (137-145) mmol/L Potassium (3.5-5.1) mmol/L Chloride (98-107) mmol/L Carbon Dioxide (22-30) mmol/L BUN 34 H (7-17) mg/dL Creatinine (0.52-1.04) mg/dL Glucose 568 H* (74-99) mg/dL POC Glucose (mg/dL) 199 H (70-110) mg/dL Phosphorus (2.5-4.5) mg/dL ALT (4-34) U/L Alkaline Phosphatase (38-126) U/L Total Protein (6.3-8.2) g/dL Assessment and Plan Assessment: Impression: Acute diabetic ketoacidosis, resolved Acute anion gap metabolic acidosis secondary to hyperglycemia and secondary to chronic renal failure End-stage renal disease requiring hemodialysis 4 times per week Left upper extremity pain near graft site, Doppler revealed patent graft Diabetes mellitus, insulin-dependent Hyponatremia secondary to above Hyperkalemia secondary to above Anemia of chronic disease History of CVA/TIA History of optic neuritis Hypothyroidism History of depression Recommendation: Continue present supportive care measures Continue hemodialysis as felt necessary by nephrology on the case Continue close monitoring of sugars and address accordingly patient is now on sliding scale coverage, that being addressed by her admitting physician Will continue to follow. Time with Patient: Less than 30
[2024-11-28 13:18] VITALS: BMI 21.7
[2024-11-28] MEDS: CALCIUM ACETATE 667 MG TAB PO PRN (13:33)
[2024-11-28] MEDS: CALCIUM ACETATE 667 MG TAB PO SCH (13:37)
[2024-11-28 13:43] LABS: Glucose,Whole Blood 84 mg/dL (70-110)
--- NOTE | 2024-11-28 13:50 | P.HPIM ---
History of Present Illness H&P Date: 11/28/24 History of present illness; 34-year-old lady with past medical history significant for insulin-dependent diabetes mellitus, end-stage renal disease on dialysis presented to the ER because of elevated blood sugar levels. Patient stated that for the last 3 to 4 days she has been having elevated blood sugar levels, patient said that she has been taking her insulin but her blood sugars continue be elevated. Patient denies any fever or chills. There is no complaint of orthopnea or PND. There is no complaint of chest pain or shortness of breath. Patient denies any nausea, vomiting, abdominal pain. Because of these elevated blood sugar levels, patient brought to the ER Initial lab work done in the ER showed WBC 9.9, hemoglobin 10.5, platelet count 309, sodium 122, potassium 6.2, BUN 67, creatinine 7.57, blood glucose 684, bilirubin 0.9, AST 38, ALT 45, alk phos 213, troponin 0.043 lipase 170, acetone positive EKG done in the ER showed heart rate of 81 , no ST segment elevation or depres broderick seen, no T-wave inversions seen. Chest x-ray done in the ER showed clear correlation for congestive heart failure Patient admitted to internal medicine service REVIEW OF SYSTEMS: CONSTITUTIONAL: As mentioned above HEENT: No recent visual problems or hearing problems. Denied any sore throat. CARDIOVASCULAR: No chest pain, orthopnea, PND, no palpitations, no syncope. PULMONARY: No shortness of breath, no cough, no hemoptysis. GASTROINTESTINAL: As mentioned above NEUROLOGICAL: No headaches, no weakness, no numbness. HEMATOLOGICAL: Denies any bleeding or petechiae. GENITOURINARY: Denies any burning micturition, frequency, or urgency. MUSCULOSKELETAL/RHEUMATOLOGICAL: Denies any joint pain, swelling, or any muscle pain. ENDOCRINE: Denies any polyuria or polydipsia. The rest of the 14-point review of systems is negative. PHYSICAL EXAMINATION: GENERAL: The patient is alert, ill looking, lethargic HEENT: Pupils are round and equally reacting to light. EOMI. No scleral icterus. No conjunctival pallor. Normocephalic, atraumatic. No pharyngeal erythema. No thyromegaly. CARDIOVASCULAR: S1 and S2 present. No murmurs, rubs, or gallops. PULMONARY: Chest is clear to auscultation, no wheezing or crackles. ABDOMEN: Soft, nontender, nondistended, normoactive bowel sounds. No palpable organomegaly. MUSCULOSKELETAL: No joint swelling or deformity. EXTREMITIES: No cyanosis, clubbing, or pedal edema. NEUROLOGICAL: Gross neurological examination did not reveal any focal deficits. SKIN: No rashes. Assessment and plan DKA Hyperglycemia Hyponatremia Hyperkalemia End-stage renal disease on dialysis Left upper extremity pain near graft site, Doppler revealed patent graft Diabetes mellitus, insulin-dependent Anemia of chronic disease History of CVA/TIA History of optic neuritis Hypothyroidism History of depression Monitor vital signs Monitor CBC Monitor CMP Continue telemetry monitoring Ordered serial blood glucose monitoring Ordered serial electrolytes Start insulin drip Once blood sugars less than 250, switch fluids to D5 half-normal saline Once anion gap closes switch to subcu insulin Consult nephrology Consult pulmonology Labs and medication were reviewed.. Continue same treatment. Continue with symptomatic treatment. Resume home medication. Monitor labs and vitals. DVT and GI prophylaxis. Further recommendations as per clinical course of the patie nt Dictation was produced using [employer] dictation software. please excuse any grammatical, word or spelling errors. 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 Past Anesthesia/Blood Transfusion Reactions: Previous Problems w/ Anesthesia Additional Past Anesthesia/Blood Transfusion Reaction / Comment(s): confusion Past Psychological History: Anxiety, Depression Smoking Status: Current every day smoker Past Alcohol Use History: None Reported Additional Past Alcohol Use History / Comment(s): quit smoking 01/08 hx of up to 3 ppd. Past Drug Use History: Marijuana Additional Drug Use History / Comment(s): previously using marijuana edibles in nov 2023. Not eating currently - Past Family History Father History Unknown: Yes Family Medical History: Unable to Obtain Mother History Unknown: Yes Family Medical History: No Reported History Grandfather History Unknown: Yes Family Medical History: Coronary Artery Disease (CAD) Additional Family Medical History / Comment(s): Diabetes mellitus type 2 Medications and Allergies Home Medications Medication Instructions Recorded Confirmed Type Docusate [Colace] 100 mg PO DAILY@0800 02/05/24 11/27/24 History Lidocaine 4% Patch 1 patch TOPICAL DAILY@0800 02/05/24 11/27/24 History Magnesium Hydroxide [Milk of 7,200 mg PO DAILY PRN 02/05/24 11/27/24 History Magnesia Concentrate] Ipratropium-Albuterol Nebulize 3 ml INHALATION RT-TID PRN each 02/14/24 11/27/24 Rx [Duoneb 0.5 mg-3 mg/3 ml Soln] polyethylene glycoL 3350 [Miralax] 17 gm PO AC-LUNCH #527 gm 02/14/24 11/27/24 Rx Acetaminophen [Tylenol] 650 mg PO Q4H PRN 02/18/24 11/27/24 History Biotene Dry Mouth/Throat 10 ml PO BID PRN 02/18/24 11/27/24 History Melatonin 1 mg PO HS tab 02/25/24 11/27/24 Rx Butalb/APAP/Caff 50-325-40Mg 1 tab PO Q4HR PRN 03/14/24 11/27/24 History [Fioricet 50-325-40] Darbepoetin Artur [Aranesp] 40 mcg SQ MO 03/14/24 11/27/24 History Loratadine [Claritin] 5 mg PO DAILY tab 03/30/24 11/27/24 Rx Aspirin 81 mg PO DAILY@0800 #30 tab 05/18/24 11/27/24 Rx Famotidine [Pepcid] 20 mg PO BID #60 tab 07/11/24 11/27/24 Rx Divalproex ER [Depakote ER] 500 mg PO BID@0800,1700 08/14/24 11/27/24 History Levothyroxine Sodium [Synthroid] 175 mcg PO DAILY@0600 08/14/24 11/27/24 History Metoclopramide [Reglan] 5 mg PO AC-TID PRN 08/14/24 11/27/24 History Pantoprazole [Protonix] 40 mg PO DAILY@0600 08/14/24 11/27/24 History Sertraline [Zoloft] 200 mg PO DAILY@0808/14/24 11/27/24 History traZODone HCL [Desyrel] 50 mg PO HS 08/14/24 11/27/24 History ALPRAZolam [Xanax] 0.25 mg PO BID PRN 09/04/24 11/27/24 History Calcium Acetate [PhosLo] 2,001 mg PO TID-W/MEALS 09/04/24 11/27/24 History Calcium Acetate [PhosLo] 667 mg PO DAILY PRN 09/04/24 11/27/24 History Colchicine [Colcrys] 0.3 mg PO DAILY #15 each 09/23/24 11/27/24 Rx Labetalol [Trandate] 500 mg PO BID #150 tab 09/23/24 11/27/24 Rx NIFEdipine XL [Procardia XL] 60 mg PO BID #60 tab 09/23/24 11/27/24 Rx hydrALAZINE HCL [Apresoline] 100 mg PO TID #90 tab 09/23/24 11/27/24 Rx Triphrocaps 1mg Cap 1 cap PO DAILY 10/10/24 11/27/24 History Insulin Aspart (For Pump) [NovoLOG 0.01 unit SQ-PUMP CONTINUOUS 11/02/24 11/27/24 History (For Pump)] Ondansetron Odt [Zofran ODT] 4 mg PO Q8HR PRN 11/02/24 11/27/24 History Isosorbide Mononitrate ER [Imdur] 120 mg PO DAILY tab 11/17/24 11/27/24 Rx cloNIDine HCL [Catapres] 0.3 mg PO TID tab 11/17/24 11/27/24 Rx Atorvastatin [Lipitor] 40 mg PO HS #0 11/23/24 11/27/24 Rx Pregabalin [Lyrica] 200 mg PO BID 15 Days #60 cap 11/23/24 11/27/24 Rx oxyCODONE-APAP 10-325MG [Percocet 1 tab PO Q4HR PRN #18 tab 11/23/24 11/27/24 Rx 10-325 mg] Allergies Allergy/AdvReac Type Severity Reaction Status Date / Time hydromorphone HCl Allergy Anaphylaxis Verified 11/27/24 09:33 [From Dilaudid] propoxyphene Allergy Rash/Hives Verified 11/27/24 09:33 [From Darvocet-N] tramadol Allergy Anaphylaxis Verified 11/27/24 09:33 ibuprofen [From Motrin] AdvReac unable to Verified 11/27/24 09:33 take due to kidney disease venom-honey bee AdvReac passes out Verified 11/27/24 09:33 [bee venom (honey bee)] Physical Exam Vitals: Vital Signs Temp Pulse Pulse Resp BP BP Pulse Ox 11/28/24 03:50 98.2 F 93 18 113/70 96 11/28/24 01:14 82 18 11/28/24 00:00 98.4 F 82 18 144/76 96 11/27/24 22:04 78 11/27/24 20:25 98.3 F 78 18 143/80 99 11/27/24 19:34 97.8 F 74 16 167/91 11/27/24 15:38 68 16 131/98 96 11/27/24 12:00 68 16 100/58 98 Intake and Output 11/27/24 11/28/24 11/28/24 22:59 06:59 14:59 Intake Total 400 540 Output Total 6400 Balance -6000 540 Intake: Oral 540 Hemodialysis 400 Output: Hemodialysis 3400 Hemodialysis Net Amount 3000 Other: Voiding Method Toilet Toilet # Voids 1 Weight 61.689 kg 65 kg Results CBC & Chem 7: 11/28/24 07:17 11/28/24 09:54 Labs: Abnormal Lab Results - Last 24 Hours (Table) 11/27/24 11/27/24 11/27/24 Range/Units 09:44 10:11 11:06 RBC (3.80-5.40) m/uL Hgb (11.4-16.0) gm/dL Hct (34.0-46.0) % MCV (80.0-100.0) fL MCHC (31.0-37.0) g/dL RDW (11.5-15.5) % Lymphocytes # (1.0-4.8) k/uL Macrocytosis Sodium 127 L (137-145) mmol/L Potassium 5.8 H (3.5-5.1) mmol/L Chloride 91 L (98-107) mmol/L Carbon Dioxide (22-30) mmol/L BUN 64 H (7-17) mg/dL Creatinine 7.95 H* (0.52-1.04) mg/dL Glucose 124 H (74-99) mg/dL POC Glucose (mg/dL) 132 H 179 H (70-110) mg/dL Phosphorus 6.4 H (2.5-4.5) mg/dL ALT (4-34) U/L Alkaline Phosphatase (38-126) U/L Total Protein (6.3-8.2) g/dL 11/27/24 11/27/24 11/27/24 Range/Units 12:11 13: 16:39 RBC (3.80-5.40) m/uL Hgb (11.4-16.0) gm/dL Hct (34.0-46.0) % MCV (80.0-100.0) fL MCHC (31.0-37.0) g/dL RDW (11.5-15.5) % Lymphocytes # (1.0-4.8) k/uL Macrocytosis Sodium 128 L (137-145) mmol/L Potassium 5.4 H (3.5-5.1) mmol/L Chloride 89 L (98-107) mmol/L Carbon Dioxide 20 L (22-30) mmol/L BUN 65 H (7-17) mg/dL Creatinine 8.37 H* (0.52-1.04) mg/dL Glucose 212 H (74-99) mg/dL POC Glucose (mg/dL) 233 H 168 H (70-110) mg/dL Phosphorus 6.7 H (2.5-4.5) mg/dL ALT (4-34) U/L Alkaline Phosphatase (38-126) U/L Total Protein (6.3-8.2) g/dL 11/27/24 11/27/24 11/28/24 Range/Units 17:51 21:07 06:04 RBC (3.80-5.40) m/uL Hgb (11.4-16.0) gm/dL Hct (34.0-46.0) % MCV (80.0-100.0) fL MCHC (31.0-37.0) g/dL RDW (11.5-15.5) % Lymphocytes # (1.0-4.8) k/uL Macrocytosis Sodium (137-145) mmol/L Potassium (3.5-5.1) mmol/L Chloride (98-107) mmol/L Carbon Dioxide (22-30) mmol/L BUN (7-17) mg/dL Creatinine (0.52-1.04) mg/dL Glucose (74-99) mg/dL POC Glucose (mg/dL) 155 H 279 H 489 H (70-110) mg/dL Phosphorus (2.5-4.5) mg/dL ALT (4-34) U/L Alkaline Phosphatase (38-126) U/L Total Protein (6.3-8.2) g/dL 11/28/24 11/28/24 Range/Units 07:17 07:17 RBC 3.01 L (3.80-5.40) m/uL Hgb 9.5 L (11.4-16.0) gm/dL Hct 32.9 L (34.0-46.0) % MCV 109.4 H D (80.0-100.0) fL MCHC 29.0 L (31.0-37.0) g/dL RDW 17.2 H (11.5-15.5) % Lymphocytes # 0.4 L (1.0-4.8) k/uL Macrocytosis Marked A Sodium 131 L (137-145) mmol/L Potassium (3.5-5.1) mmol/L Chloride 88 L (98-107) mmol/L Carbon Dioxide 8 L* (22-30) mmol/L BUN 34 H (7-17) mg/dL Creatinine 6.07 H (0.52-1.04) mg/dL Glucose 561 H* (74-99) mg/dL POC Glucose (mg/dL) (70-110) mg/dL Phosphorus (2.5-4.5) mg/dL ALT 43 H (4-34) U/L Alkaline Phosphatase 165 H (38-126) U/L Total Protein 6.1 L (6.3-8.2) g/dL Thrombosis Risk Factor Assmnt - Choose All That Apply Any of the Below Risk Factors Present?: No Other Risk Factors: No Other congenital or acquired thrombophilia - If yes, enter type in comment: No Thrombosis Risk Factor Assessment Level: Very Low Risk
[2024-11-28 14:38] LABS: Glucose,Whole Blood 87 mg/dL (70-110)
[2024-11-28 15:10] LABS: Glucose,Whole Blood 149 mg/dL (70-110)
[2024-11-28 15:42] LABS: African American GFR (CKD) 26 (>60 ml/min/1.73 sqM); Anion Gap 8 mmol/L; Blood Urea Nitrogen 16 mg/dL (7-17); Carbon Dioxide 33 mmol/L (22-30); Chloride 92 mmol/L (98-107); Glucose 68 mg/dL (74-99); Non-African American GFR(CKD) 22 (>60 ml/min/1.73 sqM); Phosphorus 3.4 mg/dL (2.5-4.5); Potassium 4.1 mmol/L (3.5-5.1); Sodium 133 mmol/L (137-145)
[2024-11-28 16:26] LABS: Glucose,Whole Blood 47 mg/dL (70-110)
[2024-11-28 16:44] LABS: Glucose,Whole Blood 44 mg/dL (70-110)
[2024-11-28] MEDS: DEXTROSE 50% SYRINGE 50 ML IVP PRN (16:47)
[2024-11-28 17:04] LABS: Glucose,Whole Blood 227 mg/dL (70-110)
[2024-11-28 17:50] LABS: Glucose,Whole Blood 138 mg/dL (70-110)
[2024-11-28] MEDS: DIVALPROEX ER 500 MG TAB.ER.24H PO SCH (18:46)
[2024-11-28 19:35] LABS: African American GFR (CKD) 21 (>60 ml/min/1.73 sqM); Anion Gap 10 mmol/L; Blood Urea Nitrogen 18 mg/dL (7-17); Carbon Dioxide 32 mmol/L (22-30); Chloride 90 mmol/L (98-107); Glucose 95 mg/dL (74-99); Non-African American GFR(CKD) 19 (>60 ml/min/1.73 sqM); Phosphorus 4.1 mg/dL (2.5-4.5); Potassium 4.1 mmol/L (3.5-5.1); Sodium 132 mmol/L (137-145)
[2024-11-28 19:57] LABS: Glucose,Whole Blood 94 mg/dL (70-110)
[2024-11-28] MEDS ORDERED: INSULIN DETEMIR (LEVEMIR) 100 UNIT/ML SYR SQ SCH (21:00)
[2024-11-28] MEDS: INSULIN ASPART (NovoLOG) 100 UNIT/ML VIAL SQ SCH (21:02)
[2024-11-28] MEDS: ATORVASTATIN 40 MG TAB PO SCH (21:03)
[2024-11-29 02:17] LABS: Glucose,Whole Blood 38 mg/dL (70-110)
[2024-11-29 02:17] LABS: Glucose,Whole Blood 131 mg/dL (70-110)
[2024-11-29 05:02] LABS: Glucose,Whole Blood 76 mg/dL (70-110)
[2024-11-29 06:02] LABS: Glucose,Whole Blood 92 mg/dL (70-110)
[2024-11-29 08:51] LABS: Glucose,Whole Blood 179 mg/dL (70-110)
[2024-11-29] MEDS: INSULIN ASPART (NovoLOG) 100 UNIT/ML VIAL SQ SCH (08:53)
[2024-11-29] MEDS: ASPIRIN 81 MG PO SCH (09:02)
--- NOTE | 2024-11-29 10:28 | P.PN ---
Subjective Patient is seen in follow-up for end-stage renal disease. Awake and alert. Feels better today. On nasal cannula. Vital signs are stable. General: No acute distress. HEENT: Head exam is unremarkable. LUNGS: No audible rhonchi or wheezes. HEART: Rate and Rhythm are regular. ABDOMEN: No distention. EXTREMITITES: No edema. Objective - Vital Signs Vital signs: Vital Signs Temp 98.2 F 11/29/24 08:55 Pulse 87 11/29/24 08:55 Resp 16 11/29/24 08:55 BP 156/70 11/29/24 08:55 Pulse Ox 96 11/29/24 08:55 FiO2 Intake & Output 11/28/24 11/29/24 11/29/24 18:59 06:59 18:59 Intake Total 1372.774 222 Output Total 5424 Balance -4051.226 222 Weight 65 kg 63 kg Intake: Intake, IV Titration 12.774 Amount Insulin Regular 100 unit 12.774 In Sodium Chloride 0.9% 100 ml @ 0.1 UNITS/KG/HR 6.565 mls/hr IV .[id number] [facility] Rx#:[id number] Oral 360 222 Hemodialysis 1000 Output: Hemodialysis 3212 Hemodialysis Net Amount 2212 Other: Voiding Method Toilet Toilet # Voids 1 0 - Labs CBC & Chem 7: 11/28/24 07:17 11/28/24 19:09 Labs: Abnormal Lab Results - Last 24 Hours (Table) 11/28/24 11/28/24 11/28/24 Range/Units 09:46 09:54 10:54 Sodium 134 L (137-145) mmol/L Chloride 90 L (98-107) mmol/L Carbon Dioxide (22-30) mmol/L BUN 26 H 34 H (7-17) mg/dL Creatinine 4.08 H (0.52-1.04) mg/dL Glucose 257 H 568 H* (74-99) mg/dL POC Glucose (mg/dL) 199 H (70-110) mg/dL 11/28/24 11/28/24 11/28/24 Range/Units 12:59 15:08 15:17 Sodium 133 L (137-145) mmol/L Chloride 92 L (98-107) mmol/L Carbon Dioxide 33 H (22-30) mmol/L BUN (7-17) mg/dL Creatinine 2.70 H (0.52-1.04) mg/dL Glucose 68 L (74-99) mg/dL POC Glucose (mg/dL) 67 L 149 H (70-110) mg/dL 11/28/24 11/28/24 11/28/24 Range/Units 16:25 16:42 17:02 Sodium (137-145) mmol/L Chloride (98-107) mmol/L Carbon Dioxide (22-30) mmol/L BUN (7-17) mg/dL Creatinine (0.52-1.04) mg/dL Glucose (74-99) mg/dL POC Glucose (mg/dL) 47 L* 44 L* 227 H (70-110) mg/dL 11/28/24 11/28/24 11/29/24 Range/Units 17:49 19:09 01:54 Sodium 132 L (137-145) mmol/L Chloride 90 L (98-107) mmol/L Carbon Dioxide 32 H (22-30) mmol/L BUN 18 H (7-17) mg/dL Creatinine 3.14 H (0.52-1.04) mg/dL Glucose (74-99) mg/dL POC Glucose (mg/dL) 138 H 38 L* (70-110) mg/dL 11/29/24 11/29/24 Range/Units 02:16 08:49 Sodium (137-145) mmol/L Chloride (98-107) mmol/L Carbon Dioxide (22-30) mmol/L BUN (7-17) mg/dL Creatinine (0.52-1.04) mg/dL Glucose (74-99) mg/dL POC Glucose (mg/dL) 131 H 179 H (70-110) mg/dL Assessment and Plan Plan: Assessment: 1. End-stage renal disease maintained on hemodialysis on Wednesday schedule. Currently using permacath. She has a maturing left forearm AV graft. 2. DKA status post insulin drip. 3. Hypervolemic hyponatremia. Also component of hypertonicity from hyperglycemia. 4. Hypertension with chronic kidney disease. Stable. 5. Chronic kidney disease mineral bone disease. On PhosLo. Plan: Hemodialysis tomorrow.
[2024-11-29 11:23] LABS: Glucose,Whole Blood 333 mg/dL (70-110)
--- NOTE | 2024-11-29 13:01 | P.PN ---
Subjective Progress Note Date: 11/29/24 34-year-old lady with past medical history significant for insulin-dependent diabetes mellitus, end-stage renal disease on dialysis presented to the ER because of elevated blood sugar levels. Patient stated that for the last 3 to 4 days she has been having elevated blood sugar levels, patient said that she has been taking her insulin but her blood sugars continue be elevated. Patient denies any fever or chills. There is no complaint of orthopnea or PND. There is no complaint of chest pain or shortness of breath. Patient denies any nausea, vomiting, abdominal pain. Because of these elevated blood sugar levels, patient brought to the ER Initial lab work done in the ER showed WBC 9.9, hemoglobin 10.5, platelet count 309, sodium 122, potassium 6.2, BUN 67, creatinine 7.57, blood glucose 684, bi lirubin 0.9, AST 38, ALT 45, alk phos 213, troponin 0.043 lipase 170, acetone positive EKG done in the ER showed heart rate of 81 , no ST segment elevation or depression seen, no T-wave inversions seen. Chest x-ray done in the ER showed clear correlation for congestive heart failure Patient admitted to internal medicine service 11/29. Patient seen and examined. Patient is lethargic but more awake compared to yesterday. Patient is off the insulin drip. Vital signs stable REVIEW OF SYSTEMS: CONSTITUTIONAL: No fever, no malaise,. CARDIOVASCULAR: No chest pain, no palpitations, no syncope. PULMONARY: No shortness of breath, no cough, GASTROINTESTINAL: No diarrhea, no nausea, no vomiting, no abdominal pain. NEUROLOGICAL: No headaches, no weakness, PHYSICAL EXAMINATION: GENERAL: The patient is alert, chronically ill looking HEENT: Pupils are round and equally reacting to light. EOMI. No scleral icterus. No conjunctival pallor. Normocephalic, atraumatic. No pharyngeal erythema. No thyromegaly. CARDIOVASCULAR: S1 and S2 present. No murmurs, rubs, or gallops. PULMONARY: Chest is clear to auscultation, no wheezing or crackles. ABDOMEN: Soft, nontender, nondistended, normoactive bowel sounds. No palpable organomegaly. MUSCULOSKELETAL: No joint swelling or deformity. EXTREMITIES: No cyanosis, clubbing, or pedal edema. NEUROLOGICAL: Gross neurological examination did not reveal any focal deficits. SKIN: No rashes. Assessment and plan DKA Hyperglycemia Hyponatremia Hyperkalemia End-stage renal disease on dialysis Left upper extremity pain near graft site, Doppler revealed patent graft Diabetes mellitus, insulin-dependent Anemia of chronic disease History of CVA/TIA History of optic neuritis Hypothyroidism History of depression Monitor vital signs Monitor CBC Monitor CMP Continue telemetry monitoring Monitor blood sugar levels Continue insulin Levemir 10 units twice a day, NovoLog 7 units with meals and sliding scale insulin Continue Synthroid Continue aspirin, Lipitor Continue hydralazine Nephrology following Case management consulted, discussed with them regarding patient getting new PCP appointment Labs and medication were reviewed.. Continue same treatment. Continue with symptomatic treatment. Resume home medication. Monitor labs and vitals. DVT and GI prophylaxis. Further recommendations as per clinical course of the patient Dictation was produced using [employer] dictation software. please excuse any grammatical, word or spelling errors. Objective - Vital Signs Vital signs: Vital Signs Temp 98.3 F 11/29/24 11:30 Pulse 79 11/29/24 11:30 Resp 16 11/29/24 11:30 BP 117/68 11/29/24 11:30 Pulse Ox 99 11/29/24 11:30 FiO2 Intake & Output 11/28/24 11/29/24 11/29/24 18:59 06:59 18:59 Intake Total 1372.774 222 Output Total 5424 Balance -4051.226 222 Weight 65 kg 63 kg Intake: Intake, IV Titration 12.774 Amount Insulin Regular 100 unit 12.774 In Sodium Chloride 0.9% 100 ml @ 0.1 UNITS/KG/HR 6.565 mls/hr IV .[id number] Rx#:[id number] Oral 360 222 Hemodialysis 1000 Output: Hemodialysis 3212 Hemodialysis Net Amount 2212 Other: Voiding Method Toilet Toilet # Voids 1 0 - Labs CBC & Chem 7: 11/28/24 07:17 11/28/24 19:09 Labs: Abnormal Lab Results - Last 24 Hours (Table) 11/28/24 11/28/24 11/28/24 Range/Units 12:59 15:08 15:17 Sodium 133 L (137-145) mmol/L Chloride 92 L (98-107) mmol/L Carbon Dioxide 33 H (22-30) mmol/L BUN (7-17) mg/dL Creatinine 2.70 H (0.52-1.04) mg/dL Glucose 68 L (74-99) mg/dL POC Glucose (mg/dL) 67 L 149 H (70-110) mg/dL 11/28/24 11/28/24 11/28/24 Range/Units 16:25 16:42 17:02 Sodium (137-145) mmol/L Chloride (98-107) mmol/L Carbon Dioxide (22-30) mmol/L BUN (7-17) mg/dL Creatinine (0.52-1.04) mg/dL Glucose (74-99) mg/dL POC Glucose (mg/dL) 47 L* 44 L* 227 H (70-110) mg/dL 11/28/24 11/28/24 11/29/24 Range/Units 17:49 19:09 01:54 Sodium 132 L (137-145) mmol/L Chloride 90 L (98-107) mmol/L Carbon Dioxide 32 H (22-30) mmol/L BUN 18 H (7-17) mg/dL Creatinine 3.14 H (0.52-1.04) mg/dL Glucose (74-99) mg/dL POC Glucose (mg/dL) 138 H 38 L* (70-110) mg/dL 11/29/24 11/29/24 11/29/24 Range/Units 02:16 08:49 11:22 Sodium (137-145) mmol/L Chloride (98-107) mmol/L Carbon Dioxide (22-30) mmol/L BUN (7-17) mg/dL Creatinine (0.52-1.04) mg/dL Glucose (74-99) mg/dL POC Glucose (mg/dL) 131 H 179 H 333 H (70-110) mg/dL
--- NOTE | 2024-11-29 15:50 | P.PN ---
Subjective Progress Note Date: 11/29/24 Principal diagnosis: Acute DKA and acute fluid overload/pulmonary edema This is a 34-year-old female patient with a known history of diabetes mellitus with frequent admissions for DKA, gastroparesis, neuropathy, hypertension, end- stage renal disease receiving hemodialysis on Wednesday schedule, anxiety/depression, chronic and ongoing tobacco dependence, history of marijuana use methamphetamines. She came into the emergency room yesterday with uncontrolled blood sugars at home. She does wear an insulin pump attached to her abdomen that had been working according to her. Chest x-ray reveals evidence of mild fluid volume overload. Count 9.9. Hemoglobin 10.5. Platelets 309. Sodium 128. Potassium 5.4. Bicarb 20. BUN 65. Creatinine 8.37. C urrent glucose 212. She is seen today in consultation in the emergency department. She is currently sitting up on a stretcher. Awake and alert in no acute distress. Maintaining good O2 saturations in the 90s on room air. She is on her insulin pump. NovoLog sliding scale. She is having some complaints of pain over her left upper extremity graft site. Seen today on 11/28/2024, patient is feeling better, she is actually undergoing dialysis during my evaluation, seems to be doing a bit better today compared to yesterday, less shortness of breath, she is on room air, not in any distress. WBC count is 8.6 hemoglobin 9.5 ABG today showed a pO2 of 87 pCO2 4 0 pH of 7.40, basic metabolic profile is normal BUN is 34 creatinine 4.08 blood sugar still running high in the 568 range at times. This afternoon blood sugar is 108 Seen today on 11/29/2024, patient is doing well, obviously she is responding well to dialysis and went through DKA protocol and her DKA has resolved, patient is doing much better today compared to the last 2 days. She is on room air, not in any distress WBC count is 8.6 hemoglobin is 9.5 blood sugar continues to fluctuate anywhere between 94 up to 333. Objective - Vital Signs Vital signs: Vital Signs Temp 98.3 F 11/29/24 11:30 Pulse 79 11/29/24 11:30 Resp 16 11/29/24 11:30 BP 117/68 11/29/24 11:30 Pulse Ox 99 11/29/24 11:30 FiO2 Intake & Output 11/28/24 11/29/24 11/29/24 18:59 06:59 18:59 Intake Total 1372.774 222 Output Total 5424 Balance -4051.226 222 Weight 65 kg 63 kg Intake: Intake, IV Titration 12.774 Amount Insulin Regular 100 unit 12.774 In Sodium Chloride 0.9% 100 ml @ 0.1 UNITS/KG/HR 6.565 mls/hr IV .[id number] [facility] Rx#:[id number] Oral 360 222 Hemodialysis 1000 Output: Hemodialysis 3212 Hemodialysis Net Amount 2212 Other: Voiding Method Toilet Toilet # Voids 1 0 0 - Exam GENERAL EXAM: 34-year-old female in no distress on room air HEAD: Normocephalic. EYES: Normal reaction of pupils, equal size. NOSE: Clear with pink turbinates. THROAT: No erythema or exudates. NECK: No masses, no JVD. CHEST: No chest wall deformity. LUNGS: Crackles at the bases no rhonchi no wheezes CVS: Distant S1-S2, no S3 gallop, no murmur abdomen: Soft nontender no MAG no rebound no guarding SKIN: No rashes CENTRAL NERVOUS SYSTEM: No focal deficits, tone is normal in all 4 extremities. EXTREMITIES: There is some edema over her left upper extremity graft. No clubbing, no cyanosis. Peripheral pulses are intact. - Labs CBC & Chem 7: 11/28/24 07:17 11/28/24 19:09 Labs: Abnormal Lab Results - Last 24 Hours (Table) 11/28/24 11/28/24 11/28/24 Range/Units 16:25 16:42 17:02 Sodium (137-145) mmol/L Chloride (98-107) mmol/L Carbon Dioxide (22-30) mmol/L BUN (7-17) mg/dL Creatinine (0.52-1.04) mg/dL POC Glucose (mg/dL) 47 L* 44 L* 227 H (70-110) mg/dL 11/28/24 11/28/24 11/29/24 Range/Units 17:49 19:09 01:54 Sodium 132 L (137-145) mmol/L Chloride 90 L (98-107) mmol/L Carbon Dioxide 32 H (22-30) mmol/L BUN 18 H (7-17) mg/dL Creatinine 3.14 H (0.52-1.04) mg/dL POC Glucose (mg/dL) 138 H 38 L* (70-110) mg/dL 11/29/24 11/29/24 11/29/24 Range/Units 02:16 08:49 11:22 Sodium (137-145) mmol/L Chloride (98-107) mmol/L Carbon Dioxide (22-30) mmol/L BUN (7-17) mg/dL Creatinine (0.52-1.04) mg/dL POC Glucose (mg/dL) 131 H 179 H 333 H (70-110) mg/dL Assessment and Plan Assessment: Impression: Acute diabetic ketoacidosis Acute anion gap metabolic acidosis secondary to hyperglycemia and secondary to chronic renal failure End-stage renal disease requiring hemodialysis 4 times per week Left upper extremity pain near graft site, Doppler revealed patent graft Diabetes mellitus, insulin-dependent Hyponatremia secondary to above Hyperkalemia secondary to above Anemia of chronic disease History of CVA/TIA History of optic neuritis Hypothyroidism History of depression Recommendation: Continue present supportive care measures Continue hemodialysis as felt necessary by nephrology on the case Continue close monitoring of sugars and address accordingly patient is now on sliding scale coverage, that being addressed by her admitting physician Will continue to follow. Time with Patient: Less than 30
[2024-11-29 16:11] LABS: Glucose,Whole Blood 161 mg/dL (70-110)
[2024-11-29 20:11] LABS: Glucose,Whole Blood 114 mg/dL (70-110)
[2024-11-30 02:20] LABS: Glucose,Whole Blood 88 mg/dL (70-110)
[2024-11-30 04:39] LABS: Glucose,Whole Blood 72 mg/dL (70-110)
[2024-11-30 05:52] LABS: Glucose,Whole Blood 74 mg/dL (70-110)
[2024-11-30 08:14] LABS: Anisocytosis Slight; Basophils % (A) 0 %; Eosinophils # (A) 0.5 k/uL (0-0.7); Eosinophils % (A) 4 %; HGB 10.1 gm/dL (11.4-16.0); Hypochromasia Marked; Lymphocytes # (A) 0.8 k/uL (1.0-4.8); Lymphocytes % (A) 6 %; MCH 32.4 pg (25.0-35.0); MCHC 31.6 g/dL (31.0-37.0); Macrocytosis Moderate; Monocytes # (A) 0.6 k/uL (0-1.0); Monocytes % (A) 5 %; Neutrophils # (A) 11.3 k/uL (1.3-7.7); Neutrophils % (A) 84 %; Platelet Count 264 k/uL (150-450); RBC 3.12 m/uL (3.80-5.40); RDW 16.6 % (11.5-15.5); WBC 13.5 k/uL (3.8-10.6)
[2024-11-30 08:37] LABS: ALT 40 U/L (4-34); AST 29 U/L (14-36); African American GFR (CKD) 9 (>60 ml/min/1.73 sqM); Albumin 3.9 g/dL (3.5-5.0); Alkaline Phosphatase 157 U/L (38-126); Anion Gap 9 mmol/L; Blood Urea Nitrogen 30 mg/dL (7-17); Carbon Dioxide 31 mmol/L (22-30); Chloride 92 mmol/L (98-107); Glucose 83 mg/dL (74-99); Non-African American GFR(CKD) 8 (>60 ml/min/1.73 sqM); Potassium 4.5 mmol/L (3.5-5.1); Sodium 132 mmol/L (137-145); Total Bilirubin 0.5 mg/dL (0.2-1.3); Total Protein 6.4 g/dL (6.3-8.2)
[2024-11-30 08:55] LABS: MCV 102.4 fL (80.0-100.0)
[2024-11-30 09:18] VITALS: RESP 18
--- NOTE | 2024-11-30 09:57 | P.PN ---
Subjective Patient is seen in follow-up for end-stage renal disease. Awake and alert. Tolerating dialysis well. No active complaints. Vital signs are stable. General: No acute distress. HEENT: Head exam is unremarkable. LUNGS: No audible rhonchi or wheezes. HEART: Rate and Rhythm are regular. ABDOMEN: No distention. EXTREMITITES: No edema. Objective - Vital Signs Vital signs: Vital Signs Temp 98.0 F 11/30/24 08:10 Pulse 84 11/30/24 08:10 Resp 18 11/30/24 08:10 BP 106/65 11/30/24 08:10 Pulse Ox 100 11/30/24 08:10 FiO2 Intake & Output 11/29/24 11/30/24 11/30/24 18:59 06:59 18:59 Intake Total 180 Balance 180 Weight 64 kg Intake: Oral 180 Other: Voiding Method Toilet Toilet Toilet # Voids 0 - Labs CBC & Chem 7: 11/30/24 07:19 11/30/24 07:16 Labs: Abnormal Lab Results - Last 24 Hours (Table) 11/29/24 11/29/24 11/29/24 Range/Units 11:22 16:10 20:10 WBC (3.8-10.6) k/uL RBC (3.80-5.40) m/uL Hgb (11.4-16.0) gm/dL Hct (34.0-46.0) % MCV (80.0-100.0) fL RDW (11.5-15.5) % Neutrophils # (1.3-7.7) k/uL Lymphocytes # (1.0-4.8) k/uL Sodium (137-145) mmol/L Chloride (98-107) mmol/L Carbon Dioxide (22-30) mmol/L BUN (7-17) mg/dL Creatinine (0.52-1.04) mg/dL POC Glucose (mg/dL) 333 H 161 H 114 H (70-110) mg/dL ALT (4-34) U/L Alkaline Phosphatase (38-126) U/L 11/30/24 11/30/24 Range/Units 07:16 07:19 WBC 13.5 H (3.8-10.6) k/uL RBC 3.12 L (3.80-5.40) m/uL Hgb 10.1 L (11.4-16.0) gm/dL Hct 32.0 L (34.0-46.0) % MCV 102.4 H D (80.0-100.0) fL RDW 16.6 H (11.5-15.5) % Neutrophils # 11.3 H (1.3-7.7) k/uL Lymphocytes # 0.8 L (1.0-4.8) k/uL Sodium 132 L (137-145) mmol/L Chloride 92 L (98-107) mmol/L Carbon Dioxide 31 H (22-30) mmol/L BUN 30 H (7-17) mg/dL Creatinine 6.16 H (0.52-1.04) mg/dL POC Glucose (mg/dL) (70-110) mg/dL ALT 40 H (4-34) U/L Alkaline Phosphatase 157 H (38-126) U/L Assessment and Plan Plan: Assessment: 1. End-stage renal disease maintained on hemodialysis on Wednesday schedule. Currently using permacath. She has a maturing left forearm AV graft. 2. DKA status post insulin drip. 3. Hypervolemic hyponatremia. Also component of hypertonicity from hyperglycemia. Improved. 4. Hypertension with chronic kidney disease. Stable. 5. Chronic kidney disease mineral bone disease. On PhosLo. Plan: Currently seen while undergoing hemodialysis.
[2024-11-30 11:16] LABS: Glucose,Whole Blood 104 mg/dL (70-110)
--- NOTE | 2024-11-30 11:39 | P.PN ---
Subjective Progress Note Date: 11/30/24 This is a 34-year-old female patient with a known history of diabetes mellitus with frequent admissions for DKA, gastroparesis, neuropathy, hypertension, end- stage renal disease receiving hemodialysis on Wednesday schedule, anxiety/depression, chronic and ongoing tobacco dependence, history of marijuana use methamphetamines. She came into the emergency room yesterday with uncontrolled blood sugars at home. She does wear an insulin pump attached to her abdomen that had been working according to her. Chest x-ray reveals evidence of mild fluid volume overload. Count 9.9. Hemoglobin 10.5. Platelets 309. Sodium 128. Potassium 5.4. Bicarb 20. BUN 65. Creatinine 8.37. C urrent glucose 212. She is seen today in consultation in the emergency department. She is currently sitting up on a stretcher. Awake and alert in no acute distress. Maintaining good O2 saturations in the 90s on room air. She is on her insulin pump. NovoLog sliding scale. She is having some complaints of pain over her left upper extremity graft site. Seen today on 11/28/2024, patient is feeling better, she is actually undergoing dialysis during my evaluation, seems to be doing a bit better today compared to yesterday, less shortness of breath, she is on room air, not in any distress. WBC count is 8.6 hemoglobin 9.5 ABG today showed a pO2 of 87 pCO2 4 0 pH of 7.40, basic metabolic profile is normal BUN is 34 creatinine 4.08 blood sugar still running high in the 568 range at times. This afternoon blood sugar is 108 Seen today on 11/29/2024, patient is doing well, obviously she is responding well to dialysis and went through DKA protocol and her DKA has resolved, patient is doing much better today compared to the last 2 days. She is on room air, not in any distress WBC count is 8.6 hemoglobin is 9.5 blood sugar continues to fluctuate anywhere between 94 up to 333. The patient is seen today November 30, 2024 in follow-up on the selective care unit. She is currently sitting up in bed. Awake and alert in no acute distress. Denies any worsening shortness of breath, cough or congestion. Maintaining O2 saturations up to 100% on 2 L/min per nasal cannula. Afebrile. Hemodynamically stable. Currently receiving hemodialysis with a goal of 3.5 L to be removed today. White count 13.5. Hemoglobin 10.1. Platelets 264. Sodium 132. Potassium 4.5. Bicarb 31. BUN 30. Creatinine 6.16. Glucose 83. She is can continued on Levemir and NovoLog sliding scale. Objective - Vital Signs Vital signs: Vital Signs Temp 98.0 F 11/30/24 08:10 Pulse 84 11/30/24 08:10 Resp 18 11/30/24 08:10 BP 106/65 11/30/24 08:10 Pulse Ox 100 11/30/24 08:10 FiO2 Intake & Output 11/29/24 11/30/24 11/30/24 18:59 06:59 18:59 Intake Total 180 Balance 180 Weight 64 kg Intake: Oral 180 Other: Voiding Method Toilet Toilet Toilet # Voids 0 - Exam GENERAL EXAM: Alert, 34-year-old female, on 2 L nasal cannula, comfortable in no apparent distress. HEAD: Normocephalic. EYES: Normal reaction of pupils, equal size. NOSE: Clear with pink turbinates. THROAT: No erythema or exudates. NECK: No masses, no JVD. CHEST: No chest wall deformity. LUNGS: Equal air entry with faint crackles in the posterior bases. CVS: S1 and S2 normal with no audible murmur, regular rhythm. ABDOMEN: No hepatosplenomegaly, normal bowel sounds, no guarding or rigidity. SPINE: No scoliosis or deformity SKIN: No rashes CENTRAL NERVOUS SYSTEM: No focal deficits, tone is normal in all 4 extremities. EXTREMITIES: Dialysis graft to left forearm. There is no peripheral edema. No clubbing, no cyanosis. Peripheral pulses are intact. - Labs CBC & Chem 7: 11/30/24 07:19 11/30/24 07:16 Labs: Abnormal Lab Results - Last 24 Hours (Table) 11/29/24 11/29/24 11/30/24 Range/Units 16:10 20:10 07:16 WBC (3.8-10.6) k/uL RBC (3.80-5.40) m/uL Hgb (11.4-16.0) gm/dL Hct (34.0-46.0) % MCV (80.0-100.0) fL RDW (11.5-15.5) % Neutrophils # (1.3-7.7) k/uL Lymphocytes # (1.0-4.8) k/uL Sodium 132 L (137-145) mmol/L Chloride 92 L (98-107) mmol/L Carbon Dioxide 31 H (22-30) mmol/L BUN 30 H (7-17) mg/dL Creatinine 6.16 H (0.52-1.04) mg/dL POC Glucose (mg/dL) 161 H 114 H (70-110) mg/dL ALT 40 H (4-34) U/L Alkaline Phosphatase 157 H (38-126) U/L 11/30/24 Range/Units 07:19 WBC 13.5 H (3.8-10.6) k/uL RBC 3.12 L (3.80-5.40) m/uL Hgb 10.1 L (11.4-16.0) gm/dL Hct 32.0 L (34.0-46.0) % MCV 102.4 H D (80.0-100.0) fL RDW 16.6 H (11.5-15.5) % Neutrophils # 11.3 H (1.3-7.7) k/uL Lymphocytes # 0.8 L (1.0-4.8) k/uL Sodium (137-145) mmol/L Chloride (98-107) mmol/L Carbon Dioxide (22-30) mmol/L BUN (7-17) mg/dL Creatinine (0.52-1.04) mg/dL POC Glucose (mg/dL) (70-110) mg/dL ALT (4-34) U/L Alkaline Phosphatase (38-126) U/L Assessment and Plan Assessment: Hyperglycemia in a patient with a known history of diabetes mellitus utilizing a insulin pump at home End-stage renal disease requiring hemodialysis 4 times per week Left upper extremity pain near graft site, Doppler revealed patent graft Acute hypoxic respiratory failure secondary to fluid volume overload, currently on 2 L nasal cannula Diabetes mellitus, insulin-dependent Hyponatremia secondary to above Hyperkalemia secondary to above Anemia of chronic disease History of CVA/TIA History of optic neuritis Hypothyroidism History of depression Plan: The patient was seen and evaluated Labs and medications reviewed To receive dialysis today Oertli stable on 2 L nasal cannula Titrate down the FiO2 as tolerated Home once cleared by nephrology This patient was seen independently by the pulmonary nurse practitioner addressing pulmonary/critical care issues I have personally seen and examined the patient, performed the documentation and the assessment and plan as written. Number of minutes spent on the visit: 25. Dictation was produced using [employer] dictation software. Please excuse any grammatical, word or spelling errors.
--- NOTE | 2024-11-30 13:02 | P.DS ---
Providers Date of admission: 11/26/24 19:58 Expected date of discharge: 11/30/24 Attending physician: Dahiana Chan Consults: 11/26/24 19:44 Consult Physician Routine Consulting Provider: Jamal Seay Consult Reason/Comments: DKA, CKD, pulmonary edema Do you want consulting provider notified?: Yes, Notify in am 11/27/24 08:29 Consult Physician Routine Consulting Provider: Charlene Lim Consult Reason/Comments: Hemodialysis patient Do you want consulting provider notified?: Yes Primary care physician: Stated None Hospital Course: Discharge diagnoses; DKA Hyperglycemia Hyponatremia Hyperkalemia End-stage renal disease on dialysis Left upper extremity pain near graft site, Doppler revealed patent graft Diabetes mellitus, insulin-dependent Anemia of chronic disease History of CVA/TIA History of optic neuritis Hypothyroidism History of depression Hospital course; 34-year-old lady with past medical history significant for insulin-dependent diabetes mellitus, end-stage renal disease on dialysis presented to the ER because of elevated blood sugar levels. Patient stated that for the last 3 to 4 days she has been having elevated blood sugar levels, patient said that she has been taking her insulin but her blood sugars continue be elevated. Patient denies any fever or chills. There is no complaint of orthopnea or PND. There is no complaint of chest pain or shortness of breath. Patient denies any nausea, vomiting, abdominal pain. Because of these elevated blood sugar levels, patient brought to the ER Initial lab work done in the ER showed WBC 9.9, hemoglobin 10.5, platelet count 309, sodium 122, potassium 6.2, BUN 67, creatinine 7.57, blood glucose 684, bilirubin 0.9, AST 38, ALT 45, alk phos 213, troponin 0.043 lipase 170, acetone positive EKG done in the ER showed heart rate of 81 , no ST segment elevation or depression seen, no T-wave inversions seen. Chest x-ray done in the ER showed clear correlation for congestive heart failure Patient admitted to internal medicine service 11/29. Patient seen and examined. Patient is lethargic but more awake compared to yesterday. Patient is off the insulin drip. Vital signs stable 11/30. Patient seen and examined. Alert and answering question appropriately. Blood sugars are controlled, patient will be discharged home on her insulin pump. PHYSICAL EXAMINATION: GENERAL: The patient is alert, chronically ill looking HEENT: Pupils are round and equally reacting to light. EOMI. No scleral icterus. No conjunctival pallor. Normocephalic, atraumatic. No pharyngeal erythema. No thyromegaly. CARDIOVASCULAR: S1 and S2 present. No murmurs, rubs, or gallops. PULMONARY: Chest is clear to auscultation, no wheezing or crackles. ABDOMEN: Soft, nontender, nondistended, normoactive bowel sounds. No palpable organomegaly. MUSCULOSKELETAL: No joint swelling or deformity. EXTREMITIES: No cyanosis, clubbing, or pedal edema. NEUROLOGICAL: Gross neurological examination did not reveal any focal deficits. SKIN: No rashes. Dictation was produced using [employer] dictation software. please excuse any grammatical, word or spelling errors. Patient Condition at Discharge: Fair Plan - Discharge Summary Discharge Rx Participant: No New Discharge Prescriptions: Continue Magnesium Hydroxide [Milk of Magnesia Concentrate] 7,200 mg PO DAILY PRN PRN Reason: Constipation Lidocaine 4% Patch 1 patch TOPICAL DAILY@0800 Ipratropium-Albuterol Nebulize [Duoneb 0.5 mg-3 mg/3 ml Soln] 3 ml INHALATION RT-TID PRN each PRN Reason: Shortness Of Breath Or Wheezing Biotene Dry Mouth/Throat 10 ml PO BID PRN PRN Reason: DRY MOUTH/THROAT Acetaminophen [Tylenol] 650 mg PO Q4H PRN PRN Reason: Pain Or Fever > 100.5 Darbepoetin Artur [Aranesp] 40 mcg SQ MO Loratadine [Claritin] 5 mg PO DAILY tab Sertraline [Zoloft] 200 mg PO DAILY@0800 ALPRAZolam [Xanax] 0.25 mg PO BID PRN PRN Reason: Anxiety Colchicine [Colcrys] 0.3 mg PO DAILY #15 each Insulin Aspart (For Pump) [NovoLOG (For Pump)] 0.01 unit SQ-PUMP CONTINUOUS Ondansetron Odt [Zofran ODT] 4 mg PO Q8HR PRN PRN Reason: Nausea And Vomiting Atorvastatin [Lipitor] 40 mg PO HS #0 Docusate [Colace] 100 mg PO DAILY@0800 polyethylene glycoL 3350 [Miralax] 17 gm PO AC-LUNCH #527 gm Melatonin 1 mg PO HS tab Butalb/APAP/Caff 50-325-40Mg [Fioricet 50-325-40] 1 tab PO Q4HR PRN PRN Reason: Headache Aspirin 81 mg PO DAILY@0800 #30 tab Famotidine [Pepcid] 20 mg PO BID #60 tab Divalproex ER [Depakote ER] 500 mg PO BID@0800,1700 Levothyroxine Sodium [Synthroid] 175 mcg PO DAILY@0600 Metoclopramide [Reglan] 5 mg PO AC-TID PRN PRN Reason: Nausea Pantoprazole [Protonix] 40 mg PO DAILY@0600 traZODone HCL [Desyrel] 50 mg PO HS Calcium Acetate [PhosLo] 2,001 mg PO TID-W/MEALS Calcium Acetate [PhosLo] 667 mg PO DAILY PRN PRN Reason: W/SNACK hydrALAZINE HCL [Apresoline] 100 mg PO TID #90 tab NIFEdipine XL [Procardia XL] 60 mg PO BID #60 tab Labetalol [Trandate] 500 mg PO BID #150 tab Triphrocaps 1mg Cap 1 cap PO DAILY Isosorbide Mononitrate ER [Imdur] 120 mg PO DAILY tab cloNIDine HCL [Catapres] 0.3 mg PO TID tab Pregabalin [Lyrica] 200 mg PO BID 15 Days #60 cap oxyCODONE-APAP 10-325MG [Percocet 10-325 mg] 1 tab PO Q4HR PRN #18 tab PRN Reason: Pain SCALE 6-10 Discharge Medication List Docusate [Colace] 100 mg PO DAILY@0800 02/05/24 [History] Lidocaine 4% Patch 1 patch TOPICAL DAILY@0800 02/05/24 [History] Magnesium Hydroxide [Milk of Magnesia Concentrate] 7,200 mg PO DAILY PRN 02/05/24 [History] Ipratropium-Albuterol Nebulize [Duoneb 0.5 mg-3 mg/3 ml Soln] 3 ml INHALATION RT-TID PRN each 02/14/24 [Rx] polyethylene glycoL 3350 [Miralax] 17 gm PO AC-LUNCH #527 gm 02/14/24 [Rx] Acetaminophen [Tylenol] 650 mg PO Q4H PRN 02/18/24 [History] Biotene Dry Mouth/Throat 10 ml PO BID PRN 02/18/24 [History] Melatonin 1 mg PO HS tab 02/25/24 [Rx] Butalb/APAP/Caff 50-325-40Mg [Fioricet 50-325-40] 1 tab PO Q4HR PRN 03/14/24 [History] Darbepoetin Artur [Aranesp] 40 mcg SQ MO 03/14/24 [History] Loratadine [Claritin] 5 mg PO DAILY tab 03/30/24 [Rx] Aspirin 81 mg PO DAILY@0800 #30 tab 05/18/24 [Rx] Famotidine [Pepcid] 20 mg PO BID #60 tab 07/11/24 [Rx] Divalproex ER [Depakote ER] 500 mg PO BID@0800,1700 08/14/24 [History] Levothyroxine Sodium [Synthroid] 175 mcg PO DAILY@0600 08/14/24 [History] Metoclopramide [Reglan] 5 mg PO AC-TID PRN 08/14/24 [History] Pantoprazole [Protonix] 40 mg PO DAILY@0600 08/14/24 [History] Sertraline [Zoloft] 200 mg PO DAILY@0800 08/14/24 [History] traZODone HCL [Desyrel] 50 mg PO HS 08/14/24 [History] ALPRAZolam [Xanax] 0.25 mg PO BID PRN 09/04/24 [History] Calcium Acetate [PhosLo] 2,001 mg PO TID-W/MEALS 09/04/24 [History] Calcium Acetate [PhosLo] 667 mg PO DAILY PRN 09/04/24 [History] Colchicine [Colcrys] 0.3 mg PO DAILY #15 each 09/23/24 [Rx] Labetalol [Trandate] 500 mg PO BID #150 tab 09/23/24 [Rx] NIFEdipine XL [Procardia XL] 60 mg PO BID #60 tab 09/23/24 [Rx] hydrALAZINE HCL [Apresoline] 100 mg PO TID #90 tab 09/23/24 [Rx] Triphrocaps 1mg Cap 1 cap PO DAILY 10/10/24 [History] Insulin Aspart (For Pump) [NovoLOG (For Pump)] 0.01 unit SQ-PUMP CONTINUOUS 11/02/24 [History] Ondansetron Odt [Zofran ODT] 4 mg PO Q8HR PRN 11/02/24 [History] Isosorbide Mononitrate ER [Imdur] 120 mg PO DAILY tab 11/17/24 [Rx] cloNIDine HCL [Catapres] 0.3 mg PO TID tab 11/17/24 [Rx] Atorvastatin [Lipitor] 40 mg PO HS #0 11/23/24 [Rx] Pregabalin [Lyrica] 200 mg PO BID 15 Days #60 cap 11/23/24 [Rx] oxyCODONE-APAP 10-325MG [Percocet 10-325 mg] 1 tab PO Q4HR PRN #18 tab 11/23/24 [Rx] Follow up Appointment(s)/Referral(s): [facility] [NON-STAFF] - 1 Week None,Stated [Primary Care Provider] - 01/03/25 2:30 pm Discharge Disposition: HOME SELF-CARE
[2024-11-30 13:55] VITALS: BP 159/68; PULSE 70; TEMP 98.4
--- NOTE | 2024-12-01 16:09 | CDI ---
Documentation Clarification Form Date: 12/01/2024 03:42:05 PM From: Maylin Mancia Phone: Admit Date: 11/26/2024 07:58:00 PM Patient Name: Marita Perrin Visit Number: [id number] Discharge Date: 11/30/2024 02:14:00 PM ATTENTION: The Clinical Documentation Specialists (CDI) and [facility] Coding Staff appreciate your assistance in clarifying documentation. Please respond to the clarification below the line at the bottom and electronically sign. The CDI & [facility] Coding staff will review the response and follow-up if needed. Please note: Queries are made part of the Legal Health Record. If you have any questions, please contact the author of this message via ITS. Doctor/Provider: Praneeth Thomson [Acute hypoxic respiratory failure] is documented [in PN on 11/30] which may lack sufficient clinical evidence/support in the medical record. Additional clarification is requested. History/Risk Factors: pt is 34-year-old lady with past medical history significant forinsulin-dependent diabetes mellitus,end-stage renal disease on dialysispresented to the ER because ofelevated blood sugarlevels. Patient stated that for the last 3 to 4 days she has been havingelevated blood sugar levels, patient said that she has been taking her insulin but her blood sugars continue beelevated, pt is a smoker. Clinical Indicators/P note 11/28 Initial lab work done in the ER showed WBC 9.9, hemoglobin 10.5, platelet count 309, sodium 122, potassium 6.2, BUN 67, creatinine 7.57, blood glucose 684, bilirubin 0.9, AST 38, ALT 45, alk phos 213, troponin 0.043 lipase 170, acetone positive EKG done in the ER showed heart rate of 81 ,noST segmentelevationor depressionseen, no T-wave inversions seen. Chest x-raydone in the ER showed clear correlation forcongestive heart failure Patient admitted to internal medicine service On 11/27 -Maintaining good O2 saturations in the 90s on room air On 11/28-Seen today on11/28/2024, patient is feeling better, she is actually undergoing dialysisduring myevaluation, seems to be doing a bit better today compared to yesterday, lessshortness of breath, she is on room air,notin anydistress. WBC count is 8.6 hemoglobin 9.5 ABG today showed a pO2 of 87 pCO2 4 0 pH of 7.40 , basic metabolic profile is normal BUN is 34 creatinine 4.08 blood sugar still running high in the 568 range at times. On 11/29Seen today on11/29/2024, patient is doing well, obviously she is responding well todialysisand went throughDKAprotocol and herDKAhas resolved, patient is doing much better today compared to the last 2 days. She is on room air,notin anydistress On 11/30- patient is seen todayJan2024infollow-upon the selective care unit. She is currently sitting up in bed. Awake and alert inno acute distress. Denies anyworseningshortness of breath,coughorcongestion. Maintaining O2 saturations up to 100% on 2 L/min per nasal cannula On 11/30 -Acute hypoxic respiratory failuresecondary to fluidvolume overload, currently on 2 L nasal cannula Treatment: insulin drip , the pt was admitted 11/26 room air on 11/29 03:36 93% ra at 11/29 08:55 2Lnc 96% maintained on 2L 99% 100% until 11/30 11:10 99% ra last 11/30 13:52 2L nc Please clarify if [Acute hypoxic respiratory failure] is a valid diagnosis? [ x ] No, Acute hypoxic respiratory failure is ruled out [ ] Yes, Acute hypoxic respiratory failure is present as evidence by (additional clinical support): [ ] Other (please specify diagnosis) [ ] Unable to determine (Template Last Revised: April 2024) MTDD
== END 2024-11-30 14:14 | disposition home or self-care (01) | DRG 637 ==
LOC: EC 16:40 → 2SICU 19:58 → 3SCARD 11-27 08:35
PROVIDERS: ADMIT Hospitalist; ATTEND Hospitalist
PROC: 5A1D70Z Performance of Urinary Filtration, Intermittent, Less than 6 Hours Per Day (ICD-10-PCS; principal; 2024-11-27)
DX: E11.10 Type 2 diabetes mellitus with ketoacidosis without coma (principal); N18.6 End stage renal disease; I13.2 Hypertensive heart and chronic kidney disease with heart failure and with stage 5 chronic kidney disease, or end stage renal disease; D63.1 Anemia in chronic kidney disease; I50.9 Heart failure, unspecified; Z99.2 Dependence on renal dialysis; E11.22 Type 2 diabetes mellitus with diabetic chronic kidney disease; E03.9 Hypothyroidism, unspecified; F32.A Depression, unspecified; G40.909 Epilepsy, unspecified, not intractable, without status epilepticus; E87.1 Hypo-osmolality and hyponatremia; E87.5 Hyperkalemia; M79.602 Pain in left arm; Z96.41 Presence of insulin pump (external) (internal); F17.200 Nicotine dependence, unspecified, uncomplicated; K31.84 Gastroparesis; M89.8X9 Other specified disorders of bone, unspecified site; E11.43 Type 2 diabetes mellitus with diabetic autonomic (poly)neuropathy; Z86.73 Personal history of transient ischemic attack (TIA), and cerebral infarction without residual deficits; Z79.890 Hormone replacement therapy; Z79.4 Long term (current) use of insulin; Z79.899 Other long term (current) drug therapy; Z88.5 Allergy status to narcotic agent; Z88.8 Allergy status to other drugs, medicaments and biological substances; Z91.030 Bee allergy status; Z79.82 Long term (current) use of aspirin
CPT/HCPCS: 36415; 36600; 71045; 71046; 80048; 80051; 80053; 82009; 82150; 82565; 82805; 82947; 83605; 83690; 83735; 83880; 84100; 84484; 84520; 85025; 90935; 93005; 96361; 96374; 99291

== ENCOUNTER 2025-01-08 21:25 | Emergency (ER) | payer MEDICARE ==
[2025-01-08 21:31] VITALS: TEMP 97.2
--- NOTE | 2025-01-08 21:42 | ED ---
General Adult HPI - General Chief complaint: Recheck/Abnormal Lab/Rx Stated complaint: abn labs Time Seen by Provider: 01/08/25 21:27 Source: EMS Mode of arrival: EMS Limitations: no limitations - History of Present Illness Initial comments: Patient is a 34-year-old woman with history of diabetes, hypertension, end-stage renal disease, who had dialysis today and then was feeling somewhat weak and lightheaded. She stood up and felt like she was going to faint. She checked her blood pressure and it was in the neighborhood of 90/60 which is low for her. She was also having nausea and therefore called EMS. The patient is denying chest pain, dyspnea, diaphoresis, vomiting. No fever or chills. She states that her last dialysis session today went as normal. -: hour(s) Severity scale (1-10): 0 Consistency: now resolved Improves with: none Worsens with: none Associated Symptoms: nausea/vomiting Treatments Prior to Arrival: none - Related Data Home Medications Medication Instructions Recorded Confirmed Docusate [Colace] 100 mg PO DAILY@79902/05/24 12/27/24 Lidocaine 4% Patch 1 patch TOPICAL DAILY@79902/05/24 12/27/24 Magnesium Hydroxide [Milk of 7,200 mg PO DAILY PRN 02/05/24 12/27/24 Magnesia Concentrate] Acetaminophen [Tylenol] 650 mg PO Q4H PRN 02/18/24 12/27/24 Biotene Dry Mouth/Throat 10 ml PO BID PRN 02/18/24 12/27/24 Butalb/APAP/Caff 50-325-40Mg 1 tab PO Q4HR PRN 03/14/24 12/27/24 [Fioricet 50-325-40] Darbepoetin Artur [Aranesp] 40 mcg SQ MO 03/14/24 12/27/24 Levothyroxine Sodium [Synthroid] 175 mcg PO DAILY@59908/14/24 12/27/24 Metoclopramide [Reglan] 5 mg PO AC-TID PRN 08/14/24 12/27/24 Pantoprazole [Protonix] 40 mg PO DAILY@59908/14/24 12/27/24 Sertraline [Zoloft] 200 mg PO DAILY@79908/14/24 12/27/24 ALPRAZolam [Xanax] 0.25 mg PO BID PRN 09/04/24 12/27/24 Calcium Acetate [PhosLo] 2,001 mg PO TID-W/MEALS 09/04/24 12/27/24 Calcium Acetate [PhosLo] 667 mg PO DAILY PRN 09/04/24 12/27/24 Insulin Aspart (For Pump) [NovoLOG 0.01 unit SQ-PUMP CONTINUOUS 11/02/2411/08 (For Pump)] Ondansetron Odt [Zofran ODT] 4 mg PO Q8HR PRN 11/02/24 12/27/24 Folic Acid/Vit B Complex and C 0.8 mg PO DAILY 12/20/24 12/27/24 [Davina-Mayte Tablet] Previous Rx's Medication Instructions Recorded Ipratropium-Albuterol Nebulize 3 ml INHALATION RT-TID PRN each 02/14/24 [Duoneb 0.5 mg-3 mg/3 ml Soln] polyethylene glycoL 3350 [Miralax] 17 gm PO AC-LUNCH #527 gm 02/14/24 Melatonin 1 mg PO HS tab 02/25/24 Loratadine [Claritin] 5 mg PO DAILY tab 03/30/24 Aspirin 81 mg PO DAILY@0800 #30 tab 05/18/24 Famotidine [Pepcid] 20 mg PO BID #60 tab 07/11/24 Colchicine [Colcrys] 0.3 mg PO DAILY #15 each 09/23/24 Atorvastatin [Lipitor] 40 mg PO HS #0 11/23/24 oxyCODONE-APAP 10-325MG [Percocet 1 tab PO Q4HR PRN #18 tab 11/23/24 10-325 mg] hydrALAZINE HCL [Apresoline] 100 mg PO TID 30 Days #90 tab 01/01/25 traZODone HCL [Desyrel] 50 mg PO HS #20 tab 01/01/25 Divalproex ER [Depakote ER] 500 mg PO BID@0800,1700 #60 tab 01/02/25 Isosorbide Mononitrate ER [Imdur] 120 mg PO DAILY #60 tab 01/02/25 Labetalol [Trandate] 500 mg PO BID 30 Days #150 tab 01/02/25 NIFEdipine XL [Procardia XL] 60 mg PO BID 30 Days #60 tab 01/02/25 cloNIDine HCL [Catapres] 0.3 mg PO TID #90 tab 01/02/25 Gabapentin [Neurontin] 100 mg PO BID 30 Days #60 cap 01/03/25 Linagliptin [Tradjenta] 5 mg PO DAILY #30 tab 01/03/25 Allergies Allergy/AdvReac Type Severity Reaction Status Date / Time hydromorphone HCl Allergy Anaphylaxis Verified 12/27/24 15:04 [From Dilaudid] propoxyphene Allergy Rash/Hives Verified 12/27/24 15:04 [From Darvocet-N] tramadol Allergy Anaphylaxis Verified 12/27/24 15:04 ibuprofen [From Motrin] AdvReac unable to Verified 12/27/24 15:04 take due to kidney disease venom-honey bee AdvReac passes out Verified 12/27/24 15:04 [bee venom (honey bee)] Review of Systems ROS Statement: Those systems with pertinent positive or pertinent negative responses have been documented in the HPI. ROS Other: All systems not noted in ROS Statement are negative. Constitutional: Reports: weakness. Denies: fever, chills Eyes: Denies: vision change Respiratory: Denies: cough, dyspnea Cardiovascular: Reports: syncope (Patient). Denies: chest pain, palpitations, edema Gastrointestinal: Reports: nausea. Denies: abdominal pain, vomiting, diarrhea, melena, hematochezia Musculoskeletal: Denies: back pain Skin: Denies: rash Neurological: Denies: headache, weakness Past Medical History Past Medical History: Diabetes Mellitus, GERD/Reflux, Hypertension, Renal Disease, Seizure Disorder, Thyroid Disorder Additional Past Medical History / Comment(s): Neuropathy, last seizure 2020, gastroparesis, headaches with dialysis, states "fast heart rate" since giving ., receives Hemodialysis Wednesday- and Saturdays at [facility] [place] right chest hemodialysis catheter., severe HTN, hx of c-diff 2013., 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 Past Anesthesia/Blood Transfusion Reactions: Previous Problems w/ Anesthesia Additional Past Anesthesia/Blood Transfusion Reaction / Comment(s): confusion Past Psychological History: Anxiety, Depression Smoking Status: Current every day smoker Past Alcohol Use History: None Reported Past Drug Use History: Marijuana - Past Family History Father History Unknown: Yes Family Medical History: Unable to Obtain Mother History Unknown: Yes Family Medical History: No Reported History Grandfather History Unknown: Yes Family Medical History: Coronary Artery Disease (CAD) Additional Family Medical History / Comment(s): Diabetes mellitus type 2 General Exam Limitations: no limitations General appearance: alert, in no apparent distress Head exam: Present: atraumatic, normocephalic Eye exam: Present: normal appearance. Absent: scleral icterus, conjunctival injection ENT exam: Present: normal oropharynx Neck exam: Present: normal inspection, full ROM. Absent: meningismus Respiratory exam: Present: normal lung sounds bilaterally. Absent: respiratory distress, wheezes, rales, rhonchi, stridor, accessory muscle use Cardiovascular Exam: Present: regular rate, normal rhythm, systolic murmur. Absent: diastolic murmur, rubs, gallop GI/Abdominal exam: Present: soft. Absent: distended, tenderness, guarding, rebound, rigid, mass Extremities exam: Present: normal inspection, normal capillary refill. Absent: pedal edema, calf tenderness Neurological exam: Present: alert, oriented X3. Absent: motor sensory deficit Skin exam: Present: warm, dry, intact, normal color. Absent: rash Course Vital Signs 01/08/25 01/09/25 01/09/25 21:27 02:26 06:55 Temperature 97.2 F L Pulse Rate 89 83 88 Respiratory 18 18 16 Rate Blood Pressure 128/71 147/81 160/95 O2 Sat by Pulse 97 95 97 Oximetry 01/09/25 01/09/25 07:41 08:05 Temperature Pulse Rate 88 85 Respiratory 16 16 Rate Blood Pressure 183/105 186/95 O2 Sat by Pulse 99 98 Oximetry Medical Decision Making - Medical Decision Making Was pt. sent in by a medical professional or institution (, PA, CRAWLER DRAGLINE OPERATOR, urgent care, hospital, or snf...) When possible be specific @ -[No] Did you speak to anyone other than the patient for history (EMS, parent, family, police, friend...)? What history was obtained from this source @ -[No] Did you review nursing and triage notes (agree or disagree)? Why? @ -[I reviewed and agree with nursing and triage notes] Were old charts reviewed (outside hosp., previous admission, EMS record, old EKG, old radiological studies, urgent care reports/EKG's, snf records)? Report findings @ -[Yes, old charts were reviewed] Differential Diagnosis (chest pain, altered mental status, abdominal pain women, abdominal pain men, vaginal bleeding, weakness, fever, dyspnea, syncope, headache, dizziness, GI bleed, back pain, seizure, CVA, palpatations, mental health, musculoskeletal)? @ -[ EKG interpreted by me (3pts min.). @ -[I interpreted as above] X-rays interpreted by me (1pt min.). @ -[None done] CT interpreted by me (1pt min.). @ -[None done] U/S interpreted by me (1pt. min.). @ -[None done] What testing was considered but not performed or refused? (CT, X-rays, U/S, labs)? Why? @ -[None] What meds were considered but not given or refused? Why? @ -[None] Did you discuss the management of the patient with other professionals (professionals i.e. , PA, CRAWLER DRAGLINE OPERATOR, lab, RT, psych nurse, nursing home social worker, linux administrator, teacher, uniform patrol police officer, high risk case manager)? Give summary @ -[No] Was smoking cessation discussed for >3mins.? @ -[No] Was critical care preformed (if so, how long)? @ -[No] Were there social determinants of health that impacted care today? How? (Homelessness, low income, unemployed, alcoholism, drug addiction, transportation, low edu. Level, literacy, decrease access to med. care, half-way, rehab)? @ -[No] Was there de-escalation of care discussed even if they declined (Discuss DNR or withdrawal of care, Hospice)? DNR status @ -[No] What co-morbidities impacted this encounter? (DM, HTN, Smoking, COPD, CAD, Cancer, CVA, ARF, Chemo, Hep., AIDS, mental health diagnosis, sleep apnea, morbid obesity)? @ -[Diabetes, hypertension, end-stage renal disease Was patient admitted / discharged? Hospital course, mention meds given and route, prescriptions, significant lab abnormalities, going to OR and other per tinent info. @ -[Patient is a 34-year-old woman with diabetes and multiple comorbidities who has hyperglycemia. We did administer insulin which started to have improvement and the patient is due for hemodialysis which should further improve the patient's glucose levels. Stable for discharge to go to dialysis. Discussed appropriate further care and follow-up as well as return parameters. Undiagnosed new problem with uncertain prognosis? @ -[No] Drug Therapy requiring intensive monitoring for toxicity (Heparin, Nitro, Insulin, Cardizem)? @ -[No] Were any procedures done? @ -[No] Diagnosis/symptom? @ -[Acute hyperglycemia End-stage renal disease on hemodialysis Chronic hypertension Acute, or Chronic, or Acute on Chronic? @ -[Acute hyperglycemia Uncomplicated (without systemic symptoms) or Complicated (systemic symptoms)? @ -[Uncomplicated Side effects of treatment? @ -[No] Exacerbation, Progression, or Severe Exacerbation? @ -[No] Poses a threat to life or bodily function? How? (Chest pain, USA, CA, pneumonia, PE, COPD, DKA, ARF, appy, cholecystitis, CVA, Diverticulitis, Homicidal, Suicidal, threat to staff... and all critical care pts) @ -[There is threat but mainly over the long-term with poor glucose control this was discussed with patient All treatments are based on ideal body weight as in ED triage - Lab Data Result diagrams: 01/08/25 22:40 01/08/25 21:53 Lab Results 01/08/25 01/08/25 01/08/25 Range/Units 21:53 21:53 21:53 WBC (3.8-10.6) k/uL RBC (3.80-5.40) m/uL Hgb (11.4-16.0) gm/dL Hct (34.0-46.0) % MCV (80.0-100.0) fL MCH (25.0-35.0) pg MCHC (31.0-37.0) g/dL RDW (11.5-15.5) % Plt Count (150-450) k/uL MPV Neutrophils % % Lymphocytes % % Monocytes % % Eosinophils % % Basophils % % Neutrophils # (1.3-7.7) k/uL Lymphocytes # (1.0-4.8) k/uL Monocytes # (0-1.0) k/uL Eosinophils # (0-0.7) k/uL Basophils # (0-0.2) k/uL Hypochromasia Anisocytosis Macrocytosis Sodium 130 L (137-145) mmol/L Potassium 4.5 (3.5-5.1) mmol/L Chloride 86 L (98-107) mmol/L Carbon Dioxide 28 (22-30) mmol/L Anion Gap 16 mmol/L BUN 27 H (7-17) mg/dL Creatinine 4.35 H (0.52-1.04) mg/dL Est GFR (CKD-EPI)AfAm 14 (>60 ml/min/1.73 sqM) Est GFR (CKD-EPI)NonAf 13 (>60 ml/min/1.73 sqM) Glucose 505 H* (74-99) mg/dL POC Glucose (mg/dL) (70-110) mg/dL POC Glu Deskidding Machine Operator ID Plasma Lactic Acid Christopher 1.1 (0.7-2.0) mmol/L Calcium 8.2 L (8.4-10.2) mg/dL Magnesium 1.8 (1.6-2.3) mg/dL Total Bilirubin 0.8 (0.2-1.3) mg/dL AST 34 (14-36) U/L ALT 37 H (4-34) U/L Alkaline Phosphatase 182 H (38-126) U/L Troponin I 0.012 (0.000-0.034) ng/mL Total Protein 6.4 (6.3-8.2) g/dL Albumin 3.8 (3.5-5.0) g/dL 01/08/25 01/09/25 01/09/25 Range/Units 22:40 00:27 01:13 WBC 14.3 H (3.8-10.6) k/uL RBC 2.92 L (3.80-5.40) m/uL Hgb 9.0 L (11.4-16.0) gm/dL Hct 28.8 L (34.0-46.0) % MCV 98.6 (80.0-100.0) fL MCH 30.8 (25.0-35.0) pg MCHC 31.2 (31.0-37.0) g/dL RDW 17.2 H (11.5-15.5) % Plt Count 302 (150-450) k/uL MPV 8.0 Neutrophils % 90 % Lymphocytes % 4 % Monocytes % 3 % Eosinophils % 2 % Basophils % 0 % Neutrophils # 12.9 H (1.3-7.7) k/uL Lymphocytes # 0.6 L (1.0-4.8) k/uL Monocytes # 0.4 (0-1.0) k/uL Eosinophils # 0.3 (0-0.7) k/uL Basophils # 0.0 (0-0.2) k/uL Hypochromasia Slight Anisocytosis Slight Macrocytosis Slight Sodium (137-145) mmol/L Potassium (3.5-5.1) mmol/L Chloride (98-107) mmol/L Carbon Dioxide (22-30) mmol/L Anion Gap mmol/L BUN (7-17) mg/dL Creatinine (0.52-1.04) mg/dL Est GFR (CKD-EPI)AfAm (>60 ml/min/1.73 sqM) Est GFR (CKD-EPI)NonAf (>60 ml/min/1.73 sqM) Glucose (74-99) mg/dL POC Glucose (mg/dL) 566 H* 560 H* (70-110) mg/dL POC Glu Deskidding Machine Operator ID Duane Bojorquezshua Toniayessica Meneses Plasma Lactic Acid Christopher (0.7-2.0) mmol/L Calcium (8.4-10.2) mg/dL Magnesium (1.6-2.3) mg/dL Total Bilirubin (0.2-1.3) mg/dL AST (14-36) U/L ALT (4-34) U/L Alkaline Phosphatase (38-126) U/L Troponin I (0.000-0.034) ng/mL Total Protein (6.3-8.2) g/dL Albumin (3.5-5.0) g/dL 01/09/25 01/09/25 01/09/25 Range/Units 02:25 03:35 06:06 WBC (3.8-10.6) k/uL RBC (3.80-5.40) m/uL Hgb (11.4-16.0) gm/dL Hct (34.0-46.0) % MCV (80.0-100.0) fL MCH (25.0-35.0) pg MCHC (31.0-37.0) g/dL RDW (11.5-15.5) % Plt Count (150-450) k/uL MPV Neutrophils % % Lymphocytes % % Monocytes % % Eosinophils % % Basophils % % Neutrophils # (1.3-7.7) k/uL Lymphocytes # (1.0-4.8) k/uL Monocytes # (0-1.0) k/uL Eosinophils # (0-0.7) k/uL Basophils # (0-0.2) k/uL Hypochromasia Anisocytosis Macrocytosis Sodium (137-145) mmol/L Potassium (3.5-5.1) mmol/L Chloride (98-107) mmol/L Carbon Dioxide (22-30) mmol/L Anion Gap mmol/L BUN (7-17) mg/dL Creatinine (0.52-1.04) mg/dL Est GFR (CKD-EPI)AfAm (>60 ml/min/1.73 sqM) Est GFR (CKD-EPI)NonAf (>60 ml/min/1.73 sqM) Glucose (74-99) mg/dL POC Glucose (mg/dL) 496 H 533 H* 478 H (70-110) mg/dL POC Glu Deskidding Machine Operator ID Duane Cherry Achatz Zaira Achatz Zaira Plasma Lactic Acid Christopher (0.7-2.0) mmol/L Calcium (8.4-10.2) mg/dL Magnesium (1.6-2.3) mg/dL Total Bilirubin (0.2-1.3) mg/dL AST (14-36) U/L ALT (4-34) U/L Alkaline Phosphatase (38-126) U/L Troponin I (0.000-0.034) ng/mL Total Protein (6.3-8.2) g/dL Albumin (3.5-5.0) g/dL 01/09/25 01/09/25 Range/Units 06:54 07:43 WBC (3.8-10.6) k/uL RBC (3.80-5.40) m/uL Hgb (11.4-16.0) gm/dL Hct (34.0-46.0) % MCV (80.0-100.0) fL MCH (25.0-35.0) pg MCHC (31.0-37.0) g/dL RDW (11.5-15.5) % Plt Count (150-450) k/uL MPV Neutrophils % % Lymphocytes % % Monocytes % % Eosinophils % % Basophils % % Neutrophils # (1.3-7.7) k/uL Lymphocytes # (1.0-4.8) k/uL Monocytes # (0-1.0) k/uL Eosinophils # (0-0.7) k/uL Basophils # (0-0.2) k/uL Hypochromasia Anisocytosis Macrocytosis Sodium (137-145) mmol/L Potassium (3.5-5.1) mmol/L Chloride (98-107) mmol/L Carbon Dioxide (22-30) mmol/L Anion Gap mmol/L BUN (7-17) mg/dL Creatinine (0.52-1.04) mg/dL Est GFR (CKD-EPI)AfAm (>60 ml/min/1.73 sqM) Est GFR (CKD-EPI)NonAf (>60 ml/min/1.73 sqM) Glucose (74-99) mg/dL POC Glucose (mg/dL) 383 H 421 H (70-110) mg/dL POC Glu Deskidding Machine Operator ID Duane Kaplan Plasma Lactic Acid Christopher (0.7-2.0) mmol/L Calcium (8.4-10.2) mg/dL Magnesium (1.6-2.3) mg/dL Total Bilirubin (0.2-1.3) mg/dL AST (14-36) U/L ALT (4-34) U/L Alkaline Phosphatase (38-126) U/L Troponin I (0.000-0.034) ng/mL Total Protein (6.3-8.2) g/dL Albumin (3.5-5.0) g/dL Disposition Clinical Impression: Hyperglycemia Disposition: HOME SELF-CARE Condition: Good Instructions (If sedation given, give patient instructions): Diabetic Hyperglycemia (ED) Is patient prescribed a controlled substance at d/c from ED?: No Referrals: None,Stated [Primary Care Provider] - 1-2 days
[2025-01-08 22:14] LABS: ALT 37 U/L (4-34); AST 34 U/L (14-36); African American GFR (CKD) 14 (>60 ml/min/1.73 sqM); Albumin 3.8 g/dL (3.5-5.0); Alkaline Phosphatase 182 U/L (38-126); Anion Gap 16 mmol/L; Blood Urea Nitrogen 27 mg/dL (7-17); Calcium 8.2 mg/dL (8.4-10.2); Carbon Dioxide 28 mmol/L (22-30); Chloride 86 mmol/L (98-107); Magnesium 1.8 mg/dL (1.6-2.3); Non-African American GFR(CKD) 13 (>60 ml/min/1.73 sqM); Potassium 4.5 mmol/L (3.5-5.1); Sodium 130 mmol/L (137-145); Total Bilirubin 0.8 mg/dL (0.2-1.3); Total Protein 6.4 g/dL (6.3-8.2)
[2025-01-08 22:16] LABS: Glucose 505 mg/dL (74-99)
[2025-01-08 22:43] LABS: Anisocytosis Slight; Basophils % (A) 0 %; Eosinophils # (A) 0.3 k/uL (0-0.7); Eosinophils % (A) 2 %; HCT 28.8 % (34.0-46.0); Hypochromasia Slight; Lymphocytes # (A) 0.6 k/uL (1.0-4.8); Lymphocytes % (A) 4 %; MCH 30.8 pg (25.0-35.0); MCHC 31.2 g/dL (31.0-37.0); MCV 98.6 fL (80.0-100.0); Macrocytosis Slight; Monocytes # (A) 0.4 k/uL (0-1.0); Monocytes % (A) 3 %; Neutrophils # (A) 12.9 k/uL (1.3-7.7); Neutrophils % (A) 90 %; Platelet Count 302 k/uL (150-450); RBC 2.92 m/uL (3.80-5.40); RDW 17.2 % (11.5-15.5); WBC 14.3 k/uL (3.8-10.6)
[2025-01-08] MEDS: INSULIN REGULAR 100 UNIT/ML VIAL (IV) SQ STA (23:16)
[2025-01-09] MEDS: HYDROcodone/APAP 5-325MG 1 EACH TAB PO STA (01:20)
[2025-01-09 02:26] LABS: Glucose,Whole Blood 496 mg/dL (70-110)
[2025-01-09 03:38] LABS: Glucose,Whole Blood 533 mg/dL (70-110)
[2025-01-09] MEDS: INSULIN REGULAR 100 UNIT/ML VIAL (IV) SQ STA (04:28)
[2025-01-09 06:07] LABS: Glucose,Whole Blood 478 mg/dL (70-110)
[2025-01-09 06:56] VITALS: RESP 16
[2025-01-09 06:56] LABS: Glucose,Whole Blood 383 mg/dL (70-110)
[2025-01-09 07:45] LABS: Glucose,Whole Blood 421 mg/dL (70-110)
[2025-01-09] MEDS: hydrALAZINE HCL 50 MG TAB PO STA (07:54)
[2025-01-09] MEDS: cloNIDine HCL 0.1 MG TAB PO STA (07:54)
[2025-01-09 08:07] VITALS: BP 186/95; PULSE 85
[2025-01-09 09:36] LABS: Glucose,Whole Blood 566 mg/dL (70-110)
[2025-01-09 09:36] LABS: Glucose,Whole Blood 560 mg/dL (70-110)
== END 2025-01-09 08:19 | disposition home or self-care (01) ==
LOC: EC 21:25
DX: E11.65 Type 2 diabetes mellitus with hyperglycemia (principal); I10 Essential (primary) hypertension; E11.22 Type 2 diabetes mellitus with diabetic chronic kidney disease; F17.200 Nicotine dependence, unspecified, uncomplicated; N18.6 End stage renal disease
CPT/HCPCS: 36415; 80053; 83605; 83735; 84484; 85025; 93005; 99284

== ENCOUNTER 2025-01-21 20:15 | Inpatient (IN) | payer MEDICARE ==
[2025-01-21] MEDS: hydrALAZINE HCL 20 MG/ML 1 ML VIAL IVP STA (20:58)
[2025-01-21] MEDS: NITROGLYCERIN-D5W PMX 50 MG in DEXTROSE/WATER 1 250ML.BAG IV ONE (21:35)
[2025-01-21 22:18] LABS: Anisocytosis Slight; Basophils % (A) 0 %; Eosinophils # (A) 0.2 k/uL (0-0.7); Eosinophils % (A) 3 %; HCT 31.4 % (34.0-46.0); HGB 9.7 gm/dL (11.4-16.0); Hypochromasia Slight; Lymphocytes # (A) 1.1 k/uL (1.0-4.8); Lymphocytes % (A) 13 %; MCH 30.9 pg (25.0-35.0); MCHC 30.8 g/dL (31.0-37.0); MCV 100.5 fL (80.0-100.0); Macrocytosis Moderate; Mean Platelet Volume 8.6; Monocytes # (A) 0.1 k/uL (0-1.0); Monocytes % (A) 2 %; Neutrophils # (A) 7.3 k/uL (1.3-7.7); Neutrophils % (A) 81 %; Platelet Count 379 k/uL (150-450); RBC 3.12 m/uL (3.80-5.40); RDW 18.2 % (11.5-15.5); WBC 9.1 k/uL (3.8-10.6)
[2025-01-21 22:45] LABS: ALT 50 U/L (4-34); AST 38 U/L (14-36); African American GFR (CKD) 12 (>60 ml/min/1.73 sqM); Albumin 4.1 g/dL (3.5-5.0); Alkaline Phosphatase 147 U/L (38-126); Anion Gap 16 mmol/L; Blood Urea Nitrogen 39 mg/dL (7-17); Calcium 8.9 mg/dL (8.4-10.2); Carbon Dioxide 28 mmol/L (22-30); Chloride 85 mmol/L (98-107); Glucose 428 mg/dL (74-99); Non-African American GFR(CKD) 10 (>60 ml/min/1.73 sqM); Potassium 4.7 mmol/L (3.5-5.1); Sodium 129 mmol/L (137-145); Total Protein 6.6 g/dL (6.3-8.2)
[2025-01-21] MEDS: cloNIDine HCL 0.1 MG TAB PO STA (22:56)
[2025-01-21 22:58] LABS: INR 1.2 (<1.2); Partial Thromboplastin Time 23.4 sec (22.0-30.0); Prothrombin Time 12.5 sec (10.0-12.5)
--- NOTE | 2025-01-21 23:10 | XR ---
EXAM: XR Chest, 2 Views CLINICAL HISTORY: ITS.REASON XR Reason: difficulty breathing TECHNIQUE: Frontal and lateral views of the chest. COMPARISON: Chest x-ray of 12/27/2014. FINDINGS: Lungs: There is findings suggestive of pulmonary edema particularly the mid lower lung zones. There is prominence of central pulmonary vasculature. Pleural space: Unremarkable. No pneumothorax. Heart: There is cardiomegaly. Mediastinum: Unremarkable. Normal mediastinal contour. Bones/joints: Unremarkable. No acute fracture. Tubes, lines and devices: Right submitting catheter is noted in place with tip at the distal superior vena cava. Other findings: There is hypoaeration. IMPRESSION: 1. Consider cardiomegaly and incipient congestive heart failure. 2. Possible pulmonary edema. 3. Multifocal pneumonia cannot be excluded however and clinical correlation is advised.
[2025-01-21 23:11] LABS: NT-Pro-B-Type Natriuretic Pept 113000 pg/mL
[2025-01-21] MEDS: MORPHINE SULFATE 4 MG/ML SYRINGE IV STA (23:11)
[2025-01-21 23:37] LABS: Influenza A Not Detected (Not Detectd); Influenza B Not Detected (Not Detectd); RSV Not Detected (Not Detectd)
--- NOTE | 2025-01-22 01:11 | ED ---
General Adult HPI - General Source: EMS Mode of arrival: EMS Limitations: no limitations - History of Present Illness -: hour(s) Location: chest Quality: other (Tightness) Consistency: constant Improves with: other (Oxygen) Worsens with: none Associated Symptoms: chest pain, cough Treatments Prior to Arrival: other (Oxygen) <Kristopher Burgos - Last Filed: 01/22/25 01:08> - General Source: EMS, RN notes reviewed, old records reviewed Mode of arrival: EMS Limitations: no limitations - History of Present Illness -: hour(s) Consistency: constant Worsens with: none Associated Symptoms: chest pain, cough, shortness of breath, weakness Treatments Prior to Arrival: none <Polo Edward - Last Filed: 01/22/25 22:57> - General Chief complaint: Upper Respiratory Infection Stated complaint: SOB Time Seen by Provider: 01/21/25 20:21 - History of Present Illness Initial comments: This patient is a 34-year-old woman with history of diabetes, hypertension, end- stage renal disease on hemodialysis, who presents with complaint that she is developing shortness of breath. She states it has been getting worse over the past hour to 2. She states that she is compliant with her dialysis and had treatment yesterday. She has not noted fever or chills. Cough with a little bit of clear sputum. No leg swelling. (Kristopher Burgos) 34 female to ER for evaluation of hypertension and end-stage renal disease on dialysis coming in for severe shortness of breath with symptoms significant here in the emergency department, patient initially given blood pressure control with nitroglycerin drip as well as BiPAP (Polo Edward) - Related Data Home Medications Medication Instructions Recorded Confirmed Docusate [Colace] 100 mg PO DAILY@0800 02/05/24 01/22/25 Lidocaine 4% Patch 1 patch TOPICAL DAILY@79902/05/24 01/22/25 Magnesium Hydroxide [Milk of 7,200 mg PO DAILY PRN 02/05/24 01/22/25 Magnesia Concentrate] Acetaminophen [Tylenol] 650 mg PO Q4H PRN 02/18/24 01/22/25 Biotene Dry Mouth/Throat 10 ml PO BID PRN 02/18/24 01/22/25 Butalb/APAP/Caff 50-325-40Mg 1 tab PO Q4HR PRN 03/14/24 01/22/25 [Fioricet 50-325-40] Darbepoetin Artur [Aranesp] 40 mcg SQ MO 03/14/24 01/22/25 Levothyroxine Sodium [Synthroid] 175 mcg PO DAILY@59908/14/24 01/22/25 Metoclopramide [Reglan] 5 mg PO AC-TID PRN 08/14/24 01/22/25 Pantoprazole [Protonix] 40 mg PO DAILY@59908/14/24 01/22/25 Sertraline [Zoloft] 200 mg PO DAILY@79908/14/24 01/22/25 ALPRAZolam [Xanax] 0.25 mg PO BID PRN 09/04/24 01/22/25 Calcium Acetate [PhosLo] 2,001 mg PO TID-W/MEALS 09/04/24 01/22/25 Calcium Acetate [PhosLo] 667 mg PO DAILY PRN 09/04/24 01/22/25 Ondansetron Odt [Zofran ODT] 4 mg PO Q8HR PRN 11/02/24 01/22/25 Folic Acid/Vit B Complex and C 0.8 mg PO DAILY 12/20/24 01/22/25 [Davina-Mayte Tablet] Insulin Lispro [humaLOG Kwikpen] 8 unit SQ AC-TID 01/22/25 01/22/25 Insulin Lispro [humaLOG Kwikpen] See Protocol SQ AC-TID 01/22/25 01/22/25 cloNIDine HCL [Catapres] 0.3 mg PO TID 01/22/25 01/22/25 Previous Rx's Medication Instructions Recorded Ipratropium-Albuterol Nebulize 3 ml INHALATION RT-TID PRN each 02/14/24 [Duoneb 0.5 mg-3 mg/3 ml Soln] polyethylene glycoL 3350 [Miralax] 17 gm PO AC-LUNCH #527 gm 02/14/24 Melatonin 1 mg PO HS tab 02/25/24 Loratadine [Claritin] 5 mg PO DAILY tab 03/30/24 Aspirin 81 mg PO DAILY@0800 #30 tab 05/18/24 Famotidine [Pepcid] 20 mg PO BID #60 tab 07/11/24 Colchicine [Colcrys] 0.3 mg PO DAILY #15 each 09/23/24 Atorvastatin [Lipitor] 40 mg PO HS #0 11/23/24 oxyCODONE-APAP 10-325MG [Percocet 1 tab PO Q4HR PRN #18 tab 11/23/24 10-325 mg] hydrALAZINE HCL [Apresoline] 100 mg PO TID 30 Days #90 tab 01/01/25 traZODone HCL [Desyrel] 50 mg PO HS #20 tab 01/01/25 Divalproex ER [Depakote ER] 500 mg PO BID@0800,1700 #60 tab 01/02/25 Isosorbide Mononitrate ER [Imdur] 120 mg PO DAILY #60 tab 01/02/25 Labetalol [Trandate] 500 mg PO BID 30 Days #150 tab 01/02/25 NIFEdipine XL [Procardia XL] 60 mg PO BID 30 Days #60 tab 01/02/25 Gabapentin [Neurontin] 100 mg PO BID 30 Days #60 cap 01/03/25 Linagliptin [Tradjenta] 5 mg PO DAILY #30 tab 01/03/25 Allergies Allergy/AdvReac Type Severity Reaction Status Date / Time hydromorphone HCl Allergy Anaphylaxis Verified 12/27/24 15:04 [From Dilaudid] propoxyphene Allergy Rash/Hives Verified 12/27/24 15:04 [From Darvocet-N] tramadol Allergy Anaphylaxis Verified 12/27/24 15:04 ibuprofen [From Motrin] AdvReac unable to Verified 12/27/24 15:04 take due to kidney disease venom-honey bee AdvReac passes out Verified 12/27/24 15:04 [bee venom (honey bee)] Review of Systems ROS Other: All systems not noted in ROS Statement are negative. Constitutional: Denies: fever, chills, weakness Respiratory: Reports: cough, dyspnea. Denies: hemoptysis Cardiovascular: Reports: chest pain, orthopnea. Denies: palpitations, edema, syncope Gastrointestinal: Denies: abdominal pain, nausea, vomiting, diarrhea Genitourinary: Denies: dysuria Musculoskeletal: Denies: back pain Skin: Denies: rash Neurological: Denies: headache, weakness, numbness <Trachy,Kristopher - Last Filed: 01/22/25 01:08> ROS Other: All systems not noted in ROS Statement are negative. <Polo Edward - Last Filed: 01/22/25 22:57> ROS Statement: Those systems with pertinent positive or pertinent negative responses have been documented in the HPI. Past Medical History Past Medical History: Diabetes Mellitus, GERD/Reflux, Hypertension, Renal Disease, Seizure Disorder, Thyroid Disorder Additional Past Medical History / Comment(s): Neuropathy, last seizure 2020, gastroparesis, headaches with dialysis, states "fast heart rate" since giving ., receives Hemodialysis Wednesday- and Saturdays at 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 Past Anesthesia/Blood Transfusion Reactions: Previous Problems w/ Anesthesia Additional Past Anesthesia/Blood Transfusion Reaction / Comment(s): confusion Past Psychological History: Anxiety, Depression Smoking Status: Current every day smoker Past Alcohol Use History: None Reported Past Drug Use History: Marijuana - Past Family History Father History Unknown: Yes Family Medical History: Unable to Obtain Mother History Unknown: Yes Family Medical History: No Reported History Grandfather History Unknown: Yes Family Medical History: Coronary Artery Disease (CAD) Additional Family Medical History / Comment(s): Diabetes mellitus type 2 <Kristopher Burgos - Last Filed: 01/22/25 01:08> General Exam Limitations: no limitations General appearance: alert, in distress Head exam: Present: atraumatic, normocephalic Eye exam: Present: normal appearance. Absent: scleral icterus, conjunctival injection ENT exam: Present: normal oropharynx Neck exam: Present: normal inspection Respiratory exam: Present: respiratory distress, rales. Absent: rhonchi, stridor, accessory muscle use Cardiovascular Exam: Present: regular rate, normal rhythm, gallop. Absent: systolic murmur, diastolic murmur, rubs GI/Abdominal exam: Present: soft. Absent: distended, tenderness, guarding, rebound, rigid, mass Extremities exam: Present: normal inspection, normal capillary refill. Absent: pedal edema, calf tenderness Back exam: Present: normal inspection. Absent: CVA tenderness (R), CVA tenderness (L) Neurological exam: Present: alert Skin exam: Present: warm, dry, intact, normal color. Absent: rash <Kristopher Burgos - Last Filed: 01/22/25 01:08> Limitations: no limitations General appearance: alert, anxious, in distress Head exam: Present: atraumatic, normocephalic, normal inspection Eye exam: Present: normal appearance, PERRL, EOMI. Absent: scleral icterus, conjunctival injection, periorbital swelling ENT exam: Present: normal exam, mucous membranes moist Neck exam: Present: normal inspection. Absent: tenderness, meningismus, lymphadenopathy Respiratory exam: Present: normal lung sounds bilaterally, respiratory distress, rales, decreased breath sounds, prolonged expiratory. Absent: wheezes, rhonchi, stridor Cardiovascular Exam: Present: regular rate, normal rhythm, normal heart sounds. Absent: systolic murmur, diastolic murmur, rubs, gallop, clicks GI/Abdominal exam: Present: soft, normal bowel sounds. Absent: distended, tenderness, guarding, rebound, rigid Extremities exam: Present: normal inspection, full ROM, normal capillary refill. Absent: tenderness, pedal edema, joint swelling, calf tenderness Back exam: Present: normal inspection Neurological exam: Present: alert, oriented X3, CN II-XII intact Psychiatric exam: Present: normal affect, normal mood Skin exam: Present: warm, dry, intact, normal color. Absent: rash <Polo Edward - Last Filed: 01/22/25 22:57> Course <Polo Edward - Last Filed: 01/22/25 22:57> Vital Signs 01/21/25 01/21/25 01/21/25 20:21 21:01 22:23 Temperature 97.2 F L Pulse Rate 87 92 84 Pulse Rate [ Web Methods Developer ] Respiratory 24 24 25 H Rate Blood Pressure 231/131 225/130 201/105 Blood Pressure [Right Arm] O2 Sat by Pulse 100 100 Oximetry Fraction of Inspired Oxygen (FIO2) 01/21/25 01/21/25 01/21/25 22:35 23:18 23:27 Temperature Pulse Rate 87 87 86 Pulse Rate [ Web Methods Developer ] Respiratory 24 20 18 Rate Blood Pressure 199/108 199/116 196/107 Blood Pressure [Right Arm] O2 Sat by Pulse 100 100 100 Oximetry Fraction of Inspired Oxygen (FIO2) 01/21/25 01/21/25 01/22/25 23:33 23:59 00:28 Temperature Pulse Rate 88 84 Pulse Rate [ Web Methods Developer ] Respiratory 20 20 Rate Blood Pressure 192/109 189/103 Blood Pressure [Right Arm] O2 Sat by Pulse 100 100 Oximetry Fraction of 40 Inspired Oxygen (FIO2) 01/22/25 01/22/25 01/22/25 00:29 00:36 02:00 Temperature Pulse Rate 81 79 Pulse Rate [ Web Methods Developer ] Respiratory 36 H 26 H Rate Blood Pressure 193/107 179/102 Blood Pressure [Right Arm] O2 Sat by Pulse 100 100 Oximetry Fraction of 40 Inspired Oxygen (FIO2) 01/22/25 01/22/25 01/22/25 02:20 03:44 05:00 Temperature Pulse Rate 80 78 81 Pulse Rate [ Web Methods Developer ] Respiratory 24 18 18 Rate Blood Pressure 177/98 167/95 167/99 Blood Pressure [Right Arm] O2 Sat by Pulse 100 100 100 Oximetry Fraction of Inspired Oxygen (FIO2) 01/22/25 01/22/25 01/22/25 06:31 08:04 08:42 Temperature 98.7 F Pulse Rate 71 83 Pulse Rate [ Web Methods Developer ] Respiratory 18 16 Rate Blood Pressure 159/90 168/90 Blood Pressure [Right Arm] O2 Sat by Pulse 100 100 95 Oximetry Fraction of 40 Inspired Oxygen (FIO2) 01/22/25 01/22/25 01/22/25 13:31 15:33 15:50 Temperature 98 F 98 F Pulse Rate 81 78 Pulse Rate [ 81 Web Methods Developer ] Respiratory 16 16 15 Rate Blood Pressure 211/104 190/99 Blood Pressure 213/100 [Right Arm] O2 Sat by Pulse 97 96 Oximetry Fraction of Inspired Oxygen (FIO2) 01/22/25 17:49 Temperature 98 F Pulse Rate 81 Pulse Rate [ Web Methods Developer ] Respiratory 18 Rate Blood Pressure 183/96 Blood Pressure [Right Arm] O2 Sat by Pulse 97 Oximetry Fraction of Inspired Oxygen (FIO2) - Reevaluation(s) Reevaluation #1: Medical records reviewed Multiple inpatient evaluations for missed dialysis for fluid overload and pulmonary edema with hypertensive emergency (Polo Edward) Reevaluation #2: Patient dramatically improved after blood pressure control and BiPAP trial, patient will be taken off BiPAP after 2 hours (Polo Edward) Reevaluation #3: Informed of results questions answered (Polo Edward) Reevaluation #4: Was pt. sent in by a medical professional or institution ([facility], MOBILE LAB TECHNICIAN, urgent care, hospital, or [facility]...) When possible be specific @ -no Did you speak to anyone other than the patient for history (EMS, parent, family, police, friend...)? What history was obtained from this source @ -no Did you review nursing and triage notes (agree or disagree)? Why? @ -agree Are old charts reviewed (outside hosp., previous admission, EMS record, old EKG, old radiological studies, urgent care reports/EKG's, [facility] records)? Report findings @ -yes Differential Diagnosis (chest pain, altered mental status, abdominal pain women, abdominal pain men, vaginal bleeding, weakness, fever, dyspnea, syncope, headache, dizziness, GI bleed, back pain, seizure, CVA, palpatations, mental health, musculoskeletal)? @ -prior EKG interpreted by me (3pts min.). @ -yes X-rays interpreted by me (1pt min.). @ -yes positive for pulmonary edema CT interpreted by me (1pt min.). @ -no U/S interpreted by me (1pt. min.). @ -no What testing was considered but not performed or refused? (CT, X-rays, U/S, labs)? Why? @ -none What meds were considered but not given or refused? Why? @ -none Did you discuss the management of the patient with other professionals (professionals i.e. [facility], MOBILE LAB TECHNICIAN, lab, RT, psych nurse, long term care social worker, locomotive supervisor, teacher, tank officer, case specialist)? Give summary @ -no Was smoking cessation discussed for >3mins.? @ -no Was critical care preformed (if so, how long)? @ -no Were there social determinants of health that impacted care today? How? (Homelessness, low income, unemployed, alcoholism, drug addiction, transportation, low edu. Level, literacy, decrease access to med. care, intermediate, rehab)? @ -none Was there de-escalation of care discussed even if they declined (Discuss DNR or withdrawal of care, Hospice)? DNR status @ -no What co-morbidities impacted this encounter? (DM, HTN, Smoking, COPD, CAD, Cancer, CVA, ARF, Chemo, Hep., AIDS, mental health diagnosis, sleep apnea, morbid obesity)? @ -none Was patient admitted / discharged? Hospital course, mention meds given and route, prescriptions, significant lab abnormalities, going to OR and other pertinent info. @ -34 female well-known to this emergency department and hospital coming in for hypertensive emergency with CHF and pulmonary edema, fluid overload from missed dialysis and will admit for dialysis here in the hospital Admitted Undiagnosed new problem with uncertain prognosis? @ -no Drug Therapy requiring intensive monitoring for toxicity (Heparin, Nitro, Insulin, Cardizem)? @ -no Were any procedures done? @ -no Diagnosis/symptom? @ -Hypertensive emergency, pulmonary edema, respiratory failure on BiPAP Acute, or Chronic, or Acute on Chronic? @ -Acute Uncomplicated (without systemic symptoms) or Complicated (systemic symptoms)? @ -Complicated Side effects of treatment? @ -no Exacerbation, Progression, or Severe Exacerbation? @ -exacerbation Poses a threat to life or bodily function? How? (Chest pain, [place], [place], pneumonia, PE, COPD, DKA, ARF, appy, cholecystitis, CVA, Diverticulitis, Homicidal, Suicidal, threat to staff... and all critical care pts) @ -yes with respiratory failure on dialysis (Polo Edward) Reevaluation #5: Differential Dyspnea: Coronary syndrome, arrhythmia, tamponade, asthma, COPD, pulmonary embolism, pneumonia, pneumothorax, pulmonary effusion, anaphylaxis, diabetic ketoacidosis, flailed chest, pulmonary contusion, diaphragmatic rupture, anemia, neuromuscular, this is not meant to be an all-inclusive list. (Polo Edward) Medical Decision Making - Lab Data Result diagrams: 01/21/25 21:44 01/21/25 21:44 <Kristopher Burgos - Last Filed: 01/22/25 01:08> - Lab Data Result diagrams: 01/22/25 07:14 01/22/25 07:14 - EKG Data -: EKG Interpreted by Me - Radiology Data Radiology results: report reviewed (Chest x-ray is positive for pulmonary rodney a), image reviewed <Polo Edward - Last Filed: 01/22/25 22:57> - Medical Decision Making 34 female presenting for hypertensive emergency, initial nitro drip is downgraded to hydralazine IV, patient's symptoms are improving after 2 hours on BiPAP, patient will admit for need to dialysis. Patient feels like symptoms are improving here in the ER (Polo Edward) - Lab Data Lab Results 01/21/25 01/21/25 01/21/25 Range/Units 21:44 21:44 21:44 WBC 9.1 (3.8-10.6) k/uL RBC 3.12 L (3.80-5.40) m/uL Hgb 9.7 L (11.4-16.0) gm/dL Hct 31.4 L (34.0-46.0) % MCV 100.5 H (80.0-100.0) fL MCH 30.9 (25.0-35.0) pg MCHC 30.8 L (31.0-37.0) g/dL RDW 18.2 H (11.5-15.5) % Plt Count 379 (150-450) k/uL MPV 8.6 Neutrophils % 81 % Lymphocytes % 13 % Monocytes % 2 % Eosinophils % 3 % Basophils % 0 % Neutrophils # 7.3 (1.3-7.7) k/uL Lymphocytes # 1.1 (1.0-4.8) k/uL Monocytes # 0.1 (0-1.0) k/uL Eosinophils # 0.2 (0-0.7) k/uL Basophils # 0.0 (0-0.2) k/uL Hypochromasia Slight Anisocytosis Slight Macrocytosis Moderate PT 12.5 (10.0-12.5) sec INR 1.2 H (<1.2) APTT 23.4 (22.0-30.0) sec Sodium 129 L (137-145) mmol/L Potassium 4.7 (3.5-5.1) mmol/L Chloride 85 L (98-107) mmol/L Carbon Dioxide 28 (22-30) mmol/L Anion Gap 16 mmol/L BUN 39 H (7-17) mg/dL Creatinine 5.18 H (0.52-1.04) mg/dL Est GFR (CKD-EPI)AfAm 12 (>60 ml/min/1.73 sqM) Est GFR (CKD-EPI)NonAf 10 (>60 ml/min/1.73 sqM) Glucose 428 H (74-99) mg/dL POC Glucose (mg/dL) (70-110) mg/dL POC Glu Incident Response Consultant ID Plasma Lactic Acid Christopher (0.7-2.0) mmol/L Calcium 8.9 (8.4-10.2) mg/dL Total Bilirubin 1.0 (0.2-1.3) mg/dL AST 38 H (14-36) U/L ALT 50 H (4-34) U/L Alkaline Phosphatase 147 H (38-126) U/L Troponin I (0.000-0.034) ng/mL NT-Pro-B Natriuret Pep [id number] pg/mL Total Protein 6.6 (6.3-8.2) g/dL Albumin 4.1 (3.5-5.0) g/dL Influenza Type A (PCR) (Not Detectd) Influenza Type B (PCR) (Not Detectd) RSV (PCR) (Not Detectd) SARS-CoV-2 (PCR) (Not Detectd) 01/21/25 01/21/25 01/21/25 Range/Units 21:44 21:44 22:17 WBC (3.8-10.6) k/uL RBC (3.80-5.40) m/uL Hgb (11.4-16.0) gm/dL Hct (34.0-46.0) % MCV (80.0-100.0) fL MCH (25.0-35.0) pg MCHC (31.0-37.0) g/dL RDW (11.5-15.5) % Plt Count (150-450) k/uL MPV Neutrophils % % Lymphocytes % % Monocytes % % Eosinophils % % Basophils % % Neutrophils # (1.3-7.7) k/uL Lymphocytes # (1.0-4.8) k/uL Monocytes # (0-1.0) k/uL Eosinophils # (0-0.7) k/uL Basophils # (0-0.2) k/uL Hypochromasia Anisocytosis Macrocytosis PT (10.0-12.5) sec INR (<1.2) APTT (22.0-30.0) sec Sodium (137-145) mmol/L Potassium (3.5-5.1) mmol/L Chloride (98-107) mmol/L Carbon Dioxide (22-30) mmol/L Anion Gap mmol/L BUN (7-17) mg/dL Creatinine (0.52-1.04) mg/dL Est GFR (CKD-EPI)AfAm (>60 ml/min/1.73 sqM) Est GFR (CKD-EPI)NonAf (>60 ml/min/1.73 sqM) Glucose (74-99) mg/dL POC Glucose (mg/dL) (70-110) mg/dL POC Glu Incident Response Consultant ID Plasma Lactic Acid Christopher 1.3 (0.7-2.0) mmol/L Calcium (8.4-10.2) mg/dL Total Bilirubin (0.2-1.3) mg/dL AST (14-36) U/L ALT (4-34) U/L Alkaline Phosphatase (38-126) U/L Troponin I 0.015 (0.000-0.034) ng/mL NT-Pro-B Natriuret Pep pg/mL Total Protein (6.3-8.2) g/dL Albumin (3.5-5.0) g/dL Influenza Type A (PCR) Not Detected (Not Detectd) Influenza Type B (PCR) Not Detected (Not Detectd) RSV (PCR) Not Detected (Not Detectd) SARS-CoV-2 (PCR) Not Detected (Not Detectd) 01/22/25 Range/Units 02:11 WBC (3.8-10.6) k/uL RBC (3.80-5.40) m/uL Hgb (11.4-16.0) gm/dL Hct (34.0-46.0) % MCV (80.0-100.0) fL MCH (25.0-35.0) pg MCHC (31.0-37.0) g/dL RDW (11.5-15.5) % Plt Count (150-450) k/uL MPV Neutrophils % % Lymphocytes % % Monocytes % % Eosinophils % % Basophils % % Neutrophils # (1.3-7.7) k/uL Lymphocytes # (1.0-4.8) k/uL Monocytes # (0-1.0) k/uL Eosinophils # (0-0.7) k/uL Basophils # (0-0.2) k/uL Hypochromasia Anisocytosis Macrocytosis PT (10.0-12.5) sec INR (<1.2) APTT (22.0-30.0) sec Sodium (137-145) mmol/L Potassium (3.5-5.1) mmol/L Chloride (98-107) mmol/L Carbon Dioxide (22-30) mmol/L Anion Gap mmol/L BUN (7-17) mg/dL Creatinine (0.52-1.04) mg/dL Est GFR (CKD-EPI)AfAm (>60 ml/min/1.73 sqM) Est GFR (CKD-EPI)NonAf (>60 ml/min/1.73 sqM) Glucose (74-99) mg/dL POC Glucose (mg/dL) 473 H (70-110) mg/dL POC Glu Incident Response Consultant ID Achatz Zaira Plasma Lactic Acid Christopher (0.7-2.0) mmol/L Calcium (8.4-10.2) mg/dL Total Bilirubin (0.2-1.3) mg/dL AST (14-36) U/L ALT (4-34) U/L Alkaline Phosphatase (38-126) U/L Troponin I (0.000-0.034) ng/mL NT-Pro-B Natriuret Pep pg/mL Total Protein (6.3-8.2) g/dL Albumin (3.5-5.0) g/dL Influenza Type A (PCR) (Not Detectd) Influenza Type B (PCR) (Not Detectd) RSV (PCR) (Not Detectd) SARS-CoV-2 (PCR) (Not Detectd) Critical Care Time Critical Care Time: Yes Total Critical Care Time: 31 <Polo Edward - Last Filed: 01/22/25 22:57> Disposition <Kristopher Burgos - Last Filed: 01/22/25 01:08> Is patient prescribed a controlled substance at d/c from ED?: No Time of Disposition: 02:00 <Polo Edward - Last Filed: 01/22/25 22:57> Clinical Impression: Hypertensive emergency, Pulmonary edema, ESRD (end stage renal disease), Acute pulmonary edema, Acute respiratory failure, Hypoxia, Peripheral edema Disposition: ADMITTED IP TO THIS HOSP Condition: Serious
[2025-01-22 02:13] LABS: Glucose,Whole Blood 473 mg/dL (70-110)
[2025-01-22] MEDS: INSULIN REGULAR 100 UNIT/ML VIAL (IV) SQ STA (02:14)
[2025-01-22] MEDS ORDERED: NALOXONE 0.4 MG/ML 1 ML VIAL IV PRN (02:26)
[2025-01-22] MEDS: MORPHINE SULFATE 4 MG/ML SYRINGE IVP STA (02:39)
[2025-01-22] MEDS: ENALAPRILAT 1.25 MG/ML 1 ML VIAL IVP STA (02:49)
[2025-01-22 06:29] LABS: Glucose,Whole Blood 278 mg/dL (70-110)
[2025-01-22 07:32] LABS: Anisocytosis Slight; Basophils % (A) 0 %; Eosinophils # (A) 0.6 k/uL (0-0.7); Eosinophils % (A) 6 %; HCT 29.6 % (34.0-46.0); HGB 9.2 gm/dL (11.4-16.0); Lymphocytes # (A) 1.5 k/uL (1.0-4.8); Lymphocytes % (A) 14 %; MCHC 30.9 g/dL (31.0-37.0); MCV 100.3 fL (80.0-100.0); Macrocytosis Moderate; Mean Platelet Volume 7.7; Monocytes # (A) 0.3 k/uL (0-1.0); Monocytes % (A) 3 %; Neutrophils # (A) 8.2 k/uL (1.3-7.7); Neutrophils % (A) 76 %; Platelet Count 374 k/uL (150-450); RBC 2.96 m/uL (3.80-5.40); RDW 18.2 % (11.5-15.5); WBC 10.8 k/uL (3.8-10.6)
[2025-01-22 08:13] LABS: ALT 43 U/L (4-34); AST 30 U/L (14-36); African American GFR (CKD) 11 (>60 ml/min/1.73 sqM); Albumin 3.8 g/dL (3.5-5.0); Alkaline Phosphatase 133 U/L (38-126); Anion Gap 13 mmol/L; Blood Urea Nitrogen 46 mg/dL (7-17); Carbon Dioxide 28 mmol/L (22-30); Chloride 86 mmol/L (98-107); Glucose 234 mg/dL (74-99); Magnesium 1.9 mg/dL (1.6-2.3); Non-African American GFR(CKD) 9 (>60 ml/min/1.73 sqM); Phosphorus 7.3 mg/dL (2.5-4.5); Potassium 4.3 mmol/L (3.5-5.1); Sodium 127 mmol/L (137-145); Total Bilirubin 0.8 mg/dL (0.2-1.3); Total Protein 6.3 g/dL (6.3-8.2)
[2025-01-22] MEDS ORDERED: DEXTROSE 50% SYRINGE 50 ML IVP PRN ×2 (08:34)
[2025-01-22] MEDS: MORPHINE SULFATE 4 MG/ML SYRINGE IV PRN (09:01)
--- NOTE | 2025-01-22 09:39 | P.NPCON ---
History of Present Illness - Reason for Consult end stage renal disease - History of Present Illness Reason for consultation: End-stage renal disease History of present is: Patient is a 34-year-old female seen in consultation for end-stage renal disease. Patient was seen and examined in emergency room. She is maintained on hemodialysis on Wednesday. Last dialysis was Wednesday. Patient states around 6 in the morning she became short of breath and came to the hospital. She was due for dialysis date outpatient but at 2:30 PM and could not wait. She is currently on 2 L nasal cannula. She is currently being dialyzed. Chest x-ray suggestive of vascular congestion. Patient does not make urine. She denies excessive fluid intake. No chest pain. No vomiting or diarrhea. Patient does have history of diabetes. She was on nitroglycerin drip which has now been discontinued. Vital signs are stable. General: No acute distress. HEENT: Head exam is unremarkable. LUNGS: No audible rhonchi or wheezes. HEART: Rate and Rhythm are regular. ABDOMEN: Nontender. EXTREMITITES: 1+ edema. 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 Past Anesthesia/Blood Transfusion Reactions: Previous Problems w/ Anesthesia Additional Past Anesthesia/Blood Transfusion Reaction / Comment(s): confusion Past Psychological History: Anxiety, Depression Smoking Status: Current every day smoker Past Alcohol Use History: None Reported Past Drug Use History: Marijuana - Past Family History Father History Unknown: Yes Family Medical History: Unable to Obtain Mother History Unknown: Yes Family Medical History: No Reported History Grandfather History Unknown: Yes Family Medical History: Coronary Artery Disease (CAD) Additional Family Medical History / Comment(s): Diabetes mellitus type 2 Medications and Allergies Home Medications Medication Instructions Recorded Confirmed Type Docusate [Colace] 100 mg PO DAILY@0800 02/05/24 12/27/24 History Lidocaine 4% Patch 1 patch TOPICAL DAILY@0800 02/05/24 12/27/24 History Magnesium Hydroxide [Milk of 7,200 mg PO DAILY PRN 02/05/24 12/27/24 History Magnesia Concentrate] Ipratropium-Albuterol Nebulize 3 ml INHALATION RT-TID PRN each 02/14/24 12/27/24 Rx [Duoneb 0.5 mg-3 mg/3 ml Soln] polyethylene glycoL 3350 [Miralax] 17 gm PO AC-LUNCH #527 gm 02/14/24 12/27/24 Rx Acetaminophen [Tylenol] 650 mg PO Q4H PRN 02/18/24 12/27/24 History Biotene Dry Mouth/Throat 10 ml PO BID PRN 02/18/24 12/27/24 History Melatonin 1 mg PO HS tab 02/25/24 12/27/24 Rx Butalb/APAP/Caff 50-325-40Mg 1 tab PO Q4HR PRN 03/14/24 12/27/24 History [Fioricet 50-325-40] Darbepoetin Artur [Aranesp] 40 mcg SQ MO 03/14/24 12/27/24 History Loratadine [Claritin] 5 mg PO DAILY tab 03/30/24 12/27/24 Rx Aspirin 81 mg PO DAILY@0800 #30 tab 05/18/24 12/27/24 Rx Famotidine [Pepcid] 20 mg PO BID #60 tab 07/11/24 12/27/24 Rx Levothyroxine Sodium [Synthroid] 175 mcg PO DAILY@0608/14/24 12/27/24 History Metoclopramide [Reglan] 5 mg PO AC-TID PRN 08/14/24 12/27/24 History Pantoprazole [Protonix] 40 mg PO DAILY@0608/14/24 12/27/24 History Sertraline [Zoloft] 200 mg PO DAILY@0800 08/14/24 12/27/24 History ALPRAZolam [Xanax] 0.25 mg PO BID PRN 09/04/24 12/27/24 History Calcium Acetate [PhosLo] 2,001 mg PO TID-W/MEALS 09/04/24 12/27/24 History Calcium Acetate [PhosLo] 667 mg PO DAILY PRN 09/04/24 12/27/24 History Colchicine [Colcrys] 0.3 mg PO DAILY #15 each 09/23/24 12/27/24 Rx Insulin Aspart (For Pump) [NovoLOG 0.01 unit SQ-PUMP CONTINUOUS 11/02/24 12/27/24 History (For Pump)] Ondansetron Odt [Zofran ODT] 4 mg PO Q8HR PRN 11/02/24 12/27/24 History Atorvastatin [Lipitor] 40 mg PO HS #0 11/23/24 12/27/24 Rx oxyCODONE-APAP 10-325MG [Percocet 1 tab PO Q4HR PRN #18 tab 11/23/24 12/27/24 Rx 10-325 mg] Folic Acid/Vit B Complex and C 0.8 mg PO DAILY 12/20/24 12/27/24 History [Davina-Mayte Tablet] hydrALAZINE HCL [Apresoline] 100 mg PO TID 30 Days #90 tab 01/01/25 Rx traZODone HCL [Desyrel] 50 mg PO HS #20 tab 01/01/25 Rx Divalproex ER [Depakote ER] 500 mg PO BID@0800,1700 #60 tab 01/02/25 Rx Isosorbide Mononitrate ER [Imdur] 120 mg PO DAILY #60 tab 01/02/25 Rx Labetalol [Trandate] 500 mg PO BID 30 Days #150 tab 01/02/25 Rx NIFEdipine XL [Procardia XL] 60 mg PO BID 30 Days #60 tab 01/02/25 Rx cloNIDine HCL [Catapres] 0.3 mg PO TID #90 tab 01/02/25 Rx Gabapentin [Neurontin] 100 mg PO BID 30 Days #60 cap 01/03/25 Rx Linagliptin [Tradjenta] 5 mg PO DAILY #30 tab 01/03/25 Rx Allergies Allergy/AdvReac Type Severity Reaction Status Date / Time hydromorphone HCl Allergy Anaphylaxis Verified 12/27/24 15:04 [From Dilaudid] propoxyphene Allergy Rash/Hives Verified 12/27/24 15:04 [From Darvocet-N] tramadol Allergy Anaphylaxis Verified 12/27/24 15:04 ibuprofen [From Motrin] AdvReac unable to Verified 12/27/24 15:04 take due to kidney disease venom-honey bee AdvReac passes out Verified 12/27/24 15:04 [bee venom (honey bee)] Physical Exam Vitals: Vital Signs Temp Pulse Resp BP Pulse Ox FiO2 01/22/25 08:42 95 40 01/22/25 08:04 98.7 F 83 16 168/90 100 01/22/25 06:31 71 18 159/90 100 01/22/25 05:00 81 18 167/99 100 01/22/25 03:44 78 18 167/95 100 01/22/25 02:20 80 24 177/98 100 01/22/25 02:00 79 26 H 179/102 100 01/22/25 00:36 81 36 H 193/107 100 01/22/25 00:29 40 01/22/25 00:28 40 01/21/25 23:59 84 20 189/103 100 01/21/25 23:33 88 20 192/109 100 01/21/25 23:27 86 18 196/107 100 01/21/25 23:18 87 20 199/116 100 01/21/25 22:35 87 24 199/108 100 01/21/25 22:23 84 25 H 201/105 100 01/21/25 21:01 92 24 225/130 01/21/25 20:21 97.2 F L 87 24 231/131 100 Intake and Output 01/21/25 01/22/25 01/22/25 22:59 06:59 14:59 Intake Total 8.175 32.675 Balance 8.175 32.675 Intake: Intake, IV Titration 8.175 32.675 Amount Nitroglycerin-D5w Pmx 50 8.175 32.675 mg In Dextrose/Water 1 250ml.bag @ 20 MCG/MIN 6 mls/hr IV .Q24H ONE Rx#: [id number] Other: Weight 59.874 kg Results - Lab Results Most recent lab results Calcium 9.0 mg/dL (8.4-10.2) 01/22/25 07:14 Phosphorus 7.3 mg/dL (2.5-4.5) H 01/22/25 07:14 Magnesium 1.9 mg/dL (1.6-2.3) 01/22/25 07:14 01/22/25 07:14 01/22/25 07:14 Assessment and Plan Plan: Assessment: 1. End-stage renal disease maintained on hemodialysis on Wednesday schedule. AV graft is being used outpatient. Still has permacath. 2. Hypertensive emergency status post nitroglycerin drip. 3. Acute hypoxic respiratory failure. 4. Volume overload. 5. Diabetes mellitus. 6. Chronic kidney disease mineral bone disease. 7. Anemia of chronic kidney disease. 8. Hypervolemic hyponatremia. Plan: Currently seen while undergoing hemodialysis. Another treatment tomorrow. Challenge ultrafiltration. Check iron studies. Resume PhosLo with meals. Home meds to be resumed. Blood glucose control. 1500 cc fluid restriction. Thank you for the consultation. I will continue to follow the patient with you during her hospital stay.
[2025-01-22] MEDS: cloNIDine HCL 0.1 MG TAB PO SCH (11:05)
[2025-01-22 12:17] LABS: Glucose,Whole Blood 231 mg/dL (70-110)
[2025-01-22] MEDS: INSULIN LISPRO (HumaLOG) 100 UNIT/ML 10 mL VL SQ SCH ×2 (12:47→16:41)
[2025-01-22] MEDS: CALCIUM ACETATE 667 MG TAB PO SCH (12:47)
[2025-01-22] MEDS ORDERED: MAGNESIUM HYDROXIDE 2,400 MG/30 ML CUP PO PRN (12:48)
[2025-01-22] MEDS ORDERED: ACETAMINOPHEN TAB 325 MG TAB PO PRN (12:48)
[2025-01-22] MEDS ORDERED: IPRATROPIUM-ALBUTEROL 3 ML NEB INHALATION PRN (12:48)
[2025-01-22] MEDS ORDERED: METOCLOPRAMIDE 5 MG TAB PO PRN (12:48)
[2025-01-22] MEDS: hydrALAZINE HCL 50 MG TAB PO STA (13:30)
--- NOTE | 2025-01-22 14:08 | P.HPIM ---
History of Present Illness H&P Date: 01/22/25 Patient is a 34-year-old female with history of type 2 diabetes melitis, GERD, hypertension, ESRD on hemodialysis (M, T, T, S), hypothyroidism presents to the ER with complaint of shortness of breath that started yesterday evening. Patient reports that she did not miss her dialysis session. Her dialysis output is anywhere between 4 to 5 L per session. She has been experiencing cough since couple weeks which is associated with small amount of brown-colored sputum. She has been endorsing some chills and night sweats. Patient denies any sick contacts. Initial lab evaluation shows WBC of 9.1, RBC 3.12, hemoglobin 9.7, hematocrit 31.4, MCV 100.5, platelet count 379, neutrophil count 7.3, PT 12.5, INR, 1.2, 8. 3.4, sodium 129, potassium 4.7, chloride 85, bicarb 28, BUN 39, creatinine 5.18, EGFR 10, glucose 428, plasma lactic acid 1.3, calcium 8.9, total bili 1.0, AST 38, ALT 50, ALP 147, troponin I 0.015, NT proBNP [id number], albumin 4.1, influenza type A/B, RSV and COVID-19 is negative. Chest x-ray interpreted independently shows bilateral pulmonary edema. EKG interpreted independently shows normal sinus rhythm ventricular rate 87 bpm, OH interval 138 ms, QRS duration 89 ms, QTc 450 ms which is borderline prolonged. Vitals on arrival temperature 97.2 F, pulse rate 87, respirate 24, blood pressure 231/131, oxygen saturation 100 on nonrebreather with low O2 flow rate of 15. At the time of interview, patient was undergoing hemodialysis. Patient reports that she has been feeling a lot better compared to how she presented initially. Review of systems: Pertinent positives and negatives as discussed in HPI, a complete review of systems was performed and all other systems are negative. Social history: Tobacco: 4 cigarettes a day x 10 years Alcohol: no Recreational drugs: Marijuana 4 months ago Travel: No Occupation: No Family History: Non contributary Physical examination: Vital signs reviewed General: non toxic, no distress, appears at stated age, normal weight Derm: no unusual rashes/lesions, warm Head: atraumatic, normocephalic, symmetric Eyes: EOMI, no lid lag, anicteric sclera, pupils equal round reactive to light ENT: Nose and ears atraumatic Neck: No cervical lymphadenopathy, trachea midline, supple Mouth: no lip lesion, mucus membranes moist Cardiovascular: S1S2 reg, no murmur, positive dorsalis pedis pulse bilateral, no edema Lungs: Decreased breath sounds bilaterally in the lower lobes Abdominal: soft, nontender to palpation, no guarding Ext: muscle strength 5 out of 5 in all 4 extremities grossly, no gross muscle atrophy, no contractures, Neuro: CN II-XI grossly intact, no gross focal neuro deficits Psych: Alert, oriented, appropriate affect Assessment/Plan: Pertinent Labs: On 01/21/2025 shows WBC 9.2, hemoglobin 9.7, MCV 100.5, platelet count 397, neutrophil count 0.3, PT 12.5, INR 1.2, APTT 33.4, sodium 139, potassium 4.7, chloride 85, bicarb 28, BUN 39, creatinine 5.18, EGFR 10, glucose 428, AST 38, ALT 50, ALP 147, troponin I 0.015, NT proBNP [id number] 01/22/2025 shows WBC 12.8, hemoglobin 9.2, MCV 80.3, platelet count 334, neutrophil count 8.2, sodium 137, potassium 4.3, chloride 86, bicarb 28, BUN 46, creatinine 5.58, calcium 9.0, phosphorus 0.3, magnesium 1.9, AST 3, ALT 43, ALP 133 Cepheid 4 is negative This is a Patient is a 34-year-old female with history of type 2 diabetes melitis, GERD, hypertension, ESRD on hemodialysis (M, T, T, S), hypothyroidism presents to the ER with complaint of shortness of breath that started yesterday evening. Case was discussed with the Emergency Room provider and decision was made to admit the patient for ESRD on hemodialysis for fluid overload. Active problem: #End-stage renal disease on hemodialysis #Hypervolemic hyponatremia secondary to above #Acute on chronic ELOINA #Pulmonary edema #Hypertensive emergency #Acute hypoxemic respiratory failure secondary to vascular congestion #Hyperphosphatemia Consult nephrology Hemodialysis Renal diet Cardiac telemetry Order chest x-ray Monitor I's and O's and daily weights Order CBC and CMP Continue oxygen therapy Patient receive Catapres 0.3 mg p.o. once stat and hydralazine 20 mg IV once stat in the ER Resume her home medications for hypertension: Procardia XL 60 mg p.o. twice daily, labetalol 500 g p.o. twice daily hydralazine 100 mg p.o. 3 times daily clonidine 0.3 mg p.o. 3 times daily #Anemia of chronic disease Order iron studies #Hyperglycemia Accu-Cheks and sliding scale Order HbA1c Monitor for hypoglycemia Order Lantus 6 units in a.m. and 6 units in p.m. Resume home log 8 units 3 times daily with meals Chronic: #Hyperlipidemia #GERD #Anxiety and depression Resume trazodone 50 mg p.o. at bedtime, Zoloft 200 mg p.o. daily, pantoprazole 40 mg p.o. daily, Percocet 103 25 1 p.o. every 4 hours as needed, Synthroid 175 mcg p.o. daily, Imdur 120 mg p.o. daily gabapentin 100 mg p.o. twice daily Pepcid 20 mg p.o. twice daily DVT prophylaxis: SCDs GI prophylaxis: Pantoprazole 40 mg p.o. daily F: None E: Replete as needed N: Renal diet A: Ambulatory at baseline The patient is admitted with an anticipated less than than 2 midnight stay for evaluation of ESRD on hemodialysis with fluid overload CODE STATUS: Full code Discussed with: Patient Anticipated discharge place: Pending clinical course Dictation was produced using [employer] dictation software. Please excuse any grammatical, word or spelling errors. Attestation I have seen and examined this patient with my resident , discussed the same with the resident/ANTHONY, and agree with the dictator's assessment and plan as written GENERAL: The patient is alert and oriented x3, chronically ill looking HEENT: Pupils are round and equally reacting to light. EOMI. No scleral icterus. No conjunctival pallor. Normocephalic, atraumatic. No pharyngeal erythema. No thyromegaly. CARDIOVASCULAR: S1 and S2 present. No murmurs, rubs, or gallops. PULMONARY: Chest is clear to auscultation, no wheezing or crackles. ABDOMEN: Soft, nontender, nondistended, normoactive bowel sounds. No palpable organomegaly. MUSCULOSKELETAL: 1Plus pitting edema lower extremities bilaterally EXTREMITIES: No cyanosis, clubbing, NEUROLOGICAL: Gross neurological examination did not reveal any focal deficits. SKIN: No rashes. Dr. 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 Past Anesthesia/Blood Transfusion Reactions: Previous Problems w/ Anesthesia Additional Past Anesthesia/Blood Transfusion Reaction / Comment(s): confusion Past Psychological History: Anxiety, Depression Smoking Status: Current every day smoker Past Alcohol Use History: None Reported Past Drug Use History: Marijuana - Past Family History Father History Unknown: Yes Family Medical History: Unable to Obtain Mother History Unknown: Yes Family Medical History: No Reported History Grandfather History Unknown: Yes Family Medical History: Coronary Artery Disease (CAD) Additional Family Medical History / Comment(s): Diabetes mellitus type 2 Medications and Allergies Home Medications Medication Instructions Recorded Confirmed Type Docusate [Colace] 100 mg PO DAILY@79902/05/24 01/22/25 History Lidocaine 4% Patch 1 patch TOPICAL DAILY@79902/05/24 01/22/25 History Magnesium Hydroxide [Milk of 7,200 mg PO DAILY PRN 02/05/24 01/22/25 History Magnesia Concentrate] Ipratropium-Albuterol Nebulize 3 ml INHALATION RT-TID PRN each 02/14/24 01/22/25 Rx [Duoneb 0.5 mg-3 mg/3 ml Soln] polyethylene glycoL 3350 [Miralax] 17 gm PO AC-LUNCH #527 gm 02/14/24 01/22/25 Rx Acetaminophen [Tylenol] 650 mg PO Q4H PRN 02/18/24 01/22/25 History Biotene Dry Mouth/Throat 10 ml PO BID PRN 02/18/24 01/22/25 History Melatonin 1 mg PO HS tab 02/25/24 01/22/25 Rx Butalb/APAP/Caff 50-325-40Mg 1 tab PO Q4HR PRN 03/14/24 01/22/25 History [Fioricet 50-325-40] Darbepoetin Artur [Aranesp] 40 mcg SQ MO 03/14/24 01/22/25 History Loratadine [Claritin] 5 mg PO DAILY tab 03/30/24 01/22/25 Rx Aspirin 81 mg PO DAILY@0800 #30 tab 05/18/24 01/22/25 Rx Famotidine [Pepcid] 20 mg PO BID #60 tab 07/11/24 01/22/25 Rx Levothyroxine Sodium [Synthroid] 175 mcg PO DAILY@0600 08/14/24 01/22/25 History Metoclopramide [Reglan] 5 mg PO AC-TID PRN 08/14/24 01/22/25 History Pantoprazole [Protonix] 40 mg PO DAILY@0600 08/14/24 01/22/25 History Sertraline [Zoloft] 200 mg PO DAILY@0800 08/14/24 01/22/25 History ALPRAZolam [Xanax] 0.25 mg PO BID PRN 09/04/24 01/22/25 History Calcium Acetate [PhosLo] 2,001 mg PO TID-W/MEALS 09/04/24 01/22/25 History Calcium Acetate [PhosLo] 667 mg PO DAILY PRN 09/04/24 01/22/25 History Colchicine [Colcrys] 0.3 mg PO DAILY #15 each 09/23/24 01/22/25 Rx Ondansetron Odt [Zofran ODT] 4 mg PO Q8HR PRN 11/02/24 01/22/25 History Atorvastatin [Lipitor] 40 mg PO HS #0 11/23/24 01/22/25 Rx oxyCODONE-APAP 10-325MG [Percocet 1 tab PO Q4HR PRN #18 tab 11/23/24 01/22/25 Rx 10-325 mg] Folic Acid/Vit B Complex and C 0.8 mg PO DAILY 12/20/24 01/22/25 History [Davina-Mayte Tablet] hydrALAZINE HCL [Apresoline] 100 mg PO TID 30 Days #90 tab 01/01/25 01/22/25 Rx traZODone HCL [Desyrel] 50 mg PO HS #20 tab 01/01/25 01/22/25 Rx Divalproex ER [Depakote ER] 500 mg PO BID@0800,1700 #60 tab 01/02/25 01/22/25 Rx Isosorbide Mononitrate ER [Imdur] 120 mg PO DAILY #60 tab 01/02/25 01/22/25 Rx Labetalol [Trandate] 500 mg PO BID 30 Days #150 tab 01/02/25 01/22/25 Rx NIFEdipine XL [Procardia XL] 60 mg PO BID 30 Days #60 tab 01/02/25 01/22/25 Rx Gabapentin [Neurontin] 100 mg PO BID 30 Days #60 cap 01/03/25 01/22/25 Rx Linagliptin [Tradjenta] 5 mg PO DAILY #30 tab 01/03/25 01/22/25 Rx Insulin Lispro [humaLOG Kwikpen] 8 unit SQ AC-TID 01/22/25 01/22/25 History Insulin Lispro [humaLOG Kwikpen] See Protocol SQ AC-TID 01/22/25 01/22/25 History cloNIDine HCL [Catapres] 0.3 mg PO TID 01/22/25 01/22/25 History Allergies Allergy/AdvReac Type Severity Reaction Status Date / Time hydromorphone HCl Allergy Anaphylaxis Verified 12/27/24 15:04 [From Dilaudid] propoxyphene Allergy Rash/Hives Verified 12/27/24 15:04 [From Darvocet-N] tramadol Allergy Anaphylaxis Verified 12/27/24 15:04 ibuprofen [From Motrin] AdvReac unable to Verified 12/27/24 15:04 take due to kidney disease venom-honey bee AdvReac passes out Verified 12/27/24 15:04 [bee venom (honey bee)] Physical Exam Vitals: Vital Signs Temp Pulse Resp BP Pulse Ox FiO2 01/22/25 08:04 98.7 F 83 16 168/90 100 01/22/25 06:31 71 18 159/90 100 01/22/25 05:00 81 18 167/99 100 01/22/25 03:44 78 18 167/95 100 01/22/25 02:20 80 24 177/98 100 01/22/25 02:00 79 26 H 179/102 100 01/22/25 00:36 81 36 H 193/107 100 01/22/25 00:29 40 01/22/25 00:28 40 01/21/25 23:59 84 20 189/103 100 01/21/25 23:33 88 20 192/109 100 01/21/25 23:27 86 18 196/107 100 01/21/25 23:18 87 20 199/116 100 01/21/25 22:35 87 24 199/108 100 01/21/25 22:23 84 25 H 201/105 100 01/21/25 21:01 92 24 225/130 01/21/25 20:21 97.2 F L 87 24 231/131 100 Intake and Output 01/21/25 01/22/25 01/22/25 22:59 06:59 14:59 Intake Total 8.175 32.675 Balance 8.175 32.675 Intake: Intake, IV Titration 8.175 32.675 Amount Nitroglycerin-D5w Pmx 50 8.175 32.675 mg In Dextrose/Water 1 250ml.bag @ 20 MCG/MIN 6 mls/hr IV .Q24H ONE Rx#: [id number] Other: Weight 59.874 kg Results CBC & Chem 7: 01/22/25 07:14 01/22/25 07:14 Labs: Abnormal Lab Results - Last 24 Hours (Table) 01/21/25 01/21/25 01/21/25 Range/Units 21:44 21:44 21:44 WBC (3.8-10.6) k/uL RBC 3.12 L (3.80-5.40) m/uL Hgb 9.7 L (11.4-16.0) gm/dL Hct 31.4 L (34.0-46.0) % MCV 100.5 H (80.0-100.0) fL MCHC 30.8 L (31.0-37.0) g/dL RDW 18.2 H (11.5-15.5) % Neutrophils # (1.3-7.7) k/uL INR 1.2 H (<1.2) Sodium 129 L (137-145) mmol/L Chloride 85 L (98-107) mmol/L BUN 39 H (7-17) mg/dL Creatinine 5.18 H (0.52-1.04) mg/dL Glucose 428 H (74-99) mg/dL POC Glucose (mg/dL) (70-110) mg/dL Phosphorus (2.5-4.5) mg/dL AST 38 H (14-36) U/L ALT 50 H (4-34) U/L Alkaline Phosphatase 147 H (38-126) U/L 01/22/25 01/22/25 01/22/25 Range/Units 02:11 06:27 07:14 WBC 10.8 H (3.8-10.6) k/uL RBC 2.96 L (3.80-5.40) m/uL Hgb 9.2 L (11.4-16.0) gm/dL Hct 29.6 L (34.0-46.0) % MCV 100.3 H (80.0-100.0) fL MCHC 30.9 L (31.0-37.0) g/dL RDW 18.2 H (11.5-15.5) % Neutrophils # 8.2 H (1.3-7.7) k/uL INR (<1.2) Sodium (137-145) mmol/L Chloride (98-107) mmol/L BUN (7-17) mg/dL Creatinine (0.52-1.04) mg/dL Glucose (74-99) mg/dL POC Glucose (mg/dL) 473 H 278 H (70-110) mg/dL Phosphorus (2.5-4.5) mg/dL AST (14-36) U/L ALT (4-34) U/L Alkaline Phosphatase (38-126) U/L 01/22/25 Range/Units 07:14 WBC (3.8-10.6) k/uL RBC (3.80-5.40) m/uL Hgb (11.4-16.0) gm/dL Hct (34.0-46.0) % MCV (80.0-100.0) fL MCHC (31.0-37.0) g/dL RDW (11.5-15.5) % Neutrophils # (1.3-7.7) k/uL INR (<1.2) Sodium 127 L (137-145) mmol/L Chloride 86 L (98-107) mmol/L BUN 46 H (7-17) mg/dL Creatinine 5.58 H (0.52-1.04) mg/dL Glucose 234 H (74-99) mg/dL POC Glucose (mg/dL) (70-110) mg/dL Phosphorus 7.3 H (2.5-4.5) mg/dL AST (14-36) U/L ALT 43 H (4-34) U/L Alkaline Phosphatase 133 H (38-126) U/L
[2025-01-22] MEDS: DARBEPOETIN ALFA 40 MCG/0.4 ML SYRINGE SQ SCH (14:40)
[2025-01-22 15:37] LABS: % Iron Saturation 24.54 (12.00-45.00)
[2025-01-22] MEDS: hydrALAZINE HCL 50 MG TAB PO SCH (15:43)
[2025-01-22] MEDS: DIVALPROEX ER 500 MG TAB.ER.24H PO SCH (15:43)
[2025-01-22] MEDS ORDERED: NON FORMULARY DRUG (Clonidine Hcl [Catapres] 0.3 MG Tablet) PO SCH (16:00)
[2025-01-22 16:50] LABS: Glucose,Whole Blood 200 mg/dL (70-110)
[2025-01-22] MEDS: oxyCODONE-APAP 10-325MG 1 EACH TAB PO PRN (17:22)
[2025-01-22] MEDS ORDERED: NON FORMULARY DRUG (Insulin Lispro [Humalog Kwikpen] 100 UNIT/ML Insuln.Pen) SQ SCH (17:30)
[2025-01-22] MEDS: ONDANSETRON ODT 4 MG TAB PO PRN (18:05)
[2025-01-22 20:24] LABS: Glucose,Whole Blood 177 mg/dL (70-110)
[2025-01-22] MEDS: traZODone HCL 50 MG TAB PO SCH (20:44)
[2025-01-22] MEDS: LABETALOL 200 MG TAB PO SCH (20:44)
[2025-01-22] MEDS: MELATONIN 1 MG TAB PO SCH (20:44)
[2025-01-22] MEDS: ATORVASTATIN 40 MG TAB PO SCH (20:45)
[2025-01-22] MEDS: GABAPENTIN 100 MG CAP PO SCH (20:45)
[2025-01-22] MEDS: INSULIN GLARGINE (LANTUS) 100 UNIT/ML SYR SQ SCH (20:45)
[2025-01-22] MEDS ORDERED: FAMOTIDINE 20 MG TAB PO SCH (21:00)
[2025-01-23 06:09] LABS: Glucose,Whole Blood 275 mg/dL (70-110)
[2025-01-23] MEDS: LEVOTHYROXINE 88 MCG TAB PO SCH (06:31)
[2025-01-23] MEDS: PANTOPRAZOLE 40 MG TABLET PO SCH (06:31)
[2025-01-23] MEDS: SERTRALINE 100 MG TAB PO SCH (08:41)
[2025-01-23] MEDS: ASPIRIN 81 MG PO SCH (08:42)
[2025-01-23] MEDS: ISOSORBIDE MONONITRATE ER 60 MG TAB.ER.24H PO SCH (08:42)
[2025-01-23] MEDS: DOCUSATE 100 MG CAP PO SCH (08:42)
[2025-01-23] MEDS: COLCHICINE 0.6 MG EACH PO SCH (08:42)
[2025-01-23] MEDS: LORATADINE 10 MG TAB PO SCH (08:42)
[2025-01-23] MEDS: ONDANSETRON 4 MG/2 ML VIAL IVP PRN (09:21)
[2025-01-23 10:07] LABS: Anisocytosis Slight; Basophils # (A) 0.1 k/uL (0-0.2); Basophils % (A) 0 %; Eosinophils # (A) 0.6 k/uL (0-0.7); Eosinophils % (A) 6 %; HCT 26.3 % (34.0-46.0); HGB 8.3 gm/dL (11.4-16.0); Hypochromasia Slight; Lymphocytes # (A) 0.9 k/uL (1.0-4.8); Lymphocytes % (A) 9 %; MCH 31.6 pg (25.0-35.0); MCHC 31.4 g/dL (31.0-37.0); MCV 100.8 fL (80.0-100.0); Macrocytosis Moderate; Mean Platelet Volume 7.6; Monocytes # (A) 0.4 k/uL (0-1.0); Monocytes % (A) 4 %; Neutrophils # (A) 8.5 k/uL (1.3-7.7); Neutrophils % (A) 80 %; Platelet Count 292 k/uL (150-450); RBC 2.61 m/uL (3.80-5.40); RDW 17.8 % (11.5-15.5); WBC 10.7 k/uL (3.8-10.6)
[2025-01-23 10:37] LABS: ALT 34 U/L (4-34); AST 26 U/L (14-36); African American GFR (CKD) 14 (>60 ml/min/1.73 sqM); Albumin 3.7 g/dL (3.5-5.0); Alkaline Phosphatase 105 U/L (38-126); Anion Gap 10 mmol/L; Blood Urea Nitrogen 29 mg/dL (7-17); Calcium 9.3 mg/dL (8.4-10.2); Carbon Dioxide 31 mmol/L (22-30); Chloride 88 mmol/L (98-107); Glucose 203 mg/dL (74-99); Non-African American GFR(CKD) 12 (>60 ml/min/1.73 sqM); Phosphorus 5.1 mg/dL (2.5-4.5); Potassium 3.9 mmol/L (3.5-5.1); Sodium 129 mmol/L (137-145); Total Bilirubin 0.8 mg/dL (0.2-1.3); Total Protein 6.2 g/dL (6.3-8.2)
--- NOTE | 2025-01-23 11:28 | P.PN ---
Subjective Patient is seen in follow-up for end-stage renal disease. She is maintained on hemodialysis Wednesday. Tolerating dialysis well. Dyspnea improved. Vital signs are stable. General: No acute distress. HEENT: Head exam is unremarkable. On nasal cannula. LUNGS: No audible rhonchi or wheezes. HEART: Rate and Rhythm are regular. ABDOMEN: Nontender. EXTREMITITES: No edema. Objective - Vital Signs Vital signs: Vital Signs Temp 97.8 F 01/23/25 08:00 Pulse 82 01/23/25 08:00 Resp 20 01/23/25 08:00 BP 146/80 01/23/25 08:00 Pulse Ox 99 01/23/25 08:00 FiO2 40 01/23/25 09:11 Intake & Output 01/22/25 01/23/25 01/23/25 18:59 06:59 18:59 Intake Total 400 Output Total 8400 Balance -8000 Weight 59.874 kg 64.9 kg Intake: Hemodialysis 400 Output: Hemodialysis 4400 Hemodialysis Net Amount 4000 - Labs CBC & Chem 7: 01/23/25 09:30 01/23/25 09:30 Labs: Abnormal Lab Results - Last 24 Hours (Table) 01/22/25 01/22/25 01/22/25 Range/Units 07:14 07:14 12:16 WBC (3.8-10.6) k/uL RBC (3.80-5.40) m/uL Hgb (11.4-16.0) gm/dL Hct (34.0-46.0) % MCV (80.0-100.0) fL RDW (11.5-15.5) % Neutrophils # (1.3-7.7) k/uL Lymphocytes # (1.0-4.8) k/uL Sodium (137-145) mmol/L Chloride (98-107) mmol/L Carbon Dioxide (22-30) mmol/L BUN (7-17) mg/dL Creatinine (0.52-1.04) mg/dL Glucose (74-99) mg/dL POC Glucose (mg/dL) 231 H (70-110) mg/dL Hemoglobin A1c 9.8 H (<=6.0) % Phosphorus (2.5-4.5) mg/dL Transferrin 192.0 L (204.0-354.0) mg/dL Ferritin 909.0 H (10.0-291.0) ng/mL Total Protein (6.3-8.2) g/dL 01/22/25 01/22/25 01/23/25 Range/Units 16:47 20:23 06:03 WBC (3.8-10.6) k/uL RBC (3.80-5.40) m/uL Hgb (11.4-16.0) gm/dL Hct (34.0-46.0) % MCV (80.0-100.0) fL RDW (11.5-15.5) % Neutrophils # (1.3-7.7) k/uL Lymphocytes # (1.0-4.8) k/uL Sodium (137-145) mmol/L Chloride (98-107) mmol/L Carbon Dioxide (22-30) mmol/L BUN (7-17) mg/dL Creatinine (0.52-1.04) mg/dL Glucose (74-99) mg/dL POC Glucose (mg/dL) 200 H 177 H 275 H (70-110) mg/dL Hemoglobin A1c (<=6.0) % Phosphorus (2.5-4.5) mg/dL Transferrin (204.0-354.0) mg/dL Ferritin (10.0-291.0) ng/mL Total Protein (6.3-8.2) g/dL 01/23/25 01/23/25 Range/Units 09:30 09:30 WBC 10.7 H (3.8-10.6) k/uL RBC 2.61 L (3.80-5.40) m/uL Hgb 8.3 L (11.4-16.0) gm/dL Hct 26.3 L (34.0-46.0) % MCV 100.8 H (80.0-100.0) fL RDW 17.8 H (11.5-15.5) % Neutrophils # 8.5 H (1.3-7.7) k/uL Lymphocytes # 0.9 L (1.0-4.8) k/uL Sodium 129 L (137-145) mmol/L Chloride 88 L (98-107) mmol/L Carbon Dioxide 31 H (22-30) mmol/L BUN 29 H (7-17) mg/dL Creatinine 4.50 H (0.52-1.04) mg/dL Glucose 203 H (74-99) mg/dL POC Glucose (mg/dL) (70-110) mg/dL Hemoglobin A1c (<=6.0) % Phosphorus 5.1 H (2.5-4.5) mg/dL Transferrin (204.0-354.0) mg/dL Ferritin (10.0-291.0) ng/mL Total Protein 6.2 L (6.3-8.2) g/dL Assessment and Plan Plan: Assessment: 1. End-stage renal disease maintained on hemodialysis on Wednesday schedule. AV graft is being used outpatient. Still has permacath. 2. Hypertensive emergency status post nitroglycerin drip. Improved. 3. Acute hypoxic respiratory failure. 4. Volume overload. Improved with UF. 5. Diabetes mellitus. 6. Chronic kidney disease mineral bone disease. On PhosLo. 7. Anemia of chronic kidney disease. Iron replete. On Aranesp. 8. Hypervolemic hyponatremia. Better. Plan: Currently seen while undergoing hemodialysis. Next treatment . Challenge ultrafiltration. Add Aranesp. Blood glucose control. 1500 cc fluid restriction. DC permacath as AV graft being used and functioning well. Vascular surgery will be notified.
[2025-01-23 11:36] LABS: Glucose,Whole Blood 182 mg/dL (70-110)
[2025-01-23] MEDS: polyethylene glycoL 3350 17 GM POWD.PACK PO SCH (11:39)
--- NOTE | 2025-01-23 12:17 | P.GSCN ---
History of Present Illness Consult date: 01/23/25 Reason for Consult: Tunnel catheter removal Requesting physician: Gary Andrade History of present illness: This is a 34-year-old female with multiple comorbidities including diabetes mellitus, end-stage renal disease on hemodialysis and hypertension who presented to the emergency department 2 days ago with complaints of shortness of breath and cough. Apparently patient was admitted for pulmonary edema and acute hypoxic respiratory failure. Patient reportedly did not miss any of her hemodialysis treatments. She has a left upper extremity forearm loop graft as well as a right IJ tunnel catheter. Vascular surgery was consulted for tunnel catheter removal. Hemodialysis is accessed through the loop graft and tunneled catheter is no longer needed. Patient was scheduled on 01/10/2025 for outpatient removal of her tunneled catheter however patient never showed up, never answered her phone or return any messages. Patient states she is scheduled as an outpatient to have her tunneled catheter removed tomorrow, however this does not appear to be scheduled currently. Left upper extremity graft working well. Patient is currently undergoing hemodialysis at this time from left upper extremity loop graft. Patient states her breathing has improved, no chest pain, fevers or chills. Oxygen saturation is 98 to 99% on 2 L nasal cannula. 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 Past Anesthesia/Blood Transfusion Reactions: Previous Problems w/ Anesthesia Additional Past Anesthesia/Blood Transfusion Reaction / Comm: confusion Past Psychological History: Anxiety, Depression Smoking Status: Current every day smoker Past Alcohol Use History: None Reported Past Drug Use History: Marijuana - Past Family History Father History Unknown: Yes Family Medical History: Unable to Obtain Mother History Unknown: Yes Family Medical History: No Reported History Grandfather History Unknown: Yes Family Medical History: Coronary Artery Disease (CAD) Additional Family Medical History / Comment(s): Diabetes mellitus type 2 Medications and Allergies Home Medications Medication Instructions Recorded Confirmed Type Docusate [Colace] 100 mg PO DAILY@0800 02/05/24 01/22/25 History Lidocaine 4% Patch 1 patch TOPICAL DAILY@79902/05/24 01/22/25 History Magnesium Hydroxide [Milk of 7,200 mg PO DAILY PRN 02/05/24 01/22/25 History Magnesia Concentrate] Ipratropium-Albuterol Nebulize 3 ml INHALATION RT-TID PRN each 02/14/24 01/22/25 Rx [Duoneb 0.5 mg-3 mg/3 ml Soln] polyethylene glycoL 3350 [Miralax] 17 gm PO AC-LUNCH #527 gm 02/14/24 01/22/25 Rx Acetaminophen [Tylenol] 650 mg PO Q4H PRN 02/18/24 01/22/25 History Biotene Dry Mouth/Throat 10 ml PO BID PRN 02/18/24 01/22/25 History Melatonin 1 mg PO HS tab 02/25/24 01/22/25 Rx Butalb/APAP/Caff 50-325-40Mg 1 tab PO Q4HR PRN 03/14/24 01/22/25 History [Fioricet 50-325-40] Darbepoetin Artur [Aranesp] 40 mcg SQ MO 03/14/24 01/22/25 History Loratadine [Claritin] 5 mg PO DAILY tab 03/30/24 01/22/25 Rx Aspirin 81 mg PO DAILY@0800 #30 tab 05/18/24 01/22/25 Rx Famotidine [Pepcid] 20 mg PO BID #60 tab 07/11/24 01/22/25 Rx Levothyroxine Sodium [Synthroid] 175 mcg PO DAILY@0600 08/14/24 01/22/25 History Metoclopramide [Reglan] 5 mg PO AC-TID PRN 08/14/24 01/22/25 History Pantoprazole [Protonix] 40 mg PO DAILY@0600 08/14/24 01/22/25 History Sertraline [Zoloft] 200 mg PO DAILY@0800 08/14/24 01/22/25 History ALPRAZolam [Xanax] 0.25 mg PO BID PRN 09/04/24 01/22/25 History Calcium Acetate [PhosLo] 2,001 mg PO TID-W/MEALS 09/04/24 01/22/25 History Calcium Acetate [PhosLo] 667 mg PO DAILY PRN 09/04/24 01/22/25 History Colchicine [Colcrys] 0.3 mg PO DAILY #15 each 09/23/24 01/22/25 Rx Ondansetron Odt [Zofran ODT] 4 mg PO Q8HR PRN 11/02/24 01/22/25 History Atorvastatin [Lipitor] 40 mg PO HS #0 11/23/24 01/22/25 Rx oxyCODONE-APAP 10-325MG [Percocet 1 tab PO Q4HR PRN #18 tab 11/23/24 01/22/25 Rx 10-325 mg] Folic Acid/Vit B Complex and C 0.8 mg PO DAILY 12/20/24 01/22/25 History [Davina-Mayte Tablet] hydrALAZINE HCL [Apresoline] 100 mg PO TID 30 Days #90 tab 01/01/25 01/22/25 Rx traZODone HCL [Desyrel] 50 mg PO HS #20 tab 01/01/25 01/22/25 Rx Divalproex ER [Depakote ER] 500 mg PO BID@0800,1700 #60 tab 01/02/25 01/22/25 Rx Isosorbide Mononitrate ER [Imdur] 120 mg PO DAILY #60 tab 01/02/25 01/22/25 Rx Labetalol [Trandate] 500 mg PO BID 30 Days #150 tab 01/02/25 01/22/25 Rx NIFEdipine XL [Procardia XL] 60 mg PO BID 30 Days #60 tab 01/02/25 01/22/25 Rx Gabapentin [Neurontin] 100 mg PO BID 30 Days #60 cap 01/03/25 01/22/25 Rx Linagliptin [Tradjenta] 5 mg PO DAILY #30 tab 01/03/25 01/22/25 Rx Insulin Lispro [humaLOG Kwikpen] 8 unit SQ AC-TID 01/22/25 01/22/25 History Insulin Lispro [humaLOG Kwikpen] See Protocol SQ AC-TID 01/22/25 01/22/25 History cloNIDine HCL [Catapres] 0.3 mg PO TID 01/22/25 01/22/25 History Allergies Allergy/AdvReac Type Severity Reaction Status Date / Time hydromorphone HCl Allergy Anaphylaxis Verified 12/27/24 15:04 [From Dilaudid] propoxyphene Allergy Rash/Hives Verified 12/27/24 15:04 [From Darvocet-N] tramadol Allergy Anaphylaxis Verified 12/27/24 15:04 ibuprofen [From Motrin] AdvReac unable to Verified 12/27/24 15:04 take due to kidney disease venom-honey bee AdvReac passes out Verified 12/27/24 15:04 [bee venom (honey bee)] Surgical - Exam Vital Signs Temp Pulse Resp BP Pulse Ox 97.2 F L 87 24 231/131 100 01/21/25 20:21 01/21/25 20:21 01/21/25 20:21 01/21/25 20:21 01/21/25 20:21 General appearance: The patient is alert, oriented, appears in no acute distress. HET: Head is normocephalic and atraumatic. Pupils are equal and reactive. Neck: Supple. Chest: Right chest wall IJ tunnel catheter with dressing clean dry and intact. No surrounding erythema, swelling or drainage. Heart: Regular. Lungs: Equal expansion, normal respiratory effort. Abdomen: Soft, nontender, nondistended. Extremities: Normal skin color and turgor. Left upper extremity forearm loop graft. Neurological: No focal deficits. Alert and oriented. Results - Labs 01/23/25 09:30 01/23/25 09:30 Abnormal Lab Results - Last 24 Hours (Table) 01/22/25 01/22/25 01/22/25 Range/Units 07:14 07:14 12:16 WBC (3.8-10.6) k/uL RBC (3.80-5.40) m/uL Hgb (11.4-16.0) gm/dL Hct (34.0-46.0) % MCV (80.0-100.0) fL RDW (11.5-15.5) % Neutrophils # (1.3-7.7) k/uL Lymphocytes # (1.0-4.8) k/uL Sodium (137-145) mmol/L Chloride (98-107) mmol/L Carbon Dioxide (22-30) mmol/L BUN (7-17) mg/dL Creatinine (0.52-1.04) mg/dL Glucose (74-99) mg/dL POC Glucose (mg/dL) 231 H (70-110) mg/dL Hemoglobin A1c 9.8 H (<=6.0) % Phosphorus (2.5-4.5) mg/dL Transferrin 192.0 L (204.0-354.0) mg/dL Ferritin 909.0 H (10.0-291.0) ng/mL Total Protein (6.3-8.2) g/dL 01/22/25 01/22/25 01/23/25 Range/Units 16:47 20:23 06:03 WBC (3.8-10.6) k/uL RBC (3.80-5.40) m/uL Hgb (11.4-16.0) gm/dL Hct (34.0-46.0) % MCV (80.0-100.0) fL RDW (11.5-15.5) % Neutrophils # (1.3-7.7) k/uL Lymphocytes # (1.0-4.8) k/uL Sodium (137-145) mmol/L Chloride (98-107) mmol/L Carbon Dioxide (22-30) mmol/L BUN (7-17) mg/dL Creatinine (0.52-1.04) mg/dL Glucose (74-99) mg/dL POC Glucose (mg/dL) 200 H 177 H 275 H (70-110) mg/dL Hemoglobin A1c (<=6.0) % Phosphorus (2.5-4.5) mg/dL Transferrin (204.0-354.0) mg/dL Ferritin (10.0-291.0) ng/mL Total Protein (6.3-8.2) g/dL 01/23/25 01/23/25 01/23/25 Range/Units 09:30 09:30 11:35 WBC 10.7 H (3.8-10.6) k/uL RBC 2.61 L (3.80-5.40) m/uL Hgb 8.3 L (11.4-16.0) gm/dL Hct 26.3 L (34.0-46.0) % MCV 100.8 H (80.0-100.0) fL RDW 17.8 H (11.5-15.5) % Neutrophils # 8.5 H (1.3-7.7) k/uL Lymphocytes # 0.9 L (1.0-4.8) k/uL Sodium 129 L (137-145) mmol/L Chloride 88 L (98-107) mmol/L Carbon Dioxide 31 H (22-30) mmol/L BUN 29 H (7-17) mg/dL Creatinine 4.50 H (0.52-1.04) mg/dL Glucose 203 H (74-99) mg/dL POC Glucose (mg/dL) 182 H (70-110) mg/dL Hemoglobin A1c (<=6.0) % Phosphorus 5.1 H (2.5-4.5) mg/dL Transferrin (204.0-354.0) mg/dL Ferritin (10.0-291.0) ng/mL Total Protein 6.2 L (6.3-8.2) g/dL Diabetes panel 01/22/25 01/23/25 Range/Units 07:14 09:30 Sodium 129 L (137-145) mmol/L Potassium 3.9 (3.5-5.1) mmol/L Chloride 88 L (98-107) mmol/L Carbon Dioxide 31 H (22-30) mmol/L BUN 29 H (7-17) mg/dL Creatinine 4.50 H (0.52-1.04) mg/dL Glucose 203 H (74-99) mg/dL Hemoglobin A1c 9.8 H (<=6.0) % Calcium 9.3 (8.4-10.2) mg/dL AST 26 (14-36) U/L ALT 34 (4-34) U/L Alkaline Phosphatase 105 (38-126) U/L Total Protein 6.2 L (6.3-8.2) g/dL Albumin 3.7 (3.5-5.0) g/dL Calcium panel 01/23/25 Range/Units 09:30 Calcium 9.3 (8.4-10.2) mg/dL Phosphorus 5.1 H (2.5-4.5) mg/dL Albumin 3.7 (3.5-5.0) g/dL Pituitary panel 01/23/25 Range/Units 09:30 Sodium 129 L (137-145) mmol/L Potassium 3.9 (3.5-5.1) mmol/L Chloride 88 L (98-107) mmol/L Carbon Dioxide 31 H (22-30) mmol/L BUN 29 H (7-17) mg/dL Creatinine 4.50 H (0.52-1.04) mg/dL Glucose 203 H (74-99) mg/dL Calcium 9.3 (8.4-10.2) mg/dL Adrenal panel 01/23/25 Range/Units 09:30 Sodium 129 L (137-145) mmol/L Potassium 3.9 (3.5-5.1) mmol/L Chloride 88 L (98-107) mmol/L Carbon Dioxide 31 H (22-30) mmol/L BUN 29 H (7-17) mg/dL Creatinine 4.50 H (0.52-1.04) mg/dL Glucose 203 H (74-99) mg/dL Calcium 9.3 (8.4-10.2) mg/dL Total Bilirubin 0.8 (0.2-1.3) mg/dL AST 26 (14-36) U/L ALT 34 (4-34) U/L Alkaline Phosphatase 105 (38-126) U/L Total Protein 6.2 L (6.3-8.2) g/dL Albumin 3.7 (3.5-5.0) g/dL Assessment and Plan Assessment: 1. End-stage renal disease on hemodialysis with functioning left upper extremity loop graft 2. Right IJ tunneled hemodialysis catheter, not being used Plan: 1. N.p.o. after midnight, patient may have light breakfast like toast or oatmeal prior to 5 AM. Then n.p.o. 2. Patient will be scheduled for tunnel catheter removal tomorrow Thank you for this consultation, we will continue to follow. The impression and plan of care has been dictated as directed. Dr.Thelma La O I performed a history and examination of this patient, discussed the same with the dictator. I agree with the dictator's note ,documented as a scribe. Any additional findings or plans will be noted.
--- NOTE | 2025-01-23 13:17 | P.HPIM ---
History of Present Illness H&P Date: 01/23/25 Hospital Course: Patient is a 34-year-old female with history of type 2 diabetes melitis, GERD, hypertension, ESRD on hemodialysis (M, T, T, S), hypothyroidism presents to the ER with complaint of shortness of breath that began on evening of 01/21/2025. Patient reports that she did not miss her dialysis session. Her dialysis output is anywhere between 4 to 5 L per session. She has been experiencing cough since couple weeks which is associated with small amount of brown-colored sputum. She has been endorsing some chills and night sweats. Patient denies any sick contacts. Initial lab evaluation shows WBC of 9.1, RBC 3.12, hemoglobin 9.7, hematocrit 31.4, MCV 100.5, platelet count 379, neutrophil count 7.3, PT 12.5, INR, 1.2, 8. 3.4, sodium 129, potassium 4.7, chloride 85, bicarb 28, BUN 39, creatinine 5.18, EGFR 10, glucose 428, plasma lactic acid 1.3, calcium 8.9, total bili 1.0, AST 38, ALT 50, ALP 147, troponin I 0.015, NT proBNP 186707, albumin 4.1, influenza type A/B, RSV and COVID-19 is negative. Chest x-ray interpreted independently shows bilateral pulmonary edema. EKG i nterpreted independently shows normal sinus rhythm ventricular rate 87 bpm, AK interval 138 ms, QRS duration 89 ms, QTc 450 ms which is borderline prolonged. Vitals on arrival temperature 97.2 F, pulse rate 87, respirate 24, blood pressure 231/131, oxygen saturation 100 on nonrebreather with low O2 flow rate of 15. Subjective: Patient seen and examined at the bedside. No acute events overnight. Patient is reporting mild nausea. At the time of interview patient is undergoing hemodialysis session. All Systems reviewed and pertinent positives and negatives noted in HPI, all other symptoms are negative Objective: Vital signs reviewed. General: non toxic, no distress, appears at stated age, normal weight Derm: no unusual rashes/lesions, warm Head: atraumatic, normocephalic, symmetric Eyes: EOMI, no lid lag, anicteric sclera, pupils equal round reactive to light ENT: Nose and ears atraumatic Neck: No cervical lymphadenopathy, trachea midline, supple Mouth: no lip lesion, mucus membranes moist Cardiovascular: S1S2 reg, no murmur, positive dorsalis pedis pulse bilateral, no edema, right chest wall IJ tunneled catheter with dressing looks clean dry and intact Lungs: CTA bilateral, no rhonchi, no rales, no accessory muscle use Abdominal: soft, nontender to palpation, no guarding Ext: muscle strength 5 out of 5 in all 4 extremities grossly, no gross muscle atrophy, no contractures, Neuro: CN II-XI grossly intact, no gross focal neuro deficits Psych: Alert, oriented, appropriate affect Data reviewed today: Pertinent Labs: WBC 10.7, hemoglobin 8.3, MCV 100.8, sodium 129, chloride 88, bicarb 31, BUN 29, creatinine 4.50, EGFR 12, glucose 182, phosphorus 5.1 Images: No new imaging today. 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 twice daily, labetalol 500 g p.o. twice daily hydralazine 100 mg p.o. 3 times daily clonidine 0.3 mg p.o. 3 times daily Continue with Aranesp 40 mcg subcu at HD #Anemia of chronic disease Iron studies: Iron 66, TIBC 269, percent saturation 24.54, transferrin 192, ferritin 909 # Type 2 diabetes mellitus, uncontrolled Accu-Cheks and sliding scale HbA1c 9.8% Order Lantus 6 units in a.m. and 6 units in p.m. Resume Humalog 8 units 3 times daily with meals Monitor for hypoglycemia Chronic: #Hyperlipidemia #GERD #Anxiety and depression Resume trazodone 50 mg p.o. at bedtime, Zoloft 200 mg p.o. daily, pantoprazole 40 mg p.o. daily, Percocet 103 25 1 p.o. every 4 hours as needed, Synthroid 175 mcg p.o. daily, Imdur 120 mg p.o. daily gabapentin 100 mg p.o. twice daily Pepcid 20 mg p.o. twice daily DVT prophylaxis: SCDs GI prophylaxis: Pantoprazole 40 mg p.o. daily F: None E: Replete as needed N: Renal diet A: Ambulatory at baseline CODE STATUS: Full code Discussed with: Patient Anticipated discharge place: Pending clinical course Dictation was produced using [employer] dictation software. Please excuse any grammatical, word or spelling errors. 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 Past Anesthesia/Blood Transfusion Reactions: Previous Problems w/ Anesthesia Additional Past Anesthesia/Blood Transfusion Reaction / Comment(s): confusion Past Psychological History: Anxiety, Depression Smoking Status: Current every day smoker Past Alcohol Use History: None Reported Past Drug Use History: Marijuana - Past Family History Father History Unknown: Yes Family Medical History: Unable to Obtain Mother History Unknown: Yes Family Medical History: No Reported History Grandfather History Unknown: Yes Family Medical History: Coronary Artery Disease (CAD) Additional Family Medical History / Comment(s): Diabetes mellitus type 2 Medications and Allergies Home Medications Medication Instructions Recorded Confirmed Type Docusate [Colace] 100 mg PO DAILY@00 02/05/24 01/22/25 History Lidocaine 4% Patch 1 patch TOPICAL DAILY@79902/05/24 01/22/25 History Magnesium Hydroxide [Milk of 7,200 mg PO DAILY PRN 02/05/24 01/22/25 History Magnesia Concentrate] Ipratropium-Albuterol Nebulize 3 ml INHALATION RT-TID PRN each 02/14/24 01/22/25 Rx [Duoneb 0.5 mg-3 mg/3 ml Soln] polyethylene glycoL 3350 [Miralax] 17 gm PO AC-LUNCH #527 gm 02/14/24 01/22/25 Rx Acetaminophen [Tylenol] 650 mg PO Q4H PRN 02/18/24 01/22/25 History Biotene Dry Mouth/Throat 10 ml PO BID PRN 02/18/24 01/22/25 History Melatonin 1 mg PO HS tab 02/25/24 01/22/25 Rx Butalb/APAP/Caff 50-325-40Mg 1 tab PO Q4HR PRN 03/14/24 01/22/25 History [Fioricet 50-325-40] Darbepoetin Artur [Aranesp] 40 mcg SQ MO 03/14/24 01/22/25 History Loratadine [Claritin] 5 mg PO DAILY tab 03/30/24 01/22/25 Rx Aspirin 81 mg PO DAILY@0800 #30 tab 05/18/24 01/22/25 Rx Famotidine [Pepcid] 20 mg PO BID #60 tab 07/11/24 01/22/25 Rx Levothyroxine Sodium [Synthroid] 175 mcg PO DAILY@59908/14/24 01/22/25 History Metoclopramide [Reglan] 5 mg PO AC-TID PRN 08/14/24 01/22/25 History Pantoprazole [Protonix] 40 mg PO DAILY@59908/14/24 01/22/25 History Sertraline [Zoloft] 200 mg PO DAILY@00 08/14/24 01/22/25 History ALPRAZolam [Xanax] 0.25 mg PO BID PRN 09/04/24 01/22/25 History Calcium Acetate [PhosLo] 2,001 mg PO TID-W/MEALS 09/04/24 01/22/25 History Calcium Acetate [PhosLo] 667 mg PO DAILY PRN 09/04/24 01/22/25 History Colchicine [Colcrys] 0.3 mg PO DAILY #15 each 09/23/24 01/22/25 Rx Ondansetron Odt [Zofran ODT] 4 mg PO Q8HR PRN 11/02/24 01/22/25 History Atorvastatin [Lipitor] 40 mg PO HS #0 11/23/24 01/22/25 Rx oxyCODONE-APAP 10-325MG [Percocet 1 tab PO Q4HR PRN #18 tab 11/23/24 01/22/25 Rx 10-325 mg] Folic Acid/Vit B Complex and C 0.8 mg PO DAILY 12/20/24 01/22/25 History [Davina-Mayte Tablet] hydrALAZINE HCL [Apresoline] 100 mg PO TID 30 Days #90 tab 01/01/25 01/22/25 Rx traZODone HCL [Desyrel] 50 mg PO HS #20 tab 01/01/25 01/22/25 Rx Divalproex ER [Depakote ER] 500 mg PO BID@0800,1700 #60 tab 01/02/25 01/22/25 Rx Isosorbide Mononitrate ER [Imdur] 120 mg PO DAILY #60 tab 01/02/25 01/22/25 Rx Labetalol [Trandate] 500 mg PO BID 30 Days #150 tab 01/02/25 01/22/25 Rx NIFEdipine XL [Procardia XL] 60 mg PO BID 30 Days #60 tab 01/02/25 01/22/25 Rx Gabapentin [Neurontin] 100 mg PO BID 30 Days #60 cap 01/03/25 01/22/25 Rx Linagliptin [Tradjenta] 5 mg PO DAILY #30 tab 01/03/25 01/22/25 Rx Insulin Lispro [humaLOG Kwikpen] 8 unit SQ AC-TID 01/22/25 01/22/25 History Insulin Lispro [humaLOG Kwikpen] See Protocol SQ AC-TID 01/22/25 01/22/25 History cloNIDine HCL [Catapres] 0.3 mg PO TID 01/22/25 01/22/25 History Allergies Allergy/AdvReac Type Severity Reaction Status Date / Time hydromorphone HCl Allergy Anaphylaxis Verified 12/27/24 15:04 [From Dilaudid] propoxyphene Allergy Rash/Hives Verified 12/27/24 15:04 [From Darvocet-N] tramadol Allergy Anaphylaxis Verified 12/27/24 15:04 ibuprofen [From Motrin] AdvReac unable to Verified 12/27/24 15:04 take due to kidney disease venom-honey bee AdvReac passes out Verified 12/27/24 15:04 [bee venom (honey bee)] Physical Exam Vitals: Vital Signs Temp Pulse Pulse Resp BP BP Pulse Ox 01/23/25 12:00 79 18 129/70 98 01/23/25 09:11 01/23/25 08:00 97.8 F 82 20 146/80 99 01/23/25 04:00 97.9 F 74 19 149/83 100 01/22/25 23:51 98.3 F 74 18 147/79 99 01/22/25 20:55 98.0 F 84 18 170/83 98 01/22/25 18:10 98.4 F 85 16 185/95 100 01/22/25 17:49 98 F 81 18 183/96 97 01/22/25 15:50 78 15 190/99 96 01/22/25 15:33 98 F 81 16 213/100 01/22/25 13:31 98 F 81 16 211/104 97 FiO2 01/23/25 12:00 01/23/25 09:11 40 01/23/25 08:00 01/23/25 04:00 01/22/25 23:51 01/22/25 20:55 01/22/25 18:10 01/22/25 17:49 01/22/25 15:50 01/22/25 15:33 01/22/25 13:31 Intake and Output 01/22/25 01/23/25 01/23/25 22:59 06:59 14:59 Intake Total 400 Output Total 8400 Balance -8000 Intake: Hemodialysis 400 Output: Hemodialysis 4400 Hemodialysis Net Amount 4000 Other: Weight 59.874 kg 64.9 kg Results CBC & Chem 7: 01/23/25 09:30 01/23/25 09:30 Labs: Abnormal Lab Results - Last 24 Hours (Table) 01/22/25 01/22/25 01/22/25 Range/Units 07:14 07:14 16:47 WBC (3.8-10.6) k/uL RBC (3.80-5.40) m/uL Hgb (11.4-16.0) gm/dL Hct (34.0-46.0) % MCV (80.0-100.0) fL RDW (11.5-15.5) % Neutrophils # (1.3-7.7) k/uL Lymphocytes # (1.0-4.8) k/uL Sodium (137-145) mmol/L Chloride (98-107) mmol/L Carbon Dioxide (22-30) mmol/L BUN (7-17) mg/dL Creatinine (0.52-1.04) mg/dL Glucose (74-99) mg/dL POC Glucose (mg/dL) 200 H (70-110) mg/dL Hemoglobin A1c 9.8 H (<=6.0) % Phosphorus (2.5-4.5) mg/dL Transferrin 192.0 L (204.0-354.0) mg/dL Ferritin 909.0 H (10.0-291.0) ng/mL Total Protein (6.3-8.2) g/dL 01/22/25 01/23/25 01/23/25 Range/Units 20:23 06:03 09:30 WBC 10.7 H (3.8-10.6) k/uL RBC 2.61 L (3.80-5.40) m/uL Hgb 8.3 L (11.4-16.0) gm/dL Hct 26.3 L (34.0-46.0) % MCV 100.8 H (80.0-100.0) fL RDW 17.8 H (11.5-15.5) % Neutrophils # 8.5 H (1.3-7.7) k/uL Lymphocytes # 0.9 L (1.0-4.8) k/uL Sodium (137-145) mmol/L Chloride (98-107) mmol/L Carbon Dioxide (22-30) mmol/L BUN (7-17) mg/dL Creatinine (0.52-1.04) mg/dL Glucose (74-99) mg/dL POC Glucose (mg/dL) 177 H 275 H (70-110) mg/dL Hemoglobin A1c (<=6.0) % Phosphorus (2.5-4.5) mg/dL Transferrin (204.0-354.0) mg/dL Ferritin (10.0-291.0) ng/mL Total Protein (6.3-8.2) g/dL 01/23/25 01/23/25 Range/Units 09:30 11:35 WBC (3.8-10.6) k/uL RBC (3.80-5.40) m/uL Hgb (11.4-16.0) gm/dL Hct (34.0-46.0) % MCV (80.0-100.0) fL RDW (11.5-15.5) % Neutrophils # (1.3-7.7) k/uL Lymphocytes # (1.0-4.8) k/uL Sodium 129 L (137-145) mmol/L Chloride 88 L (98-107) mmol/L Carbon Dioxide 31 H (22-30) mmol/L BUN 29 H (7-17) mg/dL Creatinine 4.50 H (0.52-1.04) mg/dL Glucose 203 H (74-99) mg/dL POC Glucose (mg/dL) 182 H (70-110) mg/dL Hemoglobin A1c (<=6.0) % Phosphorus 5.1 H (2.5-4.5) mg/dL Transferrin (204.0-354.0) mg/dL Ferritin (10.0-291.0) ng/mL Total Protein 6.2 L (6.3-8.2) g/dL
--- NOTE | 2025-01-23 16:06 | P.PN ---
Subjective Progress Note Date: 01/23/25 Hospital Course: Patient is a 34-year-old female with history of type 2 diabetes melitis, GERD, hypertension, ESRD on hemodialysis (M, T, T, S), hypothyroidism presents to the ER with complaint of shortness of breath that began on evening of 01/21/2025. Patient reports that she did not miss her dialysis session. Her dialysis output is anywhere between 4 to 5 L per session. She has been experiencing cough since couple weeks which is associated with small amount of brown-colored sputum. She has been endorsing some chills and night sweats. Patient denies any sick contacts. Initial lab evaluation shows WBC of 9.1, RBC 3.12, hemoglobin 9.7, hematocrit 31.4, MCV 100.5, platelet count 379, neutrophil count 7.3, PT 12.5, INR, 1.2, 8. 3.4, sodium 129, potassium 4.7, chloride 85, bicarb 28, BUN 39, creatinine 5.18, EGFR 10, glucose 428, plasma lactic acid 1.3, calcium 8.9, total bili 1.0, AST 38, ALT 50, ALP 147, troponin I 0.015, NT proBNP [id number], albumin 4.1, influenza type A/B, RSV and COVID-19 is negative. Chest x-ray interpreted independently shows bilateral pulmonary edema. EKG interpreted independently shows normal sinus rhythm ventricular rate 87 bpm, GA interval 138 ms, QRS duration 89 ms, QTc 450 ms which is borderline prolonged. Vitals on arrival temperature 97.2 F, pulse rate 87, respirate 24, blood pressure 231/131, oxygen saturation 100 on nonrebreather with low O2 flow rate of 15. Subjective: Patient seen and examined at the bedside. No acute events overnight. Patient is reporting mild nausea. At the time of interview patient is undergoing hemodialysis session. All Systems reviewed and pertinent positives and negatives noted in HPI, all other symptoms are negative Objective: Vital signs reviewed. General: non toxic, no distress, appears at stated age, normal weight Derm: no unusual rashes/lesions, warm Head: atraumatic, normocephalic, symmetric Eyes: EOMI, no lid lag, anicteric sclera, pupils equal round reactive to light ENT: Nose and ears atraumatic Neck: No cervical lymphadenopathy, trachea midline, supple Mouth: no lip lesion, mucus membranes moist Cardiovascular: S1S2 reg, no murmur, positive dorsalis pedis pulse bilateral, no edema, right chest wall IJ tunneled catheter with dressing looks clean dry and intact Lungs: CTA bilateral, no rhonchi, no rales, no accessory muscle use Abdominal: soft, nontender to palpation, no guarding Ext: muscle strength 5 out of 5 in all 4 extremities grossly, no gross muscle atrophy, no contractures, Neuro: CN II-XI grossly intact, no gross focal neuro deficits Psych: Alert, oriented, appropriate affect Data reviewed today: Pertinent Labs: WBC 10.7, hemoglobin 8.3, MCV 100.8, sodium 129, chloride 88, bicarb 31, BUN 29, creatinine 4.50, EGFR 12, glucose 182, phosphorus 5.1 Images: No new imaging today. 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 twice daily, labetalol 500 g p.o. twice daily hydralazine 100 mg p.o. 3 times daily clonidine 0.3 mg p.o. 3 times daily Continue with Aranesp 40 mcg subcu at HD #Anemia of chronic disease Iron studies: Iron 66, TIBC 269, percent saturation 24.54, transferrin 192, ferritin 909 # Type 2 diabetes mellitus, uncontrolled Accu-Cheks and sliding scale HbA1c 9.8% Order Lantus 6 units in a.m. and 6 units in p.m. Resume Humalog 8 units 3 times daily with meals Monitor for hypoglycemia Chronic: #Hyperlipidemia #GERD #Anxiety and depression Resume trazodone 50 mg p.o. at bedtime, Zoloft 200 mg p.o. daily, pantoprazole 40 mg p.o. daily, Percocet 103 25 1 p.o. every 4 hours as needed, Synthroid 175 mcg p.o. daily, Imdur 120 mg p.o. daily gabapentin 100 mg p.o. twice daily Pepcid 20 mg p.o. twice daily DVT prophylaxis: SCDs GI prophylaxis: Pantoprazole 40 mg p.o. daily F: None E: Replete as needed N: Renal diet A: Ambulatory at baseline CODE STATUS: Full code Discussed with: Patient Anticipated discharge place: Pending clinical course Dictation was produced using [email or web address] dictation software. Please excuse any grammatical, word or spelling errors. Attestation I have seen and examined this patient with my resident , discussed the same with the resident/ANTHONY, and agree with the dictator's assessment and plan as written GENERAL: The patient is alert and oriented x3, ill looking HEENT: Pupils are round and equally reacting to light. EOMI. No scleral icterus. No conjunctival pallor. Normocephalic, atraumatic. No pharyngeal erythema. No thyromegaly. CARDIOVASCULAR: S1 and S2 present. No murmurs, rubs, or gallops. PULMONARY: Chest is clear to auscultation, no wheezing or crackles. ABDOMEN: Soft, nontender, nondistended, normoactive bowel sounds. No palpable organomegaly. MUSCULOSKELETAL: No joint swelling or deformity. EXTREMITIES: No cyanosis, clubbing, 1+ pitting edema of lower extremities b ilaterally NEUROLOGICAL: Gross neurological examination did not reveal any focal deficits. SKIN: No rashes. Dr. Getachew son Objective - Vital Signs Vital signs: Vital Signs Temp 97.8 F 01/23/25 08:00 Pulse 79 01/23/25 12:00 Resp 18 01/23/25 12:00 BP 129/70 01/23/25 12:00 Pulse Ox 98 01/23/25 12:00 FiO2 40 01/23/25 09:11 Intake & Output 01/22/25 01/23/25 01/23/25 18:59 06:59 18:59 Intake Total 400 Output Total 8400 Balance -8000 Weight 59.874 kg 64.9 kg Intake: Hemodialysis 400 Output: Hemodialysis 4400 Hemodialysis Net Amount 4000 - Labs CBC & Chem 7: 01/24/25 06:12 01/24/25 06:12 Labs: Abnormal Lab Results - Last 24 Hours (Table) 03/09/0801/22/25 01/22/25 Range/Units 07:14 16:47 20:23 WBC (3.8-10.6) k/uL RBC (3.80-5.40) m/uL Hgb (11.4-16.0) gm/dL Hct (34.0-46.0) % MCV (80.0-100.0) fL RDW (11.5-15.5) % Neutrophils # (1.3-7.7) k/uL Lymphocytes # (1.0-4.8) k/uL Sodium (137-145) mmol/L Chloride (98-107) mmol/L Carbon Dioxide (22-30) mmol/L BUN (7-17) mg/dL Creatinine (0.52-1.04) mg/dL Glucose (74-99) mg/dL POC Glucose (mg/dL) 200 H 177 H (70-110) mg/dL Hemoglobin A1c 9.8 H (<=6.0) % Phosphorus (2.5-4.5) mg/dL Total Protein (6.3-8.2) g/dL 01/23/25 01/23/25 01/23/25 Range/Units 06:03 09:30 09:30 WBC 10.7 H (3.8-10.6) k/uL RBC 2.61 L (3.80-5.40) m/uL Hgb 8.3 L (11.4-16.0) gm/dL Hct 26.3 L (34.0-46.0) % MCV 100.8 H (80.0-100.0) fL RDW 17.8 H (11.5-15.5) % Neutrophils # 8.5 H (1.3-7.7) k/uL Lymphocytes # 0.9 L (1.0-4.8) k/uL Sodium 129 L (137-145) mmol/L Chloride 88 L (98-107) mmol/L Carbon Dioxide 31 H (22-30) mmol/L BUN 29 H (7-17) mg/dL Creatinine 4.50 H (0.52-1.04) mg/dL Glucose 203 H (74-99) mg/dL POC Glucose (mg/dL) 275 H (70-110) mg/dL Hemoglobin A1c (<=6.0) % Phosphorus 5.1 H (2.5-4.5) mg/dL Total Protein 6.2 L (6.3-8.2) g/dL 01/23/25 Range/Units 11:35 WBC (3.8-10.6) k/uL RBC (3.80-5.40) m/uL Hgb (11.4-16.0) gm/dL Hct (34.0-46.0) % MCV (80.0-100.0) fL RDW (11.5-15.5) % Neutrophils # (1.3-7.7) k/uL Lymphocytes # (1.0-4.8) k/uL Sodium (137-145) mmol/L Chloride (98-107) mmol/L Carbon Dioxide (22-30) mmol/L BUN (7-17) mg/dL Creatinine (0.52-1.04) mg/dL Glucose (74-99) mg/dL POC Glucose (mg/dL) 182 H (70-110) mg/dL Hemoglobin A1c (<=6.0) % Phosphorus (2.5-4.5) mg/dL Total Protein (6.3-8.2) g/dL
[2025-01-23 16:14] LABS: Glucose,Whole Blood 243 mg/dL (70-110)
[2025-01-23] MEDS: LACTATED RINGERS 1,000 ML IV SCH (17:50)
[2025-01-23 20:28] LABS: Glucose,Whole Blood 172 mg/dL (70-110)
[2025-01-24 05:52] LABS: Glucose,Whole Blood 245 mg/dL (70-110)
[2025-01-24 06:44] LABS: Anisocytosis Slight; Basophils # (A) 0.1 k/uL (0-0.2); Basophils % (A) 1 %; Eosinophils # (A) 0.5 k/uL (0-0.7); Eosinophils % (A) 7 %; HCT 26.9 % (34.0-46.0); HGB 7.9 gm/dL (11.4-16.0); Hypochromasia Moderate; Lymphocytes # (A) 1.1 k/uL (1.0-4.8); Lymphocytes % (A) 15 %; MCH 30.3 pg (25.0-35.0); MCHC 29.5 g/dL (31.0-37.0); MCV 102.6 fL (80.0-100.0); Macrocytosis Moderate; Mean Platelet Volume 7.2; Monocytes # (A) 0.4 k/uL (0-1.0); Monocytes % (A) 5 %; Neutrophils # (A) 5.5 k/uL (1.3-7.7); Neutrophils % (A) 71 %; Platelet Count 287 k/uL (150-450); RBC 2.63 m/uL (3.80-5.40); RDW 17.7 % (11.5-15.5); WBC 7.7 k/uL (3.8-10.6)
[2025-01-24 06:54] LABS: African American GFR (CKD) 20 (>60 ml/min/1.73 sqM); Anion Gap 12 mmol/L; Blood Urea Nitrogen 16 mg/dL (7-17); Carbon Dioxide 29 mmol/L (22-30); Chloride 91 mmol/L (98-107); Glucose 208 mg/dL (74-99); Magnesium 1.9 mg/dL (1.6-2.3); Non-African American GFR(CKD) 17 (>60 ml/min/1.73 sqM); Phosphorus 4.5 mg/dL (2.5-4.5); Potassium 4.1 mmol/L (3.5-5.1); Sodium 132 mmol/L (137-145)
[2025-01-24] MEDS ORDERED: fentaNYL (PF) 50 MCG/ML 2 ML AMP IV PRN (07:00)
[2025-01-24 07:31] LABS: HCG,Qualitative Serum Not Detected
--- NOTE | 2025-01-24 10:09 | P.PN ---
Subjective Patient is seen in follow-up for end-stage renal disease. She is maintained on hemodialysis Wednesday. No active complaints. Permacath to be removed today. Vital signs are stable. General: No acute distress. HEENT: Head exam is unremarkable. On nasal cannula. LUNGS: No audible rhonchi or wheezes. HEART: Rate and Rhythm are regular. ABDOMEN: Nontender. EXTREMITITES: No edema. Objective - Vital Signs Vital signs: Vital Signs Temp 97.9 F 01/24/25 04:19 Pulse 80 01/24/25 04:19 Resp 16 01/24/25 04:19 BP 125/73 01/24/25 04:19 Pulse Ox 99 01/24/25 04:19 FiO2 40 01/23/25 09:11 Intake & Output 01/23/25 01/24/25 01/24/25 18:59 06:59 18:59 Intake Total 1020 420 Output Total 8400 Balance 1020 -7980 Weight 66.9 kg Intake: IV 20 Invasive Line 2 20 Oral 1020 Hemodialysis 400 Output: Hemodialysis 4400 Hemodialysis Net Amount 4000 - Labs CBC & Chem 7: 01/24/25 06:12 01/24/25 06:12 Labs: Abnormal Lab Results - Last 24 Hours (Table) 01/23/25 01/23/25 01/23/25 Range/Units 09:30 11:35 16:13 RBC (3.80-5.40) m/uL Hgb (11.4-16.0) gm/dL Hct (34.0-46.0) % MCV (80.0-100.0) fL MCHC (31.0-37.0) g/dL RDW (11.5-15.5) % Sodium 129 L (137-145) mmol/L Chloride 88 L (98-107) mmol/L Carbon Dioxide 31 H (22-30) mmol/L BUN 29 H (7-17) mg/dL Creatinine 4.50 H (0.52-1.04) mg/dL Glucose 203 H (74-99) mg/dL POC Glucose (mg/dL) 182 H 243 H (70-110) mg/dL Phosphorus 5.1 H (2.5-4.5) mg/dL Total Protein 6.2 L (6.3-8.2) g/dL 01/23/25 01/24/25 01/24/25 Range/Units 20:19 05:51 06:12 RBC 2.63 L (3.80-5.40) m/uL Hgb 7.9 L (11.4-16.0) gm/dL Hct 26.9 L (34.0-46.0) % MCV 102.6 H (80.0-100.0) fL MCHC 29.5 L (31.0-37.0) g/dL RDW 17.7 H (11.5-15.5) % Sodium (137-145) mmol/L Chloride (98-107) mmol/L Carbon Dioxide (22-30) mmol/L BUN (7-17) mg/dL Creatinine (0.52-1.04) mg/dL Glucose (74-99) mg/dL POC Glucose (mg/dL) 172 H 245 H (70-110) mg/dL Phosphorus (2.5-4.5) mg/dL Total Protein (6.3-8.2) g/dL 01/24/25 Range/Units 06:12 RBC (3.80-5.40) m/uL Hgb (11.4-16.0) gm/dL Hct (34.0-46.0) % MCV (80.0-100.0) fL MCHC (31.0-37.0) g/dL RDW (11.5-15.5) % Sodium 132 L (137-145) mmol/L Chloride 91 L (98-107) mmol/L Carbon Dioxide (22-30) mmol/L BUN (7-17) mg/dL Creatinine 3.32 H (0.52-1.04) mg/dL Glucose 208 H (74-99) mg/dL POC Glucose (mg/dL) (70-110) mg/dL Phosphorus (2.5-4.5) mg/dL Total Protein (6.3-8.2) g/dL Assessment and Plan Plan: Assessment: 1. End-stage renal disease maintained on hemodialysis on Wednesday schedule. AV graft is being used outpatient. Still has permacath. 2. Hypertensive emergency status post nitroglycerin drip. Improved. 3. Acute hypoxic respiratory failure. 4. Volume overload. Improved with UF. 5. Diabetes mellitus. 6. Chronic kidney disease mineral bone disease. On PhosLo. 7. Anemia of chronic kidney disease. Iron replete. On Aranesp. 8. Hypervolemic hyponatremia. Better. Plan: Hemodialysis tomorrow. Challenge ultrafiltration. Blood glucose control. 1500 cc fluid restriction. AV graft functioning well. Permacath to be removed today.
[2025-01-24 11:23] LABS: Glucose,Whole Blood 247 mg/dL (70-110)
[2025-01-24 11:57] VITALS: BMI 22.4
[2025-01-24 13:38] LABS: Glucose,Whole Blood 310 mg/dL (70-110)
[2025-01-24] MEDS: INSULIN LISPRO (HumaLOG) 100 UNIT/ML 10 mL VL SQ STA (13:51)
[2025-01-24] MEDS: IV FLUID CONTINUATION 500 ML IV ONE (14:00)
[2025-01-24] MEDS: ONDANSETRON 4 MG/2 ML VIAL IVP STA (14:00)
--- NOTE | 2025-01-24 14:07 | CDI ---
Documentation Clarification Form Date: 01/24/2025 12:32:00 PM From: Jeanne Whitmore RN, CCDS Phone: [phone] Admit Date: 01/22/2025 02:29:00 AM Patient Name: Marita Perrin Visit Number: [id number] Discharge Date: ATTENTION: The Clinical Documentation Specialists (CDI) and [facility] Coding Staff appreciate your assistance in clarifying documentation. Please respond to the clarification below the line at the bottom and electronically sign. The CDI & [facility] Coding staff will review the response and follow-up if needed. Please note: Queries are made part of the Legal Health Record. If you have any questions, please contact the author of this message via ITS. Doctor. Getachew Dacosta Your patient has documentation on 01/21/25 CXR findings of cardiomegaly and incipient congestive heart failure. Possible pulmonary edema. Based on this information and the findings below, is there an additional diagnosis that is clinically appropriate for this patient? Patient history/risk factors: End-stage renal disease on dialysis, Hypertension, Diabetes mellitus type 2 Clinical Indicators: 34-year-old female present with shortness of breath. She has ESRD on hemodialysis with output between 4 to 5 L per session. She has been compliant with her dialysis. 01/21 VS 231/252 68 3121.2 100% 15 % NRB BUN 30, Cr 5.18 BNP: [id number] ECHO (12/22/24) Left ventricular ejection fraction is estimated at 55-60%. Mildly increased septal wall thickness. Small to moderate amount of pericardial effusion without any evidence of tamponade Treatment: Hemodialysis (M, T, T, S) Per Nephrology management) 1500 cc fluid restriction. Is there an additional diagnosis that is clinically appropriate for this patient? [ ] Chronic Pulmonary Edema [x ] Acute Pulmonary Edema [ ] Acute Pulmonary Edema related to Acute CHF preserved EF [ ] No additional diagnosis/Not clinically significant [ ] Unable to determine [ ] Other, please specify (Template Last Revised: February 2023) VICTORINAD
[2025-01-24] MEDS ORDERED: PROPOFOL 10 MG/ML 20 ML VIAL IV ONE (14:14)
[2025-01-24] MEDS ORDERED: MIDAZOLAM 2 MG/2 ML VIAL ONE (14:14)
[2025-01-24] MEDS ORDERED: fentaNYL (PF) 50 MCG/ML 2 ML AMP ONE (14:14)
[2025-01-24] MEDS: LIDOCAINE 1% INJ 10MG/ML (20 ML MDV) SQ ONE (14:38)
[2025-01-24 15:14] LABS: Glucose,Whole Blood 255 mg/dL (70-110)
[2025-01-24 16:43] LABS: Glucose,Whole Blood 207 mg/dL (70-110)
--- NOTE | 2025-01-24 17:03 | P.PN ---
Subjective Progress Note Date: 01/24/25 Hospital Course: Patient is a 34-year-old female with history of type 2 diabetes melitis, GERD, hypertension, ESRD on hemodialysis (M, T, T, S), hypothyroidism presents to the ER with complaint of shortness of breath that began on evening of 01/21/2025. Patient reports that she did not miss her dialysis session. Her dialysis output is anywhere between 4 to 5 L per session. She has been experiencing cough since couple weeks which is associated with small amount of brown-colored sputum. She has been endorsing some chills and night sweats. Patient denies any sick contacts. Initial lab evaluation shows WBC of 9.1, RBC 3.12, hemoglobin 9.7, hematocrit 31.4, MCV 100.5, platelet count 379, neutrophil count 7.3, PT 12.5, INR, 1.2, 8. 3.4, sodium 129, potassium 4.7, chloride 85, bicarb 28, BUN 39, c reatinine 5.18, EGFR 10, glucose 428, plasma lactic acid 1.3, calcium 8.9, total bili 1.0, AST 38, ALT 50, ALP 147, troponin I 0.015, NT proBNP 607936, albumin 4.1, influenza type A/B, RSV and COVID-19 is negative. Chest x-ray interpreted independently shows bilateral pulmonary edema. EKG interpreted independently shows normal sinus rhythm ventricular rate 87 bpm, [place] interval 138 ms, QRS duration 89 ms, QTc 450 ms which is borderline prolonged. Vitals on arrival temperature 97.2 F, pulse rate 87, respirate 24, blood pressure 231/131, oxygen saturation 100 on nonrebreather with low O2 flow rate of 15. Subjective: Patient seen and examined at the bedside. No acute events overnight. Patient is reporting mild nausea. Patient to undergo tunneled catheter removal today. All Systems reviewed and pertinent positives and negatives noted in HPI, all other symptoms are negative Objective: Vital signs reviewed. General: non toxic, no distress, appears at stated age, normal weight Derm: no unusual rashes/lesions, warm Head: atraumatic, normocephalic, symmetric Eyes: EOMI, no lid lag, anicteric sclera, pupils equal round reactive to light ENT: Nose and ears atraumatic Neck: No cervical lymphadenopathy, trachea midline, supple Mouth: no lip lesion, mucus membranes moist Cardiovascular: S1S2 reg, no murmur, positive dorsalis pedis pulse bilateral, no edema, right chest wall IJ tunneled catheter with dressing looks clean dry and intact Lungs: CTA bilateral, no rhonchi, no rales, no accessory muscle use Abdominal: soft, nontender to palpation, no guarding Ext: muscle strength 5 out of 5 in all 4 extremities grossly, no gross muscle atrophy, no contractures, Neuro: CN II-XI grossly intact, no gross focal neuro deficits Psych: Alert, oriented, appropriate affect Data reviewed today: Pertinent Labs: WBC 7.7, hemoglobin 7.9, MCV 102.6, sodium 132, potassium 4.1, chloride 91, BUN 16, creatinine 3.32, glucose 207 Images: No new imaging today. Assessment and Plan: Active problem: #End-stage renal disease on hemodialysis, (M, T, T, S) #Hypervolemic hyponatremia, at baseline #Acute on chronic ELOINA #Pulmonary edema #Hypertensive emergency, resolved #Acute hypoxemic respiratory failure secondary to vascular congestion, on 2L via NC #Hyperphosphatemia, resolved Nephrology on board, appreciate recs; vascular surgery was consulted; tunneled catheter removal today Continue with hemodialysis, next session on Continue with renal diet Continue with cardiac tools administrator I's and O's and daily weights Order CBC and BMP Continue with oxygen therapy Continue with Procardia XL 60 mg p.o. twice daily, labetalol 500 g p.o. twice daily hydralazine 100 mg p.o. 3 times daily clonidine 0.3 mg p.o. 3 times daily Continue with Aranesp 40 mcg subcu at HD #Anemia of chronic disease Iron studies: Iron 66, TIBC 269, percent saturation 24.54, transferrin 192, ferritin 909 # Type 2 diabetes mellitus, uncontrolled Accu-Cheks and sliding scale HbA1c 9.8% Increase Lantus 8 units in a.m. and 8 units in p.m. Continue Humalog 8 units 3 times daily with meals Monitor for hypoglycemia Chronic: #Hyperlipidemia #GERD #Anxiety and depression Resume trazodone 50 mg p.o. at bedtime, Zoloft 200 mg p.o. daily, pantoprazole 40 mg p.o. daily, Percocet 103 25 1 p.o. every 4 hours as needed, Synthroid 175 mcg p.o. daily, Imdur 120 mg p.o. daily gabapentin 100 mg p.o. twice daily Pepcid 20 mg p.o. twice daily DVT prophylaxis: SCDs GI prophylaxis: Pantoprazole 40 mg p.o. daily F: None E: Replete as needed N: Renal diet A: Ambulatory at baseline CODE STATUS: Full code Discussed with: Patient Anticipated discharge place: Pending clinical course Dictation was produced using [employer] dictation software. Please excuse any grammatical, word or spelling errors. Attestation I have seen and examined this patient with my resident , discussed the same with the resident/ANTHONY, and agree with the dictator's assessment and plan as written GENERAL: The patient is alert and oriented x3, chronically ill looking HEENT: Pupils are round and equally reacting to light. EOMI. No scleral icterus. No conjunctival pallor. Normocephalic, atraumatic. No pharyngeal erythema. No thyromegaly. CARDIOVASCULAR: S1 and S2 present. No murmurs, rubs, or gallops. PULMONARY: Chest is clear to auscultation, no wheezing or crackles. ABDOMEN: Soft, nontender, nondistended, normoactive bowel sounds. No palpable organomegaly. MUSCULOSKELETAL: No joint swelling or deformity. EXTREMITIES: No cyanosis, 1+ pitting edema of lower extremity NEUROLOGICAL: Gross neurological examination did not reveal any focal deficits. SKIN: No rashes. Dr. Getachew son Objective - Vital Signs Vital signs: Vital Signs Temp 97.7 F 01/24/25 15:01 Pulse 82 01/24/25 15:45 Resp 16 01/24/25 15:45 BP 167/89 01/24/25 15:45 Pulse Ox 100 01/24/25 15:45 FiO2 40 01/23/25 09:11 Intake & Output 01/23/25 01/24/25 01/24/25 18:59 06:59 18:59 Intake Total 1020 420 220 Output Total 8400 1 Balance 1020 -7980 219 Weight 66.9 kg 66.9 kg Intake: IV 20 220 Invasive Line 2 20 20 Oral 1020 Hemodialysis 400 Output: Hemodialysis 4400 Hemodialysis Net Amount 4000 Estimated Blood Loss 1 - Labs CBC & Chem 7: 01/25/25 07:17 01/25/25 07:17 Labs: Abnormal Lab Results - Last 24 Hours (Table) 01/23/25 01/24/25 01/24/25 Range/Units 20:19 05:51 06:12 RBC 2.63 L (3.80-5.40) m/uL Hgb 7.9 L (11.4-16.0) gm/dL Hct 26.9 L (34.0-46.0) % MCV 102.6 H (80.0-100.0) fL MCHC 29.5 L (31.0-37.0) g/dL RDW 17.7 H (11.5-15.5) % Sodium (137-145) mmol/L Chloride (98-107) mmol/L Creatinine (0.52-1.04) mg/dL Glucose (74-99) mg/dL POC Glucose (mg/dL) 172 H 245 H (70-110) mg/dL 01/24/25 01/24/25 01/24/25 Range/Units 06:12 11:21 13:36 RBC (3.80-5.40) m/uL Hgb (11.4-16.0) gm/dL Hct (34.0-46.0) % MCV (80.0-100.0) fL MCHC (31.0-37.0) g/dL RDW (11.5-15.5) % Sodium 132 L (137-145) mmol/L Chloride 91 L (98-107) mmol/L Creatinine 3.32 H (0.52-1.04) mg/dL Glucose 208 H (74-99) mg/dL POC Glucose (mg/dL) 247 H 310 H (70-110) mg/dL 01/24/25 01/24/25 Range/Units 15:12 16:42 RBC (3.80-5.40) m/uL Hgb (11.4-16.0) gm/dL Hct (34.0-46.0) % MCV (80.0-100.0) fL MCHC (31.0-37.0) g/dL RDW (11.5-15.5) % Sodium (137-145) mmol/L Chloride (98-107) mmol/L Creatinine (0.52-1.04) mg/dL Glucose (74-99) mg/dL POC Glucose (mg/dL) 255 H 207 H (70-110) mg/dL
[2025-01-24] MEDS: SODIUM CHLORIDE 0.9% 500 ML 500 ML IV SCH (17:28)
[2025-01-24] MEDS: FAMOTIDINE 20 MG TAB PO SCH (17:35)
[2025-01-24] MEDS: diphenhydrAMINE 25 MG CAP PO PRN (20:27)
[2025-01-24] MEDS: ALPRAZolam 0.5 MG TAB PO PRN (20:27)
[2025-01-24 20:30] LABS: Glucose,Whole Blood 261 mg/dL (70-110)
[2025-01-24] MEDS: INSULIN GLARGINE (LANTUS) 100 UNIT/ML SYR SQ SCH (20:40)
[2025-01-25 06:30] LABS: Glucose,Whole Blood 295 mg/dL (70-110)
--- NOTE | 2025-01-25 07:51 | P.OP ---
Date of Procedure: 01/24/25 Description of Procedure: Preoperative diagnosis: End-stage renal disease on dialysis, need for removal of right chest wall tunneled catheter, anxiety Postoperative diagnosis: Same Procedure: Removal of right chest wall tunneled catheter Surgeon: Abril Razo D.O. EBL: Minimal IV fluids: See records Urine output: Not measured Drains: None Complications: None immediately apparent Condition: Stable Procedure in detail: Patient is a 35-year-old female with end-stage renal disease who previously underwent a left upper extremity loop forearm graft. She is in the hospital now and we are requested to remove her tunneled catheter as they are using the graft and is functioning well. Due to the patient's high level of anxiety, she is not able to tolerate this at the bedside therefore this is done with anesthesia sedation in the operating room. Risk and benefits were discussed. She seemed understood and was willing to proceed. Patient was taken the operative suite placed in supine position. The right chest and neck were prepped and draped in usual sterile fashion. A preprocedural timeout was performed, all parties were in agreement. Using lidocaine, the area surrounding the catheter was infiltrated with 1% local. Using blunt and sharp dissection, the cuff was dissected free. The catheter was removed without incident and manual pressure was held at the insertion site until hemostasis was adequate. Dressing was placed and the patient tolerated the procedure well.
[2025-01-25 08:03] LABS: Anisocytosis Slight; Basophils # (A) 0.1 k/uL (0-0.2); Basophils % (A) 1 %; Eosinophils # (A) 0.7 k/uL (0-0.7); Eosinophils % (A) 7 %; HCT 29.6 % (34.0-46.0); HGB 9.1 gm/dL (11.4-16.0); Hypochromasia Marked; Lymphocytes # (A) 0.9 k/uL (1.0-4.8); Lymphocytes % (A) 10 %; MCH 31.9 pg (25.0-35.0); MCHC 30.6 g/dL (31.0-37.0); MCV 104.2 fL (80.0-100.0); Macrocytosis Moderate; Mean Platelet Volume 7.4; Monocytes # (A) 0.3 k/uL (0-1.0); Monocytes % (A) 3 %; Neutrophils # (A) 7.4 k/uL (1.3-7.7); Neutrophils % (A) 78 %; Platelet Count 300 k/uL (150-450); RBC 2.84 m/uL (3.80-5.40); RDW 17.8 % (11.5-15.5); WBC 9.4 k/uL (3.8-10.6)
[2025-01-25 08:17] LABS: African American GFR (CKD) 11 (>60 ml/min/1.73 sqM); Anion Gap 16 mmol/L; Blood Urea Nitrogen 25 mg/dL (7-17); Calcium 9.3 mg/dL (8.4-10.2); Carbon Dioxide 25 mmol/L (22-30); Chloride 90 mmol/L (98-107); Glucose 292 mg/dL (74-99); Non-African American GFR(CKD) 9 (>60 ml/min/1.73 sqM); Phosphorus 6.5 mg/dL (2.5-4.5); Potassium 5.1 mmol/L (3.5-5.1); Sodium 131 mmol/L (137-145)
--- NOTE | 2025-01-25 09:00 | P.PN ---
Subjective Progress Note Date: 01/25/25 Principal diagnosis: Tunneled catheter removal Patient is seen and examined today as a follow-up. Yesterday she underwent removal of her right IJ tunnel catheter. Patient states she has had no bleeding from site, she is without complaints at this time. Objective - Vital Signs Vital signs: Vital Signs Temp 97.9 F 01/24/25 20:00 Pulse 80 01/25/25 02:58 Resp 16 01/25/25 02:58 BP 147/80 01/25/25 02:58 Pulse Ox 95 01/25/25 02:58 FiO2 40 01/23/25 09:11 Intake & Output 01/24/25 01/25/25 01/25/25 18:59 06:59 18:59 Intake Total 820 370 480 Output Total 1 Balance 819 370 480 Weight 66.9 kg 66.8 kg Intake: IV 220 10 Invasive Line 2 20 10 Oral 600 360 480 Output: Estimated Blood Loss 1 - Exam General appearance: The patient is alert, oriented, appears in no acute distress. HET: Head is normocephalic and atraumatic. Neck: Supple. Chest: Right upper chest wall former catheter site without any bleeding, redness or swelling. Heart: Regular. Lungs: Equal expansion, normal respiratory effort. Abdomen: Soft, nondistended. Extremities: Normal skin color and turgor. Neurological: Alert and oriented. - Labs CBC & Chem 7: 01/25/25 07:17 01/25/25 07:17 Labs: Abnormal Lab Results - Last 24 Hours (Table) 01/24/25 01/24/25 01/24/25 Range/Units 11:21 13:36 15:12 RBC (3.80-5.40) m/uL Hgb (11.4-16.0) gm/dL Hct (34.0-46.0) % MCV (80.0-100.0) fL MCHC (31.0-37.0) g/dL RDW (11.5-15.5) % Lymphocytes # (1.0-4.8) k/uL Sodium (137-145) mmol/L Chloride (98-107) mmol/L BUN (7-17) mg/dL Creatinine (0.52-1.04) mg/dL Glucose (74-99) mg/dL POC Glucose (mg/dL) 247 H 310 H 255 H (70-110) mg/dL Phosphorus (2.5-4.5) mg/dL 01/24/25 01/24/25 01/25/25 Range/Units 16:42 20:28 06:29 RBC (3.80-5.40) m/uL Hgb (11.4-16.0) gm/dL Hct (34.0-46.0) % MCV (80.0-100.0) fL MCHC (31.0-37.0) g/dL RDW (11.5-15.5) % Lymphocytes # (1.0-4.8) k/uL Sodium (137-145) mmol/L Chloride (98-107) mmol/L BUN (7-17) mg/dL Creatinine (0.52-1.04) mg/dL Glucose (74-99) mg/dL POC Glucose (mg/dL) 207 H 261 H 295 H (70-110) mg/dL Phosphorus (2.5-4.5) mg/dL 01/25/25 01/25/25 Range/Units 07:17 07:17 RBC 2.84 L (3.80-5.40) m/uL Hgb 9.1 L (11.4-16.0) gm/dL Hct 29.6 L (34.0-46.0) % MCV 104.2 H (80.0-100.0) fL MCHC 30.6 L (31.0-37.0) g/dL RDW 17.8 H (11.5-15.5) % Lymphocytes # 0.9 L (1.0-4.8) k/uL Sodium 131 L (137-145) mmol/L Chloride 90 L (98-107) mmol/L BUN 25 H (7-17) mg/dL Creatinine 5.60 H (0.52-1.04) mg/dL Glucose 292 H (74-99) mg/dL POC Glucose (mg/dL) (70-110) mg/dL Phosphorus 6.5 H (2.5-4.5) mg/dL Assessment and Plan Assessment: 1. End-stage renal disease on hemodialysis with functioning left upper extre mity loop graft 2. Right IJ tunneled hemodialysis catheter, not being used status post removal Plan: 1. Patient may shower, no tub bathing or soaking for 2 weeks 2. Monitor tunneled catheter site for bleeding There is no further indication for vascular surgical services. We will sign off at this time. The impression and plan of care has been dictated as directed. Dr.Cuello Mao performed a history and examination of this patient, discussed the same with the dictator. I agree with the dictator's note ,documented as a scribe. Any additional findings or plans will be noted.
[2025-01-25 11:18] LABS: Glucose,Whole Blood 135 mg/dL (70-110)
--- NOTE | 2025-01-25 11:32 | P.PN ---
Subjective Patient is seen in follow-up for end-stage renal disease. She is maintained on hemodialysis Wednesday. No active complaints. Permacath removed yesterday. Vital signs are stable. General: No acute distress. HEENT: Head exam is unremarkable. On nasal cannula. LUNGS: No audible rhonchi or wheezes. HEART: Rate and Rhythm are regular. ABDOMEN: Nontender. EXTREMITITES: No edema. Objective - Vital Signs Vital signs: Vital Signs Temp 97.9 F 01/24/25 20:00 Pulse 80 01/25/25 02:58 Resp 16 01/25/25 02:58 BP 147/80 01/25/25 02:58 Pulse Ox 95 01/25/25 10:24 FiO2 40 01/23/25 09:11 Intake & Output 01/24/25 01/25/25 01/25/25 18:59 06:59 18:59 Intake Total 820 370 480 Output Total 1 Balance 819 370 480 Weight 66.9 kg 66.8 kg Intake: IV 220 10 Invasive Line 2 20 10 Oral 600 360 480 Output: Estimated Blood Loss 1 - Labs CBC & Chem 7: 01/25/25 07:17 01/25/25 07:17 Labs: Abnormal Lab Results - Last 24 Hours (Table) 01/24/25 01/24/25 01/24/25 Range/Units 13:36 15:12 16:42 RBC (3.80-5.40) m/uL Hgb (11.4-16.0) gm/dL Hct (34.0-46.0) % MCV (80.0-100.0) fL MCHC (31.0-37.0) g/dL RDW (11.5-15.5) % Lymphocytes # (1.0-4.8) k/uL Sodium (137-145) mmol/L Chloride (98-107) mmol/L BUN (7-17) mg/dL Creatinine (0.52-1.04) mg/dL Glucose (74-99) mg/dL POC Glucose (mg/dL) 310 H 255 H 207 H (70-110) mg/dL Phosphorus (2.5-4.5) mg/dL 01/24/25 01/25/25 01/25/25 Range/Units 20:28 06:29 07:17 RBC 2.84 L (3.80-5.40) m/uL Hgb 9.1 L (11.4-16.0) gm/dL Hct 29.6 L (34.0-46.0) % MCV 104.2 H (80.0-100.0) fL MCHC 30.6 L (31.0-37.0) g/dL RDW 17.8 H (11.5-15.5) % Lymphocytes # 0.9 L (1.0-4.8) k/uL Sodium (137-145) mmol/L Chloride (98-107) mmol/L BUN (7-17) mg/dL Creatinine (0.52-1.04) mg/dL Glucose (74-99) mg/dL POC Glucose (mg/dL) 261 H 295 H (70-110) mg/dL Phosphorus (2.5-4.5) mg/dL 01/25/25 01/25/25 Range/Units 07:17 11:16 RBC (3.80-5.40) m/uL Hgb (11.4-16.0) gm/dL Hct (34.0-46.0) % MCV (80.0-100.0) fL MCHC (31.0-37.0) g/dL RDW (11.5-15.5) % Lymphocytes # (1.0-4.8) k/uL Sodium 131 L (137-145) mmol/L Chloride 90 L (98-107) mmol/L BUN 25 H (7-17) mg/dL Creatinine 5.60 H (0.52-1.04) mg/dL Glucose 292 H (74-99) mg/dL POC Glucose (mg/dL) 135 H (70-110) mg/dL Phosphorus 6.5 H (2.5-4.5) mg/dL Assessment and Plan Plan: Assessment: 1. End-stage renal disease maintained on hemodialysis on Wednesday schedule. AV graft is being used outpatient. Permacath removed January 24, 2025. 2. Hypertensive emergency status post nitroglycerin drip. Improved. 3. Acute hypoxic respiratory failure. 4. Volume overload. Improved with UF. 5. Diabetes mellitus. 6. Chronic kidney disease mineral bone disease. On PhosLo. 7. Anemia of chronic kidney disease. Iron replete. On Aranesp. 8. Hypervolemic hyponatremia. Improved. Plan: Hemodialysis today. Extra treatment tomorrow mostly for ultrafiltration. Challenge ultrafiltration. Blood glucose control. 1500 cc fluid restriction. Potential discharge after dialysis tomorrow. Patient wishes to stay 1 more day.
--- NOTE | 2025-01-25 12:03 | XR ---
EXAMINATION TYPE: XR chest 1V DATE OF EXAM: 01/25/2025 11:17 AM COMPARISON: Chest radiographs from 01/21/2025 CLINICAL INDICATION: Female, 35 years old with history of cough; [facility] TECHNIQUE: XR chest 1V Frontal view of the chest. FINDINGS: Lungs/Pleura: Improved aeration of lungs on today's exam with persistent airspace opacities scattered throughout the lungs. No evidence of pneumothorax or large pleural effusion. Pulmonary vascularity: Unremarkable. Heart/mediastinum: Cardiomediastinal silhouette is unremarkable. Musculoskeletal: No acute osseous pathology. IMPRESSION: Improved aeration of the lungs with persistent multifocal airspace opacities. [facility], , 01/25/2025 12:01 PM
[2025-01-25] MEDS: LIDOCAINE 1% INJ 10MG/ML (20 ML MDV) SQ PRN (13:47)
--- NOTE | 2025-01-25 15:51 | P.PN ---
Subjective Progress Note Date: 01/25/25 Hospital Course: Patient is a 34-year-old female with history of type 2 diabetes melitis, GERD, hypertension, ESRD on hemodialysis (M, T, T, S), hypothyroidism presents to the ER with complaint of shortness of breath that began on evening of 01/21/2025. Patient reports that she did not miss her dialysis session. Her dialysis output is anywhere between 4 to 5 L per session. She has been experiencing cough since couple weeks which is associated with small amount of brown-colored sputum. She has been endorsing some chills and night sweats. Patient denies any sick contacts. Initial lab evaluation shows WBC of 9.1, RBC 3.12, hemoglobin 9.7, hematocrit 31.4, MCV 100.5, platelet count 379, neutrophil count 7.3, PT 12.5, INR, 1.2, 8. 3.4, sodium 129, potassium 4.7, chloride 85, bicarb 28, BUN 39, creatinine 5.18, EGFR 10, glucose 428, plasma lactic acid 1.3, calcium 8.9, total bili 1.0, AST 38, ALT 50, ALP 147, troponin I 0.015, NT proBNP 192926, albumin 4.1, influenza type A/B, RSV and COVID-19 is negative. Chest x-ray interpreted independently shows bilateral pulmonary edema. EKG interpreted independently shows normal sinus rhythm ventricular rate 87 bpm, [place] interval 138 ms, QRS duration 89 ms, QTc 450 ms which is borderline prolonged. Vitals on arrival temperature 97.2 F, pulse rate 87, respirate 24, blood pressure 231/131, oxygen saturation 100 on nonrebreather with low O2 flow rate of 15. Subjective: Patient seen and examined at the bedside. No acute events overnight. Patient is reporting mild shortness of breath and cough. Permacath was removed yesterday. Patient on room air. All Systems reviewed and pertinent positives and negatives noted in HPI, all other symptoms are negative Objective: Vital signs reviewed. General: non toxic, no distress, appears at stated age, normal weight Derm: no unusual rashes/lesions, warm Head: atraumatic, normocephalic, symmetric Eyes: EOMI, no lid lag, anicteric sclera, pupils equal round reactive to light ENT: Nose and ears atraumatic Neck: No cervical lymphadenopathy, trachea midline, supple Mouth: no lip lesion, mucus membranes moist Cardiovascular: S1S2 reg, no murmur, positive dorsalis pedis pulse bilateral, no edema, right chest wall IJ tunneled catheter removal site is clean and dry Lungs: CTA bilateral, no rhonchi, no rales, no accessory muscle use Abdominal: soft, nontender to palpation, no guarding Ext: muscle strength 5 out of 5 in all 4 extremities grossly, no gross muscle atrophy, no contractures, Neuro: CN II-XI grossly intact, no gross focal neuro deficits Psych: Alert, oriented, appropriate affect Data reviewed today: Pertinent Labs: WBC 9.4, hemoglobin 9.1, MCV 104.2, sodium 131, potassium 5.1, chloride 90, BUN 25, 25.60, glucose 135, phosphorus 6.5 Images: Chest x-ray shows improved aeration of the lungs with persistent multifocal airspace opacities. Assessment and Plan: Active problem: #End-stage renal disease on hemodialysis, (M, T, T, S) #Hypervolemic hyponatremia, at baseline #Acute on chronic ELOINA #Pulmonary edema, improved #Hypertensive emergency, resolved #Acute hypoxemic respiratory failure secondary to vascular congestion, on room air #Hyperphosphatemia, resolved Nephrology on board, appreciate recs; vascular surgery was consulted; tunneled catheter yesterday Continue with hemodialysis, next HD today and tomorrow Continue with renal diet Continue with cardiac incendiary powder mixer I's and O's and daily weights Order CBC and BMP Continue with oxygen therapy Continue with Procardia XL 60 mg p.o. twice daily, labetalol 500 g p.o. twice daily hydralazine 100 mg p.o. 3 times daily clonidine 0.3 mg p.o. 3 times daily Continue with Aranesp 40 mcg subcu at HD #Anemia of chronic disease Iron studies: Iron 66, TIBC 269, percent saturation 24.54, transferrin 192, ferritin 909 # Type 2 diabetes mellitus, uncontrolled Accu-Cheks and sliding scale HbA1c 9.8% Increase Lantus 10 units in a.m. and 10 units in p.m. Continue Humalog 8 units 3 times daily with meals Monitor for hypoglycemia Chronic: #Hyperlipidemia #GERD #Anxiety and depression Resume trazodone 50 mg p.o. at bedtime, Zoloft 200 mg p.o. daily, pantoprazole 40 mg p.o. daily, Percocet 103 25 1 p.o. every 4 hours as needed, Synthroid 175 mcg p.o. daily, Imdur 120 mg p.o. daily gabapentin 100 mg p.o. twice daily Pepcid 20 mg p.o. twice daily DVT prophylaxis: SCDs GI prophylaxis: Pantoprazole 40 mg p.o. daily F: None E: Replete as needed N: Renal diet A: Ambulatory at baseline CODE STATUS: Full code Discussed with: Patient Anticipated discharge place: Pending clinical course Dictation was produced using [email or web address] dictation software. Please excuse any grammatical, word or spelling errors. Objective - Vital Signs Vital signs: Vital Signs Temp 97.9 F 01/24/25 20:00 Pulse 82 01/25/25 14:00 Resp 16 01/25/25 14:00 BP 143/72 01/25/25 12:00 Pulse Ox 96 01/25/25 12:00 FiO2 40 01/23/25 09:11 Intake & Output 01/24/25 01/25/25 01/25/25 18:59 06:59 18:59 Intake Total 820 370 720 Output Total 1 Balance 819 370 720 Weight 66.9 kg 66.8 kg Intake: IV 220 10 Invasive Line 2 20 10 Oral 600 360 720 Output: Estimated Blood Loss 1 - Labs CBC & Chem 7: 01/26/25 06:56 01/26/25 06:56 Labs: Abnormal Lab Results - Last 24 Hours (Table) 01/24/25 01/24/25 01/25/25 Range/Units 16:42 20:28 06:29 RBC (3.80-5.40) m/uL Hgb (11.4-16.0) gm/dL Hct (34.0-46.0) % MCV (80.0-100.0) fL MCHC (31.0-37.0) g/dL RDW (11.5-15.5) % Lymphocytes # (1.0-4.8) k/uL Sodium (137-145) mmol/L Chloride (98-107) mmol/L BUN (7-17) mg/dL Creatinine (0.52-1.04) mg/dL Glucose (74-99) mg/dL POC Glucose (mg/dL) 207 H 261 H 295 H (70-110) mg/dL Phosphorus (2.5-4.5) mg/dL 01/25/25 01/25/25 01/25/25 Range/Units 07:17 07:17 11:16 RBC 2.84 L (3.80-5.40) m/uL Hgb 9.1 L (11.4-16.0) gm/dL Hct 29.6 L (34.0-46.0) % MCV 104.2 H (80.0-100.0) fL MCHC 30.6 L (31.0-37.0) g/dL RDW 17.8 H (11.5-15.5) % Lymphocytes # 0.9 L (1.0-4.8) k/uL Sodium 131 L (137-145) mmol/L Chloride 90 L (98-107) mmol/L BUN 25 H (7-17) mg/dL Creatinine 5.60 H (0.52-1.04) mg/dL Glucose 292 H (74-99) mg/dL POC Glucose (mg/dL) 135 H (70-110) mg/dL Phosphorus 6.5 H (2.5-4.5) mg/dL
[2025-01-25 16:24] LABS: Glucose,Whole Blood 105 mg/dL (70-110)
[2025-01-25] MEDS: BENZONATATE 100 MG CAP PO PRN (17:11)
[2025-01-25 20:54] LABS: Glucose,Whole Blood 353 mg/dL (70-110)
[2025-01-25] MEDS: INSULIN GLARGINE (LANTUS) 100 UNIT/ML SYR SQ SCH (21:07)
[2025-01-26 06:11] LABS: Glucose,Whole Blood 301 mg/dL (70-110)
[2025-01-26 07:27] LABS: Anisocytosis Slight; Basophils % (A) 0 %; Eosinophils # (A) 0.7 k/uL (0-0.7); Eosinophils % (A) 8 %; HCT 28.2 % (34.0-46.0); HGB 8.5 gm/dL (11.4-16.0); Hypochromasia Slight; Lymphocytes % (A) 12 %; MCH 31.4 pg (25.0-35.0); MCHC 30.3 g/dL (31.0-37.0); MCV 103.6 fL (80.0-100.0); Macrocytosis Moderate; Mean Platelet Volume 7.8; Monocytes # (A) 0.2 k/uL (0-1.0); Monocytes % (A) 2 %; Neutrophils # (A) 6.5 k/uL (1.3-7.7); Neutrophils % (A) 76 %; Platelet Count 280 k/uL (150-450); RBC 2.72 m/uL (3.80-5.40); RDW 18.2 % (11.5-15.5); WBC 8.5 k/uL (3.8-10.6)
[2025-01-26 07:45] LABS: African American GFR (CKD) 11 (>60 ml/min/1.73 sqM); Anion Gap 14 mmol/L; Blood Urea Nitrogen 30 mg/dL (7-17); Calcium 9.5 mg/dL (8.4-10.2); Carbon Dioxide 26 mmol/L (22-30); Chloride 92 mmol/L (98-107); Glucose 231 mg/dL (74-99); Non-African American GFR(CKD) 9 (>60 ml/min/1.73 sqM); Phosphorus 5.6 mg/dL (2.5-4.5); Potassium 4.7 mmol/L (3.5-5.1); Sodium 132 mmol/L (137-145)
[2025-01-26] MEDS ORDERED: LIDOCAINE 4% PATCH TOPICAL SCH (08:00)
--- NOTE | 2025-01-26 10:22 | P.PN ---
Subjective Patient is seen in follow-up for end-stage renal disease. She is maintained on hemodialysis Wednesday. No active complaints. Permacath removed this admission. Tolerating dialysis well. Vital signs are stable. General: No acute distress. HEENT: Head exam is unremarkable. On nasal cannula. LUNGS: No audible rhonchi or wheezes. HEART: Rate and Rhythm are regular. ABDOMEN: Nontender. EXTREMITITES: No edema. Objective - Vital Signs Vital signs: Vital Signs Temp 98.1 F 01/25/25 20:00 Pulse 80 01/26/25 03:32 Resp 16 01/26/25 03:32 BP 142/70 01/26/25 03:32 Pulse Ox 98 01/26/25 08:24 FiO2 40 01/23/25 09:11 Intake & Output 01/25/25 01/26/25 01/26/25 18:59 06:59 18:59 Intake Total 4460 740 236 Output Total 3400 0 Balance 1060 740 236 Weight 68.2 kg Intake: Oral 1060 740 236 Hemodialysis 3400 Output: Urine 0 Hemodialysis 400 Hemodialysis Net Amount 3000 - Labs CBC & Chem 7: 01/26/25 06:56 01/26/25 06:56 Labs: Abnormal Lab Results - Last 24 Hours (Table) 01/25/25 01/25/25 01/26/25 Range/Units 11:16 20:52 06:09 RBC (3.80-5.40) m/uL Hgb (11.4-16.0) gm/dL Hct (34.0-46.0) % MCV (80.0-100.0) fL MCHC (31.0-37.0) g/dL RDW (11.5-15.5) % Sodium (137-145) mmol/L Chloride (98-107) mmol/L BUN (7-17) mg/dL Creatinine (0.52-1.04) mg/dL Glucose (74-99) mg/dL POC Glucose (mg/dL) 135 H 353 H 301 H (70-110) mg/dL Phosphorus (2.5-4.5) mg/dL 01/26/25 01/26/25 Range/Units 06:56 06:56 RBC 2.72 L (3.80-5.40) m/uL Hgb 8.5 L (11.4-16.0) gm/dL Hct 28.2 L (34.0-46.0) % MCV 103.6 H (80.0-100.0) fL MCHC 30.3 L (31.0-37.0) g/dL RDW 18.2 H (11.5-15.5) % Sodium 132 L (137-145) mmol/L Chloride 92 L (98-107) mmol/L BUN 30 H (7-17) mg/dL Creatinine 5.45 H (0.52-1.04) mg/dL Glucose 231 H (74-99) mg/dL POC Glucose (mg/dL) (70-110) mg/dL Phosphorus 5.6 H (2.5-4.5) mg/dL Assessment and Plan Plan: Assessment: 1. End-stage renal disease maintained on hemodialysis on Wednesday schedule. AV graft is being used outpatient. Permacath removed January 24, 2025. 2. Hypertensive emergency status post nitroglycerin drip. Improved. 3. Acute hypoxic respiratory failure. 4. Volume overload. Improved with UF. 5. Diabetes mellitus. 6. Chronic kidney disease mineral bone disease. On PhosLo. 7. Anemia of chronic kidney disease. Iron replete. On Aranesp. 8. Hypervolemic hyponatremia. Improved. Plan: Currently seen while undergoing hemodialysis. Receiving an extra treatment today. Another dialysis treatment tomorrow per her outpatient schedule. Challenge ultrafiltration. Blood glucose control. 1500 cc fluid restriction. Potential discharge after dialysis today.
[2025-01-26 11:23] LABS: Glucose,Whole Blood 154 mg/dL (70-110)
--- NOTE | 2025-01-26 13:32 | P.DS ---
Providers Date of admission: 01/22/25 02:29 Attending physician: Dahiana Chan Consults: 01/22/25 02:26 Consult Physician Routine Consulting Provider: Charlene Lim Consult Reason/Comments: CKD Do you want consulting provider notified?: Yes Primary care physician: Stated None Hospital Course: Discharge Diagnosis: #End-stage renal disease on hemodialysis, (M, T, T, S) #Hypervolemic hyponatremia, at baseline #Acute on chronic ELOINA, improved #Pulmonary edema, improved #Hypertensive emergency, resolved #Acute hypoxemic respiratory failure secondary to vascular congestion, on room air, resolved #Hyperphosphatemia, resolved #Anemia of chronic disease # Type 2 diabetes mellitus Hospital Course: Patient is a 34-year-old female with history of type 2 diabetes melitis, GERD, hypertension, ESRD on hemodialysis (M, T, T, S), hypothyroidism presents to the ER with complaint of shortness of breath that began on evening of 01/21/2025. Patient reports that she did not miss her dialysis session. Her dialysis output is anywhere between 4 to 5 L per session. She has been experiencing cough since couple weeks which is associated with small amount of brown-colored sputum. She has been endorsing some chills and night sweats. Patient denies any sick contacts. Initial lab evaluation shows WBC of 9.1, RBC 3.12, hemoglobin 9.7, hematocrit 31.4, MCV 100.5, platelet count 379, neutrophil count 7.3, PT 12.5, INR, 1.2, 8. 3.4, sodium 129, potassium 4.7, chloride 85, bicarb 28, BUN 39, creatinine 5.18, EGFR 10, glucose 428, plasma lactic acid 1.3, calcium 8.9, total bili 1.0, AST 38, ALT 50, ALP 147, troponin I 0.015, NT proBNP [id number], albumin 4.1, influenza type A/B, RSV and COVID-19 is negative. Chest x-ray interpreted independently shows bilateral pulmonary edema. EKG interpreted independently shows normal sinus rhythm ventricular rate 87 bpm, IA interval 138 ms, QRS duration 89 ms, QTc 450 ms which is borderline prolonged. Vitals on arrival temperature 97.2 F, pulse rate 87, respirate 24, blood pressure 231/131, oxygen saturation 100 on nonrebreather with low O2 flow rate of 15. Nephrology and vascular surgery were consulted. Right chest wall IJ tunnel cat heter was removed. Patient received dialysis during hospitalization course. Repeat chest x-ray shows improved vascular congestion. Patient continue improving her symptoms. Patient is hemodynamically stable and optimized for discharge. Discharge disposition: Home with self-care Discharge instruction: Patient to follow-up with PCP and food service sales representatives Patient to continue with her regular home medications BMP within 4 days Vital signs reviewed. General: non toxic, no distress, appears at stated age, normal weight Derm: no unusual rashes/lesions, warm Head: atraumatic, normocephalic, symmetric Eyes: EOMI, no lid lag, anicteric sclera, pupils equal round reactive to light ENT: Nose and ears atraumatic Neck: No cervical lymphadenopathy, trachea midline, supple Mouth: no lip lesion, mucus membranes moist Cardiovascular: S1S2 reg, no murmur, positive dorsalis pedis pulse bilateral, no edema, right chest wall IJ tunneled catheter removal site is clean and dry Lungs: CTA bilateral, no rhonchi, no rales, no accessory muscle use Abdominal: soft, nontender to palpation, no guarding Ext: muscle strength 5 out of 5 in all 4 extremities grossly, no gross muscle atrophy, no contractures, Neuro: CN II-XI grossly intact, no gross focal neuro deficits Psych: Alert, oriented, appropriate affect Dictation was produced using [employer] dictation software. Please excuse any grammatical, word or spelling errors. Attestation I have seen and examined this patient with my resident , discussed the same with the resident/ANTHONY, and agree with the dictator's assessment and plan as written Dr. Getachew son Patient Condition at Discharge: Stable Plan - Discharge Summary Discharge Rx Participant: Yes New Discharge Prescriptions: Continue Magnesium Hydroxide [Milk of Magnesia Concentrate] 7,200 mg PO DAILY PRN PRN Reason: Constipation Lidocaine 4% Patch 1 patch TOPICAL DAILY@0800 Ipratropium-Albuterol Nebulize [Duoneb 0.5 mg-3 mg/3 ml Soln] 3 ml INHALATION RT-TID PRN each PRN Reason: Shortness Of Breath Or Wheezing Biotene Dry Mouth/Throat 10 ml PO BID PRN PRN Reason: DRY MOUTH/THROAT Acetaminophen [Tylenol] 650 mg PO Q4H PRN PRN Reason: Pain Or Fever > 100.5 Darbepoetin Artur [Aranesp] 40 mcg SQ MO Loratadine [Claritin] 5 mg PO DAILY tab Sertraline [Zoloft] 200 mg PO DAILY@0800 ALPRAZolam [Xanax] 0.25 mg PO BID PRN PRN Reason: Anxiety Colchicine [Colcrys] 0.3 mg PO DAILY #15 each Ondansetron Odt [Zofran ODT] 4 mg PO Q8HR PRN PRN Reason: Nausea And Vomiting Atorvastatin [Lipitor] 40 mg PO HS #0 Folic Acid/Vit B Complex and C [Davina-Mayte Tablet] 0.8 mg PO DAILY Divalproex ER [Depakote ER] 500 mg PO BID@0800,1700 #60 tab Isosorbide Mononitrate ER [Imdur] 120 mg PO DAILY #60 tab NIFEdipine XL [Procardia XL] 60 mg PO BID 30 Days #60 tab Gabapentin [Neurontin] 100 mg PO BID 30 Days #60 cap Linagliptin [Tradjenta] 5 mg PO DAILY #30 tab cloNIDine HCL [Catapres] 0.3 mg PO TID Insulin Lispro [humaLOG Kwikpen] See Protocol SQ AC-TID Butalb/APAP/Caff 50-325-40Mg [Fioricet 50-325-40] 1 tab PO Q4HR PRN #12 tab PRN Reason: Headache Docusate [Colace] 100 mg PO DAILY@0800 polyethylene glycoL 3350 [Miralax] 17 gm PO AC-LUNCH #527 gm Melatonin 1 mg PO HS tab Aspirin 81 mg PO DAILY@0800 #30 tab Famotidine [Pepcid] 20 mg PO BID #60 tab Levothyroxine Sodium [Synthroid] 175 mcg PO DAILY@0600 Metoclopramide [Reglan] 5 mg PO AC-TID PRN PRN Reason: Nausea Pantoprazole [Protonix] 40 mg PO DAILY@0600 Calcium Acetate [PhosLo] 667 mg PO DAILY PRN PRN Reason: W/SNACK oxyCODONE-APAP 10-325MG [Percocet 10-325 mg] 1 tab PO Q4HR PRN #18 tab PRN Reason: Pain SCALE 6-10 hydrALAZINE HCL [Apresoline] 100 mg PO TID 30 Days #90 tab traZODone HCL [Desyrel] 50 mg PO HS #20 tab Labetalol [Trandate] 500 mg PO BID 30 Days #150 tab Insulin Lispro [humaLOG Kwikpen] 8 unit SQ AC-TID Discontinued Calcium Acetate [PhosLo] 2,001 mg PO TID-W/MEALS Discharge Medication List Docusate [Colace] 100 mg PO DAILY@0800 02/05/24 [History] Lidocaine 4% Patch 1 patch TOPICAL DAILY@0802/05/24 [History] Magnesium Hydroxide [Milk of Magnesia Concentrate] 7,200 mg PO DAILY PRN 02/05/24 [History] Ipratropium-Albuterol Nebulize [Duoneb 0.5 mg-3 mg/3 ml Soln] 3 ml INHALATION RT-TID PRN each 02/14/24 [Rx] polyethylene glycoL 3350 [Miralax] 17 gm PO AC-LUNCH #527 gm 02/14/24 [Rx] Acetaminophen [Tylenol] 650 mg PO Q4H PRN 02/18/24 [History] Biotene Dry Mouth/Throat 10 ml PO BID PRN 02/18/24 [History] Melatonin 1 mg PO HS tab 02/25/24 [Rx] Darbepoetin Artur [Aranesp] 40 mcg SQ MO 03/14/24 [History] Loratadine [Claritin] 5 mg PO DAILY tab 03/30/24 [Rx] Aspirin 81 mg PO DAILY@0800 #30 tab 05/18/24 [Rx] Famotidine [Pepcid] 20 mg PO BID #60 tab 07/11/24 [Rx] Levothyroxine Sodium [Synthroid] 175 mcg PO DAILY@59908/14/24 [History] Metoclopramide [Reglan] 5 mg PO AC-TID PRN 08/14/24 [History] Pantoprazole [Protonix] 40 mg PO DAILY@59908/14/24 [History] Sertraline [Zoloft] 200 mg PO DAILY@79908/14/24 [History] ALPRAZolam [Xanax] 0.25 mg PO BID PRN 09/04/24 [History] Calcium Acetate [PhosLo] 667 mg PO DAILY PRN 09/04/24 [History] Colchicine [Colcrys] 0.3 mg PO DAILY #15 each 09/23/24 [Rx] Ondansetron Odt [Zofran ODT] 4 mg PO Q8HR PRN 11/02/24 [History] Atorvastatin [Lipitor] 40 mg PO HS #0 11/23/24 [Rx] oxyCODONE-APAP 10-325MG [Percocet 10-325 mg] 1 tab PO Q4HR PRN #18 tab 11/23/24 [Rx] Folic Acid/Vit B Complex and C [Davina-Mayte Tablet] 0.8 mg PO DAILY 12/20/24 [History] hydrALAZINE HCL [Apresoline] 100 mg PO TID 30 Days #90 tab 01/01/25 [Rx] traZODone HCL [Desyrel] 50 mg PO HS #20 tab 01/01/25 [Rx] Divalproex ER [Depakote ER] 500 mg PO BID@0800,1700 #60 tab 01/02/25 [Rx] Isosorbide Mononitrate ER [Imdur] 120 mg PO DAILY #60 tab 01/02/25 [Rx] Labetalol [Trandate] 500 mg PO BID 30 Days #150 tab 01/02/25 [Rx] NIFEdipine XL [Procardia XL] 60 mg PO BID 30 Days #60 tab 01/02/25 [Rx] Gabapentin [Neurontin] 100 mg PO BID 30 Days #60 cap 01/03/25 [Rx] Linagliptin [Tradjenta] 5 mg PO DAILY #30 tab 01/03/25 [Rx] Insulin Lispro [humaLOG Kwikpen] 8 unit SQ AC-TID 01/22/25 [History] Insulin Lispro [humaLOG Kwikpen] See Protocol SQ AC-TID 01/22/25 [History] cloNIDine HCL [Catapres] 0.3 mg PO TID 01/22/25 [History] Butalb/APAP/Caff 50-325-40Mg [Fioricet 50-325-40] 1 tab PO Q4HR PRN #12 tab 01/26/25 [Rx] Follow up Appointment(s)/Referral(s): Charlene Lim MD [STAFF PHYSICIAN] - 1 Week None,Stated [Primary Care Provider] - 1-2 days Residential Home[facility] [NON-STAFF] - Ambulatory/Diagnostic Orders: Basic Metabolic Panel [LAB.AMB] Location: None Selected Patient Instructions/Handouts: Dialysis Diet (DC), End Stage Kidney Disease (DC), Hemodialysis (DC) Activity/Diet/Wound Care/Special Instructions: Please follow-up with your PCP and food service sales representatives within 1 to 2 weeks. Please get your BMP as an outpatient and follow-up with food service sales representatives. Discharge Disposition: HOME SELF-CARE
[2025-01-26 14:37] VITALS: BP 128/68; PULSE 80; RESP 18
[2025-01-26 17:21] VITALS: TEMP 98
== END 2025-01-26 13:46 | disposition home or self-care (01) | DRG 189 ==
LOC: EC 20:15 → 3SCARD 01-22 02:29
PROVIDERS: ADMIT Hospitalist; ATTEND Hospitalist
PROC: 5A1D70Z Performance of Urinary Filtration, Intermittent, Less than 6 Hours Per Day (ICD-10-PCS; 2025-01-22)
PROC: 05PY33Z Removal of Infusion Device from Upper Vein, Percutaneous Approach (ICD-10-PCS; principal; 2025-01-24 14:00)
DX: J96.01 Acute respiratory failure with hypoxia (principal); N18.6 End stage renal disease; J81.0 Acute pulmonary edema; I12.0 Hypertensive chronic kidney disease with stage 5 chronic kidney disease or end stage renal disease; I16.1 Hypertensive emergency; Z11.52 Encounter for screening for COVID-19; E83.39 Other disorders of phosphorus metabolism; D63.1 Anemia in chronic kidney disease; Z99.2 Dependence on renal dialysis; E11.22 Type 2 diabetes mellitus with diabetic chronic kidney disease; G40.909 Epilepsy, unspecified, not intractable, without status epilepticus; E03.9 Hypothyroidism, unspecified; F32.A Depression, unspecified; N17.9 Acute kidney failure, unspecified; E11.43 Type 2 diabetes mellitus with diabetic autonomic (poly)neuropathy; E11.65 Type 2 diabetes mellitus with hyperglycemia; Z79.4 Long term (current) use of insulin; K31.84 Gastroparesis; Z79.890 Hormone replacement therapy; Z90.49 Acquired absence of other specified parts of digestive tract; E78.5 Hyperlipidemia, unspecified; F17.200 Nicotine dependence, unspecified, uncomplicated; E87.70 Fluid overload, unspecified; F41.9 Anxiety disorder, unspecified; K21.9 Gastro-esophageal reflux disease without esophagitis; M89.8X9 Other specified disorders of bone, unspecified site; Z79.82 Long term (current) use of aspirin; Z79.84 Long term (current) use of oral hypoglycemic drugs; Z79.899 Other long term (current) drug therapy; Z82.49 Family history of ischemic heart disease and other diseases of the circulatory system; Z86.73 Personal history of transient ischemic attack (TIA), and cerebral infarction without residual deficits; Z96.41 Presence of insulin pump (external) (internal); H54.7 Unspecified visual loss
CPT/HCPCS: 36415; 71045; 71046; 80048; 80053; 81025; 82728; 83036; 83540; 83550; 83605; 83735; 83880; 84100; 84484; 84703; 85025; 85610; 85730; 87636; 90935; 93005; 94660; 94760; 96365; 96366; 96372; 96375; 96376; 99291

== ENCOUNTER 2025-02-03 18:56 | Observation (INO) | payer MEDICARE ==
--- NOTE | 2025-02-03 19:15 | ED ---
SOB HPI - General Chief Complaint: Shortness of Breath Stated Complaint: WAQAR,Chest discomfort Time Seen by Provider: 02/03/25 19:00 Source: patient, EMS, RN notes reviewed, old records reviewed Mode of arrival: EMS Limitations: no limitations - History of Present Illness Initial Comments: This is a 35-year-old female to the ER for evaluation as patient presents today for evaluation regards to shortness of breath. Patient presents for persistent shortness of breath even after dialysis today. Patient states he did not take off enough fluid and dialysis that she has significant swelling overall swelling and shortness of breath history of CHF currently without chest pain or other MD Complaint: shortness of breath -: hour(s) Severity: moderate Severity scale (1-10): 7 Consistency: constant Improves With: nothing Known History Of: congestive heart failure Context: anxiety Treatments Prior to Arrival: none - Related Data Home Medications Medication Instructions Recorded Confirmed Docusate [Colace] 100 mg PO DAILY@79902/05/24 02/04/25 Lidocaine 4% Patch 1 patch TOPICAL DAILY@79902/05/24 02/04/25 Magnesium Hydroxide [Milk of 7,200 mg PO DAILY PRN 02/05/24 02/04/25 Magnesia Concentrate] Acetaminophen [Tylenol] 650 mg PO Q4H PRN 02/18/24 02/04/25 Biotene Dry Mouth/Throat 10 ml PO BID PRN 02/18/24 02/04/25 Darbepoetin Artur [Aranesp] 40 mcg SQ MO 03/14/24 02/04/25 Levothyroxine Sodium [Synthroid] 175 mcg PO DAILY@59908/14/24 02/04/25 Metoclopramide [Reglan] 5 mg PO AC-TID PRN 08/14/24 02/04/25 Pantoprazole [Protonix] 40 mg PO DAILY@59908/14/24 02/04/25 Sertraline [Zoloft] 200 mg PO DAILY@79908/14/24 02/04/25 ALPRAZolam [Xanax] 0.25 mg PO BID PRN 09/04/24 02/04/25 Calcium Acetate [PhosLo] 667 mg PO DAILY PRN 09/04/24 02/04/25 Ondansetron Odt [Zofran ODT] 4 mg PO Q8HR PRN 11/02/24 02/04/25 Folic Acid/Vit B Complex and C 0.8 mg PO DAILY 12/20/24 02/04/25 [Davina-Mayte Tablet] Insulin Lispro [humaLOG Kwikpen] 8 unit SQ AC-TID 01/22/25 02/04/25 Insulin Lispro [humaLOG Kwikpen] See Protocol SQ AC-TID 01/22/25 02/04/25 cloNIDine HCL [Catapres] 0.3 mg PO TID 01/22/25 02/04/25 Previous Rx's Medication Instructions Recorded Ipratropium-Albuterol Nebulize 3 ml INHALATION RT-TID PRN each 02/14/24 [Duoneb 0.5 mg-3 mg/3 ml Soln] polyethylene glycoL 3350 [Miralax] 17 gm PO AC-LUNCH #527 gm 02/14/24 Melatonin 1 mg PO HS tab 02/25/24 Loratadine [Claritin] 5 mg PO DAILY tab 03/30/24 Aspirin 81 mg PO DAILY@0800 #30 tab 05/18/24 Famotidine [Pepcid] 20 mg PO BID #60 tab 07/11/24 Colchicine [Colcrys] 0.3 mg PO DAILY #15 each 09/23/24 Atorvastatin [Lipitor] 40 mg PO HS #0 11/23/24 oxyCODONE-APAP 10-325MG [Percocet 1 tab PO Q4HR PRN #18 tab 11/23/24 10-325 mg] hydrALAZINE HCL [Apresoline] 100 mg PO TID 30 Days #90 tab 01/01/25 traZODone HCL [Desyrel] 50 mg PO HS #20 tab 01/01/25 Divalproex ER [Depakote ER] 500 mg PO BID@0800,1700 #60 tab 01/02/25 Isosorbide Mononitrate ER [Imdur] 120 mg PO DAILY #60 tab 01/02/25 Labetalol [Trandate] 500 mg PO BID 30 Days #150 tab 01/02/25 NIFEdipine XL [Procardia XL] 60 mg PO BID 30 Days #60 tab 01/02/25 Gabapentin [Neurontin] 100 mg PO BID 30 Days #60 cap 01/03/25 Linagliptin [Tradjenta] 5 mg PO DAILY #30 tab 01/03/25 Butalb/APAP/Caff 50-325-40Mg 1 tab PO Q4HR PRN #12 tab 01/26/25 [Fioricet 50-325-40] Insulin Glargine (Lantus) [Lantus 10 unit SQ BID@0700,2100 30 Days 02/06/25 Vial] #4 each Allergies Allergy/AdvReac Type Severity Reaction Status Date / Time hydromorphone HCl Allergy Anaphylaxis Verified 02/04/25 10:55 [From Dilaudid] propoxyphene Allergy Rash/Hives Verified 02/04/25 10:55 [From Darvocet-N] tramadol Allergy Anaphylaxis Verified 02/04/25 10:55 ibuprofen [From Motrin] AdvReac unable to Verified 02/04/25 10:55 take due to kidney disease venom-honey bee AdvReac passes out Verified 02/04/25 10:55 [bee venom (honey bee)] Review of Systems ROS Statement: Those systems with pertinent positive or pertinent negative responses have been documented in the HPI. ROS Other: All systems not noted in ROS Statement are negative. 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 Past Anesthesia/Blood Transfusion Reactions: Previous Problems w/ Anesthesia Additional Past Anesthesia/Blood Transfusion Reaction / Comment(s): confusion Past Psychological History: Anxiety, Depression Smoking Status: Current every day smoker Past Alcohol Use History: None Reported Past Drug Use History: Marijuana - Past Family History Father History Unknown: Yes Family Medical History: Unable to Obtain Mother History Unknown: Yes Family Medical History: No Reported History Grandfather History Unknown: Yes Family Medical History: Coronary Artery Disease (CAD) Additional Family Medical History / Comment(s): Diabetes mellitus type 2 General Exam Limitations: no limitations General appearance: alert, in no apparent distress Head exam: Present: atraumatic, normocephalic, normal inspection Eye exam: Present: normal appearance, PERRL, EOMI. Absent: scleral icterus, conjunctival injection, periorbital swelling ENT exam: Present: normal exam, mucous membranes moist Neck exam: Present: normal inspection. Absent: tenderness, meningismus, lymphadenopathy Respiratory exam: Present: respiratory distress, rales, accessory muscle use, decreased breath sounds, prolonged expiratory. Absent: wheezes, rhonchi, stridor Cardiovascular Exam: Present: regular rate, normal rhythm, normal heart sounds. Absent: systolic murmur, diastolic murmur, rubs, gallop, clicks GI/Abdominal exam: Present: soft, normal bowel sounds. Absent: distended, tenderness, guarding, rebound, rigid Extremities exam: Present: normal inspection, full ROM, normal capillary refill. Absent: tenderness, pedal edema, joint swelling, calf tenderness Back exam: Present: normal inspection Neurological exam: Present: alert, oriented X3, CN II-XII intact Psychiatric exam: Present: normal affect, normal mood Skin exam: Present: warm, dry, intact, normal color. Absent: rash Course Vital Signs 02/03/25 02/03/25 02/03/25 18:59 19:02 20:01 Temperature 98.9 F Pulse Rate 92 92 Respiratory 20 20 13 Rate Blood Pressure 167/112 186/99 O2 Sat by Pulse 99 97 Oximetry 02/03/25 02/03/25 02/03/25 20:11 20:21 22:40 Temperature Pulse Rate 89 86 89 Respiratory 20 Rate Blood Pressure 197/111 O2 Sat by Pulse 98 Oximetry 02/04/25 02/04/25 02/04/25 00:00 01:30 02:00 Temperature 98.3 F Pulse Rate 98 84 74 Respiratory 19 19 17 Rate Blood Pressure 209/119 173/107 159/98 O2 Sat by Pulse 98 98 98 Oximetry 02/04/25 02/04/25 02/04/25 02:55 07:00 08:00 Temperature Pulse Rate 77 82 84 Respiratory 13 15 16 Rate Blood Pressure 166/105 153/88 162/94 O2 Sat by Pulse 98 100 99 Oximetry 02/04/25 02/04/25 02/04/25 09:00 10:00 13:24 Temperature Pulse Rate 92 84 84 Respiratory 18 18 15 Rate Blood Pressure 149/95 124/85 146/80 O2 Sat by Pulse 99 99 99 Oximetry - Reevaluation(s) Reevaluation #1: 02/03/25 21:00 Medical records reviewed Reevaluation #2: 02/03/25 21:23 patient symptoms unchanged Reevaluation #3: 02/03/25 21:23 patient informed of results and questions answered Reevaluation #4: Was pt. sent in by a medical professional or institution ([facility], IMAGING ACCOUNT MANAGER, urgent care, hospital, or longterm...) When possible be specific @ -no Did you speak to anyone other than the patient for history (EMS, parent, family, police, friend...)? What history was obtained from this source @ -no Did you review nursing and triage notes (agree or disagree)? Why? @ -agree Are old charts reviewed (outside hosp., previous admission, EMS record, old EKG, old radiological studies, urgent care reports/EKG's, longterm records)? Report findings @ -yes Differential Diagnosis (chest pain, altered mental status, abdominal pain women, abdominal pain men, vaginal bleeding, weakness, fever, dyspnea, syncope, headache, dizziness, GI bleed, back pain, seizure, CVA, palpatations, mental health, musculoskeletal)? @ -prior EKG interpreted by me (3pts min.). @ -yes X-rays interpreted by me (1pt min.). @ -yes positive for pulmonary edema CT interpreted by me (1pt min.). @ -no U/S interpreted by me (1pt. min.). @ -no What testing was considered but not performed or refused? (CT, X-rays, U/S, labs)? Why? @ -none What meds were considered but not given or refused? Why? @ -none Did you discuss the management of the patient with other professionals (pro fessionals i.e. , PA, IMAGING ACCOUNT MANAGER, lab, RT, psych nurse, adoption social worker, billing department supervisor, teacher, maritime officer, case reviewer)? Give summary @ -no Was smoking cessation discussed for >3mins.? @ -no Was critical care preformed (if so, how long)? @ -yes31 Were there social determinants of health that impacted care today? How? (Homelessness, low income, unemployed, alcoholism, drug addiction, transportation, low edu. Level, literacy, decrease access to med. care, skilled nursing, rehab)? @ -none Was there de-escalation of care discussed even if they declined (Discuss DNR or withdrawal of care, Hospice)? DNR status @ -no What co-morbidities impacted this encounter? (DM, HTN, Smoking, COPD, CAD, Cancer, CVA, ARF, Chemo, Hep., AIDS, mental health diagnosis, sleep apnea, morbid obesity)? @ -none Was patient admitted / discharged? Hospital course, mention meds given and route, prescriptions, significant lab abnormalities, going to OR and other pertinent info. @ - 35 male to the ED to the ER ER for severe shortness of breath pulmonary edema, chest x-ray positive for fluid overload and heart failure. Patient will admit for cardiology and nephrology to see Admitted Undiagnosed new problem with uncertain prognosis? @ -no Drug Therapy requiring intensive monitoring for toxicity (Heparin, Nitro, Insulin, Cardizem)? @ -no Were any procedures done? @ -no Diagnosis/symptom? @ -Pulmonary edema, CHF with fluid overload, CKD on HD Acute, or Chronic, or Acute on Chronic? @ -Acute Uncomplicated (without systemic symptoms) or Complicated (systemic symptoms)? @ -Complicated Side effects of treatment? @ -no Exacerbation, Progression, or Severe Exacerbation? @ -exacerbation Poses a threat to life or bodily function? How? (Chest pain, [place], [place], pneumonia, PE, COPD, DKA, ARF, appy, cholecystitis, CVA, Diverticulitis, Homicidal, Suicidal, threat to staff... and all critical care pts) @ -yes severe comorbid conditions and disease Reevaluation #5: Differential Dyspnea: Coronary syndrome, arrhythmia, tamponade, asthma, COPD, pulmonary embolism, pneumonia, pneumothorax, pulmonary effusion, anaphylaxis, diabetic ketoacidosis, flailed chest, pulmonary contusion, diaphragmatic rupture, anemia, neuromuscular, this is not meant to be an all-inclusive list. - Consultations Consultation #1: spoke juan brian evan for admission Medical Decision Making - Medical Decision Making 35 male to the ED to the ER ER for severe shortness of breath pulmonary edema, chest x-ray positive for fluid overload and heart failure. Patient will admit for cardiology and nephrology to see - Lab Data Result diagrams: 02/04/25 05:46 02/04/25 05:46 Lab Results 02/03/25 02/03/25 02/03/25 Range/Units 19:01 19:01 19:01 WBC 11.9 H (3.8-10.6) k/uL RBC 3.13 L (3.80-5.40) m/uL Hgb 9.9 L (11.4-16.0) gm/dL Hct 31.2 L (34.0-46.0) % MCV 99.6 (80.0-100.0) fL MCH 31.6 (25.0-35.0) pg MCHC 31.7 (31.0-37.0) g/dL RDW 18.1 H (11.5-15.5) % Plt Count 292 (150-450) k/uL MPV 8.1 Neutrophils % 82 % Lymphocytes % 12 % Monocytes % 3 % Eosinophils % 3 % Basophils % 1 % Neutrophils # 9.7 H (1.3-7.7) k/uL Lymphocytes # 1.4 (1.0-4.8) k/uL Monocytes # 0.3 (0-1.0) k/uL Eosinophils # 0.3 (0-0.7) k/uL Basophils # 0.1 (0-0.2) k/uL Hypochromasia Slight Anisocytosis Slight Macrocytosis Slight PT 12.0 (10.0-12.5) sec INR 1.1 (<1.2) APTT 23.9 (22.0-30.0) sec Sodium 127 L (137-145) mmol/L Potassium 3.8 (3.5-5.1) mmol/L Chloride 85 L (98-107) mmol/L Carbon Dioxide 28 (22-30) mmol/L Anion Gap 14 mmol/L BUN 39 H (7-17) mg/dL Creatinine 3.42 H (0.52-1.04) mg/dL Est GFR (CKD-EPI)AfAm 19 (>60 ml/min/1.73 sqM) Est GFR (CKD-EPI)NonAf 17 (>60 ml/min/1.73 sqM) Glucose 375 H (74-99) mg/dL Calcium 8.7 (8.4-10.2) mg/dL Magnesium 1.6 (1.6-2.3) mg/dL Total Bilirubin 1.0 (0.2-1.3) mg/dL AST 62 H (14-36) U/L ALT 120 H (4-34) U/L Alkaline Phosphatase 151 H (38-126) U/L Troponin I (0.000-0.034) ng/mL NT-Pro-B Natriuret Pep [id number] pg/mL Total Protein 6.7 (6.3-8.2) g/dL Albumin 4.2 (3.5-5.0) g/dL 02/03/25 Range/Units 19:01 WBC (3.8-10.6) k/uL RBC (3.80-5.40) m/uL Hgb (11.4-16.0) gm/dL Hct (34.0-46.0) % MCV (80.0-100.0) fL MCH (25.0-35.0) pg MCHC (31.0-37.0) g/dL RDW (11.5-15.5) % Plt Count (150-450) k/uL MPV Neutrophils % % Lymphocytes % % Monocytes % % Eosinophils % % Basophils % % Neutrophils # (1.3-7.7) k/uL Lymphocytes # (1.0-4.8) k/uL Monocytes # (0-1.0) k/uL Eosinophils # (0-0.7) k/uL Basophils # (0-0.2) k/uL Hypochromasia Anisocytosis Macrocytosis PT (10.0-12.5) sec INR (<1.2) APTT (22.0-30.0) sec Sodium (137-145) mmol/L Potassium (3.5-5.1) mmol/L Chloride (98-107) mmol/L Carbon Dioxide (22-30) mmol/L Anion Gap mmol/L BUN (7-17) mg/dL Creatinine (0.52-1.04) mg/dL Est GFR (CKD-EPI)AfAm (>60 ml/min/1.73 sqM) Est GFR (CKD-EPI)NonAf (>60 ml/min/1.73 sqM) Glucose (74-99) mg/dL Calcium (8.4-10.2) mg/dL Magnesium (1.6-2.3) mg/dL Total Bilirubin (0.2-1.3) mg/dL AST (14-36) U/L ALT (4-34) U/L Alkaline Phosphatase (38-126) U/L Troponin I 0.022 (0.000-0.034) ng/mL NT-Pro-B Natriuret Pep pg/mL Total Protein (6.3-8.2) g/dL Albumin (3.5-5.0) g/dL - EKG Data -: EKG Interpreted by Me (EKG Is sinus 88 VA 135 QRS 89 QTc 456) - Radiology Data Radiology results: report reviewed (CXR is positive for pulmonary edema and overload ), image reviewed Critical Care Time Critical Care Time: Yes Total Critical Care Time: 31 Disposition Clinical Impression: Hypertensive emergency, Acute pulmonary edema, Congestive heart failure, Renal failure, Pulmonary edema Disposition: ADMITTED IP TO THIS [facility] Condition: Fair Time of Disposition: 21:20
[2025-02-03 19:58] LABS: Anisocytosis Slight; Basophils # (A) 0.1 k/uL (0-0.2); Basophils % (A) 1 %; Eosinophils # (A) 0.3 k/uL (0-0.7); Eosinophils % (A) 3 %; HCT 31.2 % (34.0-46.0); HGB 9.9 gm/dL (11.4-16.0); Hypochromasia Slight; Lymphocytes # (A) 1.4 k/uL (1.0-4.8); Lymphocytes % (A) 12 %; MCH 31.6 pg (25.0-35.0); MCHC 31.7 g/dL (31.0-37.0); MCV 99.6 fL (80.0-100.0); Macrocytosis Slight; Mean Platelet Volume 8.1; Monocytes # (A) 0.3 k/uL (0-1.0); Monocytes % (A) 3 %; Neutrophils # (A) 9.7 k/uL (1.3-7.7); Neutrophils % (A) 82 %; Platelet Count 292 k/uL (150-450); RBC 3.13 m/uL (3.80-5.40); RDW 18.1 % (11.5-15.5); WBC 11.9 k/uL (3.8-10.6)
--- NOTE | 2025-02-03 20:09 | XR ---
EXAMINATION TYPE: XR chest 1V portable DATE OF EXAM: 02/03/2025 8:00 PM COMPARISON: Chest radiographs from 01/25/2025 CLINICAL INDICATION: Female, 35 years old with history of sob; [facility] TECHNIQUE: XR chest 1V portable Frontal view of the chest. FINDINGS: Lungs/Pleura: Multifocal airspace opacities. No evidence of pneumothorax or pleural effusion. Pulmonary vascularity: Unremarkable. Heart/mediastinum: Cardiomediastinal silhouette is unremarkable. Musculoskeletal: No acute osseous pathology. IMPRESSION: Multifocal airspace opacities correlate for pulmonary edema versus pneumonia. [facility], , 02/03/2025 8:07 PM
[2025-02-03] MEDS: IPRATROPIUM-ALBUTEROL 3 ML NEB INHALATION STA (20:10)
[2025-02-03 20:23] LABS: INR 1.1 (<1.2); Partial Thromboplastin Time 23.9 sec (22.0-30.0)
[2025-02-03 20:46] LABS: ALT 120 U/L (4-34); AST 62 U/L (14-36); African American GFR (CKD) 19 (>60 ml/min/1.73 sqM); Albumin 4.2 g/dL (3.5-5.0); Alkaline Phosphatase 151 U/L (38-126); Anion Gap 14 mmol/L; Blood Urea Nitrogen 39 mg/dL (7-17); Calcium 8.7 mg/dL (8.4-10.2); Carbon Dioxide 28 mmol/L (22-30); Chloride 85 mmol/L (98-107); Glucose 375 mg/dL (74-99); Magnesium 1.6 mg/dL (1.6-2.3); Non-African American GFR(CKD) 17 (>60 ml/min/1.73 sqM); Potassium 3.8 mmol/L (3.5-5.1); Sodium 127 mmol/L (137-145); Total Protein 6.7 g/dL (6.3-8.2)
[2025-02-03 21:08] LABS: NT-Pro-B-Type Natriuretic Pept 116000 pg/mL
[2025-02-03] MEDS: FUROSEMIDE 10 MG/ML 4 ML VIAL IV STA (21:43)
[2025-02-03] MEDS: ACETAMINOPHEN TAB 325 MG TAB PO PRN (23:43)
[2025-02-03] MEDS: NITROGLYCERIN OINT 1 INCH/GM PACKET TOPICAL SCH (23:44)
[2025-02-03 23:46] LABS: Glucose,Whole Blood 207 mg/dL (70-110)
--- NOTE | 2025-02-04 00:24 | P.HPIM ---
History of Present Illness H&P Date: 02/03/25 Chief Complaint: SOB Patient is a 35-year-old female with history of insulin-dependent diabetes mellitus, heart failure with preserved ejection fraction (55-66%), hypertension, ESRD on hemodialysis (M, T, T, S), hypothyroidism presents to the ER with complaint of shortness of breath. Patient states that she started to feel short of breath while sitting in a chair this evening at around 5:00 PM. She states that the shortness of breath is worse on exertion. She also started to develop a frontal headache as well. She had dialysis earlier this morning at 5:30 AM. Patient also endorses localized chest pain and describes it as a constant heavy 8 out of 10 pain. She states that they did not take off enough fluid during her dialysis today. Patient denies any fever, chills, vision changes, abdominal pain, urinary symptoms. EKG EKG independent interpreted displaying sinus rhythm, vent rate 88 bpm, QTc 456 ms CXR independently interpreted displaying multifocal areas of opacity likely pulmonary edema proBNP 116,000, troponin 0.022, WBC 11.9, Hgb 9.9, HCT 31.2, platelet 292, INR 1.1, sodium 127, potassium 3.8, chloride 85, BUN 39, creatinine 3.42, glucose 375, AST 62, ALT 120, alk phos 151 T98.9 F, LA 92, RR 20, BP 167/112, O2 sat 99% on room air ED documentation reviewed. Review of systems: Pertinent positives and negatives as discussed in HPI, a complete review of systems was performed and all other systems are negative. Social history: Tobacco: 4 cigarettes a day x 10 years Alcohol: no Recreational drugs: Marijuana 4 months ago Travel: No Occupation: No Physical examination: Vital signs reviewed General: non toxic, no distress, appears at stated age, normal weight Derm: no unusual rashes/lesions, warm Head: atraumatic, normocephalic, symmetric Eyes: EOMI, anicteric sclera, pupils equal round reactive to light ENT: Nose and ears atraumatic Neck: No cervical lymphadenopathy, trachea midline, supple Mouth: no lip lesion, mucus membranes moist Cardiovascular: S1S2 reg, no murmur, positive dorsalis pedis pulse bilateral, no edema, left forearm AV graft Lungs: Decreased breath sounds bilaterally Abdominal: soft, nontender to palpation, no guarding Ext: muscle strength 5 out of 5 in all 4 extremities grossly, no gross muscle atrophy Neuro: CN II-XI grossly intact, no gross focal neuro deficits Psych: Alert, oriented to person, place, and time Assessment/Plan: Patient is a 35-year-old female with history of type 1 diabetes mellitus, GERD, hypertension, ESRD on hemodialysis (M, T, T, S), hypothyroidism presents to the ER with complaint of shortness of breath. #. End-stage renal disease on hemodialysis (Wednesday) #. Acute pulmonary edema #. Hypervolemia #. Hypertensive urgency #. Hypervolemic hyponatremia 80 mg IV Lasix given once by ED, pt oliguric Nitro-Bid Oint given by ED Continue Procardia XL 60 mg p.o. twice daily, labetalol 500 mg PO BID, hydralazine 100 mg PO TID, clonidine 0.3 mg PO TID I's and O's strict and daily weights Follow-up CMP and BMP Renal diet Cardiac telemetry Nephrology consulted Cardiology consulted Of note previous echocardiogram on 12/22/2024 showed small to moderate pericardial effusion, EF 55-60% #. Insulin-dependent diabetes mellitus, uncontrolled Glucose on admission 375 Insulin SQ sliding scale Lantus 10 units in a.m. and 10 units in p.m. Humalog 8 units 3 times daily with meals Accu-Cheks ACHS Monitor for hypoglycemia #. Anemia of chronic disease #. Leukocytosis Patient with longstanding history of anemia chronic disease Leukocytosis likely reactive Follow-up CBC Chronic: #. Seizure disorder: Resume Depakote #. Hypothyroidism: Resume Synthroid 100 mcg PO QD and 75 mcg PO QD Resume rest of home medications once reconciled. F: N/A E: Replete electrolytes as needed N: Renal diet A: Independently ambulatory at baseline DVT prophylaxis: Heparin 5000 units SQ every 8 hours The patient is admitted as observation with an anticipated less than 2 midnight stay for evaluation of ESR on hemodialysis with fluid overload. CODE STATUS: Full code Discussed with: Patient Anticipated discharge place: Pending clinical course Jori Aviles MD PGY-1 IM Dictation was produced using [employer] dictation software. please excuse any grammatical, word or spelling errors. I have seen and evaluated the patient today. Discussed with the resident and agree with the residents finding and plan as documented in the resident's note. Changes highlighted in blue font. 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 Past Anesthesia/Blood Transfusion Reactions: Previous Problems w/ Anesthesia Additional Past Anesthesia/Blood Transfusion Reaction / Comment(s): confusion Past Psychological History: Anxiety, Depression Smoking Status: Current every day smoker Past Alcohol Use History: None Reported Past Drug Use History: Marijuana - Past Family History Father History Unknown: Yes Family Medical History: Unable to Obtain Mother History Unknown: Yes Family Medical History: No Reported History Grandfather History Unknown: Yes Family Medical History: Coronary Artery Disease (CAD) Additional Family Medical History / Comment(s): Diabetes mellitus type 2 Medications and Allergies Home Medications Medication Instructions Recorded Confirmed Type Docusate [Colace] 100 mg PO DAILY@79902/05/24 01/22/25 History Lidocaine 4% Patch 1 patch TOPICAL DAILY@79902/05/24 01/22/25 History Magnesium Hydroxide [Milk of 7,200 mg PO DAILY PRN 02/05/24 01/22/25 History Magnesia Concentrate] Ipratropium-Albuterol Nebulize 3 ml INHALATION RT-TID PRN each 02/14/24 01/22/25 Rx [Duoneb 0.5 mg-3 mg/3 ml Soln] polyethylene glycoL 3350 [Miralax] 17 gm PO AC-LUNCH #527 gm 02/14/24 01/22/25 Rx Acetaminophen [Tylenol] 650 mg PO Q4H PRN 02/18/24 01/22/25 History Biotene Dry Mouth/Throat 10 ml PO BID PRN 02/18/24 01/22/25 History Melatonin 1 mg PO HS tab 02/25/24 01/22/25 Rx Darbepoetin Artur [Aranesp] 40 mcg SQ MO 03/14/24 01/22/25 History Loratadine [Claritin] 5 mg PO DAILY tab 03/30/24 01/22/25 Rx Aspirin 81 mg PO DAILY@0800 #30 tab 05/18/24 01/22/25 Rx Famotidine [Pepcid] 20 mg PO BID #60 tab 07/11/24 01/22/25 Rx Levothyroxine Sodium [Synthroid] 175 mcg PO DAILY@0608/14/24 01/22/25 History Metoclopramide [Reglan] 5 mg PO AC-TID PRN 08/14/24 01/22/25 History Pantoprazole [Protonix] 40 mg PO DAILY@0608/14/24 01/22/25 History Sertraline [Zoloft] 200 mg PO DAILY@0800 08/14/24 01/22/25 History ALPRAZolam [Xanax] 0.25 mg PO BID PRN 09/04/24 01/22/25 History Calcium Acetate [PhosLo] 667 mg PO DAILY PRN 09/04/24 01/22/25 History Colchicine [Colcrys] 0.3 mg PO DAILY #15 each 09/23/24 01/22/25 Rx Ondansetron Odt [Zofran ODT] 4 mg PO Q8HR PRN 11/02/24 01/22/25 History Atorvastatin [Lipitor] 40 mg PO HS #0 11/23/24 01/22/25 Rx oxyCODONE-APAP 10-325MG [Percocet 1 tab PO Q4HR PRN #18 tab 11/23/24 01/22/25 Rx 10-325 mg] Folic Acid/Vit B Complex and C 0.8 mg PO DAILY 12/20/24 01/22/25 History [Davina-Mayte Tablet] hydrALAZINE HCL [Apresoline] 100 mg PO TID 30 Days #90 tab 01/01/25 01/22/25 Rx traZODone HCL [Desyrel] 50 mg PO HS #20 tab 01/01/25 01/22/25 Rx Divalproex ER [Depakote ER] 500 mg PO BID@0800,1700 #60 tab 01/02/25 01/22/25 Rx Isosorbide Mononitrate ER [Imdur] 120 mg PO DAILY #60 tab 01/02/25 01/22/25 Rx Labetalol [Trandate] 500 mg PO BID 30 Days #150 tab 01/02/25 01/22/25 Rx NIFEdipine XL [Procardia XL] 60 mg PO BID 30 Days #60 tab 01/02/25 01/22/25 Rx Gabapentin [Neurontin] 100 mg PO BID 30 Days #60 cap 01/03/25 01/22/25 Rx Linagliptin [Tradjenta] 5 mg PO DAILY #30 tab 01/03/25 01/22/25 Rx Insulin Lispro [humaLOG Kwikpen] 8 unit SQ AC-TID 01/22/25 01/22/25 History Insulin Lispro [humaLOG Kwikpen] See Protocol SQ AC-TID 01/22/25 01/22/25 History cloNIDine HCL [Catapres] 0.3 mg PO TID 01/22/25 01/22/25 History Butalb/APAP/Caff 50-325-40Mg 1 tab PO Q4HR PRN #12 tab 01/26/25 Rx [Fioricet 50-325-40] Allergies Allergy/AdvReac Type Severity Reaction Status Date / Time hydromorphone HCl Allergy Anaphylaxis Verified 02/03/25 19:02 [From Dilaudid] propoxyphene Allergy Rash/Hives Verified 02/03/25 19:02 [From Darvocet-N] tramadol Allergy Anaphylaxis Verified 02/03/25 19:02 ibuprofen [From Motrin] AdvReac unable to Verified 02/03/25 19:02 take due to kidney disease venom-honey bee AdvReac passes out Verified 02/03/25 19:02 [bee venom (honey bee)] Physical Exam Vitals: Vital Signs Temp Pulse Resp BP Pulse Ox 02/03/25 20:21 86 02/03/25 20:11 89 02/03/25 20:01 92 13 186/99 97 02/03/25 19:02 20 02/03/25 18:59 98.9 F 92 20 167/112 99 Intake and Output 02/03/25 02/03/25 02/03/25 06:59 14:59 22:59 Other: Weight 61.689 kg Results CBC & Chem 7: 02/03/25 19:01 02/03/25 19:01 Labs: Abnormal Lab Results - Last 24 Hours (Table) 02/03/25 02/03/25 Range/Units 19:01 19:01 WBC 11.9 H (3.8-10.6) k/uL RBC 3.13 L (3.80-5.40) m/uL Hgb 9.9 L (11.4-16.0) gm/dL Hct 31.2 L (34.0-46.0) % RDW 18.1 H (11.5-15.5) % Neutrophils # 9.7 H (1.3-7.7) k/uL Sodium 127 L (137-145) mmol/L Chloride 85 L (98-107) mmol/L BUN 39 H (7-17) mg/dL Creatinine 3.42 H (0.52-1.04) mg/dL Glucose 375 H (74-99) mg/dL AST 62 H (14-36) U/L ALT 120 H (4-34) U/L Alkaline Phosphatase 151 H (38-126) U/L
[2025-02-04] MEDS: hydrALAZINE HCL 50 MG TAB PO SCH (00:37)
[2025-02-04] MEDS: LABETALOL 200 MG TAB PO SCH (00:38)
[2025-02-04] MEDS: DIVALPROEX ER 500 MG TAB.ER.24H PO SCH (00:38)
[2025-02-04] MEDS: cloNIDine HCL 0.1 MG TAB PO SCH (00:38)
[2025-02-04] MEDS: oxyCODONE-APAP 10-325MG 1 EACH TAB PO PRN (03:42)
[2025-02-04 04:47] LABS: Glucose,Whole Blood 431 mg/dL (70-110)
[2025-02-04] MEDS: INSULIN GLARGINE (LANTUS) 100 UNIT/ML SYR SQ SCH (06:14)
[2025-02-04 06:15] LABS: Glucose,Whole Blood 409 mg/dL (70-110)
[2025-02-04] MEDS: LEVOTHYROXINE 75 MCG TAB PO SCH (06:15)
[2025-02-04] MEDS: LEVOTHYROXINE 100 MCG TAB PO SCH (06:15)
[2025-02-04 06:21] LABS: ALT 120 U/L (4-34); AST 41 U/L (14-36); African American GFR (CKD) 15 (>60 ml/min/1.73 sqM); Albumin 4.1 g/dL (3.5-5.0); Albumin/Globulin Ratio 1.8; Alkaline Phosphatase 136 U/L (38-126); Anion Gap 16 mmol/L; Blood Urea Nitrogen 51 mg/dL (7-17); Calcium 8.6 mg/dL (8.4-10.2); Carbon Dioxide 27 mmol/L (22-30); Chloride 84 mmol/L (98-107); Globulin 2.3 g/dL; Glucose 386 mg/dL (74-99); Non-African American GFR(CKD) 13 (>60 ml/min/1.73 sqM); Phosphorus 5.3 mg/dL (2.5-4.5); Potassium 4.1 mmol/L (3.5-5.1); Sodium 127 mmol/L (137-145); Total Protein 6.4 g/dL (6.3-8.2)
[2025-02-04 06:35] LABS: Anisocytosis Slight; Basophils # (A) 0.1 k/uL (0-0.2); Basophils % (A) 1 %; Eosinophils # (A) 0.6 k/uL (0-0.7); Eosinophils % (A) 7 %; HCT 31.6 % (34.0-46.0); Hypochromasia Marked; Lymphocytes # (A) 1.2 k/uL (1.0-4.8); Lymphocytes % (A) 15 %; MCH 32.4 pg (25.0-35.0); MCHC 31.5 g/dL (31.0-37.0); MCV 102.6 fL (80.0-100.0); Macrocytosis Moderate; Mean Platelet Volume 8.2; Monocytes # (A) 0.3 k/uL (0-1.0); Monocytes % (A) 4 %; Neutrophils # (A) 6.2 k/uL (1.3-7.7); Neutrophils % (A) 73 %; Platelet Count 268 k/uL (150-450); RBC 3.08 m/uL (3.80-5.40); RDW 18.2 % (11.5-15.5); WBC 8.5 k/uL (3.8-10.6)
[2025-02-04 07:58] LABS: Glucose,Whole Blood 398 mg/dL (70-110)
[2025-02-04] MEDS: INSULIN LISPRO (HumaLOG) 100 UNIT/ML 10 mL VL SQ SCH ×2 (08:50)
[2025-02-04] MEDS: GABAPENTIN 100 MG CAP PO SCH (08:57)
[2025-02-04] MEDS: HEPARIN SODIUM,PORCINE 5,000 UNIT/ML 1 ML VIAL SQ SCH (08:57)
[2025-02-04] MEDS: ISOSORBIDE MONONITRATE ER 60 MG TAB.ER.24H PO SCH (08:57)
--- NOTE | 2025-02-04 11:37 | P.CRDCN ---
History of Present Illness Consult date: 02/04/25 Consult reason: congestive heart failure History of present illness: The patient is a 35-year-old female with multiple comorbid conditions, who fo llows with Dr. Avila in the office. She does have end-stage renal disease and is on dialysis. Patient presented to the hospital with hypertensive urgency and shortness of breath. Cardiology has been consulted for congestive heart failure. Patient states she has been compliant with her medication regimen, as well as dialysis. DIAGNOSTICS: EKG shows sinus rhythm with nonspecific T wave abnormality Chest x-ray shows pulmonary vascular congestion consistent with fluid overload Lab data: WBC 8.5, hemoglobin 10.0, hematocrit 31.6, platelet 260, sodium 127, potassium 4.1, BUN 51, creatinine 4.22, magnesium 1.7, AST 41, ALT 120 REVIEW OF SYSTEMS: No fever or chills. No cough or expectoration. No diaphoresis. Patient denies dizziness, blurred vision, double vision. Patient denies any stomach discomfort. No nausea, vomiting. No hematochezia. No hematemesis. Denies any black stools or blood in his stools. Denies dysuria or hematuria. Denies chest pain or pressure. No difficulty breathing. Positive for headache. Positive for weakness and fatigue. PHYSICAL EXAMINATION: This is a 35-year-old female in no apparent distress at the time of my examination. HEENT: Head is atraumatic, normocephalic. Pupils are equal, round. Sclerae anicteric. Conjunctivae are clear. Mucous membranes of the mouth are moist. Neck is supple. There is no jugular venous distention. No carotid bruit is heard. CHEST EXAMINATION: Lungs are coarse to auscultation. No chest wall tenderness is noted on palpation or with deep breathing. Rhonchi throughout. HEART EXAMINATION: Heart regular rate and rhythm. S1, S2 heard. No murmurs, gallops or rub. ABDOMEN: Soft, nontender. Bowel sounds are heard. No organomegaly noted. EXTREMITIES: 2+ peripheral pulses with no evidence of peripheral edema and no calf tenderness noted. NEUROLOGIC EXAMINATION: Patient is awake, alert and oriented x3. FINAL ASSESSMENT AND PLAN: Congestive heart failure exacerbation, diastolic Uncontrolled hypertension End-stage renal disease, on dialysis Type 1 diabetes mellitus Chronic anemia History of seizures PLAN: Patient is unsure of history regarding hyperkalemia. If cleared by nephrology, recommend starting angiotensin receptor stephanie in addition to her current antihypertensive regimen. If unable to do so, consider minoxidil Continue home antihypertensive regimen No need to repeat echocardiogram as one was recently completed in December Further recommendations to follow I am dictating on behalf of Dr Clinton Carmen's history/physical and assessment/plan. 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 Past Anesthesia/Blood Transfusion Reactions: Previous Problems w/ Anesthesia Additional Past Anesthesia/Blood Transfusion Reaction / Comment(s): confusion Past Psychological History: Anxiety, Depression Smoking Status: Current every day smoker Past Alcohol Use History: None Reported Past Drug Use History: Marijuana - Past Family History Father History Unknown: Yes Family Medical History: Unable to Obtain Mother History Unknown: Yes Family Medical History: No Reported History Grandfather History Unknown: Yes Family Medical History: Coronary Artery Disease (CAD) Additional Family Medical History / Comment(s): Diabetes mellitus type 2 Medications and Allergies Home Medications Medication Instructions Recorded Confirmed Type Docusate [Colace] 100 mg PO DAILY@79902/05/24 02/04/25 History Lidocaine 4% Patch 1 patch TOPICAL DAILY@79902/05/24 02/04/25 History Magnesium Hydroxide [Milk of 7,200 mg PO DAILY PRN 02/05/24 02/04/25 History Magnesia Concentrate] Ipratropium-Albuterol Nebulize 3 ml INHALATION RT-TID PRN each 02/14/24 02/04/25 Rx [Duoneb 0.5 mg-3 mg/3 ml Soln] polyethylene glycoL 3350 [Miralax] 17 gm PO AC-LUNCH #527 gm 02/14/24 02/04/25 Rx Acetaminophen [Tylenol] 650 mg PO Q4H PRN 02/18/24 02/04/25 History Biotene Dry Mouth/Throat 10 ml PO BID PRN 02/18/24 02/04/25 History Melatonin 1 mg PO HS tab 02/25/24 02/04/25 Rx Darbepoetin Artur [Aranesp] 40 mcg SQ MO 03/14/24 02/04/25 History Loratadine [Claritin] 5 mg PO DAILY tab 03/30/24 02/04/25 Rx Aspirin 81 mg PO DAILY@0800 #30 tab 05/18/24 02/04/25 Rx Famotidine [Pepcid] 20 mg PO BID #60 tab 07/11/24 02/04/25 Rx Levothyroxine Sodium [Synthroid] 175 mcg PO DAILY@0600 08/14/24 02/04/25 History Metoclopramide [Reglan] 5 mg PO AC-TID PRN 08/14/24 02/04/25 History Pantoprazole [Protonix] 40 mg PO DAILY@0600 08/14/24 02/04/25 History Sertraline [Zoloft] 200 mg PO DAILY@0800 08/14/24 02/04/25 History ALPRAZolam [Xanax] 0.25 mg PO BID PRN 09/04/24 02/04/25 History Calcium Acetate [PhosLo] 667 mg PO DAILY PRN 09/04/24 02/04/25 History Colchicine [Colcrys] 0.3 mg PO DAILY #15 each 09/23/24 02/04/25 Rx Ondansetron Odt [Zofran ODT] 4 mg PO Q8HR PRN 11/02/24 02/04/25 History Atorvastatin [Lipitor] 40 mg PO HS #0 11/23/24 02/04/25 Rx oxyCODONE-APAP 10-325MG [Percocet 1 tab PO Q4HR PRN #18 tab 11/23/24 02/04/25 Rx 10-325 mg] Folic Acid/Vit B Complex and C 0.8 mg PO DAILY 02/05/25 03/23/25 History [Davina-Mayte Tablet] hydrALAZINE HCL [Apresoline] 100 mg PO TID 30 Days #90 tab 01/01/25 02/04/25 Rx traZODone HCL [Desyrel] 50 mg PO HS #20 tab 01/01/25 02/04/25 Rx Divalproex ER [Depakote ER] 500 mg PO BID@0800,1700 #60 tab 01/02/25 02/04/25 Rx Isosorbide Mononitrate ER [Imdur] 120 mg PO DAILY #60 tab 01/02/25 02/04/25 Rx Labetalol [Trandate] 500 mg PO BID 30 Days #150 tab 01/02/25 02/04/25 Rx NIFEdipine XL [Procardia XL] 60 mg PO BID 30 Days #60 tab 01/02/25 02/04/25 Rx Gabapentin [Neurontin] 100 mg PO BID 30 Days #60 cap 01/03/25 02/04/25 Rx Linagliptin [Tradjenta] 5 mg PO DAILY #30 tab 01/03/25 02/04/25 Rx Insulin Lispro [humaLOG Kwikpen] 8 unit SQ AC-TID 01/22/25 02/04/25 History Insulin Lispro [humaLOG Kwikpen] See Protocol SQ AC-TID 01/22/25 02/04/25 History cloNIDine HCL [Catapres] 0.3 mg PO TID 01/22/25 02/04/25 History Butalb/APAP/Caff 50-325-40Mg 1 tab PO Q4HR PRN #12 tab 01/26/25 02/04/25 Rx [Fioricet 50-325-40] Allergies Allergy/AdvReac Type Severity Reaction Status Date / Time hydromorphone HCl Allergy Anaphylaxis Verified 02/04/25 10:55 [From Dilaudid] propoxyphene Allergy Rash/Hives Verified 02/04/25 10:55 [From Darvocet-N] tramadol Allergy Anaphylaxis Verified 02/04/25 10:55 ibuprofen [From Motrin] AdvReac unable to Verified 02/04/25 10:55 take due to kidney disease venom-honey bee AdvReac passes out Verified 02/04/25 10:55 [bee venom (honey bee)] Physical Exam Vitals: Vital Signs Temp Pulse Resp BP Pulse Ox 02/04/25 07:00 82 15 153/88 100 02/04/25 02:55 77 13 166/105 98 02/04/25 02:00 98.3 F 74 17 159/98 98 02/04/25 01:30 84 19 173/107 98 02/04/25 00:00 98 19 209/119 98 02/03/25 22:40 89 20 197/111 98 02/03/25 20:21 86 02/03/25 20:11 89 02/03/25 20:01 92 13 186/99 97 02/03/25 19:02 20 02/03/25 18:59 98.9 F 92 20 167/112 99 Intake and Output 02/03/25 02/04/25 02/04/25 22:59 06:59 14:59 Output Total 0 Balance 0 Output: Urine 0 Uretheral (Razo) 0 Other: Weight 61.689 kg Results 02/04/25 05:46 02/04/25 05:46 Cardiac Enzymes 02/03/25 02/03/25 02/04/25 Range/Units 19:01 19:01 05:46 AST 62 H 41 H (14-36) U/L Troponin I 0.022 (0.000-0.034) ng/mL Coagulation 02/03/25 Range/Units 19:01 PT 12.0 (10.0-12.5) sec APTT 23.9 (22.0-30.0) sec CBC 02/03/25 02/04/25 Range/Units 19:01 05:46 WBC 11.9 H 8.5 (3.8-10.6) k/uL RBC 3.13 L 3.08 L (3.80-5.40) m/uL Hgb 9.9 L 10.0 L (11.4-16.0) gm/dL Hct 31.2 L 31.6 L (34.0-46.0) % Plt Count 292 268 (150-450) k/uL Comprehensive Metabolic Panel 02/03/25 02/04/25 Range/Units 19:01 05:46 Sodium 127 L 127 L (137-145) mmol/L Potassium 3.8 4.1 (3.5-5.1) mmol/L Chloride 85 L 84 L (98-107) mmol/L Carbon Dioxide 28 27 (22-30) mmol/L BUN 39 H 51 H (7-17) mg/dL Creatinine 3.42 H 4.22 H (0.52-1.04) mg/dL Glucose 375 H 386 H (74-99) mg/dL Calcium 8.7 8.6 (8.4-10.2) mg/dL AST 62 H 41 H (14-36) U/L ALT 120 H 120 H (4-34) U/L Alkaline Phosphatase 151 H 136 H (38-126) U/L Total Protein 6.7 6.4 (6.3-8.2) g/dL Albumin 4.2 4.1 (3.5-5.0) g/dL Current Medications Generic Name Dose Route Start Last Admin Trade Name Freq PRN Reason Stop Dose Admin Acetaminophen 650 mg 02/03/25 22:48 02/04/25 06:00 Acetaminophen Tab 325 Mg Tab PO 650 mg Q6HR PRN Administration Fever and/ or Pain Clonidine 0.3 mg 02/03/25 23:45 02/04/25 08:52 Clonidine Hcl 0.1 Mg Tab PO 0.3 mg TID VY Administration Divalproex Sodium 500 mg 02/04/25 00:01 02/04/25 00:38 Divalproex Er 500 Mg Tab.Er.24h PO 500 mg BID@0800,1700 VY Administration Gabapentin 100 mg 02/04/25 09:00 02/04/25 08:57 Gabapentin 100 Mg Cap PO 100 mg BID VY Administration Heparin Sodium (Porcine) 5,000 unit 02/04/25 08:00 02/04/25 09:00 Heparin Sodium,Porcine 5,000 Unit/Ml 1 Ml Vial SQ Not Given Q8HR VY Hydralazine HCl 100 mg 02/03/25 23:45 02/04/25 08:54 Hydralazine Hcl 50 Mg Tab PO 100 mg TID VY Administration Insulin Glargine 10 unit 02/04/25 07:00 02/04/25 06:14 Insulin Glargine (Lantus) 100 Unit/Ml Syr SQ 10 unit BID@0700,2100 [facility] Administration Insulin Human Lispro 8 unit 02/04/25 07:30 02/04/25 08:50 Insulin Lispro (Humalog) 100 Unit/Ml 10 Ml Vl SQ 8 unit AC-TID VY Administration Insulin Human Lispro 0 unit 02/04/25 07:30 02/04/25 08:50 Insulin Lispro (Humalog) 100 Unit/Ml 10 Ml Vl SQ 5 unit ACHS VY Administration Protocol Isosorbide Mononitrate 120 mg 02/04/25 09:00 02/04/25 08:57 Isosorbide Mononitrate Er 60 Mg Tab.Er.24h PO 120 mg DAILY VY Administration Labetalol HCl 500 mg 02/03/25 23:45 02/04/25 08:54 Labetalol 200 Mg Tab PO 500 mg BID VY Administration Levothyroxine Sodium 100 mcg 02/04/25 06:00 02/04/25 06:15 Levothyroxine 100 Mcg Tab PO 100 mcg DAILY@0600 [facility] Administration Levothyroxine Sodium 75 mcg 02/04/25 06:00 02/04/25 06:15 Levothyroxine 75 Mcg Tab PO 75 mcg DAILY@0600 [facility] Administration Melatonin 1 mg 02/04/25 21:00 Melatonin 1 Mg Tab PO [facility] Nifedipine 60 mg 02/03/25 23:45 02/04/25 08:58 Nifedipine Xl 60 Mg Tab.Er.24 PO 60 mg BID [facility] Administration Nitroglycerin 1 inch 02/04/25 00:00 02/04/25 06:15 Nitroglycerin Oint 1 Inch/Gm Packet TOPICAL 02/05/25 00:00 1 inch Q6HR VY Administration Oxycodone/Acetaminophen 1 each 02/04/25 03:04 02/04/25 08:51 Oxycodone-Apap 10-325mg 1 Each Tab PO 1 each Q4HR PRN Administration Pain SCALE 6-10 Trazodone HCl 50 mg 02/04/25 21:00 Trazodone Hcl 50 Mg Tab PO [facility] Intake and Output 02/03/25 02/04/25 02/04/25 22:59 06:59 14:59 Output Total 0 Balance 0 Output: Urine 0 Uretheral (Razo) 0 Other: Weight 61.689 kg 02/04/25 05:46 02/04/25 05:46
[2025-02-04 11:55] LABS: Glucose,Whole Blood 454 mg/dL (70-110)
--- NOTE | 2025-02-04 12:31 | P.NPCON ---
History of Present Illness - Reason for Consult end stage renal disease - History of Present Illness Patient is a 35-year-old female with end-stage renal disease maintained on hemodialysis 4 times a week. She is admitted to the hospital with complaints of shortness of breath and nausea. Blood sugar has been elevated in the 400 range. She did have dialysis yesterday with UF of close to 4 L. Blood pressure is elevated with systolic in the 180s to 190 range, now improved. Chest x-ray shows pulmonary vascular congestion. Patient is currently comfortable, maintained on 2 L nasal cannula. 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 Past Anesthesia/Blood Transfusion Reactions: Previous Problems w/ Anesthesia Additional Past Anesthesia/Blood Transfusion Reaction / Comment(s): confusion Past Psychological History: Anxiety, Depression Smoking Status: Current every day smoker Past Alcohol Use History: None Reported Past Drug Use History: Marijuana - Past Family History Father History Unknown: Yes Family Medical History: Unable to Obtain Mother History Unknown: Yes Family Medical History: No Reported History Grandfather History Unknown: Yes Family Medical History: Coronary Artery Disease (CAD) Additional Family Medical History / Comment(s): Diabetes mellitus type 2 Medications and Allergies Home Medications Medication Instructions Recorded Confirmed Type Docusate [Colace] 100 mg PO DAILY@0800 02/05/24 02/04/25 History Lidocaine 4% Patch 1 patch TOPICAL DAILY@00 02/05/24 02/04/25 History Magnesium Hydroxide [Milk of 7,200 mg PO DAILY PRN 02/05/24 02/04/25 History Magnesia Concentrate] Ipratropium-Albuterol Nebulize 3 ml INHALATION RT-TID PRN each 02/14/24 Rx [Duoneb 0.5 mg-3 mg/3 ml Soln] polyethylene glycoL 3350 [Miralax] 17 gm PO AC-LUNCH #527 gm 02/14/24 02/04/25 Rx Acetaminophen [Tylenol] 650 mg PO Q4H PRN 02/18/24 02/04/25 History Biotene Dry Mouth/Throat 10 ml PO BID PRN 02/18/24 02/04/25 History Melatonin 1 mg PO HS tab 02/25/24 02/04/25 Rx Darbepoetin Artur [Aranesp] 40 mcg SQ MO 03/14/24 02/04/25 History Loratadine [Claritin] 5 mg PO DAILY tab 03/30/24 02/04/25 Rx Aspirin 81 mg PO DAILY@0800 #30 tab 05/18/24 02/04/25 Rx Famotidine [Pepcid] 20 mg PO BID #60 tab 07/11/24 02/04/25 Rx Levothyroxine Sodium [Synthroid] 175 mcg PO DAILY@0600 08/14/24 02/04/25 History Metoclopramide [Reglan] 5 mg PO AC-TID PRN 08/14/24 02/04/25 History Pantoprazole [Protonix] 40 mg PO DAILY@0600 08/14/24 02/04/25 History Sertraline [Zoloft] 200 mg PO DAILY@0800 08/14/24 02/04/25 History ALPRAZolam [Xanax] 0.25 mg PO BID PRN 09/04/24 02/04/25 History Calcium Acetate [PhosLo] 667 mg PO DAILY PRN 09/04/24 02/04/25 History Colchicine [Colcrys] 0.3 mg PO DAILY #15 each 09/23/24 02/04/25 Rx Ondansetron Odt [Zofran ODT] 4 mg PO Q8HR PRN 11/02/24 02/04/25 History Atorvastatin [Lipitor] 40 mg PO HS #0 11/23/24 02/04/25 Rx oxyCODONE-APAP 10-325MG [Percocet 1 tab PO Q4HR PRN #18 tab 11/23/24 02/04/25 Rx 10-325 mg] Folic Acid/Vit B Complex and C 0.8 mg PO DAILY 12/20/24 02/04/25 History [Davina-Mayte Tablet] hydrALAZINE HCL [Apresoline] 100 mg PO TID 30 Days #90 tab 01/01/25 02/04/25 Rx traZODone HCL [Desyrel] 50 mg PO HS #20 tab 01/01/25 02/04/25 Rx Divalproex ER [Depakote ER] 500 mg PO BID@0800,1700 #60 tab 01/02/25 02/04/25 Rx Isosorbide Mononitrate ER [Imdur] 120 mg PO DAILY #60 tab 01/02/25 02/04/25 Rx Labetalol [Trandate] 500 mg PO BID 30 Days #150 tab 01/02/25 02/04/25 Rx NIFEdipine XL [Procardia XL] 60 mg PO BID 30 Days #60 tab 01/02/25 02/04/25 Rx Gabapentin [Neurontin] 100 mg PO BID 30 Days #60 cap 01/03/25 02/04/25 Rx Linagliptin [Tradjenta] 5 mg PO DAILY #30 tab 01/03/25 02/04/25 Rx Insulin Lispro [humaLOG Kwikpen] 8 unit SQ AC-TID 01/22/25 02/04/25 History Insulin Lispro [humaLOG Kwikpen] See Protocol SQ AC-TID 01/22/25 02/04/25 History cloNIDine HCL [Catapres] 0.3 mg PO TID 01/22/25 02/04/25 History Butalb/APAP/Caff 50-325-40Mg 1 tab PO Q4HR PRN #12 tab 01/26/25 02/04/25 Rx [Fioricet 50-325-40] Allergies Allergy/AdvReac Type Severity Reaction Status Date / Time hydromorphone HCl Allergy Anaphylaxis Verified 02/04/25 10:55 [From Dilaudid] propoxyphene Allergy Rash/Hives Verified 02/04/25 10:55 [From Darvocet-N] tramadol Allergy Anaphylaxis Verified 02/04/25 10:55 ibuprofen [From Motrin] AdvReac unable to Verified 02/04/25 10:55 take due to kidney disease venom-honey bee AdvReac passes out Verified 02/04/25 10:55 [bee venom (honey bee)] Physical Exam Vitals: Vital Signs Temp Pulse Resp BP Pulse Ox 02/04/25 10:00 84 18 124/85 99 02/04/25 09:00 92 18 149/95 99 02/04/25 08:00 84 16 162/94 99 02/04/25 07:00 82 15 153/88 100 02/04/25 02:55 77 13 166/105 98 02/04/25 02:00 98.3 F 74 17 159/98 98 02/04/25 01:30 84 19 173/107 98 02/04/25 00:00 98 19 209/119 98 02/03/25 22:40 89 20 197/111 98 02/03/25 20:21 86 02/03/25 20:11 89 02/03/25 20:01 92 13 186/99 97 02/03/25 19:02 20 02/03/25 18:59 98.9 F 92 20 167/112 99 Intake and Output 02/03/25 02/04/25 02/04/25 22:59 06:59 14:59 Output Total 0 Balance 0 Output: Urine 0 Uretheral (Rzao) 0 Other: Weight 61.689 kg Patient is awake, comfortable, no acute distress. Examination of the heart S1 and S2 Examination of the lungs bilateral breath sounds are heard Abdomen is soft nontender Examination of lower extremities shows no significant edema PRIMARY TEACHER exam grossly intact Results - Lab Results Most recent lab results Calcium 8.6 mg/dL (8.4-10.2) 02/04/25 05:46 Phosphorus 5.3 mg/dL (2.5-4.5) H 02/04/25 05:46 Magnesium 1.7 mg/dL (1.5-2.4) 02/04/25 05:46 02/04/25 05:46 02/04/25 05:46 Assessment and Plan Assessment: 1. End-stage renal disease on hemodialysis on Wednesday schedule. Maintained on 4 days a week due to volume overload 2. Volume overload 3. Uncontrolled diabetes 4. CKD mineral bone disorder 5. Hypertension, volume related Plan: Hemodialysis in a.m. Continue home antihypertensive regimen Control blood sugars Resume PhosLo with meals Thank you for the consultation. We will continue to follow the patient with you during her hospitalization.
[2025-02-04 17:29] LABS: Glucose,Whole Blood 220 mg/dL (70-110)
[2025-02-04 20:43] LABS: Glucose,Whole Blood 209 mg/dL (70-110)
[2025-02-04] MEDS ORDERED: INSULIN GLARGINE (LANTUS) 100 UNIT/ML SYR SQ SCH (21:00)
[2025-02-04] MEDS: traZODone HCL 50 MG TAB PO SCH (21:26)
[2025-02-04] MEDS: MELATONIN 1 MG TAB PO SCH (21:27)
[2025-02-05 05:54] LABS: Glucose,Whole Blood 231 mg/dL (70-110)
--- NOTE | 2025-02-05 09:07 | P.PN ---
Subjective Patient is seen in follow-up for end-stage renal disease. Tolerating dialysis well. On room air. Denies chest pain or shortness of breath. Vital signs are stable. General: No acute distress. HEENT: Head exam is unremarkable. LUNGS: No audible rhonchi or wheezes. HEART: Rate and Rhythm are regular. ABDOMEN: Nontender. EXTREMITITES: No edema. Objective - Vital Signs Vital signs: Vital Signs Temp 97.5 F L 02/05/25 07:00 Pulse 75 02/05/25 07:00 Resp 16 02/05/25 07:00 BP 119/72 02/05/25 07:00 Pulse Ox 100 02/05/25 07:00 FiO2 Intake & Output 02/04/25 02/05/25 02/05/25 18:59 06:59 18:59 Output Total 0 55 Balance 0 -55 Weight 61.689 kg 71.7 kg Output: Urine 0 55 - Labs CBC & Chem 7: 02/04/25 05:46 02/04/25 05:46 Labs: Abnormal Lab Results - Last 24 Hours (Table) 02/04/25 02/04/25 02/04/25 Range/Units 11:53 17:12 20:42 POC Glucose (mg/dL) 454 H 220 H 209 H (70-110) mg/dL 02/05/25 Range/Units 05:53 POC Glucose (mg/dL) 231 H (70-110) mg/dL Assessment and Plan Plan: Assessment: 1. End-stage renal disease maintained on hemodialysis on Wednesday. 2. Volume overload. Improved with diuresis. 3. Hypervolemic hyponatremia with component of hypertonicity from hyperglycemia. 4. Hypertension with chronic kidney disease. Controlled. 5. Diabetes mellitus. 6. Chronic kidney disease mineral bone disease. Plan: Currently seen while undergoing hemodialysis. Another treatment tomorrow per her outpatient schedule.
--- NOTE | 2025-02-05 09:32 | P.PN ---
Subjective HISTORY OF PRESENT ILLNESS: This is a 35-year-old male who follows in the office with Dr. Avila. Patient examined this morning at the bedside. Patient currently denies any chest pain or pressure. She does report some shortness of breath with activity. Blood pressure this morning 119/72. PHYSICAL EXAM: VITAL SIGNS: Reviewed. GENERAL: Well-developed in no acute distress. NECK: Supple. No JVD or thyromegaly LUNGS: Respirations even and unlabored. Lungs essentially clear to auscultation bilaterally. HEART: Regular rate and rhythm. S1 and S2 heard. EXTREMITIES: Normal range of motion. No clubbing or cyanosis. Peripheral pulses intact. No lower extremity edema ASSESSMENT: Acute on chronic heart failure with preserved EF Uncontrolled hypertension, improved End-stage renal disease on hemodialysis Type 1 diabetes Chronic anemia History of seizures PLAN: Continue hemodialysis per nephrology Continue current cardiac medications including Catapres, hydralazine, Imdur, labetalol, and Procardia Discontinue urinary catheter Increase activity as tolerated Patient is stable for discharge home today from a cardiac standpoint Patient to follow-up postdischarge with Dr. Avila Nurse practitioner note has been reviewed by physician. Signing provider agrees with the documented findings, assessment, and plan of care documented by PLUMBING AND HEATING CONTRACTOR as a scribe. Objective - Vital Signs Vital signs: Vital Signs Temp 97.5 F L 02/05/25 07:00 Pulse 75 02/05/25 07:00 Resp 16 02/05/25 07:00 BP 119/72 02/05/25 07:00 Pulse Ox 100 02/05/25 07:00 FiO2 Intake & Output 02/04/25 02/05/25 02/05/25 18:59 06:59 18:59 Output Total 0 55 Balance 0 -55 Weight 61.689 kg 71.7 kg Output: Urine 0 55 - Labs CBC & Chem 7: 02/04/25 05:46 02/04/25 05:46 Labs: Abnormal Lab Results - Last 24 Hours (Table) 02/04/25 02/04/25 02/04/25 Range/Units 11:53 17:12 20:42 POC Glucose (mg/dL) 454 H 220 H 209 H (70-110) mg/dL 02/05/25 Range/Units 05:53 POC Glucose (mg/dL) 231 H (70-110) mg/dL
[2025-02-05 12:13] LABS: Glucose,Whole Blood 198 mg/dL (70-110)
[2025-02-05 13:47] VITALS: BMI 24.0
[2025-02-05 17:16] LABS: Glucose,Whole Blood 234 mg/dL (70-110)
[2025-02-05 21:58] LABS: Glucose,Whole Blood 208 mg/dL (70-110)
--- NOTE | 2025-02-05 23:34 | P.PN ---
Subjective Progress Note Date: 02/05/25 Principal diagnosis: HTN urgency Ms. Perrin is a 35-year-old female with insulin-dependent desmitis, heart failure preserved ejection fraction, ESRD on hemodialysis, hypothyroidism coming in with shortness of breath. Patient was to be in fluid overload and admitted for further management. Today the patient is sitting up in the bed and having her support. She is a little tearful as she was having some headache that has been bothering her. Patient denies having any blurring of vision or chest pain or difficulty breathing. Patient's vital signs are reviewed and within normal limits Patient's labs reviewed last set of labs was from 323 with hyponatremia sodium of 127. Objective - Vital Signs Vital signs: Vital Signs Temp 98.3 F 02/05/25 20:00 Pulse 84 02/05/25 20:00 Resp 17 02/05/25 20:00 BP 129/75 02/05/25 20:00 Pulse Ox 99 02/05/25 20:00 FiO2 Intake & Output 02/05/25 02/05/25 02/06/25 06:59 18:59 06:59 Intake Total 957 Output Total 55 9600 Balance -55 -8643 Weight 71.7 kg 71.7 kg Intake: Oral 457 Hemodialysis 500 Output: Urine 55 100 Hemodialysis 5000 Hemodialysis Net Amount 4500 Other: # Voids 1 - Exam General Impression: Alert and oriented x3, not in acute distress HEENT: pupils equal and reactive to light bilaterally, mucous membranes moist. Cardiovascular: Heart regular rate and rhythm Lungs - Bilateral Breath sounds normal Abdomen: abdomen soft, non-tender, non-distended, no organomegaly Neurological: no focal motor or sensory deficits noted Psych: Tearful - Labs CBC & Chem 7: 02/04/25 05:46 02/04/25 05:46 Labs: Abnormal Lab Results - Last 24 Hours (Table) 02/05/25 02/05/25 02/05/25 Range/Units 05:53 12:11 17:14 POC Glucose (mg/dL) 231 H 198 H 234 H (70-110) mg/dL 02/05/25 Range/Units 21:57 POC Glucose (mg/dL) 208 H (70-110) mg/dL Assessment and Plan Assessment: ASSESSMENT Hypervolemic hyponatremia Hypertensive urgency Acute pulmonary edema ESRD on hemodialysis Anemia of chronic disease Insulin-dependent diabetes mellitus poorly controlled History of seizure disorder Hypothyroidism Plan Patient has been dialyzed and showed improvement in her symptoms. She is scheduled for another round of dialysis tomorrow morning Nephrology and cardiology on board following the patient Closely following her blood sugar levels and titrating her insulin Continue with the rest of her medication regimen
[2025-02-06] MEDS: ONDANSETRON 4 MG/2 ML VIAL IVP PRN (00:54)
[2025-02-06 06:19] LABS: Glucose,Whole Blood 178 mg/dL (70-110)
--- NOTE | 2025-02-06 07:56 | P.PN ---
Subjective HISTORY OF PRESENT ILLNESS: This is a 35-year-old male who follows in the office with Dr. Avila. Patient examined this morning at the bedside. Patient currently denies any chest pain or pressure. She does report some shortness of breath with activity. Blood pressure this morning 119/72. 02/06/2025 Patient examined this morning to bedside. Patient currently denies chest pain or pressure. She denies shortness of breath. Blood pressure remained stable. Urinary catheter was discontinued yesterday and patient has been urinating witho ut difficulty. She is on room air with oxygen saturations greater than 92%. PHYSICAL EXAM: VITAL SIGNS: Reviewed. GENERAL: Well-developed in no acute distress. NECK: Supple. No JVD or thyromegaly LUNGS: Respirations even and unlabored. Lungs essentially clear to auscultation bilaterally. HEART: Regular rate and rhythm. S1 and S2 heard. EXTREMITIES: Normal range of motion. No clubbing or cyanosis. Peripheral pulses intact. No lower extremity edema ASSESSMENT: Acute on chronic heart failure with preserved EF Uncontrolled hypertension, improved End-stage renal disease on hemodialysis Type 1 diabetes Chronic anemia History of seizures PLAN: Continue hemodialysis per nephrology Continue current cardiac medications including Catapres, hydralazine, Imdur, labetalol, and Procardia Increase activity as tolerated Patient is stable for discharge home today from a cardiac standpoint Patient to follow-up postdischarge with Dr. Avila We will sign off. Please reconsult if needed. Nurse practitioner note has been reviewed by physician. Signing provider agrees with the documented findings, assessment, and plan of care documented by GANG PLANK WORKMAN as a scribe. Objective - Vital Signs Vital signs: Vital Signs Temp 98.1 F 02/06/25 02:15 Pulse 75 02/06/25 02:15 Resp 18 02/06/25 02:15 BP 143/77 02/06/25 02:15 Pulse Ox 94 L 02/06/25 02:15 FiO2 Intake & Output 02/05/25 02/06/25 02/06/25 18:59 06:59 18:59 Intake Total 957 150 Output Total 9600 Balance -8643 150 Weight 71.7 kg 69.4 kg Intake: Oral 457 150 Hemodialysis 500 Output: Urine 100 Hemodialysis 5000 Hemodialysis Net Amount 4500 Other: # Voids 1 2 - Labs CBC & Chem 7: 02/04/25 05:46 02/04/25 05:46 Labs: Abnormal Lab Results - Last 24 Hours (Table) 02/05/25 02/05/25 02/05/25 Range/Units 12:11 17:14 21:57 POC Glucose (mg/dL) 198 H 234 H 208 H (70-110) mg/dL 02/06/25 Range/Units 06:18 POC Glucose (mg/dL) 178 H (70-110) mg/dL
[2025-02-06 08:52] VITALS: PULSE 81; TEMP 97.5
--- NOTE | 2025-02-06 11:10 | P.PN ---
Subjective Patient is seen in follow-up for end-stage renal disease. No problems with dialysis yesterday. On room air. Denies chest pain or shortness of breath. Complains of congestion. Vital signs are stable. General: No acute distress. HEENT: Head exam is unremarkable. LUNGS: No audible rhonchi or wheezes. HEART: Rate and Rhythm are regular. ABDOMEN: Nontender. EXTREMITITES: No edema. Objective - Vital Signs Vital signs: Vital Signs Temp 97.5 F L 02/06/25 07:45 Pulse 81 02/06/25 07:45 Resp 17 02/06/25 07:45 BP 131/78 02/06/25 07:45 Pulse Ox 98 02/06/25 07:45 FiO2 Intake & Output 02/05/25 02/06/25 02/06/25 18:59 06:59 18:59 Intake Total 957 150 480 Output Total 9600 Balance -8643 150 480 Weight 71.7 kg 69.4 kg Intake: Oral 457 150 480 Hemodialysis 500 Output: Urine 100 Hemodialysis 5000 Hemodialysis Net Amount 4500 Other: # Voids 1 2 - Labs CBC & Chem 7: 02/04/25 05:46 02/04/25 05:46 Labs: Abnormal Lab Results - Last 24 Hours (Table) 02/05/25 02/05/25 02/05/25 Range/Units 12:11 17:14 21:57 POC Glucose (mg/dL) 198 H 234 H 208 H (70-110) mg/dL 02/06/25 Range/Units 06:18 POC Glucose (mg/dL) 178 H (70-110) mg/dL Assessment and Plan Plan: Assessment: 1. End-stage renal disease maintained on hemodialysis on Wednesday. 2. Volume overload. Improved with ultrafiltration. 3. Hypervolemic hyponatremia with component of hypertonicity from hyperglycemia. 4. Hypertension with chronic kidney disease. Controlled. 5. Diabetes mellitus. 6. Chronic kidney disease mineral bone disease. Plan: Hemodialysis today.
[2025-02-06 12:46] LABS: Glucose,Whole Blood 159 mg/dL (70-110)
[2025-02-06 14:19] VITALS: BP 163/83; RESP 16
--- NOTE | 2025-02-08 15:36 | P.DS ---
Providers Date of admission: 02/03/25 21:21 Expected date of discharge: 02/06/25 Attending physician: Silvina Junior Consults: 02/03/25 21:20 Consult Physician Routine Consulting Provider: Charlene Lim Consult Reason/Comments: CKD Do you want consulting provider notified?: Yes Primary care physician: Stated None Hospital Course: Final diagnosis Hypervolemic hyponatremia Hypertensive urgency Acute pulmonary edema ESRD on hemodialysis Anemia of chronic disease Insulin-dependent diabetes mellitus poorly controlled History of seizure disorder Hypothyroidism GI prophylaxis DVT prophylaxis Full code Discharge disposition Patient is being discharged in a stable condition with guarded prognosis to home. Patient was provided with multiple resources to establish with a primary care provider in the outpatient setting upon discharge. Patient reports she is unable to obtain a primary care provider as she always ends up here in the hospital. Patient is to continue with hemodialysis as scheduled. Recommend outpatient follow-up with cardiology as well as nephrology. Total time taken is greater than 35 minutes. Hospital course This is a [age]-year-old female who was recently admitted with hypertensive urgency with acute on chronic pulmonary edema and hypervolemic hyponatremia with massive volume overload. Patient is maintained on hemodialysis 4 times weekly and reports she has been compliant. Patient also reports to being compliant with her medication in the outpatient setting. Discussed with her why she has not established with a primary care provider and she reports every time she goes to make an appointment she ends up in the hospital for multiple days at a time. Patient is extremely noncompliant with her diet and overall medication use. Patient has had multiple hospitalizations and frequent ER visits secondary to this. Patient has been cleared by cardiology and nephrology for outpatient follow-up. Please refer to consultation notes for further HPI. Currently no reports of chest pain, shortness of breath, or palpitations. Patient is afebrile. No reports of nausea or vomiting and patient is tolerating diet. Patient will be discharged home today. As mentioned previously patient is an extremely high risk readmission due to noncompliance and continued ongoing significant comorbidities. Physical exam: Gen: This is a 35-year-old female who is awake, alert and oriented x 3, well- developed, appears older than stated age, chronically ill-appearing HEENT: Head is atraumatic, normocephalic. Pupils equal, round. Sclerae is anicteric. NECK: Supple. No JVD. No lymphadenopathy. No thyromegaly. LUNGS: Diminished breath sounds bilaterally otherwise clear to auscultation. No wheezes or rhonchi. No intercostal retractions. HEART: S1, S2 are muffled ABDOMEN: Soft. Bowel sounds are present. No masses. No tenderness. EXTREMITIES: No pedal edema. No calf tenderness. NEUROLOGICAL: Patient is awake, alert and oriented x3. Cranial nerves 2 through 12 are grossly intact. Please refer to medication reconciliation sheet for a list of medications. The impression and plan of care has been dictated by Margie Urbina, Nurse Practitioner as directed. Dr. Sandi MD I have performed a history and examination and MDM of this patient, discussed the same with the dictator, and agree with the dictator's assessment and plan as written ,documented as a scribe. Based on total visit time, I have performed more than 50% of the visit. Patient Condition at Discharge: Fair Plan - Discharge Summary Discharge Rx Participant: No New Discharge Prescriptions: New Insulin Glargine (Lantus) [Lantus Vial] 10 unit SQ BID@0700,2100 30 Days #4 each Continue Magnesium Hydroxide [Milk of Magnesia Concentrate] 7,200 mg PO DAILY PRN PRN Reason: Constipation Lidocaine 4% Patch 1 patch TOPICAL DAILY@0800 Ipratropium-Albuterol Nebulize [Duoneb 0.5 mg-3 mg/3 ml Soln] 3 ml INHALATION RT-TID PRN each PRN Reason: Shortness Of Breath Or Wheezing Biotene Dry Mouth/Throat 10 ml PO BID PRN PRN Reason: DRY MOUTH/THROAT Acetaminophen [Tylenol] 650 mg PO Q4H PRN PRN Reason: Pain Or Fever > 100.5 Darbepoetin Artur [Aranesp] 40 mcg SQ MO Loratadine [Claritin] 5 mg PO DAILY tab Sertraline [Zoloft] 200 mg PO DAILY@0800 ALPRAZolam [Xanax] 0.25 mg PO BID PRN PRN Reason: Anxiety Colchicine [Colcrys] 0.3 mg PO DAILY #15 each Ondansetron Odt [Zofran ODT] 4 mg PO Q8HR PRN PRN Reason: Nausea And Vomiting Atorvastatin [Lipitor] 40 mg PO HS #0 Folic Acid/Vit B Complex and C [Davina-Mayte Tablet] 0.8 mg PO DAILY Divalproex ER [Depakote ER] 500 mg PO BID@0800,1700 #60 tab Isosorbide Mononitrate ER [Imdur] 120 mg PO DAILY #60 tab NIFEdipine XL [Procardia XL] 60 mg PO BID 30 Days #60 tab Gabapentin [Neurontin] 100 mg PO BID 30 Days #60 cap Linagliptin [Tradjenta] 5 mg PO DAILY #30 tab cloNIDine HCL [Catapres] 0.3 mg PO TID Insulin Lispro [humaLOG Kwikpen] See Protocol SQ AC-TID Butalb/APAP/Caff 50-325-40Mg [Fioricet 50-325-40] 1 tab PO Q4HR PRN #12 tab PRN Reason: Headache Docusate [Colace] 100 mg PO DAILY@0800 polyethylene glycoL 3350 [Miralax] 17 gm PO AC-LUNCH #527 gm Melatonin 1 mg PO HS tab Aspirin 81 mg PO DAILY@0800 #30 tab Famotidine [Pepcid] 20 mg PO BID #60 tab Levothyroxine Sodium [Synthroid] 175 mcg PO DAILY@0600 Metoclopramide [Reglan] 5 mg PO AC-TID PRN PRN Reason: Nausea Pantoprazole [Protonix] 40 mg PO DAILY@0600 Calcium Acetate [PhosLo] 667 mg PO DAILY PRN PRN Reason: W/SNACK oxyCODONE-APAP 10-325MG [Percocet 10-325 mg] 1 tab PO Q4HR PRN #18 tab PRN Reason: Pain SCALE 6-10 hydrALAZINE HCL [Apresoline] 100 mg PO TID 30 Days #90 tab traZODone HCL [Desyrel] 50 mg PO HS #20 tab Labetalol [Trandate] 500 mg PO BID 30 Days #150 tab Insulin Lispro [humaLOG Kwikpen] 8 unit SQ AC-TID Discharge Medication List Docusate [Colace] 100 mg PO DAILY@0800 02/05/24 [History] Lidocaine 4% Patch 1 patch TOPICAL DAILY@0800 02/05/24 [History] Magnesium Hydroxide [Milk of Magnesia Concentrate] 7,200 mg PO DAILY PRN 02/05/24 [History] Ipratropium-Albuterol Nebulize [Duoneb 0.5 mg-3 mg/3 ml Soln] 3 ml INHALATION RT-TID PRN each 02/14/24 [Rx] polyethylene glycoL 3350 [Miralax] 17 gm PO AC-LUNCH #527 gm 02/14/24 [Rx] Acetaminophen [Tylenol] 650 mg PO Q4H PRN 02/18/24 [History] Biotene Dry Mouth/Throat 10 ml PO BID PRN 02/18/24 [History] Melatonin 1 mg PO HS tab 02/25/24 [Rx] Darbepoetin Artur [Aranesp] 40 mcg SQ MO 03/14/24 [History] Loratadine [Claritin] 5 mg PO DAILY tab 03/30/24 [Rx] Aspirin 81 mg PO DAILY@0800 #30 tab 05/18/24 [Rx] Famotidine [Pepcid] 20 mg PO BID #60 tab 07/11/24 [Rx] Levothyroxine Sodium [Synthroid] 175 mcg PO DAILY@0600 08/14/24 [History] Metoclopramide [Reglan] 5 mg PO AC-TID PRN 08/14/24 [History] Pantoprazole [Protonix] 40 mg PO DAILY@0600 08/14/24 [History] Sertraline [Zoloft] 200 mg PO DAILY@0800 08/14/24 [History] ALPRAZolam [Xanax] 0.25 mg PO BID PRN 09/04/24 [History] Calcium Acetate [PhosLo] 667 mg PO DAILY PRN 09/04/24 [History] Colchicine [Colcrys] 0.3 mg PO DAILY #15 each 09/23/24 [Rx] Ondansetron Odt [Zofran ODT] 4 mg PO Q8HR PRN 11/02/24 [History] Atorvastatin [Lipitor] 40 mg PO HS #0 11/23/24 [Rx] oxyCODONE-APAP 10-325MG [Percocet 10-325 mg] 1 tab PO Q4HR PRN #18 tab 11/23/24 [Rx] Folic Acid/Vit B Complex and C [Davina-Mayte Tablet] 0.8 mg PO DAILY 12/20/24 [History] hydrALAZINE HCL [Apresoline] 100 mg PO TID 30 Days #90 tab 01/01/25 [Rx] traZODone HCL [Desyrel] 50 mg PO HS #20 tab 01/01/25 [Rx] Divalproex ER [Depakote ER] 500 mg PO BID@0800,1700 #60 tab 01/02/25 [Rx] Isosorbide Mononitrate ER [Imdur] 120 mg PO DAILY #60 tab 01/02/25 [Rx] Labetalol [Trandate] 500 mg PO BID 30 Days #150 tab 01/02/25 [Rx] NIFEdipine XL [Procardia XL] 60 mg PO BID 30 Days #60 tab 01/02/25 [Rx] Gabapentin [Neurontin] 100 mg PO BID 30 Days #60 cap 01/03/25 [Rx] Linagliptin [Tradjenta] 5 mg PO DAILY #30 tab 01/03/25 [Rx] Insulin Lispro [humaLOG Kwikpen] 8 unit SQ AC-TID 01/22/25 [History] Insulin Lispro [humaLOG Kwikpen] See Protocol SQ AC-TID 01/22/25 [History] cloNIDine HCL [Catapres] 0.3 mg PO TID 01/22/25 [History] Butalb/APAP/Caff 50-325-40Mg [Fioricet 50-325-40] 1 tab PO Q4HR PRN #12 tab 01/26/25 [Rx] Insulin Glargine (Lantus) [Lantus Vial] 10 unit SQ BID@0700,2100 30 Days #4 each 02/06/25 [Rx] Follow up Appointment(s)/Referral(s): None,Stated [Primary Care Provider] - 1-2 days Activity/Diet/Wound Care/Special Instructions: Activity limited until follow-up Follow-up with primary care provider on discharge Follow-up cardiology outpatient Follow-up with nephrology outpatient Continue with hemodialysis schedule Continue taking medications as prescribed Discharge Disposition: HOME SELF-CARE
== END 2025-02-06 15:25 | disposition home or self-care (01) ==
LOC: EC 18:56 → 6NMEDSUR 21:21
PROVIDERS: ADMIT Internal Medicine; ATTEND Internal Medicine
DX: I16.1 Hypertensive emergency (principal); I13.2 Hypertensive heart and chronic kidney disease with heart failure and with stage 5 chronic kidney disease, or end stage renal disease; N18.6 End stage renal disease; I50.33 Acute on chronic diastolic (congestive) heart failure; E10.22 Type 1 diabetes mellitus with diabetic chronic kidney disease; D63.8 Anemia in other chronic diseases classified elsewhere; E87.1 Hypo-osmolality and hyponatremia; E10.65 Type 1 diabetes mellitus with hyperglycemia; Z99.2 Dependence on renal dialysis; M89.8X9 Other specified disorders of bone, unspecified site; E03.9 Hypothyroidism, unspecified; K21.9 Gastro-esophageal reflux disease without esophagitis; D72.829 Elevated white blood cell count, unspecified; G40.909 Epilepsy, unspecified, not intractable, without status epilepticus; F41.9 Anxiety disorder, unspecified; F17.210 Nicotine dependence, cigarettes, uncomplicated; Z79.890 Hormone replacement therapy; Z79.82 Long term (current) use of aspirin; Z79.84 Long term (current) use of oral hypoglycemic drugs; Z79.4 Long term (current) use of insulin; Z79.899 Other long term (current) drug therapy; Z88.5 Allergy status to narcotic agent; Z88.6 Allergy status to analgesic agent; Z91.030 Bee allergy status; Z91.119 Patient's noncompliance with dietary regimen due to unspecified reason
CPT/HCPCS: 96375; 96374; 99291; 36415; 94640; 93005; 83880; 80053 ×2; 83735 ×2; 84100; 84484; 85025 ×2; 85610; 85730; 71045; G0257 ×2; G0378 ×4; J1940; J2405; 90935

== ENCOUNTER 2025-02-12 11:59 | Inpatient (IN) | payer MEDICARE ==
--- NOTE | 2025-02-12 12:22 | ED ---
General Adult HPI - General Chief complaint: Shortness of Breath Stated complaint: WAQAR Time Seen by Provider: 02/12/25 12:05 Source: patient, EMS, RN notes reviewed Mode of arrival: EMS Limitations: no limitations - History of Present Illness Initial comments: 35-year-old female presents emergency department with concerns for difficulty breathing. Onset of symptoms was around 4 this morning. Patient has increased edema as well. Patient is scheduled for dialysis later today. No fever or cough. Dyspnea is similar to previous fluid buildup. - Related Data Home Medications Medication Instructions Recorded Confirmed Docusate [Colace] 100 mg PO DAILY@79902/05/24 02/04/25 Lidocaine 4% Patch 1 patch TOPICAL DAILY@79902/05/24 02/04/25 Magnesium Hydroxide [Milk of 7,200 mg PO DAILY PRN 02/05/24 02/04/25 Magnesia Concentrate] Acetaminophen [Tylenol] 650 mg PO Q4H PRN 02/18/24 02/04/25 Biotene Dry Mouth/Throat 10 ml PO BID PRN 02/18/24 02/04/25 Darbepoetin Artur [Aranesp] 40 mcg SQ MO 03/14/24 02/04/25 Levothyroxine Sodium [Synthroid] 175 mcg PO DAILY@59908/14/24 02/04/25 Metoclopramide [Reglan] 5 mg PO AC-TID PRN 08/14/24 02/04/25 Pantoprazole [Protonix] 40 mg PO DAILY@59908/14/24 02/04/25 Sertraline [Zoloft] 200 mg PO DAILY@79908/14/24 02/04/25 ALPRAZolam [Xanax] 0.25 mg PO BID PRN 09/04/24 02/04/25 Calcium Acetate [PhosLo] 667 mg PO DAILY PRN 09/04/24 02/04/25 Ondansetron Odt [Zofran ODT] 4 mg PO Q8HR PRN 11/02/24 02/04/25 Folic Acid/Vit B Complex and C 0.8 mg PO DAILY 12/20/24 02/04/25 [Davina-Mayte Tablet] Insulin Lispro [humaLOG Kwikpen] 8 unit SQ AC-TID 01/22/25 02/04/25 Insulin Lispro [humaLOG Kwikpen] See Protocol SQ AC-TID 01/22/25 02/04/25 cloNIDine HCL [Catapres] 0.3 mg PO TID 01/22/25 02/04/25 Previous Rx's Medication Instructions Recorded Ipratropium-Albuterol Nebulize 3 ml INHALATION RT-TID PRN each 02/14/24 [Duoneb 0.5 mg-3 mg/3 ml Soln] polyethylene glycoL 3350 [Miralax] 17 gm PO AC-LUNCH #527 gm 02/14/24 Melatonin 1 mg PO HS tab 02/25/24 Loratadine [Claritin] 5 mg PO DAILY tab 03/30/24 Aspirin 81 mg PO DAILY@0800 #30 tab 05/18/24 Famotidine [Pepcid] 20 mg PO BID #60 tab 07/11/24 Colchicine [Colcrys] 0.3 mg PO DAILY #15 each 09/23/24 Atorvastatin [Lipitor] 40 mg PO HS #0 11/23/24 oxyCODONE-APAP 10-325MG [Percocet 1 tab PO Q4HR PRN #18 tab 11/23/24 10-325 mg] hydrALAZINE HCL [Apresoline] 100 mg PO TID 30 Days #90 tab 01/01/25 traZODone HCL [Desyrel] 50 mg PO HS #20 tab 01/01/25 Divalproex ER [Depakote ER] 500 mg PO BID@0800,1700 #60 tab 01/02/25 Isosorbide Mononitrate ER [Imdur] 120 mg PO DAILY #60 tab 01/02/25 Labetalol [Trandate] 500 mg PO BID 30 Days #150 tab 01/02/25 NIFEdipine XL [Procardia XL] 60 mg PO BID 30 Days #60 tab 01/02/25 Gabapentin [Neurontin] 100 mg PO BID 30 Days #60 cap 01/03/25 Linagliptin [Tradjenta] 5 mg PO DAILY #30 tab 01/03/25 Butalb/APAP/Caff 50-325-40Mg 1 tab PO Q4HR PRN #12 tab 01/26/25 [Fioricet 50-325-40] Insulin Glargine (Lantus) [Lantus 10 unit SQ BID@0700,2100 30 Days 02/06/25 Vial] #4 each Allergies Allergy/AdvReac Type Severity Reaction Status Date / Time hydromorphone HCl Allergy Anaphylaxis Verified 02/12/25 12:06 [From Dilaudid] propoxyphene Allergy Rash/Hives Verified 02/12/25 12:06 [From Darvocet-N] tramadol Allergy Anaphylaxis Verified 02/12/25 12:06 ibuprofen [From Motrin] AdvReac unable to Verified 02/12/25 12:06 take due to kidney disease venom-honey bee AdvReac passes out Verified 02/12/25 12:06 [bee venom (honey bee)] Review of Systems ROS Statement: Those systems with pertinent positive or pertinent negative responses have been documented in the HPI. ROS Other: All systems not noted in ROS Statement are negative. Constitutional: Denies: fever, chills Eyes: Denies: eye pain ENT: Denies: ear pain Respiratory: Reports: dyspnea Cardiovascular: Reports: edema. 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 Past Anesthesia/Blood Transfusion Reactions: Previous Problems w/ Anesthesia Additional Past Anesthesia/Blood Transfusion Reaction / Comment(s): confusion Past Psychological History: Anxiety, Depression Smoking Status: Current every day smoker Past Alcohol Use History: None Reported Past Drug Use History: Marijuana - Past Family History Father History Unknown: Yes Family Medical History: Unable to Obtain Mother History Unknown: Yes Family Medical History: No Reported History Grandfather History Unknown: Yes Family Medical History: Coronary Artery Disease (CAD) Additional Family Medical History / Comment(s): Diabetes mellitus type 2 General Exam Limitations: no limitations General appearance: alert, in no apparent distress Head exam: Present: normocephalic Eye exam: Present: normal appearance Neck exam: Present: normal inspection Respiratory exam: Present: normal lung sounds bilaterally Cardiovascular Exam: Present: regular rate, normal rhythm GI/Abdominal exam: Present: soft. Absent: tenderness Extremities exam: Present: pedal edema Neurological exam: Present: alert Psychiatric exam: Present: normal affect, normal mood Skin exam: Present: normal color Course Vital Signs 02/12/25 02/12/25 02/12/25 12:03 13:18 13:28 Temperature 98 F Pulse Rate 82 88 86 Respiratory 20 Rate Blood Pressure 151/94 O2 Sat by Pulse 96 Oximetry EKG Findings - EKG Results: EKG: interpreted by ERMD, sinus rhythm, normal axis, normal QRS, normal ST/T Medical Decision Making - Medical Decision Making Was pt. sent in by a medical professional or institution (, PA, SEALING AND CANCELING MACHINE OPERATOR, urgent care, hospital, or longterm...) When possible be specific @ -No Did you speak to anyone other than the patient for history (EMS, parent, family, police, friend...)? What history was obtained from this source @ -No Did you review nursing and triage notes (agree or disagree)? Why? @ -I reviewed and agree with nursing and triage notes Were old charts reviewed (outside hosp., previous admission, EMS record, old EKG, old radiological studies, urgent care reports/EKG's, longterm records)? Report findings @ -Previous admission reviewed including chest x-ray results. Chest x-ray today does look worse than previous. Differential Diagnosis (chest pain, altered mental status, abdominal pain women, abdominal pain men, vaginal bleeding, weakness, fever, dyspnea, syncope, headache, dizziness, GI bleed, back pain, seizure, CVA, palpatations, mental health, musculoskeletal)? @ -Differential Dyspnea: Coronary syndrome, arrhythmia, tamponade, asthma, COPD, pulmonary embolism, pneumonia, pneumothorax, pulmonary effusion, anaphylaxis, diabetic ketoacidosis, flailed chest, pulmonary contusion, diaphragmatic rupture, anemia, neuro muscular, this is not meant to be an all-inclusive list. EKG interpreted by me (3pts min.). @ -As above X-rays interpreted by me (1pt min.). @ -Chest x-ray shows pulmonary edema CT interpreted by me (1pt min.). @ -None done U/S interpreted by me (1pt. min.). @ -None done What testing was considered but not performed or refused? (CT, X-rays, U/S, labs)? Why? @ -Procalcitonin to be added What meds were considered but not given or refused? Why? @ -None Did you discuss the management of the patient with other professionals (professionals i.e. , PA, SEALING AND CANCELING MACHINE OPERATOR, lab, RT, psych nurse, social work case manager, eyelet operator, teacher, examining officer, director of casework services)? Give summary @ -Case was discussed with Dr. Glasgow who will admit patient recently admitted to their service. Was smoking cessation discussed for >3mins.? @ -No Was critical care preformed (if so, how long)? @ -No Were there social determinants of health that impacted care today? How? (Homelessness, low income, unemployed, alcoholism, drug addiction, transportation, low edu. Level, literacy, decrease access to med. care, group home, rehab)? @ -No Was there de-escalation of care discussed even if they declined (Discuss DNR or withdrawal of care, Hospice)? DNR status @ -No What co-morbidities impacted this encounter? (DM, HTN, Smoking, COPD, CAD, Cancer, CVA, ARF, Chemo, Hep., AIDS, mental health diagnosis, sleep apnea, morbid obesity)? @ -End-stage renal failure on hemodialysis Was patient admitted / discharged? Hospital course, mention meds given and route, prescriptions, significant lab abnormalities, going to OR and other pertinent info. @ -Patient presents with concern for fluid overload with similar symptoms previously. X-ray concerning for pulmonary edema. Patient will be admitted with dialysis and will need further evaluation following this. Patient reevaluated and updated. Undiagnosed new problem with uncertain prognosis? @ -No Drug Therapy requiring intensive monitoring for toxicity (Heparin, Nitro, Insulin, Cardizem)? @ -No Were any procedures done? @ -No Diagnosis/symptom? @ -Pulmonary edema Acute, or Chronic, or Acute on Chronic? @ -Acute Uncomplicated (without systemic symptoms) or Complicated (systemic symptoms)? @ -Default Side effects of treatment? @ -No Exacerbation, Progression, or Severe Exacerbation? @ -No Poses a threat to life or bodily function? How? (Chest pain, USA, NV, pneumonia, PE, COPD, DKA, ARF, appy, cholecystitis, CVA, Diverticulitis, Homicidal, Suicidal, threat to staff... and all critical care pts) @ -No - Lab Data Result diagrams: 02/12/25 12:49 02/12/25 12:49 Lab Results 02/12/25 02/12/25 02/12/25 Range/Units 12:49 12:49 12:49 WBC 12.0 H (3.8-10.6) k/uL RBC 3.04 L (3.80-5.40) m/uL Hgb 10.0 L (11.4-16.0) gm/dL Hct 30.6 L (34.0-46.0) % MCV 100.4 H (80.0-100.0) fL MCH 32.8 (25.0-35.0) pg MCHC 32.7 (31.0-37.0) g/dL RDW 17.0 H (11.5-15.5) % Plt Count 292 (150-450) k/uL MPV 8.0 Neutrophils % 87 % Lymphocytes % 6 % Monocytes % 3 % Eosinophils % 4 % Basophils % 0 % Neutrophils # 10.5 H (1.3-7.7) k/uL Lymphocytes # 0.7 L (1.0-4.8) k/uL Monocytes # 0.3 (0-1.0) k/uL Eosinophils # 0.4 (0-0.7) k/uL Basophils # 0.1 (0-0.2) k/uL Hypochromasia Slight Anisocytosis Slight Macrocytosis Slight PT 11.9 (10.0-12.5) sec INR 1.1 (<1.2) APTT 24.2 (22.0-30.0) sec Sodium 127 L (137-145) mmol/L Potassium 5.4 H (3.5-5.1) mmol/L Chloride 89 L (98-107) mmol/L Carbon Dioxide 23 (22-30) mmol/L Anion Gap 15 mmol/L BUN 67 H (7-17) mg/dL Creatinine 5.61 H (0.52-1.04) mg/dL Est GFR (CKD-EPI)AfAm 11 (>60 ml/min/1.73 sqM) Est GFR (CKD-EPI)NonAf 9 (>60 ml/min/1.73 sqM) Glucose 284 H (74-99) mg/dL Plasma Lactic Acid Christopher (0.7-2.0) mmol/L Calcium 9.4 (8.4-10.2) mg/dL Magnesium 1.7 (1.6-2.3) mg/dL Total Bilirubin 1.1 (0.2-1.3) mg/dL AST 128 H (14-36) U/L ALT 151 H (4-34) U/L Alkaline Phosphatase 185 H (38-126) U/L Troponin I (0.000-0.034) ng/mL NT-Pro-B Natriuret Pep 36785 pg/mL Total Protein 6.8 (6.3-8.2) g/dL Albumin 4.3 (3.5-5.0) g/dL Valproic Acid <10.0 ug/mL Influenza Type A (PCR) (Not Detectd) Influenza Type B (PCR) (Not Detectd) RSV (PCR) (Not Detectd) SARS-CoV-2 (PCR) (Not Detectd) 02/12/25 02/12/25 02/12/25 Range/Units 12:49 12:49 12:49 WBC (3.8-10.6) k/uL RBC (3.80-5.40) m/uL Hgb (11.4-16.0) gm/dL Hct (34.0-46.0) % MCV (80.0-100.0) fL MCH (25.0-35.0) pg MCHC (31.0-37.0) g/dL RDW (11.5-15.5) % Plt Count (150-450) k/uL MPV Neutrophils % % Lymphocytes % % Monocytes % % Eosinophils % % Basophils % % Neutrophils # (1.3-7.7) k/uL Lymphocytes # (1.0-4.8) k/uL Monocytes # (0-1.0) k/uL Eosinophils # (0-0.7) k/uL Basophils # (0-0.2) k/uL Hypochromasia Anisocytosis Macrocytosis PT (10.0-12.5) sec INR (<1.2) APTT (22.0-30.0) sec Sodium (137-145) mmol/L Potassium (3.5-5.1) mmol/L Chloride (98-107) mmol/L Carbon Dioxide (22-30) mmol/L Anion Gap mmol/L BUN (7-17) mg/dL Creatinine (0.52-1.04) mg/dL Est GFR (CKD-EPI)AfAm (>60 ml/min/1.73 sqM) Est GFR (CKD-EPI)NonAf (>60 ml/min/1.73 sqM) Glucose (74-99) mg/dL Plasma Lactic Acid Christopher 1.5 (0.7-2.0) mmol/L Calcium (8.4-10.2) mg/dL Magnesium (1.6-2.3) mg/dL Total Bilirubin (0.2-1.3) mg/dL AST (14-36) U/L ALT (4-34) U/L Alkaline Phosphatase (38-126) U/L Troponin I 0.015 (0.000-0.034) ng/mL NT-Pro-B Natriuret Pep pg/mL Total Protein (6.3-8.2) g/dL Albumin (3.5-5.0) g/dL Valproic Acid ug/mL Influenza Type A (PCR) Not Detected (Not Detectd) Influenza Type B (PCR) Not Detected (Not Detectd) RSV (PCR) Not Detected (Not Detectd) SARS-CoV-2 (PCR) Not Detected (Not Detectd) Disposition Clinical Impression: Pulmonary edema Disposition: ADMITTED IP TO THIS HOSP Condition: Serious Is patient prescribed a controlled substance at d/c from ED?: No Referrals: [facility] [NON-STAFF] - 02/23/25 10:00 am (Please bring insurance and ID cards. You will have new patient paperwork to complete. ) Time of Disposition: 14:52
[2025-02-12 13:09] LABS: Anisocytosis Slight; Basophils # (A) 0.1 k/uL (0-0.2); Basophils % (A) 0 %; Eosinophils # (A) 0.4 k/uL (0-0.7); Eosinophils % (A) 4 %; HCT 30.6 % (34.0-46.0); Hypochromasia Slight; Lymphocytes # (A) 0.7 k/uL (1.0-4.8); Lymphocytes % (A) 6 %; MCH 32.8 pg (25.0-35.0); MCHC 32.7 g/dL (31.0-37.0); MCV 100.4 fL (80.0-100.0); Macrocytosis Slight; Monocytes # (A) 0.3 k/uL (0-1.0); Monocytes % (A) 3 %; Neutrophils # (A) 10.5 k/uL (1.3-7.7); Neutrophils % (A) 87 %; Platelet Count 292 k/uL (150-450); RBC 3.04 m/uL (3.80-5.40)
[2025-02-12] MEDS: IPRATROPIUM-ALBUTEROL 3 ML NEB INHALATION STA (13:18)
[2025-02-12 13:20] LABS: ALT 151 U/L (4-34); AST 128 U/L (14-36); African American GFR (CKD) 11 (>60 ml/min/1.73 sqM); Albumin 4.3 g/dL (3.5-5.0); Alkaline Phosphatase 185 U/L (38-126); Anion Gap 15 mmol/L; Blood Urea Nitrogen 67 mg/dL (7-17); Calcium 9.4 mg/dL (8.4-10.2); Carbon Dioxide 23 mmol/L (22-30); Chloride 89 mmol/L (98-107); Glucose 284 mg/dL (74-99); Magnesium 1.7 mg/dL (1.6-2.3); Non-African American GFR(CKD) 9 (>60 ml/min/1.73 sqM); Potassium 5.4 mmol/L (3.5-5.1); Sodium 127 mmol/L (137-145); Total Bilirubin 1.1 mg/dL (0.2-1.3); Total Protein 6.8 g/dL (6.3-8.2)
[2025-02-12 13:22] LABS: INR 1.1 (<1.2); Partial Thromboplastin Time 24.2 sec (22.0-30.0); Prothrombin Time 11.9 sec (10.0-12.5)
[2025-02-12 13:25] LABS: Valproic Acid (Depakene) <10.0 ug/mL
--- NOTE | 2025-02-12 13:34 | XR ---
EXAMINATION TYPE: XR chest 2V DATE OF EXAM: 02/12/2025 1:08 PM COMPARISON: Chest radiographs from 02/03/2025. CLINICAL INDICATION: Female, 35 years old with history of difficulty breathing; [facility] TECHNIQUE: XR chest 2V Frontal and lateral views of the chest. FINDINGS: Lungs/Pleura: Multifocal airspace opacities. No evidence of pneumothorax or pleural effusion. Pulmonary vascularity: Pulmonary vascular congestion. Heart/mediastinum: Cardiomediastinal silhouette is unremarkable. Musculoskeletal: No acute osseous pathology. Other findings: None Lines/Tubes: IMPRESSION: Worsening Multifocal airspace opacities concerning for pneumonia first pulmonary edema. [facility], , 02/12/2025 1:32 PM
[2025-02-12 13:40] LABS: Influenza A Not Detected (Not Detectd); Influenza B Not Detected (Not Detectd); RSV Not Detected (Not Detectd)
[2025-02-12 14:08] LABS: NT-Pro-B-Type Natriuretic Pept 84100 pg/mL
[2025-02-12] MEDS ORDERED: NALOXONE 0.4 MG/ML 1 ML VIAL IV PRN (14:53)
[2025-02-12] MEDS ORDERED: METOCLOPRAMIDE 5 MG TAB PO PRN (15:22)
[2025-02-12] MEDS ORDERED: BIOTENE DRY MOUTH PO PRN (15:22)
[2025-02-12] MEDS ORDERED: CALCIUM ACETATE 667 MG TAB PO PRN (15:22)
[2025-02-12] MEDS ORDERED: MAGNESIUM HYDROXIDE 2,400 MG/30 ML CUP PO PRN (15:22)
[2025-02-12] MEDS ORDERED: THROAT PO PRN (15:22)
[2025-02-12] MEDS ORDERED: ACETAMINOPHEN TAB 325 MG TAB PO PRN (15:22)
[2025-02-12] MEDS ORDERED: DEXTROSE 50% SYRINGE 50 ML IVP PRN ×2 (16:08)
[2025-02-12 16:45] LABS: Glucose,Whole Blood 341 mg/dL (70-110)
[2025-02-12] MEDS: oxyCODONE-APAP 10-325MG 1 EACH TAB PO PRN (16:55)
[2025-02-12] MEDS: cloNIDine HCL 0.1 MG TAB PO SCH (16:56)
[2025-02-12] MEDS: hydrALAZINE HCL 50 MG TAB PO SCH (16:57)
[2025-02-12] MEDS: DIVALPROEX ER 500 MG TAB.ER.24H PO SCH (16:58)
[2025-02-12] MEDS: DARBEPOETIN ALFA 40 MCG/0.4 ML SYRINGE SQ SCH (16:59)
[2025-02-12] MEDS: INSULIN LISPRO (HumaLOG) 100 UNIT/ML 10 mL VL SQ SCH ×2 (17:14)
[2025-02-12] MEDS: IPRATROPIUM-ALBUTEROL 3 ML NEB INHALATION SCH (18:53)
[2025-02-12 20:13] LABS: Glucose,Whole Blood 299 mg/dL (70-110)
[2025-02-12] MEDS: INSULIN GLARGINE (LANTUS) 100 UNIT/ML SYR SQ SCH (20:51)
[2025-02-12] MEDS: LABETALOL 200 MG TAB PO SCH (22:29)
[2025-02-12] MEDS: MELATONIN 1 MG TAB PO SCH (22:29)
[2025-02-12] MEDS: ATORVASTATIN 40 MG TAB PO SCH (22:29)
[2025-02-12] MEDS: FAMOTIDINE 20 MG TAB PO SCH (22:29)
[2025-02-12] MEDS: GABAPENTIN 100 MG CAP PO SCH (22:35)
[2025-02-12] MEDS: traZODone HCL 50 MG TAB PO SCH (22:35)
--- NOTE | 2025-02-12 23:16 | HP ---
HISTORY AND PHYSICAL CHIEF COMPLAINT: Shortness of breath. HISTORY OF PRESENT ILLNESS: This is a 35-year-old woman with a past medical history of multiple medical problems including end-stage renal disease, on hemodialysis, who presented with increasing shortness of breath this morning. The patient has some cough and chronic sputum also. The patient came to [facility] and found to have fluid overload and pulmonary edema. The patient is being admitted for further evaluation and treatment. There is no history of any fever, rigors, or chills at this time. PAST MEDICAL HISTORY: Reviewed and includes diabetes mellitus and hypertension. Rest of history and rest of the chart is also reviewed. HOME MEDICATIONS: Reviewed and includes trazodone. Dose and rest of medications reviewed. ALLERGIES: Dilaudid. FAMILY HISTORY: Diabetes mellitus type 2. SOCIAL HISTORY: History of smoking. REVIEW OF SYSTEMS: Fourteen-point review of systems negative except as mentioned earlier. PHYSICAL EXAMINATION: VITAL SIGNS: Pulse 82, blood pressure 150/90, respirations 20. HEENT: Conjunctivae normal. NECK: No JVD. CARDIOVASCULAR: S1, S2. RESPIRATIONS: Breath sounds diminished at the bases. A few scattered rhonchi and crackles. ABDOMEN: Soft and nontender. LEGS: Bilateral leg edema. NERVOUS SYSTEM: Nonfocal. SKIN: No ulcer, rash, bleeding. LABORATORY DATA: Sodium 127, potassium 5.4. WBC 12. ASSESSMENT: 1. Acute bilateral pulmonary edema, secondary to renal failure. 2. Ribqh-uc-kaepfhsk pericardial effusion in 2D echo done last month. 3. End-stage renal disease, on hemodialysis. 4. Rule out congestive heart failure. 5. Diabetes mellitus type 2. 6. Hypertension. 7. History of seizure. 8. Acute purulent tracheobronchitis. RECOMMENDATIONS AND DISCUSSION: This is a 35-year-old woman, who presented with multiple complex medical issues. We will monitor the patient closely. I would recommend urgent hemodialysis bronchodilators. I would also recommend empiric antibiotics and viral testing. I would also recommend repeat 2D echo with Doppler for the pericardial effusion. NT- proBNP is elevated up to 84,100. I would also recommend Cardiology consultation also. Prognosis is guarded. Further recommendations to follow. MMODL / IJN: [id number] /
[2025-02-13 06:23] LABS: Glucose,Whole Blood 264 mg/dL (70-110)
[2025-02-13] MEDS: LEVOTHYROXINE 88 MCG TAB PO SCH (06:54)
[2025-02-13] MEDS: PANTOPRAZOLE 40 MG TABLET PO SCH (06:54)
[2025-02-13] MEDS: SERTRALINE 100 MG TAB PO SCH (07:50)
[2025-02-13] MEDS: LINAGLIPTIN 5 MG TABLET PO SCH (07:50)
[2025-02-13] MEDS: LORATADINE 10 MG TAB PO SCH (07:51)
[2025-02-13] MEDS: DOCUSATE 100 MG CAP PO SCH (07:51)
[2025-02-13] MEDS: ISOSORBIDE MONONITRATE ER 60 MG TAB.ER.24H PO SCH (07:51)
[2025-02-13] MEDS: ASPIRIN 81 MG PO SCH (07:51)
[2025-02-13] MEDS: COLCHICINE 0.6 MG EACH PO SCH (07:52)
[2025-02-13] MEDS: FOLIC ACID-VIT B COMPLEX-VIT C 1 CAP PO SCH (07:56)
--- NOTE | 2025-02-13 08:13 | XR ---
EXAMINATION TYPE: XR chest 1V portable DATE OF EXAM: 02/13/2025 7:02 AM COMPARISON: Chest radiographs from 02/12/2025. CLINICAL INDICATION: Female, 35 years old with history of edema; [facility] TECHNIQUE: XR chest 1V portable Frontal view of the chest. FINDINGS: Lungs/Pleura: Multifocal airspace opacities. No evidence of pneumothorax or pleural effusion. Pulmonary vascularity: Unremarkable. Heart/mediastinum: Cardiomediastinal silhouette is unremarkable. Musculoskeletal: No acute osseous pathology. IMPRESSION: Similar Pulmonary vascular congestion versus atypical pneumonia [facility], , 02/13/2025 8:10 AM
[2025-02-13 08:28] LABS: Basophils % (A) 1.2 %; Eosinophils # (A) 0.43 X 10*3/uL (0.04-0.35); Eosinophils % (A) 5.1 %; HCT 27.6 % (37.2-46.3); HGB 8.8 g/dL (12.0-15.0); Lymphocytes # (A) 1.01 X 10*3/uL (0.90-5.00); MCH 32.5 pg (27.0-32.0); MCHC 31.9 g/dL (32.0-37.0); MCV 101.8 FL (80.0-97.0); Mean Platelet Volume 10.7 FL (9.5-12.2); Monocytes % (A) 2.4 %; NRBC Per 100 WBC 0 X 10*3/uL (0.00-0.01); Neutrophils # (A) 6.66 X 10*3/uL (1.80-7.70); Neutrophils % (A) 78.7 %; Platelet Count 258 X 10*3/uL (140-440); RBC 2.71 X 10*6/uL (4.10-5.20); RDW 17.1 % (11.5-14.5); WBC 8.45 X 10*3/uL (4.50-10.00)
[2025-02-13 08:35] LABS: ALT 124 U/L (8-44); AST 47 U/L (13-35); Albumin 4.1 g/dL (3.8-4.9); Albumin/Globulin Ratio 1.95 Ratio (1.60-3.17); Alkaline Phosphatase 163 U/L (41-126); BUN/Creat Ratio 9.33 Ratio (12.00-20.00); Blood Urea Nitrogen 50.4 mg/dL (9.0-27.0); Calcium 8.7 mg/dL (8.7-10.3); Carbon Dioxide 23.4 mmol/L (21.6-31.8); Chloride 94 mmol/L (96-109); Globulin 2.1 g/dL (1.6-3.3); Glucose 265 mg/dL (70-110); Potassium 4.9 mmol/L (3.5-5.5); Sodium 133 mmol/L (135-145); Total Bilirubin 0.5 mg/dL (0.3-1.2); Total Protein 6.2 g/dL (6.2-8.2)
[2025-02-13 12:03] LABS: Glucose,Whole Blood 139 mg/dL (70-110)
--- NOTE | 2025-02-13 12:05 | P.CRDCN ---
History of Present Illness Consult date: 02/13/25 Consult reason: congestive heart failure History of present illness: This is a 35-year-old female patient of Dr. Avila with past medical history of diabetes mellitus type 1 since age 6, hypertension uncontrolled, end-stage renal disease on hemodialysis, depression, anxiety, hyperlipidemia. Patient was last seen in the office in September 2023. Patient states that she does not follow very often as she has such frequent hospitalizations. Patient presented to the hospital due to difficulty in breathing. She states that she was in fluid overload. She has not missed any dialysis treatments. Patient did have a treatment done last night after she was admitted. She states the edema in her thighs and lower legs is a little improved after that dialysis treatment. She is scheduled for another dialysis treatment today. Patient also complains of left anterior chest pain which she states she usually has when she is in fluid overload. She states the pain is occasionally so hard that it makes it hard to take a deep breath. She also states she has an occasional palpation that happens randomly and not with activity. It would just be 1 heartbeat and then she will return to normal. Regarding smoking, patient states that she quit s moking 6 months ago. Blood pressure 169/92, heart rate 82, pulse ox 100% on 2 L nasal cannula. Patient's home cardiac medications have been resumed. -EKG: Sinus rhythm with no acute ST-T wave changes. -Chest x-ray: #1 worsening multifocal airspace opacities concerning for pneumonia versus pulmonary edema. #2 similar pulmonary vascular congestion versus atypical pneumonia. -Laboratory studies: WBC 8.4, hemoglobin 8.8, sodium 133, potassium 4.9, BUN 50 creatinine 5.4. Procalcitonin 0.55. Cepheid viral panel not detected. -Home cardiac medications: Aspirin 81 mg daily, atorvastatin 40 mg at bedtime, Catapres 0.3 mg 3 times daily, hydralazine 100 mg 3 times daily, Imdur 120 mg daily, labetalol 500 mg twice daily, Procardia 60 mg twice daily. -Limited echocardiogram performed on 12/22/2024 reveals normal LV function, mild pulmonary hypertension, small to moderate pericardial effusion without evidence of tamponade. -Cardiac catheterization performed 09/04/2024 revealed normal coronary arteries. Elevated left-sided filling pressures. Review Of Systems: At the time of my exam: CONSTITUTIONAL: Denies fever or chills. HEENT: Denies blurred vision, vision changes, or eye pain. Denies hemoptysis CARDIOVASCULAR: Denies chest pain. Denies orthopnea. Denies PND. Denies palpitations RESPIRATORY: Reports lower extremity edema, reports shortness of breath. GASTROINTESTINAL: Denies abdominal pain. Denies nausea or vomiting. HEMATOLOGIC: Denies bleeding disorders. GENITOURINARY: Denies any blood in urine. SKIN: Denies puritis. Denies rash. Physical examination: Gen: This is a 35-year-old female in no acute respiratory distress. VS: reviewed HEENT: Head is atraumatic, normocephalic. Pupils equal, round. Sclerae is anicteric. NECK: Supple. No JVD. LUNGS: Bilateral coarse rhonchi. No intercostal retractions. HEART: Regular rate and rhythm. No murmur. ABDOMEN: Soft No tenderness. EXTREMITIES: 1+ lower extremity edema to thigh bilaterally. No calf tenderness. NEUROLOGICAL: Patient is awake, alert and oriented x3. Assessment: Uncontrolled hypertension Acute kidney injury with fluid overload End-stage renal disease on hemodialysis Hypertension Hyperlipidemia Diabetes mellitus type 1 since age 6 Family history of coronary artery disease Remote history of tobacco use and dependence, patient quit 6 months ago Plan: Resume patient's home cardiac medications with the following changes Discontinue labetalol Start patient on Coreg 50 mg twice daily No need to repeat echocardiogram. Further recommendations to follow based upon clinical course Thank you kindly for this consultation. Nurse practitioner note has been reviewed, I agree with documented findings and plan of care. Patient was seen and examined. 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 Past Anesthesia/Blood Transfusion Reactions: Previous Problems w/ Anesthesia Additional Past Anesthesia/Blood Transfusion Reaction / Comment(s): confusion Past Psychological History: Anxiety, Depression Smoking Status: Current every day smoker Past Alcohol Use History: None Reported Additional Past Alcohol Use History / Comment(s): smokes a half PPD Past Drug Use History: Marijuana Additional Drug Use History / Comment(s): Patient states, "I haven't smoke marijauna in months." - Past Family History Father History Unknown: Yes Family Medical History: Unable to Obtain Mother History Unknown: Yes Family Medical History: No Reported History Grandfather History Unknown: Yes Family Medical History: Coronary Artery Disease (CAD) Additional Family Medical History / Comment(s): Diabetes mellitus type 2 Medications and Allergies Home Medications Medication Instructions Recorded Confirmed Type Docusate [Colace] 100 mg PO DAILY@0800 02/05/24 02/12/25 History Lidocaine 4% Patch 1 patch TOPICAL DAILY@0800 02/05/24 02/12/25 History Magnesium Hydroxide [Milk of 7,200 mg PO DAILY PRN 02/05/24 02/12/25 History Magnesia Concentrate] Ipratropium-Albuterol Nebulize 3 ml INHALATION RT-TID PRN each 02/14/24 02/12/25 Rx [Duoneb 0.5 mg-3 mg/3 ml Soln] polyethylene glycoL 3350 [Miralax] 17 gm PO AC-LUNCH #527 gm 02/14/24 02/12/25 Rx Acetaminophen [Tylenol] 650 mg PO Q4H PRN 02/18/24 02/12/25 History Biotene Dry Mouth/Throat 10 ml PO BID PRN 02/18/24 02/12/25 History Melatonin 1 mg PO HS tab 02/25/24 02/12/25 Rx Darbepoetin Artur [Aranesp] 40 mcg SQ MO 03/14/24 02/12/25 History Loratadine [Claritin] 5 mg PO DAILY tab 03/30/24 02/12/25 Rx Aspirin 81 mg PO DAILY@0800 #30 tab 05/18/24 02/12/25 Rx Famotidine [Pepcid] 20 mg PO BID #60 tab 07/11/24 02/12/25 Rx Levothyroxine Sodium [Synthroid] 175 mcg PO DAILY@0608/14/24 02/12/25 History Metoclopramide [Reglan] 5 mg PO AC-TID PRN 08/14/24 02/12/25 History Pantoprazole [Protonix] 40 mg PO DAILY@59908/14/24 02/12/25 History Sertraline [Zoloft] 200 mg PO DAILY@0808/14/24 02/12/25 History ALPRAZolam [Xanax] 0.25 mg PO BID PRN 09/04/24 02/12/25 History Calcium Acetate [PhosLo] 667 mg PO DAILY PRN 09/04/24 02/12/25 History Colchicine [Colcrys] 0.3 mg PO DAILY #15 each 09/23/24 02/12/25 Rx Ondansetron Odt [Zofran ODT] 4 mg PO Q8HR PRN 11/02/24 02/12/25 History Atorvastatin [Lipitor] 40 mg PO HS #0 11/23/24 02/12/25 Rx oxyCODONE-APAP 10-325MG [Percocet 1 tab PO Q4HR PRN #18 tab 11/23/24 02/12/25 Rx 10-325 mg] Folic Acid/Vit B Complex and C 0.8 mg PO DAILY 12/20/24 02/12/25 History [Davina-Mayte Tablet] hydrALAZINE HCL [Apresoline] 100 mg PO TID 30 Days #90 tab 01/01/25 02/12/25 Rx traZODone HCL [Desyrel] 50 mg PO HS #20 tab 01/01/25 02/12/25 Rx Divalproex ER [Depakote ER] 500 mg PO BID@0800,1700 #60 tab 01/02/25 02/12/25 Rx Isosorbide Mononitrate ER [Imdur] 120 mg PO DAILY #60 tab 01/02/25 02/12/25 Rx Labetalol [Trandate] 500 mg PO BID 30 Days #150 tab 01/02/25 02/12/25 Rx NIFEdipine XL [Procardia XL] 60 mg PO BID 30 Days #60 tab 02/18/25 03/31/25 Rx Gabapentin [Neurontin] 100 mg PO BID 30 Days #60 cap 01/03/25 02/12/25 Rx Linagliptin [Tradjenta] 5 mg PO DAILY #30 tab 01/03/25 02/12/25 Rx Insulin Lispro [humaLOG Kwikpen] 8 unit SQ AC-TID 01/22/25 02/12/25 History Insulin Lispro [humaLOG Kwikpen] See Protocol SQ AC-TID 01/22/25 02/12/25 History cloNIDine HCL [Catapres] 0.3 mg PO TID 01/22/25 02/12/25 History Butalb/APAP/Caff 50-325-40Mg 1 tab PO Q4HR PRN #12 tab 01/26/25 02/12/25 Rx [Fioricet 50-325-40] Insulin Glargine (Lantus) [Lantus 12 unit SQ BID@0700,2100 02/12/25 02/12/25 History Vial] Allergies Allergy/AdvReac Type Severity Reaction Status Date / Time hydromorphone HCl Allergy Anaphylaxis Verified 02/12/25 14:53 [From Dilaudid] propoxyphene Allergy Rash/Hives Verified 02/12/25 14:53 [From Darvocet-N] tramadol Allergy Anaphylaxis Verified 02/12/25 14:53 ibuprofen [From Motrin] AdvReac unable to Verified 02/12/25 14:53 take due to kidney disease venom-honey bee AdvReac passes out Verified 02/12/25 14:53 [bee venom (honey bee)] Physical Exam Vitals: Vital Signs Temp Pulse Pulse Resp BP BP Pulse Ox 02/13/25 08:20 84 16 02/13/25 08:14 82 16 100 02/13/25 07:38 97.3 F L 76 17 169/92 100 02/13/25 01:11 97.6 F 78 17 176/97 100 02/12/25 21:24 97.6 F 80 16 177/95 98 02/12/25 20:55 100 18 98 02/12/25 19:49 85 18 168/100 96 02/12/25 19:06 100 02/12/25 18:53 100 02/12/25 18:28 97.8 F 100 18 146/97 98 02/12/25 16:53 87 18 142/88 99 02/12/25 13:28 86 02/12/25 13:18 88 02/12/25 12:06 24 02/12/25 12:03 98 F 82 20 151/94 96 Intake and Output 02/12/25 02/13/25 02/13/25 22:59 06:59 14:59 Other: Voiding Method Toilet # Voids 0 Weight 61.689 kg Results 02/13/25 03:17 02/13/25 03:17 Cardiac Enzymes 02/12/25 02/12/25 02/13/25 Range/Units 12:49 12:49 03:17 AST 128 H 47 H (14-36) U/L Troponin I 0.015 (0.000-0.034) ng/mL Coagulation 02/12/25 Range/Units 12:49 PT 11.9 (10.0-12.5) sec APTT 24.2 (22.0-30.0) sec CBC 02/12/25 02/13/25 Range/Units 12:49 03:17 WBC 12.0 H 8.45 (3.8-10.6) k/uL RBC 3.04 L 2.71 L (3.80-5.40) m/uL Hgb 10.0 L 8.8 L (11.4-16.0) gm/dL Hct 30.6 L 27.6 L (34.0-46.0) % Plt Count 292 258 (150-450) k/uL Comprehensive Metabolic Panel 02/12/25 02/13/25 Range/Units 12:49 03:17 Sodium 127 L 133 L (137-145) mmol/L Potassium 5.4 H 4.9 (3.5-5.1) mmol/L Chloride 89 L 94 L (98-107) mmol/L Carbon Dioxide 23 23.4 (22-30) mmol/L BUN 67 H 50.4 H (7-17) mg/dL Creatinine 5.61 H 5.4 H (0.52-1.04) mg/dL Glucose 284 H 265 H (74-99) mg/dL Calcium 9.4 8.7 (8.4-10.2) mg/dL AST 128 H 47 H (14-36) U/L ALT 151 H 124 H (4-34) U/L Alkaline Phosphatase 185 H 163 H (38-126) U/L Total Protein 6.8 6.2 (6.3-8.2) g/dL Albumin 4.3 4.1 (3.5-5.0) g/dL Current Medications Generic Name Dose Route Start Last Admin Trade Name Freq PRN Reason Stop Dose Admin Acetaminophen 650 mg 02/12/25 15:22 Acetaminophen Tab 325 Mg Tab PO Q4H PRN Pain or Fever > 100.5 Acetaminophen/Butalbital/Caffeine 1 each 02/12/25 15:22 Butalb/Apap/Caff 50-325-40mg Tab PO Q4HR PRN Headache Albuterol/Ipratropium 3 ml 02/12/25 15:22 Ipratropium-Albuterol 3 Ml Neb INHALATION RT-TID PRN Shortness Of Breath Or Wheezing Albuterol/Ipratropium 3 ml 02/12/25 20:00 02/13/25 08:12 Ipratropium-Albuterol 3 Ml Neb INHALATION 3 ml RT-TID VY Administration Alprazolam 0.25 mg 02/12/25 15:22 Alprazolam 0.25 Mg Tab PO BID PRN Anxiety Aspirin 81 mg 02/13/25 08:00 02/13/25 07:51 Aspirin 81 Mg PO 81 mg DAILY@0800 VY Administration Atorvastatin Calcium 40 mg 02/12/25 21:00 02/12/25 22:29 Atorvastatin 40 Mg Tab PO 40 mg HS VY Administration Calcium Acetate 667 mg 02/12/25 15:22 Calcium Acetate 667 Mg Tab PO DAILY PRN W/SNACK Carvedilol 50 mg 02/13/25 17:30 Carvedilol 12.5 Mg Tab PO BID-W/MEALS VY Clonidine 0.3 mg 02/12/25 16:00 02/13/25 07:51 Clonidine Hcl 0.1 Mg Tab PO 0.3 mg TID VY Administration Colchicine 0.3 mg 02/13/25 09:00 02/13/25 07:52 Colchicine 0.6 Mg Each PO 0.3 mg DAILY VY Administration Darbepoetin Artur 40 mcg 02/12/25 16:00 02/12/25 16:59 Darbepoetin Artur 40 Mcg/0.4 Ml Syringe SQ 40 mcg MO VY Administration Dextrose/Water 25 ml 02/12/25 16:08 Dextrose 50% Syringe 50 Ml IVP PER PROTOCOL PRN Hypoglycemia Protocol Dextrose/Water 50 ml 02/12/25 16:08 Dextrose 50% Syringe 50 Ml IVP PER PROTOCOL PRN Hypoglycemia Protocol Divalproex Sodium 500 mg 02/12/25 17:00 02/13/25 07:51 Divalproex Er 500 Mg Tab.Er.24h PO 500 mg BID@0800,1700 VY Administration Docusate Sodium 100 mg 02/13/25 08:00 02/13/25 07:51 Docusate 100 Mg Cap PO 100 mg DAILY@0800 VY Administration Famotidine 20 mg 02/12/25 21:00 02/13/25 07:52 Famotidine 20 Mg Tab PO 20 mg BID VY Administration Gabapentin 100 mg 02/12/25 21:00 02/13/25 07:52 Gabapentin 100 Mg Cap PO 100 mg BID VY Administration Hydralazine HCl 100 mg 02/12/25 16:00 02/13/25 07:51 Hydralazine Hcl 50 Mg Tab PO 100 mg TID VY Administration Ceftriaxone Sodium 1 gm/ 50 mls @ 100 mls/hr 02/12/25 16:30 02/13/25 07:50 Sodium Chloride IVPB 100 mls/hr Q24HR VY Administration Protocol Insulin Glargine 12 unit 02/12/25 21:00 02/13/25 06:54 Insulin Glargine (Lantus) 100 Unit/Ml Syr SQ 12 unit BID@0700,2100 VY Administration Insulin Human Lispro 8 unit 02/12/25 17:30 02/13/25 06:55 Insulin Lispro (Humalog) 100 Unit/Ml 10 Ml Vl SQ 8 unit AC-TID VY Administration Insulin Human Lispro 0 unit 02/12/25 17:30 02/13/25 06:55 Insulin Lispro (Humalog) 100 Unit/Ml 10 Ml Vl SQ 3 unit ACHS VY Administration Protocol Isosorbide Mononitrate 120 mg 02/13/25 09:00 02/13/25 07:51 Isosorbide Mononitrate Er 60 Mg Tab.Er.24h PO 120 mg DAILY VY Administration Levothyroxine Sodium 176 mcg 02/13/25 06:00 02/13/25 06:54 Levothyroxine 88 Mcg Tab PO 176 mcg DAILY@0600 VY Administration Linagliptin 5 mg 02/13/25 09:00 02/13/25 07:50 Linagliptin 5 Mg Tablet PO 5 mg DAILY VY Administration Loratadine 5 mg 02/13/25 09:00 02/13/25 07:51 Loratadine 10 Mg Tab PO 5 mg DAILY VY Administration Magnesium Hydroxide 2,400 mg 02/12/25 15:22 Magnesium Hydroxide 2,400 Mg/30 Ml Cup PO DAILY PRN Constipation Melatonin 1 mg 02/12/25 21:00 02/12/25 22:29 Melatonin 1 Mg Tab PO 1 mg HS VY Administration Metoclopramide HCl 5 mg 02/12/25 15:22 Metoclopramide 5 Mg Tab PO AC-TID PRN Nausea Multivit/Ca Carb/B Cmplx/FA/Prenat 1 each 02/13/25 09:00 02/13/25 07:56 Folic Acid-Vit B Complex-Vit C 1 Cap PO 1 each DAILY VY Administration Naloxone HCl 0.2 mg 02/12/25 14:53 Naloxone 0.4 Mg/Ml 1 Ml Vial IV Q2M PRN Opioid Reversal Nifedipine 60 mg 02/12/25 21:00 02/13/25 07:56 Nifedipine Xl 60 Mg Tab.Er.24 PO 60 mg BID VY Administration Ondansetron HCl 4 mg 02/12/25 15:22 Ondansetron Odt 4 Mg Tab PO Q8HR PRN Nausea And Vomiting Oxycodone/Acetaminophen 1 each 02/12/25 15:22 02/13/25 08:00 Oxycodone-Apap 10-325mg 1 Each Tab PO 1 each Q4HR PRN Administration Pain SCALE 6-10 Pantoprazole Sodium 40 mg 02/13/25 06:00 02/13/25 06:54 Pantoprazole 40 Mg Tablet PO 40 mg DAILY@0600 VY Administration Polyethylene Glycol 17 gm 02/13/25 12:30 Polyethylene Glycol 3350 17 Gm Powd.Pack PO AC-LUNCH [facility] Sertraline HCl 200 mg 02/13/25 08:00 02/13/25 07:50 Sertraline 100 Mg Tab PO 200 mg DAILY@0800 VY Administration Trazodone HCl 50 mg 02/12/25 21:00 02/12/25 22:35 Trazodone Hcl 50 Mg Tab PO 50 mg HS VY Administration Intake and Output 02/12/25 02/13/25 02/13/25 22:59 06:59 14:59 Other: Voiding Method Toilet # Voids 0 Weight 61.689 kg 02/13/25 03:17 02/13/25 03:17
[2025-02-13] MEDS: polyethylene glycoL 3350 17 GM POWD.PACK PO SCH (12:23)
--- NOTE | 2025-02-13 12:55 | P.NPCON ---
History of Present Illness - Reason for Consult end stage renal disease - History of Present Illness Patient is a 35-year-old female with end-stage renal disease maintained on hemodialysis 4 times a week due to volume overload. Patient is admitted to the hospital with complaints of shortness of breath. She states that she may have had high salt diet over the weekend. Patient was dialyzed yesterday and will be dialyzed again today. No complaints of fever chills nausea vomiting or abdominal pain. Shortness of breath has improved. Past Medical History Past Medical History: Diabetes Mellitus, GERD/Reflux, Hypertension, Renal Disease, Seizure Disorder, Thyroid Disorder Additional Past Medical History / Comment(s): Neuropathy, last seizure 2020, gastroparesis, headaches with dialysis, states "fast heart rate" since giving ., receives Hemodialysis Wednesday- and Saturdays at 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 Past Anesthesia/Blood Transfusion Reactions: Previous Problems w/ Anesthesia Additional Past Anesthesia/Blood Transfusion Reaction / Comment(s): confusion Past Psychological History: Anxiety, Depression Smoking Status: Current every day smoker Past Alcohol Use History: None Reported Additional Past Alcohol Use History / Comment(s): smokes a half PPD Past Drug Use History: Marijuana Additional Drug Use History / Comment(s): Patient states, "I haven't smoke marijauna in months." - Past Family History Father History Unknown: Yes Family Medical History: Unable to Obtain Mother History Unknown: Yes Family Medical History: No Reported History Grandfather History Unknown: Yes Family Medical History: Coronary Artery Disease (CAD) Additional Family Medical History / Comment(s): Diabetes mellitus type 2 Medications and Allergies Home Medications Medication Instructions Recorded Confirmed Type Docusate [Colace] 100 mg PO DAILY@0800 02/05/24 02/12/25 History Lidocaine 4% Patch 1 patch TOPICAL DAILY@0800 02/05/24 02/12/25 History Magnesium Hydroxide [Milk of 7,200 mg PO DAILY PRN 02/05/24 02/12/25 History Magnesia Concentrate] Ipratropium-Albuterol Nebulize 3 ml INHALATION RT-TID PRN each 02/14/24 02/12/25 Rx [Duoneb 0.5 mg-3 mg/3 ml Soln] polyethylene glycoL 3350 [Miralax] 17 gm PO AC-LUNCH #527 gm 02/14/24 02/12/25 Rx Acetaminophen [Tylenol] 650 mg PO Q4H PRN 02/18/24 02/12/25 History Biotene Dry Mouth/Throat 10 ml PO BID PRN 02/18/24 02/12/25 History Melatonin 1 mg PO HS tab 02/25/24 02/12/25 Rx Darbepoetin Artur [Aranesp] 40 mcg SQ MO 03/14/24 02/12/25 History Loratadine [Claritin] 5 mg PO DAILY tab 03/30/24 02/12/25 Rx Aspirin 81 mg PO DAILY@0800 #30 tab 05/18/24 02/12/25 Rx Famotidine [Pepcid] 20 mg PO BID #60 tab 07/11/24 02/12/25 Rx Levothyroxine Sodium [Synthroid] 175 mcg PO DAILY@0608/14/24 02/12/25 History Metoclopramide [Reglan] 5 mg PO AC-TID PRN 08/14/24 02/12/25 History Pantoprazole [Protonix] 40 mg PO DAILY@59908/14/24 02/12/25 History Sertraline [Zoloft] 200 mg PO DAILY@0808/14/24 02/12/25 History ALPRAZolam [Xanax] 0.25 mg PO BID PRN 09/04/24 02/12/25 History Calcium Acetate [PhosLo] 667 mg PO DAILY PRN 09/04/24 02/12/25 History Colchicine [Colcrys] 0.3 mg PO DAILY #15 each 09/23/24 02/12/25 Rx Ondansetron Odt [Zofran ODT] 4 mg PO Q8HR PRN 11/02/24 02/12/25 History Atorvastatin [Lipitor] 40 mg PO HS #0 11/23/24 02/12/25 Rx oxyCODONE-APAP 10-325MG [Percocet 1 tab PO Q4HR PRN #18 tab 11/23/24 02/12/25 Rx 10-325 mg] Folic Acid/Vit B Complex and C 0.8 mg PO DAILY 12/20/24 02/12/25 History [Davina-Mayte Tablet] hydrALAZINE HCL [Apresoline] 100 mg PO TID 30 Days #90 tab 01/01/25 02/12/25 Rx traZODone HCL [Desyrel] 50 mg PO HS #20 tab 01/01/25 02/12/25 Rx Divalproex ER [Depakote ER] 500 mg PO BID@0800,1700 #60 tab 01/02/25 02/12/25 Rx Isosorbide Mononitrate ER [Imdur] 120 mg PO DAILY #60 tab 01/02/25 02/12/25 Rx Labetalol [Trandate] 500 mg PO BID 30 Days #150 tab 01/02/25 02/12/25 Rx NIFEdipine XL [Procardia XL] 60 mg PO BID 30 Days #60 tab 01/02/25 02/12/25 Rx Gabapentin [Neurontin] 100 mg PO BID 30 Days #60 cap 01/03/25 02/12/25 Rx Linagliptin [Tradjenta] 5 mg PO DAILY #30 tab 01/03/25 02/12/25 Rx Insulin Lispro [humaLOG Kwikpen] 8 unit SQ AC-TID 01/22/25 02/12/25 History Insulin Lispro [humaLOG Kwikpen] See Protocol SQ AC-TID 01/22/25 02/12/25 History cloNIDine HCL [Catapres] 0.3 mg PO TID 01/22/25 02/12/25 History Butalb/APAP/Caff 50-325-40Mg 1 tab PO Q4HR PRN #12 tab 01/26/25 02/12/25 Rx [Fioricet 50-325-40] Insulin Glargine (Lantus) [Lantus 12 unit SQ BID@0700,2100 02/12/25 02/12/25 History Vial] Allergies Allergy/AdvReac Type Severity Reaction Status Date / Time hydromorphone HCl Allergy Anaphylaxis Verified 02/12/25 14:53 [From Dilaudid] propoxyphene Allergy Rash/Hives Verified 02/12/25 14:53 [From Darvocet-N] tramadol Allergy Anaphylaxis Verified 02/12/25 14:53 ibuprofen [From Motrin] AdvReac unable to Verified 02/12/25 14:53 take due to kidney disease venom-honey bee AdvReac passes out Verified 02/12/25 14:53 [bee venom (honey bee)] Physical Exam Vitals: Vital Signs Temp Pulse Pulse Resp BP BP Pulse Ox 02/13/25 08:20 84 16 02/13/25 08:14 82 16 100 02/13/25 07:38 97.3 F L 76 17 169/92 100 02/13/25 01:11 97.6 F 78 17 176/97 100 02/12/25 21:24 97.6 F 80 16 177/95 98 02/12/25 20:55 100 18 98 02/12/25 19:49 85 18 168/100 96 02/12/25 19:06 100 02/12/25 18:53 100 02/12/25 18:28 97.8 F 100 18 146/97 98 02/12/25 16:53 87 18 142/88 99 02/12/25 13:28 86 02/12/25 13:18 88 Intake and Output 02/12/25 02/13/25 02/13/25 22:59 06:59 14:59 Other: Voiding Method Toilet # Voids 0 Weight 61.689 kg Patient is awake, comfortable, no acute distress Examination of the heart S1 and S2 Examination of the lungs bilateral breath sounds are heard Abdomen is soft nontender Examination of lower extremities shows 1+ edema [employer] exam grossly intact Results - Lab Results Most recent lab results Calcium 8.7 mg/dL (8.7-10.3) 02/13/25 03:17 Magnesium 1.7 mg/dL (1.6-2.3) 02/12/25 12:49 02/13/25 03:17 02/13/25 03:17 Assessment and Plan Assessment: 1. End-stage renal disease on hemodialysis on Wednesday schedule 2. Volume overload 3. Uncontrolled hypertension partly volume sensitive, expect improvement with improvement in volume status 4. CKD mineral bone disorder 5. Brittle diabetes Plan: Hemodialysis today with UF of 4 to 4.5 L Continue with PhosLo Continue with current antihypertensive regimen.
[2025-02-13] MEDS: LIDOCAINE 4% CREAM 5 GM TUBE TOPICAL ONE (13:45)
--- NOTE | 2025-02-13 16:44 | XR ---
EXAMINATION TYPE: XR chest 1V portable DATE OF EXAM: 02/13/2025 4:30 PM COMPARISON: Chest radiographs from 02/13/2025 CLINICAL INDICATION: Female, 35 years old with history of shortness of breath; [facility] TECHNIQUE: XR chest 1V portable Frontal view of the chest. FINDINGS: Lungs/Pleura: Scattered subtle reticular and hazy opacities. No evidence of pneumothorax, focal conso lidation or pleural effusion. Pulmonary vascularity: Unremarkable. Heart/mediastinum: Cardiomediastinal silhouette is unremarkable. Musculoskeletal: No acute osseous pathology. IMPRESSION: Pulmonary edema versus atypical infection. [facility], , 02/13/2025 4:42 PM
[2025-02-13 17:02] LABS: Glucose,Whole Blood 130 mg/dL (70-110)
[2025-02-13] MEDS: carvediloL 12.5 MG TAB PO SCH (18:26)
--- NOTE | 2025-02-13 19:19 | CT ---
EXAMINATION TYPE: CT chest wo con DATE OF EXAM: 02/13/2025 7:00 PM COMPARISON: 12/21/2024 CLINICAL INDICATION: Female, 35 years old with history of pneumonia; PH[facility], pneumonia TECHNIQUE: Multiple axial images were obtained through the chest. Sagittal and coronal reformats were created for review. MIP was performed on a separate workstation. Contrast used: mL of (None if empty) Oral contrast used: (None if empty) CT DLP: 281.8 mGycm, Automated exposure control for dose reduction was used. FINDINGS: LUNGS/ PLEURA: Intralobular septal thickening. Diffuse haziness throughout the lungs. Few scattered a irspace opacities. Trace bilateral pleural effusions. No focal consolidation, pneumothorax or pleural effusion. AIRWAY: Patent and unremarkable. HEART: Cardiomegaly is demonstrated.Trace pericardial effusion. No significant coronary artery calcif ications. MEDIASTINUM: No gross evidence of adenopathy. VASCULATURE: No aortic aneurysm. MUSCULOSKELETAL: No acute osseous abnormalities SOFT TISSUES/LYMPH NODES: Anasarca of the soft tissues. LOWER NECK: No significant findings. UPPER ABDOMEN: The liver is enlarged. IMPRESSION: 1. Pulmonary vascular congestion, ascites cardiomegaly, pericardial effusion and trace bilateral ple ural effusions. Superimposed airspace disease given a few airspace opacities not excluded. Correlate for volume overload versus pulmonary vascular congestion. 2. Hepatomegaly. [facility], , 02/13/2025 7:17 PM
[2025-02-13 21:04] LABS: Glucose,Whole Blood 71 mg/dL (70-110)
--- NOTE | 2025-02-13 22:34 | PN ---
PROGRESS NOTE DATE OF SERVICE: 02/13/2025 SUBJECTIVE: This is a 35-year-old woman, who was admitted with acute bilateral pulmonary edema, who also had renal failure. She is on hemodialysis. The patient is still complaining of shortness of breath and cough even after hemodialysis last night. Today's chest x-ray showed bilateral shadows. Multiple consultants are following the patient. PAST MEDICAL HISTORY: Reviewed. REVIEW OF SYSTEMS: Fourteen-point review of systems negative except as mentioned earlier. MEDICATIONS: Reviewed. PHYSICAL EXAMINATION: VITAL SIGNS: Pulse is 84, blood pressure 160/92, respirations 17. HEENT: Conjunctivae normal. NECK: No JVD. CARDIOVASCULAR: S1, S2. RESPIRATIONS: Breath sounds diminished at the bases. A few scattered rhonchi. ABDOMEN: Soft. NERVOUS SYSTEM: Nonfocal. LABORATORY DATA: Sodium 130. Rest of labs are noted. ASSESSMENT: 1. Acute bilateral pulmonary edema secondary to renal failure. 2. Ievpd-ag-npiguhem pericardial effusion in the 2D echo is last month. 3. End-stage renal disease, on hemodialysis. 4. Rule out congestive heart failure. 5. Diabetes mellitus, type 2. 6. Hypertension. 7. History of seizures. 8. Acute purulent tracheobronchitis. RECOMMENDATIONS: Recommended to continue with current management. Continue with symptomatic treatment otherwise. Would also recommend a CT scan of the chest without any contrast also. Recommended empiric antibiotics, and also recommended a 2D echo with Doppler. Further recommendations to follow. MMODL / IJN: [id number] /
[2025-02-14 01:06] LABS: Glucose,Whole Blood 63 mg/dL (70-110)
[2025-02-14 03:09] LABS: Glucose,Whole Blood 100 mg/dL (70-110)
[2025-02-14] MEDS: IPRATROPIUM-ALBUTEROL 3 ML NEB INHALATION PRN (03:25)
[2025-02-14 06:26] LABS: Glucose,Whole Blood 267 mg/dL (70-110)
[2025-02-14] MEDS: FAMOTIDINE 20 MG TAB PO SCH (08:07)
[2025-02-14 08:33] LABS: ALT 125 U/L (8-44); AST 78 U/L (13-35); Alkaline Phosphatase 195 U/L (41-126); BUN/Creat Ratio 8.05 Ratio (12.00-20.00); Blood Urea Nitrogen 30.6 mg/dL (9.0-27.0); Calcium 8.8 mg/dL (8.7-10.3); Carbon Dioxide 28.9 mmol/L (21.6-31.8); Chloride 96 mmol/L (96-109); Globulin 2.1 g/dL (1.6-3.3); Glucose 90 mg/dL (70-110); Potassium 4.7 mmol/L (3.5-5.5); Sodium 137 mmol/L (135-145); Total Bilirubin 0.4 mg/dL (0.3-1.2); Total Protein 6.1 g/dL (6.2-8.2)
[2025-02-14 08:51] LABS: Basophils # (A) 0.13 X 10*3/uL (0.00-0.10); Basophils % (A) 2.1 %; Eosinophils # (A) 0.42 X 10*3/uL (0.04-0.35); Eosinophils % (A) 6.8 %; HCT 27.8 % (37.2-46.3); HGB 8.5 g/dL (12.0-15.0); Lymphocytes # (A) 0.93 X 10*3/uL (0.90-5.00); MCH 31.5 pg (27.0-32.0); MCHC 30.6 g/dL (32.0-37.0); Mean Platelet Volume 10.2 FL (9.5-12.2); Monocytes # (A) 0.29 X 10*3/uL (0.20-1.00); Monocytes % (A) 4.7 %; NRBC Per 100 WBC 0 X 10*3/uL (0.00-0.01); Neutrophils % (A) 70.9 %; Platelet Count 253 X 10*3/uL (140-440); RDW 16.9 % (11.5-14.5)
[2025-02-14 11:18] LABS: Glucose,Whole Blood 271 mg/dL (70-110)
--- NOTE | 2025-02-14 12:27 | P.PN ---
Subjective Progress Note Date: 02/14/25 Consult reason: congestive heart failure History of present illness: This is a 35-year-old female patient of Dr. Avila with past medical history of diabetes mellitus type 1 since age 6, hypertension uncontrolled, end-stage renal disease on hemodialysis, depression, anxiety, hyperlipidemia. Patient was last seen in the office in September 2023. Patient states that she does not follow very often as she has such frequent hospitalizations. Patient presented to the hospital due to difficulty in breathing. She states that she was in fluid overload. She has not missed any dialysis treatments. Patient did have a treatment done last night after she was admitted. She states the edema in her thighs and lower legs is a little improved after that dialysis treatment. She is scheduled for another dialysis treatment today. Patient also complains of left anterior chest pain which she states she usually has when she is in fluid overload. She states the pain is occasionally so hard that it makes it hard to take a deep breath. She also states she has an occasional palpation that happens randomly and not with activity. It would just be 1 heartbeat and then she will return to normal. Regarding smoking, patient states that she quit smoking 6 months ago. Blood pressure 169/92, heart rate 82, pulse ox 100% on 2 L nasal cannula. Patient's home cardiac medications have been resumed. -EKG: Sinus rhythm with no acute ST-T wave changes. -Chest x-ray: #1 worsening multifocal airspace opacities concerning for pneumonia versus pulmonary edema. #2 similar pulmonary vascular congestion versus atypical pneumonia. -Laboratory studies: WBC 8.4, hemoglobin 8.8, sodium 133, potassium 4.9, BUN 50 creatinine 5.4. Procalcitonin 0.55. Cepheid viral panel not detected. -Home cardiac medications: Aspirin 81 mg daily, atorvastatin 40 mg at bedtime, Catapres 0.3 mg 3 times daily, hydralazine 100 mg 3 times daily, Imdur 120 mg daily, labetalol 500 mg twice daily, Procardia 60 mg twice daily. -Limited echocardiogram performed on 12/22/2024 reveals normal LV function, mild pulmonary hypertension, small to moderate pericardial effusion without evidence of tamponade. -Cardiac catheterization performed 09/04/2024 revealed normal coronary arteries. Elevated left-sided filling pressures. 02/14 Patient seen and examined. Yesterday, labetalol was discontinued and we started patient on Coreg 50 mg twice daily. Blood pressure readings are improved but still elevated. Blood pressure 154/85, heart rate is in the 80s and 70s, pulse ox 99% on 2 L nasal cannula. Patient states that she is not getting dialysis today. Repeat blood work reveals hemoglobin 8.5, creatinine 3.8. Sodium [address] chest performed last evening reveals pulmonary vascular congestion, ascites, cardiomegaly, pericardial effusion and trace bilateral pleural effusions. Superimposed airspace disease giving a few airspace opacities not excluded. Correlate for volume overload versus pulmonary vascular congestion. Hepatomegaly. Physical examination: Gen: This is a 35-year-old female in no acute respiratory distress. VS: reviewed HEENT: Head is atraumatic, normocephalic. Pupils equal, round. Sclerae is anicteric. NECK: Supple. No JVD. LUNGS: Bilateral coarse rhonchi. No intercostal retractions. HEART: Regular rate and rhythm. No murmur. ABDOMEN: Soft No tenderness. EXTREMITIES: 1+ lower extremity edema. No calf tenderness. NEUROLOGICAL: Patient is awake, alert and oriented x3. Assessment: Uncontrolled hypertension Acute kidney injury with fluid overload End-stage renal disease on hemodialysis Hypertension Hyperlipidemia Chronic pericardial effusion Diabetes mellitus type 1 since age 6 Family history of coronary artery disease Remote history of tobacco use and dependence, patient quit 6 months ago Plan: Continue patient's home cardiac medications with the following changes Discontinue labetalol Continue patient on Coreg 50 mg twice daily No need to repeat echocardiogram. Further recommendations to follow based upon clinical course Nurse practitioner note has been reviewed, I agree with documented findings and plan of care. Patient was seen and examined. Objective - Vital Signs Vital signs: Vital Signs Temp 98.4 F 02/14/25 07:00 Pulse 82 02/14/25 08:23 Resp 15 02/14/25 07:00 BP 154/85 02/14/25 07:00 Pulse Ox 99 02/14/25 08:12 FiO2 Intake & Output 02/13/25 02/14/25 02/14/25 18:59 06:59 18:59 Intake Total 400 2160 Output Total 6400 Balance -6000 2160 Intake: Oral 2160 Hemodialysis 400 Output: Hemodialysis 3400 Hemodialysis Net Amount 3000 Other: Voiding Method Toilet # Voids 5 - Labs CBC & Chem 7: 02/14/25 03:17 04/02/25 03:17 Labs: Abnormal Lab Results - Last 24 Hours (Table) 02/13/25 02/13/25 02/14/25 Range/Units 12:01 17:00 01:05 RBC (4.10-5.20) X 10*6/uL Hgb (12.0-15.0) g/dL Hct (37.2-46.3) % MCV (80.0-97.0) FL MCHC (32.0-37.0) g/dL RDW (11.5-14.5) % Eosinophils # (0.04-0.35) X 10*3/uL Basophils # (0.00-0.10) X 10*3/uL Anion Gap (4.00-12.00) mmol/L BUN (9.0-27.0) mg/dL Creatinine (0.6-1.5) mg/dL Est GFR (CKD-EPI) (>=60) BUN/Creatinine Ratio (12.00-20.00) Ratio POC Glucose (mg/dL) 139 H 130 H 63 L (70-110) mg/dL AST (13-35) U/L ALT (8-44) U/L Alkaline Phosphatase (41-126) U/L Total Protein (6.2-8.2) g/dL 02/14/25 02/14/25 02/14/25 Range/Units 03:17 03:17 06:24 RBC 2.70 L (4.10-5.20) X 10*6/uL Hgb 8.5 L (12.0-15.0) g/dL Hct 27.8 L (37.2-46.3) % MCV 103.0 H (80.0-97.0) FL MCHC 30.6 L (32.0-37.0) g/dL RDW 16.9 H (11.5-14.5) % Eosinophils # 0.42 H (0.04-0.35) X 10*3/uL Basophils # 0.13 H (0.00-0.10) X 10*3/uL Anion Gap 12.10 H (4.00-12.00) mmol/L BUN 30.6 H (9.0-27.0) mg/dL Creatinine 3.8 H (0.6-1.5) mg/dL Est GFR (CKD-EPI) 15 L (>=60) BUN/Creatinine Ratio 8.05 L (12.00-20.00) Ratio POC Glucose (mg/dL) 267 H (70-110) mg/dL AST 78 H (13-35) U/L ALT 125 H (8-44) U/L Alkaline Phosphatase 195 H (41-126) U/L Total Protein 6.1 L (6.2-8.2) g/dL Microbiology - Last 24 Hours (Table) 02/13/25 21:39 Gram Stain - Preliminary Sputum 02/12/25 16:55 Blood Culture - Preliminary Blood
--- NOTE | 2025-02-14 13:41 | P.PN ---
Subjective Patient is seen for follow-up for end-stage renal disease. Shortness of breath has improved. Scheduled for hemodialysis in a.m. Objective - Vital Signs Vital signs: Vital Signs Temp 98.4 F 02/14/25 07:00 Pulse 82 02/14/25 08:23 Resp 15 02/14/25 07:00 BP 154/85 02/14/25 07:00 Pulse Ox 99 02/14/25 08:12 FiO2 Intake & Output 02/13/25 02/14/25 02/14/25 18:59 06:59 18:59 Intake Total 400 2160 Output Total 6400 Balance -6000 2160 Intake: Oral 2160 Hemodialysis 400 Output: Hemodialysis 3400 Hemodialysis Net Amount 3000 Other: Voiding Method Toilet # Voids 5 - Exam Patient is awake, comfortable, no acute distress Examination of the heart S1 and S2 Examination of the lungs bilateral breath sounds are heard Abdomen is soft nontender Examination of lower extremities shows 1+ edema [employer] exam grossly intact - Labs CBC & Chem 7: 02/14/25 03:17 02/14/25 03:17 Labs: Abnormal Lab Results - Last 24 Hours (Table) 02/13/25 02/14/25 02/14/25 Range/Units 17:00 01:05 03:17 RBC 2.70 L (4.10-5.20) X 10*6/uL Hgb 8.5 L (12.0-15.0) g/dL Hct 27.8 L (37.2-46.3) % MCV 103.0 H (80.0-97.0) FL MCHC 30.6 L (32.0-37.0) g/dL RDW 16.9 H (11.5-14.5) % Eosinophils # 0.42 H (0.04-0.35) X 10*3/uL Basophils # 0.13 H (0.00-0.10) X 10*3/uL Anion Gap (4.00-12.00) mmol/L BUN (9.0-27.0) mg/dL Creatinine (0.6-1.5) mg/dL Est GFR (CKD-EPI) (>=60) BUN/Creatinine Ratio (12.00-20.00) Ratio POC Glucose (mg/dL) 130 H 63 L (70-110) mg/dL AST (13-35) U/L ALT (8-44) U/L Alkaline Phosphatase (41-126) U/L Total Protein (6.2-8.2) g/dL 02/14/25 02/14/25 02/14/25 Range/Units 03:17 06:24 11:17 RBC (4.10-5.20) X 10*6/uL Hgb (12.0-15.0) g/dL Hct (37.2-46.3) % MCV (80.0-97.0) FL MCHC (32.0-37.0) g/dL RDW (11.5-14.5) % Eosinophils # (0.04-0.35) X 10*3/uL Basophils # (0.00-0.10) X 10*3/uL Anion Gap 12.10 H (4.00-12.00) mmol/L BUN 30.6 H (9.0-27.0) mg/dL Creatinine 3.8 H (0.6-1.5) mg/dL Est GFR (CKD-EPI) 15 L (>=60) BUN/Creatinine Ratio 8.05 L (12.00-20.00) Ratio POC Glucose (mg/dL) 267 H 271 H (70-110) mg/dL AST 78 H (13-35) U/L ALT 125 H (8-44) U/L Alkaline Phosphatase 195 H (41-126) U/L Total Protein 6.1 L (6.2-8.2) g/dL Microbiology - Last 24 Hours (Table) 02/13/25 21:39 Gram Stain - Preliminary Sputum 02/12/25 16:55 Blood Culture - Preliminary Blood Assessment and Plan Assessment: 1. End-stage renal disease on hemodialysis on Wednesday schedule 2. Volume overload 3. Uncontrolled hypertension partly volume sensitive, expect improvement with improvement in volume status 4. CKD mineral bone disorder 5. Brittle diabetes Plan: Hemodialysis in a.m. with UF of 4 to 4.5 L Continue with PhosLo Continue with current antihypertensive regimen. Expect improvement in blood pressure with improved volume status.
[2025-02-14 16:19] LABS: Glucose,Whole Blood 181 mg/dL (70-110)
--- NOTE | 2025-02-14 16:25 | XR ---
EXAMINATION TYPE: XR chest 1V portable DATE OF EXAM: 02/14/2025 4:16 PM COMPARISON: Chest radiographs from 02/13/2025 CLINICAL INDICATION: Female, 35 years old with history of shortness of breath; TECHNIQUE: XR chest 1V portable Frontal view of the chest. FINDINGS: Lungs/Pleura: Scattered subtle reticular and hazy opacities. No evidence of pneumothorax, focal conso lidation or pleural effusion. Pulmonary vascularity: Unremarkable. Heart/mediastinum: Cardiomediastinal silhouette is unremarkable. Musculoskeletal: No acute osseous pathology. Other findings: None Lines/Tubes: IMPRESSION: Subtle scattered opacities which may represent an atypical pneumonia. [facility], , 02/14/2025 4:22 PM
[2025-02-14] MEDS: BUTALB/APAP/CAFF 50-325-40MG TAB PO PRN (18:06)
[2025-02-14 21:03] LABS: Glucose,Whole Blood 177 mg/dL (70-110)
[2025-02-14] MEDS: ALPRAZolam 0.25 MG TAB PO PRN (21:41)
--- NOTE | 2025-02-15 02:13 | PN ---
PROGRESS NOTE DATE OF SERVICE: 02/14/2025 SUBJECTIVE: This 35-year-old woman, who was admitted with acute bilateral pulmonary edema and end- stage renal disease. The patient received hemodialysis 4 times a day. Despite that, the patient has recurrent episodes of CHF. The patient has mild to moderate pericardial effusion. PAST MEDICAL HISTORY: Reviewed. REVIEW OF SYSTEMS: Fourteen-point review of systems negative except as mentioned earlier. CURRENT MEDICATIONS: Reviewed. PHYSICAL EXAMINATION: VITAL SIGNS: Pulse 84, blood pressure 143/83, respirations 16. HEENT: Conjunctivae normal. NECK: No JVD. CARDIOVASCULAR: S1, S2. RESPIRATIONS: Breath sounds diminished at the bases. A few scattered rhonchi. ABDOMEN: Soft. NERVOUS SYSTEM: Nonfocal. LABORATORY DATA: Hemoglobin 8.5. Other labs reviewed. Procalcitonin is elevated. ASSESSMENT: 1. Acute bilateral pulmonary edema secondary to renal failure. 2. Small to moderate pericardial effusion in the 2D echo. 3. End-stage renal disease, on hemodialysis. 4. Possible acute bronchitis. 5. Congestive heart failure acute exacerbation. 6. Diabetes mellitus type 2. 7. Hypertension. 8. History of seizures. 9. Elevated procalcitonin level. RECOMMENDATIONS: Recommend to continue current management and continue symptomatic treatment. Otherwise, continue the hemodialysis. Monitor fluid-electrolyte balance closely. I would recommend empiric antibiotics and follow the cultures which are negative so far. Repeat labs. Continue the hemodialysis. Closely follow with Pulmonary and Cardiology. Prognosis guarded. Further recommendations to follow. MMODL / IJN: [id number] /
[2025-02-15 06:28] LABS: Glucose,Whole Blood 230 mg/dL (70-110)
[2025-02-15 08:45] LABS: Basophils # (A) 0.11 X 10*3/uL (0.00-0.10); Basophils % (A) 1.6 %; Eosinophils # (A) 0.56 X 10*3/uL (0.04-0.35); Eosinophils % (A) 8.3 %; HCT 26.9 % (37.2-46.3); HGB 8.3 g/dL (12.0-15.0); Lymphocytes # (A) 1.17 X 10*3/uL (0.90-5.00); Lymphocytes % (A) 17.3 %; MCH 31.7 pg (27.0-32.0); MCHC 30.9 g/dL (32.0-37.0); MCV 102.7 FL (80.0-97.0); Mean Platelet Volume 10.7 FL (9.5-12.2); Monocytes # (A) 0.34 X 10*3/uL (0.20-1.00); NRBC Per 100 WBC 0 X 10*3/uL (0.00-0.01); Neutrophils # (A) 4.56 X 10*3/uL (1.80-7.70); Neutrophils % (A) 67.4 %; Platelet Count 259 X 10*3/uL (140-440); RBC 2.62 X 10*6/uL (4.10-5.20); RDW 16.7 % (11.5-14.5); WBC 6.77 X 10*3/uL (4.50-10.00)
[2025-02-15 08:47] LABS: BUN/Creat Ratio 10.31 Ratio (12.00-20.00); Blood Urea Nitrogen 53.6 mg/dL (9.0-27.0); Calcium 8.6 mg/dL (8.7-10.3); Carbon Dioxide 24.7 mmol/L (21.6-31.8); Chloride 93 mmol/L (96-109); Glucose 247 mg/dL (70-110); Potassium 6.2 mmol/L (3.5-5.5); Sodium 132 mmol/L (135-145)
--- NOTE | 2025-02-15 09:45 | P.PN ---
Subjective Progress Note Date: 02/15/25 Consult reason: congestive heart failure History of present illness: This is a 35-year-old female patient of Dr. Avila with past medical history of diabetes mellitus type 1 since age 6, hypertension uncontrolled, end-stage renal disease on hemodialysis, depression, anxiety, hyperlipidemia. Patient was last seen in the office in September 2023. Patient states that she does not follow very often as she has such frequent hospitalizations. Patient presented to the hospital due to difficulty in breathing. She states that she was in fluid overload. She has not missed any dialysis treatments. Patient did have a treatment done last night after she was admitted. She states the edema in her thighs and lower legs is a little improved after that dialysis treatment. She is scheduled for another dialysis treatment today. Patient also complains of left anterior chest pain which she states she usually has when she is in fluid overload. She states the pain is occasionally so hard that it makes it hard to take a deep breath. She also states she has an occasional palpation that happens randomly and not with activity. It would just be 1 heartbeat and then she will return to normal. Regarding smoking, patient states that she quit smoking 6 months ago. Blood pressure 169/92, heart rate 82, pulse ox 100% on 2 L nasal cannula. Patient's home cardiac medications have been resumed. -EKG: Sinus rhythm with no acute ST-T wave changes. -Chest x-ray: #1 worsening multifocal airspace opacities concerning for pneumonia versus pulmonary edema. #2 similar pulmonary vascular congestion versus atypical pneumonia. -Laboratory studies: WBC 8.4, hemoglobin 8.8, sodium 133, potassium 4.9, BUN 50 creatinine 5.4. Procalcitonin 0.55. Cepheid viral panel not detected. -Home cardiac medications: Aspirin 81 mg daily, atorvastatin 40 mg at bedtime, Catapres 0.3 mg 3 times daily, hydralazine 100 mg 3 times daily, Imdur 120 mg daily, labetalol 500 mg twice daily, Procardia 60 mg twice daily. -Limited echocardiogram performed on 12/22/2024 reveals normal LV function, mild pulmonary hypertension, small to moderate pericardial effusion without evidence of tamponade. -Cardiac catheterization performed 09/04/2024 revealed normal coronary arteries. Elevated left-sided filling pressures. 02/14 Patient seen and examined. Yesterday, labetalol was discontinued and we started patient on Coreg 50 mg twice daily. Blood pressure readings are improved but still elevated. Blood pressure 154/85, heart rate is in the 80s and 70s, pulse ox 99% on 2 L nasal cannula. Patient states that she is not getting dialysis today. Repeat blood work reveals hemoglobin 8.5, creatinine 3.8. Sodium [address] chest performed last evening reveals pulmonary vascular congestion, ascites, cardiomegaly, pericardial effusion and trace bilateral pleural effusions. Superimposed airspace disease giving a few airspace opacities not excluded. Correlate for volume overload versus pulmonary vascular congestion. Hepatomegaly. 02/15 Patient is undergoing dialysis at the time of evaluation. She states she is not feeling well this morning. Blood pressure readings are much improved with the medication changes made blood pressure 138/77, heart rate in the 60s and 70s, pulse ox 100% on 4 L nasal cannula. Repeat blood work reveals hemoglobin 8.3, potassium 6.2, creatinine 5.2.. Physical examination: Gen: This is a 35-year-old female in no acute respiratory distress. VS: reviewed HEENT: Head is atraumatic, normocephalic. Pupils equal, round. Sclerae is anicteric. NECK: Supple. No JVD. LUNGS: Bilateral coarse rhonchi. No intercostal retractions. HEART: Regular rate and rhythm. No murmur. ABDOMEN: Soft No tenderness. EXTREMITIES: 1+ lower extremity edema. No calf tenderness. NEUROLOGICAL: Patient is awake, alert and oriented x3. Assessment: Uncontrolled hypertension Acute kidney injury with fluid overload End-stage renal disease on hemodialysis Hypertension Hyperlipidemia Chronic pericardial effusion Diabetes mellitus type 1 since age 6 Family history of coronary artery disease Remote history of tobacco use and dependence, patient quit 6 months ago Plan: Continue patient's home cardiac medications with the following changes Discontinue labetalol Continue patient on Coreg 50 mg twice daily These medication changes will be reflected in her Discharge Plan No need to repeat echocardiogram. No further cardiac workup at this time Cardiology will sign off this case and follow on an as-needed basis. Please reconsult for any new concerns. Patient may follow-up in the office in one to 2 weeks. Nurse practitioner note has been reviewed, I agree with documented findings and plan of care. Patient was seen and examined. Objective - Vital Signs Vital signs: Vital Signs Temp 96.8 F L 02/15/25 01:13 Pulse 64 02/15/25 09:20 Resp 18 02/15/25 07:13 BP 138/77 02/15/25 07:13 Pulse Ox 100 02/15/25 07:13 FiO2 Intake & Output 02/14/25 02/15/25 02/15/25 18:59 06:59 18:59 Intake Total 3240 Balance 3240 Intake: Oral 3240 Other: Voiding Method Toilet Toilet # Voids 4 5 # Bowel Movements 1 - Labs CBC & Chem 7: 02/15/25 04:35 02/15/25 04:35 Labs: Abnormal Lab Results - Last 24 Hours (Table) 02/14/25 02/14/25 02/14/25 Range/Units 11:17 16:17 21:02 RBC (4.10-5.20) X 10*6/uL Hgb (12.0-15.0) g/dL Hct (37.2-46.3) % MCV (80.0-97.0) FL MCHC (32.0-37.0) g/dL RDW (11.5-14.5) % Eosinophils # (0.04-0.35) X 10*3/uL Basophils # (0.00-0.10) X 10*3/uL Sodium (135-145) mmol/L Potassium (3.5-5.5) mmol/L Chloride (96-109) mmol/L Anion Gap (4.00-12.00) mmol/L BUN (9.0-27.0) mg/dL Creatinine (0.6-1.5) mg/dL Est GFR (CKD-EPI) (>=60) BUN/Creatinine Ratio (12.00-20.00) Ratio Glucose (70-110) mg/dL POC Glucose (mg/dL) 271 H 181 H 177 H (70-110) mg/dL Calcium (8.7-10.3) mg/dL 02/15/25 02/15/25 02/15/25 Range/Units 04:35 04:35 06:26 RBC 2.62 L (4.10-5.20) X 10*6/uL Hgb 8.3 L (12.0-15.0) g/dL Hct 26.9 L (37.2-46.3) % MCV 102.7 H (80.0-97.0) FL MCHC 30.9 L (32.0-37.0) g/dL RDW 16.7 H (11.5-14.5) % Eosinophils # 0.56 H (0.04-0.35) X 10*3/uL Basophils # 0.11 H (0.00-0.10) X 10*3/uL Sodium 132 L (135-145) mmol/L Potassium 6.2 A* (3.5-5.5) mmol/L Chloride 93 L (96-109) mmol/L Anion Gap 14.30 H (4.00-12.00) mmol/L BUN 53.6 H (9.0-27.0) mg/dL Creatinine 5.2 H (0.6-1.5) mg/dL Est GFR (CKD-EPI) 10 L (>=60) BUN/Creatinine Ratio 10.31 L (12.00-20.00) Ratio Glucose 247 H (70-110) mg/dL POC Glucose (mg/dL) 230 H (70-110) mg/dL Calcium 8.6 L (8.7-10.3) mg/dL Microbiology - Last 24 Hours (Table) 02/12/25 16:55 Blood Culture - Preliminary Blood 02/13/25 21:39 Gram Stain - Preliminary Sputum
[2025-02-15 11:10] LABS: Glucose,Whole Blood 103 mg/dL (70-110)
--- NOTE | 2025-02-15 12:11 | P.PN ---
Subjective Patient is seen for follow-up for end-stage renal disease. Patient remains significantly volume overloaded. Seen on hemodialysis today. We will repeat hemodialysis in a.m. 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 - Labs CBC & Chem 7: 02/15/25 04:35 02/15/25 04:35 Labs: Abnormal Lab Results - Last 24 Hours (Table) 02/14/25 02/14/25 02/15/25 Range/Units 16:17 21:02 04:35 RBC 2.62 L (4.10-5.20) X 10*6/uL Hgb 8.3 L (12.0-15.0) g/dL Hct 26.9 L (37.2-46.3) % MCV 102.7 H (80.0-97.0) FL MCHC 30.9 L (32.0-37.0) g/dL RDW 16.7 H (11.5-14.5) % Eosinophils # 0.56 H (0.04-0.35) X 10*3/uL Basophils # 0.11 H (0.00-0.10) X 10*3/uL Sodium (135-145) mmol/L Potassium (3.5-5.5) mmol/L Chloride (96-109) mmol/L Anion Gap (4.00-12.00) mmol/L BUN (9.0-27.0) mg/dL Creatinine (0.6-1.5) mg/dL Est GFR (CKD-EPI) (>=60) BUN/Creatinine Ratio (12.00-20.00) Ratio Glucose (70-110) mg/dL POC Glucose (mg/dL) 181 H 177 H (70-110) mg/dL Calcium (8.7-10.3) mg/dL 02/15/25 02/15/25 Range/Units 04:35 06:26 RBC (4.10-5.20) X 10*6/uL Hgb (12.0-15.0) g/dL Hct (37.2-46.3) % MCV (80.0-97.0) FL MCHC (32.0-37.0) g/dL RDW (11.5-14.5) % Eosinophils # (0.04-0.35) X 10*3/uL Basophils # (0.00-0.10) X 10*3/uL Sodium 132 L (135-145) mmol/L Potassium 6.2 A* (3.5-5.5) mmol/L Chloride 93 L (96-109) mmol/L Anion Gap 14.30 H (4.00-12.00) mmol/L BUN 53.6 H (9.0-27.0) mg/dL Creatinine 5.2 H (0.6-1.5) mg/dL Est GFR (CKD-EPI) 10 L (>=60) BUN/Creatinine Ratio 10.31 L (12.00-20.00) Ratio Glucose 247 H (70-110) mg/dL POC Glucose (mg/dL) 230 H (70-110) mg/dL Calcium 8.6 L (8.7-10.3) mg/dL Microbiology - Last 24 Hours (Table) 02/12/25 16:55 Blood Culture - Preliminary Blood Assessment and Plan Assessment: 1. End-stage renal disease on hemodialysis on Wednesday schedule 2. Volume overload 3. Uncontrolled hypertension partly volume sensitive, expect improvement with improvement in volume status 4. CKD mineral bone disorder 5. Brittle diabetes Plan: Hemodialysis today and in a.m. Continue with PhosLo Continue with current antihypertensive regimen. Expect improvement in blood pressure with improved volume status.
[2025-02-15 16:29] LABS: Glucose,Whole Blood 127 mg/dL (70-110)
[2025-02-15] MEDS: ALPRAZolam 0.25 MG TAB PO PRN (17:35)
[2025-02-15 20:11] LABS: Anti-DNA, DS unit <1.0 IU/mL; DNA Double-Stranded Negative (Negative)
[2025-02-15 20:29] LABS: Glucose,Whole Blood 124 mg/dL (70-110)
--- NOTE | 2025-02-15 22:16 | PN ---
PROGRESS NOTE DATE OF SERVICE: 02/15/2025 SUBJECTIVE: This is a 35-year-old woman, who was admitted with CHF and as well as pericardial effusion, is being closely monitored. Dialysis to remove 5 L. OBJECTIVE: VITAL SIGNS: Pulse is 77, blood pressure 140/73, respirations 17. CHEST: A few scattered rhonchi and crackles. ABDOMEN: Soft. NERVOUS SYSTEM: Nonfocal. LABORATORY DATA: Potassium 6.2. ASSESSMENT: 1. Acute bilateral pulmonary edema secondary to renal failure. 2. Smeiu-cp-ekubhyvg pericardial effusion in the 2D echo. 3. End-stage renal disease, on hemodialysis. 4. Possible acute bronchitis. 5. Congestive heart failure acute exacerbation. 6. Diabetes mellitus, type 2. 7. Hypertension. 8. History of seizures. 9. Elevated procalcitonin level on admission. RECOMMENDATIONS: Recommend to continue current management and continue symptomatic treatment. Continue with hemodialysis. Fluid restriction to 1200 mL per 24 hours has to be reinforced. Otherwise, continue to monitor. Guarded prognosis because of multiple complex medical issues. Further recommendations to follow. MMODL / IJN: [id number] /
[2025-02-16 06:16] LABS: Glucose,Whole Blood 162 mg/dL (70-110)
[2025-02-16 09:59] LABS: Histone Antibody 1.9 UNITS (<1.0)
[2025-02-16 11:18] LABS: Glucose,Whole Blood 54 mg/dL (70-110)
[2025-02-16 11:30] LABS: Glucose,Whole Blood 60 mg/dL (70-110)
--- NOTE | 2025-02-16 11:31 | XR ---
EXAMINATION TYPE: XR chest 1V portable DATE OF EXAM: 02/16/2025 CLINICAL INDICATION: Female, 35 years old with history of shortness of breath, progress study. TECHNIQUE: Single AP portable upright view of the chest is obtained. COMPARISON: Chest x-ray from 2 days earlier FINDINGS: Persistent cardiomegaly with moderate central vascular congestion. No new focal airspace o pacity or pneumothorax seen bilaterally. IMPRESSION: Findings consistent with continued CHF exacerbation/fluid overload state are thought pres ent. Correlate clinically. [facility], , 02/16/2025 11:29 AM
[2025-02-16 11:49] LABS: Glucose,Whole Blood 57 mg/dL (70-110)
[2025-02-16 11:55] LABS: Glucose,Whole Blood 67 mg/dL (70-110)
--- NOTE | 2025-02-16 11:57 | CDI ---
Documentation Clarification Form Date: 02/16/2025 11:15:12 AM From: Jeanne Whitmore RN, CCDS Phone: [phone] Admit Date: 02/14/2025 08:04:00 AM Patient Name: Marita Perrin Visit Number: [id number] Discharge Date: ATTENTION: The Clinical Documentation Specialists (CDI) and [facility] Coding Staff appreciate your assistance in clarifying documentation. Please respond to the clarification below the line at the bottom and electronically sign. The CDI & [facility] Coding staff will review the response and follow-up if needed. Please note: Queries are made part of the Legal Health Record. If you have any questions, please contact the author of this message via ITS. DoctorKaterin Chan Your patient has the documented diagnosis of unspecified CHF exacerbation. Additional information regarding the type of CHF is requested. History/Risk Factors: Thyroid Disorder, Diabetes Mellitus, GERD/Reflux, Hypertension Clinical Indicators: 35-year-old female present with complaints of shortness of breath admitted with CHF and pericardial effusion. She is seen by Nephrology for End-stage renal disease on Dialysis per nephrology has pulmonary edema. VS/Pulse OX: 151/94 82 20 96 % RA BNP: 16755 Echocardiogram Results: (12/22/24) Left Ventricular ejection fraction is estimated at 55-60%. Mildly increased septal wall thickness. Mild pulmonary hypertension. Small to moderate amount of pericardial effusion without any evidence of tamponade. Chest X Ray: 02/12 Worsening Multifocal airspace opacities concerning for pneumonia VS pulmonary edema. Chest X-ray: 02/13 Pulmonary vascular congestion, ascites cardiomegaly, pericardial effusion and trace bilateral pleural effusion. Correlate for volume overload versus pulmonary vascular congestion. 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 [ ] Acute Diastolic Heart Failure (preserved EF) [ ] Acute on Chronic Diastolic Heart Failure (preserved EF [ ] Other, please specify [ ] Unable to determine (Template Last Revised: December 2020) Acute Diastolic Heart Failure MTDD
[2025-02-16 12:04] LABS: Glucose,Whole Blood 71 mg/dL (70-110)
[2025-02-16 12:28] LABS: Glucose,Whole Blood 96 mg/dL (70-110)
[2025-02-16 12:41] LABS: C-ANCA <1:20 Titer (<1:20)
--- NOTE | 2025-02-16 15:42 | P.PN ---
Subjective Patient is seen for follow-up for end-stage renal disease. Patient remains significantly volume overloaded. Scheduled for hemodialysis again today due to significant volume overload. Small pericardial effusion noted on CT chest. Patient is maintained on hydralazine and antihistone antibody was positive. Hydralazine will be discontinued. Although I believe her effusion is mostly related to severe volume overload. Objective - Vital Signs Vital signs: Vital Signs Temp 98.8 F 02/16/25 13:10 Pulse 80 02/16/25 13:54 Resp 19 02/16/25 13:10 BP 115/66 02/16/25 13:10 Pulse Ox 100 02/16/25 13:10 FiO2 Intake & Output 02/15/25 02/16/25 02/16/25 18:59 06:59 18:59 Intake Total 400 300 Output Total 04011 Balance -62773 300 Intake: Oral 300 Hemodialysis 400 Output: Hemodialysis 5400 Hemodialysis Net Amount 5000 Other: Voiding Method Toilet Toilet Toilet # Voids 2 2 2 - Exam Patient is awake, comfortable, no acute distress Examination of the heart S1 and S2 Examination of the lungs decreased breath sounds bilateral bases Examination of lower extremities shows 1+ 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 - Labs CBC & Chem 7: 02/15/25 04:35 02/15/25 04:35 Labs: Abnormal Lab Results - Last 24 Hours (Table) 02/15/25 02/15/25 02/15/25 Range/Units 14:38 16:27 20:28 POC Glucose (mg/dL) 127 H 124 H (70-110) mg/dL Histone Antibodies 1.9 H (<1.0) UNITS 02/16/25 02/16/25 02/16/25 Range/Units 06:14 11:14 11:29 POC Glucose (mg/dL) 162 H 54 L 60 L (70-110) mg/dL Histone Antibodies (<1.0) UNITS 02/16/25 02/16/25 Range/Units 11:43 11:53 POC Glucose (mg/dL) 57 L 67 L (70-110) mg/dL Histone Antibodies (<1.0) UNITS Microbiology - Last 24 Hours (Table) 02/13/25 21:39 Gram Stain - Final Sputum Sputum Culture - Final 02/12/25 16:55 Blood Culture - Preliminary Blood Assessment and Plan Assessment: 1. End-stage renal disease on hemodialysis on Wednesday schedule 2. Volume overload 3. Uncontrolled hypertension partly volume sensitive, expect improvement with improvement in volume status 4. CKD mineral bone disorder 5. Brittle type 1 diabetes 6. Pericardial effusion mostly related to volume overload however antihistone antibody was positive and patient is maintained on hydralazine therefore this will be discontinued. Plan: Hemodialysis today and in a.m. Continue with PhosLo DC hydralazine. Patient's blood pressure is usually very well-controlled with improvement of volume status.
[2025-02-16 16:30] LABS: Glucose,Whole Blood 163 mg/dL (70-110)
[2025-02-16] MEDS: methylPREDNISolone SOD SUCCI 125 MG/2 ML VIAL IV SCH (17:18)
--- NOTE | 2025-02-16 21:10 | US ---
EXAMINATION TYPE: US venous doppler duplex UE LT DATE OF EXAM: 02/16/2025 Exam done portable COMPARISON: NONE CLINICAL INDICATION: Female, 35 years old with history of Left upper extremity swelling; TECHNIQUE: Grayscale, color Doppler and spectral Doppler imaging of the upper extremity. SIDE PERFORMED: Left VESSELS IMAGED: IJV Subclavian Vein Axilla Vein Brachial Vein(s) Radial Paired Veins Ulnar Paired Veins Cephalic Vein* Basilic Vein* (*superficial vessels) FINDINGS: Left Arm: Appears negative for DVT IMPRESSION: No acute deep venous thrombosis left upper extremity. [facility], , 02/16/2025 9:08 PM
[2025-02-16 21:12] LABS: Glucose,Whole Blood 201 mg/dL (70-110)
--- NOTE | 2025-02-17 02:16 | PN ---
PROGRESS NOTE DATE OF SERVICE: 02/16/2025 SUBJECTIVE: This 35-year-old woman was admitted with CHF acute exacerbation and pericardial effusion. Has anti-histone antibody positive. The patient possibly had drug-induced lupus related to hydralazine at this time. The patient is on and off hydralazine for quite some time according to Dr. Lim. PAST MEDICAL HISTORY: Reviewed. REVIEW OF SYSTEMS: Fourteen-point review of systems negative except as mentioned earlier. CURRENT MEDICATIONS: Reviewed. PHYSICAL EXAMINATION: VITAL SIGNS: Pulse is 72, blood pressure 115/66, and respirations 19. CHEST: Scattered rhonchi and crackles. ABDOMEN: Soft. NERVOUS SYSTEM: Nonfocal. LABORATORY DATA: Reviewed. ASSESSMENT: 1. Acute bilateral pulmonary edema secondary to renal failure. 2. 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 3. Lfwvd-of-zztfabyu pericardial effusion on 2D echo. 4. End-stage renal disease, on hemodialysis. 5. Possible acute bronchitis. 6. Congestive heart failure acute exacerbation. 7. Diabetes mellitus type 2. 8. Hypertension. 9. History of seizures. RECOMMENDATIONS: Recommend to continue current management and continue symptomatic treatment. Otherwise, at this time, I would recommend to stop the hydralazine. CRP is less than 0.5. The patient is not improving. I would recommend a short course of IV steroids at this time. Otherwise, continue with antibiotic. Empiric antibiotics. Closely follow with multiple consultants. Further recommendations to follow. MMLUISL / IJN: [id number] /
[2025-02-17] MEDS: hydrALAZINE HCL 25 MG TAB PO SCH (02:45)
[2025-02-17] MEDS: ONDANSETRON ODT 4 MG TAB PO PRN (05:51)
[2025-02-17 06:46] LABS: Glucose,Whole Blood 476 mg/dL (70-110)
[2025-02-17 09:41] LABS: Glucose,Whole Blood 434 mg/dL (70-110)
--- NOTE | 2025-02-17 11:59 | P.PN ---
Subjective Patient is seen in follow-up for end-stage renal disease. She is maintained on hemodialysis on Wednesday. Denies chest pain or shortness of breath. Complains of swelling in her thighs. Scheduled for dialysis today. Vital signs are stable. General: No acute distress. HEENT: Head exam is unremarkable. On room air. LUNGS: No audible rhonchi or wheezes. HEART: Rate and Rhythm are regular. ABDOMEN: Nontender. EXTREMITITES: 1+ edema. Objective - Vital Signs Vital signs: Vital Signs Temp 97.6 F 02/17/25 07:00 Pulse 84 02/17/25 08:58 Resp 17 02/17/25 08:00 BP 167/83 02/17/25 07:00 Pulse Ox 100 02/17/25 07:00 FiO2 Intake & Output 02/16/25 02/17/25 02/17/25 18:59 06:59 18:59 Intake Total 1000 3300 200 Output Total 8500 Balance -7500 3300 200 Intake: Oral 500 3300 200 Hemodialysis 500 Output: Hemodialysis 4500 Hemodialysis Net Amount 4000 Other: Voiding Method Toilet Toilet Toilet # Voids 2 6 - Labs CBC & Chem 7: 02/15/25 04:35 02/15/25 04:35 Labs: Abnormal Lab Results - Last 24 Hours (Table) 02/16/25 02/16/25 02/16/25 Range/Units 11:53 16:22 21:11 POC Glucose (mg/dL) 67 L 163 H 201 H (70-110) mg/dL 02/17/25 02/17/25 Range/Units 06:44 09:39 POC Glucose (mg/dL) 476 H 434 H (70-110) mg/dL Microbiology - Last 24 Hours (Table) 02/13/25 21:39 Gram Stain - Final Sputum Sputum Culture - Final Assessment and Plan Plan: Assessment: 1. End-stage renal disease maintained on hemodialysis on Wednesday. 2. Hypertension with chronic kidney disease. 3. Volume overload. 4. Chronic kidney disease mineral bone disease maintained on PhosLo. 5. Anemia of chronic kidney disease maintained on Aranesp. 6. Pericardial effusion related to volume overload. Antihistone antibody positive. Hydralazine discontinued. On colchicine. Plan: Hemodialysis today. Challenge UF Patient considering doing outpatient hemodialysis 5 times a week instead of 4.
[2025-02-17 12:18] LABS: Glucose,Whole Blood 518 mg/dL (70-110)
[2025-02-17 12:18] LABS: Glucose,Whole Blood 550 mg/dL (70-110)
[2025-02-17 14:52] LABS: Glucose,Whole Blood 458 mg/dL (70-110)
[2025-02-17] MEDS: INSULIN REGULAR 100 UNIT in SODIUM CHLORIDE 0.9% 100 ML IV SCH (15:27)
[2025-02-17 16:11] LABS: Glucose,Whole Blood 396 mg/dL (70-110)
[2025-02-17 18:01] LABS: Glucose,Whole Blood 321 mg/dL (70-110)
[2025-02-17 18:06] LABS: Glucose,Whole Blood 335 mg/dL (70-110)
[2025-02-17 19:04] LABS: Glucose,Whole Blood 255 mg/dL (70-110)
[2025-02-17 20:11] LABS: Glucose,Whole Blood 224 mg/dL (70-110)
[2025-02-17 21:00] LABS: Glucose,Whole Blood 169 mg/dL (70-110)
[2025-02-17 21:57] LABS: ALT 331 U/L (4-34); AST 298 U/L (14-36); African American GFR (CKD) 28 (>60 ml/min/1.73 sqM); Albumin 4.2 g/dL (3.5-5.0); Alkaline Phosphatase 335 U/L (38-126); Anion Gap 13 mmol/L; Blood Urea Nitrogen 31 mg/dL (7-17); Calcium 9.7 mg/dL (8.4-10.2); Carbon Dioxide 28 mmol/L (22-30); Chloride 93 mmol/L (98-107); Glucose 150 mg/dL (74-99); Non-African American GFR(CKD) 24 (>60 ml/min/1.73 sqM); Potassium 4.5 mmol/L (3.5-5.1); Sodium 134 mmol/L (137-145); Total Bilirubin 0.5 mg/dL (0.2-1.3); Total Protein 6.9 g/dL (6.3-8.2)
[2025-02-17 22:05] LABS: Glucose,Whole Blood 167 mg/dL (70-110)
[2025-02-17 23:07] LABS: Glucose,Whole Blood 106 mg/dL (70-110)
[2025-02-18 00:05] LABS: Glucose,Whole Blood 111 mg/dL (70-110)
[2025-02-18 00:56] LABS: Glucose,Whole Blood 82 mg/dL (70-110)
[2025-02-18 01:58] LABS: Glucose,Whole Blood 125 mg/dL (70-110)
[2025-02-18 02:54] LABS: Glucose,Whole Blood 146 mg/dL (70-110)
--- NOTE | 2025-02-18 03:19 | PN ---
PROGRESS NOTE DATE OF SERVICE: 02/17/2025 SUBJECTIVE: This is a 35-year-old woman, who was admitted with CHF with acute exacerbation and pericardial effusion, possibly had drug-induced lupus with positive anti-histone antibodies related to hydralazine. No chest pain. No palpitation. The patient is a hemodialysis patient, is noncompliant with drinking water and had a massive intake of fluids per nurse's charting and computer. PAST MEDICAL HISTORY: Reviewed. REVIEW OF SYSTEMS: Fourteen-point review of systems negative except as mentioned earlier. CURRENT MEDICATIONS: Reviewed. PHYSICAL EXAMINATION: VITAL SIGNS: Pulse is 88, blood pressure 161/83, respirations 17. CHEST: A few scattered rhonchi and crackles. ABDOMEN: Soft. NERVOUS SYSTEM: Nonfocal. LABORATORY DATA: Glucose elevated up to 550. ASSESSMENT: 1. Acute bilateral pulmonary edema, secondary to renal failure and congestive heart failure exacerbation. 2. 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 3. Dutwy-nt-ndgmhbbe pericardial effusion in the 2D echo previously. 4. End-stage renal disease, on hemodialysis. 5. Possible acute bronchitis. 6. Congestive heart failure with acute exacerbation. 7. Diabetes mellitus type 2. 8. Hypertension. 9. History of seizures. RECOMMENDATIONS AND DISCUSSION: Recommended to continue with current medications, continue with symptomatic treatment. Otherwise, I would recommend to continue with empiric IV steroids, and also, I would recommend to continue with empiric antibiotics and IV insulin drip to control the blood sugars. Guarded prognosis because of multiple complex medical issues. Further recommendations to follow. We will taper the steroids further. MMODL / IJN: [id number] /
[2025-02-18 04:06] LABS: Glucose,Whole Blood 227 mg/dL (70-110)
[2025-02-18 05:00] LABS: Glucose,Whole Blood 225 mg/dL (70-110)
[2025-02-18 05:58] LABS: Glucose,Whole Blood 198 mg/dL (70-110)
[2025-02-18 07:01] LABS: Glucose,Whole Blood 207 mg/dL (70-110)
[2025-02-18 08:01] LABS: Glucose,Whole Blood 191 mg/dL (70-110)
[2025-02-18 08:32] LABS: Anisocytosis Slight; Basophils # (A) 0.1 k/uL (0-0.2); Basophils % (A) 1 %; Eosinophils % (A) 0 %; HCT 32.1 % (34.0-46.0); HGB 9.6 gm/dL (11.4-16.0); Hypochromasia Slight; Lymphocytes # (A) 0.5 k/uL (1.0-4.8); Lymphocytes % (A) 5 %; MCH 30.7 pg (25.0-35.0); MCHC 29.9 g/dL (31.0-37.0); MCV 102.6 fL (80.0-100.0); Macrocytosis Moderate; Mean Platelet Volume 8.4; Monocytes # (A) 0.4 k/uL (0-1.0); Monocytes % (A) 5 %; Neutrophils # (A) 7.7 k/uL (1.3-7.7); Neutrophils % (A) 88 %; Platelet Count 305 k/uL (150-450); RBC 3.13 m/uL (3.80-5.40); RDW 16.8 % (11.5-15.5); WBC 8.8 k/uL (3.8-10.6)
[2025-02-18 08:43] LABS: ALT 316 U/L (4-34); AST 245 U/L (14-36); African American GFR (CKD) 21 (>60 ml/min/1.73 sqM); Albumin 4.4 g/dL (3.5-5.0); Alkaline Phosphatase 313 U/L (38-126); Anion Gap 12 mmol/L; Blood Urea Nitrogen 44 mg/dL (7-17); Calcium 9.7 mg/dL (8.4-10.2); Carbon Dioxide 28 mmol/L (22-30); Chloride 94 mmol/L (98-107); Glucose 184 mg/dL (74-99); Non-African American GFR(CKD) 18 (>60 ml/min/1.73 sqM); Potassium 5.3 mmol/L (3.5-5.1); Sodium 134 mmol/L (137-145); Total Bilirubin 0.7 mg/dL (0.2-1.3)
[2025-02-18 09:10] LABS: Glucose,Whole Blood 169 mg/dL (70-110)
[2025-02-18 10:05] LABS: Glucose,Whole Blood 194 mg/dL (70-110)
--- NOTE | 2025-02-18 10:50 | P.PN ---
Subjective Patient is seen in follow-up for end-stage renal disease. She is maintained on hemodialysis on Wednesday. Denies chest pain or shortness of breath. Still has edema in lower extremities. Tolerated 4 L ultrafiltration yesterday. Vital signs are stable. General: No acute distress. HEENT: Head exam is unremarkable. On room air. LUNGS: No audible rhonchi or wheezes. HEART: Rate and Rhythm are regular. ABDOMEN: Nontender. EXTREMITITES: 2+ edema. Objective - Vital Signs Vital signs: Vital Signs Temp 97.8 F 02/18/25 08:00 Pulse 81 02/18/25 08:00 Resp 18 02/18/25 08:00 BP 172/94 02/18/25 08:00 Pulse Ox 99 02/18/25 08:00 FiO2 Intake & Output 02/17/25 02/18/25 02/18/25 18:59 06:59 18:59 Intake Total 221.205 78.510 20.172 Balance 221.205 78.510 20.172 Weight 77.3 kg Intake: Intake, IV Titration 21.205 78.510 20.172 Amount Insulin Regular 100 unit 21.205 78.510 20.172 In Sodium Chloride 0.9% 100 ml @ Titrate IV .Q0M [facility] Rx#:[id number] Oral 200 Other: Voiding Method Toilet Toilet Toilet # Voids 4 1 - Labs CBC & Chem 7: 02/18/25 08:05 02/18/25 08:05 Labs: Abnormal Lab Results - Last 24 Hours (Table) 02/17/25 02/17/25 02/17/25 Range/Units 12:13 12:14 14:50 RBC (3.80-5.40) m/uL Hgb (11.4-16.0) gm/dL Hct (34.0-46.0) % MCV (80.0-100.0) fL MCHC (31.0-37.0) g/dL RDW (11.5-15.5) % Lymphocytes # (1.0-4.8) k/uL Sodium (137-145) mmol/L Potassium (3.5-5.1) mmol/L Chloride (98-107) mmol/L BUN (7-17) mg/dL Creatinine (0.52-1.04) mg/dL Glucose (74-99) mg/dL POC Glucose (mg/dL) 518 H* 550 H* 458 H (70-110) mg/dL AST (14-36) U/L ALT (4-34) U/L Alkaline Phosphatase (38-126) U/L 02/17/25 02/17/25 02/17/25 Range/Units 16:10 17:07 18:05 RBC (3.80-5.40) m/uL Hgb (11.4-16.0) gm/dL Hct (34.0-46.0) % MCV (80.0-100.0) fL MCHC (31.0-37.0) g/dL RDW (11.5-15.5) % Lymphocytes # (1.0-4.8) k/uL Sodium (137-145) mmol/L Potassium (3.5-5.1) mmol/L Chloride (98-107) mmol/L BUN (7-17) mg/dL Creatinine (0.52-1.04) mg/dL Glucose (74-99) mg/dL POC Glucose (mg/dL) 396 H 321 H 335 H (70-110) mg/dL AST (14-36) U/L ALT (4-34) U/L Alkaline Phosphatase (38-126) U/L 02/17/25 02/17/25 02/17/25 Range/Units 19:01 20:10 20:58 RBC (3.80-5.40) m/uL Hgb (11.4-16.0) gm/dL Hct (34.0-46.0) % MCV (80.0-100.0) fL MCHC (31.0-37.0) g/dL RDW (11.5-15.5) % Lymphocytes # (1.0-4.8) k/uL Sodium (137-145) mmol/L Potassium (3.5-5.1) mmol/L Chloride (98-107) mmol/L BUN (7-17) mg/dL Creatinine (0.52-1.04) mg/dL Glucose (74-99) mg/dL POC Glucose (mg/dL) 255 H 224 H 169 H (70-110) mg/dL AST (14-36) U/L ALT (4-34) U/L Alkaline Phosphatase (38-126) U/L 02/17/25 02/17/25 02/18/25 Range/Units 21:06 22:04 00:03 RBC (3.80-5.40) m/uL Hgb (11.4-16.0) gm/dL Hct (34.0-46.0) % MCV (80.0-100.0) fL MCHC (31.0-37.0) g/dL RDW (11.5-15.5) % Lymphocytes # (1.0-4.8) k/uL Sodium 134 L (137-145) mmol/L Potassium (3.5-5.1) mmol/L Chloride 93 L (98-107) mmol/L BUN 31 H (7-17) mg/dL Creatinine 2.52 H (0.52-1.04) mg/dL Glucose 150 H (74-99) mg/dL POC Glucose (mg/dL) 167 H 111 H (70-110) mg/dL AST 298 H (14-36) U/L ALT 331 H (4-34) U/L Alkaline Phosphatase 335 H (38-126) U/L 02/18/25 02/18/25 02/18/25 Range/Units 01:56 02:52 04:01 RBC (3.80-5.40) m/uL Hgb (11.4-16.0) gm/dL Hct (34.0-46.0) % MCV (80.0-100.0) fL MCHC (31.0-37.0) g/dL RDW (11.5-15.5) % Lymphocytes # (1.0-4.8) k/uL Sodium (137-145) mmol/L Potassium (3.5-5.1) mmol/L Chloride (98-107) mmol/L BUN (7-17) mg/dL Creatinine (0.52-1.04) mg/dL Glucose (74-99) mg/dL POC Glucose (mg/dL) 125 H 146 H 227 H (70-110) mg/dL AST (14-36) U/L ALT (4-34) U/L Alkaline Phosphatase (38-126) U/L 02/18/25 02/18/2525 Range/Units 04:58 05:54 06:58 RBC (3.80-5.40) m/uL Hgb (11.4-16.0) gm/dL Hct (34.0-46.0) % MCV (80.0-100.0) fL MCHC (31.0-37.0) g/dL RDW (11.5-15.5) % Lymphocytes # (1.0-4.8) k/uL Sodium (137-145) mmol/L Potassium (3.5-5.1) mmol/L Chloride (98-107) mmol/L BUN (7-17) mg/dL Creatinine (0.52-1.04) mg/dL Glucose (74-99) mg/dL POC Glucose (mg/dL) 225 H 198 H 207 H (70-110) mg/dL AST (14-36) U/L ALT (4-34) U/L Alkaline Phosphatase (38-126) U/L 02/18/25 02/18/25 02/18/25 Range/Units 08:00 08:05 08:05 RBC 3.13 L (3.80-5.40) m/uL Hgb 9.6 L (11.4-16.0) gm/dL Hct 32.1 L (34.0-46.0) % MCV 102.6 H (80.0-100.0) fL MCHC 29.9 L (31.0-37.0) g/dL RDW 16.8 H (11.5-15.5) % Lymphocytes # 0.5 L (1.0-4.8) k/uL Sodium 134 L (137-145) mmol/L Potassium 5.3 H (3.5-5.1) mmol/L Chloride 94 L (98-107) mmol/L BUN 44 H (7-17) mg/dL Creatinine 3.19 H (0.52-1.04) mg/dL Glucose 184 H (74-99) mg/dL POC Glucose (mg/dL) 191 H (70-110) mg/dL AST 245 H (14-36) U/L ALT 316 H (4-34) U/L Alkaline Phosphatase 313 H (38-126) U/L 02/18/25 02/18/25 Range/Units 09:08 10:04 RBC (3.80-5.40) m/uL Hgb (11.4-16.0) gm/dL Hct (34.0-46.0) % MCV (80.0-100.0) fL MCHC (31.0-37.0) g/dL RDW (11.5-15.5) % Lymphocytes # (1.0-4.8) k/uL Sodium (137-145) mmol/L Potassium (3.5-5.1) mmol/L Chloride (98-107) mmol/L BUN (7-17) mg/dL Creatinine (0.52-1.04) mg/dL Glucose (74-99) mg/dL POC Glucose (mg/dL) 169 H 194 H (70-110) mg/dL AST (14-36) U/L ALT (4-34) U/L Alkaline Phosphatase (38-126) U/L Microbiology - Last 24 Hours (Table) 02/12/25 16:55 Blood Culture - Final Blood Assessment and Plan Plan: Assessment: 1. End-stage renal disease maintained on hemodialysis on Wednesday. 2. Hypertension with chronic kidney disease. Exacerbated by steroids. 3. Volume overload. 4. Chronic kidney disease mineral bone disease maintained on PhosLo. 5. Anemia of chronic kidney disease maintained on Aranesp. 6. Pericardial effusion related to volume overload. Antihistone antibody positive. Hydralazine discontinued. On colchicine. Plan: Hemodialysis tomorrow. Challenge ultrafiltration. Patient considering doing outpatient hemodialysis 5 times a week instead of 4.
[2025-02-18 11:16] LABS: Glucose,Whole Blood 180 mg/dL (70-110)
[2025-02-18 12:07] LABS: Glucose,Whole Blood 181 mg/dL (70-110)
[2025-02-18 13:09] LABS: Glucose,Whole Blood 193 mg/dL (70-110)
[2025-02-18 14:15] LABS: Glucose,Whole Blood 223 mg/dL (70-110)
--- NOTE | 2025-02-18 14:35 | US ---
EXAMINATION TYPE: US venous doppler duplex LE RT DATE OF EXAM: 02/18/2025 2:27 PM COMPARISON: Previous study of 02/16/2025. CLINICAL INDICATION: Female, 35 years old with history of swelling; On dialysis; Whole body swelling with right knee pain , Pain TECHNIQUE: The lower extremity deep venous system is examined utilizing real time linear array sonog ruma with graded compression, color doppler sonography, and spectral doppler. SIDE PERFORMED: Bilateral FINDINGS: VESSELS IMAGED: Common Femoral Vein Deep Femoral Vein Greater Saphenous Vein * Femoral Vein Popliteal Vein Small Saphenous Vein * Proximal Calf Veins (* superficial vessels) Right Leg: Negative for DVT, Color Doppler imaging shows patency of the vessels. Spectral waveforms are within normal limits. IMPRESSION: No ultrasound evidence for deep venous thrombosis. [facility], , 02/18/2025 2:32 PM
--- NOTE | 2025-02-18 14:48 | P.GSCN ---
History of Present Illness Consult date: 02/18/25 Reason for Consult: Left upper extremity swelling History of present illness: 35-year-old female with history of left upper extremity loop arteriovenous graft creation presented to the hospital with complaints of left upper extremity swelling and pain. She states that she has had tense forearm for the last several days without any numbness or tingling in her fingers. She denies any fevers, chills, chest pain or shortness of breath. 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 Past Anesthesia/Blood Transfusion Reactions: Previous Problems w/ Anesthesia Additional Past Anesthesia/Blood Transfusion Reaction / Comm: confusion Past Psychological History: Anxiety, Depression Smoking Status: Current every day smoker Past Alcohol Use History: None Reported Additional Past Alcohol Use History / Comment(s): smokes a half PPD Past Drug Use History: Marijuana Additional Drug Use History / Comment(s): Patient states, "I haven't smoke ma rijauna in months." - Past Family History Father History Unknown: Yes Family Medical History: Unable to Obtain Mother History Unknown: Yes Family Medical History: No Reported History Grandfather History Unknown: Yes Family Medical History: Coronary Artery Disease (CAD) Additional Family Medical History / Comment(s): Diabetes mellitus type 2 Medications and Allergies Home Medications Medication Instructions Recorded Confirmed Type Docusate [Colace] 100 mg PO DAILY@0800 02/05/24 02/12/25 History Lidocaine 4% Patch 1 patch TOPICAL DAILY@0800 02/05/24 02/12/25 History Magnesium Hydroxide [Milk of 7,200 mg PO DAILY PRN 02/05/24 02/12/25 History Magnesia Concentrate] Ipratropium-Albuterol Nebulize 3 ml INHALATION RT-TID PRN each 02/14/24 02/12/25 Rx [Duoneb 0.5 mg-3 mg/3 ml Soln] polyethylene glycoL 3350 [Miralax] 17 gm PO AC-LUNCH #527 gm 02/14/24 02/12/25 Rx Acetaminophen [Tylenol] 650 mg PO Q4H PRN 02/18/24 02/12/25 History Biotene Dry Mouth/Throat 10 ml PO BID PRN 02/18/24 02/12/25 History Melatonin 1 mg PO HS tab 02/25/24 02/12/25 Rx Darbepoetin Artur [Aranesp] 40 mcg SQ MO 03/14/24 02/12/25 History Loratadine [Claritin] 5 mg PO DAILY tab 03/30/24 02/12/25 Rx Aspirin 81 mg PO DAILY@0800 #30 tab 05/18/24 02/12/25 Rx Famotidine [Pepcid] 20 mg PO BID #60 tab 07/11/24 02/12/25 Rx Levothyroxine Sodium [Synthroid] 175 mcg PO DAILY@0608/14/24 02/12/25 History Metoclopramide [Reglan] 5 mg PO AC-TID PRN 08/14/24 02/12/25 History Pantoprazole [Protonix] 40 mg PO DAILY@0608/14/24 02/12/25 History Sertraline [Zoloft] 200 mg PO DAILY@0800 08/14/24 02/12/25 History ALPRAZolam [Xanax] 0.25 mg PO BID PRN 09/04/24 02/12/25 History Calcium Acetate [PhosLo] 667 mg PO DAILY PRN 09/04/24 02/12/25 History Colchicine [Colcrys] 0.3 mg PO DAILY #15 each 09/23/24 02/12/25 Rx Ondansetron Odt [Zofran ODT] 4 mg PO Q8HR PRN 11/02/24 02/12/25 History Atorvastatin [Lipitor] 40 mg PO HS #0 11/23/24 02/12/25 Rx oxyCODONE-APAP 10-325MG [Percocet 1 tab PO Q4HR PRN #18 tab 11/23/24 02/12/25 Rx 10-325 mg] Folic Acid/Vit B Complex and C 0.8 mg PO DAILY 12/20/24 02/12/25 History [Davina-Mayte Tablet] hydrALAZINE HCL [Apresoline] 100 mg PO TID 30 Days #90 tab 01/01/25 02/12/25 Rx traZODone HCL [Desyrel] 50 mg PO HS #20 tab 01/01/25 02/12/25 Rx Divalproex ER [Depakote ER] 500 mg PO BID@0800,1700 #60 tab 01/02/25 02/12/25 Rx Isosorbide Mononitrate ER [Imdur] 120 mg PO DAILY #60 tab 01/02/25 02/12/25 Rx NIFEdipine XL [Procardia XL] 60 mg PO BID 30 Days #60 tab 01/02/25 02/12/25 Rx Gabapentin [Neurontin] 100 mg PO BID 30 Days #60 cap 01/03/25 02/12/25 Rx Linagliptin [Tradjenta] 5 mg PO DAILY #30 tab 01/03/25 02/12/25 Rx Insulin Lispro [humaLOG Kwikpen] 8 unit SQ AC-TID 01/22/25 02/12/25 History Insulin Lispro [humaLOG Kwikpen] See Protocol SQ AC-TID 01/22/25 02/12/25 History cloNIDine HCL [Catapres] 0.3 mg PO TID 01/22/25 02/12/25 History Butalb/APAP/Caff 50-325-40Mg 1 tab PO Q4HR PRN #12 tab 01/26/25 02/12/25 Rx [Fioricet 50-325-40] Insulin Glargine (Lantus) [Lantus 12 unit SQ BID@0700,2100 02/12/25 02/12/25 History Vial] carvediloL [Coreg] 50 mg PO BID #120 tablet 02/15/25 Rx Allergies Allergy/AdvReac Type Severity Reaction Status Date / Time hydromorphone HCl Allergy Anaphylaxis Verified 02/12/25 14:53 [From Dilaudid] propoxyphene Allergy Rash/Hives Verified 02/12/25 14:53 [From Darvocet-N] tramadol Allergy Anaphylaxis Verified 02/12/25 14:53 ibuprofen [From Motrin] AdvReac unable to Verified 02/12/25 14:53 take due to kidney disease venom-honey bee AdvReac passes out Verified 02/12/25 14:53 [bee venom (honey bee)] Surgical - Exam Vital Signs Temp Pulse Resp BP Pulse Ox 98 F 82 20 151/94 96 02/12/25 12:03 02/12/25 12:03 02/12/25 12:03 02/12/25 12:03 02/12/25 12:03 Patient Seen Date: 02/18/25 Patient Seen Time: 14:00 - General well developed, well nourished, no distress - Eyes PERRL, normal ocular movement - Neck no masses - Respiratory normal expansion, normal respiratory effort - Cardiovascular Rhythm: regular - Abdomen Abdomen: soft, non tender - Psychiatric oriented to time, oriented to person, oriented to place, speech is normal Left upper extremity with palpable thrill at the loop graft. Tense forearm with mild tenderness to palpation. No motor deficit. Results - Labs 02/18/25 08:05 02/18/25 08:05 Abnormal Lab Results - Last 24 Hours (Table) 02/17/25 02/17/25 02/17/25 Range/Units 14:50 16:10 17:07 RBC (3.80-5.40) m/uL Hgb (11.4-16.0) gm/dL Hct (34.0-46.0) % MCV (80.0-100.0) fL MCHC (31.0-37.0) g/dL RDW (11.5-15.5) % Lymphocytes # (1.0-4.8) k/uL Sodium (137-145) mmol/L Potassium (3.5-5.1) mmol/L Chloride (98-107) mmol/L BUN (7-17) mg/dL Creatinine (0.52-1.04) mg/dL Glucose (74-99) mg/dL POC Glucose (mg/dL) 458 H 396 H 321 H (70-110) mg/dL AST (14-36) U/L ALT (4-34) U/L Alkaline Phosphatase (38-126) U/L 02/17/25 02/17/25 02/17/25 Range/Units 18:05 19:01 20:10 RBC (3.80-5.40) m/uL Hgb (11.4-16.0) gm/dL Hct (34.0-46.0) % MCV (80.0-100.0) fL MCHC (31.0-37.0) g/dL RDW (11.5-15.5) % Lymphocytes # (1.0-4.8) k/uL Sodium (137-145) mmol/L Potassium (3.5-5.1) mmol/L Chloride (98-107) mmol/L BUN (7-17) mg/dL Creatinine (0.52-1.04) mg/dL Glucose (74-99) mg/dL POC Glucose (mg/dL) 335 H 255 H 224 H (70-110) mg/dL AST (14-36) U/L ALT (4-34) U/L Alkaline Phosphatase (38-126) U/L 02/17/25 02/17/25 02/17/25 Range/Units 20:58 21:06 22:04 RBC (3.80-5.40) m/uL Hgb (11.4-16.0) gm/dL Hct (34.0-46.0) % MCV (80.0-100.0) fL MCHC (31.0-37.0) g/dL RDW (11.5-15.5) % Lymphocytes # (1.0-4.8) k/uL Sodium 134 L (137-145) mmol/L Potassium (3.5-5.1) mmol/L Chloride 93 L (98-107) mmol/L BUN 31 H (7-17) mg/dL Creatinine 2.52 H (0.52-1.04) mg/dL Glucose 150 H (74-99) mg/dL POC Glucose (mg/dL) 169 H 167 H (70-110) mg/dL AST 298 H (14-36) U/L ALT 331 H (4-34) U/L Alkaline Phosphatase 335 H (38-126) U/L 02/18/25 02/18/25 02/18/25 Range/Units 00:03 01:56 02:52 RBC (3.80-5.40) m/uL Hgb (11.4-16.0) gm/dL Hct (34.0-46.0) % MCV (80.0-100.0) fL MCHC (31.0-37.0) g/dL RDW (11.5-15.5) % Lymphocytes # (1.0-4.8) k/uL Sodium (137-145) mmol/L Potassium (3.5-5.1) mmol/L Chloride (98-107) mmol/L BUN (7-17) mg/dL Creatinine (0.52-1.04) mg/dL Glucose (74-99) mg/dL POC Glucose (mg/dL) 111 H 125 H 146 H (70-110) mg/dL AST (14-36) U/L ALT (4-34) U/L Alkaline Phosphatase (38-126) U/L 02/18/25 02/18/25 02/18/25 Range/Units 04:01 04:58 05:54 RBC (3.80-5.40) m/uL Hgb (11.4-16.0) gm/dL Hct (34.0-46.0) % MCV (80.0-100.0) fL MCHC (31.0-37.0) g/dL RDW (11.5-15.5) % Lymphocytes # (1.0-4.8) k/uL Sodium (137-145) mmol/L Potassium (3.5-5.1) mmol/L Chloride (98-107) mmol/L BUN (7-17) mg/dL Creatinine (0.52-1.04) mg/dL Glucose (74-99) mg/dL POC Glucose (mg/dL) 227 H 225 H 198 H (70-110) mg/dL AST (14-36) U/L ALT (4-34) U/L Alkaline Phosphatase (38-126) U/L 02/18/25 02/18/25 02/18/25 Range/Units 06:58 08:00 08:05 RBC 3.13 L (3.80-5.40) m/uL Hgb 9.6 L (11.4-16.0) gm/dL Hct 32.1 L (34.0-46.0) % MCV 102.6 H (80.0-100.0) fL MCHC 29.9 L (31.0-37.0) g/dL RDW 16.8 H (11.5-15.5) % Lymphocytes # 0.5 L (1.0-4.8) k/uL Sodium (137-145) mmol/L Potassium (3.5-5.1) mmol/L Chloride (98-107) mmol/L BUN (7-17) mg/dL Creatinine (0.52-1.04) mg/dL Glucose (74-99) mg/dL POC Glucose (mg/dL) 207 H 191 H (70-110) mg/dL AST (14-36) U/L ALT (4-34) U/L Alkaline Phosphatase (38-126) U/L 02/18/25 02/18/25 02/18/25 Range/Units 08:05 09:08 10:04 RBC (3.80-5.40) m/uL Hgb (11.4-16.0) gm/dL Hct (34.0-46.0) % MCV (80.0-100.0) fL MCHC (31.0-37.0) g/dL RDW (11.5-15.5) % Lymphocytes # (1.0-4.8) k/uL Sodium 134 L (137-145) mmol/L Potassium 5.3 H (3.5-5.1) mmol/L Chloride 94 L (98-107) mmol/L BUN 44 H (7-17) mg/dL Creatinine 3.19 H (0.52-1.04) mg/dL Glucose 184 H (74-99) mg/dL POC Glucose (mg/dL) 169 H 194 H (70-110) mg/dL AST 245 H (14-36) U/L ALT 316 H (4-34) U/L Alkaline Phosphatase 313 H (38-126) U/L 02/18/25 02/18/25 02/18/25 Range/Units 11:14 12:06 13:08 RBC (3.80-5.40) m/uL Hgb (11.4-16.0) gm/dL Hct (34.0-46.0) % MCV (80.0-100.0) fL MCHC (31.0-37.0) g/dL RDW (11.5-15.5) % Lymphocytes # (1.0-4.8) k/uL Sodium (137-145) mmol/L Potassium (3.5-5.1) mmol/L Chloride (98-107) mmol/L BUN (7-17) mg/dL Creatinine (0.52-1.04) mg/dL Glucose (74-99) mg/dL POC Glucose (mg/dL) 180 H 181 H 193 H (70-110) mg/dL AST (14-36) U/L ALT (4-34) U/L Alkaline Phosphatase (38-126) U/L 02/18/25 Range/Units 14:12 RBC (3.80-5.40) m/uL Hgb (11.4-16.0) gm/dL Hct (34.0-46.0) % MCV (80.0-100.0) fL MCHC (31.0-37.0) g/dL RDW (11.5-15.5) % Lymphocytes # (1.0-4.8) k/uL Sodium (137-145) mmol/L Potassium (3.5-5.1) mmol/L Chloride (98-107) mmol/L BUN (7-17) mg/dL Creatinine (0.52-1.04) mg/dL Glucose (74-99) mg/dL POC Glucose (mg/dL) 223 H (70-110) mg/dL AST (14-36) U/L ALT (4-34) U/L Alkaline Phosphatase (38-126) U/L Microbiology - Last 24 Hours (Table) 02/12/25 16:55 Blood Culture - Final Blood Diabetes panel 02/17/25 02/18/25 Range/Units 21:06 08:05 Sodium 134 L 134 L (137-145) mmol/L Potassium 4.5 5.3 H (3.5-5.1) mmol/L Chloride 93 L 94 L (98-107) mmol/L Carbon Dioxide 28 28 (22-30) mmol/L BUN 31 H 44 H (7-17) mg/dL Creatinine 2.52 H 3.19 H (0.52-1.04) mg/dL Glucose 150 H 184 H (74-99) mg/dL Calcium 9.7 9.7 (8.4-10.2) mg/dL AST 298 H 245 H (14-36) U/L ALT 331 H 316 H (4-34) U/L Alkaline Phosphatase 335 H 313 H (38-126) U/L Total Protein 6.9 7.0 (6.3-8.2) g/dL Albumin 4.2 4.4 (3.5-5.0) g/dL Calcium panel 02/17/25 02/18/25 Range/Units 21:06 08:05 Calcium 9.7 9.7 (8.4-10.2) mg/dL Albumin 4.2 4.4 (3.5-5.0) g/dL Pituitary panel 02/17/25 02/18/25 Range/Units 21:06 08:05 Sodium 134 L 134 L (137-145) mmol/L Potassium 4.5 5.3 H (3.5-5.1) mmol/L Chloride 93 L 94 L (98-107) mmol/L Carbon Dioxide 28 28 (22-30) mmol/L BUN 31 H 44 H (7-17) mg/dL Creatinine 2.52 H 3.19 H (0.52-1.04) mg/dL Glucose 150 H 184 H (74-99) mg/dL Calcium 9.7 9.7 (8.4-10.2) mg/dL Adrenal panel 02/17/25 02/18/25 Range/Units 21:06 08:05 Sodium 134 L 134 L (137-145) mmol/L Potassium 4.5 5.3 H (3.5-5.1) mmol/L Chloride 93 L 94 L (98-107) mmol/L Carbon Dioxide 28 28 (22-30) mmol/L BUN 31 H 44 H (7-17) mg/dL Creatinine 2.52 H 3.19 H (0.52-1.04) mg/dL Glucose 150 H 184 H (74-99) mg/dL Calcium 9.7 9.7 (8.4-10.2) mg/dL Total Bilirubin 0.5 0.7 (0.2-1.3) mg/dL AST 298 H 245 H (14-36) U/L ALT 331 H 316 H (4-34) U/L Alkaline Phosphatase 335 H 313 H (38-126) U/L Total Protein 6.9 7.0 (6.3-8.2) g/dL Albumin 4.2 4.4 (3.5-5.0) g/dL Assessment and Plan Assessment: End-stage renal disease Left upper extremity swelling History of left upper extremity loop AV graft Plan: No surgical intervention required at this time. Elevate left upper extremity. Continue pain control. Thank you for the consultation.
[2025-02-18] MEDS: INSULIN GLARGINE (LANTUS) 100 UNIT/ML SYR SQ STA (14:55)
[2025-02-18 15:01] LABS: Glucose,Whole Blood 220 mg/dL (70-110)
[2025-02-18 16:12] LABS: Glucose,Whole Blood 225 mg/dL (70-110)
[2025-02-18] MEDS: INSULIN LISPRO (HumaLOG) 100 UNIT/ML 10 mL VL SQ SCH (16:40)
[2025-02-18 20:10] LABS: Glucose,Whole Blood 280 mg/dL (70-110)
[2025-02-18] MEDS: INSULIN GLARGINE (LANTUS) 100 UNIT/ML SYR SQ SCH (20:53)
--- NOTE | 2025-02-18 23:06 | P.CONS ---
History of Present Illness - Reason for Consult Consult date: 02/18/25 Left arm phlebitis Requesting physician: Dahiana Chan - Chief Complaint Left arm pain and swelling x days - History of Present Illness Patient is a 35-year-old female with a past medical history significant for diabetes mellitus reflux hypertension seizure disorder end-stage renal disease on dialysis with a left arm fistula presenting to the hospital about a week ago for evaluation of difficulty in breathing as well as increasing edema and shortness of breath patient has been evaluated by cardiology nephrology and admitting team on presentation to the hospital patient was afebrile and no fever has been recorded during this hospital stay patient was not tachycardic or hypotensive not hypoxic no need for supplemental oxygen patient did have a white count of 8.8. Creatinine has been elevated liver enzymes are elevated influenza RSV COVID testing was negative patient did have chest x-ray on admission pulmonary vascular congestion did have CT of the chest pulmonary vascular congestion ascites cardiomegaly pericardial effusion trace bilateral effusion superimposed airspace disease not excluded patient was also complaining of pain to the left lower extremity with associated swelling. Pain has been getting worse for the last few days has been describing pain to be sharp moderate intensity without radiation she did have swelling but no redness did not have report of wound or any drainage patient did have Doppler ultrasound that was negative for DVT infectious was consulted consulted for left arm phlebitis and need for antibiotic therapy Review of Systems Positive point and negatives has been mentioned in the HPI, complete review of systems was performed and all other systems are negative Past Medical History Past Medical History: Diabetes Mellitus, GERD/Reflux, Hypertension, Renal Disease, Seizure Disorder, Thyroid Disorder Additional Past Medical History / Comment(s): Neuropathy, last seizure 2020, gastroparesis, headaches with dialysis, states "fast heart rate" since giving ., receives Hemodialysis Wednesday- and Saturdays at [facility] right chest hemodialysis catheter., severe HTN, hx of c-diff 2013., 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 Past Anesthesia/Blood Transfusion Reactions: Previous Problems w/ Anesthesia Additional Past Anesthesia/Blood Transfusion Reaction / Comm: confusion Past Psychological History: Anxiety, Depression Smoking Status: Current every day smoker Past Alcohol Use History: None Reported Additional Past Alcohol Use History / Comment(s): smokes a half PPD Past Drug Use History: Marijuana Additional Drug Use History / Comment(s): Patient states, "I haven't smoke marijauna in months." - Past Family History Father History Unknown: Yes Family Medical History: Unable to Obtain Mother History Unknown: Yes Family Medical History: No Reported History Grandfather History Unknown: Yes Family Medical History: Coronary Artery Disease (CAD) Additional Family Medical History / Comment(s): Diabetes mellitus type 2 Medications and Allergies Home Medications Medication Instructions Recorded Confirmed Type Docusate [Colace] 100 mg PO DAILY@0800 02/05/24 02/12/25 History Lidocaine 4% Patch 1 patch TOPICAL DAILY@0800 02/05/24 02/12/25 History Magnesium Hydroxide [Milk of 7,200 mg PO DAILY PRN 02/05/24 02/12/25 History Magnesia Concentrate] Ipratropium-Albuterol Nebulize 3 ml INHALATION RT-TID PRN each 02/14/24 02/12/25 Rx [Duoneb 0.5 mg-3 mg/3 ml Soln] polyethylene glycoL 3350 [Miralax] 17 gm PO AC-LUNCH #527 gm 02/14/24 02/12/25 Rx Acetaminophen [Tylenol] 650 mg PO Q4H PRN 02/18/24 02/12/25 History Biotene Dry Mouth/Throat 10 ml PO BID PRN 02/18/24 02/12/25 History Melatonin 1 mg PO HS tab 02/25/24 02/12/25 Rx Darbepoetin Artur [Aranesp] 40 mcg SQ MO 03/14/24 02/12/25 History Loratadine [Claritin] 5 mg PO DAILY tab 03/30/24 02/12/25 Rx Aspirin 81 mg PO DAILY@0800 #30 tab 05/18/24 02/12/25 Rx Famotidine [Pepcid] 20 mg PO BID #60 tab 07/11/24 02/12/25 Rx Levothyroxine Sodium [Synthroid] 175 mcg PO DAILY@0600 08/14/24 02/12/25 History Metoclopramide [Reglan] 5 mg PO AC-TID PRN 08/14/24 02/12/25 History Pantoprazole [Protonix] 40 mg PO DAILY@0600 08/14/24 02/12/25 History Sertraline [Zoloft] 200 mg PO DAILY@0800 08/14/24 02/12/25 History ALPRAZolam [Xanax] 0.25 mg PO BID PRN 09/04/24 02/12/25 History Calcium Acetate [PhosLo] 667 mg PO DAILY PRN 09/04/24 02/12/25 History Colchicine [Colcrys] 0.3 mg PO DAILY #15 each 09/23/24 02/12/25 Rx Ondansetron Odt [Zofran ODT] 4 mg PO Q8HR PRN 11/02/24 02/12/25 History Atorvastatin [Lipitor] 40 mg PO HS #0 11/23/24 02/12/25 Rx oxyCODONE-APAP 10-325MG [Percocet 1 tab PO Q4HR PRN #18 tab 11/23/24 02/12/25 Rx 10-325 mg] Folic Acid/Vit B Complex and C 0.8 mg PO DAILY 12/20/24 02/12/25 History [Davina-Mayte Tablet] hydrALAZINE HCL [Apresoline] 100 mg PO TID 30 Days #90 tab 01/01/25 02/12/25 Rx traZODone HCL [Desyrel] 50 mg PO HS #20 tab 01/01/25 02/12/25 Rx Divalproex ER [Depakote ER] 500 mg PO BID@0800,1700 #60 tab 01/02/25 02/12/25 Rx Isosorbide Mononitrate ER [Imdur] 120 mg PO DAILY #60 tab 01/02/25 02/12/25 Rx NIFEdipine XL [Procardia XL] 60 mg PO BID 30 Days #60 tab 01/02/25 02/12/25 Rx Gabapentin [Neurontin] 100 mg PO BID 30 Days #60 cap 01/03/25 02/12/25 Rx Linagliptin [Tradjenta] 5 mg PO DAILY #30 tab 01/03/25 02/12/25 Rx Insulin Lispro [humaLOG Kwikpen] 8 unit SQ AC-TID 01/22/25 02/12/25 History Insulin Lispro [humaLOG Kwikpen] See Protocol SQ AC-TID 01/22/25 02/12/25 History cloNIDine HCL [Catapres] 0.3 mg PO TID 01/22/25 02/12/25 History Butalb/APAP/Caff 50-325-40Mg 1 tab PO Q4HR PRN #12 tab 01/26/25 02/12/25 Rx [Fioricet 50-325-40] Insulin Glargine (Lantus) [Lantus 12 unit SQ BID@0700,2100 02/12/25 02/12/25 History Vial] carvediloL [Coreg] 50 mg PO BID #120 tablet 02/15/25 Rx Allergies Allergy/AdvReac Type Severity Reaction Status Date / Time hydromorphone HCl Allergy Anaphylaxis Verified 02/12/25 14:53 [From Dilaudid] propoxyphene Allergy Rash/Hives Verified 02/12/25 14:53 [From Darvocet-N] tramadol Allergy Anaphylaxis Verified 02/12/25 14:53 ibuprofen [From Motrin] AdvReac unable to Verified 02/12/25 14:53 take due to kidney disease venom-honey bee AdvReac passes out Verified 02/12/25 14:53 [bee venom (honey bee)] Physical Exam Vitals: Vital Signs Temp Pulse Pulse Resp BP Pulse Ox 02/18/25 12:20 88 02/18/25 12:11 84 02/18/25 11:33 97.4 F L 84 16 176/92 99 02/18/25 08:00 97.8 F 81 18 172/94 99 02/18/25 07:56 88 02/18/25 07:42 87 100 02/18/25 04:10 97.1 F L 87 14 160/75 98 02/18/25 00:00 97.4 F L 79 18 166/92 100 02/17/25 21:24 81 18 02/17/25 21:18 84 18 02/17/25 19:40 98.5 F 80 18 176/99 97 02/17/25 15:34 83 18 162/104 96 Intake and Output 02/17/25 02/18/25 02/18/25 22:59 06:59 14:59 Intake Total 66.701 33.014 521.179 Balance 66.701 33.014 521.179 Intake: Intake, IV Titration 66.701 33.014 41.179 Amount Insulin Regular 100 unit 66.701 33.014 41.179 In Sodium Chloride 0.9% 100 ml @ Titrate IV .Q0M [facility] Rx#:[id number] Oral 480 Other: Voiding Method Toilet Toilet # Voids 1 Weight 77.3 kg GENERAL DESCRIPTION: Middle-age female lying in bed, no distress. No tachypnea or accessory muscle of respiration use. HEENT: Shows Pallor , no scleral icterus. Oral mucous membrane is dry. NECK: Trachea central, no thyromegaly. LUNGS: Unlabored breathing. Clear to auscultation anteriorly. HEART: S1, S2, regular rate and rhythm. No loud murmur ABDOMEN: Soft, no tenderness , guarding or rigidity, no organomegaly EXTREMITIES: Left upper extremity Some swelling but no redness warmth or tenderness SKIN: No rash, no masses palpable. NEUROLOGICAL: The patient is awake, alert, oriented x3, mood and affect normal. Results CBC & Chem 7: 02/18/25 08:05 02/18/25 08:05 Labs: Abnormal Lab Results - Last 24 Hours (Table) 02/17/25 02/17/25 02/17/25 Range/Units 14:50 16:10 17:07 RBC (3.80-5.40) m/uL Hgb (11.4-16.0) gm/dL Hct (34.0-46.0) % MCV (80.0-100.0) fL MCHC (31.0-37.0) g/dL RDW (11.5-15.5) % Lymphocytes # (1.0-4.8) k/uL Sodium (137-145) mmol/L Potassium (3.5-5.1) mmol/L Chloride (98-107) mmol/L BUN (7-17) mg/dL Creatinine (0.52-1.04) mg/dL Glucose (74-99) mg/dL POC Glucose (mg/dL) 458 H 396 H 321 H (70-110) mg/dL AST (14-36) U/L ALT (4-34) U/L Alkaline Phosphatase (38-126) U/L 02/17/25 02/17/25 02/17/25 Range/Units 18:05 19:01 20:10 RBC (3.80-5.40) m/uL Hgb (11.4-16.0) gm/dL Hct (34.0-46.0) % MCV (80.0-100.0) fL MCHC (31.0-37.0) g/dL RDW (11.5-15.5) % Lymphocytes # (1.0-4.8) k/uL Sodium (137-145) mmol/L Potassium (3.5-5.1) mmol/L Chloride (98-107) mmol/L BUN (7-17) mg/dL Creatinine (0.52-1.04) mg/dL Glucose (74-99) mg/dL POC Glucose (mg/dL) 335 H 255 H 224 H (70-110) mg/dL AST (14-36) U/L ALT (4-34) U/L Alkaline Phosphatase (38-126) U/L 02/17/25 02/17/25 02/17/25 Range/Units 20:58 21:06 22:04 RBC (3.80-5.40) m/uL Hgb (11.4-16.0) gm/dL Hct (34.0-46.0) % MCV (80.0-100.0) fL MCHC (31.0-37.0) g/dL RDW (11.5-15.5) % Lymphocytes # (1.0-4.8) k/uL Sodium 134 L (137-145) mmol/L Potassium (3.5-5.1) mmol/L Chloride 93 L (98-107) mmol/L BUN 31 H (7-17) mg/dL Creatinine 2.52 H (0.52-1.04) mg/dL Glucose 150 H (74-99) mg/dL POC Glucose (mg/dL) 169 H 167 H (70-110) mg/dL AST 298 H (14-36) U/L ALT 331 H (4-34) U/L Alkaline Phosphatase 335 H (38-126) U/L 02/18/25 02/18/25 02/18/25 Range/Units 00:03 01:56 02:52 RBC (3.80-5.40) m/uL Hgb (11.4-16.0) gm/dL Hct (34.0-46.0) % MCV (80.0-100.0) fL MCHC (31.0-37.0) g/dL RDW (11.5-15.5) % Lymphocytes # (1.0-4.8) k/uL Sodium (137-145) mmol/L Potassium (3.5-5.1) mmol/L Chloride (98-107) mmol/L BUN (7-17) mg/dL Creatinine (0.52-1.04) mg/dL Glucose (74-99) mg/dL POC Glucose (mg/dL) 111 H 125 H 146 H (70-110) mg/dL AST (14-36) U/L ALT (4-34) U/L Alkaline Phosphatase (38-126) U/L 02/18/25 02/18/25 02/18/25 Range/Units 04:01 04:58 05:54 RBC (3.80-5.40) m/uL Hgb (11.4-16.0) gm/dL Hct (34.0-46.0) % MCV (80.0-100.0) fL MCHC (31.0-37.0) g/dL RDW (11.5-15.5) % Lymphocytes # (1.0-4.8) k/uL Sodium (137-145) mmol/L Potassium (3.5-5.1) mmol/L Chloride (98-107) mmol/L BUN (7-17) mg/dL Creatinine (0.52-1.04) mg/dL Glucose (74-99) mg/dL POC Glucose (mg/dL) 227 H 225 H 198 H (70-110) mg/dL AST (14-36) U/L ALT (4-34) U/L Alkaline Phosphatase (38-126) U/L 02/18/25 02/18/25 02/18/25 Range/Units 06:58 08:00 08:05 RBC 3.13 L (3.80-5.40) m/uL Hgb 9.6 L (11.4-16.0) gm/dL Hct 32.1 L (34.0-46.0) % MCV 102.6 H (80.0-100.0) fL MCHC 29.9 L (31.0-37.0) g/dL RDW 16.8 H (11.5-15.5) % Lymphocytes # 0.5 L (1.0-4.8) k/uL Sodium (137-145) mmol/L Potassium (3.5-5.1) mmol/L Chloride (98-107) mmol/L BUN (7-17) mg/dL Creatinine (0.52-1.04) mg/dL Glucose (74-99) mg/dL POC Glucose (mg/dL) 207 H 191 H (70-110) mg/dL AST (14-36) U/L ALT (4-34) U/L Alkaline Phosphatase (38-126) U/L 02/18/25 02/18/25 02/18/25 Range/Units 08:05 09:08 10:04 RBC (3.80-5.40) m/uL Hgb (11.4-16.0) gm/dL Hct (34.0-46.0) % MCV (80.0-100.0) fL MCHC (31.0-37.0) g/dL RDW (11.5-15.5) % Lymphocytes # (1.0-4.8) k/uL Sodium 134 L (137-145) mmol/L Potassium 5.3 H (3.5-5.1) mmol/L Chloride 94 L (98-107) mmol/L BUN 44 H (7-17) mg/dL Creatinine 3.19 H (0.52-1.04) mg/dL Glucose 184 H (74-99) mg/dL POC Glucose (mg/dL) 169 H 194 H (70-110) mg/dL AST 245 H (14-36) U/L ALT 316 H (4-34) U/L Alkaline Phosphatase 313 H (38-126) U/L 02/18/25 02/18/25 02/18/25 Range/Units 11:14 12:06 13:08 RBC (3.80-5.40) m/uL Hgb (11.4-16.0) gm/dL Hct (34.0-46.0) % MCV (80.0-100.0) fL MCHC (31.0-37.0) g/dL RDW (11.5-15.5) % Lymphocytes # (1.0-4.8) k/uL Sodium (137-145) mmol/L Potassium (3.5-5.1) mmol/L Chloride (98-107) mmol/L BUN (7-17) mg/dL Creatinine (0.52-1.04) mg/dL Glucose (74-99) mg/dL POC Glucose (mg/dL) 180 H 181 H 193 H (70-110) mg/dL AST (14-36) U/L ALT (4-34) U/L Alkaline Phosphatase (38-126) U/L Microbiology - Last 24 Hours (Table) 02/12/25 16:55 Blood Culture - Final Blood Assessment and Plan (1) Left arm pain Current Visit: No Status: Acute Code(s): M79.602 - PAIN IN LEFT ARM SNOMED Code(s): 957776205 Plan: 1patient with left upper extremity pain and swelling in this patient did have a history of end-stage renal disease on dialysis with left upper extremity loop arteriovenous graft and did have an ultrasound that was negative for DVT patient not running any fever no evidence of any redness to the left arm or elevated white count making phlebitis/septic phlebitis to be less likely 2-patient advised to keep the left arm elevated to keep some of the swelling down 3-no need for IV vancomycin at this point We will follow on clinical condition and cultures to further adjust medication if needed Thank you for this consultation we will follow the patient along with you Dictation was produced using [employer] dictation software. please excuse any grammatical, word or spelling errors. Time with Patient: Greater than 30
[2025-02-19 02:08] LABS: Glucose,Whole Blood 252 mg/dL (70-110)
--- NOTE | 2025-02-19 05:03 | PN ---
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 The patient is on high-dose IV steroids. Blood sugar is elevated. The patient is on insulin drip. Sugars are controlled at this time. The patient also complaining of right leg swelling. Leg ultrasound I ordered yesterday is negative. The patient is receiving hemodialysis. The patient is noncompliant with fluid intake. The patient is taking massive amounts of fluids. PAST MEDICAL HISTORY: Reviewed. REVIEW OF SYSTEMS: A 14-point review of systems is negative except as mentioned earlier. CURRENT MEDICATIONS: Reviewed. PHYSICAL EXAMINATION: VITAL SIGNS: Pulse is 84, blood pressure 176/92, respirations 16. CHEST: A few scattered rhonchi and crackles. ABDOMEN: Soft. NERVOUS SYSTEM: Nonfocal. LABORATORY DATA: Glucose 223. Rest of the labs are noted. Hemoglobin 9.6. Eosinophil is improved. LFTs are elevated. Complement levels are normal. ASSESSMENT: 1. Acute bilateral pulmonary edema secondary to renal failure and congestive heart failure exacerbation. 2. 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 3. Small to moderate pericardial effusion in the 2D echo previously. 4. End-stage renal disease, on hemodialysis. 5. Diabetes mellitus, type 2, uncontrolled with hyperglycemia. 6. Right leg swelling with negative deep venous thrombosis. 7. Possible acute bronchitis. 8. Possible thrombophlebitis on the left arm. 9. Congestive heart failure acute exacerbation. 10.Diabetes mellitus, type 2. 11.Hypertension. 12.History of seizures. RECOMMENDATIONS: Recommend to continue current medications and continue symptomatic treatment. Otherwise, continue with steroids. I would recommend to initiate Lantus. Ultrasound noted. Continue rest of medications. Guarded prognosis. Further recommendations to follow. Continue the hemodialysis. The importance of compliance also stressed with the patient. MMODL / IJN: [id number] /
[2025-02-19 06:02] LABS: Glucose,Whole Blood 236 mg/dL (70-110)
[2025-02-19 06:30] LABS: Anisocytosis Slight; Basophils % (A) 0 %; Eosinophils % (A) 0 %; HCT 31.2 % (34.0-46.0); HGB 9.5 gm/dL (11.4-16.0); Hypochromasia Slight; Lymphocytes # (A) 0.6 k/uL (1.0-4.8); Lymphocytes % (A) 7 %; MCH 31.4 pg (25.0-35.0); MCHC 30.6 g/dL (31.0-37.0); MCV 102.8 fL (80.0-100.0); Macrocytosis Moderate; Mean Platelet Volume 8.7; Monocytes # (A) 0.5 k/uL (0-1.0); Monocytes % (A) 6 %; Neutrophils # (A) 7.5 k/uL (1.3-7.7); Neutrophils % (A) 86 %; Platelet Count 290 k/uL (150-450); RBC 3.03 m/uL (3.80-5.40); WBC 8.6 k/uL (3.8-10.6)
[2025-02-19 06:44] LABS: African American GFR (CKD) 14 (>60 ml/min/1.73 sqM); Anion Gap 13 mmol/L; Blood Urea Nitrogen 71 mg/dL (7-17); Calcium 9.6 mg/dL (8.4-10.2); Carbon Dioxide 24 mmol/L (22-30); Chloride 96 mmol/L (98-107); Glucose 239 mg/dL (74-99); Non-African American GFR(CKD) 12 (>60 ml/min/1.73 sqM); Sodium 133 mmol/L (137-145)
[2025-02-19 06:56] LABS: Potassium 6.4 mmol/L (3.5-5.1)
[2025-02-19 07:54] VITALS: TEMP 98
[2025-02-19] MEDS: SODIUM ZIRCONIUM CYCLOSILICATE 10 GM PACKET PO ONE (07:55)
[2025-02-19] MEDS: CALCIUM GLUCONATE IN NACL 1 GM in SALINE 1 100ML.BAG IVPB ONE (07:55)
--- NOTE | 2025-02-19 10:12 | P.PN ---
Subjective Patient is seen in follow-up for end-stage renal disease. She is maintained on hemodialysis on Wednesday. Denies chest pain or shortness of breath. Tolerating dialysis well. Vital signs are stable. General: No acute distress. HEENT: Head exam is unremarkable. On nasal cannula. LUNGS: No audible rhonchi or wheezes. HEART: Rate and Rhythm are regular. ABDOMEN: Nontender. EXTREMITITES: 2+ edema. Objective - Vital Signs Vital signs: Vital Signs Temp 98.0 F 02/19/25 07:52 Pulse 76 02/19/25 09:50 Resp 16 02/19/25 07:52 BP 168/92 02/19/25 07:52 Pulse Ox 100 02/19/25 09:50 FiO2 Intake & Output 02/18/25 02/19/25 02/19/25 18:59 06:59 18:59 Intake Total 1001.179 480 Output Total 270 Balance 1001.179 -270 480 Weight 77.1 kg Intake: Intake, IV Titration 41.179 Amount Insulin Regular 100 unit 41.179 In Sodium Chloride 0.9% 100 ml @ Titrate IV .Q0M [facility] Rx#:[id number] Oral 960 480 Output: Urine 270 Other: Voiding Method Toilet Toilet # Voids 1 - Labs CBC & Chem 7: 02/19/25 05:56 02/19/25 05:56 Labs: Abnormal Lab Results - Last 24 Hours (Table) 02/18/25 02/18/25 02/18/25 Range/Units 10:04 11:14 12:06 RBC (3.80-5.40) m/uL Hgb (11.4-16.0) gm/dL Hct (34.0-46.0) % MCV (80.0-100.0) fL MCHC (31.0-37.0) g/dL RDW (11.5-15.5) % Lymphocytes # (1.0-4.8) k/uL Sodium (137-145) mmol/L Potassium (3.5-5.1) mmol/L Chloride (98-107) mmol/L BUN (7-17) mg/dL Creatinine (0.52-1.04) mg/dL Glucose (74-99) mg/dL POC Glucose (mg/dL) 194 H 180 H 181 H (70-110) mg/dL 02/18/25 02/18/25 02/18/25 Range/Units 13:08 14:12 14:59 RBC (3.80-5.40) m/uL Hgb (11.4-16.0) gm/dL Hct (34.0-46.0) % MCV (80.0-100.0) fL MCHC (31.0-37.0) g/dL RDW (11.5-15.5) % Lymphocytes # (1.0-4.8) k/uL Sodium (137-145) mmol/L Potassium (3.5-5.1) mmol/L Chloride (98-107) mmol/L BUN (7-17) mg/dL Creatinine (0.52-1.04) mg/dL Glucose (74-99) mg/dL POC Glucose (mg/dL) 193 H 223 H 220 H (70-110) mg/dL 02/18/25 02/18/25 02/19/25 Range/Units 16:10 20:08 02:07 RBC (3.80-5.40) m/uL Hgb (11.4-16.0) gm/dL Hct (34.0-46.0) % MCV (80.0-100.0) fL MCHC (31.0-37.0) g/dL RDW (11.5-15.5) % Lymphocytes # (1.0-4.8) k/uL Sodium (137-145) mmol/L Potassium (3.5-5.1) mmol/L Chloride (98-107) mmol/L BUN (7-17) mg/dL Creatinine (0.52-1.04) mg/dL Glucose (74-99) mg/dL POC Glucose (mg/dL) 225 H 280 H 252 H (70-110) mg/dL 02/19/25 02/19/25 02/19/25 Range/Units 05:56 05:56 05:59 RBC 3.03 L (3.80-5.40) m/uL Hgb 9.5 L (11.4-16.0) gm/dL Hct 31.2 L (34.0-46.0) % MCV 102.8 H (80.0-100.0) fL MCHC 30.6 L (31.0-37.0) g/dL RDW 17.0 H (11.5-15.5) % Lymphocytes # 0.6 L (1.0-4.8) k/uL Sodium 133 L (137-145) mmol/L Potassium 6.4 H* (3.5-5.1) mmol/L Chloride 96 L (98-107) mmol/L BUN 71 H (7-17) mg/dL Creatinine 4.37 H (0.52-1.04) mg/dL Glucose 239 H (74-99) mg/dL POC Glucose (mg/dL) 236 H (70-110) mg/dL Assessment and Plan Plan: Assessment: 1. End-stage renal disease maintained on hemodialysis on Wednesday. 2. Hypertension with chronic kidney disease. Exacerbated by steroids. 3. Volume overload. 4. Chronic kidney disease mineral bone disease maintained on PhosLo. 5. Anemia of chronic kidney disease maintained on Aranesp. 6. Pericardial effusion related to volume overload. Antihistone antibody positive. Hydralazine discontinued. On colchicine. 7. Hyperkalemia secondary to chronic kidney disease. Patient received IV calcium, IV insulin as well as Lokelma this morning. Plan: Currently seen while undergoing hemodialysis. Challenge ultrafiltration. Patient considering doing outpatient hemodialysis 5 times a week instead of 4. Again stressed compliance with fluid restriction of less than 50 ounces per day, low-sodium diet.
[2025-02-19] MEDS: INSULIN REGULAR 100 UNIT/ML VIAL (IV) IV ONE (10:18)
[2025-02-19] MEDS: DEXTROSE 50% SYRINGE 50 ML IVP STA (10:18)
[2025-02-19 11:34] LABS: Glucose,Whole Blood 166 mg/dL (70-110)
--- NOTE | 2025-02-19 11:39 | P.PN ---
Subjective Progress Note Date: 02/19/25 Principal diagnosis: Left upper extremity swelling Patient seen and examined today as a follow-up. She is currently undergoing hemodialysis without any complications. She has continued swelling of the left upper extremity as well as swelling of the right lower extremity. She has had venous duplex of both left upper extremity as well as the right lower extremity and both are negative for any DVT. She has full range of motion of the left upper extremity although she states that it is painful. Patient has been afebrile. Objective - Vital Signs Vital signs: Vital Signs Temp 98.0 F 02/19/25 07:52 Pulse 81 02/19/25 07:52 Resp 16 02/19/25 07:52 BP 168/92 02/19/25 07:52 Pulse Ox 99 02/19/25 07:52 FiO2 Intake & Output 02/18/25 02/19/25 02/19/25 18:59 06:59 18:59 Intake Total 1001.179 Output Total 270 Balance 1001.179 -270 Weight 77.1 kg Intake: Intake, IV Titration 41.179 Amount Insulin Regular 100 unit 41.179 In Sodium Chloride 0.9% 100 ml @ Titrate IV .Q0M [facility] Rx#:[id number] Oral 960 Output: Urine 270 Other: Voiding Method Toilet Toilet # Voids 1 - Exam General appearance: The patient is alert, oriented, appears in no acute di stress. HET: Head is normocephalic and atraumatic. Neck: Supple. Heart: Regular. Lungs: Equal expansion, normal respiratory effort. Abdomen: Soft, nondistended. Extremities: Normal skin color and turgor. Left upper extremity swelling. Palpable thrill over loop graft. Right lower extremity swelling. Neurological: No focal deficits. Alert and oriented. - Labs CBC & Chem 7: 02/19/25 05:56 02/19/25 05:56 Labs: Abnormal Lab Results - Last 24 Hours (Table) 02/18/25 02/18/25 02/18/25 Range/Units 10:04 11:14 12:06 RBC (3.80-5.40) m/uL Hgb (11.4-16.0) gm/dL Hct (34.0-46.0) % MCV (80.0-100.0) fL MCHC (31.0-37.0) g/dL RDW (11.5-15.5) % Lymphocytes # (1.0-4.8) k/uL Sodium (137-145) mmol/L Potassium (3.5-5.1) mmol/L Chloride (98-107) mmol/L BUN (7-17) mg/dL Creatinine (0.52-1.04) mg/dL Glucose (74-99) mg/dL POC Glucose (mg/dL) 194 H 180 H 181 H (70-110) mg/dL 02/18/25 02/18/25 02/18/25 Range/Units 13:08 14:12 14:59 RBC (3.80-5.40) m/uL Hgb (11.4-16.0) gm/dL Hct (34.0-46.0) % MCV (80.0-100.0) fL MCHC (31.0-37.0) g/dL RDW (11.5-15.5) % Lymphocytes # (1.0-4.8) k/uL Sodium (137-145) mmol/L Potassium (3.5-5.1) mmol/L Chloride (98-107) mmol/L BUN (7-17) mg/dL Creatinine (0.52-1.04) mg/dL Glucose (74-99) mg/dL POC Glucose (mg/dL) 193 H 223 H 220 H (70-110) mg/dL 02/18/25 02/18/25 02/19/25 Range/Units 16:10 20:08 02:07 RBC (3.80-5.40) m/uL Hgb (11.4-16.0) gm/dL Hct (34.0-46.0) % MCV (80.0-100.0) fL MCHC (31.0-37.0) g/dL RDW (11.5-15.5) % Lymphocytes # (1.0-4.8) k/uL Sodium (137-145) mmol/L Potassium (3.5-5.1) mmol/L Chloride (98-107) mmol/L BUN (7-17) mg/dL Creatinine (0.52-1.04) mg/dL Glucose (74-99) mg/dL POC Glucose (mg/dL) 225 H 280 H 252 H (70-110) mg/dL 02/19/25 02/19/25 02/19/25 Range/Units 05:56 05:56 05:59 RBC 3.03 L (3.80-5.40) m/uL Hgb 9.5 L (11.4-16.0) gm/dL Hct 31.2 L (34.0-46.0) % MCV 102.8 H (80.0-100.0) fL MCHC 30.6 L (31.0-37.0) g/dL RDW 17.0 H (11.5-15.5) % Lymphocytes # 0.6 L (1.0-4.8) k/uL Sodium 133 L (137-145) mmol/L Potassium 6.4 H* (3.5-5.1) mmol/L Chloride 96 L (98-107) mmol/L BUN 71 H (7-17) mg/dL Creatinine 4.37 H (0.52-1.04) mg/dL Glucose 239 H (74-99) mg/dL POC Glucose (mg/dL) 236 H (70-110) mg/dL Assessment and Plan Assessment: 1. End-stage renal disease requiring hemodialysis 2. Left upper extremity swelling and discomfort 3. History of left upper extremity loop AV graft 4. Right lower extremity swelling Plan: 1. No surgical intervention required at this time 2. Continue with left upper extremity elevation 3. Continue with pain control 4. May continue to use left upper extremity loop AV graft for dialysis Thank you for this consultation, we will continue to follow along. The impression and plan of care has been dictated as directed. Dr. Razo I performed a history and examination of this patient, discussed the same with the dictator. I agree with the dictator's note ,documented as a scribe. Any additional findings or plans will be noted.
--- NOTE | 2025-02-19 11:45 | P.PN ---
Subjective Progress Note Date: 02/19/25 Principal diagnosis: Reason for follow-up is left arm swelling question of phlebitis Patient is a 35-year-old female with a past medical history significant for diabetes mellitus reflux hypertension seizure disorder end-stage renal disease on dialysis with a left arm fistula presenting to the hospital for evaluation of difficulty in breathing as well as increasing edema, patient complaining of pain and swelling to the left upper extremity with the patient did have a fistula prompting this consultation. On today's evaluation that is 02/19/2025, patient has been afebrile, patient is breathing comfortably and is currently on 2 L nasal oxygen the patient is undergoing dialysis and per the corrosion control technician fistula is working perfectly without any obstruction or decreased blood flow. Patient white count 8.6, creatinine 4.37 he did have blood and sputum cultures has been negative Objective - Vital Signs Vital signs: Vital Signs Temp 98.0 F 02/19/25 07:52 Pulse 76 02/19/25 10:06 Resp 16 02/19/25 07:52 BP 168/92 02/19/25 07:52 Pulse Ox 100 02/19/25 09:50 FiO2 Intake & Output 02/18/25 02/19/25 02/19/25 18:59 06:59 18:59 Intake Total 1001.179 480 Output Total 270 Balance 1001.179 -270 480 Weight 77.1 kg Intake: Intake, IV Titration 41.179 Amount Insulin Regular 100 unit 41.179 In Sodium Chloride 0.9% 100 ml @ Titrate IV .Q0M [facility] Rx#:[id number] Oral 960 480 Output: Urine 270 Other: Voiding Method Toilet Toilet # Voids 1 - Exam Middle-age female lying in bed in no distress Unlabored breathing Left arm with minimal swelling no redness currently getting dialysis without any issue - Labs CBC & Chem 7: 02/19/25 05:56 02/19/25 05:56 Labs: Abnormal Lab Results - Last 24 Hours (Table) 02/18/25 02/18/25 02/18/25 Range/Units 12:06 13:08 14:12 RBC (3.80-5.40) m/uL Hgb (11.4-16.0) gm/dL Hct (34.0-46.0) % MCV (80.0-100.0) fL MCHC (31.0-37.0) g/dL RDW (11.5-15.5) % Lymphocytes # (1.0-4.8) k/uL Sodium (137-145) mmol/L Potassium (3.5-5.1) mmol/L Chloride (98-107) mmol/L BUN (7-17) mg/dL Creatinine (0.52-1.04) mg/dL Glucose (74-99) mg/dL POC Glucose (mg/dL) 181 H 193 H 223 H (70-110) mg/dL 02/18/25 02/18/25 02/18/25 Range/Units 14:59 16:10 20:08 RBC (3.80-5.40) m/uL Hgb (11.4-16.0) gm/dL Hct (34.0-46.0) % MCV (80.0-100.0) fL MCHC (31.0-37.0) g/dL RDW (11.5-15.5) % Lymphocytes # (1.0-4.8) k/uL Sodium (137-145) mmol/L Potassium (3.5-5.1) mmol/L Chloride (98-107) mmol/L BUN (7-17) mg/dL Creatinine (0.52-1.04) mg/dL Glucose (74-99) mg/dL POC Glucose (mg/dL) 220 H 225 H 280 H (70-110) mg/dL 02/19/25 02/19/25 02/19/25 Range/Units 02:07 05:56 05:56 RBC 3.03 L (3.80-5.40) m/uL Hgb 9.5 L (11.4-16.0) gm/dL Hct 31.2 L (34.0-46.0) % MCV 102.8 H (80.0-100.0) fL MCHC 30.6 L (31.0-37.0) g/dL RDW 17.0 H (11.5-15.5) % Lymphocytes # 0.6 L (1.0-4.8) k/uL Sodium 133 L (137-145) mmol/L Potassium 6.4 H* (3.5-5.1) mmol/L Chloride 96 L (98-107) mmol/L BUN 71 H (7-17) mg/dL Creatinine 4.37 H (0.52-1.04) mg/dL Glucose 239 H (74-99) mg/dL POC Glucose (mg/dL) 252 H (70-110) mg/dL 02/19/25 02/19/25 Range/Units 05:59 11:33 RBC (3.80-5.40) m/uL Hgb (11.4-16.0) gm/dL Hct (34.0-46.0) % MCV (80.0-100.0) fL MCHC (31.0-37.0) g/dL RDW (11.5-15.5) % Lymphocytes # (1.0-4.8) k/uL Sodium (137-145) mmol/L Potassium (3.5-5.1) mmol/L Chloride (98-107) mmol/L BUN (7-17) mg/dL Creatinine (0.52-1.04) mg/dL Glucose (74-99) mg/dL POC Glucose (mg/dL) 236 H 166 H (70-110) mg/dL Assessment and Plan (1) Left arm pain Current Visit: No Status: Acute Code(s): M79.602 - PAIN IN LEFT ARM SNOMED Code(s): 297602723 Plan: 1patient with left upper extremity pain and swelling in this patient did have a history of end-stage renal disease on dialysis with left upper extremity loop arteriovenous graft and did have an ultrasound that was negative for DVT patient not running any fever no evidence of any redness to the left arm or elevated white count making phlebitis/septic phlebitis to be less likely 2-patient has been advised to keep the left arm elevated and no need for systemic antibiotic therapy at this point Dictation was produced using [employer] dictation software. please excuse any grammatical, word or spelling errors. Time with Patient: Less than 30
[2025-02-19] MEDS: CALCIUM ACETATE 667 MG TAB PO SCH (12:19)
[2025-02-19 13:39] VITALS: BP 168/98; PULSE 68; RESP 18
[2025-02-19] MEDS ORDERED: methylPREDNISolone SOD SUCCI 40 MG/ML 1 ML VIAL IV SCH (14:00)
[2025-02-19] MEDS ORDERED: INSULIN GLARGINE (LANTUS) 100 UNIT/ML SYR SQ SCH (21:00)
--- NOTE | 2025-02-20 10:23 | P.DS ---
Providers Date of admission: 02/14/25 08:04 Expected date of discharge: 02/19/25 Attending physician: Jamal Glasgow MD Consults: 02/12/25 14:49 Consult Physician Urgent Consulting Provider: Charlene Lim Consult Reason/Comments: pulm edema Do you want consulting provider notified?: Yes 02/12/25 16:06 Consult Physician Routine Consulting Provider: Mahendra Hanson Consult Reason/Comments: chf Do you want consulting provider notified?: Yes 02/17/25 15:53 Consult Physician Routine Consulting Provider: Abril Grover Consult Reason/Comments: left arm (fistula) swelling Do you want consulting provider notified?: Yes 02/18/25 13:38 Consult Physician Routine Consulting Provider: Marianna Rm Consult Reason/Comments: suspect left arm phlebitis Do you want consulting provider notified?: Yes Primary care physician: Stated None Hospital Course: Final diagnosis Acute bilateral pulmonary edema secondary to renal failure and congestive heart failure exacerbation 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 Patient will follow-up with Dr. Maury Chan and/or possible [facility] in the outpatient setting upon discharge. Patient is to continue with hemodialysis as scheduled on Wednesday/Wednesday//Wednesday. Recommend outpatient follow-up with nephrology to discuss possible 5 days weekly. Continue prolonged prednisone taper on discharge. Total time taken is greater than 35 minutes. Hospital course This is a 35-year-old female who was recently admitted with volume overload CHF exacerbation also thought of have concerns of possible drug-induced lupus secondary to hydralazine with antihistone antibody being positive. Patient maintained on high-dose steroids and will continue on a long prednisone taper on discharge. Patient is maintained on hemodialysis Wednesday/Wednesday//Wednesday working on possibly 5 days weekly and recommend outpatient follow-up with nephrology. Patient has been cleared by consultations for discharge home after hemodialysis today. Patient reencouraged strict fluid restrictions as patient is somewhat noncompliant. Recommend tighter glycemic control and following diet. Blood sugars have been elevated and uncontrolled with hypo and hyperglycemia along with steroid effect. Please refer to other consultation notes for further HPI. Patient chronically follows with vascular surgery outpatient for left fistula issues as patient is having swelling. Fistula is functioning properly and was evaluated by vascular surgery with no plans of intervention at this time. Currently no reports of chest pain, shortness of breath, or palpitations. Patient is afebrile. No reports of nausea or vomiting and patient is tolerating diet. Patient will be discharged home today. Resources provided to follow-up with primary care providers outpatient. Guarded prognosis and high risk for readmissions as patient is noncompliant with significant comorbidities and has had multiple ER visits and hospitalizations. Physical exam: Gen: This is a 35-year-old female who is awake, alert and oriented x 3, well- developed, appears older than stated age, ill-appearing, chronically HEENT: Head is atraumatic, normocephalic. Pupils equal, round. Sclerae is anicteric. NECK: Supple. No JVD. No lymphadenopathy. No thyromegaly. LUNGS: Diminished breath sounds bilaterally with no wheezes although coarse scat tered rhonchi and crackles noted at the bases. No intercostal retractions. HEART: Regular rate and rhythm. No murmur. ABDOMEN: Soft. Bowel sounds are present. No masses. No tenderness. EXTREMITIES: No pedal edema. No calf tenderness. Mild lower extremity edema worse on the right, nonpitting NEUROLOGICAL: Patient is awake, alert and oriented x3. Cranial nerves 2 through 12 are grossly intact. Please refer to medication reconciliation sheet for a list of medications. The impression and plan of care has been dictated by Margie Urbina, Nurse Practitioner as directed. Dr. Dustin MD I have performed a history and examination and MDM of this patient, discussed the same with the dictator, and agree with the dictator's assessment and plan as written ,documented as a scribe. Based on total visit time, I have performed more than 50% of the visit. Patient Condition at Discharge: Serious Plan - Discharge Summary New Discharge Prescriptions: New carvediloL [Coreg] 50 mg PO BID #120 tablet Ipratropium-Albuterol Nebulize [Duoneb 0.5 mg-3 mg/3 ml Soln] 3 ml INHALATION RT-TID #100 each Calcium Acetate [PhosLo] 1,334 mg PO TID-W/MEALS 30 Days #360 tab predniSONE See Taper PO DIRECTED #100 tab Continue Magnesium Hydroxide [Milk of Magnesia Concentrate] 7,200 mg PO DAILY PRN PRN Reason: Constipation Lidocaine 4% Patch 1 patch TOPICAL DAILY@0800 Ipratropium-Albuterol Nebulize [Duoneb 0.5 mg-3 mg/3 ml Soln] 3 ml INHALATION RT-TID PRN each PRN Reason: Shortness Of Breath Or Wheezing Biotene Dry Mouth/Throat 10 ml PO BID PRN PRN Reason: DRY MOUTH/THROAT Acetaminophen [Tylenol] 650 mg PO Q4H PRN PRN Reason: Pain Or Fever > 100.5 Darbepoetin Artur [Aranesp] 40 mcg SQ MO Loratadine [Claritin] 5 mg PO DAILY tab Sertraline [Zoloft] 200 mg PO DAILY@0800 ALPRAZolam [Xanax] 0.25 mg PO BID PRN PRN Reason: Anxiety Colchicine [Colcrys] 0.3 mg PO DAILY #15 each Ondansetron Odt [Zofran ODT] 4 mg PO Q8HR PRN PRN Reason: Nausea And Vomiting Atorvastatin [Lipitor] 40 mg PO HS #0 Folic Acid/Vit B Complex and C [Davina-Mayte Tablet] 0.8 mg PO DAILY Divalproex ER [Depakote ER] 500 mg PO BID@0800,1700 #60 tab Isosorbide Mononitrate ER [Imdur] 120 mg PO DAILY #60 tab NIFEdipine XL [Procardia XL] 60 mg PO BID 30 Days #60 tab Gabapentin [Neurontin] 100 mg PO BID 30 Days #60 cap Linagliptin [Tradjenta] 5 mg PO DAILY #30 tab cloNIDine HCL [Catapres] 0.3 mg PO TID Insulin Lispro [humaLOG Kwikpen] See Protocol SQ AC-TID Butalb/APAP/Caff 50-325-40Mg [Fioricet 50-325-40] 1 tab PO Q4HR PRN #12 tab PRN Reason: Headache Docusate [Colace] 100 mg PO DAILY@0800 polyethylene glycoL 3350 [Miralax] 17 gm PO AC-LUNCH #527 gm Melatonin 1 mg PO HS tab Aspirin 81 mg PO DAILY@0800 #30 tab Famotidine [Pepcid] 20 mg PO BID #60 tab Levothyroxine Sodium [Synthroid] 175 mcg PO DAILY@0600 Metoclopramide [Reglan] 5 mg PO AC-TID PRN PRN Reason: Nausea Pantoprazole [Protonix] 40 mg PO DAILY@0600 oxyCODONE-APAP 10-325MG [Percocet 10-325 mg] 1 tab PO Q4HR PRN #18 tab PRN Reason: Pain SCALE 6-10 traZODone HCL [Desyrel] 50 mg PO HS #20 tab Insulin Lispro [humaLOG Kwikpen] 8 unit SQ AC-TID Changed Insulin Glargine (Lantus) [Lantus Vial] 20 unit SQ BID@0700,2100 #0 Discontinued Calcium Acetate [PhosLo] 667 mg PO DAILY PRN PRN Reason: W/SNACK hydrALAZINE HCL [Apresoline] 100 mg PO TID 30 Days #90 tab Labetalol [Trandate] 500 mg PO BID 30 Days #150 tab Discharge Medication List Docusate [Colace] 100 mg PO DAILY@0800 02/05/24 [History] Lidocaine 4% Patch 1 patch TOPICAL DAILY@0802/05/24 [History] Magnesium Hydroxide [Milk of Magnesia Concentrate] 7,200 mg PO DAILY PRN 02/05/24 [History] Ipratropium-Albuterol Nebulize [Duoneb 0.5 mg-3 mg/3 ml Soln] 3 ml INHALATION RT-TID PRN each 02/14/24 [Rx] polyethylene glycoL 3350 [Miralax] 17 gm PO AC-LUNCH #527 gm 02/14/24 [Rx] Acetaminophen [Tylenol] 650 mg PO Q4H PRN 02/18/24 [History] Biotene Dry Mouth/Throat 10 ml PO BID PRN 02/18/24 [History] Melatonin 1 mg PO HS tab 02/25/24 [Rx] Darbepoetin Artur [Aranesp] 40 mcg SQ MO 03/14/24 [History] Loratadine [Claritin] 5 mg PO DAILY tab 03/30/24 [Rx] Aspirin 81 mg PO DAILY@0800 #30 tab 05/18/24 [Rx] Famotidine [Pepcid] 20 mg PO BID #60 tab 07/11/24 [Rx] Levothyroxine Sodium [Synthroid] 175 mcg PO DAILY@0608/14/24 [History] Metoclopramide [Reglan] 5 mg PO AC-TID PRN 08/14/24 [History] Pantoprazole [Protonix] 40 mg PO DAILY@59908/14/24 [History] Sertraline [Zoloft] 200 mg PO DAILY@79908/14/24 [History] ALPRAZolam [Xanax] 0.25 mg PO BID PRN 09/04/24 [History] Colchicine [Colcrys] 0.3 mg PO DAILY #15 each 09/23/24 [Rx] Ondansetron Odt [Zofran ODT] 4 mg PO Q8HR PRN 11/02/24 [History] Atorvastatin [Lipitor] 40 mg PO HS #0 11/23/24 [Rx] oxyCODONE-APAP 10-325MG [Percocet 10-325 mg] 1 tab PO Q4HR PRN #18 tab 11/23/24 [Rx] Folic Acid/Vit B Complex and C [Davina-Mayte Tablet] 0.8 mg PO DAILY 12/20/24 [History] traZODone HCL [Desyrel] 50 mg PO HS #20 tab 01/01/25 [Rx] Divalproex ER [Depakote ER] 500 mg PO BID@0800,1700 #60 tab 01/02/25 [Rx] Isosorbide Mononitrate ER [Imdur] 120 mg PO DAILY #60 tab 01/02/25 [Rx] NIFEdipine XL [Procardia XL] 60 mg PO BID 30 Days #60 tab 01/02/25 [Rx] Gabapentin [Neurontin] 100 mg PO BID 30 Days #60 cap 01/03/25 [Rx] Linagliptin [Tradjenta] 5 mg PO DAILY #30 tab 01/03/25 [Rx] Insulin Lispro [humaLOG Kwikpen] 8 unit SQ AC-TID 01/22/25 [History] Insulin Lispro [humaLOG Kwikpen] See Protocol SQ AC-TID 01/22/25 [History] cloNIDine HCL [Catapres] 0.3 mg PO TID 01/22/25 [History] Butalb/APAP/Caff 50-325-40Mg [Fioricet 50-325-40] 1 tab PO Q4HR PRN #12 tab 01/26/25 [Rx] carvediloL [Coreg] 50 mg PO BID #120 tablet 02/15/25 [Rx] Calcium Acetate [PhosLo] 1,334 mg PO TID-W/MEALS 30 Days #360 tab 02/19/25 [Rx] Insulin Glargine (Lantus) [Lantus Vial] 20 unit SQ BID@0700,2100 #0 02/19/25 [Rx] Ipratropium-Albuterol Nebulize [Duoneb 0.5 mg-3 mg/3 ml Soln] 3 ml INHALATION RT-TID #100 each 02/19/25 [Rx] predniSONE See Taper PO DIRECTED #100 tab 02/19/25 [Rx] Follow up Appointment(s)/Referral(s): Charlene Lim MD [STAFF PHYSICIAN] - 1 Week Azeem Avila DO [STAFF PHYSICIAN] - 1 Week [facility] [NON-STAFF] - 02/23/25 10:00 am (Please bring insurance and ID cards. You will have new patient paperwork to complete. ) [facility] [NON-STAFF] - As Needed Activity/Diet/Wound Care/Special Instructions: Activity limited until follow-up Follow-up with nephrology and discuss possibly dialysis 5 days weekly Continue with prednisone taper until finished. Continue 40 mg daily x 5 days then 30 mg daily x 5 days, then 20 mg x 5 days, then 10 mg x 5 days Follow-up cardiology outpatient Continue taking medications as prescribed Recommend strict fluid restrictions of 40 cc daily including all oral intake of fluids Discharge Disposition: HOME WITH HOME HEALTH SERVICES
== END 2025-02-19 16:11 | disposition home health service (06) | DRG 291 ==
LOC: EC 11:59 → 6NMEDSUR 14:53 → 4SSUR 19:43 → OBSVTOIN 02-14 08:04 → 3SCARD 02-17 14:31
PROVIDERS: ADMIT Internal Medicine; ATTEND Internal Medicine
PROC: 5A1D70Z Performance of Urinary Filtration, Intermittent, Less than 6 Hours Per Day (ICD-10-PCS; principal; 2025-02-15)
DX: I13.2 Hypertensive heart and chronic kidney disease with heart failure and with stage 5 chronic kidney disease, or end stage renal disease (principal); I50.31 Acute diastolic (congestive) heart failure; N18.6 End stage renal disease; I31.39 Other pericardial effusion (noninflammatory); I27.20 Pulmonary hypertension, unspecified; D63.1 Anemia in chronic kidney disease; I80.8 Phlebitis and thrombophlebitis of other sites; M32.0 Drug-induced systemic lupus erythematosus; Z99.2 Dependence on renal dialysis; G40.909 Epilepsy, unspecified, not intractable, without status epilepticus; E10.22 Type 1 diabetes mellitus with diabetic chronic kidney disease; N17.9 Acute kidney failure, unspecified; E10.65 Type 1 diabetes mellitus with hyperglycemia; Z79.4 Long term (current) use of insulin; E78.5 Hyperlipidemia, unspecified; J20.9 Acute bronchitis, unspecified; E87.5 Hyperkalemia; J11.1 Influenza due to unidentified influenza virus with other respiratory manifestations; K31.84 Gastroparesis; M89.8X9 Other specified disorders of bone, unspecified site; T38.0X5A Adverse effect of glucocorticoids and synthetic analogues, initial encounter; Z79.52 Long term (current) use of systemic steroids; Z79.82 Long term (current) use of aspirin; Z79.84 Long term (current) use of oral hypoglycemic drugs; Z79.890 Hormone replacement therapy; Z79.899 Other long term (current) drug therapy; R16.0 Hepatomegaly, not elsewhere classified; Z82.49 Family history of ischemic heart disease and other diseases of the circulatory system; Z83.3 Family history of diabetes mellitus; Z86.73 Personal history of transient ischemic attack (TIA), and cerebral infarction without residual deficits; Z91.119 Patient's noncompliance with dietary regimen due to unspecified reason; Z91.148 Patient's other noncompliance with medication regimen for other reason; Z91.199 Patient's noncompliance with other medical treatment and regimen due to unspecified reason; Z88.5 Allergy status to narcotic agent; Z88.6 Allergy status to analgesic agent; Z91.030 Bee allergy status; T46.5X5A Adverse effect of other antihypertensive drugs, initial encounter; X58.XXXA Exposure to other specified factors, initial encounter; Z87.891 Personal history of nicotine dependence
CPT/HCPCS: 36415; 71045; 71046; 71250; 80048; 80053; 80164; 83036; 83516; 83605; 83735; 83880; 84132; 84145; 84484; 85025; 85610; 85652; 85730; 86038; 86140; 86160; 86162; 86225; 86255; 87040; 87070; 87205; 87636; 90935; 94640; 94760; 96365; 96372; 99285

== ENCOUNTER 2025-02-26 13:07 | Inpatient (IN) | payer MEDICARE ==
--- NOTE | 2025-02-26 13:23 | ED ---
General Adult HPI - General Chief complaint: Shortness of Breath Stated complaint: WAQAR Time Seen by Provider: 02/26/25 13:10 Source: patient, EMS, RN notes reviewed, old records reviewed Mode of arrival: EMS Limitations: no limitations - History of Present Illness Initial comments: This is a 35-year-old female who presents to the emergency department co mplaining of difficulty breathing that started yesterday. Patient states is getting worse today. Patient states her last dialysis was Wednesday. Patient states she is smoking. Patient states the edema in her legs and her abdomen has gotten much worse. Patient denies any palpitations. Patient denies chest pain. Patient denies any fever or chills. Patient states she has a slight cough. - Related Data Home Medications Medication Instructions Recorded Confirmed Docusate [Colace] 100 mg PO DAILY@79902/05/24 02/26/25 Lidocaine 4% Patch 1 patch TOPICAL DAILY@79902/05/24 02/26/25 Magnesium Hydroxide [Milk of 7,200 mg PO DAILY PRN 02/05/24 02/26/25 Magnesia Concentrate] Acetaminophen [Tylenol] 650 mg PO Q4H PRN 02/18/24 02/26/25 Biotene Dry Mouth/Throat 10 ml PO BID PRN 02/18/24 02/26/25 Levothyroxine Sodium [Synthroid] 175 mcg PO DAILY@59908/14/24 02/26/25 Metoclopramide [Reglan] 5 mg PO AC-TID PRN 08/14/24 02/26/25 Pantoprazole [Protonix] 40 mg PO DAILY@59908/14/24 02/26/25 Sertraline [Zoloft] 200 mg PO DAILY@79908/14/24 02/26/25 Ondansetron Odt [Zofran ODT] 4 mg PO Q8HR PRN 11/02/24 02/26/25 Folic Acid/Vit B Complex and C 0.8 mg PO DAILY 12/20/24 02/26/25 [Davina-Mayte Tablet] Insulin Lispro [humaLOG Kwikpen] 8 unit SQ AC-TID 01/22/25 02/26/25 Insulin Lispro [humaLOG Kwikpen] See Protocol SQ AC-TID 01/22/25 02/26/25 cloNIDine HCL [Catapres] 0.3 mg PO TID 01/22/25 02/26/25 ALPRAZolam [Xanax] 0.25 mg PO BID PRN 02/26/25 02/26/25 Divalproex Sodium [Depakote] 500 mg PO BID@0800,1700 02/26/25 02/26/25 Insulin Glargine (Lantus) [Lantus 14 unit SQ BID 02/26/25 02/26/25 Vial] Lidocaine 5% Cream 1 applic TOPICAL MOTUWETHSA 02/26/25 02/26/25 Methoxy Peg-Epoetin Beta [Mircera] 100 mcg SQ Q14D 02/26/25 02/26/25 Previous Rx's Medication Instructions Recorded Ipratropium-Albuterol Nebulize 3 ml INHALATION RT-TID PRN each 02/14/24 [Duoneb 0.5 mg-3 mg/3 ml Soln] polyethylene glycoL 3350 [Miralax] 17 gm PO AC-LUNCH #527 gm 02/14/24 Melatonin 1 mg PO HS tab 02/25/24 Loratadine [Claritin] 5 mg PO DAILY tab 03/30/24 Aspirin 81 mg PO DAILY@0800 #30 tab 05/18/24 Famotidine [Pepcid] 20 mg PO BID #60 tab 07/11/24 Colchicine [Colcrys] 0.3 mg PO DAILY #15 each 09/23/24 Atorvastatin [Lipitor] 40 mg PO HS #0 11/23/24 oxyCODONE-APAP 10-325MG [Percocet 1 tab PO Q4HR PRN #18 tab 11/23/24 10-325 mg] traZODone HCL [Desyrel] 50 mg PO HS #20 tab 01/01/25 Isosorbide Mononitrate ER [Imdur] 120 mg PO DAILY #60 tab 01/02/25 NIFEdipine XL [Procardia XL] 60 mg PO BID 30 Days #60 tab 01/02/25 Gabapentin [Neurontin] 100 mg PO BID 30 Days #60 cap 01/03/25 Linagliptin [Tradjenta] 5 mg PO DAILY #30 tab 01/03/25 Butalb/APAP/Caff 50-325-40Mg 1 tab PO Q4HR PRN #12 tab 01/26/25 [Fioricet 50-325-40] carvediloL [Coreg] 50 mg PO BID #120 tablet 02/15/25 Calcium Acetate [PhosLo] 1,334 mg PO TID-W/MEALS 30 Days 02/19/25 #360 tab Ipratropium-Albuterol Nebulize 3 ml INHALATION RT-TID #100 each 02/19/25 [Duoneb 0.5 mg-3 mg/3 ml Soln] Allergies Allergy/AdvReac Type Severity Reaction Status Date / Time hydromorphone HCl Allergy Anaphylaxis Verified 02/26/25 14:57 [From Dilaudid] propoxyphene Allergy Rash/Hives Verified 02/26/25 14:57 [From Darvocet-N] tramadol Allergy Anaphylaxis Verified 02/26/25 14:57 ibuprofen [From Motrin] AdvReac unable to Verified 02/26/25 14:57 take due to kidney disease venom-honey bee AdvReac passes out Verified 02/26/25 14:57 [bee venom (honey bee)] Review of Systems ROS Statement: Those systems with pertinent positive or pertinent negative responses have been documented in the HPI. ROS Other: All systems not noted in ROS Statement are negative. 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 Past Anesthesia/Blood Transfusion Reactions: Previous Problems w/ Anesthesia Additional Past Anesthesia/Blood Transfusion Reaction / Comment(s): confusion Past Psychological History: Anxiety, Depression Smoking Status: Current every day smoker Past Alcohol Use History: None Reported Past Drug Use History: Marijuana - Past Family History Father History Unknown: Yes Family Medical History: Unable to Obtain Mother History Unknown: Yes Family Medical History: No Reported History Grandfather History Unknown: Yes Family Medical History: Coronary Artery Disease (CAD) Additional Family Medical History / Comment(s): Diabetes mellitus type 2 General Exam - General Exam Comments Initial Comments: GENERAL: Patient is well-developed and well-nourished. Patient is nontoxic and well- hydrated and is in mild distress. ENT: Neck is soft and supple. No significant lymphadenopathy is noted. Oropharynx is clear. Moist mucous membranes. Neck has full range of motion without eliciting any pain. EYES: The sclera were anicteric and conjunctiva were pink and moist. Extraocular movements were intact and pupils were equal round and reactive to light. Eyelids were unremarkable. PULMONARY: Diminished breath sounds in the bases CARDIOVASCULAR: There is a regular rate and rhythm without any murmurs gallops or rubs. ABDOMEN: Soft and nontender with normal bowel sounds. SKIN: Skin is clear with no lesions or rashes and otherwise unremarkable. NEUROLOGIC: Patient is alert and oriented x3. Cranial nerves II through XII are grossly intact. Motor and sensory are also intact. Normal speech, volume and content. Symmetrical smile. MUSCULOSKELETAL: Normal extremities with adequate strength and full range of motion. No lower extremity swelling or edema. No calf tenderness. Patient has 2+ edema in both legs patient also has some edema to her abdomen. LYMPHATICS: No significant lymphadenopathy is noted PSYCHIATRIC: Normal psychiatric evaluation. Limitations: no limitations Course Vital Signs 02/26/25 02/26/25 02/26/25 13:10 13:33 16:17 Temperature 97.1 F L 98.6 F Pulse Rate 74 77 Respiratory 20 20 18 Rate Blood Pressure 158/85 169/91 O2 Sat by Pulse 96 95 Oximetry Medical Decision Making - Medical Decision Making EKG is interpreted by myself. EKG shows sinus rhythm at 73 bpm MI 138 QRS 91 QT interval 432 QTc is 457. Patient's EKG shows no ST segment elevation or depression Was pt. sent in by a medical professional or institution (, PA, [facility], urgent care, hospital, or skilled nursing...) When possible be specific @ -No Did you speak to anyone other than the patient for history (EMS, parent, family, police, friend...)? What history was obtained from this source @ -No Did you review nursing and triage notes (agree or disagree)? Why? @ -I reviewed and agree with nursing and triage notes Were old charts reviewed (outside hosp., previous admission, EMS record, old EKG, old radiological studies, urgent care reports/EKG's, skilled nursing records)? Report findings @ -No old charts were reviewed Differential Diagnosis? @ -Differential Dyspnea: Coronary syndrome, arrhythmia, tamponade, asthma, COPD, pulmonary embolism, pneu monia, pneumothorax, pulmonary effusion, anaphylaxis, diabetic ketoacidosis, flailed chest, pulmonary contusion, diaphragmatic rupture, anemia, neuromuscular, this is not meant to be an all-inclusive list. EKG interpreted by me (3pts min.). @ -As above X-rays interpreted by me (1pt min.). @ -X-ray shows pulmonary edema CT interpreted by me (1pt min.). @ -None done U/S interpreted by me (1pt. min.). @ -None done What testing was considered but not performed or refused? (CT, X-rays, U/S, labs)? Why? @ -None What meds were considered but not given or refused? Why? @ -None Did you discuss the management of the patient with other professionals (professionals i.e. , PA, [facility], lab, RT, psych nurse, social economist, rerecording mixer, teacher, chief investment officer, case packer)? Give summary @ -I spoke with Dr. Sanchez he agreed to admit the patient admit the patient wrote admitting orders Was smoking cessation discussed for >3mins.? @ -No Was critical care preformed (if so, how long)? @ -35 minutes Were there social determinants of health that impacted care today? How? (Homelessness, low income, unemployed, alcoholism, drug addiction, transportation, low edu. Level, literacy, decrease access to med. care, nursing home, rehab)? @ -No Was there de-escalation of care discussed even if they declined (Discuss DNR or withdrawal of care, Hospice)? DNR status @ -No What co-morbidities impacted this encounter? (DM, HTN, Smoking, COPD, CAD, Cancer, CVA, ARF, Chemo, Hep., AIDS, mental health diagnosis, sleep apnea, m orbid obesity)? @ -None Was patient admitted / discharged? Hospital course, mention meds given and r oute, prescriptions, significant lab abnormalities, going to OR and other pertinent info. @ -Patient came in with an elevated sugar and difficulty breathing. Patient has pulmonary edema and so Lasix was given. Patient also had an elevated sugar so she was given a insulin bolus as well as an insulin drip. I spoke with Dr. randall who he agreed to admit the patient I consulted Dr. Lim and she stated she would set up dialysis for the patient.. Undiagnosed new problem with uncertain prognosis? @ -No Drug Therapy requiring intensive monitoring for toxicity (Heparin, Nitro, Insulin, Cardizem)? @ -No Were any procedures done? @ -No Diagnosis/symptom? @ -Hyperglycemia Acute, or Chronic, or Acute on Chronic? @ -Acute Uncomplicated (without systemic symptoms) or Complicated (systemic symptoms)? @ -Complicated Side effects of treatment? @ -No Exacerbation, Progression, or Severe Exacerbation? @ -No Poses a threat to life or bodily function? How? (Chest pain, USA, LA, pneumonia, PE, COPD, DKA, ARF, appy, cholecystitis, CVA, Diverticulitis, Homicidal, Suicidal, threat to staff... and all critical care pts) @ -No Diagnosis/symptom? @ -Pulmonary edema Acute, or Chronic, or Acute on Chronic? @ -Acute Uncomplicated (without systemic symptoms) or Complicated (systemic symptoms)? @ -Complicated Side effects of treatment? @ -None Exacerbation, Progression, or Severe Exacerbation] @ -No Poses a threat to life or bodily function? @ -Yes this can lead to hypoxia and endorgan dysfunction - Lab Data Result diagrams: 02/26/25 13:31 02/26/25 16:05 Lab Results 02/26/25 02/26/25 02/26/25 Range/Units 13:17 13:31 13:31 WBC 11.26 H (4.50-10.00) 10*3/uL RBC 3.14 L (4.10-5.20) 10*6/uL Hgb 10.0 L (12.0-15.0) g/dL Hct 29.5 L (37.2-46.3) % MCV 93.9 (80.0-97.0) fL MCH 31.8 (27.0-32.0) pg MCHC 33.9 (32.0-37.0) g/dL Plt Count 259 (140-440) 10*3/uL MPV 11.3 (9.5-12.2) fL Immature Gran % (Auto) 0.6 % Neutrophils % 90.9 % Lymphocytes % 4.2 % Monocytes % 2.2 % Eosinophils % 1.5 % Basophils % 0.6 % Immature Gran # 0.07 H (0.00-0.04) 10*3/uL Neutrophils # 10.23 H (1.80-7.70) 10*3/uL Lymphocytes # 0.47 L (0.90-5.00) 10*3/uL Monocytes # 0.25 (0.20-1.00) 10*3/uL Eosinophils # 0.17 (0.04-0.35) 10*3/uL Basophils # 0.07 (0.00-0.10) 10*3/uL PT 11.7 (10.0-12.5) sec INR 1.1 (<1.2) APTT 23.1 (22.0-30.0) sec VBG pH (7.31-7.41) VBG pCO2 (37-51) mmHg VBG HCO3 (24-28) mmol/L Sodium (137-145) mmol/L Potassium (3.5-5.1) mmol/L Chloride (98-107) mmol/L Carbon Dioxide (22-30) mmol/L Anion Gap mmol/L BUN (7-17) mg/dL Creatinine (0.52-1.04) mg/dL Est GFR (CKD-EPI)AfAm (>60 ml/min/1.73 sqM) Est GFR (CKD-EPI)NonAf (>60 ml/min/1.73 sqM) Glucose (74-99) mg/dL POC Glucose (mg/dL) 588 H* (70-110) mg/dL POC Glu Slip Feeder ID Emir Rosado Lactic Ac Sepsis Rflx Plasma Lactic Acid Christopher (0.7-2.0) mmol/L Calcium (8.4-10.2) mg/dL Phosphorus (2.5-4.5) mg/dL Magnesium (1.6-2.3) mg/dL Total Bilirubin (0.2-1.3) mg/dL AST (14-36) U/L ALT (4-34) U/L Alkaline Phosphatase (38-126) U/L Troponin I (0.000-0.034) ng/mL NT-Pro-B Natriuret Pep pg/mL Total Protein (6.3-8.2) g/dL Albumin (3.5-5.0) g/dL Acetone, Qual (Negative) 02/26/25 02/26/25 02/26/25 Range/Units 13:31 13:31 13:31 WBC (4.50-10.00) 10*3/uL RBC (4.10-5.20) 10*6/uL Hgb (12.0-15.0) g/dL Hct (37.2-46.3) % MCV (80.0-97.0) fL MCH (27.0-32.0) pg MCHC (32.0-37.0) g/dL Plt Count (140-440) 10*3/uL MPV (9.5-12.2) fL Immature Gran % (Auto) % Neutrophils % % Lymphocytes % % Monocytes % % Eosinophils % % Basophils % % Immature Gran # (0.00-0.04) 10*3/uL Neutrophils # (1.80-7.70) 10*3/uL Lymphocytes # (0.90-5.00) 10*3/uL Monocytes # (0.20-1.00) 10*3/uL Eosinophils # (0.04-0.35) 10*3/uL Basophils # (0.00-0.10) 10*3/uL PT (10.0-12.5) sec INR (<1.2) APTT (22.0-30.0) sec VBG pH (7.31-7.41) VBG pCO2 (37-51) mmHg VBG HCO3 (24-28) mmol/L Sodium 125 L (137-145) mmol/L Potassium 5.2 H (3.5-5.1) mmol/L Chloride 82 L (98-107) mmol/L Carbon Dioxide 25 (22-30) mmol/L Anion Gap 18 mmol/L BUN 74 H (7-17) mg/dL Creatinine 4.96 H (0.52-1.04) mg/dL Est GFR (CKD-EPI)AfAm 12 (>60 ml/min/1.73 sqM) Est GFR (CKD-EPI)NonAf 11 (>60 ml/min/1.73 sqM) Glucose 612 H* (74-99) mg/dL POC Glucose (mg/dL) (70-110) mg/dL POC Glu Slip Feeder ID Lactic Ac Sepsis Rflx Plasma Lactic Acid Christopher 2.1 H* (0.7-2.0) mmol/L Calcium 9.4 (8.4-10.2) mg/dL Phosphorus (2.5-4.5) mg/dL Magnesium 1.7 (1.6-2.3) mg/dL Total Bilirubin 1.0 (0.2-1.3) mg/dL AST 50 H (14-36) U/L ALT 112 H (4-34) U/L Alkaline Phosphatase 211 H (38-126) U/L Troponin I 0.014 (0.000-0.034) ng/mL NT-Pro-B Natriuret Pep 51873 pg/mL Total Protein 7.0 (6.3-8.2) g/dL Albumin 4.5 (3.5-5.0) g/dL Acetone, Qual (Negative) 02/26/25 02/26/25 02/26/25 Range/Units 13:31 14:09 14:23 WBC (4.50-10.00) 10*3/uL RBC (4.10-5.20) 10*6/uL Hgb (12.0-15.0) g/dL Hct (37.2-46.3) % MCV (80.0-97.0) fL MCH (27.0-32.0) pg MCHC (32.0-37.0) g/dL Plt Count (140-440) 10*3/uL MPV (9.5-12.2) fL Immature Gran % (Auto) % Neutrophils % % Lymphocytes % % Monocytes % % Eosinophils % % Basophils % % Immature Gran # (0.00-0.04) 10*3/uL Neutrophils # (1.80-7.70) 10*3/uL Lymphocytes # (0.90-5.00) 10*3/uL Monocytes # (0.20-1.00) 10*3/uL Eosinophils # (0.04-0.35) 10*3/uL Basophils # (0.00-0.10) 10*3/uL PT (10.0-12.5) sec INR (<1.2) APTT (22.0-30.0) sec VBG pH 7.48 H (7.31-7.41) VBG pCO2 34 L (37-51) mmHg VBG HCO3 25 (24-28) mmol/L Sodium (137-145) mmol/L Potassium (3.5-5.1) mmol/L Chloride (98-107) mmol/L Carbon Dioxide (22-30) mmol/L Anion Gap mmol/L BUN (7-17) mg/dL Creatinine (0.52-1.04) mg/dL Est GFR (CKD-EPI)AfAm (>60 ml/min/1.73 sqM) Est GFR (CKD-EPI)NonAf (>60 ml/min/1.73 sqM) Glucose (74-99) mg/dL POC Glucose (mg/dL) (70-110) mg/dL POC Glu Slip Feeder ID Lactic Ac Sepsis Rflx Y Plasma Lactic Acid Christopher (0.7-2.0) mmol/L Calcium (8.4-10.2) mg/dL Phosphorus (2.5-4.5) mg/dL Magnesium (1.6-2.3) mg/dL Total Bilirubin (0.2-1.3) mg/dL AST (14-36) U/L ALT (4-34) U/L Alkaline Phosphatase (38-126) U/L Troponin I (0.000-0.034) ng/mL NT-Pro-B Natriuret Pep pg/mL Total Protein (6.3-8.2) g/dL Albumin (3.5-5.0) g/dL Acetone, Qual Negative (Negative) 02/26/25 02/26/25 02/26/25 Range/Units 15:35 16:05 16:15 WBC (4.50-10.00) 10*3/uL RBC (4.10-5.20) 10*6/uL Hgb (12.0-15.0) g/dL Hct (37.2-46.3) % MCV (80.0-97.0) fL MCH (27.0-32.0) pg MCHC (32.0-37.0) g/dL Plt Count (140-440) 10*3/uL MPV (9.5-12.2) fL Immature Gran % (Auto) % Neutrophils % % Lymphocytes % % Monocytes % % Eosinophils % % Basophils % % Immature Gran # (0.00-0.04) 10*3/uL Neutrophils # (1.80-7.70) 10*3/uL Lymphocytes # (0.90-5.00) 10*3/uL Monocytes # (0.20-1.00) 10*3/uL Eosinophils # (0.04-0.35) 10*3/uL Basophils # (0.00-0.10) 10*3/uL PT (10.0-12.5) sec INR (<1.2) APTT (22.0-30.0) sec VBG pH (7.31-7.41) VBG pCO2 (37-51) mmHg VBG HCO3 (24-28) mmol/L Sodium 125 L (137-145) mmol/L Potassium 4.6 (3.5-5.1) mmol/L Chloride 85 L (98-107) mmol/L Carbon Dioxide 26 (22-30) mmol/L Anion Gap 14 mmol/L BUN 73 H (7-17) mg/dL Creatinine 5.32 H (0.52-1.04) mg/dL Est GFR (CKD-EPI)AfAm 11 (>60 ml/min/1.73 sqM) Est GFR (CKD-EPI)NonAf 10 (>60 ml/min/1.73 sqM) Glucose 349 H (74-99) mg/dL POC Glucose (mg/dL) 415 H (70-110) mg/dL POC Glu Slip Feeder ID [place] Lactic Ac Sepsis Rflx Plasma Lactic Acid Christopher 2.6 H* (0.7-2.0) mmol/L Calcium (8.4-10.2) mg/dL Phosphorus 4.8 H (2.5-4.5) mg/dL Magnesium (1.6-2.3) mg/dL Total Bilirubin (0.2-1.3) mg/dL AST (14-36) U/L ALT (4-34) U/L Alkaline Phosphatase (38-126) U/L Troponin I (0.000-0.034) ng/mL NT-Pro-B Natriuret Pep pg/mL Total Protein (6.3-8.2) g/dL Albumin (3.5-5.0) g/dL Acetone, Qual (Negative) 02/26/25 Range/Units 16:29 WBC (4.50-10.00) 10*3/uL RBC (4.10-5.20) 10*6/uL Hgb (12.0-15.0) g/dL Hct (37.2-46.3) % MCV (80.0-97.0) fL MCH (27.0-32.0) pg MCHC (32.0-37.0) g/dL Plt Count (140-440) 10*3/uL MPV (9.5-12.2) fL Immature Gran % (Auto) % Neutrophils % % Lymphocytes % % Monocytes % % Eosinophils % % Basophils % % Immature Gran # (0.00-0.04) 10*3/uL Neutrophils # (1.80-7.70) 10*3/uL Lymphocytes # (0.90-5.00) 10*3/uL Monocytes # (0.20-1.00) 10*3/uL Eosinophils # (0.04-0.35) 10*3/uL Basophils # (0.00-0.10) 10*3/uL PT (10.0-12.5) sec INR (<1.2) APTT (22.0-30.0) sec VBG pH (7.31-7.41) VBG pCO2 (37-51) mmHg VBG HCO3 (24-28) mmol/L Sodium (137-145) mmol/L Potassium (3.5-5.1) mmol/L Chloride (98-107) mmol/L Carbon Dioxide (22-30) mmol/L Anion Gap mmol/L BUN (7-17) mg/dL Creatinine (0.52-1.04) mg/dL Est GFR (CKD-EPI)AfAm (>60 ml/min/1.73 sqM) Est GFR (CKD-EPI)NonAf (>60 ml/min/1.73 sqM) Glucose (74-99) mg/dL POC Glucose (mg/dL) 340 H (70-110) mg/dL POC Glu Slip Feeder ID [place] Lactic Ac Sepsis Rflx Plasma Lactic Acid Christopher (0.7-2.0) mmol/L Calcium (8.4-10.2) mg/dL Phosphorus (2.5-4.5) mg/dL Magnesium (1.6-2.3) mg/dL Total Bilirubin (0.2-1.3) mg/dL AST (14-36) U/L ALT (4-34) U/L Alkaline Phosphatase (38-126) U/L Troponin I (0.000-0.034) ng/mL NT-Pro-B Natriuret Pep pg/mL Total Protein (6.3-8.2) g/dL Albumin (3.5-5.0) g/dL Acetone, Qual (Negative) Disposition Clinical Impression: Acute pulmonary edema, Hyperglycemia, Hyponatremia Disposition: ADMITTED IP TO THIS [facility] Time of Disposition: 17:21
[2025-02-26 13:29] LABS: Glucose,Whole Blood 588 mg/dL (70-110)
[2025-02-26] MEDS: FUROSEMIDE 10 MG/ML 4 ML VIAL IV STA ×2 (13:44→17:38)
--- NOTE | 2025-02-26 13:45 | XR ---
EXAMINATION TYPE: XR chest 2V DATE OF EXAM: 02/26/2025 1:41 PM COMPARISON: Chest radiographs from 02/16/2025 TECHNIQUE: XR chest 2V Frontal and lateral views of the chest. CLINICAL INDICATION:Female, 35 years old with history of difficulty breathing; FINDINGS: Lungs/Pleura: Patchy interstitial prominence redemonstrated. No pleural effusion or pneumothorax. No focal consolidation. Heart/mediastinum: Cardiomediastinal silhouette is enlarged and stable. Musculoskeletal: No acute osseous pathology. IMPRESSION: Cardiomegaly with patchy interstitial prominence suggesting CHF exacerbation. Correlate clinically. [facility], , 02/26/2025 1:43 PM
[2025-02-26 14:06] LABS: ALT 112 U/L (4-34); African American GFR (CKD) 12 (>60 ml/min/1.73 sqM); Albumin 4.5 g/dL (3.5-5.0); Anion Gap 18 mmol/L; Blood Urea Nitrogen 74 mg/dL (7-17); Calcium 9.4 mg/dL (8.4-10.2); Carbon Dioxide 25 mmol/L (22-30); Chloride 82 mmol/L (98-107); Non-African American GFR(CKD) 11 (>60 ml/min/1.73 sqM); Sodium 125 mmol/L (137-145)
[2025-02-26 14:09] LABS: Glucose 612 mg/dL (74-99)
[2025-02-26 14:10] LABS: Magnesium 1.7 mg/dL (1.6-2.3); Potassium 5.2 mmol/L (3.5-5.1)
[2025-02-26] MEDS ORDERED: Potassium Replacement Protocol 1 EACH MISC MISCELLANE PRN (14:10)
[2025-02-26] MEDS ORDERED: DEXTROSE 50% SYRINGE 50 ML IVP PRN (14:10)
[2025-02-26] MEDS ORDERED: Magnesium Replacement Protocol 1 EACH MISC MISCELLANE PRN (14:10)
[2025-02-26 14:11] LABS: AST 50 U/L (14-36); Alkaline Phosphatase 211 U/L (38-126)
[2025-02-26] MEDS ORDERED: D5-0.45% NACL WITH KCL 20MEQ/L 1,000 ML IV SCH (14:15)
[2025-02-26] MEDS ORDERED: SODIUM CHLORIDE 0.9% 1,000 ML IV SCH (14:15)
[2025-02-26 14:21] LABS: INR 1.1 (<1.2); Partial Thromboplastin Time 23.1 sec (22.0-30.0); Prothrombin Time 11.7 sec (10.0-12.5)
[2025-02-26 14:22] LABS: Basophils # (A) 0.07 10*3/uL (0.00-0.10); Basophils % (A) 0.6 %; Eosinophils # (A) 0.17 10*3/uL (0.04-0.35); Eosinophils % (A) 1.5 %; HCT 29.5 % (37.2-46.3); Lymphocytes # (A) 0.47 10*3/uL (0.90-5.00); Lymphocytes % (A) 4.2 %; MCH 31.8 pg (27.0-32.0); MCHC 33.9 g/dL (32.0-37.0); MCV 93.9 fL (80.0-97.0); Mean Platelet Volume 11.3 fL (9.5-12.2); Monocytes # (A) 0.25 10*3/uL (0.20-1.00); Monocytes % (A) 2.2 %; Neutrophils # (A) 10.23 10*3/uL (1.80-7.70); Neutrophils % (A) 90.9 %; Platelet Count 259 10*3/uL (140-440); RBC 3.14 10*6/uL (4.10-5.20); RDW 16.7 % (11.5-14.5); WBC 11.26 10*3/uL (4.50-10.00)
[2025-02-26] MEDS: INSULIN REGULAR 100 UNIT in SODIUM CHLORIDE 0.9% 100 ML IV SCH (14:29)
[2025-02-26] MEDS: INSULIN REGULAR BOLUS (FROM DRIP BAG) IV ONE (14:30)
[2025-02-26 14:32] LABS: VBG PH 7.48 (7.31-7.41)
[2025-02-26 14:35] LABS: NT-Pro-B-Type Natriuretic Pept 81100 pg/mL
[2025-02-26 15:37] LABS: Glucose,Whole Blood 415 mg/dL (70-110)
[2025-02-26 16:30] LABS: Glucose,Whole Blood 340 mg/dL (70-110)
[2025-02-26 16:35] LABS: African American GFR (CKD) 11 (>60 ml/min/1.73 sqM); Anion Gap 14 mmol/L; Blood Urea Nitrogen 73 mg/dL (7-17); Carbon Dioxide 26 mmol/L (22-30); Chloride 85 mmol/L (98-107); Glucose 349 mg/dL (74-99); Non-African American GFR(CKD) 10 (>60 ml/min/1.73 sqM); Phosphorus 4.8 mg/dL (2.5-4.5); Potassium 4.6 mmol/L (3.5-5.1); Sodium 125 mmol/L (137-145)
[2025-02-26 17:23] LABS: Glucose,Whole Blood 234 mg/dL (70-110)
--- NOTE | 2025-02-26 19:09 | P.HPIM ---
History of Present Illness H&P Date: 02/26/25 Chief Complaint: Shortness of breath Patient is a 35-year-old female with a past medical history of ESRD on hemodialysis 4 times a week, M TTS with right subclavian permacath awaiting panel and liver transplant , hypertension, diabetes type 2 insulin-dependent, hypothyroidism, diabetic neuropathy, gastroparesis,, anxiety/depression, currently everyday smoker and history of marijuana and methamphetamine use. Patient was recently discharged from the hospital was admitted due to hypertensive emergency and pulmonary edema and fluid overload. Patient presents to ER with complaints of worsening shortness of breath since yesterday. Last hemodialysis was on Wednesday. Also complains of cough and leg swelling. Complains of nausea. No episodes of vomiting. Denies any chest pain or palpitations. No fever no chills. Patient states that she has been taking her insulin regimen as recommended. Chest x-ray showed cardiomegaly with patchy interstitial prominence suggesting CHF exacerbation. Correlate clinically. EKG showed sinus rhythm Laboratory data showed WBC 11.2 hemoglobin 10.0 and platelets 259 sodium 125 potassium 5.2 with slight hemolysis, chloride 82 BUN 74 creatinine 4.96 and blood sugar 612 anion gap 18 and bicarb is 25 lactic acid 2.1 AST 50 ALT 112 alk phos 211 and proBNP 81,109, acetone negative Review of Systems Constitutional: Patient denies any fever or chills . Generalized weakness. No weight loss.. Abdomen: Patient complains of nausea. No vomiting. No diarrhea. No complaints of abdominal pain. Cardiovascular: Patient denies any chest pain. Patient does have short of breath no palpitations. Worsening leg swelling Respiratory: patient cough without sputum production. Positive for shortness of breath Neurologic: Patient denied any numbness or tingling. no headache. Musculoskeletal: Patient denies any complaints of joint swelling or deformity. Skin: Negative Psychiatric: Negative Endocrine: No heat or cold intolerance. No recent weight gain. Genitourinary: No dysuria or hematuria. 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 Past Anesthesia/Blood Transfusion Reactions: Previous Problems w/ Anesthesia Additional Past Anesthesia/Blood Transfusion Reaction / Comment(s): confusion Past Psychological History: Anxiety, Depression Smoking Status: Current every day smoker Past Alcohol Use History: None Reported Past Drug Use History: Marijuana - Past Family History Father History Unknown: Yes Family Medical History: Unable to Obtain Mother History Unknown: Yes Family Medical History: No Reported History Grandfather History Unknown: Yes Family Medical History: Coronary Artery Disease (CAD) Additional Family Medical History / Comment(s): Diabetes mellitus type 2 Medications and Allergies Home Medications Medication Instructions Recorded Confirmed Type Docusate [Colace] 100 mg PO DAILY@0800 02/05/24 02/26/25 History Lidocaine 4% Patch 1 patch TOPICAL DAILY@0800 02/05/24 02/26/25 History Magnesium Hydroxide [Milk of 7,200 mg PO DAILY PRN 02/05/24 02/26/25 History Magnesia Concentrate] Ipratropium-Albuterol Nebulize 3 ml INHALATION RT-TID PRN each 02/14/24 02/26/25 Rx [Duoneb 0.5 mg-3 mg/3 ml Soln] polyethylene glycoL 3350 [Miralax] 17 gm PO AC-LUNCH #527 gm 02/14/24 02/26/25 Rx Acetaminophen [Tylenol] 650 mg PO Q4H PRN 02/18/24 02/26/25 History Biotene Dry Mouth/Throat 10 ml PO BID PRN 02/18/24 02/26/25 History Melatonin 1 mg PO HS tab 02/25/24 02/26/25 Rx Loratadine [Claritin] 5 mg PO DAILY tab 03/30/24 02/26/25 Rx Aspirin 81 mg PO DAILY@0800 #30 tab 05/18/24 02/26/25 Rx Famotidine [Pepcid] 20 mg PO BID #60 tab 07/11/24 02/26/25 Rx Levothyroxine Sodium [Synthroid] 175 mcg PO DAILY@59908/14/24 02/26/25 History Metoclopramide [Reglan] 5 mg PO AC-TID PRN 08/14/24 02/26/25 History Pantoprazole [Protonix] 40 mg PO DAILY@59908/14/24 02/26/25 History Sertraline [Zoloft] 200 mg PO DAILY@79908/14/24 02/26/25 History Colchicine [Colcrys] 0.3 mg PO DAILY #15 each 09/23/24 02/26/25 Rx Ondansetron Odt [Zofran ODT] 4 mg PO Q8HR PRN 11/02/24 02/26/25 History Atorvastatin [Lipitor] 40 mg PO HS #0 11/23/24 02/26/25 Rx oxyCODONE-APAP 10-325MG [Percocet 1 tab PO Q4HR PRN #18 tab 11/23/24 02/26/25 Rx 10-325 mg] Folic Acid/Vit B Complex and C 0.8 mg PO DAILY 12/20/24 02/26/25 History [Davina-Mayte Tablet] traZODone HCL [Desyrel] 50 mg PO HS #20 tab 01/01/25 02/26/25 Rx Isosorbide Mononitrate ER [Imdur] 120 mg PO DAILY #60 tab 01/02/25 02/26/25 Rx NIFEdipine XL [Procardia XL] 60 mg PO BID 30 Days #60 tab 01/02/25 02/26/25 Rx Gabapentin [Neurontin] 100 mg PO BID 30 Days #60 cap 01/03/25 02/26/25 Rx Linagliptin [Tradjenta] 5 mg PO DAILY #30 tab 01/03/25 02/26/25 Rx Insulin Lispro [humaLOG Kwikpen] 8 unit SQ AC-TID 01/22/25 02/26/25 History Insulin Lispro [humaLOG Kwikpen] See Protocol SQ AC-TID 01/22/25 02/26/25 History cloNIDine HCL [Catapres] 0.3 mg PO TID 03/10/25 04/14/25 History Butalb/APAP/Caff 50-325-40Mg 1 tab PO Q4HR PRN #12 tab 01/26/25 02/26/25 Rx [Fioricet 50-325-40] carvediloL [Coreg] 50 mg PO BID #120 tablet 02/15/25 02/26/25 Rx Calcium Acetate [PhosLo] 1,334 mg PO TID-W/MEALS 30 Days 02/19/25 02/26/25 Rx #360 tab Ipratropium-Albuterol Nebulize 3 ml INHALATION RT-TID #100 each 02/19/25 5 Rx [Duoneb 0.5 mg-3 mg/3 ml Soln] ALPRAZolam [Xanax] 0.25 mg PO BID PRN 02/26/25 02/26/25 History Divalproex Sodium [Depakote] 500 mg PO BID@0800,1700 02/26/25 02/26/25 History Insulin Glargine (Lantus) [Lantus 14 unit SQ BID 02/26/25 02/26/25 History Vial] Lidocaine 5% Cream 1 applic TOPICAL MOTUWETHSA 02/26/25 02/26/25 History Methoxy Peg-Epoetin Beta [Mircera] 100 mcg SQ Q14D 02/26/25 02/26/25 History Allergies Allergy/AdvReac Type Severity Reaction Status Date / Time hydromorphone HCl Allergy Anaphylaxis Verified 02/26/25 14:57 [From Dilaudid] propoxyphene Allergy Rash/Hives Verified 02/26/25 14:57 [From Darvocet-N] tramadol Allergy Anaphylaxis Verified 02/26/25 14:57 ibuprofen [From Motrin] AdvReac unable to Verified 02/26/25 14:57 take due to kidney disease venom-honey bee AdvReac passes out Verified 02/26/25 14:57 [bee venom (honey bee)] Physical Exam Vitals: Vital Signs Temp Pulse Resp BP Pulse Ox 02/26/25 16:17 98.6 F 77 18 169/91 95 02/26/25 13:33 20 02/26/25 13:10 97.1 F L 74 20 158/85 96 Intake and Output 02/26/25 02/26/25 02/26/25 06:59 14:59 22:59 Intake Total 23.514 Balance 23.514 Intake: Intake, IV Titration 23.514 Amount Insulin Regular 100 unit 23.514 In Sodium Chloride 0.9% 100 ml @ 0.1 UNITS/KG/HR 7.926 mls/hr IV .[id number] [facility] Rx#:[id number] Other: Weight 78.471 kg PHYSICAL EXAMINATION: Patient is lying in the bed comfortably, no acute distress, awake alert and oriented.. HEENT: Normocephalic. Neck is supple. Pupils reactive. Nostrils clear. Oral cavity is moist. Neck reveals no JVD, carotid bruits, or thyromegaly. CHEST EXAMINATION: Trachea is central. Symmetrical expansion. Bibasilar coarse breath sounds. No wheezing or rhonchi.. CARDIAC: Normal S1, S2 with no gallops. No murmurs ABDOMEN: Soft. Bowel sounds normal. No organomegaly. No abdominal bruits. Extremities: Bilateral lower extremity trace edema. No clubbing or cyanosis Neurologically awake, alert, oriented x3 with well-coordinated movements. No gross focal deficits noted Skin: No rash or skin lesions. Psychiatric: Coperative. Nonsuicidal Musculoskeletal: No joint swelling or deformity. Normal range of motion. Results CBC & Chem 7: 02/26/25 13:31 02/26/25 16:05 Labs: Abnormal Lab Results - Last 24 Hours (Table) 02/26/25 02/26/25 02/26/25 Range/Units 13:17 13:31 13:31 WBC 11.26 H (4.50-10.00) 10*3/uL RBC 3.14 L (4.10-5.20) 10*6/uL Hgb 10.0 L (12.0-15.0) g/dL Hct 29.5 L (37.2-46.3) % Immature Gran # 0.07 H (0.00-0.04) 10*3/uL Neutrophils # 10.23 H (1.80-7.70) 10*3/uL Lymphocytes # 0.47 L (0.90-5.00) 10*3/uL VBG pH (7.31-7.41) VBG pCO2 (37-51) mmHg Sodium 125 L (137-145) mmol/L Potassium 5.2 H (3.5-5.1) mmol/L Chloride 82 L (98-107) mmol/L BUN 74 H (7-17) mg/dL Creatinine 4.96 H (0.52-1.04) mg/dL Glucose 612 H* (74-99) mg/dL POC Glucose (mg/dL) 588 H* (70-110) mg/dL Plasma Lactic Acid Christopher (0.7-2.0) mmol/L Phosphorus (2.5-4.5) mg/dL AST 50 H (14-36) U/L ALT 112 H (4-34) U/L Alkaline Phosphatase 211 H (38-126) U/L 02/26/25 02/26/25 02/26/25 Range/Units 13:31 14:23 15:35 WBC (4.50-10.00) 10*3/uL RBC (4.10-5.20) 10*6/uL Hgb (12.0-15.0) g/dL Hct (37.2-46.3) % Immature Gran # (0.00-0.04) 10*3/uL Neutrophils # (1.80-7.70) 10*3/uL Lymphocytes # (0.90-5.00) 10*3/uL VBG pH 7.48 H (7.31-7.41) VBG pCO2 34 L (37-51) mmHg Sodium (137-145) mmol/L Potassium (3.5-5.1) mmol/L Chloride (98-107) mmol/L BUN (7-17) mg/dL Creatinine (0.52-1.04) mg/dL Glucose (74-99) mg/dL POC Glucose (mg/dL) 415 H (70-110) mg/dL Plasma Lactic Acid Christopher 2.1 H* (0.7-2.0) mmol/L Phosphorus (2.5-4.5) mg/dL AST (14-36) U/L ALT (4-34) U/L Alkaline Phosphatase (38-126) U/L 02/26/25 02/26/25 02/26/25 Range/Units 16:05 16:15 16:29 WBC (4.50-10.00) 10*3/uL RBC (4.10-5.20) 10*6/uL Hgb (12.0-15.0) g/dL Hct (37.2-46.3) % Immature Gran # (0.00-0.04) 10*3/uL Neutrophils # (1.80-7.70) 10*3/uL Lymphocytes # (0.90-5.00) 10*3/uL VBG pH (7.31-7.41) VBG pCO2 (37-51) mmHg Sodium 125 L (137-145) mmol/L Potassium (3.5-5.1) mmol/L Chloride 85 L (98-107) mmol/L BUN 73 H (7-17) mg/dL Creatinine 5.32 H (0.52-1.04) mg/dL Glucose 349 H (74-99) mg/dL POC Glucose (mg/dL) 340 H (70-110) mg/dL Plasma Lactic Acid Christopher 2.6 H* (0.7-2.0) mmol/L Phosphorus 4.8 H (2.5-4.5) mg/dL AST (14-36) U/L ALT (4-34) U/L Alkaline Phosphatase (38-126) U/L / Range/Units 17:22 WBC (4.50-10.00) 10*3/uL RBC (4.10-5.20) 10*6/uL Hgb (12.0-15.0) g/dL Hct (37.2-46.3) % Immature Gran # (0.00-0.04) 10*3/uL Neutrophils # (1.80-7.70) 10*3/uL Lymphocytes # (0.90-5.00) 10*3/uL VBG pH (7.31-7.41) VBG pCO2 (37-51) mmHg Sodium (137-145) mmol/L Potassium (3.5-5.1) mmol/L Chloride (98-107) mmol/L BUN (7-17) mg/dL Creatinine (0.52-1.04) mg/dL Glucose (74-99) mg/dL POC Glucose (mg/dL) 234 H (70-110) mg/dL Plasma Lactic Acid Christopher (0.7-2.0) mmol/L Phosphorus (2.5-4.5) mg/dL AST (14-36) U/L ALT (4-34) U/L Alkaline Phosphatase (38-126) U/L Thrombosis Risk Factor Assmnt - DVT/VTE Prophylaxis DVT/VTE Prophylaxis: Pharmacologic Prophylaxis ordered Assessment and Plan Assessment: Worsening shortness of breath due to acute CHF and fluid overload ESRD on hemodialysis 4 times per week M TTS Hypertension Acute acute on chronic CHF with preserved EF Hyperglycemia with uncontrolled diabetes type 1 Hyperkalemia secondary to CKD History of CVA/TIA with no residual weakness Diabetic gastroparesis and diabetic peripheral neuropathy History of optic neuritis Hypothyroidism DVT prophylaxis heparin subcu Plan: Patient will be continued on telemonitoring. Was given IV Lasix dose. Nephrology was consulted for hemodialysis which is due today. Patient was started on insulin drip for better blood sugar control and started back on insulin regimen. Symptomatic management for nausea. Continue with pain management. Current with home medications and follow-up closely. Time with Patient: Greater than 30
[2025-02-26] MEDS: FUROSEMIDE 10 MG/ML 10 ML VIAL IV SCH (19:24)
[2025-02-26] MEDS: IPRATROPIUM-ALBUTEROL 3 ML NEB INHALATION PRN (20:35)
[2025-02-26 21:05] LABS: African American GFR (CKD) 11 (>60 ml/min/1.73 sqM); Anion Gap 14 mmol/L; Blood Urea Nitrogen 78 mg/dL (7-17); Carbon Dioxide 27 mmol/L (22-30); Chloride 86 mmol/L (98-107); Glucose 129 mg/dL (74-99); Non-African American GFR(CKD) 10 (>60 ml/min/1.73 sqM); Phosphorus 5.2 mg/dL (2.5-4.5); Potassium 4.7 mmol/L (3.5-5.1); Sodium 127 mmol/L (137-145)
[2025-02-26] MEDS: HEPARIN SODIUM,PORCINE 5,000 UNIT/ML 1 ML VIAL SQ SCH (21:42)
[2025-02-26] MEDS: GABAPENTIN 100 MG CAP PO SCH (21:43)
[2025-02-26] MEDS: MELATONIN 1 MG TAB PO SCH (21:43)
[2025-02-26] MEDS: cloNIDine HCL 0.1 MG TAB PO SCH (21:43)
[2025-02-26] MEDS: ATORVASTATIN 40 MG TAB PO SCH (21:43)
[2025-02-26] MEDS: carvediloL 12.5 MG TAB PO SCH (21:43)
[2025-02-26] MEDS: traZODone HCL 50 MG TAB PO SCH (21:43)
[2025-02-26] MEDS: INSULIN GLARGINE (LANTUS) 100 UNIT/ML SYR SQ SCH (21:44)
[2025-02-26] MEDS: oxyCODONE-APAP 10-325MG 1 EACH TAB PO PRN (23:52)
[2025-02-27 00:05] LABS: Glucose,Whole Blood 240 mg/dL (70-110)
[2025-02-27 06:26] LABS: Glucose,Whole Blood 199 mg/dL (70-110)
[2025-02-27 06:52] LABS: Basophils # (A) 0.06 10*3/uL (0.00-0.10); Basophils % (A) 0.6 %; Eosinophils % (A) 4.1 %; HCT 28.3 % (37.2-46.3); HGB 9.6 g/dL (12.0-15.0); Lymphocytes # (A) 0.91 10*3/uL (0.90-5.00); Lymphocytes % (A) 9.4 %; MCH 32.2 pg (27.0-32.0); MCHC 33.9 g/dL (32.0-37.0); Mean Platelet Volume 10.7 fL (9.5-12.2); Monocytes # (A) 0.51 10*3/uL (0.20-1.00); Monocytes % (A) 5.3 %; Neutrophils # (A) 7.76 10*3/uL (1.80-7.70); Neutrophils % (A) 80.2 %; Platelet Count 228 10*3/uL (140-440); RBC 2.98 10*6/uL (4.10-5.20); RDW 16.7 % (11.5-14.5); WBC 9.68 10*3/uL (4.50-10.00)
[2025-02-27] MEDS: PANTOPRAZOLE 40 MG TABLET PO SCH (06:52)
[2025-02-27] MEDS: LEVOTHYROXINE 88 MCG TAB PO SCH (06:52)
[2025-02-27 07:27] LABS: African American GFR (CKD) 15 (>60 ml/min/1.73 sqM); Anion Gap 13 mmol/L; Blood Urea Nitrogen 55 mg/dL (7-17); Calcium 9.1 mg/dL (8.4-10.2); Carbon Dioxide 26 mmol/L (22-30); Chloride 90 mmol/L (98-107); Glucose 189 mg/dL (74-99); Non-African American GFR(CKD) 13 (>60 ml/min/1.73 sqM); Phosphorus 4.4 mg/dL (2.5-4.5); Potassium 4.7 mmol/L (3.5-5.1); Sodium 129 mmol/L (137-145)
[2025-02-27] MEDS: SERTRALINE 100 MG TAB PO SCH (08:27)
[2025-02-27] MEDS: ISOSORBIDE MONONITRATE ER 60 MG TAB.ER.24H PO SCH (08:27)
[2025-02-27] MEDS: ASPIRIN 81 MG PO SCH (08:28)
[2025-02-27] MEDS: FAMOTIDINE 20 MG TAB PO SCH (08:32)
[2025-02-27] MEDS: DIVALPROEX 500 MG TABLET.DR PO SCH (08:32)
[2025-02-27] MEDS: CALCIUM ACETATE 667 MG TAB PO SCH (08:32)
[2025-02-27] MEDS: FOLIC ACID-VIT B COMPLEX-VIT C 1 CAP PO SCH (08:32)
[2025-02-27] MEDS: DOCUSATE 100 MG CAP PO SCH (08:32)
[2025-02-27] MEDS: COLCHICINE 0.6 MG EACH PO SCH (08:34)
[2025-02-27] MEDS: INSULIN LISPRO (HumaLOG) 100 UNIT/ML 10 mL VL SQ SCH (08:37)
[2025-02-27 10:24] LABS: Glucose,Whole Blood 146 mg/dL (70-110)
--- NOTE | 2025-02-27 11:48 | P.NPCON ---
History of Present Illness - Reason for Consult end stage renal disease - History of Present Illness Patient is a 35-year-old female with end-stage renal disease on hemodialysis 4 times a week. Patient is admitted to the hospital with complaints of shortness of breath. She did not miss her treatment on Wednesday. Patient does have history of noncompliance with salt and fluid restriction. She was dialyzed last night with UF of 3 L and is scheduled for hemodialysis again today. No history of fever chills nausea vomiting or abdominal pain Blood sugar was elevated in the 600 range when she first came in. 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 Past Anesthesia/Blood Transfusion Reactions: Previous Problems w/ Anesthesia Additional Past Anesthesia/Blood Transfusion Reaction / Comment(s): confusion Past Psychological History: Anxiety, Depression Smoking Status: Current every day smoker Past Alcohol Use History: None Reported Past Drug Use History: Marijuana - Past Family History Father History Unknown: Yes Family Medical History: Unable to Obtain Mother History Unknown: Yes Family Medical History: No Reported History Grandfather History Unknown: Yes Family Medical History: Coronary Artery Disease (CAD) Additional Family Medical History / Comment(s): Diabetes mellitus type 2 Medications and Allergies Home Medications Medication Instructions Recorded Confirmed Type Docusate [Colace] 100 mg PO DAILY@0800 02/05/24 02/26/25 History Lidocaine 4% Patch 1 patch TOPICAL DAILY@0800 02/05/24 02/26/25 History Magnesium Hydroxide [Milk of 7,200 mg PO DAILY PRN 02/05/24 02/26/25 History Magnesia Concentrate] Ipratropium-Albuterol Nebulize 3 ml INHALATION RT-TID PRN each 02/14/24 02/26/25 Rx [Duoneb 0.5 mg-3 mg/3 ml Soln] polyethylene glycoL 3350 [Miralax] 17 gm PO AC-LUNCH #527 gm 02/14/24 02/26/25 Rx Acetaminophen [Tylenol] 650 mg PO Q4H PRN 02/18/24 02/26/25 History Biotene Dry Mouth/Throat 10 ml PO BID PRN 02/18/24 02/26/25 History Melatonin 1 mg PO HS tab 02/25/24 02/26/25 Rx Loratadine [Claritin] 5 mg PO DAILY tab 03/30/24 02/26/25 Rx Aspirin 81 mg PO DAILY@0800 #30 tab 05/18/24 02/26/25 Rx Famotidine [Pepcid] 20 mg PO BID #60 tab 07/11/24 02/26/25 Rx Levothyroxine Sodium [Synthroid] 175 mcg PO DAILY@0600 08/14/24 02/26/25 History Metoclopramide [Reglan] 5 mg PO AC-TID PRN 08/14/24 02/26/25 History Pantoprazole [Protonix] 40 mg PO DAILY@0600 08/14/24 02/26/25 History Sertraline [Zoloft] 200 mg PO DAILY@0800 08/14/24 02/26/25 History Colchicine [Colcrys] 0.3 mg PO DAILY #15 each 09/23/24 02/26/25 Rx Ondansetron Odt [Zofran ODT] 4 mg PO Q8HR PRN 11/02/24 02/26/25 History Atorvastatin [Lipitor] 40 mg PO HS #0 11/23/24 02/26/25 Rx oxyCODONE-APAP 10-325MG [Percocet 1 tab PO Q4HR PRN #18 tab 11/23/24 02/26/25 Rx 10-325 mg] Folic Acid/Vit B Complex and C 0.8 mg PO DAILY 12/20/24 02/26/25 History [Davina-Mayte Tablet] traZODone HCL [Desyrel] 50 mg PO HS #20 tab 01/01/25 02/26/25 Rx Isosorbide Mononitrate ER [Imdur] 120 mg PO DAILY #60 tab 01/02/25 02/26/25 Rx NIFEdipine XL [Procardia XL] 60 mg PO BID 30 Days #60 tab 01/02/25 02/26/25 Rx Gabapentin [Neurontin] 100 mg PO BID 30 Days #60 cap 01/03/25 02/26/25 Rx Linagliptin [Tradjenta] 5 mg PO DAILY #30 tab 01/03/25 02/26/25 Rx Insulin Lispro [humaLOG Kwikpen] 8 unit SQ AC-TID 01/22/25 02/26/25 History Insulin Lispro [humaLOG Kwikpen] See Protocol SQ AC-TID 01/22/25 02/26/25 History cloNIDine HCL [Catapres] 0.3 mg PO TID 01/22/25 02/26/25 History Butalb/APAP/Caff 50-325-40Mg 1 tab PO Q4HR PRN #12 tab 01/26/25 02/26/25 Rx [Fioricet 50-325-40] carvediloL [Coreg] 50 mg PO BID #120 tablet 02/15/25 02/26/25 Rx Calcium Acetate [PhosLo] 1,334 mg PO TID-W/MEALS 30 Days 02/19/25 02/26/25 Rx #360 tab Ipratropium-Albuterol Nebulize 3 ml INHALATION RT-TID #100 each 02/19/25 02/26/25 Rx [Duoneb 0.5 mg-3 mg/3 ml Soln] ALPRAZolam [Xanax] 0.25 mg PO BID PRN 02/26/25 02/26/25 History Divalproex Sodium [Depakote] 500 mg PO BID@0800,1700 02/26/25 02/26/25 History Insulin Glargine (Lantus) [Lantus 14 unit SQ BID 02/26/25 02/26/25 History Vial] Lidocaine 5% Cream 1 applic TOPICAL MOTUWETHSA 02/26/25 02/26/25 History Methoxy Peg-Epoetin Beta [Mircera] 100 mcg SQ Q14D 02/26/25 02/26/25 History Allergies Allergy/AdvReac Type Severity Reaction Status Date / Time hydromorphone HCl Allergy Anaphylaxis Verified 02/26/25 14:57 [From Dilaudid] propoxyphene Allergy Rash/Hives Verified 02/26/25 14:57 [From Darvocet-N] tramadol Allergy Anaphylaxis Verified 02/26/25 14:57 ibuprofen [From Motrin] AdvReac unable to Verified 02/26/25 14:57 take due to kidney disease venom-honey bee AdvReac passes out Verified 02/26/25 14:57 [bee venom (honey bee)] Physical Exam Vitals: Vital Signs Temp Pulse Pulse Resp BP BP BP 02/27/25 09:07 75 02/27/25 08:57 73 02/27/25 08:55 02/27/25 08:51 98.0 F 74 18 130/80 02/27/25 08:00 74 18 02/27/25 04:02 97.4 F L 70 16 150/87 02/27/25 03:22 97.4 F L 71 18 167/94 02/27/25 01:07 78 18 02/26/25 23:53 98.1 F 78 18 172/97 02/26/25 20:48 76 02/26/25 20:35 75 02/26/25 20:02 97.3 F L 76 19 175/96 02/26/25 20:00 77 19 02/26/25 17:35 98.4 F 77 18 175/96 02/26/25 16:17 98.6 F 77 18 169/91 02/26/25 13:33 20 02/26/25 13:10 97.1 F L 74 20 158/85 Pulse Ox 02/27/25 09:07 02/27/25 08:57 02/27/25 08:55 97 02/27/25 08:51 96 02/27/25 08:00 02/27/25 04:02 02/27/25 03:22 95 02/27/25 01:07 02/26/25 23:53 97 02/26/25 20:48 02/26/25 20:35 02/26/25 20:02 93 L 02/26/25 20:00 02/26/25 17:35 100 02/26/25 16:17 95 02/26/25 13:33 02/26/25 13:10 96 Intake and Output 02/26/25 02/27/25 02/27/25 22:59 06:59 14:59 Intake Total 23.514 3500 Output Total 3500 Balance 23.514 0 Intake: Intake, IV Titration 23.514 Amount Insulin Regular 100 unit 23.514 In Sodium Chloride 0.9% 100 ml @ 0.1 UNITS/KG/HR 7.926 mls/hr IV .[id number] [facility] Rx#:[id number] Hemodialysis 3500 Output: Hemodialysis 500 Hemodialysis Net Amount 3000 Other: Voiding Method Toilet Toilet # Voids 0 0 Weight 78.471 kg 79.4 kg Patient is awake, comfortable, no acute distress Examination of the heart S1 and S2 Examination of the lungs bilateral breath sounds are heard Abdomen is soft nontender Examination of lower extremity shows edema 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 End-stage renal disease on hemodialysis on Wednesday and Wednesday for volume overload. History of noncompliance with salt and fluid rest riction. 2. Volume overload 3. Acute hypoxic respiratory failure 4. 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 CKD mineral bone disorder 6. Pericardial effusion during last admission with positive antihistone antibodies, currently off of hydralazine 7. Hypertension with CKD stage V, mostly volume sensitive. Plan: Repeat hemodialysis today. Discussed salt and fluid restriction Continue current antihypertensive regimen
[2025-02-27 12:08] LABS: Glucose,Whole Blood 116 mg/dL (70-110)
[2025-02-27] MEDS: LIDOCAINE 4% CREAM 5 GM TUBE TOPICAL ONE (12:11)
[2025-02-27] MEDS: polyethylene glycoL 3350 17 GM POWD.PACK PO SCH (12:12)
[2025-02-27 16:08] LABS: Glucose,Whole Blood 70 mg/dL (70-110)
[2025-02-27 20:23] LABS: Glucose,Whole Blood 149 mg/dL (70-110)
[2025-02-27 23:54] LABS: Glucose,Whole Blood 178 mg/dL (70-110)
[2025-02-28 03:59] LABS: Glucose,Whole Blood 117 mg/dL (70-110)
[2025-02-28 06:07] LABS: Glucose,Whole Blood 130 mg/dL (70-110)
[2025-02-28 11:47] LABS: Glucose,Whole Blood 49 mg/dL (70-110)
[2025-02-28 11:59] LABS: Glucose,Whole Blood 63 mg/dL (70-110)
[2025-02-28 12:14] LABS: Glucose,Whole Blood 76 mg/dL (70-110)
--- NOTE | 2025-02-28 13:33 | CDI ---
Date: 02/28/2025 From: Dinora [email or web address] Email: [email or web address] Admit Date: 02/26/2025 05:22:00 PM Patient Name: Marita Perrin Visit Number: [id number] Discharge Date: N/A ATTENTION: The Clinical Documentation Specialists (CDI) and [facility] Coding Staff appreciate your assistance in clarifying documentation. Please respond to the clarification below the line at the bottom and electronically sign. The CDI & [facility] Coding staff will review the response and follow-up if needed. Please note: Queries are made part of the Legal Health Record. If you have any questions, please contact the author of this message via ITS. Dr. Charlene Lim, Acute hypoxic respiratory failure is documented in your Consultation Note on 02/27/2025 - which may lack sufficient clinical evidence/support in the medical record. Additional clarification is requested. Patient history/risk factors: 35-year-old female presented to [facility] ED for evaluation due to progressive shortness of breath, cough, and leg swelling. PMH: ESRD on hemodialysis, hypertension, chronic diastolic heart failure, active tobacco use, type 1 diabetes mellitus Clinical Indicators: Documentation Location: Electronic Medical Record Vital Sign Trend: Date Time Temperature HR RR BP SpO2 02/26/2025 16:17 98.6 F (Oral) 77 18 169/91 95% on Room Air 02/26/2025 17:35 98.4 F (Axillary) 77 18 175/96 100% on 2L NC 02/27/2025 08:51 98.0 F (Oral) 74 18 130/80 96% on 2L NC 02/28/2025 11:21 98.2 F (Oral) 70 18 150/77 96% on 2L NC Oxygen Saturation Trend: Chest X-Ray (02/26/2025): Cardiomegaly with patchy interstitial prominence suggesting CHF exacerbation. Correlate clinically. Respiratory Assessments/Respiratory Effort (02/26/2025, 02/27/2025): Non- Labored; Shortness of Breath with Activity H&P Report (02/26/2025): Bibasilar coarse breath sounds. No wheezing or rhonchiWorsening shortness of breath due to acute CHF and fluid overload Nephrology Consultation Note (02/27/2025): o End-stage renal disease on hemodialysis on Wednesday, , Wednesday, and Wednesday for volume overload. History of noncompliance with salt and fluid restriction o Volume overload o Acute hypoxic respiratory failure Treatment: Supplemental Oxygen via 2 Liters Nasal Cannula Telemetry Monitoring DuoNeb Treatments TID as Needed (Received 2 Treatments to Date) After work up and study, please clarify which diagnosis is most appropriate? [x ] Respiratory failure has been ruled out. Patient had shortness of breath with mild respiratory insufficiency [ ] Acute hypoxic respiratory failure is a valid diagnosis as evidenced by the following: [ ] Unable to determine [ ] Other, please specify MTDD
[2025-02-28 16:07] LABS: Glucose,Whole Blood 146 mg/dL (70-110)
[2025-02-28 20:07] LABS: Glucose,Whole Blood 279 mg/dL (70-110)
--- NOTE | 2025-02-28 21:24 | P.PN ---
Subjective Progress Note Date: 02/27/25 Patient is a 35-year-old female with a past medical history of ESRD on hemodialysis 4 times a week, M TTS with right subclavian permacath awaiting panel and liver transplant , hypertension, diabetes type 2 insulin-dependent, hypothyroidism, diabetic neuropathy, gastroparesis,, anxiety/depression, currently everyday smoker and history of marijuana and methamphetamine use. Patient was recently discharged from the hospital was admitted due to hypertensive emergency and pulmonary edema and fluid overload. Patient presents to ER with complaints of worsening shortness of breath since yesterday. Last hemodialysis was on Wednesday. Also complains of cough and leg swelling. Complains of nausea. No episodes of vomiting. Denies any chest pain or palpitations. No fever no chills. Patient states that she has been taking her insulin regimen as recommended. Chest x-ray showed cardiomegaly with patchy interstitial prominence suggesting CHF exacerbation. Correlate clinically. EKG showed sinus rhythm Laboratory data showed WBC 11.2 hemoglobin 10.0 and platelets 259 sodium 125 potassium 5.2 with slight hemolysis, chloride 82 BUN 74 creatinine 4.96 and blood sugar 612 anion gap 18 and bicarb is 25 lactic acid 2.1 AST 50 ALT 112 alk phos 211 and proBNP 81,109, acetone negative 02/27/2025 Patient is lying in the bed. Awake alert and oriented x 3. No complaints of chest pain. Shortness of breath is improving. Complains of nausea. No cough or sputum production. Patient underwent hemodialysis yesterday and is also scheduled today. No fever no chills. Blood sugar is controlled. Laboratory data showed WBC 9.6 hemoglobin 9.6 and platelets 228 sodium 129 potassium 4.7 chloride 90 bicarb is 26 BUN 55 and creatinine 4.13 and blood sugar 189 and calcium 9.1. Nephrology is on board. Current medications reviewed. Objective - Vital Signs Vital signs: Vital Signs Temp 98.2 F 02/27/25 11:46 Pulse 69 02/27/25 13:29 Resp 18 02/27/25 13:29 BP 135/76 02/27/25 11:46 Pulse Ox 100 02/27/25 11:46 FiO2 Intake & Output 02/26/25 02/27/25 02/27/25 18:59 06:59 18:59 Intake Total 23.514 3500 Output Total 3500 Balance 23.514 0 Weight 78.471 kg 79.4 kg 79.4 kg Intake: Intake, IV Titration 23.514 Amount Insulin Regular 100 unit 23.514 In Sodium Chloride 0.9% 100 ml @ 0.1 UNITS/KG/HR 7.926 mls/hr IV .[id number] [facility] Rx#:[id number] Hemodialysis 3500 Output: Hemodialysis 500 Hemodialysis Net Amount 3000 Other: Voiding Method Toilet Toilet # Voids 0 0 - Exam PHYSICAL EXAMINATION: Patient is lying in the bed comfortably, no acute distress, awake alert and oriented.. HEENT: Normocephalic. Neck is supple. Pupils reactive. Nostrils clear. Oral cavity is moist. Neck reveals no JVD, carotid bruits, or thyromegaly. CHEST EXAMINATION: Trachea is central. Symmetrical expansion. Bibasilar coarse breath sounds. No wheezing or rhonchi.. CARDIAC: Normal S1, S2 with no gallops. No murmurs ABDOMEN: Soft. Bowel sounds normal. No organomegaly. No abdominal bruits. Extremities: Bilateral lower extremity trace edema. No clubbing or cyanosis Neurologically awake, alert, oriented x3 with well-coordinated movements. No gross focal deficits noted Skin: No rash or skin lesions. Psychiatric: Coperative. Nonsuicidal Musculoskeletal: No joint swelling or deformity. Normal range of motion. - Labs CBC & Chem 7: 02/27/25 05:50 02/27/25 05:50 Labs: Abnormal Lab Results - Last 24 Hours (Table) 02/26/25 02/26/25 02/26/25 Range/Units 14:23 15:35 16:05 RBC (4.10-5.20) 10*6/uL Hgb (12.0-15.0) g/dL Hct (37.2-46.3) % MCH (27.0-32.0) pg Neutrophils # (1.80-7.70) 10*3/uL Eosinophils # (0.04-0.35) 10*3/uL VBG pH 7.48 H (7.31-7.41) VBG pCO2 34 L (37-51) mmHg Sodium 125 L (137-145) mmol/L Chloride 85 L (98-107) mmol/L BUN 73 H (7-17) mg/dL Creatinine 5.32 H (0.52-1.04) mg/dL Glucose 349 H (74-99) mg/dL POC Glucose (mg/dL) 415 H (70-110) mg/dL Plasma Lactic Acid Christopher (0.7-2.0) mmol/L Phosphorus 4.8 H (2.5-4.5) mg/dL 02/26/25 02/26/25 02/26/25 Range/Units 16:15 16:29 17:22 RBC (4.10-5.20) 10*6/uL Hgb (12.0-15.0) g/dL Hct (37.2-46.3) % MCH (27.0-32.0) pg Neutrophils # (1.80-7.70) 10*3/uL Eosinophils # (0.04-0.35) 10*3/uL VBG pH (7.31-7.41) VBG pCO2 (37-51) mmHg Sodium (137-145) mmol/L Chloride (98-107) mmol/L BUN (7-17) mg/dL Creatinine (0.52-1.04) mg/dL Glucose (74-99) mg/dL POC Glucose (mg/dL) 340 H 234 H (70-110) mg/dL Plasma Lactic Acid Christopher 2.6 H* (0.7-2.0) mmol/L Phosphorus (2.5-4.5) mg/dL 02/26/25 02/27/25 02/27/25 Range/Units 19:56 00:04 05:50 RBC 2.98 L (4.10-5.20) 10*6/uL Hgb 9.6 L (12.0-15.0) g/dL Hct 28.3 L (37.2-46.3) % MCH 32.2 H (27.0-32.0) pg Neutrophils # 7.76 H (1.80-7.70) 10*3/uL Eosinophils # 0.40 H (0.04-0.35) 10*3/uL VBG pH (7.31-7.41) VBG pCO2 (37-51) mmHg Sodium 127 L (137-145) mmol/L Chloride 86 L (98-107) mmol/L BUN 78 H (7-17) mg/dL Creatinine 5.39 H (0.52-1.04) mg/dL Glucose 129 H (74-99) mg/dL POC Glucose (mg/dL) 240 H (70-110) mg/dL Plasma Lactic Acid Christopher (0.7-2.0) mmol/L Phosphorus 5.2 H (2.5-4.5) mg/dL 02/27/25 02/27/25 02/27/25 Range/Units 05:50 06:25 10:22 RBC (4.10-5.20) 10*6/uL Hgb (12.0-15.0) g/dL Hct (37.2-46.3) % MCH (27.0-32.0) pg Neutrophils # (1.80-7.70) 10*3/uL Eosinophils # (0.04-0.35) 10*3/uL VBG pH (7.31-7.41) VBG pCO2 (37-51) mmHg Sodium 129 L (137-145) mmol/L Chloride 90 L (98-107) mmol/L BUN 55 H (7-17) mg/dL Creatinine 4.13 H (0.52-1.04) mg/dL Glucose 189 H (74-99) mg/dL POC Glucose (mg/dL) 199 H 146 H (70-110) mg/dL Plasma Lactic Acid Christopher (0.7-2.0) mmol/L Phosphorus (2.5-4.5) mg/dL 02/27/25 Range/Units 11:52 RBC (4.10-5.20) 10*6/uL Hgb (12.0-15.0) g/dL Hct (37.2-46.3) % MCH (27.0-32.0) pg Neutrophils # (1.80-7.70) 10*3/uL Eosinophils # (0.04-0.35) 10*3/uL VBG pH (7.31-7.41) VBG pCO2 (37-51) mmHg Sodium (137-145) mmol/L Chloride (98-107) mmol/L BUN (7-17) mg/dL Creatinine (0.52-1.04) mg/dL Glucose (74-99) mg/dL POC Glucose (mg/dL) 116 H (70-110) mg/dL Plasma Lactic Acid Christopher (0.7-2.0) mmol/L Phosphorus (2.5-4.5) mg/dL Assessment and Plan Assessment: Worsening shortness of breath due to acute CHF and fluid overload ESRD on hemodialysis 4 times per week M TTS Hypertension Acute acute on chronic CHF with preserved EF Hyperglycemia with uncontrolled diabetes type 1 Hyperkalemia secondary to CKD History of CVA/TIA with no residual weakness Diabetic gastroparesis and diabetic peripheral neuropathy History of optic neuritis Hypothyroidism DVT prophylaxis heparin subcu Plan: Patient will be continued on telemonitoring. Patient was seen by nephrology and underwent hemodialysis yesterday and is scheduled today again.. Insulin drip has been discontinued and patient was started back on her home regimen and titrate dose.. Symptomatic management for nausea. Continue with pain management. Current with home medications and follow-up closely. Time with Patient: Greater than 30
--- NOTE | 2025-02-28 21:25 | P.PN ---
Subjective Progress Note Date: 02/28/25 Patient is a 35-year-old female with a past medical history of ESRD on hemodialysis 4 times a week, M TTS with right subclavian permacath awaiting panel and liver transplant , hypertension, diabetes type 2 insulin-dependent, hypothyroidism, diabetic neuropathy, gastroparesis,, anxiety/depression, currently everyday smoker and history of marijuana and methamphetamine use. Patient was recently discharged from the hospital was admitted due to hypertensive emergency and pulmonary edema and fluid overload. Patient presents to ER with complaints of worsening shortness of breath since yesterday. Last hemodialysis was on Wednesday. Also complains of cough and leg swelling. Complains of nausea. No episodes of vomiting. Denies any chest pain or palpitations. No fever no chills. Patient states that she has been taking her insulin regimen as recommended. Chest x-ray showed cardiomegaly with patchy interstitial prominence suggesting CHF exacerbation. Correlate clinically. EKG showed sinus rhythm Laboratory data showed WBC 11.2 hemoglobin 10.0 and platelets 259 sodium 125 potassium 5.2 with slight hemolysis, chloride 82 BUN 74 creatinine 4.96 and blood sugar 612 anion gap 18 and bicarb is 25 lactic acid 2.1 AST 50 ALT 112 alk phos 211 and proBNP 81,109, acetone negative 02/27/2025 Patient is lying in the bed. Awake alert and oriented x 3. No complaints of chest pain. Shortness of breath is improving. Complains of nausea. No cough or sputum production. Patient underwent hemodialysis yesterday and is also scheduled today. No fever no chills. Blood sugar is controlled. Laboratory data showed WBC 9.6 hemoglobin 9.6 and platelets 228 sodium 129 potassium 4.7 chloride 90 bicarb is 26 BUN 55 and creatinine 4.13 and blood sugar 189 and calcium 9.1. Nephrology is on board. 02/28/2025 Patient is resting in the bed. Awake alert and oriented x 3. No complaints of chest pain. Shortness of breath is much improved. Able to tolerate oral diet. No cough or sputum production. Blood pressure is also improved. Patient is requiring 2 L oxygen via nasal cannula. CBG went down to 49 around 1130 which is improved now. Hemodialysis tomorrow. Current medications reviewed. Objective - Vital Signs Vital signs: Vital Signs Temp 97.6 F 02/28/25 19:57 Pulse 69 02/28/25 20:33 Resp 16 02/28/25 19:57 BP 119/66 02/28/25 19:57 Pulse Ox 99 02/28/25 15:19 FiO2 Intake & Output 02/28/25 02/28/25 03/01/25 06:59 18:59 06:59 Intake Total 1020 1317 400 Output Total 0 5400 Balance 1020 1317 -5000 Weight 75.8 kg 75.8 kg Intake: Oral 1020 1317 Hemodialysis 400 Output: Urine 0 Hemodialysis 2900 Hemodialysis Net Amount 2500 Other: Voiding Method Toilet Toilet # Voids 1 - Exam PHYSICAL EXAMINATION: Patient is lying in the bed comfortably, no acute distress, awake alert and oriented.. HEENT: Normocephalic. Neck is supple. Pupils reactive. Nostrils clear. Oral cavity is moist. Neck reveals no JVD, carotid bruits, or thyromegaly. CHEST EXAMINATION: Trachea is central. Symmetrical expansion. Clear to auscultation bilaterally. No wheezing or rhonchi nonlabored breathing. CARDIAC: Normal S1, S2 with no gallops. No murmurs ABDOMEN: Soft. Bowel sounds normal. No organomegaly. No abdominal bruits. Extremities: Bilateral lower extremity trace edema. No clubbing or cyanosis Neurologically awake, alert, oriented x3 with well-coordinated movements. No gr oss focal deficits noted Skin: No rash or skin lesions. Psychiatric: Coperative. Nonsuicidal Musculoskeletal: No joint swelling or deformity. Normal range of motion. - Labs CBC & Chem 7: 02/27/25 05:50 02/27/25 05:50 Labs: Abnormal Lab Results - Last 24 Hours (Table) 02/27/25 02/28/25 02/28/25 Range/Units 23:52 03:57 06:06 POC Glucose (mg/dL) 178 H 117 H 130 H (70-110) mg/dL 02/28/25 02/28/25 02/28/25 Range/Units 11:40 11:55 16:03 POC Glucose (mg/dL) 49 L* 63 L 146 H (70-110) mg/dL 02/28/25 Range/Units 20:06 POC Glucose (mg/dL) 279 H (70-110) mg/dL Assessment and Plan Assessment: Worsening shortness of breath due to acute CHF and fluid overload ESRD on hemodialysis 4 times per week M TTS Hypertension Acute acute on chronic CHF with preserved EF Hyperglycemia with uncontrolled diabetes type 1 Hyperkalemia secondary to CKD History of CVA/TIA with no residual weakness Diabetic gastroparesis and diabetic peripheral neuropathy History of optic neuritis Hypothyroidism DVT prophylaxis heparin subcu Plan: Patient will be continued on telemonitoring. Patient was seen by nephrology and underwent hemodialysis as per schedule... Insulin drip has been discontinued and patient was started back on her home regimen and titrate dose.. Patient has hypoglycemic episode today. Symptomatic management for nausea. Continue with pain management. Current with home medications and follow-up closely. Time with Patient: Greater than 30
--- NOTE | 2025-02-28 22:54 | P.PN ---
Subjective Patient is seen for follow-up for end-stage renal disease. Status post hemodialysis yesterday with 4.5 L Complaining of shortness of breath and leg and arm swelling. Overall volume status has improved since admission. Objective - Vital Signs Vital signs: Vital Signs Temp 97.6 F 02/28/25 19:57 Pulse 69 02/28/25 20:33 Resp 16 02/28/25 19:57 BP 119/66 02/28/25 19:57 Pulse Ox 98 02/28/25 19:55 FiO2 Intake & Output 02/28/25 02/28/25 03/01/25 06:59 18:59 06:59 Intake Total 1020 1317 400 Output Total 0 5400 Balance 1020 1317 -5000 Weight 75.8 kg 75.8 kg Intake: Oral 1020 1317 Hemodialysis 400 Output: Urine 0 Hemodialysis 2900 Hemodialysis Net Amount 2500 Other: Voiding Method Toilet Toilet Toilet # Voids 1 - Exam Patient is awake, comfortable, no acute distress Examination of the heart S1 and S2 Examination of the lungs bilateral breath sounds are heard, basal crackles Abdomen is soft nontender Examination of lower extremities shows edema 2+ bilaterally - Labs CBC & Chem 7: 02/27/25 05:50 02/27/25 05:50 Labs: Abnormal Lab Results - Last 24 Hours (Table) 02/27/25 02/28/25 02/28/25 Range/Units 23:52 03:57 06:06 POC Glucose (mg/dL) 178 H 117 H 130 H (70-110) mg/dL 02/28/25 02/28/25 02/28/25 Range/Units 11:40 11:55 16:03 POC Glucose (mg/dL) 49 L* 63 L 146 H (70-110) mg/dL 02/28/25 Range/Units 20:06 POC Glucose (mg/dL) 279 H (70-110) mg/dL Assessment and Plan Assessment: 1. End-stage renal disease on hemodialysis on Wednesday and Wednesday for volume overload. History of noncompliance with salt and fluid restriction. 2. Volume overload 3. Acute hypoxic respiratory failure 4. 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 CKD mineral bone disorder 6. Pericardial effusion during last admission with positive antihistone antibodies, currently off of hydralazine 7. Hypertension with CKD stage V, mostly volume sensitive. Plan: Repeat hemodialysis today and in a.m. Discussed salt and fluid restriction Continue current antihypertensive regimen
[2025-03-01 00:06] LABS: Glucose,Whole Blood 289 mg/dL (70-110)
[2025-03-01 04:11] LABS: Glucose,Whole Blood 249 mg/dL (70-110)
[2025-03-01 06:44] LABS: African American GFR (CKD) 10 (>60 ml/min/1.73 sqM); Anion Gap 10 mmol/L; Blood Urea Nitrogen 45 mg/dL (7-17); Carbon Dioxide 28 mmol/L (22-30); Chloride 91 mmol/L (98-107); Glucose 250 mg/dL (74-99); Non-African American GFR(CKD) 9 (>60 ml/min/1.73 sqM); Phosphorus 4.9 mg/dL (2.5-4.5); Potassium 4.9 mmol/L (3.5-5.1); Sodium 129 mmol/L (137-145)
[2025-03-01 06:52] LABS: Basophils # (A) 0.04 10*3/uL (0.00-0.10); Basophils % (A) 0.6 %; Eosinophils # (A) 0.55 10*3/uL (0.04-0.35); Eosinophils % (A) 7.9 %; HGB 8.4 g/dL (12.0-15.0); Lymphocytes # (A) 0.62 10*3/uL (0.90-5.00); Lymphocytes % (A) 8.9 %; MCH 32.1 pg (27.0-32.0); MCHC 32.3 g/dL (32.0-37.0); MCV 99.2 fL (80.0-97.0); Mean Platelet Volume 10.9 fL (9.5-12.2); Monocytes # (A) 0.66 10*3/uL (0.20-1.00); Monocytes % (A) 9.4 %; Neutrophils # (A) 5.07 10*3/uL (1.80-7.70); Neutrophils % (A) 72.3 %; Platelet Count 214 10*3/uL (140-440); RBC 2.62 10*6/uL (4.10-5.20); RDW 16.9 % (11.5-14.5)
[2025-03-01 08:22] LABS: Glucose,Whole Blood 310 mg/dL (70-110)
[2025-03-01 11:51] LABS: Glucose,Whole Blood 281 mg/dL (70-110)
[2025-03-01 11:51] LABS: Influenza A Not Detected (Not Detectd); Influenza B Not Detected (Not Detectd); RSV Not Detected (Not Detectd)
[2025-03-01] MEDS: LIDOCAINE-PRILOCAINE 2.5-2.5% CREAM 5 GM TUBE TOPICAL STA (12:16)
--- NOTE | 2025-03-01 12:25 | P.PN ---
Subjective Patient is seen for follow-up for end-stage renal disease. Status post hemodialysis yesterday with 2.5 L of UF. Scheduled for hemodialysis again today Leg swelling and shortness of breath has improved. Objective - Vital Signs Vital signs: Vital Signs Temp 97.4 F L 03/01/25 11:10 Pulse 68 03/01/25 11:10 Resp 14 03/01/25 11:10 BP 136/78 03/01/25 11:10 Pulse Ox 98 03/01/25 11:10 FiO2 Intake & Output 02/28/25 03/01/25 03/01/25 18:59 06:59 18:59 Intake Total 1317 400 480 Output Total 0 5400 480 Balance 1317 -5000 0 Weight 75.8 kg 79 kg Intake: Oral 1317 480 Hemodialysis 400 Output: Urine 0 480 Hemodialysis 2900 Hemodialysis Net Amount 2500 Other: Voiding Method Toilet Toilet Toilet - Exam Patient is awake, comfortable, no acute distress Examination of the heart S1 and S2 Examination of the lungs bilateral breath sounds are heard, basal crackles Abdomen is soft nontender Examination of lower extremities shows edema 1+ bilaterally - Labs CBC & Chem 7: 03/01/25 06:08 03/01/25 06:08 Labs: Abnormal Lab Results - Last 24 Hours (Table) 02/28/25 02/28/25 03/01/25 Range/Units 16:03 20:06 00:04 RBC (4.10-5.20) 10*6/uL Hgb (12.0-15.0) g/dL Hct (37.2-46.3) % MCV (80.0-97.0) fL MCH (27.0-32.0) pg Immature Gran # (0.00-0.04) 10*3/uL Lymphocytes # (0.90-5.00) 10*3/uL Eosinophils # (0.04-0.35) 10*3/uL Sodium (137-145) mmol/L Chloride (98-107) mmol/L BUN (7-17) mg/dL Creatinine (0.52-1.04) mg/dL Glucose (74-99) mg/dL POC Glucose (mg/dL) 146 H 279 H 289 H (70-110) mg/dL Phosphorus (2.5-4.5) mg/dL 04/03/01/25 03/01/25 Range/Units 04:09 06:08 06:08 RBC 2.62 L (4.10-5.20) 10*6/uL Hgb 8.4 L (12.0-15.0) g/dL Hct 26.0 L (37.2-46.3) % MCV 99.2 H (80.0-97.0) fL MCH 32.1 H (27.0-32.0) pg Immature Gran # 0.06 H (0.00-0.04) 10*3/uL Lymphocytes # 0.62 L (0.90-5.00) 10*3/uL Eosinophils # 0.55 H (0.04-0.35) 10*3/uL Sodium 129 L (137-145) mmol/L Chloride 91 L (98-107) mmol/L BUN 45 H (7-17) mg/dL Creatinine 5.66 H (0.52-1.04) mg/dL Glucose 250 H (74-99) mg/dL POC Glucose (mg/dL) 249 H (70-110) mg/dL Phosphorus 4.9 H (2.5-4.5) mg/dL 03/01/25 03/01/25 Range/Units 08:20 11:50 RBC (4.10-5.20) 10*6/uL Hgb (12.0-15.0) g/dL Hct (37.2-46.3) % MCV (80.0-97.0) fL MCH (27.0-32.0) pg Immature Gran # (0.00-0.04) 10*3/uL Lymphocytes # (0.90-5.00) 10*3/uL Eosinophils # (0.04-0.35) 10*3/uL Sodium (137-145) mmol/L Chloride (98-107) mmol/L BUN (7-17) mg/dL Creatinine (0.52-1.04) mg/dL Glucose (74-99) mg/dL POC Glucose (mg/dL) 310 H 281 H (70-110) mg/dL Phosphorus (2.5-4.5) mg/dL Assessment and Plan Assessment: 1. End-stage renal disease on hemodialysis on Wednesday and Wednesday for volume overload. History of noncompliance with salt and fluid restriction. 2. Volume overload 3. Acute hypoxic respiratory failure 4. 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 CKD mineral bone disorder 6. Pericardial effusion during last admission with positive antihistone antibodies, currently off of hydralazine 7. Hypertension with CKD stage V, mostly volume sensitive. Plan: Repeat hemodialysis today Discussed salt and fluid restriction Continue current antihypertensive regimen
[2025-03-01 15:33] LABS: Glucose,Whole Blood 237 mg/dL (70-110)
[2025-03-01 19:51] LABS: Glucose,Whole Blood 272 mg/dL (70-110)
[2025-03-02 00:01] LABS: Glucose,Whole Blood 336 mg/dL (70-110)
[2025-03-02 04:12] LABS: Glucose,Whole Blood 393 mg/dL (70-110)
[2025-03-02 06:09] LABS: Glucose,Whole Blood 380 mg/dL (70-110)
[2025-03-02 07:00] LABS: HGB 8.6 g/dL (12.0-15.0); MCH 32.6 pg (27.0-32.0); MCHC 33.1 g/dL (32.0-37.0); MCV 98.5 fL (80.0-97.0); Mean Platelet Volume 10.8 fL (9.5-12.2); Platelet Count 208 10*3/uL (140-440); RBC 2.64 10*6/uL (4.10-5.20); RDW 16.6 % (11.5-14.5); WBC 7.88 10*3/uL (4.50-10.00)
[2025-03-02 07:13] LABS: African American GFR (CKD) 16 (>60 ml/min/1.73 sqM); Anion Gap 10 mmol/L; Blood Urea Nitrogen 41 mg/dL (7-17); Calcium 8.8 mg/dL (8.4-10.2); Carbon Dioxide 23 mmol/L (22-30); Chloride 95 mmol/L (98-107); Glucose 380 mg/dL (74-99); Non-African American GFR(CKD) 14 (>60 ml/min/1.73 sqM); Potassium 5.4 mmol/L (3.5-5.1); Sodium 128 mmol/L (137-145)
--- NOTE | 2025-03-02 08:07 | XR ---
EXAMINATION TYPE: XR chest 1V DATE OF EXAM: 03/02/2025 6:37 AM COMPARISON: Multiple radiographs, with the most recent on 02/26/2025 TECHNIQUE: XR chest 1V Frontal view of the chest. CLINICAL INDICATION:Female, 35 years old with history of CHF; FINDINGS: Lungs/Pleura: There is no evidence of pleural effusion, focal consolidation, or pneumothorax. Pulmonary vascularity: Decreased pulmonary vascular congestion from prior exam. Heart/mediastinum: Cardiomediastinal silhouette is enlarged and stable. Musculoskeletal: No acute osseous pathology. IMPRESSION: Cardiomegaly with decreased pulmonary vascular congestion from prior exam. [facility], , 03/02/2025 8:04 AM
--- NOTE | 2025-03-02 10:55 | P.PN ---
Subjective Progress Note Date: 03/01/25 Patient is a 35-year-old female with a past medical history of ESRD on hemodialysis 4 times a week, M TTS with right subclavian permacath awaiting panel and liver transplant , hypertension, diabetes type 2 insulin-dependent, hypothyroidism, diabetic neuropathy, gastroparesis,, anxiety/depression, currently everyday smoker and history of marijuana and methamphetamine use. Patient was recently discharged from the hospital was admitted due to hypertensive emergency and pulmonary edema and fluid overload. Patient presents to ER with complaints of worsening shortness of breath since yesterday. Last hemodialysis was on Wednesday. Also complains of cough and leg swelling. Complains of nausea. No episodes of vomiting. Denies any chest pain or palpitations. No fever no chills. Patient states that she has been taking her insulin regimen as recommended. Chest x-ray showed cardiomegaly with patchy interstitial prominence suggesting CHF exacerbation. Correlate clinically. EKG showed sinus rhythm Laboratory data showed WBC 11.2 hemoglobin 10.0 and platelets 259 sodium 125 potassium 5.2 with slight hemolysis, chloride 82 BUN 74 creatinine 4.96 and blood sugar 612 anion gap 18 and bicarb is 25 lactic acid 2.1 AST 50 ALT 112 alk phos 211 and proBNP 81,109, acetone negative 02/27/2025 Patient is lying in the bed. Awake alert and oriented x 3. No complaints of chest pain. Shortness of breath is improving. Complains of nausea. No cough or sputum production. Patient underwent hemodialysis yesterday and is also scheduled today. No fever no chills. Blood sugar is controlled. Laboratory data showed WBC 9.6 hemoglobin 9.6 and platelets 228 sodium 129 potassium 4.7 chloride 90 bicarb is 26 BUN 55 and creatinine 4.13 and blood sugar 189 and calcium 9.1. Nephrology is on board. 02/28/2025 Patient is resting in the bed. Awake alert and oriented x 3. No complaints of chest pain. Shortness of breath is much improved. Able to tolerate oral diet. No cough or sputum production. Blood pressure is also improved. Patient is requiring 2 L oxygen via nasal cannula. CBG went down to 49 around 1130 which is improved now. Hemodialysis tomorrow. 03/01/2025 Patient is lying in the bed. Awake alert and oriented x 3. Complains of significant cough and whitish to brownish sputum production. Also complains of nausea. Patient did have hemodialysis yesterday with 2.5 L of ultrafiltration. Again scheduled today. No complaints of chest pain. Shortness of breath is better. Patient has been afebrile. Laboratory data reviewed. Current medications reviewed. Objective - Vital Signs Vital signs: Vital Signs Temp 97.3 F L 03/01/25 19:31 Pulse 74 03/01/25 19:31 Resp 16 03/01/25 19:31 BP 130/73 03/01/25 19:31 Pulse Ox 99 03/01/25 19:31 FiO2 Intake & Output 03/01/25 03/01/25 03/02/25 06:59 18:59 06:59 Intake Total 400 2200 240 Output Total 5400 8880 Balance -5000 -6680 240 Weight 79 kg Intake: Oral 1800 240 Hemodialysis 400 400 Output: Urine 480 Hemodialysis 2900 4400 Hemodialysis Net Amount 2500 4000 Other: Voiding Method Toilet Toilet Toilet - Exam PHYSICAL EXAMINATION: Patient is lying in the bed comfortably, no acute distress, awake alert and oriented.. HEENT: Normocephalic. Neck is supple. Pupils reactive. Nostrils clear. Oral cavity is moist. Neck reveals no JVD, carotid bruits, or thyromegaly. CHEST EXAMINATION: Trachea is central. Symmetrical expansion. Clear to auscultation bilaterally. No wheezing or rhonchi nonlabored breathing. CARDIAC: Normal S1, S2 with no gallops. No murmurs ABDOMEN: Soft. Bowel sounds normal. No organomegaly. No abdominal bruits. Extremities: Bilateral lower extremity trace edema. No clubbing or cyanosis Neurologically awake, alert, oriented x3 with well-coordinated movements. No gross focal deficits noted Skin: No rash or skin lesions. Psychiatric: Coperative. Nonsuicidal Musculoskeletal: No joint swelling or deformity. Normal range of motion. - Labs CBC & Chem 7: 03/02/25 06:15 03/02/25 06:15 Labs: Abnormal Lab Results - Last 24 Hours (Table) 03/01/25 03/01/25 03/01/25 Range/Units 00:04 04:09 06:08 RBC 2.62 L (4.10-5.20) 10*6/uL Hgb 8.4 L (12.0-15.0) g/dL Hct 26.0 L (37.2-46.3) % MCV 99.2 H (80.0-97.0) fL MCH 32.1 H (27.0-32.0) pg Immature Gran # 0.06 H (0.00-0.04) 10*3/uL Lymphocytes # 0.62 L (0.90-5.00) 10*3/uL Eosinophils # 0.55 H (0.04-0.35) 10*3/uL Sodium (137-145) mmol/L Chloride (98-107) mmol/L BUN (7-17) mg/dL Creatinine (0.52-1.04) mg/dL Glucose (74-99) mg/dL POC Glucose (mg/dL) 289 H 249 H (70-110) mg/dL Phosphorus (2.5-4.5) mg/dL 03/01/25 03/01/25 03/01/25 Range/Units 06:08 08:20 11:50 RBC (4.10-5.20) 10*6/uL Hgb (12.0-15.0) g/dL Hct (37.2-46.3) % MCV (80.0-97.0) fL MCH (27.0-32.0) pg Immature Gran # (0.00-0.04) 10*3/uL Lymphocytes # (0.90-5.00) 10*3/uL Eosinophils # (0.04-0.35) 10*3/uL Sodium 129 L (137-145) mmol/L Chloride 91 L (98-107) mmol/L BUN 45 H (7-17) mg/dL Creatinine 5.66 H (0.52-1.04) mg/dL Glucose 250 H (74-99) mg/dL POC Glucose (mg/dL) 310 H 281 H (70-110) mg/dL Phosphorus 4.9 H (2.5-4.5) mg/dL 03/01/25 03/01/25 Range/Units 15:31 19:50 RBC (4.10-5.20) 10*6/uL Hgb (12.0-15.0) g/dL Hct (37.2-46.3) % MCV (80.0-97.0) fL MCH (27.0-32.0) pg Immature Gran # (0.00-0.04) 10*3/uL Lymphocytes # (0.90-5.00) 10*3/uL Eosinophils # (0.04-0.35) 10*3/uL Sodium (137-145) mmol/L Chloride (98-107) mmol/L BUN (7-17) mg/dL Creatinine (0.52-1.04) mg/dL Glucose (74-99) mg/dL POC Glucose (mg/dL) 237 H 272 H (70-110) mg/dL Phosphorus (2.5-4.5) mg/dL Assessment and Plan Assessment: Worsening shortness of breath due to acute CHF and fluid overload ESRD on hemodialysis 4 times per week M TTS Hypertension Acute acute on chronic CHF with preserved EF Hyperglycemia with uncontrolled diabetes type 1 Hyperkalemia secondary to CKD History of CVA/TIA with no residual weakness Diabetic gastroparesis and diabetic peripheral neuropathy History of optic neuritis Hypothyroidism DVT prophylaxis heparin subcu Plan: Patient will be continued on telemonitoring. Patient was seen by nephrology and undergoing hemodialysis on daily basis. Insulin drip has been discontinued and patient was started back on her home regimen and titrate dose.. Continue to monitor for hypoglycemic episodes.. Symptomatic management for nausea. Follow-up repeat chest x-ray tomorrow. Continue with pain management. Current with home medications and follow-up closely. Time with Patient: Greater than 30
[2025-03-02 11:59] LABS: Glucose,Whole Blood 299 mg/dL (70-110)
[2025-03-02] MEDS: SODIUM ZIRCONIUM CYCLOSILICATE 10 GM PACKET PO ONE (18:01)
[2025-03-02 18:04] LABS: Glucose,Whole Blood 317 mg/dL (70-110)
--- NOTE | 2025-03-02 18:07 | P.PN ---
Subjective Patient is seen for follow-up for end-stage renal disease. Status post hemodialysis yesterday with 4.0 L of UF. Scheduled for hemodialysis again tomorrow Leg swelling and shortness of breath has improved but persists. Objective - Vital Signs Vital signs: Vital Signs Temp 98.2 F 03/02/25 15:18 Pulse 68 03/02/25 15:18 Resp 14 03/02/25 15:18 BP 148/78 03/02/25 15:18 Pulse Ox 96 03/02/25 15:18 FiO2 Intake & Output 03/01/25 03/02/25 03/02/25 18:59 06:59 18:59 Intake Total 2200 240 720 Output Total 8880 Balance -6680 240 720 Weight 79.2 kg Intake: Oral 1800 240 720 Hemodialysis 400 Output: Urine 480 Hemodialysis 4400 Hemodialysis Net Amount 4000 Other: Voiding Method Toilet Toilet Toilet # Voids 0 - Exam Patient is awake, comfortable, no acute distress Examination of the heart S1 and S2 Examination of the lungs bilateral breath sounds are heard, basal crackles Abdomen is soft nontender Examination of lower extremities shows edema 1+ bilaterally - Labs CBC & Chem 7: 03/02/25 06:15 03/02/25 16:23 Labs: Abnormal Lab Results - Last 24 Hours (Table) 03/01/25 03/02/25 03/02/25 Range/Units 19:50 00:00 04:10 RBC (4.10-5.20) 10*6/uL Hgb (12.0-15.0) g/dL Hct (37.2-46.3) % MCV (80.0-97.0) fL MCH (27.0-32.0) pg Sodium (137-145) mmol/L Potassium (3.5-5.1) mmol/L Chloride (98-107) mmol/L BUN (7-17) mg/dL Creatinine (0.52-1.04) mg/dL Glucose (74-99) mg/dL POC Glucose (mg/dL) 272 H 336 H 393 H (70-110) mg/dL 03/02/25 03/02/25 03/02/25 Range/Units 06:07 06:15 06:15 RBC 2.64 L (4.10-5.20) 10*6/uL Hgb 8.6 L (12.0-15.0) g/dL Hct 26.0 L (37.2-46.3) % MCV 98.5 H (80.0-97.0) fL MCH 32.6 H (27.0-32.0) pg Sodium 128 L (137-145) mmol/L Potassium 5.4 H (3.5-5.1) mmol/L Chloride 95 L (98-107) mmol/L BUN 41 H (7-17) mg/dL Creatinine 3.99 H (0.52-1.04) mg/dL Glucose 380 H (74-99) mg/dL POC Glucose (mg/dL) 380 H (70-110) mg/dL 03/02/25 03/02/25 03/02/25 Range/Units 11:57 16:23 18:03 RBC (4.10-5.20) 10*6/uL Hgb (12.0-15.0) g/dL Hct (37.2-46.3) % MCV (80.0-97.0) fL MCH (27.0-32.0) pg Sodium (137-145) mmol/L Potassium 5.4 H (3.5-5.1) mmol/L Chloride (98-107) mmol/L BUN (7-17) mg/dL Creatinine (0.52-1.04) mg/dL Glucose (74-99) mg/dL POC Glucose (mg/dL) 299 H 317 H (70-110) mg/dL Assessment and Plan Assessment: 1. End-stage renal disease on hemodialysis on Wednesday and Wednesday for volume overload. History of noncompliance with salt and fluid restriction. 2. Volume overload 3. Dyspnea associated with volume overload 4. 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 CKD mineral bone disorder 6. Pericardial effusion during last admission with positive antihistone antibodies, currently off of hydralazine 7. Hypertension with CKD stage V, mostly volume sensitive. Plan: Repeat hemodialysis in a.m. Discussed salt and fluid restriction Continue current antihypertensive regimen
[2025-03-02 20:10] LABS: Glucose,Whole Blood 255 mg/dL (70-110)
[2025-03-03] MEDS: ONDANSETRON ODT 4 MG TAB PO PRN (02:48)
[2025-03-03 05:56] LABS: Glucose,Whole Blood 207 mg/dL (70-110)
[2025-03-03 06:26] LABS: Basophils # (A) 0.04 10*3/uL (0.00-0.10); Basophils % (A) 0.3 %; Eosinophils # (A) 0.82 10*3/uL (0.04-0.35); Eosinophils % (A) 6.5 %; HCT 26.4 % (37.2-46.3); HGB 8.5 g/dL (12.0-15.0); Lymphocytes # (A) 0.74 10*3/uL (0.90-5.00); Lymphocytes % (A) 5.9 %; MCH 31.8 pg (27.0-32.0); MCHC 32.2 g/dL (32.0-37.0); MCV 98.9 fL (80.0-97.0); Mean Platelet Volume 10.3 fL (9.5-12.2); Monocytes # (A) 0.55 10*3/uL (0.20-1.00); Monocytes % (A) 4.4 %; Neutrophils # (A) 10.36 10*3/uL (1.80-7.70); Neutrophils % (A) 82.4 %; Platelet Count 239 10*3/uL (140-440); RBC 2.67 10*6/uL (4.10-5.20); RDW 16.6 % (11.5-14.5); WBC 12.57 10*3/uL (4.50-10.00)
[2025-03-03 06:55] LABS: African American GFR (CKD) 11 (>60 ml/min/1.73 sqM); Anion Gap 13 mmol/L; Blood Urea Nitrogen 57 mg/dL (7-17); Carbon Dioxide 25 mmol/L (22-30); Chloride 93 mmol/L (98-107); Glucose 206 mg/dL (74-99); Non-African American GFR(CKD) 9 (>60 ml/min/1.73 sqM); Phosphorus 5.4 mg/dL (2.5-4.5); Potassium 5.7 mmol/L (3.5-5.1); Sodium 131 mmol/L (137-145)
[2025-03-03] MEDS: SODIUM ZIRCONIUM CYCLOSILICATE 10 GM PACKET PO ONE (07:56)
--- NOTE | 2025-03-03 09:53 | P.PN ---
Subjective Patient is seen in follow-up for end-stage renal disease. Scheduled for dialysis today. Hemodynamically stable. Feels congested. Vital signs are stable. General: No acute distress. HEENT: Head exam is unremarkable. On nasal cannula. LUNGS: Scattered rhonchi. HEART: Rate and Rhythm are regular. ABDOMEN: Nontender. EXTREMITITES: 2+ edema. Objective - Vital Signs Vital signs: Vital Signs Temp 97.6 F 03/03/25 07:48 Pulse 67 03/03/25 07:48 Resp 14 03/03/25 07:48 BP 120/68 03/03/25 07:48 Pulse Ox 100 03/03/25 07:48 FiO2 Intake & Output 03/02/25 03/03/25 03/03/25 18:59 06:59 18:59 Intake Total 720 480 Balance 720 480 Weight 79.3 kg Intake: Oral 720 480 Other: Voiding Method Toilet Toilet # Voids 0 0 - Labs CBC & Chem 7: 03/03/25 05:50 03/03/25 05:50 Labs: Abnormal Lab Results - Last 24 Hours (Table) 03/02/25 03/02/25 03/02/25 Range/Units 11:57 16:23 18:03 WBC (4.50-10.00) 10*3/uL RBC (4.10-5.20) 10*6/uL Hgb (12.0-15.0) g/dL Hct (37.2-46.3) % MCV (80.0-97.0) fL Immature Gran # (0.00-0.04) 10*3/uL Neutrophils # (1.80-7.70) 10*3/uL Lymphocytes # (0.90-5.00) 10*3/uL Eosinophils # (0.04-0.35) 10*3/uL Sodium (137-145) mmol/L Potassium 5.4 H (3.5-5.1) mmol/L Chloride (98-107) mmol/L BUN (7-17) mg/dL Creatinine (0.52-1.04) mg/dL Glucose (74-99) mg/dL POC Glucose (mg/dL) 299 H 317 H (70-110) mg/dL Phosphorus (2.5-4.5) mg/dL 03/02/25 03/03/2503/03/25 Range/Units 20:09 05:50 05:50 WBC 12.57 H (4.50-10.00) 10*3/uL RBC 2.67 L (4.10-5.20) 10*6/uL Hgb 8.5 L (12.0-15.0) g/dL Hct 26.4 L (37.2-46.3) % MCV 98.9 H (80.0-97.0) fL Immature Gran # 0.06 H (0.00-0.04) 10*3/uL Neutrophils # 10.36 H (1.80-7.70) 10*3/uL Lymphocytes # 0.74 L (0.90-5.00) 10*3/uL Eosinophils # 0.82 H (0.04-0.35) 10*3/uL Sodium 131 L (137-145) mmol/L Potassium 5.7 H (3.5-5.1) mmol/L Chloride 93 L (98-107) mmol/L BUN 57 H (7-17) mg/dL Creatinine 5.45 H (0.52-1.04) mg/dL Glucose 206 H (74-99) mg/dL POC Glucose (mg/dL) 255 H (70-110) mg/dL Phosphorus 5.4 H (2.5-4.5) mg/dL 03/03/25 Range/Units 05:54 WBC (4.50-10.00) 10*3/uL RBC (4.10-5.20) 10*6/uL Hgb (12.0-15.0) g/dL Hct (37.2-46.3) % MCV (80.0-97.0) fL Immature Gran # (0.00-0.04) 10*3/uL Neutrophils # (1.80-7.70) 10*3/uL Lymphocytes # (0.90-5.00) 10*3/uL Eosinophils # (0.04-0.35) 10*3/uL Sodium (137-145) mmol/L Potassium (3.5-5.1) mmol/L Chloride (98-107) mmol/L BUN (7-17) mg/dL Creatinine (0.52-1.04) mg/dL Glucose (74-99) mg/dL POC Glucose (mg/dL) 207 H (70-110) mg/dL Phosphorus (2.5-4.5) mg/dL Assessment and Plan Plan: Assessment: 1. End-stage renal disease maintained on hemodialysis on Wednesday. 2. Volume overload. 3. Hyperkalemia secondary to chronic kidney disease. 4. Anemia of chronic kidney disease. 5. Hypertension with chronic kidney disease. Stable. 6. Chronic kidney disease mineral bone disease. On PhosLo. 7. History of pericardial effusion maintained on colchicine. Plan: Hemodialysis today. Challenge ultrafiltration. Advised patient to maintain low-salt diet and fluid restriction of less than 50 ounces per day upon discharge. Add Aranesp.
[2025-03-03 12:09] LABS: Glucose,Whole Blood 132 mg/dL (70-110)
[2025-03-03] MEDS: DARBEPOETIN ALFA 40 MCG/0.4 ML SYRINGE SQ SCH (15:52)
[2025-03-03 16:59] LABS: Glucose,Whole Blood 218 mg/dL (70-110)
[2025-03-03] MEDS: ALPRAZolam 0.25 MG TAB PO PRN (18:01)
--- NOTE | 2025-03-03 19:50 | P.PN ---
Subjective Progress Note Date: 03/02/25 Patient is a 35-year-old female with a past medical history of ESRD on hemodialysis 4 times a week, M TTS with right subclavian permacath awaiting panel and liver transplant , hypertension, diabetes type 2 insulin-dependent, hypothyroidism, diabetic neuropathy, gastroparesis,, anxiety/depression, currently everyday smoker and history of marijuana and methamphetamine use. Patient was recently discharged from the hospital was admitted due to hypertensive emergency and pulmonary edema and fluid overload. Patient presents to ER with complaints of worsening shortness of breath since yesterday. Last hemodialysis was on Wednesday. Also complains of cough and leg swelling. Complains of nausea. No episodes of vomiting. Denies any chest pain or palpitations. No fever no chills. Patient states that she has been taking her insulin regimen as recommended. Chest x-ray showed cardiomegaly with patchy interstitial prominence suggesting CHF exacerbation. Correlate clinically. EKG showed sinus rhythm Laboratory data showed WBC 11.2 hemoglobin 10.0 and platelets 259 sodium 125 potassium 5.2 with slight hemolysis, chloride 82 BUN 74 creatinine 4.96 and blood sugar 612 anion gap 18 and bicarb is 25 lactic acid 2.1 AST 50 ALT 112 alk phos 211 and proBNP 81,109, acetone negative 02/27/2025 Patient is lying in the bed. Awake alert and oriented x 3. No complaints of chest pain. Shortness of breath is improving. Complains of nausea. No cough or sputum production. Patient underwent hemodialysis yesterday and is also scheduled today. No fever no chills. Blood sugar is controlled. Laboratory data showed WBC 9.6 hemoglobin 9.6 and platelets 228 sodium 129 potassium 4.7 chloride 90 bicarb is 26 BUN 55 and creatinine 4.13 and blood sugar 189 and calcium 9.1. Nephrology is on board. 02/28/2025 Patient is resting in the bed. Awake alert and oriented x 3. No complaints of chest pain. Shortness of breath is much improved. Able to tolerate oral diet. No cough or sputum production. Blood pressure is also improved. Patient is requiring 2 L oxygen via nasal cannula. CBG went down to 49 around 1130 which is improved now. Hemodialysis tomorrow. 03/01/2025 Patient is lying in the bed. Awake alert and oriented x 3. Complains of significant cough and whitish to brownish sputum production. Also complains of nausea. Patient did have hemodialysis yesterday with 2.5 L of ultrafiltration. Again scheduled today. No complaints of chest pain. Shortness of breath is better. Patient has been afebrile. Laboratory data reviewed. 03/02/2025 Patient is lying in the bed awake alert and oriented x 3. She complains of cough and shortness of breath. Patient underwent hemodialysis yesterday and next hemodialysis session tomorrow. No complaints of chest pain. Patient has been afebrile. Repeat chest x-ray showed improvement in pulmonary vascular congestion. Patient is tolerating oral diet. Lab data reviewed. Current medications reviewed. Objective - Vital Signs Vital signs: Vital Signs Temp 98.2 F 03/02/25 19:52 Pulse 71 03/02/25 19:52 Resp 18 03/02/25 19:52 BP 154/78 03/02/25 19:52 Pulse Ox 100 03/02/25 19:52 FiO2 Intake & Output 03/02/25 03/02/25 03/03/25 06:59 18:59 06:59 Intake Total 240 720 480 Balance 240 720 480 Weight 79.2 kg Intake: Oral 240 720 480 Other: Voiding Method Toilet Toilet # Voids 0 - Exam PHYSICAL EXAMINATION: Patient is lying in the bed comfortably, no acute distress, awake alert and oriented.. HEENT: Normocephalic. Neck is supple. Pupils reactive. Nostrils clear. Oral cavity is moist. Neck reveals no JVD, carotid bruits, or thyromegaly. CHEST EXAMINATION: Trachea is central. Symmetrical expansion. Clear to auscultation bilaterally. No wheezing or rhonchi nonlabored breathing. CARDIAC: Normal S1, S2 with no gallops. No murmurs ABDOMEN: Soft. Bowel sounds normal. No organomegaly. No abdominal bruits. Extremities: Bilateral lower extremity trace edema. No clubbing or cyanosis Neurologically awake, alert, oriented x3 with well-coordinated movements. No gross focal deficits noted Skin: No rash or skin lesions. Psychiatric: Coperative. Nonsuicidal Musculoskeletal: No joint swelling or deformity. Normal range of motion. - Labs CBC & Chem 7: 03/03/25 05:50 03/03/25 05:50 Labs: Abnormal Lab Results - Last 24 Hours (Table) 03/02/25 03/02/25 03/02/25 Range/Units 00:00 04:10 06:07 RBC (4.10-5.20) 10*6/uL Hgb (12.0-15.0) g/dL Hct (37.2-46.3) % MCV (80.0-97.0) fL MCH (27.0-32.0) pg Sodium (137-145) mmol/L Potassium (3.5-5.1) mmol/L Chloride (98-107) mmol/L BUN (7-17) mg/dL Creatinine (0.52-1.04) mg/dL Glucose (74-99) mg/dL POC Glucose (mg/dL) 336 H 393 H 380 H (70-110) mg/dL 03/02/25 03/02/25 03/02/25 Range/Units 06:15 06:15 11:57 RBC 2.64 L (4.10-5.20) 10*6/uL Hgb 8.6 L (12.0-15.0) g/dL Hct 26.0 L (37.2-46.3) % MCV 98.5 H (80.0-97.0) fL MCH 32.6 H (27.0-32.0) pg Sodium 128 L (137-145) mmol/L Potassium 5.4 H (3.5-5.1) mmol/L Chloride 95 L (98-107) mmol/L BUN 41 H (7-17) mg/dL Creatinine 3.99 H (0.52-1.04) mg/dL Glucose 380 H (74-99) mg/dL POC Glucose (mg/dL) 299 H (70-110) mg/dL 03/02/25 03/02/25 03/02/25 Range/Units 16:23 18:03 20:09 RBC (4.10-5.20) 10*6/uL Hgb (12.0-15.0) g/dL Hct (37.2-46.3) % MCV (80.0-97.0) fL MCH (27.0-32.0) pg Sodium (137-145) mmol/L Potassium 5.4 H (3.5-5.1) mmol/L Chloride (98-107) mmol/L BUN (7-17) mg/dL Creatinine (0.52-1.04) mg/dL Glucose (74-99) mg/dL POC Glucose (mg/dL) 317 H 255 H (70-110) mg/dL Assessment and Plan Assessment: Worsening shortness of breath due to acute CHF and fluid overload ESRD on hemodialysis 4 times per week M TTS Hypertension Acute acute on chronic CHF with preserved EF Hyperglycemia with uncontrolled diabetes type 1 Hyperkalemia secondary to CKD History of CVA/TIA with no residual weakness Diabetic gastroparesis and diabetic peripheral neuropathy History of optic neuritis Hypothyroidism DVT prophylaxis heparin subcu Plan: Patient will be continued on telemonitoring. Patient was seen by nephrology and undergoing hemodialysis on daily basis. Next hemodialysis tomorrow Insulin drip has been discontinued and patient was started back on her home regimen and titrate dose.. Continue to monitor for hypoglycemic episodes.. Symptomatic management for nausea. Follow-up repeat chest x-ray tomorrow. Continue with pain management. Current with home medications and follow-up closely. Time with Patient: Greater than 30
--- NOTE | 2025-03-03 19:51 | P.PN ---
Subjective Progress Note Date: 03/03/25 Patient is a 35-year-old female with a past medical history of ESRD on hemodialysis 4 times a week, M TTS with right subclavian permacath awaiting panel and liver transplant , hypertension, diabetes type 2 insulin-dependent, hypothyroidism, diabetic neuropathy, gastroparesis,, anxiety/depression, currently everyday smoker and history of marijuana and methamphetamine use. Patient was recently discharged from the hospital was admitted due to hypertensive emergency and pulmonary edema and fluid overload. Patient presents to ER with complaints of worsening shortness of breath since yesterday. Last hemodialysis was on Wednesday. Also complains of cough and leg swelling. Complains of nausea. No episodes of vomiting. Denies any chest pain or palpitations. No fever no chills. Patient states that she has been taking her insulin regimen as recommended. Chest x-ray showed cardiomegaly with patchy interstitial prominence suggesting CHF exacerbation. Correlate clinically. EKG showed sinus rhythm Laboratory data showed WBC 11.2 hemoglobin 10.0 and platelets 259 sodium 125 potassium 5.2 with slight hemolysis, chloride 82 BUN 74 creatinine 4.96 and blood sugar 612 anion gap 18 and bicarb is 25 lactic acid 2.1 AST 50 ALT 112 alk phos 211 and proBNP 81,109, acetone negative 02/27/2025 Patient is lying in the bed. Awake alert and oriented x 3. No complaints of chest pain. Shortness of breath is improving. Complains of nausea. No cough or sputum production. Patient underwent hemodialysis yesterday and is also scheduled today. No fever no chills. Blood sugar is controlled. Laboratory data showed WBC 9.6 hemoglobin 9.6 and platelets 228 sodium 129 potassium 4.7 chloride 90 bicarb is 26 BUN 55 and creatinine 4.13 and blood sugar 189 and calcium 9.1. Nephrology is on board. 02/28/2025 Patient is resting in the bed. Awake alert and oriented x 3. No complaints of chest pain. Shortness of breath is much improved. Able to tolerate oral diet. No cough or sputum production. Blood pressure is also improved. Patient is requiring 2 L oxygen via nasal cannula. CBG went down to 49 around 1130 which is improved now. Hemodialysis tomorrow. 03/01/2025 Patient is lying in the bed. Awake alert and oriented x 3. Complains of significant cough and whitish to brownish sputum production. Also complains of nausea. Patient did have hemodialysis yesterday with 2.5 L of ultrafiltration. Again scheduled today. No complaints of chest pain. Shortness of breath is better. Patient has been afebrile. Laboratory data reviewed. 03/02/2025 Patient is lying in the bed awake alert and oriented x 3. She complains of cough and shortness of breath. Patient underwent hemodialysis yesterday and next hemodialysis session tomorrow. No complaints of chest pain. Patient has been afebrile. Repeat chest x-ray showed improvement in pulmonary vascular congestion. Patient is tolerating oral diet. Lab data reviewed. 03/03/2025 Patient is lying in the bed. Awake alert and oriented. Patient states that she was nauseous this morning. Also complains of shortness of breath still. No e pisodes of vomiting. No fever no chills. Patient is undergoing hemodialysis today. Lab data showed WBC 12.5 hemoglobin 8.5 and platelets 239 sodium 131 potassium 5.7 chloride 93 bicarb is 25 BUN 57 and creatinine 5.45 and blood sugar 207. Phosphorus 5.4. Nephrology is on board. Current medications reviewed. Objective - Vital Signs Vital signs: Vital Signs Temp 98.4 F 03/03/25 15:46 Pulse 73 03/03/25 15:46 Resp 14 03/03/25 15:46 BP 149/74 03/03/25 15:46 Pulse Ox 99 03/03/25 15:46 FiO2 Intake & Output 03/03/25 03/03/25 03/04/25 06:59 18:59 06:59 Intake Total 480 880 Output Total 9400 Balance 480 -8520 Weight 79.3 kg Intake: Oral 480 480 Hemodialysis 400 Output: Hemodialysis 4900 Hemodialysis Net Amount 4500 Other: Voiding Method Toilet Toilet # Voids 0 0 - Exam PHYSICAL EXAMINATION: Patient is lying in the bed comfortably, no acute distress, awake alert and oriented.. HEENT: Normocephalic. Neck is supple. Pupils reactive. Nostrils clear. Oral cavity is moist. Neck reveals no JVD, carotid bruits, or thyromegaly. CHEST EXAMINATION: Trachea is central. Symmetrical expansion. Clear to auscultation bilaterally. No wheezing or rhonchi nonlabored breathing. CARDIAC: Normal S1, S2 with no gallops. No murmurs ABDOMEN: Soft. Bowel sounds normal. No organomegaly. No abdominal bruits. Extremities: Bilateral lower extremity trace edema. No clubbing or cyanosis Neurologically awake, alert, oriented x3 with well-coordinated movements. No gross focal deficits noted Skin: No rash or skin lesions. Psychiatric: Coperative. Nonsuicidal Musculoskeletal: No joint swelling or deformity. Normal range of motion. - Labs CBC & Chem 7: 03/03/25 05:50 03/03/25 05:50 Labs: Abnormal Lab Results - Last 24 Hours (Table) 03/02/25 03/03/25 03/03/25 Range/Units 20:09 05:50 05:50 WBC 12.57 H (4.50-10.00) 10*3/uL RBC 2.67 L (4.10-5.20) 10*6/uL Hgb 8.5 L (12.0-15.0) g/dL Hct 26.4 L (37.2-46.3) % MCV 98.9 H (80.0-97.0) fL Immature Gran # 0.06 H (0.00-0.04) 10*3/uL Neutrophils # 10.36 H (1.80-7.70) 10*3/uL Lymphocytes # 0.74 L (0.90-5.00) 10*3/uL Eosinophils # 0.82 H (0.04-0.35) 10*3/uL Sodium 131 L (137-145) mmol/L Potassium 5.7 H (3.5-5.1) mmol/L Chloride 93 L (98-107) mmol/L BUN 57 H (7-17) mg/dL Creatinine 5.45 H (0.52-1.04) mg/dL Glucose 206 H (74-99) mg/dL POC Glucose (mg/dL) 255 H (70-110) mg/dL Phosphorus 5.4 H (2.5-4.5) mg/dL 03/03/25 03/03/25 03/03/25 Range/Units 05:54 11:56 16:27 WBC (4.50-10.00) 10*3/uL RBC (4.10-5.20) 10*6/uL Hgb (12.0-15.0) g/dL Hct (37.2-46.3) % MCV (80.0-97.0) fL Immature Gran # (0.00-0.04) 10*3/uL Neutrophils # (1.80-7.70) 10*3/uL Lymphocytes # (0.90-5.00) 10*3/uL Eosinophils # (0.04-0.35) 10*3/uL Sodium (137-145) mmol/L Potassium (3.5-5.1) mmol/L Chloride (98-107) mmol/L BUN (7-17) mg/dL Creatinine (0.52-1.04) mg/dL Glucose (74-99) mg/dL POC Glucose (mg/dL) 207 H 132 H 218 H (70-110) mg/dL Phosphorus (2.5-4.5) mg/dL Assessment and Plan Assessment: Worsening shortness of breath due to acute CHF and fluid overload ESRD on hemodialysis 4 times per week M TTS Hypertension Acute acute on chronic CHF with preserved EF Hyperglycemia with uncontrolled diabetes type 1 Hyperkalemia secondary to CKD History of CVA/TIA with no residual weakness Diabetic gastroparesis and diabetic peripheral neuropathy History of optic neuritis Hypothyroidism DVT prophylaxis heparin subcu Plan: Patient will be continued on telemonitoring. Patient was seen by nephrology and undergoing hemodialysis on daily basis. Patient is undergoing hemodialysis today. Insulin drip has been discontinued and patient was started back on her home regimen and titrate dose.. Continue to monitor for hypoglycemic episodes.. Symptomatic management for nausea. Follow-up repeat chest x-ray tomorrow. Continue with pain management. Current with home medications and follow-up closely. Time with Patient: Greater than 30
[2025-03-03 19:52] LABS: Glucose,Whole Blood 329 mg/dL (70-110)
[2025-03-04 05:53] LABS: Glucose,Whole Blood 158 mg/dL (70-110)
[2025-03-04 07:44] LABS: Basophils # (A) 0.06 10*3/uL (0.00-0.10); Basophils % (A) 0.7 %; Eosinophils # (A) 0.75 10*3/uL (0.04-0.35); Eosinophils % (A) 9.1 %; HCT 27.6 % (37.2-46.3); HGB 8.9 g/dL (12.0-15.0); Lymphocytes % (A) 12.2 %; MCH 32.2 pg (27.0-32.0); MCHC 32.2 g/dL (32.0-37.0); Mean Platelet Volume 10.4 fL (9.5-12.2); Monocytes # (A) 0.51 10*3/uL (0.20-1.00); Monocytes % (A) 6.2 %; Neutrophils # (A) 5.85 10*3/uL (1.80-7.70); Neutrophils % (A) 71.4 %; Platelet Count 240 10*3/uL (140-440); RBC 2.76 10*6/uL (4.10-5.20); RDW 16.3 % (11.5-14.5)
[2025-03-04 08:04] LABS: African American GFR (CKD) 15 (>60 ml/min/1.73 sqM); Anion Gap 11 mmol/L; Blood Urea Nitrogen 37 mg/dL (7-17); Calcium 8.9 mg/dL (8.4-10.2); Carbon Dioxide 26 mmol/L (22-30); Chloride 96 mmol/L (98-107); Glucose 130 mg/dL (74-99); Non-African American GFR(CKD) 13 (>60 ml/min/1.73 sqM); Potassium 4.9 mmol/L (3.5-5.1); Sodium 133 mmol/L (137-145)
--- NOTE | 2025-03-04 10:55 | P.PN ---
Subjective Patient is seen in follow-up for end-stage renal disease. Tolerated 4.5 L ultrafiltration yesterday. Hemodynamically stable. Dyspnea better. Left upper extremity swollen. Vital signs are stable. General: No acute distress. HEENT: Head exam is unremarkable. On nasal cannula. LUNGS: Scattered rhonchi. HEART: Rate and Rhythm are regular. ABDOMEN: Nontender. EXTREMITITES: 2+ edema in lower extremities. Left upper extremity swollen. Objective - Vital Signs Vital signs: Vital Signs Temp 97.5 F L 03/04/25 08:40 Pulse 68 03/04/25 08:40 Resp 17 03/04/25 08:40 BP 115/83 03/04/25 08:40 Pulse Ox 100 03/04/25 08:40 FiO2 Intake & Output 03/03/25 03/04/25 03/04/25 18:59 06:59 18:59 Intake Total 880 360 Output Total 9400 Balance -8520 360 Weight 79.9 kg Intake: Oral 480 360 Hemodialysis 400 Output: Hemodialysis 4900 Hemodialysis Net Amount 4500 Other: Voiding Method Toilet Toilet Toilet # Voids 0 1 - Labs CBC & Chem 7: 03/04/25 06:52 03/04/25 06:52 Labs: Abnormal Lab Results - Last 24 Hours (Table) 03/03/25 03/03/25 03/03/25 Range/Units 11:56 16:27 19:50 RBC (4.10-5.20) 10*6/uL Hgb (12.0-15.0) g/dL Hct (37.2-46.3) % MCV (80.0-97.0) fL MCH (27.0-32.0) pg Eosinophils # (0.04-0.35) 10*3/uL Sodium (137-145) mmol/L Chloride (98-107) mmol/L BUN (7-17) mg/dL Creatinine (0.52-1.04) mg/dL Glucose (74-99) mg/dL POC Glucose (mg/dL) 132 H 218 H 329 H (70-110) mg/dL 03/04/25 03/04/25 03/04/25 Range/Units 05:52 06:52 06:52 RBC 2.76 L (4.10-5.20) 10*6/uL Hgb 8.9 L (12.0-15.0) g/dL Hct 27.6 L (37.2-46.3) % MCV 100.0 H (80.0-97.0) fL MCH 32.2 H (27.0-32.0) pg Eosinophils # 0.75 H (0.04-0.35) 10*3/uL Sodium 133 L (137-145) mmol/L Chloride 96 L (98-107) mmol/L BUN 37 H (7-17) mg/dL Creatinine 4.10 H (0.52-1.04) mg/dL Glucose 130 H (74-99) mg/dL POC Glucose (mg/dL) 158 H (70-110) mg/dL Assessment and Plan Plan: Assessment: 1. End-stage renal disease maintained on hemodialysis on Wednesday. 2. Volume overload. 3. Hyperkalemia secondary to chronic kidney disease. 4. Anemia of chronic kidney disease. On Aranesp. 5. Hypertension with chronic kidney disease. Stable. 6. Chronic kidney disease mineral bone disease. On PhosLo. 7. History of pericardial effusion maintained on colchicine. Plan: Hemodialysis tomorrow. Advised patient to maintain low-salt diet and fluid restriction of less than 50 ounces per day upon discharge. Check left upper extremity ultrasound. Vascular surgery also consulted.
--- NOTE | 2025-03-04 11:18 | US ---
EXAMINATION TYPE: US venous doppler duplex UE LT DATE OF EXAM: 03/04/2025 COMPARISON: US(02/16/2025) CLINICAL INDICATION: Female, 35 years old with history of left arm swelling, fistula site.; pt had di alysis done yesterday on graft in left arm, pt noticed swelling and tenderness this morning surroundi ng fistula site, no hx of DVT, pt is not currently on blood thinners TECHNIQUE: Grayscale, color Doppler and spectral Doppler imaging of the upper extremity. SIDE PERFORMED: Left VESSELS IMAGED: IJV Subclavian Vein Axilla Vein Brachial Vein(s) Radial Paired Veins Ulnar Paired Veins Cephalic Vein* Basilic Vein* (*superficial vessels) FINDINGS: Left Arm: appears negative for DVT Left forearm AOC fistula site scanned: Dialysis graft appears patent edema surrounding AOC Left forearm Left Radial & Ulnar vs: very limited, best images obtained Grayscale, color doppler, spectral doppler imaging performed of the deep veins of the upper extremiti es. IMPRESSION: No evidence for DVT. Patent dialysis graft. [facility], Workstation: GAVIN 03/04/2025 11:16 AM
[2025-03-04 11:43] LABS: Glucose,Whole Blood 100 mg/dL (70-110)
[2025-03-04 16:39] LABS: Glucose,Whole Blood 65 mg/dL (70-110)
[2025-03-04 16:39] LABS: Glucose,Whole Blood 61 mg/dL (70-110)
[2025-03-04 17:07] LABS: Glucose,Whole Blood 71 mg/dL (70-110)
[2025-03-04 19:55] LABS: Glucose,Whole Blood 166 mg/dL (70-110)
[2025-03-05 06:18] LABS: Glucose,Whole Blood 82 mg/dL (70-110)
[2025-03-05 07:11] LABS: African American GFR (CKD) 12 (>60 ml/min/1.73 sqM); Anion Gap 11 mmol/L; Blood Urea Nitrogen 55 mg/dL (7-17); Calcium 9.3 mg/dL (8.4-10.2); Carbon Dioxide 24 mmol/L (22-30); Chloride 97 mmol/L (98-107); Glucose 67 mg/dL (74-99); Non-African American GFR(CKD) 11 (>60 ml/min/1.73 sqM); Potassium 5.9 mmol/L (3.5-5.1); Sodium 132 mmol/L (137-145)
[2025-03-05 08:08] LABS: Basophils # (A) 0.07 10*3/uL (0.00-0.10); Basophils % (A) 0.9 %; Eosinophils # (A) 0.73 10*3/uL (0.04-0.35); HCT 26.1 % (37.2-46.3); HGB 8.6 g/dL (12.0-15.0); Lymphocytes # (A) 1.24 10*3/uL (0.90-5.00); Lymphocytes % (A) 15.3 %; MCH 32.2 pg (27.0-32.0); MCV 97.8 fL (80.0-97.0); Mean Platelet Volume 10.9 fL (9.5-12.2); Monocytes # (A) 0.83 10*3/uL (0.20-1.00); Monocytes % (A) 10.2 %; Neutrophils # (A) 5.15 10*3/uL (1.80-7.70); Neutrophils % (A) 63.5 %; Platelet Count 213 10*3/uL (140-440); RBC 2.67 10*6/uL (4.10-5.20); RDW 16.4 % (11.5-14.5); WBC 8.11 10*3/uL (4.50-10.00)
--- NOTE | 2025-03-05 10:26 | P.PN ---
Subjective Patient is seen in follow-up for end-stage renal disease. Scheduled for dialysis today. Hemodynamically stable. Vital signs are stable. General: No acute distress. HEENT: Head exam is unremarkable. On nasal cannula. LUNGS: Scattered rhonchi. HEART: Rate and Rhythm are regular. ABDOMEN: Nontender. EXTREMITITES: 2+ edema in lower extremities. Left upper extremity swollen. Objective - Vital Signs Vital signs: Vital Signs Temp 97.3 F L 03/05/25 08:59 Pulse 72 03/05/25 09:00 Resp 16 03/05/25 09:00 BP 157/82 03/05/25 08:59 Pulse Ox 100 03/05/25 08:59 FiO2 Intake & Output 03/04/25 03/05/25 03/05/25 18:59 06:59 18:59 Intake Total 800 250 370 Output Total 0 Balance 800 250 370 Weight 79.5 kg Intake: IV 10 Invasive Line 1 10 Oral 800 250 360 Output: Urine 0 Other: Voiding Method Toilet Toilet Toilet - Labs CBC & Chem 7: 03/05/25 06:13 03/05/25 06:13 Labs: Abnormal Lab Results - Last 24 Hours (Table) 03/04/25 03/04/25 03/04/25 Range/Units 16:35 16:36 19:53 RBC (4.10-5.20) 10*6/uL Hgb (12.0-15.0) g/dL Hct (37.2-46.3) % MCV (80.0-97.0) fL MCH (27.0-32.0) pg Immature Gran # (0.00-0.04) 10*3/uL Eosinophils # (0.04-0.35) 10*3/uL Sodium (137-145) mmol/L Potassium (3.5-5.1) mmol/L Chloride (98-107) mmol/L BUN (7-17) mg/dL Creatinine (0.52-1.04) mg/dL Glucose (74-99) mg/dL POC Glucose (mg/dL) 65 L 61 L 166 H (70-110) mg/dL 03/05/25 03/05/25 Range/Units 06:13 06:13 RBC 2.67 L (4.10-5.20) 10*6/uL Hgb 8.6 L (12.0-15.0) g/dL Hct 26.1 L (37.2-46.3) % MCV 97.8 H (80.0-97.0) fL MCH 32.2 H (27.0-32.0) pg Immature Gran # 0.09 H (0.00-0.04) 10*3/uL Eosinophils # 0.73 H (0.04-0.35) 10*3/uL Sodium 132 L (137-145) mmol/L Potassium 5.9 H (3.5-5.1) mmol/L Chloride 97 L (98-107) mmol/L BUN 55 H (7-17) mg/dL Creatinine 4.98 H (0.52-1.04) mg/dL Glucose 67 L (74-99) mg/dL POC Glucose (mg/dL) (70-110) mg/dL Assessment and Plan Plan: Assessment: 1. End-stage renal disease maintained on hemodialysis on Wednesday. 2. Volume overload. 3. Hyperkalemia secondary to chronic kidney disease. Expect improvement postdialysis. 4. Anemia of chronic kidney disease. On Aranesp. 5. Hypertension with chronic kidney disease. Stable. 6. Chronic kidney disease mineral bone disease. On PhosLo. 7. History of pericardial effusion maintained on colchicine. Plan: Hemodialysis today and tomorrow. Challenge ultrafiltration. Advised patient to maintain low-salt diet and fluid restriction of less than 50 ounces per day upon discharge. Also advised her to maintain a low potassium diet. Vascular surgery eval pending due to left upper extremity swelling. Ultrasound negative.
--- NOTE | 2025-03-05 10:44 | P.GSCN ---
History of Present Illness Consult date: 03/05/25 Reason for Consult: Left arm swelling, fistula Requesting physician: Gary Andrade History of present illness: This is a pleasant 35-year-old female with a history of left upper extremity loop AV graft creation with ongoing left upper extremity swelling, end-stage renal disease on hemodialysis, seizure disorder, gastroparesis, diabetes mellitus, thyroid disorder, who had presented to the emergency department 7 days ago with complaints of shortness of breath and was admitted for acute pulmonary edema and hyperglycemia. Patient is also chronic tobacco use. Patient continues to have swelling to her left forearm where loop graft is present. She does state that she has some numbness and tingling in her left hand and fingers. Vascular surgery was consulted for left upper extremity swelling. Patient states she does not have any pain it is just uncomfortable secondary to the swelling. She had a venous duplex that shows no concern for DVT and does have patent dialysis graft. Patient has been undergoing dialysis as scheduled without any complications. She is on a Wednesday schedule. Review of Systems A 14 point review systems was completed all pertinent positives and negatives as stated in the HPI. 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 Past Anesthesia/Blood Transfusion Reactions: Previous Problems w/ Anesthesia Additional Past Anesthesia/Blood Transfusion Reaction / Comm: confusion Past Psychological History: Anxiety, Depression Smoking Status: Current every day smoker Past Alcohol Use History: None Reported Past Drug Use History: Marijuana - Past Family History Father History Unknown: Yes Family Medical History: Unable to Obtain Mother History Unknown: Yes Family Medical History: No Reported History Grandfather History Unknown: Yes Family Medical History: Coronary Artery Disease (CAD) Additional Family Medical History / Comment(s): Diabetes mellitus type 2 Medications and Allergies Home Medications Medication Instructions Recorded Confirmed Type Docusate [Colace] 100 mg PO DAILY@0800 02/05/24 02/26/25 History Lidocaine 4% Patch 1 patch TOPICAL DAILY@0800 02/05/24 02/26/25 History Magnesium Hydroxide [Milk of 7,200 mg PO DAILY PRN 02/05/24 02/26/25 History Magnesia Concentrate] Ipratropium-Albuterol Nebulize 3 ml INHALATION RT-TID PRN each 02/14/24 02/26/25 Rx [Duoneb 0.5 mg-3 mg/3 ml Soln] polyethylene glycoL 3350 [Miralax] 17 gm PO AC-LUNCH #527 gm 02/14/24 02/26/25 Rx Acetaminophen [Tylenol] 650 mg PO Q4H PRN 02/18/24 02/26/25 History Biotene Dry Mouth/Throat 10 ml PO BID PRN 02/18/24 02/26/25 History Melatonin 1 mg PO HS tab 02/25/24 02/26/25 Rx Loratadine [Claritin] 5 mg PO DAILY tab 03/30/24 02/26/25 Rx Aspirin 81 mg PO DAILY@0800 #30 tab 05/18/24 02/26/25 Rx Famotidine [Pepcid] 20 mg PO BID #60 tab 07/11/24 02/26/25 Rx Levothyroxine Sodium [Synthroid] 175 mcg PO DAILY@0608/14/24 02/26/25 History Metoclopramide [Reglan] 5 mg PO AC-TID PRN 08/14/24 02/26/25 History Pantoprazole [Protonix] 40 mg PO DAILY@59908/14/24 02/26/25 History Sertraline [Zoloft] 200 mg PO DAILY@0800 08/14/24 02/26/25 History Colchicine [Colcrys] 0.3 mg PO DAILY #15 each 09/23/24 02/26/25 Rx Ondansetron Odt [Zofran ODT] 4 mg PO Q8HR PRN 11/02/24 02/26/25 History Atorvastatin [Lipitor] 40 mg PO HS #0 11/23/24 02/26/25 Rx oxyCODONE-APAP 10-325MG [Percocet 1 tab PO Q4HR PRN #18 tab 11/23/24 02/26/25 Rx 10-325 mg] Folic Acid/Vit B Complex and C 0.8 mg PO DAILY 12/20/24 02/26/25 History [Davina-Mayte Tablet] traZODone HCL [Desyrel] 50 mg PO HS #20 tab 01/01/25 02/26/25 Rx Isosorbide Mononitrate ER [Imdur] 120 mg PO DAILY #60 tab 01/02/25 02/26/25 Rx NIFEdipine XL [Procardia XL] 60 mg PO BID 30 Days #60 tab 01/02/25 02/26/25 Rx Gabapentin [Neurontin] 100 mg PO BID 30 Days #60 cap 01/03/25 02/26/25 Rx Linagliptin [Tradjenta] 5 mg PO DAILY #30 tab 01/03/25 02/26/25 Rx Insulin Lispro [humaLOG Kwikpen] 8 unit SQ AC-TID 01/22/25 02/26/25 History Insulin Lispro [humaLOG Kwikpen] See Protocol SQ AC-TID 01/22/25 02/26/25 History cloNIDine HCL [Catapres] 0.3 mg PO TID 01/22/25 02/26/25 History Butalb/APAP/Caff 50-325-40Mg 1 tab PO Q4HR PRN #12 tab 01/26/25 02/26/25 Rx [Fioricet 50-325-40] carvediloL [Coreg] 50 mg PO BID #120 tablet 02/15/25 02/26/25 Rx Calcium Acetate [PhosLo] 1,334 mg PO TID-W/MEALS 30 Days 02/19/25 02/26/25 Rx #360 tab Ipratropium-Albuterol Nebulize 3 ml INHALATION RT-TID #100 each 02/19/25 02/26/25 Rx [Duoneb 0.5 mg-3 mg/3 ml Soln] ALPRAZolam [Xanax] 0.25 mg PO BID PRN 02/26/25 02/26/25 History Divalproex Sodium [Depakote] 500 mg PO BID@0800,1700 02/26/25 02/26/25 History Insulin Glargine (Lantus) [Lantus 14 unit SQ BID 02/26/25 02/26/25 History Vial] Lidocaine 5% Cream 1 applic TOPICAL MOTUWETHSA 02/26/25 02/26/25 History Methoxy Peg-Epoetin Beta [Mircera] 100 mcg SQ Q14D 02/26/25 02/26/25 History Allergies Allergy/AdvReac Type Severity Reaction Status Date / Time hydromorphone HCl Allergy Anaphylaxis Verified 02/26/25 14:57 [From Dilaudid] propoxyphene Allergy Rash/Hives Verified 02/26/25 14:57 [From Darvocet-N] tramadol Allergy Anaphylaxis Verified 02/26/25 14:57 ibuprofen [From Motrin] AdvReac unable to Verified 02/26/25 14:57 take due to kidney disease venom-honey bee AdvReac passes out Verified 02/26/25 14:57 [bee venom (honey bee)] Surgical - Exam Vital Signs Temp Pulse Resp BP Pulse Ox 97.1 F L 74 20 158/85 96 02/26/25 13:10 02/26/25 13:10 02/26/25 13:10 02/26/25 13:10 02/26/25 13:10 General appearance: The patient is alert, oriented, ill-appearing, appears in no acute distress. HET: Head is normocephalic and atraumatic. Pupils are equal and reactive. Neck: Supple. Heart: Regular. Lungs: Equal expansion, normal respiratory effort. Abdomen: Soft, nontender, nondistended. Extremities: Normal skin color. Left palpable radial pulse, left forearm AV loop graft palpable thrill. Left forearm with swelling. Hand fingers and left upper extremity with full range of motion. Neurological: No focal deficits. Stren alert and oriented. Lower extremity edema. Results - Labs 03/05/25 06:13 03/05/25 06:13 Abnormal Lab Results - Last 24 Hours (Table) 03/04/25 03/04/25 03/04/25 Range/Units 16:35 16:36 19:53 RBC (4.10-5.20) 10*6/uL Hgb (12.0-15.0) g/dL Hct (37.2-46.3) % MCV (80.0-97.0) fL MCH (27.0-32.0) pg Immature Gran # (0.00-0.04) 10*3/uL Eosinophils # (0.04-0.35) 10*3/uL Sodium (137-145) mmol/L Potassium (3.5-5.1) mmol/L Chloride (98-107) mmol/L BUN (7-17) mg/dL Creatinine (0.52-1.04) mg/dL Glucose (74-99) mg/dL POC Glucose (mg/dL) 65 L 61 L 166 H (70-110) mg/dL 03/05/25 03/05/25 Range/Units 06:13 06:13 RBC 2.67 L (4.10-5.20) 10*6/uL Hgb 8.6 L (12.0-15.0) g/dL Hct 26.1 L (37.2-46.3) % MCV 97.8 H (80.0-97.0) fL MCH 32.2 H (27.0-32.0) pg Immature Gran # 0.09 H (0.00-0.04) 10*3/uL Eosinophils # 0.73 H (0.04-0.35) 10*3/uL Sodium 132 L (137-145) mmol/L Potassium 5.9 H (3.5-5.1) mmol/L Chloride 97 L (98-107) mmol/L BUN 55 H (7-17) mg/dL Creatinine 4.98 H (0.52-1.04) mg/dL Glucose 67 L (74-99) mg/dL POC Glucose (mg/dL) (70-110) mg/dL Diabetes panel 03/05/25 Range/Units 06:13 Sodium 132 L (137-145) mmol/L Potassium 5.9 H (3.5-5.1) mmol/L Chloride 97 L (98-107) mmol/L Carbon Dioxide 24 (22-30) mmol/L BUN 55 H (7-17) mg/dL Creatinine 4.98 H (0.52-1.04) mg/dL Glucose 67 L (74-99) mg/dL Calcium 9.3 (8.4-10.2) mg/dL Calcium panel 03/05/25 Range/Units 06:13 Calcium 9.3 (8.4-10.2) mg/dL Pituitary panel 03/05/25 Range/Units 06:13 Sodium 132 L (137-145) mmol/L Potassium 5.9 H (3.5-5.1) mmol/L Chloride 97 L (98-107) mmol/L Carbon Dioxide 24 (22-30) mmol/L BUN 55 H (7-17) mg/dL Creatinine 4.98 H (0.52-1.04) mg/dL Glucose 67 L (74-99) mg/dL Calcium 9.3 (8.4-10.2) mg/dL Adrenal panel 03/05/25 Range/Units 06:13 Sodium 132 L (137-145) mmol/L Potassium 5.9 H (3.5-5.1) mmol/L Chloride 97 L (98-107) mmol/L Carbon Dioxide 24 (22-30) mmol/L BUN 55 H (7-17) mg/dL Creatinine 4.98 H (0.52-1.04) mg/dL Glucose 67 L (74-99) mg/dL Calcium 9.3 (8.4-10.2) mg/dL Assessment and Plan Assessment: 1. Left upper extremity swelling 2. Left forearm AV loop graft 3. End-stage renal disease on hemodialysis 4. Volume overload 5. Diabetes mellitus 6. Smoker Plan: 1. Venous duplex reviewed 2. Recommend applying compression stocking or Jv wrap to left upper extremity, elevate left upper extremity 3. There is no indication for any vascular surgical intervention 4. Recommend outpatient follow-up with Dr. Razo in 1 to 2 weeks 5. Rest of medical management per primary medical team Thank you for this consultation. The impression and plan of care has been dictated as directed. I performed a history and examination of this patient, discussed the same with the dictator. I agree with the dictator's note ,documented as a scribe. Any additional findings or plans will be noted.
[2025-03-05 12:12] LABS: Glucose,Whole Blood 73 mg/dL (70-110)
[2025-03-05 12:12] LABS: Glucose,Whole Blood 54 mg/dL (70-110)
[2025-03-05 16:49] LABS: Glucose,Whole Blood 109 mg/dL (70-110)
[2025-03-05 19:56] LABS: Glucose,Whole Blood 163 mg/dL (70-110)
--- NOTE | 2025-03-05 23:09 | P.PN ---
Subjective Progress Note Date: 03/05/25 Patient is a 35-year-old female with a past medical history of ESRD on hemodialysis 4 times a week, M TTS with right subclavian permacath awaiting panel and liver transplant , hypertension, diabetes type 2 insulin-dependent, hypothyroidism, diabetic neuropathy, gastroparesis,, anxiety/depression, currently everyday smoker and history of marijuana and methamphetamine use. Patient was recently discharged from the hospital was admitted due to hypertensive emergency and pulmonary edema and fluid overload. Patient presents to ER with complaints of worsening shortness of breath since yesterday. Last hemodialysis was on Wednesday. Also complains of cough and leg swelling. Complains of nausea. No episodes of vomiting. Denies any chest pain or palpitations. No fever no chills. Patient states that she has been taking her insulin regimen as recommended. Chest x-ray showed cardiomegaly with patchy interstitial prominence suggesting CHF exacerbation. Correlate clinically. EKG showed sinus rhythm Laboratory data showed WBC 11.2 hemoglobin 10.0 and platelets 259 sodium 125 potassium 5.2 with slight hemolysis, chloride 82 BUN 74 creatinine 4.96 and blood sugar 612 anion gap 18 and bicarb is 25 lactic acid 2.1 AST 50 ALT 112 alk phos 211 and proBNP 81,109, acetone negative 02/27/2025 Patient is lying in the bed. Awake alert and oriented x 3. No complaints of chest pain. Shortness of breath is improving. Complains of nausea. No cough or sputum production. Patient underwent hemodialysis yesterday and is also scheduled today. No fever no chills. Blood sugar is controlled. Laboratory data showed WBC 9.6 hemoglobin 9.6 and platelets 228 sodium 129 potassium 4.7 chloride 90 bicarb is 26 BUN 55 and creatinine 4.13 and blood sugar 189 and calcium 9.1. Nephrology is on board. 02/28/2025 Patient is resting in the bed. Awake alert and oriented x 3. No complaints of chest pain. Shortness of breath is much improved. Able to tolerate oral diet. No cough or sputum production. Blood pressure is also improved. Patient is requiring 2 L oxygen via nasal cannula. CBG went down to 49 around 1130 which is improved now. Hemodialysis tomorrow. 03/01/2025 Patient is lying in the bed. Awake alert and oriented x 3. Complains of significant cough and whitish to brownish sputum production. Also complains of nausea. Patient did have hemodialysis yesterday with 2.5 L of ultrafiltration. Again scheduled today. No complaints of chest pain. Shortness of breath is better. Patient has been afebrile. Laboratory data reviewed. 03/02/2025 Patient is lying in the bed awake alert and oriented x 3. She complains of cough and shortness of breath. Patient underwent hemodialysis yesterday and next hemodialysis session tomorrow. No complaints of chest pain. Patient has been afebrile. Repeat chest x-ray showed improvement in pulmonary vascular congestion. Patient is tolerating oral diet. Lab data reviewed. 03/03/2025 Patient is lying in the bed. Awake alert and oriented. Patient states that she was nauseous this morning. Also complains of shortness of breath still. No e pisodes of vomiting. No fever no chills. Patient is undergoing hemodialysis today. Lab data showed WBC 12.5 hemoglobin 8.5 and platelets 239 sodium 131 potassium 5.7 chloride 93 bicarb is 25 BUN 57 and creatinine 5.45 and blood sugar 207. Phosphorus 5.4. Nephrology is on board. 03/04/2025 Patient is lying in the bed but awake alert and oriented. Complains of left upper extremity swelling. Rates patient is still having bilateral swelling. Scheduled for hemodialysis. Nephrology on board. Patient is also on fluid restriction. Laboratory data showed WBC 8.2 hemoglobin 8.9 and platelets 240 sodium 133 potassium 4.9 chloride 86 bicarbonate 26 BUN 37 creatinine 4.1 and blood sugar 130. Nephrology is on board. 03/05/2025. Patient is resting in the bed. Awake alert and oriented. Still complains of shortness of breath and worsening left upper extremity swelling. Duplex scan is negative for DVT. Patient was seen by vascular surgery recommends compression stockings and Jv wrap to the left upper extremity. Patient is also complaining of left breast swelling and tender. The patient has been afebrile. Laboratory data showed WBC 8.1 hemoglobin 8.6 and platelets 213 sodium 132 potassium 5.9 chloride 97 bicarb is 24 BUN 55 creatinine 4.98 and blood sugar 67. Calcium 9.3 Current medications reviewed. Objective - Vital Signs Vital signs: Vital Signs Temp 97.8 F 03/05/25 16:13 Pulse 68 03/05/25 16:13 Resp 16 03/05/25 16:13 BP 135/78 03/05/25 16:13 Pulse Ox 96 03/05/25 16:13 FiO2 Intake & Output 03/05/25 03/05/25 03/06/25 06:59 18:59 06:59 Intake Total 250 740 Output Total 0 0 Balance 250 740 Weight 79.5 kg Intake: IV 20 Invasive Line 1 20 Oral 250 720 Output: Urine 0 0 Other: Voiding Method Toilet Toilet # Bowel Movements 0 - Exam PHYSICAL EXAMINATION: Patient is lying in the bed comfortably, no acute distress, awake alert and oriented.. HEENT: Normocephalic. Neck is supple. Pupils reactive. Nostrils clear. Oral cavity is moist. Neck reveals no JVD, carotid bruits, or thyromegaly. CHEST EXAMINATION: Trachea is central. Symmetrical expansion. Clear to a uscultation bilaterally. No wheezing or rhonchi nonlabored breathing. CARDIAC: Normal S1, S2 with no gallops. No murmurs ABDOMEN: Soft. Bowel sounds normal. No organomegaly. No abdominal bruits. Extremities: Bilateral lower extremity trace edema. Left upper extremity swelling and mild tenderness. No clubbing or cyanosis Neurologically awake, alert, oriented x3 with well-coordinated movements. No gross focal deficits noted Skin: No rash or skin lesions. Psychiatric: Coperative. Nonsuicidal Musculoskeletal: No joint swelling or deformity. Normal range of motion. - Labs CBC & Chem 7: 03/05/25 06:13 03/05/25 06:13 Labs: Abnormal Lab Results - Last 24 Hours (Table) 03/04/25 03/05/25 03/05/25 Range/Units 19:53 06:13 06:13 RBC 2.67 L (4.10-5.20) 10*6/uL Hgb 8.6 L (12.0-15.0) g/dL Hct 26.1 L (37.2-46.3) % MCV 97.8 H (80.0-97.0) fL MCH 32.2 H (27.0-32.0) pg Immature Gran # 0.09 H (0.00-0.04) 10*3/uL Eosinophils # 0.73 H (0.04-0.35) 10*3/uL Sodium 132 L (137-145) mmol/L Potassium 5.9 H (3.5-5.1) mmol/L Chloride 97 L (98-107) mmol/L BUN 55 H (7-17) mg/dL Creatinine 4.98 H (0.52-1.04) mg/dL Glucose 67 L (74-99) mg/dL POC Glucose (mg/dL) 166 H (70-110) mg/dL 03/05/25 Range/Units 11:45 RBC (4.10-5.20) 10*6/uL Hgb (12.0-15.0) g/dL Hct (37.2-46.3) % MCV (80.0-97.0) fL MCH (27.0-32.0) pg Immature Gran # (0.00-0.04) 10*3/uL Eosinophils # (0.04-0.35) 10*3/uL Sodium (137-145) mmol/L Potassium (3.5-5.1) mmol/L Chloride (98-107) mmol/L BUN (7-17) mg/dL Creatinine (0.52-1.04) mg/dL Glucose (74-99) mg/dL POC Glucose (mg/dL) 54 L (70-110) mg/dL Assessment and Plan Assessment: Worsening shortness of breath due to acute CHF and fluid overload ESRD on hemodialysis 4 times per week M TTS Left upper extremity worsening swelling. Rule out DVT. 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 Patient was seen by nephrology and undergoing hemodialysis on daily basis. Vascular surgery was consulted due to worsening left upper extremity swelling. Hand elevation and compression stockings applied. Insulin drip has been discontinued and patient was started back on her home regimen and titrate dose.. Continue to monitor for hypoglycemic episodes.. Symptomatic management for nausea. ontinue with pain management. Current with home medications and follow-up closely. Time with Patient: Greater than 30
--- NOTE | 2025-03-05 23:09 | P.PN ---
Subjective Progress Note Date: 03/04/25 Patient is a 35-year-old female with a past medical history of ESRD on hemodialysis 4 times a week, M TTS with right subclavian permacath awaiting panel and liver transplant , hypertension, diabetes type 2 insulin-dependent, hypothyroidism, diabetic neuropathy, gastroparesis,, anxiety/depression, currently everyday smoker and history of marijuana and methamphetamine use. Patient was recently discharged from the hospital was admitted due to hypertensive emergency and pulmonary edema and fluid overload. Patient presents to ER with complaints of worsening shortness of breath since yesterday. Last hemodialysis was on Wednesday. Also complains of cough and leg swelling. Complains of nausea. No episodes of vomiting. Denies any chest pain or palpitations. No fever no chills. Patient states that she has been taking her insulin regimen as recommended. Chest x-ray showed cardiomegaly with patchy interstitial prominence suggesting CHF exacerbation. Correlate clinically. EKG showed sinus rhythm Laboratory data showed WBC 11.2 hemoglobin 10.0 and platelets 259 sodium 125 potassium 5.2 with slight hemolysis, chloride 82 BUN 74 creatinine 4.96 and blood sugar 612 anion gap 18 and bicarb is 25 lactic acid 2.1 AST 50 ALT 112 alk phos 211 and proBNP 81,109, acetone negative 02/27/2025 Patient is lying in the bed. Awake alert and oriented x 3. No complaints of chest pain. Shortness of breath is improving. Complains of nausea. No cough or sputum production. Patient underwent hemodialysis yesterday and is also scheduled today. No fever no chills. Blood sugar is controlled. Laboratory data showed WBC 9.6 hemoglobin 9.6 and platelets 228 sodium 129 potassium 4.7 chloride 90 bicarb is 26 BUN 55 and creatinine 4.13 and blood sugar 189 and calcium 9.1. Nephrology is on board. 02/28/2025 Patient is resting in the bed. Awake alert and oriented x 3. No complaints of chest pain. Shortness of breath is much improved. Able to tolerate oral diet. No cough or sputum production. Blood pressure is also improved. Patient is requiring 2 L oxygen via nasal cannula. CBG went down to 49 around 1130 which is improved now. Hemodialysis tomorrow. 03/01/2025 Patient is lying in the bed. Awake alert and oriented x 3. Complains of significant cough and whitish to brownish sputum production. Also complains of nausea. Patient did have hemodialysis yesterday with 2.5 L of ultrafiltration. Again scheduled today. No complaints of chest pain. Shortness of breath is better. Patient has been afebrile. Laboratory data reviewed. 03/02/2025 Patient is lying in the bed awake alert and oriented x 3. She complains of cough and shortness of breath. Patient underwent hemodialysis yesterday and next hemodialysis session tomorrow. No complaints of chest pain. Patient has been afebrile. Repeat chest x-ray showed improvement in pulmonary vascular congestion. Patient is tolerating oral diet. Lab data reviewed. 03/03/2025 Patient is lying in the bed. Awake alert and oriented. Patient states that she was nauseous this morning. Also complains of shortness of breath still. No e pisodes of vomiting. No fever no chills. Patient is undergoing hemodialysis today. Lab data showed WBC 12.5 hemoglobin 8.5 and platelets 239 sodium 131 potassium 5.7 chloride 93 bicarb is 25 BUN 57 and creatinine 5.45 and blood sugar 207. Phosphorus 5.4. Nephrology is on board. 03/04/2025 Patient is lying in the bed but awake alert and oriented. Complains of left upper extremity swelling. Rates patient is still having bilateral swelling. Scheduled for hemodialysis. Nephrology on board. Patient is also on fluid restriction. Laboratory data showed WBC 8.2 hemoglobin 8.9 and platelets 240 sodium 133 potassium 4.9 chloride 86 bicarbonate 26 BUN 37 creatinine 4.1 and blood sugar 130. Nephrology is on board. Current medications reviewed. Objective - Vital Signs Vital signs: Vital Signs Temp 97.5 F L 03/04/25 08:40 Pulse 68 03/04/25 08:40 Resp 17 03/04/25 08:40 BP 115/83 03/04/25 08:40 Pulse Ox 100 03/04/25 08:40 FiO2 Intake & Output 03/03/25 03/04/25 03/04/25 18:59 06:59 18:59 Intake Total 880 360 Output Total 9400 Balance -8520 360 Weight 79.9 kg Intake: Oral 480 360 Hemodialysis 400 Output: Hemodialysis 4900 Hemodialysis Net Amount 4500 Other: Voiding Method Toilet Toilet Toilet # Voids 0 1 - Exam PHYSICAL EXAMINATION: Patient is lying in the bed comfortably, no acute distress, awake alert and oriented.. HEENT: Normocephalic. Neck is supple. Pupils reactive. Nostrils clear. Oral cavity is moist. Neck reveals no JVD, carotid bruits, or thyromegaly. CHEST EXAMINATION: Trachea is central. Symmetrical expansion. Clear to auscultation bilaterally. No wheezing or rhonchi nonlabored breathing. CARDIAC: Normal S1, S2 with no gallops. No murmurs ABDOMEN: Soft. Bowel sounds normal. No organomegaly. No abdominal bruits. Extremities: Bilateral lower extremity trace edema. Left upper extremity swelling and mild tenderness. No clubbing or cyanosis Neurologically awake, alert, oriented x3 with well-coordinated movements. No gross focal deficits noted Skin: No rash or skin lesions. Psychiatric: Coperative. Nonsuicidal Musculoskeletal: No joint swelling or deformity. Normal range of motion. - Labs CBC & Chem 7: 03/05/25 06:13 03/05/25 06:13 Labs: Abnormal Lab Results - Last 24 Hours (Table) 03/03/25 03/03/25 03/03/25 Range/Units 11:56 16:27 19:50 RBC (4.10-5.20) 10*6/uL Hgb (12.0-15.0) g/dL Hct (37.2-46.3) % MCV (80.0-97.0) fL MCH (27.0-32.0) pg Eosinophils # (0.04-0.35) 10*3/uL Sodium (137-145) mmol/L Chloride (98-107) mmol/L BUN (7-17) mg/dL Creatinine (0.52-1.04) mg/dL Glucose (74-99) mg/dL POC Glucose (mg/dL) 132 H 218 H 329 H (70-110) mg/dL 03/04/25 03/04/25 03/04/25 Range/Units 05:52 06:52 06:52 RBC 2.76 L (4.10-5.20) 10*6/uL Hgb 8.9 L (12.0-15.0) g/dL Hct 27.6 L (37.2-46.3) % MCV 100.0 H (80.0-97.0) fL MCH 32.2 H (27.0-32.0) pg Eosinophils # 0.75 H (0.04-0.35) 10*3/uL Sodium 133 L (137-145) mmol/L Chloride 96 L (98-107) mmol/L BUN 37 H (7-17) mg/dL Creatinine 4.10 H (0.52-1.04) mg/dL Glucose 130 H (74-99) mg/dL POC Glucose (mg/dL) 158 H (70-110) mg/dL Assessment and Plan Assessment: Worsening shortness of breath due to acute CHF and fluid overload ESRD on hemodialysis 4 times per week M TTS Left upper extremity worsening swelling. Rule out DVT. 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 Patient was seen by nephrology and undergoing hemodialysis on daily basis. Vascular surgery was consulted due to worsening left upper quadrant swelling. Insulin drip has been discontinued and patient was started back on her home regimen and titrate dose.. Continue to monitor for hypoglycemic episodes.. Symptomatic management for nausea. ontinue with pain management. Current with home medications and follow-up closely. Time with Patient: Greater than 30
[2025-03-06] MEDS: LIDOCAINE-PRILOCAINE 2.5-2.5% CREAM 5 GM TUBE TOPICAL STA (00:31)
[2025-03-06 06:08] LABS: Glucose,Whole Blood 118 mg/dL (70-110)
[2025-03-06 08:32] LABS: African American GFR (CKD) 16 (>60 ml/min/1.73 sqM); Anion Gap 13 mmol/L; Blood Urea Nitrogen 39 mg/dL (7-17); Carbon Dioxide 28 mmol/L (22-30); Chloride 95 mmol/L (98-107); Glucose 133 mg/dL (74-99); Non-African American GFR(CKD) 14 (>60 ml/min/1.73 sqM); Potassium 4.9 mmol/L (3.5-5.1); Sodium 136 mmol/L (137-145)
[2025-03-06] MEDS: ACETAMINOPHEN TAB 325 MG TAB PO PRN (09:05)
--- NOTE | 2025-03-06 10:51 | P.PN ---
Subjective Patient is seen in follow-up for end-stage renal disease. Tolerating dialysis well. Hemodynamically stable. Vital signs are stable. General: No acute distress. HEENT: Head exam is unremarkable. On nasal cannula. LUNGS: Scattered rhonchi. HEART: Rate and Rhythm are regular. ABDOMEN: Nontender. EXTREMITITES: 2+ edema in lower extremities. Objective - Vital Signs Vital signs: Vital Signs Temp 97.2 F L 03/06/25 07:52 Pulse 70 03/06/25 08:29 Resp 16 03/06/25 07:52 BP 168/87 03/06/25 07:52 Pulse Ox 99 03/06/25 08:18 FiO2 Intake & Output 03/05/25 03/06/25 03/06/25 18:59 06:59 18:59 Intake Total 740 5520 492 Output Total 0 5500 Balance 740 20 492 Weight 84.5 kg Intake: IV 20 20 20 Invasive Line 1 20 20 20 Oral 720 472 Hemodialysis 5500 Output: Urine 0 Hemodialysis 500 Hemodialysis Net Amount 5000 Other: Voiding Method Toilet Toilet Toilet # Voids 1 # Bowel Movements 0 1 - Labs CBC & Chem 7: 03/05/25 06:13 03/06/25 07:57 Labs: Abnormal Lab Results - Last 24 Hours (Table) 03/05/25 03/05/25 03/06/25 Range/Units 11:45 19:55 06:07 Sodium (137-145) mmol/L Chloride (98-107) mmol/L BUN (7-17) mg/dL Creatinine (0.52-1.04) mg/dL Glucose (74-99) mg/dL POC Glucose (mg/dL) 54 L 163 H 118 H (70-110) mg/dL 03/06/25 Range/Units 07:57 Sodium 136 L (137-145) mmol/L Chloride 95 L (98-107) mmol/L BUN 39 H (7-17) mg/dL Creatinine 4.06 H (0.52-1.04) mg/dL Glucose 133 H (74-99) mg/dL POC Glucose (mg/dL) (70-110) mg/dL Assessment and Plan Plan: Assessment: 1. End-stage renal disease maintained on hemodialysis on Wednesday. 2. Volume overload. 3. Hyperkalemia secondary to chronic kidney disease. Expect improvement postd ialysis. 4. Anemia of chronic kidney disease. On Aranesp. 5. Hypertension with chronic kidney disease. Stable. 6. Chronic kidney disease mineral bone disease. On PhosLo. 7. History of pericardial effusion maintained on colchicine. Plan: Currently seen while undergoing hemodialysis. Plan for another treatment tomorrow mostly for ultrafiltration. Advised patient to maintain low-salt diet and fluid restriction of less than 50 ounces per day upon discharge. Also advised her to maintain a low potassium diet.
--- NOTE | 2025-03-06 11:05 | P.PN ---
Subjective Progress Note Date: 03/06/25 Principal diagnosis: Left upper extremity swelling Patient is seen and examined today as a follow-up. She is currently undergoing hemodialysis per left forearm loop graft. No complications during hemodialysis. Left upper extremity swelling has improved after being elevated and Jv wrap application. Objective - Vital Signs Vital signs: Vital Signs Temp 97.2 F L 03/06/25 07:52 Pulse 70 03/06/25 08:29 Resp 16 03/06/25 07:52 BP 168/87 03/06/25 07:52 Pulse Ox 99 03/06/25 08:18 FiO2 Intake & Output 03/05/25 03/06/25 03/06/25 18:59 06:59 18:59 Intake Total 740 5520 492 Output Total 0 5500 Balance 740 20 492 Weight 84.5 kg Intake: IV 20 20 20 Invasive Line 1 20 20 20 Oral 720 472 Hemodialysis 5500 Output: Urine 0 Hemodialysis 500 Hemodialysis Net Amount 5000 Other: Voiding Method Toilet Toilet Toilet # Voids 1 # Bowel Movements 0 1 - Exam General appearance: The patient is alert, oriented, appears in no acute distress. HET: Head is normocephalic and atraumatic. Pupils are equal and reactive. Neck: Supple. Abdomen: Soft, nontender, nondistended. Extremities: Normal skin color and turgor. Palpable left radial pulse. Left forearm swelling improved with compression. Neurological: No focal deficits. Alert and oriented. - Labs CBC & Chem 7: 03/05/25 06:13 03/06/25 07:57 Labs: Abnormal Lab Results - Last 24 Hours (Table) 03/05/25 03/05/25 03/06/25 Range/Units 11:45 19:55 06:07 Sodium (137-145) mmol/L Chloride (98-107) mmol/L BUN (7-17) mg/dL Creatinine (0.52-1.04) mg/dL Glucose (74-99) mg/dL POC Glucose (mg/dL) 54 L 163 H 118 H (70-110) mg/dL 03/06/25 Range/Units 07:57 Sodium 136 L (137-145) mmol/L Chloride 95 L (98-107) mmol/L BUN 39 H (7-17) mg/dL Creatinine 4.06 H (0.52-1.04) mg/dL Glucose 133 H (74-99) mg/dL POC Glucose (mg/dL) (70-110) mg/dL Assessment and Plan Assessment: 1. Left upper extremity swelling improved 2. Left forearm AV loop graft 3. End-stage renal disease on hemodialysis 4. Volume overload 5. Diabetes mellitus 6. Smoker Plan: 1. Venous duplex reviewed 2. Recommend applying compression stocking or Jv wrap to left upper extremity, elevate left upper extremity 3. There is no indication for any vascular surgical intervention 4. Recommend outpatient follow-up with Dr. Razo in 1 to 2 weeks 5. Rest of medical management per primary medical team Thank you for this consultation. We will sign off at this time. The impression and plan of care has been dictated as directed. Dr. Yarbrough I performed a history and examination of this patient, discussed the same with the dictator. I agree with the dictator's note ,documented as a scribe. Any additional findings or plans will be noted.
[2025-03-06 11:52] LABS: Glucose,Whole Blood 132 mg/dL (70-110)
[2025-03-06 16:08] LABS: Glucose,Whole Blood 310 mg/dL (70-110)
[2025-03-06 20:29] LABS: Glucose,Whole Blood 326 mg/dL (70-110)
--- NOTE | 2025-03-06 23:28 | P.PN ---
Subjective Progress Note Date: 03/06/25 Patient is a 35-year-old female with a past medical history of ESRD on hemodialysis 4 times a week, M TTS with right subclavian permacath awaiting panel and liver transplant , hypertension, diabetes type 2 insulin-dependent, hypothyroidism, diabetic neuropathy, gastroparesis,, anxiety/depression, currently everyday smoker and history of marijuana and methamphetamine use. Patient was recently discharged from the hospital was admitted due to hypertensive emergency and pulmonary edema and fluid overload. Patient presents to ER with complaints of worsening shortness of breath since yesterday. Last hemodialysis was on Wednesday. Also complains of cough and leg swelling. Complains of nausea. No episodes of vomiting. Denies any chest pain or palpitations. No fever no chills. Patient states that she has been taking her insulin regimen as recommended. Chest x-ray showed cardiomegaly with patchy interstitial prominence suggesting CHF exacerbation. Correlate clinically. EKG showed sinus rhythm Laboratory data showed WBC 11.2 hemoglobin 10.0 and platelets 259 sodium 125 potassium 5.2 with slight hemolysis, chloride 82 BUN 74 creatinine 4.96 and blood sugar 612 anion gap 18 and bicarb is 25 lactic acid 2.1 AST 50 ALT 112 alk phos 211 and proBNP 81,109, acetone negative 02/27/2025 Patient is lying in the bed. Awake alert and oriented x 3. No complaints of chest pain. Shortness of breath is improving. Complains of nausea. No cough or sputum production. Patient underwent hemodialysis yesterday and is also scheduled today. No fever no chills. Blood sugar is controlled. Laboratory data showed WBC 9.6 hemoglobin 9.6 and platelets 228 sodium 129 potassium 4.7 chloride 90 bicarb is 26 BUN 55 and creatinine 4.13 and blood sugar 189 and calcium 9.1. Nephrology is on board. 02/28/2025 Patient is resting in the bed. Awake alert and oriented x 3. No complaints of chest pain. Shortness of breath is much improved. Able to tolerate oral diet. No cough or sputum production. Blood pressure is also improved. Patient is requiring 2 L oxygen via nasal cannula. CBG went down to 49 around 1130 which is improved now. Hemodialysis tomorrow. 03/01/2025 Patient is lying in the bed. Awake alert and oriented x 3. Complains of significant cough and whitish to brownish sputum production. Also complains of nausea. Patient did have hemodialysis yesterday with 2.5 L of ultrafiltration. Again scheduled today. No complaints of chest pain. Shortness of breath is better. Patient has been afebrile. Laboratory data reviewed. 03/02/2025 Patient is lying in the bed awake alert and oriented x 3. She complains of cough and shortness of breath. Patient underwent hemodialysis yesterday and next hemodialysis session tomorrow. No complaints of chest pain. Patient has been afebrile. Repeat chest x-ray showed improvement in pulmonary vascular congestion. Patient is tolerating oral diet. Lab data reviewed. 03/03/2025 Patient is lying in the bed. Awake alert and oriented. Patient states that she was nauseous this morning. Also complains of shortness of breath still. No e pisodes of vomiting. No fever no chills. Patient is undergoing hemodialysis today. Lab data showed WBC 12.5 hemoglobin 8.5 and platelets 239 sodium 131 potassium 5.7 chloride 93 bicarb is 25 BUN 57 and creatinine 5.45 and blood sugar 207. Phosphorus 5.4. Nephrology is on board. 03/04/2025 Patient is lying in the bed but awake alert and oriented. Complains of left upper extremity swelling. Rates patient is still having bilateral swelling. Scheduled for hemodialysis. Nephrology on board. Patient is also on fluid restriction. Laboratory data showed WBC 8.2 hemoglobin 8.9 and platelets 240 sodium 133 potassium 4.9 chloride 86 bicarbonate 26 BUN 37 creatinine 4.1 and blood sugar 130. Nephrology is on board. 03/05/2025. Patient is resting in the bed. Awake alert and oriented. Still complains of shortness of breath and worsening left upper extremity swelling. Duplex scan is negative for DVT. Patient was seen by vascular surgery recommends compression stockings and Jv wrap to the left upper extremity. Patient is also complaining of left breast swelling and tender. The patient has been afebrile. Laboratory data showed WBC 8.1 hemoglobin 8.6 and platelets 213 sodium 132 potassium 5.9 chloride 97 bicarb is 24 BUN 55 creatinine 4.98 and blood sugar 67. Calcium 9.3 03/06/2025 Patient is lying in the bed. Awake alert and oriented. Still complains of left arm pain and also left breast discomfort with swelling. No fever no chills. No cough or sputum production. Complains of nausea. No gross vomiting. Patient is getting hemodialysis. Laboratory data showed sodium 136 potassium 4.9 chloride 95 bicarb is 28 BUN 39 and creatinine 4.08 and blood sugar 133. Calcium 9.0. Current medications reviewed. Objective - Vital Signs Vital signs: Vital Signs Temp 98.2 F 03/06/25 19:40 Pulse 70 03/06/25 19:40 Resp 16 03/06/25 19:40 BP 171/86 03/06/25 19:40 Pulse Ox 100 03/06/25 19:40 FiO2 Intake & Output 03/06/25 03/06/25 03/07/25 06:59 18:59 06:59 Intake Total 5520 1210 10 Output Total 5500 Balance 20 1210 10 Weight 84.5 kg Intake: IV 20 30 10 Invasive Line 1 20 30 10 Oral 1180 Hemodialysis 5500 Output: Hemodialysis 500 Hemodialysis Net Amount 5000 Other: Voiding Method Toilet Toilet # Voids 1 # Bowel Movements 1 - Exam PHYSICAL EXAMINATION: Patient is lying in the bed comfortably, no acute distress, awake alert and oriented.. HEENT: Normocephalic. Neck is supple. Pupils reactive. Nostrils clear. Oral cavity is moist. Neck reveals no JVD, carotid bruits, or thyromegaly. CHEST EXAMINATION: Trachea is central. Symmetrical expansion. Clear to auscultation bilaterally. No wheezing or rhonchi nonlabored breathing. CARDIAC: Normal S1, S2 with no gallops. No murmurs ABDOMEN: Soft. Bowel sounds normal. No organomegaly. No abdominal bruits. Extremities: Bilateral lower extremity trace edema. Left upper extremity swelling and mild tenderness. No clubbing or cyanosis Neurologically awake, alert, oriented x3 with well-coordinated movements. No gross focal deficits noted Skin: No rash or skin lesions. Psychiatric: Coperative. Nonsuicidal Musculoskeletal: No joint swelling or deformity. Normal range of motion. - Labs CBC & Chem 7: 03/05/25 06:13 03/06/25 07:57 Labs: Abnormal Lab Results - Last 24 Hours (Table) 03/06/25 03/06/25 03/06/25 Range/Units 06:07 07:57 11:50 Sodium 136 L (137-145) mmol/L Chloride 95 L (98-107) mmol/L BUN 39 H (7-17) mg/dL Creatinine 4.06 H (0.52-1.04) mg/dL Glucose 133 H (74-99) mg/dL POC Glucose (mg/dL) 118 H 132 H (70-110) mg/dL 03/06/25 03/06/25 Range/Units 16:07 20:27 Sodium (137-145) mmol/L Chloride (98-107) mmol/L BUN (7-17) mg/dL Creatinine (0.52-1.04) mg/dL Glucose (74-99) mg/dL POC Glucose (mg/dL) 310 H 326 H (70-110) mg/dL Assessment and Plan Assessment: Worsening shortness of breath due to acute CHF and fluid overload ESRD on hemodialysis 4 times per week M TTS Left upper extremity worsening swelling. Rule out DVT. 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 Patient was seen by nephrology and undergoing hemodialysis on daily basis. Vascular surgery was consulted due to worsening left upper extremity swelling. Hand elevation and compression stockings applied. Insulin drip has been discontinued and patient was started back on her home regimen and titrate dose.. Continue to monitor for hypoglycemic episodes.. Symptomatic management for nausea. ontinue with pain management. Current with home medications and follow-up closely. Time with Patient: Greater than 30
[2025-03-07 02:03] LABS: Glucose,Whole Blood 398 mg/dL (70-110)
[2025-03-07 06:18] LABS: Glucose,Whole Blood 374 mg/dL (70-110)
[2025-03-07 07:35] LABS: African American GFR (CKD) 19 (>60 ml/min/1.73 sqM); Anion Gap 14 mmol/L; Blood Urea Nitrogen 32 mg/dL (7-17); Calcium 9.5 mg/dL (8.4-10.2); Carbon Dioxide 27 mmol/L (22-30); Chloride 91 mmol/L (98-107); Glucose 340 mg/dL (74-99); Non-African American GFR(CKD) 17 (>60 ml/min/1.73 sqM); Potassium 5.4 mmol/L (3.5-5.1); Sodium 132 mmol/L (137-145)
--- NOTE | 2025-03-07 08:04 | USB ---
Reason for Exam: Clinical finding. Technique: Method: Targeted. Findings: The axilla of the left breast and the retroareolar of the left breast were scanned. A complete US of all four quadrants of the breast and retro-areolar region were reviewed. No solid or cystic masses are identified. Edematous breast tissue seen throughout without unusual collection. Posterior nipple shadowing without mass. Findings suggest mastoiditis. Correlate clinically. Short-term follow-up advised. Overall Assessment: Probably benign, BI-RAD 3 Management: Diagnostic Breast Ultrasound of the left breast in 1 month. A clinical breast exam by your physician is recommended on an annual basis and results should be correlated with mammographic findings. This exam should not preclude additional follow-up of suspicious palpable abnormalities. Results were given to the patient verbally at the time of exam. [facility], , 03/07/2025 8:01 AM. Electronically signed and approved by: Grayson Clay M.D. Radiologis
--- NOTE | 2025-03-07 10:07 | P.PN ---
Subjective Patient is seen in follow-up for end-stage renal disease. Feels better today. Will undergo another treatment of dialysis today. Edema improving. Vital signs are stable. General: No acute distress. HEENT: Head exam is unremarkable. On nasal cannula. LUNGS: Scattered rhonchi. HEART: Rate and Rhythm are regular. ABDOMEN: Nontender. EXTREMITITES: 1+ edema in lower extremities. Objective - Vital Signs Vital signs: Vital Signs Temp 97.4 F L 03/07/25 08:04 Pulse 65 03/07/25 08:04 Resp 16 03/07/25 08:04 BP 181/84 03/07/25 08:04 Pulse Ox 100 03/07/25 08:04 FiO2 Intake & Output 03/06/25 03/07/25 03/07/25 18:59 06:59 18:59 Intake Total 1210 960 240 Output Total 78545 Balance 1210 -9440 240 Weight 85 kg Intake: IV 30 20 Invasive Line 1 30 20 Oral 1180 540 240 Hemodialysis 400 Output: Hemodialysis 5400 Hemodialysis Net Amount 5000 Other: Voiding Method Toilet Toilet Toilet - Labs CBC & Chem 7: 03/05/25 06:13 03/07/25 06:49 Labs: Abnormal Lab Results - Last 24 Hours (Table) 03/06/25 03/06/25 03/06/25 Range/Units 11:50 16:07 20:27 Sodium (137-145) mmol/L Potassium (3.5-5.1) mmol/L Chloride (98-107) mmol/L BUN (7-17) mg/dL Creatinine (0.52-1.04) mg/dL Glucose (74-99) mg/dL POC Glucose (mg/dL) 132 H 310 H 326 H (70-110) mg/dL 03/07/25 03/07/25 03/07/25 Range/Units 02:02 06:16 06:49 Sodium 132 L (137-145) mmol/L Potassium 5.4 H (3.5-5.1) mmol/L Chloride 91 L (98-107) mmol/L BUN 32 H (7-17) mg/dL Creatinine 3.42 H (0.52-1.04) mg/dL Glucose 340 H (74-99) mg/dL POC Glucose (mg/dL) 398 H 374 H (70-110) mg/dL Assessment and Plan Plan: Assessment: 1. End-stage renal disease maintained on hemodialysis on Wednesday y Wednesday. 2. Volume overload. Improving with ultrafiltration. 3. Hyperkalemia secondary to chronic kidney disease. Expect improvement postdialysis. 4. Anemia of chronic kidney disease. On Aranesp. 5. Hypertension with chronic kidney disease. Stable. 6. Chronic kidney disease mineral bone disease. On PhosLo. 7. History of pericardial effusion maintained on colchicine. Plan: Hemodialysis today and again tomorrow. Advised patient to maintain low-salt diet and fluid restriction of less than 50 ounces per day upon discharge. Also advised her to maintain a low potassium diet. Blood glucose control.
--- NOTE | 2025-03-07 10:15 | P.PN ---
Subjective Patient is a 35-year-old female with a past medical history of ESRD on hemodialysis 4 times a week, M TTS with right subclavian permacath awaiting p marcela and liver transplant , hypertension, diabetes type 2 insulin-dependent, hypothyroidism, diabetic neuropathy, gastroparesis,, anxiety/depression, currently everyday smoker and history of marijuana and methamphetamine use. Patient was recently discharged from the hospital was admitted due to hype rtensive emergency and pulmonary edema and fluid overload. Patient presents to ER with complaints of worsening shortness of breath since yesterday. Last hemodialysis was on Wednesday. Also complains of cough and leg swelling. Complains of nausea. No episodes of vomiting. Denies any chest pain or palpitations. No fever no chills. Patient states that she has been taking her insulin regimen as recommended. Chest x-ray showed cardiomegaly with patchy interstitial prominence suggesting CHF exacerbation. Correlate clinically. EKG showed sinus rhythm Laboratory data showed WBC 11.2 hemoglobin 10.0 and platelets 259 sodium 125 potassium 5.2 with slight hemolysis, chloride 82 BUN 74 creatinine 4.96 and blood sugar 612 anion gap 18 and bicarb is 25 lactic acid 2.1 AST 50 ALT 112 alk phos 211 and proBNP 81,109, acetone negative 02/27/2025 Patient is lying in the bed. Awake alert and oriented x 3. No complaints of chest pain. Shortness of breath is improving. Complains of nausea. No cough or sputum production. Patient underwent hemodialysis yesterday and is also scheduled today. No fever no chills. Blood sugar is controlled. Laboratory data showed WBC 9.6 hemoglobin 9.6 and platelets 228 sodium 129 potassium 4.7 chloride 90 bicarb is 26 BUN 55 and creatinine 4.13 and blood s ugar 189 and calcium 9.1. Nephrology is on board. 02/28/2025 Patient is resting in the bed. Awake alert and oriented x 3. No complaints of chest pain. Shortness of breath is much improved. Able to tolerate oral diet. No cough or sputum production. Blood pressure is also improved. Patient is requiring 2 L oxygen via nasal cannula. CBG went down to 49 around 1130 which is improved now. Hemodialysis tomorrow. 03/01/2025 Patient is lying in the bed. Awake alert and oriented x 3. Complains of significant cough and whitish to brownish sputum production. Also complains of nausea. Patient did have hemodialysis yesterday with 2.5 L of ultrafiltration. Again scheduled today. No complaints of chest pain. Shortness of breath is better. Patient has been afebrile. Laboratory data reviewed. 03/02/2025 Patient is lying in the bed awake alert and oriented x 3. She complains of cough and shortness of breath. Patient underwent hemodialysis yesterday and next hemodialysis session tomorrow. No complaints of chest pain. Patient has been afebrile. Repeat chest x-ray showed improvement in pulmonary vascular congestion. Patient is tolerating oral diet. Lab data reviewed. 03/03/2025 Patient is lying in the bed. Awake alert and oriented. Patient states that she was nauseous this morning. Also complains of shortness of breath still. No episodes of vomiting. No fever no chills. Patient is undergoing hemodialysis today. Lab data showed WBC 12.5 hemoglobin 8.5 and platelets 239 sodium 131 potassium 5.7 chloride 93 bicarb is 25 BUN 57 and creatinine 5.45 and blood sugar 207. Phosphorus 5.4. Nephrology is on board. 03/04/2025 Patient is lying in the bed but awake alert and oriented. Complains of left upper extremity swelling. Rates patient is still having bilateral swelling. Scheduled for hemodialysis. Nephrology on board. Patient is also on fluid restriction. Laboratory data showed WBC 8.2 hemoglobin 8.9 and platelets 240 sodium 133 potassium 4.9 chloride 86 bicarbonate 26 BUN 37 creatinine 4.1 and blood sugar 130. Nephrology is on board. 03/05/2025. Patient is resting in the bed. Awake alert and oriented. Still complains of shortness of breath and worsening left upper extremity swelling. Duplex scan is negative for DVT. Patient was seen by vascular surgery recommends compression stockings and Jv wrap to the left upper extremity. Patient is also complaining of left breast swelling and tender. The patient has been afebrile. Laboratory data showed WBC 8.1 hemoglobin 8.6 and platelets 213 sodium 132 potassium 5.9 chloride 97 bicarb is 24 BUN 55 creatinine 4.98 and blood sugar 67. Calcium 9.3 03/06/2025 Patient is lying in the bed. Awake alert and oriented. Still complains of left arm pain and also left breast discomfort with swelling. No fever no chills. No cough or sputum production. Complains of nausea. No gross vomiting. Patient is getting hemodialysis. Laboratory data showed sodium 136 potassium 4.9 chloride 95 bicarb is 28 BUN 39 and creatinine 4.08 and blood sugar 133. Calcium 9.0. 03/07 Patient still complains from some shortness of breath, she still has leg edema She is able to walk. She has good appetite but she is constipated despite being on Colace and MiraLAX No abdominal pain or tenderness She is complaining from left breast pain and tenderness x 1 week. No open wound or abnormal discharge. Ultrasound today showing possible mastoiditis per report. I reviewed the ultrasound by myself We will discharge patient on Augmentin and consult gynecology service Patient still getting hemodialysis for her end-stage renal disease and diastolic CHF with nephrology following closely Left upper extremity and graft is in Arch compression stocking Vascular surgery team evaluated the patient and signed off the case from their perspective Review of systems CONSTITUTIONAL: No fever, no malaise, no fatigue. GASTROINTESTINAL: No diarrhea, no nausea, no vomiting, no abdominal pain. Normoactive bowel sounds. NEUROLOGICAL: No headaches, no weakness, no numbness. HEMATOLOGICAL: Denies any bleeding or petechiae. GENITOURINARY: Denies any burning micturition, frequency, or urgency. MUSCULOSKELETAL/RHEUMATOLOGICAL: Denies any joint pain, swelling, or any muscle pain. ENDOCRINE: Denies any polyuria or polydipsia. Active Medications Generic Name Dose Route Start Last Admin Trade Name Freq PRN Reason Stop Dose Admin Acetaminophen 650 mg 02/26/25 18:37 03/07/25 08:25 Acetaminophen Tab 325 Mg Tab PO 650 mg Q4H PRN Administration Pain or Fever > 100.5 Albuterol/Ipratropium 3 ml 02/26/25 18:37 03/06/25 08:18 Ipratropium-Albuterol 3 Ml Neb INHALATION 3 ml RT-TID PRN Administration Shortness Of Breath Or Wheezing Alprazolam 0.25 mg 02/26/25 18:37 03/07/25 08:27 Alprazolam 0.25 Mg Tab PO 0.25 mg BID PRN Administration Anxiety Amoxicillin/Clavulanate Potassium 1 each 03/07/25 10:15 Amoxic-Pot Clav 875-125mg 1 Each Tab PO 03/17/25 10:14 Q12HR VY Protocol Aspirin 81 mg 02/27/25 08:00 03/07/25 08:26 Aspirin 81 Mg PO 81 mg DAILY@0800 VY Administration Atorvastatin Calcium 40 mg 02/26/25 21:00 03/06/25 20:26 Atorvastatin 40 Mg Tab PO 40 mg HS VY Administration Calcium Acetate 1,334 mg 02/27/25 07:30 03/07/25 06:52 Calcium Acetate 667 Mg Tab PO 1,334 mg TID-W/MEALS VY Administration Carvedilol 50 mg 02/26/25 21:00 03/07/25 06:54 Carvedilol 12.5 Mg Tab PO 50 mg BID-W/MEALS VY Administration Clonidine 0.3 mg 02/26/25 22:00 03/07/25 09:49 Clonidine Hcl 0.1 Mg Tab PO 0.3 mg TID VY Administration Colchicine 0.3 mg 02/27/25 09:00 03/07/25 09:48 Colchicine 0.6 Mg Each PO 0.3 mg DAILY VY Administration Darbepoetin Artur 40 mcg 03/03/25 10:00 03/03/25 15:52 Darbepoetin Artur 40 Mcg/0.4 Ml Syringe SQ 40 mcg Q7D VY Administration Dextrose/Water 25 ml 02/26/25 14:10 Dextrose 50% Syringe 50 Ml IVP PER PROTOCOL PRN Hypoglycemia Protocol Dextrose/Water 50 ml 02/26/25 14:10 Dextrose 50% Syringe 50 Ml IVP PER PROTOCOL PRN Hypoglycemia Protocol Divalproex Sodium 500 mg 02/27/25 08:00 03/07/25 08:29 Divalproex 500 Mg Tablet.Dr PO 500 mg BID@0800,1700 [facility] Administration Docusate Sodium 100 mg 02/27/25 08:00 03/07/25 08:28 Docusate 100 Mg Cap PO 100 mg DAILY@0800 VY Administration Famotidine 20 mg 02/27/25 09:00 03/07/25 08:30 Famotidine 20 Mg Tab PO 20 mg Q48H VY Administration Gabapentin 100 mg 02/26/25 21:00 03/07/25 08:29 Gabapentin 100 Mg Cap PO 100 mg BID VY Administration Heparin Sodium (Porcine) 5,000 unit 02/26/25 21:00 03/07/25 08:31 Heparin Sodium,Porcine 5,000 Unit/Ml 1 Ml Vial SQ Not Given Q12HR [facility] Insulin Glargine 14 unit 02/26/25 21:00 03/07/25 06:52 Insulin Glargine (Lantus) 100 Unit/Ml Syr SQ 14 unit BID@0700,2100 VY Administration Insulin Human Lispro 8 unit 02/27/25 07:30 03/07/25 06:52 Insulin Lispro (Humalog) 100 Unit/Ml 10 Ml Vl SQ 8 unit AC-TID VY Administration Isosorbide Mononitrate 120 mg 02/27/25 09:00 03/07/25 08:26 Isosorbide Mononitrate Er 60 Mg Tab.Er.24h PO 120 mg DAILY VY Administration Levothyroxine Sodium 176 mcg 02/27/25 06:00 03/07/25 05:07 Levothyroxine 88 Mcg Tab PO 176 mcg DAILY@0600 VY Administration Melatonin 1 mg 02/26/25 21:00 03/06/25 20:26 Melatonin 1 Mg Tab PO 1 mg HS VY Administration Metoclopramide HCl 5 mg 02/26/25 18:37 Metoclopramide 5 Mg Tab PO AC-TID PRN Nausea Miscellaneous Information 1 each 02/26/25 14:10 Magnesium Replacement Protocol 1 Each Misc MISCELLANE DAILY PRN Per Protocol Protocol Miscellaneous Information 1 each 02/26/25 14:10 Potassium Replacement Protocol 1 Each Misc MISCELLANE DAILY PRN Per Protocol Multivit/Ca Carb/B Cmplx/FA/Prenat 1 each 02/27/25 09:00 03/07/25 08:27 Folic Acid-Vit B Complex-Vit C 1 Cap PO 1 each DAILY VY Administration Nifedipine 60 mg 02/26/25 21:00 03/07/25 08:30 Nifedipine Xl 60 Mg Tab.Er.24 PO 60 mg BID VY Administration Ondansetron HCl 4 mg 02/26/25 22:47 03/06/25 23:21 Ondansetron Odt 4 Mg Tab PO 4 mg Q8HR PRN Administration Nausea And Vomiting Oxycodone/Acetaminophen 1 each 02/26/25 22:47 03/07/25 09:00 Oxycodone-Apap 10-325mg 1 Each Tab PO 1 each Q4HR PRN Administration Pain SCALE 6-10 Pantoprazole Sodium 40 mg 02/27/25 06:00 03/07/25 05:07 Pantoprazole 40 Mg Tablet PO 40 mg DAILY@0600 VY Administration Polyethylene Glycol 17 gm 02/27/25 12:30 03/06/25 14:22 Polyethylene Glycol 3350 17 Gm Powd.Pack PO 17 gm AC-LUNCH VY Administration Sertraline HCl 200 mg 02/27/25 08:00 03/07/25 08:38 Sertraline 100 Mg Tab PO 200 mg DAILY@0800 VY Administration Trazodone HCl 50 mg 02/26/25 21:00 03/06/25 20:26 Trazodone Hcl 50 Mg Tab PO 50 mg HS VY Administration Objective - Vital Signs Vital signs: Vital Signs Temp 97.4 F L 03/07/25 08:04 Pulse 65 03/07/25 08:04 Resp 16 03/07/25 08:04 BP 181/84 03/07/25 08:04 Pulse Ox 100 03/07/25 08:04 FiO2 Intake & Output 03/06/25 03/07/25 03/07/25 18:59 06:59 18:59 Intake Total 1210 960 240 Output Total 86513 Balance 1210 -9440 240 Weight 85 kg Intake: IV 30 20 Invasive Line 1 30 20 Oral 1180 540 240 Hemodialysis 400 Output: Hemodialysis 5400 Hemodialysis Net Amount 5000 Other: Voiding Method Toilet Toilet Toilet - Exam GENERAL: The patient is alert and oriented x3, not in any acute distress. Well developed, well nourished. HEENT: Pupils are round and equally reacting to light. EOMI. No scleral icterus. No conjunctival pallor. Normocephalic, atraumatic. No pharyngeal erythema. No thyromegaly. CARDIOVASCULAR: S1 and S2 present. No murmurs, rubs, or gallops. -PULMONARY: Chest is clear to auscultation, no wheezing , bilateral basal crackles. -lwft Breast exam(after patient gave verbal consent and in the presence of bedside nurse Maryan) no erythema or swelling no nipple abnormality. Tender nodule behind the left nipple ABDOMEN: Soft, nontender, nondistended, normoactive bowel sounds. No palpable organomegaly. MUSCULOSKELETAL: No joint swelling or deformity. -EXTREMITIES: No cyanosis, clubbing,. 2+ bilateral pitting leg edema. NEUROLOGICAL: Gross neurological examination did not reveal any focal deficits. SKIN: No rashes. no petechiae. - Labs CBC & Chem 7: 03/05/25 06:13 03/07/25 06:49 Labs: Abnormal Lab Results - Last 24 Hours (Table) 03/06/25 03/06/25 03/06/25 Range/Units 11:50 16:07 20:27 Sodium (137-145) mmol/L Potassium (3.5-5.1) mmol/L Chloride (98-107) mmol/L BUN (7-17) mg/dL Creatinine (0.52-1.04) mg/dL Glucose (74-99) mg/dL POC Glucose (mg/dL) 132 H 310 H 326 H (70-110) mg/dL 03/07/25 03/07/25 03/07/25 Range/Units 02:02 06:16 06:49 Sodium 132 L (137-145) mmol/L Potassium 5.4 H (3.5-5.1) mmol/L Chloride 91 L (98-107) mmol/L BUN 32 H (7-17) mg/dL Creatinine 3.42 H (0.52-1.04) mg/dL Glucose 340 H (74-99) mg/dL POC Glucose (mg/dL) 398 H 374 H (70-110) mg/dL Assessment and Plan Assessment: Worsening shortness of breath due to acute diastolic CHF and fluid overload ESRD on hemodialysis 4 times per week M TTS Left upper extremity worsening swelling. Rule out DVT. Venous Doppler was negative for DVT And dialysis graft appears patent, transfer text. Patient cleared by vascular surgery team Possible acute left mastoiditis Hypertension Acute acute on chronic CHF with preserved EF Hyperglycemia with uncontrolled diabetes type 1 Hyperkalemia secondary to CKD History of CVA/TIA with no residual weakness Diabetic gastroparesis and diabetic peripheral neuropathy History of optic neuritis Hypothyroidism Plan: Continue with hemodialysis per nephrology team Vascular surgery team signed off the case Continue with insulin Start Augmentin and consult cotton broker for left mastoiditis suspected Continue with insulin we will decrease her Lantus 14 units up to 15 units twice daily. Also increase her Humalog 8 units up to 12 units with meals Labs and medication were reviewed.. Continue same treatment. Continue with symptomatic treatment. Resume home medication. Monitor labs and vitals. DVT and GI prophylaxis. Further recommendations as per clinical course of the patient DVT prophylaxis: Subcutaneous heparin GI Prophylaxis: Pepcid Prognosis is guarded
[2025-03-07 11:30] LABS: Glucose,Whole Blood 224 mg/dL (70-110)
[2025-03-07] MEDS: INSULIN LISPRO (HumaLOG) 100 UNIT/ML 10 mL VL SQ SCH (11:49)
[2025-03-07] MEDS: AMOXIC-POT CLAV 875-125MG 1 EACH TAB PO SCH (11:50)
--- NOTE | 2025-03-07 14:18 | P.GSCN ---
History of Present Illness Consult date: 03/07/25 History of present illness: CHIEF COMPLAINT: Shortness of breath HISTORY OF PRESENT ILLNESS: This is a 35-year-old female with known end-stage renal disease on hemodialysis and is a diabetic. She presented to the ER with worsening shortness of breath. Patient did have evidence of fluid overload. She is getting hemodialysis currently. Surgical service has been consulted for left breast mastitis. Patient reports that she has had issues with pain and swelling in her left breast intermittently over the last 2 years. She has received no treatment for it. She reports her was over 2 years ago and never did breast-feed. Patient reports over the last week she has had increased pain and swelling again in this left breast. There is no redness. She reports there has been some drainage from the left nipple. Left breast ultrasound was completed reporting left mastitis but no fluid collection. PAST MEDICAL HISTORY: Diabetes Mellitus, GERD/Reflux, Hypertension, end-stage renal disease on hemodialysis, Seizure Disorder, Thyroid Disorder, hypertension, CVA, C. difficile PAST SURGICAL HISTORY: Adenoidectomy, Section, Cholecystectomy, Orthopedic Surgery, Tonsillectomy MEDICATIONS: See below ALLERGIES: See below SOCIAL HISTORY: No illicit drug use. REVIEW OF SYSTEMS: CONSTITUTIONAL: Denies fever or chills. HEENT: Denies blurred vision, vision changes, or eye pain. Denies hemoptysis CARDIOVASCULAR: Denies chest pain or pressure. RESPIRATORY: No shortness of breath. GASTROINTESTINAL: See HPI for pertinent findings HEMATOLOGIC: Denies bleeding disorders. GENITOURINARY: Denies any blood in urine or increased urinary frequency. SKIN: Denies pruitis. Denies rash. PHYSICAL EXAM: VITAL SIGNS: Reviewed GENERAL: Well-developed in no acute distress. BREAST: Breasts are symmetrical. Left breast no erythema. Mild swelling noted at the nipple and 7 o'clock position. Tenderness with palpation at the nipple and 7 o'clock position. The nipple is inverted. There is a small pinhole area on the medial aspect of the left nipple. Small scab area. No drainage noted at this time. NEUROLOGIC: Alert and oriented. Cranial nerves II through XII grossly intact. LABORATORY DATA: WBC 12.57 down to 8.11 Sodium 132 potassium 5.4 creatinine 3.42 Glucose 224 IMAGING: Left breast ultrasound edematous breast tissue seen throughout without unusual collection. Posterior nipple shadowing without mass. Findings suggest mast itis. ASSESSMENT: 1. Left breast mastitis 2. Diabetic PLAN: - Continue antibiotics - Apply warm compresses - Shower daily. Keep area clean and dry - Continue to monitor Physician Teletype Installer note has been reviewed by physician. Signing provider agrees with the documented findings, assessment, and plan of care. Attestation Patient seen and examined at bedside on 03/08/2025. Presented with chief complaint of shortness of breath. She states that over the past 2 years she has had intermittent pain in the left breast. She developed this after . She was evaluated by breast specialist at that time with no plan for any surgical intervention. She occasionally has drainage from the nipple. During exam there is no erythema and mild swelling noted at the nipple. Unable to express any drainage. Mild inversion of the portion of the nipple is also noted. Patient is on oral antibiotics and recommend continuing this. Apply warm compresses. Ultrasound performed with edematous tissue noted and no drainable fluid collection. Once patient is treated for her current complaints, she can follow-up as an outpatient for any further surgical care. 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 Past Anesthesia/Blood Transfusion Reactions: Previous Problems w/ Anesthesia Additional Past Anesthesia/Blood Transfusion Reaction / Comm: confusion Past Psychological History: Anxiety, Depression Smoking Status: Current every day smoker Past Alcohol Use History: None Reported Past Drug Use History: Marijuana - Past Family History Father History Unknown: Yes Family Medical History: Unable to Obtain Mother History Unknown: Yes Family Medical History: No Reported History Grandfather History Unknown: Yes Family Medical History: Coronary Artery Disease (CAD) Additional Family Medical History / Comment(s): Diabetes mellitus type 2 Medications and Allergies Home Medications Medication Instructions Recorded Confirmed Type Docusate [Colace] 100 mg PO DAILY@0800 02/05/24 02/26/25 History Lidocaine 4% Patch 1 patch TOPICAL DAILY@0800 02/05/24 02/26/25 History Magnesium Hydroxide [Milk of 7,200 mg PO DAILY PRN 02/05/24 02/26/25 History Magnesia Concentrate] Ipratropium-Albuterol Nebulize 3 ml INHALATION RT-TID PRN each 02/14/24 02/26/25 Rx [Duoneb 0.5 mg-3 mg/3 ml Soln] polyethylene glycoL 3350 [Miralax] 17 gm PO AC-LUNCH #527 gm 02/14/24 02/26/25 Rx Acetaminophen [Tylenol] 650 mg PO Q4H PRN 02/18/24 02/26/25 History Biotene Dry Mouth/Throat 10 ml PO BID PRN 02/18/24 02/26/25 History Melatonin 1 mg PO HS tab 02/25/24 02/26/25 Rx Loratadine [Claritin] 5 mg PO DAILY tab 03/30/24 02/26/25 Rx Aspirin 81 mg PO DAILY@0800 #30 tab 05/18/24 02/26/25 Rx Famotidine [Pepcid] 20 mg PO BID #60 tab 07/11/24 02/26/25 Rx Levothyroxine Sodium [Synthroid] 175 mcg PO DAILY@59908/14/24 02/26/25 History Metoclopramide [Reglan] 5 mg PO AC-TID PRN 08/14/24 02/26/25 History Pantoprazole [Protonix] 40 mg PO DAILY@59908/14/24 02/26/25 History Sertraline [Zoloft] 200 mg PO DAILY@0800 08/14/24 02/26/25 History Colchicine [Colcrys] 0.3 mg PO DAILY #15 each 09/23/24 02/26/25 Rx Ondansetron Odt [Zofran ODT] 4 mg PO Q8HR PRN 11/02/24 02/26/25 History Atorvastatin [Lipitor] 40 mg PO HS #0 11/23/24 02/26/25 Rx oxyCODONE-APAP 10-325MG [Percocet 1 tab PO Q4HR PRN #18 tab 11/23/24 02/26/25 Rx 10-325 mg] Folic Acid/Vit B Complex and C 0.8 mg PO DAILY 12/20/24 02/26/25 History [Davina-Mayte Tablet] traZODone HCL [Desyrel] 50 mg PO HS #20 tab 01/01/25 02/26/25 Rx Isosorbide Mononitrate ER [Imdur] 120 mg PO DAILY #60 tab 01/02/25 02/26/25 Rx NIFEdipine XL [Procardia XL] 60 mg PO BID 30 Days #60 tab 01/02/25 02/26/25 Rx Gabapentin [Neurontin] 100 mg PO BID 30 Days #60 cap 01/03/25 02/26/25 Rx Linagliptin [Tradjenta] 5 mg PO DAILY #30 tab 01/03/25 02/26/25 Rx Insulin Lispro [humaLOG Kwikpen] 8 unit SQ AC-TID 01/22/25 02/26/25 History Insulin Lispro [humaLOG Kwikpen] See Protocol SQ AC-TID 01/22/25 02/26/25 H istory cloNIDine HCL [Catapres] 0.3 mg PO TID 01/22/25 02/26/25 History Butalb/APAP/Caff 50-325-40Mg 1 tab PO Q4HR PRN #12 tab 01/26/25 02/26/25 Rx [Fioricet 50-325-40] carvediloL [Coreg] 50 mg PO BID #120 tablet 02/15/25 02/26/25 Rx Calcium Acetate [PhosLo] 1,334 mg PO TID-W/MEALS 30 Days 02/19/25 02/26/25 Rx #360 tab Ipratropium-Albuterol Nebulize 3 ml INHALATION RT-TID #100 each 02/19/25 02/26/25 Rx [Duoneb 0.5 mg-3 mg/3 ml Soln] ALPRAZolam [Xanax] 0.25 mg PO BID PRN 02/26/25 02/26/25 History Divalproex Sodium [Depakote] 500 mg PO BID@0800,1700 02/26/25 02/26/25 History Insulin Glargine (Lantus) [Lantus 14 unit SQ BID 02/26/25 02/26/25 History Vial] Lidocaine 5% Cream 1 applic TOPICAL MOTUWETHSA 02/26/25 02/26/25 History Methoxy Peg-Epoetin Beta [Mircera] 100 mcg SQ Q14D 02/26/25 02/26/25 History Allergies Allergy/AdvReac Type Severity Reaction Status Date / Time hydromorphone HCl Allergy Anaphylaxis Verified 02/26/25 14:57 [From Dilaudid] propoxyphene Allergy Rash/Hives Verified 02/26/25 14:57 [From Darvocet-N] tramadol Allergy Anaphylaxis Verified 02/26/25 14:57 ibuprofen [From Motrin] AdvReac unable to Verified 02/26/25 14:57 take due to kidney disease venom-honey bee AdvReac passes out Verified 02/26/25 14:57 [bee venom (honey bee)] Surgical - Exam Osteopathic Statement: *. No significant issues noted on an osteopathic structural exam other than those noted in the History and Physical/Consult. Vital Signs Temp Pulse Resp BP Pulse Ox 97.1 F L 74 20 158/85 96 02/26/25 13:10 02/26/25 13:10 02/26/25 13:10 02/26/25 13:10 02/26/25 13:10 Results - Labs 03/05/25 06:13 03/07/25 06:49 Abnormal Lab Results - Last 24 Hours (Table) 03/06/25 03/06/25 03/07/25 Range/Units 16:07 20:27 02:02 Sodium (137-145) mmol/L Potassium (3.5-5.1) mmol/L Chloride (98-107) mmol/L BUN (7-17) mg/dL Creatinine (0.52-1.04) mg/dL Glucose (74-99) mg/dL POC Glucose (mg/dL) 310 H 326 H 398 H (70-110) mg/dL 03/07/25 03/07/25 03/07/25 Range/Units 06:16 06:49 11:28 Sodium 132 L (137-145) mmol/L Potassium 5.4 H (3.5-5.1) mmol/L Chloride 91 L (98-107) mmol/L BUN 32 H (7-17) mg/dL Creatinine 3.42 H (0.52-1.04) mg/dL Glucose 340 H (74-99) mg/dL POC Glucose (mg/dL) 374 H 224 H (70-110) mg/dL Diabetes panel 03/07/25 Range/Units 06:49 Sodium 132 L (137-145) mmol/L Potassium 5.4 H (3.5-5.1) mmol/L Chloride 91 L (98-107) mmol/L Carbon Dioxide 27 (22-30) mmol/L BUN 32 H (7-17) mg/dL Creatinine 3.42 H (0.52-1.04) mg/dL Glucose 340 H (74-99) mg/dL Calcium 9.5 (8.4-10.2) mg/dL Calcium panel 03/07/25 Range/Units 06:49 Calcium 9.5 (8.4-10.2) mg/dL Pituitary panel 03/07/25 Range/Units 06:49 Sodium 132 L (137-145) mmol/L Potassium 5.4 H (3.5-5.1) mmol/L Chloride 91 L (98-107) mmol/L Carbon Dioxide 27 (22-30) mmol/L BUN 32 H (7-17) mg/dL Creatinine 3.42 H (0.52-1.04) mg/dL Glucose 340 H (74-99) mg/dL Calcium 9.5 (8.4-10.2) mg/dL Adrenal panel 03/07/25 Range/Units 06:49 Sodium 132 L (137-145) mmol/L Potassium 5.4 H (3.5-5.1) mmol/L Chloride 91 L (98-107) mmol/L Carbon Dioxide 27 (22-30) mmol/L BUN 32 H (7-17) mg/dL Creatinine 3.42 H (0.52-1.04) mg/dL Glucose 340 H (74-99) mg/dL Calcium 9.5 (8.4-10.2) mg/dL
[2025-03-07 16:18] LABS: Glucose,Whole Blood 149 mg/dL (70-110)
[2025-03-07 20:23] LABS: Glucose,Whole Blood 138 mg/dL (70-110)
[2025-03-07] MEDS: INSULIN GLARGINE (LANTUS) 100 UNIT/ML SYR SQ SCH (20:59)
[2025-03-08 06:02] LABS: Glucose,Whole Blood 175 mg/dL (70-110)
--- NOTE | 2025-03-08 09:02 | P.PN ---
Subjective Patient is a 35-year-old female with a past medical history of ESRD on hemodialysis 4 times a week, M TTS with right subclavian permacath awaiting p marcela and liver transplant , hypertension, diabetes type 2 insulin-dependent, hypothyroidism, diabetic neuropathy, gastroparesis,, anxiety/depression, currently everyday smoker and history of marijuana and methamphetamine use. Patient was recently discharged from the hospital was admitted due to hype rtensive emergency and pulmonary edema and fluid overload. Patient presents to ER with complaints of worsening shortness of breath since yesterday. Last hemodialysis was on Wednesday. Also complains of cough and leg swelling. Complains of nausea. No episodes of vomiting. Denies any chest pain or palpitations. No fever no chills. Patient states that she has been taking her insulin regimen as recommended. Chest x-ray showed cardiomegaly with patchy interstitial prominence suggesting CHF exacerbation. Correlate clinically. EKG showed sinus rhythm Laboratory data showed WBC 11.2 hemoglobin 10.0 and platelets 259 sodium 125 potassium 5.2 with slight hemolysis, chloride 82 BUN 74 creatinine 4.96 and blood sugar 612 anion gap 18 and bicarb is 25 lactic acid 2.1 AST 50 ALT 112 alk phos 211 and proBNP 81,109, acetone negative 02/27/2025 Patient is lying in the bed. Awake alert and oriented x 3. No complaints of chest pain. Shortness of breath is improving. Complains of nausea. No cough or sputum production. Patient underwent hemodialysis yesterday and is also scheduled today. No fever no chills. Blood sugar is controlled. Laboratory data showed WBC 9.6 hemoglobin 9.6 and platelets 228 sodium 129 potassium 4.7 chloride 90 bicarb is 26 BUN 55 and creatinine 4.13 and blood s ugar 189 and calcium 9.1. Nephrology is on board. 02/28/2025 Patient is resting in the bed. Awake alert and oriented x 3. No complaints of chest pain. Shortness of breath is much improved. Able to tolerate oral diet. No cough or sputum production. Blood pressure is also improved. Patient is requiring 2 L oxygen via nasal cannula. CBG went down to 49 around 1130 which is improved now. Hemodialysis tomorrow. 03/01/2025 Patient is lying in the bed. Awake alert and oriented x 3. Complains of significant cough and whitish to brownish sputum production. Also complains of nausea. Patient did have hemodialysis yesterday with 2.5 L of ultrafiltration. Again scheduled today. No complaints of chest pain. Shortness of breath is better. Patient has been afebrile. Laboratory data reviewed. 03/02/2025 Patient is lying in the bed awake alert and oriented x 3. She complains of cough and shortness of breath. Patient underwent hemodialysis yesterday and next hemodialysis session tomorrow. No complaints of chest pain. Patient has been afebrile. Repeat chest x-ray showed improvement in pulmonary vascular congestion. Patient is tolerating oral diet. Lab data reviewed. 03/03/2025 Patient is lying in the bed. Awake alert and oriented. Patient states that she was nauseous this morning. Also complains of shortness of breath still. No episodes of vomiting. No fever no chills. Patient is undergoing hemodialysis today. Lab data showed WBC 12.5 hemoglobin 8.5 and platelets 239 sodium 131 potassium 5.7 chloride 93 bicarb is 25 BUN 57 and creatinine 5.45 and blood sugar 207. Phosphorus 5.4. Nephrology is on board. 03/04/2025 Patient is lying in the bed but awake alert and oriented. Complains of left upper extremity swelling. Rates patient is still having bilateral swelling. Scheduled for hemodialysis. Nephrology on board. Patient is also on fluid restriction. Laboratory data showed WBC 8.2 hemoglobin 8.9 and platelets 240 sodium 133 potassium 4.9 chloride 86 bicarbonate 26 BUN 37 creatinine 4.1 and blood sugar 130. Nephrology is on board. 03/05/2025. Patient is resting in the bed. Awake alert and oriented. Still complains of shortness of breath and worsening left upper extremity swelling. Duplex scan is negative for DVT. Patient was seen by vascular surgery recommends compression stockings and Jv wrap to the left upper extremity. Patient is also complaining of left breast swelling and tender. The patient has been afebrile. Laboratory data showed WBC 8.1 hemoglobin 8.6 and platelets 213 sodium 132 potassium 5.9 chloride 97 bicarb is 24 BUN 55 creatinine 4.98 and blood sugar 67. Calcium 9.3 03/06/2025 Patient is lying in the bed. Awake alert and oriented. Still complains of left arm pain and also left breast discomfort with swelling. No fever no chills. No cough or sputum production. Complains of nausea. No gross vomiting. Patient is getting hemodialysis. Laboratory data showed sodium 136 potassium 4.9 chloride 95 bicarb is 28 BUN 39 and creatinine 4.08 and blood sugar 133. Calcium 9.0. 03/07 Patient still complains from some shortness of breath, she still has leg edema She is able to walk. She has good appetite but she is constipated despite being on Colace and MiraLAX No abdominal pain or tenderness She is complaining from left breast pain and tenderness x 1 week. No open wound or abnormal discharge. Ultrasound today showing possible mastoiditis per report. I reviewed the ultrasound by myself We will discharge patient on Augmentin and consult gynecology service Patient still getting hemodialysis for her end-stage renal disease and diastolic CHF with nephrology following closely Left upper extremity and graft is in Arch compression stocking Vascular surgery team evaluated the patient and signed off the case from their perspective 03/08 Patient sugars better controlled after increasing her Lantus and Humalog doses She is still complaining from cough and some chest pain with cough, exertional dyspnea related to her diastolic CHF although it is improving. She is getting hemodialysis today. No significant leg edema She still has left upper extremity pain, she was already evaluated by vascular surgery team and she is getting hemodialysis currently through her graft in the left upper extremity. Patient will require follow-up as an outpatient vascular surgery team She is placed on Augmentin for possible left mastitis. Yesterday her php developer Dr. Abdi Stearns does not think they need to see the patient as she was not taking control pills. He recommended surgical team consult which was placed for further evaluation and recommendation. Review of systems CONSTITUTIONAL: No fever, no malaise, no fatigue. GASTROINTESTINAL: No diarrhea, no nausea, no vomiting, no abdominal pain. No rmoactive bowel sounds. NEUROLOGICAL: No headaches, no weakness, no numbness. HEMATOLOGICAL: Denies any bleeding or petechiae. GENITOURINARY: Denies any burning micturition, frequency, or urgency. MUSCULOSKELETAL/RHEUMATOLOGICAL: Denies any joint pain, swelling, or any muscle pain. ENDOCRINE: Denies any polyuria or polydipsia. Active Medications Generic Name Dose Route Start Last Admin Trade Name Freq PRN Reason Stop Dose Admin Acetaminophen 650 mg 02/26/25 18:37 03/07/25 08:25 Acetaminophen Tab 325 Mg Tab PO 650 mg Q4H PRN Administration Pain or Fever > 100.5 Albuterol/Ipratropium 3 ml 02/26/25 18:37 03/06/25 08:18 Ipratropium-Albuterol 3 Ml Neb INHALATION 3 ml RT-TID PRN Administration Shortness Of Breath Or Wheezing Alprazolam 0.25 mg 02/26/25 18:37 03/07/25 08:27 Alprazolam 0.25 Mg Tab PO 0.25 mg BID PRN Administration Anxiety Amoxicillin/Clavulanate Potassium 1 each 03/07/25 10:15 Amoxic-Pot Clav 875-125mg 1 Each Tab PO 03/17/25 10:14 Q12HR VY Protocol Aspirin 81 mg 02/27/25 08:00 03/07/25 08:26 Aspirin 81 Mg PO 81 mg DAILY@0800 VY Administration Atorvastatin Calcium 40 mg 02/26/25 21:00 03/06/25 20:26 Atorvastatin 40 Mg Tab PO 40 mg HS VY Administration Calcium Acetate 1,334 mg 02/27/25 07:30 03/07/25 06:52 Calcium Acetate 667 Mg Tab PO 1,334 mg TID-W/MEALS VY Administration Carvedilol 50 mg 02/26/25 21:00 03/07/25 06:54 Carvedilol 12.5 Mg Tab PO 50 mg BID-W/MEALS VY Administration Clonidine 0.3 mg 02/26/25 22:00 03/07/25 09:49 Clonidine Hcl 0.1 Mg Tab PO 0.3 mg TID VY Administration Colchicine 0.3 mg 02/27/25 09:00 03/07/25 09:48 Colchicine 0.6 Mg Each PO 0.3 mg DAILY VY Administration Darbepoetin Artur 40 mcg 03/03/25 10:00 03/03/25 15:52 Darbepoetin Artur 40 Mcg/0.4 Ml Syringe SQ 40 mcg Q7D VY Administration Dextrose/Water 25 ml 02/26/25 14:10 Dextrose 50% Syringe 50 Ml IVP PER PROTOCOL PRN Hypoglycemia Protocol Dextrose/Water 50 ml 02/26/25 14:10 Dextrose 50% Syringe 50 Ml IVP PER PROTOCOL PRN Hypoglycemia Protocol Divalproex Sodium 500 mg 02/27/25 08:00 03/07/25 08:29 Divalproex 500 Mg Tablet.Dr PO 500 mg BID@0800,1700 VY Administration Docusate Sodium 100 mg 02/27/25 08:00 03/07/25 08:28 Docusate 100 Mg Cap PO 100 mg DAILY@0800 VY Administration Famotidine 20 mg 02/27/25 09:00 03/07/25 08:30 Famotidine 20 Mg Tab PO 20 mg Q48H VY Administration Gabapentin 100 mg 02/26/25 21:00 03/07/25 08:29 Gabapentin 100 Mg Cap PO 100 mg BID VY Administration Heparin Sodium (Porcine) 5,000 unit 02/26/25 21:00 03/07/25 08:31 Heparin Sodium,Porcine 5,000 Unit/Ml 1 Ml Vial SQ Not Given Q12HR VY Insulin Glargine 14 unit 02/26/25 21:00 03/07/25 06:52 Insulin Glargine (Lantus) 100 Unit/Ml Syr SQ 14 unit BID@0700,2100 VY Administration Insulin Human Lispro 8 unit 02/27/25 07:30 03/07/25 06:52 Insulin Lispro (Humalog) 100 Unit/Ml 10 Ml Vl SQ 8 unit AC-TID VY Administration Isosorbide Mononitrate 120 mg 02/27/25 09:00 03/07/25 08:26 Isosorbide Mononitrate Er 60 Mg Tab.Er.24h PO 120 mg DAILY VY Administration Levothyroxine Sodium 176 mcg 02/27/25 06:00 03/07/25 05:07 Levothyroxine 88 Mcg Tab PO 176 mcg DAILY@0600 VY Administration Melatonin 1 mg 02/26/25 21:00 03/06/25 20:26 Melatonin 1 Mg Tab PO 1 mg HS VY Administration Metoclopramide HCl 5 mg 02/26/25 18:37 Metoclopramide 5 Mg Tab PO AC-TID PRN Nausea Miscellaneous Information 1 each 02/26/25 14:10 Magnesium Replacement Protocol 1 Each Misc MISCELLANE DAILY PRN Per Protocol Protocol Miscellaneous Information 1 each 02/26/25 14:10 Potassium Replacement Protocol 1 Each Misc MISCELLANE DAILY PRN Per Protocol Multivit/Ca Carb/B Cmplx/FA/Prenat 1 each 02/27/25 09:00 03/07/25 08:27 Folic Acid-Vit B Complex-Vit C 1 Cap PO 1 each DAILY VY Administration Nifedipine 60 mg 02/26/25 21:00 03/07/25 08:30 Nifedipine Xl 60 Mg Tab.Er.24 PO 60 mg BID VY Administration Ondansetron HCl 4 mg 02/26/25 22:47 03/06/25 23:21 Ondansetron Odt 4 Mg Tab PO 4 mg Q8HR PRN Administration Nausea And Vomiting Oxycodone/Acetaminophen 1 each 02/26/25 22:47 03/07/25 09:00 Oxycodone-Apap 10-325mg 1 Each Tab PO 1 each Q4HR PRN Administration Pain SCALE 6-10 Pantoprazole Sodium 40 mg 02/27/25 06:00 03/07/25 05:07 Pantoprazole 40 Mg Tablet PO 40 mg DAILY@0600 [facility] Administration Polyethylene Glycol 17 gm 02/27/25 12:30 03/06/25 14:22 Polyethylene Glycol 3350 17 Gm Powd.Pack PO 17 gm AC-LUNCH VY Administration Sertraline HCl 200 mg 02/27/25 08:00 03/07/25 08:38 Sertraline 100 Mg Tab PO 200 mg DAILY@0800 VY Administration Trazodone HCl 50 mg 02/26/25 21:00 03/06/25 20:26 Trazodone Hcl 50 Mg Tab PO 50 mg HS VY Administration Objective - Vital Signs Vital signs: Vital Signs Temp 97.3 F L 03/08/25 07:30 Pulse 68 03/08/25 07:30 Resp 16 03/08/25 07:30 BP 164/91 03/08/25 07:30 Pulse Ox 100 03/08/25 07:30 FiO2 Intake & Output 03/07/25 03/08/25 03/08/25 18:59 06:59 18:59 Intake Total 1858 1020 Output Total 7400 Balance -5542 1020 Weight 86 kg Intake: Oral 1458 1020 Hemodialysis 400 Output: Hemodialysis 3900 Hemodialysis Net Amount 3500 Other: Voiding Method Toilet Toilet # Voids 1 - Exam GENERAL: The patient is alert and oriented x3, not in any acute distress. Well developed, well nourished. HEENT: Pupils are round and equally reacting to light. EOMI. No scleral icterus. No conjunctival pallor. Normocephalic, atraumatic. No pharyngeal erythema. No thyromegaly. CARDIOVASCULAR: S1 and S2 present. No murmurs, rubs, or gallops. -PULMONARY: Chest is clear to auscultation, no wheezing , bilateral basal crackles. -lwft Breast exam(after patient gave verbal consent and in the presence of bedside nurse Maryan) no erythema or swelling no nipple abnormality. Tender nodule behind the left nipple ABDOMEN: Soft, nontender, nondistended, normoactive bowel sounds. No palpable organomegaly. MUSCULOSKELETAL: No joint swelling or deformity. -EXTREMITIES: No cyanosis, clubbing,. 2+ bilateral pitting leg edema. NEUROLOGICAL: Gross neurological examination did not reveal any focal deficits. SKIN: No rashes. no petechiae. - Labs CBC & Chem 7: 03/05/25 06:13 03/07/25 06:49 Labs: Abnormal Lab Results - Last 24 Hours (Table) 03/07/25 03/07/25 03/07/25 Range/Units 11:28 16:13 20:22 POC Glucose (mg/dL) 224 H 149 H 138 H (70-110) mg/dL 03/08/25 Range/Units 06:00 POC Glucose (mg/dL) 175 H (70-110) mg/dL Assessment and Plan Assessment: acute left mastitis Worsening shortness of breath due to acute diastolic CHF and fluid overload ESRD on hemodialysis 4 times per week M TTS Left upper extremity worsening swelling. Rule out DVT. Venous Doppler was negative for DVT And dialysis graft appears patent, transfer text. Patient cleared by vascular surgery team Hypertension Acute acute on chronic CHF with preserved EF Hyperglycemia with uncontrolled diabetes type 1 Hyperkalemia secondary to CKD History of CVA/TIA with no residual weakness Diabetic gastroparesis and diabetic peripheral neuropathy History of optic neuritis Hypothyroidism Plan: Continue with hemodialysis per nephrology team Vascular surgery team signed off the case Continue with insulin Start Augmentin and consult general surgery team for left mastoiditis suspected Continue with insulin we will decrease her Lantus 14 units up to 15 units twice daily. Also increase her Humalog 8 units up to 12 units with meals Labs and medication were reviewed.. Continue same treatment. Continue with symptomatic treatment. Resume home medication. Monitor labs and vitals. DVT and GI prophylaxis. Further recommendations as per clinical course of the patient DVT prophylaxis: Subcutaneous heparin GI Prophylaxis: Pepcid Prognosis is guarded
[2025-03-08 11:14] LABS: Glucose,Whole Blood 155 mg/dL (70-110)
--- NOTE | 2025-03-08 11:21 | P.PN ---
Subjective Patient is seen in follow-up for end-stage renal disease. Tolerating dialysis well. Hemodynamically stable. No active complaints. Vital signs are stable. General: No acute distress. HEENT: Head exam is unremarkable. On nasal cannula. LUNGS: Scattered rhonchi. HEART: Rate and Rhythm are regular. ABDOMEN: Nontender. EXTREMITITES: 1+ edema in lower extremities. Objective - Vital Signs Vital signs: Vital Signs Temp 98.3 F 03/08/25 10:49 Pulse 68 03/08/25 10:49 Resp 16 03/08/25 10:49 BP 144/81 03/08/25 10:49 Pulse Ox 100 03/08/25 07:30 FiO2 Intake & Output 03/07/25 03/08/25 03/08/25 18:59 06:59 18:59 Intake Total 1858 1020 636 Output Total 7400 8400 Balance -5494 1774 -7864 Weight 86 kg Intake: Oral 1458 1020 236 Hemodialysis 400 400 Output: Hemodialysis 3900 4400 Hemodialysis Net Amount 3500 4000 Other: Voiding Method Toilet Toilet # Voids 1 - Labs CBC & Chem 7: 03/05/25 06:13 03/07/25 06:49 Labs: Abnormal Lab Results - Last 24 Hours (Table) 03/07/25 03/07/25 03/07/25 Range/Units 11:28 16:13 20:22 POC Glucose (mg/dL) 224 H 149 H 138 H (70-110) mg/dL 03/08/25 03/08/25 Range/Units 06:00 11:12 POC Glucose (mg/dL) 175 H 155 H (70-110) mg/dL Assessment and Plan Plan: Assessment: 1. End-stage renal disease maintained on hemodialysis on Wednesday. 2. Volume overload. Improving with ultrafiltration. 3. Hyperkalemia secondary to chronic kidney disease. Expect improvement postdialysis. 4. Anemia of chronic kidney disease. On Aranesp. 5. Hypertension with chronic kidney disease. Stable. 6. Chronic kidney disease mineral bone disease. On PhosLo. 7. History of pericardial effusion maintained on colchicine. Plan: Currently seen while undergoing hemodialysis. Advised patient to maintain low-salt diet and fluid restriction of less than 50 ounces per day upon discharge. Also advised her to maintain a low potassium diet. Blood glucose control. Add Lokelma.
--- NOTE | 2025-03-08 13:18 | P.PN ---
Subjective Progress Note Date: 03/08/25 SURGICAL PROGRESS NOTE CHIEF COMPLAINT: Fluid overload HISTORY OF PRESENT ILLNESS: Patient is receiving hemodialysis this morning. She does complain of pain in her left breast. Afebrile. PHYSICAL EXAM: VITAL SIGNS: Reviewed. GENERAL: Well-developed in no acute distress. BREAST: Breasts are symmetrical. Left breast no erythema. Mild swelling noted at the nipple and 7 o'clock position. Tenderness with palpation at the nipple and 7 o'clock position. The nipple is inverted. There is a small pinhole area on the medial aspect of the left nipple. Small scab area. No drainage noted at this time. NEUROLOGIC: Alert and oriented. Cranial nerves II through XII grossly intact. ASSESSMENT: 1. Left breast mastitis 2. Diabetes PLAN: - No surgical intervention planned at this time - Continue antibiotics - Apply warm compresses - Shower daily. Keep area clean and dry Physician Counselor/Art Therapist note has been reviewed by physician. Signing provider agrees with the documented findings, assessment, and plan of care. Attestation Patient seen and examined at bedside on 03/08/2025. Presented with chief complaint of shortness of breath. She states that over the past 2 years she has had intermittent pain in the left breast. She developed this after . She was evaluated by breast specialist at that time with no plan for any surgical intervention. She occasionally has drainage from the nipple. During exam there is no erythema and mild swelling noted at the nipple. Unable to expr ess any drainage. Mild inversion of the portion of the nipple is also noted. Patient is on oral antibiotics and recommend continuing this. Apply warm compresses. Ultrasound performed with edematous tissue noted and no drainable fluid collection. Once patient is treated for her current complaints, she can follow-up as an outpatient for any further surgical care. Mika Genao DO Objective - Vital Signs Vital signs: Vital Signs Temp 97.4 F L 03/08/25 11:35 Pulse 70 03/08/25 11:35 Resp 16 03/08/25 11:35 BP 168/82 03/08/25 11:35 Pulse Ox 100 03/08/25 11:35 FiO2 Intake & Output 03/07/25 03/08/25 03/08/25 18:59 06:59 18:59 Intake Total 1858 1020 872 Output Total 7400 8400 Balance -5542 1020 -7599 Weight 86 kg Intake: Oral 1458 1020 472 Hemodialysis 400 400 Output: Hemodialysis 3900 4400 Hemodialysis Net Amount 3500 4000 Other: Voiding Method Toilet Toilet Toilet # Voids 1 - Labs CBC & Chem 7: 03/05/25 06:13 03/07/25 06:49 Labs: Abnormal Lab Results - Last 24 Hours (Table) 03/07/25 03/07/25 03/08/25 Range/Units 16:13 20:22 06:00 POC Glucose (mg/dL) 149 H 138 H 175 H (70-110) mg/dL 03/08/25 Range/Units 11:12 POC Glucose (mg/dL) 155 H (70-110) mg/dL
[2025-03-08 16:18] LABS: Glucose,Whole Blood 142 mg/dL (70-110)
[2025-03-08 19:55] LABS: Glucose,Whole Blood 99 mg/dL (70-110)
[2025-03-09 06:01] LABS: Glucose,Whole Blood 118 mg/dL (70-110)
[2025-03-09] MEDS: SODIUM ZIRCONIUM CYCLOSILICATE 10 GM PACKET PO SCH (10:59)
--- NOTE | 2025-03-09 11:19 | P.PN ---
Subjective Patient is seen in follow-up for end-stage renal disease. Tolerated 4 L ultrafiltration yesterday. Hemodynamically stable. No active complaints. Vital signs are stable. General: No acute distress. HEENT: Head exam is unremarkable. On nasal cannula. LUNGS: Scattered rhonchi. HEART: Rate and Rhythm are regular. ABDOMEN: Nontender. EXTREMITITES: 1+ edema in lower extremities. Objective - Vital Signs Vital signs: Vital Signs Temp 97.5 F L 03/09/25 07:20 Pulse 70 03/09/25 09:15 Resp 16 03/09/25 07:20 BP 164/91 03/09/25 07:20 Pulse Ox 96 03/09/25 09:07 FiO2 Intake & Output 03/08/25 03/09/25 03/09/25 18:59 06:59 18:59 Intake Total 872 Output Total 8400 Balance -7528 Weight 78.1 kg Intake: Oral 472 Hemodialysis 400 Output: Hemodialysis 4400 Hemodialysis Net Amount 4000 Other: Voiding Method Toilet Toilet # Voids 0 - Labs CBC & Chem 7: 03/05/25 06:13 03/07/25 06:49 Labs: Abnormal Lab Results - Last 24 Hours (Table) 03/08/25 03/09/25 Range/Units 16:17 06:00 POC Glucose (mg/dL) 142 H 118 H (70-110) mg/dL Assessment and Plan Plan: Assessment: 1. End-stage renal disease maintained on hemodialysis on Wednesday. 2. Volume overload. Improving with ultrafiltration. 3. Hyperkalemia secondary to chronic kidney disease. Expect improvement postdialysis. 4. Anemia of chronic kidney disease. On Aranesp. 5. Hypertension with chronic kidney disease. Stable. 6. Chronic kidney disease mineral bone disease. On PhosLo. 7. History of pericardial effusion maintained on colchicine. Plan: Additional treatment of hemodialysis today. Another treatment tomorrow per her outpatient schedule. Advised patient to maintain low-salt diet and fluid restriction of less than 50 ounces per day upon discharge. Also advised her to maintain a low potassium diet. Blood glucose control. Maintain Lokelma.
[2025-03-09 11:26] LABS: Glucose,Whole Blood 308 mg/dL (70-110)
[2025-03-09] MEDS: METOCLOPRAMIDE 5 MG TAB PO PRN (12:54)
[2025-03-09] MEDS: LIDOCAINE-PRILOCAINE 2.5-2.5% CREAM 5 GM TUBE TOPICAL STA (12:55)
--- NOTE | 2025-03-09 15:38 | P.PN ---
Subjective Progress Note Date: 03/09/25 SURGICAL PROGRESS NOTE CHIEF COMPLAINT: Fluid overload HISTORY OF PRESENT ILLNESS: Patient continues to complain of left breast pain and swelling. She feels the pain and swelling are worse today. She reports intermittent drainage from the nipple. Afebrile. PHYSICAL EXAM: VITAL SIGNS: Reviewed. GENERAL: Well-developed in no acute distress. BREAST: Breasts are symmetrical. Left breast no erythema. Mild swelling noted to left breast with a little more swelling noted. No drainage from the nipple. Nipple has a small scab and is less inverted. No erythema. Breast is tender with palpation. NEUROLOGIC: Alert and oriented. Cranial nerves II through XII grossly intact. ASSESSMENT: 1. Left breast mastitis 2. Diabetes PLAN: - Repeat left breast ultrasound due to patient having increased pain - Continue antibiotics - Apply warm compresses - Shower daily. Keep area clean and dry - No surgical invention planned at this time - Once patient is treated for her current complaints, she can follow-up as an outpatient for any further surgical care. - Check CBC in a.m. Physician Neck Cutter note has been reviewed by physician. Signing provider agrees with the documented findings, assessment, and plan of care. Attestation Patient complaining of of left breast pain and swelling and believes that the pain is worse today. Possibility of slightly more swelling noted on the left breast. Will repeat ultrasound of left breast for further evaluation. Continue antibiotics. Mika Genao, Objective - Vital Signs Vital signs: Vital Signs Temp 97.8 F 03/09/25 11:15 Pulse 76 03/09/25 12:00 Resp 16 03/09/25 12:00 BP 153/77 03/09/25 12:00 Pulse Ox 100 03/09/25 12:00 FiO2 Intake & Output 03/08/25 03/09/25 03/09/25 18:59 06:59 18:59 Intake Total 872 360 Output Total 8400 0 Balance -7528 360 Weight 78.1 kg Intake: Oral 472 360 Hemodialysis 400 Output: Gastric Drainage 0 Urine 0 Stool 0 Urine/Stool Mix 0 Emesis 0 Oral Regurgitation 0 Hemodialysis 4400 Hemodialysis Net Amount 4000 Other 0 Other: Voiding Method Toilet Toilet Toilet # Voids 0 0 # Bowel Movements 0 - Labs CBC & Chem 7: 03/05/25 06:13 04/23/25 06:49 Labs: Abnormal Lab Results - Last 24 Hours (Table) 03/08/25 03/09/25 03/09/25 Range/Units 16:17 06:00 11:24 POC Glucose (mg/dL) 142 H 118 H 308 H (70-110) mg/dL
[2025-03-09 16:18] LABS: Glucose,Whole Blood 244 mg/dL (70-110)
--- NOTE | 2025-03-09 19:20 | P.PN ---
Subjective Patient is a 35-year-old female with a past medical history of ESRD on hemodialysis 4 times a week, M TTS with right subclavian permacath awaiting p marcela and liver transplant , hypertension, diabetes type 2 insulin-dependent, hypothyroidism, diabetic neuropathy, gastroparesis,, anxiety/depression, currently everyday smoker and history of marijuana and methamphetamine use. Patient was recently discharged from the hospital was admitted due to hype rtensive emergency and pulmonary edema and fluid overload. Patient presents to ER with complaints of worsening shortness of breath since yesterday. Last hemodialysis was on Wednesday. Also complains of cough and leg swelling. Complains of nausea. No episodes of vomiting. Denies any chest pain or palpitations. No fever no chills. Patient states that she has been taking her insulin regimen as recommended. Chest x-ray showed cardiomegaly with patchy interstitial prominence suggesting CHF exacerbation. Correlate clinically. EKG showed sinus rhythm Laboratory data showed WBC 11.2 hemoglobin 10.0 and platelets 259 sodium 125 potassium 5.2 with slight hemolysis, chloride 82 BUN 74 creatinine 4.96 and blood sugar 612 anion gap 18 and bicarb is 25 lactic acid 2.1 AST 50 ALT 112 alk phos 211 and proBNP 81,109, acetone negative 02/27/2025 Patient is lying in the bed. Awake alert and oriented x 3. No complaints of chest pain. Shortness of breath is improving. Complains of nausea. No cough or sputum production. Patient underwent hemodialysis yesterday and is also scheduled today. No fever no chills. Blood sugar is controlled. Laboratory data showed WBC 9.6 hemoglobin 9.6 and platelets 228 sodium 129 potassium 4.7 chloride 90 bicarb is 26 BUN 55 and creatinine 4.13 and blood s ugar 189 and calcium 9.1. Nephrology is on board. 02/28/2025 Patient is resting in the bed. Awake alert and oriented x 3. No complaints of chest pain. Shortness of breath is much improved. Able to tolerate oral diet. No cough or sputum production. Blood pressure is also improved. Patient is requiring 2 L oxygen via nasal cannula. CBG went down to 49 around 1130 which is improved now. Hemodialysis tomorrow. 03/01/2025 Patient is lying in the bed. Awake alert and oriented x 3. Complains of significant cough and whitish to brownish sputum production. Also complains of nausea. Patient did have hemodialysis yesterday with 2.5 L of ultrafiltration. Again scheduled today. No complaints of chest pain. Shortness of breath is better. Patient has been afebrile. Laboratory data reviewed. 03/02/2025 Patient is lying in the bed awake alert and oriented x 3. She complains of cough and shortness of breath. Patient underwent hemodialysis yesterday and next hemodialysis session tomorrow. No complaints of chest pain. Patient has been afebrile. Repeat chest x-ray showed improvement in pulmonary vascular congestion. Patient is tolerating oral diet. Lab data reviewed. 03/03/2025 Patient is lying in the bed. Awake alert and oriented. Patient states that she was nauseous this morning. Also complains of shortness of breath still. No episodes of vomiting. No fever no chills. Patient is undergoing hemodialysis today. Lab data showed WBC 12.5 hemoglobin 8.5 and platelets 239 sodium 131 potassium 5.7 chloride 93 bicarb is 25 BUN 57 and creatinine 5.45 and blood sugar 207. Phosphorus 5.4. Nephrology is on board. 03/04/2025 Patient is lying in the bed but awake alert and oriented. Complains of left upper extremity swelling. Rates patient is still having bilateral swelling. Scheduled for hemodialysis. Nephrology on board. Patient is also on fluid restriction. Laboratory data showed WBC 8.2 hemoglobin 8.9 and platelets 240 sodium 133 potassium 4.9 chloride 86 bicarbonate 26 BUN 37 creatinine 4.1 and blood sugar 130. Nephrology is on board. 03/05/2025. Patient is resting in the bed. Awake alert and oriented. Still complains of shortness of breath and worsening left upper extremity swelling. Duplex scan is negative for DVT. Patient was seen by vascular surgery recommends compression stockings and Jv wrap to the left upper extremity. Patient is also complaining of left breast swelling and tender. The patient has been afebrile. Laboratory data showed WBC 8.1 hemoglobin 8.6 and platelets 213 sodium 132 potassium 5.9 chloride 97 bicarb is 24 BUN 55 creatinine 4.98 and blood sugar 67. Calcium 9.3 03/06/2025 Patient is lying in the bed. Awake alert and oriented. Still complains of left arm pain and also left breast discomfort with swelling. No fever no chills. No cough or sputum production. Complains of nausea. No gross vomiting. Patient is getting hemodialysis. Laboratory data showed sodium 136 potassium 4.9 chloride 95 bicarb is 28 BUN 39 and creatinine 4.08 and blood sugar 133. Calcium 9.0. 03/07 Patient still complains from some shortness of breath, she still has leg edema She is able to walk. She has good appetite but she is constipated despite being on Colace and MiraLAX No abdominal pain or tenderness She is complaining from left breast pain and tenderness x 1 week. No open wound or abnormal discharge. Ultrasound today showing possible mastoiditis per report. I reviewed the ultrasound by myself We will discharge patient on Augmentin and consult gynecology service Patient still getting hemodialysis for her end-stage renal disease and diastolic CHF with nephrology following closely Left upper extremity and graft is in Arch compression stocking Vascular surgery team evaluated the patient and signed off the case from their perspective 03/08 Patient sugars better controlled after increasing her Lantus and Humalog doses She is still complaining from cough and some chest pain with cough, exertional dyspnea related to her diastolic CHF although it is improving. She is getting hemodialysis today. No significant leg edema She still has left upper extremity pain, she was already evaluated by vascular surgery team and she is getting hemodialysis currently through her graft in the left upper extremity. Patient will require follow-up as an outpatient vascular surgery team She is placed on Augmentin for possible left mastitis. Yesterday her detector car operator Dr. Lebron does not think they need to see the patient as she was not taking control pills. He recommended surgical team consult which was placed for further evaluation and recommendation. 03/09 Patient breathing and chest congestion and exertional dyspnea improved with hemodialysis. She still have coughing on Robitussin added today She is still complaining from nausea and pain in her left breast. She is on Augmentin. Surgery team following closely. The recommend to repeat breast ultrasound for further evaluation to see the progress or regress in the treatment She is continued on hemodialysis Patient was asking to be discharged home today. She says she will follow-up with her detector car operator Dr. Galarza from [facility] Vascular surgery evaluated the patient for left upper extremities pain and cleared for discharge. Patient needs to follow-up with vascular surgery as an outpatient, she was informed and she agrees Objective - Vital Signs Vital signs: Vital Signs Temp 97.8 F 03/09/25 11:15 Pulse 68 03/09/25 11:15 Resp 18 03/09/25 11:15 BP 158/83 03/09/25 11:15 Pulse Ox 100 03/09/25 11:15 FiO2 Intake & Output 03/08/25 03/09/25 03/09/25 18:59 06:59 18:59 Intake Total 872 120 Output Total 8400 0 Balance -7528 120 Weight 78.1 kg Intake: Oral 472 120 Hemodialysis 400 Output: Gastric Drainage 0 Urine 0 Stool 0 Urine/Stool Mix 0 Emesis 0 Oral Regurgitation 0 Hemodialysis 4400 Hemodialysis Net Amount 4000 Other 0 Other: Voiding Method Toilet Toilet Toilet # Voids 0 0 # Bowel Movements 0 - Exam GENERAL: The patient is alert and oriented x3, not in any acute distress. Well developed, well nourished. HEENT: Pupils are round and equally reacting to light. EOMI. No scleral icterus. No conjunctival pallor. Normocephalic, atraumatic. No pharyngeal erythema. No thyromegaly. CARDIOVASCULAR: S1 and S2 present. No murmurs, rubs, or gallops. -PULMONARY: Chest is clear to auscultation, no wheezing , bilateral basal crackles. -lwft Breast exam(after patient gave verbal consent and in the presence of bedside nurse Maryan) no erythema or swelling no nipple abnormality. Tender nodule behind the left nipple ABDOMEN: Soft, nontender, nondistended, normoactive bowel sounds. No palpable organomegaly. MUSCULOSKELETAL: No joint swelling or deformity. -EXTREMITIES: No cyanosis, clubbing,. 2+ bilateral pitting leg edema. NEUROLOGICAL: Gross neurological examination did not reveal any focal deficits. SKIN: No rashes. no petechiae. - Labs CBC & Chem 7: 03/05/25 06:13 03/07/25 06:49 Labs: Abnormal Lab Results - Last 24 Hours (Table) 03/08/25 03/09/25 03/09/25 Range/Units 16:17 06:00 11:24 POC Glucose (mg/dL) 142 H 118 H 308 H (70-110) mg/dL Assessment and Plan Assessment: acute left mastitis Worsening shortness of breath due to acute diastolic CHF and fluid overload ESRD on hemodialysis 4 times per week M TTS Left upper extremity worsening swelling. Rule out DVT. Venous Doppler was negative for DVT And dialysis graft appears patent, transfer text. Patient cleared by vascular surgery team Hypertension Acute acute on chronic CHF with preserved EF Hyperglycemia with uncontrolled diabetes type 1 Hyperkalemia secondary to CKD History of CVA/TIA with no residual weakness Diabetic gastroparesis and diabetic peripheral neuropathy History of optic neuritis Hypothyroidism Plan: Continue with hemodialysis per nephrology team Vascular surgery team signed off the case Continue with insulin Start Augmentin and consult general surgery team for left mastoiditis suspected Continue with insulin we will decrease her Lantus 14 units up to 15 units twice daily. Also increase her Humalog 8 units up to 12 units with meals Labs and medication were reviewed.. Continue same treatment. Continue with symptomatic treatment. Resume home medication. Monitor labs and vitals. DVT and GI prophylaxis. Further recommendations as per clinical course of the patient DVT prophylaxis: Subcutaneous heparin GI Prophylaxis: Pepcid Prognosis is guarded
[2025-03-09 19:57] LABS: Glucose,Whole Blood 186 mg/dL (70-110)
[2025-03-09] MEDS: guaiFENesin-DM 100-10MG/5ML 10 ML CUP PO SCH (21:40)
[2025-03-10 06:23] LABS: Glucose,Whole Blood 234 mg/dL (70-110)
[2025-03-10 07:23] LABS: Basophils # (A) 0.09 10*3/uL (0.00-0.10); Basophils % (A) 1.2 %; Eosinophils # (A) 0.71 10*3/uL (0.04-0.35); Eosinophils % (A) 9.3 %; HCT 27.4 % (37.2-46.3); HGB 8.7 g/dL (12.0-15.0); Lymphocytes # (A) 0.94 10*3/uL (0.90-5.00); Lymphocytes % (A) 12.3 %; MCH 32.3 pg (27.0-32.0); MCHC 31.8 g/dL (32.0-37.0); MCV 101.9 fL (80.0-97.0); Mean Platelet Volume 10.5 fL (9.5-12.2); Monocytes # (A) 0.68 10*3/uL (0.20-1.00); Monocytes % (A) 8.9 %; Neutrophils # (A) 5.17 10*3/uL (1.80-7.70); Neutrophils % (A) 67.4 %; Platelet Count 225 10*3/uL (140-440); RBC 2.69 10*6/uL (4.10-5.20); RDW 16.3 % (11.5-14.5); WBC 7.66 10*3/uL (4.50-10.00)
--- NOTE | 2025-03-10 09:11 | P.PN ---
Subjective Pt seen and evaluated at bedside. Patient complaining of left breast pain that is the same compared to yesterday. Objective - Vital Signs Vital signs: Vital Signs Temp 98.2 F 03/09/25 20:00 Pulse 71 03/10/25 04:47 Resp 18 03/09/25 20:00 BP 142/85 03/10/25 04:47 Pulse Ox 94 L 03/10/25 04:47 FiO2 Intake & Output 03/09/25 03/10/25 03/10/25 18:59 06:59 18:59 Intake Total 1900 240 Output Total 8500 Balance -6600 240 Weight 77.7 kg Intake: Oral 1400 240 Hemodialysis 500 Output: Gastric Drainage 0 Urine 0 Stool 0 Urine/Stool Mix 0 Emesis 0 Oral Regurgitation 0 Hemodialysis 4500 Hemodialysis Net Amount 4000 Other 0 Other: Voiding Method Toilet Toilet # Voids 0 # Bowel Movements 0 - Exam gen: nad cv: rrr pul: non labored breathing chest: left breast feels firm with no drainable abscess, left nipple tenderness w/ scab and recent bleeding - Labs CBC & Chem 7: 03/10/25 06:41 03/07/25 06:49 Labs: Abnormal Lab Results - Last 24 Hours (Table) 03/09/25 03/09/25 03/09/25 Range/Units 11:24 16:16 19:56 RBC (4.10-5.20) 10*6/uL Hgb (12.0-15.0) g/dL Hct (37.2-46.3) % MCV (80.0-97.0) fL MCH (27.0-32.0) pg MCHC (32.0-37.0) g/dL Immature Gran # (0.00-0.04) 10*3/uL Eosinophils # (0.04-0.35) 10*3/uL POC Glucose (mg/dL) 308 H 244 H 186 H (70-110) mg/dL 03/10/25 03/10/25 Range/Units 06:22 06:41 RBC 2.69 L (4.10-5.20) 10*6/uL Hgb 8.7 L (12.0-15.0) g/dL Hct 27.4 L (37.2-46.3) % MCV 101.9 H (80.0-97.0) fL MCH 32.3 H (27.0-32.0) pg MCHC 31.8 L (32.0-37.0) g/dL Immature Gran # 0.07 H (0.00-0.04) 10*3/uL Eosinophils # 0.71 H (0.04-0.35) 10*3/uL POC Glucose (mg/dL) 234 H (70-110) mg/dL Assessment and Plan Assessment: Left breast mastitis Diabetes PLAN: - left breast ultrasound read pending - Pt complaining of bloody nipple discharge - Continue antibiotics - Apply warm compresses - Shower daily. Keep area clean and dry - No surgical invention planned at this time - She can follow-up as an outpatient for any further surgical care. Time with Patient: Greater than 30
[2025-03-10 11:19] LABS: Glucose,Whole Blood 123 mg/dL (70-110)
--- NOTE | 2025-03-10 11:57 | P.PN ---
Subjective Patient is seen for follow-up for end-stage renal disease. Seen on hemodialysis today. UF about 4.5 L Significant edema persists in the lower extremities. Objective - Vital Signs Vital signs: Vital Signs Temp 97.9 F 03/10/25 11:44 Pulse 70 03/10/25 11:44 Resp 17 03/10/25 11:44 BP 174/93 03/10/25 11:44 Pulse Ox 98 03/10/25 11:44 FiO2 Intake & Output 03/09/25 03/10/25 03/10/25 18:59 06:59 18:59 Intake Total 1900 240 120 Output Total 8500 0 Balance -6600 240 120 Weight 77.7 kg Intake: Oral 1400 240 120 Hemodialysis 500 Output: Gastric Drainage 0 0 Urine 0 0 Stool 0 0 Urine/Stool Mix 0 0 Emesis 0 0 Oral Regurgitation 0 Hemodialysis 4500 Hemodialysis Net Amount 4000 Other 0 0 Other: Voiding Method Toilet Toilet Toilet # Voids 0 0 # Bowel Movements 0 0 - Exam Patient is awake, comfortable, no acute distress Examination of the heart S1 and S2 Left breast area is covered Examination of the lungs bilateral breath sounds are heard, basal crackles Abdomen is soft nontender Examination of lower extremities shows edema 1+ bilaterally - Labs CBC & Chem 7: 03/10/25 06:41 03/07/25 06:49 Labs: Abnormal Lab Results - Last 24 Hours (Table) 03/09/25 03/09/25 03/10/25 Range/Units 16:16 19:56 06:22 RBC (4.10-5.20) 10*6/uL Hgb (12.0-15.0) g/dL Hct (37.2-46.3) % MCV (80.0-97.0) fL MCH (27.0-32.0) pg MCHC (32.0-37.0) g/dL Immature Gran # (0.00-0.04) 10*3/uL Eosinophils # (0.04-0.35) 10*3/uL POC Glucose (mg/dL) 244 H 186 H 234 H (70-110) mg/dL 03/10/25 03/10/25 Range/Units 06:41 11:18 RBC 2.69 L (4.10-5.20) 10*6/uL Hgb 8.7 L (12.0-15.0) g/dL Hct 27.4 L (37.2-46.3) % MCV 101.9 H (80.0-97.0) fL MCH 32.3 H (27.0-32.0) pg MCHC 31.8 L (32.0-37.0) g/dL Immature Gran # 0.07 H (0.00-0.04) 10*3/uL Eosinophils # 0.71 H (0.04-0.35) 10*3/uL POC Glucose (mg/dL) 123 H (70-110) mg/dL Assessment and Plan Assessment: 1. End-stage renal disease on hemodialysis on Wednesday and Wednesday for volume overload. History of noncompliance with salt and fluid restriction. 2. Volume overload 3. Dyspnea associated with volume overload 4. 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 CKD mineral bone disorder 6. Pericardial effusion during last admission with positive antihistone antibodies, currently off of hydralazine 7. Hypertension with CKD stage V, mostly volume sensitive. 8. Left breast mastitis maintained on warm compresses Plan: Repeat hemodialysis on 03/12/2025 Discussed salt and fluid restriction Continue current antihypertensive regimen
--- NOTE | 2025-03-10 12:09 | P.PN ---
Subjective Patient is a 35-year-old female with a past medical history of ESRD on hemodialysis 4 times a week, M TTS with right subclavian permacath awaiting p marcela and liver transplant , hypertension, diabetes type 2 insulin-dependent, hypothyroidism, diabetic neuropathy, gastroparesis,, anxiety/depression, currently everyday smoker and history of marijuana and methamphetamine use. Patient was recently discharged from the hospital was admitted due to hype rtensive emergency and pulmonary edema and fluid overload. Patient presents to ER with complaints of worsening shortness of breath since yesterday. Last hemodialysis was on Wednesday. Also complains of cough and leg swelling. Complains of nausea. No episodes of vomiting. Denies any chest pain or palpitations. No fever no chills. Patient states that she has been taking her insulin regimen as recommended. Chest x-ray showed cardiomegaly with patchy interstitial prominence suggesting CHF exacerbation. Correlate clinically. EKG showed sinus rhythm Laboratory data showed WBC 11.2 hemoglobin 10.0 and platelets 259 sodium 125 potassium 5.2 with slight hemolysis, chloride 82 BUN 74 creatinine 4.96 and blood sugar 612 anion gap 18 and bicarb is 25 lactic acid 2.1 AST 50 ALT 112 alk phos 211 and proBNP 81,109, acetone negative 02/27/2025 Patient is lying in the bed. Awake alert and oriented x 3. No complaints of chest pain. Shortness of breath is improving. Complains of nausea. No cough or sputum production. Patient underwent hemodialysis yesterday and is also scheduled today. No fever no chills. Blood sugar is controlled. Laboratory data showed WBC 9.6 hemoglobin 9.6 and platelets 228 sodium 129 potassium 4.7 chloride 90 bicarb is 26 BUN 55 and creatinine 4.13 and blood s ugar 189 and calcium 9.1. Nephrology is on board. 02/28/2025 Patient is resting in the bed. Awake alert and oriented x 3. No complaints of chest pain. Shortness of breath is much improved. Able to tolerate oral diet. No cough or sputum production. Blood pressure is also improved. Patient is requiring 2 L oxygen via nasal cannula. CBG went down to 49 around 1130 which is improved now. Hemodialysis tomorrow. 03/01/2025 Patient is lying in the bed. Awake alert and oriented x 3. Complains of significant cough and whitish to brownish sputum production. Also complains of nausea. Patient did have hemodialysis yesterday with 2.5 L of ultrafiltration. Again scheduled today. No complaints of chest pain. Shortness of breath is better. Patient has been afebrile. Laboratory data reviewed. 03/02/2025 Patient is lying in the bed awake alert and oriented x 3. She complains of cough and shortness of breath. Patient underwent hemodialysis yesterday and next hemodialysis session tomorrow. No complaints of chest pain. Patient has been afebrile. Repeat chest x-ray showed improvement in pulmonary vascular congestion. Patient is tolerating oral diet. Lab data reviewed. 03/03/2025 Patient is lying in the bed. Awake alert and oriented. Patient states that she was nauseous this morning. Also complains of shortness of breath still. No episodes of vomiting. No fever no chills. Patient is undergoing hemodialysis today. Lab data showed WBC 12.5 hemoglobin 8.5 and platelets 239 sodium 131 potassium 5.7 chloride 93 bicarb is 25 BUN 57 and creatinine 5.45 and blood sugar 207. Phosphorus 5.4. Nephrology is on board. 03/04/2025 Patient is lying in the bed but awake alert and oriented. Complains of left upper extremity swelling. Rates patient is still having bilateral swelling. Scheduled for hemodialysis. Nephrology on board. Patient is also on fluid restriction. Laboratory data showed WBC 8.2 hemoglobin 8.9 and platelets 240 sodium 133 potassium 4.9 chloride 86 bicarbonate 26 BUN 37 creatinine 4.1 and blood sugar 130. Nephrology is on board. 03/05/2025. Patient is resting in the bed. Awake alert and oriented. Still complains of shortness of breath and worsening left upper extremity swelling. Duplex scan is negative for DVT. Patient was seen by vascular surgery recommends compression stockings and Jv wrap to the left upper extremity. Patient is also complaining of left breast swelling and tender. The patient has been afebrile. Laboratory data showed WBC 8.1 hemoglobin 8.6 and platelets 213 sodium 132 potassium 5.9 chloride 97 bicarb is 24 BUN 55 creatinine 4.98 and blood sugar 67. Calcium 9.3 03/06/2025 Patient is lying in the bed. Awake alert and oriented. Still complains of left arm pain and also left breast discomfort with swelling. No fever no chills. No cough or sputum production. Complains of nausea. No gross vomiting. Patient is getting hemodialysis. Laboratory data showed sodium 136 potassium 4.9 chloride 95 bicarb is 28 BUN 39 and creatinine 4.08 and blood sugar 133. Calcium 9.0. 03/07 Patient still complains from some shortness of breath, she still has leg edema She is able to walk. She has good appetite but she is constipated despite being on Colace and MiraLAX No abdominal pain or tenderness She is complaining from left breast pain and tenderness x 1 week. No open wound or abnormal discharge. Ultrasound today showing possible mastoiditis per report. I reviewed the ultrasound by myself We will discharge patient on Augmentin and consult gynecology service Patient still getting hemodialysis for her end-stage renal disease and diastolic CHF with nephrology following closely Left upper extremity and graft is in Arch compression stocking Vascular surgery team evaluated the patient and signed off the case from their perspective 03/08 Patient sugars better controlled after increasing her Lantus and Humalog doses She is still complaining from cough and some chest pain with cough, exertional dyspnea related to her diastolic CHF although it is improving. She is getting hemodialysis today. No significant leg edema She still has left upper extremity pain, she was already evaluated by vascular surgery team and she is getting hemodialysis currently through her graft in the left upper extremity. Patient will require follow-up as an outpatient vascular surgery team She is placed on Augmentin for possible left mastitis. Yesterday her administrative court justice Dr. Lebron does not think they need to see the patient as she was not taking control pills. He recommended surgical team consult which was placed for further evaluation and recommendation. 03/09 Patient breathing and chest congestion and exertional dyspnea improved with hemodialysis. She still have coughing on Robitussin added today She is still complaining from nausea and pain in her left breast. She is on Augmentin. Surgery team following closely. The recommend to repeat breast ultrasound for further evaluation to see the progress or regress in the treatment She is continued on hemodialysis Patient was asking to be discharged home today. She says she will follow-up with her administrative court justice Dr. Galarza [facility] Vascular surgery evaluated the patient for left upper extremities pain and cleared for discharge. Patient needs to follow-up with vascular surgery as an outpatient, she was informed and she agrees 03/10 Patient still complaining from pain in her left breast. Her left breast fullness behind the nipple looks larger and tender. As per report there is also some bloody discharge occasionally from the left nipple. Repeat ultrasound requested yesterday and pending results. We called for the lab to obtain the result She is currently on Augmentin. But because of continued symptoms and on examination the fullness looks larger we are going to consult infectious team. Surgery team also following closely She is complaining from coughing persistently despite giving her cough medicine. She is getting hemodialysis today Her left upper pain controlled No other new complaints will continue close monitoring (All encounter and exam done in the presence of the bedside nurse Becki and after patient gave verbal consent) Objective - Vital Signs Vital signs: Vital Signs Temp 97.9 F 03/10/25 11:44 Pulse 70 03/10/25 11:44 Resp 17 03/10/25 11:44 BP 174/93 03/10/25 11:44 Pulse Ox 98 03/10/25 11:44 FiO2 Intake & Output 03/09/25 03/10/25 03/10/25 18:59 06:59 18:59 Intake Total 1900 240 120 Output Total 8500 0 Balance -6600 240 120 Weight 77.7 kg Intake: Oral 1400 240 120 Hemodialysis 500 Output: Gastric Drainage 0 0 Urine 0 0 Stool 0 0 Urine/Stool Mix 0 0 Emesis 0 0 Oral Regurgitation 0 Hemodialysis 4500 Hemodialysis Net Amount 4000 Other 0 0 Other: Voiding Method Toilet Toilet Toilet # Voids 0 0 # Bowel Movements 0 0 - Exam GENERAL: The patient is alert and oriented x3, not in any acute distress. Well developed, well nourished. HEENT: Pupils are round and equally reacting to light. EOMI. No scleral icterus. No conjunctival pallor. Normocephalic, atraumatic. No pharyngeal erythema. No thyromegaly. CARDIOVASCULAR: S1 and S2 present. No murmurs, rubs, or gallops. -PULMONARY: Chest is clear to auscultation, no wheezing , bilateral basal crackles. -lwft Breast exam(after patient gave verbal consent and in the presence of bedside nurse Maryan) no erythema or swelling no nipple abnormality. Tender nodule behind the left nipple ABDOMEN: Soft, nontender, nondistended, normoactive bowel sounds. No palpable organomegaly. MUSCULOSKELETAL: No joint swelling or deformity. -EXTREMITIES: No cyanosis, clubbing,. 2+ bilateral pitting leg edema. NEUROLOGICAL: Gross neurological examination did not reveal any focal deficits. SKIN: No rashes. no petechiae. - Labs CBC & Chem 7: 03/10/25 06:41 03/07/25 06:49 Labs: Abnormal Lab Results - Last 24 Hours (Table) 03/09/25 03/09/25 03/10/25 Range/Units 16:16 19:56 06:22 RBC (4.10-5.20) 10*6/uL Hgb (12.0-15.0) g/dL Hct (37.2-46.3) % MCV (80.0-97.0) fL MCH (27.0-32.0) pg MCHC (32.0-37.0) g/dL Immature Gran # (0.00-0.04) 10*3/uL Eosinophils # (0.04-0.35) 10*3/uL POC Glucose (mg/dL) 244 H 186 H 234 H (70-110) mg/dL 03/10/25 03/10/25 Range/Units 06:41 11:18 RBC 2.69 L (4.10-5.20) 10*6/uL Hgb 8.7 L (12.0-15.0) g/dL Hct 27.4 L (37.2-46.3) % MCV 101.9 H (80.0-97.0) fL MCH 32.3 H (27.0-32.0) pg MCHC 31.8 L (32.0-37.0) g/dL Immature Gran # 0.07 H (0.00-0.04) 10*3/uL Eosinophils # 0.71 H (0.04-0.35) 10*3/uL POC Glucose (mg/dL) 123 H (70-110) mg/dL Assessment and Plan Assessment: acute left mastitis Worsening shortness of breath due to acute diastolic CHF and fluid overload ESRD on hemodialysis 4 times per week M TTS Left upper extremity worsening swelling. Rule out DVT. Venous Doppler was negative for DVT And dialysis graft appears patent, transfer text. Patient cleared by vascular surgery team Hypertension Acute acute on chronic CHF with preserved EF Hyperglycemia with uncontrolled diabetes type 1 Hyperkalemia secondary to CKD History of CVA/TIA with no residual weakness Diabetic gastroparesis and diabetic peripheral neuropathy History of optic neuritis Hypothyroidism Plan: Continue with hemodialysis per nephrology team Vascular surgery team signed off the case Continue with insulin. consult ID team Start Augmentin and consult general surgery team for left mastoiditis suspected Continue with insulin we will decrease her Lantus 14 units up to 15 units twice daily. Also increase her Humalog 8 units up to 12 units with meals Labs and medication were reviewed.. Continue same treatment. Continue with symptomatic treatment. Resume home medication. Monitor labs and vitals. DVT and GI prophylaxis. Further recommendations as per clinical course of the patient DVT prophylaxis: Subcutaneous heparin GI Prophylaxis: Pepcid Prognosis is guarded
[2025-03-10 13:25] LABS: Glucose,Whole Blood 168 mg/dL (70-110)
[2025-03-10 15:23] LABS: African American GFR (CKD) 36 (>60 ml/min/1.73 sqM); Anion Gap 13 mmol/L; Blood Urea Nitrogen 14 mg/dL (7-17); Calcium 9.6 mg/dL (8.4-10.2); Carbon Dioxide 29 mmol/L (22-30); Chloride 94 mmol/L (98-107); Glucose 151 mg/dL (74-99); Non-African American GFR(CKD) 31 (>60 ml/min/1.73 sqM); Potassium 3.7 mmol/L (3.5-5.1); Sodium 136 mmol/L (137-145)
[2025-03-10 16:14] LABS: Glucose,Whole Blood 153 mg/dL (70-110)
[2025-03-10] MEDS ORDERED: VANCOMYCIN IV PER PHARMACY 1 EACH MISC MISCELLANE PRN (19:00)
[2025-03-10 20:05] LABS: Glucose,Whole Blood 147 mg/dL (70-110)
[2025-03-10] MEDS: VANCOMYCIN 1,500 MG in SODIUM CHLORIDE 0.9% 500 ML 500 ML IVPB ONE (22:06)
--- NOTE | 2025-03-10 23:09 | P.CONS ---
History of Present Illness - Reason for Consult Consult date: 03/10/25 Left mastitis Requesting physician: Jamal E Myah - Chief Complaint Left breast pain x 3 days - History of Present Illness Patient is a 35-year-old female with multiple comorbidities including diabetes mellitus hypertension seizure disorder end-stage renal disease on dialysis presenting to the hospital 2 weeks ago for evaluation of increasing shortness of breath and the patient has been under care of admitting and nephrology team patient apparently started having pain to the left breast area that apparently started 3 days ago and has been evaluated by general surgery with persistence of the pain for the slight worsening infectious disease was consulted today for further management and need for antibiotic therapy patient has been afebrile during his hospital stay she has been complaining of pain to the left breast area to be sharp moderate intensity without any radiation apparently she did have a some bloodstained drainage after the scab fell off cl ose to the nipple area as reported by the nursing staff patient did have a white count of 7.6 his creatinine is 2.03 pressor ultrasound has been completed with results currently pending Review of Systems Positive point and negatives has been mentioned in the HPI, complete review of systems was performed and all other systems are negative Past Medical History Past Medical History: Diabetes Mellitus, GERD/Reflux, Hypertension, Renal Disease, Seizure Disorder, Thyroid Disorder Additional Past Medical History / Comment(s): Neuropathy, last seizure 2020, gastroparesis, headaches with dialysis, states "fast heart rate" since giving ., receives Hemodialysis Wednesday- and Saturdays at [facility] right chest hemodialysis catheter., severe HTN, hx of c-diff 2013., 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 Past Anesthesia/Blood Transfusion Reactions: Previous Problems w/ Anesthesia Additional Past Anesthesia/Blood Transfusion Reaction / Comm: confusion Past Psychological History: Anxiety, Depression Smoking Status: Current every day smoker Past Alcohol Use History: None Reported Past Drug Use History: Marijuana - Past Family History Father History Unknown: Yes Family Medical History: Unable to Obtain Mother History Unknown: Yes Family Medical History: No Reported History Grandfather History Unknown: Yes Family Medical History: Coronary Artery Disease (CAD) Additional Family Medical History / Comment(s): Diabetes mellitus type 2 Medications and Allergies Home Medications Medication Instructions Recorded Confirmed Type Docusate [Colace] 100 mg PO DAILY@0800 02/05/24 02/26/25 History Lidocaine 4% Patch 1 patch TOPICAL DAILY@0800 02/05/24 02/26/25 History Magnesium Hydroxide [Milk of 7,200 mg PO DAILY PRN 02/05/24 02/26/25 History Magnesia Concentrate] Ipratropium-Albuterol Nebulize 3 ml INHALATION RT-TID PRN each 02/14/24 02/26/25 Rx [Duoneb 0.5 mg-3 mg/3 ml Soln] polyethylene glycoL 3350 [Miralax] 17 gm PO AC-LUNCH #527 gm 02/14/24 02/26/25 Rx Acetaminophen [Tylenol] 650 mg PO Q4H PRN 02/18/24 02/26/25 History Biotene Dry Mouth/Throat 10 ml PO BID PRN 02/18/24 02/26/25 History Melatonin 1 mg PO HS tab 02/25/24 02/26/25 Rx Loratadine [Claritin] 5 mg PO DAILY tab 03/30/24 02/26/25 Rx Aspirin 81 mg PO DAILY@0800 #30 tab 05/18/24 02/26/25 Rx Famotidine [Pepcid] 20 mg PO BID #60 tab 07/11/24 02/26/25 Rx Levothyroxine Sodium [Synthroid] 175 mcg PO DAILY@0600 08/14/24 02/26/25 History Metoclopramide [Reglan] 5 mg PO AC-TID PRN 08/14/24 02/26/25 History Pantoprazole [Protonix] 40 mg PO DAILY@59908/14/24 02/26/25 History Sertraline [Zoloft] 200 mg PO DAILY@0800 08/14/24 02/26/25 History Colchicine [Colcrys] 0.3 mg PO DAILY #15 each 09/23/24 02/26/25 Rx Ondansetron Odt [Zofran ODT] 4 mg PO Q8HR PRN 11/02/24 02/26/25 History Atorvastatin [Lipitor] 40 mg PO HS #0 11/23/24 02/26/25 Rx oxyCODONE-APAP 10-325MG [Percocet 1 tab PO Q4HR PRN #18 tab 11/23/24 02/26/25 Rx 10-325 mg] Folic Acid/Vit B Complex and C 0.8 mg PO DAILY 12/20/24 02/26/25 History [Davina-Mayte Tablet] traZODone HCL [Desyrel] 50 mg PO HS #20 tab 01/01/25 02/26/25 Rx Isosorbide Mononitrate ER [Imdur] 120 mg PO DAILY #60 tab 01/02/25 02/26/25 Rx NIFEdipine XL [Procardia XL] 60 mg PO BID 30 Days #60 tab 01/02/25 02/26/25 Rx Gabapentin [Neurontin] 100 mg PO BID 30 Days #60 cap 01/03/25 02/26/25 Rx Linagliptin [Tradjenta] 5 mg PO DAILY #30 tab 01/03/25 02/26/25 Rx Insulin Lispro [humaLOG Kwikpen] 8 unit SQ AC-TID 01/22/25 02/26/25 History Insulin Lispro [humaLOG Kwikpen] See Protocol SQ AC-TID 01/22/25 02/26/25 History cloNIDine HCL [Catapres] 0.3 mg PO TID 01/22/25 02/26/25 History Butalb/APAP/Caff 50-325-40Mg 1 tab PO Q4HR PRN #12 tab 01/26/25 02/26/25 Rx [Fioricet 50-325-40] carvediloL [Coreg] 50 mg PO BID #120 tablet 02/15/25 02/26/25 Rx Calcium Acetate [PhosLo] 1,334 mg PO TID-W/MEALS 30 Days 02/19/25 02/26/25 Rx #360 tab Ipratropium-Albuterol Nebulize 3 ml INHALATION RT-TID #100 each 02/19/2502/13 Rx [Duoneb 0.5 mg-3 mg/3 ml Soln] ALPRAZolam [Xanax] 0.25 mg PO BID PRN 02/26/25 02/26/25 History Divalproex Sodium [Depakote] 500 mg PO BID@0800,1700 02/26/25 02/26/25 History Insulin Glargine (Lantus) [Lantus 14 unit SQ BID 02/26/25 02/26/25 History Vial] Lidocaine 5% Cream 1 applic TOPICAL MOTUWETHSA 02/26/25 02/26/25 History Methoxy Peg-Epoetin Beta [Mircera] 100 mcg SQ Q14D 02/26/25 02/26/25 History Allergies Allergy/AdvReac Type Severity Reaction Status Date / Time hydromorphone HCl Allergy Anaphylaxis Verified 02/26/25 14:57 [From Dilaudid] propoxyphene Allergy Rash/Hives Verified 02/26/25 14:57 [From Darvocet-N] tramadol Allergy Anaphylaxis Verified 02/26/25 14:57 ibuprofen [From Motrin] AdvReac unable to Verified 02/26/25 14:57 take due to kidney disease venom-honey bee AdvReac passes out Verified 02/26/25 14:57 [bee venom (honey bee)] Physical Exam Vitals: Vital Signs Temp Pulse Pulse Resp BP Pulse Ox 03/10/25 11:44 97.9 F 70 17 174/93 98 03/10/25 09:31 98.4 F 69 17 150/88 97 03/10/25 04:47 71 142/85 94 L 03/10/25 00:00 73 154/77 99 03/09/25 20:00 98.2 F 76 18 164/83 100 03/09/25 17:21 68 184/86 03/09/25 15:57 98.0 F 74 18 139/71 Intake and Output 03/09/25 03/10/25 03/10/25 22:59 06:59 14:59 Intake Total 1780 120 Output Total 8500 0 Balance -6720 120 Intake: Oral 1280 120 Hemodialysis 500 Output: Gastric Drainage 0 Urine 0 0 Stool 0 Urine/Stool Mix 0 Emesis 0 Hemodialysis 4500 Hemodialysis Net Amount 4000 Other 0 Other: Voiding Method Toilet Toilet Toilet # Voids 0 # Bowel Movements 0 Weight 77.7 kg GENERAL DESCRIPTION: Middle-age female lying in bed, no distress. No tachypnea or accessory muscle of respiration use. HEENT: Shows Pallor , no scleral icterus. Oral mucous membrane is dry. NECK: Trachea central, no thyromegaly. LUNGS: Unlabored breathing. Clear to auscultation anteriorly. No wheeze or crackle. HEART: S1, S2, regular rate and rhythm. No loud murmur ABDOMEN: Soft, no tenderness , guarding or rigidity, no organomegaly EXTREMITIES: No edema of feet. SKIN: Left breast examined with the nurse did show some swelling and tenderness to touch but no significant redness or drainage NEUROLOGICAL: The patient is awake, alert, oriented x3, mood and affect normal. Results CBC & Chem 7: 03/10/25 06:41 03/10/25 14:47 Labs: Abnormal Lab Results - Last 24 Hours (Table) 03/09/25 03/09/25 03/10/25 Range/Units 16:16 19:56 06:22 RBC (4.10-5.20) 10*6/uL Hgb (12.0-15.0) g/dL Hct (37.2-46.3) % MCV (80.0-97.0) fL MCH (27.0-32.0) pg MCHC (32.0-37.0) g/dL Immature Gran # (0.00-0.04) 10*3/uL Eosinophils # (0.04-0.35) 10*3/uL POC Glucose (mg/dL) 244 H 186 H 234 H (70-110) mg/dL 03/10/25 03/10/25 Range/Units 06:41 11:18 RBC 2.69 L (4.10-5.20) 10*6/uL Hgb 8.7 L (12.0-15.0) g/dL Hct 27.4 L (37.2-46.3) % MCV 101.9 H (80.0-97.0) fL MCH 32.3 H (27.0-32.0) pg MCHC 31.8 L (32.0-37.0) g/dL Immature Gran # 0.07 H (0.00-0.04) 10*3/uL Eosinophils # 0.71 H (0.04-0.35) 10*3/uL POC Glucose (mg/dL) 123 H (70-110) mg/dL Assessment and Plan (1) Mastitis, left, acute Current Visit: Yes Status: Acute Code(s): N61.0 - MASTITIS WITHOUT ABSCESS SNOMED Code(s): 78517635 Plan: 1patient complaining of pain to the left breast area with some tenderness and currently some drainage concerning for mastitis likely from gram-positive's control in this patient with a history of end-stage renal disease will need to cover for more resistant pathogen such as MRSA 2-await report on the breast ultrasound to make sure no evidence of any abscess that may need to be drained 3-will start patient on vancomycin pharmacy to dose while waiting for the workup to be completed We will follow on clinical condition and cultures to further adjust medication if needed Thank you for this consultation we will follow the patient along with you Dictation was produced using [employer] dictation software. please excuse any grammatical, word or spelling errors. Time with Patient: Greater than 30
[2025-03-11 06:06] LABS: Glucose,Whole Blood 99 mg/dL (70-110)
[2025-03-11 09:34] LABS: Glucose,Whole Blood 112 mg/dL (70-110)
[2025-03-11] MEDS: VANCOMYCIN 1,500 MG in SODIUM CHLORIDE 0.9% 500 ML 500 ML IVPB ONE (09:50)
--- NOTE | 2025-03-11 11:29 | P.PN ---
Subjective Patient is seen for follow-up for end-stage renal disease. Status post hemodialysis with UF of 4 L yesterday Some improvement in edema noted. Objective - Vital Signs Vital signs: Vital Signs Temp 97.8 F 03/11/25 08:00 Pulse 72 03/11/25 08:00 Resp 20 03/11/25 08:00 BP 175/89 03/11/25 08:00 Pulse Ox 100 03/11/25 08:00 FiO2 Intake & Output 03/10/25 03/11/25 03/11/25 18:59 06:59 18:59 Intake Total 980 250 Output Total 8500 Balance -7520 250 Weight 77.7 kg Intake: IV 10 Invasive Line 4 10 Oral 480 240 Hemodialysis 500 Output: Gastric Drainage 0 Urine 0 Stool 0 Urine/Stool Mix 0 Emesis 0 Oral Regurgitation 0 Hemodialysis 4500 Hemodialysis Net Amount 4000 Other 0 Other: Voiding Method Toilet Toilet # Voids 0 2 # Bowel Movements 0 - Exam Patient is awake, comfortable, no acute distress Examination of the heart S1 and S2 Left breast area is covered Examination of the lungs bilateral breath sounds are heard, basal crackles Abdomen is soft nontender Examination of lower extremities shows edema 1+ bilaterally - Labs CBC & Chem 7: 03/10/25 06:41 03/10/25 14:47 Labs: Abnormal Lab Results - Last 24 Hours (Table) 03/10/25 03/10/25 03/10/25 Range/Units 13:23 14:47 16:13 Sodium 136 L (137-145) mmol/L Chloride 94 L (98-107) mmol/L Creatinine 2.03 H (0.52-1.04) mg/dL Glucose 151 H (74-99) mg/dL POC Glucose (mg/dL) 168 H 153 H (70-110) mg/dL 03/10/25 03/11/25 Range/Units 20:03 09:32 Sodium (137-145) mmol/L Chloride (98-107) mmol/L Creatinine (0.52-1.04) mg/dL Glucose (74-99) mg/dL POC Glucose (mg/dL) 147 H 112 H (70-110) mg/dL Assessment and Plan Assessment: 1. End-stage renal disease on hemodialysis on Wednesday and Wednesday for volume overload. History of noncompliance with salt and fluid restriction. 2. Volume overload 3. Dyspnea associated with volume overload 4. 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 CKD mineral bone disorder 6. Pericardial effusion during last admission with positive antihistone antibodies, currently off of hydralazine 7. Hypertension with CKD stage V, mostly volume sensitive. 8. Left breast mastitis maintained on antibiotics and warm compresses, being followed by surgery with no plans for intervention. Plan: Repeat hemodialysis in a.m. Discussed salt and fluid restriction Continue current antihypertensive regimen
[2025-03-11 11:42] LABS: Glucose,Whole Blood 116 mg/dL (70-110)
--- NOTE | 2025-03-11 12:36 | P.PN ---
Subjective Pt seen and evaluated at bedside. Patient complaining of left breast pain that is the same compared to yesterday. Asking to go home Objective - Vital Signs Vital signs: Vital Signs Temp 97.8 F 03/11/25 08:00 Pulse 72 03/11/25 08:00 Resp 20 03/11/25 08:00 BP 175/89 03/11/25 08:00 Pulse Ox 100 03/11/25 08:00 FiO2 Intake & Output 03/10/25 03/11/25 03/11/25 18:59 06:59 18:59 Intake Total 980 250 240 Output Total 8500 Balance -7520 250 240 Weight 77.7 kg Intake: IV 10 Invasive Line 4 10 Oral 480 240 240 Hemodialysis 500 Output: Gastric Drainage 0 Urine 0 Stool 0 Urine/Stool Mix 0 Emesis 0 Oral Regurgitation 0 Hemodialysis 4500 Hemodialysis Net Amount 4000 Other 0 Other: Voiding Method Toilet Toilet # Voids 0 2 # Bowel Movements 0 - Exam gen: nad cv: rrr pul: non labored breathing chest: left breast feels firm with no drainable abscess, left nipple tenderness w/ scab and recent bleeding - Labs CBC & Chem 7: 03/10/25 06:41 03/10/25 14:47 Labs: Abnormal Lab Results - Last 24 Hours (Table) 03/10/25 03/10/25 03/10/25 Range/Units 13:23 14:47 16:13 Sodium 136 L (137-145) mmol/L Chloride 94 L (98-107) mmol/L Creatinine 2.03 H (0.52-1.04) mg/dL Glucose 151 H (74-99) mg/dL POC Glucose (mg/dL) 168 H 153 H (70-110) mg/dL 03/10/25 03/11/25 03/11/25 Range/Units 20:03 09:32 11:40 Sodium (137-145) mmol/L Chloride (98-107) mmol/L Creatinine (0.52-1.04) mg/dL Glucose (74-99) mg/dL POC Glucose (mg/dL) 147 H 112 H 116 H (70-110) mg/dL Assessment and Plan Assessment: Left breast mastitis Diabetes PLAN: - left breast ultrasound read pending - Pt complaining of bloody nipple discharge - Continue antibiotics - Apply warm compresses - Shower daily. Keep area clean and dry - No surgical invention planned at this time, She can follow-up as an outpatient for any further surgical care. Ok for discharge, pt wants to go home. Pt was following up with breast surgeon elodia mcfadden, recommend following up w/ Dr. Tip Adrian. Time with Patient: Less than 30
--- NOTE | 2025-03-11 15:13 | P.PN ---
Subjective Progress Note Date: 03/11/25 Principal diagnosis: Reason for follow-up is left mastitis Patient is a 35-year-old female with multiple comorbidities including diabetes mellitus hypertension seizure disorder end-stage renal disease on dialysis presented to hospital with shortness of breath ID consult because of left breast pain concerning for mastitis. On today's evaluation that is 03/11/2025, patient has been afebrile, patient is breathing comfortably and is currently on 1 L nasal cannula oxygen , patient denies having any chest pain and cough, patient denies nausea vomiting or diarrhea and no abdominal pain circumventing of pain in the left breast about the same no change or any drainage. No CBC was done today's report is pending Objective - Vital Signs Vital signs: Vital Signs Temp 98.3 F 03/11/25 12:00 Pulse 72 03/11/25 12:00 Resp 14 03/11/25 12:00 BP 157/77 03/11/25 12:00 Pulse Ox 100 03/11/25 12:00 FiO2 Intake & Output 03/10/25 03/11/25 03/11/25 18:59 06:59 18:59 Intake Total 980 250 240 Output Total 8500 Balance -7520 250 240 Weight 77.7 kg Intake: IV 10 Invasive Line 4 10 Oral 480 240 240 Hemodialysis 500 Output: Gastric Drainage 0 Urine 0 Stool 0 Urine/Stool Mix 0 Emesis 0 Oral Regurgitation 0 Hemodialysis 4500 Hemodialysis Net Amount 4000 Other 0 Other: Voiding Method Toilet Toilet # Voids 0 2 # Bowel Movements 0 - Exam GENERAL DESCRIPTION: Middle-age female lying in bed in no distress RESPIRATORY SYSTEM: Unlabored breathing , decreased breath sounds at bases HEART: S1 S2 regular rate and rhythm , ABDOMEN: Soft , no tenderness EXTREMITIES: No edema feet - Labs CBC & Chem 7: 03/10/25 06:41 03/10/25 14:47 Labs: Abnormal Lab Results - Last 24 Hours (Table) 03/10/25 03/10/25 03/10/25 Range/Units 14:47 16:13 20:03 Sodium 136 L (137-145) mmol/L Chloride 94 L (98-107) mmol/L Creatinine 2.03 H (0.52-1.04) mg/dL Glucose 151 H (74-99) mg/dL POC Glucose (mg/dL) 153 H 147 H (70-110) mg/dL 03/11/25 03/11/25 Range/Units 09:32 11:40 Sodium (137-145) mmol/L Chloride (98-107) mmol/L Creatinine (0.52-1.04) mg/dL Glucose (74-99) mg/dL POC Glucose (mg/dL) 112 H 116 H (70-110) mg/dL Assessment and Plan (1) Mastitis, left, acute Current Visit: Yes Status: Acute Code(s): N61.0 - MASTITIS WITHOUT ABSCESS SNOMED Code(s): 98363100 Plan: 1patient complaining of pain to the left breast area with some tenderness and currently some drainage concerning for mastitis likely from gram-positive's control in this patient with a history of end-stage renal disease will need to cover for more resistant pathogen such as MRSA 2-await report on the breast ultrasound to make sure no evidence of any abscess that may need to be drained 3-patient has been started on vancomycin pharmacy to dose and will see clinical response Dictation was produced using [employer] dictation software. please excuse any grammatical, word or spelling errors. Time with Patient: Less than 30
[2025-03-11 16:20] LABS: Glucose,Whole Blood 102 mg/dL (70-110)
[2025-03-11 18:04] LABS: Glucose,Whole Blood 133 mg/dL (70-110)
--- NOTE | 2025-03-11 19:33 | P.PN ---
Subjective Patient is a 35-year-old female with a past medical history of ESRD on hemodialysis 4 times a week, M TTS with right subclavian permacath awaiting p marcela and liver transplant , hypertension, diabetes type 2 insulin-dependent, hypothyroidism, diabetic neuropathy, gastroparesis,, anxiety/depression, currently everyday smoker and history of marijuana and methamphetamine use. Patient was recently discharged from the hospital was admitted due to hype rtensive emergency and pulmonary edema and fluid overload. Patient presents to ER with complaints of worsening shortness of breath since yesterday. Last hemodialysis was on Wednesday. Also complains of cough and leg swelling. Complains of nausea. No episodes of vomiting. Denies any chest pain or palpitations. No fever no chills. Patient states that she has been taking her insulin regimen as recommended. Chest x-ray showed cardiomegaly with patchy interstitial prominence suggesting CHF exacerbation. Correlate clinically. EKG showed sinus rhythm Laboratory data showed WBC 11.2 hemoglobin 10.0 and platelets 259 sodium 125 potassium 5.2 with slight hemolysis, chloride 82 BUN 74 creatinine 4.96 and blood sugar 612 anion gap 18 and bicarb is 25 lactic acid 2.1 AST 50 ALT 112 alk phos 211 and proBNP 81,109, acetone negative 02/27/2025 Patient is lying in the bed. Awake alert and oriented x 3. No complaints of chest pain. Shortness of breath is improving. Complains of nausea. No cough or sputum production. Patient underwent hemodialysis yesterday and is also scheduled today. No fever no chills. Blood sugar is controlled. Laboratory data showed WBC 9.6 hemoglobin 9.6 and platelets 228 sodium 129 potassium 4.7 chloride 90 bicarb is 26 BUN 55 and creatinine 4.13 and blood s ugar 189 and calcium 9.1. Nephrology is on board. 02/28/2025 Patient is resting in the bed. Awake alert and oriented x 3. No complaints of chest pain. Shortness of breath is much improved. Able to tolerate oral diet. No cough or sputum production. Blood pressure is also improved. Patient is requiring 2 L oxygen via nasal cannula. CBG went down to 49 around 1130 which is improved now. Hemodialysis tomorrow. 03/01/2025 Patient is lying in the bed. Awake alert and oriented x 3. Complains of significant cough and whitish to brownish sputum production. Also complains of nausea. Patient did have hemodialysis yesterday with 2.5 L of ultrafiltration. Again scheduled today. No complaints of chest pain. Shortness of breath is better. Patient has been afebrile. Laboratory data reviewed. 03/02/2025 Patient is lying in the bed awake alert and oriented x 3. She complains of cough and shortness of breath. Patient underwent hemodialysis yesterday and next hemodialysis session tomorrow. No complaints of chest pain. Patient has been afebrile. Repeat chest x-ray showed improvement in pulmonary vascular congestion. Patient is tolerating oral diet. Lab data reviewed. 03/03/2025 Patient is lying in the bed. Awake alert and oriented. Patient states that she was nauseous this morning. Also complains of shortness of breath still. No episodes of vomiting. No fever no chills. Patient is undergoing hemodialysis today. Lab data showed WBC 12.5 hemoglobin 8.5 and platelets 239 sodium 131 potassium 5.7 chloride 93 bicarb is 25 BUN 57 and creatinine 5.45 and blood sugar 207. Phosphorus 5.4. Nephrology is on board. 03/04/2025 Patient is lying in the bed but awake alert and oriented. Complains of left upper extremity swelling. Rates patient is still having bilateral swelling. Scheduled for hemodialysis. Nephrology on board. Patient is also on fluid restriction. Laboratory data showed WBC 8.2 hemoglobin 8.9 and platelets 240 sodium 133 potassium 4.9 chloride 86 bicarbonate 26 BUN 37 creatinine 4.1 and blood sugar 130. Nephrology is on board. 03/05/2025. Patient is resting in the bed. Awake alert and oriented. Still complains of shortness of breath and worsening left upper extremity swelling. Duplex scan is negative for DVT. Patient was seen by vascular surgery recommends compression stockings and Jv wrap to the left upper extremity. Patient is also complaining of left breast swelling and tender. The patient has been afebrile. Laboratory data showed WBC 8.1 hemoglobin 8.6 and platelets 213 sodium 132 potassium 5.9 chloride 97 bicarb is 24 BUN 55 creatinine 4.98 and blood sugar 67. Calcium 9.3 03/06/2025 Patient is lying in the bed. Awake alert and oriented. Still complains of left arm pain and also left breast discomfort with swelling. No fever no chills. No cough or sputum production. Complains of nausea. No gross vomiting. Patient is getting hemodialysis. Laboratory data showed sodium 136 potassium 4.9 chloride 95 bicarb is 28 BUN 39 and creatinine 4.08 and blood sugar 133. Calcium 9.0. 03/07 Patient still complains from some shortness of breath, she still has leg edema She is able to walk. She has good appetite but she is constipated despite being on Colace and MiraLAX No abdominal pain or tenderness She is complaining from left breast pain and tenderness x 1 week. No open wound or abnormal discharge. Ultrasound today showing possible mastoiditis per report. I reviewed the ultrasound by myself We will discharge patient on Augmentin and consult gynecology service Patient still getting hemodialysis for her end-stage renal disease and diastolic CHF with nephrology following closely Left upper extremity and graft is in Arch compression stocking Vascular surgery team evaluated the patient and signed off the case from their perspective 03/08 Patient sugars better controlled after increasing her Lantus and Humalog doses She is still complaining from cough and some chest pain with cough, exertional dyspnea related to her diastolic CHF although it is improving. She is getting hemodialysis today. No significant leg edema She still has left upper extremity pain, she was already evaluated by vascular surgery team and she is getting hemodialysis currently through her graft in the left upper extremity. Patient will require follow-up as an outpatient vascular surgery team She is placed on Augmentin for possible left mastitis. Yesterday her elementary school science teacher Dr. Lebron does not think they need to see the patient as she was not taking control pills. He recommended surgical team consult which was placed for further evaluation and recommendation. 03/09 Patient breathing and chest congestion and exertional dyspnea improved with hemodialysis. She still have coughing on Robitussin added today She is still complaining from nausea and pain in her left breast. She is on Augmentin. Surgery team following closely. The recommend to repeat breast ultrasound for further evaluation to see the progress or regress in the treatment She is continued on hemodialysis Patient was asking to be discharged home today. She says she will follow-up with her elementary school science teacher Dr. Galar[facility] Vascular surgery evaluated the patient for left upper extremities pain and cleared for discharge. Patient needs to follow-up with vascular surgery as an outpatient, she was informed and she agrees 03/10 Patient still complaining from pain in her left breast. Her left breast fullness behind the nipple looks larger and tender. As per report there is also some bloody discharge occasionally from the left nipple. Repeat ultrasound requested yesterday and pending results. We called for the lab to obtain the result She is currently on Augmentin. But because of continued symptoms and on examination the fullness looks larger we are going to consult infectious team. Surgery team also following closely She is complaining from coughing persistently despite giving her cough medicine. She is getting hemodialysis today Her left upper pain controlled No other new complaints will continue close monitoring (All encounter and exam done in the presence of the bedside nurse Becki and after patient gave verbal consent) 03/11 Patient with left mastitis and nodular density below the nipple which is tender and it was enlarging as of yesterday therefore ID team was consulted Antibiotics were changed from Augmentin into IV vancomycin Patient today looks similar, however she is not in distress and eating her diet with no difficulty. No other new complaint Continue with hemodialysis per nephrology team Repeat ultrasound of the breast is done but report still not available Continue with insulin we will decrease her Lantus 14 units up to 15 units twice daily. Also increase her Humalog 8 units up to 12 units with meals but with the treatment of infection she requires less insulin and lowered the dose to 14 units of Lantus again and Humalog to 11 units Objective - Vital Signs Vital signs: Vital Signs Temp 98.4 F 03/11/25 16:00 Pulse 82 03/11/25 16:00 Resp 14 03/11/25 16:00 BP 166/91 03/11/25 16:00 Pulse Ox 98 03/11/25 16:00 FiO2 Intake & Output 03/11/25 03/11/25 03/12/25 06:59 18:59 06:59 Intake Total 250 935 Output Total 0 Balance 250 935 Weight 77.7 kg Intake: IV 10 5 Invasive Line 4 10 5 Oral 240 930 Output: Urine 0 Other: Voiding Method Toilet Bedside Commode # Voids 2 0 # Bowel Movements 0 - Exam GENERAL: The patient is alert and oriented x3, not in any acute distress. Well developed, well nourished. HEENT: Pupils are round and equally reacting to light. EOMI. No scleral icterus. No conjunctival pallor. Normocephalic, atraumatic. No pharyngeal erythema. No thyromegaly. CARDIOVASCULAR: S1 and S2 present. No murmurs, rubs, or gallops. -PULMONARY: Chest is clear to auscultation, no wheezing , bilateral basal crackles. -lwft Breast exam(after patient gave verbal consent and in the presence of bedside nurse Maryan) no erythema or swelling no nipple abnormality. Tender nodule behind the left nipple ABDOMEN: Soft, nontender, nondistended, normoactive bowel sounds. No palpable organomegaly. MUSCULOSKELETAL: No joint swelling or deformity. -EXTREMITIES: No cyanosis, clubbing,. 2+ bilateral pitting leg edema. NEUROLOGICAL: Gross neurological examination did not reveal any focal deficits. SKIN: No rashes. no petechiae. - Labs CBC & Chem 7: 03/10/25 06:41 03/10/25 14:47 Labs: Abnormal Lab Results - Last 24 Hours (Table) 03/10/25 03/11/25 03/11/25 Range/Units 20:03 09:32 11:40 POC Glucose (mg/dL) 147 H 112 H 116 H (70-110) mg/dL 03/11/25 Range/Units 18:02 POC Glucose (mg/dL) 133 H (70-110) mg/dL Assessment and Plan Assessment: acute left mastitis Worsening shortness of breath due to acute diastolic CHF and fluid overload ESRD on hemodialysis 4 times per week M TTS Left upper extremity worsening swelling. Rule out DVT. Venous Doppler was negative for DVT And dialysis graft appears patent, transfer text. Patient cleared by vascular surgery team Hypertension Acute acute on chronic CHF with preserved EF Hyperglycemia with uncontrolled diabetes type 1 Hyperkalemia secondary to CKD History of CVA/TIA with no residual weakness Diabetic gastroparesis and diabetic peripheral neuropathy History of optic neuritis Hypothyroidism Plan: Continue with IV vancomycin per ID team Continue with hemodialysis per nephrology team Vascular surgery team signed off the case Continue with insulin. consult ID team Continue with Lantus 14 units twice daily and Humalog 11 units 3 times daily. At home she was taking 8 units 3 times daily Labs and medication were reviewed.. Continue same treatment. Continue with symptomatic treatment. Resume home medication. Monitor labs and vitals. DVT and GI prophylaxis. Further recommendations as per clinical course of the patient DVT prophylaxis: Subcutaneous heparin GI Prophylaxis: Pepcid Prognosis is guarded
[2025-03-11 19:50] LABS: Glucose,Whole Blood 188 mg/dL (70-110)
[2025-03-11] MEDS: INSULIN GLARGINE (LANTUS) 100 UNIT/ML SYR SQ SCH (21:21)
[2025-03-11 23:25] LABS: Glucose,Whole Blood 48 mg/dL (70-110)
[2025-03-11 23:57] LABS: Glucose,Whole Blood 62 mg/dL (70-110)
[2025-03-12 00:42] LABS: Glucose,Whole Blood 73 mg/dL (70-110)
[2025-03-12 02:48] LABS: Glucose,Whole Blood 124 mg/dL (70-110)
[2025-03-12 06:06] LABS: Glucose,Whole Blood 161 mg/dL (70-110)
[2025-03-12] MEDS: INSULIN LISPRO (HumaLOG) 100 UNIT/ML 10 mL VL SQ SCH ×2 (06:54→13:36)
--- NOTE | 2025-03-12 08:35 | USB ---
Reason for Exam: Clinical finding. Indicated Problems: Lump or thickening of the left side. Technique: Method: Whole Breast Handheld. Doppler: Color. Patient scanned semi erect . Findings: The whole breast of the left breast, the axilla of the left breast and the retroareolar of the left breast were scanned. Whole breast scanned, thickening seen throughout. Echogenic foci seen throughout. No definite masses or fluid collections seen. Prominent vessel redemonstrated. Findings suggest mastoiditis. Correlate clinically. Polyp prominent left axillary lymph node measuring 1.6 x 1.6 x 3.3 cm with a cortical thickness of 0.4 cm. Probably reactive. Overall Assessment: Probably benign, BI-RAD 3 Management: Diagnostic Breast Ultrasound of the left breast in 1 month. A clinical breast exam by your physician is recommended on an annual basis and results should be correlated with mammographic findings. This exam should not preclude additional follow-up of suspicious palpable abnormalities. Results were given to the patient verbally at the time of exam. [facility], , 03/10/2025 11:38 AM. Electronically signed and approved by: Abel Barillas D.O.
--- NOTE | 2025-03-12 09:29 | P.PN ---
Subjective Patient is a 35-year-old female with a past medical history of ESRD on hemodialysis 4 times a week, M TTS with right subclavian permacath awaiting p marcela and liver transplant , hypertension, diabetes type 2 insulin-dependent, hypothyroidism, diabetic neuropathy, gastroparesis,, anxiety/depression, currently everyday smoker and history of marijuana and methamphetamine use. Patient was recently discharged from the hospital was admitted due to hype rtensive emergency and pulmonary edema and fluid overload. Patient presents to ER with complaints of worsening shortness of breath since yesterday. Last hemodialysis was on Wednesday. Also complains of cough and leg swelling. Complains of nausea. No episodes of vomiting. Denies any chest pain or palpitations. No fever no chills. Patient states that she has been taking her insulin regimen as recommended. Chest x-ray showed cardiomegaly with patchy interstitial prominence suggesting CHF exacerbation. Correlate clinically. EKG showed sinus rhythm Laboratory data showed WBC 11.2 hemoglobin 10.0 and platelets 259 sodium 125 potassium 5.2 with slight hemolysis, chloride 82 BUN 74 creatinine 4.96 and blood sugar 612 anion gap 18 and bicarb is 25 lactic acid 2.1 AST 50 ALT 112 alk phos 211 and proBNP 81,109, acetone negative 02/27/2025 Patient is lying in the bed. Awake alert and oriented x 3. No complaints of chest pain. Shortness of breath is improving. Complains of nausea. No cough or sputum production. Patient underwent hemodialysis yesterday and is also scheduled today. No fever no chills. Blood sugar is controlled. Laboratory data showed WBC 9.6 hemoglobin 9.6 and platelets 228 sodium 129 potassium 4.7 chloride 90 bicarb is 26 BUN 55 and creatinine 4.13 and blood s ugar 189 and calcium 9.1. Nephrology is on board. 02/28/2025 Patient is resting in the bed. Awake alert and oriented x 3. No complaints of chest pain. Shortness of breath is much improved. Able to tolerate oral diet. No cough or sputum production. Blood pressure is also improved. Patient is requiring 2 L oxygen via nasal cannula. CBG went down to 49 around 1130 which is improved now. Hemodialysis tomorrow. 03/01/2025 Patient is lying in the bed. Awake alert and oriented x 3. Complains of significant cough and whitish to brownish sputum production. Also complains of nausea. Patient did have hemodialysis yesterday with 2.5 L of ultrafiltration. Again scheduled today. No complaints of chest pain. Shortness of breath is better. Patient has been afebrile. Laboratory data reviewed. 03/02/2025 Patient is lying in the bed awake alert and oriented x 3. She complains of cough and shortness of breath. Patient underwent hemodialysis yesterday and next hemodialysis session tomorrow. No complaints of chest pain. Patient has been afebrile. Repeat chest x-ray showed improvement in pulmonary vascular congestion. Patient is tolerating oral diet. Lab data reviewed. 03/03/2025 Patient is lying in the bed. Awake alert and oriented. Patient states that she was nauseous this morning. Also complains of shortness of breath still. No episodes of vomiting. No fever no chills. Patient is undergoing hemodialysis today. Lab data showed WBC 12.5 hemoglobin 8.5 and platelets 239 sodium 131 potassium 5.7 chloride 93 bicarb is 25 BUN 57 and creatinine 5.45 and blood sugar 207. Phosphorus 5.4. Nephrology is on board. 03/04/2025 Patient is lying in the bed but awake alert and oriented. Complains of left upper extremity swelling. Rates patient is still having bilateral swelling. Scheduled for hemodialysis. Nephrology on board. Patient is also on fluid restriction. Laboratory data showed WBC 8.2 hemoglobin 8.9 and platelets 240 sodium 133 potassium 4.9 chloride 86 bicarbonate 26 BUN 37 creatinine 4.1 and blood sugar 130. Nephrology is on board. 03/05/2025. Patient is resting in the bed. Awake alert and oriented. Still complains of shortness of breath and worsening left upper extremity swelling. Duplex scan is negative for DVT. Patient was seen by vascular surgery recommends compression stockings and Jv wrap to the left upper extremity. Patient is also complaining of left breast swelling and tender. The patient has been afebrile. Laboratory data showed WBC 8.1 hemoglobin 8.6 and platelets 213 sodium 132 potassium 5.9 chloride 97 bicarb is 24 BUN 55 creatinine 4.98 and blood sugar 67. Calcium 9.3 03/06/2025 Patient is lying in the bed. Awake alert and oriented. Still complains of left arm pain and also left breast discomfort with swelling. No fever no chills. No cough or sputum production. Complains of nausea. No gross vomiting. Patient is getting hemodialysis. Laboratory data showed sodium 136 potassium 4.9 chloride 95 bicarb is 28 BUN 39 and creatinine 4.08 and blood sugar 133. Calcium 9.0. 03/07 Patient still complains from some shortness of breath, she still has leg edema She is able to walk. She has good appetite but she is constipated despite being on Colace and MiraLAX No abdominal pain or tenderness She is complaining from left breast pain and tenderness x 1 week. No open wound or abnormal discharge. Ultrasound today showing possible mastoiditis per report. I reviewed the ultrasound by myself We will discharge patient on Augmentin and consult gynecology service Patient still getting hemodialysis for her end-stage renal disease and diastolic CHF with nephrology following closely Left upper extremity and graft is in Arch compression stocking Vascular surgery team evaluated the patient and signed off the case from their perspective 03/08 Patient sugars better controlled after increasing her Lantus and Humalog doses She is still complaining from cough and some chest pain with cough, exertional dyspnea related to her diastolic CHF although it is improving. She is getting hemodialysis today. No significant leg edema She still has left upper extremity pain, she was already evaluated by vascular surgery team and she is getting hemodialysis currently through her graft in the left upper extremity. Patient will require follow-up as an outpatient vascular surgery team She is placed on Augmentin for possible left mastitis. Yesterday her automotive wholesale parts advisor Dr. Lebron does not think they need to see the patient as she was not taking control pills. He recommended surgical team consult which was placed for further evaluation and recommendation. 03/09 Patient breathing and chest congestion and exertional dyspnea improved with hemodialysis. She still have coughing on Robitussin added today She is still complaining from nausea and pain in her left breast. She is on Augmentin. Surgery team following closely. The recommend to repeat breast ultrasound for further evaluation to see the progress or regress in the treatment She is continued on hemodialysis Patient was asking to be discharged home today. She says she will follow-up with her automotive wholesale [employer] advisor Dr. Galarza from [facility] Vascular surgery evaluated the patient for left upper extremities pain and cleared for discharge. Patient needs to follow-up with vascular surgery as an outpatient, she was informed and she agrees 03/10 Patient still complaining from pain in her left breast. Her left breast fullness behind the nipple looks larger and tender. As per report there is also some bloody discharge occasionally from the left nipple. Repeat ultrasound requested yesterday and pending results. We called for the lab to obtain the result She is currently on Augmentin. But because of continued symptoms and on examination the fullness looks larger we are going to consult infectious team. Surgery team also following closely She is complaining from coughing persistently despite giving her cough medicine. She is getting hemodialysis today Her left upper pain controlled No other new complaints will continue close monitoring (All encounter and exam done in the presence of the bedside nurse Becki and after patient gave verbal consent) 03/11 Patient with left mastitis and nodular density below the nipple which is tender and it was enlarging as of yesterday therefore ID team was consulted Antibiotics were changed from Augmentin into IV vancomycin Patient today looks similar, however she is not in distress and eating her diet with no difficulty. No other new complaint Continue with hemodialysis per nephrology team Repeat ultrasound of the breast is done but report still not available Continue with insulin we will decrease her Lantus 14 units up to 15 units twice daily. Also increase her Humalog 8 units up to 12 units with meals but with the treatment of infection she requires less insulin and lowered the dose to 14 units of Lantus again and Humalog to 11 units 03/12 Still has coughing which bothers her no chest pain. No dyspnea at rest Also complains from headache and pain in her left breast Getting through hemodialysis today and 4.5 L will be taken out Sugars controlled. She will lower her Levemir to her previous dose of 14 which is already done but we will lower Humalog from 11 down to her previous dose of 8 units as sugar was low this morning despite lowering insulin dose yesterday. However currently awake alert and eating her breakfast Objective - Vital Signs Vital signs: Vital Signs Temp 97.7 F 03/12/25 08:00 Pulse 69 03/12/25 08:00 Resp 20 03/12/25 08:00 BP 143/82 03/12/25 08:00 Pulse Ox 100 03/12/25 08:00 FiO2 Intake & Output 03/11/25 03/12/25 03/12/25 18:59 06:59 18:59 Intake Total 935 1225 360 Output Total 0 Balance 935 1225 360 Weight 78 kg Intake: IV 5 5 Invasive Line 4 5 5 Oral 930 1220 360 Output: Urine 0 Other: Voiding Method Bedside Commode Toilet # Voids 0 # Bowel Movements 0 - Exam GENERAL: The patient is alert and oriented x3, not in any acute distress. Well developed, well nourished. HEENT: Pupils are round and equally reacting to light. EOMI. No scleral icterus. No conjunctival pallor. Normocephalic, atraumatic. No pharyngeal erythema. No thyromegaly. CARDIOVASCULAR: S1 and S2 present. No murmurs, rubs, or gallops. -PULMONARY: Chest is clear to auscultation, no wheezing , bilateral basal crackles. -lwft Breast exam(after patient gave verbal consent and in the presence of bedside nurse Maryan) no erythema or swelling no nipple abnormality. Tender nodule behind the left nipple ABDOMEN: Soft, nontender, nondistended, normoactive bowel sounds. No palpable organomegaly. MUSCULOSKELETAL: No joint swelling or deformity. -EXTREMITIES: No cyanosis, clubbing,. 2+ bilateral pitting leg edema. NEUROLOGICAL: Gross neurological examination did not reveal any focal deficits. SKIN: No rashes. no petechiae. - Labs CBC & Chem 7: 03/10/25 06:41 03/10/25 14:47 Labs: Abnormal Lab Results - Last 24 Hours (Table) 03/11/25 03/11/25 03/11/25 Range/Units 09:32 11:40 18:02 POC Glucose (mg/dL) 112 H 116 H 133 H (70-110) mg/dL 03/11/25 03/11/25 03/11/25 Range/Units 19:48 23:20 23:55 POC Glucose (mg/dL) 188 H 48 L* 62 L (70-110) mg/dL 03/12/25 03/12/25 Range/Units 02:47 06:05 POC Glucose (mg/dL) 124 H 161 H (70-110) mg/dL Assessment and Plan Assessment: acute left mastitis Worsening shortness of breath due to acute diastolic CHF and fluid overload ESRD on hemodialysis 4 times per week M TTS Left upper extremity worsening swelling. Rule out DVT. Venous Doppler was negative for DVT And dialysis graft appears patent, transfer text. Patient cleared by vascular surgery team Hypertension Acute acute on chronic CHF with preserved EF Hyperglycemia with uncontrolled diabetes type 1 Hyperkalemia secondary to CKD History of CVA/TIA with no residual weakness Diabetic gastroparesis and diabetic peripheral neuropathy History of optic neuritis Hypothyroidism Plan: Continue with IV vancomycin per ID team Continue with hemodialysis per nephrology team Vascular surgery team signed off the case Continue with insulin. consult ID team Continue with Lantus 14 units twice daily and Humalog 11 units 3 times daily. At home she was taking 8 units 3 times daily Labs and medication were reviewed.. Continue same treatment. Continue with symptomatic treatment. Resume home medication. Monitor labs and vitals. DVT and GI prophylaxis. Further recommendations as per clinical course of the patient DVT prophylaxis: Subcutaneous heparin GI Prophylaxis: Pepcid Prognosis is guarded
[2025-03-12 10:36] LABS: African American GFR (CKD) 15 (>60 ml/min/1.73 sqM); Anion Gap 13 mmol/L; Blood Urea Nitrogen 37 mg/dL (7-17); Calcium 9.8 mg/dL (8.4-10.2); Carbon Dioxide 23 mmol/L (22-30); Chloride 97 mmol/L (98-107); Glucose 131 mg/dL (74-99); Non-African American GFR(CKD) 13 (>60 ml/min/1.73 sqM); Potassium 5.8 mmol/L (3.5-5.1); Sodium 133 mmol/L (137-145)
[2025-03-12 10:41] LABS: Vancomycin,Random 34.5 ug/mL
--- NOTE | 2025-03-12 11:04 | P.PN ---
Subjective Patient is seen for follow-up for end-stage renal disease. Seen on hemodialysis today with goal UF of about 4.5 L Some improvement in edema noted but patient remains volume overloaded Objective - Vital Signs Vital signs: Vital Signs Temp 97.7 F 03/12/25 08:00 Pulse 69 03/12/25 08:00 Resp 20 03/12/25 08:00 BP 143/82 03/12/25 08:00 Pulse Ox 100 03/12/25 08:00 FiO2 Intake & Output 03/11/25 03/12/25 03/12/25 18:59 06:59 18:59 Intake Total 935 1225 360 Output Total 0 Balance 935 1225 360 Weight 78 kg Intake: IV 5 5 Invasive Line 4 5 5 Oral 930 1220 360 Output: Urine 0 Other: Voiding Method Bedside Commode Toilet # Voids 0 # Bowel Movements 0 - Exam Patient is awake, comfortable, no acute distress Examination of the heart S1 and S2 Left breast area is covered Examination of the lungs bilateral breath sounds are heard, basal crackles Abdomen is soft nontender Examination of lower extremities shows edema 1+ bilaterally - Labs CBC & Chem 7: 03/10/25 06:41 03/12/25 07:05 Labs: Abnormal Lab Results - Last 24 Hours (Table) 03/11/25 03/11/25 03/11/25 Range/Units 11:40 18:02 19:48 Sodium (137-145) mmol/L Potassium (3.5-5.1) mmol/L Chloride (98-107) mmol/L BUN (7-17) mg/dL Creatinine (0.52-1.04) mg/dL Glucose (74-99) mg/dL POC Glucose (mg/dL) 116 H 133 H 188 H (70-110) mg/dL 03/11/25 03/11/25 03/12/25 Range/Units 23:20 23:55 02:47 Sodium (137-145) mmol/L Potassium (3.5-5.1) mmol/L Chloride (98-107) mmol/L BUN (7-17) mg/dL Creatinine (0.52-1.04) mg/dL Glucose (74-99) mg/dL POC Glucose (mg/dL) 48 L* 62 L 124 H (70-110) mg/dL 03/12/25 03/12/25 Range/Units 06:05 07:05 Sodium 133 L (137-145) mmol/L Potassium 5.8 H (3.5-5.1) mmol/L Chloride 97 L (98-107) mmol/L BUN 37 H (7-17) mg/dL Creatinine 4.16 H (0.52-1.04) mg/dL Glucose 131 H (74-99) mg/dL POC Glucose (mg/dL) 161 H (70-110) mg/dL Assessment and Plan Assessment: 1. End-stage renal disease on hemodialysis on Wednesday and Wednesday for volume overload. History of noncompliance with salt and fluid restriction. 2. Volume overload 3. Dyspnea associated with volume overload 4. 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 CKD mineral bone disorder 6. Pericardial effusion during last admission with positive antihistone antibodies, currently off of hydralazine 7. Hypertension with CKD stage V, mostly volume sensitive. 8. Left breast mastitis maintained on antibiotics and warm compresses, being followed by surgery with no plans for intervention. Plan: Repeat hemodialysis in a.m. Discussed salt and fluid restriction Continue current antihypertensive regimen
[2025-03-12 11:57] LABS: Glucose,Whole Blood 93 mg/dL (70-110)
[2025-03-12 13:33] LABS: Glucose,Whole Blood 170 mg/dL (70-110)
--- NOTE | 2025-03-12 15:22 | P.PN ---
Subjective Progress Note Date: 03/12/25 SURGICAL PROGRESS NOTE CHIEF COMPLAINT: Fluid overload HISTORY OF PRESENT ILLNESS: Patient continues to complain of left breast pain. She is complaining of being more congested today. Repeat left breast ultrasound results report no fluid collections. Findings suggest mastitis. Polyp prominent left axillary lymph node measuring 1.6 x 1.6 x 3.3 cm probably reactive. PHYSICAL EXAM: VITAL SIGNS: Reviewed. GENERAL: Well-developed in no acute distress. BREAST: Breasts are symmetrical. Left breast no erythema. Mild swelling noted to left breast with a little more swelling noted. No drainage from the nipple. Nipple has a small scab and is less inverted. No erythema. Breast is tender with palpation. NEUROLOGIC: Alert and oriented. Cranial nerves II through XII grossly intact. ASSESSMENT: 1. Left breast mastitis 2. Diabetes PLAN: -No surgical intervention planned -Continue antibiotics -Recommend that patient follows up with Dr. Adrian, her breast surgeon that she has seen previously. Patient may require a ductal excision of left breast. - Surgical service will sign off. Please call with any questions or concerns. Physician Supervisor Painting note has been reviewed by physician. Signing provider agrees with the documented findings, assessment, and plan of care. Objective - Vital Signs Vital signs: Vital Signs Temp 98.5 F 03/12/25 12:00 Pulse 74 03/12/25 14:00 Resp 18 03/12/25 14:00 BP 150/76 03/12/25 12:00 Pulse Ox 100 03/12/25 12:00 FiO2 Intake & Output 03/11/25 03/12/25 03/12/25 18:59 06:59 18:59 Intake Total 935 1225 380 Output Total 0 Balance 935 1225 380 Weight 78 kg Intake: IV 5 5 20 Invasive Line 4 5 5 20 Oral 930 1220 360 Output: Urine 0 Other: Voiding Method Bedside Commode Toilet Toilet # Voids 0 # Bowel Movements 0 - Labs CBC & Chem 7: 03/10/25 06:41 03/12/25 07:05 Labs: Abnormal Lab Results - Last 24 Hours (Table) 03/11/25 03/11/25 03/11/25 Range/Units 18:02 19:48 23:20 Sodium (137-145) mmol/L Potassium (3.5-5.1) mmol/L Chloride (98-107) mmol/L BUN (7-17) mg/dL Creatinine (0.52-1.04) mg/dL Glucose (74-99) mg/dL POC Glucose (mg/dL) 133 H 188 H 48 L* (70-110) mg/dL 03/11/25 03/12/25 03/12/25 Range/Units 23:55 02:47 06:05 Sodium (137-145) mmol/L Potassium (3.5-5.1) mmol/L Chloride (98-107) mmol/L BUN (7-17) mg/dL Creatinine (0.52-1.04) mg/dL Glucose (74-99) mg/dL POC Glucose (mg/dL) 62 L 124 H 161 H (70-110) mg/dL 03/12/25 03/12/25 Range/Units 07:05 13:32 Sodium 133 L (137-145) mmol/L Potassium 5.8 H (3.5-5.1) mmol/L Chloride 97 L (98-107) mmol/L BUN 37 H (7-17) mg/dL Creatinine 4.16 H (0.52-1.04) mg/dL Glucose 131 H (74-99) mg/dL POC Glucose (mg/dL) 170 H (70-110) mg/dL Assessment and Plan Assessment: stable for discharge Time with Patient: Less than 30
[2025-03-12 17:20] LABS: Glucose,Whole Blood 87 mg/dL (70-110)
[2025-03-12 20:16] LABS: Glucose,Whole Blood 100 mg/dL (70-110)
[2025-03-13 05:59] LABS: Glucose,Whole Blood 138 mg/dL (70-110)
--- NOTE | 2025-03-13 08:02 | P.PN ---
Subjective Progress Note Date: 03/12/25 Principal diagnosis: Reason for follow-up is left mastitis Patient is a 35-year-old female with multiple comorbidities including diabetes mellitus hypertension seizure disorder end-stage renal disease on dialysis presented to hospital with shortness of breath ID consult because of left breast pain concerning for mastitis. On today's evaluation that is 03/12/2025, Patient is afebrile this morning patient denies having any chest pain still complaining of shortness of breath but no cough he did complain of pain to the left breast area no worsening or improvement no drainage. Patient did have a creatinine 4.16 no CBC was done today breast ultrasound did not show thickening and left axillary lymphadenopathy Objective - Vital Signs Vital signs: Vital Signs Temp 98.5 F 03/12/25 12:00 Pulse 74 03/12/25 12:00 Resp 18 03/12/25 12:00 BP 150/76 03/12/25 12:00 Pulse Ox 100 03/12/25 12:00 FiO2 Intake & Output 03/11/25 03/12/25 03/12/25 18:59 06:59 18:59 Intake Total 935 1225 370 Output Total 0 Balance 935 1225 370 Weight 78 kg Intake: IV 5 5 10 Invasive Line 4 5 5 10 Oral 930 1220 360 Output: Urine 0 Other: Voiding Method Bedside Commode Toilet # Voids 0 # Bowel Movements 0 - Exam GENERAL DESCRIPTION: Middle-age female lying in bed in no distress RESPIRATORY SYSTEM: Unlabored breathing , decreased breath sounds at bases HEART: S1 S2 regular rate and rhythm , ABDOMEN: Soft , no tenderness EXTREMITIES: No edema feet - Labs CBC & Chem 7: 03/10/25 06:41 03/12/25 07:05 Labs: Abnormal Lab Results - Last 24 Hours (Table) 03/11/25 03/11/25 03/11/25 Range/Units 18:02 19:48 23:20 Sodium (137-145) mmol/L Potassium (3.5-5.1) mmol/L Chloride (98-107) mmol/L BUN (7-17) mg/dL Creatinine (0.52-1.04) mg/dL Glucose (74-99) mg/dL POC Glucose (mg/dL) 133 H 188 H 48 L* (70-110) mg/dL 03/11/25 03/12/25 03/12/25 Range/Units 23:55 02:47 06:05 Sodium (137-145) mmol/L Potassium (3.5-5.1) mmol/L Chloride (98-107) mmol/L BUN (7-17) mg/dL Creatinine (0.52-1.04) mg/dL Glucose (74-99) mg/dL POC Glucose (mg/dL) 62 L 124 H 161 H (70-110) mg/dL 03/12/25 03/12/25 Range/Units 07:05 13:32 Sodium 133 L (137-145) mmol/L Potassium 5.8 H (3.5-5.1) mmol/L Chloride 97 L (98-107) mmol/L BUN 37 H (7-17) mg/dL Creatinine 4.16 H (0.52-1.04) mg/dL Glucose 131 H (74-99) mg/dL POC Glucose (mg/dL) 170 H (70-110) mg/dL Assessment and Plan (1) Mastitis, left, acute Current Visit: Yes Status: Acute Code(s): N61.0 - MASTITIS WITHOUT ABSCESS SNOMED Code(s): 52593509 Plan: 1patient complaining of pain to the left breast area with some tenderness and currently some drainage concerning for mastitis likely from gram-positive's control in this patient with a history of end-stage renal disease will need to cover for more resistant pathogen such as MRSA 2- breast ultrasound did show skin thickening and left axilla lymphadenopathy will benefit from biopsy surgery recommend the patient to follow-up with her own breast surgeon for now continue with vancomycin pharmacy to dose Dictation was produced using [employer] dictation software. please excuse any grammatical, word or spelling errors. Time with Patient: Less than 30
--- NOTE | 2025-03-13 09:22 | P.PN ---
Subjective Patient is a 35-year-old female with a past medical history of ESRD on hemodialysis 4 times a week, M TTS with right subclavian permacath awaiting p marcela and liver transplant , hypertension, diabetes type 2 insulin-dependent, hypothyroidism, diabetic neuropathy, gastroparesis,, anxiety/depression, currently everyday smoker and history of marijuana and methamphetamine use. Patient was recently discharged from the hospital was admitted due to hype rtensive emergency and pulmonary edema and fluid overload. Patient presents to ER with complaints of worsening shortness of breath since yesterday. Last hemodialysis was on Wednesday. Also complains of cough and leg swelling. Complains of nausea. No episodes of vomiting. Denies any chest pain or palpitations. No fever no chills. Patient states that she has been taking her insulin regimen as recommended. Chest x-ray showed cardiomegaly with patchy interstitial prominence suggesting CHF exacerbation. Correlate clinically. EKG showed sinus rhythm Laboratory data showed WBC 11.2 hemoglobin 10.0 and platelets 259 sodium 125 potassium 5.2 with slight hemolysis, chloride 82 BUN 74 creatinine 4.96 and blood sugar 612 anion gap 18 and bicarb is 25 lactic acid 2.1 AST 50 ALT 112 alk phos 211 and proBNP 81,109, acetone negative 02/27/2025 Patient is lying in the bed. Awake alert and oriented x 3. No complaints of chest pain. Shortness of breath is improving. Complains of nausea. No cough or sputum production. Patient underwent hemodialysis yesterday and is also scheduled today. No fever no chills. Blood sugar is controlled. Laboratory data showed WBC 9.6 hemoglobin 9.6 and platelets 228 sodium 129 potassium 4.7 chloride 90 bicarb is 26 BUN 55 and creatinine 4.13 and blood s ugar 189 and calcium 9.1. Nephrology is on board. 02/28/2025 Patient is resting in the bed. Awake alert and oriented x 3. No complaints of chest pain. Shortness of breath is much improved. Able to tolerate oral diet. No cough or sputum production. Blood pressure is also improved. Patient is requiring 2 L oxygen via nasal cannula. CBG went down to 49 around 1130 which is improved now. Hemodialysis tomorrow. 03/01/2025 Patient is lying in the bed. Awake alert and oriented x 3. Complains of significant cough and whitish to brownish sputum production. Also complains of nausea. Patient did have hemodialysis yesterday with 2.5 L of ultrafiltration. Again scheduled today. No complaints of chest pain. Shortness of breath is better. Patient has been afebrile. Laboratory data reviewed. 03/02/2025 Patient is lying in the bed awake alert and oriented x 3. She complains of cough and shortness of breath. Patient underwent hemodialysis yesterday and next hemodialysis session tomorrow. No complaints of chest pain. Patient has been afebrile. Repeat chest x-ray showed improvement in pulmonary vascular congestion. Patient is tolerating oral diet. Lab data reviewed. 03/03/2025 Patient is lying in the bed. Awake alert and oriented. Patient states that she was nauseous this morning. Also complains of shortness of breath still. No episodes of vomiting. No fever no chills. Patient is undergoing hemodialysis today. Lab data showed WBC 12.5 hemoglobin 8.5 and platelets 239 sodium 131 potassium 5.7 chloride 93 bicarb is 25 BUN 57 and creatinine 5.45 and blood sugar 207. Phosphorus 5.4. Nephrology is on board. 03/04/2025 Patient is lying in the bed but awake alert and oriented. Complains of left upper extremity swelling. Rates patient is still having bilateral swelling. Scheduled for hemodialysis. Nephrology on board. Patient is also on fluid restriction. Laboratory data showed WBC 8.2 hemoglobin 8.9 and platelets 240 sodium 133 potassium 4.9 chloride 86 bicarbonate 26 BUN 37 creatinine 4.1 and blood sugar 130. Nephrology is on board. 03/05/2025. Patient is resting in the bed. Awake alert and oriented. Still complains of shortness of breath and worsening left upper extremity swelling. Duplex scan is negative for DVT. Patient was seen by vascular surgery recommends compression stockings and Jv wrap to the left upper extremity. Patient is also complaining of left breast swelling and tender. The patient has been afebrile. Laboratory data showed WBC 8.1 hemoglobin 8.6 and platelets 213 sodium 132 potassium 5.9 chloride 97 bicarb is 24 BUN 55 creatinine 4.98 and blood sugar 67. Calcium 9.3 03/06/2025 Patient is lying in the bed. Awake alert and oriented. Still complains of left arm pain and also left breast discomfort with swelling. No fever no chills. No cough or sputum production. Complains of nausea. No gross vomiting. Patient is getting hemodialysis. Laboratory data showed sodium 136 potassium 4.9 chloride 95 bicarb is 28 BUN 39 and creatinine 4.08 and blood sugar 133. Calcium 9.0. 03/07 Patient still complains from some shortness of breath, she still has leg edema She is able to walk. She has good appetite but she is constipated despite being on Colace and MiraLAX No abdominal pain or tenderness She is complaining from left breast pain and tenderness x 1 week. No open wound or abnormal discharge. Ultrasound today showing possible mastoiditis per report. I reviewed the ultrasound by myself We will discharge patient on Augmentin and consult gynecology service Patient still getting hemodialysis for her end-stage renal disease and diastolic CHF with nephrology following closely Left upper extremity and graft is in Arch compression stocking Vascular surgery team evaluated the patient and signed off the case from their perspective 03/08 Patient sugars better controlled after increasing her Lantus and Humalog doses She is still complaining from cough and some chest pain with cough, exertional dyspnea related to her diastolic CHF although it is improving. She is getting hemodialysis today. No significant leg edema She still has left upper extremity pain, she was already evaluated by vascular surgery team and she is getting hemodialysis currently through her graft in the left upper extremity. Patient will require follow-up as an outpatient vascular surgery team She is placed on Augmentin for possible left mastitis. Yesterday her printing services coordinator Dr. Lebron does not think they need to see the patient as she was not taking control pills. He recommended surgical team consult which was placed for further evaluation and recommendation. 03/09 Patient breathing and chest congestion and exertional dyspnea improved with hemodialysis. She still have coughing on Robitussin added today She is still complaining from nausea and pain in her left breast. She is on Augmentin. Surgery team following closely. The recommend to repeat breast ultrasound for further evaluation to see the progress or regress in the treatment She is continued on hemodialysis Patient was asking to be discharged home today. She says she will follow-up with her printing services coordinator Dr. Galarza from [facility] Vascular surgery evaluated the patient for left upper extremities pain and cleared for discharge. Patient needs to follow-up with vascular surgery as an outpatient, she was informed and she agrees 03/10 Patient still complaining from pain in her left breast. Her left breast fullness behind the nipple looks larger and tender. As per report there is also some bloody discharge occasionally from the left nipple. Repeat ultrasound requested yesterday and pending results. We called for the lab to obtain the result She is currently on Augmentin. But because of continued symptoms and on examination the fullness looks larger we are going to consult infectious team. Surgery team also following closely She is complaining from coughing persistently despite giving her cough medicine. She is getting hemodialysis today Her left upper pain controlled No other new complaints will continue close monitoring (All encounter and exam done in the presence of the bedside nurse Becki and after patient gave verbal consent) 03/11 Patient with left mastitis and nodular density below the nipple which is tender and it was enlarging as of yesterday therefore ID team was consulted Antibiotics were changed from Augmentin into IV vancomycin Patient today looks similar, however she is not in distress and eating her diet with no difficulty. No other new complaint Continue with hemodialysis per nephrology team Repeat ultrasound of the breast is done but report still not available Continue with insulin we will decrease her Lantus 14 units up to 15 units twice daily. Also increase her Humalog 8 units up to 12 units with meals but with the treatment of infection she requires less insulin and lowered the dose to 14 units of Lantus again and Humalog to 11 units 03/12 Still has coughing which bothers her no chest pain. No dyspnea at rest Also complains from headache and pain in her left breast Getting through hemodialysis today and 4.5 L will be taken out Sugars controlled. She will lower her Levemir to her previous dose of 14 which is already done but we will lower Humalog from 11 down to her previous dose of 8 units as sugar was low this morning despite lowering insulin dose yesterday. However currently awake alert and eating her breakfast 03/13 Patient still has some tenderness in her left breast area she still on IV vancomycin for possible mastitis Infectious disease and surgery team following closely and recommend biopsy however surgery team recommended to do ductal excisional biopsy with her breast surgeon as an outpatient. She is getting hemodialysis today No other new complaints Objective - Vital Signs Vital signs: Vital Signs Temp 98.6 F 03/13/25 00:44 Pulse 82 03/13/25 06:07 Resp 20 03/13/25 06:07 BP 155/83 03/13/25 00:44 Pulse Ox 97 03/13/25 06:00 FiO2 Intake & Output 03/12/25 03/13/2525 18:59 06:59 18:59 Intake Total 1680 605 Output Total 100 9400 Balance 1580 -8795 Weight 77.9 kg Intake: IV 20 5 Invasive Line 4 20 5 Oral 1660 200 Hemodialysis 400 Output: Urine 100 Hemodialysis 4900 Hemodialysis Net Amount 4500 Other: Voiding Method Toilet Toilet # Voids 1 - Exam GENERAL: The patient is alert and oriented x3, not in any acute distress. Well developed, well nourished. HEENT: Pupils are round and equally reacting to light. EOMI. No scleral icterus. No conjunctival pallor. Normocephalic, atraumatic. No pharyngeal erythema. No thyromegaly. CARDIOVASCULAR: S1 and S2 present. No murmurs, rubs, or gallops. -PULMONARY: Chest is clear to auscultation, no wheezing , bilateral basal crackles. -lwft Breast exam(after patient gave verbal consent and in the presence of bedside nurse Maryan) no erythema or swelling no nipple abnormality. Tender nodule behind the left nipple ABDOMEN: Soft, nontender, nondistended, normoactive bowel sounds. No palpable organomegaly. MUSCULOSKELETAL: No joint swelling or deformity. -EXTREMITIES: No cyanosis, clubbing,. 2+ bilateral pitting leg edema. NEUROLOGICAL: Gross neurological examination did not reveal any focal deficits. SKIN: No rashes. no petechiae. - Labs CBC & Chem 7: 03/10/25 06:41 03/12/25 07:05 Labs: Abnormal Lab Results - Last 24 Hours (Table) 03/12/25 03/12/25 03/13/25 Range/Units 07:05 13:32 05:57 Sodium 133 L (137-145) mmol/L Potassium 5.8 H (3.5-5.1) mmol/L Chloride 97 L (98-107) mmol/L BUN 37 H (7-17) mg/dL Creatinine 4.16 H (0.52-1.04) mg/dL Glucose 131 H (74-99) mg/dL POC Glucose (mg/dL) 170 H 138 H (70-110) mg/dL Assessment and Plan Assessment: acute left mastitis Worsening shortness of breath due to acute diastolic CHF and fluid overload ESRD on hemodialysis 4 times per week M TTS Left upper extremity worsening swelling. Rule out DVT. Venous Doppler was negative for DVT And dialysis graft appears patent, transfer text. Patient cleared by vascular surgery team Hypertension Acute acute on chronic CHF with preserved EF Hyperglycemia with uncontrolled diabetes type 1 Hyperkalemia secondary to CKD History of CVA/TIA with no residual weakness Diabetic gastroparesis and diabetic peripheral neuropathy History of optic neuritis Hypothyroidism Plan: Continue with IV vancomycin per ID team General Surgery team also following for her breast infection but no sign of the case t 03/13 Continue with hemodialysis per nephrology team Vascular surgery team signed off the case Continue with insulin. consult ID team Continue with Lantus 14 units twice daily and Humalog 11 units 3 times daily. At home she was taking 8 units 3 times daily Labs and medication were reviewed.. Continue same treatment. Continue with symptomatic treatment. Resume home medication. Monitor labs and vitals. DVT and GI prophylaxis. Further recommendations as per clinical course of the patient DVT prophylaxis: Subcutaneous heparin GI Prophylaxis: Pepcid Prognosis is guarded
[2025-03-13] MEDS: LIDOCAINE-PRILOCAINE 2.5-2.5% CREAM 5 GM TUBE TOPICAL STA (09:43)
[2025-03-13 11:42] LABS: Glucose,Whole Blood 128 mg/dL (70-110)
--- NOTE | 2025-03-13 11:47 | P.PN ---
Subjective Patient is seen for follow-up for end-stage renal disease. Seen on hemodialysis today with goal UF of about 4.5 L Some improvement in edema noted but patient remains volume overloaded Objective - Vital Signs Vital signs: Vital Signs Temp 97.5 F L 03/13/25 08:35 Pulse 70 03/13/25 08:35 Resp 18 03/13/25 08:35 BP 143/78 03/13/25 08:35 Pulse Ox 100 03/13/25 08:35 FiO2 Intake & Output 03/12/25 03/13/25 03/13/25 18:59 06:59 18:59 Intake Total 1680 605 480 Output Total 100 9400 Balance 1580 -8795 480 Weight 77.9 kg Intake: IV 20 5 Invasive Line 4 20 5 Oral 1660 200 480 Hemodialysis 400 Output: Urine 100 Hemodialysis 4900 Hemodialysis Net Amount 4500 Other: Voiding Method Toilet Toilet Toilet # Voids 1 - Exam Patient is awake, comfortable, no acute distress Abdomen is soft nontender Examination of lower extremities shows edema 1+ bilaterally - Labs CBC & Chem 7: 03/10/25 06:41 03/12/25 07:05 Labs: Abnormal Lab Results - Last 24 Hours (Table) 03/12/25 03/13/25 03/13/25 Range/Units 13:32 05:57 11:38 POC Glucose (mg/dL) 170 H 138 H 128 H (70-110) mg/dL Assessment and Plan Assessment: 1. End-stage renal disease on hemodialysis on Wednesday and Wednesday for volume overload. History of noncompliance with salt and fluid restriction. 2. Volume overload 3. Dyspnea associated with volume overload 4. 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 CKD mineral bone disorder 6. Pericardial effusion during last admission with positive antihistone antibodies, currently off of hydralazine 7. Hypertension with CKD stage V, mostly volume sensitive. 8. Left breast mastitis maintained on antibiotics and warm compresses, being followed by surgery with no plans for intervention. Plan: Repeat hemodialysis in a.m. Continue current antihypertensive regimen
--- NOTE | 2025-03-13 15:15 | P.PN ---
Subjective Progress Note Date: 03/13/25 Principal diagnosis: Reason for follow-up is left mastitis Patient is a 35-year-old female with multiple comorbidities including diabetes mellitus hypertension seizure disorder end-stage renal disease on dialysis presented to hospital with shortness of breath ID consult because of left breast pain concerning for mastitis. On today's evaluation that is 03/13/2025,the patient denies any fever or any chills, patient is breathing comfortably on room air, the patient said complaining of pain to the left breast area about the same no drainage nausea no vomiting and no diarrhea. Vancomycin enema has been 23.3 Objective - Vital Signs Vital signs: Vital Signs Temp 97.5 F L 03/13/25 08:35 Pulse 70 03/13/25 08:35 Resp 18 03/13/25 08:35 BP 143/78 03/13/25 08:35 Pulse Ox 100 03/13/25 08:35 FiO2 Intake & Output 03/12/25 03/13/25 03/13/25 18:59 06:59 18:59 Intake Total 1680 605 480 Output Total 100 9400 Balance 1580 -8795 480 Weight 77.9 kg Intake: IV 20 5 Invasive Line 4 20 5 Oral 1660 200 480 Hemodialysis 400 Output: Urine 100 Hemodialysis 4900 Hemodialysis Net Amount 4500 Other: Voiding Method Toilet Toilet Toilet # Voids 1 - Exam GENERAL DESCRIPTION: Middle-age female lying in bed in no distress RESPIRATORY SYSTEM: Unlabored breathing , decreased breath sounds at bases HEART: S1 S2 regular rate and rhythm , ABDOMEN: Soft , no tenderness EXTREMITIES: No edema feet - Labs CBC & Chem 7: 03/10/25 06:41 03/12/25 07:05 Labs: Abnormal Lab Results - Last 24 Hours (Table) 03/12/25 03/13/25 03/13/25 Range/Units 13:32 05:57 11:38 POC Glucose (mg/dL) 170 H 138 H 128 H (70-110) mg/dL Assessment and Plan (1) Mastitis, left, acute Current Visit: Yes Status: Acute Code(s): N61.0 - MASTITIS WITHOUT ABSCESS SNOMED Code(s): 13141131 Plan: 1patient complaining of pain to the left breast area with some tenderness and currently some drainage concerning for mastitis likely from gram-positive's c ontrol in this patient with a history of end-stage renal disease will need to cover for more resistant pathogen such as MRSA 2- breast ultrasound did show skin thickening and left axilla lymphadenopathy will benefit from biopsy surgery recommend the patient to follow-up with her own breast surgeon Sooner than later for biopsy to confirm her underlying condition may continue vancomycin at this point Dictation was produced using [employer] dictation software. please excuse any grammatical, word or spelling errors. Time with Patient: Less than 30
[2025-03-13 16:45] LABS: Glucose,Whole Blood 72 mg/dL (70-110)
[2025-03-13 20:43] LABS: Glucose,Whole Blood 84 mg/dL (70-110)
[2025-03-14 06:17] LABS: Glucose,Whole Blood 79 mg/dL (70-110)
[2025-03-14 07:25] LABS: Basophils # (A) 0.11 10*3/uL (0.00-0.10); Basophils % (A) 1.2 %; Eosinophils # (A) 0.88 10*3/uL (0.04-0.35); Eosinophils % (A) 9.9 %; HCT 27.7 % (37.2-46.3); HGB 8.8 g/dL (12.0-15.0); Lymphocytes % (A) 10.1 %; MCH 31.8 pg (27.0-32.0); MCHC 31.8 g/dL (32.0-37.0); Mean Platelet Volume 10.9 fL (9.5-12.2); Monocytes # (A) 0.88 10*3/uL (0.20-1.00); Monocytes % (A) 9.9 %; Neutrophils % (A) 68.3 %; Platelet Count 188 10*3/uL (140-440); RBC 2.77 10*6/uL (4.10-5.20); RDW 16.5 % (11.5-14.5); WBC 8.92 10*3/uL (4.50-10.00)
[2025-03-14 07:41] LABS: ALT 35 U/L (4-34); AST 24 U/L (14-36); African American GFR (CKD) 19 (>60 ml/min/1.73 sqM); Albumin 3.5 g/dL (3.5-5.0); Alkaline Phosphatase 157 U/L (38-126); Anion Gap 11 mmol/L; Blood Urea Nitrogen 34 mg/dL (7-17); C Reactive Protein 1.3 mg/dL (<1.0); Calcium 9.6 mg/dL (8.4-10.2); Carbon Dioxide 29 mmol/L (22-30); Chloride 94 mmol/L (98-107); Glucose 65 mg/dL (74-99); Non-African American GFR(CKD) 16 (>60 ml/min/1.73 sqM); Potassium 4.8 mmol/L (3.5-5.1); Sodium 134 mmol/L (137-145); Total Bilirubin 0.7 mg/dL (0.2-1.3); Total Protein 5.9 g/dL (6.3-8.2)
[2025-03-14 07:43] LABS: Vancomycin,Random 15.5 ug/mL
[2025-03-14] MEDS: IPRATROPIUM-ALBUTEROL 3 ML NEB INHALATION STA (08:37)
[2025-03-14] MEDS: BENZONATATE 100 MG CAP PO SCH (08:39)
--- NOTE | 2025-03-14 08:41 | XR ---
EXAMINATION TYPE: XR chest 1V DATE OF EXAM: 03/14/2025 COMPARISON: 03/02/2025 CLINICAL INDICATION: Female, 35 years old with history of cough; TECHNIQUE: Single frontal view of the chest is obtained. FINDINGS: Heart remains mildly enlarged. Diffuse interstitial opacities persist and may have slightl y worsened in the interval. No pleural effusion. IMPRESSION: 1. Similar mild cardiomegaly. 2. Diffuse interstitial opacities persist and may have slightly worsened in the interval. Consider se quela of CHF versus atypical pneumonias or interstitial pneumonitis. [facility], Workstation: [facility], 03/14/2025 8:39 AM
--- NOTE | 2025-03-14 10:43 | P.PN ---
Subjective Patient is a 35-year-old female with a past medical history of ESRD on hemodialysis 4 times a week, M TTS with right subclavian permacath awaiting p marcela and liver transplant , hypertension, diabetes type 2 insulin-dependent, hypothyroidism, diabetic neuropathy, gastroparesis,, anxiety/depression, currently everyday smoker and history of marijuana and methamphetamine use. Patient was recently discharged from the hospital was admitted due to hype rtensive emergency and pulmonary edema and fluid overload. Patient presents to ER with complaints of worsening shortness of breath since yesterday. Last hemodialysis was on Wednesday. Also complains of cough and leg swelling. Complains of nausea. No episodes of vomiting. Denies any chest pain or palpitations. No fever no chills. Patient states that she has been taking her insulin regimen as recommended. Chest x-ray showed cardiomegaly with patchy interstitial prominence suggesting CHF exacerbation. Correlate clinically. EKG showed sinus rhythm Laboratory data showed WBC 11.2 hemoglobin 10.0 and platelets 259 sodium 125 potassium 5.2 with slight hemolysis, chloride 82 BUN 74 creatinine 4.96 and blood sugar 612 anion gap 18 and bicarb is 25 lactic acid 2.1 AST 50 ALT 112 alk phos 211 and proBNP 81,109, acetone negative 02/27/2025 Patient is lying in the bed. Awake alert and oriented x 3. No complaints of chest pain. Shortness of breath is improving. Complains of nausea. No cough or sputum production. Patient underwent hemodialysis yesterday and is also scheduled today. No fever no chills. Blood sugar is controlled. Laboratory data showed WBC 9.6 hemoglobin 9.6 and platelets 228 sodium 129 potassium 4.7 chloride 90 bicarb is 26 BUN 55 and creatinine 4.13 and blood s ugar 189 and calcium 9.1. Nephrology is on board. 02/28/2025 Patient is resting in the bed. Awake alert and oriented x 3. No complaints of chest pain. Shortness of breath is much improved. Able to tolerate oral diet. No cough or sputum production. Blood pressure is also improved. Patient is requiring 2 L oxygen via nasal cannula. CBG went down to 49 around 1130 which is improved now. Hemodialysis tomorrow. 03/01/2025 Patient is lying in the bed. Awake alert and oriented x 3. Complains of significant cough and whitish to brownish sputum production. Also complains of nausea. Patient did have hemodialysis yesterday with 2.5 L of ultrafiltration. Again scheduled today. No complaints of chest pain. Shortness of breath is better. Patient has been afebrile. Laboratory data reviewed. 03/02/2025 Patient is lying in the bed awake alert and oriented x 3. She complains of cough and shortness of breath. Patient underwent hemodialysis yesterday and next hemodialysis session tomorrow. No complaints of chest pain. Patient has been afebrile. Repeat chest x-ray showed improvement in pulmonary vascular congestion. Patient is tolerating oral diet. Lab data reviewed. 03/03/2025 Patient is lying in the bed. Awake alert and oriented. Patient states that she was nauseous this morning. Also complains of shortness of breath still. No episodes of vomiting. No fever no chills. Patient is undergoing hemodialysis today. Lab data showed WBC 12.5 hemoglobin 8.5 and platelets 239 sodium 131 potassium 5.7 chloride 93 bicarb is 25 BUN 57 and creatinine 5.45 and blood sugar 207. Phosphorus 5.4. Nephrology is on board. 03/04/2025 Patient is lying in the bed but awake alert and oriented. Complains of left upper extremity swelling. Rates patient is still having bilateral swelling. Scheduled for hemodialysis. Nephrology on board. Patient is also on fluid restriction. Laboratory data showed WBC 8.2 hemoglobin 8.9 and platelets 240 sodium 133 potassium 4.9 chloride 86 bicarbonate 26 BUN 37 creatinine 4.1 and blood sugar 130. Nephrology is on board. 03/05/2025. Patient is resting in the bed. Awake alert and oriented. Still complains of shortness of breath and worsening left upper extremity swelling. Duplex scan is negative for DVT. Patient was seen by vascular surgery recommends compression stockings and Jv wrap to the left upper extremity. Patient is also complaining of left breast swelling and tender. The patient has been afebrile. Laboratory data showed WBC 8.1 hemoglobin 8.6 and platelets 213 sodium 132 potassium 5.9 chloride 97 bicarb is 24 BUN 55 creatinine 4.98 and blood sugar 67. Calcium 9.3 03/06/2025 Patient is lying in the bed. Awake alert and oriented. Still complains of left arm pain and also left breast discomfort with swelling. No fever no chills. No cough or sputum production. Complains of nausea. No gross vomiting. Patient is getting hemodialysis. Laboratory data showed sodium 136 potassium 4.9 chloride 95 bicarb is 28 BUN 39 and creatinine 4.08 and blood sugar 133. Calcium 9.0. 03/07 Patient still complains from some shortness of breath, she still has leg edema She is able to walk. She has good appetite but she is constipated despite being on Colace and MiraLAX No abdominal pain or tenderness She is complaining from left breast pain and tenderness x 1 week. No open wound or abnormal discharge. Ultrasound today showing possible mastoiditis per report. I reviewed the ultrasound by myself We will discharge patient on Augmentin and consult gynecology service Patient still getting hemodialysis for her end-stage renal disease and diastolic CHF with nephrology following closely Left upper extremity and graft is in Arch compression stocking Vascular surgery team evaluated the patient and signed off the case from their perspective 03/08 Patient sugars better controlled after increasing her Lantus and Humalog doses She is still complaining from cough and some chest pain with cough, exertional dyspnea related to her diastolic CHF although it is improving. She is getting hemodialysis today. No significant leg edema She still has left upper extremity pain, she was already evaluated by vascular surgery team and she is getting hemodialysis currently through her graft in the left upper extremity. Patient will require follow-up as an outpatient vascular surgery team She is placed on Augmentin for possible left mastitis. Yesterday her life care planner Dr. Lebron does not think they need to see the patient as she was not taking control pills. He recommended surgical team consult which was placed for further evaluation and recommendation. 03/09 Patient breathing and chest congestion and exertional dyspnea improved with hemodialysis. She still have coughing on Robitussin added today She is still complaining from nausea and pain in her left breast. She is on Augmentin. Surgery team following closely. The recommend to repeat breast ultrasound for further evaluation to see the progress or regress in the treatment She is continued on hemodialysis Patient was asking to be discharged home today. She says she will follow-up with her life care planner Dr. Galar[facility] Vascular surgery evaluated the patient for left upper extremities pain and cleared for discharge. Patient needs to follow-up with vascular surgery as an outpatient, she was informed and she agrees 03/10 Patient still complaining from pain in her left breast. Her left breast fullness behind the nipple looks larger and tender. As per report there is also some bloody discharge occasionally from the left nipple. Repeat ultrasound requested yesterday and pending results. We called for the lab to obtain the result She is currently on Augmentin. But because of continued symptoms and on examination the fullness looks larger we are going to consult infectious team. Surgery team also following closely She is complaining from coughing persistently despite giving her cough medicine. She is getting hemodialysis today Her left upper pain controlled No other new complaints will continue close monitoring (All encounter and exam done in the presence of the bedside nurse Becki and after patient gave verbal consent) 03/11 Patient with left mastitis and nodular density below the nipple which is tender and it was enlarging as of yesterday therefore ID team was consulted Antibiotics were changed from Augmentin into IV vancomycin Patient today looks similar, however she is not in distress and eating her diet with no difficulty. No other new complaint Continue with hemodialysis per nephrology team Repeat ultrasound of the breast is done but report still not available Continue with insulin we will decrease her Lantus 14 units up to 15 units twice daily. Also increase her Humalog 8 units up to 12 units with meals but with the treatment of infection she requires less insulin and lowered the dose to 14 units of Lantus again and Humalog to 11 units 03/12 Still has coughing which bothers her no chest pain. No dyspnea at rest Also complains from headache and pain in her left breast Getting through hemodialysis today and 4.5 L will be taken out Sugars controlled. She will lower her Levemir to her previous dose of 14 which is already done but we will lower Humalog from 11 down to her previous dose of 8 units as sugar was low this morning despite lowering insulin dose yesterday. However currently awake alert and eating her breakfast 03/13 Patient still has some tenderness in her left breast area she still on IV vancomycin for possible mastitis Infectious disease and surgery team following closely and recommend biopsy however surgery team recommended to do ductal excisional biopsy with her breast surgeon as an outpatient. She is getting hemodialysis today No other new complaints 03/14 Patient complaining from coughing today and exertional dyspnea. We changed her Robitussin and Tessalon She is satting well on room air Repeat chest x-ray showing bilateral prominence, slightly worse than before per report I reviewed the chest x-ray by myself and agree with these findings. Most likely secondary to fluid overload. Patient ultrasound of the left breast from 03/09 report Came back showing thickening of the whole breast with echogenic foci seen throughout. No definite masses or fluid collection seen. Findings suggest mastitis. Also there is prominent left axillary lymph node measuring 1.6 x 1.6 x 3.3 cm most likely reactive. Surgery team they recommend biopsy to be done with her on surgeon. Sugar is low normal therefore we will lower insulin dose routine of Lantus and to 13 units twice daily and keep Humalog 8 units with meals Objective - Vital Signs Vital signs: Vital Signs Temp 97.9 F 03/14/25 08:00 Pulse 69 03/14/25 08:57 Resp 16 03/14/25 08:00 BP 142/82 03/14/25 08:00 Pulse Ox 100 03/14/25 08:42 FiO2 24 03/14/25 08:42 Intake & Output 03/13/25 03/14/25 03/14/25 18:59 06:59 18:59 Intake Total 1600 10 240 Output Total 9400 Balance -7800 10 240 Weight 77.7 kg Intake: IV 10 0.9 10 Oral 1200 240 Hemodialysis 400 Output: Urine 0 Hemodialysis 4900 Hemodialysis Net Amount 4500 Other: Voiding Method Toilet Toilet Toilet # Bowel Movements 0 - Exam GENERAL: The patient is alert and oriented x3, not in any acute distress. Well developed, well nourished. HEENT: Pupils are round and equally reacting to light. EOMI. No scleral icterus. No conjunctival pallor. Normocephalic, atraumatic. No pharyngeal erythema. No thyromegaly. CARDIOVASCULAR: S1 and S2 present. No murmurs, rubs, or gallops. -PULMONARY: Chest is clear to auscultation, no wheezing , bilateral basal crackles. -lwft Breast exam(after patient gave verbal consent and in the presence of bedside nurse Maryan) no erythema or swelling no nipple abnormality. Tender nodule behind the left nipple ABDOMEN: Soft, nontender, nondistended, normoactive bowel sounds. No palpable organomegaly. MUSCULOSKELETAL: No joint swelling or deformity. -EXTREMITIES: No cyanosis, clubbing,. 2+ bilateral pitting leg edema. NEUROLOGICAL: Gross neurological examination did not reveal any focal deficits. SKIN: No rashes. no petechiae. - Labs CBC & Chem 7: 03/14/25 06:42 03/14/25 06:42 Labs: Abnormal Lab Results - Last 24 Hours (Table) 03/13/25 03/14/25 03/14/25 Range/Units 11:38 06:42 06:42 RBC 2.77 L (4.10-5.20) 10*6/uL Hgb 8.8 L (12.0-15.0) g/dL Hct 27.7 L (37.2-46.3) % MCV 100.0 H (80.0-97.0) fL MCHC 31.8 L (32.0-37.0) g/dL Immature Gran # 0.05 H (0.00-0.04) 10*3/uL Eosinophils # 0.88 H (0.04-0.35) 10*3/uL Basophils # 0.11 H (0.00-0.10) 10*3/uL Sodium 134 L (137-145) mmol/L Chloride 94 L (98-107) mmol/L BUN 34 H (7-17) mg/dL Creatinine 3.51 H (0.52-1.04) mg/dL Glucose 65 L (74-99) mg/dL POC Glucose (mg/dL) 128 H (70-110) mg/dL ALT 35 H (4-34) U/L Alkaline Phosphatase 157 H (38-126) U/L C-Reactive Protein 1.3 H (<1.0) mg/dL Total Protein 5.9 L (6.3-8.2) g/dL Assessment and Plan Assessment: acute left mastitis Worsening shortness of breath due to acute diastolic CHF and fluid overload ESRD on hemodialysis 4 times per week M TTS Left upper extremity worsening swelling. Rule out DVT. Venous Doppler was negative for DVT And dialysis graft appears patent, transfer text. Patient cleared by vascular surgery team Hypertension Acute acute on chronic CHF with preserved EF Hyperglycemia with uncontrolled diabetes type 1 Hyperkalemia secondary to CKD History of CVA/TIA with no residual weakness Diabetic gastroparesis and diabetic peripheral neuropathy History of optic neuritis Hypothyroidism Plan: Continue with IV vancomycin per ID team General Surgery team also following for her breast infection, they recommend patient to breast biopsy with her surgeon as an outpatient Continue with hemodialysis per nephrology team Vascular surgery team signed off the case Continue with insulin. consult ID team Continue with Lantus 13 units twice daily and Humalog 11 units 3 times daily. At home she was taking 8 units 3 times daily Labs and medication were reviewed.. Continue same treatment. Continue with symptomatic treatment. Resume home medication. Monitor labs and vitals. DVT and GI prophylaxis. Further recommendations as per clinical course of the patient DVT prophylaxis: Subcutaneous heparin GI Prophylaxis: Pepcid Prognosis is guarded
[2025-03-14 11:57] LABS: Glucose,Whole Blood 77 mg/dL (70-110)
--- NOTE | 2025-03-14 12:10 | P.PN ---
Subjective Patient is seen for follow-up for end-stage renal disease. Seen on hemodialysis today with goal UF of about 4.5 L Some improvement in edema noted but patient remains volume overloaded. Patient is noted to have increased salt intake. She is trying to limit her fluids. Discussed with her in detail regarding importance of salt restriction. Objective - Vital Signs Vital signs: Vital Signs Temp 97.9 F 03/14/25 08:00 Pulse 69 03/14/25 08:57 Resp 16 03/14/25 08:00 BP 142/82 03/14/25 08:00 Pulse Ox 100 03/14/25 08:42 FiO2 24 03/14/25 08:42 Intake & Output 03/13/25 03/14/25 03/14/25 18:59 06:59 18:59 Intake Total 1600 10 240 Output Total 9400 Balance -7800 10 240 Weight 77.7 kg Intake: IV 10 0.9 10 Oral 1200 240 Hemodialysis 400 Output: Urine 0 Hemodialysis 4900 Hemodialysis Net Amount 4500 Other: Voiding Method Toilet Toilet Toilet # Bowel Movements 0 - Exam Patient is awake, comfortable, no acute distress Examination of the heart S1 and S2 Examination of the lungs bilateral breath sounds are heard Abdomen is soft nontender Examination of lower extremities shows edema 1+ bilaterally - Labs CBC & Chem 7: 03/14/25 06:42 03/14/25 06:42 Labs: Abnormal Lab Results - Last 24 Hours (Table) 03/14/25 03/14/25 Range/Units 06:42 06:42 RBC 2.77 L (4.10-5.20) 10*6/uL Hgb 8.8 L (12.0-15.0) g/dL Hct 27.7 L (37.2-46.3) % MCV 100.0 H (80.0-97.0) fL MCHC 31.8 L (32.0-37.0) g/dL Immature Gran # 0.05 H (0.00-0.04) 10*3/uL Eosinophils # 0.88 H (0.04-0.35) 10*3/uL Basophils # 0.11 H (0.00-0.10) 10*3/uL Sodium 134 L (137-145) mmol/L Chloride 94 L (98-107) mmol/L BUN 34 H (7-17) mg/dL Creatinine 3.51 H (0.52-1.04) mg/dL Glucose 65 L (74-99) mg/dL ALT 35 H (4-34) U/L Alkaline Phosphatase 157 H (38-126) U/L C-Reactive Protein 1.3 H (<1.0) mg/dL Total Protein 5.9 L (6.3-8.2) g/dL Assessment and Plan Assessment: 1. End-stage renal disease on hemodialysis on Wednesday and Wednesday for volume overload. History of noncompliance with salt and fluid restriction. 2. Volume overload 3. Dyspnea associated with volume overload 4. 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 CKD mineral bone disorder 6. Pericardial effusion during last admission with positive antihistone ant ibodies, currently off of hydralazine 7. Hypertension with CKD stage V, mostly volume sensitive. 8. Left breast mastitis maintained on antibiotics and warm compresses, being followed by surgery with no plans for intervention. Plan: Repeat hemodialysis in a.m. Discussed importance of salt restriction and diet. Avoid chips Continue current antihypertensive regimen
[2025-03-14 13:00] VITALS: BMI 26.0
[2025-03-14] MEDS: VANCOMYCIN 1,500 MG in SODIUM CHLORIDE 0.9% 500 ML 500 ML IVPB ONE (14:54)
[2025-03-14 16:55] LABS: Glucose,Whole Blood 264 mg/dL (70-110)
--- NOTE | 2025-03-14 17:17 | P.PN ---
Subjective Progress Note Date: 03/14/25 Principal diagnosis: Reason for follow-up is left mastitis Patient is a 35-year-old female with multiple comorbidities including diabetes mellitus hypertension seizure disorder end-stage renal disease on dialysis presented to hospital with shortness of breath ID consult because of left breast pain concerning for mastitis. On today's evaluation that is 03/14/2025,the patient remains to be afebrile, patient is on 1 L nasal cannula supplemental oxygen and denies any worsening shortness of breath or cough.Patient denies having any nausea or vomiting, no abdominal pain and no diarrhea has been reported. Patient white count is 8.92, creatinine is 3.5 point Objective - Vital Signs Vital signs: Vital Signs Temp 98 F 03/14/25 14:00 Pulse 79 03/14/25 14:00 Resp 16 03/14/25 14:00 BP 166/86 03/14/25 14:00 Pulse Ox 95 03/14/25 14:00 FiO2 24 03/14/25 08:42 Intake & Output 03/13/25 03/14/25 03/14/25 18:59 06:59 18:59 Intake Total 1600 10 880 Output Total 9400 9400 Balance -7800 10 -8520 Weight 77.7 kg 77.7 kg Intake: IV 10 0.9 10 Oral 1200 480 Hemodialysis 400 400 Output: Urine 0 Hemodialysis 4900 4900 Hemodialysis Net Amount 4500 4500 Other: Voiding Method Toilet Toilet Toilet # Bowel Movements 0 - Exam GENERAL DESCRIPTION: Middle-age female lying in bed in no distress RESPIRATORY SYSTEM: Unlabored breathing , decreased breath sounds at bases HEART: S1 S2 regular rate and rhythm , ABDOMEN: Soft , no tenderness EXTREMITIES: No edema feet - Labs CBC & Chem 7: 03/14/25 06:42 03/14/25 06:42 Labs: Abnormal Lab Results - Last 24 Hours (Table) 03/14/25 03/14/25 03/14/25 Range/Units 06:42 06:42 16:40 RBC 2.77 L (4.10-5.20) 10*6/uL Hgb 8.8 L (12.0-15.0) g/dL Hct 27.7 L (37.2-46.3) % MCV 100.0 H (80.0-97.0) fL MCHC 31.8 L (32.0-37.0) g/dL Immature Gran # 0.05 H (0.00-0.04) 10*3/uL Eosinophils # 0.88 H (0.04-0.35) 10*3/uL Basophils # 0.11 H (0.00-0.10) 10*3/uL Sodium 134 L (137-145) mmol/L Chloride 94 L (98-107) mmol/L BUN 34 H (7-17) mg/dL Creatinine 3.51 H (0.52-1.04) mg/dL Glucose 65 L (74-99) mg/dL POC Glucose (mg/dL) 264 H (70-110) mg/dL ALT 35 H (4-34) U/L Alkaline Phosphatase 157 H (38-126) U/L C-Reactive Protein 1.3 H (<1.0) mg/dL Total Protein 5.9 L (6.3-8.2) g/dL Assessment and Plan (1) Mastitis, left, acute Current Visit: Yes Status: Acute Code(s): N61.0 - MASTITIS WITHOUT ABSCESS SNOMED Code(s): 62578348 Plan: 1patient complaining of pain to the left breast area with some tenderness and currently some drainage concerning for mastitis likely from gram-positive's control in this patient with a history of end-stage renal disease will need to cover for more resistant pathogen such as MRSA 2- breast ultrasound did show skin thickening and left axilla lymphadenopathy will benefit from biopsy surgery recommend the patient to follow-up with her own breast surgeon Sooner than later for biopsy to confirm her underlying condition 3currently on vancomycin can switched over to oral Doxy or Zyvox on discharge Dictation was produced using [employer] software. please excuse any grammatical, word or spelling errors. Time with Patient: Less than 30
[2025-03-14 20:29] LABS: Glucose,Whole Blood 303 mg/dL (70-110)
[2025-03-14] MEDS: INSULIN GLARGINE (LANTUS) 100 UNIT/ML SYR SQ SCH (21:44)
[2025-03-15 06:16] LABS: Glucose,Whole Blood 236 mg/dL (70-110)
[2025-03-15 11:41] LABS: Glucose,Whole Blood 178 mg/dL (70-110)
--- NOTE | 2025-03-15 12:18 | P.PN ---
Subjective Patient is seen for follow-up for end-stage renal disease. Seen on hemodialysis today with goal UF of about 4.5 L Some improvement in edema noted but patient remains volume overloaded. Patient is noted to have increased salt intake. She is trying to limit her fluids. Discussed with her in detail regarding importance of salt restriction. Objective - Vital Signs Vital signs: Vital Signs Temp 97.9 F 03/15/25 07:14 Pulse 69 03/15/25 07:14 Resp 17 03/15/25 08:00 BP 167/80 03/15/25 07:14 Pulse Ox 99 03/15/25 07:14 FiO2 24 03/14/25 08:42 Intake & Output 03/14/25 03/15/25 03/15/25 18:59 06:59 18:59 Intake Total 1970 810 Output Total 9400 Balance -7430 810 Weight 77.7 kg 76.5 kg Intake: Oral 1570 810 Hemodialysis 400 Output: Hemodialysis 4900 Hemodialysis Net Amount 4500 Other: Voiding Method Toilet Toilet Toilet # Voids 3 1 - Exam Patient is awake, comfortable, no acute distress Alert oriented x 3 AV graft is functioning well Examination of lower extremities shows edema 2+ bilaterally - Labs CBC & Chem 7: 03/14/25 06:42 03/14/25 06:42 Labs: Abnormal Lab Results - Last 24 Hours (Table) 03/14/25 03/14/25 03/15/25 Range/Units 16:40 20:28 06:13 POC Glucose (mg/dL) 264 H 303 H 236 H (70-110) mg/dL 03/15/25 Range/Units 11:40 POC Glucose (mg/dL) 178 H (70-110) mg/dL Assessment and Plan Assessment: 1. End-stage renal disease on hemodialysis on Wednesday and Wednesday for volume overload. History of noncompliance with salt and fluid restriction. 2. Volume overload 3. Dyspnea associated with volume overload 4. 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 CKD mineral bone disorder 6. Pericardial effusion during last admission with positive antihistone antibod ies, currently off of hydralazine 7. Hypertension with CKD stage V, mostly volume sensitive. 8. Left breast mastitis maintained on antibiotics and warm compresses, being followed by surgery with no plans for intervention. Plan: Add dietary restrictions with low salt and fluid restriction along with renal diet Repeat hemodialysis in a.m. Discussed importance of salt restriction and diet. Avoid chips Continue current antihypertensive regimen
--- NOTE | 2025-03-15 16:16 | P.PN ---
Subjective Patient is a 35-year-old female with a past medical history of ESRD on hemodialysis 4 times a week, M TTS with right subclavian permacath awaiting p marcela and liver transplant , hypertension, diabetes type 2 insulin-dependent, hypothyroidism, diabetic neuropathy, gastroparesis,, anxiety/depression, currently everyday smoker and history of marijuana and methamphetamine use. Patient was recently discharged from the hospital was admitted due to hype rtensive emergency and pulmonary edema and fluid overload. Patient presents to ER with complaints of worsening shortness of breath since yesterday. Last hemodialysis was on Wednesday. Also complains of cough and leg swelling. Complains of nausea. No episodes of vomiting. Denies any chest pain or palpitations. No fever no chills. Patient states that she has been taking her insulin regimen as recommended. Chest x-ray showed cardiomegaly with patchy interstitial prominence suggesting CHF exacerbation. Correlate clinically. EKG showed sinus rhythm Laboratory data showed WBC 11.2 hemoglobin 10.0 and platelets 259 sodium 125 potassium 5.2 with slight hemolysis, chloride 82 BUN 74 creatinine 4.96 and blood sugar 612 anion gap 18 and bicarb is 25 lactic acid 2.1 AST 50 ALT 112 alk phos 211 and proBNP 81,109, acetone negative 02/27/2025 Patient is lying in the bed. Awake alert and oriented x 3. No complaints of chest pain. Shortness of breath is improving. Complains of nausea. No cough or sputum production. Patient underwent hemodialysis yesterday and is also scheduled today. No fever no chills. Blood sugar is controlled. Laboratory data showed WBC 9.6 hemoglobin 9.6 and platelets 228 sodium 129 potassium 4.7 chloride 90 bicarb is 26 BUN 55 and creatinine 4.13 and blood s ugar 189 and calcium 9.1. Nephrology is on board. 02/28/2025 Patient is resting in the bed. Awake alert and oriented x 3. No complaints of chest pain. Shortness of breath is much improved. Able to tolerate oral diet. No cough or sputum production. Blood pressure is also improved. Patient is requiring 2 L oxygen via nasal cannula. CBG went down to 49 around 1130 which is improved now. Hemodialysis tomorrow. 03/01/2025 Patient is lying in the bed. Awake alert and oriented x 3. Complains of significant cough and whitish to brownish sputum production. Also complains of nausea. Patient did have hemodialysis yesterday with 2.5 L of ultrafiltration. Again scheduled today. No complaints of chest pain. Shortness of breath is better. Patient has been afebrile. Laboratory data reviewed. 03/02/2025 Patient is lying in the bed awake alert and oriented x 3. She complains of cough and shortness of breath. Patient underwent hemodialysis yesterday and next hemodialysis session tomorrow. No complaints of chest pain. Patient has been afebrile. Repeat chest x-ray showed improvement in pulmonary vascular congestion. Patient is tolerating oral diet. Lab data reviewed. 03/03/2025 Patient is lying in the bed. Awake alert and oriented. Patient states that she was nauseous this morning. Also complains of shortness of breath still. No episodes of vomiting. No fever no chills. Patient is undergoing hemodialysis today. Lab data showed WBC 12.5 hemoglobin 8.5 and platelets 239 sodium 131 potassium 5.7 chloride 93 bicarb is 25 BUN 57 and creatinine 5.45 and blood sugar 207. Phosphorus 5.4. Nephrology is on board. 03/04/2025 Patient is lying in the bed but awake alert and oriented. Complains of left upper extremity swelling. Rates patient is still having bilateral swelling. Scheduled for hemodialysis. Nephrology on board. Patient is also on fluid restriction. Laboratory data showed WBC 8.2 hemoglobin 8.9 and platelets 240 sodium 133 potassium 4.9 chloride 86 bicarbonate 26 BUN 37 creatinine 4.1 and blood sugar 130. Nephrology is on board. 03/05/2025. Patient is resting in the bed. Awake alert and oriented. Still complains of shortness of breath and worsening left upper extremity swelling. Duplex scan is negative for DVT. Patient was seen by vascular surgery recommends compression stockings and Jv wrap to the left upper extremity. Patient is also complaining of left breast swelling and tender. The patient has been afebrile. Laboratory data showed WBC 8.1 hemoglobin 8.6 and platelets 213 sodium 132 potassium 5.9 chloride 97 bicarb is 24 BUN 55 creatinine 4.98 and blood sugar 67. Calcium 9.3 03/06/2025 Patient is lying in the bed. Awake alert and oriented. Still complains of left arm pain and also left breast discomfort with swelling. No fever no chills. No cough or sputum production. Complains of nausea. No gross vomiting. Patient is getting hemodialysis. Laboratory data showed sodium 136 potassium 4.9 chloride 95 bicarb is 28 BUN 39 and creatinine 4.08 and blood sugar 133. Calcium 9.0. 03/07 Patient still complains from some shortness of breath, she still has leg edema She is able to walk. She has good appetite but she is constipated despite being on Colace and MiraLAX No abdominal pain or tenderness She is complaining from left breast pain and tenderness x 1 week. No open wound or abnormal discharge. Ultrasound today showing possible mastoiditis per report. I reviewed the ultrasound by myself We will discharge patient on Augmentin and consult gynecology service Patient still getting hemodialysis for her end-stage renal disease and diastolic CHF with nephrology following closely Left upper extremity and graft is in Arch compression stocking Vascular surgery team evaluated the patient and signed off the case from their perspective 03/08 Patient sugars better controlled after increasing her Lantus and Humalog doses She is still complaining from cough and some chest pain with cough, exertional dyspnea related to her diastolic CHF although it is improving. She is getting hemodialysis today. No significant leg edema She still has left upper extremity pain, she was already evaluated by vascular surgery team and she is getting hemodialysis currently through her graft in the left upper extremity. Patient will require follow-up as an outpatient vascular surgery team She is placed on Augmentin for possible left mastitis. Yesterday her hand stone polisher Dr. Lebron does not think they need to see the patient as she was not taking control pills. He recommended surgical team consult which was placed for further evaluation and recommendation. 03/09 Patient breathing and chest congestion and exertional dyspnea improved with hemodialysis. She still have coughing on Robitussin added today She is still complaining from nausea and pain in her left breast. She is on Augmentin. Surgery team following closely. The recommend to repeat breast ultrasound for further evaluation to see the progress or regress in the treatment She is continued on hemodialysis Patient was asking to be discharged home today. She says she will follow-up with her hand stone polisher Dr. Galar[facility] Vascular surgery evaluated the patient for left upper extremities pain and cleared for discharge. Patient needs to follow-up with vascular surgery as an outpatient, she was informed and she agrees 03/10 Patient still complaining from pain in her left breast. Her left breast fullness behind the nipple looks larger and tender. As per report there is also some bloody discharge occasionally from the left nipple. Repeat ultrasound requested yesterday and pending results. We called for the lab to obtain the result She is currently on Augmentin. But because of continued symptoms and on examination the fullness looks larger we are going to consult infectious team. Surgery team also following closely She is complaining from coughing persistently despite giving her cough medicine. She is getting hemodialysis today Her left upper pain controlled No other new complaints will continue close monitoring (All encounter and exam done in the presence of the bedside nurse Becki and after patient gave verbal consent) 03/11 Patient with left mastitis and nodular density below the nipple which is tender and it was enlarging as of yesterday therefore ID team was consulted Antibiotics were changed from Augmentin into IV vancomycin Patient today looks similar, however she is not in distress and eating her diet with no difficulty. No other new complaint Continue with hemodialysis per nephrology team Repeat ultrasound of the breast is done but report still not available Continue with insulin we will decrease her Lantus 14 units up to 15 units twice daily. Also increase her Humalog 8 units up to 12 units with meals but with the treatment of infection she requires less insulin and lowered the dose to 14 units of Lantus again and Humalog to 11 units 03/12 Still has coughing which bothers her no chest pain. No dyspnea at rest Also complains from headache and pain in her left breast Getting through hemodialysis today and 4.5 L will be taken out Sugars controlled. She will lower her Levemir to her previous dose of 14 which is already done but we will lower Humalog from 11 down to her previous dose of 8 units as sugar was low this morning despite lowering insulin dose yesterday. However currently awake alert and eating her breakfast 03/13 Patient still has some tenderness in her left breast area she still on IV vancomycin for possible mastitis Infectious disease and surgery team following closely and recommend biopsy however surgery team recommended to do ductal excisional biopsy with her breast surgeon as an outpatient. She is getting hemodialysis today No other new complaints 03/14 Patient complaining from coughing today and exertional dyspnea. We changed her Robitussin and Tessalon She is satting well on room air Repeat chest x-ray showing bilateral prominence, slightly worse than before per report I reviewed the chest x-ray by myself and agree with these findings. Most likely secondary to fluid overload. Patient ultrasound of the left breast from 03/09 report Came back showing thickening of the whole breast with echogenic foci seen throughout. No definite masses or fluid collection seen. Findings suggest mastitis. Also there is prominent left axillary lymph node measuring 1.6 x 1.6 x 3.3 cm most likely reactive. Surgery team they recommend biopsy to be done with her on surgeon. Sugar is low normal therefore we will lower insulin dose routine of Lantus and to 13 units twice daily and keep Humalog 8 units with meals 03/15 Patient still have shortness of breath and coughing, changed her cough medicine to Tessalon. She is getting hemodialysis today and they can move more than the maximum about 3.5 L She still complains from pain in her left breast and she remains on IV antibiotics. I discussed with the patient about the importance of outpatient follow-up with her breast surgeon for biopsy and mammogram and she states she will consider it, Objective - Vital Signs Vital signs: Vital Signs Temp 98 F 03/15/25 13:40 Pulse 72 03/15/25 13:40 Resp 16 03/15/25 13:40 BP 162/91 03/15/25 13:40 Pulse Ox 99 03/15/25 07:14 FiO2 24 03/14/25 08:42 Intake & Output 03/14/25 03/15/25 03/15/25 18:59 06:59 18:59 Intake Total 1970 810 500 Output Total 9400 9500 Balance -7430 810 -9000 Weight 77.7 kg 76.5 kg Intake: Oral 1570 810 Hemodialysis 400 500 Output: Hemodialysis 4900 5000 Hemodialysis Net Amount 4500 4500 Other: Voiding Method Toilet Toilet Toilet # Voids 3 1 - Exam GENERAL: The patient is alert and oriented x3, not in any acute distress. Well developed, well nourished. HEENT: Pupils are round and equally reacting to light. EOMI. No scleral icterus. No conjunctival pallor. Normocephalic, atraumatic. No pharyngeal erythema. No thyromegaly. CARDIOVASCULAR: S1 and S2 present. No murmurs, rubs, or gallops. -PULMONARY: Chest is clear to auscultation, no wheezing , bilateral basal crackles. -lwft Breast exam(after patient gave verbal consent and in the presence of bedside nurse Maryan) no erythema or swelling no nipple abnormality. Tender nodule behind the left nipple ABDOMEN: Soft, nontender, nondistended, normoactive bowel sounds. No palpable organomegaly. MUSCULOSKELETAL: No joint swelling or deformity. -EXTREMITIES: No cyanosis, clubbing,. 2+ bilateral pitting leg edema. NEUROLOGICAL: Gross neurological examination did not reveal any focal deficits. SKIN: No rashes. no petechiae. - Labs CBC & Chem 7: 03/14/25 06:42 03/14/25 06:42 Labs: Abnormal Lab Results - Last 24 Hours (Table) 03/14/25 03/14/25 03/15/25 Range/Units 16:40 20:28 06:13 POC Glucose (mg/dL) 264 H 303 H 236 H (70-110) mg/dL 03/15/25 Range/Units 11:40 POC Glucose (mg/dL) 178 H (70-110) mg/dL Assessment and Plan Assessment: acute left mastitis Worsening shortness of breath due to acute diastolic CHF and fluid overload ESRD on hemodialysis 4 times per week M TTS Left upper extremity worsening swelling. Rule out DVT. Venous Doppler was negative for DVT And dialysis graft appears patent, transfer text. Patient cleared by vascular surgery team Hypertension Acute acute on chronic CHF with preserved EF Hyperglycemia with uncontrolled diabetes type 1 Hyperkalemia secondary to CKD History of CVA/TIA with no residual weakness Diabetic gastroparesis and diabetic peripheral neuropathy History of optic neuritis Hypothyroidism Plan: Continue with IV vancomycin per ID team General Surgery team also following for her breast infection, they recommend patient to breast biopsy with her surgeon as an outpatient Continue with hemodialysis per nephrology team Vascular surgery team signed off the case Continue with insulin. consult ID team Continue with Lantus 13 units twice daily and Humalog 11 units 3 times daily. At home she was taking 8 units 3 times daily Labs and medication were reviewed.. Continue same treatment. Continue with symptomatic treatment. Resume home medication. Monitor labs and vitals. DVT and GI prophylaxis. Further recommendations as per clinical course of the patient DVT prophylaxis: Subcutaneous heparin GI Prophylaxis: Pepcid Prognosis is guarded
[2025-03-15 16:48] LABS: Glucose,Whole Blood 377 mg/dL (70-110)
--- NOTE | 2025-03-15 21:51 | P.PN ---
Subjective Progress Note Date: 03/15/25 Principal diagnosis: Reason for follow-up is left mastitis Patient is a 35-year-old female with multiple comorbidities including diabetes mellitus hypertension seizure disorder end-stage renal disease on dialysis presented to hospital with shortness of breath ID consult because of left breast pain concerning for mastitis. On today's evaluation that is 03/15/2025, the patient continues to be afebrile, the patient is on 3 L current oxygen and breathing comfortably, the Pt still complaining of pain to the left breast area but no drainage some nausea but no vomiting or diarrhea. No new lab has been obtained today Objective - Vital Signs Vital signs: Vital Signs Temp 98.7 F 03/15/25 13:49 Pulse 75 03/15/25 13:49 Resp 18 03/15/25 13:49 BP 168/83 03/15/25 13:49 Pulse Ox 100 03/15/25 13:49 FiO2 24 03/14/25 08:42 Intake & Output 03/14/25 03/15/25 03/15/25 18:59 06:59 18:59 Intake Total 1970 810 500 Output Total 9400 9500 Balance -7430 810 -9000 Weight 77.7 kg 76.5 kg Intake: Oral 1570 810 Hemodialysis 400 500 Output: Hemodialysis 4900 5000 Hemodialysis Net Amount 4500 4500 Other: Voiding Method Toilet Toilet Toilet # Voids 3 1 - Exam GENERAL DESCRIPTION: Middle-age female lying in bed in no distress RESPIRATORY SYSTEM: Unlabored breathing , decreased breath sounds at bases HEART: S1 S2 regular rate and rhythm , ABDOMEN: Soft , no tenderness EXTREMITIES: No edema feet - Labs CBC & Chem 7: 03/14/25 06:42 03/14/25 06:42 Labs: Abnormal Lab Results - Last 24 Hours (Table) 03/14/25 03/14/25 03/15/25 Range/Units 16:40 20:28 06:13 POC Glucose (mg/dL) 264 H 303 H 236 H (70-110) mg/dL 03/15/25 Range/Units 11:40 POC Glucose (mg/dL) 178 H (70-110) mg/dL Assessment and Plan (1) Mastitis, left, acute Current Visit: Yes Status: Acute Code(s): N61.0 - MASTITIS WITHOUT ABSCESS SNOMED Code(s): 48052379 Plan: 1patient complaining of pain to the left breast area with some tenderness and currently some drainage concerning for mastitis likely from gram-positive's control in this patient with a history of end-stage renal disease will need to cover for more resistant pathogen such as MRSA 2- breast ultrasound did show skin thickening and left axilla lymphadenopathy will benefit from biopsy surgery recommend the patient to follow-up with her own breast surgeon Sooner than later for biopsy to confirm her underlying condition and subsequent appropriate treatment 3patient is currently on vancomycin can switched over to oral Doxy or Zyvox on discharge Dictation was produced using [employer] software. please excuse any grammatical, word or spelling errors. Time with Patient: Less than 30
[2025-03-15] MEDS: INSULIN GLARGINE (LANTUS) 100 UNIT/ML SYR SQ SCH (22:33)
[2025-03-15 22:47] LABS: Glucose,Whole Blood 489 mg/dL (70-110)
[2025-03-15 22:47] LABS: Glucose,Whole Blood 504 mg/dL (70-110)
[2025-03-15] MEDS ORDERED: DEXTROSE 50% SYRINGE 50 ML IVP PRN ×2 (23:24)
[2025-03-15] MEDS: INSULIN LISPRO (HumaLOG) 100 UNIT/ML 10 mL VL SQ ONE (23:32)
[2025-03-16 06:19] LABS: Glucose,Whole Blood 109 mg/dL (70-110)
[2025-03-16] MEDS: INSULIN LISPRO (HumaLOG) 100 UNIT/ML 10 mL VL SQ SCH (06:38)
[2025-03-16 08:11] LABS: Glucose,Whole Blood 31 mg/dL (70-110)
--- NOTE | 2025-03-16 08:26 | XR ---
EXAMINATION TYPE: XR chest 1V DATE OF EXAM: 03/16/2025 COMPARISON: 03/14/2025 CLINICAL INDICATION: Female, 35 years old with history of sob; TECHNIQUE: Single frontal view of the chest is obtained. FINDINGS: Heart borderline to mildly enlarged. Interstitial opacities persist without significant change. No pl eural effusion. IMPRESSION: Ongoing CHF with interstitial pulmonary edema. Other inflammatory causes of interstitial lung disease not excluded. [facility], , 03/16/2025 8:23 AM
[2025-03-16 08:31] LABS: Glucose,Whole Blood 37 mg/dL (70-110)
[2025-03-16] MEDS: DEXTROSE 50% SYRINGE 50 ML IVP PRN (08:34)
[2025-03-16 08:48] LABS: Glucose,Whole Blood 145 mg/dL (70-110)
--- NOTE | 2025-03-16 10:43 | P.PN ---
Subjective Progress Note Date: 03/16/25 Principal diagnosis: Reason for follow-up is left mastitis Patient is a 35-year-old female with multiple comorbidities including diabetes mellitus hypertension seizure disorder end-stage renal disease on dialysis presented to hospital with shortness of breath ID consult because of left breast pain concerning for mastitis. On today's evaluation that is 03/16/2025, Patient is afebrile patient is currently on 3 L of oxygen complaining of some shortness of breath and pain to the left breast area no drainage nausea but no vomiting and no diarrhea. No new labs has been obtained today Objective - Vital Signs Vital signs: Vital Signs Temp 97.8 F 03/16/25 07:35 Pulse 67 03/16/25 07:35 Resp 17 03/16/25 07:35 BP 134/77 03/16/25 07:35 Pulse Ox 100 03/16/25 07:35 FiO2 24 03/14/25 08:42 Intake & Output 03/15/25 03/16/25 03/16/25 18:59 06:59 18:59 Intake Total 500 540 Output Total 9550 Balance -9050 540 Weight 77.9 kg Intake: Oral 540 Hemodialysis 500 Output: Urine 50 Hemodialysis 5000 Hemodialysis Net Amount 4500 Other: Voiding Method Toilet Toilet # Voids 1 - Exam GENERAL DESCRIPTION: Middle-age female lying in bed in no distress RESPIRATORY SYSTEM: Unlabored breathing , decreased breath sounds at bases HEART: S1 S2 regular rate and rhythm , ABDOMEN: Soft , no tenderness EXTREMITIES: No edema feet - Labs CBC & Chem 7: 03/14/25 06:42 03/14/25 06:42 Labs: Abnormal Lab Results - Last 24 Hours (Table) 03/15/25 03/15/25 03/15/25 Range/Units 11:40 16:46 22:43 POC Glucose (mg/dL) 178 H 377 H 504 H* (70-110) mg/dL Hemoglobin A1c (<=6.0) % 03/15/25 03/16/25 03/16/25 Range/Units 22:45 03:50 08:09 POC Glucose (mg/dL) 489 H 31 L* (70-110) mg/dL Hemoglobin A1c 7.3 H (<=6.0) % 03/16/25 03/16/25 Range/Units 08:30 08:47 POC Glucose (mg/dL) 37 L* 145 H (70-110) mg/dL Hemoglobin A1c (<=6.0) % Assessment and Plan (1) Mastitis, left, acute Current Visit: Yes Status: Acute Code(s): N61.0 - MASTITIS WITHOUT ABSCESS SNOMED Code(s): 00921424 Plan: 1patient complaining of pain to the left breast area with some tenderness and currently some drainage concerning for mastitis likely from gram-positive's control in this patient with a history of end-stage renal disease will need to cover for more resistant pathogen such as MRSA 2- breast ultrasound did show skin thickening and left axilla lymphadenopathy will benefit from biopsy surgery recommend the patient to follow-up with her own breast surgeon Sooner than later for biopsy to confirm her underlying condition and subsequent appropriate treatment 3patient antibiotics can be switched over to oral doxycycline if Zyvox cannot be used for a short course Dictation was produced using [employer] dictation software. please excuse any grammatical, word or spelling errors. Time with Patient: Less than 30
[2025-03-16 12:02] LABS: Glucose,Whole Blood 137 mg/dL (70-110)
[2025-03-16 16:39] LABS: Glucose,Whole Blood 216 mg/dL (70-110)
--- NOTE | 2025-03-16 17:20 | P.PN ---
Subjective Patient is seen for follow-up for end-stage renal disease. Receiving daily dialysis with UF of 4.5 L each treatment. Some improvement in edema noted but patient remains volume overloaded. Patient is noted to have increased salt intake. Discussed with her in detail regarding importance of salt restriction. Objective - Vital Signs Vital signs: Vital Signs Temp 98.2 F 03/16/25 16:26 Pulse 73 03/16/25 16:26 Resp 16 03/16/25 16:26 BP 161/80 03/16/25 16:26 Pulse Ox 100 03/16/25 07:35 FiO2 24 03/14/25 08:42 Intake & Output 03/15/25 03/16/25 03/16/25 18:59 06:59 18:59 Intake Total 500 540 400 Output Total 9550 6400 Balance -9050 540 -6000 Weight 77.9 kg Intake: Oral 540 Hemodialysis 500 400 Output: Urine 50 Hemodialysis 5000 3400 Hemodialysis Net Amount 4500 3000 Other: Voiding Method Toilet Toilet # Voids 1 - Exam Patient is awake, comfortable, no acute distress Alert oriented x 3 Examination of the heart S1 and S2 Examination of the lungs bilateral breath sounds are heard with decreased breath sounds at the bases Abdomen is soft nontender AV graft is functioning well Examination of lower extremities shows edema 2+ bilaterally - Labs CBC & Chem 7: 03/14/25 06:42 03/14/25 06:42 Labs: Abnormal Lab Results - Last 24 Hours (Table) 03/15/25 03/15/25 03/16/25 Range/Units 22:43 22:45 03:50 POC Glucose (mg/dL) 504 H* 489 H (70-110) mg/dL Hemoglobin A1c 7.3 H (<=6.0) % 03/16/25 03/16/25 03/16/25 Range/Units 08:09 08:30 08:47 POC Glucose (mg/dL) 31 L* 37 L* 145 H (70-110) mg/dL Hemoglobin A1c (<=6.0) % 03/16/25 03/16/25 Range/Units 12:01 16:38 POC Glucose (mg/dL) 137 H 216 H (70-110) mg/dL Hemoglobin A1c (<=6.0) % Assessment and Plan Assessment: 1. End-stage renal disease on hemodialysis on Wednesday and Wednesday for volume overload. History of noncompliance with salt and fluid restriction. 2. Volume overload 3. Dyspnea associated with volume overload 4. 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 CKD mineral bone disorder 6. Pericardial effusion during last admission with positive antihistone antibodies, currently off of hydralazine 7. Hypertension with CKD stage V, mostly volume sensitive. 8. Left breast mastitis maintained on antibiotics and warm compresses, being followed by surgery with no plans for intervention. Plan: Reinforced dietary restrictions with low salt and fluid restriction along with renal diet Repeat hemodialysis in a.m. Discussed importance of salt restriction and diet. Avoid chips Continue current antihypertensive regimen
[2025-03-16 18:28] LABS: Hepatitis B Surface Antigen Nonreactive (Nonreactive)
[2025-03-16 21:58] LABS: Glucose,Whole Blood 99 mg/dL (70-110)
[2025-03-17 00:27] LABS: Glucose,Whole Blood 130 mg/dL (70-110)
--- NOTE | 2025-03-17 02:58 | P.PN ---
Subjective Patient is a 35-year-old female with a past medical history of ESRD on hemodialysis 4 times a week, M TTS with right subclavian permacath awaiting p marcela and liver transplant , hypertension, diabetes type 2 insulin-dependent, hypothyroidism, diabetic neuropathy, gastroparesis,, anxiety/depression, currently everyday smoker and history of marijuana and methamphetamine use. Patient was recently discharged from the hospital was admitted due to hype rtensive emergency and pulmonary edema and fluid overload. Patient presents to ER with complaints of worsening shortness of breath since yesterday. Last hemodialysis was on Wednesday. Also complains of cough and leg swelling. Complains of nausea. No episodes of vomiting. Denies any chest pain or palpitations. No fever no chills. Patient states that she has been taking her insulin regimen as recommended. Chest x-ray showed cardiomegaly with patchy interstitial prominence suggesting CHF exacerbation. Correlate clinically. EKG showed sinus rhythm Laboratory data showed WBC 11.2 hemoglobin 10.0 and platelets 259 sodium 125 potassium 5.2 with slight hemolysis, chloride 82 BUN 74 creatinine 4.96 and blood sugar 612 anion gap 18 and bicarb is 25 lactic acid 2.1 AST 50 ALT 112 alk phos 211 and proBNP 81,109, acetone negative 02/27/2025 Patient is lying in the bed. Awake alert and oriented x 3. No complaints of chest pain. Shortness of breath is improving. Complains of nausea. No cough or sputum production. Patient underwent hemodialysis yesterday and is also scheduled today. No fever no chills. Blood sugar is controlled. Laboratory data showed WBC 9.6 hemoglobin 9.6 and platelets 228 sodium 129 potassium 4.7 chloride 90 bicarb is 26 BUN 55 and creatinine 4.13 and blood s ugar 189 and calcium 9.1. Nephrology is on board. 02/28/2025 Patient is resting in the bed. Awake alert and oriented x 3. No complaints of chest pain. Shortness of breath is much improved. Able to tolerate oral diet. No cough or sputum production. Blood pressure is also improved. Patient is requiring 2 L oxygen via nasal cannula. CBG went down to 49 around 1130 which is improved now. Hemodialysis tomorrow. 03/01/2025 Patient is lying in the bed. Awake alert and oriented x 3. Complains of significant cough and whitish to brownish sputum production. Also complains of nausea. Patient did have hemodialysis yesterday with 2.5 L of ultrafiltration. Again scheduled today. No complaints of chest pain. Shortness of breath is better. Patient has been afebrile. Laboratory data reviewed. 03/02/2025 Patient is lying in the bed awake alert and oriented x 3. She complains of cough and shortness of breath. Patient underwent hemodialysis yesterday and next hemodialysis session tomorrow. No complaints of chest pain. Patient has been afebrile. Repeat chest x-ray showed improvement in pulmonary vascular congestion. Patient is tolerating oral diet. Lab data reviewed. 03/03/2025 Patient is lying in the bed. Awake alert and oriented. Patient states that she was nauseous this morning. Also complains of shortness of breath still. No episodes of vomiting. No fever no chills. Patient is undergoing hemodialysis today. Lab data showed WBC 12.5 hemoglobin 8.5 and platelets 239 sodium 131 potassium 5.7 chloride 93 bicarb is 25 BUN 57 and creatinine 5.45 and blood sugar 207. Phosphorus 5.4. Nephrology is on board. 03/04/2025 Patient is lying in the bed but awake alert and oriented. Complains of left upper extremity swelling. Rates patient is still having bilateral swelling. Scheduled for hemodialysis. Nephrology on board. Patient is also on fluid restriction. Laboratory data showed WBC 8.2 hemoglobin 8.9 and platelets 240 sodium 133 potassium 4.9 chloride 86 bicarbonate 26 BUN 37 creatinine 4.1 and blood sugar 130. Nephrology is on board. 03/05/2025. Patient is resting in the bed. Awake alert and oriented. Still complains of shortness of breath and worsening left upper extremity swelling. Duplex scan is negative for DVT. Patient was seen by vascular surgery recommends compression stockings and Jv wrap to the left upper extremity. Patient is also complaining of left breast swelling and tender. The patient has been afebrile. Laboratory data showed WBC 8.1 hemoglobin 8.6 and platelets 213 sodium 132 potassium 5.9 chloride 97 bicarb is 24 BUN 55 creatinine 4.98 and blood sugar 67. Calcium 9.3 03/06/2025 Patient is lying in the bed. Awake alert and oriented. Still complains of left arm pain and also left breast discomfort with swelling. No fever no chills. No cough or sputum production. Complains of nausea. No gross vomiting. Patient is getting hemodialysis. Laboratory data showed sodium 136 potassium 4.9 chloride 95 bicarb is 28 BUN 39 and creatinine 4.08 and blood sugar 133. Calcium 9.0. 03/07 Patient still complains from some shortness of breath, she still has leg edema She is able to walk. She has good appetite but she is constipated despite being on Colace and MiraLAX No abdominal pain or tenderness She is complaining from left breast pain and tenderness x 1 week. No open wound or abnormal discharge. Ultrasound today showing possible mastoiditis per report. I reviewed the ultrasound by myself We will discharge patient on Augmentin and consult gynecology service Patient still getting hemodialysis for her end-stage renal disease and diastolic CHF with nephrology following closely Left upper extremity and graft is in Arch compression stocking Vascular surgery team evaluated the patient and signed off the case from their perspective 03/08 Patient sugars better controlled after increasing her Lantus and Humalog doses She is still complaining from cough and some chest pain with cough, exertional dyspnea related to her diastolic CHF although it is improving. She is getting hemodialysis today. No significant leg edema She still has left upper extremity pain, she was already evaluated by vascular surgery team and she is getting hemodialysis currently through her graft in the left upper extremity. Patient will require follow-up as an outpatient vascular surgery team She is placed on Augmentin for possible left mastitis. Yesterday her farm equipment service technician Dr. Lebron does not think they need to see the patient as she was not taking control pills. He recommended surgical team consult which was placed for further evaluation and recommendation. 03/09 Patient breathing and chest congestion and exertional dyspnea improved with hemodialysis. She still have coughing on Robitussin added today She is still complaining from nausea and pain in her left breast. She is on Augmentin. Surgery team following closely. The recommend to repeat breast ultrasound for further evaluation to see the progress or regress in the treatment She is continued on hemodialysis Patient was asking to be discharged home today. She says she will follow-up with her farm equipment service technician Dr. Galarza [facility] Vascular surgery evaluated the patient for left upper extremities pain and cleared for discharge. Patient needs to follow-up with vascular surgery as an outpatient, she was informed and she agrees 03/10 Patient still complaining from pain in her left breast. Her left breast fullness behind the nipple looks larger and tender. As per report there is also some bloody discharge occasionally from the left nipple. Repeat ultrasound requested yesterday and pending results. We called for the lab to obtain the result She is currently on Augmentin. But because of continued symptoms and on examination the fullness looks larger we are going to consult infectious team. Surgery team also following closely She is complaining from coughing persistently despite giving her cough medicine. She is getting hemodialysis today Her left upper pain controlled No other new complaints will continue close monitoring (All encounter and exam done in the presence of the bedside nurse Becki and after patient gave verbal consent) 03/11 Patient with left mastitis and nodular density below the nipple which is tender and it was enlarging as of yesterday therefore ID team was consulted Antibiotics were changed from Augmentin into IV vancomycin Patient today looks similar, however she is not in distress and eating her diet with no difficulty. No other new complaint Continue with hemodialysis per nephrology team Repeat ultrasound of the breast is done but report still not available Continue with insulin we will decrease her Lantus 14 units up to 15 units twice daily. Also increase her Humalog 8 units up to 12 units with meals but with the treatment of infection she requires less insulin and lowered the dose to 14 units of Lantus again and Humalog to 11 units 03/12 Still has coughing which bothers her no chest pain. No dyspnea at rest Also complains from headache and pain in her left breast Getting through hemodialysis today and 4.5 L will be taken out Sugars controlled. She will lower her Levemir to her previous dose of 14 which is already done but we will lower Humalog from 11 down to her previous dose of 8 units as sugar was low this morning despite lowering insulin dose yesterday. However currently awake alert and eating her breakfast 03/13 Patient still has some tenderness in her left breast area she still on IV vancomycin for possible mastitis Infectious disease and surgery team following closely and recommend biopsy however surgery team recommended to do ductal excisional biopsy with her breast surgeon as an outpatient. She is getting hemodialysis today No other new complaints 03/14 Patient complaining from coughing today and exertional dyspnea. We changed her Robitussin and Tessalon She is satting well on room air Repeat chest x-ray showing bilateral prominence, slightly worse than before per report I reviewed the chest x-ray by myself and agree with these findings. Most likely secondary to fluid overload. Patient ultrasound of the left breast from 03/09 report Came back showing thickening of the whole breast with echogenic foci seen throughout. No definite masses or fluid collection seen. Findings suggest mastitis. Also there is prominent left axillary lymph node measuring 1.6 x 1.6 x 3.3 cm most likely reactive. Surgery team they recommend biopsy to be done with her on surgeon. Sugar is low normal therefore we will lower insulin dose routine of Lantus and to 13 units twice daily and keep Humalog 8 units with meals 03/15 Patient still have shortness of breath and coughing, changed her cough medicine to Tessalon. She is getting hemodialysis today and they can move more than the maximum about 3.5 L She still complains from pain in her left breast and she remains on IV antibiotics. I discussed with the patient about the importance of outpatient follow-up with her breast surgeon for biopsy and mammogram and she states she will consider it, 03/16 Patient clinically looks the same she still complains from pain in her left breast and her dyspnea looks better This morning her sugar was low because she took extra dose of insulin by mistake, later on her sugars corrected patient remains asymptomatic with no change in mental status Objective - Vital Signs Vital signs: Vital Signs Temp 97.8 F 03/16/25 07:35 Pulse 67 03/16/25 07:35 Resp 17 03/16/25 07:35 BP 134/77 03/16/25 07:35 Pulse Ox 100 03/16/25 07:35 FiO2 24 03/14/25 08:42 Intake & Output 03/15/25 03/16/25 03/16/25 18:59 06:59 18:59 Intake Total 500 540 Output Total 9550 Balance -9050 540 Weight 77.9 kg Intake: Oral 540 Hemodialysis 500 Output: Urine 50 Hemodialysis 5000 Hemodialysis Net Amount 4500 Other: Voiding Method Toilet Toilet # Voids 1 - Exam GENERAL: The patient is alert and oriented x3, not in any acute distress. Well developed, well nourished. HEENT: Pupils are round and equally reacting to light. EOMI. No scleral icterus. No conjunctival pallor. Normocephalic, atraumatic. No pharyngeal erythema. No thyromegaly. CARDIOVASCULAR: S1 and S2 present. No murmurs, rubs, or gallops. -PULMONARY: Chest is clear to auscultation, no wheezing , bilateral basal crackles. -lwft Breast exam(after patient gave verbal consent and in the presence of bedside nurse Maryan) no erythema or swelling no nipple abnormality. Tender nodule behind the left nipple ABDOMEN: Soft, nontender, nondistended, normoactive bowel sounds. No palpable organomegaly. MUSCULOSKELETAL: No joint swelling or deformity. -EXTREMITIES: No cyanosis, clubbing,. 2+ bilateral pitting leg edema. NEUROLOGICAL: Gross neurological examination did not reveal any focal deficits. SKIN: No rashes. no petechiae. - Labs CBC & Chem 7: 03/14/25 06:42 03/14/25 06:42 Labs: Abnormal Lab Results - Last 24 Hours (Table) 03/15/25 03/15/25 03/15/25 Range/Units 16:46 22:43 22:45 POC Glucose (mg/dL) 377 H 504 H* 489 H (70-110) mg/dL Hemoglobin A1c (<=6.0) % 03/16/25 03/16/25 03/16/25 Range/Units 03:50 08:09 08:30 POC Glucose (mg/dL) 31 L* 37 L* (70-110) mg/dL Hemoglobin A1c 7.3 H (<=6.0) % 03/16/25 03/16/25 Range/Units 08:47 12:01 POC Glucose (mg/dL) 145 H 137 H (70-110) mg/dL Hemoglobin A1c (<=6.0) % Assessment and Plan Assessment: acute left mastitis Worsening shortness of breath due to acute diastolic CHF and fluid overload ESRD on hemodialysis 4 times per week M TTS Left upper extremity worsening swelling. Rule out DVT. Venous Doppler was negative for DVT And dialysis graft appears patent, transfer text. Patient cleared by vascular surgery team Hypertension Acute acute on chronic CHF with preserved EF Hyperglycemia with uncontrolled diabetes type 1 Hyperkalemia secondary to CKD History of CVA/TIA with no residual weakness Diabetic gastroparesis and diabetic peripheral neuropathy History of optic neuritis Hypothyroidism Plan: Continue with IV vancomycin per ID team General Surgery team also following for her breast infection, they recommend patient to breast biopsy with her surgeon as an outpatient Continue with hemodialysis per nephrology team Vascular surgery team signed off the case Continue with insulin. consult ID team Continue with Lantus 13 units twice daily and Humalog 11 units 3 times daily. At home she was taking 8 units 3 times daily Labs and medication were reviewed.. Continue same treatment. Continue with symptomatic treatment. Resume home medication. Monitor labs and vitals. DVT and GI prophylaxis. Further recommendations as per clinical course of the patient DVT prophylaxis: Subcutaneous heparin GI Prophylaxis: Pepcid Prognosis is guarded
[2025-03-17 06:12] LABS: Glucose,Whole Blood 66 mg/dL (70-110)
[2025-03-17 07:11] LABS: Glucose,Whole Blood 72 mg/dL (70-110)
[2025-03-17 11:30] LABS: Glucose,Whole Blood 134 mg/dL (70-110)
--- NOTE | 2025-03-17 14:45 | P.PN ---
Subjective Progress Note Date: 03/17/25 Patient is seen for follow-up for end-stage renal disease. Receiving daily dialysis with UF of 4.5 L each treatment. Some improvement in edema noted but patient remains volume overloaded. Tolerated HD today. Patient is awake, comfortable, no acute distress Alert oriented x 3 Examination of the heart S1 and S2 Examination of the lungs bilateral breath sounds are heard with decreased breath sounds at the bases Abdomen is soft nontender AV graft is functioning well Examination of lower extremities shows edema 2+ bilaterally Objective - Vital Signs Vital signs: Vital Signs Temp 97.5 F L 03/17/25 13:58 Pulse 71 03/17/25 13:58 Resp 18 03/17/25 13:58 BP 167/86 03/17/25 13:58 Pulse Ox 100 03/17/25 06:59 FiO2 24 03/14/25 08:42 Intake & Output 03/16/25 03/17/25 03/17/25 18:59 06:59 18:59 Intake Total 400 740 500 Output Total 6400 9500 Balance -6000 740 -9000 Weight 75 kg Intake: Oral 740 Hemodialysis 400 500 Output: Hemodialysis 3400 5000 Hemodialysis Net Amount 3000 4500 Other: Voiding Method Toilet Toilet - Labs CBC & Chem 7: 03/14/25 06:42 03/14/25 06:42 Labs: Abnormal Lab Results - Last 24 Hours (Table) 03/16/25 03/16/25 03/17/25 Range/Units 08:51 16:38 00:25 POC Glucose (mg/dL) 216 H 130 H (70-110) mg/dL Hep Bs Antibody A (Negative) 03/17/25 03/17/25 Range/Units 06:11 11:27 POC Glucose (mg/dL) 66 L 134 H (70-110) mg/dL Hep Bs Antibody (Negative) Assessment and Plan Assessment: 1. End-stage renal disease on hemodialysis on Wednesday and Wednesday for volume overload. History of noncompliance with salt and fluid restriction. 2. Volume overload 3. Dyspnea associated with volume overload 4. 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 CKD mineral bone disorder 6. Pericardial effusion during last admission with positive antihistone antibodies, currently off of hydralazine 7. Hypertension with CKD stage V, mostly volume sensitive. 8. Left breast mastitis maintained on antibiotics and warm compresses, being followed by surgery with no plans for intervention. Plan: Reinforced dietary restrictions with low salt and fluid restriction along with renal diet Repeat hemodialysis today, next treatment Wednesday Discussed importance of salt restriction and diet. Avoid chips Continue current antihypertensive regimen
[2025-03-17 16:59] LABS: Glucose,Whole Blood 174 mg/dL (70-110)
[2025-03-17 20:06] LABS: Glucose,Whole Blood 98 mg/dL (70-110)
[2025-03-17] MEDS: VANCOMYCIN 1,500 MG in SODIUM CHLORIDE 0.9% 500 ML 500 ML IVPB ONE (20:50)
[2025-03-17] MEDS: INSULIN GLARGINE (LANTUS) 100 UNIT/ML SYR SQ SCH (20:59)
--- NOTE | 2025-03-17 23:37 | P.PN ---
Subjective Patient is a 35-year-old female with a past medical history of ESRD on hemodialysis 4 times a week, M TTS with right subclavian permacath awaiting p marcela and liver transplant , hypertension, diabetes type 2 insulin-dependent, hypothyroidism, diabetic neuropathy, gastroparesis,, anxiety/depression, currently everyday smoker and history of marijuana and methamphetamine use. Patient was recently discharged from the hospital was admitted due to hype rtensive emergency and pulmonary edema and fluid overload. Patient presents to ER with complaints of worsening shortness of breath since yesterday. Last hemodialysis was on Wednesday. Also complains of cough and leg swelling. Complains of nausea. No episodes of vomiting. Denies any chest pain or palpitations. No fever no chills. Patient states that she has been taking her insulin regimen as recommended. Chest x-ray showed cardiomegaly with patchy interstitial prominence suggesting CHF exacerbation. Correlate clinically. EKG showed sinus rhythm Laboratory data showed WBC 11.2 hemoglobin 10.0 and platelets 259 sodium 125 potassium 5.2 with slight hemolysis, chloride 82 BUN 74 creatinine 4.96 and blood sugar 612 anion gap 18 and bicarb is 25 lactic acid 2.1 AST 50 ALT 112 alk phos 211 and proBNP 81,109, acetone negative 02/27/2025 Patient is lying in the bed. Awake alert and oriented x 3. No complaints of chest pain. Shortness of breath is improving. Complains of nausea. No cough or sputum production. Patient underwent hemodialysis yesterday and is also scheduled today. No fever no chills. Blood sugar is controlled. Laboratory data showed WBC 9.6 hemoglobin 9.6 and platelets 228 sodium 129 potassium 4.7 chloride 90 bicarb is 26 BUN 55 and creatinine 4.13 and blood s ugar 189 and calcium 9.1. Nephrology is on board. 02/28/2025 Patient is resting in the bed. Awake alert and oriented x 3. No complaints of chest pain. Shortness of breath is much improved. Able to tolerate oral diet. No cough or sputum production. Blood pressure is also improved. Patient is requiring 2 L oxygen via nasal cannula. CBG went down to 49 around 1130 which is improved now. Hemodialysis tomorrow. 03/01/2025 Patient is lying in the bed. Awake alert and oriented x 3. Complains of significant cough and whitish to brownish sputum production. Also complains of nausea. Patient did have hemodialysis yesterday with 2.5 L of ultrafiltration. Again scheduled today. No complaints of chest pain. Shortness of breath is better. Patient has been afebrile. Laboratory data reviewed. 03/02/2025 Patient is lying in the bed awake alert and oriented x 3. She complains of cough and shortness of breath. Patient underwent hemodialysis yesterday and next hemodialysis session tomorrow. No complaints of chest pain. Patient has been afebrile. Repeat chest x-ray showed improvement in pulmonary vascular congestion. Patient is tolerating oral diet. Lab data reviewed. 03/03/2025 Patient is lying in the bed. Awake alert and oriented. Patient states that she was nauseous this morning. Also complains of shortness of breath still. No episodes of vomiting. No fever no chills. Patient is undergoing hemodialysis today. Lab data showed WBC 12.5 hemoglobin 8.5 and platelets 239 sodium 131 potassium 5.7 chloride 93 bicarb is 25 BUN 57 and creatinine 5.45 and blood sugar 207. Phosphorus 5.4. Nephrology is on board. 03/04/2025 Patient is lying in the bed but awake alert and oriented. Complains of left upper extremity swelling. Rates patient is still having bilateral swelling. Scheduled for hemodialysis. Nephrology on board. Patient is also on fluid restriction. Laboratory data showed WBC 8.2 hemoglobin 8.9 and platelets 240 sodium 133 potassium 4.9 chloride 86 bicarbonate 26 BUN 37 creatinine 4.1 and blood sugar 130. Nephrology is on board. 03/05/2025. Patient is resting in the bed. Awake alert and oriented. Still complains of shortness of breath and worsening left upper extremity swelling. Duplex scan is negative for DVT. Patient was seen by vascular surgery recommends compression stockings and Jv wrap to the left upper extremity. Patient is also complaining of left breast swelling and tender. The patient has been afebrile. Laboratory data showed WBC 8.1 hemoglobin 8.6 and platelets 213 sodium 132 potassium 5.9 chloride 97 bicarb is 24 BUN 55 creatinine 4.98 and blood sugar 67. Calcium 9.3 03/06/2025 Patient is lying in the bed. Awake alert and oriented. Still complains of left arm pain and also left breast discomfort with swelling. No fever no chills. No cough or sputum production. Complains of nausea. No gross vomiting. Patient is getting hemodialysis. Laboratory data showed sodium 136 potassium 4.9 chloride 95 bicarb is 28 BUN 39 and creatinine 4.08 and blood sugar 133. Calcium 9.0. 03/07 Patient still complains from some shortness of breath, she still has leg edema She is able to walk. She has good appetite but she is constipated despite being on Colace and MiraLAX No abdominal pain or tenderness She is complaining from left breast pain and tenderness x 1 week. No open wound or abnormal discharge. Ultrasound today showing possible mastoiditis per report. I reviewed the ultrasound by myself We will discharge patient on Augmentin and consult gynecology service Patient still getting hemodialysis for her end-stage renal disease and diastolic CHF with nephrology following closely Left upper extremity and graft is in Arch compression stocking Vascular surgery team evaluated the patient and signed off the case from their perspective 03/08 Patient sugars better controlled after increasing her Lantus and Humalog doses She is still complaining from cough and some chest pain with cough, exertional dyspnea related to her diastolic CHF although it is improving. She is getting hemodialysis today. No significant leg edema She still has left upper extremity pain, she was already evaluated by vascular surgery team and she is getting hemodialysis currently through her graft in the left upper extremity. Patient will require follow-up as an outpatient vascular surgery team She is placed on Augmentin for possible left mastitis. Yesterday her commercial cleaner Dr. Lebron does not think they need to see the patient as she was not taking control pills. He recommended surgical team consult which was placed for further evaluation and recommendation. 03/09 Patient breathing and chest congestion and exertional dyspnea improved with hemodialysis. She still have coughing on Robitussin added today She is still complaining from nausea and pain in her left breast. She is on Augmentin. Surgery team following closely. The recommend to repeat breast ultrasound for further evaluation to see the progress or regress in the treatment She is continued on hemodialysis Patient was asking to be discharged home today. She says she will follow-up with her commercial cleaner Dr. Galarza from [facility] Vascular surgery evaluated the patient for left upper extremities pain and cleared for discharge. Patient needs to follow-up with vascular surgery as an outpatient, she was informed and she agrees 03/10 Patient still complaining from pain in her left breast. Her left breast fullness behind the nipple looks larger and tender. As per report there is also some bloody discharge occasionally from the left nipple. Repeat ultrasound requested yesterday and pending results. We called for the lab to obtain the result She is currently on Augmentin. But because of continued symptoms and on examination the fullness looks larger we are going to consult infectious team. Surgery team also following closely She is complaining from coughing persistently despite giving her cough medicine. She is getting hemodialysis today Her left upper pain controlled No other new complaints will continue close monitoring (All encounter and exam done in the presence of the bedside nurse Becki and after patient gave verbal consent) 03/11 Patient with left mastitis and nodular density below the nipple which is tender and it was enlarging as of yesterday therefore ID team was consulted Antibiotics were changed from Augmentin into IV vancomycin Patient today looks similar, however she is not in distress and eating her diet with no difficulty. No other new complaint Continue with hemodialysis per nephrology team Repeat ultrasound of the breast is done but report still not available Continue with insulin we will decrease her Lantus 14 units up to 15 units twice daily. Also increase her Humalog 8 units up to 12 units with meals but with the treatment of infection she requires less insulin and lowered the dose to 14 units of Lantus again and Humalog to 11 units 03/12 Still has coughing which bothers her no chest pain. No dyspnea at rest Also complains from headache and pain in her left breast Getting through hemodialysis today and 4.5 L will be taken out Sugars controlled. She will lower her Levemir to her previous dose of 14 which is already done but we will lower Humalog from 11 down to her previous dose of 8 units as sugar was low this morning despite lowering insulin dose yesterday. However currently awake alert and eating her breakfast 03/13 Patient still has some tenderness in her left breast area she still on IV vancomycin for possible mastitis Infectious disease and surgery team following closely and recommend biopsy however surgery team recommended to do ductal excisional biopsy with her breast surgeon as an outpatient. She is getting hemodialysis today No other new complaints 03/14 Patient complaining from coughing today and exertional dyspnea. We changed her Robitussin and Tessalon She is satting well on room air Repeat chest x-ray showing bilateral prominence, slightly worse than before per report I reviewed the chest x-ray by myself and agree with these findings. Most likely secondary to fluid overload. Patient ultrasound of the left breast from 03/09 report Came back showing thickening of the whole breast with echogenic foci seen throughout. No definite masses or fluid collection seen. Findings suggest mastitis. Also there is prominent left axillary lymph node measuring 1.6 x 1.6 x 3.3 cm most likely reactive. Surgery team they recommend biopsy to be done with her on surgeon. Sugar is low normal therefore we will lower insulin dose routine of Lantus and to 13 units twice daily and keep Humalog 8 units with meals 03/15 Patient still have shortness of breath and coughing, changed her cough medicine to Tessalon. She is getting hemodialysis today and they can move more than the maximum about 3.5 L She still complains from pain in her left breast and she remains on IV antibiotics. I discussed with the patient about the importance of outpatient follow-up with her breast surgeon for biopsy and mammogram and she states she will consider it, 03/16 Patient clinically looks the same she still complains from pain in her left breast and her dyspnea looks better This morning her sugar was low because she took extra dose of insulin by mistake, later on her sugars corrected patient remains asymptomatic with no change in mental status 03/17 Patient feels improvement Her dyspnea improved her coughing is better Her left breast pain is better and looks her IV antibiotics with IV vancomycin can be switched to oral course upon discharge per ID team with doxycycline and Zyvox However patient was developing hypoglycemia over the last 2 days after treating her infection we will adjusting her insulin dose. Today was also somewhat hypoglycemic we will going to lower her Lantus 14 down to 11 units twice daily and continue with this Humalog with meals at 8 units with meal Objective - Vital Signs Vital signs: Vital Signs Temp 98.7 F 03/17/25 14:38 Pulse 75 03/17/25 14:38 Resp 18 03/17/25 14:38 BP 166/81 03/17/25 14:38 Pulse Ox 100 03/17/25 14:38 FiO2 24 03/14/25 08:42 Intake & Output 03/17/25 03/17/25 03/18/25 06:59 18:59 06:59 Intake Total 740 500 Output Total 9500 Balance 740 -9000 Weight 75 kg Intake: Oral 740 Hemodialysis 500 Output: Hemodialysis 5000 Hemodialysis Net Amount 4500 Other: Voiding Method Toilet Toilet # Voids 3 - Exam GENERAL: The patient is alert and oriented x3, not in any acute distress. Well developed, well nourished. HEENT: Pupils are round and equally reacting to light. EOMI. No scleral icterus. No conjunctival pallor. Normocephalic, atraumatic. No pharyngeal erythema. No thyromegaly. CARDIOVASCULAR: S1 and S2 present. No murmurs, rubs, or gallops. -PULMONARY: Chest is clear to auscultation, no wheezing , bilateral basal crackles. -lwft Breast exam(after patient gave verbal consent and in the presence of bedside nurse Maryan) no erythema or swelling no nipple abnormality. Tender nodule behind the left nipple ABDOMEN: Soft, nontender, nondistended, normoactive bowel sounds. No palpable organomegaly. MUSCULOSKELETAL: No joint swelling or deformity. -EXTREMITIES: No cyanosis, clubbing,. 2+ bilateral pitting leg edema. NEUROLOGICAL: Gross neurological examination did not reveal any focal deficits. SKIN: No rashes. no petechiae. - Labs CBC & Chem 7: 03/14/25 06:42 03/14/25 06:42 Labs: Abnormal Lab Results - Last 24 Hours (Table) 03/16/25 03/17/25 03/17/25 Range/Units 08:51 00:25 06:11 POC Glucose (mg/dL) 130 H 66 L (70-110) mg/dL Hep Bs Antibody A (Negative) 03/17/25 03/17/25 Range/Units 11:27 16:58 POC Glucose (mg/dL) 134 H 174 H (70-110) mg/dL Hep Bs Antibody (Negative) Assessment and Plan Assessment: acute left mastitis Worsening shortness of breath due to acute diastolic CHF and fluid overload ESRD on hemodialysis 4 times per week M TTS Left upper extremity worsening swelling. Rule out DVT. Venous Doppler was negative for DVT And dialysis graft appears patent, transfer text. Patient cleared by vascular surgery team Hypertension Acute acute on chronic CHF with preserved EF Hyperglycemia with uncontrolled diabetes type 1 Hyperkalemia secondary to CKD History of CVA/TIA with no residual weakness Diabetic gastroparesis and diabetic peripheral neuropathy History of optic neuritis Hypothyroidism Plan: Continue with IV vancomycin per ID team General Surgery team also following for her breast infection, they recommend patient to breast biopsy with her surgeon as an outpatient Continue with hemodialysis per nephrology team Vascular surgery team signed off the case Continue with insulin. consult ID team Continue with Lantus 11 units twice daily and Humalog 8 units 3 times daily. Labs and medication were reviewed.. Continue same treatment. Continue with symptomatic treatment. Resume home medication. Monitor labs and vitals. DVT and GI prophylaxis. Further recommendations as per clinical course of the patient DVT prophylaxis: Subcutaneous heparin GI Prophylaxis: Pepcid Prognosis is guarded
[2025-03-18 06:16] LABS: Glucose,Whole Blood 185 mg/dL (70-110)
[2025-03-18] MEDS: INSULIN GLARGINE (LANTUS) 100 UNIT/ML SYR SQ SCH (06:25)
[2025-03-18 06:55] LABS: Glucose,Whole Blood 192 mg/dL (70-110)
[2025-03-18 07:54] VITALS: BP 167/89; PULSE 73; RESP 17; TEMP 99
[2025-03-18 11:32] LABS: Glucose,Whole Blood 160 mg/dL (70-110)
--- NOTE | 2025-03-18 12:39 | P.PN ---
Subjective Progress Note Date: 03/18/25 Patient is seen for follow-up for end-stage renal disease. Receiving daily dialysis with UF of 4.5 L each treatment. No new complaints. Patient is awake, comfortable, no acute distress Alert oriented x 3 Examination of the heart S1 and S2 Examination of the lungs bilateral breath sounds are heard with decreased breath sounds at the bases Abdomen is soft nontender AV graft is functioning well Examination of lower extremities shows edema 2+ bilaterally Objective - Vital Signs Vital signs: Vital Signs Temp 99 F 03/18/25 06:57 Pulse 73 03/18/25 08:15 Resp 17 03/18/25 08:15 BP 167/89 03/18/25 06:57 Pulse Ox 100 03/18/25 09:06 FiO2 24 03/14/25 08:42 Intake & Output 03/17/25 03/18/25 03/18/25 18:59 06:59 18:59 Intake Total 500 2191 Output Total 9500 0 Balance -9000 2191 0 Weight 75.5 kg Intake: Intake, IV Titration 500 Amount Vancomycin 1,500 mg In 500 Sodium Chloride 0.9% 500 ml 500 ml @ 167 mls/hr IVPB ONCE ONE Rx#: [id number] Oral 1691 Hemodialysis 500 Output: Stool 0 Hemodialysis 5000 Hemodialysis Net Amount 4500 Other: Voiding Method Toilet Toilet # Voids 3 4 - Labs CBC & Chem 7: 03/14/25 06:42 03/14/25 06:42 Labs: Abnormal Lab Results - Last 24 Hours (Table) 03/17/25 03/17/25 03/18/25 Range/Units 11:27 16:58 06:15 POC Glucose (mg/dL) 134 H 174 H 185 H (70-110) mg/dL 03/18/25 Range/Units 06:55 POC Glucose (mg/dL) 192 H (70-110) mg/dL Assessment and Plan Assessment: 1. End-stage renal disease on hemodialysis on Wednesday and Wednesday for volume overload. History of noncompliance with salt and fluid restriction. 2. Volume overload 3. Dyspnea associated with volume overload 4. 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 CKD mineral bone disorder 6. Pericardial effusion during last admission with positive antihistone antibodies, currently off of hydralazine 7. Hypertension with CKD stage V, mostly volume sensitive. 8. Left breast mastitis maintained on antibiotics and warm compresses, being followed by surgery with no plans for intervention. Plan: Reinforced dietary restrictions with low salt and fluid restriction along with renal diet Hemodialysis next treatment Wednesday Discussed importance of salt restriction and diet. Avoid chips Continue current antihypertensive regimen
--- NOTE | 2025-03-19 13:04 | P.PN ---
Subjective Progress Note Date: 03/17/25 Principal diagnosis: Reason for follow-up is left mastitis Patient is a 35-year-old female with multiple comorbidities including diabetes mellitus hypertension seizure disorder end-stage renal disease on dialysis presented to hospital with shortness of breath ID consult because of left breast pain concerning for mastitis. On today's evaluation that is 03/17/2025, patient has been afebrile, patient is breathing comfortably and is currently on 3 L nasal cannula oxygen no chest pain some nausea but no vomiting pain to the left breast but no worsening. No new lab has been obtained today Objective - Vital Signs Vital signs: Vital Signs Temp 98.7 F 03/17/25 14:38 Pulse 75 03/17/25 14:38 Resp 18 03/17/25 14:38 BP 166/81 03/17/25 14:38 Pulse Ox 100 03/17/25 14:38 FiO2 24 03/14/25 08:42 Intake & Output 03/16/25 03/17/25 03/17/25 18:59 06:59 18:59 Intake Total 400 740 500 Output Total 6400 9500 Balance -6000 740 -9000 Weight 75 kg Intake: Oral 740 Hemodialysis 400 500 Output: Hemodialysis 3400 5000 Hemodialysis Net Amount 3000 4500 Other: Voiding Method Toilet Toilet - Exam GENERAL DESCRIPTION: Middle-age female lying in bed in no distress RESPIRATORY SYSTEM: Unlabored breathing , decreased breath sounds at bases HEART: S1 S2 regular rate and rhythm , ABDOMEN: Soft , no tenderness EXTREMITIES: No edema feet - Labs CBC & Chem 7: 03/14/25 06:42 03/14/25 06:42 Labs: Abnormal Lab Results - Last 24 Hours (Table) 03/16/25 03/16/25 03/17/25 Range/Units 08:51 16:38 00:25 POC Glucose (mg/dL) 216 H 130 H (70-110) mg/dL Hep Bs Antibody A (Negative) 03/17/25 03/17/25 Range/Units 06:11 11:27 POC Glucose (mg/dL) 66 L 134 H (70-110) mg/dL Hep Bs Antibody (Negative) Assessment and Plan (1) Mastitis, left, acute Status: Acute Code(s): N61.0 - MASTITIS WITHOUT ABSCESS SNOMED Code(s): 93378313 Plan: 1patient complaining of pain to the left breast area with some tenderness and currently some drainage concerning for mastitis likely from gram-positive's control in this patient with a history of end-stage renal disease will need to cover for more resistant pathogen such as MRSA 2- breast ultrasound did show skin thickening and left axilla lymphadenopathy will benefit from biopsy surgery recommend the patient to follow-up with her own breast surgeon Sooner than later for biopsy to confirm her underlying condition and subsequent appropriate treatment 3patient currently on vancomycin that can be switched to oral Doxy/Zyvox on discharge Dictation was produced using [employer] software. please excuse any grammatical, word or spelling errors. Time with Patient: Less than 30
--- NOTE | 2025-03-19 13:05 | P.PN ---
Subjective Progress Note Date: 03/18/25 Principal diagnosis: Reason for follow-up is left mastitis Patient is a 35-year-old female with multiple comorbidities including diabetes mellitus hypertension seizure disorder end-stage renal disease on dialysis presented to hospital with shortness of breath ID consult because of left breast pain concerning for mastitis. On today's evaluation that is 03/18/2025, Patient is afebrile this morning patient denies having any chest pain shortness of breath or cough, the patient is currently on room air, patient denies any abdominal pain no diarrhea no nausea no vomiting pain to the left breast has decreased and no drainage. No new lab has been obtained today Objective - Vital Signs Vital signs: Vital Signs Temp 99 F 03/18/25 06:57 Pulse 73 03/18/25 08:15 Resp 17 03/18/25 08:15 BP 167/89 03/18/25 06:57 Pulse Ox 100 03/18/25 09:06 FiO2 24 03/14/25 08:42 Intake & Output 03/17/25 03/18/25 03/18/25 18:59 06:59 18:59 Intake Total 500 2191 Output Total 9500 0 Balance -9000 2191 0 Weight 75.5 kg Intake: Intake, IV Titration 500 Amount Vancomycin 1,500 mg In 500 Sodium Chloride 0.9% 500 ml 500 ml @ 167 mls/hr IVPB ONCE ONE Rx#: [id number] Oral 1691 Hemodialysis 500 Output: Stool 0 Hemodialysis 5000 Hemodialysis Net Amount 4500 Other: Voiding Method Toilet Toilet # Voids 3 4 - Exam GENERAL DESCRIPTION: Middle-age female lying in bed in no distress RESPIRATORY SYSTEM: Unlabored breathing , decreased breath sounds at bases HEART: S1 S2 regular rate and rhythm , ABDOMEN: Soft , no tenderness EXTREMITIES: No edema feet - Labs CBC & Chem 7: 03/14/25 06:42 03/14/25 06:42 Labs: Abnormal Lab Results - Last 24 Hours (Table) 03/17/25 03/18/25 03/18/25 Range/Units 16:58 06:15 06:55 POC Glucose (mg/dL) 174 H 185 H 192 H (70-110) mg/dL 03/18/25 Range/Units 11:31 POC Glucose (mg/dL) 160 H (70-110) mg/dL Assessment and Plan (1) Mastitis, left, acute Status: Acute Code(s): N61.0 - MASTITIS WITHOUT ABSCESS SNOMED Code(s): 79658362 Plan: 1patient complaining of pain to the left breast area with some tenderness and currently some drainage concerning for mastitis likely from gram-positive's control in this patient with a history of end-stage renal disease will need to cover for more resistant pathogen such as MRSA 2- breast ultrasound did show skin thickening and left axilla lymphadenopathy will benefit from biopsy surgery recommend the patient to follow-up with her own breast surgeon Sooner than later for biopsy to confirm her underlying condition and subsequent appropriate treatment 3patient did have SSRI interacting with Zyvox hence was recommended 10-day course of oral doxycycline on discharge this was discussed with admitting physician working on discharge Dictation was produced using [employer] dictation software. please excuse any grammatical, word or spelling errors. Time with Patient: Less than 30
== END 2025-03-18 15:02 | disposition home or self-care (01) | DRG 291 ==
LOC: EC 13:07 → 3SCARD 17:22 → 4SSUR 03-14 19:47
PROVIDERS: ADMIT Internal Medicine; ATTEND Internal Medicine
PROC: 5A1D70Z Performance of Urinary Filtration, Intermittent, Less than 6 Hours Per Day (ICD-10-PCS; principal; 2025-02-26)
DX: I13.2 Hypertensive heart and chronic kidney disease with heart failure and with stage 5 chronic kidney disease, or end stage renal disease (principal); I50.33 Acute on chronic diastolic (congestive) heart failure; N18.6 End stage renal disease; D63.1 Anemia in chronic kidney disease; Z99.2 Dependence on renal dialysis; E10.43 Type 1 diabetes mellitus with diabetic autonomic (poly)neuropathy; G40.909 Epilepsy, unspecified, not intractable, without status epilepticus; E03.9 Hypothyroidism, unspecified; E87.1 Hypo-osmolality and hyponatremia; E10.65 Type 1 diabetes mellitus with hyperglycemia; E10.42 Type 1 diabetes mellitus with diabetic polyneuropathy; E10.22 Type 1 diabetes mellitus with diabetic chronic kidney disease; E10.649 Type 1 diabetes mellitus with hypoglycemia without coma; Z79.4 Long term (current) use of insulin; F17.200 Nicotine dependence, unspecified, uncomplicated; R06.89 Other abnormalities of breathing; M89.8X9 Other specified disorders of bone, unspecified site; E07.9 Disorder of thyroid, unspecified; M79.89 Other specified soft tissue disorders; N61.0 Mastitis without abscess; E87.5 Hyperkalemia; K31.84 Gastroparesis; K59.00 Constipation, unspecified; Z79.890 Hormone replacement therapy; Z79.82 Long term (current) use of aspirin; Z88.6 Allergy status to analgesic agent; Z88.5 Allergy status to narcotic agent; Z88.8 Allergy status to other drugs, medicaments and biological substances; Z91.119 Patient's noncompliance with dietary regimen due to unspecified reason; Z86.73 Personal history of transient ischemic attack (TIA), and cerebral infarction without residual deficits; Z79.84 Long term (current) use of oral hypoglycemic drugs
CPT/HCPCS: 36415; 71045; 71046; 80048; 80051; 80053; 80202; 82009; 82565; 82803; 82947; 83036; 83605; 83735; 83880; 84100; 84132; 84484; 84520; 85025; 85027; 85610; 85730; 86140; 86706; 87340; 87636; 90935; 93005; 94640; 94760; 96374; 96376; 99291

== ENCOUNTER 2025-04-16 07:24 | Inpatient (IN) | payer MEDICARE ==
--- NOTE | 2025-04-16 07:36 | ED ---
General Adult HPI - General Chief complaint: Shortness of Breath Stated complaint: Kidney issues Time Seen by Provider: 04/16/25 07:25 Source: patient, EMS, RN notes reviewed, old records reviewed Mode of arrival: EMS - History of Present Illness Initial comments: This is a 35-year-old female with past medical history significant for diabetes hypertension and renal failure. Patient was post to have dialysis later today at 230 but she was having difficulty breathing so she called the ambulance to come in. Patient did not take her high blood pressure medications. Patient s tates she has had no chest pain or palpitations but she does have shortness of breath. Patient denies any abdominal pain patient has nausea vomiting diarrhea. Patient does states she has a mild headache. Patient denies any numbness or weakness. Patient Nuys any injury or trauma. - Related Data Home Medications Medication Instructions Recorded Confirmed Docusate [Colace] 100 mg PO DAILY@79902/05/24 02/26/25 Lidocaine 4% Patch 1 patch TOPICAL DAILY@79902/05/24 02/26/25 Magnesium Hydroxide [Milk of 7,200 mg PO DAILY PRN 02/05/24 02/26/25 Magnesia Concentrate] Acetaminophen [Tylenol] 650 mg PO Q4H PRN 02/18/24 02/26/25 Biotene Dry Mouth/Throat 10 ml PO BID PRN 02/18/24 02/26/25 Levothyroxine Sodium [Synthroid] 175 mcg PO DAILY@59908/14/24 02/26/25 Metoclopramide [Reglan] 5 mg PO AC-TID PRN 08/14/24 02/26/25 Pantoprazole [Protonix] 40 mg PO DAILY@59908/14/24 02/26/25 Sertraline [Zoloft] 200 mg PO DAILY@79908/14/24 02/26/25 Ondansetron Odt [Zofran ODT] 4 mg PO Q8HR PRN 11/02/24 02/26/25 Folic Acid/Vit B Complex and C 0.8 mg PO DAILY 12/20/24 02/26/25 [Davina-Mayte Tablet] Insulin Lispro [humaLOG Kwikpen] 8 unit SQ AC-TID 01/22/25 02/26/25 Insulin Lispro [humaLOG Kwikpen] See Protocol SQ AC-TID 01/22/25 02/26/25 cloNIDine HCL [Catapres] 0.3 mg PO TID 01/22/25 02/26/25 ALPRAZolam [Xanax] 0.25 mg PO BID PRN 02/26/25 02/26/25 Divalproex Sodium [Depakote] 500 mg PO BID@0800,1700 02/26/25 02/26/25 Lidocaine 5% Cream 1 applic TOPICAL MOTUWETHSA 02/26/25 02/26/25 Methoxy Peg-Epoetin Beta [Mircera] 100 mcg SQ Q14D 02/26/25 02/26/25 Previous Rx's Medication Instructions Recorded Ipratropium-Albuterol Nebulize 3 ml INHALATION RT-TID PRN each 02/14/24 [Duoneb 0.5 mg-3 mg/3 ml Soln] polyethylene glycoL 3350 [Miralax] 17 gm PO AC-LUNCH #527 gm 02/14/24 Melatonin 1 mg PO HS tab 02/25/24 Loratadine [Claritin] 5 mg PO DAILY tab 03/30/24 Aspirin 81 mg PO DAILY@0800 #30 tab 05/18/24 Famotidine [Pepcid] 20 mg PO BID #60 tab 07/11/24 Colchicine [Colcrys] 0.3 mg PO DAILY #15 each 09/23/24 Atorvastatin [Lipitor] 40 mg PO HS #0 11/23/24 oxyCODONE-APAP 10-325MG [Percocet 1 tab PO Q4HR PRN #18 tab 11/23/24 10-325 mg] traZODone HCL [Desyrel] 50 mg PO HS #20 tab 01/01/25 Isosorbide Mononitrate ER [Imdur] 120 mg PO DAILY #60 tab 01/02/25 NIFEdipine XL [Procardia XL] 60 mg PO BID 30 Days #60 tab 01/02/25 Gabapentin [Neurontin] 100 mg PO BID 30 Days #60 cap 01/03/25 Linagliptin [Tradjenta] 5 mg PO DAILY #30 tab 01/03/25 Butalb/APAP/Caff 50-325-40Mg 1 tab PO Q4HR PRN #12 tab 01/26/25 [Fioricet 50-325-40] carvediloL [Coreg] 50 mg PO BID #120 tablet 02/15/25 Calcium Acetate [PhosLo] 1,334 mg PO TID-W/MEALS 30 Days 02/19/25 #360 tab Ipratropium-Albuterol Nebulize 3 ml INHALATION RT-TID #100 each 02/19/25 [Duoneb 0.5 mg-3 mg/3 ml Soln] Benzonatate [Tessalon Perles] 200 mg PO TID PRN 7 Days #21 cap 03/18/25 Doxycycline [Vibramycin] 100 mg PO BID 10 Days #20 capsule 03/18/25 Insulin Glargine (Lantus) [Lantus 11 unit SQ BID #0 03/18/25 Vial] Allergies Allergy/AdvReac Type Severity Reaction Status Date / Time hydromorphone HCl Allergy Anaphylaxis Verified 04/16/25 07:31 [From Dilaudid] propoxyphene Allergy Rash/Hives Verified 04/16/25 07:31 [From Darvocet-N] tramadol Allergy Anaphylaxis Verified 04/16/25 07:31 ibuprofen [From Motrin] AdvReac unable to Verified 04/16/25 07:31 take due to kidney disease venom-honey bee AdvReac passes out Verified 04/16/25 07:31 [bee venom (honey bee)] Review of Systems ROS Statement: Those systems with pertinent positive or pertinent negative responses have been documented in the HPI. ROS Other: All systems not noted in ROS Statement are negative. 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 Past Anesthesia/Blood Transfusion Reactions: Previous Problems w/ Anesthesia Additional Past Anesthesia/Blood Transfusion Reaction / Comment(s): confusion Past Psychological History: Anxiety, Depression Smoking Status: Current every day smoker Past Alcohol Use History: None Reported Past Drug Use History: Marijuana - Past Family History Father History Unknown: Yes Family Medical History: Unable to Obtain Mother History Unknown: Yes Family Medical History: No Reported History Grandfather History Unknown: Yes Family Medical History: Coronary Artery Disease (CAD) Additional Family Medical History / Comment(s): Diabetes mellitus type 2 General Exam - General Exam Comments Initial Comments: GENERAL: Patient is well-developed and well-nourished. Patient is nontoxic and well-hydrated and is in mild distress. ENT: Neck is soft and supple. No significant lymphadenopathy is noted. Oropharynx is clear. Moist mucous membranes. Neck has full range of motion without eliciting any pain. EYES: The sclera were anicteric and conjunctiva were pink and moist. Extraocular movements were intact and pupils were equal round and reactive to light. Eyelids were unremarkable. PULMONARY: Patient has crackles bilateral bases CARDIOVASCULAR: There is a regular rate and rhythm without any murmurs gallops or rubs. ABDOMEN: Soft and nontender with normal bowel sounds. SKIN: Skin is clear with no lesions or rashes and otherwise unremarkable. NEUROLOGIC: Patient is alert and oriented x3. Cranial nerves II through XII are grossly intact. Motor and sensory are also intact. Normal speech, volume and content. Symmetrical smile. MUSCULOSKELETAL: Normal extremities with adequate strength and full range of motion. LYMPHATICS: No significant lymphadenopathy is noted PSYCHIATRIC: Normal psychiatric evaluation. Course Vital Signs 04/16/25 04/16/25 04/16/25 07:26 07:52 08:32 Temperature 98.5 F Pulse Rate 90 89 Respiratory 18 18 Rate Blood Pressure 204/113 205/127 O2 Sat by Pulse 100 100 99 Oximetry 04/16/25 04/16/25 09:30 09:48 Temperature Pulse Rate 85 Respiratory 18 Rate Blood Pressure 201/116 201/116 O2 Sat by Pulse 98 Oximetry Medical Decision Making - Medical Decision Making EKG is interpreted by myself. EKG shows a sinus rhythm at 80 bpm CA interval 142 QRS is 94 QT interval 364 QTc is 4 9. Patient's EKG shows no ST segment elevation or depression. Was pt. sent in by a medical professional or institution ([facility], [facility], urgent care, hospital, or jail...) When possible be specific @ -No Did you speak to anyone other than the patient for history (EMS, parent, family, police, friend...)? What history was obtained from this source @ -No Did you review nursing and triage notes (agree or disagree)? Why? @ -I reviewed and agree with nursing and triage notes Were old charts reviewed (outside hosp., previous admission, EMS record, old EKG, old radiological studies, urgent care reports/EKG's, jail records)? Report findings @ -No old charts were reviewed Differential Diagnosis? @ -Differential Dyspnea: Coronary syndrome, arrhythmia, tamponade, asthma, COPD, pulmonary embolism, pneumonia, pneumothorax, pulmonary effusion, anaphylaxis, diabetic ketoacidosis, flailed chest, pulmonary contusion, diaphragmatic rupture, anemia, neuromuscular, this is not meant to be an all-inclusive list. EKG interpreted by me (3pts min.). @ -As above X-rays interpreted by me (1pt min.). @ -Chest x-ray shows pulmonary edema CT interpreted by me (1pt min.). @ -None done U/S interpreted by me (1pt. min.). @ -None done What testing was considered but not performed or refused? (CT, X-rays, U/S, labs)? Why? @ -None What meds were considered but not given or refused? Why? @ -None Did you discuss the management of the patient with other professionals (professionals i.e. [facility], [facility], lab, RT, psych nurse, group social worker, groundsman, teacher, chief sustainability officer, case folder)? Give summary @ -I spoke with [facility] hospice and they agreed to admit the patient admit the patient wrote admitting orders Was smoking cessation discussed for >3mins.? @ -No Was critical care preformed (if so, how long)? @ -35 minutes Were there social determinants of health that impacted care today? How? (Homelessness, low income, unemployed, alcoholism, drug addiction, transportation, low edu. Level, literacy, decrease access to med. care, [facility], rehab)? @ -No Was there de-escalation of care discussed even if they declined (Discuss DNR or withdrawal of care, Hospice)? DNR status @ -No What co-morbidities impacted this encounter? (DM, HTN, Smoking, COPD, CAD, Cancer, CVA, ARF, Chemo, Hep., AIDS, mental health diagnosis, sleep apnea, morbid obesity)? @ -None Was patient admitted / discharged? Hospital course, mention meds given and route, prescriptions, significant lab abnormalities, going to OR and other pertinent info. @ -Patient's potassium was elevated patient was given calcium chloride 1 amp and given Lokelma. Patient was post get dialyzed this afternoon however I spoke with Dr. Lim and she was going to set up dialysis. Patient was also given nausea meds as well as pain meds for her headache. Undiagnosed new problem with uncertain prognosis? @ -No Drug Therapy requiring intensive monitoring for toxicity (Heparin, Nitro, Insulin, Cardizem)? @ -No Were any procedures done? @ -No Diagnosis/symptom? @ -Hyperkalemia Acute, or Chronic, or Acute on Chronic? @ -Acute Uncomplicated (without systemic symptoms) or Complicated (systemic symptoms)? @ -Complicated Side effects of treatment? @ -No Exacerbation, Progression, or Severe Exacerbation? @ -No Poses a threat to life or bodily function? How? (Chest pain, [place], [place], pneumonia, PE, COPD, DKA, ARF, appy, cholecystitis, CVA, Diverticulitis, Homicidal, Suicidal, threat to staff... and all critical care pts) @ -Yes this could lead to arrhythmias and Diagnosis/symptom? @ -Acute pulmonary edema Acute, or Chronic, or Acute on Chronic? @ -Acute Uncomplicated (without systemic symptoms) or Complicated (systemic symptoms)? @ -Complicated Side effects of treatment? @ -None Exacerbation, Progression, or Severe Exacerbation] @ -No Poses a threat to life or bodily function? @ -Yes this could lead to hypoxia and endorgan dysfunction - Lab Data Result diagrams: 04/16/25 07:57 04/16/25 07:57 Lab Results 04/16/25 04/16/25 Range/Units 07:57 07:57 WBC 10.44 H (4.50-10.00) 10*3/uL RBC 3.51 L (4.10-5.20) 10*6/uL Hgb 11.1 L (12.0-15.0) g/dL Hct 33.2 L (37.2-46.3) % MCV 94.6 D (80.0-97.0) fL MCH 31.6 (27.0-32.0) pg MCHC 33.4 (32.0-37.0) g/dL Plt Count 209 (140-440) 10*3/uL MPV 11.2 (9.5-12.2) fL Immature Gran % (Auto) 0.5 % Neutrophils % 83.7 % Lymphocytes % 7.9 % Monocytes % 2.9 % Eosinophils % 4.1 % Basophils % 0.9 % Immature Gran # 0.05 H (0.00-0.04) 10*3/uL Neutrophils # 8.75 H (1.80-7.70) 10*3/uL Lymphocytes # 0.82 L (0.90-5.00) 10*3/uL Monocytes # 0.30 (0.20-1.00) 10*3/uL Eosinophils # 0.43 H (0.04-0.35) 10*3/uL Basophils # 0.09 (0.00-0.10) 10*3/uL Sodium 131 L (137-145) mmol/L Potassium 6.3 H* (3.5-5.1) mmol/L Chloride 90 L (98-107) mmol/L Carbon Dioxide 23 (22-30) mmol/L Anion Gap 18 mmol/L BUN 95 H (7-17) mg/dL Creatinine 6.82 H (0.52-1.04) mg/dL Est GFR (CKD-EPI)AfAm 8 (>60 ml/min/1.73 sqM) Est GFR (CKD-EPI)NonAf 7 (>60 ml/min/1.73 sqM) Glucose 258 H (74-99) mg/dL Calcium 9.2 (8.4-10.2) mg/dL Magnesium 1.8 (1.6-2.3) mg/dL Total Bilirubin 1.0 (0.2-1.3) mg/dL AST 113 H (14-36) U/L ALT 98 H (4-34) U/L Alkaline Phosphatase 180 H (38-126) U/L NT-Pro-B Natriuret Pep [id number] pg/mL Total Protein 7.7 (6.3-8.2) g/dL Albumin 4.8 (3.5-5.0) g/dL Valproic Acid 12.8 ug/mL Disposition Clinical Impression: Hyperkalemia, Acute pulmonary edema Disposition: ADMITTED IP TO THIS HOSP Referrals: Rush Marroquin MD [Primary Care Provider] - 1-2 days Time of Disposition: 09:56
[2025-04-16] MEDS: hydrALAZINE HCL 20 MG/ML 1 ML VIAL IVP STA ×2 (07:59→10:39)
[2025-04-16 08:17] LABS: Basophils # (A) 0.09 10*3/uL (0.00-0.10); Basophils % (A) 0.9 %; Eosinophils # (A) 0.43 10*3/uL (0.04-0.35); Eosinophils % (A) 4.1 %; HCT 33.2 % (37.2-46.3); HGB 11.1 g/dL (12.0-15.0); Lymphocytes # (A) 0.82 10*3/uL (0.90-5.00); Lymphocytes % (A) 7.9 %; MCH 31.6 pg (27.0-32.0); MCHC 33.4 g/dL (32.0-37.0); Mean Platelet Volume 11.2 fL (9.5-12.2); Monocytes % (A) 2.9 %; Neutrophils # (A) 8.75 10*3/uL (1.80-7.70); Neutrophils % (A) 83.7 %; Platelet Count 209 10*3/uL (140-440); RBC 3.51 10*6/uL (4.10-5.20); RDW 16.3 % (11.5-14.5); WBC 10.44 10*3/uL (4.50-10.00)
--- NOTE | 2025-04-16 08:26 | XR ---
EXAMINATION TYPE: XR chest 2V DATE OF EXAM: 04/16/2025 8:09 AM COMPARISON: 03/16/2025 CLINICAL INDICATION: Female, 35 years old with history of Difficulty breathing , TECHNIQUE: XR chest 2V view(s) obtained. FINDINGS: The heart size is normal. The pulmonary vasculature is prominent. Diffuse increased lung markings are present bilaterally. Correlate for pulmonary edema. Differential could include bronchitis or pneumonia. Follow-up recommended IMPRESSION: 1. Diffuse bilateral lung infiltrates. Correlate correlate for pulmonary edema or infection [facility], , 04/16/2025 8:23 AM
[2025-04-16 08:34] LABS: MCV 94.6 fL (80.0-97.0)
[2025-04-16 08:38] LABS: ALT 98 U/L (4-34); AST 113 U/L (14-36); African American GFR (CKD) 8 (>60 ml/min/1.73 sqM); Albumin 4.8 g/dL (3.5-5.0); Alkaline Phosphatase 180 U/L (38-126); Anion Gap 18 mmol/L; Blood Urea Nitrogen 95 mg/dL (7-17); Calcium 9.2 mg/dL (8.4-10.2); Carbon Dioxide 23 mmol/L (22-30); Chloride 90 mmol/L (98-107); Glucose 258 mg/dL (74-99); Magnesium 1.8 mg/dL (1.6-2.3); Non-African American GFR(CKD) 7 (>60 ml/min/1.73 sqM); Sodium 131 mmol/L (137-145); Total Protein 7.7 g/dL (6.3-8.2)
[2025-04-16] MEDS: ASPIRIN 81 MG PO STA (08:41)
[2025-04-16] MEDS: NITROGLYCERIN OINT 1 INCH/GM PACKET TOPICAL STA (08:42)
[2025-04-16 08:43] LABS: Valproic Acid (Depakene) 12.8 ug/mL
[2025-04-16] MEDS: ACETAMINOPHEN IV (For NPO) 1,000 MG in EMPTY BAG 1 BAG IVPB STA (08:47)
[2025-04-16] MEDS: ONDANSETRON 4 MG/2 ML VIAL IVP STA (09:08)
[2025-04-16 09:15] LABS: Potassium 6.3 mmol/L (3.5-5.1)
[2025-04-16 09:16] LABS: NT-Pro-B-Type Natriuretic Pept 105000 pg/mL
[2025-04-16] MEDS: SODIUM ZIRCONIUM CYCLOSILICATE 10 GM PACKET PO ONE (09:45)
[2025-04-16] MEDS: CALCIUM CHLORIDE 100 MG/ML 10 ML SYRINGE IVP STA (09:46)
[2025-04-16] MEDS: INSULIN REGULAR 100 UNIT/ML VIAL (IV) IV ONE (10:17)
[2025-04-16] MEDS: DEXTROSE 50% SYRINGE 50 ML IVP STA (10:19)
[2025-04-16] MEDS: SODIUM BICARB 8.4% 50 ML SYR (1 MEQ/ML) IV STA (10:19)
--- NOTE | 2025-04-16 11:23 | P.HPIM ---
History of Present Illness Patient is 35-year-old female coming complaint of shortness of breath found to have pulm edema. Patient usually uses 2 and half to 3 L of oxygen presently on 2-1/2 to 3 L oxygen. Patient is on hemodialysis and did not miss her hemodi alysis as per the patient. Patient blood pressure is significantly higher patient is also complaining of chest pain which appears to be musculoskeletal but has a pleuritic component and patient had a cardiac workup in the recent past, had a cardia catheterization which did not show any atherosclerotic occlusive disease. Patient had echocardiogram showed normal ejection fraction although does have left ventricular hypertrophy from uncontrolled blood pressure. Patient is complaining of headache. Which is chronic for her does take Percocet at home and requesting for Percocet REVIEW OF SYSTEMS: All other systems are negative except those mentioned in the HPI PHYSICAL EXAMINATION: GENERAL: The patient is alert and oriented x3, not in any acute distress. Well developed, well nourished. HEENT: Pupils are round and equally reacting to light. EOMI. No scleral icterus. No conjunctival pallor. Normocephalic, atraumatic. No pharyngeal erythema. No thyromegaly. CARDIOVASCULAR: S1 and S2 present. No murmurs, rubs, or gallops. PULMONARY: Chest is clear to auscultation, no wheezing or crackles. ABDOMEN: Soft, nontender, nondistended, normoactive bowel sounds. No palpable organomegaly. MUSCULOSKELETAL: No joint swelling or deformity. EXTREMITIES: No cyanosis, clubbing, or pedal edema. NEUROLOGICAL: Gross neurological examination did not reveal any focal deficits. SKIN: No rashes. Assessment and plan -Acute on chronic hypoxic respiratory failure secondary to pulmonary edema. Patient will need hemodialysis today patient last hemodialysis was on Wednesday as per the patient patient did not miss any hemodialysis nephrology was consulted. - Hyperkalemia secondary to end-stage renal disease: Patient received Lokelma IV insulin. Patient will need hemodialysis as well which will bring down the potassium patient last potassium was 6.3 there is no repeat yet. - Mild nonspecific elevation of AST and ALT will repeat liver enzymes tomorrow again - Type 2 diabetes mellitus - Uncontrolled hypertension or accelerated hypertension as patient did not receive her medications once verified these medications will be reordered - Seizure disorder - Hypothyroidism - Gastroesophageal reflux disease - Chronic pain: Patient's chest pain is a part of chronic pain I do not believe patient has a pulmonary embolism or coronary artery disease. 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 Past Anesthesia/Blood Transfusion Reactions: Previous Problems w/ Anesthesia Additional Past Anesthesia/Blood Transfusion Reaction / Comment(s): confusion Past Psychological History: Anxiety, Depression Smoking Status: Current every day smoker Past Alcohol Use History: None Reported Past Drug Use History: Marijuana - Past Family History Father History Unknown: Yes Family Medical History: Unable to Obtain Mother History Unknown: Yes Family Medical History: No Reported History Grandfather History Unknown: Yes Family Medical History: Coronary Artery Disease (CAD) Additional Family Medical History / Comment(s): Diabetes mellitus type 2 Medications and Allergies Home Medications Medication Instructions Recorded Confirmed Type Docusate [Colace] 100 mg PO DAILY@0800 02/05/24 02/26/25 History Lidocaine 4% Patch 1 patch TOPICAL DAILY@79902/05/24 02/26/25 History Magnesium Hydroxide [Milk of 7,200 mg PO DAILY PRN 02/05/24 02/26/25 History Magnesia Concentrate] Ipratropium-Albuterol Nebulize 3 ml INHALATION RT-TID PRN each 02/14/24 02/26/25 Rx [Duoneb 0.5 mg-3 mg/3 ml Soln] polyethylene glycoL 3350 [Miralax] 17 gm PO AC-LUNCH #527 gm 02/14/24 02/26/25 Rx Acetaminophen [Tylenol] 650 mg PO Q4H PRN 02/18/24 02/26/25 History Biotene Dry Mouth/Throat 10 ml PO BID PRN 02/18/24 02/26/25 History Melatonin 1 mg PO HS tab 02/25/24 02/26/25 Rx Loratadine [Claritin] 5 mg PO DAILY tab 03/30/24 02/26/25 Rx Aspirin 81 mg PO DAILY@0800 #30 tab 05/18/24 02/26/25 Rx Famotidine [Pepcid] 20 mg PO BID #60 tab 07/11/24 02/26/25 Rx Levothyroxine Sodium [Synthroid] 175 mcg PO DAILY@0600 08/14/24 02/26/25 History Metoclopramide [Reglan] 5 mg PO AC-TID PRN 08/14/24 02/26/25 History Pantoprazole [Protonix] 40 mg PO DAILY@0600 08/14/24 02/26/25 History Sertraline [Zoloft] 200 mg PO DAILY@0800 08/14/24 02/26/25 History Colchicine [Colcrys] 0.3 mg PO DAILY #15 each 09/23/24 02/26/25 Rx Ondansetron Odt [Zofran ODT] 4 mg PO Q8HR PRN 11/02/24 02/26/25 History Atorvastatin [Lipitor] 40 mg PO HS #0 11/23/24 02/26/25 Rx oxyCODONE-APAP 10-325MG [Percocet 1 tab PO Q4HR PRN #18 tab 11/23/24 02/26/25 Rx 10-325 mg] Folic Acid/Vit B Complex and C 0.8 mg PO DAILY 12/20/24 02/26/25 History [Davina-Mayte Tablet] traZODone HCL [Desyrel] 50 mg PO HS #20 tab 01/01/25 02/26/25 Rx Isosorbide Mononitrate ER [Imdur] 120 mg PO DAILY #60 tab 01/02/25 02/26/25 Rx NIFEdipine XL [Procardia XL] 60 mg PO BID 30 Days #60 tab 01/02/25 02/26/25 Rx Gabapentin [Neurontin] 100 mg PO BID 30 Days #60 cap 01/03/25 02/26/25 Rx Linagliptin [Tradjenta] 5 mg PO DAILY #30 tab 01/03/25 02/26/25 Rx Insulin Lispro [humaLOG Kwikpen] 8 unit SQ AC-TID 01/22/25 02/26/25 History Insulin Lispro [humaLOG Kwikpen] See Protocol SQ AC-TID 01/22/25 02/26/25 History cloNIDine HCL [Catapres] 0.3 mg PO TID 01/22/25 02/26/25 History Butalb/APAP/Caff 50-325-40Mg 1 tab PO Q4HR PRN #12 tab 01/26/25 02/26/25 Rx [Fioricet 50-325-40] carvediloL [Coreg] 50 mg PO BID #120 tablet 02/15/25 02/26/25 Rx Calcium Acetate [PhosLo] 1,334 mg PO TID-W/MEALS 30 Days 02/19/25 02/26/25 Rx #360 tab Ipratropium-Albuterol Nebulize 3 ml INHALATION RT-TID #100 each 02/19/25 02/26/25 Rx [Duoneb 0.5 mg-3 mg/3 ml Soln] ALPRAZolam [Xanax] 0.25 mg PO BID PRN 02/26/25 02/26/25 History Divalproex Sodium [Depakote] 500 mg PO BID@0800,1700 02/26/25 02/26/25 History Lidocaine 5% Cream 1 applic TOPICAL MOTUWETHSA 02/26/25 02/26/25 History Methoxy Peg-Epoetin Beta [Mircera] 100 mcg SQ Q14D 02/26/25 02/26/25 History Benzonatate [Tessalon Perles] 200 mg PO TID PRN 7 Days #21 cap 03/18/25 Rx Doxycycline [Vibramycin] 100 mg PO BID 10 Days #20 capsule 03/18/25 Rx Insulin Glargine (Lantus) [Lantus 11 unit SQ BID #0 03/18/25 02/26/25 Rx Vial] Allergies Allergy/AdvReac Type Severity Reaction Status Date / Time hydromorphone HCl Allergy Anaphylaxis Verified 04/16/25 07:31 [From Dilaudid] propoxyphene Allergy Rash/Hives Verified 04/16/25 07:31 [From Darvocet-N] tramadol Allergy Anaphylaxis Verified 04/16/25 07:31 ibuprofen [From Motrin] AdvReac unable to Verified 04/16/25 07:31 take due to kidney disease venom-honey bee AdvReac passes out Verified 04/16/25 07:31 [bee venom (honey bee)] Physical Exam Vitals: Vital Signs Temp Pulse Resp BP Pulse Ox 04/16/25 10:15 208/105 04/16/25 09:48 85 18 201/116 98 04/16/25 09:30 201/116 04/16/25 08:32 89 18 205/127 99 04/16/25 07:52 100 04/16/25 07:26 98.5 F 90 18 204/113 100 Intake and Output 04/15/25 04/16/25 04/16/25 22:59 06:59 14:59 Other: Weight 68.039 kg Results CBC & Chem 7: 04/16/25 07:57 04/16/25 07:57 Labs: Abnormal Lab Results - Last 24 Hours (Table) 04/16/25 04/16/25 Range/Units 07:57 07:57 WBC 10.44 H (4.50-10.00) 10*3/uL RBC 3.51 L (4.10-5.20) 10*6/uL Hgb 11.1 L (12.0-15.0) g/dL Hct 33.2 L (37.2-46.3) % Immature Gran # 0.05 H (0.00-0.04) 10*3/uL Neutrophils # 8.75 H (1.80-7.70) 10*3/uL Lymphocytes # 0.82 L (0.90-5.00) 10*3/uL Eosinophils # 0.43 H (0.04-0.35) 10*3/uL Sodium 131 L (137-145) mmol/L Potassium 6.3 H* (3.5-5.1) mmol/L Chloride 90 L (98-107) mmol/L BUN 95 H (7-17) mg/dL Creatinine 6.82 H (0.52-1.04) mg/dL Glucose 258 H (74-99) mg/dL AST 113 H (14-36) U/L ALT 98 H (4-34) U/L Alkaline Phosphatase 180 H (38-126) U/L
[2025-04-16] MEDS: cloNIDine HCL 0.1 MG TAB PO SCH (11:46)
[2025-04-16] MEDS: carvediloL 12.5 MG TAB PO SCH (11:46)
[2025-04-16 12:13] LABS: Glucose,Whole Blood 124 mg/dL (70-110)
--- NOTE | 2025-04-16 12:40 | P.NPCON ---
History of Present Illness - Reason for Consult end stage renal disease - History of Present Illness Patient is a 35-year-old female with end-stage renal disease maintained on hemodialysis 4 times a week. She is admitted to the hospital with complaints of shortness of breath. Patient states that she did not miss her treatment as outpatient however since she has not been feeling sick over the weekend she did admit to increased intake of fluids. Shortness of breath progressively worsened and therefore patient came into the ER. Blood pressure has been elevated in the 200 range with serum potassium at 6.3. No history of fever nausea vomiting or diarrhea. Blood sugar was 258. Patient will be dialyzed today. Past Medical History Past Medical History: Diabetes Mellitus, GERD/Reflux, Hypertension, Renal Disease, Seizure Disorder, Thyroid Disorder Additional Past Medical History / Comment(s): Neuropathy, last seizure 2020, gastroparesis, headaches with dialysis, states "fast heart rate" since giving ., receives Hemodialysis Wednesday- and Saturdays at 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 Past Anesthesia/Blood Transfusion Reactions: Previous Problems w/ Anesthesia Additional Past Anesthesia/Blood Transfusion Reaction / Comment(s): confusion Past Psychological History: Anxiety, Depression Smoking Status: Current every day smoker Past Alcohol Use History: None Reported Past Drug Use History: Marijuana - Past Family History Father History Unknown: Yes Family Medical History: Unable to Obtain Mother History Unknown: Yes Family Medical History: No Reported History Grandfather History Unknown: Yes Family Medical History: Coronary Artery Disease (CAD) Additional Family Medical History / Comment(s): Diabetes mellitus type 2 Medications and Allergies Home Medications Medication Instructions Recorded Confirmed Type Docusate [Colace] 100 mg PO DAILY@00 02/05/24 04/16/25 History Lidocaine 4% Patch 1 patch TOPICAL DAILY@0800 02/05/24 04/16/25 History Ipratropium-Albuterol Nebulize 3 ml INHALATION RT-TID PRN each 02/14/24 04/16/25 Rx [Duoneb 0.5 mg-3 mg/3 ml Soln] polyethylene glycoL 3350 [Miralax] 17 gm PO AC-LUNCH #527 gm 02/14/24 04/16/25 Rx Acetaminophen [Tylenol] 650 mg PO Q4H PRN 02/18/24 04/16/25 History Biotene Dry Mouth/Throat 10 ml PO BID PRN 02/18/24 04/16/25 History Melatonin 1 mg PO HS tab 02/25/24 04/16/25 Rx Loratadine [Claritin] 5 mg PO DAILY tab 03/30/24 04/16/25 Rx Aspirin 81 mg PO DAILY@0800 #30 tab 05/18/24 04/16/25 Rx Famotidine [Pepcid] 20 mg PO BID #60 tab 07/11/24 04/16/25 Rx Levothyroxine Sodium [Synthroid] 175 mcg PO DAILY@0600 08/14/24 04/16/25 History Sertraline [Zoloft] 200 mg PO DAILY@0800 08/14/24 04/16/25 History Atorvastatin [Lipitor] 40 mg PO HS #0 11/23/24 04/16/25 Rx Folic Acid/Vit B Complex and C 0.8 mg PO DAILY 12/20/24 04/16/25 History [Davina-Mayte Tablet] traZODone HCL [Desyrel] 50 mg PO HS #20 tab 01/01/25 04/16/25 Rx Isosorbide Mononitrate ER [Imdur] 120 mg PO DAILY #60 tab 01/02/25 04/16/25 Rx NIFEdipine XL [Procardia XL] 60 mg PO BID 30 Days #60 tab 01/02/25 04/16/25 Rx Gabapentin [Neurontin] 100 mg PO BID 30 Days #60 cap 01/03/25 04/16/25 Rx Linagliptin [Tradjenta] 5 mg PO DAILY #30 tab 01/03/25 04/16/25 Rx Insulin Lispro [humaLOG Kwikpen] 8 unit SQ AC-TID 01/22/25 04/16/25 History Insulin Lispro [humaLOG Kwikpen] See Protocol SQ AC-TID 01/22/25 04/16/25 History cloNIDine HCL [Catapres] 0.3 mg PO TID 01/22/25 04/16/25 History carvediloL [Coreg] 50 mg PO BID #120 tablet 02/15/25 04/16/25 Rx Calcium Acetate [PhosLo] 1,334 mg PO TID-W/MEALS 30 Days 02/19/25 04/16/25 Rx #360 tab Ipratropium-Albuterol Nebulize 3 ml INHALATION RT-TID #100 each 02/19/25 04/16/25 Rx [Duoneb 0.5 mg-3 mg/3 ml Soln] ALPRAZolam [Xanax] 0.25 mg PO BID PRN 02/26/25 04/16/25 History Divalproex Sodium [Depakote] 500 mg PO BID@0800,1700 02/26/25 04/16/25 History Lidocaine 5% Cream 1 applic TOPICAL MOTUWETHSA 02/26/25 04/16/25 History Methoxy Peg-Epoetin Beta [Mircera] 100 mcg SQ Q14D 02/26/25 04/16/25 History Insulin Glargine (Lantus) [Lantus 11 unit SQ BID #0 03/18/25 04/16/25 Rx Vial] oxyCODONE HCL/ACETAMINOPHEN 1 tab PO DAILY PRN 04/16/25 04/16/25 History [Percocet 10-325 mg] Allergies Allergy/AdvReac Type Severity Reaction Status Date / Time hydromorphone HCl Allergy Anaphylaxis Verified 04/16/25 07:31 [From Dilaudid] propoxyphene Allergy Rash/Hives Verified 04/16/25 07:31 [From Darvocet-N] tramadol Allergy Anaphylaxis Verified 04/16/25 07:31 ibuprofen [From Motrin] AdvReac unable to Verified 04/16/25 07:31 take due to kidney disease venom-honey bee AdvReac passes out Verified 04/16/25 07:31 [bee venom (honey bee)] Physical Exam Vitals: Vital Signs Temp Pulse Resp BP Pulse Ox 04/16/25 11:51 96 18 192/104 97 04/16/25 10:15 208/105 04/16/25 09:48 85 18 201/116 98 04/16/25 09:30 201/116 04/16/25 08:32 89 18 205/127 99 04/16/25 07:52 100 04/16/25 07:26 98.5 F 90 18 204/113 100 Intake and Output 04/15/25 04/16/25 04/16/25 22:59 06:59 14:59 Other: Weight 68.039 kg Patient is awake, comfortable, no acute distress Face is edematous Examination of the heart S1 and S2 Examination of the lungs bilateral breath sounds are heard Abdomen is soft nontender Examination of lower extremities shows 1+ edema 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 End-stage renal disease on hemodialysis on Wednesday schedule as outpatient 2. Volume overload 3. Hyperkalemia 4. Acute hypoxic respiratory failure secondary to volume overload Plan: Hemodialysis today with UF of about 4 L and repeat in a.m. Continue with antihypertensive medications Resume PhosLo with meals Thank you for the consultation. We will continue to follow the patient with you during her hospitalization.
[2025-04-16] MEDS: HEPARIN SODIUM,PORCINE 5,000 UNIT/ML 1 ML VIAL SQ SCH (17:18)
[2025-04-16] MEDS: DIVALPROEX 500 MG TABLET.DR PO SCH (17:18)
[2025-04-16] MEDS: CALCIUM ACETATE 667 MG TAB PO SCH (17:18)
[2025-04-16] MEDS: oxyCODONE-APAP 10-325MG 1 EACH TAB PO PRN (17:21)
[2025-04-16 17:59] LABS: Glucose,Whole Blood 227 mg/dL (70-110)
[2025-04-16 20:16] LABS: Glucose,Whole Blood 565 mg/dL (70-110)
[2025-04-16] MEDS: BUTALB/APAP/CAFF 50-325-40MG TAB PO PRN (20:30)
[2025-04-16] MEDS: INSULIN LISPRO (HumaLOG) 100 UNIT/ML 10 mL VL SQ SCH (20:30)
[2025-04-16] MEDS: hydrALAZINE HCL 20 MG/ML 1 ML VIAL IVP PRN (20:30)
[2025-04-16] MEDS: INSULIN GLARGINE (LANTUS) 100 UNIT/ML SYR SQ SCH (22:10)
[2025-04-16 23:20] LABS: Glucose,Whole Blood 433 mg/dL (70-110)
[2025-04-17] MEDS: INSULIN LISPRO (HumaLOG) 100 UNIT/ML 10 mL VL SQ ONE ×2 (01:23→17:32)
[2025-04-17] MEDS: ALPRAZolam 0.25 MG TAB PO PRN (03:41)
[2025-04-17] MEDS: traZODone HCL 50 MG TAB PO SCH (03:58)
[2025-04-17 06:07] LABS: Glucose,Whole Blood 118 mg/dL (70-110)
[2025-04-17 07:25] LABS: HCT 30.9 % (37.2-46.3); HGB 10.3 g/dL (12.0-15.0); MCH 32.4 pg (27.0-32.0); MCHC 33.3 g/dL (32.0-37.0); MCV 97.2 fL (80.0-97.0); Platelet Count 175 10*3/uL (140-440); RBC 3.18 10*6/uL (4.10-5.20); RDW 16.6 % (11.5-14.5)
[2025-04-17 07:37] LABS: Glucose,Whole Blood 129 mg/dL (70-110)
[2025-04-17 07:47] LABS: ALT 67 U/L (4-34); AST 44 U/L (14-36); African American GFR (CKD) 12 (>60 ml/min/1.73 sqM); Albumin 3.9 g/dL (3.5-5.0); Alkaline Phosphatase 124 U/L (38-126); Anion Gap 13 mmol/L; Blood Urea Nitrogen 54 mg/dL (7-17); Calcium 8.9 mg/dL (8.4-10.2); Carbon Dioxide 24 mmol/L (22-30); Chloride 97 mmol/L (98-107); Glucose 123 mg/dL (74-99); Non-African American GFR(CKD) 11 (>60 ml/min/1.73 sqM); Potassium 5.4 mmol/L (3.5-5.1); Sodium 134 mmol/L (137-145); Total Bilirubin 0.9 mg/dL (0.2-1.3); Total Protein 6.4 g/dL (6.3-8.2)
[2025-04-17] MEDS: INSULIN LISPRO (HumaLOG) 100 UNIT/ML 10 mL VL SQ SCH (07:59)
[2025-04-17] MEDS: LIDOCAINE-PRILOCAINE 2.5-2.5% CREAM 5 GM TUBE TOPICAL STA (08:44)
[2025-04-17] MEDS ORDERED: BENZOCAINE/MENTHOL LOZENG 1 EACH LOZENGE MUCOUS MEM PRN (11:38)
[2025-04-17 12:57] LABS: Glucose,Whole Blood 84 mg/dL (70-110)
[2025-04-17] MEDS: diphenhydrAMINE 50 MG/ML 1 ML VIAL IVP PRN (13:00)
[2025-04-17 14:48] LABS: Influenza A Not Detected (Not Detectd); Influenza B Not Detected (Not Detectd); RSV Not Detected (Not Detectd)
--- NOTE | 2025-04-17 16:22 | P.PN ---
Subjective Patient is seen for follow-up for end-stage renal disease. Seen on hemodialysis today Goal UF about 4.5 L Shortness of breath has improved significantly. Blood pressure has improved as well. 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 exam grossly intact - Labs CBC & Chem 7: 04/17/25 07:08 04/17/25 07:08 Labs: Abnormal Lab Results - Last 24 Hours (Table) 04/16/25 04/16/25 04/16/25 Range/Units 17:57 20:15 23:19 RBC (4.10-5.20) 10*6/uL Hgb (12.0-15.0) g/dL Hct (37.2-46.3) % MCV (80.0-97.0) fL MCH (27.0-32.0) pg Sodium (137-145) mmol/L Potassium (3.5-5.1) mmol/L Chloride (98-107) mmol/L BUN (7-17) mg/dL Creatinine (0.52-1.04) mg/dL Glucose (74-99) mg/dL POC Glucose (mg/dL) 227 H 565 H* 433 H (70-110) mg/dL AST (14-36) U/L ALT (4-34) U/L 04/17/25 04/17/25 04/17/25 Range/Units 06:06 07:08 07:08 RBC 3.18 L (4.10-5.20) 10*6/uL Hgb 10.3 L (12.0-15.0) g/dL Hct 30.9 L (37.2-46.3) % MCV 97.2 H (80.0-97.0) fL MCH 32.4 H (27.0-32.0) pg Sodium 134 L (137-145) mmol/L Potassium 5.4 H (3.5-5.1) mmol/L Chloride 97 L (98-107) mmol/L BUN 54 H (7-17) mg/dL Creatinine 4.95 H (0.52-1.04) mg/dL Glucose 123 H (74-99) mg/dL POC Glucose (mg/dL) 118 H (70-110) mg/dL AST 44 H (14-36) U/L ALT 67 H (4-34) U/L 04/17/25 Range/Units 07:35 RBC (4.10-5.20) 10*6/uL Hgb (12.0-15.0) g/dL Hct (37.2-46.3) % MCV (80.0-97.0) fL MCH (27.0-32.0) pg Sodium (137-145) mmol/L Potassium (3.5-5.1) mmol/L Chloride (98-107) mmol/L BUN (7-17) mg/dL Creatinine (0.52-1.04) mg/dL Glucose (74-99) mg/dL POC Glucose (mg/dL) 129 H (70-110) mg/dL AST (14-36) U/L ALT (4-34) U/L Assessment and Plan Assessment: 1. End-stage renal disease on hemodialysis on Wednesday schedule as outpatient 2. Volume overload 3. Hyperkalemia 4. Acute hypoxic respiratory failure secondary to volume overload, improved Plan: Hemodialysis today with UF of about 4-5L Continue with antihypertensive medications Continue with PhosLo with meals
[2025-04-17 17:07] LABS: Glucose,Whole Blood 406 mg/dL (70-110)
--- NOTE | 2025-04-17 18:25 | P.PN ---
Subjective Progress Note Date: 04/17/25 Patient is 35-year-old female coming complaint of shortness of breath found to have pulm edema. Patient usually uses 2 and half to 3 L of oxygen presently on 2-1/2 to 3 L oxygen. Patient is on hemodialysis and did not miss her hemodialysis as per the patient. Patient blood pressure is significantly higher patient is also complaining of chest pain which appears to be musculoskeletal but has a pleuritic component and patient had a cardiac workup in the recent past, had a cardia catheterization which did not show any atherosclerotic occlusive disease. Patient had echocardiogram showed normal ejection fraction although does have left ventricular hypertrophy from uncontrolled blood pressure. Patient is complaining of headache. Which is chronic for her does take Percocet at home and requesting for Percocet 04/17/2025 Patient is evaluated in follow-up on the cardiac unit. She underwent hemodia lysis yesterday had a net output of 4 L off. Repeat blood work today reveals a potassium level of 5.4 BUN of 54 creatinine of 4.95. Currently has excision saturation 100% on 3 L of oxygen via nasal cannula. Blood pressure is 168/101. Patient reports having multiple episodes of loose stools. States she is having some mild abdominal discomfort. Also having cough. Review of Systems Constitutional: Denied any fatigue denied any fever. Cardio vascular: denied any chest pain, palpitations Gastrointestinal: denied any nausea, vomiting, Reports diarrhea. Pulmonary: Denied any shortness of breath cough Neurologic denied any new focal deficits All inpatient medications were reviewed and appropriate changes in these medications as dictated in the interval history and assessment and plan. PHYSICAL EXAMINATION: GENERAL: The patient is alert and oriented x3, not in any acute distress. Well d eveloped, well nourished. HEENT: Pupils are round and equally reacting to light. EOMI. No scleral icterus. No conjunctival pallor. Normocephalic, atraumatic. No pharyngeal erythema. No thyromegaly. CARDIOVASCULAR: S1 and S2 present. No murmurs, rubs, or gallops. PULMONARY: Chest is clear to auscultation, no wheezing or crackles. ABDOMEN: Soft, LLQ tender, nondistended, normoactive bowel sounds. No palpable organomegaly. MUSCULOSKELETAL: No joint swelling or deformity. EXTREMITIES: No cyanosis, clubbing, or pedal edema. NEUROLOGICAL: Gross neurological examination did not reveal any focal deficits. SKIN: No rashes. Assessment and plan - Acute on chronic hypoxic respiratory failure secondary to pulmonary edema. - Hyperkalemia secondary to end-stage renal disease: Patient received Lokelma IV insulin. - Mild nonspecific elevation of AST and ALT will repeat liver enzymes tomorrow a gain - Diarrhea likely viral gastroenteritis - Type 2 diabetes mellitus - Uncontrolled hypertension or accelerated hypertension as patient did not receive her medications once verified these medications will be reordered - Seizure disorder - Hypothyroidism - Gastroesophageal reflux disease - Chronic pain: Patient's chest pain is a part of chronic pain I do not believe patient has a pulmonary embolism or coronary artery disease. Patient has recent cardiac catheterization which showed clean coronaries DVT prophylaxis: Patient will be started on subcutaneous heparin Hemodialysis per nephrology. Check C.Dif. Viral panel for RSV, Covid, influenza. Add albuterol PRN and cepacol,. The impression and plan of care has been dictated by Yeni Blackburn Nurse Practitioner as directed. Dr. Connie MD I have performed a history and physical examination and medical decision making of this patient, discussed the same with the dictator, and agree with the dictators assessment and plan as written, documented as a scribe. Based on total visit time, I have performed more than 50% of this visit. Objective - Vital Signs Vital signs: Vital Signs Temp 98.0 F 04/17/25 07:58 Pulse 69 04/17/25 07:58 Resp 15 04/17/25 07:58 BP 168/101 04/17/25 07:58 Pulse Ox 100 04/17/25 07:58 FiO2 Intake & Output 04/16/25 04/17/25 04/17/25 18:59 06:59 18:59 Intake Total 500 Output Total 8500 Balance -8000 Weight 68.039 kg 69.9 kg Intake: Hemodialysis 500 Output: Hemodialysis 4500 Hemodialysis Net Amount 4000 Other: Voiding Method Toilet Toilet - Labs CBC & Chem 7: 04/17/25 07:08 04/17/25 07:08 Labs: Abnormal Lab Results - Last 24 Hours (Table) 04/16/25 04/16/25 04/16/25 Range/Units 07:57 07:57 07:57 WBC 10.44 H (4.50-10.00) 10*3/uL RBC 3.51 L (4.10-5.20) 10*6/uL Hgb 11.1 L (12.0-15.0) g/dL Hct 33.2 L (37.2-46.3) % MCV (80.0-97.0) fL MCH (27.0-32.0) pg Immature Gran # 0.05 H (0.00-0.04) 10*3/uL Neutrophils # 8.75 H (1.80-7.70) 10*3/uL Lymphocytes # 0.82 L (0.90-5.00) 10*3/uL Eosinophils # 0.43 H (0.04-0.35) 10*3/uL Sodium 131 L (137-145) mmol/L Potassium 6.3 H* (3.5-5.1) mmol/L Chloride 90 L (98-107) mmol/L BUN 95 H (7-17) mg/dL Creatinine 6.82 H (0.52-1.04) mg/dL Glucose 258 H (74-99) mg/dL POC Glucose (mg/dL) (70-110) mg/dL Phosphorus 6.3 H (2.5-4.5) mg/dL AST 113 H (14-36) U/L ALT 98 H (4-34) U/L Alkaline Phosphatase 180 H (38-126) U/L 04/16/25 04/16/25 04/16/25 Range/Units 12:11 17:57 20:15 WBC (4.50-10.00) 10*3/uL RBC (4.10-5.20) 10*6/uL Hgb (12.0-15.0) g/dL Hct (37.2-46.3) % MCV (80.0-97.0) fL MCH (27.0-32.0) pg Immature Gran # (0.00-0.04) 10*3/uL Neutrophils # (1.80-7.70) 10*3/uL Lymphocytes # (0.90-5.00) 10*3/uL Eosinophils # (0.04-0.35) 10*3/uL Sodium (137-145) mmol/L Potassium (3.5-5.1) mmol/L Chloride (98-107) mmol/L BUN (7-17) mg/dL Creatinine (0.52-1.04) mg/dL Glucose (74-99) mg/dL POC Glucose (mg/dL) 124 H 227 H 565 H* (70-110) mg/dL Phosphorus (2.5-4.5) mg/dL AST (14-36) U/L ALT (4-34) U/L Alkaline Phosphatase (38-126) U/L 04/16/25 04/17/25 04/17/25 Range/Units 23:19 06:06 07:08 WBC (4.50-10.00) 10*3/uL RBC 3.18 L (4.10-5.20) 10*6/uL Hgb 10.3 L (12.0-15.0) g/dL Hct 30.9 L (37.2-46.3) % MCV 97.2 H (80.0-97.0) fL MCH 32.4 H (27.0-32.0) pg Immature Gran # (0.00-0.04) 10*3/uL Neutrophils # (1.80-7.70) 10*3/uL Lymphocytes # (0.90-5.00) 10*3/uL Eosinophils # (0.04-0.35) 10*3/uL Sodium (137-145) mmol/L Potassium (3.5-5.1) mmol/L Chloride (98-107) mmol/L BUN (7-17) mg/dL Creatinine (0.52-1.04) mg/dL Glucose (74-99) mg/dL POC Glucose (mg/dL) 433 H 118 H (70-110) mg/dL Phosphorus (2.5-4.5) mg/dL AST (14-36) U/L ALT (4-34) U/L Alkaline Phosphatase (38-126) U/L 04/17/25 04/17/25 Range/Units 07:08 07:35 WBC (4.50-10.00) 10*3/uL RBC (4.10-5.20) 10*6/uL Hgb (12.0-15.0) g/dL Hct (37.2-46.3) % MCV (80.0-97.0) fL MCH (27.0-32.0) pg Immature Gran # (0.00-0.04) 10*3/uL Neutrophils # (1.80-7.70) 10*3/uL Lymphocytes # (0.90-5.00) 10*3/uL Eosinophils # (0.04-0.35) 10*3/uL Sodium 134 L (137-145) mmol/L Potassium 5.4 H (3.5-5.1) mmol/L Chloride 97 L (98-107) mmol/L BUN 54 H (7-17) mg/dL Creatinine 4.95 H (0.52-1.04) mg/dL Glucose 123 H (74-99) mg/dL POC Glucose (mg/dL) 129 H (70-110) mg/dL Phosphorus (2.5-4.5) mg/dL AST 44 H (14-36) U/L ALT 67 H (4-34) U/L Alkaline Phosphatase (38-126) U/L Assessment and Plan Time with Patient: Less than 30
[2025-04-17 19:53] LABS: Glucose,Whole Blood 243 mg/dL (70-110)
[2025-04-18 05:57] LABS: Glucose,Whole Blood 165 mg/dL (70-110)
[2025-04-18 08:22] LABS: African American GFR (CKD) 16 (>60 ml/min/1.73 sqM); Anion Gap 12 mmol/L; Blood Urea Nitrogen 41 mg/dL (7-17); Calcium 9.1 mg/dL (8.4-10.2); Carbon Dioxide 26 mmol/L (22-30); Chloride 98 mmol/L (98-107); Glucose 179 mg/dL (74-99); Non-African American GFR(CKD) 14 (>60 ml/min/1.73 sqM); Sodium 136 mmol/L (137-145)
[2025-04-18 11:22] LABS: Glucose,Whole Blood 369 mg/dL (70-110)
[2025-04-18] MEDS: ALBUTEROL NEB (CONC) 2.5 MG/0.5 ML INHALATION ONE (15:35)
[2025-04-18] MEDS: SODIUM CHLORIDE 0.9% NEBULIZ 3 ML INHALATION ONE (15:36)
[2025-04-18] MEDS: SODIUM POLYSTYRENE SULFONATE 15 GM/60 ML BOTTLE PO ONE (16:13)
[2025-04-18 16:41] LABS: Glucose,Whole Blood 221 mg/dL (70-110)
--- NOTE | 2025-04-18 16:51 | CDI ---
Documentation Clarification Form Date: 04/18/2025 03:56:00 PM From: Jeanne Whitmore RN, CCDS Phone: [phone] Admit Date: 04/16/2025 09:59:00 AM Patient Name: Marita Perrin Visit Number: [id number] Discharge Date: ATTENTION: The Clinical Documentation Specialists (CDI) and [facility] Coding Staff appreciate your assistance in clarifying documentation. Please respond to the clarification below the line at the bottom and electronically sign. The CDI & [facility] Coding staff will review the response and follow-up if needed. Please note: Queries are made part of the Legal Health Record. If you have any questions, please contact the author of this message via ITS. Dr. Siva Rosales Acute Hypoxic Respiratory Failure is documented in the H/P and subsequent progress note which may lack sufficient clinical evidence/support in the medical record. Additional clarification is requested. Patient history/risk factors: Diabetes Mellitus, GERD/Reflux, Hypertension, ESRD on HD, Current smoker Clinical Indicators: 35-year-old female present with complaint of shortness of breath. Pulmonary: Patient has crackles bilateral bases. Examination of lower extremities shows 1+ edema 6/2 Vital signs: (07:26) 204/113 90 18 98,5 100% 4/LNC, (08:32 205/127 89/18 99% 3/L NC 6/2 Labs: WBC 10.44, K+ 6.3 BUN 95, CR 6.82 GFR 7 6/2 CXR: Diffuse bilateral lung infiltrate. Correlate for pulmonary edema or infection 6/2 H/P (Medicine) Patient usually uses 2 and half to 3 L of oxygen presently on 2-1/2 to 3/L oxygen. Pulmonary: Chest is clear to auscultation, no wheezing or crackles. Acute on chronic hypoxic respiratory failure secondary to pulmonary edema. Treatment: Ventolin Nebulized 2.5 MG Inhalation RT-QID Monitor O2 Sat's (titrate) Hemodialysis per Nephrology orders (4 times a week) After work up and study, please clarify which diagnosis is most appropriate? [ ] Acute Hypoxic Respiratory Failure ruled out and patient had Chronic Hypoxic respiratory secondary to Acute Pulmonary edema. [ x ] Acute on Chronic Hypoxic Respiratory Failure is a valid diagnosis as evidenced by the following: ___3l of O2 requirement [ ] Unable to determine [ ] Other, please specify (Template Last Revised: November 2023) MTDD
[2025-04-18] MEDS: INSULIN REGULAR 100 UNIT/ML VIAL (IV) IV ONE (17:27)
[2025-04-18] MEDS: SODIUM BICARB 8.4% 50 ML SYR (1 MEQ/ML) IV ONE (17:27)
[2025-04-18] MEDS: DEXTROSE 50% SYRINGE 50 ML IVP ONE (17:27)
--- NOTE | 2025-04-18 19:30 | P.PN ---
Subjective Patient is seen for follow-up for end-stage renal disease. Remains mildly short of breath. Status post hemodialysis yesterday with UF of 5 L. Objective - Vital Signs Vital signs: Vital Signs Temp 98.2 F 04/18/25 14:00 Pulse 71 04/18/25 16:00 Resp 18 04/18/25 14:00 BP 186/99 04/18/25 14:00 Pulse Ox 100 04/18/25 12:00 FiO2 Intake & Output 04/18/25 04/18/25 04/19/25 06:59 18:59 06:59 Intake Total 500 Output Total 8500 Balance -8000 Weight 70 kg Intake: Hemodialysis 500 Output: Hemodialysis 4500 Hemodialysis Net Amount 4000 Other: Voiding Method Toilet Toilet # Bowel Movements 1 - Exam Patient is awake, comfortable, no acute distress, mildly short of breath Examination of the heart S1 and S2 Examination of the lungs bilateral breath sounds are heard with basal crackles Abdomen is soft nontender Examination lower extremity shows trace edema 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 PRESENTER exam grossly intact - Labs CBC & Chem 7: 04/17/25 07:08 04/18/25 18:45 Labs: Abnormal Lab Results - Last 24 Hours (Table) 04/17/25 04/18/25 04/18/25 Range/Units 19:52 05:57 06:53 Sodium 136 L (137-145) mmol/L Potassium 6.0 H (3.5-5.1) mmol/L BUN 41 H (7-17) mg/dL Creatinine 4.02 H (0.52-1.04) mg/dL Glucose 179 H (74-99) mg/dL POC Glucose (mg/dL) 243 H 165 H (70-110) mg/dL 04/18/25 04/18/25 04/18/25 Range/Units 11:21 16:18 16:40 Sodium (137-145) mmol/L Potassium 5.9 H (3.5-5.1) mmol/L BUN (7-17) mg/dL Creatinine (0.52-1.04) mg/dL Glucose (74-99) mg/dL POC Glucose (mg/dL) 369 H 221 H (70-110) mg/dL 04/18/25 Range/Units 18:45 Sodium (137-145) mmol/L Potassium 5.7 H (3.5-5.1) mmol/L BUN (7-17) mg/dL Creatinine (0.52-1.04) mg/dL Glucose (74-99) mg/dL POC Glucose (mg/dL) (70-110) mg/dL Assessment and Plan Assessment: 1. End-stage renal disease on hemodialysis on Wednesday schedule as outpatient 2. Volume overload 3. Hyperkalemia 4. Acute hypoxic respiratory failure secondary to volume overload, improved 5. Hypertension, uncontrolled due to volume overload Plan: Hemodialysis today with UF of about 4L. Repeat in a.m. Continue with antihypertensive medications Continue with PhosLo with meals
[2025-04-18 20:07] LABS: Glucose,Whole Blood 188 mg/dL (70-110)
[2025-04-18] MEDS: SODIUM ZIRCONIUM CYCLOSILICATE 10 GM PACKET PO SCH (21:28)
[2025-04-18 21:30] LABS: Glucose,Whole Blood 219 mg/dL (70-110)
[2025-04-19] MEDS: ONDANSETRON 4 MG/2 ML VIAL IVP PRN (06:11)
--- NOTE | 2025-04-19 06:48 | P.PN ---
Subjective Progress Note Date: 04/18/25 Patient is 35-year-old female coming complaint of shortness of breath found to have pulm edema. Patient usually uses 2 and half to 3 L of oxygen presently on 2-1/2 to 3 L oxygen. Patient is on hemodialysis and did not miss her hemodialysis as per the patient. Patient blood pressure is significantly higher patient is also complaining of chest pain which appears to be musculoskeletal but has a pleuritic component and patient had a cardiac workup in the recent past, had a cardia catheterization which did not show any atherosclerotic occlusive disease. Patient had echocardiogram showed normal ejection fraction although does have left ventricular hypertrophy from uncontrolled blood pressure. Patient is complaining of headache. Which is chronic for her does take Percocet at home and requesting for Percocet 04/17/2025 Patient is evaluated in follow-up on the cardiac unit. She underwent hemodia lysis yesterday had a net output of 4 L off. Repeat blood work today reveals a potassium level of 5.4 BUN of 54 creatinine of 4.95. Currently has excision saturation 100% on 3 L of oxygen via nasal cannula. Blood pressure is 168/101. Patient reports having multiple episodes of loose stools. States she is having some mild abdominal discomfort. Also having cough. 04/18/2025 Patient evaluated in follow up on the cardiac unit. Underwent hemodialysis. Potassium came back at 5. Was given cocktail as well as keyaxelate and her potassium only came down to 5.7. Discharge will be held. Review of Systems Constitutional: Denied any fatigue denied any fever. Cardio vascular: denied any chest pain, palpitations Gastrointestinal: denied any nausea, vomiting, Reports diarrhea. Pulmonary: Denied any shortness of breath cough Neurologic denied any new focal deficits All inpatient medications were reviewed and appropriate changes in these medications as dictated in the interval history and assessment and plan. PHYSICAL EXAMINATION: GENERAL: The patient is alert and oriented x3, not in any acute distress. Well developed, well nourished. HEENT: Pupils are round and equally reacting to light. EOMI. No scleral icterus. No conjunctival pallor. Normocephalic, atraumatic. No pharyngeal erythema. No thyromegaly. CARDIOVASCULAR: S1 and S2 present. No murmurs, rubs, or gallops. PULMONARY: Chest is clear to auscultation, no wheezing or crackles. ABDOMEN: Soft, LLQ tender, nondistended, normoactive bowel sounds. No palpable organomegaly. MUSCULOSKELETAL: No joint swelling or deformity. EXTREMITIES: No cyanosis, clubbing, or pedal edema. NEUROLOGICAL: Gross neurological examination did not reveal any focal deficits. SKIN: No rashes. Assessment and plan - Acute on chronic hypoxic respiratory failure secondary to pulmonary edema. - Hyperkalemia secondary to end-stage renal disease - Mild nonspecific elevation of AST and ALT will repeat liver enzymes tomorrow again - Diarrhea likely viral gastroenteritis - Type 2 diabetes mellitus - Uncontrolled hypertension or accelerated hypertension as patient did not receive her medications once verified these medications will be reordered - Seizure disorder - Hypothyroidism - Gastroesophageal reflux disease - Chronic pain: Patient's chest pain is a part of chronic pain I do not believe patient has a pulmonary embolism or coronary artery disease. Patient has recent cardiac catheterization which showed clean coronaries DVT prophylaxis: Patient will be started on subcutaneous heparin Hemodialysis per nephrology. Continue albuterol PRN and cepacol,. Hold discharge for the hyperkalemia. The impression and plan of care has been dictated by Yeni Blackburn, Nurse Practitioner as directed. Dr. Connie MD I have performed a history and physical examination and medical decision making of this patient, discussed the same with the dictator, and agree with the dictators assessment and plan as written, documented as a scribe. Based on total visit time, I have performed more than 50% of this visit. Objective - Vital Signs Vital signs: Vital Signs Temp 97.6 F 04/19/25 04:07 Pulse 67 04/19/25 04:07 Resp 8 L 04/19/25 04:07 BP 192/100 04/19/25 06:02 Pulse Ox 100 04/19/25 04:07 FiO2 Intake & Output 04/18/25 04/18/25 04/19/25 06:59 18:59 06:59 Intake Total 500 Output Total 8500 Balance -8000 Weight 70 kg 68.1 kg Intake: Hemodialysis 500 Output: Hemodialysis 4500 Hemodialysis Net Amount 4000 Other: Voiding Method Toilet Toilet Toilet # Voids 1 # Bowel Movements 1 - Labs CBC & Chem 7: 04/17/25 07:08 04/18/25 18:45 Labs: Abnormal Lab Results - Last 24 Hours (Table) 06/04/25 06/04/25 06/04/25 Range/Units 06:53 11:21 16:18 Sodium 136 L (137-145) mmol/L Potassium 6.0 H 5.9 H (3.5-5.1) mmol/L BUN 41 H (7-17) mg/dL Creatinine 4.02 H (0.52-1.04) mg/dL Glucose 179 H (74-99) mg/dL POC Glucose (mg/dL) 369 H (70-110) mg/dL 04/18/25 04/18/25 04/18/25 Range/Units 16:40 18:45 20:05 Sodium (137-145) mmol/L Potassium 5.7 H (3.5-5.1) mmol/L BUN (7-17) mg/dL Creatinine (0.52-1.04) mg/dL Glucose (74-99) mg/dL POC Glucose (mg/dL) 221 H 188 H (70-110) mg/dL 04/18/25 Range/Units 21:29 Sodium (137-145) mmol/L Potassium (3.5-5.1) mmol/L BUN (7-17) mg/dL Creatinine (0.52-1.04) mg/dL Glucose (74-99) mg/dL POC Glucose (mg/dL) 219 H (70-110) mg/dL Assessment and Plan Time with Patient: Less than 30
[2025-04-19 07:10] LABS: Glucose,Whole Blood 230 mg/dL (70-110)
[2025-04-19 07:40] LABS: African American GFR (CKD) 10 (>60 ml/min/1.73 sqM); Anion Gap 20 mmol/L; Blood Urea Nitrogen 65 mg/dL (7-17); Calcium 9.2 mg/dL (8.4-10.2); Carbon Dioxide 22 mmol/L (22-30); Chloride 90 mmol/L (98-107); Glucose 237 mg/dL (74-99); Non-African American GFR(CKD) 9 (>60 ml/min/1.73 sqM); Sodium 132 mmol/L (137-145)
[2025-04-19] MEDS: ALBUTEROL NEBULIZED 2.5 MG/3 ML INHALATION PRN (09:30)
[2025-04-19 12:20] LABS: Glucose,Whole Blood 115 mg/dL (70-110)
--- NOTE | 2025-04-19 14:13 | P.PN ---
Subjective Patient is seen for follow-up for end-stage renal disease. Remains mildly short of breath. Seen on hemodialysis UF about 4 L today Objective - Vital Signs Vital signs: Vital Signs Temp 98.4 F 04/19/25 12:19 Pulse 71 04/19/25 12:19 Resp 16 04/19/25 12:19 BP 174/96 04/19/25 12:19 Pulse Ox 100 04/19/25 11:35 FiO2 Intake & Output 04/18/25 04/19/25 04/19/25 18:59 06:59 18:59 Intake Total 500 400 Output Total 8500 8400 Balance -8000 -8000 Weight 68.1 kg Intake: Hemodialysis 500 400 Output: Hemodialysis 4500 4400 Hemodialysis Net Amount 4000 4000 Other: Voiding Method Toilet Toilet Toilet # Voids 1 # Bowel Movements 1 - Exam Patient is awake, comfortable, no acute distress, mildly short of breath Examination of the heart S1 and S2 Examination of the lungs bilateral breath sounds are heard with basal crackles Abdomen is soft nontender Examination lower extremity shows trace edema [employer] exam grossly intact - Labs CBC & Chem 7: 04/17/25 07:08 04/19/25 07:07 Labs: Abnormal Lab Results - Last 24 Hours (Table) 04/18/25 04/18/25 04/18/25 Range/Units 16:18 16:40 18:45 Sodium (137-145) mmol/L Potassium 5.9 H 5.7 H (3.5-5.1) mmol/L Chloride (98-107) mmol/L BUN (7-17) mg/dL Creatinine (0.52-1.04) mg/dL Glucose (74-99) mg/dL POC Glucose (mg/dL) 221 H (70-110) mg/dL 04/18/25 04/18/25 04/19/25 Range/Units 20:05 21:29 07:07 Sodium 132 L (137-145) mmol/L Potassium 6.0 H (3.5-5.1) mmol/L Chloride 90 L (98-107) mmol/L BUN 65 H (7-17) mg/dL Creatinine 5.69 H (0.52-1.04) mg/dL Glucose 237 H (74-99) mg/dL POC Glucose (mg/dL) 188 H 219 H (70-110) mg/dL 04/19/25 04/19/25 Range/Units 07:09 12:10 Sodium (137-145) mmol/L Potassium (3.5-5.1) mmol/L Chloride (98-107) mmol/L BUN (7-17) mg/dL Creatinine (0.52-1.04) mg/dL Glucose (74-99) mg/dL POC Glucose (mg/dL) 230 H 115 H (70-110) mg/dL Assessment and Plan Assessment: 1. End-stage renal disease on hemodialysis on Wednesday schedule as outpatient 2. Volume overload, slowly improving 3. Hyperkalemia 4. Acute hypoxic respiratory failure secondary to volume overload, improved 5. Hypertension, uncontrolled due to volume overload Plan: Hemodialysis today with UF of about 4L. Repeat dialysis in a.m. Continue with antihypertensive medications Continue with PhosLo with meals
--- NOTE | 2025-04-19 15:03 | P.PN ---
Subjective Progress Note Date: 04/19/25 Patient is 35-year-old female coming complaint of shortness of breath found to have pulm edema. Patient usually uses 2 and half to 3 L of oxygen presently on 2-1/2 to 3 L oxygen. Patient is on hemodialysis and did not miss her hemodialysis as per the patient. Patient blood pressure is significantly higher patient is also complaining of chest pain which appears to be musculoskeletal but has a pleuritic component and patient had a cardiac workup in the recent past, had a cardia catheterization which did not show any atherosclerotic occlusive disease. Patient had echocardiogram showed normal ejection fraction although does have left ventricular hypertrophy from uncontrolled blood pressure. Patient is complaining of headache. Which is chronic for her does take Percocet at home and requesting for Percocet 04/17/2025 Patient is evaluated in follow-up on the cardiac unit. She underwent hemodia lysis yesterday had a net output of 4 L off. Repeat blood work today reveals a potassium level of 5.4 BUN of 54 creatinine of 4.95. Currently has excision saturation 100% on 3 L of oxygen via nasal cannula. Blood pressure is 168/101. Patient reports having multiple episodes of loose stools. States she is having some mild abdominal discomfort. Also having cough. 04/18/2025 Patient evaluated in follow up on the cardiac unit. Underwent hemodialysis. Potassium came back at 5. Was given cocktail as well as keyaxelate and her potassium only came down to 5.7. Discharge will be held. 04/19/2025 Patient evaluated today in follow up. Potassium 6.0 today. Patient on lokelma 10 mg three times daily and will undergo hemodialysis today. Complaining of purulent drainage from tooth #21 and the tooth is cracked and decayed with significant drainage noted and concern for abscess and that tooth will likely need to be extracted. Maxillofacial surgery and ID have been consulted. Review of Systems Constitutional: Denied any fatigue denied any fever. Cardio vascular: denied any chest pain, palpitations Gastrointestinal: denied any nausea, vomiting, Reports diarrhea. Pulmonary: Denied any shortness of breath cough Neurologic denied any new focal deficits All inpatient medications were reviewed and appropriate changes in these medications as dictated in the interval history and assessment and plan. PHYSICAL EXAMINATION: GENERAL: The patient is alert and oriented x3, not in any acute distress. Well developed, well nourished. HEENT: Pupils are round and equally reacting to light. EOMI. No scleral icterus. No conjunctival pallor. Normocephalic, atraumatic. No pharyngeal erythema. No t hyromegaly. CARDIOVASCULAR: S1 and S2 present. No murmurs, rubs, or gallops. PULMONARY: Chest is clear to auscultation, no wheezing or crackles. ABDOMEN: Soft, LLQ tender, nondistended, normoactive bowel sounds. No palpable organomegaly. MUSCULOSKELETAL: No joint swelling or deformity. EXTREMITIES: No cyanosis, clubbing, or pedal edema. NEUROLOGICAL: Gross neurological examination did not reveal any focal deficits. SKIN: No rashes. Assessment and plan - Acute on chronic hypoxic respiratory failure secondary to pulmonary edema. - Dental abscess; pending CT panorex, start IV unasyn and ID consultation - Hyperkalemia secondary to end-stage renal disease patient to undergo hemodialysis today - Mild nonspecific elevation of AST and ALT will repeat liver enzymes tomorrow again - Diarrhea likely viral gastroenteritis - Type 2 diabetes mellitus - Uncontrolled hypertension or accelerated hypertension as patient did not receive her medications once verified these medications will be reordered - Seizure disorder - Hypothyroidism - Gastroesophageal reflux disease - Chronic pain: Patient's chest pain is a part of chronic pain I do not believe patient has a pulmonary embolism or coronary artery disease. Patient has recent cardiac catheterization which showed clean coronaries DVT prophylaxis: Patient will be started on subcutaneous heparin Hemodialysis per nephrology. Continue albuterol PRN and cepacol for cough. Hold discharge for the hyperkalemia. Hemodialysis per nephrology. ID consultation start IV unasyn and pending oral surgeon consult and CT panorex. The impression and plan of care has been dictated by Yeni Blackburn, Nurse Practitioner as directed. Dr. Connie MD I have performed a history and physical examination and medical decision making of this patient, discussed the same with the dictator, and agree with the dictators assessment and plan as written, documented as a scribe. Based on total visit time, I have performed more than 50% of this visit. Objective - Vital Signs Vital signs: Vital Signs Temp 98.4 F 04/19/25 12:19 Pulse 71 04/19/25 12:19 Resp 16 04/19/25 12:19 BP 174/96 04/19/25 12:19 Pulse Ox 100 04/19/25 11:35 FiO2 Intake & Output 04/18/25 04/19/25 04/19/25 18:59 06:59 18:59 Intake Total 500 400 Output Total 8500 8400 Balance -8000 -8000 Weight 68.1 kg Intake: Hemodialysis 500 400 Output: Hemodialysis 4500 4400 Hemodialysis Net Amount 4000 4000 Other: Voiding Method Toilet Toilet Toilet # Voids 1 # Bowel Movements 1 - Labs CBC & Chem 7: 04/17/25 07:08 04/19/25 07:07 Labs: Abnormal Lab Results - Last 24 Hours (Table) 04/18/25 04/18/25 04/18/25 Range/Units 16:18 16:40 18:45 Sodium (137-145) mmol/L Potassium 5.9 H 5.7 H (3.5-5.1) mmol/L Chloride (98-107) mmol/L BUN (7-17) mg/dL Creatinine (0.52-1.04) mg/dL Glucose (74-99) mg/dL POC Glucose (mg/dL) 221 H (70-110) mg/dL 04/18/25 04/18/25 04/19/25 Range/Units 20:05 21:29 07:07 Sodium 132 L (137-145) mmol/L Potassium 6.0 H (3.5-5.1) mmol/L Chloride 90 L (98-107) mmol/L BUN 65 H (7-17) mg/dL Creatinine 5.69 H (0.52-1.04) mg/dL Glucose 237 H (74-99) mg/dL POC Glucose (mg/dL) 188 H 219 H (70-110) mg/dL 04/19/25 04/19/25 Range/Units 07:09 12:10 Sodium (137-145) mmol/L Potassium (3.5-5.1) mmol/L Chloride (98-107) mmol/L BUN (7-17) mg/dL Creatinine (0.52-1.04) mg/dL Glucose (74-99) mg/dL POC Glucose (mg/dL) 230 H 115 H (70-110) mg/dL
--- NOTE | 2025-04-19 16:21 | CT ---
CT Panorex HISTORY: Abscessed tooth. COMPARISON: None TECHNIQUE: CT Panorex was performed. FINDINGS: There is lucency around the apex of the left premolar consistent with an abscess. There is a defect i n the anterior adjacent mandible cortex. No other significant abnormalities are seen. IMPRESSION: Findings consistent with an abscessed left premolar as described above. [facility], Workstation: [facility], 04/19/2025 4:18 PM
[2025-04-19 16:36] LABS: Glucose,Whole Blood 545 mg/dL (70-110)
[2025-04-19] MEDS: AMPICILLIN-SULBACTAM 1.5 GM in SODIUM CHLORIDE 0.9% 50 ML IVPB SCH (18:05)
[2025-04-19 20:56] LABS: Glucose,Whole Blood 422 mg/dL (70-110)
[2025-04-19] MEDS: INSULIN LISPRO (HumaLOG) 100 UNIT/ML 10 mL VL SQ ONE (21:42)
--- NOTE | 2025-04-19 22:01 | P.CONS ---
History of Present Illness - Reason for Consult Consult date: 04/19/25 Tooth abscess Requesting physician: Yeni Blackburn - Chief Complaint Left lower jaw tooth pain and drainage x days - History of Present Illness Patient is a 35-year-old female with a past medical history significant for Diabetes Mellitus, GERD/Reflux, Hypertension, Renal Disease, Seizure Disorder, Thyroid Disorder presenting to the hospital 3 days ago with difficulty in breathing with no evidence of any chest pain nausea vomiting or diarrhea on presentation to the hospital patient was afebrile and no fever have recorded subsequently patient apparently did have a broken lower left premolar teeth that has been more than a month ago however the patient noticed to having increasing pain and pus drainage that she reported today to the medical team, patient described the pain to be sharp moderate to severe intensity without any radiation with associated drainage has reportedly, patient did have a CT which did confirm lower left premolar abscessed tooth has some defect in the lower jaw patient was started on Unasyn infectious disease was consulted for further management of antibiotic therapy Review of Systems Positive point and negatives has been mentioned in the HPI, complete review of systems was performed and all other systems are negative Past Medical History Past Medical History: Diabetes Mellitus, GERD/Reflux, Hypertension, Renal Disease, Seizure Disorder, Thyroid Disorder Additional Past Medical History / Comment(s): Neuropathy, last seizure 2020, gastroparesis, headaches with dialysis, states "fast heart rate" since giving ., receives Hemodialysis Wednesday- and Saturdays at [facility] right chest hemodialysis catheter., severe HTN, hx of c-diff 2013., 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 Past Anesthesia/Blood Transfusion Reactions: Previous Problems w/ Anesthesia Additional Past Anesthesia/Blood Transfusion Reaction / Comm: confusion Past Psychological History: Anxiety, Depression Smoking Status: Current every day smoker Past Alcohol Use History: None Reported Additional Past Alcohol Use History / Comment(s): smokes a half PPD Past Drug Use History: Marijuana Additional Drug Use History / Comment(s): Patient states, "I haven't smoke marijauna in months." - Past Family History Father History Unknown: Yes Family Medical History: Unable to Obtain Mother History Unknown: Yes Family Medical History: No Reported History Grandfather History Unknown: Yes Family Medical History: Coronary Artery Disease (CAD) Additional Family Medical History / Comment(s): Diabetes mellitus type 2 Medications and Allergies Home Medications Medication Instructions Recorded Confirmed Type Docusate [Colace] 100 mg PO DAILY@0800 02/05/24 04/16/25 History Lidocaine 4% Patch 1 patch TOPICAL DAILY@0800 02/05/24 04/16/25 History Ipratropium-Albuterol Nebulize 3 ml INHALATION RT-TID PRN each 02/14/24 04/16/25 Rx [Duoneb 0.5 mg-3 mg/3 ml Soln] polyethylene glycoL 3350 [Miralax] 17 gm PO AC-LUNCH #527 gm 02/14/24 04/16/25 Rx Acetaminophen [Tylenol] 650 mg PO Q4H PRN 02/18/24 04/16/25 History Biotene Dry Mouth/Throat 10 ml PO BID PRN 02/18/24 04/16/25 History Melatonin 1 mg PO HS tab 02/25/24 04/16/25 Rx Loratadine [Claritin] 5 mg PO DAILY tab 03/30/24 04/16/25 Rx Aspirin 81 mg PO DAILY@0800 #30 tab 05/18/24 04/16/25 Rx Famotidine [Pepcid] 20 mg PO BID #60 tab 07/11/24 04/16/25 Rx Levothyroxine Sodium [Synthroid] 175 mcg PO DAILY@0600 08/14/24 04/16/25 History Sertraline [Zoloft] 200 mg PO DAILY@0800 08/14/24 04/16/25 History Atorvastatin [Lipitor] 40 mg PO HS #0 11/23/24 04/16/25 Rx Folic Acid/Vit B Complex and C 0.8 mg PO DAILY 12/20/24 04/16/25 History [Davina-Mayte Tablet] traZODone HCL [Desyrel] 50 mg PO HS #20 tab 01/01/25 04/16/25 Rx Isosorbide Mononitrate ER [Imdur] 120 mg PO DAILY #60 tab 01/02/25 04/16/25 Rx NIFEdipine XL [Procardia XL] 60 mg PO BID 30 Days #60 tab 01/02/25 04/16/25 Rx Gabapentin [Neurontin] 100 mg PO BID 30 Days #60 cap 01/03/25 04/16/25 Rx Linagliptin [Tradjenta] 5 mg PO DAILY #30 tab 01/03/25 04/16/25 Rx Insulin Lispro [humaLOG Kwikpen] 8 unit SQ AC-TID 01/22/25 04/16/25 History Insulin Lispro [humaLOG Kwikpen] See Protocol SQ AC-TID 01/22/25 04/16/25 History cloNIDine HCL [Catapres] 0.3 mg PO TID 01/22/25 04/16/25 History carvediloL [Coreg] 50 mg PO BID #120 tablet 02/15/25 04/16/25 Rx Calcium Acetate [PhosLo] 1,334 mg PO TID-W/MEALS 30 Days 02/19/25 04/16/25 Rx #360 tab Ipratropium-Albuterol Nebulize 3 ml INHALATION RT-TID #100 each 02/19/25 04/16/25 Rx [Duoneb 0.5 mg-3 mg/3 ml Soln] ALPRAZolam [Xanax] 0.25 mg PO BID PRN 02/26/25 04/16/25 History Divalproex Sodium [Depakote] 500 mg PO BID@0800,1700 02/26/25 04/16/25 History Lidocaine 5% Cream 1 applic TOPICAL MOTUWETHSA 02/26/25 04/16/25 History Methoxy Peg-Epoetin Beta [Mircera] 100 mcg SQ Q14D 02/26/25 04/16/25 History Insulin Glargine (Lantus) [Lantus 11 unit SQ BID #0 03/18/25 04/16/25 Rx Vial] oxyCODONE HCL/ACETAMINOPHEN 1 tab PO DAILY PRN 04/16/25 04/16/25 History [Percocet 10-325 mg] Amoxic-Pot Clav 875-125Mg 1 tab PO Q12HR 5 Days #10 tab 04/18/25 Rx [Augmentin 875-125] Allergies Allergy/AdvReac Type Severity Reaction Status Date / Time hydromorphone HCl Allergy Anaphylaxis Verified 04/16/25 07:31 [From Dilaudid] propoxyphene Allergy Rash/Hives Verified 04/16/25 07:31 [From Darvocet-N] tramadol Allergy Anaphylaxis Verified 04/16/25 07:31 ibuprofen [From Motrin] AdvReac unable to Verified 04/16/25 07:31 take due to kidney disease venom-honey bee AdvReac passes out Verified 04/16/25 07:31 [bee venom (honey bee)] Physical Exam Vitals: Vital Signs Temp Pulse Pulse Resp BP Pulse Ox 04/19/25 12:19 98.4 F 71 16 174/96 04/19/25 11:35 97.9 F 71 20 158/78 100 04/19/25 09:43 87 04/19/25 09:36 100 04/19/25 09:34 86 04/19/25 08:00 97.7 F 71 20 186/86 100 04/19/25 06:02 192/100 04/19/25 04:07 97.6 F 67 8 L 159/91 100 04/19/25 02:09 163/98 04/19/25 02:00 16 04/19/25 00:00 98.6 F 71 18 189/92 100 04/18/25 20:00 16 04/18/25 19:51 98.2 F 73 18 188/98 100 04/18/25 16:00 71 04/18/25 15:56 68 04/18/25 15:37 69 Intake and Output 04/19/25 04/19/25 04/19/25 06:59 14:59 22:59 Intake Total 400 Output Total 8400 Balance -8000 Intake: Hemodialysis 400 Output: Hemodialysis 4400 Hemodialysis Net Amount 4000 Other: Voiding Method Toilet Toilet # Voids 1 Weight 68.1 kg GENERAL DESCRIPTION: Middle-age female up in the chair, no distress. No tachypnea or accessory muscle of respiration use. HEENT: Shows Pallor , no scleral icterus. Oral mucous membrane is dry. Left lower jaw with a broken premolar tooth some congenital swelling was noticed following purulent drainage NECK: Trachea central, no thyromegaly. LUNGS: Unlabored breathing. Clear to auscultation anteriorly. No wheeze or crackle. HEART: S1, S2, regular rate and rhythm. No loud murmur ABDOMEN: Soft, no tenderness , guarding or rigidity, no organomegaly EXTREMITIES: No edema of feet. SKIN: No rash, no masses palpable. NEUROLOGICAL: The patient is awake, alert, oriented x3, mood and affect normal. Results CBC & Chem 7: 04/17/25 07:08 04/19/25 07:07 Labs: Abnormal Lab Results - Last 24 Hours (Table) 04/18/25 04/18/25 04/18/25 Range/Units 16:18 16:40 18:45 Sodium (137-145) mmol/L Potassium 5.9 H 5.7 H (3.5-5.1) mmol/L Chloride (98-107) mmol/L BUN (7-17) mg/dL Creatinine (0.52-1.04) mg/dL Glucose (74-99) mg/dL POC Glucose (mg/dL) 221 H (70-110) mg/dL 04/18/25 04/18/25 04/19/25 Range/Units 20:05 21:29 07:07 Sodium 132 L (137-145) mmol/L Potassium 6.0 H (3.5-5.1) mmol/L Chloride 90 L (98-107) mmol/L BUN 65 H (7-17) mg/dL Creatinine 5.69 H (0.52-1.04) mg/dL Glucose 237 H (74-99) mg/dL POC Glucose (mg/dL) 188 H 219 H (70-110) mg/dL 04/19/25 04/19/25 Range/Units 07:09 12:10 Sodium (137-145) mmol/L Potassium (3.5-5.1) mmol/L Chloride (98-107) mmol/L BUN (7-17) mg/dL Creatinine (0.52-1.04) mg/dL Glucose (74-99) mg/dL POC Glucose (mg/dL) 230 H 115 H (70-110) mg/dL Assessment and Plan (1) Abscessed tooth Current Visit: Yes Status: Acute Code(s): K04.7 - PERIAPICAL ABSCESS WITHOUT SINUS SNOMED Code(s): 437560961 Plan: 1patient with a left lower premolar broken tooth now complaining of pain and drainage in this patient who did have a CT we did shows abscessed tooth and some defect in the lower jaw will need to cover for the oral awa to be the likely pathogen 2-patient benefit from dental surgery evaluation for removal of the infected tooth and deep culture 3patient to be treated with Unasyn dose to be adjusted to the kidney function by pharmacy We will follow on clinical condition and cultures to further adjust medication if needed Thank you for this consultation we will follow the patient along with you Dictation was produced using [employer] dictation software. please excuse any grammatical, word or spelling errors. Time with Patient: Greater than 30
[2025-04-20 06:58] LABS: Glucose,Whole Blood 184 mg/dL (70-110)
[2025-04-20 08:01] LABS: Basophils # (A) 0.08 10*3/uL (0.00-0.10); Basophils % (A) 1.2 %; Eosinophils # (A) 0.69 10*3/uL (0.04-0.35); Eosinophils % (A) 10.7 %; HCT 31.4 % (37.2-46.3); HGB 10.4 g/dL (12.0-15.0); Lymphocytes # (A) 0.98 10*3/uL (0.90-5.00); Lymphocytes % (A) 15.2 %; MCH 32.6 pg (27.0-32.0); MCHC 33.1 g/dL (32.0-37.0); MCV 98.4 fL (80.0-97.0); Monocytes # (A) 0.59 10*3/uL (0.20-1.00); Monocytes % (A) 9.2 %; Neutrophils # (A) 4.09 10*3/uL (1.80-7.70); Neutrophils % (A) 63.5 %; Platelet Count 224 10*3/uL (140-440); RBC 3.19 10*6/uL (4.10-5.20); RDW 15.9 % (11.5-14.5); WBC 6.44 10*3/uL (4.50-10.00)
[2025-04-20 08:19] LABS: African American GFR (CKD) 13 (>60 ml/min/1.73 sqM); Anion Gap 14 mmol/L; Blood Urea Nitrogen 48 mg/dL (7-17); Calcium 9.1 mg/dL (8.4-10.2); Carbon Dioxide 28 mmol/L (22-30); Chloride 89 mmol/L (98-107); Glucose 177 mg/dL (74-99); Non-African American GFR(CKD) 12 (>60 ml/min/1.73 sqM); Sodium 131 mmol/L (137-145)
[2025-04-20 08:25] LABS: Potassium 6.1 mmol/L (3.5-5.1)
[2025-04-20 11:30] LABS: Glucose,Whole Blood 196 mg/dL (70-110)
--- NOTE | 2025-04-20 15:36 | P.PN ---
Subjective Patient is seen for follow-up for end-stage renal disease. Scheduled for hemodialysis again today. Objective - Vital Signs Vital signs: Vital Signs Temp 98.1 F 04/20/25 12:12 Pulse 77 04/20/25 13:15 Resp 16 04/20/25 13:15 BP 163/84 04/20/25 12:12 Pulse Ox 99 04/20/25 12:12 FiO2 Intake & Output 04/19/25 04/20/25 04/20/25 18:59 06:59 18:59 Intake Total 930 200 762 Output Total 8400 8400 Balance -7470 200 -7638 Weight 68.2 kg Intake: IV 20 Invasive Line 3 20 Intake, IV Titration 50 Amount Ampicillin-Sulbactam 1.5 50 gm In Sodium Chloride 0.9 % 50 ml @ 100 mls/hr IVPB Q6HR [facility] Rx#:[id number] Oral 480 200 342 Hemodialysis 400 400 Output: Hemodialysis 4400 4400 Hemodialysis Net Amount 4000 4000 Other: Voiding Method Toilet Toilet Toilet # Voids 1 - Exam Patient is awake, comfortable, no acute distress, mildly short of breath Examination of the heart S1 and S2 Examination of the lungs bilateral breath sounds are heard with basal crackles Examination lower extremity shows trace edema DIRECTOR AUTO exam grossly intact - Labs CBC & Chem 7: 04/20/25 07:23 04/20/25 07:23 Labs: Abnormal Lab Results - Last 24 Hours (Table) 04/19/25 04/19/25 04/20/25 Range/Units 16:33 20:47 06:55 RBC (4.10-5.20) 10*6/uL Hgb (12.0-15.0) g/dL Hct (37.2-46.3) % MCV (80.0-97.0) fL MCH (27.0-32.0) pg Eosinophils # (0.04-0.35) 10*3/uL Sodium (137-145) mmol/L Potassium (3.5-5.1) mmol/L Chloride (98-107) mmol/L BUN (7-17) mg/dL Creatinine (0.52-1.04) mg/dL Glucose (74-99) mg/dL POC Glucose (mg/dL) 545 H* 422 H 184 H (70-110) mg/dL 04/20/25 04/20/25 04/20/25 Range/Units 07:23 07:23 11:28 RBC 3.19 L (4.10-5.20) 10*6/uL Hgb 10.4 L (12.0-15.0) g/dL Hct 31.4 L (37.2-46.3) % MCV 98.4 H (80.0-97.0) fL MCH 32.6 H (27.0-32.0) pg Eosinophils # 0.69 H (0.04-0.35) 10*3/uL Sodium 131 L (137-145) mmol/L Potassium 6.1 H* (3.5-5.1) mmol/L Chloride 89 L (98-107) mmol/L BUN 48 H (7-17) mg/dL Creatinine 4.61 H (0.52-1.04) mg/dL Glucose 177 H (74-99) mg/dL POC Glucose (mg/dL) 196 H (70-110) mg/dL Assessment and Plan Assessment: 1. End-stage renal disease on hemodialysis on Wednesday schedule as outpatient 2. Volume overload, slowly improving 3. Hyperkalemia 4. Acute hypoxic respiratory failure secondary to volume overload, improved 5. Hypertension, uncontrolled due to volume overload 6. Dental abscess maintained on antibiotics Plan: Hemodialysis today with UF of about 4L. Repeat dialysis in a.m. Continue with antihypertensive medications Continue with PhosLo with meals Continue with antibiotics for tooth abscess
--- NOTE | 2025-04-20 16:18 | P.PN ---
Subjective Progress Note Date: 04/20/25 Principal diagnosis: Reason for follow-up is abscessed tooth Patient is a 35-year-old female with a past medical history significant for Diabetes Mellitus, GERD/Reflux, Hypertension, Renal Disease, Seizure Disorder, Thyroid Disorder presenting to the hospital with difficulty breathing patient also complained of left lower jaw broken tooth with increasing pain and drainage concerning for infected tooth confirmed on the CT. On today's evaluation that is 04/20/2025, the patient continues to be afebrile, the patient is on 3 L nasal cannula oxygen and breathing comfortably, the Pt denies having any chest pain or cough, the patient denies having any abdominal pain no vomiting or any diarrhea still complaining of discomfort to the left lower jaw. Patient white count 6.44, creatinine 4.61 Objective - Vital Signs Vital signs: Vital Signs Temp 98.1 F 04/20/25 12:12 Pulse 77 04/20/25 12:12 Resp 16 04/20/25 12:12 BP 163/84 04/20/25 12:12 Pulse Ox 99 04/20/25 12:12 FiO2 Intake & Output 04/19/25 04/20/25 04/20/25 18:59 06:59 18:59 Intake Total 930 200 632 Output Total 8400 8400 Balance -7470 200 -7768 Weight 68.2 kg Intake: IV 10 Invasive Line 3 10 Intake, IV Titration 50 Amount Ampicillin-Sulbactam 1.5 50 gm In Sodium Chloride 0.9 % 50 ml @ 100 mls/hr IVPB Q6HR [facility] Rx#:[id number] Oral 480 200 222 Hemodialysis 400 400 Output: Hemodialysis 4400 4400 Hemodialysis Net Amount 4000 4000 Other: Voiding Method Toilet Toilet Toilet # Voids 1 - Exam GENERAL DESCRIPTION: Middle-age female lying in bed in no distress HEENT: Left lower jaw with a broken tooth some surrounding swelling RESPIRATORY SYSTEM: Unlabored breathing , decreased breath sounds at bases HEART: S1 S2 regular rate and rhythm , ABDOMEN: Soft , no tenderness EXTREMITIES: No edema feet - Labs CBC & Chem 7: 04/20/25 07:23 04/20/25 07:23 Labs: Abnormal Lab Results - Last 24 Hours (Table) 04/19/25 04/19/25 04/20/25 Range/Units 16:33 20:47 06:55 RBC (4.10-5.20) 10*6/uL Hgb (12.0-15.0) g/dL Hct (37.2-46.3) % MCV (80.0-97.0) fL MCH (27.0-32.0) pg Eosinophils # (0.04-0.35) 10*3/uL Sodium (137-145) mmol/L Potassium (3.5-5.1) mmol/L Chloride (98-107) mmol/L BUN (7-17) mg/dL Creatinine (0.52-1.04) mg/dL Glucose (74-99) mg/dL POC Glucose (mg/dL) 545 H* 422 H 184 H (70-110) mg/dL 04/20/25 04/20/25 04/20/25 Range/Units 07:23 07:23 11:28 RBC 3.19 L (4.10-5.20) 10*6/uL Hgb 10.4 L (12.0-15.0) g/dL Hct 31.4 L (37.2-46.3) % MCV 98.4 H (80.0-97.0) fL MCH 32.6 H (27.0-32.0) pg Eosinophils # 0.69 H (0.04-0.35) 10*3/uL Sodium 131 L (137-145) mmol/L Potassium 6.1 H* (3.5-5.1) mmol/L Chloride 89 L (98-107) mmol/L BUN 48 H (7-17) mg/dL Creatinine 4.61 H (0.52-1.04) mg/dL Glucose 177 H (74-99) mg/dL POC Glucose (mg/dL) 196 H (70-110) mg/dL Assessment and Plan (1) Abscessed tooth Current Visit: Yes Status: Acute Code(s): K04.7 - PERIAPICAL ABSCESS WITHOUT SINUS SNOMED Code(s): 145924831 Plan: 1patient with a left lower premolar broken tooth now complaining of pain and drainage in this patient who did have a CT we did shows abscessed tooth and some defect in the lower jaw will need to cover for the oral awa to be the likely pathogen 2-patient will benefit from dental surgery evaluation for removal of the infected tooth and deep culture 3patient patient is currently being treated with Unasyn to continue dose should be adjusted to her kidney function Dictation was produced using [employer] dictation software. please excuse any grammatical, word or spelling errors. Time with Patient: Less than 30
--- NOTE | 2025-04-20 16:37 | P.GSCN ---
History of Present Illness Consult date: 04/20/25 Reason for Consult: Dental abscess lower left Requesting physician: Dahiana Chan History of present illness: 35-year-old female known to my clinic has come multiple times discussing her dental decay with referral for removal of all remaining teeth. Patient was admitted for fluid overload and kidney failure complications. Developed a dental abscess. Patient reported yesterday she popped the dental abscess and has since started to resolve. 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 Past Anesthesia/Blood Transfusion Reactions: Previous Problems w/ Anesthesia Additional Past Anesthesia/Blood Transfusion Reaction / Comm: confusion Past Psychological History: Anxiety, Depression Smoking Status: Current every day smoker Past Alcohol Use History: None Reported Additional Past Alcohol Use History / Comment(s): smokes a half PPD Past Drug Use History: Marijuana Additional Drug Use History / Comment(s): Patient states, "I haven't smoke marijauna in months." - Past Family History Father History Unknown: Yes Family Medical History: Unable to Obtain Mother History Unknown: Yes Family Medical History: No Reported History Grandfather History Unknown: Yes Family Medical History: Coronary Artery Disease (CAD) Additional Family Medical History / Comment(s): Diabetes mellitus type 2 Medications and Allergies Home Medications Medication Instructions Recorded Confirmed Type Docusate [Colace] 100 mg PO DAILY@0800 02/05/24 04/16/25 History Lidocaine 4% Patch 1 patch TOPICAL DAILY@79902/05/24 04/16/25 History Ipratropium-Albuterol Nebulize 3 ml INHALATION RT-TID PRN each 02/14/24 04/16/25 Rx [Duoneb 0.5 mg-3 mg/3 ml Soln] polyethylene glycoL 3350 [Miralax] 17 gm PO AC-LUNCH #527 gm 02/14/24 04/16/25 Rx Acetaminophen [Tylenol] 650 mg PO Q4H PRN 02/18/24 04/16/25 History Biotene Dry Mouth/Throat 10 ml PO BID PRN 02/18/24 04/16/25 History Melatonin 1 mg PO HS tab 02/25/24 04/16/25 Rx Loratadine [Claritin] 5 mg PO DAILY tab 03/30/24 04/16/25 Rx Aspirin 81 mg PO DAILY@0800 #30 tab 05/18/24 04/16/25 Rx Famotidine [Pepcid] 20 mg PO BID #60 tab 07/11/24 04/16/25 Rx Levothyroxine Sodium [Synthroid] 175 mcg PO DAILY@0600 08/14/24 04/16/25 History Sertraline [Zoloft] 200 mg PO DAILY@0800 08/14/24 04/16/25 History Atorvastatin [Lipitor] 40 mg PO HS #0 11/23/24 04/16/25 Rx Folic Acid/Vit B Complex and C 0.8 mg PO DAILY 12/20/24 04/16/25 History [Davina-Mayte Tablet] traZODone HCL [Desyrel] 50 mg PO HS #20 tab 01/01/25 04/16/25 Rx Isosorbide Mononitrate ER [Imdur] 120 mg PO DAILY #60 tab 01/02/25 04/16/25 Rx NIFEdipine XL [Procardia XL] 60 mg PO BID 30 Days #60 tab 01/02/25 04/16/25 Rx Gabapentin [Neurontin] 100 mg PO BID 30 Days #60 cap 01/03/25 04/16/25 Rx Linagliptin [Tradjenta] 5 mg PO DAILY #30 tab 01/03/25 04/16/25 Rx Insulin Lispro [humaLOG Kwikpen] 8 unit SQ AC-TID 01/22/25 04/16/25 History Insulin Lispro [humaLOG Kwikpen] See Protocol SQ AC-TID 01/22/25 04/16/25 History cloNIDine HCL [Catapres] 0.3 mg PO TID 01/22/25 04/16/25 History carvediloL [Coreg] 50 mg PO BID #120 tablet 02/15/25 04/16/25 Rx Calcium Acetate [PhosLo] 1,334 mg PO TID-W/MEALS 30 Days 02/19/25 04/16/25 Rx #360 tab Ipratropium-Albuterol Nebulize 3 ml INHALATION RT-TID #100 each 02/19/25 04/16/25 Rx [Duoneb 0.5 mg-3 mg/3 ml Soln] ALPRAZolam [Xanax] 0.25 mg PO BID PRN 02/26/25 04/16/25 History Divalproex Sodium [Depakote] 500 mg PO BID@0800,1700 02/26/25 04/16/25 History Lidocaine 5% Cream 1 applic TOPICAL MOTUWETHSA 02/26/25 04/16/25 History Methoxy Peg-Epoetin Beta [Mircera] 100 mcg SQ Q14D 02/26/25 04/16/25 History Insulin Glargine (Lantus) [Lantus 11 unit SQ BID #0 03/18/25 04/16/25 Rx Vial] oxyCODONE HCL/ACETAMINOPHEN 1 tab PO DAILY PRN 04/16/25 04/16/25 History [Percocet 10-325 mg] Amoxic-Pot Clav 875-125Mg 1 tab PO Q12HR 5 Days #10 tab 04/18/25 Rx [Augmentin 875-125] Allergies Allergy/AdvReac Type Severity Reaction Status Date / Time hydromorphone HCl Allergy Anaphylaxis Verified 04/16/25 07:31 [From Dilaudid] propoxyphene Allergy Rash/Hives Verified 04/16/25 07:31 [From Darvocet-N] tramadol Allergy Anaphylaxis Verified 04/16/25 07:31 ibuprofen [From Motrin] AdvReac unable to Verified 04/16/25 07:31 take due to kidney disease venom-honey bee AdvReac passes out Verified 04/16/25 07:31 [bee venom (honey bee)] Surgical - Exam Vital Signs Temp Pulse Resp BP Pulse Ox 98.5 F 90 18 204/113 100 04/16/25 07:26 04/16/25 07:26 04/16/25 07:26 04/16/25 07:26 04/16/25 07:26 No swelling noted extraorally. Slight redness intraorally around tooth #21. Tooth #21 significantly broken at the gumline and nonrestorable. Patient denies numbness of the mental nerve in this area. Patient is able to open her mouth within normal limits no airway impingement. Results - Labs 04/20/25 07:23 04/20/25 07:23 Abnormal Lab Results - Last 24 Hours (Table) 04/19/25 04/19/25 04/20/25 Range/Units 16:33 20:47 06:55 RBC (4.10-5.20) 10*6/uL Hgb (12.0-15.0) g/dL Hct (37.2-46.3) % MCV (80.0-97.0) fL MCH (27.0-32.0) pg Eosinophils # (0.04-0.35) 10*3/uL Sodium (137-145) mmol/L Potassium (3.5-5.1) mmol/L Chloride (98-107) mmol/L BUN (7-17) mg/dL Creatinine (0.52-1.04) mg/dL Glucose (74-99) mg/dL POC Glucose (mg/dL) 545 H* 422 H 184 H (70-110) mg/dL 04/20/25 04/20/25 04/20/25 Range/Units 07:23 07:23 11:28 RBC 3.19 L (4.10-5.20) 10*6/uL Hgb 10.4 L (12.0-15.0) g/dL Hct 31.4 L (37.2-46.3) % MCV 98.4 H (80.0-97.0) fL MCH 32.6 H (27.0-32.0) pg Eosinophils # 0.69 H (0.04-0.35) 10*3/uL Sodium 131 L (137-145) mmol/L Potassium 6.1 H* (3.5-5.1) mmol/L Chloride 89 L (98-107) mmol/L BUN 48 H (7-17) mg/dL Creatinine 4.61 H (0.52-1.04) mg/dL Glucose 177 H (74-99) mg/dL POC Glucose (mg/dL) 196 H (70-110) mg/dL Diabetes panel 04/20/25 Range/Units 07:23 Sodium 131 L (137-145) mmol/L Potassium 6.1 H* (3.5-5.1) mmol/L Chloride 89 L (98-107) mmol/L Carbon Dioxide 28 (22-30) mmol/L BUN 48 H (7-17) mg/dL Creatinine 4.61 H (0.52-1.04) mg/dL Glucose 177 H (74-99) mg/dL Calcium 9.1 (8.4-10.2) mg/dL Calcium panel 04/20/25 Range/Units 07:23 Calcium 9.1 (8.4-10.2) mg/dL Pituitary panel 04/20/25 Range/Units 07:23 Sodium 131 L (137-145) mmol/L Potassium 6.1 H* (3.5-5.1) mmol/L Chloride 89 L (98-107) mmol/L Carbon Dioxide 28 (22-30) mmol/L BUN 48 H (7-17) mg/dL Creatinine 4.61 H (0.52-1.04) mg/dL Glucose 177 H (74-99) mg/dL Calcium 9.1 (8.4-10.2) mg/dL Adrenal panel 04/20/25 Range/Units 07:23 Sodium 131 L (137-145) mmol/L Potassium 6.1 H* (3.5-5.1) mmol/L Chloride 89 L (98-107) mmol/L Carbon Dioxide 28 (22-30) mmol/L BUN 48 H (7-17) mg/dL Creatinine 4.61 H (0.52-1.04) mg/dL Glucose 177 H (74-99) mg/dL Calcium 9.1 (8.4-10.2) mg/dL - Imaging Comments: CAT scan of tooth #21 reviewed does appear to be chronic infection and associated with the root tip and some buccal bone destruction. Assessment and Plan Assessment: Chronic dental abscess associated with tooth #21 appears to be responding to current treatment Plan: Recommend patient continue on current treatment until eligible for discharge. Patient reports social barriers preventing extractions over the past year and a half. Recommend social work consult in an effort to clarify what these barriers are and assist her. Time with Patient: Greater than 30
[2025-04-20 16:44] LABS: Glucose,Whole Blood 294 mg/dL (70-110)
[2025-04-20 20:16] LABS: Glucose,Whole Blood 201 mg/dL (70-110)
[2025-04-21 06:22] LABS: Glucose,Whole Blood 397 mg/dL (70-110)
--- NOTE | 2025-04-21 08:08 | P.PN ---
Subjective Progress Note Date: 04/20/25 Patient is 35-year-old female coming complaint of shortness of breath found to have pulm edema. Patient usually uses 2 and half to 3 L of oxygen presently on 2-1/2 to 3 L oxygen. Patient is on hemodialysis and did not miss her hemodialysis as per the patient. Patient blood pressure is significantly higher patient is also complaining of chest pain which appears to be musculoskeletal but has a pleuritic component and patient had a cardiac workup in the recent past, had a cardia catheterization which did not show any atherosclerotic occlusive disease. Patient had echocardiogram showed normal ejection fraction although does have left ventricular hypertrophy from uncontrolled blood pressure. Patient is complaining of headache. Which is chronic for her does take Percocet at home and requesting for Percocet 04/17/2025 Patient is evaluated in follow-up on the cardiac unit. She underwent hemo dialysis yesterday had a net output of 4 L off. Repeat blood work today reveals a potassium level of 5.4 BUN of 54 creatinine of 4.95. Currently has excision saturation 100% on 3 L of oxygen via nasal cannula. Blood pressure is 168/101. Patient reports having multiple episodes of loose stools. States she is having some mild abdominal discomfort. Also having cough. 04/18/2025 Patient evaluated in follow up on the cardiac unit. Underwent hemodialysis. Potassium came back at 5. Was given cocktail as well as keyaxelate and her potassium only came down to 5.7. Discharge will be held. 04/19/2025 Patient evaluated today in follow up. Potassium 6.0 today. Patient on lokelma 10 mg three times daily and will undergo hemodialysis today. Complaining of purulent drainage from tooth #21 and the tooth is cracked and decayed with significant drainage noted and concern for abscess and that tooth will likely need to be extracted. Maxillofacial surgery and ID have been consulted. 04/20/2025 Patient seen and evaluated in follow-up today lethargic although arousable continuing to report mild pain. Patient was started on antibiotics in the form of ampicillin and infectious disease consulted along with Facial surgery. Apparently patient has yet to follow-up outpatient regarding dentition as caroline lewis was to have the remaining teeth removed. CT does reveal a premolar abscess on the left, tooth #21. Dr. Rodriguez consulted and appreciate input and recommendations. Patient to continue on dialysis with nephrology following closely. Follow-up on repeat labs monitor potassium and kidney functions closely. Potassium was 6.1 today. Sodium 131. Continue monitoring Accu-Cheks as blood sugars are uncontrolled and have been elevated. Chronically ill- appearing Review of Systems Constitutional: Denied any fatigue denied any fever. Cardio vascular: denied any chest pain, palpitations Gastrointestinal: denied any nausea, vomiting, Reports diarrhea. Pulmonary: Denied any shortness of breath cough Neurologic denied any new focal deficits All inpatient medications were reviewed and appropriate changes in these medications as dictated in the interval history and assessment and plan. PHYSICAL EXAMINATION: GENERAL: The patient is alert and oriented x3, not in any acute distress. Well developed, well nourished. HEENT: Pupils are round and equally reacting to light. EOMI. No scleral icterus. No conjunctival pallor. Normocephalic, atraumatic. No pharyngeal erythema. No thyromegaly. CARDIOVASCULAR: S1 and S2 present. No murmurs, rubs, or gallops. PULMONARY: Diminished breath sounds bilaterally otherwise chest is clear to auscultation, no wheezing or crackles. ABDOMEN: Soft, LLQ tender, nondistended, normoactive bowel sounds. No palpable organomegaly. MUSCULOSKELETAL: No joint swelling or deformity. EXTREMITIES: No cyanosis, clubbing, or pedal edema. NEUROLOGICAL: Gross neurological examination did not reveal any focal deficits. SKIN: No rashes. Assessment: - Acute on chronic hypoxic respiratory failure secondary to pulmonary edema. - Dental abscess; CT panorex revealed left premolar abscess of tooth #21, continue IV unasyn and ID consultation along with maxillofacial surgery for evaluation - Hyperkalemia secondary to end-stage renal disease patient to undergo h emodialysis today - Mild nonspecific elevation of AST and ALT will repeat liver enzymes tomorrow again - Diarrhea likely viral gastroenteritis - Type 2 diabetes mellitus - Uncontrolled hypertension or accelerated hypertension as patient did not receive her medications once verified these medications will be reordered - Seizure disorder - Hypothyroidism - Gastroesophageal reflux disease - Chronic pain: Patient's chest pain is a part of chronic pain I do not believe patient has a pulmonary embolism or coronary artery disease. Patient has recent cardiac catheterization which showed clean coronaries GI prophylaxis DVT prophylaxis: Patient will be started on subcutaneous heparin Full code Plan Hemodialysis per nephrology. Continue albuterol PRN and cepacol for cough. Hold discharge for the hyperkalemia. Hemodialysis per nephrology. ID consultation pending for left lower tooth abscess and dental fracture, IV unasyn and await maxillofacial surgery consult. Apparently patient was evaluat ed and supposed to be having remaining teeth removed although due to social barriers and frequent hospitalizations and significant comorbidities, patient has been unable to follow-up. Also noted per Dr. Rodriguez, her insurance is not accepted at their facility. Patient should contact insurance regarding covered benefits The impression and plan of care has been dictated by Margie Urbina, Nurse Practitioner as directed. Dr. Roro MD I have performed a history and physical examination and medical decision making of this patient, discussed the same with the dictator, and agree with the dictators assessment and plan as written, documented as a scribe. Based on total visit time, I have performed more than 50% of this visit. Objective - Vital Signs Vital signs: Vital Signs Temp 97.9 F 04/21/25 07:45 Pulse 87 04/21/25 07:45 Resp 18 04/21/25 07:45 BP 191/97 04/21/25 07:45 Pulse Ox 98 04/21/25 07:45 FiO2 Intake & Output 04/20/25 04/21/25 04/21/25 18:59 06:59 18:59 Intake Total 902 60 10 Output Total 8400 0 Balance -7498 60 10 Weight 68.9 kg Intake: IV 40 10 10 0.9 10 Invasive Line 3 30 Invasive Line 4 10 Invasive Line 5 10 Intake, IV Titration 50 Amount Ampicillin-Sulbactam 1.5 50 gm In Sodium Chloride 0.9 % 50 ml @ 100 mls/hr IVPB Q6HR [facility] Rx#:[id number] Oral 462 Hemodialysis 400 Output: Urine 0 Stool 0 0 Urine/Stool Mix 0 Emesis 0 Oral Regurgitation 0 Hemodialysis 4400 Hemodialysis Net Amount 4000 Other 0 Other: Voiding Method Toilet Toilet Toilet # Voids 0 1 # Bowel Movements 0 - Labs CBC & Chem 7: 04/20/25 07:23 04/20/25 07:23 Labs: Abnormal Lab Results - Last 24 Hours (Table) 04/20/25 04/20/25 04/20/25 Range/Units 07:23 11:28 16:43 Sodium 131 L (137-145) mmol/L Potassium 6.1 H* (3.5-5.1) mmol/L Chloride 89 L (98-107) mmol/L BUN 48 H (7-17) mg/dL Creatinine 4.61 H (0.52-1.04) mg/dL Glucose 177 H (74-99) mg/dL POC Glucose (mg/dL) 196 H 294 H (70-110) mg/dL 04/20/25 04/21/25 Range/Units 20:15 06:21 Sodium (137-145) mmol/L Potassium (3.5-5.1) mmol/L Chloride (98-107) mmol/L BUN (7-17) mg/dL Creatinine (0.52-1.04) mg/dL Glucose (74-99) mg/dL POC Glucose (mg/dL) 201 H 397 H (70-110) mg/dL
[2025-04-21 09:45] LABS: Glucose,Whole Blood 59 mg/dL (70-110)
[2025-04-21 10:09] LABS: Glucose,Whole Blood 65 mg/dL (70-110)
[2025-04-21 10:26] LABS: Glucose,Whole Blood 83 mg/dL (70-110)
[2025-04-21 11:36] LABS: Glucose,Whole Blood 111 mg/dL (70-110)
--- NOTE | 2025-04-21 12:30 | P.PN ---
Subjective Patient is seen for follow-up for end-stage renal disease. Seen on hemodialysis Blood pressure is low today. We will hold off on any further ultrafiltration. Patient has had about 22 L of fluid taken off over the last 1 week Blood sugar has been fluctuating. Tooth pain is better Objective - Vital Signs Vital signs: Vital Signs Temp 97.5 F L 04/21/25 11:27 Pulse 82 04/21/25 11:27 Resp 18 04/21/25 11:27 BP 131/70 04/21/25 11:27 Pulse Ox 95 04/21/25 11:27 FiO2 Intake & Output 04/20/25 04/21/25 04/21/25 18:59 06:59 18:59 Intake Total 902 60 246 Output Total 8400 0 Balance -7498 60 246 Weight 68.9 kg Intake: IV 40 10 246 0.9 10 236 Invasive Line 3 30 Invasive Line 4 10 Invasive Line 5 10 Intake, IV Titration 50 Amount Ampicillin-Sulbactam 1.5 50 gm In Sodium Chloride 0.9 % 50 ml @ 100 mls/hr IVPB Q6HR [facility] Rx#:[id number] Oral 462 Hemodialysis 400 Output: Urine 0 Stool 0 0 Urine/Stool Mix 0 Emesis 0 Oral Regurgitation 0 Hemodialysis 4400 Hemodialysis Net Amount 4000 Other 0 Other: Voiding Method Toilet Toilet Toilet # Voids 0 1 # Bowel Movements 0 - Exam Patient is awake, comfortable, no acute distress, mildly short of breath Examination of the heart S1 and S2 Examination of the lungs bilateral breath sounds are heard with basal crackles Examination lower extremity shows trace edema [employer] exam grossly intact - Labs CBC & Chem 7: 04/20/25 07:23 04/20/25 07:23 Labs: Abnormal Lab Results - Last 24 Hours (Table) 04/20/25 04/20/25 04/21/25 Range/Units 16:43 20:15 06:21 POC Glucose (mg/dL) 294 H 201 H 397 H (70-110) mg/dL 04/21/25 04/21/25 04/21/25 Range/Units 09:44 10:08 11:34 POC Glucose (mg/dL) 59 L 65 L 111 H (70-110) mg/dL Assessment and Plan Assessment: 1. End-stage renal disease on hemodialysis on Wednesday schedule as outpatient 2. Volume overload, improved. Patient has had 22 L of fluid taken off over the last 1 week 3. Hyperkalemia, improved with dialysis 4. Acute hypoxic respiratory failure secondary to volume overload, improved 5. Hypertension, uncontrolled due to volume overload 6. Dental abscess maintained on antibiotics Plan: Decrease UF as blood pressure is now low Next dialysis on 04/23/2025 Continue with antihypertensive medications Continue with PhosLo with meals Continue with antibiotics for tooth abscess
[2025-04-21 13:36] LABS: Basophils # (A) 0.06 10*3/uL (0.00-0.10); Basophils % (A) 0.6 %; Eosinophils # (A) 0.77 10*3/uL (0.04-0.35); Eosinophils % (A) 8.1 %; Lymphocytes # (A) 0.45 10*3/uL (0.90-5.00); Lymphocytes % (A) 4.7 %; MCH 32.3 pg (27.0-32.0); MCHC 33.3 g/dL (32.0-37.0); MCV 96.8 fL (80.0-97.0); Monocytes # (A) 1.02 10*3/uL (0.20-1.00); Monocytes % (A) 10.7 %; Neutrophils # (A) 7.16 10*3/uL (1.80-7.70); Neutrophils % (A) 75.5 %; Platelet Count 227 10*3/uL (140-440); RBC 3.41 10*6/uL (4.10-5.20); RDW 15.9 % (11.5-14.5)
[2025-04-21 14:02] LABS: ALT 38 U/L (4-34); AST 25 U/L (14-36); African American GFR (CKD) 31 (>60 ml/min/1.73 sqM); Albumin 4.3 g/dL (3.5-5.0); Alkaline Phosphatase 143 U/L (38-126); Anion Gap 11 mmol/L; Blood Urea Nitrogen 22 mg/dL (7-17); Calcium 9.4 mg/dL (8.4-10.2); Carbon Dioxide 29 mmol/L (22-30); Chloride 90 mmol/L (98-107); Glucose 264 mg/dL (74-99); Magnesium 1.7 mg/dL (1.6-2.3); Non-African American GFR(CKD) 27 (>60 ml/min/1.73 sqM); Potassium 5.3 mmol/L (3.5-5.1); Sodium 130 mmol/L (137-145); Total Bilirubin 0.6 mg/dL (0.2-1.3); Total Protein 7.1 g/dL (6.3-8.2)
[2025-04-21 16:38] LABS: Glucose,Whole Blood 326 mg/dL (70-110)
[2025-04-21 20:42] LABS: Glucose,Whole Blood 164 mg/dL (70-110)
[2025-04-22 04:07] LABS: Glucose,Whole Blood 351 mg/dL (70-110)
[2025-04-22 06:09] LABS: Glucose,Whole Blood 431 mg/dL (70-110)
--- NOTE | 2025-04-22 07:26 | P.PN ---
Subjective Progress Note Date: 04/21/25 Patient is 35-year-old female coming complaint of shortness of breath found to have pulm edema. Patient usually uses 2 and half to 3 L of oxygen presently on 2-1/2 to 3 L oxygen. Patient is on hemodialysis and did not miss her hemodialysis as per the patient. Patient blood pressure is significantly higher patient is also complaining of chest pain which appears to be musculoskeletal but has a pleuritic component and patient had a cardiac workup in the recent past, had a cardia catheterization which did not show any atherosclerotic occlusive disease. Patient had echocardiogram showed normal ejection fraction although does have left ventricular hypertrophy from uncontrolled blood pressure. Patient is complaining of headache. Which is chronic for her does take Percocet at home and requesting for Percocet 04/17/2025 Patient is evaluated in follow-up on the cardiac unit. She underwent hemo dialysis yesterday had a net output of 4 L off. Repeat blood work today reveals a potassium level of 5.4 BUN of 54 creatinine of 4.95. Currently has excision saturation 100% on 3 L of oxygen via nasal cannula. Blood pressure is 168/101. Patient reports having multiple episodes of loose stools. States she is having some mild abdominal discomfort. Also having cough. 04/18/2025 Patient evaluated in follow up on the cardiac unit. Underwent hemodialysis. Potassium came back at 5. Was given cocktail as well as keyaxelate and her potassium only came down to 5.7. Discharge will be held. 04/19/2025 Patient evaluated today in follow up. Potassium 6.0 today. Patient on lokelma 10 mg three times daily and will undergo hemodialysis today. Complaining of purulent drainage from tooth #21 and the tooth is cracked and decayed with significant drainage noted and concern for abscess and that tooth will likely need to be extracted. Maxillofacial surgery and ID have been consulted. 04/20/2025 Patient seen and evaluated in follow-up today lethargic although arousable continuing to report mild pain. Patient was started on antibiotics in the form of ampicillin and infectious disease consulted along with Facial surgery. Apparently patient has yet to follow-up outpatient regarding dentition as caroline lewis was to have the remaining teeth removed. CT does reveal a premolar abscess on the left, tooth #21. Dr. Rodriguez consulted and appreciate input and recommendations. Patient to continue on dialysis with nephrology following closely. Follow-up on repeat labs monitor potassium and kidney functions closely. Potassium was 6.1 today. Sodium 131. Continue monitoring Accu-Cheks as blood sugars are uncontrolled and have been elevated. Chronically ill- appearing 04/21/2025 Patient is seen in follow-up this morning with multiple consultations following. Continued on hemodialysis continues with overload and will continue on dialysis regimen. Patient was evaluated by maxillo-facial surgery with no immediate plans for surgical intervention recommending outpatient follow-up. Patient to call insurance and verify coverage as his office does not accept her insurance at this time. Patient reports to improvement in drainage and apparently the abscess has been popped and draining at that left front tooth. Patient is continued on antibiotics with infectious disease following and awaiting cultu res. Will likely continue on antibiotic treatment for now and patient to follow-up outpatient. Will likely need medical clearance in the outpatient setting also regarding this dental procedure as patient is considered high risk with her significant comorbidities. Patient will need cardiology and nephrology clearance for this. Review of Systems Constitutional: Denied any fatigue denied any fever. Cardio vascular: denied any chest pain, palpitations Gastrointestinal: denied any nausea, vomiting, Reports diarrhea. Pulmonary: Denied any shortness of breath cough Neurologic denied any new focal deficits All inpatient medications were reviewed and appropriate changes in these medications as dictated in the interval history and assessment and plan. PHYSICAL EXAMINATION: GENERAL: The patient is alert and oriented x3, not in any acute distress. Well developed, well nourished. HEENT: Pupils are round and equally reacting to light. EOMI. No scleral icterus. No conjunctival pallor. Normocephalic, atraumatic. No pharyngeal erythema. No thyromegaly. Extremely poor dentition with multiple dental caries and missing teeth with fractures CARDIOVASCULAR: S1 and S2 present. No murmurs, rubs, or gallops. PULMONARY: Diminished breath sounds bilaterally otherwise chest is clear to auscultation, no wheezing or crackles. ABDOMEN: Soft, LLQ tender, nondistended, normoactive bowel sounds. No palpable organomegaly. MUSCULOSKELETAL: No joint swelling or deformity. EXTREMITIES: No cyanosis, clubbing, or pedal edema. NEUROLOGICAL: Gross neurological examination did not reveal any focal deficits. SKIN: No rashes. Assessment: - Acute on chronic hypoxic respiratory failure secondary to pulmonary edema. - Dental abscess; CT panorex revealed left premolar abscess of tooth #21, continue IV unasyn and ID following along with maxillofacial surgery for evaluation - Hyperkalemia secondary to end-stage renal disease patient to undergo hemodialysis today - Mild nonspecific elevation of AST and ALT will repeat liver enzymes tomorrow again - Diarrhea likely viral gastroenteritis - Type 2 diabetes mellitus - Uncontrolled hypertension or accelerated hypertension as patient did not recei ve her medications once verified these medications will be reordered - Seizure disorder - Hypothyroidism - Gastroesophageal reflux disease - Chronic pain: Patient's chest pain is a part of chronic pain I do not believe patient has a pulmonary embolism or coronary artery disease. Patient has recent cardiac catheterization which showed clean coronaries GI prophylaxis DVT prophylaxis: Patient will be started on subcutaneous heparin Full code Plan Hemodialysis per nephrology. Continue albuterol PRN and cepacol for cough. Hold discharge for the hyperkalemia. Hemodialysis per nephrology. ID following for left lower tooth abscess and dental fracture, IV unasyn and was evaluated by maxillofacial surgery with no immediate plans of surgical intervention at this time recommending outpatient follow-up. Apparently patient was evaluated and supposed to be having remaining teeth removed although due to social barriers and frequent hospitalizations and significant comorbidities, patient has been unable to follow-up. Also noted per Dr. Rodriguez, her insurance is not accepted at their facility. Patient should contact insurance regarding covered benefits. Patient will need cardiology and nephrology clearance prior to any surgical intervention Will discuss with consultations regarding possible discharge planning. Awaiting cultures at this time and will continue current antibiotic regimen The impression and plan of care has been dictated as a scribe by Margie Urbina, Nurse Practitioner as directed. Dr. Roro MD I have performed a history and physical examination and medical decision making of this patient, discussed the same with the dictator, and agree with the dictators assessment and plan as written, documented as a scribe. Based on total visit time, I have performed more than 50% of this visit. Objective - Vital Signs Vital signs: Vital Signs Temp 97.9 F 04/21/25 07:45 Pulse 87 04/21/25 07:45 Resp 18 04/21/25 07:45 BP 191/97 04/21/25 07:45 Pulse Ox 98 04/21/25 08:01 FiO2 Intake & Output 04/20/25 04/21/25 04/21/25 18:59 06:59 18:59 Intake Total 902 60 10 Output Total 8400 0 Balance -7498 60 10 Weight 68.9 kg Intake: IV 40 10 10 0.9 10 Invasive Line 3 30 Invasive Line 4 10 Invasive Line 5 10 Intake, IV Titration 50 Amount Ampicillin-Sulbactam 1.5 50 gm In Sodium Chloride 0.9 % 50 ml @ 100 mls/hr IVPB Q6HR [facility] Rx#:[id number] Oral 462 Hemodialysis 400 Output: Urine 0 Stool 0 0 Urine/Stool Mix 0 Emesis 0 Oral Regurgitation 0 Hemodialysis 4400 Hemodialysis Net Amount 4000 Other 0 Other: Voiding Method Toilet Toilet Toilet # Voids 0 1 # Bowel Movements 0 - Labs CBC & Chem 7: 04/21/25 13:26 04/21/25 13:26 Labs: Abnormal Lab Results - Last 24 Hours (Table) 04/20/25 04/20/25 04/20/25 Range/Units 07:23 11:28 16:43 Sodium 131 L (137-145) mmol/L Potassium 6.1 H* (3.5-5.1) mmol/L Chloride 89 L (98-107) mmol/L BUN 48 H (7-17) mg/dL Creatinine 4.61 H (0.52-1.04) mg/dL Glucose 177 H (74-99) mg/dL POC Glucose (mg/dL) 196 H 294 H (70-110) mg/dL 04/20/25 04/21/25 Range/Units 20:15 06:21 Sodium (137-145) mmol/L Potassium (3.5-5.1) mmol/L Chloride (98-107) mmol/L BUN (7-17) mg/dL Creatinine (0.52-1.04) mg/dL Glucose (74-99) mg/dL POC Glucose (mg/dL) 201 H 397 H (70-110) mg/dL
[2025-04-22 08:42] LABS: Glucose,Whole Blood 246 mg/dL (70-110)
[2025-04-22 11:42] LABS: Glucose,Whole Blood 91 mg/dL (70-110)
--- NOTE | 2025-04-22 13:03 | P.PN ---
Subjective Patient is seen for follow-up for end-stage renal disease. Status post hemodialysis yesterday with UF of 3.9 L Blood sugar has been fluctuating. Complaining of pain in the tooth on the left side of the mouth Objective - Vital Signs Vital signs: Vital Signs Temp 97.8 F 04/22/25 11:34 Pulse 76 04/22/25 11:34 Resp 18 04/22/25 11:34 BP 174/96 04/22/25 11:34 Pulse Ox 100 04/22/25 11:34 FiO2 Intake & Output 04/21/25 04/22/25 04/22/25 18:59 06:59 18:59 Intake Total 1714 10 Output Total 8388 Balance -6674 10 Weight 68.5 kg Intake: IV 256 10 0.9 236 10 Invasive Line 5 20 Oral 958 Hemodialysis 500 Output: Stool 0 Hemodialysis 4444 Hemodialysis Net Amount 3944 Other: Voiding Method Toilet Toilet Toilet # Voids 1 - Exam Patient is awake, comfortable, no acute distress, mildly short of breath Examination of the heart S1 and S2 Examination of the lungs bilateral breath sounds are heard with basal crackles In duration noted in the left lower mouth/gum area Examination lower extremity shows trace edema [employer] exam grossly intact - Labs CBC & Chem 7: 04/21/25 13:26 04/21/25 13:26 Labs: Abnormal Lab Results - Last 24 Hours (Table) 04/21/25 04/21/25 04/21/25 Range/Units 13:26 13:26 16:37 RBC 3.41 L (4.10-5.20) 10*6/uL Hgb 11.0 L (12.0-15.0) g/dL Hct 33.0 L (37.2-46.3) % MCH 32.3 H (27.0-32.0) pg Lymphocytes # 0.45 L (0.90-5.00) 10*3/uL Monocytes # 1.02 H (0.20-1.00) 10*3/uL Eosinophils # 0.77 H (0.04-0.35) 10*3/uL Sodium 130 L (137-145) mmol/L Potassium 5.3 H (3.5-5.1) mmol/L Chloride 90 L (98-107) mmol/L BUN 22 H (7-17) mg/dL Creatinine 2.32 H (0.52-1.04) mg/dL Glucose 264 H (74-99) mg/dL POC Glucose (mg/dL) 326 H (70-110) mg/dL ALT 38 H (4-34) U/L Alkaline Phosphatase 143 H (38-126) U/L 04/21/25 04/22/25 04/22/25 Range/Units 20:41 04:06 06:06 RBC (4.10-5.20) 10*6/uL Hgb (12.0-15.0) g/dL Hct (37.2-46.3) % MCH (27.0-32.0) pg Lymphocytes # (0.90-5.00) 10*3/uL Monocytes # (0.20-1.00) 10*3/uL Eosinophils # (0.04-0.35) 10*3/uL Sodium (137-145) mmol/L Potassium (3.5-5.1) mmol/L Chloride (98-107) mmol/L BUN (7-17) mg/dL Creatinine (0.52-1.04) mg/dL Glucose (74-99) mg/dL POC Glucose (mg/dL) 164 H 351 H 431 H (70-110) mg/dL ALT (4-34) U/L Alkaline Phosphatase (38-126) U/L 04/22/25 Range/Units 08:40 RBC (4.10-5.20) 10*6/uL Hgb (12.0-15.0) g/dL Hct (37.2-46.3) % MCH (27.0-32.0) pg Lymphocytes # (0.90-5.00) 10*3/uL Monocytes # (0.20-1.00) 10*3/uL Eosinophils # (0.04-0.35) 10*3/uL Sodium (137-145) mmol/L Potassium (3.5-5.1) mmol/L Chloride (98-107) mmol/L BUN (7-17) mg/dL Creatinine (0.52-1.04) mg/dL Glucose (74-99) mg/dL POC Glucose (mg/dL) 246 H (70-110) mg/dL ALT (4-34) U/L Alkaline Phosphatase (38-126) U/L Assessment and Plan Assessment: 1. End-stage renal disease on hemodialysis on Wednesday schedule as outpatient 2. Volume overload, improved. Patient has had 22 L of fluid taken off over the last 1 week 3. Hyperkalemia, improved with dialysis 4. Acute hypoxic respiratory failure secondary to volume overload, improved 5. Hypertension, uncontrolled due to volume overload 6. Dental abscess maintained on antibiotics Plan: Hemodialysis in a.m. Continue with antihypertensive medications Continue with PhosLo with meals Continue with antibiotics for tooth abscess
[2025-04-22 16:18] LABS: Glucose,Whole Blood 90 mg/dL (70-110)
[2025-04-22 20:51] LABS: Glucose,Whole Blood 176 mg/dL (70-110)
--- NOTE | 2025-04-22 21:58 | P.PN ---
Subjective Progress Note Date: 04/22/25 Patient is 35-year-old female coming complaint of shortness of breath found to have pulm edema. Patient usually uses 2 and half to 3 L of oxygen presently on 2-1/2 to 3 L oxygen. Patient is on hemodialysis and did not miss her hemodialysis as per the patient. Patient blood pressure is significantly higher patient is also complaining of chest pain which appears to be musculoskeletal but has a pleuritic component and patient had a cardiac workup in the recent past, had a cardia catheterization which did not show any atherosclerotic occlusive disease. Patient had echocardiogram showed normal ejection fraction although does have left ventricular hypertrophy from uncontrolled blood pressure. Patient is complaining of headache. Which is chronic for her does take Percocet at home and requesting for Percocet 04/17/2025 Patient is evaluated in follow-up on the cardiac unit. She underwent hemo dialysis yesterday had a net output of 4 L off. Repeat blood work today reveals a potassium level of 5.4 BUN of 54 creatinine of 4.95. Currently has excision saturation 100% on 3 L of oxygen via nasal cannula. Blood pressure is 168/101. Patient reports having multiple episodes of loose stools. States she is having some mild abdominal discomfort. Also having cough. 04/18/2025 Patient evaluated in follow up on the cardiac unit. Underwent hemodialysis. Potassium came back at 5. Was given cocktail as well as keyaxelate and her potassium only came down to 5.7. Discharge will be held. 04/19/2025 Patient evaluated today in follow up. Potassium 6.0 today. Patient on lokelma 10 mg three times daily and will undergo hemodialysis today. Complaining of purulent drainage from tooth #21 and the tooth is cracked and decayed with significant drainage noted and concern for abscess and that tooth will likely need to be extracted. Maxillofacial surgery and ID have been consulted. 04/20/2025 Patient seen and evaluated in follow-up today lethargic although arousable continuing to report mild pain. Patient was started on antibiotics in the form of ampicillin and infectious disease consulted along with Facial surgery. Apparently patient has yet to follow-up outpatient regarding dentition as caroline leiws was to have the remaining teeth removed. CT does reveal a premolar abscess on the left, tooth #21. Dr. Rodriguez consulted and appreciate input and recommendations. Patient to continue on dialysis with nephrology following closely. Follow-up on repeat labs monitor potassium and kidney functions closely. Potassium was 6.1 today. Sodium 131. Continue monitoring Accu-Cheks as blood sugars are uncontrolled and have been elevated. Chronically ill- appearing 04/21/2025 Patient is seen in follow-up this morning with multiple consultations following. Continued on hemodialysis continues with overload and will continue on dialysis regimen. Patient was evaluated by maxillo-facial surgery with no immediate plans for surgical intervention recommending outpatient follow-up. Patient to call insurance and verify coverage as his office does not accept her insurance at this time. Patient reports to improvement in drainage and apparently the abscess has been popped and draining at that left front tooth. Patient is continued on antibiotics with infectious disease following and awaiting cultu res. Will likely continue on antibiotic treatment for now and patient to follow-up outpatient. Will likely need medical clearance in the outpatient setting also regarding this dental procedure as patient is considered high risk with her significant comorbidities. Patient will need cardiology and nephrology clearance for this. 04/22/2025 Patient is seen in follow-up today continue on antibiotics per infectious disease recommendations and will continue at this time. Continue on hemodialysis per nephrology discuss further regarding possible discharge planning. Will follow-up on repeat labs and monitor potassium closely. Sodium has been trending down. Blood sugars extremely uncontrolled the patient was elevated but does drop quickly, will continue current regimen. Encouraged increased activity as tolerated Review of Systems Constitutional: Denied any fatigue denied any fever. Cardio vascular: denied any chest pain, palpitations Gastrointestinal: denied any nausea, vomiting, Reports diarrhea, appears chronic Pulmonary: Denied any shortness of breath cough Neurologic denied any new focal deficits All inpatient medications were reviewed and appropriate changes in these medications as dictated in the interval history and assessment and plan. PHYSICAL EXAMINATION: GENERAL: The patient is alert and oriented x3, not in any acute distress. Well developed, well nourished. HEENT: Pupils are round and equally reacting to light. EOMI. No scleral icterus. No conjunctival pallor. Normocephalic, atraumatic. No pharyngeal erythema. No thyromegaly. Extremely poor dentition with multiple dental caries and missing teeth with fractures CARDIOVASCULAR: S1 and S2 present. No murmurs, rubs, or gallops. PULMONARY: Diminished breath sounds bilaterally otherwise chest is clear to aus cultation, no wheezing or crackles. ABDOMEN: Soft, LLQ tender, nondistended, normoactive bowel sounds. No palpable organomegaly. MUSCULOSKELETAL: No joint swelling or deformity. EXTREMITIES: No cyanosis, clubbing, or pedal edema. NEUROLOGICAL: Gross neurological examination did not reveal any focal deficits. SKIN: No rashes. Assessment: - Acute on chronic hypoxic respiratory failure secondary to pulmonary edema. - Dental abscess; CT panorex revealed left premolar abscess of tooth #21, c ontinue IV unasyn and ID following along with maxillofacial surgery for evaluation - Hyperkalemia secondary to end-stage renal disease patient to continue hemodialysis - Mild nonspecific elevation of AST and ALT will repeat liver enzymes tomorrow again - Diarrhea likely viral gastroenteritis - Type 2 diabetes mellitus - Uncontrolled hypertension with accelerated hypertension on admission - Seizure disorder - Hypothyroidism - Gastroesophageal reflux disease - Chronic pain: Patient's chest pain is a part of chronic pain I do not believe patient has a pulmonary embolism or coronary artery disease. Patient has recent cardiac catheterization which showed clean coronaries GI prophylaxis DVT prophylaxis: Patient currently on subcutaneous heparin Full code Plan Hemodialysis per nephrology. Continue albuterol PRN and cepacol for cough. Patient continues with hyperkalemia. Hemodialysis per nephrology. ID following for left lower tooth abscess and dental fracture, IV unasyn and was evaluated by maxillofacial surgery with no immediate plans of surgical intervention at this time recommending outpatient follow-up. Apparently patient was evaluated and supposed to be having remaining teeth removed although due to social barriers and frequent hospitalizations and significant comorbidities, patient has been unable to follow-up. Also noted per Dr. Rodriguez, her insurance is not accepted at their facility. Patient should contact insurance regarding covered benefits. Patient will need cardiology and nephrology clearance prior to any surgical intervention Will discuss with consultations regarding possible discharge planning. Possibly in the next 24 hours The impression and plan of care has been dictated as a scribe by Margie Urbina Nurse Practitioner as directed. Dr. Roro MD I have performed a history and physical examination and medical decision making of this patient, discussed the same with the dictator, and agree with the dictators assessment and plan as written, documented as a scribe. Based on total visit time, I have performed more than 50% of this visit. Objective - Vital Signs Vital signs: Vital Signs Temp 97.8 F 04/22/25 04:00 Pulse 76 04/22/25 04:00 Resp 18 04/22/25 04:00 BP 194/96 04/22/25 04:00 Pulse Ox 100 04/22/25 04:00 FiO2 Intake & Output 04/21/25 04/22/25 04/22/25 18:59 06:59 18:59 Intake Total 1714 10 Output Total 8388 Balance -6674 10 Weight 68.5 kg Intake: IV 256 10 0.9 236 10 Invasive Line 5 20 Oral 958 Hemodialysis 500 Output: Stool 0 Hemodialysis 4444 Hemodialysis Net Amount 3944 Other: Voiding Method Toilet Toilet # Voids 1 - Labs CBC & Chem 7: 04/21/25 13:26 04/21/25 13:26 Labs: Abnormal Lab Results - Last 24 Hours (Table) 04/21/25 04/21/25 04/21/25 Range/Units 09:44 10:08 11:34 RBC (4.10-5.20) 10*6/uL Hgb (12.0-15.0) g/dL Hct (37.2-46.3) % MCH (27.0-32.0) pg Lymphocytes # (0.90-5.00) 10*3/uL Monocytes # (0.20-1.00) 10*3/uL Eosinophils # (0.04-0.35) 10*3/uL Sodium (137-145) mmol/L Potassium (3.5-5.1) mmol/L Chloride (98-107) mmol/L BUN (7-17) mg/dL Creatinine (0.52-1.04) mg/dL Glucose (74-99) mg/dL POC Glucose (mg/dL) 59 L 65 L 111 H (70-110) mg/dL ALT (4-34) U/L Alkaline Phosphatase (38-126) U/L 04/21/25 04/21/25 04/21/25 Range/Units 13:26 13:26 16:37 RBC 3.41 L (4.10-5.20) 10*6/uL Hgb 11.0 L (12.0-15.0) g/dL Hct 33.0 L (37.2-46.3) % MCH 32.3 H (27.0-32.0) pg Lymphocytes # 0.45 L (0.90-5.00) 10*3/uL Monocytes # 1.02 H (0.20-1.00) 10*3/uL Eosinophils # 0.77 H (0.04-0.35) 10*3/uL Sodium 130 L (137-145) mmol/L Potassium 5.3 H (3.5-5.1) mmol/L Chloride 90 L (98-107) mmol/L BUN 22 H (7-17) mg/dL Creatinine 2.32 H (0.52-1.04) mg/dL Glucose 264 H (74-99) mg/dL POC Glucose (mg/dL) 326 H (70-110) mg/dL ALT 38 H (4-34) U/L Alkaline Phosphatase 143 H (38-126) U/L 04/21/25 04/22/25 04/22/25 Range/Units 20:41 04:06 06:06 RBC (4.10-5.20) 10*6/uL Hgb (12.0-15.0) g/dL Hct (37.2-46.3) % MCH (27.0-32.0) pg Lymphocytes # (0.90-5.00) 10*3/uL Monocytes # (0.20-1.00) 10*3/uL Eosinophils # (0.04-0.35) 10*3/uL Sodium (137-145) mmol/L Potassium (3.5-5.1) mmol/L Chloride (98-107) mmol/L BUN (7-17) mg/dL Creatinine (0.52-1.04) mg/dL Glucose (74-99) mg/dL POC Glucose (mg/dL) 164 H 351 H 431 H (70-110) mg/dL ALT (4-34) U/L Alkaline Phosphatase (38-126) U/L
[2025-04-22 23:14] LABS: Glucose,Whole Blood 335 mg/dL (70-110)
[2025-04-23 06:02] LABS: Glucose,Whole Blood 154 mg/dL (70-110)
[2025-04-23 07:48] LABS: Basophils # (A) 0.08 10*3/uL (0.00-0.10); Basophils % (A) 1.1 %; Eosinophils # (A) 0.96 10*3/uL (0.04-0.35); Eosinophils % (A) 13.3 %; HCT 29.7 % (37.2-46.3); HGB 9.6 g/dL (12.0-15.0); Lymphocytes # (A) 1.14 10*3/uL (0.90-5.00); Lymphocytes % (A) 15.7 %; MCH 32.1 pg (27.0-32.0); MCHC 32.3 g/dL (32.0-37.0); MCV 99.3 fL (80.0-97.0); Mean Platelet Volume 10.3 fL (9.5-12.2); Monocytes # (A) 0.77 10*3/uL (0.20-1.00); Monocytes % (A) 10.6 %; Neutrophils # (A) 4.27 10*3/uL (1.80-7.70); Platelet Count 203 10*3/uL (140-440); RBC 2.99 10*6/uL (4.10-5.20); RDW 16.1 % (11.5-14.5); WBC 7.24 10*3/uL (4.50-10.00)
[2025-04-23 07:54] LABS: ALT 44 U/L (4-34); AST 45 U/L (14-36); African American GFR (CKD) 10 (>60 ml/min/1.73 sqM); Albumin 4.2 g/dL (3.5-5.0); Alkaline Phosphatase 118 U/L (38-126); Anion Gap 15 mmol/L; Blood Urea Nitrogen 63 mg/dL (7-17); Calcium 8.9 mg/dL (8.4-10.2); Carbon Dioxide 23 mmol/L (22-30); Chloride 92 mmol/L (98-107); Glucose 136 mg/dL (74-99); Non-African American GFR(CKD) 9 (>60 ml/min/1.73 sqM); Sodium 130 mmol/L (137-145); Total Bilirubin 0.8 mg/dL (0.2-1.3); Total Protein 6.6 g/dL (6.3-8.2)
[2025-04-23 08:06] LABS: Potassium 7.8 mmol/L (3.5-5.1)
[2025-04-23 09:14] LABS: Glucose,Whole Blood 90 mg/dL (70-110)
[2025-04-23] MEDS: INSULIN REGULAR 100 UNIT/ML VIAL (IV) IV ONE (09:59)
[2025-04-23] MEDS: CALCIUM GLUCONATE IN NACL 1 GM in SALINE 1 100ML.BAG IVPB ONE (09:59)
[2025-04-23] MEDS: DEXTROSE 50% SYRINGE 50 ML IVP STA (10:00)
[2025-04-23 11:17] VITALS: BMI 27.6
[2025-04-23 11:38] LABS: Glucose,Whole Blood 84 mg/dL (70-110)
[2025-04-23] MEDS: LIDOCAINE-PRILOCAINE 2.5-2.5% CREAM 5 GM TUBE TOPICAL STA (12:07)
--- NOTE | 2025-04-23 13:19 | P.PN ---
Subjective Progress Note Date: 04/22/25 Principal diagnosis: Reason for follow-up is abscessed tooth Patient is a 35-year-old female with a past medical history significant for Diabetes Mellitus, GERD/Reflux, Hypertension, Renal Disease, Seizure Disorder, Thyroid Disorder presenting to the hospital with difficulty breathing patient also complained of left lower jaw broken tooth with increasing pain and drainage concerning for infected tooth confirmed on the CT. On today's evaluation that is 04/22/2025, Patient is afebrile patient is currently on room air and denies having any shortness of breath, the patient denies any chest pain or cough, the patient denies any nausea vomiting did not have any abdominal pain and no diarrhea which is currently controlled did have some relief this morning but no culture taken No new lab has been obtained today Objective - Vital Signs Vital signs: Vital Signs Temp 98.2 F 04/22/25 15:46 Pulse 72 04/22/25 15:57 Resp 18 04/22/25 15:46 BP 146/79 04/22/25 15:46 Pulse Ox 98 04/22/25 15:49 FiO2 Intake & Output 04/21/25 04/22/25 04/22/25 18:59 06:59 18:59 Intake Total 1714 10 718 Output Total 8388 Balance -6674 10 718 Weight 68.5 kg Intake: IV 256 10 0.9 236 10 Invasive Line 5 20 Oral 958 718 Hemodialysis 500 Output: Stool 0 Hemodialysis 4444 Hemodialysis Net Amount 3944 Other: Voiding Method Toilet Toilet Toilet # Voids 1 - Exam GENERAL DESCRIPTION: Middle-age female lying in bed in no distress HEENT: Left lower jaw with a broken tooth some surrounding swelling RESPIRATORY SYSTEM: Unlabored breathing , decreased breath sounds at bases HEART: S1 S2 regular rate and rhythm , ABDOMEN: Soft , no tenderness EXTREMITIES: No edema feet - Labs CBC & Chem 7: 04/23/25 07:04 04/23/25 07:04 Labs: Abnormal Lab Results - Last 24 Hours (Table) 04/21/25 04/22/25 04/22/25 Range/Units 20:41 04:06 06:06 POC Glucose (mg/dL) 164 H 351 H 431 H (70-110) mg/dL 04/22/25 Range/Units 08:40 POC Glucose (mg/dL) 246 H (70-110) mg/dL Assessment and Plan (1) Abscessed tooth Current Visit: Yes Status: Acute Code(s): K04.7 - PERIAPICAL ABSCESS WITHOUT SINUS SNOMED Code(s): 135657277 Plan: 1patient with a left lower premolar broken tooth now complaining of pain and drainage in this patient who did have a CT we did shows abscessed tooth and some defect in the lower jaw will need to cover for the oral awa to be the likely pathogen 2-patient will benefit from dental surgery evaluation for removal of the infected tooth and deep culture, unfortunately dental surgery all staff does not take her insurance 3patient to continue with Unasyn and will transition to oral Augmentin on discharge Dictation was produced using [employer] dictation software. please excuse any grammatical, word or spelling errors. Time with Patient: Less than 30
--- NOTE | 2025-04-23 15:08 | P.PN ---
Subjective Patient is seen for follow-up for end-stage renal disease. Scheduled for hemodialysis today Potassium was elevated at 7.8. Blood sugar was 136 Objective - Vital Signs Vital signs: Vital Signs Temp 98 F 04/23/25 12:00 Pulse 62 04/23/25 12:00 Resp 16 04/23/25 12:00 BP 122/78 04/23/25 12:00 Pulse Ox 99 04/23/25 12:00 FiO2 Intake & Output 04/22/25 04/23/25 04/23/25 18:59 06:59 18:59 Intake Total 718 780 550 Balance 718 780 550 Weight 82.4 kg 82.4 kg Intake: IV 10 Invasive Line 5 10 Oral 718 780 540 Other: Voiding Method Toilet Toilet Toilet # Voids 3 0 - Exam Patient is awake, comfortable, no acute distress, mildly short of breath Examination of the heart S1 and S2 Examination of the lungs bilateral breath sounds are heard with basal crackles In duration noted in the left lower mouth/gum area Examination 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 - Labs CBC & Chem 7: 04/23/25 07:04 04/23/25 07:04 Labs: Abnormal Lab Results - Last 24 Hours (Table) 04/22/25 04/22/25 04/23/25 Range/Units 20:50 23:12 06:00 RBC (4.10-5.20) 10*6/uL Hgb (12.0-15.0) g/dL Hct (37.2-46.3) % MCV (80.0-97.0) fL MCH (27.0-32.0) pg Eosinophils # (0.04-0.35) 10*3/uL Sodium (137-145) mmol/L Potassium (3.5-5.1) mmol/L Chloride (98-107) mmol/L BUN (7-17) mg/dL Creatinine (0.52-1.04) mg/dL Glucose (74-99) mg/dL POC Glucose (mg/dL) 176 H 335 H 154 H (70-110) mg/dL AST (14-36) U/L ALT (4-34) U/L 04/23/25 04/23/25 Range/Units 07:04 07:04 RBC 2.99 L (4.10-5.20) 10*6/uL Hgb 9.6 L (12.0-15.0) g/dL Hct 29.7 L (37.2-46.3) % MCV 99.3 H (80.0-97.0) fL MCH 32.1 H (27.0-32.0) pg Eosinophils # 0.96 H (0.04-0.35) 10*3/uL Sodium 130 L (137-145) mmol/L Potassium 7.8 H* (3.5-5.1) mmol/L Chloride 92 L (98-107) mmol/L BUN 63 H (7-17) mg/dL Creatinine 5.87 H (0.52-1.04) mg/dL Glucose 136 H (74-99) mg/dL POC Glucose (mg/dL) (70-110) mg/dL AST 45 H (14-36) U/L ALT 44 H (4-34) U/L Assessment and Plan Assessment: 1. End-stage renal disease on hemodialysis on Wednesday schedule as outpatient 2. Volume overload, improved. Patient has had 22 L of fluid taken off over the last 1 week 3. Hyperkalemia, improved with dialysis, potassium was elevated again this morning at 7.8. Suspect dietary noncompliance 4. Acute hypoxic respiratory failure secondary to volume overload, improved 5. Hypertension, uncontrolled due to volume overload 6. Dental abscess maintained on antibiotics Plan: Hemodialysis today Continue with antihypertensive medications Continue with PhosLo with meals Continue with antibiotics for tooth abscess was managed with 1 g
[2025-04-23 17:15] LABS: Glucose,Whole Blood 275 mg/dL (70-110)
[2025-04-23 20:44] LABS: Glucose,Whole Blood 252 mg/dL (70-110)
[2025-04-24 04:29] LABS: Glucose,Whole Blood 380 mg/dL (70-110)
--- NOTE | 2025-04-24 05:01 | P.PN ---
Subjective Progress Note Date: 04/23/25 Patient is 35-year-old female coming complaint of shortness of breath found to have pulm edema. Patient usually uses 2 and half to 3 L of oxygen presently on 2-1/2 to 3 L oxygen. Patient is on hemodialysis and did not miss her hemodialysis as per the patient. Patient blood pressure is significantly higher patient is also complaining of chest pain which appears to be musculoskeletal but has a pleuritic component and patient had a cardiac workup in the recent past, had a cardia catheterization which did not show any atherosclerotic occlusive disease. Patient had echocardiogram showed normal ejection fraction although does have left ventricular hypertrophy from uncontrolled blood pressure. Patient is complaining of headache. Which is chronic for her does take Percocet at home and requesting for Percocet 04/17/2025 Patient is evaluated in follow-up on the cardiac unit. She underwent hemo dialysis yesterday had a net output of 4 L off. Repeat blood work today reveals a potassium level of 5.4 BUN of 54 creatinine of 4.95. Currently has excision saturation 100% on 3 L of oxygen via nasal cannula. Blood pressure is 168/101. Patient reports having multiple episodes of loose stools. States she is having some mild abdominal discomfort. Also having cough. 04/18/2025 Patient evaluated in follow up on the cardiac unit. Underwent hemodialysis. Potassium came back at 5. Was given cocktail as well as keyaxelate and her potassium only came down to 5.7. Discharge will be held. 04/19/2025 Patient evaluated today in follow up. Potassium 6.0 today. Patient on lokelma 10 mg three times daily and will undergo hemodialysis today. Complaining of purulent drainage from tooth #21 and the tooth is cracked and decayed with significant drainage noted and concern for abscess and that tooth will likely need to be extracted. Maxillofacial surgery and ID have been consulted. 04/20/2025 Patient seen and evaluated in follow-up today lethargic although arousable continuing to report mild pain. Patient was started on antibiotics in the form of ampicillin and infectious disease consulted along with Facial surgery. Apparently patient has yet to follow-up outpatient regarding dentition as caroline lewis was to have the remaining teeth removed. CT does reveal a premolar abscess on the left, tooth #21. Dr. Rodriguez consulted and appreciate input and recommendations. Patient to continue on dialysis with nephrology following closely. Follow-up on repeat labs monitor potassium and kidney functions closely. Potassium was 6.1 today. Sodium 131. Continue monitoring Accu-Cheks as blood sugars are uncontrolled and have been elevated. Chronically ill- appearing 04/21/2025 Patient is seen in follow-up this morning with multiple consultations following. Continued on hemodialysis continues with overload and will continue on dialysis regimen. Patient was evaluated by maxillo-facial surgery with no immediate plans for surgical intervention recommending outpatient follow-up. Patient to call insurance and verify coverage as his office does not accept her insurance at this time. Patient reports to improvement in drainage and apparently the abscess has been popped and draining at that left front tooth. Patient is continued on antibiotics with infectious disease following and awaiting cultu res. Will likely continue on antibiotic treatment for now and patient to follow-up outpatient. Will likely need medical clearance in the outpatient setting also regarding this dental procedure as patient is considered high risk with her significant comorbidities. Patient will need cardiology and nephrology clearance for this. 04/22/2025 Patient is seen in follow-up today continue on antibiotics per infectious disease recommendations and will continue at this time. Continue on hemodialysis per nephrology discuss further regarding possible discharge planning. Will follow-up on repeat labs and monitor potassium closely. Sodium has been trending down. Blood sugars extremely uncontrolled the patient was elevated but does drop quickly, will continue current regimen. Encouraged increased activity as tolerated 04/23/2025 Patient is seen in follow-up today scheduled to receive hemodialysis with nephrology following and patient is maintained on 4 days weekly. Patient continues on antibiotics with infectious disease following for tooth abscess recommending removing infected tooth. Patient was evaluated by dental surgeon with no plans of immediate tooth extraction as it would likely need to be done outpatient although her insurance is not accepted by the facility. Instructed patient and nursing staff to assist with contacting health insurance to discuss coverage benefits for this as patient has been following outpatient social barriers has not returned. Patient's potassium is elevated at 7.8 today we will did give a dose of Lokelma and follow-up on repeat labs. Hemodialysis likely on Wednesday as well. Will discuss with consultations regarding discharge planning. Review of Systems Constitutional: Denied any fatigue denied any fever. Cardio vascular: denied any chest pain, palpitations Gastrointestinal: denied any nausea, vomiting, Reports diarrhea, appears chronic Pulmonary: Denied any shortness of breath cough Neurologic denied any new focal deficits All inpatient medications were reviewed and appropriate changes in these medications as dictated in the interval history and assessment and plan. PHYSICAL EXAMINATION: GENERAL: The patient is alert and oriented x3, not in any acute distress. Well developed, well nourished. HEENT: Pupils are round and equally reacting to light. EOMI. No scleral icterus. No conjunctival pallor. Normocephalic, atraumatic. No pharyngeal erythema. No thyromegaly. Extremely poor dentition with multiple dental caries and missing teeth with fractures CARDIOVASCULAR: S1 and S2 present. No murmurs, rubs, or gallops. PULMONARY: Diminished breath sounds bilaterally otherwise chest is clear to auscultation, no wheezing or crackles. ABDOMEN: Soft, LLQ tender, nondistended, normoactive bowel sounds. No palpable organomegaly. MUSCULOSKELETAL: No joint swelling or deformity. EXTREMITIES: No cyanosis, clubbing, or pedal edema. NEUROLOGICAL: Gross neurological examination did not reveal any focal deficits. SKIN: No rashes. Assessment: - Acute on chronic hypoxic respiratory failure secondary to pulmonary edema. - Dental abscess; CT panorex revealed left premolar abscess of tooth #21, continue IV unasyn and ID following along with maxillofacial surgery for evaluation - Hyperkalemia secondary to end-stage renal disease, patient to continue hemodialysis - Mild nonspecific elevation of AST and ALT - Diarrhea likely viral gastroenteritis - Type 2 diabetes mellitus - Uncontrolled hypertension with accelerated hypertension on admission - Seizure disorder - Hypothyroidism - Gastroesophageal reflux disease - Chronic pain: Patient's chest pain is a part of chronic pain I do not believe patient has a pulmonary embolism or coronary artery disease. Patient has recent cardiac catheterization which showed clean coronaries GI prophylaxis DVT prophylaxis: Patient currently on subcutaneous heparin Full code Plan Hemodialysis per nephrology. Continue albuterol PRN and cepacol for cough. Patient continues with hyperkalemia. Potassium 7.8 today and given Lokelma and undergoing dialysis continue hemodialysis per nephrology and patient reportedly goes 4 days weekly. ID following for left lower tooth abscess and dental fracture, continued on IV unasyn and was evaluated by maxillofacial surgery with no immediate plans of surgical intervention at this time recommending outpatient follow-up. Apparently patient was evaluated and supposed to be having remaining teeth removed although due to social barriers and frequent hospitalizations and significant comorbidities, patient has been unable to follow-up. Also noted per Dr. Rodriguez, her insurance is not accepted at their facility. Patient should contact insurance regarding covered benefits. Patient will need cardiology and nephrology clearance prior to any surgical intervention Will discuss with consultations regarding possible discharge planning. Possibly in the next 24 hours The impression and plan of care has been dictated by Margie Urbina, Nurse Practitioner as directed. Dr. Dustin MD I have performed a history and physical examination and medical decision making of this patient, discussed the same with the dictator, and agree with the dictators assessment and plan as written, documented as a scribe. Based on total visit time, I have performed more than 50% of this visit. Objective - Vital Signs Vital signs: Vital Signs Temp 97.8 F 04/23/25 08:00 Pulse 66 04/23/25 08:00 Resp 18 04/23/25 08:00 BP 163/90 04/23/25 08:00 Pulse Ox 100 04/23/25 08:00 FiO2 Intake & Output 04/22/25 04/23/25 04/23/25 18:59 06:59 18:59 Intake Total 718 780 550 Balance 718 780 550 Weight 82.4 kg Intake: IV 10 Invasive Line 5 10 Oral 718 780 540 Other: Voiding Method Toilet Toilet Toilet # Voids 3 - Labs CBC & Chem 7: 04/23/25 07:04 04/23/25 07:04 Labs: Abnormal Lab Results - Last 24 Hours (Table) 04/22/25 04/22/25 04/23/25 Range/Units 20:50 23:12 06:00 RBC (4.10-5.20) 10*6/uL Hgb (12.0-15.0) g/dL Hct (37.2-46.3) % MCV (80.0-97.0) fL MCH (27.0-32.0) pg Eosinophils # (0.04-0.35) 10*3/uL Sodium (137-145) mmol/L Potassium (3.5-5.1) mmol/L Chloride (98-107) mmol/L BUN (7-17) mg/dL Creatinine (0.52-1.04) mg/dL Glucose (74-99) mg/dL POC Glucose (mg/dL) 176 H 335 H 154 H (70-110) mg/dL AST (14-36) U/L ALT (4-34) U/L 06/09/25 06/09/25 Range/Units 07:04 07:04 RBC 2.99 L (4.10-5.20) 10*6/uL Hgb 9.6 L (12.0-15.0) g/dL Hct 29.7 L (37.2-46.3) % MCV 99.3 H (80.0-97.0) fL MCH 32.1 H (27.0-32.0) pg Eosinophils # 0.96 H (0.04-0.35) 10*3/uL Sodium 130 L (137-145) mmol/L Potassium 7.8 H* (3.5-5.1) mmol/L Chloride 92 L (98-107) mmol/L BUN 63 H (7-17) mg/dL Creatinine 5.87 H (0.52-1.04) mg/dL Glucose 136 H (74-99) mg/dL POC Glucose (mg/dL) (70-110) mg/dL AST 45 H (14-36) U/L ALT 44 H (4-34) U/L
[2025-04-24] MEDS: AMPICILLIN-SULBACTAM 3 GM in SODIUM CHLORIDE 0.9% 100 ML IVPB SCH (05:48)
[2025-04-24 06:23] LABS: Glucose,Whole Blood 252 mg/dL (70-110)
[2025-04-24 07:11] LABS: Basophils # (A) 0.07 10*3/uL (0.00-0.10); Basophils % (A) 1.1 %; Eosinophils # (A) 0.83 10*3/uL (0.04-0.35); Eosinophils % (A) 13.2 %; HCT 29.2 % (37.2-46.3); HGB 9.4 g/dL (12.0-15.0); Lymphocytes # (A) 1.12 10*3/uL (0.90-5.00); Lymphocytes % (A) 17.8 %; MCHC 32.2 g/dL (32.0-37.0); MCV 99.3 fL (80.0-97.0); Mean Platelet Volume 10.5 fL (9.5-12.2); Monocytes # (A) 0.64 10*3/uL (0.20-1.00); Monocytes % (A) 10.2 %; Neutrophils % (A) 57.2 %; Platelet Count 201 10*3/uL (140-440); RBC 2.94 10*6/uL (4.10-5.20); RDW 15.9 % (11.5-14.5); WBC 6.29 10*3/uL (4.50-10.00)
[2025-04-24 08:41] LABS: ALT 44 U/L (4-34); AST 37 U/L (14-36); African American GFR (CKD) 13 (>60 ml/min/1.73 sqM); Albumin 4.4 g/dL (3.5-5.0); Alkaline Phosphatase 150 U/L (38-126); Anion Gap 14 mmol/L; Blood Urea Nitrogen 48 mg/dL (7-17); Calcium 9.3 mg/dL (8.4-10.2); Carbon Dioxide 24 mmol/L (22-30); Chloride 93 mmol/L (98-107); Glucose 201 mg/dL (74-99); Non-African American GFR(CKD) 12 (>60 ml/min/1.73 sqM); Sodium 131 mmol/L (137-145); Total Bilirubin 0.7 mg/dL (0.2-1.3)
[2025-04-24 08:50] LABS: Glucose,Whole Blood 56 mg/dL (70-110)
[2025-04-24 08:58] LABS: Potassium 7.4 mmol/L (3.5-5.1)
[2025-04-24 09:11] LABS: Glucose,Whole Blood 111 mg/dL (70-110)
[2025-04-24 11:12] LABS: Glucose,Whole Blood 92 mg/dL (70-110)
--- NOTE | 2025-04-24 12:44 | P.PN ---
Subjective Patient is seen for follow-up for end-stage renal disease. Seen on hemodialysis today Possible discharge today Objective - Vital Signs Vital signs: Vital Signs Temp 97.9 F 04/24/25 08:49 Pulse 75 04/24/25 08:50 Resp 16 04/24/25 08:50 BP 175/94 04/24/25 08:49 Pulse Ox 99 04/24/25 09:08 FiO2 Intake & Output 04/23/25 04/24/25 04/24/25 18:59 06:59 18:59 Intake Total 1060 20 10 Output Total 8500 Balance -7440 20 10 Weight 82.4 kg 71.5 kg Intake: IV 20 20 10 Invasive Line 5 20 20 10 Oral 540 Hemodialysis 500 Output: Hemodialysis 4500 Hemodialysis Net Amount 4000 Other: Voiding Method Toilet Toilet Toilet # Voids 0 2 1 - Exam Patient is awake, comfortable, no acute distress, mildly short of breath Examination of the heart S1 and S2 Examination of the lungs bilateral breath sounds are heard with basal crackles In duration noted in the left lower mouth/gum area Examination lower extremity shows trace edema [employer]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 - Labs CBC & Chem 7: 04/24/25 06:51 04/24/25 06:51 Labs: Abnormal Lab Results - Last 24 Hours (Table) 04/23/25 04/23/25 04/24/25 Range/Units 17:10 20:42 04:21 RBC (4.10-5.20) 10*6/uL Hgb (12.0-15.0) g/dL Hct (37.2-46.3) % MCV (80.0-97.0) fL Eosinophils # (0.04-0.35) 10*3/uL Sodium (137-145) mmol/L Potassium (3.5-5.1) mmol/L Chloride (98-107) mmol/L BUN (7-17) mg/dL Creatinine (0.52-1.04) mg/dL Glucose (74-99) mg/dL POC Glucose (mg/dL) 275 H 252 H 380 H (70-110) mg/dL AST (14-36) U/L ALT (4-34) U/L Alkaline Phosphatase (38-126) U/L 04/24/25 04/24/25 04/24/25 Range/Units 06:22 06:51 06:51 RBC 2.94 L (4.10-5.20) 10*6/uL Hgb 9.4 L (12.0-15.0) g/dL Hct 29.2 L (37.2-46.3) % MCV 99.3 H (80.0-97.0) fL Eosinophils # 0.83 H (0.04-0.35) 10*3/uL Sodium 131 L (137-145) mmol/L Potassium 7.4 H* (3.5-5.1) mmol/L Chloride 93 L (98-107) mmol/L BUN 48 H (7-17) mg/dL Creatinine 4.59 H (0.52-1.04) mg/dL Glucose 201 H (74-99) mg/dL POC Glucose (mg/dL) 252 H (70-110) mg/dL AST 37 H (14-36) U/L ALT 44 H (4-34) U/L Alkaline Phosphatase 150 H (38-126) U/L 04/24/25 04/24/25 Range/Units 08:49 09:09 RBC (4.10-5.20) 10*6/uL Hgb (12.0-15.0) g/dL Hct (37.2-46.3) % MCV (80.0-97.0) fL Eosinophils # (0.04-0.35) 10*3/uL Sodium (137-145) mmol/L Potassium (3.5-5.1) mmol/L Chloride (98-107) mmol/L BUN (7-17) mg/dL Creatinine (0.52-1.04) mg/dL Glucose (74-99) mg/dL POC Glucose (mg/dL) 56 L 111 H (70-110) mg/dL AST (14-36) U/L ALT (4-34) U/L Alkaline Phosphatase (38-126) U/L Assessment and Plan Assessment: 1. End-stage renal disease on hemodialysis on Wednesday schedule as outpatient 2. Volume overload, improved. Patient has had about 26 L of fluid taken off over the last 1 week 3. Hyperkalemia, improved with dialysis, potassium was elevated again this morning at 7.8. Suspect dietary noncompliance 4. Acute hypoxic respiratory failure secondary to volume overload, improved 5. Hypertension, uncontrolled due to volume overload 6. Dental abscess maintained on antibiotics Plan: Hemodialysis today Check potassium later on today if patient is not discharged Continue with antihypertensive medications Continue with PhosLo with meals Continue with antibiotics for tooth abscess was managed with 1 g
[2025-04-24] MEDS ORDERED: hydrOXYzine HCL 25 MG TAB PO PRN (13:15)
[2025-04-24 13:41] VITALS: RESP 20
[2025-04-24 15:34] VITALS: BP 189/94; PULSE 84; TEMP 97.4
[2025-04-24 16:26] LABS: Glucose,Whole Blood 324 mg/dL (70-110)
--- NOTE | 2025-04-24 16:50 | P.PN ---
Subjective Progress Note Date: 04/23/25 Principal diagnosis: Reason for follow-up is abscessed tooth Patient is a 35-year-old female with a past medical history significant for Diabetes Mellitus, GERD/Reflux, Hypertension, Renal Disease, Seizure Disorder, Thyroid Disorder presenting to the hospital with difficulty breathing patient also complained of left lower jaw broken tooth with increasing pain and drainage concerning for infected tooth confirmed on the CT. On today's evaluation that is 04/23/2025, patient has been afebrile, patient is breathing comfortably and is currently on 3 L goal oxygen, patient denies having any chest pain and cough, patient denies nausea vomiting or diarrhea and no abdominal pain still complaining of pain to the left lower jaw area Patient white count 7.24 creatinine is 5.87 Objective - Vital Signs Vital signs: Vital Signs Temp 98 F 04/23/25 12:00 Pulse 62 04/23/25 12:00 Resp 16 04/23/25 12:00 BP 122/78 04/23/25 12:00 Pulse Ox 99 04/23/25 12:00 FiO2 Intake & Output 04/22/25 04/23/25 04/23/25 18:59 06:59 18:59 Intake Total 718 780 550 Balance 718 780 550 Weight 82.4 kg 82.4 kg Intake: IV 10 Invasive Line 5 10 Oral 718 780 540 Other: Voiding Method Toilet Toilet Toilet # Voids 3 - Exam GENERAL DESCRIPTION: Middle-age female lying in bed in no distress HEENT: Left lower jaw with a broken tooth some surrounding swelling RESPIRATORY SYSTEM: Unlabored breathing , decreased breath sounds at bases HEART: S1 S2 regular rate and rhythm , ABDOMEN: Soft , no tenderness EXTREMITIES: No edema feet - Labs CBC & Chem 7: 04/24/25 06:51 04/24/25 06:51 Labs: Abnormal Lab Results - Last 24 Hours (Table) 04/22/25 04/22/25 04/23/25 Range/Units 20:50 23:12 06:00 RBC (4.10-5.20) 10*6/uL Hgb (12.0-15.0) g/dL Hct (37.2-46.3) % MCV (80.0-97.0) fL MCH (27.0-32.0) pg Eosinophils # (0.04-0.35) 10*3/uL Sodium (137-145) mmol/L Potassium (3.5-5.1) mmol/L Chloride (98-107) mmol/L BUN (7-17) mg/dL Creatinine (0.52-1.04) mg/dL Glucose (74-99) mg/dL POC Glucose (mg/dL) 176 H 335 H 154 H (70-110) mg/dL AST (14-36) U/L ALT (4-34) U/L 04/23/25 04/23/25 Range/Units 07:04 07:04 RBC 2.99 L (4.10-5.20) 10*6/uL Hgb 9.6 L (12.0-15.0) g/dL Hct 29.7 L (37.2-46.3) % MCV 99.3 H (80.0-97.0) fL MCH 32.1 H (27.0-32.0) pg Eosinophils # 0.96 H (0.04-0.35) 10*3/uL Sodium 130 L (137-145) mmol/L Potassium 7.8 H* (3.5-5.1) mmol/L Chloride 92 L (98-107) mmol/L BUN 63 H (7-17) mg/dL Creatinine 5.87 H (0.52-1.04) mg/dL Glucose 136 H (74-99) mg/dL POC Glucose (mg/dL) (70-110) mg/dL AST 45 H (14-36) U/L ALT 44 H (4-34) U/L Assessment and Plan (1) Abscessed tooth Current Visit: Yes Status: Acute Code(s): K04.7 - PERIAPICAL ABSCESS WITHOUT SINUS SNOMED Code(s): 965752390 Plan: 1patient with a left lower premolar broken tooth now complaining of pain and drainage in this patient who did have a CT we did shows abscessed tooth and some defect in the lower jaw will need to cover for the oral awa to be the likely pathogen 2-patient will benefit from dental surgery evaluation for removal of the infected tooth and deep culture, unfortunately dental surgery ON staff does not take her insurance 3patient is currently being treated with Unasyn dose adjusted to the kidney function Dictation was produced using [employer] software. please excuse any grammatical, word or spelling errors. Time with Patient: Less than 30
--- NOTE | 2025-04-24 16:50 | P.PN ---
Subjective Progress Note Date: 04/24/25 Principal diagnosis: Reason for follow-up is abscessed tooth Patient is a 35-year-old female with a past medical history significant for Diabetes Mellitus, GERD/Reflux, Hypertension, Renal Disease, Seizure Disorder, Thyroid Disorder presenting to the hospital with difficulty breathing patient also complained of left lower jaw broken tooth with increasing pain and drainage concerning for infected tooth confirmed on the CT. On today's evaluation that is 04/24/2025, Patient is afebrile this morning patient denies having any chest pain shortness of breath or cough, the patient has been complaining of mostly itching today some discomfort to the left lower jaw but no worsening. Patient did have white count 6.29, Objective - Vital Signs Vital signs: Vital Signs Temp 97.1 F L 04/24/25 13:38 Pulse 78 04/24/25 13:38 Resp 20 04/24/25 13:38 BP 180/95 04/24/25 13:38 Pulse Ox 99 04/24/25 12:42 FiO2 Intake & Output 04/23/25 04/24/25 04/24/25 18:59 06:59 18:59 Intake Total 1060 20 410 Output Total 8500 8400 Balance -7440 20 -7990 Weight 82.4 kg 71.5 kg Intake: IV 20 20 10 Invasive Line 5 20 20 10 Oral 540 Hemodialysis 500 400 Output: Hemodialysis 4500 4400 Hemodialysis Net Amount 4000 4000 Other: Voiding Method Toilet Toilet Toilet # Voids 0 2 1 - Exam GENERAL DESCRIPTION: Middle-age female lying in bed in no distress HEENT: Left lower jaw with a broken tooth some surrounding swelling RESPIRATORY SYSTEM: Unlabored breathing , decreased breath sounds at bases HEART: S1 S2 regular rate and rhythm , ABDOMEN: Soft , no tenderness EXTREMITIES: No edema feet - Labs CBC & Chem 7: 04/24/25 06:51 04/24/25 06:51 Labs: Abnormal Lab Results - Last 24 Hours (Table) 04/23/25 04/23/25 04/24/25 Range/Units 17:10 20:42 04:21 RBC (4.10-5.20) 10*6/uL Hgb (12.0-15.0) g/dL Hct (37.2-46.3) % MCV (80.0-97.0) fL Eosinophils # (0.04-0.35) 10*3/uL Sodium (137-145) mmol/L Potassium (3.5-5.1) mmol/L Chloride (98-107) mmol/L BUN (7-17) mg/dL Creatinine (0.52-1.04) mg/dL Glucose (74-99) mg/dL POC Glucose (mg/dL) 275 H 252 H 380 H (70-110) mg/dL AST (14-36) U/L ALT (4-34) U/L Alkaline Phosphatase (38-126) U/L 04/24/25 04/24/25 04/24/25 Range/Units 06:22 06:51 06:51 RBC 2.94 L (4.10-5.20) 10*6/uL Hgb 9.4 L (12.0-15.0) g/dL Hct 29.2 L (37.2-46.3) % MCV 99.3 H (80.0-97.0) fL Eosinophils # 0.83 H (0.04-0.35) 10*3/uL Sodium 131 L (137-145) mmol/L Potassium 7.4 H* (3.5-5.1) mmol/L Chloride 93 L (98-107) mmol/L BUN 48 H (7-17) mg/dL Creatinine 4.59 H (0.52-1.04) mg/dL Glucose 201 H (74-99) mg/dL POC Glucose (mg/dL) 252 H (70-110) mg/dL AST 37 H (14-36) U/L ALT 44 H (4-34) U/L Alkaline Phosphatase 150 H (38-126) U/L 04/24/25 04/24/25 Range/Units 08:49 09:09 RBC (4.10-5.20) 10*6/uL Hgb (12.0-15.0) g/dL Hct (37.2-46.3) % MCV (80.0-97.0) fL Eosinophils # (0.04-0.35) 10*3/uL Sodium (137-145) mmol/L Potassium (3.5-5.1) mmol/L Chloride (98-107) mmol/L BUN (7-17) mg/dL Creatinine (0.52-1.04) mg/dL Glucose (74-99) mg/dL POC Glucose (mg/dL) 56 L 111 H (70-110) mg/dL AST (14-36) U/L ALT (4-34) U/L Alkaline Phosphatase (38-126) U/L Assessment and Plan (1) Abscessed tooth Current Visit: Yes Status: Acute Code(s): K04.7 - PERIAPICAL ABSCESS WITHOUT SINUS SNOMED Code(s): 475332602 Plan: 1patient with a left lower premolar broken tooth now complaining of pain and drainage in this patient who did have a CT we did shows abscessed tooth and some defect in the lower jaw will need to cover for the oral awa to be the likely pathogen 2-patient will benefit from dental surgery evaluation for removal of the infected tooth and deep culture, unfortunately dental surgery ON staff does not take her insurance 3patient is currently being treated with Unasyn that can be transitioned to short course of oral Augmentin on discharge and the patient can follow-up with dental surgeon in the outpatient setting Dictation was produced using [employer] dictation software. please excuse any grammatical, word or spelling errors. Time with Patient: Less than 30
[2025-04-24] MEDS: SODIUM ZIRCONIUM CYCLOSILICATE 10 GM PACKET PO ONE (18:43)
--- NOTE | 2025-04-24 21:57 | P.PN ---
Subjective Progress Note Date: 04/23/25 Principal diagnosis: Reason for follow-up is abscessed tooth Patient is a 35-year-old female with a past medical history significant for Diabetes Mellitus, GERD/Reflux, Hypertension, Renal Disease, Seizure Disorder, Thyroid Disorder presenting to the hospital with difficulty breathing patient also complained of left lower jaw broken tooth with increasing pain and drainage concerning for infected tooth confirmed on the CT. On today's evaluation that is 04/21/2024, patient did have a temperature of 98 F this morning and denies having any chills, patient is on room air and breathing comfortably no chest pain or cough, the patient did not have any nausea vomiting abdominal pain or any diarrhea circumventing of pain to the left lower thigh area. White count 9.57, creatinine is 2.32 Objective - Vital Signs Vital signs: Vital Signs Temp 97.9 F 04/21/25 13:01 Pulse 80 04/21/25 13:01 Resp 18 04/21/25 13:01 BP 121/69 04/21/25 13:01 Pulse Ox 95 04/21/25 11:27 FiO2 Intake & Output 04/20/25 04/21/25 04/21/25 18:59 06:59 18:59 Intake Total 902 60 746 Output Total 8400 8388 Balance -5809 60 -7642 Weight 68.9 kg Intake: IV 40 10 246 0.9 10 236 Invasive Line 3 30 Invasive Line 4 10 Invasive Line 5 10 Intake, IV Titration 50 Amount Ampicillin-Sulbactam 1.5 50 gm In Sodium Chloride 0.9 % 50 ml @ 100 mls/hr IVPB Q6HR [facility] Rx#:[id number] Oral 462 Hemodialysis 400 500 Output: Urine 0 Stool 0 0 Urine/Stool Mix 0 Emesis 0 Oral Regurgitation 0 Hemodialysis 4400 4444 Hemodialysis Net Amount 4000 3944 Other 0 Other: Voiding Method Toilet Toilet Toilet # Voids 0 1 # Bowel Movements 0 - Exam GENERAL DESCRIPTION: Middle-age female lying in bed in no distress HEENT: Left lower jaw with a broken tooth some surrounding swelling RESPIRATORY SYSTEM: Unlabored breathing , decreased breath sounds at bases HEART: S1 S2 regular rate and rhythm , ABDOMEN: Soft , no tenderness EXTREMITIES: No edema feet - Labs CBC & Chem 7: 04/23/25 07:04 04/23/25 07:04 Labs: Abnormal Lab Results - Last 24 Hours (Table) 04/20/25 04/20/25 04/21/25 Range/Units 16:43 20:15 06:21 POC Glucose (mg/dL) 294 H 201 H 397 H (70-110) mg/dL 04/21/25 04/21/25 04/21/25 Range/Units 09:44 10:08 11:34 POC Glucose (mg/dL) 59 L 65 L 111 H (70-110) mg/dL Assessment and Plan (1) Abscessed tooth Current Visit: Yes Status: Acute Code(s): K04.7 - PERIAPICAL ABSCESS WITHOUT SINUS SNOMED Code(s): 550160910 Plan: 1patient with a left lower premolar broken tooth now complaining of pain and drainage in this patient who did have a CT we did shows abscessed tooth and some defect in the lower jaw will need to cover for the oral awa to be the likely pathogen 2-patient will benefit from dental surgery evaluation for removal of the infected tooth and deep culture 3patient to continue with Unasyn and monitor clinical course closely Dictation was produced using [employer] dictation software. please excuse any grammatical, word or spelling errors. Time with Patient: Less than 30
--- NOTE | 2025-04-28 14:54 | P.DS ---
Providers Date of admission: 04/16/25 09:59 Expected date of discharge: 04/24/25 Attending physician: Dahiana Chan Consults: 04/16/25 09:59 Consult Physician Urgent Consulting Provider: Charlene Lim Consult Reason/Comments: Acute pulmonary edema, hyperkalemia Do you want consulting provider notified?: Yes 04/19/25 14:06 Consult Physician Routine Consulting Provider: Polo Rodriguez Consult Reason/Comments: abscess tooth left lower jaw with purulent drainage Do you want consulting provider notified?: Yes Consult Physician Routine Consulting Provider: Marianna Rm Consult Reason/Comments: tooth abscess Do you want consulting provider notified?: Yes Primary care physician: Rush Marroquin MD Hospital Course: Final diagnosis - Acute on chronic hypoxic respiratory failure secondary to pulmonary edema. - Dental abscess; CT panorex revealed left premolar abscess of tooth #21 - Hyperkalemia secondary to end-stage renal disease, patient to continue hemodialysis - Mild nonspecific elevation of AST and ALT - Diarrhea likely viral gastroenteritis - Type 2 diabetes mellitus - Uncontrolled hypertension with accelerated hypertension on admission - Seizure disorder - Hypothyroidism - Gastroesophageal reflux disease - Chronic pain: Patient's chest pain is a part of chronic pain . Patient has recent cardiac catheterization which showed clean coronaries GI prophylaxis DVT prophylaxis Full code Discharge disposition Patient is being discharged in a stable condition with guarded prognosis to home. Patient will follow-up with Dr. Nieto in the outpatient setting upon discharge. Patient is to continue with hemodialysis as scheduled with close outpatient follow-up with nephrology and cardiology. Patient is to continue on oral Augmentin and strongly recommend contacting insurance to verify which dental surgeon accepts her insurance that can remove her teeth. Total time taken is greater than 35 minutes. Hospital course This is a 35-year-old female who was recently admitted with significant shortness of breath with volume overload being closely monitored with nephrology following. Patient also noted to have a left lower tooth dental caries with fractures and abscess noted to have a left premolar abscess of #21 tooth and evaluated by dental surgeon Dr. Rodriguez. Patient has followed up outpatient multiple times although fails to follow-up and now her insurance is not accepted by the office as patient has been told multiple times to have her teeth removed. Patient will continue with oral Augmentin on discharge and again discussed with the patient multiple times regarding contacting her insurance to verify coverage in which dental surgeon accepts her insurance. Patient to continue with hemodialysis and has been cleared by consultations. Currently no reports of chest pain, shortness of breath, or palpitations. Patient is afebrile. No reports of nausea or vomiting and patient is tolerating diet. Patient will be discharged home. High risk for readmissions and has had multiple ER visits and hospitalizations due to significant comorbidities and extreme noncompliance to outpatient follow-up and medications. Physical exam: Gen: This is a 35-year-old female who is awake, alert and oriented x 3, well- developed, elderly appearing, chronically ill-appearing HEENT: Head is atraumatic, normocephalic. Pupils equal, round. Sclerae is anicteric. NECK: Supple. No JVD. No lymphadenopathy. No thyromegaly. LUNGS: Diminished breath sounds bilaterally otherwise clear to auscultation. No wheezes or rhonchi. No intercostal retractions. HEART: S1, S2 are muffled ABDOMEN: Soft. Obese bowel sounds are present. No masses. No tenderness. EXTREMITIES: No pedal edema. No calf tenderness. NEUROLOGICAL: Patient is awake, alert and oriented x3. Cranial nerves 2 through 12 are grossly intact. Please refer to medication reconciliation sheet for a list of medications. The impression and plan of care has been dictated by Margie Urbina, Nurse Practitioner as directed. Dr. Dustin MD I have performed a history and examination and MDM of this patient, discussed the same with the dictator, and agree with the dictator's assessment and plan as written ,documented as a scribe. Based on total visit time, I have performed more than 50% of the visit. Patient Condition at Discharge: Fair Plan - Discharge Summary New Discharge Prescriptions: New hydrOXYzine HCL [Atarax] 25 mg PO TID PRN #10 tab PRN Reason: Itching Continue Lidocaine 4% Patch 1 patch TOPICAL DAILY@0800 Ipratropium-Albuterol Nebulize [Duoneb 0.5 mg-3 mg/3 ml Soln] 3 ml INHALATION RT-TID PRN each PRN Reason: Shortness Of Breath Or Wheezing Biotene Dry Mouth/Throat 10 ml PO BID PRN PRN Reason: DRY MOUTH/THROAT Acetaminophen [Tylenol] 650 mg PO Q4H PRN PRN Reason: Pain Or Fever > 100.5 Loratadine [Claritin] 5 mg PO DAILY tab Sertraline [Zoloft] 200 mg PO DAILY@0800 Atorvastatin [Lipitor] 40 mg PO HS #0 Folic Acid/Vit B Complex and C [Davina-Mayte Tablet] 0.8 mg PO DAILY Isosorbide Mononitrate ER [Imdur] 120 mg PO DAILY #60 tab NIFEdipine XL [Procardia XL] 60 mg PO BID 30 Days #60 tab Gabapentin [Neurontin] 100 mg PO BID 30 Days #60 cap Linagliptin [Tradjenta] 5 mg PO DAILY #30 tab cloNIDine HCL [Catapres] 0.3 mg PO TID Insulin Lispro [humaLOG Kwikpen] See Protocol SQ AC-TID carvediloL [Coreg] 50 mg PO BID #120 tablet Lidocaine 5% Cream 1 applic TOPICAL MOTUWETHSA ALPRAZolam [Xanax] 0.25 mg PO BID PRN PRN Reason: Anxiety Docusate [Colace] 100 mg PO DAILY@0800 polyethylene glycoL 3350 [Miralax] 17 gm PO AC-LUNCH #527 gm Melatonin 1 mg PO HS tab Aspirin 81 mg PO DAILY@0800 #30 tab Famotidine [Pepcid] 20 mg PO BID #60 tab Levothyroxine Sodium [Synthroid] 175 mcg PO DAILY@0600 traZODone HCL [Desyrel] 50 mg PO HS #20 tab Ipratropium-Albuterol Nebulize [Duoneb 0.5 mg-3 mg/3 ml Soln] 3 ml INHALATION RT-TID #100 each Calcium Acetate [PhosLo] 1,334 mg PO TID-W/MEALS 30 Days #360 tab Divalproex Sodium [Depakote] 500 mg PO BID@0800,1700 Methoxy Peg-Epoetin Beta [Mircera] 100 mcg SQ Q14D Insulin Glargine (Lantus) [Lantus Vial] 11 unit SQ BID #0 oxyCODONE HCL/ACETAMINOPHEN [Percocet 10-325 mg] 1 tab PO DAILY PRN PRN Reason: Pain No Action INSULIN LISPRO (HumaLOG) [HumaLOG] 5 unit SQ AC-TID each Sodium Zirconium Cyclosilicate [Lokelma] 10 gm PO DAILY #30 Discharge Medication List Docusate [Colace] 100 mg PO DAILY@0800 02/05/24 [History] Lidocaine 4% Patch 1 patch TOPICAL DAILY@0800 02/05/24 [History] Ipratropium-Albuterol Nebulize [Duoneb 0.5 mg-3 mg/3 ml Soln] 3 ml INHALATION RT-TID PRN each 02/14/24 [Rx] polyethylene glycoL 3350 [Miralax] 17 gm PO AC-LUNCH #527 gm 02/14/24 [Rx] Acetaminophen [Tylenol] 650 mg PO Q4H PRN 02/18/24 [History] Biotene Dry Mouth/Throat 10 ml PO BID PRN 02/18/24 [History] Melatonin 1 mg PO HS tab 02/25/24 [Rx] Loratadine [Claritin] 5 mg PO DAILY tab 03/30/24 [Rx] Aspirin 81 mg PO DAILY@0800 #30 tab 05/18/24 [Rx] Famotidine [Pepcid] 20 mg PO BID #60 tab 07/11/24 [Rx] Levothyroxine Sodium [Synthroid] 175 mcg PO DAILY@0600 08/14/24 [History] Sertraline [Zoloft] 200 mg PO DAILY@0800 08/14/24 [History] Atorvastatin [Lipitor] 40 mg PO HS #0 11/23/24 [Rx] Folic Acid/Vit B Complex and C [Davina-Mayte Tablet] 0.8 mg PO DAILY 12/20/24 [History] traZODone HCL [Desyrel] 50 mg PO HS #20 tab 01/01/25 [Rx] Isosorbide Mononitrate ER [Imdur] 120 mg PO DAILY #60 tab 01/02/25 [Rx] NIFEdipine XL [Procardia XL] 60 mg PO BID 30 Days #60 tab 01/02/25 [Rx] Gabapentin [Neurontin] 100 mg PO BID 30 Days #60 cap 01/03/25 [Rx] Linagliptin [Tradjenta] 5 mg PO DAILY #30 tab 01/03/25 [Rx] Insulin Lispro [humaLOG Kwikpen] See Protocol SQ AC-TID 01/22/25 [History] cloNIDine HCL [Catapres] 0.3 mg PO TID 01/22/25 [History] carvediloL [Coreg] 50 mg PO BID #120 tablet 02/15/25 [Rx] Calcium Acetate [PhosLo] 1,334 mg PO TID-W/MEALS 30 Days #360 tab 02/19/25 [Rx] Ipratropium-Albuterol Nebulize [Duoneb 0.5 mg-3 mg/3 ml Soln] 3 ml INHALATION RT-TID #100 each 02/19/25 [Rx] ALPRAZolam [Xanax] 0.25 mg PO BID PRN 02/26/25 [History] Divalproex Sodium [Depakote] 500 mg PO BID@0800,1700 02/26/25 [History] Lidocaine 5% Cream 1 applic TOPICAL MOTUWETHSA 02/26/25 [History] Methoxy Peg-Epoetin Beta [Mircera] 100 mcg SQ Q14D 02/26/25 [History] Insulin Glargine (Lantus) [Lantus Vial] 11 unit SQ BID #0 03/18/25 [Rx] oxyCODONE HCL/ACETAMINOPHEN [Percocet 10-325 mg] 1 tab PO DAILY PRN 04/16/25 [History] hydrOXYzine HCL [Atarax] 25 mg PO TID PRN #10 tab 04/24/25 [Rx] INSULIN LISPRO (HumaLOG) [HumaLOG] 5 unit SQ AC-TID each 04/27/25 [Rx] Sodium Zirconium Cyclosilicate [Lokelma] 10 gm PO DAILY #30 04/27/25 [Rx] Follow up Appointment(s)/Referral(s): Rush Marroquin MD [Primary Care Provider] - 1-2 days (Office closed at time of discharge, please ensure office is aware this is an appointment following a hospital stay.) Charlene Lim MD [STAFF PHYSICIAN] - 1 Week Ambulatory/Diagnostic Orders: Basic Metabolic Panel [LAB.AMB] Time Frame: 3 Days, Location: None Selected Patient Instructions/Handouts: Hyperkalemia (DC) Activity/Diet/Wound Care/Special Instructions: Continue same hemodialysis outpatient at your usual chair time Continue claritin and OTC flonase for sinus congestion Complete 5 days of oral augmentin twice daily Follow up with Dr Marroquin in the office regarding mammogram Continue taking antibiotics until finished Contact your insurance regarding coverage and request referrals for accepting dentists for dental care and surgery for teeth removal Follow diabetic renal diet Discharge Disposition: HOME WITH HOME HEALTH SERVICES
== END 2025-04-24 19:05 | disposition home health service (06) | DRG 189 ==
LOC: EC 07:24 → 3SCARD 09:59
PROVIDERS: ADMIT Hospitalist; ATTEND Hospitalist
PROC: 5A1D70Z Performance of Urinary Filtration, Intermittent, Less than 6 Hours Per Day (ICD-10-PCS; principal; 2025-04-16)
PROC: 05H933Z Insertion of Infusion Device into Right Brachial Vein, Percutaneous Approach (ICD-10-PCS; 2025-04-20 14:00)
DX: J81.0 Acute pulmonary edema (principal); J96.21 Acute and chronic respiratory failure with hypoxia; N18.6 End stage renal disease; I13.11 Hypertensive heart and chronic kidney disease without heart failure, with stage 5 chronic kidney disease, or end stage renal disease; I69.312 Visuospatial deficit and spatial neglect following cerebral infarction; Z99.2 Dependence on renal dialysis; E11.22 Type 2 diabetes mellitus with diabetic chronic kidney disease; G40.909 Epilepsy, unspecified, not intractable, without status epilepticus; E03.9 Hypothyroidism, unspecified; F32.A Depression, unspecified; E11.319 Type 2 diabetes mellitus with unspecified diabetic retinopathy without macular edema; E11.43 Type 2 diabetes mellitus with diabetic autonomic (poly)neuropathy; E11.40 Type 2 diabetes mellitus with diabetic neuropathy, unspecified; Z79.4 Long term (current) use of insulin; E87.5 Hyperkalemia; F17.210 Nicotine dependence, cigarettes, uncomplicated; K03.81 Cracked tooth; K04.7 Periapical abscess without sinus; K31.84 Gastroparesis; E87.70 Fluid overload, unspecified; A08.4 Viral intestinal infection, unspecified; H54.61 Unqualified visual loss, right eye, normal vision left eye; F41.9 Anxiety disorder, unspecified; G89.29 Other chronic pain; K21.9 Gastro-esophageal reflux disease without esophagitis; K02.9 Dental caries, unspecified; Z79.82 Long term (current) use of aspirin; Z79.890 Hormone replacement therapy; Z79.84 Long term (current) use of oral hypoglycemic drugs; Z79.899 Other long term (current) drug therapy; Z88.8 Allergy status to other drugs, medicaments and biological substances; Z88.5 Allergy status to narcotic agent; Z88.6 Allergy status to analgesic agent
CPT/HCPCS: 36410; 36415; 70486; 71046; 76937; 80048; 80053; 80164; 83735; 83880; 84100; 84132; 85025; 85027; 87636; 87651; 90935; 93005; 94640; 94760; 96365; 96375; 96376; 99291

== ENCOUNTER 2025-04-26 06:26 | Observation (INO) | payer MEDICARE ==
[2025-04-26 06:39] LABS: Glucose,Whole Blood 127 mg/dL (70-110)
[2025-04-26 06:53] LABS: Basophils # (A) 0.12 10*3/uL (0.00-0.10); Basophils % (A) 1.6 %; Eosinophils # (A) 0.66 10*3/uL (0.04-0.35); Eosinophils % (A) 8.6 %; HCT 30.1 % (37.2-46.3); HGB 10.3 g/dL (12.0-15.0); Lymphocytes # (A) 1.01 10*3/uL (0.90-5.00); Lymphocytes % (A) 13.2 %; MCH 33.1 pg (27.0-32.0); MCHC 34.2 g/dL (32.0-37.0); MCV 96.8 fL (80.0-97.0); Mean Platelet Volume 10.9 fL (9.5-12.2); Monocytes # (A) 0.83 10*3/uL (0.20-1.00); Monocytes % (A) 10.8 %; Neutrophils # (A) 5.02 10*3/uL (1.80-7.70); Neutrophils % (A) 65.4 %; Platelet Count 215 10*3/uL (140-440); RBC 3.11 10*6/uL (4.10-5.20); WBC 7.67 10*3/uL (4.50-10.00)
[2025-04-26] MEDS: MECLIZINE 12.5 MG TAB PO STA (06:57)
--- NOTE | 2025-04-26 06:57 | ED ---
Recheck HPI - General Chief Complaint: Recheck/Abnormal Lab/Rx Stated Complaint: Diabetic issues Time Seen by Provider: 04/26/25 06:28 Source: patient, EMS, RN notes reviewed Mode of arrival: EMS Limitations: no limitations - History of Present Illness Initial Comments: This is a 35-year-old female who presents to the emergency department for hypoglycemia. Patient was discharged from this hospital 2 days ago after being admitted for pulmonary edema and also requiring treatment for a dental abscess. States that the breathing and dental abscess are both starting to do better. She was waiting for dialysis this morning and started feeling very unwell. She was found to be hypoglycemic with a sugar reportedly in the 20s. EMS was called and gave her half an amp of dextrose along with zofran. Her sugar improved, however she states that she continues to feel nauseous. She is also dizzy with a headache and is experiencing chest heaviness. Reports a history of CHF, denies any history of CAD or history of MIs. Describes the dizziness as a room spinning sensation. States that she has had both the feelings of dizziness and chest heaviness in the past and states that they have been more noticeable since she started dialysis. Additionally, states that she has had hypoglycemic episodes before but is unsure what causes them. She uses long-acting insulin twice daily and rapid acting with meals. She did not eat this morning or take any insulin yet this morning. MD Complaint: abnormal lab - Related Data Home Medications Medication Instructions Recorded Confirmed Docusate [Colace] 100 mg PO DAILY@79902/05/24 04/26/25 Lidocaine 4% Patch 1 patch TOPICAL DAILY@79902/05/24 04/26/25 Acetaminophen [Tylenol] 650 mg PO Q4H PRN 02/18/24 04/26/25 Biotene Dry Mouth/Throat 10 ml PO BID PRN 02/18/24 04/26/25 Levothyroxine Sodium [Synthroid] 175 mcg PO DAILY@59908/14/24 04/26/25 Sertraline [Zoloft] 200 mg PO DAILY@79908/14/24 04/26/25 Folic Acid/Vit B Complex and C 0.8 mg PO DAILY 12/20/24 04/26/25 [Davina-Mayte Tablet] Insulin Lispro [humaLOG Kwikpen] 8 unit SQ AC-TID 01/22/25 04/26/25 Insulin Lispro [humaLOG Kwikpen] See Protocol SQ AC-TID 01/22/25 04/26/25 cloNIDine HCL [Catapres] 0.3 mg PO TID 01/22/25 04/26/25 ALPRAZolam [Xanax] 0.25 mg PO BID PRN 02/26/25 04/26/25 Divalproex Sodium [Depakote] 500 mg PO BID@0800,1700 02/26/25 04/26/25 Lidocaine 5% Cream 1 applic TOPICAL MOTUWETHSA 02/26/25 04/26/25 Methoxy Peg-Epoetin Beta [Mircera] 100 mcg SQ Q14D 02/26/25 04/26/25 oxyCODONE HCL/ACETAMINOPHEN 1 tab PO DAILY PRN 04/16/25 04/26/25 [Percocet 10-325 mg] Previous Rx's Medication Instructions Recorded Ipratropium-Albuterol Nebulize 3 ml INHALATION RT-TID PRN each 02/14/24 [Duoneb 0.5 mg-3 mg/3 ml Soln] polyethylene glycoL 3350 [Miralax] 17 gm PO AC-LUNCH #527 gm 02/14/24 Melatonin 1 mg PO HS tab 02/25/24 Loratadine [Claritin] 5 mg PO DAILY tab 03/30/24 Aspirin 81 mg PO DAILY@0800 #30 tab 05/18/24 Famotidine [Pepcid] 20 mg PO BID #60 tab 07/11/24 Atorvastatin [Lipitor] 40 mg PO HS #0 11/23/24 traZODone HCL [Desyrel] 50 mg PO HS #20 tab 01/01/25 Isosorbide Mononitrate ER [Imdur] 120 mg PO DAILY #60 tab 01/02/25 NIFEdipine XL [Procardia XL] 60 mg PO BID 30 Days #60 tab 01/02/25 Gabapentin [Neurontin] 100 mg PO BID 30 Days #60 cap 01/03/25 Linagliptin [Tradjenta] 5 mg PO DAILY #30 tab 01/03/25 carvediloL [Coreg] 50 mg PO BID #120 tablet 02/15/25 Calcium Acetate [PhosLo] 1,334 mg PO TID-W/MEALS 30 Days 02/19/25 #360 tab Ipratropium-Albuterol Nebulize 3 ml INHALATION RT-TID #100 each 02/19/25 [Duoneb 0.5 mg-3 mg/3 ml Soln] Insulin Glargine (Lantus) [Lantus 11 unit SQ BID #0 03/18/25 Vial] hydrOXYzine HCL [Atarax] 25 mg PO TID PRN #10 tab 04/24/25 Allergies Allergy/AdvReac Type Severity Reaction Status Date / Time hydromorphone HCl Allergy Anaphylaxis Verified 04/26/25 13:38 [From Dilaudid] propoxyphene Allergy Rash/Hives Verified 04/26/25 13:38 [From Darvocet-N] tramadol Allergy Anaphylaxis Verified 04/26/25 13:38 ibuprofen [From Motrin] AdvReac unable to Verified 04/26/25 13:38 take due to kidney disease venom-honey bee AdvReac passes out Verified 04/26/25 13:38 [bee venom (honey bee)] Review of Systems ROS Statement: Those systems with pertinent positive or pertinent negative responses have been documented in the HPI. ROS Other: All systems not noted in ROS Statement are negative. 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 Past Anesthesia/Blood Transfusion Reactions: Previous Problems w/ Anesthesia Additional Past Anesthesia/Blood Transfusion Reaction / Comment(s): confusion Past Psychological History: Anxiety, Depression Smoking Status: Current every day smoker Past Alcohol Use History: None Reported Past Drug Use History: Marijuana - Past Family History Father History Unknown: Yes Family Medical History: Unable to Obtain Mother History Unknown: Yes Family Medical History: No Reported History Grandfather History Unknown: Yes Family Medical History: Coronary Artery Disease (CAD) Additional Family Medical History / Comment(s): Diabetes mellitus type 2 General Exam Limitations: no limitations General appearance: alert, in no apparent distress Head exam: Present: atraumatic, normocephalic, normal inspection Respiratory exam: Present: normal lung sounds bilaterally. Absent: respiratory distress, wheezes, rales, rhonchi, stridor Cardiovascular Exam: Present: regular rate, normal rhythm GI/Abdominal exam: Present: soft. Absent: distended, tenderness Neurological exam: Present: alert, oriented X3, CN II-XII intact Psychiatric exam: Present: normal affect, normal mood Course Vital Signs 04/26/25 04/26/25 04/26/25 06:31 08:00 09:48 Temperature 97.2 F L Pulse Rate 60 60 53 L Respiratory 20 18 20 Rate Blood Pressure 178/99 138/87 154/86 O2 Sat by Pulse 100 98 97 Oximetry 04/26/25 04/26/25 04/26/25 10:21 12:00 13:00 Temperature Pulse Rate 54 L 56 L 64 Respiratory 16 18 20 Rate Blood Pressure 150/87 146/84 134/84 O2 Sat by Pulse 96 96 96 Oximetry Medical Decision Making - Medical Decision Making This is a 35 year old female who presents to the emergency department for hypoglycemia, dizziness, and chest heaviness. Was pt. sent in by a medical professional or institution? @ -No Did you speak to anyone other than the patient for history? @ -No Did you review nursing and triage notes? @ -Yes, and I agree, it is accurate with regards to the patient's symptoms. Were old charts reviewed? @ -No Differential Diagnosis? @ -Differential Dizziness: Benign paroxysmal positional Vertigo, Meniere's disease, otitis media, acoustic neuroma, vertebrobasilar insufficiency, cerebellar stroke, encephalitis, hypovolemic, arrhythmia, coronary artery syndrome, anemia, this is not meant to be an all-inclusive list EKG interpreted by me (3pts min.)? @ -EKG interpreted by me demonstrating the following: Sinus bradycardia. Ventricular rate 58 bpm, ND interval 167 ms, QRS duration 90 ms, QTc 481 ms. X-rays interpreted by me (1pt min.)? @ -Chest x-ray obtained. My interpretation identifies pulmonary vascular congestion. CT interpreted by me (1pt min.)? @ -CT scan of the brain obtained. My interpretation identifies no acute intracranial hemorrhage. U/S interpreted by me (1pt. min.)? @ -Not obtained What testing was considered but not performed? (CT, X-rays, U/S, labs)? Why? @ -None What meds were considered but not given? Why? @ -None Did you discuss the management of the patient with other professionals? @ -No Did you reconcile home meds? @ -Yes Was smoking cessation discussed for >3mins.? @ -No Was critical care preformed (if so, how long)? @ -No Were there social determinants of health that impacted care today? How? (Homelessness, low income, unemployed, alcoholism, drug addiction, transp ortation, low edu. Level, literacy, decrease access to med. care, residential, rehab)? @ -No Was there de-escalation of care discussed even if they declined? (Discuss DNR or withdrawal of care, Hospice)? @ -No What co-morbidities impacted this encounter? (DM, HTN, Smoking, COPD, CAD, Cancer, CVA, Hep., AIDS, mental health diagnosis, sleep apnea, morbid obesity)? @ -DM, ESRD on dialysis, CHF, HTN Was patient admitted / discharged? @ -Admitted. Lab work demonstrates hyperkalemia with potassium of 6.4. Renal failure is consistent with patient's hx of end-stage renal disease on dialysis and stable when compared with prior values. LFTs are also similar when [place] [address]. This is improved when compared with prior when it was [id number]. Given that she was mentioning chest heaviness, we did obtain 2 troponins 3 hours apart and they both remained negative. Chest x-ray consistent with mild CHF, which patient has a known history of. Patient does appear to struggle with hyperkalemia fairly frequently, even when receiving dialysis. 10 g of Lokelma was administered. I had intended on the patient being discharged home with plan to follow-up with dialysis outpatient later toda y. However, she continued to complain of headaches and nausea and despite multiple pain and nausea medications, she continued to be symptomatic and was not comfortable with discharge home. CT scan of the brain was then obtained and no acute process was identified. Patient subsequently admitted to medicine for intractable headaches with intractable nausea and hyperkalemia. Consult placed for neurology regarding the headaches. Nephrology consulted regarding dialysis management. Case discussed with ED attending Dr. Driver. Undiagnosed new problem with uncertain prognosis? @ -None Drug Therapy requiring intensive monitoring for toxicity (Heparin, Nitro, Insulin, Cardizem)? @ -None Were any procedures done? @ -None Diagnosis/symptom? @ -Intractable headache, intractable nausea, hyperkalemia Acute, or Chronic, or Acute on Chronic? @ -Acute Uncomplicated (without systemic symptoms) or Complicated (systemic symptoms)? @ -Complicated Side effects of treatment? @ -None Exacerbation, Progression, or Severe Exacerbation] @ -Not applicable Poses a threat to life or bodily function? @ -Yes, patient unable to function with her current pain levels - Lab Data Result diagrams: 04/26/25 06:39 04/26/25 06:39 Lab Results 04/26/25 04/26/25 04/26/25 Range/Units 06:38 06:38 06:39 WBC 7.67 (4.50-10.00) 10*3/uL RBC 3.11 L (4.10-5.20) 10*6/uL Hgb 10.3 L (12.0-15.0) g/dL Hct 30.1 L (37.2-46.3) % MCV 96.8 (80.0-97.0) fL MCH 33.1 H (27.0-32.0) pg MCHC 34.2 (32.0-37.0) g/dL Plt Count 215 (140-440) 10*3/uL MPV 10.9 (9.5-12.2) fL Immature Gran % (Auto) 0.4 % Neutrophils % 65.4 % Lymphocytes % 13.2 % Monocytes % 10.8 % Eosinophils % 8.6 % Basophils % 1.6 % Immature Gran # 0.03 (0.00-0.04) 10*3/uL Neutrophils # 5.02 (1.80-7.70) 10*3/uL Lymphocytes # 1.01 (0.90-5.00) 10*3/uL Monocytes # 0.83 (0.20-1.00) 10*3/uL Eosinophils # 0.66 H (0.04-0.35) 10*3/uL Basophils # 0.12 H (0.00-0.10) 10*3/uL PT (10.0-12.5) sec INR (<1.2) APTT (22.0-30.0) sec Sodium (137-145) mmol/L Potassium (3.5-5.1) mmol/L Chloride (98-107) mmol/L Carbon Dioxide (22-30) mmol/L Anion Gap mmol/L BUN (7-17) mg/dL Creatinine (0.52-1.04) mg/dL Est GFR (CKD-EPI)AfAm (>60 ml/min/1.73 sqM) Est GFR (CKD-EPI)NonAf (>60 ml/min/1.73 sqM) Glucose (74-99) mg/dL POC Glucose (mg/dL) 127 H (70-110) mg/dL POC Glu Road Test Examiner ID Garza Shawn Calcium (8.4-10.2) mg/dL Phosphorus (2.5-4.5) mg/dL Magnesium (1.6-2.3) mg/dL Total Bilirubin (0.2-1.3) mg/dL AST (14-36) U/L ALT (4-34) U/L Alkaline Phosphatase (38-126) U/L Troponin I (0.000-0.034) ng/mL NT-Pro-B Natriuret Pep pg/mL Total Protein (6.3-8.2) g/dL Albumin (3.5-5.0) g/dL HCG, Qual Not Detected 04/26/25 04/26/25 04/26/25 Range/Units 06:39 06:39 06:39 WBC (4.50-10.00) 10*3/uL RBC (4.10-5.20) 10*6/uL Hgb (12.0-15.0) g/dL Hct (37.2-46.3) % MCV (80.0-97.0) fL MCH (27.0-32.0) pg MCHC (32.0-37.0) g/dL Plt Count (140-440) 10*3/uL MPV (9.5-12.2) fL Immature Gran % (Auto) % Neutrophils % % Lymphocytes % % Monocytes % % Eosinophils % % Basophils % % Immature Gran # (0.00-0.04) 10*3/uL Neutrophils # (1.80-7.70) 10*3/uL Lymphocytes # (0.90-5.00) 10*3/uL Monocytes # (0.20-1.00) 10*3/uL Eosinophils # (0.04-0.35) 10*3/uL Basophils # (0.00-0.10) 10*3/uL PT 13.5 H (10.0-12.5) sec INR 1.3 H (<1.2) APTT 25.4 (22.0-30.0) sec Sodium 132 L (137-145) mmol/L Potassium 6.4 H* (3.5-5.1) mmol/L Chloride 96 L (98-107) mmol/L Carbon Dioxide 22 (22-30) mmol/L Anion Gap 14 mmol/L BUN 57 H (7-17) mg/dL Creatinine 5.98 H (0.52-1.04) mg/dL Est GFR (CKD-EPI)AfAm 10 (>60 ml/min/1.73 sqM) Est GFR (CKD-EPI)NonAf 8 (>60 ml/min/1.73 sqM) Glucose 120 H (74-99) mg/dL POC Glucose (mg/dL) (70-110) mg/dL POC Glu Road Test Examiner ID Calcium 9.3 (8.4-10.2) mg/dL Phosphorus 7.4 H (2.5-4.5) mg/dL Magnesium 2.1 (1.6-2.3) mg/dL Total Bilirubin 0.7 (0.2-1.3) mg/dL AST 210 H (14-36) U/L ALT 198 H (4-34) U/L Alkaline Phosphatase 164 H (38-126) U/L Troponin I 0.020 (0.000-0.034) ng/mL NT-Pro-B Natriuret Pep 61744 pg/mL Total Protein 6.9 (6.3-8.2) g/dL Albumin 4.4 (3.5-5.0) g/dL HCG, Qual 04/26/25 04/26/25 Range/Units 08:16 09:48 WBC (4.50-10.00) 10*3/uL RBC (4.10-5.20) 10*6/uL Hgb (12.0-15.0) g/dL Hct (37.2-46.3) % MCV (80.0-97.0) fL MCH (27.0-32.0) pg MCHC (32.0-37.0) g/dL Plt Count (140-440) 10*3/uL MPV (9.5-12.2) fL Immature Gran % (Auto) % Neutrophils % % Lymphocytes % % Monocytes % % Eosinophils % % Basophils % % Immature Gran # (0.00-0.04) 10*3/uL Neutrophils # (1.80-7.70) 10*3/uL Lymphocytes # (0.90-5.00) 10*3/uL Monocytes # (0.20-1.00) 10*3/uL Eosinophils # (0.04-0.35) 10*3/uL Basophils # (0.00-0.10) 10*3/uL PT (10.0-12.5) sec INR (<1.2) APTT (22.0-30.0) sec Sodium (137-145) mmol/L Potassium (3.5-5.1) mmol/L Chloride (98-107) mmol/L Carbon Dioxide (22-30) mmol/L Anion Gap mmol/L BUN (7-17) mg/dL Creatinine (0.52-1.04) mg/dL Est GFR (CKD-EPI)AfAm (>60 ml/min/1.73 sqM) Est GFR (CKD-EPI)NonAf (>60 ml/min/1.73 sqM) Glucose (74-99) mg/dL POC Glucose (mg/dL) 149 H (70-110) mg/dL POC Glu Road Test Examiner ID Tk Salas Calcium (8.4-10.2) mg/dL Phosphorus (2.5-4.5) mg/dL Magnesium (1.6-2.3) mg/dL Total Bilirubin (0.2-1.3) mg/dL AST (14-36) U/L ALT (4-34) U/L Alkaline Phosphatase (38-126) U/L Troponin I 0.016 (0.000-0.034) ng/mL NT-Pro-B Natriuret Pep pg/mL Total Protein (6.3-8.2) g/dL Albumin (3.5-5.0) g/dL HCG, Qual - Radiology Data Radiology results: report reviewed, image reviewed Disposition Clinical Impression: Hyperkalemia, Intractable headache, Intractable nausea Disposition: ADMITTED IP TO THIS HOSP
[2025-04-26] MEDS: METOCLOPRAMIDE 5 MG/ML 2 ML VIAL IVP STA (06:58)
[2025-04-26] MEDS: MORPHINE SULFATE 4 MG/ML SYRINGE IVP STA ×2 (07:00→09:48)
[2025-04-26 07:04] LABS: ALT 198 U/L (4-34); AST 210 U/L (14-36); African American GFR (CKD) 10 (>60 ml/min/1.73 sqM); Albumin 4.4 g/dL (3.5-5.0); Alkaline Phosphatase 164 U/L (38-126); Anion Gap 14 mmol/L; Blood Urea Nitrogen 57 mg/dL (7-17); Calcium 9.3 mg/dL (8.4-10.2); Carbon Dioxide 22 mmol/L (22-30); Chloride 96 mmol/L (98-107); Glucose 120 mg/dL (74-99); INR 1.3 (<1.2); Magnesium 2.1 mg/dL (1.6-2.3); Non-African American GFR(CKD) 8 (>60 ml/min/1.73 sqM); Partial Thromboplastin Time 25.4 sec (22.0-30.0); Phosphorus 7.4 mg/dL (2.5-4.5); Prothrombin Time 13.5 sec (10.0-12.5); Sodium 132 mmol/L (137-145); Total Bilirubin 0.7 mg/dL (0.2-1.3); Total Protein 6.9 g/dL (6.3-8.2)
[2025-04-26 07:06] LABS: Potassium 6.4 mmol/L (3.5-5.1)
--- NOTE | 2025-04-26 07:43 | XR ---
EXAMINATION TYPE: XR chest 2V DATE OF EXAM: 04/26/2025 7:33 AM COMPARISON: 04/16/2025 CLINICAL INDICATION: Female, 35 years old with history of Chest pain, shortness of breath and hypogly cemia TECHNIQUE: XR chest 2V view(s) obtained. FINDINGS: The heart size is enlarged. The pulmonary vasculature is prominent mild increased markings are present. Correlate for pulmonary e ana. Atypical pneumonia could be considered.. IMPRESSION: 1. Clinical correlation recommended for mild congestive heart failure [facility], , 04/26/2025 7:40 AM
[2025-04-26 07:46] LABS: NT-Pro-B-Type Natriuretic Pept 45800 pg/mL
[2025-04-26] MEDS: ACETAMINOPHEN IV (For NPO) 1,000 MG in EMPTY BAG 1 BAG IVPB STA (08:02)
[2025-04-26] MEDS: SODIUM ZIRCONIUM CYCLOSILICATE 10 GM PACKET PO ONE (08:03)
[2025-04-26 08:18] LABS: Glucose,Whole Blood 149 mg/dL (70-110)
[2025-04-26] MEDS: PROCHLORPERAZINE INJ 10 MG/2 ML VIAL IVP STA (09:50)
[2025-04-26] MEDS: diphenhydrAMINE 50 MG/ML 1 ML VIAL IVP STA (09:50)
--- NOTE | 2025-04-26 11:59 | CT ---
EXAMINATION TYPE: CT brain wo con DATE OF EXAM: 04/26/2025 11:41 AM COMPARISON: None. CLINICAL INDICATION: Female, 35 years old with history of Headache, LEGER. AMS. TECHNIQUE: Brain: Axial CT images of the brain were obtained with coronal and sagittal reformats created and rev iewed. Contrast used: None. Oral contrast used: None. CT DLP: 1068.4 mGycm, Automated exposure control for dose reduction was used. FINDINGS: Brain: Extra-axial spaces: No abnormal extra-axial fluid collections. Ventricular system: Within normal limits Cerebral parenchyma: No acute intraparenchymal hemorrhage or mass effect. The darling-white junction is well differentiated. Cerebellum: Unremarkable. Mass effect: No evidence of midline shift. Intracranial vasculature: unremarkable Soft tissues: Normal. Calvarium/osseous structures: No depressed skull fracture. Paranasal sinuses and mastoid air cells: Mild scattered paranasal sinus disease. Visualized orbits: Orbital contents are intact. IMPRESSION: No acute intracranial process. [facility], , 04/26/2025 11:56 AM
[2025-04-26] MEDS ORDERED: NALOXONE 0.4 MG/ML 1 ML VIAL IV PRN (13:16)
[2025-04-26] MEDS ORDERED: ONDANSETRON 4 MG/2 ML VIAL IVP PRN (13:16)
[2025-04-26] MEDS ORDERED: DRY MOUTH SPRAY 59 SPRAY/59 ML SPRAY MUCOUS MEM PRN (14:45)
[2025-04-26] MEDS ORDERED: IPRATROPIUM-ALBUTEROL 3 ML NEB INHALATION PRN (14:45)
[2025-04-26] MEDS ORDERED: oxyCODONE-APAP 10-325MG 1 EACH TAB PO PRN (14:45)
[2025-04-26] MEDS ORDERED: ACETAMINOPHEN TAB 325 MG TAB PO PRN (14:45)
[2025-04-26] MEDS: DIVALPROEX 500 MG TABLET.DR PO SCH (18:02)
[2025-04-26] MEDS: cloNIDine HCL 0.1 MG TAB PO SCH (18:02)
[2025-04-26] MEDS: ACETAMINOPHEN TAB 325 MG TAB PO PRN (18:02)
[2025-04-26 18:11] LABS: Glucose,Whole Blood 279 mg/dL (70-110)
[2025-04-26] MEDS: INSULIN LISPRO (HumaLOG) 100 UNIT/ML 10 mL VL SQ SCH (18:14)
[2025-04-26] MEDS: LIDOCAINE 4% CREAM 5 GM TUBE TOPICAL SCH (19:48)
[2025-04-26] MEDS: [UNRECOGNIZED DRUG - OTHER] SQ SCH (19:48)
[2025-04-26] MEDS: LIDOCAINE 4% PATCH TOPICAL SCH (19:49)
[2025-04-26 20:21] LABS: Glucose,Whole Blood 261 mg/dL (70-110)
[2025-04-26] MEDS: MELATONIN 1 MG TAB PO SCH (22:14)
[2025-04-26] MEDS: INSULIN GLARGINE (LANTUS) 100 UNIT/ML SYR SQ SCH (22:14)
[2025-04-26] MEDS: FAMOTIDINE 20 MG TAB PO SCH (22:14)
[2025-04-26] MEDS: GABAPENTIN 100 MG CAP PO SCH (22:15)
[2025-04-26] MEDS: CALCIUM ACETATE 667 MG TAB PO SCH (22:15)
[2025-04-26] MEDS: ATORVASTATIN 40 MG TAB PO SCH (22:15)
[2025-04-26] MEDS: traZODone HCL 50 MG TAB PO SCH (22:15)
[2025-04-26] MEDS: carvediloL 12.5 MG TAB PO SCH (22:15)
[2025-04-26] MEDS: ALPRAZolam 0.25 MG TAB PO PRN (22:36)
[2025-04-26] MEDS: HYDROcodone/APAP 5-325MG 1 EACH TAB PO PRN (22:36)
[2025-04-26] MEDS: hydrOXYzine HCL 25 MG TAB PO PRN (23:17)
[2025-04-27] MEDS: IPRATROPIUM-ALBUTEROL 3 ML NEB INHALATION SCH (03:18)
[2025-04-27] MEDS: MORPHINE SULFATE 4 MG/ML SYRINGE IV PRN (04:27)
[2025-04-27 05:49] LABS: Glucose,Whole Blood 588 mg/dL (70-110)
[2025-04-27 05:49] LABS: Glucose,Whole Blood 545 mg/dL (70-110)
[2025-04-27] MEDS: LEVOTHYROXINE 88 MCG TAB PO SCH (06:16)
[2025-04-27] MEDS ORDERED: DEXTROSE 50% SYRINGE 50 ML IVP PRN ×2 (08:45)
[2025-04-27] MEDS: LORATADINE 10 MG TAB PO SCH (08:57)
[2025-04-27] MEDS: PANTOPRAZOLE 40 MG/10 ML VIAL IV SCH (08:58)
[2025-04-27] MEDS: ASPIRIN 81 MG PO SCH (08:58)
[2025-04-27] MEDS: DOCUSATE 100 MG CAP PO SCH (08:58)
[2025-04-27] MEDS: FOLIC ACID-VIT B COMPLEX-VIT C 1 CAP PO SCH (08:59)
[2025-04-27] MEDS: LINAGLIPTIN 5 MG TABLET PO SCH (08:59)
[2025-04-27] MEDS: SERTRALINE 100 MG TAB PO SCH (08:59)
[2025-04-27] MEDS: ISOSORBIDE MONONITRATE ER 60 MG TAB.ER.24H PO SCH (08:59)
[2025-04-27 09:14] LABS: Glucose,Whole Blood 382 mg/dL (70-110)
[2025-04-27 10:08] VITALS: RESP 17
[2025-04-27 10:51] LABS: African American GFR (CKD) 12 (>60 ml/min/1.73 sqM); Anion Gap 12 mmol/L; Blood Urea Nitrogen 45 mg/dL (7-17); Calcium 9.5 mg/dL (8.4-10.2); Carbon Dioxide 29 mmol/L (22-30); Chloride 88 mmol/L (98-107); Glucose 384 mg/dL (74-99); Non-African American GFR(CKD) 11 (>60 ml/min/1.73 sqM); Potassium 5.6 mmol/L (3.5-5.1); Sodium 129 mmol/L (137-145)
[2025-04-27 11:45] LABS: Glucose,Whole Blood 422 mg/dL (70-110)
[2025-04-27] MEDS: diphenhydrAMINE 50 MG/ML 1 ML VIAL IVP PRN (12:00)
[2025-04-27] MEDS: INSULIN LISPRO (HumaLOG) 100 UNIT/ML 10 mL VL SQ SCH ×2 (12:00→12:34)
[2025-04-27] MEDS: polyethylene glycoL 3350 17 GM POWD.PACK PO SCH (12:01)
[2025-04-27] MEDS: AMOXIC-POT CLAV 500-125 MG 1 EACH TAB PO SCH (12:01)
--- NOTE | 2025-04-27 12:36 | P.HPIM ---
History of Present Illness Patient is a 35-year-old female with extensive medical history including end- stage renal disease hemodialysis dependent multiple hospitalizations. Patient was at dialysis center found to have very low blood sugars of 29 because of whi ch patient was sent in here patient received multiple sugary foods after which her blood sugars went up to 100 now they are coming down to 300 patient usually uses 11 units twice a day of long-acting insulin very along with 8 units with each meal. Patient does not have any symptoms of hypo or hyperglycemia at this time. Patient is hypokalemic patient is consistently hyperkalemic. Patient received Lokelma and cocktail for hyperkalemia after which potassium has come down but still high at 5.8. Patient's blood pressure is fairly well-controlled at this time. REVIEW OF SYSTEMS: All other systems are negative except those mentioned in the HPI PHYSICAL EXAMINATION: GENERAL: The patient is alert and oriented x3, not in any acute distress. Well developed, well nourished. HEENT: Pupils are round and equally reacting to light. EOMI. No scleral icterus. No conjunctival pallor. Normocephalic, atraumatic. No pharyngeal erythema. No thyromegaly. CARDIOVASCULAR: S1 and S2 present. No murmurs, rubs, or gallops. PULMONARY: Chest is clear to auscultation, no wheezing or crackles. ABDOMEN: Soft, nontender, nondistended, normoactive bowel sounds. No palpable organomegaly. MUSCULOSKELETAL: No joint swelling or deformity. EXTREMITIES: No cyanosis, clubbing, or pedal edema. NEUROLOGICAL: Gross neurological examination did not reveal any focal deficits. SKIN: No rashes. Assessment and plan -Hypoglycemia patient's recent hemoglobin A1c about a month ago was 7.3 patient appears to have fairly well-controlled blood sugars we will cut down the insulin dose to 5 units 3 times daily with each meals short acting and patient will continue her long-acting insulin. Patient was asked to check the blood sugars and if they continue to go up patient can increase the Premeal insulin to 60 units and closely follow-up with PCP patient will be discharged today. Patient's high blood sugars now initiated secondary to sugary foods she received due to her hypoglycemia but I expect this to improve in a day or 2 and will not need further hospitalization to can monitor these blood sugars. - End-stage renal disease hemodialysis dependent patient will resume her regular hemodialysis sessions - Uncontrolled elevated blood pressures patient blood pressures during this hospitalization fairly controlled on her home regimen which we will continue - Hyperkalemia patient is persistently hyperkalemic will give another dose of Lokelma now patient will discharge on daily Lokelma -Type 1 diabetes mellitus uncontrolled low blood sugars - Gastroesophageal reflux disease - Seizure disorder - Hypothyroidism patient will be discharged today with above-mentioned plan Past Medical History Past Medical History: Diabetes Mellitus, GERD/Reflux, Hypertension, Renal Disease, Seizure Disorder, Thyroid Disorder Additional Past Medical History / Comment(s): Neuropathy, last seizure 2020, gastroparesis, headaches with dialysis, states "fast heart rate" since giving ., receives Hemodialysis Wednesday- and Saturdays at [facility]., right chest hemodialysis catheter., severe HTN, hx of c-diff 2013., 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 Past Anesthesia/Blood Transfusion Reactions: Previous Problems w/ Anesthesia Additional Past Anesthesia/Blood Transfusion Reaction / Comment(s): confusion Past Psychological History: Anxiety, Depression Smoking Status: Current every day smoker Past Alcohol Use History: None Reported Past Drug Use History: Marijuana - Past Family History Father History Unknown: Yes Family Medical History: Unable to Obtain Mother History Unknown: Yes Family Medical History: No Reported History Grandfather History Unknown: Yes Family Medical History: Coronary Artery Disease (CAD) Additional Family Medical History / Comment(s): Diabetes mellitus type 2 Medications and Allergies Home Medications Medication Instructions Recorded Confirmed Type Docusate [Colace] 100 mg PO DAILY@79902/05/24 04/26/25 History Lidocaine 4% Patch 1 patch TOPICAL DAILY@79902/05/24 04/26/25 History Ipratropium-Albuterol Nebulize 3 ml INHALATION RT-TID PRN each 02/14/24 04/26/25 Rx [Duoneb 0.5 mg-3 mg/3 ml Soln] polyethylene glycoL 3350 [Miralax] 17 gm PO AC-LUNCH #527 gm 02/14/24 04/26/25 Rx Acetaminophen [Tylenol] 650 mg PO Q4H PRN 02/18/24 04/26/25 History Biotene Dry Mouth/Throat 10 ml PO BID PRN 02/18/24 04/26/25 History Melatonin 1 mg PO HS tab 02/25/24 04/26/25 Rx Loratadine [Claritin] 5 mg PO DAILY tab 03/30/24 04/26/25 Rx Aspirin 81 mg PO DAILY@0800 #30 tab 05/18/24 04/26/25 Rx Famotidine [Pepcid] 20 mg PO BID #60 tab 07/11/24 04/26/25 Rx Levothyroxine Sodium [Synthroid] 175 mcg PO DAILY@0600 08/14/24 04/26/25 History Sertraline [Zoloft] 200 mg PO DAILY@0800 08/14/24 04/26/25 History Atorvastatin [Lipitor] 40 mg PO HS #0 11/23/24 04/26/25 Rx Folic Acid/Vit B Complex and C 0.8 mg PO DAILY 12/20/24 04/26/25 History [Davina-Mayte Tablet] traZODone HCL [Desyrel] 50 mg PO HS #20 tab 01/01/25 04/26/25 Rx Isosorbide Mononitrate ER [Imdur] 120 mg PO DAILY #60 tab 01/02/25 04/26/25 Rx NIFEdipine XL [Procardia XL] 60 mg PO BID 30 Days #60 tab 01/02/25 04/26/25 Rx Gabapentin [Neurontin] 100 mg PO BID 30 Days #60 cap 01/03/25 04/26/25 Rx Linagliptin [Tradjenta] 5 mg PO DAILY #30 tab 01/03/25 04/26/25 Rx Insulin Lispro [humaLOG Kwikpen] See Protocol SQ AC-TID 01/22/25 04/26/25 History cloNIDine HCL [Catapres] 0.3 mg PO TID 01/22/25 04/26/25 History carvediloL [Coreg] 50 mg PO BID #120 tablet 02/15/25 04/26/25 Rx Calcium Acetate [PhosLo] 1,334 mg PO TID-W/MEALS 30 Days 02/19/25 04/26/25 Rx #360 tab Ipratropium-Albuterol Nebulize 3 ml INHALATION RT-TID #100 each 02/19/25 04/26/25 Rx [Duoneb 0.5 mg-3 mg/3 ml Soln] ALPRAZolam [Xanax] 0.25 mg PO BID PRN 02/26/25 04/26/25 History Divalproex Sodium [Depakote] 500 mg PO BID@0800,1700 02/26/25 04/26/25 History Lidocaine 5% Cream 1 applic TOPICAL MOTUWETHSA 02/26/25 04/26/25 History Methoxy Peg-Epoetin Beta [Mircera] 100 mcg SQ Q14D 02/26/25 04/26/25 History Insulin Glargine (Lantus) [Lantus 11 unit SQ BID #0 03/18/25 04/26/25 Rx Vial] oxyCODONE HCL/ACETAMINOPHEN 1 tab PO DAILY PRN 04/16/25 04/26/25 History [Percocet 10-325 mg] hydrOXYzine HCL [Atarax] 25 mg PO TID PRN #10 tab 04/24/25 04/26/25 Rx INSULIN LISPRO (HumaLOG) [HumaLOG] 5 unit SQ AC-TID each 04/27/25 Rx Sodium Zirconium Cyclosilicate 10 gm PO DAILY #30 04/27/25 Rx [Lokelma] Allergies Allergy/AdvReac Type Severity Reaction Status Date / Time hydromorphone HCl Allergy Anaphylaxis Verified 04/26/25 13:38 [From Dilaudid] propoxyphene Allergy Rash/Hives Verified 04/26/25 13:38 [From Darvocet-N] tramadol Allergy Anaphylaxis Verified 04/26/25 13:38 ampicillin [From Unasyn] AdvReac Itching Verified 04/27/25 09:37 ibuprofen [From Motrin] AdvReac unable to Verified 04/26/25 13:38 take due to kidney disease sulbactam [From Unasyn] AdvReac Itching Verified 04/27/25 09:37 venom-honey bee AdvReac passes out Verified 04/26/25 13:38 [bee venom (honey bee)] Physical Exam Vitals: Vital Signs Temp Pulse Pulse Pulse Resp BP BP 04/27/25 09:00 98 F 74 17 146/86 04/27/25 07:58 82 04/27/25 07:46 76 04/27/25 07:00 97.9 F 71 15 123/68 04/27/25 01:02 98.4 F 69 18 156/74 04/26/25 20:00 97.4 F L 79 20 166/78 04/26/25 19:41 82 18 135/68 04/26/25 18:06 81 18 206/109 04/26/25 16:53 98.2 F 76 18 196/105 04/26/25 13:00 64 20 134/84 Pulse Ox 04/27/25 09:00 97 04/27/25 07:58 04/27/25 07:46 04/27/25 07:00 98 04/27/25 01:02 96 04/26/25 20:00 98 04/26/25 19:41 95 04/26/25 18:06 97 04/26/25 16:53 04/26/25 13:00 96 Intake and Output 04/26/25 04/27/25 04/27/25 22:59 06:59 14:59 Intake Total 622 10 Output Total 8400 Balance -7778 10 Intake: IV 10 Invasive Line 1 10 Oral 222 Hemodialysis 400 Output: Hemodialysis 4400 Hemodialysis Net Amount 4000 Other: # Voids 1 3 Weight 68.039 kg Results CBC & Chem 7: 04/26/25 06:39 04/27/25 10:09 Labs: Abnormal Lab Results - Last 24 Hours (Table) 04/26/25 04/26/25 04/27/25 Range/Units 18:09 20:18 05:47 Sodium (137-145) mmol/L Potassium (3.5-5.1) mmol/L Chloride (98-107) mmol/L BUN (7-17) mg/dL Creatinine (0.52-1.04) mg/dL Glucose (74-99) mg/dL POC Glucose (mg/dL) 279 H 261 H 545 H* (70-110) mg/dL 04/27/25 04/27/25 04/27/25 Range/Units 05:48 09:13 10:09 Sodium 129 L (137-145) mmol/L Potassium 5.6 H (3.5-5.1) mmol/L Chloride 88 L (98-107) mmol/L BUN 45 H (7-17) mg/dL Creatinine 4.91 H (0.52-1.04) mg/dL Glucose 384 H (74-99) mg/dL POC Glucose (mg/dL) 588 H* 382 H (70-110) mg/dL 04/27/25 Range/Units 11:43 Sodium (137-145) mmol/L Potassium (3.5-5.1) mmol/L Chloride (98-107) mmol/L BUN (7-17) mg/dL Creatinine (0.52-1.04) mg/dL Glucose (74-99) mg/dL POC Glucose (mg/dL) 422 H (70-110) mg/dL
--- NOTE | 2025-04-27 12:37 | P.DS ---
Providers Date of admission: 04/26/25 13:40 Attending physician: Dahiana Chan Consults: 04/26/25 13:16 Consult Physician Urgent Consulting Provider: Randi Severino Consult Reason/Comments: Intractable headache Do you want consulting provider notified?: Yes Consult Physician Urgent Consulting Provider: Charlene Lim Consult Reason/Comments: Dialysis patient Do you want consulting provider notified?: Yes Primary care physician: Rush Marroquin MD Hospital Course: Patient is a 35-year-old female with extensive medical history including end- stage renal disease hemodialysis dependent multiple hospitalizations. Patient was at dialysis center found to have very low blood sugars of 29 because of which patient was sent in here patient received multiple sugary foods after which her blood sugars went up to 100 now they are coming down to 300 patient usually uses 11 units twice a day of long-acting insulin very along with 8 units with each meal. Patient does not have any symptoms of hypo or hyperglycemia at this time. Patient is hypokalemic patient is consistently hyperkalemic. Patient received Lokelma and cocktail for hyperkalemia after which potassium has come down but still high at 5.8. Patient's blood pressure is fairly well- controlled at this time. REVIEW OF SYSTEMS: All other systems are negative except those mentioned in the HPI PHYSICAL EXAMINATION: GENERAL: The patient is alert and oriented x3, not in any acute distress. Well developed, well nourished. HEENT: Pupils are round and equally reacting to light. EOMI. No scleral icterus. No conjunctival pallor. Normocephalic, atraumatic. No pharyngeal erythema. No thyromegaly. CARDIOVASCULAR: S1 and S2 present. No murmurs, rubs, or gallops. PULMONARY: Chest is clear to auscultation, no wheezing or crackles. ABDOMEN: Soft, nontender, nondistended, normoactive bowel sounds. No palpable organomegaly. MUSCULOSKELETAL: No joint swelling or deformity. EXTREMITIES: No cyanosis, clubbing, or pedal edema. NEUROLOGICAL: Gross neurological examination did not reveal any focal deficits. SKIN: No rashes. Assessment and plan -Hypoglycemia patient's recent hemoglobin A1c about a month ago was 7.3 patient appears to have fairly well-controlled blood sugars we will cut down the insulin dose to 5 units 3 times daily with each meals short acting and patient will continue her long-acting insulin. Patient was asked to check the blood sugars and if they continue to go up patient can increase the Premeal insulin to 60 units and closely follow-up with PCP patient will be discharged today. Patient's high blood sugars now initiated secondary to sugary foods she received due to her hypoglycemia but I expect this to improve in a day or 2 and will not need further hospitalization to can monitor these blood sugars. - End-stage renal disease hemodialysis dependent patient will resume her regular hemodialysis sessions - Uncontrolled elevated blood pressures patient blood pressures during this hospitalization fairly controlled on her home regimen which we will continue - Hyperkalemia patient is persistently hyperkalemic will give another dose of Lokelma now patient will discharge on daily Lokelma -Type 1 diabetes mellitus uncontrolled low blood sugars - Gastroesophageal reflux disease - Seizure disorder - Hypothyroidism patient will be discharged today with above-mentioned plan Plan - Discharge Summary Discharge Rx Participant: No New Discharge Prescriptions: New INSULIN LISPRO (HumaLOG) [HumaLOG] 5 unit SQ AC-TID each Sodium Zirconium Cyclosilicate [Lokelma] 10 gm PO DAILY #30 Continue Lidocaine 4% Patch 1 patch TOPICAL DAILY@0800 Ipratropium-Albuterol Nebulize [Duoneb 0.5 mg-3 mg/3 ml Soln] 3 ml INHALATION RT-TID PRN each PRN Reason: Shortness Of Breath Or Wheezing Biotene Dry Mouth/Throat 10 ml PO BID PRN PRN Reason: DRY MOUTH/THROAT Acetaminophen [Tylenol] 650 mg PO Q4H PRN PRN Reason: Pain Or Fever > 100.5 Loratadine [Claritin] 5 mg PO DAILY tab Sertraline [Zoloft] 200 mg PO DAILY@0800 Atorvastatin [Lipitor] 40 mg PO HS #0 Folic Acid/Vit B Complex and C [Davina-Mayte Tablet] 0.8 mg PO DAILY Isosorbide Mononitrate ER [Imdur] 120 mg PO DAILY #60 tab NIFEdipine XL [Procardia XL] 60 mg PO BID 30 Days #60 tab Gabapentin [Neurontin] 100 mg PO BID 30 Days #60 cap Linagliptin [Tradjenta] 5 mg PO DAILY #30 tab cloNIDine HCL [Catapres] 0.3 mg PO TID Insulin Lispro [humaLOG Kwikpen] See Protocol SQ AC-TID carvediloL [Coreg] 50 mg PO BID #120 tablet Lidocaine 5% Cream 1 applic TOPICAL MOTUWETHSA ALPRAZolam [Xanax] 0.25 mg PO BID PRN PRN Reason: Anxiety Docusate [Colace] 100 mg PO DAILY@0800 polyethylene glycoL 3350 [Miralax] 17 gm PO AC-LUNCH #527 gm Melatonin 1 mg PO HS tab Aspirin 81 mg PO DAILY@0800 #30 tab Famotidine [Pepcid] 20 mg PO BID #60 tab Levothyroxine Sodium [Synthroid] 175 mcg PO DAILY@0600 traZODone HCL [Desyrel] 50 mg PO HS #20 tab Ipratropium-Albuterol Nebulize [Duoneb 0.5 mg-3 mg/3 ml Soln] 3 ml INHALATION RT-TID #100 each Calcium Acetate [PhosLo] 1,334 mg PO TID-W/MEALS 30 Days #360 tab Divalproex Sodium [Depakote] 500 mg PO BID@0800,1700 Methoxy Peg-Epoetin Beta [Mircera] 100 mcg SQ Q14D Insulin Glargine (Lantus) [Lantus Vial] 11 unit SQ BID #0 oxyCODONE HCL/ACETAMINOPHEN [Percocet 10-325 mg] 1 tab PO DAILY PRN PRN Reason: Pain hydrOXYzine HCL [Atarax] 25 mg PO TID PRN #10 tab PRN Reason: Itching Discontinued Insulin Lispro [humaLOG Kwikpen] 8 unit SQ AC-TID Discharge Medication List Docusate [Colace] 100 mg PO DAILY@0800 02/05/24 [History] Lidocaine 4% Patch 1 patch TOPICAL DAILY@0800 02/05/24 [History] Ipratropium-Albuterol Nebulize [Duoneb 0.5 mg-3 mg/3 ml Soln] 3 ml INHALATION RT-TID PRN each 02/14/24 [Rx] polyethylene glycoL 3350 [Miralax] 17 gm PO AC-LUNCH #527 gm 02/14/24 [Rx] Acetaminophen [Tylenol] 650 mg PO Q4H PRN 02/18/24 [History] Biotene Dry Mouth/Throat 10 ml PO BID PRN 02/18/24 [History] Melatonin 1 mg PO HS tab 02/25/24 [Rx] Loratadine [Claritin] 5 mg PO DAILY tab 03/30/24 [Rx] Aspirin 81 mg PO DAILY@0800 #30 tab 05/18/24 [Rx] Famotidine [Pepcid] 20 mg PO BID #60 tab 07/11/24 [Rx] Levothyroxine Sodium [Synthroid] 175 mcg PO DAILY@0600 08/14/24 [History] Sertraline [Zoloft] 200 mg PO DAILY@0800 08/14/24 [History] Atorvastatin [Lipitor] 40 mg PO HS #0 11/23/24 [Rx] Folic Acid/Vit B Complex and C [Davina-Mayte Tablet] 0.8 mg PO DAILY 12/20/24 [History] traZODone HCL [Desyrel] 50 mg PO HS #20 tab 01/01/25 [Rx] Isosorbide Mononitrate ER [Imdur] 120 mg PO DAILY #60 tab 01/02/25 [Rx] NIFEdipine XL [Procardia XL] 60 mg PO BID 30 Days #60 tab 01/02/25 [Rx] Gabapentin [Neurontin] 100 mg PO BID 30 Days #60 cap 01/03/25 [Rx] Linagliptin [Tradjenta] 5 mg PO DAILY #30 tab 01/03/25 [Rx] Insulin Lispro [humaLOG Kwikpen] See Protocol SQ AC-TID 01/22/25 [History] cloNIDine HCL [Catapres] 0.3 mg PO TID 01/22/25 [History] carvediloL [Coreg] 50 mg PO BID #120 tablet 02/15/25 [Rx] Calcium Acetate [PhosLo] 1,334 mg PO TID-W/MEALS 30 Days #360 tab 02/19/25 [Rx] Ipratropium-Albuterol Nebulize [Duoneb 0.5 mg-3 mg/3 ml Soln] 3 ml INHALATION RT-TID #100 each 02/19/25 [Rx] ALPRAZolam [Xanax] 0.25 mg PO BID PRN 02/26/25 [History] Divalproex Sodium [Depakote] 500 mg PO BID@0800,1700 02/26/25 [History] Lidocaine 5% Cream 1 applic TOPICAL MOTUWETHSA 02/26/25 [History] Methoxy Peg-Epoetin Beta [Mircera] 100 mcg SQ Q14D 02/26/25 [History] Insulin Glargine (Lantus) [Lantus Vial] 11 unit SQ BID #0 03/18/25 [Rx] oxyCODONE HCL/ACETAMINOPHEN [Percocet 10-325 mg] 1 tab PO DAILY PRN 04/16/25 [History] hydrOXYzine HCL [Atarax] 25 mg PO TID PRN #10 tab 04/24/25 [Rx] INSULIN LISPRO (HumaLOG) [HumaLOG] 5 unit SQ AC-TID each 04/27/25 [Rx] Sodium Zirconium Cyclosilicate [Lokelma] 10 gm PO DAILY #30 04/27/25 [Rx] Follow up Appointment(s)/Referral(s): Rush Marroquin MD [Primary Care Provider] - 1-2 days (please call to schedule. ) Patient Instructions/Handouts: Hypoglycemia in a Person with Diabetes (DC), Hyperkalemia (DC), Diabetic Hyperglycemia (DC) Activity/Diet/Wound Care/Special Instructions: finish course of abx from script sent in prior. Discharge Disposition: HOME SELF-CARE
[2025-04-27] MEDS: SODIUM ZIRCONIUM CYCLOSILICATE 10 GM PACKET PO ONE ×2 (12:47→12:58)
[2025-04-27 13:00] VITALS: BP 114/68; PULSE 67; TEMP 97.9
[2025-04-27 14:57] LABS: Glucose,Whole Blood 238 mg/dL (70-110)
--- NOTE | 2025-04-27 21:59 | P.NPCON ---
History of Present Illness - Reason for Consult end stage renal disease - History of Present Illness Patient is a 35-year-old female with end-stage renal disease on hemodialysis on Wednesday and Wednesday as outpatient. She is admitted to the hospital with severe headaches and hypoglycemia. Patient states her blood sugar was down to 29 and did not increase with multiple attempts. Blood sugar is currently elevated at 588 Potassium was 6.4 yesterday. Patient was dialyzed yesterday with UF of 4 L. 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 Past Anesthesia/Blood Transfusion Reactions: Previous Problems w/ Anesthesia Additional Past Anesthesia/Blood Transfusion Reaction / Comment(s): confusion Past Psychological History: Anxiety, Depression Smoking Status: Current every day smoker Past Alcohol Use History: None Reported Past Drug Use History: Marijuana - Past Family History Father History Unknown: Yes Family Medical History: Unable to Obtain Mother History Unknown: Yes Family Medical History: No Reported History Grandfather History Unknown: Yes Family Medical History: Coronary Artery Disease (CAD) Additional Family Medical History / Comment(s): Diabetes mellitus type 2 Medications and Allergies Home Medications Medication Instructions Recorded Confirmed Type Docusate [Colace] 100 mg PO DAILY@0800 02/05/24 04/26/25 History Lidocaine 4% Patch 1 patch TOPICAL DAILY@0800 02/05/24 04/26/25 History Ipratropium-Albuterol Nebulize 3 ml INHALATION RT-TID PRN each 02/14/24 04/26/25 Rx [Duoneb 0.5 mg-3 mg/3 ml Soln] polyethylene glycoL 3350 [Miralax] 17 gm PO AC-LUNCH #527 gm 02/14/24 04/26/25 Rx Acetaminophen [Tylenol] 650 mg PO Q4H PRN 02/18/24 04/26/25 History Biotene Dry Mouth/Throat 10 ml PO BID PRN 02/18/24 04/26/25 History Melatonin 1 mg PO HS tab 02/25/24 04/26/25 Rx Loratadine [Claritin] 5 mg PO DAILY tab 03/30/24 04/26/25 Rx Aspirin 81 mg PO DAILY@0800 #30 tab 05/18/24 04/26/25 Rx Famotidine [Pepcid] 20 mg PO BID #60 tab 07/11/24 04/26/25 Rx Levothyroxine Sodium [Synthroid] 175 mcg PO DAILY@0600 08/14/24 04/26/25 History Sertraline [Zoloft] 200 mg PO DAILY@0800 08/14/24 04/26/25 History Atorvastatin [Lipitor] 40 mg PO HS #0 11/23/24 04/26/25 Rx Folic Acid/Vit B Complex and C 0.8 mg PO DAILY 12/20/24 04/26/25 History [Davina-Mayte Tablet] traZODone HCL [Desyrel] 50 mg PO HS #20 tab 01/01/25 04/26/25 Rx Isosorbide Mononitrate ER [Imdur] 120 mg PO DAILY #60 tab 01/02/25 04/26/25 Rx NIFEdipine XL [Procardia XL] 60 mg PO BID 30 Days #60 tab 01/02/25 04/26/25 Rx Gabapentin [Neurontin] 100 mg PO BID 30 Days #60 cap 01/03/25 04/26/25 Rx Linagliptin [Tradjenta] 5 mg PO DAILY #30 tab 01/03/25 04/26/25 Rx Insulin Lispro [humaLOG Kwikpen] See Protocol SQ AC-TID 01/22/25 04/26/25 History cloNIDine HCL [Catapres] 0.3 mg PO TID 01/22/25 04/26/25 History carvediloL [Coreg] 50 mg PO BID #120 tablet 02/15/25 04/26/25 Rx Calcium Acetate [PhosLo] 1,334 mg PO TID-W/MEALS 30 Days 02/19/25 04/26/25 Rx #360 tab Ipratropium-Albuterol Nebulize 3 ml INHALATION RT-TID #100 each 02/19/25 04/26/25 Rx [Duoneb 0.5 mg-3 mg/3 ml Soln] ALPRAZolam [Xanax] 0.25 mg PO BID PRN 02/26/25 04/26/25 History Divalproex Sodium [Depakote] 500 mg PO BID@0800,1700 02/26/25 04/26/25 History Lidocaine 5% Cream 1 applic TOPICAL MOTUWETHSA 02/26/25 04/26/25 History Methoxy Peg-Epoetin Beta [Mircera] 100 mcg SQ Q14D 02/26/25 04/26/25 History Insulin Glargine (Lantus) [Lantus 11 unit SQ BID #0 03/18/25 04/26/25 Rx Vial] oxyCODONE HCL/ACETAMINOPHEN 1 tab PO DAILY PRN 04/16/25 04/26/25 History [Percocet 10-325 mg] hydrOXYzine HCL [Atarax] 25 mg PO TID PRN #10 tab 04/24/25 04/26/25 Rx INSULIN LISPRO (HumaLOG) [HumaLOG] 5 unit SQ AC-TID each 04/27/25 Rx Sodium Zirconium Cyclosilicate 10 gm PO DAILY #30 04/27/25 Rx [Lokelma] Allergies Allergy/AdvReac Type Severity Reaction Status Date / Time hydromorphone HCl Allergy Anaphylaxis Verified 04/26/25 13:38 [From Dilaudid] propoxyphene Allergy Rash/Hives Verified 04/26/25 13:38 [From Darvocet-N] tramadol Allergy Anaphylaxis Verified 04/26/25 13:38 ampicillin [From Unasyn] AdvReac Itching Verified 04/27/25 09:37 ibuprofen [From Motrin] AdvReac unable to Verified 04/26/25 13:38 take due to kidney disease sulbactam [From Unasyn] AdvReac Itching Verified 04/27/25 09:37 venom-honey bee AdvReac passes out Verified 04/26/25 13:38 [bee venom (honey bee)] Physical Exam Vitals: Vital Signs Temp Pulse Pulse Resp BP Pulse Ox 04/27/25 13:00 97.9 F 67 17 114/68 97 04/27/25 09:00 98 F 74 17 146/86 97 04/27/25 07:58 82 04/27/25 07:46 76 04/27/25 07:00 97.9 F 71 15 123/68 98 04/27/25 01:02 98.4 F 69 18 156/74 96 Intake and Output 04/27/25 04/27/25 04/27/25 06:59 14:59 22:59 Intake Total 10 Balance 10 Intake: IV 10 Invasive Line 1 10 Other: # Voids 3 Patient is awake, comfortable, no acute distress Evaluation of her heart S1 and S2 Examination of the lungs bilateral breath sounds are heard Abdomen is soft nontender Examination of lower extremity shows no edema Results - Lab Results Most recent lab results Calcium 9.5 mg/dL (8.4-10.2) 04/27/25 10:09 Phosphorus 7.4 mg/dL (2.5-4.5) H 04/26/25 06:39 Magnesium 2.1 mg/dL (1.6-2.3) 04/26/25 06:39 04/26/25 06:39 04/27/25 10:09 Assessment and Plan Assessment: 1. End-stage renal disease on hemodialysis 4 times a week 2. Hyperkalemia associated with end-stage renal disease and hyperglycemia 3. Brittle diabetes with hypoglycemia on initial admission 4. Hypertension with end-stage renal disease partly volume sensitive Plan: Repeat hemodialysis in a.m. Patient can be dialyzed as outpatient if discharged today.
== END 2025-04-27 15:06 | disposition home or self-care (01) ==
LOC: EC 06:26 → 6NMEDSUR 13:40 → 3SCARD 04-27 08:58
PROVIDERS: ADMIT Hospitalist; ATTEND Hospitalist
DX: E10.649 Type 1 diabetes mellitus with hypoglycemia without coma (principal); E87.5 Hyperkalemia; E10.43 Type 1 diabetes mellitus with diabetic autonomic (poly)neuropathy; K31.84 Gastroparesis; E10.65 Type 1 diabetes mellitus with hyperglycemia; K21.9 Gastro-esophageal reflux disease without esophagitis; F32.A Depression, unspecified; F41.9 Anxiety disorder, unspecified; I13.2 Hypertensive heart and chronic kidney disease with heart failure and with stage 5 chronic kidney disease, or end stage renal disease; I50.9 Heart failure, unspecified; N18.6 End stage renal disease; E10.22 Type 1 diabetes mellitus with diabetic chronic kidney disease; G40.909 Epilepsy, unspecified, not intractable, without status epilepticus; E03.9 Hypothyroidism, unspecified; I69.398 Other sequelae of cerebral infarction; H54.61 Unqualified visual loss, right eye, normal vision left eye; F17.200 Nicotine dependence, unspecified, uncomplicated; Z99.2 Dependence on renal dialysis; Z79.4 Long term (current) use of insulin; Z79.82 Long term (current) use of aspirin; Z79.84 Long term (current) use of oral hypoglycemic drugs; Z79.890 Hormone replacement therapy; Z79.899 Other long term (current) drug therapy; Z88.5 Allergy status to narcotic agent; Z88.6 Allergy status to analgesic agent
CPT/HCPCS: 96376 ×2; 96375 ×2; 96374; 99285; 36415; 94640; 93005; 83880; 80053; 80048; 83735; 84100; 84484; 85025; 85610; 85730; 84703; 71046; 70450; G0378 ×2; G0257; J2270 ×2; J1200 ×2; J0780; J2765; J0131; J2470; 90935

== ENCOUNTER 2025-04-29 09:12 | Inpatient (IN) | payer MEDICARE ==
--- NOTE | 2025-04-29 09:50 | XR ---
EXAMINATION TYPE: XR chest 1V portable DATE OF EXAM: 04/29/2025 9:41 AM COMPARISON: Chest radiograph from 3 days prior. CLINICAL INDICATION: Female, 35 years old with history of shortness of breath; [facility] TECHNIQUE: XR chest 1V portable Frontal view of the chest. FINDINGS: Lungs/Pleura: There is no evidence of pleural effusion, focal consolidation, or pneumothorax. Pulmonary vascularity: Unremarkable. Heart/mediastinum: Cardiomediastinal silhouette is enlarged. Musculoskeletal: No acute osseous pathology. IMPRESSION: mild pulmonary vascular congestion. [facility], , 04/29/2025 9:48 AM
[2025-04-29 11:17] LABS: Basophils % (A) 0.9 %; Eosinophils # (A) 0.45 10*3/uL (0.04-0.35); Eosinophils % (A) 4.1 %; HCT 28.6 % (37.2-46.3); HGB 9.5 g/dL (12.0-15.0); Lymphocytes # (A) 0.81 10*3/uL (0.90-5.00); Lymphocytes % (A) 7.4 %; MCH 32.2 pg (27.0-32.0); MCHC 33.2 g/dL (32.0-37.0); MCV 96.9 fL (80.0-97.0); Mean Platelet Volume 10.8 fL (9.5-12.2); Monocytes # (A) 0.47 10*3/uL (0.20-1.00); Monocytes % (A) 4.3 %; Neutrophils # (A) 9.11 10*3/uL (1.80-7.70); Platelet Count 248 10*3/uL (140-440); RBC 2.95 10*6/uL (4.10-5.20); RDW 16.1 % (11.5-14.5); WBC 10.97 10*3/uL (4.50-10.00)
[2025-04-29] MEDS: ONDANSETRON 4 MG/2 ML VIAL IVP STA (11:27)
[2025-04-29 11:28] LABS: INR 1.2 (<1.2); Partial Thromboplastin Time 26.7 sec (22.0-30.0); Prothrombin Time 13.2 sec (10.0-12.5)
[2025-04-29 11:36] LABS: HCG,Qualitative Serum Not Detected
[2025-04-29 11:37] LABS: ALT 181 U/L (4-34); AST 144 U/L (14-36); African American GFR (CKD) 13 (>60 ml/min/1.73 sqM); Albumin 4.1 g/dL (3.5-5.0); Alkaline Phosphatase 272 U/L (38-126); Anion Gap 12 mmol/L; Blood Urea Nitrogen 56 mg/dL (7-17); Calcium 9.4 mg/dL (8.4-10.2); Carbon Dioxide 28 mmol/L (22-30); Chloride 87 mmol/L (98-107); Glucose 410 mg/dL (74-99); Non-African American GFR(CKD) 12 (>60 ml/min/1.73 sqM); Sodium 127 mmol/L (137-145); Total Bilirubin 0.8 mg/dL (0.2-1.3); Total Protein 6.4 g/dL (6.3-8.2)
--- NOTE | 2025-04-29 11:42 | ED ---
SOB HPI - General Chief Complaint: Shortness of Breath Stated Complaint: WAQAR Time Seen by Provider: 04/29/25 09:15 Source: EMS Mode of arrival: EMS Limitations: no limitations - History of Present Illness Initial Comments: 35-year-old female with past medical history of type 1 diabetes, end-stage renal disease on hemodialysis Wednesday, , Wednesday who presents to the emergency department with shortness of breath. Patient woke this morning and was complaining of shortness of breath. EMS arrived on scene. They stated that her oxygen level was within normal limits however due to her work of breathing they placed her on a CPAP. Patient was found to be markedly hypertensive. She does have history of renal disease and reports that she got dialysis yesterday. She states she got her full treatment and they took off 5 L. She also admits that she has been taking her medications. Patient was recently started on Lokelma and states that she is taking this medication. She denies chest pain. No fevers. Patient does not make urine. No other alleviating, precipitating or modifying factors - Related Data Home Medications Medication Instructions Recorded Confirmed Docusate [Colace] 100 mg PO DAILY@0800 02/05/24 04/29/25 Lidocaine 4% Patch 1 patch TOPICAL DAILY@0802/05/24 04/29/25 Acetaminophen [Tylenol] 650 mg PO Q4H PRN 02/18/24 04/29/25 Biotene Dry Mouth/Throat 10 ml PO BID PRN 02/18/24 04/29/25 Levothyroxine Sodium [Synthroid] 175 mcg PO DAILY@0600 08/14/24 04/29/25 Sertraline [Zoloft] 200 mg PO DAILY@0800 08/14/24 04/29/25 Folic Acid/Vit B Complex and C 0.8 mg PO DAILY 12/20/24 04/29/25 [Davina-Mayte Tablet] Insulin Lispro [humaLOG Kwikpen] See Protocol SQ AC-TID 01/22/25 04/29/25 cloNIDine HCL [Catapres] 0.3 mg PO TID 01/22/25 04/29/25 ALPRAZolam [Xanax] 0.25 mg PO BID PRN 02/26/25 04/29/25 Divalproex Sodium [Depakote] 500 mg PO BID@0800,1700 02/26/25 04/29/25 Lidocaine 5% Cream 1 applic TOPICAL MOTUWETHSA 02/26/25 04/29/25 Methoxy Peg-Epoetin Beta [Mircera] 100 mcg SQ Q14D 02/26/25 04/29/25 oxyCODONE HCL/ACETAMINOPHEN 1 tab PO DAILY PRN 04/16/25 04/29/25 [Percocet 10-325 mg] Previous Rx's Medication Instructions Recorded Ipratropium-Albuterol Nebulize 3 ml INHALATION RT-TID PRN each 02/14/24 [Duoneb 0.5 mg-3 mg/3 ml Soln] polyethylene glycoL 3350 [Miralax] 17 gm PO AC-LUNCH #527 gm 02/14/24 Melatonin 1 mg PO HS tab 02/25/24 Loratadine [Claritin] 5 mg PO DAILY tab 03/30/24 Aspirin 81 mg PO DAILY@0800 #30 tab 05/18/24 Famotidine [Pepcid] 20 mg PO BID #60 tab 07/11/24 Atorvastatin [Lipitor] 40 mg PO HS #0 11/23/24 traZODone HCL [Desyrel] 50 mg PO HS #20 tab 01/01/25 Isosorbide Mononitrate ER [Imdur] 120 mg PO DAILY #60 tab 01/02/25 NIFEdipine XL [Procardia XL] 60 mg PO BID 30 Days #60 tab 01/02/25 Gabapentin [Neurontin] 100 mg PO BID 30 Days #60 cap 01/03/25 Linagliptin [Tradjenta] 5 mg PO DAILY #30 tab 01/03/25 carvediloL [Coreg] 50 mg PO BID #120 tablet 02/15/25 Calcium Acetate [PhosLo] 1,334 mg PO TID-W/MEALS 30 Days 02/19/25 #360 tab Ipratropium-Albuterol Nebulize 3 ml INHALATION RT-TID #100 each 02/19/25 [Duoneb 0.5 mg-3 mg/3 ml Soln] Insulin Glargine (Lantus) [Lantus 11 unit SQ BID #0 03/18/25 Vial] hydrOXYzine HCL [Atarax] 25 mg PO TID PRN #10 tab 04/24/25 INSULIN LISPRO (HumaLOG) [HumaLOG] 5 unit SQ AC-TID each 04/27/25 Sodium Zirconium Cyclosilicate 10 gm PO DAILY #30 04/27/25 [Lokelma] Allergies Allergy/AdvReac Type Severity Reaction Status Date / Time hydromorphone HCl Allergy Anaphylaxis Verified 04/29/25 14:12 [From Dilaudid] propoxyphene Allergy Rash/Hives Verified 04/29/25 14:12 [From Darvocet-N] tramadol Allergy Anaphylaxis Verified 04/29/25 14:12 ampicillin [From Unasyn] AdvReac Itching Verified 04/29/25 14:12 ibuprofen [From Motrin] AdvReac unable to Verified 04/29/25 14:12 take due to kidney disease sulbactam [From Unasyn] AdvReac Itching Verified 04/29/25 14:12 venom-honey bee AdvReac passes out Verified 04/29/25 14:12 [bee venom (honey bee)] Review of Systems ROS Statement: Those systems with pertinent positive or pertinent negative responses have been documented in the HPI. ROS Other: All systems not noted in ROS Statement are negative. 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 Past Anesthesia/Blood Transfusion Reactions: Previous Problems w/ Anesthesia Additional Past Anesthesia/Blood Transfusion Reaction / Comment(s): confusion Past Psychological History: Anxiety, Depression Smoking Status: Current every day smoker Past Alcohol Use History: None Reported Past Drug Use History: Marijuana - Past Family History Father History Unknown: Yes Family Medical History: Unable to Obtain Mother History Unknown: Yes Family Medical History: No Reported History Grandfather History Unknown: Yes Family Medical History: Coronary Artery Disease (CAD) Additional Family Medical History / Comment(s): Diabetes mellitus type 2 General Exam Limitations: physical limitation (Patient is on BiPAP) General appearance: alert, in no apparent distress Head exam: Present: atraumatic, normocephalic, normal inspection Eye exam: Present: normal appearance, PERRL, EOMI. Absent: scleral icterus, conjunctival injection, periorbital swelling ENT exam: Present: normal exam, mucous membranes moist Neck exam: Present: normal inspection. Absent: tenderness, meningismus, lymphadenopathy Respiratory exam: Present: rales, decreased breath sounds. Absent: respiratory distress, wheezes, rhonchi, stridor Cardiovascular Exam: Present: regular rate, normal rhythm, normal heart sounds. Absent: systolic murmur, diastolic murmur, rubs, gallop, clicks GI/Abdominal exam: Present: soft, normal bowel sounds. Absent: distended, ten derness, guarding, rebound, rigid Extremities exam: Present: normal inspection, full ROM, normal capillary refill. Absent: tenderness, pedal edema, joint swelling, calf tenderness Back exam: Present: normal inspection Neurological exam: Present: alert, oriented X3, CN II-XII intact Psychiatric exam: Present: normal affect, normal mood Skin exam: Present: warm, dry, intact, normal color. Absent: rash Course Vital Signs 04/29/25 04/29/25 04/29/25 09:13 09:57 09:58 Temperature 97.7 F Pulse Rate 85 Pulse Rate [ Play Back Operator ] Respiratory 17 Rate Blood Pressure 200/112 Blood Pressure [Right Arm] O2 Sat by Pulse 99 Oximetry Fraction of 40 40 Inspired Oxygen (FIO2) 04/29/25 04/29/25 04/29/25 11:00 12:39 13:27 Temperature Pulse Rate 89 93 Pulse Rate [ Play Back Operator ] Respiratory 17 17 Rate Blood Pressure 235/139 240/116 Blood Pressure [Right Arm] O2 Sat by Pulse 100 97 Oximetry Fraction of 40 Inspired Oxygen (FIO2) 04/29/25 04/29/25 04/29/25 13:39 13:40 13:43 Temperature Pulse Rate Pulse Rate [ Play Back Operator ] Respiratory Rate Blood Pressure 210/110 208/104 208/110 Blood Pressure [Right Arm] O2 Sat by Pulse Oximetry Fraction of Inspired Oxygen (FIO2) 04/29/25 04/29/25 04/29/25 13:45 13:47 13:51 Temperature Pulse Rate Pulse Rate [ Play Back Operator ] Respiratory Rate Blood Pressure 205/102 197/99 153/76 Blood Pressure [Right Arm] O2 Sat by Pulse Oximetry Fraction of Inspired Oxygen (FIO2) 04/29/25 04/29/25 04/29/25 13:53 13:55 13:57 Temperature Pulse Rate Pulse Rate [ Play Back Operator ] Respiratory Rate Blood Pressure 159/78 162/95 172/89 Blood Pressure [Right Arm] O2 Sat by Pulse Oximetry Fraction of Inspired Oxygen (FIO2) 04/29/25 04/29/25 04/29/25 13:59 14:01 14:03 Temperature Pulse Rate 81 Pulse Rate [ Play Back Operator ] Respiratory 17 Rate Blood Pressure 174/92 181/91 173/94 Blood Pressure [Right Arm] O2 Sat by Pulse 97 Oximetry Fraction of Inspired Oxygen (FIO2) 04/29/25 04/29/25 04/29/25 15:09 15:39 16:22 Temperature Pulse Rate 82 85 85 Pulse Rate [ Play Back Operator ] Respiratory 18 18 18 Rate Blood Pressure 196/97 197/100 183/96 Blood Pressure [Right Arm] O2 Sat by Pulse 97 98 98 Oximetry Fraction of Inspired Oxygen (FIO2) 04/29/25 04/29/25 04/29/25 16:54 17:37 18:07 Temperature 99 F Pulse Rate 87 85 Pulse Rate [ 90 Play Back Operator ] Respiratory 18 18 18 Rate Blood Pressure 196/100 194/92 Blood Pressure 194/92 [Right Arm] O2 Sat by Pulse 97 97 Oximetry Fraction of Inspired Oxygen (FIO2) 04/29/25 04/29/25 04/29/25 18:15 18:20 18:25 Temperature Pulse Rate 84 88 86 Pulse Rate [ Play Back Operator ] Respiratory 18 Rate Blood Pressure 185/93 174/96 182/100 Blood Pressure [Right Arm] O2 Sat by Pulse 99 Oximetry Fraction of Inspired Oxygen (FIO2) 04/29/25 04/29/25 04/29/25 18:30 18:35 18:40 Temperature Pulse Rate 98 93 94 Pulse Rate [ Play Back Operator ] Respiratory Rate Blood Pressure 179/92 183/89 191/103 Blood Pressure [Right Arm] O2 Sat by Pulse Oximetry Fraction of Inspired Oxygen (FIO2) 04/29/25 04/29/25 04/29/25 18:50 19:00 19:10 Temperature Pulse Rate 92 92 90 Pulse Rate [ Play Back Operator ] Respiratory 18 18 18 Rate Blood Pressure 191/107 181/100 188/104 Blood Pressure [Right Arm] O2 Sat by Pulse 99 99 Oximetry Fraction of Inspired Oxygen (FIO2) 04/29/25 04/29/25 04/29/25 19:15 19:25 19:35 Temperature Pulse Rate 92 90 92 Pulse Rate [ Play Back Operator ] Respiratory 18 18 18 Rate Blood Pressure 188/98 196/94 185/98 Blood Pressure [Right Arm] O2 Sat by Pulse 99 Oximetry Fraction of Inspired Oxygen (FIO2) 04/29/25 04/29/25 04/29/25 19:50 20:10 20:20 Temperature Pulse Rate 90 92 90 Pulse Rate [ Play Back Operator ] Respiratory Rate Blood Pressure 185/95 180/89 179/102 Blood Pressure [Right Arm] O2 Sat by Pulse Oximetry Fraction of Inspired Oxygen (FIO2) 04/29/25 04/29/25 04/29/25 20:25 21:05 21:40 Temperature Pulse Rate 93 89 98 Pulse Rate [ Play Back Operator ] Respiratory 18 18 18 Rate Blood Pressure 185/97 188/90 189/96 Blood Pressure [Right Arm] O2 Sat by Pulse 99 99 98 Oximetry Fraction of Inspired Oxygen (FIO2) 04/29/25 04/29/25 04/29/25 22:00 22:10 22:23 Temperature Pulse Rate 91 96 93 Pulse Rate [ Play Back Operator ] Respiratory 18 Rate Blood Pressure 181/99 187/95 182/95 Blood Pressure [Right Arm] O2 Sat by Pulse 99 Oximetry Fraction of Inspired Oxygen (FIO2) 04/29/25 04/29/25 04/29/25 22:25 22:37 22:41 Temperature Pulse Rate 93 81 79 Pulse Rate [ Play Back Operator ] Respiratory 18 Rate Blood Pressure 172/83 136/74 149/79 Blood Pressure [Right Arm] O2 Sat by Pulse 97 Oximetry Fraction of Inspired Oxygen (FIO2) 04/29/25 04/29/25 04/30/25 22:55 23:18 00:14 Temperature Pulse Rate 79 80 75 Pulse Rate [ Play Back Operator ] Respiratory 18 18 Rate Blood Pressure 178/93 180/96 192/99 Blood Pressure [Right Arm] O2 Sat by Pulse 100 100 Oximetry Fraction of Inspired Oxygen (FIO2) 04/30/25 04/30/25 04/30/25 02:52 03:53 04:00 Temperature Pulse Rate 69 70 Pulse Rate [ Play Back Operator ] Respiratory 18 16 Rate Blood Pressure 202/105 178/86 179/87 Blood Pressure [Right Arm] O2 Sat by Pulse 98 93 L Oximetry Fraction of Inspired Oxygen (FIO2) 04/30/25 04/30/25 04/30/25 04:25 04:30 05:00 Temperature Pulse Rate 71 70 73 Pulse Rate [ Play Back Operator ] Respiratory 18 18 16 Rate Blood Pressure 162/79 160/79 167/79 Blood Pressure [Right Arm] O2 Sat by Pulse 92 L 92 L 94 L Oximetry Fraction of Inspired Oxygen (FIO2) 04/30/25 04/30/25 04/30/25 05:45 05:55 06:00 Temperature Pulse Rate 70 87 80 Pulse Rate [ Play Back Operator ] Respiratory 18 18 18 Rate Blood Pressure 177/120 231/114 192/106 Blood Pressure [Right Arm] O2 Sat by Pulse 94 L 94 L 99 Oximetry Fraction of Inspired Oxygen (FIO2) 04/30/25 04/30/25 04/30/25 06:05 06:10 06:25 Temperature Pulse Rate 77 77 75 Pulse Rate [ Play Back Operator ] Respiratory 18 18 16 Rate Blood Pressure 187/105 172/107 169/98 Blood Pressure [Right Arm] O2 Sat by Pulse 99 98 99 Oximetry Fraction of Inspired Oxygen (FIO2) 04/30/25 04/30/25 04/30/25 06:30 06:45 07:09 Temperature Pulse Rate 74 76 73 Pulse Rate [ Play Back Operator ] Respiratory 16 16 16 Rate Blood Pressure 165/91 168/91 144/98 Blood Pressure [Right Arm] O2 Sat by Pulse 100 99 100 Oximetry Fraction of Inspired Oxygen (FIO2) 04/30/25 04/30/25 04/30/25 07:44 07:57 08:00 Temperature Pulse Rate 79 76 Pulse Rate [ Play Back Operator ] Respiratory 20 Rate Blood Pressure 173/92 181/96 Blood Pressure [Right Arm] O2 Sat by Pulse 100 98 Oximetry Fraction of Inspired Oxygen (FIO2) 04/30/25 04/30/25 04/30/25 08:05 08:35 09:35 Temperature Pulse Rate 78 84 78 Pulse Rate [ Play Back Operator ] Respiratory 17 17 Rate Blood Pressure 177/91 148/82 Blood Pressure [Right Arm] O2 Sat by Pulse 97 Oximetry Fraction of Inspired Oxygen (FIO2) 04/30/25 04/30/25 04/30/25 09:48 09:54 09:57 Temperature Pulse Rate Pulse Rate [ Play Back Operator ] Respiratory Rate Blood Pressure 162/87 140/83 138/74 Blood Pressure [Right Arm] O2 Sat by Pulse Oximetry Fraction of Inspired Oxygen (FIO2) 04/30/25 04/30/25 04/30/25 10:20 10:45 11:20 Temperature Pulse Rate 75 79 75 Pulse Rate [ Play Back Operator ] Respiratory 20 16 15 Rate Blood Pressure 129/80 155/84 151/84 Blood Pressure [Right Arm] O2 Sat by Pulse 97 99 98 Oximetry Fraction of Inspired Oxygen (FIO2) 04/30/25 04/30/25 04/30/25 12:01 12:12 12:22 Temperature Pulse Rate 70 71 72 Pulse Rate [ Play Back Operator ] Respiratory 15 Rate Blood Pressure 181/94 Blood Pressure [Right Arm] O2 Sat by Pulse 94 L Oximetry Fraction of Inspired Oxygen (FIO2) 04/30/25 04/30/25 04/30/25 13:02 13:15 14:50 Temperature Pulse Rate 74 69 68 Pulse Rate [ Play Back Operator ] Respiratory 18 12 19 Rate Blood Pressure 133/90 140/80 155/87 Blood Pressure [Right Arm] O2 Sat by Pulse 98 93 L 98 Oximetry Fraction of Inspired Oxygen (FIO2) 04/30/25 04/30/25 04/30/25 15:40 16:09 16:56 Temperature 98.2 F Pulse Rate 77 Pulse Rate [ 75 Play Back Operator ] Respiratory 17 16 Rate Blood Pressure 172/93 151/118 Blood Pressure 158/82 [Right Arm] O2 Sat by Pulse 98 Oximetry Fraction of Inspired Oxygen (FIO2) 04/30/25 04/30/25 04/30/25 17:10 18:38 19:50 Temperature Pulse Rate 70 73 76 Pulse Rate [ Play Back Operator ] Respiratory 19 17 Rate Blood Pressure 181/102 144/80 Blood Pressure [Right Arm] O2 Sat by Pulse 98 Oximetry Fraction of Inspired Oxygen (FIO2) 04/30/25 04/30/25 04/30/25 20:03 20:25 21:24 Temperature Pulse Rate 81 71 73 Pulse Rate [ Play Back Operator ] Respiratory 14 16 Rate Blood Pressure 169/90 120/75 Blood Pressure [Right Arm] O2 Sat by Pulse 97 99 Oximetry Fraction of Inspired Oxygen (FIO2) 04/30/25 05/01/25 05/01/25 23:21 00:18 02:26 Temperature Pulse Rate 72 63 63 Pulse Rate [ Play Back Operator ] Respiratory 16 16 16 Rate Blood Pressure 163/91 140/75 142/76 Blood Pressure [Right Arm] O2 Sat by Pulse 96 95 94 L Oximetry Fraction of Inspired Oxygen (FIO2) 05/01/25 05/01/25 05/01/25 06:12 08:04 08:14 Temperature Pulse Rate 65 72 66 Pulse Rate [ Play Back Operator ] Respiratory 18 Rate Blood Pressure 153/91 Blood Pressure [Right Arm] O2 Sat by Pulse 97 98 Oximetry Fraction of 28 Inspired Oxygen (FIO2) 05/01/25 05/01/25 05/01/25 08:20 09:33 11:03 Temperature 97.9 F Pulse Rate 66 71 Pulse Rate [ Play Back Operator ] Respiratory 16 16 Rate Blood Pressure 154/87 191/95 144/82 Blood Pressure [Right Arm] O2 Sat by Pulse 100 100 Oximetry Fraction of Inspired Oxygen (FIO2) 05/01/25 05/01/25 05/01/25 13:28 14:00 14:42 Temperature 98.2 F Pulse Rate 78 83 Pulse Rate [ 71 Play Back Operator ] Respiratory 17 17 14 Rate Blood Pressure 193/98 162/113 Blood Pressure 158/85 [Right Arm] O2 Sat by Pulse 97 100 100 Oximetry Fraction of Inspired Oxygen (FIO2) 05/01/25 05/01/25 05/01/25 15:00 16:00 17:59 Temperature Pulse Rate 82 74 81 Pulse Rate [ Play Back Operator ] Respiratory 17 17 Rate Blood Pressure 162/111 130/83 Blood Pressure [Right Arm] O2 Sat by Pulse 100 100 Oximetry Fraction of Inspired Oxygen (FIO2) 05/01/25 05/01/25 05/01/25 18:08 19:00 20:36 Temperature Pulse Rate 84 86 73 Pulse Rate [ Play Back Operator ] Respiratory 17 18 Rate Blood Pressure 190/103 161/80 Blood Pressure [Right Arm] O2 Sat by Pulse 97 100 Oximetry Fraction of Inspired Oxygen (FIO2) Medical Decision Making - Medical Decision Making Was pt. sent in by a medical professional or institution (, PA, BROADCAST MAINTENANCE TECHNICIAN, urgent care, hospital, or alf...) When possible be specific @ -No Did you speak to anyone other than the patient for history (EMS, parent, family, police, friend...)? What history was obtained from this source @ -I spoke with EMS for history Did you review nursing and triage notes (agree or disagree)? Why? @ -I reviewed and agree with nursing and triage notes Were old charts reviewed (outside hosp., previous admission, EMS record, old EKG, old radiological studies, urgent care reports/EKG's, alf records)? Report findings @ -I reviewed discharge summary from April 27 where patient was hospitalized for shortness of breath due to end-stage renal disease Differential Diagnosis (chest pain, altered mental status, abdominal pain women, abdominal pain men, vaginal bleeding, weakness, fever, dyspnea, syncope, headache, dizziness, GI bleed, back pain, seizure, CVA, palpatations, mental health, musculoskeletal)? @ -Differential Dyspnea: Coronary syndrome, arrhythmia, tamponade, asthma, COPD, pulmonary embolism, pneumonia, pneumothorax, pulmonary effusion, anaphylaxis, diabetic ketoacidosis, flailed chest, pulmonary contusion, diaphragmatic rupture, anemia, neuromu scular, this is not meant to be an all-inclusive list. EKG interpreted by me (3pts min.). @ -Yes and demonstrates sinus rhythm with a rate of 82. CA interval 140. QRS 89. QTc of 406. No acute ST segment elevations. Inverted T wave aVL X-rays interpreted by me (1pt min.). @ -Yes which demonstrates pulmonary vascular congestion CT interpreted by me (1pt min.). @ -None done U/S interpreted by me (1pt. min.). @ -None done What testing was considered but not performed or refused? (CT, X-rays, U/S, labs)? Why? @ -None What meds were considered but not given or refused? Why? @ -Lasix considered however patient does not make urine Did you discuss the management of the patient with other professionals (professionals i.e. , PA, BROADCAST MAINTENANCE TECHNICIAN, lab, RT, psych nurse, social work assistant, rubber washer, teacher, chief compliance officer, correctional counselor/case manager)? Give summary @ -Spoke with Dr. Thomson who agreed to admit the patient to the ICU. Also spoke with on-call nephrology who does order dialysis. Spoke with Dr. Glasgow for admission Was smoking cessation discussed for >3mins.? @ -No Was critical care preformed (if so, how long)? @ -35 minutes for management of hyperkalemia and BiPAP respiratory failure Were there social determinants of health that impacted care today? How? (Homelessness, low income, unemployed, alcoholism, drug addiction, transportation, low edu. Level, literacy, decrease access to med. care, retirement, rehab)? @ -No Was there de-escalation of care discussed even if they declined (Discuss DNR or withdrawal of care, Hospice)? DNR status @ -No What co-morbidities impacted this encounter? (DM, HTN, Smoking, COPD, CAD, Cancer, CVA, ARF, Chemo, Hep., AIDS, mental health diagnosis, sleep apnea, mo rbid obesity)? @ -Diabetes mellitus, end-stage renal disease on hemodialysis Was patient admitted / discharged? Hospital course, mention meds given and route, prescriptions, significant lab abnormalities, going to OR and other pertinent info. @ -Upon arrival patient seen and evaluated in trauma 1. She does arrive on CPAP and is placed on BiPAP. Laboratory studies are conducted. Twelve-lead EKG is performed. Patient remains on continuous pulse ox and cardiac monitoring. Laboratory studies are remarkable for hyperkalemia. She is given 1 amp of sodium bicarb, 10 units of IV insulin, 10 g of Lokelma. I also ordered 10 mg of albuterol however patient is started on dialysis prior to this being administered. I had called on-call nephrology who does order dialysis for the patient. I spoke with Dr. Thomson who recommended Cleviprex for her accelerated hypertension. Patient will be admitted to the ICU under [facility]. I spoke with Dr. Glasgow for the admission Undiagnosed new problem with uncertain prognosis? @ -No Drug Therapy requiring intensive monitoring for toxicity (Heparin, Nitro, Insulin, Cardizem)? @ -Cleviprex Were any procedures done? @ -No Diagnosis/symptom? @ -Acute BiPAP dependent respiratory failure, acute pulmonary edema, acute hyperkalemia, end-stage renal disease on hemodialysis, type 1 diabetes Acute, or Chronic, or Acute on Chronic? @ -Acute on chronic Uncomplicated (without systemic symptoms) or Complicated (systemic symptoms)? @ -Complicated Side effects of treatment? @ -No Exacerbation, Progression, or Severe Exacerbation? @ -Yes Poses a threat to life or bodily function? How? (Chest pain, [place], [place], pneumonia, PE, COPD, DKA, ARF, appy, cholecystitis, CVA, Diverticulitis, Homicidal, Suicidal, threat to staff... and all critical care pts) @ -Yes this patient does require BiPAP and is significantly hyperkalemic - Lab Data Result diagrams: 05/01/25 05:50 05/01/25 17:39 Lab Results 04/29/25 04/29/25 04/29/25 Range/Units 09:22 09:22 09:22 WBC 10.97 H (4.50-10.00) 10*3/uL RBC 2.95 L (4.10-5.20) 10*6/uL Hgb 9.5 L (12.0-15.0) g/dL Hct 28.6 L (37.2-46.3) % MCV 96.9 (80.0-97.0) fL MCH 32.2 H (27.0-32.0) pg MCHC 33.2 (32.0-37.0) g/dL Plt Count 248 (140-440) 10*3/uL MPV 10.8 (9.5-12.2) fL Immature Gran % (Auto) 0.3 % Neutrophils % 83.0 % Lymphocytes % 7.4 % Monocytes % 4.3 % Eosinophils % 4.1 % Basophils % 0.9 % Immature Gran # 0.03 (0.00-0.04) 10*3/uL Neutrophils # 9.11 H (1.80-7.70) 10*3/uL Lymphocytes # 0.81 L (0.90-5.00) 10*3/uL Monocytes # 0.47 (0.20-1.00) 10*3/uL Eosinophils # 0.45 H (0.04-0.35) 10*3/uL Basophils # 0.10 (0.00-0.10) 10*3/uL PT 13.2 H (10.0-12.5) sec INR 1.2 H (<1.2) APTT 26.7 (22.0-30.0) sec Sodium 127 L (137-145) mmol/L Potassium 6.7 H* (3.5-5.1) mmol/L Chloride 87 L (98-107) mmol/L Carbon Dioxide 28 (22-30) mmol/L Anion Gap 12 mmol/L BUN 56 H (7-17) mg/dL Creatinine 4.60 H (0.52-1.04) mg/dL Est GFR (CKD-EPI)AfAm 13 (>60 ml/min/1.73 sqM) Est GFR (CKD-EPI)NonAf 12 (>60 ml/min/1.73 sqM) Glucose 410 H (74-99) mg/dL Plasma Lactic Acid Christopher (0.7-2.0) mmol/L Calcium 9.4 (8.4-10.2) mg/dL Total Bilirubin 0.8 (0.2-1.3) mg/dL AST 144 H (14-36) U/L ALT 181 H (4-34) U/L Alkaline Phosphatase 272 H (38-126) U/L Troponin I (0.000-0.034) ng/mL NT-Pro-B Natriuret Pep 56467 pg/mL Total Protein 6.4 (6.3-8.2) g/dL Albumin 4.1 (3.5-5.0) g/dL HCG, Qual Not Detected 04/29/25 04/29/25 Range/Units 09:22 09:22 WBC (4.50-10.00) 10*3/uL RBC (4.10-5.20) 10*6/uL Hgb (12.0-15.0) g/dL Hct (37.2-46.3) % MCV (80.0-97.0) fL MCH (27.0-32.0) pg MCHC (32.0-37.0) g/dL Plt Count (140-440) 10*3/uL MPV (9.5-12.2) fL Immature Gran % (Auto) % Neutrophils % % Lymphocytes % % Monocytes % % Eosinophils % % Basophils % % Immature Gran # (0.00-0.04) 10*3/uL Neutrophils # (1.80-7.70) 10*3/uL Lymphocytes # (0.90-5.00) 10*3/uL Monocytes # (0.20-1.00) 10*3/uL Eosinophils # (0.04-0.35) 10*3/uL Basophils # (0.00-0.10) 10*3/uL PT (10.0-12.5) sec INR (<1.2) APTT (22.0-30.0) sec Sodium (137-145) mmol/L Potassium (3.5-5.1) mmol/L Chloride (98-107) mmol/L Carbon Dioxide (22-30) mmol/L Anion Gap mmol/L BUN (7-17) mg/dL Creatinine (0.52-1.04) mg/dL Est GFR (CKD-EPI)AfAm (>60 ml/min/1.73 sqM) Est GFR (CKD-EPI)NonAf (>60 ml/min/1.73 sqM) Glucose (74-99) mg/dL Plasma Lactic Acid Christopher 1.0 (0.7-2.0) mmol/L Calcium (8.4-10.2) mg/dL Total Bilirubin (0.2-1.3) mg/dL AST (14-36) U/L ALT (4-34) U/L Alkaline Phosphatase (38-126) U/L Troponin I 0.023 (0.000-0.034) ng/mL NT-Pro-B Natriuret Pep pg/mL Total Protein (6.3-8.2) g/dL Albumin (3.5-5.0) g/dL HCG, Qual Disposition Clinical Impression: ESRD (end stage renal disease), BiPAP (biphasic positive airway pressure) dependence, Hypertensive emergency, Acute pulmonary edema, Hyperkalemia, Hyperglycemia Disposition: ADMITTED IP TO THIS [facility] Condition: Serious Is patient prescribed a controlled substance at d/c from ED?: No Time of Disposition: 12:39 Decision to Admit Reason: Admit from EC Decision Date: 04/29/25 Decision Time: 12:39
[2025-04-29 12:32] LABS: NT-Pro-B-Type Natriuretic Pept 52600 pg/mL; Potassium 6.7 mmol/L (3.5-5.1)
[2025-04-29] MEDS ORDERED: NALOXONE 0.4 MG/ML 1 ML VIAL IV PRN (12:47)
[2025-04-29] MEDS: INSULIN REGULAR 100 UNIT/ML VIAL (IV) IV ONE (12:49)
[2025-04-29] MEDS: SODIUM ZIRCONIUM CYCLOSILICATE 10 GM PACKET PO ONE (12:51)
[2025-04-29] MEDS: SODIUM BICARB 8.4% 50 ML SYR (1 MEQ/ML) IV STA (12:51)
[2025-04-29] MEDS: METOCLOPRAMIDE 5 MG/ML 2 ML VIAL IVP STA (13:12)
[2025-04-29] MEDS: ACETAMINOPHEN IV (For NPO) 1,000 MG in EMPTY BAG 1 BAG IVPB STA (13:24)
[2025-04-29] MEDS: CLEVIDIPINE BUTYRATE 25 MG in EMPTY BAG 1 BAG IV SCH (13:27)
--- NOTE | 2025-04-29 13:52 | P.PN ---
Progress Note - Text Progress Note Date: 04/29/25 patient presented to ED with SOB , she is on hemodialysis TTS , BP is elevated to 230s, hyperkalemia , nephrology is consulted for urgent hemodialysis -HD ordered for today, 2.5 hours, 2K , 135 sodium, 35 bicarb, 2 L UF , dialysis nurse [employer] was notified -medical management of hyperkalemia -full consult to follow in am discussed with ED staff Niall Clifford MD
--- NOTE | 2025-04-29 14:45 | P.CNPUL ---
History of Present Illness Consult date: 04/29/25 Requesting physician: Dahiana Chan Reason for consult: other (Hyperkalemia and hypertensive emergency with pulmonary edema) Chief complaint: Shortness of breath History of present illness: This is a 35-year-old female with history of multiple medical problems, familiar to our service, known history of type 1 diabetes, end-stage renal disease on hemodialysis Tuesdays and Saturdays. Patient presented to the ER today with mostly 1 with a history of shortness of breath. EMS arrived on the scene, patient had normal O2 saturation, she was having difficulty breathing, placed on CPAP, she was also noted to be quite hypertensive. Patient states that her last hemodialysis was done yesterday. Brought into the ER, chest x-ray showed evidence of pulmonary edema, her blood pressure was extremely elevated, as high as 240/110. In addition to her elevated blood pressure, patient was no al to be in pulmonary edema, and she was found to have hyperkalemia with potassium as high as 6.7. Patient was started on Lokelma and given treatment as per protocol for hyperkalemia nephrology was notified, the patient is to start on dialysis. In the meantime I recommended Cleviprex to be titrated for blood pressure in the 70-1 80 systolic range. Patient denies any headaches, she has mostly shortness of breath, no chest pain, no fever no chills no hemoptysis. No nausea no vomiting no abdominal pain. The patient herself is not a great historian. Review of Systems CONSTITUTIONAL: Denies any recent significant weight loss or weight gain. EYES: Denies change in vision. EARS, NOSE, MOUTH, THROAT: Denies headaches, denies sore throat. CARDIOVASCULAR: Shortness of breath RESPIRATORY: Some shortness of breath no chest pain orthopnea or PND GASTROINTESTINAL: Denies change in appetite, denies abdominal pain GENITOURINARY: Denies hematuria, denies infections. MUSKULOSKELETAL: Negative INTEGUMENTARY: Denies rash, denies eczema. NEUROLOGICAL: Denies recent memory loss, no recent seizure activity. PSYCHIATRIC: Denies anxiety, denies depression. HEMATOLOGIC/LYMPHATIC: Denies anemia, denies enlarged lymph nodes. 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 Past Anesthesia/Blood Transfusion Reactions: Previous Problems w/ Anesthesia Additional Past Anesthesia/Blood Transfusion Reaction / Comment(s): confusion Past Psychological History: Anxiety, Depression Smoking Status: Current every day smoker Past Alcohol Use History: None Reported Past Drug Use History: Marijuana - Past Family History Father History Unknown: Yes Family Medical History: Unable to Obtain Mother History Unknown: Yes Family Medical History: No Reported History Grandfather History Unknown: Yes Family Medical History: Coronary Artery Disease (CAD) Additional Family Medical History / Comment(s): Diabetes mellitus type 2 Medications and Allergies Home Medications Medication Instructions Recorded Confirmed Type Docusate [Colace] 100 mg PO DAILY@0800 02/05/24 04/29/25 History Lidocaine 4% Patch 1 patch TOPICAL DAILY@0800 02/05/24 04/29/25 History Ipratropium-Albuterol Nebulize 3 ml INHALATION RT-TID PRN each 02/14/24 04/29/25 Rx [Duoneb 0.5 mg-3 mg/3 ml Soln] polyethylene glycoL 3350 [Miralax] 17 gm PO AC-LUNCH #527 gm 02/14/24 04/29/25 Rx Acetaminophen [Tylenol] 650 mg PO Q4H PRN 02/18/24 04/29/25 History Biotene Dry Mouth/Throat 10 ml PO BID PRN 02/18/24 04/29/25 History Melatonin 1 mg PO HS tab 02/25/24 04/29/25 Rx Loratadine [Claritin] 5 mg PO DAILY tab 03/30/24 04/29/25 Rx Aspirin 81 mg PO DAILY@0800 #30 tab 05/18/24 04/29/25 Rx Famotidine [Pepcid] 20 mg PO BID #60 tab 07/11/24 04/29/25 Rx Levothyroxine Sodium [Synthroid] 175 mcg PO DAILY@0600 08/14/24 04/29/25 History Sertraline [Zoloft] 200 mg PO DAILY@0800 08/14/24 04/29/25 History Atorvastatin [Lipitor] 40 mg PO HS #0 11/23/24 04/29/25 Rx Folic Acid/Vit B Complex and C 0.8 mg PO DAILY 12/20/24 04/29/25 History [Davina-Mayte Tablet] traZODone HCL [Desyrel] 50 mg PO HS #20 tab 01/01/25 04/29/25 Rx Isosorbide Mononitrate ER [Imdur] 120 mg PO DAILY #60 tab 01/02/25 04/29/25 Rx NIFEdipine XL [Procardia XL] 60 mg PO BID 30 Days #60 tab 01/02/25 04/29/25 Rx Gabapentin [Neurontin] 100 mg PO BID 30 Days #60 cap 01/03/25 04/29/25 Rx Linagliptin [Tradjenta] 5 mg PO DAILY #30 tab 01/03/25 04/29/25 Rx Insulin Lispro [humaLOG Kwikpen] See Protocol SQ AC-TID 01/22/25 04/29/25 History cloNIDine HCL [Catapres] 0.3 mg PO TID 01/22/25 04/29/25 History carvediloL [Coreg] 50 mg PO BID #120 tablet 02/15/25 04/29/25 Rx Calcium Acetate [PhosLo] 1,334 mg PO TID-W/MEALS 30 Days 02/19/25 04/29/25 Rx #360 tab Ipratropium-Albuterol Nebulize 3 ml INHALATION RT-TID #100 each 02/19/25 04/29/25 Rx [Duoneb 0.5 mg-3 mg/3 ml Soln] ALPRAZolam [Xanax] 0.25 mg PO BID PRN 02/26/25 04/29/25 History Divalproex Sodium [Depakote] 500 mg PO BID@0800,1700 02/26/25 04/29/25 History Lidocaine 5% Cream 1 applic TOPICAL MOTUWETHSA 02/26/25 04/29/25 History Methoxy Peg-Epoetin Beta [Mircera] 100 mcg SQ Q14D 02/26/25 04/29/25 History Insulin Glargine (Lantus) [Lantus 11 unit SQ BID #0 03/18/25 04/29/25 Rx Vial] oxyCODONE HCL/ACETAMINOPHEN 1 tab PO DAILY PRN 04/16/25 04/29/25 History [Percocet 10-325 mg] hydrOXYzine HCL [Atarax] 25 mg PO TID PRN #10 tab 04/24/25 04/29/25 Rx INSULIN LISPRO (HumaLOG) [HumaLOG] 5 unit SQ AC-TID each 04/27/25 04/29/25 Rx Sodium Zirconium Cyclosilicate 10 gm PO DAILY #30 04/27/25 04/29/25 Rx [Lokelma] Allergies Allergy/AdvReac Type Severity Reaction Status Date / Time hydromorphone HCl Allergy Anaphylaxis Verified 04/29/25 14:12 [From Dilaudid] propoxyphene Allergy Rash/Hives Verified 04/29/25 14:12 [From Darvocet-N] tramadol Allergy Anaphylaxis Verified 04/29/25 14:12 ampicillin [From Unasyn] AdvReac Itching Verified 04/29/25 14:12 ibuprofen [From Motrin] AdvReac unable to Verified 04/29/25 14:12 take due to kidney disease sulbactam [From Unasyn] AdvReac Itching Verified 04/29/25 14:12 venom-honey bee AdvReac passes out Verified 04/29/25 14:12 [bee venom (honey bee)] Physical Exam Vitals: Vital Signs Temp Pulse Resp BP Pulse Ox FiO2 04/29/25 14:03 173/94 04/29/25 14:01 81 17 181/91 97 04/29/25 13:59 174/92 04/29/25 13:57 172/89 04/29/25 13:55 162/95 04/29/25 13:53 159/78 04/29/25 13:51 153/76 04/29/25 13:47 197/99 04/29/25 13:45 205/102 04/29/25 13:43 208/110 04/29/25 13:40 208/104 04/29/25 13:39 210/110 04/29/25 13:27 93 17 240/116 97 04/29/25 12:39 40 04/29/25 11:00 89 17 235/139 100 04/29/25 09:58 40 04/29/25 09:57 40 04/29/25 09:13 97.7 F 85 17 200/112 99 Intake and Output 04/28/25 04/29/25 04/29/25 22:59 06:59 14:59 Intake Total 2.667 Balance 2.667 Intake: Intake, IV Titration 2.667 Amount Clevidipine Butyrate 25 2.667 mg In Empty Bag 1 bag @ 1 MG/HR 2 mls/hr IV .Q24H [facility] Rx#:[id number] Other: Weight 68.039 kg GENERAL EXAM: Reveals 35-year-old female in no distress on nasal cannula 2 L nasal cannula with O2 sat of 97% HEAD: Normocephalic. EYES: Normal reaction of pupils, equal size. NOSE: Clear with pink turbinates. THROAT: No erythema or exudates. NECK: No masses, no JVD. CHEST: No chest wall deformity. LUNGS: Fine crackles at the bases no rhonchi no wheezes CVS: S1 and S2 normal with no audible murmur, regular rhythm. ABDOMEN: No hepatosplenomegaly, normal bowel sounds, no guarding or rigidity. SKIN: No rashes CENTRAL NERVOUS SYSTEM: No focal deficits, tone is normal in all 4 extremities. EXTREMITIES: Trace of bipedal edema Results - Laboratory Findings CBC and BMP: 04/29/25 09:22 04/29/25 09:22 PT/INR, D-dimer PT 13.2 sec (10.0-12.5) H 04/29/25 09:22 INR 1.2 (<1.2) H 04/29/25 09:22 Abnormal lab findings: Abnormal Labs 04/29/25 04/29/25 04/29/25 09:22 09:22 09:22 WBC 10.97 H RBC 2.95 L Hgb 9.5 L Hct 28.6 L MCH 32.2 H Neutrophils # 9.11 H Lymphocytes # 0.81 L Eosinophils # 0.45 H PT 13.2 H INR 1.2 H Sodium 127 L Potassium 6.7 H* Chloride 87 L BUN 56 H Creatinine 4.60 H Glucose 410 H AST 144 H ALT 181 H Alkaline Phosphatase 272 H - Diagnostic Findings Chest x-ray: image reviewed (Mild pulmonary edema with pulmonary vascular congestion) Assessment and Plan Assessment: Impression: Hypertensive emergency with significantly elevated blood pressure and pulmonary edema End-stage renal disease requiring hemodialysis Acute hyperkalemia secondary to renal failure Left upper extremity pain near graft site, Doppler revealed patent graft Diabetes mellitus, insulin-dependent, type I Anemia of chronic disease History of CVA/TIA History of optic neuritis Hypothyroidism History of depression History of seizure disorder Recommendation: Agree with the present treatment plan Considering the patient is going on Cleviprex for hypertensive emergency, will admit to the ICU Proceed with hemodialysis Continue hyperkalemia as per protocol for now Resume home meds Will continue to follow Time with Patient: Greater than 30
[2025-04-29] MEDS: ALBUTEROL NEBULIZED 2.5 MG/3 ML INHALATION STA (14:48)
[2025-04-29] MEDS ORDERED: DRY MOUTH SPRAY 59 SPRAY/59 ML SPRAY MUCOUS MEM PRN (20:41)
[2025-04-29] MEDS ORDERED: hydrOXYzine HCL 25 MG TAB PO PRN (20:41)
[2025-04-29] MEDS ORDERED: ACETAMINOPHEN TAB 325 MG TAB PO PRN (20:41)
[2025-04-29] MEDS ORDERED: IPRATROPIUM-ALBUTEROL 3 ML NEB INHALATION PRN (20:41)
[2025-04-29 21:20] LABS: Glucose,Whole Blood 332 mg/dL (70-110)
[2025-04-29] MEDS: GABAPENTIN 100 MG CAP PO SCH (21:35)
[2025-04-29] MEDS: INSULIN GLARGINE (LANTUS) 100 UNIT/ML SYR SQ SCH (21:35)
[2025-04-29] MEDS: FAMOTIDINE 20 MG TAB PO SCH (21:36)
[2025-04-29] MEDS: carvediloL 12.5 MG TAB PO SCH (21:36)
[2025-04-29] MEDS: traZODone HCL 50 MG TAB PO SCH (21:36)
[2025-04-29] MEDS: ATORVASTATIN 40 MG TAB PO SCH (21:36)
[2025-04-29] MEDS: MELATONIN 1 MG TAB PO SCH (21:36)
[2025-04-29] MEDS: ALPRAZolam 0.25 MG TAB PO PRN (21:36)
[2025-04-29] MEDS: INSULIN LISPRO (HumaLOG) 100 UNIT/ML 10 mL VL SQ SCH (21:36)
[2025-04-29] MEDS: cloNIDine HCL 0.1 MG TAB PO SCH (21:37)
[2025-04-29] MEDS: oxyCODONE-APAP 10-325MG 1 EACH TAB PO PRN (22:26)
--- NOTE | 2025-04-30 05:54 | HP ---
HISTORY AND PHYSICAL CHIEF COMPLAINT: Shortness of breath. HISTORY OF PRESENT ILLNESS: This 35-year-old woman with a past medical history of multiple problems including diabetes mellitus, end-stage renal disease, was on Wednesday, , Wednesday dialysis schedule. The patient apparently had some shortness of breath. The patient missed hemodialysis. The patient has also history of some substance abuse issues also per staff and the patient has respiratory difficulties and the patient had features of CHF on admission. Recently admitted for further evaluation and treatment. There is no history of any fever, rigors, chills at this time. The patient is obtunded currently. The patient was recently admitted to the hospital with hypoglycemia also. PAST MEDICAL HISTORY: Diabetes, hypertension, seizure disorder. Rest of the history and chart is also reviewed. HOME MEDICATIONS: Reviewed include trazodone. Doses and rest of medications reviewed. ALLERGIES: Dilaudid. FAMILY HISTORY: Unable to obtain. SOCIAL HISTORY: Smoking. REVIEW OF SYSTEMS: Could not be taken due to the patient is obtunded. PHYSICAL EXAMINATION: VITAL SIGNS: Pulse 93, blood pressure 118/95, respirations 18. HEENT: Conjunctivae normal. NECK: No JVD. RESPIRATIONS: Breath sounds at bases, scattered rhonchi and crackles. ABDOMEN: Soft, nontender. LEGS: No edema. No swelling. NERVOUS SYSTEM: No focal deficit. SKIN: No ulcer, rash, bleeding. JOINTS: No active deforming arthropathy. LABORATORY DATA: Reviewed. Please note the patient has also had hypertensive urgency and the patient is started on Cleviprex drip. ASSESSMENT: 1. Congestive heart failure, acute exacerbation with [id number] diastolic dysfunction. 2. History of [id number] pericardial effusion recently. 3. Hypertensive urgency and hypertensive encephalopathy possibly. 4. Diabetes type 2 brittle. 5. Hypertension. 6. History of seizure disorder. 7. History of gastroparesis. 8. History of headaches. RECOMMENDATIONS AND DISCUSSION: This 35-year-old woman presented with multiple complex medical issues, we will monitor the patient closely, I recommend to continue current management and treatment, otherwise I would resume the home medications. Continue with Cleviprex drip. ICM monitoring. There are no other indications of any infection at this time, but however, I would recommend cultures. Monitor blood sugars closely. Potassium is elevated, hemodialysis. Closely follow with Cardiology and Nephrology and Dr. Thomson. Guarded prognosis because of multiple complex medical issues. Further recommendations to follow. MMODL / IJN: [id number] /
[2025-04-30 06:04] LABS: Basophils # (A) 0.08 10*3/uL (0.00-0.10); Basophils % (A) 0.8 %; Eosinophils # (A) 0.57 10*3/uL (0.04-0.35); HCT 29.7 % (37.2-46.3); HGB 9.8 g/dL (12.0-15.0); Lymphocytes # (A) 1.24 10*3/uL (0.90-5.00); Lymphocytes % (A) 13.1 %; MCH 32.3 pg (27.0-32.0); Monocytes # (A) 0.44 10*3/uL (0.20-1.00); Monocytes % (A) 4.7 %; Neutrophils # (A) 7.07 10*3/uL (1.80-7.70); Neutrophils % (A) 74.9 %; Platelet Count 219 10*3/uL (140-440); RBC 3.03 10*6/uL (4.10-5.20); RDW 16.4 % (11.5-14.5); WBC 9.45 10*3/uL (4.50-10.00)
[2025-04-30 06:20] LABS: African American GFR (CKD) 16 (>60 ml/min/1.73 sqM); Anion Gap 13 mmol/L; Blood Urea Nitrogen 38 mg/dL (7-17); Calcium 9.3 mg/dL (8.4-10.2); Carbon Dioxide 27 mmol/L (22-30); Chloride 92 mmol/L (98-107); Glucose 324 mg/dL (74-99); Non-African American GFR(CKD) 14 (>60 ml/min/1.73 sqM); Potassium 5.2 mmol/L (3.5-5.1); Sodium 132 mmol/L (137-145)
[2025-04-30] MEDS: LEVOTHYROXINE 88 MCG TAB PO SCH (06:20)
[2025-04-30 07:55] LABS: Glucose,Whole Blood 315 mg/dL (70-110)
[2025-04-30] MEDS: IPRATROPIUM-ALBUTEROL 3 ML NEB INHALATION SCH (07:56)
[2025-04-30] MEDS: SERTRALINE 100 MG TAB PO SCH (08:12)
[2025-04-30] MEDS: DIVALPROEX 500 MG TABLET.DR PO SCH (08:12)
[2025-04-30] MEDS: DOCUSATE 100 MG CAP PO SCH (08:12)
[2025-04-30] MEDS: PANTOPRAZOLE 40 MG TABLET PO SCH (08:13)
[2025-04-30] MEDS: ISOSORBIDE MONONITRATE ER 60 MG TAB.ER.24H PO SCH (08:13)
[2025-04-30] MEDS: LINAGLIPTIN 5 MG TABLET PO SCH (08:13)
[2025-04-30] MEDS: LORATADINE 10 MG TAB PO SCH (08:13)
[2025-04-30] MEDS: ASPIRIN 81 MG PO SCH (08:14)
[2025-04-30] MEDS: CALCIUM ACETATE 667 MG TAB PO SCH (08:14)
[2025-04-30] MEDS: LIDOCAINE 4% PATCH TOPICAL SCH (08:15)
[2025-04-30] MEDS: INSULIN LISPRO (HumaLOG) 100 UNIT/ML 10 mL VL SQ SCH (08:16)
[2025-04-30] MEDS: FOLIC ACID-VIT B COMPLEX-VIT C 1 CAP PO SCH (08:31)
[2025-04-30] MEDS: SODIUM ZIRCONIUM CYCLOSILICATE 10 GM PACKET PO SCH (08:42)
--- NOTE | 2025-04-30 08:52 | XR ---
EXAMINATION TYPE: XR chest 1V portable DATE OF EXAM: 04/30/2025 8:42 AM COMPARISON: Chest radiographs from CLINICAL INDICATION: 04/29/2022., 35 years old with history of chf; [facility] TECHNIQUE: XR chest 1V portable Frontal view of the chest. FINDINGS: Lungs/Pleura: There is no evidence of pleural effusion, focal consolidation, or pneumothorax. Pulmonary vascularity: Pulmonary vascular congestion. Heart/mediastinum: Cardiomediastinal silhouette is enlarged. Musculoskeletal: No acute osseous pathology. IMPRESSION: Cardiomegaly and mild pulmonary vascular congestion. Correlate with BNP for congestive heart failure. [facility], , 04/30/2025 8:50 AM
--- NOTE | 2025-04-30 09:35 | P.NPCON ---
History of Present Illness - Reason for Consult end stage renal disease - History of Present Illness Reason for consultation: End-stage renal disease History of present illness: Patient is a 35-year-old female seen in consultation for end-stage renal disease. She was seen and examined in the emergency room. She is maintained on hemodialysis on Wednesday schedule. Patient denies missing any dialysis treatments. Patient came to the hospital yesterday due to shortness of breath. She was initially placed on CPAP. She was noted to be hyperkalemic with potassium level of 6.7. She underwent emergent hemodialysis yesterday with 2 L ultrafiltration. Potassium level also improved. Patient has type 1 diabetes mellitus. Patient is an uric. She states she has been taking Lokelma twice daily at home. She denies excessive fluid intake. Patient's diabetes has been quite uncontrolled with elevated blood glucose. Vital signs are stable. General: No acute distress. On nasal cannula. HEENT: Head exam is unremarkable. LUNGS: No audible rhonchi or wheezes. HEART: Rate and Rhythm are regular. ABDOMEN: Nontender. EXTREMITITES: 1+ edema. 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 Past Anesthesia/Blood Transfusion Reactions: Previous Problems w/ Anesthesia Additional Past Anesthesia/Blood Transfusion Reaction / Comment(s): confusion Past Psychological History: Anxiety, Depression Smoking Status: Current every day smoker Past Alcohol Use History: None Reported Past Drug Use History: Marijuana - Past Family History Father History Unknown: Yes Family Medical History: Unable to Obtain Mother History Unknown: Yes Family Medical History: No Reported History Grandfather History Unknown: Yes Family Medical History: Coronary Artery Disease (CAD) Additional Family Medical History / Comment(s): Diabetes mellitus type 2 Medications and Allergies Home Medications Medication Instructions Recorded Confirmed Type Docusate [Colace] 100 mg PO DAILY@0800 02/05/24 04/29/25 History Lidocaine 4% Patch 1 patch TOPICAL DAILY@0800 02/05/24 04/29/25 History Ipratropium-Albuterol Nebulize 3 ml INHALATION RT-TID PRN each 02/14/24 04/29/25 Rx [Duoneb 0.5 mg-3 mg/3 ml Soln] polyethylene glycoL 3350 [Miralax] 17 gm PO AC-LUNCH #527 gm 02/14/24 04/29/25 Rx Acetaminophen [Tylenol] 650 mg PO Q4H PRN 02/18/24 04/29/25 History Biotene Dry Mouth/Throat 10 ml PO BID PRN 02/18/24 04/29/25 History Melatonin 1 mg PO HS tab 02/25/24 04/29/25 Rx Loratadine [Claritin] 5 mg PO DAILY tab 03/30/24 04/29/25 Rx Aspirin 81 mg PO DAILY@0800 #30 tab 05/18/24 04/29/25 Rx Famotidine [Pepcid] 20 mg PO BID #60 tab 07/11/24 04/29/25 Rx Levothyroxine Sodium [Synthroid] 175 mcg PO DAILY@0600 08/14/24 04/29/25 History Sertraline [Zoloft] 200 mg PO DAILY@0800 08/14/24 04/29/25 History Atorvastatin [Lipitor] 40 mg PO HS #0 11/23/24 04/29/25 Rx Folic Acid/Vit B Complex and C 0.8 mg PO DAILY 12/20/24 04/29/25 History [Davina-Mayte Tablet] traZODone HCL [Desyrel] 50 mg PO HS #20 tab 01/01/25 04/29/25 Rx Isosorbide Mononitrate ER [Imdur] 120 mg PO DAILY #60 tab 01/02/25 04/29/25 Rx NIFEdipine XL [Procardia XL] 60 mg PO BID 30 Days #60 tab 01/02/25 04/29/25 Rx Gabapentin [Neurontin] 100 mg PO BID 30 Days #60 cap 01/03/25 04/29/25 Rx Linagliptin [Tradjenta] 5 mg PO DAILY #30 tab 01/03/25 04/29/25 Rx Insulin Lispro [humaLOG Kwikpen] See Protocol SQ AC-TID 01/22/25 04/29/25 History cloNIDine HCL [Catapres] 0.3 mg PO TID 01/22/25 04/29/25 History carvediloL [Coreg] 50 mg PO BID #120 tablet 02/15/25 04/29/25 Rx Calcium Acetate [PhosLo] 1,334 mg PO TID-W/MEALS 30 Days 02/19/25 04/29/25 Rx #360 tab Ipratropium-Albuterol Nebulize 3 ml INHALATION RT-TID #100 each 02/19/25 04/29/25 Rx [Duoneb 0.5 mg-3 mg/3 ml Soln] ALPRAZolam [Xanax] 0.25 mg PO BID PRN 02/26/25 04/29/25 History Divalproex Sodium [Depakote] 500 mg PO BID@0800,1700 02/26/25 04/29/25 History Lidocaine 5% Cream 1 applic TOPICAL MOTUWETHSA 02/26/25 04/29/25 History Methoxy Peg-Epoetin Beta [Mircera] 100 mcg SQ Q14D 02/26/25 04/29/25 History Insulin Glargine (Lantus) [Lantus 11 unit SQ BID #0 03/18/25 04/29/25 Rx Vial] oxyCODONE HCL/ACETAMINOPHEN 1 tab PO DAILY PRN 04/16/25 04/29/25 History [Percocet 10-325 mg] hydrOXYzine HCL [Atarax] 25 mg PO TID PRN #10 tab 04/24/25 04/29/25 Rx INSULIN LISPRO (HumaLOG) [HumaLOG] 5 unit SQ AC-TID each 04/27/25 04/29/25 Rx Sodium Zirconium Cyclosilicate 10 gm PO DAILY #30 04/27/25 04/29/25 Rx [Lokelma] Allergies Allergy/AdvReac Type Severity Reaction Status Date / Time hydromorphone HCl Allergy Anaphylaxis Verified 04/29/25 14:12 [From Dilaudid] propoxyphene Allergy Rash/Hives Verified 04/29/25 14:12 [From Darvocet-N] tramadol Allergy Anaphylaxis Verified 04/29/25 14:12 ampicillin [From Unasyn] AdvReac Itching Verified 04/29/25 14:12 ibuprofen [From Motrin] AdvReac unable to Verified 04/29/25 14:12 take due to kidney disease sulbactam [From Unasyn] AdvReac Itching Verified 04/29/25 14:12 venom-honey bee AdvReac passes out Verified 04/29/25 14:12 [bee venom (honey bee)] Physical Exam Vitals: Vital Signs Temp Pulse Pulse Resp BP BP Pulse Ox 04/30/25 08:35 84 17 177/91 97 04/30/25 08:05 78 04/30/25 07:57 76 98 04/30/25 07:44 79 20 173/92 100 04/30/25 07:09 73 16 144/98 100 04/30/25 06:45 76 16 168/91 99 04/30/25 06:30 74 16 165/91 100 04/30/25 06:25 75 16 169/98 99 04/30/25 06:10 77 18 172/107 98 04/30/25 06:05 77 18 187/105 99 04/30/25 06:00 80 18 192/106 99 04/30/25 05:55 87 18 231/114 94 L 04/30/25 05:45 70 18 177/120 94 L 04/30/25 05:00 73 16 167/79 94 L 04/30/25 04:30 70 18 160/79 92 L 04/30/25 04:25 71 18 162/79 92 L 04/30/25 04:00 70 16 179/87 93 L 04/30/25 03:53 178/86 04/30/25 02:52 69 18 202/105 98 04/30/25 00:14 75 18 192/99 100 04/29/25 23:18 80 18 180/96 100 04/29/25 22:55 79 178/93 04/29/25 22:41 79 18 149/79 97 04/29/25 22:37 81 136/74 04/29/25 22:25 93 172/83 04/29/25 22:23 93 18 182/95 99 04/29/25 22:10 96 187/95 04/29/25 22:00 91 181/99 04/29/25 21:40 98 18 189/96 98 04/29/25 21:05 89 18 188/90 99 04/29/25 20:25 93 18 185/97 99 04/29/25 20:20 90 179/102 04/29/25 20:10 92 180/89 04/29/25 19:50 90 185/95 04/29/25 19:35 92 18 185/98 04/29/25 19:25 90 18 196/94 99 04/29/25 19:15 92 18 188/98 04/29/25 19:10 90 18 188/104 99 04/29/25 19:00 92 18 181/100 04/29/25 18:50 92 18 191/107 99 04/29/25 18:40 94 191/103 04/29/25 18:35 93 183/89 04/29/25 18:30 98 179/92 04/29/25 18:25 86 182/100 04/29/25 18:20 88 174/96 04/29/25 18:15 84 18 185/93 99 04/29/25 18:07 99 F 90 18 194/92 04/29/25 17:37 85 18 194/92 97 04/29/25 16:54 87 18 196/100 97 04/29/25 16:22 85 18 183/96 98 04/29/25 15:39 85 18 197/100 98 04/29/25 15:09 82 18 196/97 97 04/29/25 14:03 173/94 04/29/25 14:01 81 17 181/91 97 04/29/25 13:59 174/92 04/29/25 13:57 172/89 04/29/25 13:55 162/95 04/29/25 13:53 159/78 04/29/25 13:51 153/76 04/29/25 13:47 197/99 04/29/25 13:45 205/102 04/29/25 13:43 208/110 04/29/25 13:40 208/104 04/29/25 13:39 210/110 04/29/25 13:27 93 17 240/116 97 04/29/25 12:39 04/29/25 11:00 89 17 235/139 100 04/29/25 09:58 04/29/25 09:57 FiO2 04/30/25 08:35 04/30/25 08:05 04/30/25 07:57 04/30/25 07:44 04/30/25 07:09 04/30/25 06:45 04/30/25 06:30 04/30/25 06:25 04/30/25 06:10 04/30/25 06:05 04/30/25 06:00 04/30/25 05:55 04/30/25 05:45 04/30/25 05:00 04/30/25 04:30 04/30/25 04:25 04/30/25 04:00 04/30/25 03:53 04/30/25 02:52 04/30/25 00:14 04/29/25 23:18 04/29/25 22:55 04/29/25 22:41 04/29/25 22:37 04/29/25 22:25 04/29/25 22:23 04/29/25 22:10 04/29/25 22:00 04/29/25 21:40 04/29/25 21:05 04/29/25 20:25 04/29/25 20:20 04/29/25 20:10 04/29/25 19:50 04/29/25 19:35 04/29/25 19:25 04/29/25 19:15 04/29/25 19:10 04/29/25 19:00 04/29/25 18:50 04/29/25 18:40 04/29/25 18:35 04/29/25 18:30 04/29/25 18:25 04/29/25 18:20 04/29/25 18:15 04/29/25 18:07 04/29/25 17:37 04/29/25 16:54 04/29/25 16:22 04/29/25 15:39 04/29/25 15:09 04/29/25 14:03 04/29/25 14:01 04/29/25 13:59 04/29/25 13:57 04/29/25 13:55 04/29/25 13:53 04/29/25 13:51 04/29/25 13:47 04/29/25 13:45 04/29/25 13:43 04/29/25 13:40 04/29/25 13:39 04/29/25 13:27 04/29/25 12:39 40 04/29/25 11:00 04/29/25 09:58 40 04/29/25 09:57 40 Intake and Output 04/29/25 04/30/25 04/30/25 22:59 06:59 14:59 Intake Total 561.133 18.466 36.334 Output Total 4500 Balance -3938.867 18.466 36.334 Intake: Intake, IV Titration 61.133 18.466 36.334 Amount Clevidipine Butyrate 25 61.133 18.466 36.334 mg In Empty Bag 1 bag @ 1 MG/HR 2 mls/hr IV .Q24H [facility] Rx#:[id number] Hemodialysis 500 Output: Hemodialysis 2500 Hemodialysis Net Amount 1999 Results - Lab Results Most recent lab results Calcium 9.3 mg/dL (8.4-10.2) 04/30/25 05:43 04/30/25 05:43 04/30/25 05:43 Assessment and Plan Plan: Assessment: 1. End-stage renal disease maintained on hemodialysis on Wednesday schedule. 2. Hyperkalemia secondary to chronic kidney disease and hyperglycemia. I mproved postdialysis. 3. Volume overload. 4. Hypertensive emergency. Improved. 5. Chronic kidney disease mineral bone disease maintained on PhosLo. 6. Diabetes mellitus. 7. History of pericardial effusion. Plan: Hemodialysis today and again tomorrow. Challenge ultrafiltration. Goal UF 4 to 5 L. Low-salt diet and fluid restriction. Maintain Lokelma. Tight blood glucose control. Avoid hydralazine due to history of pericardial effusion. Blood pressure well-controlled when euvolemic. Follow-up echocardiogram. Thank you for the consultation. I will continue to follow the patient with you during her hospital stay.
--- NOTE | 2025-04-30 11:26 | CONS ---
CONSULTATION HISTORY OF PRESENT ILLNESS: Marita is a 35-year-old lady with history of end-stage renal disease on hemodialysis, who presented to hospital with shortness of breath, hypoxia and had severely elevated blood pressures at 240/110. A chest x-ray in the ER revealed pulmonary edema. She had been dialyzed and since that time, her symptoms have improved. She does not make any urine. Her potassium level was elevated at 6.7. She was started on Cleviprex with much better control of blood pressure this morning. We have been consulted because of the pulmonary edema and severe uncontrolled hypertension. The patient denies any chest pain. Shortness of breath had improved. She has had multiple prior admissions with very similar issues. She had an echocardiogram in December of 2024 that revealed normal LV systolic function, [id number] amount of pericardial effusion. PAST MEDICAL HISTORY: Significant for severe uncontrolled hypertension, hypothyroidism, end-stage renal disease. CURRENT MEDICATIONS: Include; 1. Desyrel. 2. Catapres 0.3 t.i.d. 3. Coreg 50 b.i.d. 4. Zoloft. 5. Procardia XL 60 b.i.d. 6. Trajenta. 7. Lidocaine patch. 8. Synthroid. 9. Imdur. 10.Duoneb. 11.Insulin. 12.Neurontin. 13.Lipitor. 14.Tylenol. 15.Nebulizers. ALLERGIES: As charted, I reviewed them. She has multiple drug allergies. FAMILY HISTORY: Negative for premature coronary artery disease. SOCIAL HISTORY: Significant for smoking. There is no history of EtOH abuse or drug abuse. REVIEW OF SYSTEMS: review of systems has been performed, pertinent are as documented. PHYSICAL EXAMINATION: VITAL SIGNS: Heart rate is 84 beats per minute, blood pressure is 170/91, respiratory rate 18, O2 saturation is 97% on 3 L. NECK: There is no jugular venous distention. Carotid upstroke is normal. There is no bruit. CHEST: Reveals good air entry bilaterally. I do not hear any crackles or rhonchi. HEART: Reveals first and second heart sounds. An S4 is heard. ABDOMEN: Soft. EXTREMITIES: Did not reveal any edema. Peripheral pulses are felt. LABORATORY DATA: Labs show that the hemoglobin is 9.8, potassium is 5.2, BUN is 38, creatinine is 4. BNP is elevated at 52,600. ASSESSMENT: 1. Hypertensive urgency. 2. Acute pulmonary edema. 3. End-stage renal disease, on hemodialysis. 4. History of pericardial effusion. PLAN: The patient is on Cleviprex, which she is going to continue and we are going to resume her home medications and hopefully gradually taper and stop the Cleviprex. I will obtain a limited 2D echo to follow the pericardial effusion that was noted on the prior testing. MMODL / IJN: [id number] /
[2025-04-30 11:36] LABS: Glucose,Whole Blood 234 mg/dL (70-110)
[2025-04-30] MEDS: LIDOCAINE 4% CREAM 5 GM TUBE TOPICAL SCH (12:04)
[2025-04-30] MEDS: oxyCODONE-APAP 10-325MG 1 EACH TAB PO PRN (12:10)
[2025-04-30] MEDS: polyethylene glycoL 3350 17 GM POWD.PACK PO SCH (12:10)
[2025-04-30 12:13] LABS: Amphetamine Screen,Urine Not Detected (NotDetected); Barbiturate Screen,Urine Not Detected (NotDetected); Benzodiazepines Screen,Urine Not Detected (NotDetected); Cocaine Screen,Urine Not Detected (NotDetected); Methadone Screen, Urine Not Detected (NotDetected); Opiate Screen,Urine Detected (NotDetected); Oxycodone Screen, Urine Detected (NotDetected); Phencyclidine Screen,Urine Not Detected (NotDetected); Tricyclic Antidepressant,Urine Not Detected (NotDetected); Urn Cannabinoid Scrn Detected (NotDetected)
[2025-04-30 12:42] LABS: Appearance,Urine Cloudy (Clear); Bilirubin,Urine Negative (Negative); Blood,Urine Negative (Negative); Color,Urine Colorless; Glucose,Urine (UA) 4+ (Negative); Ketones,Urine Trace (Negative); Leukocyte Esterase,Urine Negative (Negative); Nitrite,Urine Negative (Negative); Protein,Urine 3+ (Negative); RBC,Urine 1 /hpf (0-5); Specific Gravity,Urine 1.009 (1.001-1.035); Squamous Epithelial Cell,Urine 12 /hpf (0-4); Urobilinogen,Urine <2.0 mg/dL (<2.0); WBC,Urine 2 /hpf (0-5)
--- NOTE | 2025-04-30 15:54 | CA ---
Transthoracic Echo Report Name: Marita Perrin Age: 35 Gender: F : 1990 Exam Date: 04/30/2025 13:11 Exam Location: [facility] Ht (in): 63 Wt (lb): 150 Ordering Physician: Ilan Castillo MD ([id number]) Attending/Referring Phys: Pecan Sheller Estela Desai RDCS Procedure CPT: Indications: pericardial effusion Cardiac Hx: Limited for pericardial effusion. Technical Quality: Good Contrast 1: Total Dose (mL): Contrast 2: Total Dose (mL): MEASUREMENTS (Male / Female) Normal Values 2D ECHO LV Diastolic Diameter PLAX 5.1 cm 4.2 - 5.9 / 3.9 - 5.3 cm LV Systolic Diameter PLAX 3.5 cm IVS Diastolic Thickness 0.9 cm 0.6 - 1.0 / 0.6 - 0.9 cm LVPW Diastolic Thickness 1.0 cm 0.6 - 1.0 / 0.6 - 0.9 cm LV Relative Wall Thickness 0.4 LV Diastolic Volume MOD BP 135.8 cm??? 67 - 155 / 56 - 104 cm??? LV Systolic Volume MOD BP 53.2 cm??? 22 - 58 / 19 - 49 cm??? LV Ejection Fraction MOD BP 60.8 % >= 55 % LV Cardiac Index MOD BP 3246.6 cm???/min???m??? LV Diastolic Volume MOD 4C 137.9 cm??? LV Systolic Volume MOD 4C 47.6 cm??? LV Ejection Fraction MOD 4C 65.5 % LV Cardiac Index MOD 4C 3549.8 cm???/min???m??? LV Diastolic Length 4C 9.1 cm LV Systolic Length 4C 7.4 cm LV Diastolic Volume MOD 2C 133.7 cm??? LV Systolic Volume MOD 2C 57.4 cm??? LV Ejection Fraction MOD 2C 57.1 % LV Cardiac Index MOD 2C 3001.1 cm???/min???m??? LV Diastolic Length 2C 9.1 cm LV Systolic Length 2C 7.1 cm DOPPLER TR Peak Velocity 267.3 cm/s TR Peak Gradient 28.6 mmHg Right Atrial Pressure 15.0 mmHg Pulmonary Artery Systolic Pressu 43.6 mmHg Right Ventricular Systolic Press 43.6 mmHg FINDINGS Left Ventricle Left ventricular ejection fraction is estimated at 60 %. Severely increased left ventricular diastolic volume. Mildly increased left ventricular systolic volume. Left ventricular wall thickness normal. No obvious regional wall motion abnormalities. Right Ventricle Moderate right ventricular dilatation. Mild pulmonary hypertension. Right Atrium Left Atrium Mitral Valve Aortic Valve Tricuspid Valve Structurally normal tricuspid valve. No tricuspid stenosis. Moderate tricuspid regurgitation. Pulmonic Valve Pericardium Small pericardial effusion. Aorta CONCLUSIONS Left ventricular ejection fraction 60% RVSP 44 Moderate tricuspid regurgitation Small pericardial effusion without tamponade physiology Previewed by: Dr. Azeem Avila DO (Electronically Signed) Final Date: 30 April 2025 15:53
--- NOTE | 2025-04-30 15:56 | P.PN ---
Subjective Progress Note Date: 04/30/25 Principal diagnosis: Respiratory failure. This is a 35-year-old female with history of multiple medical problems, familiar to our service, known history of type 1 diabetes, end-stage renal disease on hemodialysis Tuesdays and Saturdays. Patient presented to the ER tod with mostly 1 with a history of shortness of breath. EMS arrived on the scene, patient had normal O2 saturation, she was having difficulty breathing, placed on CPAP, she was also noted to be quite hypertensive. Patient states that her last hemodialysis was done yesterday. Brought into the ER, chest x-ray showed evidence of pulmonary edema, her blood pressure was extremely elevated, as high as 240/110. In addition to her elevated blood pressure, patient was noted to be in pulmonary edema, and she was found to have hyperkalemia with potassium as high as 6.7. Patient was started on Lokelma and given treatment as per protocol for hyperkalemia nephrology was notified, the patient is to start on dialysis. In the meantime I recommended Cleviprex to be titrated for blood pressure in the 70-1 80 systolic range. Patient denies any headaches, she has mostly shortness of breath, no chest pain, no fever no chills no hemoptysis. No nausea no vomiting no abdominal pain. The patient herself is not a great historian. Progress note dated April 30, 2025. The patient was seen yesterday in consultation. She came in with shortness of breath. Patient needed emergent hemodialysis, which did take place, April 29. She seen today, in the emergency department, room 10. She is currently on 2 L nasal cannula. She is not receiving any IV fluids. She did use BiPAP, with settings of 10/5, and 40%. The patient was initially scheduled to go to the intensive care unit, but she can be downgraded. She is very stable. He is sitting up in bed, in no distress. Current laboratory data includes a white count 9.5, hemoglobin 9.8, hematocrit 29.7, and a platelet count of 219,000. Sodium 132, potassium 5.2, chloride 92, CO2 27, anion gap 13, BUN 38, creatinine 4. Glucose is 234. Drug screen was positive for opiates, oxycodone, and marijuana. Chest x-ray showed cardiomegaly, with mild pulmonary vascular congestion. Objective - Vital Signs Vital signs: Vital Signs Temp 99 F 04/29/25 18:07 Pulse 68 04/30/25 14:50 Resp 19 04/30/25 14:50 BP 155/87 04/30/25 14:50 Pulse Ox 98 04/30/25 14:50 FiO2 40 04/29/25 12:39 Intake & Output 04/29/25 04/30/25 04/30/25 18:59 06:59 18:59 Intake Total 522.700 59.566 65.668 Output Total 4500 Balance -3977.300 59.566 65.668 Weight 68.039 kg Intake: Intake, IV Titration 22.700 59.566 65.668 Amount Clevidipine Butyrate 25 22.700 59.566 65.668 mg In Empty Bag 1 bag @ 1 MG/HR 2 mls/hr IV .Q24H [facility] Rx#:[id number] Hemodialysis 500 Output: Hemodialysis 2500 Hemodialysis Net Amount 1999 - Exam No acute distress, oriented 3. HEENT examination is grossly unremarkable. Mucous membranes are moist. No oral lesions. Neck supple. Full range of motion. No adenopathy thyromegaly or neck vein distention. Cardiovascular examination reveals regular rhythm rate. S1-S2 normal. No S3 or S4. No discernible murmur noted. Lungs reveal fine bibasilar crackles. No wheezes. No rhonchi. Breath sounds are equal bilaterally. Abdomen soft bowel sounds are heard. No masses or tenderness. Extremities are intact. Trace edema. No cyanosis or clubbing. Skin is without rash or lesion. Neurologic examination is brief but nonfocal. - Labs CBC & Chem 7: 04/30/25 05:43 04/30/25 05:43 Labs: Abnormal Lab Results - Last 24 Hours (Table) 04/29/25 04/30/25 04/30/25 Range/Units 21:19 05:43 05:43 RBC 3.03 L (4.10-5.20) 10*6/uL Hgb 9.8 L (12.0-15.0) g/dL Hct 29.7 L (37.2-46.3) % MCV 98.0 H (80.0-97.0) fL MCH 32.3 H (27.0-32.0) pg Immature Gran # 0.05 H (0.00-0.04) 10*3/uL Eosinophils # 0.57 H (0.04-0.35) 10*3/uL Sodium 132 L (137-145) mmol/L Potassium 5.2 H (3.5-5.1) mmol/L Chloride 92 L (98-107) mmol/L BUN 38 H (7-17) mg/dL Creatinine 4.00 H (0.52-1.04) mg/dL Glucose 324 H (74-99) mg/dL POC Glucose (mg/dL) 332 H (70-110) mg/dL Urine Appearance (Clear) Urine Protein (Negative) Urine Glucose (UA) (Negative) Urine Ketones (Negative) Ur Squamous Epith Cells (0-4) /hpf Urine Opiates Screen (NotDetected) Ur Oxycodone Screen (NotDetected) U Marijuana (THC) Screen (NotDetected) 04/30/25 04/30/25 04/30/25 Range/Units 07:54 11:35 12:00 RBC (4.10-5.20) 10*6/uL Hgb (12.0-15.0) g/dL Hct (37.2-46.3) % MCV (80.0-97.0) fL MCH (27.0-32.0) pg Immature Gran # (0.00-0.04) 10*3/uL Eosinophils # (0.04-0.35) 10*3/uL Sodium (137-145) mmol/L Potassium (3.5-5.1) mmol/L Chloride (98-107) mmol/L BUN (7-17) mg/dL Creatinine (0.52-1.04) mg/dL Glucose (74-99) mg/dL POC Glucose (mg/dL) 315 H 234 H (70-110) mg/dL Urine Appearance Cloudy H (Clear) Urine Protein 3+ H (Negative) Urine Glucose (UA) 4+ H (Negative) Urine Ketones Trace H (Negative) Ur Squamous Epith Cells 12 H (0-4) /hpf Urine Opiates Screen Detected H (NotDetected) Ur Oxycodone Screen Detected H (NotDetected) U Marijuana (THC) Screen Detected H (NotDetected) Assessment and Plan Assessment: Hypertensive emergency with significantly elevated blood pressure and pulmonary edema. End-stage renal disease requiring hemodialysis. Acute hyperkalemia secondary to renal failure. Left upper extremity pain near graft site, Doppler revealed patent graft. Diabetes mellitus, insulin-dependent, type I. Anemia of chronic disease. History of CVA/TIA. History of optic neuritis. Hypothyroidism. History of depression. History of seizure disorder. Plan: Plan dated April 30, 2025. The patient is seen today, down in the emergency department, room 10. She sitting up in bed. The patient is on 2 L. No respiratory distress. No conversational dyspnea. No use of accessory muscles. She had emergent hemodialysis on April 29. She did use BiPAP last night, with settings of 10/5, 40%. The patient is currently on 2 L. All labs, x-rays, and medications are reviewed. The patient no longer is a candidate for the intensive care unit, and can be downgraded. We will continue to follow make recommendations were appropriate. Prognosis is guarded. Dictation was produced using [employer] software. Please excuse any grammatical, word or spelling errors. Time with Patient: Less than 30
[2025-04-30 16:53] LABS: Glucose,Whole Blood 164 mg/dL (70-110)
[2025-04-30] MEDS: ONDANSETRON 4 MG/2 ML VIAL IVP PRN (17:56)
[2025-04-30 20:28] LABS: Glucose,Whole Blood 248 mg/dL (70-110)
[2025-04-30] MEDS: INSULIN GLARGINE (LANTUS) 100 UNIT/ML SYR SQ SCH (20:57)
--- NOTE | 2025-05-01 02:20 | PN ---
PROGRESS NOTE DATE OF SERVICE: 04/30/2025 SUBJECTIVE: This 35-year-old woman was admitted with CHF acute exacerbation, also change in mental status, possibly medication induced. The patient had hemodialysis. The patient apparently did not miss any hemodialysis according to her and the chest x-ray showed some minimal improvement. The patient is also hypertensive, still on Cleviprex drip. PAST MEDICAL HISTORY: Reviewed. REVIEW OF SYSTEMS: A 14-point review of systems is negative except as mentioned earlier. CURRENT MEDICATIONS: Reviewed. PHYSICAL EXAMINATION: VITAL SIGNS: Pulse is 84, blood pressure 177/91, and respirations 17. HEENT: Conjunctivae normal. NECK: No JVD. CARDIOVASCULAR: S1, S2. RESPIRATIONS: Breath sounds diminished at the bases. A few scattered rhonchi and crackles. ABDOMEN: Soft. NERVOUS SYSTEM: Nonfocal. LABORATORY DATA: Reviewed. ASSESSMENT: 1. Congestive heart failure, acute exacerbation acute on chronic diastolic dysfunction. 2. History of iynac-yp-vsharaiy pericardial effusion recently. 3. Hypertensive urgency and hypertensive encephalopathy, possibly. 4. Diabetes mellitus, type 2, brittle. 5. Hypertension. 6. Seizure disorder. 7. History of gastroparesis. 8. History of headaches. RECOMMENDATIONS AND DISCUSSION: Recommend to continue current medications and continue symptomatic treatment. Otherwise, titrate off the Cleviprex drip. Adjust the medications. Monitor the blood sugars closely. The patient is on Humalog, on Lantus 11 units b.i.d. I would recommend to increase the dose of Lantus and continue to monitor. Guarded prognosis. Further recommendations to follow. MMODL / IJN: [id number] /
[2025-05-01 06:24] LABS: Basophils % (A) 1.4 %; Eosinophils # (A) 1.06 10*3/uL (0.04-0.35); Eosinophils % (A) 14.8 %; HCT 31.2 % (37.2-46.3); HGB 10.2 g/dL (12.0-15.0); Lymphocytes # (A) 0.99 10*3/uL (0.90-5.00); Lymphocytes % (A) 13.9 %; MCH 32.5 pg (27.0-32.0); MCHC 32.7 g/dL (32.0-37.0); MCV 99.4 fL (80.0-97.0); Mean Platelet Volume 10.3 fL (9.5-12.2); Monocytes # (A) 0.43 10*3/uL (0.20-1.00); Neutrophils # (A) 4.53 10*3/uL (1.80-7.70); Neutrophils % (A) 63.5 %; Platelet Count 258 10*3/uL (140-440); RBC 3.14 10*6/uL (4.10-5.20); RDW 16.8 % (11.5-14.5); WBC 7.14 10*3/uL (4.50-10.00)
[2025-05-01 06:35] LABS: ALT 114 U/L (4-34); AST 37 U/L (14-36); African American GFR (CKD) 17 (>60 ml/min/1.73 sqM); Albumin 4.1 g/dL (3.5-5.0); Alkaline Phosphatase 198 U/L (38-126); Anion Gap 11 mmol/L; Blood Urea Nitrogen 30 mg/dL (7-17); Calcium 9.4 mg/dL (8.4-10.2); Carbon Dioxide 29 mmol/L (22-30); Chloride 92 mmol/L (98-107); Glucose 328 mg/dL (74-99); Non-African American GFR(CKD) 15 (>60 ml/min/1.73 sqM); Potassium 5.6 mmol/L (3.5-5.1); Sodium 132 mmol/L (137-145); Total Protein 6.5 g/dL (6.3-8.2)
[2025-05-01 06:36] LABS: Total Bilirubin 0.6 mg/dL (0.2-1.3)
[2025-05-01 08:20] LABS: Glucose,Whole Blood 337 mg/dL (70-110)
--- NOTE | 2025-05-01 09:41 | P.PN ---
Subjective Progress Note Date: 05/01/25 This is a 35-year-old female patient of Dr. Avila with past medical history of end-stage renal disease on hemodialysis. Patient presented to the hospital due to shortness of breath, hypoxia, severely elevated blood pressure at 240/110. Chest x-ray revealed pulmonary edema. Patient underwent dialysis and since that time her symptoms are improved. Patient does not make urine. Her initial potassium was 6.7. Patient was started on Cleviprex which improved her blood pressure control. Cardiology was consulted due to pulmonary edema and severe uncontrolled hypertension. Patient denies chest pain and shortness of breath is improved. Echocardiogram in December 2024 revealed normal LV systolic function, small to moderate amount of pericardial effusion. 05/01/2025 Patient is seen today in the emergency center waiting for a bed in the ICU. Blood pressure 153/91, heart rate 65, pulse ox 97% on 2 L nasal cannula. Patient has been afebrile. Echocardiogram reveals EF of 60%, RVSP 44, moderate TR, small pericardial effusion without tamponade. Results of the echocardiogram reviewed with the patient. Repeat blood work reveals hemoglobin 10.2, sodium 132, potassium 5.6, BUN 30 creatinine 3.75. AST 37, ALT 114, alkaline phosphatase 198. Patient continues to have improvement of her shortness of breath. Physical examination: Gen: This is a 35-year-old female in no acute distress VS: reviewed HEENT: Head is atraumatic, normocephalic. Pupils equal, round. Sclerae is anicteric. NECK: Supple. No JVD. Carotid upstroke is normal. No bruit. LUNGS: No crackles or rhonchi. No intercostal retractions. HEART: Reveals 1st and 2nd heart sounds. An S4 is heard. ABDOMEN: Soft No tenderness. EXTREMITIES: No pedal edema. Dorsalis pedis palpable bilaterally. NEUROLOGICAL: Patient is awake, alert and oriented x3. Assessment: Hypertensive urgency Acute pulmonary edema End-stage renal disease on hemodialysis History of pericardial effusion, stable Elevated liver function test Chronic diastolic heart failure Hypertension Hyperlipidemia History of sinus tachycardia Diabetes mellitus type 1 since age 6 Plan: Continue patient's home cardiac medications: Aspirin, Coreg 50 mg twice daily, clonidine 0.3 mg 3 times daily Resume Procardia XL 90 mg every 12 hours Hold atorvastatin due to elevated liver function test Cleviprex may be gradually tapered and discontinued Further recommendations to follow based upon clinical course Nurse practitioner note has been reviewed, I agree with documented findings and plan of care. Patient was seen and examined. Objective - Vital Signs Vital signs: Vital Signs Temp 98.2 F 04/30/25 16:56 Pulse 65 05/01/25 06:12 Resp 18 05/01/25 06:12 BP 153/91 05/01/25 06:12 Pulse Ox 97 05/01/25 06:12 FiO2 40 04/29/25 12:39 Intake & Output 04/30/25 05/01/25 05/01/25 18:59 06:59 18:59 Intake Total 479.601 39.999 Output Total 8600 Balance -8120.399 39.999 Intake: Intake, IV Titration 79.601 39.999 Amount Clevidipine Butyrate 25 79.601 39.999 mg In Empty Bag 1 bag @ 1 MG/HR 2 mls/hr IV .Q24H [facility] Rx#:[id number] Hemodialysis 400 Output: Hemodialysis 4500 Hemodialysis Net Amount 4100 - Labs CBC & Chem 7: 05/01/25 05:50 05/01/25 05:50 Labs: Abnormal Lab Results - Last 24 Hours (Table) 04/30/25 04/30/25 04/30/25 Range/Units 07:54 11:35 12:00 RBC (4.10-5.20) 10*6/uL Hgb (12.0-15.0) g/dL Hct (37.2-46.3) % MCV (80.0-97.0) fL MCH (27.0-32.0) pg Eosinophils # (0.04-0.35) 10*3/uL Sodium (137-145) mmol/L Potassium (3.5-5.1) mmol/L Chloride (98-107) mmol/L BUN (7-17) mg/dL Creatinine (0.52-1.04) mg/dL Glucose (74-99) mg/dL POC Glucose (mg/dL) 315 H 234 H (70-110) mg/dL AST (14-36) U/L ALT (4-34) U/L Alkaline Phosphatase (38-126) U/L Urine Appearance Cloudy H (Clear) Urine Protein 3+ H (Negative) Urine Glucose (UA) 4+ H (Negative) Urine Ketones Trace H (Negative) Ur Squamous Epith Cells 12 H (0-4) /hpf Urine Opiates Screen Detected H (NotDetected) Ur Oxycodone Screen Detected H (NotDetected) U Marijuana (THC) Screen Detected H (NotDetected) 04/30/25 04/30/25 05/01/25 Range/Units 16:50 20:27 05:50 RBC 3.14 L (4.10-5.20) 10*6/uL Hgb 10.2 L (12.0-15.0) g/dL Hct 31.2 L (37.2-46.3) % MCV 99.4 H (80.0-97.0) fL MCH 32.5 H (27.0-32.0) pg Eosinophils # 1.06 H (0.04-0.35) 10*3/uL Sodium (137-145) mmol/L Potassium (3.5-5.1) mmol/L Chloride (98-107) mmol/L BUN (7-17) mg/dL Creatinine (0.52-1.04) mg/dL Glucose (74-99) mg/dL POC Glucose (mg/dL) 164 H 248 H (70-110) mg/dL AST (14-36) U/L ALT (4-34) U/L Alkaline Phosphatase (38-126) U/L Urine Appearance (Clear) Urine Protein (Negative) Urine Glucose (UA) (Negative) Urine Ketones (Negative) Ur Squamous Epith Cells (0-4) /hpf Urine Opiates Screen (NotDetected) Ur Oxycodone Screen (NotDetected) U Marijuana (THC) Screen (NotDetected) 05/01/25 Range/Units 05:50 RBC (4.10-5.20) 10*6/uL Hgb (12.0-15.0) g/dL Hct (37.2-46.3) % MCV (80.0-97.0) fL MCH (27.0-32.0) pg Eosinophils # (0.04-0.35) 10*3/uL Sodium 132 L (137-145) mmol/L Potassium 5.6 H (3.5-5.1) mmol/L Chloride 92 L (98-107) mmol/L BUN 30 H (7-17) mg/dL Creatinine 3.75 H (0.52-1.04) mg/dL Glucose 328 H (74-99) mg/dL POC Glucose (mg/dL) (70-110) mg/dL AST 37 H (14-36) U/L ALT 114 H (4-34) U/L Alkaline Phosphatase 198 H (38-126) U/L Urine Appearance (Clear) Urine Protein (Negative) Urine Glucose (UA) (Negative) Urine Ketones (Negative) Ur Squamous Epith Cells (0-4) /hpf Urine Opiates Screen (NotDetected) Ur Oxycodone Screen (NotDetected) U Marijuana (THC) Screen (NotDetected)
[2025-05-01] MEDS ORDERED: hydrALAZINE HCL 20 MG/ML 1 ML VIAL IVP PRN (11:55)
--- NOTE | 2025-05-01 12:57 | P.PN ---
Subjective Progress Note Date: 05/01/25 Principal diagnosis: Respiratory failure. This is a 35-year-old female with history of multiple medical problems, familiar to our service, known history of type 1 diabetes, end-stage renal disease on hemodialysis Tuesdays and Saturdays. Patient presented to the ER tod with mostly 1 with a history of shortness of breath. EMS arrived on the scene, patient had normal O2 saturation, she was having difficulty breathing, placed on CPAP, she was also noted to be quite hypertensive. Patient states that her last hemodialysis was done yesterday. Brought into the ER, chest x-ray showed evidence of pulmonary edema, her blood pressure was extremely elevated, as high as 240/110. In addition to her elevated blood pressure, patient was noted to be in pulmonary edema, and she was found to have hyperkalemia with potassium as high as 6.7. Patient was started on Lokelma and given treatment as per protocol for hyperkalemia nephrology was notified, the patient is to start on dialysis. In the meantime I recommended Cleviprex to be titrated for blood pressure in the 70-1 80 systolic range. Patient denies any headaches, she has mostly shortness of breath, no chest pain, no fever no chills no hemoptysis. No nausea no vomiting no abdominal pain. The patient herself is not a great historian. Progress note dated April 30, 2025. The patient was seen yesterday in consultation. She came in with shortness of breath. Patient needed emergent hemodialysis, which did take place, April 29. She seen today, in the emergency department, room 10. She is currently on 2 L nasal cannula. She is not receiving any IV fluids. She did use BiPAP, with settings of 10/5, and 40%. The patient was initially scheduled to go to the intensive care unit, but she can be downgraded. She is very stable. He is sitting up in bed, in no distress. Current laboratory data includes a white count 9.5, hemoglobin 9.8, hematocrit 29.7, and a platelet count of 219,000. Sodium 132, potassium 5.2, chloride 92, CO2 27, anion gap 13, BUN 38, creatinine 4. Glucose is 234. Drug screen was positive for opiates, oxycodone, and marijuana. Chest x-ray showed cardiomegaly, with mild pulmonary vascular congestion. Progress note dated May 01, 2025. The patient is seen today in the emergency room, bed #16. The patient was about to receive hemodialysis. She was going to be transferred to the floor, but apparently developed elevated blood pressure, was started on Cleviprex, at 3 mg an hour. She gets she is getting nasal O2 at 3 L, and we increase her Procardia to 90 mg twice a day. We are hoping the combination of hemodialysis, and the increase of her Procardia, will control her blood pressure, and allow us to wean her off the Cleviprex. Hopefully, if that is the case, should go to the general medical floor. Current labs include a white count of 7.14, hemoglobin 10.2, hematocrit 31.2, and a platelet count that is 258,000. Sodium 132, potassium 5.6, chlorides 92, CO2 29, BUN 30, creatinine 3.75. Glucose is 337. Objective - Vital Signs Vital signs: Vital Signs Temp 97.9 F 05/01/25 08:20 Pulse 71 05/01/25 11:03 Resp 16 05/01/25 11:03 BP 144/82 05/01/25 11:03 Pulse Ox 100 05/01/25 11:03 FiO2 28 05/01/25 08:04 Intake & Output 04/30/25 05/01/25 05/01/25 18:59 06:59 18:59 Intake Total 479.601 39.999 0 Output Total 8600 Balance -8120.399 39.999 0 Intake: Intake, IV Titration 79.601 39.999 0 Amount Clevidipine Butyrate 25 79.601 39.999 0 mg In Empty Bag 1 bag @ 1 MG/HR 2 mls/hr IV .Q24H [facility] Rx#:[id number] Hemodialysis 400 Output: Hemodialysis 4500 Hemodialysis Net Amount 4100 - Exam No acute distress, oriented 3. Currently on 3 L nasal cannula. HEENT examination is grossly unremarkable. Mucous membranes are moist. No oral lesions. Neck supple. Full range of motion. No adenopathy thyromegaly or neck vein distention. Cardiovascular examination reveals regular rhythm rate. S1-S2 normal. No S3 or S4. No discernible murmur noted. Lungs reveal fine bibasilar crackles. No wheezes. No rhonchi. Breath sounds are equal bilaterally. Abdomen soft bowel sounds are heard. No masses or tenderness. Extremities are intact. Trace edema. No cyanosis or clubbing. Skin is without rash or lesion. Neurologic examination is brief but nonfocal. - Labs CBC & Chem 7: 05/01/25 05:50 05/01/25 05:50 Labs: Abnormal Lab Results - Last 24 Hours (Table) 04/30/25 04/30/25 05/01/25 Range/Units 16:50 20:27 05:50 RBC 3.14 L (4.10-5.20) 10*6/uL Hgb 10.2 L (12.0-15.0) g/dL Hct 31.2 L (37.2-46.3) % MCV 99.4 H (80.0-97.0) fL MCH 32.5 H (27.0-32.0) pg Eosinophils # 1.06 H (0.04-0.35) 10*3/uL Sodium (137-145) mmol/L Potassium (3.5-5.1) mmol/L Chloride (98-107) mmol/L BUN (7-17) mg/dL Creatinine (0.52-1.04) mg/dL Glucose (74-99) mg/dL POC Glucose (mg/dL) 164 H 248 H (70-110) mg/dL AST (14-36) U/L ALT (4-34) U/L Alkaline Phosphatase (38-126) U/L 05/01/25 05/01/25 Range/Units 05:50 08:18 RBC (4.10-5.20) 10*6/uL Hgb (12.0-15.0) g/dL Hct (37.2-46.3) % MCV (80.0-97.0) fL MCH (27.0-32.0) pg Eosinophils # (0.04-0.35) 10*3/uL Sodium 132 L (137-145) mmol/L Potassium 5.6 H (3.5-5.1) mmol/L Chloride 92 L (98-107) mmol/L BUN 30 H (7-17) mg/dL Creatinine 3.75 H (0.52-1.04) mg/dL Glucose 328 H (74-99) mg/dL POC Glucose (mg/dL) 337 H (70-110) mg/dL AST 37 H (14-36) U/L ALT 114 H (4-34) U/L Alkaline Phosphatase 198 H (38-126) U/L Assessment and Plan Assessment: Hypertensive emergency with significantly elevated blood pressure and pulmonary edema. End-stage renal disease requiring hemodialysis. Acute hyperkalemia secondary to renal failure. Left upper extremity pain near graft site, Doppler revealed patent graft. Diabetes mellitus, insulin-dependent, type I. Anemia of chronic disease. History of CVA/TIA. History of optic neuritis. Hypothyroidism. History of depression. History of seizure disorder. Plan: Plan dated April 30, 2025. The patient is seen today, down in the emergency department, room 10. She sitting up in bed. The patient is on 2 L. No respiratory distress. No conversational dyspnea. No use of accessory muscles. She had emergent hemodialysis on April 29. She did use BiPAP last night, with settings of 10/5, 40%. The patient is currently on 2 L. All labs, x-rays, and medications are reviewed. The patient no longer is a candidate for the intensive care unit, and can be downgraded. We will continue to follow make recommendations were appropriate. Prognosis is guarded. Dictation was produced using [employer] software. Please excuse any grammatical, word or spelling errors. Plan dated May 01, 2025. We are hoping the patient could go to the general medical floor, but this morning developed significant hypertension, and required Cleviprex, running at 3 mg an hour. We will increase her Procardia to 90 mg every 12. The patient is also going to have hemodialysis today, with the goal of removing 4 L of fluid. Hopefully, her blood pressure will come under control, and the patient can go to the general medical floor. Labs, x-rays, and all medications are reviewed. Clinically, the patient is doing about the same. She is not in any respiratory distress. She is on 3 L of oxygen. We will continue to follow. Prognosis is guarded. Dictation was produced using [employer] software. Please excuse any grammatical, word or spelling errors. Time with Patient: Greater than 30
[2025-05-01 12:58] LABS: Glucose,Whole Blood 184 mg/dL (70-110)
--- NOTE | 2025-05-01 13:03 | PN ---
PROGRESS NOTE DATE OF SERVICE: 05/01/2025 SUBJECTIVE: This 35-year-old woman was admitted with CHF acute exacerbation, is receiving hemodialysis today. The patient is still on Cleviprex for hypertensive urgency. The patient is being closely monitored. No chest pain. No palpitation. PAST MEDICAL HISTORY: Reviewed. REVIEW OF SYSTEMS: A 14-point review of systems negative except as mentioned earlier. CURRENT MEDICATIONS: Reviewed. PHYSICAL EXAMINATION: VITAL SIGNS: Pulse is 71, blood pressure 140/80, and respirations 16. CHEST: A few scattered rhonchi. CARDIOVASCULAR: S1, S2. ABDOMEN: Soft. NERVOUS SYSTEM: Nonfocal. LABORATORY DATA: Reviewed, potassium 5.6. The patient is noncompliant with diabetic medications and blood sugars are fluctuating. ASSESSMENT: 1. Congestive heart failure acute exacerbation with [id number] diastolic dysfunction. 2. Hypertensive urgency and accelerated hypertension. 3. History of small to moderate pericardial effusion recently. 4. Diabetes mellitus, type 2, brittle. 5. Hypertension. 6. Seizure disorder. 7. History of gastroparesis. 8. History of headaches. RECOMMENDATIONS AND DISCUSSION: I recommend to continue current management and continue symptomatic treatment. I recommend stopping Cleviprex, use p.r.n. hydralazine. Repeat labs. Add Norvasc to the current regimen. Closely follow with Nephrology. Guarded prognosis, because of multiple complex medical issues. Further recommendations to follow. MMODL / IJN: [id number] /
[2025-05-01] MEDS: NIFEdipine XL 90 MG TAB.ER.24 PO SCH (13:43)
[2025-05-01] MEDS: diphenhydrAMINE 25 MG CAP PO PRN (13:43)
[2025-05-01] MEDS: amLODIPine 5 MG TAB PO SCH (13:43)
--- NOTE | 2025-05-01 14:36 | P.PN ---
Subjective Progress Note Date: 05/01/25 Patient is a 35-year-old female being seen as a follow-up for end-stage renal disease. No acute complaints. Seen during dialysis. Vital signs are stable. General: No acute distress. On nasal cannula. HEENT: Head exam is unremarkable. LUNGS: No audible rhonchi or wheezes. HEART: Rate and Rhythm are regular. ABDOMEN: Nontender to plapation EXTREMITITES: no edema noted. Objective - Vital Signs Vital signs: Vital Signs Temp 98.2 F 04/30/25 16:56 Pulse 72 05/01/25 08:04 Resp 18 05/01/25 06:12 BP 153/91 05/01/25 06:12 Pulse Ox 98 05/01/25 08:04 FiO2 28 05/01/25 08:04 Intake & Output 04/30/25 05/01/25 05/01/25 18:59 06:59 18:59 Intake Total 479.601 39.999 Output Total 8600 Balance -8120.399 39.999 Intake: Intake, IV Titration 79.601 39.999 Amount Clevidipine Butyrate 25 79.601 39.999 mg In Empty Bag 1 bag @ 1 MG/HR 2 mls/hr IV .Q24H [facility] Rx#:[id number] Hemodialysis 400 Output: Hemodialysis 4500 Hemodialysis Net Amount 4100 - Labs CBC & Chem 7: 05/01/25 05:50 05/01/25 05:50 Labs: Abnormal Lab Results - Last 24 Hours (Table) 04/30/25 04/30/25 04/30/25 Range/Units 11:35 12:00 16:50 RBC (4.10-5.20) 10*6/uL Hgb (12.0-15.0) g/dL Hct (37.2-46.3) % MCV (80.0-97.0) fL MCH (27.0-32.0) pg Eosinophils # (0.04-0.35) 10*3/uL Sodium (137-145) mmol/L Potassium (3.5-5.1) mmol/L Chloride (98-107) mmol/L BUN (7-17) mg/dL Creatinine (0.52-1.04) mg/dL Glucose (74-99) mg/dL POC Glucose (mg/dL) 234 H 164 H (70-110) mg/dL AST (14-36) U/L ALT (4-34) U/L Alkaline Phosphatase (38-126) U/L Urine Appearance Cloudy H (Clear) Urine Protein 3+ H (Negative) Urine Glucose (UA) 4+ H (Negative) Urine Ketones Trace H (Negative) Ur Squamous Epith Cells 12 H (0-4) /hpf Urine Opiates Screen Detected H (NotDetected) Ur Oxycodone Screen Detected H (NotDetected) U Marijuana (THC) Screen Detected H (NotDetected) 04/30/25 05/01/25 05/01/25 Range/Units 20:27 05:50 05:50 RBC 3.14 L (4.10-5.20) 10*6/uL Hgb 10.2 L (12.0-15.0) g/dL Hct 31.2 L (37.2-46.3) % MCV 99.4 H (80.0-97.0) fL MCH 32.5 H (27.0-32.0) pg Eosinophils # 1.06 H (0.04-0.35) 10*3/uL Sodium 132 L (137-145) mmol/L Potassium 5.6 H (3.5-5.1) mmol/L Chloride 92 L (98-107) mmol/L BUN 30 H (7-17) mg/dL Creatinine 3.75 H (0.52-1.04) mg/dL Glucose 328 H (74-99) mg/dL POC Glucose (mg/dL) 248 H (70-110) mg/dL AST 37 H (14-36) U/L ALT 114 H (4-34) U/L Alkaline Phosphatase 198 H (38-126) U/L Urine Appearance (Clear) Urine Protein (Negative) Urine Glucose (UA) (Negative) Urine Ketones (Negative) Ur Squamous Epith Cells (0-4) /hpf Urine Opiates Screen (NotDetected) Ur Oxycodone Screen (NotDetected) U Marijuana (THC) Screen (NotDetected) Assessment and Plan Assessment: Assessment: 1. End-stage renal disease maintained on hemodialysis on Wednesday schedule. 2. Hyperkalemia secondary to chronic kidney disease and hyperglycemia. Improved postdialysis. 3. Volume overload. Left ventricular EF at 60%, RVSP 44, moderate tricuspid regurgitation, small pericardial effusion without tamponade 4. Hypertensive emergency 5. Chronic kidney disease mineral bone disease maintained on PhosLo. 6. Diabetes mellitus 7. History of pericardial effusion Plan: Hemodialysis today and off tomorrow. Challenge ultrafiltration. Goal UF 4 to 5 L. Echocardiogram showing left ventricular EF at 60%, RVSP 44, moderate tricuspid regurgitation, small pericardial effusion without tamponade Low-salt diet and fluid restriction Maintain [facility] Tight blood glucose control. Avoid hydralazine due to history of pericardial effusion Blood pressure well-controlled when euvolemic Continue nifedipine 60 mg q12hr, clonidine 0.3 mg PO TID, Coreg 50 mg PO BID I have seen and examined the patient with resident and agree with A&P as written. Assess for HD in AM.
--- NOTE | 2025-05-01 14:46 | CDI ---
Documentation Clarification Form Date: 05/01/2025 02:04:28 PM From: Jeanne Whitmore RN, CCDS Phone: [phone] Admit Date: 04/29/2025 12:47:00 PM Patient Name: Marita Perrin Visit Number: [id number] Discharge Date: ATTENTION: The Clinical Documentation Specialists (CDI) and [facility] Coding Staff appreciate your assistance in clarifying documentation. Please respond to the clarification below the line at the bottom and electronically sign. The CDI & [facility] Coding staff will review the response and follow-up if needed. Please note: Queries are made part of the Legal Health Record. If you have any questions, please contact the author of this message via ITS. DoctorKaterin Chan Conflicting documentation has been found in the medical record. As attending physician, please provide clarification. 04/30 H/P (Medicine) and subsequent progress notes: Hypertensive urgency 04/30 Cardiology Consult and subsequent progress notes: Hypertensive urgency. 04/29 Pulmonary consult and subsequent progress notes: Hypertensive emergency with significantly elevated blood pressure and pulmonary edema 04/30 Nephrology Consult and subsequent progress notes: Hypertensive emergency. Improved. History/Risk Factors: Diabetes Mellitus, Hypertension severe uncontrolled, seizure, End-stage renal disease maintained on hemodialysis Clinical Indicators: 35-year-old female present with complaints of shortness of breath. Normal O2 Sat's had work of breathing and placed on CPAP. She was markedly hypertensive. No missed HD and reports taking her medication. 04/29 VS: (09:13) 100/112 85 17 99% RA, (11:00 235/139 89 17 100 BIPAP, (13:27) 240/116 93 17 97% 2/l, (13:39) 210/110 04/29 Labs: NA 127, K+ 6.7, BUN 56, CR 4.60, BNP 09490 04/29 CXR: mild pulmonary vascular congestion. Treatment: ICU /Telemetry Monitoring Celeviprex 25 MG @ 2 ML/HR 04/29-05/01 Procardia Xl 60 MG PO Q 12 HR 05/01 Imdur 120 MG PO Daily 04/30-05/01 Norvasc 5 MG PO Daily 05/01- Please clarify which diagnosis is most appropriate: [ ] Hypertensive Emergency [ ] Hypertensive Urgency [ ] Other (please specify) [ ] Unable to determine (Template Last Revised: January 2021) Hypertensive Urgency MTDD
--- NOTE | 2025-05-01 16:15 | CDI ---
Documentation Clarification Form Date: 05/01/2025 02:57:00 PM From: Jeanne Whitmore RN, CCDS Phone: [phone] Admit Date: 04/29/2025 12:47:00 PM Patient Name: Marita Perrin Visit Number: [id number] Discharge Date: ATTENTION: The Clinical Documentation Specialists (CDI) and [facility] Coding Staff appreciate your assistance in clarifying documentation. Please respond to the clarification below the line at the bottom and electronically sign. The CDI & [facility] Coding staff will review the response and follow-up if needed. Please note: Queries are made part of the Legal Health Record. If you have any questions, please contact the author of this message via ITS. DoctorKaterin Chan Conflicting documentation has been found in the medical record. As attending physician, please provide clarification. 04/29 (Medicine) H/P and subsequent progress notes: Diabetes type 2 brittle. 05/01 Cardiology progress note: Diabetes mellitus type 1 since age 6 05/01 Pulmonary progress notes: Diabetes mellitus, insulin-dependent, type I. History/Risk Factors: Diabetes Mellitus, Hypertension severe uncontrolled, seizure, End-stage renal disease maintained on hemodialysis Clinical Indicators: 35-year-old female present with complaints of shortness of breath. Normal O2 Sat's had work of breathing and placed on CPAP. She was markedly hypertensive. No missed HD and reports taking her medication. She has known history of Diabetes mellitus. 04/29 Glucose 410, 332, 315, 05/01 Glucose 315, 234, 164 Treatment: ICU /Telemetry monitoring Lantus 20 unit SQ bid @ 0700, 2100, 04/30-05/01 Humalog 5 unit SQ AC-TID 04/30-05/01 Tredjenta 5 MG PO Daily 04/30-05/01 Please clarify which diagnosis is most appropriate: [ ] Type 2 Diabetes mellitus brittle with Hyperglycemia [ ] Type 1 Diabetes mellitus with Hyperglycemia [ ] Other (please specify) [ ] Unable to determine (Template Last Revised: January 2021) Type 1 Diabetes mellitus with Hyperglycemia MTDD
[2025-05-01 16:47] LABS: Glucose,Whole Blood 341 mg/dL (70-110)
[2025-05-01 18:29] LABS: ALT 102 U/L (4-34); AST 34 U/L (14-36); African American GFR (CKD) 23 (>60 ml/min/1.73 sqM); Albumin 4.4 g/dL (3.5-5.0); Alkaline Phosphatase 200 U/L (38-126); Anion Gap 11 mmol/L; Blood Urea Nitrogen 20 mg/dL (7-17); Calcium 9.4 mg/dL (8.4-10.2); Carbon Dioxide 30 mmol/L (22-30); Chloride 93 mmol/L (98-107); Glucose 358 mg/dL (74-99); Non-African American GFR(CKD) 20 (>60 ml/min/1.73 sqM); Potassium 5.8 mmol/L (3.5-5.1); Sodium 134 mmol/L (137-145); Total Bilirubin 0.6 mg/dL (0.2-1.3); Total Protein 6.9 g/dL (6.3-8.2)
[2025-05-01] MEDS: hydrALAZINE HCL 50 MG TAB PO SCH (19:24)
[2025-05-01] MEDS: SODIUM ZIRCONIUM CYCLOSILICATE 10 GM PACKET PO ONE (19:44)
[2025-05-01 21:11] LABS: Glucose,Whole Blood 343 mg/dL (70-110)
[2025-05-01] MEDS: minoxidiL 2.5 MG TAB PO SCH (23:36)
[2025-05-02 06:08] LABS: Basophils # (A) 0.08 10*3/uL (0.00-0.10); Basophils % (A) 1.2 %; Eosinophils # (A) 1.28 10*3/uL (0.04-0.35); Eosinophils % (A) 18.6 %; HCT 29.3 % (37.2-46.3); HGB 9.6 g/dL (12.0-15.0); Lymphocytes # (A) 1.08 10*3/uL (0.90-5.00); Lymphocytes % (A) 15.7 %; MCH 32.7 pg (27.0-32.0); MCHC 32.8 g/dL (32.0-37.0); MCV 99.7 fL (80.0-97.0); Mean Platelet Volume 10.2 fL (9.5-12.2); Monocytes # (A) 0.66 10*3/uL (0.20-1.00); Monocytes % (A) 9.6 %; Neutrophils # (A) 3.75 10*3/uL (1.80-7.70); Neutrophils % (A) 54.5 %; Platelet Count 231 10*3/uL (140-440); RBC 2.94 10*6/uL (4.10-5.20); RDW 16.6 % (11.5-14.5); WBC 6.88 10*3/uL (4.50-10.00)
[2025-05-02 06:25] LABS: African American GFR (CKD) 17 (>60 ml/min/1.73 sqM); Anion Gap 11 mmol/L; Blood Urea Nitrogen 34 mg/dL (7-17); Calcium 9.2 mg/dL (8.4-10.2); Carbon Dioxide 29 mmol/L (22-30); Chloride 90 mmol/L (98-107); Glucose 348 mg/dL (74-99); Non-African American GFR(CKD) 15 (>60 ml/min/1.73 sqM); Potassium 5.9 mmol/L (3.5-5.1); Sodium 130 mmol/L (137-145)
[2025-05-02 06:35] LABS: Glucose,Whole Blood 417 mg/dL (70-110)
--- NOTE | 2025-05-02 09:24 | P.PN ---
Subjective Progress Note Date: 05/02/25 Principal diagnosis: Respiratory failure. This is a 35-year-old female with history of multiple medical problems, familiar to our service, known history of type 1 diabetes, end-stage renal disease on hemodialysis Tuesdays and Saturdays. Patient presented to the ER tod with mostly 1 with a history of shortness of breath. EMS arrived on the scene, patient had normal O2 saturation, she was having difficulty breathing, placed on CPAP, she was also noted to be quite hypertensive. Patient states that her last hemodialysis was done yesterday. Brought into the ER, chest x-ray showed evidence of pulmonary edema, her blood pressure was extremely elevated, as high as 240/110. In addition to her elevated blood pressure, patient was noted to be in pulmonary edema, and she was found to have hyperkalemia with potassium as high as 6.7. Patient was started on Lokelma and given treatment as per protocol for hyperkalemia nephrology was notified, the patient is to start on dialysis. In the meantime I recommended Cleviprex to be titrated for blood pressure in the 70-1 80 systolic range. Patient denies any headaches, she has mostly shortness of breath, no chest pain, no fever no chills no hemoptysis. No nausea no vomiting no abdominal pain. The patient herself is not a great historian. Progress note dated April 30, 2025. The patient was seen yesterday in consultation. She came in with shortness of breath. Patient needed emergent hemodialysis, which did take place, April 29. She seen today, in the emergency department, room 10. She is currently on 2 L nasal cannula. She is not receiving any IV fluids. She did use BiPAP, with settings of 10/5, and 40%. The patient was initially scheduled to go to the intensive care unit, but she can be downgraded. She is very stable. He is sitting up in bed, in no distress. Current laboratory data includes a white count 9.5, hemoglobin 9.8, hematocrit 29.7, and a platelet count of 219,000. Sodium 132, potassium 5.2, chloride 92, CO2 27, anion gap 13, BUN 38, creatinine 4. Glucose is 234. Drug screen was positive for opiates, oxycodone, and marijuana. Chest x-ray showed cardiomegaly, with mild pulmonary vascular congestion. Progress note dated May 01, 2025. The patient is seen today in the emergency room, bed #16. The patient was about to receive hemodialysis. She was going to be transferred to the floor, but apparently developed elevated blood pressure, was started on Cleviprex, at 3 mg an hour. She gets she is getting nasal O2 at 3 L, and we increase her Procardia to 90 mg twice a day. We are hoping the combination of hemodialysis, and the increase of her Procardia, will control her blood pressure, and allow us to wean her off the Cleviprex. Hopefully, if that is the case, should go to the general medical floor. Current labs include a white count of 7.14, hemoglobin 10.2, hematocrit 31.2, and a platelet count that is 258,000. Sodium 132, potassium 5.6, chlorides 92, CO2 29, BUN 30, creatinine 3.75. Glucose is 337. Progress note dated May 02, 2025. 35-year-old female well-known to our service. She is seen in the emergency department, room 10. The patient was currently on 2 L of oxygen. No IV fluids. Her blood pressure was better controlled. The patient was scheduled to come to the intensive care unit, but can be downgraded to 3 S. She has no complaints today. White count was 6.88, hemoglobin 9.6, hematocrit 29.3, platelet count 231,000. Sodium 130, potassium 5.9, chlorides 90, CO2 29, anion gap 11, BUN 34, and creatinine 3.84. Glucose is 417. Urine reveals gram-negative bacilli. No recent chest x-ray. Objective - Vital Signs Vital signs: Vital Signs Temp 98.2 F 05/01/25 14:42 Pulse 74 05/02/25 08:32 Resp 16 05/02/25 07:48 BP 150/73 05/02/25 07:48 Pulse Ox 97 05/02/25 08:21 FiO2 28 05/01/25 08:04 Intake & Output 05/01/25 05/02/25 05/02/25 18:59 06:59 18:59 Intake Total 500 Output Total 7500 Balance -7000 Intake: Intake, IV Titration 0 Amount Clevidipine Butyrate 25 0 mg In Empty Bag 1 bag @ 1 MG/HR 2 mls/hr IV .Q24H [facility] Rx#:[id number] Hemodialysis 500 Output: Hemodialysis 4000 Hemodialysis Net Amount 3500 - Exam No acute distress, oriented 3. Currently on 2 L nasal cannula. HEENT examination is grossly unremarkable. Mucous membranes are moist. No oral lesions. Neck supple. Full range of motion. No adenopathy thyromegaly or neck vein distention. Cardiovascular examination reveals regular rhythm rate. S1-S2 normal. No S3 or S4. No discernible murmur noted. Lungs reveal clear bilateral breath sounds. No wheezes. No rhonchi. No crackles. Breath sounds are improved. Abdomen soft bowel sounds are heard. No masses or tenderness. Extremities are intact. Trace edema. No cyanosis or clubbing. Skin is without rash or lesion. Neurologic examination is brief but nonfocal. - Labs CBC & Chem 7: 05/02/25 05:46 05/02/25 05:46 Labs: Abnormal Lab Results - Last 24 Hours (Table) 05/01/25 05/01/25 05/01/25 Range/Units 12:56 16:46 17:39 RBC (4.10-5.20) 10*6/uL Hgb (12.0-15.0) g/dL Hct (37.2-46.3) % MCV (80.0-97.0) fL MCH (27.0-32.0) pg Eosinophils # (0.04-0.35) 10*3/uL Sodium 134 L (137-145) mmol/L Potassium 5.8 H (3.5-5.1) mmol/L Chloride 93 L (98-107) mmol/L BUN 20 H (7-17) mg/dL Creatinine 2.96 H (0.52-1.04) mg/dL Glucose 358 H (74-99) mg/dL POC Glucose (mg/dL) 184 H 341 H (70-110) mg/dL ALT 102 H (4-34) U/L Alkaline Phosphatase 200 H (38-126) U/L 05/01/25 05/02/25 05/02/25 Range/Units 21:09 05:46 05:46 RBC 2.94 L (4.10-5.20) 10*6/uL Hgb 9.6 L (12.0-15.0) g/dL Hct 29.3 L (37.2-46.3) % MCV 99.7 H (80.0-97.0) fL MCH 32.7 H (27.0-32.0) pg Eosinophils # 1.28 H (0.04-0.35) 10*3/uL Sodium 130 L (137-145) mmol/L Potassium 5.9 H (3.5-5.1) mmol/L Chloride 90 L (98-107) mmol/L BUN 34 H (7-17) mg/dL Creatinine 3.84 H (0.52-1.04) mg/dL Glucose 348 H (74-99) mg/dL POC Glucose (mg/dL) 343 H (70-110) mg/dL ALT (4-34) U/L Alkaline Phosphatase (38-126) U/L 05/02/25 Range/Units 06:34 RBC (4.10-5.20) 10*6/uL Hgb (12.0-15.0) g/dL Hct (37.2-46.3) % MCV (80.0-97.0) fL MCH (27.0-32.0) pg Eosinophils # (0.04-0.35) 10*3/uL Sodium (137-145) mmol/L Potassium (3.5-5.1) mmol/L Chloride (98-107) mmol/L BUN (7-17) mg/dL Creatinine (0.52-1.04) mg/dL Glucose (74-99) mg/dL POC Glucose (mg/dL) 417 H (70-110) mg/dL ALT (4-34) U/L Alkaline Phosphatase (38-126) U/L Microbiology - Last 24 Hours (Table) 04/29/25 12:00 Urine Culture - Preliminary Urine,Voided Gram Neg Bacilli 04/29/25 23:02 Blood Culture - Preliminary Blood Assessment and Plan Assessment: Hypertensive emergency with significantly elevated blood pressure and pulmonary edema. End-stage renal disease requiring hemodialysis. Acute hyperkalemia secondary to renal failure. Possible gram-negative urinary tract infection. Left upper extremity pain near graft site, Doppler revealed patent graft. Diabetes mellitus, insulin-dependent, type I. Anemia of chronic disease. History of CVA/TIA. History of optic neuritis. Hypothyroidism. History of depression. History of seizure disorder. Plan: Plan dated April 30, 2025. The patient is seen today, down in the emergency department, room 10. She sitting up in bed. The patient is on 2 L. No respiratory distress. No conversational dyspnea. No use of accessory muscles. She had emergent hemodialysis on April 29. She did use BiPAP last night, with settings of 10/5, 40%. The patient is currently on 2 L. All labs, x-rays, and medications are reviewed. The patient no longer is a candidate for the intensive care unit, and can be downgraded. We will continue to follow make recommendations were appropriate. Prognosis is guarded. Dictation was produced using [employer] dictation software. Please excuse any grammatical, word or spelling errors. Plan dated May 01, 2025. We are hoping the patient could go to the general medical floor, but this lillian bell developed significant hypertension, and required Cleviprex, running at 3 mg an hour. We will increase her Procardia to 90 mg every 12. The patient is also going to have hemodialysis today, with the goal of removing 4 L of fluid. Hopefully, her blood pressure will come under control, and the patient can go to the general medical floor. Labs, x-rays, and all medications are reviewed. Clinically, the patient is doing about the same. She is not in any respiratory distress. She is on 3 L of oxygen. We will continue to follow. Prognosis is guarded. Dictation was produced using [employer] software. Please excuse any grammatical, word or spelling errors. Plan dated May 02, 2025. The patient was seen in the emergency department, room 10. She is currently on 2 L nasal O2. Her blood pressure is much better controlled. Labs, x-rays, and all medications are reviewed. The patient is stable to be transferred to the 3 S. floor. She currently does not need the intensive care unit. In addition, there is gram-negative bacteria in her urine. The patient is given Levaquin 250 mg daily. It can be adjusted as per pharmacy. Additional recommendations and suggestions are forthcoming. Prognosis is guarded. Dragon statement Time with Patient: Less than 30
[2025-05-02] MEDS: amLODIPine 10 MG TAB PO SCH (09:39)
[2025-05-02] MEDS: LEVOFLOXACIN 500 MG TAB PO SCH (09:59)
[2025-05-02 11:34] LABS: Glucose,Whole Blood 53 mg/dL (70-110)
--- NOTE | 2025-05-02 11:39 | XR ---
EXAMINATION TYPE: XR chest 1V portable DATE OF EXAM: 05/02/2025 11:15 AM COMPARISON: Chest radiographs from 04/30/2025 CLINICAL INDICATION: Female, 35 years old with history of chf; TECHNIQUE: XR chest 1V portable Frontal view of the chest. FINDINGS: Lungs/Pleura: There is no evidence of pleural effusion, focal consolidation, or pneumothorax. Pulmonary vascularity: Pulmonary vascular congestion. Heart/mediastinum: Cardiomediastinal silhouette is enlarged. Musculoskeletal: No acute osseous pathology. IMPRESSION: Cardiomegaly and mild pulmonary vascular congestion. Correlate with BNP for congestive heart failure. [facility], , 05/02/2025 11:36 AM
[2025-05-02] MEDS: INSULIN LISPRO (HumaLOG) 100 UNIT/ML 10 mL VL SQ SCH (11:42)
--- NOTE | 2025-05-02 11:42 | PN ---
PROGRESS NOTE DATE OF SERVICE: 05/02/2025 SUBJECTIVE: This 35-year-old woman was admitted with hypertensive urgency, CHF; also complains of cough and brawny sputum. Also, the patient is receiving hemodialysis. PAST MEDICAL HISTORY: Reviewed. REVIEW OF SYSTEMS: 14-point review of systems negative except as mentioned earlier. CURRENT MEDICATIONS: Reviewed. PHYSICAL EXAMINATION: VITAL SIGNS: Pulse is 68, blood pressure 150/73, and respirations 16. CHEST: Bilateral scattered rhonchi and crackles. ABDOMEN: Soft, nontender. EXTREMITIES: Legs, minimal edema. LABORATORY DATA: Reviewed. ASSESSMENT: 1. Congestive heart failure acute exacerbation with [id number] diastolic dysfunction. 2. Acute bronchitis, tracheobronchitis, purulent. 3. Hypertensive urgency and accelerated hypertension. 4. History of [id number] pericardial effusion recently. 5. Diabetes, type 1, brittle. 6. Hypertension. 7. Seizure disorder. 8. Gastroparesis history. 9. History of headaches. RECOMMENDATION: Recommend to continue current management. Continue symptomatic treatment. Add bronchodilators and monitor closely. Increase the dose of insulin. The patient is rather noncompliant. Repeat labs. Also, recommend repeat x-ray, short course of antibiotics for bronchitis. Obtain the cultures, sputum and blood. Guarded prognosis. Further recommendations to follow. See orders for details. Continue with hemodialysis per Nephrology. MMODL / IJN: [id number] /
--- NOTE | 2025-05-02 11:52 | P.PN ---
Subjective Progress Note Date: 05/02/25 Patient is a 35-year-old female being seen as a follow-up for end-stage renal disease. Patient complaining of nausea. Vital signs are stable. General: No acute distress. On nasal cannula. HEENT: Head exam is unremarkable. LUNGS: No audible rhonchi or wheezes. HEART: Rate and Rhythm are regular. ABDOMEN: Nontender to plapation EXTREMITITES: no edema noted. Objective - Vital Signs Vital signs: Vital Signs Temp 98.2 F 05/01/25 14:42 Pulse 74 05/02/25 08:32 Resp 16 05/02/25 07:48 BP 150/73 05/02/25 07:48 Pulse Ox 97 05/02/25 08:21 FiO2 28 05/01/25 08:04 Intake & Output 05/01/25 05/02/25 05/02/25 18:59 06:59 18:59 Intake Total 500 Output Total 7500 Balance -7000 Intake: Intake, IV Titration 0 Amount Clevidipine Butyrate 25 0 mg In Empty Bag 1 bag @ 1 MG/HR 2 mls/hr IV .Q[facility]H [facility] Rx#:[id number] Hemodialysis 500 Output: Hemodialysis 4000 Hemodialysis Net Amount 3500 - Labs CBC & Chem 7: 05/02/25 05:46 05/02/25 05:46 Labs: Abnormal Lab Results - Last 24 Hours (Table) 05/01/25 05/01/25 05/01/25 Range/Units 12:56 16:46 17:39 RBC (4.10-5.20) 10*6/uL Hgb (12.0-15.0) g/dL Hct (37.2-46.3) % MCV (80.0-97.0) fL MCH (27.0-32.0) pg Eosinophils # (0.04-0.35) 10*3/uL Sodium 134 L (137-145) mmol/L Potassium 5.8 H (3.5-5.1) mmol/L Chloride 93 L (98-107) mmol/L BUN 20 H (7-17) mg/dL Creatinine 2.96 H (0.52-1.04) mg/dL Glucose 358 H (74-99) mg/dL POC Glucose (mg/dL) 184 H 341 H (70-110) mg/dL ALT 102 H (4-34) U/L Alkaline Phosphatase 200 H (38-126) U/L 05/01/25 05/02/25 05/02/25 Range/Units 21:09 05:46 05:46 RBC 2.94 L (4.10-5.20) 10*6/uL Hgb 9.6 L (12.0-15.0) g/dL Hct 29.3 L (37.2-46.3) % MCV 99.7 H (80.0-97.0) fL MCH 32.7 H (27.0-32.0) pg Eosinophils # 1.28 H (0.04-0.35) 10*3/uL Sodium 130 L (137-145) mmol/L Potassium 5.9 H (3.5-5.1) mmol/L Chloride 90 L (98-107) mmol/L BUN 34 H (7-17) mg/dL Creatinine 3.84 H (0.52-1.04) mg/dL Glucose 348 H (74-99) mg/dL POC Glucose (mg/dL) 343 H (70-110) mg/dL ALT (4-34) U/L Alkaline Phosphatase (38-126) U/L 05/02/25 Range/Units 06:34 RBC (4.10-5.20) 10*6/uL Hgb (12.0-15.0) g/dL Hct (37.2-46.3) % MCV (80.0-97.0) fL MCH (27.0-32.0) pg Eosinophils # (0.04-0.35) 10*3/uL Sodium (137-145) mmol/L Potassium (3.5-5.1) mmol/L Chloride (98-107) mmol/L BUN (7-17) mg/dL Creatinine (0.52-1.04) mg/dL Glucose (74-99) mg/dL POC Glucose (mg/dL) 417 H (70-110) mg/dL ALT (4-34) U/L Alkaline Phosphatase (38-126) U/L Microbiology - Last 24 Hours (Table) 04/29/25 12:00 Urine Culture - Preliminary Urine,Voided Gram Neg Bacilli 04/29/25 23:02 Blood Culture - Preliminary Blood Assessment and Plan Assessment: 1. End-stage renal disease maintained on hemodialysis on Wednesday schedule. 2. Hyperkalemia secondary to chronic kidney disease and hyperglycemia. Improved postdialysis. 3. Volume overload. Left ventricular EF at 60%, RVSP 44, moderate tricuspid regurgitation, small pericardial effusion without tamponade 4. Hypertensive emergency 5. Chronic kidney disease mineral bone disease maintained on PhosLo. 6. Diabetes mellitus 7. History of pericardial effusion Plan: Hemodialysis toda. Challenge ultrafiltration. Goal UF 4 to 5 L. Echocardiogram showing left ventricular EF at 60%, RVSP 44, moderate tricuspid regurgitation, small pericardial effusion without tamponade Low-salt diet and fluid restriction Maintain [facility] Tight blood glucose control. Avoid hydralazine due to history of pericardial effusion Blood pressure well-controlled when euvolemic Continue nifedipine 60 mg q12hr, minoxidil 2.5 mg QD, Coreg 50 mg PO BID Continue clonidine 0.3 mg PO TID, hold if BP < 120/80 I have seen and examined the patient with resident and agree with A&P as written. BP better. Extra HD today due to hyperkalemia and UF.
[2025-05-02 12:24] LABS: Glucose,Whole Blood 60 mg/dL (70-110)
--- NOTE | 2025-05-02 12:29 | P.PN ---
Subjective Progress Note Date: 05/02/25 This is a 35-year-old female patient of Dr. Avila with past medical history of end-stage renal disease on hemodialysis. Patient presented to the hospital due to shortness of breath, hypoxia, severely elevated blood pressure at 240/110. Chest x-ray revealed pulmonary edema. Patient underwent dialysis and since that time her symptoms are improved. Patient does not make urine. Her initial potassium was 6.7. Patient was started on Cleviprex which improved her blood pressure control. Cardiology was consulted due to pulmonary edema and severe uncontrolled hypertension. Patient denies chest pain and shortness of breath is improved. Echocardiogram in December 2024 revealed normal LV systolic function, small to moderate amount of pericardial effusion. 05/01/2025 Patient is seen today in the emergency center waiting for a bed in the ICU. Blood pressure 153/91, heart rate 65, pulse ox 97% on 2 L nasal cannula. Patient has been afebrile. Echocardiogram reveals EF of 60%, RVSP 44, moderate TR, small pericardial effusion without tamponade. Results of the echocardiogram reviewed with the patient. Repeat blood work reveals hemoglobin 10.2, sodium 132, potassium 5.6, BUN 30 creatinine 3.75. AST 37, ALT 114, alkaline phosphatase 198. Patient continues to have improvement of her shortness of breath. 05/02/2025 Patient is seen today is the ER and has been downgraded to CSU. She is off Cleviprex and BP readings are improved. Blood pressure 112/62, heart rate in the 60s and 70s, pulse ox 90% on 2 L nasal cannula. Repeat blood work reveals WBC 6.8, hemoglobin 9.6, BUN 34 creatinine 3.84, sodium 130, potassium 5.9. Repeat chest x-ray reveals cardiomegaly and mild pulmonary vascular congestion. Physical examination: Gen: This is a 35-year-old female in no acute distress VS: reviewed HEENT: Head is atraumatic, normocephalic. Pupils equal, round. Sclerae is anicteric. NECK: Supple. No JVD. Carotid upstroke is normal. No bruit. LUNGS: No crackles or rhonchi. No intercostal retractions. HEART: Reveals 1st and 2nd heart sounds. An S4 is heard. ABDOMEN: Soft No tenderness. EXTREMITIES: No pedal edema. Dorsalis pedis palpable bilaterally. NEUROLOGICAL: Patient is awake, alert and oriented x3. Assessment: Hypertensive urgency Acute pulmonary edema End-stage renal disease on hemodialysis History of pericardial effusion, stable Elevated liver function test Chronic diastolic heart failure Hypertension Hyperlipidemia History of sinus tachycardia Diabetes mellitus type 1 since age 6 Plan: Continue patient's home cardiac medications: Aspirin, Coreg 50 mg twice daily, clonidine 0.3 mg 3 times daily including Procardia XL 90 mg every 12 hours Hold atorvastatin due to elevated liver function test Cleviprex has been discontinued Further recommendations to follow based upon clinical course Nurse practitioner note has been reviewed, I agree with documented findings and plan of care. Patient was seen and examined. Objective - Vital Signs Vital signs: Vital Signs Temp 98.2 F 05/01/25 14:42 Pulse 68 05/02/25 07:48 Resp 16 05/02/25 07:48 BP 150/73 05/02/25 07:48 Pulse Ox 99 05/02/25 07:48 FiO2 28 05/01/25 08:04 Intake & Output 05/01/25 05/02/25 05/02/25 18:59 06:59 18:59 Intake Total 500 Output Total 7500 Balance -7000 Intake: Intake, IV Titration 0 Amount Clevidipine Butyrate 25 0 mg In Empty Bag 1 bag @ 1 MG/HR 2 mls/hr IV .Q24H [facility] Rx#:[id number] Hemodialysis 500 Output: Hemodialysis 4000 Hemodialysis Net Amount 3500 - Labs CBC & Chem 7: 05/02/25 05:46 05/02/25 05:46 Labs: Abnormal Lab Results - Last 24 Hours (Table) 05/01/25 05/01/25 05/01/25 Range/Units 08:18 12:56 16:46 RBC (4.10-5.20) 10*6/uL Hgb (12.0-15.0) g/dL Hct (37.2-46.3) % MCV (80.0-97.0) fL MCH (27.0-32.0) pg Eosinophils # (0.04-0.35) 10*3/uL Sodium (137-145) mmol/L Potassium (3.5-5.1) mmol/L Chloride (98-107) mmol/L BUN (7-17) mg/dL Creatinine (0.52-1.04) mg/dL Glucose (74-99) mg/dL POC Glucose (mg/dL) 337 H 184 H 341 H (70-110) mg/dL ALT (4-34) U/L Alkaline Phosphatase (38-126) U/L 05/01/25 05/01/25 05/02/25 Range/Units 17:39 21:09 05:46 RBC 2.94 L (4.10-5.20) 10*6/uL Hgb 9.6 L (12.0-15.0) g/dL Hct 29.3 L (37.2-46.3) % MCV 99.7 H (80.0-97.0) fL MCH 32.7 H (27.0-32.0) pg Eosinophils # 1.28 H (0.04-0.35) 10*3/uL Sodium 134 L (137-145) mmol/L Potassium 5.8 H (3.5-5.1) mmol/L Chloride 93 L (98-107) mmol/L BUN 20 H (7-17) mg/dL Creatinine 2.96 H (0.52-1.04) mg/dL Glucose 358 H (74-99) mg/dL POC Glucose (mg/dL) 343 H (70-110) mg/dL ALT 102 H (4-34) U/L Alkaline Phosphatase 200 H (38-126) U/L 05/02/25 05/02/25 Range/Units 05:46 06:34 RBC (4.10-5.20) 10*6/uL Hgb (12.0-15.0) g/dL Hct (37.2-46.3) % MCV (80.0-97.0) fL MCH (27.0-32.0) pg Eosinophils # (0.04-0.35) 10*3/uL Sodium 130 L (137-145) mmol/L Potassium 5.9 H (3.5-5.1) mmol/L Chloride 90 L (98-107) mmol/L BUN 34 H (7-17) mg/dL Creatinine 3.84 H (0.52-1.04) mg/dL Glucose 348 H (74-99) mg/dL POC Glucose (mg/dL) 417 H (70-110) mg/dL ALT (4-34) U/L Alkaline Phosphatase (38-126) U/L Microbiology - Last 24 Hours (Table) 04/29/25 12:00 Urine Culture - Preliminary Urine,Voided Gram Neg Bacilli 04/29/25 23:02 Blood Culture - Preliminary Blood
[2025-05-02 12:51] LABS: Glucose,Whole Blood 118 mg/dL (70-110)
[2025-05-02] MEDS ORDERED: HYDROmorphone 0.5 MG/0.5 ML SYRINGE IVP PRN (14:38)
[2025-05-02 16:26] LABS: Glucose,Whole Blood 293 mg/dL (70-110)
[2025-05-02] MEDS: diphenhydrAMINE 50 MG/ML 1 ML VIAL IVP PRN (16:29)
[2025-05-02] MEDS: MORPHINE SULFATE 4 MG/ML SYRINGE IVP PRN (17:17)
[2025-05-02 20:18] LABS: Glucose,Whole Blood 179 mg/dL (70-110)
[2025-05-02] MEDS: INSULIN GLARGINE (LANTUS) 100 UNIT/ML SYR SQ SCH (20:25)
[2025-05-03] MEDS: ALPRAZolam 0.25 MG TAB PO PRN (04:47)
[2025-05-03 05:42] LABS: Glucose,Whole Blood 398 mg/dL (70-110)
[2025-05-03 06:14] LABS: Basophils # (A) 0.08 10*3/uL (0.00-0.10); Basophils % (A) 1.1 %; Eosinophils % (A) 18.7 %; HCT 32.7 % (37.2-46.3); HGB 10.6 g/dL (12.0-15.0); Lymphocytes # (A) 0.94 10*3/uL (0.90-5.00); Lymphocytes % (A) 12.6 %; MCH 32.6 pg (27.0-32.0); MCHC 32.4 g/dL (32.0-37.0); MCV 100.6 fL (80.0-97.0); Monocytes # (A) 0.66 10*3/uL (0.20-1.00); Monocytes % (A) 8.8 %; Neutrophils # (A) 4.37 10*3/uL (1.80-7.70); Neutrophils % (A) 58.3 %; Platelet Count 262 10*3/uL (140-440); RBC 3.25 10*6/uL (4.10-5.20); RDW 16.9 % (11.5-14.5); WBC 7.49 10*3/uL (4.50-10.00)
[2025-05-03 06:30] LABS: ALT 67 U/L (4-34); AST 21 U/L (14-36); African American GFR (CKD) 17 (>60 ml/min/1.73 sqM); Albumin 4.2 g/dL (3.5-5.0); Alkaline Phosphatase 204 U/L (38-126); Anion Gap 8 mmol/L; Blood Urea Nitrogen 36 mg/dL (7-17); Calcium 9.4 mg/dL (8.4-10.2); Carbon Dioxide 31 mmol/L (22-30); Chloride 94 mmol/L (98-107); Glucose 369 mg/dL (74-99); Non-African American GFR(CKD) 14 (>60 ml/min/1.73 sqM); Potassium 5.9 mmol/L (3.5-5.1); Sodium 133 mmol/L (137-145); Total Bilirubin 0.5 mg/dL (0.2-1.3); Total Protein 6.6 g/dL (6.3-8.2)
[2025-05-03 11:17] LABS: Glucose,Whole Blood 112 mg/dL (70-110)
--- NOTE | 2025-05-03 12:20 | P.PN ---
Subjective Progress Note Date: 05/03/25 This is a 35-year-old female patient of Dr. Avila with past medical history of end-stage renal disease on hemodialysis. Patient presented to the hospital due to shortness of breath, hypoxia, severely elevated blood pressure at 240/110. Chest x-ray revealed pulmonary edema. Patient underwent dialysis and since that time her symptoms are improved. Patient does not make urine. Her initial potassium was 6.7. Patient was started on Cleviprex which improved her blood pressure control. Cardiology was consulted due to pulmonary edema and severe uncontrolled hypertension. Patient denies chest pain and shortness of breath is improved. Echocardiogram in December 2024 revealed normal LV systolic function, small to moderate amount of pericardial effusion. 05/01/2025 Patient is seen today in the emergency center waiting for a bed in the ICU. Blood pressure 153/91, heart rate 65, pulse ox 97% on 2 L nasal cannula. Patient has been afebrile. Echocardiogram reveals EF of 60%, RVSP 44, moderate TR, small pericardial effusion without tamponade. Results of the echocardiogram reviewed with the patient. Repeat blood work reveals hemoglobin 10.2, sodium 132, potassium 5.6, BUN 30 creatinine 3.75. AST 37, ALT 114, alkaline phosphatase 198. Patient continues to have improvement of her shortness of breath. 05/02/2025 Patient is seen today is the ER and has been downgraded to CSU. She is off Cleviprex and BP readings are improved. Blood pressure 112/62, heart rate in the 60s and 70s, pulse ox 90% on 2 L nasal cannula. Repeat blood work reveals WBC 6.8, hemoglobin 9.6, BUN 34 creatinine 3.84, sodium 130, potassium 5.9. Repeat chest x-ray reveals cardiomegaly and mild pulmonary vascular congestion. 05/03/2025 Patient is seen today on the cardiac stepdown unit. She is receiving hemo dialysis this morning. Blood pressure 148/83, heart rate 84, pulse ox 99% on 1 L nasal cannula. She denies chest pain or chest pressure. Repeat blood work reveals hemoglobin 10.6, sodium 133, potassium 5.9, creatinine 3.85. Physical examination: Gen: This is a 35-year-old female in no acute distress VS: reviewed HEENT: Head is atraumatic, normocephalic. Pupils equal, round. Sclerae is anicteric. NECK: Supple. No JVD. Carotid upstroke is normal. No bruit. LUNGS: No crackles or rhonchi. No intercostal retractions. HEART: Reveals 1st and 2nd heart sounds. An S4 is heard. ABDOMEN: Soft No tenderness. EXTREMITIES: No pedal edema. Dorsalis pedis palpable bilaterally. NEUROLOGICAL: Patient is awake, alert and oriented x3. Assessment: Hypertensive urgency Acute pulmonary edema End-stage renal disease on hemodialysis History of pericardial effusion, stable Elevated liver function test Chronic diastolic heart failure Hypertension Hyperlipidemia History of sinus tachycardia Diabetes mellitus type 1 since age 6 Plan: Continue patient's home cardiac medications: Aspirin, Coreg 50 mg twice daily, clonidine 0.3 mg 3 times daily including Procardia XL 90 mg every 12 hours Hold atorvastatin due to elevated liver function test No medication adjustments made today. Further recommendations to follow based upon clinical course Nurse practitioner note has been reviewed, I agree with documented findings and plan of care. Patient was seen and examined. Objective - Vital Signs Vital signs: Vital Signs Temp 97.9 F 05/03/25 04:00 Pulse 83 05/03/25 07:57 Resp 16 05/03/25 04:00 BP 148/83 05/03/25 04:00 Pulse Ox 98 05/03/25 07:57 FiO2 28 05/01/25 08:04 Intake & Output 05/02/25 05/03/25 05/03/25 18:59 06:59 18:59 Intake Total 1068 460 Output Total 5600 Balance -4532 460 Weight 68.039 kg 68.8 kg Intake: IV 10 20 Invasive Line 1 10 20 Oral 658 440 Hemodialysis 400 Output: Hemodialysis 3000 Hemodialysis Net Amount 2600 Other: # Voids 1 - Labs CBC & Chem 7: 05/03/25 05:30 05/03/25 05:30 Labs: Abnormal Lab Results - Last 24 Hours (Table) 05/02/25 05/02/25 05/02/25 Range/Units 11:33 12:22 12:51 RBC (4.10-5.20) 10*6/uL Hgb (12.0-15.0) g/dL Hct (37.2-46.3) % MCV (80.0-97.0) fL MCH (27.0-32.0) pg Eosinophils # (0.04-0.35) 10*3/uL Sodium (137-145) mmol/L Potassium (3.5-5.1) mmol/L Chloride (98-107) mmol/L Carbon Dioxide (22-30) mmol/L BUN (7-17) mg/dL Creatinine (0.52-1.04) mg/dL Glucose (74-99) mg/dL POC Glucose (mg/dL) 53 L 60 L 118 H (70-110) mg/dL ALT (4-34) U/L Alkaline Phosphatase (38-126) U/L 05/02/25 05/02/25 05/03/25 Range/Units 16:25 20:16 05:30 RBC 3.25 L (4.10-5.20) 10*6/uL Hgb 10.6 L (12.0-15.0) g/dL Hct 32.7 L (37.2-46.3) % MCV 100.6 H (80.0-97.0) fL MCH 32.6 H (27.0-32.0) pg Eosinophils # 1.40 H (0.04-0.35) 10*3/uL Sodium (137-145) mmol/L Potassium (3.5-5.1) mmol/L Chloride (98-107) mmol/L Carbon Dioxide (22-30) mmol/L BUN (7-17) mg/dL Creatinine (0.52-1.04) mg/dL Glucose (74-99) mg/dL POC Glucose (mg/dL) 293 H 179 H (70-110) mg/dL ALT (4-34) U/L Alkaline Phosphatase (38-126) U/L 05/03/25 05/03/25 Range/Units 05:30 05:41 RBC (4.10-5.20) 10*6/uL Hgb (12.0-15.0) g/dL Hct (37.2-46.3) % MCV (80.0-97.0) fL MCH (27.0-32.0) pg Eosinophils # (0.04-0.35) 10*3/uL Sodium 133 L (137-145) mmol/L Potassium 5.9 H (3.5-5.1) mmol/L Chloride 94 L (98-107) mmol/L Carbon Dioxide 31 H (22-30) mmol/L BUN 36 H (7-17) mg/dL Creatinine 3.85 H (0.52-1.04) mg/dL Glucose 369 H (74-99) mg/dL POC Glucose (mg/dL) 398 H (70-110) mg/dL ALT 67 H (4-34) U/L Alkaline Phosphatase 204 H (38-126) U/L Microbiology - Last 24 Hours (Table) 04/29/25 12:00 Urine Culture - Final Urine,Voided Enterobacter aerogenes Enterococcus faecium VRE 04/29/25 23:02 Blood Culture - Preliminary Blood
--- NOTE | 2025-05-03 12:49 | P.PN ---
Subjective Progress Note Date: 05/03/25 Principal diagnosis: Respiratory failure. This is a 35-year-old female with history of multiple medical problems, familiar to our service, known history of type 1 diabetes, end-stage renal disease on hemodialysis Tuesdays and Saturdays. Patient presented to the ER tod with mostly 1 with a history of shortness of breath. EMS arrived on the scene, patient had normal O2 saturation, she was having difficulty breathing, placed on CPAP, she was also noted to be quite hypertensive. Patient states that her last hemodialysis was done yesterday. Brought into the ER, chest x-ray showed evidence of pulmonary edema, her blood pressure was extremely elevated, as high as 240/110. In addition to her elevated blood pressure, patient was noted to be in pulmonary edema, and she was found to have hyperkalemia with potassium as high as 6.7. Patient was started on Lokelma and given treatment as per protocol for hyperkalemia nephrology was notified, the patient is to start on dialysis. In the meantime I recommended Cleviprex to be titrated for blood pressure in the 70-1 80 systolic range. Patient denies any headaches, she has mostly shortness of breath, no chest pain, no fever no chills no hemoptysis. No nausea no vomiting no abdominal pain. The patient herself is not a great historian. Progress note dated April 30, 2025. The patient was seen yesterday in consultation. She came in with shortness of breath. Patient needed emergent hemodialysis, which did take place, April 29. She seen today, in the emergency department, room 10. She is currently on 2 L nasal cannula. She is not receiving any IV fluids. She did use BiPAP, with settings of 10/5, and 40%. The patient was initially scheduled to go to the intensive care unit, but she can be downgraded. She is very stable. He is sitting up in bed, in no distress. Current laboratory data includes a white count 9.5, hemoglobin 9.8, hematocrit 29.7, and a platelet count of 219,000. Sodium 132, potassium 5.2, chloride 92, CO2 27, anion gap 13, BUN 38, creatinine 4. Glucose is 234. Drug screen was positive for opiates, oxycodone, and marijuana. Chest x-ray showed cardiomegaly, with mild pulmonary vascular congestion. Progress note dated May 01, 2025. The patient is seen today in the emergency room, bed #16. The patient was about to receive hemodialysis. She was going to be transferred to the floor, but apparently developed elevated blood pressure, was started on Cleviprex, at 3 mg an hour. She gets she is getting nasal O2 at 3 L, and we increase her Procardia to 90 mg twice a day. We are hoping the combination of hemodialysis, and the increase of her Procardia, will control her blood pressure, and allow us to wean her off the Cleviprex. Hopefully, if that is the case, should go to the general medical floor. Current labs include a white count of 7.14, hemoglobin 10.2, hematocrit 31.2, and a platelet count that is 258,000. Sodium 132, potassium 5.6, chlorides 92, CO2 29, BUN 30, creatinine 3.75. Glucose is 337. Progress note dated May 02, 2025. 35-year-old female well-known to our service. She is seen in the emergency department, room 10. The patient was currently on 2 L of oxygen. No IV fluids. Her blood pressure was better controlled. The patient was scheduled to come to the intensive care unit, but can be downgraded to 3 S. She has no complaints today. White count was 6.88, hemoglobin 9.6, hematocrit 29.3, platelet count 231,000. Sodium 130, potassium 5.9, chlorides 90, CO2 29, anion gap 11, BUN 34, and creatinine 3.84. Glucose is 417. Urine reveals gram-negative bacilli. No recent chest x-ray. Progress note dated May 03, 2025. 35-year-old female well-known to our service. The patient was admitted with renal failure, hyperkalemia, and hypertension. Currently, she is seen in room 352. She is getting hemodialysis today. The plan is to remove 4 L. Is getting nasal cannula oxygen, 1 L. She is not receiving any IV fluids. Clinically, she is doing much better. She is sitting up in bed, without any respiratory difficulty or distress. Current labs include a white count of 7.5, hemoglobin 10.6, hematocrit 32.7, and a platelet count of 262,000. Sodium 133, potassium 5.9, chloride 94, CO2 31, BUN 36, creatinine 3.85. Glucose is 112. Urine samples from April 29 shows evidence of both Enterobacter species and Enterococcu s species. Chest x-ray shows cardiomegaly, with mild pulmonary vascular congestion. Objective - Vital Signs Vital signs: Vital Signs Temp 98.1 F 05/03/25 12:00 Pulse 80 05/03/25 12:31 Resp 16 05/03/25 12:00 BP 156/90 05/03/25 12:00 Pulse Ox 95 05/03/25 12:00 FiO2 28 05/01/25 08:04 Intake & Output 05/02/25 05/03/25 05/03/25 18:59 06:59 18:59 Intake Total 1068 460 190 Output Total 5600 Balance -4532 460 190 Weight 68.039 kg 68.8 kg Intake: IV 10 20 10 Invasive Line 1 10 20 10 Oral 658 440 180 Hemodialysis 400 Output: Hemodialysis 3000 Hemodialysis Net Amount 2600 Other: # Voids 1 - Exam No acute distress, oriented 3. Currently on 1 L nasal cannula. HEENT examination is grossly unremarkable. Mucous membranes are moist. No oral lesions. Neck supple. Full range of motion. No adenopathy thyromegaly or neck vein distention. Cardiovascular examination reveals regular rhythm rate. S1-S2 normal. No S3 or S4. No discernible murmur noted. Lungs reveal clear bilateral breath sounds. No wheezes. No rhonchi. No crackles. Breath sounds are improved. Abdomen soft bowel sounds are heard. No masses or tenderness. Extremities are intact. Trace edema. No cyanosis or clubbing. Skin is without rash or lesion. Neurologic examination is brief but nonfocal. - Labs CBC & Chem 7: 05/03/25 05:30 05/03/25 05:30 Labs: Abnormal Lab Results - Last 24 Hours (Table) 05/02/25 05/02/25 05/02/25 Range/Units 12:51 16:25 20:16 RBC (4.10-5.20) 10*6/uL Hgb (12.0-15.0) g/dL Hct (37.2-46.3) % MCV (80.0-97.0) fL MCH (27.0-32.0) pg Eosinophils # (0.04-0.35) 10*3/uL Sodium (137-145) mmol/L Potassium (3.5-5.1) mmol/L Chloride (98-107) mmol/L Carbon Dioxide (22-30) mmol/L BUN (7-17) mg/dL Creatinine (0.52-1.04) mg/dL Glucose (74-99) mg/dL POC Glucose (mg/dL) 118 H 293 H 179 H (70-110) mg/dL ALT (4-34) U/L Alkaline Phosphatase (38-126) U/L 05/03/25 05/03/25 05/03/25 Range/Units 05:30 05:30 05:41 RBC 3.25 L (4.10-5.20) 10*6/uL Hgb 10.6 L (12.0-15.0) g/dL Hct 32.7 L (37.2-46.3) % MCV 100.6 H (80.0-97.0) fL MCH 32.6 H (27.0-32.0) pg Eosinophils # 1.40 H (0.04-0.35) 10*3/uL Sodium 133 L (137-145) mmol/L Potassium 5.9 H (3.5-5.1) mmol/L Chloride 94 L (98-107) mmol/L Carbon Dioxide 31 H (22-30) mmol/L BUN 36 H (7-17) mg/dL Creatinine 3.85 H (0.52-1.04) mg/dL Glucose 369 H (74-99) mg/dL POC Glucose (mg/dL) 398 H (70-110) mg/dL ALT 67 H (4-34) U/L Alkaline Phosphatase 204 H (38-126) U/L 05/03/25 Range/Units 11:16 RBC (4.10-5.20) 10*6/uL Hgb (12.0-15.0) g/dL Hct (37.2-46.3) % MCV (80.0-97.0) fL MCH (27.0-32.0) pg Eosinophils # (0.04-0.35) 10*3/uL Sodium (137-145) mmol/L Potassium (3.5-5.1) mmol/L Chloride (98-107) mmol/L Carbon Dioxide (22-30) mmol/L BUN (7-17) mg/dL Creatinine (0.52-1.04) mg/dL Glucose (74-99) mg/dL POC Glucose (mg/dL) 112 H (70-110) mg/dL ALT (4-34) U/L Alkaline Phosphatase (38-126) U/L Microbiology - Last 24 Hours (Table) 04/29/25 12:00 Urine Culture - Final Urine,Voided Enterobacter aerogenes Enterococcus faecium VRE 04/29/25 23:02 Blood Culture - Preliminary Blood Assessment and Plan Assessment: Hypertensive emergency with pulmonary edema. End-stage renal disease requiring hemodialysis. Acute hyperkalemia secondary to renal failure. Possible gram-negative urinary tract infection, secondary to both Enterobacter and Enterococcus species. Left upper extremity pain near graft site, Doppler revealed patent graft. Diabetes mellitus, insulin-dependent, type I. Anemia of chronic disease. History of CVA/TIA. History of optic neuritis. Hypothyroidism. History of depression. History of seizure disorder. Plan: Plan dated April 30, 2025. The patient is seen today, down in the emergency department, room 10. She sitting up in bed. The patient is on 2 L. No respiratory distress. No conversational dyspnea. No use of accessory muscles. She had emergent hemodialysis on April 29. She did use BiPAP last night, with settings of 10/5, 40%. The patient is currently on 2 L. All labs, x-rays, and medications are reviewed. The patient no longer is a candidate for the intensive care unit, and can be downgraded. We will continue to follow make recommendations were appropriate. Prognosis is guarded. Dictation was produced using [email or web address] dictation software. Please excuse any grammatical, word or spelling errors. Plan dated May 01, 2025. We are hoping the patient could go to the general medical floor, but this morning developed significant hypertension, and required Cleviprex, running at 3 mg an hour. We will increase her Procardia to 90 mg every 12. The patient is also going to have hemodialysis today, with the goal of removing 4 L of fluid. Hopefully, her blood pressure will come under control, and the patient can go to the general medical floor. Labs, x-rays, and all medications are reviewed. Clinically, the patient is doing about the same. She is not in any respiratory distress. She is on 3 L of oxygen. We will continue to follow. Prognosis is guarded. Dictation was produced using [employer] software. Please excuse any grammatical, word or spelling errors. Plan dated May 02, 2025. The patient was seen in the emergency department, room 10. She is currently on 2 L nasal O2. Her blood pressure is much better controlled. Labs, x-rays, and all medications are reviewed. The patient is stable to be transferred to the 3 S. floor. She currently does not need the intensive care unit. In addition, there is gram-negative bacteria in her urine. The patient is given Levaquin 250 mg daily. It can be adjusted as per pharmacy. Additional recommendations and suggestions are forthcoming. Prognosis is guarded. Dictation was produced using [employer] software. Please excuse any grammatical, word or spelling errors. Plan dated May 03, 2025. The patient is seen today in room 352. She is currently undergoing hemodialysis. The plan is to remove 4 L of fluid. She is currently on nasal O2 at 1 L. She is not receiving any IV fluids. Labs, x-rays, and all medications are reviewed. We will continue to follow her, make recommendations along the way. Prognosis is certainly guarded. We placed the patient on Levaquin empirically, for suspected urinary tract infection. The patient should be seen by infectious diseases, to guide antibiotic therapy. Additional recommendations and suggestions are forthcoming. We will continue to follow. Dictation was produced using [employer] software. Please excuse any grammatical, word or spelling errors. Time with Patient: Less than 30
--- NOTE | 2025-05-03 13:06 | P.PN ---
Subjective Progress Note Date: 05/03/25 Patient is a 35-year-old female being seen as a follow-up for end-stage renal disease. No acute complaints. Was seen during dialysis. Vital signs are stable. General: No acute distress. On nasal cannula. HEENT: Head exam is unremarkable. LUNGS: No audible rhonchi or wheezes. HEART: Rate and Rhythm are regular. ABDOMEN: Nontender to plapation EXTREMITITES: no edema noted. Objective - Vital Signs Vital signs: Vital Signs Temp 97.9 F 05/03/25 04:00 Pulse 83 05/03/25 07:57 Resp 16 05/03/25 04:00 BP 148/83 05/03/25 04:00 Pulse Ox 98 05/03/25 07:57 FiO2 28 05/01/25 08:04 Intake & Output 05/02/25 05/03/25 05/03/25 18:59 06:59 18:59 Intake Total 1068 460 Output Total 5600 Balance -4532 460 Weight 68.039 kg 68.8 kg Intake: IV 10 20 Invasive Line 1 10 20 Oral 658 440 Hemodialysis 400 Output: Hemodialysis 3000 Hemodialysis Net Amount 2600 Other: # Voids 1 - Labs CBC & Chem 7: 05/03/25 05:30 05/03/25 05:30 Labs: Abnormal Lab Results - Last 24 Hours (Table) 05/02/25 05/02/25 05/02/25 Range/Units 11:33 12:22 12:51 RBC (4.10-5.20) 10*6/uL Hgb (12.0-15.0) g/dL Hct (37.2-46.3) % MCV (80.0-97.0) fL MCH (27.0-32.0) pg Eosinophils # (0.04-0.35) 10*3/uL Sodium (137-145) mmol/L Potassium (3.5-5.1) mmol/L Chloride (98-107) mmol/L Carbon Dioxide (22-30) mmol/L BUN (7-17) mg/dL Creatinine (0.52-1.04) mg/dL Glucose (74-99) mg/dL POC Glucose (mg/dL) 53 L 60 L 118 H (70-110) mg/dL ALT (4-34) U/L Alkaline Phosphatase (38-126) U/L 05/02/25 05/02/25 05/03/25 Range/Units 16:25 20:16 05:30 RBC 3.25 L (4.10-5.20) 10*6/uL Hgb 10.6 L (12.0-15.0) g/dL Hct 32.7 L (37.2-46.3) % MCV 100.6 H (80.0-97.0) fL MCH 32.6 H (27.0-32.0) pg Eosinophils # 1.40 H (0.04-0.35) 10*3/uL Sodium (137-145) mmol/L Potassium (3.5-5.1) mmol/L Chloride (98-107) mmol/L Carbon Dioxide (22-30) mmol/L BUN (7-17) mg/dL Creatinine (0.52-1.04) mg/dL Glucose (74-99) mg/dL POC Glucose (mg/dL) 293 H 179 H (70-110) mg/dL ALT (4-34) U/L Alkaline Phosphatase (38-126) U/L 05/03/25 05/03/25 Range/Units 05:30 05:41 RBC (4.10-5.20) 10*6/uL Hgb (12.0-15.0) g/dL Hct (37.2-46.3) % MCV (80.0-97.0) fL MCH (27.0-32.0) pg Eosinophils # (0.04-0.35) 10*3/uL Sodium 133 L (137-145) mmol/L Potassium 5.9 H (3.5-5.1) mmol/L Chloride 94 L (98-107) mmol/L Carbon Dioxide 31 H (22-30) mmol/L BUN 36 H (7-17) mg/dL Creatinine 3.85 H (0.52-1.04) mg/dL Glucose 369 H (74-99) mg/dL POC Glucose (mg/dL) 398 H (70-110) mg/dL ALT 67 H (4-34) U/L Alkaline Phosphatase 204 H (38-126) U/L Microbiology - Last 24 Hours (Table) 04/29/25 12:00 Urine Culture - Final Urine,Voided Enterobacter aerogenes Enterococcus faecium VRE 04/29/25 23:02 Blood Culture - Preliminary Blood Assessment and Plan Assessment: 1. End-stage renal disease maintained on hemodialysis on Wednesday schedule. 2. Hyperkalemia secondary to chronic kidney disease and hyperglycemia. Improved postdialysis. 3. Volume overload. Left ventricular EF at 60%, RVSP 44, moderate tricuspid regurgitation, small pericardial effusion without tamponade 4. Hypertensive emergency 5. Chronic kidney disease mineral bone disease maintained on PhosLo. 6. Diabetes mellitus 7. History of pericardial effusion Plan: Hemodialysis today. Maintain low-salt diet and fluid restriction. Maintain Lokelma. Tight blood glucose control. Avoid hydralazine due to history of pericardial effusion. Blood pressure well-controlled when euvolemic Continue nifedipine 60 mg q12hr, Coreg 50 mg PO BID. Continue clonidine 0.3 mg PO TID, hold if BP < 120/80. Minoxidil discontinued. I have seen and examined the patient with resident and agree with A&P as written. BP in systolic 90s. Patient seen during HD.
[2025-05-03 13:26] LABS: Glucose,Whole Blood 180 mg/dL (70-110)
[2025-05-03 16:20] LABS: Glucose,Whole Blood 174 mg/dL (70-110)
--- NOTE | 2025-05-03 19:09 | P.PN ---
Subjective Progress Note Date: 05/03/25 This is a 35-year-old female who was recently admitted with hypertensive urgency along with CHF and cough with sputum production being closely monitored. Multiple consultations including pulmonary, cardiology, nephrology following and patient is maintained on hemodialysis. Patient does receive hemodialysis 4 days weekly and will continue. Patient's reporting to feeling slightly improved and patient did have a urine culture that is showing positive for Enterococcus faecium VRE and will repeat and also consult infectious disease and appreciate input and recommendations. Patient was not reporting urinary symptoms including pain or burning with urination. Patient's blood sugars have been variable and will continue to monitor closely and adjust insulins accordingly. Patient encouraged to increase activity as tolerated Review of systems: Constitutional: No reports of fatigue, fever, or chills Cardiovascular: No reports of chest pain or palpitations Respiratory: No reports of shortness of breath, reports continued cough GI: reports of occasional nausea, no reports of vomiting, loose stools : No reports of dysuria or retention Neurovascular: reports of generalized weakness All medications have been reviewed PHYSICAL EXAMINATION: GENERAL: The patient is alert and oriented x4, Well developed, elderly appearing, chronically ill-appearing, edematous throughout HEENT: Pupils are round and equally reacting to light. EOMI. no scleral icterus. No conjunctival pallor. Normocephalic, atraumatic. No pharyngeal erythema. No thyromegaly. CARDIOVASCULAR: S1 and S2 muffled PULMONARY: diminished breath sounds bilaterally with no wheezing or rhonchi noted. Bronchial congestion noted ABDOMEN: soft. Nontender on exam. non-distended, normoactive bowel sounds. No palpable organomegaly. MUSCULOSKELETAL: No joint swelling or deformity. EXTREMITIES: No cyanosis, clubbing, or pedal edema. NEUROLOGICAL: Gross neurological examination did not reveal any focal deficits. Diffuse weakness SKIN: No rashes. Assessment: Congestive heart failure acute exacerbation with acute on chronic diastolic dysfunction Acute bronchitis, tracheobronchitis, purulent Hypertensive urgency and accelerated hypertension Positive urine culture with Enterococcus faecium VRE, possibly asymptomatic bacteriuria as patient was denying symptoms of pain or burning or frequency with urination History of small to moderate pericardial effusion recently Diabetes mellitus, type I, brittle diabetic with extremely uncontrolled hyper and hypoglycemia Gastroparesis history Seizure disorder GI prophylaxis DVT prophylaxis Full code Plan: Recommend to continue with current medications and management with consultations following Patient did have a positive urine for Enterococcus VRE and will consult infe ctious disease and appreciate input and recommendations. Patient had been maintained on ceftriaxone for bronchial cough and pulmonary is following and will continue current regimen Patient to continue on dialysis 4 days weekly with nephrology following Blood pressures have improved and on the lower side, will discontinue Norvasc Patient receiving dialysis today Encouraged increased activity as tolerated Overall prognosis is guarded The impression and plan of care has been dictated by Margie Urbina, nurse practitioner as directed. Dr. Dustin MD I have performed a history and examination and MDM of this patient, discussed the same with the dictator, and agree with the dictator's assessment and plan as written ,documented as a scribe. Based on total visit time, I have performed more than 50% of the visit. Any additional findings or plans will be noted. Objective - Vital Signs Vital signs: Vital Signs Temp 98.1 F 05/03/25 12:00 Pulse 80 05/03/25 12:31 Resp 16 05/03/25 12:00 BP 156/90 05/03/25 12:00 Pulse Ox 95 05/03/25 12:00 FiO2 28 05/01/25 08:04 Intake & Output 05/02/25 05/03/25 05/03/25 18:59 06:59 18:59 Intake Total 1068 460 190 Output Total 5600 Balance -4532 460 190 Weight 68.039 kg 68.8 kg Intake: IV 10 20 10 Invasive Line 1 10 20 10 Oral 658 440 180 Hemodialysis 400 Output: Hemodialysis 3000 Hemodialysis Net Amount 2600 Other: # Voids 1 - Labs CBC & Chem 7: 05/03/25 05:30 05/03/25 05:30 Labs: Abnormal Lab Results - Last 24 Hours (Table) 05/02/25 05/02/25 05/03/25 Range/Units 16:25 20:16 05:30 RBC 3.25 L (4.10-5.20) 10*6/uL Hgb 10.6 L (12.0-15.0) g/dL Hct 32.7 L (37.2-46.3) % MCV 100.6 H (80.0-97.0) fL MCH 32.6 H (27.0-32.0) pg Eosinophils # 1.40 H (0.04-0.35) 10*3/uL Sodium (137-145) mmol/L Potassium (3.5-5.1) mmol/L Chloride (98-107) mmol/L Carbon Dioxide (22-30) mmol/L BUN (7-17) mg/dL Creatinine (0.52-1.04) mg/dL Glucose (74-99) mg/dL POC Glucose (mg/dL) 293 H 179 H (70-110) mg/dL ALT (4-34) U/L Alkaline Phosphatase (38-126) U/L 05/03/25 05/03/25 05/03/25 Range/Units 05:30 05:41 11:16 RBC (4.10-5.20) 10*6/uL Hgb (12.0-15.0) g/dL Hct (37.2-46.3) % MCV (80.0-97.0) fL MCH (27.0-32.0) pg Eosinophils # (0.04-0.35) 10*3/uL Sodium 133 L (137-145) mmol/L Potassium 5.9 H (3.5-5.1) mmol/L Chloride 94 L (98-107) mmol/L Carbon Dioxide 31 H (22-30) mmol/L BUN 36 H (7-17) mg/dL Creatinine 3.85 H (0.52-1.04) mg/dL Glucose 369 H (74-99) mg/dL POC Glucose (mg/dL) 398 H 112 H (70-110) mg/dL ALT 67 H (4-34) U/L Alkaline Phosphatase 204 H (38-126) U/L Microbiology - Last 24 Hours (Table) 04/29/25 12:00 Urine Culture - Final Urine,Voided Enterobacter aerogenes Enterococcus faecium VRE 04/29/25 23:02 Blood Culture - Preliminary Blood
[2025-05-03 20:09] LABS: Glucose,Whole Blood 149 mg/dL (70-110)
[2025-05-04 05:52] LABS: Glucose,Whole Blood 230 mg/dL (70-110)
[2025-05-04 07:22] VITALS: BMI 27.6
[2025-05-04 07:40] LABS: HCT 33.7 % (37.2-46.3); HGB 11.1 g/dL (12.0-15.0); MCH 32.8 pg (27.0-32.0); MCHC 32.9 g/dL (32.0-37.0); MCV 99.7 fL (80.0-97.0); Mean Platelet Volume 10.1 fL (9.5-12.2); Platelet Count 225 10*3/uL (140-440); RBC 3.38 10*6/uL (4.10-5.20); RDW 17.2 % (11.5-14.5)
[2025-05-04 09:07] LABS: ALT 54 U/L (4-34); AST 25 U/L (14-36); African American GFR (CKD) 17 (>60 ml/min/1.73 sqM); Albumin 4.2 g/dL (3.5-5.0); Alkaline Phosphatase 172 U/L (38-126); Anion Gap 9 mmol/L; Blood Urea Nitrogen 45 mg/dL (7-17); Calcium 9.7 mg/dL (8.4-10.2); Carbon Dioxide 29 mmol/L (22-30); Chloride 95 mmol/L (98-107); Glucose 258 mg/dL (74-99); Non-African American GFR(CKD) 15 (>60 ml/min/1.73 sqM); Sodium 133 mmol/L (137-145); Total Bilirubin 0.5 mg/dL (0.2-1.3); Total Protein 6.8 g/dL (6.3-8.2)
[2025-05-04] MEDS: NIFEdipine XL 90 MG TAB.ER.24 PO SCH (09:25)
[2025-05-04 09:33] LABS: Potassium 6.1 mmol/L (3.5-5.1)
[2025-05-04 11:18] LABS: Eosinophils # (M) 1.82 k/uL (0-0.7); Lymphocytes # (M) 1.42 k/uL (1.0-4.8); Monocytes # (M) 0.79 k/uL (0-1.0); Neutrophils # (M) 3.95 k/uL (1.3-7.7); Neutrophils % (M) 50 %; Nucleated Red Blood Cells 0 /100 WBC (0-0); Total Cells Counted 200
[2025-05-04 11:21] LABS: Anisocytosis (M) Present
[2025-05-04 11:25] LABS: Glucose,Whole Blood 101 mg/dL (70-110)
--- NOTE | 2025-05-04 12:07 | P.PN ---
Subjective Progress Note Date: 05/04/25 Patient is a 35-year-old female being seen as a follow-up for end-stage renal disease. Patient does not feel well and is complaining of headache. Vital signs are stable. General: No acute distress. On nasal cannula. HEENT: Head exam is unremarkable. LUNGS: No audible rhonchi or wheezes. HEART: Rate and Rhythm are regular. ABDOMEN: Nontender to plapation EXTREMITITES: no edema noted. Objective - Vital Signs Vital signs: Vital Signs Temp 97.8 F 05/04/25 04:00 Pulse 85 05/04/25 04:00 Resp 16 05/04/25 04:00 BP 171/95 05/04/25 04:00 Pulse Ox 100 05/04/25 04:00 FiO2 28 05/01/25 08:04 Intake & Output 05/03/25 05/04/25 05/04/25 18:59 06:59 18:59 Intake Total 1120 267 Output Total 6192 Balance -5072 267 Weight 70.6 kg 70.6 kg Intake: IV 20 30 0.9 10 Invasive Line 1 20 20 Oral 600 237 Hemodialysis 500 Output: Hemodialysis 3346 Hemodialysis Net Amount 2846 Other: # Voids 0 # Bowel Movements 1 - Labs CBC & Chem 7: 05/04/25 06:46 05/04/25 06:46 Labs: Abnormal Lab Results - Last 24 Hours (Table) 05/03/25 05/03/25 05/03/25 Range/Units 11:16 13:24 16:18 POC Glucose (mg/dL) 112 H 180 H 174 H (70-110) mg/dL 05/03/25 05/04/25 Range/Units 20:08 05:49 POC Glucose (mg/dL) 149 H 230 H (70-110) mg/dL Microbiology - Last 24 Hours (Table) 05/02/25 11:13 Blood Culture - Preliminary Blood 04/29/25 23:02 Blood Culture - Preliminary Blood Assessment and Plan Assessment: Assessment: 1. End-stage renal disease maintained on hemodialysis on Wednesday schedule. 2. Hyperkalemia secondary to chronic kidney disease and hyperglycemia. Improved postdialysis. 3. Volume overload. Left ventricular EF at 60%, RVSP 44, moderate tricuspid regurgitation, small pericardial effusion without tamponade 4. Hypertensive emergency 5. Chronic kidney disease mineral bone disease maintained on PhosLo. 6. Diabetes mellitus 7. History of pericardial effusion Plan: Hemodialysis today, no UF. Maintain low-salt diet and fluid restriction. Increase Lokelma to 10 mg PO BID. Tight blood glucose control. Keep on strict renal diet. Avoid hydralazine due to history of pericardial effusion. Blood pressure well-controlled when euvolemic Continue clonidine 0.3 mg PO TID, hold if BP < 120/80. Minoxidil discontinued. I have seen and examined the patient with resident and agree with A&P as written. BP controlled. No UF today. Feels well currently.
--- NOTE | 2025-05-04 12:57 | P.PN ---
Subjective Progress Note Date: 05/04/25 Principal diagnosis: Respiratory failure. This is a 35-year-old female with history of multiple medical problems, familiar to our service, known history of type 1 diabetes, end-stage renal disease on hemodialysis Tuesdays and Saturdays. Patient presented to the ER tod with mostly 1 with a history of shortness of breath. EMS arrived on the scene, patient had normal O2 saturation, she was having difficulty breathing, placed on CPAP, she was also noted to be quite hypertensive. Patient states that her last hemodialysis was done yesterday. Brought into the ER, chest x-ray showed evidence of pulmonary edema, her blood pressure was extremely elevated, as high as 240/110. In addition to her elevated blood pressure, patient was noted to be in pulmonary edema, and she was found to have hyperkalemia with potassium as high as 6.7. Patient was started on Lokelma and given treatment as per protocol for hyperkalemia nephrology was notified, the patient is to start on dialysis. In the meantime I recommended Cleviprex to be titrated for blood pressure in the 70-1 80 systolic range. Patient denies any headaches, she has mostly shortness of breath, no chest pain, no fever no chills no hemoptysis. No nausea no vomiting no abdominal pain. The patient herself is not a great historian. Progress note dated April 30, 2025. The patient was seen yesterday in consultation. She came in with shortness of breath. Patient needed emergent hemodialysis, which did take place, April 29. She seen today, in the emergency department, room 10. She is currently on 2 L nasal cannula. She is not receiving any IV fluids. She did use BiPAP, with settings of 10/5, and 40%. The patient was initially scheduled to go to the intensive care unit, but she can be downgraded. She is very stable. He is sitting up in bed, in no distress. Current laboratory data includes a white count 9.5, hemoglobin 9.8, hematocrit 29.7, and a platelet count of 219,000. Sodium 132, potassium 5.2, chloride 92, CO2 27, anion gap 13, BUN 38, creatinine 4. Glucose is 234. Drug screen was positive for opiates, oxycodone, and marijuana. Chest x-ray showed cardiomegaly, with mild pulmonary vascular congestion. Progress note dated May 01, 2025. The patient is seen today in the emergency room, bed #16. The patient was about to receive hemodialysis. She was going to be transferred to the floor, but apparently developed elevated blood pressure, was started on Cleviprex, at 3 mg an hour. She gets she is getting nasal O2 at 3 L, and we increase her Procardia to 90 mg twice a day. We are hoping the combination of hemodialysis, and the increase of her Procardia, will control her blood pressure, and allow us to wean her off the Cleviprex. Hopefully, if that is the case, should go to the general medical floor. Current labs include a white count of 7.14, hemoglobin 10.2, hematocrit 31.2, and a platelet count that is 258,000. Sodium 132, potassium 5.6, chlorides 92, CO2 29, BUN 30, creatinine 3.75. Glucose is 337. Progress note dated May 02, 2025. 35-year-old female well-known to our service. She is seen in the emergency department, room 10. The patient was currently on 2 L of oxygen. No IV fluids. Her blood pressure was better controlled. The patient was scheduled to come to the intensive care unit, but can be downgraded to 3 S. She has no complaints today. White count was 6.88, hemoglobin 9.6, hematocrit 29.3, platelet count 231,000. Sodium 130, potassium 5.9, chlorides 90, CO2 29, anion gap 11, BUN 34, and creatinine 3.84. Glucose is 417. Urine reveals gram-negative bacilli. No recent chest x-ray. Progress note dated May 03, 2025. 35-year-old female well-known to our service. The patient was admitted with renal failure, hyperkalemia, and hypertension. Currently, she is seen in room 352. She is getting hemodialysis today. The plan is to remove 4 L. Is getting nasal cannula oxygen, 1 L. She is not receiving any IV fluids. Clinically, she is doing much better. She is sitting up in bed, without any respiratory difficulty or distress. Current labs include a white count of 7.5, hemoglobin 10.6, hematocrit 32.7, and a platelet count of 262,000. Sodium 133, potassium 5.9, chloride 94, CO2 31, BUN 36, creatinine 3.85. Glucose is 112. Urine samples from April 29 shows evidence of both Enterobacter species and Enterococcu s species. Chest x-ray shows cardiomegaly, with mild pulmonary vascular congestion. Progress note dated May 04, 2025. 35-year-old female well-known to our service. The patient is seen today in room 352. She is on 2 L of oxygen. Saturations are 100%. Is not receiving any IV fluids. The patient has no specific complaints today. Yesterday she had hemodialysis, and 4 L was removed. We initially saw the patient in the emergency department, for hypertension, and at that time, she required C leviprex. Current labs include a white count 7.9, hemoglobin 11.1, hematocrit 33.7, sodium 133, potassium 6.1, chloride 95, CO2 29, BUN 45, creatinine 3.83. Glucose was 101. Objective - Vital Signs Vital signs: Vital Signs Temp 97.8 F 05/04/25 04:00 Pulse 88 05/04/25 08:20 Resp 18 05/04/25 08:00 BP 129/79 05/04/25 08:00 Pulse Ox 96 05/04/25 08:11 FiO2 28 05/01/25 08:04 Intake & Output 05/03/25 05/04/25 05/04/25 18:59 06:59 18:59 Intake Total 1120 267 246 Output Total 6192 Balance -5072 267 246 Weight 70.6 kg 70.6 kg Intake: IV 20 30 10 0.9 10 Invasive Line 1 20 20 10 Oral 600 237 236 Hemodialysis 500 Output: Hemodialysis 3346 Hemodialysis Net Amount 2846 Other: # Voids 0 # Bowel Movements 1 - Exam No acute distress, oriented 3. Currently on 2 L nasal cannula. HEENT examination is grossly unremarkable. Mucous membranes are moist. No oral lesions. Neck supple. Full range of motion. No adenopathy thyromegaly or neck vein distention. Cardiovascular examination reveals regular rhythm rate. S1-S2 normal. No S3 or S4. No discernible murmur noted. Lungs reveal clear bilateral breath sounds. No wheezes. No rhonchi. No crackles. Breath sounds are improved. Abdomen soft bowel sounds are heard. No masses or tenderness. Extremities are intact. Trace edema. No cyanosis or clubbing. Skin is without rash or lesion. Neurologic examination is brief but nonfocal. - Labs CBC & Chem 7: 05/04/25 06:46 05/04/25 06:46 Labs: Abnormal Lab Results - Last 24 Hours (Table) 05/03/25 05/03/25 05/03/25 Range/Units 13:24 16:18 20:08 RBC (4.10-5.20) 10*6/uL Hgb (12.0-15.0) g/dL Hct (37.2-46.3) % MCV (80.0-97.0) fL MCH (27.0-32.0) pg Eosinophils # (Manual) (0-0.7) k/uL Sodium (137-145) mmol/L Potassium (3.5-5.1) mmol/L Chloride (98-107) mmol/L BUN (7-17) mg/dL Creatinine (0.52-1.04) mg/dL Glucose (74-99) mg/dL POC Glucose (mg/dL) 180 H 174 H 149 H (70-110) mg/dL ALT (4-34) U/L Alkaline Phosphatase (38-126) U/L 05/04/25 05/04/25 05/04/25 Range/Units 05:49 06:46 06:46 RBC 3.38 L (4.10-5.20) 10*6/uL Hgb 11.1 L (12.0-15.0) g/dL Hct 33.7 L (37.2-46.3) % MCV 99.7 H (80.0-97.0) fL MCH 32.8 H (27.0-32.0) pg Eosinophils # (Manual) 1.82 H (0-0.7) k/uL Sodium 133 L (137-145) mmol/L Potassium 6.1 H* (3.5-5.1) mmol/L Chloride 95 L (98-107) mmol/L BUN 45 H (7-17) mg/dL Creatinine 3.83 H (0.52-1.04) mg/dL Glucose 258 H (74-99) mg/dL POC Glucose (mg/dL) 230 H (70-110) mg/dL ALT 54 H (4-34) U/L Alkaline Phosphatase 172 H (38-126) U/L Microbiology - Last 24 Hours (Table) 05/02/25 11:13 Blood Culture - Preliminary Blood 04/29/25 23:02 Blood Culture - Preliminary Blood Assessment and Plan Assessment: Hypertensive emergency with pulmonary edema. End-stage renal disease requiring hemodialysis. Acute hyperkalemia secondary to renal failure. Possible gram-negative urinary tract infection, secondary to both Enterobacter and Enterococcus species. Left upper extremity pain near graft site, Doppler revealed patent graft. Diabetes mellitus, insulin-dependent, type I. Anemia of chronic disease. History of CVA/TIA. History of optic neuritis. Hypothyroidism. History of depression. History of seizure disorder. Plan: Plan dated April 30, 2025. The patient is seen today, down in the emergency department, room 10. She si tting up in bed. The patient is on 2 L. No respiratory distress. No conversational dyspnea. No use of accessory muscles. She had emergent hemodialysis on April 29. She did use BiPAP last night, with settings of 10/5, 40%. The patient is currently on 2 L. All labs, x-rays, and medications are reviewed. The patient no longer is a candidate for the intensive care unit, and can be downgraded. We will continue to follow make recommendations were appropriate. Prognosis is guarded. Dictation was produced using [employer] software. Please excuse any grammatical, word or spelling errors. Plan dated May 01, 2025. We are hoping the patient could go to the general medical floor, but this morning developed significant hypertension, and required Cleviprex, running at 3 mg an hour. We will increase her Procardia to 90 mg every 12. The patient is also going to have hemodialysis today, with the goal of removing 4 L of fluid. Hopefully, her blood pressure will come under control, and the patient can go to the general medical floor. Labs, x-rays, and all medications are reviewed. Clinically, the patient is doing about the same. She is not in any respiratory distress. She is on 3 L of oxygen. We will continue to follow. Prognosis is guarded. Dictation was produced using [employer] software. Please excuse any grammatical, word or spelling errors. Plan dated May 02, 2025. The patient was seen in the emergency department, room 10. She is currently on 2 L nasal O2. Her blood pressure is much better controlled. Labs, x-rays, and all medications are reviewed. The patient is stable to be transferred to the 3 S. floor. She currently does not need the intensive care unit. In addition, there is gram-negative bacteria in her urine. The patient is given Levaquin 250 mg daily. It can be adjusted as per pharmacy. Additional recommendations and suggestions are forthcoming. Prognosis is guarded. Dictation was produced using [employer] software. Please excuse any grammatical, word or spelling errors. Plan dated May 03, 2025. The patient is seen today in room 352. She is currently undergoing hemodialysis. The plan is to remove 4 L of fluid. She is currently on nasal O2 at 1 L. She is not receiving any IV fluids. Labs, x-rays, and all medications are reviewed. We will continue to follow her, make recommendations along the way. Prognosis is certainly guarded. We placed the patient on Levaquin empirically, for suspected urinary tract infection. The patient should be seen by infectious diseases, to guide antibiotic therapy. Additional recommendations and suggestions are forthcoming. We will continue to follow. Dictation was produced using [employer] software. Please excuse any grammatical, word or spelling errors. Plan dated May 04, 2025. The patient is seen today in room 352. The patient is sitting up in bed, actually not wearing her oxygen. She is not having any respiratory difficulty. 2 L saturation is documented at 100%. She denies any shortness of breath, cough, wheezing, chest tightness, or phlegm production. The patient had hemodialysis yesterday. 4 L of fluid was removed. Clinically, the patient is doing well. Moving forward, we will see the patient only as needed. No additional recommendations are made at this time. Dictation was produced using [employer] software. Please excuse any grammatical, word or spelling errors. Time with Patient: Less than 30
--- NOTE | 2025-05-04 13:11 | P.PN ---
Subjective Progress Note Date: 05/04/25 This is a 35-year-old female patient of Dr. Avila with past medical history of end-stage renal disease on hemodialysis. Patient presented to the hospital due to shortness of breath, hypoxia, severely elevated blood pressure at 240/110. Chest x-ray revealed pulmonary edema. Patient underwent dialysis and since that time her symptoms are improved. Patient does not make urine. Her initial potassium was 6.7. Patient was started on Cleviprex which improved her blood pressure control. Cardiology was consulted due to pulmonary edema and severe uncontrolled hypertension. Patient denies chest pain and shortness of breath is improved. Echocardiogram in December 2024 revealed normal LV systolic function, small to moderate amount of pericardial effusion. 05/01/2025 Patient is seen today in the emergency center waiting for a bed in the ICU. Blood pressure 153/91, heart rate 65, pulse ox 97% on 2 L nasal cannula. Patient has been afebrile. Echocardiogram reveals EF of 60%, RVSP 44, moderate TR, small pericardial effusion without tamponade. Results of the echocardiogram reviewed with the patient. Repeat blood work reveals hemoglobin 10.2, sodium 132, potassium 5.6, BUN 30 creatinine 3.75. AST 37, ALT 114, alkaline phosphatase 198. Patient continues to have improvement of her shortness of breath. 05/02/2025 Patient is seen today is the ER and has been downgraded to CSU. She is off Cleviprex and BP readings are improved. Blood pressure 112/62, heart rate in the 60s and 70s, pulse ox 90% on 2 L nasal cannula. Repeat blood work reveals WBC 6.8, hemoglobin 9.6, BUN 34 creatinine 3.84, sodium 130, potassium 5.9. Repeat chest x-ray reveals cardiomegaly and mild pulmonary vascular congestion. 05/03/2025 Patient is seen today on the cardiac stepdown unit. She is receiving hemo dialysis this morning. Blood pressure 148/83, heart rate 84, pulse ox 99% on 1 L nasal cannula. She denies chest pain or chest pressure. Repeat blood work reveals hemoglobin 10.6, sodium 133, potassium 5.9, creatinine 3.85. 05/04/2025 Patient seen and examined patient is complaining of heart rate racing but on telemetry she has been running in the 70s and 80s. She also complains of headache. Blood pressure readings are elevated for which Procardia will be increased. Blood pressure 121/95, heart rate 85, pulse ox 100% on 2 L nasal cannula. Physical examination: Gen: This is a 35-year-old female in no acute distress VS: reviewed HEENT: Head is atraumatic, normocephalic. Pupils equal, round. Sclerae is anicteric. NECK: Supple. No JVD. Carotid upstroke is normal. No bruit. LUNGS: No crackles or rhonchi. No intercostal retractions. HEART: Reveals 1st and 2nd heart sounds. An S4 is heard. ABDOMEN: Soft No tenderness. EXTREMITIES: No pedal edema. Dorsalis pedis palpable bilaterally. NEUROLOGICAL: Patient is awake, alert and oriented x3. Assessment: Hypertensive urgency Acute pulmonary edema End-stage renal disease on hemodialysis History of pericardial effusion, stable Elevated liver function test Chronic diastolic heart failure Hypertension Hyperlipidemia History of sinus tachycardia Diabetes mellitus type 1 since age 6 Plan: Continue patient's home cardiac medications: Aspirin, Coreg 50 mg twice daily, clonidine 0.3 mg 3 times daily, Imdur 120 mg daily Increase Procardia XL 90 mg every 12 hours Hold atorvastatin due to elevated liver function test, resume when appropriate Cardiology will sign off this case and follow on an as-needed basis. Please reconsult for any new concerns. Patient may follow-up in the office with Dr. Avila in one to 2 weeks. Nurse practitioner note has been reviewed, I agree with documented findings and plan of care. Patient was seen and examined. Objective - Vital Signs Vital signs: Vital Signs Temp 97.8 F 05/04/25 04:00 Pulse 88 05/04/25 08:20 Resp 16 05/04/25 04:00 BP 171/95 05/04/25 04:00 Pulse Ox 96 05/04/25 08:11 FiO2 28 05/01/25 08:04 Intake & Output 05/03/25 05/04/25 05/04/25 18:59 06:59 18:59 Intake Total 1120 267 Output Total 6192 Balance -5072 267 Weight 70.6 kg 70.6 kg Intake: IV 20 30 0.9 10 Invasive Line 1 20 20 Oral 600 237 Hemodialysis 500 Output: Hemodialysis 3346 Hemodialysis Net Amount 2846 Other: # Voids 0 # Bowel Movements 1 - Labs CBC & Chem 7: 05/04/25 06:46 05/04/25 06:46 Labs: Abnormal Lab Results - Last 24 Hours (Table) 05/03/25 05/03/25 05/03/25 Range/Units 11:16 13:24 16:18 POC Glucose (mg/dL) 112 H 180 H 174 H (70-110) mg/dL 05/03/25 05/04/25 Range/Units 20:08 05:49 POC Glucose (mg/dL) 149 H 230 H (70-110) mg/dL Microbiology - Last 24 Hours (Table) 05/02/25 11:13 Blood Culture - Preliminary Blood 04/29/25 23:02 Blood Culture - Preliminary Blood
[2025-05-04 16:13] LABS: Glucose,Whole Blood 88 mg/dL (70-110)
[2025-05-04 20:04] LABS: Glucose,Whole Blood 146 mg/dL (70-110)
[2025-05-04] MEDS: SODIUM ZIRCONIUM CYCLOSILICATE 10 GM PACKET PO SCH (20:45)
--- NOTE | 2025-05-04 22:30 | P.CONS ---
History of Present Illness - Reason for Consult Consult date: 05/04/25 UTI, positive urine culture Requesting physician: Margie Urbina - Chief Complaint Shortness of breath x few days - History of Present Illness Patient is a 35-year-old female with a past medical history significant for Diabetes Mellitus, GERD/Reflux, Hypertension, Renal Disease, Seizure Disorder, Thyroid Disorder with multiple admissions at this facility presenting to the hospital about 5 days ago on 04/29/2025 for evaluation of increasing shortness of breath patient hardly makes any urine however she did have a UA obtained on admission that was negative for leukocyte esterase nitrate only 2 WBC patient did have mild white count of 1.7 which subsequently has normalized BUN and creatinine has been elevated with a history of renal failure on dialysis urine testing was positive for opiates oxycodone and marijuana patient did have a chest x-ray on admission mild pulmonary vascular congestion last chest x-ray on 05/02/2025 cardiomegaly and mild pulmonary vascular congestion patient urine culture came back positive with Enterobacter aeruginosa and VRE that has prompted this consultation patient was complaining of suprapubic discomfort and painful urination however she hardly makes any urine and has not peed since admission to the hospital Review of Systems Positive point and negatives has been mentioned in the HPI, complete review of systems was performed and all other systems are negative Past Medical History Past Medical History: Diabetes Mellitus, GERD/Reflux, Hypertension, Renal Disease, Seizure Disorder, Thyroid Disorder Additional Past Medical History / Comment(s): Neuropathy, last seizure 2020, gastroparesis, headaches with dialysis, states "fast heart rate" since giving ., receives Hemodialysis Wednesday- and Saturdays at [facility] right chest hemodialysis catheter., severe HTN, hx of c-diff 2013., 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 Past Anesthesia/Blood Transfusion Reactions: Previous Problems w/ Anesthesia Additional Past Anesthesia/Blood Transfusion Reaction / Comm: confusion Past Psychological History: Anxiety, Depression Smoking Status: Former smoker Past Alcohol Use History: None Reported Additional Past Alcohol Use History / Comment(s): Patient states she quick about a week ago. Past Drug Use History: Marijuana Additional Drug Use History / Comment(s): Patient states, "I haven't smoke marijauna in months." - Past Family History Father History Unknown: Yes Family Medical History: Unable to Obtain Mother History Unknown: Yes Family Medical History: No Reported History Grandfather History Unknown: Yes Family Medical History: Coronary Artery Disease (CAD) Additional Family Medical History / Comment(s): Diabetes mellitus type 2 Medications and Allergies Home Medications Medication Instructions Recorded Confirmed Type Docusate [Colace] 100 mg PO DAILY@0800 02/05/24 04/29/25 History Lidocaine 4% Patch 1 patch TOPICAL DAILY@79902/05/24 04/29/25 History Ipratropium-Albuterol Nebulize 3 ml INHALATION RT-TID PRN each 02/14/24 04/29/25 Rx [Duoneb 0.5 mg-3 mg/3 ml Soln] polyethylene glycoL 3350 [Miralax] 17 gm PO AC-LUNCH #527 gm 02/14/24 04/29/25 R x Acetaminophen [Tylenol] 650 mg PO Q4H PRN 02/18/24 04/29/25 History Biotene Dry Mouth/Throat 10 ml PO BID PRN 02/18/24 04/29/25 History Melatonin 1 mg PO HS tab 02/25/24 04/29/25 Rx Loratadine [Claritin] 5 mg PO DAILY tab 03/30/24 04/29/25 Rx Aspirin 81 mg PO DAILY@0800 #30 tab 05/18/24 04/29/25 Rx Famotidine [Pepcid] 20 mg PO BID #60 tab 07/11/24 04/29/25 Rx Levothyroxine Sodium [Synthroid] 175 mcg PO DAILY@0600 08/14/24 04/29/25 History Sertraline [Zoloft] 200 mg PO DAILY@0800 08/14/24 04/29/25 History Atorvastatin [Lipitor] 40 mg PO HS #0 11/23/24 04/29/25 Rx Folic Acid/Vit B Complex and C 0.8 mg PO DAILY 12/20/24 04/29/25 History [Davina-Mayte Tablet] traZODone HCL [Desyrel] 50 mg PO HS #20 tab 01/01/25 04/29/25 Rx Isosorbide Mononitrate ER [Imdur] 120 mg PO DAILY #60 tab 01/02/25 04/29/25 Rx NIFEdipine XL [Procardia XL] 60 mg PO BID 30 Days #60 tab 01/02/25 04/29/25 Rx Gabapentin [Neurontin] 100 mg PO BID 30 Days #60 cap 01/03/25 04/29/25 Rx Linagliptin [Tradjenta] 5 mg PO DAILY #30 tab 01/03/25 04/29/25 Rx Insulin Lispro [humaLOG Kwikpen] See Protocol SQ AC-TID 01/22/25 04/29/25 History cloNIDine HCL [Catapres] 0.3 mg PO TID 01/22/25 04/29/25 History carvediloL [Coreg] 50 mg PO BID #120 tablet 02/15/25 04/29/25 Rx Calcium Acetate [PhosLo] 1,334 mg PO TID-W/MEALS 30 Days 02/19/25 04/29/25 Rx #360 tab Ipratropium-Albuterol Nebulize 3 ml INHALATION RT-TID #100 each 02/19/25 04/29/25 Rx [Duoneb 0.5 mg-3 mg/3 ml Soln] ALPRAZolam [Xanax] 0.25 mg PO BID PRN 02/26/25 04/29/25 History Divalproex Sodium [Depakote] 500 mg PO BID@0800,1700 02/26/25 04/29/25 History Lidocaine 5% Cream 1 applic TOPICAL MOTUWETHSA 02/26/25 04/29/25 History Methoxy Peg-Epoetin Beta [Mircera] 100 mcg SQ Q14D 02/26/25 04/29/25 History Insulin Glargine (Lantus) [Lantus 11 unit SQ BID #0 03/18/25 04/29/25 Rx Vial] oxyCODONE HCL/ACETAMINOPHEN 1 tab PO DAILY PRN 04/16/25 04/29/25 History [Percocet 10-325 mg] hydrOXYzine HCL [Atarax] 25 mg PO TID PRN #10 tab 04/24/25 04/29/25 Rx INSULIN LISPRO (HumaLOG) [HumaLOG] 5 unit SQ AC-TID each 04/27/25 04/29/25 Rx Sodium Zirconium Cyclosilicate 10 gm PO DAILY #30 04/27/25 04/29/25 Rx [Lokelma] Allergies Allergy/AdvReac Type Severity Reaction Status Date / Time hydromorphone HCl Allergy Anaphylaxis Verified 04/29/25 14:12 [From Dilaudid] propoxyphene Allergy Rash/Hives Verified 04/29/25 14:12 [From Darvocet-N] tramadol Allergy Anaphylaxis Verified 04/29/25 14:12 ampicillin [From Unasyn] AdvReac Itching Verified 04/29/25 14:12 ibuprofen [From Motrin] AdvReac unable to Verified 04/29/25 14:12 take due to kidney disease sulbactam [From Unasyn] AdvReac Itching Verified 04/29/25 14:12 venom-honey bee AdvReac passes out Verified 04/29/25 14:12 [bee venom (honey bee)] Physical Exam Vitals: Vital Signs Temp Pulse Pulse Resp BP Pulse Ox 05/04/25 08:20 88 05/04/25 08:11 96 05/04/25 08:09 80 05/04/25 08:00 88 18 129/79 96 05/04/25 04:00 97.8 F 85 16 171/95 100 05/03/25 23:33 98 F 80 16 130/71 100 05/03/25 20:52 87 05/03/25 20:49 85 05/03/25 20:41 83 05/03/25 20:00 97.8 F 86 16 136/76 97 05/03/25 16:00 82 16 175/86 99 05/03/25 14:40 97.8 F 78 18 127/81 05/03/25 12:31 80 05/03/25 12:25 78 Intake and Output 05/03/25 05/04/25 05/04/25 22:59 06:59 14:59 Intake Total 427 20 246 Balance 427 20 246 Intake: IV 10 20 10 0.9 10 Invasive Line 1 10 10 10 Oral 417 236 Other: # Bowel Movements 1 Weight 70.6 kg 70.6 kg GENERAL DESCRIPTION: LH female up in bed, no distress. No tachypnea or accessory muscle of respiration use. HEENT: Shows Pallor , no scleral icterus. Oral mucous membrane is dry. NECK: Trachea central, no thyromegaly. LUNGS: Unlabored breathing. Decreased breath sound at the base HEART: S1, S2, regular rate and rhythm. No loud murmur ABDOMEN: Soft, no tenderness EXTREMITIES: No edema of feet. SKIN: No rash, no masses palpable. NEUROLOGICAL: The patient is awake, alert, oriented x3, mood and affect normal. Results CBC & Chem 7: 05/04/25 06:46 05/04/25 06:46 Labs: Abnormal Lab Results - Last 24 Hours (Table) 05/03/25 05/03/25 05/03/25 Range/Units 13:24 16:18 20:08 RBC (4.10-5.20) 10*6/uL Hgb (12.0-15.0) g/dL Hct (37.2-46.3) % MCV (80.0-97.0) fL MCH (27.0-32.0) pg Eosinophils # (Manual) (0-0.7) k/uL Sodium (137-145) mmol/L Potassium (3.5-5.1) mmol/L Chloride (98-107) mmol/L BUN (7-17) mg/dL Creatinine (0.52-1.04) mg/dL Glucose (74-99) mg/dL POC Glucose (mg/dL) 180 H 174 H 149 H (70-110) mg/dL ALT (4-34) U/L Alkaline Phosphatase (38-126) U/L 05/04/25 05/04/25 05/04/25 Range/Units 05:49 06:46 06:46 RBC 3.38 L (4.10-5.20) 10*6/uL Hgb 11.1 L (12.0-15.0) g/dL Hct 33.7 L (37.2-46.3) % MCV 99.7 H (80.0-97.0) fL MCH 32.8 H (27.0-32.0) pg Eosinophils # (Manual) 1.82 H (0-0.7) k/uL Sodium 133 L (137-145) mmol/L Potassium 6.1 H* (3.5-5.1) mmol/L Chloride 95 L (98-107) mmol/L BUN 45 H (7-17) mg/dL Creatinine 3.83 H (0.52-1.04) mg/dL Glucose 258 H (74-99) mg/dL POC Glucose (mg/dL) 230 H (70-110) mg/dL ALT 54 H (4-34) U/L Alkaline Phosphatase 172 H (38-126) U/L Microbiology - Last 24 Hours (Table) 05/02/25 11:13 Blood Culture - Preliminary Blood 04/29/25 23:02 Blood Culture - Preliminary Blood Assessment and Plan (1) Positive urine culture Current Visit: Yes Status: Acute Code(s): R82.79 - OTHER ABNORMAL FINDINGS ON MICROBIOLOG EXAMINATION OF URINE SNOMED Code(s): 016461863 Plan: 1patient with a positive urine culture with VRE and Enterobacter in this patient who is a dialysis dependent hardly makes any urine with a corresponding UA was cloudy but without any leukocyte esterase nitrite or WBC more likely representing contamination however did not show infection as the patient noted to be afebrile and white count is normal 2will repeat a UA if positive the patient remains to be symptomatic may consider treatment otherwise hold on any systemic antibiotic therapy at this point We will follow on clinical condition and cultures to further adjust medication if needed Thank you for this consultation we will follow the patient along with you Dictation was produced using [employer] dictation software. please excuse any grammatical, word or spelling errors. Time with Patient: Greater than 30
[2025-05-05 06:17] LABS: Glucose,Whole Blood 316 mg/dL (70-110)
[2025-05-05 08:04] LABS: ALT 48 U/L (4-34); AST 25 U/L (14-36); African American GFR (CKD) 16 (>60 ml/min/1.73 sqM); Albumin 4.2 g/dL (3.5-5.0); Alkaline Phosphatase 177 U/L (38-126); Anion Gap 14 mmol/L; Blood Urea Nitrogen 49 mg/dL (7-17); Calcium 9.8 mg/dL (8.4-10.2); Carbon Dioxide 25 mmol/L (22-30); Chloride 92 mmol/L (98-107); Glucose 269 mg/dL (74-99); Non-African American GFR(CKD) 14 (>60 ml/min/1.73 sqM); Sodium 131 mmol/L (137-145); Total Bilirubin 0.4 mg/dL (0.2-1.3); Total Protein 6.6 g/dL (6.3-8.2)
[2025-05-05] MEDS: BUTALB/APAP/CAFF 50-325-40MG TAB PO PRN (08:43)
--- NOTE | 2025-05-05 08:55 | P.PN ---
Subjective Progress Note Date: 05/04/25 This is a 35-year-old female who was recently admitted with hypertensive urgency along with CHF and cough with sputum production being closely monitored. Multiple consultations including pulmonary, cardiology, nephrology following and patient is maintained on hemodialysis. Patient does receive hemodialysis 4 days weekly and will continue. Patient's reporting to feeling slightly improved and patient did have a urine culture that is showing positive for Enterococcus faecium VRE and will repeat and also consult infectious disease and appreciate input and recommendations. Patient was not reporting urinary symptoms including pain or burning with urination. Patient's blood sugars have been variable and will continue to monitor closely and adjust insulins accordingly. Patient encouraged to increase activity as tolerated 05/04/2025 Patient is seen in follow-up reporting she has a severe headache 10/10 on the pain scale and has multiple medications available with multiple allergies also. Patient is maintained on antibiotics with infectious disease following with concerns of VRE in the urine. Patient reports she only urinates every 4 to 5 days and a repeat urinalysis with culture is ordered. Patient reports when she does urinate it is painful with burning although initially she was not reporting any of the symptoms. Patient is afebrile with no reports of chest pain. Patient continues to report shortness of breath and is receiving dialysis again sometime today. Review of systems: Constitutional: No reports of fatigue, fever, or chills Cardiovascular: No reports of chest pain or palpitations Respiratory: No reports of worsening shortness of breath, reports continued cough GI: reports of occasional nausea, no reports of vomiting, loose stools : reports of dysuria or retention And only urinates every 4 or 5 days Neurovascular: reports of generalized weakness All medications have been reviewed PHYSICAL EXAMINATION: GENERAL: The patient is alert and oriented x4, Well developed, elderly appearing, chronically ill-appearing, edematous throughout HEENT: Pupils are round and equally reacting to light. EOMI. no scleral icterus. No conjunctival pallor. Normocephalic, atraumatic. No pharyngeal erythema. No thyromegaly. CARDIOVASCULAR: S1 and S2 muffled PULMONARY: diminished breath sounds bilaterally with no wheezing or rhonchi noted. Bronchial congestion noted ABDOMEN: soft. Nontender on exam. non-distended, normoactive bowel sounds. No palpable organomegaly. MUSCULOSKELETAL: No joint swelling or deformity. EXTREMITIES: No cyanosis, clubbing, or pedal edema. NEUROLOGICAL: Gross neurological examination did not reveal any focal deficits. Diffuse weakness SKIN: No rashes. Assessment: Congestive heart failure acute exacerbation with acute on chronic diastolic dysfunction Acute bronchitis, tracheobronchitis, purulent Hypertensive urgency and accelerated hypertension Positive urine culture with Enterococcus faecium VRE, possible acute urinary tract infection on admission as patient is now reporting she does have burning when she urinates and urinates only every 4 to 5 days. History of small to moderate pericardial effusion recently Diabetes mellitus, type I, brittle diabetic with extremely uncontrolled hyper and hypoglycemia Gastroparesis history Seizure disorder GI prophylaxis DVT prophylaxis Full code Plan: Recommend to continue with current medications and management with consultations following Patient did have a positive urine for Enterococcus VRE and will consult infectious disease and appreciate input and recommendations. Patient had been maintained on ceftriaxone for bronchial cough and pulmonary is following and will continue current regimen. Repeat urinalysis with culture ordered and pending. Initially patient was not reporting any pain or burning with urination and reports she only urinates every 4 or 5 days rarely and is maintained on hemodialysis for renal failure. Patient is reporting a headache and will adjust medications accordingly. Encourage patient to limit IV narcotic use. Patient to continue on dialysis 4 days weekly with nephrology following Blood pressures have improved and on the lower side, will discontinue Norvasc Patient receiving dialysis today Encouraged increased activity as tolerated Overall prognosis is guarded The impression and plan of care has been dictated by Margie Urbina, nurse practitioner as directed. Dr. Roro MD I have performed a history and examination and MDM of this patient, discussed the same with the dictator, and agree with the dictator's assessment and plan as written ,documented as a scribe. Based on total visit time, I have performed more than 50% of the visit. Any additional findings or plans will be noted. Objective - Vital Signs Vital signs: Vital Signs Temp 97.8 F 05/04/25 04:00 Pulse 78 05/04/25 15:19 Resp 18 05/04/25 14:00 BP 129/79 05/04/25 08:00 Pulse Ox 96 05/04/25 08:11 FiO2 28 05/01/25 08:04 Intake & Output 05/03/25 05/04/25 05/04/25 18:59 06:59 18:59 Intake Total 1120 267 256 Output Total 6192 Balance -5072 267 256 Weight 70.6 kg 70.6 kg Intake: IV 20 30 20 0.9 10 Invasive Line 1 20 20 20 Oral 600 237 236 Hemodialysis 500 Output: Hemodialysis 3346 Hemodialysis Net Amount 2846 Other: # Voids 0 # Bowel Movements 1 - Labs CBC & Chem 7: 05/04/25 06:46 05/05/25 07:36 Labs: Abnormal Lab Results - Last 24 Hours (Table) 05/03/25 05/03/25 05/04/25 Range/Units 16:18 20:08 05:49 RBC (4.10-5.20) 10*6/uL Hgb (12.0-15.0) g/dL Hct (37.2-46.3) % MCV (80.0-97.0) fL MCH (27.0-32.0) pg Eosinophils # (Manual) (0-0.7) k/uL Sodium (137-145) mmol/L Potassium (3.5-5.1) mmol/L Chloride (98-107) mmol/L BUN (7-17) mg/dL Creatinine (0.52-1.04) mg/dL Glucose (74-99) mg/dL POC Glucose (mg/dL) 174 H 149 H 230 H (70-110) mg/dL ALT (4-34) U/L Alkaline Phosphatase (38-126) U/L 05/04/25 05/04/25 Range/Units 06:46 06:46 RBC 3.38 L (4.10-5.20) 10*6/uL Hgb 11.1 L (12.0-15.0) g/dL Hct 33.7 L (37.2-46.3) % MCV 99.7 H (80.0-97.0) fL MCH 32.8 H (27.0-32.0) pg Eosinophils # (Manual) 1.82 H (0-0.7) k/uL Sodium 133 L (137-145) mmol/L Potassium 6.1 H* (3.5-5.1) mmol/L Chloride 95 L (98-107) mmol/L BUN 45 H (7-17) mg/dL Creatinine 3.83 H (0.52-1.04) mg/dL Glucose 258 H (74-99) mg/dL POC Glucose (mg/dL) (70-110) mg/dL ALT 54 H (4-34) U/L Alkaline Phosphatase 172 H (38-126) U/L Microbiology - Last 24 Hours (Table) 05/02/25 21:34 Gram Stain - Preliminary Sputum Sputum Culture - Preliminary 05/02/25 11:13 Blood Culture - Preliminary Blood 04/29/25 23:02 Blood Culture - Preliminary Blood
--- NOTE | 2025-05-05 09:53 | P.PN ---
Subjective Patient is a 35-year-old female being seen as a follow-up for end-stage renal disease. No active complaints. Scheduled for dialysis today. Vital signs are stable. General: No acute distress. On nasal cannula. HEENT: Head exam is unremarkable. LUNGS: No audible rhonchi or wheezes. HEART: Rate and Rhythm are regular. ABDOMEN: Nontender. EXTREMITITES: Trace edema. Objective - Vital Signs Vital signs: Vital Signs Temp 97.6 F 05/05/25 08:58 Pulse 86 05/05/25 09:03 Resp 17 05/05/25 08:58 BP 165/85 05/05/25 08:58 Pulse Ox 100 05/05/25 08:58 FiO2 28 05/01/25 08:04 Intake & Output 05/04/25 05/05/25 05/05/25 18:59 06:59 18:59 Intake Total 1233 760 130 Output Total 500 Balance 733 760 130 Weight 70.6 kg 76.4 kg Intake: IV 20 20 10 Invasive Line 1 20 20 10 Oral 713 740 120 Hemodialysis 500 Output: Hemodialysis 500 Hemodialysis Net Amount 0 - Labs CBC & Chem 7: 05/04/25 06:46 05/05/25 07:36 Labs: Abnormal Lab Results - Last 24 Hours (Table) 05/04/25 05/04/25 05/05/25 Range/Units 06:46 20:02 06:16 Eosinophils # (Manual) 1.82 H (0-0.7) k/uL Sodium (137-145) mmol/L Potassium (3.5-5.1) mmol/L Chloride (98-107) mmol/L BUN (7-17) mg/dL Creatinine (0.52-1.04) mg/dL Glucose (74-99) mg/dL POC Glucose (mg/dL) 146 H 316 H (70-110) mg/dL ALT (4-34) U/L Alkaline Phosphatase (38-126) U/L 05/05/25 Range/Units 07:36 Eosinophils # (Manual) (0-0.7) k/uL Sodium 131 L (137-145) mmol/L Potassium 6.0 H (3.5-5.1) mmol/L Chloride 92 L (98-107) mmol/L BUN 49 H (7-17) mg/dL Creatinine 4.02 H (0.52-1.04) mg/dL Glucose 269 H (74-99) mg/dL POC Glucose (mg/dL) (70-110) mg/dL ALT 48 H (4-34) U/L Alkaline Phosphatase 177 H (38-126) U/L Microbiology - Last 24 Hours (Table) 05/02/25 11:13 Blood Culture - Preliminary Blood 05/02/25 21:34 Gram Stain - Preliminary Sputum Sputum Culture - Preliminary Assessment and Plan Assessment: Assessment: 1. End-stage renal disease maintained on hemodialysis on Wednesday schedule. 2. Hyperkalemia secondary to chronic kidney disease and hyperglycemia. On Lokelma. Also received daily dialysis this week. 3. Volume overload. Left ventricular EF at 60%, RVSP 44, moderate tricuspid regurgitation, small pericardial effusion without tamponade 4. Hypertensive emergency. Improved. 5. Chronic kidney disease mineral bone disease maintained on PhosLo. 6. Diabetes mellitus 7. History of pericardial effusion 8. UTI on antibiotics. Plan: Hemodialysis today. Maintain low-salt diet and fluid restriction. Maintain Lokelma 10 g PO BID. Tight blood glucose control. Keep on strict renal diet. Avoid hydralazine due to history of pericardial effusion. Avoid ACEi/ARB and Aldactone due to hyperkalemia. Blood pressure well-controlled when euvolemic Continue clonidine 0.3 mg PO TID, hold if BP < 120/80. Add IV Lasix. Minoxidil discontinued.
[2025-05-05] MEDS: FUROSEMIDE 10 MG/ML 10 ML VIAL IV SCH (11:02)
[2025-05-05 11:20] LABS: Glucose,Whole Blood 127 mg/dL (70-110)
[2025-05-05 14:28] LABS: Glucose,Whole Blood 81 mg/dL (70-110)
--- NOTE | 2025-05-05 15:28 | P.PN ---
Subjective Progress Note Date: 05/05/25 Principal diagnosis: Reason for follow-up is positive urine culture Patient is a 35-year-old female with a past medical history significant for Diabetes Mellitus, GERD/Reflux, Hypertension, Renal Disease, Seizure Disorder, Thyroid Disorder with multiple admissions at this facility presenting to the hospital on 04/29/2025 for evaluation of increasing shortness of breath did have urine culture obtained in the ER UA was negative cultures came back positive with VRE Enterobacter prompting this consultation. On today's evaluation that is 05/05/2024, patient did have a temperature of 97.8 F this morning and denies having any chills, patient is on 2 L nasal cannula ox ygen and breathing comfortably no chest pain or cough, the patient did not have any nausea vomiting abdominal pain or any diarrhea. Patient did have a creatinine of 4.02 potassium was 6.0 repeat UA is pending Objective - Vital Signs Vital signs: Vital Signs Temp 97.8 F 05/05/25 10:57 Pulse 76 05/05/25 12:44 Resp 16 05/05/25 10:57 BP 148/79 05/05/25 10:57 Pulse Ox 99 05/05/25 10:57 FiO2 28 05/01/25 08:04 Intake & Output 05/04/25 05/05/25 05/05/25 18:59 06:59 18:59 Intake Total 1233 760 310 Output Total 500 Balance 733 760 310 Weight 70.6 kg 76.4 kg Intake: IV 20 20 10 Invasive Line 1 20 20 10 Oral 713 740 300 Hemodialysis 500 Output: Hemodialysis 500 Hemodialysis Net Amount 0 - Exam GENERAL DESCRIPTION: Middle-age female lying in bed in no distress RESPIRATORY SYSTEM: Unlabored breathing , decreased breath sounds at bases HEART: S1 S2 regular rate and rhythm , ABDOMEN: Soft , no tenderness EXTREMITIES: No edema feet - Labs CBC & Chem 7: 05/04/25 06:46 05/05/25 07:36 Labs: Abnormal Lab Results - Last 24 Hours (Table) 05/04/25 05/05/25 05/05/25 Range/Units 20:02 06:16 07:36 Sodium 131 L (137-145) mmol/L Potassium 6.0 H (3.5-5.1) mmol/L Chloride 92 L (98-107) mmol/L BUN 49 H (7-17) mg/dL Creatinine 4.02 H (0.52-1.04) mg/dL Glucose 269 H (74-99) mg/dL POC Glucose (mg/dL) 146 H 316 H (70-110) mg/dL ALT 48 H (4-34) U/L Alkaline Phosphatase 177 H (38-126) U/L 05/05/25 Range/Units 11:18 Sodium (137-145) mmol/L Potassium (3.5-5.1) mmol/L Chloride (98-107) mmol/L BUN (7-17) mg/dL Creatinine (0.52-1.04) mg/dL Glucose (74-99) mg/dL POC Glucose (mg/dL) 127 H (70-110) mg/dL ALT (4-34) U/L Alkaline Phosphatase (38-126) U/L Microbiology - Last 24 Hours (Table) 04/29/25 23:02 Blood Culture - Final Blood 05/02/25 21:34 Gram Stain - Final Sputum Sputum Culture - Final 05/02/25 11:13 Blood Culture - Preliminary Blood Assessment and Plan (1) Positive urine culture Current Visit: Yes Status: Acute Code(s): R82.79 - OTHER ABNORMAL FINDINGS ON MICROBIOLOG EXAMINATION OF URINE SNOMED Code(s): 352833355 Plan: 1patient with a positive urine culture with VRE and Enterobacter in this pa tient who is a dialysis dependent hardly makes any urine with a corresponding UA was cloudy but without any leukocyte esterase nitrite or WBC more likely representing contamination however did not show infection as the patient noted to be afebrile and white count is normal 2still waiting for repeat UA if negative there will be no need for any systemic antibiotic Dictation was produced using [employer] dictation software. please excuse any grammatical, word or spelling errors. Time with Patient: Less than 30
[2025-05-05 16:09] LABS: Glucose,Whole Blood 110 mg/dL (70-110)
[2025-05-05] MEDS: HYDROmorphone 0.5 MG/0.5 ML SYRINGE IVP PRN (16:11)
[2025-05-05] MEDS: BACITRACIN ZINC 500 UNIT/GM OINT 28.4 GM TUBE TOPICAL SCH (16:12)
[2025-05-05 19:32] LABS: Glucose,Whole Blood 108 mg/dL (70-110)
--- NOTE | 2025-05-05 20:35 | P.PN ---
Subjective Progress Note Date: 05/05/25 This is a 35-year-old female who was recently admitted with hypertensive urgency along with CHF and cough with sputum production being closely monitored. Multiple consultations including pulmonary, cardiology, nephrology following and patient is maintained on hemodialysis. Patient does receive hemodialysis 4 days weekly and will continue. Patient's reporting to feeling slightly improved and patient did have a urine culture that is showing positive for Enterococcus faecium VRE and will repeat and also consult infectious disease and appreciate input and recommendations. Patient was not reporting urinary symptoms including pain or burning with urination. Patient's blood sugars have been variable and will continue to monitor closely and adjust insulins accordingly. Patient encouraged to increase activity as tolerated 05/04/2025 Patient is seen in follow-up reporting she has a severe headache 10/10 on the pain scale and has multiple medications available with multiple allergies also. Patient is maintained on antibiotics with infectious disease following with concerns of VRE in the urine. Patient reports she only urinates every 4 to 5 days and a repeat urinalysis with culture is ordered. Patient reports when she does urinate it is painful with burning although initially she was not reporting any of the symptoms. Patient is afebrile with no reports of chest pain. Patient continues to report shortness of breath and is receiving dialysis again sometime today. 05/05/2025 Patient is seen in follow-up today continues to report her pain is uncontrolled and morphine discontinued as it can affect potassium and potassium has been elevated receiving daily Lokelma. Patient to continue with dialysis today again and will continue on 4 times weekly schedule. Awaiting repeat urinalysis with culture and will continue current regimen for now per infectious disease. Encouraged increase activity as tolerated and will follow-up on repeat labs. Sputum culture is negative and preliminary blood cultures thus far are negative. Patient remains afebrile and white count is normal Review of systems: Constitutional: No reports of fatigue, fever, or chills Cardiovascular: No reports of chest pain or palpitations Respiratory: No reports of worsening shortness of breath, reports continued cough GI: reports of occasional nausea, no reports of vomiting, loose stools : reports of dysuria or retention And only urinates every 4 or 5 days Neurovascular: reports of generalized weakness All medications have been reviewed PHYSICAL EXAMINATION: GENERAL: The patient is alert and oriented x4, Well developed, elderly appearing, chronically ill-appearing, edematous throughout HEENT: Pupils are round and equally reacting to light. EOMI. no scleral icterus. No conjunctival pallor. Normocephalic, atraumatic. No pharyngeal erythema. No thyromegaly. CARDIOVASCULAR: S1 and S2 muffled PULMONARY: diminished breath sounds bilaterally with no wheezing or rhonchi noted. Bronchial congestion noted ABDOMEN: soft. Nontender on exam. non-distended, normoactive bowel sounds. No palpable organomegaly. MUSCULOSKELETAL: No joint swelling or deformity. EXTREMITIES: No cyanosis, clubbing, or pedal edema. NEUROLOGICAL: Gross neurological examination did not reveal any focal deficits. Diffuse weakness SKIN: No rashes. Assessment: Congestive heart failure acute exacerbation with acute on chronic diastolic dysfunction Acute bronchitis, tracheobronchitis, purulent Hypertensive urgency and accelerated hypertension Positive urine culture with Enterococcus faecium VRE, possible acute urinary tract infection on admission as patient is now reporting she does have burning when she urinates and urinates only every 4 to 5 days. History of small to moderate pericardial effusion recently Diabetes mellitus, type I, brittle diabetic with extremely uncontrolled hyper and hypoglycemia Gastroparesis history Seizure disorder GI prophylaxis DVT prophylaxis Full code Plan: Recommend to continue with current medications and management with consultations following Patient did have a positive urine for Enterococcus VRE with infectious disease following and appreciate input and recommendations. Patient had been maintained on ceftriaxone for bronchial cough and pulmonary is following and will continue current regimen. Repeat urinalysis with culture ordered and pending. Initially patient was not reporting any pain or burning with urination and reports she only urinates every 4 or 5 days rarely and is maintained on hemodialysis for renal failure. Patient was given a dose of large dose of IV Lasix today and will wait for urine sample Patient is reporting a headache and will adjust medications accordingly. Encourage patient to limit IV narcotic use. Morphine discontinued per nephrology as it may have effect on her potassium being elevated, will add extremely low-dose Dilaudid as patient continues to report 8-9/10 on pain scale Patient to continue on dialysis 4 days weekly with nephrology following Blood pressures have improved and on the lower side, will discontinue Norvasc Patient receiving dialysis today Encouraged increased activity as tolerated Overall prognosis is guarded The impression and plan of care has been dictated by Margie Urbina, nurse practitioner as directed. Dr. Roro MD I have performed a history and examination and MDM of this patient, discussed the same with the dictator, and agree with the dictator's assessment and plan as written ,documented as a scribe. Based on total visit time, I have performed more than 50% of the visit. Any additional findings or plans will be noted. Objective - Vital Signs Vital signs: Vital Signs Temp 97.7 F 05/05/25 04:00 Pulse 83 05/05/25 04:00 Resp 17 05/05/25 04:00 BP 175/91 05/05/25 04:00 Pulse Ox 99 05/05/25 04:00 FiO2 28 05/01/25 08:04 Intake & Output 05/04/25 05/05/25 05/05/25 18:59 06:59 18:59 Intake Total 1233 760 Output Total 500 Balance 733 760 Weight 70.6 kg 76.4 kg Intake: IV 20 20 Invasive Line 1 20 20 Oral 713 740 Hemodialysis 500 Output: Hemodialysis 500 Hemodialysis Net Amount 0 - Labs CBC & Chem 7: 05/04/25 06:46 05/05/25 07:36 Labs: Abnormal Lab Results - Last 24 Hours (Table) 05/04/25 05/04/25 05/04/25 Range/Units 06:46 06:46 20:02 Eosinophils # (Manual) 1.82 H (0-0.7) k/uL Sodium 133 L (137-145) mmol/L Potassium 6.1 H* (3.5-5.1) mmol/L Chloride 95 L (98-107) mmol/L BUN 45 H (7-17) mg/dL Creatinine 3.83 H (0.52-1.04) mg/dL Glucose 258 H (74-99) mg/dL POC Glucose (mg/dL) 146 H (70-110) mg/dL ALT 54 H (4-34) U/L Alkaline Phosphatase 172 H (38-126) U/L 05/05/25 05/05/25 Range/Units 06:16 07:36 Eosinophils # (Manual) (0-0.7) k/uL Sodium 131 L (137-145) mmol/L Potassium 6.0 H (3.5-5.1) mmol/L Chloride 92 L (98-107) mmol/L BUN 49 H (7-17) mg/dL Creatinine 4.02 H (0.52-1.04) mg/dL Glucose 269 H (74-99) mg/dL POC Glucose (mg/dL) 316 H (70-110) mg/dL ALT 48 H (4-34) U/L Alkaline Phosphatase 177 H (38-126) U/L Microbiology - Last 24 Hours (Table) 05/02/25 11:13 Blood Culture - Preliminary Blood 05/02/25 21:34 Gram Stain - Preliminary Sputum Sputum Culture - Preliminary
[2025-05-06 05:31] LABS: Glucose,Whole Blood 213 mg/dL (70-110)
[2025-05-06 07:23] LABS: Basophils # (A) 0.08 10*3/uL (0.00-0.10); Eosinophils # (A) 1.65 10*3/uL (0.04-0.35); Eosinophils % (A) 21.3 %; HCT 28.9 % (37.2-46.3); Lymphocytes % (A) 12.9 %; MCH 33.1 pg (27.0-32.0); MCHC 31.8 g/dL (32.0-37.0); Mean Platelet Volume 10.8 fL (9.5-12.2); Monocytes # (A) 0.91 10*3/uL (0.20-1.00); Monocytes % (A) 11.7 %; Neutrophils # (A) 4.09 10*3/uL (1.80-7.70); Neutrophils % (A) 52.7 %; Platelet Count 177 10*3/uL (140-440); RBC 2.78 10*6/uL (4.10-5.20); RDW 17.2 % (11.5-14.5); WBC 7.76 10*3/uL (4.50-10.00)
[2025-05-06 07:39] LABS: HGB 9.2 g/dL (12.0-15.0)
[2025-05-06 07:42] LABS: African American GFR (CKD) 19 (>60 ml/min/1.73 sqM); Anion Gap 8 mmol/L; Blood Urea Nitrogen 42 mg/dL (7-17); Calcium 9.6 mg/dL (8.4-10.2); Carbon Dioxide 30 mmol/L (22-30); Chloride 97 mmol/L (98-107); Glucose 200 mg/dL (74-99); Magnesium 1.9 mg/dL (1.6-2.3); Non-African American GFR(CKD) 16 (>60 ml/min/1.73 sqM); Sodium 135 mmol/L (137-145)
[2025-05-06 07:43] LABS: Potassium 6.6 mmol/L (3.5-5.1)
[2025-05-06] MEDS: INSULIN REGULAR 100 UNIT/ML VIAL (IV) IV ONE (09:22)
[2025-05-06] MEDS: DEXTROSE 50% SYRINGE 50 ML IVP STA (09:22)
[2025-05-06] MEDS: CALCIUM GLUCONATE IN NACL 1 GM in SALINE 1 100ML.BAG IVPB ONE (09:23)
--- NOTE | 2025-05-06 10:10 | XR ---
EXAMINATION TYPE: XR chest 1V portable DATE OF EXAM: 05/06/2025 COMPARISON: 05/02/2025 CLINICAL INDICATION: Female, 35 years old with history of shortness of breath; TECHNIQUE: Single frontal view of the chest is obtained. FINDINGS: There is persistent moderate cardiomegaly. There is interval development of mild pulmonary vascular c ongestion but no significant interstitial or alveolar edema. There is no pleural effusion. There is n o pneumothorax. COMPARISON: Findings consistent with mild CHF. [facility], , 05/06/2025 10:07 AM
--- NOTE | 2025-05-06 10:35 | P.PN ---
Subjective Progress Note Date: 05/06/25 This is a 35-year-old female who was recently admitted with hypertensive urgency along with CHF and cough with sputum production being closely monitored. Multiple consultations including pulmonary, cardiology, nephrology following and patient is maintained on hemodialysis. Patient does receive hemodialysis 4 days weekly and will continue. Patient's reporting to feeling slightly improved and patient did have a urine culture that is showing positive for Enterococcus faecium VRE and will repeat and also consult infectious disease and appreciate input and recommendations. Patient was not reporting urinary symptoms including pain or burning with urination. Patient's blood sugars have been variable and will continue to monitor closely and adjust insulins accordingly. Patient encouraged to increase activity as tolerated 05/04/2025 Patient is seen in follow-up reporting she has a severe headache 10/10 on the pain scale and has multiple medications available with multiple allergies also. Patient is maintained on antibiotics with infectious disease following with concerns of VRE in the urine. Patient reports she only urinates every 4 to 5 days and a repeat urinalysis with culture is ordered. Patient reports when she does urinate it is painful with burning although initially she was not reporting any of the symptoms. Patient is afebrile with no reports of chest pain. Patient continues to report shortness of breath and is receiving dialysis again sometime today. 05/05/2025 Patient is seen in follow-up today continues to report her pain is uncontrolled and morphine discontinued as it can affect potassium and potassium has been elevated receiving daily Lokelma. Patient to continue with dialysis today again and will continue on 4 times weekly schedule. Awaiting repeat urinalysis with culture and will continue current regimen for now per infectious disease. Encouraged increase activity as tolerated and will follow-up on repeat labs. Sputum culture is negative and preliminary blood cultures thus far are negative. Patient remains afebrile and white count is normal 05/06/2025 Patient is seen in follow-up today reporting she had extreme cough throughout the night and will be given some cough medicine and medications adjusted. Patient did receive another dose of large dose IV Lasix and is receiving hemodialysis again today per nephrology. Patient did make some urine yesterday although not much and not enough to send for a sample. Will attempt to repeat a urinalysis with culture with infectious disease following maintained on current antibiotics. Will discuss further with consultations regarding discharge planning possibly in the next 24 to 48 hours. Review of systems: Constitutional: No reports of fatigue, fever, or chills Cardiovascular: No reports of chest pain or palpitations Respiratory: No reports of worsening shortness of breath, reports continued cough that is becoming more painful GI: reports of occasional nausea, no reports of vomiting, loose stools : reports of dysuria or retention And only urinates every 4 or 5 days Neurovascular: reports of generalized weakness All medications have been reviewed PHYSICAL EXAMINATION: GENERAL: The patient is alert and oriented x4, Well developed, elderly appearing, chronically ill-appearing, edematous throughout HEENT: Pupils are round and equally reacting to light. EOMI. no scleral icterus. No conjunctival pallor. Normocephalic, atraumatic. No pharyngeal erythema. No thyromegaly. CARDIOVASCULAR: S1 and S2 muffled PULMONARY: diminished breath sounds bilaterally with no wheezing, coarse scattered rhonchi noted. Bronchial congestion noted with a harsh cough ABDOMEN: soft. Nontender on exam. non-distended, normoactive bowel sounds. No palpable organomegaly. MUSCULOSKELETAL: No joint swelling or deformity. EXTREMITIES: No cyanosis, clubbing, or pedal edema. NEUROLOGICAL: Gross neurological examination did not reveal any focal deficits. Diffuse weakness SKIN: No rashes. Assessment: Congestive heart failure acute exacerbation with acute on chronic diastolic dysfunction Acute bronchitis, tracheobronchitis, purulent Hypertensive urgency and accelerated hypertension Positive urine culture with Enterococcus faecium VRE, possible acute urinary tract infection on admission as patient is now reporting she does have burning when she urinates and urinates only every 4 to 5 days. History of small to moderate pericardial effusion recently Diabetes mellitus, type I, brittle diabetic with extremely uncontrolled hyper and hypoglycemia Gastroparesis history Seizure disorder GI prophylaxis DVT prophylaxis Full code Plan: Recommend to continue with current medications and management with consultations following Patient did have a positive urine for Enterococcus VRE with infectious disease following and appreciate input and recommendations. Patient had been maintained on ceftriaxone for bronchial cough and pulmonary is following and will continue current regimen. Repeat urinalysis with culture ordered and pending. Initially patient was not reporting any pain or burning with urination and reports she only urinates every 4 or 5 days rarely and is maintained on hemodialysis for renal failure. Patient was given an additional dose of large dose of IV Lasix today and will wait for urine sample Patient is reporting a headache and will adjust medications accordingly. Encourage patient to limit IV narcotic use. Morphine discontinued per nephrology as it may have effect on her potassium being elevated, will add extremely low-dose Dilaudid as patient continues to report 8-9/10 on pain scale. Patient to continue on dialysis 4 days weekly with nephrology following. Patient to receive hemodialysis again today per nephrology Blood pressures have improved and on the lower side, discontinue Norvasc Patient receiving dialysis again today 05/06/2025 Encouraged increased activity as tolerated Overall prognosis is guarded Will discuss with consultations regarding discharge planning possibly in the next 24 to 48 hours. The impression and plan of care has been dictated by Margie Urbina, nurse practitioner as directed. Dr. Roro MD I have performed a history and examination and MDM of this patient, discussed the same with the dictator, and agree with the dictator's assessment and plan as written ,documented as a scribe. Based on total visit time, I have performed more than 50% of the visit. Any additional findings or plans will be noted. Objective - Vital Signs Vital signs: Vital Signs Temp 98.1 F 05/06/25 08:31 Pulse 74 05/06/25 09:05 Resp 16 05/06/25 08:31 BP 135/79 05/06/25 08:31 Pulse Ox 97 05/06/25 08:57 FiO2 28 05/01/25 08:04 Intake & Output 05/05/25 05/06/25 05/06/25 18:59 06:59 18:59 Intake Total 1280 1640 Output Total 6500 Balance -5220 1640 Weight 77 kg Intake: IV 20 20 Invasive Line 1 20 20 Oral 760 1620 Hemodialysis 500 Output: Hemodialysis 3500 Hemodialysis Net Amount 3000 - Labs CBC & Chem 7: 05/06/25 06:22 05/06/25 06:22 Labs: Abnormal Lab Results - Last 24 Hours (Table) 05/05/25 05/06/25 05/06/25 Range/Units 11:18 05:30 06:22 RBC 2.78 L (4.10-5.20) 10*6/uL Hgb 9.2 L D (12.0-15.0) g/dL Hct 28.9 L (37.2-46.3) % MCV 104.0 H (80.0-97.0) fL MCH 33.1 H (27.0-32.0) pg MCHC 31.8 L (32.0-37.0) g/dL Eosinophils # 1.65 H (0.04-0.35) 10*3/uL Sodium (137-145) mmol/L Potassium (3.5-5.1) mmol/L Chloride (98-107) mmol/L BUN (7-17) mg/dL Creatinine (0.52-1.04) mg/dL Glucose (74-99) mg/dL POC Glucose (mg/dL) 127 H 213 H (70-110) mg/dL 05/06/25 Range/Units 06:22 RBC (4.10-5.20) 10*6/uL Hgb (12.0-15.0) g/dL Hct (37.2-46.3) % MCV (80.0-97.0) fL MCH (27.0-32.0) pg MCHC (32.0-37.0) g/dL Eosinophils # (0.04-0.35) 10*3/uL Sodium 135 L (137-145) mmol/L Potassium 6.6 H* (3.5-5.1) mmol/L Chloride 97 L (98-107) mmol/L BUN 42 H (7-17) mg/dL Creatinine 3.50 H (0.52-1.04) mg/dL Glucose 200 H (74-99) mg/dL POC Glucose (mg/dL) (70-110) mg/dL Microbiology - Last 24 Hours (Table) 05/02/25 11:13 Blood Culture - Preliminary Blood 04/29/25 23:02 Blood Culture - Final Blood 05/02/25 21:34 Gram Stain - Final Sputum Sputum Culture - Final
[2025-05-06] MEDS: DEXTROSE 50% SYRINGE 50 ML IVP PRN (10:41)
[2025-05-06 10:45] LABS: Glucose,Whole Blood 47 mg/dL (70-110)
--- NOTE | 2025-05-06 10:49 | P.PN ---
Subjective Patient is a 35-year-old female being seen as a follow-up for end-stage renal disease. No active complaints. Potassium again high today. Vital signs are stable. General: No acute distress. On nasal cannula. HEENT: Head exam is unremarkable. LUNGS: No audible rhonchi or wheezes. HEART: Rate and Rhythm are regular. ABDOMEN: Nontender. EXTREMITITES: Trace edema. Objective - Vital Signs Vital signs: Vital Signs Temp 98.1 F 05/06/25 08:31 Pulse 74 05/06/25 09:05 Resp 16 05/06/25 08:31 BP 135/79 05/06/25 08:31 Pulse Ox 97 05/06/25 08:57 FiO2 28 05/01/25 08:04 Intake & Output 05/05/25 05/06/25 05/06/25 18:59 06:59 18:59 Intake Total 1280 1640 Output Total 6500 Balance -5220 1640 Weight 77 kg Intake: IV 20 20 Invasive Line 1 20 20 Oral 760 1620 Hemodialysis 500 Output: Hemodialysis 3500 Hemodialysis Net Amount 3000 - Labs CBC & Chem 7: 05/06/25 06:22 05/06/25 06:22 Labs: Abnormal Lab Results - Last 24 Hours (Table) 05/05/25 05/06/25 05/06/25 Range/Units 11:18 05:30 06:22 RBC 2.78 L (4.10-5.20) 10*6/uL Hgb 9.2 L D (12.0-15.0) g/dL Hct 28.9 L (37.2-46.3) % MCV 104.0 H (80.0-97.0) fL MCH 33.1 H (27.0-32.0) pg MCHC 31.8 L (32.0-37.0) g/dL Eosinophils # 1.65 H (0.04-0.35) 10*3/uL Sodium (137-145) mmol/L Potassium (3.5-5.1) mmol/L Chloride (98-107) mmol/L BUN (7-17) mg/dL Creatinine (0.52-1.04) mg/dL Glucose (74-99) mg/dL POC Glucose (mg/dL) 127 H 213 H (70-110) mg/dL 05/06/25 05/06/25 Range/Units 06:22 10:39 RBC (4.10-5.20) 10*6/uL Hgb (12.0-15.0) g/dL Hct (37.2-46.3) % MCV (80.0-97.0) fL MCH (27.0-32.0) pg MCHC (32.0-37.0) g/dL Eosinophils # (0.04-0.35) 10*3/uL Sodium 135 L (137-145) mmol/L Potassium 6.6 H* (3.5-5.1) mmol/L Chloride 97 L (98-107) mmol/L BUN 42 H (7-17) mg/dL Creatinine 3.50 H (0.52-1.04) mg/dL Glucose 200 H (74-99) mg/dL POC Glucose (mg/dL) 47 L* (70-110) mg/dL Microbiology - Last 24 Hours (Table) 05/02/25 11:13 Blood Culture - Preliminary Blood 04/29/25 23:02 Blood Culture - Final Blood 05/02/25 21:34 Gram Stain - Final Sputum Sputum Culture - Final Assessment and Plan Assessment: Assessment: 1. End-stage renal disease maintained on hemodialysis on Wednesday schedule. 2. Hyperkalemia secondary to chronic kidney disease and hyperglycemia. On Lokelma. Also received daily dialysis this week. 3. Volume overload. Left ventricular EF at 60%, RVSP 44, moderate tricuspid regurgitation, small pericardial effusion without tamponade 4. Hypertensive emergency. Improved. 5. Chronic kidney disease mineral bone disease maintained on PhosLo. 6. Diabetes mellitus 7. History of pericardial effusion 8. UTI on antibiotics. Plan: Hemodialysis today. Maintain low-salt diet and fluid restriction. Increase Lokelma to 3 times daily. Tight blood glucose control. Keep on strict renal diet. Avoid hydralazine due to history of pericardial effusion. Avoid ACEi/ARB and Aldactone due to hyperkalemia. Blood pressure well-controlled when euvolemic Continue clonidine 0.3 mg PO TID, hold if BP < 120/80. Maintain IV Lasix. Minoxidil discontinued.
[2025-05-06 11:03] LABS: Glucose,Whole Blood 107 mg/dL (70-110)
[2025-05-06 11:26] LABS: Glucose,Whole Blood 95 mg/dL (70-110)
[2025-05-06] MEDS: guaiFENesin-Coden 100-10MG/5ML 10 ML CUP PO PRN (14:57)
--- NOTE | 2025-05-06 16:15 | P.PN ---
Subjective Progress Note Date: 05/06/25 Principal diagnosis: Reason for follow-up is positive urine culture Patient is a 35-year-old female with a past medical history significant for Diabetes Mellitus, GERD/Reflux, Hypertension, Renal Disease, Seizure Disorder, Thyroid Disorder with multiple admissions at this facility presenting to the hospital on 04/29/2025 for evaluation of increasing shortness of breath did have urine culture obtained in the ER UA was negative cultures came back positive with VRE Enterobacter prompting this consultation. On today's evaluation that is 05/06/2025, Patient is afebrile patient is currently on 2 L current oxygen patient mentioned that her left lower jaw tooth broke off denies of any drainage circumventing denies body aches still, some abdominal pain but no diarrhea urine repeat has not been collected. Patient white count 7.76, creatinine 3.56 Objective - Vital Signs Vital signs: Vital Signs Temp 98.2 F 05/06/25 15:09 Pulse 74 05/06/25 15:09 Resp 16 05/06/25 15:09 BP 126/69 05/06/25 15:09 Pulse Ox 99 05/06/25 15:09 FiO2 28 05/01/25 08:04 Intake & Output 05/05/25 05/06/25 05/06/25 18:59 06:59 18:59 Intake Total 1280 1640 940 Output Total 6500 4500 Balance -5220 1640 -3560 Weight 77 kg Intake: IV 20 20 40 Invasive Line 1 20 20 40 Intake, IV Titration 100 Amount Calcium Gluconate in NaCl 100 1 gm In Saline 1 100ml. bag @ 100 mls/hr IVPB ONCE ONE Rx#:[id number] Oral 760 1620 300 Hemodialysis 500 500 Output: Hemodialysis 3500 2500 Hemodialysis Net Amount 3000 1999 - Exam GENERAL DESCRIPTION: Middle-age female lying in bed in no distress RESPIRATORY SYSTEM: Unlabored breathing , decreased breath sounds at bases HEART: S1 S2 regular rate and rhythm , ABDOMEN: Soft , no tenderness EXTREMITIES: No edema feet - Labs CBC & Chem 7: 05/06/25 06:22 05/06/25 06:22 Labs: Abnormal Lab Results - Last 24 Hours (Table) 05/06/25 05/06/25 05/06/25 Range/Units 05:30 06: 06:22 RBC 2.78 L (4.10-5.20) 10*6/uL Hgb 9.2 L D (12.0-15.0) g/dL Hct 28.9 L (37.2-46.3) % MCV 104.0 H (80.0-97.0) fL MCH 33.1 H (27.0-32.0) pg MCHC 31.8 L (32.0-37.0) g/dL Eosinophils # 1.65 H (0.04-0.35) 10*3/uL Sodium 135 L (137-145) mmol/L Potassium 6.6 H* (3.5-5.1) mmol/L Chloride 97 L (98-107) mmol/L BUN 42 H (7-17) mg/dL Creatinine 3.50 H (0.52-1.04) mg/dL Glucose 200 H (74-99) mg/dL POC Glucose (mg/dL) 213 H (70-110) mg/dL 05/06/25 Range/Units 10:39 RBC (4.10-5.20) 10*6/uL Hgb (12.0-15.0) g/dL Hct (37.2-46.3) % MCV (80.0-97.0) fL MCH (27.0-32.0) pg MCHC (32.0-37.0) g/dL Eosinophils # (0.04-0.35) 10*3/uL Sodium (137-145) mmol/L Potassium (3.5-5.1) mmol/L Chloride (98-107) mmol/L BUN (7-17) mg/dL Creatinine (0.52-1.04) mg/dL Glucose (74-99) mg/dL POC Glucose (mg/dL) 47 L* (70-110) mg/dL Microbiology - Last 24 Hours (Table) 05/02/25 11:13 Blood Culture - Preliminary Blood 04/29/25 23:02 Blood Culture - Final Blood Assessment and Plan (1) Positive urine culture Current Visit: Yes Status: Acute Code(s): R82.79 - OTHER ABNORMAL FINDINGS ON MICROBIOLOG EXAMINATION OF URINE SNOMED Code(s): 800728727 Plan: 1patient with a positive urine culture with VRE and Enterobacter in this patient who is a dialysis dependent hardly makes any urine with a corresponding UA was cloudy but without any leukocyte esterase nitrite or WBC more likely representing contamination however did not show infection as the patient noted to be afebrile and white count is normal 2still waiting for repeat UA if negative there will be no need for any systemic antibiotic 3patient did have a left lower jaw infected tooth that has fell off culture have been obtained at the base results will be followed and antibiotics adjusted if needed Dictation was produced using [employer] dictation software. please excuse any grammatical, word or spelling errors. Time with Patient: Less than 30
[2025-05-06 16:31] LABS: Glucose,Whole Blood 178 mg/dL (70-110)
[2025-05-06] MEDS: SODIUM ZIRCONIUM CYCLOSILICATE 10 GM PACKET PO SCH (17:06)
[2025-05-06 20:03] LABS: Glucose,Whole Blood 115 mg/dL (70-110)
[2025-05-07 05:54] LABS: HCT 29.1 % (37.2-46.3); MCH 32.1 pg (27.0-32.0); MCHC 30.9 g/dL (32.0-37.0); MCV 103.9 fL (80.0-97.0); Mean Platelet Volume 10.6 fL (9.5-12.2); Platelet Count 174 10*3/uL (140-440); RDW 16.9 % (11.5-14.5); WBC 8.25 10*3/uL (4.50-10.00)
[2025-05-07 06:12] LABS: Glucose,Whole Blood 142 mg/dL (70-110)
[2025-05-07 06:15] LABS: African American GFR (CKD) 17 (>60 ml/min/1.73 sqM); Anion Gap 11 mmol/L; Blood Urea Nitrogen 49 mg/dL (7-17); Calcium 9.6 mg/dL (8.4-10.2); Carbon Dioxide 27 mmol/L (22-30); Chloride 96 mmol/L (98-107); Glucose 125 mg/dL (74-99); Non-African American GFR(CKD) 15 (>60 ml/min/1.73 sqM); Sodium 134 mmol/L (137-145)
[2025-05-07 07:48] LABS: Potassium 6.6 mmol/L (3.5-5.1)
[2025-05-07 07:50] VITALS: RESP 18
[2025-05-07 11:26] LABS: Glucose,Whole Blood 43 mg/dL (70-110)
[2025-05-07 11:27] LABS: Glucose,Whole Blood 44 mg/dL (70-110)
[2025-05-07 11:28] LABS: Glucose,Whole Blood 41 mg/dL (70-110)
--- NOTE | 2025-05-07 11:42 | P.PN ---
Subjective Progress Note Date: 05/07/25 Patient is a 35-year-old female being seen as a follow-up for end-stage renal disease. No active complaints. Was seen during dialysis. Potassium remains elevated. Vital signs are stable. General: No acute distress. On nasal cannula. HEENT: Head exam is unremarkable. LUNGS: No audible rhonchi or wheezes. HEART: Rate and Rhythm are regular. ABDOMEN: Nontender. EXTREMITITES: Trace edema. Objective - Vital Signs Vital signs: Vital Signs Temp 98.0 F 05/07/25 07:49 Pulse 76 05/07/25 07:49 Resp 18 05/07/25 07:49 BP 158/76 05/07/25 07:49 Pulse Ox 99 05/07/25 07:49 FiO2 28 05/01/25 08:04 Intake & Output 05/06/25 05/07/25 05/07/25 18:59 06:59 18:59 Intake Total 940 260 Output Total 4500 0 Balance -3560 260 Weight 68 kg Intake: IV 40 10 Invasive Line 1 40 10 Intake, IV Titration 100 Amount Calcium Gluconate in NaCl 100 1 gm In Saline 1 100ml. bag @ 100 mls/hr IVPB ONCE ONE Rx#:[id number] Oral 300 250 Hemodialysis 500 Output: Urine 0 Hemodialysis 2500 Hemodialysis Net Amount 2000 - Labs CBC & Chem 7: 05/07/25 05:08 05/07/25 14:24 Labs: Abnormal Lab Results - Last 24 Hours (Table) 05/06/25 05/06/25 05/06/25 Range/Units 10:39 16:30 20:00 RBC (4.10-5.20) 10*6/uL Hgb (12.0-15.0) g/dL Hct (37.2-46.3) % MCV (80.0-97.0) fL MCH (27.0-32.0) pg MCHC (32.0-37.0) g/dL Sodium (137-145) mmol/L Potassium (3.5-5.1) mmol/L Chloride (98-107) mmol/L BUN (7-17) mg/dL Creatinine (0.52-1.04) mg/dL Glucose (74-99) mg/dL POC Glucose (mg/dL) 47 L* 178 H 115 H (70-110) mg/dL 05/07/25 05/07/25 05/07/25 Range/Units 05:08 05:08 06:10 RBC 2.80 L (4.10-5.20) 10*6/uL Hgb 9.0 L (12.0-15.0) g/dL Hct 29.1 L (37.2-46.3) % MCV 103.9 H (80.0-97.0) fL MCH 32.1 H (27.0-32.0) pg MCHC 30.9 L (32.0-37.0) g/dL Sodium 134 L (137-145) mmol/L Potassium 6.6 H* (3.5-5.1) mmol/L Chloride 96 L (98-107) mmol/L BUN 49 H (7-17) mg/dL Creatinine 3.82 H (0.52-1.04) mg/dL Glucose 125 H (74-99) mg/dL POC Glucose (mg/dL) 142 H (70-110) mg/dL Microbiology - Last 24 Hours (Table) 05/06/25 14:25 Gram Stain - Preliminary Mouth Assessment and Plan Assessment: 1. End-stage renal disease maintained on hemodialysis on Wednesday schedule. 2. Hyperkalemia secondary to chronic kidney disease and hyperglycemia. On Lokelma. Also received daily dialysis this week. 3. Volume overload. Left ventricular EF at 60%, RVSP 44, moderate tricuspid regurgitation, small pericardial effusion without tamponade 4. Hypertensive emergency. Improved. 5. Chronic kidney disease mineral bone disease maintained on PhosLo. 6. Diabetes mellitus 7. History of pericardial effusion 8. UTI on antibiotics. Plan: Hemodialysis today. Maintain low-salt diet and fluid restriction. Maintain Lokelma to 3 times daily. Tight blood glucose control. Keep on strict renal diet. Avoid hydralazine due to history of pericardial effusion. Avoid ACEi/ARB and Aldactone due to hyperkalemia. Blood pressure well-controlled when euvolemic Continue clonidine 0.3 mg PO TID, hold if BP < 120/80. Maintain IV Lasix. Minoxidil discontinued. Patient is seen and examined. Agree with resident's findings, assessment and plan.
[2025-05-07 11:48] LABS: Glucose,Whole Blood 87 mg/dL (70-110)
[2025-05-07] MEDS: DEXTROSE 50% SYRINGE 50 ML IVP PRN (11:50)
[2025-05-07 13:21] VITALS: BP 172/75; PULSE 80; TEMP 98.4
[2025-05-07 13:31] LABS: Glucose,Whole Blood 37 mg/dL (70-110)
[2025-05-07 13:31] LABS: Glucose,Whole Blood 206 mg/dL (70-110)
[2025-05-07 15:07] LABS: African American GFR (CKD) 32 (>60 ml/min/1.73 sqM); Anion Gap 4 mmol/L; Blood Urea Nitrogen 24 mg/dL (7-17); Calcium 9.9 mg/dL (8.4-10.2); Carbon Dioxide 31 mmol/L (22-30); Chloride 90 mmol/L (98-107); Glucose 67 mg/dL (74-99); Non-African American GFR(CKD) 27 (>60 ml/min/1.73 sqM); Potassium 4.1 mmol/L (3.5-5.1); Sodium 125 mmol/L (137-145)
[2025-05-07 16:28] LABS: Glucose,Whole Blood 92 mg/dL (70-110)
--- NOTE | 2025-05-07 17:45 | P.PN ---
Subjective Progress Note Date: 05/07/25 05/07/2025, the patient is being seen for a follow-up. She is resting comfortably in bed. She completed a hemodialysis session today with a total of 4 L of ultrafiltration was done. The patient had another session yesterday with a total of 2 L of ultrafiltration was done. Her most recent blood pressure is 137/80. Electrolytes from this morning showed hyperkalemia with a potassium level of 6.6 and this dropped down to 4.1. Sodium levels at 125. BUN 24 with a creatinine of 2.2. The white cell count is 8.2 with a hemoglobin 9 and a platelet count of 174. Most recent chest x-ray from 05/06/2025 was still showing moderate cardiomegaly and mild pulm vascular congestion. No evidence of any pleural effusion. The patient is awake and alert and communicating. Oral intake is quite erratic and variable. The patient did not have breakfast however she states that she wants to have lunch today. She remains on Lasix 80 mg IV every 24 hours. Urine output is minimal. She is also on Lantus insulin 25 units twice daily and NovoLog 8 units with meals and/scale coverage. She is also covered empirically with IV antibiotics and the patient is currently on Levaquin. Her urine culture showed a combination of Enterobacter and Enterococcus faecium/VRE. The patient is also on a combination of Coreg 50 mg p.o. twice daily, Catapres 0.3 mg 3 times daily, and Procardia XL 90 mg p.o. twice a day. Objective - Vital Signs Vital signs: Vital Signs Temp 98.0 F 05/07/25 07:49 Pulse 79 05/07/25 12:21 Resp 18 05/07/25 12:21 BP 158/75 05/07/25 12:00 Pulse Ox 97 05/07/25 12:00 FiO2 28 05/01/25 08:04 Intake & Output 05/06/25 05/07/25 05/07/25 18:59 06:59 18:59 Intake Total 940 260 Output Total 4500 0 Balance -3560 260 Weight 68 kg Intake: IV 40 10 Invasive Line 1 40 10 Intake, IV Titration 100 Amount Calcium Gluconate in NaCl 100 1 gm In Saline 1 100ml. bag @ 100 mls/hr IVPB ONCE ONE Rx#:[id number] Oral 300 250 Hemodialysis 500 Output: Urine 0 Hemodialysis 2500 Hemodialysis Net Amount 2000 - Exam GENERAL EXAM: Reveals 35-year-old female in no distress on nasal cannula 4 L nasal cannula with O2 sat of 97% HEAD: Normocephalic. EYES: Normal reaction of pupils, equal size. NOSE: Clear with pink turbinates. THROAT: No erythema or exudates. NECK: No masses, no JVD. CHEST: No chest wall deformity. LUNGS: Fine crackles at the bases no rhonchi no wheezes CVS: S1 and S2 normal with no audible murmur, regular rhythm. ABDOMEN: No hepatosplenomegaly, normal bowel sounds, no guarding or rigidity. SKIN: No rashes CENTRAL NERVOUS SYSTEM: No focal deficits, tone is normal in all 4 extremities. EXTREMITIES: Trace of bipedal edema - Labs CBC & Chem 7: 05/07/25 05:08 05/07/25 14:24 Labs: Abnormal Lab Results - Last 24 Hours (Table) 05/06/25 05/06/25 05/07/25 Range/Units 16:30 20:00 05:08 RBC 2.80 L (4.10-5.20) 10*6/uL Hgb 9.0 L (12.0-15.0) g/dL Hct 29.1 L (37.2-46.3) % MCV 103.9 H (80.0-97.0) fL MCH 32.1 H (27.0-32.0) pg MCHC 30.9 L (32.0-37.0) g/dL Sodium (137-145) mmol/L Potassium (3.5-5.1) mmol/L Chloride (98-107) mmol/L BUN (7-17) mg/dL Creatinine (0.52-1.04) mg/dL Glucose (74-99) mg/dL POC Glucose (mg/dL) 178 H 115 H (70-110) mg/dL 05/07/25 05/07/25 05/07/25 Range/Units 05:08 06:10 11:24 RBC (4.10-5.20) 10*6/uL Hgb (12.0-15.0) g/dL Hct (37.2-46.3) % MCV (80.0-97.0) fL MCH (27.0-32.0) pg MCHC (32.0-37.0) g/dL Sodium 134 L (137-145) mmol/L Potassium 6.6 H* (3.5-5.1) mmol/L Chloride 96 L (98-107) mmol/L BUN 49 H (7-17) mg/dL Creatinine 3.82 H (0.52-1.04) mg/dL Glucose 125 H (74-99) mg/dL POC Glucose (mg/dL) 142 H 43 L* (70-110) mg/dL 05/07/25 05/07/25 Range/Units 11:25 11:26 RBC (4.10-5.20) 10*6/uL Hgb (12.0-15.0) g/dL Hct (37.2-46.3) % MCV (80.0-97.0) fL MCH (27.0-32.0) pg MCHC (32.0-37.0) g/dL Sodium (137-145) mmol/L Potassium (3.5-5.1) mmol/L Chloride (98-107) mmol/L BUN (7-17) mg/dL Creatinine (0.52-1.04) mg/dL Glucose (74-99) mg/dL POC Glucose (mg/dL) 44 L* 41 L* (70-110) mg/dL Microbiology - Last 24 Hours (Table) 05/06/25 14:25 Gram Stain - Preliminary Mouth Assessment and Plan Plan: Hypertensive emergency with pulmonary edema, improved. Another session of hemodialysis done today and the patient is added 4 L of ultrafiltration. Blood pressure under better control and the patient is currently on a combination of Coreg, clonidine and Procardia XL. Blood pressure is under better control. Acute hypoxic respiratory failure secondary to pulm vessel congestion/edema due to hypertensive heart disease. Currently on 4 L of O2 nasal cannula End-stage renal disease requiring hemodialysis. Acute hyperkalemia secondary to renal failure, improved and potassium level has normalized Possible gram-negative urinary tract infection, secondary to both Enterobacter and Enterococcus species. Doubt any acute infection or active infection the patient remains on Levaquin Left upper extremity pain near graft site, Doppler revealed patent graft. Diabetes mellitus, insulin-dependent, type I. Maintained on Lantus insulin 25 units twice daily along with NovoLog 8 units with meals and/scale coverage. Anemia of chronic disease. History of CVA/TIA. History of optic neuritis. Hypothyroidism. History of depression. History of seizure disorder. Plan: Continue titrating down the oxygen to maintain saturation above 90% Hemodialysis per nephrology Monitor electrolytes including potassium levels Monitor blood pressure increase oral intake as tolerated Will continue to follow Time with Patient: Greater than 30
[2025-05-08 11:26] LABS: Glucose,Whole Blood 47 mg/dL (70-110)
--- NOTE | 2025-05-08 17:07 | P.PN ---
Subjective Progress Note Date: 05/07/25 Principal diagnosis: Reason for follow-up is positive urine culture Patient is a 35-year-old female with a past medical history significant for Diabetes Mellitus, GERD/Reflux, Hypertension, Renal Disease, Seizure Disorder, Thyroid Disorder with multiple admissions at this facility presenting to the hospital on 04/29/2025 for evaluation of increasing shortness of breath did have urine culture obtained in the ER UA was negative cultures came back positive with VRE Enterobacter prompting this consultation. On today's evaluation that is 05/07/2025, patient has been afebrile, patient is breathing comfortably and is currently on room air, patient was undergoing dialysis and sleepy no other issues reported by the physics technician. Patient did have creatinine of 2.27 culture from the most so far negative Objective - Vital Signs Vital signs: Vital Signs Temp 98.0 F 05/07/25 07:49 Pulse 86 05/07/25 11:30 Resp 18 05/07/25 08:00 BP 158/76 05/07/25 07:49 Pulse Ox 100 05/07/25 11:30 FiO2 28 05/01/25 08:04 Intake & Output 05/06/25 05/07/25 05/07/25 18:59 06:59 18:59 Intake Total 940 260 Output Total 4500 0 Balance -3560 260 Weight 68 kg Intake: IV 40 10 Invasive Line 1 40 10 Intake, IV Titration 100 Amount Calcium Gluconate in NaCl 100 1 gm In Saline 1 100ml. bag @ 100 mls/hr IVPB ONCE ONE Rx#:[id number] Oral 300 250 Hemodialysis 500 Output: Urine 0 Hemodialysis 2500 Hemodialysis Net Amount 1999 - Exam GENERAL DESCRIPTION: Middle-age female lying in bed in no distress RESPIRATORY SYSTEM: Unlabored breathing , decreased breath sounds at bases HEART: S1 S2 regular rate and rhythm , ABDOMEN: Soft , no tenderness EXTREMITIES: No edema feet - Labs CBC & Chem 7: 05/07/25 05:08 05/07/25 14:24 Labs: Abnormal Lab Results - Last 24 Hours (Table) 05/06/25 05/06/25 05/07/25 Range/Units 16:30 20:00 05:08 RBC 2.80 L (4.10-5.20) 10*6/uL Hgb 9.0 L (12.0-15.0) g/dL Hct 29.1 L (37.2-46.3) % MCV 103.9 H (80.0-97.0) fL MCH 32.1 H (27.0-32.0) pg MCHC 30.9 L (32.0-37.0) g/dL Sodium (137-145) mmol/L Potassium (3.5-5.1) mmol/L Chloride (98-107) mmol/L BUN (7-17) mg/dL Creatinine (0.52-1.04) mg/dL Glucose (74-99) mg/dL POC Glucose (mg/dL) 178 H 115 H (70-110) mg/dL 05/07/25 05/07/25 05/07/25 Range/Units 05:08 06:10 11:24 RBC (4.10-5.20) 10*6/uL Hgb (12.0-15.0) g/dL Hct (37.2-46.3) % MCV (80.0-97.0) fL MCH (27.0-32.0) pg MCHC (32.0-37.0) g/dL Sodium 134 L (137-145) mmol/L Potassium 6.6 H* (3.5-5.1) mmol/L Chloride 96 L (98-107) mmol/L BUN 49 H (7-17) mg/dL Creatinine 3.82 H (0.52-1.04) mg/dL Glucose 125 H (74-99) mg/dL POC Glucose (mg/dL) 142 H 43 L* (70-110) mg/dL 05/07/25 05/07/25 Range/Units 11:25 11:26 RBC (4.10-5.20) 10*6/uL Hgb (12.0-15.0) g/dL Hct (37.2-46.3) % MCV (80.0-97.0) fL MCH (27.0-32.0) pg MCHC (32.0-37.0) g/dL Sodium (137-145) mmol/L Potassium (3.5-5.1) mmol/L Chloride (98-107) mmol/L BUN (7-17) mg/dL Creatinine (0.52-1.04) mg/dL Glucose (74-99) mg/dL POC Glucose (mg/dL) 44 L* 41 L* (70-110) mg/dL Microbiology - Last 24 Hours (Table) 05/06/25 14:25 Gram Stain - Preliminary Mouth Assessment and Plan (1) Positive urine culture Status: Acute Code(s): R82.79 - OTHER ABNORMAL FINDINGS ON MICROBIOLOG EXAMINATION OF URINE SNOMED Code(s): 794547586 Plan: 1patient with a positive urine culture with VRE and Enterobacter in this patient who is a dialysis dependent hardly makes any urine with a corresponding UA was cloudy but without any leukocyte esterase nitrite or WBC more likely representing contamination however did not show infection as the patient noted to be afebrile and white count is normal 2still waiting for repeat UA if negative there will be no need for any systemic antibiotic 3patient did have a left lower jaw infected tooth that has fell off culture have been obtained at the base results which are currently pending we will monitor closely off antibiotic therapy Dictation was produced using [employer] dictation software. please excuse any g rammatical, word or spelling errors. Time with Patient: Less than 30
--- NOTE | 2025-05-13 18:54 | P.DS ---
Providers Date of admission: 04/29/25 12:47 Expected date of discharge: 05/07/25 Attending physician: Dahiana Chan Consults: 04/29/25 12:47 Consult Physician Stat Consulting Provider: Praneeth Thomson Consult Reason/Comments: acute htn emergency, bipap dependant resp failure, hyperkalemia Do you want consulting provider notified?: Already Contacted 04/29/25 12:53 Consult Physician Urgent Consulting Provider: Niall Clifford Consult Reason/Comments: htn emergency, esrd on hd Do you want consulting provider notified?: Already Contacted 04/29/25 22:38 Consult Physician Routine Consulting Provider: Rachid Aquino Consult Reason/Comments: chf, h/o pericardial effusion Do you want consulting provider notified?: Yes 05/03/25 18:59 Consult Physician Urgent Consulting Provider: Marianna Rm Consult Reason/Comments: uti, vre Do you want consulting provider notified?: Yes Primary care physician: Stated None Hospital Course: Final diagnosis Congestive heart failure acute exacerbation with acute on chronic diastolic dysfunction Acute bronchitis, tracheobronchitis, purulent Hypertensive urgency and accelerated hypertension Positive urine culture with Enterococcus faecium VRE, possible acute urinary tract infection on admission, has received adequate antibiotics and will not require antibiotics on discharge History of small to moderate pericardial effusion recently Diabetes mellitus, type I, brittle diabetic with extremely uncontrolled hyper and hypoglycemia Gastroparesis history Seizure disorder GI prophylaxis DVT prophylaxis Full code Discharge disposition Patient is being discharged in a stable condition with guarded prognosis to home. Patient will follow-up with Dr. Nieto in the outpatient setting upon discharge. Patient is to continue with hemodialysis and outpatient follow-up with nephrology as scheduled. Total time taken is greater than 35 minutes. Hospital course This is a 35-year-old female who was recently admitted with congestive heart failure acute exacerbation along with cough and acute bronchitis with tracheobronchitis being closely monitored. Patient maintained on antibiotics along with continued hemodialysis. Patient did have abnormal urine and VRE in the urine with infectious disease following had been maintained on antibiotics and will not require antibiotics on discharge as patient has received adequate antibiotic therapy. Patient has been instructed to follow-up with primary care provider on discharge along with other consultations. Continue with hemodialysis 4 days weekly as scheduled. Currently no reports of chest pain, shortness of breath, or palpitations. Patient is afebrile. No reports of nausea or vomiting and patient is tolerating diet. Patient will be discharged home today. High risk for readmissions given significant comorbidities and noncompliance outpatient follow-up. Physical exam: Gen: This is a 35-year-old female who is awake, alert and oriented x 3, well- developed, appears elderly, chronically ill-appearing HEENT: Head is atraumatic, normocephalic. Pupils equal, round. Sclerae is anicteric. NECK: Supple. No JVD. No lymphadenopathy. No thyromegaly. LUNGS: Diminished breath sounds bilaterally otherwise clear to auscultation. No wheezes or rhonchi. Coarse bronchial cough noted at times no intercostal retractions. HEART: Regular rate and rhythm. No murmur. ABDOMEN: Soft. Bowel sounds are present. No masses. No tenderness. EXTREMITIES: No pedal edema. No calf tenderness. NEUROLOGICAL: Patient is awake, alert and oriented x3. Cranial nerves 2 through 12 are grossly intact. Please refer to medication reconciliation sheet for a list of medications. The impression and plan of care has been dictated by Margie Urbina, Nurse Practitioner as directed. Dr. Connie MD I have performed a history and examination and MDM of this patient, discussed the same with the dictator, and agree with the dictator's assessment and plan as written ,documented as a scribe. Based on total visit time, I have performed more than 50% of the visit. Patient Condition at Discharge: Fair Plan - Discharge Summary Discharge Rx Participant: No New Discharge Prescriptions: New Bacitracin Zinc Oint 1 applic TOPICAL TID each NIFEdipine XL [Procardia XL] 90 mg PO Q12HR #60 tab Ondansetron Odt [Zofran Odt] 4 mg PO Q8HR PRN #10 tab PRN Reason: Nausea Pantoprazole [Protonix] 40 mg PO AC-BRKFST #30 tab Continue Lidocaine 4% Patch 1 patch TOPICAL DAILY@0800 Ipratropium-Albuterol Nebulize [Duoneb 0.5 mg-3 mg/3 ml Soln] 3 ml INHALATION RT-TID PRN each PRN Reason: Shortness Of Breath Or Wheezing Biotene Dry Mouth/Throat 10 ml PO BID PRN PRN Reason: DRY MOUTH/THROAT Acetaminophen [Tylenol] 650 mg PO Q4H PRN PRN Reason: Pain Or Fever > 100.5 Loratadine [Claritin] 5 mg PO DAILY tab Sertraline [Zoloft] 200 mg PO DAILY@0800 Folic Acid/Vit B Complex and C [Davina-Mayte Tablet] 0.8 mg PO DAILY Isosorbide Mononitrate ER [Imdur] 120 mg PO DAILY #60 tab Gabapentin [Neurontin] 100 mg PO BID 30 Days #60 cap Linagliptin [Tradjenta] 5 mg PO DAILY #30 tab cloNIDine HCL [Catapres] 0.3 mg PO TID Insulin Lispro [humaLOG Kwikpen] See Protocol SQ AC-TID carvediloL [Coreg] 50 mg PO BID #120 tablet Lidocaine 5% Cream 1 applic TOPICAL MOTUWETHSA ALPRAZolam [Xanax] 0.25 mg PO BID PRN PRN Reason: Anxiety INSULIN LISPRO (HumaLOG) [HumaLOG] 5 unit SQ AC-TID each Docusate [Colace] 100 mg PO DAILY@0800 polyethylene glycoL 3350 [Miralax] 17 gm PO AC-LUNCH #527 gm Melatonin 1 mg PO HS tab Aspirin 81 mg PO DAILY@0800 #30 tab Famotidine [Pepcid] 20 mg PO BID #60 tab Levothyroxine Sodium [Synthroid] 175 mcg PO DAILY@0600 traZODone HCL [Desyrel] 50 mg PO HS #20 tab Ipratropium-Albuterol Nebulize [Duoneb 0.5 mg-3 mg/3 ml Soln] 3 ml INHALATION RT-TID #100 each Calcium Acetate [PhosLo] 1,334 mg PO TID-W/MEALS 30 Days #360 tab Divalproex Sodium [Depakote] 500 mg PO BID@0800,1700 Methoxy Peg-Epoetin Beta [Mircera] 100 mcg SQ Q14D Insulin Glargine (Lantus) [Lantus Vial] 11 unit SQ BID #0 oxyCODONE HCL/ACETAMINOPHEN [Percocet 10-325 mg] 1 tab PO DAILY PRN PRN Reason: Pain hydrOXYzine HCL [Atarax] 25 mg PO TID PRN #10 tab PRN Reason: Itching Sodium Zirconium Cyclosilicate [Lokelma] 10 gm PO DAILY #30 Discontinued Atorvastatin [Lipitor] 40 mg PO HS #0 NIFEdipine XL [Procardia XL] 60 mg PO BID 30 Days #60 tab Discharge Medication List Docusate [Colace] 100 mg PO DAILY@0800 02/05/24 [History] Lidocaine 4% Patch 1 patch TOPICAL DAILY@0800 02/05/24 [History] Ipratropium-Albuterol Nebulize [Duoneb 0.5 mg-3 mg/3 ml Soln] 3 ml INHALATION RT-TID PRN each 02/14/24 [Rx] polyethylene glycoL 3350 [Miralax] 17 gm PO AC-LUNCH #527 gm 02/14/24 [Rx] Acetaminophen [Tylenol] 650 mg PO Q4H PRN 02/18/24 [History] Biotene Dry Mouth/Throat 10 ml PO BID PRN 02/18/24 [History] Melatonin 1 mg PO HS tab 02/25/24 [Rx] Loratadine [Claritin] 5 mg PO DAILY tab 03/30/24 [Rx] Aspirin 81 mg PO DAILY@0800 #30 tab 05/18/24 [Rx] Famotidine [Pepcid] 20 mg PO BID #60 tab 07/11/24 [Rx] Levothyroxine Sodium [Synthroid] 175 mcg PO DAILY@0600 08/14/24 [History] Sertraline [Zoloft] 200 mg PO DAILY@0800 08/14/24 [History] Folic Acid/Vit B Complex and C [Davina-Mayte Tablet] 0.8 mg PO DAILY 12/20/24 [History] traZODone HCL [Desyrel] 50 mg PO HS #20 tab 01/01/25 [Rx] Isosorbide Mononitrate ER [Imdur] 120 mg PO DAILY #60 tab 01/02/25 [Rx] Gabapentin [Neurontin] 100 mg PO BID 30 Days #60 cap 01/03/25 [Rx] Linagliptin [Tradjenta] 5 mg PO DAILY #30 tab 01/03/25 [Rx] Insulin Lispro [humaLOG Kwikpen] See Protocol SQ AC-TID 01/22/25 [History] cloNIDine HCL [Catapres] 0.3 mg PO TID 01/22/25 [History] carvediloL [Coreg] 50 mg PO BID #120 tablet 02/15/25 [Rx] Calcium Acetate [PhosLo] 1,334 mg PO TID-W/MEALS 30 Days #360 tab 02/19/25 [Rx] Ipratropium-Albuterol Nebulize [Duoneb 0.5 mg-3 mg/3 ml Soln] 3 ml INHALATION RT-TID #100 each 02/19/25 [Rx] ALPRAZolam [Xanax] 0.25 mg PO BID PRN 02/26/25 [History] Divalproex Sodium [Depakote] 500 mg PO BID@0800,1700 02/26/25 [History] Lidocaine 5% Cream 1 applic TOPICAL MOTUWETHSA 02/26/25 [History] Methoxy Peg-Epoetin Beta [Mircera] 100 mcg SQ Q14D 02/26/25 [History] Insulin Glargine (Lantus) [Lantus Vial] 11 unit SQ BID #0 03/18/25 [Rx] oxyCODONE HCL/ACETAMINOPHEN [Percocet 10-325 mg] 1 tab PO DAILY PRN 04/16/25 [History] hydrOXYzine HCL [Atarax] 25 mg PO TID PRN #10 tab 04/24/25 [Rx] INSULIN LISPRO (HumaLOG) [HumaLOG] 5 unit SQ AC-TID each 04/27/25 [Rx] Sodium Zirconium Cyclosilicate [Lokelma] 10 gm PO DAILY #30 04/27/25 [Rx] Bacitracin Zinc Oint 1 applic TOPICAL TID each 05/07/25 [Rx] NIFEdipine XL [Procardia XL] 90 mg PO Q12HR #60 tab 05/07/25 [Rx] Ondansetron Odt [Zofran Odt] 4 mg PO Q8HR PRN #10 tab 05/07/25 [Rx] Pantoprazole [Protonix] 40 mg PO AC-BRKFST #30 tab 05/07/25 [Rx] Follow up Appointment(s)/Referral(s): Azeem Avila DO [STAFF PHYSICIAN] - 1 Week [facility] [NON-STAFF] - 1 Week Rush Marroquin MD [RESIDENT] - 1 Week Activity/Diet/Wound Care/Special Instructions: Patient needs hospital bed at time of discharge as patient needs head of bed elevated greater than 30degrees at all times to alleviate shortness of breath from CHF Continue with hemodialysis as scheduled Follow-up with nephrology outpatient Contact your medical insurance to inquire about a dental surgeon that is excepting your insurance to have teeth removed Follow-up with primary care provider on discharge Continue taking medications as prescribed Follow heart healthy renal diabetic diet Discharge/Stand Alone Forms: Who Do I Call? Discharge Disposition: HOME WITH HOME HEALTH SERVICES
== END 2025-05-07 18:35 | disposition home health service (06) | DRG 291 ==
LOC: EC 09:12 → 2SICU 12:47 → 3SCARD 04-30 09:41 → 2SICU 05-01 07:10 → 3SCARD 05-02 09:12
PROVIDERS: ADMIT Hospitalist; ATTEND Hospitalist
PROC: 5A09357 Assistance with Respiratory Ventilation, Less than 24 Consecutive Hours, Continuous Positive Airway Pressure (ICD-10-PCS; principal; 2025-04-29)
PROC: 5A1D70Z Performance of Urinary Filtration, Intermittent, Less than 6 Hours Per Day (ICD-10-PCS; 2025-04-29)
PROC: 05H933Z Insertion of Infusion Device into Right Brachial Vein, Percutaneous Approach (ICD-10-PCS; 2025-05-07 10:15)
DX: I13.2 Hypertensive heart and chronic kidney disease with heart failure and with stage 5 chronic kidney disease, or end stage renal disease (principal); I50.33 Acute on chronic diastolic (congestive) heart failure; N18.6 End stage renal disease; I31.39 Other pericardial effusion (noninflammatory); D63.1 Anemia in chronic kidney disease; B95.2 Enterococcus as the cause of diseases classified elsewhere; D63.8 Anemia in other chronic diseases classified elsewhere; Z99.2 Dependence on renal dialysis; E10.65 Type 1 diabetes mellitus with hyperglycemia; G40.909 Epilepsy, unspecified, not intractable, without status epilepticus; E03.9 Hypothyroidism, unspecified; I16.0 Hypertensive urgency; N39.0 Urinary tract infection, site not specified; E10.43 Type 1 diabetes mellitus with diabetic autonomic (poly)neuropathy; E10.22 Type 1 diabetes mellitus with diabetic chronic kidney disease; E10.319 Type 1 diabetes mellitus with unspecified diabetic retinopathy without macular edema; Z79.4 Long term (current) use of insulin; Z79.890 Hormone replacement therapy; E87.5 Hyperkalemia; K31.84 Gastroparesis; J20.9 Acute bronchitis, unspecified; E78.5 Hyperlipidemia, unspecified; H54.7 Unspecified visual loss; Z79.82 Long term (current) use of aspirin; Z79.84 Long term (current) use of oral hypoglycemic drugs; Z79.899 Other long term (current) drug therapy; Z82.49 Family history of ischemic heart disease and other diseases of the circulatory system; Z86.73 Personal history of transient ischemic attack (TIA), and cerebral infarction without residual deficits; Z88.1 Allergy status to other antibiotic agents; Z88.8 Allergy status to other drugs, medicaments and biological substances; Z88.6 Allergy status to analgesic agent; Z91.030 Bee allergy status; M89.8X9 Other specified disorders of bone, unspecified site
CPT/HCPCS: 36410; 36415; 71045; 76937; 80048; 80053; 80306; 81001; 83605; 83735; 83880; 84132; 84484; 84703; 85025; 85027; 85610; 85730; 87040; 87070; 87075; 87077; 87086; 87186; 87205; 90935; 93005; 93308; 94640; 94660; 94760; 96365; 96366; 96367; 96375; 96376; 99291

== ENCOUNTER 2025-05-08 11:20 | Emergency (ER) | payer MEDICARE ==
[2025-05-08] MEDS: DEXTROSE 50% SYRINGE 50 ML IVP STA ×2 (11:33→11:57)
[2025-05-08 11:57] LABS: Basophils # (A) 0.07 10*3/uL (0.00-0.10); Basophils % (A) 0.8 %; Eosinophils # (A) 0.94 10*3/uL (0.04-0.35); Eosinophils % (A) 10.4 %; HCT 28.3 % (37.2-46.3); HGB 9.4 g/dL (12.0-15.0); Lymphocytes # (A) 0.52 10*3/uL (0.90-5.00); Lymphocytes % (A) 5.7 %; MCH 32.9 pg (27.0-32.0); MCHC 33.2 g/dL (32.0-37.0); Mean Platelet Volume 10.6 fL (9.5-12.2); Monocytes # (A) 0.84 10*3/uL (0.20-1.00); Monocytes % (A) 9.3 %; Neutrophils # (A) 6.66 10*3/uL (1.80-7.70); Neutrophils % (A) 73.6 %; Platelet Count 197 10*3/uL (140-440); RBC 2.86 10*6/uL (4.10-5.20); RDW 16.5 % (11.5-14.5); WBC 9.05 10*3/uL (4.50-10.00)
[2025-05-08 11:58] LABS: Glucose,Whole Blood 58 mg/dL (70-110)
[2025-05-08] MEDS: HYDROmorphone 1 MG/ML 1 ML SYRINGE IVP STA (11:59)
--- NOTE | 2025-05-08 12:07 | ED ---
General Adult HPI - General Chief complaint: Recheck/Abnormal Lab/Rx Stated complaint: Hypertension, hypoglycemia Time Seen by Provider: 05/08/25 11:25 Source: patient, EMS, RN notes reviewed, old records reviewed Mode of arrival: EMS Limitations: no limitations - History of Present Illness Initial comments: 35-year-old female with end-stage renal disease, type 1 diabetes presenting from dialysis with hypoglycemia and hypertension. Patient complains of headache. Blood sugar was apparently in the 30s and patient had taken oral glucose and was given an amp of dextrose. She states she did not take insulin today. She also complains of a headache which is chronic in nature and unchanged from typical headache. No chest pain or difficulty breathing. - Related Data Home Medications Medication Instructions Recorded Confirmed Docusate [Colace] 100 mg PO DAILY@0800 02/05/24 05/08/25 Lidocaine 4% Patch 1 patch TOPICAL DAILY@0800 02/05/24 05/08/25 Acetaminophen [Tylenol] 650 mg PO Q4H PRN 02/18/24 05/08/25 Biotene Dry Mouth/Throat 10 ml PO BID PRN 02/18/24 05/08/25 Levothyroxine Sodium [Synthroid] 175 mcg PO DAILY@0600 08/14/24 05/08/25 Sertraline [Zoloft] 200 mg PO DAILY@0800 08/14/24 05/08/25 Folic Acid/Vit B Complex and C 0.8 mg PO DAILY 12/20/24 05/08/25 [Davina-Mayte Tablet] Insulin Lispro [humaLOG Kwikpen] See Protocol SQ AC-TID 01/22/25 05/08/25 cloNIDine HCL [Catapres] 0.3 mg PO TID 01/22/25 05/08/25 ALPRAZolam [Xanax] 0.25 mg PO BID PRN 02/26/25 05/08/25 Divalproex Sodium [Depakote] 500 mg PO BID@0800,1700 02/26/25 05/08/25 Lidocaine 5% Cream 1 applic TOPICAL MOTUWETHSA 02/26/25 05/08/25 Methoxy Peg-Epoetin Beta [Mircera] 100 mcg SQ Q14D 02/26/25 05/08/25 oxyCODONE HCL/ACETAMINOPHEN 1 tab PO DAILY PRN 04/16/25 05/08/25 [Percocet 10-325 mg] Previous Rx's Medication Instructions Recorded Ipratropium-Albuterol Nebulize 3 ml INHALATION RT-TID PRN each 02/14/24 [Duoneb 0.5 mg-3 mg/3 ml Soln] polyethylene glycoL 3350 [Miralax] 17 gm PO AC-LUNCH #527 gm 02/14/24 Melatonin 1 mg PO HS tab 02/25/24 Loratadine [Claritin] 5 mg PO DAILY tab 03/30/24 Aspirin 81 mg PO DAILY@0800 #30 tab 05/18/24 Famotidine [Pepcid] 20 mg PO BID #60 tab 07/11/24 traZODone HCL [Desyrel] 50 mg PO HS #20 tab 01/01/25 Isosorbide Mononitrate ER [Imdur] 120 mg PO DAILY #60 tab 01/02/25 Gabapentin [Neurontin] 100 mg PO BID 30 Days #60 cap 01/03/25 Linagliptin [Tradjenta] 5 mg PO DAILY #30 tab 01/03/25 carvediloL [Coreg] 50 mg PO BID #120 tablet 02/15/25 Calcium Acetate [PhosLo] 1,334 mg PO TID-W/MEALS 30 Days 02/19/25 #360 tab Ipratropium-Albuterol Nebulize 3 ml INHALATION RT-TID #100 each 02/19/25 [Duoneb 0.5 mg-3 mg/3 ml Soln] Insulin Glargine (Lantus) [Lantus 11 unit SQ BID #0 03/18/25 Vial] hydrOXYzine HCL [Atarax] 25 mg PO TID PRN #10 tab 04/24/25 INSULIN LISPRO (HumaLOG) [HumaLOG] 5 unit SQ AC-TID each 04/27/25 Sodium Zirconium Cyclosilicate 10 gm PO DAILY #30 04/27/25 [Lokelma] Bacitracin Zinc Oint 1 applic TOPICAL TID each 05/07/25 NIFEdipine XL [Procardia XL] 90 mg PO Q12HR #60 tab 05/07/25 Ondansetron Odt [Zofran Odt] 4 mg PO Q8HR PRN #10 tab 05/07/25 Pantoprazole [Protonix] 40 mg PO AC-BRKFST #30 tab 05/07/25 Allergies Allergy/AdvReac Type Severity Reaction Status Date / Time propoxyphene Allergy Rash/Hives Verified 05/08/25 13:27 [From Darvocet-N] tramadol Allergy Anaphylaxis Verified 05/08/25 13:27 ampicillin [From Unasyn] AdvReac Itching Verified 05/08/25 13:27 ibuprofen [From Motrin] AdvReac unable to Verified 05/08/25 13:27 take due to kidney disease sulbactam [From Unasyn] AdvReac Itching Verified 05/08/25 13:27 venom-honey bee AdvReac passes out Verified 05/08/25 13:27 [bee venom (honey bee)] Review of Systems ROS Statement: Those systems with pertinent positive or pertinent negative responses have been documented in the HPI. ROS Other: All systems not noted in ROS Statement are negative. 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 Past Anesthesia/Blood Transfusion Reactions: Previous Problems w/ Anesthesia Additional Past Anesthesia/Blood Transfusion Reaction / Comment(s): confusion Past Psychological History: Anxiety, Depression Smoking Status: Former smoker Past Alcohol Use History: None Reported Past Drug Use History: Marijuana - Past Family History Father History Unknown: Yes Family Medical History: Unable to Obtain Mother History Unknown: Yes Family Medical History: No Reported History Grandfather History Unknown: Yes Family Medical History: Coronary Artery Disease (CAD) Additional Family Medical History / Comment(s): Diabetes mellitus type 2 General Exam Limitations: no limitations General appearance: alert, in no apparent distress Head exam: Present: atraumatic, normocephalic Eye exam: Present: normal appearance, PERRL ENT exam: Present: normal exam Neck exam: Present: normal inspection. Absent: tenderness, meningismus Respiratory exam: Present: normal lung sounds bilaterally. Absent: respiratory distress, wheezes Cardiovascular Exam: Present: regular rate, normal rhythm GI/Abdominal exam: Present: soft. Absent: distended, tenderness Extremities exam: Present: normal inspection Neurological exam: Present: alert, oriented X3, CN II-XII intact. Absent: motor sensory deficit Psychiatric exam: Present: normal affect, normal mood Skin exam: Present: warm, dry, intact Course Vital Signs 05/08/25 05/08/25 05/08/25 11:25 12:00 12:27 Temperature 98 F Pulse Rate 84 83 86 Respiratory 20 20 20 Rate Blood Pressure 170/93 178/89 169/100 O2 Sat by Pulse 98 96 94 L Oximetry Medical Decision Making - Medical Decision Making Was pt. sent in by a medical professional or institution (, PA, BAGEL MAKER, urgent care, hospital, or [facility]...) When possible be specific @ -No Did you speak to anyone other than the patient for history (EMS, parent, family, police, friend...)? What history was obtained from this source @Paramedics Did you review nursing and triage notes (agree or disagree)? Why? @ -I reviewed and agree with nursing and triage notes Were old charts reviewed (outside hosp., previous admission, EMS record, old EKG, old radiological studies, urgent care reports/EKG's, [facility] records)? Report findings @ -No old charts were reviewed Differential Weakness: Hypoglycemia, shock, sepsis, hyponatremia, anemia, infection, PA, ETOH, adverse medicine reaction, overdose, stroke, this is not meant to be an all-inclusive list. EKG interpreted by me (3pts min.). @ -Sinus rhythm rate of 84, DC interval 150, QRS duration 90, QTc [address] segment changes. X-rays interpreted by me (1pt min.). @ -[Chest x-ray showing mild CHF CT interpreted by me (1pt min.). @ -None done U/S interpreted by me (1pt. min.). @ -None done What testing was considered but not performed or refused? (CT, X-rays, U/S, labs)? Why? @ -None What meds were considered but not given or refused? Why? @ -None Did you discuss the management of the patient with other professionals (professionals i.e. , PA, BAGEL MAKER, lab, RT, psych nurse, licensed master social worker, business machine mechanic, teacher, guest services officer, wrapper caser)? Give summary @ -No Was smoking cessation discussed for >3mins.? @ -No Was critical care preformed (if so, how long)? @ -No Were there social determinants of health that impacted care today? How? (Homelessness, low income, unemployed, alcoholism, drug addiction, transportation, low edu. Level, literacy, decrease access to med. care, correction, r ehab)? @ -No Was there de-escalation of care discussed even if they declined (Discuss DNR or withdrawal of care, Hospice)? DNR status @ -No What co-morbidities impacted this encounter? (DM, HTN, Smoking, COPD, CAD, Cancer, CVA, ARF, Chemo, Hep., AIDS, mental health diagnosis, sleep apnea, morbid obesity)? @ -Type I diabetic, end-stage renal disease Was patient admitted / discharged? Hospital course, mention meds given and route, prescriptions, significant lab abnormalities, going to OR and other pertinent info. @ -[35-year-old female presenting with hypoglycemia from dialysis. Patient is hypertensive with otherwise stable vitals. Blood sugar is monitored in the emergency department for several hours. This does stabilize. Patient is able to eat and drink. Her headache is improved. Undiagnosed new problem with uncertain prognosis? @ -No Drug Therapy requiring intensive monitoring for toxicity (Heparin, Nitro, Insulin, Cardizem)? @ -No Were any procedures done? @ -No Diagnosis/symptom? @ -Hypoglycemia Acute, or Chronic, or Acute on Chronic? @Acute on chronic Uncomplicated (without systemic symptoms) or Complicated (systemic symptoms)? @ -Default Side effects of treatment? @ -No Exacerbation, Progression, or Severe Exacerbation? @ -No Poses a threat to life or bodily function? How? (Chest pain, USA, PA, pneumonia, PE, COPD, DKA, ARF, appy, cholecystitis, CVA, Diverticulitis, Homicidal, Suicidal, threat to staff... and all critical care pts) @ -Low risk at this time - Lab Data Result diagrams: 05/08/25 11:36 05/08/25 11:36 Lab Results 05/08/25 05/08/25 05/08/25 Range/Units 11:36 11:36 11:54 WBC 9.05 (4.50-10.00) 10*3/uL RBC 2.86 L (4.10-5.20) 10*6/uL Hgb 9.4 L (12.0-15.0) g/dL Hct 28.3 L (37.2-46.3) % MCV 99.0 H (80.0-97.0) fL MCH 32.9 H (27.0-32.0) pg MCHC 33.2 (32.0-37.0) g/dL Plt Count 197 (140-440) 10*3/uL MPV 10.6 (9.5-12.2) fL Immature Gran % (Auto) 0.2 % Neutrophils % 73.6 % Lymphocytes % 5.7 % Monocytes % 9.3 % Eosinophils % 10.4 % Basophils % 0.8 % Immature Gran # 0.02 (0.00-0.04) 10*3/uL Neutrophils # 6.66 (1.80-7.70) 10*3/uL Lymphocytes # 0.52 L (0.90-5.00) 10*3/uL Monocytes # 0.84 (0.20-1.00) 10*3/uL Eosinophils # 0.94 H (0.04-0.35) 10*3/uL Basophils # 0.07 (0.00-0.10) 10*3/uL Sodium 138 (137-145) mmol/L Potassium 3.6 (3.5-5.1) mmol/L Chloride 90 L (98-107) mmol/L Carbon Dioxide 41 H* (22-30) mmol/L Anion Gap 7 mmol/L BUN 14 (7-17) mg/dL Creatinine 1.68 H (0.52-1.04) mg/dL Est GFR (CKD-EPI)AfAm 45 (>60 ml/min/1.73 sqM) Est GFR (CKD-EPI)NonAf 39 (>60 ml/min/1.73 sqM) Glucose 111 H (74-99) mg/dL POC Glucose (mg/dL) 58 L (70-110) mg/dL POC Glu Manifold Builder SALAZAR Gomez Calcium 9.2 (8.4-10.2) mg/dL Total Bilirubin 0.7 (0.2-1.3) mg/dL AST 137 H (14-36) U/L ALT 117 H (4-34) U/L Alkaline Phosphatase 154 H (38-126) U/L Total Protein 6.6 (6.3-8.2) g/dL Albumin 4.1 (3.5-5.0) g/dL 05/08/25 05/08/25 Range/Units 12:38 13:39 WBC (4.50-10.00) 10*3/uL RBC (4.10-5.20) 10*6/uL Hgb (12.0-15.0) g/dL Hct (37.2-46.3) % MCV (80.0-97.0) fL MCH (27.0-32.0) pg MCHC (32.0-37.0) g/dL Plt Count (140-440) 10*3/uL MPV (9.5-12.2) fL Immature Gran % (Auto) % Neutrophils % % Lymphocytes % % Monocytes % % Eosinophils % % Basophils % % Immature Gran # (0.00-0.04) 10*3/uL Neutrophils # (1.80-7.70) 10*3/uL Lymphocytes # (0.90-5.00) 10*3/uL Monocytes # (0.20-1.00) 10*3/uL Eosinophils # (0.04-0.35) 10*3/uL Basophils # (0.00-0.10) 10*3/uL Sodium (137-145) mmol/L Potassium (3.5-5.1) mmol/L Chloride (98-107) mmol/L Carbon Dioxide (22-30) mmol/L Anion Gap mmol/L BUN (7-17) mg/dL Creatinine (0.52-1.04) mg/dL Est GFR (CKD-EPI)AfAm (>60 ml/min/1.73 sqM) Est GFR (CKD-EPI)NonAf (>60 ml/min/1.73 sqM) Glucose (74-99) mg/dL POC Glucose (mg/dL) 89 79 (70-110) mg/dL POC Glu Manifold Builder ID Nickolas Ruelas Calcium (8.4-10.2) mg/dL Total Bilirubin (0.2-1.3) mg/dL AST (14-36) U/L ALT (4-34) U/L Alkaline Phosphatase (38-126) U/L Total Protein (6.3-8.2) g/dL Albumin (3.5-5.0) g/dL Disposition Clinical Impression: Hypoglycemia Disposition: HOME SELF-CARE Condition: Fair Instructions (If sedation given, give patient instructions): Hypoglycemia in a Person with Diabetes (DC) Is patient prescribed a controlled substance at d/c from ED?: No Referrals: None,Stated [Primary Care Provider] - 1-2 days Charlene Lim MD [STAFF PHYSICIAN] - 1-2 days Time of Disposition: 13:51
[2025-05-08 12:21] LABS: ALT 117 U/L (4-34); AST 137 U/L (14-36); African American GFR (CKD) 45 (>60 ml/min/1.73 sqM); Albumin 4.1 g/dL (3.5-5.0); Alkaline Phosphatase 154 U/L (38-126); Blood Urea Nitrogen 14 mg/dL (7-17); Calcium 9.2 mg/dL (8.4-10.2); Chloride 90 mmol/L (98-107); Glucose 111 mg/dL (74-99); Non-African American GFR(CKD) 39 (>60 ml/min/1.73 sqM); Potassium 3.6 mmol/L (3.5-5.1); Sodium 138 mmol/L (137-145); Total Bilirubin 0.7 mg/dL (0.2-1.3); Total Protein 6.6 g/dL (6.3-8.2)
[2025-05-08 12:28] LABS: Anion Gap 7 mmol/L
[2025-05-08 12:36] LABS: Carbon Dioxide 41 mmol/L (22-30)
[2025-05-08 12:40] LABS: Glucose,Whole Blood 89 mg/dL (70-110)
--- NOTE | 2025-05-08 13:05 | XR ---
EXAMINATION TYPE: XR chest 2V DATE OF EXAM: 05/08/2025 12:20 PM COMPARISON: 05/06/2025 CLINICAL INDICATION: Female, 35 years old with history of WAQAR, TECHNIQUE: XR chest 2V view(s) obtained. FINDINGS: The heart size is enlarged. The pulmonary vasculature is prominent. Mild diffuse increased lung markings are present may be some mild volume overload. IMPRESSION: 1. Clinical correlation recommended for developing congestive heart failure. [facility], , 05/08/2025 1:03 PM
[2025-05-08 13:41] LABS: Glucose,Whole Blood 79 mg/dL (70-110)
[2025-05-08 14:04] VITALS: RESP 18
[2025-05-08] MEDS: ONDANSETRON 4 MG/2 ML VIAL IVP STA (14:22)
[2025-05-08] MEDS: HYDROmorphone 0.5 MG/0.5 ML SYRINGE IVP STA (14:23)
[2025-05-08 14:38] LABS: Glucose,Whole Blood 104 mg/dL (70-110)
[2025-05-08] MEDS: ALPRAZolam 0.5 MG TAB PO STA (17:17)
[2025-05-08 17:40] LABS: Glucose,Whole Blood 205 mg/dL (70-110)
[2025-05-08] MEDS: cloNIDine HCL 0.1 MG TAB PO SCH (19:03)
[2025-05-08] MEDS: carvediloL 12.5 MG TAB PO SCH (19:04)
[2025-05-08 20:09] VITALS: BP 182/87; PULSE 87; TEMP 98.2
== END 2025-05-08 20:09 | disposition home or self-care (01) ==
LOC: EC 11:20
DX: E10.649 Type 1 diabetes mellitus with hypoglycemia without coma (principal); E10.22 Type 1 diabetes mellitus with diabetic chronic kidney disease; I12.0 Hypertensive chronic kidney disease with stage 5 chronic kidney disease or end stage renal disease; N18.6 End stage renal disease; Z87.891 Personal history of nicotine dependence; Z91.030 Bee allergy status; Z88.0 Allergy status to penicillin; Z88.5 Allergy status to narcotic agent; Z88.6 Allergy status to analgesic agent; Z88.8 Allergy status to other drugs, medicaments and biological substances; Z99.2 Dependence on renal dialysis
CPT/HCPCS: 36415; 93005; 80053; 85025; 71046; 99285; 96374; 96375 ×2; 96376; J2405; J1171 ×2

== ENCOUNTER 2025-05-09 15:31 | Emergency (ER) | payer MEDICARE ==
--- NOTE | 2025-05-09 16:17 | ED ---
General Adult HPI - General Chief complaint: Shortness of Breath Stated complaint: WAQAR, Abd pain Time Seen by Provider: 05/09/25 15:48 Source: patient, EMS, RN notes reviewed Mode of arrival: EMS Limitations: no limitations - History of Present Illness Initial comments: This is a 35-year-old female with a history of type 1 diabetes, ESRD on hemodialysis Wednesday, Wednesday, , and Wednesday presenting to the emergency department via EMS with multiple complaints. Patient states that she feels that she is fluid overloaded and feeling short of breath, fluctuating blood sugars and overall weakness. She denies current abdominal pain, chest pain. Patient's dialysis is scheduled tomorrow morning at 05 45. Denies fevers or chills. - Related Data Home Medications Medication Instructions Recorded Confirmed Docusate [Colace] 100 mg PO DAILY@0800 02/05/24 05/09/25 Lidocaine 4% Patch 1 patch TOPICAL DAILY@0800 02/05/24 05/09/25 Acetaminophen [Tylenol] 650 mg PO Q4H PRN 02/18/24 05/09/25 Biotene Dry Mouth/Throat 10 ml PO BID PRN 02/18/24 05/09/25 Levothyroxine Sodium [Synthroid] 175 mcg PO DAILY@0600 08/14/24 05/09/25 Sertraline [Zoloft] 200 mg PO DAILY@0800 08/14/24 05/09/25 Folic Acid/Vit B Complex and C 0.8 mg PO DAILY 12/20/24 05/09/25 [Davina-Mayte Tablet] Insulin Lispro [humaLOG Kwikpen] See Protocol SQ AC-TID 01/22/25 05/09/25 cloNIDine HCL [Catapres] 0.3 mg PO TID 01/22/25 05/09/25 ALPRAZolam [Xanax] 0.25 mg PO BID PRN 02/26/25 05/09/25 Divalproex Sodium [Depakote] 500 mg PO BID@0800,1700 02/26/25 05/09/25 Lidocaine 5% Cream 1 applic TOPICAL MOTUWETHSA 02/26/25 05/09/25 Methoxy Peg-Epoetin Beta [Mircera] 100 mcg SQ Q14D 02/26/25 05/09/25 oxyCODONE HCL/ACETAMINOPHEN 1 tab PO DAILY PRN 04/16/25 05/09/25 [Percocet 10-325 mg] Previous Rx's Medication Instructions Recorded Ipratropium-Albuterol Nebulize 3 ml INHALATION RT-TID PRN each 02/14/24 [Duoneb 0.5 mg-3 mg/3 ml Soln] polyethylene glycoL 3350 [Miralax] 17 gm PO AC-LUNCH #527 gm 02/14/24 Melatonin 1 mg PO HS tab 02/25/24 Loratadine [Claritin] 5 mg PO DAILY tab 03/30/24 Aspirin 81 mg PO DAILY@0800 #30 tab 05/18/24 Famotidine [Pepcid] 20 mg PO BID #60 tab 07/11/24 traZODone HCL [Desyrel] 50 mg PO HS #20 tab 01/01/25 Isosorbide Mononitrate ER [Imdur] 120 mg PO DAILY #60 tab 01/02/25 Gabapentin [Neurontin] 100 mg PO BID 30 Days #60 cap 01/03/25 Linagliptin [Tradjenta] 5 mg PO DAILY #30 tab 01/03/25 carvediloL [Coreg] 50 mg PO BID #120 tablet 02/15/25 Calcium Acetate [PhosLo] 1,334 mg PO TID-W/MEALS 30 Days 02/19/25 #360 tab Ipratropium-Albuterol Nebulize 3 ml INHALATION RT-TID #100 each 02/19/25 [Duoneb 0.5 mg-3 mg/3 ml Soln] Insulin Glargine (Lantus) [Lantus 11 unit SQ BID #0 03/18/25 Vial] hydrOXYzine HCL [Atarax] 25 mg PO TID PRN #10 tab 04/24/25 INSULIN LISPRO (HumaLOG) [HumaLOG] 5 unit SQ AC-TID each 04/27/25 Sodium Zirconium Cyclosilicate 10 gm PO DAILY #30 04/27/25 [Lokelma] Bacitracin Zinc Oint 1 applic TOPICAL TID each 05/07/25 NIFEdipine XL [Procardia XL] 90 mg PO Q12HR #60 tab 05/07/25 Ondansetron Odt [Zofran Odt] 4 mg PO Q8HR PRN #10 tab 05/07/25 Pantoprazole [Protonix] 40 mg PO AC-BRKFST #30 tab 05/07/25 Allergies Allergy/AdvReac Type Severity Reaction Status Date / Time propoxyphene Allergy Rash/Hives Verified 05/09/25 20:46 [From Darvocet-N] tramadol Allergy Anaphylaxis Verified 05/09/25 20:46 ampicillin [From Unasyn] AdvReac Itching Verified 05/09/25 20:46 ibuprofen [From Motrin] AdvReac unable to Verified 05/09/25 20:46 take due to kidney disease sulbactam [From Unasyn] AdvReac Itching Verified 05/09/25 20:46 venom-honey bee AdvReac passes out Verified 05/09/25 20:46 [bee venom (honey bee)] Review of Systems ROS Statement: Those systems with pertinent positive or pertinent negative responses have been documented in the HPI. ROS Other: All systems not noted in ROS Statement are negative. 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 Past Anesthesia/Blood Transfusion Reactions: Previous Problems w/ Anesthesia Additional Past Anesthesia/Blood Transfusion Reaction / Comment(s): confusion Past Psychological History: Anxiety, Depression Smoking Status: Former smoker Past Alcohol Use History: None Reported Past Drug Use History: Marijuana - Past Family History Father History Unknown: Yes Family Medical History: Unable to Obtain Mother History Unknown: Yes Family Medical History: No Reported History Grandfather History Unknown: Yes Family Medical History: Coronary Artery Disease (CAD) Additional Family Medical History / Comment(s): Diabetes mellitus type 2 General Exam - General Exam Comments Initial Comments: Visual Physical Exam Vital signs reviewed General: Well-appearing, nontoxic, no acute distress. Head: Normocephalic, atraumatic Eyes: PERRLA, EOMI ENT: Airway patent Chest: Nonlabored breathing Skin: No visual rash, normal skin tone Neuro: Alert and oriented 3 Musculoskeletal: No gross abnormalities Limitations: no limitations Neck exam: Present: normal inspection. Absent: tenderness, meningismus, lymphadenopathy Respiratory exam: Present: normal lung sounds bilaterally. Absent: respiratory distress, wheezes, rales, rhonchi, stridor Cardiovascular Exam: Present: regular rate, normal rhythm, normal heart sounds. Absent: systolic murmur, diastolic murmur, rubs, gallop, clicks GI/Abdominal exam: Present: soft, normal bowel sounds. Absent: distended, tenderness, guarding, rebound, rigid Extremities exam: Present: normal inspection, full ROM, normal capillary refill. Absent: tenderness, pedal edema, joint swelling, calf tenderness Skin exam: Present: warm, dry, intact, normal color. Absent: rash Course Vital Signs 05/09/25 05/09/25 05/09/25 15:47 19:48 20:44 Temperature 97.9 F Pulse Rate 78 72 73 Respiratory 18 18 Rate Blood Pressure 177/85 183/100 O2 Sat by Pulse 97 98 Oximetry 05/09/25 05/09/25 20:51 22:13 Temperature Pulse Rate 71 69 Respiratory 18 Rate Blood Pressure 168/91 O2 Sat by Pulse 95 Oximetry Medical Decision Making - Medical Decision Making Was pt. sent in by a medical professional or institution (, PA, METALLOGRAPHY TEACHER, urgent care, hospital, or senior living...) When possible be specific @ -No Did you speak to anyone other than the patient for history (EMS, parent, family, police, friend...)? What history was obtained from this source @ -No Did you review nursing and triage notes (agree or disagree)? Why? @ -I reviewed and agree with nursing and triage notes Were old charts reviewed (outside hosp., previous admission, EMS record, old EKG, old radiological studies, urgent care reports/EKG's, senior living records)? Report findings @ -No old charts were reviewed Differential Diagnosis (chest pain, altered mental status, abdominal pain women, abdominal pain men, vaginal bleeding, weakness, fever, dyspnea, syncope, headache, dizziness, GI bleed, back pain, seizure, CVA, palpatations, mental health, musculoskeletal)? @ -Differential Dyspnea: Coronary syndrome, arrhythmia, tamponade, asthma, COPD, pulmonary embolism, pneumonia, pneumothorax, pulmonary effusion, anaphylaxis, diabetic ketoacidosis, flailed chest, pulmonary contusion, diaphragmatic rupture, anemia, neuromuscular, this is not meant to be an all-inclusive list. EKG interpreted by me (3pts min.). @ -Completed at 1646 sinus rhythm with ventricular rate of 73, TX interval 135, QRS 91, QT 435, QTc 461. X-rays interpreted by me (1pt min.). @ -Chest x-ray reveals mild cardiomegaly CT interpreted by me (1pt min.). @ -None done U/S interpreted by me (1pt. min.). @ -None done What testing was considered but not performed or refused? (CT, X-rays, U/S, labs)? Why? @ -None What meds were considered but not given or refused? Why? @ -None Did you discuss the management of the patient with other professionals (professionals i.e. , PA, METALLOGRAPHY TEACHER, lab, RT, psych nurse, social work nurse, electrical instrument maker, teacher, operational intelligence officer, major case detective)? Give summary @ -I spoke with on-call show card writer, Dr. Lim, was recommend the patient receive oral Lokelma and IV insulin and follow-up as scheduled tomorrow morning with dialysis. Was smoking cessation discussed for >3mins.? @ -No Was critical care preformed (if so, how long)? @ -No Were there social determinants of health that impacted care today? How? (Homelessness, low income, unemployed, alcoholism, drug addiction, transportation, low edu. Level, literacy, decrease access to med. care, halfway, rehab)? @ -No Was there de-escalation of care discussed even if they declined (Discuss DNR or withdrawal of care, Hospice)? DNR status @ -No What co-morbidities impacted this encounter? (DM, HTN, Smoking, COPD, CAD, Cancer, CVA, ARF, Chemo, Hep., AIDS, mental health diagnosis, sleep apnea, morbid obesity)? @ -ESRD, type 1 diabetes Was patient admitted / discharged? Hospital course, mention meds given and route, prescriptions, significant lab abnormalities, going to OR and other pertinent info. @ -Discharge. 35-year-old female is in for department complaints of diffuse abdominal pain, nausea difficulty breathing. Overall patient is well-appearing no signs of acute distress. Chest x-ray reveals no signs of fluid overload or pleural effusions. Patient has chronic anemia with hemoglobin 9.2 similar as compared to previous. Patient does have elevated potassium with a level of 6.4, bicarb of 32, elevated troponin at 0.036 that is chronic. I spoke with on-call show card writer is recommend that patient receive oral hyperkalemia cocktail and follow-up in the morning with dialysis as scheduled. Patient is stable for discharge. Case discussed with my attending Dr. Durand Undiagnosed new problem with uncertain prognosis? @ -No Drug Therapy requiring intensive monitoring for toxicity (Heparin, Nitro, Insulin, Cardizem)? @ -No Were any procedures done? @ -No Diagnosis/symptom? @ -Hyperkalemia Acute, or Chronic, or Acute on Chronic? @ -Acute Uncomplicated (without systemic symptoms) or Complicated (systemic symptoms)? @ -Complicated Side effects of treatment? @ -No Exacerbation, Progression, or Severe Exacerbation? @ -No Poses a threat to life or bodily function? How? (Chest pain, [place], [place], pneumonia, PE, COPD, DKA, ARF, appy, cholecystitis, CVA, Diverticulitis, Homicidal, Suicidal, threat to staff... and all critical care pts) @ -No - Lab Data Result diagrams: 05/09/25 19:51 05/09/25 19:51 Lab Results 05/09/25 05/09/25 05/09/25 Range/Units 19:51 19:51 19:51 WBC 9.51 (4.50-10.00) 10*3/uL RBC 2.77 L (4.10-5.20) 10*6/uL Hgb 9.2 L (12.0-15.0) g/dL Hct 26.8 L (37.2-46.3) % MCV 96.8 (80.0-97.0) fL MCH 33.2 H (27.0-32.0) pg MCHC 34.3 (32.0-37.0) g/dL Plt Count 224 (140-440) 10*3/uL MPV 10.7 (9.5-12.2) fL Immature Gran % (Auto) 0.5 % Neutrophils % 79.3 % Lymphocytes % 9.9 % Monocytes % 7.5 % Eosinophils % 1.7 % Basophils % 1.1 % Immature Gran # 0.05 H (0.00-0.04) 10*3/uL Neutrophils # 7.55 (1.80-7.70) 10*3/uL Lymphocytes # 0.94 (0.90-5.00) 10*3/uL Monocytes # 0.71 (0.20-1.00) 10*3/uL Eosinophils # 0.16 (0.04-0.35) 10*3/uL Basophils # 0.10 (0.00-0.10) 10*3/uL PT 12.6 H (10.0-12.5) sec INR 1.2 H (<1.2) APTT 27.3 (22.0-30.0) sec Sodium 130 L (137-145) mmol/L Potassium 6.4 H* (3.5-5.1) mmol/L Chloride 82 L (98-107) mmol/L Carbon Dioxide 32 H (22-30) mmol/L Anion Gap 16 mmol/L BUN 53 H (7-17) mg/dL Creatinine 4.87 H (0.52-1.04) mg/dL Est GFR (CKD-EPI)AfAm 13 (>60 ml/min/1.73 sqM) Est GFR (CKD-EPI)NonAf 11 (>60 ml/min/1.73 sqM) Glucose 243 H (74-99) mg/dL Calcium 9.6 (8.4-10.2) mg/dL Phosphorus 6.7 H (2.5-4.5) mg/dL Magnesium 2.1 (1.6-2.3) mg/dL Total Bilirubin 0.9 (0.2-1.3) mg/dL AST 66 H (14-36) U/L ALT 94 H (4-34) U/L Alkaline Phosphatase 182 H (38-126) U/L Troponin I (0.000-0.034) ng/mL NT-Pro-B Natriuret Pep 14186 pg/mL Total Protein 6.6 (6.3-8.2) g/dL Albumin 4.2 (3.5-5.0) g/dL 05/09/25 Range/Units 19:51 WBC (4.50-10.00) 10*3/uL RBC (4.10-5.20) 10*6/uL Hgb (12.0-15.0) g/dL Hct (37.2-46.3) % MCV (80.0-97.0) fL MCH (27.0-32.0) pg MCHC (32.0-37.0) g/dL Plt Count (140-440) 10*3/uL MPV (9.5-12.2) fL Immature Gran % (Auto) % Neutrophils % % Lymphocytes % % Monocytes % % Eosinophils % % Basophils % % Immature Gran # (0.00-0.04) 10*3/uL Neutrophils # (1.80-7.70) 10*3/uL Lymphocytes # (0.90-5.00) 10*3/uL Monocytes # (0.20-1.00) 10*3/uL Eosinophils # (0.04-0.35) 10*3/uL Basophils # (0.00-0.10) 10*3/uL PT (10.0-12.5) sec INR (<1.2) APTT (22.0-30.0) sec Sodium (137-145) mmol/L Potassium (3.5-5.1) mmol/L Chloride (98-107) mmol/L Carbon Dioxide (22-30) mmol/L Anion Gap mmol/L BUN (7-17) mg/dL Creatinine (0.52-1.04) mg/dL Est GFR (CKD-EPI)AfAm (>60 ml/min/1.73 sqM) Est GFR (CKD-EPI)NonAf (>60 ml/min/1.73 sqM) Glucose (74-99) mg/dL Calcium (8.4-10.2) mg/dL Phosphorus (2.5-4.5) mg/dL Magnesium (1.6-2.3) mg/dL Total Bilirubin (0.2-1.3) mg/dL AST (14-36) U/L ALT (4-34) U/L Alkaline Phosphatase (38-126) U/L Troponin I 0.036 H* (0.000-0.034) ng/mL NT-Pro-B Natriuret Pep pg/mL Total Protein (6.3-8.2) g/dL Albumin (3.5-5.0) g/dL Disposition Clinical Impression: Hyperkalemia Disposition: HOME SELF-CARE Condition: Good Instructions (If sedation given, give patient instructions): Hyperkalemia (ED) Additional Instructions: Please return to the Emergency Department if symptoms worsen or any other concerns. Please follow-up with your dialysis session in the morning. Is patient prescribed a controlled substance at d/c from ED?: No Referrals: None,Stated [REFERRING] - 1-2 days Time of Disposition: 22:49
--- NOTE | 2025-05-09 16:40 | XR ---
EXAMINATION TYPE: XR chest 2V DATE OF EXAM: 05/09/2025 4:35 PM COMPARISON: None. CLINICAL INDICATION: Female, 35 years old with history of difficulty breathing, TECHNIQUE: XR chest 2V view(s) obtained. FINDINGS: The heart size is prominent. The pulmonary vasculature is somewhat prominent. The lungs are clear. IMPRESSION: 1. Mild cardiomegaly [facility] Jessica Pickard, , 05/09/2025 4:38 PM
[2025-05-09 19:58] LABS: Basophils % (A) 1.1 %; Eosinophils # (A) 0.16 10*3/uL (0.04-0.35); Eosinophils % (A) 1.7 %; HCT 26.8 % (37.2-46.3); HGB 9.2 g/dL (12.0-15.0); Lymphocytes # (A) 0.94 10*3/uL (0.90-5.00); Lymphocytes % (A) 9.9 %; MCH 33.2 pg (27.0-32.0); MCHC 34.3 g/dL (32.0-37.0); MCV 96.8 fL (80.0-97.0); Mean Platelet Volume 10.7 fL (9.5-12.2); Monocytes # (A) 0.71 10*3/uL (0.20-1.00); Monocytes % (A) 7.5 %; Neutrophils # (A) 7.55 10*3/uL (1.80-7.70); Neutrophils % (A) 79.3 %; Platelet Count 224 10*3/uL (140-440); RBC 2.77 10*6/uL (4.10-5.20); RDW 15.9 % (11.5-14.5); WBC 9.51 10*3/uL (4.50-10.00)
[2025-05-09] MEDS: ONDANSETRON 4 MG/2 ML VIAL IVP STA (20:18)
[2025-05-09 20:19] LABS: ALT 94 U/L (4-34); AST 66 U/L (14-36); African American GFR (CKD) 13 (>60 ml/min/1.73 sqM); Albumin 4.2 g/dL (3.5-5.0); Alkaline Phosphatase 182 U/L (38-126); Anion Gap 16 mmol/L; Blood Urea Nitrogen 53 mg/dL (7-17); Calcium 9.6 mg/dL (8.4-10.2); Carbon Dioxide 32 mmol/L (22-30); Chloride 82 mmol/L (98-107); Glucose 243 mg/dL (74-99); Magnesium 2.1 mg/dL (1.6-2.3); Non-African American GFR(CKD) 11 (>60 ml/min/1.73 sqM); Phosphorus 6.7 mg/dL (2.5-4.5); Sodium 130 mmol/L (137-145); Total Bilirubin 0.9 mg/dL (0.2-1.3); Total Protein 6.6 g/dL (6.3-8.2)
[2025-05-09] MEDS: HYDROmorphone 0.5 MG/0.5 ML SYRINGE IVP STA (20:19)
[2025-05-09 20:21] LABS: Potassium 6.4 mmol/L (3.5-5.1)
[2025-05-09] MEDS: IPRATROPIUM-ALBUTEROL 3 ML NEB INHALATION STA (20:43)
[2025-05-09 20:48] LABS: NT-Pro-B-Type Natriuretic Pept 60700 pg/mL
[2025-05-09 21:02] LABS: INR 1.2 (<1.2); Partial Thromboplastin Time 27.3 sec (22.0-30.0); Prothrombin Time 12.6 sec (10.0-12.5)
[2025-05-09 23:45] VITALS: BP 149/77; PULSE 75; RESP 16
[2025-05-09] MEDS: SODIUM ZIRCONIUM CYCLOSILICATE 10 GM PACKET PO ONE (23:46)
[2025-05-09 23:49] LABS: Glucose,Whole Blood 355 mg/dL (70-110)
[2025-05-09] MEDS: INSULIN REGULAR 100 UNIT/ML VIAL (IV) IV ONE (23:49)
[2025-05-10] VITALS: TEMP 98.1
== END 2025-05-10 00:03 | disposition home or self-care (01) ==
LOC: EC 15:31
DX: E87.5 Hyperkalemia (principal); E10.22 Type 1 diabetes mellitus with diabetic chronic kidney disease; N18.6 End stage renal disease; Z87.891 Personal history of nicotine dependence; Z88.0 Allergy status to penicillin; Z88.5 Allergy status to narcotic agent; Z88.6 Allergy status to analgesic agent; Z91.030 Bee allergy status; Z88.8 Allergy status to other drugs, medicaments and biological substances
CPT/HCPCS: 94640; 93005; 83880; 80053; 83735; 84100; 84484; 85025; 85610; 85730; 71046; 99285; 96374; 96375; J2405; J1171; 36415

== ENCOUNTER 2025-05-13 21:13 | Inpatient (IN) | payer MEDICARE ==
[2025-05-13 21:25] LABS: Glucose,Whole Blood >600 mg/dL (70-110)
--- NOTE | 2025-05-13 21:38 | ED ---
Recheck HPI - General Chief Complaint: Recheck/Abnormal Lab/Rx Stated Complaint: Fluid retention Time Seen by Provider: 05/13/25 21:20 Source: EMS, RN notes reviewed, old records reviewed Mode of arrival: EMS Limitations: no limitations - History of Present Illness Initial Comments: This is a 35-year-old female who presents today for evaluation of volume overload swelling of the extremities swelling of the abdomen swelling of the chest shortness of breath uncontrolled blood sugars, patient's blood sugars been running significantly high at home. Positive nausea without vomiting decreased appetite no fevers MD Complaint: abnormal lab (Severely elevated blood sugar) -: days(s) Returns Today for: Called Because of Abnormal Lab/Test, persistent/worsening pain related to initial visit, other (Weakness shortness of breath and swelling) Symptoms Since Prior Visit: worsening pain, worsening swelling Context: planned re-check Associated Symptoms: shortness of breath, nausea, abdominal pain Treatments Prior to Arrival: Given Pain Meds on - Related Data Home Medications Medication Instructions Recorded Confirmed Docusate [Colace] 100 mg PO DAILY@0800 02/05/24 05/19/25 Lidocaine 4% Patch 1 patch TOPICAL DAILY@0802/05/24 05/19/25 Acetaminophen [Tylenol] 650 mg PO Q4H PRN 02/18/24 05/19/25 Biotene Dry Mouth/Throat 10 ml PO BID PRN 02/18/24 05/19/25 Levothyroxine Sodium [Synthroid] 175 mcg PO DAILY@0600 08/14/24 05/19/25 Sertraline [Zoloft] 200 mg PO DAILY@0800 08/14/24 05/19/25 Folic Acid/Vit B Complex and C 0.8 mg PO DAILY 12/20/24 05/19/25 [Davina-Mayte Tablet] Insulin Lispro [humaLOG Kwikpen] See Protocol SQ AC-TID 01/22/25 05/19/25 cloNIDine HCL [Catapres] 0.3 mg PO TID 01/22/25 05/19/25 ALPRAZolam [Xanax] 0.25 mg PO BID PRN 02/26/25 05/19/25 Divalproex Sodium [Depakote] 500 mg PO BID@0800,1700 02/26/25 05/19/25 Lidocaine 5% Cream 1 applic TOPICAL MOTUWETHSA 02/26/25 05/19/25 Methoxy Peg-Epoetin Beta [Mircera] 100 mcg SQ Q14D 02/26/25 05/19/25 oxyCODONE HCL/ACETAMINOPHEN 1 tab PO DAILY PRN 04/16/25 05/19/25 [Percocet 10-325 mg] Mirtazapine 30 mg PO HS 05/19/25 05/19/25 Previous Rx's Medication Instructions Recorded Ipratropium-Albuterol Nebulize 3 ml INHALATION RT-TID PRN each 02/14/24 [Duoneb 0.5 mg-3 mg/3 ml Soln] polyethylene glycoL 3350 [Miralax] 17 gm PO AC-LUNCH #527 gm 02/14/24 Melatonin 1 mg PO HS tab 02/25/24 Loratadine [Claritin] 5 mg PO DAILY tab 03/30/24 Aspirin 81 mg PO DAILY@0800 #30 tab 05/18/24 Famotidine [Pepcid] 20 mg PO BID #60 tab 07/11/24 traZODone HCL [Desyrel] 50 mg PO HS #20 tab 01/01/25 Isosorbide Mononitrate ER [Imdur] 120 mg PO DAILY #60 tab 01/02/25 Gabapentin [Neurontin] 100 mg PO BID 30 Days #60 cap 01/03/25 Linagliptin [Tradjenta] 5 mg PO DAILY #30 tab 01/03/25 carvediloL [Coreg] 50 mg PO BID #120 tablet 02/15/25 Calcium Acetate [PhosLo] 1,334 mg PO TID-W/MEALS 30 Days 02/19/25 #360 tab Ipratropium-Albuterol Nebulize 3 ml INHALATION RT-TID #100 each 02/19/25 [Duoneb 0.5 mg-3 mg/3 ml Soln] Insulin Glargine (Lantus) [Lantus 11 unit SQ BID #0 03/18/25 Vial] hydrOXYzine HCL [Atarax] 25 mg PO TID PRN #10 tab 04/24/25 Sodium Zirconium Cyclosilicate 10 gm PO DAILY #30 04/27/25 [Lokelma] Bacitracin Zinc Oint 1 applic TOPICAL TID each 05/07/25 NIFEdipine XL [Procardia XL] 90 mg PO Q12HR #60 tab 05/07/25 Ondansetron Odt [Zofran ODT] 4 mg PO Q8HR PRN #10 tab 05/07/25 Pantoprazole [Protonix] 40 mg PO AC-BRKFST #30 tab 05/07/25 INSULIN LISPRO (HumaLOG) [HumaLOG] 8 unit SQ AC-TID #0 each 05/17/25 Mirtazapine 30 mg PO DAILY 30 Days #30 tablet 05/17/25 Allergies Allergy/AdvReac Type Severity Reaction Status Date / Time propoxyphene Allergy Rash/Hives Verified 05/19/25 10:58 [From Darvocet-N] tramadol Allergy Anaphylaxis Verified 05/19/25 10:58 ampicillin [From Unasyn] AdvReac Itching Verified 05/19/25 10:58 ibuprofen [From Motrin] AdvReac unable to Verified 05/19/25 10:58 take due to kidney disease sulbactam [From Unasyn] AdvReac Itching Verified 05/19/25 10:58 venom-honey bee AdvReac passes out Verified 05/19/25 10:58 [bee venom (honey bee)] Review of Systems ROS Statement: Those systems with pertinent positive or pertinent negative responses have been documented in the HPI. ROS Other: All systems not noted in ROS Statement are negative. 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 Past Anesthesia/Blood Transfusion Reactions: Previous Problems w/ Anesthesia Additional Past Anesthesia/Blood Transfusion Reaction / Comment(s): confusion Past Psychological History: Anxiety, Depression Smoking Status: Former smoker Past Alcohol Use History: None Reported Past Drug Use History: Marijuana - Past Family History Father History Unknown: Yes Family Medical History: Unable to Obtain Mother History Unknown: Yes Family Medical History: No Reported History Grandfather History Unknown: Yes Family Medical History: Coronary Artery Disease (CAD) Additional Family Medical History / Comment(s): Diabetes mellitus type 2 General Exam Limitations: no limitations General appearance: alert, in no apparent distress Head exam: Present: atraumatic, normocephalic, normal inspection Eye exam: Present: normal appearance, PERRL, EOMI. Absent: scleral icterus, conjunctival injection, periorbital swelling ENT exam: Present: normal exam, mucous membranes moist Neck exam: Present: normal inspection. Absent: tenderness, meningismus, lymphadenopathy Respiratory exam: Present: normal lung sounds bilaterally. Absent: respiratory distress, wheezes, rales, rhonchi, stridor Cardiovascular Exam: Present: regular rate, normal rhythm, normal heart sounds. Absent: systolic murmur, diastolic murmur, rubs, gallop, clicks GI/Abdominal exam: Present: soft, normal bowel sounds. Absent: distended, tenderness, guarding, rebound, rigid Extremities exam: Present: normal inspection, full ROM, normal capillary refill. Absent: tenderness, pedal edema, joint swelling, calf tenderness Back exam: Present: normal inspection Neurological exam: Present: alert, oriented X3, CN II-XII intact Psychiatric exam: Present: normal affect, normal mood Skin exam: Present: warm, dry, intact, normal color. Absent: rash Course Vital Signs 05/13/25 05/14/25 05/14/25 21:20 00:10 03:30 Temperature 98.1 F Pulse Rate 59 L 58 L 64 Pulse Rate [ Supine] Respiratory 19 18 16 Rate Blood Pressure 169/84 185/87 169/88 Blood Pressure [Right Arm] O2 Sat by Pulse 100 97 97 Oximetry 05/14/25 05/14/25 05/14/25 06:17 08:12 09:00 Temperature 98.2 F 97.9 F Pulse Rate 64 64 75 Pulse Rate [ Supine] Respiratory 18 20 18 Rate Blood Pressure 166/89 161/92 173/98 Blood Pressure [Right Arm] O2 Sat by Pulse 95 96 96 Oximetry 05/14/25 05/14/25 05/14/25 10:44 15:19 18:10 Temperature Pulse Rate 71 64 75 Pulse Rate [ Supine] Respiratory 18 18 18 Rate Blood Pressure 158/102 118/69 148/74 Blood Pressure [Right Arm] O2 Sat by Pulse 99 93 L 93 L Oximetry 05/14/25 05/14/25 05/14/25 19:06 20:08 20:11 Temperature 97.9 F 98.6 F Pulse Rate 75 Pulse Rate [ 70 83 Supine] Respiratory 18 18 18 Rate Blood Pressure 134/78 Blood Pressure 127/69 157/77 [Right Arm] O2 Sat by Pulse 99 97 Oximetry - Reevaluation(s) Reevaluation #1: 05/13/25 22:36 Medical records reviewed Reevaluation #2: 05/14/25 00:30 Patient has minimal improvement in symptoms here in the ER Reevaluation #3: 05/14/25 00:30 Patient informed of results and questions answered Reevaluation #4: Was pt. sent in by a medical professional or institution (, PA, ORTHOTIC PRACTITIONER, urgent care, hospital, or half-way...) When possible be specific @ -no Did you speak to anyone other than the patient for history (EMS, parent, family, police, friend...)? What history was obtained from this source @ -no Did you review nursing and triage notes (agree or disagree)? Why? @ -agree Are old charts reviewed (outside hosp., previous admission, EMS record, old EKG, old radiological studies, urgent care reports/EKG's, half-way records)? Report findings @ -yes Differential Diagnosis (chest pain, altered mental status, abdominal pain women, abdominal pain men, vaginal bleeding, weakness, fever, dyspnea, syncope, headache, dizziness, GI bleed, back pain, seizure, CVA, palpatations, mental health, musculoskeletal)? @ -prior EKG interpreted by me (3pts min.). @ -yes X-rays interpreted by me (1pt min.). @ -yes positive for CHF CT interpreted by me (1pt min.). @ -no U/S interpreted by me (1pt. min.). @ -no What testing was considered but not performed or refused? (CT, X-rays, U/S, labs)? Why? @ -none What meds were considered but not given or refused? Why? @ -none Did you discuss the management of the patient with other professionals (professionals i.e. , PA, ORTHOTIC PRACTITIONER, lab, RT, psych nurse, social worker assistant, evaporator, teacher, civil preparedness officer, case fitter)? Give summary @ -no Was smoking cessation discussed for >3mins.? @ -no Was critical care preformed (if so, how long)? @ -[id number] Were there social determinants of health that impacted care today? How? (Homelessness, low income, unemployed, alcoholism, drug addiction, transportation, low edu. Level, literacy, decrease access to med. care, residential, rehab)? @ -none Was there de-escalation of care discussed even if they declined (Discuss DNR or withdrawal of care, Hospice)? DNR status @ -no What co-morbidities impacted this encounter? (DM, HTN, Smoking, COPD, CAD, Cancer, CVA, ARF, Chemo, Hep., AIDS, mental health diagnosis, sleep apnea, morbid obesity)? @ -none Was patient admitted / discharged? Hospital course, mention meds given and route, prescriptions, significant lab abnormalities, going to OR and other pertinent info. @ - 35 female will be admitted for diabetes, DKA complicated by chronic kidney disease on dialysis. Patient feels very short of breath with fluid overload Admitted Undiagnosed new problem with uncertain prognosis? @ -no Drug Therapy requiring intensive monitoring for toxicity (Heparin, Nitro, Insulin, Cardizem)? @ -no Were any procedures done? @ -no Diagnosis/symptom? @ -DKA Acute, or Chronic, or Acute on Chronic? @ -Acute Uncomplicated (without systemic symptoms) or Complicated (systemic symptoms)? @ -Complicated Side effects of treatment? @ -no Exacerbation, Progression, or Severe Exacerbation? @ -exacerbation Poses a threat to life or bodily function? How? (Chest pain, [place], [place], pneumonia, PE, COPD, DKA, ARF, appy, cholecystitis, CVA, Diverticulitis, Homicidal, Suicidal, threat to staff... and all critical care pts) @ -yes DKA Reevaluation #5: Differential Dyspnea: Coronary syndrome, arrhythmia, tamponade, asthma, COPD, pulmonary embolism, pneumonia, pneumothorax, pulmonary effusion, anaphylaxis, diabetic ketoacidosis, flailed chest, pulmonary contusion, diaphragmatic rupture, anemia, neuromuscular, this is not meant to be an all-inclusive list. - Consultations Consultation #1: Spoke with [facility] who agrees to admit this patient Medical Decision Making - Medical Decision Making 35 female will be admitted for diabetes, DKA complicated by chronic kidney disease on dialysis. Patient feels very short of breath with fluid overload - Lab Data Result diagrams: 05/17/25 07:53 05/17/25 14:46 Lab Results 05/13/25 05/13/25 05/13/25 Range/Units 21:20 21:31 21:31 WBC 6.65 (4.50-10.00) 10*3/uL RBC 2.71 L (4.10-5.20) 10*6/uL Hgb 8.9 L (12.0-15.0) g/dL Hct 25.8 L (37.2-46.3) % MCV 95.2 (80.0-97.0) fL MCH 32.8 H (27.0-32.0) pg MCHC 34.5 (32.0-37.0) g/dL Plt Count 288 (140-440) 10*3/uL MPV 11.6 (9.5-12.2) fL Immature Gran % (Auto) 0.6 % Neutrophils % 79.4 % Lymphocytes % 7.1 % Monocytes % 10.8 % Eosinophils % 0.6 % Basophils % 1.5 % Immature Gran # 0.04 (0.00-0.04) 10*3/uL Neutrophils # 5.28 (1.80-7.70) 10*3/uL Lymphocytes # 0.47 L (0.90-5.00) 10*3/uL Monocytes # 0.72 (0.20-1.00) 10*3/uL Eosinophils # 0.04 (0.04-0.35) 10*3/uL Basophils # 0.10 (0.00-0.10) 10*3/uL PT 13.3 H (10.0-12.5) sec INR 1.2 H (<1.2) APTT 23.1 (22.0-30.0) sec Sodium (137-145) mmol/L Potassium (3.5-5.1) mmol/L Chloride (98-107) mmol/L Carbon Dioxide (22-30) mmol/L Anion Gap mmol/L BUN (7-17) mg/dL Creatinine (0.52-1.04) mg/dL Est GFR (CKD-EPI)AfAm (>60 ml/min/1.73 sqM) Est GFR (CKD-EPI)NonAf (>60 ml/min/1.73 sqM) Glucose (74-99) mg/dL POC Glucose (mg/dL) >600 H* (70-110) mg/dL POC Glu Loading Machine Operator Helper ID Travis Rosales Plasma Lactic Acid Christopher (0.7-2.0) mmol/L Calcium (8.4-10.2) mg/dL Phosphorus (2.5-4.5) mg/dL Magnesium (1.6-2.3) mg/dL Total Bilirubin (0.2-1.3) mg/dL AST (14-36) U/L ALT (4-34) U/L Alkaline Phosphatase (38-126) U/L Troponin I (0.000-0.034) ng/mL NT-Pro-B Natriuret Pep pg/mL Total Protein (6.3-8.2) g/dL Albumin (3.5-5.0) g/dL 05/13/25 05/13/25 05/13/25 Range/Units 21:31 21:31 21:31 WBC (4.50-10.00) 10*3/uL RBC (4.10-5.20) 10*6/uL Hgb (12.0-15.0) g/dL Hct (37.2-46.3) % MCV (80.0-97.0) fL MCH (27.0-32.0) pg MCHC (32.0-37.0) g/dL Plt Count (140-440) 10*3/uL MPV (9.5-12.2) fL Immature Gran % (Auto) % Neutrophils % % Lymphocytes % % Monocytes % % Eosinophils % % Basophils % % Immature Gran # (0.00-0.04) 10*3/uL Neutrophils # (1.80-7.70) 10*3/uL Lymphocytes # (0.90-5.00) 10*3/uL Monocytes # (0.20-1.00) 10*3/uL Eosinophils # (0.04-0.35) 10*3/uL Basophils # (0.00-0.10) 10*3/uL PT (10.0-12.5) sec INR (<1.2) APTT (22.0-30.0) sec Sodium 115 L* (137-145) mmol/L Potassium 6.3 H* (3.5-5.1) mmol/L Chloride 74 L* (98-107) mmol/L Carbon Dioxide 17 L (22-30) mmol/L Anion Gap 24 mmol/L BUN 63 H (7-17) mg/dL Creatinine 4.58 H (0.52-1.04) mg/dL Est GFR (CKD-EPI)AfAm 14 (>60 ml/min/1.73 sqM) Est GFR (CKD-EPI)NonAf 12 (>60 ml/min/1.73 sqM) Glucose 1096 H* (74-99) mg/dL POC Glucose (mg/dL) (70-110) mg/dL POC Glu Loading Machine Operator Helper ID Plasma Lactic Acid Christopher 1.7 (0.7-2.0) mmol/L Calcium 8.3 L (8.4-10.2) mg/dL Phosphorus 6.8 H (2.5-4.5) mg/dL Magnesium 1.8 (1.6-2.3) mg/dL Total Bilirubin 0.7 (0.2-1.3) mg/dL AST 33 (14-36) U/L ALT 94 H (4-34) U/L Alkaline Phosphatase 265 H (38-126) U/L Troponin I <0.012 (0.000-0.034) ng/mL NT-Pro-B Natriuret Pep 12484 pg/mL Total Protein 5.8 L (6.3-8.2) g/dL Albumin 3.9 (3.5-5.0) g/dL - EKG Data -: EKG Interpreted by Me (EKG sinus bradycardia 59 NH 139 QRS 94 QTc 473) - Radiology Data Radiology results: report reviewed (Chest x-ray is positive CHF), image reviewed Critical Care Time Critical Care Time: Yes Total Critical Care Time: 31 Disposition Clinical Impression: DKA (diabetic ketoacidoses), Intractable nausea, Hyponatremia, ESRD (end stage renal disease), Pulmonary edema, Hyperglycemia, Peripheral edema Disposition: ADMITTED IP TO THIS HOSP Condition: Good Is patient prescribed a controlled substance at d/c from ED?: No Time of Disposition: 00:10
[2025-05-13] MEDS: ONDANSETRON 4 MG/2 ML VIAL IVP STA (22:15)
[2025-05-13] MEDS: diphenhydrAMINE 50 MG/ML 1 ML VIAL IVP STA (22:15)
[2025-05-13] MEDS: HYDROmorphone 1 MG/ML 1 ML SYRINGE IVP STA (22:15)
[2025-05-13 22:39] LABS: Basophils # (A) 0.10 10*3/uL (0.00-0.10); Basophils % (A) 1.5 %; Eosinophils # (A) 0.04 10*3/uL (0.04-0.35); Eosinophils % (A) 0.6 %; HCT 25.8 % (37.2-46.3); HGB 8.9 g/dL (12.0-15.0); Lymphocytes # (A) 0.47 10*3/uL (0.90-5.00); Lymphocytes % (A) 7.1 %; MCH 32.8 pg (27.0-32.0); MCHC 34.5 g/dL (32.0-37.0); MCV 95.2 fL (80.0-97.0); Monocytes # (A) 0.72 10*3/uL (0.20-1.00); Monocytes % (A) 10.8 %; Neutrophils # (A) 5.28 10*3/uL (1.80-7.70); Neutrophils % (A) 79.4 %; Platelet Count 288 10*3/uL (140-440); RBC 2.71 10*6/uL (4.10-5.20); RDW 15.8 % (11.5-14.5); WBC 6.65 10*3/uL (4.50-10.00)
[2025-05-13 22:49] LABS: INR 1.2 (<1.2); Partial Thromboplastin Time 23.1 sec (22.0-30.0); Prothrombin Time 13.3 sec (10.0-12.5)
[2025-05-13 22:54] LABS: ALT 94 U/L (4-34); AST 33 U/L (14-36); African American GFR (CKD) 14 (>60 ml/min/1.73 sqM); Albumin 3.9 g/dL (3.5-5.0); Alkaline Phosphatase 265 U/L (38-126); Anion Gap 24 mmol/L; Blood Urea Nitrogen 63 mg/dL (7-17); Calcium 8.3 mg/dL (8.4-10.2); Carbon Dioxide 17 mmol/L (22-30); Magnesium 1.8 mg/dL (1.6-2.3); Non-African American GFR(CKD) 12 (>60 ml/min/1.73 sqM); Total Protein 5.8 g/dL (6.3-8.2)
[2025-05-13 23:18] LABS: NT-Pro-B-Type Natriuretic Pept 48000 pg/mL
[2025-05-13 23:28] LABS: Chloride 74 mmol/L (98-107); Potassium 6.3 mmol/L (3.5-5.1); Sodium 115 mmol/L (137-145)
[2025-05-13 23:30] LABS: Glucose 1096 mg/dL (74-99)
--- NOTE | 2025-05-13 23:48 | XR ---
EXAMINATION TYPE: XR chest 2V DATE OF EXAM: 05/13/2025 10:11 PM COMPARISON: Multiple radiographs, with the most recent on 05/09/2025 TECHNIQUE: XR chest 2V Frontal and lateral views of the chest. CLINICAL INDICATION:Female, 35 years old with history of Weakness; FINDINGS: Lungs/Pleura: There is no evidence of pleural effusion, focal consolidation, or pneumothorax. Mild d iffuse increased lung markings again present. Heart/mediastinum: Cardiomediastinal silhouette is enla rged and stable. Musculoskeletal: No acute osseous pathology. IMPRESSION: Cardiomegaly and diffuse increased lung markings again present. Correlate with BNP for congestive hea rt failure. [facility], , 05/13/2025 11:45 PM
[2025-05-14] MEDS ORDERED: Magnesium Replacement Protocol 1 EACH MISC MISCELLANE PRN (00:08)
[2025-05-14] MEDS ORDERED: Potassium Replacement Protocol 1 EACH MISC MISCELLANE PRN (00:08)
[2025-05-14] MEDS ORDERED: DEXTROSE 50% SYRINGE 50 ML IVP PRN ×2 (00:08)
[2025-05-14] MEDS ORDERED: NALOXONE 0.4 MG/ML 1 ML VIAL IV PRN (00:10)
[2025-05-14] MEDS: INSULIN REGULAR BOLUS (FROM DRIP BAG) IV ONE (00:40)
[2025-05-14] MEDS: INSULIN REGULAR 100 UNIT in SODIUM CHLORIDE 0.9% 100 ML IV SCH (00:41)
[2025-05-14] MEDS: SODIUM CHLORIDE 0.9% 1,000 ML IV SCH (00:42)
[2025-05-14] MEDS: hydrALAZINE HCL 20 MG/ML 1 ML VIAL IVP STA (00:44)
[2025-05-14 00:55] LABS: Glucose,Whole Blood >600 mg/dL (70-110)
[2025-05-14] MEDS: ONDANSETRON 4 MG/2 ML VIAL IVP PRN (01:17)
[2025-05-14] MEDS: HYDROmorphone 1 MG/ML 1 ML SYRINGE IVP PRN (01:17)
[2025-05-14 01:40] LABS: VBG HCO3 23.0 mmol/L (24-28); VBG PCO2 37.0 mmHg (37-51); VBG PH 7.41 (7.31-7.41)
[2025-05-14 02:15] LABS: Glucose,Whole Blood >600 mg/dL (70-110)
[2025-05-14 03:06] LABS: Glucose,Whole Blood >600 mg/dL (70-110)
[2025-05-14 04:06] LABS: Glucose,Whole Blood >600 mg/dL (70-110)
[2025-05-14 05:02] LABS: African American GFR (CKD) 11 (>60 ml/min/1.73 sqM); Anion Gap 20 mmol/L; Blood Urea Nitrogen 71 mg/dL (7-17); Carbon Dioxide 19 mmol/L (22-30); Chloride 78 mmol/L (98-107); Non-African American GFR(CKD) 9 (>60 ml/min/1.73 sqM); Potassium 5.6 mmol/L (3.5-5.1)
[2025-05-14 05:04] LABS: Glucose,Whole Blood >600 mg/dL (70-110)
[2025-05-14 05:35] LABS: Glucose 879 mg/dL (74-99)
[2025-05-14 05:36] LABS: Sodium 117 mmol/L (137-145)
[2025-05-14 06:10] LABS: Glucose,Whole Blood >600 mg/dL (70-110)
[2025-05-14 07:15] LABS: Glucose,Whole Blood 581 mg/dL (70-110)
[2025-05-14 08:13] LABS: African American GFR (CKD) 11 (>60 ml/min/1.73 sqM); Anion Gap 20 mmol/L; Blood Urea Nitrogen 69 mg/dL (7-17); Carbon Dioxide 21 mmol/L (22-30); Chloride 80 mmol/L (98-107); Non-African American GFR(CKD) 9 (>60 ml/min/1.73 sqM); Potassium 4.9 mmol/L (3.5-5.1); Sodium 121 mmol/L (137-145)
[2025-05-14 08:15] LABS: Glucose,Whole Blood 508 mg/dL (70-110)
[2025-05-14 08:18] LABS: Glucose 519 mg/dL (74-99)
[2025-05-14] MEDS: diphenhydrAMINE 50 MG/ML 1 ML VIAL IVP STA (08:58)
[2025-05-14 09:03] LABS: Glucose,Whole Blood 411 mg/dL (70-110)
[2025-05-14] MEDS: GABAPENTIN 100 MG CAP PO SCH (09:09)
[2025-05-14] MEDS: NIFEdipine XL 90 MG TAB.ER.24 PO SCH (09:09)
[2025-05-14] MEDS: ISOSORBIDE MONONITRATE ER 60 MG TAB.ER.24H PO SCH (09:09)
--- NOTE | 2025-05-14 09:12 | P.NPCON ---
History of Present Illness - Reason for Consult end stage renal disease - History of Present Illness Reason for consultation: End-stage renal disease History of present illness: Patient is a 35-year-old female seen in renal consultation for end-stage renal disease. Patient was seen and examined in the emergency room. She is maintained on hemodialysis on Wednesday schedule. Last hemodialysis was on Wednesday and patient states nearly 4 L of ultrafiltration was done. Patient states she felt her legs were very swollen and heavy and came to the hospital. She is scheduled for dialysis today. Patient states last night around 5:30 PM her blood glucose was near 350. She did eat protein-based meal after that and also took her home dose insulin. When she came to the hospital she was noted to be in DKA with blood glucose of 1096. She is currently on IV fluids and also insulin drip. Blood glucose is now down to 519 as of this morning. Sodium level is trending up. She denies chest pain or shortness of breath. She did have nausea and vomiting last night. She does not make urine. Vital signs are stable. General: No acute distress. HEENT: Head exam is unremarkable. LUNGS: No audible rhonchi or wheezes. HEART: Rate and Rhythm are regular. ABDOMEN: Nontender. EXTREMITITES: 2+ edema. 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 Past Anesthesia/Blood Transfusion Reactions: Previous Problems w/ Anesthesia Additional Past Anesthesia/Blood Transfusion Reaction / Comment(s): confusion Past Psychological History: Anxiety, Depression Smoking Status: Former smoker Past Alcohol Use History: None Reported Past Drug Use History: Marijuana - Past Family History Father History Unknown: Yes Family Medical History: Unable to Obtain Mother History Unknown: Yes Family Medical History: No Reported History Grandfather History Unknown: Yes Family Medical History: Coronary Artery Disease (CAD) Additional Family Medical History / Comment(s): Diabetes mellitus type 2 Medications and Allergies Home Medications Medication Instructions Recorded Confirmed Type Docusate [Colace] 100 mg PO DAILY@0800 02/05/24 05/09/25 History Lidocaine 4% Patch 1 patch TOPICAL DAILY@79902/05/24 05/09/25 History Ipratropium-Albuterol Nebulize 3 ml INHALATION RT-TID PRN each 02/14/24 05/09/25 Rx [Duoneb 0.5 mg-3 mg/3 ml Soln] polyethylene glycoL 3350 [Miralax] 17 gm PO AC-LUNCH #527 gm 02/14/24 05/09/25 Rx Acetaminophen [Tylenol] 650 mg PO Q4H PRN 02/18/24 05/09/25 History Biotene Dry Mouth/Throat 10 ml PO BID PRN 02/18/24 05/09/25 History Melatonin 1 mg PO HS tab 02/25/24 05/09/25 Rx Loratadine [Claritin] 5 mg PO DAILY tab 03/30/24 05/09/25 Rx Aspirin 81 mg PO DAILY@0800 #30 tab 05/18/24 05/09/25 Rx Famotidine [Pepcid] 20 mg PO BID #60 tab 07/11/24 05/09/25 Rx Levothyroxine Sodium [Synthroid] 175 mcg PO DAILY@0600 08/14/24 05/09/25 History Sertraline [Zoloft] 200 mg PO DAILY@0800 08/14/24 05/09/25 History Folic Acid/Vit B Complex and C 0.8 mg PO DAILY 12/20/24 05/09/25 History [Davina-Mayte Tablet] traZODone HCL [Desyrel] 50 mg PO HS #20 tab 01/01/25 05/09/25 Rx Isosorbide Mononitrate ER [Imdur] 120 mg PO DAILY #60 tab 01/02/25 05/09/25 Rx Gabapentin [Neurontin] 100 mg PO BID 30 Days #60 cap 01/03/25 05/09/25 Rx Linagliptin [Tradjenta] 5 mg PO DAILY #30 tab 01/03/25 05/09/25 Rx Insulin Lispro [humaLOG Kwikpen] See Protocol SQ AC-TID 01/22/25 05/09/25 History cloNIDine HCL [Catapres] 0.3 mg PO TID 01/22/25 05/09/25 History carvediloL [Coreg] 50 mg PO BID #120 tablet 02/15/25 05/09/25 Rx Calcium Acetate [PhosLo] 1,334 mg PO TID-W/MEALS 30 Days 02/19/25 05/09/25 Rx #360 tab Ipratropium-Albuterol Nebulize 3 ml INHALATION RT-TID #100 each 02/19/25 05/09/25 Rx [Duoneb 0.5 mg-3 mg/3 ml Soln] ALPRAZolam [Xanax] 0.25 mg PO BID PRN 02/26/25 05/09/25 History Divalproex Sodium [Depakote] 500 mg PO BID@0800,1700 02/26/25 05/09/25 History Lidocaine 5% Cream 1 applic TOPICAL MOTUWETHSA 02/26/25 05/09/25 History Methoxy Peg-Epoetin Beta [Mircera] 100 mcg SQ Q14D 02/26/25 05/09/25 History Insulin Glargine (Lantus) [Lantus 11 unit SQ BID #0 03/18/25 05/09/25 Rx Vial] oxyCODONE HCL/ACETAMINOPHEN 1 tab PO DAILY PRN 04/16/25 05/09/25 History [Percocet 10-325 mg] hydrOXYzine HCL [Atarax] 25 mg PO TID PRN #10 tab 04/24/25 05/09/25 Rx INSULIN LISPRO (HumaLOG) [HumaLOG] 5 unit SQ AC-TID each 04/27/25 05/09/25 Rx Sodium Zirconium Cyclosilicate 10 gm PO DAILY #30 04/27/25 05/09/25 Rx [Lokelma] Bacitracin Zinc Oint 1 applic TOPICAL TID each 05/07/25 05/09/25 Rx NIFEdipine XL [Procardia XL] 90 mg PO Q12HR #60 tab 05/07/25 05/09/25 Rx Ondansetron Odt [Zofran Odt] 4 mg PO Q8HR PRN #10 tab 05/07/25 05/09/25 Rx Pantoprazole [Protonix] 40 mg PO AC-BRKFST #30 tab 05/07/25 05/09/25 Rx Allergies Allergy/AdvReac Type Severity Reaction Status Date / Time propoxyphene Allergy Rash/Hives Verified 05/09/25 20:46 [From Darvocet-N] tramadol Allergy Anaphylaxis Verified 05/09/25 20:46 ampicillin [From Unasyn] AdvReac Itching Verified 05/09/25 20:46 ibuprofen [From Motrin] AdvReac unable to Verified 05/09/25 20:46 take due to kidney disease sulbactam [From Unasyn] AdvReac Itching Verified 05/09/25 20:46 venom-honey bee AdvReac passes out Verified 05/09/25 20:46 [bee venom (honey bee)] Physical Exam Vitals: Vital Signs Temp Pulse Resp BP Pulse Ox 05/14/25 09:00 97.9 F 75 18 173/98 96 05/14/25 08:12 64 20 161/92 96 05/14/25 06:17 98.2 F 64 18 166/89 95 05/14/25 03:30 64 16 169/88 97 05/14/25 00:10 58 L 18 185/87 97 05/13/25 21:20 98.1 F 59 L 19 169/84 100 Intake and Output 05/13/25 05/14/25 05/14/25 22:59 06:59 14:59 Intake Total 17.643 43.507 Balance 17.643 43.507 Intake: Intake, IV Titration 17.643 43.507 Amount Insulin Regular 100 unit 17.643 43.507 In Sodium Chloride 0.9% 100 ml @ 0.1 UNITS/KG/HR 7.211 mls/hr IV .Q14H1M [facility] Rx#:[id number] Other: Weight 71.4 kg Results - Lab Results Most recent lab results Calcium 8.3 mg/dL (8.4-10.2) L 05/13/25 21:31 Phosphorus 6.5 mg/dL (2.5-4.5) H 05/14/25 07:34 Magnesium 1.8 mg/dL (1.6-2.3) 05/13/25 21:31 05/13/25 21:31 05/14/25 07:34 Assessment and Plan Plan: Assessment: 1. End-stage renal disease maintained on hemodialysis on Wednesday schedule. 2. DKA maintained on insulin drip and IV fluids. 3. Hypertonic hyponatremia secondary to hyperglycemia. Corrected sodium near normal. 4. Hyperkalemia secondary to hyperglycemia and chronic kidney disease. Improved. 5. Volume overload. 6. Chronic kidney disease mineral bone disease. On PhosLo. 7. Hypertension with chronic kidney disease. Plan: Decrease rate of IV fluids. Insulin drip per DKA protocol. Hemodialysis today and again tomorrow. Thank you for the consultation. I will continue to follow the patient with you during her hospital stay.
[2025-05-14 10:13] LABS: Glucose,Whole Blood 335 mg/dL (70-110)
[2025-05-14] MEDS ORDERED: ACETAMINOPHEN TAB 325 MG TAB PO PRN (10:34)
[2025-05-14] MEDS: HEPARIN SODIUM,PORCINE 5,000 UNIT/ML 1 ML VIAL SQ SCH (10:47)
[2025-05-14 11:14] LABS: Glucose,Whole Blood 266 mg/dL (70-110)
[2025-05-14] MEDS: CALCIUM ACETATE 667 MG TAB PO SCH (11:37)
[2025-05-14 11:59] LABS: African American GFR (CKD) 10 (>60 ml/min/1.73 sqM); Anion Gap 17 mmol/L; Blood Urea Nitrogen 65 mg/dL (7-17); Calcium 9.4 mg/dL (8.4-10.2); Carbon Dioxide 26 mmol/L (22-30); Chloride 82 mmol/L (98-107); Glucose 217 mg/dL (74-99); Non-African American GFR(CKD) 9 (>60 ml/min/1.73 sqM); Potassium 4.7 mmol/L (3.5-5.1); Sodium 125 mmol/L (137-145)
[2025-05-14 12:09] LABS: Glucose,Whole Blood 206 mg/dL (70-110)
[2025-05-14 13:02] LABS: Glucose,Whole Blood 131 mg/dL (70-110)
[2025-05-14] MEDS: LIDOCAINE-PRILOCAINE 2.5-2.5% CREAM 5 GM TUBE TOPICAL PRN (13:40)
--- NOTE | 2025-05-14 14:38 | P.HPIM ---
History of Present Illness H&P Date: 05/14/25 Patient is a 35-year-old female with HFpEF (60% EF) 2024), type 1 diabetes, GERD, hypertension, ESRD (hemodialysis Saturdays), seizure disorder, hypothyroidism, anxiety, depression here for evaluation of extremity swelling and elevated blood sugars. Patient reported that on admission day, she was began to have swelling of her lower extremities and abdomen with shortness of breath. She was also found to have uncontrolled blood sugars levels. She denied chest pain, palpitations, focal weakness, abdominal pain, productive cough, fever, chills. Her last hemodialysis session was on Wednesday. On admission: Vitals: Temp 98.1 F, PA 59, RR 19, BP 169/84, O2 saturation 100% on 3 L nasal cannula Labs: WBC 6.6, hemoglobin 8.9, platelet count 288, sodium 115, potassium 6.3, bicarb 17, BUN 63, creatinine 4.5, glucose 1096, calcium 8.3, Phos 6.8, magnesium 1.8, ALT 94, alk phos 265, troponin less than 0.0 12, BNP 48,000, albumin 3.9. Imaging: EKG independently interpreted showed sinus bradycardia with a rate of 59, normal axis, no ST-T changes, QTc 473 MS. Chest x-ray showed cardiomegaly with increased interstitial lung markings. ED documentation reviewed. Review of systems: Pertinent positives and negatives as discussed in HPI, a complete review of systems was performed and all other systems are negative. Physical examination: Vital signs reviewed General: non toxic, no distress, appears at stated age, room air Derm: no unusual rashes/lesions, warm Head: atraumatic, normocephalic, symmetric Eyes: EOMI, anicteric sclera, pupils equal round reactive to light ENT: Nose and ears atraumatic Neck: No cervical lymphadenopathy, trachea midline, supple Mouth: no lip lesion, mucus membranes moist Cardiovascular: S1S2 reg, no murmur Lungs: no rhonchi, bibarilar fine rales, no accessory muscle use Abdominal: distended, nontender to palpation, no guarding Ext: muscle strength 5 out of 5 in all 4 extremities grossly, no gross muscle atrophy, no contractures, positive dorsalis pedis pulse bilateral, bilateral lower extremity +2 pitting edema Neuro: CN II-XI grossly intact, no gross focal neuro deficits Psych: Alert and oriented x 3, appropriate affect and mood Assessment/Plan: 35-year-old female with HFpEF, ESRD, diabetes, hypertension, hypothyroidism, anxiety, depression here for evaluation of extremity and abdomen swelling concerning for heart failure exacerbation. She is also noted to have elevated blood sugars on admission concerning for DKA. The patient is admitted with an anticipated greater than than 2 midnight stay for evaluation of acute on chronic HFpEF and DKA. Active: # Acute on Chronic HFpEF (EF 60% based on echo April 30, 2025) #Sinus bradycardia Chest x-ray showed cardiomegaly with increased interstitial lung markings EKG independently interpreted showed sinus bradycardia Cardiac monitoring Supplemental oxygen as needed Fluid restriction Strict Is and Os. Daily weights Echocardiogram limited in April 2025 showed EF of 60% with RVSP of 44 Consult cardiology # DKA #Hyponatremia secondary to above Hemoglobin A1c 7.3 in March 2025 Hold home medications Glucose Accu-Cheks every hour Monitor electrolytes and glucose every 4 hours IV fluids 0.9 normal saline at 50 cc/h due to heart failure Currently on insulin drip. Transition to insulin SQ once she begins to eat Monitor for hypoglycemia # ESRD on hemodialysis ([facility]) Last scheduled dialysis was wednesday Consult nephrology for hemodialysis Chronic Conditions: #GERD #Hypertension #Seizure disorder #Hypothyroidism anxiety #Depression Continue Xanax, aspirin, carvedilol, PhosLo, divalproex, gabapentin, DuoNeb inhalers, Imdur, levothyroxine, nifedipine, sertraline, trazodone DVT ppx: Heparin subcu CODE STATUS: Full Discussed with: Patient Anticipated discharge place: Home Margie Davenport MD PGY-1 Internal Medicine Attestation I have seen and examined this patient with my resident , discussed the same with the resident/ANTHONY, and agree with the dictator's assessment and plan as written Dr. Getachew son Dictation was produced using [employer] dictation software. please excuse any grammatical, word or spelling errors. 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 Past Anesthesia/Blood Transfusion Reactions: Previous Problems w/ Anesthesia Additional Past Anesthesia/Blood Transfusion Reaction / Comment(s): confusion Past Psychological History: Anxiety, Depression Smoking Status: Former smoker Past Alcohol Use History: None Reported Past Drug Use History: Marijuana - Past Family History Father History Unknown: Yes Family Medical History: Unable to Obtain Mother History Unknown: Yes Family Medical History: No Reported History Grandfather History Unknown: Yes Family Medical History: Coronary Artery Disease (CAD) Additional Family Medical History / Comment(s): Diabetes mellitus type 2 Medications and Allergies Home Medications Medication Instructions Recorded Confirmed Type Docusate [Colace] 100 mg PO DAILY@0800 02/05/24 05/14/25 History Lidocaine 4% Patch 1 patch TOPICAL DAILY@0800 02/05/24 05/14/25 History Ipratropium-Albuterol Nebulize 3 ml INHALATION RT-TID PRN each 02/14/24 05/14/25 Rx [Duoneb 0.5 mg-3 mg/3 ml Soln] polyethylene glycoL 3350 [Miralax] 17 gm PO AC-LUNCH #527 gm 02/14/24 05/14/25 Rx Acetaminophen [Tylenol] 650 mg PO Q4H PRN 02/18/24 05/14/25 History Biotene Dry Mouth/Throat 10 ml PO BID PRN 02/18/24 05/14/25 History Melatonin 1 mg PO HS tab 02/25/24 05/14/25 Rx Loratadine [Claritin] 5 mg PO DAILY tab 03/30/24 05/14/25 Rx Aspirin 81 mg PO DAILY@0800 #30 tab 05/18/24 05/14/25 Rx Famotidine [Pepcid] 20 mg PO BID #60 tab 07/11/24 05/14/25 Rx Levothyroxine Sodium [Synthroid] 175 mcg PO DAILY@0608/14/24 05/14/25 History Sertraline [Zoloft] 200 mg PO DAILY@0800 08/14/24 05/14/25 History Folic Acid/Vit B Complex and C 0.8 mg PO DAILY 12/20/24 05/14/25 History [Davina-Mayte Tablet] traZODone HCL [Desyrel] 50 mg PO HS #20 tab 01/01/25 05/14/25 Rx Isosorbide Mononitrate ER [Imdur] 120 mg PO DAILY #60 tab 01/02/25 05/14/25 Rx Gabapentin [Neurontin] 100 mg PO BID 30 Days #60 cap 01/03/25 05/14/25 Rx Linagliptin [Tradjenta] 5 mg PO DAILY #30 tab 01/03/25 05/14/25 Rx Insulin Lispro [humaLOG Kwikpen] See Protocol SQ AC-TID 01/22/25 05/14/25 History cloNIDine HCL [Catapres] 0.3 mg PO TID 01/22/25 05/14/25 History carvediloL [Coreg] 50 mg PO BID #120 tablet 02/15/25 05/14/25 Rx Calcium Acetate [PhosLo] 1,334 mg PO TID-W/MEALS 30 Days 02/19/25 05/14/25 Rx #360 tab Ipratropium-Albuterol Nebulize 3 ml INHALATION RT-TID #100 each 02/19/25 05/14/25 Rx [Duoneb 0.5 mg-3 mg/3 ml Soln] ALPRAZolam [Xanax] 0.25 mg PO BID PRN 02/26/25 05/14/25 History Divalproex Sodium [Depakote] 500 mg PO BID@0800,1700 02/26/25 05/14/25 History Lidocaine 5% Cream 1 applic TOPICAL MOTUWETHSA 02/26/25 05/14/25 History Methoxy Peg-Epoetin Beta [Mircera] 100 mcg SQ Q14D 02/26/25 05/14/25 History Insulin Glargine (Lantus) [Lantus 11 unit SQ BID #0 03/18/25 05/14/25 Rx Vial] oxyCODONE HCL/ACETAMINOPHEN 1 tab PO DAILY PRN 04/16/25 05/14/25 History [Percocet 10-325 mg] hydrOXYzine HCL [Atarax] 25 mg PO TID PRN #10 tab 04/24/25 05/14/25 Rx INSULIN LISPRO (HumaLOG) [HumaLOG] 5 unit SQ AC-TID each 04/27/25 05/14/25 Rx Sodium Zirconium Cyclosilicate 10 gm PO DAILY #30 04/27/25 05/14/25 Rx [Lokelma] Bacitracin Zinc Oint 1 applic TOPICAL TID each 05/07/25 05/14/25 Rx NIFEdipine XL [Procardia XL] 90 mg PO Q12HR #60 tab 05/07/25 05/14/25 Rx Ondansetron Odt [Zofran Odt] 4 mg PO Q8HR PRN #10 tab 05/07/25 05/14/25 Rx Pantoprazole [Protonix] 40 mg PO AC-BRKFST #30 tab 05/07/25 05/14/25 Rx Allergies Allergy/AdvReac Type Severity Reaction Status Date / Time propoxyphene Allergy Rash/Hives Verified 05/14/25 09:13 [From Darvocet-N] tramadol Allergy Anaphylaxis Verified 05/14/25 09:13 ampicillin [From Unasyn] AdvReac Itching Verified 05/14/25 09:13 ibuprofen [From Motrin] AdvReac unable to Verified 05/14/25 09:13 take due to kidney disease sulbactam [From Unasyn] AdvReac Itching Verified 05/14/25 09:13 venom-honey bee AdvReac passes out Verified 05/14/25 09:13 [bee venom (honey bee)] Physical Exam Vitals: Vital Signs Temp Pulse Resp BP Pulse Ox 05/14/25 06:17 98.2 F 64 18 166/89 95 05/14/25 03:30 64 16 169/88 97 05/14/25 00:10 58 L 18 185/87 97 05/13/25 21:20 98.1 F 59 L 19 169/84 100 Intake and Output 05/13/25 05/14/25 05/14/25 22:59 06:59 14:59 Intake Total 17.643 30.767 Balance 17.643 30.767 Intake: Intake, IV Titration 17.643 30.767 Amount Insulin Regular 100 unit 17.643 30.767 In Sodium Chloride 0.9% 100 ml @ 0.1 UNITS/KG/HR 7.211 mls/hr IV .Q14H1M [facility] Rx#:[id number] Other: Weight 71.4 kg Results CBC & Chem 7: 05/15/25 07:11 05/15/25 07:11 Labs: Abnormal Lab Results - Last 24 Hours (Table) 05/13/25 05/13/25 05/13/25 Range/Units 21:20 21:31 21:31 RBC 2.71 L (4.10-5.20) 10*6/uL Hgb 8.9 L (12.0-15.0) g/dL Hct 25.8 L (37.2-46.3) % MCH 32.8 H (27.0-32.0) pg Lymphocytes # 0.47 L (0.90-5.00) 10*3/uL PT 13.3 H (10.0-12.5) sec INR 1.2 H (<1.2) VBG HCO3 (24-28) mmol/L Sodium (137-145) mmol/L Potassium (3.5-5.1) mmol/L Chloride (98-107) mmol/L Carbon Dioxide (22-30) mmol/L BUN (7-17) mg/dL Creatinine (0.52-1.04) mg/dL Glucose (74-99) mg/dL POC Glucose (mg/dL) >600 H* (70-110) mg/dL Calcium (8.4-10.2) mg/dL Phosphorus (2.5-4.5) mg/dL ALT (4-34) U/L Alkaline Phosphatase (38-126) U/L Total Protein (6.3-8.2) g/dL 05/13/25 05/14/25 05/14/25 Range/Units 21:31 00:53 01:20 RBC (4.10-5.20) 10*6/uL Hgb (12.0-15.0) g/dL Hct (37.2-46.3) % MCH (27.0-32.0) pg Lymphocytes # (0.90-5.00) 10*3/uL PT (10.0-12.5) sec INR (<1.2) VBG HCO3 23 L (24-28) mmol/L Sodium 115 L* (137-145) mmol/L Potassium 6.3 H* (3.5-5.1) mmol/L Chloride 74 L* (98-107) mmol/L Carbon Dioxide 17 L (22-30) mmol/L BUN 63 H (7-17) mg/dL Creatinine 4.58 H (0.52-1.04) mg/dL Glucose 1096 H* (74-99) mg/dL POC Glucose (mg/dL) >600 H* (70-110) mg/dL Calcium 8.3 L (8.4-10.2) mg/dL Phosphorus 6.8 H (2.5-4.5) mg/dL ALT 94 H (4-34) U/L Alkaline Phosphatase 265 H (38-126) U/L Total Protein 5.8 L (6.3-8.2) g/dL 05/14/25 05/14/25 05/14/25 Range/Units 02:09 03:00 03:55 RBC (4.10-5.20) 10*6/uL Hgb (12.0-15.0) g/dL Hct (37.2-46.3) % MCH (27.0-32.0) pg Lymphocytes # (0.90-5.00) 10*3/uL PT (10.0-12.5) sec INR (<1.2) VBG HCO3 (24-28) mmol/L Sodium (137-145) mmol/L Potassium (3.5-5.1) mmol/L Chloride (98-107) mmol/L Carbon Dioxide (22-30) mmol/L BUN (7-17) mg/dL Creatinine (0.52-1.04) mg/dL Glucose (74-99) mg/dL POC Glucose (mg/dL) >600 H* >600 H* (70-110) mg/dL Calcium (8.4-10.2) mg/dL Phosphorus 7.0 H (2.5-4.5) mg/dL ALT (4-34) U/L Alkaline Phosphatase (38-126) U/L Total Protein (6.3-8.2) g/dL 05/14/25 05/14/25 05/14/25 Range/Units 03:55 04:04 05:01 RBC (4.10-5.20) 10*6/uL Hgb (12.0-15.0) g/dL Hct (37.2-46.3) % MCH (27.0-32.0) pg Lymphocytes # (0.90-5.00) 10*3/uL PT (10.0-12.5) sec INR (<1.2) VBG HCO3 (24-28) mmol/L Sodium 117 L* (137-145) mmol/L Potassium 5.6 H (3.5-5.1) mmol/L Chloride 78 L (98-107) mmol/L Carbon Dioxide 19 L (22-30) mmol/L BUN 71 H (7-17) mg/dL Creatinine 5.60 H (0.52-1.04) mg/dL Glucose 879 H* (74-99) mg/dL POC Glucose (mg/dL) >600 H* >600 H* (70-110) mg/dL Calcium (8.4-10.2) mg/dL Phosphorus (2.5-4.5) mg/dL ALT (4-34) U/L Alkaline Phosphatase (38-126) U/L Total Protein (6.3-8.2) g/dL 05/14/25 05/14/25 Range/Units 06:08 07:14 RBC (4.10-5.20) 10*6/uL Hgb (12.0-15.0) g/dL Hct (37.2-46.3) % MCH (27.0-32.0) pg Lymphocytes # (0.90-5.00) 10*3/uL PT (10.0-12.5) sec INR (<1.2) VBG HCO3 (24-28) mmol/L Sodium (137-145) mmol/L Potassium (3.5-5.1) mmol/L Chloride (98-107) mmol/L Carbon Dioxide (22-30) mmol/L BUN (7-17) mg/dL Creatinine (0.52-1.04) mg/dL Glucose (74-99) mg/dL POC Glucose (mg/dL) >600 H* 581 H* (70-110) mg/dL Calcium (8.4-10.2) mg/dL Phosphorus (2.5-4.5) mg/dL ALT (4-34) U/L Alkaline Phosphatase (38-126) U/L Total Protein (6.3-8.2) g/dL
[2025-05-14 15:17] LABS: Glucose,Whole Blood 106 mg/dL (70-110)
[2025-05-14 16:34] LABS: Glucose,Whole Blood 84 mg/dL (70-110)
[2025-05-14] MEDS: D5-0.45% NACL WITH KCL 20MEQ/L 1,000 ML IV SCH (17:23)
[2025-05-14 17:51] LABS: Glucose,Whole Blood 89 mg/dL (70-110)
[2025-05-14] MEDS: DIVALPROEX 500 MG TABLET.DR PO SCH (18:04)
[2025-05-14] MEDS: METOCLOPRAMIDE 5 MG/ML 2 ML VIAL IVP PRN (18:04)
[2025-05-14 18:38] LABS: Glucose,Whole Blood 131 mg/dL (70-110)
[2025-05-14 20:05] LABS: Glucose,Whole Blood 175 mg/dL (70-110)
[2025-05-14 21:00] LABS: Glucose,Whole Blood 220 mg/dL (70-110)
[2025-05-14] MEDS: ALPRAZolam 0.25 MG TAB PO PRN (21:40)
[2025-05-14] MEDS: diphenhydrAMINE 25 MG CAP PO PRN (21:40)
[2025-05-14] MEDS: IPRATROPIUM-ALBUTEROL 3 ML NEB INHALATION PRN (21:55)
[2025-05-14 22:06] LABS: Glucose,Whole Blood 312 mg/dL (70-110)
[2025-05-14 23:02] LABS: Glucose,Whole Blood 342 mg/dL (70-110)
[2025-05-14 23:57] LABS: Glucose,Whole Blood 388 mg/dL (70-110)
[2025-05-15 01:04] LABS: Glucose,Whole Blood 434 mg/dL (70-110)
[2025-05-15 01:31] LABS: African American GFR (CKD) 16 (>60 ml/min/1.73 sqM); Anion Gap 15 mmol/L; Blood Urea Nitrogen 36 mg/dL (7-17); Calcium 9.1 mg/dL (8.4-10.2); Carbon Dioxide 23 mmol/L (22-30); Chloride 94 mmol/L (98-107); Glucose 448 mg/dL (74-99); Non-African American GFR(CKD) 14 (>60 ml/min/1.73 sqM); Potassium 6.0 mmol/L (3.5-5.1); Sodium 132 mmol/L (137-145)
[2025-05-15 02:03] LABS: Glucose,Whole Blood 505 mg/dL (70-110)
[2025-05-15] MEDS: diphenhydrAMINE 50 MG/ML 1 ML VIAL IVP PRN ×2 (02:57→10:47)
[2025-05-15 03:24] LABS: Glucose,Whole Blood 501 mg/dL (70-110)
[2025-05-15 04:03] LABS: Glucose,Whole Blood 541 mg/dL (70-110)
[2025-05-15 05:01] LABS: Glucose,Whole Blood 565 mg/dL (70-110)
[2025-05-15] MEDS: LEVOTHYROXINE 88 MCG TAB PO SCH (05:09)
[2025-05-15 06:05] LABS: Glucose,Whole Blood 446 mg/dL (70-110)
--- NOTE | 2025-05-15 06:53 | XR ---
EXAMINATION TYPE: XR chest 1V DATE OF EXAM: 05/15/2025 6:40 AM COMPARISON: Multiple radiographs, with the most recent on 05/09/2025 TECHNIQUE: XR chest 1V Frontal and lateral views of the chest. CLINICAL INDICATION:Female, 35 years old with history of sob; FINDINGS: Lungs/Pleura: There is no evidence of pleural effusion, focal consolidation, or pneumothorax. Mild d iffuse increased lung markings again present. Heart/mediastinum: Cardiomediastinal silhouette is enla rged and stable. Musculoskeletal: No acute osseous pathology. IMPRESSION: Cardiomegaly and diffuse increased lung markings again present. Correlate with BNP for congestive hea rt failure. [facility], , 05/15/2025 6:50 AM
[2025-05-15 07:02] LABS: Glucose,Whole Blood 373 mg/dL (70-110)
[2025-05-15 07:51] LABS: Basophils # (A) 0.12 10*3/uL (0.00-0.10); Basophils % (A) 1.4 %; Eosinophils # (A) 0.94 10*3/uL (0.04-0.35); Eosinophils % (A) 10.7 %; HCT 26.8 % (37.2-46.3); HGB 9.2 g/dL (12.0-15.0); Lymphocytes # (A) 0.93 10*3/uL (0.90-5.00); Lymphocytes % (A) 10.6 %; MCH 33.2 pg (27.0-32.0); MCHC 34.3 g/dL (32.0-37.0); MCV 96.8 fL (80.0-97.0); Monocytes # (A) 0.88 10*3/uL (0.20-1.00); Monocytes % (A) 10.0 %; Neutrophils # (A) 5.86 10*3/uL (1.80-7.70); Neutrophils % (A) 66.6 %; Platelet Count 318 10*3/uL (140-440); RBC 2.77 10*6/uL (4.10-5.20); RDW 16.3 % (11.5-14.5); WBC 8.79 10*3/uL (4.50-10.00)
[2025-05-15 08:20] LABS: Glucose,Whole Blood 239 mg/dL (70-110)
[2025-05-15 08:27] LABS: ALT 77 U/L (4-34); AST 35 U/L (14-36); African American GFR (CKD) 17 (>60 ml/min/1.73 sqM); Albumin 4.0 g/dL (3.5-5.0); Alkaline Phosphatase 202 U/L (38-126); Anion Gap 14 mmol/L; Blood Urea Nitrogen 39 mg/dL (7-17); Calcium 8.5 mg/dL (8.4-10.2); Carbon Dioxide 23 mmol/L (22-30); Chloride 95 mmol/L (98-107); Glucose 316 mg/dL (74-99); Magnesium 1.6 mg/dL (1.6-2.3); Non-African American GFR(CKD) 15 (>60 ml/min/1.73 sqM); Potassium 4.5 mmol/L (3.5-5.1); Sodium 132 mmol/L (137-145); Total Protein 6.3 g/dL (6.3-8.2)
[2025-05-15 09:09] LABS: Glucose,Whole Blood 185 mg/dL (70-110)
[2025-05-15 09:57] LABS: Glucose,Whole Blood 136 mg/dL (70-110)
[2025-05-15 11:00] LABS: Glucose,Whole Blood 108 mg/dL (70-110)
[2025-05-15 11:55] LABS: Glucose,Whole Blood 104 mg/dL (70-110)
[2025-05-15] MEDS: SERTRALINE 100 MG TAB PO SCH (12:30)
[2025-05-15] MEDS: ASPIRIN 81 MG PO SCH (12:40)
[2025-05-15] MEDS ORDERED: DEXTROSE 50% SYRINGE 50 ML IVP PRN ×2 (12:56)
[2025-05-15 13:01] LABS: Glucose,Whole Blood 116 mg/dL (70-110)
--- NOTE | 2025-05-15 13:10 | P.PN ---
Subjective Progress Note Date: 05/15/25 Consulted for ESRD receiving hemodialysis //. She received HD this morning with ultrafiltration of 4L. She complains of chest discomfort, fatigue, and bilateral LE swelling. She is tearful and feeling anxious. She denies SOB or any other complaints. There is improvement in LE edema compared to yesterday. Vital signs are stable. General: No acute distress. HEENT: Head exam is unremarkable. LUNGS: No audible rhonchi or wheezes. HEART: Rate and Rhythm are regular. ABDOMEN: Nontender. EXTREMITITES: 1+ bilateral LE edema Objective - Vital Signs Vital signs: Vital Signs Temp 97.7 F 05/15/25 03:11 Pulse 86 05/15/25 08:10 Resp 16 05/15/25 08:10 BP 161/94 05/15/25 08:10 Pulse Ox 100 05/15/25 08:10 FiO2 Intake & Output 05/14/25 05/15/25 05/15/25 18:59 06:59 18:59 Intake Total 85.998 1479.329 491.426 Output Total 8400 Balance 85.998 -6920.671 491.426 Intake: IV 10 Invasive Line 4 10 Intake, IV Titration 85.998 49.329 11.426 Amount Insulin Regular 100 unit 85.998 49.329 11.426 In Sodium Chloride 0.9% 100 ml @ 0.1 UNITS/KG/HR 7.211 mls/hr IV .Q14H1M [facility] Rx#:[id number] Oral 1020 480 Hemodialysis 400 Output: Urine 0 Hemodialysis 4400 Hemodialysis Net Amount 4000 Other: Voiding Method Toilet # Voids 0 - Labs CBC & Chem 7: 05/15/25 07:11 05/15/25 15:00 Labs: Abnormal Lab Results - Last 24 Hours (Table) 05/14/25 05/14/25 05/14/25 Range/Units 09:01 10:12 11:12 RBC (4.10-5.20) 10*6/uL Hgb (12.0-15.0) g/dL Hct (37.2-46.3) % MCH (27.0-32.0) pg Immature Gran # (0.00-0.04) 10*3/uL Eosinophils # (0.04-0.35) 10*3/uL Basophils # (0.00-0.10) 10*3/uL Sodium (137-145) mmol/L Potassium (3.5-5.1) mmol/L Chloride (98-107) mmol/L BUN (7-17) mg/dL Creatinine (0.52-1.04) mg/dL Glucose (74-99) mg/dL POC Glucose (mg/dL) 411 H 335 H 266 H (70-110) mg/dL ALT (4-34) U/L Alkaline Phosphatase (38-126) U/L 05/14/25 05/14/25 05/14/25 Range/Units 11:18 12:08 13:01 RBC (4.10-5.20) 10*6/uL Hgb (12.0-15.0) g/dL Hct (37.2-46.3) % MCH (27.0-32.0) pg Immature Gran # (0.00-0.04) 10*3/uL Eosinophils # (0.04-0.35) 10*3/uL Basophils # (0.00-0.10) 10*3/uL Sodium 125 L (137-145) mmol/L Potassium (3.5-5.1) mmol/L Chloride 82 L (98-107) mmol/L BUN 65 H (7-17) mg/dL Creatinine 5.91 H (0.52-1.04) mg/dL Glucose 217 H (74-99) mg/dL POC Glucose (mg/dL) 206 H 131 H (70-110) mg/dL ALT (4-34) U/L Alkaline Phosphatase (38-126) U/L 05/14/25 05/14/25 05/14/25 Range/Units 18:33 19:56 20:59 RBC (4.10-5.20) 10*6/uL Hgb (12.0-15.0) g/dL Hct (37.2-46.3) % MCH (27.0-32.0) pg Immature Gran # (0.00-0.04) 10*3/uL Eosinophils # (0.04-0.35) 10*3/uL Basophils # (0.00-0.10) 10*3/uL Sodium (137-145) mmol/L Potassium (3.5-5.1) mmol/L Chloride (98-107) mmol/L BUN (7-17) mg/dL Creatinine (0.52-1.04) mg/dL Glucose (74-99) mg/dL POC Glucose (mg/dL) 131 H 175 H 220 H (70-110) mg/dL ALT (4-34) U/L Alkaline Phosphatase (38-126) U/L 05/14/25 05/14/25 05/14/25 Range/Units 22:04 23:00 23:55 RBC (4.10-5.20) 10*6/uL Hgb (12.0-15.0) g/dL Hct (37.2-46.3) % MCH (27.0-32.0) pg Immature Gran # (0.00-0.04) 10*3/uL Eosinophils # (0.04-0.35) 10*3/uL Basophils # (0.00-0.10) 10*3/uL Sodium (137-145) mmol/L Potassium (3.5-5.1) mmol/L Chloride (98-107) mmol/L BUN (7-17) mg/dL Creatinine (0.52-1.04) mg/dL Glucose (74-99) mg/dL POC Glucose (mg/dL) 312 H 342 H 388 H (70-110) mg/dL ALT (4-34) U/L Alkaline Phosphatase (38-126) U/L 05/15/25 05/15/25 05/15/25 Range/Units 00:54 01:01 02:00 RBC (4.10-5.20) 10*6/uL Hgb (12.0-15.0) g/dL Hct (37.2-46.3) % MCH (27.0-32.0) pg Immature Gran # (0.00-0.04) 10*3/uL Eosinophils # (0.04-0.35) 10*3/uL Basophils # (0.00-0.10) 10*3/uL Sodium 132 L (137-145) mmol/L Potassium 6.0 H (3.5-5.1) mmol/L Chloride 94 L (98-107) mmol/L BUN 36 H (7-17) mg/dL Creatinine 4.00 H (0.52-1.04) mg/dL Glucose 448 H (74-99) mg/dL POC Glucose (mg/dL) 434 H 505 H* (70-110) mg/dL ALT (4-34) U/L Alkaline Phosphatase (38-126) U/L 05/15/25 05/15/25 05/15/25 Range/Units 03:22 04:00 04:58 RBC (4.10-5.20) 10*6/uL Hgb (12.0-15.0) g/dL Hct (37.2-46.3) % MCH (27.0-32.0) pg Immature Gran # (0.00-0.04) 10*3/uL Eosinophils # (0.04-0.35) 10*3/uL Basophils # (0.00-0.10) 10*3/uL Sodium (137-145) mmol/L Potassium (3.5-5.1) mmol/L Chloride (98-107) mmol/L BUN (7-17) mg/dL Creatinine (0.52-1.04) mg/dL Glucose (74-99) mg/dL POC Glucose (mg/dL) 501 H* 541 H* 565 H* (70-110) mg/dL ALT (4-34) U/L Alkaline Phosphatase (38-126) U/L 05/15/25 05/15/25 05/15/25 Range/Units 06:04 07:00 07:11 RBC 2.77 L (4.10-5.20) 10*6/uL Hgb 9.2 L (12.0-15.0) g/dL Hct 26.8 L (37.2-46.3) % MCH 33.2 H (27.0-32.0) pg Immature Gran # 0.06 H (0.00-0.04) 10*3/uL Eosinophils # 0.94 H (0.04-0.35) 10*3/uL Basophils # 0.12 H (0.00-0.10) 10*3/uL Sodium (137-145) mmol/L Potassium (3.5-5.1) mmol/L Chloride (98-107) mmol/L BUN (7-17) mg/dL Creatinine (0.52-1.04) mg/dL Glucose (74-99) mg/dL POC Glucose (mg/dL) 446 H 373 H (70-110) mg/dL ALT (4-34) U/L Alkaline Phosphatase (38-126) U/L 05/15/25 05/15/25 Range/Units 07:11 08:18 RBC (4.10-5.20) 10*6/uL Hgb (12.0-15.0) g/dL Hct (37.2-46.3) % MCH (27.0-32.0) pg Immature Gran # (0.00-0.04) 10*3/uL Eosinophils # (0.04-0.35) 10*3/uL Basophils # (0.00-0.10) 10*3/uL Sodium 132 L (137-145) mmol/L Potassium (3.5-5.1) mmol/L Chloride 95 L (98-107) mmol/L BUN 39 H (7-17) mg/dL Creatinine 3.83 H (0.52-1.04) mg/dL Glucose 316 H (74-99) mg/dL POC Glucose (mg/dL) 239 H (70-110) mg/dL ALT 77 H (4-34) U/L Alkaline Phosphatase 202 H (38-126) U/L Assessment and Plan Plan: Assessment: 1. End-stage renal disease maintained on hemodialysis on Wednesday schedule. 2. DKA maintained on insulin drip and IV fluids. 3. Hypertonic hyponatremia secondary to hyperglycemia. Corrected sodium near normal on admission. 4. Hyperkalemia secondary to hyperglycemia and chronic kidney disease. Improved. 5. Volume overload. 6. Chronic kidney disease mineral bone disease. On PhosLo. 7. Hypertension with chronic kidney disease. Plan: D/c IV Normal Saline Hemodialysis today, 4 L removed. HD again on . Skye Dougherty MD Internal Medicine PGY1 Nephrology service I have seen and examined the patient with resident and agree with A&P as written. Seen while on HD. Edema better. Challenge UF. D/C IV fluids.
[2025-05-15] MEDS: INSULIN GLARGINE (LANTUS) 100 UNIT/ML SYR SQ SCH (13:41)
[2025-05-15] MEDS: PANTOPRAZOLE 40 MG TABLET PO STA (13:55)
[2025-05-15 13:56] VITALS: BMI 23.9
[2025-05-15 15:40] LABS: African American GFR (CKD) 28 (>60 ml/min/1.73 sqM); Anion Gap 14 mmol/L; Blood Urea Nitrogen 18 mg/dL (7-17); Calcium 9.2 mg/dL (8.4-10.2); Carbon Dioxide 26 mmol/L (22-30); Chloride 96 mmol/L (98-107); Glucose 208 mg/dL (74-99); Non-African American GFR(CKD) 24 (>60 ml/min/1.73 sqM); Potassium 4.5 mmol/L (3.5-5.1); Sodium 136 mmol/L (137-145)
[2025-05-15 16:32] LABS: Glucose,Whole Blood 340 mg/dL (70-110)
[2025-05-15] MEDS: INSULIN LISPRO (HumaLOG) 100 UNIT/ML 10 mL VL SQ SCH (16:54)
[2025-05-15] MEDS: PANTOPRAZOLE 40 MG TABLET PO SCH (16:58)
--- NOTE | 2025-05-15 17:30 | P.PN ---
Subjective Subjective: Patient is a 35-year-old female with HFpEF (60% EF) 2024), type 1 diabetes, GERD, hypertension, ESRD (hemodialysis Saturdays), seizure disorder, hypothyroidism, anxiety, depression here for evaluation of extremity swelling and elevated blood sugars. Patient reported that on admission day, she was began to have swelling of her lower extremities and abdomen with shortness of breath. She was also found to have uncontrolled blood sugars levels. She denied chest pain, palpitations, focal weakness, abdominal p ain, productive cough, fever, chills. Her last hemodialysis session was on Wednesday. 05/15. Patient seen at bedside. She received hemodialysis this morning with ultrafiltration of 4 L. Complaining of not being able to sleep overnight due to increased anxiety, panic attack, pruritus. She reported eating her breakfast this morning. Bilateral pedal edema significantly decreased from previously as noted by patient herself. Pertinent positives and negatives discussed above, a complete review of systems was preformed and all the other sytems were negative. Vitals Signs Reviewed. Heart rate 79, respiratory 16, blood pressure 138/73, on 2 L of oxygen with SpO2 of 99%. General: non toxic, no distress, appears at stated age, normal weight Derm: no unusual rashes/lesions, warm Head: atraumatic, normocephalic, symmetric Eyes: EOMI, no lid lag, anicteric sclera, pupils equal round reactive to light ENT: Nose and ears atraumatic Neck: No cervical lymphadenopathy, trachea midline, supple Mouth: no lip lesion, mucus membranes moist Cardiovascular: S1S2 reg, no murmur, positive dorsalis pedis pulse bilateral, reduced pedal edema Lungs: Decreased air entry bilaterally, no rhonchi, no rales, no accessory muscle use Abdominal: soft, nontender to palpation, no guarding Ext: muscle strength 5 out of 5 in all 4 extremities grossly, no gross muscle atrophy, no contractures, Neuro: CN II-XI grossly intact, no gross focal neuro deficits Psych: Alert, oriented, appropriate affect Data Reveiwed Today: 05/15/2025 Patient Labs: Hemoglobin 9.2 creatinine blood cells 8.79, sodium 136, potassium 4.5, glucose 208, anion gap 14 (previously 17). Imaging: Chest x-ray indicates cardiomegaly and diffuse increased lung markings. No evidence of pleural effusion, focal consolidation or pneumothorax. Assesment and Plan: # Acute on Chronic HFpEF (EF 60% based on echo April 30, 2025) #Sinus bradycardia Chest x-ray showed cardiomegaly with increased interstitial lung markings EKG independently interpreted showed sinus bradycardia Cardiac monitoring Supplemental oxygen as needed Fluid restriction Strict Is and Os. Daily weights Echocardiogram done in April 2025 showed EF of 60% with RVSP of 44 Consult cardiology # DKA #Hyponatremia secondary to above Discontinue insulin drip. Started long acting and short acting insulin. Hemoglobin A1c 7.3 in March 2025 Hold home medications Glucose Accu-Cheks every hour Monitor electrolytes and glucose every 4 hours Monitor for hypoglycemia # ESRD on hemodialysis ([facility]) Last hemodialysis Wednesday (05/15/2025) Discontinue IV normal sodium. Nephro on consult - Thank you for your recommendations. DVT ppx: Heparin subcut Code Status: Full Anticipated discharge time: Home Attestation I have seen and examined this patient with my resident , discussed the same with the resident/ANTHONY, and agree with the dictator's assessment and plan as written Dr. Getachew son Objective - Vital Signs Vital signs: Vital Signs Temp 97.2 F L 05/15/25 12:32 Pulse 79 05/15/25 16:00 Resp 16 05/15/25 16:00 BP 138/73 05/15/25 16:00 Pulse Ox 99 05/15/25 16:00 FiO2 Intake & Output 05/14/25 05/15/25 05/15/25 18:59 06:59 18:59 Intake Total 85.998 1479.329 925.893 Output Total 8400 8400 Balance 85.998 -6920.671 -7474.107 Weight 71.4 kg Intake: IV 10 10 Invasive Line 4 10 10 Intake, IV Titration 85.998 49.329 35.893 Amount Insulin Regular 100 unit 85.998 49.329 35.893 In Sodium Chloride 0.9% 100 ml @ 0.1 UNITS/KG/HR 7.211 mls/hr IV .Q14H1M [facility] Rx#:[id number] Oral 1020 480 Hemodialysis 400 400 Output: Urine 0 Hemodialysis 4400 4400 Hemodialysis Net Amount 4000 4000 Other: Voiding Method Toilet # Voids 0 - Labs CBC & Chem 7: 05/16/25 08:46 05/15/25 15:00 Labs: Abnormal Lab Results - Last 24 Hours (Table) 05/14/25 05/14/25 05/14/25 Range/Units 18:33 19:56 20:59 RBC (4.10-5.20) 10*6/uL Hgb (12.0-15.0) g/dL Hct (37.2-46.3) % MCH (27.0-32.0) pg Immature Gran # (0.00-0.04) 10*3/uL Eosinophils # (0.04-0.35) 10*3/uL Basophils # (0.00-0.10) 10*3/uL Sodium (137-145) mmol/L Potassium (3.5-5.1) mmol/L Chloride (98-107) mmol/L BUN (7-17) mg/dL Creatinine (0.52-1.04) mg/dL Glucose (74-99) mg/dL POC Glucose (mg/dL) 131 H 175 H 220 H (70-110) mg/dL ALT (4-34) U/L Alkaline Phosphatase (38-126) U/L 05/14/25 05/14/25 05/14/25 Range/Units 22:04 23:00 23:55 RBC (4.10-5.20) 10*6/uL Hgb (12.0-15.0) g/dL Hct (37.2-46.3) % MCH (27.0-32.0) pg Immature Gran # (0.00-0.04) 10*3/uL Eosinophils # (0.04-0.35) 10*3/uL Basophils # (0.00-0.10) 10*3/uL Sodium (137-145) mmol/L Potassium (3.5-5.1) mmol/L Chloride (98-107) mmol/L BUN (7-17) mg/dL Creatinine (0.52-1.04) mg/dL Glucose (74-99) mg/dL POC Glucose (mg/dL) 312 H 342 H 388 H (70-110) mg/dL ALT (4-34) U/L Alkaline Phosphatase (38-126) U/L 05/15/25 05/15/25 05/15/25 Range/Units 00:54 01:01 02:00 RBC (4.10-5.20) 10*6/uL Hgb (12.0-15.0) g/dL Hct (37.2-46.3) % MCH (27.0-32.0) pg Immature Gran # (0.00-0.04) 10*3/uL Eosinophils # (0.04-0.35) 10*3/uL Basophils # (0.00-0.10) 10*3/uL Sodium 132 L (137-145) mmol/L Potassium 6.0 H (3.5-5.1) mmol/L Chloride 94 L (98-107) mmol/L BUN 36 H (7-17) mg/dL Creatinine 4.00 H (0.52-1.04) mg/dL Glucose 448 H (74-99) mg/dL POC Glucose (mg/dL) 434 H 505 H* (70-110) mg/dL ALT (4-34) U/L Alkaline Phosphatase (38-126) U/L 05/15/25 05/15/25 05/15/25 Range/Units 03:22 04:00 04:58 RBC (4.10-5.20) 10*6/uL Hgb (12.0-15.0) g/dL Hct (37.2-46.3) % MCH (27.0-32.0) pg Immature Gran # (0.00-0.04) 10*3/uL Eosinophils # (0.04-0.35) 10*3/uL Basophils # (0.00-0.10) 10*3/uL Sodium (137-145) mmol/L Potassium (3.5-5.1) mmol/L Chloride (98-107) mmol/L BUN (7-17) mg/dL Creatinine (0.52-1.04) mg/dL Glucose (74-99) mg/dL POC Glucose (mg/dL) 501 H* 541 H* 565 H* (70-110) mg/dL ALT (4-34) U/L Alkaline Phosphatase (38-126) U/L 05/15/25 05/15/25 05/15/25 Range/Units 06:04 07:00 07:11 RBC 2.77 L (4.10-5.20) 10*6/uL Hgb 9.2 L (12.0-15.0) g/dL Hct 26.8 L (37.2-46.3) % MCH 33.2 H (27.0-32.0) pg Immature Gran # 0.06 H (0.00-0.04) 10*3/uL Eosinophils # 0.94 H (0.04-0.35) 10*3/uL Basophils # 0.12 H (0.00-0.10) 10*3/uL Sodium (137-145) mmol/L Potassium (3.5-5.1) mmol/L Chloride (98-107) mmol/L BUN (7-17) mg/dL Creatinine (0.52-1.04) mg/dL Glucose (74-99) mg/dL POC Glucose (mg/dL) 446 H 373 H (70-110) mg/dL ALT (4-34) U/L Alkaline Phosphatase (38-126) U/L 05/15/25 05/15/25 05/15/25 Range/Units 07:11 08:18 09:07 RBC (4.10-5.20) 10*6/uL Hgb (12.0-15.0) g/dL Hct (37.2-46.3) % MCH (27.0-32.0) pg Immature Gran # (0.00-0.04) 10*3/uL Eosinophils # (0.04-0.35) 10*3/uL Basophils # (0.00-0.10) 10*3/uL Sodium 132 L (137-145) mmol/L Potassium (3.5-5.1) mmol/L Chloride 95 L (98-107) mmol/L BUN 39 H (7-17) mg/dL Creatinine 3.83 H (0.52-1.04) mg/dL Glucose 316 H (74-99) mg/dL POC Glucose (mg/dL) 239 H 185 H (70-110) mg/dL ALT 77 H (4-34) U/L Alkaline Phosphatase 202 H (38-126) U/L 05/15/25 05/15/25 05/15/25 Range/Units 09:56 12:59 15:00 RBC (4.10-5.20) 10*6/uL Hgb (12.0-15.0) g/dL Hct (37.2-46.3) % MCH (27.0-32.0) pg Immature Gran # (0.00-0.04) 10*3/uL Eosinophils # (0.04-0.35) 10*3/uL Basophils # (0.00-0.10) 10*3/uL Sodium 136 L (137-145) mmol/L Potassium (3.5-5.1) mmol/L Chloride 96 L (98-107) mmol/L BUN 18 H (7-17) mg/dL Creatinine 2.52 H (0.52-1.04) mg/dL Glucose 208 H (74-99) mg/dL POC Glucose (mg/dL) 136 H 116 H (70-110) mg/dL ALT (4-34) U/L Alkaline Phosphatase (38-126) U/L
[2025-05-15 20:46] LABS: Glucose,Whole Blood 412 mg/dL (70-110)
[2025-05-16] MEDS: oxyCODONE-APAP 10-325MG 1 EACH TAB PO PRN (04:02)
[2025-05-16 06:15] LABS: Glucose,Whole Blood 544 mg/dL (70-110)
[2025-05-16 06:15] LABS: Glucose,Whole Blood 560 mg/dL (70-110)
[2025-05-16] MEDS: INSULIN LISPRO (HumaLOG) 100 UNIT/ML 10 mL VL SQ SCH ×2 (07:05→12:18)
[2025-05-16] MEDS: INSULIN GLARGINE (LANTUS) 100 UNIT/ML SYR SQ SCH (07:31)
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
[2025-05-16 09:06] LABS: Basophils # (A) 0.10 10*3/uL (0.00-0.10); Basophils % (A) 1.1 %; Eosinophils # (A) 1.70 10*3/uL (0.04-0.35); Eosinophils % (A) 19.2 %; HCT 28.4 % (37.2-46.3); HGB 9.3 g/dL (12.0-15.0); Lymphocytes # (A) 0.75 10*3/uL (0.90-5.00); Lymphocytes % (A) 8.5 %; MCH 32.5 pg (27.0-32.0); MCHC 32.7 g/dL (32.0-37.0); MCV 99.3 fL (80.0-97.0); Monocytes # (A) 0.70 10*3/uL (0.20-1.00); Monocytes % (A) 7.9 %; Neutrophils # (A) 5.54 10*3/uL (1.80-7.70); Neutrophils % (A) 62.5 %; Platelet Count 290 10*3/uL (140-440); RBC 2.86 10*6/uL (4.10-5.20); RDW 16.7 % (11.5-14.5); WBC 8.86 10*3/uL (4.50-10.00)
[2025-05-16 10:08] LABS: ALT 66 U/L (4-34); AST 30 U/L (14-36); African American GFR (CKD) 16 (>60 ml/min/1.73 sqM); Albumin 3.9 g/dL (3.5-5.0); Alkaline Phosphatase 244 U/L (38-126); Anion Gap 13 mmol/L; Blood Urea Nitrogen 28 mg/dL (7-17); Calcium 8.9 mg/dL (8.4-10.2); Carbon Dioxide 23 mmol/L (22-30); Chloride 94 mmol/L (98-107); Magnesium 1.9 mg/dL (1.6-2.3); Non-African American GFR(CKD) 14 (>60 ml/min/1.73 sqM); Sodium 130 mmol/L (137-145); Total Protein 6.2 g/dL (6.3-8.2)
[2025-05-16 10:22] LABS: Glucose 598 mg/dL (74-99); Potassium 6.3 mmol/L (3.5-5.1)
[2025-05-16 11:22] LABS: Glucose,Whole Blood 494 mg/dL (70-110)
[2025-05-16] MEDS: CALCIUM GLUCONATE IN NACL 1 GM in SALINE 1 100ML.BAG IVPB ONE (12:16)
[2025-05-16] MEDS: SODIUM ZIRCONIUM CYCLOSILICATE 10 GM PACKET PO SCH (12:17)
--- NOTE | 2025-05-16 12:24 | P.PN ---
Subjective Progress Note Date: 05/16/25 Consulted for ESRD receiving hemodialysis ///. She complains of chest discomfort and tiredness. She denies SOB or any other complaints. Potassium 6.3 this morning. HD planned today for 2 hours. Vital signs are stable. General: No acute distress. HEENT: Head exam is unremarkable. LUNGS: No audible rhonchi or wheezes. HEART: Rate and Rhythm are regular. ABDOMEN: Nontender. EXTREMITITES: trace pedal edema Objective - Vital Signs Vital signs: Vital Signs Temp 98.5 F 05/16/25 08:04 Pulse 89 05/16/25 08:04 Resp 16 05/16/25 08:04 BP 159/81 05/16/25 08:04 Pulse Ox 100 05/16/25 08:04 FiO2 Intake & Output 05/15/25 05/16/25 05/16/25 18:59 06:59 18:59 Intake Total 1172.893 210 Output Total 8400 Balance -7227.107 210 Weight 71.4 kg 76.7 kg Intake: IV 20 10 Invasive Line 4 20 10 Intake, IV Titration 35.893 Amount Insulin Regular 100 unit 35.893 In Sodium Chloride 0.9% 100 ml @ 0.1 UNITS/KG/HR 7.211 mls/hr IV .Q14H1M [facility] Rx#:[id number] Oral 717 200 Hemodialysis 400 Output: Hemodialysis 4400 Hemodialysis Net Amount 4000 Other: Voiding Method Toilet # Voids 2 1 - Labs CBC & Chem 7: 05/16/25 08:46 05/16/25 08:46 Labs: Abnormal Lab Results - Last 24 Hours (Table) 05/15/25 05/15/25 05/15/25 Range/Units 09:56 12:59 15:00 RBC (4.10-5.20) 10*6/uL Hgb (12.0-15.0) g/dL Hct (37.2-46.3) % MCV (80.0-97.0) fL MCH (27.0-32.0) pg Immature Gran # (0.00-0.04) 10*3/uL Lymphocytes # (0.90-5.00) 10*3/uL Eosinophils # (0.04-0.35) 10*3/uL Sodium 136 L (137-145) mmol/L Chloride 96 L (98-107) mmol/L BUN 18 H (7-17) mg/dL Creatinine 2.52 H (0.52-1.04) mg/dL Glucose 208 H (74-99) mg/dL POC Glucose (mg/dL) 136 H 116 H (70-110) mg/dL 05/15/25 05/15/25 05/16/25 Range/Units 16:31 20:46 06:12 RBC (4.10-5.20) 10*6/uL Hgb (12.0-15.0) g/dL Hct (37.2-46.3) % MCV (80.0-97.0) fL MCH (27.0-32.0) pg Immature Gran # (0.00-0.04) 10*3/uL Lymphocytes # (0.90-5.00) 10*3/uL Eosinophils # (0.04-0.35) 10*3/uL Sodium (137-145) mmol/L Chloride (98-107) mmol/L BUN (7-17) mg/dL Creatinine (0.52-1.04) mg/dL Glucose (74-99) mg/dL POC Glucose (mg/dL) 340 H 412 H 560 H* (70-110) mg/dL 05/16/25 05/16/25 Range/Units 06:13 08:46 RBC 2.86 L (4.10-5.20) 10*6/uL Hgb 9.3 L (12.0-15.0) g/dL Hct 28.4 L (37.2-46.3) % MCV 99.3 H (80.0-97.0) fL MCH 32.5 H (27.0-32.0) pg Immature Gran # 0.07 H (0.00-0.04) 10*3/uL Lymphocytes # 0.75 L (0.90-5.00) 10*3/uL Eosinophils # 1.70 H (0.04-0.35) 10*3/uL Sodium (137-145) mmol/L Chloride (98-107) mmol/L BUN (7-17) mg/dL Creatinine (0.52-1.04) mg/dL Glucose (74-99) mg/dL POC Glucose (mg/dL) 544 H* (70-110) mg/dL Assessment and Plan Plan: Assessment: 1. End-stage renal disease maintained on hemodialysis on Wednesday schedule. 2. DKA s/p insulin drip and IV fluids. 3. Hypertonic hyponatremia secondary to hyperglycemia. Corrected sodium near normal on admission. 4. Hyperkalemia secondary to hyperglycemia and chronic kidney disease. Improved. 5. Volume overload. 6. Chronic kidney disease mineral bone disease. On PhosLo. 7. Hypertension with chronic kidney disease. Plan: Started on Lokelma 10gm PO BID Ordered f/u Potassium 17:00 today HD for 2 hours today Avoid nephrotoxic drugs Check BMP and Mg Skye Dougherty MD Internal Medicine PGY1 Nephrology service I have seen and examined the patient with resident and agree with A&P as written. s/p IV calcium. Tight blood glucose control -discussed with RN. Resumed lokelma. HD today and tomorrow.
--- NOTE | 2025-05-16 15:30 | P.PN ---
Subjective Subjective: Patient is a 35-year-old female with HFpEF (60% EF) 2024), type 1 diabetes, GERD, hypertension, ESRD (hemodialysis Saturdays), seizure disorder, hypothyroidism, anxiety, depression here for evaluation of extremity swelling and elevated blood sugars. Patient reported that on admission day, she began to have swelling of her lower extremities and abdomen with shortness of breath. She was also found to have uncontrolled blood sugars levels. She denied chest pain, palpitations, focal weakness, abdominal pain, productive cough, fever, chills. Her last hemodialysis session was on Wednesday. 05/16. Patient seen at bedside. Reported feeling dizzy and nauseous. Insulin drip stopped yesterday and she was placed on Lantus and Humalog. She had a morning episode of hyperglycemia with glucose of 544. Insulin Lantus was increased to 20 units twice a day (from 10 units twice a day) and Humalog was increased to 8 units.. Hyperkalemic (6.3), thus started on hyperkalemia protocol and 1 session of hemodialysis for 2 hours as per nephrology recommendations. Significantly decreased bilateral pedal edema from previous. Pertinent positives and negatives discussed above, a complete review of systems was preformed and all the other sytems were negative. Vitals Signs Reveiwed. Temperature 98.5 F, pulse rate 89, respirate 16, blood pressure 159/81, SPO2 of 100 on 2 L of nasal cannula. General: non toxic, no distress, appears at stated age, normal weight. Derm: no unusual rashes/lesions, warm Head: atraumatic, normocephalic, symmetric Eyes: EOMI, no lid lag, anicteric sclera, pupils equal round reactive to light ENT: Nose and ears atraumatic Neck: No cervical lymphadenopathy, trachea midline, supple Mouth: no lip lesion, mucus membranes moist Cardiovascular: S1S2 reg, no murmur, positive dorsalis pedis pulse bilateral, no edema Lungs: Decreased air entry bilaterally, no rhonchi, no rales, no accessory muscle use Abdominal: soft, nontender to palpation, no guarding Ext: muscle strength 5 out of 5 in all 4 extremities grossly, no gross muscle atrophy, no contractures, Neuro: CN II-XI grossly intact, no gross focal neuro deficits Psych: Alert, oriented, appropriate affect Data Reveiwed Today: 05-16-2025 Patient Labs: Glucose 494, White blood cells 8.86, hemoglobin 9.3, anion gap 13, sodium 130, potassium 6.3 (stat hemodialysis for 2 hours today), hemoglobin A1c 9.2. Assesment and Plan: # Acute on Chronic HFpEF (EF 60% based on echo April 30, 2025) #Sinus bradycardia Chest x-ray showed cardiomegaly with increased interstitial lung markings EKG independently interpreted showed sinus bradycardia Cardiac monitoring Supplemental oxygen as needed Fluid restriction Strict Is and Os. Daily weights Echocardiogram done in April 2025 showed EF of 60% with RVSP of 44 # DKA #Hyponatremia secondary to above Continue with Lantus 20 units twice daily. Increase insulin lispro to 8 units (previously 5 units) Hemoglobin A1c 9.2 (05/16/2025) Hold home medications Glucose Accu-Cheks every hour Monitor electrolytes and glucose every 4 hours Monitor for hypoglycemia # ESRD on hemodialysis ([facility]) 1 stat session of hemodialysis today due to hyperkalemia (6.3) Restarted clonidine (home medication) for persistent hypertension. Started on Lokelma 10gm PO BID f/u Potassium 17:00 today HD for 2 hours today Avoid nephrotoxic drugs Check BMP and Mg Nephro on consult, thank you for your recommendations. #Anxiety Psychiatry on consult -Thank you for your recommendations. Xanax 0.25 mg take 1 tablet by mouth twice daily for panic disorder Zoloft 200 mg take 1 tablet by mouth once daily for depression/anxiety Start Mirtazapine 7.5 mg take 1 tablet by mouth at bedtime for insomnia/lack of appetite/anxiety/depression. DVT ppx: Heparin subcut Code Status: Full Anticipated discharge place: home Omid Tobar MD PGY1 Internal Medicine Attestation I have seen and examined this patient with my resident , discussed the same with the resident/ANTHONY, and agree with the dictator's assessment and plan as written Dr. Getachew son Objective - Vital Signs Vital signs: Vital Signs Temp 98.5 F 05/16/25 08:04 Pulse 89 05/16/25 08:04 Resp 16 05/16/25 08:04 BP 159/81 05/16/25 08:04 Pulse Ox 100 05/16/25 08:04 FiO2 Intake & Output 05/15/25 05/16/25 05/16/25 18:59 06:59 18:59 Intake Total 1172.893 210 Output Total 8400 Balance -7227.107 210 Weight 71.4 kg 76.7 kg Intake: IV 20 10 Invasive Line 4 20 10 Intake, IV Titration 35.893 Amount Insulin Regular 100 unit 35.893 In Sodium Chloride 0.9% 100 ml @ 0.1 UNITS/KG/HR 7.211 mls/hr IV .Q14H1M [facility] Rx#:[id number] Oral 717 200 Hemodialysis 400 Output: Hemodialysis 4400 Hemodialysis Net Amount 4000 Other: Voiding Method Toilet # Voids 2 1 - Labs CBC & Chem 7: 05/17/25 07:53 05/17/25 07:53 Labs: Abnormal Lab Results - Last 24 Hours (Table) 05/15/25 05/15/25 05/15/25 Range/Units 09:07 09:56 12:59 RBC (4.10-5.20) 10*6/uL Hgb (12.0-15.0) g/dL Hct (37.2-46.3) % MCV (80.0-97.0) fL MCH (27.0-32.0) pg Immature Gran # (0.00-0.04) 10*3/uL Lymphocytes # (0.90-5.00) 10*3/uL Eosinophils # (0.04-0.35) 10*3/uL Sodium (137-145) mmol/L Chloride (98-107) mmol/L BUN (7-17) mg/dL Creatinine (0.52-1.04) mg/dL Glucose (74-99) mg/dL POC Glucose (mg/dL) 185 H 136 H 116 H (70-110) mg/dL 05/15/25 05/15/25 05/15/25 Range/Units 15:00 16:31 20:46 RBC (4.10-5.20) 10*6/uL Hgb (12.0-15.0) g/dL Hct (37.2-46.3) % MCV (80.0-97.0) fL MCH (27.0-32.0) pg Immature Gran # (0.00-0.04) 10*3/uL Lymphocytes # (0.90-5.00) 10*3/uL Eosinophils # (0.04-0.35) 10*3/uL Sodium 136 L (137-145) mmol/L Chloride 96 L (98-107) mmol/L BUN 18 H (7-17) mg/dL Creatinine 2.52 H (0.52-1.04) mg/dL Glucose 208 H (74-99) mg/dL POC Glucose (mg/dL) 340 H 412 H (70-110) mg/dL 05/16/25 05/16/25 05/16/25 Range/Units 06:12 06:13 08:46 RBC 2.86 L (4.10-5.20) 10*6/uL Hgb 9.3 L (12.0-15.0) g/dL Hct 28.4 L (37.2-46.3) % MCV 99.3 H (80.0-97.0) fL MCH 32.5 H (27.0-32.0) pg Immature Gran # 0.07 H (0.00-0.04) 10*3/uL Lymphocytes # 0.75 L (0.90-5.00) 10*3/uL Eosinophils # 1.70 H (0.04-0.35) 10*3/uL Sodium (137-145) mmol/L Chloride (98-107) mmol/L BUN (7-17) mg/dL Creatinine (0.52-1.04) mg/dL Glucose (74-99) mg/dL POC Glucose (mg/dL) 560 H* 544 H* (70-110) mg/dL
[2025-05-16 16:45] LABS: Glucose,Whole Blood 106 mg/dL (70-110)
[2025-05-16 20:56] LABS: Glucose,Whole Blood 103 mg/dL (70-110)
[2025-05-17] MEDS: hydrALAZINE HCL 20 MG/ML 1 ML VIAL IVP PRN (00:51)
[2025-05-17 06:26] LABS: Glucose,Whole Blood 171 mg/dL (70-110)
[2025-05-17 08:14] LABS: Basophils # (A) 0.06 10*3/uL (0.00-0.10); Basophils % (A) 0.5 %; Eosinophils # (A) 2.11 10*3/uL (0.04-0.35); Eosinophils % (A) 17.3 %; HCT 27.5 % (37.2-46.3); HGB 8.9 g/dL (12.0-15.0); Lymphocytes # (A) 0.89 10*3/uL (0.90-5.00); Lymphocytes % (A) 7.3 %; MCH 32.7 pg (27.0-32.0); MCHC 32.4 g/dL (32.0-37.0); MCV 101.1 fL (80.0-97.0); Monocytes # (A) 0.55 10*3/uL (0.20-1.00); Monocytes % (A) 4.5 %; Neutrophils # (A) 8.54 10*3/uL (1.80-7.70); Neutrophils % (A) 70.1 %; Platelet Count 223 10*3/uL (140-440); RBC 2.72 10*6/uL (4.10-5.20); RDW 17.1 % (11.5-14.5); WBC 12.19 10*3/uL (4.50-10.00)
[2025-05-17 08:36] LABS: ALT 52 U/L (4-34); AST 24 U/L (14-36); African American GFR (CKD) 17 (>60 ml/min/1.73 sqM); Albumin 3.6 g/dL (3.5-5.0); Alkaline Phosphatase 165 U/L (38-126); Anion Gap 9 mmol/L; Blood Urea Nitrogen 27 mg/dL (7-17); Calcium 9.2 mg/dL (8.4-10.2); Carbon Dioxide 26 mmol/L (22-30); Chloride 102 mmol/L (98-107); Glucose 193 mg/dL (74-99); Magnesium 1.8 mg/dL (1.6-2.3); Non-African American GFR(CKD) 15 (>60 ml/min/1.73 sqM); Potassium 5.4 mmol/L (3.5-5.1); Sodium 137 mmol/L (137-145); Total Protein 6.0 g/dL (6.3-8.2)
[2025-05-17 11:45] LABS: Glucose,Whole Blood 112 mg/dL (70-110)
--- NOTE | 2025-05-17 12:52 | P.PN ---
Subjective Progress Note Date: 05/17/25 Consulted for ESRD receiving hemodialysis ///. She received HD today with 4L off. She denies chest pain and SOB. She has increased appetite this morning. She complains of swelling in her L arm where her HD is being administered. Potassium checked yesterday evening with a normal range of 4.9. Vital signs are stable. General: No acute distress. HEENT: Head exam is unremarkable. LUNGS: No audible rhonchi or wheezes. HEART: Rate and Rhythm are regular. ABDOMEN: Nontender. EXTREMITITES: trace pedal edema Objective - Vital Signs Vital signs: Vital Signs Temp 98.7 F 05/17/25 04:00 Pulse 83 05/17/25 04:00 Resp 19 05/17/25 04:00 BP 162/83 05/17/25 04:00 Pulse Ox 99 05/17/25 04:00 FiO2 Intake & Output 05/16/25 05/17/25 05/17/25 18:59 06:59 18:59 Intake Total 600 Output Total 4500 Balance -3900 Weight 77.7 kg Intake: IV 100 Calcium Gluconate in NaCl 100 1 gm In Saline 1 100ml. bag @ 100 mls/hr IVPB ONCE ONE Rx#:[id number] Hemodialysis 500 Output: Hemodialysis 2500 Hemodialysis Net Amount 2000 Other: Voiding Method Toilet # Voids 1 - Labs CBC & Chem 7: 05/17/25 07:53 05/17/25 14:46 Labs: Abnormal Lab Results - Last 24 Hours (Table) 05/16/25 05/16/25 05/16/25 Range/Units 08:46 08:46 08:46 WBC (4.50-10.00) 10*3/uL RBC 2.86 L (4.10-5.20) 10*6/uL Hgb 9.3 L (12.0-15.0) g/dL Hct 28.4 L (37.2-46.3) % MCV 99.3 H (80.0-97.0) fL MCH 32.5 H (27.0-32.0) pg Immature Gran # 0.07 H (0.00-0.04) 10*3/uL Lymphocytes # 0.75 L (0.90-5.00) 10*3/uL Eosinophils # 1.70 H (0.04-0.35) 10*3/uL Sodium 130 L (137-145) mmol/L Potassium 6.3 H* (3.5-5.1) mmol/L Chloride 94 L (98-107) mmol/L BUN 28 H (7-17) mg/dL Creatinine 4.04 H (0.52-1.04) mg/dL Glucose 598 H* (74-99) mg/dL POC Glucose (mg/dL) (70-110) mg/dL Hemoglobin A1c 9.2 H (<=6.0) % ALT 66 H (4-34) U/L Alkaline Phosphatase 244 H (38-126) U/L Total Protein 6.2 L (6.3-8.2) g/dL 05/16/25 05/17/25 05/17/25 Range/Units 11:21 06:24 07:53 WBC (4.50-10.00) 10*3/uL RBC (4.10-5.20) 10*6/uL Hgb (12.0-15.0) g/dL Hct (37.2-46.3) % MCV (80.0-97.0) fL MCH (27.0-32.0) pg Immature Gran # (0.00-0.04) 10*3/uL Lymphocytes # (0.90-5.00) 10*3/uL Eosinophils # (0.04-0.35) 10*3/uL Sodium (137-145) mmol/L Potassium 5.4 H (3.5-5.1) mmol/L Chloride (98-107) mmol/L BUN 27 H (7-17) mg/dL Creatinine 3.71 H (0.52-1.04) mg/dL Glucose 193 H (74-99) mg/dL POC Glucose (mg/dL) 494 H 171 H (70-110) mg/dL Hemoglobin A1c (<=6.0) % ALT 52 H (4-34) U/L Alkaline Phosphatase 165 H (38-126) U/L Total Protein 6.0 L (6.3-8.2) g/dL 05/17/25 Range/Units 07:53 WBC 12.19 H (4.50-10.00) 10*3/uL RBC 2.72 L (4.10-5.20) 10*6/uL Hgb 8.9 L (12.0-15.0) g/dL Hct 27.5 L (37.2-46.3) % MCV 101.1 H (80.0-97.0) fL MCH 32.7 H (27.0-32.0) pg Immature Gran # (0.00-0.04) 10*3/uL Lymphocytes # (0.90-5.00) 10*3/uL Eosinophils # (0.04-0.35) 10*3/uL Sodium (137-145) mmol/L Potassium (3.5-5.1) mmol/L Chloride (98-107) mmol/L BUN (7-17) mg/dL Creatinine (0.52-1.04) mg/dL Glucose (74-99) mg/dL POC Glucose (mg/dL) (70-110) mg/dL Hemoglobin A1c (<=6.0) % ALT (4-34) U/L Alkaline Phosphatase (38-126) U/L Total Protein (6.3-8.2) g/dL Assessment and Plan Plan: Assessment: 1. End-stage renal disease maintained on hemodialysis on Wednesday schedule. 2. DKA s/p insulin drip and IV fluids. 3. Hypertonic hyponatremia secondary to hyperglycemia. Corrected sodium near normal on admission. 4. Hyperkalemia secondary to hyperglycemia and chronic kidney disease. Improved. 5. Volume overload. 6. Chronic kidney disease mineral bone disease. On PhosLo. 7. Hypertension with chronic kidney disease. Plan: Continue Lokelma 10gm PO BID HD today with 4L ultrafiltrated Avoid nephrotoxic drugs Check BMP and Mg Skye Dougherty MD Internal Medicine PGY1 Nephrology service I have seen and examined the patient with resident and agree with A&P as written. Low k diet. Maintain lokelma.
[2025-05-17 13:30] VITALS: BP 136/73; PULSE 76; RESP 18; TEMP 98.5
--- NOTE | 2025-05-17 14:00 | P.DS ---
Providers Date of admission: 05/14/25 00:08 Attending physician: Dahiana Chan Consults: 05/14/25 00:32 Consult Physician Routine Consulting Provider: Gary Andrade Consult Reason/Comments: CKD Do you want consulting provider notified?: Yes 05/15/25 12:59 Consult Physician Routine Consulting Provider: Yvan Torres Consult Reason/Comments: anxiety Do you want consulting provider notified?: Yes Primary care physician: Rush Marroquin MD Hospital Course: Discharge Diagnosis: Patient is a 35-year-old female with HFpEF (60% EF) 2024), type 1 diabetes, GERD, hypertension, ESRD (hemodialysis Saturdays), seizure disorder, hypothyroidism, anxiety, depression here for evaluation of extremity swelling and elevated blood sugars. Patient reported that on admission day, she began to have swelling of her lower extremities and abdomen with shortness of breath. She was also found to have uncontrolled blood sugars levels. She denied chest pain, palpitations, focal weakness, abdominal pain, productive cough, fever, chills. Patient on HD on Wednesday, Wednesday, and Saturdays. while in the ER patient underwent lab work significant for hemoglobin 8.9, sodium 115, potassium 6.3, bicarb 17, BUN 63, creatinine 4.5, glucose 1096, Phos 6.8, magnesium 1.8, ALT 94, alk phos 265, BNP 48,000, albumin 3.9. An EKG was also done, indicating sinus bradycardia with a rate of 59, normal axis, no ST-T changes, QTc 473 MS. In addition a chest x-ray was done showing cardiomegaly with increased interstitial lung markings. As inpatient, she was followed up by Nephorology. Patient was placed on an insulin drip for DKA management. She was later switched back to Insulin Lantus and humulog. Her insulin regimen was modified to optimize her diabetes management. Patient also experienced multiple episodes of hyperkalemia for which she was hemodylized appropriately. Patient was also reviewed by Psychiatry for her anxiety management for which her medications were modified and Mirtazipine was added. Her most recent labs prior to discharge showed glucose 112, K 5.4 (currently on HD, she will be discherged thereafter), WBC, 12.19. Hb, 8.9, Cr 3.71. On discharge she will be scheduled to be seen by her primary care physician for follow up. at time of discharge patient is hemodynamically stable and has returned to her baseline. Pt seen and examined at bedside: 05/17/2025 Vital signs reveiwed and stable: Temperature 98.6, heart rate 81, RR 16, BP 153/84, SpO2 100 on 2 L nasal cannula (at baseline) General: non toxic, no distress, appears at stated age, normal weight Derm: no unusual rashes/lesions, warm Head: atraumatic, normocephalic, symmetric Eyes: EOMI, no lid lag, anicteric sclera, pupils equal round reactive to light ENT: Nose and ears atraumatic Neck: No cervical lymphadenopathy, trachea midline, supple Mouth: no lip lesion, mucus membranes moist Cardiovascular: S1S2 reg, no murmur, positive dorsalis pedis pulse bilateral, no edema Lungs: normal air entry bilaterally, no rhonchi, no rales, no accessory muscle use Abdominal: soft, nontender to palpation, no guarding Ext: muscle strength 5 out of 5 in all 4 extremities grossly, no gross muscle atrophy, no contractures, Neuro: CN II-XI grossly intact, no gross focal neuro deficits Psych: Alert, oriented, appropriate affec A total of 30 minutes were spent preparing this complex discharge summary. Patient was discharged on 05/17/2025 Attestation I have seen and examined this patient with my resident , discussed the same with the resident/ANTHONY, and agree with the dictator's assessment and plan as written Dr. Getachew son Patient Condition at Discharge: Good Plan - Discharge Summary Discharge Rx Participant: No New Discharge Prescriptions: New Mirtazapine 30 mg PO DAILY 30 Days #30 tablet Continue Lidocaine 4% Patch 1 patch TOPICAL DAILY@0800 Ipratropium-Albuterol Nebulize [Duoneb 0.5 mg-3 mg/3 ml Soln] 3 ml INHALATION RT-TID PRN each PRN Reason: Shortness Of Breath Or Wheezing Biotene Dry Mouth/Throat 10 ml PO BID PRN PRN Reason: DRY MOUTH/THROAT Acetaminophen [Tylenol] 650 mg PO Q4H PRN PRN Reason: Pain Or Fever > 100.5 Loratadine [Claritin] 5 mg PO DAILY tab Sertraline [Zoloft] 200 mg PO DAILY@0800 Folic Acid/Vit B Complex and C [Davina-Mayte Tablet] 0.8 mg PO DAILY Isosorbide Mononitrate ER [Imdur] 120 mg PO DAILY #60 tab Gabapentin [Neurontin] 100 mg PO BID 30 Days #60 cap Linagliptin [Tradjenta] 5 mg PO DAILY #30 tab cloNIDine HCL [Catapres] 0.3 mg PO TID Insulin Lispro [humaLOG Kwikpen] See Protocol SQ AC-TID carvediloL [Coreg] 50 mg PO BID #120 tablet Lidocaine 5% Cream 1 applic TOPICAL MOTUWETHSA ALPRAZolam [Xanax] 0.25 mg PO BID PRN PRN Reason: Anxiety Bacitracin Zinc Oint 1 applic TOPICAL TID each NIFEdipine XL [Procardia XL] 90 mg PO Q12HR #60 tab Ondansetron Odt [Zofran ODT] 4 mg PO Q8HR PRN #10 tab PRN Reason: Nausea Docusate [Colace] 100 mg PO DAILY@0800 polyethylene glycoL 3350 [Miralax] 17 gm PO AC-LUNCH #527 gm Melatonin 1 mg PO HS tab Aspirin 81 mg PO DAILY@0800 #30 tab Famotidine [Pepcid] 20 mg PO BID #60 tab Levothyroxine Sodium [Synthroid] 175 mcg PO DAILY@0600 traZODone HCL [Desyrel] 50 mg PO HS #20 tab Ipratropium-Albuterol Nebulize [Duoneb 0.5 mg-3 mg/3 ml Soln] 3 ml INHALATION RT-TID #100 each Calcium Acetate [PhosLo] 1,334 mg PO TID-W/MEALS 30 Days #360 tab Divalproex Sodium [Depakote] 500 mg PO BID@0800,1700 Methoxy Peg-Epoetin Beta [Mircera] 100 mcg SQ Q14D Insulin Glargine (Lantus) [Lantus Vial] 11 unit SQ BID #0 oxyCODONE HCL/ACETAMINOPHEN [Percocet 10-325 mg] 1 tab PO DAILY PRN PRN Reason: Pain hydrOXYzine HCL [Atarax] 25 mg PO TID PRN #10 tab PRN Reason: Itching Sodium Zirconium Cyclosilicate [Lokelma] 10 gm PO DAILY #30 Pantoprazole [Protonix] 40 mg PO AC-BRKFST #30 tab Changed INSULIN LISPRO (HumaLOG) [HumaLOG] 8 unit SQ AC-TID #0 each Discharge Medication List Docusate [Colace] 100 mg PO DAILY@0800 02/05/24 [History] Lidocaine 4% Patch 1 patch TOPICAL DAILY@0800 02/05/24 [History] Ipratropium-Albuterol Nebulize [Duoneb 0.5 mg-3 mg/3 ml Soln] 3 ml INHALATION RT-TID PRN each 02/14/24 [Rx] polyethylene glycoL 3350 [Miralax] 17 gm PO AC-LUNCH #527 gm 02/14/24 [Rx] Acetaminophen [Tylenol] 650 mg PO Q4H PRN 02/18/24 [History] Biotene Dry Mouth/Throat 10 ml PO BID PRN 02/18/24 [History] Melatonin 1 mg PO HS tab 02/25/24 [Rx] Loratadine [Claritin] 5 mg PO DAILY tab 03/30/24 [Rx] Aspirin 81 mg PO DAILY@0800 #30 tab 05/18/24 [Rx] Famotidine [Pepcid] 20 mg PO BID #60 tab 07/11/24 [Rx] Levothyroxine Sodium [Synthroid] 175 mcg PO DAILY@0600 08/14/24 [History] Sertraline [Zoloft] 200 mg PO DAILY@0800 08/14/24 [History] Folic Acid/Vit B Complex and C [Davina-Mayte Tablet] 0.8 mg PO DAILY 12/20/24 [His tory] traZODone HCL [Desyrel] 50 mg PO HS #20 tab 01/01/25 [Rx] Isosorbide Mononitrate ER [Imdur] 120 mg PO DAILY #60 tab 01/02/25 [Rx] Gabapentin [Neurontin] 100 mg PO BID 30 Days #60 cap 01/03/25 [Rx] Linagliptin [Tradjenta] 5 mg PO DAILY #30 tab 01/03/25 [Rx] Insulin Lispro [humaLOG Kwikpen] See Protocol SQ AC-TID 01/22/25 [History] cloNIDine HCL [Catapres] 0.3 mg PO TID 01/22/25 [History] carvediloL [Coreg] 50 mg PO BID #120 tablet 02/15/25 [Rx] Calcium Acetate [PhosLo] 1,334 mg PO TID-W/MEALS 30 Days #360 tab 02/19/25 [Rx] Ipratropium-Albuterol Nebulize [Duoneb 0.5 mg-3 mg/3 ml Soln] 3 ml INHALATION RT-TID #100 each 02/19/25 [Rx] ALPRAZolam [Xanax] 0.25 mg PO BID PRN 02/26/25 [History] Divalproex Sodium [Depakote] 500 mg PO BID@0800,1700 02/26/25 [History] Lidocaine 5% Cream 1 applic TOPICAL MOTUWETHSA 02/26/25 [History] Methoxy Peg-Epoetin Beta [Mircera] 100 mcg SQ Q14D 02/26/25 [History] Insulin Glargine (Lantus) [Lantus Vial] 11 unit SQ BID #0 03/18/25 [Rx] oxyCODONE HCL/ACETAMINOPHEN [Percocet 10-325 mg] 1 tab PO DAILY PRN 04/16/25 [History] hydrOXYzine HCL [Atarax] 25 mg PO TID PRN #10 tab 04/24/25 [Rx] Sodium Zirconium Cyclosilicate [Lokelma] 10 gm PO DAILY #30 04/27/25 [Rx] Bacitracin Zinc Oint 1 applic TOPICAL TID each 05/07/25 [Rx] NIFEdipine XL [Procardia XL] 90 mg PO Q12HR #60 tab 05/07/25 [Rx] Ondansetron Odt [Zofran ODT] 4 mg PO Q8HR PRN #10 tab 05/07/25 [Rx] Pantoprazole [Protonix] 40 mg PO AC-BRKFST #30 tab 05/07/25 [Rx] INSULIN LISPRO (HumaLOG) [HumaLOG] 8 unit SQ AC-TID #0 each 05/17/25 [Rx] Mirtazapine 30 mg PO DAILY 30 Days #30 tablet 05/17/25 [Rx] Follow up Appointment(s)/Referral(s): Rush Marroquin MD [Primary Care Provider] - 1-2 days (Office unavailable at time of discharge.) [facility] [NON-STAFF] - Patient Instructions/Handouts: Diabetic Ketoacidosis (DC) Discharge Disposition: HOME SELF-CARE
[2025-05-17 15:54] LABS: African American GFR (CKD) 29 (>60 ml/min/1.73 sqM); Anion Gap 11 mmol/L; Blood Urea Nitrogen 15 mg/dL (7-17); Calcium 9.3 mg/dL (8.4-10.2); Carbon Dioxide 29 mmol/L (22-30); Chloride 97 mmol/L (98-107); Magnesium 1.8 mg/dL (1.6-2.3); Non-African American GFR(CKD) 25 (>60 ml/min/1.73 sqM); Potassium 4.2 mmol/L (3.5-5.1); Sodium 137 mmol/L (137-145)
[2025-05-17 15:58] LABS: Glucose 44 mg/dL (74-99)
== END 2025-05-17 15:41 | disposition home or self-care (01) | DRG 637 ==
LOC: EC 21:13 → 3SCARD 05-14 00:08
PROVIDERS: ADMIT Hospitalist; ATTEND Hospitalist
PROC: 5A1D70Z Performance of Urinary Filtration, Intermittent, Less than 6 Hours Per Day (ICD-10-PCS; principal; 2025-05-14)
DX: E11.10 Type 2 diabetes mellitus with ketoacidosis without coma (principal); I50.33 Acute on chronic diastolic (congestive) heart failure; N18.6 End stage renal disease; I13.2 Hypertensive heart and chronic kidney disease with heart failure and with stage 5 chronic kidney disease, or end stage renal disease; Z99.2 Dependence on renal dialysis; G40.909 Epilepsy, unspecified, not intractable, without status epilepticus; E11.22 Type 2 diabetes mellitus with diabetic chronic kidney disease; E03.9 Hypothyroidism, unspecified; I69.398 Other sequelae of cerebral infarction; F32.9 Major depressive disorder, single episode, unspecified; E87.1 Hypo-osmolality and hyponatremia; Z79.4 Long term (current) use of insulin; E11.319 Type 2 diabetes mellitus with unspecified diabetic retinopathy without macular edema; E87.5 Hyperkalemia; K21.9 Gastro-esophageal reflux disease without esophagitis; L29.9 Pruritus, unspecified; F41.0 Panic disorder [episodic paroxysmal anxiety]; H54.61 Unqualified visual loss, right eye, normal vision left eye; F41.1 Generalized anxiety disorder; F43.10 Post-traumatic stress disorder, unspecified; G47.00 Insomnia, unspecified; R00.1 Bradycardia, unspecified; Z79.890 Hormone replacement therapy; Z79.84 Long term (current) use of oral hypoglycemic drugs; Z79.82 Long term (current) use of aspirin; Z79.51 Long term (current) use of inhaled steroids; Z79.899 Other long term (current) drug therapy; Z87.891 Personal history of nicotine dependence; Z91.410 Personal history of adult physical and sexual abuse
CPT/HCPCS: 36415; 71045; 71046; 80048; 80051; 80053; 82565; 82803; 82947; 83036; 83605; 83735; 83880; 84100; 84132; 84484; 84520; 85025; 85610; 85730; 90935; 93005; 94640; 96365; 96366; 96375; 96376; 99291

== ENCOUNTER 2025-05-19 05:15 | Inpatient (IN) | payer MEDICARE ==
[2025-05-19] MEDS: NITROGLYCERIN OINT 1 INCH/GM PACKET TOPICAL STA (05:57)
[2025-05-19] MEDS: NITROGLYCERIN SL TABS 0.4 MG TAB SUBLINGUAL STA (05:57)
[2025-05-19] MEDS: MORPHINE SULFATE 4 MG/ML SYRINGE IV STA (06:00)
[2025-05-19] MEDS: FUROSEMIDE 10 MG/ML 10 ML VIAL IV STA (06:06)
[2025-05-19 06:27] LABS: Basophils # (A) 0.07 10*3/uL (0.00-0.10); Basophils % (A) 0.5 %; Eosinophils # (A) 1.69 10*3/uL (0.04-0.35); Eosinophils % (A) 12.8 %; HCT 25.6 % (37.2-46.3); HGB 8.7 g/dL (12.0-15.0); Lymphocytes # (A) 0.66 10*3/uL (0.90-5.00); Lymphocytes % (A) 5.0 %; MCH 33.9 pg (27.0-32.0); MCHC 34.0 g/dL (32.0-37.0); MCV 99.6 fL (80.0-97.0); Monocytes # (A) 0.50 10*3/uL (0.20-1.00); Monocytes % (A) 3.8 %; Neutrophils # (A) 10.25 10*3/uL (1.80-7.70); Neutrophils % (A) 77.4 %; Platelet Count 195 10*3/uL (140-440); RBC 2.57 10*6/uL (4.10-5.20); RDW 16.8 % (11.5-14.5); WBC 13.23 10*3/uL (4.50-10.00)
--- NOTE | 2025-05-19 06:43 | XR ---
EXAM: XR Chest, 1 View CLINICAL HISTORY: ITS.REASON XR Reason: dyspnea TECHNIQUE: Frontal view of the chest. COMPARISON: 05/15/2025. IMPRESSION: 1. Cardiomegaly with diffuse interstitial changes in the lungs. Findings can be seen with diffuse interstitial pulmonary edema. Associated with this are small [id number]-left pleural effusions. Findings may relate to sequela of volume overload from heart failure. This is worsened from prior study 05/15/2025.
[2025-05-19] MEDS: LORazepam 1 MG/0.5 ML VIAL IV STA (06:49)
[2025-05-19] MEDS: ONDANSETRON 4 MG/2 ML VIAL IVP STA (06:49)
--- NOTE | 2025-05-19 06:49 | ED ---
SOB HPI - General Chief Complaint: Shortness of Breath Stated Complaint: WAQAR Time Seen by Provider: 05/19/25 05:18 Source: EMS Mode of arrival: EMS - History of Present Illness Initial Comments: This patient is a 35-year-old woman with history of hypertension, diabetes, end-stage renal disease on hemodialysis, presenting with complaint of worsening of shortness of breath and bilateral leg edema which has been coming on over the past days. The patient states she has been taking her dialysis appointments. She has not noted fever or chills. No chest pain, productive cough, change in urination or bowel movements. MD Complaint: shortness of breath Onset/Timin -: days(s) Severity scale (1-10): 0 Consistency: constant Improves With: upright position Worsens With: lying flat Known History Of: congestive heart failure, diabetes Treatments Prior to Arrival: oxygen - Related Data Home Oxygen Therapy: No Home Medications Medication Instructions Recorded Confirmed Docusate [Colace] 100 mg PO DAILY@0800 02/05/24 05/27/25 Lidocaine 4% Patch 1 patch TOPICAL DAILY@0800 02/05/24 05/27/25 Acetaminophen [Tylenol] 650 mg PO Q4H PRN 02/18/24 05/27/25 Biotene Dry Mouth/Throat 10 ml PO BID PRN 02/18/24 05/27/25 Levothyroxine Sodium [Synthroid] 175 mcg PO DAILY@0600 08/14/24 05/27/25 Sertraline [Zoloft] 200 mg PO DAILY@0800 08/14/24 05/27/25 Folic Acid/Vit B Complex and C 0.8 mg PO DAILY 12/20/24 05/27/25 [Davina-Mayte Tablet] Insulin Lispro [humaLOG Kwikpen] See Protocol SQ AC-TID 01/22/25 05/27/25 cloNIDine HCL [Catapres] 0.3 mg PO TID 01/22/25 05/27/25 ALPRAZolam [Xanax] 0.25 mg PO BID PRN 02/26/25 05/27/25 Divalproex Sodium [Depakote] 500 mg PO BID@0800,1700 02/26/25 05/27/25 Lidocaine 5% Cream 1 applic TOPICAL MOTUWETHSA 02/26/25 05/27/25 Methoxy Peg-Epoetin Beta [Mircera] 100 mcg SQ Q14D 02/26/25 05/27/25 oxyCODONE HCL/ACETAMINOPHEN 1 tab PO DAILY PRN 04/16/25 05/27/25 [Percocet 10-325 mg] Mirtazapine 30 mg PO HS 05/19/25 05/27/25 Previous Rx's Medication Instructions Recorded Ipratropium-Albuterol Nebulize 3 ml INHALATION RT-TID PRN each 02/14/24 [Duoneb 0.5 mg-3 mg/3 ml Soln] polyethylene glycoL 3350 [Miralax] 17 gm PO AC-LUNCH #527 gm 02/14/24 Melatonin 1 mg PO HS tab 02/25/24 Loratadine [Claritin] 5 mg PO DAILY tab 03/30/24 Aspirin 81 mg PO DAILY@0800 #30 tab 05/18/24 Famotidine [Pepcid] 20 mg PO BID #60 tab 07/11/24 traZODone HCL [Desyrel] 50 mg PO HS #20 tab 01/01/25 Isosorbide Mononitrate ER [Imdur] 120 mg PO DAILY #60 tab 01/02/25 Gabapentin [Neurontin] 100 mg PO BID 30 Days #60 cap 01/03/25 Linagliptin [Tradjenta] 5 mg PO DAILY #30 tab 01/03/25 carvediloL [Coreg] 50 mg PO BID #120 tablet 02/15/25 Calcium Acetate [PhosLo] 1,334 mg PO TID-W/MEALS 30 Days 02/19/25 #360 tab Ipratropium-Albuterol Nebulize 3 ml INHALATION RT-TID #100 each 02/19/25 [Duoneb 0.5 mg-3 mg/3 ml Soln] Insulin Glargine (Lantus) [Lantus 11 unit SQ BID #0 03/18/25 Vial] hydrOXYzine HCL [Atarax] 25 mg PO TID PRN #10 tab 04/24/25 Sodium Zirconium Cyclosilicate 10 gm PO DAILY #30 04/27/25 [Lokelma] NIFEdipine XL [Procardia XL] 90 mg PO Q12HR #60 tab 05/07/25 Ondansetron Odt [Zofran ODT] 4 mg PO Q8HR PRN #10 tab 05/07/25 Pantoprazole [Protonix] 40 mg PO AC-BRKFST #30 tab 05/07/25 INSULIN LISPRO (HumaLOG) [HumaLOG] 8 unit SQ AC-TID #0 each 05/17/25 Allergies Allergy/AdvReac Type Severity Reaction Status Date / Time propoxyphene Allergy Rash/Hives Verified 05/27/25 15:36 [From Darvocet-N] tramadol Allergy Anaphylaxis Verified 05/27/25 15:36 ampicillin [From Unasyn] AdvReac Itching Verified 05/27/25 15:36 ibuprofen [From Motrin] AdvReac unable to Verified 05/27/25 15:36 take due to kidney disease sulbactam [From Unasyn] AdvReac Itching Verified 05/27/25 15:36 venom-honey bee AdvReac passes out Verified 05/27/25 15:36 [bee venom (honey bee)] Review of Systems ROS Statement: Those systems with pertinent positive or pertinent negative responses have been documented in the HPI. ROS Other: All systems not noted in ROS Statement are negative. Constitutional: Denies: fever, chills Respiratory: Reports: dyspnea. Denies: cough, wheezes, hemoptysis Cardiovascular: Reports: orthopnea, edema. Denies: chest pain, palpitations, syncope Gastrointestinal: Denies: abdominal pain, nausea, vomiting, diarrhea, c onstipation Musculoskeletal: Denies: back pain Skin: Denies: rash Neurological: Reports: headache. 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 Past Anesthesia/Blood Transfusion Reactions: Previous Problems w/ Anesthesia Additional Past Anesthesia/Blood Transfusion Reaction / Comment(s): confusion Past Psychological History: Anxiety, Depression Smoking Status: Former smoker Past Alcohol Use History: None Reported Past Drug Use History: Marijuana - Past Family History Father History Unknown: Yes Family Medical History: Unable to Obtain Mother History Unknown: Yes Family Medical History: No Reported History Grandfather History Unknown: Yes Family Medical History: Coronary Artery Disease (CAD) Additional Family Medical History / Comment(s): Diabetes mellitus type 2 General Exam General appearance: alert, in distress Head exam: Present: atraumatic, normocephalic Eye exam: Present: normal appearance. Absent: scleral icterus, conjunctival i njection Neck exam: Present: normal inspection Respiratory exam: Present: respiratory distress, wheezes, rales. Absent: normal lung sounds bilaterally, rhonchi, stridor, accessory muscle use Cardiovascular Exam: Present: regular rate, normal rhythm, systolic murmur, gallop. Absent: diastolic murmur, rubs GI/Abdominal exam: Present: soft. Absent: distended, tenderness, guarding, rebound, rigid, mass Extremities exam: Present: normal inspection, normal capillary refill, pedal edema Back exam: Present: normal inspection Neurological exam: Present: alert Skin exam: Present: warm, dry, intact, normal color. Absent: rash Course Vital Signs 05/19/25 05/19/25 05/19/25 05:19 06:23 06:52 Temperature 98.3 F Pulse Rate 98 78 78 Pulse Rate [ Right Supine Pulse Oximetery ] Respiratory 20 20 18 Rate Blood Pressure 205/110 195/104 169/92 Blood Pressure [Right Arm] O2 Sat by Pulse 94 L 99 99 Oximetry 05/19/25 05/19/25 05/19/25 08:54 12:08 12:18 Temperature 98.4 F Pulse Rate 74 78 80 Pulse Rate [ Right Supine Pulse Oximetery ] Respiratory 20 Rate Blood Pressure 180/90 Blood Pressure [Right Arm] O2 Sat by Pulse 95 96 Oximetry 05/19/25 05/19/25 05/19/25 12:37 14:12 18:22 Temperature 97.7 F Pulse Rate 78 82 75 Pulse Rate [ Right Supine Pulse Oximetery ] Respiratory 20 22 18 Rate Blood Pressure 201/110 189/116 175/95 Blood Pressure [Right Arm] O2 Sat by Pulse 93 L 96 98 Oximetry 05/19/25 05/19/25 05/19/25 19:08 20:25 21:30 Temperature 97.8 F Pulse Rate 70 70 Pulse Rate [ 72 Right Supine Pulse Oximetery ] Respiratory 20 20 18 Rate Blood Pressure 146/106 164/97 Blood Pressure 182/105 [Right Arm] O2 Sat by Pulse 98 98 100 Oximetry 05/19/25 05/20/25 05/20/25 22:30 02:24 05:21 Temperature 97.9 F Pulse Rate 70 75 89 Pulse Rate [ Right Supine Pulse Oximetery ] Respiratory 19 18 19 Rate Blood Pressure 153/77 184/111 187/95 Blood Pressure [Right Arm] O2 Sat by Pulse 100 99 Oximetry 05/20/25 05/20/25 05/20/25 06:00 08:01 08:16 Temperature Pulse Rate 82 81 82 Pulse Rate [ Right Supine Pulse Oximetery ] Respiratory 19 Rate Blood Pressure 160/82 Blood Pressure [Right Arm] O2 Sat by Pulse 99 98 Oximetry 05/20/25 05/20/25 05/20/25 08:32 09:48 11:12 Temperature Pulse Rate 86 83 77 Pulse Rate [ Right Supine Pulse Oximetery ] Respiratory 20 20 16 Rate Blood Pressure 140/78 150/92 151/88 Blood Pressure [Right Arm] O2 Sat by Pulse 96 96 99 Oximetry 05/20/25 05/20/25 05/20/25 12:30 13:15 14:00 Temperature Pulse Rate 78 74 71 Pulse Rate [ Right Supine Pulse Oximetery ] Respiratory 20 16 16 Rate Blood Pressure 138/84 140/80 148/82 Blood Pressure [Right Arm] O2 Sat by Pulse 99 97 97 Oximetry 05/20/25 05/20/25 05/20/25 15:05 16:05 16:12 Temperature 96.8 F L Pulse Rate 70 80 Pulse Rate [ 70 Right Supine Pulse Oximetery ] Respiratory 16 16 18 Rate Blood Pressure 126/78 122/79 Blood Pressure 145/83 [Right Arm] O2 Sat by Pulse 98 100 98 Oximetry 05/20/25 05/20/25 05/20/25 17:00 18:30 21:00 Temperature Pulse Rate 74 71 75 Pulse Rate [ Right Supine Pulse Oximetery ] Respiratory 16 18 18 Rate Blood Pressure 140/83 158/95 162/94 Blood Pressure [Right Arm] O2 Sat by Pulse 99 100 99 Oximetry 05/20/25 05/21/25 05/21/25 23:00 04:29 07:48 Temperature Pulse Rate 73 71 75 Pulse Rate [ Right Supine Pulse Oximetery ] Respiratory 16 16 18 Rate Blood Pressure 172/94 130/83 148/85 Blood Pressure [Right Arm] O2 Sat by Pulse 100 98 99 Oximetry 05/21/25 05/21/25 05/21/25 08:20 08:30 08:45 Temperature Pulse Rate 76 72 75 Pulse Rate [ Right Supine Pulse Oximetery ] Respiratory 18 Rate Blood Pressure 158/87 Blood Pressure [Right Arm] O2 Sat by Pulse 92 L 98 Oximetry 05/21/25 05/21/25 05/21/25 09:00 14:00 15:26 Temperature 98.1 F Pulse Rate 73 72 Pulse Rate [ 76 Right Supine Pulse Oximetery ] Respiratory 16 18 18 Rate Blood Pressure 160/90 196/101 Blood Pressure 189/94 [Right Arm] O2 Sat by Pulse 99 96 Oximetry Medical Decision Making - Medical Decision Making This patient is a 35-year-old woman with hypertension, diabetes, renal failure on hemodialysis, presenting with history and physical consistent with volume overload/CHF. The patient treated with nitrates, morphine, diuretic, BiPAP. Case discussed with admitting physician group and also with Dr. Andrade covering nephrology tonight Was pt. sent in by a medical professional or institution (, PA, FISHING GEAR MECHANIC, urgent care, hospital, or correction...) When possible be specific @ -[No] Did you speak to anyone other than the patient for history (EMS, parent, family, police, friend...)? What history was obtained from this source @ -[No] Did you review nursing and triage notes (agree or disagree)? Why? @ -[I reviewed and agree with nursing and triage notes] Were old charts reviewed (outside hosp., previous admission, EMS record, old EKG, old radiological studies, urgent care reports/EKG's, correction records)? Report findings @ -[Yes, old charts were reviewed] Differential Diagnosis (chest pain, altered mental status, abdominal pain women, abdominal pain men, vaginal bleeding, weakness, fever, dyspnea, syncope, headache, dizziness, GI bleed, back pain, seizure, CVA, palpatations, mental health, musculoskeletal)? @ -[Differential Dyspnea: Coronary syndrome, arrhythmia, tamponade, asthma, COPD, pulmonary embolism, pneumonia, pneumothorax, pulmonary effusion, anaphylaxis, diabetic ketoacidosis, flailed chest, pulmonary contusion, diaphragmatic rupture, anemia, neuromuscular, this is not meant to be an all-inclusive list. EKG interpreted by me (3pts min.). @ -[I interpreted as above] X-rays interpreted by me (1pt min.). @ -[I interpreted as above CT interpreted by me (1pt min.). @ -[None done] U/S interpreted by me (1pt. min.). @ -[None done] What testing was considered but not performed or refused? (CT, X-rays, U/S, labs)? Why? @ -[None] What meds were considered but not given or refused? Why? @ -[None] Did you discuss the management of the patient with other professionals (professionals i.e. , PA, FISHING GEAR MECHANIC, lab, RT, psych nurse, social director, firer electric locomotive, teacher, railway patrol officer, case assistant)? Give summary @ -[Case discussed with admitting physician, also with on-call nephrology to arrange dialysis, treatment recommendations Incorporated Was smoking cessation discussed for >3mins.? @ -[No] Was critical care preformed (if so, how long)? @ -[Yes, 40 minutes Were there social determinants of health that impacted care today? How? (Homelessness, low income, unemployed, alcoholism, drug addiction, transportation, low edu. Level, literacy, decrease access to med. care, [place] [facility], rehab)? @ -[No] Was there de-escalation of care discussed even if they declined (Discuss DNR or withdrawal of care, Hospice)? DNR status @ -[No] What co-morbidities impacted this encounter? (DM, HTN, Smoking, COPD, CAD, Cancer, CVA, ARF, Chemo, Hep., AIDS, mental health diagnosis, sleep apnea, morbid obesity)? @ -[Hypertension, diabetes, end-stage renal disease Was patient admitted / discharged? Hospital course, mention meds given and route, prescriptions, significant lab abnormalities, going to OR and other pertinent info. @ -[See above Undiagnosed new problem with uncertain prognosis? @ -[No] Drug Therapy requiring intensive monitoring for toxicity (Heparin, Nitro, Insulin, Cardizem)? @ -Nitroglycerin Were any procedures done? @ -[No] Diagnosis/symptom? @ -[End-stage renal disease, chronic Acute congestive heart failure/volume overload Acute respiratory failure due to above Hyperkalemia, acute Hyperglycemia, acute Anemia Acute, or Chronic, or Acute on Chronic? @ - Uncomplicated (without systemic symptoms) or Complicated (systemic symptoms)? @ -Complicated by dyspnea Side effects of treatment? @ -[No] Exacerbation, Progression, or Severe Exacerbation? @ -[No] Poses a threat to life or bodily function? How? (Chest pain, [place], [place], pneumonia, PE, COPD, DKA, ARF, appy, cholecystitis, CVA, Diverticulitis, Homicidal, Suicidal, threat to staff... and all critical care pts) @ -[Yes All treatments are based on ideal body weight as in ED triage - Lab Data Result diagrams: 05/21/25 06:00 05/21/25 06:00 Lab Results 05/19/25 05/19/25 05/19/25 Range/Units 05:56 05:56 05:56 WBC 13.23 H (4.50-10.00) 10*3/uL RBC 2.57 L (4.10-5.20) 10*6/uL Hgb 8.7 L (12.0-15.0) g/dL Hct 25.6 L (37.2-46.3) % MCV 99.6 H (80.0-97.0) fL MCH 33.9 H (27.0-32.0) pg MCHC 34.0 (32.0-37.0) g/dL Plt Count 195 (140-440) 10*3/uL MPV 11.3 (9.5-12.2) fL Immature Gran % (Auto) 0.5 % Neutrophils % 77.4 % Lymphocytes % 5.0 % Monocytes % 3.8 % Eosinophils % 12.8 % Basophils % 0.5 % Immature Gran # 0.06 H (0.00-0.04) 10*3/uL Neutrophils # 10.25 H (1.80-7.70) 10*3/uL Lymphocytes # 0.66 L (0.90-5.00) 10*3/uL Monocytes # 0.50 (0.20-1.00) 10*3/uL Eosinophils # 1.69 H (0.04-0.35) 10*3/uL Basophils # 0.07 (0.00-0.10) 10*3/uL PT 11.6 (10.0-12.5) sec INR 1.1 (<1.2) APTT 23.4 (22.0-30.0) sec Troponin I 0.028 (0.000-0.034) ng/mL - EKG Data -: EKG Interpreted by Me EKG shows normal: sinus rhythm, axis (Normal), intervals (Normal), QRS complexes (Normal) Rate: tachycardia (Rate 100 bpm) Disposition Clinical Impression: ESRD (end stage renal disease), Pulmonary edema, Hypertension Disposition: ADMITTED IP TO THIS HOSP Condition: Fair Is patient prescribed a controlled substance at d/c from ED?: No
[2025-05-19 06:57] LABS: INR 1.1 (<1.2); Partial Thromboplastin Time 23.4 sec (22.0-30.0); Prothrombin Time 11.6 sec (10.0-12.5)
[2025-05-19 07:43] LABS: ALT 48 U/L (4-34); AST 33 U/L (14-36); African American GFR (CKD) 12 (>60 ml/min/1.73 sqM); Albumin 3.5 g/dL (3.5-5.0); Alkaline Phosphatase 192 U/L (38-126); Anion Gap 8 mmol/L; Blood Urea Nitrogen 43 mg/dL (7-17); Calcium 8.8 mg/dL (8.4-10.2); Carbon Dioxide 27 mmol/L (22-30); Chloride 96 mmol/L (98-107); Glucose 413 mg/dL (74-99); Non-African American GFR(CKD) 10 (>60 ml/min/1.73 sqM); Sodium 131 mmol/L (137-145); Total Protein 5.7 g/dL (6.3-8.2)
[2025-05-19 07:48] LABS: Potassium 6.8 mmol/L (3.5-5.1)
[2025-05-19 08:16] LABS: NT-Pro-B-Type Natriuretic Pept 62900 pg/mL
--- NOTE | 2025-05-19 10:18 | P.NPCON ---
History of Present Illness - Reason for Consult end stage renal disease - History of Present Illness Reason for consultation: End-stage renal disease History of present illness: Patient is a 35-year-old female seen in renal consultation for end-stage renal disease. She was seen and examined in the emergency room. Patient came to the hospital due to shortness of breath. She also complains of worsening swelling in her lower extremities. She denies missing any dialysis treatments. She is scheduled for dialysis today. Denies fever or chills. She was recently admitted for DKA. Blood glucose on admission was 413 and potassium was 6.8. Patient has longstanding history of diabetes. Denies history of coronary artery disease. Patient is anuric. Vital signs are stable. General: No acute distress. HEENT: Head exam is unremarkable. LUNGS: No audible rhonchi or wheezes. HEART: Rate and Rhythm are regular. ABDOMEN: Nontender. EXTREMITITES: 2+ edema. 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 Past Anesthesia/Blood Transfusion Reactions: Previous Problems w/ Anesthesia Additional Past Anesthesia/Blood Transfusion Reaction / Comment(s): confusion Past Psychological History: Anxiety, Depression Smoking Status: Former smoker Past Alcohol Use History: None Reported Past Drug Use History: Marijuana - Past Family History Father History Unknown: Yes Family Medical History: Unable to Obtain Mother History Unknown: Yes Family Medical History: No Reported History Grandfather History Unknown: Yes Family Medical History: Coronary Artery Disease (CAD) Additional Family Medical History / Comment(s): Diabetes mellitus type 2 Medications and Allergies Home Medications Medication Instructions Recorded Confirmed Type Docusate [Colace] 100 mg PO DAILY@0800 02/05/24 05/14/25 History Lidocaine 4% Patch 1 patch TOPICAL DAILY@0800 02/05/24 05/14/25 History Ipratropium-Albuterol Nebulize 3 ml INHALATION RT-TID PRN each 02/14/24 05/14/25 Rx [Duoneb 0.5 mg-3 mg/3 ml Soln] polyethylene glycoL 3350 [Miralax] 17 gm PO AC-LUNCH #527 gm 02/14/24 05/14/25 Rx Acetaminophen [Tylenol] 650 mg PO Q4H PRN 02/18/24 05/14/25 History Biotene Dry Mouth/Throat 10 ml PO BID PRN 02/18/24 05/14/25 History Melatonin 1 mg PO HS tab 02/25/24 05/14/25 Rx Loratadine [Claritin] 5 mg PO DAILY tab 03/30/24 05/14/25 Rx Aspirin 81 mg PO DAILY@0800 #30 tab 05/18/24 05/14/25 Rx Famotidine [Pepcid] 20 mg PO BID #60 tab 07/11/24 05/14/25 Rx Levothyroxine Sodium [Synthroid] 175 mcg PO DAILY@0600 08/14/24 05/14/25 History Sertraline [Zoloft] 200 mg PO DAILY@0800 08/14/24 05/14/25 History Folic Acid/Vit B Complex and C 0.8 mg PO DAILY 12/20/24 05/14/25 History [Davina-Mayte Tablet] traZODone HCL [Desyrel] 50 mg PO HS #20 tab 01/01/25 05/14/25 Rx Isosorbide Mononitrate ER [Imdur] 120 mg PO DAILY #60 tab 01/02/25 05/14/25 Rx Gabapentin [Neurontin] 100 mg PO BID 30 Days #60 cap 01/03/25 05/14/25 Rx Linagliptin [Tradjenta] 5 mg PO DAILY #30 tab 01/03/25 05/14/25 Rx Insulin Lispro [humaLOG Kwikpen] See Protocol SQ AC-TID 01/22/25 05/14/25 History cloNIDine HCL [Catapres] 0.3 mg PO TID 01/22/25 05/14/25 History carvediloL [Coreg] 50 mg PO BID #120 tablet 02/15/25 05/14/25 Rx Calcium Acetate [PhosLo] 1,334 mg PO TID-W/MEALS 30 Days 02/19/25 05/14/25 Rx #360 tab Ipratropium-Albuterol Nebulize 3 ml INHALATION RT-TID #100 each 02/19/25 05/14/25 Rx [Duoneb 0.5 mg-3 mg/3 ml Soln] ALPRAZolam [Xanax] 0.25 mg PO BID PRN 02/26/25 05/14/25 History Divalproex Sodium [Depakote] 500 mg PO BID@0800,1700 02/26/25 05/14/25 History Lidocaine 5% Cream 1 applic TOPICAL MOTUWETHSA 02/26/25 05/14/25 History Methoxy Peg-Epoetin Beta [Mircera] 100 mcg SQ Q14D 02/26/25 05/14/25 History Insulin Glargine (Lantus) [Lantus 11 unit SQ BID #0 03/18/25 05/14/25 Rx Vial] oxyCODONE HCL/ACETAMINOPHEN 1 tab PO DAILY PRN 04/16/25 05/14/25 History [Percocet 10-325 mg] hydrOXYzine HCL [Atarax] 25 mg PO TID PRN #10 tab 04/24/25 05/14/25 Rx Sodium Zirconium Cyclosilicate 10 gm PO DAILY #30 04/27/25 05/14/25 Rx [Lokelma] Bacitracin Zinc Oint 1 applic TOPICAL TID each 05/07/25 05/14/25 Rx NIFEdipine XL [Procardia XL] 90 mg PO Q12HR #60 tab 05/07/25 05/14/25 Rx Ondansetron Odt [Zofran ODT] 4 mg PO Q8HR PRN #10 tab 05/07/25 05/14/25 Rx Pantoprazole [Protonix] 40 mg PO AC-BRKFST #30 tab 05/07/25 05/14/25 Rx INSULIN LISPRO (HumaLOG) [HumaLOG] 8 unit SQ AC-TID #0 each 05/17/25 05/14/25 Rx Mirtazapine 30 mg PO DAILY 30 Days #30 tablet 05/17/25 Rx Allergies Allergy/AdvReac Type Severity Reaction Status Date / Time propoxyphene Allergy Rash/Hives Verified 05/14/25 09:13 [From Darvocet-N] tramadol Allergy Anaphylaxis Verified 05/14/25 09:13 ampicillin [From Unasyn] AdvReac Itching Verified 05/14/25 09:13 ibuprofen [From Motrin] AdvReac unable to Verified 05/14/25 09:13 take due to kidney disease sulbactam [From Unasyn] AdvReac Itching Verified 05/14/25 09:13 venom-honey bee AdvReac passes out Verified 05/14/25 09:13 [bee venom (honey bee)] Physical Exam Vitals: Vital Signs Temp Pulse Resp BP Pulse Ox 05/19/25 08:54 98.4 F 74 20 180/90 95 05/19/25 06:52 78 18 169/92 99 05/19/25 06:23 78 20 195/104 99 05/19/25 05:19 98.3 F 98 20 205/110 94 L Intake and Output 05/18/25 05/19/25 05/19/25 22:59 06:59 14:59 Other: Weight 68.039 kg Results - Lab Results Most recent lab results Calcium 8.8 mg/dL (8.4-10.2) 05/19/25 06:48 05/19/25 05:56 05/19/25 06:48 Assessment and Plan Plan: Assessment: 1. End-stage renal disease maintained on hemodialysis on Wednesday schedule. 2. Hyperkalemia secondary to chronic kidney disease. Also component of hyperglycemia. 3. Hyponatremia, hypervolemic. 4. Acute hypoxic respiratory failure. 5. Volume overload. 6. Diabetes mellitus with hyperglycemia. 7. Hypertensive emergency secondary to volume overload. 8. Anemia of chronic kidney disease. 9. Chronic kidney disease mineral bone disease. Plan: Hemodialysis today with goal 4 to 5 L ultrafiltration. Resume home antihypertensives. Resume Lokelma 10 g twice daily. Low-salt diet and 1200 cc fluid restriction. Check iron studies. Add Aranesp. 1 g IV calcium gluconate, 10 units IV insulin with an amp of D50 now. Tight blood glucose control. Thank you for the consultation. I will continue to follow the patient with you during her hospital stay.
[2025-05-19] MEDS ORDERED: IPRATROPIUM-ALBUTEROL 3 ML NEB INHALATION PRN (11:11)
[2025-05-19] MEDS ORDERED: ACETAMINOPHEN TAB 325 MG TAB PO PRN (11:11)
--- NOTE | 2025-05-19 11:20 | P.HPIM ---
History of Present Illness Patient is a 85-year-old female came in with complaints of shortness of breath found to have pulm edema. Patient does have a history of end-stage renal disease hemodialysis dependent. Patient states she did not miss any hemodialysis sessions patient regular hemodialysis sessions of Wednesday. Patient is also found to have hyperkalemia patient is supposed to take Lokelma at home as well. Patient hyperkalemia secondary to renal failure patient received calcium gluconate, insulin, Lokelma as well. Patient does have history of type 2 diabetes mellitus. Patient is complaining of pain everywhere. REVIEW OF SYSTEMS: All other systems are negative except those mentioned in the HPI PHYSICAL EXAMINATION: GENERAL: The patient is alert and oriented x3, not in any acute distress. Well developed, well nourished. HEENT: Pupils are round and equally reacting to light. EOMI. No scleral icterus. No conjunctival pallor. Normocephalic, atraumatic. No pharyngeal erythema. No thyromegaly. CARDIOVASCULAR: S1 and S2 present. No murmurs, rubs, or gallops. PULMONARY: Chest is clear to auscultation, no wheezing or crackles. ABDOMEN: Soft, nontender, nondistended, normoactive bowel sounds. No palpable organomegaly. MUSCULOSKELETAL: No joint swelling or deformity. EXTREMITIES: No cyanosis, clubbing, or pedal edema. NEUROLOGICAL: Gross neurological examination did not reveal any focal deficits. SKIN: No rashes. Assessment and plan -Shortness of breath secondary to pulmonary edema patient is end-stage renal disease hemodialysis dependent. Patient undergo hemodialysis today. 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 - Gastroesophageal reflux disease - Seizure disorder - Hypothyroidism - Depression For above-mentioned chronic medical problems patient was resumed on appropriate home medications DVT prophylaxis:subcutaneous heparin Past Medical History Past Medical History: Diabetes Mellitus, GERD/Reflux, Hypertension, Renal Disea se, Seizure Disorder, Thyroid Disorder Additional Past Medical History / Comment(s): Neuropathy, last seizure 2020, gastroparesis, headaches with dialysis, states "fast heart rate" since giving ., receives Hemodialysis Wednesday- and Saturdays at [facility] right chest hemodialysis catheter., severe HTN, hx of c-diff 2013., 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 Past Anesthesia/Blood Transfusion Reactions: Previous Problems w/ Anesthesia Additional Past Anesthesia/Blood Transfusion Reaction / Comment(s): confusion Past Psychological History: Anxiety, Depression Smoking Status: Former smoker Past Alcohol Use History: None Reported Past Drug Use History: Marijuana - Past Family History Father History Unknown: Yes Family Medical History: Unable to Obtain Mother History Unknown: Yes Family Medical History: No Reported History Grandfather History Unknown: Yes Family Medical History: Coronary Artery Disease (CAD) Additional Family Medical History / Comment(s): Diabetes mellitus type 2 Medications and Allergies Home Medications Medication Instructions Recorded Confirmed Type Docusate [Colace] 100 mg PO DAILY@79902/05/24 05/19/25 History Lidocaine 4% Patch 1 patch TOPICAL DAILY@79902/05/24 05/19/25 History Ipratropium-Albuterol Nebulize 3 ml INHALATION RT-TID PRN each 02/14/24 05/19/25 Rx [Duoneb 0.5 mg-3 mg/3 ml Soln] polyethylene glycoL 3350 [Miralax] 17 gm PO AC-LUNCH #527 gm 02/14/24 05/19/25 Rx Acetaminophen [Tylenol] 650 mg PO Q4H PRN 02/18/24 05/19/25 History Biotene Dry Mouth/Throat 10 ml PO BID PRN 02/18/24 05/19/25 History Melatonin 1 mg PO HS tab 02/25/24 05/19/25 Rx Loratadine [Claritin] 5 mg PO DAILY tab 03/30/24 05/19/25 Rx Aspirin 81 mg PO DAILY@0800 #30 tab 05/18/24 05/19/25 Rx Famotidine [Pepcid] 20 mg PO BID #60 tab 07/11/24 05/19/25 Rx Levothyroxine Sodium [Synthroid] 175 mcg PO DAILY@0600 08/14/24 05/19/25 History Sertraline [Zoloft] 200 mg PO DAILY@0800 08/14/24 05/19/25 History Folic Acid/Vit B Complex and C 0.8 mg PO DAILY 12/20/24 05/19/25 History [Davina-Mayte Tablet] traZODone HCL [Desyrel] 50 mg PO HS #20 tab 01/01/25 05/19/25 Rx Isosorbide Mononitrate ER [Imdur] 120 mg PO DAILY #60 tab 01/02/25 05/19/25 Rx Gabapentin [Neurontin] 100 mg PO BID 30 Days #60 cap 01/03/25 05/19/25 Rx Linagliptin [Tradjenta] 5 mg PO DAILY #30 tab 01/03/25 05/19/25 Rx Insulin Lispro [humaLOG Kwikpen] See Protocol SQ AC-TID 01/22/25 05/19/25 History cloNIDine HCL [Catapres] 0.3 mg PO TID 01/22/25 05/19/25 History carvediloL [Coreg] 50 mg PO BID #120 tablet 02/15/25 05/19/25 Rx Calcium Acetate [PhosLo] 1,334 mg PO TID-W/MEALS 30 Days 02/19/25 05/19/25 Rx #360 tab Ipratropium-Albuterol Nebulize 3 ml INHALATION RT-TID #100 each 02/19/25 05/19/25 Rx [Duoneb 0.5 mg-3 mg/3 ml Soln] ALPRAZolam [Xanax] 0.25 mg PO BID PRN 02/26/25 05/19/25 History Divalproex Sodium [Depakote] 500 mg PO BID@0800,1700 02/26/25 05/19/25 History Lidocaine 5% Cream 1 applic TOPICAL MOTUWETHSA 02/26/25 05/19/25 History Methoxy Peg-Epoetin Beta [Mircera] 100 mcg SQ Q14D 02/26/25 05/19/25 History Insulin Glargine (Lantus) [Lantus 11 unit SQ BID #0 03/18/25 05/19/25 Rx Vial] oxyCODONE HCL/ACETAMINOPHEN 1 tab PO DAILY PRN 04/16/25 05/19/25 History [Percocet 10-325 mg] hydrOXYzine HCL [Atarax] 25 mg PO TID PRN #10 tab 04/24/25 05/19/25 Rx Sodium Zirconium Cyclosilicate 10 gm PO DAILY #30 04/27/25 05/19/25 Rx [Lokelma] Bacitracin Zinc Oint 1 applic TOPICAL TID each 05/07/25 05/19/25 Rx NIFEdipine XL [Procardia XL] 90 mg PO Q12HR #60 tab 05/07/25 05/19/25 Rx Ondansetron Odt [Zofran ODT] 4 mg PO Q8HR PRN #10 tab 05/07/25 05/19/25 Rx Pantoprazole [Protonix] 40 mg PO AC-BRKFST #30 tab 05/07/25 05/19/25 Rx INSULIN LISPRO (HumaLOG) [HumaLOG] 8 unit SQ AC-TID #0 each 05/17/25 05/19/25 Rx Mirtazapine 30 mg PO DAILY 30 Days #30 tablet 05/17/25 05/19/25 Rx Mirtazapine 30 mg PO HS 05/19/25 05/19/25 History Allergies Allergy/AdvReac Type Severity Reaction Status Date / Time propoxyphene Allergy Rash/Hives Verified 05/19/25 10:58 [From Darvocet-N] tramadol Allergy Anaphylaxis Verified 05/19/25 10:58 ampicillin [From Unasyn] AdvReac Itching Verified 05/19/25 10:58 ibuprofen [From Motrin] AdvReac unable to Verified 05/19/25 10:58 take due to kidney disease sulbactam [From Unasyn] AdvReac Itching Verified 05/19/25 10:58 venom-honey bee AdvReac passes out Verified 05/19/25 10:58 [bee venom (honey bee)] Physical Exam Vitals: Vital Signs Temp Pulse Resp BP Pulse Ox 05/19/25 08:54 98.4 F 74 20 180/90 95 05/19/25 06:52 78 18 169/92 99 05/19/25 06:23 78 20 195/104 99 05/19/25 05:19 98.3 F 98 20 205/110 94 L Intake and Output 05/18/25 05/19/25 05/19/25 22:59 06:59 14:59 Other: Weight 68.039 kg Results CBC & Chem 7: 05/19/25 05:56 05/19/25 06:48 Labs: Abnormal Lab Results - Last 24 Hours (Table) 05/19/25 05/19/25 Range/Units 05:56 06:48 WBC 13.23 H (4.50-10.00) 10*3/uL RBC 2.57 L (4.10-5.20) 10*6/uL Hgb 8.7 L (12.0-15.0) g/dL Hct 25.6 L (37.2-46.3) % MCV 99.6 H (80.0-97.0) fL MCH 33.9 H (27.0-32.0) pg Immature Gran # 0.06 H (0.00-0.04) 10*3/uL Neutrophils # 10.25 H (1.80-7.70) 10*3/uL Lymphocytes # 0.66 L (0.90-5.00) 10*3/uL Eosinophils # 1.69 H (0.04-0.35) 10*3/uL Sodium 131 L (137-145) mmol/L Potassium 6.8 H* (3.5-5.1) mmol/L Chloride 96 L (98-107) mmol/L BUN 43 H (7-17) mg/dL Creatinine 5.14 H (0.52-1.04) mg/dL Glucose 413 H (74-99) mg/dL ALT 48 H (4-34) U/L Alkaline Phosphatase 192 H (38-126) U/L Total Protein 5.7 L (6.3-8.2) g/dL
[2025-05-19] MEDS: IPRATROPIUM-ALBUTEROL 3 ML NEB INHALATION SCH (12:07)
[2025-05-19 12:08] LABS: Glucose,Whole Blood 558 mg/dL (70-110)
[2025-05-19] MEDS: CALCIUM GLUCONATE IN NACL 1 GM in SALINE 1 100ML.BAG IVPB ONE (12:14)
[2025-05-19] MEDS: CALCIUM ACETATE 667 MG TAB PO SCH (12:14)
[2025-05-19] MEDS: DEXTROSE 50% SYRINGE 50 ML IVP STA (12:14)
[2025-05-19] MEDS: FAMOTIDINE 20 MG TAB PO SCH (12:15)
[2025-05-19] MEDS: oxyCODONE-APAP 10-325MG 1 EACH TAB PO PRN ×2 (12:16→18:17)
[2025-05-19] MEDS: INSULIN REGULAR 100 UNIT/ML VIAL (IV) IV ONE (12:17)
[2025-05-19] MEDS: ONDANSETRON ODT 4 MG TAB PO PRN (12:44)
[2025-05-19] MEDS: INSULIN LISPRO (HumaLOG) 100 UNIT/ML 10 mL VL SQ SCH ×2 (12:44→16:13)
[2025-05-19] MEDS: ALPRAZolam 0.25 MG TAB PO PRN (12:59)
[2025-05-19] MEDS: LIDOCAINE 4% CREAM 5 GM TUBE TOPICAL PRN (14:17)
[2025-05-19] MEDS: DARBEPOETIN ALFA 40 MCG/0.4 ML SYRINGE SQ SCH (14:17)
[2025-05-19 15:07] LABS: Ferritin 461.0 ng/mL (10.0-291.0); Iron 51.0 UG/DL (50-170); Total Iron Binding Capacity 266.0 UG/DL (228-460)
[2025-05-19 15:58] LABS: Glucose,Whole Blood 215 mg/dL (70-110)
[2025-05-19 17:54] LABS: Glucose,Whole Blood 130 mg/dL (70-110)
[2025-05-19] MEDS: DIVALPROEX 500 MG TABLET.DR PO SCH (18:17)
[2025-05-19] MEDS: HEPARIN SODIUM,PORCINE 5,000 UNIT/ML 1 ML VIAL SQ SCH (18:21)
[2025-05-19 20:17] LABS: Glucose,Whole Blood 36 mg/dL (70-110)
[2025-05-19 20:17] LABS: Glucose,Whole Blood 30 mg/dL (70-110)
[2025-05-19] MEDS: INSULIN GLARGINE (LANTUS) 100 UNIT/ML SYR SQ SCH (20:24)
[2025-05-19] MEDS ORDERED: DEXTROSE 50% SYRINGE 50 ML IVP PRN (20:48)
[2025-05-19] MEDS: DEXTROSE 50% SYRINGE 50 ML IVP PRN (20:54)
[2025-05-19 20:58] LABS: Glucose,Whole Blood 102 mg/dL (70-110)
[2025-05-19] MEDS: GABAPENTIN 100 MG CAP PO SCH (21:21)
[2025-05-19] MEDS: MIRTAZAPINE 15 MG TAB PO SCH (21:21)
[2025-05-19] MEDS: SODIUM ZIRCONIUM CYCLOSILICATE 10 GM PACKET PO SCH (21:22)
[2025-05-20 05:20] LABS: Glucose,Whole Blood 473 mg/dL (70-110)
[2025-05-20] MEDS: LEVOTHYROXINE 88 MCG TAB PO SCH (06:25)
[2025-05-20 07:52] LABS: Glucose,Whole Blood 545 mg/dL (70-110)
[2025-05-20] MEDS: SERTRALINE 100 MG TAB PO SCH (08:17)
[2025-05-20] MEDS: MIRTAZAPINE 15 MG TAB PO SCH (08:18)
[2025-05-20] MEDS: ASPIRIN 81 MG PO SCH (08:18)
[2025-05-20] MEDS: DOCUSATE 100 MG CAP PO SCH (08:18)
[2025-05-20] MEDS: FOLIC ACID-VIT B COMPLEX-VIT C 1 CAP PO SCH (08:19)
[2025-05-20] MEDS: LINAGLIPTIN 5 MG TABLET PO SCH (08:19)
[2025-05-20] MEDS: FAMOTIDINE 20 MG TAB PO SCH (08:19)
[2025-05-20] MEDS: ISOSORBIDE MONONITRATE ER 60 MG TAB.ER.24H PO SCH (08:20)
[2025-05-20] MEDS: PANTOPRAZOLE 40 MG TABLET PO SCH (08:21)
[2025-05-20] MEDS: LIDOCAINE 4% PATCH TOPICAL SCH (08:22)
[2025-05-20] MEDS ORDERED: SODIUM ZIRCONIUM CYCLOSILICATE 10 GM PACKET PO SCH (09:00)
[2025-05-20 09:37] LABS: Glucose,Whole Blood 545 mg/dL (70-110)
[2025-05-20 09:37] LABS: Glucose,Whole Blood 534 mg/dL (70-110)
--- NOTE | 2025-05-20 10:31 | P.PN ---
Subjective Patient is seen in follow-up for end-stage renal disease. No problems with dialysis yesterday. Potassium 6 this morning with blood glucose of 545. Vital signs are stable. General: No acute distress. HEENT: Head exam is unremarkable. LUNGS: No audible rhonchi or wheezes. HEART: Rate and Rhythm are regular. ABDOMEN: Nontender. EXTREMITITES: 1+ edema. Objective - Vital Signs Vital signs: Vital Signs Temp 97.9 F 05/20/25 02:24 Pulse 83 05/20/25 09:48 Resp 20 05/20/25 09:48 BP 150/92 05/20/25 09:48 Pulse Ox 96 05/20/25 09:48 FiO2 Intake & Output 05/19/25 05/20/25 05/20/25 18:59 06:59 18:59 Intake Total 500 Output Total 18677 Balance -95955 Intake: Hemodialysis 500 Output: Hemodialysis 5500 Hemodialysis Net Amount 5000 - Labs CBC & Chem 7: 05/19/25 05:56 05/20/25 07:50 Labs: Abnormal Lab Results - Last 24 Hours (Table) 05/19/25 05/19/25 05/19/25 Range/Units 06:48 12:05 12:42 Potassium 6.6 H* (3.5-5.1) mmol/L POC Glucose (mg/dL) 558 H* (70-110) mg/dL Transferrin 190.0 L (204.0-354.0) mg/dL Ferritin 461.0 H (10.0-291.0) ng/mL 05/19/25 05/19/25 05/19/25 Range/Units 15:55 17:52 20:14 Potassium (3.5-5.1) mmol/L POC Glucose (mg/dL) 215 H 130 H 36 L* (70-110) mg/dL Transferrin (204.0-354.0) mg/dL Ferritin (10.0-291.0) ng/mL 05/19/25 05/20/25 05/20/25 Range/Units 20:15 05:18 07:50 Potassium 6.0 H (3.5-5.1) mmol/L POC Glucose (mg/dL) 30 L* 473 H (70-110) mg/dL Transferrin (204.0-354.0) mg/dL Ferritin (10.0-291.0) ng/mL 05/20/25 05/20/25 05/20/25 Range/Units 07:51 09:33 09:34 Potassium (3.5-5.1) mmol/L POC Glucose (mg/dL) 545 H* 534 H* 545 H* (70-110) mg/dL Transferrin (204.0-354.0) mg/dL Ferritin (10.0-291.0) ng/mL Assessment and Plan Plan: Assessment: 1. End-stage renal disease maintained on hemodialysis on Wednesday schedule. 2. Hyperkalemia secondary to chronic kidney disease. Also component of hyperglycemia. 3. Hyponatremia, hypervolemic. 4. Acute hypoxic respiratory failure. 5. Volume overload. 6. Diabetes mellitus with hyperglycemia. 7. Hypertensive emergency secondary to volume overload. 8. Anemia of chronic kidney disease. Iron deficiency noted. On Aranesp. 9. Chronic kidney disease mineral bone disease. Plan: Short hemodialysis treatment today. Another treatment tomorrow. Maintain Lokelma. Low-salt diet and 1200 cc fluid restriction. Add IV iron. Tight blood glucose control.
[2025-05-20] MEDS: SODIUM FERRIC GLUCONAT-SUCROSE 125 MG in SODIUM CHLORIDE 0.9% 100 ML IVPB SCH (11:40)
[2025-05-20 12:17] LABS: Glucose,Whole Blood 213 mg/dL (70-110)
--- NOTE | 2025-05-20 12:35 | P.PN ---
Subjective Patient is a 85-year-old female came in with complaints of shortness of breath found to have pulm edema. Patient does have a history of end-stage renal disease hemodialysis dependent. Patient states she did not miss any hemodialysis sessions patient regular hemodialysis sessions of Wednesday. Patient is also found to have hyperkalemia patient is supposed to take Lokelma at home as well. Patient hyperkalemia secondary to renal failure patient received calcium gluconate, insulin, Lokelma as well. Patient does have history of type 2 diabetes mellitus. Patient is complaining of pain everywhere. 05/20/2023 Patient pulm edema improved clinically but patient is still requiring 40 mL of oxygen. Patient is still hyperkalemic. Patient will undergo hemodialysis today again and will also receive Lokelma. Patient will require hemodialysis again tomorrow. The target for removal of fluid today is around 1200. Patient is still complaining of diffuse pain everywhere patient is drowsy because of the opioids she is receiving. REVIEW OF SYSTEMS: All other systems are negative except those mentioned in the HPI PHYSICAL EXAMINATION: GENERAL: The patient is alert and oriented x3, not in any acute distress. Well developed, well nourished. HEENT: Pupils are round and equally reacting to light. EOMI. No scleral icterus. No conjunctival pallor. Normocephalic, atraumatic. No pharyngeal erythema. No thyromegaly. CARDIOVASCULAR: S1 and S2 present. No murmurs, rubs, or gallops. PULMONARY: Chest is clear to auscultation, no wheezing or crackles. ABDOMEN: Soft, nontender, nondistended, normoactive bowel sounds. No palpable organomegaly. MUSCULOSKELETAL: No joint swelling or deformity. EXTREMITIES: No cyanosis, clubbing, or pedal edema. NEUROLOGICAL: Gross neurological examination did not reveal any focal deficits. SKIN: No rashes. Assessment and plan -Shortness of breath secondary to pulmonary edema patient is end-stage renal disease hemodialysis dependent. Patient undergo hemodialysis today. 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 - Gastroesophageal reflux disease - Seizure disorder - Hypothyroidism - Depression For above-mentioned chronic medical problems patient was resumed on appropriate home medications DVT prophylaxis:subcutaneous heparin Objective - Vital Signs Vital signs: Vital Signs Temp 97.9 F 05/20/25 02:24 Pulse 78 05/20/25 12:30 Resp 20 05/20/25 12:30 BP 138/84 05/20/25 12:30 Pulse Ox 99 05/20/25 12:30 FiO2 Intake & Output 05/19/25 05/20/25 05/20/25 18:59 06:59 18:59 Intake Total 500 Output Total 39269 Balance -75225 Intake: Hemodialysis 500 Output: Hemodialysis 5500 Hemodialysis Net Amount 5000 - Labs CBC & Chem 7: 05/19/25 05:56 05/20/25 07:50 Labs: Abnormal Lab Results - Last 24 Hours (Table) 05/19/25 05/19/25 05/19/25 Range/Units 06:48 12:42 15:55 Potassium 6.6 H* (3.5-5.1) mmol/L POC Glucose (mg/dL) 215 H (70-110) mg/dL Transferrin 190.0 L (204.0-354.0) mg/dL Ferritin 461.0 H (10.0-291.0) ng/mL 05/19/25 05/19/25 05/19/25 Range/Units 17:52 20:14 20:15 Potassium (3.5-5.1) mmol/L POC Glucose (mg/dL) 130 H 36 L* 30 L* (70-110) mg/dL Transferrin (204.0-354.0) mg/dL Ferritin (10.0-291.0) ng/mL 05/20/25 05/20/25 05/20/25 Range/Units 05:18 07:50 07:51 Potassium 6.0 H (3.5-5.1) mmol/L POC Glucose (mg/dL) 473 H 545 H* (70-110) mg/dL Transferrin (204.0-354.0) mg/dL Ferritin (10.0-291.0) ng/mL 05/20/25 05/20/25 05/20/25 Range/Units 09:33 09:34 12:16 Potassium (3.5-5.1) mmol/L POC Glucose (mg/dL) 534 H* 545 H* 213 H (70-110) mg/dL Transferrin (204.0-354.0) mg/dL Ferritin (10.0-291.0) ng/mL
[2025-05-20 17:09] LABS: Glucose,Whole Blood 63 mg/dL (70-110)
[2025-05-20 19:20] LABS: Glucose,Whole Blood 165 mg/dL (70-110)
[2025-05-20] MEDS: hydrOXYzine HCL 25 MG TAB PO PRN (22:26)
[2025-05-20 23:20] LABS: Glucose,Whole Blood 201 mg/dL (70-110)
[2025-05-21 04:36] LABS: Glucose,Whole Blood 160 mg/dL (70-110)
[2025-05-21 06:29] LABS: HCT 25.1 % (37.2-46.3); HGB 8.4 g/dL (12.0-15.0); MCH 33.2 pg (27.0-32.0); MCHC 33.5 g/dL (32.0-37.0); MCV 99.2 fL (80.0-97.0); Platelet Count 214 10*3/uL (140-440); RBC 2.53 10*6/uL (4.10-5.20); RDW 15.9 % (11.5-14.5); WBC 7.75 10*3/uL (4.50-10.00)
[2025-05-21 06:48] LABS: African American GFR (CKD) 15 (>60 ml/min/1.73 sqM); Anion Gap 8 mmol/L; Blood Urea Nitrogen 33 mg/dL (7-17); Calcium 8.8 mg/dL (8.4-10.2); Carbon Dioxide 32 mmol/L (22-30); Chloride 96 mmol/L (98-107); Glucose 159 mg/dL (74-99); Non-African American GFR(CKD) 13 (>60 ml/min/1.73 sqM); Potassium 4.6 mmol/L (3.5-5.1); Sodium 136 mmol/L (137-145)
[2025-05-21 07:40] LABS: Glucose,Whole Blood 155 mg/dL (70-110)
--- NOTE | 2025-05-21 11:22 | P.PN ---
Subjective Patient is seen for follow-up for end-stage renal disease. Currently seen on hemodialysis. Shortness of breath has improved Goal UF set for about 5 L today. Complaining of sore throat. Objective - Vital Signs Vital signs: Vital Signs Temp 96.8 F L 05/20/25 16:05 Pulse 73 05/21/25 09:00 Resp 16 05/21/25 09:00 BP 160/90 05/21/25 09:00 Pulse Ox 99 05/21/25 09:00 FiO2 Intake & Output 05/20/25 05/21/25 05/21/25 18:59 06:59 18:59 Intake Total 500 Output Total 3500 Balance -3000 Intake: Hemodialysis 500 Output: Hemodialysis 2000 Hemodialysis Net Amount 1500 - Exam Patient is awake, comfortable, no acute distress Examination of the heart S1 and S2 Examination of the lungs decreased breath sounds at the bases Abdomen is soft nontender Examination of lower extremities shows trace edema [employer] exam grossly intact - Labs CBC & Chem 7: 05/21/25 06:00 05/21/25 06:00 Labs: Abnormal Lab Results - Last 24 Hours (Table) 05/20/25 05/20/25 05/20/25 Range/Units 12:16 17:08 19:17 RBC (4.10-5.20) 10*6/uL Hgb (12.0-15.0) g/dL Hct (37.2-46.3) % MCV (80.0-97.0) fL MCH (27.0-32.0) pg Sodium (137-145) mmol/L Chloride (98-107) mmol/L Carbon Dioxide (22-30) mmol/L BUN (7-17) mg/dL Creatinine (0.52-1.04) mg/dL Glucose (74-99) mg/dL POC Glucose (mg/dL) 213 H 63 L 165 H (70-110) mg/dL 05/20/25 05/21/25 05/21/25 Range/Units 23:19 04:33 06:00 RBC 2.53 L (4.10-5.20) 10*6/uL Hgb 8.4 L (12.0-15.0) g/dL Hct 25.1 L (37.2-46.3) % MCV 99.2 H (80.0-97.0) fL MCH 33.2 H (27.0-32.0) pg Sodium (137-145) mmol/L Chloride (98-107) mmol/L Carbon Dioxide (22-30) mmol/L BUN (7-17) mg/dL Creatinine (0.52-1.04) mg/dL Glucose (74-99) mg/dL POC Glucose (mg/dL) 201 H 160 H (70-110) mg/dL 05/21/25 05/21/25 Range/Units 06:00 07:39 RBC (4.10-5.20) 10*6/uL Hgb (12.0-15.0) g/dL Hct (37.2-46.3) % MCV (80.0-97.0) fL MCH (27.0-32.0) pg Sodium 136 L (137-145) mmol/L Chloride 96 L (98-107) mmol/L Carbon Dioxide 32 H (22-30) mmol/L BUN 33 H (7-17) mg/dL Creatinine 4.18 H (0.52-1.04) mg/dL Glucose 159 H (74-99) mg/dL POC Glucose (mg/dL) 155 H (70-110) mg/dL Assessment and Plan Assessment: 1. End-stage renal disease maintained on hemodialysis on Wednesday schedule. 2. Hyperkalemia secondary to chronic kidney disease. Also component of hyperglycemia. 3. Hyponatremia, hypervolemic. 4. Acute hypoxic respiratory failure. 5. Volume overload. 6. Diabetes mellitus with hyperglycemia. 7. Hypertensive emergency secondary to volume overload. 8. Anemia of chronic kidney disease. Iron deficiency noted. On . 9. Chronic kidney disease mineral bone disease. Plan: Hemodialysis today and again in a.m. continue with potassium restriction and diet Continue with [place] salt and fluid restriction. Control blood sugars
[2025-05-21 14:04] VITALS: RESP 18; TEMP 98.1
--- NOTE | 2025-05-21 14:49 | P.DS ---
Providers Date of admission: 05/19/25 06:42 Attending physician: Dahiana Chan Consults: 05/19/25 06:30 Consult Physician Routine Consulting Provider: Gary Andrade Consult Reason/Comments: Dialysis patient. Volume overload Do you want consulting provider notified?: Already Contacted Primary care physician: Stated None Hospital Course: Discharge Diagnosis: SOB secondary to pleural effusion and hyperkalemia Hospital Course: Patient is a 35-year-old female with HFpEF (60% EF) 2024), type 1 diabetes, GERD, hypertension, ESRD (hemodialysis Saturdays), seizure disorder, hypothyroidism, anxiety, depression here for evaluation of shortness of breath. Patient denies chest pain, palpitations and abdominal pain. Patient on HD on Wednesday, Wednesday, and Saturdays. While in the ER, patient underwent lab work significant for hemoglobin 8.7, potassium 4, creatinine 5.14 BUN 43, Na 131, glucose 413. An EKG was also done indicating sinus tachycardia. In addition, a chest x-ray was done showing cardiomegaly with diffuse interstitial changes and pulmonary edema. bilateral pleural effusions also noted, which were slightly worsened from previous admissions' chest x-rays. As inpatient, she was followed up by Nephrology. Patient experienced an episode of hyperkalemia of 6.0, for which she was hemodyalized with 4.5L of ultrafiltration and continues on Lokelma. Her most recent labs prior to discharge shows potassium 4.6 glucose 159, Creatinine 4.18, Sodium 136 and hemoglobin 8.4. On discharge, she is advised to follow up by her primary physician for follow up. At time of discharge, patient is hemodynamically stable and has returned to her baseline. Pt seen and examined at bedside: 05/21/2025 General: non toxic, no distress, appears at stated age, normal weight Derm: no unusual rashes/lesions, warm Head: atraumatic, normocephalic, symmetric ENT: Nose and ears atraumatic Neck: No cervical lymphadenopathy, trachea midline, supple Mouth: no lip lesion, mucus membranes moist Cardiovascular: S1S2 reg, no murmur,regular rate and rhythm Lungs: no rhonchi, no rales, no accessory muscle use Abdominal: soft, nontender to palpation, no guarding Ext: muscle strength 5 out of 5 in all 4 extremities grossly, no gross muscle atrophy, no contractures Neuro: CN II-XI grossly intact, no gross focal neuro deficits Psych: Alert, oriented, appropriate affect A total of greater than 30 minutes were spent preparing this complex discarge summary. Patient was discharged on 05/21/2025 Patient Condition at Discharge: Fair Plan - Discharge Summary New Discharge Prescriptions: Continue Lidocaine 4% Patch 1 patch TOPICAL DAILY@0800 Ipratropium-Albuterol Nebulize [Duoneb 0.5 mg-3 mg/3 ml Soln] 3 ml INHALATION RT-TID PRN each PRN Reason: Shortness Of Breath Or Wheezing Biotene Dry Mouth/Throat 10 ml PO BID PRN PRN Reason: DRY MOUTH/THROAT Acetaminophen [Tylenol] 650 mg PO Q4H PRN PRN Reason: Pain Or Fever > 100.5 Loratadine [Claritin] 5 mg PO DAILY tab Sertraline [Zoloft] 200 mg PO DAILY@0800 Folic Acid/Vit B Complex and C [Davina-Mayte Tablet] 0.8 mg PO DAILY Isosorbide Mononitrate ER [Imdur] 120 mg PO DAILY #60 tab Gabapentin [Neurontin] 100 mg PO BID 30 Days #60 cap Linagliptin [Tradjenta] 5 mg PO DAILY #30 tab cloNIDine HCL [Catapres] 0.3 mg PO TID Insulin Lispro [humaLOG Kwikpen] See Protocol SQ AC-TID carvediloL [Coreg] 50 mg PO BID #120 tablet Lidocaine 5% Cream 1 applic TOPICAL MOTUWETHSA ALPRAZolam [Xanax] 0.25 mg PO BID PRN PRN Reason: Anxiety Bacitracin Zinc Oint 1 applic TOPICAL TID each NIFEdipine XL [Procardia XL] 90 mg PO Q12HR #60 tab Ondansetron Odt [Zofran ODT] 4 mg PO Q8HR PRN #10 tab PRN Reason: Nausea INSULIN LISPRO (HumaLOG) [HumaLOG] 8 unit SQ AC-TID #0 each Docusate [Colace] 100 mg PO DAILY@0800 polyethylene glycoL 3350 [Miralax] 17 gm PO AC-LUNCH #527 gm Melatonin 1 mg PO HS tab Aspirin 81 mg PO DAILY@0800 #30 tab Famotidine [Pepcid] 20 mg PO BID #60 tab Levothyroxine Sodium [Synthroid] 175 mcg PO DAILY@0600 traZODone HCL [Desyrel] 50 mg PO HS #20 tab Ipratropium-Albuterol Nebulize [Duoneb 0.5 mg-3 mg/3 ml Soln] 3 ml INHALATION RT-TID #100 each Calcium Acetate [PhosLo] 1,334 mg PO TID-W/MEALS 30 Days #360 tab Divalproex Sodium [Depakote] 500 mg PO BID@0800,1700 Methoxy Peg-Epoetin Beta [Mircera] 100 mcg SQ Q14D Insulin Glargine (Lantus) [Lantus Vial] 11 unit SQ BID #0 oxyCODONE HCL/ACETAMINOPHEN [Percocet 10-325 mg] 1 tab PO DAILY PRN PRN Reason: Pain hydrOXYzine HCL [Atarax] 25 mg PO TID PRN #10 tab PRN Reason: Itching Sodium Zirconium Cyclosilicate [Lokelma] 10 gm PO DAILY #30 Pantoprazole [Protonix] 40 mg PO AC-BRKFST #30 tab Mirtazapine 30 mg PO DAILY 30 Days #30 tablet Mirtazapine 30 mg PO HS Discharge Medication List Docusate [Colace] 100 mg PO DAILY@0800 02/05/24 [History] Lidocaine 4% Patch 1 patch TOPICAL DAILY@0802/05/24 [History] Ipratropium-Albuterol Nebulize [Duoneb 0.5 mg-3 mg/3 ml Soln] 3 ml INHALATION RT-TID PRN each 02/14/24 [Rx] polyethylene glycoL 3350 [Miralax] 17 gm PO AC-LUNCH #527 gm 02/14/24 [Rx] Acetaminophen [Tylenol] 650 mg PO Q4H PRN 02/18/24 [History] Biotene Dry Mouth/Throat 10 ml PO BID PRN 02/18/24 [History] Melatonin 1 mg PO HS tab 02/25/24 [Rx] Loratadine [Claritin] 5 mg PO DAILY tab 03/30/24 [Rx] Aspirin 81 mg PO DAILY@0800 #30 tab 05/18/24 [Rx] Famotidine [Pepcid] 20 mg PO BID #60 tab 07/11/24 [Rx] Levothyroxine Sodium [Synthroid] 175 mcg PO DAILY@0600 08/14/24 [History] Sertraline [Zoloft] 200 mg PO DAILY@0800 08/14/24 [History] Folic Acid/Vit B Complex and C [Davina-Mayte Tablet] 0.8 mg PO DAILY 12/20/24 [ History] traZODone HCL [Desyrel] 50 mg PO HS #20 tab 01/01/25 [Rx] Isosorbide Mononitrate ER [Imdur] 120 mg PO DAILY #60 tab 01/02/25 [Rx] Gabapentin [Neurontin] 100 mg PO BID 30 Days #60 cap 01/03/25 [Rx] Linagliptin [Tradjenta] 5 mg PO DAILY #30 tab 01/03/25 [Rx] Insulin Lispro [humaLOG Kwikpen] See Protocol SQ AC-TID 01/22/25 [History] cloNIDine HCL [Catapres] 0.3 mg PO TID 01/22/25 [History] carvediloL [Coreg] 50 mg PO BID #120 tablet 02/15/25 [Rx] Calcium Acetate [PhosLo] 1,334 mg PO TID-W/MEALS 30 Days #360 tab 02/19/25 [Rx] Ipratropium-Albuterol Nebulize [Duoneb 0.5 mg-3 mg/3 ml Soln] 3 ml INHALATION RT-TID #100 each 02/19/25 [Rx] ALPRAZolam [Xanax] 0.25 mg PO BID PRN 02/26/25 [History] Divalproex Sodium [Depakote] 500 mg PO BID@0800,1700 02/26/25 [History] Lidocaine 5% Cream 1 applic TOPICAL MOTUWETHSA 02/26/25 [History] Methoxy Peg-Epoetin Beta [Mircera] 100 mcg SQ Q14D 02/26/25 [History] Insulin Glargine (Lantus) [Lantus Vial] 11 unit SQ BID #0 03/18/25 [Rx] oxyCODONE HCL/ACETAMINOPHEN [Percocet 10-325 mg] 1 tab PO DAILY PRN 04/16/25 [History] hydrOXYzine HCL [Atarax] 25 mg PO TID PRN #10 tab 04/24/25 [Rx] Sodium Zirconium Cyclosilicate [Lokelma] 10 gm PO DAILY #30 04/27/25 [Rx] Bacitracin Zinc Oint 1 applic TOPICAL TID each 05/07/25 [Rx] NIFEdipine XL [Procardia XL] 90 mg PO Q12HR #60 tab 05/07/25 [Rx] Ondansetron Odt [Zofran ODT] 4 mg PO Q8HR PRN #10 tab 05/07/25 [Rx] Pantoprazole [Protonix] 40 mg PO AC-BRKFST #30 tab 05/07/25 [Rx] INSULIN LISPRO (HumaLOG) [HumaLOG] 8 unit SQ AC-TID #0 each 05/17/25 [Rx] Mirtazapine 30 mg PO DAILY 30 Days #30 tablet 05/17/25 [Rx] Mirtazapine 30 mg PO HS 05/19/25 [History] Follow up Appointment(s)/Referral(s): None,Stated [Primary Care Provider] - 1-2 days
[2025-05-21 15:31] VITALS: BP 196/101; PULSE 72
== END 2025-05-21 15:32 | disposition home or self-care (01) | DRG 291 ==
LOC: EC 05:15 → 3SCARD 06:42
PROVIDERS: ADMIT Hospitalist; ATTEND Hospitalist
DX: I13.2 Hypertensive heart and chronic kidney disease with heart failure and with stage 5 chronic kidney disease, or end stage renal disease (principal); I50.33 Acute on chronic diastolic (congestive) heart failure; J96.22 Acute and chronic respiratory failure with hypercapnia; N18.6 End stage renal disease; J96.21 Acute and chronic respiratory failure with hypoxia; E87.1 Hypo-osmolality and hyponatremia; D63.1 Anemia in chronic kidney disease; Z99.2 Dependence on renal dialysis; I16.1 Hypertensive emergency; E10.22 Type 1 diabetes mellitus with diabetic chronic kidney disease; G40.909 Epilepsy, unspecified, not intractable, without status epilepticus; E03.9 Hypothyroidism, unspecified; F32.A Depression, unspecified; I69.398 Other sequelae of cerebral infarction; E10.65 Type 1 diabetes mellitus with hyperglycemia; Z79.4 Long term (current) use of insulin; E87.5 Hyperkalemia; K21.9 Gastro-esophageal reflux disease without esophagitis; H54.61 Unqualified visual loss, right eye, normal vision left eye; F41.9 Anxiety disorder, unspecified; Z79.890 Hormone replacement therapy; Z79.84 Long term (current) use of oral hypoglycemic drugs; Z79.82 Long term (current) use of aspirin; Z79.899 Other long term (current) drug therapy; Z87.891 Personal history of nicotine dependence; Z82.49 Family history of ischemic heart disease and other diseases of the circulatory system
CPT/HCPCS: 36415; 71045; 80048; 80053; 82728; 83540; 83550; 83605; 83880; 84132; 84484; 85025; 85027; 85610; 85730; 90935; 93005; 94640; 94760; 96365; 96366; 96375; 99285

== ENCOUNTER 2025-05-27 15:20 | Inpatient (IN) | payer MEDICARE ==
--- NOTE | 2025-05-27 15:52 | ED ---
General Adult HPI - General Chief complaint: Recheck/Abnormal Lab/Rx Stated complaint: Hyperglycemia Time Seen by Provider: 05/27/25 15:24 Source: patient, EMS, RN notes reviewed Mode of arrival: EMS Limitations: no limitations - History of Present Illness Initial comments: Patient is a 35-year-old female presenting to the emergency department with conc sandrita for hyperglycemia. Onset of symptoms was yesterday. Blood sugar was labile and then has been reading high on her meter. Patient feels weak and fatigued. Patient has nausea and pain all over. No vomiting. Patient does feel little short of breath and questions if she could have fluid overload. No leg edema. - Related Data Home Medications Medication Instructions Recorded Confirmed Docusate [Colace] 100 mg PO DAILY@0800 02/05/24 05/19/25 Lidocaine 4% Patch 1 patch TOPICAL DAILY@0800 02/05/24 05/19/25 Acetaminophen [Tylenol] 650 mg PO Q4H PRN 02/18/24 05/19/25 Biotene Dry Mouth/Throat 10 ml PO BID PRN 02/18/24 05/19/25 Levothyroxine Sodium [Synthroid] 175 mcg PO DAILY@0600 08/14/24 05/19/25 Sertraline [Zoloft] 200 mg PO DAILY@0800 08/14/24 05/19/25 Folic Acid/Vit B Complex and C 0.8 mg PO DAILY 12/20/24 05/19/25 [Davina-Mayte Tablet] Insulin Lispro [humaLOG Kwikpen] See Protocol SQ AC-TID 01/22/25 05/19/25 cloNIDine HCL [Catapres] 0.3 mg PO TID 01/22/25 05/19/25 ALPRAZolam [Xanax] 0.25 mg PO BID PRN 02/26/25 05/19/25 Divalproex Sodium [Depakote] 500 mg PO BID@0800,1700 02/26/25 05/19/25 Lidocaine 5% Cream 1 applic TOPICAL MOTUWETHSA 02/26/25 05/19/25 Methoxy Peg-Epoetin Beta [Mircera] 100 mcg SQ Q14D 02/26/25 05/19/25 oxyCODONE HCL/ACETAMINOPHEN 1 tab PO DAILY PRN 04/16/25 05/19/25 [Percocet 10-325 mg] Mirtazapine 30 mg PO HS 05/19/25 05/19/25 Previous Rx's Medication Instructions Recorded Ipratropium-Albuterol Nebulize 3 ml INHALATION RT-TID PRN each 02/14/24 [Duoneb 0.5 mg-3 mg/3 ml Soln] polyethylene glycoL 3350 [Miralax] 17 gm PO AC-LUNCH #527 gm 02/14/24 Melatonin 1 mg PO HS tab 02/25/24 Loratadine [Claritin] 5 mg PO DAILY tab 03/30/24 Aspirin 81 mg PO DAILY@0800 #30 tab 05/18/24 Famotidine [Pepcid] 20 mg PO BID #60 tab 07/11/24 traZODone HCL [Desyrel] 50 mg PO HS #20 tab 01/01/25 Isosorbide Mononitrate ER [Imdur] 120 mg PO DAILY #60 tab 01/02/25 Gabapentin [Neurontin] 100 mg PO BID 30 Days #60 cap 01/03/25 Linagliptin [Tradjenta] 5 mg PO DAILY #30 tab 01/03/25 carvediloL [Coreg] 50 mg PO BID #120 tablet 02/15/25 Calcium Acetate [PhosLo] 1,334 mg PO TID-W/MEALS 30 Days 02/19/25 #360 tab Ipratropium-Albuterol Nebulize 3 ml INHALATION RT-TID #100 each 02/19/25 [Duoneb 0.5 mg-3 mg/3 ml Soln] Insulin Glargine (Lantus) [Lantus 11 unit SQ BID #0 03/18/25 Vial] hydrOXYzine HCL [Atarax] 25 mg PO TID PRN #10 tab 04/24/25 Sodium Zirconium Cyclosilicate 10 gm PO DAILY #30 04/27/25 [Lokelma] Bacitracin Zinc Oint 1 applic TOPICAL TID each 05/07/25 NIFEdipine XL [Procardia XL] 90 mg PO Q12HR #60 tab 05/07/25 Ondansetron Odt [Zofran ODT] 4 mg PO Q8HR PRN #10 tab 05/07/25 Pantoprazole [Protonix] 40 mg PO AC-BRKFST #30 tab 05/07/25 INSULIN LISPRO (HumaLOG) [HumaLOG] 8 unit SQ AC-TID #0 each 05/17/25 Mirtazapine 30 mg PO DAILY 30 Days #30 tablet 05/17/25 Allergies Allergy/AdvReac Type Severity Reaction Status Date / Time propoxyphene Allergy Rash/Hives Verified 05/27/25 15:36 [From Darvocet-N] tramadol Allergy Anaphylaxis Verified 05/27/25 15:36 ampicillin [From Unasyn] AdvReac Itching Verified 05/27/25 15:36 ibuprofen [From Motrin] AdvReac unable to Verified 05/27/25 15:36 take due to kidney disease sulbactam [From Unasyn] AdvReac Itching Verified 05/27/25 15:36 venom-honey bee AdvReac passes out Verified 05/27/25 15:36 [bee venom (honey bee)] Review of Systems ROS Statement: Those systems with pertinent positive or pertinent negative responses have been documented in the HPI. ROS Other: All systems not noted in ROS Statement are negative. 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 Past Anesthesia/Blood Transfusion Reactions: Previous Problems w/ Anesthesia Additional Past Anesthesia/Blood Transfusion Reaction / Comment(s): confusion Past Psychological History: Anxiety, Depression Smoking Status: Former smoker Past Alcohol Use History: None Reported Past Drug Use History: Marijuana - Past Family History Father History Unknown: Yes Family Medical History: Unable to Obtain Mother History Unknown: Yes Family Medical History: No Reported History Grandfather History Unknown: Yes Family Medical History: Coronary Artery Disease (CAD) Additional Family Medical History / Comment(s): Diabetes mellitus type 2 General Exam Limitations: no limitations General appearance: alert, in no apparent distress Head exam: Present: normocephalic Eye exam: Present: normal appearance ENT exam: Present: mucous membranes dry Neck exam: Present: normal inspection Respiratory exam: Present: normal lung sounds bilaterally Cardiovascular Exam: Present: regular rate, normal rhythm GI/Abdominal exam: Present: soft. Absent: tenderness Extremities exam: Present: normal inspection. Absent: pedal edema, calf tenderness Neurological exam: Present: alert Psychiatric exam: Present: normal affect, normal mood Skin exam: Present: normal color Course Vital Signs 05/27/25 05/27/25 15:29 17:23 Temperature 98.5 F Pulse Rate 64 68 Respiratory 24 24 Rate Blood Pressure 207/99 217/107 O2 Sat by Pulse 99 97 Oximetry EKG Findings - EKG Results: EKG: interpreted by ERMD, sinus rhythm, normal axis, normal QRS, normal ST/T Medical Decision Making - Medical Decision Making Was pt. sent in by a medical professional or institution ([facility], [employer], urgent care, hospital, or [facility]...) When possible be specific @ -No Did you speak to anyone other than the patient for history (EMS, parent, family, police, friend...)? What history was obtained from this source @ -No Did you review nursing and triage notes (agree or disagree)? Why? @ -I reviewed and agree with nursing and triage notes Were old charts reviewed (outside hosp., previous admission, EMS record, old EKG, old radiological studies, urgent care reports/EKG's, [facility] records)? Report findings @ -Previous admission and labs reviewed Differential Diagnosis (chest pain, altered mental status, abdominal pain women, abdominal pain men, vaginal bleeding, weakness, fever, dyspnea, syncope, headache, dizziness, GI bleed, back pain, seizure, CVA, palpatations, mental health, musculoskeletal)? @ -Differential Weakness: Hypoglycemia, shock, sepsis, hyponatremia, anemia, infection, OR, ETOH, adverse medicine reaction, overdose, stroke, this is not meant to be an all-inclusive list. EKG interpreted by me (3pts min.). @ -As above X-rays interpreted by me (1pt min.). @ -Chest x-ray concerning for pulmonary edema CT interpreted by me (1pt min.). @ -None done U/S interpreted by me (1pt. min.). @ -None done What testing was considered but not performed or refused? (CT, X-rays, U/S, labs)? Why? @ -None What meds were considered but not given or refused? Why? @ -None Did you discuss the management of the patient with other professionals (lupe morales i.e. , PA, [employer], lab, RT, psych nurse, social worker school, mixed crop and livestock farm worker, teacher, chief procurement officer, bilingual patient support caseworker)? Give summary @ -Case discussed with Dr. Mckenna who will consult for critical care. Case also discussed with Dr. Del Castillo who will admit covering hospital call Was smoking cessation discussed for >3mins.? @ -No Was critical care preformed (if so, how long)? @ -32 minutes critical care time Were there social determinants of health that impacted care today? How? (Homelessness, low income, unemployed, alcoholism, drug addiction, transportation, low edu. Level, literacy, decrease access to med. care, intermediate, rehab)? @ -No Was there de-escalation of care discussed even if they declined (Discuss DNR or withdrawal of care, Hospice)? DNR status @ -No What co-morbidities impacted this encounter? (DM, HTN, Smoking, COPD, CAD, Cancer, CVA, ARF, Chemo, Hep., AIDS, mental health diagnosis, sleep apnea, morbid obesity)? @ -Uncontrolled diabetes Was patient admitted / discharged? Hospital course, mention meds given and route, prescriptions, significant lab abnormalities, going to OR and other pertinent info. @ -Patient presents with concern with fluid on her lungs as well as uncontrolled blood sugar. Patient does have hyperglycemia, severe. Concern for pulmonary edema. Patient will be admitted to ICU with consult for nephrology. Dialysis nurse is aware of patient. Admission orders written Undiagnosed new problem with uncertain prognosis? @ -No Drug Therapy requiring intensive monitoring for toxicity (Heparin, Nitro, Insulin, Cardizem)? @ -Insulin drip Were any procedures done? @ -No Diagnosis/symptom? @ -Diabetic ketoacidosis Acute, or Chronic, or Acute on Chronic? @ -Acute Uncomplicated (without systemic symptoms) or Complicated (systemic symptoms)? @ -Complicated with hypertension, hyperkalemia Side effects of treatment? @ -No Exacerbation, Progression, or Severe Exacerbation? @ -No Poses a threat to life or bodily function? How? (Chest pain, USA, OR, pneumonia, PE, COPD, DKA, ARF, appy, cholecystitis, CVA, Diverticulitis, Homicidal, Suicidal, threat to staff... and all critical care pts) @ -Threat to metabolic function - Lab Data Result diagrams: 05/27/25 15:52 05/27/25 15:52 Lab Results 05/27/25 05/27/25 05/27/25 Range/Units 15:52 15:52 15:52 WBC 10.32 H (4.50-10.00) 10*3/uL RBC 2.53 L (4.10-5.20) 10*6/uL Hgb 8.5 L (12.0-15.0) g/dL Hct 25.4 L (37.2-46.3) % MCV 100.4 H (80.0-97.0) fL MCH 33.6 H (27.0-32.0) pg MCHC 33.5 (32.0-37.0) g/dL Plt Count 244 (140-440) 10*3/uL MPV 11.4 (9.5-12.2) fL Immature Gran % (Auto) 0.8 % Neutrophils % 79.6 % Lymphocytes % 9.4 % Monocytes % 6.8 % Eosinophils % 2.3 % Basophils % 1.1 % Immature Gran # 0.08 H (0.00-0.04) 10*3/uL Neutrophils # 8.22 H (1.80-7.70) 10*3/uL Lymphocytes # 0.97 (0.90-5.00) 10*3/uL Monocytes # 0.70 (0.20-1.00) 10*3/uL Eosinophils # 0.24 (0.04-0.35) 10*3/uL Basophils # 0.11 H (0.00-0.10) 10*3/uL PT 13.8 H (10.0-12.5) sec INR 1.3 H (<1.2) APTT 24.2 (22.0-30.0) sec Sodium 115 L* (137-145) mmol/L Potassium 6.8 H* (3.5-5.1) mmol/L Chloride 79 L (98-107) mmol/L Carbon Dioxide 21 L (22-30) mmol/L Anion Gap 15 mmol/L BUN 49 H (7-17) mg/dL Creatinine 4.13 H (0.52-1.04) mg/dL Est GFR (CKD-EPI)AfAm 15 (>60 ml/min/1.73 sqM) Est GFR (CKD-EPI)NonAf 13 (>60 ml/min/1.73 sqM) Glucose 961 H* (74-99) mg/dL Plasma Lactic Acid Christopher (0.7-2.0) mmol/L Calcium 8.9 (8.4-10.2) mg/dL Magnesium 1.9 (1.6-2.3) mg/dL Total Bilirubin 1.1 (0.2-1.3) mg/dL AST 59 H (14-36) U/L ALT 86 H (4-34) U/L Alkaline Phosphatase 349 H (38-126) U/L Troponin I (0.000-0.034) ng/mL Total Protein 6.0 L (6.3-8.2) g/dL Albumin 3.9 (3.5-5.0) g/dL Acetone, Qual Positive (Negative) 05/27/25 05/27/25 Range/Units 15:52 15:52 WBC (4.50-10.00) 10*3/uL RBC (4.10-5.20) 10*6/uL Hgb (12.0-15.0) g/dL Hct (37.2-46.3) % MCV (80.0-97.0) fL MCH (27.0-32.0) pg MCHC (32.0-37.0) g/dL Plt Count (140-440) 10*3/uL MPV (9.5-12.2) fL Immature Gran % (Auto) % Neutrophils % % Lymphocytes % % Monocytes % % Eosinophils % % Basophils % % Immature Gran # (0.00-0.04) 10*3/uL Neutrophils # (1.80-7.70) 10*3/uL Lymphocytes # (0.90-5.00) 10*3/uL Monocytes # (0.20-1.00) 10*3/uL Eosinophils # (0.04-0.35) 10*3/uL Basophils # (0.00-0.10) 10*3/uL PT (10.0-12.5) sec INR (<1.2) APTT (22.0-30.0) sec Sodium (137-145) mmol/L Potassium (3.5-5.1) mmol/L Chloride (98-107) mmol/L Carbon Dioxide (22-30) mmol/L Anion Gap mmol/L BUN (7-17) mg/dL Creatinine (0.52-1.04) mg/dL Est GFR (CKD-EPI)AfAm (>60 ml/min/1.73 sqM) Est GFR (CKD-EPI)NonAf (>60 ml/min/1.73 sqM) Glucose (74-99) mg/dL Plasma Lactic Acid Christopher 2.8 H* (0.7-2.0) mmol/L Calcium (8.4-10.2) mg/dL Magnesium (1.6-2.3) mg/dL Total Bilirubin (0.2-1.3) mg/dL AST (14-36) U/L ALT (4-34) U/L Alkaline Phosphatase (38-126) U/L Troponin I <0.012 (0.000-0.034) ng/mL Total Protein (6.3-8.2) g/dL Albumin (3.5-5.0) g/dL Acetone, Qual (Negative) Disposition Clinical Impression: Ketosis due to diabetes, Renal failure Disposition: ADMITTED IP TO THIS HOSP Condition: Critical Is patient prescribed a controlled substance at d/c from ED?: No Referrals: None,Stated [Primary Care Provider] - 1-2 days Time of Disposition: 17:52
[2025-05-27 16:11] LABS: Basophils # (A) 0.11 10*3/uL (0.00-0.10); Basophils % (A) 1.1 %; Eosinophils # (A) 0.24 10*3/uL (0.04-0.35); Eosinophils % (A) 2.3 %; HCT 25.4 % (37.2-46.3); HGB 8.5 g/dL (12.0-15.0); Lymphocytes # (A) 0.97 10*3/uL (0.90-5.00); Lymphocytes % (A) 9.4 %; MCH 33.6 pg (27.0-32.0); MCHC 33.5 g/dL (32.0-37.0); MCV 100.4 fL (80.0-97.0); Monocytes # (A) 0.70 10*3/uL (0.20-1.00); Monocytes % (A) 6.8 %; Neutrophils # (A) 8.22 10*3/uL (1.80-7.70); Neutrophils % (A) 79.6 %; Platelet Count 244 10*3/uL (140-440); RBC 2.53 10*6/uL (4.10-5.20); RDW 17.0 % (11.5-14.5); WBC 10.32 10*3/uL (4.50-10.00)
[2025-05-27 16:37] LABS: ALT 86 U/L (4-34); AST 59 U/L (14-36); African American GFR (CKD) 15 (>60 ml/min/1.73 sqM); Albumin 3.9 g/dL (3.5-5.0); Alkaline Phosphatase 349 U/L (38-126); Anion Gap 15 mmol/L; Blood Urea Nitrogen 49 mg/dL (7-17); Calcium 8.9 mg/dL (8.4-10.2); Carbon Dioxide 21 mmol/L (22-30); Chloride 79 mmol/L (98-107); Magnesium 1.9 mg/dL (1.6-2.3); Non-African American GFR(CKD) 13 (>60 ml/min/1.73 sqM); Total Protein 6.0 g/dL (6.3-8.2)
[2025-05-27 16:38] LABS: INR 1.3 (<1.2); Partial Thromboplastin Time 24.2 sec (22.0-30.0); Prothrombin Time 13.8 sec (10.0-12.5)
--- NOTE | 2025-05-27 16:46 | XR ---
EXAMINATION TYPE: XR chest 2V DATE OF EXAM: 05/27/2025 4:42 PM COMPARISON: Chest radiographs from 05/19/2025 CLINICAL INDICATION: Female, 35 years old with history of Weakness; [facility] TECHNIQUE: XR chest 2V Frontal and lateral views of the chest. FINDINGS: Lungs/Pleura: There is no evidence of pleural effusion, focal consolidation, or pneumothorax. Pulmonary vascularity: Unremarkable. Heart/mediastinum: Cardiomediastinal silhouette is unremarkable. Musculoskeletal: No acute osseous pathology. IMPRESSION: Redemonstration of multifocal airspace opacities from 05/19/2025. Correlate for pulmonary edema versus pneumonia.. [facility], , 05/27/2025 4:43 PM
[2025-05-27 16:50] LABS: Glucose 961 mg/dL (74-99)
[2025-05-27 16:52] LABS: Potassium 6.8 mmol/L (3.5-5.1); Sodium 115 mmol/L (137-145)
[2025-05-27] MEDS: ONDANSETRON 4 MG/2 ML VIAL IM STA (17:25)
[2025-05-27] MEDS: ONDANSETRON 4 MG/2 ML VIAL IVP STA (17:26)
[2025-05-27] MEDS: ACETAMINOPHEN IV (For NPO) 1,000 MG in EMPTY BAG 1 BAG IVPB STA (17:30)
[2025-05-27] MEDS: LIDOCAINE-PRILOCAINE 2.5-2.5% CREAM 5 GM TUBE TOPICAL STA (18:12)
[2025-05-27] MEDS: INSULIN REGULAR 100 UNIT in SODIUM CHLORIDE 0.9% 100 ML IV SCH (18:32)
[2025-05-27] MEDS: INSULIN REGULAR BOLUS (FROM DRIP BAG) IV ONE (18:32)
[2025-05-27 18:34] LABS: Glucose,Whole Blood >600 mg/dL (70-110)
[2025-05-27] MEDS: SODIUM CHLORIDE 0.9% 1,000 ML IV ONE (18:49)
[2025-05-27] MEDS ORDERED: NALOXONE 0.4 MG/ML 1 ML VIAL IV PRN (18:58)
[2025-05-27 20:04] LABS: Glucose,Whole Blood 490 mg/dL (70-110)
[2025-05-27 20:35] LABS: African American GFR (CKD) 23 (>60 ml/min/1.73 sqM); Anion Gap 16 mmol/L; Blood Urea Nitrogen 30 mg/dL (7-17); Carbon Dioxide 26 mmol/L (22-30); Chloride 84 mmol/L (98-107); Glucose 486 mg/dL (74-99); Non-African American GFR(CKD) 20 (>60 ml/min/1.73 sqM); Potassium 4.1 mmol/L (3.5-5.1); Sodium 126 mmol/L (137-145)
[2025-05-27 21:06] LABS: Glucose,Whole Blood 400 mg/dL (70-110)
[2025-05-27] MEDS: NIFEdipine XL 90 MG TAB.ER.24 PO SCH (21:41)
[2025-05-27 22:03] LABS: Glucose,Whole Blood 354 mg/dL (70-110)
[2025-05-27] MEDS: ONDANSETRON 4 MG/2 ML VIAL IVP PRN (22:42)
[2025-05-27] MEDS: HYDROmorphone 0.5 MG/0.5 ML SYRINGE IVP PRN (22:42)
[2025-05-27 23:10] LABS: Glucose,Whole Blood 267 mg/dL (70-110)
[2025-05-27] MEDS: hydrALAZINE HCL 20 MG/ML 1 ML VIAL IVP PRN (23:14)
[2025-05-27] MEDS: CLEVIDIPINE BUTYRATE 25 MG in EMPTY BAG 1 BAG IV SCH (23:44)
[2025-05-28] MEDS: ALPRAZolam 0.25 MG TAB PO STA (00:02)
[2025-05-28 00:06] LABS: Glucose,Whole Blood 156 mg/dL (70-110)
[2025-05-28 00:15] LABS: African American GFR (CKD) 19 (>60 ml/min/1.73 sqM); Anion Gap 12 mmol/L; Blood Urea Nitrogen 33 mg/dL (7-17); Carbon Dioxide 28 mmol/L (22-30); Chloride 86 mmol/L (98-107); Glucose 249 mg/dL (74-99); Non-African American GFR(CKD) 16 (>60 ml/min/1.73 sqM); Potassium 4.5 mmol/L (3.5-5.1); Sodium 126 mmol/L (137-145)
[2025-05-28 01:02] LABS: Glucose,Whole Blood 120 mg/dL (70-110)
--- NOTE | 2025-05-28 01:48 | P.CNPUL ---
History of Present Illness Consult date: 05/28/25 Requesting physician: Lonnie Zepeda Reason for consult: other (ICU management) Chief complaint: High blood sugars History of present illness: Patient is a 35-year-old white female with significant past medical history including uncontrolled hypertension, uncontrolled diabetes mellitus, end-stage r enal disease (maintained on hemodialysis 4 times weekly), TIA/CVA, optic neuritis, among other things. Patient came to the emergency department yesterday afternoon with concerned of high blood sugars. Additionally, weak and fatigued. Nausea without vomiting. Blood sugar was found to be elevated at 961. Mild case of metabolic acidosis with a serum bicarb of 21 and anion gap of 16. Acetone positive. She was previously started on the DKA protocol. Her blood pressure is extremely hypertensive, currently 203/109 mmHg. Also, endorsing some shortness of breath. Chest x-ray consistent with pulmonary edema. She denies missing any of her antihypertensive medications. Denies missing any treatments of hemodialysis. Did receive a emergent hemodialysis treatment earlier yesterday, and a total of 3 L was removed. Most recent labs including a CBC with a WBC count of 10.3, hemoglobin 8.5 g/dL, platelets 244. CMP: Sodium 126, potassium 4.5, chloride 86, serum bicarb 28, anion gap 12, BUN 33, creatinine 3.52, glucose is currently down to 120. Lactic 2.5. LFTs mildly elevated. Troponin less than 0.012. Currently being seen in the intensive care unit. Alert and oriented. Nondistressed. She is on 2 L/min nasal cannula. Breathing has improved. Currently, her blood pressure is severely elevated at 203/109 mmHg. I asked the nurse to start this patient on Cleviprex. Her home antihypertensive medications have been resumed including Procardia XL 90 mg twice daily, Imdur 120 mg p.o. daily, Catapres 0.3 mg p.o. 3 times daily, and Coreg 50 mg p.o. twice daily. She denies any headache, vision changes, dizziness, chest pain, palpitations, edema. Her blood sugar improved. Denies any recent URI infections or sick contacts. States she has been compliant with her insulin therapy. No nausea or vomiting. A renal diet has been resumed. Review of Systems REVIEW OF SYSTEMS: CONSTITUTIONAL: Denies any recent significant weight loss or weight gain. EYES: Denies change in vision. EARS, NOSE, MOUTH, THROAT: Denies headaches, rhinorrhea, postnasal drip, sore throat. CARDIOVASCULAR: Denies chest pain, palpitations, syncopal episodes, lower extremity edema. RESPIRATORY: Denies cough, congestion or hemoptysis. Admits mild shortness of breath. GASTROINTESTINAL: Denies change in appetite, abdominal pain, or diarrhea. Previously, endorsing some nausea without emesis. GENITOURINARY: Denies hematuria, denies infections. MUSKULOSKELETAL: Denies swelling. Admits generalized nonlocalized continuous pain INTEGUMENTARY: Denies rash, denies eczema. NEUROLOGICAL: Denies recent memory loss, no recent seizure activity. PSYCHIATRIC: Denies anxiety, denies depression. 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 Past Anesthesia/Blood Transfusion Reactions: Previous Problems w/ Anesthesia Additional Past Anesthesia/Blood Transfusion Reaction / Comment(s): confusion Past Psychological History: Anxiety, Depression Smoking Status: Current some day smoker Past Alcohol Use History: None Reported Additional Past Alcohol Use History / Comment(s): Patient states she smokes a half a pack over 3-4 days but is trying to quit Past Drug Use History: Marijuana - Past Family History Father History Unknown: Yes Family Medical History: Unable to Obtain Mother History Unknown: Yes Family Medical History: No Reported History Grandfather History Unknown: Yes Family Medical History: Coronary Artery Disease (CAD) Additional Family Medical History / Comment(s): Diabetes mellitus type 2 Medications and Allergies Home Medications Medication Instructions Recorded Confirmed Type Docusate [Colace] 100 mg PO DAILY@0800 02/05/24 05/27/25 History Lidocaine 4% Patch 1 patch TOPICAL DAILY@0800 02/05/24 05/27/25 History Ipratropium-Albuterol Nebulize 3 ml INHALATION RT-TID PRN each 02/14/24 05/27/25 Rx [Duoneb 0.5 mg-3 mg/3 ml Soln] polyethylene glycoL 3350 [Miralax] 17 gm PO AC-LUNCH #527 gm 02/14/24 05/27/25 Rx Acetaminophen [Tylenol] 650 mg PO Q4H PRN 02/18/24 05/27/25 History Biotene Dry Mouth/Throat 10 ml PO BID PRN 02/18/24 05/27/25 History Melatonin 1 mg PO HS tab 02/25/24 05/27/25 Rx Loratadine [Claritin] 5 mg PO DAILY tab 03/30/24 05/27/25 Rx Aspirin 81 mg PO DAILY@0800 #30 tab 05/18/24 05/27/25 Rx Famotidine [Pepcid] 20 mg PO BID #60 tab 07/11/24 05/27/25 Rx Levothyroxine Sodium [Synthroid] 175 mcg PO DAILY@0600 08/14/24 05/27/25 History Sertraline [Zoloft] 200 mg PO DAILY@0800 08/14/24 05/27/25 History Folic Acid/Vit B Complex and C 0.8 mg PO DAILY 12/20/24 05/27/25 History [Davina-Mayte Tablet] traZODone HCL [Desyrel] 50 mg PO HS #20 tab 01/01/25 05/27/25 Rx Isosorbide Mononitrate ER [Imdur] 120 mg PO DAILY #60 tab 01/02/25 05/27/25 Rx Gabapentin [Neurontin] 100 mg PO BID 30 Days #60 cap 01/03/25 05/27/25 Rx Linagliptin [Tradjenta] 5 mg PO DAILY #30 tab 01/03/25 05/27/25 Rx Insulin Lispro [humaLOG Kwikpen] See Protocol SQ AC-TID 01/22/25 05/27/25 History cloNIDine HCL [Catapres] 0.3 mg PO TID 01/22/25 05/27/25 History carvediloL [Coreg] 50 mg PO BID #120 tablet 02/15/25 05/27/25 Rx Calcium Acetate [PhosLo] 1,334 mg PO TID-W/MEALS 30 Days 02/19/25 05/27/25 Rx #360 tab Ipratropium-Albuterol Nebulize 3 ml INHALATION RT-TID #100 each 02/19/25 05/27/25 Rx [Duoneb 0.5 mg-3 mg/3 ml Soln] ALPRAZolam [Xanax] 0.25 mg PO BID PRN 02/26/25 05/27/25 History Divalproex Sodium [Depakote] 500 mg PO BID@0800,1700 02/26/25 05/27/25 History Lidocaine 5% Cream 1 applic TOPICAL MOTUWETHSA 02/26/25 05/27/25 History Methoxy Peg-Epoetin Beta [Mircera] 100 mcg SQ Q14D 02/26/25 05/27/25 History Insulin Glargine (Lantus) [Lantus 11 unit SQ BID #0 03/18/25 05/27/25 Rx Vial] oxyCODONE HCL/ACETAMINOPHEN 1 tab PO DAILY PRN 04/16/25 05/27/25 History [Percocet 10-325 mg] hydrOXYzine HCL [Atarax] 25 mg PO TID PRN #10 tab 04/24/25 05/27/25 Rx Sodium Zirconium Cyclosilicate 10 gm PO DAILY #30 04/27/25 05/27/25 Rx [Lokelma] NIFEdipine XL [Procardia XL] 90 mg PO Q12HR #60 tab 05/07/25 05/27/25 Rx Ondansetron Odt [Zofran ODT] 4 mg PO Q8HR PRN #10 tab 05/07/25 05/27/25 Rx Pantoprazole [Protonix] 40 mg PO AC-BRKFST #30 tab 05/07/25 05/27/25 Rx INSULIN LISPRO (HumaLOG) [HumaLOG] 8 unit SQ AC-TID #0 each 05/17/25 05/27/25 Rx Mirtazapine 30 mg PO HS 05/19/25 05/27/25 History Allergies Allergy/AdvReac Type Severity Reaction Status Date / Time propoxyphene Allergy Rash/Hives Verified 05/27/25 15:36 [From Darvocet-N] tramadol Allergy Anaphylaxis Verified 05/27/25 15:36 ampicillin [From Unasyn] AdvReac Itching Verified 05/27/25 15:36 ibuprofen [From Motrin] AdvReac unable to Verified 05/27/25 15:36 take due to kidney disease sulbactam [From Unasyn] AdvReac Itching Verified 05/27/25 15:36 venom-honey bee AdvReac passes out Verified 05/27/25 15:36 [bee venom (honey bee)] Physical Exam Vitals: Vital Signs Temp Pulse Pulse Resp BP BP Pulse Ox 05/28/25 01:00 61 14 124/80 100 05/28/25 00:29 64 14 196/99 100 05/28/25 00:00 98.2 F 62 12 187/95 100 05/27/25 23:00 67 14 203/109 97 05/27/25 22:00 66 14 201/105 99 05/27/25 21:00 65 15 217/104 99 05/27/25 20:55 98.2 F 66 18 196/96 05/27/25 20:00 98.2 F 69 18 191/93 100 05/27/25 19:00 68 15 202/98 98 05/27/25 18:50 98.2 F 66 12 212/96 99 05/27/25 18:43 65 05/27/25 18:24 65 20 207/95 97 05/27/25 18:00 62 24 207/106 99 05/27/25 17:23 68 24 217/107 97 05/27/25 17:00 67 24 220/106 99 05/27/25 16:30 62 22 207/99 99 05/27/25 16:00 61 22 195/86 99 05/27/25 15:29 98.5 F 64 24 207/99 99 Intake and Output 05/27/25 05/27/25 05/28/25 14:59 22:59 06:59 Intake Total 519.055 35.256 Output Total 6500 0 Balance -5980.945 35.256 Intake: Intake, IV Titration 19.055 35.256 Amount Clevidipine Butyrate 25 6.967 mg In Empty Bag 1 bag @ 1 MG/HR 2 mls/hr IV .Q24H [facility] Rx#:[id number] Insulin Regular 100 unit 19.055 28.289 In Sodium Chloride 0.9% 100 ml @ 0.1 UNITS/KG/HR 6.872 mls/hr IV .[id number] [facility] Rx#:[id number] Hemodialysis 500 Output: Urine 0 0 Hemodialysis 3500 Hemodialysis Net Amount 3000 Other: Weight 68.039 kg GENERAL EXAM: Alert, 35-year-old female, comfortable in no apparent distress. HEAD: Normocephalic and atraumatic EYES: Normal reaction of pupils, equal size. NOSE: Clear with pink turbinates. THROAT: No erythema or exudates. NECK: No masses, no JVD. CHEST: No chest wall deformity. LUNGS: Equal air entry with minimal bibasilar inspiratory crackles. On 2 L/min nasal cannula. No conversational dyspnea or accessory muscle use.. CVS: S1 and S2 normal with no audible murmur, regular rhythm. No extra heart so unds ABDOMEN: No hepatosplenomegaly, active bowel sounds, no guarding or rigidity. SPINE: No scoliosis or deformity SKIN: No rashes CENTRAL NERVOUS SYSTEM: Alert and oriented x 3, cranial nerves II through XII intact, no focal deficits, tone is normal in all 4 extremities. EXTREMITIES: There is no peripheral edema, clubbing, or cyanosis. Peripheral pulses are intact. Results - Laboratory Findings CBC and BMP: 05/28/25 05:45 05/28/25 05:45 PT/INR, D-dimer PT 13.8 sec (10.0-12.5) H 05/27/25 15:52 INR 1.3 (<1.2) H 05/27/25 15:52 Abnormal lab findings: Abnormal Labs 05/27/25 05/27/25 05/27/25 15:52 15:52 15:52 WBC 10.32 H RBC 2.53 L Hgb 8.5 L Hct 25.4 L MCV 100.4 H MCH 33.6 H Immature Gran # 0.08 H Neutrophils # 8.22 H Basophils # 0.11 H PT 13.8 H INR 1.3 H Sodium 115 L* Potassium 6.8 H* Chloride 79 L Carbon Dioxide 21 L BUN 49 H Creatinine 4.13 H Glucose 961 H* POC Glucose (mg/dL) Plasma Lactic Acid Christopher AST 59 H ALT 86 H Alkaline Phosphatase 349 H Total Protein 6.0 L 05/27/25 05/27/25 05/27/25 15:52 18:28 20:00 WBC RBC Hgb Hct MCV MCH Immature Gran # Neutrophils # Basophils # PT INR Sodium 126 L Potassium Chloride 84 L Carbon Dioxide BUN 30 H Creatinine 2.91 H Glucose 486 H POC Glucose (mg/dL) >600 H* Plasma Lactic Acid Christopher 2.8 H* AST ALT Alkaline Phosphatase Total Protein 05/27/25 05/27/25 05/27/25 20:00 20:02 21:04 WBC RBC Hgb Hct MCV MCH Immature Gran # Neutrophils # Basophils # PT INR Sodium Potassium Chloride Carbon Dioxide BUN Creatinine Glucose POC Glucose (mg/dL) 490 H 400 H Plasma Lactic Acid Christopher 2.4 H* AST ALT Alkaline Phosphatase Total Protein 05/27/25 05/27/25 05/27/25 22:01 23:08 23:18 WBC RBC Hgb Hct MCV MCH Immature Gran # Neutrophils # Basophils # PT INR Sodium Potassium Chloride Carbon Dioxide BUN Creatinine Glucose POC Glucose (mg/dL) 354 H 267 H Plasma Lactic Acid Christopher 2.5 H* AST ALT Alkaline Phosphatase Total Protein 05/27/25 05/28/25 05/28/25 23:21 00:05 01:01 WBC RBC Hgb Hct MCV MCH Immature Gran # Neutrophils # Basophils # PT INR Sodium 126 L Potassium Chloride 86 L Carbon Dioxide BUN 33 H Creatinine 3.52 H Glucose 249 H POC Glucose (mg/dL) 156 H 120 H Plasma Lactic Acid Christopher AST ALT Alkaline Phosphatase Total Protein - Diagnostic Findings Chest x-ray: image reviewed Assessment and Plan Assessment: Acute diabetic ketoacidosis, blood glucose of 961, serum bicarb 21, anion gap 16, acetone positive; previously on DKA protocol Hypertensive emergency, will start this patient on clevidipine infusion Acute pulmonary edema Acute hypoxemic respiratory failure, currently on 2 L/min nasal cannula, chest x-ray showing acute pulmonary edema Diabetes mellitus, insulin-dependent End-stage renal disease, maintained on hemodialysis 4 times a week, patient denies missing any hemodialysis sessions Severe hyperkalemia, improved Hypervolemic hyponatremia Anemia of chronic disease History of CVA/TIA History of optic neuritis history of hypothyroidism Plan: Patient's medications, labs, chest x-ray reviewed Transition of DKA protocol to subcutaneous insulin Continue supplemental oxygen, currently on 2 L/min nasal cannula Nephrology consulted for hemodialysis management; patient did have urgent hemodialysis yesterday, and a total of 3 L was removed Start patient on Cleviprex drip for refractory hypertension Home antihypertensive medications have been resumed including Procardia XL 90 mg twice daily, Imdur 120 mg p.o. daily, Catapres 0.3 mg p.o. 3 times daily, and Coreg 50 mg p.o. twice daily. Patient will continue to be monitored in the intensive care unit, as she is severely hypertensive at the moment. I have personally seen and examined the patient, performed the documentation and the assessment and plan as written. Number of minutes spent on the visit:25 This is a joint evaluation that was done along with the nurse practitioner. The patient was seen and evaluated. His evaluation was done and 35 minutes. The patient came into the intensive care unit for an acute DKA and hypertensive urgency/emergency. The patient has been taken off the insulin drip and the patient is currently on Lantus insulin 11 units twice daily and 8 units of NovoLog with meals and his scale coverage. The anion gap metabolic acidosis recovered and the patient's most recent electrolytes show a gap of 11 with a serum bicarb of 30. Potassium is at 4.4. The blood pressure is under good control. The patient is currently off Cleviprex. She is currently on 2 L of oxygen by nasal cannula. She is undergoing hemodialysis today. She is known to have chronic nausea. Insert BP control, the patient is on Catapres 0.3 mg 3 times daily, Coreg 50 mg twice daily and Procardia XL 90 mg p.o. daily. Rest of the home medication resumed. She is awake and alert and communicating. No other significant events overnight. Will gradually Amaro her diet. Will move her to a medical floor as long as the patient remains stable post hemodialysis. Currently on 2 L of oxygen by nasal cannula. Time with Patient: Greater than 30
[2025-05-28] MEDS: INSULIN NPH 100 UNIT/ML 10 ML VIAL SQ ONE (01:59)
[2025-05-28] MEDS ORDERED: DEXTROSE 50% SYRINGE 50 ML IVP PRN (02:07)
[2025-05-28] MEDS: DEXTROSE 50% SYRINGE 50 ML IVP PRN (02:12)
[2025-05-28 02:15] LABS: Glucose,Whole Blood 65 mg/dL (70-110)
[2025-05-28] MEDS: INSULIN LISPRO (HumaLOG) 100 UNIT/ML 10 mL VL SQ SCH ×3 (02:20→13:09)
[2025-05-28 02:41] LABS: Glucose,Whole Blood 131 mg/dL (70-110)
[2025-05-28 04:01] LABS: Glucose,Whole Blood 101 mg/dL (70-110)
[2025-05-28 05:44] LABS: Glucose,Whole Blood 87 mg/dL (70-110)
[2025-05-28 06:22] LABS: Basophils # (A) 0.12 10*3/uL (0.00-0.10); Basophils % (A) 1.2 %; Eosinophils # (A) 0.94 10*3/uL (0.04-0.35); Eosinophils % (A) 9.2 %; HCT 24.8 % (37.2-46.3); HGB 8.3 g/dL (12.0-15.0); Lymphocytes # (A) 1.73 10*3/uL (0.90-5.00); Lymphocytes % (A) 16.9 %; MCH 32.4 pg (27.0-32.0); MCHC 33.5 g/dL (32.0-37.0); MCV 96.9 fL (80.0-97.0); Monocytes # (A) 0.69 10*3/uL (0.20-1.00); Monocytes % (A) 6.7 %; Neutrophils # (A) 6.69 10*3/uL (1.80-7.70); Neutrophils % (A) 65.4 %; Platelet Count 240 10*3/uL (140-440); RBC 2.56 10*6/uL (4.10-5.20); RDW 16.8 % (11.5-14.5); WBC 10.23 10*3/uL (4.50-10.00)
[2025-05-28 06:39] LABS: Glucose,Whole Blood 96 mg/dL (70-110)
[2025-05-28] MEDS: INSULIN GLARGINE (LANTUS) 100 UNIT/ML SYR SQ SCH (06:44)
[2025-05-28 06:49] LABS: African American GFR (CKD) 16 (>60 ml/min/1.73 sqM); Anion Gap 11 mmol/L; Blood Urea Nitrogen 35 mg/dL (7-17); Calcium 9.4 mg/dL (8.4-10.2); Carbon Dioxide 30 mmol/L (22-30); Chloride 87 mmol/L (98-107); Glucose 90 mg/dL (74-99); Non-African American GFR(CKD) 14 (>60 ml/min/1.73 sqM); Potassium 4.4 mmol/L (3.5-5.1); Sodium 128 mmol/L (137-145)
[2025-05-28] MEDS ORDERED: LIDOCAINE 4% CREAM 5 GM TUBE TOPICAL PRN (07:50)
[2025-05-28] MEDS: ALPRAZolam 0.25 MG TAB PO PRN (08:01)
[2025-05-28] MEDS: diphenhydrAMINE 50 MG/ML 1 ML VIAL IVP PRN (08:01)
--- NOTE | 2025-05-28 09:33 | P.NPCON ---
History of Present Illness - Reason for Consult end stage renal disease - History of Present Illness Reason for consultation: End-stage renal disease History of present illness: Patient is a 35-year-old female seen in renal consultation for end-stage renal disease. She is maintained on hemodialysis on Wednesday. She denies missing any dialysis treatments. Patient states yesterday morning her blood glucose was near 350 and then later in the afternoon it was very high and could not be read by her meter. She came to the hospital for further care. Blood glucose on admission was 961. She was started on insulin drip which is now discontinued. She is currently off IV fluids but did receive IV fluids on admission. Potassium was elevated on admission and she did undergo hemodialysis yesterday with 3 L ultrafiltration. She admits to nausea yesterday but denies any vomiting. Denies eating high carb meal. Blood pressures currently on the lower end. She is on 2 L nasal cannula. She is oliguric. Vital signs are stable. General: No acute distress. HEENT: On nasal cannula. LUNGS: No audible rhonchi or wheezes. HEART: Rate and Rhythm are regular. ABDOMEN: Nontender. EXTREMITITES: No edema. 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 Past Anesthesia/Blood Transfusion Reactions: Previous Problems w/ Anesthesia Additional Past Anesthesia/Blood Transfusion Reaction / Comment(s): confusion Past Psychological History: Anxiety, Depression Smoking Status: Current some day smoker Past Alcohol Use History: None Reported Additional Past Alcohol Use History / Comment(s): Patient states she smokes a half a pack over 3-4 days but is trying to quit Past Drug Use History: Marijuana - Past Family History Father History Unknown: Yes Family Medical History: Unable to Obtain Mother History Unknown: Yes Family Medical History: No Reported History Grandfather History Unknown: Yes Family Medical History: Coronary Artery Disease (CAD) Additional Family Medical History / Comment(s): Diabetes mellitus type 2 Medications and Allergies Home Medications Medication Instructions Recorded Confirmed Type Docusate [Colace] 100 mg PO DAILY@0800 02/05/24 05/27/25 History Lidocaine 4% Patch 1 patch TOPICAL DAILY@00 02/05/24 05/27/25 History Ipratropium-Albuterol Nebulize 3 ml INHALATION RT-TID PRN each 02/14/24 05/27/25 Rx [Duoneb 0.5 mg-3 mg/3 ml Soln] polyethylene glycoL 3350 [Miralax] 17 gm PO AC-LUNCH #527 gm 02/14/24 05/27/25 Rx Acetaminophen [Tylenol] 650 mg PO Q4H PRN 02/18/24 05/27/25 History Biotene Dry Mouth/Throat 10 ml PO BID PRN 02/18/24 05/27/25 History Melatonin 1 mg PO HS tab 02/25/24 05/27/25 Rx Loratadine [Claritin] 5 mg PO DAILY tab 03/30/24 05/27/25 Rx Aspirin 81 mg PO DAILY@0800 #30 tab 05/18/24 05/27/25 Rx Famotidine [Pepcid] 20 mg PO BID #60 tab 07/11/24 05/27/25 Rx Levothyroxine Sodium [Synthroid] 175 mcg PO DAILY@0600 08/14/24 05/27/25 History Sertraline [Zoloft] 200 mg PO DAILY@0800 08/14/24 05/27/25 History Folic Acid/Vit B Complex and C 0.8 mg PO DAILY 12/20/24 05/27/25 History [Davina-Mayte Tablet] traZODone HCL [Desyrel] 50 mg PO HS #20 tab 01/01/25 05/27/25 Rx Isosorbide Mononitrate ER [Imdur] 120 mg PO DAILY #60 tab 01/02/25 05/27/25 Rx Gabapentin [Neurontin] 100 mg PO BID 30 Days #60 cap 01/03/25 05/27/25 Rx Linagliptin [Tradjenta] 5 mg PO DAILY #30 tab 01/03/25 05/27/25 Rx Insulin Lispro [humaLOG Kwikpen] See Protocol SQ AC-TID 01/22/25 05/27/25 History cloNIDine HCL [Catapres] 0.3 mg PO TID 01/22/25 05/27/25 History carvediloL [Coreg] 50 mg PO BID #120 tablet 02/15/25 05/27/25 Rx Calcium Acetate [PhosLo] 1,334 mg PO TID-W/MEALS 30 Days 02/19/25 05/27/25 Rx #360 tab Ipratropium-Albuterol Nebulize 3 ml INHALATION RT-TID #100 each 02/19/25 05/27/25 Rx [Duoneb 0.5 mg-3 mg/3 ml Soln] ALPRAZolam [Xanax] 0.25 mg PO BID PRN 02/26/25 05/27/25 History Divalproex Sodium [Depakote] 500 mg PO BID@0800,1700 02/26/25 05/27/25 History Lidocaine 5% Cream 1 applic TOPICAL MOTUWETHSA 02/26/25 05/27/25 History Methoxy Peg-Epoetin Beta [Mircera] 100 mcg SQ Q14D 02/26/25 05/27/25 History Insulin Glargine (Lantus) [Lantus 11 unit SQ BID #0 03/18/25 05/27/25 Rx Vial] oxyCODONE HCL/ACETAMINOPHEN 1 tab PO DAILY PRN 04/16/25 05/27/25 History [Percocet 10-325 mg] hydrOXYzine HCL [Atarax] 25 mg PO TID PRN #10 tab 04/24/25 05/27/25 Rx Sodium Zirconium Cyclosilicate 10 gm PO DAILY #30 04/27/25 05/27/25 Rx [Lokelma] NIFEdipine XL [Procardia XL] 90 mg PO Q12HR #60 tab 05/07/25 05/27/25 Rx Ondansetron Odt [Zofran ODT] 4 mg PO Q8HR PRN #10 tab 05/07/25 05/27/25 Rx Pantoprazole [Protonix] 40 mg PO AC-BRKFST #30 tab 05/07/25 05/27/25 Rx INSULIN LISPRO (HumaLOG) [HumaLOG] 8 unit SQ AC-TID #0 each 05/17/25 05/27/25 Rx Mirtazapine 30 mg PO HS 05/19/25 05/27/25 History Allergies Allergy/AdvReac Type Severity Reaction Status Date / Time propoxyphene Allergy Rash/Hives Verified 05/27/25 15:36 [From Darvocet-N] tramadol Allergy Anaphylaxis Verified 05/27/25 15:36 ampicillin [From Unasyn] AdvReac Itching Verified 05/27/25 15:36 ibuprofen [From Motrin] AdvReac unable to Verified 05/27/25 15:36 take due to kidney disease sulbactam [From Unasyn] AdvReac Itching Verified 05/27/25 15:36 venom-honey bee AdvReac passes out Verified 05/27/25 15:36 [bee venom (honey bee)] Physical Exam Vitals: Vital Signs Temp Pulse Pulse Resp BP BP Pulse Ox 05/28/25 09:00 57 L 18 113/72 100 05/28/25 08:00 97.5 F L 61 17 111/69 99 05/28/25 07:00 61 9 L 104/60 05/28/25 06:00 56 L 12 99/61 97 05/28/25 05:00 56 L 12 97/56 98 05/28/25 04:00 97.5 F L 58 L 16 111/65 92 L 05/28/25 03:00 57 L 14 102/71 96 05/28/25 02:00 59 L 14 121/77 96 05/28/25 01:00 61 14 124/80 100 05/28/25 00:29 64 14 196/99 100 05/28/25 00:00 98.2 F 62 12 187/95 100 05/27/25 23:00 67 14 203/109 97 05/27/25 22:00 66 14 201/105 99 05/27/25 21:00 65 15 217/104 99 05/27/25 20:55 98.2 F 66 18 196/96 05/27/25 20:00 98.2 F 69 18 191/93 100 05/27/25 19:00 68 15 202/98 98 05/27/25 18:50 98.2 F 66 12 212/96 99 05/27/25 18:43 65 05/27/25 18:24 65 20 207/95 97 05/27/25 18:00 62 24 207/106 99 05/27/25 17:23 68 24 217/107 97 05/27/25 17:00 67 24 220/106 99 05/27/25 16:30 62 22 207/99 99 05/27/25 16:00 61 22 195/86 99 05/27/25 15:29 98.5 F 64 24 207/99 99 Intake and Output 05/27/25 05/28/25 05/28/25 22:59 06:59 14:59 Intake Total 519.055 39.423 Output Total 6500 0 0 Balance -5980.945 39.423 0 Intake: Intake, IV Titration 19.055 39.423 Amount Clevidipine Butyrate 25 11.134 mg In Empty Bag 1 bag @ 1 MG/HR 2 mls/hr IV .Q24H [facility] Rx#:[id number] Insulin Regular 100 unit 19.055 28.289 In Sodium Chloride 0.9% 100 ml @ 0.1 UNITS/KG/HR 6.872 mls/hr IV .[id number] [facility] Rx#:[id number] Hemodialysis 500 Output: Urine 0 0 0 Hemodialysis 3500 Hemodialysis Net Amount 3000 Other: Weight 68.039 kg 72.5 kg Results - Lab Results Most recent lab results Calcium 9.4 mg/dL (8.4-10.2) 05/28/25 05:45 Phosphorus 4.4 mg/dL (2.5-4.5) 05/27/25 23:21 Magnesium 1.9 mg/dL (1.6-2.3) 05/27/25 15:52 05/28/25 05:45 05/28/25 05:45 Assessment and Plan Plan: Assessment: 1. End-stage renal disease maintained on hemodialysis on Wednesday. 2. DKA status post insulin drip. Patient has brittle diabetes. 3. Hypertension with chronic kidney disease. Currently on the lower end. 4. History of pericardial effusion. 5. Metabolic acidosis secondary to DKA and lactic acidosis. Improved. 6. Anemia of chronic kidney disease. Plan: Currently seen while undergoing hemodialysis. Check iron studies. Stressed compliance with low-sodium diet and fluid restriction of less than 50 ounces per day. Thank you for the consultation. I will continue to follow the patient with you during her hospital stay.
[2025-05-28 10:12] LABS: Glucose,Whole Blood 91 mg/dL (70-110)
[2025-05-28 11:06] LABS: Glucose,Whole Blood 86 mg/dL (70-110)
[2025-05-28 13:09] LABS: Glucose,Whole Blood 88 mg/dL (70-110)
[2025-05-28] MEDS: DIVALPROEX 500 MG TABLET.DR PO SCH (13:09)
[2025-05-28] MEDS: GABAPENTIN 100 MG CAP PO SCH (13:14)
[2025-05-28] MEDS: DOCUSATE 100 MG CAP PO SCH (13:14)
[2025-05-28] MEDS: FAMOTIDINE 20 MG TAB PO SCH (13:14)
[2025-05-28] MEDS: ISOSORBIDE MONONITRATE ER 60 MG TAB.ER.24H PO SCH (13:14)
[2025-05-28 15:01] LABS: Glucose,Whole Blood 185 mg/dL (70-110)
--- NOTE | 2025-05-28 15:24 | P.HPIM ---
History of Present Illness 35-year-old female known to me from her medical hospitalization came in with nausea vomiting found to be in DKA with mild metabolic acidosis anion gap of 16. Patient was on IV insulin anion gap closed patient is transition to subcutan eous insulin although her blood sugars have bit low. Patient blood pressure was high on admission. Patient is end-stage renal disease hemodialysis dependent patient was also volume overloaded and had an emergent hemodialysis with removal of 3 L of fluid. LFTs are minimally elevated because of hepatic congestion. Patient is complaining of generalized bodyaches. REVIEW OF SYSTEMS: All other systems are negative except those mentioned in the HPI PHYSICAL EXAMINATION: GENERAL: The patient is alert and oriented x3, not in any acute distress. Well developed, well nourished. HEENT: Pupils are round and equally reacting to light. EOMI. No scleral icterus. No conjunctival pallor. Normocephalic, atraumatic. No pharyngeal erythema. No thyromegaly. CARDIOVASCULAR: S1 and S2 present. No murmurs, rubs, or gallops. PULMONARY: Chest is clear to auscultation, no wheezing or crackles. ABDOMEN: Soft, nontender, nondistended, normoactive bowel sounds. No palpable organomegaly. MUSCULOSKELETAL: No joint swelling or deformity. EXTREMITIES: No cyanosis, clubbing, or pedal edema. NEUROLOGICAL: Gross neurological examination did not reveal any focal deficits. SKIN: No rashes. Assessment and plan -Diabetic ketoacidosis: Anion gap resolved patient is transition to subcutaneous insulin will decrease the dose of Premeal insulin from 8 units to 6 units continue 11 units twice a day of Lantus along with sliding scale insulin. - Hyponatremia: Secondary to end-stage renal disease mainly there is a component of hyperosmolar hyponatremia from elevated blood sugars - Volume overload, acute pulmonary edema secondary to end-stage renal disease status post hemodialysis patient is presently on 2 L of oxygen - Acute hypoxic respiratory failure secondary to pulmonary edema improving at this time - Type 2 diabetes mellitus uncontrolled low blood sugars management as mentioned above - Hyperkalemia patient always has issues with hyperkalemia patient is on regular scheduled Lokelma along with hemodialysis patient did undergo hemodialysis - Anemia of chronic kidney disease - Hypothyroidism - Leukocytosis reactive secondary to DKA Accelerated hypertension: Patient was resumed on home regimen with improved blood pressures - Diabetic peripheral neuropathy - Seizure disorder for which patient is on Depakote DVT prophylaxis: Subcutaneous heparin Past Medical History Past Medical History: Diabetes Mellitus, GERD/Reflux, Hypertension, Renal Disease, Seizure Disorder, Thyroid Disorder Additional Past Medical History / Comment(s): Neuropathy, last seizure 2020, gastroparesis, headaches with dialysis, states "fast heart rate" since giving ., receives Hemodialysis Wednesday- and Saturdays at [facility] right chest hemodialysis catheter., severe HTN, hx of c-diff 2013., 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 Past Anesthesia/Blood Transfusion Reactions: Previous Problems w/ Anesthesia Additional Past Anesthesia/Blood Transfusion Reaction / Comment(s): confusion Past Psychological History: Anxiety, Depression Smoking Status: Current some day smoker Past Alcohol Use History: None Reported Additional Past Alcohol Use History / Comment(s): Patient states she smokes a half a pack over 3-4 days but is trying to quit Past Drug Use History: Marijuana - Past Family History Father History Unknown: Yes Family Medical History: Unable to Obtain Mother History Unknown: Yes Family Medical History: No Reported History Grandfather History Unknown: Yes Family Medical History: Coronary Artery Disease (CAD) Additional Family Medical History / Comment(s): Diabetes mellitus type 2 Medications and Allergies Home Medications Medication Instructions Recorded Confirmed Type Docusate [Colace] 100 mg PO DAILY@0800 02/05/24 05/27/25 History Lidocaine 4% Patch 1 patch TOPICAL DAILY@79902/05/24 05/27/25 History Ipratropium-Albuterol Nebulize 3 ml INHALATION RT-TID PRN each 02/14/24 05/27/25 Rx [Duoneb 0.5 mg-3 mg/3 ml Soln] polyethylene glycoL 3350 [Miralax] 17 gm PO AC-LUNCH #527 gm 02/14/24 05/27/25 Rx Acetaminophen [Tylenol] 650 mg PO Q4H PRN 02/18/24 05/27/25 History Biotene Dry Mouth/Throat 10 ml PO BID PRN 02/18/24 05/27/25 History Melatonin 1 mg PO HS tab 02/25/24 05/27/25 Rx Loratadine [Claritin] 5 mg PO DAILY tab 03/30/24 05/27/25 Rx Aspirin 81 mg PO DAILY@0800 #30 tab 05/18/24 05/27/25 Rx Famotidine [Pepcid] 20 mg PO BID #60 tab 07/11/24 05/27/25 Rx Levothyroxine Sodium [Synthroid] 175 mcg PO DAILY@0600 08/14/24 05/27/25 History Sertraline [Zoloft] 200 mg PO DAILY@0800 08/14/24 05/27/25 History Folic Acid/Vit B Complex and C 0.8 mg PO DAILY 12/20/24 05/27/25 History [Davina-Mayte Tablet] traZODone HCL [Desyrel] 50 mg PO HS #20 tab 01/01/25 05/27/25 Rx Isosorbide Mononitrate ER [Imdur] 120 mg PO DAILY #60 tab 01/02/25 05/27/25 Rx Gabapentin [Neurontin] 100 mg PO BID 30 Days #60 cap 01/03/25 05/27/25 Rx Linagliptin [Tradjenta] 5 mg PO DAILY #30 tab 01/03/25 05/27/25 Rx Insulin Lispro [humaLOG Kwikpen] See Protocol SQ AC-TID 01/22/25 05/27/25 History cloNIDine HCL [Catapres] 0.3 mg PO TID 01/22/25 05/27/25 History carvediloL [Coreg] 50 mg PO BID #120 tablet 02/15/25 05/27/25 Rx Calcium Acetate [PhosLo] 1,334 mg PO TID-W/MEALS 30 Days 02/19/25 05/27/25 Rx #360 tab Ipratropium-Albuterol Nebulize 3 ml INHALATION RT-TID #100 each 02/19/25 05/27/25 Rx [Duoneb 0.5 mg-3 mg/3 ml Soln] ALPRAZolam [Xanax] 0.25 mg PO BID PRN 02/26/25 05/27/25 History Divalproex Sodium [Depakote] 500 mg PO BID@0800,1700 02/26/25 05/27/25 History Lidocaine 5% Cream 1 applic TOPICAL MOTUWETHSA 02/26/25 05/27/25 History Methoxy Peg-Epoetin Beta [Mircera] 100 mcg SQ Q14D 02/26/25 05/27/25 History Insulin Glargine (Lantus) [Lantus 11 unit SQ BID #0 03/18/25 05/27/25 Rx Vial] oxyCODONE HCL/ACETAMINOPHEN 1 tab PO DAILY PRN 04/16/25 05/27/25 History [Percocet 10-325 mg] hydrOXYzine HCL [Atarax] 25 mg PO TID PRN #10 tab 04/24/25 05/27/25 Rx Sodium Zirconium Cyclosilicate 10 gm PO DAILY #30 04/27/25 05/27/25 Rx [Lokelma] NIFEdipine XL [Procardia XL] 90 mg PO Q12HR #60 tab 05/07/25 05/27/25 Rx Ondansetron Odt [Zofran ODT] 4 mg PO Q8HR PRN #10 tab 05/07/25 05/27/25 Rx Pantoprazole [Protonix] 40 mg PO AC-BRKFST #30 tab 05/07/25 05/27/25 Rx INSULIN LISPRO (HumaLOG) [HumaLOG] 8 unit SQ AC-TID #0 each 05/17/25 05/27/25 Rx Mirtazapine 30 mg PO HS 05/19/25 05/27/25 History Allergies Allergy/AdvReac Type Severity Reaction Status Date / Time propoxyphene Allergy Rash/Hives Verified 05/27/25 15:36 [From Darvocet-N] tramadol Allergy Anaphylaxis Verified 05/27/25 15:36 ampicillin [From Unasyn] AdvReac Itching Verified 05/27/25 15:36 ibuprofen [From Motrin] AdvReac unable to Verified 05/27/25 15:36 take due to kidney disease sulbactam [From Unasyn] AdvReac Itching Verified 05/27/25 15:36 venom-honey bee AdvReac passes out Verified 05/27/25 15:36 [bee venom (honey bee)] Physical Exam Vitals: Vital Signs Temp Pulse Pulse Pulse Resp BP BP 05/28/25 15:00 70 12 05/28/25 14:14 98 F 64 16 176/91 05/28/25 14:00 74 12 157/85 05/28/25 13:00 67 12 176/91 05/28/25 12:00 66 20 156/83 05/28/25 11:00 61 148/80 05/28/25 10:00 60 14 135/77 05/28/25 09:00 57 L 18 113/72 05/28/25 08:00 97.5 F L 61 17 111/69 05/28/25 07:00 61 9 L 104/60 05/28/25 06:00 56 L 12 99/61 05/28/25 05:00 56 L 12 97/56 05/28/25 04:00 97.5 F L 58 L 16 111/65 05/28/25 03:00 57 L 14 102/71 05/28/25 02:00 59 L 14 121/77 05/28/25 01:00 61 14 124/80 05/28/25 00:29 64 14 196/99 05/28/25 00:00 98.2 F 62 12 187/95 05/27/25 23:00 67 14 203/109 05/27/25 22:00 66 14 201/105 05/27/25 21:00 65 15 217/104 05/27/25 20:55 98.2 F 66 18 196/96 05/27/25 20:00 98.2 F 69 18 191/93 05/27/25 19:00 68 15 202/98 05/27/25 18:50 98.2 F 66 12 212/96 05/27/25 18:43 65 05/27/25 18:24 65 20 207/95 05/27/25 18:00 62 24 207/106 05/27/25 17:23 68 24 217/107 05/27/25 17:00 67 24 220/106 05/27/25 16:30 62 22 207/99 05/27/25 16:00 61 22 195/86 05/27/25 15:29 98.5 F 64 24 207/99 Pulse Ox 05/28/25 15:00 99 05/28/25 14:14 99 05/28/25 14:00 93 L 05/28/25 13:00 99 05/28/25 12:00 99 05/28/25 11:00 99 05/28/25 10:00 99 05/28/25 09:00 100 05/28/25 08:00 99 05/28/25 07:00 05/28/25 06:00 97 05/28/25 05:00 98 05/28/25 04:00 92 L 05/28/25 03:00 96 05/28/25 02:00 96 05/28/25 01:00 100 05/28/25 00:29 100 05/28/25 00:00 100 05/27/25 23:00 97 05/27/25 22:00 99 05/27/25 21:00 99 05/27/25 20:55 05/27/25 20:00 100 05/27/25 19:00 98 05/27/25 18:50 99 05/27/25 18:43 05/27/25 18:24 97 05/27/25 18:00 99 05/27/25 17:23 97 05/27/25 17:00 99 05/27/25 16:30 99 05/27/25 16:00 99 05/27/25 15:29 99 Intake and Output 05/28/25 05/28/25 05/28/25 06:59 14:59 22:59 Intake Total 39.423 3000 Output Total 0 3000 Balance 39.423 0 Intake: Intake, IV Titration 39.423 Amount Clevidipine Butyrate 25 11.134 mg In Empty Bag 1 bag @ 1 MG/HR 2 mls/hr IV .Q24H VY Rx#:[id number] Insulin Regular 100 unit 28.289 In Sodium Chloride 0.9% 100 ml @ 0.1 UNITS/KG/HR 6.872 mls/hr IV .[id number] VY Rx#:[id number] Hemodialysis 3000 Output: Urine 0 0 Hemodialysis 500 Hemodialysis Net Amount 2500 Other: Weight 72.5 kg 72.5 kg Results CBC & Chem 7: 05/28/25 05:45 05/28/25 05:45 Labs: Abnormal Lab Results - Last 24 Hours (Table) 05/27/25 05/27/25 05/27/25 Range/Units 15:52 15:52 15:52 WBC 10.32 H (4.50-10.00) 10*3/uL RBC 2.53 L (4.10-5.20) 10*6/uL Hgb 8.5 L (12.0-15.0) g/dL Hct 25.4 L (37.2-46.3) % MCV 100.4 H (80.0-97.0) fL MCH 33.6 H (27.0-32.0) pg Immature Gran # 0.08 H (0.00-0.04) 10*3/uL Neutrophils # 8.22 H (1.80-7.70) 10*3/uL Eosinophils # (0.04-0.35) 10*3/uL Basophils # 0.11 H (0.00-0.10) 10*3/uL PT 13.8 H (10.0-12.5) sec INR 1.3 H (<1.2) Sodium 115 L* (137-145) mmol/L Potassium 6.8 H* (3.5-5.1) mmol/L Chloride 79 L (98-107) mmol/L Carbon Dioxide 21 L (22-30) mmol/L BUN 49 H (7-17) mg/dL Creatinine 4.13 H (0.52-1.04) mg/dL Glucose 961 H* (74-99) mg/dL POC Glucose (mg/dL) (70-110) mg/dL Osmolality (275-295) mOsm/kg Plasma Lactic Acid Christopher (0.7-2.0) mmol/L AST 59 H (14-36) U/L ALT 86 H (4-34) U/L Alkaline Phosphatase 349 H (38-126) U/L Total Protein 6.0 L (6.3-8.2) g/dL 05/27/25 05/27/25 05/27/25 Range/Units 15:52 15:52 18:28 WBC (4.50-10.00) 10*3/uL RBC (4.10-5.20) 10*6/uL Hgb (12.0-15.0) g/dL Hct (37.2-46.3) % MCV (80.0-97.0) fL MCH (27.0-32.0) pg Immature Gran # (0.00-0.04) 10*3/uL Neutrophils # (1.80-7.70) 10*3/uL Eosinophils # (0.04-0.35) 10*3/uL Basophils # (0.00-0.10) 10*3/uL PT (10.0-12.5) sec INR (<1.2) Sodium (137-145) mmol/L Potassium (3.5-5.1) mmol/L Chloride (98-107) mmol/L Carbon Dioxide (22-30) mmol/L BUN (7-17) mg/dL Creatinine (0.52-1.04) mg/dL Glucose (74-99) mg/dL POC Glucose (mg/dL) >600 H* (70-110) mg/dL Osmolality 314 H (275-295) mOsm/kg Plasma Lactic Acid Christopher 2.8 H* (0.7-2.0) mmol/L AST (14-36) U/L ALT (4-34) U/L Alkaline Phosphatase (38-126) U/L Total Protein (6.3-8.2) g/dL 05/27/25 05/27/25 05/27/25 Range/Units 20:00 20:00 20:02 WBC (4.50-10.00) 10*3/uL RBC (4.10-5.20) 10*6/uL Hgb (12.0-15.0) g/dL Hct (37.2-46.3) % MCV (80.0-97.0) fL MCH (27.0-32.0) pg Immature Gran # (0.00-0.04) 10*3/uL Neutrophils # (1.80-7.70) 10*3/uL Eosinophils # (0.04-0.35) 10*3/uL Basophils # (0.00-0.10) 10*3/uL PT (10.0-12.5) sec INR (<1.2) Sodium 126 L (137-145) mmol/L Potassium (3.5-5.1) mmol/L Chloride 84 L (98-107) mmol/L Carbon Dioxide (22-30) mmol/L BUN 30 H (7-17) mg/dL Creatinine 2.91 H (0.52-1.04) mg/dL Glucose 486 H (74-99) mg/dL POC Glucose (mg/dL) 490 H (70-110) mg/dL Osmolality (275-295) mOsm/kg Plasma Lactic Acid Christopher 2.4 H* (0.7-2.0) mmol/L AST (14-36) U/L ALT (4-34) U/L Alkaline Phosphatase (38-126) U/L Total Protein (6.3-8.2) g/dL 05/27/25 05/27/25 05/27/25 Range/Units 21:04 22:01 23:08 WBC (4.50-10.00) 10*3/uL RBC (4.10-5.20) 10*6/uL Hgb (12.0-15.0) g/dL Hct (37.2-46.3) % MCV (80.0-97.0) fL MCH (27.0-32.0) pg Immature Gran # (0.00-0.04) 10*3/uL Neutrophils # (1.80-7.70) 10*3/uL Eosinophils # (0.04-0.35) 10*3/uL Basophils # (0.00-0.10) 10*3/uL PT (10.0-12.5) sec INR (<1.2) Sodium (137-145) mmol/L Potassium (3.5-5.1) mmol/L Chloride (98-107) mmol/L Carbon Dioxide (22-30) mmol/L BUN (7-17) mg/dL Creatinine (0.52-1.04) mg/dL Glucose (74-99) mg/dL POC Glucose (mg/dL) 400 H 354 H 267 H (70-110) mg/dL Osmolality (275-295) mOsm/kg Plasma Lactic Acid Christopher (0.7-2.0) mmol/L AST (14-36) U/L ALT (4-34) U/L Alkaline Phosphatase (38-126) U/L Total Protein (6.3-8.2) g/dL 05/27/25 05/27/25 05/28/25 Range/Units 23:18 23:21 00:05 WBC (4.50-10.00) 10*3/uL RBC (4.10-5.20) 10*6/uL Hgb (12.0-15.0) g/dL Hct (37.2-46.3) % MCV (80.0-97.0) fL MCH (27.0-32.0) pg Immature Gran # (0.00-0.04) 10*3/uL Neutrophils # (1.80-7.70) 10*3/uL Eosinophils # (0.04-0.35) 10*3/uL Basophils # (0.00-0.10) 10*3/uL PT (10.0-12.5) sec INR (<1.2) Sodium 126 L (137-145) mmol/L Potassium (3.5-5.1) mmol/L Chloride 86 L (98-107) mmol/L Carbon Dioxide (22-30) mmol/L BUN 33 H (7-17) mg/dL Creatinine 3.52 H (0.52-1.04) mg/dL Glucose 249 H (74-99) mg/dL POC Glucose (mg/dL) 156 H (70-110) mg/dL Osmolality (275-295) mOsm/kg Plasma Lactic Acid Christopher 2.5 H* (0.7-2.0) mmol/L AST (14-36) U/L ALT (4-34) U/L Alkaline Phosphatase (38-126) U/L Total Protein (6.3-8.2) g/dL 05/28/25 05/28/25 05/28/25 Range/Units 01:01 02:04 02:40 WBC (4.50-10.00) 10*3/uL RBC (4.10-5.20) 10*6/uL Hgb (12.0-15.0) g/dL Hct (37.2-46.3) % MCV (80.0-97.0) fL MCH (27.0-32.0) pg Immature Gran # (0.00-0.04) 10*3/uL Neutrophils # (1.80-7.70) 10*3/uL Eosinophils # (0.04-0.35) 10*3/uL Basophils # (0.00-0.10) 10*3/uL PT (10.0-12.5) sec INR (<1.2) Sodium (137-145) mmol/L Potassium (3.5-5.1) mmol/L Chloride (98-107) mmol/L Carbon Dioxide (22-30) mmol/L BUN (7-17) mg/dL Creatinine (0.52-1.04) mg/dL Glucose (74-99) mg/dL POC Glucose (mg/dL) 120 H 65 L 131 H (70-110) mg/dL Osmolality (275-295) mOsm/kg Plasma Lactic Acid Christopher (0.7-2.0) mmol/L AST (14-36) U/L ALT (4-34) U/L Alkaline Phosphatase (38-126) U/L Total Protein (6.3-8.2) g/dL 05/28/25 05/28/25 05/28/25 Range/Units 05:45 05:45 14:59 WBC 10.23 H (4.50-10.00) 10*3/uL RBC 2.56 L (4.10-5.20) 10*6/uL Hgb 8.3 L (12.0-15.0) g/dL Hct 24.8 L (37.2-46.3) % MCV (80.0-97.0) fL MCH 32.4 H (27.0-32.0) pg Immature Gran # 0.06 H (0.00-0.04) 10*3/uL Neutrophils # (1.80-7.70) 10*3/uL Eosinophils # 0.94 H (0.04-0.35) 10*3/uL Basophils # 0.12 H (0.00-0.10) 10*3/uL PT (10.0-12.5) sec INR (<1.2) Sodium 128 L (137-145) mmol/L Potassium (3.5-5.1) mmol/L Chloride 87 L (98-107) mmol/L Carbon Dioxide (22-30) mmol/L BUN 35 H (7-17) mg/dL Creatinine 3.94 H (0.52-1.04) mg/dL Glucose (74-99) mg/dL POC Glucose (mg/dL) 185 H (70-110) mg/dL Osmolality (275-295) mOsm/kg Plasma Lactic Acid Christopher (0.7-2.0) mmol/L AST (14-36) U/L ALT (4-34) U/L Alkaline Phosphatase (38-126) U/L Total Protein (6.3-8.2) g/dL
[2025-05-28 16:59] LABS: Glucose,Whole Blood 225 mg/dL (70-110)
[2025-05-28] MEDS: HEPARIN SODIUM,PORCINE 5,000 UNIT/ML 1 ML VIAL SQ SCH (17:10)
[2025-05-28 20:54] LABS: Glucose,Whole Blood 387 mg/dL (70-110)
[2025-05-29 01:49] LABS: Glucose,Whole Blood 231 mg/dL (70-110)
[2025-05-29 05:42] LABS: Basophils # (A) 0.10 10*3/uL (0.00-0.10); Basophils % (A) 1.1 %; Eosinophils # (A) 0.84 10*3/uL (0.04-0.35); Eosinophils % (A) 8.9 %; HCT 26.1 % (37.2-46.3); HGB 8.7 g/dL (12.0-15.0); Lymphocytes # (A) 1.70 10*3/uL (0.90-5.00); Lymphocytes % (A) 17.9 %; MCH 33.5 pg (27.0-32.0); MCHC 33.3 g/dL (32.0-37.0); MCV 100.4 fL (80.0-97.0); Monocytes # (A) 0.63 10*3/uL (0.20-1.00); Monocytes % (A) 6.6 %; Neutrophils # (A) 6.18 10*3/uL (1.80-7.70); Neutrophils % (A) 65.1 %; Platelet Count 269 10*3/uL (140-440); RBC 2.60 10*6/uL (4.10-5.20); RDW 18.2 % (11.5-14.5); WBC 9.49 10*3/uL (4.50-10.00)
[2025-05-29 06:06] LABS: African American GFR (CKD) 18 (>60 ml/min/1.73 sqM); Anion Gap 9 mmol/L; Blood Urea Nitrogen 21 mg/dL (7-17); Calcium 9.5 mg/dL (8.4-10.2); Carbon Dioxide 32 mmol/L (22-30); Chloride 93 mmol/L (98-107); Glucose 76 mg/dL (74-99); Non-African American GFR(CKD) 16 (>60 ml/min/1.73 sqM); Potassium 4.3 mmol/L (3.5-5.1); Sodium 134 mmol/L (137-145)
[2025-05-29 06:30] LABS: Glucose,Whole Blood 113 mg/dL (70-110)
[2025-05-29] MEDS: CALCIUM ACETATE 667 MG TAB PO SCH (06:51)
[2025-05-29] MEDS: oxyCODONE-APAP 10-325MG 1 EACH TAB PO PRN (08:18)
--- NOTE | 2025-05-29 10:09 | P.PN ---
Subjective Patient is seen in follow-up for end-stage renal disease. No problems with dialysis yesterday. Blood glucose better controlled. Vital signs are stable. General: No acute distress. HEENT: Head exam is unremarkable. On nasal cannula. LUNGS: No audible rhonchi or wheezes. HEART: Rate and Rhythm are regular. ABDOMEN: Nontender. EXTREMITITES: No edema. Objective - Vital Signs Vital signs: Vital Signs Temp 97.6 F 05/29/25 08:00 Pulse 71 05/29/25 08:00 Resp 12 05/29/25 08:00 BP 114/75 05/29/25 08:00 Pulse Ox 98 05/29/25 08:00 FiO2 Intake & Output 05/28/25 05/29/25 05/29/25 18:59 06:59 18:59 Intake Total 3500 200 Output Total 3000 Balance 500 200 Weight 72.5 kg 72.7 kg Intake: Oral 500 Tube Feeding 200 Hemodialysis 3000 Output: Urine 0 Hemodialysis 500 Hemodialysis Net Amount 2500 Other: # Voids 0 - Labs CBC & Chem 7: 05/29/25 05:24 05/29/25 05:24 Labs: Abnormal Lab Results - Last 24 Hours (Table) 05/28/25 05/28/25 05/28/25 Range/Units 14:59 16:57 20:54 RBC (4.10-5.20) 10*6/uL Hgb (12.0-15.0) g/dL Hct (37.2-46.3) % MCV (80.0-97.0) fL MCH (27.0-32.0) pg Eosinophils # (0.04-0.35) 10*3/uL Sodium (137-145) mmol/L Chloride (98-107) mmol/L Carbon Dioxide (22-30) mmol/L BUN (7-17) mg/dL Creatinine (0.52-1.04) mg/dL POC Glucose (mg/dL) 185 H 225 H 387 H (70-110) mg/dL 05/29/25 05/29/25 05/29/25 Range/Units 01:47 05:24 05:24 RBC 2.60 L (4.10-5.20) 10*6/uL Hgb 8.7 L (12.0-15.0) g/dL Hct 26.1 L (37.2-46.3) % MCV 100.4 H (80.0-97.0) fL MCH 33.5 H (27.0-32.0) pg Eosinophils # 0.84 H (0.04-0.35) 10*3/uL Sodium 134 L (137-145) mmol/L Chloride 93 L (98-107) mmol/L Carbon Dioxide 32 H (22-30) mmol/L BUN 21 H (7-17) mg/dL Creatinine 3.63 H (0.52-1.04) mg/dL POC Glucose (mg/dL) 231 H (70-110) mg/dL 05/29/25 Range/Units 06:29 RBC (4.10-5.20) 10*6/uL Hgb (12.0-15.0) g/dL Hct (37.2-46.3) % MCV (80.0-97.0) fL MCH (27.0-32.0) pg Eosinophils # (0.04-0.35) 10*3/uL Sodium (137-145) mmol/L Chloride (98-107) mmol/L Carbon Dioxide (22-30) mmol/L BUN (7-17) mg/dL Creatinine (0.52-1.04) mg/dL POC Glucose (mg/dL) 113 H (70-110) mg/dL Assessment and Plan Plan: Assessment: 1. End-stage renal disease maintained on hemodialysis on Wednesday. 2. DKA status post insulin drip. Patient has brittle diabetes. 3. Hypertension with chronic kidney disease. Currently on the lower end. 4. History of pericardial effusion. 5. Metabolic acidosis secondary to DKA and lactic acidosis. Improved. 6. Anemia of chronic kidney disease. Plan: Hemodialysis today per her outpatient schedule. Follow-up iron studies. Stressed compliance with low-sodium diet and fluid restriction of less than 50 ounces per day.
[2025-05-29 11:06] LABS: Glucose,Whole Blood 181 mg/dL (70-110)
--- NOTE | 2025-05-29 13:33 | P.PN ---
Subjective Progress Note Date: 05/29/25 Patient is a 35-year-old white female with significant past medical history including uncontrolled hypertension, uncontrolled diabetes mellitus, end-stage renal disease (maintained on hemodialysis 4 times weekly), TIA/CVA, optic neuritis, among other things. Patient came to the emergency department yest erd afternoon with concerned of high blood sugars. Additionally, weak and fatigued. Nausea without vomiting. Blood sugar was found to be elevated at 961. Mild case of metabolic acidosis with a serum bicarb of 21 and anion gap of 16. Acetone positive. She was previously started on the DKA protocol. Her blood pressure is extremely hypertensive, currently 203/109 mmHg. Also, endorsing some shortness of breath. Chest x-ray consistent with pulmonary edema. She denies missing any of her antihypertensive medications. Denies missing any treatments of hemodialysis. Did receive a emergent hemodialysis treatment earlier yesterday, and a total of 3 L was removed. Most recent labs including a CBC with a WBC count of 10.3, hemoglobin 8.5 g/dL, platelets 244. CMP: Sodium 126, potassium 4.5, chloride 86, serum bicarb 28, anion gap 12, BUN 33, creatinine 3.52, glucose is currently down to 120. Lactic 2.5. LFTs mildly elevated. Troponin less than 0.012. Currently being seen in the intensive care unit. Alert and oriented. Nondistressed. She is on 2 L/min nasal cannula. Breathing has improved. Currently, her blood pressure is severely elevated at 203/109 mmHg. I asked the nurse to start this patient on Cleviprex. Her home antihypertensive medications have been resumed including Procardia XL 90 mg twice daily, Imdur 120 mg p.o. daily, Catapres 0.3 mg p.o. 3 times daily, and Coreg 50 mg p.o. twice daily. She denies any headache, vision changes, dizziness, chest pain, palpitations, edema. Her blood sugar improved. Denies any recent URI infections or sick contacts. States she has been compliant with her insulin therapy. No nausea or vomiting. A renal diet has been resumed. 05/29/2025, the patient is being seen for a follow-up. The patient is calm and comfortable and she is awake and alert. Some episodic nausea still present. She is currently on 2 L of oxygen by nasal cannula. No significant hyperglycemia. No hypoglycemia. The patient is on Lantus insulin 11 units twice daily and 6 units of NovoLog with meals. The patient underwent hemodialysis yesterday with a total of 2.5 L of ultrafiltration. White cell count at 9.4 with a hemoglobin 8.7 and a platelet count of 269. BUN is 21 with a creatinine of 3.3. Potassium level is at 4.3. Blood pressure is under adequate control and patient remains on clonidine 0.3 mg p.o. 3 times daily, Coreg 30 mg p.o. twice daily, Imdur 120 mg p.o. daily, nifedipine XL 90 mg p.o. twice a day. Rest of the medications are essentially unchanged. She is awake and alert and communicating. No other significant events overnight. Objective - Vital Signs Vital signs: Vital Signs Temp 97.6 F 05/29/25 08:00 Pulse 71 05/29/25 08:00 Resp 12 05/29/25 08:00 BP 114/75 05/29/25 08:00 Pulse Ox 98 05/29/25 08:00 FiO2 Intake & Output 05/28/25 05/29/25 05/29/25 18:59 06:59 18:59 Intake Total 3500 200 Output Total 3000 Balance 500 200 Weight 72.5 kg 72.7 kg Intake: Oral 500 Tube Feeding 200 Hemodialysis 3000 Output: Urine 0 Hemodialysis 500 Hemodialysis Net Amount 2500 Other: # Voids 0 - Exam GENERAL EXAM: Alert, 35-year-old female, comfortable in no apparent distress. HEAD: Normocephalic and atraumatic EYES: Normal reaction of pupils, equal size. NOSE: Clear with pink turbinates. THROAT: No erythema or exudates. NECK: No masses, no JVD. CHEST: No chest wall deformity. LUNGS: Equal air entry with minimal bibasilar inspiratory crackles. On 2 L/min nasal cannula. No conversational dyspnea or accessory muscle use.. CVS: S1 and S2 normal with no audible murmur, regular rhythm. No extra heart so unds ABDOMEN: No hepatosplenomegaly, active bowel sounds, no guarding or rigidity. SPINE: No scoliosis or deformity SKIN: No rashes CENTRAL NERVOUS SYSTEM: Alert and oriented x 3, cranial nerves II through XII intact, no focal deficits, tone is normal in all 4 extremities. EXTREMITIES: There is no peripheral edema, clubbing, or cyanosis. Peripheral pulses are intact. - Labs CBC & Chem 7: 05/29/25 05:24 05/29/25 05:24 Labs: Abnormal Lab Results - Last 24 Hours (Table) 05/28/25 05/28/25 05/28/25 Range/Units 14:59 16:57 20:54 RBC (4.10-5.20) 10*6/uL Hgb (12.0-15.0) g/dL Hct (37.2-46.3) % MCV (80.0-97.0) fL MCH (27.0-32.0) pg Eosinophils # (0.04-0.35) 10*3/uL Sodium (137-145) mmol/L Chloride (98-107) mmol/L Carbon Dioxide (22-30) mmol/L BUN (7-17) mg/dL Creatinine (0.52-1.04) mg/dL POC Glucose (mg/dL) 185 H 225 H 387 H (70-110) mg/dL 05/29/25 05/29/25 05/29/25 Range/Units 01:47 05:24 05:24 RBC 2.60 L (4.10-5.20) 10*6/uL Hgb 8.7 L (12.0-15.0) g/dL Hct 26.1 L (37.2-46.3) % MCV 100.4 H (80.0-97.0) fL MCH 33.5 H (27.0-32.0) pg Eosinophils # 0.84 H (0.04-0.35) 10*3/uL Sodium 134 L (137-145) mmol/L Chloride 93 L (98-107) mmol/L Carbon Dioxide 32 H (22-30) mmol/L BUN 21 H (7-17) mg/dL Creatinine 3.63 H (0.52-1.04) mg/dL POC Glucose (mg/dL) 231 H (70-110) mg/dL 05/29/25 Range/Units 06:29 RBC (4.10-5.20) 10*6/uL Hgb (12.0-15.0) g/dL Hct (37.2-46.3) % MCV (80.0-97.0) fL MCH (27.0-32.0) pg Eosinophils # (0.04-0.35) 10*3/uL Sodium (137-145) mmol/L Chloride (98-107) mmol/L Carbon Dioxide (22-30) mmol/L BUN (7-17) mg/dL Creatinine (0.52-1.04) mg/dL POC Glucose (mg/dL) 113 H (70-110) mg/dL Assessment and Plan Assessment: Acute diabetic ketoacidosis, recovered and the patient is currently on Lantus insulin 11 units twice daily and NovoLog 6 units with meals and she has demonstrated adequate blood sugar control. No significant metabolic acidosis. Hypertensive, stable blood pressure Acute pulmonary edema, improved postdialysis and the patient is currently on 2 L of oxygen by nasal cannula. Hemodialysis completed yesterday with a total of 2.5 L of ultrafiltration. Another session of hemodialysis to be done today. Acute hypoxemic respiratory failure, currently on 2 L/min nasal cannula Diabetes mellitus, insulin-dependent End-stage renal disease, maintained on hemodialysis 4 times a week, patient denies missing any hemodialysis sessions Severe hyperkalemia, improved Hypervolemic hyponatremia Anemia of chronic disease History of CVA/TIA History of optic neuritis history of hypothyroidism Plan: Patient currently on 2 L of oxygen by nasal cannula. Continue Lantus insulin 11 units twice daily and NovoLog 6 units with meals Adequate blood pressure control. Home antihypertensive medications have been resumed including Procardia XL 90 mg twice daily, Imdur 120 mg p.o. daily, Catapres 0.3 mg p.o. 3 times daily, and Coreg 50 mg p.o. twice daily. Patient is also on Imdur 120 mg p.o. daily. Hemodialysis today Will move her to a medical floor as long as the patient remains stable post he modialysis. Currently on 2 L of oxygen by nasal cannula. Time with Patient: Greater than 30
[2025-05-29 15:24] LABS: Ferritin 570.0 ng/mL (10.0-291.0); Iron 78.0 UG/DL (50-170); Total Iron Binding Capacity 273.0 UG/DL (228-460)
--- NOTE | 2025-05-29 15:32 | P.PN ---
Subjective Progress Note Date: 05/29/25 HPI: 35-year-old female known to me from her medical hospitalization came in with nausea vomiting found to be in DKA with mild metabolic acidosis anion gap of 16. Patient was on IV insulin anion gap closed patient is transition to subcutaneous insulin although her blood sugars have bit low. Patient blood pressure was high on admission. Patient is end-stage renal disease hemodialysis dependent patient was also volume overloaded and had an emergent hemodialysis with removal of 3 L of fluid. LFTs are minimally elevated because of hepatic congestion. Patient is complaining of generalized bodyaches. Subjective: 05/29/2025: Patient seen at bedside. No significant overnight events. States she is feeling better, requesting higher dose of trazodone as she is still having difficulty with sleeping. Otherwise no other complaints at this time. Pertinent positives and negatives discussed above, a complete review of systems was preformed and all the other sytems were negative. Vitals Signs Reveiwed. GENERAL: The patient is alert and oriented x3, not in any acute distress. Well developed, well nourished. HEENT: Pupils are round and equally reacting to light. EOMI. No scleral icterus. No conjunctival pallor. Normocephalic, atraumatic. No pharyngeal erythema. No thyromegaly. CARDIOVASCULAR: S1 and S2 present. No murmurs, rubs, or gallops. PULMONARY: Chest is clear to auscultation, no wheezing or crackles. ABDOMEN: Soft, nontender, nondistended, normoactive bowel sounds. No palpable organomegaly. MUSCULOSKELETAL: No joint swelling or deformity. EXTREMITIES: No cyanosis, clubbing, or pedal edema. NEUROLOGICAL: Gross neurological examination did not reveal any focal deficits. SKIN: No rashes. Data Reveiwed Today: Patient Labs: WBC 9.49, hemoglobin 8.7, MCV 100.4, platelets 269, sodium 134, potassium 4.3, bicarb 32, chloride 93, BUN 21, creatinine 3.60, glucose 113, transferrin 195, ferritin 570, iron 78, TIBC 273, percent saturation 28.57.. Imaging: No new imaging Assessment and plan -Diabetic ketoacidosis: Anion gap closed, continue Lantus insulin 11 units twice daily and NovoLog 6 units twice daily. Patient will be transferred to medical floor as long as she remains hemodynamically stable after dialysis. - Iron studies within normal limits outside of transferrin 195 and ferritin 570. - Hyponatremia: Secondary to end-stage renal disease mainly there is a component of hyperosmolar hyponatremia from elevated blood sugars - Volume overload, acute pulmonary edema secondary to end-stage renal disease status post hemodialysis patient is presently on 2 L of oxygen - Acute hypoxic respiratory failure secondary to pulmonary edema improving at this time - Type 2 diabetes mellitus uncontrolled low blood sugars management as mentioned above - Hyperkalemia patient always has issues with hyperkalemia patient is on regular scheduled Lokelma along with hemodialysis patient did undergo hemodialysis - Anemia of chronic kidney disease - Hypothyroidism - Leukocytosis reactive secondary to DKA: Resolved Accelerated hypertension: Patient was resumed on home regimen with improved blood pressures - Diabetic peripheral neuropathy - Seizure disorder for which patient is on Depakote F none E PhosLo N renal diet A as tolerated DVT ppx: Subcutaneous heparin GI ppx: Famotidine 20 mg daily Code Status: Full code Anticipated discharge place: To home Anticipated discharge time: Pending clinical course Objective - Vital Signs Vital signs: Vital Signs Temp 97.9 F 05/29/25 04:00 Pulse 68 05/29/25 04:00 Resp 16 05/29/25 04:00 BP 133/73 05/29/25 04:00 Pulse Ox 93 L 05/29/25 04:00 FiO2 Intake & Output 05/28/25 05/29/25 05/29/25 18:59 06:59 18:59 Intake Total 3500 200 Output Total 3000 Balance 500 200 Weight 72.5 kg 72.7 kg Intake: Oral 500 Tube Feeding 200 Hemodialysis 3000 Output: Urine 0 Hemodialysis 500 Hemodialysis Net Amount 2500 Other: # Voids 0 - Labs CBC & Chem 7: 05/29/25 05:24 05/29/25 05:24 Labs: Abnormal Lab Results - Last 24 Hours (Table) 05/28/25 05/28/25 05/28/25 Range/Units 14:59 16:57 20:54 RBC (4.10-5.20) 10*6/uL Hgb (12.0-15.0) g/dL Hct (37.2-46.3) % MCV (80.0-97.0) fL MCH (27.0-32.0) pg Eosinophils # (0.04-0.35) 10*3/uL Sodium (137-145) mmol/L Chloride (98-107) mmol/L Carbon Dioxide (22-30) mmol/L BUN (7-17) mg/dL Creatinine (0.52-1.04) mg/dL POC Glucose (mg/dL) 185 H 225 H 387 H (70-110) mg/dL 05/29/25 05/29/25 05/29/25 Range/Units 01:47 05:24 05:24 RBC 2.60 L (4.10-5.20) 10*6/uL Hgb 8.7 L (12.0-15.0) g/dL Hct 26.1 L (37.2-46.3) % MCV 100.4 H (80.0-97.0) fL MCH 33.5 H (27.0-32.0) pg Eosinophils # 0.84 H (0.04-0.35) 10*3/uL Sodium 134 L (137-145) mmol/L Chloride 93 L (98-107) mmol/L Carbon Dioxide 32 H (22-30) mmol/L BUN 21 H (7-17) mg/dL Creatinine 3.63 H (0.52-1.04) mg/dL POC Glucose (mg/dL) 231 H (70-110) mg/dL 05/29/25 Range/Units 06:29 RBC (4.10-5.20) 10*6/uL Hgb (12.0-15.0) g/dL Hct (37.2-46.3) % MCV (80.0-97.0) fL MCH (27.0-32.0) pg Eosinophils # (0.04-0.35) 10*3/uL Sodium (137-145) mmol/L Chloride (98-107) mmol/L Carbon Dioxide (22-30) mmol/L BUN (7-17) mg/dL Creatinine (0.52-1.04) mg/dL POC Glucose (mg/dL) 113 H (70-110) mg/dL
[2025-05-29 16:09] LABS: Glucose,Whole Blood 225 mg/dL (70-110)
[2025-05-29 20:20] LABS: Glucose,Whole Blood 155 mg/dL (70-110)
[2025-05-30 03:43] LABS: Glucose,Whole Blood 313 mg/dL (70-110)
[2025-05-30 03:59] LABS: Basophils # (A) 0.09 10*3/uL (0.00-0.10); Basophils % (A) 1.2 %; Eosinophils # (A) 0.87 10*3/uL (0.04-0.35); Eosinophils % (A) 11.2 %; HCT 24.3 % (37.2-46.3); HGB 7.8 g/dL (12.0-15.0); Lymphocytes # (A) 1.28 10*3/uL (0.90-5.00); Lymphocytes % (A) 16.5 %; MCH 33.8 pg (27.0-32.0); MCHC 32.1 g/dL (32.0-37.0); MCV 105.2 fL (80.0-97.0); Monocytes # (A) 0.60 10*3/uL (0.20-1.00); Monocytes % (A) 7.7 %; Neutrophils # (A) 4.88 10*3/uL (1.80-7.70); Neutrophils % (A) 62.8 %; Platelet Count 217 10*3/uL (140-440); RBC 2.31 10*6/uL (4.10-5.20); RDW 18.6 % (11.5-14.5); WBC 7.77 10*3/uL (4.50-10.00)
[2025-05-30 04:12] LABS: African American GFR (CKD) 23 (>60 ml/min/1.73 sqM); Anion Gap 11 mmol/L; Blood Urea Nitrogen 14 mg/dL (7-17); Calcium 8.5 mg/dL (8.4-10.2); Carbon Dioxide 25 mmol/L (22-30); Chloride 97 mmol/L (98-107); Glucose 290 mg/dL (74-99); Non-African American GFR(CKD) 20 (>60 ml/min/1.73 sqM); Potassium 4.4 mmol/L (3.5-5.1); Sodium 133 mmol/L (137-145)
[2025-05-30 05:51] LABS: RBC Fragments Present
[2025-05-30 07:08] LABS: Glucose,Whole Blood 140 mg/dL (70-110)
--- NOTE | 2025-05-30 09:41 | P.PN ---
Subjective Patient is seen in follow-up for end-stage renal disease. No problems with dialysis yesterday. Tolerated 3 L ultrafiltration. Resting in bed. Vital signs are stable. General: No acute distress. HEENT: Head exam is unremarkable. On nasal cannula. LUNGS: No audible rhonchi or wheezes. HEART: Rate and Rhythm are regular. ABDOMEN: Nontender. EXTREMITITES: No edema. Objective - Vital Signs Vital signs: Vital Signs Temp 98.0 F 05/30/25 09:17 Pulse 80 05/30/25 09:17 Resp 18 05/30/25 09:17 BP 130/68 05/30/25 09:17 Pulse Ox 98 05/30/25 09:17 FiO2 Intake & Output 05/29/25 05/30/25 05/30/25 18:59 06:59 18:59 Intake Total 1000 1750 Output Total 0 6400 Balance 1000 -4650 Weight 77.3 kg Intake: Oral 1000 1350 Hemodialysis 400 Output: Urine 0 0 Hemodialysis 3400 Hemodialysis Net Amount 3000 Other: # Bowel Movements 0 - Labs CBC & Chem 7: 05/30/25 03:43 05/30/25 03:43 Labs: Abnormal Lab Results - Last 24 Hours (Table) 05/29/25 05/29/25 05/29/25 Range/Units 05:24 11:05 16:08 RBC (4.10-5.20) 10*6/uL Hgb (12.0-15.0) g/dL Hct (37.2-46.3) % MCV (80.0-97.0) fL MCH (27.0-32.0) pg Immature Gran # (0.00-0.04) 10*3/uL Eosinophils # (0.04-0.35) 10*3/uL Sodium (137-145) mmol/L Chloride (98-107) mmol/L Creatinine (0.52-1.04) mg/dL Glucose (74-99) mg/dL POC Glucose (mg/dL) 181 H 225 H (70-110) mg/dL Transferrin 195.0 L (204.0-354.0) mg/dL Ferritin 570.0 H (10.0-291.0) ng/mL 05/29/25 05/30/25 05/30/25 Range/Units 20:18 03:42 03:43 RBC 2.31 L (4.10-5.20) 10*6/uL Hgb 7.8 L (12.0-15.0) g/dL Hct 24.3 L (37.2-46.3) % MCV 105.2 H (80.0-97.0) fL MCH 33.8 H (27.0-32.0) pg Immature Gran # 0.05 H (0.00-0.04) 10*3/uL Eosinophils # 0.87 H (0.04-0.35) 10*3/uL Sodium (137-145) mmol/L Chloride (98-107) mmol/L Creatinine (0.52-1.04) mg/dL Glucose (74-99) mg/dL POC Glucose (mg/dL) 155 H 313 H (70-110) mg/dL Transferrin (204.0-354.0) mg/dL Ferritin (10.0-291.0) ng/mL 05/30/25 05/30/25 Range/Units 03:43 07:07 RBC (4.10-5.20) 10*6/uL Hgb (12.0-15.0) g/dL Hct (37.2-46.3) % MCV (80.0-97.0) fL MCH (27.0-32.0) pg Immature Gran # (0.00-0.04) 10*3/uL Eosinophils # (0.04-0.35) 10*3/uL Sodium 133 L (137-145) mmol/L Chloride 97 L (98-107) mmol/L Creatinine 3.00 H (0.52-1.04) mg/dL Glucose 290 H (74-99) mg/dL POC Glucose (mg/dL) 140 H (70-110) mg/dL Transferrin (204.0-354.0) mg/dL Ferritin (10.0-291.0) ng/mL Assessment and Plan Plan: Assessment: 1. End-stage renal disease maintained on hemodialysis on Wednesday. 2. DKA status post insulin drip. Patient has brittle diabetes. 3. Hypertension with chronic kidney disease. Stable. 4. History of pericardial effusion. 5. Metabolic acidosis secondary to DKA and lactic acidosis. Improved. 6. Anemia of chronic kidney disease. Iron replete. Plan: Hemodialysis tomorrow. SHE outpatient. Stressed compliance with low-sodium diet and fluid restriction of less than 50 ounces per day.
[2025-05-30] MEDS: D5-0.45% NACL WITH KCL 20MEQ/L 1,000 ML IV SCH (10:01)
[2025-05-30] MEDS: SODIUM CHLORIDE 0.9% 1,000 ML IV SCH (10:01)
[2025-05-30 11:33] LABS: Glucose,Whole Blood 124 mg/dL (70-110)
--- NOTE | 2025-05-30 13:56 | P.PN ---
Subjective Progress Note Date: 05/30/25 Patient is a 35-year-old white female with significant past medical history including uncontrolled hypertension, uncontrolled diabetes mellitus, end-stage renal disease (maintained on hemodialysis 4 times weekly), TIA/CVA, optic neuritis, among other things. Patient came to the emergency department yest erd afternoon with concerned of high blood sugars. Additionally, weak and fatigued. Nausea without vomiting. Blood sugar was found to be elevated at 961. Mild case of metabolic acidosis with a serum bicarb of 21 and anion gap of 16. Acetone positive. She was previously started on the DKA protocol. Her blood pressure is extremely hypertensive, currently 203/109 mmHg. Also, endorsing some shortness of breath. Chest x-ray consistent with pulmonary edema. She denies missing any of her antihypertensive medications. Denies missing any treatments of hemodialysis. Did receive a emergent hemodialysis treatment earlier yesterday, and a total of 3 L was removed. Most recent labs including a CBC with a WBC count of 10.3, hemoglobin 8.5 g/dL, platelets 244. CMP: Sodium 126, potassium 4.5, chloride 86, serum bicarb 28, anion gap 12, BUN 33, creatinine 3.52, glucose is currently down to 120. Lactic 2.5. LFTs mildly elevated. Troponin less than 0.012. Currently being seen in the intensive care unit. Alert and oriented. Nondistressed. She is on 2 L/min nasal cannula. Breathing has improved. Currently, her blood pressure is severely elevated at 203/109 mmHg. I asked the nurse to start this patient on Cleviprex. Her home antihypertensive medications have been resumed including Procardia XL 90 mg twice daily, Imdur 120 mg p.o. daily, Catapres 0.3 mg p.o. 3 times daily, and Coreg 50 mg p.o. twice daily. She denies any headache, vision changes, dizziness, chest pain, palpitations, edema. Her blood sugar improved. Denies any recent URI infections or sick contacts. States she has been compliant with her insulin therapy. No nausea or vomiting. A renal diet has been resumed. 05/29/2025, the patient is being seen for a follow-up. The patient is calm and comfortable and she is awake and alert. Some episodic nausea still present. She is currently on 2 L of oxygen by nasal cannula. No significant hyperglycemia. No hypoglycemia. The patient is on Lantus insulin 11 units twice daily and 6 units of NovoLog with meals. The patient underwent hemodialysis yesterday with a total of 2.5 L of ultrafiltration. White cell count at 9.4 with a hemoglobin 8.7 and a platelet count of 269. BUN is 21 with a creatinine of 3.3. Potassium level is at 4.3. Blood pressure is under adequate control and patient remains on clonidine 0.3 mg p.o. 3 times daily, Coreg 30 mg p.o. twice daily, Imdur 120 mg p.o. daily, nifedipine XL 90 mg p.o. twice a day. Rest of the medications are essentially unchanged. She is awake and alert and communicating. No other significant events overnight. On 05/30/2025, the patient is being seen on the medical floor. The patient was transferred out of the intensive care yesterday. This morning, the patient is on room air oxygen. Continues to have some episodes of dizziness and nausea. Nevertheless, the blood sugar is under good control and the patient's blood pressure is also under good control. She remains on Lantus insulin 11 units twice daily and NovoLog 6 units 3 times daily with meals. In terms of blood pressure control, she remains on Coreg 50 mg p.o. twice a day, Catapres 0.3 mg p.o. 3 times daily, Imdur 120 mg p.o. daily and Procardia XL 90 mg p.o. twice a day. She is complaining of diffuse bodyaches. The white cell count at 7.7 with a heme of 7.8 and a platelet count of 217. BUN is 14 with a creatinine of 3.0 and a sodium levels at 133 and a potassium levels of 4.4. Last hemodialysis session was done yesterday which is 05/29/2025. Objective - Vital Signs Vital signs: Vital Signs Temp 98.0 F 05/30/25 09:17 Pulse 80 05/30/25 09:17 Resp 18 05/30/25 09:17 BP 130/68 05/30/25 09:17 Pulse Ox 98 05/30/25 09:17 FiO2 Intake & Output 05/29/25 05/30/25 05/30/25 18:59 06:59 18:59 Intake Total 1000 1750 10 Output Total 0 6400 Balance 1000 -4650 10 Weight 77.3 kg Intake: IV 10 Invasive Line 4 10 Oral 1000 1350 Hemodialysis 400 Output: Urine 0 0 Hemodialysis 3400 Hemodialysis Net Amount 3000 Other: # Bowel Movements 0 1 - Exam GENERAL EXAM: Alert, 35-year-old female, comfortable in no apparent distress., Currently on room air oxygen HEAD: Normocephalic and atraumatic EYES: Normal reaction of pupils, equal size. NOSE: Clear with pink turbinates. THROAT: No erythema or exudates. NECK: No masses, no JVD. CHEST: No chest wall deformity. LUNGS: Equal air entry with minimal bibasilar inspiratory crackles. No conversational dyspnea or accessory muscle use.. CVS: S1 and S2 normal with no audible murmur, regular rhythm. No extra heart sounds ABDOMEN: No hepatosplenomegaly, active bowel sounds, no guarding or rigidity. SPINE: No scoliosis or deformity SKIN: No rashes CENTRAL NERVOUS SYSTEM: Alert and oriented x 3, cranial nerves II through XII intact, no focal deficits, tone is normal in all 4 extremities. EXTREMITIES: There is no peripheral edema, clubbing, or cyanosis. Peripheral pulses are intact. - Labs CBC & Chem 7: 05/30/25 03:43 05/30/25 03:43 Labs: Abnormal Lab Results - Last 24 Hours (Table) 05/29/25 05/29/25 05/29/25 Range/Units 05:24 11:05 16:08 RBC (4.10-5.20) 10*6/uL Hgb (12.0-15.0) g/dL Hct (37.2-46.3) % MCV (80.0-97.0) fL MCH (27.0-32.0) pg Immature Gran # (0.00-0.04) 10*3/uL Eosinophils # (0.04-0.35) 10*3/uL Sodium (137-145) mmol/L Chloride (98-107) mmol/L Creatinine (0.52-1.04) mg/dL Glucose (74-99) mg/dL POC Glucose (mg/dL) 181 H 225 H (70-110) mg/dL Transferrin 195.0 L (204.0-354.0) mg/dL Ferritin 570.0 H (10.0-291.0) ng/mL 05/29/25 05/30/2525 Range/Units 20:18 03:42 03:43 RBC 2.31 L (4.10-5.20) 10*6/uL Hgb 7.8 L (12.0-15.0) g/dL Hct 24.3 L (37.2-46.3) % MCV 105.2 H (80.0-97.0) fL MCH 33.8 H (27.0-32.0) pg Immature Gran # 0.05 H (0.00-0.04) 10*3/uL Eosinophils # 0.87 H (0.04-0.35) 10*3/uL Sodium (137-145) mmol/L Chloride (98-107) mmol/L Creatinine (0.52-1.04) mg/dL Glucose (74-99) mg/dL POC Glucose (mg/dL) 155 H 313 H (70-110) mg/dL Transferrin (204.0-354.0) mg/dL Ferritin (10.0-291.0) ng/mL 05/30/25 05/30/25 Range/Units 03:43 07:07 RBC (4.10-5.20) 10*6/uL Hgb (12.0-15.0) g/dL Hct (37.2-46.3) % MCV (80.0-97.0) fL MCH (27.0-32.0) pg Immature Gran # (0.00-0.04) 10*3/uL Eosinophils # (0.04-0.35) 10*3/uL Sodium 133 L (137-145) mmol/L Chloride 97 L (98-107) mmol/L Creatinine 3.00 H (0.52-1.04) mg/dL Glucose 290 H (74-99) mg/dL POC Glucose (mg/dL) 140 H (70-110) mg/dL Transferrin (204.0-354.0) mg/dL Ferritin (10.0-291.0) ng/mL Assessment and Plan Assessment: Acute diabetic ketoacidosis, recovered and the patient is currently on Lantus insulin 11 units twice daily and NovoLog 6 units with meals and she has demonstrated adequate blood sugar control. No significant metabolic acidosis. Hypertensive, stable blood pressure Acute pulmonary edema, improved postdialysis and the patient is currently on room air oxygen Acute hypoxemic respiratory failure, currently on 2 L/min nasal cannula Diabetes mellitus, insulin-dependent End-stage renal disease, maintained on hemodialysis 4 times a week, patient had a hemodialysis session on 05/29/2025. Electrolytes are all stable. Severe hyperkalemia, improved Hypervolemic hyponatremia Anemia of chronic disease History of CVA/TIA History of optic neuritis history of hypothyroidism Plan: Patient currently on room air oxygen Continue Lantus insulin 11 units twice daily and NovoLog 6 units with meals Adequate blood pressure control. Home antihypertensive medications have been resumed including Procardia XL 90 mg twice daily, Imdur 120 mg p.o. daily, Catapres 0.3 mg p.o. 3 times daily, and Coreg 50 mg p.o. twice daily. Patient is also on Imdur 120 mg p.o. daily. Hemodialysis today Will move her to a medical floor as long as the patient remains stable post hemodialysis. Currently on 2 L of oxygen by nasal cannula.
--- NOTE | 2025-05-30 14:14 | P.PN ---
Subjective Progress Note Date: 05/30/25 This is a 35-year-old female type I diabetic with end-stage renal disease maintained on hemodialysis. Patient presented to the hospital with diabetic ketoacidosis which has been since resolved and she has been moved out of the intensive care unit. She is currently on a combination of Lantus 11 units twice daily as well as sliding scale insulin with 6 units with meals. Patient has had persistent nausea and states that she is barely tolerating oral intake. She is going to attempt having lunch today. She also complains of feeling dizzy. Patient states that she has pain and limited range of motion to her left arm was unable to complete a passive rotation and abduction and flexion without increasi ng pain. States no exogenous activity lately, and no heavy lifting etc. Patient will undergo hemodialysis tomorrow. Blood pressure 142/73. Review of Systems Constitutional: Denied any fatigue denied any fever. Cardio vascular: denied any chest pain, palpitations Gastrointestinal: denied any nausea, vomiting, diarrhea Pulmonary: Denied any shortness of breath cough Neurologic denied any new focal deficits All inpatient medications were reviewed and appropriate changes in these medications as dictated in the interval history and assessment and plan PHYSICAL EXAMINATION: GENERAL: The patient is alert and oriented x3, not in any acute distress. Well developed, well nourished. HEENT: Pupils are round and equally reacting to light. EOMI. No scleral icterus. No conjunctival pallor. Normocephalic, atraumatic. No pharyngeal erythema. No thyromegaly. CARDIOVASCULAR: S1 and S2 present. No murmurs, rubs, or gallops. PULMONARY: Chest is clear to auscultation, no wheezing or crackles. ABDOMEN: Soft, nontender, nondistended, normoactive bowel sounds. No palpable organomegaly. MUSCULOSKELETAL: No joint swelling or deformity. EXTREMITIES: No cyanosis, clubbing, or pedal edema. Painful arc of the left shoulder; wincing and not wanting to perform passive flexion extension or abduction of the left arm. NEUROLOGICAL: Gross neurological examination did not reveal any focal deficits. SKIN: No rashes. Assessment and plan - Diabetic ketoacidosis: Anion gap closed, - Iron studies within normal limits outside of transferrin 195 and ferritin 570. - Hyponatremia: Secondary to end-stage renal disease mainly there is a component of hyperosmolar hyponatremia from elevated blood sugars; improved. - Volume overload, acute pulmonary edema secondary to end-stage renal disease status post hemodialysis patient is presently on room air. - Acute hypoxic respiratory failure secondary to pulmonary edema improving at this time - Type 2 diabetes mellitus uncontrolled low blood sugars management as mentioned above - Hyperkalemia patient always has issues with hyperkalemia patient is on regular scheduled Lokelma along with hemodialysis patient did undergo hemodialysis - Anemia of chronic kidney disease - Hypothyroidism - Leukocytosis reactive secondary to DKA: Resolved - Accelerated hypertension: Patient was resumed on home regimen with improved blood pressures - Diabetic peripheral neuropathy - Seizure disorder for which patient is on Depakote GI prophylaxis DVT prophylaxis Full Code Plan Patient is currently monitored on the medical floor Continues to report nausea and currently on zofran PRN, encouraged to eat small frequent meals and increase her protein intake continue Lantus insulin 11 units twice daily and NovoLog 6 units twice daily. Will Xray the left shoulder Likely patient can be discharged home tomorrow after hemodialysis Monitor electrolytes and renal function The impression and plan of care has been dictated by eYni Blackburn, Nurse Practitioner as directed. Dr. Connie MD I have performed a history and physical examination and medical decision making of this patient, discussed the same with the dictator, and agree with the dictators assessment and plan as written, documented as a scribe. Based on total visit time, I have performed more than 50% of this visit. Objective - Vital Signs Vital signs: Vital Signs Temp 97.7 F 05/30/25 10:00 Pulse 84 05/30/25 10:00 Resp 18 05/30/25 10:00 BP 142/73 05/30/25 10:00 Pulse Ox 96 05/30/25 10:00 FiO2 Intake & Output 05/29/25 05/30/25 05/30/25 18:59 06:59 18:59 Intake Total 1000 1750 10 Output Total 0 6400 Balance 1000 -4650 10 Weight 77.3 kg Intake: IV 10 Invasive Line 4 10 Oral 1000 1350 Hemodialysis 400 Output: Urine 0 0 Hemodialysis 3400 Hemodialysis Net Amount 3000 Other: # Bowel Movements 0 1 - Labs CBC & Chem 7: 05/30/25 03:43 05/30/25 03:43 Labs: Abnormal Lab Results - Last 24 Hours (Table) 05/29/25 05/29/25 05/29/25 Range/Units 05:24 16:08 20:18 RBC (4.10-5.20) 10*6/uL Hgb (12.0-15.0) g/dL Hct (37.2-46.3) % MCV (80.0-97.0) fL MCH (27.0-32.0) pg Immature Gran # (0.00-0.04) 10*3/uL Eosinophils # (0.04-0.35) 10*3/uL Sodium (137-145) mmol/L Chloride (98-107) mmol/L Creatinine (0.52-1.04) mg/dL Glucose (74-99) mg/dL POC Glucose (mg/dL) 225 H 155 H (70-110) mg/dL Transferrin 195.0 L (204.0-354.0) mg/dL Ferritin 570.0 H (10.0-291.0) ng/mL 05/30/25 05/30/25 05/30/25 Range/Units 03:42 03:43 03:43 RBC 2.31 L (4.10-5.20) 10*6/uL Hgb 7.8 L (12.0-15.0) g/dL Hct 24.3 L (37.2-46.3) % MCV 105.2 H (80.0-97.0) fL MCH 33.8 H (27.0-32.0) pg Immature Gran # 0.05 H (0.00-0.04) 10*3/uL Eosinophils # 0.87 H (0.04-0.35) 10*3/uL Sodium 133 L (137-145) mmol/L Chloride 97 L (98-107) mmol/L Creatinine 3.00 H (0.52-1.04) mg/dL Glucose 290 H (74-99) mg/dL POC Glucose (mg/dL) 313 H (70-110) mg/dL Transferrin (204.0-354.0) mg/dL Ferritin (10.0-291.0) ng/mL 05/30/25 05/30/25 Range/Units 07:07 11:31 RBC (4.10-5.20) 10*6/uL Hgb (12.0-15.0) g/dL Hct (37.2-46.3) % MCV (80.0-97.0) fL MCH (27.0-32.0) pg Immature Gran # (0.00-0.04) 10*3/uL Eosinophils # (0.04-0.35) 10*3/uL Sodium (137-145) mmol/L Chloride (98-107) mmol/L Creatinine (0.52-1.04) mg/dL Glucose (74-99) mg/dL POC Glucose (mg/dL) 140 H 124 H (70-110) mg/dL Transferrin (204.0-354.0) mg/dL Ferritin (10.0-291.0) ng/mL Assessment and Plan Time with Patient: Less than 30
--- NOTE | 2025-05-30 14:53 | XR ---
EXAMINATION TYPE: XR shoulder complete LT DATE OF EXAM: 05/30/2025 2:48 PM COMPARISON: None CLINICAL INDICATION: Female, 35 years old with history of limited ROM, Pain; PHH, pain TECHNIQUE: 3 views FINDINGS: Subacromial space is preserved. Small delineation of the greater tuberosity. No acute fracture, sublu xation, or dislocation. IMPRESSION: No acute osseous abnormality seen. [facility], Workstation: [facility], 05/30/2025 2:51 PM
[2025-05-30 16:31] LABS: Glucose,Whole Blood 162 mg/dL (70-110)
[2025-05-30 20:13] LABS: Glucose,Whole Blood 133 mg/dL (70-110)
[2025-05-31 02:09] LABS: Glucose,Whole Blood 169 mg/dL (70-110)
[2025-05-31 05:54] LABS: Glucose,Whole Blood 176 mg/dL (70-110)
[2025-05-31 08:58] LABS: Basophils # (A) 0.05 10*3/uL (0.00-0.10); Basophils % (A) 0.6 %; Eosinophils # (A) 1.15 10*3/uL (0.04-0.35); Eosinophils % (A) 12.9 %; HCT 23.9 % (37.2-46.3); HGB 7.9 g/dL (12.0-15.0); Lymphocytes # (A) 1.33 10*3/uL (0.90-5.00); Lymphocytes % (A) 14.9 %; MCH 34.2 pg (27.0-32.0); MCHC 33.1 g/dL (32.0-37.0); MCV 103.5 fL (80.0-97.0); Monocytes # (A) 0.55 10*3/uL (0.20-1.00); Monocytes % (A) 6.2 %; Neutrophils # (A) 5.79 10*3/uL (1.80-7.70); Neutrophils % (A) 65.0 %; Platelet Count 207 10*3/uL (140-440); RBC 2.31 10*6/uL (4.10-5.20); RDW 18.6 % (11.5-14.5); WBC 8.91 10*3/uL (4.50-10.00)
[2025-05-31 09:11] LABS: African American GFR (CKD) 11 (>60 ml/min/1.73 sqM); Anion Gap 11 mmol/L; Blood Urea Nitrogen 27 mg/dL (7-17); Calcium 9.1 mg/dL (8.4-10.2); Carbon Dioxide 26 mmol/L (22-30); Chloride 98 mmol/L (98-107); Glucose 161 mg/dL (74-99); Non-African American GFR(CKD) 10 (>60 ml/min/1.73 sqM); Potassium 4.7 mmol/L (3.5-5.1); Sodium 135 mmol/L (137-145)
--- NOTE | 2025-05-31 10:29 | P.PN ---
Subjective Patient is seen in follow-up for end-stage renal disease. Tolerating dialysis well. Hemodynamically stable. No active complaints. Vital signs are stable. General: No acute distress. HEENT: Head exam is unremarkable. On nasal cannula. LUNGS: No audible rhonchi or wheezes. HEART: Rate and Rhythm are regular. ABDOMEN: Nontender. EXTREMITITES: No edema. Objective - Vital Signs Vital signs: Vital Signs Temp 97.7 F 05/31/25 08:00 Pulse 78 05/31/25 08:00 Resp 16 05/31/25 08:00 BP 145/77 05/31/25 08:00 Pulse Ox 100 05/31/25 08:00 FiO2 Intake & Output 05/30/25 05/31/25 05/31/25 18:59 06:59 18:59 Intake Total 220 40 487 Balance 220 40 487 Weight 75.7 kg Intake: IV 20 40 10 0.9 20 Invasive Line 4 20 20 10 Oral 200 477 Other: # Bowel Movements 1 - Labs CBC & Chem 7: 05/31/25 08:27 05/31/25 08:27 Labs: Abnormal Lab Results - Last 24 Hours (Table) 05/30/25 05/30/25 05/30/25 Range/Units 11:31 16:29 20:12 RBC (4.10-5.20) 10*6/uL Hgb (12.0-15.0) g/dL Hct (37.2-46.3) % MCV (80.0-97.0) fL MCH (27.0-32.0) pg Eosinophils # (0.04-0.35) 10*3/uL Sodium (137-145) mmol/L BUN (7-17) mg/dL Creatinine (0.52-1.04) mg/dL Glucose (74-99) mg/dL POC Glucose (mg/dL) 124 H 162 H 133 H (70-110) mg/dL 05/31/25 05/31/25 05/31/25 Range/Units 02:07 05:52 08:27 RBC 2.31 L (4.10-5.20) 10*6/uL Hgb 7.9 L (12.0-15.0) g/dL Hct 23.9 L (37.2-46.3) % MCV 103.5 H (80.0-97.0) fL MCH 34.2 H (27.0-32.0) pg Eosinophils # 1.15 H (0.04-0.35) 10*3/uL Sodium (137-145) mmol/L BUN (7-17) mg/dL Creatinine (0.52-1.04) mg/dL Glucose (74-99) mg/dL POC Glucose (mg/dL) 169 H 176 H (70-110) mg/dL 05/31/25 Range/Units 08:27 RBC (4.10-5.20) 10*6/uL Hgb (12.0-15.0) g/dL Hct (37.2-46.3) % MCV (80.0-97.0) fL MCH (27.0-32.0) pg Eosinophils # (0.04-0.35) 10*3/uL Sodium 135 L (137-145) mmol/L BUN 27 H (7-17) mg/dL Creatinine 5.39 H (0.52-1.04) mg/dL Glucose 161 H (74-99) mg/dL POC Glucose (mg/dL) (70-110) mg/dL Assessment and Plan Plan: Assessment: 1. End-stage renal disease maintained on hemodialysis on Wednesday. 2. DKA status post insulin drip. Patient has brittle diabetes. 3. Hypertension with chronic kidney disease. Stable. 4. History of pericardial effusion. 5. Metabolic acidosis secondary to DKA and lactic acidosis. Improved. 6. Anemia of chronic kidney disease. Iron replete. Plan: Currently seen while undergoing hemodialysis. SHE outpatient. Stressed compliance with low-sodium diet and fluid restriction of less than 50 ounces per day.
[2025-05-31 11:26] LABS: Glucose,Whole Blood 120 mg/dL (70-110)
--- NOTE | 2025-05-31 12:22 | P.PN ---
Subjective Progress Note Date: 05/31/25 Patient is a 35-year-old white female with significant past medical history including uncontrolled hypertension, uncontrolled diabetes mellitus, end-stage renal disease (maintained on hemodialysis 4 times weekly), TIA/CVA, optic neuritis, among other things. Patient came to the emergency department yest erd afternoon with concerned of high blood sugars. Additionally, weak and fatigued. Nausea without vomiting. Blood sugar was found to be elevated at 961. Mild case of metabolic acidosis with a serum bicarb of 21 and anion gap of 16. Acetone positive. She was previously started on the DKA protocol. Her blood pressure is extremely hypertensive, currently 203/109 mmHg. Also, endorsing some shortness of breath. Chest x-ray consistent with pulmonary edema. She denies missing any of her antihypertensive medications. Denies missing any treatments of hemodialysis. Did receive a emergent hemodialysis treatment earlier yesterday, and a total of 3 L was removed. Most recent labs including a CBC with a WBC count of 10.3, hemoglobin 8.5 g/dL, platelets 244. CMP: Sodium 126, potassium 4.5, chloride 86, serum bicarb 28, anion gap 12, BUN 33, creatinine 3.52, glucose is currently down to 120. Lactic 2.5. LFTs mildly elevated. Troponin less than 0.012. Currently being seen in the intensive care unit. Alert and oriented. Nondistressed. She is on 2 L/min nasal cannula. Breathing has improved. Currently, her blood pressure is severely elevated at 203/109 mmHg. I asked the nurse to start this patient on Cleviprex. Her home antihypertensive medications have been resumed including Procardia XL 90 mg twice daily, Imdur 120 mg p.o. daily, Catapres 0.3 mg p.o. 3 times daily, and Coreg 50 mg p.o. twice daily. She denies any headache, vision changes, dizziness, chest pain, palpitations, edema. Her blood sugar improved. Denies any recent URI infections or sick contacts. States she has been compliant with her insulin therapy. No nausea or vomiting. A renal diet has been resumed. 05/29/2025, the patient is being seen for a follow-up. The patient is calm and comfortable and she is awake and alert. Some episodic nausea still present. She is currently on 2 L of oxygen by nasal cannula. No significant hyperglycemia. No hypoglycemia. The patient is on Lantus insulin 11 units twice daily and 6 units of NovoLog with meals. The patient underwent hemodialysis yesterday with a total of 2.5 L of ultrafiltration. White cell count at 9.4 with a hemoglobin 8.7 and a platelet count of 269. BUN is 21 with a creatinine of 3.3. Potassium level is at 4.3. Blood pressure is under adequate control and patient remains on clonidine 0.3 mg p.o. 3 times daily, Coreg 30 mg p.o. twice daily, Imdur 120 mg p.o. daily, nifedipine XL 90 mg p.o. twice a day. Rest of the medications are essentially unchanged. She is awake and alert and communicating. No other significant events overnight. On 05/30/2025, the patient is being seen on the medical floor. The patient was transferred out of the intensive care yesterday. This morning, the patient is on room air oxygen. Continues to have some episodes of dizziness and nausea. Nevertheless, the blood sugar is under good control and the patient's blood pressure is also under good control. She remains on Lantus insulin 11 units twice daily and NovoLog 6 units 3 times daily with meals. In terms of blood pressure control, she remains on Coreg 50 mg p.o. twice a day, Catapres 0.3 mg p.o. 3 times daily, Imdur 120 mg p.o. daily and Procardia XL 90 mg p.o. twice a day. She is complaining of diffuse bodyaches. The white cell count at 7.7 with a heme of 7.8 and a platelet count of 217. BUN is 14 with a creatinine of 3.0 and a sodium levels at 133 and a potassium levels of 4.4. Last hemodialysis session was done yesterday which is 05/29/2025. I was going 05/31/2025, the patient remains nauseous. She is undergoing hemodialysis. Blood pressure under good control. Blood sugars under good control. Medications are unchanged. Aware to go to the appointment with a hemoglobin of 7.9 and platelet count of 207. BUN 27 with a creatinine of 5.3 and sodium is at 135. She is on 2 L of oxygen by nasal cannula with pulse ox of 99%. Denies having any significant respiratory distress. The patient remains on Lantus insulin 11 units twice daily and 6 units of NovoLog with meals. Blood pressure medications are unchanged. Tolerating dialysis well.Labs from today shows a BUN of 27 with a creatinine of 5.3. Sodium is at 135. Potassium is at 4.7. Hemoglobin 7.9 with a white cell count of 8.9. Objective - Vital Signs Vital signs: Vital Signs Temp 97.7 F 05/31/25 08:00 Pulse 78 05/31/25 08:00 Resp 16 05/31/25 08:00 BP 145/77 05/31/25 08:00 Pulse Ox 100 05/31/25 08:00 FiO2 Intake & Output 05/30/25 05/31/25 05/31/25 18:59 06:59 18:59 Intake Total 220 40 487 Balance 220 40 487 Weight 75.7 kg Intake: IV 20 40 10 0.9 20 Invasive Line 4 20 20 10 Oral 200 477 Other: # Bowel Movements 1 - Exam GENERAL EXAM: Alert, 35-year-old female, comfortable in no apparent distress., Currently on room air oxygen HEAD: Normocephalic and atraumatic EYES: Normal reaction of pupils, equal size. NOSE: Clear with pink turbinates. THROAT: No erythema or exudates. NECK: No masses, no JVD. CHEST: No chest wall deformity. LUNGS: Equal air entry with minimal bibasilar inspiratory crackles. No conversational dyspnea or accessory muscle use.. CVS: S1 and S2 normal with no audible murmur, regular rhythm. No extra heart sounds ABDOMEN: No hepatosplenomegaly, active bowel sounds, no guarding or rigidity. SPINE: No scoliosis or deformity SKIN: No rashes CENTRAL NERVOUS SYSTEM: Alert and oriented x 3, cranial nerves II through XII intact, no focal deficits, tone is normal in all 4 extremities. EXTREMITIES: There is no peripheral edema, clubbing, or cyanosis. Peripheral pulses are intact. - Labs CBC & Chem 7: 05/31/25 08:27 05/31/25 08:27 Labs: Abnormal Lab Results - Last 24 Hours (Table) 05/30/25 05/30/25 05/30/25 Range/Units 11:31 16:29 20:12 RBC (4.10-5.20) 10*6/uL Hgb (12.0-15.0) g/dL Hct (37.2-46.3) % MCV (80.0-97.0) fL MCH (27.0-32.0) pg Eosinophils # (0.04-0.35) 10*3/uL Sodium (137-145) mmol/L BUN (7-17) mg/dL Creatinine (0.52-1.04) mg/dL Glucose (74-99) mg/dL POC Glucose (mg/dL) 124 H 162 H 133 H (70-110) mg/dL 05/31/25 05/31/25 05/31/25 Range/Units 02:07 05:52 08:27 RBC 2.31 L (4.10-5.20) 10*6/uL Hgb 7.9 L (12.0-15.0) g/dL Hct 23.9 L (37.2-46.3) % MCV 103.5 H (80.0-97.0) fL MCH 34.2 H (27.0-32.0) pg Eosinophils # 1.15 H (0.04-0.35) 10*3/uL Sodium (137-145) mmol/L BUN (7-17) mg/dL Creatinine (0.52-1.04) mg/dL Glucose (74-99) mg/dL POC Glucose (mg/dL) 169 H 176 H (70-110) mg/dL 05/31/25 Range/Units 08:27 RBC (4.10-5.20) 10*6/uL Hgb (12.0-15.0) g/dL Hct (37.2-46.3) % MCV (80.0-97.0) fL MCH (27.0-32.0) pg Eosinophils # (0.04-0.35) 10*3/uL Sodium 135 L (137-145) mmol/L BUN 27 H (7-17) mg/dL Creatinine 5.39 H (0.52-1.04) mg/dL Glucose 161 H (74-99) mg/dL POC Glucose (mg/dL) (70-110) mg/dL Assessment and Plan Assessment: Acute diabetic ketoacidosis, recovered and the patient is currently on Lantus insulin 11 units twice daily and NovoLog 6 units with meals and she has demonstrated adequate blood sugar control. No significant metabolic acidosis. Hypertensive, stable blood pressure Acute pulmonary edema, improved postdialysis and the patient is currently on 2 L of oxygen by nasal cannula Acute hypoxemic respiratory failure, currently on 2 L/min nasal cannula Diabetes mellitus, insulin-dependent End-stage renal disease, maintained on hemodialysis 4 times a week, patient had a hemodialysis session on 05/29/2025. Electrolytes are all stable. Severe hyperkalemia, improved Hypervolemic hyponatremia Anemia of chronic disease History of CVA/TIA History of optic neuritis history of hypothyroidism Plan: Patient currently on 2 L of oxygen by nasal cannula. Continue Lantus insulin 11 units twice daily and NovoLog 6 units with meals Adequate blood pressure control. Home antihypertensive medications have been resumed including Procardia XL 90 mg twice daily, Imdur 120 mg p.o. daily, Catapres 0.3 mg p.o. 3 times daily, and C oreg 50 mg p.o. twice daily. Patient is also on Imdur 120 mg p.o. daily. Hemodialysis today Will move her to a medical floor as long as the patient remains stable post hemodialysis. Continues to have nausea. Treatment is internal medicine. Time with Patient: Greater than 30
--- NOTE | 2025-05-31 15:37 | P.PN ---
Subjective This is a 35-year-old female type I diabetic with end-stage renal disease maintained on hemodialysis. Patient presented to the hospital with diabetic ketoacidosis which has been since resolved and she has been moved out of the intensive care unit. She is currently on a combination of Lantus 11 units twice daily as well as sliding scale insulin with 6 units with meals. Patient has had persistent nausea and states that she is barely tolerating oral intake. She is going to attempt having lunch today. She also complains of feeling dizzy. Bernard lewis states that she has pain and limited range of motion to her left arm was unable to complete a passive rotation and abduction and flexion without increasing pain. States no exogenous activity lately, and no heavy lifting etc. Patient will undergo hemodialysis tomorrow. Blood pressure 142/73. 05/31/2025: Patient seen at bedside. No significant overnight events. States she still having some left shoulder pain, x-ray was negative for acute process. Review of Systems Constitutional: Denied any fatigue denied any fever. Cardio vascular: denied any chest pain, palpitations Gastrointestinal: denied any nausea, vomiting, diarrhea Pulmonary: Denied any shortness of breath cough Neurologic denied any new focal deficits All inpatient medications were reviewed and appropriate changes in these medications as dictated in the interval history and assessment and plan PHYSICAL EXAMINATION: GENERAL: The patient is alert and oriented x3, not in any acute distress. Well developed, well nourished. HEENT: Pupils are round and equally reacting to light. EOMI. No scleral icterus. No conjunctival pallor. Normocephalic, atraumatic. No pharyngeal erythema. No thyromegaly. CARDIOVASCULAR: S1 and S2 present. No murmurs, rubs, or gallops. PULMONARY: Chest is clear to auscultation, no wheezing or crackles. ABDOMEN: Soft, nontender, nondistended, normoactive bowel sounds. No palpable organomegaly. MUSCULOSKELETAL: No joint swelling or deformity. EXTREMITIES: No cyanosis, clubbing, or pedal edema. Painful arc of the left shoulder; wincing and not wanting to perform passive flexion extension or abduction of the left arm. NEUROLOGICAL: Gross neurological examination did not reveal any focal deficits. SKIN: No rashes. Assessment and plan - Diabetic ketoacidosis: Anion gap closed, - Iron studies within normal limits outside of transferrin 195 and ferritin 570. - Hyponatremia: Secondary to end-stage renal disease mainly there is a component of hyperosmolar hyponatremia from elevated blood sugars; improved. - Volume overload, acute pulmonary edema secondary to end-stage renal disease status post hemodialysis patient is presently on room air. - Acute hypoxic respiratory failure secondary to pulmonary edema improving at this time - Type 2 diabetes mellitus uncontrolled low blood sugars management as mentioned above - Hyperkalemia patient always has issues with hyperkalemia patient is on regular scheduled Lokelma along with hemodialysis patient did undergo hemodialysis - Anemia of chronic kidney disease - Hypothyroidism - Leukocytosis reactive secondary to DKA: Resolved - Accelerated hypertension: Patient was resumed on home regimen with improved blood pressures - Diabetic peripheral neuropathy - Seizure disorder for which patient is on Depakote GI prophylaxis DVT prophylaxis Full Code Plan Patient is currently monitored on the medical floor Continues to report nausea and currently on zofran PRN, encouraged to eat small frequent meals and increase her protein intake continue Lantus insulin 11 units twice daily and NovoLog 6 units twice daily. X-ray of left shoulder showed no acute osseous process, no fracture or dislocation Plan was for patient to be discharged today, but prior Auth for rehab facility was not yet completed patient will be discharged tomorrow. Monitor electrolytes and renal function Dr. Connie MD I have performed a history and physical examination and medical decision making of this patient, discussed the same with the dictator, and agree with the dictators assessment and plan as written, documented as a scribe. Based on total visit time, I have performed more than 50% of this visit. Objective - Vital Signs Vital signs: Vital Signs Temp 97.6 F 05/31/25 12:33 Pulse 76 05/31/25 12:33 Resp 16 05/31/25 12:33 BP 147/81 05/31/25 12:33 Pulse Ox 100 05/31/25 08:00 FiO2 Intake & Output 05/30/25 05/31/25 05/31/25 18:59 06:59 18:59 Intake Total 530 72 6416 Output Total 7600 Balance 220 40 -6476 Weight 75.7 kg Intake: IV 20 40 10 0.9 20 Invasive Line 4 20 20 10 Oral 200 714 Hemodialysis 400 Output: Hemodialysis 4000 Hemodialysis Net Amount 3600 Other: # Bowel Movements 1 - Labs CBC & Chem 7: 05/31/25 08:27 05/31/25 08:27 Labs: Abnormal Lab Results - Last 24 Hours (Table) 05/30/25 05/30/25 05/31/25 Range/Units 16:29 20:12 02:07 RBC (4.10-5.20) 10*6/uL Hgb (12.0-15.0) g/dL Hct (37.2-46.3) % MCV (80.0-97.0) fL MCH (27.0-32.0) pg Eosinophils # (0.04-0.35) 10*3/uL Sodium (137-145) mmol/L BUN (7-17) mg/dL Creatinine (0.52-1.04) mg/dL Glucose (74-99) mg/dL POC Glucose (mg/dL) 162 H 133 H 169 H (70-110) mg/dL 05/31/25 05/31/25 05/31/25 Range/Units 05:52 08:27 08:27 RBC 2.31 L (4.10-5.20) 10*6/uL Hgb 7.9 L (12.0-15.0) g/dL Hct 23.9 L (37.2-46.3) % MCV 103.5 H (80.0-97.0) fL MCH 34.2 H (27.0-32.0) pg Eosinophils # 1.15 H (0.04-0.35) 10*3/uL Sodium 135 L (137-145) mmol/L BUN 27 H (7-17) mg/dL Creatinine 5.39 H (0.52-1.04) mg/dL Glucose 161 H (74-99) mg/dL POC Glucose (mg/dL) 176 H (70-110) mg/dL 05/31/25 Range/Units 11:25 RBC (4.10-5.20) 10*6/uL Hgb (12.0-15.0) g/dL Hct (37.2-46.3) % MCV (80.0-97.0) fL MCH (27.0-32.0) pg Eosinophils # (0.04-0.35) 10*3/uL Sodium (137-145) mmol/L BUN (7-17) mg/dL Creatinine (0.52-1.04) mg/dL Glucose (74-99) mg/dL POC Glucose (mg/dL) 120 H (70-110) mg/dL
[2025-05-31 16:16] LABS: Glucose,Whole Blood 142 mg/dL (70-110)
[2025-05-31 20:08] LABS: Glucose,Whole Blood 290 mg/dL (70-110)
[2025-06-01 02:45] LABS: Glucose,Whole Blood 109 mg/dL (70-110)
[2025-06-01 06:24] LABS: Glucose,Whole Blood 180 mg/dL (70-110)
[2025-06-01 07:05] LABS: Basophils # (A) 0.06 10*3/uL (0.00-0.10); Basophils % (A) 0.8 %; Eosinophils # (A) 1.09 10*3/uL (0.04-0.35); Eosinophils % (A) 14.3 %; HCT 26.7 % (37.2-46.3); HGB 8.6 g/dL (12.0-15.0); Lymphocytes # (A) 1.27 10*3/uL (0.90-5.00); Lymphocytes % (A) 16.7 %; MCH 33.5 pg (27.0-32.0); MCHC 32.2 g/dL (32.0-37.0); MCV 103.9 fL (80.0-97.0); Monocytes # (A) 0.53 10*3/uL (0.20-1.00); Monocytes % (A) 7.0 %; Neutrophils # (A) 4.63 10*3/uL (1.80-7.70); Neutrophils % (A) 60.8 %; Platelet Count 219 10*3/uL (140-440); RBC 2.57 10*6/uL (4.10-5.20); RDW 18.3 % (11.5-14.5); WBC 7.61 10*3/uL (4.50-10.00)
[2025-06-01 07:25] LABS: African American GFR (CKD) 16 (>60 ml/min/1.73 sqM); Anion Gap 10 mmol/L; Blood Urea Nitrogen 26 mg/dL (7-17); Calcium 9.3 mg/dL (8.4-10.2); Carbon Dioxide 27 mmol/L (22-30); Chloride 97 mmol/L (98-107); Glucose 133 mg/dL (74-99); Non-African American GFR(CKD) 14 (>60 ml/min/1.73 sqM); Potassium 5.1 mmol/L (3.5-5.1); Sodium 134 mmol/L (137-145)
--- NOTE | 2025-06-01 10:34 | P.PN ---
Subjective Patient is seen in follow-up for end-stage renal disease. No problems with dialysis yesterday. Hemodynamically stable. No active complaints. Tolerating oral intake. Feels nauseous at times. Vital signs are stable. General: No acute distress. HEENT: Head exam is unremarkable. On nasal cannula. LUNGS: No audible rhonchi or wheezes. HEART: Rate and Rhythm are regular. ABDOMEN: Nontender. EXTREMITITES: No edema. Objective - Vital Signs Vital signs: Vital Signs Temp 98.0 F 06/01/25 03:54 Pulse 70 06/01/25 03:54 Resp 14 06/01/25 03:54 BP 150/83 06/01/25 03:54 Pulse Ox 100 06/01/25 03:54 FiO2 Intake & Output 05/31/25 06/01/25 06/01/25 18:59 06:59 18:59 Intake Total 2081 982 592 Output Total 7600 Balance -5519 982 592 Weight 75.614 kg Intake: IV 10 Invasive Line 4 10 Oral 1671 982 592 Hemodialysis 400 Output: Hemodialysis 4000 Hemodialysis Net Amount 3600 - Labs CBC & Chem 7: 06/01/25 05:50 06/01/25 05:50 Labs: Abnormal Lab Results - Last 24 Hours (Table) 05/31/25 05/31/25 05/31/25 Range/Units 11:25 16:14 20:06 RBC (4.10-5.20) 10*6/uL Hgb (12.0-15.0) g/dL Hct (37.2-46.3) % MCV (80.0-97.0) fL MCH (27.0-32.0) pg Eosinophils # (0.04-0.35) 10*3/uL Sodium (137-145) mmol/L Chloride (98-107) mmol/L BUN (7-17) mg/dL Creatinine (0.52-1.04) mg/dL Glucose (74-99) mg/dL POC Glucose (mg/dL) 120 H 142 H 290 H (70-110) mg/dL 06/01/25 06/01/25 06/01/25 Range/Units 05:50 05:50 06:21 RBC 2.57 L (4.10-5.20) 10*6/uL Hgb 8.6 L (12.0-15.0) g/dL Hct 26.7 L (37.2-46.3) % MCV 103.9 H (80.0-97.0) fL MCH 33.5 H (27.0-32.0) pg Eosinophils # 1.09 H (0.04-0.35) 10*3/uL Sodium 134 L (137-145) mmol/L Chloride 97 L (98-107) mmol/L BUN 26 H (7-17) mg/dL Creatinine 4.00 H (0.52-1.04) mg/dL Glucose 133 H (74-99) mg/dL POC Glucose (mg/dL) 180 H (70-110) mg/dL Assessment and Plan Plan: Assessment: 1. End-stage renal disease maintained on hemodialysis on Wednesday. 2. DKA status post insulin drip. Patient has brittle diabetes. 3. Hypertension with chronic kidney disease. Stable. 4. History of pericardial effusion. 5. Metabolic acidosis secondary to DKA and lactic acidosis. Improved. 6. Anemia of chronic kidney disease. Iron replete. Plan: Hemodialysis tomorrow. SHE outpatient. Stressed compliance with low-sodium diet and fluid restriction of less than 50 ounces per day.
[2025-06-01 11:37] LABS: Glucose,Whole Blood 120 mg/dL (70-110)
[2025-06-01 11:42] VITALS: BMI 25.3
--- NOTE | 2025-06-01 13:33 | P.PN ---
Subjective Progress Note Date: 06/01/25 Patient is a 35-year-old white female with significant past medical history including uncontrolled hypertension, uncontrolled diabetes mellitus, end-stage renal disease (maintained on hemodialysis 4 times weekly), TIA/CVA, optic neuritis, among other things. Patient came to the emergency department yest erd afternoon with concerned of high blood sugars. Additionally, weak and fatigued. Nausea without vomiting. Blood sugar was found to be elevated at 961. Mild case of metabolic acidosis with a serum bicarb of 21 and anion gap of 16. Acetone positive. She was previously started on the DKA protocol. Her blood pressure is extremely hypertensive, currently 203/109 mmHg. Also, endorsing some shortness of breath. Chest x-ray consistent with pulmonary edema. She denies missing any of her antihypertensive medications. Denies missing any treatments of hemodialysis. Did receive a emergent hemodialysis treatment earlier yesterday, and a total of 3 L was removed. Most recent labs including a CBC with a WBC count of 10.3, hemoglobin 8.5 g/dL, platelets 244. CMP: Sodium 126, potassium 4.5, chloride 86, serum bicarb 28, anion gap 12, BUN 33, creatinine 3.52, glucose is currently down to 120. Lactic 2.5. LFTs mildly elevated. Troponin less than 0.012. Currently being seen in the intensive care unit. Alert and oriented. Nondistressed. She is on 2 L/min nasal cannula. Breathing has improved. Currently, her blood pressure is severely elevated at 203/109 mmHg. I asked the nurse to start this patient on Cleviprex. Her home antihypertensive medications have been resumed including Procardia XL 90 mg twice daily, Imdur 120 mg p.o. daily, Catapres 0.3 mg p.o. 3 times daily, and Coreg 50 mg p.o. twice daily. She denies any headache, vision changes, dizziness, chest pain, palpitations, edema. Her blood sugar improved. Denies any recent URI infections or sick contacts. States she has been compliant with her insulin therapy. No nausea or vomiting. A renal diet has been resumed. 05/29/2025, the patient is being seen for a follow-up. The patient is calm and comfortable and she is awake and alert. Some episodic nausea still present. She is currently on 2 L of oxygen by nasal cannula. No significant hyperglycemia. No hypoglycemia. The patient is on Lantus insulin 11 units twice daily and 6 units of NovoLog with meals. The patient underwent hemodialysis yesterday with a total of 2.5 L of ultrafiltration. White cell count at 9.4 with a hemoglobin 8.7 and a platelet count of 269. BUN is 21 with a creatinine of 3.3. Potassium level is at 4.3. Blood pressure is under adequate control and patient remains on clonidine 0.3 mg p.o. 3 times daily, Coreg 30 mg p.o. twice daily, Imdur 120 mg p.o. daily, nifedipine XL 90 mg p.o. twice a day. Rest of the medications are essentially unchanged. She is awake and alert and communicating. No other significant events overnight. On 05/30/2025, the patient is being seen on the medical floor. The patient was transferred out of the intensive care yesterday. This morning, the patient is on room air oxygen. Continues to have some episodes of dizziness and nausea. Nevertheless, the blood sugar is under good control and the patient's blood pressure is also under good control. She remains on Lantus insulin 11 units twice daily and NovoLog 6 units 3 times daily with meals. In terms of blood pressure control, she remains on Coreg 50 mg p.o. twice a day, Catapres 0.3 mg p.o. 3 times daily, Imdur 120 mg p.o. daily and Procardia XL 90 mg p.o. twice a day. She is complaining of diffuse bodyaches. The white cell count at 7.7 with a heme of 7.8 and a platelet count of 217. BUN is 14 with a creatinine of 3.0 and a sodium levels at 133 and a potassium levels of 4.4. Last hemodialysis session was done yesterday which is 05/29/2025. I was going 05/31/2025, the patient remains nauseous. She is undergoing hemodialysis. Blood pressure under good control. Blood sugars under good control. Medications are unchanged. Aware to go to the appointment with a hemoglobin of 7.9 and platelet count of 207. BUN 27 with a creatinine of 5.3 and sodium is at 135. She is on 2 L of oxygen by nasal cannula with pulse ox of 99%. Denies having any significant respiratory distress. The patient remains on Lantus insulin 11 units twice daily and 6 units of NovoLog with meals. Blood pressure medications are unchanged. Tolerating dialysis well.Labs from today shows a BUN of 27 with a creatinine of 5.3. Sodium is at 135. Potassium is at 4.7. Hemoglobin 7.9 with a white cell count of 8.9. On 06/01/2025, the patient is being seen for a follow-up. Condition is stable. Remains on room air oxygen. Underwent hemodialysis yesterday. Episodic nausea. Complaining of diffuse bodyaches and the patient is currently on Neurontin and Percocet. Rest of the medications are essentially unchanged. Blood sugars under adequate control and the patient remains on Lantus insulin 11 units twice daily and NovoLog 6 units with meals. Blood pressure medications include Procardia XL 90 mg p.o. twice a day, Coreg 50 mg p.o. twice daily and clonidine 0.3 mg 3 times daily and the patient is also on Imdur 120 mg p.o. daily. No altered mentation. Lethargic and sleepy. Objective - Vital Signs Vital signs: Vital Signs Temp 98.0 F 06/01/25 03:54 Pulse 70 06/01/25 03:54 Resp 14 06/01/25 03:54 BP 150/83 06/01/25 03:54 Pulse Ox 100 06/01/25 03:54 FiO2 Intake & Output 05/31/25 06/01/25 06/01/25 18:59 06:59 18:59 Intake Total 2081 982 592 Output Total 7600 Balance -5519 982 592 Weight 75.614 kg Intake: IV 10 Invasive Line 4 10 Oral 1671 982 592 Hemodialysis 400 Output: Hemodialysis 4000 Hemodialysis Net Amount 3600 - Exam GENERAL EXAM: Alert, 35-year-old female, comfortable in no apparent distress., Currently on room air oxygen HEAD: Normocephalic and atraumatic EYES: Normal reaction of pupils, equal size. NOSE: Clear with pink turbinates. THROAT: No erythema or exudates. NECK: No masses, no JVD. CHEST: No chest wall deformity. LUNGS: Equal air entry with minimal bibasilar inspiratory crackles. No c onversational dyspnea or accessory muscle use.. CVS: S1 and S2 normal with no audible murmur, regular rhythm. No extra heart sounds ABDOMEN: No hepatosplenomegaly, active bowel sounds, no guarding or rigidity. SPINE: No scoliosis or deformity SKIN: No rashes CENTRAL NERVOUS SYSTEM: Alert and oriented x 3, cranial nerves II through XII intact, no focal deficits, tone is normal in all 4 extremities. EXTREMITIES: There is no peripheral edema, clubbing, or cyanosis. Peripheral pulses are intact. - Labs CBC & Chem 7: 06/01/25 05:50 06/01/25 05:50 Labs: Abnormal Lab Results - Last 24 Hours (Table) 05/31/25 05/31/25 05/31/25 Range/Units 11:25 16:14 20:06 RBC (4.10-5.20) 10*6/uL Hgb (12.0-15.0) g/dL Hct (37.2-46.3) % MCV (80.0-97.0) fL MCH (27.0-32.0) pg Eosinophils # (0.04-0.35) 10*3/uL Sodium (137-145) mmol/L Chloride (98-107) mmol/L BUN (7-17) mg/dL Creatinine (0.52-1.04) mg/dL Glucose (74-99) mg/dL POC Glucose (mg/dL) 120 H 142 H 290 H (70-110) mg/dL 06/01/25 06/01/25 06/01/25 Range/Units 05:50 05:50 06:21 RBC 2.57 L (4.10-5.20) 10*6/uL Hgb 8.6 L (12.0-15.0) g/dL Hct 26.7 L (37.2-46.3) % MCV 103.9 H (80.0-97.0) fL MCH 33.5 H (27.0-32.0) pg Eosinophils # 1.09 H (0.04-0.35) 10*3/uL Sodium 134 L (137-145) mmol/L Chloride 97 L (98-107) mmol/L BUN 26 H (7-17) mg/dL Creatinine 4.00 H (0.52-1.04) mg/dL Glucose 133 H (74-99) mg/dL POC Glucose (mg/dL) 180 H (70-110) mg/dL Assessment and Plan Assessment: Acute diabetic ketoacidosis, recovered and the patient is currently on Lantus insulin 11 units twice daily and NovoLog 6 units with meals and she has demonstrated adequate blood sugar control. No significant metabolic acidosis. Hypertensive, stable blood pressure Acute pulmonary edema, improved postdialysis and the patient is currently on room air oxygen ox alternating with nasal cannula 2 L/min nasal Acute hypoxemic respiratory failure, recovered Diabetes mellitus, insulin-dependent End-stage renal disease, maintained on hemodialysis 4 times a week, patient had a hemodialysis session on 05/29/2025. Electrolytes are all stable. Severe hyperkalemia, improved Hypervolemic hyponatremia Anemia of chronic disease History of CVA/TIA History of optic neuritis history of hypothyroidism Plan: Patient currently on 2 L of oxygen by nasal cannula. Patient is alternating between room air oxygen and nasal cannula Continue Lantus insulin 11 units twice daily and NovoLog 6 units with meals Adequate blood pressure control. Home antihypertensive medications have been resumed including Procardia XL 90 mg twice daily, Imdur 120 mg p.o. daily, Catapres 0.3 mg p.o. 3 times daily, and Coreg 50 mg p.o. twice daily. Hydralazine 50 mg p.o. 3 times daily. Hemodialysis performed on 05/31/2025 Patient is on medical floor Continues to have nausea. Treatment is internal medicine. Pain control with Neurontin and Percocet. Time with Patient: Greater than 30
--- NOTE | 2025-06-01 15:11 | P.PN ---
Subjective Progress Note Date: 06/01/25 HPI: 35-year-old female known to me from her medical hospitalization came in with nausea vomiting found to be in DKA with mild metabolic acidosis anion gap of 16. Patient was on IV insulin anion gap closed patient is transition to subcutaneous insulin although her blood sugars have bit low. Patient blood pressure was high on admission. Patient is end-stage renal disease hemodialysis dependent patient was also volume overloaded and had an emergent hemodialysis with removal of 3 L of fluid. LFTs are minimally elevated because of hepatic congestion. Patient is complaining of generalized bodyaches. Subjective: 05/30/2025: Patient seen at bedside. No significant overnight events. States she is having some left shoulder pain that goes down near her chest, but is reproducible on palpation. Pertinent positives and negatives discussed above, a complete review of systems was preformed and all the other sytems were negative. Vitals Signs Reveiwed. GENERAL: The patient is alert and oriented x3, not in any acute distress. Well developed, well nourished. HEENT: Pupils are round and equally reacting to light. EOMI. No scleral icterus. No conjunctival pallor. Normocephalic, atraumatic. No pharyngeal erythema. No thyromegaly. CARDIOVASCULAR: S1 and S2 present. No murmurs, rubs, or gallops. PULMONARY: Chest is clear to auscultation, no wheezing or crackles. ABDOMEN: Soft, nontender, nondistended, normoactive bowel sounds. No palpable organomegaly. MUSCULOSKELETAL: No joint swelling or deformity. EXTREMITIES: No cyanosis, clubbing, or pedal edema. NEUROLOGICAL: Gross neurological examination did not reveal any focal deficits. SKIN: No rashes. Data Reveiwed Today: Patient Labs: WBC 7.61, hemoglobin 8.6, MCV 103.9, sodium 134, potassium 5.1, BUN 26, creatinine 4, glucose 133. Imaging: No new imaging Assessment and plan -Diabetic ketoacidosis: Anion gap closed, continue Lantus insulin 11 units twice daily and NovoLog 6 units twice daily. Patient will be transferred to medical floor as long as she remains hemodynamically stable after dialysis. - Pending auth for rehab facility in [place] - Iron studies within normal limits outside of transferrin 195 and ferritin 570. - Increase trazodone to 100 mg at bedtime for insomnia - Hyponatremia: Secondary to end-stage renal disease mainly there is a component of hyperosmolar hyponatremia from elevated blood sugars - Volume overload, acute pulmonary edema secondary to end-stage renal disease status post hemodialysis patient is presently on 2 L of oxygen - Acute hypoxic respiratory failure secondary to pulmonary edema improving at this time - Type 2 diabetes mellitus uncontrolled low blood sugars management as mentioned above - Hyperkalemia patient always has issues with hyperkalemia patient is on regular scheduled Lokelma along with hemodialysis patient did undergo hemodialysis - Anemia of chronic kidney disease - Hypothyroidism - Leukocytosis reactive secondary to DKA: Resolved Accelerated hypertension: Patient was resumed on home regimen with improved bl ood pressures - Diabetic peripheral neuropathy - Seizure disorder for which patient is on Depakote F none E PhosLo N renal diet A as tolerated DVT ppx: Subcutaneous heparin GI ppx: Famotidine 20 mg daily Code Status: Full code Anticipated discharge place: To home Anticipated discharge time: Discharged to [facility] in [place] tomorrow Objective - Vital Signs Vital signs: Vital Signs Temp 97.2 F L 06/01/25 08:40 Pulse 69 06/01/25 11:35 Resp 16 06/01/25 11:35 BP 143/82 06/01/25 11:35 Pulse Ox 100 06/01/25 11:35 FiO2 Intake & Output 05/31/25 06/01/25 06/01/25 18:59 06:59 18:59 Intake Total 2081 982 592 Output Total 7600 Balance -5519 982 592 Weight 75.614 kg 75.614 kg Intake: IV 10 Invasive Line 4 10 Oral 1671 982 592 Hemodialysis 400 Output: Hemodialysis 4000 Hemodialysis Net Amount 3600 - Labs CBC & Chem 7: 06/01/25 05:50 06/01/25 05:50 Labs: Abnormal Lab Results - Last 24 Hours (Table) 05/31/25 05/31/25 06/01/25 Range/Units 16:14 20:06 05:50 RBC 2.57 L (4.10-5.20) 10*6/uL Hgb 8.6 L (12.0-15.0) g/dL Hct 26.7 L (37.2-46.3) % MCV 103.9 H (80.0-97.0) fL MCH 33.5 H (27.0-32.0) pg Eosinophils # 1.09 H (0.04-0.35) 10*3/uL Sodium (137-145) mmol/L Chloride (98-107) mmol/L BUN (7-17) mg/dL Creatinine (0.52-1.04) mg/dL Glucose (74-99) mg/dL POC Glucose (mg/dL) 142 H 290 H (70-110) mg/dL 06/01/25 06/01/25 06/01/25 Range/Units 05:50 06:21 11:36 RBC (4.10-5.20) 10*6/uL Hgb (12.0-15.0) g/dL Hct (37.2-46.3) % MCV (80.0-97.0) fL MCH (27.0-32.0) pg Eosinophils # (0.04-0.35) 10*3/uL Sodium 134 L (137-145) mmol/L Chloride 97 L (98-107) mmol/L BUN 26 H (7-17) mg/dL Creatinine 4.00 H (0.52-1.04) mg/dL Glucose 133 H (74-99) mg/dL POC Glucose (mg/dL) 180 H 120 H (70-110) mg/dL
[2025-06-01 16:33] LABS: Glucose,Whole Blood 186 mg/dL (70-110)
[2025-06-01 20:00] LABS: Glucose,Whole Blood 180 mg/dL (70-110)
[2025-06-02 02:01] LABS: Glucose,Whole Blood 222 mg/dL (70-110)
[2025-06-02 06:06] LABS: Glucose,Whole Blood 145 mg/dL (70-110)
[2025-06-02] MEDS: LIDOCAINE-PRILOCAINE 2.5-2.5% CREAM 5 GM TUBE TOPICAL PRN (10:47)
[2025-06-02 11:17] LABS: Glucose,Whole Blood 194 mg/dL (70-110)
--- NOTE | 2025-06-02 11:31 | P.PN ---
Subjective Patient is seen for follow-up for end-stage renal disease. Scheduled for hemodialysis today. No significant complaints today. Objective - Vital Signs Vital signs: Vital Signs Temp 97.1 F L 06/02/25 08:00 Pulse 74 06/02/25 11:13 Resp 18 06/02/25 11:13 BP 154/88 06/02/25 11:13 Pulse Ox 100 06/02/25 11:13 FiO2 Intake & Output 06/01/25 06/02/25 06/02/25 18:59 06:59 18:59 Intake Total 651 760 222 Output Total 222 Balance 429 760 222 Weight 75.614 kg 72 kg Intake: Oral 651 760 222 Output: Urine 222 Other: # Voids 1 1 - Exam Patient is awake, comfortable, no acute distress Examination of the heart S1 and S2 Examination of the lungs bilateral breath sounds are heard Abdomen is soft nontender Examination lower extremity shows trace edema - Labs CBC & Chem 7: 06/01/25 05:50 06/01/25 05:50 Labs: Abnormal Lab Results - Last 24 Hours (Table) 06/01/25 06/01/25 06/01/25 Range/Units 11:36 16:32 19:58 POC Glucose (mg/dL) 120 H 186 H 180 H (70-110) mg/dL 06/02/25 06/02/25 06/02/25 Range/Units 01:59 06:05 11:15 POC Glucose (mg/dL) 222 H 145 H 194 H (70-110) mg/dL Assessment and Plan Assessment: 1. End-stage renal disease maintained on hemodialysis on Wednesday. 2. DKA status post insulin drip. Patient has brittle diabetes. 3. Hypertension with chronic kidney disease. Stable. 4. History of pericardial effusion. 5. Metabolic acidosis secondary to DKA and lactic acidosis. Improved. 6. Anemia of chronic kidney disease. Iron replete. Plan: Hemodialysis today Continue to maintain salt and fluid restriction
[2025-06-02 12:13] LABS: Basophils # (A) 0.04 10*3/uL (0.00-0.10); Basophils % (A) 0.5 %; Eosinophils # (A) 1.17 10*3/uL (0.04-0.35); Eosinophils % (A) 13.8 %; HCT 25.8 % (37.2-46.3); HGB 8.1 g/dL (12.0-15.0); Lymphocytes # (A) 0.95 10*3/uL (0.90-5.00); Lymphocytes % (A) 11.2 %; MCH 32.9 pg (27.0-32.0); MCHC 31.4 g/dL (32.0-37.0); MCV 104.9 fL (80.0-97.0); Monocytes # (A) 0.59 10*3/uL (0.20-1.00); Monocytes % (A) 7.0 %; Neutrophils # (A) 5.68 10*3/uL (1.80-7.70); Neutrophils % (A) 67.3 %; Platelet Count 194 10*3/uL (140-440); RBC 2.46 10*6/uL (4.10-5.20); RDW 18.4 % (11.5-14.5); WBC 8.45 10*3/uL (4.50-10.00)
[2025-06-02 12:29] LABS: African American GFR (CKD) 9 (>60 ml/min/1.73 sqM); Anion Gap 12 mmol/L; Blood Urea Nitrogen 49 mg/dL (7-17); Calcium 9.4 mg/dL (8.4-10.2); Carbon Dioxide 23 mmol/L (22-30); Chloride 97 mmol/L (98-107); Glucose 133 mg/dL (74-99); Non-African American GFR(CKD) 8 (>60 ml/min/1.73 sqM); Sodium 132 mmol/L (137-145)
[2025-06-02 12:33] LABS: Potassium 6.2 mmol/L (3.5-5.1)
--- NOTE | 2025-06-02 14:24 | P.PN ---
Subjective Progress Note Date: 06/02/25 HPI: 35-year-old female known to me from her medical hospitalization came in with nausea vomiting found to be in DKA with mild metabolic acidosis anion gap of 16. Patient was on IV insulin anion gap closed patient is transition to subcutaneous insulin although her blood sugars have bit low. Patient blood pressure was high on admission. Patient is end-stage renal disease hemodialysis dependent patient was also volume overloaded and had an emergent hemodialysis with removal of 3 L of fluid. LFTs are minimally elevated because of hepatic congestion. Patient is complaining of generalized bodyaches. Subjective: 06/02/2025: Patient seen at bedside. No significant overnight events. States the nausea continues to persist, has not vomited but constant nausea. Patient has no other complaints concerns at this time. States she would like to go to the [place] rehab facility. Pertinent positives and negatives discussed above, a complete review of systems was preformed and all the other sytems were negative. Vitals Signs Reveiwed. GENERAL: The patient is alert and oriented x3, not in any acute distress. Well developed, well nourished. HEENT: Pupils are round and equally reacting to light. EOMI. No scleral icterus. No conjunctival pallor. Normocephalic, atraumatic. No pharyngeal erythema. No thyromegaly. CARDIOVASCULAR: S1 and S2 present. No murmurs, rubs, or gallops. PULMONARY: Chest is clear to auscultation, no wheezing or crackles. ABDOMEN: Soft, nontender, nondistended, normoactive bowel sounds. No palpable organomegaly. MUSCULOSKELETAL: No joint swelling or deformity. EXTREMITIES: No cyanosis, clubbing, or pedal edema. NEUROLOGICAL: Gross neurological examination did not reveal any focal deficits. SKIN: No rashes. Data Reveiwed Today: Patient Labs: WBC 8.45, hemoglobin 8.1, MCV 104.9, platelets 194, sodium 132, potassium 6.2, BUN 49, creatinine 6.14, glucose 133. Imaging: No new imaging Assessment and plan -Diabetic ketoacidosis: Anion gap closed, continue Lantus insulin 11 units twice daily and NovoLog 6 units twice daily. Patient being transferred from cardiac floor to [facility] while waiting for placement at rehab facility. Undergoing hemodialysis today - Pending auth for rehab facility in [place] -Increased frequency of Zofran to every 6 for better nausea coverage - Iron studies within normal limits outside of transferrin 195 and ferritin 570. - Increase trazodone to 100 mg at bedtime for insomnia - Hyponatremia: Secondary to end-stage renal disease mainly there is a component of hyperosmolar hyponatremia from elevated blood sugars - Volume overload, acute pulmonary edema secondary to end-stage renal disease status post hemodialysis patient is presently on 2 L of oxygen - Acute hypoxic respiratory failure secondary to pulmonary edema improving at this time - Type 2 diabetes mellitus uncontrolled low blood sugars management as mentioned above - Hyperkalemia patient always has issues with hyperkalemia patient is on regular scheduled Lokelma along with hemodialysis patient did undergo hemodialysis - Anemia of chronic kidney disease - Hypothyroidism - Leukocytosis reactive secondary to DKA: Resolved Accelerated hypertension: Patient was resumed on home regimen with improved blood pressures - Diabetic peripheral neuropathy - Seizure disorder for which patient is on Depakote F none E PhosLo N renal diet A as tolerated DVT ppx: Subcutaneous heparin GI ppx: Famotidine 20 mg daily Code Status: Full code Anticipated discharge place: To home Anticipated discharge time: Discharged to [facility] in [place] tomorrow Objective - Vital Signs Vital signs: Vital Signs Temp 97.1 F L 06/02/25 08:00 Pulse 74 06/02/25 11:13 Resp 18 06/02/25 11:13 BP 154/88 06/02/25 11:13 Pulse Ox 100 06/02/25 11:13 FiO2 Intake & Output 06/01/25 06/02/25 06/02/25 18:59 06:59 18:59 Intake Total 651 760 762 Output Total 222 Balance 429 760 762 Weight 75.614 kg 72 kg Intake: Oral 651 760 762 Output: Urine 222 Other: # Voids 1 1 - Labs CBC & Chem 7: 06/02/25 10:40 06/02/25 10:40 Labs: Abnormal Lab Results - Last 24 Hours (Table) 06/01/25 06/01/25 06/02/25 Range/Units 16:32 19:58 01:59 RBC (4.10-5.20) 10*6/uL Hgb (12.0-15.0) g/dL Hct (37.2-46.3) % MCV (80.0-97.0) fL MCH (27.0-32.0) pg MCHC (32.0-37.0) g/dL Eosinophils # (0.04-0.35) 10*3/uL Sodium (137-145) mmol/L Potassium (3.5-5.1) mmol/L Chloride (98-107) mmol/L BUN (7-17) mg/dL Creatinine (0.52-1.04) mg/dL Glucose (74-99) mg/dL POC Glucose (mg/dL) 186 H 180 H 222 H (70-110) mg/dL 06/02/25 06/02/25 06/02/25 Range/Units 06:05 10:40 10:40 RBC 2.46 L (4.10-5.20) 10*6/uL Hgb 8.1 L (12.0-15.0) g/dL Hct 25.8 L (37.2-46.3) % MCV 104.9 H (80.0-97.0) fL MCH 32.9 H (27.0-32.0) pg MCHC 31.4 L (32.0-37.0) g/dL Eosinophils # 1.17 H (0.04-0.35) 10*3/uL Sodium 132 L (137-145) mmol/L Potassium 6.2 H* (3.5-5.1) mmol/L Chloride 97 L (98-107) mmol/L BUN 49 H (7-17) mg/dL Creatinine 6.14 H (0.52-1.04) mg/dL Glucose 133 H (74-99) mg/dL POC Glucose (mg/dL) 145 H (70-110) mg/dL 06/02/25 Range/Units 11:15 RBC (4.10-5.20) 10*6/uL Hgb (12.0-15.0) g/dL Hct (37.2-46.3) % MCV (80.0-97.0) fL MCH (27.0-32.0) pg MCHC (32.0-37.0) g/dL Eosinophils # (0.04-0.35) 10*3/uL Sodium (137-145) mmol/L Potassium (3.5-5.1) mmol/L Chloride (98-107) mmol/L BUN (7-17) mg/dL Creatinine (0.52-1.04) mg/dL Glucose (74-99) mg/dL POC Glucose (mg/dL) 194 H (70-110) mg/dL
[2025-06-02] MEDS: ONDANSETRON 4 MG/2 ML VIAL IVP PRN (14:59)
[2025-06-02 16:10] LABS: Glucose,Whole Blood 123 mg/dL (70-110)
--- NOTE | 2025-06-02 17:46 | P.PN ---
Subjective Progress Note Date: 06/02/25 Patient is a 35-year-old white female with significant past medical history including uncontrolled hypertension, uncontrolled diabetes mellitus, end-stage renal disease (maintained on hemodialysis 4 times weekly), TIA/CVA, optic neuritis, among other things. Patient came to the emergency department yest erd afternoon with concerned of high blood sugars. Additionally, weak and fatigued. Nausea without vomiting. Blood sugar was found to be elevated at 961. Mild case of metabolic acidosis with a serum bicarb of 21 and anion gap of 16. Acetone positive. She was previously started on the DKA protocol. Her blood pressure is extremely hypertensive, currently 203/109 mmHg. Also, endorsing some shortness of breath. Chest x-ray consistent with pulmonary edema. She denies missing any of her antihypertensive medications. Denies missing any treatments of hemodialysis. Did receive a emergent hemodialysis treatment earlier yesterday, and a total of 3 L was removed. Most recent labs including a CBC with a WBC count of 10.3, hemoglobin 8.5 g/dL, platelets 244. CMP: Sodium 126, potassium 4.5, chloride 86, serum bicarb 28, anion gap 12, BUN 33, creatinine 3.52, glucose is currently down to 120. Lactic 2.5. LFTs mildly elevated. Troponin less than 0.012. Currently being seen in the intensive care unit. Alert and oriented. Nondistressed. She is on 2 L/min nasal cannula. Breathing has improved. Currently, her blood pressure is severely elevated at 203/109 mmHg. I asked the nurse to start this patient on Cleviprex. Her home antihypertensive medications have been resumed including Procardia XL 90 mg twice daily, Imdur 120 mg p.o. daily, Catapres 0.3 mg p.o. 3 times daily, and Coreg 50 mg p.o. twice daily. She denies any headache, vision changes, dizziness, chest pain, palpitations, edema. Her blood sugar improved. Denies any recent URI infections or sick contacts. States she has been compliant with her insulin therapy. No nausea or vomiting. A renal diet has been resumed. 05/29/2025, the patient is being seen for a follow-up. The patient is calm and comfortable and she is awake and alert. Some episodic nausea still present. She is currently on 2 L of oxygen by nasal cannula. No significant hyperglycemia. No hypoglycemia. The patient is on Lantus insulin 11 units twice daily and 6 units of NovoLog with meals. The patient underwent hemodialysis yesterday with a total of 2.5 L of ultrafiltration. White cell count at 9.4 with a hemoglobin 8.7 and a platelet count of 269. BUN is 21 with a creatinine of 3.3. Potassium level is at 4.3. Blood pressure is under adequate control and patient remains on clonidine 0.3 mg p.o. 3 times daily, Coreg 30 mg p.o. twice daily, Imdur 120 mg p.o. daily, nifedipine XL 90 mg p.o. twice a day. Rest of the medications are essentially unchanged. She is awake and alert and communicating. No other significant events overnight. On 05/30/2025, the patient is being seen on the medical floor. The patient was transferred out of the intensive care yesterday. This morning, the patient is on room air oxygen. Continues to have some episodes of dizziness and nausea. Nevertheless, the blood sugar is under good control and the patient's blood pressure is also under good control. She remains on Lantus insulin 11 units twice daily and NovoLog 6 units 3 times daily with meals. In terms of blood pressure control, she remains on Coreg 50 mg p.o. twice a day, Catapres 0.3 mg p.o. 3 times daily, Imdur 120 mg p.o. daily and Procardia XL 90 mg p.o. twice a day. She is complaining of diffuse bodyaches. The white cell count at 7.7 with a heme of 7.8 and a platelet count of 217. BUN is 14 with a creatinine of 3.0 and a sodium levels at 133 and a potassium levels of 4.4. Last hemodialysis session was done yesterday which is 05/29/2025. I was going 05/31/2025, the patient remains nauseous. She is undergoing hemodialysis. Blood pressure under good control. Blood sugars under good control. Medications are unchanged. Aware to go to the appointment with a hemoglobin of 7.9 and platelet count of 207. BUN 27 with a creatinine of 5.3 and sodium is at 135. She is on 2 L of oxygen by nasal cannula with pulse ox of 99%. Denies having any significant respiratory distress. The patient remains on Lantus insulin 11 units twice daily and 6 units of NovoLog with meals. Blood pressure medications are unchanged. Tolerating dialysis well.Labs from today shows a BUN of 27 with a creatinine of 5.3. Sodium is at 135. Potassium is at 4.7. Hemoglobin 7.9 with a white cell count of 8.9. On 06/01/2025, the patient is being seen for a follow-up. Condition is stable. Remains on room air oxygen. Underwent hemodialysis yesterday. Episodic nausea. Complaining of diffuse bodyaches and the patient is currently on Neurontin and Percocet. Rest of the medications are essentially unchanged. Blood sugars under adequate control and the patient remains on Lantus insulin 11 units twice daily and NovoLog 6 units with meals. Blood pressure medications include Procardia XL 90 mg p.o. twice a day, Coreg 50 mg p.o. twice daily and clonidine 0.3 mg 3 times daily and the patient is also on Imdur 120 mg p.o. daily. No altered mentation. Lethargic and sleepy. 06/02/2025, patient is being seen for a follow-up. Patient is doing well. No specific complaints. Resting comfortably in bed. A bit lethargic, similar to yesterday. Continues to have episodes of nausea without emesis. Tolerating diet. Pending authorization for rehab facility. Maintained on Zofran. Rest of the medications are essentially unchanged. The white cell count of 8.4 with a hemoglobin of 8.1 and a platelet count of 194. BUN is 49 with a creatinine of 6.1. Potassium is 6.2 and nephrology is on the case regarding treatment of hyperkalemia. Blood pressure remains under adequate control for now. Remains on Coreg 50 mg p.o. twice daily, nifedipine XL 90 mg p.o. twice a day and the patient is also on Imdur 120 mg p.o. daily and clonidine 0.3 mg p.o. 3 times daily. The patient is scheduled to undergo hemodialysis today. Objective - Vital Signs Vital signs: Vital Signs Temp 97.1 F L 06/02/25 08:00 Pulse 80 06/02/25 08:00 Resp 20 06/02/25 08:00 BP 127/87 06/02/25 08:00 Pulse Ox 100 06/02/25 08:00 FiO2 Intake & Output 06/01/25 06/02/25 06/02/25 18:59 06:59 18:59 Intake Total 651 760 222 Output Total 222 Balance 429 760 222 Weight 75.614 kg 72 kg Intake: Oral 651 760 222 Output: Urine 222 Other: # Voids 1 1 - Exam GENERAL EXAM: Alert, 35-year-old female, comfortable in no apparent distress., Currently on room air oxygen HEAD: Normocephalic and atraumatic EYES: Normal reaction of pupils, equal size. NOSE: Clear with pink turbinates. THROAT: No erythema or exudates. NECK: No masses, no JVD. CHEST: No chest wall deformity. LUNGS: Equal air entry with minimal bibasilar inspiratory crackles. No conversational dyspnea or accessory muscle use.. CVS: S1 and S2 normal with no audible murmur, regular rhythm. No extra heart s ounds ABDOMEN: No hepatosplenomegaly, active bowel sounds, no guarding or rigidity. SPINE: No scoliosis or deformity SKIN: No rashes CENTRAL NERVOUS SYSTEM: Alert and oriented x 3, cranial nerves II through XII intact, no focal deficits, tone is normal in all 4 extremities. EXTREMITIES: There is no peripheral edema, clubbing, or cyanosis. Peripheral pulses are intact. - Labs CBC & Chem 7: 06/02/25 10:40 06/02/25 10:40 Labs: Abnormal Lab Results - Last 24 Hours (Table) 06/01/25 06/01/25 06/01/25 Range/Units 11:36 16:32 19:58 POC Glucose (mg/dL) 120 H 186 H 180 H (70-110) mg/dL 06/02/25 06/02/25 Range/Units 01:59 06:05 POC Glucose (mg/dL) 222 H 145 H (70-110) mg/dL Assessment and Plan Assessment: Acute diabetic ketoacidosis, recovered and the patient is currently on Lantus insulin 11 units twice daily and NovoLog 6 units with meals and she has demonstrated adequate blood sugar control. No significant metabolic acidosis. Hypertensive, stable blood pressure Acute pulmonary edema, improved postdialysis and the patient is currently on capo m air oxygen ox alternating with nasal cannula 2 L/min nasal Acute hypoxemic respiratory failure, recovered Diabetes mellitus, insulin-dependent End-stage renal disease, maintained on hemodialysis 4 times a week, patient had a hemodialysis session on 05/29/2025. Electrolytes are all stable. Recurrent episodes of hyperkalemia, awaiting hemodialysis Hypervolemic hyponatremia Anemia of chronic disease History of CVA/TIA History of optic neuritis history of hypothyroidism Plan: Patient currently on 2 L of oxygen by nasal cannula. Patient is alternating between room air oxygen and nasal cannula Continue Lantus insulin 11 units twice daily and NovoLog 6 units with meals Adequate blood pressure control. Home antihypertensive medications have been resumed including Procardia XL 90 mg twice daily, Imdur 120 mg p.o. daily, Catapres 0.3 mg p.o. 3 times daily, and Coreg 50 mg p.o. twice daily. Hydralazine 50 mg p.o. 3 times daily. Hemodialysis performed on 05/31/2025, awaiting another session of hemodialysis today. Monitor potassium. Patient is on medical floor Continues to have nausea. Treatment is internal medicine. Pain control with Neurontin and Percocet. Pulmonary critical care services will sign off.
[2025-06-02 20:06] LABS: Glucose,Whole Blood 196 mg/dL (70-110)
[2025-06-03 01:39] LABS: Glucose,Whole Blood 396 mg/dL (70-110)
[2025-06-03] MEDS: INSULIN LISPRO (HumaLOG) 100 UNIT/ML 10 mL VL SQ ONE (02:45)
[2025-06-03 04:05] LABS: African American GFR (CKD) 14 (>60 ml/min/1.73 sqM); Anion Gap 13 mmol/L; Blood Urea Nitrogen 34 mg/dL (7-17); Calcium 9.1 mg/dL (8.4-10.2); Carbon Dioxide 25 mmol/L (22-30); Chloride 94 mmol/L (98-107); Glucose 333 mg/dL (74-99); Non-African American GFR(CKD) 12 (>60 ml/min/1.73 sqM); Potassium 5.2 mmol/L (3.5-5.1); Sodium 132 mmol/L (137-145)
[2025-06-03] MEDS: hydrALAZINE HCL 20 MG/ML 1 ML VIAL IVP PRN (04:45)
[2025-06-03 05:56] LABS: Glucose,Whole Blood 89 mg/dL (70-110)
[2025-06-03] MEDS: LOSARTAN-HCTZ 50-12.5 MG 1 EACH TAB PO SCH (06:17)
--- NOTE | 2025-06-03 08:34 | XR ---
EXAMINATION TYPE: XR shoulder complete LT DATE OF EXAM: 06/03/2025 8:27 AM INDICATION: Patient age:Female; 35 years old; Reason for study: left shoulder pain; pain COMPARISON: Left shoulder radiograph 05/30/2025 TECHNIQUE: The left shoulder was examined in AP, internally rotated and scapular Y projections. . FINDINGS: No evidence of acute osseous pathology, joint dislocation, or soft tissue swelling. Reinitiation of p atchy airspace opacities within the visualized lungs. IMPRESSION: 1. No acute osseous pathology. 2. Patchy airspace opacities redemonstrated within the lungs concerning for pneumonia versus pulmona ry edema. [facility], , 06/03/2025 8:32 AM
[2025-06-03] MEDS ORDERED: LOSARTAN-HCTZ 50-12.5 MG 1 EACH TAB PO SCH (09:00)
--- NOTE | 2025-06-03 10:28 | P.PN ---
Subjective Patient is seen for follow-up for end-stage renal disease. Status post hemodialysis yesterday with UF of 3 L. No significant complaints today. Objective - Vital Signs Vital signs: Vital Signs Temp 98 F 06/03/25 08:00 Pulse 81 06/03/25 08:00 Resp 18 06/03/25 08:00 BP 136/78 06/03/25 08:00 Pulse Ox 98 06/03/25 08:00 FiO2 Intake & Output 06/02/25 06/03/25 06/03/25 18:59 06:59 18:59 Intake Total 4484 1685 240 Output Total 3500 Balance 984 1685 240 Weight 72 kg Intake: Oral 984 1685 240 Hemodialysis 3500 Output: Hemodialysis 500 Hemodialysis Net Amount 3000 - Exam Patient is awake, comfortable, no acute distress Examination of the heart S1 and S2 Examination of the lungs bilateral breath sounds are heard Abdomen is soft nontender Examination lower extremity shows trace edema - Labs CBC & Chem 7: 06/02/25 10:40 06/03/25 03:08 Labs: Abnormal Lab Results - Last 24 Hours (Table) 06/02/25 06/02/25 06/02/25 Range/Units 10:40 10:40 11:15 RBC 2.46 L (4.10-5.20) 10*6/uL Hgb 8.1 L (12.0-15.0) g/dL Hct 25.8 L (37.2-46.3) % MCV 104.9 H (80.0-97.0) fL MCH 32.9 H (27.0-32.0) pg MCHC 31.4 L (32.0-37.0) g/dL Eosinophils # 1.17 H (0.04-0.35) 10*3/uL Sodium 132 L (137-145) mmol/L Potassium 6.2 H* (3.5-5.1) mmol/L Chloride 97 L (98-107) mmol/L BUN 49 H (7-17) mg/dL Creatinine 6.14 H (0.52-1.04) mg/dL Glucose 133 H (74-99) mg/dL POC Glucose (mg/dL) 194 H (70-110) mg/dL 06/02/25 06/02/25 06/03/25 Range/Units 16:09 20:04 01:38 RBC (4.10-5.20) 10*6/uL Hgb (12.0-15.0) g/dL Hct (37.2-46.3) % MCV (80.0-97.0) fL MCH (27.0-32.0) pg MCHC (32.0-37.0) g/dL Eosinophils # (0.04-0.35) 10*3/uL Sodium (137-145) mmol/L Potassium (3.5-5.1) mmol/L Chloride (98-107) mmol/L BUN (7-17) mg/dL Creatinine (0.52-1.04) mg/dL Glucose (74-99) mg/dL POC Glucose (mg/dL) 123 H 196 H 396 H (70-110) mg/dL 06/03/25 Range/Units 03:08 RBC (4.10-5.20) 10*6/uL Hgb (12.0-15.0) g/dL Hct (37.2-46.3) % MCV (80.0-97.0) fL MCH (27.0-32.0) pg MCHC (32.0-37.0) g/dL Eosinophils # (0.04-0.35) 10*3/uL Sodium 132 L (137-145) mmol/L Potassium 5.2 H (3.5-5.1) mmol/L Chloride 94 L (98-107) mmol/L BUN 34 H (7-17) mg/dL Creatinine 4.36 H (0.52-1.04) mg/dL Glucose 333 H (74-99) mg/dL POC Glucose (mg/dL) (70-110) mg/dL Assessment and Plan Assessment: 1. End-stage renal disease maintained on hemodialysis on Wednesday. 2. DKA status post insulin drip. Patient has brittle diabetes. 3. Hypertension with chronic kidney disease. Stable. 4. History of pericardial effusion. 5. Metabolic acidosis secondary to DKA and lactic acidosis. Improved. 6. Anemia of chronic kidney disease. Iron replete. Plan: Hemodialysis in a.m. with UF of 4 to 5 L as tolerated Continue to maintain salt and fluid restriction
[2025-06-03 11:11] LABS: Glucose,Whole Blood 79 mg/dL (70-110)
--- NOTE | 2025-06-03 11:11 | P.CNOR ---
History of Present Illness - [facility] Consult date: 06/03/25 Requesting physician: Noman Frey Consult reason: other (Left shoulder pain) History of present illness: Patient is a pleasant 35-year-old female who is seen examined at bedside for further evaluation of her left shoulder. Patient states she developed left shoulder pain 2 weeks ago without injury. Upon further questioning, she states she has pain over her left trapezius towards the left shoulder. Her pain is exacerbated with abduction of the left shoulder. She does not have any pain with crossarm testing. She has had multiple x-rays taken of her left shoulder without any significant findings. There is no evidence of fracture or dislocation. She again reemphasized that she has not had any injuries to her left shoulder. Significantly, patient was admitted for diabetes ketoacidosis. She has had significant difficulty. She is type I diabetic and kidney failure. She is on dialysis. Currently she is planning for discharge to rehabilitation facility in [place], [place], tomorrow. She is admitted to medicine. She has multiple other medical diagnoses including hyponatremia diabetes mellitus, hyperkalemia, hypothyroidism, hypertension, diabetic peripheral neuropathy, and seizure disorder. Patient is also being seen by nephrology and pulmonology. 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 Past Anesthesia/Blood Transfusion Reactions: Previous Problems w/ Anesthesia Additional Past Anesthesia/Blood Transfusion Reaction / Comm: confusion Past Psychological History: Anxiety, Depression Smoking Status: Current some day smoker Past Alcohol Use History: None Reported Additional Past Alcohol Use History / Comment(s): Patient states she smokes a half a pack over 3-4 days but is trying to quit Past Drug Use History: Marijuana - Past Family History Father History Unknown: Yes Family Medical History: Unable to Obtain Mother History Unknown: Yes Family Medical History: No Reported History Grandfather History Unknown: Yes Family Medical History: Coronary Artery Disease (CAD) Additional Family Medical History / Comment(s): Diabetes mellitus type 2 Medications and Allergies Home Medications Medication Instructions Recorded Confirmed Type Docusate [Colace] 100 mg PO DAILY@0800 02/05/24 05/27/25 History Lidocaine 4% Patch 1 patch TOPICAL DAILY@79902/05/24 05/27/25 History Ipratropium-Albuterol Nebulize 3 ml INHALATION RT-TID PRN each 02/14/24 05/27/25 Rx [Duoneb 0.5 mg-3 mg/3 ml Soln] polyethylene glycoL 3350 [Miralax] 17 gm PO AC-LUNCH #527 gm 02/14/24 05/27/25 Rx Acetaminophen [Tylenol] 650 mg PO Q4H PRN 02/18/24 05/27/25 History Biotene Dry Mouth/Throat 10 ml PO BID PRN 02/18/24 05/27/25 History Melatonin 1 mg PO HS tab 02/25/24 05/27/25 Rx Loratadine [Claritin] 5 mg PO DAILY tab 03/30/24 05/27/25 Rx Aspirin 81 mg PO DAILY@0800 #30 tab 05/18/24 05/27/25 Rx Famotidine [Pepcid] 20 mg PO BID #60 tab 07/11/24 05/27/25 Rx Levothyroxine Sodium [Synthroid] 175 mcg PO DAILY@0600 08/14/24 05/27/25 History Sertraline [Zoloft] 200 mg PO DAILY@0800 08/14/24 05/27/25 History Folic Acid/Vit B Complex and C 0.8 mg PO DAILY 12/20/24 05/27/25 History [Davina-Mayte Tablet] traZODone HCL [Desyrel] 50 mg PO HS #20 tab 01/01/25 05/27/25 Rx Isosorbide Mononitrate ER [Imdur] 120 mg PO DAILY #60 tab 01/02/25 05/27/25 Rx Gabapentin [Neurontin] 100 mg PO BID 30 Days #60 cap 01/03/25 05/27/25 Rx Linagliptin [Tradjenta] 5 mg PO DAILY #30 tab 01/03/25 05/27/25 Rx Insulin Lispro [humaLOG Kwikpen] See Protocol SQ AC-TID 01/22/25 05/27/25 History cloNIDine HCL [Catapres] 0.3 mg PO TID 01/22/25 05/27/25 History carvediloL [Coreg] 50 mg PO BID #120 tablet 02/15/25 05/27/25 Rx Calcium Acetate [PhosLo] 1,334 mg PO TID-W/MEALS 30 Days 02/19/25 05/27/25 Rx #360 tab Ipratropium-Albuterol Nebulize 3 ml INHALATION RT-TID #100 each 02/19/25 05/27/25 Rx [Duoneb 0.5 mg-3 mg/3 ml Soln] ALPRAZolam [Xanax] 0.25 mg PO BID PRN 02/26/25 05/27/25 History Divalproex Sodium [Depakote] 500 mg PO BID@0800,1700 02/26/25 05/27/25 History Lidocaine 5% Cream 1 applic TOPICAL MOTUWETHSA 02/26/25 05/27/25 History Methoxy Peg-Epoetin Beta [Mircera] 100 mcg SQ Q14D 02/26/25 05/27/25 History Insulin Glargine (Lantus) [Lantus 11 unit SQ BID #0 03/18/25 05/27/25 Rx Vial] oxyCODONE HCL/ACETAMINOPHEN 1 tab PO DAILY PRN 04/16/25 05/27/25 History [Percocet 10-325 mg] hydrOXYzine HCL [Atarax] 25 mg PO TID PRN #10 tab 04/24/25 05/27/25 Rx Sodium Zirconium Cyclosilicate 10 gm PO DAILY #30 04/27/25 05/27/25 Rx [Lokelma] NIFEdipine XL [Procardia XL] 90 mg PO Q12HR #60 tab 05/07/25 05/27/25 Rx Ondansetron Odt [Zofran ODT] 4 mg PO Q8HR PRN #10 tab 05/07/25 05/27/25 Rx Pantoprazole [Protonix] 40 mg PO AC-BRKFST #30 tab 05/07/25 05/27/25 Rx INSULIN LISPRO (HumaLOG) [HumaLOG] 8 unit SQ AC-TID #0 each 05/17/25 05/27/25 Rx Mirtazapine 30 mg PO HS 05/19/25 05/27/25 History Allergies Allergy/AdvReac Type Severity Reaction Status Date / Time propoxyphene Allergy Rash/Hives Verified 05/27/25 15:36 [From Darvocet-N] tramadol Allergy Anaphylaxis Verified 05/27/25 15:36 ampicillin [From Unasyn] AdvReac Itching Verified 05/27/25 15:36 ibuprofen [From Motrin] AdvReac unable to Verified 05/27/25 15:36 take due to kidney disease sulbactam [From Unasyn] AdvReac Itching Verified 05/27/25 15:36 venom-honey bee AdvReac passes out Verified 05/27/25 15:36 [bee venom (honey bee)] Physical Examination Physical Exam: Patient is awake, alert, and oriented 3 Vital signs stable Good chest excursion with deep inspiration and expiration Some pain with palpation over the left trapezius No significant pain with palpation over the left shoulder Increased left trapezius pain with abduction of the left shoulder No increased pain with left shoulder flexion and crossarm testing Neurologically intact left upper extremity Tattoos over the left shoulder and left upper extremity Results Pertinent studies: X-rays of the left shoulder taken on 05/30/2025 and 05/04/2025: No significant degenerative change at the left shoulder; no fracture or dislocation at the left shoulder; no obvious osseous abnormality - Labs Labs: Abnormal Lab Results - Last 24 Hours (Table) 06/02/25 06/02/25 06/02/25 Range/Units 10:40 10:40 11:15 RBC 2.46 L (4.10-5.20) 10*6/uL Hgb 8.1 L (12.0-15.0) g/dL Hct 25.8 L (37.2-46.3) % MCV 104.9 H (80.0-97.0) fL MCH 32.9 H (27.0-32.0) pg MCHC 31.4 L (32.0-37.0) g/dL Eosinophils # 1.17 H (0.04-0.35) 10*3/uL Sodium 132 L (137-145) mmol/L Potassium 6.2 H* (3.5-5.1) mmol/L Chloride 97 L (98-107) mmol/L BUN 49 H (7-17) mg/dL Creatinine 6.14 H (0.52-1.04) mg/dL Glucose 133 H (74-99) mg/dL POC Glucose (mg/dL) 194 H (70-110) mg/dL 06/02/25 06/02/25 06/03/25 Range/Units 16:09 20:04 01:38 RBC (4.10-5.20) 10*6/uL Hgb (12.0-15.0) g/dL Hct (37.2-46.3) % MCV (80.0-97.0) fL MCH (27.0-32.0) pg MCHC (32.0-37.0) g/dL Eosinophils # (0.04-0.35) 10*3/uL Sodium (137-145) mmol/L Potassium (3.5-5.1) mmol/L Chloride (98-107) mmol/L BUN (7-17) mg/dL Creatinine (0.52-1.04) mg/dL Glucose (74-99) mg/dL POC Glucose (mg/dL) 123 H 196 H 396 H (70-110) mg/dL 06/03/25 Range/Units 03:08 RBC (4.10-5.20) 10*6/uL Hgb (12.0-15.0) g/dL Hct (37.2-46.3) % MCV (80.0-97.0) fL MCH (27.0-32.0) pg MCHC (32.0-37.0) g/dL Eosinophils # (0.04-0.35) 10*3/uL Sodium 132 L (137-145) mmol/L Potassium 5.2 H (3.5-5.1) mmol/L Chloride 94 L (98-107) mmol/L BUN 34 H (7-17) mg/dL Creatinine 4.36 H (0.52-1.04) mg/dL Glucose 333 H (74-99) mg/dL POC Glucose (mg/dL) (70-110) mg/dL H & H 05/27/25 05/28/25 05/29/25 Range/Units 15:52 05:45 05:24 Hgb 8.5 L 8.3 L 8.7 L (12.0-15.0) g/dL Hct 25.4 L 24.8 L 26.1 L (37.2-46.3) % 05/30/25 05/31/25 06/01/25 Range/Units 03:43 08:27 05:50 Hgb 7.8 L 7.9 L 8.6 L (12.0-15.0) g/dL Hct 24.3 L 23.9 L 26.7 L (37.2-46.3) % 06/02/25 Range/Units 10:40 Hgb 8.1 L (12.0-15.0) g/dL Hct 25.8 L (37.2-46.3) % Coagulation 05/27/25 Range/Units 15:52 INR 1.3 H (<1.2) Result Diagrams: 06/02/25 10:40 06/05/25 05:35 Assessment and Plan Assessment: Assessment: Left shoulder pain x 2 weeks without injury Left trapezius myalgia and spasm Diabetic ketoacidosis Kidney failure on dialysis Diabetes mellitus Hyperkalemia Hypothyroidism Diabetic peripheral neuropathy Seizure disorder (1) Left shoulder pain Current Visit: Yes Status: Acute Code(s): M25.512 - PAIN IN LEFT SHOULDER SNOMED Code(s): 1610578890 (2) Myalgia Current Visit: Yes Status: Acute Code(s): M79.10 - MYALGIA, UNSPECIFIED SITE SNOMED Code(s): 43853145 (3) Hypothyroidism Current Visit: Yes Status: Acute Code(s): E03.9 - HYPOTHYROIDISM, UNSPECIFIED SNOMED Code(s): 66362122 (4) Diabetes mellitus Current Visit: Yes Status: Acute Code(s): E11.9 - TYPE 2 DIABETES MELLITUS WITHOUT COMPLICATIONS SNOMED Code(s): 36044125 (5) Seizure disorder Current Visit: Yes Status: Acute Code(s): G40.909 - EPILEPSY, UNSP, NOT INTRACTABLE, WITHOUT STATUS EPILEPTICUS SNOMED Code(s): 993421150 (6) Peripheral neuropathy Current Visit: Yes Status: Acute Code(s): G62.9 - POLYNEUROPATHY, UNSPECIFIED SNOMED Code(s): 471108503 (7) Ketosis due to diabetes Current Visit: Yes Status: Acute Code(s): E13.10 - OTH DIABETES MELLITUS WITH KETOACIDOSIS WITHOUT COMA SNOMED Code(s): 666648284 (8) Renal failure Current Visit: Yes Status: Acute Code(s): N19 - UNSPECIFIED KIDNEY FAILURE SNOMED Code(s): 33903998 (9) Hyperkalemia Current Visit: No Status: Acute Code(s): E87.5 - HYPERKALEMIA SNOMED Code(s): 50117979 Plan: Plan: 1. Patient states she developed left shoulder pain 2 weeks ago without injury. Upon further questioning, she states she has pain over her left trapezius towards the left shoulder. Her pain is exacerbated with abduction of the left shoulder. She does not have any pain with crossarm testing. She has had multiple x-rays taken of her left shoulder without any significant findings. There is no evidence of fracture or dislocation. She again reemphasized that she has not had any injuries to her left shoulder. He does not have any sign ificant findings on physical examination except some pain with palpation over her left trapezius and some left trapezius pain with abduction of the left shoulder. X-ray imaging does not show any evidence of fracture or dislocation of the left shoulder. There is no significant degenerative change of the left shoulder. Currently, she should continue with all conservative treatment for her left shoulder. She is currently planning for discharge to rehabilitation facility in [place], [place] tomorrow. We did discuss she could work with physical therapy while at rehab for her left trapezius myalgia and spasm. We are not planning for any acute surgical intervention or further evaluation during her admission to the hospital. She may follow-up in the outpatient setting on a as needed basis. 2. Patient will continue to be seen by medicine and multiple other medical providers for her other medical diagnoses Agree with the above history, exam and plan, no further orthopedic intervention required at this time. Karthikeyan Ely MD
[2025-06-03 16:14] LABS: Glucose,Whole Blood 250 mg/dL (70-110)
[2025-06-03 19:59] LABS: Glucose,Whole Blood 208 mg/dL (70-110)
[2025-06-04 02:13] LABS: Glucose,Whole Blood 112 mg/dL (70-110)
--- NOTE | 2025-06-04 05:52 | P.PN ---
Subjective Progress Note Date: 06/03/25 HPI: 35-year-old female known to me from her medical hospitalization came in with nausea vomiting found to be in DKA with mild metabolic acidosis anion gap of 16. Patient was on IV insulin anion gap closed patient is transition to subcutaneous insulin although her blood sugars have bit low. Patient blood pressure was high on admission. Patient is end-stage renal disease hemodialysis dependent patient was also volume overloaded and had an emergent hemodialysis with removal of 3 L of fluid. LFTs are minimally elevated because of hepatic congestion. Patient is complaining of generalized bodyaches. Subjective: 06/02/2025: Patient seen at bedside. No significant overnight events. States the nausea continues to persist, has not vomited but constant nausea. Patient has no other complaints concerns at this time. States she would like to go to the [place] rehab facility. 06/03/2025 Patient is seen in follow-up today currently awaiting to go to [facility] if accepted and insurance authorization is approved. Patient being followed by multiple consultations and orthopedics was consulted for shoulder pain. Patient denies any injuries although is having left shoulder pain. Orthopedics recommending conservative management and outpatient follow-u p. No acute fractures are noted. Patient is maintained on hemodialysis and will receive again tomorrow with nephrology following. Continue current regimen and continue monitoring blood sugars closely AC and at bedtime as well as 2 AM as patient is severely uncontrolled with extreme hyper and hypoglycemia. Review of systems: Constitutional: No reports of fatigue, fever, or chills Cardiovascular: No reports of chest pain or palpitations Respiratory: reports of shortness of breath, no cough GI: No reports of nausea, vomiting, or diarrhea, reports not eating much : No reports of dysuria or retention Neurovascular: reports of generalized weakness and left shoulder pain All medications have been reviewed GENERAL: The patient is alert and oriented x3, not in any acute distress. Well developed, well nourished. Chronically ill-appearing HEENT: Pupils are round and equally reacting to light. EOMI. No scleral icterus. No conjunctival pallor. Normocephalic, atraumatic. No pharyngeal erythema. No thyromegaly. CARDIOVASCULAR: S1 and S2 muffled PULMONARY: Diminished breath sounds bilaterally otherwise chest is clear to auscultation, no wheezing or crackles. ABDOMEN: Soft, nontender, nondistended, normoactive bowel sounds. No palpable organomegaly. MUSCULOSKELETAL: No joint swelling or deformity. EXTREMITIES: No cyanosis, clubbing, or pedal edema. NEUROLOGICAL: Gross neurological examination did not reveal any focal deficits. Diffusely weak SKIN: No rashes. Assessment and plan: -Diabetic ketoacidosis: Anion gap closed, continue Lantus insulin 11 units twice daily and NovoLog 6 units twice daily. -Weakness with gait dysfunction -Nausea, chronic -Left shoulder pain, no acute fractures noted, conservative management per orthopedics - Hyponatremia: Secondary to end-stage renal disease mainly there is a component of hyperosmolar hyponatremia from elevated blood sugars - Volume overload, acute pulmonary edema secondary to end-stage renal disease status post hemodialysis patient is presently on 2 L of oxygen - Acute hypoxic respiratory failure secondary to pulmonary edema improving at this time - Type 2 diabetes mellitus, uncontrolled low blood sugars management as mentioned above - Hyperkalemia patient always has issues with hyperkalemia patient is on regular scheduled Lokelma along with hemodialysis patient did undergo hemodialysis - Anemia of chronic kidney disease - Hypothyroidism - Leukocytosis reactive secondary to DKA: Resolved -Accelerated hypertension, on admission - Diabetic peripheral neuropathy - Seizure disorder for which patient is on Depakote GI prophylaxis DVT prophylaxis Full code Plan: Patient awaiting insurance authorization to ECF as patient may be going to [facility], possible discharge planning on 06/04/2025 Continue hemodialysis with nephrology following and will plan for hemodialysis again on Wednesday Continue monitoring Accu-Cheks AC and at bedtime and encouraged oral intake. Blood sugars have been on the lower side although patient's blood sugars are severely uncontrolled with hyper and hypoglycemia Continue current medications supportive care Patient was seen and evaluated by orthopedics for left shoulder pain with no fractures noted recommending conservative management at this time. Patient to follow-up outpatient as needed The impression and plan of care has been dictated by Margie Urbina, Nurse Practitioner as directed. Dr. Sandi MD I have performed a history and examination and MDM of this patient, discussed the same with the dictator, and agree with the dictator's assessment and plan as written ,documented as a scribe. Based on total visit time, I have performed more than 50% of the visit. Objective - Vital Signs Vital signs: Vital Signs Temp 98 F 06/03/25 08:00 Pulse 81 07/20/25 08:00 Resp 18 06/03/25 08:00 BP 136/78 06/03/25 08:00 Pulse Ox 98 06/03/25 08:00 FiO2 Intake & Output 06/02/25 06/03/25 06/03/25 18:59 06:59 18:59 Intake Total 4484 1685 240 Output Total 3500 Balance 984 1685 240 Weight 72 kg Intake: Oral 984 1685 240 Hemodialysis 3500 Output: Hemodialysis 500 Hemodialysis Net Amount 3000 - Labs CBC & Chem 7: 06/02/25 10:40 06/03/25 03:08 Labs: Abnormal Lab Results - Last 24 Hours (Table) 06/02/25 06/02/25 06/02/25 Range/Units 10:40 10:40 11:15 RBC 2.46 L (4.10-5.20) 10*6/uL Hgb 8.1 L (12.0-15.0) g/dL Hct 25.8 L (37.2-46.3) % MCV 104.9 H (80.0-97.0) fL MCH 32.9 H (27.0-32.0) pg MCHC 31.4 L (32.0-37.0) g/dL Eosinophils # 1.17 H (0.04-0.35) 10*3/uL Sodium 132 L (137-145) mmol/L Potassium 6.2 H* (3.5-5.1) mmol/L Chloride 97 L (98-107) mmol/L BUN 49 H (7-17) mg/dL Creatinine 6.14 H (0.52-1.04) mg/dL Glucose 133 H (74-99) mg/dL POC Glucose (mg/dL) 194 H (70-110) mg/dL 06/02/25 06/02/25 06/03/25 Range/Units 16:09 20:04 01:38 RBC (4.10-5.20) 10*6/uL Hgb (12.0-15.0) g/dL Hct (37.2-46.3) % MCV (80.0-97.0) fL MCH (27.0-32.0) pg MCHC (32.0-37.0) g/dL Eosinophils # (0.04-0.35) 10*3/uL Sodium (137-145) mmol/L Potassium (3.5-5.1) mmol/L Chloride (98-107) mmol/L BUN (7-17) mg/dL Creatinine (0.52-1.04) mg/dL Glucose (74-99) mg/dL POC Glucose (mg/dL) 123 H 196 H 396 H (70-110) mg/dL 06/03/25 Range/Units 03:08 RBC (4.10-5.20) 10*6/uL Hgb (12.0-15.0) g/dL Hct (37.2-46.3) % MCV (80.0-97.0) fL MCH (27.0-32.0) pg MCHC (32.0-37.0) g/dL Eosinophils # (0.04-0.35) 10*3/uL Sodium 132 L (137-145) mmol/L Potassium 5.2 H (3.5-5.1) mmol/L Chloride 94 L (98-107) mmol/L BUN 34 H (7-17) mg/dL Creatinine 4.36 H (0.52-1.04) mg/dL Glucose 333 H (74-99) mg/dL POC Glucose (mg/dL) (70-110) mg/dL
[2025-06-04 06:00] LABS: Glucose,Whole Blood 115 mg/dL (70-110)
--- NOTE | 2025-06-04 10:57 | P.PN ---
Subjective Patient is seen for follow-up for end-stage renal disease. No significant complaints today. Seen on hemodialysis. Goal UF about 5 L. Objective - Vital Signs Vital signs: Vital Signs Temp 97.5 F L 06/04/25 07:55 Pulse 72 06/04/25 07:55 Resp 16 06/04/25 07:55 BP 133/76 06/04/25 07:55 Pulse Ox 98 06/04/25 07:55 FiO2 Intake & Output 06/03/25 06/04/25 06/04/25 18:59 06:59 18:59 Intake Total 1950 1640 960 Balance 1950 1640 960 Weight 72 kg Intake: Oral 1950 1640 960 - Exam Patient is awake, comfortable, no acute distress Examination of the heart S1 and S2 Examination of the lungs bilateral breath sounds are heard Abdomen is soft nontender Examination lower extremity shows 1+ edema - Labs CBC & Chem 7: 06/02/25 10:40 06/03/25 03:08 Labs: Abnormal Lab Results - Last 24 Hours (Table) 06/03/25 06/03/25 06/04/25 Range/Units 16:13 19:58 02:11 POC Glucose (mg/dL) 250 H 208 H 112 H (70-110) mg/dL 06/04/25 Range/Units 05:59 POC Glucose (mg/dL) 115 H (70-110) mg/dL Assessment and Plan Assessment: 1. End-stage renal disease maintained on hemodialysis on Wednesday. 2. DKA status post insulin drip. Patient has brittle diabetes. 3. Hypertension with chronic kidney disease. Stable. 4. History of pericardial effusion. 5. Metabolic acidosis secondary to DKA and lactic acidosis. Improved. 6. Anemia of chronic kidney disease. Iron replete. Plan: Hemodialysis today with goal UF of about 5 L Continue to maintain salt and fluid restriction
[2025-06-04 11:32] LABS: Glucose,Whole Blood 148 mg/dL (70-110)
[2025-06-04 16:24] LABS: Glucose,Whole Blood 307 mg/dL (70-110)
[2025-06-04 20:00] LABS: Glucose,Whole Blood 266 mg/dL (70-110)
[2025-06-05 02:01] LABS: Glucose,Whole Blood 191 mg/dL (70-110)
[2025-06-05 06:11] LABS: Glucose,Whole Blood 153 mg/dL (70-110)
--- NOTE | 2025-06-05 06:46 | P.PN ---
Subjective Progress Note Date: 06/04/25 HPI: 35-year-old female known to me from her medical hospitalization came in with nausea vomiting found to be in DKA with mild metabolic acidosis anion gap of 16. Patient was on IV insulin anion gap closed patient is transition to subcutaneous insulin although her blood sugars have bit low. Patient blood pressure was high on admission. Patient is end-stage renal disease hemodialysis dependent patient was also volume overloaded and had an emergent hemodialysis with removal of 3 L of fluid. LFTs are minimally elevated because of hepatic congestion. Patient is complaining of generalized bodyaches. Subjective: 06/02/2025: Patient seen at bedside. No significant overnight events. States the nausea continues to persist, has not vomited but constant nausea. Patient has no other complaints concerns at this time. States she would like to go to the [place] rehab facility. 06/03/2025 Patient is seen in follow-up today currently awaiting to go to ECF possibly [facility] if accepted and insurance authorization is approved. Patient being followed by multiple consultations and orthopedics was consulted for shoulder pain. Patient denies any injuries although is having left shoulder pain. Orthopedics recommending conservative management and outpatient follow-u p. No acute fractures are noted. Patient is maintained on hemodialysis and will receive again tomorrow with nephrology following. Continue current regimen and continue monitoring blood sugars closely AC and at bedtime as well as 2 AM as patient is severely uncontrolled with extreme hyper and hypoglycemia. 06/04/2025 Patient is seen in follow-up today currently sleeping undergoing hemodialysis a nd is lethargic although arousable. Patient's blood sugars continue to be uncontrolled and have been up and down although appear to be improved today. Patient is undergoing hemodialysis with significant removal today. Patient is maintained on 4 days weekly Wednesday, Wednesday, , Wednesday dialysis and case management following working on possible ECF. According to case management, patient does not qualify and multiple other facilities including [facility], and [facility] have denied the patient. Plan will be for patient to return home with home care. Patient is afebrile with no reported chest pain or palpitations. Patient chronically has persistent nausea although no vomiting reported today. Encouraged increase activity as tolerated and will monitor overnight with possible discharge planning in 24 hours Review of systems: Constitutional: No reports of fatigue, fever, or chills Cardiovascular: No reports of chest pain or palpitations Respiratory: reports of shortness of breath, no cough GI: No reports of nausea, vomiting, or diarrhea, reports not eating much : No reports of dysuria or retention Neurovascular: reports of generalized weakness and left shoulder pain All medications have been reviewed GENERAL: The patient is alert and oriented x3, not in any acute distress. Well developed, well nourished. Chronically ill-appearing HEENT: Pupils are round and equally reacting to light. EOMI. No scleral icterus. No conjunctival pallor. Normocephalic, atraumatic. No pharyngeal erythema. No thyromegaly. CARDIOVASCULAR: S1 and S2 muffled PULMONARY: Diminished breath sounds bilaterally otherwise chest is clear to auscultation, no wheezing or crackles. ABDOMEN: Soft, nontender, nondistended, normoactive bowel sounds. No palpable organomegaly. MUSCULOSKELETAL: No joint swelling or deformity. EXTREMITIES: No cyanosis, clubbing, or pedal edema. NEUROLOGICAL: Gross neurological examination did not reveal any focal deficits. Diffusely weak SKIN: No rashes. Assessment and plan: -Diabetic ketoacidosis: Anion gap closed, continue Lantus insulin 11 units twice daily and NovoLog 6 units twice daily. -Weakness with gait dysfunction, improving -Nausea, chronic -Left shoulder pain, no acute fractures noted, conservative management per orthopedics - Hyponatremia: Secondary to end-stage renal disease mainly there is a component of hyperosmolar hyponatremia from elevated blood sugars - Volume overload, acute pulmonary edema secondary to end-stage renal disease status post hemodialysis patient is presently on 2 L of oxygen - Acute hypoxic respiratory failure secondary to pulmonary edema improving at this time - Type 2 diabetes mellitus, uncontrolled with hyper and hypoglycemia, management as mentioned above - Hyperkalemia patient always has issues with hyperkalemia patient is on regular scheduled Lokelma along with hemodialysis patient did undergo hemodialysis - Anemia of chronic kidney disease - Hypothyroidism - Leukocytosis reactive secondary to DKA: Resolved -Accelerated hypertension, on admission - Diabetic peripheral neuropathy - Seizure disorder for which patient is on Depakote GI prophylaxis DVT prophylaxis Full code Plan: Patient was awaiting acceptance to ECF although all facilities have denied the patient. Multiple other referrals were sent per case management and also refusing to accept the patient. Patient will be arranged to have home care and discharge home possibly in the next 24 hours Continue hemodialysis with nephrology following and currently undergoing hemodialysis at this time. Patient is maintained on Wednesday/Wednesday//Wednesday schedule Continue monitoring Accu-Cheks AC and at bedtime and encouraged oral intake. Blood sugars have been on the lower side although patient's blood sugars are severely uncontrolled with hyper and hypoglycemia Continue current medications and supportive care Patient was seen and evaluated by orthopedics for left shoulder pain with no fractures noted recommending conservative management at this time. Patient to follow-up outpatient as needed Patient to receive hemodialysis again tomorrow per nephrology and will plan for possible discharge planning in the next 24 hours. The impression and plan of care has been dictated by Margie Urbina, Nurse Practitioner as directed. Dr. Roro MD I have performed a history and examination and MDM of this patient, discussed the same with the dictator, and agree with the dictator's assessment and plan as written ,documented as a scribe. Based on total visit time, I have performed more than 50% of the visit. Objective - Vital Signs Vital signs: Vital Signs Temp 97.5 F L 06/04/25 07:55 Pulse 72 06/04/25 07:55 Resp 16 06/04/25 07:55 BP 133/76 06/04/25 07:55 Pulse Ox 98 06/04/25 07:55 FiO2 Intake & Output 06/03/25 06/04/25 06/04/25 18:59 06:59 18:59 Intake Total 1950 1640 960 Balance 1950 1640 960 Weight 72 kg Intake: Oral 1950 1640 960 - Labs CBC & Chem 7: 06/02/25 10:40 06/03/25 03:08 Labs: Abnormal Lab Results - Last 24 Hours (Table) 06/03/25 06/03/25 06/04/25 Range/Units 16:13 19:58 02:11 POC Glucose (mg/dL) 250 H 208 H 112 H (70-110) mg/dL 06/04/25 Range/Units 05:59 POC Glucose (mg/dL) 115 H (70-110) mg/dL
[2025-06-05 06:47] LABS: African American GFR (CKD) 13 (>60 ml/min/1.73 sqM); Anion Gap 15 mmol/L; Blood Urea Nitrogen 38 mg/dL (7-17); Calcium 9.6 mg/dL (8.4-10.2); Carbon Dioxide 20 mmol/L (22-30); Chloride 96 mmol/L (98-107); Glucose 125 mg/dL (74-99); Non-African American GFR(CKD) 11 (>60 ml/min/1.73 sqM); Potassium 6.0 mmol/L (3.5-5.1); Sodium 131 mmol/L (137-145)
--- NOTE | 2025-06-05 11:04 | P.PN ---
Subjective Patient is seen for follow-up for end-stage renal disease. No significant complaints today. Seen on hemodialysis. Goal UF about 5 L. Objective - Vital Signs Vital signs: Vital Signs Temp 98.2 F 06/05/25 08:11 Pulse 82 06/05/25 08:11 Resp 14 06/05/25 08:11 BP 169/81 06/05/25 08:11 Pulse Ox 98 06/05/25 08:11 FiO2 Intake & Output 06/04/25 06/05/25 06/05/25 18:59 06:59 18:59 Intake Total 1840 570 480 Output Total 21885 Balance -8560 570 480 Weight 72.5 kg Intake: Oral 1440 570 480 Hemodialysis 400 Output: Hemodialysis 5400 Hemodialysis Net Amount 5000 - Exam Patient is awake, comfortable, no acute distress Examination lower extremity shows 1+ edema - Labs CBC & Chem 7: 06/02/25 10:40 06/05/25 05:35 Labs: Abnormal Lab Results - Last 24 Hours (Table) 06/04/25 06/04/25 06/04/25 Range/Units 11:31 16:22 19:58 Sodium (137-145) mmol/L Potassium (3.5-5.1) mmol/L Chloride (98-107) mmol/L Carbon Dioxide (22-30) mmol/L BUN (7-17) mg/dL Creatinine (0.52-1.04) mg/dL Glucose (74-99) mg/dL POC Glucose (mg/dL) 148 H 307 H 266 H (70-110) mg/dL 06/05/25 06/05/25 06/05/25 Range/Units 01:59 05:35 06:04 Sodium 131 L (137-145) mmol/L Potassium 6.0 H (3.5-5.1) mmol/L Chloride 96 L (98-107) mmol/L Carbon Dioxide 20 L (22-30) mmol/L BUN 38 H (7-17) mg/dL Creatinine 4.66 H (0.52-1.04) mg/dL Glucose 125 H (74-99) mg/dL POC Glucose (mg/dL) 191 H 153 H (70-110) mg/dL Assessment and Plan Assessment: 1. End-stage renal disease maintained on hemodialysis on Wednesday. 2. DKA status post insulin drip. Patient has brittle diabetes. 3. Hypertension with chronic kidney disease. Stable. 4. History of pericardial effusion. 5. Metabolic acidosis secondary to DKA and lactic acidosis. Improved. 6. Anemia of chronic kidney disease. Iron replete. Plan: Hemodialysis today with goal UF of about 5 L Continue to maintain salt and fluid restriction
[2025-06-05 11:37] LABS: Glucose,Whole Blood 65 mg/dL (70-110)
[2025-06-05 11:57] LABS: Glucose,Whole Blood 60 mg/dL (70-110)
[2025-06-05 12:26] LABS: Glucose,Whole Blood 106 mg/dL (70-110)
--- NOTE | 2025-06-05 16:25 | P.PN ---
Subjective Progress Note Date: 06/05/25 HPI: 35-year-old female known to me from her medical hospitalization came in with nausea vomiting found to be in DKA with mild metabolic acidosis anion gap of 16. Patient was on IV insulin anion gap closed patient is transition to subcutaneous insulin although her blood sugars have bit low. Patient blood pressure was high on admission. Patient is end-stage renal disease hemodialysis dependent patient was also volume overloaded and had an emergent hemodialysis with removal of 3 L of fluid. LFTs are minimally elevated because of hepatic congestion. Patient is complaining of generalized bodyaches. Subjective: 06/02/2025: Patient seen at bedside. No significant overnight events. States the nausea continues to persist, has not vomited but constant nausea. Patient has no other complaints concerns at this time. States she would like to go to the [place] rehab facility. 06/03/2025 Patient is seen in follow-up today currently awaiting to go to ECF possibly [facility] if accepted and insurance authorization is approved. Patient being followed by multiple consultations and orthopedics was consulted for shoulder pain. Patient denies any injuries although is having left shoulder pain. Orthopedics recommending conservative management and outpatient follow-up. No acute fractures are noted. Patient is maintained on hemodialysis and will receive again tomorrow with nephrology following. Continue current regimen and continue monitoring blood sugars closely AC and at bedtime as well as 2 AM as patient is severely uncontrolled with extreme hyper and hypoglycemia. 06/04/2025 Patient is seen in follow-up today currently sleeping undergoing hemodialysis and is lethargic although arousable. Patient's blood sugars continue to be uncontrolled and have been up and down although appear to be improved today. Patient is undergoing hemodialysis with significant removal today. Patient is maintained on 4 days weekly Wednesday, Wednesday, , Wednesday dialysis and case management following working on possible ECF. According to case management, patient does not qualify and multiple other facilities including [facility], and [facility] have denied the patient. Plan will be for patient to return home with home care. Patient is afebrile with no reported chest pain or palpitations. Patient chronically has persistent nausea although no vomiting reported today. Encouraged increase activity as tolerated and will monitor overnight with possible discharge planning in 24 hours 06/05/2025 Patient is seen in follow-up today currently undergoing hemodialysis, slightly more arousable than before. States her nausea has improved after increasing the frequency of her Zofran. Patient undergoing hemodialysis with goal of 5 L fluid removal today. Patient's sugars have been running on the low side today, currently 106. Case management reports patient has been denied from [facility] and all other rehabilitation facilities and will be only be able to do home with home care. Patient is afebrile with no complaints of chest pain or palpi tations. Review of systems: Constitutional: No reports of fatigue, fever, or chills Cardiovascular: No reports of chest pain or palpitations Respiratory: reports of shortness of breath, no cough GI: No reports of nausea, vomiting, or diarrhea, reports not eating much : No reports of dysuria or retention Neurovascular: reports of generalized weakness and left shoulder pain All medications have been reviewed GENERAL: The patient is alert and oriented x3, not in any acute distress. Well developed, well nourished. Chronically ill-appearing HEENT: Pupils are round and equally reacting to light. EOMI. No scleral icterus. No conjunctival pallor. Normocephalic, atraumatic. No pharyngeal erythema. No thyromegaly. CARDIOVASCULAR: S1 and S2 muffled PULMONARY: Diminished breath sounds bilaterally otherwise chest is clear to auscultation, no wheezing or crackles. ABDOMEN: Soft, nontender, nondistended, normoactive bowel sounds. No palpable organomegaly. MUSCULOSKELETAL: No joint swelling or deformity. EXTREMITIES: No cyanosis, clubbing, or pedal edema. NEUROLOGICAL: Gross neurological examination did not reveal any focal deficits. Diffusely weak SKIN: No rashes. Assessment and plan: -Diabetic ketoacidosis: Anion gap closed, continue Lantus insulin 11 units twice daily and NovoLog 6 units twice daily. -Weakness with gait dysfunction, improving -Nausea, chronic -Left shoulder pain, no acute fractures noted, conservative management per orthopedics - Hyponatremia: Secondary to end-stage renal disease mainly there is a component of hyperosmolar hyponatremia from elevated blood sugars - Volume overload, acute pulmonary edema secondary to end-stage renal disease status post hemodialysis patient is presently on 2 L of oxygen - Acute hypoxic respiratory failure secondary to pulmonary edema improving at this time - Type 2 diabetes mellitus, uncontrolled with hyper and hypoglycemia, management as mentioned above - Hyperkalemia patient always has issues with hyperkalemia patient is on regular scheduled Lokelma along with hemodialysis patient did undergo hemodialysis - Anemia of chronic kidney disease - Hypothyroidism - Leukocytosis reactive secondary to DKA: Resolved -Accelerated hypertension, on admission - Diabetic peripheral neuropathy - Seizure disorder for which patient is on Depakote GI prophylaxis DVT prophylaxis Full code Plan: Patient was awaiting acceptance to ECF although all facilities have denied the patient. Multiple other referrals were sent per case management and also refusing to accept the patient. Patient will be arranged to have home care and discharge home possibly in the next 24 hours, plan was to be discharged today (06/05) but nephrology would like the patient to stay for another stint of hemodialysis tomorrow morning. If cleared by nephrology tomorrow the patient can be discharged home with home care. Continue hemodialysis with nephrology following and currently undergoing hemodialysis at this time. Patient is maintained on Wednesday/Wednesday//Wednesday schedule Continue monitoring Accu-Cheks AC and at bedtime and encouraged oral intake. Blood sugars have been on the lower side although patient's blood sugars are severely uncontrolled with hyper and hypoglycemia Continue current medications and supportive care Patient was seen and evaluated by orthopedics for left shoulder pain with no fractures noted recommending conservative management at this time. Patient to follow-up outpatient as needed Patient to receive hemodialysis again tomorrow per nephrology and will plan for possible discharge planning in the next [address] Roro MD I have performed a history and examination and MDM of this patient, discussed the same with the dictator, and agree with the dictator's assessment and plan as written ,documented as a scribe. Based on total visit time, I have performed more than 50% of the visit. Objective - Vital Signs Vital signs: Vital Signs Temp 97.9 F 06/05/25 13:35 Pulse 80 06/05/25 13:35 Resp 16 06/05/25 13:35 BP 144/82 06/05/25 13:35 Pulse Ox 100 06/05/25 13:35 FiO2 Intake & Output 06/04/25 06/05/25 06/05/25 18:59 06:59 18:59 Intake Total 1189 449 3690 Output Total 22692 9500 Balance -8560 570 -8280 Weight 72.5 kg Intake: Oral 1440 570 720 Hemodialysis 400 500 Output: Hemodialysis 5400 5000 Hemodialysis Net Amount 5000 4500 - Labs CBC & Chem 7: 06/02/25 10:40 06/05/25 05:35 Labs: Abnormal Lab Results - Last 24 Hours (Table) 06/04/25 06/04/25 06/05/25 Range/Units 16:22 19:58 01:59 Sodium (137-145) mmol/L Potassium (3.5-5.1) mmol/L Chloride (98-107) mmol/L Carbon Dioxide (22-30) mmol/L BUN (7-17) mg/dL Creatinine (0.52-1.04) mg/dL Glucose (74-99) mg/dL POC Glucose (mg/dL) 307 H 266 H 191 H (70-110) mg/dL 06/05/25 06/05/25 06/05/25 Range/Units 05:35 06:04 11:35 Sodium 131 L (137-145) mmol/L Potassium 6.0 H (3.5-5.1) mmol/L Chloride 96 L (98-107) mmol/L Carbon Dioxide 20 L (22-30) mmol/L BUN 38 H (7-17) mg/dL Creatinine 4.66 H (0.52-1.04) mg/dL Glucose 125 H (74-99) mg/dL POC Glucose (mg/dL) 153 H 65 L (70-110) mg/dL 06/05/25 Range/Units 11:55 Sodium (137-145) mmol/L Potassium (3.5-5.1) mmol/L Chloride (98-107) mmol/L Carbon Dioxide (22-30) mmol/L BUN (7-17) mg/dL Creatinine (0.52-1.04) mg/dL Glucose (74-99) mg/dL POC Glucose (mg/dL) 60 L (70-110) mg/dL
[2025-06-05 16:34] LABS: Glucose,Whole Blood 332 mg/dL (70-110)
[2025-06-05 19:47] LABS: Glucose,Whole Blood 338 mg/dL (70-110)
[2025-06-06 01:39] LABS: Glucose,Whole Blood 247 mg/dL (70-110)
[2025-06-06 05:57] LABS: Glucose,Whole Blood 234 mg/dL (70-110)
[2025-06-06 08:12] LABS: Basophils # (A) 0.07 10*3/uL (0.00-0.10); Basophils % (A) 1.0 %; Eosinophils # (A) 0.94 10*3/uL (0.04-0.35); Eosinophils % (A) 13.7 %; HCT 26.9 % (37.2-46.3); HGB 8.7 g/dL (12.0-15.0); Lymphocytes # (A) 0.85 10*3/uL (0.90-5.00); Lymphocytes % (A) 12.4 %; MCH 33.1 pg (27.0-32.0); MCHC 32.3 g/dL (32.0-37.0); MCV 102.3 fL (80.0-97.0); Monocytes # (A) 0.49 10*3/uL (0.20-1.00); Monocytes % (A) 7.2 %; Neutrophils # (A) 4.48 10*3/uL (1.80-7.70); Neutrophils % (A) 65.4 %; Platelet Count 197 10*3/uL (140-440); RBC 2.63 10*6/uL (4.10-5.20); RDW 17.4 % (11.5-14.5); WBC 6.85 10*3/uL (4.50-10.00)
[2025-06-06 08:33] LABS: ALT 20 U/L (4-34); AST 23 U/L (14-36); African American GFR (CKD) 17 (>60 ml/min/1.73 sqM); Albumin 4.1 g/dL (3.5-5.0); Alkaline Phosphatase 147 U/L (38-126); Anion Gap 13 mmol/L; Blood Urea Nitrogen 37 mg/dL (7-17); Calcium 9.7 mg/dL (8.4-10.2); Carbon Dioxide 24 mmol/L (22-30); Chloride 97 mmol/L (98-107); Glucose 200 mg/dL (74-99); Non-African American GFR(CKD) 14 (>60 ml/min/1.73 sqM); Potassium 5.0 mmol/L (3.5-5.1); Sodium 134 mmol/L (137-145); Total Protein 6.5 g/dL (6.3-8.2)
--- NOTE | 2025-06-06 09:35 | XR ---
EXAMINATION TYPE: XR chest 2V DATE OF EXAM: 06/06/2025 9:11 AM COMPARISON: 05/27/2025 CLINICAL INDICATION: Female, 35 years old with history of new onset cough and hemoptysis, TECHNIQUE: XR chest 2V view(s) obtained. FINDINGS: The heart size is enlarged. The pulmonary vasculature is upper limits of normal. Minimal diffuse increased lung markings may be present. Correlate for mild volume overload IMPRESSION: 1. There may be some mild volume overload with cardiomegaly. [facility], Workstation: [facility], 06/06/2025 9:33 AM
--- NOTE | 2025-06-06 11:19 | P.PN ---
Subjective Patient is seen for follow-up for end-stage renal disease. Status post hemodialysis yesterday with UF of 4.5 L. Patient is requesting another treatment today. No complaints of shortness of breath however legs remain edematous. Blood pressure is not extremely uncontrolled. Objective - Vital Signs Vital signs: Vital Signs Temp 97.5 F L 06/06/25 09:11 Pulse 88 06/06/25 09:11 Resp 14 06/06/25 09:11 BP 160/98 06/06/25 09:11 Pulse Ox 100 06/06/25 09:11 FiO2 Intake & Output 06/05/25 06/06/25 06/06/25 18:59 06:59 18:59 Intake Total 1220 780 Output Total 9500 Balance -8280 780 Weight 82.6 kg Intake: Oral 720 780 Hemodialysis 500 Output: Hemodialysis 5000 Hemodialysis Net Amount 4500 Other: # Voids 2 # Bowel Movements 0 - Exam Patient is awake, comfortable, no acute distress Abdomen is soft nontender Examination lower extremity shows 2+ edema - Labs CBC & Chem 7: 06/06/25 07:42 06/06/25 07:42 Labs: Abnormal Lab Results - Last 24 Hours (Table) 06/05/25 06/05/25 06/05/25 Range/Units 11:35 11:55 16:32 RBC (4.10-5.20) 10*6/uL Hgb (12.0-15.0) g/dL Hct (37.2-46.3) % MCV (80.0-97.0) fL MCH (27.0-32.0) pg Lymphocytes # (0.90-5.00) 10*3/uL Eosinophils # (0.04-0.35) 10*3/uL Sodium (137-145) mmol/L Chloride (98-107) mmol/L BUN (7-17) mg/dL Creatinine (0.52-1.04) mg/dL Glucose (74-99) mg/dL POC Glucose (mg/dL) 65 L 60 L 332 H (70-110) mg/dL Alkaline Phosphatase (38-126) U/L 06/05/25 06/06/25 06/06/25 Range/Units 19:45 01:34 05:55 RBC (4.10-5.20) 10*6/uL Hgb (12.0-15.0) g/dL Hct (37.2-46.3) % MCV (80.0-97.0) fL MCH (27.0-32.0) pg Lymphocytes # (0.90-5.00) 10*3/uL Eosinophils # (0.04-0.35) 10*3/uL Sodium (137-145) mmol/L Chloride (98-107) mmol/L BUN (7-17) mg/dL Creatinine (0.52-1.04) mg/dL Glucose (74-99) mg/dL POC Glucose (mg/dL) 338 H 247 H 234 H (70-110) mg/dL Alkaline Phosphatase (38-126) U/L 06/06/25 06/06/25 Range/Units 07:42 07:42 RBC 2.63 L (4.10-5.20) 10*6/uL Hgb 8.7 L (12.0-15.0) g/dL Hct 26.9 L (37.2-46.3) % MCV 102.3 H (80.0-97.0) fL MCH 33.1 H (27.0-32.0) pg Lymphocytes # 0.85 L (0.90-5.00) 10*3/uL Eosinophils # 0.94 H (0.04-0.35) 10*3/uL Sodium 134 L (137-145) mmol/L Chloride 97 L (98-107) mmol/L BUN 37 H (7-17) mg/dL Creatinine 3.86 H (0.52-1.04) mg/dL Glucose 200 H (74-99) mg/dL POC Glucose (mg/dL) (70-110) mg/dL Alkaline Phosphatase 147 H (38-126) U/L Assessment and Plan Assessment: 1. End-stage renal disease maintained on hemodialysis on Wednesday. 2. DKA status post insulin drip. Patient has brittle diabetes. 3. Hypertension with chronic kidney disease. Stable. 4. History of pericardial effusion. 5. Metabolic acidosis secondary to DKA and lactic acidosis. Improved. 6. Anemia of chronic kidney disease. Iron replete. Plan: Hemodialysis today with goal UF of about 2 to 3 L. Readdressed salt and fluid restriction with patient
[2025-06-06 11:35] LABS: Glucose,Whole Blood 58 mg/dL (70-110)
[2025-06-06 12:10] LABS: Glucose,Whole Blood 92 mg/dL (70-110)
[2025-06-06 16:38] LABS: Glucose,Whole Blood 213 mg/dL (70-110)
--- NOTE | 2025-06-06 17:20 | P.DS ---
Providers Date of admission: 05/27/25 17:47 Attending physician: Jamal Glasgow MD Consults: 05/27/25 17:48 Consult Physician Stat Consulting Provider: Jorge Thornton Consult Reason/Comments: crit care Do you want consulting provider notified?: Already Contacted Consult Physician Urgent Consulting Provider: Charlene Lim Consult Reason/Comments: dka, crf, pulm edema Do you want consulting provider notified?: Yes 06/03/25 02:37 Consult Physician Routine Consulting Provider: Terence Hagan Consult Reason/Comments: left shoulder pain Do you want consulting provider notified?: Yes, Notify in am Primary care physician: Stated None Hospital Course: Discharge Diagnosis: DKA Hyperkalemia Hospital Course: 35-year-old female known to me from her medical hospitalization came in with nausea vomiting found to be in DKA with mild metabolic acidosis anion gap of 16. Patient was on IV insulin anion gap closed patient is transition to subcutaneous insulin although her blood sugars have bit low. Patient blood pressure was high on admission. Patient is end-stage renal disease hemodialysis dependent patient was also volume overloaded and had an emergent hemodialysis with removal of 3 L of fluid. LFTs are minimally elevated because of hepatic congestion. Patient is complaining of generalized bodyaches. During the course of her hospital stay, was admitted to the ICU and evaluated by critical care for management of diabetic ketoacidosis. Her condition largely improved, and she was subsequently transferred to the medical floors. General hospitalization, patient went multiple hemodialysis sessions and experienced multiple episodes of hyperkalemia, which were appropriately treated, her medication regimen was reviewed and optimized. At present, patient is hemodynamically stable and medically appropriate for discharge home with home care services in place. To follow-up with PCP outpatient. High risk of readmission given significant comorbidities and noncompliance outpatient follow- up. Patient seen and examined at bedside. 06/06/2025 Vital signs reviewed and stable. GENERAL: The patient is alert and oriented x3, not in any acute distress. Well developed, well nourished. Chronically ill-appearing HEENT: Pupils are round and equally reacting to light. EOMI. No scleral icterus. No conjunctival pallor. Normocephalic, atraumatic. No pharyngeal erythema. No thyromegaly. CARDIOVASCULAR: S1 and S2 muffled PULMONARY: Diminished breath sounds bilaterally otherwise chest is clear to auscultation, no wheezing or crackles. ABDOMEN: Soft, nontender, nondistended, normoactive bowel sounds. No palpable organomegaly. MUSCULOSKELETAL: No joint swelling or deformity. EXTREMITIES: No cyanosis, clubbing, or pedal edema. NEUROLOGICAL: Gross neurological examination did not reveal any focal deficits. Diffusely weak SKIN: No rashes. A total of greater than 30 minutes of time were spent preparing this complex discharge summary. Patient was discharged on 06/06/2025. Patient Condition at Discharge: Critical Plan - Discharge Summary Discharge Rx Participant: Yes New Discharge Prescriptions: Continue Lidocaine 4% Patch 1 patch TOPICAL DAILY@0800 Ipratropium-Albuterol Nebulize [Duoneb 0.5 mg-3 mg/3 ml Soln] 3 ml INHALATION RT-TID PRN each PRN Reason: Shortness Of Breath Or Wheezing Biotene Dry Mouth/Throat 10 ml PO BID PRN PRN Reason: DRY MOUTH/THROAT Acetaminophen [Tylenol] 650 mg PO Q4H PRN PRN Reason: Pain Or Fever > 100.5 Loratadine [Claritin] 5 mg PO DAILY tab Sertraline [Zoloft] 200 mg PO DAILY@0800 Folic Acid/Vit B Complex and C [Davina-Mayte Tablet] 0.8 mg PO DAILY Isosorbide Mononitrate ER [Imdur] 120 mg PO DAILY #60 tab Gabapentin [Neurontin] 100 mg PO BID 30 Days #60 cap Linagliptin [Tradjenta] 5 mg PO DAILY #30 tab cloNIDine HCL [Catapres] 0.3 mg PO TID Insulin Lispro [humaLOG Kwikpen] See Protocol SQ AC-TID carvediloL [Coreg] 50 mg PO BID #120 tablet Lidocaine 5% Cream 1 applic TOPICAL MOTUWETHSA ALPRAZolam [Xanax] 0.25 mg PO BID PRN PRN Reason: Anxiety NIFEdipine XL [Procardia XL] 90 mg PO Q12HR #60 tab Ondansetron Odt [Zofran ODT] 4 mg PO Q8HR PRN #10 tab PRN Reason: Nausea INSULIN LISPRO (HumaLOG) [HumaLOG] 8 unit SQ AC-TID #0 each Docusate [Colace] 100 mg PO DAILY@0800 polyethylene glycoL 3350 [Miralax] 17 gm PO AC-LUNCH #527 gm Melatonin 1 mg PO HS tab Aspirin 81 mg PO DAILY@0800 #30 tab Famotidine [Pepcid] 20 mg PO BID #60 tab Levothyroxine Sodium [Synthroid] 175 mcg PO DAILY@0600 traZODone HCL [Desyrel] 50 mg PO HS #20 tab Ipratropium-Albuterol Nebulize [Duoneb 0.5 mg-3 mg/3 ml Soln] 3 ml INHALATION RT-TID #100 each Calcium Acetate [PhosLo] 1,334 mg PO TID-W/MEALS 30 Days #360 tab Divalproex Sodium [Depakote] 500 mg PO BID@0800,1700 Methoxy Peg-Epoetin Beta [Mircera] 100 mcg SQ Q14D Insulin Glargine (Lantus) [Lantus Vial] 11 unit SQ BID #0 oxyCODONE HCL/ACETAMINOPHEN [Percocet 10-325 mg] 1 tab PO DAILY PRN PRN Reason: Pain hydrOXYzine HCL [Atarax] 25 mg PO TID PRN #10 tab PRN Reason: Itching Sodium Zirconium Cyclosilicate [Lokelma] 10 gm PO DAILY #30 Pantoprazole [Protonix] 40 mg PO AC-BRKFST #30 tab Mirtazapine 30 mg PO HS Discharge Medication List Docusate [Colace] 100 mg PO DAILY@0800 02/05/24 [History] Lidocaine 4% Patch 1 patch TOPICAL DAILY@0800 02/05/24 [History] Ipratropium-Albuterol Nebulize [Duoneb 0.5 mg-3 mg/3 ml Soln] 3 ml INHALATION RT-TID PRN each 02/14/24 [Rx] polyethylene glycoL 3350 [Miralax] 17 gm PO AC-LUNCH #527 gm 02/14/24 [Rx] Acetaminophen [Tylenol] 650 mg PO Q4H PRN 02/18/24 [History] Biotene Dry Mouth/Throat 10 ml PO BID PRN 02/18/24 [History] Melatonin 1 mg PO HS tab 02/25/24 [Rx] Loratadine [Claritin] 5 mg PO DAILY tab 03/30/24 [Rx] Aspirin 81 mg PO DAILY@0800 #30 tab 05/18/24 [Rx] Famotidine [Pepcid] 20 mg PO BID #60 tab 07/11/24 [Rx] Levothyroxine Sodium [Synthroid] 175 mcg PO DAILY@0600 08/14/24 [History] Sertraline [Zoloft] 200 mg PO DAILY@0800 08/14/24 [History] Folic Acid/Vit B Complex and C [Davina-Mayte Tablet] 0.8 mg PO DAILY 12/20/24 [History] traZODone HCL [Desyrel] 50 mg PO HS #20 tab 01/01/25 [Rx] Isosorbide Mononitrate ER [Imdur] 120 mg PO DAILY #60 tab 01/02/25 [Rx] Gabapentin [Neurontin] 100 mg PO BID 30 Days #60 cap 01/03/25 [Rx] Linagliptin [Tradjenta] 5 mg PO DAILY #30 tab 01/03/25 [Rx] Insulin Lispro [humaLOG Kwikpen] See Protocol SQ AC-TID 01/22/25 [History] cloNIDine HCL [Catapres] 0.3 mg PO TID 01/22/25 [History] carvediloL [Coreg] 50 mg PO BID #120 tablet 02/15/25 [Rx] Calcium Acetate [PhosLo] 1,334 mg PO TID-W/MEALS 30 Days #360 tab 02/19/25 [Rx] Ipratropium-Albuterol Nebulize [Duoneb 0.5 mg-3 mg/3 ml Soln] 3 ml INHALATION RT-TID #100 each 02/19/25 [Rx] ALPRAZolam [Xanax] 0.25 mg PO BID PRN 02/26/25 [History] Divalproex Sodium [Depakote] 500 mg PO BID@0800,1700 02/26/25 [History] Lidocaine 5% Cream 1 applic TOPICAL MOTUWETHSA 02/26/25 [History] Methoxy Peg-Epoetin Beta [Mircera] 100 mcg SQ Q14D 02/26/25 [History] Insulin Glargine (Lantus) [Lantus Vial] 11 unit SQ BID #0 03/18/25 [Rx] oxyCODONE HCL/ACETAMINOPHEN [Percocet 10-325 mg] 1 tab PO DAILY PRN 04/16/25 [History] hydrOXYzine HCL [Atarax] 25 mg PO TID PRN #10 tab 04/24/25 [Rx] Sodium Zirconium Cyclosilicate [Lokelma] 10 gm PO DAILY #30 04/27/25 [Rx] NIFEdipine XL [Procardia XL] 90 mg PO Q12HR #60 tab 05/07/25 [Rx] Ondansetron Odt [Zofran ODT] 4 mg PO Q8HR PRN #10 tab 05/07/25 [Rx] Pantoprazole [Protonix] 40 mg PO AC-BRKFST #30 tab 05/07/25 [Rx] INSULIN LISPRO (HumaLOG) [HumaLOG] 8 unit SQ AC-TID #0 each 05/17/25 [Rx] Mirtazapine 30 mg PO HS 05/19/25 [History] Follow up Appointment(s)/Referral(s): Karthikeyan Ely MD [STAFF PHYSICIAN] - As Needed Clarisa Dominguez III, MD [STAFF PHYSICIAN] - 1 Week None,Stated [Primary Care Provider] - 1-2 days [facility] [NON-STAFF] - 1 Week Patient Instructions/Handouts: Diabetic Ketoacidosis (DC) Activity/Diet/Wound Care/Special Instructions: nurse - please fax a d/c bianca to [facility] office when pt d/c. fax number: Discharge Disposition: HOME WITH HOME HEALTH SERVICES
[2025-06-06 19:50] LABS: Glucose,Whole Blood 94 mg/dL (70-110)
[2025-06-06 21:34] LABS: Glucose,Whole Blood 51 mg/dL (70-110)
[2025-06-06 22:00] VITALS: TEMP 98.2
[2025-06-06 22:03] LABS: Glucose,Whole Blood 97 mg/dL (70-110)
[2025-06-06 22:59] VITALS: BP 136/71; PULSE 71; RESP 18
== END 2025-06-06 23:04 | disposition home health service (06) | DRG 637 ==
LOC: EC 15:20 → 2SICU 17:47 → 3SCARD 05-30 09:53
PROVIDERS: ADMIT Internal Medicine; ATTEND Internal Medicine
PROC: 5A1D70Z Performance of Urinary Filtration, Intermittent, Less than 6 Hours Per Day (ICD-10-PCS; principal; 2025-05-28)
DX: E10.10 Type 1 diabetes mellitus with ketoacidosis without coma (principal); J81.0 Acute pulmonary edema; J96.01 Acute respiratory failure with hypoxia; N18.6 End stage renal disease; I16.1 Hypertensive emergency; K76.1 Chronic passive congestion of liver; I12.0 Hypertensive chronic kidney disease with stage 5 chronic kidney disease or end stage renal disease; J81.1 Chronic pulmonary edema; Z99.2 Dependence on renal dialysis; E10.22 Type 1 diabetes mellitus with diabetic chronic kidney disease; G40.909 Epilepsy, unspecified, not intractable, without status epilepticus; F32.A Depression, unspecified; E03.9 Hypothyroidism, unspecified; D63.1 Anemia in chronic kidney disease; E87.1 Hypo-osmolality and hyponatremia; E10.319 Type 1 diabetes mellitus with unspecified diabetic retinopathy without macular edema; E10.42 Type 1 diabetes mellitus with diabetic polyneuropathy; E10.43 Type 1 diabetes mellitus with diabetic autonomic (poly)neuropathy; Z79.4 Long term (current) use of insulin; Z79.890 Hormone replacement therapy; E87.5 Hyperkalemia; E87.70 Fluid overload, unspecified; F41.9 Anxiety disorder, unspecified; Z86.73 Personal history of transient ischemic attack (TIA), and cerebral infarction without residual deficits; D72.829 Elevated white blood cell count, unspecified; F17.210 Nicotine dependence, cigarettes, uncomplicated; G47.00 Insomnia, unspecified; H54.7 Unspecified visual loss; K31.84 Gastroparesis; Z79.82 Long term (current) use of aspirin; Z79.84 Long term (current) use of oral hypoglycemic drugs; Z79.899 Other long term (current) drug therapy; Z82.49 Family history of ischemic heart disease and other diseases of the circulatory system; Z88.5 Allergy status to narcotic agent; Z88.6 Allergy status to analgesic agent
CPT/HCPCS: 36415; 71046; 80048; 80051; 80053; 80164; 82009; 82565; 82728; 82947; 83540; 83550; 83605; 83735; 83930; 84100; 84484; 84520; 85025; 85610; 85730; 90935; 93005; 96365; 96375; 99291

== ENCOUNTER 2025-06-09 06:32 | Inpatient (IN) | payer MEDICARE ==
[2025-06-09 06:53] LABS: Glucose,Whole Blood 569 mg/dL (70-110)
--- NOTE | 2025-06-09 06:55 | ED ---
Recheck HPI - General Chief Complaint: Recheck/Abnormal Lab/Rx Stated Complaint: hypoglycemia Time Seen by Provider: 06/09/25 06:39 Source: patient, EMS, RN notes reviewed Mode of arrival: EMS Limitations: no limitations - History of Present Illness Initial Comments: This is a 35-year-old female history of ESRD on hemodialysis (Wednesday, Wednesday, , and Wednesday), type 1 diabetes mellitus(not on insulin pump, and seizures presenting to the ER via EMS from dialysis for concerns of generalized weakness. Patient is well known to the emergency department with frequent visits with complaints of hyperglycemia and fluid overload. Patient states that she has not been feeling well over the past few days and when she went to dialysis this morning they recommended that she report to the emergency department for further evaluation as she "puffy ". Patient had received an additional session of dialysis yesterday as recommended by her infusion therapy nurse, Dr. Lim. she endorses nausea and chills with no reported emesis or fevers. Denies abdominal pain, chest pain or difficulty breathing. this morning she administered 8 units of subQ Humalog this morning however did not check her glucose. Patient states that she will occasionally still produce urine. - Related Data Home Medications Medication Instructions Recorded Confirmed Docusate [Colace] 100 mg PO DAILY@79902/05/24 05/27/25 Lidocaine 4% Patch 1 patch TOPICAL DAILY@79902/05/24 05/27/25 Acetaminophen [Tylenol] 650 mg PO Q4H PRN 02/18/24 05/27/25 Biotene Dry Mouth/Throat 10 ml PO BID PRN 02/18/24 05/27/25 Levothyroxine Sodium [Synthroid] 175 mcg PO DAILY@59908/14/24 05/27/25 Sertraline [Zoloft] 200 mg PO DAILY@79908/14/24 05/27/25 Folic Acid/Vit B Complex and C 0.8 mg PO DAILY 12/20/24 05/27/25 [Davina-Mayte Tablet] Insulin Lispro [humaLOG Kwikpen] See Protocol SQ AC-TID 01/22/25 05/27/25 cloNIDine HCL [Catapres] 0.3 mg PO TID 01/22/25 05/27/25 ALPRAZolam [Xanax] 0.25 mg PO BID PRN 02/26/25 05/27/25 Divalproex Sodium [Depakote] 500 mg PO BID@0800,1700 02/26/25 05/27/25 Lidocaine 5% Cream 1 applic TOPICAL MOTUWETHSA 02/26/25 05/27/25 Methoxy Peg-Epoetin Beta [Mircera] 100 mcg SQ Q14D 02/26/25 05/27/25 oxyCODONE HCL/ACETAMINOPHEN 1 tab PO DAILY PRN 04/16/25 05/27/25 [Percocet 10-325 mg] Mirtazapine 30 mg PO HS 05/19/25 05/27/25 Previous Rx's Medication Instructions Recorded Ipratropium-Albuterol Nebulize 3 ml INHALATION RT-TID PRN each 02/14/24 [Duoneb 0.5 mg-3 mg/3 ml Soln] polyethylene glycoL 3350 [Miralax] 17 gm PO AC-LUNCH #527 gm 02/14/24 Melatonin 1 mg PO HS tab 02/25/24 Loratadine [Claritin] 5 mg PO DAILY tab 03/30/24 Aspirin 81 mg PO DAILY@0800 #30 tab 05/18/24 Famotidine [Pepcid] 20 mg PO BID #60 tab 07/11/24 traZODone HCL [Desyrel] 50 mg PO HS #20 tab 01/01/25 Isosorbide Mononitrate ER [Imdur] 120 mg PO DAILY #60 tab 01/02/25 Gabapentin [Neurontin] 100 mg PO BID 30 Days #60 cap 01/03/25 Linagliptin [Tradjenta] 5 mg PO DAILY #30 tab 01/03/25 carvediloL [Coreg] 50 mg PO BID #120 tablet 02/15/25 Calcium Acetate [PhosLo] 1,334 mg PO TID-W/MEALS 30 Days 02/19/25 #360 tab Ipratropium-Albuterol Nebulize 3 ml INHALATION RT-TID #100 each 02/19/25 [Duoneb 0.5 mg-3 mg/3 ml Soln] Insulin Glargine (Lantus) [Lantus 11 unit SQ BID #0 03/18/25 Vial] hydrOXYzine HCL [Atarax] 25 mg PO TID PRN #10 tab 04/24/25 Sodium Zirconium Cyclosilicate 10 gm PO DAILY #30 04/27/25 [Lokelma] NIFEdipine XL [Procardia XL] 90 mg PO Q12HR #60 tab 05/07/25 Ondansetron Odt [Zofran ODT] 4 mg PO Q8HR PRN #10 tab 05/07/25 Pantoprazole [Protonix] 40 mg PO AC-BRKFST #30 tab 05/07/25 INSULIN LISPRO (HumaLOG) [HumaLOG] 8 unit SQ AC-TID #0 each 05/17/25 Allergies Allergy/AdvReac Type Severity Reaction Status Date / Time propoxyphene Allergy Rash/Hives Verified 05/27/25 15:36 [From Darvocet-N] tramadol Allergy Anaphylaxis Verified 05/27/25 15:36 ampicillin [From Unasyn] AdvReac Itching Verified 05/27/25 15:36 ibuprofen [From Motrin] AdvReac unable to Verified 05/27/25 15:36 take due to kidney disease sulbactam [From Unasyn] AdvReac Itching Verified 05/27/25 15:36 venom-honey bee AdvReac passes out Verified 05/27/25 15:36 [bee venom (honey bee)] Review of Systems ROS Statement: Those systems with pertinent positive or pertinent negative responses have been documented in the HPI. ROS Other: All systems not noted in ROS Statement are negative. 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 Past Anesthesia/Blood Transfusion Reactions: Previous Problems w/ Anesthesia Additional Past Anesthesia/Blood Transfusion Reaction / Comment(s): confusion Past Psychological History: Anxiety, Depression Smoking Status: Current some day smoker Past Alcohol Use History: None Reported Past Drug Use History: Marijuana - Past Family History Father History Unknown: Yes Family Medical History: Unable to Obtain Mother History Unknown: Yes Family Medical History: No Reported History Grandfather History Unknown: Yes Family Medical History: Coronary Artery Disease (CAD) Additional Family Medical History / Comment(s): Diabetes mellitus type 2 General Exam Limitations: no limitations Neck exam: Present: normal inspection. Absent: tenderness, meningismus, lymphadenopathy Respiratory exam: Present: normal lung sounds bilaterally. Absent: respiratory distress, wheezes, rales, rhonchi, stridor Cardiovascular Exam: Present: regular rate, normal rhythm, normal heart sounds. Absent: systolic murmur, diastolic murmur, rubs, gallop, clicks GI/Abdominal exam: Present: soft, normal bowel sounds. Absent: distended, tenderness, guarding, rebound, rigid Extremities exam: Present: normal inspection, full ROM, normal capillary refill, other (bilateral LE edema). Absent: tenderness, pedal edema, joint swelling, calf tenderness Back exam: Present: normal inspection Skin exam: Present: warm, dry, pallor. Absent: normal color Course Vital Signs 06/09/25 06:48 Pulse Rate 81 Respiratory 18 Rate Blood Pressure 186/99 O2 Sat by Pulse 96 Oximetry Medical Decision Making - Medical Decision Making Was pt. sent in by a medical professional or institution (, PA, [employer], urgent care, hospital, or group home...) When possible be specific @ -No Did you speak to anyone other than the patient for history (EMS, parent, family, police, friend...)? What history was obtained from this source @ -No Did you review nursing and triage notes (agree or disagree)? Why? @ -I reviewed and agree with nursing and triage notes Were old charts reviewed (outside hosp., previous admission, EMS record, old EKG, old radiological studies, urgent care reports/EKG's, group home records)? Report findings @ -No old charts were reviewed Differential Diagnosis (chest pain, altered mental status, abdominal pain women, abdominal pain men, vaginal bleeding, weakness, fever, dyspnea, syncope, headache, dizziness, GI bleed, back pain, seizure, CVA, palpatations, mental health, musculoskeletal)? @ -Differential Weakness: Hypoglycemia, shock, sepsis, hyponatremia, anemia, infection, [place], ETOH, adverse medicine reaction, overdose, stroke, this is not meant to be an all-inclusive list. EKG interpreted by me (3pts min.). @ -Completed at 656 sinus rhythm with a ventricular to 78, TX interval 150, QRS 95, QT 411, QTc 444 X-rays interpreted by me (1pt min.). @ -Chest x-ray no acute cardiopulmonary process CT interpreted by me (1pt min.). @ -None done U/S interpreted by me (1pt. min.). @ -None done What testing was considered but not performed or refused? (CT, X-rays, U/S, labs)? Why? @ -None What meds were considered but not given or refused? Why? @ -None Did you discuss the management of the patient with other professionals (professionals i.e. , PA, [employer], lab, RT, psych nurse, social science manager, box office clerk, teacher, vice squad police officer, case mgr)? Give summary @ -spoke with [facility], Margie Urbina, for admission. Was smoking cessation discussed for >3mins.? @ -No Was critical care preformed (if so, how long)? @ -Yes, critical care time was performed for longer than 35 minutes this patient was started on an insulin drip. Were there social determinants of health that impacted care today? How? (Homelessness, low income, unemployed, alcoholism, drug addiction, transp ortation, low edu. Level, literacy, decrease access to med. care, care home, rehab)? @ -No Was there de-escalation of care discussed even if they declined (Discuss DNR or withdrawal of care, Hospice)? DNR status @ -No What co-morbidities impacted this encounter? (DM, HTN, Smoking, COPD, CAD, Cancer, CVA, ARF, Chemo, Hep., AIDS, mental health diagnosis, sleep apnea, morbid obesity)? @ -None Was patient admitted / discharged? Hospital course, mention meds given and route, prescriptions, significant lab abnormalities, going to OR and other pertinent info. @ -Admitted. 35-year-old female presenting to EMS for complaints of generalized weakness. Patient is hyperglycemic and hypertensive on arrival with a glucose of 569 and a blood pressure of 186/99. Patient appears quite pale on exam today is mildly diaphoretic nauseated. She is provided with Zofran and pain medication. EKG is in sinus rhythm. Patient is noted to be hyperglycemic with a blood glucose of 548 acidotic with a CO2 of 10 with an anion gap of 31. Elevated BNP of over 51,000. Patient will be started on insulin drip and will be admitted for further evaluation. Case discussed with my attending Dr. Zepeda. Undiagnosed new problem with uncertain prognosis? @ -No Drug Therapy requiring intensive monitoring for toxicity (Heparin, Nitro, Insulin, Cardizem)? @ -No Were any procedures done? @ -No Diagnosis/symptom? @ -hyperglycemia, acidosis Acute, or Chronic, or Acute on Chronic? @ -acute Uncomplicated (without systemic symptoms) or Complicated (systemic symptoms)? @ -complicated Side effects of treatment? @ -No Exacerbation, Progression, or Severe Exacerbation? @ -No Poses a threat to life or bodily function? How? (Chest pain, [place], [place], pneumonia, PE, COPD, DKA, ARF, appy, cholecystitis, CVA, Diverticulitis, Homicidal, Suicidal, threat to staff... and all critical care pts) @ -No - Lab Data Result diagrams: 06/09/25 06:46 06/09/25 06:46 Lab Results 06/09/25 06/09/25 06/09/25 Range/Units 06:46 06:46 06:46 WBC 9.10 (4.50-10.00) 10*3/uL RBC 2.56 L (4.10-5.20) 10*6/uL Hgb 8.3 L (12.0-15.0) g/dL Hct 24.9 L (37.2-46.3) % MCV 97.3 H D (80.0-97.0) fL MCH 32.4 H (27.0-32.0) pg MCHC 33.3 (32.0-37.0) g/dL Plt Count 278 (140-440) 10*3/uL MPV 11.4 (9.5-12.2) fL Immature Gran % (Auto) 2.7 % Neutrophils % 82.3 % Lymphocytes % 5.7 % Monocytes % 7.1 % Eosinophils % 0.8 % Basophils % 1.4 % Immature Gran # 0.25 H (0.00-0.04) 10*3/uL Neutrophils # 7.48 (1.80-7.70) 10*3/uL Lymphocytes # 0.52 L (0.90-5.00) 10*3/uL Monocytes # 0.65 (0.20-1.00) 10*3/uL Eosinophils # 0.07 (0.04-0.35) 10*3/uL Basophils # 0.13 H (0.00-0.10) 10*3/uL PT 13.2 H (10.0-12.5) sec INR 1.2 H (<1.2) APTT 26.4 (22.0-30.0) sec Sodium 125 L (137-145) mmol/L Potassium 5.8 H (3.5-5.1) mmol/L Chloride 84 L (98-107) mmol/L Carbon Dioxide 10 L (22-30) mmol/L Anion Gap 31 mmol/L BUN 58 H (7-17) mg/dL Creatinine 5.85 H (0.52-1.04) mg/dL Est GFR (CKD-EPI)AfAm 10 (>60 ml/min/1.73 sqM) Est GFR (CKD-EPI)NonAf 9 (>60 ml/min/1.73 sqM) Glucose 548 H* (74-99) mg/dL POC Glucose (mg/dL) (70-110) mg/dL POC Glu Family And Consumer Education Teacher ID Plasma Lactic Acid Christopher (0.7-2.0) mmol/L Calcium 8.7 (8.4-10.2) mg/dL Phosphorus 8.1 H (2.5-4.5) mg/dL Magnesium 2.1 (1.6-2.3) mg/dL Total Bilirubin 0.8 (0.2-1.3) mg/dL AST 37 H (14-36) U/L ALT 36 H (4-34) U/L Alkaline Phosphatase 202 H (38-126) U/L Troponin I (0.000-0.034) ng/mL NT-Pro-B Natriuret Pep 39322 pg/mL Total Protein 6.4 (6.3-8.2) g/dL Albumin 4.4 (3.5-5.0) g/dL 06/09/25 06/09/25 06/09/25 Range/Units 06:46 06:46 06:52 WBC (4.50-10.00) 10*3/uL RBC (4.10-5.20) 10*6/uL Hgb (12.0-15.0) g/dL Hct (37.2-46.3) % MCV (80.0-97.0) fL MCH (27.0-32.0) pg MCHC (32.0-37.0) g/dL Plt Count (140-440) 10*3/uL MPV (9.5-12.2) fL Immature Gran % (Auto) % Neutrophils % % Lymphocytes % % Monocytes % % Eosinophils % % Basophils % % Immature Gran # (0.00-0.04) 10*3/uL Neutrophils # (1.80-7.70) 10*3/uL Lymphocytes # (0.90-5.00) 10*3/uL Monocytes # (0.20-1.00) 10*3/uL Eosinophils # (0.04-0.35) 10*3/uL Basophils # (0.00-0.10) 10*3/uL PT (10.0-12.5) sec INR (<1.2) APTT (22.0-30.0) sec Sodium (137-145) mmol/L Potassium (3.5-5.1) mmol/L Chloride (98-107) mmol/L Carbon Dioxide (22-30) mmol/L Anion Gap mmol/L BUN (7-17) mg/dL Creatinine (0.52-1.04) mg/dL Est GFR (CKD-EPI)AfAm (>60 ml/min/1.73 sqM) Est GFR (CKD-EPI)NonAf (>60 ml/min/1.73 sqM) Glucose (74-99) mg/dL POC Glucose (mg/dL) 569 H* (70-110) mg/dL POC Glu Family [employer] Consumer Education Teacher ID JILLIAN SCIANDRA Plasma Lactic Acid Christopher 1.9 (0.7-2.0) mmol/L Calcium (8.4-10.2) mg/dL Phosphorus (2.5-4.5) mg/dL Magnesium (1.6-2.3) mg/dL Total Bilirubin (0.2-1.3) mg/dL AST (14-36) U/L ALT (4-34) U/L Alkaline Phosphatase (38-126) U/L Troponin I 0.013 (0.000-0.034) ng/mL NT-Pro-B Natriuret Pep pg/mL Total Protein (6.3-8.2) g/dL Albumin (3.5-5.0) g/dL Disposition Clinical Impression: Hyperglycemia due to type 1 diabetes mellitus, Acidosis Disposition: ADMITTED IP TO THIS [facility] Condition: Serious Decision to Admit Reason: Admit from EC Decision Date: 06/09/25 Decision Time: 08:10
[2025-06-09] MEDS: INSULIN REGULAR 100 UNIT/ML VIAL (IV) IV ONE (07:02)
[2025-06-09 07:09] LABS: Basophils # (A) 0.13 10*3/uL (0.00-0.10); Basophils % (A) 1.4 %; Eosinophils # (A) 0.07 10*3/uL (0.04-0.35); Eosinophils % (A) 0.8 %; HCT 24.9 % (37.2-46.3); HGB 8.3 g/dL (12.0-15.0); Lymphocytes # (A) 0.52 10*3/uL (0.90-5.00); Lymphocytes % (A) 5.7 %; MCH 32.4 pg (27.0-32.0); MCHC 33.3 g/dL (32.0-37.0); Monocytes # (A) 0.65 10*3/uL (0.20-1.00); Monocytes % (A) 7.1 %; Neutrophils # (A) 7.48 10*3/uL (1.80-7.70); Neutrophils % (A) 82.3 %; Platelet Count 278 10*3/uL (140-440); RBC 2.56 10*6/uL (4.10-5.20); RDW 15.9 % (11.5-14.5); WBC 9.10 10*3/uL (4.50-10.00)
[2025-06-09 07:20] LABS: INR 1.2 (<1.2); Partial Thromboplastin Time 26.4 sec (22.0-30.0); Prothrombin Time 13.2 sec (10.0-12.5)
[2025-06-09 07:26] LABS: ALT 36 U/L (4-34); AST 37 U/L (14-36); African American GFR (CKD) 10 (>60 ml/min/1.73 sqM); Albumin 4.4 g/dL (3.5-5.0); Alkaline Phosphatase 202 U/L (38-126); Anion Gap 31 mmol/L; Blood Urea Nitrogen 58 mg/dL (7-17); Calcium 8.7 mg/dL (8.4-10.2); Carbon Dioxide 10 mmol/L (22-30); Chloride 84 mmol/L (98-107); Magnesium 2.1 mg/dL (1.6-2.3); Non-African American GFR(CKD) 9 (>60 ml/min/1.73 sqM); Potassium 5.8 mmol/L (3.5-5.1); Sodium 125 mmol/L (137-145); Total Protein 6.4 g/dL (6.3-8.2)
[2025-06-09] MEDS: MORPHINE SULFATE 4 MG/ML SYRINGE IVP STA (07:27)
[2025-06-09 07:28] LABS: MCV 97.3 fL (80.0-97.0)
[2025-06-09] MEDS: ONDANSETRON 4 MG/2 ML VIAL IVP STA (07:28)
--- NOTE | 2025-06-09 07:39 | XR ---
EXAMINATION TYPE: XR chest 2V DATE OF EXAM: 06/09/2025 7:14 AM COMPARISON: 06/06/2025 CLINICAL INDICATION: Female, 35 years old with history of Weakness, Chest pain TECHNIQUE: XR chest 2V views of the chest are obtained. FINDINGS: There is no focal air space opacity. No evidence for pneumothorax. No pleural effusion. The cardiac silhouette size is within normal limits. The osseous structures are grossly intact. IMPRESSION: 1. No acute cardiopulmonary process. [facility], , 06/09/2025 7:37 AM
[2025-06-09 08:07] LABS: Glucose 548 mg/dL (74-99); NT-Pro-B-Type Natriuretic Pept 51200 pg/mL
[2025-06-09 08:25] LABS: Glucose,Whole Blood 529 mg/dL (70-110)
[2025-06-09] MEDS: INSULIN REGULAR 100 UNIT in SODIUM CHLORIDE 0.9% 100 ML IV SCH (09:57)
[2025-06-09 09:58] LABS: Glucose,Whole Blood 475 mg/dL (70-110)
[2025-06-09] MEDS: INSULIN REGULAR BOLUS (FROM DRIP BAG) IV ONE (10:04)
[2025-06-09] MEDS: SODIUM CHLORIDE 0.9% 1,000 ML IV SCH (10:07)
[2025-06-09 11:14] LABS: Glucose,Whole Blood 370 mg/dL (70-110)
[2025-06-09 12:04] LABS: Glucose,Whole Blood 335 mg/dL (70-110)
[2025-06-09 12:37] LABS: African American GFR (CKD) 9 (>60 ml/min/1.73 sqM); Anion Gap 20 mmol/L; Blood Urea Nitrogen 68 mg/dL (7-17); Carbon Dioxide 20 mmol/L (22-30); Chloride 85 mmol/L (98-107); Glucose 310 mg/dL (74-99); Non-African American GFR(CKD) 8 (>60 ml/min/1.73 sqM); Potassium 4.8 mmol/L (3.5-5.1); Sodium 125 mmol/L (137-145)
[2025-06-09 13:10] LABS: Glucose,Whole Blood 287 mg/dL (70-110)
[2025-06-09] MEDS: D5-0.45% NACL WITH KCL 20MEQ/L 1,000 ML IV SCH (13:13)
[2025-06-09] MEDS ORDERED: DRY MOUTH SPRAY 59 SPRAY/59 ML SPRAY MUCOUS MEM PRN ×2 (13:29→13:49)
[2025-06-09] MEDS ORDERED: ONDANSETRON ODT 4 MG TAB PO PRN (13:29)
[2025-06-09] MEDS ORDERED: ACETAMINOPHEN TAB 325 MG TAB PO PRN (13:29)
[2025-06-09] MEDS ORDERED: IPRATROPIUM-ALBUTEROL 3 ML NEB INHALATION PRN (13:29)
[2025-06-09] MEDS ORDERED: hydrOXYzine HCL 25 MG TAB PO PRN (13:29)
[2025-06-09] MEDS ORDERED: [UNRECOGNIZED DRUG - OTHER] SQ SCH (13:30)
[2025-06-09 14:03] LABS: Glucose,Whole Blood 235 mg/dL (70-110)
[2025-06-09 15:07] LABS: Glucose,Whole Blood 198 mg/dL (70-110)
[2025-06-09 16:43] LABS: Glucose,Whole Blood 98 mg/dL (70-110)
[2025-06-09 17:23] LABS: Glucose,Whole Blood 84 mg/dL (70-110)
[2025-06-09 18:12] LABS: Glucose,Whole Blood 89 mg/dL (70-110)
[2025-06-09 18:53] LABS: African American GFR (CKD) 10 (>60 ml/min/1.73 sqM); Anion Gap 15 mmol/L; Blood Urea Nitrogen 68 mg/dL (7-17); Carbon Dioxide 21 mmol/L (22-30); Chloride 90 mmol/L (98-107); Glucose 187 mg/dL (74-99); Non-African American GFR(CKD) 9 (>60 ml/min/1.73 sqM); Sodium 126 mmol/L (137-145)
[2025-06-09] MEDS: CALCIUM ACETATE 667 MG TAB PO SCH (19:02)
[2025-06-09 19:14] LABS: Potassium 6.1 mmol/L (3.5-5.1)
[2025-06-09] MEDS: PANTOPRAZOLE 40 MG/10 ML VIAL IVP SCH (19:35)
[2025-06-09] MEDS: IPRATROPIUM-ALBUTEROL 3 ML NEB INHALATION SCH (19:51)
[2025-06-09 20:05] LABS: Glucose,Whole Blood 138 mg/dL (70-110)
[2025-06-09] MEDS: DIVALPROEX 500 MG TABLET.DR PO SCH (20:07)
[2025-06-09] MEDS: ONDANSETRON 4 MG/2 ML VIAL IVP PRN (20:07)
[2025-06-09] MEDS: NIFEdipine XL 90 MG TAB.ER.24 PO SCH (20:38)
[2025-06-09] MEDS: GABAPENTIN 100 MG CAP PO SCH (20:38)
[2025-06-09] MEDS: MIRTAZAPINE 15 MG TAB PO SCH (20:38)
[2025-06-09 20:41] LABS: Glucose,Whole Blood 169 mg/dL (70-110)
[2025-06-09 22:01] LABS: Glucose,Whole Blood 259 mg/dL (70-110)
[2025-06-09] MEDS: HYDROmorphone 0.5 MG/0.5 ML SYRINGE IVP PRN (22:02)
[2025-06-09 22:36] LABS: Glucose,Whole Blood 262 mg/dL (70-110)
--- NOTE | 2025-06-09 23:44 | HP ---
HISTORY AND PHYSICAL CHIEF COMPLAINT: Weakness, nausea, vomiting, and missed hemodialysis. HISTORY OF PRESENT ILLNESS: This 35-year-old woman with a past medical history of end-stage renal disease, on hemodialysis, was not feeling well today. The patient apparently has nausea, vomiting, and the patient did not have hemodialysis. The patient is feeling puffy. Chest x-ray showed some evidence of early CHF and the white count is 9.1, hemoglobin is 8.3. The patient admitted for further evaluation and treatment. Sodium was found to be 125. The patient is slightly drowsy, unable to provide a complete history at this time. The chest x-ray was personally reviewed by me showed signs of early fluid overload and some CHF. Acetone was found to be positive. PAST MEDICAL HISTORY: Reviewed. Include diabetes, end-stage renal disease. Rest of the chart is also reviewed. HOME MEDICATIONS: Reviewed. Include trazodone. Doses and rest of medications reviewed. ALLERGIES: Darvocet-N 100. FAMILY HISTORY: Could not be taken because of change in mental status. SOCIAL HISTORY: Could not be taken because of change in mental status. REVIEW OF SYSTEMS: Could not be taken because of change in mental status. PHYSICAL EXAMINATION: VITAL SIGNS: Pulse is 81, blood pressure 186/99, respirations 18. HEENT: Conjunctivae normal. NECK: No JVD. CARDIOVASCULAR: S1 and S2. RESPIRATION: Few scattered rhonchi. ABDOMEN: Soft, nontender. No mass palpable. LEGS: No edema. NERVOUS SYSTEM: Diffusely weak. LABORATORY DATA: Reviewed. ASSESSMENT: 1. Change in mental status, acute diabetic ketoacidosis. 2. End-stage renal disease, on hemodialysis, missed hemodialysis. 3. Early fluid overload. 4. Hypertension. 5. Change in mental status, metabolic encephalopathy, history of seizure disorder. 6. Multiple complex medical issues. RECOMMENDATION: This is a 35-year-old woman presented with multiple complex medical issues. We will monitor the patient closely. I would recommend insulin drip and continue with DKA protocol. I would recommend consult with Nephrology. The patient might need hemodialysis. Symptomatic treatment will be offered. Keep n.p.o. except medications. Currently prognosis guarded because of multiple complex medical conditions. Further recommendations to follow. See orders for details. MMODL / IJN: [id number] /
[2025-06-09 23:52] LABS: Glucose,Whole Blood 266 mg/dL (70-110)
[2025-06-10] MEDS: MELATONIN 1 MG TAB PO SCH (00:30)
[2025-06-10] MEDS ORDERED: DEXTROSE 50% SYRINGE 50 ML IVP PRN ×5 (01:26→15:00)
[2025-06-10 02:15] LABS: African American GFR (CKD) 18 (>60 ml/min/1.73 sqM); Anion Gap 18 mmol/L; Blood Urea Nitrogen 45 mg/dL (7-17); Carbon Dioxide 21 mmol/L (22-30); Chloride 90 mmol/L (98-107); Glucose 215 mg/dL (74-99); Non-African American GFR(CKD) 15 (>60 ml/min/1.73 sqM); Potassium 4.5 mmol/L (3.5-5.1); Sodium 129 mmol/L (137-145)
[2025-06-10 02:43] LABS: Glucose,Whole Blood 270 mg/dL (70-110)
[2025-06-10 05:17] LABS: Glucose,Whole Blood 253 mg/dL (70-110)
[2025-06-10 06:40] LABS: Glucose,Whole Blood 211 mg/dL (70-110)
[2025-06-10 06:54] LABS: Glucose,Whole Blood 185 mg/dL (70-110)
--- NOTE | 2025-06-10 07:45 | XR ---
EXAMINATION TYPE: XR chest 1V portable DATE OF EXAM: 06/10/2025 5:51 AM COMPARISON: 06/09/2025 CLINICAL INDICATION: Female, 35 years old with history of chf, Chest pain TECHNIQUE: Single frontal view of the chest is obtained. FINDINGS: There is no focal air space opacity, pleural effusion, or pneumothorax seen. The cardiac silhouette size is within normal limits. The osseous structures are intact. IMPRESSION: 1. No acute process. [facility], , 06/10/2025 7:42 AM
[2025-06-10 08:03] LABS: Glucose,Whole Blood 150 mg/dL (70-110)
[2025-06-10 08:04] LABS: African American GFR (CKD) 14 (>60 ml/min/1.73 sqM); Anion Gap 16 mmol/L; Blood Urea Nitrogen 48 mg/dL (7-17); Carbon Dioxide 23 mmol/L (22-30); Chloride 93 mmol/L (98-107); Glucose 147 mg/dL (74-99); Non-African American GFR(CKD) 12 (>60 ml/min/1.73 sqM); Potassium 4.1 mmol/L (3.5-5.1); Sodium 132 mmol/L (137-145)
[2025-06-10 09:06] LABS: Glucose,Whole Blood 172 mg/dL (70-110)
[2025-06-10] MEDS: ASPIRIN 81 MG PO SCH (09:29)
[2025-06-10] MEDS: oxyCODONE-APAP 10-325MG 1 EACH TAB PO PRN (09:30)
[2025-06-10] MEDS: DOCUSATE 100 MG CAP PO SCH (09:31)
[2025-06-10] MEDS: LORATADINE 10 MG TAB PO SCH (09:31)
[2025-06-10] MEDS: FOLIC ACID-VIT B COMPLEX-VIT C 1 CAP PO SCH (09:32)
[2025-06-10] MEDS: ISOSORBIDE MONONITRATE ER 60 MG TAB.ER.24H PO SCH (09:32)
[2025-06-10] MEDS: SERTRALINE 100 MG TAB PO SCH (09:38)
[2025-06-10] MEDS: LEVOTHYROXINE 88 MCG TAB PO SCH (09:38)
[2025-06-10] MEDS: SODIUM ZIRCONIUM CYCLOSILICATE 10 GM PACKET PO SCH (09:39)
[2025-06-10 10:04] LABS: Glucose,Whole Blood 148 mg/dL (70-110)
[2025-06-10] MEDS: diphenhydrAMINE 25 MG CAP PO PRN (10:58)
[2025-06-10 11:01] LABS: Glucose,Whole Blood 156 mg/dL (70-110)
--- NOTE | 2025-06-10 11:45 | P.CNPUL ---
History of Present Illness Consult date: 06/10/25 Requesting physician: Dahiana Chan Reason for consult: other (Acute diabetic ketoacidosis) Chief complaint: Nausea and vomiting History of present illness: This is a 35-year-old female, quite familiar to our service, patient is known to have history of end-stage renal disease, on hemodialysis, history of diabetes and recurrent episodes of diabetic ketoacidosis almost on every 2 weeks basis, history of congestive heart failure chronic anemia, patient was seen in the ER yesterday with chief complaint of weakness nausea vomiting and missed hemodialysis patient is very well-known for her noncompliance. Patient has type 1 diabetes, she had no abdominal pain, she did have nausea and vomiting, she had no chest pain, no shortness of breath, workup in the ER showed the patient was in diabetic ketoacidosis. Patient was placed on the DKA protocol, she was also noted to have hyperkalemia and she underwent hemodialysis while in the ER, I was notified about this patient and I recommended admission to the ICU for DKA protocol. Patient was seen today, remains on insulin, her insulin now is at 3 units/h still on D5 for 5 at 150 cc/h. Her chest x-ray on admission showed evidence of pulmonary edema and her BNP level was elevated at 51,200. Patient had 2 L of fluid removed during her hemodialysis last night. During my evaluation the patient did not seem to be in any distress. Her anion gap is closing. Her bicarb is correcting nicely. And she still on the DKA protocol. Review of Systems Constitutional: Generalized weakness no fever no chills Eyes: Patient reports no double vision, no visual changes. ENT: Patient reports no ear pain, No rhinorrhea, No post nasal drip, No sore throat. Cardiovascular: Patient reports no chest pain, no edema, no palpitations, no syncope, no orthopnea, no paroxysmal nocturnal dyspnea. Respiratory: Denies any shortness of breath cough or wheezing Gastrointestinal: As noted in the HPI Genitourinary: Patient reports no dysuria, no urinary frequency, no hematuria. Musculoskeletal: Mostly symptoms of weakness Psychiatric: Patient reports no changes in mood, no sleeping problems. Patient reports no changes in memory. Endocrine: Patient is type I diabetic, noncompliant, recurrent episodes of DKA Neurological: Negative Heme/Lymphatic: Negative Skin: Patient reports no rashes or unusual lesions. 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 Past Anesthesia/Blood Transfusion Reactions: Previous Problems w/ Anesthesia Additional Past Anesthesia/Blood Transfusion Reaction / Comment(s): confusion Past Psychological History: Anxiety, Depression Smoking Status: Current some day smoker Past Alcohol Use History: None Reported Additional Past Alcohol Use History / Comment(s): Patient states she smokes a half a pack over 3-4 days but is trying to quit Past Drug Use History: Marijuana Additional Drug Use History / Comment(s): Patient states, "I haven't smoke marijauna in months." - Past Family History Father History Unknown: Yes Family Medical History: Unable to Obtain Mother History Unknown: Yes Family Medical History: No Reported History Grandfather History Unknown: Yes Family Medical History: Coronary Artery Disease (CAD) Additional Family Medical History / Comment(s): Diabetes mellitus type 2 Medications and Allergies Home Medications Medication Instructions Recorded Confirmed Type Docusate [Colace] 100 mg PO DAILY@79902/05/24 06/09/25 History Lidocaine 4% Patch 1 patch TOPICAL DAILY@79902/05/24 06/09/25 History Ipratropium-Albuterol Nebulize 3 ml INHALATION RT-TID PRN each 02/14/24 06/09/25 Rx [Duoneb 0.5 mg-3 mg/3 ml Soln] polyethylene glycoL 3350 [Miralax] 17 gm PO AC-LUNCH #527 gm 02/14/24 06/09/25 Rx Acetaminophen [Tylenol] 650 mg PO Q4H PRN 02/18/24 06/09/25 History Biotene Dry Mouth/Throat 10 ml PO BID PRN 02/18/24 06/09/25 History Melatonin 1 mg PO HS tab 02/25/24 06/09/25 Rx Loratadine [Claritin] 5 mg PO DAILY tab 03/30/24 06/09/25 Rx Aspirin 81 mg PO DAILY@0800 #30 tab 05/18/24 06/09/25 Rx Famotidine [Pepcid] 20 mg PO BID #60 tab 07/11/24 06/09/25 Rx Levothyroxine Sodium [Synthroid] 175 mcg PO DAILY@0600 08/14/24 06/09/25 History Sertraline [Zoloft] 200 mg PO DAILY@0800 08/14/24 06/09/25 History Folic Acid/Vit B Complex and C 0.8 mg PO DAILY 12/20/24 06/09/25 History [Davina-Mayte Tablet] traZODone HCL [Desyrel] 50 mg PO HS #20 tab 01/01/25 06/09/25 Rx Isosorbide Mononitrate ER [Imdur] 120 mg PO DAILY #60 tab 01/02/25 06/09/25 Rx Gabapentin [Neurontin] 100 mg PO BID 30 Days #60 cap 01/03/25 06/09/25 Rx Linagliptin [Tradjenta] 5 mg PO DAILY #30 tab 01/03/25 06/09/25 Rx Insulin Lispro [humaLOG Kwikpen] See Protocol SQ AC-TID 01/22/25 06/09/25 History cloNIDine HCL [Catapres] 0.3 mg PO TID 01/22/25 06/09/25 History carvediloL [Coreg] 50 mg PO BID #120 tablet 02/15/25 06/09/25 Rx Calcium Acetate [PhosLo] 1,334 mg PO TID-W/MEALS 30 Days 02/19/25 06/09/25 Rx #360 tab Ipratropium-Albuterol Nebulize 3 ml INHALATION RT-TID #100 each 02/19/25 06/09/25 Rx [Duoneb 0.5 mg-3 mg/3 ml Soln] ALPRAZolam [Xanax] 0.25 mg PO BID PRN 02/26/25 06/09/25 History Divalproex Sodium [Depakote] 500 mg PO BID@0800,1700 02/26/25 06/09/25 History Lidocaine 5% Cream 1 applic TOPICAL MOTUWETHSA 02/26/25 06/09/25 History Methoxy Peg-Epoetin Beta [Mircera] 100 mcg SQ Q14D 02/26/25 06/09/25 History Insulin Glargine (Lantus) [Lantus 11 unit SQ BID #0 03/18/25 06/09/25 Rx Vial] oxyCODONE HCL/ACETAMINOPHEN 1 tab PO DAILY PRN 04/16/25 06/09/25 History [Percocet 10-325 mg] hydrOXYzine HCL [Atarax] 25 mg PO TID PRN #10 tab 04/24/25 06/09/25 Rx Sodium Zirconium Cyclosilicate 10 gm PO DAILY #30 04/27/25 06/09/25 Rx [Lokelma] NIFEdipine XL [Procardia XL] 90 mg PO Q12HR #60 tab 05/07/25 06/09/25 Rx Ondansetron Odt [Zofran ODT] 4 mg PO Q8HR PRN #10 tab 05/07/25 06/09/25 Rx Pantoprazole [Protonix] 40 mg PO AC-BRKFST #30 tab 05/07/25 06/09/25 Rx INSULIN LISPRO (HumaLOG) [HumaLOG] 8 unit SQ AC-TID #0 each 05/17/25 06/09/25 Rx Mirtazapine 30 mg PO HS 05/19/25 06/09/25 History Allergies Allergy/AdvReac Type Severity Reaction Status Date / Time propoxyphene Allergy Rash/Hives Verified 06/09/25 10:25 [From Darvocet-N] tramadol Allergy Anaphylaxis Verified 06/09/25 10:25 ampicillin [From Unasyn] AdvReac Itching Verified 06/09/25 10:25 ibuprofen [From Motrin] AdvReac unable to Verified 06/09/25 10:25 take due to kidney disease sulbactam [From Unasyn] AdvReac Itching Verified 06/09/25 10:25 venom-honey bee AdvReac passes out Verified 06/09/25 10:25 [bee venom (honey bee)] Physical Exam Vitals: Vital Signs Temp Pulse Pulse Resp BP BP Pulse Ox 06/10/25 10:00 78 12 133/72 99 06/10/25 09:00 84 14 132/69 97 06/10/25 08:52 97 06/10/25 08:00 81 11 L 146/74 99 06/10/25 07:16 90 21 146/74 97 06/10/25 07:00 21 90 L 06/10/25 06:58 98.1 F 85 20 146/74 93 L 06/10/25 03:04 75 16 110/59 99 06/10/25 01:52 98 F 76 18 156/80 06/10/25 01:49 78 16 115/66 06/09/25 21:16 98.0 F 65 15 146/78 97 06/09/25 19:15 95 06/09/25 19:01 06/09/25 18:52 128/75 06/09/25 17:30 73 14 95 06/09/25 17:17 119/72 06/09/25 16:15 72 97 06/09/25 15:39 14 145/88 95 FiO2 06/10/25 10:00 06/10/25 09:00 06/10/25 08:52 06/10/25 08:00 06/10/25 07:16 06/10/25 07:00 06/10/25 06:58 06/10/25 03:04 06/10/25 01:52 06/10/25 01:49 06/09/25 21:16 06/09/25 19:15 06/09/25 19:01 50 06/09/25 18:52 06/09/25 17:30 06/09/25 17:17 06/09/25 16:15 06/09/25 15:39 Intake and Output 06/09/25 06/10/25 06/10/25 22:59 06:59 14:59 Intake Total 29.903 512.995 479.411 Output Total 4500 Balance 29.903 -3987.005 479.411 Intake: Intake, IV Titration 29.903 12.995 479.411 Amount D5-0.45% NaCl with KCl 450 20Meq/l 1,000 ml @ 150 mls/hr IV .Q6H40M VY Rx# :[id number] Insulin Regular 100 unit 29.903 12.995 29.411 In Sodium Chloride 0.9% 100 ml @ 0.1 UNITS/KG/HR 7.626 mls/hr IV .[id number] VY Rx#:[id number] Hemodialysis 500 Output: Hemodialysis 2500 Hemodialysis Net Amount 2000 Other: Weight 75.5 kg Physical exam revealed a 35year-old, in no distress, on 2 L nasal cannula Head: Atraumatic, normocephalic EENT: PERRLA, EOMI, nonicteric, no neck masses, no JVD, no stridor, moist mucous membranes Chest: Symmetrical chest expansion Lungs: Good breath sound bilaterally no crackles rhonchi or wheezes Cardiac: Normal S1-S2, no S3 gallop, no murmur, no bruit Abdomen: Soft nontender no megaly no rebound no guarding good bowel sounds Extremities: No clubbing edema or cyanosis, good pulses bilaterally Musculoskeletal: No deformities and no limitation range of motion Neurologic: Alert oriented x 3 no gross focal neurologic deficit Psychiatric: Normal mood and affect and no mental status examination Skin: No rashes. Results - Laboratory Findings CBC and BMP: 06/09/25 06:46 06/10/25 07:37 PT/INR, D-dimer PT 13.2 sec (10.0-12.5) H 06/09/25 06:46 INR 1.2 (<1.2) H 06/09/25 06:46 Abnormal lab findings: Abnormal Labs 06/09/25 06/09/25 06/09/25 06:46 06:46 06:46 RBC 2.56 L Hgb 8.3 L Hct 24.9 L MCV 97.3 H D MCH 32.4 H Immature Gran # 0.25 H Lymphocytes # 0.52 L Basophils # 0.13 H PT 13.2 H INR 1.2 H Sodium 125 L Potassium 5.8 H Chloride 84 L Carbon Dioxide 10 L BUN 58 H Creatinine 5.85 H Glucose 548 H* POC Glucose (mg/dL) Phosphorus 8.1 H AST 37 H ALT 36 H Alkaline Phosphatase 202 H 06/09/25 06/09/25 06/09/25 06:52 08:23 09:56 RBC Hgb Hct MCV MCH Immature Gran # Lymphocytes # Basophils # PT INR Sodium Potassium Chloride Carbon Dioxide BUN Creatinine Glucose POC Glucose (mg/dL) 569 H* 529 H* 475 H Phosphorus AST ALT Alkaline Phosphatase 06/09/25 06/09/25 06/09/25 11:12 11:57 11:57 RBC Hgb Hct MCV MCH Immature Gran # Lymphocytes # Basophils # PT INR Sodium 125 L Potassium Chloride 85 L Carbon Dioxide 20 L BUN 68 H Creatinine 6.47 H Glucose 310 H POC Glucose (mg/dL) 370 H Phosphorus 7.4 H AST ALT Alkaline Phosphatase 06/09/25 06/09/25 06/09/25 12:03 13:08 14:01 RBC Hgb Hct MCV MCH Immature Gran # Lymphocytes # Basophils # PT INR Sodium Potassium Chloride Carbon Dioxide BUN Creatinine Glucose POC Glucose (mg/dL) 335 H 287 H 235 H Phosphorus AST ALT Alkaline Phosphatase 06/09/25 06/09/25 06/09/25 15:05 18:21 20:04 RBC Hgb Hct MCV MCH Immature Gran # Lymphocytes # Basophils # PT INR Sodium 126 L Potassium 6.1 H* Chloride 90 L Carbon Dioxide 21 L BUN 68 H Creatinine 5.83 H Glucose 187 H POC Glucose (mg/dL) 198 H 138 H Phosphorus 7.2 H AST ALT Alkaline Phosphatase 06/09/25 06/09/25 06/09/25 20:39 22:00 22:33 RBC Hgb Hct MCV MCH Immature Gran # Lymphocytes # Basophils # PT INR Sodium Potassium Chloride Carbon Dioxide BUN Creatinine Glucose POC Glucose (mg/dL) 169 H 259 H 262 H Phosphorus AST ALT Alkaline Phosphatase 06/09/25 06/10/25 06/10/25 23:50 01:36 02:42 RBC Hgb Hct MCV MCH Immature Gran # Lymphocytes # Basophils # PT INR Sodium 129 L Potassium Chloride 90 L Carbon Dioxide 21 L BUN 45 H Creatinine 3.69 H Glucose 215 H POC Glucose (mg/dL) 266 H 270 H Phosphorus AST ALT Alkaline Phosphatase 06/10/25 06/10/25 06/10/25 05:15 06:39 06:53 RBC Hgb Hct MCV MCH Immature Gran # Lymphocytes # Basophils # PT INR Sodium Potassium Chloride Carbon Dioxide BUN Creatinine Glucose POC Glucose (mg/dL) 253 H 211 H 185 H Phosphorus AST ALT Alkaline Phosphatase 06/10/25 06/10/25 06/10/25 07:37 07:37 08:01 RBC Hgb Hct MCV MCH Immature Gran # Lymphocytes # Basophils # PT INR Sodium 132 L Potassium Chloride 93 L Carbon Dioxide BUN 48 H Creatinine 4.54 H Glucose 147 H POC Glucose (mg/dL) 150 H Phosphorus 5.1 H AST ALT Alkaline Phosphatase 06/10/25 06/10/25 06/10/25 09:05 10:02 10:59 RBC Hgb Hct MCV MCH Immature Gran # Lymphocytes # Basophils # PT INR Sodium Potassium Chloride Carbon Dioxide BUN Creatinine Glucose POC Glucose (mg/dL) 172 H 148 H 156 H Phosphorus AST ALT Alkaline Phosphatase - Diagnostic Findings Chest x-ray: image reviewed (Chest x-ray this morning showed no evidence of pulmonary edema, no infiltrate.) Assessment and Plan Assessment: Impression: Acute diabetic ketoacidosis Acute anion gap metabolic acidosis secondary to above End-stage renal disease, on hemodialysis History of noncompliance with treatment including insulin and hemodialysis Fluid overload requiring urgent hemodialysis and removal of 2 L of fluids on her initial presentation Benign essential hypertension Acute metabolic encephalopathy and mental status changes on her initial presentation History of seizure disorder Anemia of chronic disease History of CVA/TIA History of optic neuritis History of hypothyroidism Recurrent episodes of hyperkalemia secondary to renal failure Recommendation: Continue present treatment plan/DKA protocol Resume home meds for blood pressure Nephrology is following for her renal issues and hemodialysis when necessary. Continue GI prophylaxis Close monitoring of electrolytes and anion gap as per protocol Will likely transfer the patient out of the ICU later today once her anion gap closes and once transition to subcu insulin. Will continue to follow while in the ICU. Time with Patient: Greater than 30
[2025-06-10 12:31] LABS: Glucose,Whole Blood 143 mg/dL (70-110)
[2025-06-10 13:25] LABS: Glucose,Whole Blood 149 mg/dL (70-110)
[2025-06-10 14:08] LABS: Glucose,Whole Blood 163 mg/dL (70-110)
[2025-06-10 14:28] LABS: African American GFR (CKD) 12 (>60 ml/min/1.73 sqM); Anion Gap 10 mmol/L; Blood Urea Nitrogen 52 mg/dL (7-17); Calcium 8.4 mg/dL (8.4-10.2); Carbon Dioxide 26 mmol/L (22-30); Chloride 92 mmol/L (98-107); Glucose 132 mg/dL (74-99); Non-African American GFR(CKD) 11 (>60 ml/min/1.73 sqM); Potassium 4.4 mmol/L (3.5-5.1); Sodium 128 mmol/L (137-145)
[2025-06-10 15:48] LABS: Glucose,Whole Blood 165 mg/dL (70-110)
[2025-06-10] MEDS: INSULIN GLARGINE (LANTUS) 100 UNIT/ML SYR SQ SCH (15:48)
[2025-06-10] MEDS: diphenhydrAMINE 50 MG/ML 1 ML VIAL IVP PRN (16:09)
[2025-06-10 16:47] LABS: RSV Not Detected (Not Detectd)
[2025-06-10 17:15] LABS: Glucose,Whole Blood 175 mg/dL (70-110)
[2025-06-10] MEDS: INSULIN LISPRO (HumaLOG) 100 UNIT/ML 10 mL VL SQ SCH ×2 (17:25)
[2025-06-10] MEDS: HYDROmorphone 0.5 MG/0.5 ML SYRINGE IVP PRN (18:21)
--- NOTE | 2025-06-10 18:45 | P.NPCON ---
History of Present Illness - Reason for Consult Consult date: 06/10/25 end stage renal disease - History of Present Illness 35-year-old female with PMHx of end-stage renal disease, on hemodialysis, Type 1 diabetes and recurrent episodes of diabetic ketoacidosis, congestive heart failure chronic anemia,she presented to ED yesterday c/o weakness nausea vomiting and missed hemodialysis, she was admitted for further management of diabetic ketoacidosis. she was in acute respiratory distress requiring BIPAP, potassium level was 6.1. she had emergent hemodialysis. Patient is seen today, she is still feeling tired, O2 requirements improved post 2 L of fluid removed during her hemodialysis last night. 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 Past Anesthesia/Blood Transfusion Reactions: Previous Problems w/ Anesthesia Additional Past Anesthesia/Blood Transfusion Reaction / Comment(s): confusion Past Psychological History: Anxiety, Depression Smoking Status: Current some day smoker Past Alcohol Use History: None Reported Additional Past Alcohol Use History / Comment(s): Patient states she smokes a half a pack over 3-4 days but is trying to quit Past Drug Use History: Marijuana Additional Drug Use History / Comment(s): Patient states, "I haven't smoke marijauna in months." - Past Family History Father History Unknown: Yes Family Medical History: Unable to Obtain Mother History Unknown: Yes Family Medical History: No Reported History Grandfather History Unknown: Yes Family Medical History: Coronary Artery Disease (CAD) Additional Family Medical History / Comment(s): Diabetes mellitus type 2 Medications and Allergies Home Medications Medication Instructions Recorded Confirmed Type Docusate [Colace] 100 mg PO DAILY@0800 02/05/24 06/09/25 History Lidocaine 4% Patch 1 patch TOPICAL DAILY@0800 02/05/24 06/09/25 History Ipratropium-Albuterol Nebulize 3 ml INHALATION RT-TID PRN each 02/14/24 06/09/25 Rx [Duoneb 0.5 mg-3 mg/3 ml Soln] polyethylene glycoL 3350 [Miralax] 17 gm PO AC-LUNCH #527 gm 02/14/24 06/09/25 Rx Acetaminophen [Tylenol] 650 mg PO Q4H PRN 02/18/24 06/09/25 History Biotene Dry Mouth/Throat 10 ml PO BID PRN 02/18/24 06/09/25 History Melatonin 1 mg PO HS tab 02/25/24 06/09/25 Rx Loratadine [Claritin] 5 mg PO DAILY tab 03/30/24 06/09/25 Rx Aspirin 81 mg PO DAILY@0800 #30 tab 05/18/24 06/09/25 Rx Famotidine [Pepcid] 20 mg PO BID #60 tab 07/11/24 06/09/25 Rx Levothyroxine Sodium [Synthroid] 175 mcg PO DAILY@0600 08/14/24 06/09/25 History Sertraline [Zoloft] 200 mg PO DAILY@0800 08/14/24 06/09/25 History Folic Acid/Vit B Complex and C 0.8 mg PO DAILY 12/20/24 06/09/25 History [Davina-Mayte Tablet] traZODone HCL [Desyrel] 50 mg PO HS #20 tab 01/01/25 06/09/25 Rx Isosorbide Mononitrate ER [Imdur] 120 mg PO DAILY #60 tab 01/02/25 06/09/25 Rx Gabapentin [Neurontin] 100 mg PO BID 30 Days #60 cap 01/03/25 06/09/25 Rx Linagliptin [Tradjenta] 5 mg PO DAILY #30 tab 01/03/25 06/09/25 Rx Insulin Lispro [humaLOG Kwikpen] See Protocol SQ AC-TID 01/22/25 06/09/25 History cloNIDine HCL [Catapres] 0.3 mg PO TID 01/22/25 06/09/25 History carvediloL [Coreg] 50 mg PO BID #120 tablet 02/15/25 06/09/25 Rx Calcium Acetate [PhosLo] 1,334 mg PO TID-W/MEALS 30 Days 02/19/25 06/09/25 Rx #360 tab Ipratropium-Albuterol Nebulize 3 ml INHALATION RT-TID #100 each 02/19/25 06/09/25 Rx [Duoneb 0.5 mg-3 mg/3 ml Soln] ALPRAZolam [Xanax] 0.25 mg PO BID PRN 02/26/25 06/09/25 History Divalproex Sodium [Depakote] 500 mg PO BID@0800,1700 02/26/25 06/09/25 History Lidocaine 5% Cream 1 applic TOPICAL MOTUWETHSA 02/26/25 06/09/25 History Methoxy Peg-Epoetin Beta [Mircera] 100 mcg SQ Q14D 02/26/25 06/09/25 History Insulin Glargine (Lantus) [Lantus 11 unit SQ BID #0 03/18/25 06/09/25 Rx Vial] oxyCODONE HCL/ACETAMINOPHEN 1 tab PO DAILY PRN 04/16/25 06/09/25 History [Percocet 10-325 mg] hydrOXYzine HCL [Atarax] 25 mg PO TID PRN #10 tab 04/24/25 06/09/25 Rx Sodium Zirconium Cyclosilicate 10 gm PO DAILY #30 04/27/25 06/09/25 Rx [Lokelma] NIFEdipine XL [Procardia XL] 90 mg PO Q12HR #60 tab 05/07/25 06/09/25 Rx Ondansetron Odt [Zofran ODT] 4 mg PO Q8HR PRN #10 tab 05/07/25 06/09/25 Rx Pantoprazole [Protonix] 40 mg PO AC-BRKFST #30 tab 05/07/25 06/09/25 Rx INSULIN LISPRO (HumaLOG) [HumaLOG] 8 unit SQ AC-TID #0 each 05/17/25 06/09/25 Rx Mirtazapine 30 mg PO HS 05/19/25 06/09/25 History Allergies Allergy/AdvReac Type Severity Reaction Status Date / Time propoxyphene Allergy Rash/Hives Verified 06/09/25 10:25 [From Darvocet-N] tramadol Allergy Anaphylaxis Verified 06/09/25 10:25 ampicillin [From Unasyn] AdvReac Itching Verified 06/09/25 10:25 ibuprofen [From Motrin] AdvReac unable to Verified 06/09/25 10:25 take due to kidney disease sulbactam [From Unasyn] AdvReac Itching Verified 06/09/25 10:25 venom-honey bee AdvReac passes out Verified 06/09/25 10:25 [bee venom (honey bee)] Physical Exam Vitals: Vital Signs Temp Pulse Pulse Resp BP BP Pulse Ox 06/10/25 07:16 90 21 146/74 97 06/10/25 07:00 21 90 L 06/10/25 06:58 98.1 F 85 20 146/74 93 L 06/10/25 03:04 75 16 110/59 99 06/10/25 01:52 98 F 76 18 156/80 06/10/25 01:49 78 16 115/66 06/09/25 21:16 98.0 F 65 15 146/78 97 06/09/25 19:15 95 06/09/25 19:01 06/09/25 18:52 128/75 06/09/25 17:30 73 14 95 06/09/25 17:17 119/72 06/09/25 16:15 72 97 06/09/25 15:39 14 145/88 95 FiO2 06/10/25 07:16 06/10/25 07:00 06/10/25 06:58 06/10/25 03:04 06/10/25 01:52 06/10/25 01:49 06/09/25 21:16 06/09/25 19:15 06/09/25 19:01 50 06/09/25 18:52 06/09/25 17:30 06/09/25 17:17 06/09/25 16:15 06/09/25 15:39 Intake and Output 06/09/25 06/10/25 06/10/25 22:59 06:59 14:59 Intake Total 29.903 512.995 23.984 Output Total 4500 Balance 29.903 -3987.005 23.984 Intake: Intake, IV Titration 29.903 12.995 23.984 Amount Insulin Regular 100 unit 29.903 12.995 23.984 In Sodium Chloride 0.9% 100 ml @ 0.1 UNITS/KG/HR 7.626 mls/hr IV .[id number] [facility] Rx#:[id number] Hemodialysis 500 Output: Hemodialysis 2500 Hemodialysis Net Amount 2000 Other: Weight 75.5 kg General: No acute distress. HEENT: On nasal cannula. LUNGS: No audible rhonchi or wheezes. HEART: Rate and Rhythm are regular. ABDOMEN: Nontender. EXTREMITITES: No edema. Results - Lab Results Most recent lab results Calcium 8.7 mg/dL (8.4-10.2) 06/09/25 06:46 Phosphorus 5.1 mg/dL (2.5-4.5) H 06/10/25 07:37 Magnesium 2.1 mg/dL (1.6-2.3) 06/09/25 06:46 06/09/25 06:46 06/10/25 13:37 Assessment and Plan Assessment: 1. End-stage renal disease maintained on hemodialysis on Wednesday. she was dialyzed urgently yesterday, 2 hours, 2K, 2 L UF. 2. T1DM, admitted with DKA , management per ICU team 3. Hypertension with chronic kidney disease. Stable. 4. History of pericardial effusion. 5. Metabolic acidosis secondary to DKA and lactic acidosis. Improved. 6. Anemia of chronic kidney disease. Iron replete. 7. Hyperkalemia due to missed HD, resolved post hemodialysis Plan: Hemodialysis tomorrow and continue MTTS schedule Readdressed salt and fluid restriction with patient monitor renal panel daily Thank you for consulting Nephrology service, will continue to follow up.
[2025-06-10 20:10] LABS: Glucose,Whole Blood 86 mg/dL (70-110)
[2025-06-10] MEDS: ALPRAZolam 0.25 MG TAB PO PRN (21:31)
[2025-06-11 01:16] LABS: Glucose,Whole Blood 141 mg/dL (70-110)
--- NOTE | 2025-06-11 04:13 | PN ---
PROGRESS NOTE DATE OF SERVICE: 06/10/2025 SUBJECTIVE: This 35-year-old woman was admitted with fluid overload missed hemodialysis and as well as diabetic ketoacidosis, is being closely monitored at this time. The patient is on insulin drip. The gap is closed at this time. is also relieved. The patient is receiving hemodialysis. PAST MEDICAL HISTORY: Reviewed. REVIEW OF SYSTEMS: A 14-point review of systems negative except as mentioned earlier. CURRENT MEDICATIONS: Reviewed. PHYSICAL EXAMINATION: VITAL SIGNS: Pulse is 61, blood pressure 105/69, and respirations 14. HEENT: Conjunctivae normal. NECK: No JVD. CARDIOVASCULAR: S1, S2. RESPIRATIONS: A few scattered rhonchi. ABDOMEN: Soft. NERVOUS SYSTEM: No focal deficits. LABORATORY DATA: Reviewed. ASSESSMENT: 1. Acute diabetic ketoacidosis and uncontrolled blood sugars, present on admission. 2. End-stage renal disease, on hemodialysis. 3. Hemodialysis with fluid overload. 4. Hypertension. 5. Change in mental status, acute metabolic encephalopathy. 6. History of seizure disorder. 7. Multiple complex medical issues. RECOMMENDATIONS: Recommend to continue current management and continue symptomatic treatment. I would recommend repeat labs and I would also recommend stopping insulin drip in 2 hours, initiate Lantus 50 units subcu b.i.d. with short-acting and hold the short- acting insulin with sugars less than 120. Continue rest of medications. Continue the hemodialysis. Repeat labs as mentioned earlier. Prognosis extremely guarded because of multiple complex medical issues and further recommendations to follow. I would also recommend testing also. MMODL / IJN: [id number] / MTDD
[2025-06-11 06:37] LABS: Glucose,Whole Blood 177 mg/dL (70-110)
[2025-06-11 06:38] LABS: Basophils # (A) 0.09 10*3/uL (0.00-0.10); Basophils % (A) 1.7 %; Eosinophils # (A) 0.36 10*3/uL (0.04-0.35); Eosinophils % (A) 7.0 %; HCT 23.6 % (37.2-46.3); HGB 7.7 g/dL (12.0-15.0); Lymphocytes # (A) 1.22 10*3/uL (0.90-5.00); Lymphocytes % (A) 23.6 %; MCH 32.1 pg (27.0-32.0); MCHC 32.6 g/dL (32.0-37.0); MCV 98.3 fL (80.0-97.0); Monocytes # (A) 0.50 10*3/uL (0.20-1.00); Monocytes % (A) 9.7 %; Neutrophils # (A) 2.97 10*3/uL (1.80-7.70); Neutrophils % (A) 57.4 %; Platelet Count 272 10*3/uL (140-440); RBC 2.40 10*6/uL (4.10-5.20); RDW 16.3 % (11.5-14.5); WBC 5.17 10*3/uL (4.50-10.00)
[2025-06-11 06:58] LABS: African American GFR (CKD) 10 (>60 ml/min/1.73 sqM); Anion Gap 13 mmol/L; Blood Urea Nitrogen 55 mg/dL (7-17); Calcium 8.5 mg/dL (8.4-10.2); Carbon Dioxide 22 mmol/L (22-30); Chloride 94 mmol/L (98-107); Glucose 133 mg/dL (74-99); Non-African American GFR(CKD) 9 (>60 ml/min/1.73 sqM); Potassium 4.9 mmol/L (3.5-5.1); Sodium 129 mmol/L (137-145)
[2025-06-11] MEDS: LIDOCAINE 4% CREAM 5 GM TUBE TOPICAL SCH (08:13)
[2025-06-11 11:17] LABS: Glucose,Whole Blood 167 mg/dL (70-110)
--- NOTE | 2025-06-11 11:57 | P.PN ---
Subjective Progress Note Date: 06/11/25 This is a 35-year-old female, quite familiar to our service, patient is known to have history of end-stage renal disease, on hemodialysis, history of diabetes and recurrent episodes of diabetic ketoacidosis almost on every 2 weeks basis, history of congestive heart failure chronic anemia, patient was seen in the ER yesterday with chief complaint of weakness nausea vomiting and missed hemodialysis patient is very well-known for her noncompliance. Patient has type 1 diabetes, she had no abdominal pain, she did have nausea and vomiting, she had no chest pain, no shortness of breath, workup in the ER showed the patient was in diabetic ketoacidosis. Patient was placed on the DKA protocol, she was also noted to have hyperkalemia and she underwent hemodialysis while in the ER, I was notified about this patient and I recommended admission to the ICU for DKA protocol. Patient was seen today, remains on insulin, her insulin now is at 3 units/h still on D5 for 5 at 150 cc/h. Her chest x-ray on admission showed evidence of pulmonary edema and her BNP level was elevated at 51,200. Patient had 2 L of fluid removed during her hemodialysis last night. During my evaluation the patient did not seem to be in any distress. Her anion gap is closing. Her bicarb is correcting nicely. And she still on the DKA protocol. The patient is seen today June 11, 2025 in follow-up in the intensive care unit. She is currently resting in bed. Awake and alert in no acute distress. Maintaining O2 saturations in the 90s on 2 L/min per nasal cannula. No IV fluids. She is receiving hemodialysis today with a goal of 2 L to be removed. White count 5.1. Hemoglobin 7.7. Platelets 272. Sodium 129. Potassium 4.9. Bicarb 22. BUN 55. Creatinine 5.72. Glucose 133. Calcium 8.5. She remains on DuoNeb inhalations. Continued on Lokelma. Currently on Lantus insulin and Humalog sliding scale. Objective - Vital Signs Vital signs: Vital Signs Temp 98 F 06/11/25 08:00 Pulse 73 06/11/25 08:00 Resp 13 06/11/25 08:00 BP 105/75 06/11/25 08:00 Pulse Ox 97 06/11/25 08:00 FiO2 50 06/09/25 19:01 Intake & Output 06/10/25 06/11/25 06/11/25 18:59 06:59 18:59 Intake Total 1534.102 480 Balance 1534.102 480 Weight 81 kg Intake: Intake, IV Titration 1534.102 Amount D5-0.45% NaCl with KCl 1500 20Meq/l 1,000 ml @ 150 mls/hr IV .Q6H40M [facility] Rx# :[id number] Insulin Regular 100 unit 34.102 In Sodium Chloride 0.9% 100 ml @ 0.1 UNITS/KG/HR 7.626 mls/hr IV .[id number] [facility] Rx#:[id number] Oral 480 Other: # Bowel Movements 1 - Exam GENERAL EXAM: Alert, 35-year-old female, on 2 L nasal cannula, resting comfortable in no apparent distress. HEAD: Normocephalic. EYES: Normal reaction of pupils, equal size. NOSE: Clear with pink turbinates. THROAT: No erythema or exudates. NECK: No masses, no JVD. CHEST: No chest wall deformity. LUNGS: Equal air entry with no crackles, wheeze, rhonchi or dullness. CVS: S1 and S2 normal with no audible murmur, regular rhythm. ABDOMEN: No hepatosplenomegaly, normal bowel sounds, no guarding or rigidity. SPINE: No scoliosis or deformity SKIN: No rashes CENTRAL NERVOUS SYSTEM: No focal deficits, tone is normal in all 4 extremities. EXTREMITIES: There is no peripheral edema. No clubbing, no cyanosis. Peripheral pulses are intact. - Labs CBC & Chem 7: 06/11/25 05:18 06/11/25 05:18 Labs: Abnormal Lab Results - Last 24 Hours (Table) 06/10/25 06/10/25 06/10/25 Range/Units 12:29 13:23 13:37 RBC (4.10-5.20) 10*6/uL Hgb (12.0-15.0) g/dL Hct (37.2-46.3) % MCV (80.0-97.0) fL MCH (27.0-32.0) pg Eosinophils # (0.04-0.35) 10*3/uL Sodium 128 L (137-145) mmol/L Chloride 92 L (98-107) mmol/L BUN 52 H (7-17) mg/dL Creatinine 4.98 H (0.52-1.04) mg/dL Glucose 132 H (74-99) mg/dL POC Glucose (mg/dL) 143 H 149 H (70-110) mg/dL 06/10/25 06/10/25 06/10/25 Range/Units 14:06 15:46 17:14 RBC (4.10-5.20) 10*6/uL Hgb (12.0-15.0) g/dL Hct (37.2-46.3) % MCV (80.0-97.0) fL MCH (27.0-32.0) pg Eosinophils # (0.04-0.35) 10*3/uL Sodium (137-145) mmol/L Chloride (98-107) mmol/L BUN (7-17) mg/dL Creatinine (0.52-1.04) mg/dL Glucose (74-99) mg/dL POC Glucose (mg/dL) 163 H 165 H 175 H (70-110) mg/dL 06/11/25 06/11/25 06/11/25 Range/Units 01:14 05:18 05:18 RBC 2.40 L (4.10-5.20) 10*6/uL Hgb 7.7 L (12.0-15.0) g/dL Hct 23.6 L (37.2-46.3) % MCV 98.3 H (80.0-97.0) fL MCH 32.1 H (27.0-32.0) pg Eosinophils # 0.36 H (0.04-0.35) 10*3/uL Sodium 129 L (137-145) mmol/L Chloride 94 L (98-107) mmol/L BUN 55 H (7-17) mg/dL Creatinine 5.72 H (0.52-1.04) mg/dL Glucose 133 H (74-99) mg/dL POC Glucose (mg/dL) 141 H (70-110) mg/dL 06/11/25 06/11/25 Range/Units 06:35 11:16 RBC (4.10-5.20) 10*6/uL Hgb (12.0-15.0) g/dL Hct (37.2-46.3) % MCV (80.0-97.0) fL MCH (27.0-32.0) pg Eosinophils # (0.04-0.35) 10*3/uL Sodium (137-145) mmol/L Chloride (98-107) mmol/L BUN (7-17) mg/dL Creatinine (0.52-1.04) mg/dL Glucose (74-99) mg/dL POC Glucose (mg/dL) 177 H 167 H (70-110) mg/dL Assessment and Plan Assessment: Acute diabetic ketoacidosis, recovered Acute anion gap metabolic acidosis secondary to above, recovered End-stage renal disease, on hemodialysis History of noncompliance with treatment including insulin and hemodialysis Fluid overload requiring urgent hemodialysis and removal of 2 L of fluids on her initial presentation Benign essential hypertension Acute metabolic encephalopathy and mental status changes on her initial presentation History of seizure disorder Anemia of chronic disease History of CVA/TIA History of optic neuritis History of hypothyroidism Recurrent episodes of hyperkalemia secondary to renal failure : The patient was seen and evaluated Labs and medications reviewed Transitioned back to [facility]] Receiving hemodialysis today Stable and on 2 L nasal cannula Titrate the FiO2 as tolerated Increase activity as tolerated Home medications resumed Remains a regular medical floor overflow I have personally seen and examined the patient, performed the documentation and the assessment and plan as written. Number of minutes spent on the visit: 10 Dictation was produced using [employer] dictation software. Please excuse any grammatical, word or spelling errors..
[2025-06-11 12:13] VITALS: BMI 27.1
--- NOTE | 2025-06-11 13:39 | P.PN ---
Subjective Patient is here for follow-up for end-stage renal disease. Seen on hemodialysis today Goal UF about 3 L today and as blood pressure has been on the lower side Patient is awake Trying to increase oral intake. Objective - Vital Signs Vital signs: Vital Signs Temp 98 F 06/11/25 12:19 Pulse 66 06/11/25 12:19 Resp 18 06/11/25 12:19 BP 127/66 06/11/25 12:19 Pulse Ox 97 06/11/25 08:00 FiO2 50 06/09/25 19:01 Intake & Output 06/10/25 06/11/25 06/11/25 18:59 06:59 18:59 Intake Total 1534.102 480 400 Output Total 6800 Balance 1534.102 480 -6400 Weight 81 kg 81 kg Intake: Intake, IV Titration 1534.102 Amount D5-0.45% NaCl with KCl 1500 20Meq/l 1,000 ml @ 150 mls/hr IV .Q6H40M [facility] Rx# :[id number] Insulin Regular 100 unit 34.102 In Sodium Chloride 0.9% 100 ml @ 0.1 UNITS/KG/HR 7.626 mls/hr IV .[id number] [facility] Rx#:[id number] Oral 480 Hemodialysis 400 Output: Hemodialysis 3600 Hemodialysis Net Amount 3200 Other: # Bowel Movements 1 - Exam Patient is awake, comfortable, no acute distress Examination of the heart S1 and S2 Examination of the lungs bilateral breath sounds are heard Abdomen is soft nontender Examination of lower extremities shows no evidence of edema [employer] exam grossly intact - Labs CBC & Chem 7: 06/11/25 05:18 06/11/25 05:18 Labs: Abnormal Lab Results - Last 24 Hours (Table) 06/10/25 06/10/25 06/10/25 Range/Units 13:37 14:06 15:46 RBC (4.10-5.20) 10*6/uL Hgb (12.0-15.0) g/dL Hct (37.2-46.3) % MCV (80.0-97.0) fL MCH (27.0-32.0) pg Eosinophils # (0.04-0.35) 10*3/uL Sodium 128 L (137-145) mmol/L Chloride 92 L (98-107) mmol/L BUN 52 H (7-17) mg/dL Creatinine 4.98 H (0.52-1.04) mg/dL Glucose 132 H (74-99) mg/dL POC Glucose (mg/dL) 163 H 165 H (70-110) mg/dL 06/10/25 06/11/25 06/11/25 Range/Units 17:14 01:14 05:18 RBC 2.40 L (4.10-5.20) 10*6/uL Hgb 7.7 L (12.0-15.0) g/dL Hct 23.6 L (37.2-46.3) % MCV 98.3 H (80.0-97.0) fL MCH 32.1 H (27.0-32.0) pg Eosinophils # 0.36 H (0.04-0.35) 10*3/uL Sodium (137-145) mmol/L Chloride (98-107) mmol/L BUN (7-17) mg/dL Creatinine (0.52-1.04) mg/dL Glucose (74-99) mg/dL POC Glucose (mg/dL) 175 H 141 H (70-110) mg/dL 06/11/25 06/11/25 06/11/25 Range/Units 05:18 06:35 11:16 RBC (4.10-5.20) 10*6/uL Hgb (12.0-15.0) g/dL Hct (37.2-46.3) % MCV (80.0-97.0) fL MCH (27.0-32.0) pg Eosinophils # (0.04-0.35) 10*3/uL Sodium 129 L (137-145) mmol/L Chloride 94 L (98-107) mmol/L BUN 55 H (7-17) mg/dL Creatinine 5.72 H (0.52-1.04) mg/dL Glucose 133 H (74-99) mg/dL POC Glucose (mg/dL) 177 H 167 H (70-110) mg/dL Assessment and Plan Assessment: 1. End-stage renal disease maintained on hemodialysis on Wednesday. she was dialyzed urgently on admission due to hyperkalemia 2. T1DM, admitted with DKA , management per ICU team 3. Hypertension with chronic kidney disease. Stable. 4. History of pericardial effusion. 5. Metabolic acidosis secondary to DKA and lactic acidosis. Improved. 6. Anemia of chronic kidney disease. Iron replete. 7. Hyperkalemia due to missed HD, resolved post hemodialysis Plan: Repeat hemodialysis in a.m. Monitor blood sugars Add aranesp
[2025-06-11 14:11] VITALS: BP 131/71; PULSE 79; RESP 15; TEMP 97.9
[2025-06-11] MEDS: DARBEPOETIN ALFA 60 MCG/0.3 ML SYRINGE SQ SCH (16:57)
== END 2025-06-11 17:33 | disposition home health service (06) | DRG 640 ==
LOC: EC 06:32 → 3SCARD 08:15 → 2SICU 19:06
PROVIDERS: ADMIT Hospitalist; ATTEND Hospitalist
PROC: 5A1D70Z Performance of Urinary Filtration, Intermittent, Less than 6 Hours Per Day (ICD-10-PCS; principal; 2025-06-09)
DX: E87.70 Fluid overload, unspecified (principal); E10.10 Type 1 diabetes mellitus with ketoacidosis without coma; G93.41 Metabolic encephalopathy; N18.6 End stage renal disease; I13.2 Hypertensive heart and chronic kidney disease with heart failure and with stage 5 chronic kidney disease, or end stage renal disease; Z99.2 Dependence on renal dialysis; I50.9 Heart failure, unspecified; E10.22 Type 1 diabetes mellitus with diabetic chronic kidney disease; G40.909 Epilepsy, unspecified, not intractable, without status epilepticus; I69.398 Other sequelae of cerebral infarction; E03.9 Hypothyroidism, unspecified; D63.1 Anemia in chronic kidney disease; E10.319 Type 1 diabetes mellitus with unspecified diabetic retinopathy without macular edema; E10.43 Type 1 diabetes mellitus with diabetic autonomic (poly)neuropathy; Z79.4 Long term (current) use of insulin; Z11.52 Encounter for screening for COVID-19; K31.84 Gastroparesis; H54.7 Unspecified visual loss; E87.5 Hyperkalemia; Z87.19 Personal history of other diseases of the digestive system; Z79.82 Long term (current) use of aspirin; Z79.84 Long term (current) use of oral hypoglycemic drugs; Z79.890 Hormone replacement therapy; Z79.899 Other long term (current) drug therapy; Z82.49 Family history of ischemic heart disease and other diseases of the circulatory system; Z91.199 Patient's noncompliance with other medical treatment and regimen due to unspecified reason; Z88.5 Allergy status to narcotic agent; Z88.1 Allergy status to other antibiotic agents; Z90.49 Acquired absence of other specified parts of digestive tract
CPT/HCPCS: 36415; 71045; 71046; 80048; 80051; 80053; 82009; 82565; 82947; 83605; 83735; 83880; 84100; 84484; 84520; 85025; 85610; 85730; 87636; 90935; 93005; 96361; 96365; 96366; 96375; 96376; 99291